=== PATIENT | female | born 2000 | race African-American/Black ===

== ENCOUNTER 2018-10-26 10:47 | Inpatient (IN) ==
[2018-10-26] MEDS ORDERED: cefTRIAXone SODIUM 2,000 MG/70 ML BAG IV STA (12:16)
[2018-10-26] MEDS ORDERED: MoRPHine SULFATE 10 MG/ML CARP/VIAL IV STA (12:16)
[2018-10-26] MEDS ORDERED: ACETAMINOPHEN 1,000 MG/100 ML VIAL IV STA (12:16)
[2018-10-26] MEDS ORDERED: SODIUM CHLORIDE 0.9% 1000ML 2,000 ML IV STA (12:22)
[2018-10-26 12:29] LABS: Basophils # (auto) 0.05 K/uL (0-0.2); Basophils % (auto) 0.9 %; Eosinophils # (auto) 0.08 K/uL (0-0.5); Eosinophils % (auto) 1.5 %; Hematocrit (blood only) 23.6 % (37-47); Hemoglobin 8.7 g/dL (12.0-16.0); Immature Granulocytes # (auto) 0.03 K/uL (0.00-0.02); Immature Granulocytes % (auto) 0.6 %; Lymphocytes % (auto) 18.8 %; Mean Corpuscular Hgb Conc 36.9 g/dL (32-36); Mean Corpuscular Volume 97.5 fL (80-100); Mean Platelet Volume 10.1 fL (7.4-10.4); Monocytes # (auto) 0.58 K/uL (0.11-0.59); Monocytes % (auto) 10.9 %; Neutrophils # (auto) 3.57 K/uL (1.4-6.5); Neutrophils % (auto) 67.3 %; Nucleated RBC % (auto) 1.9 %; Platelet Count 372 K/uL (130-400); RDW Coefficient of Variation 19.9 % (11.5-14.5); RDW Standard Deviation 69.9 fL (36.4-46.3); Red Blood Count 2.42 M/uL (4.2-5.4); Reticulocyte % 11.1 % (0.5-2.0); Reticulocytes # 0.27 10^6/uL (0.02-0.10); White Blood Count 5.31 K/uL (4.8-10.8)
[2018-10-26 12:35] LABS: Pregnancy Test, Serum Negative (Negative)
[2018-10-26 12:38] LABS: Alanine Aminotransferase 23 U/L (12-78); Albumin Level 4.1 gm/dl (3.4-5.0); Aspartate Aminotransferase 44 U/L (15-37); BUN Creatinine Ratio 4.4 (10-20); Blood Urea Nitrogen 2 mg/dl (7-18); Carbon Dioxide 24 mmol/L (21-32); Chloride 109 mmol/L (98-107); Creatinine Clr Calc Pharmacy 151.9 ml/min; Est GFR (African American) > 150.0; Est GFR (Non-African American) 133.5; Glucose 85 mg/dl (70-99); Magnesium 1.8 mg/dl (1.8-2.4); Potassium 3.7 mmol/L (3.5-5.1); Sodium 140 mmol/L (136-145)
[2018-10-26 12:40] LABS: Alkaline Phosphatase 67 U/L (45-117); Bilirubin,Total 3.5 mg/dl (0.2-1); Phosphorus 3.6 mg/dl (2.5-4.9); Total Protein 8.1 gm/dl (6.4-8.2)
[2018-10-26 12:43] LABS: INR 1.2 (0.9-1.1); Partial Thromboplastin Ratio 0.9; Partial Thromboplastin Time 23.9 Seconds (21.0-31.0); Prothrombin Time 11.7 Seconds (9.0-12.0)
--- NOTE | 2018-10-26 13:46 | XRay Report ---
XR chest 1V portable CLINICAL HISTORY: Sepsis. COMPARISON STUDY: No previous studies for comparison. FINDINGS: Lung volumes are normal. There is no pneumothorax or pleural effusion. No consolidation is noted. There is mild enlargement of the cardiac silhouette. No evidence for pulmonary edema. IMPRESSION: 1. Mild enlargement of the cardiac silhouette. 2. No consolidation. No evidence for pulmonary edema Electronically signed by: Carl Jay M.D. 10/26/2018 1:44 PM
[2018-10-26 14:23] LABS: Appearance Urine Clear (Clear); Bilirubin Urine Negative (Negative); Blood Urine Negative (Negative); Color Urine Yellow; Glucose Urine UA Negative (Negative); Ketones Urine Negative (Negative); Leukocyte Esterase Urine Negative (Negative); Nitrite Urine Negative (Negative); Protein Urine Negative (Negative); Specific Gravity Urine 1.009 (1.000-1.030); Urobilinogen Urine Negative (Negative); pH Urine 7.5 (4.5-7.5)
[2018-10-26] MEDS ORDERED: PROCHLORPERAZINE 2 ML IV ONE (14:36)
[2018-10-26] MEDS ORDERED: DiphenhydrAMINE HCL 50 MG/ML VIAL IV STA (14:58)
--- NOTE | 2018-10-26 16:09 | History & Physical Report ---
Date of Service October 26, 2018 Assessment & Plan (1) Sickle cell crisis: 18-year-old female with sickle cell anemia presenting with presumed crisis. Has history of acute chest syndrome in the past. Does not appear to have ACS at this time. -Admit to medical floor -Pain control with Dilaudid as needed -Supplemental oxygen - hydration with half-normal saline -Hematology consultation. Appreciate assistance with this case. Patient will need to establish care in the area -Close monitoring for development of acute chest syndrome -Follow cultures FENhalf-normal saline. Monitor electrolytes and replete as needed. Regular diet as tolerated ProphylaxisLovenox [place] Dispositionadmission to medical floor Present on Admission?: Yes History of Present Illness Chief Complaint: Sickle cell crisis Primary Care Provider: [facility] Patient is a 20-year-old black female with history of sickle cell anemia presenting with sickle cell crisis. Patient somnolent during exam after receiving pain medication and Benadryl for symptom management. Difficult to obtain information. She states that she was diagnosed with sickle cell anemia as a baby. She has had exacerbations in the past, acute chest syndrome last spring. She follows with hematology at [place]. She was on hydroxyurea in the past but was recently taken off. She reports being up-to-date on age-appropriate vaccinations. 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 States that she has pain in her entire body and head which has progressed over the last week. Pain is similar to her prior sickle cell crises. At present she denies chest pain or shortness of breath. She does report a subjective fever with chills yesterday. No additional complaints. ER course: Tylenol, ceftriaxone, Benadryl, morphine, Compazine, normal saline Allergies Allergy/AdvReac Type Severity Reaction Status Date / Time No Known Allergies Allergy Unverified 10/26/18 11:52 Home Medications Home Medications Medication Instructions Recorded Confirmed Type Jobelyn 1 tab PO HS 10/26/18 10/26/18 History cholecalciferol (vitamin D3) 0 unit PO HS 10/26/18 10/26/18 History [Vitamin D3] folic acid 0 mcg PO HS 10/26/18 10/26/18 History ibuprofen 200 mg PO Q6H PRN 10/26/18 10/26/18 History Past Med/Surg History Medical History Pneumonia Sickle cell anemia Family History Other Family history non-contributory Social History marital status: Single Current Living Situation: Other Current Living Situation Comment: Roommate 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 Feels Safe at Home: Yes Smoking Status: Never smoker Hx Alcohol Use: No Hx Substance Use: No Review of Systems Review of Systems: All systems reviewed & are unremarkable except as noted in HPI & below Physical Exam Physical Exam: General: patient somnolent, arousable, answers some questions then drifts back off to sleep. Protecting airway. Following some commands. Diffuse tenderness with palpation Skin: warm, dry, intact, no rashes or lesions HEENT: NC/AT, PERRL, EOMI, anicteric sclera, conjunctiva without injection, external ear normal to inspection and nontender, nares patent, moist mucus membranes, dentition intact, no oropharyngeal lesions, neck supple, trachea midline, no LAD, no thyromegaly, no JVD Heart: +S1/S2, regular, 2/6 systolic ejection murmur at left second intercostal space with radiation across precordium Lungs: equal air entry bilaterally, no rales/rhonchi/wheezes Abd: +BS, soft, NT/ND, no masses/organomegaly/ascites Ext: warm, 2+ pulses in UE/LE bilaterally, no clubbing/cyanosis or edema Neuro: nonfocal, moving all extremities on command with equal strength 5/5 Results & Data Vital Signs (Past 12 Hours) Vital Signs Temp Pulse Pulse Resp BP BP Pulse Ox 10/26/18 15:30 53 L 16 111/68 95 10/26/18 14:12 46 L 24 106/72 96 10/26/18 13:01 63 18 102/61 95 10/26/18 12:10 59 L 22 116/67 97 10/26/18 10:58 37 C 89 16 124/74 98 Laboratory Results Lab Results 10/26/18 10/26/18 10/26/18 Range/Units 11:29 11:29 11:29 WBC 5.31 (4.8-10.8) K/uL RBC 2.42 L (4.2-5.4) M/uL Hgb 8.7 L (12.0-16.0) g/dL Hct 23.6 L (37-47) % MCV 97.5 (80-100) fL MCH 36.0 H (25-34) pg MCHC 36.9 H (32-36) g/dL RDW Std Deviation 69.9 H (36.4-46.3) fL RDW Coeff of Nando 19.9 H (11.5-14.5) % Plt Count 372 (130-400) K/uL MPV 10.1 (7.4-10.4) fL Immature Gran % (Auto) 0.6 % Neut % (Auto) 67.3 % Lymph % (Auto) 18.8 % [place] % (Auto) 10.9 % Eos % (Auto) 1.5 % Baso % (Auto) 0.9 % Reticulocyte % (Auto) 11.1 H (0.5-2.0) % Immature Gran # (Auto) 0.03 H (0.00-0.02) K/uL Neut # (Auto) 3.57 (1.4-6.5) K/uL Lymph # (Auto) 1.00 L (1.2-3.4) K/uL [place] # (Auto) 0.58 (0.11-0.59) K/uL Eos # (Auto) 0.08 (0-0.5) K/uL Baso # (Auto) 0.05 (0-0.2) K/uL Reticulocyte # 0.27 H (0.02-0.10) 10^6/uL Absolute Nucleated RBC 0.10 H (0-0) K/uL Nucleated RBC % (auto) 1.9 % PT 11.7 (9.0-12.0) Seconds INR 1.2 H (0.9-1.1) APTT 23.9 (21.0-31.0) Seconds PTT Ratio 0.9 Sodium 140 (136-145) mmol/L Potassium 3.7 (3.5-5.1) mmol/L Chloride 109 H (98-107) mmol/L Carbon Dioxide 24 (21-32) mmol/L Anion Gap 7.0 (3-11) BUN 2 L (7-18) mg/dl Creatinine 0.57 L (0.6-1.2) mg/dl Est Cr Clr Drug Dosing 151.9 ml/min Est GFR ( Amer) > 150.0 Est GFR (Non-Af Amer) 133.5 BUN/Creatinine Ratio 4.4 L (10-20) Glucose 85 (70-99) mg/dl Lactate (0.4-2.0) mmol/L Calcium 9.0 (8.5-10.1) mg/dl Phosphorus 3.6 (2.5-4.9) mg/dl Magnesium 1.8 (1.8-2.4) mg/dl Total Bilirubin 3.5 H (0.2-1) mg/dl AST 44 H (15-37) U/L ALT 23 (12-78) U/L Alkaline Phosphatase 67 (45-117) U/L Total Protein 8.1 (6.4-8.2) gm/dl Albumin 4.1 (3.4-5.0) gm/dl Globulin 4.0 (2.5-4.0) gm/dl Albumin/Globulin Ratio 1.0 (0.9-2) HCG, Qual (Negative) Urine Color Urine Appearance (Clear) Urine pH (4.5-7.5) Ur Specific [place] (1.000-1.030) Urine Protein (Negative) Urine Glucose (UA) (Negative) Urine Ketones (Negative) Urine Blood (Negative) Urine Nitrite (Negative) Urine Bilirubin (Negative) Urine Urobilinogen (Negative) Ur Leukocyte Esterase (Negative) 10/26/18 10/26/18 10/26/18 Range/Units 11:29 12:47 14:10 WBC (4.8-10.8) K/uL RBC (4.2-5.4) M/uL Hgb (12.0-16.0) g/dL Hct (37-47) % MCV (80-100) fL MCH (25-34) pg MCHC (32-36) g/dL RDW Std Deviation (36.4-46.3) fL RDW Coeff of Nando (11.5-14.5) % Plt Count (130-400) K/uL MPV (7.4-10.4) fL Immature Gran % (Auto) % Neut % (Auto) % Lymph % (Auto) % [place] % (Auto) % Eos % (Auto) % Baso % (Auto) % Reticulocyte % (Auto) (0.5-2.0) % Immature Gran # (Auto) (0.00-0.02) K/uL Neut # (Auto) (1.4-6.5) K/uL Lymph # (Auto) (1.2-3.4) K/uL [place] # (Auto) (0.11-0.59) K/uL Eos # (Auto) (0-0.5) K/uL Baso # (Auto) (0-0.2) K/uL Reticulocyte # (0.02-0.10) 10^6/uL Absolute Nucleated RBC (0-0) K/uL Nucleated RBC % (auto) % PT (9.0-12.0) Seconds INR (0.9-1.1) APTT (21.0-31.0) Seconds PTT Ratio Sodium (136-145) mmol/L Potassium (3.5-5.1) mmol/L Chloride (98-107) mmol/L Carbon Dioxide (21-32) mmol/L Anion Gap (3-11) BUN (7-18) mg/dl Creatinine (0.6-1.2) mg/dl Est Cr Clr Drug Dosing ml/min Est GFR ( Amer) Est GFR (Non-Af Amer) BUN/Creatinine Ratio (10-20) Glucose (70-99) mg/dl Lactate 0.7 (0.4-2.0) mmol/L Calcium (8.5-10.1) mg/dl Phosphorus (2.5-4.9) mg/dl Magnesium (1.8-2.4) mg/dl Total Bilirubin (0.2-1) mg/dl AST (15-37) U/L ALT (12-78) U/L Alkaline Phosphatase (45-117) U/L Total Protein (6.4-8.2) gm/dl Albumin (3.4-5.0) gm/dl Globulin (2.5-4.0) gm/dl Albumin/Globulin Ratio (0.9-2) HCG, Qual Negative (Negative) Urine Color Yellow Urine Appearance Clear (Clear) Urine pH 7.5 (4.5-7.5) Ur Specific [place] 1.009 (1.000-1.030) Urine Protein Negative (Negative) Urine Glucose (UA) Negative (Negative) Urine Ketones Negative (Negative) Urine Blood Negative (Negative) Urine Nitrite Negative (Negative) Urine Bilirubin Negative (Negative) Urine Urobilinogen Negative (Negative) Ur Leukocyte Esterase Negative (Negative) Diagnostic Findings XR chest 1V portable CLINICAL HISTORY: Sepsis. COMPARISON STUDY: No previous studies for comparison. FINDINGS: Lung volumes are normal. There is no pneumothorax or pleural effusion. No consolidation is noted. There is mild enlargement of the cardiac silhouette. No evidence for pulmonary edema. IMPRESSION: 1. Mild enlargement of the cardiac silhouette. 2. No consolidation. No evidence for pulmonary edema Electronically signed by: Carl Jay M.D. 10/26/2018 1:44 PM Dictated: 10/26/18 1344 Transcribed: 10/26/18 1344 ECG Additional Comments: Study shows sinus bradycardia at 52 bpm with sinus arrhythmia, NJ = 200, QRS = 82, QTc = 425, T wave inversions present in anterior leads. No previous studies for comparison Code Status & VTE Plan Code Status Full code VTE Prophylaxis Plan VTE Prophylaxis will be ordered: Yes PG Care Time/CCT Total # of Minutes Spent Total Time Spent with Patient: Total time spent is greater than 50% in coordination of care (as documented) at patient's floor/unit and/or counseling patient:
--- NOTE | 2018-10-26 17:35 | Emergency Department Note ---
Entered by Lee Ann Mata acting as a scribe for History of Present Illness General Chief complaint: Fever Stated complaint: SICKLE CELL, FEVER Time Seen by Provider: 10/26/18 11:48 Source: patient History of Present Illness Provider complaint: Fever Onset (ago): hour(s) Location: head and back Pain Consistency: + constant Quality: + constant Associated symptoms: + chest pain (resolved ), + fever/chills, + shortness of breath (resolved ) and + other (Positive: head pain, back pain. Negative: d ysuria); no cough and no nausea/vomiting The patient is a 18 year old female with past medical history of pneumonia, sickle cell anemia, who presents to the ED with complaints of constant fever and chills that started a few hours ago. The patient reports she woke up from the chills and developed a fever. She notes she has sickle cell anemia and needs to find a doctor to follow up with since she just transferred to [place]. The patient additionally notes she has been having a moderate crisis since last week. She states her last crisis prior to this was in May. The patient reports she had chest pain and shortness of breath for a little. She notes she has head and back pain. The patient denies nausea, vomiting, dysuria, or cough. Home Medications Home Medications Medication Instructions Recorded Confirmed Type Jobelyn 1 tab PO HS 10/26/18 10/26/18 History cholecalciferol (vitamin D3) 0 unit PO HS 10/26/18 10/26/18 History [Vitamin D3] folic acid 0 mcg PO HS 10/26/18 10/26/18 History ibuprofen 200 mg PO Q6H PRN 10/26/18 10/26/18 History Allergies Allergy/AdvReac Type Severity Reaction Status Date / Time No Known Allergies Allergy Unverified 10/26/18 11:52 Past Med/Surg History Medical History Pneumonia Sickle cell anemia Family History Other Family history non-contributory Social History marital status: Single Current Living Situation: Other Current Living Situation Comment: Roommate 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 Feels Safe at Home: Yes Smoking Status: Never smoker Hx Alcohol Use: No Hx Substance Use: No Review of Systems See HPI for pertinent positives & negatives. and A total of 10 systems reviewed and were otherwise negative Physical Exam Vital Signs Vital Signs - 24 hr 10/26/18 10:58 10/26/18 12:10 10/26/18 13:01 Temperature 37 C Temperature Source Oral Sepsis Recent Fever Within 48 Hours No Sepsis New/Unexplained Change in Mental Status No Sepsis Action Taken by Nursing No Action Required Pulse Rate 89 Pulse Rate [Left Finger] 59 L 63 Pulse Rhythm [Left Finger] Respiratory Rate 16 22 18 Respiratory Effort / Characteristics Non-Labored Respiratory Depth Normal Respiratory Pattern Blood Pressure 124/74 Blood Pressure [Left Arm] 116/67 102/61 Blood Pressure Mean 90 Blood Pressure Mean [Left Arm] 83 74 Pulse Oximetry 98 97 95 Oxygen Delivery Method Room Air Room Air 10/26/18 14:12 10/26/18 15:30 10/26/18 16:00 Temperature Temperature Source Sepsis Recent Fever Within 48 Hours Sepsis New/Unexplained Change in Mental Status Sepsis Action Taken by Nursing Pulse Rate 55 L Pulse Rate [Left Finger] 46 L 53 L Pulse Rhythm [Left Finger] Regular Respiratory Rate 24 16 13 Respiratory Effort / Characteristics Non-Labored Spontaneous Respiratory Depth Normal Respiratory Pattern Regular Blood Pressure 114/72 Blood Pressure [Left Arm] 106/72 111/68 Blood Pressure Mean 86 Blood Pressure Mean [Left Arm] 83 82 Pulse Oximetry 96 95 Oxygen Delivery Method Room Air Room Air 10/26/18 16:30 10/26/18 17:00 Temperature Temperature Source Sepsis Recent Fever Within 48 Hours Sepsis New/Unexplained Change in Mental Status Sepsis Action Taken by Nursing Pulse Rate 54 L 54 L Pulse Rate [Left Finger] Pulse Rhythm [Left Finger] Respiratory Rate 14 15 Respiratory Effort / Characteristics Respiratory Depth Respiratory Pattern Blood Pressure 122/75 110/69 Blood Pressure [Left Arm] Blood Pressure Mean 90 82 Blood Pressure Mean [Left Arm] Pulse Oximetry Oxygen Delivery Method GENERAL: Awake, alert, fatigued appearing, in no distress HENT: Normocephalic, atraumatic. Oropharynx with dry mucous membranes and otherwise unremarkable. EYES: Normal conjunctiva. Sclera non-icteric. NECK: Supple. No nuchal rigidity. FROM. No JVD. RESPIRATORY: CTAP CARDIAC: Regular rate, normal rhythm. Extremities warm and well perfused. Pulses equal. ABDOMEN: Soft, non-distended. No tenderness to palpation. No rebound or guarding. No masses. RECTAL: Deferred. MUSCULOSKELETAL: Chest examination reveals no tenderness. The back is symmetrical on inspection without obvious abnormality. There is no CVA tenderness to palpation. No joint edema. LOWER EXTREMITIES: Calves are equal size bilaterally and non-tender. No edema. No discoloration. NEURO: Normal sensorium. No sensory or motor deficits noted. SKIN: No rash or jaundice noted. Course 1210: Past medical records reviewed. The patient was evaluated in room C11B. A complete history and physical exam was performed. 1449: I reevaluated the patient and she is feeling like her breathing is constricted. I discussed her test results and the treatment plan with her. She verbally agrees and understands. 1508: I discussed the patient's case with Dr. Keerthi RUIZ Hospitalist. She will evaluate the patient for further management. Consultations Consultation #1: I discussed the patient's case with Dr. Keerthi RUIZ Hospitalist. She will evaluate the patient for further management. Time: 15:08 Administered Medications Discontinued Medications Diphenhydramine HCl (Benadryl) 25 mg IV NOW STA Stop: 10/26/18 14:59 Last Admin: 10/26/18 15:08 Dose: 25 mg Documented by: [id number] Acetaminophen (Ofirmev) 1,000 mg in 100 mls @ 400 mls/hr IV NOW STA Stop: 10/26/18 12:30 Last Infusion: 10/26/18 13:00 Dose: 0 mls/hr Documented by: [id number] Admin: 10/26/18 12:34 Dose: 400 mls/hr Documented by: [id number] Ceftriaxone Sodium (Rocephin) 2,000 mg in 70 mls @ 140 mls/hr IV NOW STA Stop: 10/26/18 12:45 Last Infusion: 10/26/18 13:27 Dose: 0 mls/hr Documented by: [id number] Admin: 10/26/18 13:00 Dose: 140 mls/hr Documented by: [id number] Sodium Chloride (Nss 1000ml) 2,000 mls @ 999 mls/hr IV .Q2H1M STA Stop: 10/26/18 14:22 Last Infusion: 10/26/18 14:06 Dose: 0 mls/hr Documented by: [id number] Admin: 10/26/18 12:36 Dose: 999 mls/hr Documented by: [id number] Prochlorperazine (Compazine) 2 mls @ 1 mls/min IV ONE ONE Stop: 10/26/18 14:37 Last Admin: 10/26/18 14:44 Dose: 1 mls/min Documented by: [id number] Morphine Sulfate (Morphine Sulfate) 8 mg IV NOW STA Stop: 10/26/18 12:17 Last Admin: 10/26/18 12:34 Dose: 8 mg Documented by: [id number] Medical Decision Making Differential Diagnosis Differential diagnosis: Etiologies such as viral syndrome, otitis, pharyngitis, pneumonia, influenza, meningitis, urinary tract infection, sepsis, bacteremia, as well as others were entertained. Medical Records Attestation: I reviewed the patient's medical records. Home Medications Current Medication List: was personally reviewed by me Laboratory Data Attestation: I reviewed the patient's lab results. Result diagrams: 10/26/18 11:29 10/26/18 11:29 Lab Results 10/26/18 10/26/18 10/26/18 Range/Units 11:29 11:29 11:29 WBC 5.31 (4.8-10.8) K/uL RBC 2.42 L (4.2-5.4) M/uL Hgb 8.7 L (12.0-16.0) g/dL Hct 23.6 L (37-47) % MCV 97.5 (80-100) fL MCH 36.0 H (25-34) pg MCHC 36.9 H (32-36) g/dL RDW Std Deviation 69.9 H (36.4-46.3) fL RDW Coeff of Nando 19.9 H (11.5-14.5) % Plt Count 372 (130-400) K/uL MPV 10.1 (7.4-10.4) fL Immature Gran % (Auto) 0.6 % Neut % (Auto) 67.3 % Lymph % (Auto) 18.8 % [place] % (Auto) 10.9 % Eos % (Auto) 1.5 % Baso % (Auto) 0.9 % Reticulocyte % (Auto) 11.1 H (0.5-2.0) % Immature Gran # (Auto) 0.03 H (0.00-0.02) K/uL Neut # (Auto) 3.57 (1.4-6.5) K/uL Lymph # (Auto) 1.00 L (1.2-3.4) K/uL [place] # (Auto) 0.58 (0.11-0.59) K/uL Eos # (Auto) 0.08 (0-0.5) K/uL Baso # (Auto) 0.05 (0-0.2) K/uL Reticulocyte # 0.27 H (0.02-0.10) 10^6/uL Absolute Nucleated RBC 0.10 H (0-0) K/uL Nucleated RBC % (auto) 1.9 % PT 11.7 (9.0-12.0) Seconds INR 1.2 H (0.9-1.1) APTT 23.9 (21.0-31.0) Seconds PTT Ratio 0.9 Sodium 140 (136-145) mmol/L Potassium 3.7 (3.5-5.1) mmol/L Chloride 109 H (98-107) mmol/L Carbon Dioxide 24 (21-32) mmol/L Anion Gap 7.0 (3-11) BUN 2 L (7-18) mg/dl Creatinine 0.57 L (0.6-1.2) mg/dl Est Cr Clr Drug Dosing 151.9 ml/min Est GFR ( Amer) > 150.0 Est GFR (Non-Af Amer) 133.5 BUN/Creatinine Ratio 4.4 L (10-20) Glucose 85 (70-99) mg/dl Lactate (0.4-2.0) mmol/L Calcium 9.0 (8.5-10.1) mg/dl Phosphorus 3.6 (2.5-4.9) mg/dl Magnesium 1.8 (1.8-2.4) mg/dl Total Bilirubin 3.5 H (0.2-1) mg/dl AST 44 H (15-37) U/L ALT 23 (12-78) U/L Alkaline Phosphatase 67 (45-117) U/L Troponin I (0-0.045) ng/ml Total Protein 8.1 (6.4-8.2) gm/dl Albumin 4.1 (3.4-5.0) gm/dl Globulin 4.0 (2.5-4.0) gm/dl Albumin/Globulin Ratio 1.0 (0.9-2) HCG, Qual (Negative) Urine Color Urine Appearance (Clear) Urine pH (4.5-7.5) Ur Specific [place] (1.000-1.030) Urine Protein (Negative) Urine Glucose (UA) (Negative) Urine Ketones (Negative) Urine Blood (Negative) Urine Nitrite (Negative) Urine Bilirubin (Negative) Urine Urobilinogen (Negative) Ur Leukocyte Esterase (Negative) 10/26/18 10/26/18 10/26/18 Range/Units 11:29 11:29 12:47 WBC (4.8-10.8) K/uL RBC (4.2-5.4) M/uL Hgb (12.0-16.0) g/dL Hct (37-47) % MCV (80-100) fL MCH (25-34) pg MCHC (32-36) g/dL RDW Std Deviation (36.4-46.3) fL RDW Coeff of Nando (11.5-14.5) % Plt Count (130-400) K/uL MPV (7.4-10.4) fL Immature Gran % (Auto) % Neut % (Auto) % Lymph % (Auto) % [place] % (Auto) % Eos % (Auto) % Baso % (Auto) % Reticulocyte % (Auto) (0.5-2.0) % Immature Gran # (Auto) (0.00-0.02) K/uL Neut # (Auto) (1.4-6.5) K/uL Lymph # (Auto) (1.2-3.4) K/uL [place] # (Auto) (0.11-0.59) K/uL Eos # (Auto) (0-0.5) K/uL Baso # (Auto) (0-0.2) K/uL Reticulocyte # (0.02-0.10) 10^6/uL Absolute Nucleated RBC (0-0) K/uL Nucleated RBC % (auto) % PT (9.0-12.0) Seconds INR (0.9-1.1) APTT (21.0-31.0) Seconds PTT Ratio Sodium (136-145) mmol/L Potassium (3.5-5.1) mmol/L Chloride (98-107) mmol/L Carbon Dioxide (21-32) mmol/L Anion Gap (3-11) BUN (7-18) mg/dl Creatinine (0.6-1.2) mg/dl Est Cr Clr Drug Dosing ml/min Est GFR ( Amer) Est GFR (Non-Af Amer) BUN/Creatinine Ratio (10-20) Glucose (70-99) mg/dl Lactate 0.7 (0.4-2.0) mmol/L Calcium (8.5-10.1) mg/dl Phosphorus (2.5-4.9) mg/dl Magnesium (1.8-2.4) mg/dl Total Bilirubin (0.2-1) mg/dl AST (15-37) U/L ALT (12-78) U/L Alkaline Phosphatase (45-117) U/L Troponin I < 0.015 (0-0.045) ng/ml Total Protein (6.4-8.2) gm/dl Albumin (3.4-5.0) gm/dl Globulin (2.5-4.0) gm/dl Albumin/Globulin Ratio (0.9-2) HCG, Qual Negative (Negative) Urine Color Urine Appearance (Clear) Urine pH (4.5-7.5) Ur Specific [place] (1.000-1.030) Urine Protein (Negative) Urine Glucose (UA) (Negative) Urine Ketones (Negative) Urine Blood (Negative) Urine Nitrite (Negative) Urine Bilirubin (Negative) Urine Urobilinogen (Negative) Ur Leukocyte Esterase (Negative) 10/26/18 Range/Units 14:10 WBC (4.8-10.8) K/uL RBC (4.2-5.4) M/uL Hgb (12.0-16.0) g/dL Hct (37-47) % MCV (80-100) fL MCH (25-34) pg MCHC (32-36) g/dL RDW Std Deviation (36.4-46.3) fL RDW Coeff of Nando (11.5-14.5) % Plt Count (130-400) K/uL MPV (7.4-10.4) fL Immature Gran % (Auto) % Neut % (Auto) % Lymph % (Auto) % [place] % (Auto) % Eos % (Auto) % Baso % (Auto) % Reticulocyte % (Auto) (0.5-2.0) % Immature Gran # (Auto) (0.00-0.02) K/uL Neut # (Auto) (1.4-6.5) K/uL Lymph # (Auto) (1.2-3.4) K/uL [place] # (Auto) (0.11-0.59) K/uL Eos # (Auto) (0-0.5) K/uL Baso # (Auto) (0-0.2) K/uL Reticulocyte # (0.02-0.10) 10^6/uL Absolute Nucleated RBC (0-0) K/uL Nucleated RBC % (auto) % PT (9.0-12.0) Seconds INR (0.9-1.1) APTT (21.0-31.0) Seconds PTT Ratio Sodium (136-145) mmol/L Potassium (3.5-5.1) mmol/L Chloride (98-107) mmol/L Carbon Dioxide (21-32) mmol/L Anion Gap (3-11) BUN (7-18) mg/dl Creatinine (0.6-1.2) mg/dl Est Cr Clr Drug Dosing ml/min Est GFR ( Amer) Est GFR (Non-Af Amer) BUN/Creatinine Ratio (10-20) Glucose (70-99) mg/dl Lactate (0.4-2.0) mmol/L Calcium (8.5-10.1) mg/dl Phosphorus (2.5-4.9) mg/dl Magnesium (1.8-2.4) mg/dl Total Bilirubin (0.2-1) mg/dl AST (15-37) U/L ALT (12-78) U/L Alkaline Phosphatase (45-117) U/L Troponin I (0-0.045) ng/ml Total Protein (6.4-8.2) gm/dl Albumin (3.4-5.0) gm/dl Globulin (2.5-4.0) gm/dl Albumin/Globulin Ratio (0.9-2) HCG, Qual (Negative) Urine Color Yellow Urine Appearance Clear (Clear) Urine pH 7.5 (4.5-7.5) Ur Specific [place] 1.009 (1.000-1.030) Urine Protein Negative (Negative) Urine Glucose (UA) Negative (Negative) Urine Ketones Negative (Negative) Urine Blood Negative (Negative) Urine Nitrite Negative (Negative) Urine Bilirubin Negative (Negative) Urine Urobilinogen Negative (Negative) Ur Leukocyte Esterase Negative (Negative) Imaging Data Radiologist's Impression: Radiology results as stated below per my review and the radiologist's interpretation: XR chest 1V portable CLINICAL HISTORY: Sepsis. COMPARISON STUDY: No previous studies for comparison. FINDINGS: Lung volumes are normal. There is no pneumothorax or pleural effusion. No consolidation is noted. There is mild enlargement of the cardiac silhouette. No evidence for pulmonary edema. IMPRESSION: 1. Mild enlargement of the cardiac silhouette. 2. No consolidation. No evidence for pulmonary edema Electronically signed by: Carl Jay M.D. 10/26/2018 1:44 PM ECG Data Attestation: I personally reviewed and interpreted this ECG as follows: Indication: chest pain Rate (beats per minute): 52 Rhythm: sinus bradycardia Findings: + other (precordial T wave inversion); no ST depression, no ST elevation and no acute ischemic change Blood Pressure Blood Pressure Findings: Normal blood pressure Blood Pressure Disposition: did not require urgent referral MDM Narrative The patient is a pleasant 18-year-old woman with a past medical history of sickle cell anemia who presents emergency department with worsening body pain and feverishness that began last night per hpi. 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 On arrival the patient is fatigued appearing but no acute distress, afebrile with stable vital signs. Patient appears clinically dry. Lungs are clear. Abdomen is benign. EKG with precordial T wave inversions but otherwise no overt acute ischemia. No prior EKGs for comparison. Chest x-ray negative for acute process. There is question of cardiomegaly and limited bedside ultrasound was performed and did not demonstrate any significant pericardial effusion. WBC within normal limits. H/H 8.7/23.6 without prior lisa ues for comparison. Platelets within normal limits. Reticulocyte count is elevated 0.27 (11%) consistent with sickle cell crisis. Lactate wnl. Chemistry without acidosis. AST slightly elevated at 44, nonspecific. Otherwise, electrolytes and LFTs unremarkable. Troponin negative. UA negative for infection. Patient was feeling improved after IV fluid hydration and APAP and morphine. However given the patient's evidence of sickle cell crisis in the setting of her report of fevers reasonable to admit the patient for further hydration and monitoring. On arrival the patient did have blood cultures drawn and was treated empirically with dose of ceftriaxone. Case was discussed with Dr. Castrejon, [facility] hospitalist, who evaluate the patient for admission. Impression & Plan Sickle cell crisis, Dehydration, Feels feverish Discharge Plan Visit Data Chief Complaint: Fever Stated Complaint: SICKLE CELL, FEVER ED Provider: Robert Mobley Discharge Problem: Sickle cell crisis, Dehydration, Feels feverish Patient Disposition: Being Evaluated by Hospitalist The scribe's documentation has been prepared under my direction and personally reviewed by me in its entirety. I confirm that the note above accurately reflects all work, treatment, procedures, and medical decision making performed by me.
[2018-10-26] MEDS ORDERED: ONDANSETRON INJ 2 MG/ML 2 ML VIAL IV PRN (17:38)
[2018-10-26] MEDS ORDERED: HYDROmorphone INJ 0.5 MG/0.5 ML SYR IV PRN ×2 (17:38→19:53)
[2018-10-26] MEDS ORDERED: ENOXAPARIN INJ 40 MG/0.4 ML SYR SQ SCH (18:00)
[2018-10-26] MEDS: SODIUM CHLORIDE 0.45 % 1,000 ML IV SCH (18:13)
[2018-10-26 19:03] LABS: Anisocytosis Present; Howell-Jolly Bodies 1+; Ovalocytes 2+; Poikilocytosis Present; Polychromasia 1+; Sickle Cells 1+; Spherocytes 1+
[2018-10-26] MEDS ORDERED: SODIUM CHLORIDE 0.9% 250 ML IV PRN (20:07)
[2018-10-26] MEDS ORDERED: DiphenhydrAMINE HCL 50 MG/ML VIAL PO ONE (20:12)
[2018-10-26] MEDS ORDERED: ACETAMINOPHEN 325 MG TAB PO ONE (20:12)
[2018-10-26] MEDS ORDERED: FOLIC ACID 400 MCG TAB PO SCH (21:00)
[2018-10-27] MEDS ORDERED: Nursing to Pharmacy Communication ONE (00:32)
[2018-10-27] MEDS ORDERED: ACETAMINOPHEN 325 MG TAB PO ONE (06:00)
[2018-10-27] MEDS ORDERED: DiphenhydrAMINE HCL 50 MG/ML VIAL PO ONE (06:00)
[2018-10-27 06:09] LABS: Basophils # (auto) 0.06 K/uL (0-0.2); Basophils % (auto) 1.3 %; Eosinophils # (auto) 0.08 K/uL (0-0.5); Eosinophils % (auto) 1.7 %; Hematocrit (blood only) 21.9 % (37-47); Hemoglobin 7.9 g/dL (12.0-16.0); Immature Granulocytes # (auto) 0.02 K/uL (0.00-0.02); Immature Granulocytes % (auto) 0.4 %; Lymphocytes # (auto) 2.25 K/uL (1.2-3.4); Mean Corpuscular Hgb Conc 36.1 g/dL (32-36); Mean Corpuscular Volume 99.1 fL (80-100); Mean Platelet Volume 9.9 fL (7.4-10.4); Monocytes % (auto) 13.1 %; Neutrophils # (auto) 1.58 K/uL (1.4-6.5); Neutrophils % (auto) 34.5 %; Nucleated RBC # (auto) 0.16 K/uL (0-0); Nucleated RBC % (auto) 3.4 %; Platelet Count 306 K/uL (130-400); RDW Coefficient of Variation 19.7 % (11.5-14.5); RDW Standard Deviation 71.1 fL (36.4-46.3); Red Blood Count 2.21 M/uL (4.2-5.4); White Blood Count 4.59 K/uL (4.8-10.8)
[2018-10-27 06:46] LABS: Anisocytosis Present; Ovalocytes 1+; Polychromasia 1+; Sickle Cells 2+; Spherocytes 1+
[2018-10-27] MEDS: SODIUM CHLORIDE 0.45 % 1,000 ML IV SCH (06:47)
[2018-10-27 06:53] LABS: BUN Creatinine Ratio 5.2 (10-20); Blood Urea Nitrogen 3 mg/dl (7-18); Calcium 8.3 mg/dl (8.5-10.1); Carbon Dioxide 26 mmol/L (21-32); Chloride 109 mmol/L (98-107); Creatinine Clr Calc Pharmacy 160.3 ml/min; Est GFR (African American) > 150.0; Est GFR (Non-African American) 135.8; Glucose 103 mg/dl (70-99); Potassium 3.1 mmol/L (3.5-5.1); Sodium 141 mmol/L (136-145)
--- NOTE | 2018-10-27 08:47 | Consultation Report ---
DATE OF CONSULTATION: 10/27/2018 HEMATOLOGY CONSULTATION REASON FOR CONSULTATION: Sickle cell crisis. HISTORY OF PRESENT ILLNESS: James is a pleasant 18-year-old Iranian female who presents to [facility] with diffuse skeletal pain and profound fatigue. She actually reported chills prior to presentation as well. James was diagnosed with sickle cell anemia as a child. Her last major sickle crisis occurred in May when she was diagnosed with acute chest syndrome. She was transfused 2 units of blood at that time. Apparently, she follows with the staff latin teacher at [facility], but has not seen the continuous improvement consultant in a while. She was started on hydroxyurea and recently discontinued because of fear of infection at that time. She estimates only being off therapy for a couple of weeks. Nonetheless, she describes her pain as a dull persistent achy skeletal pain involving her complete skeleton, specifically her head. She denies shortness of breath or dyspnea. Chest x-ray was otherwise unremarkable. She is presently receiving IV fluids, oxygen and opiates. I have also recommended a type and cross and transfusion of 2 units of blood. PAST MEDICAL HISTORY: Significant for pneumonia/acute chest syndrome, sickle cell anemia. PAST SURGICAL HISTORY: Negative. MEDICATIONS: Prior to admission include 1 tablet p.o. at bedtime, cholecalciferol daily, folic acid daily, ibuprofen 200 mg p.o. q.6 hours p.r.n. ALLERGIES: No known drug allergies. FAMILY HISTORY: Negative. 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 She is single. She is a nonsmoker, nondrinker, non-illicit drug user. REVIEW OF SYSTEMS: Again, as per HPI. CONSTITUTIONAL: The patient denies any overt fever, although she did experience chill. Most prominently for diffuse skeletal pain and fatigue. She is not anorexic or losing weight. SKIN: No overt rashes or lesions. No history of dermatoses. HEENT: She denies active headache, lightheadedness or dizziness. No acute visual or hearing deficits. No sinus symptoms, sore throat or dysphagia. LYMPHATICS: No history of lymphoproliferative disease. CARDIAC: No history of coronary artery disease, no angina or palpitations. PULMONARY: Negative for COPD and she is not short of breath, dyspneic or orthopneic. No cough or hemoptysis. GASTROINTESTINAL: Negative for abdominal pain, nausea, vomiting, diarrhea or constipation, hematochezia or melena stools. GENITOURINARY: No hematuria, dysuria or urinary incontinence. PSYCHIATRIC: Negative for anxiety, depression or psychoses. ENDOCRINE: Negative for diabetes or thyroid disease. NEUROLOGIC: Negative for seizure, stroke, or migraine headache. HEMATOLOGIC: Positive for progressive anemia and reticulocytosis. PHYSICAL EXAMINATION: GENERAL: A very pleasant 18-year-old Iranian female in no acute distress. VITAL SIGNS: Temperature 36.6, pulse 50, respiratory rate 18, blood pressure 95/55. SKIN: Warm, dry, noncyanotic without petechia, rash or ecchymosis. HEENT: Head is atraumatic, normocephalic. Eyes: PERRLA, EOMI. Sclerae nonicteric. No conjunctival injection. Nares are patent without rhinorrhea or discharge. Throat is clear. Tongue is midline. Mucous membranes are moist. NECK: Supple without JVD or thyromegaly. LYMPHATICS: No cervical or supraclavicular palpable nodes. HEART: Regular rate and rhythm. No clicks, rubs, murmurs or gallops. LUNGS: Clear to auscultation bilaterally. ABDOMEN: Soft, nontender, nondistended, without palpable hepatosplenomegaly. EXTREMITIES: No calf tenderness or swelling. No clubbing, cyanosis or edema. MUSCULOSKELETAL: Strength and pulses are equal in all 4 quadrants. NEUROLOGICAL: She is awake, alert and oriented x3. Cranial nerves II-XII are grossly intact. LABORATORY DATA: WBC count 4590, hemoglobin 7.9, platelet count 306,000 with 2+ keshia, spherocytes are noted as well as ovalocytes and [place] bodies. Sodium 141, potassium 3.1, chloride 109, carbon dioxide 26, creatinine 0.54, BUN 3. RADIOGRAPHIC DATA: Chest x-ray done on admission, no active pulmonary processes. IMPRESSION: 1. Sickle crisis. 2. History of acute chest syndrome. PLAN: In summary, this very pleasant 18-year-old Iranian female presents to our Emergency Room with diffuse skeletal pain and fatigue. Clearly, her hemoglobin is decreased with robust reticulocytosis consistent with sickle crisis. Appropriately, she was started on vigorous IV hydration and should be provided supplemental oxygen in the near term. Agree with titrating opioids for pain control. Additionally, I have recommended transfusion of 2 packed units of cells. Nursing informs me she is a difficult crossmatch, which is not surprising. Long-term, they need to consider getting her back on Hydrea, but we will leave that up to her latin teacher in [place]. Agree with medical management otherwise. 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 I have nothing further to add at this point. We will continue to follow her periodically during her stay.
[2018-10-27] MEDS ORDERED: ACETAMINOPHEN 325 MG TAB PO SCH (09:15)
[2018-10-27] MEDS ORDERED: DiphenhydrAMINE HCL 50 MG/ML VIAL PO SCH (09:15)
--- NOTE | 2018-10-27 09:36 | Family Medicine Progress Note ---
Date of Service October 27, 2018 Assessment & Plan (1) Sickle cell crisis: - Pain controlled with dilaudid in ED. Pt has not asked for pain control since and has been well controlled through the morning - Fluid hydration with half normal saline as per guidelines - 40 mEq potassium given PO since K level was 3.1 this morning - Oxygenating at 96% on 2 L NC - Symptoms of crisis appear to have passed and be well controlled, patient okay for discharge. (2) Sickle cell anemia: - will send discharge summary to [facility] in [place] - Dr. Cohen will take over care of Ms. Early as PCP in resident clinic here in [place] to allow for optimal transition of care. (3) Dehydration: resolved with IVF Supervising Physician Co-Signing Physician Notes Attending attestation Pt seen and examined in concert with Dr. Cohen. In agreement with the documented findings as noted in the resident documentation with any exceptions or additions as noted here. For full attending attestation, please see documentation from day of discharge. Subjective Pt is a 18 yo F with a PMH of sickle cell disease and pneumonia admitted last night for sickle cell crises. This morning she says she still has pain but it is more diffuse and better than before. She attests to chest pain but says it is mostly near her neck, is not pressure or chest tightness. Denies SOB, pain with inspiration, headaches at this time. Says her doctor recently took her off Hydroxyurea to "check if she had an i nfection". Review of Systems Constitutional: + chills and + body aches; no fever Respiratory: no cough, no dyspnea, no dyspnea on exertion and no pain on inspiration Cardiovascular: + chest pain (pain in chest near neck, denies chest pressure) and + chest pain at rest; no dyspnea at rest Gastrointestinal: no abdominal pain, no bloating, no nausea, no vomiting, no dysphagia, no cramping and no constipation Physical Exam Constitutional: well developed, well nourished, + well hydrated and cooperative; no acute distress and no altered mental status Neck: trachea midline Respiratory: Auscultation: lungs clear to auscultation bilaterally and + diminished lung sounds (RLL); no crackles, no rales, no rhonchi, no wheezes and no pleural rub Cardiovascular: Rate/Rhythm: regular rate Heart Sounds: + murmur (3/6 holosystolic blowing murmur at the L intercostal space); no click and no gallop Gastrointestinal (Abdomen): Inspection/Auscultation: abdomen normal to inspection and normal bowel sounds; abdomen not distended, no abdominal edema and no scaphoid Percussion/Palpation: + abdomen tender (mild diffuse tenderness to palpation) and abdomen soft; no guarding and abdomen not rigid Skin: no dry skin Results & Data Vital Signs (Past 12 Hours) Vital Signs Temp Pulse Resp BP Pulse Ox 10/27/18 07:32 36.6 C 50 L 18 95/55 L 100 10/26/18 22:22 37 C 46 L 16 92/53 L 100 Laboratory Results WBC 4.59 K/uL (4.8-10.8) L 10/27/18 05:40 RBC 2.21 M/uL (4.2-5.4) L 10/27/18 05:40 Hgb 7.9 g/dL (12.0-16.0) L 10/27/18 05:40 Hct 21.9 % (37-47) L 10/27/18 05:40 MCV 99.1 fL (80-100) 10/27/18 05:40 MCH 35.7 pg (25-34) H 10/27/18 05:40 MCHC 36.1 g/dL (32-36) H 10/27/18 05:40 RDW Std Deviation 71.1 fL (36.4-46.3) H 10/27/18 05:40 RDW Coeff of N[place] 19.7 % (11.5-14.5) H 10/27/18 05:40 Plt Count 306 K/uL (130-400) 10/27/18 05:40 MPV 9.9 fL (7.4-10.4) 10/27/18 05:40 Immature Gran % (Auto) 0.4 % 10/27/18 05:40 Neut % (Auto) 34.5 % 10/27/18 05:40 Lymph % (Auto) 49.0 % 10/27/18 05:40 [place] % (Auto) 13.1 % 10/27/18 05:40 Eos % (Auto) 1.7 % 10/27/18 05:40 Baso % (Auto) 1.3 % 10/27/18 05:40 Reticulocyte % (Auto) 11.1 % (0.5-2.0) H 10/26/18 11:29 Immature Gran # (Auto) 0.02 K/uL (0.00-0.02) 10/27/18 05:40 Neut # (Auto) 1.58 K/uL (1.4-6.5) 10/27/18 05:40 Lymph # (Auto) 2.25 K/uL (1.2-3.4) 10/27/18 05:40 [place] # (Auto) 0.60 K/uL (0.11-0.59) H 10/27/18 05:40 Eos # (Auto) 0.08 K/uL (0-0.5) 10/27/18 05:40 Baso # (Auto) 0.06 K/uL (0-0.2) 10/27/18 05:40 Reticulocyte # 0.27 10^6/uL (0.02-0.10) H 10/26/18 11:29 Absolute Nucleated RBC 0.16 K/uL (0-0) H 10/27/18 05:40 Nucleated RBC % (auto) 3.4 % 10/27/18 05:40 Polychromasia 1+ 10/27/18 05:40 Poikilocytosis Present 10/26/18 11:29 Anisocytosis Present 10/27/18 05:40 Spherocytes 1+ 10/27/18 05:40 Sickle Cells 2+ 10/27/18 05:40 Ovalocytes 1+ 10/27/18 05:40 [place] Bodies 1+ 10/26/18 11:29 PT 11.7 Seconds (9.0-12.0) 10/26/18 11:29 INR 1.2 (0.9-1.1) H 10/26/18 11:29 APTT 23.9 Seconds (21.0-31.0) 10/26/18 11:29 PTT Ratio 0.9 10/26/18 11:29 Sodium 141 mmol/L (136-145) 10/27/18 05:40 Potassium 3.1 mmol/L (3.5-5.1) L D 10/27/18 05:40 Chloride 109 mmol/L (98-107) H 10/27/18 05:40 Carbon Dioxide 26 mmol/L (21-32) 10/27/18 05:40 Anion Gap 6.0 (3-11) 10/27/18 05:40 BUN 3 mg/dl (7-18) L 10/27/18 05:40 Creatinine 0.54 mg/dl (0.6-1.2) L 10/27/18 05:40 Est Cr Clr Drug Dosing 160.3 ml/min 10/27/18 05:40 Est GFR ( Amer) > 150.0 10/27/18 05:40 Est GFR (Non-Af Amer) 135.8 10/27/18 05:40 BUN/Creatinine Ratio 5.2 (10-20) L 10/27/18 05:40 Glucose 103 mg/dl (70-99) H 10/27/18 05:40 Lactate 0.7 mmol/L (0.4-2.0) 10/26/18 12:47 Calcium 8.3 mg/dl (8.5-10.1) L 10/27/18 05:40 Phosphorus 3.6 mg/dl (2.5-4.9) 10/26/18 11:29 Magnesium 1.8 mg/dl (1.8-2.4) 10/26/18 11:29 Total Bilirubin 3.5 mg/dl (0.2-1) H 10/26/18 11:29 AST 44 U/L (15-37) H 10/26/18 11:29 ALT 23 U/L (12-78) 10/26/18 11:29 Alkaline Phosphatase 67 U/L (45-117) 10/26/18 11:29 Troponin I < 0.015 ng/ml (0-0.045) 10/26/18 11:29 Total Protein 8.1 gm/dl (6.4-8.2) 10/26/18 11:29 Albumin 4.1 gm/dl (3.4-5.0) 10/26/18 11:29 Globulin 4.0 gm/dl (2.5-4.0) 10/26/18 11:29 Albumin/Globulin Ratio 1.0 (0.9-2) 10/26/18 11:29 HCG, Qual Negative (Negative) 10/26/18 11:29 Urine Color Yellow 10/26/18 14:10 Urine Appearance Clear (Clear) 10/26/18 14:10 Urine pH 7.5 (4.5-7.5) 10/26/18 14:10 Ur Specific [place] 1.009 (1.000-1.030) 10/26/18 14:10 Urine Protein Negative (Negative) 10/26/18 14:10 Urine Glucose (UA) Negative (Negative) 10/26/18 14:10 Urine Ketones Negative (Negative) 10/26/18 14:10 Urine Blood Negative (Negative) 10/26/18 14:10 Urine Nitrite Negative (Negative) 10/26/18 14:10 Urine Bilirubin Negative (Negative) 10/26/18 14:10 Urine Urobilinogen Negative (Negative) 10/26/18 14:10 Ur Leukocyte Esterase Negative (Negative) 10/26/18 14:10 Blood Type B Positive 10/26/18 20:18 Blood Type Recheck B Positive 10/26/18 20:39 Antibody Screen NEGATIVE 10/26/18 20:18 Antibody Identification Anti-M 10/26/18 20:18 Crossmatch See Detail 10/26/18 20:18 Cardiac TTE in [place] in 06/2018: 60% EF, no LVH, normal PA pressures, no stenosis or regurgitation of valves PG Care Time/CCT Total # of Minutes Spent Total Time Spent with Patient: Total time spent is greater than 50% in coordination of care (as documented) at patient's floor/unit and/or counseling patient: Resident Activity Tracking Resident Involvement: Resident Care Provided Care Provided: Adult Hospital Medicine
[2018-10-27] MEDS ORDERED: POTASSIUM CHLORIDE 20 MEQ TABCR PO STA (14:22)
[2018-10-27 14:41] LABS: Hematocrit (blood only) 26.6 % (37-47); Hemoglobin 9.7 g/dL (12.0-16.0)
--- NOTE | 2018-10-27 16:43 | Discharge Summary ---
Date of Service October 27, 2018 Admission HPI Per Admitting Provider Patient is a 20-year-old black female with history of sickle cell anemia presenting with sickle cell crisis. Patient somnolent during exam after receiving pain medication and Benadryl for symptom management. Difficult to obtain information. She states that she was diagnosed with sickle cell anemia as a baby. She has had exacerbations in the past, acute chest syndrome last spring. She follows with hematology at [facility]. She was on hydroxyurea in the past but was recently taken off. She reports being up-to-date on age-appropriate vaccinations. 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 States that she has pain in her entire body and head which has progressed over the last week. Pain is similar to her prior sickle cell crises. At present she denies chest pain or shortness of breath. She does report a subjective fever with chills yesterday. No additional complaints. ER course: Tylenol, ceftriaxone, Benadryl, morphine, Compazine, normal saline Admission Exam Per Admitting Provider General: patient somnolent, arousable, answers some questions then drifts back off to sleep. Protecting airway. Following some commands. Diffuse tenderness with palpation Skin: warm, dry, intact, no rashes or lesions HEENT: NC/AT, PERRL, EOMI, anicteric sclera, conjunctiva without injection, external ear normal to inspection and nontender, nares patent, moist mucus membranes, dentition intact, no oropharyngeal lesions, neck supple, trachea midline, no LAD, no thyromegaly, no JVD Heart: +S1/S2, regular, 2/6 systolic ejection murmur at left second intercostal space with radiation across precordium Lungs: equal air entry bilaterally, no rales/rhonchi/wheezes Abd: +BS, soft, NT/ND, no masses/organomegaly/ascites Ext: warm, 2+ pulses in UE/LE bilaterally, no clubbing/cyanosis or edema Neuro: nonfocal, moving all extremities on command with equal strength 5/5 Principal Diagnosis Sickle Cell Crisis Discharge Exam Constitutional well developed, well nourished, + well hydrated and cooperative; no acute distress and no altered mental status Neck trachea midline Respiratory Auscultation: lungs clear to auscultation bilaterally and + diminished lung sounds (RLL); no crackles, no rales, no rhonchi, no wheezes and no pleural rub Cardiovascular Rate/Rhythm: regular rate Heart Sounds: + murmur (3/6 holosystolic blowing murmur at the L intercostal space); no click and no gallop Gastrointestinal (Abdomen) Inspection/Auscultation: abdomen normal to inspection and normal bowel sounds; abdomen not distended, no abdominal edema and no scaphoid Percussion/Palpation: + abdomen tender (mild diffuse tenderness to palpation) and abdomen soft; no guarding and abdomen not rigid Skin no dry skin Discharge Data Allergies Allergy/AdvReac Type Severity Reaction Status Date / Time No Known Allergies Allergy Unverified 10/26/18 11:52 Consultations 10/26/18 15:09 ED Decision to Admit Stat 10/26/18 17:38 Consult Hematology Routine Hospital Course (1) Sickle cell crisis: - Pain controlled with dilaudid in ED. Pt has not asked for pain control since and has been well controlled through the morning - Fluid hydration with half normal saline as per guidelines - 40 mEq potassium given PO since K level was 3.1 this morning - Oxygenating at 96% on 2 L NC - Symptoms of crisis appear to have passed and be well controlled at pain scale 1/10, patient okay for discharge. (2) Sickle cell anemia: - will send discharge summary to [facility] in [place] - transfused 2u pRBCs per hematology. F/U H&H after transfusion satisfactory with Hg/Hct of 9.7/26.6. - Dr. Bailey will take over care of Ms. Early as PCP in resident clinic here in [place] to allow for optimal transition of care. (3) Dehydration: resolved with 1/2 NS IVF Total Time Total Time Spent Total Time Spent (In Minutes): 30 Discharge Plan Discharge Items Patient Disposition: Home - Self-Care Reason For Visit: SICKLE CELL CRISIS Discharge Diagnosis: Sickle cell crisis Discharge Goals: Decrease discomfort and Improve function Activity: Resume your previous activity Non-emergency contact: Primary Care Provider Call non-emergency contact if: you have any medication questions, your pain is worsening and your temperature is above 101 Follow-up/Referrals: [place] [Primary Care Provider] - Zamzam Bailey MD [Resident] - Diet: Regular Addtl Provider Instructions: Follow up with Dr. Bailey in [facility] at [address]. Continue taking ibuprofen to control pain as needed. Call Prescriptions: Continued folic acid 400 mcg Tablet PO HS RF: 0 ibuprofen 200 mg Tablet 200 mg PO Q6H PRN (Reason: Pain) RF: 0 cholecalciferol (vitamin D3) [Vitamin D3] 1,000 unit Capsule PO HS RF: 0 Discontinued Jobelyn 1 tab PO HS RF: 0 Stand-Alone Forms: [facility] Orders: Discharge Order (Routine); Ordered 10/27/18 Ordered By: Zamzam Bailey Admission Data Admit Date/Time: 10/26/18 15:26 Attending Provider: Jamie Shaw Admit Provider: Jaymie Castrejon Primary Care Provider: [facility] Other Providers: Jaymie Castrejon ; Jp Dietrich V ; Zamzam Bailey Service: Medical Other Interventions: Discharge Summary Assessment (RN) Last Done: 10/27/18 14:42 Supervising Physician Co-Signing Physician Notes Attending attestation Pt seen and examined in concert with Dr. Bailey. In agreement with the documented findings as noted in the resident documentation with any exceptions or additions as noted here. Essential resolution of presenting complaint of diffuse pain. On examination, S1/S2 nl RRR 3/6 GREYSON best heard over left 2nd IC space, chronic. CTAB. Abd NT/ND BS+ve Sickle Cell Disease with crisis - hematology consultation - resolved without further need for pain medication. Would benefit from local PCP and potentially, local (or intermediary) hematology. Contact primary refrigeration systems installer as outpatient for restart of hydroxyurea therapy. Anemia in the setting of Sickle Cell - s/p 2U PRBC with good response. Mental health concern - previously treated with risperidone per available records. To be further explored by Dr. Bailey in outpatient setting. Else see resident documentation as noted. Resident Activity Tracking Resident Involvement: Resident Care Provided Care Provided: Adult Hospital Medicine
== END 2018-10-27 16:57 | disposition home or self-care (01) | DRG 812 ==
LOC: ED 10:47 → 4W 15:26 → SUATTDRO 15:26 → 4W 17:32
DX: D57.00 Hb-SS disease with crisis, unspecified

== ENCOUNTER 2018-11-23 01:50 | Observation (INO) ==
[2018-11-23] MEDS ORDERED: SODIUM CHLORIDE 0.9% 1000ML 1,000 ML IV ONE ×3 (01:54→06:37)
[2018-11-23] MEDS ORDERED: HYDROmorphone INJ 0.5 MG/0.5 ML SYR IV PRN (01:54)
[2018-11-23] MEDS ORDERED: ONDANSETRON INJ 2 MG/ML 2 ML VIAL IV STA (01:54)
[2018-11-23 02:29] LABS: Basophils # (auto) 0.04 K/uL (0-0.2); Basophils % (auto) 0.5 %; Eosinophils % (auto) 4.7 %; Hematocrit (blood only) 24.7 % (37-47); Hemoglobin 8.7 g/dL (12.0-16.0); Immature Granulocytes # (auto) 0.04 K/uL (0.00-0.02); Immature Granulocytes % (auto) 0.5 %; Lymphocytes # (auto) 3.39 K/uL (1.2-3.4); Lymphocytes % (auto) 39.7 %; Mean Corpuscular Hemoglobin 33.3 pg (25-34); Mean Corpuscular Hgb Conc 35.2 g/dL (32-36); Mean Corpuscular Volume 94.6 fL (80-100); Mean Platelet Volume 9.3 fL (7.4-10.4); Monocytes # (auto) 0.74 K/uL (0.11-0.59); Monocytes % (auto) 8.7 %; Neutrophils # (auto) 3.93 K/uL (1.4-6.5); Neutrophils % (auto) 45.9 %; Nucleated RBC # (auto) 0.03 K/uL (0-0); Nucleated RBC % (auto) 0.4 %; Platelet Count 383 K/uL (130-400); RDW Coefficient of Variation 17.6 % (11.5-14.5); Red Blood Count 2.61 M/uL (4.2-5.4); Reticulocyte % 10.2 % (0.5-2.0); Reticulocytes # 0.27 10^6/uL (0.02-0.10); White Blood Count 8.54 K/uL (4.8-10.8)
[2018-11-23 02:51] LABS: Alanine Aminotransferase 30 U/L (12-78); Albumin Level 3.9 gm/dl (3.4-5.0); Aspartate Aminotransferase 38 U/L (15-37); Blood Urea Nitrogen 6 mg/dl (7-18); Calcium 8.7 mg/dl (8.5-10.1); Carbon Dioxide 25 mmol/L (21-32); Chloride 107 mmol/L (98-107); Creatinine Clr Calc Pharmacy 174.5 ml/min; Est GFR (African American) > 150.0; Est GFR (Non-African American) 139.3; Glucose 90 mg/dl (70-99); Lipase 222 U/L (73-393); Magnesium 1.7 mg/dl (1.8-2.4); Potassium 3.8 mmol/L (3.5-5.1); Pregnancy Test, Serum Negative (Negative); Sodium 140 mmol/L (136-145)
[2018-11-23 02:56] LABS: Alkaline Phosphatase 73 U/L (45-117); Bilirubin,Total 2.1 mg/dl (0.2-1); Total Protein 7.9 gm/dl (6.4-8.2); Troponin I 0.024 ng/ml (0-0.045)
--- NOTE | 2018-11-23 02:57 | Emergency Department Note ---
History of Present Illness General Chief complaint: Chest Pain History of Present Illness Maximum Pain Intensity: 7 This 18-year-old female with sickle cell presents to the ER complaining of sickle cell crisis Location: Generalized Quality: Painful Severity: Severe Duration: Today Timing: Today Context: Pain got much worse and patient came in Modifying factors: better with nothing; worse with activity Patient quit taking her hydroxyurea last month. She was concerned about the side effects. Patient denies fevers, productive cough, abdominal pain, vomiting, diarrhea. Patient does complain of chest pain, dyspnea, body aches and severe pain. 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 Beliefs That Will Affect Care: None marital status: Single Current Living Situation: Other Current Living Situation Comment: Apartment 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 Feels Safe at Home: Yes Smoking Status: Never smoker Hx Alcohol Use: No Hx Substance Use: No Review of Systems All systems reviewed & are unremarkable except as noted in HPI & below Physical Exam Vital Signs Vital Signs - 24 hr 11/23/18 01:53 11/23/18 01:58 11/23/18 02:00 Temperature 36.5 C Temperature Source Oral Sepsis Recent Fever Within 48 Hours No Sepsis New/Unexplained Change in Mental Status No Sepsis Action Taken by Nursing No Action Required Pulse Rate 64 68 67 Pulse Rate [Apical] Pulse Rate from SpO2 Sensor 64 66 64 Pulse Rhythm Regular Respiratory Rate 23 26 H 19 Respiratory Effort / Characteristics Non-Labored Respiratory Depth Normal Respiratory Pattern Regular Blood Pressure 128/78 128/78 Blood Pressure [Right Arm] Blood Pressure Mean 94 94 Blood Pressure Mean [Right Arm] Blood Pressure Position [Right Arm] Pulse Oximetry 99 98 98 Oxygen Delivery Method Room Air 11/23/18 02:30 11/23/18 03:00 11/23/18 03:30 Temperature Temperature Source Sepsis Recent Fever Within 48 Hours Sepsis New/Unexplained Change in Mental Status Sepsis Action Taken by Nursing Pulse Rate 67 58 L 59 L Pulse Rate [Apical] Pulse Rate from SpO2 Sensor 66 61 60 Pulse Rhythm Respiratory Rate 15 16 16 Respiratory Effort / Characteristics Respiratory Depth Respiratory Pattern Blood Pressure Blood Pressure [Right Arm] Blood Pressure Mean Blood Pressure Mean [Right Arm] Blood Pressure Position [Right Arm] Pulse Oximetry 97 94 97 Oxygen Delivery Method 11/23/18 03:43 Temperature Temperature Source Sepsis Recent Fever Within 48 Hours Sepsis New/Unexplained Change in Mental Status Sepsis Action Taken by Nursing Pulse Rate Pulse Rate [Apical] 68 Pulse Rate from SpO2 Sensor Pulse Rhythm Respiratory Rate 18 Respiratory Effort / Characteristics Non-Labored Respiratory Depth Normal Respiratory Pattern Regular Blood Pressure Blood Pressure [Right Arm] 102/33 L Blood Pressure Mean Blood Pressure Mean [Right Arm] 56 Blood Pressure Position [Right Arm] Left Lateral Pulse Oximetry 97 Oxygen Delivery Method Room Air VITALS: Vitals are noted on the nurse's note and reviewed by myself. Vital signs stable. GENERAL: -[place] female who appears in pain, in no acute distress, nondiaphoretic, well-developed well-nourished. SKIN: The skin was without rashes, erythema, edema, or bruising. There is no tenting of the skin. Capillary reflex less than 2 seconds. HEAD: Normocephalic atraumatic. EARS: External auditory canals clear, tympanic membranes pearly ulrich without erythema or effusion bilaterally. EYES: Pupils equal round and reactive to light and accommodation. Conjunctivae without injection, sclerae without icterus. Extraocular movements intact. NOSE: Patent, turbinates without inflammation or discharge. MOUTH: Mucous membranes moist. Pharynx without erythema or exudate. Uvula midline. Airway patent. Tongue does not deviate. NECK: Supple without nuchal rigidity. No lymphadenopathy. No thyromegaly. Cervical spine is nontender. No JVD. HEART: Regular rate and rhythm LUNGS: Clear to auscultation bilaterally without wheezes, rales or rhonchi. No retractions or accessory muscle use. ABDOMEN: Positive bowel sounds x 4. Normal tympanic percussion. Soft, nontender, without masses or organomegaly. Youngblood sign negative. No guarding or rebound tenderness. No CVA tenderness MUSCULOSKELETAL: No muscle atrophy, erythema, or edema noted. NEURO: Patient was alert and oriented to person place and time. Normal sensation to light and sharp touch. No focal neurological deficits. Course Administered Medications Hydromorphone HCl (Dilaudid) 0.5 mg IV Q15M PRN PRN Reason: Pain Stop: 12/07/18 01:53 Last Admin: 11/23/18 02:04 Dose: 0.5 mg Documented by: [id number] Discontinued Medications Sodium Chloride (Nss 1000ml) 1,000 mls @ 999 mls/hr IV .Q1H1M ONE Stop: 11/23/18 02:54 Last Infusion: 11/23/18 03:15 Dose: 0 mls/hr Documented by: [id number] Admin: 11/23/18 02:04 Dose: 999 mls/hr Documented by: [id number] Ondansetron HCl (Zofran) 4 mg IV NOW STA Stop: 11/23/18 01:55 Last Admin: 11/23/18 02:04 Dose: 4 mg Documented by: [id number] Medical Decision Making Medical Records Attestation: I reviewed the patient's medical records. Home Medications Current Medication List: was personally reviewed by me Laboratory Data Attestation: I reviewed the patient's lab results. Result diagrams: 11/23/18 02:19 11/23/18 02:19 Lab Results 11/23/18 11/23/18 11/23/18 Range/Units 02:19 02:19 02:19 WBC 8.54 (4.8-10.8) K/uL RBC 2.61 L (4.2-5.4) M/uL Hgb 8.7 L (12.0-16.0) g/dL Hct 24.7 L (37-47) % MCV 94.6 (80-100) fL MCH 33.3 (25-34) pg MCHC 35.2 (32-36) g/dL RDW Std Deviation 60.0 H (36.4-46.3) fL RDW Coeff of Nando 17.6 H (11.5-14.5) % Plt Count 383 (130-400) K/uL MPV 9.3 (7.4-10.4) fL Immature Gran % (Auto) 0.5 % Neut % (Auto) 45.9 % Lymph % (Auto) 39.7 % [place] % (Auto) 8.7 % Eos % (Auto) 4.7 % Baso % (Auto) 0.5 % Reticulocyte % (Auto) 10.2 H (0.5-2.0) % Immature Gran # (Auto) 0.04 H (0.00-0.02) K/uL Neut # (Auto) 3.93 (1.4-6.5) K/uL Lymph # (Auto) 3.39 (1.2-3.4) K/uL [place] # (Auto) 0.74 H (0.11-0.59) K/uL Eos # (Auto) 0.40 (0-0.5) K/uL Baso # (Auto) 0.04 (0-0.2) K/uL Reticulocyte # 0.27 H (0.02-0.10) 10^6/uL Absolute Nucleated RBC 0.03 H (0-0) K/uL Nucleated RBC % (auto) 0.4 % Sodium 140 (136-145) mmol/L Potassium 3.8 (3.5-5.1) mmol/L Chloride 107 (98-107) mmol/L Carbon Dioxide 25 (21-32) mmol/L Anion Gap 8.0 (3-11) BUN 6 L (7-18) mg/dl Creatinine 0.50 L (0.6-1.2) mg/dl Est Cr Clr Drug Dosing 174.5 ml/min Est GFR ( Amer) > 150.0 Est GFR (Non-Af Amer) 139.3 BUN/Creatinine Ratio 13.0 (10-20) Glucose 90 (70-99) mg/dl Calcium 8.7 (8.5-10.1) mg/dl Magnesium 1.7 L (1.8-2.4) mg/dl Total Bilirubin 2.1 H (0.2-1) mg/dl AST 38 H (15-37) U/L ALT 30 (12-78) U/L Alkaline Phosphatase 73 (45-117) U/L Troponin I 0.024 (0-0.045) ng/ml Total Protein 7.9 (6.4-8.2) gm/dl Albumin 3.9 (3.4-5.0) gm/dl Globulin 4.0 (2.5-4.0) gm/dl Albumin/Globulin Ratio 1.0 (0.9-2) Lipase 222 (73-393) U/L HCG, Qual Negative (Negative) Imaging Data Attestation: I personally reviewed and interpreted this imaging study as follows: MDM Narrative Prior records/ancillary studies reviewed and summarized above. Nursing notes reviewed. Additional history obtained from EMS. The patient's history was concerning for sickle cell crisis. Differential diagnosis: Etiologies such as sickle cell crisis, acute chest syndrome, PE, metabolic, infection, hypo/hyperglycemia, electrolyte abnormalities, cardiac sources, intracerebral event, toxicologic, neurologic, as well as others were entertained. Physical examination: As above. ER treatment provided: IV Lock IV fluids, Dilaudid, Zofran On reassessment the patient felt better. Diagnostics interpretation by me: ECG: Normal sinus, normal intervals, no acute ST-T wave changes. Impression normal sinus rhythm interpreted by myself Ordered for chest pain I think arrhythmia is unlikely. EKG shows normal sinus rhythm with no interval abnormalities such as QT prolongation or WPW. There are no findings to suggest Brugada syndrome. Cardiac monitoring in the emergency department reveals no tachycardic or bradycardic dysrhythmia. Hypertrophic cardiomyopathy was considered but there are no clear historical elements pointing toward this. EKG is not suggestive. The QRS voltage is not extremely large and there are no suggestive Q waves. The labs revealed stable H&H per chart review. Elevated retic count Imaging studies: Chest x-ray with no acute consolidation, pneumothorax or free air per my interpretation Consultation: A consultation was placed with the hospitalist. The case was discussed and diagnostics were reviewed. The patient was evaluated in the ER for further treatment. Exam and history seem consistent with sickle cell crisis. Patient was still moderate amount of pain. She had an elevated reticulocyte count. Medicine was consulted. Patient is agreeable to treatment plan of admission. By the evaluation outlined above emergent etiologies such as electrolyte abnormalities, cardiac sources, intracerebral event, toxologic, neurologic, abnormalities blood glucose, metabolic, as well as others were deemed relatively unlikely. The pt informed about the findings as listed above. All questions were answered and pleased with the treatment. Case reviewed with my attending The chart was completed utilizing [employer] Speech voice recognition software. Grammatical errors, random word insertions, pronoun errors, and incomplete sentences are an occassional consequence of this system due to software limitations, ambient noise, and hardware issues. Any formal questions or concerns about the content, text, or information contained within the body of this dictation should be directly addressed to the physician assistant statistician for clarification. Impression & Plan Sickle cell crisis Discharge Plan Visit Data Chief Complaint: Chest Pain ED Provider: Julissa Barton ED Midlevel Provider: Maria Dle Carmen Ford Discharge Problem: Sickle cell crisis Patient Disposition: Being Evaluated by Hospitalist Condition: Good Forms Stand Alone Forms: My [facility] [employer] Prescriptions Prescriptions: No Action ibuprofen 200 mg Tablet 200 mg PO Q6H PRN (Reason: Pain) RF: 0 cholecalciferol (vitamin D3) [Vitamin D3] 1,000 unit Capsule PO HS RF: 0 folic acid 1 mg Tablet 2 mg PO DAILY RF: 0 Referrals Referrals: PCP,NO [Primary Care Provider] -
--- NOTE | 2018-11-23 04:38 | History & Physical Report ---
Date of Service November 23, 2018 Assessment & Plan (1) Sickle cell crisis: This is a 18-year-old female with history of sickle cell anemia who presents with mid substernal chest pain x2 weeks. She states the pain is in the middle of her chest and it feels as if someone is stepping on her. She has been experiencing the pain for 2 weeks now, but it was worsening today as she was studying and so she called paramedics. She states that she was talking on the phone with the paramedics her speech was slurred and she felt her eyes rolling back into her head. She endorses a bilateral headache. She does get bilateral headaches from time to time that is associated with lightheadedness. She denies syncope or presyncope. She denies fevers or chills. She was recently admitted October 26 for similar symptoms, she was transfused 2 units of blood. She has not had any follow-up with her skewer up or PCP in the area since then due to scheduling conflicts. She has not restarted hydroxyurea. She is taking ibuprofen for her pain. Sickle cell crisis, chest pain -pt has h/o acute chest syndrome in May 2018 -- is normally followed by [place] hematology, and was previously on hydroxyurea but was stopped shortly before last hospitalization here Oct 26 due to concern for fevers/infection. Unfortunately pt has not been able to follow up with providers and remains off of hydroxyurea. Says her chest pain is "always there" since May. Also associated with intermittent bilateral headaches, lightheadedness and slurred speech. -labs and imaging reviewed -- cxr without evidence for new effusion, H&H 8.7/24.7, platelets wnl, mild reticulocytosis. Pt remains afebrile, euvolemic, normotensive, and not hypoxic. Plan: -good effect with 0.5mg iv dilaudid in ED - will continue 0.5mg q1h PRN. -IVF hydration with 1/2 NSS +20K -consented for blood products but no indication for transfusion at this time -would greatly benefit from close follow up with her skewer up to resume hydroxyurea as soon as possible to prevent further SCD associated pain syndromes Headache, slurred speech - resolved -pt c/o intermittent headaches associated with slurred speech and lightheadedness feeling, this did occur earlier today and will sometimes occur irrespective of her chest pain symptoms -pt with SCD have high risk of CVD, hence need for close f/u with hematology in [place]. -thankfully asymptomatic from a neurological standpoint at this time -- discussed possibility of migraine mccallum as possible etiology, to be further evaluated at her PCP f/u visits. -follow FEN/GI: 1/2 NSS + 20 meqK DVT ppx: lovenox 40 q24h CODE STATUS: FULL DISPO: med/surg (2) Sickle cell anemia: History of Present Illness Chief Complaint: Progressively worsening chest pain for 2 weeks, headache, episode of slurred speech Primary Care Provider: NO PCP This is a 18-year-old female with history of sickle cell anemia who presents with mid substernal chest pain x2 weeks. She states the pain is in the middle of her chest and it feels as if someone is stepping on her. She has been experiencing the pain for 2 weeks now, but it was worsening today as she was studying and so she called paramedics. She states that she was talking on the phone with the paramedics her speech was slurred and she felt her eyes rolling back into her head. She endorses a bilateral headache. She does get bilateral headaches from time to time that is associated with lightheadedness. She denies syncope or presyncope. She denies fevers or chills. She was recently admitted October 26 for similar symptoms, she was transfused 2 units of blood. She has not had any follow-up with her skewer up or PCP in the area since then due to scheduling conflicts. She has not restarted hydroxyurea. She is taking ibuprofen for her pain. ED course: Dilaudid, fluids. Chest x-ray is negative. Allergies Allergy/AdvReac Type Severity Reaction Status Date / Time No Known Allergies Allergy Verified 11/23/18 02:24 Home Medications Home Medications Medication Instructions Recorded Confirmed Type cholecalciferol (vitamin D3) 0 unit PO HS 10/26/18 11/23/18 History [Vitamin D3] ibuprofen 200 mg PO Q6H PRN 10/26/18 11/23/18 History folic acid 2 mg PO DAILY 11/23/18 11/23/18 History Past Med/Surg History Medical History Sickle cell anemia (Chronic) Pneumonia Family History Other Family history non-contributory Social History Preferred Language: French Communication Ability: Effective Gi Technician Required: No Beliefs That Will Affect Care: None marital status: Single Current Living Situation: Other Current Living Situation Comment: With roommates in an apartment 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 Other Information That Helps Us Care for You: No Feels Safe at Home: Yes Safety Concerns: Feels Safe At This Time Smoking Status: Never smoker Do You Dip or Chew Tobacco: No ; Second Hand Exposure: No ; Tobacco Cessation Education Requested by Patient: No Hx Alcohol Use: No Hx Substance Use: No Review of Systems Review of Systems: All systems reviewed & are unremarkable except as noted in HPI & below Physical Exam Physical Exam: Vitals noted and within normal limits GENERAL: Awake, alert to person, place, and time, nontoxic-appearing, in no distress. HENT: Normocephalic, atraumatic. Mucus membranes appear dry. EYES: Normal conjunctiva. Sclera non-icteric. EOMI. PERRL. NECK: Supple. Full range of motion. RESPIRATORY: Clear to auscultation. Normal work of breathing. CARDIAC: Regular rate, normal rhythm. Extremities warm and well perfused, 2+ radial pulses bilaterally; 2+ posterior tibialis pulses bilaterally. ABDOMEN: Soft, non-distended. Bowel sounds are normal. LOWER EXTREMITIES: Inspection of calves reveal equal size bilaterally. They are non-tender. No edema. No discoloration. NEURO: No gross focal motor deficits noted. Sensation in tact. CN II-XII in tact. Moves all four extremities equally. Normal cerebellar testing. SKIN: Rash not present. Significant lesions not present. PSYCH: Appropriate mood and affect. Cooperative. Exam as done by Eleonora Coleman MD, Pain[employer] Gr[employer] [place]. Results & Data Vital Signs (Past 12 Hours) Vital Signs Temp Pulse Pulse Resp BP BP Pulse Ox 11/23/18 03:43 68 18 102/33 L 97 11/23/18 03:30 59 L 16 97 11/23/18 03:00 58 L 16 94 11/23/18 02:30 67 15 97 11/23/18 02:00 67 19 98 11/23/18 01:58 36.5 C 68 26 H 128/78 98 11/23/18 01:53 64 23 128/78 99 Laboratory Results 11/23/18 11/23/18 11/23/18 Range/Units 02:19 02:19 02:19 WBC 8.54 (4.8-10.8) K/uL RBC 2.61 L (4.2-5.4) M/uL Hgb 8.7 L (12.0-16.0) g/dL Hct 24.7 L (37-47) % MCV 94.6 (80-100) fL MCH 33.3 (25-34) pg MCHC 35.2 (32-36) g/dL RDW Std Deviation 60.0 H (36.4-46.3) fL RDW Coeff of Nando 17.6 H (11.5-14.5) % Plt Count 383 (130-400) K/uL MPV 9.3 (7.4-10.4) fL Immature Gran % (Auto) 0.5 % Neut % (Auto) 45.9 % Lymph % (Auto) 39.7 % [place] % (Auto) 8.7 % Eos % (Auto) 4.7 % Baso % (Auto) 0.5 % Reticulocyte % (Auto) 10.2 H (0.5-2.0) % Immature Gran # (Auto) 0.04 H (0.00-0.02) K/uL Neut # (Auto) 3.93 (1.4-6.5) K/uL Lymph # (Auto) 3.39 (1.2-3.4) K/uL [place] # (Auto) 0.74 H (0.11-0.59) K/uL Eos # (Auto) 0.40 (0-0.5) K/uL Baso # (Auto) 0.04 (0-0.2) K/uL Reticulocyte # 0.27 H (0.02-0.10) 10^6/uL Absolute Nucleated RBC 0.03 H (0-0) K/uL Nucleated RBC % (auto) 0.4 % Sodium 140 (136-145) mmol/L Potassium 3.8 (3.5-5.1) mmol/L Chloride 107 (98-107) mmol/L Carbon Dioxide 25 (21-32) mmol/L Anion Gap 8.0 (3-11) BUN 6 L (7-18) mg/dl Creatinine 0.50 L (0.6-1.2) mg/dl Est Cr Clr Drug Dosing 174.5 ml/min Est GFR ( Amer) > 150.0 Est GFR (Non-Af Amer) 139.3 BUN/Creatinine Ratio 13.0 (10-20) Glucose 90 (70-99) mg/dl Calcium 8.7 (8.5-10.1) mg/dl Magnesium 1.7 L (1.8-2.4) mg/dl Total Bilirubin 2.1 H (0.2-1) mg/dl AST 38 H (15-37) U/L ALT 30 (12-78) U/L Alkaline Phosphatase 73 (45-117) U/L Troponin I 0.024 (0-0.045) ng/ml Total Protein 7.9 (6.4-8.2) gm/dl Albumin 3.9 (3.4-5.0) gm/dl Globulin 4.0 (2.5-4.0) gm/dl Albumin/Globulin Ratio 1.0 (0.9-2) Lipase 222 (73-393) U/L HCG, Qual Negative (Negative) Supervising Physician Co-Signing Physician Notes Attending addendum: I have physically seen this patient, have supervised the medical residents activities, and agree with the H&P unless as otherwise noted. Assessment and Plan: Sickle cell crisis/recurrent mid substernal chest pain- Most recent hospitalization from 10/26-10/27/2018. History of acute chest syndrome 05/2018. Continue IV fluid rehydration due to signs of significant dehydration. Pain control with IV Dilaudid. Resolved headache without focal deficit. Order CT of head without contrast. Discussed by hematology at last hospitalization resumption of hydroxyurea, but she has not been able to follow-up with [facility] hematology in the interim. We will consult hematology to see patient here. Continue folic acid and vitamin D. Remainder of orders and notations as noted. PG Care Time/CCT Total # of Minutes Spent Total Time Spent with Patient: Total time spent is greater than 50% in coordination of care (as documented) at patient's floor/unit and/or counseling patient: Resident Activity Tracking Resident Involvement: Resident Care Provided Care Provided: Adult Hospital Medicine
[2018-11-23] MEDS ORDERED: POLYETHYLENE (MIRALAX) 17 GM PACK PO PRN (04:55)
[2018-11-23] MEDS ORDERED: ACETAMINOPHEN 325 MG TAB PO PRN (04:55)
[2018-11-23] MEDS ORDERED: MAGNESIUM HYDROXIDE SUSP 30 ML UDC PO PRN (04:55)
[2018-11-23] MEDS ORDERED: ONDANSETRON INJ 2 MG/ML 2 ML VIAL IV PRN (04:55)
[2018-11-23] MEDS ORDERED: ALUMINUM/MAGNESIUM SUSP 30 ML UDC PO PRN (04:55)
[2018-11-23] MEDS: SODIUM CHLOR 0.45% + 20MEQ KCL 20 MEQ/1,000 ML BAG IV SCH ×2 (05:14→16:29)
--- NOTE | 2018-11-23 07:07 | XRay Report ---
XR chest 1V portable CLINICAL HISTORY: 18 years-old Female presenting with Chest Pain. TECHNIQUE: Portable upright AP view of the chest was obtained. COMPARISON: 10/26/2018. FINDINGS: Cardiopericardial silhouette remains mildly enlarged. No focal opacity. No large effusion or pneumoth orax. Osseous structures normal. Upper abdomen normal. IMPRESSION: 1. Persistent mild enlargement of the cardiopericardial silhouette. This could represent cardiomegal y or pericardial effusion. No other convincing evidence of acute cardiopulmonary disease. Electronically signed by: Juan Alberto Olmedo M.D. 11/23/2018 7:06 AM
[2018-11-23] MEDS: FOLIC ACID 1 MG TAB PO SCH (07:56)
[2018-11-23] MEDS: ENOXAPARIN INJ 40 MG/0.4 ML SYR SQ SCH (07:56)
--- NOTE | 2018-11-23 08:21 | CT Scan Report ---
CT head/brain wo con CLINICAL HISTORY: 18 years-old Female presenting with sickle cell crisis, intermittent headaches. TECHNIQUE: Multidetector CT imaging of the head was performed without the use of intravenous contrast . IV contrast: None. One or more dose lowering techniques were used consistent with the principles of ALARA (as low as reasonably achievable), including automatic exposure control, mA or kV adjustment t o individual patient size, and/or use of iterative reconstruction. COMPARISON: None. CT DOSE (mGy.cm): The estimated cumulative dose is 537.48 mGy.cm. FINDINGS: Web Design Intern topogram: Unremarkable. Ventricles and sulci normal in size. No hemorrhage. Brain parenchyma normal in appearance with preser mack ulrich-white differentiation. No acute territorial infarct. No mass effect or midline shift. No ext ra-axial fluid collection. Paranasal sinuses and mastoid air cells clear. Calvarium intact. IMPRESSION: 1. No acute intracranial abnormality. Electronically signed by: Juan Alberto Olmedo M.D. 11/23/2018 8:20 AM
[2018-11-23] MEDS ORDERED: MAGNESIUM HYDROXIDE SUSP 30 ML UDC PO ONE (10:43)
[2018-11-23] MEDS ORDERED: MAGNESIUM OXIDE 400 MG TAB PO ONE (11:32)
--- NOTE | 2018-11-23 15:08 | Family Medicine Progress Note ---
Date of Service November 23, 2018 Assessment & Plan (1) Sickle cell crisis: "James" is a 18 yo female with a PMHx of sickle cell anemia admitted for evaluation of chest pain with concern for sickle cell crisis/acute chest syndrome with associated headache and slurred speech. Sickle cell crisis, chest pain -history of Acute Chest syndrome in May 2018 -most recently hospitalized at [facility] 10/26/18-10/27/18 for similar symptoms -CXR on admission: Persistent mild enlargement of the cardiopericardial silhouette. This could represent cardiomegaly or pericardial effusion. No other convincing evidence of acute cardiopulmonary disease. -Hgb 8.7, Hct 24.7 on admission; data retrieved from [facility] EMR showed hgb of 7.6 and hct of 20.5 from 09/23/2018 -IV Dilaudid 0.5mg q1h prn for pain control; patient given 1 dose on arrival to ED; no further doses required -continue maintenance IVF (02/18 NSS +20meq K) -continue folic acid and Vit D supplements - patient follows with [facility] (Dr. Kenn Madrigal) in [place]; she had been taking hydroxyurea 500mg BID but this was held prior to her October hospitalization when she was ill with an infection. The plan was to restart the hydroxyurea and titrate to a dose of 2000mg, daily, however, James has not yet followed-up with Dr. Madrigal and thus has been totally off the hydroxyurea since early October -although patient does have follow up visit with Dr. Madrigal scheduled for 12/19 11/05, consult placed with hematology (Dr. Mccoy) as patient would benefit from restarting hydroxyurea before leaving hospital Headache, slurred speech - resolved -patient has had intermittent headaches lately and recurrent episode of slurred speech on evening of admission -non-contrast head CT scan in ED on 11/23/18 showed no acute intracranial abnormality -patient recounts one prior episode of slurred speech for which she was evaluated at [facility] ED in 04/2018. Brain MRI with and without contrast, MRA of head and MRA of neck were performed on 04/24/2018 for evaluation of acute infarct in light of increased risk of CVA in sickle cell patients. Impression of the above studies was abstracted from [facility] EMR was as follows: IMPRESSION: 1. No acute infarct. 2. No flow-limiting stenosis, dissection or aneurysm on, MR angiography head and MR angiography neck. 3. 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 No flow-limiting stenosis on adjacent petrous and cavernous ICA. 4. Expansile lesion involving left parietal bone likely additional focus of fibrous dysplasia in a background of generalized mild calvarial hypertrophy due to known sickle cell anemia. -Given normal CT scan from 11/23/18 and negative work-up at [facility] earlier this year, we will hold off on further imaging at this time. FEN/GI: / NSS + 20 meqK DVT ppx: lovenox 40 q24h CODE STATUS: FULL DISPO: med/surg floor (2) Sickle cell anemia: Supervising Physician Co-Signing Physician Notes Patient seen and examined with PGY-1 Dr. Tavarez and PGY-3 Dr. Mendenhall. Agree with history, exam findings, assessment and plan of care as outlined by Dr. Tavarez. In brief, James is a 18 year old female with hx of sickle cell disease admitted with concerns for chest pain and an episode of slurred speech. The chest pain is now improved after IVFs and 1 dose of dilaudid. She has not had another episodes of slurred speech or other new neurologic symptoms. VSS. Not requiring supplemental O2. 1. sickle cell pain. Improved. Continue IVFs. 2. slurred speech. CT head normal. Prior MRI/MRA head and neck done in April 2018 [place] relatively unremarkable. Do not feel that we need to repeat MRI/MRA with no new neurologic symptoms. 3. sickle cell. Has been off hydroxyurea. Would likely benefit from being on the medication--consult heme/onc to weigh in on how to start this back. Seems that it would be safe to restart hydroxyurea, which she is willing to take, in the hospital since she olivera not have significant myelosuppression, BYRON or signs of infection. Dispo: discharge home tomorrow if pain continues to be well controlled and no new neurologic symptoms. Subjective Patient is asleep in bed on exam but arousable. She is comfortable and denies any pain at present. She is eating and drink well. Urinating and stooling normally. She explains that she is in her first semester at [employer] (she transferred here from [employer]). She was hospitalized for her sickle cell while in [place] 5-6 times in the past 2 years. At one point, she was hospitalized at [facility]. She is a [place] - she moved to [place] when she started as a student at [employer]. While living in [place], she rarely was hospitalized for her sickle cell disease (she clarifies that this was due to limited healthcare access). Review of Systems Cardiovascular: no chest pain Physical Exam Constitutional: WD/WN, vitals as above cooperative and comfortable Eyes: + anicteric sclerae ENMT: external ear and nose normal, oropharynx normal Neck: trachea midline Respiratory: normal respiratory effort, lungs clear to auscultation Auscultation: no crackles, no rales and no wheezes Cardiovascular: RRR, no murmur, no edema Heart Sounds: normal S1 and normal S2 Chest (Breasts): Additional Comments: tenderness reported with palpation of sternum Skin: no rashes, warm and dry normal turgor Neurologic: awake Psychiatric: A+Ox3, euthymic affect Apperance: appeared stated age Speech: normal rate/rhythm/volume of speech Results & Data Vital Signs (Past 12 Hours) Vital Signs Temp Pulse Pulse Pulse Resp BP BP 11/23/18 12:16 36.5 C 62 15 117/67 11/23/18 06:35 36.5 C 54 L 18 92/52 L 11/23/18 05:27 36.5 C 56 L 18 92/56 L 11/23/18 04:30 58 L 13 89/48 L 11/23/18 04:00 61 14 95/54 L 11/23/18 03:44 64 18 102/33 L 11/23/18 03:43 68 18 102/33 L 11/23/18 03:30 59 L 16 11/23/18 03:00 58 L 16 Pulse Ox 11/23/18 12:16 97 11/23/18 06:35 96 11/23/18 05:27 96 11/23/18 04:30 100 11/23/18 04:00 97 11/23/18 03:44 98 11/23/18 03:43 97 11/23/18 03:30 97 11/23/18 03:00 94 Laboratory Results 11/23/18 11/23/18 11/23/18 Range/Units 02:19 02:19 02:19 WBC 8.54 (4.8-10.8) K/uL RBC 2.61 L (4.2-5.4) M/uL Hgb 8.7 L (12.0-16.0) g/dL Hct 24.7 L (37-47) % MCV 94.6 (80-100) fL MCH 33.3 (25-34) pg MCHC 35.2 (32-36) g/dL RDW Std Deviation 60.0 H (36.4-46.3) fL RDW Coeff of Nando 17.6 H (11.5-14.5) % Plt Count 383 (130-400) K/uL MPV 9.3 (7.4-10.4) fL Immature Gran % (Auto) 0.5 % Neut % (Auto) 45.9 % Lymph % (Auto) 39.7 % [place] % (Auto) 8.7 % Eos % (Auto) 4.7 % Baso % (Auto) 0.5 % Reticulocyte % (Auto) 10.2 H (0.5-2.0) % Immature Gran # (Auto) 0.04 H (0.00-0.02) K/uL Neut # (Auto) 3.93 (1.4-6.5) K/uL Lymph # (Auto) 3.39 (1.2-3.4) K/uL [place] # (Auto) 0.74 H (0.11-0.59) K/uL Eos # (Auto) 0.40 (0-0.5) K/uL Baso # (Auto) 0.04 (0-0.2) K/uL Reticulocyte # 0.27 H (0.02-0.10) 10^6/uL Absolute Nucleated RBC 0.03 H (0-0) K/uL Nucleated RBC % (auto) 0.4 % Sodium 140 (136-145) mmol/L Potassium 3.8 (3.5-5.1) mmol/L Chloride 107 (98-107) mmol/L Carbon Dioxide 25 (21-32) mmol/L Anion Gap 8.0 (3-11) BUN 6 L (7-18) mg/dl Creatinine 0.50 L (0.6-1.2) mg/dl Est Cr Clr Drug Dosing 174.5 ml/min Est GFR ( Amer) > 150.0 Est GFR (Non-Af Amer) 139.3 BUN/Creatinine Ratio 13.0 (10-20) Glucose 90 (70-99) mg/dl Calcium 8.7 (8.5-10.1) mg/dl Magnesium 1.7 L (1.8-2.4) mg/dl Total Bilirubin 2.1 H (0.2-1) mg/dl AST 38 H (15-37) U/L ALT 30 (12-78) U/L Alkaline Phosphatase 73 (45-117) U/L Troponin I 0.024 (0-0.045) ng/ml Total Protein 7.9 (6.4-8.2) gm/dl Albumin 3.9 (3.4-5.0) gm/dl Globulin 4.0 (2.5-4.0) gm/dl Albumin/Globulin Ratio 1.0 (0.9-2) Lipase 222 (73-393) U/L HCG, Qual Negative (Negative) Diagnostic Findings CT head/brain wo con CLINICAL HISTORY: 18 years-old Female presenting with sickle cell crisis, intermittent headaches. TECHNIQUE: Multidetector CT imaging of the head was performed without the use of intravenous contrast. IV contrast: None. One or more dose lowering techniques were used consistent with the principles of ALARA (as low as reasonably achievable), including automatic exposure control, mA or kV adjustment to indivi dual patient size, and/or use of iterative reconstruction. COMPARISON: None. CT DOSE (mGy.cm): The estimated cumulative dose is 537.48 mGy.cm. FINDINGS: Property Site Manager topogram: Unremarkable. Ventricles and sulci normal in size. No hemorrhage. Brain parenchyma normal in appearance with preserved ulrich-white differentiation. No acute territorial infarct. No mass effect or midline shift. No extra-axial fluid collection. Paranasal sinuses and mastoid air cells clear. Calvarium intact. IMPRESSION: 1. No acute intracranial abnormality. Electronically signed by: Juan Alberto Olmedo M.D. 11/23/2018 8:20 AM XR chest 1V portable CLINICAL HISTORY: 18 years-old Female presenting with Chest Pain. TECHNIQUE: Portable upright AP view of the chest was obtained. COMPARISON: 10/26/2018. FINDINGS: Cardiopericardial silhouette remains mildly enlarged. No focal opacity. No large effusion or pneumothorax. Osseous structures normal. Upper abdomen normal. IMPRESSION: 1. Persistent mild enlargement of the cardiopericardial silhouette. This could represent cardiomegaly or pericardial effusion. No other convincing evidence of acute cardiopulmonary disease. Electronically signed by: Juan Alberto Olmedo M.D. 11/23/2018 7:06 AM PG Care Time/CCT Total # of Minutes Spent Total Time Spent with Patient: Total time spent is greater than 50% in coordination of care (as documented) at patient's floor/unit and/or counseling patient: Resident Activity Tracking Resident Involvement: Resident Care Provided Care Provided: Adult Hospital Medicine
[2018-11-23] MEDS: HYDROmorphone INJ 0.5 MG/0.5 ML SYR IV PRN (23:34)
[2018-11-24] MEDS: SODIUM CHLOR 0.45% + 20MEQ KCL 20 MEQ/1,000 ML BAG IV SCH (02:08)
[2018-11-24] MEDS ORDERED: HYDROXYUREA 500 MG CAP PO SCH (09:00)
[2018-11-24] MEDS: HYDROmorphone INJ 0.5 MG/0.5 ML SYR IV PRN ×3 (09:51→16:25)
--- NOTE | 2018-11-24 10:42 | Family Medicine Progress Note ---
Date of Service November 24, 2018 Assessment & Plan (1) Sickle cell crisis: "James" is a 18 yo female with a PMHx of sickle cell anemia admitted for evaluation of chest pain with concern for sickle cell crisis/acute chest syndrome with associated headache and slurred speech. Sickle cell crisis, chest pain -history of Acute Chest syndrome in May 2018 -most recently hospitalized at [facility] 10/26/18-10/27/18 for similar symptoms -CXR on admission: Persistent mild enlargement of the cardiopericardial silhouette. This could represent cardiomegaly or pericardial effusion. No other convincing evidence of acute cardiopulmonary disease. -IV Dilaudid 0.5mg q1h prn for pain control; patient given 1 dose on arrival to ED; no further doses required -continue maintenance IVF (1/2 NSS +20meq K) -continue folic acid and Vit D supplements Headache, slurred speech - recurrent -patient experienced recurrence of neurologic sequelae witnessed by nurses and hospital care team at 10am today 11/24 -Non-contrast brain MRI ordered to assess for ischemia: Impression: 1. No acute intracranial abnormality. 2. Enlargement of the lesser wings of the sphenoid bone and thickening of the left parietal bone which likely represents skeletal manifestations of the patient's known sickle cell disease. This remains unchanged. -non-contrast head CT scan in ED on 11/23/18 showed no acute intracranial abnormality -patient recounts one prior episode of slurred speech for which she was evaluated at [facility] [place] [facility] in 04/2018. Brain MRI with and without contrast, MRA of head and MRA of neck were performed on 04/24/2018 for evaluation of acute infarct in light of increased risk of CVA in sickle cell patients. Impression of the above studies was abstracted from [facility] EMR was as follows: IMPRESSION: 1. No acute infarct. 2. No flow-limiting stenosis, dissection or aneurysm on, MR angiography head and MR angiography neck. 3. 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 No flow-limiting stenosis on adjacent petrous and cavernous ICA. 4. Expansile lesion involving left parietal bone likely additional focus of fibrous dysplasia in a background of generalized mild calvarial hypertrophy due to known sickle cell anemia. Sickle cell anemia -Hgb 8.7, Hct 24.7 on admission; data retrieved from [facility] EMR showed hgb of 7.6 and hct of 20.5 from 09/23/2018 - patient follows with [facility] (Dr. Kenn Madrigal) in [place]; she had been taking hydroxyurea 500mg BID but this was held prior to her October hospitalization when she was ill with an infection. The plan was to restart the hydroxyurea and titrate to a dose of 2000mg, daily, however, James has not yet followed-up with Dr. Madrigal and thus has been totally off the hydroxyurea since early October -patient does have follow up visit with Dr. Madrigal scheduled for 01/15/19 -consult hematology, appreciate recs -Dr. Mccoy (heme) restarted patient's hydroxyurea, 500mg, qAM today 11/24 FEN/GI: 1/ NSS + 20 meqK DVT ppx: lovenox 40 q24h CODE STATUS: FULL DISPO: med/surg floor (2) Sickle cell anemia: Subjective No acute events overnight. Hospitalist team was paged to bedside by nursing around 10:00am when patient had recurrence of neurologic symptoms (ie slurred speech, head pain). She was assessed at bedside and non-contrast MRI of brain was ordered STAT. Before being taken to MRI, patient only only able to communicate with care team by hand signals. She was given 0.5mg dilaudid before MRI - when asked if this helped her pain she made a hand signal commonly associated with the teram "somewhat." She was offered a second dose before MRI but she declined with a negative hand signal. Physical Exam Constitutional: WD/WN, vitals as above healthy appearing and comfortable Eyes: + anicteric sclerae ENMT: external ear and nose normal, oropharynx normal Neck: trachea midline Respiratory: normal respiratory effort, lungs clear to auscultation Auscultation: no crackles, no rales and no wheezes Cardiovascular: RRR, no murmur, no edema Heart Sounds: normal S1 and normal S2 Extremities: no pedal edema Chest (Breasts): Additional Comments: pain reported with palpation of sternum Gastrointestinal (Abdomen): normal bowel sounds, soft, nontender, no hepatosplenomegaly Skin: no rashes, warm and dry normal turgor Neurologic: awake Speech / Cognition: + abnormal speech Psychiatric: A+Ox3, euthymic affect Apperance: appeared stated age Results & Data Vital Signs (Past 12 Hours) Vital Signs Temp Pulse Resp BP Pulse Ox 11/24/18 07:42 36.6 C 62 18 102/62 97 11/23/18 23:37 36.7 C 61 20 105/62 97 Laboratory Results 11/24/18 Range/Units 09:45 POC Glucose 101 H (70-99) PG Care Time/CCT Total # of Minutes Spent Total Time Spent with Patient: Total time spent is greater than 50% in coordination of care (as documented) at patient's floor/unit and/or counseling patient: Resident Activity Tracking Resident Involvement: Resident Care Provided Care Provided: Adult Hospital Medicine
--- NOTE | 2018-11-24 12:24 | Consultation Report ---
DATE OF CONSULTATION: 11/24/2018 HEMATOLOGY CONSULTATION REASON FOR CONSULTATION: Sickle cell crisis. HISTORY OF PRESENT ILLNESS: James is a very pleasant 18-year-old [place] female who presents to [facility] again with symptoms consistent with sickle cell crisis. The patient was admitted to our facility a couple of weeks prior with similar symptoms. For the past 2 weeks, she describes pain in the middle of her chest. She has also had some neurologic symptomatology, specifically slurred speech and her eyes rolling back in her head. She also admits to bifrontal headaches from time to time with associated lightheadedness. She denies any syncope or presyncope. Again, she was admitted in early October with similar symptomatologies and was transfused 2 units of blood. I actually saw this young lady during that admission and assumed that she would be following up with her laser/electro optics technician at [facility]. At that time, she had not been maintained on hydroxyurea. She now informs me her appointment in [place] is scheduled for early December. Again, she denies fevers, chills or sweats. She has been treated with IV hydration and opioids since admission. Her hemoglobin is once again down in the 7 g/dL range with a profound reticulocytosis. We will proceed and initiate hydroxyurea. PAST MEDICAL HISTORY: Significant for sickle cell anemia and had prior history of pneumonia and acute chest syndrome. PAST SURGICAL HISTORY: Negative. MEDICATIONS: Prior to admission, Jobelyn 1 tablet p.o. at bedtime, cholecalciferol daily, folic acid daily, ibuprofen 200 mg p.o. q.6 hours p.r.n. ALLERGIES: No known drug allergies. FAMILY HISTORY: Positive for sickle cell anemia. 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 Single. Nonsmoker, nondrinker, non-illicit drug user. REVIEW OF SYSTEMS: CONSTITUTIONAL: Negative for fevers, chills or night sweats. Most prominent for substernal chest pain and fatigue. Negative for anorexia or losing weight. SKIN: No rashes or lesions. No history of dermatoses. HEENT: Positive for bifrontal headache. Positive for lightheadedness. No dizziness. No acute visual or hearing deficits. No sinus symptoms, sore throat or dysphagia. LYMPH NODES: No history of lymphoproliferative disease. CARDIAC: Negative for coronary artery disease, no angina or palpitations. PULMONARY: Negative for COPD. Negative for shortness of breath, dyspnea or orthopnea. No cough or hemoptysis. GASTROINTESTINAL: Negative for abdominal pain, nausea, vomiting, diarrhea or constipation, hematochezia, or melena stools. GENITOURINARY: No hematuria, dysuria, or urinary incontinence. PSYCHIATRIC: Negative for anxiety, depression or psychoses. ENDOCRINE: Negative for diabetes or thyroid disease. NEUROLOGIC: Negative for seizure, strokes, or migraine headache. HEMATOLOGIC: Positive for low hemoglobin. PHYSICAL EXAMINATION: GENERAL: A very pleasant, well-nourished and developed 18-year-old -[place] female in no acute distress. VITAL SIGNS: Temperature 36.6, pulse 62, respiratory rate 18, blood pressure 102/62. SKIN: Without rash or lesion. No petechiae or ecchymosis noted. HEENT: Atraumatic, normocephalic. Eyes: PERRLA, EOMI. Sclerae nonicteric. No conjunctival injection. Nares are patent without rhinorrhea or discharge. Throat is clear. Tongue is midline. Mucous membranes are moist. NECK: Supple without JVD or thyromegaly. LYMPH NODES: No cervical, supraclavicular, axillary or inguinal palpable nodes. HEART: Regular rate and rhythm. No clicks, rubs, murmurs or gallops. LUNGS: Clear to auscultation bilaterally. ABDOMEN: Soft, nontender, nondistended, without palpable hepatosplenomegaly. EXTREMITIES: No calf tenderness or swelling. Pulses and strength are equal in all 4 quadrants. No clubbing, cyanosis or edema otherwise. NEUROLOGICAL: She is awake, alert and oriented x3. Cranial nerves II-XII are intact. LABORATORY DATA: WBC count 8540, hemoglobin 8.7, hematocrit 24.7, platelet count 383,000. Reticulocyte percentage 10.2. Sodium 140, potassium 3.8, chloride 107, carbon dioxide 25, BUN 6, creatinine 0.5, magnesium 1.7, total bilirubin 2.1. IMPRESSION: 1. Sickle cell crisis. 2. Bifrontal headache. 3. Slurred speech. 4. Subacute-onset chest pain. PLAN: It is my pleasure to visit with James once again. Again, she was admitted to our facility about a month prior with similar symptomatology. At that time, I had suggested that she needed to be placed on hydroxyurea and assumed she was following up with her laser/electro optics technician at the [facility], which did not take place. Therefore, I will engage and start her on hydroxyurea 500 mg p.o. daily. According to James, she will follow up with hematology at [place] in early December. They can titrate her doses at that time. For now, would provide adequate IV hydration, perhaps oxygen therapy and transfusion of 2 units packed RBCs would be helpful. Perhaps even a small prescription for low-dose opioids, hydrocodone preparation versus Ultram, provide her about 2-3 weeks' supply upon discharge. I would be more than happy to continue following her while she is on the campus here at [facility]. Her main issue at present is pain control. These patients sometimes require copious amounts of opioids. Again, we will have my staff arrange for outpatient followup for James. Thank you very much for allowing me to participate in her care.
--- NOTE | 2018-11-24 12:42 | Magnetic Resonance Report ---
Brain MRI WITHOUT CONTRAST HISTORY: slurred speech, hx sickle cell TECHNIQUE: Multiplanar multisequence MRI of the brain was performed without the use of contrast. COMPARISON STUDY: Head CT 11/23/2018. FINDINGS: There are no areas of restricted diffusion to suggest acute infarction. The midline structu res are intact. The paranasal sinuses are clear. The mastoid air cells are clear. The ventricles and sulci are within normal limits for age. There is no mass, hematoma, midline shift. The major vascular flow-voids at the skull base are well maintained. Enlargement of the lesser wings of the sphenoid rell ne which appears to be secondary to expansion of the medullary cavity. There is also focal thickening of the left parietal bone with the cortex demonstrating a hair-on-end appearance on the recent CT ex amination. Therefore, these findings are likely represent skeletal manifestations of the patient's kn own sickle cell disease. IMPRESSION: 1. No acute intracranial abnormality. 2. Enlargement of the lesser wings of the sphenoid bone and thickening of the left parietal bone whic h likely represents skeletal manifestations of the patient's known sickle cell disease. This remains unchanged. Electronically signed by: Cortes Fletcher M.D. 11/24/2018 12:41 PM
[2018-11-24] MEDS: FOLIC ACID 1 MG TAB PO SCH (12:55)
[2018-11-24] MEDS: ENOXAPARIN INJ 40 MG/0.4 ML SYR SQ SCH (12:56)
--- NOTE | 2018-11-24 17:16 | Discharge Summary ---
Date of Service November 24, 2018 Admission HPI Per Admitting Provider This is a 18-year-old female with history of sickle cell anemia who presents with mid substernal chest pain x2 weeks. She states the pain is in the middle of her chest and it feels as if someone is stepping on her. She has been experiencing the pain for 2 weeks now, but it was worsening today as she was studying and so she called paramedics. She states that she was talking on the phone with the paramedics her speech was slurred and she felt her eyes rolling back into her head. She endorses a bilateral headache. She does get bilateral headaches from time to time that is associated with lightheadedness. She denies syncope or presyncope. She denies fevers or chills. She was recently admitted October 26 for similar symptoms, she was transfused 2 units of blood. She has not had any follow-up with her pulp roller or PCP in the area since then due to scheduling conflicts. She has not restarted hydroxyurea. She is taking ibuprofen for her pain. ED course: Dilaudid, fluids. Chest x-ray is negative. Admission Exam Per Admitting Provider Vitals noted and within normal limits GENERAL: Awake, alert to person, place, and time, nontoxic-appearing, in no distress. HENT: Normocephalic, atraumatic. Mucus membranes appear dry. EYES: Normal conjunctiva. Sclera non-icteric. EOMI. PERRL. NECK: Supple. Full range of motion. RESPIRATORY: Clear to auscultation. Normal work of breathing. CARDIAC: Regular rate, normal rhythm. Extremities warm and well perfused, 2+ radial pulses bilaterally; 2+ posterior tibialis pulses bilaterally. ABDOMEN: Soft, non-distended. Bowel sounds are normal. LOWER EXTREMITIES: Inspection of calves reveal equal size bilaterally. They are non-tender. No edema. No discoloration. NEURO: No gross focal motor deficits noted. Sensation in tact. CN II-XII in tact. Moves all four extremities equally. Normal cerebellar testing. SKIN: Rash not present. Significant lesions not present. PSYCH: Appropriate mood and affect. Cooperative. Principal Diagnosis Sickle Cell Crisis Discharge Exam Constitutional WD/WN, vitals as above healthy appearing and comfortable Eyes + anicteric sclerae ENMT external ear and nose normal, oropharynx normal Neck trachea midline Respiratory normal respiratory effort, lungs clear to auscultation Auscultation: no crackles, no rales and no wheezes Cardiovascular RRR, no murmur, no edema Heart Sounds: normal S1 and normal S2 Extremities: no pedal edema Gastrointestinal (Abdomen) normal bowel sounds, soft, nontender, no hepatosplenomegaly Skin no rashes, warm and dry normal turgor Neurologic awake Speech / Cognition: + abnormal speech Psychiatric A+Ox3, euthymic affect Apperance: appeared stated age Speech: normal rate/rhythm/volume of speech Discharge Data Allergies Allergy/AdvReac Type Severity Reaction Status Date / Time No Known Allergies Allergy Verified 11/23/18 02:24 Consultations 11/23/18 03:13 ED Decision to Admit Stat 11/23/18 04:55 Consult Case Management - Discharge Planning Routine 11/23/18 11:13 Consult Hematology Routine Ordered Studies 11/23/18 XR chest 1V portable CLINICAL HISTORY: 18 years-old Female presenting with Chest Pain. TECHNIQUE: Portable upright AP view of the chest was obtained. COMPARISON: 10/26/2018. FINDINGS: Cardiopericardial silhouette remains mildly enlarged. No focal opacity. No large effusion or pneumothorax. Osseous structures normal. Upper abdomen normal. IMPRESSION: 1. Persistent mild enlargement of the cardiopericardial silhouette. This could represent cardiomegaly or pericardial effusion. No other convincing evidence of acute cardiopulmonary disease. Electronically signed by: Juan Alberto Olmedo M.D. 11/23/2018 7:06 AM 11/23/18 05:56 CT head/brain wo con Routine CLINICAL HISTORY: 18 years-old Female presenting with sickle cell crisis, intermittent headaches. TECHNIQUE: Multidetector CT imaging of the head was performed without the use of intravenous contrast. IV contrast: None. One or more dose lowering techniques were used consistent with the principles of ALARA (as low as reasonably achievable), including automatic exposure control, mA or kV adjustment to individual patient size, and/or use of iterative reconstruction. COMPARISON: None. CT DOSE (mGy.cm): The estimated cumulative dose is 537.48 mGy.cm. FINDINGS: Rn Pacu topogram: Unremarkable. Ventricles and sulci normal in size. No hemorrhage. Brain parenchyma normal in appearance with preserved ulrich-white differentiation. No acute territorial infarct. No mass effect or midline shift. No extra-axial fluid collection. Paranasal sinuses and mastoid air cells clear. Calvarium intact. IMPRESSION: 1. No acute intracranial abnormality. Electronically signed by: Juan Alberto Olmedo M.D. 11/23/2018 8:20 AM Dictated: 11/23/18 0816 Transcribed: 11/23/18 0816 11/24/18 10:03 MR brain wo con Stat Brain MRI WITHOUT CONTRAST HISTORY: slurred speech, hx sickle cell TECHNIQUE: Multiplanar multisequence MRI of the brain was performed without the use of contrast. COMPARISON STUDY: Head CT 11/23/2018. FINDINGS: There are no areas of restricted diffusion to suggest acute infarction. The midline structures are intact. The paranasal sinuses are clear. The mastoid air cells are clear. The ventricles and sulci are within normal limits for age. There is no mass, hematoma, midline shift. The major vascular flow-voids at the skull base are well maintained. Enlargement of the lesser wings of the sphenoid bone which appears to be secondary to expansion of the medullary cavity. There is also focal thickening of the left parietal bone with the cortex demonstrating a hair-on-end appearance on the recent CT examination. Therefore, these findings are likely represent skeletal manifestations of the patient's known sickle cell disease. IMPRESSION: 1. No acute intracranial abnormality. 2. Enlargement of the lesser wings of the sphenoid bone and thickening of the left parietal bone which likely represents skeletal manifestations of the patient's known sickle cell disease. This remains unchanged. Electronically signed by: Cortes Fletcher M.D. 11/24/2018 12:41 PM Dictated: 11/24/18 1230 Transcribed: 11/24/18 1230 Hospital Course (1) Sickle cell crisis: "James" is a 18 yo female with a PMHx of sickle cell anemia who was admitted on 11/23/09 to 11/24/18 for evaluation of chest pain with concern for sickle cell crisis/acute chest syndrome with associated headache and slurred speech. Sickle cell crisis, chest pain Prior to this episode, James was most recently hospitalized at [facility] 10/26/18-10/27/18 for similar symptoms. She has a history of Acute Chest syndrome in May 2018. CXR on admission showed no concern for acute chest syndrome. Impression of this study was as follows: Persistent mild enlargement of the cardiopericardial silhouette. This could represent cardiomegaly or pericardial effusion. No other convincing evidence of acute cardiopulmonary disease. -IV Dilaudid 0.5mg was given for pain control. Patient required only two doses throughout stay. She was hydrated with IV fluids and her home folic acid and Vit D supplements were continued during her hospitalization. She was provided with a script for oxycodone 5mg, PO, q4h prn for pain, 12 tablets, for recurrences after discharge. Outpatient items to do: N/A Headache, slurred speech Patient experienced recurrence of neurologic sequelae witnessed by nurses and hospital care team on morning of discharge (11/24). During the episode patient was able to answer questions appropriately (at times with hand signals rather than speech), follow commands, and move her arms and legs symmetrically. Neuro exam at time of symptoms was significant only for inability to verbalize responses. There was no tonic clonic activity, no loss of bladder continence, no tongue biting, and no post-ictal state observed. Symptoms spontaneously resolved and did not recur while under our care. A non-contrast brain MRI ordered immediately to assess for ischemia: Impression: 1. No acute intracranial abnormality. 2. Enlargement of the lesser wings of the sphenoid bone and thickening of the left parietal bone which likely represents skeletal manifestations of the patient's known sickle cell disease. This remains unchanged. -James also had a non-contrast head CT scan in ED on 11/23/18 which showed no acute intracranial abnormality -Patient reported one prior episode of slurred speech for which she was [place] [facility] [place]. Brain MRI with and without contrast, MRA of head and MRA of neck were performed on 04/24/2018 for evaluation of acute infarct in light of increased risk of CVA in sickle cell patients. Impression of the above studies was abstracted from [facility] EMR was as follows: IMPRESSION: 1. No acute infarct. 2. No flow-limiting stenosis, dissection or aneurysm on, MR angiography head and MR angiography neck. 3. 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 No flow-limiting stenosis on adjacent petrous and cavernous ICA. 4. Expansile lesion involving left parietal bone likely additional focus of fibrous dysplasia in a background of generalized mild calvarial hypertrophy due to known sickle cell anemia. -Etiology of symptoms is unknown at this time Outpatient items to do: N/A Sickle cell anemia Patient follows with [facility] (Dr. Kenn Madrigal) in [place]. Her Hgb 8.7 and Hct 24.7 were on admission; data retrieved from [facility] EMR showed hgb of 7.6 and hct of 20.5 from 09/23/2018. She had been taking hydroxyurea 500mg BID, but this medication was held prior to her October hospitalization when she was ill with an infection. The plan was to restart the hydroxyurea and titrate to a dose of 2000mg, daily, however, James has not yet followed-up with Dr. Madrigal and thus has been totally off the hydroxyurea since early October. James's next follow-up visit with Dr. Madrigal scheduled for 01/15/19 in [place]. Records of this hospital stay will be forward to Dr. Madrigal's office. She reports that she does not have a car, but her sister who lives in the [place] area would possibly be able to transport her to this visit. While in the hospital, Dr. Mccoy with [facility] was consulted. He restarted James's hydroxyurea at a dose of 500mg, PO, qAM, daily. She was offered a referral for local follow up with Dr. Mccoy, which she accepted. Outpatient items to do: Titrate hydroxyurea dose. Review importance of consistent follow up care with pulp roller and PCP. (2) Sickle cell anemia: (3) Speech abnormality: Total Time Total Time Spent Total Time Spent (In Minutes): see attending attestation Discharge Plan Discharge Items Patient Disposition: Home - Self-Care Reason For Visit: SICKLE CELL CRISIS Discharge Diagnosis: Sickle cell crisis Condition on Discharge: Good Activity: Resume your previous activity Non-emergency contact: Primary Care Provider Call non-emergency contact if: your pain is not controlled Follow-up/Referrals: PCP,NO [Primary Care Provider] - Diet: Regular Addtl Attending Provider Instructions: You were hospitalized at [facility] from 11/23/18 to 11/24/18 for chest pain that was thought to be due to your sickle cell disease. You were treated with IV pain medication, which helped resolve your discomfort. A chest Xray was done and there was no concern for Acute Chest Syndrome during your hospital stay. You reported a recent history of headaches and prior episodes of slurred speech. An episode occurred on the morning of 11/24 where your speech became slurred. A brain MRI was ordered which showed no evidence of stroke, tumor, or any other abnormality. Sickle cell crisis, chest pain -You were most hospitalized at [facility] 10/26/18-10/27/18 for similar symptoms -CXR on admission showed no concern for Acute Chest Syndrome -IV Dilaudid was given for pain control -You were also given IV fluids during your hospital stay to improve your hydration status -Your folic acid and Vit D supplements were continued throughout your hospitalization -You were provided with a prescription of oxycodone (a pain killer) to take home if the pain recurs -Should you experience any intolerable pain that is not improved by taking an oxycodone tablet, please return to the emergency department. Headache, slurred speech -you experienced a episode of the above symptoms witnessed by nurses and hospital care team at 10am on 11/24 -A brain MRI was ordered immediately following this symptom recurrence which showed no evidence of an intracranial abnormality -A CT scan of your head was done in the emergency department on 11/23/18 and also showed no showed no evidence of damage -the cause of your symptoms is unknown at this time Sickle cell anemia -Your hemoglobin (oxygen carrying component of the blood) was low on admission, but improved from September 2018 - You reported being off your hydroxyurea medication for the past 6 weeks -Your hydroxyurea was restarted while in the hospital at a dose of 500mg, daily. Please continue to take this medication as directed until you follow up with Dr. Dietrich with [facility] or Dr. Madrigal with [facility], at which time your dose may be adjusted - It is essential that you follow up with a pulp roller regarding your sickle cell disease -Although you typically see Dr. Madrigal in [place], a referral was placed with Dr. Mccoy in [place] given the close proximity Pending Studies at Discharge: No Studies:: Brain MRI WITHOUT CONTRAST HISTORY: slurred speech, hx sickle cell TECHNIQUE: Multiplanar multisequence MRI of the brain was performed without the use of contrast. COMPARISON STUDY: Head CT 11/23/2018. FINDINGS: There are no areas of restricted diffusion to suggest acute infarction. The midline structures are intact. The paranasal sinuses are clear. The mastoid air cells are clear. The ventricles and sulci are within normal limits for age. There is no mass, hematoma, midline shift. The major vascular flow-voids at the skull base are well maintained. Enlargement of the lesser wings of the sphenoid bone which appears to be secondary to expansion of the medullary cavity. There is also focal thickening of the left parietal bone with the cortex demonstrating a hair-on-end appearance on the recent CT examination. Therefore, these findings are likely represent skeletal manifestations of the patient's known sickle cell disease. IMPRESSION: 1. No acute intracranial abnormality. 2. Enlargement of the lesser wings of the sphenoid bone and thickening of the left parietal bone which likely represents skeletal manifestations of the patient's known sickle cell disease. This remains unchanged. Electronically signed by: Cortes Fletcher M.D. 11/24/2018 12:41 PM Dictated: 11/24/18 1230 Transcribed: 11/24/18 1230 Stand-Alone Forms: [facility] Medications and DC Order Prescriptions: New hydroxyurea 500 mg Capsule 500 mg PO QAM 30 Days Qty: 90 RF: 0 oxycodone 5 mg tablet 5 mg PO Q6H PRN (Reason: pain) Qty: 12 RF: 0 Continued ibuprofen 200 mg Tablet 200 mg PO Q6H PRN (Reason: Pain) RF: 0 cholecalciferol (vitamin D3) [Vitamin D3] 1,000 unit Capsule PO HS RF: 0 folic acid 1 mg Tablet 2 mg PO DAILY RF: 0 Discharge Orders: Discharge Order (Routine); Ordered 11/24/18 Ordered By: Windy Tavarez Admission Data Admit Date/Time: 11/23/18 04:22 Attending Provider: Selam Kaye Admit Provider: Eleonora Coleman Primary Care Provider: PCP,NO Other Providers: Chandler Mena ; Wan Zaman Other Interventions: Discharge Summary Assessment (RN) Last Done: 11/24/18 17:34 Supervising Physician Co-Signing Physician Notes Patient seen and examined with PGY-1 Dr. Tavarez and PGY-3 Dr. Mendenhall. Agree with history, exam findings, assessment and plan of care as outlined by Dr. Tavarez. In brief, James is a 18 year old female with hx of sickle cell disease admitted with concerns for chest pain and an episode of slurred speech. The chest pain is now improved after IVFs and 1 dose of dilaudid. She has not had another episodes of slurred speech or other new neurologic symptoms. This morning, a rapid response was called when she started having some headache, difficulty speaking, and felt her eyes rolling in the back of her head. During this episode, VSS. She is able to get words out and was able to nod and shake her head to appropriately answer questions. No post-ictal type state. Received 1 dose of dilaudid. Episode self resolved. Chest pain is improved. 1. Sickle cell pain. Improved. Given Rx for a small amount of oxycodone 5mg to attempt to treat pain at home and avoid repeated hospital stays. 2. Slurred speech. CT head normal on admission. Prior MRI/MRA head and neck done in April 2018 in [place] relatively unremarkable. Repeat MRI non-contrast done today without acute findings. 3. Sickle cell. Appreciate heme/onc recommendations to restart hydroxyurea at 500mg. Dispo: Discharge home today. Will follow up with heme/onc locally. Can transition care to [place] if she wishes, although she does not have a car. Establish with PCP at [facility] with 1-2 weeks. I personally spent 35 minutes discharge planning for this patient. Resident Activity Tracking Resident Involvement: Resident Care Provided Care Provided: Adult Hospital Medicine
== END 2018-11-24 18:42 | disposition home or self-care (01) ==
LOC: 2W 01:50 → ED 01:50 → SUATTDRO 04:22 → 2W 04:47

== ENCOUNTER 2018-11-27 22:03 | Observation (INO) ==
[2018-11-27] MEDS ORDERED: SODIUM CHLORIDE 0.9% 1000ML 1,000 ML IV SCH (22:15)
[2018-11-27 23:34] LABS: Basophils # (auto) 0.07 K/uL (0-0.2); Basophils % (auto) 0.8 %; Eosinophils # (auto) 0.28 K/uL (0-0.5); Eosinophils % (auto) 3.1 %; Hematocrit (blood only) 25.4 % (37-47); Immature Granulocytes # (auto) 0.01 K/uL (0.00-0.02); Immature Granulocytes % (auto) 0.1 %; Lymphocytes # (auto) 3.18 K/uL (1.2-3.4); Lymphocytes % (auto) 35.1 %; Mean Corpuscular Hemoglobin 33.5 pg (25-34); Mean Corpuscular Hgb Conc 35.4 g/dL (32-36); Mean Corpuscular Volume 94.4 fL (80-100); Mean Platelet Volume 9.9 fL (7.4-10.4); Monocytes % (auto) 6.6 %; Neutrophils # (auto) 4.92 K/uL (1.4-6.5); Neutrophils % (auto) 54.3 %; Nucleated RBC # (auto) 0.08 K/uL (0-0); Nucleated RBC % (auto) 0.9 %; Platelet Count 365 K/uL (130-400); RDW Coefficient of Variation 17.9 % (11.5-14.5); Red Blood Count 2.69 M/uL (4.2-5.4); Reticulocyte % 9.8 % (0.5-2.0); Reticulocytes # 0.26 10^6/uL (0.02-0.10); White Blood Count 9.06 K/uL (4.8-10.8)
[2018-11-27 23:44] LABS: Alanine Aminotransferase 40 U/L (12-78); Albumin Level 4.2 gm/dl (3.4-5.0); Aspartate Aminotransferase 63 U/L (15-37); Blood Urea Nitrogen 6 mg/dl (7-18); Calcium 8.9 mg/dl (8.5-10.1); Carbon Dioxide 29 mmol/L (21-32); Chloride 102 mmol/L (98-107); Creatinine Clr Calc Pharmacy 147.9 ml/min; Est GFR (African American) > 150.0; Est GFR (Non-African American) 131.9; Glucose 99 mg/dl (70-99); Magnesium 1.9 mg/dl (1.8-2.4); Potassium 3.4 mmol/L (3.5-5.1); Sodium 136 mmol/L (136-145)
[2018-11-27 23:47] LABS: Alkaline Phosphatase 83 U/L (45-117); Bilirubin,Total 2.9 mg/dl (0.2-1); Globulin 4.1 gm/dl (2.5-4.0); Phosphorus 3.6 mg/dl (2.5-4.9); Total Protein 8.3 gm/dl (6.4-8.2)
[2018-11-27] MEDS ORDERED: ONDANSETRON INJ 2 MG/ML 2 ML VIAL IV STA (23:58)
[2018-11-27] MEDS ORDERED: MoRPHine SULFATE 10 MG/ML CARP/VIAL IV STA (23:58)
--- NOTE | 2018-11-28 00:41 | Emergency Department Note ---
Entered by Stacy Monreal acting as a scribe for Jhoan Hoffmann MD History of Present Illness General Chief complaint: Seizure Stated complaint: SEIZURE Time Seen by Provider: 11/27/18 22:07 Source: patient History of Present Illness Onset (ago): hour(s) (just prior to arrival) Location: head (general) Pain Consistency: + other (episode ) Quality: + other (shaking) Associated symptoms: + chest pain, + headaches (now resolved ) and + other (posi tive right leg stiffness; positive eyes rolling back; positive stuttering ) Treatments prior to arrival: other (oxycodone; ibuprofen) The patient is a 18 year old black female w/ PMHx of Sickle Cell who presents to the ED w/ CC of an episode of shaking beginning just prior to arrival. The patient states that her whole body began shaking uncontrollably. She reports right leg stiffness and chest pain. The patient states that recently she has had episodes of her eyes rolling back in her head and stuttering speech that have been getting worse. The patient denies any recent falls or hitting her head. The patient states that she has had a headache all week, but denies having a headache currently. She states that she has been taking Oxycodone and Ibuprofen for her pain, but states that these are not relieving her pain. The patient states that her pain currently is not similar to her previous sickle cell pain. The patient states that her last transfusion was 2-3 weeks ago. Home Medications Home Medications Medication Instructions Recorded Confirmed Type cholecalciferol (vitamin D3) 0 unit PO HS 10/26/18 11/28/18 History [Vitamin D3] hydroxyurea 500 mg PO QAM 30 Days #90 cap 11/24/18 11/28/18 Rx oxycodone 5 mg PO Q6H PRN #12 tab 11/24/18 11/28/18 Rx Allergies Allergy/AdvReac Type Severity Reaction Status Date / Time No Known Allergies Allergy Verified 11/28/18 00:40 Past Med/Surg History Medical History Sickle cell anemia (Chronic) Pneumonia Family History Other Family history non-contributory Social History (Reviewed 11/28/18 @ 03:06 by ELENITA Hale Preferred Language: Wolof Communication Ability: Effective 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 and A total of 10 systems reviewed and were otherwise negative Physical Exam Vital Signs Vital Signs - 24 hr 11/27/18 22:00 11/27/18 23:44 11/28/18 00:00 Temperature 37 C Temperature Source Oral Sepsis Recent Fever Within 48 Hours No Sepsis Action Taken by Nursing No Action Required Pulse Rate 70 58 L Pulse Rate [Left Radial] 58 L Pulse Rate from SpO2 Sensor 59 L Pulse Rhythm Regular Pulse Rhythm [Left Radial] Regular Pulse Strength Normal Pulse Strength [Left Radial] Normal Respiratory Rate 16 16 15 Respiratory Effort / Characteristics Non-Labored Non-Labored Respiratory Depth Normal Normal Respiratory Pattern Regular Regular Blood Pressure 111/62 98/60 L Blood Pressure [Right Arm] 117/44 L Blood Pressure Mean 78 72 Blood Pressure Mean [Right Arm] 68 Blood Pressure Position Lying Blood Pressure Position [Right Arm] Lying Pulse Oximetry 97 97 97 Oxygen Delivery Method Room Air Room Air 11/28/18 00:20 11/28/18 00:30 11/28/18 01:00 Temperature Temperature Source Sepsis Recent Fever Within 48 Hours Sepsis Action Taken by Nursing Pulse Rate 60 65 61 Pulse Rate [Left Radial] Pulse Rate from SpO2 Sensor 60 65 60 Pulse Rhythm Pulse Rhythm [Left Radial] Pulse Strength Pulse Strength [Left Radial] Respiratory Rate 22 14 12 Respiratory Effort / Characteristics Respiratory Depth Respiratory Pattern Blood Pressure 98/60 L 90/48 L 91/43 L Blood Pressure [Right Arm] Blood Pressure Mean 72 62 59 Blood Pressure Mean [Right Arm] Blood Pressure Position Blood Pressure Position [Right Arm] Pulse Oximetry 96 95 95 Oxygen Delivery Method GENERAL: Well appearing, well nourished, NAD, non-toxic. EYE EXAM: Normal conjunctiva. PERRL, no anisocoria and EOM's grossly intact w/o pain. OROPHARYNX: Moist mucus membranes. Grossly normal dentition. NECK: Supple, no nuchal rigidity, no adenopathy, non-tender. no signs of meningismus. LUNGS: Clear to auscultation. Normal chest wall mechanics. HEART: NSR, no MRG. ABDOMEN: Abdomen soft, non-tender, normo-active bowel sounds, no masses, no rebound or guarding. BACK: No CVA TTP. SKIN: No rashes and no bruising. UPPER EXTREMITIES: Upper extremities are grossly normal. LOWER EXTREMITIES: No pitting edema. No calf pain. NEURO EXAM: A&O x3, cranial nerves II-XII grossly intact with the exception of stuttering speech; moves all 4 extremities on command w/o issue. Course 2213: Past medical records reviewed. The patient was evaluated in room C9. A complete history and physical exam was performed. The patient was discharged on 11/24/2018. She had a negative CT of her head and MRI brain without contrast at this time. Administered Medications Enoxaparin Sodium (Lovenox) 40 mg SQ Q24H WALTER Stop: 12/28/18 07:59 Last Admin: 11/28/18 08:45 Dose: 40 mg Documented by: [id number] Famotidine (Pepcid) 20 mg PO BID WALTER Stop: 12/28/18 08:59 Last Admin: 11/28/18 08:44 Dose: 20 mg Documented by: [id number] Hydroxyurea (Hydrea) 500 mg PO QAM WALTER Stop: 12/28/18 08:59 Last Admin: 11/28/18 08:44 Dose: 500 mg Documented by: [id number] Cosigned by: [id number] Potassium Chloride/Dextrose/Sod Cl (D5w And 1/2nss + 20meq Kcl) 20 meq in 1,000 mls @ 125 mls/hr IV .Q8H WALTER Stop: 12/28/18 01:59 Last Admin: 11/28/18 17:34 Dose: 125 mls/hr Documented by: [id number] Infusion: 11/28/18 17:34 Dose: 125 mls/hr Documented by: [id number] Admin: 11/28/18 10:51 Dose: 125 mls/hr Documented by: [id number] Infusion: 11/28/18 10:24 Dose: 125 mls/hr Documented by: [id number] Admin: 11/28/18 02:24 Dose: 125 mls/hr Documented by: [id number] Discontinued Medications Sodium Chloride (Nss 1000ml) 1,000 mls @ 999 mls/hr IV .Q1H1M WALTER Stop: 11/27/18 23:15 Last Infusion: 11/28/18 00:32 Dose: 0 mls/hr Documented by: [id number] Admin: 11/27/18 23:30 Dose: 999 mls/hr Documented by: [id number] Morphine Sulfate (Morphine Sulfate) 8 mg IV NOW STA Stop: 11/27/18 23:59 Last Admin: 11/28/18 00:15 Dose: 8 mg Documented by: [id number] Ondansetron HCl (Zofran) 4 mg IV NOW STA Stop: 11/27/18 23:59 Last Admin: 11/28/18 00:16 Dose: 4 mg Documented by: [id number] Medical Decision Making Medical Records Attestation: I reviewed the patient's medical records. Home Medications Current Medication List: was personally reviewed by me Laboratory Data Attestation: I reviewed the patient's lab results. Result diagrams: 11/28/18 06:36 11/28/18 06:36 Lab Results 11/27/18 11/27/18 11/27/18 Range/Units 22:26 23:16 23:16 WBC 9.06 (4.8-10.8) K/uL RBC 2.69 L (4.2-5.4) M/uL Hgb 9.0 L (12.0-16.0) g/dL Hct 25.4 L (37-47) % MCV 94.4 (80-100) fL MCH 33.5 (25-34) pg MCHC 35.4 (32-36) g/dL RDW Std Deviation 61.0 H (36.4-46.3) fL RDW Coeff of Nando 17.9 H (11.5-14.5) % Plt Count 365 (130-400) K/uL MPV 9.9 (7.4-10.4) fL Immature Gran % (Auto) 0.1 % Neut % (Auto) 54.3 % Lymph % (Auto) 35.1 % [place] % (Auto) 6.6 % Eos % (Auto) 3.1 % Baso % (Auto) 0.8 % Reticulocyte % (Auto) 9.8 H (0.5-2.0) % Immature Gran # (Auto) 0.01 (0.00-0.02) K/uL Neut # (Auto) 4.92 (1.4-6.5) K/uL Lymph # (Auto) 3.18 (1.2-3.4) K/uL [place] # (Auto) 0.60 H (0.11-0.59) K/uL Eos # (Auto) 0.28 (0-0.5) K/uL Baso # (Auto) 0.07 (0-0.2) K/uL Reticulocyte # 0.26 H (0.02-0.10) 10^6/uL Absolute Nucleated RBC 0.08 H (0-0) K/uL Nucleated RBC % (auto) 0.9 % Sodium 136 (136-145) mmol/L Potassium 3.4 L (3.5-5.1) mmol/L Chloride 102 (98-107) mmol/L Carbon Dioxide 29 (21-32) mmol/L Anion Gap 5.0 (3-11) BUN 6 L (7-18) mg/dl Creatinine 0.59 L (0.6-1.2) mg/dl Est Cr Clr Drug Dosing 147.9 ml/min Est GFR ( Amer) > 150.0 Est GFR (Non-Af Amer) 131.9 BUN/Creatinine Ratio 10.0 (10-20) Glucose 99 (70-99) mg/dl POC Glucose 108 H (70-99) Calcium 8.9 (8.5-10.1) mg/dl Phosphorus 3.6 (2.5-4.9) mg/dl Magnesium 1.9 (1.8-2.4) mg/dl Total Bilirubin 2.9 H (0.2-1) mg/dl AST 63 H (15-37) U/L ALT 40 (12-78) U/L Alkaline Phosphatase 83 (45-117) U/L Total Protein 8.3 H (6.4-8.2) gm/dl Albumin 4.2 (3.4-5.0) gm/dl Globulin 4.1 H (2.5-4.0) gm/dl Albumin/Globulin Ratio 1.0 (0.9-2) Imaging Data Radiologist's Impression: Radiology results as stated below per my review in the radiologist's interpretation: CT head without contrast: No acute intracranial process. Cortical thickening and some striations in the left parietal skull as before. Radiologist: Alice Jessica M.D. ECG Data Attestation: I personally reviewed and interpreted this ECG as follows: Indication: chest pain Rate (beats per minute): 63 Rhythm: sinus rhythm Findings: + other (normal axis), + 1st degree AV block and + T-wave inversion (anteriorly) Comparison ECG Date: from (11/23/2018) Change: the following changes noted (1st degree AV block old; TWI in V2 is new) Blood Pressure Blood Pressure Findings: Normal blood pressure MDM Narrative The patient is a 18 year old black female w/ PMHx of Sickle Cell who presents to the ED w/ CC of an episode of shaking beginning just prior to arrival. Differential diagnoses includes but is not limited to toxic, metabolic, infectious, traumatic, cardiac, neurologic, hematologic, psychiatric and inflammatory etiologies. Patient was seen and evaluated the bedside. The patient did present with questionable seizure-like activity as well as concern for stuttering speech. The patient does have a known history of sickle cell disease. The patient states that she has complained of some mild headache. Patient is afebrile and does not appear meningitic. The patient has a nonfocal neurologic exam with the exception of some stuttering or even slurred speech. I did review the patient's last admission which did show that that the patient had a negative CT head and MRI noncontrast of the brain. Patient states that this is been persistent she is concerned. The patient has a normal baseline hemoglobin at 9. Her to count is elevated which would be consistent with the patient's sickle cell disease. No concern for aplastic crises. Patient's white count is normal chest x-ray is clear. Do not believe that this is acute chest. I did review a video of the patient's seizure-like activity. Does not appear to be is consistent with classic tonic-clonic some like seizures. This apparently has not been ruled out by the patient with an EEG in the past. The patient is otherwise well-appearing upon reassessment sleeping comfortably. Upon further reassessment after negative CAT scan patient no longer had any stuttering speech. Whether not this is psychosomatic versus dehydration versus a stuttering type of TIA secondary to sickle cell disease with the patient would benefit from inpatient treatment and a possible neurologic neurology consult. Patient has been seen by hematology in the past and was uptitrated on hydroxyurea and does have pain medication for home. I did speak the on-call hospitalist agreed to further evaluate treat the patient. Patient was admitted to the medicine service. Impression & Plan Sickle cell anemia, Dehydration, Speech abnormality Discharge Plan Visit Data *Final* Discharge Date/Time: 11/28/18 01:54 Chief Complaint: Seizure Stated Complaint: SEIZURE ED Provider: Jhoan Hoffmann Discharge Problem: Sickle cell anemia, Dehydration, Speech abnormality Patient Disposition: Admitted As Inpatient Condition: Good Discharge Instructions Interventions: ED Discharge Assessment Last Done: 11/28/18 01:54 Discharge Problem: Sickle cell anemia Qualifiers: Sickle-cell associated disorders: with unspecified crisis Qualified Code(s): D57.00 - Hb-SS disease with crisis, unspecified Speech abnormality Qualifiers: Speech disturbance type: slurred speech Qualified Code(s): R47.81 - Slurred speech The scribe's documentation has been prepared under my direction and personally reviewed by me in its entirety. I confirm that the note above accurately refle cts all work, treatment, procedures, and medical decision making performed by me.
[2018-11-28] MEDS ORDERED: MoRPHine SULFATE 4 MG/ML 1 ML CARP\\VIAL IV PRN (01:07)
[2018-11-28] MEDS ORDERED: OXYCODONE HCL IR 5 MG TAB (IMMEDIATE RELEASE) PO PRN (01:07)
[2018-11-28] MEDS ORDERED: ACETAMINOPHEN 325 MG TAB PO PRN (01:07)
[2018-11-28] MEDS ORDERED: ONDANSETRON INJ 2 MG/ML 2 ML VIAL IV PRN (01:47)
[2018-11-28] MEDS: D5W AND 1/2NSS + 20MEQ KCL 20 MEQ/1,000 ML BAG IV SCH ×3 (02:24→17:34)
[2018-11-28] MEDS ORDERED: INFLUENZA VIRUS QUAD VACCINE 0.5 ML SYR IM ONE (03:00)
[2018-11-28] MEDS ORDERED: INFLUENZA ADMINISTRATION CHARGE ONE (03:00)
--- NOTE | 2018-11-28 03:11 | History & Physical Report ---
Date of Service November 28, 2018 Assessment & Plan (1) Seizure-like activity: Obs PCU EEG in am I am told that patient recently had work up at [place] for seizure-like activity, but I can not confirm testing at this time. She recalls having MRI. (2) Speech abnormality: Transient. (3) Sickle cell anemia: Stable no crisis Continue hydroxyurea Continue pain control. History of Present Illness 18 y/o female presented to the ED after having a seizure-like episode in which she described having her entire body shaking uncontrollably without loss of consciousness. She reports that she has had episodes of her eyes rolling back in head and episodic stuttering which has been getting worse. She did not loss bowel or bladder control, no post-ictal period, no tongue biting. She has chronic chest pain which she attributes to her sickle cell diagnosis. She did report having a headache this past week, but does not have a headache at this time. She recently started taking hydroxyurea. Primary Care Provider: [facility] Allergies Allergy/AdvReac Type Severity Reaction Status Date / Time No Known Allergies Allergy Verified 11/28/18 00:40 Home Medications Home Medications Medication Instructions Recorded Confirmed Type cholecalciferol (vitamin D3) 0 unit PO HS 10/26/18 11/28/18 History [Vitamin D3] hydroxyurea 500 mg PO QAM 30 Days #90 cap 11/24/18 11/28/18 Rx hydroxyurea 500 mg PO QAM #30 cap 11/29/18 Rx lamotrigine [Lamictal] 25 mg PO BID 30 Days #140 tab 11/29/18 Rx Past Med/Surg History Medical History Sickle cell anemia (Chronic) Pneumonia Family History Mother Hypertension Father Ulcer Other Family history non-contributory Social History Preferred Language: Nepalese Communication Ability: Effective Locket Maker Required: No Beliefs That Will Affect Care: None marital status: Single Current Living Situation: Other Current Living Situation Comment: in an apartment with roommates 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 current occupation: [employer] major Feels Safe at Home: Yes Smoking Status: Never smoker Second Hand Exposure: No ; Hx Alcohol Use: No Hx Substance Use: No Review of Systems Review of Systems: All systems reviewed & are unremarkable except as noted in HPI & below Physical Exam Physical Exam: General- adult female, NAD Head- atraumatic Eyes- PERRL, EOMI, anicteric ENT- oropharynx clear Neck- supple, no JVD, no adenopathy, no thyromegaly. Lungs- clear to auscultation b/l. No R/R/W. Heart- regular rhythm; no murmur, no gallop, no rub appreciated Abdomen- normal bowel sounds, soft, nontender. Extremities- no pretibial edema, no calf tenderness; peripheral pulses intact Neuro- alert, oriented x 3; PERRL, EOMI; fiber technician II-XII grossly intact, Non-focal. No stuttering with conversation during my exam. Skin- warm & dry Results & Data Vital Signs (Past 12 Hours) Vital Signs Temp Pulse Pulse Resp BP BP Pulse Ox 11/28/18 02:10 36.5 C 56 L 17 102/53 L 97 11/28/18 01:47 57 L 11/28/18 01:30 63 15 97/55 L 98 11/28/18 01:00 61 12 91/43 L 95 11/28/18 00:30 65 14 90/48 L 95 11/28/18 00:20 60 22 98/60 L 96 11/28/18 00:00 58 L 15 98/60 L 97 11/27/18 23:44 58 L 16 117/44 L 97 11/27/18 22:00 37 C 70 16 111/62 97 Laboratory Results Laboratory Results WBC 9.06 K/uL (4.8-10.8) 11/27/18 23:16 RBC 2.69 M/uL (4.2-5.4) L 11/27/18 23:16 Hgb 9.0 g/dL (12.0-16.0) L 11/27/18 23:16 Hct 25.4 % (37-47) L 11/27/18 23:16 MCV 94.4 fL (80-100) 11/27/18 23:16 MCH 33.5 pg (25-34) 11/27/18 23:16 MCHC 35.4 g/dL (32-36) 11/27/18 23:16 RDW Std Deviation 61.0 fL (36.4-46.3) H 11/27/18 23:16 RDW Coeff of Nando 17.9 % (11.5-14.5) H 11/27/18 23:16 Plt Count 365 K/uL (130-400) 11/27/18 23:16 MPV 9.9 fL (7.4-10.4) 11/27/18 23:16 Immature Gran % (Auto) 0.1 % 11/27/18 23:16 Neut % (Auto) 54.3 % 11/27/18 23:16 Lymph % (Auto) 35.1 % 11/27/18 23:16 [place] % (Auto) 6.6 % 11/27/18 23:16 Eos % (Auto) 3.1 % 11/27/18 23:16 Baso % (Auto) 0.8 % 11/27/18 23:16 Reticulocyte % (Auto) 9.8 % (0.5-2.0) H 11/27/18 23:16 Immature Gran # (Auto) 0.01 K/uL (0.00-0.02) 11/27/18 23:16 Neut # (Auto) 4.92 K/uL (1.4-6.5) 11/27/18 23:16 Lymph # (Auto) 3.18 K/uL (1.2-3.4) 11/27/18 23:16 [place] # (Auto) 0.60 K/uL (0.11-0.59) H 11/27/18 23:16 Eos # (Auto) 0.28 K/uL (0-0.5) 11/27/18 23:16 Baso # (Auto) 0.07 K/uL (0-0.2) 11/27/18 23:16 Reticulocyte # 0.26 10^6/uL (0.02-0.10) H 11/27/18 23:16 Absolute Nucleated RBC 0.08 K/uL (0-0) H 11/27/18 23:16 Nucleated RBC % (auto) 0.9 % 11/27/18 23:16 Sodium 136 mmol/L (136-145) 11/27/18 23:16 Potassium 3.4 mmol/L (3.5-5.1) L 11/27/18 23:16 Chloride 102 mmol/L (98-107) 11/27/18 23:16 Carbon Dioxide 29 mmol/L (21-32) 11/27/18 23:16 Anion Gap 5.0 (3-11) 11/27/18 23:16 BUN 6 mg/dl (7-18) L 11/27/18 23:16 Creatinine 0.59 mg/dl (0.6-1.2) L 11/27/18 23:16 Est Cr Clr Drug Dosing 147.9 ml/min 11/27/18 23:16 Est GFR ( Amer) > 150.0 11/27/18 23:16 Est GFR (Non-Af Amer) 131.9 11/27/18 23:16 BUN/Creatinine Ratio 10.0 (10-20) 11/27/18 23:16 Glucose 99 mg/dl (70-99) 11/27/18 23:16 POC Glucose 108 (70-99) H 11/27/18 22:26 Calcium 8.9 mg/dl (8.5-10.1) 11/27/18 23:16 Phosphorus 3.6 mg/dl (2.5-4.9) 11/27/18 23:16 Magnesium 1.9 mg/dl (1.8-2.4) 11/27/18 23:16 Total Bilirubin 2.9 mg/dl (0.2-1) H 11/27/18 23:16 AST 63 U/L (15-37) H 11/27/18 23:16 ALT 40 U/L (12-78) 11/27/18 23:16 Alkaline Phosphatase 83 U/L (45-117) 11/27/18 23:16 Total Protein 8.3 gm/dl (6.4-8.2) H 11/27/18 23:16 Albumin 4.2 gm/dl (3.4-5.0) 11/27/18 23:16 Globulin 4.1 gm/dl (2.5-4.0) H 11/27/18 23:16 Albumin/Globulin Ratio 1.0 (0.9-2) 11/27/18 23:16 Code Status & VTE Plan VTE Prophylaxis Plan VTE Prophylaxis will be ordered: Yes PG Care Time/CCT Total # of Minutes Spent Total Time Spent: 55 Total Time Spent with Patient: Total time spent is greater than 50% in coordination of care (as documented) at patient's floor/unit and/or counseling patient: (1) Sickle cell anemia Sickle-cell associated disorders: with unspecified crisis Qualified Code(s): D57.00 - Hb-SS disease with crisis, unspecified; D57.0 - Hb-SS disease with crisis (2) Speech abnormality Speech disturbance type: slurred speech Qualified Code(s): R47.81 - Slurred speech
[2018-11-28 07:15] LABS: Hematocrit (blood only) 23.5 % (37-47); Hemoglobin 8.3 g/dL (12.0-16.0); Mean Corpuscular Hemoglobin 33.7 pg (25-34); Mean Corpuscular Hgb Conc 35.3 g/dL (32-36); Mean Corpuscular Volume 95.5 fL (80-100); Mean Platelet Volume 9.5 fL (7.4-10.4); Nucleated RBC # (auto) 0.05 K/uL (0-0); Nucleated RBC % (auto) 0.7 %; Platelet Count 326 K/uL (130-400); RDW Coefficient of Variation 18.1 % (11.5-14.5); RDW Standard Deviation 62.6 fL (36.4-46.3); Red Blood Count 2.46 M/uL (4.2-5.4); White Blood Count 7.15 K/uL (4.8-10.8)
--- NOTE | 2018-11-28 07:18 | CT Scan Report ---
CT head/brain wo con CLINICAL HISTORY: 18 years-old Female with ?seizure. Acute seizure like activity TECHNIQUE: Multiple axial CT images of the head were obtained without contrast. A dose lowering tech nique was utilized adhering to the principles of ALARA. CT DOSE: 614.27 mGy.cm COMPARISON: Head CT 11/23/2018, brain MRI 11/24/2018. FINDINGS: No acute intracranial hemorrhage, midline shift, intracranial mass, hydrocephalus, territorial ischem ia or abnormal extra-axial collection. The calvarium is intact. Enlargement and expansion of the lesser wings of the sphenoid redemonstrated . Thickening of the left parietal bone in the vertex also appears unchanged. Congenital incomplete rell ny fusion noted about the posterior arch of C1. The paranasal sinuses, mastoid air cells, and middle ear cavities are clear. IMPRESSION: 1. No acute intracranial abnormality. 2. 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 These findings are likely se condary to the patient's known sickle cell disease. 3. 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 The above report was generated using voice recognition software. It may contain grammatical, syntax o r spelling errors. Electronically signed by: Arturo Jennings M.D. 11/28/2018 7:17 AM
[2018-11-28 07:58] LABS: BUN Creatinine Ratio 8.4 (10-20); Blood Urea Nitrogen 4 mg/dl (7-18); Calcium 8.1 mg/dl (8.5-10.1); Carbon Dioxide 26 mmol/L (21-32); Chloride 104 mmol/L (98-107); Creatinine Clr Calc Pharmacy 164.7 ml/min; Est GFR (African American) > 150.0; Est GFR (Non-African American) 136.7; Glucose 118 mg/dl (70-99); Potassium 3.5 mmol/L (3.5-5.1); Sodium 137 mmol/L (136-145)
[2018-11-28] MEDS: HYDROXYUREA 500 MG CAP PO SCH (08:44)
[2018-11-28] MEDS: FAMOTIDINE 20 MG TAB PO SCH ×2 (08:44→21:47)
[2018-11-28] MEDS: ENOXAPARIN INJ 40 MG/0.4 ML SYR SQ SCH (08:45)
--- NOTE | 2018-11-28 10:58 | Family Medicine Progress Note ---
Date of Service November 28, 2018 Assessment & Plan (1) Seizure-like activity: - first episode of full body seizure-like activity - EEG pending - Neurology input appreciated - urine tox pending to r/o alternate source - no electrolyte derangements noted - CT head on 11/27 negative, MRI from previous admission negative (2) Sickle cell crisis: - recently restarted on hydroxyurea - follows with Heme/Onc in [place] - responding well to 125 ml D5W 1/2NS drip - morphine 4 mg IV Q4 PRN and Oxycodone 5 mg PO Q4 PRN ordered for pain management - Zofran IV for nausea (3) Sickle cell anemia: (4) Dehydration: Supervising Physician Co-Signing Physician Notes Attending attestation Pt seen and examined in concert with Dr. Bailey. In agreement with the documented findings as noted in the resident documentation with any exceptions or additions as noted here. Resting comfortably in bed without acute seizure complaint on examination. On exam, S1/S2 nl RRR no MCG. CTAB. Abd NT/ND BS+ve Atypical seizure like activity - neurology consultation appreciated - EEG pending. MRI and CT recently completed and reviewed. No significant electrolyte abnormalities appreciated. Sickle cell anemia w/ baseline hgb ~8s - continue to monitor CBC. Hemoglobin ~baseline. IV hydration as noted. Pain control as needed. Else see resident documentation as noted. Subjective 18yo F with PMH of sickle cell disease and sickle cell crisis who was admitted to the hospital after having seizure like activity during class and being brought in by EMS. This morning she describes the event has starting with her eyes rolling into the back of her head, feeling pain, right leg starting to stiffen, and then her entire body starting to shake. She states this is the first time her entire body shook, but she has had previous episodes that have been restricted to her right leg. Head CT in ED showed no acute intracranial abnormality or change. Of note, she was discharged from the hospital on 11/24 for chest pain and daily headaches. At that time she had a CT head and MRI both of which showed no acute intracranial abnormality. This morning she attests to feeling tired and having chest pain at rest. She describes the pain as being a pressure and squeezing sensation on her chest. Denies any shortness of breath or pain with taking deep breaths. Denies N/V/C/D. Denies blurry vision. Says she feels dizzy all the time, including when lying down. Dizziness does not change with position. Review of Systems Constitutional: + body aches; no fever, no chills, no sweats and no fatigue Respiratory: no cough, no hemoptysis and no wheezing Cardiovascular: + chest pain and + lightheadedness; no dyspnea at rest, no syncope and no edema Gastrointestinal: no abdominal pain, no nausea, no vomiting and no change in stools Neurologic: + seizure-like activity, + dizziness, + headache(s) and + abnormal speech Physical Exam Constitutional: + thin and cooperative Respiratory: normal respiratory effort, lungs clear to auscultation Cardiovascular: RRR, no murmur, no edema Extremities: no calf tenderness Gastrointestinal (Abdomen): Inspection/Auscultation: abdomen normal to inspection Percussion/Palpation: abdomen soft; abdomen nontender and no guarding Neurologic: PERRL, EOMI, accommodation nl, no face palsy, no dysarthria Speech / Cognition: normal speech Results & Data Vital Signs (Past 12 Hours) Vital Signs Temp Pulse Pulse Resp BP BP Pulse Ox 11/28/18 09:47 52 L 11/28/18 07:33 36.2 C L 56 L 14 102/52 L 97 11/28/18 02:10 36.5 C 56 L 17 102/53 L 97 11/28/18 01:47 57 L 11/28/18 01:30 63 15 97/55 L 98 11/28/18 01:00 61 12 91/43 L 95 11/28/18 00:30 65 14 90/48 L 95 11/28/18 00:20 60 22 98/60 L 96 11/28/18 00:00 58 L 15 98/60 L 97 11/27/18 23:44 58 L 16 117/44 L 97 Laboratory Results WBC 7.15 K/uL (4.8-10.8) 11/28/18 06:36 RBC 2.46 M/uL (4.2-5.4) L 11/28/18 06:36 Hgb 8.3 g/dL (12.0-16.0) L 11/28/18 06:36 Hct 23.5 % (37-47) L 11/28/18 06:36 MCV 95.5 fL (80-100) 11/28/18 06:36 MCH 33.7 pg (25-34) 11/28/18 06:36 MCHC 35.3 g/dL (32-36) 11/28/18 06:36 RDW Std Deviation 62.6 fL (36.4-46.3) H 11/28/18 06:36 RDW Coeff of Nando 18.1 % (11.5-14.5) H 11/28/18 06:36 Plt Count 326 K/uL (130-400) 11/28/18 06:36 MPV 9.5 fL (7.4-10.4) 11/28/18 06:36 Immature Gran % (Auto) 0.1 % 11/27/18 23:16 Neut % (Auto) 54.3 % 11/27/18 23:16 Lymph % (Auto) 35.1 % 11/27/18 23:16 Perry % (Auto) 6.6 % 11/27/18 23:16 Eos % (Auto) 3.1 % 11/27/18 23:16 Baso % (Auto) 0.8 % 11/27/18 23:16 Reticulocyte % (Auto) 9.8 % (0.5-2.0) H 11/27/18 23:16 Immature Gran # (Auto) 0.01 K/uL (0.00-0.02) 11/27/18 23:16 Neut # (Auto) 4.92 K/uL (1.4-6.5) 11/27/18 23:16 Lymph # (Auto) 3.18 K/uL (1.2-3.4) 11/27/18 23:16 Perry # (Auto) 0.60 K/uL (0.11-0.59) H 11/27/18 23:16 Eos # (Auto) 0.28 K/uL (0-0.5) 11/27/18 23:16 Baso # (Auto) 0.07 K/uL (0-0.2) 11/27/18 23:16 Reticulocyte # 0.26 10^6/uL (0.02-0.10) H 11/27/18 23:16 Absolute Nucleated RBC 0.05 K/uL (0-0) H 11/28/18 06:36 Nucleated RBC % (auto) 0.7 % 11/28/18 06:36 Sodium 137 mmol/L (136-145) 11/28/18 06:36 Potassium 3.5 mmol/L (3.5-5.1) 11/28/18 06:36 Chloride 104 mmol/L (98-107) 11/28/18 06:36 Carbon Dioxide 26 mmol/L (21-32) 11/28/18 06:36 Anion Gap 7.0 (3-11) 11/28/18 06:36 BUN 4 mg/dl (7-18) L 11/28/18 06:36 Creatinine 0.53 mg/dl (0.6-1.2) L 11/28/18 06:36 Est Cr Clr Drug Dosing 164.7 ml/min 11/28/18 06:36 Est GFR ( Amer) > 150.0 11/28/18 06:36 Est GFR (Non-Af Amer) 136.7 11/28/18 06:36 BUN/Creatinine Ratio 8.4 (10-20) L 11/28/18 06:36 Glucose 118 mg/dl (70-99) H 11/28/18 06:36 POC Glucose 108 (70-99) H 11/27/18 22:26 Calcium 8.1 mg/dl (8.5-10.1) L 11/28/18 06:36 Phosphorus 3.6 mg/dl (2.5-4.9) 11/27/18 23:16 Magnesium 1.9 mg/dl (1.8-2.4) 11/27/18 23:16 Total Bilirubin 2.9 mg/dl (0.2-1) H 11/27/18 23:16 AST 63 U/L (15-37) H 11/27/18 23:16 ALT 40 U/L (12-78) 11/27/18 23:16 Alkaline Phosphatase 83 U/L (45-117) 11/27/18 23:16 Total Protein 8.3 gm/dl (6.4-8.2) H 11/27/18 23:16 Albumin 4.2 gm/dl (3.4-5.0) 11/27/18 23:16 Globulin 4.1 gm/dl (2.5-4.0) H 11/27/18 23:16 Albumin/Globulin Ratio 1.0 (0.9-2) 11/27/18 23:16 Urine Creatinine 2 Cancelled 11/28/18 10:28 Urine Opiates Screen Cancelled 11/28/18 10:28 Ur Opiates Confirm Cancelled 11/28/18 10:28 Ur Oxycodone Screen Cancelled 11/28/18 10:28 Ur Methadone, Qual Cancelled 11/28/18 10:28 Ur Methadone Cancelled 11/28/18 10:28 Urine Barbiturates Cancelled 11/28/18 10:28 Ur Barbiturate Confirm Cancelled 11/28/18 10:28 Ur Phencyclidine Scrn Cancelled 11/28/18 10:28 Urine PCP Confirm Cancelled 11/28/18 10:28 Ur Amphetamines Screen Cancelled 11/28/18 10:28 U Amphetamines Confirm Cancelled 11/28/18 10:28 U Benzodiazepines Scrn Cancelled 11/28/18 10:28 U Benzodiazepine Confm Cancelled 11/28/18 10:28 Urine Cocaine Cancelled 11/28/18 10:28 U Cocaine Metab Confirm Cancelled 11/28/18 10:28 U Marijuana (THC) Screen Cancelled 11/28/18 10:28 U Marijuana (THC) Confirm Cancelled 11/28/18 10:28 U THC/Creatinine Ratio Cancelled 11/28/18 10:28 Ur Drug Screen Comment Cancelled 11/28/18 10:28 PG Care Time/CCT Total # of Minutes Spent Total Time Spent with Patient: Total time spent is greater than 50% in coordination of care (as documented) at patient's floor/unit and/or counseling patient: Resident Activity Tracking Resident Involvement: Resident Care Provided Care Provided: Adult Hospital Medicine (1) Sickle cell anemia Sickle-cell associated disorders: with unspecified crisis Qualified Code(s): D57.00 - Hb-SS disease with crisis, unspecified; D57.0 - Hb-SS disease with crisis
[2018-11-28 16:32] LABS: Amphetamines+Metham, Urine Neg (Neg); Barbiturates, Urine Neg (Neg); Benzodiazepine, Urine Pos (Neg); Cocaine, Urine Neg (Neg); MDMA (Ecstacy), Urine Neg (Neg); Methadone, Urine Neg (Neg); Opiate, Urine Neg (Neg); Phencyclidine, Urine Neg (Neg)
[2018-11-29] MEDS: D5W AND 1/2NSS + 20MEQ KCL 20 MEQ/1,000 ML BAG IV SCH ×2 (01:15→09:27)
[2018-11-29 06:23] LABS: Basophils # (auto) 0.04 K/uL (0-0.2); Basophils % (auto) 0.5 %; Eosinophils # (auto) 0.26 K/uL (0-0.5); Eosinophils % (auto) 3.5 %; Hematocrit (blood only) 24.1 % (37-47); Hemoglobin 8.6 g/dL (12.0-16.0); Immature Granulocytes # (auto) 0.02 K/uL (0.00-0.02); Immature Granulocytes % (auto) 0.3 %; Lymphocytes # (auto) 3.01 K/uL (1.2-3.4); Mean Corpuscular Hemoglobin 33.9 pg (25-34); Mean Corpuscular Hgb Conc 35.7 g/dL (32-36); Mean Corpuscular Volume 94.9 fL (80-100); Mean Platelet Volume 9.2 fL (7.4-10.4); Monocytes # (auto) 0.46 K/uL (0.11-0.59); Monocytes % (auto) 6.3 %; Neutrophils # (auto) 3.56 K/uL (1.4-6.5); Neutrophils % (auto) 48.4 %; Nucleated RBC # (auto) 0.05 K/uL (0-0); Nucleated RBC % (auto) 0.7 %; Platelet Count 300 K/uL (130-400); RDW Coefficient of Variation 18.1 % (11.5-14.5); RDW Standard Deviation 62.1 fL (36.4-46.3); Red Blood Count 2.54 M/uL (4.2-5.4); White Blood Count 7.35 K/uL (4.8-10.8)
[2018-11-29 06:57] LABS: Alanine Aminotransferase 37 U/L (12-78); Albumin Level 3.7 gm/dl (3.4-5.0); Aspartate Aminotransferase 54 U/L (15-37); BUN Creatinine Ratio 9.3 (10-20); Blood Urea Nitrogen 5 mg/dl (7-18); Calcium 9.1 mg/dl (8.5-10.1); Carbon Dioxide 25 mmol/L (21-32); Chloride 107 mmol/L (98-107); Creatinine Clr Calc Pharmacy 171.1 ml/min; Est GFR (African American) > 150.0; Est GFR (Non-African American) 138.4; Glucose 100 mg/dl (70-99); Potassium 3.9 mmol/L (3.5-5.1); Sodium 138 mmol/L (136-145)
[2018-11-29 06:59] LABS: Albumin Globulin Ratio 0.9 (0.9-2); Alkaline Phosphatase 73 U/L (45-117); Bilirubin,Total 2.5 mg/dl (0.2-1); Globulin 3.9 gm/dl (2.5-4.0); Total Protein 7.6 gm/dl (6.4-8.2)
[2018-11-29] MEDS: HYDROXYUREA 500 MG CAP PO SCH (07:57)
[2018-11-29] MEDS: FAMOTIDINE 20 MG TAB PO SCH (07:57)
[2018-11-29] MEDS: ENOXAPARIN INJ 40 MG/0.4 ML SYR SQ SCH (09:27)
--- NOTE | 2018-11-29 10:33 | Family Medicine Progress Note ---
Date of Service November 29, 2018 Results & Data Vital Signs (Past 12 Hours) Vital Signs Temp Pulse Resp BP Pulse Ox 11/29/18 07:56 102/65 11/29/18 07:44 36.9 C 61 14 84/48 L 97 11/29/18 04:30 37.0 C 56 L 17 107/60 98 11/28/18 23:27 36.8 C 70 16 126/75 100 PG Care Time/CCT Total # of Minutes Spent Total Time Spent with Patient: Total time spent is greater than 50% in coordination of care (as documented) at patient's floor/unit and/or counseling patient:
--- NOTE | 2018-11-29 11:18 | Neurology Consultation ---
Date of Consultation November 29, 2018 Assessment & Plan (1) Seizure-like activity: (2) Speech abnormality: (3) Sickle cell anemia: Patient has sickle cell anemia with occasional crises. She has been having increasing episodes of eyes rolling back and stuttering speech with still being aware. Seizure disorder is possible although with bilateral symptoms there should be alteration in consciousness (with seizures). Her neurologic examination is unremarkable and an MRI of the brain earlier this week was normal as well. She has no focal signs, meningeal signs, or encephalopathy. Her mood seems reasonable for cannot exclude a depression. Recommendations: 1. An EEG is reasonable but a normal EEG will not rule out seizures. 2. Consider initiating lamotrigine 25 milligrams twice a day and titrating each week (by 25 milligrams twice daily) until 100 milligrams twice daily. 3. Increase activity as able. 4. Treatment of anemia and elevated liver tests as per hospitalist. Overall, I spent a total of 60 minutes with this case including review of records, review of MRI films, direct evaluation patient at bedside, discussing the case with the patient at bedside, and Dr. Shaw, including differential diagnosis and treatment options. History of Present Illness Reason for Consultation: The patient is a 18-year-old, who I was asked to see at the request of Dr. Bailey, for neurologic consultation regarding seizures Requesting Physician: Dr. Bailey Attending Physician: Jamie Shaw MD History of Present Illness Patient has a history of sickle cell anemia with episodes triggered by cold or other temperature changes, stress, or physical exertion. She has been on hydroxyurea. In the spring she had an episode of slurred speech with right arm stiffness lasting 20 minutes. She was evaluated in [place] where she was at school at the time and apparently at [facility] she had a complete evaluation including MRI which was unremarkable. No medication was given her for this spell. Patient started getting episodes where her eyes rolled back and she would stutter. The right upper extremity was not involved with these. These episodes she could not get words out correctly but understood what people were saying to her. These would last anywhere from 5 minutes to 20 minutes. Over the last week they have been more frequent. She was in the hospital earlier this week and had 1 of these episodes. An MRI of the brain was unremarkable. Patient had an episode of whole body shaking November 27. She arrived at the emergency room at 2200 with a temperature 37.0, pulse 70, respiratory rate 16, blood pressure 111/62, and O2 saturation 97 percent. In the emergency room she was described as having stuttering speech. CBC showed anemia. Chem profile should increased bilirubin and AST. These labs have been elevated for the last month or so, staying about the same. CT scan of the head November 27 was unremarkable. She has not had any further episodes or spells since in the hospital. She has no confusion, speech problems, new weakness or numbness of the limbs, or incontinence. She did not bite her tongue. Allergies Allergy/AdvReac Type Severity Reaction Status Date / Time No Known Allergies Allergy Verified 11/28/18 00:40 Home Medications Home Medications Medication Instructions Recorded Confirmed Type cholecalciferol (vitamin D3) 0 unit PO HS 10/26/18 11/28/18 History [Vitamin D3] hydroxyurea 500 mg PO QAM 30 Days #90 cap 11/24/18 11/28/18 Rx oxycodone 5 mg PO Q6H PRN #12 tab 11/24/18 11/28/18 Rx Patient History Medical History Sickle cell anemia (Chronic) Pneumonia Family History Mother Hypertension Father Ulcer Other Family history non-contributory Social History Preferred Language: Frisian Communication Ability: Effective 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 Beliefs That Will Affect Care: None marital status: Single Current Living Situation: Other Current Living Situation Comment: in an apartment with roommates 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 current occupation: [employer] major Other Information That Helps Us Care for You: No Feels Safe at Home: Yes Smoking Status: Never smoker Second Hand Exposure: No ; Hx Alcohol Use: No Hx Substance Use: No Review of Systems Constitutional: + fatigue; no fever and no weakness Eyes: no diplopia, no eye pain and no worsening vision Ear, Nose, Mouth, Throat: no ear pain, no tinnitus, no hearing loss, no dizziness, no snoring, no hoarseness and no dysphagia Respiratory: no cough and no dyspnea Cardiovascular: no chest pain, no palpitations and no lightheadedness Gastrointestinal: no abdominal pain, no nausea and no vomiting Genitourinary: no dysuria, no urinary frequency and no urinary incontinence Musculoskeletal: no back pain, no neck pain, no radicular pain, no joint pain and no myalgia Integumentary: no rash and no lesions Neurologic: no gait abnormality, no localized weakness, no generalized weakness, no tingling, no numbness, no tremor(s), no abnormal movements, no headache(s), no abnormal speech, no confusion and no memory loss Psychiatric: no depression, no irritability, no anxiety, no difficulty concentrating, no confusion and no hallucinations Endocrine: no fatigue and no flushing Hematologic / Lymphatic: no easy bleeding and no easy bruising Allergy / Immunological: no urticaria and no problem reported Physical Exam Physical Exam: The patient is right-handed. The patient is awake, alert, and attentive. Speech is normal without any aphasia or dysarthria. She can name objects, repeat phrases, and has normal spontaneous speech. Mentation and thought processes are intact, with orientation to person, place and time, and normal fund of knowledge. Attention and concentration are normal. Mood and affect are normal and appropriate. General appearance and grooming are normal. Short and long-term memory are intact. The discs are sharp with positive venous pulsations bilaterally. There are no exudates, hemorrhages, or blood vessel changes seen. Pupils are 4 mm bilaterally and reactive to light. Extraocular eye muscles are intact without nystagmus. Visual acuity and visual sharma seem normal grossly to confrontation. There are no deficits to sensation in the face in all 3 distributions of the fifth cranial nerve bilaterally. Corneal reflexes are positive bilaterally. Fa cial strength and symmetry was normal bilaterally. Hearing seems normal to whisper and finger rub bilaterally. Palate moves well without asymmetry. There is normal sternocleidomastoid and trapezius (shoulder shrug) strength bilaterally. Tongue is midline with good strength bilaterally. Neck has a full range of motion without discomfort. There are no cervical bruits bilaterally. There are no cranial or ocular bruits. Heart is without murmur. There is a regular rhythm and rate. Cervical, thoracic, and lumbar spine are nontender to palpation. Gait is narrow based, with good arm swing, turns, and stance. Balance is normal eyes open or closed. With outstretched arms there is no drift. There are no resting, postural, or action tremors. There is no ataxia with finger to nose testing. There is good facility in the hands. No other abnormal involuntary movements are noted. Motor strength is 5/5 diffusely in the arms bilaterally including deltoids, biceps, triceps, brachioradialis, wrist flexors and extensors, residential caregiver, and intrinsic hand muscles. Motor strength is 5/5 diffusely in the legs bilaterally including hip flexors, quadriceps, hamstrings, gastrocnemius, tibialis anterior, tibialis posterior, and Peroneii muscles. Toe extensors are normal and there is good bulk in the extensor digitorum brevis muscles bilaterally. The limbs have good tone without rigidity or spasticity. There is no atrophy noted in the muscles. Muscle bulk is normal, there is no tenderness to palpation, no myotonia to percussion, and no fasciculations seen. Sensory examination is intact to touch and pin throughout all 4 limbs diffusely. Reflexes are 2/4 in the biceps, triceps, brachioradialis, quadriceps, and Achilles tendons bilaterally. There is no clonus bilaterally. Toes are downgoing with plantar stimulation bilaterally. Peripheral pulses are present and of normal quality distally in all 4 limbs. There is no peripheral edema noted in the limbs. Results & Data Vital Signs (Past 12 Hours) Vital Signs Temp Pulse Resp BP Pulse Ox 11/29/18 07:56 102/65 11/29/18 07:44 36.9 C 61 14 84/48 L 97 11/29/18 04:30 37.0 C 56 L 17 107/60 98 11/28/18 23:27 36.8 C 70 16 126/75 100 PG Care Time/CCT Total # of Minutes Spent Total Time Spent with Patient: Total time spent is greater than 50% in coordination of care (as documented) at patient's floor/unit and/or counseling patient: (1) Speech abnormality Speech disturbance type: slurred speech Qualified Code(s): R47.81 - Slurred speech (2) Sickle cell anemia Sickle-cell associated disorders: with unspecified crisis Qualified Code(s): D57.00 - Hb-SS disease with crisis, unspecified; D57.0 - Hb-SS disease with crisis
--- NOTE | 2018-11-29 12:01 | Discharge Summary ---
Date of Service November 29, 2018 Admission HPI Per Admitting Provider 18 y/o female presented to the ED after having a seizure-like episode in which she described having her entire body shaking uncontrollably without loss of consciousness. She reports that she has had episodes of her eyes rolling back in head and episodic stuttering which has been getting worse. She did not loss bowel or bladder control, no post-ictal period, no tongue biting. She has chronic chest pain which she attributes to her sickle cell diagnosis. She did report having a headache this past week, but does not have a headache at this time. She recently started taking hydroxyurea. Admission Exam Per Admitting Provider General- adult female, NAD Head- atraumatic Eyes- PERRL, EOMI, anicteric ENT- oropharynx clear Neck- supple, no JVD, no adenopathy, no thyromegaly. Lungs- clear to auscultation b/l. No R/R/W. Heart- regular rhythm; no murmur, no gallop, no rub appreciated Abdomen- normal bowel sounds, soft, nontender. Extremities- no pretibial edema, no calf tenderness; peripheral pulses intact Neuro- alert, oriented x 3; PERRL, EOMI; grooming assistant II-XII grossly intact, Non-focal. No stuttering with conversation during my exam. Skin- warm & dry Principal Diagnosis Seizure like activity Discharge Exam Constitutional + thin and cooperative Respiratory normal respiratory effort, lungs clear to auscultation Cardiovascular Rate/Rhythm: regular rate and regular rhythm Heart Sounds: + murmur (3/6 systolic murmur that has been previously documented) Extremities: no calf tenderness Gastrointestinal (Abdomen) Inspection/Auscultation: abdomen normal to inspection Percussion/Palpation: abdomen soft; abdomen nontender and no guarding Neurologic PERRL, EOMI, accommodation nl, no face palsy, no dysarthria Speech / Cognition: normal speech Discharge Data Allergies Allergy/AdvReac Type Severity Reaction Status Date / Time No Known Allergies Allergy Verified 11/28/18 00:40 Consultations 11/28/18 00:44 ED Decision to Admit Stat 11/28/18 10:26 Consult Neurology Routine Ordered Studies 11/27/18 23:16 CT head/brain wo con Urgent Hospital Course (1) Seizure-like activity: 18-year-old female with past medical history of sickle cell disease presenting to the hospital via EMS for seizure-like activity in the classroom. She describes an episode of her eyes rolling back into her head, her right leg becoming very tense, followed by spastic shaking of her entire body. She says that this went on for about 30 minutes off and on until the paramedics gave her medication. Upon presentation to the emergency department she received a noncontrast CT scan of the head which was negative for intracranial bleed or abnormalities. Previous admission earlier in the week had shown an MRI that was also unremarkable. Blood work revealed no electrolyte abnormalities or derangements nor urine toxicities that would show a source of the seizure-like activity. As such neurology was consulted for their input. Per neurology's recommendations she was started on Lamictal 25 twice daily. She will continue this for 1 week and then go up to 50 mg twice a day for a week, 75 mg twice a day for the third week, 100 mg twice a day for the fourth week. During her stay her sickle cell pain was well controlled with a single dose of 80 mg of IV morphine in the emergency department as well as 1 dose of 5 mg oxycodone p.o. She was also restarted on her hydroxyurea that she was taking as an outpatient, and was rehydrated with IV fluids. She was instructed to follow-up with Dr. Oquendo the neurologist as well as her primary care provider. (2) Sickle cell crisis: (3) Sickle cell anemia: (4) Dehydration: Total Time Total Time Spent Total Time Spent (In Minutes): See attendings attestation Discharge Plan Discharge Items Patient Disposition: Home - Self-Care Reason For Visit: SEIZURE Discharge Diagnosis: Sickle Cell disease, Seizure-like disorder Condition on Discharge: Good Activity: Resume your previous activity Non-emergency contact: Primary Care Provider Call non-emergency contact if: you have any medication questions and your symptoms worsen Follow-up/Referrals: [facility] [Primary Care Provider] - Zamzam Bailey MD [Resident] - Diet: Regular Addtl Attending Provider Instructions: You were admitted to [facility] after you were brought to the ED by EMS for seizure-like activity. In the ED, you underwent a head CT which showed no acute intracranial changes and no acute head bleed. We monitored your electrolyte levels and blood counts to ensure that there was not a chemical imbalance that was causing the seizures. You were also seen by Dr. Oquendo who was part of the neurology team, who determined that you would benefit from starting Lamictal to control the seizure-like activity and help prevent any further occurances of these symptoms. The lamictal is dosed slowly, so you will start by taking a 25 mg tab twice a day the first week (totaling 50 mg each day). The second week, you will take 2 tabs (50 mg) twice a day totaling 100 mg a day for the whole week. You will continue titrating up the third week, taking 75mg at each dose twice a day, and then finally 100 mg (4 pills) twice a day for the duration of the fourth week. You will also need to follow up with Dr. Oquendo in his office to follow your seizure symptoms and ensure that they are properly managed. You should also follow up with Dr. Bailey or another primary care provider, along with your Master Printer in [place]. Return to the hospital if you have crushing chest pain, extreme shortness of breath, prolonged seizures, or experience loss of consciousness as these may be signs of worsening condition. Pending Studies at Discharge: No Stand-Alone Forms: My [facility] Medications and DC Order Prescriptions: New hydroxyurea 500 mg Capsule 500 mg PO QAM Qty: 30 RF: 0 lamotrigine [Lamictal] 25 mg Tablet 25 mg PO BID 30 Days Qty: 140 RF: 0 Continued cholecalciferol (vitamin D3) [Vitamin D3] 1,000 unit Capsule PO HS RF: 0 hydroxyurea 500 mg Capsule 500 mg PO QAM 30 Days Qty: 90 RF: 0 Discontinued oxycodone 5 mg tablet 5 mg PO Q6H PRN (Reason: pain) Qty: 12 RF: 0 Discharge Orders: Discharge Order (Routine); Ordered 11/29/18 Ordered By: Zamzam Bailey Admission Data Admit Date/Time: 11/28/18 01:07 Attending Provider: Jamie Shaw Admit Provider: Michele Wellington Primary Care Provider: [facility] Other Providers: Michele Wellington ; Zmazam Bailey ; Radhames Oquendo III Other Interventions: Discharge Summary Assessment (RN) Last Done: 11/29/18 13:10 DC Date/Time DO NOT enter until pt leaves facility: 11/29/18 13:36 Supervising Physician Co-Signing Physician Notes Attending attestation Pt seen and examined in concert with Dr. Bailey. In agreement with the documented findings as noted in the resident documentation with any exceptions or additions as noted here. Resting in bed, complaining of mild myalgias 2/2 cold temperature which do not require PRN medication at this time. Tolerated hydration well, no lightheadedness, SOB, cough, numbness/tingling/weakness. On examination, S1/S2 nl RRR no MCG. CTAB. Abd NT/ND BS+ve, CNII-XII grossly intact, reflexes 2+ bilateral patellar. Seizure-like activity - neurology consultation - agree w/ initiation of lamictal @ 25mg BID with weekly increases of 25mg to 100mg total. EEG and follow up with neurology as outpatient. Imaging as noted. Sickle cell anemia w/ crisis - continue hydroxyurea. Has outpatient medication for pain mgmt if needed. Hgb stable Else see resident documentation as noted. Resident Activity Tracking Resident Involvement: Resident Care Provided Care Provided: Adult Hospital Medicine
[2018-11-29] MEDS ORDERED: lamoTRIgine 25 MG TAB PO SCH (12:15)
[2018-12-02 02:46] LABS: 7-Aminoclonaz, Confirm NEGATIVE NG/ML (CUTOFF=25); Hydro-Alp Ur, GC/MS NEGATIVE NG/ML (CUTOFF=25); Hydroxyethylflurazepam, Conf NEGATIVE NG/ML (CUTOFF=50); Hydroxytriazolam NEGATIVE NG/ML (CUTOFF=50); Lorazepam, Ur GC/MS NEGATIVE NG/ML (CUTOFF=50); Nordiazepam, Confirm NEGATIVE NG/ML (CUTOFF=50); Oxazepam Ur, GC/MS NEGATIVE NG/ML (CUTOFF=50); Temazepam, Confirm NEGATIVE NG/ML (CUTOFF=50)
== END 2018-11-29 13:36 | disposition home or self-care (01) ==
LOC: 2E 22:03 → ED 22:03 → SUATTDRO 11-28 01:07 → 2E 11-28 01:54
DX: R56.9 Unspecified convulsions; R47.81 Slurred speech; D57.1 Sickle-cell disease without crisis; E86.0 Dehydration

== ENCOUNTER 2019-01-21 03:18 | Inpatient (IN) ==
[2019-01-21] MEDS ORDERED: MoRPHine SULFATE 4 MG/ML 1 ML CARP\\VIAL IV STA (03:39)
[2019-01-21] MEDS ORDERED: ONDANSETRON INJ 2 MG/ML 2 ML VIAL IV STA (03:39)
[2019-01-21] MEDS ORDERED: SODIUM CHLORIDE 0.9% 1000ML 1,000 ML IV SCH (03:45)
[2019-01-21 03:50] LABS: Basophils # (auto) 0.02 K/uL (0-0.2); Basophils % (auto) 0.2 %; Eosinophils # (auto) 0.02 K/uL (0-0.5); Eosinophils % (auto) 0.2 %; Hematocrit (blood only) 23.2 % (37-47); Hemoglobin 8.5 g/dL (12.0-16.0); Immature Granulocytes # (auto) 0.18 K/uL (0.00-0.02); Immature Granulocytes % (auto) 1.4 %; Lymphocytes # (auto) 2.38 K/uL (1.2-3.4); Lymphocytes % (auto) 18.9 %; Mean Corpuscular Hemoglobin 34.4 pg (25-34); Mean Corpuscular Hgb Conc 36.6 g/dL (32-36); Mean Corpuscular Volume 93.9 fL (80-100); Mean Platelet Volume 9.4 fL (7.4-10.4); Monocytes # (auto) 1.14 K/uL (0.11-0.59); Monocytes % (auto) 9.1 %; Neutrophils # (auto) 8.82 K/uL (1.4-6.5); Neutrophils % (auto) 70.2 %; Nucleated RBC # (auto) 0.22 K/uL (0-0); Nucleated RBC % (auto) 1.8 %; Platelet Count 385 K/uL (130-400); RDW Standard Deviation 72.7 fL (36.4-46.3); Red Blood Count 2.47 M/uL (4.2-5.4); White Blood Count 12.56 K/uL (4.8-10.8)
--- NOTE | 2019-01-21 04:03 | Emergency Department Note ---
History of Present Illness General Chief complaint: Abdominal Pain Stated complaint: ABD PAIN Time Seen by Provider: 01/21/19 03:29 History of Present Illness Maximum Pain Intensity: 10 This is a 18-year-old female presenting to the emergency department complaining of full body pain. The patient was just seen at this facility a few hours ago for possible sickle cell crisis. She was given IV hydration and IV narcotics at that visit, and was comfortably sleeping just prior to being discharged home. The patient states that she went home and almost immediately her pain returned. The patient now returns for her symptoms. She does not report any fevers or chills. She complains of pain everywhere that she rates a 10/10. Home Medications Home Medications Medication Instructions Recorded Confirmed Type escitalopram oxalate 10 mg PO DAILY 01/04/19 01/21/19 History hydroxyurea 500 mg PO DAILY 01/04/19 01/21/19 History risperidone 1 mg PO DAILY 01/04/19 01/21/19 History lamotrigine 50 mg PO BID 01/20/19 01/21/19 History Allergies Allergy/AdvReac Type Severity Reaction Status Date / Time No Known Allergies Allergy Verified 01/20/19 23:19 Past Med/Surg History Medical History Pneumonia Seizure-like activity Sickle cell anemia (Chronic) Sickle cell crisis (Acute) Surgical History No pertinent past surgical history Family History Mother Hypertension Father Ulcer Other Family history non-contributory Social History Preferred Language: Syriac Communication Ability: Effective Physician Assistant Required: No Beliefs That Will Affect Care: None marital status: Single Current Living Situation: Other Current Living Situation Comment: apartment with roommates 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 current occupation: [employer] major Other Information That Helps Us Care for You: No Feels Safe at Home: Yes Smoking Status: Never smoker Second Hand Exposure: No ; Hx Alcohol Use: No Hx Substance Use: No Review of Systems A total of 10 systems reviewed and were otherwise negative Physical Exam Vital Signs Vital Signs - 24 hr 01/21/19 03:22 01/21/19 04:06 Temperature 36.7 C Temperature Source Oral Pulse Rate 95 H Respiratory Rate 26 H Respiratory Effort / Characteristics Non-Labored Spontaneous Respiratory Depth Normal Blood Pressure 138/89 Blood Pressure Mean 105 Pulse Oximetry 96 Oxygen Delivery Method Room Air Room Air Sepsis Recent Fever Within 48 Hours No Sepsis Action Taken by Nursing No Action Required VITALS: Vitals are noted on the nurse's note and reviewed by myself. Vital signs stable. GENERAL: Well-developed, well-nourished, black female who is crying on my presentation to the room. HEAD: Normocephalic atraumatic. NECK: Supple without nuchal rigidity. No lymphadenopathy. No thyromegaly. Cervical spine is nontender. HEART: Regular rate and rhythm without murmurs gallops or rubs. LUNGS: Clear to auscultation bilaterally without wheezes, rales or rhonchi. No retractions or accessory muscle use. ABDOMEN: Positive normal bowel sounds x 4. Soft, nontender, without masses or organomegaly. No guarding or rebound tenderness. MUSCULOSKELETAL: No muscle atrophy, erythema, or edema noted. Full range of motion in all extremities. NEURO: Patient was alert and oriented to person place and time. CN II through XII grossly intact. SKIN: The skin was without rashes, erythema, edema, or bruising. Capillary refill less than 2 seconds. Course Administered Medications Acetaminophen (Tylenol) 650 mg PO Q4H PRN PRN Reason: pain/fever Stop: 02/20/19 05:04 Last Admin: 01/21/19 05:50 Dose: 650 mg Documented by: [id number] Sodium Chloride (Nss 1000ml) 1,000 mls @ 200 mls/hr IV .Q5H [facility] Stop: 02/20/19 05:04 Last Admin: 01/21/19 05:17 Dose: 200 mls/hr Documented by: [id number] Discontinued Medications Hydromorphone HCl (Dilaudid) 0.5 mg IV NOW [facility] Stop: 01/21/19 04:16 Last Admin: 01/21/19 04:18 Dose: 0.5 mg Documented by: [id number] Sodium Chloride (Nss 1000ml) 1,000 mls @ 999 mls/hr IV .Q1H1M [facility] Stop: 01/21/19 04:45 Last Infusion: 01/21/19 05:09 Dose: 0 mls/hr Documented by: [id number] Admin: 01/21/19 03:48 Dose: 999 mls/hr Documented by: [id number] Morphine Sulfate (Morphine Sulfate) 4 mg IV NOW [facility] Stop: 01/21/19 03:40 Last Admin: 01/21/19 03:48 Dose: 4 mg Documented by: [id number] Ondansetron HCl (Zofran) 4 mg IV NOW STA Stop: 01/21/19 03:40 Last Admin: 01/21/19 03:48 Dose: 4 mg Documented by: [id number] Medical Decision Making Differential Diagnosis Differential diagnosis: Etiologies such as sickle cell crisis, chronic pain, malingering, biliary colic, cholecystitis, hepatitis, pancreatitis, cardiac disease, pancreatitis, ga stritis, peptic ulcer disease, appendicitis, cystitis, diverticulitis, mesenteric ischemia, inflammatory bowel disease, ileus, bowel obstruction, testicular/adnexal torsion, aortic pathology, shingles, as well as others were considered Laboratory Data Result diagrams: 01/21/19 03:38 01/21/19 03:38 Lab Results 01/21/19 01/21/19 Range/Units 03:38 03:38 WBC 12.56 H (4.8-10.8) K/uL RBC 2.47 L (4.2-5.4) M/uL Hgb 8.5 L (12.0-16.0) g/dL Hct 23.2 L (37-47) % MCV 93.9 (80-100) fL MCH 34.4 H (25-34) pg MCHC 36.6 H (32-36) g/dL RDW Std Deviation 72.7 H (36.4-46.3) fL RDW Coeff of Nando 22.0 H (11.5-14.5) % Plt Count 385 (130-400) K/uL MPV 9.4 (7.4-10.4) fL Immature Gran % (Auto) 1.4 % Neut % (Auto) 70.2 % Lymph % (Auto) 18.9 % [place] % (Auto) 9.1 % Eos % (Auto) 0.2 % Baso % (Auto) 0.2 % Reticulocyte % (Auto) 14.9 H (0.5-2.0) % Immature Gran # (Auto) 0.18 H (0.00-0.02) K/uL Neut # (Auto) 8.82 H (1.4-6.5) K/uL Lymph # (Auto) 2.38 (1.2-3.4) K/uL [place] # (Auto) 1.14 H (0.11-0.59) K/uL Eos # (Auto) 0.02 (0-0.5) K/uL Baso # (Auto) 0.02 (0-0.2) K/uL Reticulocyte # 0.35 H (0.02-0.10) 10^6/uL Absolute Nucleated RBC 0.22 H (0-0) K/uL Nucleated RBC % (auto) 1.8 % Polychromasia 1+ Anisocytosis Present Sickle Cells 1+ Target Cells 2+ Sodium 138 (136-145) mmol/L Potassium 3.3 L (3.5-5.1) mmol/L Chloride 107 (98-107) mmol/L Carbon Dioxide 25 (21-32) mmol/L Anion Gap 6.0 (3-11) BUN 4 L (7-18) mg/dl Creatinine 0.65 (0.6-1.2) mg/dl Est Cr Clr Drug Dosing 134.3 ml/min Est GFR ( Amer) 148.1 Est GFR (Non-Af Amer) 127.8 BUN/Creatinine Ratio 6.3 L (10-20) Glucose 131 H (70-99) mg/dl Calcium 8.9 (8.5-10.1) mg/dl Total Bilirubin 2.1 H (0.2-1) mg/dl AST 55 H (15-37) U/L ALT 30 (12-78) U/L Alkaline Phosphatase 80 (45-117) U/L Total Creatine Kinase 62 (26-192) U/L Troponin I 0.018 (0-0.045) ng/ml Total Protein 8.1 (6.4-8.2) gm/dl Albumin 4.0 (3.4-5.0) gm/dl Globulin 4.1 H (2.5-4.0) gm/dl Albumin/Globulin Ratio 1.0 (0.9-2) MDM Narrative Physical exam and history were performed. Nursing notes, EMR, and Medication List were personally reviewed. Patient appears to have reports of full body pain and being in sickle cell crisis. IV access was established and labs were obtained. The patient was given IV fluids, IV morphine, and IV Zofran. The patient blood work is as above and was reviewed. She does have a slightly elevated white blood cell count of 12.56. She is chronically anemic and this is essentially unchanged. Reticulocyte number is elevated at 0.35, which is slightly above her baseline. Troponin is not elevated. Overall the patient has had 2 visits in several hours to this department for her symptoms. She did feel well for discharge previously, but now would like to stay in the hospital. The case was discussed with the on-call hospitalist who agreed to evaluate the patient here in the ER. Please see their dictation for further patient course, plan, and disposition. The chart was completed utilizing [employer] Speech Voice Recognition Software. Grammatical errors, random word insertions, pronoun errors, and incomplete sentences are an occasional consequence of this system due to software limitations, ambient noise, and hardware issues. Any formal questions or concerns about the content, text, or information contained within the body of this dictation should be directly addressed to the provider for clarification. . Impression & Plan Sickle cell crisis, Generalized pain Discharge Plan Visit Data *Final* Discharge Date/Time: 01/21/19 04:48 Chief Complaint: Abdominal Pain Stated Complaint: ABD PAIN ED Provider: Julissa Barton ED Midlevel Provider: Jp Toth Discharge Problem: Sickle cell crisis, Generalized pain Patient Disposition: Admitted As Inpatient Discharge Instructions Interventions: ED Discharge Assessment Last Done: 01/21/19 04:48
[2019-01-21 04:09] LABS: BUN Creatinine Ratio 6.3 (10-20); Calcium 8.9 mg/dl (8.5-10.1); Creatinine Clr Calc Pharmacy 134.3 ml/min; Est GFR (African American) 148.1; Est GFR (Non-African American) 127.8; Potassium 3.3 mmol/L (3.5-5.1)
[2019-01-21 04:13] LABS: Bilirubin,Total 2.1 mg/dl (0.2-1); Globulin 4.1 gm/dl (2.5-4.0); Total Protein 8.1 gm/dl (6.4-8.2); Troponin I 0.018 ng/ml (0-0.045)
[2019-01-21] MEDS ORDERED: HYDROmorphone INJ 0.5 MG/0.5 ML SYR IV STA ×3 (04:15→07:53)
[2019-01-21 04:28] LABS: Reticulocyte % 14.9 % (0.5-2.0); Reticulocytes # 0.35 10^6/uL (0.02-0.10)
[2019-01-21 04:29] LABS: Anisocytosis Present; Polychromasia 1+; Sickle Cells 1+; Target Cells 2+
--- NOTE | 2019-01-21 04:30 | History & Physical Report ---
Date of Service January 21, 2019 Assessment & Plan (1) Sickle cell anemia: 18yo F H sickle cell anemia admitted for sickle cell crisis. Sickle cell crisis -Pain control with morphine prn -IVF, NSS @ 200cc/hr -Cont hydroxyurea; attempt to arrange outpatient follow up with hematology. Had previously accepted f/u with Dr. Dietrich locally. -Zofran for nausea -Holding lexapro due to zofran use DVTP: lovenox Code: full Dispo: admit to med/surg (2) Sickle cell crisis: (3) Generalized pain: History of Present Illness Chief Complaint: Generalized body pain Primary Care Provider: NO PCP Patient is a 18yo F [facility] sickle cell disease, seizure disorder, anxiety/depression who presents with concerns of sickle cell crisis/generalized severe body pains. She states she gets crises every 2 months or so. Pt last admitted to this facility 11/28-. She states she has been having increasing worsening body pain for 2 days. She presented to the ER earlier this evening, was given IVF, pain meds, and a home pain pack, not wanting to be admitted, but notes that when she went home, she could not sleep and the pain just got increasingly worse. She states she has been taking her hydroxyurea. She has not followed up with her pest control applicator recently (she had an appointment scheduled for 01/15). Allergies Allergy/AdvReac Type Severity Reaction Status Date / Time No Known Allergies Allergy Verified 01/20/19 23:19 Home Medications Home Medications Medication Instructions Recorded Confirmed Type escitalopram oxalate 10 mg PO DAILY 01/04/19 01/21/19 History hydroxyurea 500 mg PO DAILY 01/04/19 01/21/19 History risperidone 1 mg PO DAILY 01/04/19 01/21/19 History lamotrigine 50 mg PO BID 01/20/19 01/21/19 History Past Med/Surg History Medical History Pneumonia Seizure-like activity Sickle cell anemia (Chronic) Sickle cell crisis (Acute) Surgical History No pertinent past surgical history Family History Mother Hypertension Father Ulcer Other Family history non-contributory Social History Preferred Language: Portuguese Communication Ability: Effective Knit Goods Mender Required: No Beliefs That Will Affect Care: None marital status: Single Current Living Situation: Other Current Living Situation Comment: apartment with roommates 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 current occupation: [employer] major Other Information That Helps Us Care for You: No Feels Safe at Home: Yes Smoking Status: Never smoker Second Hand Exposure: No ; Hx Alcohol Use: No Hx Substance Use: No Review of Systems Review of Systems: All systems reviewed & are unremarkable except as noted in HPI & below Constitutional: + body aches Musculoskeletal: + joint pain, + stiffness, + myalgia and + body aches Physical Exam Constitutional: WD/WN, vitals as above + acute distress and + ill appearing Patient shaking and crying on assessment. Respiratory: normal respiratory effort, lungs clear to auscultation Cardiovascular: RRR, no murmur, no edema Gastrointestinal (Abdomen): normal bowel sounds, soft, nontender, no hepat osplenomegaly Skin: no rashes, warm and dry Neurologic: PERRL, EOMI, accommodation nl, no face palsy, no dysarthria Psychiatric: Orientation: alert and oriented x 3 Results & Data Vital Signs (Past 12 Hours) Vital Signs Temp Pulse Resp BP Pulse Ox 01/21/19 03:22 98.1 F 95 H 26 H 138/89 96 Laboratory Results 01/21/19 01/21/19 Range/Units 03:38 03:38 WBC 12.56 H (4.8-10.8) K/uL RBC 2.47 L (4.2-5.4) M/uL Hgb 8.5 L (12.0-16.0) g/dL Hct 23.2 L (37-47) % MCV 93.9 (80-100) fL MCH 34.4 H (25-34) pg MCHC 36.6 H (32-36) g/dL RDW Std Deviation 72.7 H (36.4-46.3) fL RDW Coeff of Nando 22.0 H (11.5-14.5) % Plt Count 385 (130-400) K/uL MPV 9.4 (7.4-10.4) fL Immature Gran % (Auto) 1.4 % Neut % (Auto) 70.2 % Lymph % (Auto) 18.9 % [place] % (Auto) 9.1 % Eos % (Auto) 0.2 % Baso % (Auto) 0.2 % Reticulocyte % (Auto) 14.9 H (0.5-2.0) % Immature Gran # (Auto) 0.18 H (0.00-0.02) K/uL Neut # (Auto) 8.82 H (1.4-6.5) K/uL Lymph # (Auto) 2.38 (1.2-3.4) K/uL [place] # (Auto) 1.14 H (0.11-0.59) K/uL Eos # (Auto) 0.02 (0-0.5) K/uL Baso # (Auto) 0.02 (0-0.2) K/uL Reticulocyte # 0.35 H (0.02-0.10) 10^6/uL Absolute Nucleated RBC 0.22 H (0-0) K/uL Nucleated RBC % (auto) 1.8 % Polychromasia 1+ Anisocytosis Present Sickle Cells 1+ Target Cells 2+ Sodium 138 (136-145) mmol/L Potassium 3.3 L (3.5-5.1) mmol/L Chloride 107 (98-107) mmol/L Carbon Dioxide 25 (21-32) mmol/L Anion Gap 6.0 (3-11) BUN 4 L (7-18) mg/dl Creatinine 0.65 (0.6-1.2) mg/dl Est Cr Clr Drug Dosing 134.3 ml/min Est GFR ( Amer) 148.1 Est GFR (Non-Af Amer) 127.8 BUN/Creatinine Ratio 6.3 L (10-20) Glucose 131 H (70-99) mg/dl Calcium 8.9 (8.5-10.1) mg/dl Total Bilirubin 2.1 H (0.2-1) mg/dl AST 55 H (15-37) U/L ALT 30 (12-78) U/L Alkaline Phosphatase 80 (45-117) U/L Total Creatine Kinase 62 (26-192) U/L Troponin I 0.018 (0-0.045) ng/ml Total Protein 8.1 (6.4-8.2) gm/dl Albumin 4.0 (3.4-5.0) gm/dl Globulin 4.1 H (2.5-4.0) gm/dl Albumin/Globulin Ratio 1.0 (0.9-2) Code Status & VTE Plan Code Status Full VTE Prophylaxis Plan VTE Prophylaxis will be ordered: Yes Supervising Physician Co-Signing Physician Notes Patient was seen and examined by me personally. I reviewed the chart, the orders and discussed the case in detail with Dr. Tiana Hernandez MD . I read this H&P and agree with its contents to entirety. Resident Activity Tracking Resident Involvement: Resident Care Provided Care Provided: Adult Hospital Medicine (1) Sickle cell anemia Sickle-cell associated disorders: with unspecified crisis Qualified Code(s): D57.00 - Hb-SS disease with crisis, unspecified
[2019-01-21] MEDS ORDERED: MAGNESIUM HYDROXIDE SUSP 30 ML UDC PO PRN (05:05)
[2019-01-21] MEDS ORDERED: ALUMINUM/MAGNESIUM SUSP 30 ML UDC PO PRN (05:05)
[2019-01-21] MEDS ORDERED: POLYETHYLENE (MIRALAX) 17 GM PACK PO PRN (05:05)
[2019-01-21] MEDS: SODIUM CHLORIDE 0.9% 1000ML 1,000 ML IV SCH ×4 (05:17→22:03)
[2019-01-21] MEDS: ACETAMINOPHEN 325 MG TAB PO PRN (05:50)
--- NOTE | 2019-01-21 07:14 | Billing Data ---
Coding Level of Care Code 65966 Initial Inpt Care Lvl 2
[2019-01-21 07:23] LABS: Appearance Urine Clear (Clear); Bacteria Urine Automated Negative (Negative); Bilirubin Urine Negative (Negative); Blood Urine 1+ (Negative); Color Urine Yellow; Glucose Urine UA Negative (Negative); Ketones Urine Negative (Negative); Leukocyte Esterase Urine Negative (Negative); Nitrite Urine Negative (Negative); Protein Urine Negative (Negative); Urobilinogen Urine Negative (Negative); pH Urine 6.5 (4.5-7.5)
[2019-01-21 08:00] LABS: Amphetamines+Metham, Urine Neg (Neg); Barbiturates, Urine Neg (Neg); Benzodiazepine, Urine Neg (Neg); Cocaine, Urine Neg (Neg); MDMA (Ecstacy), Urine Neg (Neg); Methadone, Urine Neg (Neg); Opiate, Urine Pos (Neg); Phencyclidine, Urine Neg (Neg)
[2019-01-21] MEDS: ONDANSETRON INJ 2 MG/ML 2 ML VIAL IV PRN (08:07)
[2019-01-21] MEDS: lamoTRIgine 25 MG TAB PO SCH ×2 (09:27→21:22)
[2019-01-21] MEDS: ENOXAPARIN INJ 40 MG/0.4 ML SYR SQ SCH (09:28)
[2019-01-21] MEDS: risperiDONE 1 MG TABLET PO SCH (09:28)
[2019-01-21] MEDS: HYDROXYUREA 500 MG CAP PO SCH (09:28)
--- NOTE | 2019-01-21 09:28 | Hospitalist Progress Note ---
Date of Service January 21, 2019 Assessment & Plan (1) Sickle cell anemia: 18yo F PMH sickle cell anemia, pseudo-seizures admitted for sickle cell crisis. Sickle cell crisis - Pain control with morphine prn - received 0.5 dilaudid at 4 AM in ED and 0.5 at 8 AM on floor -IVF, NSS @ 200cc/hr -Cont hydroxyurea -Zofran for nausea - workup for inciting event for crisis - UDS negative except for opiates received in ED - UA +blood, epithelial and WBC, no LE or nitrites Hx seizure like activity - continue lamotrigine 50 mg PO BID FEN/GI: full diet as tolerated DVTP: lovenox Code: full Dispo: admit to med/surg (2) Sickle cell crisis: (3) Generalized pain: Supervising Physician Co-Signing Physician Notes Attending attestation Pt seen and examined in concert with Dr. Bailey. In agreement with the documented findings as noted in the resident documentation with any exceptions or additions as noted here. On frequent re-evaluation, patient sleeping comfortably in bed hours following pain medication. On waking, delayed complaints of diffuse aching pain without tears or change in VS. Tolerating hydration well, pain medication working well when requested. On examination, S1/S2 nl RRR no MCG. CTAB. Abd NT/ND BS+ve Sickle cell disease with crisis - continue hydration and pain mgmt. Continue hydroxyurea. Potential temperature related flare v. stress from finals next week (has happened around deadlines in the past) Else see resident documentation as noted. Subjective 18 yo F with PMH of sickle cell and pseudo-seizures who presented to the ED for sickle cell crisis. She describe pain all over her body, says that she has not been hydrating well at home and has been very stressed out about finals coming up. After she asked the nursing staff for additional sedatives after receiving dilaudid twice, i was concerned for her having underlying symptoms of depression. The ensuing conversation revealed that she has thoughts about hurting herself multiple times a day and multiple days a week. She has previously attempted suicide a year ago by taking 3 tylenols. She does not have a firm plan to follow through on but thinks she would commit suicide by pills. She does follow with a local psychiatrist and recently stopped taking risperidone and started taking lexapro. She attests to having episodes where she does not feel the need to sleep and stays up till 9 am, or spends money on a multitude of small impulse purchases rather than a few large ones. She denies any family history of mental illness or mood disorder to her knowledge. Review of Systems Constitutional: + body aches Respiratory: no cough and no hemoptysis Cardiovascular: + chest pain Musculoskeletal: + joint pain, + stiffness, + myalgia and + body aches Physical Exam Constitutional: laying in bed asleep and comfortable until aroused. Doesn't open eyes for conversation. Neck: normal visual inspection Respiratory: normal respiratory effort and able to speak in complete sentences; no respiratory distress, no labored breathing, no retractions, no cough and no audible wheezes Auscultation: lungs clear to auscultation bilaterally; no crackles, no rales, no rhonchi and no wheezes Cardiovascular: Rate/Rhythm: regular rate and regular rhythm Heart Sounds: normal S1 and normal S2; no gallop, no murmur and no cardiac rub Vessels: posterior tibial pulses present Extremities: no pedal edema and no edema Results & Data Vital Signs (Past 12 Hours) Vital Signs Temp Pulse Pulse Resp BP BP Pulse Ox 01/21/19 07:00 36.9 C 76 18 118/73 94 01/21/19 05:09 36.7 C 57 L 18 112/57 L 92 01/21/19 03:22 36.7 C 95 H 26 H 138/89 96 01/21/19 01/21/19 01/21/19 Range/Units 06:52 06:52 06:52 WBC (4.8-10.8) K/uL RBC (4.2-5.4) M/uL Hgb (12.0-16.0) g/dL Hct (37-47) % MCV (80-100) fL MCH (25-34) pg MCHC (32-36) g/dL RDW Std Deviation (36.4-46.3) fL RDW Coeff of Nando (11.5-14.5) % Plt Count (130-400) K/uL MPV (7.4-10.4) fL Immature Gran % (Auto) % Neut % (Auto) % Lymph % (Auto) % [place] % (Auto) % Eos % (Auto) % Baso % (Auto) % Reticulocyte % (Auto) (0.5-2.0) % Immature Gran # (Auto) (0.00-0.02) K/uL Neut # (Auto) (1.4-6.5) K/uL Lymph # (Auto) (1.2-3.4) K/uL [place] # (Auto) (0.11-0.59) K/uL Eos # (Auto) (0-0.5) K/uL Baso # (Auto) (0-0.2) K/uL Reticulocyte # (0.02-0.10) 10^6/uL Absolute Nucleated RBC (0-0) K/uL Nucleated RBC % (auto) % Polychromasia Anisocytosis Sickle Cells Target Cells Sodium (136-145) mmol/L Potassium (3.5-5.1) mmol/L Chloride (98-107) mmol/L Carbon Dioxide (21-32) mmol/L Anion Gap (3-11) BUN (7-18) mg/dl Creatinine (0.6-1.2) mg/dl Est Cr Clr Drug Dosing ml/min Est GFR ( Amer) Est GFR (Non-Af Amer) BUN/Creatinine Ratio (10-20) Glucose (70-99) mg/dl Calcium (8.5-10.1) mg/dl Total Bilirubin (0.2-1) mg/dl AST (15-37) U/L ALT (12-78) U/L Alkaline Phosphatase (45-117) U/L Total Creatine Kinase (26-192) U/L Troponin I (0-0.045) ng/ml Total Protein (6.4-8.2) gm/dl Albumin (3.4-5.0) gm/dl Globulin (2.5-4.0) gm/dl Albumin/Globulin Ratio (0.9-2) Urine Color Yellow Urine Appearance Clear (Clear) Urine pH 6.5 (4.5-7.5) Ur Specific [place] 1.010 (1.000-1.030) Urine Protein Negative (Negative) Urine Glucose (UA) Negative (Negative) Urine Ketones Negative (Negative) Urine Blood 1+ H (Negative) Urine Nitrite Negative (Negative) Urine Bilirubin Negative (Negative) Urine Urobilinogen Negative (Negative) Ur Leukocyte Esterase Negative (Negative) Urine WBC (Auto) 1-5 (0-5) /hpf Urine RBC (Auto) 5-10 H (0-4) /hpf U Hyaline Cast (Auto) 1-5 (0-5) /lpf U Epithel Cells (Auto) 10-20 H (0-5) /lpf Urine Bacteria (Auto) Negative (Negative) Urine Opiates Screen Pos H (Neg) U Codeine Confrm GC/MS Pending Ur Morphine (GC/MS) Pending Ur Hydrocodone (GC/MS) Pending Ur Norhydrocodone Pending Ur Noroxycodone Pending Urine Oxycodone (GC/MS) Pending U Oxymorphone GC/MS Pending Ur Methadone, Qual Neg (Neg) Ur Hydromorphone (GC/MS) Pending Urine Barbiturates Neg (Neg) Ur Phencyclidine (PCP) Neg (Neg) U Amphetamin/Meth Scrn Neg (Neg) MDMA (Ecstasy) Screen Neg (Neg) U Benzodiazepines Scrn Neg (Neg) Ur Cocaine Metabolite Neg (Neg) U Marijuana (THC) Screen Neg (Neg) Drug Screen Comment Pending 01/21/19 01/21/19 Range/Units 03:38 03:38 WBC 12.56 H (4.8-10.8) K/uL RBC 2.47 L (4.2-5.4) M/uL Hgb 8.5 L (12.0-16.0) g/dL Hct 23.2 L (37-47) % MCV 93.9 (80-100) fL MCH 34.4 H (25-34) pg MCHC 36.6 H (32-36) g/dL RDW Std Deviation 72.7 H (36.4-46.3) fL RDW Coeff of Nadno 22.0 H (11.5-14.5) % Plt Count 385 (130-400) K/uL MPV 9.4 (7.4-10.4) fL Immature Gran % (Auto) 1.4 % Neut % (Auto) 70.2 % Lymph % (Auto) 18.9 % [place] % (Auto) 9.1 % Eos % (Auto) 0.2 % Baso % (Auto) 0.2 % Reticulocyte % (Auto) 14.9 H (0.5-2.0) % Immature Gran # (Auto) 0.18 H (0.00-0.02) K/uL Neut # (Auto) 8.82 H (1.4-6.5) K/uL Lymph # (Auto) 2.38 (1.2-3.4) K/uL [place] # (Auto) 1.14 H (0.11-0.59) K/uL Eos # (Auto) 0.02 (0-0.5) K/uL Baso # (Auto) 0.02 (0-0.2) K/uL Reticulocyte # 0.35 H (0.02-0.10) 10^6/uL Absolute Nucleated RBC 0.22 H (0-0) K/uL Nucleated RBC % (auto) 1.8 % Polychromasia 1+ Anisocytosis Present Sickle Cells 1+ Target Cells 2+ Sodium 138 (136-145) mmol/L Potassium 3.3 L (3.5-5.1) mmol/L Chloride 107 (98-107) mmol/L Carbon Dioxide 25 (21-32) mmol/L Anion Gap 6.0 (3-11) BUN 4 L (7-18) mg/dl Creatinine 0.65 (0.6-1.2) mg/dl Est Cr Clr Drug Dosing 134.3 ml/min Est GFR ( Amer) 148.1 Est GFR (Non-Af Amer) 127.8 BUN/Creatinine Ratio 6.3 L (10-20) Glucose 131 H (70-99) mg/dl Calcium 8.9 (8.5-10.1) mg/dl Total Bilirubin 2.1 H (0.2-1) mg/dl AST 55 H (15-37) U/L ALT 30 (12-78) U/L Alkaline Phosphatase 80 (45-117) U/L Total Creatine Kinase 62 (26-192) U/L Troponin I 0.018 (0-0.045) ng/ml Total Protein 8.1 (6.4-8.2) gm/dl Albumin 4.0 (3.4-5.0) gm/dl Globulin 4.1 H (2.5-4.0) gm/dl Albumin/Globulin Ratio 1.0 (0.9-2) Urine Color Urine Appearance (Clear) Urine pH (4.5-7.5) Ur Specific [place] (1.000-1.030) Urine Protein (Negative) Urine Glucose (UA) (Negative) Urine Ketones (Negative) Urine Blood (Negative) Urine Nitrite (Negative) Urine Bilirubin (Negative) Urine Urobilinogen (Negative) Ur Leukocyte Esterase (Negative) Urine WBC (Auto) (0-5) /hpf Urine RBC (Auto) (0-4) /hpf U Hyaline Cast (Auto) (0-5) /lpf U Epithel Cells (Auto) (0-5) /lpf Urine Bacteria (Auto) (Negative) Urine Opiates Screen (Neg) U Codeine Confrm GC/MS Ur Morphine (GC/MS) Ur Hydrocodone (GC/MS) Ur Norhydrocodone Ur Noroxycodone Urine Oxycodone (GC/MS) U Oxymorphone GC/MS Ur Methadone, Qual (Neg) Ur Hydromorphone (GC/MS) Urine Barbiturates (Neg) Ur Phencyclidine (PCP) (Neg) U Amphetamin/Meth Scrn (Neg) MDMA (Ecstasy) Screen (Neg) U Benzodiazepines Scrn (Neg) Ur Cocaine Metabolite (Neg) U Marijuana (THC) Screen (Neg) Drug Screen Comment Resident Activity Tracking Resident Involvement: Resident Care Provided Care Provided: Adult Hospital Medicine (1) Sickle cell anemia Sickle-cell associated disorders: with unspecified crisis Qualified Code(s): D57.00 - Hb-SS disease with crisis, unspecified
[2019-01-21] MEDS: HYDROmorphone INJ 0.5 MG/0.5 ML SYR IV PRN ×3 (12:34→23:11)
[2019-01-21] MEDS: MoRPHine SULFATE 4 MG/ML 1 ML CARP\\VIAL IV PRN ×2 (16:01→21:21)
[2019-01-22] MEDS: MoRPHine SULFATE 4 MG/ML 1 ML CARP\\VIAL IV PRN ×5 (00:52→23:22)
[2019-01-22] MEDS: HYDROmorphone INJ 0.5 MG/0.5 ML SYR IV PRN ×4 (03:23→20:19)
[2019-01-22] MEDS: SODIUM CHLORIDE 0.9% 1000ML 1,000 ML IV SCH ×4 (03:23→18:01)
[2019-01-22] MEDS: ESCITALOPRAM OXALATE 10 MG TAB PO SCH (07:55)
[2019-01-22] MEDS: lamoTRIgine 25 MG TAB PO SCH ×2 (07:55→20:20)
[2019-01-22] MEDS: HYDROXYUREA 500 MG CAP PO SCH (07:56)
[2019-01-22] MEDS: risperiDONE 1 MG TABLET PO SCH (08:04)
[2019-01-22] MEDS: ENOXAPARIN INJ 40 MG/0.4 ML SYR SQ SCH (08:05)
--- NOTE | 2019-01-22 08:21 | Hospitalist Progress Note ---
Date of Service January 22, 2019 Assessment & Plan (1) Sickle cell anemia: 18yo F PMH sickle cell anemia, pseudo-seizures admitted for sickle cell crisis. Sickle cell crisis - Pain control with morphine 4 mg IV Q4H, Dilaudid 0.5 mg IV Q4H PRN - has been asking for and receiving pain medication as scheduled every 4 hours -IVF 1/2 NS @ 200cc/hr per guidelines -Cont hydroxyurea -Zofran for nausea - workup for inciting event for crisis - UDS negative except for opiates received in ED - UA +blood, epithelial and WBC, no LE or nitrites Hx seizure like activity - continue lamotrigine 50 mg PO BID Depression - continue home 10mg lexapro FEN/GI: full diet as tolerated DVTP: lovenox Code: full Dispo: admit to med/surg (2) Sickle cell crisis: (3) Generalized pain: Supervising Physician Co-Signing Physician Notes Attending attestation I saw the patient with the resident physician and confirmed amaro portions of the history and physical examination. The patient is sleeping but awakens to my voice. She tells me that she feels much better today compared to yesterday. In categorizing this flare/crisis in comparison to her previous, this hospitalization is a moderate flare for her - she has had both less intense and more intense crises. Blood pressure 106/66, pulse 82. She is having on a percent on room air. She is afebrile Her abdomen is soft and nontender Hemoglobin stable at 8.5. Impression: Acute sickle cell crises, improving Plan: Continue IV fluids, hydroxyurea, and as needed medications for pain and nausea Subjective Sleeping comfortably in bed this AM when I walked in the room. Still attests to having pain all over her body, says it is getting a little bit better with treatment. Review of Systems Constitutional: no fever, no chills, no body aches and no fatigue Respiratory: no cough and no dyspnea Cardiovascular: no chest pain, no dyspnea and no edema Gastrointestinal: no abdominal pain, no nausea, no vomiting, no constipation and no diarrhea/loose stools Genitourinary: no dysuria Physical Exam Neck: normal visual inspection Respiratory: normal respiratory effort and able to speak in complete sentences; no respiratory distress, no labored breathing, no retractions, no cough and no audible wheezes Auscultation: lungs clear to auscultation bilaterally; no crackles, no rales, no rhonchi and no wheezes Cardiovascular: Rate/Rhythm: regular rate and regular rhythm Heart Sounds: normal S1 and normal S2; no gallop, no murmur and no cardiac rub Vessels: posterior tibial pulses present Extremities: no pedal edema and no edema Results & Data Vital Signs (Past 12 Hours) Vital Signs Temp Pulse Resp BP Pulse Ox 01/22/19 07:11 36.9 C 66 16 110/68 90 01/22/19 05:39 37.1 C 01/21/19 23:38 38 C H 84 16 111/72 90 Resident Activity Tracking Resident Involvement: Resident Care Provided Care Provided: Adult Hospital Medicine (1) Sickle cell anemia Sickle-cell associated disorders: with unspecified crisis Qualified Code(s): D57.00 - Hb-SS disease with crisis, unspecified
[2019-01-22] MEDS: ONDANSETRON INJ 2 MG/ML 2 ML VIAL IV PRN (11:11)
[2019-01-22] MEDS: ACETAMINOPHEN 325 MG TAB PO PRN (22:20)
[2019-01-23] MEDS: HYDROmorphone INJ 0.5 MG/0.5 ML SYR IV PRN ×5 (02:15→22:02)
[2019-01-23] MEDS: SODIUM CHLORIDE 0.9% 1000ML 1,000 ML IV SCH ×3 (05:07→10:09)
[2019-01-23] MEDS: ACETAMINOPHEN 325 MG TAB PO PRN (06:07)
[2019-01-23 07:05] LABS: Hematocrit (blood only) 19.9 % (37-47); Hemoglobin 7.1 g/dL (12.0-16.0); Mean Corpuscular Hemoglobin 34.1 pg (25-34); Mean Corpuscular Hgb Conc 35.7 g/dL (32-36); Mean Corpuscular Volume 95.7 fL (80-100); Mean Platelet Volume 9.7 fL (7.4-10.4); Nucleated RBC # (auto) 0.62 K/uL (0-0); Nucleated RBC % (auto) 6.4 %; Platelet Count 300 K/uL (130-400); RDW Coefficient of Variation 21.9 % (11.5-14.5); RDW Standard Deviation 72.1 fL (36.4-46.3); Red Blood Count 2.08 M/uL (4.2-5.4); White Blood Count 9.72 K/uL (4.8-10.8)
[2019-01-23 07:11] LABS: BUN Creatinine Ratio 6.2 (10-20); Blood Urea Nitrogen 3 mg/dl (7-18); Calcium 8.5 mg/dl (8.5-10.1); Carbon Dioxide 25 mmol/L (21-32); Chloride 108 mmol/L (98-107); Creatinine Clr Calc Pharmacy 181.8 ml/min; Est GFR (African American) > 150.0; Est GFR (Non-African American) 141.2; Glucose 109 mg/dl (70-99); Potassium 3.2 mmol/L (3.5-5.1); Sodium 138 mmol/L (136-145)
[2019-01-23] MEDS ORDERED: SODIUM CHLORIDE 0.9% 250 ML IV PRN ×3 (07:13→13:19)
[2019-01-23 07:23] LABS: Basophils # (auto) 0.04 K/uL (0-0.2); Basophils % (auto) 0.4 %; Immature Granulocytes # (auto) 0.04 K/uL (0.00-0.02); Immature Granulocytes % (auto) 0.4 %; Lymphocytes # (auto) 2.62 K/uL (1.2-3.4); Monocytes % (auto) 9.3 %; Neutrophils # (auto) 6.02 K/uL (1.4-6.5); Neutrophils % (auto) 61.9 %; Pappenheimer Bodies 1+; Sickle Cells 2+; Target Cells 1+
[2019-01-23] MEDS ORDERED: POTASSIUM CHLORIDE 20 MEQ TABCR PO STA (07:39)
--- NOTE | 2019-01-23 07:42 | Hospitalist Progress Note ---
Date of Service January 23, 2019 Assessment & Plan (1) Sickle cell anemia: 18yo F PMH sickle cell anemia, pseudo-seizures admitted for sickle cell crisis. Sickle cell crisis - Pain control with morphine 4 mg IV Q4H, Dilaudid 0.5 mg IV Q4H PRN - has been asking for and receiving pain medication as scheduled every 4 hours -IVF 1/2 NS @ 200cc/hr per guidelines -Cont hydroxyurea 500 daily -Zofran for nausea - workup for inciting event for crisis - UDS negative except for opiates received in ED - UA +blood, epithelial and WBC, no LE or nitrites - Heme/Onc consulted for recommendations re: transfusion indications Anemia 2/2 sickle cell - Hg down to 7.1 this AM - concern given anemia while on hydroxyurea in hospital. patient may not be compliant with outpatient medication; has failed to follow up with Dr. Dietrich in office - 2 uPRBC transfused after type and cross - CBC after transfusion Hypokalemia - K 3.1 this morning - repleted with 40 mg K PO - follow up BMP this evening Hx seizure like activity - continue lamotrigine 50 mg PO BID Depression - continue home 10mg lexapro - follows with a psychiatrist in [place] but can't remember their name. - sickle cell episodes appear to align with worsening depression and anxiety with school stressors FEN/GI: full diet as tolerated DVTP: lovenox Code: full Dispo: admit to med/surg (2) Sickle cell crisis: (3) Generalized pain: Supervising Physician Co-Signing Physician Notes Attending attestation I saw the patient with the resident physician and confirmed amaro portions of the history and physical examination. She states that she feels a little bit better in terms of her overall pain; she is tired; she is without abdominal discomfort. She remains afebrile and hemodynamically stable Heart regular rate and rhythm; lungs clear; mild generalized abdominal tenderness but no focal findings, no rebound or guarding. I could not elicit a Youngblood's sign. Hemoglobin 7.1, hematocrit 19.9 Impression: Acute sickle cell crises, improving in terms of symptoms; mild drop in hemoglobin/hematocrit, although this could partially be attributable to aggressive IV hydration Plan: Change IV fluids to half-normal at 105 cc/h Consult hematology Transfuse 2 units packed red blood cells Subjective Feels a little better this morning. Denies any abdominal pain. generally feels weak. Appetite mildly improved today. Review of Systems Constitutional: + weakness; no fever and no chills Respiratory: no cough, no dyspnea, no hemoptysis and no pain on inspiration Cardiovascular: no chest pain, no palpitations and no edema Gastrointestinal: no abdominal pain and no change in bowel habits Musculoskeletal: + joint pain and + body aches Physical Exam Neck: normal visual inspection Respiratory: normal respiratory effort and able to speak in complete sentences; no respiratory distress, no labored breathing, no retractions, no cough and no audible wheezes Auscultation: lungs clear to auscultation bilaterally; no crackles, no rales, no rhonchi and no wheezes Cardiovascular: Rate/Rhythm: regular rate and regular rhythm Heart Sounds: normal S1 and normal S2; no gallop, no murmur and no cardiac rub Vessels: posterior tibial pulses present Extremities: no pedal edema and no edema Gastrointestinal (Abdomen): soft, nondistended. +RUQ tenderness to palpation. +Youngblood's sign. +LUQ tenderness, worse with inspiration, no splenic enlargement palpable on exam. RUQ pain > LUQ pain. Diffusely tender to palpation in all quadrants. No rebound, no guarding. Results & Data Vital Signs (Past 12 Hours) Vital Signs Temp Pulse Resp BP Pulse Ox 01/22/19 23:23 37.5 C 79 20 122/72 93 01/23/19 01/23/19 01/23/19 Range/Units 07:29 05:50 05:50 WBC 9.72 (4.8-10.8) K/uL RBC 2.08 L (4.2-5.4) M/uL Hgb 7.1 L (12.0-16.0) g/dL Hct 19.9 L* (37-47) % MCV 95.7 (80-100) fL MCH 34.1 H (25-34) pg MCHC 35.7 (32-36) g/dL RDW Std Deviation 72.1 H (36.4-46.3) fL RDW Coeff of Nando 21.9 H (11.5-14.5) % Plt Count 300 (130-400) K/uL MPV 9.7 (7.4-10.4) fL Immature Gran % (Auto) 0.4 % Neut % (Auto) 61.9 % Lymph % (Auto) 27.0 % [place] % (Auto) 9.3 % Eos % (Auto) 1.0 % Baso % (Auto) 0.4 % Immature Gran # (Auto) 0.04 H (0.00-0.02) K/uL Neut # (Auto) 6.02 (1.4-6.5) K/uL Lymph # (Auto) 2.62 (1.2-3.4) K/uL [place] # (Auto) 0.90 H (0.11-0.59) K/uL Eos # (Auto) 0.10 (0-0.5) K/uL Baso # (Auto) 0.04 (0-0.2) K/uL Absolute Nucleated RBC 0.62 H (0-0) K/uL Nucleated RBC % (auto) 6.4 % Pappenheimer Bodies 1+ Sickle Cells 2+ Target Cells 1+ Sodium 138 (136-145) mmol/L Potassium 3.2 L (3.5-5.1) mmol/L Chloride 108 H (98-107) mmol/L Carbon Dioxide 25 (21-32) mmol/L Anion Gap 5.0 (3-11) BUN 3 L (7-18) mg/dl Creatinine 0.48 L (0.6-1.2) mg/dl Est Cr Clr Drug Dosing 181.8 ml/min Est GFR ( Amer) > 150.0 Est GFR (Non-Af Amer) 141.2 BUN/Creatinine Ratio 6.2 L (10-20) Glucose 109 H (70-99) mg/dl Calcium 8.5 (8.5-10.1) mg/dl Blood Type Pending Antibody Screen Pending Crossmatch See Detail Resident Activity Tracking Resident Involvement: Resident Care Provided Care Provided: Adult Hospital Medicine (1) Sickle cell anemia Sickle-cell associated disorders: with unspecified crisis Qualified Code(s): D57.00 - Hb-SS disease with crisis, unspecified
[2019-01-23] MEDS: HYDROXYUREA 500 MG CAP PO SCH ×2 (08:27→20:52)
[2019-01-23] MEDS: lamoTRIgine 25 MG TAB PO SCH ×2 (08:27→20:52)
[2019-01-23] MEDS: ESCITALOPRAM OXALATE 10 MG TAB PO SCH (08:27)
[2019-01-23] MEDS: ENOXAPARIN INJ 40 MG/0.4 ML SYR SQ SCH (08:28)
[2019-01-23] MEDS: risperiDONE 1 MG TABLET PO SCH (08:34)
[2019-01-23] MEDS: SODIUM CHLORIDE 0.45 % 1,000 ML IV SCH ×2 (10:06→18:14)
[2019-01-23 13:09] LABS: Codeine Urine NEGATIVE ng/mL (<50); Hydrocodone Urine NEGATIVE ng/mL (<50); Hydromor Urine 348 ng/mL (<50); Morphine Urine 2740 ng/mL (<50); Norhydrocodone Conf Ur NEGATIVE ng/mL (<50); Noroxycodone Urine 398 ng/mL (<50); Oxycodone Urine 182 ng/mL (<50); Oxymorph Urine 97 ng/mL (<50)
--- NOTE | 2019-01-23 17:55 | Consultation Report ---
DATE OF CONSULTATION: 01/23/2019 HEMATOLOGY CONSULTATION REASON FOR CONSULTATION: A 18-year-old -[place] female with sickle cell anemia, admitted for crisis. HISTORY OF PRESENT ILLNESS: James is a pleasant, somewhat uncomfortable 18-year-old -[place] female who presents to [facility] on 01/21/2019 with progressive skeletal pain, attributable to sickle cell disease. This young lady was scheduled to see me in the office back on 01/15/2019 and missed the appointment. She was admitted back in November for similar symptomatology, received opioids, IV fluids and supportive care. She was also started on hydroxyurea 500 mg p.o. every day. She states since discharge she has been compliant with her medications despite missing her followup appointment. She admits her symptoms returned last Friday and became progressively worse, necessitating admission to the Emergency Room. She denies any fevers, chills. She has not had a lack of appetite or loss of weight. Her peripheral blood counts on admission revealed a WBC count of 9260 and hemoglobin 7.8.. 1.7% nucleated RBCs with sickle cells 2+ and target cells 1+. I was contacted by the hospitalist service of the patient's admission to hospital. She is presently receiving Dilaudid 0.5 mg IV q. 4 hours as well as IV hydration. I also recommended transfusion of 2 units of packed RBCs. Blood is currently in transit. PAST MEDICAL HISTORY: Significant for sickle cell anemia with prior history of acute chest syndrome and pneumonia. PAST SURGICAL HISTORY: Negative. MEDICATIONS: Prior to admission, Jobelyn 1 tablet p.o. at bedtime, cholecalciferol daily, folic acid daily, ibuprofen 200 mg q. 6 hours p.r.n. ALLERGIES: No known drug allergies. FAMILY HISTORY: Positive for sickle cell anemia. 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 She is single. She is nonsmoker, nondrinker, non-illicit drug user. REVIEW OF SYSTEMS: Most notably for diffuse skeletal pain. She denies shortness of breath or dyspnea at present. No fevers, chills or sweats. SKIN: No rashes or lesions. No history of dermatoses. HEENT: She denies headaches, lightheadedness or dizziness. No acute visual or hearing deficits. No sinus symptoms, sore throat or dysphagia. LYMPH: No history of lymphoproliferative disease. CARDIAC: No history of coronary artery disease. No current angina or palpitations. PULMONARY: Negative for shortness of breath, dyspnea or orthopnea. No cough or hemoptysis. GASTROINTESTINAL: Negative for abdominal pain, nausea, vomiting, diarrhea or constipation, hematochezia or melena stools. GENITOURINARY: No hematuria, dysuria, urinary incontinence. PSYCHIATRIC: Negative for clinical anxiety or depression by history. ENDOCRINE: Negative for diabetes or thyroid disease. MUSCULOSKELETAL: As per HPI. NEUROLOGIC: Negative for seizure, stroke, or migraine headache. HEMATOLOGIC: Positive for normocytic normochromic anemia. PHYSICAL EXAMINATION: GENERAL: Very pleasant, somewhat uncomfortable 18-year-old -[place] female in no acute distress. VITAL SIGNS: Temperature 37.5, pulse 62, respiratory rate 18, blood pressure 112/63. SKIN: Warm, dry, noncyanotic without petechia, rash or ecchymosis. HEENT: Oral mucosa without erythema or ulceration. NECK: Supple without JVD or thyromegaly. LYMPH: No cervical, supraclavicular, axillary palpable nodes. HEART: Regular rate and rhythm. No clicks, rubs, murmurs or gallops. LUNGS: Clear to auscultation bilaterally. ABDOMEN: Soft, nontender, nondistended, without palpable hepatosplenomegaly. EXTREMITIES: No calf tenderness or swelling. No clubbing, cyanosis or edema. NEUROLOGICAL: She is awake, alert and oriented x3. Cranial nerves are grossly intact. RADIOGRAPHIC DATA: Chest x-ray done on admission, no significant changes to prior study from November. IMPRESSION: 1. Sickle cell crisis. 2. Progressive anemia attributable to #1. 3. Diffuse musculoskeletal pain. PLAN: James is a pleasant 18-year-old female patient readmitted to [facility] on 01/21/2019 with what appears to be sickle cell crisis. The patient has had multiple admissions over the past couple of months. 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 She will be going on winter break here in the next week or two and suggested that she followup expediently upon arriving home. In the meantime, I would like to increase her hydroxyurea dose to 500 mg p.o. b.i.d. I took the liberty of tightening her interval for Dilaudid to 0.5 mg IV q. 2 hours at this point. The patient was quite uncomfortable when I entered the room and was ringing for the nurse. I would aggressively IV hydrate her. Hopefully, once she receives transfusion, I think some of these symptoms should start to theresa. I stressed the importance of compliance and outpatient followup. She will need to be engaged with myself specifically being admitted to the hospital with the frequency she has cannot emphasize the importance of following up. I have nothing further to add. There does not appear to be any infectious process, but obviously with her history of acute chest syndrome, we need to be vigilant. CHULA
[2019-01-24 01:06] LABS: Hematocrit (blood only) 26.6 % (37-47); Hemoglobin 9.4 g/dL (12.0-16.0)
[2019-01-24] MEDS: HYDROmorphone INJ 0.5 MG/0.5 ML SYR IV PRN ×2 (03:02→07:40)
[2019-01-24 05:49] LABS: Basophils # (auto) 0.03 K/uL (0-0.2); Basophils % (auto) 0.4 %; Eosinophils # (auto) 0.22 K/uL (0-0.5); Eosinophils % (auto) 2.8 %; Hemoglobin 9.1 g/dL (12.0-16.0); Immature Granulocytes # (auto) 0.02 K/uL (0.00-0.02); Immature Granulocytes % (auto) 0.3 %; Lymphocytes # (auto) 2.41 K/uL (1.2-3.4); Lymphocytes % (auto) 31.1 %; Mean Corpuscular Volume 91.5 fL (80-100); Mean Platelet Volume 9.9 fL (7.4-10.4); Monocytes # (auto) 0.92 K/uL (0.11-0.59); Monocytes % (auto) 11.9 %; Neutrophils # (auto) 4.16 K/uL (1.4-6.5); Neutrophils % (auto) 53.5 %; Nucleated RBC % (auto) 5.2 %; Platelet Count 260 K/uL (130-400); RDW Coefficient of Variation 20.1 % (11.5-14.5); RDW Standard Deviation 64.3 fL (36.4-46.3); Red Blood Count 2.84 M/uL (4.2-5.4); White Blood Count 7.76 K/uL (4.8-10.8)
[2019-01-24 06:22] LABS: Anisocytosis Present; Polychromasia 1+; Sickle Cells 2+; Target Cells 1+
[2019-01-24] MEDS: SODIUM CHLORIDE 0.45 % 1,000 ML IV SCH ×2 (07:07→17:21)
[2019-01-24] MEDS: HYDROXYUREA 500 MG CAP PO SCH ×2 (07:40→20:24)
[2019-01-24] MEDS: ESCITALOPRAM OXALATE 10 MG TAB PO SCH (07:40)
[2019-01-24] MEDS: risperiDONE 1 MG TABLET PO SCH (07:40)
[2019-01-24] MEDS: lamoTRIgine 25 MG TAB PO SCH ×2 (07:40→20:24)
[2019-01-24] MEDS: ENOXAPARIN INJ 40 MG/0.4 ML SYR SQ SCH (07:45)
[2019-01-24] MEDS ORDERED: HYDROmorphone INJ 0.5 MG/0.5 ML SYR IV PRN (07:46)
--- NOTE | 2019-01-24 09:26 | Hospitalist Progress Note ---
Date of Service January 24, 2019 Assessment & Plan (1) Sickle cell anemia: 18yo F PMH sickle cell anemia, pseudo-seizures admitted for sickle cell crisis. Sickle cell crisis - Pain control with morphine 4 mg IV Q4H, Dilaudid 0.5 mg IV Q2H - has been asking for and receiving pain medication as scheduled every 4 hours -IVF 1/2 NS @ 100cc/hr -Hydroxyurea 500 BID per hematology recs -Zofran for nausea - Heme/Onc consulted for recommendations Anemia 2/2 sickle cell (resolved) - Hg responded appropriately to 2u pRBC tranfusion; Hg 9.1 today - concern given anemia while on hydroxyurea in hospital. patient may not be compliant with outpatient medication; has failed to follow up with Dr. Dietrich in office. Needs to follow up with Dr. Dietrich in [place] or return to [place] and follow up with [facility] filter tank tender there Hypokalemia - K 3.2 this morning - repleted with 40 mg K PO Hx seizure like activity - continue lamotrigine 50 mg PO BID Depression - continue home 10mg lexapro - follows with a psychiatrist in [place] but can't remember their name. - sickle cell episodes appear to align with worsening depression and anxiety with school stressors FEN/GI: full diet as tolerated DVTP: lovenox Code: full Dispo: admit to med/surg (2) Sickle cell crisis: (3) Generalized pain: Supervising Physician Co-Signing Physician Notes Attending attestation I saw the patient with the resident physician and confirmed amaro portions of the history and physical examination. Also discussed the case with the hematology otm consultant. She remains afebrile and hemodynamically stable Heart regular rate and rhythm; lungs clear; by my exam, her abdomen is soft and nontender. Hemoglobin 9.1 Impression: Acute sickle cell crises, improving in terms of symptoms; status post transfusion 2 units packed red blood cells Plan: Hopeful for discharge tomorrow Emphasized need for outpatient follow-up Subjective Feeling better today. Still having pain but not as severe as previously. Feels much better after transfusion. Review of Systems Constitutional: no fever, no chills, no body aches and no fatigue Respiratory: no cough and no dyspnea Cardiovascular: no chest pain, no dyspnea and no edema Gastrointestinal: no abdominal pain, no nausea, no vomiting, no constipation and no diarrhea/loose stools Genitourinary: no dysuria Physical Exam Constitutional: sleeping comfortably in bed Neck: normal visual inspection Respiratory: normal respiratory effort and able to speak in complete sentences; no respiratory distress, no labored breathing, no retractions, no cough and no audible wheezes Auscultation: lungs clear to auscultation bilaterally; no crackles, no rales, no rhonchi and no wheezes Cardiovascular: Rate/Rhythm: regular rate and regular rhythm Heart Sounds: normal S1 and normal S2; no gallop, no murmur and no cardiac rub Vessels: p osterior tibial pulses present Extremities: no pedal edema and no edema Results & Data Vital Signs (Past 12 Hours) Vital Signs Temp Pulse Pulse Resp BP BP Pulse Ox 01/24/19 08:06 36.8 C 53 L 16 123/73 97 01/23/19 22:55 37.1 C 60 18 106/60 93 01/23/19 22:15 37.0 C 57 L 18 123/81 01/23/19 21:45 36.9 C 55 L 18 107/65 94 01/24/19 01/24/19 01/23/19 Range/Units 05:13 00:55 07:29 WBC 7.76 (4.8-10.8) K/uL RBC 2.84 L (4.2-5.4) M/uL Hgb 9.1 L 9.4 L (12.0-16.0) g/dL Hct 26.0 L 26.6 L (37-47) % MCV 91.5 (80-100) fL MCH 32.0 (25-34) pg MCHC 35.0 (32-36) g/dL RDW Std Deviation 64.3 H (36.4-46.3) fL RDW Coeff of Nando 20.1 H (11.5-14.5) % Plt Count 260 (130-400) K/uL MPV 9.9 (7.4-10.4) fL Immature Gran % (Auto) 0.3 % Neut % (Auto) 53.5 % Lymph % (Auto) 31.1 % [place] % (Auto) 11.9 % Eos % (Auto) 2.8 % Baso % (Auto) 0.4 % Immature Gran # (Auto) 0.02 (0.00-0.02) K/uL Neut # (Auto) 4.16 (1.4-6.5) K/uL Lymph # (Auto) 2.41 (1.2-3.4) K/uL [place] # (Auto) 0.92 H (0.11-0.59) K/uL Eos # (Auto) 0.22 (0-0.5) K/uL Baso # (Auto) 0.03 (0-0.2) K/uL Absolute Nucleated RBC 0.40 H (0-0) K/uL Nucleated RBC % (auto) 5.2 % Polychromasia 1+ Anisocytosis Present Sickle Cells 2+ Target Cells 1+ Blood Type B Positive Antibody Screen NEGATIVE Crossmatch See Detail Resident Activity Tracking Resident Involvement: Resident Care Provided Care Provided: Adult Hospital Medicine (1) Sickle cell anemia Sickle-cell associated disorders: with unspecified crisis Qualified Code(s): D57.00 - Hb-SS disease with crisis, unspecified
[2019-01-24] MEDS ORDERED: POTASSIUM CHLORIDE 20 MEQ TABCR PO STA (10:11)
--- NOTE | 2019-01-24 12:42 | Progress Note ---
DATE: 01/24/2019 HEMATOLOGIC PROGRESS NOTE DIAGNOSES: 1. Sickle cell crisis. 2. Progressive anemia attributable to sickle cell crisis. 3. Diffuse musculoskeletal pain. SUBJECTIVE: James is a pleasant 18-year-old -Citizen Of [place] female who was admitted to [facility] on 01/21/2019 with progressive skeletal pain attributable to sickle crisis. She received 2 units of blood yesterday. Hemoglobin now 9.1 grams per deciliter. Also recommended increase in Hydrea dose to 500 mg p.o. b.i.d. The patient appears to be a bit more comfortable. Informally spoke to the hospitalist service and plans to keep her another 24 hours and perhaps discharge Friday morning. She continues IV hydration as recommended. Nursing reports no overnight difficulties. OBJECTIVE: GENERAL: A very pleasant 18-year-old -Citizen Of [place] female in no acute distress. She definitely appears more comfortable today. VITAL SIGNS: Temperature 36.8, pulse 53, respiratory rate 16, blood pressure 123/73. SKIN: Without rash or lesion. HEENT: Oral mucosa without erythema or ulceration. HEART: Regular rate and rhythm. LUNGS: Clear to auscultation. ABDOMEN: Soft, nontender, nondistended. EXTREMITIES: No clubbing, cyanosis or edema. NEUROLOGICAL: Grossly intact. LABORATORY DATA: WBC count 7760, hemoglobin 9.1, platelet count 260,000. IMPRESSION: 1. Diffuse musculoskeletal pain. 2. Sickle cell crisis. 3. Progressive anemia attributable to sickle cell crisis. PLAN: The patient has now received 2 units of packed RBCs. We have also increased her Hydrea dose to 500 mg p.o. b.i.d. I informally spoke to the hospitalist service and recommended a short course of low-dose opioids, perhaps tramadol 50-100 mg p.o. q.6 hours p.r.n. for the next 7 days or so. She continues to maintain her diet. She admits to moving her bowels. She has been out of bed and can ambulate ad tu. I have nothing further to add other than to stress the importance of outpatient followup. She will enter her winter break at the end of this week coming up. I have asked her to touch base with her field recruiter in [place]. I would like to see her in my office when she returns from [facility] in February. I anticipate discharge tomorrow, but will sign her case out to Dr. Zaman who will take over service in the morning.
[2019-01-24] MEDS: ACETAMINOPHEN 325 MG TAB PO PRN ×2 (16:12→20:22)
[2019-01-24] MEDS ORDERED: Nursing to Pharmacy Communication ONE (17:22)
[2019-01-25] MEDS ORDERED: Nursing to Pharmacy Communication ONE (03:51)
[2019-01-25] MEDS: SODIUM CHLORIDE 0.45 % 1,000 ML IV SCH (04:56)
--- NOTE | 2019-01-25 07:10 | Hospitalist Progress Note ---
Date of Service January 25, 2019 Assessment & Plan (1) Sickle cell anemia: 18yo F PMH sickle cell anemia, pseudo-seizures admitted for sickle cell crisis. Sickle cell crisis - Pain control with morphine 4 mg IV Q4H, Dilaudid 0.5 mg IV Q2H - has been asking for and receiving pain medication as scheduled every 4 hours -IVF 1/2 NS @ 100cc/hr -Hydroxyurea 500 BID per hematology recs -Zofran for nausea - Heme/Onc consulted for recommendations Anemia 2/2 sickle cell (resolved) - Hg responded appropriately to 2u pRBC tranfusion; Hg 9.1 today - concern given anemia while on hydroxyurea in hospital. patient may not be compliant with outpatient medication; has failed to follow up with Dr. Dietrich in office. Needs to follow up with Dr. Dietrich in [place] or return to [place] and follow up with [facility] electrician deck there Hypokalemia - K 3.2 this morning - repleted with 40 mg K PO Hx seizure like activity - continue lamotrigine 50 mg PO BID Depression - continue home 10mg lexapro - follows with a psychiatrist in [place] but can't remember their name. - sickle cell episodes appear to align with worsening depression and anxiety with school stressors FEN/GI: full diet as tolerated DVTP: lovenox Code: full Dispo: admit to med/surg (2) Sickle cell crisis: (3) Generalized pain: Results & Data Vital Signs (Past 12 Hours) Vital Signs Temp Pulse Resp BP Pulse Ox 01/25/19 00:38 67 107/67 01/24/19 23:15 36.2 C L 52 L 16 97/58 L 95 (1) Sickle cell anemia Sickle-cell associated disorders: with unspecified crisis Qualified Code(s): D57.00 - Hb-SS disease with crisis, unspecified
[2019-01-25] MEDS ORDERED: OXYCODONE HCL IR 5 MG TAB (IMMEDIATE RELEASE) PO PRN (07:13)
[2019-01-25 08:16] LABS: Hematocrit (blood only) 27.8 % (37-47); Mean Corpuscular Hemoglobin 32.4 pg (25-34); Mean Platelet Volume 10.1 fL (7.4-10.4); Nucleated RBC % (auto) 2.8 %; Platelet Count 251 K/uL (130-400); RDW Coefficient of Variation 20.7 % (11.5-14.5); RDW Standard Deviation 66.7 fL (36.4-46.3); Red Blood Count 3.09 M/uL (4.2-5.4); White Blood Count 6.94 K/uL (4.8-10.8)
[2019-01-25] MEDS: HYDROXYUREA 500 MG CAP PO SCH (08:22)
[2019-01-25] MEDS: lamoTRIgine 25 MG TAB PO SCH (08:22)
[2019-01-25] MEDS: risperiDONE 1 MG TABLET PO SCH (08:23)
[2019-01-25] MEDS: ESCITALOPRAM OXALATE 10 MG TAB PO SCH (08:23)
[2019-01-25] MEDS: ENOXAPARIN INJ 40 MG/0.4 ML SYR SQ SCH (08:24)
[2019-01-25 08:34] LABS: ALC (manual) 1.64 K/uL (1.2-3.4); ANC (manual) 5.05 K/uL (1.4-6.5); Anisocytosis Present; Basophils # (manual) 0.06 K/uL (0-0.2); Basophils % (manual) 0.9 %; Eosinophils # (manual) 0.06 K/uL (0-0.5); Eosinophils % (manual) 0.9 %; Lymphocytes # (manual) 1.64 K/uL (1.2-3.4); Lymphocytes % (manual) 23.7 %; Monocytes # (manual) 0.12 K/uL (0.11-0.59); Monocytes % (manual) 1.8 %; Neutrophils # (manual) 5.05 K/uL (1.4-6.5); Neutrophils % (manual) 72.7 %; Polychromasia 1+; Sickle Cells 1+; Target Cells 2+
[2019-01-25 08:45] LABS: BUN Creatinine Ratio 10.9 (10-20); Blood Urea Nitrogen 5 mg/dl (7-18); Calcium 9.7 mg/dl (8.5-10.1); Carbon Dioxide 22 mmol/L (21-32); Chloride 107 mmol/L (98-107); Creatinine Clr Calc Pharmacy 174.5 ml/min; Est GFR (African American) > 150.0; Est GFR (Non-African American) 139.3; Glucose 88 mg/dl (70-99); Potassium 3.7 mmol/L (3.5-5.1); Sodium 138 mmol/L (136-145)
--- NOTE | 2019-01-25 10:32 | Discharge Summary ---
Date of Service January 25, 2019 Admission HPI Per Admitting Provider Patient is a 18yo F H sickle cell disease, seizure disorder, anxiety/depression who presents with concerns of sickle cell crisis/generalized severe body pains. She states she gets crises every 2 months or so. Pt last admitted to this facility 11/28-. She states she has been having increasing worsening body pain for 2 days. She presented to the ER earlier this evening, was given IVF, pain meds, and a home pain pack, not wanting to be admitted, but notes that when she went home, she could not sleep and the pain just got increasingly worse. She states she has been taking her hydroxyurea. She has not followed up with her deck and hull assembler recently (she had an appointment scheduled for 01/15). Admission Exam Per Admitting Provider Constitutional: WD/WN, vitals as above + acute distress and + ill appearing Patient shaking and crying on assessment. Respiratory: normal respiratory effort, lungs clear to auscultation Cardiovascular: RRR, no murmur, no edema Gastrointestinal (Abdomen): normal bowel sounds, soft, nontender, no hepatosplenomegaly Skin: no rashes, warm and dry Neurologic: PERRL, EOMI, accommodation nl, no face palsy, no dysarthria Psychiatric: Orientation: alert and oriented x 3 Principal Diagnosis sickle cell crisis Discharge Exam Constitutional much improved from admission. Sitting up comfortably in bed fully dressed Neck normal visual inspection Respiratory normal respiratory effort and able to speak in complete sentences; no respiratory distress, no labored breathing, no retractions, no cough and no audible wheezes Auscultation: lungs clear to auscultation bilaterally; no crackles, no rales, no rhonchi and no wheezes Cardiovascular Rate/Rhythm: regular rate and regular rhythm Heart Sounds: normal S1 and normal S2; no gallop, no murmur and no cardiac rub Vessels: posterior tibial pulses present Extremities: no pedal edema and no edema Gastrointestinal (Abdomen) Inspection/Auscultation: abdomen normal to inspection and normal bowel sounds; abdomen not distended Percussion/Palpation: abdomen soft; abdomen nontender, no guarding and no splenomegaly Discharge Data Allergies Allergy/AdvReac Type Severity Reaction Status Date / Time No Known Allergies Allergy Verified 01/20/19 23:19 Consultations 01/21/19 03:44 ED Decision to Admit Stat 01/23/19 08:00 Consult Hematology Routine Hospital Course (1) Sickle cell anemia: 18yo F PMH sickle cell anemia, pseudo-seizures admitted for sickle cell crisis. Sickle cell crisis Patient was admitted on 01/21 for acute sickle cell crisis. She received 0.5 mg Dilaudid in the ED and continued to have 4mg morphine and 0.5 mg dilaudid available to her for pain control until 01/24 when she started requiring less medication for pain control. We also kept fluids running to rehydrate her. Hematology was consulted, and per their recommendations her 500 mg Hydroxyurea daily to 500 BID. Anemia 2/2 sickle cell (resolved) Baseline hemoglobin is ~8-9. Over the weekend dropped to 7.1, at which point we transfused 2u pRBC. She responded very well to transfusion. Hypokalemia Multiple BMPs showing hypokalemia of 3.1/3.3 which were repleted with oral potassium. Hx seizure like activity - continue lamotrigine 50 mg PO BID Depression - continue home 10mg lexapro - follows with a psychiatrist in [place] but can't remember their name. - sickle cell episodes appear to align with worsening depression and anxiety with school stressors (2) Sickle cell crisis: (3) Generalized pain: Total Time Total Time Spent Total Time Spent (In Minutes): Less than 30 Discharge Plan Discharge Items Patient Disposition: Home - Self-Care Reason For Visit: SICKLE CELL CRISIS Discharge Diagnosis: Sickle cell crisis Activity: Resume your previous activity Non-emergency contact: Primary Care Provider and Oncologist Call non-emergency contact if: you have any medication questions and your pain is unusual for you Follow-up/Referrals: Jp Dietrich DO [Physician] - 03/05/19 11:00 am (Please, follow up with Dr. Jp Dietrich (deck and hull assembler) on FridayMarch 05 at 11:00 am. *The office is located in the rear of this hospital building. Park BEHIND the hospital in [address] and enter via [facility]. If you need to change/cancel this appointment, call Dr. Dietrich's office at [phone].) Donna Houser MD [Primary Care Provider] - 01/28/19 11:00 am (Please, follow up at [facility] with Dr. Donna Houser on January 28 at 11:00 am. *If you need to change this appointment, call the office at [phone].) Diet: Regular Addtl Attending Provider Instructions: You were admitted to the hospital for a sickle cell pain crisis. During her hospital stay you received IV fluids and pain medications to help control your crisis. Periodically your electrolyte deficiencies were repleted. You were also seen by the deck and hull assembler Dr. Mccoy who recommended transfusion of 2 units of packed red blood cells. We also increased your hydroxyurea dose from 500 once a day to 500 twice a day. It is crucial that upon discharge you continue taking your medications as prescribed and stay well-hydrated in order to avoid a repeat crisis. It is also vitally important that you follow-up with either Dr. Dietrich in [place] or your deck and hull assembler in [place] in order to properly follow your sickle cell disease and try to prevent any future hospitalizations. During your stay we also discussed your depression and anxiety. I would recommend following up with your psychiatrist to discuss your medication regimen and whether or not there are other options that might help you more. Follow-up with your primary care physician in the near future. Good luck on finals and happy holidays! Pending Studies at Discharge: No Stand-Alone Forms: My [facility], Work/School Release (Inpt), Smoking Cessation Medications and DC Order Prescriptions: New tramadol 50 mg tablet 50 mg PO TID PRN (Reason: pain) Qty: 10 RF: 0 Continued risperidone 1 mg tablet 1 mg PO DAILY RF: 0 escitalopram oxalate 10 mg tablet 10 mg PO DAILY RF: 0 lamotrigine 25 mg tablet 50 mg PO BID RF: 0 Changed hydroxyurea 500 mg capsule 500 mg PO BID Qty: 0 RF: 0 Discharge Orders: Discharge Order (Routine); Ordered 01/25/19 Ordered By: Zamzam Bailey Admission Data Admit Date/Time: 01/21/19 04:25 Attending Provider: Cesar Kerr Admit Provider: Tiana Hernandez Primary Care Provider: Donna Houser Other Providers: Michele Wellington ; Jp Dietrich V ; Yeison Pond Other Interventions: Discharge Summary Assessment (RN) Last Done: 01/25/19 11:43 DC Date/Time DO NOT enter until pt leaves facility: 01/25/19 12:34 Supervising Physician Co-Signing Physician Notes I personally examined the patient and verified all amaro points of history and exam, discussed case, and agree with decision making with Dr Bailey. Patient feeling better, feeling up to getting out of the hospital. Discussed pain medications, discussed simple measures to try to minimize sickle crises such as dressing warm for walking across campus in the winter and staying well- hydrated. Also discussed the increase in the dose of hydroxyurea. Vitals noted, in general she is awake and alert pleasant no distress. HEENT normocephalic atraumatic mucous membranes moist. Breathing unlabored no accessory muscles good effort. Skin shows no rashes no pallor or icterus. Sickle cell anemia/crisisseems to be improving to where she is able to go home. Agree with hematology increasing hydroxyurea given how frequently it seems that she gets crises. Discussed simple measures that may help reduce her crises as above. Prescribed tramadol for a trial of finishing out pain controlshe noted that other pain meds have not helped much. Stable for discharge to home, otherwise as above. Resident Activity Tracking Resident Involvement: Resident Care Provided Care Provided: Adult Hospital Medicine
--- NOTE | 2019-01-25 18:01 | Billing Data ---
Coding Level of Care Code D/C Day Management <30 mins
== END 2019-01-25 12:34 | disposition home or self-care (01) | DRG 812 ==
LOC: ED 03:18 → SUATTDRO 04:25 → 4W 04:25

== ENCOUNTER 2019-02-03 15:42 | Inpatient (IN) ==
[2019-02-03 17:46] LABS: Appearance Urine Clear (Clear); Bilirubin Urine Negative (Negative); Blood Urine Negative (Negative); Color Urine Yellow; Glucose Urine UA Negative (Negative); Ketones Urine Negative (Negative); Leukocyte Esterase Urine Negative (Negative); Nitrite Urine Negative (Negative); Protein Urine Negative (Negative); Specific Gravity Urine 1.011 (1.000-1.030); Urobilinogen Urine Negative (Negative); pH Urine 6.5 (4.5-7.5)
[2019-02-03 17:59] LABS: Hematocrit (blood only) 27.6 % (37-47); Hemoglobin 9.2 g/dL (12.0-16.0); Mean Corpuscular Hemoglobin 31.1 pg (25-34); Mean Corpuscular Hgb Conc 33.3 g/dL (32-36); Mean Corpuscular Volume 93.2 fL (80-100); Mean Platelet Volume 9.8 fL (7.4-10.4); Nucleated RBC # (auto) 0.03 K/uL (0-0); Nucleated RBC % (auto) 0.6 %; Platelet Count 428 K/uL (130-400); RDW Coefficient of Variation 17.7 % (11.5-14.5); RDW Standard Deviation 60.2 fL (36.4-46.3); Red Blood Count 2.96 M/uL (4.2-5.4); White Blood Count 5.52 K/uL (4.8-10.8)
[2019-02-03 18:14] LABS: Amphetamines+Metham, Urine Neg (Neg); Barbiturates, Urine Neg (Neg); Benzodiazepine, Urine Neg (Neg); Cocaine, Urine Neg (Neg); MDMA (Ecstacy), Urine Neg (Neg); Methadone, Urine Neg (Neg); Opiate, Urine Neg (Neg); Phencyclidine, Urine Neg (Neg)
[2019-02-03 18:15] LABS: Pregnancy Test, Serum Negative (Negative)
[2019-02-03 18:22] LABS: Alanine Aminotransferase 35 U/L (12-78); Albumin Level 3.9 gm/dl (3.4-5.0); Blood Urea Nitrogen 7 mg/dl (7-18); Calcium 9.3 mg/dl (8.5-10.1); Carbon Dioxide 28 mmol/L (21-32); Chloride 108 mmol/L (98-107); Creatinine Clr Calc Pharmacy 164.7 ml/min; Est GFR (African American) > 150.0; Est GFR (Non-African American) 137.5; Glucose 88 mg/dl (70-99); Potassium 3.5 mmol/L (3.5-5.1); Sodium 138 mmol/L (136-145)
[2019-02-03 18:25] LABS: Basophils # (auto) 0.03 K/uL (0-0.2); Basophils % (auto) 0.5 %; Eosinophils # (auto) 0.15 K/uL (0-0.5); Eosinophils % (auto) 2.7 %; Immature Granulocytes # (auto) 0.01 K/uL (0.00-0.02); Immature Granulocytes % (auto) 0.2 %; Lymphocytes # (auto) 2.87 K/uL (1.2-3.4); Monocytes # (auto) 0.48 K/uL (0.11-0.59); Monocytes % (auto) 8.7 %; Neutrophils # (auto) 1.98 K/uL (1.4-6.5); Neutrophils % (auto) 35.9 %; Target Cells 1+
[2019-02-03 18:32] LABS: Albumin Globulin Ratio 0.9 (0.9-2); Alkaline Phosphatase 76 U/L (45-117); Aspartate Aminotransferase 43 U/L (15-37); Bilirubin,Total 1.8 mg/dl (0.2-1); Globulin 4.3 gm/dl (2.5-4.0); Total Protein 8.2 gm/dl (6.4-8.2)
--- NOTE | 2019-02-03 18:53 | Emergency Department Note ---
Entered by Mare Morley acting as a scribe for Robert Mobley MD History of Present Illness General Chief complaint: Mental Health Evaluation Stated complaint: 302 Time Seen by Provider: 02/03/19 15:49 Source: patient History of Present Illness Onset (ago): day(s) 5 Location: head (suicidal ideation) Severity: similar to prior episodes Pain Consistency: + other (episode) Maximum Pain Intensity: 0 Quality: + other (suicidal ideation) Exacerbated By: + other (school work) Associated symptoms: + other (Positive depression, hopelessness, tired. Negative visual hallucinations.) Treatments prior to arrival: other (CAPS appointment) The patient is a 18 year old female presenting to the Emergency Department complaining of an episode of suicidal ideation occurring 5 days ago. The patient reports that she put Oxycodone and Tylenol in her mouth with the intention of overdosing. She states that at that time she was suicidal and depressed. She explains that she has dealt with depression for many years. She notes that she isnt currently suicidal. She adds that she has experienced these symptoms before as she has tried to overdose on medications before, the last time being about a month or two ago. The patient reports that she feels lonely, helpless and tired. She states that she doesnt feel comfortable explaining why she tried to overdose 5 days ago but that it was partly related to school work. She explains that she has weekly appointments with [facility]. She notes that she met with [facility] TOY MECHANIC who sent the patient to the ED. She adds that she established a safety plan with [facility] at the beginning of the month. The patient reports that a part of this plan is calling her sister who lives outside of [place], [place] or friends at school. However, the patient states that she has no good friends locally to call for help. She explains that her parents do know about her depression but that they live in [facility]. She notes that she may hear voices in her head but that she isnt sure if these voices are her own thoughts. She adds that she sometimes sees Dr. Dietrich [facility] oncologist for her sickle cell anemia. The patient denies visual hallucinations. Home Medications Home Medications Medication Instructions Recorded Confirmed Type escitalopram oxalate 10 mg PO DAILY 01/04/19 02/03/19 History risperidone 1 mg PO DAILY 01/04/19 02/03/19 History lamotrigine 50 mg PO BID 01/20/19 02/03/19 History hydroxyurea 500 mg PO BID #0 cap 01/25/19 02/03/19 Rx tramadol 50 mg PO TID PRN #10 tab 01/25/19 02/03/19 Rx Allergies Allergy/AdvReac Type Severity Reaction Status Date / Time No Known Allergies Allergy Verified 01/20/19 23:19 Past Med/Surg History Medical History Pneumonia Seizure-like activity Sickle cell anemia (Chronic) Sickle cell crisis Surgical History No pertinent past surgical history Family History Mother Hypertension Father Ulcer Other Family history non-contributory Social History Preferred Language: Estonian Communication Ability: Effective 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 and A total of 10 systems reviewed and were otherwise negative Physical Exam Vital Signs Vital Signs - 24 hr 02/03/19 15:44 Temperature 36.8 C Temperature Source Oral Pulse Rate 61 Respiratory Rate 16 Respiratory Depth Normal Blood Pressure 114/72 Blood Pressure Mean 86 Pulse Oximetry 100 Sepsis Recent Fever Within 48 Hours No Sepsis New/Unexplained Change in Mental Status No Sepsis Action Taken by Nursing No Action Required GENERAL: Awake, alert, well-appearing, in no distress HENT: Normocephalic, atraumatic. Oropharynx unremarkable. EYES: Normal conjunctiva. Sclera non-icteric. NECK: Supple. No nuchal rigidity. FROM. No JVD. RESPIRATORY: CTAB. CARDIAC: Regular rate, normal rhythm. Extremities warm and well perfused. Pulses equal. ABDOMEN: Soft, non-distended. No tenderness to palpation. No rebound or guarding. No masses. RECTAL: Deferred. MUSCULOSKELETAL: Chest examination reveals no tenderness. The back is symmetrical on inspection without obvious abnormality. There is no CVA tenderness to palpation. No joint edema. LOWER EXTREMITIES: Calves are equal size bilaterally and non-tender. No edema. No discoloration. NEURO: Normal sensorium. No sensory or motor deficits noted. PSYCH: Waxing and waning from melancholy to colorful affect. Positive depression. Admits hopelessness with intermittent SI with recent suicidal gesture. SKIN: No rash or jaundice noted. Course Course 1555: The patient was evaluated in room A6, and a complete history and physical examination were performed. 1724: The psychiatric window caser reported that the patient is willing to stay. 1953: The patient was medically cleared at this time. A referral was made to [address] [place] [address]. 1944: The patient was accepted to [address] [place] [address]. They will evaluate the patient for further management. Administered Medications Hydroxyurea (Hydrea) 500 mg PO BID [facility] Stop: 03/05/19 20:59 Last Admin: 02/03/19 22:03 Dose: 500 mg Documented by: [id number] Cosigned by: [id number] Lamotrigine (Lamictal) 50 mg PO BID [facility] Stop: 03/05/19 20:59 Last Admin: 02/03/19 22:03 Dose: 50 mg Documented by: [id number] Medical Decision Making Differential Diagnosis Differential diagnoses considered include mood disorder, infection, hypoglycemia, electrolyte abnormalities, cardiac sources, intracerebral event, toxicologic, neurologic, as well as others. Medical Records Attestation: I reviewed the patient's medical records. Home Medications Current Medication List: was personally reviewed by me Laboratory Data Attestation: I reviewed the patient's lab results. Result diagrams: 02/03/19 17:41 02/03/19 17:41 Lab Results 02/03/19 02/03/19 02/03/19 Range/Units 17:32 17:32 17:41 WBC (4.8-10.8) K/uL RBC (4.2-5.4) M/uL Hgb (12.0-16.0) g/dL Hct (37-47) % MCV (80-100) fL MCH (25-34) pg MCHC (32-36) g/dL RDW Std Deviation (36.4-46.3) fL RDW Coeff of Nando (11.5-14.5) % Plt Count (130-400) K/uL MPV (7.4-10.4) fL Immature Gran % (Auto) % Neut % (Auto) % Lymph % (Auto) % [place] % (Auto) % Eos % (Auto) % Baso % (Auto) % Immature Gran # (Auto) (0.00-0.02) K/uL Neut # (Auto) (1.4-6.5) K/uL Lymph # (Auto) (1.2-3.4) K/uL [place] # (Auto) (0.11-0.59) K/uL Eos # (Auto) (0-0.5) K/uL Baso # (Auto) (0-0.2) K/uL Absolute Nucleated RBC (0-0) K/uL Nucleated RBC % (auto) % Target Cells Sodium (136-145) mmol/L Potassium (3.5-5.1) mmol/L Chloride (98-107) mmol/L Carbon Dioxide (21-32) mmol/L Anion Gap (3-11) BUN (7-18) mg/dl Creatinine (0.6-1.2) mg/dl Est Cr Clr Drug Dosing ml/min Est GFR ( Amer) Est GFR (Non-Af Amer) BUN/Creatinine Ratio (10-20) Glucose (70-99) mg/dl Calcium (8.5-10.1) mg/dl Total Bilirubin (0.2-1) mg/dl AST (15-37) U/L ALT (12-78) U/L Alkaline Phosphatase (45-117) U/L Total Protein (6.4-8.2) gm/dl Albumin (3.4-5.0) gm/dl Globulin (2.5-4.0) gm/dl Albumin/Globulin Ratio (0.9-2) TSH (0.300-4.500) uIu/ml HCG, Qual Negative (Negative) Urine Color Yellow Urine Appearance Clear (Clear) Urine pH 6.5 (4.5-7.5) Ur Specific [place] 1.011 (1.000-1.030) Urine Protein Negative (Negative) Urine Glucose (UA) Negative (Negative) Urine Ketones Negative (Negative) Urine Blood Negative (Negative) Urine Nitrite Negative (Negative) Urine Bilirubin Negative (Negative) Urine Urobilinogen Negative (Negative) Ur Leukocyte Esterase Negative (Negative) Salicylates (2.8-20) mg/dl Urine Opiates Screen Neg (Neg) Ur Methadone, Qual Neg (Neg) Acetaminophen (10-30) ug/ml Urine Barbiturates Neg (Neg) Ur Phencyclidine (PCP) Neg (Neg) U Amphetamin/Meth Scrn Neg (Neg) MDMA (Ecstasy) Screen Neg (Neg) U Benzodiazepines Scrn Neg (Neg) Ur Cocaine Metabolite Neg (Neg) U Marijuana (THC) Screen Neg (Neg) Ethyl Alcohol mg/dL (0-3) mg/dl 02/03/19 02/03/19 02/03/19 Range/Units 17:41 17:41 17:41 WBC 5.52 (4.8-10.8) K/uL RBC 2.96 L (4.2-5.4) M/uL Hgb 9.2 L (12.0-16.0) g/dL Hct 27.6 L (37-47) % MCV 93.2 (80-100) fL MCH 31.1 (25-34) pg MCHC 33.3 (32-36) g/dL RDW Std Deviation 60.2 H (36.4-46.3) fL RDW Coeff of [place]ando 17.7 H (11.5-14.5) % Plt Count 428 H (130-400) K/uL MPV 9.8 (7.4-10.4) fL Immature Gran % (Auto) 0.2 % Neut % (Auto) 35.9 % Lymph % (Auto) 52.0 % [place] % (Auto) 8.7 % Eos % (Auto) 2.7 % Baso % (Auto) 0.5 % Immature Gran # (Auto) 0.01 (0.00-0.02) K/uL Neut # (Auto) 1.98 (1.4-6.5) K/uL Lymph # (Auto) 2.87 (1.2-3.4) K/uL [place] # (Auto) 0.48 (0.11-0.59) K/uL Eos # (Auto) 0.15 (0-0.5) K/uL Baso # (Auto) 0.03 (0-0.2) K/uL Absolute Nucleated RBC 0.03 H (0-0) K/uL Nucleated RBC % (auto) 0.6 % Target Cells 1+ Sodium 138 (136-145) mmol/L Potassium 3.5 (3.5-5.1) mmol/L Chloride 108 H (98-107) mmol/L Carbon Dioxide 28 (21-32) mmol/L Anion Gap 2.0 L (3-11) BUN 7 (7-18) mg/dl Creatinine 0.52 L (0.6-1.2) mg/dl Est Cr Clr Drug Dosing 164.7 ml/min Est GFR ( Amer) > 150.0 Est GFR (Non-Af Amer) 137.5 BUN/Creatinine Ratio 13.0 (10-20) Glucose 88 (70-99) mg/dl Calcium 9.3 (8.5-10.1) mg/dl Total Bilirubin 1.8 H (0.2-1) mg/dl AST 43 H (15-37) U/L ALT 35 (12-78) U/L Alkaline Phosphatase 76 (45-117) U/L Total Protein 8.2 (6.4-8.2) gm/dl Albumin 3.9 (3.4-5.0) gm/dl Globulin 4.3 H (2.5-4.0) gm/dl Albumin/Globulin Ratio 0.9 (0.9-2) TSH 1.120 (0.300-4.500) uIu/ml HCG, Qual (Negative) Urine Color Urine Appearance (Clear) Urine pH (4.5-7.5) Ur Specific [place] (1.000-1.030) Urine Protein (Negative) Urine Glucose (UA) (Negative) Urine Ketones (Negative) Urine Blood (Negative) Urine Nitrite (Negative) Urine Bilirubin (Negative) Urine Urobilinogen (Negative) Ur Leukocyte Esterase (Negative) Salicylates (2.8-20) mg/dl Urine Opiates Screen (Neg) Ur Methadone, Qual (Neg) Acetaminophen (10-30) ug/ml Urine Barbiturates (Neg) Ur Phencyclidine (PCP) (Neg) U Amphetamin/Meth Scrn (Neg) MDMA (Ecstasy) Screen (Neg) U Benzodiazepines Scrn (Neg) Ur Cocaine Metabolite (Neg) U Marijuana (THC) Screen (Neg) Ethyl Alcohol mg/dL (0-3) mg/dl 12/18/19 Range/Units 17:41 WBC (4.8-10.8) K/uL RBC (4.2-5.4) M/uL Hgb (12.0-16.0) g/dL Hct (37-47) % MCV (80-100) fL MCH (25-34) pg MCHC (32-36) g/dL RDW Std Deviation (36.4-46.3) fL RDW Coeff of Nando (11.5-14.5) % Plt Count (130-400) K/uL MPV (7.4-10.4) fL Immature Gran % (Auto) % Neut % (Auto) % Lymph % (Auto) % [place] % (Auto) % Eos % (Auto) % Baso % (Auto) % Immature Gran # (Auto) (0.00-0.02) K/uL Neut # (Auto) (1.4-6.5) K/uL Lymph # (Auto) (1.2-3.4) K/uL [place] # (Auto) (0.11-0.59) K/uL Eos # (Auto) (0-0.5) K/uL Baso # (Auto) (0-0.2) K/uL Absolute Nucleated RBC (0-0) K/uL Nucleated RBC % (auto) % Target Cells Sodium (136-145) mmol/L Potassium (3.5-5.1) mmol/L Chloride (98-107) mmol/L Carbon Dioxide (21-32) mmol/L Anion Gap (3-11) BUN (7-18) mg/dl Creatinine (0.6-1.2) mg/dl Est Cr Clr Drug Dosing ml/min Est GFR ( Amer) Est GFR (Non-Af Amer) BUN/Creatinine Ratio (10-20) Glucose (70-99) mg/dl Calcium (8.5-10.1) mg/dl Total Bilirubin (0.2-1) mg/dl AST (15-37) U/L ALT (12-78) U/L Alkaline Phosphatase (45-117) U/L Total Protein (6.4-8.2) gm/dl Albumin (3.4-5.0) gm/dl Globulin (2.5-4.0) gm/dl Albumin/Globulin Ratio (0.9-2) TSH (0.300-4.500) uIu/ml HCG, Qual (Negative) Urine Color Urine Appearance (Clear) Urine pH (4.5-7.5) Ur Specific [place] (1.000-1.030) Urine Protein (Negative) Urine Glucose (UA) (Negative) Urine Ketones (Negative) Urine Blood (Negative) Urine Nitrite (Negative) Urine Bilirubin (Negative) Urine Urobilinogen (Negative) Ur Leukocyte Esterase (Negative) Salicylates (2.8-20) mg/dl Urine Opiates Screen (Neg) Ur Methadone, Qual (Neg) Acetaminophen (10-30) ug/ml Urine Barbiturates (Neg) Ur Phencyclidine (PCP) (Neg) U Amphetamin/Meth Scrn (Neg) MDMA (Ecstasy) Screen (Neg) U Benzodiazepines Scrn (Neg) Ur Cocaine Metabolite (Neg) U Marijuana (THC) Screen (Neg) Ethyl Alcohol mg/dL < 3.0 (0-3) mg/dl Blood Pressure Blood Pressure Findings: Elevated blood pressure Blood Pressure Disposition: further management by hospitalist PREMA Narrative The patient is a pleasant 18-year-old woman with a past medical history of sickle cell anemia, international student from [place] who presents emergency department with persistent depression and suicidal gesture over the weekend where she put pills in her mouth but spit them out but subsequently met with caps today informing him of this and she was then referred to the emergency d phani given her high risk for suicide per HPI. On arrival the patient is waxing and waning from melancholy to colorful affect. She does admit to feeling depressed and hopeless though she does not have active suicidal ideation at this time. After extensive discussion and importance of safety planning and her lack of an effective plan, the patient ultimately was agreeable for voluntary admiss ion. WBC within normal limits. H/H9 0.2/27.6, improved for patient. Platelets 428, nonspecific. Chemistry without acidosis. AST 43, nonspecific and similar to prior. Electrolytes and LFTs unremarkable. UA negative for infection. Drug screen unremarkable. ASA and Apap levels send out. However patient has no report, sign or sx of overdose. Patient was medically cleared. 201 signed, accepted to . Impression & Plan Depression, Suicide gesture Discharge Plan Visit Data *Final* Discharge Date/Time: 02/03/19 20:18 Chief Complaint: Mental Health Evaluation Stated Complaint: 302 ED Provider: Robert Mobley Discharge Problem: Depression, Suicide gesture Patient Disposition: Admitted As Inpatient Discharge Instructions Interventions: ED Discharge Assessment Last Done: 02/03/19 20:18 Discharge Problem: Depression Qualifiers: Depression Type: unspecified Qualified Code(s): F32.9 - Major depressive disorder, single episode, unspecified Suicide gesture Qualifiers: Encounter type: initial encounter Qualified Code(s): X83.8XXA - Intentional self-harm by other specified means, initial encounter The scribe's documentation has been prepared under my direction and personally reviewed by me in its entirety. I confirm that the note above accurately reflects all work, treatment, procedures, and medical decision making performed by me.
[2019-02-03] MEDS ORDERED: ACETAMINOPHEN 325 MG TAB PO PRN (20:59)
[2019-02-03] MEDS ORDERED: TRAMADOL HCL 50 MG TABLET PO PRN (20:59)
[2019-02-03] MEDS ORDERED: ALUMINUM/MAGNESIUM SUSP 30 ML UDC PO PRN (20:59)
[2019-02-03] MEDS ORDERED: SODIUM CHLORIDE 0.65% NA SOLN 45 ML (OCEAN) PRN (20:59)
[2019-02-03] MEDS ORDERED: MAGNESIUM HYDROXIDE SUSP 30 ML UDC PO PRN (20:59)
[2019-02-03] MEDS ORDERED: BISMUTH SUBSALICYLATE PER ML OMNICELL CHARGE PO PRN (20:59)
[2019-02-03] MEDS: HYDROXYUREA 500 MG CAP PO SCH (22:03)
[2019-02-03] MEDS: lamoTRIgine 25 MG TAB PO SCH (22:03)
--- NOTE | 2019-02-04 08:57 | History & Physical ---
Date of Service February 04, 2019 Impression / Recommendations Protective Factors Assessment Employed: No Psychiatric History Identifying Data ADÁN PEOPLES is a 18-year-old F who currently lives in [] [alone] with [], has a history of [], and was admitted on 02/03/19 20:11 on a [201 voluntary] [302 involuntary] commitment for []. Chief Complaint "[]". Past Psychiatric History Current Psychiatric Diagnosis: Depression Describe Attempts in the Past: "Always with pills" Allergies Allergy/AdvReac Type Severity Reaction Status Date / Time No Known Allergies Allergy Verified 01/20/19 23:19 Home Medications Home Medications Medication Instructions Recorded Confirmed Type escitalopram oxalate 10 mg PO DAILY 01/04/19 02/03/19 History risperidone 1 mg PO DAILY 01/04/19 02/03/19 History lamotrigine 50 mg PO BID 01/20/19 02/03/19 History hydroxyurea 500 mg PO BID #0 cap 01/25/19 02/03/19 Rx tramadol 50 mg PO TID PRN #10 tab 01/25/19 02/03/19 Rx Family History Family History of: None Alcohol History Hx of Alcohol Use Over the Past 12 Months: No AUDIT Total Score: 0 Smoking Use Smoking Status: Never smoker Substance History Hx of Prescription Med Misuse Over the Past 12 Months: No Hx of Over the Counter Med Misuse Over the Past 12 Months: No Hx of Inhalent Misuse Over the Past 12 Months: No Hx of Organic Substance Use Over the Past 12 Months: No Hx of Illegal Substances/Street Drug Use Over Past 12 Months: No Problems as a Result of Past Substance Use: None Identified Personal History Living Arrangements: Apartment Beliefs That Will Affect Care: None Patient History Medical History Pneumonia Seizure-like activity Sickle cell anemia (Chronic) Sickle cell crisis Surgical History No pertinent past surgical history Family History Mother Hypertension Father Ulcer Other Family history non-contributory Social History Preferred Language: Yoruba Communication Ability: Effective Quality Control Assistant Required: No Beliefs That Will Affect Care: None marital status: Single Current Living Situation: Other Current Living Situation Comment: apartment with roommates 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 current occupation: [employer] major Feels Safe at Home: Yes Smoking Status: Never smoker Second Hand Exposure: No ; Hx Alcohol Use: No Hx Substance Use: No Physical Exam Vital Signs (Past 24 Hours): Last Vital Signs Temp 36.7 C 02/04/19 06:00 Pulse 65 02/04/19 06:00 Resp 14 02/04/19 06:00 BP 98/62 L 02/04/19 06:00 Pulse Ox 99 02/03/19 20:18 Results & Data Laboratory Results Laboratory Results - last 24 hr 02/03/19 02/03/19 02/03/19 17:32 17:32 17:41 WBC RBC Hgb Hct MCV MCH MCHC RDW Std Deviation RDW Coeff of Nando Plt Count MPV Immature Gran % (Auto) Neut % (Auto) Lymph % (Auto) [place] % (Auto) Eos % (Auto) Baso % (Auto) Immature Gran # (Auto) Neut # (Auto) Lymph # (Auto) [place] # (Auto) Eos # (Auto) Baso # (Auto) Absolute Nucleated RBC Nucleated RBC % (auto) Target Cells Sodium Potassium Chloride Carbon Dioxide Anion Gap BUN Creatinine Est Cr Clr Drug Dosing Est GFR ( Amer) Est GFR (Non-Af Amer) BUN/Creatinine Ratio Glucose Calcium Total Bilirubin AST ALT Alkaline Phosphatase Total Protein Albumin Globulin Albumin/Globulin Ratio TSH HCG, Qual Negative Urine Color Yellow Urine Appearance Clear Urine pH 6.5 Ur Specific [place] 1.011 Urine Protein Negative Urine Glucose (UA) Negative Urine Ketones Negative Urine Blood Negative Urine Nitrite Negative Urine Bilirubin Negative Urine Urobilinogen Negative Ur Leukocyte Esterase Negative Salicylates Urine Opiates Screen Neg Ur Methadone, Qual Neg Acetaminophen Urine Barbiturates Neg Ur Phencyclidine (PCP) Neg U Amphetamin/Meth Scrn Neg MDMA (Ecstasy) Screen Neg U Benzodiazepines Scrn Neg Ur Cocaine Metabolite Neg U Marijuana (THC) Screen Neg Ethyl Alcohol mg/dL 02/03/19 02/03/19 02/03/19 17:41 17:41 17:41 WBC 5.52 RBC 2.96 L Hgb 9.2 L Hct 27.6 L MCV 93.2 MCH 31.1 MCHC 33.3 RDW Std Deviation 60.2 H RDW Coeff of Nando 17.7 H Plt Count 428 H MPV 9.8 Immature Gran % (Auto) 0.2 Neut % (Auto) 35.9 Lymph % (Auto) 52.0 [place] % (Auto) 8.7 Eos % (Auto) 2.7 Baso % (Auto) 0.5 Immature Gran # (Auto) 0.01 Neut # (Auto) 1.98 Lymph # (Auto) 2.87 [place] # (Auto) 0.48 Eos # (Auto) 0.15 Baso # (Auto) 0.03 Absolute Nucleated RBC 0.03 H Nucleated RBC % (auto) 0.6 Target Cells 1+ Sodium 138 Potassium 3.5 Chloride 108 H Carbon Dioxide 28 Anion Gap 2.0 L BUN 7 Creatinine 0.52 L Est Cr Clr Drug Dosing 164.7 Est GFR ( Amer) > 150.0 Est GFR (Non-Af Amer) 137.5 BUN/Creatinine Ratio 13.0 Glucose 88 Calcium 9.3 Total Bilirubin 1.8 H AST 43 H ALT 35 Alkaline Phosphatase 76 Total Protein 8.2 Albumin 3.9 Globulin 4.3 H Albumin/Globulin Ratio 0.9 TSH 1.120 HCG, Qual Urine Color Urine Appearance Urine pH Ur Specific [place] Urine Protein Urine Glucose (UA) Urine Ketones Urine Blood Urine Nitrite Urine Bilirubin Urine Urobilinogen Ur Leukocyte Esterase Salicylates Urine Opiates Screen Ur Methadone, Qual Acetaminophen Urine Barbiturates Ur Phencyclidine (PCP) U Amphetamin/Meth Scrn MDMA (Ecstasy) Screen U Benzodiazepines Scrn Ur Cocaine Metabolite U Marijuana (THC) Screen Ethyl Alcohol mg/dL 02/03/19 17:41 WBC RBC Hgb Hct MCV MCH MCHC RDW Std Deviation RDW Coeff of Nando Plt Count MPV Immature Gran % (Auto) Neut % (Auto) Lymph % (Auto) [place] % (Auto) Eos % (Auto) Baso % (Auto) Immature Gran # (Auto) Neut # (Auto) Lymph # (Auto) [place] # (Auto) Eos # (Auto) Baso # (Auto) Absolute Nucleated RBC Nucleated RBC % (auto) Target Cells Sodium Potassium Chloride Carbon Dioxide Anion Gap BUN Creatinine Est Cr Clr Drug Dosing Est GFR ( Amer) Est GFR (Non-Af Amer) BUN/Creatinine Ratio Glucose Calcium Total Bilirubin AST ALT Alkaline Phosphatase Total Protein Albumin Globulin Albumin/Globulin Ratio TSH HCG, Qual Urine Color Urine Appearance Urine pH Ur Specific [place] Urine Protein Urine Glucose (UA) Urine Ketones Urine Blood Urine Nitrite Urine Bilirubin Urine Urobilinogen Ur Leukocyte Esterase Salicylates Urine Opiates Screen Ur Methadone, Qual Acetaminophen Urine Barbiturates Ur Phencyclidine (PCP) U Amphetamin/Meth Scrn MDMA (Ecstasy) Screen U Benzodiazepines Scrn Ur Cocaine Metabolite U Marijuana (THC) Screen Ethyl Alcohol mg/dL < 3.0 Current Inpatient Medications Current Inpatient Medications: Current Inpatient Medications Acetaminophen (Tylenol) 650 mg PO Q4H PRN PRN Reason: Headache or Minor Fever Stop: 03/05/19 20:58 Al Hydrox/Mg Hydrox/Simethicone (Maalox) 30 ml PO Q4H PRN PRN Reason: GI Upset Stop: 03/05/19 20:58 Bismuth Subsalicylate (Kaopectate) 15 ml PO PRN PRN PRN Reason: Loose Stool Stop: 03/05/19 20:58 Escitalopram Oxalate (Lexapro Tab) 10 mg PO QAM [facility] Stop: 03/06/19 08:59 Hydroxyurea (Hydrea) 500 mg PO BID [facility] Stop: 03/05/19 20:59 Last Admin: 02/03/19 22:03 Dose: 500 mg Documented by: Hydroxyzine HCl (Vistaril) 50 mg PO HSZ PRN PRN Reason: Insomnia Stop: 03/05/19 21:14 Hydroxyzine HCl (Vistaril) 25 mg PO Q4H PRN PRN Reason: Anxiety Stop: 03/05/19 21:14 Lamotrigine (Lamictal) 50 mg PO BID [facility] Stop: 03/05/19 20:59 Last Admin: 02/03/19 22:03 Dose: 50 mg Documented by: Magnesium Hydroxide (Milk Of Magnesia) 30 ml PO DAILY PRN PRN Reason: Constipation Stop: 03/05/19 20:58 Risperidone (Risperdal) 1 mg PO DAILY [facility] Stop: 03/06/19 08:59 Sodium Chloride ([place] Nasal) 1 - 2 sprays NA PRN PRN PRN Reason: Nasal Dryness/Congestion Stop: 03/05/19 20:58 Tramadol HCl (Ultram) 50 mg PO TID PRN PRN Reason: Pain Stop: 03/05/19 20:59
[2019-02-04] MEDS: risperiDONE 1 MG TABLET PO SCH (09:35)
[2019-02-04] MEDS: HYDROXYUREA 500 MG CAP PO SCH ×2 (09:35→21:01)
[2019-02-04] MEDS: lamoTRIgine 25 MG TAB PO SCH ×2 (09:35→21:01)
[2019-02-04] MEDS: ESCITALOPRAM OXALATE 10 MG TAB PO SCH (09:35)
--- NOTE | 2019-02-04 09:39 | History & Physical ---
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 There is a lot she keeps in and is unwilling to disclose, and she has insight into the fact that she has abandonment issues which leads to difficulty trusting others/opening up. Her symptoms are exacerbated by poor medication and outpatient treatment adherence in general, only taking medications about 2 days a week, and has not followed through with previous referrals for therapy in the community. She does have good support from her sister and is doing well academically. Inpatient treatment is medically necessary due to the severity of her symptoms and risk for suicide if discharged without medicating risk factors. (1) Suicide gesture: 02/04 -continue voluntary inpatient treatment. -Encourage group and therapy attendance and participation. Work on healthy coping skills and discharge safety plan. -Coordinate with outpatient clinicians (therapist and Psychiatrist Dr. Vicente). -Recommend family meeting with parents in [facility], or sister who lives near [place]. Encounter type: initial encounter Qualified Code(s): X83.8XXA - Intentional self-harm by other specified means, initial encounter Present on Admission?: Yes (2) Depression: 02/04 -get records from Dr. Vicente to clarify previous diagnoses and treatment. Continue home medications: Escitalopram 10 mg daily and risperidone 1 mg daily. Patient has been nonadherent, taking medications only twice a week. Reviewed risks of continued nonadherence today, including worsening of symptoms. Continue with motivational interviewing and work on a plan to improve adherence and identify barriers to engaging fully in treatment. -No history of fasting lipid profile/glucose, so will order for tomorrow for monitoring on an atypical antipsychotic. Depression Type: major depressive disorder Major depression recurrence: recurrent Active/Remission status: currently active Major depression episode severity: severe Psychotic features: without psychotic features Qualified Code(s): F33.2 - Major depressive disorder, recurrent severe without psychotic features Present on Admission?: Yes (3) Borderline personality disorder: Continue to provide psychoeducation, utilize DBT techniques/consistent boundaries, and refer for a DBT informed therapist in the community. Present on Admission?: Yes (4) Sickle cell anemia: Continue home doses of hydroxyurea and tramadol. Just discharged last week after 4-day hospitalization for sickle cell crisis, which caused anemia and diffuse musculoskeletal pain. She received blood transfusion, was started on tramadol, and hydroxyurea dose was increased. She was instructed to follow-up with her manager reading in [place] over the winter break, and then Dr. Mccoy when she returns to campus in February. Sickle-cell associated disorders: with unspecified crisis Qualified Code(s): D57.00 - Hb-SS disease with crisis, unspecified Present on Admission?: Yes (5) Seizure-like activity: 02/04 -continue lamotrigine 50 mg twice daily. Patient educated regarding the risks of poor adherence with this medication, including worsening mood, increased risk of seizure, and Giordano-Logan syndrome. She saw Dr. Oquendo in 11/2018 who started this medication, but denies that she has followed up with a neurologist. We will need to clarify this and determine whom she should be seen in follow-up. I like the choice of lamotrigine as it will also help with depression and mood stability, but if she is unable to commit to taking it as pr escribed, the risks may outweigh the benefits. Present on Admission?: Yes Inventory Assets Strengths: Supportive sister, good student Needs: Medication adherence, outpatient treatment adherence Risk Factors Assessment Male: No : No Do You Have Access To A Gun?: No Health Problems: Yes Mental Health Diagnoses: Yes Substance Use Disorders: No Previous Attempt: Yes Previous Attempt; Highly Lethal: Yes Previous Attempt; Planned: Yes Previous Attempt; Didn't Tell Anyone: Yes Family History of Suicide: No Previous Psychiatric Hospitalization: Yes Hopelessness: Yes Smoker: No Protective Factors Assessment Confucianism Beliefs: Yes : No Responsible for Young Children: No Employed: No Stable Relationships: Yes Supportive Family: No (Has not told her parents about her mental health issues) Good Rapport with Provider: Yes Psychiatric History Identifying Data ADÁN PEOPLES is a 18-year-old F [employer] student from [place] who has a history of depression and personality disorder, and was admitted on 02/03/19 20:11 on a 201 voluntary commitment for depression and suicidality. Chief Complaint "Uh, haha, I had an appointment last week with the therapist, and he gave me a safety card, and I told him safety cards don't really work". History of Present Illness Patient presented to the ER yesterday, 02/03/2019, on referral from [facility] after she was seen for an urgent appointment for worsening mood, hopelessness, and suicidal thoughts. She also had an urgent session on 01/28/2019 on referral from [facility], where she was seen for follow-up after hospitalization for sickle cell crisis. She said she was "shoveled into" therapy by [facility], and although she knew therapy would be helpful for her, didn't want to engage in treatment. She reported depressed mood and difficulty following through on things, had been referred to therapy but only went to one session, and felt she'd tried everything and nothing worked for her. She admitted to poor medication adherence, stating she often forgets to take her meds. She reported a lot of stressors, but did not want to go into details, although indicated that around age 11 she started having mental health problems. At that time, she became very interested and devoted to her april, spiritual rebirth, and Hindu. She says she was "obsessed with hearing God's voice." she was able to create a safety plan, but then returned to [facility] 6 days later reporting a suicide attempt in the interim. She said that over the weekend she had been feeling distressed over failure to complete academic assignments and decided to "end it all." She started to overdose on pain medications, putting the pills in her mouth, but then spat them out. She endorsed auditory hallucinations of voices of hinduism authorities, which she related to her identity as a "born-again Yazidism." She has been experiencing them since age 11, when her mother took her to various april-based healers in [facility]. She experiences the voices as critical, and endorsed feelings of guilt that she is an evil person. She described viewing things as "black and white," and her affect was incongruent, laughing and smiling while discussing her distress, and making comments such as "I kind of almost killed myself this weekend." She reported several previous suicide attempts as detailed below. Diagnoses include personality disorder and depression. Although she told [facility] she did not feel she needed inpatient treatment, she agreed to voluntary hospitalization after discussion in the ER. While there, she endorsed feelings of loneliness, helplessness, and fatigue. She said she did not feel comfortable explaining why she tried to end her life, but that it was partly related to schoolwork. She said her sister who lives near [place] and friends are part of her safety plan, but had not utilized them and did not want to contact her parents in [place] as they do not know about her depression. On my assessment, she states she "almost committed suicide" either 01/29 or 01/30 "I can't remember," as she started to overdose on oxycodone and Tylenol, swallowed #2 Tylenol, and planned to keep taking more of each medication, had #3 oxycodone in her mouth but then "just threw them out, stopped because she thought about how her parents would feel. Says she felt suicidal because "I did something wrong, don't want to do into it." With encouragement she is able to state she did something "wrong religiously." States she "doesn't actually care about myself or think that anyone else cares about me." States she also thought about her therapist at [facility] and "thought that someone actually cared about me," and decided "maybe not today." She initially said she doesn't believe "safety cards work," as she had completed a safety plan with [facility] last week, but now thinks they work "sometimes." Reports suicidal thoughts at least once a week, for example "it would be nice if this car ran me over," or "it would be nice not to be alive." States she has access to "lots of pain pills" and often thinks about taking those. She called her sister who is supportive, told her what had happened, but didn't seek any medical treatment. Describes mood as "stressed" for the past several months, "depressed," guilty, with poor motivation, energy, and focus. Sleep is poor due to pain, can't get comfortable, "and my mind's uncomfortable." Reports anxiety with worries about school, social situations, interactions with other people. States she has "abandonment issues, think people don't like me." Also reports chronic feelings of emptiness. Started seeing Dr. Vicente last month, had been off her meds "for a while," and he restarted risperidone and escitalopram (was previously on sertraline). Lamotrigine was prescribed 11/2018 when hospitalized and saw Dr. Oquendo for seizures, but reports she is only taking her medications twice a week, "because I'm tired of taking medicines, I'm sickle cell, so I've been on medicines most of my life." States she doesn't have a neurologist or a PCP, and hasn't followed up with anyone. States older sister is primary support, has one friend who is "maybe" a support. Doesn't talk to parents about her issues. Reports "a presence, not exactly a voice" that talks to her "inside, in my psyche," that "sometimes sounds like my voice" and tells her "don't do this, don't wear that top or these shoes," or will tell her not to do things "that are bad." Is present most of the time, but often "fades to the background." Denies other forms of AVH and paranoia, grandiosity, ideas of reference. States she often thinks she is "going to go to [facility] She states she "honestly does not know" if she will by suicide, "I'd like to say low, but it's been really bad this semester." She thinks it would be helpful to "find a therapist for penitentiary, who will really care about me, be there for me." Barriers are "I'm really bad at keeping up with medical stuff, appointments, and the fear of putting stuff out there, what if it doesn't work out, it's hard to think that anyone actually cares." Denies symptoms of PTSD, HI (but reports frequent frustration with others, urges to "shake them" because she is in pain). Past Psychiatric History Previous Psych History: First started treatment in 2016 while at [facility]; saw a therapist and psychiatrist. Thinks she was diagnosed with "psychosis and major depressive." Saumya Trejo at [facility] for case management fall 2018. Poor adherence with outpatient treatment; 1 therapy appointment fall 2018 with unknown person downtown, but did not continue. Reports poor adherence to medications. Current Psychiatric Diagnosis: Depression and personality disorder Outpatient Services: Psychiatrist: Dr. Vicente since last month, previously saw psychiatrist at [facility] No therapist, but 2 recent crisis appointments at [facility]. Previous Psych Admissions: [facility] x 2 after suicide attempts as above. Do You Have Access To A Gun?: No History of Previous Suicide Attempt: Yes Describe Attempts in the Past: 3 previous attempts, and near overdose yesterday Past Medication Trials: sertraline Additional Notes: First suicide attempt at age 15 by ingesting a combination of lemonade and bleach. She sent a video of herself drinking it to a friend, who called police. 2 suicide attempts by overdosing on pain medications (ages 16 and 17). She did not tell anyone after the second suicide attempt, but contacted her croze cutter helper after the third attempt, who called police. She was hospitalized at [facility] after the first and third attempts, and stated she "hated" the experience. Cut her wrist in 2018, but stated it was too painful to actually kill herself. Past Head Trauma/Neuro History History of Concussion/Seizure: Yes (h/o unknown seizure disorder) Allergies Allergy/AdvReac Type Severity Reaction Status Date / Time No Known Allergies Allergy Verified 01/20/19 23:19 Home Medications Home Medications Medication Instructions Recorded Confirmed Type escitalopram oxalate 10 mg PO DAILY 01/04/19 02/03/19 History risperidone 1 mg PO DAILY 01/04/19 02/03/19 History lamotrigine 50 mg PO BID 01/20/19 02/03/19 History hydroxyurea 500 mg PO BID #0 cap 01/25/19 02/03/19 Rx tramadol 50 mg PO TID PRN #10 tab 01/25/19 02/03/19 Rx Family History Family History of: None Alcohol History Hx of Alcohol Use Over the Past 12 Months: No AUDIT Total Score: 0 Smoking Use Have You Smoked or Used Tobacco Products in the Last 30 Days: No Smoking Status: Never smoker Substance History Hx of Prescription Med Misuse Over the Past 12 Months: No Hx of Over the Counter Med Misuse Over the Past 12 Months: No Hx of Inhalent Misuse Over the Past 12 Months: No Hx of Organic Substance Use Over the Past 12 Months: No Hx of Illegal Substances/Street Drug Use Over Past 12 Months: No Problems as a Result of Past Substance Use: None Identified Personal History Living Arrangements: Apartment Living Arrangements Comments: 3 "random" roommates off campus Born In: [place] Childhood: Grew up in [place], raised by both parents, who still live in [place]. Has 6 siblings, but doesn't speak to any of them except one sister "because my dad doesn't know how to keep a stable relationship." States father had a previous marriage with 2 children, then her mother and had 3 child mily, then left her mother and had another family. She doesn't have contact with her father, but talks to her mother most days. 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 States she doesn't really like school, but is planning to continue as "if I don't continue school, I go back to [place]." States her quality of life would be poor in [place] if she didn't have a college degree. History of medical withdrawal in 2017, and states she cannot withdrawal again or she will be sent home to [place]. 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 Beliefs That Will Affect Care: None marital status: Single Current Living Situation: Other Current Living Situation Comment: apartment with roommates 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 Feels Safe at Home: Yes Smoking Status: Never smoker Second Hand Exposure: No ; Hx Alcohol Use: No Hx Substance Use: No Review of Systems Review of Systems: All systems reviewed & are unremarkable except as noted in HPI & below Physical Exam Psychiatric: Orientation: alert and cooperative (partially) Apperance: appropriately dressed, appropriately groomed and appeared stated age Eye Contact: + fair eye contact Motor Behavior: steady gait and station and no abnormal motor movements Speech: normal rate/rhythm/volume of speech incongruent affect - laughs and smiles while discussing depression Mood: + depressed mood Thought Process: goal directed thought process Thought Content: + hopelessness and + guilt Suicidal Thoughts: + reports suicidal thoughts Homicidal Thoughts: denies homicidal thoughts Hallucinations: + auditory hallucinations; no visual hallucinations Cognition: recent memory grossly intact, attention grossly intact and language grossly intact Insight: + poor insight Judgement: + poor judgement Vital Signs (Past 24 Hours): Last Vital Signs Temp 36.7 C 02/04/19 06:00 Pulse 65 02/04/19 06:00 Resp 14 02/04/19 06:00 BP 98/62 L 02/04/19 06:00 Pulse Ox 99 02/03/19 20:18 Exam Statement: A physical exam was performed in the ER prior to admission to the unit by Dr. Robert Mobley. I accept that physical as correct/medical clearance for the inpatient physical exam. Results & Data Laboratory Results Laboratory Results - last 24 hr 02/03/19 02/03/19 02/03/19 17:32 17:32 17:41 WBC RBC Hgb Hct MCV MCH MCHC RDW Std Deviation RDW Coeff of Nando Plt Count MPV Immature Gran % (Auto) Neut % (Auto) Lymph % (Auto) Armstrong % (Auto) Eos % (Auto) Baso % (Auto) Immature Gran # (Auto) Neut # (Auto) Lymph # (Auto) Armstrong # (Auto) Eos # (Auto) Baso # (Auto) Absolute Nucleated RBC Nucleated RBC % (auto) Target Cells Sodium Potassium Chloride Carbon Dioxide Anion Gap BUN Creatinine Est Cr Clr Drug Dosing Est GFR ( Amer) Est GFR (Non-Af Amer) BUN/Creatinine Ratio Glucose Calcium Total Bilirubin AST ALT Alkaline Phosphatase Total Protein Albumin Globulin Albumin/Globulin Ratio TSH HCG, Qual Negative Urine Color Yellow Urine Appearance Clear Urine pH 6.5 Ur Specific Mesa 1.011 Urine Protein Negative Urine Glucose (UA) Negative Urine Ketones Negative Urine Blood Negative Urine Nitrite Negative Urine Bilirubin Negative Urine Urobilinogen Negative Ur Leukocyte Esterase Negative Salicylates Urine Opiates Screen Neg Ur Methadone, Qual Neg Acetaminophen Urine Barbiturates Neg Ur Phencyclidine (PCP) Neg U Amphetamin/Meth Scrn Neg MDMA (Ecstasy) Screen Neg U Benzodiazepines Scrn Neg Ur Cocaine Metabolite Neg U Marijuana (THC) Screen Neg Ethyl Alcohol mg/dL 02/03/19 02/03/19 02/03/19 17:41 17:41 17:41 WBC 5.52 RBC 2.96 L Hgb 9.2 L Hct 27.6 L MCV 93.2 MCH 31.1 MCHC 33.3 RDW Std Deviation 60.2 H RDW Coeff of Nando 17.7 H Plt Count 428 H MPV 9.8 Immature Gran % (Auto) 0.2 Neut % (Auto) 35.9 Lymph % (Auto) 52.0 Armstrong % (Auto) 8.7 Eos % (Auto) 2.7 Baso % (Auto) 0.5 Immature Gran # (Auto) 0.01 Neut # (Auto) 1.98 Lymph # (Auto) 2.87 Armstrong # (Auto) 0.48 Eos # (Auto) 0.15 Baso # (Auto) 0.03 Absolute Nucleated RBC 0.03 H Nucleated RBC % (auto) 0.6 Target Cells 1+ Sodium 138 Potassium 3.5 Chloride 108 H Carbon Dioxide 28 Anion Gap 2.0 L BUN 7 Creatinine 0.52 L Est Cr Clr Drug Dosing 164.7 Est GFR ( Amer) > 150.0 Est GFR (Non-Af Amer) 137.5 BUN/Creatinine Ratio 13.0 Glucose 88 Calcium 9.3 Total Bilirubin 1.8 H AST 43 H ALT 35 Alkaline Phosphatase 76 Total Protein 8.2 Albumin 3.9 Globulin 4.3 H Albumin/Globulin Ratio 0.9 TSH 1.120 HCG, Qual Urine Color Urine Appearance Urine pH Ur Specific Mesa Urine Protein Urine Glucose (UA) Urine Ketones Urine Blood Urine Nitrite Urine Bilirubin Urine Urobilinogen Ur Leukocyte Esterase Salicylates Urine Opiates Screen Ur Methadone, Qual Acetaminophen Urine Barbiturates Ur Phencyclidine (PCP) U Amphetamin/Meth Scrn MDMA (Ecstasy) Screen U Benzodiazepines Scrn Ur Cocaine Metabolite U Marijuana (THC) Screen Ethyl Alcohol mg/dL 02/03/19 17:41 WBC RBC Hgb Hct MCV MCH MCHC RDW Std Deviation RDW Coeff of Nando Plt Count MPV Immature Gran % (Auto) Neut % (Auto) Lymph % (Auto) Armstrong % (Auto) Eos % (Auto) Baso % (Auto) Immature Gran # (Auto) Neut # (Auto) Lymph # (Auto) Armstrong # (Auto) Eos # (Auto) Baso # (Auto) Absolute Nucleated RBC Nucleated RBC % (auto) Target Cells Sodium Potassium Chloride Carbon Dioxide Anion Gap BUN Creatinine Est Cr Clr Drug Dosing Est GFR ( Amer) Est GFR (Non-Af Amer) BUN/Creatinine Ratio Glucose Calcium Total Bilirubin AST ALT Alkaline Phosphatase Total Protein Albumin Globulin Albumin/Globulin Ratio TSH HCG, Qual Urine Color Urine Appearance Urine pH Ur Specific Mesa Urine Protein Urine Glucose (UA) Urine Ketones Urine Blood Urine Nitrite Urine Bilirubin Urine Urobilinogen Ur Leukocyte Esterase Salicylates Urine Opiates Screen Ur Methadone, Qual Acetaminophen Urine Barbiturates Ur Phencyclidine (PCP) U Amphetamin/Meth Scrn MDMA (Ecstasy) Screen U Benzodiazepines Scrn Ur Cocaine Metabolite U Marijuana (THC) Screen Ethyl Alcohol mg/dL < 3.0 Current Inpatient Medications Current Inpatient Medications: Current Inpatient Medications Acetaminophen (Tylenol) 650 mg PO Q4H PRN PRN Reason: Headache or Minor Fever Stop: 03/05/19 20:58 Al Hydrox/Mg Hydrox/Simethicone (Maalox) 30 ml PO Q4H PRN PRN Reason: GI Upset Stop: 03/05/19 20:58 Bismuth Subsalicylate (Kaopectate) 15 ml PO PRN PRN PRN Reason: Loose Stool Stop: 03/05/19 20:58 Escitalopram Oxalate (Lexapro Tab) 10 mg PO QAM [facility] Stop: 03/06/19 08:59 Hydroxyurea (Hydrea) 500 mg PO BID [facility] Stop: 03/05/19 20:59 Last Admin: 02/03/19 22:03 Dose: 500 mg Documented by: Hydroxyzine HCl (Vistaril) 50 mg PO HSZ PRN PRN Reason: Insomnia Stop: 03/05/19 21:14 Hydroxyzine HCl (Vistaril) 25 mg PO Q4H PRN PRN Reason: Anxiety Stop: 03/05/19 21:14 Lamotrigine (Lamictal) 50 mg PO BID [facility] Stop: 03/05/19 20:59 Last Admin: 02/03/19 22:03 Dose: 50 mg Documented by: Magnesium Hydroxide (Milk Of Magnesia) 30 ml PO DAILY PRN PRN Reason: Constipation Stop: 03/05/19 20:58 Risperidone (Risperdal) 1 mg PO DAILY [facility] Stop: 03/06/19 08:59 Sodium Chloride (Storey Nasal) 1 - 2 sprays NA PRN PRN PRN Reason: Nasal Dryness/Congestion Stop: 03/05/19 20:58 Tramadol HCl (Ultram) 50 mg PO TID PRN PRN Reason: Pain Stop: 03/05/19 20:59
[2019-02-05 07:53] LABS: Glucose Fasting 94 mg/dl (70-99)
[2019-02-05 07:59] LABS: Chol HDL Ratio 3; Cholesterol 149 mg/dl (0-200); HDL Cholesterol 47 mg/dl; LDL Cholesterol Calculated 87 mg/dl; Triglycerides 77 mg/dl (0-150); VLDL Cholesterol 15 mg/dl
[2019-02-05] MEDS: lamoTRIgine 25 MG TAB PO SCH ×2 (08:57→21:18)
[2019-02-05] MEDS: ESCITALOPRAM OXALATE 10 MG TAB PO SCH (08:57)
[2019-02-05] MEDS: HYDROXYUREA 500 MG CAP PO SCH ×2 (08:57→21:18)
[2019-02-05] MEDS: risperiDONE 1 MG TABLET PO SCH (08:58)
--- NOTE | 2019-02-05 10:04 | Psychiatric Progress Note ---
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 There is a lot she keeps in and is unwilling to disclose, and she has insight into the fact that she has abandonment issues which leads to difficulty trusting others/opening up. Her symptoms are exacerbated by poor medication and outpatient treatment adherence in general, only taking medications about 2 days a week, and has not followed through with previous referrals for therapy in the community. She does have good support from her sister and is doing well academically. Inpatient treatment is medically necessary due to the severity of her symptoms and risk for suicide if discharged without medicating risk factors. (1) Suicide gesture: 02/04 -continue voluntary inpatient treatment. -Encourage group and therapy attendance and participation. Work on healthy coping skills and discharge safety plan. -Coordinate with outpatient clinicians (therapist and Psychiatrist Dr. Vicente). -Recommend family meeting with parents in [facility], or sister who lives near [place]. 02/05 - Pt denying SI, but has so far demonstrated little engagement in treatment in order to prevent impulsive actions in the future which may threaten health a nd safety - Family meeting is being recommended, but has not been scheduled (2) Depression: 02/04 -get records from Dr. Vicente to clarify previous diagnoses and treatment. Continue home medications: Escitalopram 10 mg daily and risperidone 1 mg daily. Patient has been nonadherent, taking medications only twice a week. Reviewed risks of continued nonadherence today, including worsening of symptoms. Continue with motivational interviewing and work on a plan to improve adherence and identify barriers to engaging fully in treatment. -No history of fasting lipid profile/glucose, so will order for tomorrow for monitoring on an atypical antipsychotic. 02/05 - Continue current medication regimen as above, patient able to verbalize some ideas for being more compliant with medications at home - Fasting glucose and lipid panel reviewed with patient - all values WNL - Continue to encourage engagement in group and recreational programming, as patient demonstrated very limited participation yesterday - Encourage development of healthy coping strategies and completion of a safety plan (3) Borderline personality disorder: Continue to provide psychoeducation, utilize DBT techniques/consistent boundaries, and refer for a DBT informed therapist in the community. (4) Sickle cell anemia: Continue home doses of hydroxyurea and tramadol. Just discharged last week after 4-day hospitalization for sickle cell crisis, which caused anemia and diffuse musculoskeletal pain. She received blood transfusion, was started on tramadol, and hydroxyurea dose was increased. She was instructed to follow-up with her tectonophysicist in [place] over the winter break, and then Dr. Mccoy when she returns to campus in February. (5) Seizure-like activity: 02/04 -continue lamotrigine 50 mg twice daily. Patient educated regarding the risks of poor adherence with this medication, including worsening mood, increased risk of seizure, and Giordano-Logan syndrome. She saw Dr. Oquendo in 11/2018 who started this medication, but denies that she has followed up with a neurologist. We will need to clarify this and determine whom she should be seen in follow-up. I like the choice of lamotrigine as it will also help with depression and mood stability, but if she is unable to commit to taking it as prescribed, the risks may outweigh the benefits. Inventory Assets Strengths: Supportive sister, good student Needs: Medication adherence, outpatient treatment adherence Risk Factors Assessment Male: No : No Do You Have Access To A Gun?: No Health Problems: Yes Mental Health Diagnoses: Yes Substance Use Disorders: No Previous Attempt: Yes Previous Attempt; Highly Lethal: Yes Previous Attempt; Planned: Yes Previous Attempt; Didn't Tell Anyone: Yes Family History of Suicide: No Previous Psychiatric Hospitalization: Yes Hopelessness: Yes Smoker: No Protective Factors Assessment Protestant Beliefs: Yes : No Responsible for Young Children: No Employed: No Stable Relationships: Yes Supportive Family: No (Has not told her parents about her mental health issues) Good Rapport with Provider: Yes Interval History Identifying Information ADÁN PEOPLES (TOMI) is a 18-year-old F [employer] student from [place] who has a history of depression and personality disorder, and was admitted on 02/03/19 20:11 on a 201 voluntary commitment for depression and suicidality. Chief Complaint "Well, yesterday? Most of the day I just slept." Review of Systems Notes Constitutional: reports increased fatigue Cardiovascular: denied Respiratory: denied Gastrointestinal: denied Neurological: denied Psychiatric: denies symptoms other than stated above Total of at least 10 systems reviewed, pertinent positives as above and in HPI. Sleep Information Total Hours of Sleep: 6.5 Sleep Comments: talked with peers till 2340, ate a bagged meal from the kitchen as requested then chatted with her roommate till she fell to sleep. Meal Information Percent Meal Consumed - Lunch: 75 Percent Meal Consumed - Dinner: 0 Nutrition Comment: pt ate meal prior to dinner Subjective Subjective Patient was seen & assessed and interval progress reviewed with treatment team. Staff reports the patient was poorly engaged yesterday, observed to be sleeping for most of the day. There is question of patient possibly having a phone meeting with her sister, whom she is reportedly spending winter break with. This meeting has not yet been scheduled. Patient did receive fasting labs this morning. Patient was seen today to assess progress since admission. Patient does admit that yesterday was not overly productive as "I mostly slept." Medication regimen was reviewed, along with recommendation that patient focus on routine compliance before dose adjustments are made. Patient does verbalize several ideas for improving her medication compliance, planning to utilize an application on her phone as a reminder, and hopeful to get a pill organizer which she can set up ahead of time for the week. Patient denies suicidal ideation, stating that she feels "great" today. Patient remains unable to clearly verbalize events that led to her acts of furtherance towards overdose, and was encouraged to focus on participation in group programming in order to acquire coping strategies and a safety plan that would prevent these things in the future. Patient was instructed on how a safety plan is used, and states "I know, I did one before." Patient does state that she feels as though part of her improvement is due to having conversations with her sister and mother, who she now feels are more supportive of her. Patient is willing to have a phone meeting with them; however, this meeting has not yet been scheduled. Patient is already eagerly requesting discharge; however, was encouraged to focus on active participation in group and completion of her safety plan. Patient was informed consistent demonstration of mood improvement would likely indicate true readiness for discharge. Patient denies other needs or concerns from our service at this time. Physical Exam Psychiatric Orientation: alert, oriented x 3 and cooperative (Superficially) Apperance: appropriately dressed, appropriately groomed and appeared stated age Eye Contact: good eye contact Motor Behavior: steady gait and station and no abnormal motor movements Speech: normal rate/rhythm/volume of speech Affect: euthymic affect (Rapid improvement from affect displayed yesterday) and mood congruent with affect Mood: no depressed mood ("I feel great") Thought Process: goal directed thought process, clear/coherent thought process and thought association intact Thought Content: + cognitive distortions (Likely consistent with borderline personality disorder diagnosis); no hopelessness, no worthlessness and no guilt Suicidal Thoughts: denies suicidal thoughts and denies suicidal intent Patient denies suicidal ideation; however, has yet to actively engage in completion of a safety plan Homicidal Thoughts: denies homicidal thoughts Hallucinations: no auditory hallucinations and no visual hallucinations Cognition: attention grossly intact and language grossly intact Insight: + limited insight Judgement: + fair judgement Vital Signs (Past 24 Hours) Last Vital Signs Temp 36.6 C 02/05/19 06:55 Pulse 80 02/05/19 06:56 Resp 14 02/05/19 06:55 BP 96/59 L 02/05/19 06:55 Pulse Ox 99 02/03/19 20:18 Results & Data Laboratory Results Laboratory Results - last 24 hr 02/05/19 07:15 Fasting Glucose 94 Triglycerides 77 Cholesterol 149 LDL Cholesterol, Calc 87 VLDL Cholesterol, Calc 15 HDL Cholesterol 47 Cholesterol/HDL Ratio 3 Current Inpatient Medications Current Inpatient Medications: Current Inpatient Medications Acetaminophen (Tylenol) 650 mg PO Q4H PRN PRN Reason: Headache or Minor Fever Stop: 03/05/19 20:58 Al Hydrox/Mg Hydrox/Simethicone (Maalox) 30 ml PO Q4H PRN PRN Reason: GI Upset Stop: 03/05/19 20:58 Bismuth Subsalicylate (Kaopectate) 15 ml PO PRN PRN PRN Reason: Loose Stool Stop: 03/05/19 20:58 Escitalopram Oxalate (Lexapro Tab) 10 mg PO QAM [facility] Stop: 03/06/19 08:59 Last Admin: 02/05/19 08:57 Dose: 10 mg Documented by: Hydroxyurea (Hydrea) 500 mg PO BID WALTER Stop: 03/05/19 20:59 Last Admin: 02/05/19 08:57 Dose: 500 mg Documented by: Hydroxyzine HCl (Vistaril) 50 mg PO HSZ PRN PRN Reason: Insomnia Stop: 03/05/19 21:14 Hydroxyzine HCl (Vistaril) 25 mg PO Q4H PRN PRN Reason: Anxiety Stop: 03/05/19 21:14 Lamotrigine (Lamictal) 50 mg PO BID WALTER Stop: 03/05/19 20:59 Last Admin: 02/05/19 08:57 Dose: 50 mg Documented by: Magnesium Hydroxide (Milk Of Magnesia) 30 ml PO DAILY PRN PRN Reason: Constipation Stop: 03/05/19 20:58 Risperidone (Risperdal) 1 mg PO DAILY WALTER Stop: 03/06/19 08:59 Last Admin: 02/05/19 08:58 Dose: 1 mg Documented by: Sodium Chloride ([place] Nasal) 1 - 2 sprays NA PRN PRN PRN Reason: Nasal Dryness/Congestion Stop: 03/05/19 20:58 Tramadol HCl (Ultram) 50 mg PO TID PRN PRN Reason: Pain Stop: 03/05/19 20:59 Mental Health & Subst Abuse Tx Psychiatrist Name of Psychiatrist: Dr. Bales Psychiatrist's Date of Appointment with Psychiatrist: 02/04/19 [facility]ment Comment[facility] [address] [facility] [address] [place] [address] Therapist Name of Therapist: LIVE Dopeman Name of Dopeman: Denies/None Post Discharge Appointments Primary Care Physician Name Of Family Doctor: [facility] Neurologist Name of Neurologist: Dr. Daria Hernandez Neurologist's Date of Appointment with Neurologist: 04/05/18 Time of Appointment with Neurologist: 10:00 Neurology Appointment Comment: [address], [facility] [place] [address] (1) Sickle cell anemia Sickle-cell associated disorders: with unspecified crisis Qualified Code(s): D57.00 - Hb-SS disease with crisis, unspecified (2) Suicide gesture Encounter type: initial encounter Qualified Code(s): X83.8XXA - Intentional self-harm by other specified means, initial encounter (3) Depression Active/Remission status: currently active Depression Type: major depressive disorder Major depression episode severity: severe Major depression recurrence: recurrent Psychotic features: without psychotic features Qualified Code(s): F33.2 - Major depressive disorder, recurrent severe without psychotic features
[2019-02-06] MEDS: risperiDONE 1 MG TABLET PO SCH (09:21)
[2019-02-06] MEDS: HYDROXYUREA 500 MG CAP PO SCH ×2 (09:21→20:53)
[2019-02-06] MEDS: ESCITALOPRAM OXALATE 10 MG TAB PO SCH (09:21)
[2019-02-06] MEDS: lamoTRIgine 25 MG TAB PO SCH ×2 (09:21→20:53)
--- NOTE | 2019-02-06 15:27 | Psychiatric Progress Note ---
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 There is a lot she keeps in and is unwilling to disclose, and she has insight into the fact that she has abandonment issues which leads to difficulty trusting others/opening up. Her symptoms are exacerbated by poor medication and outpatient treatment adherence in general, only taking medications about 2 days a week, and has not followed through with previous referrals for therapy in the community. She does have good support from her sister and is doing well academically. Inpatient treatment is medically necessary due to the severity of her symptoms and risk for suicide if discharged without medicating risk factors. (1) Suicide gesture: 02/04 -continue voluntary inpatient treatment. -Encourage group and therapy attendance and participation. Work on healthy coping skills and discharge safety plan. -Coordinate with outpatient clinicians (therapist and Psychiatrist Dr. Vicente). -Recommend family meeting with parents in [facility], or sister who lives near [place]. 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 Vicente to clarify previous diagnoses and treatment. Continue home medications: Escitalopram 10 mg daily and risperidone 1 mg daily. Patient has been nonadherent, taking medications only twice a week. Reviewed risks of continued nonadherence today, including worsening of symptoms. Continue with motivational interviewing and work on a plan to improve adherence and identify barriers to engaging fully in treatment. -No history of fasting lipid profile/glucose, so will order for tomorrow for monitoring on an atypical antipsychotic. 02/05 and 02/06 - Continue current medication regimen as above, patient able to verbalize some ideas for being more compliant with medications at home - Fasting glucose and lipid panel reviewed with patient - all values WNL - Continue to encourage engagement in group and recreational programming, as patient demonstrated very limited participation yesterday - Encourage development of healthy coping strategies and completion of a safety plan (3) Borderline personality disorder: Continue to provide psychoeducation, utilize DBT techniques/consistent boundaries, and refer for a DBT informed therapist in the community. (4) Sickle cell anemia: Continue home doses of hydroxyurea and tramadol. Just discharged last week after 4-day hospitalization for sickle cell crisis, which caused anemia and diffuse musculoskeletal pain. She received blood transfusion, was started on tramadol, and hydroxyurea dose was increased. She was instructed to follow-up with her die mechanic in [place] over the winter break, and then Dr. Mccoy when she returns to campus in February. (5) Seizure-like activity: 02/04 -continue lamotrigine 50 mg twice daily. Patient educated regarding the risks of poor adherence with this medication, including worsening mood, increased risk of seizure, and Giordano-Logan syndrome. She saw Dr. Oquendo in 11/2018 who started this medication, but denies that she has followed up with a neurologist. We will need to clarify this and determine whom she should be seen in follow-up. I like the choice of lamotrigine as it will also help with depression and mood stability, but if she is unable to commit to taking it as prescribed, the risks may outweigh the benefits. Inventory Assets Strengths: Supportive sister, good student Needs: Medication adherence, outpatient treatment adherence Risk Factors Assessment Male: No : No Do You Have Access To A Gun?: No Health Problems: Yes Mental Health Diagnoses: Yes Substance Use Disorders: No Previous Attempt: Yes Previous Attempt; Highly Lethal: Yes Previous Attempt; Planned: Yes Previous Attempt; Didn't Tell Anyone: Yes Family History of Suicide: No Previous Psychiatric Hospitalization: Yes Hopelessness: Yes Smoker: No Protective Factors Assessment Samaritan Beliefs: Yes : No Responsible for Young Children: No Employed: No Stable Relationships: Yes Supportive Family: No (Has not told her parents about her mental health issues) Good Rapport with Provider: Yes Interval History Identifying Information ADÁN PEOPLES (TOMI) is a 18-year-old [employer] student from [place] who has a history of depression and personality disorder, and was admitted on 02/03/19 20:11 on a 201 voluntary commitment for depression and suicidality. Chief Complaint "I'm alright". Review of Systems Sleep Information Total Hours of Sleep: 5 Sleep Comments: talked with peers till 2340, ate a bagged meal from the kitchen as requested then chatted with her roommate till she fell to sleep. Meal Information Percent Meal Consumed - Breakfast: 90 Percent Meal Consumed - Lunch: 100 Percent Meal Consumed - Dinner: 100 Nutrition Comment: pt ate meal prior to dinner Subjective Subjective Patient was seen & assessed and interval progress reviewed with treatment team. Patient was observed in community meeting and stated her mood is "Tired" and rated her mood as 8/10 (10 best, 0 most depressed), and that her treatment goal today is to find a therapist, and her daily goal is to "stay awake." Per nursing phone call with sister and patient went well, sister affirmed patient can come to stay with her, sister is not able to come until tomorrow. Patient's mother is apparently coming from [facility] to visit. Patient is disappointed that PA and this MD decided to delay discharge until she can go with family member. Patient seen with ROLA Sharma who performed the verbal interview and this provider served observer and scribe role with some limited inputs. Patient notes she is anxious being here and wishes she could go, and shares in a very circular way how the roots of her depression are not going to be worked out in a 5day stay and that is the reason she has been less engaged "because we can't fix all of that here." She was receptive to ROLA Sharma's summary that the unit serves as place of safety, and practice sharing thoughts and feelings to prepare the way to begin her outpatient therapy relationships. Patient is minimally swayed to be convinced that this is meaningful. She states she is not having SI at this time. She is motivated to leave the inpatient unit but understands the need for having others whom she can reach out to in place, e.g. sister to check on her, aftercare appt with Dr Bales now established 02/25/19 at 3:30, Kobe Kennedy for therapy 03/08/19. However appt with Student Care and Advocacy to discuss next steps regarding school this semester and next semester will have to occur after the herron reopens in February. She then shows some tearfulness and when provider asks about her tears she says she is disappointed because she went to a 1 hour therapy visit and shared how the safety plan built at the first crisis visit worked, and instead the disclosure resulted in a 5day admission and she feels stuck knowing that she would have been done with her finals on Friday and at her sister's by THr and now has work to do over the break and cannot leave until tomorrow. Provider thanked her for her candidness as this is the most transparently she has shared in the few days she has been here. Encouraged her to consider dialogue wtih her outpatient providers about how to discuss safety so she can be honest and yet not withhold out of fear. SHe nods but also notes she feels panicked now and understands plan is for discharge tomorrow. SHe denies SE to medications. Earlier in interveiw she denied other physical concerns on ROS Physical Exam Psychiatric Orientation: alert and oriented x 3 dressed in sweatshirt and hospital pants Eye Contact: good eye contact Motor Behavior: steady gait and station Speech: normal rate/rhythm/volume of speech Affect: + constricted affect tearful at end and shares more what is on her mind about the circumstances leading to this admission sad and anxious Thought Process: goal directed thought process and linear/logical thought process Thought Content: reality based without delusions Suicidal Thoughts: denies suicidal thoughts Homicidal Thoughts: denies homicidal thoughts Hallucinations: no auditory hallucinations and no visual hallucinations Cognition: recent memory grossly intact Estimated Intelligence: average estimated intelligence Insight: good insight Judgement: good judgement Vital Signs (Past 24 Hours) Last Vital Signs Temp 36.7 C 02/06/19 06:54 Pulse 85 02/06/19 06:55 Resp 18 02/06/19 06:54 BP 101/65 02/06/19 06:55 Pulse Ox 99 02/03/19 20:18 Results & Data Current Inpatient Medications Current Inpatient Medications: Current Inpatient Medications Acetaminophen (Tylenol) 650 mg PO Q4H PRN PRN Reason: Headache or Minor Fever Stop: 03/05/19 20:58 Al Hydrox/Mg Hydrox/Simethicone (Maalox) 30 ml PO Q4H PRN PRN Reason: GI Upset Stop: 03/05/19 20:58 Bismuth Subsalicylate (Kaopectate) 15 ml PO PRN PRN PRN Reason: Loose Stool Stop: 03/05/19 20:58 Escitalopram Oxalate (Lexapro Tab) 10 mg PO QAM WALTER Stop: 03/06/19 08:59 Last Admin: 02/06/19 09:21 Dose: 10 mg Documented by: Hydroxyurea (Hydrea) 500 mg PO BID WALTER Stop: 03/05/19 20:59 Last Admin: 02/06/19 09:21 Dose: 500 mg Documented by: Hydroxyzine HCl (Vistaril) 50 mg PO HSZ PRN PRN Reason: Insomnia Stop: 03/05/19 21:14 Hydroxyzine HCl (Vistaril) 25 mg PO Q4H PRN PRN Reason: Anxiety Stop: 03/05/19 21:14 Lamotrigine (Lamictal) 50 mg PO BID WALTER Stop: 03/05/19 20:59 Last Admin: 02/06/19 09:21 Dose: 50 mg Documented by: Magnesium Hydroxide (Milk Of Magnesia) 30 ml PO DAILY PRN PRN Reason: Constipation Stop: 03/05/19 20:58 Risperidone (Risperdal) 1 mg PO DAILY WALTER Stop: 03/06/19 08:59 Last Admin: 02/06/19 09:21 Dose: 1 mg Documented by: Sodium Chloride (Beaver Nasal) 1 - 2 sprays NA PRN PRN PRN Reason: Nasal Dryness/Congestion Stop: 03/05/19 20:58 Tramadol HCl (Ultram) 50 mg PO TID PRN PRN Reason: Pain Stop: 03/05/19 20:59 Mental Health & Subst Abuse Tx Psychiatrist Name of Psychiatrist: Dr. Bales Psychiatrist's Date of Appointment with Psychiatrist: 02/04/19 Psychiatric Appointment Comment: [address], [place] [address] Therapist Name of Therapist: Kobe Kennedy Therapist's Date of Therapist Appointment: 03/08/19 Time of Therapist Appointment: 11:00 a.m. Therapy Appointment Comment: [address], [place] [address] Proofsheet Corrector Name of Proofsheet Corrector: Denies/None Post Discharge Appointments Primary Care Physician Name Of Family Doctor: [facility] Primary Care Time of Appointment with PCP: Please follow up as needed Provider Appointment Comment: [facility] [place] [address] Neurologist Name of Neurologist: Dr. Daria Hernandez Neurologist's Date of Appointment with Neurologist: 04/05/18 Time of Appointment with Neurologist: 10:00 Neurology Appointment Comment: [address] [facility], [place] [address] Contact Information Discharge Discharge Address: [address], [address], [place] [address] (1) Suicide gesture Encounter type: initial encounter Qualified Code(s): X83.8XXA - Intentional self-harm by other specified means, initial encounter (2) Depression Active/Remission status: currently active Depression Type: major depressive disorder Major depression episode severity: severe Major depression recurrence: recurrent Psychotic features: without psychotic features Qualified Code(s): F33.2 - Major depressive disorder, recurrent severe without psychotic features (3) Sickle cell anemia Sickle-cell associated disorders: with unspecified crisis Qualified Code(s): D57.00 - Hb-SS disease with crisis, unspecified
[2019-02-07] MEDS: risperiDONE 1 MG TABLET PO SCH (09:08)
[2019-02-07] MEDS: HYDROXYUREA 500 MG CAP PO SCH (09:08)
[2019-02-07] MEDS: ESCITALOPRAM OXALATE 10 MG TAB PO SCH (09:08)
[2019-02-07] MEDS: lamoTRIgine 25 MG TAB PO SCH (09:08)
--- NOTE | 2019-02-07 10:00 | Discharge Summary ---
Date of Service February 07, 2019 History of Present Illness Patient presented to the ER yesterday, 02/03/2019, on referral from [facility] after she was seen for an urgent appointment for worsening mood, hopelessness, and suicidal thoughts. She also had an urgent session on 01/28/2019 on referral from [facility], where she was seen for follow-up after hospitalization for sickle cell crisis. She said she was "shoveled into" therapy by [facility], and although she knew therapy would be helpful for her, didn't want to engage in treatment. She reported depressed mood and difficulty following through on things, had been referred to therapy but only went to one session, and felt she'd tried everything and nothing worked for her. She admitted to poor medication adherence, stating she often forgets to take her meds. She reported a lot of stressors, but did not want to go into details, although indicated that around age 11 she started having mental health problems. At that time, she became very interested and devoted to her april, spiritual rebirth, and Jewish. She says she was "obsessed with hearing God's voice." she was able to create a safety plan, but then returned to [facility] 6 days later reporting a suicide attempt in the interim. She said that over the weekend she had been feeling distressed over failure to complete academic assignments and decided to "end it all." She started to overdose on pain medications, putting the pills in her mouth, but then spat them out. She endorsed auditory hallucina tions of voices of restorationist authorities, which she related to her identity as a "born-again Hindu." She has been experiencing them since age 11, when her mother took her to various april-based healers in [facility]. She experiences the voices as critical, and endorsed feelings of guilt that she is an evil person. She described viewing things as "black and white," and her affect was incongruen t, laughing and smiling while discussing her distress, and making comments such as "I kind of almost killed myself this weekend." She reported several previous suicide attempts as detailed below. Diagnoses include personality disorder and depression. Although she told [facility] she did not feel she needed inpatient treatment, she agreed to voluntary hospitalization after discussion in the ER. While there, she endorsed feelings of loneliness, helplessness, and fatigue. She said she did not feel comfortable explaining why she tried to end her life, but that it was partly related to schoolwork. She said her sister who lives near [place] and friends are part of her safety plan, but had not utilized them and did not want to contact her parents in [place] as they do not know about her depression. On my assessment, she states she "almost committed suicide" either 01/29 or 01/30 "I can't remember," as she started to overdose on oxycodone and Tylenol, swallowed #2 Tylenol, and planned to keep taking more of each medication, had #3 oxycodone in her mouth but then "just threw them out, stopped because she thought about how her parents would feel. Says she felt suicidal because "I did something wrong, don't want to do into it." With encouragement she is able to state she did something "wrong religiously." States she "doesn't actually care about myself or think that anyone else cares about me." States she also thought about her therapist at [facility] and "thought that someone actually cared about me," and decided "maybe not today." She initially said she doesn't believe "safety cards work," as she had completed a safety plan with [facility] last week, but now thinks they work "sometimes." Reports suicidal thoughts at least once a week, for example "it would be nice if this car ran me over," or "it would be nice not to be alive." States she has access to "lots of pain pills" and often thinks about taking those. She called her sister who is supportive, told her what had happened, but didn't seek any medical treatment. Describes mood as "stressed" for the past several months, "depressed," guilty, with poor motivation, energy, and focus. Sleep is poor due to pain, can't get comfortable, "and my mind's uncomfortable." Reports anxiety with worries about school, social situations, interactions with other people. States she has "abandonment issues, think people don't like me." Also reports chronic feelings of emptiness. Started seeing Dr. Vicente last month, had been off her meds "for a while," and he restarted risperidone and escitalopram (was previously on sertraline). Lamotrigine was prescribed 11/2018 [address] hospitalized and [address] Dr. Oquendo for seizures, but reports she is only taking her medications twice a week, "because I'm tired of taking medicines, I'm sickle cell, so I've been on medicines most of my life." States she doesn't have a neurologist or a PCP, and hasn't followed up with anyone. States older sister is primary support, has one friend who is "maybe" a support. Doesn't talk to parents about her issues. Reports "a presence, not exactly a voice" that talks to her "inside, in my psyche," that "sometimes sounds like my voice" and tells her "don't do this, don't wear that top or these shoes," or will tell her not to do things "that are bad." Is present most of the time, but often "fades to the background." Denies other forms of AVH and paranoia, grandiosity, ideas of reference. States she often thinks she is "going to go to [facility], [facility]." She states she "honestly does not know" if she will by suicide, "I'd like to say low, but it's been really bad this semester." She thinks it would be helpful to "find a therapist for supervisor testing, who will really care about me, be there for me." Barriers are "I'm really bad at keeping up with medical stuff, appointments, and the fear of putting stuff out there, what if it doesn't work out, it's hard to think that anyone actually cares." Denies symptoms of PTSD, HI (but reports frequent frustration with others, urges to "shake them" because she is in pain). Physical Exam Psychiatric Orientation: alert and oriented x 3 Apperance: appropriately dressed and appropriately groomed Eye Contact: + fair eye contact began avoiding direct eye contact as she verbalized frustration with discharge plans Motor Behavior: steady gait and station and no abnormal motor movements Speech: normal rate/rhythm/volume of speech Affect: + depressed affect, + tearful affect and + irritable affect Mood: + depressed mood ("being here is just making me more confused") and + irritable mood Thought Process: goal directed thought process, clear/coherent thought process, + perseveration (on feeling as though continued admission is increasing depressi on) and thought association intact Thought Content: + preoccupation (with verbalizing desire for discharge) and + cognitive distortions (consistent with borderline personality traits) Suicidal Thoughts: denies suicidal thoughts and denies suicidal intent Homicidal Thoughts: denies homicidal thoughts Hallucinations: no auditory hallucinations and no visual hallucinations Cognition: remote memory grossly intact, attention grossly intact and language grossly intact Estimated Intelligence: consistent with education level Insight: + fair insight Judgement: + fair judgement Vital Signs (Past 24 Hours) Last Vital Signs Temp 36.6 C 02/07/19 06:55 Pulse 86 02/07/19 06:56 Resp 18 02/07/19 06:55 BP 109/70 02/07/19 06:56 Pulse Ox 99 02/03/19 20:18 Principal Diagnosis - Major depressive disorder, severe, recurrent, without psychotic features - Borderline personality disorder Psychiatric Data 18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 Pt admitted to difficulty opening up with supports, often having trouble disclosing information about her emotions and negative thoughts. Patient did admit during her initial presentation to poor medication compliance, often only taking her medications 2 days a week. Due to these reports, her medication regimen was not adjusted and focus of treatment became ensuring consistency with medication dosing on an outpatient basis. Patient was able to verbalize plans to become more autonomous with this task; however, it is also reported that sister in the past had reminded her to take her medications as well. Over the course of the patient's hospitalization, she engaged in group and recreational programming. She was able to develop healthy coping strategies to target mood and anxiety symptoms. Her sister was also involved in her treatment, as patient consented to a phone meeting to review aftercare and safety planning. Discharge plan is that patient will be picked up by her sister, to spend the winter break at her sister's home. Discharge was reviewed with the sister, who denied any safety concerns and was agreeable with supporting patient in recommended treatment. An appointment was scheduled with patient's outpatient psychiatrist to allow for timely follow-up after discharge. Patient was also referred for an outpatient therapist, and appointment has been scheduled for mid February. During the patient's admission, she completed a safety plan and verbalized understanding of how to utilize it outside of the hospital setting. Patient was also referred to [facility] for any future needs related to her academics. Patient had been denying active suicidal ideation since time of admission; however, had some difficulty opening up about outpatient stressors. By the end of her hospitalization, she continued to deny suicidality and was able to share more about some of her stressors leading to this admission. Based on review of patient's case and their current presentation, risk of harm to self or others is no longer perceived to be acute. Management of symptoms on an outpatient basis seems the most appropriate and least restrictive setting. Pt seems appropriate for discharge with recommendation for consistent follow-up with outpatient psychiatric prescriber and therapist. Pt verbalized understanding of discharge plan reviewed and is agreeable with plan to be discharged to sister's home today, sister planning to provide transportation. Day of Discharge Assessment Patient's case was reviewed and discussed during morning report. Staff report the patient has been mildly more isolative, verbalizing disappointment that she has not yet been discharged. Despite this, it is reported she has continued to attend group programming. Pt was seen today to assess readiness for discharge, supervising psychiatrist Dr. Holly Webster was present for duration of encounter. Pt states that she is feeling "tired" today, verbalizing more restless sleep last evening than usual. She states that her mood is "ok" today, continuing to appropriately verbalize frustration with still being admitted and feeling as though this is "making my depression worse." Despite this, she denies recurrence of SI and continues to verbalize feeling safe to leave the hospital. Discharge medication recommendations were reviewed, as well as the discharge plan that patient's sister will be picking her up. Pt became rather tearful, and continued to appropriately express her frustration and requests to be discharged back to her apartment alone prior to her sister's anticipated arrival. Pt did express her thoughts in a meaningful way, and was reminded that we as staff hear her concerns but also need to align discharge plans with appropriate safety precautions. Pt was again informed that the discharge plan reviewed is for her to be discharged to the care of her sister this evening. Pt accepted the news despite her frustration and was able to continue appropriate conversation while the remainder of her discharge review was completed. Pt denies other needs from her treatment before she is discharged today. ROS: Constitutional: reports feeling "tired" today Cardiovascular: denied Respiratory: denied Gastrointestinal: denied Neurological: denied Psychiatric: denies symptoms other than stated above Total of at least 10 systems reviewed, pertinent positives as above and in HPI. Transition of Care Transition Of Care Record: was reviewed with the patient Advance Directives Advance Directives Information Provided: Yes Advance Directives: No Mental Health Advance Directive: No Advance Directives on File: No Living Will: No Power of Fireworks Display Specialist: No Advance Directives Reason:: Declines as Mental Health Visit. Risk Factors Assessment Presenting risk factors reviewed on discharge. Precipitating stressors mi tigated by: admission for inpatient psychiatric observation and treatment, recommendations to ensure medication compliance, attendance of therapeutic treatment groups, development of healthy and effective coping strategies, involvement of outpatient supports, completion of a safety plan, and education on diagnoses. Pt has demonstrated improvement in condition with regard to improvement in mood, resolution of suicidal ideation, and involvement of outpatient supports and discharge planning. At this time, patient is requesting discharge and is no longer considered to be at acute risk of harm to herself or others. Pt will be discharged with recommendation for ongoing outpatient psychiatric treatment. Male: No : No Do You Have Access To A Gun?: No Health Problems: Yes Mental Health Diagnoses: Yes Substance Use Disorders: No Previous Attempt: Yes Previous Attempt; Highly Lethal: Yes Previous Attempt; Planned: Yes Previous Attempt; Didn't Tell Anyone: Yes Family History of Suicide: No Previous Psychiatric Hospitalization: Yes Hopelessness: Yes Smoker: No Protective Factors Assessment Catholic Beliefs: Yes : No Responsible for Young Children: No Employed: No Stable Relationships: Yes Supportive Family: No (Has not told her parents about her mental health issues) Good Rapport with Provider: Yes Tobacco Cessation at Discharge Tobacco Cessation Medication Prescribed at Discharge: Not Applicable/Non-Smoker Total Time Total Time Spent: Greater Than 30 Minutes Total Time Includes: Examination of the patient, Discharge Planning, Medication Reconciliation and Communication with other providers Discharge Data Lab Results 02/03/19 02/03/19 02/03/19 17:32 17:32 17:41 WBC RBC Hgb Hct MCV MCH MCHC RDW Std Deviation RDW Coeff of Nando Plt Count MPV Immature Gran % (Auto) Neut % (Auto) Lymph % (Auto) [place] % (Auto) Eos % (Auto) Baso % (Auto) Immature Gran # (Auto) Neut # (Auto) Lymph # (Auto) [place] # (Auto) Eos # (Auto) Baso # (Auto) Absolute Nucleated RBC Nucleated RBC % (auto) Target Cells Sodium Potassium Chloride Carbon Dioxide Anion Gap BUN Creatinine Est Cr Clr Drug Dosing Est GFR ( Amer) Est GFR (Non-Af Amer) BUN/Creatinine Ratio Glucose Fasting Glucose Calcium Total Bilirubin AST ALT Alkaline Phosphatase Total Protein Albumin Globulin Albumin/Globulin Ratio Triglycerides Cholesterol LDL Cholesterol, Calc VLDL Cholesterol, Calc HDL Cholesterol Cholesterol/HDL Ratio TSH HCG, Qual Negative Urine Color Yellow Urine Appearance Clear Urine pH 6.5 Ur Specific Etoile 1.011 Urine Protein Negative Urine Glucose (UA) Negative Urine Ketones Negative Urine Blood Negative Urine Nitrite Negative Urine Bilirubin Negative Urine Urobilinogen Negative Ur Leukocyte Esterase Negative Salicylates Urine Opiates Screen Neg Ur Methadone, Qual Neg Acetaminophen Urine Barbiturates Neg Ur Phencyclidine (PCP) Neg U Amphetamin/Meth Scrn Neg MDMA (Ecstasy) Screen Neg U Benzodiazepines Scrn Neg Ur Cocaine Metabolite Neg U Marijuana (THC) Screen Neg Ethyl Alcohol mg/dL 02/03/19 02/03/19 02/03/19 17:41 17:41 17:41 WBC 5.52 RBC 2.96 L Hgb 9.2 L Hct 27.6 L MCV 93.2 MCH 31.1 MCHC 33.3 RDW Std Deviation 60.2 H RDW Coeff of Nando 17.7 H Plt Count 428 H MPV 9.8 Immature Gran % (Auto) 0.2 Neut % (Auto) 35.9 Lymph % (Auto) 52.0 [place] % (Auto) 8.7 Eos % (Auto) 2.7 Baso % (Auto) 0.5 Immature Gran # (Auto) 0.01 Neut # (Auto) 1.98 Lymph # (Auto) 2.87 [place] # (Auto) 0.48 Eos # (Auto) 0.15 Baso # (Auto) 0.03 Absolute Nucleated RBC 0.03 H Nucleated RBC % (auto) 0.6 Target Cells 1+ Sodium 138 Potassium 3.5 Chloride 108 H Carbon Dioxide 28 Anion Gap 2.0 L BUN 7 Creatinine 0.52 L Est Cr Clr Drug Dosing 164.7 Est GFR ( Amer) > 150.0 Est GFR (Non-Af Amer) 137.5 BUN/Creatinine Ratio 13.0 Glucose 88 Fasting Glucose Calcium 9.3 Total Bilirubin 1.8 H AST 43 H ALT 35 Alkaline Phosphatase 76 Total Protein 8.2 Albumin 3.9 Globulin 4.3 H Albumin/Globulin Ratio 0.9 Triglycerides Cholesterol LDL Cholesterol, Calc VLDL Cholesterol, Calc HDL Cholesterol Cholesterol/HDL Ratio TSH 1.120 HCG, Qual Urine Color Urine Appearance Urine pH Ur Specific Etoile Urine Protein Urine Glucose (UA) Urine Ketones Urine Blood Urine Nitrite Urine Bilirubin Urine Urobilinogen Ur Leukocyte Esterase Salicylates Urine Opiates Screen Ur Methadone, Qual Acetaminophen Urine Barbiturates Ur Phencyclidine (PCP) U Amphetamin/Meth Scrn MDMA (Ecstasy) Screen U Benzodiazepines Scrn Ur Cocaine Metabolite U Marijuana (THC) Screen Ethyl Alcohol mg/dL 02/03/19 02/05/19 17:41 07:15 WBC RBC Hgb Hct MCV MCH MCHC RDW Std Deviation RDW Coeff of Nando Plt Count MPV Immature Gran % (Auto) Neut % (Auto) Lymph % (Auto) [place] % (Auto) Eos % (Auto) Baso % (Auto) Immature Gran # (Auto) Neut # (Auto) Lymph # (Auto) [place] # (Auto) Eos # (Auto) Baso # (Auto) Absolute Nucleated RBC Nucleated RBC % (auto) Target Cells Sodium Potassium Chloride Carbon Dioxide Anion Gap BUN Creatinine Est Cr Clr Drug Dosing Est GFR ( Amer) Est GFR (Non-Af Amer) BUN/Creatinine Ratio Glucose Fasting Glucose 94 Calcium Total Bilirubin AST ALT Alkaline Phosphatase Total Protein Albumin Globulin Albumin/Globulin Ratio Triglycerides 77 Cholesterol 149 LDL Cholesterol, Calc 87 VLDL Cholesterol, Calc 15 HDL Cholesterol 47 Cholesterol/HDL Ratio 3 TSH HCG, Qual Urine Color Urine Appearance Urine pH Ur Specific Etoile Urine Protein Urine Glucose (UA) Urine Ketones Urine Blood Urine Nitrite Urine Bilirubin Urine Urobilinogen Ur Leukocyte Esterase Salicylates Urine Opiates Screen Ur Methadone, Qual Acetaminophen Urine Barbiturates Ur Phencyclidine (PCP) U Amphetamin/Meth Scrn MDMA (Ecstasy) Screen U Benzodiazepines Scrn Ur Cocaine Metabolite U Marijuana (THC) Screen Ethyl Alcohol mg/dL < 3.0 Hospital Course (1) Suicide gesture: 02/04 -continue voluntary inpatient treatment. -Encourage group and therapy attendance and participation. Work on healthy coping skills and discharge safety plan. -Coordinate with outpatient clinicians (therapist and Psychiatrist Dr. Vicente). -Recommend family meeting with parents in [place], or sister who lives near [place]. 02/05 - Pt denying SI, but has so far demonstrated little engagement in treatment in order to prevent impulsive actions in the future which may threaten health and safety - Family meeting is being recommended, but has not been scheduled 02/06 - denies SI, phone session held with sister, she can come tomorrow to picker / packer patient and so we are recommending that patient continue inaptient until she is able to be released to family member whom she sees as her main support (2) Depression: 02/04 -get records from Dr. Vicente to clarify previous diagnoses and treatment. Continue home medications: Escitalopram 10 mg daily and risperidone 1 mg daily. Patient has been nonadherent, taking medications only twice a week. Reviewed risks of continued nonadherence today, including worsening of symptoms. Continue with motivational interviewing and work on a plan to improve adherence and identify barriers to engaging fully in treatment. -No history of fasting lipid profile/glucose, so will order for tomorrow for monitoring on an atypical antipsychotic. 02/05 and 02/06 - Continue current medication regimen as above, patient able to verbalize some ideas for being more compliant with medications at home - Fasting glucose and lipid panel reviewed with patient - all values WNL - Continue to encourage engagement in group and recreational programming, as patient demonstrated very limited participation yesterday - Encourage development of healthy coping strategies and completion of a safety plan (3) Borderline personality disorder: Continue to provide psychoeducation, utilize DBT techniques/consistent boundaries, and refer for a DBT informed therapist in the community. (4) Sickle cell anemia: Continue home doses of hydroxyurea and tramadol. Just discharged last week after 4-day hospitalization for sickle cell crisis, which caused anemia and diffuse musculoskeletal pain. She received blood transfusion, was started on tramadol, and hydroxyurea dose was increased. She was instructed to follow-up with her cataloging assistant in [place] over the winter break, and then Dr. Mccoy when she returns to campus in February. (5) Seizure-like activity: 02/04 -continue lamotrigine 50 mg twice daily. Patient educated regarding the risks of poor adherence with this medication, including worsening mood, increased risk of seizure, and Giordano-Logan syndrome. She saw Dr. Oquendo in 11/2018 who started this medication, but denies that she has followed up with a neurologist. We will need to clarify this and determine whom she should be seen in follow-up. I like the choice of lamotrigine as it will also help with depression and mood stability, but if she is unable to commit to taking it as prescribed, the risks may outweigh the benefits. Mental Health & Subst Abuse Tx Psychiatrist Name of Psychiatrist: Dr. Bales Psychiatrist's Date of Appointment with Psychiatrist: 02/25/19 Time of Appointment with Psychiatrist: 14:30 Psychiatric Appointment Comment: [address], [place] [address] Therapist Name of Therapist: Kobe Kennedy Therapist's Date of Therapist Appointment: 03/08/19 Time of Therapist Appointment: 11:00 a.m. Therapy Appointment Comment: [address] , [place] [address] Gas Plant Worker Name of Gas Plant Worker: Denies/None Post Discharge Appointments Primary Care Physician Name Of Family Doctor: [facility] Primary Care Time of Appointment with PCP: Please follow up as needed Provider Appointment Comment: [facility] [place] [place] [address] Neurologist Name of Neurologist: Dr. Daria Hernandez Neurologist's Date of Appointment with Neurologist: 04/05/18 Time of Appointment with Neurologist: 10:00 Neurology Appointment Comment: [address], [facility] [address] Smoking Cessation Counseling Tobacco Cessation Medication Prescribed at Discharge: Not Applicable/Non-Smoker Contact Information Discharge Discharge [facility] [address] [place] [address] Discharge Plan Discharge Items Patient Disposition: Home - Self-Care Reason For Visit: SUICIDAL IDEATION Discharge Diagnosis: - Major depressive disorder Activity: Resume your previous activity Non-emergency contact: Primary Care Provider, Psychiatrist and Therapist Call non-emergency contact if: you have any medication questions and your symptoms worsen Follow-up/Referrals: Donna Houser MD [Primary Care Provider] - Diet: Regular Addtl Attending Provider Instructions: SPECIAL CARE INSTRUCTIONS: 1. Follow through with your scheduled aftercare appointments. If unable to keep an appointment, please call to reschedule. 2. Take your medication only as prescribed. Medication should not be changed or stopped without the approval of your doctor. In the event of worsening symptoms or concerns about side effects, contact your doctor immediately. 3. Utilize new healthy coping skills, anger management skills, and stress management skills learned during your hospitalization. Journal feelings and process them with a support person. Identify stressors or situations that may result in relapse, deterioration or inappropriate behaviors and develop a plan to deal with those issues. 4. If your coping skills are ineffective and you are in crisis, contact your outpatient providers for direction. If unable to reach your providers, please call the CAN HELP LINE AT or go to the closest Emergency Room. 5. Avoid alcohol and un-prescribed drugs. 6. You have been provided with the Mental Health Advance Directives Pamphlet for your review. AFTERCARE APPOINTMENTS: * Please call your insurance company prior to your scheduled appointment to confirm your aftercare providers are covered. Take your insurance information to your appointments. WHO TO CALL AND WHEN: Medical Emergencies: For questions or emergencies related to your hospital stay, please contact the Inpatient Behavioral Health Unit at [phone]. A inspector barrel is on-call 09/09 for the Behavioral Health Unit for emergencies At any time you feel your situation is an emergency, you may also call 911 immediately. Your Discharge Instructions noted above were prepared by provider Sada Sharma PA-C. Pending Studies at Discharge: No Stand-Alone Forms: My [facility] [employer], Smoking Cessation, Suicide Prevention Resources Medications and DC Order Prescriptions: Continued risperidone 1 mg tablet 1 mg PO DAILY RF: 0 escitalopram oxalate 10 mg tablet 10 mg PO DAILY RF: 0 hydroxyurea 500 mg capsule 500 mg PO BID Qty: 0 RF: 0 tramadol 50 mg tablet 50 mg PO TID PRN (Reason: pain) Qty: 10 RF: 0 lamotrigine 25 mg tablet 50 mg PO BID RF: 0 Discharge Orders: Discharge Order (Routine); Ordered 02/07/19 Ordered By: Sada Sharma Admission Data Admit Date/Time: 02/03/19 20:11 Attending Provider: Magda Caputo Admit Provider: Jamaal Bunn Primary Care Provider: Donna Houser Coding Level of Care Code 23389 D/C day mgmt > 30 min Diagnoses Suicide gesture X83.8XXA Encounter type: initial encounter Depression F33.2 Active/Remission status: currently active Depression Type: major depressive disorder Major depression episode severity: severe Major depression recurrence: recurrent Psychotic features: without psychotic features Borderline personality disorder F60.3 Sickle cell anemia D57.00 Sickle-cell associated disorders: with unspecified crisis Seizure-like activity R56.9
== END 2019-02-07 16:00 | disposition home or self-care (01) | DRG 885 ==
LOC: ED 15:42 → 3S 20:11

== ENCOUNTER 2019-03-27 19:40 | Inpatient (IN) ==
[2019-03-27] MEDS ORDERED: ONDANSETRON INJ 2 MG/ML 2 ML VIAL IV STA (20:06)
[2019-03-27] MEDS ORDERED: LORazepam 0.5 MG/1 ML VIAL IV STA (20:06)
[2019-03-27] MEDS ORDERED: SODIUM CHLORIDE 0.9% 1000ML 1,000 ML IV SCH (20:15)
[2019-03-27 20:27] LABS: Basophils # (auto) 0.04 K/uL (0-0.2); Basophils % (auto) 0.5 %; Eosinophils # (auto) 0.07 K/uL (0-0.5); Eosinophils % (auto) 0.9 %; Hematocrit (blood only) 24.1 % (37-47); Hemoglobin 8.6 g/dL (12.0-16.0); Immature Granulocytes # (auto) 0.03 K/uL (0.00-0.02); Immature Granulocytes % (auto) 0.4 %; Lymphocytes # (auto) 2.41 K/uL (1.2-3.4); Lymphocytes % (auto) 31.5 %; Mean Corpuscular Hgb Conc 35.7 g/dL (32-36); Mean Platelet Volume 8.7 fL (7.4-10.4); Monocytes # (auto) 0.68 K/uL (0.11-0.59); Monocytes % (auto) 8.9 %; Neutrophils # (auto) 4.42 K/uL (1.4-6.5); Neutrophils % (auto) 57.8 %; Nucleated RBC # (auto) 0.15 K/uL (0-0); Nucleated RBC % (auto) 1.9 %; Platelet Count 360 K/uL (130-400); RDW Standard Deviation 80.4 fL (36.4-46.3); Red Blood Count 2.46 M/uL (4.2-5.4); White Blood Count 7.65 K/uL (4.8-10.8)
[2019-03-27 20:44] LABS: Alanine Aminotransferase 24 U/L (12-78); Aspartate Aminotransferase 53 U/L (15-37); BUN Creatinine Ratio 11.3 (10-20); Blood Urea Nitrogen 6 mg/dl (7-18); Calcium 9.3 mg/dl (8.5-10.1); Carbon Dioxide 24 mmol/L (21-32); Chloride 107 mmol/L (98-107); Creatinine Clr Calc Pharmacy 164.7 ml/min; Est GFR (African American) > 150.0; Est GFR (Non-African American) 138.4; Glucose 80 mg/dl (70-99); Magnesium 1.8 mg/dl (1.8-2.4); Potassium 3.8 mmol/L (3.5-5.1); Sodium 139 mmol/L (136-145)
[2019-03-27 20:47] LABS: Alkaline Phosphatase 67 U/L (45-117); Bilirubin,Total 2.3 mg/dl (0.2-1); Creatine Kinase 43 U/L (26-192); Globulin 4.2 gm/dl (2.5-4.0); Total Protein 8.2 gm/dl (6.4-8.2)
[2019-03-27 20:49] LABS: Reticulocyte % 10.7 % (0.5-2.0); Reticulocytes # 0.27 10^6/uL (0.02-0.10)
--- NOTE | 2019-03-27 20:51 | CT Scan Report ---
CT head/brain wo con CLINICAL HISTORY: 18 years-old Female presenting with seizure like activity. TECHNIQUE: Multidetector CT imaging of the head was performed without the use of intravenous contrast . IV contrast: None. One or more dose lowering techniques were used consistent with the principles of ALARA (as low as reasonably achievable), including automatic exposure control, mA or kV adjustment t o individual patient size, and/or use of iterative reconstruction. COMPARISON: None. CT DOSE (mGy.cm): The estimated cumulative dose is 537.48 mGy.cm. FINDINGS: Docket Specialist topogram: Unremarkable. Ventricles and sulci normal in size. No hemorrhage. Brain parenchyma normal in appearance with preser mack ulrich-white differentiation. No acute territorial infarct. No mass effect or midline shift. No ext ra-axial fluid collection. Paranasal sinuses and mastoid air cells clear. Calvarium intact. IMPRESSION: 1. No acute intracranial abnormality. ACT 112: Negative or not required by law. Electronically signed by: Juan Alberto Olmedo M.D. 03/27/2019 8:50 PM
[2019-03-27 20:59] LABS: Polychromasia 1+; Sickle Cells 1+; Target Cells 1+
[2019-03-27] MEDS ORDERED: SODIUM CHLORIDE 0.9% 1000ML 1,000 ML IV ONE (21:31)
--- NOTE | 2019-03-27 22:57 | Emergency Department Note ---
Entered by Mary Kate Morgan acting as a scribe for Tanner Valenzuela MD ED Provider Note CHIEF COMPLAINT: illness HISTORY OF PRESENT ILLNESS: The patient is a 18 year old F who presents to the Emergency Room with complaints of a worsening illness that started a couple of days ago. The patient states that her symptoms started with coughing, a sore throat, and congestion. She notes that her symptoms then progressed to a headache, chills, body aches, abdominal pain, leg stiffness, and nausea. She adds that she went to see [facility] for her symptoms and was told that she tested negative for the flu. She states that she has been taking tramadol and OTC cold medicine for her symptoms. She notes that today she was experiencing dizziness. She adds that she was laying in bed due to her dizziness. She notes that she decided to get up because she was hungry. She states that she walked to her kitchen but adds that she fell down due to her dizziness. She denies losing consciousness. She notes that she got up and walked back to her bed to lay down. She adds that when she got to her bed, she started to seize. She states that her eyes rolled to the back of her head. She adds that she was also experiencing slurred speech, body shaking, and tachycardia. She denies that she lost consciousness. She states that she was aware that she was seizing but could not control it. She notes that she has experienced these episodes in the past. She states that she was previously prescribed Lamictal by her PCP, which she adds that she is no longer taking. She notes that she has appointment to see her neurologist on Apr 05. She states that she has a history of sickle cell anemia. She notes that her last sickle cell crisis was a couple of months ago when she was admitted. She states that she is originally from [place]. She adds that she came to [place], [place], to study at [employer]. Pt denies LOC, fevers, diaphoresis, visual changes, neck pain, chest pain, vomiting, back pain, melena, hematochezia, urinary symptoms, numbness, weakness, lymphadenopathy, rash, or other complaints. REVIEW OF SYSTEMS: See HPI for pertinent positives and negatives. A total of ten systems were reviewed and were otherwise negative. PMHx/PSHx: Pneumonia, seizure-like activity, sickle cell anemia SOCIAL HISTORY: Patient lives at home. 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 PHYSICAL EXAM: GENERAL: Awake, alert, well-appearing, in no distress HENT: Normocephalic, atraumatic. Oropharynx unremarkable. EYES: PERRL. Normal conjunctiva. Sclera non-icteric. NECK: Inspection normal. Non-tender. Supple. No nuchal rigidity. FROM. No masses. RESPIRATORY: Clear to auscultation. No wheezes. No rales. Normal respiratory effort. CARDIAC: Normal rate. Normal rhythm. No murmurs. No rubs. Extremities warm and well perfused. Pulses equal. No JVD. GI: Soft, non-distended. No tenderness to palpation. No rebound or guarding. No masses. RECTAL: Deferred. MUSCULOSKELETAL: Atraumatic. Chest examination reveals no tenderness. The back is symmetrical on inspection without obvious abnormality. There is no CVA tenderness to palpation. No joint edema. LOWER EXTREMITIES: Calves are equal size bilaterally and non-tender. No edema. No discoloration. NEURO: Normal sensorium. No sensory or motor deficits noted. SKIN: No rash or jaundice noted. EMERGENCY DEPARTMENT COURSE: 1951: The patient was evaluated in room C12B, and a complete history and physical examination were performed. 2037: The nurse informed me that the patient fell after going to the bathroom. The nurse states that the patient was found on the floor. She notes that she talked with the patient and the patient denies hitting her head. 2130: I re-checked the patient. She is resting comfortably. Her vital signs are stable. The patient states that she did not hurt herself after her legs gave out. The nurse was able to walk the patient to the bathroom. After giving the urine sample, the patient had this spell. The patient is currently being hydrated and receiving oral fluids. I will continue to watch the patient. 8: The patient's orthostatic testing was negative. 5: The patient is doing an ambulatory trial. 2229: The patient failed her ambulatory trial. 2232: I re-checked the patient and she states that she did not suffer any injury from her event. The patient will be admitted to the hospital service. 2250: I reviewed the patient's case with Dr. Chandler Mena, [facility] Hospitalist. He will evaluate the patient for further management. MEDICAL DECISION MAKING: Prior records/ancillary studies reviewed. The patient has had numerous visits for sickle cell crisis over the last several months. In November the patient was admitted for seizure-like activity that was noted to be similar to the events of tonight. There was no collapse or syncope noted at that time. She was seen by neurology and Lamictal was initiated. The patient states that she ran out of her Lamictal prescription and that her primary clinic at [facility] took her off this medication since she was still having the spells despite the medication being titrated adequately as directed by neurology in November. Nursing notes reviewed and agree them. The patient's history was concerning for weakness, seizure-like activity, fall, and history of sickle cell Differential diagnosis: Etiologies such as seizure, nonepileptic seizure, metabolic, infection, hy po/hyperglycemia, electrolyte abnormalities, cardiac sources, intracerebral event, toxicologic, neurologic, as well as others were entertained. Physical examination: As above. ER treatment provided: IV Lock IV Zofran Saline hydration x2 L Lorazepam 0.5 mg IV On reassessment the patient felt about the same Diagnostics interpretation by me: ECG: Normal without ectopy or dysrhythmia The labs revealed a mild anemia on CBC which is not significantly different than prior. No thrombocytopenia. No leukocytosis. Adequate reticulocyte count. Total CK normal. Imaging studies: CT scan of the head was performed and was negative for acute process. The patient had very brief episodes of eyes rolling back in her head and stuttering with her speech. These would last a few seconds but the patient was able to understand and follow commands during those periods. She was ambulated by nursing to the bathroom to give a urine sample and then had a another spell in the bathroom and ended up on the floor. She did not suffer any injury. She complained of no pain. I did reassess her after this as did nursing. She was placed back in her bed. She was hydrated. Orthostatic testing was negative. All of her testing results were reviewed with her. She was observed and then an ambulatory trial was performed. She was escorted for this. Shortly after initiation of this trial she fell to the floor. She was caught by the accelerator technician and did not hurt herself. Her cardiac monitoring did not reveal any significant issues pre-or post those events. At this point I cannot send her home as she has no immediate family in the area and continues to keep falling out and having these brief spells. She has not had a neurology follow-up from her last visit and has not had her EEG performed yet as recommended by neurology on the November admission. Consultation: A consultation was placed with the [facility] hospitalist. The case was discussed and diagnostics were reviewed. The patient was evaluated in the ER for further treatment. IMPRESSION: generalized weakness, anemia, myalgias, seizure-like episodes PLAN: Admitted as inpatient. The scribe's documentation has been prepared under my direction and personally reviewed by me in its entirety. I confirm that the note above accurately reflects all work, treatment, procedures, and medical decision making performed by me. Impression & Plan Generalized weakness, Seizure-like activity, Anemia, Myalgia Past Med/Surg History Social History Preferred Language: Honduran Communication Ability: Effective Delinquent Tax Collector Required: No Beliefs That Will Affect Care: None marital status: Single Current Living Situation: Other Current Living Situation Comment: apartment with roommates 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 current occupation: [employer] major Feels Safe at Home: Yes Smoking Status: Never smoker Second Hand Exposure: No ; Hx Alcohol Use: No Hx Substance Use: No Results & Data Vital Signs Vital Signs - 24 hr 03/27/19 19:43 03/27/19 19:47 03/27/19 19:53 Temperature 36.9 C 36.9 C Temperature Source Oral Oral Pulse Rate - Lying Pulse Rate - Sitting Pulse Rate - Standing Pulse Rate 84 81 Pulse Rate [Apical] 81 Pulse Rate from SpO2 Sensor 83 Pulse Rhythm Regular Pulse Rhythm [Apical] Regular Pulse Strength Normal Pulse Strength [Apical] Normal Respiratory Rate 19 13 13 Respiratory Effort / Characteristics Non-Labored Spontaneous Non-Labored Respiratory Depth Normal Normal Respiratory Pattern Regular Regular Blood Pressure - Lying Blood Pressure - Sitting Blood Pressure- Standing Blood Pressure 129/74 129/74 Blood Pressure [Left Arm] 129/74 Blood Pressure Mean 92 92 Blood Pressure Mean [Left Arm] 92 Blood Pressure Position [Left Arm] Lying Pulse Oximetry 96 97 97 Oxygen Delivery Method Room Air Room Air Sepsis Recent Fever Within 48 Hours No Sepsis New/Unexplained Change in Mental Status No Sepsis Action Taken by Nursing No Action Required 03/27/19 20:00 03/27/19 20:30 03/27/19 21:14 Temperature Temperature Source Pulse Rate - Lying Pulse Rate - Sitting Pulse Rate - Standing Pulse Rate 66 77 Pulse Rate [Apical] Pulse Rate from SpO2 Sensor 72 67 103 H Pulse Rhythm Pulse Rhythm [Apical] Pulse Strength Pulse Strength [Apical] Respiratory Rate 14 21 Respiratory Effort / Characteristics Respiratory Depth Respiratory Pattern Blood Pressure - Lying Blood Pressure - Sitting Blood Pressure- Standing Blood Pressure 110/68 97/54 L 106/72 Blood Pressure [Left Arm] Blood Pressure Mean 80 62 81 Blood Pressure Mean [Left Arm] Blood Pressure Position [Left Arm] Pulse Oximetry 96 94 97 Oxygen Delivery Method Sepsis Recent Fever Within 48 Hours Sepsis New/Unexplained Change in Mental Status Sepsis Action Taken by Nursing 03/27/19 21:30 03/27/19 21:41 03/27/19 21:42 Temperature Temperature Source Pulse Rate - Lying Pulse Rate - Sitting Pulse Rate - Standing Pulse Rate 72 85 80 Pulse Rate [Apical] Pulse Rate from SpO2 Sensor 70 81 81 Pulse Rhythm Pulse Rhythm [Apical] Pulse Strength Pulse Strength [Apical] Respiratory Rate 19 23 18 Respiratory Effort / Characteristics Respiratory Depth Respiratory Pattern Blood Pressure - Lying Blood Pressure - Sitting Blood Pressure- Standing Blood Pressure 108/61 105/63 98/68 L Blood Pressure [Left Arm] Blood Pressure Mean 70 75 75 Blood Pressure Mean [Left Arm] Blood Pressure Position [Left Arm] Pulse Oximetry 96 96 96 Oxygen Delivery Method Sepsis Recent Fever Within 48 Hours Sepsis New/Unexplained Change in Mental Status Sepsis Action Taken by Nursing 03/27/19 21:44 03/27/19 21:45 03/27/19 22:00 Temperature Temperature Source Pulse Rate - Lying 70 Pulse Rate - Sitting 84 Pulse Rate - Standing 88 Pulse Rate 88 70 Pulse Rate [Apical] Pulse Rate from SpO2 Sensor 88 70 Pulse Rhythm Pulse Rhythm [Apical] Pulse Strength Pulse Strength [Apical] Respiratory Rate 24 23 Respiratory Effort / Characteristics Respiratory Depth Respiratory Pattern Blood Pressure - Lying 105/63 Blood Pressure - Sitting 98/68 L Blood Pressure- Standing 114/70 Blood Pressure 114/70 119/65 Blood Pressure [Left Arm] Blood Pressure Mean 82 79 Blood Pressure Mean [Left Arm] Blood Pressure Position [Left Arm] Pulse Oximetry 94 94 Oxygen Delivery Method Sepsis Recent Fever Within 48 Hours Sepsis New/Unexplained Change in Mental Status Sepsis Action Taken by Skilled Nursing Medications Current Medication List: was personally reviewed by me Laboratory Data Attestation: I reviewed the patient's lab results. Result diagrams: 03/27/19 20:21 03/27/19 20:20 Lab Results 03/27/19 03/27/19 03/27/19 Range/Units 20:20 20:21 20:21 WBC 7.65 (4.8-10.8) K/uL RBC 2.46 L (4.2-5.4) M/uL Hgb 8.6 L (12.0-16.0) g/dL Hct 24.1 L (37-47) % MCV 98.0 (80-100) fL MCH 35.0 H (25-34) pg MCHC 35.7 (32-36) g/dL RDW Std Deviation 80.4 H (36.4-46.3) fL RDW Coeff of Nando 23.0 H (11.5-14.5) % Plt Count 360 (130-400) K/uL MPV 8.7 (7.4-10.4) fL Immature Gran % (Auto) 0.4 % Neut % (Auto) 57.8 % Lymph % (Auto) 31.5 % Dauphin % (Auto) 8.9 % Eos % (Auto) 0.9 % Baso % (Auto) 0.5 % Reticulocyte % (Auto) 10.7 H (0.5-2.0) % Immature Gran # (Auto) 0.03 H (0.00-0.02) K/uL Neut # (Auto) 4.42 (1.4-6.5) K/uL Lymph # (Auto) 2.41 (1.2-3.4) K/uL Da[place]hin # (Auto) 0.68 H (0.11-0.59) K/uL Eos # (Auto) 0.07 (0-0.5) K/uL Baso # (Auto) 0.04 (0-0.2) K/uL Reticulocyte # 0.27 H (0.02-0.10) 10^6/uL Absolute Nucleated RBC 0.15 H (0-0) K/uL Nucleated RBC % (auto) 1.9 % Polychromasia 1+ Sickle Cells 1+ Target Cells 1+ Sodium 139 (136-145) mmol/L Potassium 3.8 (3.5-5.1) mmol/L Chloride 107 (98-107) mmol/L Carbon Dioxide 24 (21-32) mmol/L Anion Gap 8.0 (3-11) BUN 6 L (7-18) mg/dl Creatinine 0.51 L (0.6-1.2) mg/dl Est Cr Clr Drug Dosing 164.7 ml/min Est GFR ( Amer) > 150.0 Est GFR (Non-Af Amer) 138.4 BUN/Creatinine Ratio 11.3 (10-20) Glucose 80 (70-99) mg/dl Calcium 9.3 (8.5-10.1) mg/dl Magnesium 1.8 (1.8-2.4) mg/dl Total Bilirubin 2.3 H (0.2-1) mg/dl AST 53 H (15-37) U/L ALT 24 (12-78) U/L Alkaline Phosphatase 67 (45-117) U/L Total Creatine Kinase 43 (26-192) U/L Total Protein 8.2 (6.4-8.2) gm/dl Albumin 4.0 (3.4-5.0) gm/dl Globulin 4.2 H (2.5-4.0) gm/dl Albumin/Globulin Ratio 1.0 (0.9-2) Administered Medications Discontinued Medications Sodium Chloride (Nss 1000ml) 1,000 mls @ 999 mls/hr IV .Q1H1M WALTER Stop: 03/27/19 21:15 Last Infusion: 03/27/19 21:26 Dose: 0 mls/hr Documented by: [id number] Admin: 03/27/19 20:16 Dose: 999 mls/hr Documented by: [id number] Lorazepam (Ativan) 0.5 mg in 1 mls @ 1 mls/min IV NOW STA Stop: 03/27/19 20:07 Last Admin: 03/27/19 20:15 Dose: 1 mls/min Documented by: [id number] Sodium Chloride (Nss 1000ml) 1,000 mls @ 999 mls/hr IV .Q1H1M ONE Stop: 03/27/19 22:31 Last Infusion: 03/27/19 23:05 Dose: 0 mls/hr Documented by: [id number] Admin: 03/27/19 21:51 Dose: 999 mls/hr Documented by: [id number] Ondansetron HCl (Zofran) 4 mg IV NOW STA Stop: 03/27/19 20:07 Last Admin: 03/27/19 20:15 Dose: 4 mg Documented by: [id number] Imaging Data Radiologist's Impression: Radiology results as stated below per my review and the radiologist's interpretation: CT head/brain wo con CLINICAL HISTORY: 18 years-old Female presenting with seizure like activity. TECHNIQUE: Multidetector CT imaging of the head was performed without the use of intravenous contrast. IV contrast: None. One or more dose lowering techniques were used consistent with the principles of ALARA (as low as reasonably achievable), including automatic exposure control, mA or kV adjustment to individual patient size, and/or use of iterative reconstruction. COMPARISON: None. CT DOSE (mGy.cm): The estimated cumulative dose is 537.48 mGy.cm. FINDINGS: Dry Chain Worker topogram: Unremarkable. Ventricles and sulci normal in size. No hemorrhage. Brain parenchyma normal in appearance with preserved ulrich-white differentiation. No acute territorial infarct. No mass effect or midline shift. No extra-axial fluid collection. Paranasal sinuses and mastoid air cells clear. Calvarium intact. IMPRESSION: 1. No acute intracranial abnormality. ACT 112: Negative or not required by law. Electronically signed by: Juan Alberto Olmedo M.D. 03/27/2019 8:50 PM ECG Data Attestation: I personally reviewed and interpreted this ECG as follows: Indication: + weakness Rate (beats per minute): 75 Rhythm: normal sinus ECG Intervals/blocks: + Normal QRS ECG [place]: + Normal ECG ST segments: no ST depression and no ST elevation ECG Findings: no PACs and no PVCs Blood Pressure Blood Pressure Findings: Normal blood pressure Blood Pressure Disposition: did not require urgent referral Discharge Plan Visit Data Chief Complaint: Illness Stated Complaint: ILLNESS, POSSIBLE SEIZURES ED Provider: Tanner Valenzuela Discharge Problem: Generalized weakness, Seizure-like activity, Anemia, Myalgia Patient Disposition: Admitted As Inpatient Forms Stand Alone Forms: [facility] [employer] Prescriptions Prescriptions: No Action risperidone 1 mg tablet 1 mg PO DAILY RF: 0 hydroxyurea 500 mg capsule 500 mg PO BID Qty: 0 RF: 0 tramadol 50 mg tablet 50 mg PO TID PRN (Reason: pain) Qty: 10 RF: 0 pantoprazole 40 mg tablet,delayed release (DR/EC) 40 mg PO DAILY RF: 0 escitalopram oxalate 10 mg tablet 20 mg PO QAM RF: 0 Referrals Referrals: Donna Houser MD [Primary Care Provider] - Discharge Problem: Anemia Qualifiers: Anemia type: unspecified type Qualified Code(s): D64.9 - Anemia, unspecified The scribe's documentation has been prepared under my direction and personally reviewed by me in its entirety. I confirm that the note above accurately reflects all work, treatment, procedures, and medical decision making performed by me.
[2019-03-27 23:37] LABS: Appearance Urine Clear (Clear); Bilirubin Urine Negative (Negative); Blood Urine Negative (Negative); Color Urine Yellow; Glucose Urine UA Negative (Negative); Ketones Urine Negative (Negative); Leukocyte Esterase Urine Negative (Negative); Nitrite Urine Negative (Negative); Protein Urine Negative (Negative); Specific Gravity Urine 1.008 (1.000-1.030); Urobilinogen Urine Negative (Negative); pH Urine 6.5 (4.5-7.5)
--- NOTE | 2019-03-28 00:16 | History & Physical Report ---
Date of Service March 28, 2019 Assessment & Plan (1) Generalized weakness: Donta Olivares" is a 18-year-old female with a past medical history of bipolar disorder, borderline personality, suicidal gesture, and sickle cell anemia with last hospital admission 02/04 to 02/07 for suicidal gesture who presents with 1 day of weakness while standing and falling to the floor with concern she might be having a seizure. Weakness with patient concern for seizure No loss of consciousness, incontinence, or tongue biting Patient well-oriented with 5/5 strength with encouragement on exam, but unable to bear weight with sudden drop during attempted ambulation No prior history of seizure, pt has not taken lamotrigine since prior admit CT head with no acute findings - MRI 11/2013 with no acute intracranial abnormalities, noted unchanged chronic changes of the sphenoid and left parietal bone likely due to sickle cell disease No orthostatic hypotension observed in ED, normotensive on exam Admit for observation, neuro and EEG per primary team if patient not improving Systolic murmur Known to patient, has had recent visit with cardiology who noted dizziness not characteristic of cardiac abnormality Echo 06/2018: Normal LV size and systolic function, no wall motion abnormalities , EF 60%, normal RV size and function, no valvular disease, moderate left atrial dilation She has had chest pain which varies in location in the setting of sickle cell anemia in the past No acute cardiac symptoms or pain today. No shortness of breath or diaphoresis. Follow clinically at this time Borderline personality disorder, bipolar, depression Patient reports mood is okay, no SI at time of admission Makes good eye contact and speech with normal prosody during HPI, texts and smiling intermittently throughout exam Continue risperidone 1 mg daily Continue escitalopram 20 mg p.o. every morning Lamotrigine recommended for patient's mood and risk of seizure at last admission, however she has poor adherence to this medication and was noted on this visit that risks/benefits of resuming this are dependent on her commitment to taking as prescribed. Defer at this time, further management per primary team Sickle cell anemia No signs of acute crisis Continue hydroxyurea 500 mg p.o. twice daily Pain control with tramadol p.o. 3 times daily as needed for crisis GERD Continue Protonix 40 mg p.o. daily Diet: Regular DVT prophylaxis: SCDs CODE STATUS: Full code Disposition: Ongoing. Admit to med telemetry for observation. (2) Seizure-like activity: (3) Anemia: (4) Borderline personality disorder: (5) Depression: History of Present Illness Chief Complaint: Weakness, falls Primary Care Provider: Donna Houser MD Donta Olivares" is a 18-year-old female with a past medical history of bipolar disorder, borderline personality, suicidal gesture, and sickle cell anemia with last hospital admission 02/04 to 02/07 for suicidal gesture who presents with 1 day of weakness while standing and falling to the floor with concern she might be having a seizure. Heath reports that her symptoms began this afternoon when she went to stand up and took 2 steps and fell to the floor and might have had a seizure. She reports she feels slightly dizzy when standing, and has had dizziness when standing for several months. She did not lose consciousness, have bowel or bladder incontinence, or tongue biting during this episode. She did not experience any other symptoms, and reports she has had mild sickle cell crises in the prior few weeks but has not been in pain or had a crisis today. She reports she has seen cardiology for orthostasis, and is aware she has a heart murmur which had an echo several months ago. Denies loss of consciousness, chest pain, chest pressure. She denies change in vision, focal weakness, numbness, and tingling. She attempted to ambulate several times with emergency department staff and dropped to the floor each time, and reports she was not able to sustain her body weight. She reports her mood is "fine ", but that she is hungry. Reports she lives at home with several other students have [facility] and things are okay at home. Denies current suicidal ideation. Reports that she has not taken Lamictal in several weeks, and is due to take her Risperdal today. No recent medication changes. Past medical history: Reviewed, as above Medications: Reviewed. Takes hydroxyurea, Lexapro, risperidone. Has not taken lamotrigine since her last hospital admission, strongly recommended to take this on discharge. Past surgical history: N/A. Reviewed Family history: Mother with hypertension Social history: She is a student from [place]. [facility], reports things are okay at home. Denies alcohol use. Denies tobacco use. Denies substance use. [employer] major. Allergies Allergy/AdvReac Type Severity Reaction Status Date / Time No Known Allergies Allergy Verified 03/27/19 22:51 Home Medications Home Medications Medication Instructions Recorded Confirmed Type risperidone 1 mg PO DAILY 01/04/19 03/27/19 History hydroxyurea 500 mg PO BID #0 cap 01/25/19 03/27/19 Rx tramadol 50 mg PO TID PRN #10 tab 01/25/19 03/27/19 Rx escitalopram oxalate 20 mg PO QAM 03/27/19 03/27/19 History pantoprazole 40 mg PO DAILY 03/27/19 03/27/19 History Past Med/Surg History Social History Preferred Language: Greek Communication Ability: Effective Licensed Loan Officer Assistant Required: No Beliefs That Will Affect Care: None marital status: Single Current Living Situation: Other Current Living Situation Comment: lives in apartment with roomates 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 current occupation: [employer] major Other Information That Helps Us Care for You: No Feels Safe at Home: Yes Safety Concerns: Feels Safe At This Time Smoking Status: Never smoker Do You Dip or Chew Tobacco: No ; Second Hand Exposure: No ; Hx Alcohol Use: No Hx Substance Use: No Review of Systems Review of Systems: All systems reviewed & are unremarkable except as noted in HPI & below Physical Exam Physical Exam: General: A&Ox3. NAD. Cooperative. Using cell phone during exam. Makes good eye contact and voice with normal volume and prosody when asked questions. Thought process linear. HEENT: Atraumatic, normocephalic. Pulm: CTAB A&P. -wheezes, -rales, -rhonchi. Symmetrical chest rise. No increase work of breathing. No respiratory distress. Cardiac: RRR, soft systolic murmur. Radial pulses intact and symmetrical. Abdominal: Nontender, nondistended, soft. BS present. CN II: Visual sharma are full to confrontation. Pupils are equal and react to light and accomidation. Visual acuity grossly intact. CN III, IV, : At primary gaze, there is no eye deviation. EoM intact without nystagmus. No visual field cuts. CN V: Facial sensation is intact to soft touch in all 3 divisions bilaterally. CN VII: No facial asymmetry, full strength to eyebrow raise, smile, eye close, and cheek puff. CN VII: Hearing is grossly intact. CN IX, X: Palate elevates symmetrically. Phonation is normal without dysarthria. CN XI: Head turning and shoulder shrug are intact CN XII: Tongue protrudes midline. Reflexes: Patellar, DTR 2+ Bilaterally. No ankle clonus. Sensory: Light touch, pinprick intact in upper and low extremities without deficit or asymmetry. Strength: RUE: Shoulder flexion/extension/internal rotation/external rotation, elbow flexion/extension, finger flexion/extension, dealer card room strength, interosseous initially with 5/5 with encouragement LUE: Shoulder flexion/extension/internal rotation/external rotation, elbow flexion/extension, finger flexion/extension, dealer card room strength, interosseous 5/5with encouragement RLE: Hip flexion, knee flexion/extension, ankle plantar flexion/dorsiflexion 5/5 with encouragement LLE: Hip flexion, knee flexion/extension, ankle plantar flexion/dorsiflexion 5/5 with encouragement Coordination: No dysmetria. Results & Data Vital Signs (Past 12 Hours) Vital Signs Temp Pulse Pulse Resp BP BP Pulse Ox 03/27/19 22:00 70 23 119/65 94 03/27/19 21:44 88 24 114/70 94 03/27/19 21:42 80 18 98/68 L 96 03/27/19 21:41 85 23 105/63 96 03/27/19 21:30 72 19 108/61 96 03/27/19 21:14 77 21 106/72 97 03/27/19 20:30 66 14 97/54 L 94 03/27/19 20:00 110/68 96 03/27/19 19:53 36.9 C 81 13 129/74 97 03/27/19 19:47 36.9 C 81 13 129/74 97 03/27/19 19:43 84 19 129/74 96 Supervising Physician Co-Signing Physician Notes Attending addendum: I have physically seen this patient, have supervised the medical residents activities, and agree with the H&P unless as otherwise noted. Assessment and Plan: Seizure-like activity versus pseudoseizure versus manifestation of borderline personality disorder and bipolar state- CT of head negative. MRI in 12/05 with no abnormal findings. Admit to monitored bed for observation. Order EEG for the a.m. and neuro consult. Continue Escitalopram 20 mg daily and risperidone 1 mg daily. Sickle cell disease- Continue hydroxyurea 500mg twice daily and tramadol 50 mg p.o. 3 times daily as needed Remainder orders and notations as noted. Resident Activity Tracking Resident Involvement: Resident Care Provided Care Provided: Adult Hospital Medicine (1) Anemia Anemia type: unspecified type Qualified Code(s): D64.9 - Anemia, unspecified (2) Depression Active/Remission status: currently active Depression Type: major depressive disorder Major depression episode severity: severe Major depression recurrence: recurrent Psychotic features: without psychotic features Qualified Code(s): F33.2 - Major depressive disorder, recurrent severe without psychotic features
[2019-03-28] MEDS: risperiDONE 1 MG TABLET PO SCH ×2 (02:15→21:19)
[2019-03-28] MEDS: ESCITALOPRAM OXALATE 20 MG TAB PO SCH (07:58)
[2019-03-28] MEDS: PANTOprazole 40 MG TAB PO SCH (07:58)
[2019-03-28] MEDS: HYDROXYUREA 500 MG CAP PO SCH ×2 (07:58→21:19)
--- NOTE | 2019-03-28 14:31 | History & Physical Bridge Note ---
Date of Service March 28, 2019 History & Physical Bridge Note Unclear history for me. Reports generally normal strength, but with legs just suddenly given out on her. Denies dizziness or gait imbalance. RN notes that they tried to walk the patient to the restroom and legs just suddenly gave out. Strength exam is non-focal for me with all muscle groups 4+/5 and getting better with encouragement. - Neurology consulted -> Has seen Dr. qOuendo in the past, but never followed up in the clinic.
--- NOTE | 2019-03-29 01:23 | Billing Data ---
Date of Service March 29, 2019 Coding Level of Care Code 86174 Initial Inpt Care Lvl 3
[2019-03-29 06:03] LABS: Hematocrit (blood only) 23.2 % (37-47); Hemoglobin 8.3 g/dL (12.0-16.0); Mean Corpuscular Hemoglobin 35.2 pg (25-34); Mean Corpuscular Hgb Conc 35.8 g/dL (32-36); Mean Corpuscular Volume 98.3 fL (80-100); Mean Platelet Volume 8.7 fL (7.4-10.4); Nucleated RBC % (auto) 1.7 %; Platelet Count 321 K/uL (130-400); RDW Coefficient of Variation 22.9 % (11.5-14.5); RDW Standard Deviation 81.2 fL (36.4-46.3); Red Blood Count 2.36 M/uL (4.2-5.4); White Blood Count 5.99 K/uL (4.8-10.8)
[2019-03-29 06:41] LABS: BUN Creatinine Ratio 14.2 (10-20); Blood Urea Nitrogen 8 mg/dl (7-18); Calcium 8.6 mg/dl (8.5-10.1); Carbon Dioxide 27 mmol/L (21-32); Chloride 105 mmol/L (98-107); Creatinine Clr Calc Pharmacy 145.9 ml/min; Est GFR (African American) > 150.0; Est GFR (Non-African American) 136.7; Glucose 108 mg/dl (70-99); Magnesium 1.5 mg/dl (1.8-2.4); Potassium 3.4 mmol/L (3.5-5.1); Sodium 137 mmol/L (136-145)
[2019-03-29 06:48] LABS: Ferritin 182.3 ng/ml (8-388); Iron 106 mcg/dl (35-150); Phosphorus 4.5 mg/dl (2.5-4.9); Transferrin 175 mg/dl (200-360); Transferrin Percent Saturation 43 % (15-50)
[2019-03-29] MEDS: ESCITALOPRAM OXALATE 20 MG TAB PO SCH (07:25)
[2019-03-29] MEDS: PANTOprazole 40 MG TAB PO SCH (07:25)
[2019-03-29] MEDS: HYDROXYUREA 500 MG CAP PO SCH ×2 (07:25→20:15)
[2019-03-29] MEDS ORDERED: SODIUM CHLORIDE 0.9% 1000ML 1,000 ML IV SCH (08:15)
[2019-03-29] MEDS: SODIUM CHLORIDE 0.45 % 1,000 ML IV SCH ×2 (08:37→17:57)
[2019-03-29] MEDS: MAGNESIUM SULFATE / D5W 1 GM/100 ML BAG IV SCH ×2 (08:37→09:46)
[2019-03-29] MEDS ORDERED: POTASSIUM CHLORIDE 20 MEQ TABCR PO ONE (08:45)
[2019-03-29 08:54] LABS: Albumin Level 3.5 gm/dl (3.4-5.0); Bilirubin Direct 0.3 mg/dl (0-0.2); Bilirubin,Total 1.9 mg/dl (0.2-1); Total Protein 7.6 gm/dl (6.4-8.2)
--- NOTE | 2019-03-29 10:45 | Neurology Consultation ---
Date of Consultation March 29, 2019 Assessment & Plan (1) Seizure-like activity: (2) Borderline personality disorder: (3) Depression: (4) Sickle cell anemia: Patient has interesting episodes consisting of bilateral eyes rolling back in her head, slurred or stuttering speech, and bilateral shaking movements all with total recall of the event. This would not be consistent with a seizure disorder. MRI of the brain was normal in the past and neurologic examination today is nonfocal with no meningeal signs or encephalopathy. The patient does have a history of some psychiatric issues with depression and borderline personality disorder diagnoses. She has had suicide attempts in the past. I tried to initiate lamotrigine and titrate for her spells, as well as her mood. Unfortunately she was not compliant. Sickle cell anemia with occasional crises. She is on hydroxyurea and tramadol. Recommendations: 1. Consider EEG. I am not certain in between spells that is going to show very much but it could be attempted. It would be best used in the middle of the spell. 2. There is no need for additional neurologic testing at this time. 3. I did consider lamotrigine the last visit. I believe this could be a good medicine for her considering her psych issues also. As long she tolerates it we need to initiate 25 mg twice a day and each week increase by 25 mg twice daily until we get to 100 mg b.i.d.. Alternatively, There is a long-acting form of Lamictal which is used once daily which would be better for compliance if her insurance will pay for it. I would start with 50 mg once daily of this for 2 weeks then increase to 100 mg once daily. 4. Defer to Psychiatry for additional treatment recommendations. I would follow as an outpatient if desired Overall, I spent a total of 80 minutes with this case including review of records, direct evaluation the patient at bedside, and discussing the case with the patient at bedside, RN, and Tiana Davis PA-C, including differential diagnosis and treatment options. History of Present Illness Reason for Consultation: Patient is a 18-year-old who I was asked to see at the request of Dr. Elias, for neurologic consultation regarding possible seizures. Requesting Physician: Dr. Elias Attending Physician: Sada Pandya MD History of Present Illness Patient comes from [facility], having been in the [place] since January of 2016. 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 The patient has a lifelong history of sickle cell with sickle cell crises intermittently since . Currently they occur about every couple months or so consisting of diffuse body pain. She takes tramadol hot showers and drinks extra water. This will help. Her most recent attack was about 3 days ago and was very mild, staved off by the above regimen. She has more severe episodes which require hospitalization. This happened in January. She takes hydroxyurea daily to try and prevent episodes. Over the last year and a half for so the patient has been getting unusual episodes. The episodes were very mild and infrequent at 1st and over time became more frequent and more intense. Her 1st intense episode was in the spring when she had an episode of slurred speech and right upper extremity stiffness lasting 20 minutes. She was going to school at [employer] at the time. At [facility] an MRI was unremarkable and she was given no medication. Over the course of 2018 she had episodes of her eyes rolling back followed by slurred speech or stuttering. She could understand what people were saying to her but could not get the words out. She remember the whole incident. At that time they would last anywhere from 5-20 minutes. In November of 2018 I saw this patient after 1 of these episodes. She had eyes rolling back in her head, slurred speech, and shaking all over. She was awake and alert with no confusion tongue biting, incontinence of urine, or trouble recalling the event. At the time I did not feel she was having seizure but because of her condition I elected to initiate lamotrigine 25 mg twice a day titrating up to 100 mg twice daily. After discharge the patient took the medication up to 50 mg twice daily and then stop because she felt that it did not help. She was still having spells. She stopped after a few weeks and never went to a higher dose, being off since December of 2018. Her spells average about once per week consisting of the onset of her eyes rolling back followed by slurred speech. Her right or left hand may shake a little bit. The spell lasted few minutes but she has good recall the event. She has then disoriented for couple of minutes and back to normal. Once a month or so she may get a more intense spell where her whole body shakes during these episodes lasting will couple of minutes. It may cycle on an off every 1-5 minutes for total of 10-15 minutes. Afterwards she gets back to normal just as she does with the other spells. She came to the emergency room March 27 after having an upper respiratory tract infections/viral illness for couple of days. She tested negative for flu at [facility]. She had cough, sore throat, congestion, headache, chills, aches of her body, abdominal pain, nausea, and leg stiffness. She had 1 of her spells consisting of eyes rolling back, slurred speech, and some jerking movements of the limbs. On January 24 she arrived at [facility] with a temperature of 36.9, pulse 84, respiratory rate 19, blood pressure 129/74, and O2 saturation 96%. Exam was unremarkable. She had some anemia on CBC but Chem profile was unremarkable and CT scan of the head without contrast was unremarkable. I reviewed this film. Today she is feeling somewhat better and is currently asymptomatic, though that she feels a little bit weak in general. Allergies Allergy/AdvReac Type Severity Reaction Status Date / Time No Known Allergies Allergy Verified 03/27/19 22:51 Home Medications Home Medications Medication Instructions Recorded Confirmed Type risperidone 1 mg PO DAILY 01/04/19 03/27/19 History hydroxyurea 500 mg PO BID #0 cap 01/25/19 03/27/19 Rx tramadol 50 mg PO TID PRN #10 tab 01/25/19 03/27/19 Rx escitalopram oxalate 20 mg PO QAM 03/27/19 03/27/19 History pantoprazole 40 mg PO DAILY 03/27/19 03/27/19 History Patient History Medical History Borderline personality disorder Pneumonia Seizure-like activity Sickle cell anemia (Chronic) Sickle cell crisis Surgical History No pertinent past surgical history Family History Mother Hypertension Father Ulcer Other Family history non-contributory Social History Preferred Language: Egyptian Communication Ability: Effective Regional Rehabilitation Director Required: No Beliefs That Will Affect Care: None marital status: Single Current Living Situation: Other Current Living Situation Comment: lives in apartment with roomates 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 current occupation: [employer] major Other Information That Helps Us Care for You: No Feels Safe at Home: Yes Safety Concerns: Feels Safe At This Time Smoking Status: Never smoker Do You Dip or Chew Tobacco: No ; Second Hand Exposure: No ; Hx Alcohol Use: No Hx Substance Use: No Review of Systems Constitutional: + body aches and + weakness; no fever and no fatigue Eyes: no diplopia, no eye pain and no worsening vision Ear, Nose, Mouth, Throat: no ear pain, no tinnitus, no hearing loss, no dizziness, no snoring, no hoarseness and no dysphagia Respiratory: no cough and no dyspnea Cardiovascular: no chest pain, no palpitations and no lightheadedness Gastrointestinal: no abdominal pain, no nausea and no vomiting Genitourinary: no dysuria, no urinary frequency and no urinary incontinence Musculoskeletal: + joint pain; no back pain, no neck pain, no radicular pain and no myalgia Integumentary: no rash and no lesions Neurologic: no gait abnormality, no localized weakness, no generalized weakness, no tingling, no numbness, no tremor(s), no abnormal movements, no headache(s), no abnormal speech, no confusion and no memory loss Psychiatric: no depression, no irritability, no anxiety, no difficulty concentrating, no confusion and no hallucinations Endocrine: no fatigue and no flushing Hematologic / Lymphatic: no easy bleeding and no easy bruising Allergy / Immunological: no urticaria and no problem reported Physical Exam Physical Exam: The patient is right-handed. The patient is awake, alert, and attentive. Speech is normal without any aphasia or dysarthria. She can name objects, repeat phrases, and has normal spontaneous speech. Mentation and thought processes are intact, with orientation to person, place and time, and normal fund of knowledge. Attention and concentration are normal. Mood and affect are normal and appropriate. General appearance and grooming are normal. Short and long-term memory are intact. The discs are sharp with positive venous pulsations bilaterally. There are no exudates, hemorrhages, or blood vessel changes seen. Pupils are 4 mm bilaterally and reactive to light. Extraocular eye muscles are intact without nystagmus. Visual acuity and visual sharma seem normal grossly to confrontation. There are no deficits to sensation in the face in all 3 distributions of the fifth cranial nerve bilaterally. Corneal reflexes are positive bilaterally. Facial strength and symmetry was normal bilaterally. Hearing seems normal to whisper and finger rub bilaterally. Palate moves well without asymmetry. There is normal sternocleidomastoid and trapezius (shoulder shrug) strength bilaterally. Tongue is midline with good strength bilaterally. Neck has a full range of motion without discomfort. There are no cervical bruits bilaterally. There are no cranial or ocular bruits. Heart is without murmur. There is a regular rhythm and rate. Cervical, thoracic, and lumbar spine are nontender to palpation. Gait is narrow based, with good arm swing, turns, and stance. Balance is normal eyes open or closed. With outstretched arms there is no drift. There are no resting, postural, or action tremors. There is no ataxia with finger to nose testing. There is good facility in the hands. No other abnormal involuntary movements are noted. Motor strength is 5/5 diffusely in the arms bilaterally including deltoids, biceps, triceps, brachioradialis, wrist flexors and extensors, instructional technologist, and intrinsic hand muscles. Motor strength is 5/5 diffusely in the legs bilaterally including hip flexors, quadriceps, hamstrings, gastrocnemius, tibialis anterior, tibialis posterior, and Peroneii muscles. Toe extensors are normal and there is good bulk in the extensor digitorum brevis muscles bilaterally. The limbs have good tone without rigidity or spasticity. There is no atrophy noted in the muscles. Muscle bulk is normal, there is no tenderness to palpation, no myotonia to percussion, and no fasciculations seen. Sensory examination is intact to touch and pin throughout all 4 limbs diffusely. Reflexes are 1/4 in the biceps, triceps, brachioradialis, quadriceps, and Achilles tendons bilaterally. There is no clonus bilaterally. Toes are downgoing with plantar stimulation bilaterally. Peripheral pulses are present and of normal quality distally in all 4 limbs. There is no peripheral edema noted in the limbs. Results & Data Vital Signs (Past 12 Hours) Vital Signs Temp Pulse Resp BP Pulse Ox 03/29/19 07:19 36.8 C 93 H 18 104/59 L 94 03/29/19 00:05 36.9 C 85 15 98/59 L 95 PG Care Time/CCT Total # of Minutes Spent Total Time Spent with Patient: Total time spent is greater than 50% in coordination of care (as documented) at patient's floor/unit and/or counseling patient: Coding Level of Care Code 73374 Inpt Consult Level 4 Diagnoses Seizure-like activity R56.9 Borderline personality disorder F60.3 Depression F33.2 Active/Remission status: currently active Depression Type: major depressive disorder Major depression episode severity: severe Major depression recurrence: recurrent Psychotic features: without psychotic features Sickle cell anemia D57.00 Sickle-cell associated disorders: with unspecified crisis (1) Depression Active/Remission status: currently active Depression Type: major depressive disorder Major depression episode severity: severe Major depression recurren ce: recurrent Psychotic features: without psychotic features Qualified Code(s): F33.2 - Major depressive disorder, recurrent severe without psychotic features (2) Sickle cell anemia Sickle-cell associated disorders: with unspecified crisis Qualified Code(s): D57.00 - Hb-SS disease with crisis, unspecified
--- NOTE | 2019-03-29 14:02 | Hospitalist Progress Note ---
Date of Service March 29, 2019 Assessment & Plan (1) Generalized weakness: - Unclear etiology -- has had episodes of weakness/falling with ambulation. Possibly related to pseudoseizures/psych diagnoses. - CT head negative; most recent brain MRI in November 2013 with no acute abnormalities noted. As per Neuro note, she also had a brain MRI in 2019 that was normal - Orthostatic vital signs negative. - Neuro consulted, EEG +pseudoseizures. - Has been hypotensive -- IV fluids with 0.45% NS at 125 cc/hr. (2) Pseudoseizures: - No tongue biting, loss of consciousness or bowel/bladder incontinence noted during episodes. - CT head negative. Consider brain MRI (most recent image in 2013) - EEG +evidence of pseudoseizures. - Neuro following, appreciate input. - Recommend to start Lamictal XR 50 mg daily - sent to pharmacy, will need to check cost of medication. Was not compliant with Lamictal 50 mg BID dosing at home. - Consulting psych for input; pt. has history of refusing to take psych meds. (3) Anemia: - In setting of sickle cell disease. - Has required transfusion support in the past. - Recommend to transfuse for hgb <8. (4) Borderline personality disorder: - Continue Risperdal as prescribed. - Was not compliant with home Lamictal; recommend to take Lamictal XR 50 mg daily x 3 weeks then 100 mg daily at home. (5) Depression: - Continue Lexapro as prescribed. - Admitted for suicidal ideation in Jan 2019. (6) Sickle cell anemia: - Transfuse for hgb <8. - 0.45% NS infusion at 125 cc/hr; no evidence of acute crisis. - Tramadol prn pain. (7) Elevated LFTs: - T. bili increased along with AST. - Will continue to monitor daily. - Consider RUQ imaging. (8) Electrolyte abnormality: - K level 3.4 -- ordered KCl 20 mEq PO. - Mag level 1.5 - ordered mag sulfate 2 gm IV. - Monitor levels daily. Dispo: Med/surg with tele; discharge pending PT/OT evaluation and improvement in weakness. Admission and Anticipated Discharge Date Admission Date: March 28, 2019 Anticipated date of discharge: 03/30/19 Supervising Physician Co-Signing Physician Notes PA Supervision Note: I did not personally see or examine the patient today, but I verified all amaro points of ROLA Trujillo's assessment and plan with the following exceptions/additions: Will consult Psych for pseudoseizures and ongoing treatment of her MH issues Subjective Pt. has ongoing weakness/falls with ambulating. She states this has been an issue over the last few days. Has chronic dizziness, was evaluated by cardiology -- symptoms were not likely related to cardiac source. She has episodes of "zoning out" where she develops slurred speech but she is completely aware of episode. Denies biting her tongue, urinary or bowel incontinence, seizure like movements. Pt. was not taking Lamictal at home, has been non-compliant. Sent Lamictal XR 50 mg daily to the pharmacy, will need to evaluate cost. She did have an episode during my encounter, her eyes rolled back associated with very brief moment of slurred speech. Review of Systems Review of Systems: All systems reviewed & are unremarkable except as noted in HPI & below Constitutional: + weakness; no fever, no chills, no fatigue and no anorexia Respiratory: no cough, no dyspnea and no dyspnea on exertion Cardiovascular: no chest pain, no palpitations and no edema Gastrointestinal: no abdominal pain, no nausea and no constipation Genitourinary: no difficulty urinating Musculoskeletal: no back pain and no joint pain Integumentary: no non-healing lesions Neurologic: + gait abnormality, + unsteadiness, + falls, + seizure-like activity and + abnormal speech; no dizziness and no headache(s) Physical Exam Physical Exam: General: Resting comfortably HEENT: NC/AT; PERRLA with EOMI; [place] conjunctiva, MMM. No erythema of posterior pharynx Neck: Supple and nontender Cardiac: RRR Lungs: CTA bilaterally Abdomen: Bowel normoactive X 4; Nontender to palpation Extremities: Warm. No edema present Neuro: Episode of slurred speech with abnormal eye movements noted during exam, resolved within 15 seconds; +2/5 muscle strength RLE, +3/5 in LLE. Skin: No rash Results & Data ([facility]) Vital Signs (Past 12 Hours) Vital Signs Temp Pulse Resp BP Pulse Ox 03/29/19 07:19 36.8 C 93 H 18 104/59 L 94 Laboratory Results 03/29/19 03/29/19 03/29/19 Range/Units 05:54 05:54 05:54 WBC 5.99 (4.8-10.8) K/uL RBC 2.36 L (4.2-5.4) M/uL Hgb 8.3 L (12.0-16.0) g/dL Hct 23.2 L (37-47) % MCV 98.3 (80-100) fL MCH 35.2 H (25-34) pg MCHC 35.8 (32-36) g/dL RDW Std Deviation 81.2 H (36.4-46.3) fL RDW Coeff of Nando 22.9 H (11.5-14.5) % Plt Count 321 (130-400) K/uL MPV 8.7 (7.4-10.4) fL Absolute Nucleated RBC 0.10 H (0-0) K/uL Nucleated RBC % (auto) 1.7 % Sodium 137 (136-145) mmol/L Potassium 3.4 L (3.5-5.1) mmol/L Chloride 105 (98-107) mmol/L Carbon Dioxide 27 (21-32) mmol/L Anion Gap 5.0 (3-11) BUN 8 (7-18) mg/dl Creatinine 0.53 L (0.6-1.2) mg/dl Est Cr Clr Drug Dosing 145.9 ml/min Est GFR ( Amer) > 150.0 Est GFR (Non-Af Amer) 136.7 BUN/Creatinine Ratio 14.2 (10-20) Glucose 108 H (70-99) mg/dl Calcium 8.6 (8.5-10.1) mg/dl Phosphorus 4.5 (2.5-4.9) mg/dl Magnesium 1.5 L (1.8-2.4) mg/dl Iron 106 (35-150) mcg/dl Transferrin 175 L (200-360) mg/dl Transferrin % Sat 43 (15-50) % Ferritin 182.3 (8-388) ng/ml Total Bilirubin 1.9 H (0.2-1) mg/dl Direct Bilirubin 0.3 H (0-0.2) mg/dl AST 43 H (15-37) U/L ALT 25 (12-78) U/L Alkaline Phosphatase 71 (45-117) U/L Total Creatine Kinase (26-192) U/L Total Protein 7.6 (6.4-8.2) gm/dl Albumin 3.5 (3.4-5.0) gm/dl 03/28/19 Range/Units 16:45 WBC (4.8-10.8) K/uL RBC (4.2-5.4) M/uL Hgb (12.0-16.0) g/dL Hct (37-47) % MCV (80-100) fL MCH (25-34) pg MCHC (32-36) g/dL RDW Std Deviation (36.4-46.3) fL RDW Coeff of Nando (11.5-14.5) % Plt Count (130-400) K/uL MPV (7.4-10.4) fL Absolute Nucleated RBC (0-0) K/uL Nucleated RBC % (auto) % Sodium (136-145) mmol/L Potassium (3.5-5.1) mmol/L Chloride (98-107) mmol/L Carbon Dioxide (21-32) mmol/L Anion Gap (3-11) BUN (7-18) mg/dl Creatinine (0.6-1.2) mg/dl Est Cr Clr Drug Dosing ml/min Est GFR ( Amer) Est GFR (Non-Af Amer) BUN/Creatinine Ratio (10-20) Glucose (70-99) mg/dl Calcium (8.5-10.1) mg/dl Phosphorus (2.5-4.9) mg/dl Magnesium (1.8-2.4) mg/dl Iron (35-150) mcg/dl Transferrin (200-360) mg/dl Transferrin % Sat (15-50) % Ferritin (8-388) ng/ml Total Bilirubin (0.2-1) mg/dl Direct Bilirubin (0-0.2) mg/dl AST (15-37) U/L ALT (12-78) U/L Alkaline Phosphatase (45-117) U/L Total Creatine Kinase 42 (26-192) U/L Total Protein (6.4-8.2) gm/dl Albumin (3.4-5.0) gm/dl PG Care Time/CCT Total # of Minutes Spent Total Time Spent with Patient: Total time spent is greater than 50% in coordination of care (as documented) at patient's floor/unit and/or counseling patient: Coding Level of Care Code 40902 Subseq Hosp Care Lvl 3 Diagnoses Generalized weakness R53.1 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 Anemia D64.9 Anemia type: unspecified type Borderline personality disorder F60.3 Depression F33.2 Active/Remission status: currently active Depression Type: major depressive disorder Major depression episode severity: severe Major depression recurrence: recurrent Psychotic features: without psychotic features Sickle cell anemia D57.00 Sickle-cell associated disorders: with unspecified crisis Elevated LFTs R94.5 Electrolyte abnormality E87.8 (1) Sickle cell anemia Sickle-cell associated disorders: with unspecified crisis Qualified Code(s): D57.00 - Hb-SS disease with crisis, unspecified (2) Anemia Anemia type: unspecified type Qualified Code(s): D64.9 - Anemia, unspecified (3) Depression Active/Remission status: currently active Depression Type: major depressive disorder Major depression episode severity: severe Major depression recurrence: recurrent Psychotic features: without psychotic features Qualified Code(s): F33.2 - Major depressive disorder, recurrent severe without psychotic features
--- NOTE | 2019-03-29 14:12 | Electroencephalogram ---
EEG Procedure Note Date of Service March 29, 2019 Start / End Times Start Time: 1343 End Time: 1403 Referring Physician Tiana Davis PA-C History 18-year-old with history of seizure-like activity, eyes rolling up, slurred speech, and generalized shaking with recall of the events. Home Medication List Home Medications Medication Instructions Recorded Confirmed Type risperidone 1 mg PO DAILY 01/04/19 03/27/19 History hydroxyurea 500 mg PO BID #0 cap 01/25/19 03/27/19 Rx tramadol 50 mg PO TID PRN #10 tab 01/25/19 03/27/19 Rx escitalopram oxalate 20 mg PO QAM 03/27/19 03/27/19 History pantoprazole 40 mg PO DAILY 03/27/19 03/27/19 History lamotrigine [Lamictal XR] 50 mg PO DAILY 21 Days #21 tab 03/29/19 Rx Inpatient Medication List Escitalopram Oxalate (Lexapro Tab) 20 mg PO QAM WALTER Stop: 04/27/19 08:59 Last Admin: 03/29/19 07:25 Dose: 20 mg Documented by: [id number] Admin: 03/28/19 07:58 Dose: 20 mg Documented by: [id number] Hydroxyurea (Hydrea) 500 mg PO BID WALTER Stop: 04/27/19 08:59 Last Admin: 03/29/19 07:25 Dose: 500 mg Documented by: [id number] Cosigned by: [id number] Admin: 03/28/19 21:19 Dose: 500 mg Documented by: [id number] Cosigned by: [id number] Admin: 03/28/19 07:58 Dose: 500 mg Documented by: [id number] Cosigned by: [id number] Sodium Chloride (1/2 Nss) 1,000 mls @ 125 mls/hr IV .Q8H WALTER Stop: 04/28/19 08:14 Last Infusion: 03/29/19 10:47 Dose: 125 mls/hr Documented by: [id number] Infusion: 03/29/19 08:37 Dose: 0 mls/hr Documented by: [id number] Admin: 03/29/19 08:37 Dose: 125 mls/hr Documented by: [id number] Pantoprazole Sodium (Protonix) 40 mg PO DAILY WALTER Stop: 04/27/19 08:59 Last Admin: 03/29/19 07:25 Dose: 40 mg Documented by: [id number] Admin: 03/28/19 07:58 Dose: 40 mg Documented by: [id number] Risperidone (Risperdal) 1 mg PO HS WALTER Stop: 04/27/19 01:29 Last Admin: 03/28/19 21:19 Dose: 1 mg Documented by: [id number] Admin: 03/28/19 02:15 Dose: 1 mg Documented by: [id number] Discontinued Medications Sodium Chloride (Nss 1000ml) 1,000 mls @ 999 mls/hr IV .Q1H1M WALTER Stop: 03/27/19 21:15 Last Infusion: 03/27/19 21:26 Dose: 0 mls/hr Documented by: [id number] Admin: 03/27/19 20:16 Dose: 999 mls/hr Documented by: [id number] Lorazepam (Ativan) 0.5 mg in 1 mls @ 1 mls/min IV NOW STA Stop: 03/27/19 20:07 Last Admin: 03/27/19 20:15 Dose: 1 mls/min Documented by: [id number] Sodium Chloride (Nss 1000ml) 1,000 mls @ 999 mls/hr IV .Q1H1M ONE Stop: 03/27/19 22:31 Last Infusion: 03/27/19 23:05 Dose: 0 mls/hr Documented by: [id number] Admin: 03/27/19 21:51 Dose: 999 mls/hr Documented by: [id number] Magnesium Sulfate/Dextrose (Magnesium Sulfate / D5w) 1 gm in 100 mls @ 100 mls/hr IV Q1H WALTER Stop: 03/29/19 10:44 Last Infusion: 03/29/19 10:46 Dose: 0 mls/hr Documented by: [id number] Admin: 03/29/19 09:46 Dose: 100 mls/hr Documented by: [id number] Infusion: 03/29/19 09:43 Dose: 0 mls/hr Documented by: [id number] Admin: 03/29/19 08:37 Dose: 100 mls/hr Documented by: [id number] Ondansetron HCl (Zofran) 4 mg IV NOW STA Stop: 03/27/19 20:07 Last Admin: 03/27/19 20:15 Dose: 4 mg Documented by: [id number] Potassium Chloride (Klor-Con M20) 20 meq PO 0845 ONE Stop: 03/29/19 08:46 Last Admin: 03/29/19 08:48 Dose: 20 meq Documented by: [id number] Description This is a 21 electrode EEG with a single channel dedicated to limited EKG. The electrodes were placed in accordance with the International 10-20 system. Interpretation The predominant background activity consists of a very well modulated 8.5 Hz activity, of up to 60 mV in amplitude,seen symmetrically distributed over the posterior head regions bilaterally. This activity attenuates nicely with eye- opening and other alerting procedures. Photic stimulation was performed and elicited no change in the background activity and no abnormal responses were seen. Hyperventilation was not performed. A moderate amount of muscle and movement artifact activity contaminated the recording, did not hinder interpretation to any significant degree overall. Throughout the waking portion of the recording, no focal abnormalities, abnormal slow activity, or potentially epileptogenic discharges are seen. The patient entered the drowsy state and brief periods of stage II sleep with no further activation. Some more about 2/3 into the recording, the patient had an episode of eye rolling which consisted of opening and closing her eyes rapidly without clinical accompaniment (although there was eye blink artifact) she had twitching of her neck and then spread to irregular jerking of the right greater than left shoulder with some head rocking. This lasted about 3 seconds. At no time was there any abnormal discharges or rhythms seen during these movements. After the artifact of the movement her background activity was quite normal without any focal abnormalities or slowing. In summary, this EEG was normal during wakefulness and sleep. We had recorded seizure like activity on multiple occasions with a 3 second episode of shoulder and head jerking all without any clinical accompaniment. There were no focal abnormalities, potentially epileptogenic discharges or abnormal slow activity seen Clinical Correlation The abscence of potentially epileptogenic activity or other abnormalities during clinical events bruise that there were no seizures during these movements. I strongly suspect pseudoseizures in this patient. [facility] EEG Procedure Codes Indication for Procedure (1) Seizure-like activity: Neurology Neurology: [id number] EEG include record awake & sleepy
[2019-03-29] MEDS: TRAMADOL HCL 50 MG TABLET PO PRN (16:06)
[2019-03-29] MEDS: risperiDONE 1 MG TABLET PO SCH (20:16)
[2019-03-30] MEDS: SODIUM CHLORIDE 0.45 % 1,000 ML IV SCH ×3 (00:15→16:46)
[2019-03-30 06:25] LABS: Hematocrit (blood only) 22.2 % (37-47); Hemoglobin 8.1 g/dL (12.0-16.0); Mean Corpuscular Hemoglobin 35.1 pg (25-34); Mean Corpuscular Hgb Conc 36.5 g/dL (32-36); Mean Corpuscular Volume 96.1 fL (80-100); Nucleated RBC # (auto) 0.13 K/uL (0-0); Nucleated RBC % (auto) 1.5 %; Platelet Count 329 K/uL (130-400); RDW Coefficient of Variation 22.5 % (11.5-14.5); Red Blood Count 2.31 M/uL (4.2-5.4)
[2019-03-30 07:02] LABS: Alanine Aminotransferase 20 U/L (12-78); Albumin Level 3.4 gm/dl (3.4-5.0); Aspartate Aminotransferase 41 U/L (15-37); BUN Creatinine Ratio 15.8 (10-20); Blood Urea Nitrogen 8 mg/dl (7-18); Calcium 8.8 mg/dl (8.5-10.1); Carbon Dioxide 24 mmol/L (21-32); Chloride 107 mmol/L (98-107); Creatinine Clr Calc Pharmacy 148.8 ml/min; Est GFR (African American) > 150.0; Est GFR (Non-African American) 137.5; Glucose 108 mg/dl (70-99); Magnesium 1.6 mg/dl (1.8-2.4); Potassium 3.3 mmol/L (3.5-5.1); Sodium 138 mmol/L (136-145)
[2019-03-30 07:05] LABS: Albumin Globulin Ratio 0.9 (0.9-2); Alkaline Phosphatase 70 U/L (45-117); Bilirubin,Total 1.8 mg/dl (0.2-1); Globulin 3.9 gm/dl (2.5-4.0); Total Protein 7.3 gm/dl (6.4-8.2)
[2019-03-30] MEDS ORDERED: POTASSIUM CHLORIDE 20 MEQ TABCR PO STA (08:22)
[2019-03-30] MEDS: MAGNESIUM SULFATE / D5W 1 GM/100 ML BAG IV SCH ×2 (09:00→10:22)
[2019-03-30] MEDS: PANTOprazole 40 MG TAB PO SCH (09:00)
[2019-03-30] MEDS: HYDROXYUREA 500 MG CAP PO SCH ×2 (09:00→20:16)
[2019-03-30] MEDS: ESCITALOPRAM OXALATE 20 MG TAB PO SCH (09:00)
--- NOTE | 2019-03-30 10:39 | Psychiatric Consultation ---
Date of Consultation March 30, 2019 Impression / Recommendations Impression Dr. Magda Caputo was directly involved in review and discussion of the patient's case and participated in medical decision making regarding treatment recommendations. RECOMMENDATIONS: 03/30 - Agree with neurology's recommendation to re-trial lamotrigine. 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 Of course, this is a diagnosis of exclusion that would require additional work-up to rule out true epileptic events. This explanation was provided to the patient by neurology during encounter, and neurological follow-up was recommended. From a psychiatric standpoint, most effective treatment for possible non-epileptic psychogenic seizures is consistent outpatient follow-up with a therapist and psychiatrist. Offered ongoing education and counseling on these recommendations, and patient verbalized understanding. - Continue remainder of psychiatric medication regimen: escitalopram 20mg qAM and risperidone 1mg qHS. Reviewed that long-term consideration could be to taper risperidone dosing once lamotrigine is at therapeutic dose for mood and seizures, as patient reported concern of recent weight gain. Lamotrigine could also be effective to target fluctuations in mood and is generally a weight- neutral option which may improve overall medication compliance. These adjustments can be discussed and monitored by her outpatient psychiatric prescriber. - Will request case management reschedule outpatient psychiatric appointments - patient was previously scheduled with Dr. Vicente for medication management and Kobe Kennedy for therapy. - Discussed the importance of compliance with both outpatient appointments and medication regimen. - Pt reports chronic passive SI (once every 1-2 weeks per report), which is unchanged from psychiatric history reported in 01/2019 on our unit. She has been using her safety plan, and states she calls her sister during episodes of negative thoughts. These symptoms are consistent with her BPD diagnosis. She is not interested in inpatient treatment and does not meet involuntary commitment criteria. Risk Factors Assessment Do You Have Access To A Gun?: No Psych History Identifying Data 18-year-old female admitted medically on 03/28/2019 after presenting to the ED with reports of weakness. It is reported that the patient had fallen prior to admission and questions if she may have had a seizure. Neurology consultation and EEG were completed, and there is question if the seizure-like activity in non-epileptic in nature. Psychiatric consultation was requested based on patient's past psychiatric history of question of "pseudoseizure." Chief Complaint "Um, I was having seizure activity." History of Present Illness Donta Early (Tomi) is a 18-year-old [place] female, currently a [employer] attending [employer]. Pt presented to the ED after experiencing seizure-like activity and subsequent weakness, and was admitted medically on 03/28/2019 for additional work-up. Neurology consultation initiated and EEG was recommended, which did not clearly suggest epileptogenic activity was contributing to the seizure-like behavior displayed during the testing period. It is reported that the possibility of nonepileptic psychogenic seizures had been previously discussed with the patient, and remains on the differential for these episodes. Psychiatric consultation was requested due to psychiatric history and possibility of "pseudoseizures." Case was reviewed with supervising psychiatrist during morning report. It was also review directly with our neurology service in order to coordinate recommendations. Pt was cooperative with assessment today. This provider was invited to observe follow-up session with neurology, and then psychiatric evaluation was completed and joint recommendations were reviewed again. Pt is superficially cooperative, polite during conversation but is evasive with some questions. She did verbalize that her mood has not been much better since she was discharged from our unit in 01/2019. Pt states that in the interim, she spent some time with her mother and sister in [place] and then returned back to [place] for Spring semester of her [employer] year. We reviewed conversation from psychiatric discharge that patient's family was suggesting she withdraw from school for a semester. Pt states that she was never considering this option and "I told my mom I needed to at least finish the year here." Pt denies any academic concerned, stating she is continuing to attend regular classes and has not been concerned with her grades. She states she has been managing her mood concerns, admitting "I feel almost the same as before, just bad." She does report "more up days" than previously, but states she has not noticed a significant change in her mood. Pt reports symptoms of anhedonia, stating "I can really enjoy stuff anymore, which is super frustrating." Pt states that even on "up days", she experiences a lot of negative self-talk which brings her mood down. She denies any recent symptoms consistent with emmett/hypomania. Pt also admits that she had cancelled her scheduled outpatient psychiatric appointments as they interfered with her class schedule. She has not seen an outpatient psychiatric provider since before her 01/2019 admission, and states she has been getting medications with other primary care providers. Pt was asked about the presence of suicidal thoughts, and begins smiling and laughing. She states "I plead the 5th." We discussed desire for open and honest communication to ensure safety at discharge. Pt did eventually admit to passive suicidal ideation occurring once every 1-2 weeks for several years. She denies suicide attempts or acts of furtherance since 01/2019. She states that these thoughts are generally thoughts of hopelessness and worthlessness. She is also able to state that she reaches out to her sister in these moments for support. Pt states, "most of the time she just stay on the phone with me. I think it helps." Pt denies intent to act on thoughts of life not being worth living. She has had numerous overdoses in the past and does admit to chronic thoughts to "take pain medications", but states she is able to distract herself before this becomes a serious consideration. Pt does report "self-destructive behavior", which includes binging (history of such) and purging (newer onset) and "being more lax with my pain medications." Pt states that she is not overusing or abusing her pain medications, but she has noticed a lower threshold of discomfort to utilize her as needed doses. Pt denies that these behaviors are related to a desire to harm herself or end her life. Inpatient psychiatric admission was offered to patient, who did not feel this level of treatment was necessary at this time. Pt denies SI during the time of our encounter. She also denies HI, SIB, A/V hallucinations, paranoia, emmett/hypomania, other symptoms more suggestive of a bipolar presentation, OCD, PTSD, and other specific psychiatric symptoms. Pt was cooperative while education was provided on the importance of compliance with medication and outpatient appointments. She reports willingness to follow- up for both medication management and therapy. She also agreed to re-trial of lamotrigine XR per neurology's recommendations. Pt denied other needs from our service at this time. Past Psychiatric History Previous Psych History: Pt began psychiatric treatment in 2016 while attending [employer], according to previous records. She saw Saumya Trejo at [facility] in Fall 2018 for case management. Pt has previously admitted to poor compliance with outpatient psychiatric treatment. Inpatient psychiatric treatment at [facility] in 01/2019 s/p suicidal gesture. Current Psychiatric Diagnosis: Depression, borderline personality disorder Outpatient Services: Pt was discharged from our unit in 01/2019 with scheduled appointments for: - Medication management - Dr. Vicente - Therapy - Kobe Kennedy - Neurology follow-up Admits she cancelled these follow-up appointments as they interfered with her class schedule Previous Psych Admissions: [facility] on two occasions following two prior suicide attempts (overdose on pain medications at age 16 and 17). [facility] - 01/2019 following suicidal gesture of taking pills then spitting them out Do You Have Access To A Gun?: No History of Previous Suicide Attempt: Yes (numerous - ingestion of bleach/lemonade at 15; overdoses at 16 and 17y/o) Past Medication Trials: Per previous psychiatric records: 1. Sertraline 2. Lexapro 3. Risperdal 4. Lamotrigine Allergies Allergy/AdvReac Type Severity Reaction Status Date / Time No Known Allergies Allergy Verified 03/27/19 22:51 Home Medications Home Medications Medication Instructions Recorded Confirmed Type risperidone 1 mg PO DAILY 01/04/19 03/27/19 History hydroxyurea 500 mg PO BID #0 cap 01/25/19 03/27/19 Rx tramadol 50 mg PO TID PRN #10 tab 01/25/19 03/27/19 Rx escitalopram oxalate 20 mg PO QAM 03/27/19 03/27/19 History pantoprazole 40 mg PO DAILY 03/27/19 03/27/19 History lamotrigine [Lamictal XR] 50 mg PO DAILY 21 Days #21 tab 03/29/19 Rx Family History Pt denies known history of mental health conditions Substance Abuse History Pt denies tobacco use. States she has never consumed alcohol in her life. She denies any history of experimentation or regular use of illicit substances. Personal History Living Arrangements: Apartment ([employer] - living with 3 "random" roommates off campus) Born In: [place] Childhood: Per 01/2019 H&P: "Grew up in [place], raised by both parents, who still live in [place]. Has 6 siblings, but doesn't speak to any of them except one sister "because my dad doesn't know how to keep a stable relationship." States father had a previous marriage with 2 children, then her mother and had 3 children, then left her mother and had another family. She doesn't have contact with her father, but talks to her mother most days." Highest Grade Completed: High School Graduate Employment Status: Student ([employer] at [employer]) Marital Status: Single Number Of Children: None Beliefs That Will Affect Care: None History of Legal Problems: Denied Psychological Trauma History Comment: History of "childhood trauma", has not disclosed additional information Patient History Medical History Borderline personality disorder Pneumonia Seizure-like activity Sickle cell anemia (Chronic) Sickle cell crisis Surgical History No pertinent past surgical history Family History Mother Hypertension Father Ulcer Other Family history non-contributory Social History Preferred Language: Rwandan Communication Ability: Effective Automobile Repossessor Required: No Beliefs That Will Affect Care: None marital status: Single Current Living Situation: Other Current Living Situation Comment: lives in apartment with roomates 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 current occupation: [employer] Other Information That Helps Us Care for You: No Feels Safe at Home: Yes Safety Concerns: Feels Safe At This Time Smoking Status: Never smoker Do You Dip or Chew Tobacco: No ; Second Hand Exposure: No ; Hx Alcohol Use: No Hx Substance Use: No Physical Exam Psychiatric: Orientation: alert, oriented x 3 and cooperative (superficially pleasant) Apperance: appropriately dressed, appropriately groomed and appeared stated age [place] female appearing mildly overweight, seated upright in bed in no acute distress. Pt is appropriately dressed for setting, wearing a hospital gown over sweatpants. Hair is neatly styled, and level of hygiene and grooming appear adequate. Eye Contact: good eye contact Motor Behavior: no abnormal motor movements (observed while sitting upright in bed) Speech: normal rate/rhythm/volume of speech Affect: euthymic affect (appearing bright, inappropriately so at times); + mood not congruent with affect Pt is smiling frequently, even laug therese at times. While she presents as pleasant, her affecting is inconsistent with reported mood. It appears at times that patient is smiling/laughing when she is minimizing symptoms. This is not inconsistent with previous interactions with the patient Mood: + depressed mood ("almost the same as before...just bad.") and + anxious mood Thought Process: goal directed thought process, clear/coherent thought process and thought association intact Thought Content: reality based without delusions, + hopelessness (admits to intermittent hopelessness) and + self deprecation Suicidal Thoughts: denies suicidal thoughts (denies SI presently) and denies suicidal intent; + reports suicidal plan (admits to historically plan to "take pain medication", unchanged ) Pt reports passive SI every 1-2 weeks, ranging from "why is everything so hard" to "I want to kill myself." She denies active plan or intent to end her life, but intermittently things to "take my pain medications." Pt states she has been able to dismiss these thoughts, and she reports frequently calling her sister during these times to disclose the negative thinking. Pt reports ability to contract for safety outside of the inpatient psychiatric setting. She denies SI at present. Homicidal Thoughts: denies homicidal thoughts Hallucinations: no auditory hallucinations and no visual hallucinations Cognition: attention grossly intact and language grossly intact Insight: + fair insight Judgement: + fair judgement Vital Signs (Past 24 Hours): Last Vital Signs Temp 36.7 C 03/30/19 07:24 Pulse 77 03/30/19 07:24 Resp 18 03/30/19 07:24 BP 95/57 L 03/30/19 07:24 Pulse Ox 96 03/30/19 07:24 Review of Systems Constitutional: reporting generalized weakness Cardiovascular: denied Respiratory: denied Gastrointestinal: denied Neurological: reporting dizziness, increased weakness is left leg specifically Psychiatric: denies symptoms other than stated above Total of at least 10 systems reviewed, pertinent positives as above and in HPI. Results & Data (PSY) Medications Administered Escitalopram Oxalate (Lexapro Tab) 20 mg PO QAM [facility] Stop: 04/27/19 08:59 Last Admin: 03/30/19 09:00 Dose: 20 mg Documented by: [id number] Admin: 03/29/19 07:25 Dose: 20 mg Documented by: [id number] Admin: 03/28/19 07:58 Dose: 20 mg Documented by: [id number] Hydroxyurea (Hydrea) 500 mg PO BID [facility] Stop: 04/27/19 08:59 Last Admin: 03/30/19 09:00 Dose: 500 mg Documented by: [id number] Cosigned by: [id number] Admin: 03/29/19 20:15 Dose: 500 mg Documented by: [id number] Cosigned by: [id number] Admin: 03/29/19 07:25 Dose: 500 mg Documented by: [id number] Cosigned by: [id number] Admin: 03/28/19 21:19 Dose: 500 mg Documented by: [id number] Cosigned by: [id number] Admin: 03/28/19 07:58 Dose: 500 mg Documented by: [id number] Cosigned by: [id number] Sodium Chloride (1/2 Nss) 1,000 mls @ 125 mls/hr IV .Q8H [facility] Stop: 04/28/19 08:14 Last Infusion: 03/30/19 08:59 Dose: 0 mls/hr Documented by: [id number] Admin: 03/30/19 06:31 Dose: 125 mls/hr Documented by: [id number] Infusion: 03/30/19 06:31 Dose: 125 mls/hr Documented by: [id number] Admin: 03/30/19 00:15 Dose: 125 mls/hr Documented by: [id number] Infusion: 03/30/19 00:15 Dose: 125 mls/hr Documented by: [id number] Admin: 03/29/19 17:57 Dose: 125 mls/hr Documented by: [id number] Infusion: 03/29/19 17:57 Dose: 125 mls/hr Documented by: [id number] Infusion: 03/29/19 10:47 Dose: 125 mls/hr Documented by: [id number] Infusion: 03/29/19 08:37 Dose: 0 mls/hr Documented by: [id number] Admin: 03/29/19 08:37 Dose: 125 mls/hr Documented by: [id number] Magnesium Sulfate/Dextrose (Magnesium Sulfate / D5w) 1 gm in 100 mls @ 100 mls/hr IV Q1H [facility] Stop: 03/30/19 10:29 Last Admin: 03/30/19 10:22 Dose: 100 mls/hr Documented by: [id number] Infusion: 03/30/19 10:09 Dose: 0 mls/hr Documented by: [id number] Admin: 03/30/19 09:00 Dose: 100 mls/hr Documented by: [id number] Pantoprazole Sodium (Protonix) 40 mg PO DAILY [facility] Stop: 04/27/19 08:59 Last Admin: 03/30/19 09:00 Dose: 40 mg Documented by: [id number] Admin: 03/29/19 07:25 Dose: 40 mg Documented by: [id number] Admin: 03/28/19 07:58 Dose: 40 mg Documented by: [id number] Risperidone (Risperdal) 1 mg PO HS [facility] Stop: 04/27/19 01:29 Last Admin: 03/29/19 20:16 Dose: 1 mg Documented by: [id number] Admin: 03/28/19 21:19 Dose: 1 mg Documented by: [id number] Admin: 03/28/19 02:15 Dose: 1 mg Documented by: [id number] Tramadol HCl (Ultram) 50 mg PO TID PRN PRN Reason: pain Stop: 04/27/19 01:29 Last Admin: 03/29/19 16:06 Dose: 50 mg Documented by: [id number] Coding Level of Care Code 96992 U Intl Hosp Care Lvl 3
--- NOTE | 2019-03-30 10:43 | Neurology Progress Note ---
Date of Service March 30, 2019 Assessment & Plan (1) Nonepileptic episode: (2) Seizure-like activity: (3) Borderline personality disorder: (4) Depression: (5) Sickle cell anemia: Patient has interesting episodes consisting of bilateral eyes rolling back in her head (which clinically look like her moving her eyes up or to the side as much as she can), slurred or stuttering speech, and bilateral shaking movements, all with total recall of the event. This would not be consistent with a seizure disorder. EEG yesterday captured multiple spells with eye movements, head shaking, and body jerking all without any electrocerebral complement. This EEG was consistent with non epileptogenic events or pseudoseizures". However, given all of her episodes together over time, I cannot entirely exclude that some of the might actually be epileptogenic events. MRI of the brain was normal in the past and neurologic examination yesterday today is nonfocal with no meningeal signs or encephalopathy. The patient does have a history of psychiatric issues with depression and borderline personality disorder diagnoses. She has had suicide attempts in the past. In November of 2018, I tried to initiate lamotrigine and titrate for her spells, as well as her mood. Unfortunately she was not compliant. Sickle cell anemia with occasional crises. She is on hydroxyurea and tramadol. Recommendations: 1. There is no need for additional neurologic testing at this time. 2. Initiate lamotrigine XR 50 milligrams once daily, for 3 weeks then increase to 100 milligrams XR daily 3. Defer to Psychiatry for additional treatment recommendations. I would follow as an outpatient if desired Overall, I spent a total of 35 minutes with this case including review of records, direct evaluation the patient at bedside, and discussing the case with the patient at bedside, RN, and Sada Sharma PA-C, including differential diagnosis and treatment options. Subjective There is been no further episodes since her EEG yesterday afternoon. Currently she feels well, although she still has left lower extremity heaviness. Apparently she had physical therapy needed some support with walking.. CBC shows anemia and Chem profile shows a mildly low potassium and improving total bilirubin. EEG yesterday showed several episodes of different movements including eye movements, head movements, and body shaking without electrocerebral accompa niment. Blood pressure today is 95/57. Physical Exam Physical Exam: The patient is awake and alert, with normal speech and communication. Mood seems normal and affect is appropriate. Extraocular eye muscles are intact without nystagmus. There are no abnormal involuntary movements seen. Results & Data Vital Signs (Past 12 Hours) Vital Signs Temp Pulse Resp BP Pulse Ox 03/30/19 07:24 36.7 C 77 18 95/57 L 96 03/30/19 00:00 36.7 C 65 18 99/58 L 96 PG Care Time/CCT Total # of Minutes Spent Total Time Spent with Patient: Total time spent is greater than 50% in coordination of care (as documented) at patient's floor/unit and/or counseling patient: Coding Level of Care Code 85387 Subseq Hosp Care Lvl 3 Diagnoses Nonepileptic episode R56.9 Seizure-like activity R56.9 Borderline personality disorder F60.3 Depression F33.2 Active/Remission status: currently active Depression Type: major depressive disorder Major depression episode severity: severe Major depression recurrence: recurrent Psychotic features: without psychotic features Sickle cell anemia D57.00 Sickle-cell associated disorders: with unspecified crisis (1) Depression Active/Remission status: currently active Depression Type: major depressive disorder Major depression episode severity: severe Major depression recurrence: recurrent Psychotic features: without psychotic features Qualified Code(s): F33.2 - Major depressive disorder, recurrent severe without psychotic features (2) Sickle cell anemia Sickle-cell associated disorders: with unspecified crisis Qualified Code(s): D57.00 - Hb-SS disease with crisis, unspecified
--- NOTE | 2019-03-30 16:18 | Hospitalist Progress Note ---
Date of Service March 30, 2019 Assessment & Plan (1) Generalized weakness: - Has had episodes of weakness/falling with ambulation. Possibly related to pseudoseizures/psych diagnoses vs. other etiology. - Pt. has not been able to ambulate without developing weakness/requiring 2 person assist. - CT head negative; as per Neuro note, she also had a brain MRI in 2019 that was normal. - Orthostatic vital signs negative. - Neuro consulted, EEG +pseudoseizures. - IV fluids with 0.45% NS at 80 cc/hr. - Will order MRI of lumbar spine to evaluate for acute underlying abnormality leading to weakness/falls. - PT/OT recommending acute rehab; pt. does not want to proceed with recommendations. She did request crutches. - Difficulty ambulating may be related to underlying psych issues that are currently uncontrolled -- see below. - Plan for outpatient neuro follow up and EMG. (2) Pseudoseizures: - No tongue biting, loss of consciousness or bowel/bladder incontinence noted during episodes. - CT head negative. Brain MRI at [facility] in 2019 was negative. - EEG +evidence of pseudoseizures. - Neuro following, appreciate input. - Start Lamictal XR 50 mg daily as outpatient (will not have a co-pay); will give 25 mg BID as inpatient. Also sent script for 100 mg XR to be started after 3 week course. - Consulted psych, appreciate input. Recommend to f/u with Dr. Vicente and Kobe Kennedy as outpatient. (3) Anemia: - In setting of sickle cell disease. - Has required transfusion support in the past. - Recommend to transfuse for hgb <8. (4) Borderline personality disorder: - Continue Risperdal as prescribed. - Start Lamictal XR 50 mg daily x 3 weeks then XR 100 mg daily. On 25 mg BID as inpatient. (5) Depression: - Continue Lexapro as prescribed. - Admitted for suicidal ideation in Jan 2019. (6) Sickle cell anemia: - Transfuse for hgb <8. - 0.45% NS infusion at 80 cc/hr. - Tramadol prn pain. (7) Elevated LFTs: - T. bili increased along with AST. - Has been chronically elevated. - Consider RUQ US as an outpatient. (8) Electrolyte abnormality: - K level 3.3 - ordered KCl 40 mEq PO. - Mag level low - ordered mag sulfate 2 gm IV. Dispo: Med/surg with tele; discharge pending completion of MRI of L-spine and improvement in ambulation. Admission and Anticipated Discharge Date Admission Date: March 29, 2019 Supervising Physician Co-Signing Physician Notes PA Supervision Note: I did not personally see or examine the patient today, but I verified all amaro points of ROLA Trujillo's assessment and plan with the following exceptions/additions: Can discontinue IV fluids Awaiting results of MRI of lumbar spine for persistent intermittent bilateral lower extremity weakness Subjective Pt. has ongoing weakness in bilat LE, L>R. She walked with nursing staff and PA student this afternoon, had 2-3 episodes of legs "buckling" out from underneath her. Has not had any further seizure activity. PT/OT recommended 3 hours rehab per day (acute rehab) but pt. did not want to proceed with recommendations. She did not want walker but requested crutches. C/o mild low back pain. Will order MRI of lumbar spine to evaluate for underlying abnormality. Review of Systems Review of Systems: All systems reviewed & are unremarkable except as noted in HPI & below Constitutional: + fatigue and + weakness; no fever and no chills Respiratory: no cough, no dyspnea and no dyspnea on exertion Cardiovascular: no chest pain, no palpitations and no edema Gastrointestinal: no abdominal pain, no nausea and no constipation Genitourinary: no difficulty urinating Musculoskeletal: + back pain and + muscle weakness; no radicular pain and no joint pain Integumentary: no non-healing lesions Neurologic: + unsteadiness, + falls and + localized weakness; no dizziness Physical Exam Physical Exam: General: Resting comfortably HEENT: NC/AT; PERRLA with EOMI; [place] conjunctiva, MMM. No erythema of posterior pharynx Neck: Supple and nontender Cardiac: RRR Lungs: CTA bilaterally Abdomen: Bowel normoactive X 4; Nontender to palpation Extremities: Warm. No edema present Neuro: +4/5 muscle strength in bilat LE, neuro exam WNL. Skin: No rash Results & Data ([facility]) Vital Signs (Past 12 Hours) Vital Signs Temp Pulse Resp BP Pulse Ox Pulse Ox Pulse Ox 03/30/19 15:24 36.7 C 80 18 112/71 97 03/30/19 12:33 98 03/30/19 11:58 98 97 03/30/19 07:24 36.7 C 77 18 95/57 L 96 Laboratory Results 03/30/19 03/30/19 Range/Units 06:03 06:03 WBC 8.70 (4.8-10.8) K/uL RBC 2.31 L (4.2-5.4) M/uL Hgb 8.1 L (12.0-16.0) g/dL Hct 22.2 L (37-47) % MCV 96.1 (80-100) fL MCH 35.1 H (25-34) pg MCHC 36.5 H (32-36) g/dL RDW Std Deviation 79.0 H (36.4-46.3) fL RDW Coeff of Nando 22.5 H (11.5-14.5) % Plt Count 329 (130-400) K/uL MPV 9.0 (7.4-10.4) fL Absolute Nucleated RBC 0.13 H (0-0) K/uL Nucleated RBC % (auto) 1.5 % Sodium 138 (136-145) mmol/L Potassium 3.3 L (3.5-5.1) mmol/L Chloride 107 (98-107) mmol/L Carbon Dioxide 24 (21-32) mmol/L Anion Gap 7.0 (3-11) BUN 8 (7-18) mg/dl Creatinine 0.52 L (0.6-1.2) mg/dl Est Cr Clr Drug Dosing 148.8 ml/min Est GFR ( Amer) > 150.0 Est GFR (Non-Af Amer) 137.5 BUN/Creatinine Ratio 15.8 (10-20) Glucose 108 H (70-99) mg/dl Calcium 8.8 (8.5-10.1) mg/dl Magnesium 1.6 L (1.8-2.4) mg/dl Total Bilirubin 1.8 H (0.2-1) mg/dl AST 41 H (15-37) U/L ALT 20 (12-78) U/L Alkaline Phosphatase 70 (45-117) U/L Total Protein 7.3 (6.4-8.2) gm/dl Albumin 3.4 (3.4-5.0) gm/dl Globulin 3.9 (2.5-4.0) gm/dl Albumin/Globulin Ratio 0.9 (0.9-2) PG Care Time/CCT Total # of Minutes Spent Total Time Spent with Patient: Total time spent is greater than 50% in coordination of care (as documented) at patient's floor/unit and/or counseling patient: Coding Level of Care Code 08640 Subseq Hosp Care Lvl 3 Diagnoses Generalized weakness R53.1 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 Anemia D64.9 Anemia type: unspecified type Borderline personality disorder F60.3 Depression F33.2 Active/Remission status: currently active Depression Type: major depressive disorder Major depression episode severity: severe Major depression recurrence: recurrent Psychotic features: without psychotic features Sickle cell anemia D57.00 Sickle-cell associated disorders: with unspecified crisis Elevated LFTs R94.5 Electrolyte abnormality E87.8 (1) Sickle cell anemia Sickle-cell associated disorders: with unspecified crisis Qualified Code(s): D57.00 - Hb-SS disease with crisis, unspecified (2) Anemia Anemia type: unspecified type Qualified Code(s): D64.9 - Anemia, unspecified (3) Depression Active/Remission status: currently active Depression Type: major depressive disorder Major depression episode severity: severe Major depression recurrence: recurrent Psychotic features: without psychotic features Qualified Code(s): F33.2 - Major depressive disorder, recurrent severe without psychotic features
[2019-03-30] MEDS: TRAMADOL HCL 50 MG TABLET PO PRN ×2 (16:47→21:54)
[2019-03-30] MEDS ORDERED: GADOBUTROL 65ML VIAL IV PRN (19:47)
--- NOTE | 2019-03-30 20:00 | Magnetic Resonance Report ---
MR lumbar spine wo/w con CLINICAL HISTORY: 18 years-old Female presenting with bilateral lower extremity weakness for 2 to 3 d ays, low back pain, atraumatic, seizure activity. TECHNIQUE: Multisequence, multiplanar MR imaging of the lumbar spine was performed before and after t he administration of intravenous contrast. IV contrast: 5.4 mL of Gadavist. COMPARISON: None. FINDINGS: Localizer images: Unremarkable. Straightening of normal lumbar lordosis. Vertebral bodies demonstrate exaggerated endplate concavitie s that are unusual for the patient's age and presumably pathologic. Bone marrow signal intensity and alignment preserved. Intervertebral discs demonstrate mild desiccation in the mid to lower lumbar spi ne preservation of disc height. Minimal disc bulge at L4-5 and L5-S1 without significant spinal canal narrowing. There may be minimal neural foraminal narrowing at L5-S1. No evidence of mass effect on t he exiting L5 nerve roots. Spinal cord terminates in good position at L1. Cauda equina normal morphology. No epidural collection or mass. No abnormal enhancement of the cauda equina on postcontrast imaging. No paraspinal muscle e corina. Visualized portion of the sacrum intact. Flow voids within the vasculature preserved. IMPRESSION: 1. No evidence of significant spinal canal or neural foraminal narrowing. No cauda equina impingemen t. 2. Abnormal configuration of the vertebral bodies with endplate concavities. Findings raise concern for possible underlying pathology such as sickle cell anemia or, less likely, Gaucher disease. Correl ate with the patient's history. ACT 112: Negative or not required by law. Electronically signed by: Juan Alberto Olmedo M.D. 03/30/2019 7:59 PM
[2019-03-30] MEDS: lamoTRIgine 25 MG TAB PO SCH (20:16)
[2019-03-30] MEDS: risperiDONE 1 MG TABLET PO SCH (20:17)
[2019-03-31] MEDS: TRAMADOL HCL 50 MG TABLET PO PRN (05:50)
[2019-03-31 06:33] LABS: Hematocrit (blood only) 22.4 % (37-47); Hemoglobin 8.3 g/dL (12.0-16.0); Mean Corpuscular Hemoglobin 35.8 pg (25-34); Mean Corpuscular Hgb Conc 37.1 g/dL (32-36); Mean Corpuscular Volume 96.6 fL (80-100); Nucleated RBC # (auto) 0.12 K/uL (0-0); Nucleated RBC % (auto) 1.3 %; Platelet Count 332 K/uL (130-400); RDW Coefficient of Variation 22.3 % (11.5-14.5); RDW Standard Deviation 77.5 fL (36.4-46.3); Red Blood Count 2.32 M/uL (4.2-5.4); White Blood Count 9.13 K/uL (4.8-10.8)
[2019-03-31 07:06] LABS: Alanine Aminotransferase 25 U/L (12-78); Albumin Level 3.7 gm/dl (3.4-5.0); Aspartate Aminotransferase 45 U/L (15-37); BUN Creatinine Ratio 12.1 (10-20); Blood Urea Nitrogen 7 mg/dl (7-18); Calcium 9.4 mg/dl (8.5-10.1); Carbon Dioxide 25 mmol/L (21-32); Chloride 104 mmol/L (98-107); Creatinine Clr Calc Pharmacy 143.2 ml/min; Est GFR (African American) > 150.0; Est GFR (Non-African American) 135.8; Glucose 98 mg/dl (70-99); Magnesium 1.6 mg/dl (1.8-2.4); Potassium 3.6 mmol/L (3.5-5.1); Sodium 137 mmol/L (136-145)
[2019-03-31 07:09] LABS: Albumin Globulin Ratio 0.9 (0.9-2); Alkaline Phosphatase 74 U/L (45-117); Bilirubin,Total 2.1 mg/dl (0.2-1); Globulin 4.1 gm/dl (2.5-4.0); Total Protein 7.8 gm/dl (6.4-8.2)
[2019-03-31] MEDS: lamoTRIgine 25 MG TAB PO SCH (09:42)
[2019-03-31] MEDS: HYDROXYUREA 500 MG CAP PO SCH (09:42)
[2019-03-31] MEDS: PANTOprazole 40 MG TAB PO SCH (09:42)
[2019-03-31] MEDS: ESCITALOPRAM OXALATE 20 MG TAB PO SCH (09:42)
--- NOTE | 2019-03-31 10:23 | Neurology Progress Note ---
Date of Service March 31, 2019 Assessment & Plan (1) Nonepileptic episode: (2) Seizure-like activity: (3) Borderline personality disorder: (4) Depression: (5) Sickle cell anemia: Patient has interesting episodes consisting of bilateral eyes rolling back in her head (which clinically look like her moving her eyes up or to the side as much as she can), slurred or stuttering speech, and bilateral shaking movements, all with total recall of the event. This would not be consistent with a seizure disorder. EEG yesterday captured multiple spells with eye movements, head shaking, and body jerking all without any electrocerebral complement. This EEG was consistent with non epileptogenic events or pseudoseizures". However, given all of her episodes together over time, I cannot entirely exclude that some of the might actually be epileptogenic events. MRI of the brain was normal in the past and neurologic examination yesterday today is nonfocal with no meningeal signs or encephalopathy. The patient does have a history of psychiatric issues with depression and borderline personality disorder diagnoses. She has had suicide attempts in the past. In November of 2018, I tried to initiate lamotrigine and titrate for her spells, as well as her mood. Unfortunately she was not compliant. Sickle cell anemia with occasional crises. She is on hydroxyurea and tramadol. Patient has chronic low back pain from sickle cell crises and relatively new left lower extremity weakness. I do not see any pathologic weakness on examination today. MRI of the lumbar spine showed some bony degeneration (likely from sickle cell crisis) with no spinal stenosis or disc problems. He c annot entirely exclude a radicular problem in the leg. Recommendations: 1. There is no need for additional neurologic testing at this time. I can't perform EMG and nerve conduction studies of the left leg as an outpatient 2. Continue lamotrigine XR 50 milligrams once daily, for 3 weeks then increase to 100 milligrams XR daily 3. Defer to Psychiatry for additional treatment recommendations. I would follow as an outpatient if desired Overall, I spent a total of 25 minutes with this case including review of records, direct evaluation the patient at bedside, and discussing the case with the patient at bedside, RN, and Sada Sharma PA-C, including differential diagnosis and treatment options. Subjective Her today and has not had any significant seizures over the last 24 hours. Today she still has some tightness and weakness in her left lower extremity diffusely and also has chronic low back pain. She tells me that low back pain is part of her typical sickle cell crisis symptoms. MRI of the lumbar spine was reviewed. She has no spinal stenosis or disc problems. She has bony degeneration and concave bones which are consistent with previous sickle cell crises. Physical Exam Physical Exam: She is awake and alert. Speech is without aphasia or dysarthria. Mood and affect are normal appropriate. Extraocular eye muscles are intact without nystagmus and there is no facial droop. Motor strength is initially 5/5 in all major muscle groups in the legs bilaterally and symmetrically. She does have some giveaway weakness in the left lower extremity. Gait is slow and she limps favoring the left leg. No abnormal involuntary movements were noted. Results & Data Vital Signs (Past 12 Hours) Vital Signs Temp Pulse Resp BP Pulse Ox 03/31/19 08:14 36.8 C 66 12 95/57 L 95 03/31/19 00:00 36.7 C 75 20 110/64 94 PG Care Time/CCT Total # of Minutes Spent Total Time Spent with Patient: Total time spent is greater than 50% in coordination of care (as documented) at patient's floor/unit and/or counseling patient: Coding Level of Care Code 02039 Subseq Hosp Care Lvl 2 Diagnoses Nonepileptic episode R56.9 Seizure-like activity R56.9 Borderline personality disorder F60.3 Depression F33.2 Active/Remission status: currently active Depression Type: major depressive disorder Major depression episode severity: severe Major depression recurrence: recurrent Psychotic features: without psychotic features Sickle cell anemia D57.00 Sickle-cell associated disorders: with unspecified crisis (1) Depression Active/Remission status: currently active Depression Type: major depressive disorder Major depression episode severity: severe Major depression recurrence: recurrent Psychotic features: without psychotic features Qualified Code(s): F33.2 - Major depressive disorder, recurrent severe without psychotic features (2) Sickle cell anemia Sickle-cell associated disorders: with unspecified crisis Qualified Code(s): D57.00 - Hb-SS disease with crisis, unspecified
--- NOTE | 2019-03-31 12:46 | Discharge Summary ---
Date of Service March 31, 2019 Admission HPI Per Admitting Provider Donta Olivares" is a 18-year-old female with a past medical history of bipolar disorder, borderline personality, suicidal gesture, and sickle cell anemia with last hospital admission 02/04 to 02/07 for suicidal gesture who presents with 1 day of weakness while standing and falling to the floor with concern she might be having a seizure. Heath reports that her symptoms began this afternoon when she went to stand up and took 2 steps and fell to the floor and might have had a seizure. She reports she feels slightly dizzy when standing, and has had dizziness when standing for several months. She did not lose consciousness, have bowel or bladder incontinence, or tongue biting during this episode. She did not experience any other symptoms, and reports she has had mild sickle cell crises in the prior few weeks but has not been in pain or had a crisis today. She reports she has seen cardiology for orthostasis, and is aware she has a heart murmur which had an echo several months ago. Denies loss of consciousness, chest pain, chest pressure. She denies change in vision, focal weakness, numbness, and tingling. She attempted to ambulate several times with emergency department staff and dropped to the floor each time, and reports she was not able to sustain her body weight. She reports her mood is "fine ", but that she is hungry. Reports she lives at home with several other students have [facility] and things are okay at home. Denies current suicidal ideation. Reports that she has not taken Lamictal in several weeks, and is due to take her Risperdal today. No recent medication changes. Past medical history: Reviewed, as above Medications: Reviewed. Takes hydroxyurea, Lexapro, risperidone. Has not taken lamotrigine since her last hospital admission, strongly recommended to take this on discharge. Past surgical history: N/A. Reviewed Family history: Mother with hypertension Social history: She is a student from [employer]. [facility], reports things are okay at home. Denies alcohol use. Denies tobacco use. Denies substance use. [employer] major. Discharge Exam Constitutional WD/WN, vitals as above Eyes + anicteric sclerae ENMT external ear and nose normal, oropharynx normal Neck trachea midline, no thyromegaly Respiratory normal respiratory effort, lungs clear to auscultation Cardiovascular RRR, no murmur, no edema Chest (Breasts) Chest: normal inspection of chest Gastrointestinal (Abdomen) normal bowel sounds, soft, nontender, no hepatosplenomegaly Musculoskeletal Extremities: extremities normal to inspection; no cyanosis and no clubbing Skin no rashes, warm and dry Neurologic moves all extremities and awake; + abnormal deep tendon reflexes (1+ DTRs in LEs, no ankle clonus) and no focal motor deficits (5/5 strength in LEs bilat) Motor/Sensory: no tremor Psychiatric A+Ox3, euthymic affect Lymphatic no lymphedema Discharge Data Allergies Allergy/AdvReac Type Severity Reaction Status Date / Time No Known Allergies Allergy Verified 03/27/19 22:51 Consultations 03/27/19 22:30 ED Decision to Admit Stat 03/28/19 14:28 Consult Neurology Routine 03/29/19 16:26 Consult Psychiatry Routine Ordered Studies 03/27/19 20:06 CT head/brain wo con Stat 03/30/19 16:04 MR lumbar spine wo/w con Routine Hospital Course (1) Generalized weakness: - Has had episodes of weakness/falling with ambulation. Possibly related to pseudoseizures/psych diagnoses vs. other etiology. - Pt. has not been able to ambulate without developing weakness/requiring 2 person assist. - CT head negative; as per Neuro note, she also had a brain MRI in 2019 that was normal. - Orthostatic vital signs negative. - Neuro consulted, EEG +pseudoseizures. - IV fluids with 0.45% NS at 80 cc/hr. - Will order MRI of lumbar spine to evaluate for acute underlying abnormality leading to weakness/falls. - PT/OT recommending acute rehab; pt. does not want to proceed with recommendations. She did request crutches. - Difficulty ambulating may be related to underlying psych issues that are currently uncontrolled -- see below. - Plan for outpatient neuro follow up and EMG. (2) Pseudoseizures: - No tongue biting, loss of consciousness or bowel/bladder incontinence noted during episodes. - CT head negative. Brain MRI at [facility] in 2019 was negative. - EEG +evidence of pseudoseizures. - Neuro following, appreciate input. - Start Lamictal XR 50 mg daily as outpatient (will not have a co-pay); will give 25 mg BID as inpatient. Also sent script for 100 mg XR to be started after 3 week course. - Consulted psych, appreciate input. Recommend to f/u with Dr. Vicente and Kobe Kennedy as outpatient. (3) Anemia: - In setting of sickle cell disease. - Has required transfusion support in the past. - Recommend to transfuse for hgb <8. (4) Borderline personality disorder: - Continue Risperdal as prescribed. - Start Lamictal XR 50 mg daily x 3 weeks then XR 100 mg daily. On 25 mg BID as inpatient. (5) Depression: - Continue Lexapro as prescribed. - Admitted for suicidal ideation in Jan 2019. (6) Sickle cell anemia: - Transfuse for hgb <8. - 0.45% NS infusion at 80 cc/hr. - Tramadol prn pain. (7) Elevated LFTs: - T. bili increased along with AST. - Has been chronically elevated. - Consider RUQ US as an outpatient. (8) Electrolyte abnormality: - K level 3.3 - ordered KCl 40 mEq PO. - Mag level low - ordered mag sulfate 2 gm IV. Dispo: Med/surg with tele; discharge pending completion of MRI of L-spine and improvement in ambulation. Discharge Plan Discharge Items Patient Disposition: Home - Self-Care Reason For Visit: WEAKNESS,FALL Discharge Diagnosis: Weakness and falls, Non-epileptic seizures Condition on Discharge: Fair Goals: You have been hospitalized for an acute medical problem. During your stay at [facility], we have made an effort to correct the problem that brought you to the hospital while keeping you as comfortable as possible. Medications were used to bring your condition under control and your discharge instructions will include directions for any medications you should take after leaving the hospital. Please make sure you see your Primary Care Provider as part of your follow up plan. Activity: As commented below Exercise/Sports: Gradually increase as tolerated Weightbearing: Full weightbearing Weightbearing Comment: with assistance of crutches Non-emergency contact: Primary Care Provider, Specialist, Neurologist and Psychiatrist Call non-emergency contact if: you have any medication questions, your symptoms worsen and you have a fever Follow-up/Referrals: Landry Kennedy LPC [Other] - 04/05/19 11:00 am (Please, follow up with Landry Kennedy LPC (licensed professional counselor) on FridayApril 05 at 11:00 am. *He asks that you call him so that he can email you the "new patient intake packet," prior to the appointment. His phone number is [phone]. You can either call or text him, at this number. His office is located at [address]. He said he rents a space from the [facility]. When you enter the [facility] parking lot, go to the right.) Radhames Oquendo III, MD [Physician] - 04/05/19 2:00 pm (Please follow up with neuro in 2-3 weeks. Your appointment is with janis Wolf. If you need to change this appointment, please call [phone].) Dennis Vicente M.D. [Outside Practitioners] - 04/08/19 11:00 am (Please, follow up with Dr. Dennis Vicente [facility] (Psychiatrist) on April 08 at 11:00 am. If you need to change this appointment, call the office at [phone].) Donna Houser MD [Primary Care Provider] - 04/06/19 11:00 am (PCP LOCATED IN [place]. An appointment is schedule for you at the [facility] on [address] with [address] Haider. If you need to change this appointment, please call [phone].) Diet: Regular Addtl Attending Provider Instructions: 1. Weakness and falls * Please use crutches with ambulation. * Please follow up with PCP to discuss this hospital admission. * Please follow up with neurology as scheduled to discuss obtaining EMG study. * Crutches were provided prior to discharge to aid in ambulation. 2. Seizure like [id number] seizures proven on EEG study * Please take all home medications as prescribed -- DO NOT MISS DOSES. * Please take Lamictal extended release 50 mg daily for 3 weeks then increase dose to 100 mg daily. * follow up with Neurology as scheduled 3. Bipolar disorder * Please continue all home meds as prescribed, INCLUDING the addition of Lamictal as noted above. * Please follow up with Dr. Vicente for medication management and Kobe Kennedy for therapy. * It is very important to follow compliance with outpatient medications and appointments. 4. Low magnesium levels * Take magnesium oxide 250 mg by mouth once daily-this can be obtained at the drugstore. 5. Hand eczema-start hydrocortisone cream twice daily as needed for rash on the back of hands-this can be bought at the drugstore. 6. Sickle cell disease-you should follow-up with your railroad construction director at [facility] Pending Studies at Discharge: No Stand-Alone Forms: My [facility] Medications and DC Order Prescriptions: New lamotrigine [Lamictal XR] 50 mg tablet extended release 24hr 50 mg PO DAILY 21 Days Qty: 21 RF: 0 lamotrigine [Lamictal XR] 100 mg tablet extended release 24hr 100 mg PO DAILY Qty: 30 RF: 2 escitalopram oxalate 20 mg Tablet 20 mg PO QAM Qty: 30 RF: 0 hydrocortisone 1 % cream 1 appln TOP BID PRN (Reason: rash on hands) Qty: 15 RF: 0 magnesium 250 mg tablet 250 mg PO DAILY Qty: 30 RF: 0 hydroxyurea 500 mg capsule 500 mg PO BID Qty: 60 RF: 0 pantoprazole 40 mg tablet,delayed release (DR/EC) 40 mg PO DAILY Qty: 30 RF: 0 risperidone 1 mg tablet 1 mg PO HS Qty: 30 RF: 0 Continued tramadol 50 mg tablet 50 mg PO TID PRN (Reason: pain) Qty: 10 RF: 0 Discontinued escitalopram oxalate 10 mg tablet 20 mg PO QAM RF: 0 Discharge Orders: Discharge Order (Routine); Ordered 03/31/19 Ordered By: Sada Pandya Admission Data Admit Date/Time: 03/29/19 14:16 Attending Provider: Sada Pandya Admit Provider: Juan Alberto Cunningham Primary Care Provider: Donna Houser Other Providers: Cj Elias ; Radhames Oquendo III ; Holly Webster Coding Diagnoses Generalized weakness R53.1 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 Anemia D64.9 Anemia type: unspecified type Borderline personality disorder F60.3 Depression F33.2 Active/Remission status: currently active Depression Type: major depressive disorder Major depression episode severity: severe Major depression recurrence: recurrent Psychotic features: without psychotic features Sickle cell anemia D57.00 Sickle-cell associated disorders: with unspecified crisis Elevated LFTs R94.5 Electrolyte abnormality E87.8
== END 2019-03-31 14:10 | disposition home or self-care (01) | DRG 948 ==
LOC: ED 19:40 → 2W 19:40 → SUATTDRO 03-28 00:20 → 2W 03-28 01:09

== ENCOUNTER 2019-10-24 19:32 | Inpatient (IN) ==
[2019-10-24] MEDS ORDERED: SODIUM CHLORIDE 0.9% 1000ML 1,000 ML IV ONE (20:31)
[2019-10-24] MEDS ORDERED: HYDROmorphone INJ 0.5 MG/0.5 ML SYR IV STA (20:31)
[2019-10-24] MEDS ORDERED: ONDANSETRON INJ 2 MG/ML 2 ML VIAL IV STA (20:35)
[2019-10-24 21:02] LABS: Hematocrit (blood only) 28.3 % (37-47); Mean Corpuscular Hemoglobin 36.6 pg (25-34); Mean Corpuscular Hgb Conc 35.3 g/dL (32-36); Mean Corpuscular Volume 103.7 fL (80-100); Mean Platelet Volume 9.3 fL (7.4-10.4); Nucleated RBC # (auto) 0.04 K/uL (0-0); Nucleated RBC % (auto) 0.8 %; Platelet Count 324 K/uL (130-400); RDW Coefficient of Variation 22.5 % (11.5-14.5); RDW Standard Deviation 83.6 fL (36.4-46.3); Red Blood Count 2.73 M/uL (4.2-5.4); Reticulocyte % 9.2 % (0.5-2.0); Reticulocytes # 0.25 10^6/uL (0.02-0.10); White Blood Count 4.53 K/uL (4.8-10.8)
[2019-10-24 21:16] LABS: Pregnancy Test, Serum Negative (Negative)
[2019-10-24 21:27] LABS: Alanine Aminotransferase 23 U/L (12-78); Albumin Level 3.8 gm/dl (3.4-5.0); Aspartate Aminotransferase 35 U/L (15-37); BUN Creatinine Ratio 7.4 (10-20); Blood Urea Nitrogen 5 mg/dl (7-18); Calcium 9.3 mg/dl (8.5-10.1); Carbon Dioxide 28 mmol/L (21-32); Chloride 106 mmol/L (98-107); Creatinine Clr Calc Pharmacy 131.1 ml/min; Est GFR (African American) 146.4; Est GFR (Non-African American) 126.3; Glucose 77 mg/dl (70-99); Lipase 141 U/L (73-393); Potassium 3.8 mmol/L (3.5-5.1); Sodium 140 mmol/L (136-145)
[2019-10-24 21:32] LABS: Albumin Globulin Ratio 0.9 (0.9-2); Alkaline Phosphatase 86 U/L (45-117); Globulin 4.2 gm/dl (2.5-4.0); Troponin I < 0.015 ng/ml (0-0.045)
--- NOTE | 2019-10-24 21:46 | Emergency Department Note ---
Impression & Plan Sickle cell pain crisis ED Provider Note Provider: Tremaine Hernandez MD DATE OF SERVICE: 10/24/2019 CHIEF COMPLAINT: Chest pain and body pain HISTORY OF PRESENT ILLNESS: Patient is a 19-year-old female with a history of sickle cell disease and acute chest syndrome as well as borderline personality sort of presenting here today complaining of sickle cell crisis. Patient states that this is been present for approximate the past 10 days. Was seen here several days ago treated with pain medication was able to get home. Patient states she had significant scores she had to get done and could not stay. Patient denies any fever at this time but does states she is intermittently having little bit of nausea. Had diarrhea several days ago. Complained of pain across her chest into her shoulders back and neck as well as head. This is not significantly different from her prior sickle cell crises. Denies significant shortness of breath. Denies sick contact that she is aware of. Has had some chest pain for quite some time. Tried her tramadol at home earlier without significant improvement of symptoms. REVIEW OF SYSTEMS: A total of 10 review of systems was obtained and negative except as stated above in the HPI. PAST MEDICAL HISTORY: As noted above MEDICATIONS: Reviewed home medication list SOCIAL HISTORY: [employer] student, from the [place] area, non-smoker PHYSICAL EXAM: GENERAL: alert and oriented in no acute distress on stretcher Head: normocephalic and atraumatic EYES: No injection, discharge or icterus. PERRL NECK: Trachea midline. Supple. ENT: Mucous membranes pink and moist. LUNGS: Airway patent. No retractions. Breath sounds clear with good air entry bilaterally. HEART: Regular rate and rhythm. No chest wall tenderness ABDOMEN: Soft with some very slight periumbilical tenderness. No right lower quadrant tenderness. No guarding. No rebound. Not peritoneal. SKIN: Acyanotic, warm, dry, without rashes EXTREMITIES: Without swelling, tenderness or deformity NEUROLOGICAL: No focal deficits. No aphasia. No facial droop or slurred speech. EK bpm sinus rhythm first-degree AV block. No PVC or PAC. No acute ST segment elevation is appreciable. Some V1 and V2 T wave inversions are noted. Normal QTC. CONTINUOUS CARDIAC MONITORING: was ordered and showed a heart rate of 74 bpm in normal sinus rhythm Patient's laboratory studies and imaging reviewed. Differential includes Infection, dehydration, metabolic abnormality, hypo/hyperglycemia, electrolyte disturbance, anemia, hypoxia, cardiac sources, intracerebral event, toxicologic, neurologic, as well as other pathologies. IMPRESSION/MEDICAL DECISION MAKING: Patient is complaining of sickle cell pain crisis. Likely no fever reported she is afebrile here. No significant leukocytosis although some slight leukopenia is noted compared to previous value. Her second type count is stable. Anemia is a little bit better today at 10 versus 9.52 days ago. Bilirubin slightly elevated consistent with likely some sickling as well. No sign of electrolyte abnormalities or renal dysfunction. Negative . Undetectable procalcitonin and lower suspicion for a bacterial superinfection; she is also well-appearing systemically. No detectable troponin in the EKG without signi ficant changes to gait myocarditis or acute ACS. I doubt pericarditis. Treated here with IV pain medicine of Dilaudid and Toradol. Patient states on reassessment elevated dizziness and this has helped things some. Again she not acutely tachycardic or hypoxic here. Lower suspicion given this for an acute PE. Discussed with her options were given she still with significant pain and failed her outpatient home pain medicine after discussion she wished to be evaluated for possible further care here in the hospital. Hospitalist contacted. DIAGNOSIS: Sickle cell pain crisis DISPOSITION: Hospitalist will evaluate Patient was agreeable with this plan. Past Med/Surg History Medical History (Updated 10/24/19 @ 22:12 by Tremaine Hernandez M.D.) Borderline personality disorder Pneumonia Seizure-like activity Sickle cell anemia Sickle cell crisis Surgical History No pertinent past surgical history Family History Mother Hypertension Father Ulcer Other Family history non-contributory Social History Smoking Status: Never smoker Second Hand Exposure: No; Hx Alcohol Use: No Hx Substance Use: No Preferred Language: French Communication Ability: Effective Motor Power Connector Required: No Beliefs That Will Affect Care: None marital status: Single Current Living Situation: Other Current Living Situation Comment: lives in apartment with roomates 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 current occupation: [employer] major Feels Safe at Home: Yes Allergies Allergies Allergy/AdvReac Type Severity Reaction Status Date / Time No Known Allergies Allergy Verified 10/24/19 20:51 Home Meds Home Medications Medication Instructions Recorded Confirmed clonazepam [Klonopin] 1 mg PO DAILY 10/22/19 10/24/19 escitalopram oxalate [Lexapro] 10 mg PO DAILY 10/22/19 10/24/19 hydroxyurea See Rx Instructions .ROUTE .COMPLEX 10/22/19 10/24/19 Previous Rx's Medication Instructions Recorded oxycodone 5 mg PO Q6H PRN #12 tab 10/22/19 Results & Data (ED) Vital Signs Vital Signs - 24 hr 10/24/19 19:40 10/24/19 21:33 10/24/19 21:39 Temperature 37.2 C Temperature Source Oral Pulse Rate 72 65 Pulse Rate from SpO2 Sensor 66 Pulse Rhythm Regular Respiratory Rate 18 20 Respiratory Effort / Characteristics Non-Labored Spontaneous Respiratory Depth Normal Respiratory Pattern Regular Blood Pressure 119/76 92/71 L Blood Pressure Mean 90 83 Pulse Oximetry 100 100 Oxygen Delivery Method Room Air Room Air Sepsis Recent Fever Within 48 Hours No Sepsis New/Unexplained Change in Mental Status No Sepsis Action Taken by Nursing No Action Required 10/24/19 22:00 Temperature Temperature Source Pulse Rate 61 Pulse Rate from SpO2 Sensor 61 Pulse Rhythm Respiratory Rate 16 Respiratory Effort / Characteristics Respiratory Depth Respiratory Pattern Blood Pressure 106/58 L Blood Pressure Mean 76 Pulse Oximetry 100 Oxygen Delivery Method Sepsis Recent Fever Within 48 Hours Sepsis New/Unexplained Change in Mental Status Sepsis Action Taken by Nursing Laboratory Data Result diagrams: 10/24/19 20:47 10/24/19 20:47 Lab Results 10/24/19 10/24/19 10/24/19 Range/Units 20:47 20:47 20:47 WBC 4.53 L (4.8-10.8) K/uL RBC 2.73 L (4.2-5.4) M/uL Hgb 10.0 L (12.0-16.0) g/dL Hct 28.3 L (37-47) % MCV 103.7 H (80-100) fL MCH 36.6 H (25-34) pg MCHC 35.3 (32-36) g/dL RDW Std Deviation 83.6 H (36.4-46.3) fL RDW Coeff of Nando 22.5 H (11.5-14.5) % Plt Count 324 (130-400) K/uL MPV 9.3 (7.4-10.4) fL Reticulocyte % (Auto) 9.2 H (0.5-2.0) % Reticulocyte # 0.25 H (0.02-0.10) 10^6/uL Absolute Nucleated RBC 0.04 H (0-0) K/uL Nucleated RBC % (auto) 0.8 % Neutrophils % (Manual) 24.3 % Lymphocytes % (Manual) 62.7 % Monocytes % (Manual) 10.4 % Eosinophils % (Manual) 2.6 % Neutrophils # (Manual) 1.10 L (1.4-6.5) K/uL Total Absolute Neuts 1.10 L (1.4-6.5) K/uL Lymphocytes # (Manual) 2.84 (1.2-3.4) K/uL Total Abs Lymphocytes 2.84 (1.2-3.4) K/uL Monocytes # (Manual) 0.47 (0.11-0.59) K/uL Eosinophils # (Manual) 0.12 (0-0.5) K/uL Giant Platelets 1+ Polychromasia 1+ Poikilocytosis Present Anisocytosis Present Macrocytosis Present Sickle Cells 1+ Target Cells 1+ [place] Bodies Occasional Sodium 140 (136-145) mmol/L Potassium 3.8 (3.5-5.1) mmol/L Chloride 106 (98-107) mmol/L Carbon Dioxide 28 (21-32) mmol/L Anion Gap 6.0 (3-11) BUN 5 L (7-18) mg/dl Creatinine 0.66 (0.6-1.2) mg/dl Est Cr Clr Drug Dosing 131.1 ml/min Est GFR ( Amer) 146.4 Est GFR (Non-Af Amer) 126.3 BUN/Creatinine Ratio 7.4 L (10-20) Glucose 77 (70-99) mg/dl Lactate (0.4-2.0) mmol/L Calcium 9.3 (8.5-10.1) mg/dl Total Bilirubin 2.0 H (0.2-1) mg/dl AST 35 (15-37) U/L ALT 23 (12-78) U/L Alkaline Phosphatase 86 (45-117) U/L Troponin I < 0.015 (0-0.045) ng/ml Total Protein 8.0 (6.4-8.2) gm/dl Albumin 3.8 (3.4-5.0) gm/dl Globulin 4.2 H (2.5-4.0) gm/dl Albumin/Globulin Ratio 0.9 (0.9-2) Lipase 141 (73-393) U/L Procalcitonin (0-0.5) ng/ml HCG, Qual Negative (Negative) 10/24/19 10/24/19 Range/Units 20:47 20:47 WBC (4.8-10.8) K/uL RBC (4.2-5.4) M/uL Hgb (12.0-16.0) g/dL Hct (37-47) % MCV (80-100) fL MCH (25-34) pg MCHC (32-36) g/dL RDW Std Deviation (36.4-46.3) fL RDW Coeff of Nando (11.5-14.5) % Plt Count (130-400) K/uL MPV (7.4-10.4) fL Reticulocyte % (Auto) (0.5-2.0) % Reticulocyte # (0.02-0.10) 10^6/uL Absolute Nucleated RBC (0-0) K/uL Nucleated RBC % (auto) % Neutrophils % (Manual) % Lymphocytes % (Manual) % Monocytes % (Manual) % Eosinophils % (Manual) % Neutrophils # (Manual) (1.4-6.5) K/uL Total Absolute Neuts (1.4-6.5) K/uL Lymphocytes # (Manual) (1.2-3.4) K/uL Total Abs Lymphocytes (1.2-3.4) K/uL Monocytes # (Manual) (0.11-0.59) K/uL Eosinophils # (Manual) (0-0.5) K/uL Giant Platelets Polychromasia Poikilocytosis Anisocytosis Macrocytosis Sickle Cells Target Cells [place] Bodies Sodium (136-145) mmol/L Potassium (3.5-5.1) mmol/L Chloride (98-107) mmol/L Carbon Dioxide (21-32) mmol/L Anion Gap (3-11) BUN (7-18) mg/dl Creatinine (0.6-1.2) mg/dl Est Cr Clr Drug Dosing ml/min Est GFR ( Amer) Est GFR (Non-Af Amer) BUN/Creatinine Ratio (10-20) Glucose (70-99) mg/dl Lactate 1.1 (0.4-2.0) mmol/L Calcium (8.5-10.1) mg/dl Total Bilirubin (0.2-1) mg/dl AST (15-37) U/L ALT (12-78) U/L Alkaline Phosphatase (45-117) U/L Troponin I (0-0.045) ng/ml Total Protein (6.4-8.2) gm/dl Albumin (3.4-5.0) gm/dl Globulin (2.5-4.0) gm/dl Albumin/Globulin Ratio (0.9-2) Lipase (73-393) U/L Procalcitonin < 0.05 (0-0.5) ng/ml HCG, Qual (Negative) Administered Medications Discontinued Medications Hydromorphone HCl (Hydromorphone Inj 0.5 Mg/0.5 Ml Syr) 1 mg IV NOW STA Stop: 10/24/19 20:32 Last Admin: 10/24/19 21:15 Dose: 1 mg Documented by: [id number] Sodium Chloride (Nss 1000ml) 1,000 mls @ 999 mls/hr IV .Q1H1M ONE Stop: 10/24/19 21:31 Last Admin: 10/24/19 21:15 Dose: 999 mls/hr Documented by: [id number] Ketorolac Tromethamine (Ketorolac Tromethamine 15 Mg/Ml Vial) 15 mg IV NOW STA Stop: 10/24/19 22:11 Last Admin: 10/24/19 22:26 Dose: 15 mg Documented by: [id number] Ondansetron HCl (Ondansetron Inj 2 Mg/Ml 2 Ml Vial) 4 mg IV NOW STA Stop: 10/24/19 20:36 Last Admin: 10/24/19 21:10 Dose: 4 mg Documented by: [id number] Discharge Plan Visit Data Chief Complaint: Illness Stated Complaint: NAUSEA, BODY PAIN, SICKLE CELL CRISIS ED Provider: Tremaine Hernandez Discharge Problem: Sickle cell pain crisis Forms Stand Alone Forms: My [facility] Prescriptions Prescriptions: No Action escitalopram oxalate [Lexapro] 10 mg Tablet 10 mg PO DAILY RF: 0 hydroxyurea 500 mg capsule See Rx Instructions .ROUTE .COMPLEX RF: 0 clonazepam [Klonopin] 0.5 mg tablet 1 mg PO DAILY RF: 0 oxycodone 5 mg tablet 5 mg PO Q6H PRN (Reason: pain) Qty: 12 RF: 0
[2019-10-24 22:03] LABS: ALC (manual) 2.84 K/uL (1.2-3.4); Anisocytosis Present; Eosinophils # (manual) 0.12 K/uL (0-0.5); Eosinophils % (manual) 2.6 %; Giant Platelets 1+; Howell-Jolly Bodies Occasional; Lymphocytes # (manual) 2.84 K/uL (1.2-3.4); Lymphocytes % (manual) 62.7 %; Macrocytosis Present; Monocytes # (manual) 0.47 K/uL (0.11-0.59); Monocytes % (manual) 10.4 %; Neutrophils % (manual) 24.3 %; Poikilocytosis Present; Polychromasia 1+; Sickle Cells 1+; Target Cells 1+
[2019-10-24] MEDS ORDERED: KETOROLAC TROMETHAMINE 15 MG/ML VIAL IV STA (22:10)
--- NOTE | 2019-10-24 23:06 | History & Physical Report ---
Date of Service October 24, 2019 Assessment & Plan (1) Sickle cell crisis: Admit to medical surgical floor Tylenol 650 mg p.o. every 6 hours PRN mild pain or temperature Oxycodone 5 mg p.o. every 4 hours PRN moderate pain Dilaudid 0.5 mg IV every 2 hours as needed severe pain Toradol 15 mg IV every 6 hours Zofran 4 mg IV every 6 hours PRN NSS + KCl 20 mEq at 100 mils per hour Continue hydroxyurea 1000 mg every morning and 500 mg every afternoon Present on Admission?: Yes (2) Borderline personality disorder: Borderline personality disorder/depression-continue Lexapro 10 mg p.o. daily and clonazepam 1 mg p.o. daily Present on Admission?: Yes (3) Depression: See above Present on Admission?: Yes History of Present Illness Chief Complaint: The patient had presented to the emergency department 2 days ago, with symptoms of sickle cell crisis, however, she reports that she felt she would be able go home with pain medications. However, because of worsening pain today, she presented to the ED for reassessment Primary Care Provider: [facility] The patient is a 19-year-old female with a past medical history including sickle cell crisis, acute chest syndrome, pseudoseizures, elevated LFTs, anemia, borderline personality disorder, depression, suicide gesture, dehydration and sickle cell anemia. She presents as above. She denies any recent travels or sick exposures. Her primary symptoms of pain control at this time involve across her entire anterior chest wall. Allergies Allergy/AdvReac Type Severity Reaction Status Date / Time No Known Allergies Allergy Verified 10/24/19 20:51 Home Medications Home Medications Medication Instructions Recorded Confirmed Type clonazepam [Klonopin] 1 mg PO DAILY 10/22/19 10/24/19 History escitalopram oxalate [Lexapro] 10 mg PO DAILY 10/22/19 10/24/19 History hydroxyurea See Rx Instructions .ROUTE .COMPLEX 10/22/19 10/24/19 History oxycodone 5 mg PO Q6H PRN #12 tab 10/22/19 10/24/19 Rx Past Med/Surg History Medical History (Updated 10/24/19 @ 22:12 by Tremaine Hernandez M.D.) Borderline personality disorder Pneumonia Seizure-like activity Sickle cell anemia Sickle cell crisis Surgical History No pertinent past surgical history Family History Mother Hypertension Father Ulcer Other Family history non-contributory Social History Smoking Status: Never smoker Second Hand Exposure: No; Hx Alcohol Use: Yes Alcohol type: beer, wine and hard liquor Hx Substance Use: No Preferred Language: Croatian Communication Ability: Effective Employment Instructional Associate Required: No Beliefs That Will Affect Care: None marital status: Single Current Living Situation: Other Current Living Situation Comment: Roommates 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 current occupation: [employer] Feels Safe at Home: Yes Safety Concerns: Feels Safe At This Time Review of Systems Review of Systems: The patient denies palpitations, shortness of breath, dyspnea on exertion, cough, lower extremity swelling, sore throat, fevers, chills, sweats, nausea, vomiting, diarrhea , constipation, abdominal pain, pelvic pain, blood in urine or stool, dysuria, urinary frequency or urgency, lightheadedness, dizziness, headache, memory loss, loss of consciousness, rash, abnormal bruising or bleeding, imbalance, focal weakness, numbness or tingling in arms or legs, back or neck pain, or night sweats. The review of systems is otherwise negative other than for that already noted above, and at least 10 systems have been reviewed. Physical Exam Physical Exam: The patient is awake, alert and oriented 3, well developed and well nourished, normocephalic and atraumatic, lying in bed and in no acute distress. HEENT--PERRL, EOMI, mucous membranes and oropharynx mildly dry. Neck--supple. No JVD. No bruits. Thyroid normal, trachea midline, no adenopathy. Heart--normal S1 and S2. No murmurs, rubs or gallops. Lungs--clear bilaterally, no respiratory distress, no accessory muscle use. Abdomen--normal bowel sounds and soft. Nontender. Nondistended. Extremities--no cyanosis or clubbing. No edema. Dermatologic--normal skin turgor, normal color, no abnormal lymph nodes, no rash. Neurologic--cranial nerves II through XII grossly intact. Rheumatologic--normal range of motion. Psychiatric--normal affect. Results & Data Results & Data ([facility]) Vital Signs (Past 12 Hours) Vital Signs Temp Pulse Resp BP Pulse Ox 10/24/19 22:00 61 16 106/58 L 100 10/24/19 21:39 65 20 92/71 L 100 10/24/19 19:40 99.0 F 72 18 119/76 100 Laboratory Results Laboratory Results WBC 4.53 K/uL (4.8-10.8) L 10/24/19 20:47 RBC 2.73 M/uL (4.2-5.4) L 10/24/19 20:47 Hgb 10.0 g/dL (12.0-16.0) L 10/24/19 20:47 Hct 28.3 % (37-47) L 10/24/19 20:47 MCV 103.7 fL (80-100) H 10/24/19 20:47 MCH 36.6 pg (25-34) H 10/24/19 20:47 MCHC 35.3 g/dL (32-36) 10/24/19 20:47 RDW Std Deviation 83.6 fL (36.4-46.3) H 10/24/19 20:47 RDW Coeff of Nando 22.5 % (11.5-14.5) H 10/24/19 20:47 Plt Count 324 K/uL (130-400) 10/24/19 20:47 MPV 9.3 fL (7.4-10.4) 10/24/19 20:47 Reticulocyte % (Auto) 9.2 % (0.5-2.0) H 10/24/19 20:47 Reticulocyte # 0.25 10^6/uL (0.02-0.10) H 10/24/19 20:47 Absolute Nucleated RBC 0.04 K/uL (0-0) H 10/24/19 20:47 Nucleated RBC % (auto) 0.8 % 10/24/19 20:47 Neutrophils % (Manual) 24.3 % 10/24/19 20:47 Lymphocytes % (Manual) 62.7 % 10/24/19 20:47 Monocytes % (Manual) 10.4 % 10/24/19 20:47 Eosinophils % (Manual) 2.6 % 10/24/19 20:47 Neutrophils # (Manual) 1.10 K/uL (1.4-6.5) L 10/24/19 20:47 Total Absolute Neuts 1.10 K/uL (1.4-6.5) L 10/24/19 20:47 Lymphocytes # (Manual) 2.84 K/uL (1.2-3.4) 10/24/19 20:47 Total Abs Lymphocytes 2.84 K/uL (1.2-3.4) 10/24/19 20:47 Monocytes # (Manual) 0.47 K/uL (0.11-0.59) 10/24/19 20:47 Eosinophils # (Manual) 0.12 K/uL (0-0.5) 10/24/19 20:47 Giant Platelets 1+ 10/24/19 20:47 Polychromasia 1+ 10/24/19 20:47 Poikilocytosis Present 10/24/19 20:47 Anisocytosis Present 10/24/19 20:47 Macrocytosis Present 10/24/19 20:47 Sickle Cells 1+ 10/24/19 20:47 Target Cells 1+ 10/24/19 20:47 [place] Bodies Occasional 10/24/19 20:47 Sodium 140 mmol/L (136-145) 10/24/19 20:47 Potassium 3.8 mmol/L (3.5-5.1) 10/24/19 20:47 Chloride 106 mmol/L (98-107) 10/24/19 20:47 Carbon Dioxide 28 mmol/L (21-32) 10/24/19 20:47 Anion Gap 6.0 (3-11) 10/24/19 20:47 BUN 5 mg/dl (7-18) L 10/24/19 20:47 Creatinine 0.66 mg/dl (0.6-1.2) 10/24/19 20:47 Est Cr Clr Drug Dosing 131.1 ml/min 10/24/19 20:47 Est GFR ( Amer) 146.4 10/24/19 20:47 Est GFR (Non-Af Amer) 126.3 10/24/19 20:47 BUN/Creatinine Ratio 7.4 (10-20) L 10/24/19 20:47 Glucose 77 mg/dl (70-99) 10/24/19 20:47 Lactate 1.1 mmol/L (0.4-2.0) 10/24/19 20:47 Calcium 9.3 mg/dl (8.5-10.1) 10/24/19 20:47 Total Bilirubin 2.0 mg/dl (0.2-1) H 10/24/19 20:47 AST 35 U/L (15-37) 10/24/19 20:47 ALT 23 U/L (12-78) 10/24/19 20:47 Alkaline Phosphatase 86 U/L (45-117) 10/24/19 20:47 Troponin I < 0.015 ng/ml (0-0.045) 10/24/19 20:47 Total Protein 8.0 gm/dl (6.4-8.2) 10/24/19 20:47 Albumin 3.8 gm/dl (3.4-5.0) 10/24/19 20:47 Globulin 4.2 gm/dl (2.5-4.0) H 10/24/19 20:47 Albumin/Globulin Ratio 0.9 (0.9-2) 10/24/19 20:47 Lipase 141 U/L (73-393) 10/24/19 20:47 Procalcitonin < 0.05 ng/ml (0-0.5) 10/24/19 20:47 HCG, Qual Negative (Negative) 10/24/19 20:47 Code Status & VTE Plan Code Status Full code VTE Prophylaxis Plan VTE Prophylaxis will be ordered: Yes PG Care Time/CCT Total # of Minutes Spent Total Time Spent with Patient: Total time spent is greater than 50% in coordination of care (as documented) at patient's floor/unit and/or counseling patient: Coding Level of Care Code 75921 Initial Inpt Care Lvl 3 Diagnoses Sickle cell crisis D57.00 Borderline personality disorder F60.3 Depression F33.2 Active/Remission status: currently active Depression Type: major depressive disorder Major depression episode severity: severe Major depression recurrence: recurrent Psychotic features: without psychotic features (1) Depression Active/Remission status: currently active Depression Type: major depressive disorder Major depression episode severity: severe Major depression recurrence: recurrent Psychotic features: without psychotic features Qualified Code(s): F33.2 - Major depressive disorder, recurrent severe without psychotic features
[2019-10-25] MEDS ORDERED: MAGNESIUM HYDROXIDE SUSP 30 ML UDC PO PRN (00:12)
[2019-10-25] MEDS ORDERED: ONDANSETRON INJ 2 MG/ML 2 ML VIAL IV PRN (00:12)
[2019-10-25] MEDS ORDERED: ALUMINUM/MAGNESIUM SUSP 30 ML UDC PO PRN (00:12)
[2019-10-25] MEDS ORDERED: ZOLPIDEM TARTRATE 5 MG TAB PO PRN (00:12)
[2019-10-25] MEDS ORDERED: ACETAMINOPHEN 325 MG TAB PO PRN (00:12)
[2019-10-25] MEDS: HYDROmorphone INJ 0.5 MG/0.5 ML SYR IV PRN ×6 (00:28→21:19)
[2019-10-25] MEDS: NSS + 20MEQ KCL 20 MEQ/1,000 ML BAG IV SCH ×2 (00:38→10:38)
[2019-10-25] MEDS: KETOROLAC TROMETHAMINE 15 MG/ML VIAL IV SCH ×4 (00:39→19:10)
[2019-10-25] MEDS: HYDROXYUREA 500 MG CAP PO SCH ×4 (00:39→21:14)
[2019-10-25] MEDS: OXYCODONE HCL IR 5 MG TAB (IMMEDIATE RELEASE) PO PRN ×3 (03:49→15:29)
[2019-10-25] MEDS ORDERED: clonazePAM 1 MG TAB PO ONE (07:49)
[2019-10-25] MEDS: ESCITALOPRAM OXALATE 10 MG TAB PO SCH ×2 (07:50→07:54)
[2019-10-25] MEDS: clonazePAM 1 MG TAB PO SCH (07:51)
--- NOTE | 2019-10-25 08:43 | XRay Report ---
XR chest 1V portable HISTORY: 19 years-old Female cp acute atypical chest pain COMPARISON: Chest radiograph 10/22/2019, CTA chest 04/12/2019 TECHNIQUE: Portable AP view of the chest FINDINGS: Cardiomediastinal and hilar silhouettes are unchanged and within normal limits. There is no pneumotho rax, pleural effusion, airspace consolidation or overt pulmonary edema. Bones of the chest appear nor mal. IMPRESSION: No acute process. ACT 112: Negative or not required by law. The above report was generated using voice recognition software. It may contain grammatical, syntax o r spelling errors. Electronically signed by: Arturo Jennings M.D. 10/25/2019 8:42 AM
[2019-10-25] MEDS: SODIUM CHLORIDE 0.9% 1000ML 1,000 ML IV SCH ×2 (13:10→21:18)
[2019-10-25 16:45] LABS: Appearance Urine Clear (Clear); Bilirubin Urine Negative (Negative); Blood Urine Negative (Negative); Color Urine Yellow; Glucose Urine UA Negative (Negative); Ketones Urine Negative (Negative); Leukocyte Esterase Urine Negative (Negative); Nitrite Urine Negative (Negative); Protein Urine Negative (Negative); Specific Gravity Urine 1.007 (1.000-1.030); Urobilinogen Urine Negative (Negative); pH Urine 7.5 (4.5-7.5)
--- NOTE | 2019-10-25 16:52 | Hospitalist Progress Note ---
Date of Service October 25, 2019 Assessment & Plan (1) Sickle cell crisis: A patient be hydrated, oxygen supplied. She continues complain of pain Tylenol 650 mg p.o. every 6 hours PRN mild pain or temperature Oxycodone increased from 5 to 10 mg p.o. every 4 hours PRN moderate pain Dilaudid 0.5 mg IV every 2 hours as needed severe pain Toradol 15 mg IV every 6 hours Zofran 4 mg IV every 6 hours PRN NSS@125 an hour Continue hydroxyurea 1000 mg every morning and 500 mg every afternoon Hemoglobin has remained stable (2) Borderline personality disorder: Borderline personality disorder/depression-continue Lexapro 10 mg p.o. daily and clonazepam 1 mg p.o. daily concerns of escalating opiate dosing based on her request given her psychiatric history concern for possible secondary gain Patient blood glucose intolerance and thyroid these will be rechecked in the morning with a hemoglobin A1c and a TSH with reflex T4 (3) Depression: See above Admission and Anticipated Discharge Date Admission Date: October 24, 2019 Subjective Patient states she is overall feels improved but still having some diffuse discomfort with some chest discomfort pleuritic in nature not focal and no focal joint discomfort. Multiple questions about her somatic count including previous discussions of glucose intolerance and thyroid disease. Review of Systems Review of Systems: Mild distress and fatigue, (patient claims that her discomfort is much greater than her physical signs that she is emitting to me objectively) Minor diffuse dull headache, no blurry or double vision no speech or swallowing issues Diffuse pleuritic chest pain, without pressure or palpitations Subjectively shortness of breath, speaking full sentences without pausing to breathe, no cough or wheezes no abdominal pain, nausea or vomiting, diarrhea or constipation no dysuria, hematuria or frequency no focal joint pain or swelling no back pain, CVA tenderness or radicular pain no bruising, bleeding or rashes no focal signs of weakness or numbness or altered sensation no complaints or anxiety or depression. Physical Exam Physical Exam: The patient appeared well nourished and normally developed. Vital signs as documented. Head exam is normocephalic atraumatic no scleral icterus Neck is without JVD, thyromegaly, or carotid bruits. Lungs are clear to auscultation, no focal loss of breath sounds Cardiac exam, Rhythm is regular.. No murmurs, rubs or gallops. Abdominal exam reveals normal bowel sounds, soft non tender, no masses Extremities are nonedematous and both pedal pulses are normal. Neurologic exam is alert and oriented, no focal loss of strength or sensation Skin is without bruises or rashes Psychologically is without concerns for anxiety or depression. Results & Data Results & Data ([facility]) Vital Signs (Past 12 Hours) Vital Signs Temp Pulse Resp BP Pulse Ox 10/25/19 16:13 97.7 F 78 16 114/74 100 10/25/19 07:29 97.9 F 70 15 105/63 99 PG Care Time/CCT Total # of Minutes Spent Total Time Spent with Patient: Total time spent is greater than 50% in coordination of care (as documented) at patient's floor/unit and/or counseling patient: Coding Level of Care Code 47721 Subseq Hosp Care Lvl 2 Diagnoses Sickle cell crisis D57.00 Borderline personality disorder F60.3 Depression F33.2 Active/Remission status: currently active Depression Type: major depressive disorder Major depression episode severity: severe Major depression recurrence: recurrent Psychotic features: without psychotic features (1) Depression Active/Remission status: currently active Depression Type: major depressive disorder Major depression episode severity: severe Major depression recurrence: recurrent Psychotic features: without psychotic features Qualified Code(s): F33.2 - Major depressive disorder, recurrent severe without psychotic features
[2019-10-25] MEDS ORDERED: OXYCODONE HCL IR 5 MG TAB (IMMEDIATE RELEASE) PO PRN (17:05)
[2019-10-26] MEDS: KETOROLAC TROMETHAMINE 15 MG/ML VIAL IV SCH ×2 (00:33→08:25)
[2019-10-26] MEDS: HYDROmorphone INJ 0.5 MG/0.5 ML SYR IV PRN (01:50)
[2019-10-26] MEDS: SODIUM CHLORIDE 0.9% 1000ML 1,000 ML IV SCH (05:22)
[2019-10-26] MEDS: ESCITALOPRAM OXALATE 10 MG TAB PO SCH (08:25)
[2019-10-26] MEDS: HYDROXYUREA 500 MG CAP PO SCH ×2 (08:26)
[2019-10-26] MEDS: clonazePAM 1 MG TAB PO SCH (08:26)
--- NOTE | 2019-10-26 14:43 | Discharge Summary ---
Date of Service October 26, 2019 Admission HPI Per Admitting Provider The patient is a 19-year-old female with a past medical history including sickle cell crisis, acute chest syndrome, pseudoseizures, elevated LFTs, anemia, borderline personality disorder, depression, suicide gesture, dehydration and sickle cell anemia. She presents as above. She denies any recent travels or sick exposures. Her primary symptoms of pain control at this time involve across her entire anterior chest wall. Principal Diagnosis Sickle cell crisis Discharge Exam The patient appeared well despite complaining of pain she does not appear to express objective signs of pain Vital signs as documented. Lungs are clear to auscultation and appear unlabored Cardiac exam, Rhythm is regular.. No murmurs, rubs or gallops. Abdominal exam reveals normal bowel sounds, soft non tender, no masses Extremities are nonedematous and both pedal pulses are normal. Neurologic exam is alert and oriented, no focal loss of strength or sensation Skin is without bruises or rashes Psychologically is without concerns for anxiety or depression. Discharge Data Allergies Allergy/AdvReac Type Severity Reaction Status Date / Time No Known Allergies Allergy Verified 10/24/19 20:51 Consultations 10/24/19 22:32 ED Decision to Admit Stat 10/25/19 00:12 Consult Case Management - Discharge Planning Routine Hospital Course (1) Sickle cell crisis: Her pain is tolerable and she wishes to leave Tylenol 650 mg p.o. every 6 hours PRN mild pain or temperature Oxycodone a small prescription be given for use as an outpatient she will be referred to [facility]. Given her direct asking for more oxycodone I have some concerns of the use of this medication Continue hydroxyurea 1000 mg every morning and 500 mg every afternoon Hemoglobin has remained stable Patient requested testing for her thyroid her TSH was normal and no reflex T4 was sent Patient requested testing for borderline diabetes and evaluation prompted discussion by our pathologists as follows: Evalulation of the HPLC chromatogram shows increased hemoglobin F (14.1%). Increased hemoglobin F has been shown to cause artificial lowering of A1c levels by other immunoassay methods. Due to this, the specimen was not sent to [facility] for evaluation. Due to the elevated hemoglobin F an alternative method (i.e. average blood glucose levels) is suggested to follow this patient. In adults increased levels of hemoglobin F may be seen in a variety of conditions including thalassemia's, hemoglobinopathies and hereditary persistence of hemoglobin. If clinically indicated then hemoglobin electrophoresis is recommended for further evaluation of the variant hemoglobin present. Juan Alberto Trejo M.D. (2) Borderline personality disorder: Borderline personality disorder/depression-continue Lexapro 10 mg p.o. daily and clonazepam 1 mg p.o. daily concerns of escalating opiate dosing based on her request given her psychiatric history concern for possible secondary gain (3) Depression: See above Total Time Total Time Spent Total Time Spent (In Minutes): It required greater than 30 minutes to prepare this patient for discharge. This included counseling with the patient regarding good choices regarding sleep hydration and nutrition to reduce sickle cell crisis and also discussion of her pain control which prompted her to ask for more opiates. I also do will have her follow-up with the [facility] services in short duration Discharge Plan Discharge Items Patient Disposition: Home - Self-Care Reason For Visit: SICKLE CELL CRISIS Discharge Diagnosis: sicle cell crisis Activity: Per Instructions section Activity Comment: gradually increase physical activity Non-emergency contact: Primary Care Provider Call non-emergency contact if: you have any medication questions and your symptoms worsen Follow-up/Referrals: [facility] [Primary Care Provider] - 11/01/19 9:20 am Diet: Regular Addtl Attending Provider Instructions: it is very important that you take good care of your body adequate sleep good hydration healthy foods, limiting sugary drinks and treats follow up with [facility] this week Pending Studies at Discharge: No Stand-Alone Forms: My [facility], Smoking Cessation Medications and DC Order Prescriptions: Continued escitalopram oxalate [Lexapro] 10 mg Tablet 10 mg PO DAILY RF: 0 hydroxyurea 500 mg capsule See Rx Instructions .ROUTE .COMPLEX RF: 0 clonazepam [Klonopin] 0.5 mg tablet 1 mg PO DAILY RF: 0 oxycodone 5 mg tablet 5 mg PO Q6H PRN (Reason: pain) Qty: 10 RF: 0 Discharge Orders: Discharge Order (Routine); Ordered 10/26/19 Ordered By: Harpreet Alamo Admission Data Admit Date/Time: 10/24/19 23:06 Attending Provider: Hrapreet Alamo Admit Provider: Chandler Mena Primary Care Provider: [facility] Other Providers: Chandler Mena Other Interventions: Discharge Summary Assessment (RN) Last Done: 10/26/19 10:20 Coding Level of Care Code D/C Day Management >30 mins Diagnoses Sickle cell crisis D57.00 Borderline personality disorder F60.3 Depression F33.2 Active/Remission status: currently active Depression Type: major depressive disorder Major depression episode severity: severe Major depression recurrence: recurrent Psychotic features: without psychotic features
--- NOTE | 2019-10-26 18:23 | Electrocardiogram Report ---
Test Reason : Blood Pressure : / mmHG Vent. Rate : 071 BPM Atrial Rate : 071 BPM P-R Int : 218 ms QRS Dur : 092 ms QT Int : 380 ms P-R-T Axes : 035 057 033 degrees QTc Int : 412 ms Sinus rhythm with 1st degree A-V block Otherwise normal ECG When compared with ECG of 22-OCT-2019 00:13, No significant change was found Confirmed by Slick Simmons ([id number]) on 10/26/2019 6:23:07 PM Referred By: REFERRED SELF Confirmed By:Torey Simmons
--- NOTE | 2019-10-26 18:23 | Electrocardiogram Report ---
Test Reason : Blood Pressure : / mmHG Vent. Rate : 055 BPM Atrial Rate : 055 BPM P-R Int : 236 ms QRS Dur : 092 ms QT Int : 420 ms P-R-T Axes : 048 059 034 degrees QTc Int : 401 ms Sinus bradycardia with sinus arrhythmia with 1st degree A-V block Otherwise normal ECG When compared with ECG of 24-OCT-2019 21:19, (unconfirmed) Nonspecific T wave abnormality has replaced inverted T waves in Anterior leads Confirmed by Slick Simmons ([id number]) on 10/26/2019 6:22:51 PM Referred By: REFERRED SELF Confirmed By:Torey Simmons
[2019-10-27 05:56] LABS: EAG mmol/L 3.9 (calc); HA1C 4.1 (<5.7)
== END 2019-10-26 12:58 | disposition home or self-care (01) | DRG 812 ==
LOC: ED 19:32 → SUATTDRO 23:06 → 3W 23:06 → UNDODISIN 10-26 11:32

== ENCOUNTER 2019-11-18 14:14 | Inpatient (IN) ==
[2019-11-18] MEDS ORDERED: DiphenhydrAMINE HCL 50 MG/ML VIAL IM STA (14:32)
[2019-11-18] MEDS ORDERED: LORazepam 2 MG/ML VIAL (IM USE) IM STA (14:32)
[2019-11-18] MEDS ORDERED: HALOPERIDOL LACTATE 5 MG/ML 1 ML VIAL IM STA (14:32)
[2019-11-18 15:15] LABS: Basophils # (auto) 0.02 K/uL (0-0.2); Basophils % (auto) 0.3 %; Eosinophils % (auto) 1.4 %; Hemoglobin 8.9 g/dL (12.0-16.0); Immature Granulocytes # (auto) 0.02 K/uL (0.00-0.02); Immature Granulocytes % (auto) 0.3 %; Lymphocytes # (auto) 2.63 K/uL (1.2-3.4); Lymphocytes % (auto) 35.6 %; Mean Corpuscular Hemoglobin 35.9 pg (25-34); Mean Corpuscular Hgb Conc 35.6 g/dL (32-36); Mean Corpuscular Volume 100.8 fL (80-100); Mean Platelet Volume 8.9 fL (7.4-10.4); Monocytes # (auto) 0.49 K/uL (0.11-0.59); Monocytes % (auto) 6.6 %; Neutrophils # (auto) 4.13 K/uL (1.4-6.5); Neutrophils % (auto) 55.8 %; Nucleated RBC % (auto) 1.3 %; Platelet Count 352 K/uL (130-400); RDW Coefficient of Variation 21.6 % (11.5-14.5); RDW Standard Deviation 77.7 fL (36.4-46.3); Red Blood Count 2.48 M/uL (4.2-5.4); White Blood Count 7.39 K/uL (4.8-10.8)
[2019-11-18 15:47] LABS: BUN Creatinine Ratio 3.9 (10-20); Creatinine Clr Calc Pharmacy 157.1 ml/min; Est GFR (African American) 149.4; Est GFR (Non-African American) 128.9; Potassium 3.2 mmol/L (3.5-5.1)
[2019-11-18 15:56] LABS: Anisocytosis Present; Polychromasia 1+; Target Cells 1+
[2019-11-18 16:07] LABS: Bilirubin,Total 2.6 mg/dl (0.2-1); Calcium 9.6 mg/dl (8.5-10.1); Globulin 4.2 gm/dl (2.5-4.0); Thyroid Stimulating Hormone 1.86 uIu/ml (0.300-4.500); Total Protein 8.2 gm/dl (6.4-8.2)
[2019-11-18] MEDS ORDERED: SODIUM CHLORIDE 0.9% 1000ML 1,000 ML IV ONE (16:20)
[2019-11-18] MEDS ORDERED: DEXTROSE 5% IV ONE ×2 (16:23)
[2019-11-18] MEDS ORDERED: ACETYLCYSTEINE IV ONE ×2 (16:23)
[2019-11-18 16:41] LABS: Base Excess VBG -0.2 mEq/L; Oxygen Saturation VBG 92.3 %; pH VBG 7.3 (7.36-7.41)
[2019-11-18 16:43] LABS: INR 1.2 (0.9-1.1); Partial Thromboplastin Ratio 0.9; Partial Thromboplastin Time 24.2 Seconds (21.0-31.0); Prothrombin Time 12.2 Seconds (9.0-12.0)
--- NOTE | 2019-11-18 17:10 | Emergency Department Note ---
History of Present Illness General Chief Complaint: Overdose (Intentional) Stated Complaint: drug overdose Time Seen by Provider: 11/18/19 14:24 History of Present Illness Provider Complaint: + intentional overdose Onset (ago): unknown HPI Narrative: 19-year-old female presents emergency department screaming "kill me! kill me now! I want to !". Patient will not give any other history just asking to . She is repeatedly asking for potassium to be delivered through her IV so she will quickly. EMS is with the patient and report that the patient tried to overdose today. They are unclear when she ingested her pills or how many of her pills she ingested. They brought her medications with her. Intent: suicide attempt How Overdose Was Discovered: called 911 Context: Intentional Overdose: prior psychiatric issues Treatments Prior to Arrival: none Home Medications Home Medications Medication Instructions Recorded Confirmed Type clonazepam [Klonopin] 0.5 mg PO BID 10/22/19 11/18/19 History lorazepam [Ativan] 0.5 mg PO Q6H PRN #6 tab 11/14/19 11/18/19 Rx celecoxib 100 mg PO BID 11/18/19 11/18/19 History duloxetine 20 mg PO QAM 11/18/19 11/18/19 History folic acid 2 mg PO DAILY 11/18/19 11/18/19 History oxycodone 5 mg PO Q8H PRN 11/18/19 11/18/19 History tramadol 50 mg PO Q12 PRN 11/18/19 11/18/19 History Allergies Allergy/AdvReac Type Severity Reaction Status Date / Time No Known Allergies Allergy Verified 10/24/19 20:51 Past Med/Surg History Medical History Borderline personality disorder Pneumonia Seizure-like activity Sickle cell anemia Sickle cell crisis Surgical History No pertinent past surgical history Family History Mother Hypertension Father Ulcer Other Family history non-contributory Social History Smoking Status: Unknown if ever smoked Second Hand Exposure: No; Hx Alcohol Use: Yes Alcohol type: beer, wine and hard liquor Hx Substance Use: No Preferred Language: Slovak Communication Ability: Effective Machine Packer Required: No Beliefs That Will Affect Care: None marital status: Single Current Living Situation: Other Current Living Situation Comment: Roommates 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 current occupation: [employer] major Feels Safe at Home: Declines to Answer Assistive Devices: None Review of Systems Unobtainable due to mental health condition Physical Exam Vital Signs: Vital Signs - 24 hr 11/18/19 14:45 11/18/19 14:52 11/18/19 16:00 Temperature 36.7 C Temperature Source Axillary Pulse Rate 120 H Respiratory Rate 24 Respiratory Effort / Characteristics Non-Labored Sponta neous Respiratory Depth Normal Respiratory Patter n Regular Blood Pressure 151/85 H Blood Pressure Allyson n 107 Pulse Oximetry 94 Oxygen Delivery Me thod Room Air Room Air Sepsis Recent Feve r Within 48 Hours No Sepsis New/Unexpla ined Change in Men consuelo Status N/A Sepsis Action Take n by Nursing No Action Required Physical Exam: Physical Exam GENERAL: Patient is screaming and begging for her people to kill her. EYES: Conjunctivae and EOM are normal. Pupils are equal, round, and reactive to light. Right eye exhibits no discharge. Left eye exhibits no discharge. No scleral icterus. NECK: Supple CV: Tachycardic rate, regular rhythm, normal heart sounds and intact distal pulses. There is no peripheral edema. Palpable radial pulses bue. PULM/CHEST: Rhonchi bilaterally ABD: The abdomen is soft MUSC/SKEL: Normal range of motion. There is no peripheral edema, tenderness or deformity. NEURO: She is alert motor and sensation in tact grossly. SKIN: Skin is warm and dry. She is not diaphoretic. PSYCH: Patient is crying and asking to and for people to kill her. Course Course 1424: The patient was evaluated in room B9. A complete history and physical exam was performed. After initial assessment while in the room the patient tried to take the pulse oximeter which was placed on her for initial vitals and try to strangle herself with it. This had to be wrestled away from the patient by security. Patient was restrained and then given Haldol 5 mg IM, Ativan 2 mg IM and Benadryl 50 mg IM so she would be more sedated and not try to harm herself again. She was placed on one-to-one. Cardiac monitoring: An order was placed for continuous cardiac monitoring. The monitor shows a rate of 110 with sinus tachycardia rhythm Patient medication bottles were brought with her: She has an prescription bottle of oxycodone 5 mg tablets that was filled with 42 tablets on October 20, 2019. This bottle is completely empty. She has a prescription bottle of duloxetine. This was filled on November 08, 2019. There are 24 tablets in the prescription bottle and there are 4 tablets missing from its fill date She has a prescription bottle for tramadol 50 mg. This was filled on August 06, 2019. There are 41 tablets in the bottle and there are 19 tablets missing from its fill date. She has a prescription bottle for clonazepam. This filled in November 08, 2019. The 49 tablets in the bottle and there are 7 tablets missing from its fill date. She has a prescription for folic acid. This was filled on August 13, 2019, there are 149 tablets in the bottle and 31 are missing since its fill date. 1545: Spoke with [facility]. She states the patient should be observed for 6 to 12 hours given her polysubstance overdose. Poison control states to use benzodiazepines for agitation from here on out and to avoid Haldol. 1606: Lab calls and states that the patient is too icteric and they cannot do a Tylenol or salicylate level on this patient. They did state that they could send the labs out to [facility] and we would get the results back in a few days. I did discuss with medical laboratory technicians who spoke with lab and pathology to see if we can get salicylate and tylenol back sooner. Spoke with poison control who asked for a VBG to see if the blood is acidotic from possible salicylate toxicity. It is thought a possible salicylate toxicity is very unlikely as the patient does not have any anion gap acidosis and there bicarb level is within normal limits. I did discuss with Po[facility] Control [facility] that I thought would be in the patient's best interest given her polysubstance overdose to possibly start the patient on NAC since will not get the Tylenol level back on the patient. Amy from the poison center states they will contact the wood model maker. 1613: Received a call from [facility] who states that they can send the salicylate and acetaminophen level down to [facility]. There will be a turnaround time but will be seen sooner than sending the bloodwork [facility]. I explained to Mr. Castrejon that we are discussing with Poison Control Center if the patient should be started on neck or not and will contact him back about sending the lab work down to [facility]. 1622: Spoke with [facility] who did discuss with the wood model maker credit union teller and she is stated that the wood model maker agreed that we should initiate NAC therapy. NAC protocols initiated. I did discuss with her that the lab stated that we could send the blood work down to [facility] to get a acetaminophen and salicylate level. She stated that if the tylenol level comes back negative after being run in [facility] the NAC can be stopped at any time, however if we do not receive the Tylenol level back in time to continue with the NAC protocol until it is completed. She also recommended that we get an EKG, CMP, and VBG in 4 hours. She states that the Poison Control Center will continue to follow this patient's case. She states the wood model maker stated there is no need to start sodium bicarbonate therapy for possible salicylate ingestion at this time given her negative anion gap. Patient is currently sleeping after receiving the Haldol Ativan and Benadryl. Her oxygen saturation did decrease slightly and the patient was started on 2 L nasal cannula, is thought that this was due to the medications used to sedate her. [facility] hospitalist Dr. Velez will be notified of the admission. 1752: Spoke with lab and inform them to send the salicylate and a cinnamon level to [facility] for running on their machines. hydrological technical officer states they will arrange transport of this. Administered Medications Sodium Chloride (Nss 1000ml) 1,000 mls @ 999 mls/hr IV .Q1H1M ONE Stop: 11/18/19 17:20 Last Admin: 11/18/19 16:50 Dose: 999 mls/hr Documented by: [id number] Acetylcysteine 12,140 mg/ (Dextrose) 260.7 mls @ 200 mls/hr IV ONCE ONE; Protocol Stop: 11/18/19 17:41 Last Admin: 11/18/19 16:48 Dose: 200 mls/hr Documented by: [id number] Discontinued Medications Diphenhydramine HCl (Diphenhydramine Hcl 50 Mg/Ml Vial) 50 mg IM NOW STA Stop: 11/18/19 14:33 Last Admin: 11/18/19 14:36 Dose: 50 mg Documented by: [id number] Haloperidol Lactate (Haloperidol Lactate 5 Mg/Ml 1 Ml Vial) 5 mg IM NOW STA Stop: 11/18/19 14:33 Last Admin: 11/18/19 14:36 Dose: 5 mg Documented by: [id number] Lorazepam (Lorazepam 2 Mg/Ml Vial (Im Use)) 2 mg IM NOW STA Stop: 11/18/19 14:33 Last Admin: 11/18/19 14:36 Dose: 2 mg Documented by: [id number] Medical Decision Making Laboratory Data Result diagrams: 11/18/19 15:00 11/18/19 15:00 Lab Results 11/18/19 11/18/19 11/18/19 Range/Units 15:00 15:00 15:00 WBC 7.39 (4.8-10.8) K/uL RBC 2.48 L (4.2-5.4) M/uL Hgb 8.9 L (12.0-16.0) g/dL Hct 25.0 L (37-47) % MCV 100.8 H (80-100) fL MCH 35.9 H (25-34) pg MCHC 35.6 (32-36) g/dL RDW Std Deviation 77.7 H (36.4-46.3) fL RDW Coeff of Nando 21.6 H (11.5-14.5) % Plt Count 352 (130-400) K/uL MPV 8.9 (7.4-10.4) fL Immature Gran % (Auto) 0.3 % Neut % (Auto) 55.8 % Lymph % (Auto) 35.6 % [place] % (Auto) 6.6 % Eos % (Auto) 1.4 % Baso % (Auto) 0.3 % Neut # (Auto) 4.13 (1.4-6.5) K/uL Lymph # (Auto) 2.63 (1.2-3.4) K/uL [place] # (Auto) 0.49 (0.11-0.59) K/uL Eos # (Auto) 0.10 (0-0.5) K/uL Baso # (Auto) 0.02 (0-0.2) K/uL Immature Gran # (Auto) 0.02 (0.00-0.02) K/uL Absolute Nucleated RBC 0.10 H (0-0) K/uL Nucleated RBC % (auto) 1.3 % Polychromasia 1+ Anisocytosis Present Target Cells 1+ PT (9.0-12.0) Seconds INR (0.9-1.1) APTT (21.0-31.0) Seconds PTT Ratio VBG pH (7.36-7.41) VBG pCO2 (38-50) mmHg VBG pO2 mmHg VBG HCO3 mmol/L VBG O2 Saturation % VBG Base Excess mEq/L Barometric Pressure mm/Hg Sodium 140 (136-145) mmol/L Potassium 3.2 L (3.5-5.1) mmol/L Chloride 108 H (98-107) mmol/L Carbon Dioxide 27 (21-32) mmol/L Anion Gap 5.0 (3-11) BUN 2 L (7-18) mg/dl Creatinine 0.62 (0.6-1.2) mg/dl Est Cr Clr Drug Dosing 157.1 ml/min Est GFR ( Amer) 149.4 Est GFR (Non-Af Amer) 128.9 BUN/Creatinine Ratio 3.9 L (10-20) Glucose 103 H (70-99) mg/dl Calcium 9.6 (8.5-10.1) mg/dl Total Bilirubin 2.6 H (0.2-1) mg/dl AST 31 (15-37) U/L ALT 19 (12-78) U/L Alkaline Phosphatase 87 (45-117) U/L Total Protein 8.2 (6.4-8.2) gm/dl Albumin 4.0 (3.4-5.0) gm/dl Globulin 4.2 H (2.5-4.0) gm/dl Albumin/Globulin Ratio 1.0 (0.9-2) TSH 1.860 (0.300-4.500) uIu/ml HCG, Quant mIU/ml Salicylates Cancelled Acetaminophen Cancelled Ethyl Alcohol mg/dL (0-3) mg/dl 11/18/19 11/18/19 11/18/19 Range/Units 15:00 15:02 15:02 WBC (4.8-10.8) K/uL RBC (4.2-5.4) M/uL Hgb (12.0-16.0) g/dL Hct (37-47) % MCV (80-100) fL MCH (25-34) pg MCHC (32-36) g/dL RDW Std Deviation (36.4-46.3) fL RDW Coeff of Nando (11.5-14.5) % Plt Count (130-400) K/uL MPV (7.4-10.4) fL Immature Gran % (Auto) % Neut % (Auto) % Lymph % (Auto) % [place] % (Auto) % Eos % (Auto) % Baso % (Auto) % Neut # (Auto) (1.4-6.5) K/uL Lymph # (Auto) (1.2-3.4) K/uL [place] # (Auto) (0.11-0.59) K/uL Eos # (Auto) (0-0.5) K/uL Baso # (Auto) (0-0.2) K/uL Immature Gran # (Auto) (0.00-0.02) K/uL Absolute Nucleated RBC (0-0) K/uL Nucleated RBC % (auto) % Polychromasia Anisocytosis Target Cells PT 12.2 H (9.0-12.0) Seconds INR 1.2 H (0.9-1.1) APTT 24.2 (21.0-31.0) Seconds PTT Ratio 0.9 VBG pH (7.36-7.41) VBG pCO2 (38-50) mmHg VBG pO2 mmHg VBG HCO3 mmol/L VBG O2 Saturation % VBG Base Excess mEq/L Barometric Pressure mm/Hg Sodium (136-145) mmol/L Potassium (3.5-5.1) mmol/L Chloride (98-107) mmol/L Carbon Dioxide (21-32) mmol/L Anion Gap (3-11) BUN (7-18) mg/dl Creatinine (0.6-1.2) mg/dl Est Cr Clr Drug Dosing ml/min Est GFR ( Amer) Est GFR (Non-Af Amer) BUN/Creatinine Ratio (10-20) Glucose (70-99) mg/dl Calcium (8.5-10.1) mg/dl Total Bilirubin (0.2-1) mg/dl AST (15-37) U/L ALT (12-78) U/L Alkaline Phosphatase (45-117) U/L Total Protein (6.4-8.2) gm/dl Albumin (3.4-5.0) gm/dl Globulin (2.5-4.0) gm/dl Albumin/Globulin Ratio (0.9-2) TSH (0.300-4.500) uIu/ml HCG, Quant < 1 mIU/ml Salicylates Acetaminophen Ethyl Alcohol mg/dL < 3.0 (0-3) mg/dl 11/18/19 Range/Units 16:26 WBC (4.8-10.8) K/uL RBC (4.2-5.4) M/uL Hgb (12.0-16.0) g/dL Hct (37-47) % MCV (80-100) fL MCH (25-34) pg MCHC (32-36) g/dL RDW Std Deviation (36.4-46.3) fL RDW Coeff of Nando (11.5-14.5) % Plt Count (130-400) K/uL MPV (7.4-10.4) fL Immature Gran % (Auto) % Neut % (Auto) % Lymph % (Auto) % [place] % (Auto) % Eos % (Auto) % Baso % (Auto) % Neut # (Auto) (1.4-6.5) K/uL Lymph # (Auto) (1.2-3.4) K/uL [place] # (Auto) (0.11-0.59) K/uL Eos # (Auto) (0-0.5) K/uL Baso # (Auto) (0-0.2) K/uL Immature Gran # (Auto) (0.00-0.02) K/uL Absolute Nucleated RBC (0-0) K/uL Nucleated RBC % (auto) % Polychromasia Anisocytosis Target Cells PT (9.0-12.0) Seconds INR (0.9-1.1) APTT (21.0-31.0) Seconds PTT Ratio VBG pH 7.30 L (7.36-7.41) VBG pCO2 55 H (38-50) mmHg VBG pO2 81 mmHg VBG HCO3 27 mmol/L VBG O2 Saturation 92.3 % VBG Base Excess -0.2 mEq/L Barometric Pressure 730.0 mm/Hg Sodium (136-145) mmol/L Potassium (3.5-5.1) mmol/L Chloride (98-107) mmol/L Carbon Dioxide (21-32) mmol/L Anion Gap (3-11) BUN (7-18) mg/dl Creatinine (0.6-1.2) mg/dl Est Cr Clr Drug Dosing ml/min Est GFR ( Amer) Est GFR (Non-Af Amer) BUN/Creatinine Ratio (10-20) Glucose (70-99) mg/dl Calcium (8.5-10.1) mg/dl Total Bilirubin (0.2-1) mg/dl AST (15-37) U/L ALT (12-78) U/L Alkaline Phosphatase (45-117) U/L Total Protein (6.4-8.2) gm/dl Albumin (3.4-5.0) gm/dl Globulin (2.5-4.0) gm/dl Albumin/Globulin Ratio (0.9-2) TSH (0.300-4.500) uIu/ml HCG, Quant mIU/ml Salicylates Acetaminophen Ethyl Alcohol mg/dL (0-3) mg/dl ECG Data Indication: toxicologic Rate (beats per minute): 114 Rhythm: sinus tachycardia Findings: no ST depression and no ST elevation Additional Comments: [place] 160 QRS 76 QT C438. No delta waves [facility] Narrative 1424: The patient was evaluated in room B9. A complete history and physical exam was performed. After initial assessment while in the room the patient tried to take the pulse oximeter which was placed on her for initial vitals and try to strangle herself with it. This had to be wrestled away from the patient by security. Patient was restrained and then given Haldol 5 mg IM, Ativan 2 mg IM and Benadryl 50 mg IM so she would be more sedated and not try to harm herself again. She was placed on one-to-one. Cardiac monitoring: An order was placed for continuous cardiac monitoring. The monitor shows a rate of 110 with sinus tachycardia rhythm Patient medication bottles were brought with her: She has an prescription bottle of oxycodone 5 mg tablets that was filled with 42 tablets on October 20, 2019. This bottle is completely empty. She has a prescription bottle of duloxetine. This was filled on November 08, 2019. There are 24 tablets in the prescription bottle and there are 4 tablets missing from its fill date She has a prescription bottle for tramadol 50 mg. This was filled on August 06, 2019. There are 41 tablets in the bottle and there are 19 tablets missing from its fill date. She has a prescription bottle for clonazepam. This filled in November 08, 2019. The 49 tablets in the bottle and there are 7 tablets missing from its fill date. She has a prescription for folic acid. This was filled on August 13, 2019, there are 149 tablets in the bottle and 31 are missing since its fill date. 1545: Spoke with [facility]. She states the patient should be observed for 6 to 12 hours given her polysubstance overdose. Poison control states to use benzodiazepines for agitation from here on out and to avoid Haldol. 1606: Lab calls and states that the patient is too icteric and they cannot do a Tylenol or salicylate level on this patient. They did state that they could send the labs out to [facility] and we would get the results back in a few days. I did discuss with medical laboratory technicians who spoke with lab and pathology to see if we can get salicylate and tylenol back sooner. Spoke with poison control who asked for a VBG to see if the blood is acidotic from possible salicylate toxicity. It is thought a possible salicylate toxicity is very unlikely as the patient does not have any anion gap acidosis and there bicarb level is within normal limits. I did discuss with Po[facility] Control [facility] Amy that I thought would be in the patient's best interest given her polysubstance overdose to possibly start the patient on NAC since will not get the Tylenol level back on the patient. Amy from the poison center states they will contact the wood model maker. 1613: Received a call from [facility] who states that they can send the salicylate and acetaminophen level down to [facility]. There will be a turnaround time but will be seen sooner than sending the bloodwork [facility]. I explained to Mr. Castrejon that we are discussing with Poison Control Center if the patient should be started on neck or not and will contact him back about sending the lab work down to [facility]. 1622: Spoke with [facility] [place] who did discuss with the wood model maker credit union teller and she is stated that the wood model maker agreed that we should initiate NAC therapy. NAC protocols initiated. I did discuss with her that the lab stated that we could send the blood work down to [facility] to get a a cetaminophen and salicylate level. She stated that if the tylenol level comes back negative after being run in [facility] the NAC can be stopped at any time, however if we do not receive the Tylenol level back in time to continue with the NAC protocol until it is completed. She also recommended that we get an EKG, CMP, and VBG in 4 hours. She states that the Poison Control Center will continue to follow this patient's case. She states the wood model maker stated there is no need to start sodium bicarbonate therapy for possible salicylate ingestion at this time given her negative anion gap. Patient is currently sleeping after receiving the Haldol Ativan and Benadryl. Her oxygen saturation did decrease slightly and the patient was started on 2 L nasal cannula, is thought that this was due to the medications used to sedate her. [facility] hospitalist Dr. Velez will be notified of the admission. 175: Spoke with lab and inform them to send the salicylate and a cinnamon level to [facility] for running on their machines. hydrological technical officer states they will arrange transport of this. Impression & Plan Polysubstance overdose, Suicidal ideation Critical Care Time Critical Care Time: Yes Total Critical Care Time: 116 I have personally spent greater than 116 minutes of critical care time in the direct management of this patient. This includes bedside care, interpretation of diagnostic studies, and testing, discussion with consultants, patient, and family members, and other required patient management activities. This 116 minutes is in excess of all separately billable procedures. Discharge Plan Visit Data Chief Complaint: Overdose (Intentional) Stated Complaint: drug overdose ED Provider: Ramana Almaguer Discharge Problem: Polysubstance overdose, Suicidal ideation Patient Disposition: Admitted As Inpatient Forms Stand Alone Forms: My [facility], Suicide Prevention Resources Prescriptions Prescriptions: No Action clonazepam [Klonopin] 0.5 mg tablet 0.5 mg PO BID RF: 0 lorazepam [Ativan] 1 mg tablet 0.5 mg PO Q6H PRN (Reason: anxiety) Qty: 6 RF: 0 celecoxib 100 mg capsule 100 mg PO BID RF: 0 duloxetine 20 mg capsule,delayed release(DR/EC) 20 mg PO QAM RF: 0 oxycodone 5 mg tablet 5 mg PO Q8H PRN (Reason: Pain, Severe) RF: 0 tramadol 50 mg Tablet 50 mg PO Q12 PRN (Reason: Pain) RF: 0 folic acid 1 mg Tablet 2 mg PO DAILY RF: 0 Referrals Referrals: [facility] [Primary Care Provider] -
--- NOTE | 2019-11-18 17:25 | History & Physical Report ---
Date of Service November 18, 2019 Assessment & Plan (1) Suicide gesture: Patient is a 19-year-old female with past medical history significant for sickle cell anemia, nonepileptic seizures; who presented for intentional overdose of unknown substances questionably Celebrex, tramadol, oxycodone. Intentional overdose: -Uncertain medications consumed, with patient stated medications being Celebrex, tramadol, oxycodone -Poison control contacted indicating need for continued monitoring benzodia zepines should be used for agitation, recommended VBG, EKG, CMP in 4 hours (scheduled for 1999), recommend completion of NAC -Initial Tylenol levels unable to be performed in hospital due to baseline icterus from sickle cell sent to outside facility -INR 1.2 on admission, baseline appears to be approximately 1.2 dating back to 10/26/2018 -VBG demonstrating pH 7.3, PCO2 55, HCO3 27 -Creatinine 0.62 on admission -Bilirubin 2.6 -AST 31 ALT 19 alk phos 87 -Ethyl alcohol < 3.0 -Started on N-acetylcysteine protocol -Repeat CMP, CBC, PTT/PT/INR -Consult psychiatry for evaluation following improvement Sickle cell anemia: -Hold home medications Depression: -Hold home medications -Suicide precautions (2) Nonepileptic episode: (3) Sickle cell anemia: (4) Depression: History of Present Illness Chief Complaint: Overdose Primary Care Provider: [facility] Patient is a 19-year-old female with past medical history significant for sickle cell and nonepileptic seizures; who presented for intentional overdose of unknown substances. Upon presentation to the emergency department patient was reported as screaming "kill me", at that time patient was additionally asking for potassium to be delivered through her IV in order to kill her, and during initial assessment with the nurses attempted to take the cords from around the room to strangle herself. Following this patient was given 5 mg Haldol IM, Ativan 2 mg IM, and Benadryl 50 mg IM. Of the medications that were brought with her and counted by the emergency room staff indicated that oxycodone prescribed filled October 19 were completely empty, duloxetine tablets filled November 07 was missing for tablets, tramadol 50 mg tab prescription filled August 05 was missing 19 tablets, clonazepam prescription filled November 07 was missing 7 tablets, folic acid filled August 12 missing 31 tablets. Of note Tylenol and salicylate levels were unable to be run in our facility initially as patient was deemed to be too icteric for the labs to be run in patients were sent to [facility] in [place], expected results in back in a few days. Poison control contacted indicating continue monitoring with next therapy unless acetaminophen level resulted as normal, recommended VBG, EKG, CMP. Upon questioning by this provider, patient indicated that she took Celebrex, tramadol, and oxycodone of in an uncertain amount "took whatever was left of all 3." Endorses that this was an attempt to kill herself. Allergies Allergy/AdvReac Type Severity Reaction Status Date / Time No Known Allergies Allergy Verified 10/24/19 20:51 Home Medications Home Medications Medication Instructions Recorded Confirmed Type clonazepam [Klonopin] 0.5 mg PO BID 10/22/19 11/18/19 History lorazepam [Ativan] 0.5 mg PO Q6H PRN #6 tab 11/14/19 11/18/19 Rx celecoxib 100 mg PO BID 11/18/19 11/18/19 History duloxetine 20 mg PO QAM 11/18/19 11/18/19 History folic acid 2 mg PO DAILY 11/18/19 11/18/19 History oxycodone 5 mg PO Q8H PRN 11/18/19 11/18/19 History tramadol 50 mg PO Q12 PRN 11/18/19 11/18/19 History Past Med/Surg History Medical History Borderline personality disorder Pneumonia Seizure-like activity Sickle cell anemia Sickle cell crisis Surgical History No pertinent past surgical history Family History Mother Hypertension Father Ulcer Other Family history non-contributory Social History Smoking Status: Unknown if ever smoked Second Hand Exposure: No; Hx Alcohol Use: Yes Alcohol type: beer, wine and hard liquor Hx Substance Use: No Preferred Language: Spanish Communication Ability: Effective 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 [employer] Handling Required: No Beliefs That Will Affect Care: None marital status: Single Current Living Situation: Other Current Living Situation Comment: Roommates 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 current occupation: [employer] major Feels Safe at Home: Declines to Answer Assistive Devices: None Review of Systems Review of Systems: Unobtainable due to reduced consciousness Physical Exam Constitutional: WD/WN, vitals as above Eyes: PERRL, EOM intact bilaterally and reactive pupils ENMT: external ear and nose normal, oropharynx normal Respiratory: normal respiratory effort, lungs clear to auscultation Cardiovascular: Rate/Rhythm: regular rate and regular rhythm Heart Sounds: + murmur (systolic ejection murmur over LLSB); no gallop and no cardiac rub Gastrointestinal (Abdomen): normal bowel sounds, soft, nontender, no hepatosplenomegaly Musculoskeletal: no cyanosis or clubbing, extremities motor strength 5/5 Skin: Numerous abrasions/excoriations over abdomen arms legs and neck, appearing following patient continuing to scratch at pruritus Neurologic: patellar DTR's 2+ bilat, sensation intact and PERRL, EOMI, accommodation nl, no face palsy, no dysarthria Psychiatric: Arousable, but sedate, quickly falling asleep during conversations Results & Data Results & Data ([facility]) Vital Signs (Past 12 Hours) Vital Signs Temp Pulse Resp BP Pulse Ox 11/18/19 16:00 36.7 C 11/18/19 14:45 120 H 24 151/85 H 94 Laboratory Results 11/18/19 11/18/19 11/18/19 Range/Units 16:26 15:02 15:02 WBC (4.8-10.8) K/uL RBC (4.2-5.4) M/uL Hgb (12.0-16.0) g/dL Hct (37-47) % MCV (80-100) fL MCH (25-34) pg MCHC (32-36) g/dL RDW Std Deviation (36.4-46.3) fL RDW Coeff of Nando (11.5-14.5) % Plt Count (130-400) K/uL MPV (7.4-10.4) fL Immature Gran % (Auto) % Neut % (Auto) % Lymph % (Auto) % [place] % (Auto) % Eos % (Auto) % Baso % (Auto) % Neut # (Auto) (1.4-6.5) K/uL Lymph # (Auto) (1.2-3.4) K/uL [place] # (Auto) (0.11-0.59) K/uL Eos # (Auto) (0-0.5) K/uL Baso # (Auto) (0-0.2) K/uL Immature Gran # (Auto) (0.00-0.02) K/uL Absolute Nucleated RBC (0-0) K/uL Nucleated RBC % (auto) % Polychromasia Anisocytosis Target Cells PT 12.2 H (9.0-12.0) Seconds INR 1.2 H (0.9-1.1) APTT 24.2 (21.0-31.0) Seconds PTT Ratio 0.9 VBG pH 7.30 L (7.36-7.41) VBG pCO2 55 H (38-50) mmHg VBG pO2 81 mmHg VBG HCO3 27 mmol/L VBG O2 Saturation 92.3 % VBG Base Excess -0.2 mEq/L Barometric Pressure 730.0 mm/Hg Sodium (136-145) mmol/L Potassium (3.5-5.1) mmol/L Chloride (98-107) mmol/L Carbon Dioxide (21-32) mmol/L Anion Gap (3-11) BUN (7-18) mg/dl Creatinine (0.6-1.2) mg/dl Est Cr Clr Drug Dosing ml/min Est GFR ( Amer) Est GFR (Non-Af Amer) BUN/Creatinine Ratio (10-20) Glucose (70-99) mg/dl Calcium (8.5-10.1) mg/dl Total Bilirubin (0.2-1) mg/dl AST (15-37) U/L ALT (12-78) U/L Alkaline Phosphatase (45-117) U/L Total Protein (6.4-8.2) gm/dl Albumin (3.4-5.0) gm/dl Globulin (2.5-4.0) gm/dl Albumin/Globulin Ratio (0.9-2) TSH (0.300-4.500) uIu/ml HCG, Quant < 1 mIU/ml Salicylates Acetaminophen Ethyl Alcohol mg/dL (0-3) mg/dl Miscellaneous Test 11/18/19 11/18/19 11/18/19 Range/Units 15:00 15:00 15:00 WBC (4.8-10.8) K/uL RBC (4.2-5.4) M/uL Hgb (12.0-16.0) g/dL Hct (37-47) % MCV (80-100) fL MCH (25-34) pg MCHC (32-36) g/dL RDW Std Deviation (36.4-46.3) fL RDW Coeff of Nando (11.5-14.5) % Plt Count (130-400) K/uL MPV (7.4-10.4) fL Immature Gran % (Auto) % Neut % (Auto) % Lymph % (Auto) % [place] % (Auto) % Eos % (Auto) % Baso % (Auto) % Neut # (Auto) (1.4-6.5) K/uL Lymph # (Auto) (1.2-3.4) K/uL [place] # (Auto) (0.11-0.59) K/uL Eos # (Auto) (0-0.5) K/uL Baso # (Auto) (0-0.2) K/uL Immature Gran # (Auto) (0.00-0.02) K/uL Absolute Nucleated RBC (0-0) K/uL Nucleated RBC % (auto) % Polychromasia Anisocytosis Target Cells PT (9.0-12.0) Seconds INR (0.9-1.1) APTT (21.0-31.0) Seconds PTT Ratio VBG pH (7.36-7.41) VBG pCO2 (38-50) mmHg VBG pO2 mmHg VBG HCO3 mmol/L VBG O2 Saturation % VBG Base Excess mEq/L Barometric Pressure mm/Hg Sodium (136-145) mmol/L Potassium (3.5-5.1) mmol/L Chloride (98-107) mmol/L Carbon Dioxide (21-32) mmol/L Anion Gap (3-11) BUN (7-18) mg/dl Creatinine (0.6-1.2) mg/dl Est Cr Clr Drug Dosing ml/min Est GFR ( Amer) Est GFR (Non-Af Amer) BUN/Creatinine Ratio (10-20) Glucose (70-99) mg/dl Calcium (8.5-10.1) mg/dl Total Bilirubin (0.2-1) mg/dl AST (15-37) U/L ALT (12-78) U/L Alkaline Phosphatase (45-117) U/L Total Protein (6.4-8.2) gm/dl Albumin (3.4-5.0) gm/dl Globulin (2.5-4.0) gm/dl Albumin/Globulin Ratio (0.9-2) TSH (0.300-4.500) uIu/ml HCG, Quant mIU/ml Salicylates Cancelled Acetaminophen Cancelled Ethyl Alcohol mg/dL < 3.0 (0-3) mg/dl Miscellaneous Test Cancelled 11/18/19 11/18/19 Range/Units 15:00 15:00 WBC 7.39 (4.8-10.8) K/uL RBC 2.48 L (4.2-5.4) M/uL Hgb 8.9 L (12.0-16.0) g/dL Hct 25.0 L (37-47) % MCV 100.8 H (80-100) fL MCH 35.9 H (25-34) pg MCHC 35.6 (32-36) g/dL RDW Std Deviation 77.7 H (36.4-46.3) fL RDW Coeff of Nando 21.6 H (11.5-14.5) % Plt Count 352 (130-400) K/uL MPV 8.9 (7.4-10.4) fL Immature Gran % (Auto) 0.3 % Neut % (Auto) 55.8 % Lymph % (Auto) 35.6 % [place] % (Auto) 6.6 % Eos % (Auto) 1.4 % Baso % (Auto) 0.3 % Neut # (Auto) 4.13 (1.4-6.5) K/uL Lymph # (Auto) 2.63 (1.2-3.4) K/uL [place] # (Auto) 0.49 (0.11-0.59) K/uL Eos # (Auto) 0.10 (0-0.5) K/uL Baso # (Auto) 0.02 (0-0.2) K/uL Immature Gran # (Auto) 0.02 (0.00-0.02) K/uL Absolute Nucleated RBC 0.10 H (0-0) K/uL Nucleated RBC % (auto) 1.3 % Polychromasia 1+ Anisocytosis Present Target Cells 1+ PT (9.0-12.0) Seconds INR (0.9-1.1) APTT (21.0-31.0) Seconds PTT Ratio VBG pH (7.36-7.41) VBG pCO2 (38-50) mmHg VBG pO2 mmHg VBG HCO3 mmol/L VBG O2 Saturation % VBG Base Excess mEq/L Barometric Pressure mm/Hg Sodium 140 (136-145) mmol/L Potassium 3.2 L (3.5-5.1) mmol/L Chloride 108 H (98-107) mmol/L Carbon Dioxide 27 (21-32) mmol/L Anion Gap 5.0 (3-11) BUN 2 L (7-18) mg/dl Creatinine 0.62 (0.6-1.2) mg/dl Est Cr Clr Drug Dosing 157.1 ml/min Est GFR ( Amer) 149.4 Est GFR (Non-Af Amer) 128.9 BUN/Creatinine Ratio 3.9 L (10-20) Glucose 103 H (70-99) mg/dl Calcium 9.6 (8.5-10.1) mg/dl Total Bilirubin 2.6 H (0.2-1) mg/dl AST 31 (15-37) U/L ALT 19 (12-78) U/L Alkaline Phosphatase 87 (45-117) U/L Total Protein 8.2 (6.4-8.2) gm/dl Albumin 4.0 (3.4-5.0) gm/dl Globulin 4.2 H (2.5-4.0) gm/dl Albumin/Globulin Ratio 1.0 (0.9-2) TSH 1.860 (0.300-4.500) uIu/ml HCG, Quant mIU/ml Salicylates Acetaminophen Ethyl Alcohol mg/dL (0-3) mg/dl Miscellaneous Test Medications Administered Current Inpatient Medications Acetylcysteine 12,140 mg/ (Dextrose) 260.7 mls @ 200 mls/hr IV ONCE ONE; Protocol Stop: 11/18/19 17:41 Last Admin: 11/18/19 16:48 Dose: 200 mls/hr Documented by: Acetylcysteine 4,050 mg/ (Dextrose) 520.25 mls @ 125 mls/hr IV ONCE ONE; Protocol Stop: 11/18/19 20:32 Acetylcysteine 8,090 mg/ (Dextrose) 1,040.45 mls @ 62.5 mls/hr IV ONCE ONE; Protocol Stop: 11/19/19 09:01 Supervising Physician Co-Signing Physician Notes I personally examined the patient and verified all amaro points of history and exam, discussed case, and agree with decision making with Dr Thompson. no HPI or ROS vitals noted. sedated, nad. heent nc at mmm. breathing unlabored with faint upper airway squeaking but no lung adventitious sounds. somewhat difficult exam due to positioning and effort but good air entry heard. no accessory muscles no belly breathing no pauses no tachypnea. no focal neuro deficits QT ok polysubstance OD -supportive care -ABG to ensure no hypercapnea given depth of sedation; continuous pulse ox and CO2 NC -labs as above -1:1 sitter -psych consult otherwise as above Resident Activity Tracking Resident Involvement: Resident Care Provided Care Provided: Adult Hospital Medicine (1) Sickle cell anemia Sickle-cell associated disorders: without crisis Qualified Code(s): D57.1 - Sickle-cell disease without crisis (2) Suicide gesture Encounter type: initial encounter Qualified Code(s): X83.8XXA - Intentional self-harm by other specified means, initial encounter (3) Depression Active/Remission status: currently active Depression Type: major depressive disorder Major depression episode severity: severe Major depression recurrence: recurrent Psychotic features: without psychotic features Qualified Code(s): F33.2 - Major depressive disorder, recurrent severe without psychotic features
--- NOTE | 2019-11-18 19:15 | Billing Data ---
Date of Service November 18, 2019 Coding Level of Care Code 26152 OBS Care - Level 3
[2019-11-18] MEDS ORDERED: NALOXONE HCL 0.4 MG/1 ML VIAL/CARP IV PRN (19:16)
[2019-11-18 20:12] LABS: Base Excess ABG 0.6 mEq/L (-9-1.8); HCO3 ABG 27 mmol/L (19-24); Oxygen Saturation ABG 97.9 % (90-95); PCO2 ABG 57 mmHg (35-46); PO2 ABG 128 mmHg (80-95)
[2019-11-18 20:13] LABS: Allen Test POS (Pos)
[2019-11-18 20:28] LABS: Albumin Level 3.5 gm/dl (3.4-5.0); BUN Creatinine Ratio 5.4 (10-20); Calcium 9.1 mg/dl (8.5-10.1); Creatinine Clr Calc Pharmacy 137.4 ml/min; Est GFR (African American) 148.6; Est GFR (Non-African American) 128.2
[2019-11-18 20:30] LABS: Albumin Globulin Ratio 0.8 (0.9-2); Bilirubin,Total 2.5 mg/dl (0.2-1); Globulin 4.1 gm/dl (2.5-4.0); Total Protein 7.6 gm/dl (6.4-8.2)
[2019-11-18] MEDS ORDERED: STAT IV STA (20:30)
--- NOTE | 2019-11-18 20:56 | XRay Report ---
XR chest 1V portable HISTORY: Unconscious. Overdose. COMPARISON: Chest 10/24/2019. FINDINGS: There are low lung volumes. The cardiac silhouette remains mildly enlarged. No pleural effu sions. No pneumothorax. No focal lung consolidations to suggest pneumonia. No evidence for pulmonary edema. IMPRESSION: Stable mild cardiomegaly. ACT 112: Negative or not required by law. Electronically signed by: Cortes Fletcher M.D. 11/18/2019 8:55 PM
[2019-11-18] MEDS ORDERED: SODIUM BICARBONATE 8.4% 100 MEQ in DEXTROSE 5% 1,000 ML IV SCH (21:00)
[2019-11-18 21:32] LABS: Base Excess ABG 0.4 mEq/L (-9-1.8); HCO3 ABG 27 mmol/L (19-24); Oxygen Saturation ABG 97.7 % (90-95); PCO2 ABG 55 mmHg (35-46); PO2 ABG 127 mmHg (80-95); pH ABG 7.31 (7.35-7.45)
[2019-11-18 21:35] LABS: Allen Test POS (Pos)
[2019-11-18 22:39] LABS: Base Excess ABG 1.3 mEq/L (-9-1.8); HCO3 ABG 27 mmol/L (19-24); Oxygen Saturation ABG 98.2 % (90-95); PCO2 ABG 51 mmHg (35-46); PO2 ABG 130 mmHg (80-95); pH ABG 7.34 (7.35-7.45)
[2019-11-18 22:45] LABS: Allen Test POS (Pos)
[2019-11-18 23:27] LABS: Appearance Urine Cloudy (Clear); Bacteria Urine Automated Negative (Negative); Bilirubin Urine Negative (Negative); Blood Urine Negative (Negative); Color Urine Orange; Glucose Urine UA Negative (Negative); Ketones Urine 1+ (Negative); Leukocyte Esterase Urine Negative (Negative); Nitrite Urine Negative (Negative); Protein Urine Negative (Negative); RBC Urine Automated 0-4 /hpf (0-4); Urobilinogen Urine Negative (Negative); pH Urine 5.5 (4.5-7.5)
[2019-11-18 23:45] LABS: Amphetamines+Metham, Urine Neg (Neg); Barbiturates, Urine Neg (Neg); Benzodiazepine, Urine Neg (Neg); Cocaine, Urine Neg (Neg); MDMA (Ecstacy), Urine Neg (Neg); Methadone, Urine Neg (Neg); Opiate, Urine Pos (Neg); Phencyclidine, Urine Neg (Neg)
[2019-11-19 07:13] LABS: Dohle Bodies 1+; Ovalocytes 1+
[2019-11-19 07:29] LABS: Basophils # (auto) 0.01 K/uL (0-0.2); Basophils % (auto) 0.1 %; Eosinophils # (auto) 0.05 K/uL (0-0.5); Eosinophils % (auto) 0.7 %; Hematocrit (blood only) 23.9 % (37-47); Hemoglobin 8.6 g/dL (12.0-16.0); Immature Granulocytes # (auto) 0.01 K/uL (0.00-0.02); Immature Granulocytes % (auto) 0.1 %; Lymphocytes # (auto) 1.98 K/uL (1.2-3.4); Lymphocytes % (auto) 27.3 %; Mean Corpuscular Hemoglobin 36.4 pg (25-34); Mean Corpuscular Volume 101.3 fL (80-100); Mean Platelet Volume 8.9 fL (7.4-10.4); Monocytes # (auto) 0.41 K/uL (0.11-0.59); Monocytes % (auto) 5.7 %; Neutrophils # (auto) 4.78 K/uL (1.4-6.5); Neutrophils % (auto) 66.1 %; Nucleated RBC # (auto) 0.06 K/uL (0-0); Nucleated RBC % (auto) 0.9 %; Platelet Count 363 K/uL (130-400); RDW Coefficient of Variation 20.9 % (11.5-14.5); RDW Standard Deviation 76.2 fL (36.4-46.3); Red Blood Count 2.36 M/uL (4.2-5.4); White Blood Count 7.24 K/uL (4.8-10.8)
[2019-11-19 07:41] LABS: INR 1.2 (0.9-1.1); Prothrombin Time 12.5 Seconds (9.0-12.0)
[2019-11-19 08:05] LABS: Blood Urea Nitrogen 2 mg/dl (7-18); Carbon Dioxide 27 mmol/L (21-32); Chloride 106 mmol/L (98-107); Est GFR (African American) > 150.0; Est GFR (Non-African American) 138.4; Potassium 3.2 mmol/L (3.5-5.1); Sodium 141 mmol/L (136-145)
[2019-11-19 08:06] LABS: Alanine Aminotransferase 17 U/L (12-78); Albumin Level 3.5 gm/dl (3.4-5.0); Aspartate Aminotransferase 24 U/L (15-37); BUN Creatinine Ratio 4.6 (10-20); Calcium 9.3 mg/dl (8.5-10.1); Creatinine Clr Calc Pharmacy 173.1 ml/min; Glucose 111 mg/dl (70-99)
[2019-11-19 08:08] LABS: Albumin Globulin Ratio 0.9 (0.9-2); Alkaline Phosphatase 68 U/L (45-117); Bilirubin,Total 2.4 mg/dl (0.2-1); Globulin 3.8 gm/dl (2.5-4.0); Total Protein 7.3 gm/dl (6.4-8.2)
[2019-11-19 08:25] LABS: Anisocytosis Present; Basophilic Stippling 1+; Howell-Jolly Bodies 1+; Ovalocytes 1+; Schistocytes 1+; Target Cells 1+
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
--- NOTE | 2019-11-19 15:33 | Hospitalist Progress Note ---
Date of Service November 19, 2019 Assessment & Plan (1) Suicide gesture: Patient is a 19-year-old female with past medical history significant for sickle cell anemia, nonepileptic seizures; who presented for intentional overdose of unknown substances questionably Celebrex, tramadol, oxycodone. Intentional overdose: - Uncertain medications consumed, with patient stated medications being Celebrex, tramadol, oxycodone - Poison control contacted indicating need for continued monitoring benzodiazepines should be used for agitation, recommended VBG, EKG, CMP in 4 hours (scheduled for 1999), recommend completion of NAC - Initial Tylenol levels unable to be performed in hospital due to baseline icterus from sickle cell sent to outside facility - INR 1.2 on admission, baseline appears to be approximately 1.2 dating back to 10/26/2018 - Stopped N-acetylcysteine protocol overnight based on recommendation of Poison control - Consult psychiatry: signed 302, advised patient is to go to inpatient psych after medically cleared Sickle cell anemia: -Hold home medications Depression: -Hold home medications -Suicide precautions (2) Nonepileptic episode: (3) Sickle cell anemia: (4) Depression: Admission and Anticipated Discharge Date Admission Date: November 18, 2019 Supervising Physician Co-Signing Physician Notes I personally examined the patient and verified all amaro points of history and exam, discussed case, and agree with decision making with Dr Thompson. dizzy, thinsk bipap helped vitals noted. sedated, nad. heent nc at mmm. breathing unlabored on bipap. no focal neuro deficits. conversive polysubstance OD -supportive care -improving -1:1 sitter -anticipate inpatient psych otherwise as above Subjective Overnight on the advise of poison control, NAC was stopped. Patient endorses that she continues to feel fine, without pain or nausea or vomiting. Does endorse intense need to itch throughout the day. Started on BiPAP overnight for maintenance of saturations as patient continued to have desaturations while asleep Review of Systems Review of Systems: All systems reviewed & are unremarkable except as noted in Subjective Physical Exam Constitutional: WD/WN, vitals as above Eyes: PERRL, EOM intact bilaterally and reactive pupils ENMT: external ear and nose normal, oropharynx normal Respiratory: normal respiratory effort, lungs clear to auscultation Cardiovascular: Rate/Rhythm: regular rate and regular rhythm Heart Sounds: + murmur (systolic ejection murmur over LLSB); no gallop and no cardiac rub Gastrointestinal (Abdomen): normal bowel sounds, soft, nontender, no hepatosplenomegaly Musculoskeletal: no cyanosis or clubbing, extremities motor strength 5/5 Neurologic: patellar DTR's 2+ bilat, sensation intact and PERRL, EOMI, accommodation nl, no face palsy, no dysarthria Results & Data Results & Data ([facility]) Vital Signs (Past 12 Hours) Vital Signs Temp Pulse Pulse Resp BP Pulse Ox 11/19/19 11:33 36.4 C L 69 18 102/64 99 11/19/19 07:44 36.5 C 73 20 111/69 100 11/19/19 07:14 64 19 100 11/19/19 04:04 36.2 C L 86 18 110/68 100 Laboratory Results 11/19/19 11/19/19 11/19/19 Range/Units 07:08 07:08 07:08 WBC 7.24 (4.8-10.8) K/uL RBC 2.36 L (4.2-5.4) M/uL Hgb 8.6 L (12.0-16.0) g/dL Hct 23.9 L (37-47) % MCV 101.3 H (80-100) fL MCH 36.4 H (25-34) pg MCHC 36.0 (32-36) g/dL RDW Std Deviation 76.2 H (36.4-46.3) fL RDW Coeff of Nando 20.9 H (11.5-14.5) % Plt Count 363 (130-400) K/uL MPV 8.9 (7.4-10.4) fL Immature Gran % (Auto) 0.1 % Neut % (Auto) 66.1 % Lymph % (Auto) 27.3 % [place] % (Auto) 5.7 % Eos % (Auto) 0.7 % Baso % (Auto) 0.1 % Neut # (Auto) 4.78 (1.4-6.5) K/uL Lymph # (Auto) 1.98 (1.2-3.4) K/uL [place] # (Auto) 0.41 (0.11-0.59) K/uL Eos # (Auto) 0.05 (0-0.5) K/uL Baso # (Auto) 0.01 (0-0.2) K/uL Immature Gran # (Auto) 0.01 (0.00-0.02) K/uL Absolute Nucleated RBC 0.06 H (0-0) K/uL Nucleated RBC % (auto) 0.9 % Dohle Bodies Basophilic Stippling 1+ Anisocytosis Present Target Cells 1+ Ovalocytes 1+ Booth-Cowles Bodies 1+ Schistocytes 1+ PT 12.5 H (9.0-12.0) Seconds INR 1.2 H (0.9-1.1) ABG pH (7.35-7.45) ABG pCO2 (35-46) mmHg ABG pO2 (80-95) mmHg ABG HCO3 (19-24) mmol/L ABG O2 Saturation (90-95) % ABG Base Excess (-9-1.8) mEq/L Daniel Test (Pos) Barometric Pressure mm/Hg Oxygen Given Sodium 141 (136-145) mmol/L Potassium 3.2 L D (3.5-5.1) mmol/L Chloride 106 (98-107) mmol/L Carbon Dioxide 27 (21-32) mmol/L Anion Gap 8.0 (3-11) BUN 2 L (7-18) mg/dl Creatinine 0.50 L (0.6-1.2) mg/dl Est Cr Clr Drug Dosing 173.1 ml/min Est GFR ( Amer) > 150.0 Est GFR (Non-Af Amer) 138.4 BUN/Creatinine Ratio 4.6 L (10-20) Glucose 111 H (70-99) mg/dl Calcium 9.3 (8.5-10.1) mg/dl Total Bilirubin 2.4 H (0.2-1) mg/dl AST 24 (15-37) U/L ALT 17 (12-78) U/L Alkaline Phosphatase 68 (45-117) U/L Total Protein 7.3 (6.4-8.2) gm/dl Albumin 3.5 (3.4-5.0) gm/dl Globulin 3.8 (2.5-4.0) gm/dl Albumin/Globulin Ratio 0.9 (0.9-2) Urine Color Urine Appearance (Clear) Urine pH (4.5-7.5) Ur Specific [place] (1.000-1.030) Urine Protein (Negative) Urine Glucose (UA) (Negative) Urine Ketones (Negative) Urine Blood (Negative) Urine Nitrite (Negative) Urine Bilirubin (Negative) Urine Urobilinogen (Negative) Ur Leukocyte Esterase (Negative) Urine WBC (Auto) (0-5) /hpf Urine RBC (Auto) (0-4) /hpf U Hyaline Cast (Auto) (0-5) /lpf U Epithel Cells (Auto) (0-5) /lpf Urine Bacteria (Auto) (Negative) POC Ur Test Urine Opiates Screen (Neg) U Codeine Confrm GC/MS Ur Morphine (GC/MS) Ur Hydrocodone (GC/MS) Ur Norhydrocodone Ur Noroxycodone Urine Oxycodone (GC/MS) U Oxymorphone GC/MS Ur Methadone, Qual (Neg) Ur Hydromorphone (GC/MS) Acetaminophen Urine Barbiturates (Neg) Ur Phencyclidine (PCP) (Neg) U Amphetamin/Meth Scrn (Neg) MDMA (Ecstasy) Screen (Neg) U Benzodiazepines Scrn (Neg) Ur Cocaine Metabolite (Neg) U Marijuana (THC) Screen (Neg) Drug Screen Comment Ref Lab Test Result 11/18/19 11/18/19 11/18/19 Range/Units Unknown Unknown Unknown WBC (4.8-10.8) K/uL RBC (4.2-5.4) M/uL Hgb (12.0-16.0) g/dL Hct (37-47) % MCV (80-100) fL MCH (25-34) pg MCHC (32-36) g/dL RDW Std Deviation (36.4-46.3) fL RDW Coeff of Nando (11.5-14.5) % Plt Count (130-400) K/uL MPV (7.4-10.4) fL Immature Gran % (Auto) % Neut % (Auto) % Lymph % (Auto) % [place] % (Auto) % Eos % (Auto) % Baso % (Auto) % Neut # (Auto) (1.4-6.5) K/uL Lymph # (Auto) (1.2-3.4) K/uL [place] # (Auto) (0.11-0.59) K/uL Eos # (Auto) (0-0.5) K/uL Baso # (Auto) (0-0.2) K/uL Immature Gran # (Auto) (0.00-0.02) K/uL Absolute Nucleated RBC (0-0) K/uL Nucleated RBC % (auto) % Dohle Bodies Basophilic Stippling Anisocytosis Target Cells Ovalocytes Booth-Cowles Bodies Schistocytes PT (9.0-12.0) Seconds INR (0.9-1.1) ABG pH (7.35-7.45) ABG pCO2 (35-46) mmHg ABG pO2 (80-95) mmHg ABG HCO3 (19-24) mmol/L ABG O2 Saturation (90-95) % ABG Base Excess (-9-1.8) mEq/L Daniel Test (Pos) Barometric Pressure mm/Hg Oxygen Given Sodium (136-145) mmol/L Potassium (3.5-5.1) mmol/L Chloride (98-107) mmol/L Carbon Dioxide (21-32) mmol/L Anion Gap (3-11) BUN (7-18) mg/dl Creatinine (0.6-1.2) mg/dl Est Cr Clr Drug Dosing ml/min Est GFR ( Amer) Est GFR (Non-Af Amer) BUN/Creatinine Ratio (10-20) Glucose (70-99) mg/dl Calcium (8.5-10.1) mg/dl Total Bilirubin (0.2-1) mg/dl AST (15-37) U/L ALT (12-78) U/L Alkaline Phosphatase (45-117) U/L Total Protein (6.4-8.2) gm/dl Albumin (3.4-5.0) gm/dl Globulin (2.5-4.0) gm/dl Albumin/Globulin Ratio (0.9-2) Urine Color Urine Appearance (Clear) Urine pH (4.5-7.5) Ur Specific [place] (1.000-1.030) Urine Protein (Negative) Urine Glucose (UA) (Negative) Urine Ketones (Negative) Urine Blood (Negative) Urine Nitrite (Negative) Urine Bilirubin (Negative) Urine Urobilinogen (Negative) Ur Leukocyte Esterase (Negative) Urine WBC (Auto) (0-5) /hpf Urine RBC (Auto) (0-4) /hpf U Hyaline Cast (Auto) (0-5) /lpf U Epithel Cells (Auto) (0-5) /lpf Urine Bacteria (Auto) (Negative) POC Ur Test Pending Urine Opiates Screen Pos H (Neg) U Codeine Confrm GC/MS Pending Ur Morphine (GC/MS) Pending Ur Hydrocodone (GC/MS) Pending Ur Norhydrocodone Pending Ur Noroxycodone Pending Urine Oxycodone (GC/MS) Pending U Oxymorphone GC/MS Pending Ur Methadone, Qual Neg (Neg) Ur Hydromorphone (GC/MS) Pending Acetaminophen Urine Barbiturates Neg (Neg) Ur Phencyclidine (PCP) Neg (Neg) U Amphetamin/Meth Scrn Neg (Neg) MDMA (Ecstasy) Screen Neg (Neg) U Benzodiazepines Scrn Neg (Neg) Ur Cocaine Metabolite Neg (Neg) U Marijuana (THC) Screen Neg (Neg) Drug Screen Comment Pending Ref Lab Test Result 11/18/19 11/18/19 11/18/19 Range/Units Unknown 22:25 21:19 WBC (4.8-10.8) K/uL RBC (4.2-5.4) M/uL Hgb (12.0-16.0) g/dL Hct (37-47) % MCV (80-100) fL MCH (25-34) pg MCHC (32-36) g/dL RDW Std Deviation (36.4-46.3) fL RDW Coeff of Nando (11.5-14.5) % Plt Count (130-400) K/uL MPV (7.4-10.4) fL Immature Gran % (Auto) % Neut % (Auto) % Lymph % (Auto) % [place] % (Auto) % Eos % (Auto) % Baso % (Auto) % Neut # (Auto) (1.4-6.5) K/uL Lymph # (Auto) (1.2-3.4) K/uL [place] # (Auto) (0.11-0.59) K/uL Eos # (Auto) (0-0.5) K/uL Baso # (Auto) (0-0.2) K/uL Immature Gran # (Auto) (0.00-0.02) K/uL Absolute Nucleated RBC (0-0) K/uL Nucleated RBC % (auto) % Dohle Bodies Basophilic Stippling Anisocytosis Target Cells Ovalocytes Booth-Cowles Bodies Schistocytes PT (9.0-12.0) Seconds INR (0.9-1.1) ABG pH 7.34 L 7.31 L (7.35-7.45) ABG pCO2 51 H 55 H (35-46) mmHg ABG pO2 130 H 127 H (80-95) mmHg ABG HCO3 27 H 27 H (19-24) mmol/L ABG O2 Saturation 98.2 H 97.7 H (90-95) % ABG Base Excess 1.3 0.4 (-9-1.8) mEq/L Daniel Test POS POS (Pos) Barometric Pressure 731.2 731.2 mm/Hg Oxygen Given 30% 30% Sodium (136-145) mmol/L Potassium (3.5-5.1) mmol/L Chloride (98-107) mmol/L Carbon Dioxide (21-32) mmol/L Anion Gap (3-11) BUN (7-18) mg/dl Creatinine (0.6-1.2) mg/dl Est Cr Clr Drug Dosing ml/min Est GFR ( Amer) Est GFR (Non-Af Amer) BUN/Creatinine Ratio (10-20) Glucose (70-99) mg/dl Calcium (8.5-10.1) mg/dl Total Bilirubin (0.2-1) mg/dl AST (15-37) U/L ALT (12-78) U/L Alkaline Phosphatase (45-117) U/L Total Protein (6.4-8.2) gm/dl Albumin (3.4-5.0) gm/dl Globulin (2.5-4.0) gm/dl Albumin/Globulin Ratio (0.9-2) Urine Color [place] Urine Appearance Cloudy A (Clear) Urine pH 5.5 (4.5-7.5) Ur Specific [place] 1.010 (1.000-1.030) Urine Protein Negative (Negative) Urine Glucose (UA) Negative (Negative) Urine Ketones 1+ H (Negative) Urine Blood Negative (Negative) Urine Nitrite Negative (Negative) Urine Bilirubin Negative (Negative) Urine Urobilinogen Negative (Negative) Ur Leukocyte Esterase Negative (Negative) Urine WBC (Auto) 1-5 (0-5) /hpf Urine RBC (Auto) 0-4 (0-4) /hpf U Hyaline Cast (Auto) 1-5 (0-5) /lpf U Epithel Cells (Auto) 10-20 H (0-5) /lpf Urine Bacteria (Auto) Negative (Negative) POC Ur Test Urine Opiates Screen (Neg) U Codeine Confrm GC/MS Ur Morphine (GC/MS) Ur Hydrocodone (GC/MS) Ur Norhydrocodone Ur Noroxycodone Urine Oxycodone (GC/MS) U Oxymorphone GC/MS Ur Methadone, Qual (Neg) Ur Hydromorphone (GC/MS) Acetaminophen Urine Barbiturates (Neg) Ur Phencyclidine (PCP) (Neg) U Amphetamin/Meth Scrn (Neg) MDMA (Ecstasy) Screen (Neg) U Benzodiazepines Scrn (Neg) Ur Cocaine Metabolite (Neg) U Marijuana (THC) Screen (Neg) Drug Screen Comment Ref Lab Test Result 11/18/19 11/18/19 11/18/19 Range/Units 19:57 19:57 19:57 WBC (4.8-10.8) K/uL RBC (4.2-5.4) M/uL Hgb (12.0-16.0) g/dL Hct (37-47) % MCV (80-100) fL MCH (25-34) pg MCHC (32-36) g/dL RDW Std Deviation (36.4-46.3) fL RDW Coeff of Nando (11.5-14.5) % Plt Count (130-400) K/uL MPV (7.4-10.4) fL Immature Gran % (Auto) % Neut % (Auto) % Lymph % (Auto) % [place] % (Auto) % Eos % (Auto) % Baso % (Auto) % Neut # (Auto) (1.4-6.5) K/uL Lymph # (Auto) (1.2-3.4) K/uL [place] # (Auto) (0.11-0.59) K/uL Eos # (Auto) (0-0.5) K/uL Baso # (Auto) (0-0.2) K/uL Immature Gran # (Auto) (0.00-0.02) K/uL Absolute Nucleated RBC (0-0) K/uL Nucleated RBC % (auto) % Dohle Bodies Basophilic Stippling Anisocytosis Target Cells Ovalocytes Booth-Cowles Bodies Schistocytes PT (9.0-12.0) Seconds INR (0.9-1.1) ABG pH 7.30 L (7.35-7.45) ABG pCO2 57 H (35-46) mmHg ABG pO2 128 H (80-95) mmHg ABG HCO3 27 H (19-24) mmol/L ABG O2 Saturation 97.9 H (90-95) % ABG Base Excess 0.6 (-9-1.8) mEq/L Daniel Test POS (Pos) Barometric Pressure 730.8 mm/Hg Oxygen Given Oxygen Flow Rate 2 Sodium 144 (136-145) mmol/L Potassium 4.0 D (3.5-5.1) mmol/L Chloride 108 H (98-107) mmol/L Carbon Dioxide 25 (21-32) mmol/L Anion Gap 11.0 (3-11) BUN 3 L (7-18) mg/dl Creatinine 0.63 (0.6-1.2) mg/dl Est Cr Clr Drug Dosing 137.4 ml/min Est GFR ( Amer) 148.6 Est GFR (Non-Af Amer) 128.2 BUN/Creatinine Ratio 5.4 L (10-20) Glucose 126 H (70-99) mg/dl Calcium 9.1 (8.5-10.1) mg/dl Total Bilirubin 2.5 H (0.2-1) mg/dl AST 28 (15-37) U/L ALT 16 (12-78) U/L Alkaline Phosphatase 70 (45-117) U/L Total Protein 7.6 (6.4-8.2) gm/dl Albumin 3.5 (3.4-5.0) gm/dl Globulin 4.1 H (2.5-4.0) gm/dl Albumin/Globulin Ratio 0.8 L (0.9-2) Urine Color Urine Appearance (Clear) Urine pH (4.5-7.5) Ur Specific [place] (1.000-1.030) Urine Protein (Negative) Urine Glucose (UA) (Negative) Urine Ketones (Negative) Urine Blood (Negative) Urine Nitrite (Negative) Urine Bilirubin (Negative) Urine Urobilinogen (Negative) Ur Leukocyte Esterase (Negative) Urine WBC (Auto) (0-5) /hpf Urine RBC (Auto) (0-4) /hpf U Hyaline Cast (Auto) (0-5) /lpf U Epithel Cells (Auto) (0-5) /lpf Urine Bacteria (Auto) (Negative) POC Ur Test Urine Opiates Screen (Neg) U Codeine Confrm GC/MS Ur Morphine (GC/MS) Ur Hydrocodone (GC/MS) Ur Norhydrocodone Ur Noroxycodone Urine Oxycodone (GC/MS) U Oxymorphone GC/MS Ur Methadone, Qual (Neg) Ur Hydromorphone (GC/MS) Acetaminophen Cancelled Urine Barbiturates (Neg) Ur Phencyclidine (PCP) (Neg) U Amphetamin/Meth Scrn (Neg) MDMA (Ecstasy) Screen (Neg) U Benzodiazepines Scrn (Neg) Ur Cocaine Metabolite (Neg) U Marijuana (THC) Screen (Neg) Drug Screen Comment Ref Lab Test Result 11/18/19 11/18/19 Range/Units 15:00 15:00 WBC (4.8-10.8) K/uL RBC (4.2-5.4) M/uL Hgb (12.0-16.0) g/dL Hct (37-47) % MCV (80-100) fL MCH (25-34) pg MCHC (32-36) g/dL RDW Std Deviation (36.4-46.3) fL RDW Coeff of Nando (11.5-14.5) % Plt Count (130-400) K/uL MPV (7.4-10.4) fL Immature Gran % (Auto) % Neut % (Auto) % Lymph % (Auto) % [place] % (Auto) % Eos % (Auto) % Baso % (Auto) % Neut # (Auto) (1.4-6.5) K/uL Lymph # (Auto) (1.2-3.4) K/uL [place] # (Auto) (0.11-0.59) K/uL Eos # (Auto) (0-0.5) K/uL Baso # (Auto) (0-0.2) K/uL Immature Gran # (Auto) (0.00-0.02) K/uL Absolute Nucleated RBC (0-0) K/uL Nucleated RBC % (auto) % Dohle Bodies 1+ Basophilic Stippling Anisocytosis Target Cells Ovalocytes 1+ Booth-Cowles Bodies Schistocytes PT (9.0-12.0) Seconds INR (0.9-1.1) ABG pH (7.35-7.45) ABG pCO2 (35-46) mmHg ABG pO2 (80-95) mmHg ABG HCO3 (19-24) mmol/L ABG O2 Saturation (90-95) % ABG Base Excess (-9-1.8) mEq/L Daniel Test (Pos) Barometric Pressure mm/Hg Oxygen Given Sodium (136-145) mmol/L Potassium (3.5-5.1) mmol/L Chloride (98-107) mmol/L Carbon Dioxide (21-32) mmol/L Anion Gap (3-11) BUN (7-18) mg/dl Creatinine (0.6-1.2) mg/dl Est Cr Clr Drug Dosing ml/min Est GFR ( Amer) Est GFR (Non-Af Amer) BUN/Creatinine Ratio (10-20) Glucose (70-99) mg/dl Calcium (8.5-10.1) mg/dl Total Bilirubin (0.2-1) mg/dl AST (15-37) U/L ALT (12-78) U/L Alkaline Phosphatase (45-117) U/L Total Protein (6.4-8.2) gm/dl Albumin (3.4-5.0) gm/dl Globulin (2.5-4.0) gm/dl Albumin/Globulin Ratio (0.9-2) Urine Color Urine Appearance (Clear) Urine pH (4.5-7.5) Ur Specific [place] (1.000-1.030) Urine Protein (Negative) Urine Glucose (UA) (Negative) Urine Ketones (Negative) Urine Blood (Negative) Urine Nitrite (Negative) Urine Bilirubin (Negative) Urine Urobilinogen (Negative) Ur Leukocyte Esterase (Negative) Urine WBC (Auto) (0-5) /hpf Urine RBC (Auto) (0-4) /hpf U Hyaline Cast (Auto) (0-5) /lpf U Epithel Cells (Auto) (0-5) /lpf Urine Bacteria (Auto) (Negative) POC Ur Test Urine Opiates Screen (Neg) U Codeine Confrm GC/MS Ur Morphine (GC/MS) Ur Hydrocodone (GC/MS) Ur Norhydrocodone Ur Noroxycodone Urine Oxycodone (GC/MS) U Oxymorphone GC/MS Ur Methadone, Qual (Neg) Ur Hydromorphone (GC/MS) Acetaminophen Urine Barbiturates (Neg) Ur Phencyclidine (PCP) (Neg) U Amphetamin/Meth Scrn (Neg) MDMA (Ecstasy) Screen (Neg) U Benzodiazepines Scrn (Neg) Ur Cocaine Metabolite (Neg) U Marijuana (THC) Screen (Neg) Drug Screen Comment Ref Lab Test Result Medications Administered Current Inpatient Medications Naloxone HCl (Naloxone Hcl 0.4 Mg/1 Ml Vial/Carp) 0.4 mg IV PRN PRN PRN Reason: narcotic related sedation Stop: 12/18/19 19:15 Resident Activity Tracking Resident Involvement: Resident Care Provided Care Provided: Adult Hospital Medicine (1) Sickle cell anemia Sickle-cell associated disorders: without crisis Qualified Code(s): D57.1 - Sickle-cell disease without crisis (2) Suicide gesture Encounter type: initial encounter Qualified Code(s): X83.8XXA - Intentional self-harm by other specified means, initial encounter (3) Depression Active/Remission status: currently active Depression Type: major depressive disorder Major depression episode severity: severe Major depression recurrence: recurrent Psychotic features: without psychotic features Qualified Code(s): F33.2 - Major depressive disorder, recurrent severe without psychotic features
--- NOTE | 2019-11-19 17:49 | Billing Data ---
Date of Service November 19, 2019 Coding Level of Care Code 09741 Subseq Hosp Care Lvl 3
--- NOTE | 2019-11-19 22:02 | Electrocardiogram Report ---
Test Reason : Blood Pressure : / mmHG Vent. Rate : 114 BPM Atrial Rate : 114 BPM P-R Int : 160 ms QRS Dur : 076 ms QT Int : 318 ms P-R-T Axes : 051 075 040 degrees QTc Int : 438 ms Sinus tachycardia Left atrial enlargement Nonspecific T wave abnormality Abnormal ECG When compared with ECG of 14-NOV-2019 13:03, RI interval has decreased Confirmed by Pierre Marquez ([id number]) on 11/19/2019 10:02:12 PM Referred By: REFERRED SELF Confirmed By:Pierre Marquez
[2019-11-20 07:10] LABS: Basophils # (auto) 0.02 K/uL (0-0.2); Basophils % (auto) 0.3 %; Eosinophils % (auto) 1.5 %; Hematocrit (blood only) 23.1 % (37-47); Hemoglobin 8.3 g/dL (12.0-16.0); Immature Granulocytes # (auto) 0.03 K/uL (0.00-0.02); Immature Granulocytes % (auto) 0.5 %; Lymphocytes # (auto) 3.05 K/uL (1.2-3.4); Lymphocytes % (auto) 46.4 %; Mean Corpuscular Hemoglobin 36.1 pg (25-34); Mean Corpuscular Hgb Conc 35.9 g/dL (32-36); Mean Corpuscular Volume 100.4 fL (80-100); Mean Platelet Volume 9.4 fL (7.4-10.4); Monocytes % (auto) 7.6 %; Neutrophils # (auto) 2.88 K/uL (1.4-6.5); Neutrophils % (auto) 43.7 %; Nucleated RBC % (auto) 4.5 %; Platelet Count 331 K/uL (130-400); RDW Coefficient of Variation 21.5 % (11.5-14.5); RDW Standard Deviation 76.9 fL (36.4-46.3); White Blood Count 6.58 K/uL (4.8-10.8)
[2019-11-20 07:22] LABS: INR 1.1 (0.9-1.1); Partial Thromboplastin Ratio 0.8; Partial Thromboplastin Time 22.6 Seconds (21.0-31.0)
[2019-11-20 07:39] LABS: Alanine Aminotransferase 22 U/L (12-78); Albumin Level 3.3 gm/dl (3.4-5.0); Aspartate Aminotransferase 30 U/L (15-37); BUN Creatinine Ratio 8.2 (10-20); Blood Urea Nitrogen 4 mg/dl (7-18); Calcium 9.6 mg/dl (8.5-10.1); Carbon Dioxide 28 mmol/L (21-32); Chloride 110 mmol/L (98-107); Creatinine Clr Calc Pharmacy 188.1 ml/min; Est GFR (African American) > 150.0; Est GFR (Non-African American) 142.2; Glucose 80 mg/dl (70-99); Potassium 3.1 mmol/L (3.5-5.1); Sodium 144 mmol/L (136-145)
[2019-11-20 07:40] LABS: Anisocytosis Present; Pappenheimer Bodies 1+; Polychromasia 1+; Sickle Cells 1+; Target Cells 1+
[2019-11-20 07:44] LABS: Albumin Globulin Ratio 0.9 (0.9-2); Alkaline Phosphatase 68 U/L (45-117); Bilirubin,Total 3.4 mg/dl (0.2-1); Globulin 3.7 gm/dl (2.5-4.0)
[2019-11-20] MEDS ORDERED: MoRPHine SULFATE 4 MG/ML 1 ML CARP\\VIAL IV STA (08:31)
[2019-11-20] MEDS ORDERED: MoRPHine SULFATE 4 MG/ML 1 ML CARP\\VIAL IV PRN (09:13)
[2019-11-20] MEDS ORDERED: POTASSIUM CHLORIDE 20 MEQ TABCR PO STA (09:15)
--- NOTE | 2019-11-20 09:44 | Hospitalist Progress Note ---
Date of Service November 20, 2019 Assessment & Plan (1) Suicide gesture: Patient is a 19-year-old female with past medical history significant for sickle cell disease, nonepileptic seizures, depression who presented for intentional overdose of unknown substances questionably Celebrex, tramadol, oxycodone. Now with chest pain typical of her prior vaso-occlusive episodes. Vaso-occlusive chest pain episode in patient with sickle cell disease: -Patient has a history of sickle cell disease and has been admitted several times at several hospitals for acute vaso-occlusive pain episodes. -She follows with hematology Dr. Madrigal at [facility] for her continued treatment. Last seen per [facility] EMR on September 24, 2019. -Patient's baseline hemoglobin is about 9. And last note recommended that if she continues to have symptoms to get CXR and echocardiogram. -CXR performed on admission without signs of acute chest. -Echocardiogram ordered this afternoon. -On becoming alert and oriented reports several week history of intermittent "sickle pain like" chest pain that has become constant over the last several days, despite several doses of oxycodone. -Hemoglobin this admission 8.3, will continue to monitor. -No signs on lab work suggestive of splenic sequestration. -Have started morphine 6 mg IV every 4 hours as needed for pain; will repeat CXR if worsening pain despite pain medication. -IV fluids started; D5 normal saline with 20 M EQ potassium at rate of 150 mL/hr. -Lovenox DVT prophylaxis started. -We will resume patient's hydroxyurea 500 mg 3 times daily, and encouraged her today to continue as such in the outpatient setting to reduce frequency of pain episodes. -Call placed to 's office to discuss patient's current status, suspect will reach him within the next several days. -Repeat CBC, reticulocyte count, CMP ordered for the morning. Intentional overdose: - Patient has stated that the medications that she took in excess at home were Celebrex, tramadol, oxycodone. - INR 1.2 on admission, baseline appears to be approximately 1.2 dating back to 10/26/2018. - Consult psychiatry placed on admit: 302 signed, advised patient is to go to inpatient psych after medically cleared. -Patient has significant concerns that she will be out of school for a long period of time and desires to graduate on time. -Will confer with psychiatry and CM regarding resources for medical leave from school, extensions, etc. - Medically patient is much improved with regard to her overdose status, she is alert and oriented, saturating well on room air, and reports severe constant pain as her stressor causing her suicide attempt. Depression: - Hold home medications at this time. - Continue 1:1. -While patient has a history of depression and is admitted for intentional overdose, she does have future plans (talked about her goals for job searching following graduating college). -It is possible that her history of depression is secondary to frequent acute pain crises, as patient reports today a sense of "hopelessness" over the last several days due to her pain. Code Status: FULL CODE FENGI: normal diet, D5NSS with 20meq KCl @ 150ml/hr DVT ppx: Lovenox Dispo: Telemetry for continued monitoring (2) Nonepileptic episode: (3) Sickle cell anemia: (4) Depression: (5) Vaso-occlusive sickle cell crisis: Admission and Anticipated Discharge Date Admission Date: November 18, 2019 Supervising Physician Co-Signing Physician Notes I personally examined the patient and verified all amaro points of history and exam, discussed case, and agree with decision making with Dr Sarkar. chest pain - feels like what she has with sickle cell occlusion. morphine did h elp though. no significant sob. notse that she hurts all the time with sickel cell and has had multiple episodes of acute pain crises - and while directed questioing yields this, she does endorse at least in part that sickle cell pain/etc may be part of what has led to suicidal ideation/attempt. also notes that she's not always the best at remembering her hydrea vitals noted nad heent nc at mmm breathing unlabored no accessory muscles good effort skin no rashes no pallor or icterus neuro no focal deficits sickle cell crisis - chest pain but fortunately not showing criteria for acute chest syndrome. pain control (morphine, escalate if needed) and IV fluids. follow closely. dr sarkar reached out to her regulatory affairs associate, and i encouraged her that generally when we talk w heme about patients with poorly controlled sickle cell, they generally have a number of options to improve the situation. furthermore, if we work to help find ways to remember her hydrea more often, her current treatment regimen may be more helpful than she is realizing polysubstance OD/suicidality - stable now, OD appears to have passed. breathing stable/etc. under 302. acute anemia - almost certainly related to sickle cell hemolysis lightheaded - anticipate improvement w pain control and fluids dvt proph - lovenox otherwise as above Subjective Patient overnight with some episodes of agitation over fear of missing school due to overdose episode. On talking with her this morning, she reports a sense of hopelessness over the last several days due to worsening of her chest and upper back pain similar to previous acute pain episodes in the past due to her sickle cell disease. This is despite several days of oxycodone, celecoxib, tramadol for this pain. She states that in the moment she felt so hopeless that she did not want to be alive anymore, that she "could not stand it". Today she feels much more alert and herself, but does report that she has this nagging tight chest pain in the center of her chest and also into her back. She also has hip pain but this is chronic for her. No recent fevers or chills that she can recall, no shortness of breath, no abdominal pain, nausea or vomiting. No urinary symptoms. No headaches, but does endorse dizziness today when sitting up from lying down, feels comfortable with regard to her dizziness when lying down. She states that she "does not want people to think that she is taking these medicines for no reason, she is in a lot of pain and wishes she did not have to take the medicine". 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 She admits that over the last several weeks she has not been regimented with taking her hydroxyurea. She follows with Dr. Madrigal at [facility] for hematology. She cannot recall a time when her sickle cell disease was well controlled. Review of Systems Review of Systems: All systems reviewed & are unremarkable except as noted in HPI & below Constitutional: no fever, no chills and no malaise Respiratory: no cough and no dyspnea Cardiovascular: no chest pain, no palpitations and no edema Gastrointestinal: no abdominal pain, no constipation and no diarrhea/loose stools Genitourinary: no dysuria and no hematuria Physical Exam Constitutional: WD/WN, vitals as above Eyes: PERRL, conjunctivae normal, anicteric sclerae ENMT: external ear and nose normal, oropharynx normal Neck: normal visual inspection Respiratory: normal respiratory effort, lungs clear to auscultation Cardiovascular: RRR, no murmur, no edema Gastrointestinal (Abdomen): normal bowel sounds, soft, nontender, no hepatosplenomegaly Musculoskeletal: no cyanosis or clubbing, extremities motor strength 5/5 Skin: no rashes, warm and dry Neurologic: AAOx3, normal speech. PERRLA, EOMI, no nystagmus. Normal visual acuity bilaterally. Bilateral UE, LE, and face without sensory or motor deficits. DTRs normal. II- XII intact bilaterally. No pronator drift. No tremor. No ataxia. Psychiatric: A+Ox3, euthymic affect Results & Data Results & Data ([facility]) Vital Signs (Past 12 Hours) Vital Signs Temp Pulse Resp BP BP Pulse Ox 11/20/19 07:10 36.7 C 66 16 96/61 L 95 11/20/19 03:52 36.5 C 75 16 111/70 93 11/19/19 23:00 36.8 C 91 H 18 97/59 L 96 Resident Activity Tracking Resident Involvement: Resident Care Provided Care Provided: Adult Hospital Medicine (1) Sickle cell anemia Sickle-cell associated disorders: without crisis Qualified Code(s): D57.1 - Sickle-cell disease without crisis (2) Suicide gesture Encounter type: initial encounter Qualified Code(s): X83.8XXA - Intentional self-harm by other specified means, initial encounter (3) Depression Active/Remission status: currently active Depression Type: major depressive disorder Major depression episode severity: severe Major depression recurrence: recurrent Psychotic features: without psychotic features Qualified Code(s): F33.2 - Major depressive disorder, recurrent severe without psychotic features
[2019-11-20] MEDS: D5W AND 1/2NSS + 20MEQ KCL 20 MEQ/1,000 ML BAG IV SCH ×3 (09:56→22:04)
[2019-11-20] MEDS: ENOXAPARIN INJ 40 MG/0.4 ML SYR SQ SCH (09:56)
[2019-11-20] MEDS ORDERED: MoRPHine SULFATE 10 MG/ML CARP/VIAL IV PRN (10:17)
[2019-11-20] MEDS ORDERED: MoRPHine SULFATE 2 MG/ML CARP ONE ×3 (10:32→21:58)
--- NOTE | 2019-11-20 17:23 | XCELERA ---
[id number]
[2019-11-20] MEDS ORDERED: ONDANSETRON INJ 2 MG/ML 2 ML VIAL IV PRN (18:07)
--- NOTE | 2019-11-20 18:27 | Billing Data ---
Date of Service November 20, 2019 Coding Level of Care Code 43676 Subseq Hosp Care Lvl 3
[2019-11-20] MEDS: HYDROXYUREA 500 MG CAP PO SCH (20:41)
[2019-11-20] MEDS ORDERED: MoRPHine SULFATE 4 MG/ML 1 ML CARP\\VIAL ONE (21:58)
[2019-11-20] MEDS ORDERED: LORazepam 2 MG/4 ML VIAL IV STA (23:47)
[2019-11-21] MEDS ORDERED: [UNRECOGNIZED DRUG - OTHER] IV PRN (00:04)
[2019-11-21] MEDS ORDERED: LORazepam 4 MG/8 ML VIAL IV PRN (00:12)
[2019-11-21 00:51] LABS: Codeine Urine NEGATIVE ng/mL (<50); Hydrocodone Urine NEGATIVE ng/mL (<50); Hydromor Urine NEGATIVE ng/mL (<50); Morphine Urine NEGATIVE ng/mL (<50); Norhydrocodone Conf Ur NEGATIVE ng/mL (<50); Noroxycodone Urine >10000 ng/mL (<50); Oxycodone Urine 8930 ng/mL (<50); Oxymorph Urine 2090 ng/mL (<50)
[2019-11-21] MEDS ORDERED: MoRPHine SULFATE 2 MG/ML CARP ONE ×2 (01:57→19:29)
[2019-11-21] MEDS ORDERED: MoRPHine SULFATE 4 MG/ML 1 ML CARP\\VIAL ONE ×2 (01:57→19:29)
[2019-11-21] MEDS: D5W AND 1/2NSS + 20MEQ KCL 20 MEQ/1,000 ML BAG IV SCH ×3 (04:44→17:45)
[2019-11-21 06:42] LABS: Mean Corpuscular Hgb Conc 35.6 g/dL (32-36); Platelet Count 329 K/uL (130-400); Reticulocyte % 15.7 % (0.5-2.0); Reticulocytes # 0.35 10^6/uL (0.02-0.10)
[2019-11-21 07:07] LABS: Hematocrit (blood only) 22.5 % (37-47); Mean Corpuscular Hemoglobin 35.9 pg (25-34); Mean Corpuscular Volume 100.9 fL (80-100); Nucleated RBC # (auto) 1.26 K/uL (0-0); Nucleated RBC % (auto) 18.8 %; RDW Coefficient of Variation 21.5 % (11.5-14.5); RDW Standard Deviation 77.5 fL (36.4-46.3); Red Blood Count 2.23 M/uL (4.2-5.4); White Blood Count 6.71 K/uL (4.8-10.8)
[2019-11-21 07:09] LABS: Anisocytosis Present; Basophils # (auto) 0.02 K/uL (0-0.2); Basophils % (auto) 0.3 %; Eosinophils # (auto) 0.17 K/uL (0-0.5); Eosinophils % (auto) 2.5 %; Lymphocytes # (auto) 4.19 K/uL (1.2-3.4); Lymphocytes % (auto) 62.4 %; Monocytes # (auto) 0.55 K/uL (0.11-0.59); Monocytes % (auto) 8.2 %; Neutrophils # (auto) 1.78 K/uL (1.4-6.5); Neutrophils % (auto) 26.6 %; Pappenheimer Bodies 1+; Polychromasia 1+; Target Cells 1+
[2019-11-21 07:21] LABS: Alanine Aminotransferase 19 U/L (12-78); Albumin Globulin Ratio 0.9 (0.9-2); Albumin Level 3.3 gm/dl (3.4-5.0); Alkaline Phosphatase 73 U/L (45-117); Aspartate Aminotransferase 25 U/L (15-37); BUN Creatinine Ratio 6.5 (10-20); Bilirubin,Total 2.7 mg/dl (0.2-1); Blood Urea Nitrogen 3 mg/dl (7-18); Calcium 8.9 mg/dl (8.5-10.1); Carbon Dioxide 29 mmol/L (21-32); Chloride 111 mmol/L (98-107); Creatinine Clr Calc Pharmacy 184.1 ml/min; Est GFR (African American) > 150.0; Est GFR (Non-African American) 141.2; Globulin 3.6 gm/dl (2.5-4.0); Glucose 93 mg/dl (70-99); Potassium 3.9 mmol/L (3.5-5.1); Sodium 141 mmol/L (136-145); Total Protein 6.9 gm/dl (6.4-8.2)
--- NOTE | 2019-11-21 07:56 | Hospitalist Progress Note ---
Date of Service November 21, 2019 Assessment & Plan (1) Suicide gesture: Patient is a 19-year-old female with past medical history significant for sickle cell disease, nonepileptic seizures, depression who presented for intentional overdose of unknown substances questionably Celebrex, tramadol, oxycodone. Now with chest pain typical of her prior vaso-occlusive episodes. Vaso-occlusive chest pain episode in patient with sickle cell disease: -Patient has a history of sickle cell disease and has been admitted several times at several hospitals for acute vaso-occlusive pain episodes. -She follows with hematology Dr. Madrigal at [facility] for her continued treatment. Last seen per [facility] EMR on September 24, 2019. -Patient's baseline hemoglobin is between 8-9 in [facility] records. And last note recommended that if she continues to have chest pain symptoms to get CXR and echocardiogram. -CXR performed on admission without signs of acute chest. -Echocardiogram ordered this afternoon. -Reports several week history of intermittent "sickle cell like" chest pain that has become constant over the last several days, despite several doses of oxycodone. -Hemoglobin today 8.0, slightly down from 8.3 yesterday though still within baseline, will continue to monitor. -No signs on lab work suggestive of splenic sequestration. -Reticulocyte count on lab work 0.35, reticulocyte % 15.7. This is more elevated than previous admissions. -Transition morphine to Percocet 2 tabs every 4 hours as needed for acute pain. -Continue D5 normal saline with 20 M EQ potassium at rate of 150 mL/hr. if patient does well on oxycodone medication will consider de-escalation of fluids. -Continue Lovenox DVT prophylaxis. -Continue home dose hydroxyurea 500 mg 3 times daily, and encouraged her today to continue as such in the outpatient setting to reduce frequency of pain episodes. -Call placed to Dr. Madrigal's office to discuss patient's current status, suspect will reach him within the next several days. Intentional overdose: -Patient has stated that the medications that she took in excess at home were Celebrex, tramadol, oxycodone. -INR 1.2 on admission, baseline appears to be approximately 1.2 dating back to 10/26/2018. LFTs are normal. -Consult psychiatry placed on admit: 302 signed, advised patient is to go to inpatient psych after medically cleared. -Patient has significant concerns that she will be out of school for a long period of time and desires to graduate on time. -Will confer with psychiatry and CM regarding resources for medical leave from school, extensions, etc. -Medically patient is much improved with regard to her overdose status, she is alert and oriented, saturating well on room air, and reports severe constant pain as her stressor causing her suicide attempt. Psychogenic Non-epileptic Seizures: -Patient has a history of PN ES, has undergone extensive work-up including EEG during episodes and epileptic seizures have been ruled out. -Last night with episode of seizure-like activity however not apparent epileptic in nature. -No medication changes at this time, physician to patient's bedside if experiences seizure-like activity to evaluate for etiology. -Patient will go to inpatient psych following discharge, may benefit from changes in psychiatric medications and outpatient counseling. Depression: -Resume home Cymbalta. -Continue 1:1. -While patient has a history of depression and is admitted for intentional overdose, she does have future plans (talked about her goals for job searching following graduating college). -It is possible that her history of depression is secondary to frequent acute pain crises, as patient has reported this admission a sense of "hopelessness" over the last several days due to her pain. Code Status: FULL CODE FENGI: normal diet, D5NSS with 20meq KCl @ 150ml/hr DVT ppx: Lovenox Dispo: Telemetry for continued monitoring Admission and Anticipated Discharge Date Admission Date: November 20, 2019 Supervising Physician Co-Signing Physician Notes I personally examined the patient and verified all amaro points of history and exam, discussed case, and agree with decision making with Dr Sarkar. sleeping comfortably but pain worse earlier vitals noted sleeping comfortably now and tolerable pain earlier when saw by dr sarkar (but when seen again again worse pain later) sickle cell crisis - chest pain but fortunately not showing criteria for acute chest syndrome. pain control (tried to see how she might do on PO pain control - unfortunately not well - revert to IV for now) continue fluids. try to help w retirement management/adherence/follow up/etc polysubstance OD/suicidality - stable now, OD appears to have passed. breathing stable/etc. under 302. question how much poorly controlled sickle cell and pain might drive her psychiatric issues acute anemia - almost certainly related to sickle cell hemolysis lightheaded - follow dvt proph - lovenox otherwise as above Subjective Patient overnight had one episode of seizurelike activity. Resident hospitalist front desk evaluated patient at bedside, noted to have stable vitals during the event, no incontinence or tongue biting, lasting for several minutes with immediate return to full consciousness following. Patient has a history of psychogenic nonepileptic seizures. This morning patient is tired due to the events overnight, causing her to not get as much sleep. She did not have any worsening in her chest pain or dizziness overnight, but reports "the chest pain is still there". Patient was sleeping on my arrival this morning into the room. No endorsement of fevers or chills, nausea or vomiting, shortness of breath, headache, dizziness is somewhat improved. Vitals overnight were stable and patient has been afebrile. One-to-one overnight for intentional overdose prompting admission. Review of Systems Review of Systems: All systems reviewed & are unremarkable except as noted in HPI & below Constitutional: no fever, no chills and no malaise Respiratory: no cough and no dyspnea Cardiovascular: + chest pain (Midsternal radiating to back, describes it as "like her sickle cell pain"); no palpitations and no edema Gastrointestinal: no abdominal pain, no constipation and no diarrhea/loose stools Genitourinary: no dysuria and no hematuria Musculoskeletal: + back pain (Chronic, unchanged) Physical Exam Constitutional: WD/WN, vitals as above Eyes: PERRL, conjunctivae normal, anicteric sclerae ENMT: external ear and nose normal, oropharynx normal Neck: normal visual inspection Respiratory: normal respiratory effort, lungs clear to auscultation Cardiovascular: RRR, no murmur, no edema Gastrointestinal (Abdomen): normal bowel sounds, soft, nontender, no hepatosplenomegaly Musculoskeletal: Extremities: no cyanosis and no clubbing Skin: no rashes, warm and dry Neurologic: AAOx3, normal speech. Normal visual acuity bilaterally. Bilateral UE, LE, and face without sensory or motor deficits. No tremor. Psychiatric: A+Ox3, euthymic affect Results & Data Results & Data ([facility]) Vital Signs (Past 12 Hours) Vital Signs Temp Pulse Resp BP BP Pulse Ox 11/21/19 07:00 36.9 C 66 18 108/66 93 11/21/19 03:31 36.9 C 62 16 102/58 L 94 11/20/19 23:58 36.9 C 73 14 117/74 95 Resident Activity Tracking Resident Involvement: Resident Care Provided Care Provided: Adult Hospital Medicine (1) Suicide gesture Encounter type: initial encounter Qualified Code(s): X83.8XXA - Intentional self-harm by other specified means, initial encounter
[2019-11-21] MEDS: ENOXAPARIN INJ 40 MG/0.4 ML SYR SQ SCH (08:23)
[2019-11-21] MEDS: HYDROXYUREA 500 MG CAP PO SCH ×3 (08:23→21:45)
[2019-11-21] MEDS: POLYETHYLENE (MIRALAX) 17 GM PACK PO SCH (08:26)
[2019-11-21] MEDS ORDERED: HYDROXYUREA 500 MG CAP PO SCH (09:00)
[2019-11-21] MEDS ORDERED: OXYCODONE/ACETAMINOPHEN 5mg/325mg TAB PO PRN (10:36)
[2019-11-21] MEDS: DULOXETINE HCL 20 MG CAP PO SCH (12:36)
[2019-11-21] MEDS: FOLIC ACID 1 MG TAB PO SCH (12:36)
[2019-11-21] MEDS ORDERED: MoRPHine SULFATE 10 MG/ML CARP/VIAL IV PRN (15:07)
[2019-11-21] MEDS ORDERED: MoRPHine SULFATE 2 MG/ML CARP IV STA (15:08)
--- NOTE | 2019-11-21 16:44 | Billing Data ---
Date of Service November 21, 2019 Coding Level of Care Code 02947 Subseq Hosp Care Lvl 3
[2019-11-21] MEDS: MoRPHine SULFATE 10 MG/ML CARP/VIAL IV PRN (19:34)
[2019-11-22] MEDS: D5W AND 1/2NSS + 20MEQ KCL 20 MEQ/1,000 ML BAG IV SCH ×4 (01:17→23:14)
[2019-11-22] MEDS ORDERED: MoRPHine SULFATE 2 MG/ML CARP ONE (02:22)
[2019-11-22] MEDS ORDERED: MoRPHine SULFATE 4 MG/ML 1 ML CARP\\VIAL ONE (02:23)
[2019-11-22] MEDS: MoRPHine SULFATE 10 MG/ML CARP/VIAL IV PRN (02:28)
[2019-11-22 07:35] LABS: Mean Corpuscular Hgb Conc 35.2 g/dL (32-36); Mean Platelet Volume 9.1 fL (7.4-10.4); Platelet Count 330 K/uL (130-400)
[2019-11-22 08:01] LABS: Alanine Aminotransferase 16 U/L (12-78); Albumin Level 3.3 gm/dl (3.4-5.0); Aspartate Aminotransferase 24 U/L (15-37); BUN Creatinine Ratio 5.1 (10-20); Blood Urea Nitrogen 2 mg/dl (7-18); Calcium 8.7 mg/dl (8.5-10.1); Carbon Dioxide 27 mmol/L (21-32); Chloride 107 mmol/L (98-107); Creatinine Clr Calc Pharmacy 192.3 ml/min; Est GFR (African American) > 150.0; Est GFR (Non-African American) 143.2; Glucose 92 mg/dl (70-99); Potassium 3.6 mmol/L (3.5-5.1); Sodium 138 mmol/L (136-145)
[2019-11-22 08:03] LABS: Albumin Globulin Ratio 0.9 (0.9-2); Alkaline Phosphatase 66 U/L (45-117); Bilirubin,Total 2.4 mg/dl (0.2-1); Globulin 3.7 gm/dl (2.5-4.0)
[2019-11-22 08:17] LABS: Hematocrit (blood only) 23.6 % (37-47); Hemoglobin 8.3 g/dL (12.0-16.0); Mean Corpuscular Hemoglobin 35.5 pg (25-34); Mean Corpuscular Volume 100.9 fL (80-100); Nucleated RBC # (auto) 1.64 K/uL (0-0); Nucleated RBC % (auto) 29.3 %; RDW Coefficient of Variation 21.2 % (11.5-14.5); RDW Standard Deviation 75.8 fL (36.4-46.3); Red Blood Count 2.34 M/uL (4.2-5.4); White Blood Count 5.59 K/uL (4.8-10.8)
[2019-11-22 08:18] LABS: Anisocytosis Present; Basophils # (auto) 0.02 K/uL (0-0.2); Basophils % (auto) 0.4 %; Eosinophils # (auto) 0.24 K/uL (0-0.5); Eosinophils % (auto) 4.3 %; Lymphocytes # (auto) 3.47 K/uL (1.2-3.4); Lymphocytes % (auto) 62.1 %; Monocytes # (auto) 0.42 K/uL (0.11-0.59); Monocytes % (auto) 7.5 %; Neutrophils # (auto) 1.44 K/uL (1.4-6.5); Neutrophils % (auto) 25.7 %; Pappenheimer Bodies 2+; Polychromasia 1+; Sickle Cells 1+; Target Cells 1+
[2019-11-22] MEDS: ENOXAPARIN INJ 40 MG/0.4 ML SYR SQ SCH (08:46)
[2019-11-22] MEDS: FOLIC ACID 1 MG TAB PO SCH (08:47)
[2019-11-22] MEDS: DULOXETINE HCL 20 MG CAP PO SCH (08:47)
[2019-11-22] MEDS: HYDROXYUREA 500 MG CAP PO SCH ×3 (08:47→20:18)
[2019-11-22] MEDS: POLYETHYLENE (MIRALAX) 17 GM PACK PO SCH (08:50)
[2019-11-22] MEDS: MoRPHine SULFATE 4 MG/ML 1 ML CARP\\VIAL IV PRN ×3 (10:43→20:16)
--- NOTE | 2019-11-22 11:18 | Hospitalist Progress Note ---
Date of Service November 22, 2019 Assessment & Plan (1) Suicide gesture: Patient is a 19-year-old female with past medical history significant for sickle cell disease, nonepileptic seizures, depression who presented for intentional overdose of unknown substances questionably Celebrex, tramadol, oxycodone. Now with chest pain typical of her prior vaso-occlusive episodes. Vaso-occlusive chest pain episode in patient with sickle cell disease: - Patient has a history of sickle cell disease and has been admitted several times at several hospitals for acute vaso-occlusive pain episodes. - She follows with hematology Dr. Madrigal [place] [facility] continued treatment. Perri st seen per [employer] EMR on September 24, 2019. -Patient's baseline hemoglobin is between 8-9 in [facility] records. And last note recommended that if she continues to have chest pain symptoms to get CXR and echocardiogram. -CXR performed on admission without signs of acute chest. -Echocardiogram ordered this afternoon. - Reports several week history of intermittent "sickle cell like" chest pain that has become constant over the last several days, despite several doses of oxycodone and states this was the cause of her overdose - continue to monitor -No signs on lab work suggestive of splenic sequestration. -Reticulocyte count on lab work 0.35, reticulocyte % 15.7. This is more elevated than previous admissions. - increased morphine 4mg Q4h PRN for vaso-occlusive pain - Continue hydroxyurea 500 mg 3 times daily - Discussions with Dr. Madrigal indicate this has been a long-standing difficulty with the patient and patient has had recent hospitalizations for these crisis that exceed pain regimen, with previous history of overdoses on other medications Intentional overdose: -Patient has stated that the medications that she took in excess at home were Celebrex, tramadol, oxycodone. -INR 1.2 on admission, baseline appears to be approximately 1.2 dating back to 10/26/2018. LFTs are normal. -Consult psychiatry placed on admit: 302 signed, advised patient is to go to inpatient psych after medically cleared. -Patient has significant concerns that she will be out of school for a long period of time and desires to graduate on time. -Will confer with psychiatry and CM regarding resources for medical leave from school, extensions, etc. -Medically patient is much improved with regard to her overdose status, she is alert and oriented, saturating well on room air, and reports severe constant pain as her stressor causing her suicide attempt. Psychogenic Non-epileptic Seizures: - Patient has a history of PN ES, has undergone extensive work-up including EEG during episodes and epileptic seizures have been ruled out. - Last night with episode of seizure-like activity however not apparent epileptic in nature. - No medication changes at this time, physician to patient's bedside if experiences seizure-like activity to evaluate for etiology. - Patient will go to inpatient psych following discharge, may benefit from changes in psychiatric medications and outpatient counseling. Depression: - Resume home Cymbalta. - Continue 1:1. - While patient has a history of depression and is admitted for intentional overdose, she does have future plans (talked about her goals for job searching following graduating college). - It is possible that her history of depression is secondary to frequent acute pain crises, as patient has reported this admission a sense of "hopelessness" over the last several days due to her pain. Admission and Anticipated Discharge Date Admission Date: November 20, 2019 Supervising Physician Co-Signing Physician Notes I also saw the patient concur with the resident physician and confirmed amaro portions of the history and physical examination. Upon our exam, the patient is sleeping but awakens to her voice. Blood pressure 117/73, heart rate 64, respiratory rate 16. She is afebrile, pulse oximetry 95% on room air. Sickle cell crisis Phone discussion with patient's packager hand as noted above Will decrease IV morphine dose, but make more frequently Nonepileptic seizures Monitor Suicidal ideation with attempt Psychiatric admission pending medical stability Subjective Patient continues to endorse typical pains, denies worsening shortness of breath or fatigue; does not want to answer questions on suicidal intent or thoughts of self-harm; feel frustrated by having to be in the hospital and not being able to eat her food from outside the hospital. Yesterday, had food brought in with her and afterward there was some concern that there were extra medications brought in by friends, but she states this was only the bag that she was brought to the hospital with as her "go bag" when she has to go anywhere outside of the norm. Review of Systems Review of Systems: All systems reviewed & are unremarkable except as noted in Subjective Physical Exam Constitutional: WD/WN, vitals as above Eyes: PERRL, EOM intact bilaterally and reactive pupils ENMT: external ear and nose normal, oropharynx normal Respiratory: normal respiratory effort, lungs clear to auscultation Cardiovascular: Rate/Rhythm: regular rate and regular rhythm Heart Sounds: + murmur (systolic ejection murmur over LLSB); no gallop and no cardiac rub Gastrointestinal (Abdomen): normal bowel sounds, soft, nontender, no hepatosplenomegaly Musculoskeletal: no cyanosis or clubbing, extremities motor strength 5/5 Neurologic: patellar DTR's 2+ bilat, sensation intact and PERRL, EOMI, accommodation nl, no face palsy, no dysarthria Psychiatric: denies answering questions on current suicidal intent or thoughts of self-harm Results & Data Results & Data ([facility]) Vital Signs (Past 12 Hours) Vital Signs Temp Pulse Pulse Resp BP BP Pulse Ox 11/22/19 07:36 36.5 C 60 20 106/70 96 11/22/19 03:45 37.2 C 66 18 113/70 96 11/22/19 01:29 36.7 C 60 19 108/68 96 11/22/19 00:00 64 Laboratory Results 11/22/19 11/22/19 Range/Units 06:56 06:56 WBC 5.59 (4.8-10.8) K/uL RBC 2.34 L (4.2-5.4) M/uL Hgb 8.3 L (12.0-16.0) g/dL Hct 23.6 L (37-47) % MCV 100.9 H (80-100) fL MCH 35.5 H (25-34) pg MCHC 35.2 (32-36) g/dL RDW Std Deviation 75.8 H (36.4-46.3) fL RDW Coeff of Nando 21.2 H (11.5-14.5) % Plt Count 330 (130-400) K/uL MPV 9.1 (7.4-10.4) fL Immature Gran % (Auto) 0.0 % Neut % (Auto) 25.7 % Lymph % (Auto) 62.1 % Cavalier % (Auto) 7.5 % Eos % (Auto) 4.3 % Baso % (Auto) 0.4 % Neut # (Auto) 1.44 (1.4-6.5) K/uL Lymph # (Auto) 3.47 H (1.2-3.4) K/uL Cavalier # (Auto) 0.42 (0.11-0.59) K/uL Eos # (Auto) 0.24 (0-0.5) K/uL Baso # (Auto) 0.02 (0-0.2) K/uL Immature Gran # (Auto) 0.00 (0.00-0.02) K/uL Absolute Nucleated RBC 1.64 H (0-0) K/uL Nucleated RBC % (auto) 29.3 % Polychromasia 1+ Anisocytosis Present Pappenheimer Bodies 2+ Sickle Cells 1+ Target Cells 1+ Sodium 138 (136-145) mmol/L Potassium 3.6 (3.5-5.1) mmol/L Chloride 107 (98-107) mmol/L Carbon Dioxide 27 (21-32) mmol/L Anion Gap 4.0 (3-11) BUN 2 L (7-18) mg/dl Creatinine 0.45 L (0.6-1.2) mg/dl Est Cr Clr Drug Dosing 192.3 ml/min Est GFR ( Amer) > 150.0 Est GFR (Non-Af Amer) 143.2 BUN/Creatinine Ratio 5.1 L (10-20) Glucose 92 (70-99) mg/dl Calcium 8.7 (8.5-10.1) mg/dl Total Bilirubin 2.4 H (0.2-1) mg/dl AST 24 (15-37) U/L ALT 16 (12-78) U/L Alkaline Phosphatase 66 (45-117) U/L Total Protein 7.0 (6.4-8.2) gm/dl Albumin 3.3 L (3.4-5.0) gm/dl Globulin 3.7 (2.5-4.0) gm/dl Albumin/Globulin Ratio 0.9 (0.9-2) Medications Administered Current Inpatient Medications Duloxetine HCl (Duloxetine Hcl 20 Mg Cap) 20 mg PO [facility] Stop: 12/21/19 10:59 Last Admin: 11/22/19 08:47 Dose: 20 mg Documented by: Enoxaparin Sodium (Enoxaparin Inj 40 Mg/0.4 Ml Syr) 40 mg SQ [facility] Stop: 12/20/19 09:29 Last Admin: 11/22/19 08:46 Dose: 40 mg Documented by: Folic Acid (Folic Acid 1 Mg Tab) 2 mg PO DAILY [facility] Stop: 12/21/19 10:59 Last Admin: 11/22/19 08:47 Dose: 2 mg Documented by: Hydroxyurea (Hydroxyurea 500 Mg Cap) 500 mg PO TID [facility] Stop: 12/20/19 20:59 Last Admin: 11/22/19 14:04 Dose: 500 mg Documented by: Potassium Chloride/Dextrose/Sod Cl (D5w And 1/2nss + 20meq Kcl) 20 meq in 1,000 mls @ 150 mls/hr IV .Q6H40M [facility] Stop: 12/20/19 09:14 Last Admin: 11/22/19 07:34 Dose: 150 mls/hr Documented by: Morphine Sulfate (Morphine Sulfate 4 Mg/Ml 1 Ml Carp\\Vial) 4 mg IV Q4H PRN PRN Reason: Pain Stop: 12/05/19 15:07 Last Admin: 11/22/19 14:53 Dose: 4 mg Documented by: Naloxone HCl (Naloxone Hcl 0.4 Mg/1 Ml Vial/Carp) 0.4 mg IV PRN PRN PRN Reason: narcotic related sedation Stop: 12/18/19 19:15 Ondansetron HCl (Ondansetron Inj 2 Mg/Ml 2 Ml Vial) 4 mg IV Q6H PRN PRN Reason: Nausea Stop: 12/20/19 18:06 Last Admin: 11/20/19 18:13 Dose: 4 mg Documented by: Polyethylene Glycol (Polyethylene (Miralax) 17 Gm Pack) 17 gm PO DAILY [facility] Stop: 12/21/19 08:59 Last Admin: 11/22/19 08:50 Dose: Not Given Documented by: Resident Activity Tracking Resident Involvement: Resident Care Provided Care Provided: Adult [facility] Medicine (1) Suicide gesture Encounter type: initial encounter Qualified Code(s): X83.8XXA - Intentional self-harm by other specified means, initial encounter
[2019-11-23] MEDS: MoRPHine SULFATE 4 MG/ML 1 ML CARP\\VIAL IV PRN ×5 (00:35→20:36)
[2019-11-23] MEDS: D5W AND 1/2NSS + 20MEQ KCL 20 MEQ/1,000 ML BAG IV SCH (05:52)
[2019-11-23] MEDS: ENOXAPARIN INJ 40 MG/0.4 ML SYR SQ SCH (08:48)
[2019-11-23] MEDS: HYDROXYUREA 500 MG CAP PO SCH ×3 (08:48→20:37)
[2019-11-23] MEDS: DULOXETINE HCL 20 MG CAP PO SCH (08:49)
[2019-11-23] MEDS: FOLIC ACID 1 MG TAB PO SCH (08:49)
[2019-11-23] MEDS: POLYETHYLENE (MIRALAX) 17 GM PACK PO SCH (08:49)
--- NOTE | 2019-11-23 12:32 | Hospitalist Progress Note ---
Date of Service November 23, 2019 Assessment & Plan (1) Suicide gesture: Patient is a 19-year-old female with past medical history significant for sickle cell disease, nonepileptic seizures, depression who presented for intentional overdose of unknown substances questionably Celebrex, tramadol, oxycodone. Now with chest pain typical of her prior vaso-occlusive episodes. Vaso-occlusive chest pain episode in patient with sickle cell disease: - Patient has a history of sickle cell disease and has been admitted several times at several hospitals for acute vaso-occlusive pain episodes. - She follows with hematology Dr. Madrigal at [facility] for her continued treatment. Perri john seen per [employer] EMR on September 24, 2019. -Patient's baseline hemoglobin is between 8-9 in [facility] records. And last note recommended that if she continues to have chest pain symptoms to get CXR and echocardiogram. -CXR performed on admission without signs of acute chest. -Echocardiogram ordered this afternoon. - Reports several week history of intermittent "sickle cell like" chest pain that has become constant over the last several days, despite several doses of oxycodone and states this was the cause of her overdose - continue to monitor -No signs on lab work suggestive of splenic sequestration. -Reticulocyte count on lab work 0.35, reticulocyte % 15.7. This is more elevated than previous admissions. - increased morphine 3mg Q3h PRN for vaso-occlusive pain; will attempt to transition to PO tomorrow - Continue hydroxyurea 500 mg 3 times daily - Discussions with Dr. Madrigal indicate this has been a long-standing difficulty with the patient and patient has had recent hospitalizations for these crisis that exceed pain regimen, with previous history of overdoses on other medications Intentional overdose: -Patient has stated that the medications that she took in excess at home were Celebrex, tramadol, oxycodone. -INR 1.2 on admission, baseline appears to be approximately 1.2 dating back to 10/26/2018. LFTs are normal. -Consult psychiatry placed on admit: 302 signed, advised patient is to go to inpatient psych after medically cleared. -Patient has significant concerns that she will be out of school for a long period of time and desires to graduate on time. -Will confer with psychiatry and CM regarding resources for medical leave from school, extensions, etc. -Medically patient is much improved with regard to her overdose status, she is alert and oriented, saturating well on room air, and reports severe constant pain as her stressor causing her suicide attempt. Non-epileptiform Seizures: - Patient has a history of non-epileptiform seizures, has undergone extensive work-up including EEG during episodes and epileptic seizures have been rule - No medication changes at this time, physician to patient's bedside if e xperiences seizure-like activity to evaluate for etiology. - Patient will go to inpatient psych following discharge, may benefit from changes in psychiatric medications and outpatient counseling. Depression: - Resume home Cymbalta. - Continue 1:1. - While patient has a history of depression and is admitted for intentional overdose, she does have future plans (talked about her goals for job searching following graduating college). - It is possible that her history of depression is secondary to frequent acute pain crises, as patient has reported this admission a sense of "hopelessness" over the last several days due to her pain. Admission and Anticipated Discharge Date Admission Date: November 20, 2019 Supervising Physician Co-Signing Physician Notes I also saw the patient concur with the resident physician and confirmed amaro portions of the history and physical examination. Upon our exam today, the patient is awake and seems much happier overall. She states that her pain is less today compared to yesterday. She is quite conversational. Her pain is relieved with the morphine although seems to be getting increased pain prior to her next dose. Blood pressure 122/76, heart rate 60, respiratory rate 16. She is afebrile, pulse oximetry 97% on room air. Sickle cell crisis Change morphine to 3 mg every 3 hours as needed Hopefully able to transition to oral pain medicines tomorrow Nonepileptic seizures Monitor Suicidal ideation with attempt Cymbalta restarted Psychiatric admission pending medical stability Subjective Patient much more interactive and expressive this morning; has some concerns about her continued pain towards the end of the 4 hours of her pain. Review of Systems Review of Systems: All systems reviewed & are unremarkable except as noted in Subjective Physical Exam Constitutional: WD/WN, vitals as above Eyes: PERRL, EOM intact bilaterally and reactive pupils ENMT: external ear and nose normal, oropharynx normal Respiratory: normal respiratory effort, lungs clear to auscultation Cardiovascular: Rate/Rhythm: regular rate and regular rhythm Heart Sounds: + murmur (systolic ejection murmur over LLSB); no gallop and no cardiac rub Gastrointestinal (Abdomen): normal bowel sounds, soft, nontender, no hepatosplenomegaly Musculoskeletal: no cyanosis or clubbing, extremities motor strength 5/5 Neurologic: patellar DTR's 2+ bilat, sensation intact and PERRL, EOMI, accommodation nl, no face palsy, no dysarthria Results & Data Results & Data ([facility]) Vital Signs (Past 12 Hours) Vital Signs Temp Pulse Resp BP Pulse Ox 11/23/19 11:50 37.1 C 58 L 20 96/56 L 95 11/23/19 07:20 37.1 C 58 L 20 95/54 L 97 11/23/19 03:31 36.5 C 73 18 102/56 L 97 Medications Administered Current Inpatient Medications Duloxetine HCl (Duloxetine Hcl 20 Mg Cap) 20 mg PO QAM [facility] Stop: 12/21/19 10:59 Last Admin: 11/23/19 08:49 Dose: 20 mg Documented by: Enoxaparin Sodium (Enoxaparin Inj 40 Mg/0.4 Ml Syr) 40 mg SQ [facility] Stop: 12/20/19 09:29 Last Admin: 11/23/19 08:48 Dose: 40 mg Documented by: Folic Acid (Folic Acid 1 Mg Tab) 2 mg PO DAILY [facility] Stop: 12/21/19 10:59 Last Admin: 11/23/19 08:49 Dose: 2 mg Documented by: Hydroxyurea (Hydroxyurea 500 Mg Cap) 500 mg PO TID [facility] Stop: 12/20/19 20:59 Last Admin: 11/23/19 13:04 Dose: 500 mg Documented by: Morphine Sulfate (Morphine Sulfate 4 Mg/Ml 1 Ml Carp\\Vial) 3 mg IV Q3H PRN PRN Reason: Pain Stop: 12/06/19 10:00 Last Admin: 11/23/19 13:02 Dose: 3 mg Documented by: Naloxone HCl (Naloxone Hcl 0.4 Mg/1 Ml Vial/Carp) 0.4 mg IV PRN PRN PRN Reason: narcotic related sedation Stop: 12/18/19 19:15 Ondansetron HCl (Ondansetron Inj 2 Mg/Ml 2 Ml Vial) 4 mg IV Q6H PRN PRN Reason: Nausea Stop: 12/20/19 18:06 Last Admin: 10/03/20 18:13 Dose: 4 mg Documented by: Polyethylene Glycol (Polyethylene (Miralax) 17 Gm Pack) 17 gm PO DAILY [facility] Stop: 12/21/19 08:59 Last Admin: 11/23/19 08:49 Dose: Not Given Documented by: Resident Activity Tracking Resident Involvement: Resident Care Provided Care Provided: Adult Hospital Medicine (1) Suicide gesture Encounter type: initial encounter Qualified Code(s): X83.8XXA - Intentional self-harm by other specified means, initial encounter
[2019-11-24] MEDS: MoRPHine SULFATE 4 MG/ML 1 ML CARP\\VIAL IV PRN ×5 (00:16→14:50)
[2019-11-24] MEDS: ENOXAPARIN INJ 40 MG/0.4 ML SYR SQ SCH (08:52)
[2019-11-24] MEDS: HYDROXYUREA 500 MG CAP PO SCH ×3 (08:52→21:29)
[2019-11-24] MEDS: FOLIC ACID 1 MG TAB PO SCH (08:52)
[2019-11-24] MEDS: DULOXETINE HCL 20 MG CAP PO SCH (08:52)
[2019-11-24] MEDS: POLYETHYLENE (MIRALAX) 17 GM PACK PO SCH (08:55)
--- NOTE | 2019-11-24 10:08 | Hospitalist Progress Note ---
Date of Service November 24, 2019 Assessment & Plan (1) Suicide gesture: Patient is a 19-year-old female with past medical history significant for sickle cell disease, nonepileptic seizures, depression who presented for intentional overdose of unknown substances questionably Celebrex, tramadol, oxycodone. Now with chest pain typical of her prior vaso-occlusive episodes. Vaso-occlusive chest pain episode in patient with sickle cell disease: - Patient has a history of sickle cell disease and has been admitted several times at several hospitals for acute vaso-occlusive pain episodes. - She follows with hematology Dr. Madrigal at [facility] for her continued treatment. [facility] seen per [facility] EMR on September 24, 2019. -Patient's baseline hemoglobin is between 8-9 in [facility] records. And last note recommended that if she continues to have chest pain symptoms to get CXR and echocardiogram. -CXR performed on admission without signs of acute chest. -Echocardiogram ordered this afternoon. - Reports several week history of intermittent "sickle cell like" chest pain that has become constant over the last several days, despite several doses of oxycodone and states this was the cause of her overdose - continue to monitor -No signs on lab work suggestive of splenic sequestration. -Reticulocyte count on lab work 0.35, reticulocyte % 15.7. This is more elevated than previous admissions. - continue morphine 3mg Q3h PRN for vaso-occlusive pain; will continue to attempt to transition to PO - Continue hydroxyurea 500 mg 3 times daily - Discussions with Dr. Madrigal indicate this has been a long-standing difficulty with the patient and patient has had recent hospitalizations for these crisis that exceed pain regimen, with previous history of overdoses on other medications Intentional overdose: -Patient has stated that the medications that she took in excess at home were Celebrex, tramadol, oxycodone. -INR 1.2 on admission, baseline appears to be approximately 1.2 dating back to 10/26/2018. LFTs are normal. -Consult psychiatry placed on admit: 302 signed, advised patient is to go to inpatient psych after medically cleared. -Medically patient is much improved with regard to her overdose status Non-epileptiform Seizures: - Patient has a history of non-epileptiform seizures, has undergone extensive work-up including EEG during episodes and epileptic seizures have been rule - No medication changes at this time, physician to patient's bedside if experiences seizure-like activity to evaluate for etiology. - Patient will go to inpatient psych following discharge, may benefit from changes in psychiatric medications and outpatient counseling. Depression: - continue home Cymbalta - restart Buspar 10mg BID - Continue 1:1 sitter - It is possible that her history of depression is secondary to frequent acute pain crises, as patient has reported this admission a sense of "hopelessness" over the last several days due to her pain. (2) Vaso-occlusive sickle cell crisis: (3) Depression: Admission and Anticipated Discharge Date Admission Date: November 20, 2019 Supervising Physician Co-Signing Physician Notes I also saw the patient concurrent with the resident physician and confirmed amaro portions of the history and physical examination. She does not feel quite as well she did yesterday, describing more pain and fatigue. She tells us that she had increased chest discomfort earlier today but at this moment in time it is a little bit better. It is not the patient just received IV morphine about 5 minutes prior to our exam. Blood pressure 104/67, pulse 76, respiratory rate 18. She is afebrile with a temperature of 31.1 C. 96% on room air. Heart regular rate and rhythm Lungs are clear with nonlabored respirations Sickle cell crisis Start oxycodone 5 mg p.o. every 6 hours scheduled Change morphine to 3 mg every 6 hours as needed Given her increased pain this morning, check EKG, troponin, and chest x-ray. Nonepileptic seizures Monitor Suicidal ideation with attempt Cymbalta restarted BuSpar restarted at slightly lower than home dose (10 mg p.o. twice daily) Psychiatric admission pending medical stability Subjective Patient feels like the brunt of her pain has improved mildly since yesterday, the switching of dosing has much better covered the end of the cycle pains. This morning was having more pains that were generalized to her upper body with no particular point of worst pain, consistent with her typical crisis pains, and were relieved by the IV medications. Feels frustrated by the continued cycling of her pain and feeling like she never knows when it will come or go. Review of Systems Review of Systems: All systems reviewed & are unremarkable except as noted in Subjective Physical Exam Constitutional: WD/WN, vitals as above Eyes: PERRL, EOM intact bilaterally and reactive pupils ENMT: external ear and nose normal, oropharynx normal Respiratory: normal respiratory effort, lungs clear to auscultation Cardiovascular: Rate/Rhythm: regular rate and regular rhythm Heart Sounds: + murmur (systolic ejection murmur over LLSB); no gallop and no cardiac rub Gastrointestinal (Abdomen): normal bowel sounds, soft, nontender, no hepatosplenomegaly Musculoskeletal: no cyanosis or clubbing, extremities motor strength 5/5 Neurologic: patellar DTR's 2+ bilat, sensation intact and PERRL, EOMI, accommodation nl, no face palsy, no dysarthria Results & Data Results & Data ([facility]) Vital Signs (Past 12 Hours) Vital Signs Temp Pulse Pulse Resp BP Pulse Ox 11/24/19 08:00 37.1 C 70 20 108/67 96 11/24/19 03:17 37.1 C 74 17 103/64 97 11/23/19 23:34 37.1 C 77 18 115/73 95 11/23/19 23:00 75 Laboratory Results 11/24/19 Range/Units 15:46 Troponin I < 0.015 (0-0.045) ng/ml Medications Administered Current Inpatient Medications Buspirone HCl (Buspirone 5 Mg Tab) 10 mg PO BID WALTER Stop: 12/24/19 20:59 Duloxetine HCl (Duloxetine Hcl 20 Mg Cap) 20 mg PO QAM WALTER Stop: 12/21/19 10:59 Last Admin: 11/24/19 08:52 Dose: 20 mg Documented by: Enoxaparin Sodium (Enoxaparin Inj 40 Mg/0.4 Ml Syr) 40 mg SQ QAM WALTER Stop: 12/20/19 09:29 Last Admin: 11/24/19 08:52 Dose: 40 mg Documented by: Folic Acid (Folic Acid 1 Mg Tab) 2 mg PO DAILY WALTER Stop: 12/21/19 10:59 Last Admin: 11/24/19 08:52 Dose: 2 mg Documented by: Hydroxyurea (Hydroxyurea 500 Mg Cap) 500 mg PO TID WALTER Stop: 12/20/19 20:59 Last Admin: 11/24/19 13:31 Dose: 500 mg Documented by: Morphine Sulfate (Morphine Sulfate 4 Mg/Ml 1 Ml Carp\\Vial) 3 mg IV Q6H PRN PRN Reason: Breakthrough Pain Stop: 12/08/19 20:59 Naloxone HCl (Naloxone Hcl 0.4 Mg/1 Ml Vial/Carp) 0.4 mg IV PRN PRN PRN Reason: narcotic related sedation Stop: 12/18/19 19:15 Ondansetron HCl (Ondansetron Inj 2 Mg/Ml 2 Ml Vial) 4 mg IV Q6H PRN PRN Reason: Nausea Stop: 12/20/19 18:06 Last Admin: 11/20/19 18:13 Dose: 4 mg Documented by: Oxycodone HCl (Oxycodone Hcl Soln 5 Mg/5 Ml Udc) 5 mg PO Q6H WALTER Stop: 12/08/19 17:59 Polyethylene Glycol (Polyethylene (Miralax) 17 Gm Pack) 17 gm PO DAILY WALTER Stop: 12/21/19 08:59 Last Admin: 11/24/19 08:55 Dose: 17 gm Documented by: Resident Activity Tracking Resident Involvement: Resident Care Provided Care Provided: Adult [facility] Medicine (1) Suicide gesture Encounter type: initial encounter Qualified Code(s): X83.8XXA - Intentional self-harm by other specified means, initial encounter (2) Depression Active/Remission status: currently active Depression Type: major depressive disorder Major depression episode severity: severe Major depression recurrence: recurrent Psychotic features: without psychotic features Qualified Code(s): F33.2 - Major depressive disorder, recurrent severe without psychotic features
--- NOTE | 2019-11-24 12:59 | Communication Note ---
Date of Service: November 24, 2019 Received Current Diagnoses and Medication List from Dr. Valverde - patient's outpatient psychiatrist: Diagnoses: - Major depressive disorder, recurrent, moderate - Anxiety disorder, unspecified - Insomnia, unspecified - Borderline personality disorder Current Medication List: - Klonopin 0.5mg BID - Cymbalta 20mg qAM - Buspirone 10mg TID Reviewed confirmed medication list with hospitalist. Discussed plan to resume buspirone at lower dosage (10mg BID) for the time being. Cymbalta was already initiated at the 20mg dose.
--- NOTE | 2019-11-24 16:15 | XRay Report ---
XR chest 1V portable CLINICAL HISTORY: sickle cell crisis COMPARISON STUDY: 11/18/2019 FINDINGS: The cardiac and mediastinal contours are normal. There is no evidence of focal pulmonary co nsolidation. There is no evidence of failure. No pleural effusions are visualized.[ IMPRESSION: No active disease in the chest. ACT 112: Negative or not required by law. Electronically signed by: Jacob Phillips M.D. 11/24/2019 4:14 PM
[2019-11-24] MEDS: OXYCODONE HCL SOLN 5 MG/5 ML UDC PO SCH ×2 (18:17→23:32)
[2019-11-24] MEDS ORDERED: HALOPERIDOL LACTATE 5 MG/ML 1 ML VIAL IM STA ×2 (20:42→21:07)
[2019-11-24] MEDS ORDERED: LORazepam 2 MG/ML VIAL (IM USE) IM STA ×2 (20:42→21:07)
[2019-11-24] MEDS ORDERED: HALOPERIDOL LACTATE 5 MG/ML 1 ML VIAL ONE (20:44)
[2019-11-24] MEDS ORDERED: LORazepam 2 MG/4 ML VIAL ONE ×2 (20:44→21:11)
[2019-11-24] MEDS ORDERED: MoRPHine SULFATE 4 MG/ML 1 ML CARP\\VIAL IV PRN (21:00)
[2019-11-25] MEDS: OXYCODONE HCL SOLN 5 MG/5 ML UDC PO SCH ×2 (06:54→13:22)
--- NOTE | 2019-11-25 11:00 | Hospitalist Progress Note ---
Date of Service November 25, 2019 Assessment & Plan (1) Suicide gesture: Patient is a 19-year-old female with past medical history significant for sickle cell disease, nonepileptic seizures, depression who presented for intentional overdose of unknown substances questionably Celebrex, tramadol, oxycodone. Now with chest pain typical of her prior vaso-occlusive episodes. Vaso-occlusive chest pain episode in patient with sickle cell disease: - Patient has a history of sickle cell disease and has been admitted several times at several hospitals for acute vaso-occlusive pain episodes. - She follows with hematology Dr. Madrig[place] [facility] [place] her continued treatment. La st seen per [facility] EMR on September 24, 2019. -Patient's baseline hemoglobin is between 8-9 in [facility] records. And last note recommended that if she continues to have chest pain symptoms to get CXR and echocardiogram. - Reports several week history of intermittent "sickle cell like" chest pain that has become constant over the last several days, despite several doses of oxycodone and states this was the cause of her overdose - continue oxycodone 5mg q6h scheduled - Continue hydroxyurea 500 mg 3 times daily - Discussions with Dr. Madrigal indicate this has been a long-standing difficulty with the patient and patient has had recent hospitalizations for these crisis that exceed pain regimen, with previous history of overdoses on other medications Intentional overdose: -Patient has stated that the medications that she took in excess at home were Celebrex, tramadol, oxycodone. -Consult psychiatry placed on admit: 302 signed, advised patient is to go to inpatient psych after medically cleared. Non-epileptiform Seizures: - Patient has a history of non-epileptiform seizures, has undergone extensive work-up including EEG during episodes and epileptic seizures have been rule - No medication changes at this time, physician to patient's bedside if experiences seizure-like activity to evaluate for etiology. - Patient will go to inpatient psych following discharge, may benefit from changes in psychiatric medications and outpatient counseling. Depression: - continue home Cymbalta - restart Buspar 10mg BID - Continue 1:1 sitter - It is possible that her history of depression is secondary to frequent acute pain crises, as patient has reported this admission a sense of "hopelessness" over the last several days due to her pain. (2) Vaso-occlusive sickle cell crisis: (3) Depression: Admission and Anticipated Discharge Date Admission Date: November 20, 2019 Supervising Physician Co-Signing Physician Notes I also saw the patient concurrent with the resident physician and confirmed amaro portions of the history and physical examination. Events of the overnight were reviewed. At the time of my examination, the patient was sleeping subsequent to being medicated with Haldol overnight. Blood pressure 96/62, heart rate 106, temperature 37.6 C Heart regular rate nonlabored respirations Sickle cell crisis Oxycodone 5 mg p.o. every 6 hours scheduled Discontinue morphine to 3 mg every 6 hours as needed as she has pulled out her IV access Nonepileptic seizures Monitor Suicidal ideation with attempt Cymbalta restarted BuSpar restarted at slightly lower than home dose (10 mg p.o. twice daily) Psychiatric admission pending medical stability Psychiatric liaison advised of events overnight Subjective Overnight patient required to be given two rounds of ativan and two rounds of haldol, because she was a risk of harm to herself following pulling out her IV on her own causing her to bleed onto the floor and then not allowing staff to help her stop the bleeding and sitting in her own blood. This morning she was continuing to be sedate following the administration of the medications overnight. Conversation was had with her sister discussing that over the last several days patient had expressed increasing concern with the patient telling her sister that the hospital staff were starving her. Review of Systems Review of Systems: Unobtainable due to reduced consciousness Physical Exam Constitutional: WD/WN, vitals as above Eyes: EOM intact bilaterally and reactive pupils ENMT: external ear and nose normal, oropharynx normal Respiratory: normal respiratory effort, lungs clear to auscultation Cardiovascular: Rate/Rhythm: regular rate and regular rhythm Heart Sounds: + murmur (systolic ejection murmur over LLSB); no gallop and no cardiac rub Gastrointestinal (Abdomen): normal bowel sounds, soft, nontender, no hepatosplenomegaly Musculoskeletal: no cyanosis or clubbing, extremities motor strength 5/5 Neurologic: patellar DTR's 2+ bilat, sensation intact and PERRL, EOMI, accommodation nl, no face palsy, no dysarthria Resident Activity Tracking Resident Involvement: Resident Care Provided Care Provided: Adult Hospital Medicine (1) Suicide gesture Encounter type: initial encounter Qualified Code(s): X83.8XXA - Intentional self-harm by other specified means, initial encounter (2) Depression Active/Remission status: currently active Depression Type: major depressive disorder Major depression episode severity: severe Major depression recurrence: recurrent Psychotic features: without psychotic features Qualified Code(s): F33.2 - Major depressive disorder, recurrent severe without psychotic features
[2019-11-25] MEDS: HYDROXYUREA 500 MG CAP PO SCH ×3 (12:41→21:20)
[2019-11-25] MEDS: POLYETHYLENE (MIRALAX) 17 GM PACK PO SCH (12:41)
[2019-11-25] MEDS: DULOXETINE HCL 20 MG CAP PO SCH (13:27)
[2019-11-25] MEDS: ENOXAPARIN INJ 40 MG/0.4 ML SYR SQ SCH (13:27)
[2019-11-25] MEDS: FOLIC ACID 1 MG TAB PO SCH (13:27)
[2019-11-25] MEDS: OXYCODONE HCL IR 5 MG TAB (IMMEDIATE RELEASE) PO SCH ×3 (17:59→22:08)
[2019-11-26] MEDS: OXYCODONE HCL IR 5 MG TAB (IMMEDIATE RELEASE) PO SCH ×3 (05:12→16:57)
[2019-11-26 07:01] LABS: BUN Creatinine Ratio 17.8 (10-20); Blood Urea Nitrogen 10 mg/dl (7-18); Calcium 9.5 mg/dl (8.5-10.1); Carbon Dioxide 23 mmol/L (21-32); Chloride 105 mmol/L (98-107); Creatinine Clr Calc Pharmacy 149.2 ml/min; Est GFR (African American) > 150.0; Est GFR (Non-African American) 131.8; Glucose 74 mg/dl (70-99); Potassium 3.9 mmol/L (3.5-5.1); Sodium 137 mmol/L (136-145)
[2019-11-26 07:04] LABS: Anisocytosis Present; Basophils # (auto) 0.02 K/uL (0-0.2); Basophils % (auto) 0.3 %; Eosinophils # (auto) 0.07 K/uL (0-0.5); Eosinophils % (auto) 0.9 %; Hematocrit (blood only) 25.1 % (37-47); Hemoglobin 8.9 g/dL (12.0-16.0); Immature Granulocytes # (auto) 0.05 K/uL (0.00-0.02); Immature Granulocytes % (auto) 0.7 %; Lymphocytes # (auto) 2.52 K/uL (1.2-3.4); Lymphocytes % (auto) 33.9 %; Mean Corpuscular Hemoglobin 35.3 pg (25-34); Mean Corpuscular Hgb Conc 35.5 g/dL (32-36); Mean Corpuscular Volume 99.6 fL (80-100); Mean Platelet Volume 9.8 fL (7.4-10.4); Monocytes # (auto) 0.75 K/uL (0.11-0.59); Monocytes % (auto) 10.1 %; Neutrophils # (auto) 4.02 K/uL (1.4-6.5); Neutrophils % (auto) 54.1 %; Nucleated RBC # (auto) 1.39 K/uL (0-0); Nucleated RBC % (auto) 18.7 %; Pappenheimer Bodies 1+; Platelet Count 222 K/uL (130-400); RDW Coefficient of Variation 21.5 % (11.5-14.5); RDW Standard Deviation 77.5 fL (36.4-46.3); Red Blood Count 2.52 M/uL (4.2-5.4); Sickle Cells Occasional; Target Cells 1+; White Blood Count 7.43 K/uL (4.8-10.8)
[2019-11-26] MEDS: ENOXAPARIN INJ 40 MG/0.4 ML SYR SQ SCH (09:12)
[2019-11-26] MEDS: HYDROXYUREA 500 MG CAP PO SCH ×2 (09:13→13:34)
[2019-11-26] MEDS: FOLIC ACID 1 MG TAB PO SCH (09:13)
[2019-11-26] MEDS: DULOXETINE HCL 20 MG CAP PO SCH (09:13)
[2019-11-26] MEDS ORDERED: ONDANSETRON 4 MG OD TAB PO STA (12:58)
--- NOTE | 2019-11-26 13:14 | Discharge Summary ---
Date of Service November 26, 2019 Admission HPI Per Admitting Provider Patient is a 19-year-old female with past medical history significant for sickle cell and nonepileptic seizures; who presented for intentional overdose of unknown substances. Upon presentation to the emergency department patient was reported as screaming "kill me", at that time patient was additionally asking for potassium to be delivered through her IV in order to kill her, and during initial assessment with the nurses attempted to take the cords from around the room to strangle herself. Following this patient was given 5 mg Haldol IM, Ativan 2 mg IM, and Benadryl 50 mg IM. Of the medications that were brought with her and counted by the emergency room staff indicated that oxycodone prescribed filled October 19 were completely empty, duloxetine tablets filled November 07 was missing for tablets, tramadol 50 mg tab prescription filled August 05 was missing 19 tablets, clonazepam prescription filled November 07 was missing 7 tablets, folic acid filled August 12 missing 31 tablets. Of note Tylenol and salicylate levels were unable to be run in our facility initially as patient was deemed to be too icteric for the labs to be run in patients were sent to [facility] in [place], expected results in back in a few days. Poison control contacted indicating continue monitoring with next therapy unless acetaminophen level resulted as normal, recommended VBG, EKG, CMP. Upon questioning by this provider, patient indicated that she took Celebrex, tramadol, and oxycodone of in an uncertain amount "took whatever was left of all 3." Endorses that this was an attempt to kill herself. Principal Diagnosis Intentional overdose Discharge Exam Constitutional WD/WN, vitals as above Eyes EOM intact bilaterally and reactive pupils ENMT external ear and nose normal, oropharynx normal Respiratory normal respiratory effort, lungs clear to auscultation Cardiovascular Rate/Rhythm: regular rate and regular rhythm Heart Sounds: + murmur (systolic ejection murmur over LLSB); no gallop and no cardiac rub Gastrointestinal (Abdomen) normal bowel sounds, soft, nontender, no hepatosplenomegaly Musculoskeletal no cyanosis or clubbing, extremities motor strength 5/5 Neurologic patellar DTR's 2+ bilat, sensation intact and PERRL, EOMI, accommodation nl, no face palsy, no dysarthria Discharge Data Allergies Allergy/AdvReac Type Severity Reaction Status Date / Time No Known Allergies Allergy Verified 09/06/20 20:51 Consultations 11/18/19 16:27 ED Decision to Admit Stat 11/18/19 18:51 Consult Psychiatry Routine Hospital Course (1) Suicide gesture: Patient is a 19-year-old female with past medical history significant for sickle cell disease, nonepileptic seizures, depression who presented for intentional overdose of unknown substances questionably Celebrex, tramadol, oxycodone. Vaso-occlusive chest pain episode in patient with sickle cell disease: - Patient has a history of sickle cell disease and has been admitted several times at several hospitals for acute vaso-occlusive pain episodes. - She follows with hematology Dr. Madrigal at [facility] for her continued treatment. Last seen per [facility] EMR on September 24, 2019. -Patient's baseline hemoglobin is between 8-9 in [facility] records. And last note recommended that if she continues to have chest pain symptoms to get CXR and echocardiogram. - Reports several week history of intermittent chest pain that has become constant over the last several days, despite several doses of oxycodone and states this was the cause of her overdose - continue oxycodone 5mg q8h as needed - Continue hydroxyurea 500 mg 3 times daily Intentional overdose: - Patient has stated that the medications that she took in excess at home were Celebrex, tramadol, oxycodone. - 302 signed, patient discharged to inpatient psych Non-epileptiform Seizures: - Patient has a history of non-epileptiform seizures, has undergone extensive work-up including EEG during episodes and epileptic seizures have been rule Depression: - continue home Cymbalta - continue Buspar 10mg BID - Continue 1:1 sitter (2) Vaso-occlusive sickle cell crisis: (3) Depression: Total Time Total Time Spent Total Time Spent (In Minutes): 30 Discharge Plan Discharge Items Patient Disposition: Transfer Inpatient Rehab Fac Reason For Visit: INTENTIONAL OVERDOSE Discharge Diagnosis: Intentional overdose Activity: Per Instructions section Non-emergency contact: Primary Care Provider Call non-emergency contact if: you have any medication questions Follow-up/Referrals: [place],[facility] [Primary Care Provider] - Diet: Regular Addtl Attending Provider Instructions: You were admitted for an intentional overdose. It is important that you follow- up with your therapist, and continue to work with the medical teams to help you continue to work on coping strategies in the face of your Sickle Cell. Pending Studies at Discharge: No Stand-Alone Forms: My [facility], Suicide Prevention Resources Skilled Items Patient informed of condition?: Yes DNR: No Discharge Level of Care: Other Communicable Disease: No Discharge Prognosis: Improving Lines: None Urinary Catheter: No Medications and DC Order Prescriptions: Continued clonazepam [Klonopin] 0.5 mg tablet 0.5 mg PO BID RF: 0 lorazepam [Ativan] 1 mg tablet 0.5 mg PO Q6H PRN (Reason: anxiety) Qty: 6 RF: 0 celecoxib 100 mg capsule 100 mg PO BID RF: 0 duloxetine 20 mg capsule,delayed release(DR/EC) 20 mg PO QAM RF: 0 oxycodone 5 mg tablet 5 mg PO Q8H PRN (Reason: Pain, Severe) RF: 0 tramadol 50 mg Tablet 50 mg PO Q12 PRN (Reason: Pain) RF: 0 folic acid 1 mg Tablet 2 mg PO DAILY RF: 0 buspirone 10 mg Tablet 10 mg PO TID RF: 0 Discharge Orders: Discharge Order (Routine); Ordered 11/26/19 Ordered By: Jono Thompson Admission Data Admit Date/Time: 11/20/19 18:26 Attending Provider: Selam Kaye Admit Provider: Jono Thomspon Primary Care Provider: [facility] Other Providers: Yazan Velez ; Holly Webster Other Interventions: Discharge Summary Assessment (RN) Last Done: 11/26/19 13:41 Supervising Physician Co-Signing Physician Notes Patient seen and examined with PGY-2 Dr. Thompson. Agree with history, exam findings, assessment and plan of care as outlined. In brief, James is a 19 year old female with hx significant for sickle cell anemi a, nonepileptic seizures admitted following intentional overdose. Denies worsening chest pain. She is ok with being transferred to [facility]. Nursing notes, vital signs, labs and imaging reviewed. 1. Intentional overdose. 302 signed. Medically stable to transfer to inpatient psych. 2. Sickle cell anemia with vaso-occlusive chest pain episodes. CXR on 11/23 unremarkable. Echo on 11/19 unremarkable. Followed by heme at [facility]. Baseline hgb 8-9. Continue scheduled oxy 5mg q6h and hydroxyurea 500mg TID. No IV access so unable to administer IV morphine. 3. Depression/Anxiety. Continue home Cymbalta and buspar 10mg BID. Dispo: transfer to inpatient psychiatry service today. I personally spent 25 minutes discharge planning for this patient. Resident Activity Tracking Resident Involvement: Resident Care Provided Care Provided: Adult [facility]
== END 2019-11-26 17:54 | DRG 917 ==
LOC: 2S 14:14 → ED 14:14 → 2S 18:05 → SUATTDRO 11-20 18:26 → 3E 11-25 17:32

== ENCOUNTER 2019-11-26 13:38 | Inpatient (IN) ==
[2019-11-26] MEDS ORDERED: MAGNESIUM HYDROXIDE SUSP 30 ML UDC PO PRN (15:05)
[2019-11-26] MEDS ORDERED: SODIUM CHLORIDE 0.65% NA SOLN 45 ML (OCEAN) PRN (15:05)
[2019-11-26] MEDS ORDERED: hydrOXYzine HCl 25 MG TAB PO PRN (15:05)
[2019-11-26] MEDS ORDERED: ALUMINUM/MAGNESIUM SUSP 30 ML UDC PO PRN (15:05)
[2019-11-26] MEDS ORDERED: BISMUTH SUBSALICYLATE LIQD 236 ML PO PRN (15:05)
[2019-11-26] MEDS: busPIRone 5 MG TAB PO SCH (22:25)
[2019-11-26] MEDS: CELECOXIB 100 MG CAP PO SCH (22:25)
--- NOTE | 2019-11-27 08:28 | History & Physical ---
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 She refuses to state what the triggering stressor was, but has been struggling to keep up with her schoolwork and does not performing well academically, has been having medical problems with her sickle cell anemia, and nonepileptic seizures. She has had at least 4 psychiatric hospitalizations in the past year, and both her sister and therapist expressed concerns about her immediate safety. On the medical floor she was behaviorally challenging, agitated, provocative, and uncooperative, receiving multiple IM medications, trying to leave, and repeatedly trying to get people to bring contraband items. She is putting barriers in place regarding current treatment recommendations from her outpatient therapist and our team, namely withdraw from school and attend PHP, with supervision and support with respect to medication access. Inpatient treatment is medically necessary due to the severity of symptoms and risk for suicide if discharged. She is on a 302 involuntary commitment. (1) Borderline personality disorder: 11/26 -clear and consistent boundaries. -Care has been coordinated with her outpatient therapist, Dr. Abena Bashir, and we will need to touch base with her next week as the patient is declining recommendations for higher level of outpatient care (PHP). She indicated unwillingness to resume seeing the patient until she has completed a program and is more stable. (2) Depression: 11/26 -education provided on her diagnosis and the treatment recommendations, including medications and therapy. Reviewed that medications will not work if she is only taking them 2 to 3 days a week, and that in some instances, this can worsen symptoms. Encouraged her to work on a plan to improve adherence, including a daily routine, regular sleep-wake cycle/times, and ideally identify someone to assist her in monitoring her medications. -Continue duloxetine 20 mg daily. Records reviewed from Dr. Valverde. -Family meeting with sister and mother. Mother reportedly coming from [facility], unclear when or for how long. -Encourage group attendance of participation. Work on healthy coping skills and discharge safety plan. -Continue involuntary commitment and gather information toward the need for ongoing involuntary treatment. -Treatment recommendations at this time are to withdraw from school and attend PHP or residential treatment, as her symptoms are so severe that she is not able to function, be successful in school, and is persistently suicidal. Patient is unfortunately unwilling to follow these recommendations, and we will need to have a meeting with [facility] Office of Student Care and Advocacy to determine her standing in school and how they can help support her. Active/Remission status: currently active Depression Type: major depressive disorder Major depression episode severity: severe Major depression recurrence: recurrent Psychotic features: without psychotic features Qualified Code(s): F33.2 - Major depressive disorder, recurrent severe without psychotic features (3) Sickle cell anemia: 11/26 -continue home doses of celecoxib, oxycodone and tramadol as needed. Attempt to determine what medications the patient still has left at home, and will contact Dr. Madrigal at [facility] on Friday to coordinate care and involve him in the safety plan regarding her medications. Ideally, somebody would keep all of her medications locked and dispense them to her daily, but in the absence of this level of supervision, would recommend she not have access to medications that are dangerous in overdose, and only receive 1 week of medications at a time. Sickle-cell associated disorders: without crisis Qualified Code(s): D57.1 - Sickle-cell disease without crisis (4) Pseudoseizures: 11/26 -patient reports more frequent nonepileptic seizures lately, likely triggered by her psychosocial stressors. Recommendations are for withdrawal from school and partial hospitalization and/or residential treatment, as she is not sufficiently stable to be successful, but unfortunately she is unwilling for this. Risk Factors Assessment Male: No : No Do You Have Access To A Gun?: No Health Problems: Yes Mental Health Diagnoses: Yes Substance Use Disorders: No Previous Attempt: Yes Previous Psychiatric Hospitalization: Yes Hopelessness: Yes Smoker: No Protective Factors Assessment Yazidism Beliefs: No : No Responsible for Young Children: No Employed: No Stable Relationships: No Supportive Family: Yes Psychiatric History Identifying Data ADÁN PEOPLES is a 19-year-old F who currently lives in [place] alone, has a history of depression, BDP, sickle cell anemia, and nonepileptic seizures, and was admitted on 11/26/19 18:06 on a 302 involuntary commitment for suicide attempt by overdose. Chief Complaint "Well I overdosed". History of Present Illness Patient initially presented to the ER 11/18/2019 tensional overdose on unknown substances, after her sister called 911 when the patient told her she had overdosed. In the ER she was screaming "kill me," asking for potassium to be given IV in order to kill her, and attempted to take cords in the room to strangle herself. She was given Haldol and Ativan IM, and admitted medically. The medications brought in with her were counted in the ER and included an oxycodone prescription from 10/20/2019 that was empty, duloxetine from 11/08/2019 that was missing #4 tablets, tramadol 50 mg from 08/06/2019 that was missing #19 tablets, clonazepam prescription from 11/08/2019 missing #7 tablets, folic acid from 08/13/2019 missing #31 tablets. She told the admitting hospitalist that she had taken Celebrex, tramadol, and oxycodone in unknown amounts, "what ever was left," in an attempt to kill herself. Her UDS was + opiates with > 10,000 nor oxycodone and elevated oxycodone and oxymorphone on confirmatory results. Psychiatric consultation was performed 11/19/2019, and the patient was focused on leaving the hospital, stated she just wanted to go back to outpatient treatment. She stated that school was a stressor, and expressed anger about her previous hospitalization on [address] stating she did not like "female authority figures." She said she is attempted suicide because of psychiatric hospitalizations, stating "I get so behind on school while I'm in the hospital and then I feel like there is no way I can catch up, so I become suicidal." She endorsed impulsivity, noting that she had a therapy appointment the morning of her overdose, and could not explain why she had been unable to reach out for support or utilize her safety plan. Initially all psychotropic medications were held, but later on in her stay duloxetine 20 mg and buspirone 10 mg 3 times daily were resumed. She was on the medical floor for an extended period of time she was receiving IV morphine for complaints of pain. While there, her outpatient psychiatrist was contacted and case reviewed, records obtained (see below) and her therapist was contacted, who has been seeing the patient by phone since 10/27/2019, 2-3 sessions a week. She recommended a higher level of care than what she is able to provide, and stated concerns for suicide given the patient's poor judgment, impulsivity, and unpredictability. She tends to overreact to situations and struggles to control her impulses. She recommended she not be in charge of administering her own opiates. They had discussed a plan for her to attend a partial program while living with her sister in [place], or her mother coming from [facility] to provide support. Her sister was also contacted, said she was worried about the patient, and stated that the patient sometimes forgets to take her medications, is stressed about school and not having supports. The family has been looking into obtaining a ditching machine engineer to come into the home and help her with medications, and feels she needs a higher level of care. Her sister stated that she recently moved from [place] to [place]. On 11/20/2019 she had seizure-like activity and during the response it was noted that a bag containing personal items was hidden in her bed, including opiate pain medications. She had behavioral problems, repeatedly attempting to get friends to bring in contraband items, asking to leave the hospital, demanding higher doses of IV morphine. On 11/24/2019, the patient ripped out her IV and attempted to elope from the hospital, was screaming at staff "I hate you all! You signed my warrant, now I will kill myself!" She received Haldol and Ativan IM, and was placed on a 302 warrant. 11/25/2019, she became angry when again reminded of restrictions due to suicide precautions, ripped off her heart monitor and said she was leaving the hospital, and a code mojgan was called. She again received Haldol and Ativan IM, and proceeded to lie on the floor in the hallway for close to an hour, while screaming "I hate you all, I am going to kill myself!" She had received a second injection of Haldol and Ativan. She refused p.o. medications for the rest of the day. On 11/26/2019, she was medically cleared and transferred to our unit on a 302 involuntary commitment. On my assessment today, the patient is partially cooperative with the assessment, although not necessarily forthcoming with information. She repeatedly answers questions by stating how anxious and unhappy she is to be in the hospital, instead of answering the question asked. She admits to intentionally overdosing to end her life, but when asked to describe the circumstances of the overdose, states "I don't know how to explain it." She states that for the month prior to her overdose she was "okay, [id number]," was going to therapy but was "sick a lot, seizures or sickle cell," so was missing a lot of school. She reports noncompliance with medications, stating she was only taking her pills 2 to 3 days a week, and attributes this to an erratic sleep schedule. She reports suicidal thoughts were "off and on, mostly on," but says "9 times out of 10 I would call someone and they would talk me down." On the day of presentation, she states there was a trigger that caused her to feel suicidal, but will not disclose it, stating "it seems trivial." She has a friend that she usually calls "to talk me down," but did not call her as "I just didn't want to bother her anymore." She says she contacted the [facility] suicide hotline via chat, "but they weren't helpful." She then overdosed on 3 of her pain medications, stating she thought "it would be lethal." She states she took the remainder of a bottle of oxycodone (but still had a full bottle she had not opened yet), as well as Celebrex and tramadol, and then went to lie down. She then "did what I always do, called my mother, called my sister, I just wanted to stay with them until I ." She is evasive when asked how she feels about the fact that she is still alive, pausing for a long time and then said "well, I don't like being in here, it just gives me anxiety, see I'm crying for no reason!" She did not appear to be crying, and there were no tears. She then voices many complaints about her hospitalization on the medical floor, stating they were "starving me," as the sandwiches were too small, people were rude to her, and "one time I was having a seizure and one of the nurses said maybe she took something from her bag." She states she has been diagnosed with nonepileptic seizures and they have been occurring several times a week to multiple times a day. She had been on lamotrigine from neurology when she was here last year, but she says they stopped it when they determined she did not have a seizure disorder. Her goal is to be discharged, and she states "people just think I'm unstable because I tried to kill myself, but that's not really true." She states that she was just starting to get to know her roommates, and does not want to leave school to attend [employer] as then she will miss out on that, and "my friend is doing PHP and says it's all online and not good." She says her mother is purchasing that ticket to come here from [facility], but she is not sure when she will be arriving or how long she will be staying. She is only taking 3 classes, but says she is not doing well in school as she has been missing a lot. Past Psychiatric History Previous Psych History: First started treatment in 2016 while at [facility]; saw a therapist and psychiatrist. Thinks she was diagnosed with "psychosis and major depressive." H/o poor treatment adherence. Current Diagnoses and Medication List from Dr. Valverde - patient's outpatient psychiatrist: Diagnoses: - Major depressive disorder, recurrent, moderate - Anxiety disorder, unspecified - Insomnia, unspecified - Borderline personality disorder Current Medication List: - Klonopin 0.5mg BID - Cymbalta 20mg qAM - Buspirone 10mg TID Current Psychiatric Diagnosis: Depression NOS, borderline personality disorder Outpatient Services: Psychiatrist: Dr. Valverde (previously saw Dr. Soliz, psychiatrist at [facility]) Therapist: Dr. Abena Bashir in [place], [place] (states she was referred to her from her hospitalization at [facility] in August, but therapist stated she did not start seeing her until October?) Previous Psych Admissions: 6 total hospitalizations: First 2 were at [facility], the third one here, [facility] in May or June, and [facility] again in August. [facility] 01/2019 following an intentional overdose (started to overdose, took 2- 5 pills, then stopped). Seen on the consultation service 04/08/2019 for nonepileptic seizures while admitted medically Seen in the ER 04/12/2019 after she presented for "feeling funny" after chewing a tramadol pill, which she said she did to numb emotional pain. She was discharged to outpatient follow-up. Seen in the ER 04/21/2019 due to hitting herself in the chest until she became short of breath and had chest pain, while on the phone with her sister, who called police. She was discharged to outpatient treatment. Do You Have Access To A Gun?: No History of Previous Suicide Attempt: Yes Describe Attempts in the Past: OD 01/2019, cut wrists 2018, toxic ingestion age 15, overdoses at ages 16, and 17 Past Medication Trials: Include but not limited to: 1. Zoloft 2. Lamictal - started for seizures 3. Lexapro 4. Risperdal 5. Cymbalta 6. Klonopin 7. Buspirone Additional Notes: First suicide attempt at age 15 by ingesting a combination of lemonade and bleach. She sent a video of herself drinking it to a friend, who called police. 2 suicide attempts by overdosing on pain medications (ages 16 and 17). She did not tell anyone after the second suicide attempt, but contacted her unit leader after the third attempt, who called police. She was hospitalized at [facility] after the first and third attempts, and stated she "hated" the experience. Cut her wrist in 2018, but stated it was too painful to actually kill herself. Allergies Allergy/AdvReac Type Severity Reaction Status Date / Time No Known Allergies Allergy Verified 10/24/19 20:51 Home Medications Home Medications Medication Instructions Recorded Confirmed Type clonazepam [Klonopin] 0.5 mg PO BID 10/22/19 11/23/19 History lorazepam [Ativan] 0.5 mg PO Q6H PRN #6 tab 11/14/19 11/18/19 Rx celecoxib 100 mg PO BID 11/18/19 11/18/19 History duloxetine 20 mg PO QAM 11/18/19 11/23/19 History folic acid 2 mg PO DAILY 11/18/19 11/18/19 History oxycodone 5 mg PO Q8H PRN 11/18/19 11/18/19 History tramadol 50 mg PO Q12 PRN 11/18/19 11/18/19 History buspirone 10 mg PO TID 11/23/19 11/23/19 History Family History Family History of: None Alcohol History Hx of Alcohol Use Over the Past 12 Months: Yes AUDIT Total Score: 3 Smoking Use Have You Smoked or Used Tobacco Products in the Last 30 Days: No Smoking Status: Never smoker Substance History Hx of Prescription Med Misuse Over the Past 12 Months: Yes Hx of Over the Counter Med Misuse Over the Past 12 Months: No Hx of Inhalent Misuse Over the Past 12 Months: No Hx of Organic Substance Use Over the Past 12 Months: No Hx of Illegal Substances/Street Drug Use Over Past 12 Months: No Problems as a Result of Past Substance Use: Attempted Suicide Personal History Living Arrangements: Apartment Living Arrangements Comments: In [place] roommates Born In: [facility] Childhood: Grew up in [place], raised by both parents, who still live in [place]. Has 6 siblings, but doesn't speak to any of them except one sister "because my dad doesn't know how to keep a stable relationship." States father had a previous marriage with 2 children, then her mother and had 3 children, then left her mother and had another family. She doesn't have contact with her father, but talks to her mother. Highest Grade Completed: High School Graduate Highest Grade Completed Comment: Senior at [employer], studying [employer] Marital Status: Single Number Of Children: none Beliefs That Will Affect Care: None Hx Traumatic Life Events: Yes Psychological Trauma History Comment: per records she has reported childhood trauma but did not want to disclose Patient History Medical History (Updated 11/20/19 @ 16:18 by Mohini Vance DO) Borderline personality disorder Pneumonia Seizure-like activity Sickle cell anemia Sickle cell crisis Surgical History No pertinent past surgical history Family History Mother Hypertension Father Ulcer Other Family history non-contributory Social History Smoking Status: Never smoker Second Hand Exposure: No; Hx Alcohol Use: Yes Alcohol type: beer, wine and hard liquor Hx Substance Use: Yes Last Used Substance: Just Prior to Arrival Substance Use Type Other:: Unknown; Patient sedated & unable to answer Preferred Language: Welsh Communication Ability: Effective Public Relations Account Executive Required: No Beliefs That Will Affect Care: None marital status: Single Current Living Situation: Other Current Living Situation Comment: Roommates 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 Jono Thompson. I accept that physical as correct/medical clearance for the inpatient physical exam. Results & Data ([facility]) Current Inpatient Medications Current Inpatient Medications: Current Inpatient Medications Acetaminophen (Acetaminophen 325 Mg Tab) 650 mg PO Q4H PRN PRN Reason: Headache or Minor Fever Stop: 12/26/19 15:04 Al Hydrox/Mg Hydrox/Simethicone (Aluminum/Magnesium Susp 30 Ml Udc) 30 ml PO Q4H PRN PRN Reason: GI Upset Stop: 12/26/19 15:04 Bismuth Subsalicylate (Bismuth Subsalicylate Liqd 236 Ml) 15 ml PO PRN PRN PRN Reason: Loose Stool Stop: 12/26/19 15:04 Buspirone HCl (Buspirone 5 Mg Tab) 10 mg PO TID WALTER Stop: 12/26/19 20:59 Last Admin: 11/26/19 22:25 Dose: 10 mg Documented by: Celecoxib (Celecoxib 100 Mg Cap) 100 mg PO BID WALTER Stop: 12/26/19 20:59 Last Admin: 11/26/19 22:25 Dose: 100 mg Documented by: Duloxetine HCl (Duloxetine Hcl 20 Mg Cap) 20 mg PO QAM WALTER Stop: 12/27/19 08:59 Folic Acid (Folic Acid 1 Mg Tab) 2 mg PO DAILY WALTER Stop: 12/27/19 08:59 Hydroxyzine HCl (Hydroxyzine Hcl 25 Mg Tab) 50 mg PO HSZ PRN PRN Reason: Insomnia Stop: 12/26/19 15:04 Hydroxyzine HCl (Hydroxyzine Hcl 25 Mg Tab) 25 mg PO Q4H PRN PRN Reason: Anxiety Stop: 12/26/19 15:04 Last Admin: 11/26/19 20:38 Dose: 25 mg Documented by: Magnesium Hydroxide (Magnesium Hydroxide Susp 30 Ml Udc) 30 ml PO DAILY PRN PRN Reason: Constipation Stop: 12/26/19 15:04 Oxycodone HCl (Oxycodone Hcl Ir 5 Mg Tab (Immediate Release)) 5 mg PO Q8 PRN PRN Reason: Pain Stop: 12/10/19 16:03 Sodium Chloride (Sodium Chloride 0.65% Na Soln 45 Ml ([place])) 1 - 2 sprays NA PRN PRN PRN Reason: Nasal Dryness/Congestion Stop: 12/26/19 15:04 Tramadol HCl (Tramadol Hcl 50 Mg Tablet) 50 mg PO Q12H PRN PRN Reason: Pain Stop: 12/26/19 16:01
[2019-11-27] MEDS: CELECOXIB 100 MG CAP PO SCH ×2 (10:06→21:33)
[2019-11-27] MEDS: busPIRone 5 MG TAB PO SCH ×3 (10:06→21:33)
[2019-11-27] MEDS: FOLIC ACID 1 MG TAB PO SCH (10:07)
[2019-11-27] MEDS: DULoxetine HCL 20 MG CAP PO SCH (10:07)
[2019-11-27] MEDS: oxyCODONE HCL IR 5 MG TAB (IMMEDIATE RELEASE) PO PRN ×2 (14:03→22:20)
[2019-11-27] MEDS: traMADol HCL 50 MG TABLET PO PRN (16:43)
[2019-11-27] MEDS: ACETAMINOPHEN 325 MG TAB PO PRN (20:45)
[2019-11-28] MEDS: ACETAMINOPHEN 325 MG TAB PO PRN (02:16)
[2019-11-28] MEDS: hydrOXYzine HCl 25 MG TAB PO PRN (02:17)
--- NOTE | 2019-11-28 08:57 | Psychiatric Progress Note ---
Date of Service November 28, 2019 Impression / Recommendations Impression 19-year-old [place]an female [employer] [facility] 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 She will not discuss the triggering stressor, but told the social professionals it was related to an interaction with a male friend. She has been struggling to keep up with her schoolwork due to both mental health issues and as well as having medical problems related to sickle cell anemia and nonepileptic seizures. She has had at least 4 psychiatric hospitalizations in the past year, and both her sister and therapist expressed concerns about her immediate safety. On the medical floor she was behaviorally challenging, agitated, provocative, and uncooperative, receiving multiple IM medications, trying to elope, and repeatedly trying to get people to bring contraband items. She is unwilling for a higher level of outpatient treatment (therapist has recommended IOP or PHP), but states her mother and sister will be coming to stay with her and is willing for them to assist with medication monitoring/safety. Will need to have a family meeting with them as well as coordination with the University regarding her academic issues. Inpatient treatment is medically necessary due to the severity of symptoms and risk for suicide if discharged. She is on a 302 involuntary commitment. (1) Borderline personality disorder: 11/26 -clear and consistent boundaries. -Care has been coordinated with her outpatient therapist, Dr. Abena Bashir, and we will need to touch base with her next week as the patient is declining recommendations for higher level of outpatient care (PHP). She indicated unwillingness to resume seeing the patient until she has completed a program and is more stable. 11/27 -patient reports chronic SI and would benefit from DBT. Consider referral to the [facility] [employer] [facility] psych clinic, although she will likely have to be placed on a wait list. (2) Depression: 11/26 -education provided on her diagnosis and the treatment recommendations, including medications and therapy. Reviewed that medications will not work if she is only taking them 2 to 3 days a week, and that in some instances, this can worsen symptoms. Encouraged her to work on a plan to improve adherence, including a daily routine, regular sleep-wake cycle/times, and ideally identify someone to assist her in monitoring her medications. -Continue duloxetine 20 mg daily. Records reviewed from Dr. Valverde. -Family meeting with sister and mother. Mother reportedly coming from [place], unclear when or for how long. -Encourage group attendance of participation. Work on healthy coping skills and discharge safety plan. -Continue involuntary commitment and gather information toward the need for ongoing involuntary treatment. -Treatment recommendations at this time are to withdraw from school and attend PHP or residential treatment, as her symptoms are so severe that she is not able to function, be successful in school, and is persistently suicidal. Patient is unfortunately unwilling to follow these recommendations, and we will need to have a meeting with [facility] Office of Student Care and Advocacy to determine her standing in school and how they can help support her. 11/27 -patient would like to remain in school, will need to contact the University tomorrow to clarify her academic standing and inform them of hospitalization and need to make up missed work. -Schedule family meeting with mother and sister for discharge planning. Patient is agreeing to allow them to keep all of her medications locked and secured, filling a weekly pillbox, which will both assist with improved adherence to medications and also limit her access to large amounts of pills/risk of impulsive overdose. -Reviewed strategies to improve medication adherence at home. Encourage patient to attend and participate in groups, and work on her discharge safety plan. -Continue duloxetine 20 mg daily and buspirone 10 mg 3 times daily, patient asked multiple questions about these medications; discussed mechanism of action, indications, side effects, and what to expect if they are working. Discussed importance of taking them daily for maximum benefit. 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 (3) Sickle cell anemia: 11/26 -continue home doses of celecoxib, oxycodone and tramadol as needed. Attempt to determine what medications the patient still has left at home, and will contact Dr. Madrigal at [facility] on Friday to coordinate care and involve him in the safety plan regarding her medications. Ideally, somebody would keep all of her medications locked and dispense them to her daily, but in the absence of this level of supervision, would recommend she not have access to medications that are dangerous in overdose, and only receive 1 week of medications at a time. (4) Pseudoseizures: 11/26 -patient reports more frequent nonepileptic seizures lately, likely triggered by her psychosocial stressors. Recommendations are for withdrawal from school and partial hospitalization and/or residential treatment, as she is not sufficiently stable to be successful, but unfortunately she is unwilling for this. 11/27 -no seizure-like activity here. Risk Factors Assessment Male: No : No Do You Have Access To A Gun?: No Health Problems: Yes Mental Health Diagnoses: Yes Substance Use Disorders: No Previous Attempt: Yes Previous Psychiatric Hospitalization: Yes Hopelessness: Yes Smoker: No Protective Factors Assessment Druze Beliefs: No : No Responsible for Young Children: No Employed: No Stable Relationships: No Supportive Family: Yes Interval History Identifying Information ADÁN PEOPLES is a 19-year-old F who goes by "[employer]," lives in [place] alone, has a history of depression, BDP, sickle cell anemia, and nonepileptic seizures, and was admitted on 11/26/19 18:06 on a 302 involuntary commitment for suicide attempt by overdose. Chief Complaint " Okay". Review of Systems Sleep Information Total Hours of Sleep: 5.5 Meal Information Percent Meal Consumed - Breakfast: 75 Percent Meal Consumed - Lunch: 80 Percent Meal Consumed - Dinner: 50 Nutrition Comment: pt. ate additional food after dinner Subjective Subjective Patient was seen & assessed and interval progress reviewed with nursing and social work. Staff report she attended some groups and refused others, told the social professionals that her suicide attempt was triggered by a fight with a male friend but would not discuss it further, and received multiple prns. On my assessment, she states her mood is "good, yeah," denies suicidal thoughts, and that she is feeling more hopeful about the future, thinking "there's lot of things I wanna do before I ," like have a visit from her friend who is coming from [place] next weekend, clothes she wants to wear, and her earring collection. She states she has been spending her time reading, and spoke with her sister who told her she would be coming from [place] to stay with the patient, as the patient's mother is unable to come here until December. She does not want to do a partial program, but wants to stay in school and have family stay with her, while getting outpatient treatment. She is agreeable to allowing family to manage her medications, discussed the plan to keep all pills locked and dispense them into a med minder, which would also help her with compliance. She discussed her struggles with adherence to medications, stating her erratic sleep schedule is a contributor, and she often cannot recall if she already took her medicine that day or not, so thinks a weekly pillbox would be helpful. She reports poor sleep last night, disrupted by bad dreams and pain, thinks the beds here are part of the problem. She states she has missed a lot of school, and that 1 of her professors has been supportive and even dropped work off for her when she was on the medical floor, but another professor "is giving me zeros for everything." She would like to talk to the office of student care and advocacy tomorrow. She has multiple questions about duloxetine and buspirone, which were started by her outpatient psychiatrist, including what they are for and how they work. We discussed side effects to look for, the importance of taking them daily for maximum benefit, and potential for drug drug interactions, including serotonin syndrome, as she is also on tramadol as needed. Physical Exam Psychiatric Orientation: alert and cooperative Apperance: appropriately dressed, appropriately groomed and appeared stated age Eye Contact: good eye contact Motor Behavior: no abnormal motor movements Speech: normal rate/rhythm/volume of speech Affect: euthymic affect and mood congruent with affect Mildly irritable at times, with sarcastic tone or inappropriate smiling. "Good, yeah." Thought Process: goal directed thought process Thought Content: reality based without delusions Suicidal Thoughts: denies suicidal thoughts Homicidal Thoughts: denies homicidal thoughts Hallucinations: no auditory hallucinations and no visual hallucinations Cognition: recent memory grossly intact, attention grossly intact and language grossly intact Estimated Intelligence: consistent with education level Insight: + impaired insight Judgement: + impaired judgement Vital Signs (Past 24 Hours) Last Vital Signs Temp 36.6 C 11/28/19 06:46 Pulse 88 11/28/19 06:47 Resp 16 11/28/19 06:46 BP 94/60 L 11/28/19 06:47 Pulse Ox 94 11/26/19 20:05 Results & Data ([facility]) Current Inpatient Medications Current Inpatient Medications: Current Inpatient Medications Acetaminophen (Acetaminophen 325 Mg Tab) 650 mg PO Q4H PRN PRN Reason: Headache or Minor Fever Stop: 12/26/19 15:04 Last Admin: 11/28/19 02:16 Dose: 650 mg Documented by: Al Hydrox/Mg Hydrox/Simethicone (Aluminum/Magnesium Susp 30 Ml Udc) 30 ml PO Q4H PRN PRN Reason: GI Upset Stop: 12/26/19 15:04 Bismuth Subsalicylate (Bismuth Subsalicylate Liqd 236 Ml) 15 ml PO PRN PRN PRN Reason: Loose Stool Stop: 12/26/19 15:04 Buspirone HCl (Buspirone 5 Mg Tab) 10 mg PO TID WALTER Stop: 12/26/19 20:59 Last Admin: 11/27/19 21:33 Dose: 10 mg Documented by: Celecoxib (Celecoxib 100 Mg Cap) 100 mg PO BID WALTER Stop: 12/26/19 20:59 Last Admin: 11/27/19 21:33 Dose: 100 mg Documented by: Duloxetine HCl (Duloxetine Hcl 20 Mg Cap) 20 mg PO QAM WALTER Stop: 12/27/19 08:59 Last Admin: 11/27/19 10:07 Dose: 20 mg Documented by: Folic Acid (Folic Acid 1 Mg Tab) 2 mg PO DAILY WALTER Stop: 12/27/19 08:59 Last Admin: 11/27/19 10:07 Dose: 2 mg Documented by: Hydroxyzine HCl (Hydroxyzine Hcl 25 Mg Tab) 50 mg PO HSZ PRN PRN Reason: Insomnia Stop: 12/26/19 15:04 Last Admin: 11/28/19 02:17 Dose: 50 mg Documented by: Hydroxyzine HCl (Hydroxyzine Hcl 25 Mg Tab) 25 mg PO Q4H PRN PRN Reason: Anxiety Stop: 12/26/19 15:04 Last Admin: 11/26/19 20:38 Dose: 25 mg Documented by: Magnesium Hydroxide (Magnesium Hydroxide Susp 30 Ml Udc) 30 ml PO DAILY PRN PRN Reason: Constipation Stop: 12/26/19 15:04 Oxycodone HCl (Oxycodone Hcl Ir 5 Mg Tab (Immediate Release)) 5 mg PO Q8 PRN PRN Reason: Pain Stop: 12/10/19 16:03 Last Admin: 11/27/19 22:20 Dose: 5 mg Documented by: Sodium Chloride (Sodium Chloride 0.65% Na Soln 45 Ml ([place])) 1 - 2 sprays NA PRN PRN PRN Reason: Nasal Dryness/Congestion Stop: 12/26/19 15:04 Tramadol HCl (Tramadol Hcl 50 Mg Tablet) 50 mg PO Q12H PRN PRN Reason: Pain Stop: 12/26/19 16:01 Last Admin: 11/27/19 16:43 Dose: 50 mg Documented by: Mental Health & Subst Abuse Tx Therapist Name of Therapist: Abena Whalen (1) Sickle cell anemia Sickle-cell associated disorders: without crisis Qualified Code(s): D57.1 - Sickle-cell disease without crisis (2) Depression Active/Remission status: currently active Depression Type: major depressive disorder Major depression episode severity: severe Major depression recurrence: recurrent Psychotic features: without psychotic features Qualified Code(s): F33.2 - Major depressive disorder, recurrent severe without psychotic features
[2019-11-28] MEDS: busPIRone 5 MG TAB PO SCH ×3 (09:07→21:30)
[2019-11-28] MEDS: CELECOXIB 100 MG CAP PO SCH ×2 (09:07→21:30)
[2019-11-28] MEDS: DULoxetine HCL 20 MG CAP PO SCH (09:07)
[2019-11-28] MEDS: FOLIC ACID 1 MG TAB PO SCH (09:07)
[2019-11-28] MEDS: oxyCODONE HCL IR 5 MG TAB (IMMEDIATE RELEASE) PO PRN ×2 (11:53→20:16)
[2019-11-28] MEDS: traMADol HCL 50 MG TABLET PO PRN (17:01)
[2019-11-29] MEDS: FOLIC ACID 1 MG TAB PO SCH (08:59)
[2019-11-29] MEDS: DULoxetine HCL 20 MG CAP PO SCH (08:59)
[2019-11-29] MEDS: CELECOXIB 100 MG CAP PO SCH ×2 (08:59→20:38)
[2019-11-29] MEDS: busPIRone 5 MG TAB PO SCH ×3 (08:59→20:38)
--- NOTE | 2019-11-29 11:49 | Psychiatric Progress Note ---
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 She will not discuss the triggering stressor, but told the social work manager it was related to an interaction with a male friend. She has been struggling to keep up with her schoolwork due to both mental health issues and as well as having medical problems related to sickle cell anemia and nonepileptic seizures. She has had at least 4 psychiatric hospitalizations in the past year, and both her sister and therapist expressed concerns about her immediate safety. On the medical floor she was behaviorally challenging, agitated, provocative, and uncooperative, receiving multiple IM medications, trying to elope, and repeatedly trying to get people to bring contraband items. She is unwilling for a higher level of outpatient treatment (therapist has recommended IOP or PHP), but states her mother and sister will be coming to stay with her and is willing for them to assist with medication monitoring/safety. Family meeting held via phone with mother and sister today, some progress made with discussing safety planning and higher level of outpatient support. Will need to coordinate with the [employer] regarding her academic issues. Inpatient treatment is medically necessary due to the severity of symptoms and risk for suicide if discharged. She is on a 302 involuntary commitment. (1) Borderline personality disorder: 11/26 -clear and consistent boundaries. -Care has been coordinated with her outpatient therapist, Dr. Abena Bashir, and we will need to touch base with her next week as the patient is declining recommendations for higher level of outpatient care (PHP). She indicated unwillingness to resume seeing the patient until she has completed a program and is more stable. 11/27 -patient reports chronic SI and would benefit from DBT. Consider referral to the [facility] psych clinic, although she will likely have to be placed on a wait list. 11/28 - Complete referral to the [facility] for DBT, anticipate patient will be placed on wait list - Pt agreed to IOP referral during family meeting with mother and sister (2) Depression: 11/26 -education provided on her diagnosis and the treatment recommendations, including medications and therapy. Reviewed that medications will not work if she is only taking them 2 to 3 days a week, and that in some instances, this can worsen symptoms. Encouraged her to work on a plan to improve adherence, including a daily routine, regular sleep-wake cycle/times, and ideally identify someone to assist her in monitoring her medications. -Continue duloxetine 20 mg daily. Records reviewed from Dr. Valverde. -Family meeting with sister and mother. Mother reportedly coming from [place], unclear when or for how long. -Encourage group attendance of participation. Work on healthy coping skills and discharge safety plan. -Continue involuntary commitment and gather information toward the need for ongoing involuntary treatment. -Treatment recommendations at this time are to withdraw from school and attend PHP or residential treatment, as her symptoms are so severe that she is not able to function, be successful in school, and is persistently suicidal. Patient is unfortunately unwilling to follow these recommendations, and we will need to have a meeting with [facility] Office of Student Care and Advocacy to determine her standing in school and how they can help support her. 11/27 -patient would like to remain in school, will need to contact the University tomorrow to clarify her academic standing and inform them of hospitalization and need to make up missed work. -Schedule family meeting with mother and sister for discharge planning. Patient is agreeing to allow them to keep all of her medications locked and secured, filling a weekly pillbox, which will both assist with improved adherence to medications and also limit her access to large amounts of pills/risk of impulsive overdose. -Reviewed strategies to improve medication adherence at home. Encourage patient to attend and participate in groups, and work on her discharge safety plan. -Continue duloxetine 20 mg daily and buspirone 10 mg 3 times daily, patient asked multiple questions about these medications; discussed mechanism of action, indications, side effects, and what to expect if they are working. Discussed importance of taking them daily for maximum benefit. -Clonazepam was discontinued on the medical floor, would not recommend prescribing her benzodiazepines given her frequent use of multiple opiate medications for chronic pain issues, as well as the risk of overdose, [employer] depression, and drug drug interactions. 11/28 - Continue current medication regimen, as patient denies need for adjustments at this time - focus is primarily on safety planning and encouraging patient to consider higher level of outpatient services - Pt denied SI today - Family meeting held via phone with sister and mother. Pt agreed to IOP, so will attempt to place referrals. Pt's roommate also verbalized willingness to lock up patient's medications and assist with safety planning (3) Sickle cell anemia: 11/26 -continue home doses of celecoxib, oxycodone and tramadol as needed. Attempt to determine what medications the patient still has left at home, and will contact [place] [facility] to coordinate care and involve him in the safety plan regarding her medications. Ideally, somebody would keep all of her medications locked and dispense them to her daily, but in the absence of this level of supervision, would recommend she not have access to medications that are dangerous in overdose, and only receive 1 week of medications at a time. (4) Pseudoseizures: 11/26 -patient reports more frequent nonepileptic seizures lately, likely triggered by her psychosocial stressors. Recommendations are for withdrawal from school and partial hospitalization and/or residential treatment, as she is not sufficiently stable to be successful, but unfortunately she is unwilling for this. 11/27 -no seizure-like activity here. Risk Factors Assessment Male: No : No Do You Have Access To A Gun?: No Health Problems: Yes Mental Health Diagnoses: Yes Substance Use Disorders: No Previous Attempt: Yes Previous Psychiatric Hospitalization: Yes Hopelessness: Yes Smoker: No Protective Factors Assessment Jain Beliefs: No : No Responsible for Young Children: No Employed: No Stable Relationships: No Supportive Family: Yes Interval History Identifying Information ADÁN PEOPLES is a 19-year-old F who goes by "[employer]," lives in [place] alone, has a history of depression, BDP, sickle cell anemia, and nonepileptic seizures, and was admitted on 11/26/19 18:06 on a 302 involuntary commitment for suicide attempt by overdose. Chief Complaint "I'm fine." Review of Systems Notes Constitutional: denied Cardiovascular: denied Respiratory: denied Gastrointestinal: denied Neurological: denied Psychiatric: denies symptoms other than stated above Total of at least 10 systems reviewed, pertinent positives as above and in HPI. Sleep Information Total Hours of Sleep: 7.75 Sleep Comments: pt on q-15 minute checks Meal Information Percent Meal Consumed - Breakfast: 75 Percent Meal Consumed - Lunch: 75 Percent Meal Consumed - Dinner: 100 Nutrition Comment: pt. ate additional food after dinner Subjective Subjective Patient was seen & assessed and interval progress reviewed with treatment team. Staff report the patient has been cooperative over the weekend. Pt has scheduled a meeting with her sister and mother via phone for later this morning. Pt was seen today to assess progress since admission. Pt states that she is "fine" and denies any questions or concerns. Pt is aware of the family meeting to be held later this morning. She is able to verbalize our suggestions with regard to discharge planning. Pt reports understanding of the need to develop a safety plan, coordinate with the university, and arrange aftercare appointments. Pt denied specific talking points when it comes to her meeting. Pt was reminded of staff's specific concerns with securing medication. Pt could not answer questions regarding when her sister would be able to arrive in [place]. Pt did not seem particularly motivated to continue in more than superficial conversation despite attempts by this provider. Regardless, she denies SI or other concerns today. Physical Exam Psychiatric Orientation: alert, oriented x 3 and + guarded (uncooperative, resistant to engaging in conversation with this provider ) Apperance: appropriately dressed, appropriately groomed and appeared stated age Eye Contact: + poor eye contact (seemed to be avoiding direct eye contact ) Motor Behavior: steady gait and station and no abnormal motor movements Speech: normal rate/rhythm/volume of speech (but very brief responses to questions, nonspontaneous) This is believed to be largely behavioral, as patient admitted to "clashing" with this provider in the past Affect: + depressed affect and + flat affect; + mood not congruent with affect Mood: no depressed mood ("I'm good") Thought Process: + concrete thought process (has difficulty participating in productive conversation today) Thought Content: reality based without delusions Suicidal Thoughts: denies suicidal thoughts and denies suicidal intent Homicidal Thoughts: denies homicidal thoughts Hallucinations: no auditory hallucinations and no visual hallucinations Cognition: attention grossly intact and language grossly intact Estimated Intelligence: consistent with education level Insight: + impaired insight Judgement: + impaired judgement Vital Signs (Past 24 Hours) Last Vital Signs Temp 36.6 C 11/29/19 06:56 Pulse 78 11/29/19 06:57 Resp 16 11/29/19 06:56 BP 98/63 L 11/29/19 06:57 Pulse Ox 94 11/26/19 20:05 Results & Data ([facility] [[email or web address] Current Inpatient Medications Current Inpatient Medications: Current Inpatient Medications Acetaminophen (Acetaminophen 325 Mg Tab) 650 mg PO Q4H PRN PRN Reason: Headache or Minor Fever Stop: 12/26/19 15:04 Last Admin: 11/28/19 02:16 Dose: 650 mg Documented by: Al Hydrox/Mg Hydrox/Simethicone (Aluminum/Magnesium Susp 30 Ml Udc) 30 ml PO Q4H PRN PRN Reason: GI Upset Stop: 12/26/19 15:04 Bismuth Subsalicylate (Bismuth Subsalicylate Liqd 236 Ml) 15 ml PO PRN PRN PRN Reason: Loose Stool Stop: 12/26/19 15:04 Buspirone HCl (Buspirone 5 Mg Tab) 10 mg PO TID WALTER Stop: 12/26/19 20:59 Last Admin: 11/29/19 08:59 Dose: 10 mg Documented by: Celecoxib (Celecoxib 100 Mg Cap) 100 mg PO BID WALTER Stop: 12/26/19 20:59 Last Admin: 11/29/19 08:59 Dose: 100 mg Documented by: Duloxetine HCl (Duloxetine Hcl 20 Mg Cap) 20 mg PO QAM WALTER Stop: 12/27/19 08:59 Last Admin: 11/29/19 08:59 Dose: 20 mg Documented by: Folic Acid (Folic Acid 1 Mg Tab) 2 mg PO DAILY WALTER Stop: 12/27/19 08:59 Last Admin: 11/29/19 08:59 Dose: 2 mg Documented by: Hydroxyzine HCl (Hydroxyzine Hcl 25 Mg Tab) 50 mg PO HSZ PRN PRN Reason: Insomnia Stop: 12/26/19 15:04 Last Admin: 11/28/19 02:17 Dose: 50 mg Documented by: Hydroxyzine HCl (Hydroxyzine Hcl 25 Mg Tab) 25 mg PO Q4H PRN PRN Reason: Anxiety Stop: 12/26/19 15:04 Last Admin: 11/26/19 20:38 Dose: 25 mg Documented by: Magnesium Hydroxide (Magnesium Hydroxide Susp 30 Ml Udc) 30 ml PO DAILY PRN PRN Reason: Constipation Stop: 12/26/19 15:04 Oxycodone HCl (Oxycodone Hcl Ir 5 Mg Tab (Immediate Release)) 5 mg PO Q8 PRN PRN Reason: Pain Stop: 12/10/19 16:03 Last Admin: 11/28/19 20:16 Dose: 5 mg Documented by: Sodium Chloride (Sodium Chloride 0.65% Na Soln 45 Ml ([place])) 1 - 2 sprays NA PRN PRN PRN Reason: Nasal Dryness/Congestion Stop: 12/26/19 15:04 Tramadol HCl (Tramadol Hcl 50 Mg Tablet) 50 mg PO Q12H PRN PRN Reason: Pain Stop: 12/26/19 16:01 Last Admin: 11/28/19 17:01 Dose: 50 mg Documented by: Mental Health & Subst Abuse Tx Therapist Name of Therapist: Abena Whalen (1) Sickle cell anemia Sickle-cell associated disorders: without crisis Qualified Code(s): D57.1 - Sickle-cell disease without crisis (2) Depression Active/Remission status: currently active Depression Type: major depressive disorder Major depression episode severity: severe Major depression recurrence: recurrent Psychotic features: without psychotic features Qualified Code(s): F33.2 - Major depressive disorder, recurrent severe without psychotic features
[2019-11-29] MEDS: hydrOXYzine HCl 25 MG TAB PO PRN (20:39)
[2019-11-30] MEDS: FOLIC ACID 1 MG TAB PO SCH (10:04)
[2019-11-30] MEDS: busPIRone 5 MG TAB PO SCH ×3 (10:04→21:13)
[2019-11-30] MEDS: DULoxetine HCL 20 MG CAP PO SCH (10:04)
[2019-11-30] MEDS: CELECOXIB 100 MG CAP PO SCH ×2 (10:04→21:14)
--- NOTE | 2019-11-30 13:48 | Psychiatric Progress Note ---
Date of Service November 30, 2019 Impression / Recommendations Impression 19-year-old [place] female [employer] 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 She will not discuss the triggering stressor, but told the social group worker it was related to an interaction with a male friend. She has been struggling to keep up with her schoolwork due to both mental health issues and as well as having medical problems related to sickle cell anemia and nonepileptic seizures. She has had at least 4 psychiatric hospitalizations in the past year, and both her sister and therapist expressed concerns about her immediate safety. On the medical floor she was behaviorally challenging, agitated, provocative, and uncooperative, receiving multiple IM medications, trying to elope, and repeatedly trying to get people to bring contraband items. She is unwilling for a higher level of outpatient treatment (therapist has recommended IOP or PHP), but states her mother and sister will be coming to stay with her and is willing for them to assist with medication monitoring/safety. Family meeting held via phone with mother and sister today, some progress made with discussing safety planning and higher level of outpatient support. Will need to coordinate with the [employer] regarding her academic issues. Inpatient treatment is medically necessary due to the severity of symptoms and risk for suicide if discharged. She is on a 302 involuntary commitment. (1) Borderline personality disorder: 11/26 -clear and consistent boundaries. -Care has been coordinated with her outpatient therapist, Dr. Abena Bashir, and we will need to touch base with her next week as the patient is declining recommendations for higher level of outpatient care (PHP). She indicated unwillingness to resume seeing the patient until she has completed a program and is more stable. 11/27 -patient reports chronic SI and would benefit from DBT. Consider referral to the [facility] psych clinic, although she will likely have to be placed on a wait list. 11/28 - Complete referral to the [facility] for DBT, anticipate patient will be placed on wait list - Pt agreed to IOP referral during family meeting with mother and sister (2) Depression: 11/26 -education provided on her diagnosis and the treatment recommendations, including medications and therapy. Reviewed that medications will not work if she is only taking them 2 to 3 days a week, and that in some instances, this can worsen symptoms. Encouraged her to work on a plan to improve adherence, including a daily routine, regular sleep-wake cycle/times, and ideally identify someone to assist her in monitoring her medications. -Continue duloxetine 20 mg daily. Records reviewed from Dr. Valverde. -Family meeting with sister and mother. Mother reportedly coming from [place], unclear when or for how long. -Encourage group attendance of participation. Work on healthy coping skills and discharge safety plan. -Continue involuntary commitment and gather information toward the need for ongoing involuntary treatment. -Treatment recommendations at this time are to withdraw from school and attend PHP or residential treatment, as her symptoms are so severe that she is not able to function, be successful in school, and is persistently suicidal. Patient is unfortunately unwilling to follow these recommendations, and we will need to have a meeting with [facility] Office of Student Care and Advocacy to determine her standing in school and how they can help support her. 11/27 -patient would like to remain in school, will need to contact the [employer] tomorrow to clarify her academic standing and inform them of hospitalization and need to make up missed work. -Schedule family meeting with mother and sister for discharge planning. Patient is agreeing to allow them to keep all of her medications locked and secured, filling a weekly pillbox, which will both assist with improved adherence to medications and also limit her access to large amounts of pills/risk of impulsive overdose. -Reviewed strategies to improve medication adherence at home. Encourage patient to attend and participate in groups, and work on her discharge safety plan. -Continue duloxetine 20 mg daily and buspirone 10 mg 3 times daily, patient asked multiple questions about these medications; discussed mechanism of action, indications, side effects, and what to expect if they are working. Discussed importance of taking them daily for maximum benefit. -Clonazepam was discontinued on the medical floor, would not recommend prescribing her benzodiazepines given her frequent use of multiple opiate medications for chronic pain issues, as well as the risk of overdose, DERMATOLOGY SPECIALIST depression, and drug drug interactions. 11/28 - Continue current medication regimen, as patient denies need for adjustments at this time - focus is primarily on safety planning and encouraging patient to consider higher level of outpatient services - Pt denied SI today - Family meeting held via phone with sister and mother. Pt agreed to IOP, so will attempt to place referrals. Pt's roommate also verbalized willingness to lock up patient's medications and assist with safety planning 11/29 - Continue current medication regimen, encourage participation in group programming - Pt continues to deny SI - Pt agreed to IOP referrals yesterday, will pursue available options - Attempting to coordinate with outpatient therapist, who had also suggested patient required a higher level of care for outpatient psychiatric services (3) Sickle cell anemia: 11/26 -continue home doses of celecoxib, oxycodone and tramadol as needed. Attempt to determine what medications the patient still has left at home, and will contact Dr. Madrigal at [facility] on Friday to coordinate care and involve him in the safety plan regarding her medications. Ideally, somebody would keep all of her medications locked and dispense them to her daily, but in the absence of this level of supervision, would recommend she not have access to medications that are dangerous in overdose, and only receive 1 week of medications at a time. 11/29 - Message was left with [facility] to inform Dr. Madrigal of intentional overdose and provide updates regarding patient's current safety plan. Information was left, and invitation was given to return call with any additional questions or recommendations. (4) Pseudoseizures: 11/26 -patient reports more frequent nonepileptic seizures lately, likely triggered by her psychosocial stressors. Recommendations are for withdrawal from school and partial hospitalization and/or residential treatment, as she is not sufficiently stable to be successful, but unfortunately she is unwilling for this. 11/27 -no seizure-like activity here. 11/29 - There have continued to be no reports or observations of seizure-like activity on the unit Risk Factors Assessment Male: No : No Do You Have Access To A Gun?: No Health Problems: Yes Mental Health Diagnoses: Yes Substance Use Disorders: No Previous Attempt: Yes Previous Psychiatric Hospitalization: Yes Hopelessness: Yes Smoker: No Protective Factors Assessment Uatsdin Beliefs: No : No Responsible for Young Children: No Employed: No Stable Relationships: No Supportive Family: Yes Interval History Identifying Information ADÁN PEOPLES is a 19-year-old F who goes by "[employer]," lives in [place] alone, has a history of depression, BDP, sickle cell anemia, and nonepileptic seizures, and was admitted on 11/26/19 18:06 on a 302 involuntary commitment for suicide attempt by overdose. Chief Complaint "I'm fine." Review of Systems Notes Constitutional: denied Cardiovascular: denied Respiratory: denied Gastrointestinal: denied Neurological: denied Psychiatric: denies symptoms other than stated above Total of at least 10 systems reviewed, pertinent positives as above and in HPI. Sleep Information Total Hours of Sleep: 7.25 Sleep Comments: pt on q-15 minute checks Meal Information Percent Meal Consumed - Breakfast: 0 Percent Meal Consumed - Lunch: 100 Percent Meal Consumed - Dinner: 90 Nutrition Comment: pt. declined breakfast and declined to fill out her menu Subjective Subjective Patient was seen & assessed and interval progress reviewed with nursing and social work. Staff report the patient has been participating in some groups, but also spends portions of the day asleep in her room. Pt participated in a family meeting yesterday involving sister and mother, a rather limited safety plan was developed as patient's cooperation was not ideal. She did, at least, agree to referrals to an IOP for higher level of outpatient treatment. Roommate had offered to secure medications and dispense limited supply to patient. Pt was hopeful for discharge today, but as she still requires that aftercare be solidified it was felt medically necessary to keep her to the expiration of her 302 tomorrow. Pt was seen today to assess progress since admission. Pt seemed to offer only limited engagement in conversation for the duration of the visit. She reports "I'm fine" and denied any concerns she had hoped to discuss today. Pt denies feeling medication adjustments were necessary. She provided only a vague summary of her family meeting, stating "we discussed the safety plan." Pt reports her safety plan currently only includes a roommate offering to lock up her excess medications. Pt did agree to referrals for IOP, but has not yet been accepted into a program. Pt denied SI and safety concerns today. Pt was informed of treatment team concern regarding discharge prior to coordinating appropriate aftercare arrangements. She did not offer any thoughts regarding this idea. Pt was informed of plan to continue inpatient hospitalization until the expiration of her 302, in hopes that we will be able to make appropriate arrangements and coordinate with her current therapist. Pt did not offer a response to this news. Pt denied other needs and conversation was ended. It was reported to this provider that patient refused to attend the following group and instead was crying in her room. Affect was flat and not tearful for the duration of conversation with this provider. Physical Exam Psychiatric Orientation: alert, oriented x 3 and + guarded (uncooperative, very limited en gagement in conversation) Apperance: appropriately dressed, appropriately groomed and appeared stated age Eye Contact: + poor eye contact (seemed to be avoiding direct eye contact) Motor Behavior: steady gait and station and no abnormal motor movements Speech: normal rate/rhythm/volume of speech (though limited engagement in conversation, brief responses ) Affect: + flat affect and + irritable affect Mood: no depressed mood ("I'm fine") Thought Process: clear/coherent thought process and + concrete thought process Thought Content: + cognitive distortions (consistent with borderline personality traits); no hopelessness and no worthlessness Suicidal Thoughts: denies suicidal thoughts and denies suicidal intent Homicidal Thoughts: denies homicidal thoughts Hallucinations: no auditory hallucinations and no visual hallucinations Cognition: attention grossly intact and language grossly intact Estimated Intelligence: consistent with education level Insight: + limited insight Judgement: + limited judgement Vital Signs (Past 24 Hours) Last Vital Signs Temp 36.7 C 11/30/19 06:52 Pulse 87 11/30/19 06:53 Resp 16 11/30/19 06:52 BP 107/70 11/30/19 06:53 Pulse Ox 94 11/26/19 20:05 Results & Data ([facility]) Current Inpatient Medications Current Inpatient Medications: Current Inpatient Medications Acetaminophen (Acetaminophen 325 Mg Tab) 650 mg PO Q4H PRN PRN Reason: Headache or Minor Fever Stop: 12/26/19 15:04 Last Admin: 11/28/19 02:16 Dose: 650 mg Documented by: Al Hydrox/Mg Hydrox/Simethicone (Aluminum/Magnesium Susp 30 Ml Udc) 30 ml PO Q4H PRN PRN Reason: GI Upset Stop: 12/26/19 15:04 Bismuth Subsalicylate (Bismuth Subsalicylate Liqd 236 Ml) 15 ml PO PRN PRN PRN Reason: Loose Stool Stop: 12/26/19 15:04 Buspirone HCl (Buspirone 5 Mg Tab) 10 mg PO TID WALTER Stop: 12/26/19 20:59 Last Admin: 11/30/19 10:04 Dose: 10 mg Documented by: Celecoxib (Celecoxib 100 Mg Cap) 100 mg PO BID WALTER Stop: 12/26/19 20:59 Last Admin: 11/30/19 10:04 Dose: 100 mg Documented by: Duloxetine HCl (Duloxetine Hcl 20 Mg Cap) 20 mg PO QAM WALTER Stop: 12/27/19 08:59 Last Admin: 11/30/19 10:04 Dose: 20 mg Documented by: Folic Acid (Folic Acid 1 Mg Tab) 2 mg PO DAILY WALTER Stop: 12/27/19 08:59 Last Admin: 11/30/19 10:04 Dose: 2 mg Documented by: Hydroxyzine HCl (Hydroxyzine Hcl 25 Mg Tab) 50 mg PO HSZ PRN PRN Reason: Insomnia Stop: 12/26/19 15:04 Last Admin: 11/29/19 20:39 Dose: 50 mg Documented by: Hydroxyzine HCl (Hydroxyzine Hcl 25 Mg Tab) 25 mg PO Q4H PRN PRN Reason: Anxiety Stop: 12/26/19 15:04 Last Admin: 11/26/19 20:38 Dose: 25 mg Documented by: Magnesium Hydroxide (Magnesium Hydroxide Susp 30 Ml Udc) 30 ml PO DAILY PRN PRN Reason: Constipation Stop: 12/26/19 15:04 Oxycodone HCl (Oxycodone Hcl Ir 5 Mg Tab (Immediate Release)) 5 mg PO Q8 PRN PRN Reason: Pain Stop: 12/10/19 16:03 Last Admin: 11/28/19 20:16 Dose: 5 mg Documented by: Sodium Chloride (Sodium Chloride 0.65% Na Soln 45 Ml ([place])) 1 - 2 sprays NA PRN PRN PRN Reason: Nasal Dryness/Congestion Stop: 12/26/19 15:04 Tramadol HCl (Tramadol Hcl 50 Mg Tablet) 50 mg PO Q12H PRN PRN Reason: Pain Stop: 12/26/19 16:01 Last Admin: 11/28/19 17:01 Dose: 50 mg Documented by: Mental Health & Subst Abuse Tx Therapist Name of Therapist: Abena Bashir Therapist's (1) Depression Active/Remission status: currently active Depression Type: major depressive disorder Major depression episode severity: severe Major depression recurrence: recurrent Psychotic features: without psychotic features Qualified Code(s): F33.2 - Major depressive disorder, recurrent severe without psychotic features (2) Sickle cell anemia Sickle-cell associated disorders: without crisis Qualified Code(s): D57.1 - Sickle-cell disease without crisis
[2019-11-30] MEDS: oxyCODONE HCL IR 5 MG TAB (IMMEDIATE RELEASE) PO PRN (21:14)
[2019-11-30] MEDS: hydrOXYzine HCl 25 MG TAB PO PRN (22:10)
[2019-11-30] MEDS: traMADol HCL 50 MG TABLET PO PRN (22:58)
[2019-12-01] MEDS: busPIRone 5 MG TAB PO SCH (09:58)
[2019-12-01] MEDS: FOLIC ACID 1 MG TAB PO SCH (09:59)
[2019-12-01] MEDS: CELECOXIB 100 MG CAP PO SCH (09:59)
[2019-12-01] MEDS: DULoxetine HCL 20 MG CAP PO SCH (09:59)
[2019-12-01] MEDS ORDERED: DESTROY THIS MEDICATION ONE (12:51)
--- NOTE | 2019-12-01 12:52 | Discharge Summary ---
Date of Service December 01, 2019 History of Present Illness Patient initially presented to the ER 11/18/2019 tensional overdose on unknown substances, after her sister called 911 when the patient told her she had overdosed. In the ER she was screaming "kill me," asking for potassium to be given IV in order to kill her, and attempted to take cords in the room to strangle herself. She was given Haldol and Ativan IM, and admitted medically. The medications brought in with her were counted in the ER and included an oxycodone prescription from 10/20/2019 that was empty, duloxetine from 11/08/2019 that was missing #4 tablets, tramadol 50 mg from 08/06/2019 that was missing #19 tablets, clonazepam prescription from 11/08/2019 missing #7 tablets, folic acid from 08/13/2019 missing #31 tablets. She told the admitting hospitalist that she had taken Celebrex, tramadol, and oxycodone in unknown amounts, "what ever was left," in an attempt to kill herself. Her UDS was + opiates with > 10,000 nor oxycodone and elevated oxycodone and oxymorphone on confirmatory results. Psychiatric consultation was performed 11/19/2019, and the patient was focused on leaving the hospital, stated she just wanted to go back to outpatient treatment. She stated that school was a stressor, and expressed anger about her previous h ospitalization on [address] stating she did not like "female authority figures." She said she is attempted suicide because of psychiatric hospitalizations, stating "I get so behind on school while I'm in the hospital and then I feel like there is no way I can catch up, so I become suicidal." She endorsed impulsivity, noting that she had a therapy appointment the morning of her overdose, and could not explain why she had been unable to reach out for support or utilize her safety plan. Initially all psychotropic medications were held, but later on in her stay duloxetine 20 mg and buspirone 10 mg 3 times daily were resumed. She was on the medical floor for an extended period of time she was receiving IV morphine for complaints of pain. While there, her outpatient psychiatrist was contacted and case reviewed, records obtained (see below) and her therapist was contacted, who has been seeing the patient by phone since 10/27/2019, 2-3 sessions a week. She recommended a higher level of care than what she is able to provide, and stated concerns for suicide given the patient's poor judgment, impulsivity, and unpredictability. She tends to overreact to situations and struggles to control her impulses. She recommended she not be in charge of administering her own opiates. They had discussed a plan for her to attend a partial program while living with her sister in [place], or her mot her coming from [facility] to provide support. Her sister was also contacted, said she was worried about the patient, and stated that the patient sometimes forgets to take her medications, is stressed about school and not having supports. The family has been looking into obtaining a delicatessen goods stock clerk to come into the home and help her with medications, and feels she needs a higher level of care. Her sister stated that she recently moved from [place] to [place]. On 11/20/2019 she had seizure-like activity and during the response it was noted that a bag containing personal items was hidden in her bed, including opiate pain medications. She had behavioral problems, repeatedly attempting to get friends to bring in contraband items, asking to leave the hospital, demanding higher doses of IV morphine. On 11/24/2019, the patient ripped out her IV and attempted to elope from the hospital, was screaming at staff "I hate you all! You signed my warrant, now I will kill myself!" She received Haldol and Ativan IM, and was placed on a 302 warrant. 11/25/2019, she became angry when again reminded of restrictions due to suicide precautions, ripped off her heart monitor and said she was leaving the hospital, and a code mojgan was called. She again received Haldol and Ativan IM, and proceeded to lie on the floor in the hallway for close to an hour, while screaming "I hate you all, I am going to kill myself!" She had received a second injection of Haldol and Ativan. She refused p.o. medications for the rest of the day. On 11/26/2019, she was medically cleared and transferred to our unit on a 302 involuntary commitment. On my assessment today, the patient is partially cooperative with the assessment, although not necessarily forthcoming with information. She repeatedly answers questions by stating how anxious and unhappy she is to be in the hospital, instead of answering the question asked. She admits to intentionally overdosing to end her life, but when asked to describe the circumstances of the overdose, states "I don't know how to explain it." She states that for the month prior to her overdose she was "okay, [id number]," was going to therapy but was "sick a lot, seizures or sickle cell," so was missing a lot of school. She reports noncompliance with medications, stating she was only taking her pills 2 to 3 days a week, and attributes this to an erratic sleep schedule. She reports suicidal thoughts were "off and on, mostly on," but says "9 times out of 10 I would call someone and they would talk me down." On the day of presentation, she states there was a trigger that caused her to feel suicidal, but will not disclose it, stating "it seems trivial." She has a friend that she usually calls "to talk me down," but did not call her as "I just didn't want to bother her anymore." She says she contacted the [facility] suicide hotline via chat, "but they weren't helpful." She then overdosed on 3 of her pain medications, stating she thought "it would be lethal." She states she took the remainder of a bottle of oxycodone (but still had a full bottle she had not opened yet), as well as Celebrex and tramadol, and then went to lie down. She then "did what I always do, called my mother, called my sister, I just wanted to stay with them until I ." She is evasive when asked how she feels about the fact that she is still alive, pausing for a long time and then said "well, I don't like being in here, it just gives me anxiety, see I'm crying for no reason!" She did not appear to be crying, and there were no tears. She then voices many complaints about her hospitalization on the medical floor, stating they were "starving me," as the sandwiches were too small, people were rude to her, and "one time I was having a seizure and one of the nurses said maybe she took something from her bag." She states she has been diagnosed with nonepileptic seizures and they have been occurring several times a week to multiple times a day. She had been on lamotrigine from neurology when she was here last year, but she says they stopped it when they determined she did not have a seizure disorder. Her goal is to be discharged, and she states "people just think I'm unstable because I tried to kill myself, but that's not really true." She states that she was just starting to get to know her roommates, and does not want to leave school to attend [employer] as then she will miss out on that, and "my friend is doing PHP and says it's all online and not good." She says her mother is purchasing that ticket to come here from [facility], but she is not sure when she will be arriving or how long she will be staying. She is only taking 3 classes, but says she is not doing well in school as she has been missing a lot. Physical Exam Psychiatric Orientation: alert and cooperative Apperance: appropriately dressed, appropriately groomed and appeared stated age Eye Contact: + fair eye contact Motor Behavior: steady gait and station and no abnormal motor movements Speech: normal rate/rhythm/volume of speech Affect: euthymic affect Smiles inappropriately at times, for example when discussing the seriousness of her suicide attempt. "I'm fine." Thought Process: goal directed thought process Thought Content: + cognitive distortions (States she does not want to stay in the hospital longer, because if she misses more school, she will probably get suicidal.) Suicidal Thoughts: denies suicidal thoughts Homicidal Thoughts: denies homicidal thoughts Hallucinations: no auditory hallucinations Cognition: recent memory grossly intact, attention grossly intact and language grossly intact Insight: + poor insight Judgement: + poor judgement Vital Signs (Past 24 Hours) Last Vital Signs Temp 36.5 C 12/01/19 11:34 Pulse 103 H 12/01/19 11:34 Resp 16 12/01/19 11:34 BP 106/64 12/01/19 11:34 Pulse Ox 94 12/01/19 11:34 Principal Diagnosis Borderline personality disorder Status post suicide attempt by polypharmacy overdose Major depressive disorder Psychogenic nonepileptic seizures Psychiatric Data Patient was hospitalized for 5 days. On transfer from the medical service, she was continued on her home doses of duloxetine and buspirone. She reported that she had never been compliant with these medications, and had only been taking them 2-3 days a week. Benzodiazepines were discontinued due to concurrent use of multiple opiate pain medications, risk for addiction/abuse, and her recent overdose with concern for lethality with opiate/benzodiazepine combination. She attended and participated in groups and therapy, work on healthy coping skills and her discharge safety plan. She was generally resistant to treatment recommendations, focused on rapid discharge throughout her hospitalization, minimizing her suicide attempt and was superficial in her responses when trying to process this with her. She did consistently denied suicidal thoughts in the hospital, stating that she had thought of some reasons to live, including seeing her friend who is coming to visit her from [place] the following week, clothes she wants to wear, and her earring collection. Her outpatient clinicians were contacted, including her outpatient psychiatrist and Dr. Madrigal at [facility] who prescribes her opiate pain medications, and informed of her overdose and concerns about her having access to large amounts of pills. They were informed of her suicide attempt by overdose and chronic suicidality, and our recommendations that she not have access to large amounts of medications due to the risk of impulsive overdose. She initially told us that family would be coming to stay with her at discharge, and a family meeting was held with her mother (in [facility]) and sister (in [place]) by phone on 11/28/2019. They confirmed that they were coming, but her mother would not be coming until early December, and sister was planning to come in the interim, but did not have a flight booked yet. She did allow staff to contact 1 of her roommates, Bere, who agreed to keep all the medications locked and distribute them daily in the interim. Care was coordinated with her outpatient therapist, Dr. Abena Bashir, whom the patient sees via telehealth. She indicated that she felt the patient needed a higher level of care, which the inpatient team agreed with. Our recommendation was that she withdraw from school and engage in a residential or partial program, and not resume classes until she is sufficiently stable. She refused to consider this, stating that she was going to stay in school, despite having fallen behind in her classes due to the hospitalization. This was communicated with her therapist, who agreed to continue to see the patient as long as she was also participating in an intensive outpatient treatment program. 3 different programs were considered; 1 did not accept her insurance, one had a 2-month wait list, and a referral was made to the third, but no response at the time of this dictation. Day of Discharge Assessment Staff report the patient is attending and participating in groups and therapy, eating and sleeping well, taking medications as prescribed, and completing ADLs independently. She has spent a significant amount of time this morning meeting with the long term care social worker and contacting various [facility] programs to try to find one that meets her needs. She rejected 1 program because the schedule conflicted with her class schedule. There is another referral that is outstanding, and both the long term care social worker and I encouraged the patient to sign into the treatment voluntarily to allow us to develop a better discharge plan, but she is refusing to do so. She states she will set up her own outpatient treatment, and feels she is "fine" to leave the hospital. She denies suicidal thoughts, and is able to review her discharge safety plan. She states that she would feel worse if she stayed in the hospital longer, as she would miss more school which would cause increased stress and "would make me suicidal again." Reflected that if that is all it is going to take to cause her to feel suicidal, that she is proba trang not stable enough to return to school at this time, and again reviewed recommendations to withdrawal from school and engage in more intensive treatment to allow for complete recovery and better success in her academics in the future, when she is better. She is refusing to consider this. Again discussed that she may not be able to get ongoing therapy with her current therapist, as she has clearly stated the patient requires a higher level of care, and she expressed understanding. Advised her that I do not feel this is an adequate discharge plan, and that if she insists on leaving at the end of her 302 involuntary commitment this afternoon, that it will be an AMA discharge. She expressed understanding, and stated she wanted to leave the hospital. Transition of Care Transition Of Care Record: was reviewed with the patient Advance Directives Advance Directives Information Provided: Yes Advance Directives: No Mental Health Advance Directive: No Advance Directives on File: No Living Will: No Power of Leading Firefighter: No Advance Directives Reason:: Declines as Mental Health Visit. Risk Factors Assessment Respecters were mitigated by admission to the inpatient unit on an involuntary commitment, discontinuing medications with higher risk of harm in overdose/drug drug interactions, contacting her outpatient clinicians to inform them of concerns about her having access to large amounts of pills, education about the importance of adherence to medications for maximum effect on mood and anxiety, education about her diagnoses and the treatment recommendations, coordination with her outpatient therapist and other clinicians, review of recommendations to withdraw from school and engage in partial hospitalization or a residential treatment program to allow for recovery prior to resuming her academic studies (which she declined), involvement in groups and therapy, working on healthy coping skills and discharge safety plan. Patient has consistently denied suicidal thoughts here, is reporting good mood, completing ADLs independently, eating and sleeping well, and does not demonstrate symptoms of major depressive disorder. She had a family meeting with her mother and sister, both of whom are coming to stay with her to provide additional support and supervision. She has agreed to allow her roommate to keep her medications locked and dispense them daily, and her roommate has agreed to do this. Her 302 involuntary commitment expires today, and although she was encouraged to sign involuntarily, she is refusing. She does not meet criteria for ongoing involuntary commitment. She remains at increased risk of harm to herself compared to the general population, but is not at imminent risk at this time. Male: No : No Do You Have Access To A Gun?: No Health Problems: Yes Mental Health Diagnoses: Yes Substance Use Disorders: No Previous Attempt: Yes Previous Psychiatric Hospitalization: Yes Hopelessness: Yes Smoker: No Protective Factors Assessment Quaker Beliefs: No : No Responsible for Young Children: No Employed: No Stable Relationships: No Supportive Family: Yes Tobacco Cessation at Discharge Tobacco Cessation Medication Prescribed at Discharge: Not Applicable/Non-Smoker Total Time Total Time Spent: Greater Than 30 Minutes Total Time Includes: Examination of the patient, Discharge Planning and Medication Reconciliation Hospital Course (1) Borderline personality disorder: 11/26 -clear and consistent boundaries. -Care has been coordinated with her outpatient therapist, Dr. Abena Bashir, and we will need to touch base with her next week as the patient is declining recommendations for higher level of outpatient care (PHP). She indicated unwillingness to resume seeing the patient until she has completed a program and is more stable. 11/27 -patient reports chronic SI and would benefit from DBT. Consider referral to the [facility] psych clinic, although she will likely have to be placed on a wait list. 11/28 - Complete referral to the [facility] for DBT, anticipate patient will be placed on wait list - Pt agreed to IOP referral during family meeting with mother and sister 11/30 -Multiple IOP referrals made, no acceptance at this point. Recommended patient sign involuntarily to allow the development of a better discharge plan, which she is refusing. She is being discharged AMA, as she does not have a good discharge plan. Her therapist had indicated willingness to continue seeing her provided she was in IOP, but we have not been able to arrange that. She is aware of this and of our concerns, and states she will work on arranging her own treatment. -Roommate agreed to keep her medications locked and dispense them daily. Her sister and then her mother will be coming to stay with her to provide additional support and supervision (sister within the next week, and mother at the beginning of December). Her outpatient psychiatrist and physician who prescribes pain medications were both informed of her overdose and concerns about her having access to large amounts of pills. Recommend she only be prescribed 1 week of medications at a time given the high risk of impulsive overdose. -Clonazepam was discontinued; remaining pills in the bottle she brought in with her will be disposed of in the pharmacy. -Recommend DBT, which she can access through the [facility] psychological clinic. (2) Depression: 11/26 -education provided on her diagnosis and the treatment recommendations, including medications and therapy. Reviewed that medications will not work if she is only taking them 2 to 3 days a week, and that in some instances, this can worsen symptoms. Encouraged her to work on a plan to improve adherence, including a daily routine, regular sleep-wake cycle/times, and ideally identify someone to assist her in monitoring her medications. -Continue duloxetine 20 mg daily. Records reviewed from Dr. Valverde. -Family meeting with sister and mother. Mother reportedly coming from [place], unclear when or for how long. -Encourage group attendance of participation. Work on healthy coping skills and discharge safety plan. -Continue involuntary commitment and gather information toward the need for ongoing involuntary treatment. -Treatment recommendations at this time are to withdraw from school and attend PHP or residential treatment, as her symptoms are so severe that she is not able to function, be successful in school, and is persistently suicidal. Patient is unfortunately unwilling to follow these recommendations, and we will need to have a meeting with [facility] Office of Student Care and Advocacy to determine her standing in school and how they can help support her. 11/27 -patient would like to remain in school, will need to contact the University tomorrow to clarify her academic standing and inform them of hospitalization and need to make up missed work. -Schedule family meeting with mother and sister for discharge planning. Patient is agreeing to allow them to keep all of her medications locked and secured, filling a weekly pillbox, which will both assist with improved adherence to medications and also limit her access to large amounts of pills/risk of impulsive overdose. -Reviewed strategies to improve medication adherence at home. Encourage patient to attend and participate in groups, and work on her discharge safety plan. -Continue duloxetine 20 mg daily and buspirone 10 mg 3 times daily, patient asked multiple questions about these medications; discussed mechanism of action, indications, side effects, and what to expect if they are working. Discussed importance of taking them daily for maximum benefit. -Clonazepam was discontinued on the medical floor, would not recommend prescribing her benzodiazepines given her frequent use of multiple opiate medications for chronic pain issues, as well as the risk of overdose, [employer] depression, and drug drug interactions. 11/28 - Continue current medication regimen, as patient denies need for adjustments at this time - focus is primarily on safety planning and encouraging patient to consider higher level of outpatient services - Pt denied SI today - Family meeting held via phone with sister and mother. Pt agreed to IOP, so will attempt to place referrals. Pt's roommate also verbalized willingness to lock up patient's medications and assist with safety planning 11/29 - Continue current medication regimen, encourage participation in group programming - Pt continues to deny SI - Pt agreed to IOP referrals yesterday, will pursue available options - Attempting to coordinate with outpatient therapist, who had also suggested patient required a higher level of care for outpatient psychiatric services (3) Sickle cell anemia: 11/26 -continue home doses of celecoxib, oxycodone and tramadol as needed. Attempt to determine what medications the patient still has left at home, and will contact Dr. Madrigal at [facility] on Friday to coordinate care and involve him in the safety plan regarding her medications. Ideally, somebody would keep all of her medications locked and dispense them to her daily, but in the absence of this level of supervision, would recommend she not have access to medications that are dangerous in overdose, and only receive 1 week of medications at a time. 11/29 - Message was left with [facility] to inform Dr. Madrigal of intentional overdose and provide updates regarding patient's current safety plan. Information was left, and invitation was given to return call with any additional questions or recommendations. (4) Pseudoseizures: 11/26 -patient reports more frequent nonepileptic seizures lately, likely triggered by her psychosocial stressors. Recommendations are for withdrawal from school and partial hospitalization and/or residential treatment, as she is not sufficiently stable to be successful, but unfortunately she is unwilling for this. 11/27 -no seizure-like activity here. 11/29 - There have continued to be no reports or observations of seizure-like activity on the unit Mental Health & Subst Abuse Tx Psychiatrist Name of Psychiatrist: Dr. Valverde Psychiatrist's Date of Appointment with Psychiatrist: 12/06/19 Time of Appointment with Psychiatrist: 12:30 Psychiatric Appointment Comment: telehealth, probably in person for the following appt Therapist Name of Therapist: Abena Bashir Therapist's Therapy Appointment Comment: call to schedule, message left about discharge Automobile Mechanic Radiator Name of Automobile Mechanic Radiator: [facility], Siri Jay Phone Number for Automobile Mechanic Radiator: [phone] Date of Appointment with Automobile Mechanic Radiator: 12/03/19 Time of Appointment with Automobile Mechanic Radiator: 2pm Case Management Appointment Comment: She will call you Post Discharge Appointments Primary Care Physician Name Of Family Doctor: [facility] Primary Care Provider Appointment Comment: As needed Partial or Psych Rehab Name of Partial or Psych Rehab: [facility] [phone], [facility] [phone] Time of Appointment at Partial or Psych Rehab: call to follow up regarding availability Partial or Psych Rehab Appointment Comment: Referrals [facility] -significant wait list, [facility] has records Smoking Cessation Counseling Tobacco Cessation Medication Prescribed at Discharge: Not Applicable/Non-Smoker Contact Information Discharge Discharge Address: [address] [place] [id number] Discharge Plan Discharge Items Patient Disposition: Against Medical Advice Reason For Visit: DEPRESSION Discharge Diagnosis: Borderline personality disorder Suicide attempt by overdose Activity: Per Instructions section Non-emergency contact: Primary Care Provider, Specialist, Psychiatrist and Therapist Call non-emergency contact if: you have any medication questions and your symptoms worsen Follow-up/Referrals: [place] [Primary Care Provider] - Diet: Regular Addtl Attending Provider Instructions: SPECIAL CARE INSTRUCTIONS: 1. Follow through with your scheduled aftercare appointments. If unable to keep an appointment, please call to reschedule. -We recommended withdraw from school and partial hospitalization or intensive outpatient treatment, which he declined. -Referrals were made for [facility] programs, but no acceptance at the time of discharge. We recommended you sign involuntarily to allow the development of a better discharge plan, which you declined. This is an AGAINST MEDICAL ADVICE discharge. 2. Take your medication only as prescribed. Medication should not be changed or stopped without the approval of your doctor. In the event of worsening symptoms or concerns about side effects, contact your doctor immediately. 3. Utilize new healthy coping skills, anger management skills, and stress management skills learned during your hospitalization. Journal feelings and process them with a support person. Identify stressors or situations that may result in relapse, deterioration or inappropriate behaviors and develop a plan to deal with those issues. 4. If your coping skills are ineffective and you are in crisis, contact your outpatient providers for direction. If unable to reach your providers, please call the [facility] CRISIS LINE AT , go to the [facility] walk-in center at [address], [place], or go to the closest Emergency Room. 5. Avoid alcohol and un-prescribed drugs. 6. You have been provided with the Mental Health Advance Directives Pamphlet for your review. AFTERCARE APPOINTMENTS: * Please call your insurance company prior to your scheduled appointment to confirm your aftercare providers are covered. Take your insurance information to your appointments. WHO TO CALL AND WHEN: Medical Emergencies: For questions or emergencies related to your hospital stay, please contact the Inpatient Behavioral Health Unit at [phone]. A psychiatric assistant is on-call 09/09 for the Behavioral Health Unit for e mergencies At any time you feel your situation is an emergency, you may also call 911 immediately. Pending Studies at Discharge: No Stand-Alone Forms: My [place], Smoking Cessation Medications and DC Order Prescriptions: Continued celecoxib 100 mg capsule 100 mg PO BID RF: 0 duloxetine 20 mg capsule,delayed release(DR/EC) 20 mg PO QAM RF: 0 oxycodone 5 mg tablet 5 mg PO Q8H PRN (Reason: Pain, Severe) RF: 0 tramadol 50 mg Tablet 50 mg PO Q12 PRN (Reason: Pain) RF: 0 folic acid 1 mg Tablet 2 mg PO DAILY RF: 0 buspirone 10 mg Tablet 10 mg PO TID RF: 0 Discontinued clonazepam [Klonopin] 0.5 mg tablet 0.5 mg PO BID RF: 0 lorazepam [Ativan] 1 mg tablet 0.5 mg PO Q6H PRN (Reason: anxiety) Qty: 6 RF: 0 Discharge Orders: Left Against Medical Advice (Routine); Ordered 12/01/19 Ordered By: Magda Caputo Admission Data Admit Date/Time: 11/26/19 18:06 Attending Provider: Magda Caputo Admit Provider: Kunal Roland Primary Care Provider: [facility] Other Interventions: Discharge Summary Assessment (RN) Last Done: 12/01/19 11:34 PSY Interdisciplinary Discharge Planning Last Done: 12/01/19 12:27 Coding Level of Care Code 98165 D/C day mgmt > 30 min Diagnoses Borderline personality disorder F60.3 Depression F33.2 Active/Remission status: currently active Depression Type: major depressive disorder Major depression episode severity: severe Major depression recurrence: recurrent Psychotic features: without psychotic features 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
== END 2019-12-01 12:56 | disposition left against medical advice (07) | DRG 885 ==
LOC: 3S 18:06 → SUATTDRO 18:06

== ENCOUNTER 2019-12-07 11:40 | Inpatient (IN) ==
[2019-12-07] MEDS ORDERED: SODIUM CHLORIDE 0.9% 1000ML 1,000 ML IV ONE ×2 (12:32→18:01)
[2019-12-07] MEDS ORDERED: MoRPHine SULFATE 10 MG/ML CARP/VIAL IV STA ×2 (12:32→14:26)
[2019-12-07] MEDS ORDERED: ACETAMINOPHEN 1,000 MG/100 ML VIAL IV STA ×2 (12:32→16:48)
[2019-12-07] MEDS ORDERED: ONDANSETRON INJ 2 MG/ML 2 ML VIAL IV STA ×2 (12:32→21:15)
--- NOTE | 2019-12-07 12:38 | Emergency Department Note ---
History of Present Illness General Chief complaint: Illness Stated complaint: SICKLE CELL CRISIS Time Seen by Provider: 12/07/19 12:24 Source: patient Mode of arrival: ambulatory Limitations: no limitations History of Present Illness Provider complaint: Pain from sickle cell Onset (ago): day(s) 1 Maximum Pain Intensity: 8 Current Pain Intensity: 8 Quality: + constant Relieved By: + none Exacerbated By: + movement Associated symptoms: + denies other symptoms Treatments prior to arrival: NSAID This is a 19-year-old female with a history of sickle cell who presents the emergency department complaining of increased pain consistent with her pain crises. Patient states she follows with [facility] with a foil stamp operator down there. Patient knows that her baseline hemoglobin is around 9. Patient states often dehydration, stress, and change of season can precipitate a crisis. She believes that the recent change to colder weather has potentially precipitated her crisis today. Patient states she began not feeling well last night, and today had increased pain in her arms and legs, her back, and her abdomen. Patient states this is consistent with prior episodes of pain crisis. Patient denies any alcohol use, denies chance of . Patient states she is taking her medications as prescribed. Patient denies any fevers or chills, chest pain or trouble breathing. Patient denies any leg swelling or calf t enderness. Patient denies any nausea or vomiting, change in bowel movements, or trouble urinating. Patient denies any known exposure to anyone who has been ill or anyone with known coronavirus. Patient states she took 800 mg of Advil an hour prior to arrival. On review of EMR, pt was recently admitted for intentional overdose on her narcotic pain meds as well as other meds that she had typically had as part of her regimen for treatment of sickle cell related pain. Pt seen during a time of high acuity and national emergency pandemic while wearing PPE. Home Medications Home Medications Medication Instructions Recorded Confirmed Type celecoxib 100 mg PO BID 11/18/19 12/07/19 History duloxetine 20 mg PO QAM 11/18/19 12/07/19 History folic acid 2 mg PO DAILY 11/18/19 12/07/19 History oxycodone 5 mg PO Q8H PRN 11/18/19 12/07/19 History tramadol 50 mg PO Q12 PRN 11/18/19 12/07/19 History buspirone 10 mg PO TID 11/23/19 12/07/19 History Allergies Allergy/AdvReac Type Severity Reaction Status Date / Time No Known Allergies Allergy Verified 12/07/19 13:03 Past Med/Surg History Medical History Borderline personality disorder Pneumonia Seizure-like activity Sickle cell anemia Sickle cell crisis Surgical History No pertinent past surgical history Family History Mother Hypertension Father Ulcer Other Family history non-contributory Social History Smoking Status: Never smoker Second Hand Exposure: No; Hx Alcohol Use: Yes Alcohol type: wine Hx Substance Use: No Preferred Language: Welsh Communication Ability: Effective Registration Manager Required: No Beliefs That Will Affect Care: None marital status: Single Current Living Situation: Other Current Living Situation Comment: apartment with roommates 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 current occupation: [employer] major Feels Safe at Home: Yes Assistive Devices: None Review of Systems See HPI for pertinent positives & negatives. and A total of 10 systems reviewed and were otherwise negative Physical Exam Vital Signs Vital Signs - 24 hr 12/07/19 11:54 12/07/19 13:41 12/07/19 14:41 Temperature 36.8 C Temperature Source Oral Pulse Rate 59 L Pulse Rate [Right Finger] 60 59 L Pulse Rhythm [Right Finger] Regular Pulse Strength [Right Finger] Normal Respiratory Rate 24 20 18 Respiratory Effort / Characteristics Non-Labored Non-Labored Spontaneous Non-Labored Spontaneous Respiratory Depth Normal Normal Normal Respiratory Pattern Regular Blood Pressure 136/80 Blood Pressure [Right Arm] 110/74 111/78 Blood Pressure Mean 98 Blood Pressure Mean [Right Arm] 86 89 Blood Pressure Position Sitting Pulse Oximetry 97 98 97 Oxygen Delivery Method Room Air Room Air Room Air Sepsis Recent Fever Within 48 Hours No Sepsis New/Unexplained Change in Mental Status No Sepsis Action Taken by Nursing No Action Required 12/07/19 15:35 12/07/19 16:33 12/07/19 17:49 Temperature Temperature Source Pulse Rate Pulse Rate [Right Finger] 67 74 80 Pulse Rhythm [Right Finger] Pulse Strength [Right Finger] Respiratory Rate 18 18 18 Respiratory Effort / Characteristics Non-Labored Non-Labored Respiratory Depth Normal Normal Respiratory Pattern Blood Pressure Blood Pressure [Right Arm] 118/76 124/80 111/67 Blood Pressure Mean Blood Pressure Mean [Right Arm] 90 94 81 Blood Pressure Position Pulse Oximetry 95 97 95 Oxygen Delivery Method Room Air Room Air Room Air Sepsis Recent Fever Within 48 Hours Sepsis New/Unexplained Change in Mental Status Sepsis Action Taken by Nursing 12/07/19 18:29 Temperature Temperature Source Pulse Rate Pulse Rate [Right Finger] 78 Pulse Rhythm [Right Finger] Pulse Strength [Right Finger] Respiratory Rate 18 Respiratory Effort / Characteristics Respiratory Depth Respiratory Pattern Blood Pressure Blood Pressure [Right Arm] 109/71 Blood Pressure Mean Blood Pressure Mean [Right Arm] 83 Blood Pressure Position Pulse Oximetry 98 Oxygen Delivery Method Room Air Sepsis Recent Fever Within 48 Hours Sepsis New/Unexplained Change in Mental Status Sepsis Action Taken by Nursing GENERAL: alert, uncomfortable appearing, well nourished, no distress, non-toxic EYE EXAM: normal conjunctiva, PERRL and EOM's grossly intact OROPHARYNX: no exudate, no erythema, lips, buccal mucosa, and tongue normal and mucous membranes are moist NECK: supple, no nuchal rigidity, no adenopathy, non-tender LUNGS: Clear to auscultation. Normal chest wall mechanics, no w/r/r HEART: no murmurs, S1 normal and S2 normal ABDOMEN: abdomen soft, non-tender, normo-active bowel sounds, no masses, no rebound or guarding. BACK: Back is symmetrical on inspection and there is no deformity, no midline tenderness, no CVA tenderness. SKIN: no rashes and no bruising UPPER EXTREMITIES: upper extremities are grossly normal. FROM, nml pulses b/l. No joint effusions. LOWER EXTREMITIES: No pitting edema. FROM, nml pulses b/l. No joint effusions. NEURO EXAM: Normal sensorium, cranial nerves II-XII grossly intact, normal speech, no gross weakness of arms, no gross weakness of legs. Gross sensation intact. Course Course 1500: Pt states she is still having pain. 1702: Pt states still having pain. Comfortable appearing. Pt uncomfortable going home. Multiple doses of medications in the ER today. 1950: Case discussed with Dr. Castrejon for additional inpatient management. Administered Medications Acetaminophen (Acetaminophen 325 Mg Tab) 650 mg PO Q4H PRN PRN Reason: pain/fever Stop: 01/06/20 21:54 Last Admin: 12/08/19 21:37 Dose: 650 mg Documented by: [id number] Buspirone HCl (Buspirone 5 Mg Tab) 10 mg PO TID [facility] Stop: 01/06/20 21:54 Last Admin: 12/09/19 08:08 Dose: 10 mg Documented by: [id number] Admin: 12/08/19 20:14 Dose: 10 mg Documented by: [id number] Admin: 12/08/19 13:35 Dose: 10 mg Documented by: [id number] Admin: 12/08/19 09:18 Dose: 10 mg Documented by: [id number] Admin: 12/07/19 22:47 Dose: 10 mg Documented by: [id number] Duloxetine HCl (Duloxetine Hcl 20 Mg Cap) [facility] Stop: 01/07/20 08:59 Last Admin: 12/09/19 08:07 Dose: 20 mg Documented by: [id number] Admin: 12/08/19 09:18 Dose: 20 mg Documented by: [id number] Folic Acid (Folic Acid 1 Mg Tab) 2 mg PO DAILY [facility] Stop: 01/07/20 08:59 Last Admin: 12/09/19 08:12 Dose: 2 mg Documented by: [id number] Admin: 12/08/19 09:18 Dose: 2 mg Documented by: [id number] Gabapentin (Gabapentin 100 Mg Cap) 100 mg PO TID [facility] Stop: 01/07/20 20:59 Last Admin: 12/09/19 08:07 Dose: 100 mg Documented by: [id number] Admin: 12/08/19 20:13 Dose: 100 mg Documented by: [id number] Hydroxyurea (Hydroxyurea 500 Mg Cap) 500 [facility] Stop: 01/07/20 08:59 Last Admin: 12/09/19 08:08 Dose: 500 mg Documented by: [id number] Cosigned by: [id number] Admin: 12/08/19 09:18 Dose: 500 mg Documented by: [id number] Cosigned by: [id number] Sodium Chloride (Nss 1000ml) 1,000 mls @ 15 mls/hr IV .Q24H [facility] Stop: 12/22/19 17:45 Last Admin: 12/08/19 19:29 Dose: Not Given Documented by: [id number] Sodium Chloride (Nss 1000ml) 1,000 mls @ 125 mls/hr IV .Q8H [facility] Stop: 01/07/20 18:14 Last Admin: 12/09/19 04:10 Dose: 125 mls/hr Documented by: [id number] Infusion: 12/09/19 03:29 Dose: 125 mls/hr Documented by: [id number] Admin: 12/08/19 19:29 Dose: 125 mls/hr Documented by: [id number] Morphine Sulfate (Morphine Sulfate Customer Supply Coordinator 30 Mg/30 Ml) 30 mg IV PRN PRN; Protocol PRN Reason: VEHICLE CARE SPECIALIST Pain Titration Stop: 12/22/19 17:39 Last Admin: 12/09/19 05:19 Dose: 30 mg Documented by: [id number] Cosigned by: [id number] Admin: 12/08/19 19:26 Dose: 30 mg Documented by: [id number] Cosigned by: [id number] Ondansetron HCl (Ondansetron Inj 2 Mg/Ml 2 Ml Vial) 4 mg IV Q6H PRN PRN Reason: Nausea Stop: 01/06/20 21:54 Last Admin: 12/08/19 12:14 Dose: 4 mg Documented by: [id number] Discontinued Medications Celecoxib (Celecoxib 100 Mg Cap) 100 mg PO BID [facility] Stop: 01/06/20 21:54 Last Admin: 12/08/19 09:17 Dose: 100 mg Documented by: [id number] Admin: 12/07/19 22:48 Dose: 100 mg Documented by: [id number] Sodium Chloride (Nss 1000ml) 1,000 mls @ 999 mls/hr IV .Q1H1M ONE Stop: 12/07/19 13:32 Last Infusion: 12/07/19 13:52 Dose: 0 mls/hr Documented by: [id number] Admin: 12/07/19 12:51 Dose: 999 mls/hr Documented by: [id number] Acetaminophen (Ofirmev) 1,000 mg in 100 mls @ 400 mls/hr IV NOW STA Stop: 12/07/19 12:46 Last Infusion: 12/07/19 13:51 Dose: 0 mls/hr Documented by: [id number] Admin: 12/07/19 12:51 Dose: 400 mls/hr Documented by: [id number] Acetaminophen (Ofirmev) 1,000 mg in 100 mls @ 400 mls/hr IV NOW STA Stop: 12/07/19 17:02 Last Infusion: 12/07/19 17:12 Dose: 0 mls/hr Documented by: [id number] Admin: 12/07/19 16:56 Dose: 400 mls/hr Documented by: [id number] Sodium Chloride (Nss 1000ml) 1,000 mls @ 999 mls/hr IV .Q1H1M ONE Stop: 12/07/19 19:01 Last Infusion: 12/07/19 19:48 Dose: 0 mls/hr Documented by: [id number] Admin: 12/07/19 18:25 Dose: 999 mls/hr Documented by: [id number] Sodium Chloride (1/2 Nss) 1,000 mls @ 150 mls/hr IV .Q6H40M [facility] Stop: 12/08/19 11:14 Last Infusion: 12/08/19 15:31 Dose: 0 mls/hr Documented by: [id number] Admin: 12/08/19 08:02 Dose: 100 mls/hr Documented by: [id number] Infusion: 12/08/19 08:02 Dose: 100 mls/hr Documented by: [id number] Infusion: 12/08/19 06:00 Dose: 100 mls/hr Documented by: [id number] Admin: 12/07/19 22:11 Dose: 100 mls/hr Documented by: [id number] Ibuprofen (Ibuprofen 200 Mg Tab) 400 mg PO NOW STA Stop: 12/07/19 16:49 Last Admin: 12/07/19 16:56 Dose: 400 mg Documented by: [id number] Morphine Sulfate (Morphine Sulfate 10 Mg/Ml Carp/Vial) 6 mg IV NOW STA Stop: 12/07/19 12:33 Last Admin: 12/07/19 12:52 Dose: Not Given Documented by: [id number] Morphine Sulfate (Morphine Sulfate 4 Mg/Ml 1 Ml Carp\Vial) Confirm Administered Dose 4 mg .ROUTE .STK-MED ONE Stop: 12/07/19 12:42 Last Admin: 12/07/19 12:51 Dose: 4 mg Documented by: [id number] Morphine Sulfate (Morphine Sulfate 2 Mg/Ml Carp) Confirm Administered Dose 2 mg .ROUTE .STK-MED ONE Stop: 12/07/19 12:43 Last Admin: 12/07/19 12:51 Dose: 2 mg Documented by: [id number] Morphine Sulfate (Morphine Sulfate 10 Mg/Ml Carp/Vial) 6 mg IV NOW STA Stop: 12/07/19 14:27 Last Admin: 12/07/19 14:39 Dose: Not Given Documented by: [id number] Morphine Sulfate (Morphine Sulfate 4 Mg/Ml 1 Ml Carp\Vial) Confirm Administered Dose 4 mg .ROUTE .STK-MED ONE Stop: 12/07/19 14:36 Last Admin: 12/07/19 14:39 Dose: 4 mg Documented by: [id number] Morphine Sulfate (Morphine Sulfate 2 Mg/Ml Carp) Confirm Administered Dose 2 mg .ROUTE .STK-MED ONE Stop: 12/07/19 14:36 Last Admin: 12/07/19 14:39 Dose: 2 mg Documented by: [id number] Morphine Sulfate (Morphine Sulfate 4 Mg/Ml 1 Ml Carp\Vial) 4 mg IV NOW STA Stop: 12/07/19 18:02 Last Admin: 12/07/19 18:25 Dose: 4 mg Documented by: [id number] Morphine Sulfate (Morphine Sulfate 2 Mg/Ml Carp) 2 mg IV Q2H PRN PRN Reason: Pain Stop: 12/21/19 21:54 Last Admin: 12/08/19 17:47 Dose: 2 mg Documented by: [id number] Admin: 12/08/19 15:35 Dose: 2 mg Documented by: [id number] Admin: 12/08/19 11:20 Dose: 2 mg Documented by: [id number] Admin: 12/08/19 09:15 Dose: 2 mg Documented by: [id number] Admin: 12/08/19 06:30 Dose: 2 mg Documented by: [id number] Admin: 12/08/19 03:59 Dose: 2 mg Documented by: [id number] Admin: 12/07/19 22:11 Dose: 2 mg Documented by: [id number] Ondansetron HCl (Ondansetron Inj 2 Mg/Ml 2 Ml Vial) 4 mg IV NOW STA Stop: 12/07/19 12:33 Last Admin: 12/07/19 12:51 Dose: 4 mg Documented by: [id number] Ondansetron HCl (Ondansetron Inj 2 Mg/Ml 2 Ml Vial) 4 mg IV NOW STA Stop: 12/07/19 21:16 Last Admin: 12/07/19 21:40 Dose: 4 mg Documented by: [id number] Oxycodone HCl (Oxycodone Hcl Ir 5 Mg Tab (Immediate Release)) 5 mg PO Q8H PRN PRN Reason: Pain, Severe Stop: 12/21/19 22:02 Last Admin: 12/08/19 11:19 Dose: 5 mg Documented by: [id number] Medical Decision Making Differential Diagnosis Differential diagnoses includes but is not limited to gastritis, peptic ulcer disease, GERD, gallbladder disease, pancreatitis, small bowel obstruction, acute coronary syndrome, pericarditis, ischemic bowel, irritable bowel disease, irritable bowel syndrome, appendicitis, diverticulitis, malignancy, hernia, urinary tract infection, torsion, [/ectopic (if female)], perforation, trauma, infectious, sickle cell crisis, as well as others were considered. Medical Records Attestation: I reviewed the patient's medical records. Home Medications Current Medication List: was personally reviewed by me Laboratory Data Attestation: I reviewed the patient's lab results. Result diagrams: 12/08/19 07:03 12/08/19 07:03 Lab Results 12/07/19 12/07/19 12/07/19 Range/Units 14:06 14:06 14:06 WBC 8.63 (4.8-10.8) K/uL RBC 2.40 L (4.2-5.4) M/uL Hgb 8.4 L (12.0-16.0) g/dL Hct 24.3 L (37-47) % MCV 101.3 H (80-100) fL MCH 35.0 H (25-34) pg MCHC 34.6 (32-36) g/dL RDW Std Deviation 74.4 H (36.4-46.3) fL RDW Coeff of Nando 20.5 H (11.5-14.5) % Plt Count 456 H (130-400) K/uL MPV 9.4 (7.4-10.4) fL Immature Gran % (Auto) 1.3 % Neut % (Auto) 68.1 % Lymph % (Auto) 22.0 % Giles % (Auto) 7.8 % Eos % (Auto) 0.5 % Baso % (Auto) 0.3 % Reticulocyte % (Auto) 11.2 H (0.5-2.0) % Neut # (Auto) 5.88 (1.4-6.5) K/uL Lymph # (Auto) 1.90 (1.2-3.4) K/uL Giles # (Auto) 0.67 H (0.11-0.59) K/uL Eos # (Auto) 0.04 (0-0.5) K/uL Baso # (Auto) 0.03 (0-0.2) K/uL Reticulocyte # 0.27 H (0.02-0.10) 10^6/uL Immature Gran # (Auto) 0.11 H (0.00-0.02) K/uL Absolute Nucleated RBC 0.11 H (0-0) K/uL Nucleated RBC % (auto) 1.3 % Anisocytosis Present Pappenheimer Bodies 1+ Sickle Cells 1+ Target Cells 1+ Sodium 139 (136-145) mmol/L Potassium 3.9 (3.5-5.1) mmol/L Chloride 110 H (98-107) mmol/L Carbon Dioxide 23 (21-32) mmol/L Anion Gap 6.0 (3-11) BUN 6 L (7-18) mg/dl Creatinine 0.57 L (0.6-1.2) mg/dl Est Cr Clr Drug Dosing 151.8 ml/min Est GFR ( Amer) > 150.0 Est GFR (Non-Af Amer) 132.5 BUN/Creatinine Ratio 10.1 (10-20) Glucose 90 (70-99) mg/dl Calcium 9.3 (8.5-10.1) mg/dl Magnesium 2.0 (1.8-2.4) mg/dl Total Bilirubin 1.7 H (0.2-1) mg/dl AST 32 (15-37) U/L ALT 27 (12-78) U/L Alkaline Phosphatase 81 (45-117) U/L Troponin I < 0.015 (0-0.045) ng/ml Total Protein 7.8 (6.4-8.2) gm/dl Albumin 3.6 (3.4-5.0) gm/dl Globulin 4.2 H (2.5-4.0) gm/dl Albumin/Globulin Ratio 0.9 (0.9-2) Lipase 119 (73-393) U/L TSH 2.620 (0.300-4.500) uIu/ml HCG, Qual Negative (Negative) Urine Color Urine Appearance (Clear) Urine pH (4.5-7.5) Ur Specific Stanford (1.000-1.030) Urine Protein (Negative) Urine Glucose (UA) (Negative) Urine Ketones (Negative) Urine Blood (Negative) Urine Nitrite (Negative) Urine Bilirubin (Negative) Urine Urobilinogen (Negative) Ur Leukocyte Esterase (Negative) Urine WBC (Auto) (0-5) /hpf Urine RBC (Auto) (0-4) /hpf U Hyaline Cast (Auto) (0-5) /lpf U Epithel Cells (Auto) (0-5) /lpf Urine Bacteria (Auto) (Negative) Lyme Disease IgG Ab Positive A (Negative) Lyme Disease IgM Ab Negative (Negative) 12/07/19 Range/Units 18:30 WBC (4.8-10.8) K/uL RBC (4.2-5.4) M/uL Hgb (12.0-16.0) g/dL Hct (37-47) % MCV (80-100) fL MCH (25-34) pg MCHC (32-36) g/dL RDW Std Deviation (36.4-46.3) fL RDW Coeff of Nando (11.5-14.5) % Plt Count (130-400) K/uL MPV (7.4-10.4) fL Immature Gran % (Auto) % Neut % (Auto) % Lymph % (Auto) % Giles % (Auto) % Eos % (Auto) % Baso % (Auto) % Reticulocyte % (Auto) (0.5-2.0) % Neut # (Auto) (1.4-6.5) K/uL Lymph # (Auto) (1.2-3.4) K/uL Giles # (Auto) (0.11-0.59) K/uL Eos # (Auto) (0-0.5) K/uL Baso # (Auto) (0-0.2) K/uL Reticulocyte # (0.02-0.10) 10^6/uL Immature Gran # (Auto) (0.00-0.02) K/uL Absolute Nucleated RBC (0-0) K/uL Nucleated RBC % (auto) % Anisocytosis Pappenheimer Bodies Sickle Cells Target Cells Sodium (136-145) mmol/L Potassium (3.5-5.1) mmol/L Chloride (98-107) mmol/L Carbon Dioxide (21-32) mmol/L Anion Gap (3-11) BUN (7-18) mg/dl Creatinine (0.6-1.2) mg/dl Est Cr Clr Drug Dosing ml/min Est GFR ( Amer) Est GFR (Non-Af Amer) BUN/Creatinine Ratio (10-20) Glucose (70-99) mg/dl Calcium (8.5-10.1) mg/dl Magnesium (1.8-2.4) mg/dl Total Bilirubin (0.2-1) mg/dl AST (15-37) U/L ALT (12-78) U/L Alkaline Phosphatase (45-117) U/L Troponin I (0-0.045) ng/ml Total Protein (6.4-8.2) gm/dl Albumin (3.4-5.0) gm/dl Globulin (2.5-4.0) gm/dl Albumin/Globulin Ratio (0.9-2) Lipase (73-393) U/L TSH (0.300-4.500) uIu/ml HCG, Qual (Negative) Urine Color Yellow Urine Appearance Clear (Clear) Urine pH 6.0 (4.5-7.5) Ur Specific Stanford 1.013 (1.000-1.030) Urine Protein Negative (Negative) Urine Glucose (UA) Negative (Negative) Urine Ketones Negative (Negative) Urine Blood Trace H (Negative) Urine Nitrite Negative (Negative) Urine Bilirubin Negative (Negative) Urine Urobilinogen Negative (Negative) Ur Leukocyte Esterase Negative (Negative) Urine WBC (Auto) 1-5 (0-5) /hpf Urine RBC (Auto) 5-10 H (0-4) /hpf U Hyaline Cast (Auto) 1-5 (0-5) /lpf U Epithel Cells (Auto) 10-20 H (0-5) /lpf Urine Bacteria (Auto) Negative (Negative) Lyme Disease IgG Ab (Negative) Lyme Disease IgM Ab (Negative) Imaging Data Radiologist's Impression: XR chest 1V portable HISTORY: Atypical chest pain, sickle crisis COMPARISON: None. FINDINGS: The lungs are clear. Cardiac silhouette is borderline enlarged. This remains unchanged.. No pleural effusions. No pneumothorax. IMPRESSION: No acute process. ACT 112: Negative or not required by law. Electronically signed by: Cortes Fletcher M.D. 12/07/2019 1:06 PM Blood Pressure Blood Pressure Findings: Normal blood pressure MDM Narrative Pt with sickle cell disease c/o increased pain consistent with prior episodes of pain. No fevers, no sx to suggest acute chest crisis. VS stable. Pt started on IVF and given pain meds. Difficulty infusing IVF as pt was difficult to obtain IV access on, a smaller gauge needle used and pt kept bending her arm. Pt monitored for several hours, several doses of pain meds given and pt hydrated with IVF. Labs reassuring, H/H and retic count were within range of what patient has experienced previously. I do not suspect infectious etiology. Pt feel dehydration and weather change has brought on more pain. She denies increased depression or SI at this time. Pt does admit to occasional noncompliance with her hydroxyurea. Pt sees hematology at [place]. Discussed all results with patient. She doesn't feel her pain is controlled and is uncomfortable going home. Discussed with hospitalist. An order was placed for continuous cardiac monitoring. The monitor shows a rate of _68_ with normal sinus_ rhythm. Impression & Plan Myalgia, Sickle cell anemia, Anemia Discharge Plan Visit Data Chief Complaint: Illness Stated Complaint: SICKLE CELL CRISIS ED Provider: Heidi Blake Discharge Problem: Myalgia, Sickle cell anemia, Anemia Patient Disposition: Admitted As Inpatient Discharge Instructions Interventions: ED Discharge Assessment Last Done: 12/07/19 21:45 Discharge Problem: Sickle cell anemia Qualifiers: Sickle-cell associated disorders: with unspecified crisis Qualified Code(s): D57.00 - Hb-SS disease with crisis, unspecified Anemia Qualifiers: Anemia type: unspecified type Qualified Code(s): D64.9 - Anemia, unspecified
[2019-12-07] MEDS ORDERED: MoRPHine SULFATE 4 MG/ML 1 ML CARP\\VIAL ONE ×2 (12:41→14:35)
[2019-12-07] MEDS ORDERED: MoRPHine SULFATE 2 MG/ML CARP ONE ×2 (12:42→14:35)
--- NOTE | 2019-12-07 13:07 | XRay Report ---
XR chest 1V portable HISTORY: Atypical chest pain, sickle crisis COMPARISON: None. FINDINGS: The lungs are clear. Cardiac silhouette is borderline enlarged. This remains unchanged.. No pleural effusions. No pneumothorax. IMPRESSION: No acute process. ACT 112: Negative or not required by law. Electronically signed by: Cortes Fletcher M.D. 12/07/2019 1:06 PM
[2019-12-07 14:25] LABS: Basophils # (auto) 0.03 K/uL (0-0.2); Basophils % (auto) 0.3 %; Eosinophils # (auto) 0.04 K/uL (0-0.5); Eosinophils % (auto) 0.5 %; Hematocrit (blood only) 24.3 % (37-47); Hemoglobin 8.4 g/dL (12.0-16.0); Immature Granulocytes # (auto) 0.11 K/uL (0.00-0.02); Immature Granulocytes % (auto) 1.3 %; Mean Corpuscular Hgb Conc 34.6 g/dL (32-36); Mean Corpuscular Volume 101.3 fL (80-100); Mean Platelet Volume 9.4 fL (7.4-10.4); Monocytes # (auto) 0.67 K/uL (0.11-0.59); Monocytes % (auto) 7.8 %; Neutrophils # (auto) 5.88 K/uL (1.4-6.5); Neutrophils % (auto) 68.1 %; Nucleated RBC # (auto) 0.11 K/uL (0-0); Nucleated RBC % (auto) 1.3 %; Platelet Count 456 K/uL (130-400); RDW Coefficient of Variation 20.5 % (11.5-14.5); RDW Standard Deviation 74.4 fL (36.4-46.3); Reticulocyte % 11.2 % (0.5-2.0); Reticulocytes # 0.27 10^6/uL (0.02-0.10); White Blood Count 8.63 K/uL (4.8-10.8)
[2019-12-07 14:41] LABS: Alanine Aminotransferase 27 U/L (12-78); Albumin Level 3.6 gm/dl (3.4-5.0); Aspartate Aminotransferase 32 U/L (15-37); BUN Creatinine Ratio 10.1 (10-20); Blood Urea Nitrogen 6 mg/dl (7-18); Calcium 9.3 mg/dl (8.5-10.1); Carbon Dioxide 23 mmol/L (21-32); Chloride 110 mmol/L (98-107); Creatinine Clr Calc Pharmacy 151.8 ml/min; Est GFR (African American) > 150.0; Est GFR (Non-African American) 132.5; Glucose 90 mg/dl (70-99); Lipase 119 U/L (73-393); Potassium 3.9 mmol/L (3.5-5.1); Sodium 139 mmol/L (136-145)
[2019-12-07 14:46] LABS: Anisocytosis Present; Pappenheimer Bodies 1+; Sickle Cells 1+; Target Cells 1+
[2019-12-07 14:48] LABS: Pregnancy Test, Serum Negative (Negative)
[2019-12-07 14:51] LABS: Albumin Globulin Ratio 0.9 (0.9-2); Alkaline Phosphatase 81 U/L (45-117); Bilirubin,Total 1.7 mg/dl (0.2-1); Globulin 4.2 gm/dl (2.5-4.0); Total Protein 7.8 gm/dl (6.4-8.2); Troponin I < 0.015 ng/ml (0-0.045)
[2019-12-07 15:44] LABS: Lyme Ab IgM w/WB Rflx Negative (Negative)
[2019-12-07 15:50] LABS: Lyme Ab IgG w/WB Rflx Positive (Negative)
--- NOTE | 2019-12-07 16:24 | Electrocardiogram Report ---
Test Reason : Blood Pressure : / mmHG Vent. Rate : 070 BPM Atrial Rate : 070 BPM P-R Int : 228 ms QRS Dur : 082 ms QT Int : 402 ms P-R-T Axes : 045 070 058 degrees QTc Int : 434 ms Poor data quality, interpretation may be adversely affected Sinus rhythm with 1st degree A-V block Possible Left atrial enlargement Borderline ECG When compared with ECG of 18-NOV-2019 15:34, [place] interval has increased Vent. rate has decreased BY 44 BPM Confirmed by Wade Davis ([id number]) on 12/07/2019 4:24:23 PM Referred By: Confirmed By:Wade Davis
[2019-12-07] MEDS ORDERED: IBUPROFEN 200 MG TAB PO STA (16:48)
[2019-12-07] MEDS ORDERED: MoRPHine SULFATE 4 MG/ML 1 ML CARP\\VIAL IV STA (18:01)
[2019-12-07 18:39] LABS: Appearance Urine Clear (Clear); Bacteria Urine Automated Negative (Negative); Bilirubin Urine Negative (Negative); Blood Urine Trace (Negative); Color Urine Yellow; Glucose Urine UA Negative (Negative); Ketones Urine Negative (Negative); Leukocyte Esterase Urine Negative (Negative); Nitrite Urine Negative (Negative); Protein Urine Negative (Negative); Specific Gravity Urine 1.013 (1.000-1.030); Urobilinogen Urine Negative (Negative)
--- NOTE | 2019-12-07 20:08 | History & Physical Report ---
Date of Service December 07, 2019 Assessment & Plan (1) Sickle cell crisis: 19yo female with SSA presenting with acute pain crisis. Patient afebrile, HD stable, NAD, non-toxic and comfortable in appearance. Her Hgb and reticulocyte count are similar to prior values. No clinical or radiographic evidence of acute chest at present. -Admit to medical -1/2NSS at 100mL/hr -Zofran PRN -Tylenol PRN -Morphine 2mg IV q 2 hours as needed -Continue Folic Acid, Hydrea -Continue Tramadol and Oyxodone -Continue Celebrex -Repeat CBC, Chemistry in AM Present on Admission?: Yes (2) Pseudoseizures: Stable. Noted Present on Admission?: Yes (3) Depression: Patient with history of borderline personality disorder, depression, prior SI. She was recently hospitalized for psychiatric reasons. She states she is doing fairly well from a mood standpoint. "As well as can be expected when you're in this much pain". She denies SI/HI or AH/VH. -Continue Duloxetine -Continue Buspirone F/E/N - 1/2NSS, electrolytes WNL, regular diet as tolerated Ppx - Low risk for DVT. Encourage ambulation Code - Full per discussion with patient Dispo - Admit to medical History of Present Illness Chief Complaint: body pain Primary Care Provider: [facility] Sharath is a 19yo female with history of sickle cell anemia presenting with acute pain crisis. She reports frequent pain crises associated with cold, change in weather, exercise and stress. Pain began approximately 1 week ago as mild body and joint pain. She has been taking Advil as needed. She reports being out of her oxycodone. She states that her pain became acutely worse last night - involving her legs, back and joints as well as her jaw and teeth. She has some chest discomfort as well which is typical of her SS crises as well as some mild nausea. She denies fever/chills/SOB/cough/palpitation/vomiting/diarrhea/constipation. No additional complaints at this time. No concern for Covid-19 exposure. Patient follows with Hematology at [facility]. She reports taking her Folic acid and hydroxyurea daily. ER Course: NSS x 1L, Tylenol x 1gm, Zofran x 4mg, Morphine x4mg, 2mg, 4mg, 2mg,4mg, Ibuprofen 400mg Allergies Allergy/AdvReac Type Severity Reaction Status Date / Time No Known Allergies Allergy Verified 12/07/19 13:03 Home Medications Home Medications Medication Instructions Recorded Confirmed Type celecoxib 100 mg PO BID 11/18/19 12/07/19 History duloxetine 20 mg PO QAM 11/18/19 12/07/19 History folic acid 2 mg PO DAILY 11/18/19 12/07/19 History oxycodone 5 mg PO Q8H PRN 11/18/19 12/07/19 History tramadol 50 mg PO Q12 PRN 11/18/19 12/07/19 History buspirone 10 mg PO TID 11/23/19 12/07/19 History Past Med/Surg History Medical History Borderline personality disorder Pneumonia Seizure-like activity Sickle cell anemia Sickle cell crisis Surgical History No pertinent past surgical history Family History Mother Hypertension Father Ulcer Other Family history non-contributory Social History Smoking Status: Never smoker Second Hand Exposure: No; Hx Alcohol Use: Yes Alcohol type: beer, wine and hard liquor Hx Substance Use: Yes Last Used Substance: Just Prior to Arrival Substance Use Type Other:: Unknown; Patient sedated & unable to answer Preferred Language: Panamanian Communication Ability: Effective Instrument Man Required: No Beliefs That Will Affect Care: None marital status: Single Current Living Situation: Other Current Living Situation Comment: Roommates 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 current occupation: [employer] major Feels Safe at Home: Yes Assistive Devices: Glasses Review of Systems Review of Systems: All systems reviewed & are unremarkable except as noted in HPI & below Physical Exam Physical Exam: General: patient resting comfortably, NAD, non-toxic in appearance, AA&O x 4 Skin: warm, dry, intact, no rashes or lesions HEENT: NC/AT, PERRL, EOMI, anicteric sclera, conjunctiva without injection, external ear normal to inspection and nontender, nares patent, slightly dry mucus membranes, dentition intact, no oropharyngeal lesions, neck supple, trachea midline, no LAD, no thyromegaly, no JVD Heart: +S1/S2, regular, no m/r/g Lungs: equal air entry bilaterally, no rales/rhonchi/wheezes Abd: +BS, soft, NT/ND, no masses/organomegaly/ascites Ext: warm, 2+ pulses in UE/LE bilaterally, no clubbing/cyanosis or edema Neuro: nonfocal, patient AA&O x 4, speech intact, no facial droop, moving all extremities on command with equal strength 5/5 Results & Data Results & Data ([facility]) Vital Signs (Past 12 Hours) Vital Signs Temp Pulse Pulse Resp BP BP Pulse Ox 12/07/19 18:29 78 18 109/71 98 12/07/19 17:49 80 18 111/67 95 12/07/19 16:33 74 18 124/80 97 12/07/19 15:35 67 18 118/76 95 12/07/19 14:41 59 L 18 111/78 97 12/07/19 13:41 60 20 110/74 98 12/07/19 11:54 36.8 C 59 L 24 136/80 97 Laboratory Results Lab Results 12/07/19 12/07/19 12/07/19 Range/Units 14:06 14:06 14:06 WBC 8.63 (4.8-10.8) K/uL RBC 2.40 L (4.2-5.4) M/uL Hgb 8.4 L (12.0-16.0) g/dL Hct 24.3 L (37-47) % MCV 101.3 H (80-100) fL MCH 35.0 H (25-34) pg MCHC 34.6 (32-36) g/dL RDW Std Deviation 74.4 H (36.4-46.3) fL RDW Coeff of Nando 20.5 H (11.5-14.5) % Plt Count 456 H (130-400) K/uL MPV 9.4 (7.4-10.4) fL Immature Gran % (Auto) 1.3 % Neut % (Auto) 68.1 % Lymph % (Auto) 22.0 % Harmon % (Auto) 7.8 % Eos % (Auto) 0.5 % Baso % (Auto) 0.3 % Reticulocyte % (Auto) 11.2 H (0.5-2.0) % Neut # (Auto) 5.88 (1.4-6.5) K/uL Lymph # (Auto) 1.90 (1.2-3.4) K/uL Harmon # (Auto) 0.67 H (0.11-0.59) K/uL Eos # (Auto) 0.04 (0-0.5) K/uL Baso # (Auto) 0.03 (0-0.2) K/uL Reticulocyte # 0.27 H (0.02-0.10) 10^6/uL Immature Gran # (Auto) 0.11 H (0.00-0.02) K/uL Absolute Nucleated RBC 0.11 H (0-0) K/uL Nucleated RBC % (auto) 1.3 % Anisocytosis Present Pappenheimer Bodies 1+ Sickle Cells 1+ Target Cells 1+ Sodium 139 (136-145) mmol/L Potassium 3.9 (3.5-5.1) mmol/L Chloride 110 H (98-107) mmol/L Carbon Dioxide 23 (21-32) mmol/L Anion Gap 6.0 (3-11) BUN 6 L (7-18) mg/dl Creatinine 0.57 L (0.6-1.2) mg/dl Est Cr Clr Drug Dosing 151.8 ml/min Est GFR ( Amer) > 150.0 Est GFR (Non-Af Amer) 132.5 BUN/Creatinine Ratio 10.1 (10-20) Glucose 90 (70-99) mg/dl Calcium 9.3 (8.5-10.1) mg/dl Magnesium 2.0 (1.8-2.4) mg/dl Total Bilirubin 1.7 H (0.2-1) mg/dl AST 32 (15-37) U/L ALT 27 (12-78) U/L Alkaline Phosphatase 81 (45-117) U/L Troponin I < 0.015 (0-0.045) ng/ml Total Protein 7.8 (6.4-8.2) gm/dl Albumin 3.6 (3.4-5.0) gm/dl Globulin 4.2 H (2.5-4.0) gm/dl Albumin/Globulin Ratio 0.9 (0.9-2) Lipase 119 (73-393) U/L TSH 2.620 (0.300-4.500) uIu/ml HCG, Qual Negative (Negative) Urine Color Urine Appearance (Clear) Urine pH (4.5-7.5) Ur Specific [place] (1.000-1.030) Urine Protein (Negative) Urine Glucose (UA) (Negative) Urine Ketones (Negative) Urine Blood (Negative) Urine Nitrite (Negative) Urine Bilirubin (Negative) Urine Urobilinogen (Negative) Ur Leukocyte Esterase (Negative) Urine WBC (Auto) (0-5) /hpf Urine RBC (Auto) (0-4) /hpf U Hyaline Cast (Auto) (0-5) /lpf U Epithel Cells (Auto) (0-5) /lpf Urine Bacteria (Auto) (Negative) Lyme Disease IgG Ab Positive A (Negative) Lyme Disease IgM Ab Negative (Negative) 12/07/19 Range/Units 18:30 WBC (4.8-10.8) K/uL RBC (4.2-5.4) M/uL Hgb (12.0-16.0) g/dL Hct (37-47) % MCV (80-100) fL MCH (25-34) pg MCHC (32-36) g/dL RDW Std Deviation (36.4-46.3) fL RDW Coeff of Nando (11.5-14.5) % Plt Count (130-400) K/uL MPV (7.4-10.4) fL Immature Gran % (Auto) % Neut % (Auto) % Lymph % (Auto) % Harmon % (Auto) % Eos % (Auto) % Baso % (Auto) % Reticulocyte % (Auto) (0.5-2.0) % Neut # (Auto) (1.4-6.5) K/uL Lymph # (Auto) (1.2-3.4) K/uL Harmon # (Auto) (0.11-0.59) K/uL Eos # (Auto) (0-0.5) K/uL Baso # (Auto) (0-0.2) K/uL Reticulocyte # (0.02-0.10) 10^6/uL Immature Gran # (Auto) (0.00-0.02) K/uL Absolute Nucleated RBC (0-0) K/uL Nucleated RBC % (auto) % Anisocytosis Pappenheimer Bodies Sickle Cells Target Cells Sodium (136-145) mmol/L Potassium (3.5-5.1) mmol/L Chloride (98-107) mmol/L Carbon Dioxide (21-32) mmol/L Anion Gap (3-11) BUN (7-18) mg/dl Creatinine (0.6-1.2) mg/dl Est Cr Clr Drug Dosing ml/min Est GFR ( Amer) Est GFR (Non-Af Amer) BUN/Creatinine Ratio (10-20) Glucose (70-99) mg/dl Calcium (8.5-10.1) mg/dl Magnesium (1.8-2.4) mg/dl Total Bilirubin (0.2-1) mg/dl AST (15-37) U/L ALT (12-78) U/L Alkaline Phosphatase (45-117) U/L Troponin I (0-0.045) ng/ml Total Protein (6.4-8.2) gm/dl Albumin (3.4-5.0) gm/dl Globulin (2.5-4.0) gm/dl Albumin/Globulin Ratio (0.9-2) Lipase (73-393) U/L TSH (0.300-4.500) uIu/ml HCG, Qual (Negative) Urine Color Yellow Urine Appearance Clear (Clear) Urine pH 6.0 (4.5-7.5) Ur Specific [place] 1.013 (1.000-1.030) Urine Protein Negative (Negative) Urine Glucose (UA) Negative (Negative) Urine Ketones Negative (Negative) Urine Blood Trace H (Negative) Urine Nitrite Negative (Negative) Urine Bilirubin Negative (Negative) Urine Urobilinogen Negative (Negative) Ur Leukocyte Esterase Negative (Negative) Urine WBC (Auto) 1-5 (0-5) /hpf Urine RBC (Auto) 5-10 H (0-4) /hpf U Hyaline Cast (Auto) 1-5 (0-5) /lpf U Epithel Cells (Auto) 10-20 H (0-5) /lpf Urine Bacteria (Auto) Negative (Negative) Lyme Disease IgG Ab (Negative) Lyme Disease IgM Ab (Negative) Diagnostic Findings XR chest 1V portable HISTORY: Atypical chest pain, sickle crisis COMPARISON: None. FINDINGS: The lungs are clear. Cardiac silhouette is borderline enlarged. This remains unchanged.. No pleural effusions. No pneumothorax. IMPRESSION: No acute process. ACT 112: Negative or not required by law. Electronically signed by: Cortes Fletcher M.D. 12/07/2019 1:06 PM Dictated: 12/07/19 1304 Transcribed: 12/07/19 130 ECG Additional Comments: XR chest 1V portable HISTORY: Atypical chest pain, sickle crisis COMPARISON: None. FINDINGS: The lungs are clear. Cardiac silhouette is borderline enlarged. This remains unchanged.. No pleural effusions. No pneumothorax. IMPRESSION: No acute process. ACT 112: Negative or not required by law. Electronically signed by: Cortes Fletcher M.D. 12/07/2019 1:06 PM Dictated: 12/07/19 1304 Transcribed: 12/07/19 130 Code Status & VTE Plan Code Status FULL PG Care Time/CCT Total # of Minutes Spent Total Time Spent with Patient: Total time spent is greater than 50% in coordination of care (as documented) at patient's floor/unit and/or counseling patient: Coding Level of Care Code 91346 Initial Inpt Care Lvl 2 Diagnoses Sickle cell crisis D57.00 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 Depression F33.2 Active/Remission status: currently active Depression Type: major depressive disorder Major depression episode severity: severe Major depression recurrence: recurrent Psychotic features: without psychotic features (1) Depression Active/Remission status: currently active Depression Type: major depressive disorder Major depression episode severity: severe Major depression recurrence: recurrent Psychotic features: without psychotic features Qualified Code(s): F33.2 - Major depressive disorder, recurrent severe without psychotic features
[2019-12-07] MEDS ORDERED: traMADol HCL 50 MG TABLET PO PRN (21:55)
[2019-12-07] MEDS ORDERED: DOCUSATE SODIUM 100 MG CAP PO PRN (21:55)
[2019-12-07] MEDS ORDERED: oxyCODONE HCL IR 5 MG TAB (IMMEDIATE RELEASE) PO PRN (22:03)
[2019-12-07] MEDS: MoRPHine SULFATE 2 MG/ML CARP IV PRN (22:11)
[2019-12-07] MEDS: SODIUM CHLORIDE 0.45 % 1,000 ML IV SCH (22:11)
[2019-12-07] MEDS: busPIRone 5 MG TAB PO SCH (22:47)
[2019-12-07] MEDS: CELECOXIB 100 MG CAP PO SCH (22:48)
[2019-12-08] MEDS: MoRPHine SULFATE 2 MG/ML CARP IV PRN ×6 (03:59→17:47)
[2019-12-08 07:42] LABS: Basophils # (auto) 0.02 K/uL (0-0.2); Basophils % (auto) 0.2 %; Eosinophils # (auto) 0.13 K/uL (0-0.5); Eosinophils % (auto) 1.2 %; Hematocrit (blood only) 23.5 % (37-47); Hemoglobin 8.5 g/dL (12.0-16.0); Immature Granulocytes # (auto) 0.06 K/uL (0.00-0.02); Immature Granulocytes % (auto) 0.5 %; Lymphocytes # (auto) 2.03 K/uL (1.2-3.4); Lymphocytes % (auto) 18.2 %; Mean Corpuscular Hgb Conc 36.2 g/dL (32-36); Mean Corpuscular Volume 99.6 fL (80-100); Mean Platelet Volume 9.6 fL (7.4-10.4); Monocytes # (auto) 0.77 K/uL (0.11-0.59); Monocytes % (auto) 6.9 %; Neutrophils # (auto) 8.12 K/uL (1.4-6.5); Nucleated RBC # (auto) 0.17 K/uL (0-0); Nucleated RBC % (auto) 1.5 %; Platelet Count 474 K/uL (130-400); RDW Coefficient of Variation 21.9 % (11.5-14.5); RDW Standard Deviation 77.8 fL (36.4-46.3); Red Blood Count 2.36 M/uL (4.2-5.4); White Blood Count 11.13 K/uL (4.8-10.8)
[2019-12-08] MEDS: SODIUM CHLORIDE 0.45 % 1,000 ML IV SCH (08:02)
[2019-12-08 08:09] LABS: Alanine Aminotransferase 24 U/L (12-78); Albumin Level 3.3 gm/dl (3.4-5.0); Aspartate Aminotransferase 35 U/L (15-37); BUN Creatinine Ratio 5.3 (10-20); Bilirubin Direct 0.3 mg/dl (0-0.2); Blood Urea Nitrogen 3 mg/dl (7-18); Calcium 9.3 mg/dl (8.5-10.1); Carbon Dioxide 25 mmol/L (21-32); Chloride 109 mmol/L (98-107); Creatinine Clr Calc Pharmacy 157.3 ml/min; Est GFR (African American) > 150.0; Est GFR (Non-African American) 134.1; Glucose 90 mg/dl (70-99); Potassium 3.6 mmol/L (3.5-5.1); Sodium 139 mmol/L (136-145)
[2019-12-08 08:12] LABS: Alkaline Phosphatase 67 U/L (45-117); Bilirubin,Total 1.9 mg/dl (0.2-1); Total Protein 7.1 gm/dl (6.4-8.2)
[2019-12-08 08:13] LABS: Anisocytosis Present; Polychromasia 1+; Sickle Cells 1+; Target Cells 1+
[2019-12-08] MEDS: CELECOXIB 100 MG CAP PO SCH (09:17)
[2019-12-08] MEDS: FOLIC ACID 1 MG TAB PO SCH (09:18)
[2019-12-08] MEDS: HYDROXYUREA 500 MG CAP PO SCH (09:18)
[2019-12-08] MEDS: DULoxetine HCL 20 MG CAP PO SCH (09:18)
[2019-12-08] MEDS: busPIRone 5 MG TAB PO SCH ×3 (09:18→20:14)
[2019-12-08] MEDS: ONDANSETRON INJ 2 MG/ML 2 ML VIAL IV PRN (12:14)
[2019-12-08] MEDS ORDERED: oxyCODONE HCL IR 5 MG TAB (IMMEDIATE RELEASE) PO PRN (17:17)
--- NOTE | 2019-12-08 17:32 | Hospitalist Progress Note ---
Date of Service December 08, 2019 Assessment & Plan (1) Sickle cell anemia: Currently receiving tramadol, oxycodone, celecoxib, and morphine sulfate No recent transfusions Chest x-ray is without acute process or evidence of pulmonary failure No acute renal failure Hemoglobin appears stable at 8.5 and platelets are at 474,000 Bilirubin is a 1.9 Patient has no complaint of headache or chest pain No focal pain in the left upper quadrant no evidence of cholecystitis White blood cell count was normal on presentation and is now 11,000 No complaints of gout-like pain Patient does state that the oxycodone takes the edge off for 20 minutes but is short acting Stop tramadol PDMP reviewed. Will discontinue oxycodone Discontinue celebrex Start Toradol 15mg IV q6h PRN Will start COMPETITIVE ATHLETE tonight with morphine sulfate 1mg/hr continuous and max of 4mg/hr Start gabapentin 100 mg TID for neuropathic pain from vaso-occlusive disease We will consult pain management Dr. Bullock aware Continue hydroxyurea and folic acid (2) Pseudoseizures: No evidence of seizure activity while in this hospital stay No history of epilepsy No antiepileptic medications as an outpatient (3) Borderline personality disorder: Continue duloxetine 20 mg daily and buspirone Consider increasing Cymbalta to 20mg PO qam and 10 mg PO qpm to help with pain modulation (4) DVT prophylaxis: SCDs are not tolerated due to vaso-occlusive disease from Sickle cell disease No asymmetrical edema Will start heparin 5ooo units q8h for prophylaxis Please refer to Dr. Flynn's addendum for further recommendations Admission and Anticipated Discharge Date Admission Date: December 07, 2019 Subjective Attending: Dr. Flynn This is a 19-year-old -[place] female who is a student at [employer]. She presented with severe pain from sickle cell crisis and was admitted for management. PDMP was reviewed and patient was primarily on tramadol until August when she began oxycodone 5 mg tablets. Since that time she has had oxycodone refilled September 15 October 19 and October 25. She states that she follows with a dry chain puller at [facility] in [facility] [address]. She has been doing telemedicine because of the pandemic. I stopped and saw the patient 3 times today and she was sleeping comfortably. On the fourth visit, the patient appeared to be comfortable using her cell phone in bed. Upon questioning she stated that she had 10 out of 10 pain. She could not specify any focal pain and she could not elaborate on quality of pain. Blood pressures been stable throughout the day. There is no reported tachycardia. The patient is afebrile with no hypoxia. The patient denies fever, chills, sweats, rigors. She has no nausea or vomiting. She has no diarrhea. She has no other constitutional symptoms. Review of Systems Review of Systems: All systems reviewed & are unremarkable except as noted in Subjective Physical Exam Physical Exam: GENERAL : No acute distress EYES: No icterus, gaze conjugate NOSE: No evidence of epistaxis MOUTH: No lesions or candidiasis NECK: Supple LUNGS: CTA B/L, no wheezes, rales or rhonchi HEART: Regular, rate controlled ABDOMEN: Soft, NT, ND, BS Present EXTREMITIES: No LE edema, pedal pulses intact NEURO: A&OX3 Results & Data Results & Data ([facility]) Vital Signs (Past 12 Hours) Vital Signs Temp Pulse Resp BP Pulse Ox 12/08/19 15:46 36.9 C 84 20 102/65 92 12/08/19 07:05 37.4 C 74 16 113/67 95 Laboratory Results 12/08/19 07:03 12/08/19 07:03 Diagnostic Findings XR chest 1V portable HISTORY: Atypical chest pain, sickle crisis COMPARISON: None. FINDINGS: The lungs are clear. Cardiac silhouette is borderline enlarged. This remains unchanged.. No pleural effusions. No pneumothorax. IMPRESSION: No acute process. Electronically signed by: Cortes Fletcher M.D. 12/07/2019 1:06 PM PG Care Time/CCT Total # of Minutes Spent Total Time Spent with Patient: Total time spent is greater than 50% in coordination of care (as documented) at patient's floor/unit and/or counseling patient: 40 minutes including discussion with other providers and chart review Coding Level of Care Code 91270 Subseq Hosp Care Lvl 3 Diagnoses 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 Borderline personality disorder F60.3 DVT prophylaxis Z29.9 Time Spent (min) 40 (1) Sickle cell anemia Sickle-cell associated disorders: without crisis Qualified Code(s): D57.1 - Sickle-cell disease without crisis
[2019-12-08] MEDS ORDERED: NALOXONE HCL 0.4 MG/1 ML VIAL/CARP IV PRN (17:40)
[2019-12-08] MEDS ORDERED: SODIUM CHLORIDE 0.9% 1000ML 1,000 ML IV SCH (17:45)
[2019-12-08] MEDS: MoRPHine SULFATE PCA 30 MG/30 ML IV PRN (19:26)
[2019-12-08] MEDS: SODIUM CHLORIDE 0.9% 1000ML 1,000 ML IV SCH (19:29)
[2019-12-08 19:30] LABS: Pregnancy Test, Urine Negative (Negative)
[2019-12-08] MEDS: GABAPENTIN 100 MG CAP PO SCH (20:13)
[2019-12-08] MEDS: ACETAMINOPHEN 325 MG TAB PO PRN (21:37)
[2019-12-09] MEDS: SODIUM CHLORIDE 0.9% 1000ML 1,000 ML IV SCH ×3 (04:10→21:14)
[2019-12-09] MEDS: MoRPHine SULFATE PCA 30 MG/30 ML IV PRN (05:19)
[2019-12-09] MEDS: GABAPENTIN 100 MG CAP PO SCH ×3 (08:07→21:12)
[2019-12-09] MEDS: DULoxetine HCL 20 MG CAP PO SCH (08:07)
[2019-12-09] MEDS: busPIRone 5 MG TAB PO SCH ×3 (08:08→21:12)
[2019-12-09] MEDS: HYDROXYUREA 500 MG CAP PO SCH (08:08)
[2019-12-09] MEDS: FOLIC ACID 1 MG TAB PO SCH (08:12)
[2019-12-09] MEDS ORDERED: NALOXONE HCL 0.4 MG/1 ML VIAL/CARP IV PRN (09:39)
[2019-12-09] MEDS ORDERED: HYDROmorphone PCA 30 MG/30 ML IV PRN (09:39)
[2019-12-09] MEDS ORDERED: SODIUM CHLORIDE 0.9% 1000ML 1,000 ML IV SCH (09:45)
--- NOTE | 2019-12-09 12:34 | Pain Management Consultation ---
Date of Consultation December 09, 2019 Assessment & Plan (1) Sickle cell crisis: * Will transition ORDER CLERK from morphine to hydromorphone at 0.2 mg q. 20 minutes without continuous at this time to assess benefit/need * Consider titration of gabapentin pending tolerability over the next few days * Consider increasing duloxetine to 40 mg total daily dose in an attempt to further augment pain control * Further recommendations pending response to above. Present on Admission?: Yes (2) Vaso-occlusive sickle cell crisis: Present on Admission?: Yes (3) Borderline personality disorder: Present on Admission?: Yes (4) Depression: Active/Remission status: currently active Depression Type: major depressive disorder Major depression episode severity: severe Major depression recurrence: recurrent Psychotic features: without psychotic features Qualified Code(s): F33.2 - Major depressive disorder, recurrent severe without psychotic features Present on Admission?: Yes (5) Suicide gesture: Encounter type: initial encounter Qualified Code(s): X83.8XXA - Intentional self-harm by other specified means, initial encounter Present on Admission?: No History of Present Illness Reason for Consultation: Intractable pain secondary to sickle cell crisis Requesting Physician: Richard VAZQUEZ Attending Physician: Gaston Flynn History of Present Illness Ms. Early is a 19-year-old -[place] female who was admitted due to intractable pain complaints with history of sickle cell anemia and sickle cell crisis. Patient was recently admitted to [facility] with similar complaints and was discharged on 12/01/2019. Patient's last admission was associated with suicidal intentional overdose. Patient was followed by behavioral health during this admission. She was prescribed minimal opiate therapy upon her discharge. She was followed by hematology at [facility] relating to her sickle cell disease. Patient is describing generalized pain involving joints predominantly at this time. She denies any localized pain or any radicular pattern to her pain complaints. She denies any recent change to outpatient medications. She was reporting increased situational stressors but was unwilling to elaborate are potentially contributing to increased pain. Patient is rating her pain at a 6-10/10. She is reporting minimal benefit from utilization of morphine ORDER CLERK over the past 12 hours as she has utilized approximately 24 mg during this timeframe. She does report prior utilization of hydromorphone which she feels has been previously more effective at pain control of morphine. Patient offered no further concerns or complaints during today's visit. Plan of care discussed with Dr. Bullock. Pain Assessment Pain scale - at its best (0-10): 6 Pain scale - at its worst (0-10): 10 Allergies Allergy/AdvReac Type Severity Reaction Status Date / Time No Known Allergies Allergy Verified 12/07/19 13:03 Home Medications Home Medications Medication Instructions Recorded Confirmed Type celecoxib 100 mg PO BID 11/18/19 12/07/19 History duloxetine 20 mg PO QAM 11/18/19 12/07/19 History folic acid 2 mg PO DAILY 11/18/19 12/07/19 History oxycodone 5 mg PO Q8H PRN 11/18/19 12/07/19 History tramadol 50 mg PO Q12 PRN 11/18/19 12/07/19 History buspirone 10 mg PO TID 11/23/19 12/07/19 History Pain History Pain Intensity Pain scale - at its best (0-10): 6 Pain scale - at its worst (0-10): 10 Patient History Medical History Borderline personality disorder Pneumonia Seizure-like activity Sickle cell anemia Sickle cell crisis Surgical History No pertinent past surgical history Family History Mother Hypertension Father Ulcer Other Family history non-contributory Social History Smoking Status: Never smoker Second Hand Exposure: No; Hx Alcohol Use: Yes Alcohol type: wine Hx Substance Use: No Preferred Language: Montenegrin Communication Ability: Effective Building Maintenance Mechanic Required: No Beliefs That Will Affect Care: None marital status: Single Current Living Situation: Other Current Living Situation Comment: apartment with roommates 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 current occupation: [employer] Feels Safe at Home: Yes Assistive Devices: None Physical Exam Physical Exam: General: Patient was lying quietly in exam room in no acute distress. Patient was arousable and answering directed questions. Mood and affect is flat. Cognition intact. Head: Normocephalic and atraumatic. Neck: Supple without adenopathy and full range of motion. Chest: Nontender to palpation of the costosternal junction. Abdomen: Soft and nondistended. No organomegaly. Bowel sounds active. Lower extremities: Nontender to palpation. No evidence of edema or warmth of peripheral joints. Sensation intact. Neurologic: Cranial nerves grossly intact. Ambulatory function not witnessed.
[2019-12-09] MEDS ORDERED: POLYETHYLENE (MIRALAX) 17 GM PACK PO PRN (14:36)
--- NOTE | 2019-12-09 14:37 | Hospitalist Progress Note ---
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 Continue Cymbalta Pain management consulted. I discussed plan with Dr. Bullock and Rommel Blair PA-C Patient will be transition from morphine to hydromorphone at 0.2 mg q. 20 minutes without continuous infusion at this time We will also increase duloxetine (Cymbalta) from 20 mg every morning TO 20 mg every morning and 10 mg every afternoon to further augment pain control Continue with bowel regimen * Currently receiving docusate sodium 100 mg p.o. twice daily * We will add Senokot * Will also add MiraLAX * Target 1 bowel movement per day No nausea or vomiting No prior imaging to evaluate for splenic sequestration -if pain develops in abdominal region or patient has nausea and vomiting, consider CT abdomen pelvis Continue supportive care at this time (2) Pseudoseizures: No evidence of seizure activity while in this hospital stay No history of epilepsy No antiepileptic medications as an outpatient (3) Borderline personality disorder: Continue duloxetine 20 mg daily and buspirone Change Cymbalta to 20mg PO qam and 10 mg PO qpm to help with pain modulation (4) DVT prophylaxis: SCDs are not tolerated due to vaso-occlusive disease from Sickle cell disease No asymmetrical edema Heparin 5ooo units q8h for prophylaxis Please refer to Dr. Flynn's addendum for further recommendations Admission and Anticipated Discharge Date Admission Date: December 07, 2019 Subjective Attending: Dr. Flynn Patient seen and examined at bedside. She is found resting comfortably. She awakens easily and reports that her pain is improved from yesterday but she still has pain in her lower extremities. There is no edema nor asymmetrical edema. She has no nausea or vomiting. She denies any fever. Aside from pain, she has no acute complaints Review of Systems Review of Systems: All systems reviewed & are unremarkable except as noted in Subjective Physical Exam Physical Exam: GENERAL : No acute distress EYES: No icterus, gaze conjugate NOSE: No evidence of epistaxis MOUTH: No lesions or candidiasis NECK: Supple LUNGS: CTA B/L, no wheezes, rales or rhonchi HEART: Regular, rate controlled ABDOMEN: Soft, NT, ND, BS Present EXTREMITIES: No LE edema, pedal pulses intact and equal bilaterally. There is no asymmetrical edema. There is no pain with palpation of calves or pretibial region. NEURO: A&OX3 Results & Data Results & Data ([facility]) Vital Signs (Past 12 Hours) Vital Signs Temp Pulse Pulse Resp BP Pulse Ox 12/09/19 11:00 36.7 C 76 18 115/69 98 12/09/19 07:51 37.3 C 77 18 99/60 L 96 12/09/19 03:59 92 12/09/19 03:56 37.3 C 85 16 114/65 92 Laboratory Results CBC, PRP, LFTs are pending for today Diagnostic Findings No further diagnostic testing completed PG Care Time/CCT Total # of Minutes Spent Total Time Spent with Patient: Total time spent is greater than 50% in coordination of care (as documented) at patient's floor/unit and/or counseling patient: 30 minutes including discussion with patient as well as pain management team Coding Level of Care Code 20064 Subseq Hosp Care Lvl 2 Diagnoses Sickle cell anemia D57.00 Sickle-cell associated disorders: with unspecified crisis 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 Borderline personality disorder F60.3 DVT prophylaxis Z29.9 Time Spent (min) 30 (1) Sickle cell anemia Sickle-cell associated disorders: with unspecified crisis Qualified Code(s): D57.00 - Hb-SS disease with crisis, unspecified
[2019-12-09 14:45] LABS: Basophils # (auto) 0.02 K/uL (0-0.2); Basophils % (auto) 0.2 %; Eosinophils # (auto) 0.15 K/uL (0-0.5); Eosinophils % (auto) 1.6 %; Hematocrit (blood only) 22.8 % (37-47); Hemoglobin 8.1 g/dL (12.0-16.0); Immature Granulocytes # (auto) 0.05 K/uL (0.00-0.02); Immature Granulocytes % (auto) 0.5 %; Lymphocytes # (auto) 2.02 K/uL (1.2-3.4); Lymphocytes % (auto) 22.1 %; Mean Corpuscular Hemoglobin 34.6 pg (25-34); Mean Corpuscular Hgb Conc 35.5 g/dL (32-36); Mean Corpuscular Volume 97.4 fL (80-100); Neutrophils # (auto) 5.82 K/uL (1.4-6.5); Neutrophils % (auto) 63.6 %; Nucleated RBC # (auto) 0.25 K/uL (0-0); Nucleated RBC % (auto) 2.8 %; Platelet Count 408 K/uL (130-400); RDW Coefficient of Variation 21.4 % (11.5-14.5); RDW Standard Deviation 75.3 fL (36.4-46.3); Red Blood Count 2.34 M/uL (4.2-5.4); White Blood Count 9.16 K/uL (4.8-10.8)
[2019-12-09 15:18] LABS: Alanine Aminotransferase 21 U/L (12-78); Albumin Level 3.2 gm/dl (3.4-5.0); Alkaline Phosphatase 78 U/L (45-117); Aspartate Aminotransferase 36 U/L (15-37); BUN Creatinine Ratio 9.5 (10-20); Bilirubin Direct 0.5 mg/dl (0-0.2); Bilirubin,Total 2.9 mg/dl (0.2-1); Blood Urea Nitrogen 4 mg/dl (7-18); Calcium 8.6 mg/dl (8.5-10.1); Carbon Dioxide 27 mmol/L (21-32); Chloride 103 mmol/L (98-107); Creatinine Clr Calc Pharmacy 188.1 ml/min; Est GFR (African American) > 150.0; Est GFR (Non-African American) 142.2; Glucose 87 mg/dl (70-99); Potassium 3.7 mmol/L (3.5-5.1); Sodium 137 mmol/L (136-145); Total Protein 7.2 gm/dl (6.4-8.2)
[2019-12-09 15:22] LABS: Anisocytosis Present; Polychromasia 1+; Sickle Cells 2+; Target Cells 1+
[2019-12-09] MEDS: ONDANSETRON INJ 2 MG/ML 2 ML VIAL IV PRN (15:49)
[2019-12-09] MEDS: KETOROLAC TROMETHAMINE 15 MG/ML VIAL IV PRN (15:49)
[2019-12-09] MEDS: SENNA 8.6 MG TAB PO SCH (16:03)
[2019-12-09] MEDS: HEPARIN SOD 5,000 UNIT/0.5 ML VIAL SQ SCH (20:58)
[2019-12-10] MEDS: KETOROLAC TROMETHAMINE 15 MG/ML VIAL IV PRN ×4 (04:24→22:38)
[2019-12-10] MEDS: SODIUM CHLORIDE 0.9% 1000ML 1,000 ML IV SCH ×3 (04:29→20:10)
[2019-12-10 06:32] LABS: Hematocrit (blood only) 20.4 % (37-47); Hemoglobin 7.3 g/dL (12.0-16.0); Mean Corpuscular Hemoglobin 34.9 pg (25-34); Mean Corpuscular Hgb Conc 35.8 g/dL (32-36); Mean Corpuscular Volume 97.6 fL (80-100); Mean Platelet Volume 9.1 fL (7.4-10.4); Nucleated RBC # (auto) 0.13 K/uL (0-0); Nucleated RBC % (auto) 1.6 %; Platelet Count 373 K/uL (130-400); RDW Coefficient of Variation 21.2 % (11.5-14.5); Red Blood Count 2.09 M/uL (4.2-5.4); White Blood Count 8.32 K/uL (4.8-10.8)
[2019-12-10 07:44] LABS: Anisocytosis Present; Basophils # (auto) 0.02 K/uL (0-0.2); Basophils % (auto) 0.2 %; Eosinophils # (auto) 0.28 K/uL (0-0.5); Eosinophils % (auto) 3.4 %; Immature Granulocytes # (auto) 0.03 K/uL (0.00-0.02); Immature Granulocytes % (auto) 0.4 %; Lymphocytes # (auto) 2.17 K/uL (1.2-3.4); Lymphocytes % (auto) 26.1 %; Monocytes # (auto) 0.87 K/uL (0.11-0.59); Monocytes % (auto) 10.5 %; Neutrophils # (auto) 4.95 K/uL (1.4-6.5); Neutrophils % (auto) 59.4 %; Pappenheimer Bodies 1+; Polychromasia 1+; Sickle Cells 2+; Target Cells 1+
[2019-12-10] MEDS: GABAPENTIN 100 MG CAP PO SCH ×3 (08:44→21:21)
[2019-12-10] MEDS: busPIRone 5 MG TAB PO SCH ×3 (08:44→21:21)
[2019-12-10] MEDS: FOLIC ACID 1 MG TAB PO SCH (08:45)
[2019-12-10] MEDS: HYDROXYUREA 500 MG CAP PO SCH (08:46)
[2019-12-10] MEDS: SENNA 8.6 MG TAB PO SCH (08:46)
[2019-12-10] MEDS: DULoxetine HCL 30 MG CAP PO SCH (08:46)
[2019-12-10] MEDS: HEPARIN SOD 5,000 UNIT/0.5 ML VIAL SQ SCH ×3 (08:48→21:20)
--- NOTE | 2019-12-10 09:27 | Pain Management Progress Note ---
Date of Service December 10, 2019 Assessment & Plan (1) Sickle cell crisis: * Maintain hydromorphone at 0.2 mg q. 20 minutes without continuous. There appears to be no need for continuous infusion based on usage pattern. Continue to monitor usage and adjust accordingly. Consider transition to p.o. analgesics over the next 24 hours calculated based on utilization of hydromorphone over the preceding 24-hour timeframe.. * Consider further titration of gabapentin pending tolerability over the next few days (2) Vaso-occlusive sickle cell crisis: (3) Borderline personality disorder: (4) Depression: Active/Remission status: currently active Depression Type: major depressive disorder Major depression episode severity: severe Major depression recurrence: recurrent Psychotic features: without psychotic features Qualified Code(s): F33.2 - Major depressive disorder, recurrent severe without psychotic features (5) Suicide gesture: Encounter type: initial encounter Qualified Code(s): X83.8XXA - Intentional self-harm by other specified means, initial encounter Admission and Anticipated Discharge Date Admission Date: December 07, 2019 Subjective Patient is reporting improvement in her pain control over the past 24 hours with transitioning to SERVICE WRITER ADVISOR hydromorphone. She continues to report some moderate pain in her back and lower extremities in nondermatomal patterns which she describes as aching. Patient is rating her pain at a 5-6/10. Patient is questioning why there is no continuous hydromorphone as opposed to SERVICE WRITER ADVISOR. She wishes that her pain control was further improved. She reported no side effects from hydromorphone SERVICE WRITER ADVISOR. Patient denies change in location or characteristic of her typical pain complaints. He she reported no further constitutional complaints at this time. Plan of care discussed with Dr. Monica Murguia. Pain Assessment Pain Assessment Pain scale - at its best (0-10): 5 Pain scale - at its worst (0-10): 7 Physical Exam Physical Exam: General: Patient was lying quietly upon in the room in no acute distress. Patient more interactive today compared to yesterday. Speech and thought process appropriate. Cognition intact. Lower extremities: Nontender to palpation. No evidence of edema. Sensation intact. Neurologically: Cranial nerves grossly intact. Ambulation not witnessed.
--- NOTE | 2019-12-10 17:39 | Hospitalist Progress Note ---
Date of Service December 10, 2019 Assessment & Plan (1) Sickle cell crisis: * Maintain hydromorphone at 0.2 mg q. 20 minutes without continuous. There appears to be no need for continuous infusion based on usage pattern. Continue to monitor usage and adjust accordingly. Consider transition to p.o. analgesics over the next 24 hours calculated based on utilization of hydromorphone over the preceding 24-hour timeframe.. * Consider further titration of gabapentin pending tolerability over the next few days (2) Vaso-occlusive sickle cell crisis: (3) Borderline personality disorder: Continue duloxetine 20 mg daily and buspirone Changed Cymbalta to 20mg PO qam and 10 mg PO qpm to help with pain modulation (4) Depression: Patient with history of borderline personality disorder, depression, prior SI. She was recently hospitalized for for SA--intentional overdose--with d/c on 11/30 from our psych tx unit at [facility] Ppx - Low risk for DVT. Encourage ambulation Code - Full per discussion with patient Dispo - Admit to medical (5) Suicide gesture: Admission and Anticipated Discharge Date Admission Date: December 07, 2019 Subjective Pt states she is still having pain, but better. The worst pain is in her legs, followed by her arms. Still with pain to her chest as well. No appetite. Her sister brought her take out, but she did not eat much. She states this happens with her sickle cell crisis flares. She did not have nausea today. She feels SOB at times. Pt denies fever, chest pain, abd pain, v/c/d, LE pain or swelling. Review of Systems Review of Systems: Pertinent positives and negatives reviewed in HPI--all others negative Physical Exam Constitutional: WD/WN, vitals as above (resting comfortably when I walk into room) Eyes: normal visual sharma by confrontation and + anicteric sclerae Neck: normal visual inspection and trachea midline Respiratory: normal respiratory effort, lungs clear to auscultation Cardiovascular: Rate/Rhythm: regular rate and regular rhythm Gastrointestinal (Abdomen): Inspection/Auscultation: abdomen not distended Percussion/Palpation: abdomen soft; abdomen nontender Musculoskeletal: Head/Neck/Chest: normocephalic and head atraumatic negative for edema, peripheral pulses intact Skin: no rashes, warm and dry Neurologic: awake; not confused Speech / Cognition: normal speech Psychiatric: A+Ox3, euthymic affect Results & Data Results & Data ([facility]) Vital Signs (Past 12 Hours) Vital Signs Temp Pulse Pulse Resp BP BP Pulse Ox 12/10/19 15:02 36.8 C 65 16 112/75 98 12/10/19 12:17 36.7 C 71 20 94/58 L 100 12/10/19 07:12 36.9 C 84 16 124/67 97 12/10/19 05:50 37.5 C 89 PG Care Time/CCT Total # of Minutes Spent Total Time Spent with Patient: Total time spent is greater than 50% in coordination of care (as documented) at patient's floor/unit and/or counseling patient: Coding Level of Care Code 18314 Subseq Hosp Care Lvl 3 Diagnoses Sickle cell crisis D57.00 Vaso-occlusive sickle cell crisis D57.00 Borderline personality disorder F60.3 Depression F33.2 Active/Remission status: currently active Depression Type: major depressive disorder Major depression episode severity: severe Major depression recurrence: recurrent Psychotic features: without psychotic features Suicide gesture X83.8XXA Encounter type: initial encounter (1) Depression Active/Remission status: currently active Depression Type: major depressive disorder Major depression episode severity: severe Major depression recurrence: recurrent Psychotic features: without psychotic features Qualified Code(s): F33.2 - Major depressive disorder, recurrent severe without psychotic features (2) Suicide gesture Encounter type: initial encounter Qualified Code(s): X83.8XXA - Intentional self-harm by other specified means, initial encounter
[2019-12-10] MEDS: ACETAMINOPHEN 325 MG TAB PO PRN (20:09)
[2019-12-10] MEDS: NALOXONE HCL 0.4 MG/1 ML VIAL/CARP IV PRN ×2 (20:31→20:35)
[2019-12-11] MEDS: ONDANSETRON INJ 2 MG/ML 2 ML VIAL IV PRN (02:09)
[2019-12-11] MEDS: SODIUM CHLORIDE 0.9% 1000ML 1,000 ML IV SCH ×5 (05:12→19:00)
[2019-12-11 06:11] LABS: 18KDIGG Band REACTIVE; 23KDIGG Band REACTIVE; 23KDIGM Band NON-REACTIVE; 28KDIGG Band NON-REACTIVE; 30KDIGG Band NON-REACTIVE; 39KDIGG Band REACTIVE; 39KDIGM Band NON-REACTIVE; 41KDIGG Band REACTIVE; 41KDIGM Band NON-REACTIVE; 45KDIGG Band NON-REACTIVE; 58KDIGG Band REACTIVE; 66KDIGG Band NON-REACTIVE; 93KDIGG Band REACTIVE; Lyme Antibodies, WB IgG POSITIVE (NEGATIVE); Lyme Antibodies, WB IgM NEGATIVE (NEGATIVE)
[2019-12-11 07:30] LABS: Hemoglobin 7.2 g/dL (12.0-16.0); Mean Corpuscular Volume 97.1 fL (80-100); Mean Platelet Volume 9.6 fL (7.4-10.4); Nucleated RBC # (auto) 0.06 K/uL (0-0); Nucleated RBC % (auto) 0.9 %; Platelet Count 371 K/uL (130-400); RDW Standard Deviation 73.9 fL (36.4-46.3); Red Blood Count 2.06 M/uL (4.2-5.4); White Blood Count 6.19 K/uL (4.8-10.8)
[2019-12-11 08:37] LABS: Anisocytosis Present; Basophils # (auto) 0.02 K/uL (0-0.2); Basophils % (auto) 0.3 %; Eosinophils # (auto) 0.25 K/uL (0-0.5); Immature Granulocytes # (auto) 0.02 K/uL (0.00-0.02); Immature Granulocytes % (auto) 0.3 %; Lymphocytes % (auto) 29.1 %; Monocytes # (auto) 0.52 K/uL (0.11-0.59); Monocytes % (auto) 8.4 %; Neutrophils # (auto) 3.58 K/uL (1.4-6.5); Neutrophils % (auto) 57.9 %; Pappenheimer Bodies 1+; Polychromasia 1+; Sickle Cells 1+; Target Cells 1+
[2019-12-11] MEDS: GABAPENTIN 100 MG CAP PO SCH ×3 (08:47→20:34)
[2019-12-11] MEDS: SENNA 8.6 MG TAB PO SCH (08:48)
[2019-12-11] MEDS: HYDROXYUREA 500 MG CAP PO SCH (08:48)
[2019-12-11] MEDS: DULoxetine HCL 30 MG CAP PO SCH (08:49)
[2019-12-11] MEDS: FOLIC ACID 1 MG TAB PO SCH (08:49)
[2019-12-11] MEDS: busPIRone 5 MG TAB PO SCH ×3 (08:49→20:33)
[2019-12-11] MEDS: HEPARIN SOD 5,000 UNIT/0.5 ML VIAL SQ SCH ×2 (08:50→20:33)
[2019-12-11] MEDS: KETOROLAC TROMETHAMINE 15 MG/ML VIAL IV PRN ×3 (08:52→20:34)
[2019-12-11] MEDS ORDERED: GABAPENTIN 100 MG CAP PO ONE (15:08)
[2019-12-11] MEDS ORDERED: Nursing to Pharmacy Communication SCH (15:45)
--- NOTE | 2019-12-11 19:09 | Hospitalist Progress Note ---
Date of Service December 11, 2019 Assessment & Plan (1) Sickle cell crisis: * Maintain hydromorphone at 0.2 mg q. 20 minutes without continuous. There appears to be no need for continuous infusion based on usage pattern. Continue to monitor usage and adjust accordingly. Consider transition to p.o. analgesics over the next 24 hours calculated based on utilization of hydromorphone over the preceding 24-hour timeframe.. * Consider further titration of gabapentin pending tolerability over the next few days * * Increased gabapentin to 200mg TID starting with afternoon dose on 12/10 * Discussed current hydromorphone use with pharmacy in an attempt to utilize PO, recs for dilaudid 8mg Q6h PO vs oxycodone IR 15mg Qhr * Attempting use of oxycodone. Given pt's recent SI, will not be able to send home with pain medication. Flare needs to be controlled prior to d/c (2) Vaso-occlusive sickle cell crisis: (3) Borderline personality disorder: Continue duloxetine 20 mg daily and buspirone Changed Cymbalta to 20mg PO qam and 10 mg PO qpm to help with pain modulation (4) Depression: Patient with history of borderline personality disorder, depression, prior SI. She was recently hospitalized for for SA--intentional overdose--with d/c on 11/30 from our psych tx unit at [facility] Ppx - Low risk for DVT. Encourage ambulation Code - Full per discussion with patient Dispo - Admit to medical (5) Suicide gesture: Admission and Anticipated Discharge Date Admission Date: December 07, 2019 Subjective Pt states she is still having pain, worse today. Ongoing pain is in her legs, followed by her arms. Still with pain to her chest as well. Appetite is still low, but she did eat a few more bites today. No nausea. She feels SOB at times. Pt denies fever, abd pain, v/c/d, LE swelling. Review of Systems Review of Systems: Pertinent positives and negatives reviewed in HPI--all others negative Physical Exam Constitutional: WD/WN, vitals as above (resting comfortably when I walk into room) Eyes: normal visual sharma by confrontation and + anicteric sclerae Neck: normal visual inspection and trachea midline Respiratory: normal respiratory effort, lungs clear to auscultation Cardiovascular: Rate/Rhythm: regular rate and regular rhythm Gastrointestinal (Abdomen): Inspection/Auscultation: abdomen not distended Percussion/Palpation: abdomen soft; abdomen nontender Musculoskeletal: Head/Neck/Chest: normocephalic and head atraumatic Skin: no rashes, warm and dry Neurologic: awake; not confused Speech / Cognition: normal speech Psychiatric: A+Ox3, euthymic affect Results & Data Results & Data ([facility]) Vital Signs (Past 12 Hours) Vital Signs Temp Pulse Pulse Resp BP Pulse Ox 12/11/19 12:46 37.3 C 90 18 108/64 91 12/11/19 10:59 37.1 C 76 18 117/74 92 PG Care Time/CCT Total # of Minutes Spent Total Time Spent with Patient: Total time spent is greater than 50% in coordination of care (as documented) at patient's floor/unit and/or counseling patient: Coding Level of Care Code 97796 Subseq Hosp Care Lvl 3 Diagnoses Sickle cell crisis D57.00 Vaso-occlusive sickle cell crisis D57.00 Borderline personality disorder F60.3 Depression F33.2 Active/Remission status: currently active Depression Type: major depressive disorder Major depression episode severity: severe Major depression recurrence: recurrent Psychotic features: without psychotic features Suicide gesture X83.8XXA Encounter type: initial encounter (1) Depression Active/Remission status: currently active Depression Type: major depressive disorder Major depression episode severity: severe Major depression recurrence: recurrent Psychotic features: without psychotic features Qualified Code(s): F33.2 - Major depressive disorder, recurrent severe without psychotic features (2) Suicide gesture Encounter type: initial encounter Qualified Code(s): X83.8XXA - Intentional self-harm by other specified means, initial encounter
[2019-12-12] MEDS: SODIUM CHLORIDE 0.9% 1000ML 1,000 ML IV SCH ×4 (02:54→11:25)
[2019-12-12] MEDS: KETOROLAC TROMETHAMINE 15 MG/ML VIAL IV PRN ×3 (04:23→21:43)
[2019-12-12 07:33] LABS: Hematocrit (blood only) 18.6 % (37-47); Hemoglobin 6.6 g/dL (12.0-16.0); Mean Corpuscular Hemoglobin 35.1 pg (25-34); Mean Corpuscular Hgb Conc 35.5 g/dL (32-36); Mean Corpuscular Volume 98.9 fL (80-100); Nucleated RBC # (auto) 0.12 K/uL (0-0); Nucleated RBC % (auto) 1.7 %; Platelet Count 389 K/uL (130-400); RDW Coefficient of Variation 21.1 % (11.5-14.5); RDW Standard Deviation 73.9 fL (36.4-46.3); Red Blood Count 1.88 M/uL (4.2-5.4); White Blood Count 6.76 K/uL (4.8-10.8)
[2019-12-12 08:15] LABS: Anisocytosis Present; Basophils # (auto) 0.04 K/uL (0-0.2); Basophils % (auto) 0.6 %; Eosinophils # (auto) 0.32 K/uL (0-0.5); Eosinophils % (auto) 4.7 %; Howell-Jolly Bodies 1+; Immature Granulocytes # (auto) 0.03 K/uL (0.00-0.02); Immature Granulocytes % (auto) 0.4 %; Lymphocytes # (auto) 3.73 K/uL (1.2-3.4); Lymphocytes % (auto) 55.2 %; Monocytes # (auto) 0.56 K/uL (0.11-0.59); Monocytes % (auto) 8.3 %; Neutrophils # (auto) 2.08 K/uL (1.4-6.5); Neutrophils % (auto) 30.8 %; Polychromasia 1+; Sickle Cells 2+; Target Cells 2+
[2019-12-12] MEDS: SENNA 8.6 MG TAB PO SCH (08:21)
[2019-12-12] MEDS: HYDROXYUREA 500 MG CAP PO SCH (08:21)
[2019-12-12] MEDS: busPIRone 5 MG TAB PO SCH ×3 (08:21→20:25)
[2019-12-12] MEDS: DULoxetine HCL 30 MG CAP PO SCH (08:21)
[2019-12-12] MEDS: FOLIC ACID 1 MG TAB PO SCH (08:21)
[2019-12-12] MEDS: HEPARIN SOD 5,000 UNIT/0.5 ML VIAL SQ SCH ×3 (08:22→20:35)
[2019-12-12] MEDS: GABAPENTIN 100 MG CAP PO SCH ×3 (08:22→20:27)
[2019-12-12] MEDS: oxyCODONE HCL IR 5 MG TAB (IMMEDIATE RELEASE) PO PRN ×3 (08:24→20:28)
[2019-12-12] MEDS ORDERED: SODIUM CHLORIDE 0.9% 250 ML IV PRN (08:57)
[2019-12-12 09:22] LABS: Reticulocyte % 15.8 % (0.5-2.0); Reticulocytes # 0.3 10^6/uL (0.02-0.10)
--- NOTE | 2019-12-12 15:22 | Hospitalist Progress Note ---
Date of Service December 12, 2019 Assessment & Plan (1) Sickle cell crisis: * Maintain hydromorphone at 0.2 mg q. 20 minutes without continuous. There appears to be no need for continuous infusion based on usage pattern. Continue to monitor usage and adjust accordingly. Consider transition to p.o. analgesics over the next 24 hours calculated based on utilization of hydromorphone over the preceding 24-hour timeframe.. * Consider further titration of gabapentin pending tolerability over the next few days * * Increased gabapentin to 200mg TID starting with afternoon dose on 12/10 * Discussed current hydromorphone use with pharmacy in an attempt to utilize PO, recs for dilaudid 8mg Q6h PO vs oxycodone IR 15mg Qhr * Attempting use of oxycodone starting 12/10 PM. Given pt's recent SI, will not be able to send home with pain medication. Flare needs to be controlled prior to d/c * Will defer further changes to PM when they return * * Hb dropped to 6.6 today * 2 units ordered, last transfusion was at [facility] in August * Hem/onc c/s pending (2) Vaso-occlusive sickle cell crisis: (3) Borderline personality disorder: Continue duloxetine 20 mg daily and buspirone Changed Cymbalta to 20mg PO qam and 10 mg PO qpm to help with pain modulation (4) Depression: Patient with history of borderline personality disorder, depression, prior SI. She was recently hospitalized for for SA--intentional overdose--with d/c on 11/30 from our psych tx unit at [facility] Ppx - Low risk for DVT. Encourage ambulation Code - Full per discussion with patient Dispo - Admit to medical (5) Suicide gesture: Admission and Anticipated Discharge Date Admission Date: December 07, 2019 Subjective Pt seen early this AM and states she is having pain, but it is somewhat better than prior. Still intense and the worst is her LE. No SOB. Abd pain that is c/w prior episodes. Full abd, no specific location. Did have a few bites of food. Pt denies fever, n/v/c/d, LE swelling. Pt states she has had transfusions in the past, the last being in August at [facility] when she was hospitalized there for about 3 weeks. Called in the early afternoon by nursing as pt states she would like her dilaudid pump d/c'd due to it not working. Trial of PO meds and states no change. I came back to discuss with pt and woke her from such a deep sleep that she startled when I entered the room. Pt states she felt the morphine pump was better than the dilaudid pump and would like that back. Review of Systems Review of Systems: Pertinent positives and negatives reviewed in HPI--all others negative Physical Exam Constitutional: WD/WN, vitals as above (resting comfortably when I walk into room) Eyes: normal visual sharma by confrontation and + anicteric sclerae Neck: normal visual inspection and trachea midline Respiratory: normal respiratory effort, lungs clear to auscultation Cardiovascular: Rate/Rhythm: regular rate and regular rhythm Gastrointestinal (Abdomen): Inspection/Auscultation: abdomen not distended Percussion/Palpation: abdomen soft; abdomen nontender Musculoskeletal: Head/Neck/Chest: normocephalic and head atraumatic Skin: no rashes, warm and dry Neurologic: awake; not confused Speech / Cognition: normal speech Psychiatric: A+Ox3, euthymic affect Results & Data Results & Data ([facility]) Vital Signs (Past 12 Hours) Vital Signs Temp Pulse Pulse Resp BP Pulse Ox 12/12/19 11:26 36.9 C 52 L 16 105/62 98 12/12/19 07:15 36.6 C 52 L 16 123/77 98 12/12/19 03:38 36.7 C 65 16 108/61 98 PG Care Time/CCT Total # of Minutes Spent Total Time Spent with Patient: Total time spent is greater than 50% in coordination of care (as documented) at patient's floor/unit and/or counseling patient: Coding Level of Care Code 72714 Subseq Hosp Care Lvl 3 Diagnoses Sickle cell crisis D57.00 Vaso-occlusive sickle cell crisis D57.00 Borderline personality disorder F60.3 Depression F33.2 Active/Remission status: currently active Depression Type: major depressive disorder Major depression episode severity: severe Major depression recurrence: recurrent Psychotic features: without psychotic features Suicide gesture X83.8XXA Encounter type: initial encounter (1) Depression Active/Remission status: currently active Depression Type: major depressive disorder Major depression episode severity: severe Major depression recurrence: recurrent Psychotic features: without psychotic features Qualified Code(s): F33.2 - Major depressive disorder, recurrent severe without psychotic features (2) Suicide gesture Encounter type: initial encounter Qualified Code(s): X83.8XXA - Intentional self-harm by other specified means, initial encounter
[2019-12-12] MEDS: NALOXONE HCL 0.4 MG/1 ML VIAL/CARP IV PRN (16:00)
[2019-12-12] MEDS: ONDANSETRON INJ 2 MG/ML 2 ML VIAL IV PRN (21:42)
[2019-12-13] MEDS: oxyCODONE HCL IR 5 MG TAB (IMMEDIATE RELEASE) PO PRN ×3 (01:03→18:40)
[2019-12-13] MEDS: KETOROLAC TROMETHAMINE 15 MG/ML VIAL IV PRN (06:37)
[2019-12-13] MEDS: SODIUM CHLORIDE 0.9% 1000ML 1,000 ML IV SCH ×4 (07:02→18:40)
[2019-12-13 07:21] LABS: BUN Creatinine Ratio 10.6 (10-20); Blood Urea Nitrogen 5 mg/dl (7-18); Calcium 8.7 mg/dl (8.5-10.1); Carbon Dioxide 28 mmol/L (21-32); Chloride 105 mmol/L (98-107); Creatinine Clr Calc Pharmacy 188.1 ml/min; Est GFR (African American) > 150.0; Est GFR (Non-African American) 142.2; Glucose 82 mg/dl (70-99); Potassium 3.9 mmol/L (3.5-5.1); Sodium 138 mmol/L (136-145)
[2019-12-13 07:27] LABS: Hematocrit (blood only) 22.4 % (37-47); Hemoglobin 8.2 g/dL (12.0-16.0); Mean Corpuscular Hemoglobin 33.9 pg (25-34); Mean Corpuscular Hgb Conc 36.6 g/dL (32-36); Mean Corpuscular Volume 92.6 fL (80-100); Nucleated RBC # (auto) 0.13 K/uL (0-0); Platelet Count 336 K/uL (130-400); RDW Coefficient of Variation 21.6 % (11.5-14.5); RDW Standard Deviation 70.8 fL (36.4-46.3); Red Blood Count 2.42 M/uL (4.2-5.4); White Blood Count 6.69 K/uL (4.8-10.8)
[2019-12-13 07:41] LABS: Anisocytosis Present; Basophils # (auto) 0.04 K/uL (0-0.2); Basophils % (auto) 0.6 %; Eosinophils # (auto) 0.38 K/uL (0-0.5); Eosinophils % (auto) 5.7 %; Immature Granulocytes # (auto) 0.02 K/uL (0.00-0.02); Immature Granulocytes % (auto) 0.3 %; Lymphocytes # (auto) 3.16 K/uL (1.2-3.4); Lymphocytes % (auto) 47.2 %; Monocytes # (auto) 0.52 K/uL (0.11-0.59); Monocytes % (auto) 7.8 %; Neutrophils # (auto) 2.57 K/uL (1.4-6.5); Neutrophils % (auto) 38.4 %; Pappenheimer Bodies 1+; Polychromasia 1+; Sickle Cells 2+; Target Cells 2+
[2019-12-13] MEDS: HYDROXYUREA 500 MG CAP PO SCH (08:45)
[2019-12-13] MEDS: ACETAMINOPHEN 325 MG TAB PO PRN (08:45)
[2019-12-13] MEDS: HEPARIN SOD 5,000 UNIT/0.5 ML VIAL SQ SCH ×2 (08:46→20:23)
[2019-12-13] MEDS: GABAPENTIN 100 MG CAP PO SCH ×3 (08:46→20:23)
[2019-12-13] MEDS: busPIRone 5 MG TAB PO SCH ×3 (08:46→20:23)
[2019-12-13] MEDS: SENNA 8.6 MG TAB PO SCH (08:47)
[2019-12-13] MEDS: FOLIC ACID 1 MG TAB PO SCH (08:47)
[2019-12-13] MEDS: DULoxetine HCL 30 MG CAP PO SCH (08:48)
[2019-12-13] MEDS ORDERED: NALOXONE HCL 0.4 MG/1 ML VIAL/CARP IV PRN (10:05)
[2019-12-13] MEDS ORDERED: MoRPHine SULFATE 4 MG/ML 1 ML CARP\\VIAL IV STA (10:06)
--- NOTE | 2019-12-13 10:17 | Hospitalist Progress Note ---
Date of Service December 13, 2019 Assessment & Plan (1) Sickle cell crisis: 19 yo F with hx Sickle cell disease, Borderline Personality Disorder, multiple suicide attempts admitted for acute sickle cell crisis. 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 negative for etiology of seizure-like activity - do not narcan for seizure-like activity - call/page physician national sales manager if concerned that pt is having a seizure and ensure that patient remains safe during seizure 3) Sickle Cell Anemia - Hg 8.8 s/p transfusion 2 u pRBC - Transfusion threshold Hg <7 4) Borderline PD - buspar 10 mg PO TID - duloxetine 30 mg PO AM - multiple suicide attempts including while on hospital quinones - will need d/c plan with someone else (roommate, sister) managing her pain medication DVT ppx: contraindicated in sickle cell anemia FEN/GI: regular diet, NS @ 125 ml/hr Q24H Code status: Full Code (2) Pseudoseizures: (3) Anemia: Admission and Anticipated Discharge Date Admission Date: December 07, 2019 Supervising Physician Co-Signing Physician Notes I personally examined the patient and verified all amaro points of history and exam, discussed case, and agree with decision making with Dr Bailey pain was uncontrolled this AM - morphine MOLD MECHANIC resumed. when i see her she is sleepign comfortably - easily awakens but notes that this is the first sleep she's gotten given pain was keeping her awake vitals noted nad heent nc at mmm breathing unlabored no accessory msucles good effort skin no pallor sickle cell crisis -pain control, fluids, hydroxyurea, time. -continue to follow closely -required transfusion - first in a few months, but at least second one this year Subjective Feeling like pain uncontrolled this morning. Says it was previously getting better on the dilaudid MOLD MECHANIC but after it was discontinued last night she had recurrent pain that worsened. Says it currently is at the same level as at the time of admission. states the morphine manager building usually works better for her than dilaudid. Review of Systems Constitutional: + body aches; no fever Respiratory: + pain on inspiration; no cough, no dyspnea and no wheezing Cardiovascular: + chest pain at rest (chest pressure/tightness); no palpitations and no edema Neurologic: no tingling and no numbness Physical Exam Physical Exam: Constitutional: in no apparent distress, sitting comfortably in bed. Cardiac: RRR, no gallops or rubs. Normal S1, S2 Pulm: CTA BL, no wheezes, rhonchi, crackles or rubs, moving air well throughout both lungs Abd: soft, nontender, nondistended, normal bowel sounds, no rebound or guarding Extremities: 2+ peripheral pulses, no edema Neuro: no focal deficits, moving all 4 limbs, A&Ox3 Results & Data Results & Data ([facility]) Vital Signs (Past 12 Hours) Vital Signs Temp Pulse Pulse Resp BP BP Pulse Ox 12/13/19 07:28 94 12/13/19 07:24 36.8 C 47 L 16 146/83 H 86 L 12/13/19 00:00 36.7 C 74 16 128/77 92 12/12/19 23:48 37.0 C 68 17 132/82 94 12/12/19 22:48 37.2 C 72 17 126/72 96 12/12/19 22:18 36.9 C 67 16 122/78 96 Laboratory Results WBC 6.69 K/uL (4.8-10.8) 12/13/19 07:01 RBC 2.42 M/uL (4.2-5.4) L 12/13/19 07:01 Hgb 8.2 g/dL (12.0-16.0) L 12/13/19 07:01 Hct 22.4 % (37-47) L 12/13/19 07:01 MCV 92.6 fL (80-100) D 12/13/19 07:01 MCH 33.9 pg (25-34) 12/13/19 07:01 MCHC 36.6 g/dL (32-36) H 12/13/19 07:01 RDW Std Deviation 70.8 fL (36.4-46.3) H 12/13/19 07:01 RDW Coeff of Nando 21.6 % (11.5-14.5) H 12/13/19 07:01 Plt Count 336 K/uL (130-400) 12/13/19 07:01 MPV 9.0 fL (7.4-10.4) 12/13/19 07:01 Immature Gran % (Auto) 0.3 % 12/13/19 07:01 Neut % (Auto) 38.4 % 12/13/19 07:01 Lymph % (Auto) 47.2 % 12/13/19 07:01 Brown % (Auto) 7.8 % 12/13/19 07:01 Eos % (Auto) 5.7 % 12/13/19 07:01 Baso % (Auto) 0.6 % 12/13/19 07:01 Reticulocyte % (Auto) 15.8 % (0.5-2.0) H 12/12/19 09:08 Neut # (Auto) 2.57 K/uL (1.4-6.5) 12/13/19 07:01 Lymph # (Auto) 3.16 K/uL (1.2-3.4) 12/13/19 07:01 Brown # (Auto) 0.52 K/uL (0.11-0.59) 12/13/19 07:01 Eos # (Auto) 0.38 K/uL (0-0.5) 12/13/19 07:01 Baso # (Auto) 0.04 K/uL (0-0.2) 12/13/19 07:01 Reticulocyte # 0.30 10^6/uL (0.02-0.10) H 12/12/19 09:08 Immature Gran # (Auto) 0.02 K/uL (0.00-0.02) 12/13/19 07:01 Absolute Nucleated RBC 0.13 K/uL (0-0) H 12/13/19 07:01 Nucleated RBC % (auto) 2.0 % 12/13/19 07:01 Neutrophils % (Manual) Cancelled 12/13/19 06:36 Band Neutrophils % Cancelled 12/13/19 06:36 Lymphocytes % (Manual) Cancelled 12/13/19 06:36 Prolymphocyte % Cancelled 12/13/19 06:36 Reactive Lymphs % (Man) Cancelled 12/13/19 06:36 Monocytes % (Manual) Cancelled 12/13/19 06:36 Eosinophils % (Manual) Cancelled 12/13/19 06:36 Basophils % (Manual) Cancelled 12/13/19 06:36 Metamyelocytes % (Man) Cancelled 12/13/19 06:36 Myelocytes % (Man) Cancelled 12/13/19 06:36 Promyelocytes % (Man) Cancelled 12/13/19 06:36 Blast Cells % (Manual) Cancelled 12/13/19 06:36 Plasma Cell % (Manual) Cancelled 12/13/19 06:36 Other Cells % Cancelled 12/13/19 06:36 Nucleated RBC % Cancelled 12/13/19 06:36 Neutrophils # (Manual) Cancelled 12/13/19 06:36 Band Neutrophils # Cancelled 12/13/19 06:36 Total Absolute Neuts Cancelled 12/13/19 06:36 Lymphocytes # (Manual) Cancelled 12/13/19 06:36 Prolymphocyte # Cancelled 12/13/19 06:36 Reactive Lymphs # Cancelled 12/13/19 06:36 Total Abs Lymphocytes Cancelled 12/13/19 06:36 Monocytes # (Manual) Cancelled 12/13/19 06:36 Eosinophils # (Manual) Cancelled 12/13/19 06:36 Basophils # (Manual) Cancelled 12/13/19 06:36 Metamyelocytes # (Man) Cancelled 12/13/19 06:36 Myelocytes # (Manual) Cancelled 12/13/19 06:36 Promyelocytes # (Man) Cancelled 12/13/19 06:36 Blast Cells # (Man) Cancelled 12/13/19 06:36 Plasma Cell # (Manual) Cancelled 12/13/19 06:36 Other Cells # Cancelled 12/13/19 06:36 Nucleated RBCs # (Man) Cancelled 12/13/19 06:36 Hypersegmented Neuts Cancelled 12/13/19 06:36 Hyposegmented Neuts Cancelled 12/13/19 06:36 Hypogranular Neuts Cancelled 12/13/19 06:36 Large Granular Lymphs Cancelled 12/13/19 06:36 # Lrg Granular Lymphs Cancelled 12/13/19 06:36 Hairy Cells Cancelled 12/13/19 06:36 Smudge Cells Cancelled 12/13/19 06:36 Toxic Granulation Cancelled 12/13/19 06:36 Toxic Vacuolation Cancelled 12/13/19 06:36 Dohle Bodies Cancelled 12/13/19 06:36 Coral Rods Cancelled 12/13/19 06:36 Platelet Estimate Cancelled 12/13/19 06:36 Hypogranular Platelets Cancelled 12/13/19 06:36 Clumped Platelets Cancelled 12/13/19 06:36 Giant Platelets Cancelled 12/13/19 06:36 Platelet Satelliting Cancelled 12/13/19 06:36 RBC Morphology Cancelled 12/13/19 06:36 Polychromasia 1+ 12/13/19 07:01 Hypochromasia Cancelled 12/13/19 06:36 Poikilocytosis Cancelled 12/13/19 06:36 Basophilic Stippling Cancelled 12/13/19 06:36 Anisocytosis Present 12/13/19 07:01 Microcytosis Cancelled 12/13/19 06:36 Macrocytosis Cancelled 12/13/19 06:36 Spherocytes Cancelled 12/13/19 06:36 Pappenheimer Bodies 1+ 12/13/19 07:01 Sickle Cells 2+ 12/13/19 07:01 Target Cells 2+ 12/13/19 07:01 Tear Drop Cells Cancelled 12/13/19 06:36 Ovalocytes Cancelled 12/13/19 06:36 Stomatocytes Cancelled 12/13/19 06:36 [place] Bodies Cancelled 12/13/19 06:36 Echinocytes Cancelled 12/13/19 06:36 Acanthocytes (Spur) Cancelled 12/13/19 06:36 Rouleaux Cancelled 12/13/19 06:36 RBC Agglutinates Cancelled 12/13/19 06:36 Schistocytes Cancelled 12/13/19 06:36 RBC Morph Comment Cancelled 12/13/19 06:36 Sezary Cell Cancelled 12/13/19 06:36 Sodium 138 mmol/L (136-145) 12/13/19 06:36 Potassium 3.9 mmol/L (3.5-5.1) 12/13/19 06:36 Chloride 105 mmol/L (98-107) 12/13/19 06:36 Carbon Dioxide 28 mmol/L (21-32) 12/13/19 06:36 Anion Gap 5.0 (3-11) 12/13/19 06:36 BUN 5 mg/dl (7-18) L 12/13/19 06:36 Creatinine 0.46 mg/dl (0.6-1.2) L 12/13/19 06:36 Est Cr Clr Drug Dosing 188.1 ml/min 12/13/19 06:36 Est GFR ( Amer) > 150.0 12/13/19 06:36 Est GFR (Non-Af Amer) 142.2 12/13/19 06:36 BUN/Creatinine Ratio 10.6 (-20) 12/13/19 06:36 Glucose 82 mg/dl (70-99) 12/13/19 06:36 POC Glucose 95 mg/dl (70-99) 12/12/19 15:59 Calcium 8.7 mg/dl (8.5-10.1) 12/13/19 06:36 Magnesium 2.0 mg/dl (1.8-2.4) 12/07/19 14:06 Total Bilirubin 2.9 mg/dl (0.2-1) H D 12/09/19 14:31 Direct Bilirubin 0.5 mg/dl (0-0.2) H D 12/09/19 14:31 AST 36 U/L (15-37) 12/09/19 14:31 ALT 21 U/L (12-78) 12/09/19 14:31 Alkaline Phosphatase 78 U/L (45-117) 12/09/19 14:31 Troponin I < 0.015 ng/ml (0-0.045) 12/07/19 14:06 Total Protein 7.2 gm/dl (6.4-8.2) 12/09/19 14:31 Albumin 3.2 gm/dl (3.4-5.0) L 12/09/19 14:31 Globulin 4.2 gm/dl (2.5-4.0) H 12/07/19 14:06 Albumin/Globulin Ratio 0.9 (0.9-2) 12/07/19 14:06 Lipase 119 U/L (73-393) 12/07/19 14:06 TSH 2.620 uIu/ml (0.300-4.500) 12/07/19 14:06 HCG, Qual Negative (Negative) 12/07/19 14:06 Urine Color Yellow 12/07/19 18:30 Urine Appearance Clear (Clear) 12/07/19 18:30 Urine pH 6.0 (4.5-7.5) 12/07/19 18:30 Ur Specific Wallace 1.013 (1.000-1.030) 12/07/19 18:30 Urine Protein Negative (Negative) 12/07/19 18:30 Urine Glucose (UA) Negative (Negative) 12/07/19 18:30 Urine Ketones Negative (Negative) 12/07/19 18:30 Urine Blood Trace (Negative) H 12/07/19 18:30 Urine Nitrite Negative (Negative) 12/07/19 18:30 Urine Bilirubin Negative (Negative) 12/07/19 18:30 Urine Urobilinogen Negative (Negative) 12/07/19 18:30 Ur Leukocyte Esterase Negative (Negative) 12/07/19 18:30 Urine WBC (Auto) 1-5 /hpf (0-5) 12/07/19 18:30 Urine RBC (Auto) 5-10 /hpf (0-4) H 12/07/19 18:30 U Hyaline Cast (Auto) 1-5 /lpf (0-5) 12/07/19 18:30 U Epithel Cells (Auto) 10-20 /lpf (0-5) H 12/07/19 18:30 Urine Bacteria (Auto) Negative (Negative) 12/07/19 18:30 Urine Test Negative (Negative) 12/08/19 Unknown Lyme Disease IgG Ab Positive (Negative) A 12/07/19 14:06 Lyme IgG (Western Blot) POSITIVE (NEGATIVE) A 12/07/19 14:06 Lyme IgG 18 kDa Band REACTIVE A 12/07/19 14:06 Lyme IgG 23 kDa Band REACTIVE A 12/07/19 14:06 Lyme IgG 28 kDa Band NON-REACTIVE 12/07/19 14:06 Lyme IgG 30 kDa Band NON-REACTIVE 12/07/19 14:06 Lyme IgG 39 kDa Band REACTIVE A 12/07/19 14:06 Lyme IgG 41 kDa Band REACTIVE A 12/07/19 14:06 Lyme IgG 45 kDa Band NON-REACTIVE 12/07/19 14:06 Lyme IgG 58 kDa Band REACTIVE A 12/07/19 14:06 Lyme IgG 66 kDa Band NON-REACTIVE 12/07/19 14:06 Lyme IgG 93 kDa Band REACTIVE A 12/07/19 14:06 Lyme IgM Ab (WB) NEGATIVE (NEGATIVE) 12/07/19 14:06 Lyme Disease IgM Ab Negative (Negative) 12/07/19 14:06 Lyme IgM 23 kDa Band NON-REACTIVE 12/07/19 14:06 Lyme IgM 39 kDa Band NON-REACTIVE 12/07/19 14:06 Lyme IgM 41 kDa Band NON-REACTIVE 12/07/19 14:06 Blood Type B Positive 12/12/19 09:08 Antibody Screen NEGATIVE 12/12/19 09:08 Crossmatch See Detail 12/12/19 09:08 Resident Activity Tracking Resident Involvement: Resident Care Provided Care Provided: Adult Hospital Medicine (1) Anemia Anemia type: unspecified type Qualified Code(s): D64.9 - Anemia, unspecified
[2019-12-13] MEDS: MoRPHine SULFATE PCA 30 MG/30 ML IV PRN (11:05)
[2019-12-13] MEDS: ONDANSETRON INJ 2 MG/ML 2 ML VIAL IV PRN (13:33)
[2019-12-13] MEDS ORDERED: MELATONIN 3 MG TAB PO PRN (18:36)
--- NOTE | 2019-12-13 18:57 | Billing Data ---
Date of Service December 13, 2019 Coding Level of Care Code 20658 Subseq Hosp Care Lvl 3
--- NOTE | 2019-12-13 20:34 | Consultation Report ---
DATE OF CONSULTATION: 12/13/2019 HISTORY OF PRESENT ILLNESS: The patient is a 19-year-old with sickle cell crisis. She was admitted last week. The patient was given intravenous hydration, analgesics and blood transfusions. She was also continued on the hydroxyurea she takes. No coincident infections. The patient says she gets attacks fairly frequently. They are usually sickle cell crisis. No history of aplastic with hemolytic crisis. PHYSICAL EXAMINATION: Nonacute. Hematocrit 27, hemoglobin 9. IMPRESSION AND PLAN: The patient appears to be getting better. She should be able to go home in a day or 2. Until the crisis has completely resolved, I will keep her hematocrit between 25 and 30. The patient should be sent home on folic acid 1 mg a day as well as hydroxyurea at her usual dose and schedule. The patient should be given appointment to be followed as an outpatient in the hematology clinic. If she has not yet had vaccination for encapsulated bacteria, she should either get that now or when she goes to clinic as most sickle cell patients are functionally asplenic.
[2019-12-14] MEDS: SODIUM CHLORIDE 0.9% 1000ML 1,000 ML IV SCH ×4 (02:47→18:36)
[2019-12-14] MEDS: MoRPHine SULFATE PCA 30 MG/30 ML IV PRN (07:11)
[2019-12-14] MEDS: ACETAMINOPHEN 325 MG TAB PO PRN ×2 (07:15→15:31)
[2019-12-14] MEDS: HYDROXYUREA 500 MG CAP PO SCH (08:52)
[2019-12-14] MEDS: busPIRone 5 MG TAB PO SCH ×3 (08:52→21:25)
[2019-12-14] MEDS: SENNA 8.6 MG TAB PO SCH (08:52)
[2019-12-14] MEDS: DULoxetine HCL 30 MG CAP PO SCH (08:52)
[2019-12-14] MEDS: FOLIC ACID 1 MG TAB PO SCH (08:52)
[2019-12-14] MEDS: GABAPENTIN 100 MG CAP PO SCH ×3 (08:53→21:25)
[2019-12-14] MEDS: HEPARIN SOD 5,000 UNIT/0.5 ML VIAL SQ SCH ×2 (08:53→21:26)
[2019-12-14 09:20] LABS: Hematocrit (blood only) 23.9 % (37-47); Hemoglobin 8.4 g/dL (12.0-16.0); Mean Corpuscular Hemoglobin 32.8 pg (25-34); Mean Corpuscular Hgb Conc 35.1 g/dL (32-36); Mean Corpuscular Volume 93.4 fL (80-100); Mean Platelet Volume 9.6 fL (7.4-10.4); Nucleated RBC # (auto) 0.14 K/uL (0-0); Nucleated RBC % (auto) 1.7 %; Platelet Count 355 K/uL (130-400); RDW Coefficient of Variation 21.7 % (11.5-14.5); RDW Standard Deviation 73.1 fL (36.4-46.3); Red Blood Count 2.56 M/uL (4.2-5.4); White Blood Count 8.32 K/uL (4.8-10.8)
[2019-12-14 09:31] LABS: Anisocytosis Present; Basophils # (auto) 0.03 K/uL (0-0.2); Basophils % (auto) 0.4 %; Eosinophils % (auto) 3.6 %; Immature Granulocytes # (auto) 0.02 K/uL (0.00-0.02); Immature Granulocytes % (auto) 0.2 %; Lymphocytes # (auto) 1.78 K/uL (1.2-3.4); Lymphocytes % (auto) 21.4 %; Monocytes # (auto) 0.57 K/uL (0.11-0.59); Monocytes % (auto) 6.9 %; Neutrophils # (auto) 5.62 K/uL (1.4-6.5); Neutrophils % (auto) 67.5 %; Pappenheimer Bodies 1+; Polychromasia 1+; Sickle Cells 1+; Target Cells 1+
[2019-12-14 09:35] LABS: BUN Creatinine Ratio 8.6 (10-20); Blood Urea Nitrogen 5 mg/dl (7-18); Calcium 8.9 mg/dl (8.5-10.1); Carbon Dioxide 29 mmol/L (21-32); Chloride 104 mmol/L (98-107); Creatinine Clr Calc Pharmacy 163.3 ml/min; Est GFR (African American) > 150.0; Est GFR (Non-African American) 135.7; Glucose 85 mg/dl (70-99); Potassium 3.5 mmol/L (3.5-5.1); Sodium 138 mmol/L (136-145)
[2019-12-14 09:36] LABS: C Reactive Protein 6.06 mg/dl (0-0.29)
[2019-12-14] MEDS ORDERED: oxyCODONE/ACETAMINOPHEN 10-325 TAB PO ONE (17:07)
--- NOTE | 2019-12-14 19:10 | Hospitalist Progress Note ---
Date of Service December 14, 2019 Assessment & Plan (1) Sickle cell crisis: -ongoing uncontrolled pain - increase WORLD HISTORY TEACHER to 2mg q10min prn, but also lay foundation of pain control w percocet 10/325 TID scheduled. -continue to follow closely - right now while low grade temp concerning - lab w/u and exam reassuring, and no clear s/s bacterial infections or acute chest syndrome. continue to follow closely. (believes she is UTD on vaccines) -hydroxyurea (2) Elevated temperature: CRP non-bacterial elevation, procal neg, WBC normal and exam reassuring. no focal s/s c/w infection either. continued vigilance. (3) Pseudoseizures: Stable. Noted (4) Anemia: transfused. Hgb improved. follow. Admission and Anticipated Discharge Date Admission Date: December 07, 2019 Subjective still feeling significant pain - morphine WORLD HISTORY TEACHER helps some but not enough. feels liek not really improving w pain since yesterday. pain mostly in joints and legs/arms. worried about acute chest syndrome but only notes pain in chest when moving. no resting chest pain no sob. notes that she had ACS once before but does not relate that she's feeling like that now. low grade temp earlier today - felt it. no cough no sob. no other focal s/s. Review of Systems Review of Systems: All systems reviewed & are unremarkable except as noted in HPI & below Physical Exam Physical Exam: gen aaox3 pleasant nad until trying to move in bed or sit up - then groans in pain. heent nc at mmm lungs cta b/l no rr//w good effort skin no rashes no pallor or icterus. some pain moving L arm PROM at elbow otherwise no painful palpation. abd soft nd nt Results & Data Results & Data ([facility]) Vital Signs (Past 12 Hours) Vital Signs Temp Pulse Resp BP Pulse Ox 12/14/19 07:10 100.6 F H 65 18 138/78 98 PG Care Time/CCT Total # of Minutes Spent Total Time Spent with Patient: Total time spent is greater than 50% in coordination of care (as documented) at patient's floor/unit and/or counseling patient: Coding Level of Care Code 45094 Subseq Hosp Care Lvl 3 Diagnoses Sickle cell crisis D57.00 Elevated temperature R50.9 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 Anemia D64.9 Anemia type: unspecified type (1) Anemia Anemia type: unspecified type Qualified Code(s): D64.9 - Anemia, unspecified
[2019-12-14] MEDS: diphenhydrAMINE Capsule 25 MG CAP PO PRN (21:23)
[2019-12-14] MEDS: oxyCODONE/ACETAMINOPHEN 10-325 TAB PO SCH (21:30)
[2019-12-15] MEDS: SODIUM CHLORIDE 0.9% 1000ML 1,000 ML IV SCH ×4 (04:24→21:09)
[2019-12-15] MEDS: MoRPHine SULFATE PCA 30 MG/30 ML IV PRN ×2 (04:25→22:55)
[2019-12-15 05:33] LABS: Basophils # (auto) 0.02 K/uL (0-0.2); Basophils % (auto) 0.3 %; Eosinophils # (auto) 0.27 K/uL (0-0.5); Eosinophils % (auto) 4.6 %; Hematocrit (blood only) 24.5 % (37-47); Hemoglobin 8.7 g/dL (12.0-16.0); Immature Granulocytes # (auto) 0.01 K/uL (0.00-0.02); Immature Granulocytes % (auto) 0.2 %; Lymphocytes # (auto) 2.41 K/uL (1.2-3.4); Lymphocytes % (auto) 41.1 %; Mean Corpuscular Hemoglobin 33.6 pg (25-34); Mean Corpuscular Hgb Conc 35.5 g/dL (32-36); Mean Corpuscular Volume 94.6 fL (80-100); Mean Platelet Volume 9.8 fL (7.4-10.4); Monocytes # (auto) 0.49 K/uL (0.11-0.59); Monocytes % (auto) 8.4 %; Neutrophils # (auto) 2.66 K/uL (1.4-6.5); Neutrophils % (auto) 45.4 %; Nucleated RBC % (auto) 1.7 %; Platelet Count 352 K/uL (130-400); RDW Coefficient of Variation 21.5 % (11.5-14.5); RDW Standard Deviation 72.6 fL (36.4-46.3); Red Blood Count 2.59 M/uL (4.2-5.4); White Blood Count 5.86 K/uL (4.8-10.8)
[2019-12-15 06:19] LABS: Anisocytosis Present; Polychromasia 1+; Sickle Cells 1+; Target Cells 1+
--- NOTE | 2019-12-15 08:00 | Hospitalist Progress Note ---
Date of Service December 15, 2019 Assessment & Plan (1) Sickle cell crisis: 19 yo F with hx Sickle cell disease, Borderline Personality Disorder, multiple suicide attempts admitted for acute sickle cell crisis. Sickle Cell Crisis - Morphine BARIATRIC PROGRAM COORDINATOR 1 mg Q10min PRN - Narcan for oversomnolence - Q1H vital checks - continue 15 mg Toradol IV Q6, Roxicodone 15 mg Q4, Gabapentin 200 mg TID scheduled for pain control - 500 mg Hydroxyurea daily, 2 mg folic acid daily Fever of unwknown origin - CRP 6.06 yesterday - Procal <0.05 - temp 38.1 x 1 at 7am 12/13 - continue closely monitoring; no signs of increased O2 requirement/work of breathing, no signs of skin or soft tissue infection, Pseudoseizures - previous workup negative for etiology of seizure-like activity - do not narcan for seizure-like activity - call/page physician international flight attendant if concerned that pt is having a seizure and ensure that patient remains safe during seizure Sickle Cell Anemia - Hg 8.8 s/p transfusion 2 u pRBC - Transfusion threshold Hg <7 - hemeonc consulted; recommended hct 25- 30, d/c on folic acid as well as hyd roxyurea Borderline PD - buspar 10 mg PO TID - duloxetine 30 mg PO AM - multiple suicide attempts including while on hospital quinones - will need d/c plan with someone else (roommate, sister) managing her pain medication DVT ppx: contraindicated in sickle cell anemia FEN/GI: regular diet, NS @ 125 ml/hr Q24H Code status: Full Code (2) Pseudoseizures: Stable. Noted (3) Anemia: transfused. Hgb improved. follow. (4) Elevated temperature: (5) Borderline personality disorder: Admission and Anticipated Discharge Date Admission Date: December 07, 2019 Supervising Physician Co-Signing Physician Notes I personally examined the patient and verified all amaro points of history and exam, discussed case, and agree with decision making with Dr Leo chavarria doing better today! was also up and walking a little bit. seems to be feeling better vitals noted nad heent nc at mmm breathing unlabored no accessory muscles good effort skin no pallor sickle cell crisis -pain control, fluids, hydroxyurea, time. -continue to follow closely but seems to be improving -low grade temp yesterday but temp OK since and still no s/s infection -required transfusion - first in a few months, but at least second one this year Subjective [place] feverish yesterday. Denies chills, trouble breathing, night sweats. Pain still throughout. Had trouble sleeping overnight. Review of Systems Constitutional: + fever; no chills, no body aches and no fatigue Respiratory: no cough and no dyspnea Cardiovascular: no chest pain, no dyspnea and no edema Physical Exam Physical Exam: Constitutional: in no apparent distress, sitting comfortably in bed. Cardiac: RRR, no gallops or rubs. Normal S1, S2 Pulm: CTA BL, no wheezes, rhonchi, crackles or rubs, moving air well throughout both lungs Abd: soft, tender throughout, nondistended, normal bowel sounds, no rebound or guarding Extremities: 2+ peripheral pulses, no edema Neuro: no focal deficits, moving all 4 limbs, A&Ox3 Results & Data Results & Data ([facility]) Vital Signs (Past 12 Hours) Vital Signs Temp Pulse Pulse Resp BP Pulse Ox 12/15/19 07:52 36.4 C L 60 18 132/74 95 12/15/19 03:30 36.7 C 51 L 16 134/75 98 12/14/19 23:18 36.5 C 47 L 16 148/89 H 99 Laboratory Results WBC 5.86 K/uL (4.8-10.8) 12/15/19 05:23 RBC 2.59 M/uL (4.2-5.4) L 12/15/19 05:23 Hgb 8.7 g/dL (12.0-16.0) L 12/15/19 05:23 Hct 24.5 % (37-47) L 12/15/19 05:23 MCV 94.6 fL (80-100) 12/15/19 05:23 MCH 33.6 pg (25-34) 12/15/19 05:23 MCHC 35.5 g/dL (32-36) 12/15/19 05:23 RDW Std Deviation 72.6 fL (36.4-46.3) H 12/15/19 05:23 RDW Coeff of [place] 21.5 % (11.5-14.5) H 12/15/19 05:23 Plt Count 352 K/uL (130-400) 12/15/19 05:23 MPV 9.8 fL (7.4-10.4) 12/15/19 05:23 Immature Gran % (Auto) 0.2 % 12/15/19 05:23 Neut % (Auto) 45.4 % 12/15/19 05:23 Lymph % (Auto) 41.1 % 12/15/19 05:23 [place] % (Auto) 8.4 % 12/15/19 05:23 Eos % (Auto) 4.6 % 12/15/19 05:23 Baso % (Auto) 0.3 % 12/15/19 05:23 Reticulocyte % (Auto) 15.8 % (0.5-2.0) H 12/12/19 09:08 Neut # (Auto) 2.66 K/uL (1.4-6.5) 12/15/19 05:23 Lymph # (Auto) 2.41 K/uL (1.2-3.4) 12/15/19 05:23 [place] # (Auto) 0.49 K/uL (0.11-0.59) 12/15/19 05:23 Eos # (Auto) 0.27 K/uL (0-0.5) 12/15/19 05:23 Baso # (Auto) 0.02 K/uL (0-0.2) 12/15/19 05:23 Reticulocyte # 0.30 10^6/uL (0.02-0.10) H 12/12/19 09:08 Immature Gran # (Auto) 0.01 K/uL (0.00-0.02) 12/15/19 05:23 Absolute Nucleated RBC 0.10 K/uL (0-0) H 12/15/19 05:23 Nucleated RBC % (auto) 1.7 % 12/15/19 05:23 Neutrophils % (Manual) Cancelled 12/13/19 06:36 Band Neutrophils % Cancelled 12/13/19 06:36 Lymphocytes % (Manual) Cancelled 12/13/19 06:36 Prolymphocyte % Cancelled 12/13/19 06:36 Reactive Lymphs % (Man) Cancelled 12/13/19 06:36 Monocytes % (Manual) Cancelled 12/13/19 06:36 Eosinophils % (Manual) Cancelled 12/13/19 06:36 Basophils % (Manual) Cancelled 12/13/19 06:36 Metamyelocytes % (Man) Cancelled 12/13/19 06:36 Myelocytes % (Man) Cancelled 12/13/19 06:36 Promyelocytes % (Man) Cancelled 12/13/19 06:36 Blast Cells % (Manual) Cancelled 12/13/19 06:36 Plasma Cell % (Manual) Cancelled 12/13/19 06:36 Other Cells % Cancelled 12/13/19 06:36 Nucleated RBC % Cancelled 12/13/19 06:36 Neutrophils # (Manual) Cancelled 12/13/19 06:36 Band Neutrophils # Cancelled 12/13/19 06:36 Total Absolute Neuts Cancelled 12/13/19 06:36 Lymphocytes # (Manual) Cancelled 12/13/19 06:36 Prolymphocyte # Cancelled 12/13/19 06:36 Reactive Lymphs # Cancelled 12/13/19 06:36 Total Abs Lymphocytes Cancelled 12/13/19 06:36 Monocytes # (Manual) Cancelled 12/13/19 06:36 Eosinophils # (Manual) Cancelled 12/13/19 06:36 Basophils # (Manual) Cancelled 12/13/19 06:36 Metamyelocytes # (Man) Cancelled 12/13/19 06:36 Myelocytes # (Manual) Cancelled 12/13/19 06:36 Promyelocytes # (Man) Cancelled 12/13/19 06:36 Blast Cells # (Man) Cancelled 12/13/19 06:36 Plasma Cell # (Manual) Cancelled 12/13/19 06:36 Other Cells # Cancelled 12/13/19 06:36 Nucleated RBCs # (Man) Cancelled 12/13/19 06:36 Hypersegmented Neuts Cancelled 12/13/19 06:36 Hyposegmented Neuts Cancelled 12/13/19 06:36 Hypogranular Neuts Cancelled 12/13/19 06:36 Large Granular Lymphs Cancelled 12/13/19 06:36 # Lrg Granular Lymphs Cancelled 12/13/19 06:36 Hairy Cells Cancelled 12/13/19 06:36 Smudge Cells Cancelled 12/13/19 06:36 Toxic Granulation Cancelled 12/13/19 06:36 Toxic Vacuolation Cancelled 12/13/19 06:36 Dohle Bodies Cancelled 12/13/19 06:36 Coral Rods Cancelled 12/13/19 06:36 Platelet Estimate Cancelled 12/13/19 06:36 Hypogranular Platelets Cancelled 12/13/19 06:36 Clumped Platelets Cancelled 12/13/19 06:36 Giant Platelets Cancelled 12/13/19 06:36 Platelet Satelliting Cancelled 12/13/19 06:36 RBC Morphology Cancelled 12/13/19 06:36 Polychromasia 1+ 12/15/19 05:23 Hypochromasia Cancelled 12/13/19 06:36 Poikilocytosis Cancelled 12/13/19 06:36 Basophilic Stippling Cancelled 12/13/19 06:36 Anisocytosis Present 12/15/19 05:23 Microcytosis Cancelled 12/13/19 06:36 Macrocytosis Cancelled 12/13/19 06:36 Spherocytes Cancelled 12/13/19 06:36 Pappenheimer Bodies 1+ 12/14/19 08:47 Sickle Cells 1+ 12/15/19 05:23 Target Cells 1+ 12/15/19 05:23 Tear Drop Cells Cancelled 12/13/19 06:36 Ovalocytes Cancelled 12/13/19 06:36 Stomatocytes Cancelled 12/13/19 06:36 [place] Bodies Cancelled 12/13/19 06:36 Echinocytes Cancelled 12/13/19 06:36 Acanthocytes (Spur) Cancelled 12/13/19 06:36 Rouleaux Cancelled 12/13/19 06:36 RBC Agglutinates Cancelled 12/13/19 06:36 Schistocytes Cancelled 12/13/19 06:36 RBC Morph Comment Cancelled 12/13/19 06:36 Sezary Cell Cancelled 12/13/19 06:36 Sodium 138 mmol/L (136-145) 12/14/19 08:47 Potassium 3.5 mmol/L (3.5-5.1) 12/14/19 08:47 Chloride 104 mmol/L (98-107) 12/14/19 08:47 Carbon Dioxide 29 mmol/L (21-32) 12/14/19 08:47 Anion Gap 5.0 (3-11) 12/14/19 08:47 BUN 5 mg/dl (7-18) L 12/14/19 08:47 Creatinine 0.53 mg/dl (0.6-1.2) L 12/14/19 08:47 Est Cr Clr Drug Dosing 163.3 ml/min 12/14/19 08:47 Est GFR ( Amer) > 150.0 12/14/19 08:47 Est GFR (Non-Af Amer) 135.7 12/14/19 08:47 BUN/Creatinine Ratio 8.6 (-20) L 12/14/19 08:47 Glucose 85 mg/dl (70-99) 12/14/19 08:47 POC Glucose 95 mg/dl (70-99) 12/12/19 15:59 Calcium 8.9 mg/dl (8.5-10.1) 12/14/19 08:47 Magnesium 2.0 mg/dl (1.8-2.4) 12/07/19 14:06 Total Bilirubin 2.9 mg/dl (0.2-1) H D 12/09/19 14:31 Direct Bilirubin 0.5 mg/dl (0-0.2) H D 12/09/19 14:31 AST 36 U/L (15-37) 12/09/19 14:31 ALT 21 U/L (12-78) 12/09/19 14:31 Alkaline Phosphatase 78 U/L (45-117) 12/09/19 14:31 Troponin I < 0.015 ng/ml (0-0.045) 12/07/19 14:06 C-Reactive Protein 6.06 mg/dl (0-0.29) H 12/14/19 08:47 Total Protein 7.2 gm/dl (6.4-8.2) 12/09/19 14:31 Albumin 3.2 gm/dl (3.4-5.0) L 12/09/19 14:31 Globulin 4.2 gm/dl (2.5-4.0) H 12/07/19 14:06 Albumin/Globulin Ratio 0.9 (0.9-2) 12/07/19 14:06 Lipase 119 U/L (73-393) 12/07/19 14:06 Procalcitonin < 0.05 ng/ml (0-0.5) 12/14/19 08:47 TSH 2.620 uIu/ml (0.300-4.500) 12/07/19 14:06 HCG, Qual Negative (Negative) 12/07/19 14:06 Urine Color Yellow 12/07/19 18:30 Urine Appearance Clear (Clear) 12/07/19 18:30 Urine pH 6.0 (4.5-7.5) 12/07/19 18:30 Ur Specific [place] 1.013 (1.000-1.030) 12/07/19 18:30 Urine Protein Negative (Negative) 12/07/19 18:30 Urine Glucose (UA) Negative (Negative) 12/07/19 18:30 Urine Ketones Negative (Negative) 12/07/19 18:30 Urine Blood Trace (Negative) H 12/07/19 18:30 Urine Nitrite Negative (Negative) 12/07/19 18:30 Urine Bilirubin Negative (Negative) 12/07/19 18:30 Urine Urobilinogen Negative (Negative) 12/07/19 18:30 Ur Leukocyte Esterase Negative (Negative) 12/07/19 18:30 Urine WBC (Auto) 1-5 /hpf (0-5) 12/07/19 18:30 Urine RBC (Auto) 5-10 /hpf (0-4) H 12/07/19 18:30 U Hyaline Cast (Auto) 1-5 /lpf (0-5) 12/07/19 18:30 U Epithel Cells (Auto) 10-20 /lpf (0-5) H 12/07/19 18:30 Urine Bacteria (Auto) Negative (Negative) 12/07/19 18:30 Urine Test Negative (Negative) 12/08/19 Unknown Lyme Disease IgG Ab Positive (Negative) A 12/07/19 14:06 Lyme IgG (Western Blot) POSITIVE (NEGATIVE) A 12/07/19 14:06 Lyme IgG 18 kDa Band REACTIVE A 12/07/19 14:06 Lyme IgG 23 kDa Band REACTIVE A 12/07/19 14:06 Lyme IgG 28 kDa Band NON-REACTIVE 12/07/19 14:06 Lyme IgG 30 kDa Band NON-REACTIVE 12/07/19 14:06 Lyme IgG 39 kDa Band REACTIVE A 12/07/19 14:06 Lyme IgG 41 kDa Band REACTIVE A 12/07/19 14:06 Lyme IgG 45 kDa Band NON-REACTIVE 12/07/19 14:06 Lyme IgG 58 kDa Band REACTIVE A 12/07/19 14:06 Lyme IgG 66 kDa Band NON-REACTIVE 12/07/19 14:06 Lyme IgG 93 kDa Band REACTIVE A 12/07/19 14:06 Lyme IgM Ab (WB) NEGATIVE (NEGATIVE) 12/07/19 14:06 Lyme Disease IgM Ab Negative (Negative) 12/07/19 14:06 Lyme IgM 23 kDa Band NON-REACTIVE 12/07/19 14:06 Lyme IgM 39 kDa Band NON-REACTIVE 12/07/19 14:06 Lyme IgM 41 kDa Band NON-REACTIVE 12/07/19 14:06 Blood Type B Positive 12/12/19 09:08 Antibody Screen NEGATIVE 12/12/19 09:08 Crossmatch See Detail 12/12/19 09:08 Resident Activity Tracking Resident Involvement: Resident Care Provided Care Provided: Adult Hospital Medicine (1) Anemia Anemia type: unspecified type Qualified Code(s): D64.9 - Anemia, unspecified
[2019-12-15] MEDS: HYDROXYUREA 500 MG CAP PO SCH (09:03)
[2019-12-15] MEDS: FOLIC ACID 1 MG TAB PO SCH (09:03)
[2019-12-15] MEDS: oxyCODONE/ACETAMINOPHEN 10-325 TAB PO SCH ×3 (09:03→21:09)
[2019-12-15] MEDS: busPIRone 5 MG TAB PO SCH ×3 (09:04→21:10)
[2019-12-15] MEDS: GABAPENTIN 100 MG CAP PO SCH ×3 (09:04→21:09)
[2019-12-15] MEDS: SENNA 8.6 MG TAB PO SCH (09:04)
[2019-12-15] MEDS: DULoxetine HCL 30 MG CAP PO SCH (09:04)
[2019-12-15] MEDS: HEPARIN SOD 5,000 UNIT/0.5 ML VIAL SQ SCH ×2 (09:07→21:15)
[2019-12-15 12:01] LABS: Albumin Level 3.2 gm/dl (3.4-5.0); Bilirubin Direct 0.4 mg/dl (0-0.2); Bilirubin,Total 2.2 mg/dl (0.2-1); Total Protein 7.8 gm/dl (6.4-8.2)
--- NOTE | 2019-12-15 20:14 | Billing Data ---
Date of Service December 15, 2019 Coding Level of Care Code 26166 Subseq Hosp Care Lvl 3
[2019-12-16] MEDS: SODIUM CHLORIDE 0.9% 1000ML 1,000 ML IV SCH ×4 (03:33→19:30)
[2019-12-16] MEDS: busPIRone 5 MG TAB PO SCH ×3 (09:47→21:21)
[2019-12-16] MEDS: GABAPENTIN 100 MG CAP PO SCH ×3 (09:47→21:21)
[2019-12-16] MEDS: DULoxetine HCL 30 MG CAP PO SCH (09:48)
[2019-12-16] MEDS: HEPARIN SOD 5,000 UNIT/0.5 ML VIAL SQ SCH ×2 (09:48→21:26)
[2019-12-16] MEDS: SENNA 8.6 MG TAB PO SCH (09:48)
[2019-12-16] MEDS: FOLIC ACID 1 MG TAB PO SCH (09:48)
[2019-12-16] MEDS: HYDROXYUREA 500 MG CAP PO SCH (09:48)
[2019-12-16] MEDS: oxyCODONE/ACETAMINOPHEN 10-325 TAB PO SCH ×3 (09:55→21:21)
--- NOTE | 2019-12-16 10:05 | Hospitalist Progress Note ---
Date of Service December 16, 2019 Assessment & Plan (1) Sickle cell crisis: 19 yo F with hx Sickle cell disease, Borderline Personality Disorder, multiple suicide attempts admitted for acute sickle cell crisis. Sickle Cell Crisis - Morphine ARMY HELICOPTER PILOT 1 mg Q10min PRN. Review of [employer] HELIC[employer]TER PILOT MAR shows on (night of fever) needing 24 mg of morphine for control. 13 mg overnight, continuing to use this morning. - Narcan for oversomnolence - Q1H vital checks - continue Percocet 10/325 mg TID, Gabapentin 200 mg TID scheduled for pain control - 500 mg Hydroxyurea daily, 2 mg folic acid daily Fever of unknown origin - CRP 6.06 yesterday - Procal <0.05 - temp 38.1 x 1 at 7am 12/13 - continue closely monitoring; no signs of increased O2 requirement/work of breathing, no signs of skin or soft tissue infection, Pseudoseizures - previous workup negative for etiology of seizure-like activity - do not narcan for seizure-like activity - call/page physician operations accountant if concerned that pt is having a seizure and ensure that patient remains safe during seizure Sickle Cell Anemia - Hg 8.8 s/p transfusion 2 u pRBC - Transfusion threshold Hg <7 - hemeonc consulted; recommended hct 25- 30, d/c on folic acid as well as hydroxyurea Borderline PD - buspar 10 mg PO TID - duloxetine 30 mg PO AM - multiple suicide attempts including while on hospital quinones - will need d/c plan with someone else (roommate, sister) managing her pain medication DVT ppx: contraindicated in sickle cell anemia FEN/GI: regular diet, NS @ 125 ml/hr Q24H Code status: Full Code (2) Pseudoseizures: Stable. Noted (3) Anemia: transfused. Hgb improved. follow. (4) Elevated temperature: (5) Borderline personality disorder: Admission and Anticipated Discharge Date Admission Date: December 07, 2019 Supervising Physician Co-Signing Physician Notes I personally examined the patient and verified all amaro points of history and exam, discussed case, and agree with decision making with Dr Bailey pain continues to improve. feels like she's about 65% back to normal. wants to get out by halloween to meet up wtih some friends. vitals noted nad heent nc at mmm breathing unlabored no accessory muscles good effort skin no pallor sickle cell crisis -pain control, fluids, hydroxyurea, time. -continue to follow closelybut now clearly improving -low grade temp 12/13 but temp OK since and still no s/s infection - stonrgly suspect atelectasis -required transfusion - first in a few months, but at least second one this year Subjective Feels like she's finally "on top of" her pain today. Hoping to get out of the hospital prior to the . Says her chest tightness is a little better today, generalized pressure is still there. Review of Systems Constitutional: + body aches; no fever and no chills Respiratory: no cough, no dyspnea and no pain on inspiration Cardiovascular: no chest pain Physical Exam Physical Exam: Constitutional: in no apparent distress, sitting comfortably in bed. Cardiac: RRR, no gallops or rubs. Normal S1, S2 Pulm: CTA BL, no wheezes, rhonchi, crackles or rubs, moving air well throughout both lungs Abd: soft, tender throughout, nondistended, normal bowel sounds, no rebound or guarding Extremities: 2+ peripheral pulses, no edema Neuro: no focal deficits, moving all 4 limbs, A&Ox3 Results & Data Results & Data ([facility]) Vital Signs (Past 12 Hours) Vital Signs Temp Pulse Resp BP Pulse Ox 12/16/19 07:40 37.3 C 57 L 16 157/88 H 94 12/16/19 04:00 36.8 C 63 18 135/71 94 12/15/19 23:07 37.1 C 72 20 110/63 91 Laboratory Results WBC 5.86 K/uL (4.8-10.8) 12/15/19 05:23 RBC 2.59 M/uL (4.2-5.4) L 12/15/19 05:23 Hgb 8.7 g/dL (12.0-16.0) L 12/15/19 05:23 Hct 24.5 % (37-47) L 12/15/19 05:23 MCV 94.6 fL (80-100) 12/15/19 05:23 MCH 33.6 pg (25-34) 12/15/19 05:23 MCHC 35.5 g/dL (32-36) 12/15/19 05:23 RDW Std Deviation 72.6 fL (36.4-46.3) H 12/15/19 05:23 RDW Coeff of [place] 21.5 % (11.5-14.5) H 12/15/19 05:23 Plt Count 352 K/uL (130-400) 12/15/19 05:23 MPV 9.8 fL (7.4-10.4) 12/15/19 05:23 Immature Gran % (Auto) 0.2 % 12/15/19 05:23 Neut % (Auto) 45.4 % 12/15/19 05:23 Lymph % (Auto) 41.1 % 12/15/19 05:23 [place] % (Auto) 8.4 % 12/15/19 05:23 Eos % (Auto) 4.6 % 12/15/19 05:23 Baso % (Auto) 0.3 % 12/15/19 05:23 Reticulocyte % (Auto) 15.8 % (0.5-2.0) H 12/12/19 09:08 Neut # (Auto) 2.66 K/uL (1.4-6.5) 12/15/19 05:23 Lymph # (Auto) 2.41 K/uL (1.2-3.4) 12/15/19 05:23 [place] # (Auto) 0.49 K/uL (0.11-0.59) 12/15/19 05:23 Eos # (Auto) 0.27 K/uL (0-0.5) 12/15/19 05:23 Baso # (Auto) 0.02 K/uL (0-0.2) 12/15/19 05:23 Reticulocyte # 0.30 10^6/uL (0.02-0.10) H 12/12/19 09:08 Immature Gran # (Auto) 0.01 K/uL (0.00-0.02) 12/15/19 05:23 Absolute Nucleated RBC 0.10 K/uL (0-0) H 12/15/19 05:23 Nucleated RBC % (auto) 1.7 % 12/15/19 05:23 Neutrophils % (Manual) Cancelled 12/13/19 06:36 Band Neutrophils % Cancelled 12/13/19 06:36 Lymphocytes % (Manual) Cancelled 12/13/19 06:36 Prolymphocyte % Cancelled 12/13/19 06:36 Reactive Lymphs % (Man) Cancelled 12/13/19 06:36 Monocytes % (Manual) Cancelled 12/13/19 06:36 Eosinophils % (Manual) Cancelled 12/13/19 06:36 Basophils % (Manual) Cancelled 12/13/19 06:36 Metamyelocytes % (Man) Cancelled 12/13/19 06:36 Myelocytes % (Man) Cancelled 12/13/19 06:36 Promyelocytes % (Man) Cancelled 12/13/19 06:36 Blast Cells % (Manual) Cancelled 12/13/19 06:36 Plasma Cell % (Manual) Cancelled 12/13/19 06:36 Other Cells % Cancelled 12/13/19 06:36 Nucleated RBC % Cancelled 12/13/19 06:36 Neutrophils # (Manual) Cancelled 12/13/19 06:36 Band Neutrophils # Cancelled 12/13/19 06:36 Total Absolute Neuts Cancelled 12/13/19 06:36 Lymphocytes # (Manual) Cancelled 12/13/19 06:36 Prolymphocyte # Cancelled 12/13/19 06:36 Reactive Lymphs # Cancelled 12/13/19 06:36 Total Abs Lymphocytes Cancelled 12/13/19 06:36 Monocytes # (Manual) Cancelled 12/13/19 06:36 Eosinophils # (Manual) Cancelled 12/13/19 06:36 Basophils # (Manual) Cancelled 12/13/19 06:36 Metamyelocytes # (Man) Cancelled 12/13/19 06:36 Myelocytes # (Manual) Cancelled 12/13/19 06:36 Promyelocytes # (Man) Cancelled 12/13/19 06:36 Blast Cells # (Man) Cancelled 12/13/19 06:36 Plasma Cell # (Manual) Cancelled 12/13/19 06:36 Other Cells # Cancelled 12/13/19 06:36 Nucleated RBCs # (Man) Cancelled 12/13/19 06:36 Hypersegmented Neuts Cancelled 12/13/19 06:36 Hyposegmented Neuts Cancelled 12/13/19 06:36 Hypogranular Neuts Cancelled 12/13/19 06:36 Large Granular Lymphs Cancelled 12/13/19 06:36 # Lrg Granular Lymphs Cancelled 12/13/19 06:36 Hairy Cells Cancelled 12/13/19 06:36 Smudge Cells Cancelled 12/13/19 06:36 Toxic Granulation Cancelled 12/13/19 06:36 Toxic Vacuolation Cancelled 12/13/19 06:36 Dohle Bodies Cancelled 12/13/19 06:36 Coral Rods Cancelled 12/13/19 06:36 Platelet Estimate Cancelled 12/13/19 06:36 Hypogranular Platelets Cancelled 12/13/19 06:36 Clumped Platelets Cancelled 12/13/19 06:36 Giant Platelets Cancelled 12/13/19 06:36 Platelet Satelliting Cancelled 12/13/19 06:36 RBC Morphology Cancelled 12/13/19 06:36 Polychromasia 1+ 12/15/19 05:23 Hypochromasia Cancelled 12/13/19 06:36 Poikilocytosis Cancelled 12/13/19 06:36 Basophilic Stippling Cancelled 12/13/19 06:36 Anisocytosis Present 12/15/19 05:23 Microcytosis Cancelled 12/13/19 06:36 Macrocytosis Cancelled 12/13/19 06:36 Spherocytes Cancelled 12/13/19 06:36 Pappenheimer Bodies 1+ 12/14/19 08:47 Sickle Cells 1+ 12/15/19 05:23 Target Cells 1+ 12/15/19 05:23 Tear Drop Cells Cancelled 12/13/19 06:36 Ovalocytes Cancelled 12/13/19 06:36 Stomatocytes Cancelled 12/13/19 06:36 [place] Bodies Cancelled 12/13/19 06:36 Echinocytes Cancelled 12/13/19 06:36 Acanthocytes (Spur) Cancelled 12/13/19 06:36 Rouleaux Cancelled 12/13/19 06:36 RBC Agglutinates Cancelled 12/13/19 06:36 Schistocytes Cancelled 12/13/19 06:36 RBC Morph Comment Cancelled 12/13/19 06:36 Sezary Cell Cancelled 12/13/19 06:36 Sodium 138 mmol/L (136-145) 12/14/19 08:47 Potassium 3.5 mmol/L (3.5-5.1) 12/14/19 08:47 Chloride 104 mmol/L (98-107) 12/14/19 08:47 Carbon Dioxide 29 mmol/L (21-32) 12/14/19 08:47 Anion Gap 5.0 (3-11) 12/14/19 08:47 BUN 5 mg/dl (7-18) L 12/14/19 08:47 Creatinine 0.53 mg/dl (0.6-1.2) L 12/14/19 08:47 Est Cr Clr Drug Dosing 163.3 ml/min 12/14/19 08:47 Est GFR ( Amer) > 150.0 12/14/19 08:47 Est GFR (Non-Af Amer) 135.7 12/14/19 08:47 BUN/Creatinine Ratio 8.6 (-20) L 12/14/19 08:47 Glucose 85 mg/dl (70-99) 12/14/19 08:47 POC Glucose 95 mg/dl (70-99) 12/12/19 15:59 Calcium 8.9 mg/dl (8.5-10.1) 12/14/19 08:47 Magnesium 2.0 mg/dl (1.8-2.4) 12/07/19 14:06 Total Bilirubin 2.2 mg/dl (0.2-1) H 12/15/19 11:19 Direct Bilirubin 0.4 mg/dl (0-0.2) H 12/15/19 11:19 AST 32 U/L (15-37) 12/15/19 11:19 ALT 33 U/L (12-78) 12/15/19 11:19 Alkaline Phosphatase 94 U/L (45-117) 12/15/19 11:19 Troponin I < 0.015 ng/ml (0-0.045) 12/07/19 14:06 C-Reactive Protein 6.06 mg/dl (0-0.29) H 12/14/19 08:47 Total Protein 7.8 gm/dl (6.4-8.2) 12/15/19 11:19 Albumin 3.2 gm/dl (3.4-5.0) L 12/15/19 11:19 Globulin 4.2 gm/dl (2.5-4.0) H 12/07/19 14:06 Albumin/Globulin Ratio 0.9 (0.9-2) 12/07/19 14:06 Lipase 119 U/L (73-393) 12/07/19 14:06 Procalcitonin < 0.05 ng/ml (0-0.5) 12/14/19 08:47 TSH 2.620 uIu/ml (0.300-4.500) 12/07/19 14:06 HCG, Qual Negative (Negative) 12/07/19 14:06 Urine Color Yellow 12/07/19 18:30 Urine Appearance Clear (Clear) 12/07/19 18:30 Urine pH 6.0 (4.5-7.5) 12/07/19 18:30 Ur Specific [place] 1.013 (1.000-1.030) 12/07/19 18:30 Urine Protein Negative (Negative) 12/07/19 18:30 Urine Glucose (UA) Negative (Negative) 12/07/19 18:30 Urine Ketones Negative (Negative) 12/07/19 18:30 Urine Blood Trace (Negative) H 12/07/19 18:30 Urine Nitrite Negative (Negative) 12/07/19 18:30 Urine Bilirubin Negative (Negative) 12/07/19 18:30 Urine Urobilinogen Negative (Negative) 12/07/19 18:30 Ur Leukocyte Esterase Negative (Negative) 12/07/19 18:30 Urine WBC (Auto) 1-5 /hpf (0-5) 12/07/19 18:30 Urine RBC (Auto) 5-10 /hpf (0-4) H 12/07/19 18:30 U Hyaline Cast (Auto) 1-5 /lpf (0-5) 12/07/19 18:30 U Epithel Cells (Auto) 10-20 /lpf (0-5) H 12/07/19 18:30 Urine Bacteria (Auto) Negative (Negative) 12/07/19 18:30 Urine Test Negative (Negative) 12/08/19 Unknown Lyme Disease IgG Ab Positive (Negative) A 12/07/19 14:06 Lyme IgG (Western Blot) POSITIVE (NEGATIVE) A 12/07/19 14:06 Lyme IgG 18 kDa Band REACTIVE A 12/07/19 14:06 Lyme IgG 23 kDa Band REACTIVE A 12/07/19 14:06 Lyme IgG 28 kDa Band NON-REACTIVE 12/07/19 14:06 Lyme IgG 30 kDa Band NON-REACTIVE 12/07/19 14:06 Lyme IgG 39 kDa Band REACTIVE A 12/07/19 14:06 Lyme IgG 41 kDa Band REACTIVE A 12/07/19 14:06 Lyme IgG 45 kDa Band NON-REACTIVE 12/07/19 14:06 Lyme IgG 58 kDa Band REACTIVE A 12/07/19 14:06 Lyme IgG 66 kDa Band NON-REACTIVE 12/07/19 14:06 Lyme IgG 93 kDa Band REACTIVE A 12/07/19 14:06 Lyme IgM Ab (WB) NEGATIVE (NEGATIVE) 12/07/19 14:06 Lyme Disease IgM Ab Negative (Negative) 12/07/19 14:06 Lyme IgM 23 kDa Band NON-REACTIVE 12/07/19 14:06 Lyme IgM 39 kDa Band NON-REACTIVE 12/07/19 14:06 Lyme IgM 41 kDa Band NON-REACTIVE 12/07/19 14:06 Blood Type B Positive 12/12/19 09:08 Antibody Screen NEGATIVE 12/12/19 09:08 Crossmatch See Detail 12/12/19 09:08 Resident Activity Tracking Resident Involvement: Resident Care Provided Care Provided: Adult Hospital Medicine (1) Anemia Anemia type: unspecified type Qualified Code(s): D64.9 - Anemia, unspecified
--- NOTE | 2019-12-16 19:26 | Billing Data ---
Date of Service December 16, 2019 Coding Level of Care Code 17541 Subseq Hosp Care Lvl 3
[2019-12-16] MEDS: MoRPHine SULFATE PCA 30 MG/30 ML IV PRN (19:29)
[2019-12-17] MEDS: SODIUM CHLORIDE 0.9% 1000ML 1,000 ML IV SCH ×4 (02:54→18:09)
[2019-12-17] MEDS: HEPARIN SOD 5,000 UNIT/0.5 ML VIAL SQ SCH ×2 (09:48→20:50)
[2019-12-17] MEDS: busPIRone 5 MG TAB PO SCH ×3 (09:49→20:50)
[2019-12-17] MEDS: HYDROXYUREA 500 MG CAP PO SCH (09:50)
[2019-12-17] MEDS: DULoxetine HCL 30 MG CAP PO SCH (09:50)
[2019-12-17] MEDS: FOLIC ACID 1 MG TAB PO SCH (09:50)
[2019-12-17] MEDS: SENNA 8.6 MG TAB PO SCH (09:51)
[2019-12-17] MEDS: GABAPENTIN 100 MG CAP PO SCH ×3 (09:51→20:49)
[2019-12-17] MEDS: oxyCODONE/ACETAMINOPHEN 10-325 TAB PO SCH ×3 (09:56→20:49)
[2019-12-17] MEDS: diphenhydrAMINE Capsule 25 MG CAP PO PRN (20:51)
--- NOTE | 2019-12-17 20:57 | Hospitalist Progress Note ---
Date of Service December 17, 2019 Assessment & Plan (1) Sickle cell crisis: -pain control slowly improving. empathized with pt's desire to feel like a normal college student but also discussed that she's basically been in crisis more or less for a month - given ongoing sx and readmissions - and we would not want to lose the progress she's made by stopping treatment too soon -hydroxyurea (2) Pseudoseizures: Stable. Noted (3) Anemia: transfused. Hgb improved. follow. (4) Elevated temperature: CRP non-bacterial elevation, procal neg, WBC normal and exam reassuring. no focal s/s c/w infection either. none since. 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 still expressing desire to leave tomorrow to meet up w friends for halloween. no other acute complaints for me dr monte rerounded to discuss depression/SI - has very little support system right now does not have active SI but still has risks. Review of Systems Review of Systems: All systems reviewed & are unremarkable except as noted in HPI & below Physical Exam Physical Exam: gen aaox3 pleasant nad heent nc at mmm breathing unlabored no accessory msucles good effort skin no rashes no pallor or icterus neuro no focal deficits Results & Data Results & Data ([facility]) Vital Signs (Past 12 Hours) Vital Signs Temp Pulse Resp BP Pulse Ox 12/17/19 19:55 97.9 F 67 18 128/84 98 12/17/19 15:17 98.4 F 68 18 126/73 93 12/17/19 11:00 98.1 F 82 16 115/67 94 PG Care Time/CCT Total # of Minutes Spent Total Time Spent with Patient: Total time spent is greater than 50% in coordination of care (as documented) at patient's floor/unit and/or counseling patient: Coding Level of Care Code 29887 Subseq Hosp Care Lvl 3 Diagnoses Sickle cell crisis D57.00 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 Anemia D64.9 Anemia type: unspecified type Elevated temperature R50.9 Borderline personality disorder F60.3 (1) Anemia Anemia type: unspecified type Qualified Code(s): D64.9 - Anemia, unspecified
[2019-12-17] MEDS ORDERED: LORazepam 2 MG/4 ML VIAL IV PRN (21:58)
[2019-12-17] MEDS ORDERED: LORazepam 2 MG/4 ML VIAL IV STA (22:00)
[2019-12-18] MEDS: SODIUM CHLORIDE 0.9% 1000ML 1,000 ML IV SCH ×3 (01:51→10:59)
[2019-12-18] MEDS: oxyCODONE/ACETAMINOPHEN 10-325 TAB PO SCH ×2 (09:23→14:05)
[2019-12-18] MEDS: busPIRone 5 MG TAB PO SCH ×2 (09:23→14:02)
[2019-12-18] MEDS: GABAPENTIN 100 MG CAP PO SCH ×2 (09:24→14:02)
[2019-12-18] MEDS: HYDROXYUREA 500 MG CAP PO SCH (09:24)
[2019-12-18] MEDS: SENNA 8.6 MG TAB PO SCH (09:24)
[2019-12-18] MEDS: FOLIC ACID 1 MG TAB PO SCH (09:24)
[2019-12-18] MEDS: HEPARIN SOD 5,000 UNIT/0.5 ML VIAL SQ SCH (09:25)
[2019-12-18] MEDS: DULoxetine HCL 30 MG CAP PO SCH (09:25)
--- NOTE | 2019-12-18 12:39 | Discharge Summary ---
Date of Service December 18, 2019 Admission HPI Per Admitting Provider Donta Early is a 19yo female with history of sickle cell anemia presenting with acute pain crisis. She reports frequent pain crises associated with cold, change in weather, exercise and stress. Pain began approximately 1 week ago as mild body and joint pain. She has been taking Advil as needed. She reports being out of her oxycodone. She states that her pain became acutely worse last night - involving her legs, back and joints as well as her jaw and teeth. She has some chest discomfort as well which is typical of her SS crises as well as some mild nausea. She denies fever/chills/SOB/cough/palpitation/vomiting/diarrhea/constipation. No additional complaints at this time. No concern for Covid-19 exposure. Patient follows with Hematology at [facility]. She reports taking her Folic acid and hydroxyurea daily. ER Course: NSS x 1L, Tylenol x 1gm, Zofran x 4mg, Morphine x4mg, 2mg, 4mg, 2mg,4mg, Ibuprofen 400mg Principal Diagnosis Sickle Cell Crisis Discharge Exam Constitutional WD/WN, vitals as above Eyes PERRL, conjunctivae normal, anicteric sclerae Respiratory normal respiratory effort; no respiratory distress, no labored breathing, no retractions and does not use accessory muscles Cardiovascular Rate/Rhythm: regular rate and regular rhythm Vessels: normal peripheral pulses Extremities: no pedal edema Gastrointestinal (Abdomen) normal bowel sounds, soft, nontender, no hepatosplenomegaly Psychiatric Orientation: alert, oriented x 3 and + guarded Discharge Data Allergies Allergy/AdvReac Type Severity Reaction Status Date / Time No Known Allergies Allergy Verified 12/07/19 13:03 Consultations 12/07/19 19:51 ED Decision to Admit Stat 12/08/19 17:53 Consult Pain Management Routine 12/12/19 15:23 Consult Hematology Routine Hospital Course (1) Sickle cell crisis: 19 yo F with hx Sickle cell disease, Borderline Personality Disorder, multiple suicide attempts admitted for acute sickle cell crisis. Sickle Cell Crisis - through peak of current sickle cell crisis, no longer requiring Morphine LOGGER [employer]IVING HORSES - continue 500 mg Hydroxyurea daily, 2 mg folic acid daily - continue Percocet 10/325 mg TID through Friday - follow-up appointment with Dr. Thompson of [facility] Friday 3:30pm Non-epileptiform activity: - previous workup negative for etiology of seizure-like activity - do not narcan for seizure-like activity - call/page physician grain origination specialist if concerned that pt is having a seizure and ensure that patient remains safe during seizure Sickle Cell Anemia: - Hg 8.8 s/p transfusion 2 u pRBC - Transfusion threshold Hg <7 - heme-onc consulted; recommended hct 25- 30, d/c on folic acid as well as hydroxyurea - followed by [facility] Hematology (Dr. Madrigal) Borderline PD: - buspar 10 mg PO TID - duloxetine 30 mg PO AM - multiple suicide attempts including while on hospital quinones Total Time Total Time Spent Total Time Spent (In Minutes): <30 Discharge Plan Discharge Items Patient Disposition: Home - Self-Care Reason For Visit: SICKLE CELL CRISIS Discharge Diagnosis: Sickle Cell Crisis Activity: Per Instructions section Non-emergency contact: Primary Care Provider and Specialist Call non-emergency contact if: you have any medication questions, your symptoms worsen and your pain is worsening Follow-up/Referrals: [facility] [Primary Care Provider] - Jono Thompson MD [Resident] - 12/21/19 3:30 pm Diet: Regular Addtl Attending Provider Instructions: You were seen and admitted following return of your sickle cell crisis. During this admission, you had management of your crisis pain through IV pain medication, and as your pain improved you were able to be transitioned off the IV medications. Now that you are being discharged we are providing you with a prescription of oral pain medication to help control the sickle cell pains that you have, this should be enough to get you through to your appointment on Friday with Dr. Thompson at the [facility] [address], your appointment is at 3:30pm. Pending Studies at Discharge: No Stand-Alone Forms: My [employer], Smoking Cessation Medications and DC Order Prescriptions: New hydroxyurea 500 mg Capsule 500 mg PO QAM 30 Days Qty: 30 RF: 0 oxycodone-acetaminophen [Percocet] 7.5-325 mg tablet 1 tab PO TID Qty: 10 RF: 0 Continued celecoxib 100 mg capsule 100 mg PO BID RF: 0 duloxetine 20 mg capsule,delayed release(DR/EC) 20 mg PO QAM RF: 0 tramadol 50 mg Tablet 50 mg PO Q12 PRN (Reason: Pain) RF: 0 folic acid 1 mg Tablet 2 mg PO DAILY RF: 0 buspirone 10 mg Tablet 10 mg PO TID RF: 0 Discontinued oxycodone 5 mg tablet 5 mg PO Q8H PRN (Reason: Pain, Severe) RF: 0 Discharge Orders: Discharge Order (Routine); Ordered 12/18/19 Ordered By: Jono Thompson Admission Data Admit Date/Time: 12/07/19 20:08 Attending Provider: Cesar Kerr Admit Provider: Jaymie Castrejon Primary Care Provider: [facility] Other Providers: Jaymie Castrejon ; Richard Marinelli ; Anil Bullock ; Jp Dietrich V. ; Zamzam Bailey ; Desiree Giordano Other Interventions: Discharge Summary Assessment (RN) Last Done: 12/18/19 13:47 Supervising Physician Co-Signing Physician Notes I personally examined the patient and verified all amaro points of history and exam, discussed case, and agree with decision making with Dr Thompson pain continues to improve. actually hasn't needed IV meds since last night. feels like she could do well enough to be home and really wants to go home. vitals noted nad heent nc at mmm breathing unlabored no accessory muscles good effort skin no pallor sickle cell crisis -improving nicely. wants to go home and appears stable enough to do so -outpt pain control delicate balance - for the sickle cell obviously will require pain medication - and almost certainly reasonably potent doses - but at the same time she does have borderline personality with depression and recent suicide attempt (although one does wonder if she wasn't in constant pain from the sickle cell would her depression do better; and if her depression were better would she have better adherence to her hydrea -- very difficult conundrum) -- so ideally for pain control right now she was on oxycodone 10/325 TID scheduled since the LOGGER DRIVING HORSES was stopped -- will dc w 7.5/325 anticipated TID scheduled - but to protect from potential lethal amounts should she have recurrent suicidality - will Rx 10 tabs. she is set to f/u w Dr Thompson in the afternoon of 12/20 - so those 10 tabs would basically last through the end of 12/20, allowing for scheduled pain control and one pill of leeway for getting a new Rx filled. for the short term it might be necessary to do pain control as such - with limited Rx's every 3-4 days so that we have enough pain control that she is not left without necessary medication, but in small enough amounts that should she have recurrence of suicidality we have not prescribed enough to allow for a lethal dose. again it is my hope that with time and control of the pain that her suicidality (to clarify - none active at this current time) will fade. -required transfusion - first in a few months, but at least second one this year Resident Activity Tracking Resident Involvement: Resident Care Provided Care Provided: Adult Hospital Medicine
--- NOTE | 2019-12-18 16:21 | Billing Data ---
Date of Service December 18, 2019 Coding Level of Care Code D/C Day Management <30 mins
== END 2019-12-18 14:55 | disposition home or self-care (01) | DRG 812 ==
LOC: ED 11:40 → SUATTDRO 20:08 → 3N 20:08

== ENCOUNTER 2019-12-20 23:27 | Observation (INO) ==
[2019-12-20] MEDS ORDERED: HYDROmorphone INJ 0.5 MG/0.5 ML SYR IV STA (23:36)
[2019-12-20] MEDS ORDERED: SODIUM CHLORIDE 0.9% 1000ML 1,000 ML IV ONE (23:36)
[2019-12-20] MEDS ORDERED: ONDANSETRON INJ 2 MG/ML 2 ML VIAL IV STA (23:41)
--- NOTE | 2019-12-20 23:41 | Emergency Department Note ---
History of Present Illness General Chief complaint: Chest Pain Stated complaint: GENERALIZED PAIN/CHEST PAIN Time Seen by Provider: 12/20/19 23:28 Source: patient History of Present Illness Provider complaint: Sickle cell crisis Onset (ago): week(s) Location: chest, back, upper extremity and lower extremity Pain Consistency: + constant Maximum Pain Intensity: 7 Quality: + aching (In back and extremities) and + sharp (In chest) Relieved By: + medication (Narcotics) Associated symptoms: + chest pain; no cough, no fever/chills, no nausea/vomiting and no shortness of breath This is a 19-year-old female with history of sickle cell disease presenting with sickle cell crisis. She has been having pain for the past 2 weeks. She was just discharged from the hospital 2 days ago where she was on a morphine TRENCHER DRIVER. She states that they did not want to discharge her but she wanted to go home. She is back today because she has persistent pain she cannot control with the Percocet she is taking at home. She complains of a sharp pain to her chest. She also has aching pains to her hands and legs and back. She denies any fever, cough or cold symptoms, difficulty breathing, abdominal pain, vomiting or diarrhea. Home Medications Home Medications Medication Instructions Recorded Confirmed Type celecoxib 100 mg PO BID 11/18/19 12/20/19 History duloxetine 20 mg PO QAM 11/18/19 12/20/19 History folic acid 2 mg PO DAILY 11/18/19 12/20/19 History tramadol 50 mg PO Q12 PRN 11/18/19 12/20/19 History buspirone 10 mg PO TID 11/23/19 12/20/19 History hydroxyurea 500 mg PO QAM 30 Days #30 cap 12/18/19 12/20/19 Rx oxycodone-acetaminophen [Percocet] 1 tab PO TID #10 tab 12/18/19 12/20/19 Rx clonazepam 0.5 mg PO BID 12/20/19 12/20/19 History Allergies Allergy/AdvReac Type Severity Reaction Status Date / Time No Known Allergies Allergy Verified 12/20/19 23:48 Past Med/Surg History Medical History Borderline personality disorder Pneumonia Seizure-like activity Sickle cell anemia Sickle cell crisis Surgical History No pertinent past surgical history Family History Mother Hypertension Father Ulcer Other Family history non-contributory Social History Smoking Status: Never smoker Second Hand Exposure: No; Hx Alcohol Use: Yes Alcohol type: wine Hx Substance Use: No Preferred Language: Danish Communication Ability: Effective Carton Marker Machine Required: No Beliefs That Will Affect Care: None marital status: Single Current Living Situation: Other Current Living Situation Comment: apartment with roommates 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 current occupation: [employer] major Feels Safe at Home: Yes Assistive Devices: None Review of Systems See HPI for pertinent positives & negatives. and A total of 10 systems reviewed and were otherwise negative Physical Exam Vital Signs Vital Signs - 24 hr 12/20/19 23:29 12/20/19 23:59 12/21/19 00:00 Temperature 36.4 C L Temperature Source Oral Pulse Rate 84 81 Pulse Rate from SpO2 Sensor 80 Pulse Rhythm Regular Pulse Strength Normal Respiratory Rate 18 24 Respiratory Effort / Characteristics Non-Labored Respiratory Depth Normal Blood Pressure 113/70 123/80 Blood Pressure Mean 84 96 Pulse Oximetry 97 100 Oxygen Delivery Method Room Air Room Air Sepsis Recent Fever Within 48 Hours No Sepsis New/Unexplained Change in Mental Status No Sepsis Action Taken by Nursing No Action Required Constitutional: Vital signs reviewed. Eyes: Pupils are equal round reactive to light. Conjunctiva are noninjected. ENT: Pharynx is clear without erythema or exudate. Mucous membranes are moist. Neck supple without meningeal signs. Respiratory: Clear to auscultation bilaterally. Breath sounds are equal bilaterally. Cardiovascular: Regular rate and rhythm. No rubs or gallops. GI: Soft, nondistended and nontender. Bowel sounds are present. Musculoskeletal: No peripheral edema. No lower extremity tenderness. Integumentary: No cyanosis. or jaundice. Neurological: The patient is awake and alert. No focal deficits. Psychiatric: Somewhat anxious. Course Administered Medications Discontinued Medications Hydromorphone HCl (Hydromorphone Inj 0.5 Mg/0.5 Ml Syr) 0.5 mg IV NOW STA Stop: 12/20/19 23:37 Last Admin: 12/21/19 00:38 Dose: 0.5 mg Documented by: [id number] Hydromorphone HCl (Hydromorphone Inj 0.5 Mg/0.5 Ml Syr) 0.5 mg IV NOW STA Stop: 12/21/19 01:09 Last Admin: 12/21/19 01:11 Dose: 0.5 mg Documented by: [id number] Sodium Chloride (Nss 1000ml) 1,000 mls @ 999 mls/hr IV .Q1H1M ONE Stop: 12/21/19 00:36 Last Infusion: 12/21/19 01:06 Dose: 0 mls/hr Documented by: [id number] Admin: 12/20/19 23:53 Dose: 999 mls/hr Documented by: [id number] Ondansetron HCl (Ondansetron Inj 2 Mg/Ml 2 Ml Vial) 4 mg IV NOW STA Stop: 12/20/19 23:42 Last Admin: 12/21/19 00:38 Dose: 4 mg Documented by: [id number] Medical Decision Making Differential Diagnosis Sickle cell crisis, anemia, aplastic anemia, sickle cell chest crisis, intractable pain Medical Records Attestation: I reviewed the patient's medical records. The patient was admitted to the hospital December 06 for sickle cell crisis. She was treated with a morphine TRENCHER DRIVER and discharged 2 days ago. Home Medications Current Medication List: was personally reviewed by me Laboratory Data Attestation: I reviewed the patient's lab results. Result diagrams: 12/20/19 23:38 12/20/19 23:38 Lab Results 12/20/19 12/20/19 12/20/19 Range/Units 23:38 23:38 23:38 WBC 7.51 (4.8-10.8) K/uL RBC 2.87 L (4.2-5.4) M/uL Hgb 9.7 L (12.0-16.0) g/dL Hct 27.4 L (37-47) % MCV 95.5 (80-100) fL MCH 33.8 (25-34) pg MCHC 35.4 (32-36) g/dL RDW Std Deviation 64.9 H (36.4-46.3) fL RDW Coeff of Nando 18.9 H (11.5-14.5) % Plt Count 443 H (130-400) K/uL MPV 9.7 (7.4-10.4) fL Immature Gran % (Auto) 0.3 % Neut % (Auto) 43.2 % Lymph % (Auto) 44.7 % Hendricks % (Auto) 9.1 % Eos % (Auto) 2.3 % Baso % (Auto) 0.4 % Reticulocyte % (Auto) 6.5 H (0.5-2.0) % Neut # (Auto) 3.25 (1.4-6.5) K/uL Lymph # (Auto) 3.36 (1.2-3.4) K/uL Hendricks # (Auto) 0.68 H (0.11-0.59) K/uL Eos # (Auto) 0.17 (0-0.5) K/uL Baso # (Auto) 0.03 (0-0.2) K/uL Reticulocyte # 0.19 H (0.02-0.10) 10^6/uL Immature Gran # (Auto) 0.02 (0.00-0.02) K/uL Absolute Nucleated RBC 0.04 H (0-0) K/uL Nucleated RBC % (auto) 0.5 % PT 12.3 H (9.0-12.0) Seconds INR 1.2 H (0.9-1.1) APTT 23.9 (21.0-31.0) Seconds PTT Ratio 0.9 Sodium 138 (136-145) mmol/L Potassium 3.3 L (3.5-5.1) mmol/L Chloride 106 (98-107) mmol/L Carbon Dioxide 26 (21-32) mmol/L Anion Gap 6.0 (3-11) BUN 10 (7-18) mg/dl Creatinine 0.55 L (0.6-1.2) mg/dl Est Cr Clr Drug Dosing 170.3 ml/min Est GFR ( Amer) > 150.0 Est GFR (Non-Af Amer) 134.1 BUN/Creatinine Ratio 17.4 (10-20) Glucose 102 H (70-99) mg/dl Calcium 8.8 (8.5-10.1) mg/dl Total Bilirubin 2.0 H (0.2-1) mg/dl AST 33 (15-37) U/L ALT 27 (12-78) U/L Alkaline Phosphatase 97 (45-117) U/L Troponin I < 0.015 (0-0.045) ng/ml Total Protein 9.0 H (6.4-8.2) gm/dl Albumin 3.9 (3.4-5.0) gm/dl Globulin 5.1 H (2.5-4.0) gm/dl Albumin/Globulin Ratio 0.8 L (0.9-2) Lipase 305 (73-393) U/L HCG, Qual (Negative) 12/20/19 Range/Units 23:38 WBC (4.8-10.8) K/uL RBC (4.2-5.4) M/uL Hgb (12.0-16.0) g/dL Hct (37-47) % MCV (80-100) fL MCH (25-34) pg MCHC (32-36) g/dL RDW Std Deviation (36.4-46.3) fL RDW Coeff of Nando (11.5-14.5) % Plt Count (130-400) K/uL MPV (7.4-10.4) fL Immature Gran % (Auto) % Neut % (Auto) % Lymph % (Auto) % Hendricks % (Auto) % Eos % (Auto) % Baso % (Auto) % Reticulocyte % (Auto) (0.5-2.0) % Neut # (Auto) (1.4-6.5) K/uL Lymph # (Auto) (1.2-3.4) K/uL Hendricks # (Auto) (0.11-0.59) K/uL Eos # (Auto) (0-0.5) K/uL Baso # (Auto) (0-0.2) K/uL Reticulocyte # (0.02-0.10) 10^6/uL Immature Gran # (Auto) (0.00-0.02) K/uL Absolute Nucleated RBC (0-0) K/uL Nucleated RBC % (auto) % PT (9.0-12.0) Seconds INR (0.9-1.1) APTT (21.0-31.0) Seconds PTT Ratio Sodium (136-145) mmol/L Potassium (3.5-5.1) mmol/L Chloride (98-107) mmol/L Carbon Dioxide (21-32) mmol/L Anion Gap (3-11) BUN (7-18) mg/dl Creatinine (0.6-1.2) mg/dl Est Cr Clr Drug Dosing ml/min Est GFR ( Amer) Est GFR (Non-Af Amer) BUN/Creatinine Ratio (10-20) Glucose (70-99) mg/dl Calcium (8.5-10.1) mg/dl Total Bilirubin (0.2-1) mg/dl AST (15-37) U/L ALT (12-78) U/L Alkaline Phosphatase (45-117) U/L Troponin I (0-0.045) ng/ml Total Protein (6.4-8.2) gm/dl Albumin (3.4-5.0) gm/dl Globulin (2.5-4.0) gm/dl Albumin/Globulin Ratio (0.9-2) Lipase (73-393) U/L HCG, Qual Negative (Negative) Imaging Data Attestation: I personally reviewed and interpreted this imaging study as follows: My Impression: Chest x-ray per my interpretation shows no acute cardiopulmonary process. ECG Data Attestation: I personally reviewed and interpreted this ECG as follows: Indication: + chest pain Rate (beats per minute): 80 Rhythm: + normal sinus ECG Intervals/blocks: + First degree AV block ECG ST segments: + T-wave inversions; no ST elevation ECG Findings: no PVCs Comparison ECG Date: from (December 07, 2019) Change: no significant change MDM Narrative I did evaluate the patient as noted above. IV access was established. I did treat her with IV Dilaudid and Zofran. She was also given normal saline IV. I did place an order for continuous cardiac monitoring. The monitor showed normal sinus rhythm at a rate of 84 bpm. I did order and personally review the patient's 12-lead EKG as described above. She has no acute ischemic changes. She has T wave inversions which were present on her previous EKG from November. I did order and personally reviewed the images of the patient's chest x-ray as described above. There is no evidence of infiltrates. I did order and review the patient's blood work as noted in the electronic medical record. Her hemoglobin is 9.7. Her white count is not elevated. Reticulocyte count is 0.19. She has mild hypokalemia. Troponin is negative. test is negative. I did discuss the test results with the patient. She had continued pain and was given additional Dilaudid 0.5 mg IV. I did discuss the case with the hospitalist and skilled nursing case manager. Impression & Plan Sickle cell crisis, Sickle cell anemia Discharge Plan Visit Data Chief Complaint: Chest Pain Stated Complaint: GENERALIZED PAIN/CHEST PAIN ED Provider: Harpreet Guerra Discharge Problem: Sickle cell crisis, Sickle cell anemia Patient Disposition: Being Evaluated by Hospitalist Forms Stand Alone Forms: My [facility] Prescriptions Prescriptions: No Action celecoxib 100 mg capsule 100 mg PO BID RF: 0 duloxetine 20 mg capsule,delayed release(DR/EC) 20 mg PO QAM RF: 0 tramadol 50 mg Tablet 50 mg PO Q12 PRN (Reason: Pain) RF: 0 folic acid 1 mg Tablet 2 mg PO DAILY RF: 0 buspirone 10 mg Tablet 10 mg PO TID RF: 0 hydroxyurea 500 mg Capsule 500 mg PO QAM 30 Days Qty: 30 RF: 0 oxycodone-acetaminophen [Percocet] 7.5-325 mg tablet 1 tab PO TID Qty: 10 RF: 0 clonazepam 0.5 mg tablet 0.5 mg PO BID RF: 0 Referrals Referrals: [facility] [Primary Care Provider] - Discharge Problem: Sickle cell anemia Qualifiers: Sickle-cell associated disorders: with unspecified crisis Qualified Code(s): D57.00 - Hb-SS disease with crisis, unspecified
[2019-12-21 00:06] LABS: Basophils # (auto) 0.03 K/uL (0-0.2); Basophils % (auto) 0.4 %; Eosinophils # (auto) 0.17 K/uL (0-0.5); Eosinophils % (auto) 2.3 %; Hematocrit (blood only) 27.4 % (37-47); Hemoglobin 9.7 g/dL (12.0-16.0); Immature Granulocytes # (auto) 0.02 K/uL (0.00-0.02); Immature Granulocytes % (auto) 0.3 %; Lymphocytes # (auto) 3.36 K/uL (1.2-3.4); Lymphocytes % (auto) 44.7 %; Mean Corpuscular Hemoglobin 33.8 pg (25-34); Mean Corpuscular Hgb Conc 35.4 g/dL (32-36); Mean Corpuscular Volume 95.5 fL (80-100); Mean Platelet Volume 9.7 fL (7.4-10.4); Monocytes # (auto) 0.68 K/uL (0.11-0.59); Monocytes % (auto) 9.1 %; Neutrophils # (auto) 3.25 K/uL (1.4-6.5); Neutrophils % (auto) 43.2 %; Nucleated RBC # (auto) 0.04 K/uL (0-0); Nucleated RBC % (auto) 0.5 %; Platelet Count 443 K/uL (130-400); RDW Coefficient of Variation 18.9 % (11.5-14.5); RDW Standard Deviation 64.9 fL (36.4-46.3); Red Blood Count 2.87 M/uL (4.2-5.4); Reticulocyte % 6.5 % (0.5-2.0); Reticulocytes # 0.19 10^6/uL (0.02-0.10); White Blood Count 7.51 K/uL (4.8-10.8)
[2019-12-21 00:23] LABS: INR 1.2 (0.9-1.1); Partial Thromboplastin Ratio 0.9; Partial Thromboplastin Time 23.9 Seconds (21.0-31.0); Prothrombin Time 12.3 Seconds (9.0-12.0)
[2019-12-21 00:25] LABS: Alanine Aminotransferase 27 U/L (12-78); Albumin Level 3.9 gm/dl (3.4-5.0); Aspartate Aminotransferase 33 U/L (15-37); BUN Creatinine Ratio 17.4 (10-20); Blood Urea Nitrogen 10 mg/dl (7-18); Calcium 8.8 mg/dl (8.5-10.1); Carbon Dioxide 26 mmol/L (21-32); Chloride 106 mmol/L (98-107); Creatinine Clr Calc Pharmacy 170.3 ml/min; Est GFR (African American) > 150.0; Est GFR (Non-African American) 134.1; Glucose 102 mg/dl (70-99); Lipase 305 U/L (73-393); Potassium 3.3 mmol/L (3.5-5.1); Sodium 138 mmol/L (136-145)
[2019-12-21 00:30] LABS: Albumin Globulin Ratio 0.8 (0.9-2); Alkaline Phosphatase 97 U/L (45-117); Globulin 5.1 gm/dl (2.5-4.0); Troponin I < 0.015 ng/ml (0-0.045)
[2019-12-21 00:34] LABS: Pregnancy Test, Serum Negative (Negative)
[2019-12-21] MEDS ORDERED: HYDROmorphone INJ 0.5 MG/0.5 ML SYR IV STA (01:08)
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
[2019-12-21] MEDS ORDERED: POTASSIUM CHLORIDE 20 MEQ TABCR PO STA ×2 (02:47→08:13)
[2019-12-21] MEDS ORDERED: HYDROmorphone INJ 0.5 MG/0.5 ML SYR IV PRN (02:47)
[2019-12-21] MEDS ORDERED: ACETAMINOPHEN 325 MG TAB PO PRN (02:47)
[2019-12-21] MEDS ORDERED: ONDANSETRON INJ 2 MG/ML 2 ML VIAL IV PRN (02:47)
[2019-12-21] MEDS: SODIUM CHLORIDE 0.45 % 1,000 ML IV SCH ×3 (03:22→19:30)
--- NOTE | 2019-12-21 08:03 | XRay Report ---
XR chest 1V portable HISTORY: Atypical Chest Pain COMPARISON: Chest 12/07/2019. FINDINGS: The cardiac silhouette remains mildly enlarged. The lungs are clear. No pleural effusions. No pneumothorax. IMPRESSION: Stable mild cardiomegaly. ACT 112: Negative or not required by law. Electronically signed by: Cortes Fletcher M.D. 12/21/2019 8:01 AM
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
[2019-12-21] MEDS: oxyCODONE/APAP 7.5/325MG TAB PO SCH ×3 (08:23→21:03)
[2019-12-21] MEDS: DULoxetine HCL 20 MG CAP PO SCH (08:24)
[2019-12-21] MEDS: HYDROXYUREA 500 MG CAP PO SCH (08:24)
[2019-12-21] MEDS: CELECOXIB 100 MG CAP PO SCH ×2 (08:24→21:04)
[2019-12-21] MEDS: FOLIC ACID 1 MG TAB PO SCH (08:24)
[2019-12-21] MEDS: busPIRone 5 MG TAB PO SCH ×3 (08:24→21:04)
[2019-12-21] MEDS ORDERED: clonazePAM 0.5 MG TAB PO SCH (09:00)
--- NOTE | 2019-12-21 12:48 | Electrocardiogram Report ---
Test Reason : Blood Pressure : / mmHG Vent. Rate : 080 BPM Atrial Rate : 080 BPM P-R Int : 224 ms QRS Dur : 082 ms QT Int : 394 ms P-R-T Axes : 064 069 072 degrees QTc Int : 454 ms Sinus rhythm with 1st degree A-V block Abnormal ECG When compared with ECG of 07-DEC-2019 12:51, No significant change was found Confirmed by Slick Simmons ([id number]) on 12/21/2019 12:47:43 PM Referred By: REFERRED SELF Confirmed By:Torey Simmons
[2019-12-21] MEDS: traMADol HCL 50 MG TABLET PO PRN (13:51)
[2019-12-21] MEDS: MoRPHine SULFATE 2 MG/ML CARP IV PRN ×2 (14:51→19:23)
[2019-12-21] MEDS ORDERED: MELATONIN 3 MG TAB PO SCH (21:00)
[2019-12-22] MEDS: MoRPHine SULFATE 2 MG/ML CARP IV PRN ×2 (00:22→10:47)
[2019-12-22 06:51] LABS: Hematocrit (blood only) 26.5 % (37-47); Hemoglobin 9.1 g/dL (12.0-16.0); Mean Corpuscular Hemoglobin 32.7 pg (25-34); Mean Corpuscular Hgb Conc 34.3 g/dL (32-36); Mean Corpuscular Volume 95.3 fL (80-100); Mean Platelet Volume 9.9 fL (7.4-10.4); Nucleated RBC # (auto) 0.12 K/uL (0-0); Platelet Count 452 K/uL (130-400); RDW Coefficient of Variation 18.9 % (11.5-14.5); Red Blood Count 2.78 M/uL (4.2-5.4); White Blood Count 5.72 K/uL (4.8-10.8)
[2019-12-22 07:22] LABS: BUN Creatinine Ratio 7.9 (10-20); Blood Urea Nitrogen 3 mg/dl (7-18); Calcium 8.7 mg/dl (8.5-10.1); Carbon Dioxide 26 mmol/L (21-32); Chloride 108 mmol/L (98-107); Est GFR (African American) > 150.0; Est GFR (Non-African American) 146.5; Glucose 90 mg/dl (70-99); Potassium 3.5 mmol/L (3.5-5.1); Sodium 139 mmol/L (136-145)
[2019-12-22 07:49] LABS: Basophils # (auto) 0.02 K/uL (0-0.2); Basophils % (auto) 0.3 %; Eosinophils # (auto) 0.18 K/uL (0-0.5); Eosinophils % (auto) 3.1 %; Howell-Jolly Bodies Occasional; Lymphocytes % (auto) 57.7 %; Monocytes # (auto) 0.33 K/uL (0.11-0.59); Monocytes % (auto) 5.8 %; Neutrophils # (auto) 1.89 K/uL (1.4-6.5); Neutrophils % (auto) 33.1 %; Sickle Cells 1+; Target Cells 1+
[2019-12-22] MEDS ORDERED: SODIUM CHLORIDE 0.45 % 1,000 ML IV SCH (08:00)
[2019-12-22 08:01] VITALS: TEMP 98.1
[2019-12-22] MEDS: oxyCODONE/APAP 7.5/325MG TAB PO SCH ×2 (08:01→14:04)
[2019-12-22] MEDS: busPIRone 5 MG TAB PO SCH ×2 (08:01→14:03)
[2019-12-22] MEDS: HYDROXYUREA 500 MG CAP PO SCH (08:02)
[2019-12-22] MEDS: FOLIC ACID 1 MG TAB PO SCH ×2 (08:02→08:03)
[2019-12-22] MEDS: DULoxetine HCL 20 MG CAP PO SCH (08:03)
[2019-12-22] MEDS: CELECOXIB 100 MG CAP PO SCH (08:03)
--- NOTE | 2019-12-22 09:35 | Hospitalist Progress Note ---
Date of Service December 22, 2019 Assessment & Plan (1) Sickle cell crisis: 19 yo F with hx Sickle Cell disease, pseudoseizures, depression, suicide attempts, frequent hospitalization for sickle cell crises, who re-presents to ER for sickle cell pain. 1) SIckle cell crisis - due to dehydration over the weekend/lack of eating - rehydration with IVF - Percocet 7.5/325 mg TID for pain control - PRN tramadol and 0.25 mg morphine Q4PRN for exacerbated pain 2) Sickle Cell Anemia - hydroxyurea and folic acid continued - goal hct between 25-30% per heme/onc recommendations last admission - Hg/hct 9.7/27.4 today - transfuse Hct <25, Hg <7 3) Pseudoseizures - known hx. Do not give ativan for any seizure like activity. 4) Borderline PD - buspar 10 TID - duloxetine 20 mg AM DVT ppx: low risk, ambulate during day FEN/GI: regular diet, 1/2NS @125ml/hr Code status: Full Code Dispo: med/surg (2) Pseudoseizures: (3) Borderline personality disorder: Admission and Anticipated Discharge Date Admission Date: December 21, 2019 Results & Data Results & Data ([facility]) Vital Signs (Past 12 Hours) Vital Signs Temp Pulse Resp BP Pulse Ox 12/22/19 08:00 36.7 C 66 16 125/79 95 12/22/19 00:14 36.5 C 68 16 101/72 97
[2019-12-22] MEDS: traMADol HCL 50 MG TABLET PO PRN (09:49)
[2019-12-22] MEDS ORDERED: KETOROLAC TROMETHAMINE 15 MG/ML VIAL IV PRN (10:56)
[2019-12-22] MEDS: ACETAMINOPHEN 325 MG TAB PO SCH ×2 (11:26→14:04)
--- NOTE | 2019-12-22 15:53 | Discharge Summary ---
Date of Service December 22, 2019 Admission HPI Per Admitting Provider Donta Early is a 19yo female with sickle cell anemia, recently admitted for pain crisis and DCd on 12/17 returning with ongoing pain. 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 Her pain improved prior to DC. Worsening pain since discharge. Diffuse body pain initially now in back and chest. No SOB, cough, fever. Patient was discharged with Percocet 7.5/325 TID PRN - states she has taken 4 pills since discharge. She has a followup appointment wt Dr. Thompson this afternoon at 15:30 but states that she does not feel that she can manage her pain at home. ER Course: Dilaudid 0.5mg IV x 2, Zofran 4mg, NSS x 1L Admission Exam Per Admitting Provider General: patient resting comfortably, NAD, non-toxic in appearance, AA&O x 4 Skin: warm, dry, intact, no rashes or lesions HEENT: NC/AT, PERRL, EOMI, anicteric sclera, conjunctiva without injection, external ear normal to inspection and nontender, nares patent, moist mucus membranes, dentition intact, no oropharyngeal lesions, neck supple, trachea midline, no LAD, no thyromegaly, no JVD Heart: +S1/S2 with S2 splitting, regular, no 2/6 GREYSON at LSB, no rubs/gallops Lungs: equal air entry bilaterally, no rales/rhonchi/wheezes Abd: +BS, soft, NT/ND, no masses/organomegaly/ascites Ext: warm, 2+ pulses in UE/LE bilaterally, no clubbing/cyanosis or edema Neuro: nonfocal, patient AA&O x 4, speech intact, no facial droop, moving all extremities on command with equal strength 5/5 Principal Diagnosis sickle cell crisis, borderline personality disorder Discharge Exam Constitutional WD/WN, vitals as above Eyes PERRL, conjunctivae normal, anicteric sclerae Respiratory normal respiratory effort; no respiratory distress, no labored breathing, no retractions and does not use accessory muscles Cardiovascular Rate/Rhythm: regular rate and regular rhythm Vessels: normal peripheral pulses Extremities: no pedal edema Gastrointestinal (Abdomen) normal bowel sounds, soft, nontender, no hepatosplenomegaly Psychiatric Orientation: alert, oriented x 3 and + guarded Discharge Data Allergies Allergy/AdvReac Type Severity Reaction Status Date / Time No Known Allergies Allergy Verified 12/20/19 23:48 Consultations 12/21/19 00:44 ED Decision to Admit Stat Hospital Course (1) Sickle cell crisis: 19 yo F with hx Sickle Cell disease, pseudoseizures, depression, suicide attempts, frequent hospitalization for sickle cell crises, who re-presents to ER for sickle cell pain. 1) SIckle cell crisis - due to dehydration over the weekend/lack of eating - rehydration with IVF - no pain meds sent home 2) Sickle Cell Anemia - hydroxyurea and folic acid continued - discharge hct 9.1/26.5 3) Pseudoseizures 4) Borderline PD: follows with Dr. Morgan. Case management to make appointment for close follow up. - buspar 10 TID - duloxetine 20 mg AM - multiple conversations regarding safety at home and ability to protect herself when she's having "bad" mental health days. Multiple times where she inappropriately laughed and made comments such as "i'm not going to overdose, it doesn't work" and "i don't want to be responsible" indicated lack of investment in her health status and trivial manner toward life. (2) Pseudoseizures: (3) Borderline personality disorder: Total Time Total Time Spent Total Time Spent (In Minutes): see attending attestatoin Discharge Plan Discharge Items Patient Disposition: Home - Self-Care Reason For Visit: SSA, PAIN CRISIS Discharge Diagnosis: sicklecell crisis Activity: Resume your previous activity Non-emergency contact: Primary Care Provider Call non-emergency contact if: you have any medication questions, your pain is worsening and your pain is unusual for you Follow-up/Referrals: [facility] [Primary Care Provider] - Chelsey Valverde MD [Outside Practitioners] - Zamzam Bailey MD [Resident] - Diet: Regular Fluids: 2000ml (8 cups) Addtl Attending Provider Instructions: You were admitted to the hospital for an acute worsening of your sickle cell pain that was managed with rehydration and pain management. A big part of reducing the number of sickle cell episodes you have comes from proper care of your body. This includes making sure you stay hydrated (8 12 oz bottles of water a day), remembering to eat multiple times a day, and taking your Hydroxyurea and Folic acid as recommended. You mentioned you were having trouble sleeping so we tried using a supplement called Melatonin that can be helpful with improving sleep. Take it about an hour before sleeping for maximal benefit. We talked a lot about safety at home and trying to decrease the number of bad mental health days you have. You and I will need to work together with Dr. Morgan to get a better support plan for so that having a bad day doesn't lead to harmful actions like self harm and suicide attempts. All of this starts with learning to recognize triggers and having a built in, ready to go plan for when things seem overwhelming. It's important to know the signs of worsening depression, which can include p ersistent sadness, worsening tiredness, thoughts that you'd be better off , thoughts of doing something that would be painful. Safety plan: 1. Call a friend or family member 2. Call the national suicide crisis hotline: 261.262.1579 OR 2. Text the national crisis line at 943932 to text with a crisis counselor OR 2. Call the [place] [employer] student Help line: OR 2. Call the National Suicide Prevention Lifeline 032-930-[address] Morgan's office 4. Call Dr. Bailey at [phone]. 5. If you can't get through to any of the above, or it isn't helping, call 491 to have an ambulance sent to take you to the ER. At the ER, you can let them know the thoughts you're experiencing and be voluntarily admitted to protect yourself until you get through it. You're not alone. There is always someone to talk to. Someone will call you to schedule your follow up appointment with in the near future. You have a follow up appointment with Dr. Bailey at the [facility] office ([address] [place], [place]) on December 27 at 1:50 PM. Try to be there a few minutes early to fill out paperwork and give plenty of time to get roomed. Pending Studies at Discharge: No Stand-Alone Forms: My Amazon, Smoking Cessation Medications and DC Order Prescriptions: New melatonin 3 mg Tablet 3 mg PO HS 30 Days Qty: 30 RF: 0 Continued celecoxib 100 mg capsule 100 mg PO BID RF: 0 duloxetine 20 mg capsule,delayed release(DR/EC) 20 mg PO QAM RF: 0 tramadol 50 mg Tablet 50 mg PO Q12 PRN (Reason: Pain) RF: 0 folic acid 1 mg Tablet 2 mg PO DAILY RF: 0 buspirone 10 mg Tablet 10 mg PO TID RF: 0 hydroxyurea 500 mg Capsule 500 mg PO QAM 30 Days Qty: 30 RF: 0 oxycodone-acetaminophen [Percocet] 7.5-325 mg tablet 1 tab PO TID Qty: 10 RF: 0 Discontinued clonazepam 0.5 mg tablet 0.5 mg PO BID RF: 0 Discharge Orders: Discharge Order (Routine); Ordered 12/22/19 Ordered By: Zamzam Araogn/Other Patient Handouts: Know the Symptoms of Depression, Sickle Cell Anemia Admission Data Admit Date/Time: 12/21/19 01:52 Attending Provider: Jamie Shaw Admit Provider: Jaymie Castrejon Primary Care Provider: [facility] Other Providers: Jaymie Castrejon ; Zamzam Bailey Other Interventions: Discharge Summary Assessment (RN) Last Done: 12/22/19 17:34 Supervising Physician Co-Signing Physician Notes Attending attestation Pt seen and examined in concert with Dr. Bailey. In agreement with the documented findings as noted in the resident documentation with any exceptions or additions as noted here. Significant improvement in complaints - sitting up in bed, absent of pain and reports feeling well overall. On examination, S1/S2 nl RRR no MCG. CTAB. Abd NT/ND BS+ve Diffuse pain in the setting of sickle cell disease - resolved with IV hydration and pain control with predominantly PO medications, rare use of 0.25mg IV morphine q4PRN. HCT remained within 25 - 30% goal during admission, so no transfusion required Depression/anxiety with h/o suicidality - Extensive conversation today regarding recent history. Follows with psychaitry, Dr. Morgan, for the last 1-2 months who started her on buspirone to which she has been taking 'most of the time' especially when she has been hospitalized with no subjective change in her symptoms. She reports her depression symptoms include: feeling down/sad, spontaneous crying episodes, significant anhedonia which all interfere with school work, appetite and intermittently, adherence to medication. She reports that she has a history of self-harm behaviors which she says includes hitting herself in the head and jumping down stairs ("but not enough to really hurt my self"). I asked about her supports and safety - she has 'her best friend' who she can call any time she is having a rough day or feeling like she is going to self-harm, but she states that she doesn't want to lean on her friend too often for fear of being a burden. She denies any other supports. She has no continuity medical provider, though is willing to follow up with Dr. Bailey. She is dissatisfied with previous interactions with the crisis line, but understands that they are there for emergencies and agrees to call them or 911 if needed. She asked questions of me such as "why do you think that self-harm is bad?" and inquired regarding my motivations repeatedly, which I tried to explain to the best of my ability are to help and support her. She denies any SI/HI and states that she will reach out through any and all channels if she is feeling like harming herself or others. She is agreeable to having case management connect her with her psychiatrists office for a follow up to discuss the impact of her medication. 40 minutes was spent on this discharge, including evaluation, counseling and coordination of care. Else see resident documentation as noted. Resident Activity Tracking Resident Involvement: Resident Care Provided Care Provided: Adult Hospital Medicine
[2019-12-22 16:08] VITALS: BP 118/78; PULSE 63; O2SAT 98
== END 2019-12-22 18:00 | disposition home or self-care (01) ==
LOC: ED 23:27 → 3W 23:27 → SUATTDRO 12-21 01:52 → 3W 12-21 02:31

== ENCOUNTER 2020-01-22 22:37 | Inpatient (IN) ==
[2020-01-22] MEDS ORDERED: ONDANSETRON INJ 2 MG/ML 2 ML VIAL IV STA (22:58)
[2020-01-22] MEDS ORDERED: SODIUM CHLORIDE 0.9% 1000ML 1,000 ML IV SCH (23:00)
[2020-01-22 23:51] LABS: Basophils # (auto) 0.05 K/uL (0-0.2); Basophils % (auto) 0.7 %; Eosinophils # (auto) 0.16 K/uL (0-0.5); Eosinophils % (auto) 2.3 %; Hematocrit (blood only) 27.7 % (37-47); Hemoglobin 9.8 g/dL (12.0-16.0); Immature Granulocytes # (auto) 0.02 K/uL (0.00-0.02); Immature Granulocytes % (auto) 0.3 %; Lymphocytes # (auto) 3.19 K/uL (1.2-3.4); Lymphocytes % (auto) 45.8 %; Mean Corpuscular Hgb Conc 35.4 g/dL (32-36); Mean Corpuscular Volume 101.8 fL (80-100); Monocytes # (auto) 0.47 K/uL (0.11-0.59); Monocytes % (auto) 6.8 %; Neutrophils # (auto) 3.07 K/uL (1.4-6.5); Neutrophils % (auto) 44.1 %; Nucleated RBC # (auto) 0.07 K/uL (0-0); Platelet Count 344 K/uL (130-400); RDW Coefficient of Variation 21.7 % (11.5-14.5); RDW Standard Deviation 80.1 fL (36.4-46.3); Red Blood Count 2.72 M/uL (4.2-5.4); Reticulocyte % 11.2 % (0.5-2.0); White Blood Count 6.96 K/uL (4.8-10.8)
[2020-01-22] MEDS: HYDROmorphone INJ 0.5 MG/0.5 ML SYR IV PRN (23:51)
[2020-01-23 00:01] LABS: INR 1.1 (0.9-1.1); Partial Thromboplastin Ratio 0.8; Partial Thromboplastin Time 22.8 Seconds (21.0-31.0); Prothrombin Time 11.6 Seconds (9.0-12.0)
[2020-01-23 00:10] LABS: Alanine Aminotransferase 19 U/L (12-78); Albumin Level 4.1 gm/dl (3.4-5.0); Aspartate Aminotransferase 32 U/L (15-37); Blood Urea Nitrogen 7 mg/dl (7-18); Carbon Dioxide 26 mmol/L (21-32); Chloride 105 mmol/L (98-107); Creatinine Clr Calc Pharmacy 130.2 ml/min; Est GFR (African American) 147.8; Est GFR (Non-African American) 127.6; Glucose 82 mg/dl (70-99); Lipase 204 U/L (73-393); Potassium 3.8 mmol/L (3.5-5.1); Sodium 138 mmol/L (136-145)
[2020-01-23 00:15] LABS: Albumin Globulin Ratio 0.9 (0.9-2); Alkaline Phosphatase 107 U/L (45-117); Bilirubin,Total 2.2 mg/dl (0.2-1); Globulin 4.5 gm/dl (2.5-4.0); Total Protein 8.6 gm/dl (6.4-8.2); Troponin I < 0.015 ng/ml (0-0.045)
[2020-01-23 00:17] LABS: Howell-Jolly Bodies Occasional; Pappenheimer Bodies 1+; Polychromasia 1+; Sickle Cells 1+; Target Cells 1+
[2020-01-23] MEDS: HYDROmorphone INJ 0.5 MG/0.5 ML SYR IV PRN (01:13)
[2020-01-23 01:32] LABS: Appearance Urine Clear (Clear); Bacteria Urine Automated Negative (Negative); Bilirubin Urine Negative (Negative); Blood Urine Negative (Negative); Cast Urine Automated 0 /lpf (0-5); Color Urine Yellow; Glucose Urine UA Negative (Negative); Ketones Urine Negative (Negative); Leukocyte Esterase Urine Trace (Negative); Nitrite Urine Negative (Negative); Protein Urine Negative (Negative); RBC Urine Automated 0-4 /hpf (0-4); Specific Gravity Urine 1.006 (1.000-1.030); Urobilinogen Urine Negative (Negative); pH Urine 6.5 (4.5-7.5)
[2020-01-23] MEDS ORDERED: MoRPHine SULFATE 2 MG/ML CARP IV PRN (01:37)
[2020-01-23] MEDS ORDERED: ONDANSETRON INJ 2 MG/ML 2 ML VIAL IV PRN (01:37)
[2020-01-23] MEDS ORDERED: ACETAMINOPHEN 325 MG TAB PO PRN (01:37)
--- NOTE | 2020-01-23 01:38 | History & Physical Report ---
Date of Service January 23, 2020 Assessment & Plan (1) Vaso-occlusive sickle cell crisis: Patient is a 19-year-old female with a past medical history of sickle cell anemia, pseudoseizures, BPD, who was recently admitted and discharged on 12/21 for sickle cell crisis she presents today in self-reported sickle cell crisis endorsing 10 out of 10 pain. #Generalized weakness, myalgias, chest pain secondary to vaso-occlusive sickle cell crisis in the setting of a patient with sickle cell anemia, borderline personality disorder, and pseudoseizures. Patient presenting with a bout of sickle cell crisis. She reports sickle cell crisis per started approximately 3 days ago and has been progressively worsening. This evening the pain became so significant that she felt the need to present to the emergency department. Upon admission labs were done demonstrating the patient is not an ACS, vital signs are stable, patient is endorsing significant pain. Patient reports that Dilaudid does not help her pain well, and that she prefers morphine. CBC was within normal limits, no need for transfusion at present, -Admit to medical -As needed O2 -Lactated Ringer's at 100 -Pain control with IV morphine 2 mg for pain 1 through 5, 4 mg for pain 6 through 10 -Continue tramadol 50 mg p.o. twice daily as needed -Continue hydroxyurea and folic acid -EKG with chest pain #Borderline personality disorder with nonepileptic episodes Per chart patient has a history of borderline personality disorder, has had episodes of nonepileptic seizures. Patient should not receive Ativan for the seizures. Continue home psych meds. -Continue buspirone 50 mg p.o. 3 times daily -Continue duloxetine 30 mg p.o. daily #Depression As above FENa: LR at 100 Code Status: Full DVT PPX: SCDs, low DVT risk, ambulation PT/OT: Not indicated Dispo: MedSurg then home pending clinical improvement Tom Castrejon MD PGY 2, FCM This chart was completed utilizing [employer] voice recognition software. Grammatical errors, random word insertions, pronoun errors, and in complete sentences are an occasional consequence of the system. Any questions or concerns about the content, text, or information contained within the body of this dictation should be addressed directly to the physician for clarification. (2) Pseudoseizures: (3) Generalized weakness: (4) Anemia: (5) Myalgia: (6) Chest pain: (7) Borderline personality disorder: (8) Sickle cell anemia: History of Present Illness Patient is a 19-year-old female with a past medical history of sickle cell anemia, pseudoseizures, BPD, who was recently admitted and discharged on 12/21 for sickle cell crisis she presents today in self-reported sickle cell crisis endorsing 10 out of 10 pain. Patient reports has been having a sickle cell crisis for the past few days, the pain is been slowly increasing in nature, she reports the majority of her pain is in her chest, right down the center of her chest, she also has some abdominal pain, she also is noting that her left leg is becoming increasingly weak. She states that her typical symptoms when she has these attacks. She denies any shortness of breath, difficulty breathing, significant chest pain on the left side of her chest, pain is rating down her arms, pain radiating to her back, or other concerning signs or symptoms that ACS is present, reviewed EKG which was within normal limits, she saturating trading well on room air, blood pressure is good. Patient reports has been in normal state of health, attributes current sickle cell crisis to changes in temperature, she denies any constitutional symptoms including fever, chills, nausea, vomiting, diarrhea, generalized malaise, or other concerning signs or symptoms. Patient reports tolerating her diet, voiding normally, stooling normally, and sleeping well. Patient states in the past Dilaudid does not work well for pain she prefers morphine. Primary team was called for admission. Patient will be admitted for further evaluation management. Primary Care Provider: [facility] Allergies Allergy/AdvReac Type Severity Reaction Status Date / Time No Known Allergies Allergy Verified 01/22/20 23:45 Home Medications Medication Instructions Recorded Confirmed Type folic acid 2 mg PO DAILY 11/18/19 01/22/20 History tramadol 50 mg PO Q12 PRN 11/18/19 01/22/20 History buspirone 15 mg PO TID 01/22/20 01/22/20 History duloxetine 30 mg PO DAILY 01/22/20 01/22/20 History hydroxyurea 500 mg PO TID 01/22/20 01/22/20 History oxycodone-acetaminophen 1 tab PO DAILY PRN 01/22/20 01/22/20 History pantoprazole 40 mg PO DAILY 01/22/20 01/22/20 History Past Med/Surg History Medical History Borderline personality disorder Pneumonia Seizure-like activity Sickle cell anemia Sickle cell crisis Surgical History No pertinent past surgical history Family History Mother Hypertension Father Ulcer Other Family history non-contributory Social History Smoking Status: Never smoker Second Hand Exposure: No; Hx Alcohol Use: Yes Alcohol type: wine Hx Substance Use: No Preferred Language: Cambodian Communication Ability: Effective Neurodiagnostic Technician Required: No Beliefs That Will Affect Care: None marital status: Single Current Living Situation: Other Current Living Situation Comment: apartment with room mates 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 current occupation: [employer] major Feels Safe at Home: Yes Assistive Devices: Glasses Review of Systems Review of Systems: All systems reviewed & are unremarkable except as noted in HPI & below Physical Exam Physical Exam: General: In no acute distress HEENT: Normocephalic atraumatic Neck: Normal to visual inspection, trachea midline Cardiac: Regular rate and rhythm I did not appreciate any significant murmurs rubs or gallops, normal S1, normal S2, negative calf pain, negative pedal edema Respiratory: Clear to auscultation bilaterally without significant wheezes rales or rhonchi, symmetrical chest expansion bilaterally GI: Soft, tender to palpation all 4 quadrants, normal bowel sounds MSK: Moves all extremities, some pain in left lower extremity Skin: Cool dry and intact Neuro: Alert and oriented x4 Psych: Calm and participating in the interview Results & Data Results & Data ([facility]) Vital Signs (Past 12 Hours) Vital Signs Temp Pulse Resp BP Pulse Ox 01/22/20 22:40 37.2 C 100 H 17 112/67 96 Laboratory Results 01/23/20 01/23/20 01/23/20 Range/Units 01:15 01:15 01:15 WBC (4.8-10.8) K/uL RBC (4.2-5.4) M/uL Hgb (12.0-16.0) g/dL Hct (37-47) % MCV (80-100) fL MCH (25-34) pg MCHC (32-36) g/dL RDW Std Deviation (36.4-46.3) fL RDW Coeff of Nando (11.5-14.5) % Plt Count (130-400) K/uL MPV (7.4-10.4) fL Immature Gran % (Auto) % Neut % (Auto) % Lymph % (Auto) % [place] % (Auto) % Eos % (Auto) % Baso % (Auto) % Reticulocyte % (Auto) (0.5-2.0) % Neut # (Auto) (1.4-6.5) K/uL Lymph # (Auto) (1.2-3.4) K/uL Robeson # (Auto) (0.11-0.59) K/uL Eos # (Auto) (0-0.5) K/uL Baso # (Auto) (0-0.2) K/uL Reticulocyte # (0.02-0.10) 10^6/uL Immature Gran # (Auto) (0.00-0.02) K/uL Absolute Nucleated RBC (0-0) K/uL Nucleated RBC % (auto) % Polychromasia Pappenheimer Bodies Sickle Cells Target Cells [place] Bodies PT (9.0-12.0) Seconds INR (0.9-1.1) APTT (21.0-31.0) Seconds PTT Ratio Sodium (136-145) mmol/L Potassium (3.5-5.1) mmol/L Chloride (98-107) mmol/L Carbon Dioxide (21-32) mmol/L Anion Gap (3-11) BUN (7-18) mg/dl Creatinine (0.6-1.2) mg/dl Est Cr Clr Drug Dosing ml/min Est GFR ( Amer) Est GFR (Non-Af Amer) BUN/Creatinine Ratio (10-20) Glucose (70-99) mg/dl Calcium (8.5-10.1) mg/dl Magnesium (1.8-2.4) mg/dl Total Bilirubin (0.2-1) mg/dl AST (15-37) U/L ALT (12-78) U/L Alkaline Phosphatase (45-117) U/L Troponin I (0-0.045) ng/ml Total Protein (6.4-8.2) gm/dl Albumin (3.4-5.0) gm/dl Globulin (2.5-4.0) gm/dl Albumin/Globulin Ratio (0.9-2) Lipase (73-393) U/L Urine Color Pending Urine Appearance Pending Urine pH Pending Ur Specific [place] Pending Urine Protein Pending Urine Glucose (UA) Pending Urine Ketones Pending Urine Blood Pending Urine Nitrite Pending Urine Bilirubin Pending Urine Urobilinogen Pending Ur Leukocyte Esterase Pending POC Ur Test NEG (NEG) Urine Opiates Screen Pending Ur Methadone, Qual Pending Urine Barbiturates Pending Ur Phencyclidine (PCP) Pending U Amphetamin/Meth Scrn Pending MDMA (Ecstasy) Screen Pending U Benzodiazepines Scrn Pending Ur Cocaine Metabolite Pending U Marijuana (THC) Screen Pending 01/22/20 01/22/20 01/22/20 Range/Units 23:35 23:35 23:35 WBC 6.96 (4.8-10.8) K/uL RBC 2.72 L (4.2-5.4) M/uL Hgb 9.8 L (12.0-16.0) g/dL Hct 27.7 L (37-47) % MCV 101.8 H (80-100) fL MCH 36.0 H (25-34) pg MCHC 35.4 (32-36) g/dL RDW Std Deviation 80.1 H (36.4-46.3) fL RDW Coeff of Nando 21.7 H (11.5-14.5) % Plt Count 344 (130-400) K/uL MPV 9.0 (7.4-10.4) fL Immature Gran % (Auto) 0.3 % Neut % (Auto) 44.1 % Lymph % (Auto) 45.8 % Robeson % (Auto) 6.8 % Eos % (Auto) 2.3 % Baso % (Auto) 0.7 % Reticulocyte % (Auto) 11.2 H (0.5-2.0) % Neut # (Auto) 3.07 (1.4-6.5) K/uL Lymph # (Auto) 3.19 (1.2-3.4) K/uL [place] # (Auto) 0.47 (0.11-0.59) K/uL Eos # (Auto) 0.16 (0-0.5) K/uL Baso # (Auto) 0.05 (0-0.2) K/uL Reticulocyte # 0.30 H (0.02-0.10) 10^6/uL Immature Gran # (Auto) 0.02 (0.00-0.02) K/uL Absolute Nucleated RBC 0.07 H (0-0) K/uL Nucleated RBC % (auto) 1.0 % Polychromasia 1+ Pappenheimer Bodies 1+ Sickle Cells 1+ Target Cells 1+ [place] Bodies Occasional PT 11.6 (9.0-12.0) Seconds INR 1.1 (0.9-1.1) APTT 22.8 (21.0-31.0) Seconds PTT Ratio 0.8 Sodium 138 (136-145) mmol/L Potassium 3.8 (3.5-5.1) mmol/L Chloride 105 (98-107) mmol/L Carbon Dioxide 26 (21-32) mmol/L Anion Gap 7.0 (3-11) BUN 7 (7-18) mg/dl Creatinine 0.64 (0.6-1.2) mg/dl Est Cr Clr Drug Dosing 130.2 ml/min Est GFR ( Amer) 147.8 Est GFR (Non-Af Amer) 127.6 BUN/Creatinine Ratio 11.0 (10-20) Glucose 82 (70-99) mg/dl Calcium 9.0 (8.5-10.1) mg/dl Magnesium 2.0 (1.8-2.4) mg/dl Total Bilirubin 2.2 H (0.2-1) mg/dl AST 32 (15-37) U/L ALT 19 (12-78) U/L Alkaline Phosphatase 107 (45-117) U/L Troponin I < 0.015 (0-0.045) ng/ml Total Protein 8.6 H (6.4-8.2) gm/dl Albumin 4.1 (3.4-5.0) gm/dl Globulin 4.5 H (2.5-4.0) gm/dl Albumin/Globulin Ratio 0.9 (0.9-2) Lipase 204 (73-393) U/L Urine Color Urine Appearance Urine pH Ur Specific [place] Urine Protein Urine Glucose (UA) Urine Ketones Urine Blood Urine Nitrite Urine Bilirubin Urine Urobilinogen Ur Leukocyte Esterase POC Ur Test (NEG) Urine Opiates Screen Ur Methadone, Qual Urine Barbiturates Ur Phencyclidine (PCP) U Amphetamin/Meth Scrn MDMA (Ecstasy) Screen U Benzodiazepines Scrn Ur Cocaine Metabolite U Marijuana (THC) Screen Medications Administered Current Inpatient Medications Hydromorphone HCl (Hydromorphone Inj 0.5 Mg/0.5 Ml Syr) 0.5 mg IV Q1H PRN PRN Reason: Pain Stop: 02/05/20 22:59 Last Admin: 01/23/20 01:13 Dose: 0.5 mg Documented by: Code Status & VTE Plan Code Status Full VTE Prophylaxis Plan VTE Prophylaxis will be ordered: Yes (1) Anemia Anemia type: unspecified type Qualified Code(s): D64.9 - Anemia, unspecified (2) Sickle cell anemia Sickle-cell associated disorders: with unspecified crisis Qualified Code(s): D57.00 - Hb-SS disease with crisis, unspecified
--- NOTE | 2020-01-23 01:44 | Emergency Department Note ---
History of Present Illness General Chief complaint: Nausea Stated complaint: NAUSEA - BODY PAINS Time Seen by Provider: 01/22/20 22:50 History of Present Illness Maximum Pain Intensity: 7 This is a 19-year-old female presenting to the emergency department for evaluation of full body aches and pains, primarily in her left leg over the past 2 to 3 days. The patient states her pain is diffuse and rated a 7/10. She has an established history of sickle cell disease and sickle cell crisis. The patient is functionally asplenic. She does not have any recent infectious exposures or symptoms. She does take hydroxyurea and folic acid. The patient has tramadol and Percocet at home that she has been taking the past few days without any improvement of her pain. She does feel this is similar to previous sickle cell exacerbations. Home Medications Medication Instructions Recorded Confirmed Type folic acid 2 mg PO DAILY 11/18/19 01/22/20 History tramadol 50 mg PO Q12 PRN 11/18/19 01/22/20 History buspirone 15 mg PO TID 01/22/20 01/22/20 History duloxetine 30 mg PO DAILY 01/22/20 01/22/20 History hydroxyurea 500 mg PO TID 01/22/20 01/22/20 History oxycodone-acetaminophen 1 tab PO DAILY PRN 01/22/20 01/22/20 History pantoprazole 40 mg PO DAILY 01/22/20 01/22/20 History Allergies Allergy/AdvReac Type Severity Reaction Status Date / Time No Known Allergies Allergy Verified 01/22/20 23:45 Past Med/Surg History Medical History Borderline personality disorder Pneumonia Seizure-like activity Sickle cell anemia Sickle cell crisis Surgical History No pertinent past surgical history Family History Mother Hypertension Father Ulcer Other Family history non-contributory Social History Smoking Status: Never smoker Second Hand Exposure: No; Do You Dip or Chew Tobacco: No; Hx Alcohol Use: Yes Alcohol type: wine Hx Substance Use: No Preferred Language: [place] Communication Ability: Effective Rail Setter Required: No Beliefs That Will Affect Care: None marital status: Single Current Living Situation: Other Current Living Situation Comment: Apartment with Roomates 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 current occupation: [employer] major Other Information That Helps Us Care for You: No Feels Safe at Home: Yes Safety Concerns: Feels Safe At This Time Assistive Devices: None Review of Systems A total of 10 systems reviewed and were otherwise negative Physical Exam Vital Signs Vital Signs - 24 hr 01/22/20 22:40 01/23/20 01:34 Temperature 37.2 C Temperature Source Oral Pulse Rate 100 H Pulse Rate [Right] 70 Pulse Rhythm [Right] Regular Pulse Strength [Right] Normal Respiratory Rate 17 17 Respiratory Effort / Characteristics Non-Labored Non-Labored Spontaneous Respiratory Depth Normal Normal Respiratory Pattern Regular Blood Pressure 112/67 Blood Pressure [Right Arm] 98/67 L Blood Pressure Mean 82 Blood Pressure Mean [Right Arm] 77 Blood Pressure Position [Right Arm] Lying Pulse Oximetry 96 97 Oxygen Delivery Method Room Air Room Air Sepsis Recent Fever Within 48 Hours No Sepsis New/Unexplained Change in Mental Status No Sepsis Action Taken by Nursing No Action Required VITALS: Vitals are noted on the nurse's note and reviewed by myself. Vital signs stable. GENERAL: Well-developed, well-nourished, black female, who is in no acute distress and resting comfortably. Patient is cooperative with the examination. HEAD: Normocephalic atraumatic. HEART: Regular rate and rhythm without murmurs gallops or rubs. LUNGS: Clear to auscultation bilaterally without wheezes, rales or rhonchi. No retractions or accessory muscle use. ABDOMEN: Positive normal bowel sounds x 4. Soft, nontender, without masses or organomegaly. No guarding or rebound tenderness. MUSCULOSKELETAL: No muscle atrophy, erythema, or edema noted. Full range of motion in all extremities. No tenderness to palpation. NEURO: Patient was alert and oriented to person place and time. CN II through XII grossly intact. PSYCH: Flat affect noted SKIN: The skin was without rashes, erythema, edema, or bruising. Capillary refill less than 2 seconds. Course Administered Medications Lactated Ringer's (Lr) 1,000 mls @ 100 mls/hr IV .Q10H WALTER Stop: 02/22/20 01:44 Last Admin: 01/23/20 02:58 Dose: 100 mls/hr Documented by: [id number] Morphine Sulfate (Morphine Sulfate 2 Mg/Ml Carp) 2 mg IV Q3H PRN PRN Reason: Pain (1,2,3,4,5) & Pre PT Stop: 02/06/20 01:36 Last Admin: 01/23/20 02:58 Dose: 2 mg Documented by: [id number] Discontinued Medications Hydromorphone HCl (Hydromorphone Inj 0.5 Mg/0.5 Ml Syr) 0.5 mg IV Q1H PRN PRN Reason: Pain Stop: 02/05/20 22:59 Last Admin: 01/23/20 01:13 Dose: 0.5 mg Documented by: [id number] Admin: 01/22/20 23:51 Dose: 0.5 mg Documented by: [id number] Sodium Chloride (Nss 1000ml) 1,000 mls @ 999 mls/hr IV .Q1H1M WALTER Stop: 01/23/20 00:00 Last Infusion: 01/23/20 00:55 Dose: 0 mls/hr Documented by: [id number] Admin: 01/22/20 23:52 Dose: 999 mls/hr Documented by: [id number] Ondansetron HCl (Ondansetron Inj 2 Mg/Ml 2 Ml Vial) 4 mg IV NOW STA Stop: 01/22/20 22:59 Last Admin: 01/22/20 23:51 Dose: 4 mg Documented by: [id number] Medical Decision Making Differential Diagnosis Differential diagnosis includes, but is not limited to: Sickle cell crisis, chronic pain, myocardial infarction, dysrhythmia, pericarditis, pneumothorax, aortic aneurysm/dissection, DVT/PE, anxiety, GERD, PUD, electrolyte imbalance, thyroid disorder, pneumonia, bronchitis, pancreatitis, and others Laboratory Data Result diagrams: 01/22/20 23:35 01/22/20 23:35 Lab Results 01/22/20 01/22/20 01/22/20 Range/Units 23:35 23:35 23:35 WBC 6.96 (4.8-10.8) K/uL RBC 2.72 L (4.2-5.4) M/uL Hgb 9.8 L (12.0-16.0) g/dL Hct 27.7 L (37-47) % MCV 101.8 H (80-100) fL MCH 36.0 H (25-34) pg MCHC 35.4 (32-36) g/dL RDW Std Deviation 80.1 H (36.4-46.3) fL RDW Coeff of Nando 21.7 H (11.5-14.5) % Plt Count 344 (130-400) K/uL MPV 9.0 (7.4-10.4) fL Immature Gran % (Auto) 0.3 % Neut % (Auto) 44.1 % Lymph % (Auto) 45.8 % Cassia % (Auto) 6.8 % Eos % (Auto) 2.3 % Baso % (Auto) 0.7 % Reticulocyte % (Auto) 11.2 H (0.5-2.0) % Neut # (Auto) 3.07 (1.4-6.5) K/uL Lymph # (Auto) 3.19 (1.2-3.4) K/uL Cassia # (Auto) 0.47 (0.11-0.59) K/uL Eos # (Auto) 0.16 (0-0.5) K/uL Baso # (Auto) 0.05 (0-0.2) K/uL Reticulocyte # 0.30 H (0.02-0.10) 10^6/uL Immature Gran # (Auto) 0.02 (0.00-0.02) K/uL Absolute Nucleated RBC 0.07 H (0-0) K/uL Nucleated RBC % (auto) 1.0 % Polychromasia 1+ Pappenheimer Bodies 1+ Sickle Cells 1+ Target Cells 1+ [place] Bodies Occasional PT 11.6 (9.0-12.0) Seconds INR 1.1 (0.9-1.1) APTT 22.8 (21.0-31.0) Seconds PTT Ratio 0.8 Sodium 138 (136-145) mmol/L Potassium 3.8 (3.5-5.1) mmol/L Chloride 105 (98-107) mmol/L Carbon Dioxide 26 (21-32) mmol/L Anion Gap 7.0 (3-11) BUN 7 (7-18) mg/dl Creatinine 0.64 (0.6-1.2) mg/dl Est Cr Clr Drug Dosing 130.2 ml/min Est GFR ( Amer) 147.8 Est GFR (Non-Af Amer) 127.6 BUN/Creatinine Ratio 11.0 (10-20) Glucose 82 (70-99) mg/dl Calcium 9.0 (8.5-10.1) mg/dl Magnesium 2.0 (1.8-2.4) mg/dl Total Bilirubin 2.2 H (0.2-1) mg/dl AST 32 (15-37) U/L ALT 19 (12-78) U/L Alkaline Phosphatase 107 (45-117) U/L Troponin I < 0.015 (0-0.045) ng/ml Total Protein 8.6 H (6.4-8.2) gm/dl Albumin 4.1 (3.4-5.0) gm/dl Globulin 4.5 H (2.5-4.0) gm/dl Albumin/Globulin Ratio 0.9 (0.9-2) Lipase 204 (73-393) U/L Urine Color Urine Appearance (Clear) Urine pH (4.5-7.5) Ur Specific [place] (1.000-1.030) Urine Protein (Negative) Urine Glucose (UA) (Negative) Urine Ketones (Negative) Urine Blood (Negative) Urine Nitrite (Negative) Urine Bilirubin (Negative) Urine Urobilinogen (Negative) Ur Leukocyte Esterase (Negative) Urine WBC (Auto) (0-5) /hpf Urine RBC (Auto) (0-4) /hpf U Hyaline Cast (Auto) (0-5) /lpf U Epithel Cells (Auto) (0-5) /lpf Urine Bacteria (Auto) (Negative) POC Ur Test (NEG) Urine Opiates Screen (Neg) Ur Methadone, Qual (Neg) Urine Barbiturates (Neg) Ur Phencyclidine (PCP) (Neg) U Amphetamin/Meth Scrn (Neg) MDMA (Ecstasy) Screen (Neg) U Benzodiazepines Scrn (Neg) Ur Cocaine Metabolite (Neg) U Marijuana (THC) Screen (Neg) SARS-CoV-2 Ag (Rapid) (Negative) 01/23/20 01/23/20 01/23/20 Range/Units 01:15 01:15 01:15 WBC (4.8-10.8) K/uL RBC (4.2-5.4) M/uL Hgb (12.0-16.0) g/dL Hct (37-47) % MCV (80-100) fL MCH (25-34) pg MCHC (32-36) g/dL RDW Std Deviation (36.4-46.3) fL RDW Coeff of Nando (11.5-14.5) % Plt Count (130-400) K/uL MPV (7.4-10.4) fL Immature Gran % (Auto) % Neut % (Auto) % Lymph % (Auto) % Cassia % (Auto) % Eos % (Auto) % Baso % (Auto) % Reticulocyte % (Auto) (0.5-2.0) % Neut # (Auto) (1.4-6.5) K/uL Lymph # (Auto) (1.2-3.4) K/uL Cassia # (Auto) (0.11-0.59) K/uL Eos # (Auto) (0-0.5) K/uL Baso # (Auto) (0-0.2) K/uL Reticulocyte # (0.02-0.10) 10^6/uL Immature Gran # (Auto) (0.00-0.02) K/uL Absolute Nucleated RBC (0-0) K/uL Nucleated RBC % (auto) % Polychromasia Pappenheimer Bodies Sickle Cells Target Cells [place] Bodies PT (9.0-12.0) Seconds INR (0.9-1.1) APTT (21.0-31.0) Seconds PTT Ratio Sodium (136-145) mmol/L Potassium (3.5-5.1) mmol/L Chloride (98-107) mmol/L Carbon Dioxide (21-32) mmol/L Anion Gap (3-11) BUN (7-18) mg/dl Creatinine (0.6-1.2) mg/dl Est Cr Clr Drug Dosing ml/min Est GFR ( Amer) Est GFR (Non-Af Amer) BUN/Creatinine Ratio (10-20) Glucose (70-99) mg/dl Calcium (8.5-10.1) mg/dl Magnesium (1.8-2.4) mg/dl Total Bilirubin (0.2-1) mg/dl AST (15-37) U/L ALT (12-78) U/L Alkaline Phosphatase (45-117) U/L Troponin I (0-0.045) ng/ml Total Protein (6.4-8.2) gm/dl Albumin (3.4-5.0) gm/dl Globulin (2.5-4.0) gm/dl Albumin/Globulin Ratio (0.9-2) Lipase (73-393) U/L Urine Color Yellow Urine Appearance Clear (Clear) Urine pH 6.5 (4.5-7.5) Ur Specific [place] 1.006 (1.000-1.030) Urine Protein Negative (Negative) Urine Glucose (UA) Negative (Negative) Urine Ketones Negative (Negative) Urine Blood Negative (Negative) Urine Nitrite Negative (Negative) Urine Bilirubin Negative (Negative) Urine Urobilinogen Negative (Negative) Ur Leukocyte Esterase Trace H (Negative) Urine WBC (Auto) 1-5 (0-5) /hpf Urine RBC (Auto) 0-4 (0-4) /hpf U Hyaline Cast (Auto) 0 (0-5) /lpf U Epithel Cells (Auto) 10-20 H (0-5) /lpf Urine Bacteria (Auto) Negative (Negative) POC Ur Test NEG (NEG) Urine Opiates Screen Neg (Neg) Ur Methadone, Qual Neg (Neg) Urine Barbiturates Neg (Neg) Ur Phencyclidine (PCP) Neg (Neg) U Amphetamin/Meth Scrn Neg (Neg) MDMA (Ecstasy) Screen Neg (Neg) U Benzodiazepines Scrn Neg (Neg) Ur Cocaine Metabolite Neg (Neg) U Marijuana (THC) Screen Neg (Neg) SARS-CoV-2 Ag (Rapid) (Negative) 01/23/20 Range/Units 01:34 WBC (4.8-10.8) K/uL RBC (4.2-5.4) M/uL Hgb (12.0-16.0) g/dL Hct (37-47) % MCV (80-100) fL MCH (25-34) pg MCHC (32-36) g/dL RDW Std Deviation (36.4-46.3) fL RDW Coeff of Nando (11.5-14.5) % Plt Count (130-400) K/uL MPV (7.4-10.4) fL Immature Gran % (Auto) % Neut % (Auto) % Lymph % (Auto) % Cassia % (Auto) % Eos % (Auto) % Baso % (Auto) % Reticulocyte % (Auto) (0.5-2.0) % Neut # (Auto) (1.4-6.5) K/uL Lymph # (Auto) (1.2-3.4) K/uL Cassia # (Auto) (0.11-0.59) K/uL Eos # (Auto) (0-0.5) K/uL Baso # (Auto) (0-0.2) K/uL Reticulocyte # (0.02-0.10) 10^6/uL Immature Gran # (Auto) (0.00-0.02) K/uL Absolute Nucleated RBC (0-0) K/uL Nucleated RBC % (auto) % Polychromasia Pappenheimer Bodies Sickle Cells Target Cells [place] Bodies PT (9.0-12.0) Seconds INR (0.9-1.1) APTT (21.0-31.0) Seconds PTT Ratio Sodium (136-145) mmol/L Potassium (3.5-5.1) mmol/L Chloride (98-107) mmol/L Carbon Dioxide (21-32) mmol/L Anion Gap (3-11) BUN (7-18) mg/dl Creatinine (0.6-1.2) mg/dl Est Cr Clr Drug Dosing ml/min Est GFR ( Amer) Est GFR (Non-Af Amer) BUN/Creatinine Ratio (10-20) Glucose (70-99) mg/dl Calcium (8.5-10.1) mg/dl Magnesium (1.8-2.4) mg/dl Total Bilirubin (0.2-1) mg/dl AST (15-37) U/L ALT (12-78) U/L Alkaline Phosphatase (45-117) U/L Troponin I (0-0.045) ng/ml Total Protein (6.4-8.2) gm/dl Albumin (3.4-5.0) gm/dl Globulin (2.5-4.0) gm/dl Albumin/Globulin Ratio (0.9-2) Lipase (73-393) U/L Urine Color Urine Appearance (Clear) Urine pH (4.5-7.5) Ur Specific [place] (1.000-1.030) Urine Protein (Negative) Urine Glucose (UA) (Negative) Urine Ketones (Negative) Urine Blood (Negative) Urine Nitrite (Negative) Urine Bilirubin (Negative) Urine Urobilinogen (Negative) Ur Leukocyte Esterase (Negative) Urine WBC (Auto) (0-5) /hpf Urine RBC (Auto) (0-4) /hpf U Hyaline Cast (Auto) (0-5) /lpf U Epithel Cells (Auto) (0-5) /lpf Urine Bacteria (Auto) (Negative) POC Ur Test (NEG) Urine Opiates Screen (Neg) Ur Methadone, Qual (Neg) Urine Barbiturates (Neg) Ur Phencyclidine (PCP) (Neg) U Amphetamin/Meth Scrn (Neg) MDMA (Ecstasy) Screen (Neg) U Benzodiazepines Scrn (Neg) Ur Cocaine Metabolite (Neg) U Marijuana (THC) Screen (Neg) SARS-CoV-2 Ag (Rapid) Negative (Negative) ECG Data Attestation: I personally reviewed and interpreted this ECG as follows: Indication: + other (Sickle cell disease pain) Additional Comments: Normal sinus rhythm @[address] elevation Possible Left atrial enlargement Borderline ECG When compared with ECG of 21-DEC-2019 00:04, [place] interval has decreased MDM Narrative Physical exam and history were performed. Nursing notes, EMR, and Medication List were personally reviewed. Patient appears to have reports of full body pain in the context of having history of sickle cell disease. On examination the patient does not appear toxic but is rating her pain at a very high level. IV access was established and labs were obtained. The patient was hydrated with normal saline. She was given IV fluids, IV Dilaudid, and IV Zofran. An order was placed for continuous cardiac monitoring. The monitor shows a rate of 75 with normal sinus rhythm. The patient blood work is as above and was reviewed. She does not have a significantly elevated white blood cell count. Hemoglobin is 9.8, however this is fairly common for her. Reticulocyte count is 11.2%. INR is 1.1. She does not have significant electrolyte imbalance. Transaminases are not diagnostic. Troponin x1 is negative. Urine is without gross evidence of infection. She is not . Drug abuse screen is negative. The patient was reevaluated multiple times at the course of her stay. She certainly may be in sickle cell crisis, but does not have acute coronary syndrome. I did discuss options of care with the patient, and she continues to have pain and does not feel well for discharge home. The case was discussed with the on-call hospitalist team who agreed to evaluate the patient. Please see their dictation for further patient course, plan, and disposition. The chart was completed utilizing [employer] Voice Recognition Software. Grammatical errors, random word insertions, pronoun errors, and incomplete sen tences are an occasional consequence of this system due to software limitations, ambient noise, and hardware issues. Any formal questions or concerns about the content, text, or information contained within the body of this dictation should be directly addressed to the provider for clarification. . Impression & Plan Sickle cell crisis, Sickle cell anemia, Generalized pain, Nausea Discharge Plan Visit Data Chief Complaint: Nausea Stated Complaint: NAUSEA - BODY PAINS ED Provider: Mello Hyatt ED Midlevel Provider: Jp Toth Discharge Problem: Sickle cell crisis, Sickle cell anemia, Generalized pain, Nausea Patient Disposition: Admitted As Inpatient Discharge Instructions Interventions: ED Discharge Assessment Last Done: 01/23/20 02:39
[2020-01-23 01:48] LABS: Amphetamines+Metham, Urine Neg (Neg); Barbiturates, Urine Neg (Neg); Benzodiazepine, Urine Neg (Neg); Cocaine, Urine Neg (Neg); MDMA (Ecstacy), Urine Neg (Neg); Methadone, Urine Neg (Neg); Opiate, Urine Neg (Neg); Phencyclidine, Urine Neg (Neg)
[2020-01-23] MEDS: LACTATED RINGER'S 1,000 ML IV SCH ×3 (02:58→23:11)
[2020-01-23 06:15] LABS: Basophils # (auto) 0.06 K/uL (0-0.2); Basophils % (auto) 0.7 %; Eosinophils # (auto) 0.19 K/uL (0-0.5); Eosinophils % (auto) 2.3 %; Hematocrit (blood only) 25.9 % (37-47); Hemoglobin 9.1 g/dL (12.0-16.0); Immature Granulocytes # (auto) 0.02 K/uL (0.00-0.02); Immature Granulocytes % (auto) 0.2 %; Lymphocytes # (auto) 3.61 K/uL (1.2-3.4); Lymphocytes % (auto) 44.1 %; Mean Corpuscular Hemoglobin 36.1 pg (25-34); Mean Corpuscular Hgb Conc 35.1 g/dL (32-36); Mean Corpuscular Volume 102.8 fL (80-100); Mean Platelet Volume 9.2 fL (7.4-10.4); Monocytes # (auto) 0.54 K/uL (0.11-0.59); Monocytes % (auto) 6.6 %; Neutrophils # (auto) 3.77 K/uL (1.4-6.5); Neutrophils % (auto) 46.1 %; Nucleated RBC # (auto) 0.05 K/uL (0-0); Nucleated RBC % (auto) 0.6 %; Platelet Count 358 K/uL (130-400); RDW Coefficient of Variation 20.9 % (11.5-14.5); RDW Standard Deviation 77.7 fL (36.4-46.3); Red Blood Count 2.52 M/uL (4.2-5.4); White Blood Count 8.19 K/uL (4.8-10.8)
[2020-01-23 06:44] LABS: Anisocytosis Present; Howell-Jolly Bodies Occasional; Ovalocytes 1+; Pappenheimer Bodies 1+; Polychromasia 1+
[2020-01-23 06:46] LABS: Alanine Aminotransferase 16 U/L (12-78); Albumin Level 3.8 gm/dl (3.4-5.0); Aspartate Aminotransferase 25 U/L (15-37); BUN Creatinine Ratio 12.6 (10-20); Blood Urea Nitrogen 7 mg/dl (7-18); Calcium 8.6 mg/dl (8.5-10.1); Carbon Dioxide 25 mmol/L (21-32); Chloride 106 mmol/L (98-107); Creatinine Clr Calc Pharmacy 141.2 ml/min; Est GFR (African American) > 150.0; Glucose 89 mg/dl (70-99); Potassium 3.9 mmol/L (3.5-5.1); Sodium 137 mmol/L (136-145)
[2020-01-23 06:49] LABS: Alkaline Phosphatase 95 U/L (45-117); Total Protein 7.8 gm/dl (6.4-8.2)
[2020-01-23] MEDS: MoRPHine SULFATE 4 MG/ML 1 ML CARP\\VIAL IV PRN ×5 (07:26→20:51)
[2020-01-23] MEDS: HYDROXYUREA 500 MG CAP PO SCH ×3 (08:13→20:44)
[2020-01-23] MEDS: POLYETHYLENE (MIRALAX) 17 GM PACK PO SCH ×2 (08:13→20:45)
[2020-01-23] MEDS: PANTOprazole 40 MG TAB PO SCH (08:14)
[2020-01-23] MEDS: FOLIC ACID 1 MG TAB PO SCH (08:14)
[2020-01-23] MEDS: busPIRone 15 MG TAB PO SCH ×3 (08:14→20:44)
[2020-01-23] MEDS: DULoxetine HCL 30 MG CAP PO SCH (08:14)
--- NOTE | 2020-01-23 11:41 | Electrocardiogram Report ---
Test Reason : Blood Pressure : / mmHG Vent. Rate : 091 BPM Atrial Rate : 091 BPM P-R Int : 168 ms QRS Dur : 078 ms QT Int : 356 ms P-R-T Axes : 065 070 049 degrees QTc Int : 437 ms Poor data quality, interpretation may be adversely affected Normal sinus rhythm Possible Left atrial enlargement Borderline ECG When compared with ECG of 21-DEC-2019 00:04, [place] interval has decreased Confirmed by Mello Pedersen ([id number]) on 01/23/2020 11:40:56 AM Referred By: REFERRED SELF Confirmed By:Mello Pedersen
[2020-01-23] MEDS: oxyCODONE/ACETAMINOPHEN 5mg/325mg TAB PO PRN (13:17)
--- NOTE | 2020-01-23 15:01 | Hospitalist Progress Note ---
Date of Service January 23, 2020 Assessment & Plan (1) Vaso-occlusive sickle cell crisis: James is a 19-year-old female with a past medical history of sickle cell anemia, pseudoseizures, BPD, who was recently admitted and discharged on 12/21 for sickle cell crisis, admitted on 01/23/2020 for self-reported sickle cell crisis endorsing 10 out of 10 pain. Generalized pain - suspect 2/2 to vaso-occlusive sickle cell crisis in the setting of sickle cell anemia - hemodynamically stable on room air, H/H 9.9/25.9 and stable, ACS w/u negative - patient reports that Dilaudid does not help her pain - prefers morphine - continue PRN Tramadol/Morphine for pain management - continue IVFs with LR 100cc/hr - Continue home hydroxyurea and folic acid - EKG with chest pain - trend CBC daily - per Heme/Onc recs in 11/2019: transfuse for Hct < 25% Borderline personality disorder - with h/o psychogenic non-epileptic seizures - Patient should not receive Ativan for seizures - Continue home buspirone 50 mg PO TID and Cymbalta 30 mg PO daily Depression - As above FEN/GI: regular diet, LR 100cc/hr DVT PPX: SCDs, ambulation Code Status: Full code Dispo: Med/surg (2) Pseudoseizures: (3) Generalized weakness: (4) Anemia: (5) Myalgia: (6) Chest pain: (7) Borderline personality disorder: (8) Sickle cell anemia: Admission and Anticipated Discharge Date Admission Date: January 23, 2020 Supervising Physician Co-Signing Physician Notes Attending attestation Pt seen and examined in concert with Dr. Whaley. In agreement with the documented findings as noted in the resident documentation with any exceptions or additions as noted here. 19 y/o female h/o SCD, depression w/ h/o self-harm behaviors presents with pain crisis. James is resting comfortably in bed. Complains that pain persists, diffusely, centralized in midchest which is typical for her presentation. Ameliorated by current medication regimen. On examination, S1/S2 nl RRR no MCG. CTAB. Abd NT/ND BS+ve. Trace edema of the b/l LE Pain crisis in the setting of SCD - continue IV hydration and current pain management regimen with morphine. Transfuse w/ HCT < 25 BPD w/ dperession, h/o non-epileptic psychogenic sz - no lorazepam for seizures (none as yet this admit). Continue buspirone and duloxetine. Else see resident documentation as noted. Subjective No acute events overnight after transfer to floor. Patient reports that she had several days of generalized pain as well as chest pain that worsened to 10/10 in severity on day of admission. Additionally, she reports difficulty with ambulation, which is also usually present during her sickle cell crises. Pain is currently controlled with PRN Morphine - patient reports that generalized pain and chest pain is significantly improved from yesterday. Patient tolerated breakfast well without N/V. Denies fever/chills, SOB, cough, N/V, diarrhea. Review of Systems Review of Systems: Pertinent positives and negatives mentioned in HPI Physical Exam Constitutional: WD/WN, vitals as above no acute distress appears calm/relaxed Respiratory: normal respiratory effort, lungs clear to auscultation Cardiovascular: RRR, no murmur, no edema Gastrointestinal (Abdomen): normal bowel sounds, soft, nontender, no hepatosplenomegaly Skin: no rashes, warm and dry Psychiatric: A+Ox3, euthymic affect Results & Data Results & Data ([facility]) Vital Signs (Past 12 Hours) Vital Signs Temp Pulse Resp BP Pulse Ox 01/23/20 14:29 36.4 C L 86 18 98/59 L 95 01/23/20 03:00 36.7 C 88 16 120/77 97 Resident Activity Tracking Resident Involvement: Resident Care Provided Care Provided: Adult Hospital Medicine (1) Anemia Anemia type: unspecified type Qualified Code(s): D64.9 - Anemia, unspecified
[2020-01-23] MEDS: traMADol HCL 50 MG TABLET PO PRN (16:27)
[2020-01-24] MEDS: MoRPHine SULFATE 4 MG/ML 1 ML CARP\\VIAL IV PRN ×5 (00:36→23:35)
--- NOTE | 2020-01-24 06:17 | Billing Data ---
Date of Service January 24, 2020 Coding Level of Care Code 68295 Initial Inpt Care Lvl 2
[2020-01-24 06:32] LABS: Basophils # (auto) 0.03 K/uL (0-0.2); Basophils % (auto) 0.5 %; Eosinophils # (auto) 0.16 K/uL (0-0.5); Eosinophils % (auto) 2.8 %; Hematocrit (blood only) 24.4 % (37-47); Hemoglobin 8.7 g/dL (12.0-16.0); Immature Granulocytes # (auto) 0.01 K/uL (0.00-0.02); Immature Granulocytes % (auto) 0.2 %; Lymphocytes # (auto) 2.68 K/uL (1.2-3.4); Lymphocytes % (auto) 47.3 %; Mean Corpuscular Hemoglobin 36.4 pg (25-34); Mean Corpuscular Hgb Conc 35.7 g/dL (32-36); Mean Corpuscular Volume 102.1 fL (80-100); Mean Platelet Volume 8.8 fL (7.4-10.4); Monocytes # (auto) 0.31 K/uL (0.11-0.59); Monocytes % (auto) 5.5 %; Neutrophils # (auto) 2.47 K/uL (1.4-6.5); Neutrophils % (auto) 43.7 %; Nucleated RBC # (auto) 0.06 K/uL (0-0); Platelet Count 339 K/uL (130-400); RDW Coefficient of Variation 21.1 % (11.5-14.5); RDW Standard Deviation 77.3 fL (36.4-46.3); Red Blood Count 2.39 M/uL (4.2-5.4); White Blood Count 5.66 K/uL (4.8-10.8)
[2020-01-24 07:05] LABS: Anisocytosis Present; Howell-Jolly Bodies 1+; Pappenheimer Bodies 2+; Poikilocytosis Present; Sickle Cells 1+; Target Cells 2+
[2020-01-24 07:13] LABS: Alanine Aminotransferase 16 U/L (12-78); Albumin Globulin Ratio 0.9 (0.9-2); Albumin Level 3.5 gm/dl (3.4-5.0); Alkaline Phosphatase 83 U/L (45-117); Aspartate Aminotransferase 24 U/L (15-37); BUN Creatinine Ratio 17.3 (10-20); Bilirubin,Total 2.1 mg/dl (0.2-1); Blood Urea Nitrogen 8 mg/dl (7-18); Calcium 8.5 mg/dl (8.5-10.1); Carbon Dioxide 28 mmol/L (21-32); Chloride 107 mmol/L (98-107); Creatinine Clr Calc Pharmacy 173.6 ml/min; Est GFR (African American) > 150.0; Est GFR (Non-African American) 140.2; Globulin 3.9 gm/dl (2.5-4.0); Glucose 88 mg/dl (70-99); Potassium 3.7 mmol/L (3.5-5.1); Sodium 138 mmol/L (136-145); Total Protein 7.4 gm/dl (6.4-8.2)
[2020-01-24] MEDS: LACTATED RINGER'S 1,000 ML IV SCH ×2 (08:38→18:38)
[2020-01-24] MEDS: FOLIC ACID 1 MG TAB PO SCH (08:38)
[2020-01-24] MEDS: PANTOprazole 40 MG TAB PO SCH (08:38)
[2020-01-24] MEDS: HYDROXYUREA 500 MG CAP PO SCH ×3 (08:38→20:48)
[2020-01-24] MEDS: DULoxetine HCL 30 MG CAP PO SCH (08:38)
[2020-01-24] MEDS: busPIRone 15 MG TAB PO SCH ×3 (08:39→20:49)
[2020-01-24] MEDS: POLYETHYLENE (MIRALAX) 17 GM PACK PO SCH ×2 (08:39→20:50)
[2020-01-24] MEDS: oxyCODONE/ACETAMINOPHEN 5mg/325mg TAB PO PRN (11:32)
[2020-01-24] MEDS: traMADol HCL 50 MG TABLET PO PRN (12:22)
--- NOTE | 2020-01-24 16:32 | Hospitalist Progress Note ---
Date of Service January 24, 2020 Assessment & Plan (1) Vaso-occlusive sickle cell crisis: James is a 19-year-old female with a past medical history of sickle cell anemia, pseudoseizures, BPD, who was recently admitted and discharged on 12/21 for sickle cell crisis, admitted on 01/23/2020 for self-reported sickle cell crisis endorsing 10 out of 10 pain. Generalized pain - suspect 2/2 to vaso-occlusive sickle cell crisis in the setting of sickle cell anemia - hemodynamically stable on room air, H/H 9.9/25.9 and stable, ACS w/u negative - patient reports that Dilaudid does not help her pain - prefers morphine - continue PRN Tramadol/Morphine for pain management - As of 01/23, will change pain regimen to Percocet 10mg/325mg q6h prn and morphine 4mg q3h prn - continue IVFs with LR 100cc/hr - Continue home hydroxyurea and folic acid - EKG prn for chest pain - trend CBC daily -- per Heme/Onc recs in 11/2019: transfuse for Hct < 25% Borderline personality disorder - with h/o psychogenic non-epileptic seizures - Patient should not receive Ativan for seizures - Continue home buspirone 50 mg PO TID and Cymbalta 30 mg PO daily Depression - As above FEN/GI: regular diet, LR 100cc/hr DVT PPX: SCDs, ambulation Code Status: Full code Dispo: Med/surg (2) Pseudoseizures: (3) Generalized weakness: (4) Anemia: (5) Myalgia: (6) Chest pain: (7) Borderline personality disorder: (8) Sickle cell anemia: Admission and Anticipated Discharge Date Admission Date: January 23, 2020 Supervising Physician Co-Signing Physician Notes I personally examined the patient and verified all amaro points of history and exam, discussed case, and agree with decision making with Dr De Leon. pain still fairly bad. also lightheaded. some nausea this afternoon but at least was able to eat lunch. has been taking hydrea reliably for about the last month vitals noted nad fatigued appearing heent nc at mmm breathing unlabored no accessory muscles good effort sickle cell vaso-occlusive crisis - ongoing pain control, increase fluids (discussed transfusion w Hgb and lightheaded but she would (understandably) prefer to hold off), will try to reach out to dr joe (hematology at [facility]) re ?additional steps for baseline sickle cell management add DVT proph Subjective Patient was seen and evaluated at bedside this morning. She reports no acute events overnight. Patient does complain of persistent pain, most prominently in the upper chest wall/shoulders bilaterally. She rates the pain at a 7/10. The pain improves to a 5/10 with pain medication. Patient also complains of a slight headache and nausea, both of which are waxing and waning in nature. Patient denies vomiting and states that she has been able to tolerate some PO intake but she "just isn't very hungry." Review of Systems Constitutional: + body aches; no fever and no chills Respiratory: no cough and no dyspnea Cardiovascular: no chest pain Gastrointestinal: + nausea; no abdominal pain and no vomiting Musculoskeletal: + joint pain Neurologic: + headache(s) Physical Exam Physical Exam: GENERAL: No acute distress. Well developed and well nourished. Vital signs reviewed. EYES: EOMI. Anicteric sclera. HENT: Moist mucous membranes. RESPIRATORY: Clear to auscultation bilaterally. No wheezing, rales, or rhonchi. CARDIOVASCULAR: Regular rate and rhythm. No murmurs. ABDOMEN: Soft and non-tender. Normal bowel sounds. NEURO: A/O x4. No focal deficits. PSYCHIATRIC: Cooperative. Appropriate mood and affect. Results & Data Results & Data ([facility]) Vital Signs (Past 12 Hours) Vital Signs Temp Pulse Resp BP Pulse Ox 01/24/20 07:40 37.1 C 81 18 94/55 L 95 Resident Activity Tracking Resident Involvement: Resident Care Provided Care Provided: Adult Hospital Medicine (1) Anemia Anemia type: unspecified type Qualified Code(s): D64.9 - Anemia, unspecified
--- NOTE | 2020-01-24 17:47 | Billing Data ---
Date of Service January 24, 2020 Coding Level of Care Code 28089 Subseq Hosp Care Lvl 3
[2020-01-24] MEDS: oxyCODONE/ACETAMINOPHEN 10-325 TAB PO PRN (22:15)
[2020-01-25] MEDS: LACTATED RINGER'S 1,000 ML IV SCH ×4 (03:47→15:21)
[2020-01-25] MEDS: traMADol HCL 50 MG TABLET PO PRN (03:47)
[2020-01-25 05:56] LABS: Hematocrit (blood only) 24.7 % (37-47); Hemoglobin 8.7 g/dL (12.0-16.0); Mean Corpuscular Hemoglobin 35.5 pg (25-34); Mean Corpuscular Hgb Conc 35.2 g/dL (32-36); Mean Corpuscular Volume 100.8 fL (80-100); Mean Platelet Volume 8.7 fL (7.4-10.4); Platelet Count 382 K/uL (130-400); RDW Coefficient of Variation 21.1 % (11.5-14.5); RDW Standard Deviation 76.6 fL (36.4-46.3); Red Blood Count 2.45 M/uL (4.2-5.4); White Blood Count 6.25 K/uL (4.8-10.8)
[2020-01-25 06:45] LABS: Basophils # (auto) 0.03 K/uL (0-0.2); Basophils % (auto) 0.5 %; Eosinophils # (auto) 0.15 K/uL (0-0.5); Eosinophils % (auto) 2.4 %; Immature Granulocytes # (auto) 0.01 K/uL (0.00-0.02); Immature Granulocytes % (auto) 0.2 %; Lymphocytes % (auto) 52.8 %; Monocytes % (auto) 4.8 %; Neutrophils # (auto) 2.46 K/uL (1.4-6.5); Neutrophils % (auto) 39.3 %; Polychromasia 1+; Sickle Cells 1+
[2020-01-25] MEDS: MoRPHine SULFATE 4 MG/ML 1 ML CARP\\VIAL IV PRN ×4 (07:09→19:16)
[2020-01-25] MEDS: POLYETHYLENE (MIRALAX) 17 GM PACK PO SCH ×2 (08:38→20:37)
[2020-01-25] MEDS: oxyCODONE/ACETAMINOPHEN 10-325 TAB PO PRN (08:41)
[2020-01-25] MEDS: PANTOprazole 40 MG TAB PO SCH (08:41)
[2020-01-25] MEDS: busPIRone 15 MG TAB PO SCH ×3 (08:42→20:37)
[2020-01-25] MEDS: DULoxetine HCL 30 MG CAP PO SCH (08:42)
[2020-01-25] MEDS: FOLIC ACID 1 MG TAB PO SCH (08:42)
[2020-01-25] MEDS: HYDROXYUREA 500 MG CAP PO SCH ×3 (08:42→20:38)
[2020-01-25] MEDS: ENOXAPARIN INJ 40 MG/0.4 ML SYR SQ SCH (08:55)
--- NOTE | 2020-01-25 14:09 | Hospitalist Progress Note ---
Date of Service January 25, 2020 Assessment & Plan (1) Vaso-occlusive sickle cell crisis: James is a 19-year-old female with a past medical history of sickle cell anemia, pseudoseizures, BPD, who was recently admitted and discharged on 12/21 for sickle cell crisis, admitted on 01/23/2020 for self-reported sickle cell crisis endorsing 10 out of 10 pain. Vaso-occlusive Sickle Cell Crisis w/ generalized pain - hemodynamically stable on room air, H/H 9.9/25.9 and stable, ACS w/u negative - patient reports that Dilaudid does not help her pain - prefers morphine - continue PRN Tramadol/Morphine for pain management - As of 01/23, will change pain regimen to Percocet 10mg/325mg q6h prn and morphine 4mg q3h prn - As of 01/24, will change pain regimen to Percocet 10mg/325mg q6h SCHEDULED and morphine 4mg q3h prn; offered newspaper library manager for further pain control but patient defers at this time and would like to continue with the current regimen of Percocet and morphine. - continue IVFs -- will change to 1/2 NSS 150 cc/hr from LR 150cc/hr per heme recommendations as noted below - Continue home hydroxyurea and folic acid - EKG prn for chest pain - trend CBC daily - Phone consult/case discussion with patient's plumber pipe fitting, Dr. Madrigal, at [facility]. Recommendations include continuing to tx pain aggressively (with tx goal for less than 5/10 pain) and changing IVF from LR to 1/2 NSS for hydration of RBCs. Would not recommend changing home hydroxyurea course as she is on 500mg TID and maximum tolerated dose is 25-30kg (~1650 MTD for patient). No recommendations for transfusion as long as vaso-occlusive syndrome remains uncomplicated. Appreciate his assistance. Borderline personality disorder - with h/o psychogenic non-epileptic seizures - Patient should not receive Ativan for seizures - Continue home buspirone 50 mg PO TID and Cymbalta 30 mg PO daily Depression - As above FEN/GI: regular diet, 1/2 NSS at 150 cc/hr DVT PPX: SCDs, ambulation Code Status: Full code Dispo: Med/surg (2) Pseudoseizures: (3) Generalized weakness: (4) Anemia: (5) Myalgia: (6) Chest pain: (7) Borderline personality disorder: (8) Sickle cell anemia: Admission and Anticipated Discharge Date Admission Date: January 23, 2020 Supervising Physician Co-Signing Physician Notes I personally examined the patient and verified all amaro points of history and exam, discussed case, and agree with decision making with Dr Peralta. pain worse - shoudlers, L leg. upper back. nothing really in chest other than ongoing upper chest that seems to relate to shoulders. declines FLOORING SALES MANAGER. dr peralta had extensive discussion w her primary plumber pipe fitting at [place] vitals noted nad fatigued appearing heent nc at mmm breathing unlabored no accessory muscles good effort. L knee tender but no effusion sickle cell vaso-occlusive crisis - ongoing pain control, declines FLOORING SALES MANAGER. change fluids to 1/2 NSS after discussion w her plumber pipe fitting at [place] w hopes of intracellular repletion of fluid in RBC. continue hydroxyurea. continue supportive care DVT proph w lovenox Subjective Patient was seen and evaluated at bedside this morning. She complains of worsening generalized pain and states that the overall pain is currently 8/10. Pain only slightly decreases to a 7/10 with analgesia. Patient states that the pain is mostly located in the upper chest wall, b/l shoulders, upper back, and left leg (most prominently in the left knee). She notes that she feels hungry but isn't able to eat much due to fatigue and generalized pain. Review of Systems Review of Systems: Pertinent positives and negatives mentioned in HPI Constitutional: + body aches; no fever and no chills Gastrointestinal: + nausea; no abdominal pain and no vomiting Musculoskeletal: + joint pain Neurologic: + headache(s) Physical Exam Physical Exam: GENERAL: No acute distress. Well developed and well nourished. Vital signs reviewed. EYES: EOMI. HENT: Moist mucous membranes. RESPIRATORY: Clear to auscultation bilaterally. No wheezing, rales, or rhonchi. CARDIOVASCULAR: Regular rate and rhythm. No murmurs. ABDOMEN: Soft and non-tender. Normal bowel sounds. EXTREMITIES: Moderate tenderness to palpation throughout left leg, most specifically over left knee. Patient w/ voluntary guarding of left knee. No joint effusion appreciated. NEURO: A/O x4. No focal deficits. PSYCHIATRIC: Cooperative. Appropriate mood and affect. Results & Data Results & Data ([facility]) Vital Signs (Past 12 Hours) Vital Signs Temp Pulse Resp BP Pulse Ox 01/25/20 07:46 36.8 C 83 18 107/68 96 Resident Activity Tracking Resident Involvement: Resident Care Provided Care Provided: Adult Hospital Medicine (1) Anemia Anemia type: unspecified type Qualified Code(s): D64.9 - Anemia, unspecified
[2020-01-25] MEDS: oxyCODONE/ACETAMINOPHEN 10-325 TAB PO SCH (18:00)
--- NOTE | 2020-01-25 18:25 | Billing Data ---
Date of Service January 25, 2020 Coding Level of Care Code 95370 Subseq Hosp Care Lvl 3
[2020-01-25] MEDS: SODIUM CHLORIDE 0.45 % 1,000 ML IV SCH (19:24)
[2020-01-26] MEDS: oxyCODONE/ACETAMINOPHEN 10-325 TAB PO SCH ×5 (00:23→23:51)
[2020-01-26] MEDS: SODIUM CHLORIDE 0.45 % 1,000 ML IV SCH ×4 (02:29→22:32)
[2020-01-26] MEDS: traMADol HCL 50 MG TABLET PO PRN (04:16)
[2020-01-26 05:58] LABS: Hematocrit (blood only) 23.9 % (37-47); Hemoglobin 8.4 g/dL (12.0-16.0); Mean Corpuscular Hemoglobin 35.7 pg (25-34); Mean Corpuscular Hgb Conc 35.1 g/dL (32-36); Mean Corpuscular Volume 101.7 fL (80-100); Nucleated RBC # (auto) 0.03 K/uL (0-0); Nucleated RBC % (auto) 0.5 %; Platelet Count 420 K/uL (130-400); RDW Coefficient of Variation 21.2 % (11.5-14.5); RDW Standard Deviation 77.1 fL (36.4-46.3); Red Blood Count 2.35 M/uL (4.2-5.4); White Blood Count 6.16 K/uL (4.8-10.8)
[2020-01-26 06:24] LABS: BUN Creatinine Ratio 19.8 (10-20); Blood Urea Nitrogen 10 mg/dl (7-18); Calcium 8.4 mg/dl (8.5-10.1); Carbon Dioxide 27 mmol/L (21-32); Chloride 105 mmol/L (98-107); Creatinine Clr Calc Pharmacy 157.2 ml/min; Est GFR (African American) > 150.0; Est GFR (Non-African American) 135.7; Glucose 85 mg/dl (70-99); Potassium 3.8 mmol/L (3.5-5.1); Sodium 136 mmol/L (136-145)
[2020-01-26 07:21] LABS: Anisocytosis Present; Basophils # (auto) 0.04 K/uL (0-0.2); Basophils % (auto) 0.6 %; Eosinophils # (auto) 0.11 K/uL (0-0.5); Eosinophils % (auto) 1.8 %; Howell-Jolly Bodies 1+; Immature Granulocytes # (auto) 0.01 K/uL (0.00-0.02); Immature Granulocytes % (auto) 0.2 %; Lymphocytes # (auto) 3.23 K/uL (1.2-3.4); Lymphocytes % (auto) 52.4 %; Monocytes # (auto) 0.44 K/uL (0.11-0.59); Monocytes % (auto) 7.1 %; Neutrophils # (auto) 2.33 K/uL (1.4-6.5); Neutrophils % (auto) 37.9 %; Ovalocytes 1+; Poikilocytosis Present; Sickle Cells 1+
[2020-01-26] MEDS: MoRPHine SULFATE 4 MG/ML 1 ML CARP\\VIAL IV PRN ×4 (07:49→21:55)
[2020-01-26] MEDS: POLYETHYLENE (MIRALAX) 17 GM PACK PO SCH ×2 (08:55→22:33)
[2020-01-26] MEDS: ENOXAPARIN INJ 40 MG/0.4 ML SYR SQ SCH (08:55)
[2020-01-26] MEDS: PANTOprazole 40 MG TAB PO SCH (08:56)
[2020-01-26] MEDS: busPIRone 15 MG TAB PO SCH ×3 (08:56→21:57)
[2020-01-26] MEDS: HYDROXYUREA 500 MG CAP PO SCH ×3 (08:56→21:57)
[2020-01-26] MEDS: DULoxetine HCL 30 MG CAP PO SCH (08:56)
[2020-01-26] MEDS: FOLIC ACID 1 MG TAB PO SCH (08:57)
--- NOTE | 2020-01-26 12:52 | Hospitalist Progress Note ---
Date of Service January 26, 2020 Assessment & Plan (1) Vaso-occlusive sickle cell crisis: James is a 19-year-old female with a past medical history of sickle cell anemia, pseudoseizures, BPD, who was recently admitted and discharged on 12/21 for sickle cell crisis, admitted on 01/23/2020 for self-reported sickle cell crisis endorsing 10 out of 10 pain. Vaso-occlusive Sickle Cell Crisis w/ generalized pain - hemodynamically stable on room air, H/H 9.9/25.9 and stable, ACS w/u negative - patient reports that Dilaudid does not help her pain - prefers morphine - continue PRN Tramadol/Morphine for pain management - As of 01/23, will change pain regimen to Percocet 10mg/325mg q6h prn and morphine 4mg q3h prn - As of 01/24, will change pain regimen to Percocet 10mg/325mg q6h SCHEDULED and morphine 4mg q3h prn; offered electric motor mechanic for further pain control but patient defers at this time and would like to continue with the current regimen of Percocet and morphine. - As of 01/25, pain has significantly improved to a 3/10. Will continue to mo nitor. - On re-evaluation 01/25, patient states pain has slightly worsened to a 5/10 but is still being controlled with the current analgesic regimen. - continue IVFs -- will change to 1/2 NSS 150 cc/hr from LR 150cc/hr per heme recommendations as noted below - Continue home hydroxyurea and folic acid - EKG prn for chest pain - trend CBC daily - Phone consult/case discussion with patient's crop adjuster, Dr. Madrigal, at [place]. Recommendations include continuing to tx pain aggressively (with tx goal for less than 5/10 pain) and changing IVF from LR to 1/2 NSS for hydration of RBCs. Would not recommend changing home hydroxyurea course as she is on 500mg TID and maximum tolerated dose is 25-30kg (~1650 MTD for patient). No recommendations for transfusion as long as vaso-occlusive syndrome remains uncomplicated. Appreciate his assistance. Borderline personality disorder - with h/o psychogenic non-epileptic seizures - Patient should not receive Ativan for seizures - Continue home buspirone 50 mg PO TID and Cymbalta 30 mg PO daily Depression - As above FEN/GI: regular diet, 1/2 NSS at 150 cc/hr DVT PPX: Lovenox Code Status: Full code Dispo: Med/surg (2) Pseudoseizures: (3) Generalized weakness: (4) Anemia: (5) Myalgia: (6) Chest pain: (7) Borderline personality disorder: (8) Sickle cell anemia: Admission and Anticipated Discharge Date Admission Date: January 23, 2020 Supervising Physician Co-Signing Physician Notes I personally examined the patient and verified all amaro points of history and exam, discussed case, and agree with decision making with Dr De Leon. pain doing better today - understandably worried about if the relief will last. vitals noted nad fatigued appearing heent nc at mmm breathing unlabored no accessory muscles good effort. sickle cell vaso-occlusive crisis - doing better w pain control. continue current care for now. continue hydroxyurea. continue supportive care DVT proph w lovenox Subjective Patient seen and evaluated at bedside this morning. She reports "feeling tired" but states that she is overall feeling better. Patient reports current pain at a 3/10, a significant improvement from the 7-8/10 yesterday. Patient has no other complaints or concerns at this time. Review of Systems Constitutional: + body aches; no fever and no chills Respiratory: no dyspnea Cardiovascular: no chest pain Gastrointestinal: no abdominal pain, no nausea and no vomiting Physical Exam Physical Exam: GENERAL: No acute distress. Patient sleeping on initial contact when I walked into the room today. She appears well developed and well nourished. Vital signs reviewed. EYES: EOMI. HENT: Moist mucous membranes. RESPIRATORY: No respiratory distress. No cough noted during interview/exam. NEURO: A/O x4. No focal deficits. PSYCHIATRIC: Cooperative. Appropriate mood and affect. Results & Data Results & Data ([facility]) Vital Signs (Past 12 Hours) Vital Signs Temp Pulse Resp BP Pulse Ox 01/26/20 07:53 37.0 C 85 14 105/69 96 Resident Activity Tracking Resident Involvement: Resident Care Provided Care Provided: Adult Hospital Medicine (1) Anemia Anemia type: unspecified type Qualified Code(s): D64.9 - Anemia, unspecified
--- NOTE | 2020-01-26 19:21 | Billing Data ---
Date of Service January 26, 2020 Coding Level of Care Code 61427 Subseq Hosp Care Lvl 3
[2020-01-27] MEDS: oxyCODONE/ACETAMINOPHEN 10-325 TAB PO SCH ×4 (05:45→23:52)
[2020-01-27] MEDS: SODIUM CHLORIDE 0.45 % 1,000 ML IV SCH ×4 (05:45→23:52)
[2020-01-27 06:19] LABS: Basophils # (auto) 0.02 K/uL (0-0.2); Basophils % (auto) 0.3 %; Eosinophils # (auto) 0.15 K/uL (0-0.5); Eosinophils % (auto) 2.3 %; Hemoglobin 8.5 g/dL (12.0-16.0); Immature Granulocytes # (auto) 0.01 K/uL (0.00-0.02); Immature Granulocytes % (auto) 0.2 %; Lymphocytes # (auto) 2.59 K/uL (1.2-3.4); Lymphocytes % (auto) 39.8 %; Mean Corpuscular Hemoglobin 36.3 pg (25-34); Mean Corpuscular Hgb Conc 35.4 g/dL (32-36); Mean Corpuscular Volume 102.6 fL (80-100); Mean Platelet Volume 9.3 fL (7.4-10.4); Monocytes # (auto) 0.38 K/uL (0.11-0.59); Monocytes % (auto) 5.8 %; Neutrophils # (auto) 3.36 K/uL (1.4-6.5); Neutrophils % (auto) 51.6 %; Nucleated RBC % (auto) 1.6 %; Platelet Count 440 K/uL (130-400); RDW Coefficient of Variation 21.8 % (11.5-14.5); RDW Standard Deviation 79.7 fL (36.4-46.3); Red Blood Count 2.34 M/uL (4.2-5.4); White Blood Count 6.51 K/uL (4.8-10.8)
[2020-01-27 06:49] LABS: BUN Creatinine Ratio 16.5 (10-20); Blood Urea Nitrogen 10 mg/dl (7-18); Carbon Dioxide 27 mmol/L (21-32); Chloride 103 mmol/L (98-107); Creatinine Clr Calc Pharmacy 141.2 ml/min; Est GFR (African American) > 150.0; Glucose 79 mg/dl (70-99); Potassium 3.8 mmol/L (3.5-5.1); Sodium 135 mmol/L (136-145)
[2020-01-27 06:53] LABS: Anisocytosis Present; Howell-Jolly Bodies 1+; Pappenheimer Bodies 1+; Polychromasia 1+; Schistocytes 1+; Target Cells 1+
[2020-01-27] MEDS: MoRPHine SULFATE 4 MG/ML 1 ML CARP\\VIAL IV PRN ×4 (07:36→19:46)
[2020-01-27] MEDS: POLYETHYLENE (MIRALAX) 17 GM PACK PO SCH ×2 (08:52→20:05)
[2020-01-27] MEDS: ENOXAPARIN INJ 40 MG/0.4 ML SYR SQ SCH (08:52)
[2020-01-27] MEDS: HYDROXYUREA 500 MG CAP PO SCH ×3 (08:53→21:46)
[2020-01-27] MEDS: PANTOprazole 40 MG TAB PO SCH (08:53)
[2020-01-27] MEDS: DULoxetine HCL 30 MG CAP PO SCH (08:53)
[2020-01-27] MEDS: busPIRone 15 MG TAB PO SCH ×3 (08:53→20:05)
[2020-01-27] MEDS: FOLIC ACID 1 MG TAB PO SCH (08:53)
--- NOTE | 2020-01-27 10:52 | Hospitalist Progress Note ---
Date of Service January 27, 2020 Assessment & Plan (1) Vaso-occlusive sickle cell crisis: James is a 19-year-old female with a past medical history of sickle cell anemia, pseudoseizures, BPD, who was recently admitted and discharged on 12/21 for sickle cell crisis, admitted on 01/23/2020 for self-reported sickle cell crisis endorsing 10 out of 10 pain. Vaso-occlusive Sickle Cell Crisis w/ generalized pain - hemodynamically stable on room air, H/H 9.9/25.9 and stable, ACS w/u negative - patient reports that Dilaudid does not help her pain - prefers morphine - continue PRN Tramadol/Morphine for pain management - As of 01/23, will change pain regimen to Percocet 10mg/325mg q6h prn and morphine 4mg q3h prn - As of 01/24, will change pain regimen to Percocet 10mg/325mg q6h SCHEDULED and morphine 4mg q3h prn; offered deputy editor in chief for further pain control but patient def ers at this time and would like to continue with the current regimen of Percocet and morphine. - As of 01/25, pain has significantly improved to a 3/10. Will continue to monitor. - On re-evaluation 01/25, patient states pain has slightly worsened to a 5/10 but is still being controlled with the current analgesic regimen. - On 01/26 AM, patient states that pain has worsened and is now at a 7-8/10. Discussed symptoms/concerns and then had a pseudoseizure (see below for further information). - On re-evaluation afternoon of 01/26, patient states that pain has improved slightly and despite still being in pain she is requesting d/c home - 01/26 at 4:50 pm, patient preparing for d/c home and is becoming anxious about the pain management as outpatient; patient now stating that she can't be d /c at this time due to worsening pain - IVFs for hydration -- on 01/24 fluids were changed from LR 150 cc/hr to 1/2 NSS 150 cc/hr from LR 150cc/hr per heme recommendations as noted below - Continue home hydroxyurea and folic acid - EKG prn for chest pain - trend CBC daily - Phone consult/case discussion with patient's garment tag stringer, Dr. Madrigal, at [place]. Recommendations include continuing to tx pain aggressively (with tx goal for less than 5/10 pain) and changing IVF from LR to 1/2 NSS for hydration of RBCs. Would not recommend changing home hydroxyurea course as she is on 500mg TID and maximum tolerated dose is 25-30kg (~1650 MTD for patient). No recommendations for transfusion as long as vaso-occlusive syndrome remains uncomplicated. Appreciate his assistance. - Patient to f/u with Dr. De Leon on 02/01/20 at 1:30pm and also with Dr. Bailey on 02/09/20 at 2:30pm. - Also encouraged patient to f/u with Dr. Madrigal, garment tag stringer, for tomorrow's pre-scheduled virtual appointment. Borderline personality disorder - with h/o psychogenic non-epileptic seizures - Patient should not receive Ativan for seizures - Continue home buspirone 50 mg PO TID and Cymbalta 30 mg PO daily - 01/27/20: During initial contact and discussion this morning, at 8:22AM, patient was discussing her increased stress when she started blinking repeatedly, said "hold on my head hurts" and then fell backwards onto the bed from a sitting position to supine position. Patient had intermittent jerking movements of the upper extremity and upper torso. She also intermittently opened her eyes to look at me during this episode. She was unresponsive to verbal stimuli w/ intermittent jerking of the upper extremities for approximately 1 minute. Patient then opened her eyes and said "did you see that? I think I just had a seizure." Upon waking up, patient was immediately A/Ox4. There was no post-ictal state. Patient stated that she had a headache. With further discussion, patient reports that increased stress "brings on" these episodes. She then asked me if she would be allowed to lay down with her eyes closed and in quiet for some time. She requested that I come back later for further ev aluation. Patient with no other requests and states that there is nothing I can do/get for her at this time. Will return to evaluate patient and continue to monitor. Depression - As above FEN/GI: regular diet, 1/2 NSS at 150 cc/hr DVT PPX: Lovenox Code Status: Full code Dispo: Med/surg (2) Pseudoseizures: (3) Generalized weakness: (4) Anemia: (5) Myalgia: (6) Chest pain: (7) Borderline personality disorder: (8) Sickle cell anemia: Admission and Anticipated Discharge Date Admission Date: January 23, 2020 Supervising Physician Co-Signing Physician Notes I personally examined the patient and verified all amaro points of history and exam, discussed case, and agree with decision making with Dr De Leon. initially thought about going home but then changed mind pain still too up and down vitals noted nad fatigued appearing heent nc at mmm breathing unlabored no accessory muscles good effort. sickle cell vaso-occlusive crisis - continue pain control, fluids and supportive care DVT proph w lovenox Subjective Patient seen and evaluated at bedside this morning. Patient states that she feels "much worse today." She rates the current pain at a 7-8/10; with erica lgesia, the pain is decreased to 5-6/10. Patient states that she "feels tired" and reports not sleeping well overnight. She does also endorse increased stressors but she does not want to elaborate on these stressors. Review of Systems Constitutional: + body aches Respiratory: no cough and no dyspnea Cardiovascular: no chest pain Musculoskeletal: + diffuse pain, most prominent in the upper back/shoulders Neurologic: + seizure-like activity and + headache(s) Physical Exam Physical Exam: GENERAL: No acute distress. Patient sleeping on initial contact when I walked into the room today. She appears well developed and well nourished. Vital signs reviewed. EYES: EOMI. HENT: Moist mucous membranes. RESPIRATORY: No respiratory distress. No cough noted during interview/exam. NEURO: A/O x4. No focal deficits. PSYCHIATRIC: Cooperative. Appropriate mood and affect. Results & Data Results & Data ([facility]) Vital Signs (Past 12 Hours) Vital Signs Temp Pulse Resp BP BP Pulse Ox 01/27/20 07:19 36.9 C 76 16 110/74 98 01/26/20 23:00 37.1 C 81 14 113/68 96 Resident Activity Tracking Resident Involvement: Resident Care Provided Care Provided: Adult Hospital Medicine (1) Anemia Anemia type: unspecified type Qualified Code(s): D64.9 - Anemia, unspecified
--- NOTE | 2020-01-27 16:13 | Discharge Summary ---
Date of Service January 28, 2020 Admission HPI Per Admitting Provider Patient is a 19-year-old female with a past medical history of sickle cell anemia, pseudoseizures, BPD, who was recently admitted and discharged on 12/21 for sickle cell crisis she presents today in self-reported sickle cell crisis endorsing 10 out of 10 pain. Patient reports has been having a sickle cell crisis for the past few days, the pain is been slowly increasing in nature, she reports the majority of her pain is in her chest, right down the center of her chest, she also has some abdominal pain, she also is noting that her left leg is becoming increasingly weak. She states that her typical symptoms when she has these attacks. She denies any shortness of breath, difficulty breathing, significant chest pain on the left side of her chest, pain is rating down her arms, pain radiating to her back, or other concerning signs or symptoms that ACS is present, reviewed EKG which was within normal limits, she saturating trading well on room air, blood pressure is good. Patient reports has been in normal state of health, attributes current sickle cell crisis to changes in temperature, she denies any constitutional symptoms including fever, chills, nausea, vomiting, diarrhea, generalized malaise, or other concerning signs or symptoms. Patient reports tolerating her diet, voiding normally, stooling normally, and sleeping well. Patient states in the past Dilaudid does not work well for pain she prefers morphine. Primary team was called for admission. Patient will be admitted for further evaluation management. Primary Care Provider: [facility] Admission Exam Per Admitting Provider General: In no acute distress HEENT: Normocephalic atraumatic Neck: Normal to visual inspection, trachea midline Cardiac: Regular rate and rhythm I did not appreciate any significant murmurs rubs or gallops, normal S1, normal S2, negative calf pain, negative pedal edema Respiratory: Clear to auscultation bilaterally without significant wheezes rales or rhonchi, symmetrical chest expansion bilaterally GI: Soft, tender to palpation all 4 quadrants, normal bowel sounds MSK: Moves all extremities, some pain in left lower extremity Skin: Cool dry and intact Neuro: Alert and oriented x4 Psych: Calm and participating in the interview Principal Diagnosis vaso-occlusive sickle cell crisis Discharge Exam GENERAL: No acute distress. She appears well developed and well nourished. Vital signs reviewed. EYES: EOMI. HENT: Moist mucous membranes. RESPIRATORY: No respiratory distress. No cough noted during interview/exam. NEURO: A/O x4. No focal deficits. PSYCHIATRIC: Cooperative. Appropriate mood and affect. Discharge Data Allergies Allergy/AdvReac Type Severity Reaction Status Date / Time No Known Allergies Allergy Verified 01/22/20 23:45 Consultations 01/23/20 00:48 ED Decision to Admit Stat 01/23/20 01:40 Consult Case Management - Discharge Planning Routine Hospital Course (1) Vaso-occlusive sickle cell crisis: James is a 19-year-old female with a past medical history of sickle cell a nemia, pseudoseizures, BPD, who was recently admitted and discharged on 12/21 for sickle cell crisis, admitted on 01/23/2020 for self-reported sickle cell crisis endorsing 10 out of 10 pain. Vaso-occlusive Sickle Cell Crisis w/ generalized pain - hemodynamically stable on room air, H/H 9.9/25.9 and stable, ACS w/u negative - patient reports that Dilaudid does not help her pain - prefers morphine - continue PRN Tramadol/Morphine for pain management - As of 01/23, will change pain regimen to Percocet 10mg/325mg q6h prn and morphine 4mg q3h prn - As of 01/24, will change pain regimen to Percocet 10mg/325mg q6h SCHEDULED and morphine 4mg q3h prn; offered steam table worker for further pain control but patient defers at this time and would like to continue with the current regimen of Percocet and morphine. - As of 01/25, pain has significantly improved to a 3/10. Will continue to monitor. - On re-evaluation 01/25, patient states pain has slightly worsened to a 5/10 but is still being controlled with the current analgesic regimen. - On 01/26 AM, patient states that pain has worsened and is now at a 7-8/10. Discussed symptoms/concerns and then had a pseudoseizure (see below for further information). - On re-evaluation afternoon of 01/26, patient states that pain has improved slightly and despite still being in pain she is adamantly requesting d/c home. - On plan for d/c home, patient then states that the pain has significantly worsened and she does not feel ready for d/c home. - 01/27, patient states that her pain is well controlled and is currently a 4/10. She is ready for d/c home. Encouraged f/u as noted below. - IVFs for hydration -- on 01/24 fluids were changed from LR 150 cc/hr to 1/2 NSS 150 cc/hr from LR 150cc/hr per heme recommendations as noted below - Continue home hydroxyurea and folic acid - Phone consult/case discussion with patient's mail messenger contractor, Dr. Madrigal, at [place]. Recommendations include continuing to tx pain aggressively (with tx goal for less than 5/10 pain) and changing IVF from LR to 1/2 NSS for hydration of RBCs. Would not recommend changing home hydroxyurea course as she is on 500mg TID and maximum tolerated dose is 25-30kg (~1650 MTD for patient). No recommendations for transfusion as long as vaso-occlusive syndrome remains uncomplicated. Appreciate his assistance. - Patient to f/u with Dr. De Leon on 02/01/20 at 1:30pm and Dr. Bailey on 02/09/20 at 2:30pm. - Also encouraged patient to f/u with Dr. Madrigal, mail messenger contractor, for today's pre- scheduled virtual appointment. - Will plan for outpatient pain control with Percocet 10/325mg q6h prn; due to hx of overdose, patient will only be prescribed quantity of 10 pills per rx; she will need regular outpatient follow up for pain control and prescriptions. Would encourage pill count/review with patient at each outpatient visit. Borderline personality disorder - with h/o psychogenic non-epileptic seizures - Patient should not receive Ativan for seizures - Continue home buspirone 50 mg PO TID and Cymbalta 30 mg PO daily - 01/27/20: During initial contact and discussion this morning, at 8:22AM, patient was discussing her increased stress when she started blinking repeatedly, said "hold on my head hurts" and then fell backwards onto the bed from a sitting position to supine position. Patient had intermittent non- epileptiform jerking movements of the upper extremity and upper torso. She also intermittently opened her eyes to look at me during this episode. She was unresponsive w/ intermittent jerking of the upper extremities for less than 1 minute. Patient then opened her eyes and said "did you see that? I think I just had a seizure." Upon waking up, patient was immediately A/Ox4. There was no post -ictal state. Patient stated that she had a headache. With further discussion, patient reports that increased stress "brings on" these episodes. She then asked me if she would be allowed to lay down with her eyes closed and in quiet for some time. She requested that I come back later for further evaluation. Patient with no other requests and states that there is nothing I can do/get for her at this time. Will continue to evaluate patient. Depression - As above FEN/GI: regular diet, 1/2 NSS at 150 cc/hr DVT PPX: Lovenox Code Status: Full code Dispo: Med/surg (2) Pseudoseizures: (3) Generalized weakness: (4) Anemia: (5) Myalgia: (6) Chest pain: (7) Borderline personality disorder: (8) Sickle cell anemia: Total Time Total Time Spent Total Time Spent (In Minutes): <30 Discharge Plan Discharge Items Patient Disposition: Home - Self-Care Reason For Visit: SICKLE CELL CRISIS Discharge Diagnosis: vaso-occlusive sickle cell crisis Condition on Discharge: Good Activity: Resume your previous activity Non-emergency contact: Primary Care Provider Call non-emergency contact if: you have any medication questions, your symptoms worsen, your pain is not controlled, your pain is worsening and you have a fever Follow-up/Referrals: [facility] [Primary Care Provider] - Zamzam Bailey MD [Resident] - (Follow up at your scheduled appointment on 02/09/20 at 2:30pm) Mónica De Leon DO [Resident] - (Follow up at your scheduled appointment on 02/01/20 at 1:30pm) Diet: Regular Addtl Attending Provider Instructions: James, It was our pleasure to care for you at [facility] from 01/23/20 to 01/28/20. You were admitted to the hospital for an acute worsening of your sickle cell pain. This was managed with IV fluids and pain management. It is very important that you take care of yourself. As we discussed, make sure to stay hydrated, sleep well/get plenty of rest, remember to eat multiple times a day, and stay warm. It is also VERY important that you take your Hydroxyurea as prescribed, 500mg by mouth three times a day. Continue to also take your folic acid as recommended. You were concerned about sleep habits, poor sleep, and sleeping at odd hours. We talked a lot about optimal "sleep hygiene." With regards to your sleep habits, try to work on improving your sleep hygiene. As we discussed, this would include not looking at your phone/Facebook for 1 hour prior to laying down in bed, not watching TV for 1 hour prior to bed, and spending 30 minutes to 1 hour calming down/deep breathing prior to sleep. You can also try coloring for relaxation. You can do it! Please follow up with Dr. Madrigal for your hematology follow up - this is scheduled as a virtual appointment THIS AFTERNOON! You also have a follow up appointment scheduled with Dr. De Leon on 02/01/20 at 1:30 pm - please make sure to come to this appointment. An additional follow up appointment is scheduled with Dr. Bailey on 02/09/20 at 2:30 pm - please also make sure to come to this appointment! Dr. De Leon and Dr. Bailey are located at the same [facility] - [address] in the building next to the hospital ([address] [place] [address]). If you have any questions, please give either Dr. De Leon or Dr. Bailey a call at [phone]. Pending Studies at Discharge: No Stand-Alone Forms: My [facility], Smoking Cessation Medications and DC Order Prescriptions: New oxycodone-acetaminophen [Percocet] 10-325 mg tablet 1 tab PO Q6H PRN (Reason: pain) Qty: 10 RF: 0 Continued tramadol 50 mg Tablet 50 mg PO Q12 PRN (Reason: Pain) RF: 0 folic acid 1 mg Tablet 2 mg PO DAILY RF: 0 hydroxyurea 500 mg capsule 500 mg PO TID RF: 0 pantoprazole 40 mg tablet,delayed release (DR/EC) 40 mg PO DAILY RF: 0 buspirone 15 mg tablet 15 mg PO TID RF: 0 duloxetine 30 mg capsule,delayed release(DR/EC) 30 mg PO DAILY RF: 0 Discontinued oxycodone-acetaminophen 5-325 mg tablet 1 tab PO DAILY PRN (Reason: Pain) RF: 0 Discharge Orders: Discharge Order (Routine); Ordered 01/28/20 Ordered By: Mónica Aragon/Other Patient Handouts: Sickle Cell Anemia Admission Data Admit Date/Time: 01/23/20 01:38 Attending Provider: Cesar Kerr Admit Provider: Tom Castrejon I. Primary Care Provider: [facility] Other Providers: Chandler Mena ; Jamie Shaw Other Interventions: Discharge Summary Assessment (RN) Last Done: 01/28/20 11:07 Supervising Physician Co-Signing Physician Notes I personally examined the patient and verified all amaro points of history and exam, discussed case, and agree with decision making with Dr De Leon. feeling up to going home now. vitals noted nad fatigued appearing heent nc at mmm breathing unlabored no accessory muscles good effort. sickle cell vaso-occlusive crisis - very difficult for outpt pain control given borderline and recent SI - but has friend who can distribute meds and will only give small quanitities at a time. has f/u friday. will need close and ongoing PCP and hematology f/u DVT proph w lovenox utilized during this stay otherwise as above Resident Activity Tracking Resident Involvement: Resident Care Provided Care Provided: Adult Hospital Medicine
--- NOTE | 2020-01-27 19:47 | Billing Data ---
Date of Service January 27, 2020 Coding Level of Care Code 85922 Subseq Hosp Care Lvl 3
[2020-01-28] MEDS: MoRPHine SULFATE 4 MG/ML 1 ML CARP\\VIAL IV PRN ×2 (03:26→09:30)
[2020-01-28] MEDS: SODIUM CHLORIDE 0.45 % 1,000 ML IV SCH (06:21)
[2020-01-28] MEDS: oxyCODONE/ACETAMINOPHEN 10-325 TAB PO SCH ×2 (06:22→12:46)
[2020-01-28 07:53] LABS: Basophils # (auto) 0.03 K/uL (0-0.2); Basophils % (auto) 0.6 %; Eosinophils # (auto) 0.13 K/uL (0-0.5); Eosinophils % (auto) 2.5 %; Hematocrit (blood only) 23.1 % (37-47); Hemoglobin 8.2 g/dL (12.0-16.0); Immature Granulocytes # (auto) 0.01 K/uL (0.00-0.02); Immature Granulocytes % (auto) 0.2 %; Lymphocytes # (auto) 2.49 K/uL (1.2-3.4); Lymphocytes % (auto) 48.7 %; Mean Corpuscular Hemoglobin 36.1 pg (25-34); Mean Corpuscular Hgb Conc 35.5 g/dL (32-36); Mean Corpuscular Volume 101.8 fL (80-100); Mean Platelet Volume 9.3 fL (7.4-10.4); Monocytes # (auto) 0.33 K/uL (0.11-0.59); Monocytes % (auto) 6.5 %; Neutrophils # (auto) 2.12 K/uL (1.4-6.5); Neutrophils % (auto) 41.5 %; Nucleated RBC # (auto) 0.18 K/uL (0-0); Nucleated RBC % (auto) 3.4 %; Platelet Count 426 K/uL (130-400); RDW Coefficient of Variation 22.2 % (11.5-14.5); Red Blood Count 2.27 M/uL (4.2-5.4); White Blood Count 5.11 K/uL (4.8-10.8)
[2020-01-28 08:52] LABS: Anisocytosis Present; Pappenheimer Bodies 1+; Poikilocytosis Present; Polychromasia 1+; Target Cells 1+
[2020-01-28] MEDS: PANTOprazole 40 MG TAB PO SCH (09:29)
[2020-01-28] MEDS: ENOXAPARIN INJ 40 MG/0.4 ML SYR SQ SCH (09:29)
[2020-01-28] MEDS: DULoxetine HCL 30 MG CAP PO SCH (09:29)
[2020-01-28] MEDS: POLYETHYLENE (MIRALAX) 17 GM PACK PO SCH (09:29)
[2020-01-28] MEDS: busPIRone 15 MG TAB PO SCH (09:30)
[2020-01-28] MEDS: FOLIC ACID 1 MG TAB PO SCH (09:30)
[2020-01-28] MEDS: HYDROXYUREA 500 MG CAP PO SCH (09:30)
--- NOTE | 2020-01-28 18:32 | Billing Data ---
Date of Service January 28, 2020 Coding Level of Care Code D/C Day Management <30 mins
== END 2020-01-28 13:06 | disposition home or self-care (01) | DRG 812 ==
LOC: ED 22:37 → SUATTDRO 01-23 01:38 → 3W 01-23 01:38

== ENCOUNTER 2020-01-30 21:06 | Inpatient (IN) ==
[2020-01-30] MEDS ORDERED: HYDROmorphone INJ 1 MG/ML SYRINGE IV STA (21:42)
[2020-01-30] MEDS ORDERED: ONDANSETRON INJ 2 MG/ML 2 ML VIAL IV STA (21:44)
[2020-01-30] MEDS ORDERED: ACETAMINOPHEN 1,000 MG/100 ML VIAL IV STA (21:44)
[2020-01-30] MEDS ORDERED: SODIUM CHLORIDE 0.9% 1000ML 2,000 ML IV ONE (21:44)
[2020-01-30 22:10] LABS: Basophils # (auto) 0.02 K/uL (0-0.2); Basophils % (auto) 0.3 %; Eosinophils # (auto) 0.05 K/uL (0-0.5); Eosinophils % (auto) 0.8 %; Hematocrit (blood only) 25.4 % (37-47); Hemoglobin 9.3 g/dL (12.0-16.0); Immature Granulocytes # (auto) 0.01 K/uL (0.00-0.02); Immature Granulocytes % (auto) 0.2 %; Lymphocytes % (auto) 32.1 %; Mean Corpuscular Hemoglobin 37.3 pg (25-34); Mean Corpuscular Hgb Conc 36.6 g/dL (32-36); Monocytes # (auto) 0.44 K/uL (0.11-0.59); Monocytes % (auto) 7.4 %; Neutrophils # (auto) 3.49 K/uL (1.4-6.5); Neutrophils % (auto) 59.2 %; Nucleated RBC # (auto) 0.42 K/uL (0-0); Nucleated RBC % (auto) 7.2 %; Platelet Count 405 K/uL (130-400); RDW Coefficient of Variation 23.4 % (11.5-14.5); RDW Standard Deviation 85.4 fL (36.4-46.3); Red Blood Count 2.49 M/uL (4.2-5.4); Reticulocyte % 10.2 % (0.5-2.0); Reticulocytes # 0.25 10^6/uL (0.02-0.10); White Blood Count 5.91 K/uL (4.8-10.8)
[2020-01-30 22:25] LABS: Alanine Aminotransferase 26 U/L (12-78); Albumin Level 4.3 gm/dl (3.4-5.0); Aspartate Aminotransferase 40 U/L (15-37); BUN Creatinine Ratio 10.5 (10-20); Blood Urea Nitrogen 6 mg/dl (7-18); Calcium 9.4 mg/dl (8.5-10.1); Carbon Dioxide 25 mmol/L (21-32); Chloride 107 mmol/L (98-107); Creatinine Clr Calc Pharmacy 146.7 ml/min; Est GFR (African American) > 150.0; Glucose 86 mg/dl (70-99); Lipase 194 U/L (73-393); Potassium 3.3 mmol/L (3.5-5.1); Sodium 139 mmol/L (136-145)
[2020-01-30 22:28] LABS: INR 1.1 (0.9-1.1); Partial Thromboplastin Ratio 0.8; Partial Thromboplastin Time 23.4 Seconds (21.0-31.0)
[2020-01-30 22:30] LABS: Alkaline Phosphatase 86 U/L (45-117); Bilirubin,Total 3.3 mg/dl (0.2-1); Creatine Kinase 38 U/L (26-192); Creatine Kinase MB < 1.0 ng/ml (0.5-3.6); Globulin 4.5 gm/dl (2.5-4.0); Total Protein 8.8 gm/dl (6.4-8.2); Troponin I < 0.015 ng/ml (0-0.045)
[2020-01-30 22:39] LABS: Anisocytosis Present; Howell-Jolly Bodies 1+; Polychromasia 1+; Sickle Cells 1+
[2020-01-30 23:10] LABS: Pregnancy Test, Serum Negative (Negative)
--- NOTE | 2020-01-30 23:28 | History & Physical Report ---
Date of Service January 30, 2020 Assessment & Plan (1) Sickle cell crisis: Sickle cell crisis/generalized pain- NSS + KCl 20 mEq 150 mils per hour Hydroxyurea 500 mg p.o. 3 times daily Folic acid 2 mg p.o. daily Tramadol 50 mg p.o. every 6 hours as needed mild pain Oxycodone/acetaminophen 10/325, 1 p.o. every 6 hours as needed moderate pain For severe pain: Diphenhydramine 25 mg IV every 3 hours as needed as premedication to Dilaudid 0.5 mg IV every 3 hours as needed Present on Admission?: Yes (2) Generalized pain: See above Present on Admission?: Yes (3) Pseudoseizures: Pseudoseizures/borderline personality disorder/depression- Continue buspirone 15 mg p.o. 3 times daily. Increase duloxetine from 30 to 60 mg p.o. daily Present on Admission?: Yes (4) Borderline personality disorder: See above Present on Admission?: Yes (5) Depression: See above Present on Admission?: Yes (6) GERD (gastroesophageal reflux disease): Continue pantoprazole Present on Admission?: Yes History of Present Illness Chief Complaint: The patient presents to the emergency department with the complaint of acute onset of generalized pain that she associates with sickle cell crisis Primary Care Provider: Zamzam Bailey MD The patient is a 19-year-old female with a past medical history including vaso- occlusive sickle cell crisis, pseudoseizures, elevated LFTs, sickle cell anemia, borderline personality disorder, depression, and suicide gesture. She has had multiple admissions this year for sickle cell crises. She has no particular event that she can associate with triggering this crisis. Allergies Allergy/AdvReac Type Severity Reaction Status Date / Time No Known Allergies Allergy Verified 01/30/20 22:15 Home Medications Medication Instructions Recorded Confirmed Type folic acid 2 mg PO DAILY 11/18/19 01/30/20 History tramadol 50 mg PO Q12 PRN 11/18/19 01/30/20 History buspirone 15 mg PO TID 01/22/20 01/30/20 History duloxetine 30 mg PO DAILY 01/22/20 01/30/20 History hydroxyurea 500 mg PO TID 01/22/20 01/30/20 History pantoprazole 40 mg PO DAILY 01/22/20 01/30/20 History oxycodone-acetaminophen [Percocet] 1 tab PO Q6H PRN #10 tab 01/28/20 01/30/20 Rx Past Med/Surg History Medical History Borderline personality disorder Pneumonia Seizure-like activity Sickle cell anemia Sickle cell crisis Surgical History No pertinent past surgical history Family History Mother Hypertension Father Ulcer Other Family history non-contributory Social History Smoking Status: Never smoker Second Hand Exposure: No; Hx Alcohol Use: Yes Alcohol type: wine Hx Substance Use: No Preferred Language: Turkish Communication Ability: Effective Filling Station Attendant Required: No Beliefs That Will Affect Care: None marital status: Single Current Living Situation: Other Current Living Situation Comment: Apartment with Roomates 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 current occupation: [employer] major Feels Safe at Home: Yes Safety Concerns: Feels Safe At This Time Assistive Devices: None Review of Systems Review of Systems: The patient denies chest pain, palpitations, shortness of breath, dyspnea on exertion, cough, lower extremity swelling, sore throat, fevers, chills, sweats, weight change, fatigue, nausea, vomiting, diarrhea , constipation, abdominal pain, pelvic pain, blood in urine or stool, dysuria, urinary frequency or urgency, lightheadedness, dizziness, headache, memory loss, loss of consciousness, rash, abnormal bruising or bleeding, imbalance, focal weakness, or night sweats. The review of systems is otherwise negative other than for that already noted above, and at least 10 systems have been reviewed. Physical Exam Physical Exam: The patient is awake, alert and oriented 3, well developed and well nourished, normocephalic and atraumatic, lying in bed and in no acute distress. HEENT--PERRL, EOMI, mucous membranes and oropharynx dry. Neck--supple. No JVD. No bruits. Thyroid normal, trachea midline, no adenopathy. Heart--normal S1 and S2. No murmurs, rubs or gallops. Lungs--clear bilaterally, no respiratory distress, no accessory muscle use. Abdomen--normal bowel sounds and soft. Nontender. Nondistended, no hernias or masses, no organomegaly. Extremities--no cyanosis or clubbing. No edema. There are good distal pulses b/l. Dermatologic--normal skin turgor, normal color, no abnormal lymph nodes, no rash. Neurologic--cranial nerves II through XII grossly intact. Rheumatologic--normal range of motion. Psychiatric--normal affect. Results & Data Results & Data ([facility]) Vital Signs (Past 12 Hours) Vital Signs Temp Pulse Resp BP Pulse Ox 01/30/20 22:30 76 18 107/70 100 01/30/20 22:25 95 H 18 99 01/30/20 21:07 98.4 F 95 H 18 130/84 99 Laboratory Results Laboratory Results WBC 5.91 K/uL (4.8-10.8) 01/30/20 21:57 RBC 2.49 M/uL (4.2-5.4) L 01/30/20 21:57 Hgb 9.3 g/dL (12.0-16.0) L 01/30/20 21:57 Hct 25.4 % (37-47) L 01/30/20 21:57 MCV 102.0 fL (80-100) H 01/30/20 21:57 MCH 37.3 pg (25-34) H 01/30/20 21:57 MCHC 36.6 g/dL (32-36) H 01/30/20 21:57 RDW Std Deviation 85.4 fL (36.4-46.3) H 01/30/20 21:57 RDW Coeff of Nando 23.4 % (11.5-14.5) H 01/30/20 21:57 Plt Count 405 K/uL (130-400) H 01/30/20 21:57 MPV 9.0 fL (7.4-10.4) 01/30/20 21:57 Immature Gran % (Auto) 0.2 % 01/30/20 21:57 Neut % (Auto) 59.2 % 01/30/20 21:57 Lymph % (Auto) 32.1 % 01/30/20 21:57 [place] % (Auto) 7.4 % 01/30/20 21:57 Eos % (Auto) 0.8 % 01/30/20 21:57 Baso % (Auto) 0.3 % 01/30/20 21:57 Reticulocyte % (Auto) 10.2 % (0.5-2.0) H 01/30/20 21:57 Neut # (Auto) 3.49 K/uL (1.4-6.5) 01/30/20 21:57 Lymph # (Auto) 1.90 K/uL (1.2-3.4) 01/30/20 21:57 [place] # (Auto) 0.44 K/uL (0.11-0.59) 01/30/20 21:57 Eos # (Auto) 0.05 K/uL (0-0.5) 01/30/20 21:57 Baso # (Auto) 0.02 K/uL (0-0.2) 01/30/20 21:57 Reticulocyte # 0.25 10^6/uL (0.02-0.10) H 01/30/20 21:57 Immature Gran # (Auto) 0.01 K/uL (0.00-0.02) 01/30/20 21:57 Absolute Nucleated RBC 0.42 K/uL (0-0) H 01/30/20 21:57 Nucleated RBC % (auto) 7.2 % 01/30/20 21:57 Polychromasia 1+ 01/30/20 21:57 Anisocytosis Present 01/30/20 21:57 Sickle Cells 1+ 01/30/20 21:57 [facility] Bodies 1+ 01/30/20 21:57 PT 12.0 Seconds (9.0-12.0) 01/30/20 21:57 INR 1.1 (0.9-1.1) 01/30/20 21:57 APTT 23.4 Seconds (21.0-31.0) 01/30/20 21:57 PTT Ratio 0.8 01/30/20 21:57 Sodium 139 mmol/L (136-145) 01/30/20 21:57 Potassium 3.3 mmol/L (3.5-5.1) L 01/30/20 21:57 Chloride 107 mmol/L (98-107) 01/30/20 21:57 Carbon Dioxide 25 mmol/L (21-32) 01/30/20 21:57 Anion Gap 6.0 (3-11) 01/30/20 21:57 BUN 6 mg/dl (7-18) L 01/30/20 21:57 Creatinine 0.59 mg/dl (0.6-1.2) L 01/30/20 21:57 Est Cr Clr Drug Dosing 146.7 ml/min 01/30/20 21:57 Est GFR ( Amer) > 150.0 01/30/20 21:57 Est GFR (Non-Af Amer) 131.0 01/30/20 21:57 BUN/Creatinine Ratio 10.5 (10-20) 01/30/20 21:57 Glucose 86 mg/dl (70-99) 01/30/20 21:57 Calcium 9.4 mg/dl (8.5-10.1) 01/30/20 21:57 Total Bilirubin 3.3 mg/dl (0.2-1) H 01/30/20 21:57 AST 40 U/L (15-37) H 01/30/20 21:57 ALT 26 U/L (12-78) 01/30/20 21:57 Alkaline Phosphatase 86 U/L (45-117) 01/30/20 21:57 Total Creatine Kinase 38 U/L (26-192) 01/30/20 21:57 CK-MB (CK-2) < 1.0 ng/ml (0.5-3.6) 01/30/20 21:57 CK/CKMB % Calc TNP 01/30/20 21:57 Troponin I < 0.015 ng/ml (0-0.045) 01/30/20 21:57 Total Protein 8.8 gm/dl (6.4-8.2) H 01/30/20 21:57 Albumin 4.3 gm/dl (3.4-5.0) 01/30/20 21:57 Globulin 4.5 gm/dl (2.5-4.0) H 01/30/20 21:57 Albumin/Globulin Ratio 1.0 (0.9-2) 01/30/20 21:57 Lipase 194 U/L (73-393) 01/30/20 21:57 HCG, Qual Negative (Negative) 01/30/20 21:58 SARS-CoV-2 Ag (Rapid) Negative (Negative) 01/30/20 23:17 Blood Type B Positive 01/30/20 21:57 Antibody Screen NEGATIVE 01/30/20 21:57 Code Status & VTE Plan Code Status Full code VTE Prophylaxis Plan VTE Prophylaxis will be ordered: Yes PG Care Time/CCT Total # of Minutes Spent Total Time Spent with Patient: Total time spent is greater than 50% in coordination of care (as documented) at patient's floor/unit and/or counseling patient: Coding Level of Care Code 92794 Initial Inpt Care Lvl 3 Diagnoses Sickle cell crisis D57.00 Generalized pain R52 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 Borderline personality disorder F60.3 Depression F33.2 Active/Remission status: currently active Depression Type: major depressive disorder Major depression episode severity: severe Major depression recurrence: recurrent Psychotic features: without psychotic features GERD (gastroesophageal reflux disease) K21.9 (1) Depression Active/Remission status: currently active Depression Type: major depressive disorder Major depression episode severity: severe Major depression recurrence: recurrent Psychotic features: without psychotic features Qualified Code(s): F33.2 - Major depressive disorder, recurrent severe without psychotic features
--- NOTE | 2020-01-31 00:46 | Emergency Department Note ---
History of Present Illness General Chief complaint: Illness Stated complaint: sickle cell crisis Time Seen by Provider: 01/30/20 21:33 Source: patient, RN notes reviewed and old records reviewed Mode of arrival: ambulatory Limitations: no limitations History of Present Illness Provider complaint: Sickle cell crisis Onset (ago): day(s) 1 Location: chest Radiation: back Severity: moderate Pain Consistency: + intermittent Maximum Pain Intensity: 5 Current Pain Intensity: 5 Quality: + aching Relieved By: + immobilization and + rest Exacerbated By: + movement Associated symptoms: + chest pain, + loss of appetite, + nausea/vomiting, + shortness of breath and + weakness; no fever/chills Treatments prior to arrival: none This is a 19-year-old female who presents emergency department complaining of sickle cell crisis. Patient believes she is back in a sickle cell crisis. She is complaining of chest and abdominal pain. She denies any fevers or chills or exposure to the virus. She has not taken anything for the pain. She reports movement makes the pain worse however immobilization makes the pain better- Home Medications Medication Instructions Recorded Confirmed Type folic acid 2 mg PO DAILY 11/18/19 01/30/20 History tramadol 50 mg PO Q12 PRN 11/18/19 01/30/20 History buspirone 15 mg PO TID 01/22/20 01/30/20 History duloxetine 30 mg PO DAILY 01/22/20 01/30/20 History hydroxyurea 500 mg PO TID 01/22/20 01/30/20 History pantoprazole 40 mg PO DAILY 01/22/20 01/30/20 History oxycodone-acetaminophen [Percocet] 1 tab PO Q6H PRN #10 tab 01/28/20 01/30/20 Rx Allergies Allergy/AdvReac Type Severity Reaction Status Date / Time No Known Allergies Allergy Verified 01/30/20 22:15 Past Med/Surg History Medical History Borderline personality disorder Pneumonia Seizure-like activity Sickle cell anemia Sickle cell crisis Surgical History No pertinent past surgical history Family History Mother Hypertension Father Ulcer Other Family history non-contributory Social History Smoking Status: Never smoker Second Hand Exposure: No; Hx Alcohol Use: Yes Alcohol type: wine Hx Substance Use: No Preferred Language: Uzbek Communication Ability: Effective Can Worker Required: No Beliefs That Will Affect Care: None marital status: Single Current Living Situation: Other Current Living Situation Comment: Apartment with Roomates 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 current occupation: [employer] major Feels Safe at Home: Yes Safety Concerns: Feels Safe At This Time Assistive Devices: Glasses Review of Systems A total of 10 systems reviewed and were otherwise negative Physical Exam Vital Signs Vital Signs - 24 hr 01/30/20 21:07 01/30/20 22:25 01/30/20 22:30 Temperature 36.9 C Temperature Source Oral Pulse Rate 95 H 95 H 76 Pulse Rate from SpO2 Sensor 77 Pulse Rhythm Regular Respiratory Rate 18 18 18 Respiratory Effort / Characteristics Non-Labored Respiratory Depth Normal Blood Pressure 130/84 107/70 Blood Pressure Mean 99 78 Pulse Oximetry 99 99 100 Oxygen Delivery Method Room Air Room Air Sepsis Recent Fever Within 48 Hours No Sepsis New/Unexplained Change in Mental Status No Sepsis Action Taken by Nursing No Action Required 01/30/20 23:00 Temperature Temperature Source Pulse Rate 80 Pulse Rate from SpO2 Sensor 80 Pulse Rhythm Respiratory Rate 16 Respiratory Effort / Characteristics Respiratory Depth Blood Pressure 119/78 Blood Pressure Mean 92 Pulse Oximetry 99 Oxygen Delivery Method Sepsis Recent Fever Within 48 Hours Sepsis New/Unexplained Change in Mental Status Sepsis Action Taken by Nursing VITAL SIGNS - Vital signs and nursing notes were reviewed. GENERAL - 19-year-old female appearing stated age who is in no acute distress. Communicates well with provider and answers questions appropriately. SKIN - Without rashes. HEAD - NC/AT. EYES - PERRL with EOMI bilaterally. Sclera anicteric. Palpebral conjunctiva pink and moist with no injection noted. EARS - No deformities of external structures noted on gross examination bilaterally. No pain elicited with palpation of the tragus bilaterally. External auditory canals without discharge or otorrhea. Tympanic membranes pearly ulrich without retraction or bulging. No fluid or purulent material visualized behind the TM. Handle of malleus, umbo, cone of light, pars tensa/flaccid all easily visualized. NOSE - Midline and without cyanosis. No epistaxis or purulent drainage noted. Septum midline without deviation or septal hematoma noted. MOUTH/OROPHARYNX - Without perioral cyanosis. Buccal mucosa pink and moist and without leukoplakia. Tongue midline with equal elevation of palate bilaterally. No tonsillar hypertrophy, erythema, or exudates noted. dentition noted. NECK - Neck with FROM. Supple to palpation. lymphadenopathy noted. No nuchal rigidity. LUNGS - Chest wall symmetric without accessory muscle use, intercostals retractions, or central cyanosis. Normal vesicular breath sounds CTA B/L. No wheezes, rales, or rhonchi appreciated. CARDIAC - RRR with S1/S2. No murmur, rubs, or gallops appreciated. ABDOMEN - Abdominal contour without pulsations or visible masses. BS normoactive all four quadrants. No tenderness, palpable masses, hepatosplenomegaly, or ascites noted. EXTREMITIES - No clubbing or peripheral cyanosis. No pretibial edema present. +3/5 radial, posterior tibial, and dorsalis pedis pulses palpated throughout. +5/5 strength noted in UE/LE bilaterally. NEUROLOGIC - Cranial nerves II through XII grossly intact. Sensory intact to light touch throughout. Patellar reflexes +2/4. PSYCH - A&Ox3 and cooperates fully with examiner. Pt is very pleasant and interacts well with examiner. Course Administered Medications Buspirone HCl (Buspirone 15 Mg Tab) 15 mg PO TID [facility] Stop: 03/01/20 08:59 Last Admin: 01/31/20 20:36 Dose: 15 mg Documented by: [id number] Admin: 01/31/20 13:44 Dose: 15 mg Documented by: [id number] Admin: 01/31/20 08:14 Dose: 15 mg Documented by: [id number] Duloxetine HCl (Duloxetine Hcl 60 Mg Cap) 60 mg PO DAILY [facility] Stop: 03/01/20 08:59 Last Admin: 01/31/20 08:13 Dose: 60 mg Documented by: [id number] Enoxaparin Sodium (Enoxaparin Inj 40 Mg/0.4 Ml Syr) 40 mg SQ Q24H [facility] Stop: 03/01/20 08:59 Last Admin: 01/31/20 08:12 Dose: 40 mg Documented by: [id number] Folic Acid (Folic Acid 1 Mg Tab) 2 mg PO DAILY [facility] Stop: 03/01/20 08:59 Last Admin: 01/31/20 08:13 Dose: 2 mg Documented by: [id number] Hydromorphone HCl (Hydromorphone Inj 0.5 Mg/0.5 Ml Syr) 0.5 mg IV Q3H PRN PRN Reason: Severe Pain Stop: 02/14/20 01:04 Last Admin: 01/31/20 23:36 Dose: 0.5 mg Documented by: [id number] Admin: 01/31/20 19:13 Dose: 0.5 mg Documented by: [id number] Admin: 01/31/20 13:44 Dose: 0.5 mg Documented by: [id number] Admin: 01/31/20 08:09 Dose: 0.5 mg Documented by: [id number] Admin: 01/31/20 01:58 Dose: 0.5 mg Documented by: [id number] Hydroxyurea (Hydroxyurea 500 Mg Cap) 500 mg PO TID [facility] Stop: 03/01/20 08:59 Last Admin: 01/31/20 20:36 Dose: 500 mg Documented by: [id number] Cosigned by: [id number] Admin: 01/31/20 13:44 Dose: 500 mg Documented by: [id number] Cosigned by: [id number] Admin: 01/31/20 08:14 Dose: 500 mg Documented by: [id number] Cosigned by: [id number] Potassium Chloride/Sodium Chloride (Normal Saline W/20 Meq Kcl) 20 meq in 1,000 mls @ 150 mls/hr IV .Q6H40M [facility] Stop: 03/01/20 01:04 Last Admin: 01/31/20 21:37 Dose: 150 mls/hr Documented by: [id number] Infusion: 01/31/20 21:23 Dose: 150 mls/hr Documented by: [id number] Admin: 01/31/20 14:42 Dose: 150 mls/hr Documented by: [id number] Infusion: 01/31/20 14:42 Dose: 150 mls/hr Documented by: [id number] Admin: 01/31/20 08:17 Dose: 150 mls/hr Documented by: [id number] Infusion: 01/31/20 08:17 Dose: 150 mls/hr Documented by: [id number] Admin: 01/31/20 01:58 Dose: 150 mls/hr Documented by: [id number] Oxycodone/Acetaminophen (Oxycodone/Acetaminophen 10-325 Tab) 1 tab PO Q6H PRN PRN Reason: Moderate Pain Stop: 02/14/20 01:04 Last Admin: 01/31/20 21:37 Dose: 1 tab Documented by: [id number] Admin: 01/31/20 12:34 Dose: 1 tab Documented by: [id number] Admin: 01/31/20 06:59 Dose: 1 tab Documented by: [id number] Admin: 01/31/20 01:25 Dose: 1 tab Documented by: [id number] Pantoprazole Sodium (Pantoprazole 40 Mg Tab) 40 mg PO DAILY [facility] Stop: 03/01/20 08:59 Last Admin: 01/31/20 08:13 Dose: 40 mg Documented by: [id number] Discontinued Medications Hydromorphone HCl (Hydromorphone Inj 1 Mg/Ml Syringe) 1 mg IV NOW STA Stop: 01/30/20 21:43 Last Admin: 01/30/20 22:26 Dose: 1 mg Documented by: [id number] Sodium Chloride (Nss 1000ml) 2,000 mls @ 999 mls/hr IV .Q2H1M ONE Stop: 01/30/20 23:44 Last Infusion: 01/31/20 00:13 Dose: 0 mls/hr Documented by: [id number] Admin: 01/30/20 22:26 Dose: 999 mls/hr Documented by: [id number] Acetaminophen (Ofirmev) 1,000 mg in 100 mls @ 400 mls/hr IV NOW STA Stop: 01/30/20 21:58 Last Infusion: 01/30/20 22:45 Dose: 0 mls/hr Documented by: [id number] Admin: 01/30/20 22:26 Dose: 400 mls/hr Documented by: [id number] Ondansetron HCl (Ondansetron Inj 2 Mg/Ml 2 Ml Vial) 4 mg IV NOW STA Stop: 01/30/20 21:45 Last Admin: 01/30/20 22:26 Dose: 4 mg Documented by: [id number] Medical Decision Making Differential Diagnosis Appendicitis, ovarian cyst, ovarian torsion, ectopic , TOA, PID, infections, diverticulitis, UTI, obstruction, mesenteric ischemia, aortic pathology, inflammatory bowel disease, renal colic, PUD, pancreatitis, biliary pathology, hernia, volvulus, constipation, as well as other pathologies. Medical Records Attestation: I reviewed the patient's medical records. Home Medications Current Medication List: was personally reviewed by me Laboratory Data Attestation: I reviewed the patient's lab results. Result diagrams: 01/30/20 21:57 01/30/20 21:57 Lab Results 01/30/20 01/30/20 01/30/20 Range/Units 21:57 21:57 21:57 WBC 5.91 (4.8-10.8) K/uL RBC 2.49 L (4.2-5.4) M/uL Hgb 9.3 L (12.0-16.0) g/dL Hct 25.4 L (37-47) % MCV 102.0 H (80-100) fL MCH 37.3 H (25-34) pg MCHC 36.6 H (32-36) g/dL RDW Std Deviation 85.4 H (36.4-46.3) fL RDW Coeff of Nando 23.4 H (11.5-14.5) % Plt Count 405 H (130-400) K/uL MPV 9.0 (7.4-10.4) fL Immature Gran % (Auto) 0.2 % Neut % (Auto) 59.2 % Lymph % (Auto) 32.1 % [place] % (Auto) 7.4 % Eos % (Auto) 0.8 % Baso % (Auto) 0.3 % Reticulocyte % (Auto) 10.2 H (0.5-2.0) % Neut # (Auto) 3.49 (1.4-6.5) K/uL Lymph # (Auto) 1.90 (1.2-3.4) K/uL [place] # (Auto) 0.44 (0.11-0.59) K/uL Eos # (Auto) 0.05 (0-0.5) K/uL Baso # (Auto) 0.02 (0-0.2) K/uL Reticulocyte # 0.25 H (0.02-0.10) 10^6/uL Immature Gran # (Auto) 0.01 (0.00-0.02) K/uL Absolute Nucleated RBC 0.42 H (0-0) K/uL Nucleated RBC % (auto) 7.2 % Polychromasia 1+ Anisocytosis Present Sickle Cells 1+ [place] Bodies 1+ Peripher Smr Path Cons PT 12.0 (9.0-12.0) Seconds INR 1.1 (0.9-1.1) APTT 23.4 (21.0-31.0) Seconds PTT Ratio 0.8 Sodium (136-145) mmol/L Potassium (3.5-5.1) mmol/L Chloride (98-107) mmol/L Carbon Dioxide (21-32) mmol/L Anion Gap (3-11) BUN (7-18) mg/dl Creatinine (0.6-1.2) mg/dl Est Cr Clr Drug Dosing ml/min Est GFR ( Amer) Est GFR (Non-Af Amer) BUN/Creatinine Ratio (10-20) Glucose (70-99) mg/dl Calcium (8.5-10.1) mg/dl Total Bilirubin (0.2-1) mg/dl AST (15-37) U/L ALT (12-78) U/L Alkaline Phosphatase (45-117) U/L Total Creatine Kinase (26-192) U/L CK-MB (CK-2) (0.5-3.6) ng/ml CK/CKMB % Calc Troponin I (0-0.045) ng/ml Total Protein (6.4-8.2) gm/dl Albumin (3.4-5.0) gm/dl Globulin (2.5-4.0) gm/dl Albumin/Globulin Ratio (0.9-2) Lipase (73-393) U/L HCG, Qual (Negative) SARS-CoV-2 Ag (Rapid) (Negative) Blood Type B Positive Antibody Screen NEGATIVE 01/30/20 01/30/20 01/30/20 Range/Units 21:57 21:58 23:17 WBC (4.8-10.8) K/uL RBC (4.2-5.4) M/uL Hgb (12.0-16.0) g/dL Hct (37-47) % MCV (80-100) fL MCH (25-34) pg MCHC (32-36) g/dL RDW Std Deviation (36.4-46.3) fL RDW Coeff of [place]ando (11.5-14.5) % Plt Count (130-400) K/uL MPV (7.4-10.4) fL Immature Gran % (Auto) % Neut % (Auto) % Lymph % (Auto) % [place] % (Auto) % Eos % (Auto) % Baso % (Auto) % Reticulocyte % (Auto) (0.5-2.0) % Neut # (Auto) (1.4-6.5) K/uL Lymph # (Auto) (1.2-3.4) K/uL [place] # (Auto) (0.11-0.59) K/uL Eos # (Auto) (0-0.5) K/uL Baso # (Auto) (0-0.2) K/uL Reticulocyte # (0.02-0.10) 10^6/uL Immature Gran # (Auto) (0.00-0.02) K/uL Absolute Nucleated RBC (0-0) K/uL Nucleated RBC % (auto) % Polychromasia Anisocytosis Sickle Cells [place] Bodies Peripher Smr Path Cons PT (9.0-12.0) Seconds INR (0.9-1.1) APTT (21.0-31.0) Seconds PTT Ratio Sodium 139 (136-145) mmol/L Potassium 3.3 L (3.5-5.1) mmol/L Chloride 107 (98-107) mmol/L Carbon Dioxide 25 (21-32) mmol/L Anion Gap 6.0 (3-11) BUN 6 L (7-18) mg/dl Creatinine 0.59 L (0.6-1.2) mg/dl Est Cr Clr Drug Dosing 146.7 ml/min Est GFR ( Amer) > 150.0 Est GFR (Non-Af Amer) 131.0 BUN/Creatinine Ratio 10.5 (10-20) Glucose 86 (70-99) mg/dl Calcium 9.4 (8.5-10.1) mg/dl Total Bilirubin 3.3 H (0.2-1) mg/dl AST 40 H (15-37) U/L ALT 26 (12-78) U/L Alkaline Phosphatase 86 (45-117) U/L Total Creatine Kinase 38 (26-192) U/L CK-MB (CK-2) < 1.0 (0.5-3.6) ng/ml CK/CKMB % Calc TNP Troponin I < 0.015 (0-0.045) ng/ml Total Protein 8.8 H (6.4-8.2) gm/dl Albumin 4.3 (3.4-5.0) gm/dl Globulin 4.5 H (2.5-4.0) gm/dl Albumin/Globulin Ratio 1.0 (0.9-2) Lipase 194 (73-393) U/L HCG, Qual Negative (Negative) SARS-CoV-2 Ag (Rapid) Negative (Negative) Blood Type Antibody Screen Imaging Data Radiologist's Impression: A 1 view of the chest was interpreted by me does not show any evidence of pneumonia congestion or pneumothorax. ECG Data Attestation: I personally reviewed and interpreted this ECG as follows: Indication: + chest pain Rate (beats per minute): 76 Rhythm: + normal sinus ECG Intervals/blocks: + Normal QT-c (423) ECG [place]: + Normal ECG ST segments: no ST depression and no ST elevation Comparison ECG Date: from (01/22/2020) Change: no significant change MDM Narrative Patient was seen and evaluated as above in room C7. Review was performed of nursing notes and vital signs. I did review pertinent previous visits and patient history. After obtaining a thorough history and physical examination the above work up was performed. This a 19-year-old female who is concerned she is in sickle cell crisis. I will note that the patient's hemoglobin is actually higher than it has been. She does have sickle cells on her differential. She was given a normal saline bolus x2 along with Dilaudid. The patient was placed on oxygen here in the emergency department. Repeat examination revealed improvement the patient's symptoms. The patient does not feel comfortable going home therefore I did discuss the jacky e with the hospitalist who did agree to admit the patient. While in the department, I personally reevaluated the patient several times and each time the patient was found to be resting comfortably. The patient was educated upon management, educated upon todays findings/results, educated upon importance of follow up from today's visit, educated upon symptoms in which to return, had questions answered prior to discharge, verbalized understanding, and was discharged home in good condition. An order was placed for continuous cardiac monitoring. The monitor shows a rate of 88 with Normal SInus rhythm. The patient was evaluated during a period of high volume and high acuity while the hospital was at overcapacity during the global COVID-19 pandemic, and that diagnosis was suspected/considered upon their initial presentation. Their evaluation, treatment and testing was consistent with current guidelines for patients who present with complaints or symptoms that may be related to COVID-1 9. Impression & Plan Sickle cell crisis Discharge Plan Visit Data Chief Complaint: Illness Stated Complaint: sickle cell crisis ED Provider: Daniel Bautista Discharge Problem: Sickle cell crisis Patient Disposition: Admitted As Inpatient Discharge Instructions Interventions: ED Discharge Assessment Last Done: 01/31/20 00:18
[2020-01-31] MEDS: oxyCODONE/ACETAMINOPHEN 10-325 TAB PO PRN ×4 (01:25→21:37)
[2020-01-31] MEDS: HYDROmorphone INJ 0.5 MG/0.5 ML SYR IV PRN ×5 (01:58→23:36)
[2020-01-31] MEDS: NSS + 20MEQ KCL 20 MEQ/1,000 ML BAG IV SCH ×4 (01:58→21:37)
[2020-01-31] MEDS: ENOXAPARIN INJ 40 MG/0.4 ML SYR SQ SCH (08:12)
--- NOTE | 2020-01-31 08:12 | XRay Report ---
XR chest 1V portable HISTORY: Atypical Chest Pain COMPARISON: Chest 12/20/2019. FINDINGS: No pneumothorax. No pleural effusions. The cardiac silhouette remains mildly enlarged. No f ocal lung consolidations to suggest pneumonia. No evidence for pulmonary edema. No rib fractures. IMPRESSION: Stable mild cardiomegaly. ACT 112: Negative or not required by law. Electronically signed by: Cortes Fletcher M.D. 01/31/2020 8:10 AM
[2020-01-31] MEDS: DULoxetine HCL 60 MG CAP PO SCH (08:13)
[2020-01-31] MEDS: PANTOprazole 40 MG TAB PO SCH (08:13)
[2020-01-31] MEDS: FOLIC ACID 1 MG TAB PO SCH (08:13)
[2020-01-31] MEDS: busPIRone 15 MG TAB PO SCH ×3 (08:14→20:36)
[2020-01-31] MEDS: HYDROXYUREA 500 MG CAP PO SCH ×3 (08:14→20:36)
--- NOTE | 2020-01-31 08:29 | Consultation Report ---
DATE OF CONSULTATION: 01/31/2020 REASON FOR CONSULTATION: Sickle cell crisis. HISTORY OF PRESENT ILLNESS: This very pleasant 19-year-old -[place] female who was admitted to [facility] on 01/30/2020 for sickle cell crisis. This patient ends up in our hospital at least every couple of months with sickle crisis. Unfortunately, the patient herself is not the best informant, barely speaks at bedside. The only thing I can elicit from her today was that she was having considerable pain. She is on hydroxyurea 500 mg p.o. t.i.d. She also supplements with folic acid. I have tried to get this patient in my office for outpatient followup to avoid these frequent hospitalizations, but she never shows for any of her scheduled appointments. Chest x-ray done on admission was completely negative. The patient reports no fever or chills. Hemoglobin on admission 9.3, hematocrit 25.4%. Her neutrophils and platelets are well within normal limits. The patient is being managed by the hospitalist service, currently receiving IV fluids and opioids. She is not on oxygen supplementation at present. PAST MEDICAL HISTORY: Again, significant for psychiatric issues, borderline personality disorder. Specifically, she has had a history of acute chest syndrome, pseudoseizures, sickle cell anemia. PAST SURGICAL HISTORY: Negative. MEDICATIONS: Include Hydroxyurea 500 mg p.o. t.i.d., Protonix 40 mg p.o. daily, duloxetine 30 mg p.o. daily, buspirone 15 mg p.o. t.i.d., tramadol 50 mg q. 12 hours p.r.n., folic acid 2 mg p.o. every day. FAMILY HISTORY: Significant for hypertension. 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 She is a nonsmoker. She does drink alcohol, particularly wine. REVIEW OF SYSTEMS: GENERAL: Negative for fevers, chills or sweats. She is not anorexic or losing weight. SKIN: No rashes or lesions. No history of dermatoses. HEENT: No current headache, lightheadedness or dizziness. No acute visual or hearing deficits. No sinus symptoms, sore throat or dysphagia. LYMPH: No history of lymphoproliferative disease. CARDIAC: No history of coronary artery disease. No current angina or palpitations. PULMONARY: She is not acutely short of breath, dyspneic or orthopneic. No cough or hemoptysis. GASTROINTESTINAL: Negative for abdominal pain, nausea, vomiting, diarrhea or constipation, hematochezia or melena stools. GENITOURINARY: No hematuria, dysuria, urinary incontinence. PSYCHIATRIC: By history. MUSCULOSKELETAL: Diffuse musculoskeletal pain, attributable to sickle crisis. NEUROLOGIC: Positive for pseudoseizures. HEMATOLOGIC: Positive for macrocytic anemia. PHYSICAL EXAMINATION: GENERAL: A 19-year-old -[place] female, barely conversant, in no acute distress. VITAL SIGNS: Temperature 36.9, pulse 88, respiratory rate 16, blood pressure 127/84. SKIN: Without rash or lesion. EXTREMITIES: No petechiae, ecchymosis. Turgor is good. HEENT: Head is atraumatic, normocephalic. Eyes: PERRLA, EOMI. Nares patent without rhinorrhea or discharge. Throat clear. Tongue midline. Mucous membranes are moist. NECK: Supple without JVD or thyromegaly. LYMPHATICS: No cervical or supraclavicular palpable nodes. HEART: Regular rate and rhythm. No clicks, rubs, murmurs or gallops. LUNGS: Clear to auscultation bilaterally. ABDOMEN: Soft, nontender, nondistended. EXTREMITIES: No clubbing, cyanosis or edema. NEUROLOGICALLY: She is awake, alert and oriented x3. Cranial nerves are intact. LABORATORY DATA: WBC count 5910, hemoglobin 9.3, platelet count 405,000. Reticulocyte 10%. She has got [place] bodies and sickle cells seen on smear. Sodium 139, potassium 3.3, chloride 107, carbon dioxide 25, creatinine 0.59, BUN 6. Chest x-ray negative. IMPRESSION: 1. Sickle cell anemia. 2. Sickle cell crisis. 3. Personality disorder. PLAN: This pleasant, somewhat noncompliant 19-year-old -[place] female who was once again admitted to [facility] with what appears to be a sickle crisis. The patient's main complaint is that of musculoskeletal pain. Her oxygenation was relatively good this morning and therefore does not require supplemental oxygen. Her hemoglobin presently 9.4 grams per deciliter. If she falls below 9, I would provide 1 unit of transfused blood. She is receiving copious IV fluids and opioids, which is within the standard of care. I have nothing further to add. She does not appear to be infected at this time and chest x-ray is totally clear. Thus, continue management as prescribed and discharge her when medically stable. I would be happy to see her as an outpatient, but again I think she has missed up to or 4 appointments at this point. She does have a freight claim investigator in her hometown that she generally sees on occasion after breaks who actually prescribed hydroxyurea. I have nothing further to add and will periodically visit with her during her hospital stay. I do not anticipate her remaining more than 1-2 days.
--- NOTE | 2020-01-31 13:38 | Hospitalist Progress Note ---
Date of Service January 31, 2020 Assessment & Plan (1) Sickle cell crisis: Donta Early is a 19-year-old female with a history of sickle cell disease, previous vaso-occlusive crises (last hospitalized and discharged on 01/27), borderline personality disorder, pseudoseizures, and depression who present to [facility] in an active, recurrent sickle-cell crisis. She is hemodynamically stable. Sickle Cell Disease / Vaso-occlusive Crisis - Hgb 9.3, reticulocytosis 10.2%, and the presence of 1+ sickle cells; BMP stable; hyperbilirubinemia notable at 3.3. BMP grossly WNL. - Continue pain management regimen: Percocet 10/325mg PO q6h PRN, tramadol 50mg PO q12 PRN, Dilaudid 0.5mg IV q3h; Benadryl 25mg IV q3h PRN for severe pain -- last admission, did respond to Percocet 10/325 q6h PO kaity and morphine 4mg PO q3h PRN, for reference - Continue NSS + KCl 20 mEq @ 150mL/hr - Continue hydroxyurea 500mg PO t.i.d. - Continue folic acid 2mg PO daily - Should continue to follow with hematology -- based on a review of the patient's chart, does appear to follow intermittently with Dr. Torres from [place]; given a history of recurrent hospitalizations d/t crises, should try and establish close outpatient f/u upon d/c - CBC, BMP qAM * F/u with Dr. Zamzam Bailey 02/08 @ 1430h via [facility] Pseudoseizures, Borderline Personality Disorder, Depression - Noted. - Continue buspirone 15mg PO t.i.d. - Cymbalta increased from 30 -> 60mg PO daily at admission - Confirm outpatient counselling follow up. GERD - Continue pantoprazole daily F/E/N: NSS with K @ 125cc/hr, full diet PPX: Lovenox 40mg SQ q24h Dispo: Med/surg -- will need hematology f/u's closely upon d/c Code: Full code (2) Generalized pain: (3) Pseudoseizures: (4) Borderline personality disorder: (5) Depression: (6) GERD (gastroesophageal reflux disease): Admission and Anticipated Discharge Date Admission Date: January 30, 2020 Supervising Physician Co-Signing Physician Notes Resident Physician Supervision Note: I independently interviewed and examined the patient and verified the amaro h istory and physical, reviewed labs and image studies, discussed the case with the resident Dr. Parker and agree with the findings and care plan. Subjective NAEO / since admission. Recently hospitalized for a sickle cell crisis, discharged only 3 days ago. Notes stress is a significant trigger for her, although this hasn't necessarily been worse for her than usual. Otherwise, not aware of other triggers. Notes that she continues to have diffuse pain this morning, perhaps around a 5-6/10. She has been utilizing the Percocet q6h PRN and Dilaudid 0.5mg PO q3h PRN. No chest pain or shortness of breath at present. Review of Systems Review of Systems: As per HPI Physical Exam Constitutional: Tired-appearing 19-year-old female who is lying back in her hospital bed scrolling through her phone at my arrival. She freely responds to questions without objective dyspnea; she is, however, brief in her answering to my questions. NAD. Respiratory: Good respiratory effort with symmetric expansion of the chest. CTAB w/o crackles or wheezes. Cardiovascular: Normal rate, regular rhythm. S1/S2 present w/o m/r/g. Gastrointestinal (Abdomen): NABS. There is mild tenderness to palpation diffusely across the abdomen. No guarding or rebound. Musculoskeletal: Calves were non-tender to palpation. Homen's negative bilaterally. Results & Data Results & Data ([facility]) Vital Signs (Past 12 Hours) Vital Signs Temp Pulse Resp BP Pulse Ox 01/31/20 07:36 36.8 C 73 18 118/70 95 Resident Activity Tracking Resident Involvement: Resident Care Provided Care Provided: Adult Hospital Medicine (1) Depression Active/Remission status: currently active Depression Type: major depressive disorder Major depression episode severity: severe Major depression recurrence: recurrent Psychotic features: without psychotic features Qualified Code(s): F33.2 - Major depressive disorder, recurrent severe without psychotic features
--- NOTE | 2020-01-31 19:40 | Electrocardiogram Report ---
Test Reason : Blood Pressure : / mmHG Vent. Rate : 076 BPM Atrial Rate : 076 BPM P-R Int : 190 ms QRS Dur : 078 ms QT Int : 376 ms P-R-T Axes : 055 065 041 degrees QTc Int : 423 ms Poor data quality, interpretation may be adversely affected Normal sinus rhythm Normal ECG When compared with ECG of 22-JAN-2020 23:24, No significant change was found Confirmed by Pierre Marquez ([id number]) on 01/31/2020 7:39:55 PM Referred By: REFERRED SELF Confirmed By:Pierre Marquez
[2020-02-01] MEDS: NSS + 20MEQ KCL 20 MEQ/1,000 ML BAG IV SCH ×3 (03:56→23:27)
[2020-02-01 06:29] LABS: Hematocrit (blood only) 21.2 % (37-47); Hemoglobin 7.5 g/dL (12.0-16.0); Mean Corpuscular Hemoglobin 36.6 pg (25-34); Mean Corpuscular Hgb Conc 35.4 g/dL (32-36); Mean Corpuscular Volume 103.4 fL (80-100); Nucleated RBC # (auto) 0.13 K/uL (0-0); Nucleated RBC % (auto) 2.7 %; Platelet Count 352 K/uL (130-400); RDW Coefficient of Variation 22.8 % (11.5-14.5); RDW Standard Deviation 85.7 fL (36.4-46.3); Red Blood Count 2.05 M/uL (4.2-5.4); White Blood Count 4.68 K/uL (4.8-10.8)
[2020-02-01 06:54] LABS: Alanine Aminotransferase 20 U/L (12-78); Albumin Level 3.3 gm/dl (3.4-5.0); Aspartate Aminotransferase 31 U/L (15-37); BUN Creatinine Ratio 7.1 (10-20); Blood Urea Nitrogen 3 mg/dl (7-18); Calcium 8.9 mg/dl (8.5-10.1); Carbon Dioxide 23 mmol/L (21-32); Chloride 112 mmol/L (98-107); Creatinine Clr Calc Pharmacy 184.1 ml/min; Est GFR (African American) > 150.0; Est GFR (Non-African American) 141.2; Glucose 82 mg/dl (70-99); Potassium 3.5 mmol/L (3.5-5.1); Sodium 142 mmol/L (136-145)
[2020-02-01 07:10] LABS: Alkaline Phosphatase 67 U/L (45-117); Bilirubin,Total 1.9 mg/dl (0.2-1); Globulin 3.5 gm/dl (2.5-4.0); Total Protein 6.8 gm/dl (6.4-8.2)
[2020-02-01] MEDS ORDERED: SODIUM CHLORIDE 0.9% 250 ML IV PRN ×3 (07:13→07:44)
[2020-02-01] MEDS ORDERED: diphenhydrAMINE Capsule 25 MG CAP PO ONE (07:13)
[2020-02-01 07:23] LABS: Anisocytosis Present; Basophils # (auto) 0.01 K/uL (0-0.2); Basophils % (auto) 0.2 %; Eosinophils % (auto) 2.1 %; Immature Granulocytes # (auto) 0.01 K/uL (0.00-0.02); Immature Granulocytes % (auto) 0.2 %; Lymphocytes # (auto) 2.74 K/uL (1.2-3.4); Lymphocytes % (auto) 58.5 %; Monocytes # (auto) 0.35 K/uL (0.11-0.59); Monocytes % (auto) 7.5 %; Neutrophils # (auto) 1.47 K/uL (1.4-6.5); Neutrophils % (auto) 31.5 %; Polychromasia 1+; Sickle Cells Occasional; Target Cells 1+
[2020-02-01] MEDS ORDERED: diphenhydrAMINE 50 MG/ML VIAL IV ONE (07:44)
[2020-02-01] MEDS: HYDROmorphone INJ 0.5 MG/0.5 ML SYR IV PRN ×4 (07:57→20:13)
[2020-02-01] MEDS ORDERED: diphenhydrAMINE Capsule 25 MG CAP PO SCH (08:00)
[2020-02-01] MEDS: PANTOprazole 40 MG TAB PO SCH (08:43)
[2020-02-01] MEDS: busPIRone 15 MG TAB PO SCH ×3 (08:43→21:02)
[2020-02-01] MEDS: DULoxetine HCL 60 MG CAP PO SCH (08:44)
[2020-02-01] MEDS: FOLIC ACID 1 MG TAB PO SCH (08:44)
[2020-02-01] MEDS: HYDROXYUREA 500 MG CAP PO SCH ×3 (08:44→21:02)
[2020-02-01] MEDS: ENOXAPARIN INJ 40 MG/0.4 ML SYR SQ SCH (08:44)
[2020-02-01] MEDS: oxyCODONE/ACETAMINOPHEN 10-325 TAB PO PRN ×2 (09:10→15:46)
--- NOTE | 2020-02-01 17:44 | Hospitalist Progress Note ---
Date of Service February 01, 2020 Assessment & Plan (1) Sickle cell crisis: Donta Early is a 19-year-old female with a history of sickle cell disease, previous vaso-occlusive crises (last hospitalized and discharged on 01/27), borderline personality disorder, pseudoseizures, and depression who present to [facility] in an active, recurrent sickle-cell crisis. She is hemodynamically stable. Sickle Cell Anemia / Vaso-occlusive Crisis - Hgb fell to 7.5 this AM from 9.3 yesterday ; BMP continues to be WNL. She is hemodynamically stable. - Patient denies any anemic signs or symptoms at the present - Given Hgb < 9 in patient with SCD, proceed with transfusion of 2U pRBC after cross/match complete. Blood bank contacted, aware, and following. - Continue NSS + KCl 20 mEq @ 150mL/hr - Continue hydroxyurea 500mg PO t.i.d. - Continue folic acid 2mg PO daily - Continue pain management regimen, which seems to be adequate at the current time: Percocet 10/325mg PO q6h PRN, tramadol 50mg PO q12 PRN, Dilaudid 0.5mg IV q3h; Benadryl 25mg IV q3h PRN for severe pain -- last admission, did respond to Percocet 10/325 q6h PO kaity and morphine 4mg PO q3h PRN, for reference - Should continue to follow with hematology -- based on a review of the patient's chart, does appear to follow intermittently with Dr. Torres from [place]; given a history of recurrent hospitalizations d/t crises, should try and establish close outpatient f/u upon d/c - CBC, BMP qAM - Transfuse if Hgb < 9 or if symptomatic * F/u with Dr. Zamzam Bailey 02/08 @ 1430h via [facility] Depression - Extended conversation held at bedside this afternoon discussing goals moving forward -- patient feels that her depression has worsened lately because of recurrent, recent hospitalizations and the burden of managing a complex chronic disease like SCD - Denies SI/HI at present - Continue to follow mood throughout hospital stay; will also need close outpatient follow-up. She has been working with Dr. Bailey on this - Continue buspirone 15mg PO t.i.d. - Cymbalta increased from 30 -> 60mg PO daily at admission. Continue. Pseudoseizures, Borderline Personality Disorder, - Noted, therapy as above GERD - Continue pantoprazole daily F/E/N: NSS with K @ 125cc/hr, full diet PPX: Lovenox 40mg SQ q24h Dispo: Med/surg -- wishes to establish care with hematology upon d/c Code: Full code (2) Generalized pain: (3) Pseudoseizures: (4) Borderline personality disorder: (5) Depression: (6) GERD (gastroesophageal reflux disease): Admission and Anticipated Discharge Date Admission Date: January 30, 2020 Supervising Physician Co-Signing Physician Notes Resident Physician Supervision Note: I independently interviewed and examined the patient and verified the amaro history and physical, reviewed labs and image studies, discussed the case with the resident Dr. Parker and agree with the findings and care plan. Subjective NAEO. Feels OK this morning, pain initially around a 6/10 - upon touching base with her approximately an hour later, did trend down towards 4-5 after getting her oral analgesics. She denies any lightheadedness, dizziness, shortness of breath. No chest pain or pressure. Says that her pain is worst throughout her back this AM, but is generally present everywhere. OK appetite. No other concerns. Upon revisiting her this afternoon, she did add that managing a chronic disease - especially associated with recurrent hospitalizations - has been very stressful for her. She also just learned today she did poorly in one of her classes d/t the frequent hospitalizations. She notes feeling depressed more days than not. She has been on Buspar and Cymbalta for some time, which she reports help, but certainly can't take away the difficulties presented by this illness. As a goal, she wants to get her disease under control -- pain control and less admissions. Open to seeing someone locally to help manage this. She denied SI/HI during our conversation. Review of Systems Review of Systems: as per HPI Physical Exam Constitutional: Tired-appearing 19-year-old female who was sleeping upon my arrival. She is somnolent initially throughout our conversation, but wakes up throughout and during the day. Alert and oriented fully. NAD. Respiratory: Good respiratory effort with symmetric expansion of the chest. Lungs CTAB w/o crackles or wheezes. Cardiovascular: Normal rate, regular rhythm. S1 and S2 present without m/r/g. Gastrointestinal (Abdomen): NABS. Abdomen is soft and nondistended, but mildly TTP diffusely. Youngblood's negative. Psychiatric: A+Ox3, euthymic affect Results & Data Results & Data ([facility]) Vital Signs (Past 12 Hours) Vital Signs Temp Pulse Pulse Resp BP BP Pulse Ox 02/01/20 17:11 36.7 C 67 18 115/73 98 02/01/20 07:25 36.8 C 70 109/69 97 Resident Activity Tracking Resident Involvement: Resident Care Provided Care Provided: Adult Hospital Medicine (1) Depression Active/Remission status: currently active Depression Type: major depressive disorder Major depression episode severity: severe Major depression recurrence: recurrent Psychotic features: without psychotic features Qualified Code(s): F33.2 - Major depressive disorder, recurrent severe without psychotic features
[2020-02-02] MEDS: HYDROmorphone INJ 0.5 MG/0.5 ML SYR IV PRN ×4 (00:52→14:05)
[2020-02-02] MEDS: NSS + 20MEQ KCL 20 MEQ/1,000 ML BAG IV SCH ×4 (00:57→20:08)
[2020-02-02 07:27] LABS: Hematocrit (blood only) 28.3 % (37-47); Hemoglobin 10.1 g/dL (12.0-16.0); Mean Corpuscular Hemoglobin 35.1 pg (25-34); Mean Corpuscular Hgb Conc 35.7 g/dL (32-36); Mean Corpuscular Volume 98.3 fL (80-100); Mean Platelet Volume 8.8 fL (7.4-10.4); Nucleated RBC # (auto) 0.08 K/uL (0-0); Nucleated RBC % (auto) 1.8 %; Platelet Count 315 K/uL (130-400); RDW Coefficient of Variation 22.1 % (11.5-14.5); RDW Standard Deviation 76.6 fL (36.4-46.3); Red Blood Count 2.88 M/uL (4.2-5.4); White Blood Count 4.69 K/uL (4.8-10.8)
[2020-02-02 07:55] LABS: BUN Creatinine Ratio 12.6 (10-20); Blood Urea Nitrogen 6 mg/dl (7-18); Calcium 8.6 mg/dl (8.5-10.1); Carbon Dioxide 25 mmol/L (21-32); Chloride 109 mmol/L (98-107); Creatinine Clr Calc Pharmacy 176.6 ml/min; Est GFR (African American) > 150.0; Est GFR (Non-African American) 139.3; Glucose 84 mg/dl (70-99); Potassium 3.6 mmol/L (3.5-5.1); Sodium 141 mmol/L (136-145)
[2020-02-02 07:58] LABS: Anisocytosis Present; Basophils # (auto) 0.03 K/uL (0-0.2); Basophils % (auto) 0.6 %; Eosinophils # (auto) 0.12 K/uL (0-0.5); Eosinophils % (auto) 2.6 %; Howell-Jolly Bodies 1+; Immature Granulocytes # (auto) 0.01 K/uL (0.00-0.02); Immature Granulocytes % (auto) 0.2 %; Lymphocytes # (auto) 2.59 K/uL (1.2-3.4); Lymphocytes % (auto) 55.2 %; Monocytes % (auto) 6.4 %; Neutrophils # (auto) 1.64 K/uL (1.4-6.5); Poikilocytosis Present; Polychromasia 1+; Sickle Cells 1+; Target Cells 1+
[2020-02-02] MEDS: HYDROXYUREA 500 MG CAP PO SCH ×3 (10:18→20:13)
[2020-02-02] MEDS: FOLIC ACID 1 MG TAB PO SCH (10:18)
[2020-02-02] MEDS: PANTOprazole 40 MG TAB PO SCH (10:18)
[2020-02-02] MEDS: busPIRone 15 MG TAB PO SCH ×3 (10:18→20:14)
[2020-02-02] MEDS: DULoxetine HCL 60 MG CAP PO SCH (10:18)
[2020-02-02] MEDS: ENOXAPARIN INJ 40 MG/0.4 ML SYR SQ SCH ×2 (10:18→10:36)
[2020-02-02] MEDS: oxyCODONE/ACETAMINOPHEN 10-325 TAB PO PRN (17:01)
--- NOTE | 2020-02-02 17:05 | Hospitalist Progress Note ---
Date of Service February 02, 2020 Assessment & Plan (1) Sickle cell crisis: Donta Early is a 19-year-old female with a history of sickle cell disease, previous vaso-occlusive crises (last hospitalized and discharged on 01/27), borderline personality disorder, pseudoseizures, and depression who present to [facility] in an active, recurrent sickle-cell crisis. She is hemodynamically stable. Sickle Cell Anemia / Vaso-occlusive Crisis - Continues to be hemodynamically stable throughout her stay -- temperature, BPs, HR, SpO2 WNL s/p transfusion - Hgb increased today to 10.1 from 7.5 yesterday, s/p 2U pRBCs - Patient denies any anemic signs or symptoms at the present - Continue NSS + KCl 20 mEq @ 150mL/hr - Continue hydroxyurea 500mg PO t.i.d. - Continue folic acid 2mg PO daily - Continue pain management regimen, which seems to be adequate at the current time: Percocet 10/325mg PO q6h PRN, tramadol 50mg PO q12 PRN, Dilaudid 0.5mg IV q3h; Benadryl 25mg IV q3h PRN for severe pain -- last admission, did respond to Percocet 10/325 q6h PO kaity and morphine 4mg PO q3h PRN, for reference - Should anticipate transition to PO pain management as tolerated and patient recovers from this sickle cell crisis - Should continue to follow with hematology -- based on a review of the patient's chart, does appear to follow intermittently with Dr. Torres from [place]; given a history of recurrent hospitalizations d/t crises, should try and establish close outpatient f/u upon d/c - CBC, BMP qAM - Transfuse if Hgb < 9 or if symptomatic Depression - Extended conversation held at bedside this afternoon discussing goals moving forward -- patient feels that her depression has worsened lately because of recurrent, recent hospitalizations and the burden of managing a complex chronic disease like SCD - Denies SI/HI at present - Continue to follow mood throughout hospital stay; will also need close outpatient follow-up. She has been working with Dr. Bailey on this - Continue buspirone 15mg PO t.i.d. - Cymbalta increased from 30 -> 60mg PO daily at admission. Continue. Pseudoseizures, Borderline Personality Disorder - Noted, therapy as above GERD - Continue pantoprazole daily F/E/N: NSS with K @ 125cc/hr, full diet -- can consider discontinuation if good PO intake, continued good progress PPX: Lovenox 40mg SQ q24h Dispo: Med/surg -- wishes to establish care with hematology upon d/c. Nurse navigator consulted. * F/u with Dr. Zamzam Bailey 02/08 @ 1430h via [facility] Code: Full code (2) Generalized pain: (3) Pseudoseizures: (4) Borderline personality disorder: (5) Depression: (6) GERD (gastroesophageal reflux disease): Admission and Anticipated Discharge Date Admission Date: January 30, 2020 Supervising Physician Co-Signing Physician Notes Resident Physician Supervision Note: I independently interviewed and examined the patient and verified the amaro history and physical, reviewed labs and image studies, discussed the case with the resident Dr. Parker and agree with the findings and care plan. Subjective Transfusions went well last night. No fevers, chills, shortness of breath. James reports that pain is still 6/10 without pain meds, and 5/10 with. No acute changes this morning. No chest pain. Appetite is OK. No other concerns. Review of Systems Review of Systems: as per HPI Physical Exam Constitutional: WD/WN, vitals as above Eyes: + anicteric sclerae Respiratory: normal respiratory effort, lungs clear to auscultation Cardiovascular: RRR, no murmur, no edema Gastrointestinal (Abdomen): Unchanged from yesterday. Abdomen soft and nondistended, but diffusely and mildly TTP in all quadrants. Results & Data Results & Data ([facility]) Vital Signs (Past 12 Hours) Vital Signs Temp Pulse Resp BP Pulse Ox 02/02/20 15:07 37.0 C 77 18 113/68 96 02/02/20 07:17 36.8 C 67 16 97/61 L 99 Resident Activity Tracking Resident Involvement: Resident Care Provided Care Provided: Adult Hospital Medicine (1) Depression Active/Remission status: currently active Depression Type: major depressive disorder Major depression episode severity: severe Major depression recurrence: recurrent Psychotic features: without psychotic features Qualified Code(s): F33.2 - Major depressive disorder, recurrent severe without psychotic features
[2020-02-02] MEDS: traMADol HCL 50 MG TABLET PO PRN (20:11)
[2020-02-03] MEDS: oxyCODONE/ACETAMINOPHEN 10-325 TAB PO PRN ×3 (02:10→17:06)
[2020-02-03] MEDS: NSS + 20MEQ KCL 20 MEQ/1,000 ML BAG IV SCH ×3 (02:47→16:06)
[2020-02-03 08:50] LABS: Hematocrit (blood only) 29.8 % (37-47); Hemoglobin 10.4 g/dL (12.0-16.0); Mean Corpuscular Hgb Conc 34.9 g/dL (32-36); Mean Corpuscular Volume 100.3 fL (80-100); Mean Platelet Volume 9.3 fL (7.4-10.4); Nucleated RBC # (auto) 0.07 K/uL (0-0); Nucleated RBC % (auto) 1.7 %; Platelet Count 309 K/uL (130-400); RDW Coefficient of Variation 22.3 % (11.5-14.5); RDW Standard Deviation 78.6 fL (36.4-46.3); Red Blood Count 2.97 M/uL (4.2-5.4); White Blood Count 4.44 K/uL (4.8-10.8)
[2020-02-03 09:13] LABS: Anisocytosis Present; Basophils # (auto) 0.02 K/uL (0-0.2); Basophils % (auto) 0.5 %; Eosinophils # (auto) 0.08 K/uL (0-0.5); Eosinophils % (auto) 1.8 %; Lymphocytes # (auto) 2.29 K/uL (1.2-3.4); Lymphocytes % (auto) 51.6 %; Monocytes # (auto) 0.33 K/uL (0.11-0.59); Monocytes % (auto) 7.4 %; Neutrophils # (auto) 1.72 K/uL (1.4-6.5); Neutrophils % (auto) 38.7 %; Poikilocytosis Present; Spherocytes 1+
[2020-02-03 09:24] LABS: BUN Creatinine Ratio 12.9 (10-20); Blood Urea Nitrogen 6 mg/dl (7-18); Calcium 9.1 mg/dl (8.5-10.1); Carbon Dioxide 24 mmol/L (21-32); Chloride 111 mmol/L (98-107); Creatinine Clr Calc Pharmacy 173.1 ml/min; Est GFR (African American) > 150.0; Est GFR (Non-African American) 138.4; Glucose 83 mg/dl (70-99); Potassium 3.7 mmol/L (3.5-5.1); Sodium 141 mmol/L (136-145)
[2020-02-03] MEDS: busPIRone 15 MG TAB PO SCH ×3 (09:33→20:03)
[2020-02-03] MEDS: HYDROXYUREA 500 MG CAP PO SCH ×3 (09:33→20:03)
[2020-02-03] MEDS: FOLIC ACID 1 MG TAB PO SCH (09:33)
[2020-02-03] MEDS: PANTOprazole 40 MG TAB PO SCH (09:34)
[2020-02-03] MEDS: DULoxetine HCL 60 MG CAP PO SCH (09:34)
[2020-02-03] MEDS: ENOXAPARIN INJ 40 MG/0.4 ML SYR SQ SCH (09:34)
[2020-02-03] MEDS: HYDROmorphone INJ 0.5 MG/0.5 ML SYR IV PRN ×3 (12:19→21:32)
--- NOTE | 2020-02-03 13:06 | Hospitalist Progress Note ---
Date of Service February 03, 2020 Assessment & Plan (1) Sickle cell crisis: Donta Early is a 19-year-old female with a history of sickle cell disease, previous vaso-occlusive crises (last hospitalized and discharged on 01/27), borderline personality disorder, pseudoseizures, and depression who present to [facility] in an active, recurrent sickle-cell crisis. She is hemodynamically stable and continues to improve day-by-day. Sickle Cell Anemia / Vaso-occlusive Crisis - Continues to be hemodynamically stable throughout her stay -- temperature, BPs, HR, SpO2 WNL s/p transfusion - Hgb continued to maintain above 10 s/p 2U pRBC in the evening of 01/31 - Patient denies any anemic signs or symptoms at the present - Continue NSS + KCl 20 mEq @ 150mL/hr - Continue hydroxyurea 500mg PO t.i.d. - Continue folic acid 2mg PO daily - Continue pain management regimen, which seems to be adequate at the current time: Percocet 10/325mg PO q6h PRN, tramadol 50mg PO q12 PRN, Dilaudid 0.25mg IV q3h; Benadryl 25mg IV q3h PRN for severe pain - Should anticipate transition to PO pain management as tolerated and patient recovers from this sickle cell crisis; significant time spent discussing this with patient on 02/01 - Patient amenable to attempt oral pain medications before IV in lieu of creating regimen appropriate for outpatient setting. Has responded well to Dilaudid 0.25mg IV (previously required 0.5mg t.i.d.) - Pain goal prior to d/c <5, in alliance with patient's readiness - 02/02: Successfully ambulated around floor x 2 with intermittent breaks to catch breath - Continue to follow with hematology in outpatient setting: plan to touch base with nurse navigator and patient on 02/03 to explore options - CBC, BMP qAM - Transfuse if Hgb < 9 or if symptomatic * F/u with Dr. Zamzam Bailey, PCP, 02/08 @ 1430h via [facility] Depression - Patient feels that her depression has worsened lately because of recurrent, recent hospitalizations and the burden of managing a complex chronic disease like SCD - Continue to follow mood throughout hospital stay; will also need close outpatient follow-up. She has been working with Dr. Bailey, PCP, with this. - Continue buspirone 15mg PO t.i.d. - Continue duloxetine 60mg PO once daily Pseudoseizures, Borderline Personality Disorder - Noted, therapy as above GERD - Continue pantoprazole daily F/E/N: NSS with K @ 125cc/hr, full diet PPX: Lovenox 40mg SQ q24h Dispo: Med/surg Code: Full code Admission and Anticipated Discharge Date Admission Date: January 30, 2020 Supervising Physician Co-Signing Physician Notes Resident Physician Supervision Note: I independently interviewed and examined the patient and verified the amaro history and physical, reviewed labs and image studies, discussed the case with the resident Dr. Parker and agree with the findings and care plan. Subjective NAEO. Patient did not receive any IV pain medications overnight. This AM at the bedside, reported pain was increased to 7/10; because of this, was unable to get much sleep. No shortness of breath. No chest pain or palpitations. No lightheadedness/dizziness. Visited again in the afternoon. Feels OK overall. Pain about a 6/10. She did receive some Dilaudid 0.25mg IV x 1 during the day to aid with pain, which she reports helps. Does report feeling down and wanting to go home. Eager to walk around. We did take 2 laps around the floor together as she felt she was ready. Intermittently reported shortness of breath, requiring pauses. Pain was intensified with walking, most notable in her back and left leg. No lightheadedn ess/dizzy throughout. Tired by end of walk. Review of Systems Review of Systems: as per HPI Physical Exam Constitutional: Tired-appearing 19-year-old female who is easily arousable and freely responsive to my questioning. She is engaged in our conversation. NAD. Respiratory: Good respiratory effort with symmetric expansion of chest. Lungs CTAB w/o crackles or wheezes. Cardiovascular: RRR, no murmur, no edema Gastrointestinal (Abdomen): NABS. Abdomen is soft and nondistended, but continues to be mildly and diffusely TTP. Unchanged from yesterday for me or to patient on their report. Results & Data Results & Data ([facility]) Vital Signs (Past 12 Hours) Vital Signs Temp Pulse Resp BP Pulse Ox 02/03/20 06:56 36.6 C 67 18 120/71 97 Resident Activity Tracking Resident Involvement: Resident Care Provided Care Provided: Adult Hospital Medicine
[2020-02-03] MEDS: traMADol HCL 50 MG TABLET PO PRN (16:06)
[2020-02-04] MEDS: oxyCODONE/ACETAMINOPHEN 10-325 TAB PO PRN ×3 (02:00→20:07)
[2020-02-04] MEDS: diphenhydrAMINE 50 MG/ML VIAL IV PRN ×2 (04:28→21:59)
[2020-02-04 08:11] LABS: Hematocrit (blood only) 29.5 % (37-47); Hemoglobin 10.4 g/dL (12.0-16.0); Mean Corpuscular Hemoglobin 35.1 pg (25-34); Mean Corpuscular Hgb Conc 35.3 g/dL (32-36); Mean Corpuscular Volume 99.7 fL (80-100); Mean Platelet Volume 9.8 fL (7.4-10.4); Nucleated RBC % (auto) 2.2 %; Platelet Count 314 K/uL (130-400); RDW Coefficient of Variation 21.5 % (11.5-14.5); RDW Standard Deviation 76.6 fL (36.4-46.3); Red Blood Count 2.96 M/uL (4.2-5.4); White Blood Count 4.68 K/uL (4.8-10.8)
[2020-02-04 08:35] LABS: Anisocytosis Present; Basophils # (auto) 0.01 K/uL (0-0.2); Basophils % (auto) 0.2 %; Eosinophils # (auto) 0.13 K/uL (0-0.5); Eosinophils % (auto) 2.8 %; Howell-Jolly Bodies 1+; Lymphocytes # (auto) 2.39 K/uL (1.2-3.4); Lymphocytes % (auto) 51.1 %; Monocytes # (auto) 0.31 K/uL (0.11-0.59); Monocytes % (auto) 6.6 %; Neutrophils # (auto) 1.84 K/uL (1.4-6.5); Neutrophils % (auto) 39.3 %; Pappenheimer Bodies 1+; Poikilocytosis Present; Polychromasia 1+; Target Cells 2+
[2020-02-04 08:42] LABS: BUN Creatinine Ratio 16.1 (10-20); Blood Urea Nitrogen 8 mg/dl (7-18); Calcium 9.1 mg/dl (8.5-10.1); Carbon Dioxide 25 mmol/L (21-32); Chloride 107 mmol/L (98-107); Creatinine Clr Calc Pharmacy 169.7 ml/min; Est GFR (African American) > 150.0; Est GFR (Non-African American) 137.5; Glucose 81 mg/dl (70-99); Potassium 3.6 mmol/L (3.5-5.1); Sodium 139 mmol/L (136-145)
[2020-02-04] MEDS: FOLIC ACID 1 MG TAB PO SCH (09:43)
[2020-02-04] MEDS: ENOXAPARIN INJ 40 MG/0.4 ML SYR SQ SCH (09:43)
[2020-02-04] MEDS: busPIRone 15 MG TAB PO SCH ×3 (09:44→20:08)
[2020-02-04] MEDS: DULoxetine HCL 60 MG CAP PO SCH (09:44)
[2020-02-04] MEDS: HYDROXYUREA 500 MG CAP PO SCH ×3 (09:44→20:08)
[2020-02-04] MEDS: PANTOprazole 40 MG TAB PO SCH (09:44)
--- NOTE | 2020-02-04 13:57 | Hospitalist Progress Note ---
Date of Service February 04, 2020 Assessment & Plan (1) Sickle cell crisis: Donta Early is a 19-year-old female with a history of sickle cell disease, previous vaso-occlusive crises (last hospitalized and discharged on 01/27), borderline personality disorder, pseudoseizures, and depression who present to [facility] in an active, recurrent sickle-cell crisis. She is hemodynamically stable and continues to improve day-by-day. Sickle Cell Anemia / Vaso-occlusive Crisis - Continues to be hemodynamically stable throughout her stay -- temperature, BPs, HR, SpO2 WNL s/p transfusion - Hgb continued to maintain above 10 s/p 2U pRBC in the evening of 01/31 - Continue hydroxyurea 500mg PO t.i.d. - Continue folic acid 2mg PO daily - Continue pain management regimen, which seems to be adequate at the current time: 1st line: [ Percocet 10/325mg PO q6h PRN, tramadol 50mg PO q12 PRN ] >> Breakthrough: [ Dilaudid 0.25mg IV q3h >> Benadryl 25mg IV q3h PRN ] - Great improvement with pain control from admission with only intermittent requirement of IV meds, usually at night - Pain goal prior to d/c <5, in alliance with patient's readiness -- normal home regimen appears to be Percocet + Tramadol + Ibuprofen PRN (per patient, closely works with PCP to manage these) - Continue OOB/ambulation as tolerated while here to promote recovery - Will set up local outpt hematology on discharge - CBC qAM - Transfuse if Hgb < 9 or if symptomatic * F/u with Dr. Zamzam Bailey, PCP, 02/08 @ 1430h via [facility] Depression - Patient feels that her depression has worsened lately because of recurrent, recent hospitalizations and the burden of managing a complex chronic disease like SCD - Continue to follow mood throughout hospital stay; Denies any SI - Continue buspirone 15mg PO t.i.d. - Continue duloxetine 60mg PO once daily Pseudoseizures, Borderline Personality Disorder - Noted, therapy as above GERD - Continue pantoprazole daily F/E/N: Regular diet. IVF discontinued. PPX: Lovenox 40mg SQ q24h Dispo: Med/surg -- anticipate d/c tomorrow Code: Full code Admission and Anticipated Discharge Date Admission Date: January 30, 2020 Supervising Physician Co-Signing Physician Notes Resident Physician Supervision Note: I independently interviewed and examined the patient and verified the amaro history and physical, reviewed labs and image studies, discussed the case with the resident Dr. Parker and agree with the findings and care plan. Subjective NAEO. Patient expresses she's eager to go home, but is very concerned that her pain is going to come back. On my visit this morning, she rated pain 5-6/10; did require her regular pain medications overnight, as well as Dilaudid x 1. Denies shortness of breath, chest pain, nausea, or vomiting. On repeat visit this afternoon, patient was still sleeping. Upon waking, she did report pain was 4/10; she asked if she could go home. As she sat up and woke up, did report pain spiked to 6/10 and feels like she need more time to get pain under control. Continues to deny shortness of breath / chest pain. When asked, said she would be able to ambulate around the floor today. Review of Systems Review of Systems: as per HPI Physical Exam Constitutional: Well-appearing 19 year old female who was sleeping upon my arrival at both visits. Upon waking, she is somewhat interactive and mildly engaged in our conversation, infrequently making eye contact. NAD. Respiratory: Good respiratory effort with symmetric expansion of the chest. Lungs CTAB without crackles or wheezes. Cardiovascular: NRRR. S1 and S2 present without m/r/g. Gastrointestinal (Abdomen): NABS. Abdomen continues to be soft and non- distended, with mild but diffuse TTP in all quadrants. Unchanged since yesterday's exam. Psychiatric: Orientation: alert and oriented x 3 Eye Contact: + fair eye contact Speech: normal rate/rhythm/volume of speech Affect: + flat affect Mood: + anxious mood Results & Data Results & Data ([facility]) Vital Signs (Past 12 Hours) Vital Signs Temp Pulse Resp BP Pulse Ox 02/04/20 08:45 36.5 C 56 L 16 95/54 L 98 Resident Activity Tracking Resident Involvement: Resident Care Provided Care Provided: Adult [facility]
[2020-02-04] MEDS: HYDROmorphone INJ 0.5 MG/0.5 ML SYR IV PRN ×2 (14:17→17:27)
[2020-02-04] MEDS: traMADol HCL 50 MG TABLET PO PRN (18:38)
[2020-02-05 08:55] LABS: Basophils # (auto) 0.02 K/uL (0-0.2); Basophils % (auto) 0.3 %; Eosinophils # (auto) 0.09 K/uL (0-0.5); Eosinophils % (auto) 1.4 %; Hematocrit (blood only) 32.8 % (37-47); Hemoglobin 11.2 g/dL (12.0-16.0); Immature Granulocytes # (auto) 0.01 K/uL (0.00-0.02); Immature Granulocytes % (auto) 0.2 %; Mean Corpuscular Hemoglobin 34.4 pg (25-34); Mean Corpuscular Hgb Conc 34.1 g/dL (32-36); Mean Corpuscular Volume 100.6 fL (80-100); Mean Platelet Volume 9.7 fL (7.4-10.4); Neutrophils # (auto) 4.14 K/uL (1.4-6.5); Neutrophils % (auto) 62.1 %; Nucleated RBC # (auto) 0.11 K/uL (0-0); Nucleated RBC % (auto) 1.7 %; Platelet Count 292 K/uL (130-400); RDW Coefficient of Variation 21.5 % (11.5-14.5); RDW Standard Deviation 77.2 fL (36.4-46.3); Red Blood Count 3.26 M/uL (4.2-5.4); White Blood Count 6.66 K/uL (4.8-10.8)
[2020-02-05] MEDS: busPIRone 15 MG TAB PO SCH ×3 (09:14→22:13)
[2020-02-05] MEDS: PANTOprazole 40 MG TAB PO SCH (09:14)
[2020-02-05] MEDS: DULoxetine HCL 60 MG CAP PO SCH (09:14)
[2020-02-05] MEDS: HYDROXYUREA 500 MG CAP PO SCH ×3 (09:14→22:13)
[2020-02-05] MEDS: FOLIC ACID 1 MG TAB PO SCH (09:15)
[2020-02-05] MEDS: ENOXAPARIN INJ 40 MG/0.4 ML SYR SQ SCH (09:15)
[2020-02-05] MEDS: oxyCODONE/ACETAMINOPHEN 10-325 TAB PO PRN (09:23)
[2020-02-05 09:25] LABS: Macrocytosis Present; Ovalocytes 1+; Polychromasia 1+; Target Cells 1+
[2020-02-05] MEDS: HYDROmorphone INJ 0.5 MG/0.5 ML SYR IV PRN ×3 (10:55→19:39)
[2020-02-05] MEDS: traMADol HCL 50 MG TABLET PO PRN (13:05)
--- NOTE | 2020-02-05 14:17 | Hospitalist Progress Note ---
Date of Service February 05, 2020 Assessment & Plan (1) Sickle cell crisis: Donta ("James") Sharath is a 19-year-old female with a history of sickle cell disease, previous vaso-occlusive crises (last hospitalized and discharged on 01/27), borderline personality disorder, pseudoseizures, and depression who present to [facility] in an active, recurrent sickle-cell crisis. She is hemodynamically stable and continues to improve day-by-day. Sickle Cell Anemia / Vaso-occlusive Crisis - Continues to be hemodynamically stable throughout her stay -- temperature, BPs, HR, SpO2 WNL s/p transfusion - Hgb continued to maintain above 10-11 s/p 2U pRBC in the evening of 01/31 - Patient denies any anemic signs or symptoms at the present - Continue hydroxyurea 500mg PO t.i.d. 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 Continue to promote importance of establishing care. Will see Dr. Bailey, PCP, next week in interim. - Benadryl 25mg IV PRN can be used to aid sleep at night - Consider 1/2 NSS for additional hydration / pain control as needed - CBC qAM - Transfuse if Hgb < 9 or if symptomatic * F/u with Dr. Zamzam Bailey, PCP, 02/08 @ 1430h via [facility] Depression - Patient feels that her depression has worsened lately because of recurrent, recent hospitalizations and the burden of managing a complex chronic disease like SCD - Regular follow-ups to discuss mood and support while in the hospital being done day-by-day - Continue to follow mood throughout hospital stay; will also need close outpatient follow-up. She has been working with Dr. Bailey, PCP, with this. - Continue buspirone 15mg PO t.i.d. - Continue duloxetine 60mg PO once daily Pseudoseizures, Borderline Personality Disorder - Noted, therapy as above GERD - Continue pantoprazole daily F/E/N: Regular diet PPX: Lovenox 40mg SQ q24h Dispo: Med/surg -- d/c when pain at acceptable level (goal < 5) Code: Full code Admission and Anticipated Discharge Date Admission Date: January 30, 2020 Supervising Physician Co-Signing Physician Notes Resident Physician Supervision Note: I independently interviewed and examined the patient and verified the amaro history and physical, reviewed labs and image studies, discussed the case with the resident Dr. Parker and agree with the findings and care plan. Subjective No acute events overnight. Patient reports feeling somewhat depressed this morning, rating pain at about a 6 out of 10. Upon my first visiting this morning, she did ask if I can come back later so she can get some more sleep. At that time she denied any chest pain, palpitations, shortness of breath. Endorses a good appetite, no nausea or vomiting. Upon reentering the room in the afternoon, patient did express desire to leave the hospital. She does not feel ready, but is beginning to get anxious and claustrophobic. After discussing this more, she does endorse feeling very stressed out by her illness, recurrent pain, and not being in her home environment. Ideally, she does admit that she wants to stay, but is worried about a good pain regimen. After discussing some options and preferences with her, we did decide to move forward with Percocet every 6 scheduled, as well as Dilaudid as needed, and Benadryl as needed for sleep. We also spent time discussing mood, and after thatshe was eager to share some jokes. Review of Systems Review of Systems: As per HPI Physical Exam Constitutional: Tired appearing 19-year-old female who is lying in her hospital bed, sleeping upon my arrival. Upon conversing, she is alert and oriented, but eager to return to sleep. No acute distress. Upon returning later in the afternoon, she was much more conversant, but was somewhat anxious. Respiratory: Good respiratory effort with symmetric expansion of the chest. Lungs are clear to auscultation bilaterally without any crackles or wheezes. Cardiovascular: Normal rate and regular rhythm. S1-S2 are present without murmurs rubs or gallops. Gastrointestinal (Abdomen): Normal active bowel sounds. Abdomen is soft and nondistended, and continues to be mildly tender to palpation in all quadrants. No changes from yesterday. Psychiatric: Appropriate appearance and behavior. Makes intermittent eye contact. Speech rate and content is appropriate. Mood is anxious and "depressed", affect is congruent with this. Appropriate insight into illness. Results & Data Results & Data ([facility]) Vital Signs (Past 12 Hours) Vital Signs Temp Pulse BP Pulse Ox 02/05/20 07:00 36.7 C 71 103/64 99 Resident Activity Tracking Resident Involvement: Resident Care Provided Care Provided: Adult Hospital Medicine
[2020-02-05] MEDS: oxyCODONE/ACETAMINOPHEN 10-325 TAB PO SCH ×2 (16:36→22:12)
[2020-02-05] MEDS: diphenhydrAMINE 50 MG/ML VIAL IV PRN (22:13)
[2020-02-06] MEDS ORDERED: KETOROLAC TROMETHAMINE 15 MG/ML VIAL IV ONE (00:17)
[2020-02-06] MEDS: oxyCODONE/ACETAMINOPHEN 10-325 TAB PO SCH ×4 (04:05→21:57)
[2020-02-06 06:14] LABS: Hematocrit (blood only) 31.5 % (37-47); Hemoglobin 10.9 g/dL (12.0-16.0); Mean Corpuscular Hgb Conc 34.6 g/dL (32-36); Mean Corpuscular Volume 101.3 fL (80-100); Mean Platelet Volume 9.6 fL (7.4-10.4); Nucleated RBC # (auto) 0.11 K/uL (0-0); Platelet Count 272 K/uL (130-400); RDW Coefficient of Variation 21.3 % (11.5-14.5); RDW Standard Deviation 77.3 fL (36.4-46.3); Red Blood Count 3.11 M/uL (4.2-5.4); White Blood Count 5.77 K/uL (4.8-10.8)
[2020-02-06] MEDS: FOLIC ACID 1 MG TAB PO SCH (09:47)
[2020-02-06] MEDS: busPIRone 15 MG TAB PO SCH ×3 (09:48→20:57)
[2020-02-06] MEDS: PANTOprazole 40 MG TAB PO SCH (09:48)
[2020-02-06] MEDS: DULoxetine HCL 60 MG CAP PO SCH (09:48)
[2020-02-06] MEDS: HYDROXYUREA 500 MG CAP PO SCH ×3 (09:48→20:57)
[2020-02-06] MEDS: ENOXAPARIN INJ 40 MG/0.4 ML SYR SQ SCH (09:49)
--- NOTE | 2020-02-06 11:03 | Hospitalist Progress Note ---
Date of Service February 06, 2020 Assessment & Plan (1) Sickle cell crisis: Donta ("James") Sharath is a 19-year-old female with a history of sickle cell disease, previous vaso-occlusive crises (last hospitalized and discharged on 01/27), borderline personality disorder, pseudoseizures, and depression who present to [facility] in an active, recurrent sickle-cell crisis. She is hemodynamically stable and continues to improve day-by-day. Sickle Cell Anemia / Vaso-occlusive Crisis - Continues to be hemodynamically stable throughout her stay -- temperature, BPs, HR, SpO2 WNL s/p transfusion - Hgb continued to maintain above 10-11 s/p 2U pRBC in the evening of 01/31 - Patient denies any anemic signs or symptoms at the present - Continue hydroxyurea 500mg PO t.i.d. 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 Continue to promote importance of establishing care. Will see Dr. Bailey, PCP, next week in interim. - Benadryl 25mg IV PRN can be used to aid sleep at night - Consider 1/2 NSS for additional hydration / pain control as needed - CBC qAM - Transfuse if Hgb < 9 or if symptomatic * F/u with Dr. Zamzam Bailey, PCP, 02/08 @ 1430h via [facility] Depression - Patient feels that her depression has worsened lately because of recurrent, recent hospitalizations and the burden of managing a complex chronic disease like SCD - Regular follow-ups to discuss mood and support while in the hospital being done day-by-day - Continue to follow mood throughout hospital stay; will also need close outpatient follow-up. She has been working with Dr. Bailey, PCP, with this. - Continue buspirone 15mg PO t.i.d. - Continue duloxetine 60mg PO once daily Pseudoseizures, Borderline Personality Disorder - Noted, therapy as above GERD - Continue pantoprazole daily F/E/N: Regular diet PPX: Lovenox 40mg SQ q24h Dispo: Med/surg -- d/c when pain at acceptable level (goal < 5) Code: Full code Admission and Anticipated Discharge Date Admission Date: January 30, 2020 Supervising Physician Co-Signing Physician Notes Resident Physician Supervision Note: I independently interviewed and examined the patient and verified the amaro history and physical, reviewed labs and image studies, discussed the case with the resident Dr. Whaley and agree with the findings and care plan. Subjective No acute events overnight. Patient's pain controlled with scheduled Percocet and PRN meds. Reports 6/10 pain this morning which is improved from yesterday, but the patient would like to continue with current in-patient pain regimen to get her completely through the current sickle cell crisis. Denies fever/chills, chest pain, SOB, cough, N/V. Review of Systems Review of Systems: Pertinent positives and negatives mentioned in HPI Physical Exam Constitutional: WD/WN, vitals as above Respiratory: normal respiratory effort, lungs clear to auscultation Cardiovascular: RRR, no murmur, no edema Gastrointestinal (Abdomen): normal bowel sounds, soft, nontender, no hepatosplenomegaly Musculoskeletal: tenderness to palpation of upper and lower extremities Skin: no rashes, warm and dry Psychiatric: A+Ox3, euthymic affect Results & Data Results & Data ([facility]) Vital Signs (Past 12 Hours) Vital Signs Temp Pulse Resp BP Pulse Ox 02/06/20 08:06 36.6 C 82 83/50 L 93 02/05/20 23:37 106/74 02/05/20 23:22 36.7 C 79 17 98/62 L 100 Resident Activity Tracking Resident Involvement: Resident Care Provided Care Provided: Adult Hospital Medicine
[2020-02-06] MEDS: HYDROmorphone INJ 0.5 MG/0.5 ML SYR IV PRN ×3 (12:36→23:30)
[2020-02-06] MEDS: diphenhydrAMINE 50 MG/ML VIAL IV PRN (22:59)
[2020-02-07] MEDS: oxyCODONE/ACETAMINOPHEN 10-325 TAB PO SCH ×2 (04:27→09:50)
[2020-02-07 08:07] LABS: Hematocrit (blood only) 31.8 % (37-47); Hemoglobin 10.8 g/dL (12.0-16.0); Mean Corpuscular Hemoglobin 34.4 pg (25-34); Mean Corpuscular Volume 101.3 fL (80-100); Mean Platelet Volume 9.4 fL (7.4-10.4); Nucleated RBC % (auto) 2.1 %; Platelet Count 249 K/uL (130-400); RDW Coefficient of Variation 21.5 % (11.5-14.5); RDW Standard Deviation 77.2 fL (36.4-46.3); Red Blood Count 3.14 M/uL (4.2-5.4); White Blood Count 4.59 K/uL (4.8-10.8)
[2020-02-07 08:23] LABS: Anisocytosis Present; Basophils # (auto) 0.02 K/uL (0-0.2); Basophils % (auto) 0.4 %; Eosinophils % (auto) 2.2 %; Howell-Jolly Bodies 1+; Immature Granulocytes # (auto) 0.02 K/uL (0.00-0.02); Immature Granulocytes % (auto) 0.4 %; Lymphocytes % (auto) 58.8 %; Monocytes # (auto) 0.33 K/uL (0.11-0.59); Monocytes % (auto) 7.2 %; Neutrophils # (auto) 1.42 K/uL (1.4-6.5); Poikilocytosis Present; Target Cells 2+
[2020-02-07] MEDS: FOLIC ACID 1 MG TAB PO SCH (09:51)
[2020-02-07] MEDS: busPIRone 15 MG TAB PO SCH ×2 (09:51→14:25)
[2020-02-07] MEDS: HYDROXYUREA 500 MG CAP PO SCH ×2 (09:51→14:25)
[2020-02-07] MEDS: DULoxetine HCL 60 MG CAP PO SCH (09:51)
[2020-02-07] MEDS: ENOXAPARIN INJ 40 MG/0.4 ML SYR SQ SCH (09:51)
[2020-02-07] MEDS: PANTOprazole 40 MG TAB PO SCH (09:52)
--- NOTE | 2020-02-07 10:58 | Discharge Summary ---
Date of Service February 07, 2020 Admission HPI Per Admitting Provider The patient is a 19-year-old female with a past medical history including vaso- occlusive sickle cell crisis, pseudoseizures, elevated LFTs, sickle cell anemia, borderline personality disorder, depression, and suicide gesture. She has had multiple admissions this year for sickle cell crises. She has no particular event that she can associate with triggering this crisis. Admission Exam Per Admitting Provider The patient is awake, alert and oriented 3, well developed and well nourished, normocephalic and atraumatic, lying in bed and in no acute distress. HEENT--PERRL, EOMI, mucous membranes and oropharynx dry. Neck--supple. No JVD. No bruits. Thyroid normal, trachea midline, no adenopathy. Heart--normal S1 and S2. No murmurs, rubs or gallops. Lungs--clear bilaterally, no respiratory distress, no accessory muscle use. Abdomen--normal bowel sounds and soft. Nontender. Nondistended, no hernias or masses, no organomegaly. Extremities--no cyanosis or clubbing. No edema. There are good distal pulses b/l. Dermatologic--normal skin turgor, normal color, no abnormal lymph nodes, no rash. Neurologic--cranial nerves II through XII grossly intact. Rheumatologic--normal range of motion. Psychiatric--normal affect. Principal Diagnosis sickle cell disease vaso-occlusive crisis Discharge Exam Constitutional Well-appearing 19-year-old female who is sitting up in her hospital bed, watching flex on her computer upon my arrival. She is smiling throughout her conversation. Alert and oriented, no acute distress. Eyes + anicteric sclerae Respiratory Good respiratory effort with symmetric expansion of the chest. Lungs are clear to auscultation bilaterally without crackles or wheezes. Cardiovascular Normal rate and regular rhythm. S1 and S2 present without murmurs rubs or gallops. Gastrointestinal (Abdomen) Normoactive bowel sounds. Abdomen is soft, nondistended, and continues to be very mildly tender to the touch in all quadrants. Unchanged since yesterday's exam. Psychiatric On examination this morning: Patient is appropriately dressed for the situation. Her behavior is cooperative and interactive, making good eye contact throughout. Speech content, rate, and tone is appropriate. Mood is " so-so". Affect does appear slightly more positive in the stated mood. Discharge Data Allergies Allergy/AdvReac Type Severity Reaction Status Date / Time No Known Allergies Allergy Verified 01/30/20 22:15 Consultations 01/30/20 22:58 ED Decision to Admit Stat 01/31/20 01:05 Consult Hematology Routine 02/02/20 17:18 Consult [facility] rn new grad Routine Hospital Course (1) Sickle cell crisis: Donta ("James"Desirae Early is a 19-year-old female with a history of sickle cell disease, previous vaso-occlusive crises (last hospitalized and discharged on 01/27), borderline personality disorder, pseudoseizures, and depression who present to [facility] in an active, recurrent sickle-cell crisis. She received 2U pRBC at the beginning of her admission, but did not require further transfusions throughout. Remained hemodynamically stable throughout stay. Sickle Cell Anemia / Vaso-occlusive Crisis - Clinically, presented to [facility] with significant, diffuse body pain just days after a previous hospitalization for sickle cell vaso-occlusive crisis. Major trigger for her is stress. - Hgb was initially as low as 7, but did improve significantly s/p 2U pRBC on 01/31 -- remained between 9-11 throughout remainder of admission with good hemodynamic stability - Final pain regimen in hospital: [[ Percocet PO q6h WALTER ]] + [[ Dilaudid 0.25 IV q3h PRN ]] - Pain goal prior to d/c < 5, in alliance with patient's readiness - Discharge Pain Control Regimen: Percocet 10-325mg PO q6h WALTER->PRN, tramadol 50mg PO q12h PRN, ibuprofen 600mg PO q6-8h - patient has these rx at home. - Hydroxyurea 500mg PO t.i.d. - Folic acid 2mg PO daily - Options for outpatient local change person offered during stay; patient would like to hold-back from scheduling at this time * F/u with Dr. Zamzam Bailey, PCP, 02/08 @ 1430h via [facility] Depression - Patient feels that her depression has worsened lately because of recurrent, recent hospitalizations and the burden of managing a complex chronic disease like SCD - Regular follow-ups to discuss mood and support will be required in outpatient setting to optimize (and was done here while in the hospital) - Buspirone 15mg PO t.i.d. - Duloxetine 60mg PO once daily (increased from 30mg PO once daily at admission) - Patient did express that she would be willing to see therapist in outpatient setting Pseudoseizures, Borderline Personality Disorder - Noted, therapy as above -- no exacerbations throughout stay GERD - Daily Pantoprazole ---- Outpatient Labs/Comments: - Significant time in this hospital stay was spent optimizing pain control. Upon discharge, patient was well controlled on Percocet q6h WALTER and was no longer requiring IV. Should consider transitioning from q6h WALTER --> PRN based on pain after discharge - Continue to optimize MDD management -- patient did note that she would consider working with a therapist in the outpatient setting alongside continuing her prescribed Cymbalta/Buspar - CBCs demonstrated Hgb 10+ in the days prior to d/c. Can consider CBC in 2-4 weeks to re-check Total Time Total Time Spent Total Time Spent (In Minutes): see attending attestation Total Time Includes: Examination of the Patient, Discharge Planning, Medication Reconciliation, Communication With Other Providers and Other Discharge Plan Discharge Items Patient Disposition: Home - Self-Care Reason For Visit: sickle cell crisis Discharge Diagnosis: sickle cell anemia vaso-occlusive crisis Condition on Discharge: Good Activity: As commented below Non-emergency contact: Primary Care Provider Call non-emergency contact if: you have any medication questions, your symptoms worsen, your pain is unusual for you and your temperature is above 101 Follow-up/Referrals: Zamzam Bailey MD [Primary Care Provider] - 02/09/20 2:30 pm (YOU CURRENTLY HAVE AN APPOINTMENT SCHEDULED WITH DR. BAILEY ON 02/08 @ 2:30PM.) Diet: Regular Addtl Attending Provider Instructions: You were seen at [facility] from 01/29 to 02/06 for evaluation and management of a sickle cell crisis. Throughout your stay, you underwent regular lab tests to ensure that your blood count did not fall too low. You did require a transfusion with two total bags of blood. Following these transfusions, you continued to improve day-by-day. We focused a lot on pain control and roman catholic of strength. You received your home medications, in addition to IV medications, to aid you through this exacerbation. We also spent a lot of time discussing the difficulties and hardships that your disease creates for you, and goals for moving forward -- such as better managing depression, as well as getting you established with a change person. As discussed, the [facility] does have hematologists who can help you manage your disease; while you did not want to establish at this time, please know that they are available and there to see you. In the interim, please maintain regular follow-ups with your primary care physician. You are scheduled to see Dr. Bailey next week to discuss this visit (02/08 at 2:30pm). During this visit, you should continue to discuss optimal management of chronic pain and the medications that are most appropriate to help you achieve this. You should also continue discussing lifestyle management options, and further medical management of your depression. If you experience any new fevers, chills, chest pain, shortness of breath, symptoms you know are consistent with another sickle cell exacerbation, or other worrisome symptoms, please report to the ER immediately or call 911 for immediate medical attention. MEDICATION CHANGES: - Your Cymbalta (duloxetine) was increased from 30mg daily to 60mg daily upon your admission; please continue discuss further management of this with your PCP - Otherwise, no new or changed medications; continue your hydroxyurea 500mg three times daily as prescribed, folic acid 2mg by mouth daily, and pain regimen established by you and your PCP PAIN REGIMEN: - Until your appointment with Dr. Bailey, continue taking Percocet every 6 hours for pain, as you feel needed (it was scheduled in the hospital), tramadol every 12 hours as needed for pain, and ibuprofen every 6 hours as needed for pain Pending Studies at Discharge: No Stand-Alone Forms: My [facility], Smoking Cessation Medications and DC Order Prescriptions: New duloxetine 60 mg Capsule,Delayed Release(Dr/Ec) 60 mg PO DAILY 30 Days Qty: 30 RF: 1 Continued tramadol 50 mg Tablet 50 mg PO Q12 PRN (Reason: Pain) RF: 0 folic acid 1 mg Tablet 2 mg PO DAILY RF: 0 hydroxyurea 500 mg capsule 500 mg PO TID RF: 0 pantoprazole 40 mg tablet,delayed release (DR/EC) 40 mg PO DAILY RF: 0 buspirone 15 mg tablet 15 mg PO TID RF: 0 oxycodone-acetaminophen [Percocet] 10-325 mg tablet 1 tab PO Q6H PRN (Reason: pain) Qty: 10 RF: 0 Discontinued duloxetine 30 mg capsule,delayed release(DR/EC) 30 mg PO DAILY RF: 0 Discharge Orders: Discharge Order (Routine); Ordered 02/07/20 Ordered By: Cesar Aragon/Other Patient Handouts: Sickle Cell Anemia Admission Data Admit Date/Time: 01/30/20 23:28 Attending Provider: Caty Serna Admit Provider: Chandler Mena Primary Care Provider: Zamzam Bailey Other Providers: Chandler Mena ; Jp Dietrich V. Other Interventions: Discharge Summary Assessment (RN) Last Done: 02/07/20 14:06 Supervising Physician Co-Signing Physician Notes Resident Physician Supervision Note: I independently interviewed and examined the patient and verified the amaro history and physical, reviewed labs and image studies, discussed the case with the resident Dr. Parker and agree with the findings and care plan. Resident Activity Tracking Resident Involvement: Resident Care Provided Care Provided: Adult Hospital Medicine
== END 2020-02-07 14:41 | disposition home or self-care (01) ==
LOC: ED 21:06 → SUATTDRO 23:28 → 3N 23:28

== ENCOUNTER 2020-05-15 20:39 | Inpatient (IN) ==
[2020-05-15] MEDS ORDERED: HYDROmorphone INJ 1 MG/ML SYRINGE IV STA ×3 (21:44→23:18)
[2020-05-15] MEDS ORDERED: ONDANSETRON INJ 2 MG/ML 2 ML VIAL IV STA (21:44)
[2020-05-15] MEDS ORDERED: SODIUM CHLORIDE 0.9% 1000ML 1,000 ML IV STA (21:44)
[2020-05-15 22:24] LABS: Basophils # (auto) 0.03 K/uL (0-0.2); Basophils % (auto) 0.4 %; Eosinophils # (auto) 0.15 K/uL (0-0.5); Hemoglobin 9.1 g/dL (12.0-16.0); Immature Granulocytes # (auto) 0.03 K/uL (0.00-0.02); Immature Granulocytes % (auto) 0.4 %; Lymphocytes % (auto) 45.9 %; Mean Corpuscular Hemoglobin 37.4 pg (25-34); Mean Corpuscular Hgb Conc 36.4 g/dL (32-36); Mean Corpuscular Volume 102.9 fL (80-100); Mean Platelet Volume 8.7 fL (7.4-10.4); Monocytes # (auto) 0.68 K/uL (0.11-0.59); Monocytes % (auto) 8.9 %; Neutrophils # (auto) 3.24 K/uL (1.4-6.5); Neutrophils % (auto) 42.4 %; Nucleated RBC # (auto) 0.04 K/uL (0-0); Nucleated RBC % (auto) 0.5 %; Platelet Count 351 K/uL (130-400); RDW Coefficient of Variation 19.2 % (11.5-14.5); RDW Standard Deviation 73.2 fL (36.4-46.3); Red Blood Count 2.43 M/uL (4.2-5.4); Reticulocyte % 8.8 % (0.5-2.0); Reticulocytes # 0.21 10^6/uL (0.02-0.10); White Blood Count 7.63 K/uL (4.8-10.8)
[2020-05-15] MEDS ORDERED: ACETAMINOPHEN 1,000 MG/100 ML VIAL IV STA (22:37)
[2020-05-15 22:41] LABS: Alanine Aminotransferase 29 U/L (12-78); Albumin Level 3.7 gm/dl (3.4-5.0); Aspartate Aminotransferase 22 U/L (15-37); Blood Urea Nitrogen 5 mg/dl (7-18); Calcium 9.3 mg/dl (8.5-10.1); Carbon Dioxide 26 mmol/L (21-32); Chloride 111 mmol/L (98-107); Est GFR (African American) > 150.0; Est GFR (Non-African American) 136.6; Glucose 84 mg/dl (70-99); Potassium 3.8 mmol/L (3.5-5.1); Sodium 141 mmol/L (136-145)
[2020-05-15 22:45] LABS: Albumin Globulin Ratio 0.9 (0.9-2); Alkaline Phosphatase 86 U/L (45-117); Bilirubin,Total 0.9 mg/dl (0.2-1); Total Protein 7.7 gm/dl (6.4-8.2); Troponin I < 0.015 ng/ml (0-0.045)
[2020-05-15 22:49] LABS: Pregnancy Test, Serum Negative (Negative)
[2020-05-15] MEDS ORDERED: SODIUM CHLORIDE 0.9% 1000ML 500 ML IV ONE (22:57)
--- NOTE | 2020-05-15 23:29 | Emergency Department Note ---
History of Present Illness General Chief complaint: Illness Stated complaint: SICKLE CELL CRISIS Time Seen by Provider: 05/15/20 21:28 History of Present Illness Maximum Pain Intensity: 6 This 19-year-old with sickle cell presents to the ER complaining of sickle cell crisis Location: Generalized Quality: Painful Severity: Severe Duration: Today Timing: Today Context: Patient was concerned and came in Modifying factors: better with nothing; worse with activity Patient has a history of sickle cell crisis. Symptoms are similar. Patient denies fevers, flulike illness, vomiting, diarrhea. She has been taking her hydroxyurea. Home Medications Medication Instructions Recorded Confirmed Type folic acid 2 mg PO HS 11/18/19 05/15/20 History buspirone 45 mg PO HS 01/22/20 05/15/20 History pantoprazole 40 mg PO HS 01/22/20 05/15/20 History duloxetine 60 mg PO HS 04/17/20 05/15/20 History hydroxyurea 1,000 mg PO BID 30 Days #120 cap 05/01/20 05/15/20 Rx oxycodone-acetaminophen 1 tab PO TID PRN 05/07/20 05/15/20 History Allergies Allergy/AdvReac Type Severity Reaction Status Date / Time No Known Allergies Allergy Verified 05/15/20 22:12 Past Med/Surg History Medical History Borderline personality disorder Depression Murmur, cardiac Nausea Pneumonia Pseudoseizures Seizure-like activity Sickle cell anemia Sickle cell crisis Suicide gesture Surgical History No pertinent past surgical history Family History Mother Hypertension Father Ulcer Other Family history non-contributory Social History Smoking Status: Never smoker Second Hand Exposure: No; Hx Alcohol Use: Yes Alcohol type: beer Hx Substance Use: No Preferred Language: Italian Communication Ability: Effective Brim Stitcher Required: No Beliefs That Will Affect Care: None marital status: Single Current Living Situation: Other Current Living Situation Comment: Apartment with roomates 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 current occupation: [employer] major Feels Safe at Home: Yes Assistive Devices: Glasses Review of Systems A total of 10 systems reviewed and were otherwise negative Physical Exam Vital Signs Vital Signs - 24 hr 05/15/20 20:58 05/15/20 21:40 05/15/20 21:41 Temperature 37.2 C Temperature Source Temporal Artery Scan Pulse Rate 88 84 Pulse Rate [Right Finger] Respiratory Rate 20 17 Respiratory Effort / Characteristics Respiratory Depth Shallow Respiratory Pattern Blood Pressure 120/85 113/64 Blood Pressure [Right Arm] Blood Pressure Mean 96 80 Blood Pressure Mean [Right Arm] Blood Pressure Position [Right Arm] Pulse Oximetry 98 100 100 Oxygen Delivery Method Room Air Room Air Room Air Sepsis Recent Fever Within 48 Hours No Sepsis New/Unexplained Change in Mental Status No Sepsis Action Taken by Nursing No Action Required 05/15/20 23:09 Temperature Temperature Source Pulse Rate Pulse Rate [Right Finger] 76 Respiratory Rate 16 Respiratory Effort / Characteristics Non-Labored Spontaneous Respiratory Depth Normal Respiratory Pattern Regular Blood Pressure Blood Pressure [Right Arm] 110/59 L Blood Pressure Mean Blood Pressure Mean [Right Arm] 76 Blood Pressure Position [Right Arm] Lying Pulse Oximetry 97 Oxygen Delivery Method Room Air Sepsis Recent Fever Within 48 Hours Sepsis New/Unexplained Change in Mental Status Sepsis Action Taken by Nursing VITALS: Vitals are noted on the nurse's note and reviewed by myself. Vital signs stable. GENERAL: Pleasant female who appears in pain, in no acute distress, nondiaphoretic, well-developed well-nourished. SKIN: The skin was without rashes, erythema, edema, or bruising. There is no tenting of the skin. Capillary reflex less than 2 seconds. HEAD: Normocephalic atraumatic. EARS: External auditory canals clear, tympanic membranes pearly ulrich without erythema or effusion bilaterally. EYES: Pupils equal round and reactive to light and accommodation. Conjunctivae without injection, sclerae without icterus. Extraocular movements intact. NOSE: Patent, turbinates without inflammation or discharge. No sinus tenderness. MOUTH: Mucous membranes moist. Pharynx without erythema or exudate. Uvula midline. Airway patent. Tongue does not deviate. NECK: Supple without nuchal rigidity. No lymphadenopathy. No thyromegaly. Cervical spine is nontender. No JVD. HEART: Regular rate and rhythm LUNGS: Clear to auscultation bilaterally without wheezes, rales or rhonchi. No retractions or accessory muscle use. ABDOMEN: Positive bowel sounds x 4. Normal tympanic percussion. Soft, nontender, without masses or organomegaly. Youngblood sign negative. No guarding or rebound tenderness. No CVA tenderness MUSCULOSKELETAL: No muscle atrophy, erythema, or edema noted. NEURO: Patient was alert and oriented to person place and time. Normal sens ation to light and sharp touch. No focal neurological deficits. Course Administered Medications Discontinued Medications Hydromorphone HCl (Hydromorphone Inj 1 Mg/Ml Syringe) 1 mg IV NOW STA Stop: 05/15/20 21:45 Last Admin: 05/15/20 21:50 Dose: 1 mg Documented by: [id number] Hydromorphone HCl (Hydromorphone Inj 1 Mg/Ml Syringe) 1 mg IV NOW STA Stop: 05/15/20 23:19 Last Admin: 05/15/20 23:30 Dose: 1 mg Documented by: [id number] Sodium Chloride (Nss 1000ml) 1,000 mls @ 999 mls/hr IV .Q1H1M STA Stop: 05/15/20 22:44 Last Infusion: 05/15/20 22:42 Dose: 0 mls/hr Documented by: [id number] Admin: 05/15/20 21:50 Dose: 999 mls/hr Documented by: [id number] Acetaminophen (Ofirmev) 1,000 mg in 100 mls @ 400 mls/hr IV NOW STA Stop: 05/15/20 22:51 Last Infusion: 05/15/20 23:08 Dose: 0 mls/hr Documented by: [id number] Admin: 05/15/20 22:44 Dose: 400 mls/hr Documented by: [id number] Sodium Chloride (Nss 1000ml) 500 mls @ 999 mls/hr IV .Q31M ONE Stop: 05/15/20 23:27 Last Admin: 05/15/20 23:08 Dose: 999 mls/hr Documented by: [id number] Ondansetron HCl (Ondansetron Inj 2 Mg/Ml 2 Ml Vial) 4 mg IV NOW STA Stop: 05/15/20 21:45 Last Admin: 05/15/20 21:50 Dose: 4 mg Documented by: [id number] Medical Decision Making Medical Records Attestation: I reviewed the patient's medical records. Home Medications Current Medication List: was personally reviewed by me Laboratory Data Attestation: I reviewed the patient's lab results. Result diagrams: 05/15/20 22:11 05/15/20 22:11 Lab Results 05/15/20 05/15/20 05/15/20 Range/Units 22:11 22:11 22:11 WBC 7.63 (4.8-10.8) K/uL RBC 2.43 L (4.2-5.4) M/uL Hgb 9.1 L (12.0-16.0) g/dL Hct 25.0 L (37-47) % MCV 102.9 H (80-100) fL MCH 37.4 H (25-34) pg MCHC 36.4 H (32-36) g/dL RDW Std Deviation 73.2 H (36.4-46.3) fL RDW Coeff of Nando 19.2 H (11.5-14.5) % Plt Count 351 (130-400) K/uL MPV 8.7 (7.4-10.4) fL Immature Gran % (Auto) 0.4 % Neut % (Auto) 42.4 % Lymph % (Auto) 45.9 % Sibley % (Auto) 8.9 % Eos % (Auto) 2.0 % Baso % (Auto) 0.4 % Reticulocyte % (Auto) 8.8 H (0.5-2.0) % Neut # (Auto) 3.24 (1.4-6.5) K/uL Lymph # (Auto) 3.50 H (1.2-3.4) K/uL Sibley # (Auto) 0.68 H (0.11-0.59) K/uL Eos # (Auto) 0.15 (0-0.5) K/uL Baso # (Auto) 0.03 (0-0.2) K/uL Reticulocyte # 0.21 H (0.02-0.10) 10^6/uL Immature Gran # (Auto) 0.03 H (0.00-0.02) K/uL Absolute Nucleated RBC 0.04 H (0-0) K/uL Nucleated RBC % (auto) 0.5 % Sodium 141 (136-145) mmol/L Potassium 3.8 (3.5-5.1) mmol/L Chloride 111 H (98-107) mmol/L Carbon Dioxide 26 (21-32) mmol/L Anion Gap 5.0 (3-11) BUN 5 L (7-18) mg/dl Creatinine 0.52 L (0.6-1.2) mg/dl Est Cr Clr Drug Dosing Not Reportable Est GFR ( Amer) > 150.0 Est GFR (Non-Af Amer) 136.6 BUN/Creatinine Ratio 9.0 L (10-20) Glucose 84 (70-99) mg/dl Calcium 9.3 (8.5-10.1) mg/dl Total Bilirubin 0.9 (0.2-1) mg/dl AST 22 (15-37) U/L ALT 29 (12-78) U/L Alkaline Phosphatase 86 (45-117) U/L Troponin I < 0.015 (0-0.045) ng/ml Total Protein 7.7 (6.4-8.2) gm/dl Albumin 3.7 (3.4-5.0) gm/dl Globulin 4.0 (2.5-4.0) gm/dl Albumin/Globulin Ratio 0.9 (0.9-2) HCG, Qual Negative (Negative) COVID-19 Eval Order 05/15/20 Range/Units 23:22 WBC (4.8-10.8) K/uL RBC (4.2-5.4) M/uL Hgb (12.0-16.0) g/dL Hct (37-47) % MCV (80-100) fL MCH (25-34) pg MCHC (32-36) g/dL RDW Std Deviation (36.4-46.3) fL RDW Coeff of Nando (11.5-14.5) % Plt Count (130-400) K/uL MPV (7.4-10.4) fL Immature Gran % (Auto) % Neut % (Auto) % Lymph % (Auto) % Sibley % (Auto) % Eos % (Auto) % Baso % (Auto) % Reticulocyte % (Auto) (0.5-2.0) % Neut # (Auto) (1.4-6.5) K/uL Lymph # (Auto) (1.2-3.4) K/uL Sibley # (Auto) (0.11-0.59) K/uL Eos # (Auto) (0-0.5) K/uL Baso # (Auto) (0-0.2) K/uL Reticulocyte # (0.02-0.10) 10^6/uL Immature Gran # (Auto) (0.00-0.02) K/uL Absolute Nucleated RBC (0-0) K/uL Nucleated RBC % (auto) % Sodium (136-145) mmol/L Potassium (3.5-5.1) mmol/L Chloride (98-107) mmol/L Carbon Dioxide (21-32) mmol/L Anion Gap (3-11) BUN (7-18) mg/dl Creatinine (0.6-1.2) mg/dl Est Cr Clr Drug Dosing Est GFR ( Amer) Est GFR (Non-Af Amer) BUN/Creatinine Ratio (10-20) Glucose (70-99) mg/dl Calcium (8.5-10.1) mg/dl Total Bilirubin (0.2-1) mg/dl AST (15-37) U/L ALT (12-78) U/L Alkaline Phosphatase (45-117) U/L Troponin I (0-0.045) ng/ml Total Protein (6.4-8.2) gm/dl Albumin (3.4-5.0) gm/dl Globulin (2.5-4.0) gm/dl Albumin/Globulin Ratio (0.9-2) HCG, Qual (Negative) COVID-19 Eval Order CovFluRsv at [facility] Imaging Data Attestation: I personally reviewed and interpreted this imaging study as follows: MDM Narrative Prior records/ancillary studies reviewed and summarized above. Nursing notes reviewed. The patient's history was concerning for sickle cell crisis. Differential diagnosis: Etiologies such as sickle cell crisis, metabolic, infection, hypo/hyperglycemia, electrolyte abnormalities, cardiac sources, intracerebral event, toxicologic, neurologic, as well as others were entertained. Physical examination: As above. ER treatment provided: IV Lock An order was placed for continuous cardiac monitoring. The monitor shows a rate of 60-100 with a sinus rhythm. IV fluids, Dilaudid, Tylenol On reassessment the patient felt better. Diagnostics interpretation by me: ECG: Ordered for pain EKG: Normal sinus, normal intervals, no acute ST-T wave changes. Impression normal sinus rhythm interpreted myself I think arrhythmia is unlikely. EKG shows normal sinus rhythm with no interval abnormalities such as QT prolongation or WPW. There are no findings to suggest Brugada syndrome. Cardiac monitoring in the emergency department reveals no tachycardic or bradycardic dysrhythmia. Hypertrophic cardiomyopathy was considered but there are no clear historical elements pointing toward this. EKG is not suggestive. The QRS voltage is not extremely large and there are no suggestive Q waves. The labs revealed elevated retake count, chronic anemia Imaging studies: Chest x-ray with no acute consolidation, pneumothorax or free air per my interpretation Consultation: A consultation was placed with the hospitalist, Dr. Castrejon. The case was discussed and diagnostics were reviewed. The patient was evaluated in the ER for further treatment. Exam and history seem consistent with sickle cell crisis. Patient is requiring moderate amount of pain meds. She is requesting admission. Medicine was consulted. She will be evaluated for admission. By the evaluation outlined above emergent etiologies such as infection, electrolyte abnormalities, intracerebral event, toxologic, neurologic, abnormalities blood glucose, metabolic, as well as others were deemed relatively unlikely. The pt informed about the findings as listed above. All questions were answered and pleased with the treatment. The chart was completed utilizing [employer] Speech voice recognition software. Grammatical errors, random word insertions, pronoun errors, and incomplete sentences are an occassional consequence of this system due to software limitations, ambient noise, and hardware issues. Any formal questions or concerns about the content, text, or information contained within the body of this dictation should be directly addressed to the physician assistant golf coach for clarification. Impression & Plan Sickle cell anemia, Vaso-occlusive sickle cell crisis Discharge Plan Visit Data Chief Complaint: Illness Stated Complaint: SICKLE CELL CRISIS ED Provider: Mello Hyatt ED Midlevel Provider: Maria Del Carmen Ford Discharge Problem: Sickle cell anemia, Vaso-occlusive sickle cell crisis Patient Disposition: Admitted As Inpatient Condition: Good Forms Stand Alone Forms: My [facility] Prescriptions Prescriptions: No Action folic acid 1 mg Tablet 2 mg PO HS RF: 0 pantoprazole 40 mg tablet,delayed release (DR/EC) 40 mg PO HS RF: 0 buspirone 15 mg tablet 45 mg PO HS RF: 0 duloxetine 60 mg capsule,delayed release(DR/EC) 60 mg PO HS RF: 0 hydroxyurea 500 mg Capsule 1,000 mg PO BID 30 Days Qty: 120 RF: 1 oxycodone-acetaminophen 5-325 mg tablet 1 tab PO TID PRN (Reason: Pain) RF: 0 Referrals Referrals: Zamzam Bailey MD [Primary Care Provider] - Discharge Problem: Sickle cell anemia Qualifiers: Sickle-cell associated disorders: with unspecified crisis Qualified Code(s): D57.00 - Hb-SS disease with crisis, unspecified
[2020-05-16 00:15] LABS: Influenza A virus by PCR Negative (Neg); Influenza B virus by PCR Negative (Neg); RSV by PCR Negative (Neg); SARS CoV2 RNA(COVID-19) InHosp NEGATIVE (Negative)
--- NOTE | 2020-05-16 00:31 | History & Physical Report ---
Date of Service May 16, 2020 Assessment & Plan (1) Sickle cell anemia with pain: 19yo female with SSA presenting with acute pain crisis. Pain ongoing x 1 week. Full body. She does complain of chest discomfort as well. No fever or respiratory distress, adequate oxygenation on room air. Pulmonary exam is unremarkable. CXR is without infiltrate. Coubt ACS at this time. Hgb=9.1, Hct=25 with elevated reticulocyte count consistent with sickle cell. Platelet count is normal. -Admit to medical -Supplemental O2 may assist with sickle cell crisis -Hydration with 1/2 NSS at 100mL/hr x 3 liters -Continue Hydroxyurea 1000mg po BID -Continue Folic Acid 2mg po qHS -Continue Oxycodone - will increase to 1 tab po q 4 hours as needed. -Dilaudid 0.5mg IV q 2 hours as needed -Monitor for progression of chest discomfort and possible acute chest syndrome Present on Admission?: Yes (2) Positive Lyme disease serology: Patient with positive Lyme serology noted during prior admission. She was started on Doxycycline 100mg po BID x 14 days which should have been completed yesterday. Patient states she took this medication. Present on Admission?: Yes (3) Depression: Patient with MDD. Also with borderline personality disorder. She states that her moods are stable at present. She follows with Psychiatry outpatient -Continue Duloxetine -Continue Buspirone Present on Admission?: Yes (4) GERD (gastroesophageal reflux disease): Chronic. Stable -Protonix 40mg po daily Present on Admission?: Yes History of Present Illness Chief Complaint: sickle cell crisis Primary Care Provider: Zamzam Bailey MD Ms. Early is a 19yo female with history of sickle cell anemia presenting with acute pain secondary to sickle cell crisis. Patient is well known to the Hospitalist service and has been admitted multiple times for similar symptoms. Most recently 04/18/20 - 05/01/20. Patient was treated with IV fluids and pain medication at that time. She was evaluated by Hematology. Patient felt well when she was discharged home. She reports increasing pain over the last week. Her pain is full body, mostly in her legs and chest. She has some mild shortness of breath as well. She has some mild nausea Denies fever/chills/cough. Denies abdominal pain, vomiting, diarrhea. No additional complaints Reports being compliant with her home medications Reports stress is well managed Thinks the cold weather possibly precipitated her pain crisis ER Course: Tylenol, Dilaudid, Zofran Allergies Allergy/AdvReac Type Severity Reaction Status Date / Time No Known Allergies Allergy Verified 05/15/20 22:12 Home Medications Medication Instructions Recorded Confirmed Type folic acid 2 mg PO HS 11/18/19 05/15/20 History buspirone 45 mg PO HS 01/22/20 05/15/20 History pantoprazole 40 mg PO HS 01/22/20 05/15/20 History duloxetine 60 mg PO HS 04/17/20 05/15/20 History hydroxyurea 1,000 mg PO BID 30 Days #120 cap 05/01/20 05/15/20 Rx oxycodone-acetaminophen 1 tab PO TID PRN 05/07/20 05/15/20 History Past Med/Surg History Medical History Borderline personality disorder Depression Murmur, cardiac Nausea Pneumonia Pseudoseizures Seizure-like activity Sickle cell anemia Sickle cell crisis Suicide gesture Surgical History No pertinent past surgical history Family History Mother Hypertension Father Ulcer Other Family history non-contributory Social History Smoking Status: Never smoker Second Hand Exposure: No; Hx Alcohol Use: Yes Alcohol type: beer Hx Substance Use: No Preferred Language: Tristanian Communication Ability: Effective Electrical 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: No Beliefs That Will Affect Care: None marital status: Single Current Living Situation: Other Current Living Situation Comment: Apartment with roomates 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 current occupation: [employer] major Feels Safe at Home: Yes Assistive Devices: Glasses Review of Systems Review of Systems: All systems reviewed & are unremarkable except as noted in HPI & below Physical Exam Physical Exam: General: patient resting comfortably, NAD, non-toxic in appearance, AA&O x 4 Skin: warm, dry, intact, no rashes or lesions HEENT: NC/AT, PERRL, EOMI, anicteric sclera, conjunctiva without injection, external ear normal to inspection and nontender, nares patent, moist mucus membranes, dentition intact, no oropharyngeal lesions, neck supple, trachea midline, no LAD, no thyromegaly, no JVD Heart: +S1/S2, regular, no m/r/g Lungs: equal air entry bilaterally, no rales/rhonchi/wheezes Abd: +BS, soft, NT/ND, no masses/organomegaly/ascites Ext: warm, 2+ pulses in UE/LE bilaterally, no clubbing/cyanosis or edema Neuro: nonfocal, patient AA&O x 4, speech intact, no facial droop, moving all extremities on command with equal strength 5/5 Results & Data Results & Data ([facility]) Vital Signs (Past 12 Hours) Vital Signs Temp Pulse Pulse Resp BP BP Pulse Ox 05/16/20 00:00 74 14 110/48 L 97 05/15/20 23:31 77 16 106/63 97 05/15/20 23:30 74 16 05/15/20 23:09 76 16 110/59 L 97 05/15/20 21:41 84 17 113/64 100 05/15/20 21:40 100 05/15/20 20:58 37.2 C 88 20 120/85 98 Laboratory Results Lab Results 05/15/20 05/15/20 05/15/20 Range/Units 22:11 22:11 22:11 WBC 7.63 (4.8-10.8) K/uL RBC 2.43 L (4.2-5.4) M/uL Hgb 9.1 L (12.0-16.0) g/dL Hct 25.0 L (37-47) % MCV 102.9 H (80-100) fL MCH 37.4 H (25-34) pg MCHC 36.4 H (32-36) g/dL RDW Std Deviation 73.2 H (36.4-46.3) fL RDW Coeff of Nando 19.2 H (11.5-14.5) % Plt Count 351 (130-400) K/uL MPV 8.7 (7.4-10.4) fL Immature Gran % (Auto) 0.4 % Neut % (Auto) 42.4 % Lymph % (Auto) 45.9 % Holmes % (Auto) 8.9 % Eos % (Auto) 2.0 % Baso % (Auto) 0.4 % Reticulocyte % (Auto) 8.8 H (0.5-2.0) % Neut # (Auto) 3.24 (1.4-6.5) K/uL Lymph # (Auto) 3.50 H (1.2-3.4) K/uL Holmes # (Auto) 0.68 H (0.11-0.59) K/uL Eos # (Auto) 0.15 (0-0.5) K/uL Baso # (Auto) 0.03 (0-0.2) K/uL Reticulocyte # 0.21 H (0.02-0.10) 10^6/uL Immature Gran # (Auto) 0.03 H (0.00-0.02) K/uL Absolute Nucleated RBC 0.04 H (0-0) K/uL Nucleated RBC % (auto) 0.5 % Sodium 141 (136-145) mmol/L Potassium 3.8 (3.5-5.1) mmol/L Chloride 111 H (98-107) mmol/L Carbon Dioxide 26 (21-32) mmol/L Anion Gap 5.0 (3-11) BUN 5 L (7-18) mg/dl Creatinine 0.52 L (0.6-1.2) mg/dl Est Cr Clr Drug Dosing Not Reportable Est GFR ( Amer) > 150.0 Est GFR (Non-Af Amer) 136.6 BUN/Creatinine Ratio 9.0 L (10-20) Glucose 84 (70-99) mg/dl Calcium 9.3 (8.5-10.1) mg/dl Total Bilirubin 0.9 (0.2-1) mg/dl AST 22 (15-37) U/L ALT 29 (12-78) U/L Alkaline Phosphatase 86 (45-117) U/L Troponin I < 0.015 (0-0.045) ng/ml Total Protein 7.7 (6.4-8.2) gm/dl Albumin 3.7 (3.4-5.0) gm/dl Globulin 4.0 (2.5-4.0) gm/dl Albumin/Globulin Ratio 0.9 (0.9-2) HCG, Qual Negative (Negative) COVID-19 Eval Order SARS-CoV-2 (PCR) (Negative) Influenza Type A (PCR) (Neg) Influenza Type B (PCR) (Neg) RSV (RT-PCR) (Neg) 05/15/20 05/15/20 Range/Units 23:22 23:22 WBC (4.8-10.8) K/uL RBC (4.2-5.4) M/uL Hgb (12.0-16.0) g/dL Hct (37-47) % MCV (80-100) fL MCH (25-34) pg MCHC (32-36) g/dL RDW Std Deviation (36.4-46.3) fL RDW Coeff of Nando (11.5-14.5) % Plt Count (130-400) K/uL MPV (7.4-10.4) fL Immature Gran % (Auto) % Neut % (Auto) % Lymph % (Auto) % Holmes % (Auto) % Eos % (Auto) % Baso % (Auto) % Reticulocyte % (Auto) (0.5-2.0) % Neut # (Auto) (1.4-6.5) K/uL Lymph # (Auto) (1.2-3.4) K/uL Holmes # (Auto) (0.11-0.59) K/uL Eos # (Auto) (0-0.5) K/uL Baso # (Auto) (0-0.2) K/uL Reticulocyte # (0.02-0.10) 10^6/uL Immature Gran # (Auto) (0.00-0.02) K/uL Absolute Nucleated RBC (0-0) K/uL Nucleated RBC % (auto) % Sodium (136-145) mmol/L Potassium (3.5-5.1) mmol/L Chloride (98-107) mmol/L Carbon Dioxide (21-32) mmol/L Anion Gap (3-11) BUN (7-18) mg/dl Creatinine (0.6-1.2) mg/dl Est Cr Clr Drug Dosing Est GFR ( Amer) Est GFR (Non-Af Amer) BUN/Creatinine Ratio (10-20) Glucose (70-99) mg/dl Calcium (8.5-10.1) mg/dl Total Bilirubin (0.2-1) mg/dl AST (15-37) U/L ALT (12-78) U/L Alkaline Phosphatase (45-117) U/L Troponin I (0-0.045) ng/ml Total Protein (6.4-8.2) gm/dl Albumin (3.4-5.0) gm/dl Globulin (2.5-4.0) gm/dl Albumin/Globulin Ratio (0.9-2) HCG, Qual (Negative) COVID-19 Eval Order CovFluRsv at [facility] SARS-CoV-2 (PCR) NEGATIVE (Negative) Influenza Type A (PCR) Negative (Neg) Influenza Type B (PCR) Negative (Neg) RSV (RT-PCR) Negative (Neg) Diagnostic Findings CXR - by my interpretation, no active process. No infiltrate, PTX or evidence of failure ECG Additional Comments: EKG with NSR at 85, normal axis, WP=766, QRS=72, AWz=661, early repolarization. Unchanged from prior study. PG Care Time/CCT Total # of Minutes Spent Total Time Spent with Patient: Total time spent is greater than 50% in coordination of care (as documented) at patient's floor/unit and/or counseling patient: Coding Level of Care Code 40091 Initial Inpt Care Lvl 3 Diagnoses Sickle cell anemia with pain D57.00 Positive Lyme disease serology R76.8 Depression F32.9 Depression Type: major depressive disorder Major depression recurrence: unspecified whether recurrent Active/Remission status: remission status unspecified GERD (gastroesophageal reflux disease) K21.9 Esophagitis presence: esophagitis presence not specified (1) Depression Depression Type: major depressive disorder Major depression recurrence: unspecified whether recurrent Active/Remission status: remission status unspecified Qualified Code(s): F32.9 - Major depressive disorder, single episo de, unspecified (2) GERD (gastroesophageal reflux disease) Esophagitis presence: esophagitis presence not specified Qualified Code(s): K21.9 - Gastro-esophageal reflux disease without esophagitis
[2020-05-16] MEDS: HYDROmorphone INJ 0.5 MG/0.5 ML SYR IV PRN ×3 (02:31→11:12)
[2020-05-16] MEDS: SODIUM CHLORIDE 0.45 % 1,000 ML IV SCH ×3 (02:32→23:39)
--- NOTE | 2020-05-16 07:15 | XRay Report ---
XR chest 1V portable CLINICAL HISTORY: Chest Pain COMPARISON STUDY: Chest radiograph April 25, 2020. FINDINGS: Lung volumes are normal. Lungs are clear. There is no pneumothorax or pleural effusion. Car diac size is normal. Mediastinal contours are normal. There is no evidence for pulmonary edema. IMPRESSION: No acute cardiopulmonary findings. ACT 112: Negative or not required by law. Electronically signed by: Carl Jay M.D. 05/16/2020 7:14 AM
[2020-05-16] MEDS: HYDROXYUREA 500 MG CAP PO SCH ×2 (07:56→21:46)
[2020-05-16] MEDS: ONDANSETRON INJ 2 MG/ML 2 ML VIAL IV PRN ×2 (13:23→19:36)
[2020-05-16] MEDS ORDERED: PROCHLORPERAZINE 10 MG in SYRINGE 8 ML IV PRN (13:24)
[2020-05-16] MEDS ORDERED: PROMETHAZINE HCL 6.25 MG in SODIUM CHLORIDE 0.9% 50 ML IV PRN (13:24)
[2020-05-16] MEDS: MoRPHine SULFATE 10 MG/ML CARP/VIAL IV PRN ×4 (14:18→23:40)
--- NOTE | 2020-05-16 15:03 | Electrocardiogram Report ---
Test Reason : Blood Pressure : / mmHG Vent. Rate : 085 BPM Atrial Rate : 085 BPM P-R Int : 202 ms QRS Dur : 072 ms QT Int : 370 ms P-R-T Axes : 063 066 048 degrees QTc Int : 440 ms Poor data quality, interpretation may be adversely affected Normal sinus rhythm Possible Left atrial enlargement Early repolarization Borderline ECG When compared with ECG of 07-MAY-2020 23:21, No significant change was found Confirmed by Mello Pedersen ([id number]) on 05/16/2020 3:03:08 PM Referred By: REFERRED SELF Confirmed By:Mello Pedersen
[2020-05-16] MEDS ORDERED: NALOXONE HCL 0.4 MG/1 ML VIAL/CARP IV PRN (18:38)
--- NOTE | 2020-05-16 19:06 | Communication Note ---
Date of Service: May 16, 2020 seen in f/u from early AM admit pain - notes dilauded usually makes her more nauseated. morphine a little less so - wonders about switch. still nauseated too - zofran not helping enough sickle cell vasocclusive pain episode -essentially ongoing -perri discussion w pt - feel she would benefit from heme input, personality differences preclude therapeutic relationship w CCP, [facility] contacted but they declined to see/noted they are not doing inpatient consults at this time. discussed looking wider for sickle cell physicians, although transportation will be difficult as outpt - she does not want inpatient transfer at this time. offered empathy and support, ongoing supportive care
[2020-05-16] MEDS: busPIRone 15 MG TAB PO SCH (21:46)
[2020-05-16] MEDS: FOLIC ACID 1 MG TAB PO SCH (21:46)
[2020-05-16] MEDS: DULoxetine HCL 60 MG CAP PO SCH (21:47)
[2020-05-16] MEDS: PANTOprazole 40 MG TAB PO SCH (21:47)
[2020-05-16] MEDS: oxyCODONE/ACETAMINOPHEN 5mg/325mg TAB PO PRN (21:50)
[2020-05-17] MEDS: MoRPHine SULFATE 10 MG/ML CARP/VIAL IV PRN ×4 (05:44→19:50)
[2020-05-17 06:24] LABS: Hematocrit (blood only) 24.8 % (37-47); Hemoglobin 8.7 g/dL (12.0-16.0); Mean Corpuscular Hemoglobin 36.9 pg (25-34); Mean Corpuscular Hgb Conc 35.1 g/dL (32-36); Mean Corpuscular Volume 105.1 fL (80-100); Mean Platelet Volume 9.1 fL (7.4-10.4); Platelet Count 350 K/uL (130-400); RDW Coefficient of Variation 19.1 % (11.5-14.5); RDW Standard Deviation 72.7 fL (36.4-46.3); Red Blood Count 2.36 M/uL (4.2-5.4); White Blood Count 5.93 K/uL (4.8-10.8)
[2020-05-17 06:59] LABS: BUN Creatinine Ratio 6.5 (10-20); Blood Urea Nitrogen 4 mg/dl (7-18); Calcium 9.1 mg/dl (8.5-10.1); Carbon Dioxide 26 mmol/L (21-32); Chloride 110 mmol/L (98-107); Creatinine Clr Calc Pharmacy 174.9 ml/min; Est GFR (African American) > 150.0; Est GFR (Non-African American) 134.1; Glucose 80 mg/dl (70-99); Potassium 3.9 mmol/L (3.5-5.1); Sodium 139 mmol/L (136-145)
--- NOTE | 2020-05-17 07:05 | Hospitalist Progress Note ---
Date of Service May 17, 2020 Assessment & Plan (1) Sickle cell anemia with pain: James Early is a 19yo female with history of sickle cell anemia presenting with acute pain secondary to sickle cell crisis, that has been intermittent and persistent over the last several months. Sickle Cell Anemia with pain: -continuing supportive measures at this time -increased pain regimen to Morphine 8mg Q2h, with Oxycodone 5mg Q4h -continue to monitor for ACS symptoms in the setting of sickle crisis -continue chronic treatment regimen at this time -discussed potential for referral/transition of hematologic care to [facility] or [facility] given their larger Sickle Cell clinics Positive Lyme serology: -previously noted, was to complete 14 day course of Doxycycline, but realized that had one additional day of treatment left -ordered final two doses of doxycycline for completed treatment today Diet: regular diet CODE STATUS: Full code (2) Positive Lyme disease serology: Admission and Anticipated Discharge Date Admission Date: May 16, 2020 Supervising Physician Co-Signing Physician Notes I personally examined the patient and verified all amaro points of history and exam, discussed case, and agree with decision making with Dr Thompson. Pain doing better with increasing morphine. Appreciates attempts to coordinate hematology care. Case discussed with PCP as well. Vitals noted, in general she is awake and alert pleasant no distress. Earlier whenever I saw her shortly after the escalation of morphine dosing she was sleeping. Breathing unlabored no accessory muscle use good effort. Skin shows no rashes no pallor or icterus. Neuro shows no focal deficits. Sickle cell vaso-occlusive crisis -Seems to be showing a little bit of improvement. Hemoglobin 8.7, no clear indication for transfusion at this time. Continue hydroxyurea 1000 mg twice daily. Reaching out to sickle cell clinics to try to help facilitate/coordinate outpatient hematology follow-up. Continue supportive care. Otherwise as above. Subjective James is continuing to have sickle cell pain despite the alterations to pain regimen at this time, feels like her pain is consistently sitting >6/10 despite the medications, with the most of her pain being in her upper back and upper thighs. Not having any chest pain, shortness of breath, abdominal pain, changes in vision. Review of Systems Review of Systems: All systems reviewed & are unremarkable except as noted in Subjective Physical Exam Constitutional: WD/WN, vitals as above Eyes: PERRL, conjunctivae normal, anicteric sclerae Respiratory: normal respiratory effort; no respiratory distress, no labored breathing, no cough and no audible wheezes Cardiovascular: RRR, no murmur, no edema Gastrointestinal (Abdomen): normal bowel sounds, soft, nontender, no hepatosplenomegaly Musculoskeletal: Extremities: extremities normal to inspection; no joint enlargement Skin: no rashes, warm and dry Psychiatric: Orientation: alert, oriented x 3 and cooperative Results & Data Results & Data ([facility]) Vital Signs (Past 12 Hours) Vital Signs Temp Pulse Resp BP Pulse Ox 05/16/20 22:49 36.5 C 80 16 102/64 97 Laboratory Results 05/17/20 05/17/20 Range/Units 05:25 05:25 WBC 5.93 (4.8-10.8) K/uL RBC 2.36 L (4.2-5.4) M/uL Hgb 8.7 L (12.0-16.0) g/dL Hct 24.8 L (37-47) % MCV 105.1 H (80-100) fL MCH 36.9 H (25-34) pg MCHC 35.1 (32-36) g/dL RDW Std Deviation 72.7 H (36.4-46.3) fL RDW Coeff of Nando 19.1 H (11.5-14.5) % Plt Count 350 (130-400) K/uL MPV 9.1 (7.4-10.4) fL Immature Gran % (Auto) 0.2 % Neut % (Auto) 30.2 % Lymph % (Auto) 60.7 % Lander % (Auto) 6.4 % Eos % (Auto) 2.2 % Baso % (Auto) 0.3 % Neut # (Auto) 1.79 (1.4-6.5) K/uL Lymph # (Auto) 3.60 H (1.2-3.4) K/uL Lander # (Auto) 0.38 (0.11-0.59) K/uL Eos # (Auto) 0.13 (0-0.5) K/uL Baso # (Auto) 0.02 (0-0.2) K/uL Immature Gran # (Auto) 0.01 (0.00-0.02) K/uL Polychromasia 1+ Anisocytosis Present Macrocytosis Present Sodium 139 (136-145) mmol/L Potassium 3.9 (3.5-5.1) mmol/L Chloride 110 H (98-107) mmol/L Carbon Dioxide 26 (21-32) mmol/L Anion Gap 3.0 (3-11) BUN 4 L (7-18) mg/dl Creatinine 0.55 L (0.6-1.2) mg/dl Est Cr Clr Drug Dosing 174.9 ml/min Est GFR ( Amer) > 150.0 Est GFR (Non-Af Amer) 134.1 BUN/Creatinine Ratio 6.5 L (10-20) Glucose 80 (70-99) mg/dl Calcium 9.1 (8.5-10.1) mg/dl Resident Activity Tracking Resident Involvement: Resident Care Provided Care Provided: Adult [facility]
[2020-05-17 07:52] LABS: Anisocytosis Present; Basophils # (auto) 0.02 K/uL (0-0.2); Basophils % (auto) 0.3 %; Eosinophils # (auto) 0.13 K/uL (0-0.5); Eosinophils % (auto) 2.2 %; Immature Granulocytes # (auto) 0.01 K/uL (0.00-0.02); Immature Granulocytes % (auto) 0.2 %; Lymphocytes % (auto) 60.7 %; Macrocytosis Present; Monocytes # (auto) 0.38 K/uL (0.11-0.59); Monocytes % (auto) 6.4 %; Neutrophils # (auto) 1.79 K/uL (1.4-6.5); Neutrophils % (auto) 30.2 %; Polychromasia 1+
[2020-05-17] MEDS ORDERED: MoRPHine SULFATE 2 MG/ML CARP ONE ×2 (07:58→10:28)
[2020-05-17] MEDS: HYDROXYUREA 500 MG CAP PO SCH ×2 (08:01→20:37)
[2020-05-17] MEDS: DOXYCYCLINE HYCLATE 100 MG CAP PO SCH ×2 (12:14→20:37)
--- NOTE | 2020-05-17 18:20 | Billing Data ---
Date of Service May 17, 2020 Coding Level of Care Code 35851 Subseq Hosp Care Lvl 3
--- NOTE | 2020-05-17 20:23 | XRay Report ---
XR chest 2V PA/lateral HISTORY: 19 years-old Female chest pain acute chest pain with cough and shortness of breath COMPARISON: 05/15/2020 TECHNIQUE: PA and lateral views of the chest FINDINGS: Cardiomediastinal and hilar silhouettes are within normal limits. No pneumothorax, pleural effusion, airspace consolidation or overt pulmonary edema. H shaped vertebral of the thoracic spine. IMPRESSION: 1. No acute process. 2. Skeletal findings suggestive of sickle cell disease. ACT 112: Negative or not required by law. The above report was generated using voice recognition software. It may contain grammatical, syntax o r spelling errors. Electronically signed by: Arturo Jennings M.D. 05/17/2020 8:21 PM
[2020-05-17 20:24] LABS: Hematocrit (blood only) 23.5 % (37-47); Hemoglobin 8.5 g/dL (12.0-16.0); Mean Corpuscular Hemoglobin 37.4 pg (25-34); Mean Corpuscular Volume 103.5 fL (80-100); Mean Platelet Volume 8.9 fL (7.4-10.4); Nucleated RBC # (auto) 0.03 K/uL (0-0); Nucleated RBC % (auto) 0.4 %; Platelet Count 321 K/uL (130-400); RDW Coefficient of Variation 18.9 % (11.5-14.5); RDW Standard Deviation 72.1 fL (36.4-46.3); Red Blood Count 2.27 M/uL (4.2-5.4); Reticulocyte % 8.1 % (0.5-2.0); Reticulocytes # 0.18 10^6/uL (0.02-0.10); White Blood Count 6.14 K/uL (4.8-10.8)
[2020-05-17] MEDS ORDERED: ENOXAPARIN INJ 40 MG/0.4 ML SYR SQ ONE (20:30)
[2020-05-17] MEDS: busPIRone 15 MG TAB PO SCH (20:37)
[2020-05-17] MEDS: PANTOprazole 40 MG TAB PO SCH (20:37)
[2020-05-17] MEDS: FOLIC ACID 1 MG TAB PO SCH (20:37)
[2020-05-17] MEDS: DULoxetine HCL 60 MG CAP PO SCH (20:37)
[2020-05-17] MEDS: D5W AND 1/2NSS 1,000 ML IV SCH (20:45)
[2020-05-17 20:52] LABS: Mean Corpuscular Hgb Conc 36.2 g/dL (32-36)
[2020-05-17 20:53] LABS: Anisocytosis Present; Basophils # (auto) 0.04 K/uL (0-0.2); Basophils % (auto) 0.7 %; Eosinophils # (auto) 0.21 K/uL (0-0.5); Eosinophils % (auto) 3.4 %; Lymphocytes # (auto) 3.32 K/uL (1.2-3.4); Lymphocytes % (auto) 54.1 %; Monocytes # (auto) 0.35 K/uL (0.11-0.59); Monocytes % (auto) 5.7 %; Neutrophils # (auto) 2.22 K/uL (1.4-6.5); Neutrophils % (auto) 36.1 %; Polychromasia 1+
[2020-05-17] MEDS ORDERED: MoRPHine SULFATE 4 MG/ML 1 ML CARP\\VIAL IV STA (20:55)
--- NOTE | 2020-05-17 23:48 | Communication Note ---
Date of Service: May 17, 2020 Notified by nursing at 19:30 that patient was having crushing chest pain that radiated to her shoulders bilaterally and was an 8/10 pain. Went up to evaluate the patient who was laying flat in her bed noting chest pain mid-sternum that was radiating up her neck, to her shoulders, and into her back bilateral. She was also noting feeling short of breath and was having difficulty taking full deep breaths. Patient was due for her pain medication of 8mg Morphine at this time. Exam: Gen: Anxious appearing in acute distress Heart: RRR, no murmurs Lungs: Frontal lung sounds were CTA initially (pt unable to sit up due to pain), after pain was better controlled repeat exam showed lungs which were CTA in all sharma without crackles, wheezes, or rales Plan: -Suspect due to Acute Chest Syndrome with patient's hx of Sickle Cell, though also with concerns for Acute Coronary Syndrome with her new onset crushing chest pain -Immediately ordered for stat EKG which showed no obvious signs of ST T-wave changes or other signs of current acute CT -Troponin negative -CBC with diff and Reticulocyte count relatively unchanged from morning labs -CXR without obvious acute pathology -Blood cultures and Sputum cultures drawn in setting of ACS, though suspect they will be negative. -Without obvious signs of infection, no empiric antibiotics were started -Patient remained with O2 saturations >94% on RA and did not require oxygen supplementation. -Patient was given Morphine 8mg IV which minimal improvement of pain, 1/2 hour later given another 4mg IV morphine which reduced her pain to 2/10. -Started on D5W 1/2 NSS at 100ml/hr, can reduce as patients pain improves and she increases PO intake. -Did have discussion with patient in regards to transfer to a center that would offer Erythrocytapheresis and exchange transfusions, though she declined at this time and preferred to continue treatment here. -As noted in prior documentation, patient would likely benefit from further Hematology input and care at [facility] Sickle Cell clinics Resident Activity Tracking Resident Involvement: Resident Care Provided and Investigator Narcotics Coverage Note Care Provided: Adult Hospital Medicine
[2020-05-18] MEDS: MoRPHine SULFATE 10 MG/ML CARP/VIAL IV PRN ×9 (00:22→19:49)
[2020-05-18] MEDS: oxyCODONE/ACETAMINOPHEN 5mg/325mg TAB PO PRN (01:46)
[2020-05-18] MEDS: D5W AND 1/2NSS 1,000 ML IV SCH ×2 (06:44→16:36)
[2020-05-18] MEDS: HYDROXYUREA 500 MG CAP PO SCH ×2 (09:49→19:27)
--- NOTE | 2020-05-18 10:44 | Electrocardiogram Report ---
Test Reason : Blood Pressure : / mmHG Vent. Rate : 070 BPM Atrial Rate : 070 BPM P-R Int : 222 ms QRS Dur : 092 ms QT Int : 392 ms P-R-T Axes : 051 065 040 degrees QTc Int : 423 ms Sinus rhythm with 1st degree A-V block Otherwise normal ECG When compared with ECG of 15-MAY-2020 21:18, No significant change was found Confirmed by Slick Simmons ([id number]) on 05/18/2020 10:44:09 AM Referred By: REFERRED SELF Confirmed By:Torey Simmons
[2020-05-18] MEDS: ONDANSETRON INJ 2 MG/ML 2 ML VIAL IV PRN (11:50)
--- NOTE | 2020-05-18 13:41 | Discharge Summary ---
Date of Service May 18, 2020 Admission HPI Per Admitting Provider Ms. Early is a 19yo female with history of sickle cell anemia presenting with acute pain secondary to sickle cell crisis. Patient is well known to the Hospitalist service and has been admitted multiple times for similar symptoms. Most recently 04/18/20 - 05/01/20. Patient was treated with IV fluids and pain medication at that time. She was evaluated by Hematology. Patient felt well when she was discharged home. She reports increasing pain over the last week. Her pain is full body, mostly in her legs and chest. She has some mild shortness of breath as well. She has some mild nausea Denies fever/chills/cough. Denies abdominal pain, vomiting, diarrhea. No additional complaints Reports being compliant with her home medications Reports stress is well managed Thinks the cold weather possibly precipitated her pain crisis ER Course: Tylenol, Dilaudid, Zofran Principal Diagnosis Sickle Cell Anemia with pains/crisis Discharge Exam Constitutional WD/WN, vitals as above Eyes PERRL, conjunctivae normal, anicteric sclerae Respiratory normal respiratory effort; no respiratory distress, no labored breathing, no cough and no audible wheezes Cardiovascular RRR, no murmur, no edema Gastrointestinal (Abdomen) normal bowel sounds, soft, nontender, no hepatosplenomegaly Musculoskeletal Extremities: extremities normal to inspection; no joint enlargement Skin no rashes, warm and dry Psychiatric Orientation: alert, oriented x 3 and cooperative Discharge Data Allergies Allergy/AdvReac Type Severity Reaction Status Date / Time No Known Allergies Allergy Verified 05/15/20 22:12 Consultations 05/16/20 10:12 Consult Hematology Routine Hospital Course (1) Sickle cell anemia with pain: James Early is a 19yo female with history of sickle cell anemia presenting with acute pain secondary to sickle cell crisis, that has been intermittent and persistent over the last several months. Sickle Cell Anemia with pain: -overnight had concerns for acute chest symptoms -EKG negative -troponin negative -CXR negative -CBC with noted anemia but relatively unchanged from previous -pain regimen Morphine 8mg Q2h, with Oxycodone 5mg Q4h while here in hospital -continue to monitor for ACS symptoms in the setting of sickle crisis -transferring to [facility]; Dr. Wagner is accepting attending physician Positive Lyme serology: -previously noted; completed 14 day course of Doxycycline Diet: Regular CODE STATUS: Full Code Total Time Total Time Spent Total Time Spent (In Minutes): <30 Discharge Plan Discharge Items Patient Disposition: Transfer Acute Care Hospital Reason For Visit: SICKLE CELL CRISIS Discharge Diagnosis: sickle cell crisis Condition on Discharge: Good Activity: Per Instructions section Non-emergency contact: Primary Care Provider Call non-emergency contact if: you have any medication questions, your symptoms worsen and your pain is worsening Follow-up/Referrals: Zamzam Bailey MD [Primary Care Provider] - Diet: Regular Addtl Attending Provider Instructions: James Early is a 19yo female with history of sickle cell anemia presenting with acute pain secondary to sickle cell crisis, that has been intermittent and persistent over the last several months. Being transferred to [facility] for continued management of Sickle Cell anemia with pains/crisis. Pending Studies at Discharge: No Stand-Alone Forms: My [facility] Skilled Items Patient informed of condition?: Yes DNR: No Discharge Level of Care: Other Communicable Disease: No Discharge Prognosis: Stable Lines: None Urinary Catheter: No Medications and DC Order Prescriptions: Continued folic acid 1 mg Tablet 2 mg PO HS RF: 0 pantoprazole 40 mg tablet,delayed release (DR/EC) 40 mg PO HS RF: 0 buspirone 15 mg tablet 45 mg PO HS RF: 0 duloxetine 60 mg capsule,delayed release(DR/EC) 60 mg PO HS RF: 0 hydroxyurea 500 mg Capsule 1,000 mg PO BID 30 Days Qty: 120 RF: 1 oxycodone-acetaminophen 5-325 mg tablet 1 tab PO TID PRN (Reason: Pain) RF: 0 Discharge Orders: Discharge Order (Routine); Ordered 05/18/20 Ordered By: Jono Thompson Admission Data Admit Date/Time: 05/16/20 00:31 Attending Provider: Cesar Kerr Admit Provider: Jaymie Castrejon Primary Care Provider: Zamzam Bailey Other Providers: Jaymie Castrejon ; Toni Greenwood Other Interventions: Discharge Summary Assessment (RN) Last Done: 05/18/20 19:34 Supervising Physician Co-Signing Physician Notes I personally examined the patient and verified all amaro points of history and exam, discussed case, and agree with decision making with Dr Thompson. See overnight coverage note. Had chest pain. Patient now willing for transfer for active hematology involvement. Vitals noted, in general she appears very fatigued. Breathing unlabored no accessory muscle use good effort. Skin shows no rashes no pallor or icterus. Neuro shows no focal deficits. Sickle cell vaso-occlusive crisis -Abrupt worsening with concern towards developing acute chest overnight. See previous documentation in regards to local hematology, but without being able to have a therapeutic relationship locally with hematology, and given the complexity and recurrence of her case, most appropriate to transfer for inpatient hematology management. Patient in agreement, transfer set up. Resident Activity Tracking Resident Involvement: Resident Care Provided Care Provided: Adult Hospital Medicine
--- NOTE | 2020-05-18 14:55 | Hospitalist Progress Note ---
Date of Service May 18, 2020 Assessment & Plan (1) Sickle cell anemia with pain: James Early is a 19yo female with history of sickle cell anemia presenting with acute pain secondary to sickle cell crisis, that has been intermittent and persistent over the last several months. Sickle Cell Anemia with pain: -overnight had concerns for acute chest symptoms -EKG negative -troponin negative -CXR negative -CBC with noted anemia but relatively unchanged from previous -pain regimen Morphine 8mg Q2h, with Oxycodone 5mg Q4h while here in hospital -continue to monitor for ACS symptoms in the setting of sickle crisis -transfering to [facility]; Dr. Shell accepting attending hospitalist Positive Lyme serology: -previously noted; completed 14 day course of Doxycycline Diet: Regular CODE STATUS: Full Code Admission and Anticipated Discharge Date Admission Date: May 16, 2020 Review of Systems Review of Systems: All systems reviewed & are unremarkable except as noted in Subjective Physical Exam Constitutional: WD/WN, vitals as above Eyes: PERRL, conjunctivae normal, anicteric sclerae Respiratory: normal respiratory effort; no respiratory distress, no labored breathing, no cough and no audible wheezes Cardiovascular: RRR, no murmur, no edema Gastrointestinal (Abdomen): normal bowel sounds, soft, nontender, no hepatosplenomegaly Musculoskeletal: Extremities: extremities normal to inspection; no joint enlargement Skin: no rashes, warm and dry Psychiatric: Orientation: alert, oriented x 3 and cooperative Results & Data Results & Data ([facility]) Vital Signs (Past 12 Hours) Vital Signs Temp Pulse Resp BP Pulse Ox 05/18/20 07:44 36.8 C 76 16 95/61 L 95
[2020-05-18] MEDS ORDERED: MoRPHine SULFATE CR 15 MG TABCR PO SCH ×2 (16:30→18:00)
[2020-05-18] MEDS: busPIRone 15 MG TAB PO SCH (19:27)
[2020-05-18] MEDS: FOLIC ACID 1 MG TAB PO SCH (19:27)
[2020-05-18] MEDS: PANTOprazole 40 MG TAB PO SCH (19:27)
[2020-05-18] MEDS: DULoxetine HCL 60 MG CAP PO SCH (19:27)
--- NOTE | 2020-05-18 20:18 | Billing Data ---
Date of Service May 18, 2020 Coding Level of Care Code D/C Day Management <30 mins
[2020-05-18] MEDS ORDERED: ENOXAPARIN INJ 40 MG/0.4 ML SYR SQ SCH (21:00)
== END 2020-05-18 19:55 | disposition short-term general hospital (02) | DRG 812 ==
LOC: ED 20:39 → SUATTDRO 05-16 00:31 → 3N 05-16 00:31

== ENCOUNTER 2020-06-27 14:12 | Inpatient (IN) ==
[2020-06-27] MEDS ORDERED: MoRPHine SULFATE 4 MG/ML 1 ML CARP\\VIAL IV STA ×4 (15:05→19:07)
[2020-06-27] MEDS ORDERED: ONDANSETRON INJ 2 MG/ML 2 ML VIAL IV STA ×2 (15:05→17:07)
--- NOTE | 2020-06-27 15:13 | Emergency Department Note ---
History of Present Illness General Chief complaint: Illness Stated complaint: SICKLE CELL CRISIS/BODY PAIN CHEST/BACK ARMS Time Seen by Provider: 06/27/20 14:49 History of Present Illness Maximum Pain Intensity: 7 This is a 19-year-old female that presents to the emergency department via private vehicle with complaints of "sickle cell crisis, body pain, chest, back, arms". The patient notes a history of sickle cell anemia and notes that today's presentation does feel similar to previous sickle cell crises. The patient notes that she has been experiencing current crisis for the past 2 weeks. She states that she was here in the ED recently we did have to leave to complete school finals and now returns with persistence of pain. At home she medicates with tramadol 100 mg p.o. twice daily and Percocet 3 times daily as needed. Patient notes that despite adequate regimen of these her pain is still persistent and severe. Patient denies any shortness of breath but does note elizabet e chest pain. She denies any headache. She feels nauseated. No fever. Current pain 08/26. Home Medications Medication Instructions Recorded Confirmed Type folic acid 2 mg PO HS 11/18/19 06/27/20 History buspirone 45 mg PO HS 01/22/20 06/27/20 History pantoprazole 40 mg PO HS 01/22/20 06/27/20 History duloxetine 60 mg PO HS 04/17/20 06/27/20 History hydroxyurea 1,000 mg PO BID 30 Days #120 cap 05/01/20 06/27/20 Rx oxycodone-acetaminophen 1 tab PO TID PRN 05/07/20 06/27/20 History Allergies Allergy/AdvReac Type Severity Reaction Status Date / Time No Known Allergies Allergy Verified 06/27/20 15:42 Past Med/Surg History Medical History Borderline personality disorder Depression Murmur, cardiac Nausea Pneumonia Pseudoseizures Seizure-like activity Sickle cell anemia Sickle cell crisis Suicide gesture Surgical History No pertinent past surgical history Family History Mother Hypertension Father Ulcer Other Family history non-contributory Social History Smoking Status: Never smoker Tobacco Type: E-cigarettes / Vaping Second Hand Exposure: Yes; Do You Dip or Chew Tobacco: No; Tobacco Cessation Education Requested by Patient: No Hx Alcohol Use: Yes Alcohol type: hard liquor Hx Substance Use: No Preferred Language: Bangladeshi Communication Ability: Effective Capsule Filler Required: No Beliefs That Will Affect Care: None marital status: Single Current Living Situation: Other Current Living Situation Comment: apartment with roommates 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 current occupation: [employer] Other Information That Helps Us Care for You: No Feels Safe at Home: Yes Safety Concerns: Feels Safe At This Time Assistive Devices: Glasses Review of Systems A total of 10 systems reviewed and were otherwise negative Physical Exam Vital Signs Vital Signs - 24 hr 06/27/20 14:30 06/27/20 15:05 06/27/20 15:15 Temperature 36.3 C L Temperature Source Temporal Artery Scan Pulse Rate 94 H 88 Pulse Rate [Apical] Pulse Rate from SpO2 Sensor Pulse Rhythm Regular Pulse Strength Normal Respiratory Rate 18 22 Respiratory Effort / Characteristics Non-Labored Spontaneous Respiratory Depth Normal Respiratory Pattern Regular Blood Pressure 113/81 Blood Pressure [Left Arm] Blood Pressure Mean 91 Blood Pressure Mean [Left Arm] Blood Pressure Position Sitting Pulse Oximetry 99 97 97 Oxygen Delivery Method Room Air Room Air Room Air Sepsis Recent Fever Within 48 Hours No Sepsis New/Unexplained Change in Mental Status No Sepsis Action Taken by Nursing No Action Required 06/27/20 15:20 06/27/20 15:30 06/27/20 15:40 Temperature Temperature Source Pulse Rate 88 80 86 Pulse Rate [Apical] Pulse Rate from SpO2 Sensor Pulse Rhythm Pulse Strength Respiratory Rate 23 21 17 Respiratory Effort / Characteristics Respiratory Depth Respiratory Pattern Blood Pressure Blood Pressure [Left Arm] Blood Pressure Mean Blood Pressure Mean [Left Arm] Blood Pressure Position Pulse Oximetry 97 97 97 Oxygen Delivery Method Room Air Room Air Room Air Sepsis Recent Fever Within 48 Hours Sepsis New/Unexplained Change in Mental Status Sepsis Action Taken by Nursing 06/27/20 15:50 06/27/20 16:00 06/27/20 16:12 Temperature Temperature Source Pulse Rate 79 81 89 Pulse Rate [Apical] Pulse Rate from SpO2 Sensor Pulse Rhythm Pulse Strength Respiratory Rate 18 16 13 Respiratory Effort / Characteristics Respiratory Depth Respiratory Pattern Blood Pressure Blood Pressure [Left Arm] Blood Pressure Mean Blood Pressure Mean [Left Arm] Blood Pressure Position Pulse Oximetry 97 98 Oxygen Delivery Method Room Air Room Air Sepsis Recent Fever Within 48 Hours Sepsis New/Unexplained Change in Mental Status Sepsis Action Taken by Nursing 06/27/20 16:20 06/27/20 16:21 06/27/20 16:30 Temperature Temperature Source Pulse Rate 79 82 76 Pulse Rate [Apical] Pulse Rate from SpO2 Sensor 79 81 77 Pulse Rhythm Pulse Strength Respiratory Rate 19 19 13 Respiratory Effort / Characteristics Respiratory Depth Respiratory Pattern Blood Pressure 99/61 L 99/61 L 100/65 Blood Pressure [Left Arm] Blood Pressure Mean 73 73 76 Blood Pressure Mean [Left Arm] Blood Pressure Position Pulse Oximetry 99 99 98 Oxygen Delivery Method Sepsis Recent Fever Within 48 Hours Sepsis New/Unexplained Change in Mental Status Sepsis Action Taken by Nursing 06/27/20 16:40 06/27/20 16:49 06/27/20 16:50 Temperature Temperature Source Pulse Rate 77 78 Pulse Rate [Apical] 77 Pulse Rate from SpO2 Sensor 77 78 Pulse Rhythm Pulse Strength Respiratory Rate 14 18 16 Respiratory Effort / Characteristics Respiratory Depth Respiratory Pattern Blood Pressure Blood Pressure [Left Arm] 100/65 Blood Pressure Mean Blood Pressure Mean [Left Arm] 76 Blood Pressure Position Pulse Oximetry 99 97 98 Oxygen Delivery Method Room Air Sepsis Recent Fever Within 48 Hours Sepsis New/Unexplained Change in Mental Status Sepsis Action Taken by Nursing 06/27/20 17:00 06/27/20 17:10 06/27/20 17:20 Temperature Temperature Source Pulse Rate 76 74 75 Pulse Rate [Apical] Pulse Rate from SpO2 Sensor 76 74 75 Pulse Rhythm Pulse Strength Respiratory Rate 13 13 13 Respiratory Effort / Characteristics Respiratory Depth Respiratory Pattern Blood Pressure Blood Pressure [Left Arm] Blood Pressure Mean Blood Pressure Mean [Left Arm] Blood Pressure Position Pulse Oximetry 99 99 99 Oxygen Delivery Method Sepsis Recent Fever Within 48 Hours Sepsis New/Unexplained Change in Mental Status Sepsis Action Taken by Nursing 06/27/20 17:29 06/27/20 17:30 06/27/20 17:40 Temperature Temperature Source Pulse Rate 80 77 75 Pulse Rate [Apical] Pulse Rate from SpO2 Sensor 82 76 75 Pulse Rhythm Pulse Strength Respiratory Rate 22 16 17 Respiratory Effort / Characteristics Respiratory Depth Respiratory Pattern Blood Pressure 118/81 Blood Pressure [Left Arm] Blood Pressure Mean 93 Blood Pressure Mean [Left Arm] Blood Pressure Position Pulse Oximetry 100 100 99 Oxygen Delivery Method Room Air Sepsis Recent Fever Within 48 Hours Sepsis New/Unexplained Change in Mental Status Sepsis Action Taken by Nursing 06/27/20 17:50 06/27/20 18:00 06/27/20 18:01 Temperature Temperature Source Pulse Rate 73 83 79 Pulse Rate [Apical] Pulse Rate from SpO2 Sensor 75 81 79 Pulse Rhythm Pulse Strength Respiratory Rate 15 18 13 Respiratory Effort / Characteristics Respiratory Depth Respiratory Pattern Blood Pressure 114/87 Blood Pressure [Left Arm] Blood Pressure Mean 96 Blood Pressure Mean [Left Arm] Blood Pressure Position Pulse Oximetry 100 95 100 Oxygen Delivery Method Room Air Room Air Room Air Sepsis Recent Fever Within 48 Hours Sepsis New/Unexplained Change in Mental Status Sepsis Action Taken by Nursing 06/27/20 18:10 Temperature Temperature Source Pulse Rate 77 Pulse Rate [Apical] Pulse Rate from SpO2 Sensor Pulse Rhythm Pulse Strength Respiratory Rate 16 Respiratory Effort / Characteristics Respiratory Depth Respiratory Pattern Blood Pressure Blood Pressure [Left Arm] Blood Pressure Mean Blood Pressure Mean [Left Arm] Blood Pressure Position Pulse Oximetry 99 Oxygen Delivery Method Room Air Sepsis Recent Fever Within 48 Hours Sepsis New/Unexplained Change in Mental Status Sepsis Action Taken by Nursing VITAL SIGNS - Vital signs and nursing notes were reviewed. Stable and afebrile. GENERAL -19-year-old female appearing her stated age who is in no acute distress. Communicates well with provider and answers questions appropriately. SKIN - Without rashes. HEAD - NC/AT. EYES - PERRL with EOMI bilaterally. Sclera anicteric. Palpebral conjunctiva pink and moist with no injection noted. EARS - No deformities of external structures noted on gross examination bilaterally. NECK - Neck with FROM. No nuchal rigidity. LUNGS - Chest wall symmetric without accessory muscle use, intercostals retractions, or central cyanosis. Normal vesicular breath sounds CTA B/L. No wheezes, rales, or rhonchi appreciated. CARDIAC - RRR with S1/S2. No murmur, rubs, or gallops appreciated. ABDOMEN - Abdominal contour normal without pulsations or visible masses. BS normoactive all four quadrants. No tenderness, palpable masses, hepatosplenomegaly, or ascites noted. EXTREMITIES - No clubbing or peripheral cyanosis.+5/5 strength noted in UE/LE bilaterally. NEUROLOGIC - Cranial nerves II through XII grossly intact. PSYCH - A&Ox3 and cooperates fully with examiner. Pt is very pleasant and interacts well with examiner. Course Administered Medications Buspirone HCl (Buspirone 15 Mg Tab) 45 mg PO HS [facility] Stop: 07/27/20 20:59 Last Admin: 06/27/20 21:36 Dose: 45 mg Documented by: [id number] Duloxetine HCl (Duloxetine Hcl 60 Mg Cap) 60 mg PO HS [facility] Stop: 07/27/20 20:59 Last Admin: 06/27/20 21:36 Dose: 60 mg Documented by: [id number] Folic Acid (Folic Acid 1 Mg Tab) 2 mg PO HS [facility] Stop: 07/27/20 20:59 Last Admin: 06/27/20 21:36 Dose: 2 mg Documented by: [id number] Hydromorphone HCl (Hydromorphone Inj 0.5 Mg/0.5 Ml Syr) 0.5 mg IV Q3H PRN PRN Reason: Severe Pain Stop: 07/11/20 20:24 Last Admin: 06/27/20 22:26 Dose: 0.5 mg Documented by: [id number] Hydroxyurea (Hydroxyurea 500 Mg Cap) 1,000 mg PO BID [facility] Stop: 07/27/20 20:59 Last Admin: 06/27/20 21:36 Dose: 1,000 mg Documented by: [id number] Cosigned by: [id number] Dextrose/Sodium Chloride (D5w And 1/2nss) 1,000 mls @ 100 mls/hr IV .Q10H [facility] Stop: 07/27/20 14:59 Last Admin: 06/27/20 15:40 Dose: 100 mls/hr Documented by: [id number] Ondansetron HCl (Ondansetron Inj 2 Mg/Ml 2 Ml Vial) 4 mg IV Q6H PRN PRN Reason: Nausea And Vomiting Stop: 07/27/20 20:37 Last Admin: 06/27/20 20:55 Dose: 4 mg Documented by: [id number] Oxycodone/Acetaminophen (Oxycodone/Acetaminophen 5mg/325mg Tab) 1 tab PO TID PRN PRN Reason: Pain Stop: 07/11/20 20:24 Last Admin: 06/27/20 20:55 Dose: 1 tab Documented by: [id number] Pantoprazole Sodium (Pantoprazole 40 Mg Tab) 40 mg PO [facility] Stop: 07/27/20 20:59 Last Admin: 06/27/20 21:37 Dose: 40 mg Documented by: [id number] Tramadol HCl (Tramadol Hcl 50 Mg Tablet) 100 mg PO Q12 [facility] Stop: 07/27/20 20:59 Last Admin: 06/27/20 21:40 Dose: Not Given Documented by: [id number] Discontinued Medications Morphine Sulfate (Morphine Sulfate 4 Mg/Ml 1 Ml Carp\\Vial) 4 mg IV NOW STA Stop: 06/27/20 15:06 Last Admin: 06/27/20 15:41 Dose: 4 mg Documented by: [id number] Morphine Sulfate (Morphine Sulfate 4 Mg/Ml 1 Ml Carp\\Vial) 4 mg IV NOW STA Stop: 06/27/20 16:06 Last Admin: 06/27/20 16:13 Dose: 4 mg Documented by: [id number] Morphine Sulfate (Morphine Sulfate 4 Mg/Ml 1 Ml Carp\\Vial) 4 mg IV NOW STA Stop: 06/27/20 17:08 Last Admin: 06/27/20 17:29 Dose: 4 mg Documented by: [id number] Morphine Sulfate (Morphine Sulfate 4 Mg/Ml 1 Ml Carp\\Vial) 4 mg IV NOW STA Stop: 06/27/20 19:08 Last Admin: 06/27/20 19:13 Dose: 4 mg Documented by: [id number] Ondansetron HCl (Ondansetron Inj 2 Mg/Ml 2 Ml Vial) 4 mg IV NOW STA Stop: 06/27/20 15:06 Last Admin: 06/27/20 15:41 Dose: 4 mg Documented by: [id number] Ondansetron HCl (Ondansetron Inj 2 Mg/Ml 2 Ml Vial) 4 mg IV NOW STA Stop: 06/27/20 17:08 Last Admin: 06/27/20 17:28 Dose: 4 mg Documented by: [id number] Medical Decision Making Laboratory Data Result diagrams: 06/27/20 14:57 06/27/20 15:00 Lab Results 06/27/20 06/27/20 06/27/20 Range/Units 14:57 15:00 15:25 WBC 3.71 L (4.8-10.8) K/uL RBC 2.33 L (4.2-5.4) M/uL Hgb 9.8 L (12.0-16.0) g/dL Hct 27.1 L (37-47) % MCV 116.3 H (80-100) fL MCH 42.1 H (25-34) pg MCHC 36.2 H (32-36) g/dL RDW Std Deviation 88.3 H (36.4-46.3) fL RDW Coeff of Nando 21.0 H (11.5-14.5) % Plt Count 244 (130-400) K/uL MPV 10.5 H (7.4-10.4) fL Immature Gran % (Auto) 0.3 % Neut % (Auto) 40.4 % Lymph % (Auto) 54.7 % Foard % (Auto) 2.7 % Eos % (Auto) 1.9 % Baso % (Auto) 0.0 % Reticulocyte % (Auto) 6.3 H (0.5-2.0) % Neut # (Auto) 1.50 (1.4-6.5) K/uL Lymph # (Auto) 2.03 (1.2-3.4) K/uL Foard # (Auto) 0.10 L (0.11-0.59) K/uL Eos # (Auto) 0.07 (0-0.5) K/uL Baso # (Auto) 0.00 (0-0.2) K/uL Reticulocyte # 0.15 H (0.02-0.10) 10^6/uL Immature Gran # (Auto) 0.01 (0.00-0.02) K/uL Absolute Nucleated RBC 0.17 H (0-0) K/uL Nucleated RBC % (auto) 4.7 % Polychromasia 2+ Anisocytosis Present Macrocytosis Present Pappenheimer Bodies 1+ Sickle Cells 1+ Target Cells 2+ Sodium 136 (136-145) mmol/L Potassium 4.0 (3.5-5.1) mmol/L Chloride 106 (98-107) mmol/L Carbon Dioxide 25 (21-32) mmol/L Anion Gap 5.0 (3-11) BUN 7 (7-18) mg/dl Creatinine 0.59 L (0.6-1.2) mg/dl Est Cr Clr Drug Dosing 146.7 ml/min Est GFR ( Amer) > 150.0 Est GFR (Non-Af Amer) 131.0 BUN/Creatinine Ratio 12.4 (10-20) Glucose 78 (70-99) mg/dl Calcium 9.8 (8.5-10.1) mg/dl Magnesium 2.2 (1.8-2.4) mg/dl Total Bilirubin 1.3 H (0.2-1) mg/dl AST 17 (15-37) U/L ALT 18 (12-78) U/L Alkaline Phosphatase 87 (45-117) U/L Troponin I < 0.015 (0-0.045) ng/ml Total Protein 9.0 H (6.4-8.2) gm/dl Albumin 4.2 (3.4-5.0) gm/dl Globulin 4.7 H (2.5-4.0) gm/dl Albumin/Globulin Ratio 0.9 (0.9-2) COVID-19 Eval Order CovFluRsv at [facility] SARS-CoV-2 (PCR) (Negative) Influenza Type A (PCR) (Neg) Influenza Type B (PCR) (Neg) RSV (RT-PCR) (Neg) 06/27/20 Range/Units 15:25 WBC (4.8-10.8) K/uL RBC (4.2-5.4) M/uL Hgb (12.0-16.0) g/dL Hct (37-47) % MCV (80-100) fL MCH (25-34) pg MCHC (32-36) g/dL RDW Std Deviation (36.4-46.3) fL RDW Coeff of Nando (11.5-14.5) % Plt Count (130-400) K/uL MPV (7.4-10.4) fL Immature Gran % (Auto) % Neut % (Auto) % Lymph % (Auto) % Foard % (Auto) % Eos % (Auto) % Baso % (Auto) % Reticulocyte % (Auto) (0.5-2.0) % Neut # (Auto) (1.4-6.5) K/uL Lymph # (Auto) (1.2-3.4) K/uL Foard # (Auto) (0.11-0.59) K/uL Eos # (Auto) (0-0.5) K/uL Baso # (Auto) (0-0.2) K/uL Reticulocyte # (0.02-0.10) 10^6/uL Immature Gran # (Auto) (0.00-0.02) K/uL Absolute Nucleated RBC (0-0) K/uL Nucleated RBC % (auto) % Polychromasia Anisocytosis Macrocytosis Pappenheimer Bodies Sickle Cells Target Cells Sodium (136-145) mmol/L Potassium (3.5-5.1) mmol/L Chloride (98-107) mmol/L Carbon Dioxide (21-32) mmol/L Anion Gap (3-11) BUN (7-18) mg/dl Creatinine (0.6-1.2) mg/dl Est Cr Clr Drug Dosing ml/min Est GFR ( Amer) Est GFR (Non-Af Amer) BUN/Creatinine Ratio (10-20) Glucose (70-99) mg/dl Calcium (8.5-10.1) mg/dl Magnesium (1.8-2.4) mg/dl Total Bilirubin (0.2-1) mg/dl AST (15-37) U/L ALT (12-78) U/L Alkaline Phosphatase (45-117) U/L Troponin I (0-0.045) ng/ml Total Protein (6.4-8.2) gm/dl Albumin (3.4-5.0) gm/dl Globulin (2.5-4.0) gm/dl Albumin/Globulin Ratio (0.9-2) COVID-19 Eval Order SARS-CoV-2 (PCR) NEGATIVE (Negative) Influenza Type A (PCR) Negative (Neg) Influenza Type B (PCR) Negative (Neg) RSV (RT-PCR) Negative (Neg) Imaging Data Radiologist's Impression: Chest X-Ray 06/27/20 15:00 XR chest 1V portable CLINICAL HISTORY: chest pain COMPARISON STUDY: Chest radiograph June 22, 2020. FINDINGS: Lung volumes are normal. Lungs are clear. There is no pneumothorax or pleural effusion. Cardiac size is at the upper limits of normal. Mediastinal contours are normal. There is no evidence for pulmonary edema. IMPRESSION: No acute cardiopulmonary findings. ACT 112: Negative or not required by law. Electronically signed by: Carl Jay M.D. 06/27/2020 4:04 PM [facility] Narrative Patient was seen and evaluated as above in room C 11. Review was performed of nu rsing notes and vital signs. I did review pertinent previous visits and patient history. After obtaining a thorough history and physical examination the above work up was performed. Patient presents to us today with a well-documented history of sickle cell anemia and follows closely with hematology in [facility]. On exam the patient is nontoxic. Vital signs stable. Options of care were discussed with the patient. She asked specifically for D5 half-normal saline which I did order at a regular maintenance rate. She was also ordered IV analgesics and antiemetics. Laboratory studies were also ordered in addition to a chest x-ray and EKG. there is decreased white blood cell count at 3.71 with hemoglobin at 9.8. Reticulocyte count 0.15. Metabolic panel does not reveal any emergent process. Mild T bili elevation at 1.3. Troponin negative. Covid testing negative. Patient had a negative test on 06/22/2020. Patient does not have any evidence of infection on exam. Patient does note that she has had symptoms of current crisis for about 2 weeks. Patient does note that when she feels to this level of severity generally she is admitted. I believe this would be reasonable. Patient does note chest pain, body pain in the setting of known sickle cell anemia. Case discussed with the hospitalist. Please refer to further documentation regarding her stay. While h ere in the ED I did order the patient several rounds of IV morphine and she was also given IV Zofran for nausea. Case was discussed with the attending physician. EKG was reviewed by myself and found to be Normal Sinus Rhythm at a rate of 82 bpm beats per minute and per my interpretation reveals no ST elevation. QTc 408. QRS 78. This was compared to EKG of June 22, 2020 and no significant change was found. An order was placed for continuous cardiac monitoring. The monitor shows a rate of 94 with sinus rhythm. GCS: 15 In the evaluation and treatment of this patient the following differential diagnoses were entertained: Sickle cell crisis, VA, PE, pericarditis, costochondritis, infectious etiology, lung others. Impression & Plan Sickle cell anemia with pain Discharge Plan Visit Data Chief Complaint: Illness Stated Complaint: SICKLE CELL CRISIS/BODY PAIN CHEST/BACK ARMS ED Provider: Ramana Almaguer ED Midlevel Provider: Francisco Del Cid Discharge Problem: Sickle cell anemia with pain Patient Disposition: Admitted As Inpatient Condition: Good Discharge Instructions Interventions: ED Discharge Assessment Last Done: 06/27/20 20:00
[2020-06-27] MEDS: D5W AND 1/2NSS 1,000 ML IV SCH (15:40)
[2020-06-27 15:51] LABS: Hematocrit (blood only) 27.1 % (37-47); Hemoglobin 9.8 g/dL (12.0-16.0); Mean Corpuscular Hemoglobin 42.1 pg (25-34); Mean Corpuscular Hgb Conc 36.2 g/dL (32-36); Mean Corpuscular Volume 116.3 fL (80-100); Mean Platelet Volume 10.5 fL (7.4-10.4); Nucleated RBC # (auto) 0.17 K/uL (0-0); Nucleated RBC % (auto) 4.7 %; Platelet Count 244 K/uL (130-400); RDW Standard Deviation 88.3 fL (36.4-46.3); Red Blood Count 2.33 M/uL (4.2-5.4); Reticulocyte % 6.3 % (0.5-2.0); Reticulocytes # 0.15 10^6/uL (0.02-0.10); White Blood Count 3.71 K/uL (4.8-10.8)
--- NOTE | 2020-06-27 16:06 | XRay Report ---
XR chest 1V portable CLINICAL HISTORY: chest pain COMPARISON STUDY: Chest radiograph June 22, 2020. FINDINGS: Lung volumes are normal. Lungs are clear. There is no pneumothorax or pleural effusion. Car diac size is at the upper limits of normal. Mediastinal contours are normal. There is no evidence for pulmonary edema. IMPRESSION: No acute cardiopulmonary findings. ACT 112: Negative or not required by law. Electronically signed by: Carl Jay M.D. 06/27/2020 4:04 PM
[2020-06-27 16:08] LABS: Alanine Aminotransferase 18 U/L (12-78); Albumin Level 4.2 gm/dl (3.4-5.0); Aspartate Aminotransferase 17 U/L (15-37); BUN Creatinine Ratio 12.4 (10-20); Blood Urea Nitrogen 7 mg/dl (7-18); Calcium 9.8 mg/dl (8.5-10.1); Carbon Dioxide 25 mmol/L (21-32); Chloride 106 mmol/L (98-107); Creatinine Clr Calc Pharmacy 146.7 ml/min; Est GFR (African American) > 150.0; Glucose 78 mg/dl (70-99); Magnesium 2.2 mg/dl (1.8-2.4); Sodium 136 mmol/L (136-145)
[2020-06-27 16:13] LABS: Albumin Globulin Ratio 0.9 (0.9-2); Alkaline Phosphatase 87 U/L (45-117); Bilirubin,Total 1.3 mg/dl (0.2-1); Globulin 4.7 gm/dl (2.5-4.0); Troponin I < 0.015 ng/ml (0-0.045)
[2020-06-27 16:22] LABS: Anisocytosis Present; Eosinophils # (auto) 0.07 K/uL (0-0.5); Eosinophils % (auto) 1.9 %; Immature Granulocytes # (auto) 0.01 K/uL (0.00-0.02); Immature Granulocytes % (auto) 0.3 %; Lymphocytes # (auto) 2.03 K/uL (1.2-3.4); Lymphocytes % (auto) 54.7 %; Macrocytosis Present; Monocytes % (auto) 2.7 %; Neutrophils % (auto) 40.4 %; Pappenheimer Bodies 1+; Polychromasia 2+; Sickle Cells 1+; Target Cells 2+
[2020-06-27 16:37] LABS: Influenza A virus by PCR Negative (Neg); Influenza B virus by PCR Negative (Neg); RSV by PCR Negative (Neg); SARS CoV2 RNA(COVID-19)Cepheid NEGATIVE (Negative)
--- NOTE | 2020-06-27 18:17 | History & Physical Report ---
Date of Service June 27, 2020 Assessment & Plan (1) Sickle cell anemia with pain: Will place patient in monitored observation Change morphine to Dilaudid 0.5 mg IV every 3 hours as needed, hopefully can wean down to oxycodone in the morning Continue tramadol 100 mg twice daily Slow IV hydration Continue hydroxyurea 1 g twice daily Continue other outpatient medications If hemoglobin drops, consider 1 unit packed red blood cells We will ask Dr. Mccoy to evaluate for further recommendations Case management, can possibly assist getting patient to specialized clinic on discharge History of Present Illness Primary Care Provider: Zamzam Bailey MD This is a 19-year-old female with past medical history of sickle cell disease that presents today complaining of sickle cell crisis. Patient is pleasant a good story. Patient is apparently been having issues over the past several months. She has had multiple admissions to this institution in April of this year and earlier in the year at [facility]. She was seen in the emergency room 06/22 but was discharged without admission as the patient was concerned about her studies. Patient is now finished her finals at school and feels that she is not signific ant enough pain to return to the emergency room. Patient's pain is widespread, she is most concerned about pain in the mid chest. She has received morphine sulfate 4 mg x 3 doses, felt the pain is subsided with the third dose. Typically she uses Percocet 5/325 3 times daily as needed along with tramadol 100 mg twice daily at home. Patient denies any shortness of breath and vitals have been stable including an O2 sat of 100% on room air. Patient exhibits significant distress with medical establishment as she is worried how she is being perceived considering her narcotic requirements. She has previously investigated receiving care at the sickle cell clinic at [place]. She is also seen Dr. Dietrich in the past but his prior notes suggest the patient has had some issues with compliance. Allergies Allergy/AdvReac Type Severity Reaction Status Date / Time No Known Allergies Allergy Verified 06/27/20 15:42 Home Medications Medication Instructions Recorded Confirmed Type folic acid 2 mg PO HS 11/18/19 06/27/20 History buspirone 45 mg PO HS 01/22/20 06/27/20 History pantoprazole 40 mg PO HS 01/22/20 06/27/20 History duloxetine 60 mg PO HS 04/17/20 06/27/20 History hydroxyurea 1,000 mg PO BID 30 Days #120 cap 05/01/20 06/27/20 Rx oxycodone-acetaminophen 1 tab PO TID PRN 05/07/20 06/27/20 History Past Med/Surg History Medical History Borderline personality disorder Depression Murmur, cardiac Nausea Pneumonia Pseudoseizures Seizure-like activity Sickle cell anemia Sickle cell crisis Suicide gesture Surgical History No pertinent past surgical history Family History Mother Hypertension Father Ulcer Other Family history non-contributory Social History Smoking Status: Never smoker Tobacco Type: E-cigarettes / Vaping Second Hand Exposure: No; Hx Alcohol Use: Yes Alcohol type: beer Hx Substance Use: No Preferred Language: Bulgarian Communication Ability: Effective Perfumer Required: No Beliefs That Will Affect Care: None marital status: Single Current Living Situation: Other Current Living Situation Comment: apartment with roommates 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 current occupation: [employer] major Feels Safe at Home: Yes Assistive Devices: None Review of Systems Constitutional: + body aches and + weakness; no fever, no chills, no sweats, no fatigue, no malaise and no anorexia Eyes: no blind spots, no diplopia and no discharge Respiratory: + cough, + dyspnea, + dyspnea on exertion, + pain on inspiration and + pain with cough; no chest congestion, no hemoptysis, no snoring and no wheezing Cardiovascular: + chest pain; no chest pain at rest, no radiating jaw, neck or arm pain, no dyspnea and no dyspnea on exertion Gastrointestinal: no abdominal pain, no belching, no early satiety, no heartburn, no nausea, no vomiting, no coffee ground emesis, no constipation and no diarrhea/loose stools Genitourinary: no dysuria, no difficulty urinating, no urinary frequency, no urinary hesitancy and no urinary urgency Musculoskeletal: no back pain, no neck pain, no loss of height and no joint pain Neurologic: no gait abnormality, no unsteadiness, no localized weakness and no generalized weakness Psychiatric: as per Subjective / HPI Endocrine: as per Subjective / HPI Physical Exam Constitutional: cooperative and comfortable; no acute distress Neck: trachea midline, no thyromegaly Respiratory: normal respiratory effort, lungs clear to auscultation Cardiovascular: RRR, no murmur, no edema Gastrointestinal (Abdomen): normal bowel sounds, soft, nontender, no hepatosplenomegaly Musculoskeletal: no cyanosis or clubbing, extremities motor strength 5/5 Skin: no rashes, warm and dry Neurologic: PERRL, EOMI, accommodation nl, no face palsy, no dysarthria Psychiatric: A+Ox3, euthymic affect Results & Data Results & Data ([facility]) Vital Signs (Past 12 Hours) Vital Signs Temp Pulse Pulse Resp BP BP Pulse Ox 06/27/20 17:30 77 16 100 06/27/20 17:29 80 22 118/81 100 06/27/20 17:20 75 13 99 06/27/20 17:10 74 13 99 06/27/20 17:00 76 13 99 06/27/20 16:50 78 16 98 06/27/20 16:49 77 18 100/65 97 06/27/20 16:40 77 14 99 06/27/20 16:30 76 13 100/65 98 06/27/20 16:21 82 19 99/61 L 99 06/27/20 16:20 79 19 99/61 L 99 06/27/20 16:12 89 13 06/27/20 16:00 81 16 98 06/27/20 15:50 79 18 97 06/27/20 15:40 86 17 97 06/27/20 15:30 80 21 97 06/27/20 15:20 88 23 97 06/27/20 15:15 88 22 97 06/27/20 15:05 97 06/27/20 14:30 36.3 C L 94 H 18 113/81 99 PG Care Time/CCT Total # of Minutes Spent Total Time Spent with Patient: Total time spent is greater than 50% in coordination of care (as documented) at patient's floor/unit and/or counseling patient: Coding Level of Care Code 96040 OBS Care - Level 3 Diagnoses Sickle cell anemia with pain D57.00
[2020-06-27] MEDS: ONDANSETRON INJ 2 MG/ML 2 ML VIAL IV PRN (20:55)
[2020-06-27] MEDS: oxyCODONE/ACETAMINOPHEN 5mg/325mg TAB PO PRN (20:55)
[2020-06-27] MEDS: busPIRone 15 MG TAB PO SCH (21:36)
[2020-06-27] MEDS: FOLIC ACID 1 MG TAB PO SCH (21:36)
[2020-06-27] MEDS: HYDROXYUREA 500 MG CAP PO SCH (21:36)
[2020-06-27] MEDS: DULoxetine HCL 60 MG CAP PO SCH (21:36)
[2020-06-27] MEDS: PANTOprazole 40 MG TAB PO SCH (21:37)
[2020-06-27] MEDS: traMADol HCL 50 MG TABLET PO SCH (21:40)
[2020-06-27] MEDS: HYDROmorphone INJ 0.5 MG/0.5 ML SYR IV PRN (22:26)
[2020-06-28] MEDS: D5W AND 1/2NSS 1,000 ML IV SCH ×2 (03:16→13:52)
[2020-06-28] MEDS: HYDROmorphone INJ 0.5 MG/0.5 ML SYR IV PRN ×6 (03:18→22:11)
[2020-06-28] MEDS: oxyCODONE/ACETAMINOPHEN 5mg/325mg TAB PO PRN ×2 (04:36→20:38)
[2020-06-28 04:49] LABS: Appearance Urine Clear (Clear); Bilirubin Urine Negative (Negative); Blood Urine Negative (Negative); Color Urine Yellow; Glucose Urine UA Negative (Negative); Ketones Urine Negative (Negative); Leukocyte Esterase Urine Negative (Negative); Nitrite Urine Negative (Negative); Protein Urine Negative (Negative); Urobilinogen Urine Negative (Negative); pH Urine 6.5 (4.5-7.5)
[2020-06-28 06:54] LABS: Hematocrit (blood only) 23.8 % (37-47); Hemoglobin 8.4 g/dL (12.0-16.0); Mean Corpuscular Hemoglobin 41.6 pg (25-34); Mean Corpuscular Hgb Conc 35.3 g/dL (32-36); Mean Corpuscular Volume 117.8 fL (80-100); Mean Platelet Volume 10.5 fL (7.4-10.4); Nucleated RBC # (auto) 0.13 K/uL (0-0); Nucleated RBC % (auto) 3.2 %; Platelet Count 245 K/uL (130-400); RDW Coefficient of Variation 19.9 % (11.5-14.5); RDW Standard Deviation 85.3 fL (36.4-46.3); Red Blood Count 2.02 M/uL (4.2-5.4); Reticulocyte % 6.3 % (0.5-2.0); Reticulocytes # 0.13 10^6/uL (0.02-0.10); White Blood Count 3.94 K/uL (4.8-10.8)
[2020-06-28 07:20] LABS: Anisocytosis Present; Basophils # (auto) 0.01 K/uL (0-0.2); Basophils % (auto) 0.3 %; Eosinophils # (auto) 0.11 K/uL (0-0.5); Eosinophils % (auto) 2.8 %; Lymphocytes # (auto) 2.19 K/uL (1.2-3.4); Lymphocytes % (auto) 55.6 %; Macrocytosis Present; Monocytes # (auto) 0.18 K/uL (0.11-0.59); Monocytes % (auto) 4.6 %; Neutrophils # (auto) 1.45 K/uL (1.4-6.5); Neutrophils % (auto) 36.7 %; Ovalocytes 1+; Polychromasia 1+; Target Cells 1+
[2020-06-28] MEDS: ONDANSETRON INJ 2 MG/ML 2 ML VIAL IV PRN (07:39)
[2020-06-28 07:51] LABS: BUN Creatinine Ratio 18.8 (10-20); Blood Urea Nitrogen 11 mg/dl (7-18); Calcium 9.1 mg/dl (8.5-10.1); Carbon Dioxide 23 mmol/L (21-32); Chloride 109 mmol/L (98-107); Creatinine Clr Calc Pharmacy 144.2 ml/min; Est GFR (African American) > 150.0; Est GFR (Non-African American) 130.3; Glucose 94 mg/dl (70-99); Sodium 138 mmol/L (136-145)
[2020-06-28] MEDS: HYDROXYUREA 500 MG CAP PO SCH ×2 (08:39→20:32)
[2020-06-28] MEDS: traMADol HCL 50 MG TABLET PO SCH ×2 (08:41→20:38)
[2020-06-28] MEDS ORDERED: CALCIUM CARBONATE 500 MG CHEWABLE TAB PO PRN (15:09)
[2020-06-28] MEDS: FOLIC ACID 1 MG TAB PO SCH (20:31)
[2020-06-28] MEDS: busPIRone 15 MG TAB PO SCH (20:31)
[2020-06-28] MEDS: PANTOprazole 40 MG TAB PO SCH (20:31)
[2020-06-28] MEDS: DULoxetine HCL 60 MG CAP PO SCH (20:31)
--- NOTE | 2020-06-28 22:02 | Electrocardiogram Report ---
Test Reason : Blood Pressure : / mmHG Vent. Rate : 082 BPM Atrial Rate : 082 BPM P-R Int : 184 ms QRS Dur : 078 ms QT Int : 350 ms P-R-T Axes : 040 062 031 degrees QTc Int : 408 ms Poor data quality, interpretation may be adversely affected Normal sinus rhythm Possible Left atrial enlargement Borderline ECG When compared with ECG of 22-JUN-2020 05:24, GA interval has decreased Confirmed by Pierre Marquez ([id number]) on 06/28/2020 10:01:58 PM Referred By: REFERRED SELF Confirmed By:Pierre Marquez
--- NOTE | 2020-06-28 23:08 | Hospitalist Progress Note ---
Date of Service June 28, 2020 Assessment & Plan (1) Sickle cell anemia with pain: continue Dilaudid 0.5 mg IV every 3 hours as needed Continue tramadol 100 mg twice daily continue D5w NSS at 100cc/hr, not drinking well Continue hydroxyurea 1 g twice daily, she swears she was taking it at home Hb down to 8.4, repeat tomorrow d/w Dr. Dietrich, no need for inpatient consult, she did not follow up with him for lab checks as outpatient he stressed that she needs to follow up for labs for him to properly manage her Admission and Anticipated Discharge Date Admission Date: June 27, 2020 Subjective patient says she has diffuse pain, it is reasonably controlled with pain medications she is eating okay, not great she says she has some more chest pain, sternal pain than normal, wondering what that would be? sternum is tender to palpation, she denies shortness of breath, CXR clear reviewed chart, reviewed labs, Hb down at 8.4 from 9.8, feel the 9.8 could have been concentrated on admission vitals stable, 98% on room air Review of Systems Review of Systems: All systems reviewed & are unremarkable except as noted in Subjective Physical Exam Constitutional: WD/WN, vitals as above Neck: trachea midline, no thyromegaly Respiratory: normal respiratory effort, lungs clear to auscultation Cardiovascular: RRR, no murmur, no edema Chest (Breasts): Chest: normal inspection of chest (sternum tender to palpation) Gastrointestinal (Abdomen): normal bowel sounds, soft, nontender, no hepatosplenomegaly Musculoskeletal: no cyanosis or clubbing, extremities motor strength 5/5 Skin: no rashes, warm and dry Neurologic: patellar DTR's 2+ bilat, sensation intact and PERRL, EOMI, accommodation nl, no face palsy, no dysarthria Psychiatric: A+Ox3, euthymic affect Lymphatic: no cervical or axillary lymphadenopathy Results & Data Results & Data ([facility]) Vital Signs (Past 12 Hours) Vital Signs Temp Pulse Resp BP BP Pulse Ox 06/28/20 19:46 37.0 C 80 18 98/57 L 99 06/28/20 15:20 36.9 C 71 16 104/66 98 Laboratory Results Laboratory Results - last 24 hr 06/28/20 06/28/20 06/28/20 04:35 04:43 06:08 WBC 3.94 L RBC 2.02 L Hgb 8.4 L Hct 23.8 L MCV 117.8 H MCH 41.6 H MCHC 35.3 RDW Std Deviation 85.3 H RDW Coeff of Nando 19.9 H Plt Count 245 MPV 10.5 H Immature Gran % (Auto) 0.0 Neut % (Auto) 36.7 Lymph % (Auto) 55.6 [place] % (Auto) 4.6 Eos % (Auto) 2.8 Baso % (Auto) 0.3 Reticulocyte % (Auto) 6.3 H Neut # (Auto) 1.45 Lymph # (Auto) 2.19 [place] # (Auto) 0.18 Eos # (Auto) 0.11 Baso # (Auto) 0.01 Reticulocyte # 0.13 H Immature Gran # (Auto) 0.00 Absolute Nucleated RBC 0.13 H Nucleated RBC % (auto) 3.2 Polychromasia 1+ Anisocytosis Present Macrocytosis Present Target Cells 1+ Ovalocytes 1+ Sodium Potassium Chloride Carbon Dioxide Anion Gap BUN Creatinine Est Cr Clr Drug Dosing Est GFR ( Amer) Est GFR (Non-Af Amer) BUN/Creatinine Ratio Glucose Calcium Magnesium Urine Color Yellow Urine Appearance Clear Urine pH 6.5 Ur Specific [place] 1.010 Urine Protein Negative Urine Glucose (UA) Negative Urine Ketones Negative Urine Blood Negative Urine Nitrite Negative Urine Bilirubin Negative Urine Urobilinogen Negative Ur Leukocyte Esterase Negative POC Ur Test Cancelled 06/28/20 06:08 WBC RBC Hgb Hct MCV MCH MCHC RDW Std Deviation RDW Coeff of Nando Plt Count MPV Immature Gran % (Auto) Neut % (Auto) Lymph % (Auto) [place] % (Auto) Eos % (Auto) Baso % (Auto) Reticulocyte % (Auto) Neut # (Auto) Lymph # (Auto) [place] # (Auto) Eos # (Auto) Baso # (Auto) Reticulocyte # Immature Gran # (Auto) Absolute Nucleated RBC Nucleated RBC % (auto) Polychromasia Anisocytosis Macrocytosis Target Cells Ovalocytes Sodium 138 Potassium 4.0 Chloride 109 H Carbon Dioxide 23 Anion Gap 6.0 BUN 11 D Creatinine 0.60 Est Cr Clr Drug Dosing 144.2 Est GFR ( Amer) > 150.0 Est GFR (Non-Af Amer) 130.3 BUN/Creatinine Ratio 18.8 Glucose 94 Calcium 9.1 Magnesium 2.0 Urine Color Urine Appearance Urine pH Ur Specific [place] Urine Protein Urine Glucose (UA) Urine Ketones Urine Blood Urine Nitrite Urine Bilirubin Urine Urobilinogen Ur Leukocyte Esterase POC Ur Test Medications Administered Current Inpatient Medications Buspirone HCl (Buspirone 15 Mg Tab) 45 mg PO [facility] Stop: 07/27/20 20:59 Last Admin: 06/28/20 20:31 Dose: 45 mg Documented by: Calcium Carbonate (Calcium Carbonate 500 Mg Chewable Tab) 500 mg PO Q6H PRN PRN Reason: Indigestion Stop: 07/28/20 15:08 Duloxetine HCl (Duloxetine Hcl 60 Mg Cap) 60 mg PO [facility] Stop: 07/27/20 20:59 Last Admin: 06/28/20 20:31 Dose: 60 mg Documented by: Folic Acid (Folic Acid 1 Mg Tab) 2 mg PO [facility] Stop: 07/27/20 20:59 Last Admin: 06/28/20 20:31 Dose: 2 mg Documented by: Hydromorphone HCl (Hydromorphone Inj 0.5 Mg/0.5 Ml Syr) 0.5 mg IV Q3H PRN PRN Reason: Severe Pain Stop: 07/11/20 20:24 Last Admin: 06/28/20 22:11 Dose: 0.5 mg Documented by: Hydroxyurea (Hydroxyurea 500 Mg Cap) 1,000 mg PO BID [facility] Stop: 07/27/20 20:59 Last Admin: 06/28/20 20:32 Dose: 1,000 mg Documented by: Dextrose/Sodium Chloride (D5w And 1/2nss) 1,000 mls @ 100 mls/hr IV .Q10H [facility] Stop: 07/27/20 14:59 Last Admin: 06/28/20 13:52 Dose: 100 mls/hr Documented by: Ondansetron HCl (Ondansetron Inj 2 Mg/Ml 2 Ml Vial) 4 mg IV Q6H PRN PRN Reason: Nausea And Vomiting Stop: 07/27/20 20:37 Last Admin: 06/28/20 07:39 Dose: 4 mg Documented by: Oxycodone/Acetaminophen (Oxycodone/Acetaminophen 5mg/325mg Tab) 1 tab PO TID PRN PRN Reason: Pain Stop: 07/11/20 20:24 Last Admin: 06/28/20 20:38 Dose: 1 tab Documented by: Pantoprazole Sodium (Pantoprazole 40 Mg Tab) 40 mg PO HS [facility] Stop: 07/27/20 20:59 Last Admin: 06/28/20 20:31 Dose: 40 mg Documented by: Tramadol HCl (Tramadol Hcl 50 Mg Tablet) 100 mg PO Q12 [facility] Stop: 07/27/20 20:59 Last Admin: 06/28/20 20:38 Dose: 100 mg Documented by: PG Care Time/CCT Total # of Minutes Spent Total Time Spent with Patient: Total time spent is greater than 50% in coordination of care (as documented) at patient's floor/unit and/or counseling patient: Coding Level of Care Code 03082 Subseq Obs Care Lvl 2 Diagnoses Sickle cell anemia with pain D57.00
[2020-06-29] MEDS: D5W AND 1/2NSS 1,000 ML IV SCH ×3 (00:36→21:28)
[2020-06-29] MEDS: HYDROmorphone INJ 0.5 MG/0.5 ML SYR IV PRN ×7 (02:12→22:37)
[2020-06-29] MEDS ORDERED: Nursing to Pharmacy Communication SCH (02:30)
[2020-06-29 06:07] LABS: Hematocrit (blood only) 25.2 % (37-47); Hemoglobin 8.9 g/dL (12.0-16.0); Mean Corpuscular Hemoglobin 41.8 pg (25-34); Mean Corpuscular Hgb Conc 35.3 g/dL (32-36); Mean Corpuscular Volume 118.3 fL (80-100); Mean Platelet Volume 10.3 fL (7.4-10.4); Nucleated RBC # (auto) 0.16 K/uL (0-0); Nucleated RBC % (auto) 3.3 %; Platelet Count 291 K/uL (130-400); RDW Coefficient of Variation 19.9 % (11.5-14.5); RDW Standard Deviation 85.3 fL (36.4-46.3); Red Blood Count 2.13 M/uL (4.2-5.4); White Blood Count 4.65 K/uL (4.8-10.8)
[2020-06-29 06:38] LABS: Blood Urea Nitrogen 8 mg/dl (7-18); Calcium 9.1 mg/dl (8.5-10.1); Carbon Dioxide 24 mmol/L (21-32); Chloride 108 mmol/L (98-107); Creatinine Clr Calc Pharmacy 169.7 ml/min; Est GFR (African American) > 150.0 ml/min; Est GFR (Non-African American) 137.5 ml/min; Glucose 89 mg/dl (70-99); Potassium 3.8 mmol/L (3.5-5.1); Sodium 138 mmol/L (136-145)
[2020-06-29] MEDS: oxyCODONE/ACETAMINOPHEN 5mg/325mg TAB PO PRN (07:29)
[2020-06-29] MEDS: traMADol HCL 50 MG TABLET PO SCH ×2 (08:59→21:30)
[2020-06-29] MEDS: HYDROXYUREA 500 MG CAP PO SCH ×2 (09:00→21:29)
--- NOTE | 2020-06-29 16:21 | Hospitalist Progress Note ---
Date of Service June 29, 2020 Assessment & Plan (1) Sickle cell anemia with pain: continue Dilaudid 0.5 mg IV every 3 hours as needed, try to use less tomorrow Continue tramadol 100 mg twice daily, Percocet PRN continue D5w NSS at 100cc/hr since she is not eating/drinking great, stop fluids in the AM Continue hydroxyurea 1 g twice daily Hb up to 8.9, repeat tomorrow d/w Dr. Dietrich, no need for inpatient consult, she did not follow up with him for lab checks as outpatient he stressed that she needs to follow up for labs for him to properly manage her Admission and Anticipated Discharge Date Admission Date: June 27, 2020 Subjective still with pain, maybe a little better, describes it as all over but worse in her sternum breathing okay, just cannot take a deep breath due to pain in chest no fever, no cough, no abdominal pain, no nausea or vomiting she is eating okay, had food delivered reviewed labs, Hb up to 8.9 today she had a dose of Oxycodone this morning but require Dilaudid IV twice during the day Review of Systems Review of Systems: All systems reviewed & are unremarkable except as noted in Subjective Physical Exam Constitutional: WD/WN, vitals as above Neck: trachea midline, no thyromegaly Respiratory: normal respiratory effort, lungs clear to auscultation Cardiovascular: RRR, no murmur, no edema Chest (Breasts): Chest: normal inspection of chest (sternum tender to palpation) Gastrointestinal (Abdomen): normal bowel sounds, soft, nontender, no hepatosplenomegaly Musculoskeletal: no cyanosis or clubbing, extremities motor strength 5/5 Skin: no rashes, warm and dry Neurologic: patellar DTR's 2+ bilat, sensation intact and PERRL, EOMI, accommodation nl, no face palsy, no dysarthria Psychiatric: A+Ox3, euthymic affect Lymphatic: no cervical or axillary lymphadenopathy Results & Data Results & Data ([facility]) Vital Signs (Past 12 Hours) Vital Signs Temp Pulse Pulse Pulse Resp BP Pulse Ox 06/29/20 15:49 37 C 89 20 101/59 L 99 06/29/20 15:09 83 06/29/20 12:47 91 H 107/68 100 06/29/20 12:14 37.1 C 84 20 95/61 L 97 06/29/20 07:45 72 06/29/20 07:36 36.5 C 76 18 100/62 98 Laboratory Results Laboratory Results - last 24 hr 06/29/20 06/29/20 05:43 05:43 WBC 4.65 L RBC 2.13 L Hgb 8.9 L Hct 25.2 L MCV 118.3 H MCH 41.8 H MCHC 35.3 RDW Std Deviation 85.3 H RDW Coeff of [place]ando 19.9 H Plt Count 291 MPV 10.3 Absolute Nucleated RBC 0.16 H Nucleated RBC % (auto) 3.3 Sodium 138 Potassium 3.8 Chloride 108 H Carbon Dioxide 24 Anion Gap 6.0 BUN 8 Creatinine 0.51 L Est Cr Clr Drug Dosing 169.7 Est GFR ( Amer) > 150.0 Est GFR (Non-Af Amer) 137.5 BUN/Creatinine Ratio 16.0 Glucose 89 Calcium 9.1 Medications Administered Current Inpatient Medications Buspirone HCl (Buspirone 15 Mg Tab) [address] [facility] Stop: 07/27/20 20:59 Last Admin: 06/28/20 20:31 Dose: 45 mg Documented by: Calcium Carbonate (Calcium Carbonate 500 Mg Chewable Tab) 500 mg PO Q6H PRN PRN Reason: Indigestion Stop: 07/28/20 15:08 Duloxetine HCl (Duloxetine Hcl 60 Mg Cap) [address] [facility] Stop: 07/27/20 20:59 Last Admin: 06/28/20 20:31 Dose: 60 mg Documented by: Folic Acid (Folic Acid 1 Mg Tab) [address] [facility] Stop: 07/27/20 20:59 Last Admin: 06/28/20 20:31 Dose: 2 mg Documented by: Hydromorphone HCl (Hydromorphone Inj 0.5 Mg/0.5 Ml Syr) 0.5 mg IV Q3H PRN PRN Reason: Severe Pain Stop: 07/11/20 20:24 Last Admin: 06/29/20 12:48 Dose: 0.5 mg Documented by: Hydroxyurea (Hydroxyurea 500 Mg Cap) 1,000 mg PO BID [facility] Stop: 07/27/20 20:59 Last Admin: 06/29/20 09:00 Dose: 1,000 mg Documented by: Dextrose/Sodium Chloride (D5w And 1/2nss) 1,000 mls @ 100 mls/hr IV .Q10H [facility] Stop: 07/27/20 14:59 Last Admin: 06/29/20 11:51 Dose: 100 mls/hr Documented by: Ondansetron HCl (Ondansetron Inj 2 Mg/Ml 2 Ml Vial) 4 mg IV Q6H PRN PRN Reason: Nausea And Vomiting Stop: 07/27/20 20:37 Last Admin: 06/28/20 07:39 Dose: 4 mg Documented by: Oxycodone/Acetaminophen (Oxycodone/Acetaminophen 5mg/325mg Tab) 1 tab PO TID PRN PRN Reason: Pain Stop: 07/11/20 20:24 Last Admin: 06/29/20 07:29 Dose: 1 tab Documented by: Pantoprazole Sodium (Pantoprazole 40 Mg Tab) 40 mg PO HS [facility] Stop: 07/27/20 20:59 Last Admin: 06/28/20 20:31 Dose: 40 mg Documented by: Tramadol HCl (Tramadol Hcl 50 Mg Tablet) 100 mg PO Q12 [facility] Stop: 07/27/20 20:59 Last Admin: 06/29/20 08:59 Dose: 100 mg Documented by: PG Care Time/CCT Total # of Minutes Spent Total Time Spent with Patient: Total time spent is greater than 50% in coordination of care (as documented) at patient's floor/unit and/or counseling patient: Coding Level of Care Code 44264 Subseq Hosp Care Lvl 2 Diagnoses Sickle cell anemia with pain D57.00
[2020-06-29] MEDS: DULoxetine HCL 60 MG CAP PO SCH (21:28)
[2020-06-29] MEDS: PANTOprazole 40 MG TAB PO SCH (21:28)
[2020-06-29] MEDS: busPIRone 15 MG TAB PO SCH (21:29)
[2020-06-29] MEDS: FOLIC ACID 1 MG TAB PO SCH (21:29)
[2020-06-30] MEDS: HYDROmorphone INJ 0.5 MG/0.5 ML SYR IV PRN ×5 (03:48→21:40)
[2020-06-30 06:33] LABS: Hemoglobin 8.6 g/dL (12.0-16.0); Mean Corpuscular Hemoglobin 41.7 pg (25-34); Mean Corpuscular Hgb Conc 35.8 g/dL (32-36); Mean Corpuscular Volume 116.5 fL (80-100); Mean Platelet Volume 9.8 fL (7.4-10.4); Nucleated RBC # (auto) 0.11 K/uL (0-0); Nucleated RBC % (auto) 2.8 %; Platelet Count 365 K/uL (130-400); RDW Coefficient of Variation 20.2 % (11.5-14.5); RDW Standard Deviation 86.1 fL (36.4-46.3); Red Blood Count 2.06 M/uL (4.2-5.4); White Blood Count 4.04 K/uL (4.8-10.8)
[2020-06-30] MEDS: D5W AND 1/2NSS 1,000 ML IV SCH ×3 (06:42→21:40)
[2020-06-30] MEDS: HYDROXYUREA 500 MG CAP PO SCH ×2 (09:55→21:42)
[2020-06-30] MEDS: traMADol HCL 50 MG TABLET PO SCH ×2 (09:55→21:40)
[2020-06-30] MEDS: POLYETHYLENE (MIRALAX) 17 GM PACK PO PRN (11:52)
[2020-06-30] MEDS: oxyCODONE/ACETAMINOPHEN 5mg/325mg TAB PO PRN (11:52)
[2020-06-30] MEDS: SENNA 8.6 MG TAB PO SCH (11:59)
[2020-06-30] MEDS ORDERED: HYDROmorphone INJ 1 MG/ML SYRINGE IV STA (12:14)
--- NOTE | 2020-06-30 14:15 | Hospitalist Progress Note ---
Date of Service June 30, 2020 Assessment & Plan (1) Sickle cell anemia with pain: continue Dilaudid 0.5 mg IV every 3 hours as needed, not helping as much today Continue tramadol 100 mg twice daily, Percocet PRN resume D5w NSS at 125cc/hr since she is still not eating/drinking much Continue hydroxyurea 1 g twice daily Hb stable at 8.6, no need for transfusion, repeat tomorrow d/w Dr. Dietrich, no need for inpatient consult, she did not follow up with him for lab checks as outpatient he stressed that she needs to follow up for labs for him to properly manage her (2) Depression: very flat affect, sleeps most of the day, not motivated (3) Chest pain: will check a CTA chest CXR was normal, pain is over sternum and reproducible, likely due to Sickle crisis Admission and Anticipated Discharge Date Admission Date: June 27, 2020 Subjective patient still with a lot of pain, might be a little worse than yesterday most intense pain is over the sternum, hurts to take a deep breath saturations 98-99% on room air, she requested 2L NC because it makes her feel better she cannot eat much she has not had a BM in three days, requesting Miralax and Senokot discussed getting CTA chest, she agrees will resume fluids since she is not eating/drinking enough Review of Systems Review of Systems: All systems reviewed & are unremarkable except as noted in Subjective Constitutional: + fatigue and + weakness; no fever, no chills and no sweats Respiratory: + dyspnea on exertion; no cough and no dyspnea Cardiovascular: + chest pain (sternal pain, worse with deep breath) Gastrointestinal: + constipation; no abdominal pain, no nausea, no vomiting and no diarrhea/loose stools Physical Exam Constitutional: WD/WN, vitals as above Neck: trachea midline, no thyromegaly Respiratory: normal respiratory effort, lungs clear to auscultation Cardiovascular: RRR, no murmur, no edema Chest (Breasts): Chest: normal inspection of chest (sternum tender to palpation) Gastrointestinal (Abdomen): normal bowel sounds, soft, nontender, no hepatosplenomegaly Musculoskeletal: no cyanosis or clubbing, extremities motor strength 5/5 Skin: no rashes, warm and dry Neurologic: patellar DTR's 2+ bilat, sensation intact and PERRL, EOMI, accommodation nl, no face palsy, no dysarthria Psychiatric: A+Ox3, euthymic affect Lymphatic: no cervical or axillary lymphadenopathy Results & Data Results & Data ([facility]) Vital Signs (Past 12 Hours) Vital Signs Temp Pulse Pulse Resp BP Pulse Ox 06/30/20 12:33 114/70 06/30/20 11:44 36.9 C 81 19 93/60 L 100 06/30/20 09:10 127/78 06/30/20 07:49 36.9 C 80 18 95/60 L 99 06/30/20 07:26 75 06/30/20 02:55 36.9 C 94 H 16 95/55 L 94 Laboratory Results Laboratory Results - last 24 hr 06/30/20 06:04 WBC 4.04 L RBC 2.06 L Hgb 8.6 L Hct 24.0 L MCV 116.5 H MCH 41.7 H MCHC 35.8 RDW Std Deviation 86.1 H RDW Coeff of [place]ando 20.2 H Plt Count 365 MPV 9.8 Absolute Nucleated RBC 0.11 H Nucleated RBC % (auto) 2.8 Medications Administered Current Inpatient Medications Buspirone HCl (Buspirone 15 Mg Tab) 45 mg PO HS [facility] Stop: 07/27/20 20:59 Last Admin: 06/29/20 21:29 Dose: 45 mg Documented by: Calcium Carbonate (Calcium Carbonate 500 Mg Chewable Tab) 500 mg PO Q6H PRN PRN Reason: Indigestion Stop: 07/28/20 15:08 Duloxetine HCl (Duloxetine Hcl 60 Mg Cap) 60 mg PO HS [facility] Stop: 07/27/20 20:59 Last Admin: 06/29/20 21:28 Dose: 60 mg Documented by: Folic Acid (Folic Acid 1 Mg Tab) 2 mg PO HS [facility] Stop: 07/27/20 20:59 Last Admin: 06/29/20 21:29 Dose: 2 mg Documented by: Hydromorphone HCl (Hydromorphone Inj 0.5 Mg/0.5 Ml Syr) 0.5 mg IV Q3H PRN PRN Reason: Severe Pain Stop: 07/11/20 20:24 Last Admin: 06/30/20 09:13 Dose: 0.5 mg Documented by: Hydroxyurea (Hydroxyurea 500 Mg Cap) 1,000 mg PO BID [facility] Stop: 07/27/20 20:59 Last Admin: 06/30/20 09:55 Dose: 1,000 mg Documented by: Dextrose/Sodium Chloride (D5w And 1/2nss) 1,000 mls @ 125 mls/hr IV .Q8H [facility] Stop: 07/30/20 13:29 Ondansetron HCl (Ondansetron Inj 2 Mg/Ml 2 Ml Vial) 4 mg IV Q6H PRN PRN Reason: Nausea And Vomiting Stop: 07/27/20 20:37 Last Admin: 06/28/20 07:39 Dose: 4 mg Documented by: Oxycodone/Acetaminophen (Oxycodone/Acetaminophen 5mg/325mg Tab) 1 tab PO TID PRN PRN Reason: Pain Stop: 07/11/20 20:24 Last Admin: 06/30/20 11:52 Dose: 1 tab Documented by: Pantoprazole Sodium (Pantoprazole 40 Mg Tab) 40 mg PO HS [facility] Stop: 07/27/20 20:59 Last Admin: 06/29/20 21:28 Dose: 40 mg Documented by: Polyethylene Glycol (Polyethylene (Miralax) 17 Gm Pack) 17 gm PO DAILY PRN PRN Reason: Constipation Stop: 07/30/20 10:58 Last Admin: 06/30/20 11:52 Dose: 17 gm Documented by: Sennosides (Senna 8.6 Mg Tab) 17.2 mg PO QAM [facility] Stop: 07/30/20 10:59 Last Admin: 06/30/20 11:59 Dose: 17.2 mg Documented by: Tramadol HCl (Tramadol Hcl 50 Mg Tablet) 100 mg PO Q12 [facility] Stop: 07/27/20 20:59 Last Admin: 06/30/20 09:55 Dose: 100 mg Documented by: PG Care Time/CCT Total # of Minutes Spent Total Time Spent with Patient: Total time spent is greater than 50% in coordination of care (as documented) at patient's floor/unit and/or counseling patient: Coding Level of Care Code 01040 Subseq Hosp Care Lvl 2 Diagnoses Sickle cell anemia with pain D57.00 Depression F32.9 Depression Type: major depressive disorder Major depression recurrence: unspecified whether recurrent Active/Remission status: remission status unspecified Chest pain R07.9 (1) Depression Depression Type: major depressive disorder Major depression recurrence: unspecified whether recurrent Active/Remission status: remission status unspecified Qualified Code(s): F32.9 - Major depressive disorder, single episode, unspecified
[2020-06-30] MEDS ORDERED: OPTIRAY 350 500ml IV ONE (14:29)
--- NOTE | 2020-06-30 14:41 | CT Scan Report ---
CT ANGIOGRAM OF THE CHEST CLINICAL HISTORY: Shortness of breath. Possible acute pulmonary embolism. COMPARISON STUDY: 04/12/2019 TECHNIQUE: Following the IV administration of 120 mL of Optiray, CT angiogram of the thorax was perfo rmed from the thoracic inlet to the lung bases utilizing the pulmonary embolus protocol. Images are r eviewed in the axial, sagittal, and coronal planes. IV contrast was administered without complication . MIP imaging was performed. A dose lowering technique was utilized adhering to the principles of AL KRISTOPHER. CT DOSE: 385.64 mGy.cm FINDINGS: There are mildly prominent bilateral axillary lymph nodes, similar to the prior study and likely reac tive. There is no pathologic mediastinal or hilar lymphadenopathy There was no evidence of thoracic aortic dilatation. There were no pulmonary artery filling defects to indicate acute pulmonary embolism. No pleural effusions are visualized. There are minimal left basilar atelectatic changes. There was no evidence of focal pulmonary consolidation. There are bony findings suggesting underlying sickle cell anemia IMPRESSION: 1. No evidence of acute pulmonary embolism 2. No evidence of focal pulmonary consolidation 3. Bony findings consistent with underlying sickle cell anemia ACT 112: Negative or not required by law. Electronically signed by: Jacob Phillips M.D. 06/30/2020 2:40 PM
[2020-06-30] MEDS: busPIRone 15 MG TAB PO SCH (21:42)
[2020-06-30] MEDS: FOLIC ACID 1 MG TAB PO SCH (21:43)
[2020-06-30] MEDS: DULoxetine HCL 60 MG CAP PO SCH (21:44)
[2020-06-30] MEDS: PANTOprazole 40 MG TAB PO SCH (21:44)
[2020-07-01] MEDS: HYDROmorphone INJ 0.5 MG/0.5 ML SYR IV PRN ×8 (00:37→23:48)
[2020-07-01] MEDS: D5W AND 1/2NSS 1,000 ML IV SCH ×3 (04:38→19:59)
[2020-07-01 05:40] LABS: Hematocrit (blood only) 23.8 % (37-47); Hemoglobin 8.5 g/dL (12.0-16.0); Mean Corpuscular Hemoglobin 41.7 pg (25-34); Mean Corpuscular Hgb Conc 35.7 g/dL (32-36); Mean Corpuscular Volume 116.7 fL (80-100); Mean Platelet Volume 9.7 fL (7.4-10.4); Nucleated RBC # (auto) 0.15 K/uL (0-0); Nucleated RBC % (auto) 3.6 %; Platelet Count 418 K/uL (130-400); RDW Coefficient of Variation 19.8 % (11.5-14.5); RDW Standard Deviation 82.8 fL (36.4-46.3); Red Blood Count 2.04 M/uL (4.2-5.4); White Blood Count 4.17 K/uL (4.8-10.8)
[2020-07-01 06:13] LABS: BUN Creatinine Ratio 16.1 (10-20); Blood Urea Nitrogen 7 mg/dl (7-18); Calcium 9.3 mg/dl (8.5-10.1); Carbon Dioxide 26 mmol/L (21-32); Chloride 107 mmol/L (98-107); Creatinine Clr Calc Pharmacy 196.7 ml/min; Est GFR (African American) > 150.0 ml/min; Est GFR (Non-African American) 144.3 ml/min; Glucose 113 mg/dl (70-99); Potassium 3.5 mmol/L (3.5-5.1); Sodium 138 mmol/L (136-145)
[2020-07-01] MEDS: SENNA 8.6 MG TAB PO SCH (08:46)
[2020-07-01] MEDS: traMADol HCL 50 MG TABLET PO SCH ×2 (08:46→20:02)
[2020-07-01] MEDS: HYDROXYUREA 500 MG CAP PO SCH ×2 (08:46→20:01)
[2020-07-01] MEDS: oxyCODONE/ACETAMINOPHEN 5mg/325mg TAB PO PRN (12:15)
[2020-07-01] MEDS: ONDANSETRON INJ 2 MG/ML 2 ML VIAL IV PRN (13:57)
--- NOTE | 2020-07-01 19:10 | Hospitalist Progress Note ---
Date of Service July 01, 2020 Assessment & Plan (1) Sickle cell anemia with pain: Vaso-occlusive pain crisis. Continue IVF. Continue IV/PO pain meds (Dilaudid 0.5 mg IV every 3 hours prn, scheduled tramadol 100 mg twice daily, Percocet PRN). Continue hydroxyurea 1 g twice daily. Continue folate 2mg daily. Stable H/H. Repeat cbc with retic in am. Patient was to f/u with Dr. Dietrich in [facility] as outpatient following one of her recent admissions but she did not do so. Will d/w patient what she wants to do for f/u. She needs regular hematology visits in clinic. No signs/symptoms of acute chest syndrome, etc. (2) Depression: Cont cymbalta. Cont buspar. Follows with psych as outpatient. (3) Chest pain: CTA chest negative for infiltrates. COVID negative. Pain is likely sternal pain from vaso-occlusive pain crisis. (4) DVT prophylaxis: add lovenox 40mg daily Admission and Anticipated Discharge Date Admission Date: June 27, 2020 Subjective patient sleepy during the visit states b/l leg pain is improved still w/ mild sternal pain eating ok -- there was take-out Malay food in the room had small bm 1-2 days ago no dyspnea Review of Systems Constitutional: + fatigue; no fever and no chills Cardiovascular: as per Subjective / HPI; no orthopnea and no edema Gastrointestinal: + nausea; no vomiting Physical Exam Constitutional: no acute distress and no altered mental status (sleepy ) ENMT: external ear and nose normal, oropharynx normal Mouth: no oral mucosal abnormality (no thrush ) Respiratory: normal respiratory effort, lungs clear to auscultation Auscultation: + diminished lung sounds (bases) Cardiovascular: Rate/Rhythm: regular rate and regular rhythm Heart Sounds: normal S1, normal S2 and + murmur (1-2/6 [place] LSB ) Vessels: no JVD Extremities: no edema Gastrointestinal (Abdomen): normal bowel sounds, soft, nontender, no hepatosplenomegaly Skin: + pallor Psychiatric: Orientation: alert and oriented x 3 Affect: + flat affect Results & Data Results & Data ([facility]) Vital Signs (Past 12 Hours) Vital Signs Temp Pulse Pulse Resp BP Pulse Ox 07/01/20 15:40 79 07/01/20 12:54 36.8 C 80 17 138/96 98 07/01/20 08:00 85 07/01/20 07:45 36.7 C 80 18 112/70 99 Laboratory Results Laboratory Results - last 24 hr 07/01/20 07/01/20 05:16 05:16 WBC 4.17 L RBC 2.04 L Hgb 8.5 L Hct 23.8 L MCV 116.7 H MCH 41.7 H MCHC 35.7 RDW Std Deviation 82.8 H RDW Coeff of Nando 19.8 H Plt Count 418 H MPV 9.7 Absolute Nucleated RBC 0.15 H Nucleated RBC % (auto) 3.6 Sodium 138 Potassium 3.5 Chloride 107 Carbon Dioxide 26 Anion Gap 5.0 BUN 7 Creatinine 0.44 L Est Cr Clr Drug Dosing 196.7 Est GFR ( Amer) > 150.0 Est GFR (Non-Af Amer) 144.3 BUN/Creatinine Ratio 16.1 Glucose 113 H Calcium 9.3 PG Care Time/CCT Total # of Minutes Spent Total Time Spent with Patient: Total time spent is greater than 50% in coordination of care (as documented) at patient's floor/unit and/or counseling patient: Coding Level of Care Code 04767 Subseq Hosp Care Lvl 2 Diagnoses Sickle cell anemia with pain D57.00 Depression F32.9 Active/Remission status: remission status unspecified Depression Type: major depressive disorder Major depression recurrence: unspecified whether recurrent Chest pain R07.9 DVT prophylaxis Z29.9 (1) Depression Active/Remission status: remission status unspecified Depression Type: major depressive disorder Major depression recurrence: unspecified whether recurrent Qualified Code(s): F32.9 - Major depressive disorder, single episode, unspecified
[2020-07-01] MEDS ORDERED: ENOXAPARIN INJ 40 MG/0.4 ML SYR SQ ONE (19:15)
[2020-07-01] MEDS: FOLIC ACID 1 MG TAB PO SCH (20:01)
[2020-07-01] MEDS: busPIRone 15 MG TAB PO SCH (20:01)
[2020-07-01] MEDS: PANTOprazole 40 MG TAB PO SCH (20:02)
[2020-07-01] MEDS: DULoxetine HCL 60 MG CAP PO SCH (20:02)
[2020-07-01] MEDS: POLYETHYLENE (MIRALAX) 17 GM PACK PO SCH (20:02)
[2020-07-02] MEDS: HYDROmorphone INJ 0.5 MG/0.5 ML SYR IV PRN ×7 (02:51→21:31)
[2020-07-02] MEDS: D5W AND 1/2NSS 1,000 ML IV SCH ×3 (04:10→20:05)
[2020-07-02 05:47] LABS: Hematocrit (blood only) 23.3 % (37-47); Hemoglobin 8.3 g/dL (12.0-16.0); Mean Corpuscular Hemoglobin 41.9 pg (25-34); Mean Corpuscular Hgb Conc 35.6 g/dL (32-36); Mean Corpuscular Volume 117.7 fL (80-100); Mean Platelet Volume 9.5 fL (7.4-10.4); Nucleated RBC # (auto) 0.18 K/uL (0-0); Nucleated RBC % (auto) 4.8 %; Platelet Count 461 K/uL (130-400); RDW Coefficient of Variation 19.6 % (11.5-14.5); Red Blood Count 1.98 M/uL (4.2-5.4); Reticulocyte % 4.4 % (0.5-2.0); Reticulocytes # 0.09 10^6/uL (0.02-0.10); White Blood Count 3.71 K/uL (4.8-10.8)
[2020-07-02 06:46] LABS: Basophils # (auto) 0.01 K/uL (0-0.2); Basophils % (auto) 0.3 %; Eosinophils # (auto) 0.06 K/uL (0-0.5); Eosinophils % (auto) 1.6 %; Howell-Jolly Bodies 1+; Lymphocytes # (auto) 2.69 K/uL (1.2-3.4); Lymphocytes % (auto) 72.5 %; Monocytes # (auto) 0.12 K/uL (0.11-0.59); Monocytes % (auto) 3.2 %; Neutrophils # (auto) 0.83 K/uL (1.4-6.5); Neutrophils % (auto) 22.4 %; Polychromasia 1+; Sickle Cells 1+; Stomatocytes 1+
[2020-07-02 07:13] LABS: Target Cells 1+
[2020-07-02] MEDS: POLYETHYLENE (MIRALAX) 17 GM PACK PO SCH ×2 (08:53→20:06)
[2020-07-02] MEDS: SENNA 8.6 MG TAB PO SCH (08:53)
[2020-07-02] MEDS: ENOXAPARIN INJ 40 MG/0.4 ML SYR SQ SCH (08:53)
[2020-07-02] MEDS: traMADol HCL 50 MG TABLET PO SCH ×2 (08:54→20:05)
[2020-07-02] MEDS: HYDROXYUREA 500 MG CAP PO SCH ×2 (08:54→20:07)
[2020-07-02] MEDS: oxyCODONE/ACETAMINOPHEN 5mg/325mg TAB PO PRN (14:35)
[2020-07-02] MEDS: ONDANSETRON INJ 2 MG/ML 2 ML VIAL IV PRN (14:35)
[2020-07-02] MEDS: oxyCODONE/APAP 7.5/325MG TAB PO PRN (20:05)
[2020-07-02] MEDS: DULoxetine HCL 60 MG CAP PO SCH (20:07)
[2020-07-02] MEDS: busPIRone 15 MG TAB PO SCH (20:07)
[2020-07-02] MEDS: PANTOprazole 40 MG TAB PO SCH (20:07)
[2020-07-02] MEDS: FOLIC ACID 1 MG TAB PO SCH (20:08)
[2020-07-02] MEDS: KETOROLAC 30 MG/ML VIAL IV SCH (21:30)
[2020-07-02] MEDS: DOXEPIN HCL 25 MG CAPSULE PO SCH (21:31)
--- NOTE | 2020-07-02 22:57 | Hospitalist Progress Note ---
Date of Service July 02, 2020 Assessment & Plan (1) Sickle cell anemia with pain: Vaso-occlusive pain crisis. Ongoing, but seems improved overall. Continue IVF but lower rate to 75cc/hr. Continue IV/PO pain meds (Dilaudid 0.5 mg IV every 3 hours prn, scheduled tramadol 100 mg twice daily, Percocet PRN). Continue hydroxyurea 1 g twice daily. Continue folate 2mg daily. Stable H/H and retic today. Repeat cbc with retic in am. Patient was to f/u with Dr. Dietrich in [facility] as outpatient following one of her recent admissions but she did not do so. In effort to wean her off dilaudid will adjust her percocet to 7.5mg tab q6h. Also give toradol 30mg IV x 3 doses overnight. (2) Depression: Cont cymbalta. Cont buspar. Follows with psych as outpatient. Sleep is a big issue for her - see below. (3) Chest pain: CTA chest negative for infiltrates. COVID negative. Pain is likely sternal pain from vaso-occlusive pain crisis. k-pad prn. pain meds. toradol x 3 doses. (4) Insomnia: chronic issue. no response to melatonin. did not like trazodone. in light of anxiety, pruritis from narcotics, etc - trial of doxepin 25mg HS. (5) Chronic pain syndrome: cont pain meds as noted above (6) Neutropenia: etiology? could she have CMV, parvo, EBV, other viral etiology?? will d/w Dr Dietrich. repeat CBC w/ diff AM. neutropenic precautions. (7) DVT prophylaxis: lovenox 40mg daily Admission and Anticipated Discharge Date Admission Date: June 27, 2020 Subjective James and I had lengthy discussion about her sleep. Has chronic insomnia. Generally can fall asleep but wakes up easily in middle of night then can't stay asleep. She feels tired most mornings. Only "about 1 out of 7" nights does she feel like she gets good sleep. Took trazodone in past - felt lethargic from such. Has tried melatonin - doesn't help. Can't recall other meds. Readily admits to ongoing depression. She feels guilty about some of her habits - she mentions she "loves fashion" and spends $ on clothes, then feels guilty about her purchases. When asked what brings her alec to her life she mentions the shopping, but can't pinpoint other things that make her happy. She does have a new boyfriend and she enjoys her time w/ him but unfortunately he is getting ready to move to [place]. Pain is improving. She has residual pain in back/chest. Asks for heating pad. Continues with constipation. Eating today - fair, but drinking fluids. Review of Systems Constitutional: + fatigue; no fever, no chills and no body aches Ear, Nose, Mouth, Throat: no nasal congestion and no sore throat Respiratory: no cough and no dyspnea Cardiovascular: as per Subjective / HPI; no edema Gastrointestinal: + nausea and + constipation; no abdominal pain and no vomiting Musculoskeletal: no joint pain long bone pain - legss Integumentary: + pruritus (chronic, worse at night ) Psychiatric: + depression and + abnormal sleep pattern Physical Exam Constitutional: no acute distress and no altered mental status very talkative today, even smiled once or twice ENMT: external ear and nose normal, oropharynx normal Mouth: no oral mucosal abnormality (no thrush ) Respiratory: normal respiratory effort, lungs clear to auscultation Auscultation: + diminished lung sounds (bases) Cardiovascular: Rate/Rhythm: regular rate and regular rhythm Heart Sounds: normal S1, normal S2 and + murmur (1-2/6 GREYSON LSB ) Vessels: no JVD Extremities: no edema Gastrointestinal (Abdomen): normal bowel sounds, soft, nontender, no hepatosplenomegaly Skin: + pallor Psychiatric: Orientation: alert and oriented x 3 Results & Data Results & Data ([facility]) Vital Signs (Past 12 Hours) Vital Signs Temp Pulse Pulse Resp BP BP Pulse Ox 07/02/20 22:23 36.7 C 91 H 18 96/55 L 100 07/02/20 19:04 36.8 C 82 18 95/56 L 99 07/02/20 16:00 83 07/02/20 15:51 36.6 C 94 H 19 109/72 99 Laboratory Results Laboratory Results - last 24 hr 07/02/20 05:27 WBC 3.71 L RBC 1.98 L Hgb 8.3 L Hct 23.3 L MCV 117.7 H MCH 41.9 H MCHC 35.6 RDW Std Deviation 83.0 H RDW Coeff of Nando 19.6 H Plt Count 461 H MPV 9.5 Immature Gran % (Auto) 0.0 Neut % (Auto) 22.4 Lymph % (Auto) 72.5 [place] % (Auto) 3.2 Eos % (Auto) 1.6 Baso % (Auto) 0.3 Reticulocyte % (Auto) 4.4 H Neut # (Auto) 0.83 L* Lymph # (Auto) 2.69 [place] # (Auto) 0.12 Eos # (Auto) 0.06 Baso # (Auto) 0.01 Reticulocyte # 0.09 Immature Gran # (Auto) 0.00 Absolute Nucleated RBC 0.18 H Nucleated RBC % (auto) 4.8 Polychromasia 1+ Sickle Cells 1+ Target Cells 1+ Stomatocytes 1+ [place] Bodies 1+ PG Care Time/CCT Total # of Minutes Spent Total Time Spent with Patient: Total time spent is greater than 50% in coordination of care (as documented) at patient's floor/unit and/or counseling patient: Coding Level of Care Code 64590 Subseq Hosp Care Lvl 2 Diagnoses Sickle cell anemia with pain D57.00 Depression F32.9 Active/Remission status: remission status unspecified Depression Type: major depressive disorder Major depression recurrence: unspecified whether recurrent Chest pain R07.2 Chest pain type: precordial pain Insomnia G47.00 Insomnia type: unspecified Chronic pain syndrome G89.4 Neutropenia D70.9 Neutropenia type: unspecified DVT prophylaxis Z29.9 (1) Insomnia Insomnia type: unspecified Qualified Code(s): G47.00 - Insomnia, unspecified (2) Depression Active/Remission status: remission status unspecified Depression Type: major depressive disorder Major depression recurrence: unspecified whether recurrent Qualified Code(s): F32.9 - Major depressive disorder, single episode, unspecified (3) Chest pain Chest pain type: precordial pain Qualified Code(s): R07.2 - Precordial pain (4) Neutropenia Neutropenia type: unspecified Qualified Code(s): D70.9 - Neutropenia, unspecified
[2020-07-03] MEDS: HYDROmorphone INJ 0.5 MG/0.5 ML SYR IV PRN ×7 (00:50→21:33)
[2020-07-03] MEDS: KETOROLAC 30 MG/ML VIAL IV SCH ×2 (03:02→09:03)
[2020-07-03] MEDS: oxyCODONE/APAP 7.5/325MG TAB PO PRN ×2 (03:03→13:44)
[2020-07-03 06:51] LABS: Hemoglobin 7.8 g/dL (12.0-16.0); Mean Corpuscular Hemoglobin 41.7 pg (25-34); Mean Corpuscular Hgb Conc 35.5 g/dL (32-36); Mean Corpuscular Volume 117.6 fL (80-100); Mean Platelet Volume 9.1 fL (7.4-10.4); Nucleated RBC # (auto) 0.16 K/uL (0-0); Nucleated RBC % (auto) 4.5 %; Platelet Count 504 K/uL (130-400); RDW Coefficient of Variation 19.6 % (11.5-14.5); RDW Standard Deviation 82.9 fL (36.4-46.3); Red Blood Count 1.87 M/uL (4.2-5.4); Reticulocyte % 4.6 % (0.5-2.0); Reticulocytes # 0.09 10^6/uL (0.02-0.10); White Blood Count 3.65 K/uL (4.8-10.8)
[2020-07-03 07:25] LABS: Basophils # (auto) 0.01 K/uL (0-0.2); Basophils % (auto) 0.3 %; Eosinophils # (auto) 0.05 K/uL (0-0.5); Eosinophils % (auto) 1.4 %; Howell-Jolly Bodies Occasional; Lymphocytes # (auto) 2.73 K/uL (1.2-3.4); Lymphocytes % (auto) 74.8 %; Macrocytosis Present; Monocytes % (auto) 2.7 %; Neutrophils # (auto) 0.76 K/uL (1.4-6.5); Neutrophils % (auto) 20.8 %; Polychromasia 1+
[2020-07-03 07:26] LABS: BUN Creatinine Ratio 8.8 (10-20); Blood Urea Nitrogen 4 mg/dl (7-18); Calcium 8.9 mg/dl (8.5-10.1); Carbon Dioxide 28 mmol/L (21-32); Chloride 108 mmol/L (98-107); Creatinine Clr Calc Pharmacy 180.3 ml/min; Est GFR (African American) > 150.0 ml/min; Est GFR (Non-African American) 140.2 ml/min; Glucose 102 mg/dl (70-99); Potassium 3.4 mmol/L (3.5-5.1); Sodium 141 mmol/L (136-145); Target Cells 1+
[2020-07-03] MEDS ORDERED: POTASSIUM CHLORIDE CRTAB 20 MEQ TABCR PO STA (08:17)
[2020-07-03] MEDS: POLYETHYLENE (MIRALAX) 17 GM PACK PO SCH ×2 (09:07→21:37)
[2020-07-03] MEDS: SENNA 8.6 MG TAB PO SCH (09:08)
[2020-07-03] MEDS: ENOXAPARIN INJ 40 MG/0.4 ML SYR SQ SCH (09:09)
[2020-07-03] MEDS: HYDROXYUREA 500 MG CAP PO SCH ×2 (09:13→21:35)
[2020-07-03] MEDS: traMADol HCL 50 MG TABLET PO SCH ×2 (10:11→21:41)
[2020-07-03] MEDS: D5W AND 1/2NSS 1,000 ML IV SCH (12:13)
[2020-07-03] MEDS: ONDANSETRON INJ 2 MG/ML 2 ML VIAL IV PRN (13:44)
--- NOTE | 2020-07-03 20:20 | Hospitalist Progress Note ---
Date of Service July 03, 2020 Assessment & Plan (1) Neutropenia: etiology is uncertain. the sickle cell anemia should not be causing this. she had transient neutropenia during her stay in April and was self-limiting. she is not on any obvious meds contributing to this. could she have CMV, parvo, EBV, other viral etiology?? autoimmune disease (SLE)? anaplasmosis? other? EBV titers in 04/2020 showed old infection. Check anaplasmosis smear in am. Check CMV and parvo titers. Check IRA screen. Consider [facility] consultation. repeat CBC w/ diff AM. neutropenic precautions. will d/w Dr Dietrich for any other recommendations. (2) Sickle cell anemia with pain: Vaso-occlusive pain crisis. Ongoing. Continue IVF - 75cc/hr. Continue IV/PO pain meds (change Dilaudid to 0.5 mg IV every 2 hours prn, scheduled tramadol 100 mg twice daily, Percocet PRN). Continue hydroxyurea 1 g twice daily. Continue folate 2mg daily. Hb 7.8 today - will not transfuse, repeat CBC in am. Patient was to f/u with Dr. Dietrich in [facility] as outpatient following one of her recent admissions but she did not do so. Continues with considerable joint pain, myalgias, etc. See neutropenia -- does she have another underlying infectious or autoimmune issue?? (3) Depression: Cont cymbalta. Cont buspar. Follows with psych as outpatient. Treat insomnia. (4) Chest pain: CTA chest negative for infiltrates. COVID negative. Pain is likely sternal pain from vaso-occlusive pain crisis. k-pad prn. pain meds. toradol. (5) Insomnia: nice response to 25mg of doxepin at HS - continue. (6) Chronic pain syndrome: cont pain meds as noted above pain meds are prescribed by PCP at [facility] (7) DVT prophylaxis: lovenox 40mg daily Admission and Anticipated Discharge Date Admission Date: June 27, 2020 Subjective patient states doxepin worked well last night for insomnia. slept well through the night - requests it again tonight. she continues with pain - worse today - back, chest, "my joints." she acknowledges she had been improving, but now feels worse again. asks if dilaudid dosing interval can be adjusted. we had lengthy discussion about family history and illness exposures. she has had COVID vaccine x 2. 2nd dose was in May. does not spend time outdoors, in the [place]/hikes, etc. spends most time in [facility] [employer] [facility]. no family h/o autoimmune disease - denied family members with SLE, RA, sarcoid, etc. did have mild chills yesterday and some this am. when asked if she felt better after we empirically treated her for Lyme in 04/2020 she said "a little". received 2 weeks of doxy then. Review of Systems Constitutional: + body aches, + fatigue, + weakness and + anorexia; no fever and no chills Ear, Nose, Mouth, Throat: no nasal congestion and no sore throat Respiratory: no cough and no dyspnea Cardiovascular: as per Subjective / HPI and + chest pain; no edema Gastrointestinal: + nausea; no abdominal pain, no vomiting and no diarrhea/loose stools Genitourinary: no dysuria Musculoskeletal: + joint pain and + myalgia Integumentary: no rash Neurologic: + generalized weakness Psychiatric: + depression Physical Exam Constitutional: no acute distress and no altered mental status ENMT: external ear and nose normal, oropharynx normal Mouth: no oropharynx abnormality, no oral mucosal abnormality (no thrush ) and no tongue abnormality Respiratory: normal respiratory effort, lungs clear to auscultation Auscultation: + diminished lung sounds (bases) Cardiovascular: Rate/Rhythm: regular rate and regular rhythm Heart Sounds: normal S1, normal S2 and + murmur (1-2/6 GREYSON LSB ) Vessels: no JVD Extremities: no edema Gastrointestinal (Abdomen): normal bowel sounds, soft, nontender, no hepatosplenomegaly Musculoskeletal: no synovitis of any large or small joint Skin: + pallor; no rashes Neurologic: moves all extremities; no focal motor deficits Psychiatric: Orientation: alert and oriented x 3 Affect: + flat affect Results & Data Results & Data ([facility]) Vital Signs (Past 12 Hours) Vital Signs Temp Pulse Pulse Resp BP Pulse Ox 07/03/20 19:45 37.0 C 78 20 120/77 96 07/03/20 16:19 36.7 C 73 18 110/67 98 07/03/20 15:00 86 07/03/20 12:00 36.7 C 77 18 94/54 L 98 Laboratory Results Laboratory Results - last 24 hr 07/03/20 07/03/20 06:23 06:23 WBC 3.65 L RBC 1.87 L Hgb 7.8 L Hct 22.0 L MCV 117.6 H MCH 41.7 H MCHC 35.5 RDW Std Deviation 82.9 H RDW Coeff of Nando 19.6 H Plt Count 504 H MPV 9.1 Immature Gran % (Auto) 0.0 Neut % (Auto) 20.8 Lymph % (Auto) 74.8 [place] % (Auto) 2.7 Eos % (Auto) 1.4 Baso % (Auto) 0.3 Reticulocyte % (Auto) 4.6 H Neut # (Auto) 0.76 L* Lymph # (Auto) 2.73 [place] # (Auto) 0.10 L Eos # (Auto) 0.05 Baso # (Auto) 0.01 Reticulocyte # 0.09 Immature Gran # (Auto) 0.00 Absolute Nucleated RBC 0.16 H Nucleated RBC % (auto) 4.5 Polychromasia 1+ Macrocytosis Present Target Cells 1+ [place] Bodies Occasional Sodium 141 Potassium 3.4 L Chloride 108 H Carbon Dioxide 28 Anion Gap 6.0 BUN 4 L Creatinine 0.48 L Est Cr Clr Drug Dosing 180.3 Est GFR ( Amer) > 150.0 Est GFR (Non-Af Amer) 140.2 BUN/Creatinine Ratio 8.8 L Glucose 102 H Calcium 8.9 PG Care Time/CCT Total # of Minutes Spent Total Time Spent with Patient: Total time spent is greater than 50% in coordination of care (as documented) at patient's floor/unit and/or counseling patient: Coding Level of Care Code 87639 Subseq Hosp Care Lvl 3 Diagnoses Neutropenia D70.9 Neutropenia type: unspecified Sickle cell anemia with pain D57.00 Depression F32.9 Depression Type: major depressive disorder Major depression recurrence: unspecified whether recurrent Active/Remission status: remission status unspecified Chest pain R07.2 Chest pain type: precordial pain Insomnia G47.00 Insomnia type: unspecified Chronic pain syndrome G89.4 DVT prophylaxis Z29.9 (1) Depression Depression Type: major depressive disorder Major depression recurrence: unspecified whether recurrent Active/Remission status: remission status unspecified Qualified Code(s): F32.9 - Major depressive disorder, single episode, unspecified (2) Chest pain Chest pain type: precordial pain Qualified Code(s): R07.2 - Precordial pain (3) Insomnia Insomnia type: unspecified Qualified Code(s): G47.00 - Insomnia, unspecified (4) Neutropenia Neutropenia type: unspecified Qualified Code(s): D70.9 - Neutropenia, unspecified
[2020-07-03] MEDS: busPIRone 15 MG TAB PO SCH (21:35)
[2020-07-03] MEDS: DULoxetine HCL 60 MG CAP PO SCH (21:35)
[2020-07-03] MEDS: PANTOprazole 40 MG TAB PO SCH (21:35)
[2020-07-03] MEDS: DOXEPIN HCL 25 MG CAPSULE PO SCH (21:36)
[2020-07-03] MEDS: FOLIC ACID 1 MG TAB PO SCH (21:36)
[2020-07-04] MEDS: HYDROmorphone INJ 0.5 MG/0.5 ML SYR IV PRN ×8 (00:19→19:06)
[2020-07-04] MEDS: D5W AND 1/2NSS 1,000 ML IV SCH ×2 (00:20→12:36)
[2020-07-04 06:09] LABS: Hematocrit (blood only) 22.5 % (37-47); Hemoglobin 7.8 g/dL (12.0-16.0); Mean Corpuscular Hemoglobin 41.7 pg (25-34); Mean Corpuscular Hgb Conc 34.7 g/dL (32-36); Mean Corpuscular Volume 120.3 fL (80-100); Mean Platelet Volume 8.9 fL (7.4-10.4); Nucleated RBC # (auto) 0.17 K/uL (0-0); Nucleated RBC % (auto) 4.8 %; Platelet Count 534 K/uL (130-400); RDW Coefficient of Variation 19.4 % (11.5-14.5); RDW Standard Deviation 83.1 fL (36.4-46.3); Red Blood Count 1.87 M/uL (4.2-5.4); White Blood Count 3.51 K/uL (4.8-10.8)
[2020-07-04 06:46] LABS: BUN Creatinine Ratio 11.4 (10-20); Blood Urea Nitrogen 6 mg/dl (7-18); Calcium 8.1 mg/dl (8.5-10.1); Carbon Dioxide 29 mmol/L (21-32); Chloride 110 mmol/L (98-107); Creatinine Clr Calc Pharmacy 154.5 ml/min; Est GFR (African American) > 150.0 ml/min; Est GFR (Non-African American) 133.3 ml/min; Glucose 125 mg/dl (70-99); Potassium 3.7 mmol/L (3.5-5.1); Sodium 142 mmol/L (136-145)
[2020-07-04 07:30] LABS: Anisocytosis Present; Basophilic Stippling 1+; Eosinophils # (auto) 0.04 K/uL (0-0.5); Eosinophils % (auto) 1.1 %; Lymphocytes # (auto) 2.22 K/uL (1.2-3.4); Lymphocytes % (auto) 63.2 %; Monocytes # (auto) 0.11 K/uL (0.11-0.59); Monocytes % (auto) 3.1 %; Neutrophils # (auto) 1.14 K/uL (1.4-6.5); Neutrophils % (auto) 32.6 %; Ovalocytes 1+; Polychromasia 1+; Target Cells 2+
--- NOTE | 2020-07-04 08:35 | Ultrasound Report ---
US abdomen limited CLINICAL HISTORY: sickle cell anemia; assess size of spleen COMPARISON STUDY: Chest CT 06/30/2020. FINDINGS: Real-time sonographic imaging of the left upper quadrant was performed with small business sales representative images submitted. The spleen is atrophic measuring 5.5 cm in length. Heterogeneous echotexture within the spleen without calcification. No splenic masses are perisplenic fluid collections. Normal left k idney measuring 9.7 cm. No left-sided hydronephrosis. IMPRESSION: No change in the atrophic spleen measuring 5.5 cm in length. ACT 112: Negative or not required by law. Electronically signed by: Cortes Fletcher M.D. 07/04/2020 8:34 AM
[2020-07-04] MEDS: SENNA 8.6 MG TAB PO SCH (09:17)
[2020-07-04] MEDS: traMADol HCL 50 MG TABLET PO SCH ×2 (09:17→20:53)
[2020-07-04] MEDS: POLYETHYLENE (MIRALAX) 17 GM PACK PO SCH ×2 (09:17→20:51)
[2020-07-04] MEDS: HYDROXYUREA 500 MG CAP PO SCH ×2 (09:18→20:52)
[2020-07-04] MEDS: ENOXAPARIN INJ 40 MG/0.4 ML SYR SQ SCH (09:18)
[2020-07-04] MEDS: PANTOprazole 40 MG TAB PO SCH (20:51)
[2020-07-04] MEDS: DOXEPIN HCL 25 MG CAPSULE PO SCH (20:51)
[2020-07-04] MEDS: DULoxetine HCL 60 MG CAP PO SCH (20:52)
[2020-07-04] MEDS: busPIRone 15 MG TAB PO SCH (20:52)
[2020-07-04] MEDS: FOLIC ACID 1 MG TAB PO SCH (20:52)
--- NOTE | 2020-07-04 21:25 | Hospitalist Progress Note ---
Date of Service July 04, 2020 Assessment & Plan (1) Neutropenia: etiology uncertain. the sickle cell anemia should not be causing this. she had transient neutropenia during her stay in April and was self-limiting at that time. she is not on any obvious meds contributing to this. could she have CMV, parvo, EBV, other viral etiology?? autoimmune disease (SLE)? anaplasmosis? other? EBV titers in 04/2020 showed old infection. Anaplasmosis smear negative today; consider sending DNA; but, no signs/symptoms of tick-borne infection especially acute tick illness. CMV and parvo titers along with IRA pending. [facility] consultation requested given her prior +Western blot for Lyme, neutropenia, and ? of any other underlying infectious process. repeat CBC w/ diff AM. neutropenic precautions. (2) Sickle cell anemia with pain: Vaso-occlusive pain crisis. Ongoing but she appears improved. STOP IV Fluids today. Continue IV/PO pain meds (Dilaudid 0.5 mg IV every 2 hours prn, scheduled tramadol 100 mg twice daily, Percocet PRN). Continue hydroxyurea 1 g twice daily. Continue folate 2mg daily. Hb 7.8 today - will not transfuse, repeat CBC in am. Patient was to f/u with Dr. Dietrich in [facility] as outpatient following one of her recent admissions but she did not do so. Continues with considerable joint pain, myalgias, etc. See neutropenia -- does she have another underlying infectious or autoimmune issue?? (3) Depression: Cont cymbalta. Cont buspar. Follows with psych as outpatient. Treating her insomnia. (4) Chest pain: CTA chest negative for infiltrates. COVID negative. Pain is likely sternal pain from vaso-occlusive pain crisis. o2 sats wnl. (5) Insomnia: cont 25mg of doxepin at HS consider increase to 50mg if needed (6) Chronic pain syndrome: cont pain meds as noted above pain meds are prescribed by PCP at [facility] (7) DVT prophylaxis: lovenox 40mg daily encouraged her to be more active even offered a visit to [facility] d/c telemetry - has been normal the entire stay Admission and Anticipated Discharge Date Admission Date: June 27, 2020 Subjective didn't sleep as good last night thus, she slept much of the daytime today ordered out fast food for dinner eating fine per staff no new complaints does feel like she is getting closer to wanting discharge home we had lengthy discussion about her neutropenia and possible causes Review of Systems Constitutional: + fatigue; no fever, no chills and no anorexia Ear, Nose, Mouth, Throat: no sore throat Respiratory: no cough, no dyspnea and no dyspnea on exertion Cardiovascular: as per Subjective / HPI and + chest pain (sternal pain ) Gastrointestinal: + constipation; no abdominal pain, no early satiety, no nausea and no vomiting Genitourinary: no dysuria Musculoskeletal: + joint pain Integumentary: no rash Psychiatric: + depression and + abnormal sleep pattern Physical Exam Constitutional: no acute distress and no altered mental status ENMT: external ear and nose normal, oropharynx normal Respiratory: normal respiratory effort, lungs clear to auscultation Auscultation: + diminished lung sounds (bases) Cardiovascular: Rate/Rhythm: regular rate and regular rhythm Heart Sounds: normal S1, normal S2 and + murmur (1-2/6 GREYSON LSB ) Vessels: no JVD Extremities: no edema Gastrointestinal (Abdomen): normal bowel sounds, soft, nontender, no hepatosplenomegaly Skin: + pallor; no rashes Neurologic: moves all extremities; no focal motor deficits Psychiatric: Orientation: alert and oriented x 3 Affect: + flat affect Results & Data Results & Data ([facility]) Vital Signs (Past 12 Hours) Vital Signs Temp Pulse Pulse Resp BP Pulse Ox 07/04/20 19:35 37 C 79 17 95/60 L 100 07/04/20 15:00 83 07/04/20 11:51 36.7 C 102 H 19 112/70 98 Laboratory Results Laboratory Results - last 24 hr 07/04/20 07/04/20 07/04/20 05:51 05:51 05:51 WBC 3.51 L RBC 1.87 L Hgb 7.8 L Hct 22.5 L MCV 120.3 H MCH 41.7 H MCHC 34.7 RDW Std Deviation 83.1 H RDW Coeff of Nando 19.4 H Plt Count 534 H MPV 8.9 Immature Gran % (Auto) 0.0 Neut % (Auto) 32.6 Lymph % (Auto) 63.2 [place] % (Auto) 3.1 Eos % (Auto) 1.1 Baso % (Auto) 0.0 Neut # (Auto) 1.14 L Lymph # (Auto) 2.22 [place] # (Auto) 0.11 Eos # (Auto) 0.04 Baso # (Auto) 0.00 Immature Gran # (Auto) 0.00 Absolute Nucleated RBC 0.17 H Nucleated RBC % (auto) 4.8 Polychromasia 1+ Basophilic Stippling 1+ Anisocytosis Present Target Cells 2+ Ovalocytes 1+ Sodium 142 Potassium 3.7 Chloride 110 H Carbon Dioxide 29 Anion Gap 3.0 BUN 6 L Creatinine 0.56 L Est Cr Clr Drug Dosing 154.5 Est GFR ( Amer) > 150.0 Est GFR (Non-Af Amer) 133.3 BUN/Creatinine Ratio 11.4 Glucose 125 H Calcium 8.1 L IRA Screen Pending Anaplasma Smear See Comment CMV IgM Ab Pending CMV IgG Ab/TORCH Pending Parvovirus IgG Ab Index Pending Parvovirus IgM Ab Index Pending splenic u/s - atrophic spleen noted PG Care Time/CCT Total # of Minutes Spent Total Time Spent with Patient: Total time spent is greater than 50% in coordination of care (as documented) at patient's floor/unit and/or counseling patient: Coding Level of Care Code 26548 Subseq Hosp Care Lvl 2 Diagnoses Neutropenia D70.9 Neutropenia type: unspecified Sickle cell anemia with pain D57.00 Depression F32.9 Active/Remission status: remission status unspecified Depression Type: major depressive disorder Major depression recurrence: unspecified whether recurrent Chest pain R07.2 Chest pain type: precordial pain Insomnia G47.00 Insomnia type: unspecified Chronic pain syndrome G89.4 DVT prophylaxis Z29.9 (1) Insomnia Insomnia type: unspecified Qualified Code(s): G47.00 - Insomnia, unspecified (2) Depression Active/Remission status: remission status unspecified Depression Type: major depressive disorder Major depression recurrence: unspecified whether recurrent Qualified Code(s): F32.9 - Major depressive disorder, single episode, unspecified (3) Neutropenia Neutropenia type: unspecified Qualified Code(s): D70.9 - Neutropenia, unspecified (4) Chest pain Chest pain type: precordial pain Qualified Code(s): R07.2 - Precordial pain
[2020-07-05] MEDS: HYDROmorphone INJ 0.5 MG/0.5 ML SYR IV PRN ×6 (00:38→22:55)
[2020-07-05 08:14] LABS: Hematocrit (blood only) 22.2 % (37-47); Hemoglobin 7.9 g/dL (12.0-16.0); Mean Corpuscular Hemoglobin 42.2 pg (25-34); Mean Corpuscular Hgb Conc 35.6 g/dL (32-36); Mean Corpuscular Volume 118.7 fL (80-100); Mean Platelet Volume 9.4 fL (7.4-10.4); Nucleated RBC # (auto) 0.19 K/uL (0-0); Nucleated RBC % (auto) 5.4 %; Platelet Count 611 K/uL (130-400); RDW Coefficient of Variation 19.2 % (11.5-14.5); RDW Standard Deviation 82.3 fL (36.4-46.3); Red Blood Count 1.87 M/uL (4.2-5.4); Reticulocytes # 0.07 10^6/uL (0.02-0.10); White Blood Count 3.58 K/uL (4.8-10.8)
[2020-07-05 08:44] LABS: Anisocytosis Present; Basophils # (auto) 0.01 K/uL (0-0.2); Basophils % (auto) 0.3 %; Eosinophils # (auto) 0.03 K/uL (0-0.5); Eosinophils % (auto) 0.8 %; Lymphocytes # (auto) 2.72 K/uL (1.2-3.4); Monocytes # (auto) 0.11 K/uL (0.11-0.59); Monocytes % (auto) 3.1 %; Neutrophils # (auto) 0.71 K/uL (1.4-6.5); Neutrophils % (auto) 19.8 %; Poikilocytosis Present; Polychromasia 1+; Target Cells 1+
[2020-07-05] MEDS: traMADol HCL 50 MG TABLET PO SCH ×2 (09:34→20:55)
[2020-07-05] MEDS: HYDROXYUREA 500 MG CAP PO SCH ×2 (09:35→20:58)
[2020-07-05] MEDS: SENNA 8.6 MG TAB PO SCH (09:35)
[2020-07-05] MEDS: POLYETHYLENE (MIRALAX) 17 GM PACK PO SCH ×2 (09:36→21:06)
[2020-07-05] MEDS: ENOXAPARIN INJ 40 MG/0.4 ML SYR SQ SCH (09:36)
[2020-07-05] MEDS: oxyCODONE/APAP 7.5/325MG TAB PO PRN ×2 (13:22→22:26)
[2020-07-05] MEDS: DICLOFENAC SOD 1% GEL 100 GM TUBE EXT SCH ×3 (14:41→20:56)
--- NOTE | 2020-07-05 20:31 | Hospitalist Progress Note ---
Date of Service July 05, 2020 Assessment & Plan (1) Neutropenia: etiology uncertain. low ANC continues in the absence of fever or other new infectious symptoms. the sickle cell anemia should not be causing this. she also had transient neutropenia during her stay in April and was self-limitin g at that time. she is not on any obvious meds contributing to this. could she have CMV, parvo, EBV, other viral etiology?? autoimmune disease (SLE)? anaplasmosis? other? EBV titers in 04/2020 showed old infection. Anaplasmosis smear negative; check anaplasmosis DNA but doubt she has tick-borne infection from anaplasmosis. CMV and parvo titers along with IRA pending. [facility] consultation requested given her prior +Western blot for Lyme, neutropenia, and ? of any other underlying infectious process. repeat CBC w/ diff AM. neutropenic precautions. check ESR and ast/alt in am. has received COVID vaccine x 2 in the recent past. (2) Sickle cell anemia with pain: Vaso-occlusive pain crisis. Ongoing but improved. Start weaning dilaudid OFF - change to q4h dosing interval today, then q6h prn tomorrow, then d/c. Continue chronic tramadol BID. Percocet prn. Continue hydroxyurea 1 g twice daily. Continue folate 2mg daily. Hb 7.9 today - will not transfuse, repeat CBC in am. Patient was to f/u with Dr. Dietrich in [facility] as outpatient following one of her recent admissions but she did not do so. Continues with considerable joint pain, myalgias, etc. See neutropenia -- does she have another underlying infectious or autoimmune issue?? (3) Depression: Cont cymbalta. Cont buspar. Follows with psych as outpatient. Treating her insomnia. (4) Chest pain: CTA chest negative for infiltrates. COVID negative. Pain is likely sternal pain from vaso-occlusive pain crisis. o2 sats wnl. try voltaren gel 4gm qid to sternum for pain relief. (5) Insomnia: cont 25mg of doxepin at HS consider increase to 50mg if needed (6) Chronic pain syndrome: cont pain meds as noted above pain meds are prescribed by PCP at [facility] (7) DVT prophylaxis: lovenox 40mg daily again encouraged more activity - spends most of the day laying in bed anticipate d/c home soon (tomorrow or next) Admission and Anticipated Discharge Date Admission Date: June 27, 2020 Subjective no new events no new complaints back discomfort, chest discomfort - same as yesterday continues to order out fast food and this is delivered to her room she did state "I hope I can go home soon." Review of Systems Constitutional: + fatigue; no fever, no chills, no sweats, no weakness and no anorexia Ear, Nose, Mouth, Throat: no ear pain, no nasal congestion and no sore throat Respiratory: no cough, no dyspnea and no dyspnea on exertion Cardiovascular: + chest pain (tender over sternum ); no dyspnea on exertion, no orthopnea and no edema Gastrointestinal: no abdominal pain, no nausea, no vomiting and no diarrhea/loose stools Genitourinary: no dysuria Musculoskeletal: + back pain and + joint pain Integumentary: no rash Neurologic: no paresthesia Psychiatric: + depression and + abnormal sleep pattern Physical Exam Constitutional: no acute distress and no altered mental status ENMT: external ear and nose normal, oropharynx normal Mouth: no oropharynx abnormality, no oral mucosal abnormality (no thrush ) and no tongue abnormality Respiratory: normal respiratory effort, lungs clear to auscultation Auscultation: + diminished lung sounds (bases) Cardiovascular: Rate/Rhythm: regular rate and regular rhythm Heart Sounds: normal S1, normal S2 and + murmur (1-2/6 GREYSON LSB ) Vessels: no JVD Extremities: no edema Chest (Breasts): Additional Comments: tender to palpation over sternum Gastrointestinal (Abdomen): normal bowel sounds, soft, nontender, no hepatosplenomegaly Skin: no rashes Psychiatric: Orientation: alert and oriented x 3 Affect: + flat affect Results & Data Results & Data ([facility]) Vital Signs (Past 12 Hours) Vital Signs Temp Pulse Resp BP Pulse Ox 07/05/20 14:49 37.1 C 70 16 116/72 98 Laboratory Results Laboratory Results - last 24 hr 07/05/20 07:24 WBC 3.58 L RBC 1.87 L Hgb 7.9 L Hct 22.2 L MCV 118.7 H MCH 42.2 H MCHC 35.6 RDW Std Deviation 82.3 H RDW Coeff of Nando 19.2 H Plt Count 611 H MPV 9.4 Immature Gran % (Auto) 0.0 Neut % (Auto) 19.8 Lymph % (Auto) 76.0 [place] % (Auto) 3.1 Eos % (Auto) 0.8 Baso % (Auto) 0.3 Reticulocyte % (Auto) 4.0 H Neut # (Auto) 0.71 L* Lymph # (Auto) 2.72 [place] # (Auto) 0.11 Eos # (Auto) 0.03 Baso # (Auto) 0.01 Reticulocyte # 0.07 Immature Gran # (Auto) 0.00 Absolute Nucleated RBC 0.19 H Nucleated RBC % (auto) 5.4 Polychromasia 1+ Poikilocytosis Present Anisocytosis Present Target Cells 1+ IRA, parvo, CMV pending PG Care Time/CCT Total # of Minutes Spent Total Time Spent with Patient: Total time spent is greater than 50% in coordination of care (as documented) at patient's floor/unit and/or counseling patient: Coding Level of Care Code 17700 Subseq Hosp Care Lvl 2 Diagnoses Neutropenia D70.9 Neutropenia type: unspecified Sickle cell anemia with pain D57.00 Depression F32.9 Active/Remission status: remission status unspecified Depression Type: major depressive disorder Major depression recurrence: unspecified whether recurrent Chest pain R07.2 Chest pain type: precordial pain Insomnia G47.00 Insomnia type: unspecified Chronic pain syndrome G89.4 DVT prophylaxis Z29.9 (1) Insomnia Insomnia type: unspecified Qualified Code(s): G47.00 - Insomnia, unspecified (2) Depression Active/Remission status: remission status unspecified Depression Type: major depressive disorder Major depression recurrence: unspecified whether recurrent Qualified Code(s): F32.9 - Major depressive disorder, single episode, unspecified (3) Neutropenia Neutropenia type: unspecified Qualified Code(s): D70.9 - Neutropenia, unspecified (4) Chest pain Chest pain type: precordial pain Qualified Code(s): R07.2 - Precordial pain
[2020-07-05] MEDS: busPIRone 15 MG TAB PO SCH (20:56)
[2020-07-05] MEDS: DOXEPIN HCL 25 MG CAPSULE PO SCH (20:57)
[2020-07-05] MEDS: FOLIC ACID 1 MG TAB PO SCH (20:57)
[2020-07-05] MEDS: DULoxetine HCL 60 MG CAP PO SCH (20:57)
[2020-07-05] MEDS: PANTOprazole 40 MG TAB PO SCH (20:58)
[2020-07-06] MEDS: HYDROmorphone INJ 0.5 MG/0.5 ML SYR IV PRN ×2 (04:21→08:27)
[2020-07-06] MEDS: oxyCODONE/APAP 7.5/325MG TAB PO PRN (07:23)
[2020-07-06] MEDS: HYDROXYUREA 500 MG CAP PO SCH (08:30)
[2020-07-06] MEDS: ENOXAPARIN INJ 40 MG/0.4 ML SYR SQ SCH (08:30)
[2020-07-06] MEDS: POLYETHYLENE (MIRALAX) 17 GM PACK PO PRN (08:30)
[2020-07-06] MEDS: SENNA 8.6 MG TAB PO SCH (08:30)
[2020-07-06] MEDS: DICLOFENAC SOD 1% GEL 100 GM TUBE EXT SCH ×2 (08:31→12:52)
[2020-07-06] MEDS: POLYETHYLENE (MIRALAX) 17 GM PACK PO SCH (08:36)
[2020-07-06] MEDS: traMADol HCL 50 MG TABLET PO SCH (09:56)
[2020-07-06] MEDS ORDERED: HYDROmorphone INJ 0.5 MG/0.5 ML SYR IV PRN (11:20)
[2020-07-06 11:38] LABS: Hematocrit (blood only) 23.4 % (37-47); Hemoglobin 8.4 g/dL (12.0-16.0); Mean Corpuscular Hemoglobin 42.2 pg (25-34); Mean Corpuscular Hgb Conc 35.9 g/dL (32-36); Mean Corpuscular Volume 117.6 fL (80-100); Mean Platelet Volume 8.8 fL (7.4-10.4); Nucleated RBC # (auto) 0.27 K/uL (0-0); Nucleated RBC % (auto) 5.6 %; Platelet Count 626 K/uL (130-400); RDW Coefficient of Variation 19.8 % (11.5-14.5); Red Blood Count 1.99 M/uL (4.2-5.4); White Blood Count 4.77 K/uL (4.8-10.8)
[2020-07-06 12:17] LABS: Alanine Aminotransferase 40 U/L (12-78); Aspartate Aminotransferase 40 U/L (15-37)
--- NOTE | 2020-07-06 15:51 | Discharge Summary ---
Date of Service date of admission - June 27, 2020 date of discharge - July 06, 2020 Admission HPI Per Admitting Provider This is a 19-year-old female with past medical history of sickle cell disease that presents today complaining of sickle cell crisis. Patient is apparently been having issues over the past several months. She has had multiple admissions to this institution in April of this year and earlier in the year at [facility]. She was seen in the emergency room 06/22 but was discharged without admission as the patient was concerned about her college studies. Patient is now finished her finals at school and feels that she is not significant enough pain to return to the emergency room. Patient's pain is widespread, she is most concerned about pain in the mid chest. She has received morphine sulfate 4 mg x 3 doses, felt the pain is subsided with the third dose. Typically she uses Percocet 5/325 3 times daily as needed along with tramadol 100 mg twice daily at home. Patient denies any shortness of breath and vitals have been stable including an O2 sat of 100% on room air. Patient exhibits significant distress with medical establishment as she is worried how she is being perceived considering her narcotic requirements. She has previously investigated receiving care at the sickle cell clinic at [place]. She is also seen Dr. Dietrich in the past but his prior notes suggest the patient has had some issues with compliance. Principal Diagnosis 1. sickle cell vaso-occlusive pain crisis 2. neutropenia - uncertain cause Discharge Exam Constitutional no acute distress and no altered mental status ENMT Mouth: no oropharynx abnormality, no oral mucosal abnormality (no thrush ) and no tongue abnormality Respiratory normal respiratory effort, lungs clear to auscultation Auscultation: + diminished lung sounds (bases) Cardiovascular Rate/Rhythm: regular rate and regular rhythm Heart Sounds: normal S1, normal S2 and + murmur (1-2/6 GREYSON LSB ) Vessels: no JVD Extremities: no edema Gastrointestinal (Abdomen) normal bowel sounds, soft, nontender, no hepatosplenomegaly Skin no rashes Psychiatric Orientation: alert and oriented x 3 Affect: + flat affect Discharge Data Allergies Allergy/AdvReac Type Severity Reaction Status Date / Time No Known Allergies Allergy Verified 06/27/20 15:42 Consultations [facility] Infectious Diseases Ordered Studies Chest X-Ray 06/27/20 15:00 XR chest 1V portable CLINICAL HISTORY: chest pain COMPARISON STUDY: Chest radiograph June 22, 2020. FINDINGS: Lung volumes are normal. Lungs are clear. There is no pneumothorax or pleural effusion. Cardiac size is at the upper limits of normal. Mediastinal contours are normal. There is no evidence for pulmonary edema. IMPRESSION: No acute cardiopulmonary findings. ACT 112: Negative or not required by law. Electronically signed by: Carl Jay M.D. 06/27/2020 4:04 PM Chest CTA 06/30/20 13:17 CT ANGIOGRAM OF THE CHEST CLINICAL HISTORY: Shortness of breath. Possible acute pulmonary embolism. COMPARISON STUDY: 04/12/2019 TECHNIQUE: Following the IV administration of 120 mL of Optiray, CT angiogram of the thorax was performed from the thoracic inlet to the lung bases utilizing the pulmonary embolus protocol. Images are reviewed in the axial, sagittal, and coronal planes. IV contrast was administered without complication. MIP imaging was performed. A dose lowering technique was utilized adhering to the principles of ALARA. CT DOSE: 385.64 mGy.cm FINDINGS: There are mildly prominent bilateral axillary lymph nodes, similar to the prior study and likely reactive. There is no pathologic mediastinal or hilar lymphadenopathy There was no evidence of thoracic aortic dilatation. There were no pulmonary artery filling defects to indicate acute pulmonary embolism. No pleural effusions are visualized. There are minimal left basilar atelectatic changes. There was no evidence of focal pulmonary consolidation. There are bony findings suggesting underlying sickle cell anemia IMPRESSION: 1. No evidence of acute pulmonary embolism 2. No evidence of focal pulmonary consolidation 3. Bony findings consistent with underlying sickle cell anemia ACT 112: Negative or not required by law. Electronically signed by: Jacob Phillips M.D. 06/30/2020 2:40 PM Abdomen Ultrasound 07/04/20 08:30 US abdomen limited CLINICAL HISTORY: sickle cell anemia; assess size of spleen COMPARISON STUDY: Chest CT 06/30/2020. FINDINGS: Real-time sonographic imaging of the left upper quadrant was performed with international representative images submitted. The spleen is atrophic measuring 5.5 cm in length. Heterogeneous echotexture within the spleen without calcification. No splenic masses are perisplenic fluid collections. Normal left kidney measuring 9.7 cm. No left-sided hydronephrosis. IMPRESSION: No change in the atrophic spleen measuring 5.5 cm in length. ACT 112: Negative or not required by law. Electronically signed by: Cortes Fletcher M.D. 07/04/2020 8:34 AM Hospital Course (1) Sickle cell anemia with pain: Vaso-occlusive pain crisis. Treated in customary fashion with IV fluids, IV pain meds, and supportive care. She did not require transfusional support while hospitalized. There was no evidence of acute chest syndrome or obvious infectious process while here. Hemoglobin at discharge was 8.4 (baseline 9-10). She was maintained on hydroxyurea 1 g twice daily and folate 2mg daily. Patient was to f/u with Dr. Jp Dietrich [facility] following one of her recent admissions but she did not do so. She was strongly encouraged to follow-up with him given her frequent vaso- occlusive pain episodes as well as her recurrent neutropenia. At discharge her pain was relatively controlled. She will continue her usual pain meds for chronic pain as prescribed by her PCP at [facility]. (2) Neutropenia: etiology uncertain. low ANC was present in the absence of fever or other infectious symptoms. ANC ranged 710-1500, with 710 count at time of discharge. the sickle cell anemia should not be causing this directly. she also had transient neutropenia during her stay in April 2020 and was self- limiting at that time. she is not on any obvious meds contributing to this. EBV titers in 04/2020 showed old infection. Anaplasmosis smear and anaplasmosis DNA were both negative. CMV titer was negative. Parvovirus titer was negative. IRA screen for autoimmune disease was negative. COVID testing was negative, and she had had COVID vaccination x 2 earlier this year. [facility] consultation was requested given her prior history of positive Western blot for Lyme, neutropenia, and ? of any other underlying infectious process. [facility] did not feel she had any active infectious issue contributing to the neutropenia. She will need repeat CBC and close hematological follow-up post-discharge for this. (3) Depression: Cont cymbalta. Cont buspar. Follows with psych as outpatient. (4) Chest pain: CTA chest negative for infiltrates. COVID negative. o2 sats were wnl. She had no evidence of acute chest syndrome. Pain was likely sternal pain from vaso-occlusive pain crisis or costochondritis type pain. voltaren gel 4gm qid to sternum for pain was effective. (5) Insomnia: Started on 25mg of doxepin at HS with decent improvement in sleep. Small prescription was given for such at discharge. (6) Chronic pain syndrome: cont pain meds as noted above pain meds are prescribed by PCP at [facility] of note - patient was not given narcotic prescriptions or refills at discharge Total Time Total Time Spent Total Time Spent (In Minutes): 45 Total Time Includes: Examination of the Patient, Discharge Planning, Medication Reconciliation and Communication With Other Providers Discharge Plan Discharge Items Patient Disposition: Home - Self-Care Reason For Visit: SICKLE CELL PAIN CRISIS Discharge Diagnosis: 1. sickle cell pain crisis - resolved 2. neutropenia (low neutrophils, a type of white blood cell) - exact cause uncertain - follow-up needed with Dr Dietrich 3. chronic sleep troubles/insomnia 4. sternum pain - due to #1 Condition on Discharge: Good Activity: Resume your previous activity Non-emergency contact: Primary Care Provider and Oncologist Call non-emergency contact if: you have any medication questions, your symptoms worsen, your pain is not controlled, your pain is worsening, your pain is unus ual for you, your pain is concerning for you and you have a fever Follow-up/Referrals: Jp Dietrich DO [Physician] - 07/19/20 3:10 pm (please call a few days before if cancelling appointment) Zamzam Bailey MD [Primary Care Provider] - 07/13/20 2:10 pm Diet: Regular Addtl Attending Provider Instructions: James, You were treated for a sickle cell pain crisis during your stay. This improved gradually with IV fluids, IV and oral pain medications, and time. On several days your CBC blood counts showed something called "neutropenia." This is when the neutrophils - a type of white blood cells - are low. Neutrophils fight bacterial infections. Neutrophils can go low when you have viral infections, autoimmune disease, certain types of tick-borne illnesses, and can also be suppressed by various types of medications. The exact cause of your neutropenia is uncertain. The infection doctor from [facility] does not feel that you have any active infection at this time. However, several lab tests are pending at time of discharge to rule out various conditions that could be causing this. Dr Dietrich is aware of this problem and it is very important that you follow-up with him for this, as well as your sickle cell anemia. For your sleep you may take doxepin 25mg about 30-40 minutes before bedtime. Take as needed. Please follow-up with Dr Bailey and Dr Dietrich as scheduled. Finally, for your constipation, continue to take a combination of miralax and senakot - both [id number]. Return to [facility] if - * you have fever over 100.5 degrees * you have worsening sickle pain * you have shortness of breath * you have worsening chest pains * any other concerns Stay well, and have a good summer! -Dr Henry Pending Studies at Discharge: Yes Studies:: Testing for CMV virus, parvovirus; IRA (screening test for autoimmune diseases); anaplasmosis test (a tick borne illness) Stand-Alone Forms: My [facility], Opioid Pain Management, Smoking Cessation Medications and DC Order Prescriptions: New diclofenac sodium [Voltaren] 1 % Gel 4 g EXT QID PRN (Reason: pain) Qty: 150 RF: 0 doxepin 25 mg Capsule 25 mg PO HS PRN (Reason: sleep) Qty: 10 RF: 0 polyethylene glycol 3350 [Miralax] 17 gram Powder In Packet 17 g PO BID Qty: 100 RF: 0 sennosides [Senokot] 8.6 mg Tablet 17.2 mg PO QAM Qty: 60 RF: 0 Continued folic acid 1 mg Tablet 2 mg PO HS RF: 0 pantoprazole 40 mg tablet,delayed release (DR/EC) 40 mg PO HS RF: 0 buspirone 15 mg tablet 45 mg PO HS RF: 0 duloxetine 60 mg capsule,delayed release(DR/EC) 60 mg PO HS RF: 0 hydroxyurea 500 mg Capsule 1,000 mg PO BID 30 Days Qty: 120 RF: 1 oxycodone-acetaminophen 5-325 mg tablet 1 tab PO TID PRN (Reason: Pain) RF: 0 Discharge Orders: Discharge Order (Routine); Ordered 07/06/20 Ordered By: Yazan Henry Admission Data Admit Date/Time: 06/27/20 18:20 Attending Provider: Yazan Henry Admit Provider: Lokesh Rabago Primary Care Provider: Zamzam Bailey Other Providers: Guicho Diana Other Interventions: Discharge Summary Assessment (RN) Last Done: 07/06/20 15:50 Coding Level of Care Code D/C Day Management >30 mins Diagnoses Sickle cell anemia with pain D57.00 Neutropenia D70.9 Neutropenia type: unspecified Depression F32.9 Active/Remission status: remission status unspecified Depression Type: major depressive disorder Major depression recurrence: unspecified whether recurrent Chest pain R07.2 Chest pain type: precordial pain Insomnia G47.00 Insomnia type: unspecified Chronic pain syndrome G89.4
[2020-07-07 12:09] LABS: Anti Nuclear Antibody Screen NEGATIVE (NEGATIVE); CMV IgG Antibody >10.00 U/mL; CMV IgM Antibody <30.00 AU/mL; Parvovirus IgG 0.2 (<0.9); Parvovirus IgM 0.1 (<0.9)
== END 2020-07-06 16:30 | disposition home or self-care (01) ==
LOC: ED 14:12 → 2N 18:20 → SUATTDRO 18:20 → 2N 20:00 → 3N 07-05 00:50

== ENCOUNTER 2020-07-25 23:13 | Inpatient (IN) ==
[2020-07-26] MEDS ORDERED: ACETAMINOPHEN 1,000 MG/100 ML VIAL IV STA (00:14)
[2020-07-26] MEDS ORDERED: D5W AND 1/2NSS 1,000 ML IV STA (00:14)
[2020-07-26] MEDS ORDERED: MAGNESIUM SULFATE / D5W 1 GM/100 ML BAG IV STA (00:15)
[2020-07-26] MEDS ORDERED: ONDANSETRON INJ 2 MG/ML 2 ML VIAL IV STA (00:15)
[2020-07-26] MEDS: HYDROmorphone INJ 1 MG/ML SYRINGE IV PRN ×2 (00:48→01:46)
[2020-07-26 00:53] LABS: Basophils # (auto) 0.04 K/uL (0-0.2); Basophils % (auto) 0.5 %; Eosinophils % (auto) 1.2 %; Hematocrit (blood only) 27.5 % (37-47); Hemoglobin 9.8 g/dL (12.0-16.0); Immature Granulocytes # (auto) 0.02 K/uL (0.00-0.02); Immature Granulocytes % (auto) 0.2 %; Lymphocytes # (auto) 3.45 K/uL (1.2-3.4); Lymphocytes % (auto) 41.8 %; Mean Corpuscular Hemoglobin 39.7 pg (25-34); Mean Corpuscular Hgb Conc 35.6 g/dL (32-36); Mean Corpuscular Volume 111.3 fL (80-100); Mean Platelet Volume 9.3 fL (7.4-10.4); Monocytes # (auto) 0.67 K/uL (0.11-0.59); Monocytes % (auto) 8.1 %; Neutrophils # (auto) 3.98 K/uL (1.4-6.5); Neutrophils % (auto) 48.2 %; Nucleated RBC # (auto) 0.03 K/uL (0-0); Nucleated RBC % (auto) 0.3 %; Platelet Count 256 K/uL (130-400); RDW Coefficient of Variation 18.9 % (11.5-14.5); RDW Standard Deviation 77.7 fL (36.4-46.3); Red Blood Count 2.47 M/uL (4.2-5.4); Reticulocyte % 6.7 % (0.5-2.0); Reticulocytes # 0.17 10^6/uL (0.02-0.10); White Blood Count 8.26 K/uL (4.8-10.8)
[2020-07-26 01:04] LABS: Partial Thromboplastin Ratio 0.8; Partial Thromboplastin Time 21.3 Seconds (21.0-31.0); Prothrombin Time 10.5 Seconds (9.0-12.0)
[2020-07-26 01:12] LABS: Alanine Aminotransferase 27 U/L (12-78); Albumin Level 3.9 gm/dl (3.4-5.0); Aspartate Aminotransferase 24 U/L (15-37); BUN Creatinine Ratio 23.1 (10-20); Blood Urea Nitrogen 11 mg/dl (7-18); Calcium 8.3 mg/dl (8.5-10.1); Carbon Dioxide 25 mmol/L (21-32); Chloride 112 mmol/L (98-107); Creatinine Clr Calc Pharmacy 175.8 ml/min; Est GFR (African American) > 150.0 ml/min; Est GFR (Non-African American) 140.2 ml/min; Glucose 101 mg/dl (70-99); Potassium 3.8 mmol/L (3.5-5.1); Sodium 143 mmol/L (136-145)
[2020-07-26 01:14] LABS: Albumin Globulin Ratio 0.9 (0.9-2); Alkaline Phosphatase 80 U/L (45-117); Bilirubin,Total 1.3 mg/dl (0.2-1); Globulin 4.2 gm/dl (2.5-4.0); Total Protein 8.1 gm/dl (6.4-8.2)
[2020-07-26 01:21] LABS: Howell-Jolly Bodies Occasional; Macrocytosis Present; Pappenheimer Bodies 1+; Polychromasia 1+; Sickle Cells Occasional; Target Cells 1+
[2020-07-26 02:04] LABS: Pregnancy Test, Serum Negative (Negative)
--- NOTE | 2020-07-26 03:05 | History & Physical Report ---
Date of Service July 26, 2020 Assessment & Plan (1) Sickle cell anemia: 20yo female with SSA presenting with acute pain crisis. Patient is afebrile, HD stable. Mild chest pain. Complaining of diffuse body pain. No neurological compromise. Labs reveal stable macrocytic anemia with Hgb=9.8, Hct=27.5, RRS=199. Elevated reticulocyte count at 6.7, Elevated Tbili at 1.3. No infiltrate noted on CXR. No concern for acute chest syndrome at this time. No obvious precipitating factors -Admit to medical floor -2L O2 by NC -1/2 NSS at 100 mL/hr x 2 liters -Pain control with Toradol PRN -Dilaudid 0.5mg q hourly as needed -Zofran PRN nausea -Incentive spirometry -Monitor CBC, Reticulocyte count -Continue PO Folic acid and Hydroxyurea Present on Admission?: Yes (2) GERD (gastroesophageal reflux disease): Chronic. Well controlled -Continue Protonix 40mg po qHS Present on Admission?: Yes (3) Depression: Chronic. Patient states that her moods are well controlled -Continue Buspirone 45mg po qHS -Continue Doxepin 25mg po qHS -Continue Duloxetine 60mg po qHS F/E/N - 1/2 NSS at 100mL/hr, electrolytes wnl, Regular diet as tolerated Ppx - Ambulation and IVF Code -Full Dispo - Admit to medical Present on Admission?: Yes History of Present Illness Chief Complaint: sickle cell pain crisis Primary Care Provider: Zamzam Bailey MD Donta Early is a 20yo female with history of Sickle Cell Anemia, AVN of bilateral hips, PNES, GERD and Depression presenting with complaints of body pain consistent with her sickle cell pain crises. Patient reports chronic body pain. She presents today with acute worsening of severe pain - predominantly in her abdomen, back, legs and arms. She has some mild chest pain as well. She denies fevers/chills/cough/SOB. She has had some nausea but denies vomiting/diarrhea. No additional complaints. ER Course: Zofran, magnesium, Dilaudid, Tylenol, Dextrose/NSS Allergies Allergy/AdvReac Type Severity Reaction Status Date / Time No Known Allergies Allergy Verified 07/26/20 00:08 Home Medications Medication Instructions Recorded Confirmed Type folic acid 2 mg PO HS 11/18/19 07/26/20 History buspirone 45 mg PO HS 01/22/20 07/26/20 History pantoprazole 40 mg PO HS 01/22/20 07/26/20 History duloxetine 60 mg PO HS 04/17/20 07/26/20 History hydroxyurea 1,000 mg PO BID 30 Days #120 cap 05/01/20 07/26/20 Rx oxycodone-acetaminophen 1 tab PO TID PRN 05/07/20 07/26/20 History doxepin 25 mg PO HS PRN #10 cap 07/06/20 07/26/20 Rx polyethylene glycol 3350 [Miralax] 17 g PO BID #100 ea 07/06/20 07/26/20 Rx sennosides [Senokot] 17.2 mg PO QAM #60 tab 07/06/20 07/26/20 Rx diclofenac sodium [Voltaren] 4 g TOPICAL QID 07/26/20 07/26/20 History Past Med/Surg History Medical History (Updated 07/26/20 @ 02:57 by Jaymie Castrejon DO) Borderline personality disorder Depression Murmur, cardiac Nausea Pneumonia Pseudoseizures Seizure-like activity Sickle cell anemia Sickle cell crisis Suicide gesture Surgical History No pertinent past surgical history Family History Mother Hypertension Father Ulcer Other Family history non-contributory Social History Smoking Status: Never smoker Tobacco Type: E-cigarettes / Vaping Second Hand Exposure: Yes; Hx Alcohol Use: Yes Alcohol type: hard liquor Hx Substance Use: No Preferred Language: Romanian Communication Ability: Effective Director Of Counseling Required: No Beliefs That Will Affect Care: None marital status: Single Current Living Situation: Other Current Living Situation Comment: apartment with roommates 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 current occupation: [employer] major Feels Safe at Home: Yes Assistive Devices: None Review of Systems Review of Systems: All systems reviewed & are unremarkable except as noted in HPI & below Physical Exam Physical Exam: General: NAD, appear uncomfortable but non-toxic in appearance, AA&O x 4 Skin: warm, dry, intact, no rashes or lesions HEENT: NC/AT, PERRL, EOMI, anicteric sclera, conjunctiva without injection, external ear normal to inspection and nontender, nares patent, moist mucus membranes, dentition intact, no oropharyngeal lesions, neck supple, trachea midline, no LAD, no thyromegaly, no JVD Heart: +S1/S2, regular, no m/r/g Lungs: equal air entry bilaterally, no rales/rhonchi/wheezes Abd: +BS, soft, ND, tender to palpation with no rebound/guarding/peritoneal signs, no masses/organomegaly/ascites Ext: warm, 2+ pulses in UE/LE bilaterally, no clubbing/cyanosis or edema Neuro: nonfocal, patient AA&O x 4, speech intact, no facial droop, moving all extremities on command with equal strength 5/5 Results & Data Results & Data ([facility]) Vital Signs (Past 12 Hours) Vital Signs Temp Pulse Pulse Resp BP BP Pulse Ox 07/26/20 02:02 82 14 113/81 98 07/26/20 01:32 68 14 113/64 98 07/25/20 23:19 36.7 C 92 H 18 115/69 97 Laboratory Results Laboratory Results WBC 8.26 K/uL (4.8-10.8) 07/26/20 00:43 RBC 2.47 M/uL (4.2-5.4) L 07/26/20 00:43 Hgb 9.8 g/dL (12.0-16.0) L 07/26/20 00:43 Hct 27.5 % (37-47) L 07/26/20 00:43 MCV 111.3 fL (80-100) H 07/26/20 00:43 MCH 39.7 pg (25-34) H 07/26/20 00:43 MCHC 35.6 g/dL (32-36) 07/26/20 00:43 RDW Std Deviation 77.7 fL (36.4-46.3) H 07/26/20 00:43 RDW Coeff of Nando 18.9 % (11.5-14.5) H 07/26/20 00:43 Plt Count 256 K/uL (130-400) 07/26/20 00:43 MPV 9.3 fL (7.4-10.4) 07/26/20 00:43 Immature Gran % (Auto) 0.2 % 07/26/20 00:43 Neut % (Auto) 48.2 % 07/26/20 00:43 Lymph % (Auto) 41.8 % 07/26/20 00:43 [place] % (Auto) 8.1 % 07/26/20 00:43 Eos % (Auto) 1.2 % 07/26/20 00:43 Baso % (Auto) 0.5 % 07/26/20 00:43 Reticulocyte % (Auto) 6.7 % (0.5-2.0) H 07/26/20 00:43 Neut # (Auto) 3.98 K/uL (1.4-6.5) 07/26/20 00:43 Lymph # (Auto) 3.45 K/uL (1.2-3.4) H 07/26/20 00:43 [place] # (Auto) 0.67 K/uL (0.11-0.59) H 07/26/20 00:43 Eos # (Auto) 0.10 K/uL (0-0.5) 07/26/20 00:43 Baso # (Auto) 0.04 K/uL (0-0.2) 07/26/20 00:43 Reticulocyte # 0.17 10^6/uL (0.02-0.10) H 07/26/20 00:43 Immature Gran # (Auto) 0.02 K/uL (0.00-0.02) 07/26/20 00:43 Absolute Nucleated RBC 0.03 K/uL (0-0) H 07/26/20 00:43 Nucleated RBC % (auto) 0.3 % 07/26/20 00:43 Polychromasia 1+ 07/26/20 00:43 Macrocytosis Present 07/26/20 00:43 Pappenheimer Bodies 1+ 07/26/20 00:43 Sickle Cells Occasional 07/26/20 00:43 Target Cells 1+ 07/26/20 00:43 Booth-Isabella Bodies Occasional 07/26/20 00:43 PT 10.5 Seconds (9.0-12.0) 07/26/20 00:43 INR 1.0 (0.9-1.1) 07/26/20 00:43 APTT 21.3 Seconds (21.0-31.0) 07/26/20 00:43 PTT Ratio 0.8 07/26/20 00:43 Sodium 143 mmol/L (136-145) 07/26/20 00:43 Potassium 3.8 mmol/L (3.5-5.1) 07/26/20 00:43 Chloride 112 mmol/L (98-107) H 07/26/20 00:43 Carbon Dioxide 25 mmol/L (21-32) 07/26/20 00:43 Anion Gap 6.0 (3-11) 07/26/20 00:43 BUN 11 mg/dl (7-18) 07/26/20 00:43 Creatinine 0.47 mg/dl (0.6-1.2) L 07/26/20 00:43 Est Cr Clr Drug Dosing 175.8 ml/min 07/26/20 00:43 Est GFR ( Amer) > 150.0 ml/min 07/26/20 00:43 Est GFR (Non-Af Amer) 140.2 ml/min 07/26/20 00:43 BUN/Creatinine Ratio 23.1 (10-20) H 07/26/20 00:43 Glucose 101 mg/dl (70-99) H 07/26/20 00:43 Calcium 8.3 mg/dl (8.5-10.1) L 07/26/20 00:43 Total Bilirubin 1.3 mg/dl (0.2-1) H 07/26/20 00:43 AST 24 U/L (15-37) 07/26/20 00:43 ALT 27 U/L (12-78) 07/26/20 00:43 Alkaline Phosphatase 80 U/L (45-117) 07/26/20 00:43 Total Protein 8.1 gm/dl (6.4-8.2) 07/26/20 00:43 Albumin 3.9 gm/dl (3.4-5.0) 07/26/20 00:43 Globulin 4.2 gm/dl (2.5-4.0) H 07/26/20 00:43 Albumin/Globulin Ratio 0.9 (0.9-2) 07/26/20 00:43 HCG, Qual Negative (Negative) 07/26/20 00:44 COVID-19 Eval Order Covid19 at [facility] 07/26/20 01:35 SARS-CoV-2 (PCR) NEGATIVE (Negative) 07/26/20 01:35 Blood Type B Positive 07/26/20 00:43 Antibody Screen NEGATIVE 07/26/20 00:43 PG Care Time/CCT Total # of Minutes Spent Total Time Spent with Patient: Total time spent is greater than 50% in coordination of care (as documented) at patient's floor/unit and/or counseling patient: Coding Level of Care Code 67514 Initial Inpt Care Lvl 2 Diagnoses Sickle cell anemia D57.00 Sickle-cell associated disorders: with unspecified crisis GERD (gastroesophageal reflux disease) K21.9 Esophagitis presence: esophagitis presence not specified Depression F33.2 Active/Remission status: currently active Depression Type: major depressive disorder Major depression episode severity: severe Major depression recurrence: recurrent Psychotic features: without psychotic features (1) GERD (gastroesophageal reflux disease) Esophagitis presence: esophagitis presence not specified Qualified Code(s): K21.9 - Gastro-esophageal reflux disease without esophagitis (2) Sickle cell anemia Sickle-cell associated disorders: with unspecified crisis Qualified Code(s): D57.00 - Hb-SS disease with crisis, unspecified (3) Depression Active/Remission status: currently active Depression Type: major depressive disorder Major depression episode severity: severe Major depression recurrence: recurrent Psychotic features: without psychotic features Qualified Code(s): F33.2 - Major depressive disorder, recurrent severe without psychotic features
[2020-07-26] MEDS: SODIUM CHLORIDE 0.45 % 1,000 ML IV SCH ×2 (03:30→13:53)
[2020-07-26] MEDS: HYDROmorphone INJ 0.5 MG/0.5 ML SYR IV PRN ×3 (03:55→08:50)
[2020-07-26] MEDS: ONDANSETRON INJ 2 MG/ML 2 ML VIAL IV PRN ×3 (03:55→20:54)
[2020-07-26] MEDS: KETOROLAC TROMETHAMINE 15 MG/ML VIAL IV PRN ×2 (03:55→21:00)
[2020-07-26 07:08] LABS: Reticulocyte % 6.4 % (0.5-2.0); Reticulocytes # 0.15 10^6/uL (0.02-0.10)
--- NOTE | 2020-07-26 08:09 | XRay Report ---
XR chest 1V portable CLINICAL HISTORY: Pt c/o sickle cell crisis COMPARISON STUDY: 06/27/2020 FINDINGS: The cardiac and mediastinal contours are normal. There is no evidence of focal pulmonary co nsolidation. There is no evidence of failure. No pleural effusions are visualized.[There are H shaped vertebra, finding consistent with the clinical history of sickle cell disease. IMPRESSION: No active disease in the chest. ACT 112: Negative or not required by law. Electronically signed by: Jacob Phillips M.D. 07/26/2020 8:07 AM
--- NOTE | 2020-07-26 08:26 | Hospitalist Progress Note ---
Date of Service July 26, 2020 Assessment & Plan (1) Vaso-occlusive sickle cell crisis: 20yo female with SSA presenting with acute pain crisis. Patient is afebrile, HD stable. Mild chest pain. Complaining of diffuse body pain. No neurological compromise. Labs reveal stable macrocytic anemia with Hgb=9.8, Hct=27.5, WNR=523. Elevated reticulocyte count at 6.7, Elevated Tbili at 1.3. No infiltrate noted on CXR. No concern for acute chest syndrome at this time. No obvious precipitating factors Sickle cell crisis Satting well on room air Continue folic acid, hydroxyurea PO Dilauded discontinued per patient preference Pain control with toradol, morphine Continue zofran prn for nausea Continue incentive spirometry Daily CBC, reticulocyte count GERD Chronic, well-controlled Continue protonix PO Depression Chronic, well-controlled at this time per patient Continue buspirone, doxepin, duloxetine FEN: regular diet, 1/2NSS at 100mL/hr Code status: full code DVT ppx: ambulation Isolation: none Consults: none Dispo: med/surg (2) Sickle cell anemia: (3) GERD (gastroesophageal reflux disease): (4) Depression: Admission and Anticipated Discharge Date Admission Date: July 26, 2020 Supervising Physician Co-Signing Physician Notes I personally examined the patient and verified all amaro points of history and exam, discussed case, and agree with decision making with Dr German ongoing pain vitals noted nad heent nc at mmm breathing unlabored no accessory muscles good effort skin no rashes no pallor or icterus sickle cell w vasocclusive (and probably complicated multifactorial) pain -sickle vasocclusive pain, also possibly narcotics hyperalgesia, ?other chronic pain physiology -acute management for now - morphine/fluids/time --->work towards sickle clinic as outpt, pain management eval, possibly pain psychology. she notes she tries to minimize narcotics at home but still has excess pain making this difficult/if not impossible at home otherwise as above Subjective Patient seen and evaluated at bedside this morning. Endorses leg pain and feeling "terrible" overall. Denies CP or SOB at this time. No confusion, dizziness, slurred speech, or other neurologic symptoms at this time. Patient has no new concerns at this time and is asking to be allowed to sleep. Review of Systems Review of Systems: See HPI Physical Exam Physical Exam: Constitutional: well-appearing, no acute distress CV: regular rhythm, no murmur appreciated, extremities well-perfused Resp: CTABL, no wheezes/rales/rhonchi appreciated, no increased work of breathing GI: soft, nondistended, nontender, BS normoactive MSK: no gross deformities appreciated Skin: warm, dry, no rash appreciated Neuro: AOx4, no focal neurological deficits appreciated, speech not slurred, no facial droop Psych: cooperative, pleasant, appropriate rate/volume/quantity of speech Results & Data Results & Data ([facility]) Vital Signs (Past 12 Hours) Vital Signs Temp Pulse Pulse Resp BP BP Pulse Ox 07/26/20 07:17 36.5 C 89 18 107/69 98 07/26/20 03:20 36.5 C 65 18 104/63 100 07/26/20 03:10 68 18 115/70 100 07/26/20 02:02 82 14 113/81 98 07/26/20 01:32 68 14 113/64 98 07/25/20 23:19 36.7 C 92 H 18 115/69 97 Resident Activity Tracking Resident Involvement: Resident Care Provided Care Provided: Adult Hospital Medicine (1) Sickle cell anemia Sickle-cell associated disorders: with unspecified crisis Qualified Code(s): D57.00 - Hb-SS disease with crisis, unspecified (2) Depression Active/Remission status: currently active Depression Type: major depressive disorder Major depression episode severity: severe Major depression recurrence: recurrent Psychotic features: without psychotic features Qualified Code(s): F33.2 - Major depressive disorder, recurrent severe without psychotic features (3) GERD (gastroesophageal reflux disease) Esophagitis presence: esophagitis presence not specified Qualified Code(s): K21.9 - Gastro-esophageal reflux disease without esophagitis
[2020-07-26] MEDS: DICLOFENAC SOD 1% GEL 100 GM TUBE EXT SCH ×4 (08:46→20:48)
[2020-07-26] MEDS: SENNA 8.6 MG TAB PO SCH (08:48)
[2020-07-26] MEDS: HYDROXYUREA 500 MG CAP PO SCH ×2 (08:48→20:49)
[2020-07-26] MEDS: MoRPHine SULFATE 4 MG/ML 1 ML CARP\\VIAL IV PRN ×5 (11:30→21:30)
[2020-07-26] MEDS: busPIRone 15 MG TAB PO SCH (20:48)
[2020-07-26] MEDS: DULoxetine HCL 60 MG CAP PO SCH (20:49)
[2020-07-26] MEDS: FOLIC ACID 1 MG TAB PO SCH (20:49)
[2020-07-26] MEDS: PANTOprazole 40 MG TAB PO SCH (20:50)
[2020-07-27] MEDS: MoRPHine SULFATE 4 MG/ML 1 ML CARP\\VIAL IV PRN ×9 (01:45→22:03)
[2020-07-27 06:03] LABS: Basophils # (auto) 0.02 K/uL (0-0.2); Basophils % (auto) 0.2 %; Eosinophils # (auto) 0.06 K/uL (0-0.5); Eosinophils % (auto) 0.6 %; Hematocrit (blood only) 25.9 % (37-47); Hemoglobin 9.2 g/dL (12.0-16.0); Immature Granulocytes # (auto) 0.01 K/uL (0.00-0.02); Immature Granulocytes % (auto) 0.1 %; Lymphocytes # (auto) 2.12 K/uL (1.2-3.4); Lymphocytes % (auto) 22.8 %; Mean Corpuscular Hemoglobin 39.3 pg (25-34); Mean Corpuscular Hgb Conc 35.5 g/dL (32-36); Mean Corpuscular Volume 110.7 fL (80-100); Mean Platelet Volume 9.3 fL (7.4-10.4); Monocytes # (auto) 0.74 K/uL (0.11-0.59); Neutrophils # (auto) 6.35 K/uL (1.4-6.5); Neutrophils % (auto) 68.3 %; Platelet Count 260 K/uL (130-400); RDW Coefficient of Variation 18.7 % (11.5-14.5); RDW Standard Deviation 75.3 fL (36.4-46.3); Red Blood Count 2.34 M/uL (4.2-5.4)
[2020-07-27 06:35] LABS: Macrocytosis Present; Pappenheimer Bodies 1+; Polychromasia 1+; Sickle Cells Occasional; Target Cells 1+
[2020-07-27 06:38] LABS: Alanine Aminotransferase 25 U/L (12-78); Albumin Level 3.4 gm/dl (3.4-5.0); Aspartate Aminotransferase 19 U/L (15-37); BUN Creatinine Ratio 14.3 (10-20); Bilirubin Direct 0.3 mg/dl (0-0.2); Blood Urea Nitrogen 7 mg/dl (7-18); Calcium 8.8 mg/dl (8.5-10.1); Carbon Dioxide 27 mmol/L (21-32); Chloride 112 mmol/L (98-107); Creatinine Clr Calc Pharmacy 179.3 ml/min; Est GFR (African American) > 150.0 ml/min; Est GFR (Non-African American) 137.4 ml/min; Glucose 93 mg/dl (70-99); Potassium 3.9 mmol/L (3.5-5.1); Sodium 141 mmol/L (136-145)
[2020-07-27 06:40] LABS: Alkaline Phosphatase 74 U/L (45-117); Bilirubin,Total 1.4 mg/dl (0.2-1); Total Protein 7.2 gm/dl (6.4-8.2)
[2020-07-27] MEDS: KETOROLAC TROMETHAMINE 15 MG/ML VIAL IV PRN ×2 (06:50→12:50)
[2020-07-27] MEDS: ONDANSETRON INJ 2 MG/ML 2 ML VIAL IV PRN ×2 (08:01→22:19)
[2020-07-27] MEDS: HYDROXYUREA 500 MG CAP PO SCH ×2 (08:02→22:07)
[2020-07-27] MEDS: DICLOFENAC SOD 1% GEL 100 GM TUBE EXT SCH ×4 (08:02→22:19)
[2020-07-27] MEDS: SENNA 8.6 MG TAB PO SCH (09:44)
--- NOTE | 2020-07-27 10:30 | Hospitalist Progress Note ---
Date of Service July 27, 2020 Assessment & Plan (1) Vaso-occlusive sickle cell crisis: 20yo female with SSA presenting with acute pain crisis. Patient is afebrile, HD stable. Mild chest pain. Complaining of diffuse body pain. No neurological compromise. Sickle cell crisis Satting well on room air Continue folic acid, hydroxyurea PO Dilauded discontinued per patient preference Pain control with toradol, morphine Continue zofran prn for nausea Continue incentive spirometry Daily CBC, reticulocyte count Will start lyrica per pain management recommendation; lyrica 50mg bid for now, will increase as tolerated GERD Chronic, well-controlled Continue protonix PO Depression Chronic, well-controlled at this time per patient Continue buspirone, doxepin, duloxetine FEN: regular diet, 1/2NSS at 100mL/hr Code status: full code DVT ppx: ambulation Isolation: none Consults: none Dispo: med/surg (2) Sickle cell anemia: (3) GERD (gastroesophageal reflux disease): (4) Depression: Admission and Anticipated Discharge Date Admission Date: July 26, 2020 Supervising Physician Co-Signing Physician Notes I personally examined the patient and verified all amaro points of history and exam, discussed case, and agree with decision making with Dr German ongoing pain, discussed plans vitals noted nad heent nc at mmm breathing unlabored no accessory muscles good effort skin no rashes no pallor or icterus sickle cell w vasocclusive (and probably complicated multifactorial) pain -sickle vasocclusive pain, also possibly narcotics hyperalgesia, ?other chronic pain physiology -acute management for now - morphine/fluids/time --->work towards sickle clinic as outpt, pain management eval, possibly pain psychology. trial of pregabalin. ---> stable but likely will take time to improve to being able to go home otherwise as above Subjective Patient seen and evaluated at bedside this morning. No acute events overnight. Patient feels well this morning and thinks she is improving. Endorses fatigue today. Denies CP, SOB, abdominal pain, nausea, vomiting, or other symptoms. In good spirits today. Review of Systems Review of Systems: See HPI Physical Exam Physical Exam: Constitutional: well-appearing, no acute distress CV: regular rhythm, no murmur appreciated, extremities well-perfused Resp: CTABL, no wheezes/rales/rhonchi appreciated, no increased work of breathing GI: soft, nondistended, nontender, BS normoactive MSK: no gross deformities appreciated Skin: warm, dry, no rash appreciated Neuro: AOx4, no focal neurological deficits appreciated, speech not slurred, no facial droop Psych: cooperative, pleasant, appropriate rate/volume/quantity of speech Results & Data Results & Data ([facility]) Vital Signs (Past 12 Hours) Vital Signs Temp Pulse Resp BP Pulse Ox 07/27/20 07:37 36.6 C 73 16 111/70 96 07/26/20 23:20 36.7 C 76 16 96/59 L 99 Resident Activity Tracking Resident Involvement: Resident Care Provided Care Provided: Adult Hospital Medicine (1) Sickle cell anemia Sickle-cell associated disorders: with unspecified crisis Qualified Code(s): D57.00 - Hb-SS disease with crisis, unspecified (2) Depression Active/Remission status: currently active Depression Type: major depressive disorder Major depression episode severity: severe Major depression recurrence: recurrent Psychotic features: without psychotic features Qualified Code(s): F33.2 - Major depressive disorder, recurrent severe without psychotic features (3) GERD (gastroesophageal reflux disease) Esophagitis presence: esophagitis presence not specified Qualified Code(s): K21.9 - Gastro-esophageal reflux disease without esophagitis
--- NOTE | 2020-07-27 18:09 | Billing Data ---
Date of Service July 27, 2020 Coding Level of Care Code 50056 Subseq Hosp Care Lvl 3
[2020-07-27] MEDS: busPIRone 15 MG TAB PO SCH (22:06)
[2020-07-27] MEDS: FOLIC ACID 1 MG TAB PO SCH (22:07)
[2020-07-27] MEDS: PANTOprazole 40 MG TAB PO SCH (22:07)
[2020-07-27] MEDS: DULoxetine HCL 60 MG CAP PO SCH (22:07)
[2020-07-27] MEDS: PREGABALIN 50 MG CAP PO SCH (22:18)
[2020-07-28] MEDS: MoRPHine SULFATE 4 MG/ML 1 ML CARP\\VIAL IV PRN ×10 (01:07→22:17)
--- NOTE | 2020-07-28 05:40 | Electrocardiogram Report ---
Test Reason : Blood Pressure : / mmHG Vent. Rate : 077 BPM Atrial Rate : 077 BPM P-R Int : 188 ms QRS Dur : 094 ms QT Int : 400 ms P-R-T Axes : 052 063 045 degrees QTc Int : 452 ms Poor data quality, interpretation may be adversely affected Normal sinus rhythm Nonspecific T wave abnormality When compared with ECG of 27-JUN-2020 15:10, No significant change was found Confirmed by Pierre Marquez ([id number]) on 07/28/2020 5:40:12 AM Referred By: REFERRED SELF Confirmed By:Pierre Marquez
--- NOTE | 2020-07-28 08:20 | Hospitalist Progress Note ---
Date of Service July 28, 2020 Assessment & Plan (1) Vaso-occlusive sickle cell crisis: 20yo female with SSA presenting with acute pain crisis. Patient is afebrile, HD stable. Mild chest pain. Complaining of diffuse body pain. No neurological compromise. Sickle cell crisis Satting well on room air Continue folic acid, hydroxyurea PO Dilauded discontinued per patient preference Pain control with toradol, morphine Continue zofran prn for nausea Continue incentive spirometry Daily CBC, reticulocyte count Continue lyrica - patient tolerated 50mg bid dose, will increase to 100mg bid IVF discontinued GERD Chronic, well-controlled Continue protonix PO Depression Chronic, well-controlled at this time per patient Continue buspirone, doxepin, duloxetine FEN: regular diet Code status: full code DVT ppx: ambulation Isolation: none Consults: none Dispo: med/surg (2) Sickle cell anemia: (3) GERD (gastroesophageal reflux disease): (4) Depression: Admission and Anticipated Discharge Date Admission Date: July 26, 2020 Supervising Physician Co-Signing Physician Notes I personally examined the patient and verified all amaro points of history and exam, discussed case, and agree with decision making with Dr German feeling about the same. vitals noted nad heent nc at mmm breathing unlabored no accessory muscles good effort skin no rashes no pallor or icterus sickle cell w vasocclusive (and probably complicated multifactorial) pain -sickle vasocclusive pain, also possibly narcotics hyperalgesia, ?other chronic pain physiology -acute management for now - morphine/fluids/time - stable --->work towards sickle clinic as outpt, pain management eval, possibly pain psychology. trial of pregabalin - titrate up. ---> stable but likely will take time to improve to being able to go home otherwise as above Subjective Patient seen and evaluated at bedside this morning. No acute events overnight. Patient reports her pain continues to improve. Endorses a sore throat today and requests a throat lozenge. Denies SOB, abdominal pain, nausea, vomiting, or other symptoms. Review of Systems Review of Systems: See HPI Physical Exam Physical Exam: Constitutional: well-appearing, no acute distress CV: regular rhythm, no murmur appreciated, extremities well-perfused Resp: CTABL, no wheezes/rales/rhonchi appreciated, no increased work of breathing GI: soft, nondistended, nontender, BS normoactive MSK: no gross deformities appreciated Skin: warm, dry, no rash appreciated Neuro: AOx4, no focal neurological deficits appreciated, speech not slurred, no facial droop Psych: cooperative, pleasant, appropriate rate/volume/quantity of speech Results & Data Results & Data ([facility]) Vital Signs (Past 12 Hours) Vital Signs Temp Pulse Resp BP Pulse Ox 07/28/20 07:42 37.1 C 73 20 109/71 98 07/28/20 00:08 36.7 C 71 18 97/61 L 97 Resident Activity Tracking Resident Involvement: Resident Care Provided Care Provided: Adult Hospital Medicine (1) Sickle cell anemia Sickle-cell associated disorders: with unspecified crisis Qualified Code(s): D57.00 - Hb-SS disease with crisis, unspecified (2) Depression Active/Remission status: currently active Depression Type: major depressive disorder Major depression episode severity: severe Major depression recurrence: recurrent Psychotic features: without psychotic features Qualified Code(s): F33.2 - Major depressive disorder, recurrent severe without psychotic features (3) GERD (gastroesophageal reflux disease) Esophagitis presence: esophagitis presence not specified Qualified Code(s): K21.9 - Gastro-esophageal reflux disease without esophagitis
[2020-07-28] MEDS: PREGABALIN 50 MG CAP PO SCH (08:41)
[2020-07-28] MEDS: HYDROXYUREA 500 MG CAP PO SCH ×2 (08:41→22:07)
[2020-07-28] MEDS: DICLOFENAC SOD 1% GEL 100 GM TUBE EXT SCH ×4 (08:41→22:07)
[2020-07-28] MEDS: SENNA 8.6 MG TAB PO SCH (08:41)
[2020-07-28] MEDS ORDERED: COUGH DROP (SUGAR FREE) LOZ 24 LOZ/1 BOX BUCCAL STA (08:59)
--- NOTE | 2020-07-28 19:21 | Billing Data ---
Date of Service July 28, 2020 Coding Level of Care Code 32614 Subseq Hosp Care Lvl 3
[2020-07-28] MEDS: ONDANSETRON INJ 2 MG/ML 2 ML VIAL IV PRN (19:57)
[2020-07-28] MEDS: FOLIC ACID 1 MG TAB PO SCH (22:06)
[2020-07-28] MEDS: PREGABALIN 100 MG CAP PO SCH (22:06)
[2020-07-28] MEDS: PANTOprazole 40 MG TAB PO SCH (22:06)
[2020-07-28] MEDS: busPIRone 15 MG TAB PO SCH (22:07)
[2020-07-28] MEDS: DULoxetine HCL 60 MG CAP PO SCH (22:07)
[2020-07-29] MEDS: MoRPHine SULFATE 4 MG/ML 1 ML CARP\\VIAL IV PRN ×9 (01:01→23:20)
[2020-07-29] MEDS: KETOROLAC TROMETHAMINE 15 MG/ML VIAL IV PRN ×2 (02:26→22:18)
[2020-07-29 06:30] LABS: Basophils # (auto) 0.02 K/uL (0-0.2); Basophils % (auto) 0.3 %; Eosinophils % (auto) 1.7 %; Hematocrit (blood only) 25.9 % (37-47); Hemoglobin 9.3 g/dL (12.0-16.0); Immature Granulocytes # (auto) 0.02 K/uL (0.00-0.02); Immature Granulocytes % (auto) 0.3 %; Lymphocytes # (auto) 2.29 K/uL (1.2-3.4); Mean Corpuscular Hemoglobin 39.6 pg (25-34); Mean Corpuscular Hgb Conc 35.9 g/dL (32-36); Mean Corpuscular Volume 110.2 fL (80-100); Mean Platelet Volume 9.1 fL (7.4-10.4); Monocytes # (auto) 0.45 K/uL (0.11-0.59); Monocytes % (auto) 7.5 %; Neutrophils # (auto) 3.14 K/uL (1.4-6.5); Neutrophils % (auto) 52.2 %; Nucleated RBC # (auto) 0.04 K/uL (0-0); Nucleated RBC % (auto) 0.7 %; Platelet Count 262 K/uL (130-400); RDW Standard Deviation 73.2 fL (36.4-46.3); Red Blood Count 2.35 M/uL (4.2-5.4); White Blood Count 6.02 K/uL (4.8-10.8)
[2020-07-29 06:48] LABS: Alanine Aminotransferase 23 U/L (12-78); Albumin Level 3.5 gm/dl (3.4-5.0); Aspartate Aminotransferase 23 U/L (15-37); BUN Creatinine Ratio 14.3 (10-20); Blood Urea Nitrogen 8 mg/dl (7-18); Calcium 8.7 mg/dl (8.5-10.1); Carbon Dioxide 28 mmol/L (21-32); Chloride 105 mmol/L (98-107); Est GFR (African American) > 150.0 ml/min; Est GFR (Non-African American) 133.1 ml/min; Glucose 89 mg/dl (70-99); Potassium 3.8 mmol/L (3.5-5.1); Sodium 139 mmol/L (136-145)
[2020-07-29 06:51] LABS: Albumin Globulin Ratio 0.9 (0.9-2); Alkaline Phosphatase 72 U/L (45-117); Bilirubin,Total 1.5 mg/dl (0.2-1); Globulin 4.1 gm/dl (2.5-4.0); Total Protein 7.6 gm/dl (6.4-8.2)
[2020-07-29 07:08] LABS: Macrocytosis Present; Polychromasia 1+
[2020-07-29] MEDS: ONDANSETRON INJ 2 MG/ML 2 ML VIAL IV PRN (07:59)
[2020-07-29] MEDS: SENNA 8.6 MG TAB PO SCH (08:23)
[2020-07-29] MEDS: PREGABALIN 100 MG CAP PO SCH (08:23)
[2020-07-29] MEDS: HYDROXYUREA 500 MG CAP PO SCH ×2 (08:23→22:15)
[2020-07-29] MEDS: DICLOFENAC SOD 1% GEL 100 GM TUBE EXT SCH ×4 (08:24→22:18)
--- NOTE | 2020-07-29 18:31 | Hospitalist Progress Note ---
Date of Service July 29, 2020 Assessment & Plan (1) Vaso-occlusive sickle cell crisis: Fluids, pain control, time. Seems to be slowly improving (2) Sickle cell anemia: Continue folic acid and hydroxyurea. Outpatient follow-up with hematologyit seems likely she will follow closer now. Also her PCP is trying to help arrange follow-up with a sickle cell center. (3) GERD (gastroesophageal reflux disease): Chronic. Well controlled -Continue Protonix 40mg po qHS (4) Depression: Continue duloxetine, doxepin, BuSpar. Would likely benefit from chronic pain counseling/psychology (5) Chronic pain: We have had discussions, and she is well aware that not all of her pain is likely directly related to her sickle cell vaso-occlusion at this pointwe both agree that it is likely that there is a degree of neuropathic pain just due to the acuity/chronicity of her pain, as well as possibly a degree of narcotics-induced hyperalgesia. However, this very difficult situation, given that her sickle cell also and of itself does cause rather tremendous pain. She would like to minimize narcotics on a chronic basis when she can, but has noted that of course with the severity of her pain is very difficult. We will have her follow-up with pain management as an outpatient, a multimodal approach with the sickle cell center and psychology could also be helpful, and we have been titrating Lyrica upshe notes feeling a little groggy today but would prefer to continue the up titrationwe will increase to 150 twice daily today. Could potentially raise her duloxetine to more pain modulating doses in the future as well. Admission and Anticipated Discharge Date Admission Date: July 26, 2020 Subjective Pain down to about a 6 or 7. Was able to walk to the bathroom with less pain as well. Slowly feeling better as far as pain control, notes that she does feel a little bit groggy with the Lyrica today, but not really confused just more sleepy. Review of Systems Review of Systems: All systems reviewed & are unremarkable except as noted in HPI & below Physical Exam Physical Exam: In general she is awake and alert pleasant no distress. HEENT normocephalic atraumatic mucous membranes moist. Breathing unlabored no accessory muscle use good effort. Skin shows no rashes no pallor or icterus. Neuro without focal deficits. Results & Data Results & Data ([facility]) Vital Signs (Past 12 Hours) Vital Signs Temp Pulse Resp BP Pulse Ox 07/29/20 16:00 98.2 F 82 16 118/75 95 07/29/20 07:40 98.2 F 71 16 112/75 98 PG Care Time/CCT Total # of Minutes Spent Total Time Spent with Patient: Total time spent is greater than 50% in coordination of care (as documented) at patient's floor/unit and/or counseling patient: Coding Level of Care Code 25235 Subseq Hosp Care Lvl 2 Diagnoses Vaso-occlusive sickle cell crisis D57.00 Sickle cell anemia D57.00 Sickle-cell associated disorders: with unspecified crisis GERD (gastroesophageal reflux disease) K21.9 Esophagitis presence: esophagitis presence not specified Depression F33.2 Active/Remission status: currently active Depression Type: major depressive disorder Major depression episode severity: severe Major depression recurrence: recurrent Psychotic features: without psychotic features Chronic pain G89.29 (1) Sickle cell anemia Sickle-cell associated disorders: with unspecified crisis Qualified Code(s): D57.00 - Hb-SS disease with crisis, unspecified (2) GERD (gastroesophageal reflux disease) Esophagitis presence: esophagitis presence not specified Qualified Code(s): K21.9 - Gastro-esophageal reflux disease without esophagitis (3) Depression Active/Remission status: currently active Depression Type: major depressive disorder Major depression episode severity: severe Major depression recurrence: recurrent Psychotic features: without psychotic features Qualified Code(s): F33.2 - Major depressive disorder, recurrent severe without psychotic features
[2020-07-29] MEDS: busPIRone 15 MG TAB PO SCH (22:16)
[2020-07-29] MEDS: PANTOprazole 40 MG TAB PO SCH (22:16)
[2020-07-29] MEDS: FOLIC ACID 1 MG TAB PO SCH (22:16)
[2020-07-29] MEDS: PREGABALIN 150 MG CAP PO SCH (22:17)
[2020-07-29] MEDS: DULoxetine HCL 60 MG CAP PO SCH (22:18)
[2020-07-30] MEDS: MoRPHine SULFATE 4 MG/ML 1 ML CARP\\VIAL IV PRN ×8 (02:08→23:55)
[2020-07-30] MEDS: HYDROXYUREA 500 MG CAP PO SCH ×2 (08:57→21:42)
[2020-07-30] MEDS: DICLOFENAC SOD 1% GEL 100 GM TUBE EXT SCH ×4 (08:58→21:53)
[2020-07-30] MEDS: POLYETHYLENE (MIRALAX) 17 GM PACK PO PRN (08:58)
[2020-07-30] MEDS: SENNA 8.6 MG TAB PO SCH (08:58)
[2020-07-30] MEDS: PREGABALIN 150 MG CAP PO SCH ×2 (08:58→21:45)
[2020-07-30] MEDS: KETOROLAC TROMETHAMINE 15 MG/ML VIAL IV PRN ×2 (10:15→18:27)
--- NOTE | 2020-07-30 20:33 | Hospitalist Progress Note ---
Date of Service July 30, 2020 Assessment & Plan (1) Vaso-occlusive sickle cell crisis: Fluids, pain control, time. is showing improvement - hopefully home soon. (2) Sickle cell anemia: Continue folic acid and hydroxyurea. Outpatient follow-up with hematologyit seems likely she will follow closer now. Also her PCP is trying to help arrange follow-up with a sickle cell center - have been in touch w PCP during this stay. (3) GERD (gastroesophageal reflux disease): Chronic. no complaints of this -Continue Protonix 40mg po qHS (4) Depression: Continue duloxetine, doxepin, BuSpar. Would likely benefit from outpatient chronic pain counseling/psychology (5) Chronic pain: We have had discussions, and she is well aware that not all of her pain is likely directly related to her sickle cell vaso-occlusion at this pointwe both agree that it is likely that there is a degree of neuropathic pain just due to the acuity/chronicity of her pain, as well as possibly a degree of narcotics- induced hyperalgesia. However, this very difficult situation, given that her sickle cell also and of itself does cause rather tremendous pain. She would like to minimize narcotics on a chronic basis when she can, but has noted that of course with the severity of her pain is very difficult. We will have her follow-up with pain management as an outpatient, a multimodal approach with the sickle cell center and psychology could also be helpful, and we have been titrating Lyrica upsdoug notes feeling a little groggy but would prefer to continue this working off of the assumption that her body will adapt, and the grogginess will likely lessen. We also discussed that while she does seem to have a little bit of improved pain control right now, the pain control often comes on more of a delay as her body reaches more of a steady state with medication. Could also potentially raise her duloxetine to more pain modulating doses in the future as well. Admission and Anticipated Discharge Date Admission Date: July 26, 2020 Subjective Continues to feel better. Pain overall doing better, still a good bit of pain, and pain worse with walking, but is able to get around more. Does feel a bit more groggy with the Lyrica, but is not confused just more sleepy, and would prefer to stick with this given the hope of some improvement in her chronic pain. Review of Systems Review of Systems: All systems reviewed & are unremarkable except as noted in HPI & below Physical Exam Physical Exam: General she is awake and alert pleasant no distress. HEENT normocephalic atraumatic mucous membranes moist. Breathing unlabored no accessory muscle use good effort. Skin shows no rashes no pallor or icterus. Neuro without focal deficits. Results & Data Results & Data ([facility]) Vital Signs (Past 12 Hours) Vital Signs Temp Pulse Resp BP Pulse Ox 07/30/20 16:05 97.7 F 86 16 100/61 97 PG Care Time/CCT Total # of Minutes Spent Total Time Spent with Patient: Total time spent is greater than 50% in coordination of care (as documented) at patient's floor/unit and/or counseling patient: Coding Level of Care Code 34816 Subseq Hosp Care Lvl 2 Diagnoses Vaso-occlusive sickle cell crisis D57.00 Sickle cell anemia D57.00 Sickle-cell associated disorders: with unspecified crisis GERD (gastroesophageal reflux disease) K21.9 Esophagitis presence: esophagitis presence not specified Depression F33.2 Active/Remission status: currently active Depression Type: major depressive disorder Major depression episode severity: severe Major depression recurrence: recurrent Psychotic features: without psychotic features Chronic pain G89.29 (1) Sickle cell anemia Sickle-cell associated disorders: with unspecified crisis Qualified Code(s): D57.00 - Hb-SS disease with crisis, unspecified (2) GERD (gastroesophageal reflux disease) Esophagitis presence: esophagitis presence not specified Qualified Code(s): K21.9 - Gastro-esophageal reflux disease without esophagitis (3) Depression Active/Remission status: currently active Depression Type: major depressive disorder Major depression episode severity: severe Major depression recurrence: recurrent Psychotic features: without psychotic features Qualified Code(s): F33.2 - Major depressive disorder, recurrent severe without psychotic features
[2020-07-30] MEDS: DULoxetine HCL 60 MG CAP PO SCH (21:41)
[2020-07-30] MEDS: busPIRone 15 MG TAB PO SCH (21:41)
[2020-07-30] MEDS: PANTOprazole 40 MG TAB PO SCH (21:42)
[2020-07-30] MEDS: FOLIC ACID 1 MG TAB PO SCH (21:42)
[2020-07-31] MEDS: MoRPHine SULFATE 4 MG/ML 1 ML CARP\\VIAL IV PRN ×9 (02:10→23:03)
[2020-07-31] MEDS: HYDROXYUREA 500 MG CAP PO SCH ×2 (08:07→19:44)
[2020-07-31] MEDS: SENNA 8.6 MG TAB PO SCH (08:07)
[2020-07-31] MEDS: PREGABALIN 150 MG CAP PO SCH ×2 (08:07→19:43)
[2020-07-31] MEDS: DICLOFENAC SOD 1% GEL 100 GM TUBE EXT SCH ×4 (08:10→19:45)
[2020-07-31 09:05] LABS: Hematocrit (blood only) 24.3 % (37-47); Hemoglobin 8.7 g/dL (12.0-16.0); Mean Corpuscular Hemoglobin 40.3 pg (25-34); Mean Corpuscular Hgb Conc 35.8 g/dL (32-36); Mean Corpuscular Volume 112.5 fL (80-100); Mean Platelet Volume 8.9 fL (7.4-10.4); Nucleated RBC # (auto) 0.12 K/uL (0-0); Nucleated RBC % (auto) 1.9 %; Platelet Count 286 K/uL (130-400); RDW Coefficient of Variation 17.9 % (11.5-14.5); RDW Standard Deviation 73.1 fL (36.4-46.3); Red Blood Count 2.16 M/uL (4.2-5.4); White Blood Count 6.49 K/uL (4.8-10.8)
[2020-07-31 09:21] LABS: BUN Creatinine Ratio 20.6 (10-20); Blood Urea Nitrogen 10 mg/dl (7-18); Calcium 8.8 mg/dl (8.5-10.1); Carbon Dioxide 28 mmol/L (21-32); Chloride 105 mmol/L (98-107); Creatinine Clr Calc Pharmacy 190.7 ml/min; Est GFR (African American) > 150.0 ml/min; Est GFR (Non-African American) 140.2 ml/min; Glucose 86 mg/dl (70-99); Sodium 139 mmol/L (136-145)
[2020-07-31] MEDS: ONDANSETRON INJ 2 MG/ML 2 ML VIAL IV PRN (09:23)
[2020-07-31] MEDS ORDERED: oxyCODONE/ACETAMINOPHEN 5mg/325mg TAB PO PRN (09:43)
[2020-07-31] MEDS ORDERED: bisacodyL 5 MG TABEC PO ONE (09:46)
[2020-07-31] MEDS ORDERED: bisacodyL 5 MG TABEC PO PRN (09:46)
--- NOTE | 2020-07-31 09:49 | Hospitalist Progress Note ---
Date of Service July 31, 2020 Assessment & Plan (1) Vaso-occlusive sickle cell crisis: Supportive care, IVF ordered for some dehydration/elevated Tbili -- improving on AM labs Baseline hgb 9-10 Currently 8.7 (was discharged last month at 8.4) Pain control -- had been getting only IV Morphine around the clock --Ordered Percocet, tramadol prn to hopefully wean off IV pain control Voltaren gel for chest discomfort -- controlled per patient and would continue Hopefully home in next 1-2 days (2) Sickle cell anemia: Continue folic acid and hydroxyurea. Outpatient follow-up with hematologyit seems likely she will follow closer now. Also her PCP is trying to help arrange follow-up with a sickle cell center - have been in touch w PCP during this stay. (3) GERD (gastroesophageal reflux disease): Chronic. no complaints of this -Continue Protonix 40mg po qHS (4) Depression: Continue duloxetine, doxepin, BuSpar. Would likely benefit from outpatient chronic pain counseling/psychology (5) Chronic pain: We have had discussions, and she is well aware that not all of her pain is likely directly related to her sickle cell vaso-occlusion at this pointwe both agree that it is likely that there is a degree of neuropathic pain just due to the acuity/chronicity of her pain, as well as possibly a degree of narcotics- induced hyperalgesia. However, this very difficult situation, given that her sickle cell also and of itself does cause rather tremendous pain. She would like to minimize narcotics on a chronic basis when she can, but has noted that of course with the severity of her pain is very difficult. We will have her follow-up with pain management as an outpatient, a multimodal approach with the sickle cell center and psychology could also be helpful, and we have been titrating Lyrica herman notes feeling a little groggy but would prefer to continue this working off of the assumption that her body will adapt, and the grogginess will likely lessen. We also discussed that while she does seem to have a little bit of improved pain control right now, the pain control often comes on more of a delay as her body reaches more of a steady state with medication. Could also potentially raise her duloxetine to more pain modulating doses in the future as well. (6) Elevated LFTs: ELevated Tbili in the past, likely component of dehydration. AST 45 Prior + Lyme, negative anaplasmosis, CMV indicative of prior infection. Parvovirus negative. Do not see any hx of mono/etc -- will check with patient Tbili 1.5 on 07/29, provided IVF but none ordered for yesterday into today -- see above Improving but will trend on AM labs Admission and Anticipated Discharge Date Admission Date: July 26, 2020 Supervising Physician Co-Signing Physician Notes PA Supervision Note: I did not personally see or examine the patient today, but I verified all amaro points of ROLA Alonso's assessment and plan with the following exceptions/additions: None Subjective Patient evaluated this morning Pain 8/10. Typically 5-6/10 at home but that still isn't very tolerable. Pain all over -- to chest (controlled with Voltaren), abdomen, backs of legs, all over without discrete focalization. She states tramadol with the percocet was effective last admission and we will try this to avoid further IV medications. She states she has been following with her PCP (Dr Bailey and partners) for management of her pain and just saw Dr. Dietrich last week prior to admission and had been doing well. No discussion about decreasing her hydroxyurea per ID possible recs last admission. No fever, chills, nausea/vomiting reported. Review of Systems Review of Systems: All systems reviewed & are unremarkable except as noted in HPI & below Physical Exam Physical Exam: General she is awake and alert pleasant no distress. Resting in bed on laptop Moist mm Resp: CTAB, no w/c/r Cardiac: RRR, no murmur, no edema Abd: soft, non-tender, +BS throughout Ext: warm, moist Neuro: No focal deficits Psych: AOX3 Results & Data Results & Data ([facility]) Vital Signs (Past 12 Hours) Vital Signs Temp Pulse Resp BP Pulse Ox 07/31/20 07:28 36.6 C 85 16 118/76 93 07/30/20 22:21 36.7 C 86 16 116/76 93 Laboratory Results 07/31/20 07/31/20 07/31/20 Range/Units 08:54 08:54 08:54 WBC 6.49 (4.8-10.8) K/uL RBC 2.16 L (4.2-5.4) M/uL Hgb 8.7 L (12.0-16.0) g/dL Hct 24.3 L (37-47) % MCV 112.5 H (80-100) fL MCH 40.3 H (25-34) pg MCHC 35.8 (32-36) g/dL RDW Std Deviation 73.1 H (36.4-46.3) fL RDW Coeff of Nando 17.9 H (11.5-14.5) % Plt Count 286 (130-400) K/uL MPV 8.9 (7.4-10.4) fL Absolute Nucleated RBC 0.12 H (0-0) K/uL Nucleated RBC % (auto) 1.9 % Sodium 139 (136-145) mmol/L Potassium 4.0 (3.5-5.1) mmol/L Chloride 105 (98-107) mmol/L Carbon Dioxide 28 (21-32) mmol/L Anion Gap 6.0 (3-11) BUN 10 (7-18) mg/dl Creatinine 0.47 L (0.6-1.2) mg/dl Est Cr Clr Drug Dosing 190.7 ml/min Est GFR ( Amer) > 150.0 ml/min Est GFR (Non-Af Amer) 140.2 ml/min BUN/Creatinine Ratio 20.6 H (10-20) Glucose 86 (70-99) mg/dl Calcium 8.8 (8.5-10.1) mg/dl Total Bilirubin Pending Direct Bilirubin Pending AST Pending ALT Pending Alkaline Phosphatase Pending Total Protein Pending Albumin Pending PG Care Time/CCT Total # of Minutes Spent Total Time Spent with Patient: Total time spent is greater than 50% in coordination of care (as documented) at patient's floor/unit and/or counseling patient: Coding Level of Care Code 75575 Subseq Hosp Care Lvl 2 Diagnoses Vaso-occlusive sickle cell crisis D57.00 Sickle cell anemia D57.00 Sickle-cell associated disorders: with unspecified crisis GERD (gastroesophageal reflux disease) K21.9 Esophagitis presence: esophagitis presence not specified Depression F33.2 Active/Remission status: currently active Depression Type: major depressive disorder Major depression episode severity: severe Major depression recurrence: recurrent Psychotic features: without psychotic features Chronic pain G89.29 Elevated LFTs R79.89 (1) Sickle cell anemia Sickle-cell associated disorders: with unspecified crisis Qualified Code(s): D57.00 - Hb-SS disease with crisis, unspecified (2) Depression Active/Remission status: currently active Depression Type: major depressive disorder Major depression episode severity: severe Major depression recurrence: recurrent Psychotic features: without psychotic features Qualified Code(s): F33.2 - Major depressive disorder, recurrent severe without psychotic features (3) GERD (gastroesophageal reflux disease) Esophagitis presence: esophagitis presence not specified Qualified Code(s): K21.9 - Gastro-esophageal reflux disease without esophagitis
[2020-07-31 10:05] LABS: Albumin Level 3.2 gm/dl (3.4-5.0); Bilirubin Direct 0.3 mg/dl (0-0.2); Bilirubin,Total 1.2 mg/dl (0.2-1); Total Protein 6.9 gm/dl (6.4-8.2)
--- NOTE | 2020-07-31 10:51 | Emergency Department Note ---
Impression & Plan Sickle cell anemia, Chest pain ED Provider Note NAME: ADÁN PEOPLES AGE: 20 SEX: F : 2000 ARRIVES VIA: Walk-In INFORMANT: Patient, ED PROVIDER(S): Daniel Bautista MD CHIEF COMPLAINT: Sickle cell crisis HPI: This 20-year-old female who has a history of sickle cell crisis who presents emergency department complaining of diffuse pain all over her body. Patient reports she is has pain in her chest abdomen as well as her extremities. Patient has a previous history of sickle cell crisis. Patient reports she has been taking oxycodone for the pain without relief of the pain. Patient describes the pain as an aching sensation with radiation everywhere. ROS: See above HPI for pertinent positives & negatives. A total of 10 systems reviewed and were otherwise negative. PAST MEDICAL HISTORY: See Below PAST SURGICAL HISTORY: See Below FAMILY HISTORY: See Below SOCIAL HISTORY: See Below HOME MEDICATIONS: See Below ALLERGIES: See Below VITALS: See Below PHYSICAL EXAMINATION: VITAL SIGNS - Vital signs and nursing notes were reviewed. GENERAL - 20-year-old female appearing stated age who is in no acute distress. Communicates well with provider and answers questions appropriately. SKIN - Without rashes. HEAD - NC/AT. EYES - PERRL with EOMI bilaterally. Sclera anicteric. Palpebral conjunctiva pink and moist with no injection noted. EARS - No deformities of external structures noted on gross examination bilaterally. NOSE - Midline and without cyanosis. No epistaxis or purulent drainage noted. Septum midline without deviation or septal hematoma noted. MOUTH/OROPHARYNX - Without perioral cyanosis. Buccal mucosa pink and moist and without leukoplakia. Tongue midline with equal elevation of palate bilaterally. No tonsillar hypertrophy, erythema, or exudates noted. NECK - Neck with FROM. Supple to palpation. No nuchal rigidity. LUNGS - Chest wall symmetric without accessory muscle use, intercostals retractions, or central cyanosis. Normal vesicular breath sounds CTA B/L. No wheezes, rales, or rhonchi appreciated. CARDIAC - RRR with S1/S2. No murmur, rubs, or gallops appreciated. ABDOMEN - Abdominal contour without pulsations or visible masses. BS normoactive all four quadrants. No tenderness, palpable masses, hepatosplenomegaly, or ascites noted. EXTREMITIES - No clubbing or peripheral cyanosis. No pretibial edema present. +3/5 radial, posterior tibial, and dorsalis pedis pulses palpated throughout. +5/5 strength noted in UE/LE bilaterally. NEUROLOGIC - Cranial nerves II through XII grossly intact. Sensory intact to light touch throughout. Patellar reflexes +2/4. PSYCH - A&Ox3 and cooperates fully with examiner. Pt is very pleasant and interacts well with examiner. MEDICAL DECISION MAKING: Patient was seen and evaluated as above in room A3. Review was performed of nursing notes and vital signs. I did review pertinent previous visits and patient history. After obtaining a thorough history and physical examination the above work up was performed. This a 20-year-old female who presents to the emergency department. Patient does have sickle cells in her differential although her hemoglobin level appears to be stable. She was given Dilaudid for her pain as well as a normal saline bolus. I did discuss her case with the hospitalist service who did agree to meet the patient. Patient is in agreement with treatment plan. An order was placed for continuous cardiac monitoring. The monitor shows a rate of 85 with Normal Sinus rhythm. The patient was evaluated during a period of high volume and high acuity during the global COVID-19 pandemic, and that diagnosis was suspected/considered upon their initial presentation. Their evaluation, treatment and testing was consistent with current guidelines for patients who present with complaints or symptoms that may be related to COVID-19. Patient was seen while provider was wearing PPE. Triage Nursing notes reviewed. Prior medical records reviewed Vital Signs: reviewed and remarkable for no significant abnormalities Differential diagnosis: Cardiac ischemia, aortic dissection, pulmonary embolism, pneumothorax, pneumonia, pericarditis, myocarditis, esophageal rupture, GERD, cholecystitis, pancreatitis, musculoskeletal, as well as other pathologies. ER treatment provided: See below Diagnostics interpreted by me: ECG: EKG shows a normal sinus rhythm no ST elevation or depression QTC is 452 ventricular rate of 77 EKG is compared to 06/27/2020 no significant change was found. Laboratory studies: As stated above and show below. Imaging studies: See below Consultation(s): Internal Medicine Past Med/Surg History Medical History (Updated 07/31/20 @ 10:51 by Daniel Bautista MD) Borderline personality disorder Depression Murmur, cardiac Nausea Pneumonia Pseudoseizures Seizure-like activity Sickle cell anemia Sickle cell crisis Suicide gesture Surgical History No pertinent past surgical history Family History Mother Hypertension Father Ulcer Other Family history non-contributory Social History Smoking Status: Never smoker Tobacco Type: E-cigarettes / Vaping Second Hand Exposure: Yes; Hx Alcohol Use: Yes Alcohol type: hard liquor Hx Substance Use: No Preferred Language: Faroese Communication Ability: Effective Medical Consultant Required: No Beliefs That Will Affect Care: None marital status: Single Current Living Situation: Other Current Living Situation Comment: apartment with roommates 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 current occupation: [email or web address] major Feels Safe at Home: Yes Assistive Devices: None Allergies Allergies Allergy/AdvReac Type Severity Reaction Status Date / Time No Known Allergies Allergy Verified 07/26/20 00:08 Home Meds Home Medications Medication Instructions Recorded Confirmed folic acid 2 mg PO HS 11/18/19 07/26/20 buspirone 45 mg PO HS 01/22/20 07/26/20 pantoprazole 40 mg PO HS 01/22/20 07/26/20 duloxetine 60 mg PO HS 04/17/20 07/26/20 oxycodone-acetaminophen 1 tab PO TID PRN 05/07/20 07/26/20 diclofenac sodium [Voltaren] 4 g TOPICAL QID 07/26/20 07/26/20 Previous Rx's Medication Instructions Recorded hydroxyurea 1,000 mg PO BID 30 Days #120 cap 05/01/20 doxepin 25 mg PO HS PRN #10 cap 07/06/20 polyethylene glycol 3350 [Miralax] 17 g PO BID #100 ea 07/06/20 sennosides [Senokot] 17.2 mg PO QAM #60 tab 07/06/20 Results & Data (ED) Home Medications Current Medication List: was personally reviewed by me Laboratory Data Attestation: I reviewed the patient's lab results. Result diagrams: 07/31/20 08:54 07/31/20 08:54 Lab Results 07/26/20 07/26/20 07/26/20 Range/Units 00:43 00:43 00:43 WBC 8.26 (4.8-10.8) K/uL RBC 2.47 L (4.2-5.4) M/uL Hgb 9.8 L (12.0-16.0) g/dL Hct 27.5 L (37-47) % MCV 111.3 H (80-100) fL MCH 39.7 H (25-34) pg MCHC 35.6 (32-36) g/dL RDW Std Deviation 77.7 H (36.4-46.3) fL RDW Coeff of Nando 18.9 H (11.5-14.5) % Plt Count 256 (130-400) K/uL MPV 9.3 (7.4-10.4) fL Immature Gran % (Auto) 0.2 % Neut % (Auto) 48.2 % Lymph % (Auto) 41.8 % Sevier % (Auto) 8.1 % Eos % (Auto) 1.2 % Baso % (Auto) 0.5 % Reticulocyte % (Auto) 6.7 H (0.5-2.0) % Neut # (Auto) 3.98 (1.4-6.5) K/uL Lymph # (Auto) 3.45 H (1.2-3.4) K/uL Sevier # (Auto) 0.67 H (0.11-0.59) K/uL Eos # (Auto) 0.10 (0-0.5) K/uL Baso # (Auto) 0.04 (0-0.2) K/uL Reticulocyte # 0.17 H (0.02-0.10) 10^6/uL Immature Gran # (Auto) 0.02 (0.00-0.02) K/uL Absolute Nucleated RBC 0.03 H (0-0) K/uL Nucleated RBC % (auto) 0.3 % Polychromasia 1+ Macrocytosis Present Pappenheimer Bodies 1+ Sickle Cells Occasional Target Cells 1+ [place] Bodies Occasional PT 10.5 (9.0-12.0) Seconds INR 1.0 (0.9-1.1) APTT 21.3 (21.0-31.0) Seconds PTT Ratio 0.8 Sodium (136-145) mmol/L Potassium (3.5-5.1) mmol/L Chloride (98-107) mmol/L Carbon Dioxide (21-32) mmol/L Anion Gap (3-11) BUN (7-18) mg/dl Creatinine (0.6-1.2) mg/dl Est Cr Clr Drug Dosing ml/min Est GFR ( Amer) ml/min Est GFR (Non-Af Amer) ml/min BUN/Creatinine Ratio (10-20) Glucose (70-99) mg/dl Calcium (8.5-10.1) mg/dl Total Bilirubin (0.2-1) mg/dl AST (15-37) U/L ALT (12-78) U/L Alkaline Phosphatase (45-117) U/L Total Protein (6.4-8.2) gm/dl Albumin (3.4-5.0) gm/dl Globulin (2.5-4.0) gm/dl Albumin/Globulin Ratio (0.9-2) HCG, Qual (Negative) COVID-19 Eval Order SARS-CoV-2 (PCR) (Negative) Blood Type B Positive Antibody Screen NEGATIVE 07/26/20 07/26/20 07/26/20 Range/Units 00:43 00:44 01:35 WBC (4.8-10.8) K/uL RBC (4.2-5.4) M/uL Hgb (12.0-16.0) g/dL Hct (37-47) % MCV (80-100) fL MCH (25-34) pg MCHC (32-36) g/dL RDW Std Deviation (36.4-46.3) fL RDW Coeff of Nando (11.5-14.5) % Plt Count (130-400) K/uL MPV (7.4-10.4) fL Immature Gran % (Auto) % Neut % (Auto) % Lymph % (Auto) % [place]vier % (Auto) % Eos % (Auto) % Baso % (Auto) % Reticulocyte % (Auto) (0.5-2.0) % Neut # (Auto) (1.4-6.5) K/uL Lymph # (Auto) (1.2-3.4) K/uL Sevier # (Auto) (0.11-0.59) K/uL Eos # (Auto) (0-0.5) K/uL Baso # (Auto) (0-0.2) K/uL Reticulocyte # (0.02-0.10) 10^6/uL Immature Gran # (Auto) (0.00-0.02) K/uL Absolute Nucleated RBC (0-0) K/uL Nucleated RBC % (auto) % Polychromasia Macrocytosis Pappenheimer Bodies Sickle Cells Target Cells [place] Bodies PT (9.0-12.0) Seconds INR (0.9-1.1) APTT (21.0-31.0) Seconds PTT Ratio Sodium 143 (136-145) mmol/L Potassium 3.8 (3.5-5.1) mmol/L Chloride 112 H (98-107) mmol/L Carbon Dioxide 25 (21-32) mmol/L Anion Gap 6.0 (3-11) BUN 11 (7-18) mg/dl Creatinine 0.47 L (0.6-1.2) mg/dl Est Cr Clr Drug Dosing 175.8 ml/min Est GFR ( Amer) > 150.0 ml/min Est GFR (Non-Af Amer) 140.2 ml/min BUN/Creatinine Ratio 23.1 H (10-20) Glucose 101 H (70-99) mg/dl Calcium 8.3 L (8.5-10.1) mg/dl Total Bilirubin 1.3 H (0.2-1) mg/dl AST 24 (15-37) U/L ALT 27 (12-78) U/L Alkaline Phosphatase 80 (45-117) U/L Total Protein 8.1 (6.4-8.2) gm/dl Albumin 3.9 (3.4-5.0) gm/dl Globulin 4.2 H (2.5-4.0) gm/dl Albumin/Globulin Ratio 0.9 (0.9-2) HCG, Qual Negative (Negative) COVID-19 Eval Order Covid19 at [facility] SARS-CoV-2 (PCR) (Negative) Blood Type Antibody Screen 07/26/20 Range/Units 01:35 WBC (4.8-10.8) K/uL RBC (4.2-5.4) M/uL Hgb (12.0-16.0) g/dL Hct (37-47) % MCV (80-100) fL MCH (25-34) pg MCHC (32-36) g/dL RDW Std Deviation (36.4-46.3) fL RDW Coeff of Nando (11.5-14.5) % Plt Count (130-400) K/uL MPV (7.4-10.4) fL Immature Gran % (Auto) % Neut % (Auto) % Lymph % (Auto) % [place] % (Auto) % Eos % (Auto) % Baso % (Auto) % Reticulocyte % (Auto) (0.5-2.0) % Neut # (Auto) (1.4-6.5) K/uL Lymph # (Auto) (1.2-3.4) K/uL [place]vier # (Auto) (0.11-0.59) K/uL Eos # (Auto) (0-0.5) K/uL Baso # (Auto) (0-0.2) K/uL Reticulocyte # (0.02-0.10) 10^6/uL Immature Gran # (Auto) (0.00-0.02) K/uL Absolute Nucleated RBC (0-0) K/uL Nucleated RBC % (auto) % Polychromasia Macrocytosis Pappenheimer Bodies Sickle Cells Target Cells [place] Bodies PT (9.0-12.0) Seconds INR (0.9-1.1) APTT (21.0-31.0) Seconds PTT Ratio Sodium (136-145) mmol/L Potassium (3.5-5.1) mmol/L Chloride (98-107) mmol/L Carbon Dioxide (21-32) mmol/L Anion Gap (3-11) BUN (7-18) mg/dl Creatinine (0.6-1.2) mg/dl Est Cr Clr Drug Dosing ml/min Est GFR ( Amer) ml/min Est GFR (Non-Af Amer) ml/min BUN/Creatinine Ratio (10-20) Glucose (70-99) mg/dl Calcium (8.5-10.1) mg/dl Total Bilirubin (0.2-1) mg/dl AST (15-37) U/L ALT (12-78) U/L Alkaline Phosphatase (45-117) U/L Total Protein (6.4-8.2) gm/dl Albumin (3.4-5.0) gm/dl Globulin (2.5-4.0) gm/dl Albumin/Globulin Ratio (0.9-2) HCG, Qual (Negative) COVID-19 Eval Order SARS-CoV-2 (PCR) NEGATIVE (Negative) Blood Type Antibody Screen Administered Medications Buspirone HCl (Buspirone 15 Mg Tab) 45 mg PO HS [facility] Stop: 08/25/20 20:59 Last Admin: 07/30/20 21:41 Dose: 45 mg Documented by: [id number] Admin: 07/29/20 22:16 Dose: 45 mg Documented by: [id number] Admin: 07/28/20 22:07 Dose: 45 mg Documented by: [id number] Admin: 07/27/20 22:06 Dose: 45 mg Documented by: [id number] Admin: 07/26/20 20:48 Dose: 45 mg Documented by: [id number] Diclofenac Sodium (Diclofenac Sod 1% Gel 100 Gm Tube) 4 gm EXT QID [facility] Stop: 08/25/20 08:59 Last Admin: 07/31/20 08:10 Dose: 4 gm Documented by: [id number] Admin: 07/30/20 21:53 Dose: Not Given Documented by: [id number] Admin: 07/30/20 17:47 Dose: Not Given Documented by: [id number] Admin: 07/30/20 14:13 Dose: 4 gm Documented by: [id number] Admin: 07/30/20 08:58 Dose: 4 gm Documented by: [id number] Admin: 07/29/20 22:18 Dose: Not Given Documented by: [id number] Admin: 07/29/20 18:18 Dose: Not Given Documented by: [id number] Admin: 07/29/20 16:00 Dose: 4 gm Documented by: [id number] Admin: 07/29/20 08:24 Dose: 4 gm Documented by: [id number] Admin: 07/28/20 22:07 Dose: 4 gm Documented by: [id number] Admin: 07/28/20 17:43 Dose: 4 gm Documented by: [id number] Admin: 07/28/20 13:39 Dose: 4 gm Documented by: [id number] Admin: 07/28/20 08:41 Dose: 4 gm Documented by: [id number] Admin: 07/27/20 22:19 Dose: Not Given Documented by: [id number] Admin: 07/27/20 18:00 Dose: 4 gm Documented by: [id number] Admin: 07/27/20 12:50 Dose: 4 gm Documented by: [id number] Admin: 07/27/20 08:02 Dose: 4 gm Documented by: [id number] Admin: 07/26/20 20:48 Dose: 4 gm Documented by: [id number] Admin: 07/26/20 16:14 Dose: 4 gm Documented by: [id number] Admin: 07/26/20 12:43 Dose: 4 gm Documented by: [id number] Admin: 07/26/20 08:46 Dose: 4 gm Documented by: [id number] Duloxetine HCl (Duloxetine Hcl 60 Mg Cap) 60 mg PO HS [facility] Stop: 08/25/20 20:59 Last Admin: 07/30/20 21:41 Dose: 60 mg Documented by: [id number] Admin: 07/29/20 22:18 Dose: 60 mg Documented by: [id number] Admin: 07/28/20 22:07 Dose: 60 mg Documented by: [id number] Admin: 07/27/20 22:07 Dose: 60 mg Documented by: [id number] Admin: 07/26/20 20:49 Dose: 60 mg Documented by: [id number] Folic Acid (Folic Acid 1 Mg Tab) 2 mg PO HS [facility] Stop: 08/25/20 20:59 Last Admin: 07/30/20 21:42 Dose: 2 mg Documented by: [id number] Admin: 07/29/20 22:16 Dose: 2 mg Documented by: [id number] Admin: 07/28/20 22:06 Dose: 2 mg Documented by: [id number] Admin: 07/27/20 22:07 Dose: 2 mg Documented by: [id number] Admin: 07/26/20 20:49 Dose: 2 mg Documented by: [id number] Hydroxyurea (Hydroxyurea 500 Mg Cap) 1,000 mg PO BID [facility] Stop: 08/25/20 08:59 Last Admin: 07/31/20 08:07 Dose: 1,000 mg Documented by: [id number] Cosigned by: [id number] Admin: 07/30/20 21:42 Dose: 1,000 mg Documented by: [id number] Cosigned by: [id number] Admin: 07/30/20 08:57 Dose: 1,000 mg Documented by: [id number] Cosigned by: [id number] Admin: 07/29/20 22:15 Dose: 1,000 mg Documented by: [id number] Cosigned by: [id number] Admin: 07/29/20 08:23 Dose: 1,000 mg Documented by: [id number] Cosigned by: [id number] Admin: 07/28/20 22:07 Dose: 1,000 mg Documented by: [id number] Cosigned by: [id number] Admin: 07/28/20 08:41 Dose: 1,000 mg Documented by: [id number] Cosigned by: [id number] Admin: 07/27/20 22:07 Dose: 1,000 mg Documented by: [id number] Cosigned by: [id number] Admin: 07/27/20 08:02 Dose: 1,000 mg Documented by: [id number] Cosigned by: [id number] Admin: 07/26/20 20:49 Dose: 1,000 mg Documented by: [id number] Cosigned by: [id number] Admin: 07/26/20 08:48 Dose: 1,000 mg Documented by: [id number] Cosigned by: [id number] Morphine Sulfate (Morphine Sulfate 4 Mg/Ml 1 Ml Carp\Vial) 4 mg IV Q2H PRN PRN Reason: Pain Stop: 08/09/20 09:04 Last Admin: 07/31/20 09:18 Dose: 4 mg Documented by: [id number] Admin: 07/31/20 07:12 Dose: 4 mg Documented by: [id number] Admin: 07/31/20 04:27 Dose: 4 mg Documented by: [id number] Admin: 07/31/20 02:10 Dose: 4 mg Documented by: [id number] Admin: 07/30/20 23:55 Dose: 4 mg Documented by: [id number] Admin: 07/30/20 21:51 Dose: 4 mg Documented by: [id number] Admin: 07/30/20 19:36 Dose: 4 mg Documented by: [id number] Admin: 07/30/20 16:59 Dose: 4 mg Documented by: [id number] Admin: 07/30/20 11:48 Dose: 4 mg Documented by: [id number] Admin: 07/30/20 07:55 Dose: 4 mg Documented by: [id number] Admin: 07/30/20 04:28 Dose: 4 mg Documented by: [id number] Admin: 07/30/20 02:08 Dose: 4 mg Documented by: [id number] Admin: 07/29/20 23:20 Dose: 4 mg Documented by: [id number] Admin: 07/29/20 20:46 Dose: 4 mg Documented by: [id number] Admin: 07/29/20 18:17 Dose: 4 mg Documented by: [id number] Admin: 07/29/20 16:00 Dose: 4 mg Documented by: [id number] Admin: 07/29/20 13:33 Dose: 4 mg Documented by: [id number] Admin: 07/29/20 11:22 Dose: 4 mg Documented by: [id number] Admin: 07/29/20 07:59 Dose: 4 mg Documented by: [id number] Admin: 07/29/20 03:54 Dose: 4 mg Documented by: [id number] Admin: 07/29/20 01:01 Dose: 4 mg Documented by: [id number] Admin: 07/28/20 22:17 Dose: 4 mg Documented by: [id number] Admin: 07/28/20 19:52 Dose: 4 mg Documented by: [id number] Admin: 07/28/20 17:44 Dose: 4 mg Documented by: [id number] Admin: 07/28/20 15:58 Dose: 4 mg Documented by: [id number] Admin: 07/28/20 13:39 Dose: 4 mg Documented by: [id number] Admin: 07/28/20 11:20 Dose: 4 mg Documented by: [id number] Admin: 07/28/20 08:38 Dose: 4 mg Documented by: [id number] Admin: 07/28/20 06:32 Dose: 4 mg Documented by: [id number] Admin: 07/28/20 03:11 Dose: 4 mg Documented by: [id number] Admin: 07/28/20 01:07 Dose: 4 mg Documented by: [id number] Admin: 07/27/20 22:03 Dose: 4 mg Documented by: [id number] Admin: 07/27/20 20:04 Dose: 4 mg Documented by: [id number] Admin: 07/27/20 18:00 Dose: 4 mg Documented by: [id number] Admin: 07/27/20 16:19 Dose: 4 mg Documented by: [id number] Admin: 07/27/20 14:25 Dose: 4 mg Documented by: [id number] Admin: 07/27/20 11:11 Dose: 4 mg Documented by: [id number] Admin: 07/27/20 08:00 Dose: 4 mg Documented by: [id number] Admin: 07/27/20 05:23 Dose: 4 mg Documented by: [id number] Admin: 07/27/20 01:45 Dose: 4 mg Documented by: [id number] Admin: 07/26/20 21:30 Dose: 4 mg Documented by: [id number] Admin: 07/26/20 19:14 Dose: 4 mg Documented by: [id number] Admin: 07/26/20 16:14 Dose: 4 mg Documented by: [id number] Admin: 07/26/20 13:53 Dose: 4 mg Documented by: [id number] Admin: 07/26/20 11:30 Dose: 4 mg Documented by: [id number] Ondansetron HCl (Ondansetron Inj 2 Mg/Ml 2 Ml Vial) 4 mg IV Q6H PRN PRN Reason: Nausea And Vomiting Stop: 08/25/20 03:29 Last Admin: 07/31/20 09:23 Dose: 4 mg Documented by: [id number] Admin: 07/29/20 07:59 Dose: 4 mg Documented by: [id number] Admin: 07/28/20 19:57 Dose: 4 mg Documented by: [id number] Admin: 07/27/20 22:19 Dose: 4 mg Documented by: [id number] Admin: 07/27/20 08:01 Dose: 4 mg Documented by: [id number] Admin: 07/26/20 20:54 Dose: 4 mg Documented by: [id number] Admin: 07/26/20 11:31 Dose: 4 mg Documented by: [id number] Admin: 07/26/20 03:55 Dose: 4 mg Documented by: [id number] Pantoprazole Sodium (Pantoprazole 40 Mg Tab) 40 mg PO HS [facility] Stop: 08/25/20 20:59 Last Admin: 07/30/20 21:42 Dose: 40 mg Documented by: [id number] Admin: 07/29/20 22:16 Dose: 40 mg Documented by: [id number] Admin: 07/28/20 22:06 Dose: 40 mg Documented by: [id number] Admin: 07/27/20 22:07 Dose: 40 mg Documented by: [id number] Admin: 07/26/20 20:50 Dose: 40 mg Documented by: [id number] Polyethylene Glycol (Polyethylene (Miralax) 17 Gm Pack) 17 gm PO BID PRN PRN Reason: constipation Stop: 08/25/20 03:29 Last Admin: 07/30/20 08:58 Dose: 17 gm Documented by: [id number] Pregabalin (Pregabalin 150 Mg Cap) 150 mg PO BID [facility] Stop: 08/28/20 20:59 Last Admin: 07/31/20 08:07 Dose: 150 mg Documented by: [id number] Admin: 07/30/20 21:45 Dose: 150 mg Documented by: [id number] Admin: 07/30/20 08:58 Dose: 150 mg Documented by: [id number] Admin: 07/29/20 22:17 Dose: 150 mg Documented by: [id number] Sennosides (Senna 8.6 Mg Tab) 17.2 mg PO QAM [facility] Stop: 08/25/20 08:59 Last Admin: 07/31/20 08:07 Dose: 17.2 mg Documented by: [id number] Admin: 07/30/20 08:58 Dose: 17.2 mg Documented by: [id number] Admin: 07/29/20 08:23 Dose: 17.2 mg Documented by: [id number] Admin: 07/28/20 08:41 Dose: 17.2 mg Documented by: [id number] Admin: 07/27/20 09:44 Dose: 17.2 mg Documented by: [id number] Admin: 07/26/20 08:48 Dose: 17.2 mg Documented by: [id number] Discontinued Medications Hydromorphone HCl (Hydromorphone Inj 1 Mg/Ml Syringe) 1 mg IV Q15M PRN PRN Reason: Pain Stop: 08/09/20 00:13 Last Admin: 07/26/20 01:46 Dose: 1 mg Documented by: [id number] Admin: 07/26/20 00:48 Dose: 1 mg Documented by: [id number] Hydromorphone HCl (Hydromorphone Inj 0.5 Mg/0.5 Ml Syr) 0.5 mg IV Q1HWA PRN PRN Reason: Pain Stop: 08/09/20 03:29 Last Admin: 07/26/20 08:50 Dose: 0.5 mg Documented by: [id number] Admin: 07/26/20 07:33 Dose: 0.5 mg Documented by: [id number] Admin: 07/26/20 03:55 Dose: 0.5 mg Documented by: [id number] Dextrose/Sodium Chloride (D5w And 1/2nss) 1,000 mls @ 1,000 mls/hr IV .Q1H STA Stop: 07/26/20 01:13 Last Infusion: 07/26/20 01:49 Dose: 0 mls/hr Documented by: [id number] Admin: 07/26/20 00:49 Dose: 1,000 mls/hr Documented by: [id number] Acetaminophen (Ofirmev) 1,000 mg in 100 mls @ 400 mls/hr IV NOW STA Stop: 07/26/20 00:28 Last Infusion: 07/26/20 01:00 Dose: 0 mls/hr Documented by: [id number] Admin: 07/26/20 00:49 Dose: 400 mls/hr Documented by: [id number] Magnesium Sulfate/Dextrose (Magnesium Sulfate / D5w) 1 gm in 100 mls @ 100 mls/hr IV NOW STA Stop: 07/26/20 01:14 Last Infusion: 07/26/20 02:01 Dose: 0 mls/hr Documented by: [id number] Admin: 07/26/20 00:49 Dose: 100 mls/hr Documented by: [id number] Sodium Chloride (1/2 Nss) 1,000 mls @ 100 mls/hr IV .Q10H [facility] Stop: 07/26/20 23:59 Last Infusion: 07/26/20 23:53 Dose: 0 mls/hr Documented by: [id number] Admin: 07/26/20 13:53 Dose: 100 mls/hr Documented by: [id number] Infusion: 07/26/20 13:30 Dose: 0 mls/hr Documented by: [id number] Admin: 07/26/20 03:30 Dose: 100 mls/hr Documented by: [id number] Ketorolac Tromethamine (Ketorolac Tromethamine 15 Mg/Ml Vial) 15 mg IV Q6H PRN PRN Reason: Pain Stop: 07/31/20 03:29 Last Admin: 07/30/20 18:27 Dose: 15 mg Documented by: [id number] Admin: 07/30/20 10:15 Dose: 15 mg Documented by: [id number] Admin: 07/29/20 22:18 Dose: 15 mg Documented by: [id number] Admin: 07/29/20 02:26 Dose: 15 mg Documented by: [id number] Admin: 07/27/20 12:50 Dose: 15 mg Documented by: [id number] Admin: 07/27/20 06:50 Dose: 15 mg Documented by: [id number] Admin: 07/26/20 21:00 Dose: 15 mg Documented by: [id number] Admin: 07/26/20 03:55 Dose: 15 mg Documented by: [id number] Menthol (Cough Drop (Sugar Free) Chau 24 Chau/1 Box) 1 chau BUCCAL NOW STA Stop: 07/28/20 09:00 Last Admin: 07/28/20 12:49 Dose: 1 chau Documented by: [id number] Ondansetron HCl (Ondansetron Inj 2 Mg/Ml 2 Ml Vial) 4 mg IV NOW STA Stop: 07/26/20 00:16 Last Admin: 07/26/20 00:48 Dose: 4 mg Documented by: [id number] Pregabalin (Pregabalin 50 Mg Cap) 50 mg PO BID [facility] Stop: 08/26/20 20:59 Last Admin: 07/28/20 08:41 Dose: 50 mg Documented by: [id number] Admin: 07/27/20 22:18 Dose: 50 mg Documented by: [id number] Pregabalin (Pregabalin 100 Mg Cap) 100 mg PO BID WALTER Stop: 08/27/20 20:59 Last Admin: 07/29/20 08:23 Dose: 100 mg Documented by: [id number] Admin: 07/28/20 22:06 Dose: 100 mg Documented by: [id number] Imaging Data Attestation: I personally reviewed and interpreted this imaging study as follows: Radiologist's Impression: Chest X-Ray 07/26/20 00:15 XR chest 1V portable CLINICAL HISTORY: Pt c/o sickle cell crisis COMPARISON STUDY: 06/27/2020 FINDINGS: The cardiac and mediastinal contours are normal. There is no evidence of focal pulmonary consolidation. There is no evidence of failure. No pleural effusions are visualized.[There are H shaped vertebra, finding consistent with the clinical history of sickle cell disease. IMPRESSION: No active disease in the chest. ACT 112: Negative or not required by law. Electronically signed by: Jacob Phillips M.D. 07/26/2020 8:07 AM Discharge Plan Visit Data Chief Complaint: Illness Stated Complaint: HURTS ALL OVER BODY, SICKLE CELL DISEASE ED Provider: Daniel Bautsita Discharge Problem: Sickle cell anemia, Chest pain Patient Disposition: Admitted As Inpatient Discharge Instructions Interventions: ED Discharge Assessment Last Done: 07/26/20 03:10 Discharge Problem: Sickle cell anemia Qualifiers: Sickle-cell associated disorders: with unspecified crisis Qualified Code(s): D57.00 - Hb-SS disease with crisis, unspecified Chest pain Qualifiers: Chest pain type: unspecified Qualified Code(s): R07.9 - Chest pain, unspecified
[2020-07-31] MEDS ORDERED: traMADol HCL 50 MG TABLET PO PRN (11:56)
[2020-07-31] MEDS: SODIUM CHLORIDE 0.9% 1000ML 1,000 ML IV SCH ×2 (12:09→23:02)
[2020-07-31] MEDS: POLYETHYLENE (MIRALAX) 17 GM PACK PO SCH (12:23)
[2020-07-31] MEDS: oxyCODONE/ACETAMINOPHEN 5mg/325mg TAB PO PRN (15:20)
[2020-07-31] MEDS: busPIRone 15 MG TAB PO SCH (19:44)
[2020-07-31] MEDS: PANTOprazole 40 MG TAB PO SCH (19:44)
[2020-07-31] MEDS: DULoxetine HCL 60 MG CAP PO SCH (19:44)
[2020-07-31] MEDS: FOLIC ACID 1 MG TAB PO SCH (19:44)
[2020-08-01] MEDS: oxyCODONE/ACETAMINOPHEN 5mg/325mg TAB PO PRN ×2 (01:27→09:48)
[2020-08-01] MEDS: MoRPHine SULFATE 4 MG/ML 1 ML CARP\\VIAL IV PRN ×9 (03:55→23:29)
[2020-08-01 06:46] LABS: Hematocrit (blood only) 23.9 % (37-47); Hemoglobin 8.5 g/dL (12.0-16.0); Mean Corpuscular Hemoglobin 39.7 pg (25-34); Mean Corpuscular Hgb Conc 35.6 g/dL (32-36); Mean Corpuscular Volume 111.7 fL (80-100); Mean Platelet Volume 9.2 fL (7.4-10.4); Nucleated RBC # (auto) 0.12 K/uL (0-0); Nucleated RBC % (auto) 2.1 %; Platelet Count 304 K/uL (130-400); RDW Coefficient of Variation 18.4 % (11.5-14.5); RDW Standard Deviation 74.5 fL (36.4-46.3); Red Blood Count 2.14 M/uL (4.2-5.4); White Blood Count 5.81 K/uL (4.8-10.8)
[2020-08-01 07:26] LABS: Alanine Aminotransferase 40 U/L (12-78); Albumin Level 3.2 gm/dl (3.4-5.0); Aspartate Aminotransferase 39 U/L (15-37); BUN Creatinine Ratio 23.4 (10-20); Blood Urea Nitrogen 10 mg/dl (7-18); Calcium 8.6 mg/dl (8.5-10.1); Carbon Dioxide 28 mmol/L (21-32); Chloride 107 mmol/L (98-107); Creatinine Clr Calc Pharmacy 213.4 ml/min; Est GFR (African American) > 150.0 ml/min; Est GFR (Non-African American) 145.5 ml/min; Glucose 86 mg/dl (70-99); Sodium 141 mmol/L (136-145)
[2020-08-01 07:29] LABS: Alkaline Phosphatase 78 U/L (45-117); Bilirubin Direct 0.3 mg/dl (0-0.2); Bilirubin,Total 1.3 mg/dl (0.2-1); Total Protein 6.8 gm/dl (6.4-8.2)
--- NOTE | 2020-08-01 08:55 | Hospitalist Progress Note ---
Date of Service August 01, 2020 Assessment & Plan (1) Vaso-occlusive sickle cell crisis: Supportive care, IVF ordered for some dehydration/elevated Tbili -- improving on AM labs Baseline hgb 9-10 Currently 8.5 (was discharged last month at 8.4 and on continued IVF) Pain control -- had been getting only IV Morphine around the clock --Ordered Percocet, tramadol prn to hopefully wean off IV pain control --> Morphine increased back to 4mg IV prn, added back toradol as previously reported issue but had been helpful. Holding PO percocet for now Voltaren gel for chest discomfort -- controlled per patient and would continue CXR pending for cp/sob reported but not above her baseline with previous episodes, trop added Retic count elevated 6.1% and making RBCs Hopefully home in next 1-2 days (2) Sickle cell anemia: Continue folic acid and hydroxyurea. Outpatient follow-up with hematologyit seems likely she will follow closer now. Also her PCP is trying to help arrange follow-up with a sickle cell center - have been in touch w PCP during this stay. (3) GERD (gastroesophageal reflux disease): Chronic. no complaints of this -Continue Protonix 40mg po qHS (4) Depression: Continue duloxetine, doxepin, BuSpar. Would likely benefit from outpatient chronic pain counseling/psychology (5) Chronic pain: We have had discussions, and she is well aware that not all of her pain is likely directly related to her sickle cell vaso-occlusion at this pointwe both agree that it is likely that there is a degree of neuropathic pain just due to the acuity/chronicity of her pain, as well as possibly a degree of narcotics- induced hyperalgesia. However, this very difficult situation, given that her sickle cell also and of itself does cause rather tremendous pain. She would like to minimize narcotics on a chronic basis when she can, but has noted that of course with the severity of her pain is very difficult. We will have her follow-up with pain management as an outpatient, a multimodal approach with the sickle cell center and psychology could also be helpful, and we have been titrating Lyrica herman notes feeling a little groggy but would prefer to continue this working off of the assumption that her body will adapt, and the grogginess will likely lessen. We also discussed that while she does seem to have a little bit of improved pain control right now, the pain control often comes on more of a delay as her body reaches more of a steady state with medication. Could also potentially raise her duloxetine to more pain modulating doses in the future as well. (6) Elevated LFTs: ELevated Tbili in the past, likely component of dehydration. AST 45 Prior + Lyme, negative anaplasmosis, CMV indicative of prior infection. Parvovirus negative. Do not see any hx of mono/etc -- will check with patient Tbili 1.5 on 07/29, provided IVF but none ordered for yesterday into today -- see above Improved Tbili 1.3, DB 0.3, AST 39 GB US with few stones, no thickening, no RUQ discomfort/nausea/vomiting Continue to trend DVT Proph = Lovenox SQ added for DVT prophylaxis Dispo: continued inpatient stay Admission and Anticipated Discharge Date Admission Date: July 26, 2020 Supervising Physician Co-Signing Physician Notes ROLA Supervision Note: I did not personally see or examine the patient today, but I verified all amaro points of ROLA Alonso's assessment and plan with the following exceptions/additions: advise weaning off IV morphine in the next 24 hours Subjective Patient evaluated this morning. Pain increased today. CP similar to previous episodes. Diclofenac helpful but with increased pain, all over, attention to chest, back, leg, and increased with ambulation. PO oxycodone ineffective. Morphine to be increased back to 4mg dose. Patient did not endorse inability to tolerate toradol and we will add this back on to see if added benefit/relief of pain. Patient currently eating pancakes, just got back from GB US -- few small gallstones, no GB wall thickening, CBD normal caliber. No fever, chills, nausea, vomiting, dysuria at this time. Review of Systems Review of Systems: All systems reviewed & are unremarkable except as noted in HPI & below Physical Exam Physical Exam: General she is awake and alert pleasant, stating 8/10 pain up in bed eating pancakes, talking on laptop with friend Moist mm Resp: CTAB, no w/c/r, diminished in the bases Cardiac: RRR, no murmur, no edema Abd: soft, non-tender, +BS throughout, generalized tenderness reported but without guarding or rigidity Ext: warm, moist Neuro: No focal deficits Psych: AOX3 Results & Data Results & Data ([facility]) Vital Signs (Past 12 Hours) Vital Signs Temp Pulse Resp BP Pulse Ox 07/31/20 22:55 36.9 C 77 16 109/73 97 Laboratory Results 08/01/20 08/01/20 07/31/20 Range/Units 06:04 06:04 08:54 WBC 5.81 (4.8-10.8) K/uL RBC 2.14 L (4.2-5.4) M/uL Hgb 8.5 L (12.0-16.0) g/dL Hct 23.9 L (37-47) % MCV 111.7 H (80-100) fL MCH 39.7 H (25-34) pg MCHC 35.6 (32-36) g/dL RDW Std Deviation 74.5 H (36.4-46.3) fL RDW Coeff of Nando 18.4 H (11.5-14.5) % Plt Count 304 (130-400) K/uL MPV 9.2 (7.4-10.4) fL Absolute Nucleated RBC 0.12 H (0-0) K/uL Nucleated RBC % (auto) 2.1 % Sodium 141 (136-145) mmol/L Potassium 4.0 (3.5-5.1) mmol/L Chloride 107 (98-107) mmol/L Carbon Dioxide 28 (21-32) mmol/L Anion Gap 6.0 (3-11) BUN 10 (7-18) mg/dl Creatinine 0.42 L (0.6-1.2) mg/dl Est Cr Clr Drug Dosing 213.4 ml/min Est GFR ( Amer) > 150.0 ml/min Est GFR (Non-Af Amer) 145.5 ml/min BUN/Creatinine Ratio 23.4 H (10-20) Glucose 86 (70-99) mg/dl Calcium 8.6 (8.5-10.1) mg/dl Total Bilirubin 1.3 H 1.2 H (0.2-1) mg/dl Direct Bilirubin 0.3 H 0.3 H (0-0.2) mg/dl AST 39 H 45 H (15-37) U/L ALT 40 40 (12-78) U/L Alkaline Phosphatase 78 84 (45-117) U/L Total Protein 6.8 6.9 (6.4-8.2) gm/dl Albumin 3.2 L 3.2 L (3.4-5.0) gm/dl 07/31/20 07/31/20 Range/Units 08:54 08:54 WBC 6.49 (4.8-10.8) K/uL RBC 2.16 L (4.2-5.4) M/uL Hgb 8.7 L (12.0-16.0) g/dL Hct 24.3 L (37-47) % MCV 112.5 H (80-100) fL MCH 40.3 H (25-34) pg MCHC 35.8 (32-36) g/dL RDW Std Deviation 73.1 H (36.4-46.3) fL RDW Coeff of Nando 17.9 H (11.5-14.5) % Plt Count 286 (130-400) K/uL MPV 8.9 (7.4-10.4) fL Absolute Nucleated RBC 0.12 H (0-0) K/uL Nucleated RBC % (auto) 1.9 % Sodium 139 (136-145) mmol/L Potassium 4.0 (3.5-5.1) mmol/L Chloride 105 (98-107) mmol/L Carbon Dioxide 28 (21-32) mmol/L Anion Gap 6.0 (3-11) BUN 10 (7-18) mg/dl Creatinine 0.47 L (0.6-1.2) mg/dl Est Cr Clr Drug Dosing 190.7 ml/min Est GFR ( Amer) > 150.0 ml/min Est GFR (Non-Af Amer) 140.2 ml/min BUN/Creatinine Ratio 20.6 H (10-20) Glucose 86 (70-99) mg/dl Calcium 8.8 (8.5-10.1) mg/dl Total Bilirubin (0.2-1) mg/dl Direct Bilirubin (0-0.2) mg/dl AST (15-37) U/L ALT (12-78) U/L Alkaline Phosphatase (45-117) U/L Total Protein (6.4-8.2) gm/dl Albumin (3.4-5.0) gm/dl PG Care Time/CCT Total # of Minutes Spent Total Time Spent with Patient: Total time spent is greater than 50% in coordination of care (as documented) at patient's floor/unit and/or counseling patient: Coding Level of Care Code 03803 Subseq Obs Care Lvl 3 Diagnoses Vaso-occlusive sickle cell crisis D57.00 Sickle cell anemia D57.00 Sickle-cell associated disorders: with unspecified crisis GERD (gastroesophageal reflux disease) K21.9 Esophagitis presence: esophagitis presence not specified Depression F33.2 Active/Remission status: currently active Depression Type: major depressive disorder Major depression episode severity: severe Major depression recurrence: recurrent Psychotic features: without psychotic features Chronic pain G89.29 Elevated LFTs R79.89 (1) Sickle cell anemia Sickle-cell associated disorders: with unspecified crisis Qualified Code(s): D57.00 - Hb-SS disease with crisis, unspecified (2) Depression Active/Remission status: currently active Depression Type: major depressive disorder Major depression episode severity: severe Major depression recurrence: recurrent Psychotic features: without psychotic features Qualified Code(s): F33.2 - Major depressive disorder, recurrent severe without psychotic features (3) GERD (gastroesophageal reflux disease) Esophagitis presence: esophagitis presence not specified Qualified Code(s): K21.9 - Gastro-esophageal reflux disease without esophagitis
[2020-08-01] MEDS: HYDROXYUREA 500 MG CAP PO SCH ×2 (08:58→19:31)
[2020-08-01] MEDS: PREGABALIN 150 MG CAP PO SCH ×2 (08:58→19:30)
[2020-08-01] MEDS: SENNA 8.6 MG TAB PO SCH (08:58)
[2020-08-01] MEDS: DICLOFENAC SOD 1% GEL 100 GM TUBE EXT SCH ×4 (08:59→19:30)
[2020-08-01] MEDS: POLYETHYLENE (MIRALAX) 17 GM PACK PO SCH (08:59)
[2020-08-01 09:42] LABS: Reticulocyte % 6.1 % (0.5-2.0); Reticulocytes # 0.13 10^6/uL (0.02-0.10)
[2020-08-01] MEDS: SODIUM CHLORIDE 0.9% 1000ML 1,000 ML IV SCH ×2 (09:47→21:18)
--- NOTE | 2020-08-01 10:27 | Ultrasound Report ---
ABDOMINAL ULTRASOUND, RIGHT UPPER QUADRANT HISTORY: elevated total bilirubin, right upper quadrant abdominal pain, sickle cell. COMPARISON: Abdominal ultrasound 07/04/2020. FINDINGS: Pancreas: The pancreas demonstrates a normal echotexture. Liver: Unremarkable. Gallbladder: No gallbladder wall thickening. A few small mobile echogenic foci measuring up to 4 mm. These likely represent small stones.. CBD: 4 mm. Right kidney: No hydronephrosis. IMPRESSION: 1. A few small gallstones. No gallbladder wall thickening. 2. Normal caliber common bile duct. ACT 112: Negative or not required by law. Electronically signed by: Cortes Fletcher M.D. 08/01/2020 10:26 AM
[2020-08-01 12:27] LABS: Creatine Kinase 44 U/L (26-192); Troponin I < 0.015 ng/ml (0-0.045)
[2020-08-01] MEDS: ENOXAPARIN INJ 30 MG/0.3 ML SYR SQ SCH (13:34)
--- NOTE | 2020-08-01 13:56 | XRay Report ---
SINGLE VIEW CHEST CLINICAL HISTORY: Dyspnea. Atypical chest pain. FINDINGS: An AP, portable, upright chest radiograph is compared to study dated 07/26/2020. The cardiome diastinal silhouette is top normal for projection. The lungs and pleural spaces are clear. No pneumot horax is seen. The bony thorax is grossly intact. IMPRESSION: No active disease in the chest. ACT 112: Negative or not required by law. Electronically signed by: Richard Mcmahon M.D. 08/01/2020 1:55 PM
[2020-08-01] MEDS ORDERED: bisacodyL 5 MG TABEC PO ONE (18:21)
[2020-08-01] MEDS: KETOROLAC TROMETHAMINE 15 MG/ML VIAL IV PRN (19:29)
[2020-08-01] MEDS: FOLIC ACID 1 MG TAB PO SCH (19:30)
[2020-08-01] MEDS: DULoxetine HCL 60 MG CAP PO SCH (19:30)
[2020-08-01] MEDS: busPIRone 15 MG TAB PO SCH (19:30)
[2020-08-01] MEDS: PANTOprazole 40 MG TAB PO SCH (19:31)
[2020-08-02] MEDS: MoRPHine SULFATE 4 MG/ML 1 ML CARP\\VIAL IV PRN ×4 (01:45→09:57)
[2020-08-02] MEDS: KETOROLAC TROMETHAMINE 15 MG/ML VIAL IV PRN ×2 (01:46→14:34)
[2020-08-02] MEDS ORDERED: MoRPHine SULFATE 2 MG/ML CARP ONE (07:53)
[2020-08-02 08:32] LABS: Hematocrit (blood only) 24.3 % (37-47); Hemoglobin 8.5 g/dL (12.0-16.0); Mean Corpuscular Hemoglobin 39.9 pg (25-34); Mean Corpuscular Volume 114.1 fL (80-100); Mean Platelet Volume 9.4 fL (7.4-10.4); Nucleated RBC # (auto) 0.26 K/uL (0-0); Nucleated RBC % (auto) 5.5 %; Platelet Count 342 K/uL (130-400); RDW Coefficient of Variation 18.3 % (11.5-14.5); RDW Standard Deviation 75.4 fL (36.4-46.3); Red Blood Count 2.13 M/uL (4.2-5.4); White Blood Count 4.79 K/uL (4.8-10.8)
[2020-08-02] MEDS: POLYETHYLENE (MIRALAX) 17 GM PACK PO SCH (08:59)
[2020-08-02] MEDS: PREGABALIN 150 MG CAP PO SCH ×2 (09:00→20:57)
[2020-08-02] MEDS: HYDROXYUREA 500 MG CAP PO SCH ×2 (09:00→20:58)
[2020-08-02] MEDS: ENOXAPARIN INJ 30 MG/0.3 ML SYR SQ SCH (09:00)
[2020-08-02] MEDS: SENNA 8.6 MG TAB PO SCH (09:00)
[2020-08-02] MEDS: DICLOFENAC SOD 1% GEL 100 GM TUBE EXT SCH ×4 (09:01→20:58)
[2020-08-02 09:04] LABS: Alanine Aminotransferase 39 U/L (12-78); Albumin Level 3.4 gm/dl (3.4-5.0); Aspartate Aminotransferase 35 U/L (15-37); BUN Creatinine Ratio 23.8 (10-20); Blood Urea Nitrogen 11 mg/dl (7-18); Carbon Dioxide 28 mmol/L (21-32); Chloride 107 mmol/L (98-107); Creatinine Clr Calc Pharmacy 190.7 ml/min; Est GFR (African American) > 150.0 ml/min; Est GFR (Non-African American) 140.2 ml/min; Glucose 85 mg/dl (70-99); Potassium 3.9 mmol/L (3.5-5.1); Sodium 139 mmol/L (136-145)
[2020-08-02] MEDS: SODIUM CHLORIDE 0.9% 1000ML 1,000 ML IV SCH (09:06)
[2020-08-02 09:07] LABS: Albumin Globulin Ratio 0.9 (0.9-2); Alkaline Phosphatase 87 U/L (45-117); Bilirubin,Total 1.2 mg/dl (0.2-1); Globulin 3.9 gm/dl (2.5-4.0); Total Protein 7.3 gm/dl (6.4-8.2)
[2020-08-02 09:30] LABS: Basophils # (auto) 0.02 K/uL (0-0.2); Basophils % (auto) 0.4 %; Eosinophils # (auto) 0.13 K/uL (0-0.5); Eosinophils % (auto) 2.7 %; Immature Granulocytes # (auto) 0.03 K/uL (0.00-0.02); Immature Granulocytes % (auto) 0.6 %; Lymphocytes # (auto) 2.76 K/uL (1.2-3.4); Lymphocytes % (auto) 57.6 %; Macrocytosis Present; Monocytes # (auto) 0.39 K/uL (0.11-0.59); Monocytes % (auto) 8.1 %; Neutrophils # (auto) 1.46 K/uL (1.4-6.5); Neutrophils % (auto) 30.6 %; Polychromasia 1+; Target Cells 1+
--- NOTE | 2020-08-02 10:13 | Hospitalist Progress Note ---
Date of Service August 02, 2020 Assessment & Plan (1) Vaso-occlusive sickle cell crisis: 20yo female with SSA presenting with acute pain crisis. Patient is afebrile, HD stable. Mild chest pain. Complaining of diffuse body pain. No neurological compromise. Sickle cell crisis Satting well on room air Continue folic acid, hydroxyurea PO Incentive spirometry - Pain control: - Percocet 7.5/325 2 tabs BID sched - Morphine 2mg IV Q3H PRN - Toradol 10 mg IV Q6H PRN - Bowel regimen - Scheduled miralax, senna daily - PRN miralax, docusate, Continue zofran prn for nausea Continue incentive spirometry Daily CBC, reticulocyte count - Transfusion cutoff: Hg<7, Hct <25 - will transfuse 2u pRBC today given hct of 24 Chronic Pain Continue lyrica 150mg BID Continue duloxetine GERD Chronic, well-controlled Continue protonix PO Borderline PD with Depression Chronic, well-controlled at this time per patient - following with Dr. Alberto outpatient Buspar 15 TID - plan to initiate DBT with outpatient psych services Sleep disturbance/Insomnia - chronic. No improvement with trazodone, doxepin, melatonin. FEN: regular diet Code status: full code DVT ppx: lovenox 30 sq Isolation: none Consults: none Dispo: med/surg (2) Sickle cell anemia: (3) GERD (gastroesophageal reflux disease): (4) Depression: Admission and Anticipated Discharge Date Admission Date: July 26, 2020 Supervising Physician Co-Signing Physician Notes I saw the patient concurrent resident physician and confirmed amaro portions of the history and physical examination. Agree with impression and plan as noted in the resident documentation. At the time of our exam, patient was sleepy but easily awakens to voice. I have seen her on previous admissions; she tells me today that this admission is about average in terms of pain and duration; she notes no unusual during this crises when compared to previous. Exam 119/82, 83, 18, 36.7 C, 98% on room air Alert and oriented. She appears tired Lungs clear; nonlabored respirations Heart regular Data Hemoglobin 8.5, hematocrit 24.3% Sodium 139, potassium 3.9, BUN 11, creatinine 0.47. Chest x-ray from yesterday shows no acute disease. A right upper quadrant abdominal ultrasound from yesterday shows a few small gallstones without gallbladder wall thickening or signs of acute cholecystitis. Impression and plan Vaso-occlusive sickle cell crises Sickle cell anemia Depression Chronic pain Per resident documentation. Patient is hematocrit is at level were hematology had previously suggested transfusion. This was discussed with the patient. Risk and benefits were discussed. Consent was obtained. Subjective bodywide pain this morning. states that she had bad pain last week when she came to see me in the office and by the time she was done with her appointment with Dr. Dietrich, she was in severe pain and didn't have access to the increased pain medication dosing, and had to call the EMS to bring her to the hospital to achieve pain control. Says pain this mornign was 5-6/10, functional ability would be at a 3. No CP, SOB, N/V. Review of Systems Review of Systems: All systems reviewed & are unremarkable except as noted in HPI & below Physical Exam Physical Exam: Constitutional: laying in bed under pile of blankets, shivering and cold Eyes: EOMI, pupils equal and reactive bilaterally, no scleral icterus Cardiac: RRR, Pulm: CTA BL, no wheezes, rhonchi, crackles or rubs, moving air well throughout both lungs Abd: soft, nontender, Extremities: 2+ peripheral pulses, no edema Neuro: no focal deficits, moving all 4 limbs, A&Ox3 Results & Data Results & Data ([facility]) Vital Signs (Past 12 Hours) Vital Signs Temp Pulse Resp BP Pulse Ox 08/02/20 08:56 36.9 C 83 18 119/82 98 08/01/20 22:36 36.9 C 91 H 16 112/74 97 Laboratory Results WBC 4.79 K/uL (4.8-10.8) L 08/02/20 07:50 RBC 2.13 M/uL (4.2-5.4) L 08/02/20 07:50 Hgb 8.5 g/dL (12.0-16.0) L 08/02/20 07:50 Hct 24.3 % (37-47) L 08/02/20 07:50 MCV 114.1 fL (80-100) H 08/02/20 07:50 MCH 39.9 pg (25-34) H 08/02/20 07:50 MCHC 35.0 g/dL (32-36) 08/02/20 07:50 RDW Std Deviation 75.4 fL (36.4-46.3) H 08/02/20 07:50 RDW Coeff of Nando 18.3 % (11.5-14.5) H 08/02/20 07:50 Plt Count 342 K/uL (130-400) 08/02/20 07:50 MPV 9.4 fL (7.4-10.4) 08/02/20 07:50 Immature Gran % (Auto) 0.6 % 08/02/20 07:50 Neut % (Auto) 30.6 % 08/02/20 07:50 Lymph % (Auto) 57.6 % 08/02/20 07:50 [place] % (Auto) 8.1 % 08/02/20 07:50 Eos % (Auto) 2.7 % 08/02/20 07:50 Baso % (Auto) 0.4 % 08/02/20 07:50 Reticulocyte % (Auto) 6.1 % (0.5-2.0) H 08/01/20 06:04 Neut # (Auto) 1.46 K/uL (1.4-6.5) 08/02/20 07:50 Lymph # (Auto) 2.76 K/uL (1.2-3.4) 08/02/20 07:50 [place] # (Auto) 0.39 K/uL (0.11-0.59) 08/02/20 07:50 Eos # (Auto) 0.13 K/uL (0-0.5) 08/02/20 07:50 Baso # (Auto) 0.02 K/uL (0-0.2) 08/02/20 07:50 Reticulocyte # 0.13 10^6/uL (0.02-0.10) H 08/01/20 06:04 Immature Gran # (Auto) 0.03 K/uL (0.00-0.02) H 08/02/20 07:50 Absolute Nucleated RBC 0.26 K/uL (0-0) H 08/02/20 07:50 Nucleated RBC % (auto) 5.5 % 08/02/20 07:50 Polychromasia 1+ 08/02/20 07:50 Macrocytosis Present 08/02/20 07:50 Pappenheimer Bodies 1+ 07/27/20 05:34 Sickle Cells Occasional 07/27/20 05:34 Target Cells 1+ 08/02/20 07:50 [place] Bodies Occasional 07/26/20 00:43 PT 10.5 Seconds (9.0-12.0) 07/26/20 00:43 INR 1.0 (0.9-1.1) 07/26/20 00:43 APTT 21.3 Seconds (21.0-31.0) 07/26/20 00:43 PTT Ratio 0.8 07/26/20 00:43 Sodium 139 mmol/L (136-145) 08/02/20 07:50 Potassium 3.9 mmol/L (3.5-5.1) 08/02/20 07:50 Chloride 107 mmol/L (98-107) 08/02/20 07:50 Carbon Dioxide 28 mmol/L (21-32) 08/02/20 07:50 Anion Gap 5.0 (3-11) 08/02/20 07:50 BUN 11 mg/dl (7-18) 08/02/20 07:50 Creatinine 0.47 mg/dl (0.6-1.2) L 08/02/20 07:50 Est Cr Clr Drug Dosing 190.7 ml/min 08/02/20 07:50 Est GFR ( Amer) > 150.0 ml/min 08/02/20 07:50 Est GFR (Non-Af Amer) 140.2 ml/min 08/02/20 07:50 BUN/Creatinine Ratio 23.8 (10-20) H 08/02/20 07:50 Glucose 85 mg/dl (70-99) 08/02/20 07:50 Calcium 9.0 mg/dl (8.5-10.1) 08/02/20 07:50 Total Bilirubin 1.2 mg/dl (0.2-1) H 08/02/20 07:50 Direct Bilirubin 0.3 mg/dl (0-0.2) H 08/01/20 06:04 AST 35 U/L (15-37) 08/02/20 07:50 ALT 39 U/L (12-78) 08/02/20 07:50 Alkaline Phosphatase 87 U/L (45-117) 08/02/20 07:50 Total Creatine Kinase 44 U/L (26-192) 08/01/20 06:04 Troponin I < 0.015 ng/ml (0-0.045) 08/01/20 06:04 Total Protein 7.3 gm/dl (6.4-8.2) 08/02/20 07:50 Albumin 3.4 gm/dl (3.4-5.0) 08/02/20 07:50 Globulin 3.9 gm/dl (2.5-4.0) 08/02/20 07:50 Albumin/Globulin Ratio 0.9 (0.9-2) 08/02/20 07:50 HCG, Qual Negative (Negative) 07/26/20 00:44 COVID-19 Eval Order Covid19 at [facility] 07/26/20 01:35 SARS-CoV-2 (PCR) NEGATIVE (Negative) 07/26/20 01:35 Blood Type B Positive 08/02/20 10:54 Antibody Screen NEGATIVE 08/02/20 10:54 Impressions Gallbladder Ultrasound 08/01/20 08:52 ABDOMINAL ULTRASOUND, RIGHT UPPER QUADRANT HISTORY: elevated total bilirubin, right upper quadrant abdominal pain, sickle cell. COMPARISON: Abdominal ultrasound 07/04/2020. FINDINGS: Pancreas: The pancreas demonstrates a normal echotexture. Liver: Unremarkable. Gallbladder: No gallbladder wall thickening. A few small mobile echogenic foci measuring up to 4 mm. These likely represent small stones.. CBD: 4 mm. Right kidney: No hydronephrosis. IMPRESSION: 1. A few small gallstones. No gallbladder wall thickening. 2. Normal caliber common bile duct. ACT 112: Negative or not required by law. Electronically signed by: Cortes Fletcher M.D. 08/01/2020 10:26 AM Chest X-Ray 08/01/20 11:47 SINGLE VIEW CHEST CLINICAL HISTORY: Dyspnea. Atypical chest pain. FINDINGS: An AP, portable, upright chest radiograph is compared to study dated 07/26/2020. The cardiomediastinal silhouette is top normal for projection. The lungs and pleural spaces are clear. No pneumothorax is seen. The bony thorax is grossly intact. IMPRESSION: No active disease in the chest. ACT 112: Negative or not required by law. Electronically signed by: Richard Mcmahon M.D. 08/01/2020 1:55 PM Resident Activity Tracking Resident Involvement: Resident Care Provided Care Provided: Adult [facility] Medicine (1) Sickle cell anemia Sickle-cell associated disorders: with unspecified crisis Qualified Code(s): D57.00 - Hb-SS disease with crisis, unspecified (2) Depression Active/Remission status: currently active Depression Type: major depressive disorder Major depression episode severity: severe Major depression recurrence: recurrent Psychotic features: without psychotic features Qualified Code(s): F33.2 - Major depressive disorder, recurrent severe without psychotic features (3) GERD (gastroesophageal reflux disease) Esophagitis presence: esophagitis presence not specified Qualified Code(s): K21.9 - Gastro-esophageal reflux disease without esophagitis
[2020-08-02] MEDS ORDERED: MoRPHine SULFATE 2 MG/ML CARP IV PRN (10:31)
[2020-08-02] MEDS: oxyCODONE/APAP 7.5/325MG TAB PO SCH ×2 (11:03→20:57)
[2020-08-02] MEDS: SODIUM CHLORIDE 0.45 % 1,000 ML IV SCH ×2 (11:04→19:50)
[2020-08-02] MEDS: busPIRone 15 MG TAB PO SCH ×2 (14:29→20:58)
[2020-08-02] MEDS ORDERED: SODIUM CHLORIDE 0.9% 250 ML IV PRN (14:40)
[2020-08-02] MEDS: MoRPHine SULFATE 2 MG/ML CARP IV PRN ×3 (16:05→22:21)
[2020-08-02] MEDS: PANTOprazole 40 MG TAB PO SCH (20:57)
[2020-08-02] MEDS: FOLIC ACID 1 MG TAB PO SCH (20:57)
[2020-08-02] MEDS: DULoxetine HCL 60 MG CAP PO SCH (20:58)
[2020-08-03] MEDS: MoRPHine SULFATE 2 MG/ML CARP IV PRN ×4 (01:27→14:00)
[2020-08-03] MEDS: SODIUM CHLORIDE 0.45 % 1,000 ML IV SCH ×2 (04:02→14:00)
[2020-08-03 07:51] LABS: Basophils # (auto) 0.01 K/uL (0-0.2); Basophils % (auto) 0.2 %; Eosinophils # (auto) 0.11 K/uL (0-0.5); Eosinophils % (auto) 2.4 %; Hematocrit (blood only) 31.4 % (37-47); Immature Granulocytes # (auto) 0.02 K/uL (0.00-0.02); Immature Granulocytes % (auto) 0.4 %; Lymphocytes # (auto) 2.63 K/uL (1.2-3.4); Lymphocytes % (auto) 56.8 %; Mean Corpuscular Hemoglobin 36.5 pg (25-34); Mean Corpuscular Volume 104.3 fL (80-100); Mean Platelet Volume 9.4 fL (7.4-10.4); Monocytes # (auto) 0.28 K/uL (0.11-0.59); Neutrophils # (auto) 1.58 K/uL (1.4-6.5); Neutrophils % (auto) 34.2 %; Nucleated RBC # (auto) 0.32 K/uL (0-0); Nucleated RBC % (auto) 6.8 %; Platelet Count 331 K/uL (130-400); RDW Coefficient of Variation 21.4 % (11.5-14.5); RDW Standard Deviation 80.8 fL (36.4-46.3); Red Blood Count 3.01 M/uL (4.2-5.4); White Blood Count 4.63 K/uL (4.8-10.8)
[2020-08-03 08:01] LABS: BUN Creatinine Ratio 17.5 (10-20); Blood Urea Nitrogen 9 mg/dl (7-18); Calcium 9.1 mg/dl (8.5-10.1); Carbon Dioxide 27 mmol/L (21-32); Chloride 106 mmol/L (98-107); Creatinine Clr Calc Pharmacy 182.9 ml/min; Est GFR (African American) > 150.0 ml/min; Est GFR (Non-African American) 138.3 ml/min; Glucose 86 mg/dl (70-99); Potassium 3.7 mmol/L (3.5-5.1); Sodium 139 mmol/L (136-145)
[2020-08-03 08:20] LABS: Anisocytosis Present; Howell-Jolly Bodies 1+; Ovalocytes 1+; Pappenheimer Bodies 1+; Polychromasia 1+; Sickle Cells Occasional; Target Cells 1+
[2020-08-03 08:29] LABS: Anisocytosis Present; Howell-Jolly Bodies 1+; Pappenheimer Bodies Occasional; Sickle Cells Occasional
--- NOTE | 2020-08-03 08:41 | Hospitalist Progress Note ---
Date of Service August 03, 2020 Assessment & Plan (1) Vaso-occlusive sickle cell crisis: 20yo female with SSA presenting with acute pain crisis. Patient is afebrile, HD stable. Mild chest pain. Complaining of diffuse body pain. No neurological compromise. Sickle cell crisis: resolved - s/p 2u pRBC transfusion Satting well on room air Continue folic acid, hydroxyurea PO Incentive spirometry Chronic Pain Continue lyrica 150mg BID Continue duloxetine - Pain control: - Percocet 7.5/325 2 tabs BID sched converted --> Oxycodone 10 mg TID sched - Morphine 4mg IV Q2H PRN - Toradol 10 mg IV Q6H PRN - Bowel regimen - Scheduled miralax, senna daily - PRN miralax, docusate, GERD Chronic, well-controlled Continue protonix PO Borderline PD with Depression Chronic, well-controlled at this time per patient - following with Dr. Alberto outpatient Buspar 15 TID - plan to initiate DBT with outpatient psych services Sleep disturbance/Insomnia - chronic. No improvement with trazodone, doxepin, melatonin. FEN: regular diet Code status: full code DVT ppx: lovenox 30 sq Isolation: none Consults: none Dispo: med/surg (2) Sickle cell anemia: (3) GERD (gastroesophageal reflux disease): (4) Depression: Admission and Anticipated Discharge Date Admission Date: July 26, 2020 Supervising Physician Co-Signing Physician Notes I saw the patient concurrent resident physician and confirmed amaro portions of the history and physical examination. Agree with impression and plan as noted in the resident documentation. Patient looks better today. She is seated in bed with a friend watching a movie. She is eating outside food. She is more interactive; smiles. Still having pain although less compared to yesterday. Exam 124/79, 57, 16, 36.5, 96% on room air Alert and oriented. Lungs clear; nonlabored respirations Heart regular Data Hemoglobin 11, up from 8.5. Hematocrit 31.4, up from 24.3 BUN 9, creatinine 0.49 Impression and plan Vaso-occlusive sickle cell crises Sickle cell anemia Depression Chronic pain She generally looks better today when compared to yesterday Discussed options for continued pain management. One consideration would be to take her current oxycodone dose (15 mg twice daily), and spread out to 10 mg 3 times a day. Also discussed switching from Percocet to oxycodone to lessen her acetaminophen burden over time. Subjective somewhat improved this morning. didn't notice a tangible improvement after transfusion. says chronic baseline pain hasn't improved much and morphine 4mg was making better improvements. Review of Systems Review of Systems: All systems reviewed & are unremarkable except as noted in Subjective Physical Exam Physical Exam: Constitutional: sitting up in bed considerably more comfortable appearing Eyes: EOMI, pupils equal and reactive bilaterally, no scleral icterus Cardiac: RRR, Pulm: CTA BL, no wheezes, rhonchi, crackles or rubs, moving air well throughout both lungs Abd: soft, nontender, Extremities: 2+ peripheral pulses, no edema Neuro: no focal deficits, moving all 4 limbs, A&Ox3 Results & Data Results & Data ([facility]) Vital Signs (Past 12 Hours) Vital Signs Temp Pulse Pulse Resp BP BP Pulse Ox 08/03/20 07:19 36.5 C 57 L 16 124/79 96 08/03/20 04:06 36.8 C 76 16 118/69 98 08/03/20 03:17 36.8 C 76 16 118/69 98 08/03/20 03:15 36.8 C 70 16 103/63 93 08/03/20 02:15 36.8 C 60 16 124/80 94 08/03/20 01:45 36.8 C 66 16 122/80 98 08/03/20 01:29 36.4 C L 66 20 123/83 98 08/03/20 01:16 37.1 C 68 16 120/79 97 08/03/20 00:48 36.9 C 79 16 120/80 98 08/02/20 23:48 36.9 C 79 16 122/78 99 08/02/20 22:48 36.8 C 67 16 119/77 97 08/02/20 22:18 37 C 71 16 117/71 99 08/02/20 22:03 37.1 C 71 18 112/73 99 08/02/20 21:45 36.9 C 75 18 120/80 98 Laboratory Results WBC 4.63 K/uL (4.8-10.8) L 08/03/20 07:21 RBC 3.01 M/uL (4.2-5.4) L 08/03/20 07:21 Hgb 11.0 g/dL (12.0-16.0) L 08/03/20 07:21 Hct 31.4 % (37-47) L 08/03/20 07:21 MCV 104.3 fL (80-100) H D 08/03/20 07:21 MCH 36.5 pg (25-34) H 08/03/20 07:21 MCHC 35.0 g/dL (32-36) 08/03/20 07:21 RDW Std Deviation 80.8 fL (36.4-46.3) H 08/03/20 07:21 RDW Coeff of Nando 21.4 % (11.5-14.5) H 08/03/20 07:21 Plt Count 331 K/uL (130-400) 08/03/20 07:21 MPV 9.4 fL (7.4-10.4) 08/03/20 07:21 Immature Gran % (Auto) 0.4 % 08/03/20 07:21 Neut % (Auto) 34.2 % 08/03/20 07:21 Lymph % (Auto) 56.8 % 08/03/20 07:21 Dewey % (Auto) 6.0 % 08/03/20 07:21 Eos % (Auto) 2.4 % 08/03/20 07:21 Baso % (Auto) 0.2 % 08/03/20 07:21 Reticulocyte % (Auto) 6.1 % (0.5-2.0) H 08/01/20 06:04 Neut # (Auto) 1.58 K/uL (1.4-6.5) 08/03/20 07:21 Lymph # (Auto) 2.63 K/uL (1.2-3.4) 08/03/20 07:21 Dewey # (Auto) 0.28 K/uL (0.11-0.59) 08/03/20 07:21 Eos # (Auto) 0.11 K/uL (0-0.5) 08/03/20 07:21 Baso # (Auto) 0.01 K/uL (0-0.2) 08/03/20 07:21 Reticulocyte # 0.13 10^6/uL (0.02-0.10) H 08/01/20 06:04 Immature Gran # (Auto) 0.02 K/uL (0.00-0.02) 08/03/20 07:21 Absolute Nucleated RBC 0.32 K/uL (0-0) H 08/03/20 07:21 Nucleated RBC % (auto) 6.8 % 08/03/20 07:21 Polychromasia 1+ 08/03/20 07:21 Anisocytosis Present 08/03/20 07:21 Macrocytosis Present 08/02/20 07:50 Pappenheimer Bodies 1+ 08/03/20 07:21 Sickle Cells Occasional 08/03/20 07:21 Target Cells 1+ 08/03/20 07:21 Ovalocytes 1+ 08/03/20 07:21 [place] Bodies 1+ 08/03/20 07:21 PT 10.5 Seconds (9.0-12.0) 07/26/20 00:43 INR 1.0 (0.9-1.1) 07/26/20 00:43 APTT 21.3 Seconds (21.0-31.0) 07/26/20 00:43 PTT Ratio 0.8 07/26/20 00:43 Sodium 139 mmol/L (136-145) 08/03/20 07:21 Potassium 3.7 mmol/L (3.5-5.1) 08/03/20 07:21 Chloride 106 mmol/L (98-107) 08/03/20 07:21 Carbon Dioxide 27 mmol/L (21-32) 08/03/20 07:21 Anion Gap 6.0 (3-11) 08/03/20 07:21 BUN 9 mg/dl (7-18) 08/03/20 07:21 Creatinine 0.49 mg/dl (0.6-1.2) L 08/03/20 07:21 Est Cr Clr Drug Dosing 182.9 ml/min 08/03/20 07:21 Est GFR ( Amer) > 150.0 ml/min 08/03/20 07:21 Est GFR (Non-Af Amer) 138.3 ml/min 08/03/20 07:21 BUN/Creatinine Ratio 17.5 (10-20) 08/03/20 07:21 Glucose 86 mg/dl (70-99) 08/03/20 07:21 Calcium 9.1 mg/dl (8.5-10.1) 08/03/20 07:21 Total Bilirubin 1.2 mg/dl (0.2-1) H 08/02/20 07:50 Direct Bilirubin 0.3 mg/dl (0-0.2) H 08/01/20 06:04 AST 35 U/L (15-37) 08/02/20 07:50 ALT 39 U/L (12-78) 08/02/20 07:50 Alkaline Phosphatase 87 U/L (45-117) 08/02/20 07:50 Total Creatine Kinase 44 U/L (26-192) 08/01/20 06:04 Troponin I < 0.015 ng/ml (0-0.045) 08/01/20 06:04 Total Protein 7.3 gm/dl (6.4-8.2) 08/02/20 07:50 Albumin 3.4 gm/dl (3.4-5.0) 08/02/20 07:50 Globulin 3.9 gm/dl (2.5-4.0) 08/02/20 07:50 Albumin/Globulin Ratio 0.9 (0.9-2) 08/02/20 07:50 HCG, Qual Negative (Negative) 07/26/20 00:44 COVID-19 Eval Order Covid19 at [facility] 07/26/20 01:35 SARS-CoV-2 (PCR) NEGATIVE (Negative) 07/26/20 01:35 Blood Type B Positive 08/02/20 10:54 Antibody Screen NEGATIVE 08/02/20 10:54 Crossmatch See Detail 08/02/20 10:54 Impressions Gallbladder Ultrasound 08/01/20 08:52 ABDOMINAL ULTRASOUND, RIGHT UPPER QUADRANT HISTORY: elevated total bilirubin, right upper quadrant abdominal pain, sickle cell. COMPARISON: Abdominal ultrasound 07/04/2020. FINDINGS: Pancreas: The pancreas demonstrates a normal echotexture. Liver: Unremarkable. Gallbladder: No gallbladder wall thickening. A few small mobile echogenic foci measuring up to 4 mm. These likely represent small stones.. CBD: 4 mm. Right kidney: No hydronephrosis. IMPRESSION: 1. A few small gallstones. No gallbladder wall thickening. 2. Normal caliber common bile duct. ACT 112: Negative or not required by law. Electronically signed by: Cortes Fletcher M.D. 08/01/2020 10:26 AM Chest X-Ray 08/01/20 11:47 SINGLE VIEW CHEST CLINICAL HISTORY: Dyspnea. Atypical chest pain. FINDINGS: An AP, portable, upright chest radiograph is compared to study dated 07/26/2020. The cardiomediastinal silhouette is top normal for projection. The lungs and pleural spaces are clear. No pneumothorax is seen. The bony thorax is grossly intact. IMPRESSION: No active disease in the chest. ACT 112: Negative or not required by law. Electronically signed by: Richard Mcmahon M.D. 08/01/2020 1:55 PM Resident Activity Tracking Resident Involvement: Resident Care Provided Care Provided: Adult Hospital Medicine (1) Sickle cell anemia Sickle-cell associated disorders: with unspecified crisis Qualified Code(s): D57.00 - Hb-SS disease with crisis, unspecified (2) Depression Active/Remission status: currently active Depression Type: major depressive disorder Major depression episode severity: severe Major depression recurrence: recurrent Psychotic features: without psychotic features Qualified Code(s): F33.2 - Major depressive disorder, recurrent severe without psychotic features (3) GERD (gastroesophageal reflux disease) Esophagitis presence: esophagitis presence not specified Qualified Code(s): K21.9 - Gastro-esophageal reflux disease without esophagitis
[2020-08-03] MEDS: ENOXAPARIN INJ 30 MG/0.3 ML SYR SQ SCH ×2 (09:39→09:55)
[2020-08-03] MEDS: DICLOFENAC SOD 1% GEL 100 GM TUBE EXT SCH ×6 (09:40→21:44)
[2020-08-03] MEDS: POLYETHYLENE (MIRALAX) 17 GM PACK PO SCH (09:40)
[2020-08-03] MEDS: SENNA 8.6 MG TAB PO SCH (09:40)
[2020-08-03] MEDS: busPIRone 15 MG TAB PO SCH ×3 (09:41→21:38)
[2020-08-03] MEDS: HYDROXYUREA 500 MG CAP PO SCH ×2 (09:41→21:40)
[2020-08-03] MEDS: oxyCODONE/APAP 7.5/325MG TAB PO SCH (09:53)
[2020-08-03] MEDS: PREGABALIN 150 MG CAP PO SCH ×2 (09:53→21:41)
[2020-08-03] MEDS: MoRPHine SULFATE 4 MG/ML 1 ML CARP\\VIAL IV PRN ×4 (16:02→22:18)
[2020-08-03] MEDS: FOLIC ACID 1 MG TAB PO SCH (21:39)
[2020-08-03] MEDS: DULoxetine HCL 60 MG CAP PO SCH (21:39)
[2020-08-03] MEDS: PANTOprazole 40 MG TAB PO SCH (21:40)
[2020-08-03] MEDS: oxyCODONE HCL IR 5 MG TAB (IMMEDIATE RELEASE) PO SCH (21:40)
[2020-08-04] MEDS: SODIUM CHLORIDE 0.45 % 1,000 ML IV SCH ×2 (00:26→13:13)
[2020-08-04] MEDS: MoRPHine SULFATE 4 MG/ML 1 ML CARP\\VIAL IV PRN ×8 (00:26→23:24)
[2020-08-04 06:28] LABS: Basophils # (auto) 0.01 K/uL (0-0.2); Basophils % (auto) 0.2 %; Eosinophils # (auto) 0.13 K/uL (0-0.5); Eosinophils % (auto) 2.7 %; Hematocrit (blood only) 32.1 % (37-47); Hemoglobin 11.3 g/dL (12.0-16.0); Immature Granulocytes # (auto) 0.03 K/uL (0.00-0.02); Immature Granulocytes % (auto) 0.6 %; Lymphocytes # (auto) 2.29 K/uL (1.2-3.4); Lymphocytes % (auto) 47.8 %; Mean Corpuscular Hgb Conc 35.2 g/dL (32-36); Mean Corpuscular Volume 105.2 fL (80-100); Mean Platelet Volume 9.5 fL (7.4-10.4); Monocytes # (auto) 0.25 K/uL (0.11-0.59); Monocytes % (auto) 5.2 %; Neutrophils # (auto) 2.08 K/uL (1.4-6.5); Neutrophils % (auto) 43.5 %; Nucleated RBC # (auto) 0.29 K/uL (0-0); Nucleated RBC % (auto) 6.1 %; Platelet Count 324 K/uL (130-400); RDW Coefficient of Variation 21.3 % (11.5-14.5); RDW Standard Deviation 81.1 fL (36.4-46.3); Red Blood Count 3.05 M/uL (4.2-5.4); White Blood Count 4.79 K/uL (4.8-10.8)
[2020-08-04 06:58] LABS: Anisocytosis Present; Target Cells 1+
[2020-08-04 07:02] LABS: BUN Creatinine Ratio 20.8 (10-20); Blood Urea Nitrogen 9 mg/dl (7-18); Calcium 8.9 mg/dl (8.5-10.1); Carbon Dioxide 29 mmol/L (21-32); Chloride 102 mmol/L (98-107); Creatinine Clr Calc Pharmacy 199.2 ml/min; Est GFR (African American) > 150.0 ml/min; Est GFR (Non-African American) 142.2 ml/min; Glucose 114 mg/dl (70-99); Potassium 3.6 mmol/L (3.5-5.1); Sodium 139 mmol/L (136-145)
[2020-08-04] MEDS: busPIRone 15 MG TAB PO SCH ×3 (09:38→22:16)
[2020-08-04] MEDS: DICLOFENAC SOD 1% GEL 100 GM TUBE EXT SCH ×4 (09:38→23:26)
[2020-08-04] MEDS: ENOXAPARIN INJ 30 MG/0.3 ML SYR SQ SCH (09:38)
[2020-08-04] MEDS: HYDROXYUREA 500 MG CAP PO SCH ×2 (09:39→22:18)
[2020-08-04] MEDS: SENNA 8.6 MG TAB PO SCH (09:39)
[2020-08-04] MEDS: POLYETHYLENE (MIRALAX) 17 GM PACK PO SCH (09:39)
[2020-08-04] MEDS: PREGABALIN 150 MG CAP PO SCH ×2 (09:42→22:11)
[2020-08-04] MEDS: oxyCODONE HCL IR 5 MG TAB (IMMEDIATE RELEASE) PO SCH ×3 (09:42→22:10)
--- NOTE | 2020-08-04 11:15 | Hospitalist Progress Note ---
Date of Service August 04, 2020 Assessment & Plan (1) Vaso-occlusive sickle cell crisis: 20yo female with SSA presenting with acute pain crisis. Patient is afebrile, HD stable. Mild chest pain. Complaining of diffuse body pain. No neurological compromise. Sickle cell crisis: resolved - s/p 2u pRBC transfusion SpO2 > 90% on room air Continue folic acid, hydroxyurea PO Incentive spirometry Chronic Pain, ongoing Continue lyrica 150mg BID Continue duloxetine - Pain control: - Oxycodone 10 mg TID sched - Morphine 4mg IV Q2H PRN - Toradol 10 mg IV Q6H PRN - Bowel regimen - Scheduled miralax, senna daily - PRN miralax, docusate GERD Chronic, well-controlled Continue protonix PO Borderline PD with Depression Chronic, well-controlled at this time per patient - following with Dr. Alberto outpatient Buspar 15 TID - plan to initiate DBT with outpatient psych services Sleep disturbance/Insomnia - chronic. No improvement with trazodone, doxepin, melatonin. - June trial benadryl 12.5mg PO qHS PRN FEN: regular diet Code status: full code DVT ppx: lovenox 30 sq Isolation: none Consults: none Dispo: med/surg (2) Sickle cell anemia: (3) GERD (gastroesophageal reflux disease): (4) Depression: Admission and Anticipated Discharge Date Admission Date: July 26, 2020 Supervising Physician Co-Signing Physician Notes Patient seen and examined with PGY-3, Dr. Cunningham. Agree with history, exam findings, assessment and plan of care as outlined. In brief, James is a 20 year old female, know to our service, admitted with sickle cell vaso-occlusive crisis. She continues to have pain. She is using oxycodone 10mg TID and morphine 4mg q2h. Morphine does help with pain in the chest, back, legs/hips. Hemoglobin has been stable. She does have prn oxycodone as well, but has not been receiving this. Overall, slowly improving from a pain control stand point. Dispo: pending clinical improvement. Subjective Seen at bedside this morning. Pt appears somewhat uncomfortable and tired, but in no acute distress. Pt reports her pain was is normally a 5/10 on a normal good home day, currently 7-8/10 and 'not doing well.' Today. Diffuse pain, some in abdomen and R upper leg but mostly all over. No shortness of breath, difficulty breathing, palpitations, syncope, presyncope. Endorses fatigue and poor sleep, denies sedation/sleepiness from medications. Review of Systems Review of Systems: All systems reviewed & are unremarkable except as noted in HPI & below Physical Exam Physical Exam: General: A&Ox3. NAD. Cooperative. HEENT: Atraumatic, normocephalic. Pulm: CTAB A&P. -wheezes, -rales, -rhonchi. Symmetrical chest rise. No increase work of breathing. No respiratory distress. Cardiac: RRR, -mrg. Radial pulses intact and symmetrical. Abdominal: Mild diffuse tenderness, no rebound, nonrigid, no guarding . BS present. Results & Data Results & Data ([facility]) Vital Signs (Past 12 Hours) Vital Signs Temp Pulse Resp BP Pulse Ox 08/04/20 08:03 36.9 C 67 16 125/82 98 Resident Activity Tracking Resident Involvement: Resident Care Provided Care Provided: Adult [facility] Medicine (1) Sickle cell anemia Sickle-cell associated disorders: with unspecified crisis Qualified Code(s): D57.00 - Hb-SS disease with crisis, unspecified (2) Depression Active/Remission status: currently active Depression Type: major depressive disorder Major depression episode severity: severe Major depression recurrence: recurrent Psychotic features: without psychotic features Qualified Code(s): F33.2 - Major depressive disorder, recurrent severe without psychotic features (3) GERD (gastroesophageal reflux disease) Esophagitis presence: esophagitis presence not specified Qualified Code(s): K21.9 - Gastro-esophageal reflux disease without esophagitis
[2020-08-04] MEDS: DULoxetine HCL 60 MG CAP PO SCH (22:17)
[2020-08-04] MEDS: FOLIC ACID 1 MG TAB PO SCH (22:18)
[2020-08-04] MEDS: PANTOprazole 40 MG TAB PO SCH (22:19)
[2020-08-05] MEDS: SODIUM CHLORIDE 0.45 % 1,000 ML IV SCH ×3 (00:36→19:05)
[2020-08-05] MEDS: MoRPHine SULFATE 4 MG/ML 1 ML CARP\\VIAL IV PRN ×7 (01:36→23:09)
[2020-08-05] MEDS: DOXEPIN HCL 25 MG CAPSULE PO PRN (03:51)
[2020-08-05 09:06] LABS: Basophils # (auto) 0.04 K/uL (0-0.2); Basophils % (auto) 0.8 %; Eosinophils # (auto) 0.12 K/uL (0-0.5); Eosinophils % (auto) 2.3 %; Hematocrit (blood only) 33.3 % (37-47); Hemoglobin 11.8 g/dL (12.0-16.0); Immature Granulocytes # (auto) 0.01 K/uL (0.00-0.02); Immature Granulocytes % (auto) 0.2 %; Lymphocytes # (auto) 2.29 K/uL (1.2-3.4); Mean Corpuscular Hemoglobin 37.7 pg (25-34); Mean Corpuscular Hgb Conc 35.4 g/dL (32-36); Mean Corpuscular Volume 106.4 fL (80-100); Mean Platelet Volume 9.3 fL (7.4-10.4); Monocytes % (auto) 5.6 %; Neutrophils # (auto) 2.56 K/uL (1.4-6.5); Neutrophils % (auto) 48.1 %; Nucleated RBC % (auto) 5.6 %; Platelet Count 334 K/uL (130-400); Red Blood Count 3.13 M/uL (4.2-5.4); White Blood Count 5.32 K/uL (4.8-10.8)
[2020-08-05] MEDS: POLYETHYLENE (MIRALAX) 17 GM PACK PO SCH (09:12)
[2020-08-05] MEDS: SENNA 8.6 MG TAB PO SCH (09:13)
[2020-08-05] MEDS: DICLOFENAC SOD 1% GEL 100 GM TUBE EXT SCH ×4 (09:13→21:59)
[2020-08-05] MEDS: busPIRone 15 MG TAB PO SCH ×3 (09:13→21:58)
[2020-08-05] MEDS: HYDROXYUREA 500 MG CAP PO SCH ×2 (09:13→21:59)
[2020-08-05] MEDS: oxyCODONE HCL IR 5 MG TAB (IMMEDIATE RELEASE) PO SCH ×3 (09:13→22:03)
[2020-08-05] MEDS: ENOXAPARIN INJ 30 MG/0.3 ML SYR SQ SCH (09:14)
[2020-08-05] MEDS: PREGABALIN 150 MG CAP PO SCH ×2 (09:16→22:03)
[2020-08-05 09:23] LABS: Anisocytosis Present; Ovalocytes 1+; Target Cells 2+
[2020-08-05 09:38] LABS: BUN Creatinine Ratio 15.8 (10-20); Blood Urea Nitrogen 8 mg/dl (7-18); Calcium 9.1 mg/dl (8.5-10.1); Carbon Dioxide 29 mmol/L (21-32); Chloride 103 mmol/L (98-107); Creatinine Clr Calc Pharmacy 182.9 ml/min; Est GFR (African American) > 150.0 ml/min; Est GFR (Non-African American) 138.3 ml/min; Glucose 81 mg/dl (70-99); Potassium 3.6 mmol/L (3.5-5.1); Sodium 137 mmol/L (136-145)
--- NOTE | 2020-08-05 16:32 | Hospitalist Progress Note ---
Date of Service August 05, 2020 Assessment & Plan (1) Vaso-occlusive sickle cell crisis: 20yo female with SSA presenting with acute pain crisis. Patient is afebrile, HD stable. Mild chest pain. Complaining of diffuse body pain. No neurological compromise. Sickle cell crisis: resolved - s/p 2u pRBC transfusion SpO2 > 90% on room air Continue folic acid, hydroxyurea PO Incentive spirometry Chronic Pain, ongoing Continue lyrica 150mg BID Continue duloxetine - Pain control: - Oxycodone 10 mg TID sched - Morphine 4mg IV Q2H PRN - Toradol 10 mg IV Q6H PRN - Bowel regimen - Scheduled miralax, senna daily - PRN miralax, docusate GERD Chronic, well-controlled Continue protonix PO Borderline PD with Depression Chronic, well-controlled at this time per patient - following with Dr. Alberto outpatient Buspar 15 TID - plan to initiate DBT with outpatient psych services Sleep disturbance/Insomnia - chronic. No improvement with trazodone, doxepin, melatonin. - June trial benadryl 12.5mg PO qHS PRN Dispo: Keep admitted for pain control, will try to space out IV pain medication and eventually move over to oral regimen. FEN: regular diet DVT ppx: lovenox 30 sq (2) Sickle cell anemia: (3) GERD (gastroesophageal reflux disease): (4) Depression: Admission and Anticipated Discharge Date Admission Date: July 26, 2020 Supervising Physician Co-Signing Physician Notes Patient seen and examined independently of PGY-3, Dr. Apodaca. Agree with history, exam findings, assessment and plan of care as outlined. In brief, James is a 20 year old female, know to our service, admitted with sickle cell vaso-occlusive crisis. She continues to have pain, but feels that she is doing a little better compared to yesterday. She is using oxycodone 10mg TID and morphine 4mg q2h. Morphine does help with pain in the chest, back, legs/hips. Hemoglobin has been stable. She does have prn oxycodone as well, but has not been receiving this. Overall, slowly improving from a pain control stand point. Dispo: pending clinical improvement. Subjective James is pretty tired today. She does endorse feeling somewhat better than yesterday. Pain primarily located in her spine and pelvis. Deep breathing exacerbates her spine pain. Review of Systems Review of Systems: All systems reviewed & are unremarkable except as noted in HPI & below Physical Exam 2 Physical Exam: General: A&Ox3. NAD. Cooperative. HEENT: Atraumatic, normocephalic. Pulm: CTAB A&P. -wheezes, -rales, -rhonchi. Symmetrical chest rise. No increase work of breathing. No respiratory distress. Cardiac: RRR, -mrg. Radial pulses intact and symmetrical. Abdominal: Mild diffuse tenderness, no rebound, nonrigid, no guarding . BS present. Results & Data Results & Data ([facility]) Vital Signs (Past 12 Hours) Vital Signs Temp Pulse Resp BP Pulse Ox 08/05/20 07:33 37.0 C 70 18 113/75 98 08/04/20 22:52 36.4 C L 70 16 121/72 96 Resident Activity Tracking Resident Involvement: Resident Care Provided Care Provided: Adult Hospital Medicine (1) Sickle cell anemia Sickle-cell associated disorders: with unspecified crisis Qualified Code(s): D57.00 - Hb-SS disease with crisis, unspecified (2) Depression Active/Remission status: currently active Depression Type: major depressive disorder Major depression episode severity: severe Major depression recurrence: recurrent Psychotic features: without psychotic features Qualified Code(s): F33.2 - Major depressive disorder, recurrent severe without psychotic features (3) GERD (gastroesophageal reflux disease) Esophagitis presence: esophagitis presence not specified Qualified Code(s): K21.9 - Gastro-esophageal reflux disease without esophagitis
[2020-08-05] MEDS: FOLIC ACID 1 MG TAB PO SCH (21:59)
[2020-08-05] MEDS: DULoxetine HCL 60 MG CAP PO SCH (21:59)
[2020-08-05] MEDS: PANTOprazole 40 MG TAB PO SCH (22:03)
[2020-08-06] MEDS: MoRPHine SULFATE 4 MG/ML 1 ML CARP\\VIAL IV PRN ×6 (01:47→22:34)
[2020-08-06] MEDS: DOXEPIN HCL 25 MG CAPSULE PO PRN (02:18)
[2020-08-06] MEDS: SODIUM CHLORIDE 0.45 % 1,000 ML IV SCH ×2 (04:49→16:03)
[2020-08-06] MEDS: ENOXAPARIN INJ 30 MG/0.3 ML SYR SQ SCH (10:31)
[2020-08-06] MEDS: HYDROXYUREA 500 MG CAP PO SCH ×2 (10:33→21:12)
[2020-08-06] MEDS: SENNA 8.6 MG TAB PO SCH (10:33)
[2020-08-06] MEDS: DICLOFENAC SOD 1% GEL 100 GM TUBE EXT SCH ×4 (10:33→21:13)
[2020-08-06] MEDS: POLYETHYLENE (MIRALAX) 17 GM PACK PO SCH (10:33)
[2020-08-06] MEDS: PREGABALIN 150 MG CAP PO SCH ×2 (10:33→21:11)
[2020-08-06] MEDS: busPIRone 15 MG TAB PO SCH ×3 (10:33→21:12)
[2020-08-06] MEDS: oxyCODONE HCL IR 5 MG TAB (IMMEDIATE RELEASE) PO SCH ×3 (10:33→21:11)
--- NOTE | 2020-08-06 12:35 | Hospitalist Progress Note ---
Date of Service August 06, 2020 Assessment & Plan (1) Vaso-occlusive sickle cell crisis: 20yo female with SSA presenting with acute pain crisis. Patient is afebrile, HD stable. Mild chest pain. Complaining of diffuse body pain. No neurological compromise. Sickle cell crisis: resolved - s/p 2u pRBC transfusion - Hgb>11 SpO2 > 90% on room air Continue folic acid, hydroxyurea PO Incentive spirometry Chronic Pain, ongoing Continue lyrica 150mg BID Continue duloxetine - Pain control: - Oxycodone 10 mg TID sched - Morphine 4mg IV Q2H PRN - Toradol 10 mg IV Q6H PRN - Bowel regimen - Scheduled miralax, senna daily - PRN miralax, docusate GERD Chronic, well-controlled Continue protonix PO Borderline PD with Depression Chronic, well-controlled at this time per patient - following with Dr. Alberto outpatient Buspar 15 TID - plan to initiate DBT with outpatient psych services Sleep disturbance/Insomnia - chronic. No improvement with trazodone, doxepin, melatonin. - June trial benadryl 12.5mg PO qHS PRN Dispo: Keep admitted for pain control, will try to space out IV pain medication and eventually move over to oral regimen. FEN: regular diet DVT ppx: lovenox 30 sq (2) Sickle cell anemia: (3) GERD (gastroesophageal reflux disease): (4) Depression: Admission and Anticipated Discharge Date Admission Date: July 26, 2020 Supervising Physician Co-Signing Physician Notes Patient seen and examined independently of PGY-3, Dr. Apodaca. Agree with history, exam findings, assessment and plan of care as outlined. In brief, James is a 20 year old female, know to our service, admitted with sickle cell vaso-occlusive crisis. She continues to have pain, but feels that she is doing a little better compared to yesterday. She is using oxycodone 10mg TID and morphine 4mg q2h. Morphine does help with pain in the chest, back, legs/hips. Hemoglobin has been stable. She is starting to space out the IV morphine to every 2 1/2 to 3 hours. She prefers to be able to space out the medication as she sees fit rather than us changing the orders too quickly. She had a bowel movement but does report some mild straining and pain. She uses colace and miralax. At home, she will use mag citrate if she starts to feel a bit more constipated. Overall, slowly improving from a pain control stand point. Add mag citrate x1 dose that she is able to ask for if she would like to use it. Dispo: pending clinical improvement. Subjective James is resting comfortably today, tells me she is in pain but that it is definitely better than she was yesterday pain in all areas still but just reduced. No other concerns at present but says she will let me know. Review of Systems Review of Systems: All systems reviewed & are unremarkable except as noted in HPI & below Physical Exam Physical Exam: General: A&Ox3. NAD. Cooperative. HEENT: Atraumatic, normocephalic. Pulm: CTAB A&P. -wheezes, -rales, -rhonchi. Symmetrical chest rise. No increase work of breathing. No respiratory distress. Cardiac: RRR, -mrg. Radial pulses intact and symmetrical. Abdominal: Mild diffuse tenderness, no rebound, nonrigid, no guarding . BS present. Results & Data Results & Data ([facility]) Vital Signs (Past 12 Hours) Vital Signs Temp Pulse Resp BP Pulse Ox 08/06/20 06:58 36.8 C 70 18 112/72 97 Resident Activity Tracking Resident Involvement: Resident Care Provided Care Provided: Adult Hospital Medicine (1) Sickle cell anemia Sickle-cell associated disorders: with unspecified crisis Qualified Code(s): D57.00 - Hb-SS disease with crisis, unspecified (2) Depression Active/Remission status: currently active Depression Type: major depressive disorder Major depression episode severity: severe Major depression recurrence: recurrent Psychotic features: without psychotic features Qualified Code(s): F33.2 - Major depressive disorder, recurrent severe without psychotic features (3) GERD (gastroesophageal reflux disease) Esophagitis presence: esophagitis presence not specified Qualified Code(s): K21.9 - Gastro-esophageal reflux disease without esophagitis
[2020-08-06] MEDS ORDERED: MAGNESIUM CITRATE 296 ML/BTL PO ONE (14:38)
[2020-08-06] MEDS: PANTOprazole 40 MG TAB PO SCH (21:11)
[2020-08-06] MEDS: FOLIC ACID 1 MG TAB PO SCH (21:11)
[2020-08-06] MEDS: DULoxetine HCL 60 MG CAP PO SCH (21:11)
[2020-08-07] MEDS: DOXEPIN HCL 25 MG CAPSULE PO PRN (00:25)
[2020-08-07] MEDS: MoRPHine SULFATE 4 MG/ML 1 ML CARP\\VIAL IV PRN ×6 (00:27→22:53)
[2020-08-07] MEDS: SODIUM CHLORIDE 0.45 % 1,000 ML IV SCH ×3 (02:26→19:20)
[2020-08-07 07:50] LABS: Hematocrit (blood only) 31.2 % (37-47); Mean Corpuscular Hemoglobin 37.7 pg (25-34); Mean Corpuscular Hgb Conc 35.3 g/dL (32-36); Mean Corpuscular Volume 106.8 fL (80-100); Mean Platelet Volume 9.4 fL (7.4-10.4); Nucleated RBC # (auto) 0.15 K/uL (0-0); Nucleated RBC % (auto) 2.8 %; Platelet Count 319 K/uL (130-400); RDW Coefficient of Variation 20.2 % (11.5-14.5); RDW Standard Deviation 78.4 fL (36.4-46.3); Red Blood Count 2.92 M/uL (4.2-5.4)
[2020-08-07 08:09] LABS: Anisocytosis Present; Basophils # (auto) 0.02 K/uL (0-0.2); Basophils % (auto) 0.4 %; Eosinophils # (auto) 0.14 K/uL (0-0.5); Eosinophils % (auto) 2.6 %; Howell-Jolly Bodies 1+; Immature Granulocytes # (auto) 0.02 K/uL (0.00-0.02); Immature Granulocytes % (auto) 0.4 %; Lymphocytes # (auto) 2.71 K/uL (1.2-3.4); Lymphocytes % (auto) 50.2 %; Monocytes # (auto) 0.31 K/uL (0.11-0.59); Monocytes % (auto) 5.7 %; Neutrophils % (auto) 40.7 %; Target Cells 1+
[2020-08-07] MEDS: ENOXAPARIN INJ 30 MG/0.3 ML SYR SQ SCH ×2 (09:30→09:44)
[2020-08-07] MEDS: HYDROXYUREA 500 MG CAP PO SCH ×2 (09:30→21:06)
[2020-08-07] MEDS: SENNA 8.6 MG TAB PO SCH (09:30)
[2020-08-07] MEDS: busPIRone 15 MG TAB PO SCH ×3 (09:30→21:04)
[2020-08-07] MEDS: POLYETHYLENE (MIRALAX) 17 GM PACK PO SCH (09:31)
[2020-08-07] MEDS: DICLOFENAC SOD 1% GEL 100 GM TUBE EXT SCH ×4 (09:31→21:16)
[2020-08-07] MEDS: oxyCODONE HCL IR 5 MG TAB (IMMEDIATE RELEASE) PO SCH ×3 (09:38→21:03)
[2020-08-07] MEDS: PREGABALIN 150 MG CAP PO SCH ×2 (09:38→21:03)
--- NOTE | 2020-08-07 17:09 | Medical Student Progress Note ---
Date of Service August 07, 2020 Assessment & Plan (1) Vaso-occlusive sickle cell crisis: Patient received 2units pRBC transfusion. Hgb today 11 SpO2 97% on room air Continue folic acid, hydroxyurea PO Incentive spirometry (2) Chronic pain: Continue lyrica 150mg BID Continue duloxetine - Pain control: - Oxycodone 10 mg TID sched - Morphine 4mg IV Q2H PRN - Toradol 10 mg IV Q6H PRN - Bowel regimen - Scheduled miralax, senna daily - PRN miralax, docusate -Sleep disturbance/Insomnia Chronic, likely exacerbated by pain level. No improvement with trazodone, doxepin, melatonin. May trial benadryl 12.5mg PO qHS PRN (3) Borderline personality disorder: Chronic, patient considers to be well-controlled at this time. Following with Dr. Remy holley. Patient has good relationship and plans to initiate DBT with outpatient psych services. Buspar 15 TID (4) GERD (gastroesophageal reflux disease): Chronic, well-controlled Continue protonix PO Esophagitis presence: esophagitis presence not specified Qualified Code(s): K21.9 - Gastro-esophageal reflux disease without esophagitis Admission and Anticipated Discharge Date Admission Date: July 26, 2020 Supervising Attestation I personally examined the patient and verified all amaro points of history and exam, discussed case, and agree with decision making with Lyssa Coats MS2 Pain slowly improvingestrellae does feel like she is making progress, just quite slowly. No new complaints otherwiseshe did have a little bit of calf tenderness to student exam earlier, but she notes she has not really had any notable calf tenderness with walkingway more in her knees and hips. vitals noted nad heent nc at mmm breathing unlabored no accessory muscles good effort skin no rashes no pallor or icterus. She has very mild right calf tenderness compared to the left certainly not exquisite or very tender at all, and there is no edema or asymmetric findings whatsoever. sickle cell w vasocclusive (and probably complicated multifactorial) pain -sickle vasocclusive pain, also possibly narcotics hyperalgesia, ?other chronic pain physiology -acute management for now - morphine/fluids/time -showing slow improvement --->work towards sickle clinic as outpt, pain management eval, possibly pain psychology. trial of pregabalin underway ---> Hopefully home soon otherwise as above Subjective 20 y/o woman with a history of sickle cell and borderline personality disorder admitted 12 days ago in acute pain crisis. Patient is afebrile, hemodynamically stable, no neurologic compromise. This morning the patient continues to be in severe pain, but she says that it is improved slightly from yesterday. She believes that her pain has slowly improved over the course of her hospital stay, and wants to continue with the current course. Pain is concentrated in her hips and chest. Review of Systems Review of Systems: All systems reviewed & are unremarkable except as noted in HPI & below Physical Exam Physical Exam: Patient was asleep, but was easily roused. She had not yet had breakfast. She appears to be in severe pain, holds herself very still, and frequently closes her eyes during our conversation. She is cooperative. Later this afternoon her pain level was under better control, and she was able to sit up and converse. Constitutional: Well developed and well nourished; in pain ENMT: External ear and nose normal, oropharynx normal Respiratory: Normal respiratory effort; no respiratory distress and no labored breathing Auscultation limited to the front and sides due to patient position. Normal breath sounds. Cardiovascular: Rate/Rhythm: regular rate and regular rhythm Heart Sounds: no click, no gallop, no murmur and no cardiac rub Gastrointestinal (Abdomen): Inspection/Auscultation: abdomen not distended Percussion/Palpation: abdomen soft; abdomen nontender, no guarding and no hepatosplenomegaly. Musculoskeletal: Calf tenderness appreciated on the left side. No swelling, no temperature change. Results & Data ([facility]) Vital Signs (Past 12 Hours) Vital Signs Temp Pulse Resp BP Pulse Ox 08/07/20 14:59 36.3 C L 90 16 93/55 L 96 08/07/20 07:51 36.8 C 71 18 100/62 97
--- NOTE | 2020-08-07 18:53 | Billing Data ---
Date of Service August 07, 2020 Coding Level of Care Code 48199 Subseq Hosp Care Lvl 3
[2020-08-07] MEDS: DULoxetine HCL 60 MG CAP PO SCH (21:04)
[2020-08-07] MEDS: FOLIC ACID 1 MG TAB PO SCH (21:05)
[2020-08-07] MEDS: PANTOprazole 40 MG TAB PO SCH (21:06)
[2020-08-08] MEDS: MoRPHine SULFATE 4 MG/ML 1 ML CARP\\VIAL IV PRN ×8 (02:20→22:17)
[2020-08-08] MEDS: DOXEPIN HCL 25 MG CAPSULE PO PRN (03:56)
[2020-08-08 07:03] LABS: Basophils # (auto) 0.02 K/uL (0-0.2); Basophils % (auto) 0.4 %; Eosinophils # (auto) 0.14 K/uL (0-0.5); Eosinophils % (auto) 2.7 %; Hematocrit (blood only) 32.1 % (37-47); Hemoglobin 11.3 g/dL (12.0-16.0); Immature Granulocytes # (auto) 0.01 K/uL (0.00-0.02); Immature Granulocytes % (auto) 0.2 %; Lymphocytes # (auto) 2.44 K/uL (1.2-3.4); Lymphocytes % (auto) 46.5 %; Mean Corpuscular Hemoglobin 37.5 pg (25-34); Mean Corpuscular Hgb Conc 35.2 g/dL (32-36); Mean Corpuscular Volume 106.6 fL (80-100); Mean Platelet Volume 9.6 fL (7.4-10.4); Monocytes # (auto) 0.23 K/uL (0.11-0.59); Monocytes % (auto) 4.4 %; Neutrophils # (auto) 2.41 K/uL (1.4-6.5); Neutrophils % (auto) 45.8 %; Nucleated RBC % (auto) 1.8 %; Platelet Count 313 K/uL (130-400); RDW Standard Deviation 78.1 fL (36.4-46.3); Red Blood Count 3.01 M/uL (4.2-5.4); White Blood Count 5.25 K/uL (4.8-10.8)
[2020-08-08 07:23] LABS: Anisocytosis Present; Target Cells 1+
[2020-08-08] MEDS: SODIUM CHLORIDE 0.45 % 1,000 ML IV SCH ×2 (07:45→17:54)
[2020-08-08] MEDS: busPIRone 15 MG TAB PO SCH ×3 (09:03→20:06)
[2020-08-08] MEDS: HYDROXYUREA 500 MG CAP PO SCH ×2 (09:03→20:07)
[2020-08-08] MEDS: oxyCODONE HCL IR 5 MG TAB (IMMEDIATE RELEASE) PO SCH ×3 (09:03→20:13)
[2020-08-08] MEDS: PREGABALIN 150 MG CAP PO SCH ×2 (09:03→20:14)
[2020-08-08] MEDS: POLYETHYLENE (MIRALAX) 17 GM PACK PO SCH (09:04)
[2020-08-08] MEDS: SENNA 8.6 MG TAB PO SCH (09:04)
[2020-08-08] MEDS: DICLOFENAC SOD 1% GEL 100 GM TUBE EXT SCH ×4 (09:04→20:07)
[2020-08-08] MEDS: ENOXAPARIN INJ 30 MG/0.3 ML SYR SQ SCH (09:04)
--- NOTE | 2020-08-08 17:40 | Medical Student Progress Note ---
Date of Service August 08, 2020 Assessment & Plan (1) Vaso-occlusive sickle cell crisis: Patient received 2units pRBC transfusion. Hgb today 11 SpO2 97% on room air Continue folic acid, hydroxyurea PO Incentive spirometry (2) Chronic pain: Continue lyrica 150mg BID Continue duloxetine - Pain control: - Oxycodone 10 mg TID sched - Morphine 4mg IV Q2H PRN - Toradol 10 mg IV Q6H PRN -Patient encouraged to walk around the halls and in the healing garden. - Bowel regimen - Scheduled miralax, senna daily - PRN miralax, docusate -Sleep disturbance/Insomnia Chronic, likely exacerbated by pain level. No improvement with trazodone, dox epin, melatonin. June trial benadryl 12.5mg PO qHS PRN (3) Borderline personality disorder: Chronic, patient considers to be well-controlled at this time. Following with Dr. Remy holley. Patient has good relationship and plans to initiate DBT with outpatient psych services. Buspar 15 TID (4) GERD (gastroesophageal reflux disease): Chronic, well-controlled Continue protonix PO Esophagitis presence: esophagitis presence not specified Qualified Code(s): K21.9 - Gastro-esophageal reflux disease without esophagitis Admission and Anticipated Discharge Date Admission Date: July 26, 2020 Supervising Attestation I personally examined the patient and verified all amaro points of history and exam, discussed case, and agree with decision making with Lyssa BurrisCoats MS2 Was able to space her morphine down a little bit morealthough she also notes that was because the doxepin really made her groggy. At the same time, she does feel that she is continuing to make progress, she feels she will hopefully build to start to walk the halls more soon. vitals noted nad heent nc at mmm breathing unlabored no accessory muscles good effort skin no rashes no pallor or icterus. No focal neuro deficits sickle cell w vasocclusive (and probably complicated multifactorial) pain -sickle vasocclusive pain, also possibly narcotics hyperalgesia, ?other chronic pain physiology -acute management for now - morphine/fluids/timestable to showing slow improvement --->work towards sickle clinic as outpt, pain management eval, possibly pain psychology. trial of pregabalin underway ---> Hopefully home soon (when she feels she could tolerate pain with p.o. pain control only) otherwise as above Subjective Patient was awake and, sitting up in bed. This morning she was able to space her morphine to once every 4 or 5 hours, although she is back to once every two hours this afternoon. She says this is her best day yet. She feels that the duloxetine has been sedating, but this does not bother her. She plans to get up and walk some this evening. Review of Systems Review of Systems: All systems reviewed & are unremarkable except as noted in HPI & below Physical Exam Physical Exam: Patient is alert and cooperative, and appears to be in less pain than when she was seen yesterday. Constitutional: Well developed and well nourished; in pain. ENMT: External ear and nose normal, oropharynx normal. Respiratory: Normal respiratory effort; no respiratory distress and no labored breathing. Cardiovascular: Rate/Rhythm: regular rate and regular rhythm Heart Sounds: no click, no gallop, no murmur and no cardiac rub Musculoskeletal: Calfs are less tender than yesterday, with pain concentrated in knees and hips. Left side is more painful than right. Results & Data ([facility]) Vital Signs (Past 12 Hours) Vital Signs Temp Pulse Resp BP BP Pulse Ox 08/08/20 15:28 37.0 C 109 H 18 113/70 98 08/08/20 06:33 36.8 C 68 15 95/56 L 95
--- NOTE | 2020-08-08 19:02 | Billing Data ---
Date of Service August 08, 2020 Coding Level of Care Code 14400 Subseq Hosp Care Lvl 3
[2020-08-08] MEDS: DULoxetine HCL 60 MG CAP PO SCH (20:06)
[2020-08-08] MEDS: FOLIC ACID 1 MG TAB PO SCH (20:07)
[2020-08-08] MEDS: PANTOprazole 40 MG TAB PO SCH (20:08)
[2020-08-09] MEDS: MoRPHine SULFATE 4 MG/ML 1 ML CARP\\VIAL IV PRN ×4 (00:19→10:40)
[2020-08-09] MEDS: DOXEPIN HCL 25 MG CAPSULE PO PRN (02:17)
[2020-08-09] MEDS: SODIUM CHLORIDE 0.45 % 1,000 ML IV SCH ×2 (04:17→14:55)
[2020-08-09] MEDS: busPIRone 15 MG TAB PO SCH ×3 (09:28→21:36)
[2020-08-09] MEDS: SENNA 8.6 MG TAB PO SCH (09:29)
[2020-08-09] MEDS: POLYETHYLENE (MIRALAX) 17 GM PACK PO SCH (09:29)
[2020-08-09] MEDS: DICLOFENAC SOD 1% GEL 100 GM TUBE EXT SCH ×4 (09:29→21:37)
[2020-08-09] MEDS: HYDROXYUREA 500 MG CAP PO SCH ×2 (09:30→21:36)
[2020-08-09] MEDS: ENOXAPARIN INJ 30 MG/0.3 ML SYR SQ SCH (09:30)
[2020-08-09] MEDS: oxyCODONE HCL IR 5 MG TAB (IMMEDIATE RELEASE) PO SCH ×3 (09:34→21:39)
[2020-08-09] MEDS: PREGABALIN 150 MG CAP PO SCH ×2 (09:34→21:39)
[2020-08-09] MEDS: MoRPHine SULFATE 10 MG/ML CARP/VIAL IV PRN ×5 (13:07→22:10)
--- NOTE | 2020-08-09 17:45 | Hospitalist Progress Note ---
Date of Service August 09, 2020 Assessment & Plan (1) Chronic pain: Patient is a 20 year old female well known to our service with PMHx Sickle Cell and Chronic pain, admitted for acute vaso-occlusive sickle cell crisis now resolved. Chronic Pain -Continue Lyrica 150mg BID -Continue Cymbalta -Pain control -Oxycodone 10mg TID PO scheduled -Increase Morphine 6mg Q2H IV PRN -Encouraged to continue movement -Voltaren PRN -Bowel Regiment with Sched miralax, senna daily in addition to PRN miralax, docusate Sleep Disturbance/Insomnia -Continue Trazodone, Doxepin, Melatonin BPD -Continue Buspar 15mg TID GERD -Continue Protonix Vaso-occlusive sickle cell crisis -S/P 2 units PRBC transfusion -Continue folic acid -Continue hydroxyurea -Continue incentive spirometry Dispo: M/S for pain control requiring IV morphine FEN: Reg diet, 1/2 NSS 100ml/hr DVT: Lovenox Code: Full (2) Sickle cell anemia: Admission and Anticipated Discharge Date Admission Date: July 26, 2020 Supervising Physician Co-Signing Physician Notes I personally examined the patient and verified all amaro points of history and exam, discussed case, and agree with decision making with Dr Mojica. Feeling worsepain worse. Pain worse with movement. Pain mostly in her back and hips and knees. On directed questioning, wonders if we could increase dose of pain medicines. Vitals noted, in general she is awake but appears in moderate degree of distress that is worse with movement. HEENT normocephalic atraumatic mucous membranes are moist. Breathing unlabored no accessory muscle use good effort. Skin shows no rashes no pallor or icterus. She appears visibly uncomfortable whenever she tries to move. sickle cell w vasocclusive (and probably complicated multifactorial) pain -sickle vasocclusive pain, also possibly narcotics hyperalgesia, ?other chronic pain physiology -acute management for now - morphine (pain worsening increase for now)/fluids/timestable to showing slow improvement --->work towards sickle clinic as outpt, pain management eval, possibly pain psychology. trial of pregabalin underway ---> Hopefully home soon (when she feels she could tolerate pain with p.o. pain control only) (with today being worse, I offered again to try to work for transfer to a sickle cell center if she would so desire.) otherwise as above Subjective Patient evaluated at the bedside. Overnight symptoms seemed to have worsened with over all pain. Patient was hoping to be able to wean off of IV morphine faster, but having difficulty. Denies any crushing chest pain, SOB, abdominal pain, NVD, fever, chills. Review of Systems Review of Systems: All systems reviewed & are unremarkable except as noted in Subjective Physical Exam Constitutional: WD/WN, vitals as above Neck: trachea midline, no thyromegaly Respiratory: normal respiratory effort, lungs clear to auscultation Cardiovascular: RRR, no murmur, no edema Extremities: no calf tenderness Gastrointestinal (Abdomen): normal bowel sounds, soft, nontender, no hepatosplenomegaly Musculoskeletal: no cyanosis or clubbing, extremities motor strength 5/5 Psychiatric: A+Ox3, euthymic affect Results & Data Results & Data ([facility]) Vital Signs (Past 12 Hours) Vital Signs Temp Pulse Resp BP BP Pulse Ox 08/09/20 16:23 36.7 C 103 H 18 112/71 98 08/09/20 07:23 36.6 C 76 16 106/69 96 Resident Activity Tracking Resident Involvement: Resident Care Provided Care Provided: Adult Hospital Medicine (1) Sickle cell anemia Sickle-cell associated disorders: with unspecified crisis Qualified Code(s): D57.00 - Hb-SS disease with crisis, unspecified
--- NOTE | 2020-08-09 19:45 | Billing Data ---
Date of Service August 09, 2020 Coding Level of Care Code 15504 Subseq Hosp Care Lvl 3
[2020-08-09] MEDS: DULoxetine HCL 60 MG CAP PO SCH (21:36)
[2020-08-09] MEDS: PANTOprazole 40 MG TAB PO SCH (21:36)
[2020-08-09] MEDS: FOLIC ACID 1 MG TAB PO SCH (21:36)
[2020-08-10] MEDS: MoRPHine SULFATE 10 MG/ML CARP/VIAL IV PRN ×3 (00:10→07:51)
[2020-08-10] MEDS: SODIUM CHLORIDE 0.45 % 1,000 ML IV SCH ×3 (00:12→19:54)
--- NOTE | 2020-08-10 02:43 | Communication Note ---
Date of Service: August 10, 2020 At 1:48 PM night team was contacted by nurse stating patient called him to bedside - her eyelids were twitching and her R arm was thrashing. Patient was on the phone with her sister at the time (phone was lying on the bed and mode was set to speaker). Nurse checked vitals and reported a HR of 70, BP of 105/70, O2 at 100% on RA. Nurse held the R arm above her head (to assess whether she had control over it) and he reported she did have complete control over the extremity (ie she never let the R arm fall onto her head). Sister then called nurse's station expressing concern that "something was not right," with James and requested staff go check on her. Patient then became upset with nurse - she overheard him telling other staff members that she was not demonstrating any signs of seizure -like activity during this event. Patient became upset, demanded to speak with charge nurse, to whom she requested to see a patient advocate and the on-call doctor. Nursing also denied any demonstration of post-ictal activity. 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 During these episodes she says she can hear and understand everything being said to her, but she cannot respond, as she goes "unconscious." She said she has felt consistently disrespected by nursing staff during this hospital stay. She feels as though staff does not believe she is in pain and is skeptical to administer her opioid pain medication. I asked her what typically helps her when she has one of these episodes - and she states "nothing, they just have to pass on their own." I asked if I could do anything else to help her at this point and she requested to speak to a patient advocate (which I said would be arranged for the morning) and a change of nurses (which I also requested). She also considered leaving the hospital AMA - I did express concern that if she were to leave, we would no longer be able to treat her pain effectively with IV morphine.
[2020-08-10] MEDS ORDERED: MoRPHine SULFATE 2 MG/ML CARP ONE ×2 (03:17→07:49)
[2020-08-10] MEDS ORDERED: MoRPHine SULFATE 4 MG/ML 1 ML CARP\\VIAL ONE ×2 (03:17→07:50)
--- NOTE | 2020-08-10 07:08 | Hospitalist Progress Note ---
Date of Service August 10, 2020 Assessment & Plan (1) Chronic pain: Patient is a 20 year old female well known to our service with PMHx Sickle Cell and Chronic pain, admitted for acute vaso-occlusive sickle cell crisis now resolved. Chronic Pain -Continue Lyrica 150mg BID -Continue Cymbalta -Pain control -Oxycodone 10mg TID PO scheduled -Morphine 46mg Q2H IV PRN -Add Nucynta 50mg TID to determine if it will improve pain control -Voltaren PRN -Bowel Regiment with Sched miralax, senna daily in addition to PRN miralax, docusate Sleep Disturbance/Insomnia -Continue Trazodone, Doxepin, Melatonin BPD -Continue Buspar 15mg TID GERD -Continue Protonix Vaso-occlusive sickle cell crisis -S/P 2 units PRBC transfusion -Continue folic acid -Continue hydroxyurea -Continue incentive spirometry Dispo: M/S for pain control requiring IV morphine FEN: Reg diet, 1/2 NSS 100ml/hr DVT: Lovenox Code: Full (2) Sickle cell anemia: Admission and Anticipated Discharge Date Admission Date: July 26, 2020 Supervising Physician Co-Signing Physician Notes I personally examined the patient and verified all amaro points of history and exam, discussed case, and agree with decision making with Dr Mojica. Very upset about last night events. Feels that she is not being believed by some of staff, and that some staff judges her believing that she does not have real pain, and that staff were judging/not understanding what a pseudoseizure was. Offered empathy and support. Case discussed with current nursing who has a very keen understanding of what is going on, and offered several good suggestions to try to continue to further patient's pain control. Discussed case with staff at group rounds to ensure everyone is on the same page. Case also discussed with founder chairman and chief creative officer. Vitals noted, in general she is awake appearing both uncomfortable from pain and in a lot of emotional distress, crying significantly.. HEENT normocephalic atraumatic mucous membranes are moist. Breathing unlabored no accessory muscle use good effort. Skin shows no rashes no pallor or icterus. sickle cell w vasocclusive (and probably complicated multifactorial) pain -sickle vasocclusive pain, also possibly narcotics hyperalgesia, ?other chronic pain physiology -acute management for now - morphine (pain worsening increase for now)/fluids/timeand will give trial of Nucynta. Nursing suggested trial of Vistaril to potentially potentiate pain relieving effectsdiscussed with patient, main risk would be sedation, we agreed to give it a try. --->work towards sickle clinic as outpt, pain management eval, would benefit from pain psychology. trial of pregabalin underway, Nucynta as above. ---> Discussed optionsgiven patient's emotional duress, we discussed that since she is not showing hemolysis or acute chest syndrome, home is an optionbut that I would have grave concerns about how much she would suffer from uncontrolled pain, even if she is not in immediate danger. We discussed transfer to a tertiary hospital within a sickle cell center (patient harbors understandable concerns about being alone in his city with no contacts, and no way home afterwards), and we discussed how to make ongoing care here more tailored to her needs. On revisit, she decided to stay here. otherwise as above Initial time in 9:15 AM, time out 945, revisited later for another few minutes, greater than 30 minutes [id number]. Subjective With over all pain this AM in addition to rough night. 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 Feels that 6mg IV morphine does make her more tired, interested in option between 4-6mg IV PRN pain levels. No fever, chills, SOB, chest pain, ab pain. Review of Systems Review of Systems: All systems reviewed & are unremarkable except as noted in Subjective Physical Exam Constitutional: WD/WN, vitals as above Neck: trachea midline, no thyromegaly Respiratory: normal respiratory effort, lungs clear to auscultation Cardiovascular: RRR, no murmur, no edema Extremities: no calf tenderness Gastrointestinal (Abdomen): normal bowel sounds, soft, nontender, no hepatosplenomegaly Musculoskeletal: no cyanosis or clubbing, extremities motor strength 5/5 Psychiatric: A+Ox3, euthymic affect Results & Data Results & Data ([facility]) Vital Signs (Past 12 Hours) Vital Signs Temp Pulse Resp BP Pulse Ox 08/09/20 23:47 37 C 83 16 105/65 97 Resident Activity Tracking Resident Involvement: Resident Care Provided Care Provided: Adult Hospital Medicine (1) Sickle cell anemia Sickle-cell associated disorders: with unspecified crisis Qualified Code(s): D57.00 - Hb-SS disease with crisis, unspecified
[2020-08-10 09:23] LABS: Basophils # (auto) 0.02 K/uL (0-0.2); Basophils % (auto) 0.3 %; Eosinophils # (auto) 0.14 K/uL (0-0.5); Eosinophils % (auto) 2.2 %; Hematocrit (blood only) 32.9 % (37-47); Hemoglobin 11.4 g/dL (12.0-16.0); Immature Granulocytes # (auto) 0.01 K/uL (0.00-0.02); Immature Granulocytes % (auto) 0.2 %; Lymphocytes # (auto) 2.88 K/uL (1.2-3.4); Lymphocytes % (auto) 44.6 %; Mean Corpuscular Hemoglobin 36.7 pg (25-34); Mean Corpuscular Hgb Conc 34.7 g/dL (32-36); Mean Corpuscular Volume 105.8 fL (80-100); Mean Platelet Volume 9.6 fL (7.4-10.4); Monocytes # (auto) 0.27 K/uL (0.11-0.59); Monocytes % (auto) 4.2 %; Neutrophils # (auto) 3.14 K/uL (1.4-6.5); Neutrophils % (auto) 48.5 %; Platelet Count 315 K/uL (130-400); RDW Coefficient of Variation 20.2 % (11.5-14.5); RDW Standard Deviation 78.6 fL (36.4-46.3); Red Blood Count 3.11 M/uL (4.2-5.4); White Blood Count 6.46 K/uL (4.8-10.8)
[2020-08-10 09:57] LABS: Anisocytosis Present; Target Cells 1+
[2020-08-10 09:59] LABS: BUN Creatinine Ratio 23.8 (10-20); Blood Urea Nitrogen 9 mg/dl (7-18); Calcium 9.4 mg/dl (8.5-10.1); Carbon Dioxide 30 mmol/L (21-32); Chloride 104 mmol/L (98-107); Creatinine Clr Calc Pharmacy 235.9 ml/min; Est GFR (African American) > 150.0 ml/min; Est GFR (Non-African American) > 150.0 ml/min; Glucose 86 mg/dl (70-99); Sodium 137 mmol/L (136-145)
[2020-08-10] MEDS: POLYETHYLENE (MIRALAX) 17 GM PACK PO SCH (10:00)
[2020-08-10] MEDS: SENNA 8.6 MG TAB PO SCH (10:00)
[2020-08-10] MEDS ORDERED: MoRPHine SULFATE 4 MG/ML 1 ML CARP\\VIAL IV STA (10:17)
[2020-08-10] MEDS: DULoxetine HCL 60 MG CAP PO SCH (10:27)
[2020-08-10] MEDS: PREGABALIN 150 MG CAP PO SCH ×2 (10:27→21:01)
[2020-08-10] MEDS: HYDROXYUREA 500 MG CAP PO SCH ×2 (10:27→21:18)
[2020-08-10] MEDS: oxyCODONE HCL IR 5 MG TAB (IMMEDIATE RELEASE) PO SCH ×3 (10:27→21:01)
[2020-08-10] MEDS: busPIRone 15 MG TAB PO SCH ×3 (10:28→21:18)
[2020-08-10] MEDS: POLYETHYLENE (MIRALAX) 17 GM PACK PO PRN (10:28)
[2020-08-10] MEDS: ENOXAPARIN INJ 30 MG/0.3 ML SYR SQ SCH (10:29)
[2020-08-10] MEDS: DICLOFENAC SOD 1% GEL 100 GM TUBE EXT SCH ×4 (10:29→21:20)
[2020-08-10] MEDS: TAPENTADOL HCL 50 MG TAB PO SCH ×3 (11:34→22:46)
[2020-08-10] MEDS: hydrOXYzine HCl 25 MG TAB PO PRN (11:34)
[2020-08-10] MEDS: MoRPHine SULFATE 4 MG/ML 1 ML CARP\\VIAL IV PRN ×6 (12:27→23:08)
--- NOTE | 2020-08-10 20:26 | Billing Data ---
Date of Service August 10, 2020 Coding Level of Care Code 85046 Subseq Hosp Care Lvl 3
--- NOTE | 2020-08-10 20:26 | Billing Data ---
Date of Service August 10, 2020 Coding Level of Care Code 70980 Prolonged Care (int'l)
[2020-08-10] MEDS: ONDANSETRON INJ 2 MG/ML 2 ML VIAL IV PRN (21:01)
[2020-08-10] MEDS: PANTOprazole 40 MG TAB PO SCH (21:17)
[2020-08-10] MEDS: FOLIC ACID 1 MG TAB PO SCH (21:18)
[2020-08-10] MEDS: DOXEPIN HCL 25 MG CAPSULE PO PRN (21:19)
[2020-08-11] MEDS: MoRPHine SULFATE 4 MG/ML 1 ML CARP\\VIAL IV PRN ×2 (04:30→08:17)
[2020-08-11] MEDS: SODIUM CHLORIDE 0.45 % 1,000 ML IV SCH ×2 (05:59→15:38)
[2020-08-11] MEDS: oxyCODONE HCL IR 5 MG TAB (IMMEDIATE RELEASE) PO SCH (08:16)
[2020-08-11] MEDS: ONDANSETRON INJ 2 MG/ML 2 ML VIAL IV PRN (08:18)
[2020-08-11] MEDS: SENNA 8.6 MG TAB PO SCH (08:18)
[2020-08-11] MEDS: busPIRone 15 MG TAB PO SCH ×3 (08:19→21:55)
[2020-08-11] MEDS: HYDROXYUREA 500 MG CAP PO SCH ×2 (08:19→21:56)
[2020-08-11] MEDS: POLYETHYLENE (MIRALAX) 17 GM PACK PO SCH (08:20)
[2020-08-11] MEDS: DICLOFENAC SOD 1% GEL 100 GM TUBE EXT SCH ×4 (08:20→21:55)
[2020-08-11] MEDS: ENOXAPARIN INJ 30 MG/0.3 ML SYR SQ SCH (08:21)
--- NOTE | 2020-08-11 09:53 | Hospitalist Progress Note ---
Date of Service August 11, 2020 Assessment & Plan (1) Chronic pain: Patient is a 20 year old female well known to our service with PMHx Sickle Cell and Chronic pain, admitted for acute vaso-occlusive sickle cell crisis now resolved. Chronic Pain: -Continue Lyrica 150mg BID -Continue Cymbalta -Pain control -Oxycodone 10mg TID PO scheduled -Morphine 46mg Q2H IV PRN -continue Nucynta 50mg TID at this time, will increase by 50mg BID if continuing to tolerate every three days -Voltaren PRN -Bowel Regiment with Sched miralax, senna daily in addition to PRN miralax, docusate Sleep Disturbance/Insomnia: -Continue Trazodone, Doxepin, Melatonin BPD: -Continue Buspar 15mg TID GERD: -Continue Protonix Vaso-occlusive sickle cell crisis: -S/P 2 units PRBC transfusion -Continue folic acid -Continue hydroxyurea -Continue incentive spirometry (2) Sickle cell anemia: Admission and Anticipated Discharge Date Admission Date: July 26, 2020 Supervising Physician Co-Signing Physician Notes I personally examined the patient and verified all amaro points of history and exam, discussed case, and agree with decision making with Dr Thompson. Feels a bit better with pain than before. Is a little bit worriednotes that she is easily forgetful, and sometimes has difficulty focusing her eyes. At other times her eyelids start to droop and she is not really able to control it. She does note that sometimes that happens before she has a nonepileptic seizure. Vitals noted, awake and alert pleasant appears fatigued but no distress today. HEENT normocephalic atraumatic mucous membranes moist. Breathing unlabored no accessory muscle use good effort. Neuro shows cranial nerves II through XII to be grossly intact gross motor and sensory are intact without any focal motor or sensory deficits, she does occasionally during conversation have a little bit of an involuntary lid lag equal bilaterally and her eyes seem to lose focus. However as above noted, pupils are equal and EOMI. sickle cell w vasocclusive (and probably complicated multifactorial) pain -sickle vasocclusive pain, also possibly narcotics hyperalgesia, ?other chronic pain physiology -acute management for now -seems that maybe her pain is starting to theresa a little. Continue current care for now --->work towards [facility] clinic as outpt, pain management eval, would benefit from pain psychology. trial of pregabalin underway, Manjula fortunately appears to be coveredright now she is on 50 mg 3 times daily of short acting, tomorrow as long as she is continuing to tolerate well we will add the ER 50 mg twice daily and to continue to titrate (likely both inpatient and after discharge). Confusion, visual blurring, lid lagdiscussed with patient the high likelihood that this is really nonspecific symptoms that are combination of med side effects from sedating meds, as well as the natural anxiety and distraction that comes from having a chronic disease and chronic pain. She harbor significant concern about any type of organic brain disease related to her sickle cellI discussed with her without focal neuro deficits this would be highly unlikely, but given that cycle can cause microvascular vaso-occlusion, to rule out any sort of neurologic [employer] process, as well as for her peace of mind, MRI brain ordered. otherwise as above Subjective Extensive discussions this morning regarding patient's mood, and mood lability. Feels stuck because she is continuing to have this cyclical and frequent sickle crisis episodes. Feels like her pain is doing well right now but recognizes that this fluctuates frequently. Review of Systems Review of Systems: All systems reviewed & are unremarkable except as noted in Subjective Physical Exam Constitutional: WD/WN, vitals as above Eyes: PERRL, conjunctivae normal, anicteric sclerae Respiratory: normal respiratory effort, lungs clear to auscultation Auscultation: no crackles, no rales, no rhonchi and no wheezes Cardiovascular: Rate/Rhythm: regular rate and regular rhythm Heart Sounds: no gallop, no murmur and no cardiac rub Vessels: normal peripheral pulses; no JVD Extremities: no edema Musculoskeletal: no cyanosis or clubbing, extremities motor strength 5/5 Skin: no rashes, warm and dry Neurologic: PERRL, EOMI, accommodation nl, no face palsy, no dysarthria CN's II-XI intact bilaterally and moves all extremities Psychiatric: Orientation: alert and oriented x 3 Results & Data Results & Data ([facility]) Vital Signs (Past 12 Hours) Vital Signs Temp Pulse Resp BP Pulse Ox 08/11/20 07:44 36.8 C 87 18 97/64 L 97 08/10/20 23:30 36.5 C 79 17 95/60 L 98 Medications Administered Current Inpatient Medications Bisacodyl (Bisacodyl 5 Mg Tabec) 5 mg PO BID PRN PRN Reason: Constipation Stop: 08/30/20 09:45 Buspirone HCl (Buspirone 15 Mg Tab) 15 mg PO TID [facility] Stop: 09/01/20 13:59 Last Admin: 08/11/20 08:19 Dose: 15 mg Documented by: Diclofenac Sodium (Diclofenac Sod 1% Gel 100 Gm Tube) 4 gm EXT QID WALTER Stop: 08/25/20 08:59 Last Admin: 08/11/20 08:20 Dose: 4 gm Documented by: Doxepin HCl (Doxepin Hcl 25 Mg Capsule) 25 mg PO HS PRN PRN Reason: sleep Stop: 08/25/20 03:29 Last Admin: 08/10/20 21:19 Dose: 25 mg Documented by: Duloxetine HCl (Duloxetine Hcl 60 Mg Cap) 60 mg PO HS [facility] Stop: 08/25/20 20:59 Last Admin: 08/10/20 10:27 Dose: 60 mg Documented by: Enoxaparin Sodium (Enoxaparin Inj 30 Mg/0.3 Ml Syr) 30 mg SQ QAM [facility] Stop: 08/31/20 11:59 Last Admin: 08/11/20 08:21 Dose: Not Given Documented by: Folic Acid (Folic Acid 1 Mg Tab) 2 mg PO HS [facility] Stop: 08/25/20 20:59 Last Admin: 08/10/20 21:18 Dose: 2 mg Documented by: Hydroxyurea (Hydroxyurea 500 Mg Cap) 1,000 mg PO BID [facility] Stop: 08/25/20 08:59 Last Admin: 08/11/20 08:19 Dose: 1,000 mg Documented by: Hydroxyzine HCl (Hydroxyzine Hcl 25 Mg Tab) 25 mg PO Q4H PRN PRN Reason: Pain Stop: 09/09/20 10:16 Last Admin: 08/10/20 11:34 Dose: 25 mg Documented by: Sodium Chloride (1/2 Nss) 1,000 mls @ 100 mls/hr IV .Q10H [facility] Stop: 09/01/20 10:29 Last Admin: 08/11/20 05:59 Dose: 100 mls/hr Documented by: Morphine Sulfate (Morphine Sulfate 10 Mg/Ml Carp/Vial) 6 mg IV Q2H PRN PRN Reason: SEVERE Pain Stop: 08/16/20 12:27 Last Admin: 08/11/20 13:12 Dose: 6 mg Documented by: Morphine Sulfate (Morphine Sulfate 4 Mg/Ml 1 Ml Carp\Vial) 4 mg IV Q2H PRN PRN Reason: MODERATE Pain Stop: 08/24/20 08:44 Last Admin: 08/11/20 08:17 Dose: 4 mg Documented by: Ondansetron HCl (Ondansetron Inj 2 Mg/Ml 2 Ml Vial) 4 mg IV Q6H PRN PRN Reason: Nausea And Vomiting Stop: 08/25/20 03:29 Last Admin: 08/11/20 08:18 Dose: 4 mg Documented by: Pantoprazole Sodium (Pantoprazole 40 Mg Tab) 40 mg PO HS [facility] Stop: 08/25/20 20:59 Last Admin: 08/10/20 21:17 Dose: 40 mg Documented by: Polyethylene Glycol (Polyethylene (Miralax) 17 Gm Pack) 17 gm PO BID PRN PRN Reason: constipation Stop: 08/25/20 03:29 Last Admin: 07/30/20 08:58 Dose: 17 gm Documented by: Polyethylene Glycol (Polyethylene (Miralax) 17 Gm Pack) 17 gm PO DAILY [facility] Stop: 08/30/20 09:59 Last Admin: 08/11/20 08:20 Dose: 17 gm Documented by: Pregabalin (Pregabalin 150 Mg Cap) 150 mg PO BID [facility] Stop: 08/28/20 20:59 Last Admin: 08/11/20 09:56 Dose: 150 mg Documented by: Sennosides (Senna 8.6 Mg Tab) 17.2 mg PO QAM [facility] Stop: 08/25/20 08:59 Last Admin: 08/11/20 08:18 Dose: 17.2 mg Documented by: Tapentadol (Tapentadol Hcl 50 Mg Tab) 50 mg PO TID [facility] Stop: 08/24/20 10:29 Last Admin: 08/11/20 10:11 Dose: 50 mg Documented by: Resident Activity Tracking Resident Involvement: Resident Care Provided Care Provided: Adult Hospital Medicine (1) Sickle cell anemia Sickle-cell associated disorders: with unspecified crisis Qualified Code(s): D57.00 - Hb-SS disease with crisis, unspecified
[2020-08-11] MEDS: PREGABALIN 150 MG CAP PO SCH ×2 (09:56→22:04)
[2020-08-11] MEDS: TAPENTADOL HCL 50 MG TAB PO SCH ×3 (10:11→22:04)
[2020-08-11] MEDS: MoRPHine SULFATE 10 MG/ML CARP/VIAL IV PRN ×7 (10:29→23:48)
--- NOTE | 2020-08-11 17:29 | Magnetic Resonance Report ---
MRI OF THE BRAIN WITHOUT IV CONTRAST CLINICAL HISTORY: Change in mental status. Blurry vision. COMPARISON STUDY: CT of the brain dated 11/10/2019. MRI of the brain dated 11/24/2018. TECHNIQUE: MRI of the brain was performed utilizing various T1 and T2-weighted sequences in the axial , sagittal, and coronal planes. IV contrast was not administered for this examination. The examinatio n is performed using the seizure protocol. FINDINGS: Brain parenchyma: The brain parenchyma is normal in appearance. There is no hemorrhage or mass effect . There is no restricted diffusion to suggest acute ischemia. Bashir-white matter differentiation is pr eserved. No extra-axial fluid collection is seen. The cerebellar tonsils are normal in configuration. The hippocampi are normal and symmetric. Ventricles, sulci, and cisterns: Normal in configuration. Pituitary and sella: Unremarkable. Intracranial vasculature: Normal flow voids are maintained at the skull base. Orbits: The bony orbits are grossly intact. Orbital contents are normal in appearance. Sinuses and mastoids: Clear. Calvarium: Thickening of the sphenoid bone in the left parietal bone is unchanged from previous. No d estructive calvarial lesion is identified. Cervical cord: Partially visualized cervical spinal cord is normal in morphology and signal intensity . IMPRESSION: No intracranial abnormality is identified. ACT 112: Negative or not required by law. Electronically signed by: Richard Mcmahon M.D. 08/11/2020 5:28 PM
--- NOTE | 2020-08-11 19:22 | Billing Data ---
Date of Service August 11, 2020 Coding Level of Care Code 53367 Subseq Hosp Care Lvl 3
[2020-08-11] MEDS: DULoxetine HCL 60 MG CAP PO SCH (21:55)
[2020-08-11] MEDS: FOLIC ACID 1 MG TAB PO SCH (21:55)
[2020-08-11] MEDS: PANTOprazole 40 MG TAB PO SCH (21:57)
[2020-08-12] MEDS: SODIUM CHLORIDE 0.45 % 1,000 ML IV SCH ×3 (02:02→19:23)
[2020-08-12] MEDS: MoRPHine SULFATE 10 MG/ML CARP/VIAL IV PRN ×12 (02:02→23:48)
[2020-08-12] MEDS: DOXEPIN HCL 25 MG CAPSULE PO PRN (04:16)
[2020-08-12] MEDS: PREGABALIN 150 MG CAP PO SCH ×2 (08:34→20:42)
[2020-08-12] MEDS: busPIRone 15 MG TAB PO SCH ×3 (08:34→20:42)
[2020-08-12] MEDS: SENNA 8.6 MG TAB PO SCH (08:35)
[2020-08-12] MEDS: HYDROXYUREA 500 MG CAP PO SCH ×2 (08:36→20:42)
[2020-08-12] MEDS: TAPENTADOL HCL 50 MG TAB PO SCH ×3 (08:43→20:42)
[2020-08-12] MEDS: ENOXAPARIN INJ 30 MG/0.3 ML SYR SQ SCH (08:44)
[2020-08-12] MEDS: POLYETHYLENE (MIRALAX) 17 GM PACK PO SCH (08:44)
[2020-08-12] MEDS: DICLOFENAC SOD 1% GEL 100 GM TUBE EXT SCH ×4 (08:45→20:44)
--- NOTE | 2020-08-12 10:37 | Hospitalist Progress Note ---
Date of Service August 12, 2020 Assessment & Plan (1) Chronic pain: Patient is a 20-year-old female well known to our service with PMHx. sickle cell and chronic pain, admitted for acute vaso-occlusive sickle cell crisis now resolved. Chronic Pain: -Continue Lyrica 150mg BID -Continue Cymbalta -Pain control -Oxycodone 10mg TID PO scheduled -Morphine 46mg Q2H IV PRN -continue Nucynta 50mg TID at this time, added 50mg ER BID; increased again in 3 days -Voltaren PRN -Bowel Regimen with kaity Miralax, senna daily in addition to PRN Miralax, Docusate Sleep Disturbance/Insomnia: -Continue Trazodone, Doxepin, & Melatonin BPD: -Continue Buspar. 15mg TID GERD: -Continue Protonix Vaso-occlusive sickle cell crisis: -S/P 2 units PRBC transfusion -Continue folic acid -Continue hydroxyurea -Continue incentive spirometry DVT: Lovenox Code: full Admission and Anticipated Discharge Date Admission Date: July 26, 2020 Supervising Physician Co-Signing Physician Notes I personally examined the patient and verified all amaro points of history and exam, discussed case, and agree with decision making with Dr Tan. Pain a bit worse again, in her chestbut she thinks it is probably all sternal pain not chest syndrome. She also has some back pain. Is needed as needed morphine more. Vitals noted, awake and alert pleasant appears fatigued but no distress today. HEENT normocephalic atraumatic mucous membranes moist. Lungs overall clearinitially she had faint rhonchi base right but this clears with repeated deep breath, otherwise no rales rhonchi or wheezes good effort no accessory muscle use. No focal neuro deficits. sickle cell w vasocclusive (and probably complicated multifactorial) pain -sickle vasocclusive pain, also possibly narcotics hyperalgesia, ?other chronic pain physiology -Continue IV fluids and IV pain meds --->work towards sickle clinic as outpt, pain management eval, would benefit from pain psychology. trial of pregabalin underway, Nucynta fortunately appears to be coveredright now she is on 50 mg 3 times daily of short acting, add Nucynta ER 50 mg twice daily and to continue to titrate (likely both inpatient and after discharge). ---> Vigilance given that she is complaining of some chest pain, but right now on clinical assessment with her lungs being clear and her pulse ox being good, I tend to agree with her assessment that this is likely sternal pain not acute chest syndrome Confusion, visual blurring, lid lagdiscussed with patient the high likelihood that this is really nonspecific symptoms that are combination of med side effects from sedating meds, as well as the natural anxiety and distraction that comes from having a chronic disease and chronic pain. MRI brain normal, corrob orating this. otherwise as above Subjective She was sleepy when I saw her this morning, coming in later in the day she was complaining of some pain that she relates to her sternum and back. She didn't have any questions and understood and agreed with the plan going forward. Review of Systems Review of Systems: unable to obtain as the patient was sleeping Physical Exam Constitutional: - lying in bed eyes closed Eyes: PERRL, conjunctivae normal, anicteric sclerae Neck: normal visual inspection Respiratory: normal respiratory effort, lungs clear to auscultation Cardiovascular: RRR, no murmur, no edema Gastrointestinal (Abdomen): normal bowel sounds, soft, nontender, no hepatosplenomegaly Skin: no rashes, warm and dry Neurologic: no focal motor deficits Psychiatric: Orientation: alert Eye Contact: good eye contact Speech: no pressured speech Affect: + depressed affect Results & Data Results & Data ([facility]) Vital Signs (Past 12 Hours) Vital Signs Temp Pulse Resp BP Pulse Ox 08/12/20 07:39 36.6 C 86 16 87/56 L 95 08/12/20 01:10 36.7 C 91 H 18 106/63 95 CBC Results Results Complete Blood Count Results: RBC 3.11 M/uL (4.2-5.4) L 08/10/20 WBC 6.46 K/uL (4.8-10.8) 08/10/20 Hgb 11.4 g/dL (12.0-16.0) L 08/10/20 Hct 32.9 % (37-47) L 08/10/20 Plt Count 315 K/uL (130-400) 08/10/20 Chemistry (BMP) Results BMP Results: Sodium 137 mmol/L (136-145) 08/10/20 Potassium 4.0 mmol/L (3.5-5.1) 08/10/20 Chloride 104 mmol/L (98-107) 08/10/20 BUN 9 mg/dl (7-18) 08/10/20 Creatinine 0.38 mg/dl (0.6-1.2) L 08/10/20 Glucose 86 mg/dl (70-99) 08/10/20 Resident Activity Tracking Resident Involvement: Resident Care Provided Care Provided: [facility]
[2020-08-12] MEDS: hydrOXYzine HCl 25 MG TAB PO PRN (14:13)
--- NOTE | 2020-08-12 16:20 | Billing Data ---
Date of Service August 12, 2020 Coding Level of Care Code 16474 Subseq Hosp Care Lvl 3
[2020-08-12] MEDS: TAPENTADOL HCL ER 50 MG TABCR PO SCH (20:41)
[2020-08-12] MEDS: PANTOprazole 40 MG TAB PO SCH (20:42)
[2020-08-12] MEDS: DULoxetine HCL 60 MG CAP PO SCH (20:42)
[2020-08-12] MEDS: FOLIC ACID 1 MG TAB PO SCH (20:42)
[2020-08-13] MEDS: MoRPHine SULFATE 10 MG/ML CARP/VIAL IV PRN ×3 (02:09→22:42)
[2020-08-13] MEDS: SODIUM CHLORIDE 0.45 % 1,000 ML IV SCH ×3 (05:05→22:45)
[2020-08-13 06:12] LABS: Basophils # (auto) 0.02 K/uL (0-0.2); Basophils % (auto) 0.4 %; Eosinophils % (auto) 1.9 %; Hematocrit (blood only) 27.7 % (37-47); Hemoglobin 9.7 g/dL (12.0-16.0); Immature Granulocytes # (auto) 0.01 K/uL (0.00-0.02); Immature Granulocytes % (auto) 0.2 %; Lymphocytes # (auto) 2.39 K/uL (1.2-3.4); Lymphocytes % (auto) 45.2 %; Mean Corpuscular Hemoglobin 36.7 pg (25-34); Mean Corpuscular Volume 104.9 fL (80-100); Mean Platelet Volume 9.9 fL (7.4-10.4); Monocytes # (auto) 0.35 K/uL (0.11-0.59); Monocytes % (auto) 6.6 %; Neutrophils # (auto) 2.42 K/uL (1.4-6.5); Neutrophils % (auto) 45.7 %; Nucleated RBC # (auto) 0.03 K/uL (0-0); Nucleated RBC % (auto) 0.6 %; Platelet Count 326 K/uL (130-400); RDW Coefficient of Variation 19.8 % (11.5-14.5); RDW Standard Deviation 75.8 fL (36.4-46.3); Red Blood Count 2.64 M/uL (4.2-5.4); White Blood Count 5.29 K/uL (4.8-10.8)
[2020-08-13 06:54] LABS: BUN Creatinine Ratio 31.7 (10-20); Blood Urea Nitrogen 10 mg/dl (7-18); Calcium 8.9 mg/dl (8.5-10.1); Carbon Dioxide 31 mmol/L (21-32); Chloride 102 mmol/L (98-107); Creatinine Clr Calc Pharmacy 289.1 ml/min; Est GFR (African American) > 150.0 ml/min; Est GFR (Non-African American) > 150.0 ml/min; Glucose 87 mg/dl (70-99); Potassium 3.9 mmol/L (3.5-5.1); Sodium 137 mmol/L (136-145)
[2020-08-13] MEDS: MoRPHine SULFATE 4 MG/ML 1 ML CARP\\VIAL IV PRN ×7 (08:38→20:40)
[2020-08-13] MEDS: HYDROXYUREA 500 MG CAP PO SCH ×2 (08:39→20:41)
[2020-08-13] MEDS: SENNA 8.6 MG TAB PO SCH (08:39)
[2020-08-13] MEDS: busPIRone 15 MG TAB PO SCH ×3 (08:39→20:41)
[2020-08-13] MEDS: TAPENTADOL HCL 50 MG TAB PO SCH ×3 (08:53→20:40)
[2020-08-13] MEDS: DICLOFENAC SOD 1% GEL 100 GM TUBE EXT SCH ×4 (08:53→20:46)
[2020-08-13] MEDS: TAPENTADOL HCL ER 50 MG TABCR PO SCH ×2 (08:53→20:40)
[2020-08-13] MEDS: ENOXAPARIN INJ 30 MG/0.3 ML SYR SQ SCH (08:53)
[2020-08-13] MEDS: PREGABALIN 150 MG CAP PO SCH ×2 (08:53→20:40)
[2020-08-13] MEDS: POLYETHYLENE (MIRALAX) 17 GM PACK PO SCH (08:54)
[2020-08-13] MEDS: ONDANSETRON INJ 2 MG/ML 2 ML VIAL IV PRN (08:54)
--- NOTE | 2020-08-13 11:30 | XRay Report ---
TWO VIEW CHEST CLINICAL HISTORY: Atypical chest pain. FINDINGS: PA and lateral chest radiographs are compared to study dated 08/01/2020. The cardiomediastin al silhouette is unremarkable. The lungs and pleural spaces are clear. There is no pneumothorax. The bony thorax appears intact. IMPRESSION: No active disease in the chest. ACT 112: Negative or not required by law. Electronically signed by: Richard Mcmahon M.D. 08/13/2020 11:29 AM
--- NOTE | 2020-08-13 18:25 | Hospitalist Progress Note ---
Date of Service August 13, 2020 Assessment & Plan Admission and Anticipated Discharge Date Admission Date: July 26, 2020 Supervising Physician Co-Signing Physician Notes sickle cell w vasocclusive (and probably complicated multifactorial) pain -sickle vasocclusive pain, also possibly narcotics hyperalgesia, ?other chronic pain physiology -Continue IV fluids and IV pain meds -doubt acute chest but check CXR. (late addendum looks clear) - continue to follow CBC. continue to offer transfer to [facility] [place] but understandably she doesn't want to do this given transportation/social support issues. --->work towards sickle clinic as outpt, pain management eval, would benefit from pain psychology. trial of pregabalin underway, Nucynta fortunately appears to be coveredright now she is on 50 mg 3 times daily of short acting, added Nucynta ER 50 mg twice daily and to continue to titrate (likely both inpatient and after discharge). ---> if evidence of acute chest evolves, or if worse hemolysis -- would need to transfer, otherwise will defer to pt's choice Confusion, visual blurring, lid lagdiscussed with patient the high likelihood that this is really nonspecific symptoms that are combination of med side effects from sedating meds, as well as the natural anxiety and distraction that comes from having a chronic disease and chronic pain. MRI brain normal, corroborating this. Subjective feeling about the same, still fairly bad chest pain. no sob. Review of Systems Review of Systems: All systems reviewed & are unremarkable except as noted in HPI & below Physical Exam Physical Exam: fatigued. heent nc at mmm. lungs cta b/l no rr//w sternum tender Results & Data Results & Data ([facility]) Vital Signs (Past 12 Hours) Vital Signs Temp Pulse Resp BP BP Pulse Ox 08/13/20 14:47 98.1 F 85 18 110/68 98 08/13/20 07:33 97.7 F 78 19 109/66 97 PG Care Time/CCT Total # of Minutes Spent Total Time Spent with Patient: Total time spent is greater than 50% in coordination of care (as documented) at patient's floor/unit and/or counseling patient: Coding Level of Care Code 20737 Subseq Hosp Care Lvl 3
[2020-08-13] MEDS: PANTOprazole 40 MG TAB PO SCH (20:41)
[2020-08-13] MEDS: DULoxetine HCL 60 MG CAP PO SCH (20:41)
[2020-08-13] MEDS: FOLIC ACID 1 MG TAB PO SCH (20:41)
[2020-08-13] MEDS: hydrOXYzine HCl 25 MG TAB PO PRN (21:18)
[2020-08-13] MEDS ORDERED: ACETAMINOPHEN 1,000 MG/100 ML VIAL IV STA (22:34)
[2020-08-13] MEDS ORDERED: ACETAMINOPHEN 1000 MG/100 ML IV IV ONE (22:40)
[2020-08-14] MEDS: MoRPHine SULFATE 10 MG/ML CARP/VIAL IV PRN ×6 (00:42→23:53)
--- NOTE | 2020-08-14 07:03 | Hospitalist Progress Note ---
Date of Service August 14, 2020 Assessment & Plan (1) Chronic pain: Patient is a 20-year-old female well known to our service with PMHx. sickle cell and chronic pain, admitted on 07/26/2020 for acute vaso-occlusive sickle cell crisis which seems to be resolving at this point, although now has persistent pain that is not controlled with IV pain medications. Acute on Chronic Pain Possible sickle cell vaso-occlusive pain vs narcotic hyperalgesia vs other chronic pain physiology. Not adequately controlled with current pain regimen. - Continue Pregabalin 150mg BID and Cymbalta 60mg PO QHS - Continue Tapentadol 50mg PO TID and ER 50mg PO Q12H - consider further up-t itration at later time - PRN regimen: - Morphine 4mg IV Q2H (moderate pain), 6mg IV Q2H (severe pain) - Voltaren gel PRN - can add Tylenol 1000mg IV PRN (contact provider for order) - Bowel Regimen with scheduled Miralax/Senna in addition to PRN Miralax/Docusate - will attempt to contact [facility] [place] for further recommendations Vaso-occlusive sickle cell crisis, resolving S/P 2 units PRBC transfusion, Hgb 9.6 today. CXR without evidence of ACS. - Continue folic acid 2mg PO QHS, hydroxyurea 1000mg PO BID - Continue incentive spirometry - Pain control as above Sleep Disturbance/Insomnia - Continue Doxepin 25mg PO QHS Anxiety/BPD - Continue Buspirone 15mg TID GERD - Continue Protonix 40mg PO QHS FEN/GI: regular, 1/2NS @100cc/hr DVT ppx: Lovenox 30mg SQ QAM Code: full code Dispo: med/surg, patient is considering transfer to sickle cell center but dispo plan uncertain at this time Admission and Anticipated Discharge Date Admission Date: July 26, 2020 Supervising Physician Co-Signing Physician Notes Resident Physician Supervision Note: I independently interviewed and examined the patient and verified the amaro history and physical, reviewed labs and image studies and agree with resident Dr. Whaley findings and care plan. Subjective Getting Morphine 6mg IV ~Q2H in addition to Morphine 4mg IV x2 overnight. Also got Tylenol 1g IV x1 for breakthrough pain. Reports that pain is not controlled and is still having severe pain in chest, abdomen, upper and lower extremities. She is able to eat/drink. Had a BM yesterday and is urinating normally. We spoke extensively about the patient's options at this point - she is considering transfer to sickle cell center but still has not made a decision about this yet. Review of Systems Review of Systems: Denies fever/chills, palpitations, cough, SOB, N/V, rash. Physical Exam Physical Exam: General: A&Ox3. Curled in a ball and lying on her side in the bed, appears to be in moderate discomfort HEENT: Atraumatic, normocephalic. Pulm: CTAB A&P. -wheezes, -rales, -rhonchi. Symmetrical chest rise. No increase work of breathing. No respiratory distress. Cardiac: RRR, -mrg. Radial pulses intact and symmetrical. Chest: moderate tenderness to palpation of sternum Abdominal: soft, moderately tender throughout but patient reports this has been present for several weeks, non-distended, BS x 4 Extremities: moderate point tenderness to palpation throughout upper and lower extremities Results & Data Results & Data ([facility]) Vital Signs (Past 12 Hours) Vital Signs Temp Pulse Resp BP BP Pulse Ox 08/14/20 07:00 37.0 C 83 16 105/68 97 08/13/20 22:37 37 C 89 16 104/69 99 Resident Activity Tracking Resident Involvement: Resident Care Provided Care Provided: Adult Hospital Medicine
[2020-08-14 09:13] LABS: Basophils # (auto) 0.02 K/uL (0-0.2); Basophils % (auto) 0.3 %; Eosinophils # (auto) 0.12 K/uL (0-0.5); Eosinophils % (auto) 1.9 %; Hematocrit (blood only) 27.5 % (37-47); Hemoglobin 9.6 g/dL (12.0-16.0); Immature Granulocytes # (auto) 0.01 K/uL (0.00-0.02); Immature Granulocytes % (auto) 0.2 %; Lymphocytes % (auto) 29.4 %; Mean Corpuscular Hemoglobin 36.8 pg (25-34); Mean Corpuscular Hgb Conc 34.9 g/dL (32-36); Mean Corpuscular Volume 105.4 fL (80-100); Mean Platelet Volume 9.9 fL (7.4-10.4); Monocytes # (auto) 0.17 K/uL (0.11-0.59); Monocytes % (auto) 2.6 %; Neutrophils # (auto) 4.24 K/uL (1.4-6.5); Neutrophils % (auto) 65.6 %; Platelet Count 341 K/uL (130-400); RDW Coefficient of Variation 19.9 % (11.5-14.5); RDW Standard Deviation 75.6 fL (36.4-46.3); Red Blood Count 2.61 M/uL (4.2-5.4); White Blood Count 6.46 K/uL (4.8-10.8)
[2020-08-14] MEDS: busPIRone 15 MG TAB PO SCH ×3 (09:18→21:27)
[2020-08-14] MEDS: HYDROXYUREA 500 MG CAP PO SCH ×2 (09:18→21:27)
[2020-08-14] MEDS: SENNA 8.6 MG TAB PO SCH (09:18)
[2020-08-14] MEDS: MoRPHine SULFATE 4 MG/ML 1 ML CARP\\VIAL IV PRN ×3 (09:19→17:11)
[2020-08-14] MEDS: POLYETHYLENE (MIRALAX) 17 GM PACK PO SCH (09:19)
[2020-08-14] MEDS: PREGABALIN 150 MG CAP PO SCH ×2 (09:19→21:27)
[2020-08-14] MEDS: ENOXAPARIN INJ 30 MG/0.3 ML SYR SQ SCH (09:20)
[2020-08-14] MEDS: DICLOFENAC SOD 1% GEL 100 GM TUBE EXT SCH ×4 (09:20→21:23)
[2020-08-14] MEDS: TAPENTADOL HCL 50 MG TAB PO SCH ×3 (09:25→21:51)
[2020-08-14] MEDS: TAPENTADOL HCL ER 50 MG TABCR PO SCH ×2 (09:27→21:51)
[2020-08-14 09:35] LABS: Alanine Aminotransferase 87 U/L (12-78); Albumin Level 3.2 gm/dl (3.4-5.0); Aspartate Aminotransferase 61 U/L (15-37); BUN Creatinine Ratio 27.7 (10-20); Blood Urea Nitrogen 10 mg/dl (7-18); Calcium 8.7 mg/dl (8.5-10.1); Carbon Dioxide 30 mmol/L (21-32); Chloride 103 mmol/L (98-107); Est GFR (African American) > 150.0 ml/min; Est GFR (Non-African American) > 150.0 ml/min; Glucose 90 mg/dl (70-99); Potassium 3.4 mmol/L (3.5-5.1); Sodium 137 mmol/L (136-145)
[2020-08-14 09:38] LABS: Albumin Globulin Ratio 0.8 (0.9-2); Alkaline Phosphatase 93 U/L (45-117); Bilirubin,Total 1.2 mg/dl (0.2-1); Globulin 3.9 gm/dl (2.5-4.0); Total Protein 7.1 gm/dl (6.4-8.2)
[2020-08-14] MEDS ORDERED: POTASSIUM CHLORIDE CRTAB 20 MEQ TABCR PO SCH (10:00)
[2020-08-14] MEDS: SODIUM CHLORIDE 0.45 % 1,000 ML IV SCH ×2 (11:18→21:51)
[2020-08-14] MEDS: DOXEPIN HCL 25 MG CAPSULE PO PRN (21:23)
[2020-08-14] MEDS: DULoxetine HCL 60 MG CAP PO SCH (21:28)
[2020-08-14] MEDS: PANTOprazole 40 MG TAB PO SCH (21:28)
[2020-08-14] MEDS: FOLIC ACID 1 MG TAB PO SCH (21:29)
[2020-08-15] MEDS: hydrOXYzine HCl 25 MG TAB PO PRN (01:34)
[2020-08-15] MEDS: MoRPHine SULFATE 10 MG/ML CARP/VIAL IV PRN ×7 (03:33→23:37)
[2020-08-15 07:51] LABS: Basophils # (auto) 0.02 K/uL (0-0.2); Basophils % (auto) 0.4 %; Eosinophils # (auto) 0.11 K/uL (0-0.5); Eosinophils % (auto) 2.3 %; Hematocrit (blood only) 27.7 % (37-47); Hemoglobin 9.7 g/dL (12.0-16.0); Immature Granulocytes # (auto) 0.01 K/uL (0.00-0.02); Immature Granulocytes % (auto) 0.2 %; Lymphocytes # (auto) 2.18 K/uL (1.2-3.4); Lymphocytes % (auto) 45.6 %; Mean Corpuscular Hemoglobin 37.2 pg (25-34); Mean Corpuscular Volume 106.1 fL (80-100); Mean Platelet Volume 9.6 fL (7.4-10.4); Monocytes # (auto) 0.25 K/uL (0.11-0.59); Monocytes % (auto) 5.2 %; Neutrophils # (auto) 2.21 K/uL (1.4-6.5); Neutrophils % (auto) 46.3 %; Platelet Count 340 K/uL (130-400); RDW Coefficient of Variation 19.5 % (11.5-14.5); RDW Standard Deviation 75.5 fL (36.4-46.3); Red Blood Count 2.61 M/uL (4.2-5.4); White Blood Count 4.78 K/uL (4.8-10.8)
[2020-08-15 08:27] LABS: Alanine Aminotransferase 79 U/L (12-78); Albumin Level 3.3 gm/dl (3.4-5.0); Aspartate Aminotransferase 48 U/L (15-37); BUN Creatinine Ratio 23.2 (10-20); Blood Urea Nitrogen 9 mg/dl (7-18); Calcium 8.9 mg/dl (8.5-10.1); Carbon Dioxide 30 mmol/L (21-32); Chloride 103 mmol/L (98-107); Creatinine Clr Calc Pharmacy 235.9 ml/min; Est GFR (African American) > 150.0 ml/min; Est GFR (Non-African American) > 150.0 ml/min; Glucose 88 mg/dl (70-99); Potassium 3.7 mmol/L (3.5-5.1); Sodium 137 mmol/L (136-145)
[2020-08-15 08:30] LABS: Albumin Globulin Ratio 0.8 (0.9-2); Alkaline Phosphatase 90 U/L (45-117); Bilirubin,Total 1.2 mg/dl (0.2-1); Globulin 4.2 gm/dl (2.5-4.0); Total Protein 7.5 gm/dl (6.4-8.2)
[2020-08-15] MEDS: DICLOFENAC SOD 1% GEL 100 GM TUBE EXT SCH ×4 (10:43→21:25)
[2020-08-15] MEDS: TAPENTADOL HCL 50 MG TAB PO SCH ×3 (10:43→21:26)
[2020-08-15] MEDS: SODIUM CHLORIDE 0.45 % 1,000 ML IV SCH ×2 (10:43→19:14)
[2020-08-15] MEDS: SENNA 8.6 MG TAB PO SCH (10:43)
[2020-08-15] MEDS: busPIRone 15 MG TAB PO SCH ×3 (10:43→21:24)
[2020-08-15] MEDS: PREGABALIN 150 MG CAP PO SCH ×2 (10:43→21:26)
[2020-08-15] MEDS: HYDROXYUREA 500 MG CAP PO SCH ×2 (10:43→21:20)
[2020-08-15] MEDS: TAPENTADOL HCL ER 50 MG TABCR PO SCH ×2 (10:43→21:31)
[2020-08-15] MEDS: ENOXAPARIN INJ 30 MG/0.3 ML SYR SQ SCH (11:39)
[2020-08-15] MEDS: POLYETHYLENE (MIRALAX) 17 GM PACK PO SCH (11:39)
--- NOTE | 2020-08-15 12:42 | Hospitalist Progress Note ---
Date of Service August 15, 2020 Assessment & Plan (1) Chronic pain: Patient is a 20-year-old female well known to our service with PMHx. sickle cell and chronic pain, admitted on 07/26/2020 for acute vaso-occlusive sickle cell crisis which seems to be resolving at this point, although now has persistent pain that is not controlled with IV pain medications. Acute on Chronic Pain Possible sickle cell vaso-occlusive pain vs narcotic hyperalgesia vs other chronic pain physiology. Not adequately controlled with current pain regimen. - Continue Pregabalin 150mg BID and Cymbalta 60mg PO QHS - Continue Tapentadol 50mg PO TID and ER 50mg PO Q12H - consider further up-t itration at later time - PRN regimen: - Morphine 4mg IV Q2H (moderate pain), 6mg IV Q2H (severe pain) - Voltaren gel PRN - can add Tylenol 1000mg IV PRN (contact provider for order) - Bowel Regimen with scheduled Miralax/Senna in addition to PRN Miralax/Docusate - will attempt to contact [facility] [place] for further recommendations Vaso-occlusive sickle cell crisis, resolving S/P 2 units pRBC transfusion, Hgb 9.7 today. CXR without evidence of ACS. - Continue folic acid 2mg PO QHS, hydroxyurea 1000mg PO BID - Continue incentive spirometry - Pain control as above Sleep Disturbance/Insomnia - Continue Doxepin 25mg PO QHS Anxiety/BPD - Continue Buspirone 15mg TID GERD - Continue Protonix 40mg PO QHS FEN/GI: regular, 1/2NS @100cc/hr DVT ppx: Lovenox 30mg SQ QAM Code: full code Dispo: med/surg, patient is considering transfer to sick[facility] cell center but dispo plan uncertain at this time Admission and Anticipated Discharge Date Admission Date: July 26, 2020 Supervising Physician Co-Signing Physician Notes Resident Physician Supervision Note: I independently interviewed and examined the patient and verified the amaro history and physical, reviewed labs and image studies and agree with resident Dr. Whaley findings and care plan. Subjective Getting Morphine 6mg IV ~Q2H overnight. Reports that pain is not adequately controlled and is still having severe pain in chest, abdomen, upper and lower extremities. She is able to eat/drink. Had a BM yesterday and is urinating normally. Review of Systems Review of Systems: Denies fever/chills, palpitations, cough, SOB, N/V, rash. Physical Exam Physical Exam: General: A&Ox3. NAD. HEENT: Atraumatic, normocephalic. Pulm: CTAB A&P. -wheezes, -rales, -rhonchi. Symmetrical chest rise. No increase work of breathing. No respiratory distress. Cardiac: RRR, -mrg. Radial pulses intact and symmetrical. Chest: moderate tenderness to palpation of sternum Abdominal: soft, moderately tender throughout but patient reports this has been present for several weeks, non-distended, BS x 4 Extremities: moderate point tenderness to palpation throughout upper and lower extremities Results & Data Results & Data ([facility]) Vital Signs (Past 12 Hours) Vital Signs Temp Pulse Resp BP Pulse Ox 08/15/20 07:30 36.7 C 89 16 109/70 95 Resident Activity Tracking Resident Involvement: Resident Care Provided Care Provided: Adult Hospital Medicine
[2020-08-15] MEDS: DULoxetine HCL 60 MG CAP PO SCH (21:24)
[2020-08-15] MEDS: PANTOprazole 40 MG TAB PO SCH (21:25)
[2020-08-15] MEDS: FOLIC ACID 1 MG TAB PO SCH (21:26)
[2020-08-16] MEDS ORDERED: MoRPHine SULFATE 2 MG/ML CARP ONE (01:34)
[2020-08-16] MEDS ORDERED: MoRPHine SULFATE 4 MG/ML 1 ML CARP\\VIAL ONE (01:34)
[2020-08-16] MEDS: MoRPHine SULFATE 10 MG/ML CARP/VIAL IV PRN ×2 (03:53→08:36)
[2020-08-16] MEDS: DOXEPIN HCL 25 MG CAPSULE PO PRN (03:55)
[2020-08-16] MEDS: SODIUM CHLORIDE 0.45 % 1,000 ML IV SCH ×2 (03:58→14:02)
[2020-08-16 06:59] LABS: Hematocrit (blood only) 27.4 % (37-47); Hemoglobin 9.6 g/dL (12.0-16.0); Mean Corpuscular Hemoglobin 37.5 pg (25-34); Mean Platelet Volume 10.1 fL (7.4-10.4); Nucleated RBC # (auto) 0.05 K/uL (0-0); Platelet Count 380 K/uL (130-400); RDW Coefficient of Variation 19.6 % (11.5-14.5); RDW Standard Deviation 75.9 fL (36.4-46.3); Red Blood Count 2.56 M/uL (4.2-5.4); White Blood Count 4.77 K/uL (4.8-10.8)
[2020-08-16 07:26] LABS: Alanine Aminotransferase 76 U/L (12-78); Albumin Level 3.4 gm/dl (3.4-5.0); Aspartate Aminotransferase 49 U/L (15-37); Blood Urea Nitrogen 11 mg/dl (7-18); Calcium 9.2 mg/dl (8.5-10.1); Carbon Dioxide 31 mmol/L (21-32); Chloride 103 mmol/L (98-107); Creatinine Clr Calc Pharmacy 218.6 ml/min; Est GFR (African American) > 150.0 ml/min; Est GFR (Non-African American) 146.7 ml/min; Glucose 86 mg/dl (70-99); Potassium 3.8 mmol/L (3.5-5.1); Sodium 136 mmol/L (136-145)
[2020-08-16 07:29] LABS: Albumin Globulin Ratio 0.8 (0.9-2); Alkaline Phosphatase 96 U/L (45-117); Bilirubin,Total 1.2 mg/dl (0.2-1); Globulin 4.2 gm/dl (2.5-4.0); Total Protein 7.6 gm/dl (6.4-8.2)
[2020-08-16 07:31] LABS: Basophils # (auto) 0.04 K/uL (0-0.2); Basophils % (auto) 0.8 %; Eosinophils # (auto) 0.15 K/uL (0-0.5); Eosinophils % (auto) 3.1 %; Lymphocytes # (auto) 2.76 K/uL (1.2-3.4); Lymphocytes % (auto) 57.9 %; Macrocytosis Present; Monocytes # (auto) 0.29 K/uL (0.11-0.59); Monocytes % (auto) 6.1 %; Neutrophils # (auto) 1.53 K/uL (1.4-6.5); Neutrophils % (auto) 32.1 %; Target Cells 1+; Toxic Granulation 1+
[2020-08-16] MEDS: busPIRone 15 MG TAB PO SCH ×3 (08:25→20:21)
[2020-08-16] MEDS: SENNA 8.6 MG TAB PO SCH (08:25)
[2020-08-16] MEDS: DICLOFENAC SOD 1% GEL 100 GM TUBE EXT SCH ×4 (08:26→20:22)
[2020-08-16] MEDS: POLYETHYLENE (MIRALAX) 17 GM PACK PO SCH (08:27)
[2020-08-16] MEDS: TAPENTADOL HCL 50 MG TAB PO SCH ×3 (08:33→20:21)
[2020-08-16] MEDS: TAPENTADOL HCL ER 50 MG TABCR PO SCH ×2 (08:33→20:21)
[2020-08-16] MEDS: PREGABALIN 150 MG CAP PO SCH ×2 (08:33→20:21)
[2020-08-16] MEDS: HYDROXYUREA 500 MG CAP PO SCH ×2 (08:37→20:23)
[2020-08-16] MEDS: ENOXAPARIN INJ 30 MG/0.3 ML SYR SQ SCH (08:42)
--- NOTE | 2020-08-16 09:29 | Pain Management Consultation ---
Date of Consultation August 16, 2020 Assessment & Plan (1) Myalgia: (2) Sickle cell anemia: Sickle-cell associated disorders: with unspecified crisis Qualified Code(s): D57.00 - Hb-SS disease with crisis, unspecified (3) Borderline personality disorder: (4) Depression: * Patient with fairly diffuse arthralgia/myalgia complaints with apparent hyperalgesia. We discussed her hyperalgesic response which may partially be opioid driven. We discussed concerns over her amount of IV morphine utilization over the past 24 hours. Will plan to titrate Nucynta ER to 100 mg every 12 hours. * Maintain Nucynta IR 50 mg 3 times daily * Encourage diminished utilization of IV morphine--consider transition to IV hy dromorphone 2 mg every 3-4 hours for short duration for as needed breakthrough pain * Consider involvement with behavioral health * Thank you for allowing us to participate in the care of this patient Active/Remission status: currently active Depression Type: major depressive disorder Major depression episode severity: severe Major depression recurrence: recurrent Psychotic features: without psychotic features Qualified Code(s): F33.2 - Major depressive disorder, recurrent severe without psychotic features History of Present Illness Reason for Consultation: Acute on chronic pain Requesting Physician: Alberto Whaley MD Attending Physician: Caty Serna MD History of Present Illness Ms. Early is a 20-year-old female with history of sickle cell anemia who was admitted on 07/25/2020 with acute pain crises. Patient has continued to complain of significant pain which is fairly diffuse in distribution described as aching and occasionally sharp. She reports pain affects the bilateral upper extremities near the wrists and elbows, anterior chest wall, middle mid and low back, bilateral lower extremities predominantly involving the knees and ankle regions. She denies any radicular pattern to her pain complaints. Her pain is fairly constant minimally improved with her current medication regimen of Nucynta ER 50 mg every 12 hours, Nucynta IR 50 mg 3 times daily and as needed use of IV morphine. Patient has utilized 42 mg of IV morphine in the past 24 hours. The patient was unable to reliably report additive benefit to IV hydromorphone versus IV morphine earlier upon this admission. Patient indicates that her pain is not improving in frequency or severity during this admission. Patient indicates that her pain is typical in location and characteristic as it has been chronically associated with her sickle cell disease. She denies any notable side effects to her current medication regimen except for some mild daytime sedation. Patient denies weaknesses in the upper extremities, footdrop or episodes of falling. She denies any bowel or bladder incontinence. Patient has no further constitutional complaints. Plan of care discussed with Dr. Monica Murguia. Pain Assessment Full Body Front + Back: 1. Left elbow 2. Right elbow 3. Left wrist 4. Right wrist 5. Left hip 6. Right hip 7. Right knee 8. Left knee 9. Anterior chest wall 10. Lumbar region Pain scale - at its best (0-10): 6 Pain scale - at its worst (0-10): 8 Allergies Allergy/AdvReac Type Severity Reaction Status Date / Time No Known Allergies Allergy Verified 07/26/20 00:08 Home Medications Medication Instructions Recorded Confirmed Type folic acid 2 mg PO HS 11/18/19 07/26/20 History buspirone 45 mg PO HS 01/22/20 07/26/20 History pantoprazole 40 mg PO HS 01/22/20 07/26/20 History duloxetine 60 mg PO HS 04/17/20 07/26/20 History hydroxyurea 1,000 mg PO BID 30 Days #120 cap 05/01/20 07/26/20 Rx oxycodone-acetaminophen 1 tab PO TID PRN 05/07/20 07/26/20 History doxepin 25 mg PO HS PRN #10 cap 07/06/20 07/26/20 Rx polyethylene glycol 3350 [Miralax] 17 g PO BID #100 ea 07/06/20 07/26/20 Rx sennosides [Senokot] 17.2 mg PO QAM #60 tab 07/06/20 07/26/20 Rx diclofenac sodium [Voltaren] 4 g TOPICAL QID 07/26/20 07/26/20 History tapentadol [Nucynta] 50 mg PO TID #90 tab 08/10/20 Rx tapentadol [Nucynta] 50 mg PO TID 30 Days #90 tab 08/10/20 Rx Pain History Pain Intensity Pain scale - at its best (0-10): 6 Pain scale - at its worst (0-10): 8 Patient History Medical History (Updated 08/07/20 @ 17:06 by Mayi Coats) Borderline personality disorder Depression Murmur, cardiac Nausea Pneumonia Pseudoseizures Seizure-like activity Sickle cell anemia Sickle cell crisis Suicide gesture Surgical History No pertinent past surgical history Family History Mother Hypertension Father Ulcer Other Family history non-contributory Social History Smoking Status: Never smoker Tobacco Type: E-cigarettes / Vaping Second Hand Exposure: Yes; Hx Alcohol Use: Yes Alcohol type: hard liquor Hx Substance Use: No Preferred Language: Micronesian Communication Ability: Effective Inspector Precision Assembly Required: No Beliefs That Will Affect Care: None marital status: Single Current Living Situation: Other Current Living Situation Comment: apartment with roommates 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 current occupation: [employer] major Feels Safe at Home: Yes Assistive Devices: None Physical Exam Physical Exam: General: Patient sitting quietly in exam room in no acute distress. Speech and thought process appropriate. Mood and affect flat and slightly withdrawn. Very soft-spoken.. Cognition intact. Head: Normocephalic and atraumatic. ENT: No evidence of nasal or oral mucosal lesions. Mucous membranes are moist. Eyes: Pupils equal round reactive to light. Neck: Supple without adenopathy and full range of motion. Generalized tenderness in the paravertebral and trapezius musculature. Spurling's maneuver negative. Chest: Patient is tender to palpation of the costosternal junction. Abdomen: Soft and nondistended. No organomegaly. Bowel sounds active. Some generalized tenderness to palpation which is nonfocal. Upper extremities: Fairly diffuse myofascial pain. Patient is tender over the lateral epicondyle bilaterally. There is no appreciable edema or warmth of the peripheral joints. Strength testing 5/5 and equal. Slight hyperalgesic response. Back/spine: Generalized tenderness over the lumbosacral region which is nonspecific to the midline, facet joint or SI joint region. Fairly diffuse paravertebral tenderness in the thoracolumbar junction extending into the quadratus lumborum. Slight hyperalgesia response throughout the thoracolumbar region. Limited range of motion all planes. Lower extremities: Diffuse generalized myofascial tenderness. Nontender with range of motion of the knee or hip. Straight leg raising was negative. Plantar and dorsi flexion 5/5 and equal bilaterally. Slight hyperalgesic response. Neurologic: Cranial nerves grossly intact. Ambulatory function not witnessed.
--- NOTE | 2020-08-16 10:30 | Hospitalist Progress Note ---
Date of Service August 16, 2020 Assessment & Plan (1) Chronic pain: Patient is a 20-year-old female well known to our service with PMHx. sickle cell and chronic pain, admitted on 07/26/2020 for acute vaso-occlusive sickle cell crisis which seems to be resolving at this point, although now has persistent pain that is not controlled with IV pain medications. Pain management consulted on 08/16 for further recs. Acute on Chronic Pain Possible sickle cell vaso-occlusive pain vs narcotic hyperalgesia vs other chronic pain physiology. Not adequately controlled with current pain regimen. - Pain management consulted - appreciate recs - Continue Pregabalin 150mg BID and Cymbalta 60mg PO QHS - Continue Tapentadol 50mg PO TID and increased ER to 100mg PO Q12H - will continue to up-titrate per pain recs - consult behavioral health - PRN regimen: - Morphine 4mg IV Q2H (moderate pain), Dilaudid 2mg IV Q4H (severe pain); encouraged wean - Voltaren gel PRN - can add Tylenol 1000mg IV PRN (contact provider for order) - Bowel Regimen with scheduled Miralax/Senna in addition to PRN Miralax/Docusate - Per [facility] recs, consider referral to [facility] [place] for chronic exchange transfusions on outpatient basis to help with pain Vaso-occlusive sickle cell crisis, resolving S/P 2 units pRBC transfusion, Hgb 9.6 today. CXR without evidence of ACS. - Continue folic acid 2mg PO QHS, hydroxyurea 1000mg PO BID - Continue incentive spirometry - Pain control as above Sleep Disturbance/Insomnia - Continue Doxepin 25mg PO QHS Anxiety/BPD - Continue Buspirone 15mg TID GERD - Continue Protonix 40mg PO QHS FEN/GI: regular, 1/2NS @100cc/hr DVT ppx: Lovenox 30mg SQ QAM Code: full code Dispo: med/surg Admission and Anticipated Discharge Date Admission Date: July 26, 2020 Supervising Physician Co-Signing Physician Notes Resident Physician Supervision Note: I independently interviewed and examined the patient and verified the amaro history and physical, reviewed labs and image studies and agree with resident Dr. Whaley findings and care plan. Subjective Continues to get Morphine 6mg IV ~Q2H overnight. Reports that pain is not adequately controlled and is still having severe pain in chest, abdomen, upper and lower extremities. She is able to eat/drink. Had another BM yesterday and is urinating normally. Review of Systems Review of Systems: Denies fever/chills, palpitations, cough, SOB, N/V, rash. Physical Exam Physical Exam: General: A&Ox3. NAD. HEENT: Atraumatic, normocephalic. Pulm: CTAB A&P. -wheezes, -rales, -rhonchi. Symmetrical chest rise. No increase work of breathing. No respiratory distress. Cardiac: RRR, -mrg. Radial pulses intact and symmetrical. Abdominal: soft, moderately tender throughout but patient reports this has been present for several weeks, non-distended, BS x 4 Extremities: moderate point tenderness to palpation throughout upper and lower extremities Results & Data Results & [facility] ([facility]) Vital Signs (Past 12 Hours) Vital Signs Temp Pulse Resp BP BP Pulse Ox 08/16/20 07:10 36.7 C 92 H 18 94/57 L 98 08/15/20 23:35 37.1 C 91 H 16 115/81 98 Resident Activity Tracking Resident Involvement: Resident Care Provided Care Provided: Adult Hospital Medicine
[2020-08-16] MEDS: CEROVITE ADV FORMULA TAB PO SCH (10:59)
[2020-08-16] MEDS: HYDROmorphone INJ 2 MG/ML SYR/VIAL IV PRN ×3 (10:59→20:18)
[2020-08-16] MEDS: MoRPHine SULFATE 4 MG/ML 1 ML CARP\\VIAL IV PRN ×2 (14:11→22:30)
[2020-08-16] MEDS: DULoxetine HCL 60 MG CAP PO SCH (20:21)
[2020-08-16] MEDS: FOLIC ACID 1 MG TAB PO SCH (20:22)
[2020-08-16] MEDS: PANTOprazole 40 MG TAB PO SCH (20:22)
[2020-08-17] MEDS: SODIUM CHLORIDE 0.45 % 1,000 ML IV SCH ×3 (00:13→19:30)
[2020-08-17] MEDS: HYDROmorphone INJ 2 MG/ML SYR/VIAL IV PRN ×6 (00:16→23:08)
[2020-08-17] MEDS: DOXEPIN HCL 25 MG CAPSULE PO PRN (00:19)
[2020-08-17] MEDS: MoRPHine SULFATE 4 MG/ML 1 ML CARP\\VIAL IV PRN (02:37)
[2020-08-17 07:05] LABS: Hematocrit (blood only) 27.8 % (37-47); Hemoglobin 9.6 g/dL (12.0-16.0); Mean Corpuscular Hemoglobin 36.4 pg (25-34); Mean Corpuscular Hgb Conc 34.5 g/dL (32-36); Mean Corpuscular Volume 105.3 fL (80-100); Mean Platelet Volume 9.6 fL (7.4-10.4); Nucleated RBC # (auto) 0.09 K/uL (0-0); Nucleated RBC % (auto) 1.6 %; Platelet Count 377 K/uL (130-400); RDW Coefficient of Variation 19.8 % (11.5-14.5); RDW Standard Deviation 74.4 fL (36.4-46.3); Red Blood Count 2.64 M/uL (4.2-5.4); White Blood Count 5.28 K/uL (4.8-10.8)
[2020-08-17 07:38] LABS: Alanine Aminotransferase 63 U/L (12-78); Albumin Level 3.4 gm/dl (3.4-5.0); Aspartate Aminotransferase 38 U/L (15-37); Blood Urea Nitrogen 10 mg/dl (7-18); Calcium 9.2 mg/dl (8.5-10.1); Carbon Dioxide 28 mmol/L (21-32); Chloride 104 mmol/L (98-107); Creatinine Clr Calc Pharmacy 203.7 ml/min; Est GFR (African American) > 150.0 ml/min; Est GFR (Non-African American) 143.3 ml/min; Glucose 91 mg/dl (70-99); Potassium 3.9 mmol/L (3.5-5.1); Sodium 136 mmol/L (136-145)
[2020-08-17 07:41] LABS: Albumin Globulin Ratio 0.8 (0.9-2); Alkaline Phosphatase 93 U/L (45-117); Bilirubin,Total 0.7 mg/dl (0.2-1); Total Protein 7.4 gm/dl (6.4-8.2)
[2020-08-17] MEDS: ENOXAPARIN INJ 30 MG/0.3 ML SYR SQ SCH (08:02)
[2020-08-17] MEDS: SENNA 8.6 MG TAB PO SCH (08:03)
[2020-08-17] MEDS: CEROVITE ADV FORMULA TAB PO SCH (08:03)
[2020-08-17] MEDS: TAPENTADOL HCL 50 MG TAB PO SCH ×3 (08:03→20:51)
[2020-08-17] MEDS: POLYETHYLENE (MIRALAX) 17 GM PACK PO SCH (08:03)
[2020-08-17] MEDS: TAPENTADOL HCL ER 50 MG TABCR PO SCH ×2 (08:04→20:51)
[2020-08-17] MEDS: DICLOFENAC SOD 1% GEL 100 GM TUBE EXT SCH ×4 (08:04→20:30)
[2020-08-17] MEDS: busPIRone 15 MG TAB PO SCH ×3 (08:04→20:30)
[2020-08-17] MEDS: PREGABALIN 150 MG CAP PO SCH ×2 (08:04→20:33)
[2020-08-17] MEDS: HYDROXYUREA 500 MG CAP PO SCH ×2 (08:04→20:31)
[2020-08-17 08:58] LABS: Basophils # (auto) 0.03 K/uL (0-0.2); Basophils % (auto) 0.6 %; Eosinophils # (auto) 0.17 K/uL (0-0.5); Eosinophils % (auto) 3.2 %; Lymphocytes % (auto) 58.7 %; Monocytes # (auto) 0.25 K/uL (0.11-0.59); Monocytes % (auto) 4.7 %; Neutrophils # (auto) 1.73 K/uL (1.4-6.5); Neutrophils % (auto) 32.8 %; Target Cells 1+
--- NOTE | 2020-08-17 10:02 | Hospitalist Progress Note ---
Date of Service August 17, 2020 Assessment & Plan (1) Chronic pain: Patient is a 20-year-old female well known to our service with PMHx. sickle cell and chronic pain, admitted on 07/26/2020 for acute vaso-occlusive sickle cell crisis which seems to be resolving at this point, although now has persistent pain that is not controlled with IV pain medications. Pain management consulted on 08/16 for further recs. Acute on Chronic Pain Possible sickle cell vaso-occlusive pain vs narcotic hyperalgesia vs other chronic pain physiology. Not adequately controlled with current pain regimen. - At baseline on Duloxetine, percocet, nucynta 50mgs tid. - Pain management consulted - appreciate recs - Continue Pregabalin 150mg BID and Cymbalta 60mg PO QHS - Continue Tapentadol 50mg PO TID and ER 100mg PO Q12H - will continue to up- titrate per pain recs - PRN regimen: - Dilaudid 2mg IV Q4H (severe pain); encouraged wean - d/c morphine - Voltaren gel PRN - can add Tylenol 1000mg IV PRN (contact provider for order) - Bowel Regimen with scheduled Miralax/Senna in addition to PRN Miralax/Docusate - Per [facility] recs, consider referral to [facility] [place] vs [place] for chronic exchange transfusions on outpatient basis to help with pain Vaso-occlusive sickle cell crisis, resolving S/P 2 units pRBC transfusion, Hgb 9.6 today. CXR without evidence of ACS. - Continue folic acid 2mg PO QHS, hydroxyurea 1000mg PO BID - Continue incentive spirometry - Pain control as above Sleep Disturbance/Insomnia - Continue Doxepin 25mg PO QHS Anxiety/BPD - Continue Duloxetine and Buspirone 15mg TID GERD - Continue Protonix 40mg PO QHS FEN/GI: regular, 1/2NS @100cc/hr DVT ppx: Lovenox 30mg SQ QAM Code: full code Dispo: med/surg Admission and Anticipated Discharge Date Admission Date: July 26, 2020 Supervising Physician Co-Signing Physician Notes Resident Physician Supervision Note: I independently interviewed and examined the patient and verified the amaro history and physical, reviewed labs and image studies and agree with resident Dr. Whaley findings and care plan. Subjective Received Dilaudid 2mg IV Q4H overnight but decreased Morphine use to 4mg ~Q4-6H. Reports that pain is decreased with Dilaudid but still has moderate pain in chest, back, abdomen, upper and lower extremities. She is able to eat/drink. Review of Systems Review of Systems: Denies fever/chills, palpitations, cough, SOB, N/V, rash. Physical Exam Physical Exam: General: A&Ox3. NAD. HEENT: Atraumatic, normocephalic. Pulm: CTAB A&P. -wheezes, -rales, -rhonchi. Symmetrical chest rise. No increase work of breathing. No respiratory distress. Cardiac: RRR, -mrg. Radial pulses intact and symmetrical. Abdominal: soft, moderately tender throughout but is chronic, non-distended, BS x 4 Extremities: moderate point tenderness to palpation throughout upper and lower extremities Results & Data Results [facility] ([facility]) Vital Signs (Past 12 Hours) Vital Signs Temp Pulse Resp BP Pulse Ox 08/17/20 07:23 36.8 C 98 H 16 99/62 L 96 08/16/20 22:20 36.9 C 98 H 16 107/72 98 Resident Activity Tracking Resident Involvement: Resident Care Provided Care Provided: Adult Hospital Medicine
[2020-08-17] MEDS ORDERED: HYDROmorphone INJ 2 MG/ML SYR/VIAL IV PRN (14:12)
[2020-08-17] MEDS: FOLIC ACID 1 MG TAB PO SCH (20:30)
[2020-08-17] MEDS: DULoxetine HCL 60 MG CAP PO SCH (20:30)
[2020-08-17] MEDS: PANTOprazole 40 MG TAB PO SCH (20:30)
[2020-08-18] MEDS: hydrOXYzine HCl 25 MG TAB PO PRN (02:08)
[2020-08-18] MEDS: HYDROmorphone INJ 2 MG/ML SYR/VIAL IV PRN ×5 (02:32→20:18)
[2020-08-18] MEDS: diphenhydrAMINE Capsule 25 MG CAP PO PRN (04:24)
[2020-08-18] MEDS: SODIUM CHLORIDE 0.45 % 1,000 ML IV SCH ×2 (04:24→15:01)
[2020-08-18] MEDS: PREGABALIN 150 MG CAP PO SCH ×2 (08:24→22:10)
[2020-08-18] MEDS: busPIRone 15 MG TAB PO SCH ×3 (08:25→22:09)
[2020-08-18] MEDS: SENNA 8.6 MG TAB PO SCH (08:25)
[2020-08-18] MEDS: HYDROXYUREA 500 MG CAP PO SCH ×2 (08:25→22:10)
[2020-08-18] MEDS: CEROVITE ADV FORMULA TAB PO SCH (08:25)
[2020-08-18] MEDS: DICLOFENAC SOD 1% GEL 100 GM TUBE EXT SCH ×4 (08:26→22:09)
[2020-08-18] MEDS: POLYETHYLENE (MIRALAX) 17 GM PACK PO SCH (08:26)
[2020-08-18] MEDS: ENOXAPARIN INJ 30 MG/0.3 ML SYR SQ SCH (08:26)
[2020-08-18] MEDS: TAPENTADOL HCL 50 MG TAB PO SCH ×3 (08:36→22:10)
[2020-08-18] MEDS: TAPENTADOL HCL ER 50 MG TABCR PO SCH ×2 (08:37→22:10)
[2020-08-18 08:41] LABS: Hematocrit (blood only) 26.3 % (37-47); Hemoglobin 9.2 g/dL (12.0-16.0); Mean Corpuscular Hemoglobin 37.1 pg (25-34); Mean Platelet Volume 9.5 fL (7.4-10.4); Nucleated RBC # (auto) 0.18 K/uL (0-0); Nucleated RBC % (auto) 3.2 %; Platelet Count 396 K/uL (130-400); RDW Coefficient of Variation 19.8 % (11.5-14.5); RDW Standard Deviation 76.1 fL (36.4-46.3); Red Blood Count 2.48 M/uL (4.2-5.4); White Blood Count 5.65 K/uL (4.8-10.8)
[2020-08-18 09:05] LABS: BUN Creatinine Ratio 15.7 (10-20); Blood Urea Nitrogen 6 mg/dl (7-18); Calcium 8.9 mg/dl (8.5-10.1); Carbon Dioxide 28 mmol/L (21-32); Chloride 104 mmol/L (98-107); Creatinine Clr Calc Pharmacy 224.1 ml/min; Est GFR (African American) > 150.0 ml/min; Est GFR (Non-African American) 147.8 ml/min; Glucose 94 mg/dl (70-99); Potassium 3.7 mmol/L (3.5-5.1); Sodium 137 mmol/L (136-145)
[2020-08-18 09:13] LABS: Anisocytosis Present; Basophils # (auto) 0.01 K/uL (0-0.2); Basophils % (auto) 0.2 %; Eosinophils # (auto) 0.13 K/uL (0-0.5); Eosinophils % (auto) 2.3 %; Lymphocytes # (auto) 3.26 K/uL (1.2-3.4); Lymphocytes % (auto) 57.7 %; Monocytes # (auto) 0.29 K/uL (0.11-0.59); Monocytes % (auto) 5.1 %; Neutrophils # (auto) 1.96 K/uL (1.4-6.5); Neutrophils % (auto) 34.7 %; Poikilocytosis Present; Target Cells 2+
--- NOTE | 2020-08-18 13:09 | Hospitalist Progress Note ---
Date of Service August 18, 2020 Assessment & Plan (1) Chronic pain: Patient is a 20-year-old female well known to our service with PMHx. sickle cell and chronic pain, admitted on 07/26/2020 for acute vaso-occlusive sickle cell crisis which seems to be resolving at this point, although now has persistent pain that is not controlled with IV pain medications. Pain management consulted on 08/16 for further recs. Acute on Chronic Pain Possible sickle cell vaso-occlusive pain vs narcotic hyperalgesia vs other chronic pain physiology. Not adequately controlled with current pain regimen. - Pain management consulted - appreciate recs - Continue Pregabalin 150mg BID and Cymbalta 60mg PO QHS - Continue Tapentadol 50mg PO TID and ER 100mg PO Q12H - will continue to up- titrate per pain recs (likely tomorrow) - PRN regimen: - Dilaudid 2mg IV Q4H (severe pain); encouraged wean - Voltaren gel PRN - can add Tylenol 1000mg IV PRN (contact provider for order) - Bowel Regimen with scheduled Miralax/Senna in addition to PRN Miralax/Docusate - Per [facility] recs, [place] [facility] [place] chronic exchange transfusions on outpatient basis to help with pain Vaso-occlusive sickle cell crisis, resolving S/P 2 units pRBC transfusion, Hgb 9.6 today. CXR without evidence of ACS. - Continue folic acid 2mg PO QHS, hydroxyurea 1000mg PO BID - Continue incentive spirometry - Pain control as above Sleep Disturbance/Insomnia - Continue Doxepin 25mg PO QHS Anxiety/BPD - Continue Duloxetine and Buspirone 15mg TID GERD - Continue Protonix 40mg PO QHS FEN/GI: regular, 1/2NS @100cc/hr DVT ppx: Lovenox 30mg SQ QAM Code: full code Dispo: med/surg Admission and Anticipated Discharge Date Admission Date: July 26, 2020 Supervising Physician Co-Signing Physician Notes Resident Physician Supervision Note: I independently interviewed and examined the patient and verified the amaro history and physical, reviewed labs and image studies and agree with resident Dr. Whaley findings and care plan. Subjective Continuing to receive Dilaudid 2mg IV Q4H. Also received Benadryl x1 and Hydroxyzine x1 overnight. Patient reports that pain is decently controlled with current regimen. No other complaints today. Review of Systems Review of Systems: Denies fever/chills, palpitations, cough, SOB, N/V, rash. Physical Exam Physical Exam: General: A&Ox3. NAD. HEENT: Atraumatic, normocephalic. Pulm: CTAB A&P. -wheezes, -rales, -rhonchi. Symmetrical chest rise. No increase work of breathing. No respiratory distress. Cardiac: RRR, -mrg. Radial pulses intact and symmetrical. Abdominal: soft, moderately tender throughout but is chronic, non-distended, BS x 4 Extremities: moderate point tenderness to palpation throughout upper and lower extremities Results & Data Results & Data ([facility]) Vital Signs (Past 12 Hours) Vital Signs Temp Pulse Resp BP Pulse Ox 08/18/20 07:29 36.9 C 85 16 98/59 L 96 Resident Activity Tracking Resident Involvement: Resident Care Provided Care Provided: Adult Hospital Medicine
[2020-08-18] MEDS: FOLIC ACID 1 MG TAB PO SCH (22:09)
[2020-08-18] MEDS: DULoxetine HCL 60 MG CAP PO SCH (22:09)
[2020-08-18] MEDS: PANTOprazole 40 MG TAB PO SCH (22:10)
[2020-08-19] MEDS: SODIUM CHLORIDE 0.45 % 1,000 ML IV SCH ×3 (00:21→21:18)
[2020-08-19] MEDS: HYDROmorphone INJ 2 MG/ML SYR/VIAL IV PRN ×6 (00:21→22:16)
[2020-08-19] MEDS: DOXEPIN HCL 25 MG CAPSULE PO PRN (06:15)
[2020-08-19 07:46] LABS: Hemoglobin 9.4 g/dL (12.0-16.0); Mean Corpuscular Hemoglobin 36.2 pg (25-34); Mean Corpuscular Hgb Conc 34.8 g/dL (32-36); Mean Corpuscular Volume 103.8 fL (80-100); Mean Platelet Volume 9.5 fL (7.4-10.4); Nucleated RBC # (auto) 0.27 K/uL (0-0); Nucleated RBC % (auto) 4.6 %; Platelet Count 397 K/uL (130-400); RDW Coefficient of Variation 20.6 % (11.5-14.5); RDW Standard Deviation 76.8 fL (36.4-46.3); White Blood Count 5.91 K/uL (4.8-10.8)
[2020-08-19 08:02] LABS: Anisocytosis Present; Basophils # (auto) 0.02 K/uL (0-0.2); Basophils % (auto) 0.3 %; Eosinophils # (auto) 0.13 K/uL (0-0.5); Eosinophils % (auto) 2.2 %; Howell-Jolly Bodies 1+; Immature Granulocytes # (auto) 0.01 K/uL (0.00-0.02); Immature Granulocytes % (auto) 0.2 %; Lymphocytes # (auto) 2.96 K/uL (1.2-3.4); Lymphocytes % (auto) 50.1 %; Monocytes # (auto) 0.48 K/uL (0.11-0.59); Monocytes % (auto) 8.1 %; Neutrophils # (auto) 2.31 K/uL (1.4-6.5); Neutrophils % (auto) 39.1 %; Polychromasia 1+; Target Cells 1+
[2020-08-19 08:04] LABS: BUN Creatinine Ratio 21.2 (10-20); Blood Urea Nitrogen 8 mg/dl (7-18); Calcium 9.2 mg/dl (8.5-10.1); Carbon Dioxide 25 mmol/L (21-32); Chloride 104 mmol/L (98-107); Creatinine Clr Calc Pharmacy 229.8 ml/min; Est GFR (African American) > 150.0 ml/min; Est GFR (Non-African American) 149.1 ml/min; Glucose 89 mg/dl (70-99); Potassium 3.7 mmol/L (3.5-5.1); Sodium 136 mmol/L (136-145)
[2020-08-19] MEDS: TAPENTADOL HCL ER 50 MG TABCR PO SCH ×2 (08:40→21:17)
[2020-08-19] MEDS: PREGABALIN 150 MG CAP PO SCH ×2 (08:40→21:17)
[2020-08-19] MEDS: TAPENTADOL HCL 50 MG TAB PO SCH ×3 (08:40→21:17)
[2020-08-19] MEDS: POLYETHYLENE (MIRALAX) 17 GM PACK PO SCH (08:41)
[2020-08-19] MEDS: ENOXAPARIN INJ 30 MG/0.3 ML SYR SQ SCH (08:41)
[2020-08-19] MEDS: SENNA 8.6 MG TAB PO SCH (08:42)
[2020-08-19] MEDS: CEROVITE ADV FORMULA TAB PO SCH (08:42)
[2020-08-19] MEDS: HYDROXYUREA 500 MG CAP PO SCH ×2 (08:42→21:16)
[2020-08-19] MEDS: busPIRone 15 MG TAB PO SCH ×3 (08:42→21:16)
[2020-08-19] MEDS: DICLOFENAC SOD 1% GEL 100 GM TUBE EXT SCH ×4 (08:43→21:17)
--- NOTE | 2020-08-19 19:19 | Hospitalist Progress Note ---
Date of Service August 19, 2020 Assessment & Plan Admission and Anticipated Discharge Date Admission Date: July 26, 2020 Patient is a 20-year-old female well known to our service with PMHx. sickle cell and chronic pain, admitted on 07/26/2020 for acute vaso-occlusive sickle cell crisis which seems to be resolving at this point, although now has persistent pain that is not controlled with IV pain medications. Pain management consulted on 08/16 for further recs. Acute on Chronic Pain Possible sickle cell vaso-occlusive pain vs narcotic hyperalgesia vs other chronic pain physiology. Not adequately controlled with current pain regimen. - Pain management consulted - appreciate recs - Continue Pregabalin 150mg BID and Cymbalta 60mg PO QHS - Continue Tapentadol 50mg PO TID and ER 150mg PO Q12H - will continue to up- titrate per pain recs - PRN regimen: - Dilaudid decreased to 1.5 mg IV Q4H (severe pain); encouraged wean - Voltaren gel PRN - can add Tylenol 1000mg IV PRN (contact provider for order) - Bowel Regimen with scheduled Miralax/Senna in addition to PRN Miralax/Docusate - Per [facility] recs, consider referral [place] [facility] [place] for chronic exchange transfusions on outpatient basis to help with pain Vaso-occlusive sickle cell crisis, resolving S/P 2 units pRBC transfusion, Hgb 9.4 today. CXR without evidence of ACS. - Continue folic acid 2mg PO QHS, hydroxyurea 1000mg PO BID - Continue incentive spirometry - Pain control as above Sleep Disturbance/Insomnia - Continue Doxepin 25mg PO QHS Anxiety/BPD - Continue Duloxetine and Buspirone 15mg TID GERD - Continue Protonix 40mg PO QHS FEN/GI: regular, 1/2NS @100cc/hr DVT ppx: Lovenox 30mg SQ QAM Code: full code Dispo: med/surg Supervising Physician Co-Signing Physician Notes Resident Physician Supervision Note: I independently interviewed and examined the patient and verified the amaro history and physical, reviewed labs and image studies and agree with resident Dr. Tan findings and care plan. Subjective Donta Early was doing okay this morning, she said that she was still having pain but it was a little improved over her admission. Nursing notified me that she did not take her medication the night prior. Review of Systems Review of Systems: Unobtainable due to reduced consciousness (limited as she fell asleep during my ROS) - denies shortness of breath - admits continued sternal pain similar to prior Physical Exam Constitutional: well developed and well nourished; no acute distress and not ill appearing Eyes: PERRL, conjunctivae normal, anicteric sclerae ENMT: external ear and nose normal, oropharynx normal Neck: normal visual inspection Respiratory: normal respiratory effort, lungs clear to auscultation Cardiovascular: RRR, no murmur, no edema Gastrointestinal (Abdomen): normal bowel sounds, soft, nontender, no hepatosplenomegaly Skin: no rashes, warm and dry Neurologic: no focal motor deficits Psychiatric: Orientation: alert Eye Contact: + poor eye contact Affect: + flat affect Results & Data Results & Data ([place]) Vital Signs (Past 12 Hours) Vital Signs Temp Pulse Resp BP Pulse Ox 08/19/20 16:39 37 C 82 16 99/61 L 97 08/19/20 07:44 37.1 C 78 16 113/80 91 CBC Results Results Complete Blood Count Results: RBC 2.62 M/uL (4.2-5.4) L 08/20/20 WBC 4.93 K/uL (4.8-10.8) 08/20/20 Hgb 9.7 g/dL (12.0-16.0) L 08/20/20 Hct 27.7 % (37-47) L 08/20/20 Plt Count 388 K/uL (130-400) 08/20/20 Chemistry (BMP) Results BMP Results: Sodium 136 mmol/L (136-145) 08/19/20 Potassium 3.7 mmol/L (3.5-5.1) 08/19/20 Chloride 104 mmol/L (98-107) 08/19/20 BUN 8 mg/dl (7-18) 08/19/20 Creatinine 0.39 mg/dl (0.6-1.2) L 08/19/20 Glucose 89 mg/dl (70-99) 08/19/20 Resident Activity Tracking Resident Involvement: Resident Care Provided Care Provided: [facility]
[2020-08-19] MEDS: PANTOprazole 40 MG TAB PO SCH (21:16)
[2020-08-19] MEDS: FOLIC ACID 1 MG TAB PO SCH (21:16)
[2020-08-19] MEDS: DULoxetine HCL 60 MG CAP PO SCH (21:17)
[2020-08-20] MEDS: HYDROmorphone INJ 2 MG/ML SYR/VIAL IV PRN ×3 (02:16→10:39)
[2020-08-20 06:27] LABS: Hematocrit (blood only) 27.7 % (37-47); Hemoglobin 9.7 g/dL (12.0-16.0); Mean Corpuscular Volume 105.7 fL (80-100); Mean Platelet Volume 9.5 fL (7.4-10.4); Nucleated RBC # (auto) 0.25 K/uL (0-0); Nucleated RBC % (auto) 5.1 %; Platelet Count 388 K/uL (130-400); RDW Coefficient of Variation 20.6 % (11.5-14.5); RDW Standard Deviation 78.4 fL (36.4-46.3); Red Blood Count 2.62 M/uL (4.2-5.4); White Blood Count 4.93 K/uL (4.8-10.8)
[2020-08-20 07:29] LABS: Anisocytosis Present; Basophils # (auto) 0.01 K/uL (0-0.2); Basophils % (auto) 0.2 %; Eosinophils # (auto) 0.15 K/uL (0-0.5); Immature Granulocytes # (auto) 0.01 K/uL (0.00-0.02); Immature Granulocytes % (auto) 0.2 %; Lymphocytes # (auto) 2.85 K/uL (1.2-3.4); Lymphocytes % (auto) 57.8 %; Monocytes # (auto) 0.41 K/uL (0.11-0.59); Monocytes % (auto) 8.3 %; Neutrophils % (auto) 30.5 %; Polychromasia 1+; Target Cells 1+; Tear Drop Cells 1+
[2020-08-20] MEDS: busPIRone 15 MG TAB PO SCH ×3 (08:27→22:11)
[2020-08-20] MEDS: SODIUM CHLORIDE 0.45 % 1,000 ML IV SCH ×2 (08:27→18:12)
[2020-08-20] MEDS: DICLOFENAC SOD 1% GEL 100 GM TUBE EXT SCH ×4 (08:28→22:12)
[2020-08-20] MEDS: ENOXAPARIN INJ 30 MG/0.3 ML SYR SQ SCH (08:28)
[2020-08-20] MEDS: TAPENTADOL HCL ER 50 MG TABCR PO SCH ×2 (08:29→22:11)
[2020-08-20] MEDS: TAPENTADOL HCL 50 MG TAB PO SCH ×3 (08:29→22:11)
[2020-08-20] MEDS: PREGABALIN 150 MG CAP PO SCH ×2 (08:29→22:11)
[2020-08-20] MEDS: POLYETHYLENE (MIRALAX) 17 GM PACK PO SCH (08:30)
[2020-08-20] MEDS: HYDROXYUREA 500 MG CAP PO SCH ×2 (08:31→22:13)
[2020-08-20] MEDS: SENNA 8.6 MG TAB PO SCH (08:32)
[2020-08-20] MEDS: CEROVITE ADV FORMULA TAB PO SCH (08:32)
--- NOTE | 2020-08-20 10:48 | Hospitalist Progress Note ---
Date of Service August 20, 2020 Assessment & Plan (1) Chronic pain: Patient is a 20-year-old female well known to our service with PMHx. sickle cell and chronic pain, admitted on 07/26/2020 for acute vaso-occlusive sickle cell crisis which seems to be resolving at this point, although now has persistent pain that is not controlled with IV pain medications. Pain management consulted on 08/16 for further recs. Acute on Chronic Pain Possible sickle cell vaso-occlusive pain vs narcotic hyperalgesia vs other chronic pain physiology. Not adequately controlled with current pain regimen. Hoping to wean IV narcotic pain meds while optimizing Tapentadol dosing. - Pain management consulted - appreciate recs - Continue Pregabalin 150mg BID and Cymbalta 60mg PO QHS - Continue Tapentadol 50mg PO TID and ER 150mg PO Q12H - will continue to up- titrate per pain recs (titrate Q3days - next on 08/22) - PRN regimen: - changed Dilaudid to 1mg IV Q3H (~10% decrease) - Voltaren gel PRN - can add Tylenol 1000mg IV PRN (contact provider for order) - Bowel Regimen with scheduled Miralax/Senna in addition to PRN Miralax/Docusate - Per [facility] recs, [place] [facility] [place] chronic exchange transfusions on outpatient basis to help with pain Vaso-occlusive sickle cell crisis, resolving S/P 2 units pRBC transfusion, Hgb 9.6 today. CXR without evidence of ACS. - Continue folic acid 2mg PO QHS, hydroxyurea 1000mg PO BID - Continue incentive spirometry - Pain control as above Sleep Disturbance/Insomnia - Continue Doxepin 25mg PO QHS - PRN Benadryl Anxiety/BPD - Continue Duloxetine and Buspirone 15mg TID GERD - Continue Protonix 40mg PO QHS FEN/GI: regular, 1/2NS @100cc/hr DVT ppx: Lovenox 30mg SQ QAM Code: full code Dispo: med/surg Admission and Anticipated Discharge Date Admission Date: July 26, 2020 Supervising Physician Co-Signing Physician Notes Resident Physician Supervision Note: I independently interviewed and examined the patient and verified the amaro history and physical, reviewed labs and image studies and agree with resident Dr. Whaley findings and care plan. Subjective Getting Dilaudid 2mg IV Q4H. Patient wants more frequent dosing of Dilaudid - we discussed options at length this morning. Patient reports persistent generalized pain. Eating/drinking well. Review of Systems Review of Systems: Denies fever/chills, palpitations, SOB, N/V, abdominal pain, rash. Physical Exam Physical Exam: General: A&Ox3. NAD. HEENT: Atraumatic, normocephalic. Pulm: CTAB A&P. -wheezes, -rales, -rhonchi. Symmetrical chest rise. No increase work of breathing. No respiratory distress. Cardiac: RRR, -mrg. Radial pulses intact and symmetrical. Abdominal: soft, moderately tender throughout but is chronic, non-distended, BS x 4 Extremities: moderate point tenderness to palpation throughout upper and lower extremities Results & Data Results & Data ([facility]) Vital Signs (Past 12 Hours) Vital Signs Temp Pulse Resp BP Pulse Ox 08/20/20 08:10 36.8 C 79 16 96/56 L 98 08/19/20 23:10 36.6 C 82 16 113/73 97 Resident Activity Tracking Resident Involvement: Resident Care Provided Care Provided: Adult Hospital Medicine
[2020-08-20] MEDS: HYDROmorphone INJ 1 MG/ML SYRINGE IV PRN ×3 (14:41→22:13)
[2020-08-20] MEDS: FOLIC ACID 1 MG TAB PO SCH (22:11)
[2020-08-20] MEDS: DULoxetine HCL 60 MG CAP PO SCH (22:11)
[2020-08-20] MEDS: PANTOprazole 40 MG TAB PO SCH (22:11)
[2020-08-21] MEDS: HYDROmorphone INJ 1 MG/ML SYRINGE IV PRN ×6 (01:23→22:37)
[2020-08-21] MEDS: SODIUM CHLORIDE 0.45 % 1,000 ML IV SCH ×2 (04:07→15:50)
[2020-08-21 07:48] LABS: Basophils # (auto) 0.01 K/uL (0-0.2); Basophils % (auto) 0.2 %; Eosinophils % (auto) 1.8 %; Hemoglobin 9.9 g/dL (12.0-16.0); Immature Granulocytes # (auto) 0.01 K/uL (0.00-0.02); Immature Granulocytes % (auto) 0.2 %; Lymphocytes # (auto) 2.77 K/uL (1.2-3.4); Lymphocytes % (auto) 48.6 %; Mean Corpuscular Hemoglobin 37.1 pg (25-34); Mean Corpuscular Hgb Conc 35.4 g/dL (32-36); Mean Corpuscular Volume 104.9 fL (80-100); Mean Platelet Volume 9.2 fL (7.4-10.4); Monocytes # (auto) 0.33 K/uL (0.11-0.59); Monocytes % (auto) 5.8 %; Neutrophils # (auto) 2.48 K/uL (1.4-6.5); Neutrophils % (auto) 43.4 %; Nucleated RBC # (auto) 0.13 K/uL (0-0); Nucleated RBC % (auto) 2.3 %; Platelet Count 351 K/uL (130-400); RDW Coefficient of Variation 20.8 % (11.5-14.5); Red Blood Count 2.67 M/uL (4.2-5.4)
[2020-08-21 08:05] LABS: Anisocytosis Present; Polychromasia 1+; Target Cells 2+
[2020-08-21] MEDS: PANTOprazole 40 MG TAB PO SCH (09:25)
[2020-08-21] MEDS: ENOXAPARIN INJ 30 MG/0.3 ML SYR SQ SCH (09:25)
[2020-08-21] MEDS: CEROVITE ADV FORMULA TAB PO SCH (09:25)
[2020-08-21] MEDS: busPIRone 15 MG TAB PO SCH ×3 (09:26→22:07)
[2020-08-21] MEDS: SENNA 8.6 MG TAB PO SCH (09:26)
[2020-08-21] MEDS: HYDROXYUREA 500 MG CAP PO SCH ×2 (09:26→22:10)
[2020-08-21] MEDS: PREGABALIN 150 MG CAP PO SCH ×2 (09:26→22:09)
[2020-08-21] MEDS: DICLOFENAC SOD 1% GEL 100 GM TUBE EXT SCH ×4 (09:27→22:10)
[2020-08-21] MEDS: POLYETHYLENE (MIRALAX) 17 GM PACK PO SCH (09:29)
[2020-08-21] MEDS: TAPENTADOL HCL 50 MG TAB PO SCH ×4 (09:32→22:08)
[2020-08-21] MEDS: TAPENTADOL HCL ER 50 MG TABCR PO SCH ×2 (09:48→22:09)
--- NOTE | 2020-08-21 10:00 | Hospitalist Progress Note ---
Date of Service August 21, 2020 Assessment & Plan (1) Chronic pain: Patient is a 20-year-old female well known to our service with PMHx. sickle cell disease and chronic pain, admitted on 07/26/2020 for acute vaso- occlusive sickle cell crisis, now resolved. Now has persistent pain that is not controlled with IV pain medications. Pain management consulted on 08/16 for further recs. Acute on Chronic Pain - Narcotic hyperanalgesia/chronic pain syndrome - scheduled pregabalin 150 mg BID, duloxetine 60 mg PO HS - scheduled tapentadol 150 mg ER BID, now up to 75 mg SR TID. - breakthrough pain options: Dilaudid 1 mg IV Q3H - Bowel Regimen with scheduled Miralax/Senna in addition to PRN Miralax/Docusate - Per [facility] recs, consider referral to [facility] for chronic exchange transfusions on outpatient basis to help with pain Acute Vaso-occlusive sickle cell crisis, resolved - S/P 2 units pRBC transfusion, Hgb 9.6 today. CXR without evidence of ACS. 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 Discussed requirements of pre-treatment with chemotherapy, potential for infertility & need for egg banking/donation. Sleep Disturbance/Insomnia - Doxepin 25mg PO QHS - PRN Benadryl Anxiety/BPD - Continue Duloxetine and Buspirone 15mg TID GERD - Continue Protonix 40mg PO QHS FEN/GI: regular, 1/2NS @100cc/hr DVT ppx: Lovenox 30mg SQ QAM Code: full code Dispo: med/surg Admission and Anticipated Discharge Date Admission Date: July 26, 2020 Supervising Physician Co-Signing Physician Notes I personally examined the patient and verified all amaro points of history and exam, discussed case, and agree with decision making with Dr Bailey seen in conjunction w Dr Bailey. pt smiling, appearing more interactive. discussed higher levels of management for sickle cell as outpt. pt asked good questions vitals noted nad heent nc at mmm breathing unlabored no accessory muscles good effort skin no rashes no pallor or icterus neuro no focal deficits sickle cell w ongoing vasocclusive pain, likely also chronic pain physiology contributing -continue lyrica -uptitrate nucynta -hopefully home soon -outpt tertiary sickle cell clinic eval otherwise as above Subjective Reports improving pain management today. Says she's starting to feel more like herself. Review of Systems Respiratory: no cough Cardiovascular: no chest pain and no dyspnea Gastrointestinal: no abdominal pain and no nausea Musculoskeletal: + back pain and + body aches Physical Exam Physical Exam: Constitutional: sitting up in bed appearing comfortable. Eyes: EOMI, pupils equal and reactive bilaterally, no scleral icterus Cardiac: RRR, no murmurs, gallops or rubs. Normal S1, S2 Pulm: CTA BL, breathing easily on room air Abd: soft, nontender, nondistended, Results & Data Results & Data ([facility]) Vital Signs (Past 12 Hours) Vital Signs Temp Pulse Pulse Resp BP BP Pulse Ox 08/21/20 07:30 37.3 C 86 20 95/60 L 98 08/20/20 23:20 36.8 C 89 18 95/57 L 98 Laboratory Results WBC 5.70 K/uL (4.8-10.8) 08/21/20 07:35 RBC 2.67 M/uL (4.2-5.4) L 08/21/20 07:35 Hgb 9.9 g/dL (12.0-16.0) L 08/21/20 07:35 Hct 28.0 % (37-47) L 08/21/20 07:35 MCV 104.9 fL (80-100) H 08/21/20 07:35 MCH 37.1 pg (25-34) H 08/21/20 07:35 MCHC 35.4 g/dL (32-36) 08/21/20 07:35 RDW Std Deviation 79.0 fL (36.4-46.3) H 08/21/20 07:35 RDW Coeff of Nando 20.8 % (11.5-14.5) H 08/21/20 07:35 Plt Count 351 K/uL (130-400) 08/21/20 07:35 MPV 9.2 fL (7.4-10.4) 08/21/20 07:35 Immature Gran % (Auto) 0.2 % 08/21/20 07:35 Neut % (Auto) 43.4 % 08/21/20 07:35 Lymph % (Auto) 48.6 % 08/21/20 07:35 [place] % (Auto) 5.8 % 08/21/20 07:35 Eos % (Auto) 1.8 % 08/21/20 07:35 Baso % (Auto) 0.2 % 08/21/20 07:35 Reticulocyte % (Auto) 6.1 % (0.5-2.0) H 08/01/20 06:04 Neut # (Auto) 2.48 K/uL (1.4-6.5) 08/21/20 07:35 Lymph # (Auto) 2.77 K/uL (1.2-3.4) 08/21/20 07:35 [place] # (Auto) 0.33 K/uL (0.11-0.59) 08/21/20 07:35 Eos # (Auto) 0.10 K/uL (0-0.5) 08/21/20 07:35 Baso # (Auto) 0.01 K/uL (0-0.2) 08/21/20 07:35 Reticulocyte # 0.13 10^6/uL (0.02-0.10) H 08/01/20 06:04 Immature Gran # (Auto) 0.01 K/uL (0.00-0.02) 08/21/20 07:35 Absolute Nucleated RBC 0.13 K/uL (0-0) H 08/21/20 07:35 Nucleated RBC % (auto) 2.3 % 08/21/20 07:35 Hypersegmented Neuts 1+ 08/17/20 06:29 Hyposegmented Neuts 1+ 08/10/20 08:58 Toxic Granulation 1+ 08/16/20 06:19 Polychromasia 1+ 08/21/20 07:35 Poikilocytosis Present 08/18/20 08:25 Anisocytosis Present 08/21/20 07:35 Macrocytosis Present 08/16/20 06:19 Pappenheimer Bodies 1+ 08/03/20 07:21 Sickle Cells Occasional 08/03/20 07:21 Target Cells 2+ 08/21/20 07:35 Tear Drop Cells 1+ 08/20/20 06:00 Ovalocytes 1+ 08/05/20 08:53 [place] Bodies 1+ 08/19/20 07:18 PT 10.5 Seconds (9.0-12.0) 07/26/20 00:43 INR 1.0 (0.9-1.1) 07/26/20 00:43 APTT 21.3 Seconds (21.0-31.0) 07/26/20 00:43 PTT Ratio 0.8 07/26/20 00:43 Sodium 136 mmol/L (136-145) 08/19/20 07:18 Potassium 3.7 mmol/L (3.5-5.1) 08/19/20 07:18 Chloride 104 mmol/L (98-107) 08/19/20 07:18 Carbon Dioxide 25 mmol/L (21-32) 08/19/20 07:18 Anion Gap 7.0 (3-11) 08/19/20 07:18 BUN 8 mg/dl (7-18) 08/19/20 07:18 Creatinine 0.39 mg/dl (0.6-1.2) L 08/19/20 07:18 Est Cr Clr Drug Dosing 229.8 ml/min 08/19/20 07:18 Est GFR ( Amer) > 150.0 ml/min 08/19/20 07:18 Est GFR (Non-Af Amer) 149.1 ml/min 08/19/20 07:18 BUN/Creatinine Ratio 21.2 (10-20) H 08/19/20 07:18 Glucose 89 mg/dl (70-99) 08/19/20 07:18 Calcium 9.2 mg/dl (8.5-10.1) 08/19/20 07:18 Total Bilirubin 0.7 mg/dl (0.2-1) D 08/17/20 06:29 Direct Bilirubin 0.3 mg/dl (0-0.2) H 08/01/20 06:04 AST 38 U/L (15-37) H 08/17/20 06:29 ALT 63 U/L (12-78) 08/17/20 06:29 Alkaline Phosphatase 93 U/L (45-117) 08/17/20 06:29 Total Creatine Kinase 44 U/L (26-192) 08/01/20 06:04 Troponin I < 0.015 ng/ml (0-0.045) 08/01/20 06:04 Total Protein 7.4 gm/dl (6.4-8.2) 08/17/20 06:29 Albumin 3.4 gm/dl (3.4-5.0) 08/17/20 06:29 Globulin 4.0 gm/dl (2.5-4.0) 08/17/20 06:29 Albumin/Globulin Ratio 0.8 (0.9-2) L 08/17/20 06:29 25-OH Vitamin D Total 20.7 ng/ml (30-100) L 08/16/20 10:18 HCG, Qual Negative (Negative) 07/26/20 00:44 Specimen Hemolysis 08/10/20 08:58 COVID-19 Eval Order Covid19 at [facility] 07/26/20 01:35 SARS-CoV-2 (PCR) NEGATIVE (Negative) 07/26/20 01:35 Blood Type B Positive 08/02/20 10:54 Antibody Screen NEGATIVE 08/02/20 10:54 Crossmatch See Detail 08/02/20 10:54 Impressions Gallbladder Ultrasound 08/01/20 08:52 ABDOMINAL ULTRASOUND, RIGHT UPPER QUADRANT HISTORY: elevated total bilirubin, right upper quadrant abdominal pain, sickle cell. COMPARISON: Abdominal ultrasound 07/04/2020. FINDINGS: Pancreas: The pancreas demonstrates a normal echotexture. Liver: Unremarkable. Gallbladder: No gallbladder wall thickening. A few small mobile echogenic foci measuring up to 4 mm. These likely represent small stones.. CBD: 4 mm. Right kidney: No hydronephrosis. IMPRESSION: 1. A few small gallstones. No gallbladder wall thickening. 2. Normal caliber common bile duct. ACT 112: Negative or not required by law. Electronically signed by: Cortes Fletcher M.D. 08/01/2020 10:26 AM Brain MRI 08/11/20 16:03 MRI OF THE BRAIN WITHOUT IV CONTRAST CLINICAL HISTORY: Change in mental status. Blurry vision. COMPARISON STUDY: CT of the brain dated 11/10/2019. MRI of the brain dated 11/24/2018. TECHNIQUE: MRI of the brain was performed utilizing various T1 and T2-weighted sequences in the axial, sagittal, and coronal planes. IV contrast was not administered for this examination. The examination is performed using the seizure protocol. FINDINGS: Brain parenchyma: The brain parenchyma is normal in appearance. There is no hemorrhage or mass effect. There is no restricted diffusion to suggest acute ischemia. Bashir-white matter differentiation is preserved. No extra-axial fluid collection is seen. The cerebellar tonsils are normal in configuration. The hippocampi are normal and symmetric. Ventricles, sulci, and cisterns: Normal in configuration. Pituitary and sella: Unremarkable. Intracranial vasculature: Normal flow voids are maintained at the skull base. Orbits: The bony orbits are grossly intact. Orbital contents are normal in appearance. Sinuses and mastoids: Clear. Calvarium: Thickening of the sphenoid bone in the left parietal bone is unchanged from previous. No destructive calvarial lesion is identified. Cervical cord: Partially visualized cervical spinal cord is normal in morphology and signal intensity. IMPRESSION: No intracranial abnormality is identified. ACT 112: Negative or not required by law. Electronically signed by: Richard Mcmahon M.D. 08/11/2020 5:28 PM Chest X-Ray 08/13/20 10:19 TWO VIEW CHEST CLINICAL HISTORY: Atypical chest pain. FINDINGS: PA and lateral chest radiographs are compared to study dated 08/01/2020. The cardiomediastinal silhouette is unremarkable. The lungs and pleural spaces are clear. There is no pneumothorax. The bony thorax appears intact. IMPRESSION: No active disease in the chest. ACT 112: Negative or not required by law. Electronically signed by: Richard Mcmahon M.D. 08/13/2020 11:29 AM Resident Activity Tracking Resident Involvement: Resident Care Provided Care Provided: [facility]
--- NOTE | 2020-08-21 13:08 | Billing Data ---
Date of Service August 21, 2020 Coding Level of Care Code 90635 Subseq Hosp Care Lvl 3
[2020-08-21] MEDS ORDERED: TAPENTADOL HCL 50 MG TAB PO ONE (14:30)
[2020-08-21] MEDS ORDERED: TAPENTADOL HCL ER 50 MG TABCR PO SCH (21:00)
[2020-08-21] MEDS: DULoxetine HCL 60 MG CAP PO SCH (22:07)
[2020-08-21] MEDS: DOXEPIN HCL 25 MG CAPSULE PO PRN (22:07)
[2020-08-21] MEDS: FOLIC ACID 1 MG TAB PO SCH (22:07)
[2020-08-22] MEDS: HYDROmorphone INJ 1 MG/ML SYRINGE IV PRN ×5 (02:24→16:59)
[2020-08-22] MEDS: SODIUM CHLORIDE 0.45 % 1,000 ML IV SCH ×3 (02:26→22:46)
[2020-08-22] MEDS: PREGABALIN 150 MG CAP PO SCH ×2 (09:41→21:56)
[2020-08-22] MEDS: TAPENTADOL HCL ER 50 MG TABCR PO SCH ×2 (09:41→21:56)
[2020-08-22] MEDS: HYDROXYUREA 500 MG CAP PO SCH ×2 (09:42→22:00)
[2020-08-22] MEDS: TAPENTADOL HCL 50 MG TAB PO SCH ×3 (09:42→21:56)
[2020-08-22] MEDS: CEROVITE ADV FORMULA TAB PO SCH (09:42)
[2020-08-22] MEDS: SENNA 8.6 MG TAB PO SCH (09:43)
[2020-08-22] MEDS: POLYETHYLENE (MIRALAX) 17 GM PACK PO SCH (09:43)
[2020-08-22] MEDS: busPIRone 15 MG TAB PO SCH ×3 (09:43→21:57)
[2020-08-22] MEDS: ENOXAPARIN INJ 30 MG/0.3 ML SYR SQ SCH (09:43)
[2020-08-22] MEDS: DICLOFENAC SOD 1% GEL 100 GM TUBE EXT SCH ×4 (09:44→22:00)
--- NOTE | 2020-08-22 10:55 | Hospitalist Progress Note ---
Date of Service August 22, 2020 Assessment & Plan (1) Chronic pain: Patient is a 20-year-old female well known to our service with PMHx. sickle cell disease and chronic pain, admitted on 07/26/2020 for acute vaso- occlusive sickle cell crisis, now resolved. Now has persistent pain that is not controlled with IV pain medications. Pain management consulted on 08/16 for further recs. Acute on Chronic Pain - Narcotic hyperanalgesia/chronic pain syndrome - scheduled pregabalin 150 mg BID, duloxetine 60 mg PO HS - scheduled tapentadol 150 mg ER BID, now up to 75 mg SR TID. - breakthrough pain options: Dilaudid 1 mg IV spaced to Q6H - Bowel Regimen with scheduled Miralax/Senna in addition to PRN Miralax/Docusate Acute Vaso-occlusive sickle cell crisis, resolved - S/P 2 units pRBC transfusion, Hgb 9.6 today. CXR without evidence of ACS. 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 Discussed requirements of pre-treatment with chemotherapy, potential for infertility & need for egg banking/donation. - will proceed forward with recommendation to [facility] exchange transfusions for near future Sleep Disturbance/Insomnia - Doxepin 25mg PO QHS - PRN Benadryl Anxiety/BPD - Continue Duloxetine and Buspirone 15mg TID GERD - Continue Protonix 40mg PO QHS FEN/GI: regular, 1/2NS @100cc/hr DVT ppx: Lovenox 30mg SQ QAM Code: full code Dispo: med/surg Admission and Anticipated Discharge Date Admission Date: July 26, 2020 Supervising Physician Co-Signing Physician Notes I personally examined the patient and verified all amaro points of history and exam, discussed case, and agree with decision making with Dr Bailey Still overall feeling worse than yesterday, but does seem to be better than this morning. Pain mostly is in her legs. Notes it was exacerbated by walking. vitals noted nad heent nc at mmm breathing unlabored no accessory muscles good effort skin no rashes no pallor or icterus neuro no focal deficits sickle cell w ongoing vasocclusive pain, likely also chronic pain physiology contributing -continue lyrica -Continue nucynta -hopefully home soon, for now still needing as needed narcoticstrying to space them out more -outpt tertiary sickle cell clinic eval otherwise as above Subjective not feeling as well this mornign. says she got up and went for a walk outside yesterday but had worsening pain after doing so. pain is mostly in legs this morning. Review of Systems Review of Systems: All systems reviewed & are unremarkable except as noted in Subjective Physical Exam Physical Exam: Constitutional: appearing pained, laying in bed, shaking legs Eyes: EOMI, pupils equal and reactive bilaterally, no scleral icterus Cardiac: RRR, no murmurs, gallops or rubs. Normal S1, S2 Pulm: CTA BL, breathing easily on room air Abd: soft, nontender, nondistended, Results & Data Results & Data ([facility]) Vital Signs (Past 12 Hours) Vital Signs Temp Pulse Pulse Resp BP BP Pulse Ox 08/22/20 07:30 37 C 91 H 20 108/69 90 08/22/20 00:20 36.7 C 103 H 16 109/66 99 Resident Activity Tracking Resident Involvement: Resident Care Provided Care Provided: Adult Hospital Medicine
[2020-08-22] MEDS ORDERED: HYDROmorphone INJ 1 MG/ML SYRINGE IV PRN (17:38)
[2020-08-22] MEDS ORDERED: HYDROmorphone INJ 2 MG/ML SYR/VIAL IV PRN ×2 (19:13→22:28)
--- NOTE | 2020-08-22 19:15 | Billing Data ---
Date of Service August 22, 2020 Coding Level of Care Code 39139 Subseq Hosp Care Lvl 2
[2020-08-22] MEDS: PANTOprazole 40 MG TAB PO SCH (21:56)
[2020-08-22] MEDS: FOLIC ACID 1 MG TAB PO SCH (21:57)
[2020-08-22] MEDS: DULoxetine HCL 60 MG CAP PO SCH (21:58)
[2020-08-22] MEDS: DOXEPIN HCL 25 MG CAPSULE PO PRN (21:59)
[2020-08-22] MEDS ORDERED: HYDROmorphone INJ 1 MG/ML SYRINGE ONE (22:40)
[2020-08-23] MEDS: HYDROmorphone INJ 1 MG/ML SYRINGE IV PRN ×4 (05:34→20:44)
--- NOTE | 2020-08-23 08:01 | Hospitalist Progress Note ---
Date of Service August 23, 2020 Assessment & Plan (1) Chronic pain: Patient is a 20-year-old female well known to our service with PMHx. sickle cell disease and chronic pain, admitted on 07/26/2020 for acute vaso- occlusive sickle cell crisis, now resolved. Now has persistent pain that is not controlled with IV pain medications. Pain management consulted on 08/16 for further recs. Acute on Chronic Pain - Narcotic hyperanalgesia/chronic pain syndrome - scheduled pregabalin 150 mg BID, duloxetine 60 mg PO HS - scheduled tapentadol 150 mg ER BID, now up to 75 mg SR TID. - breakthrough pain options: Dilaudid 1 mg IV Q5h - Bowel Regimen with scheduled Miralax/Senna in addition to PRN Miralax/Docusate - attempting to wean off narcotics with difficulty Acute Vaso-occlusive sickle cell crisis, resolved - S/P 2 units pRBC transfusion, Hgb 9.6 today. CXR without evidence of ACS. Chronic Sickle Cell Disease - Continue folic acid 2mg PO QHS, hydroxyurea 1000mg PO BID - Continue incentive spirometry - discussed options for hematopoietic stem cell transplant as option for retirement SCD control/improvement. Discussed requirements of pre-treatment with chemotherapy, potential for infertility & need for egg banking/donation. - will proceed forward with recommendation to [facility] for outpatient exchange transfusions for near future Sleep Disturbance/Insomnia - Doxepin 25mg PO QHS - PRN Benadryl Anxiety/BPD - Continue Duloxetine and Buspirone 15mg TID GERD - Continue Protonix 40mg PO QHS FEN/GI: regular, 1/2NS @100cc/hr DVT ppx: Lovenox 30mg SQ QAM Code: full code Dispo: med/surg Admission and Anticipated Discharge Date Admission Date: July 26, 2020 Supervising Physician Co-Signing Physician Notes I personally examined the patient and verified all amaro points of history and exam, discussed case, and agree with decision making with Dr Bailey sleeping comfortably when i see her. in d/w [employer] - she did take a walk earlier when boyfriend arrived and seemed to do OK wtih this. vitals noted breathing unlabored no apparent distress sickle cell w ongoing vasocclusive pain, likely also chronic pain physiology contributing -continue lyrica -Continue nucynta -hopefully home soon, for now still needing as needed narcoticstrying to space them out more with limited success -outpt tertiary sickle cell clinic eval otherwise as above Subjective not feeling as well overnight. required uptitration of dilaudid to 1.25 mg Q6h, which was switched to 1 mg Q5h. Physical Exam Physical Exam: Constitutional: appearing pained, laying in bed, fatigued appearing Eyes: EOMI, pupils equal and reactive bilaterally, no scleral icterus Cardiac: RRR, no murmurs, gallops or rubs. Normal S1, S2 Pulm: CTA BL, breathing easily on room air Abd: soft, nontender, nondistended, Results & Data Results & Data ([facility]) Vital Signs (Past 12 Hours) Vital Signs Temp Pulse Resp BP Pulse Ox 08/22/20 23:31 37 C 91 H 16 109/76 99 Laboratory Results WBC 5.70 K/uL (4.8-10.8) 08/21/20 07:35 RBC 2.67 M/uL (4.2-5.4) L 08/21/20 07:35 Hgb 9.9 g/dL (12.0-16.0) L 08/21/20 07:35 Hct 28.0 % (37-47) L 08/21/20 07:35 MCV 104.9 fL (80-100) H 08/21/20 07:35 MCH 37.1 pg (25-34) H 08/21/20 07:35 MCHC 35.4 g/dL (32-36) 08/21/20 07:35 RDW Std Deviation 79.0 fL (36.4-46.3) H 08/21/20 07:35 RDW Coeff of [place]ando 20.8 % (11.5-14.5) H 08/21/20 07:35 Plt Count 351 K/uL (130-400) 08/21/20 07:35 MPV 9.2 fL (7.4-10.4) 08/21/20 07:35 Immature Gran % (Auto) 0.2 % 08/21/20 07:35 Neut % (Auto) 43.4 % 08/21/20 07:35 Lymph % (Auto) 48.6 % 08/21/20 07:35 [place] % (Auto) 5.8 % 08/21/20 07:35 Eos % (Auto) 1.8 % 08/21/20 07:35 Baso % (Auto) 0.2 % 08/21/20 07:35 Reticulocyte % (Auto) 6.1 % (0.5-2.0) H 08/01/20 06:04 Neut # (Auto) 2.48 K/uL (1.4-6.5) 08/21/20 07:35 Lymph # (Auto) 2.77 K/uL (1.2-3.4) 08/21/20 07:35 [place] # (Auto) 0.33 K/uL (0.11-0.59) 08/21/20 07:35 Eos # (Auto) 0.10 K/uL (0-0.5) 08/21/20 07:35 Baso # (Auto) 0.01 K/uL (0-0.2) 08/21/20 07:35 Reticulocyte # 0.13 10^6/uL (0.02-0.10) H 08/01/20 06:04 Immature Gran # (Auto) 0.01 K/uL (0.00-0.02) 08/21/20 07:35 Absolute Nucleated RBC 0.13 K/uL (0-0) H 08/21/20 07:35 Nucleated RBC % (auto) 2.3 % 08/21/20 07:35 Hypersegmented Neuts 1+ 08/17/20 06:29 Hyposegmented Neuts 1+ 08/10/20 08:58 Toxic Granulation 1+ 08/16/20 06:19 Polychromasia 1+ 08/21/20 07:35 Poikilocytosis Present 08/18/20 08:25 Anisocytosis Present 08/21/20 07:35 Macrocytosis Present 08/16/20 06:19 Pappenheimer Bodies 1+ 08/03/20 07:21 Sickle Cells Occasional 08/03/20 07:21 Target Cells 2+ 08/21/20 07:35 Tear Drop Cells 1+ 08/20/20 06:00 Ovalocytes 1+ 08/05/20 08:53 [place] Bodies 1+ 08/19/20 07:18 PT 10.5 Seconds (9.0-12.0) 07/26/20 00:43 INR 1.0 (0.9-1.1) 07/26/20 00:43 APTT 21.3 Seconds (21.0-31.0) 07/26/20 00:43 PTT Ratio 0.8 07/26/20 00:43 Sodium 136 mmol/L (136-145) 08/19/20 07:18 Potassium 3.7 mmol/L (3.5-5.1) 08/19/20 07:18 Chloride 104 mmol/L (98-107) 08/19/20 07:18 Carbon Dioxide 25 mmol/L (21-32) 08/19/20 07:18 Anion Gap 7.0 (3-11) 08/19/20 07:18 BUN 8 mg/dl (7-18) 08/19/20 07:18 Creatinine 0.39 mg/dl (0.6-1.2) L 08/19/20 07:18 Est Cr Clr Drug Dosing 229.8 ml/min 08/19/20 07:18 Est GFR ( Amer) > 150.0 ml/min 08/19/20 07:18 Est GFR (Non-Af Amer) 149.1 ml/min 08/19/20 07:18 BUN/Creatinine Ratio 21.2 (10-20) H 08/19/20 07:18 Glucose 89 mg/dl (70-99) 08/19/20 07:18 Calcium 9.2 mg/dl (8.5-10.1) 08/19/20 07:18 Total Bilirubin 0.7 mg/dl (0.2-1) D 08/17/20 06:29 Direct Bilirubin 0.3 mg/dl (0-0.2) H 08/01/20 06:04 AST 38 U/L (15-37) H 08/17/20 06:29 ALT 63 U/L (12-78) 08/17/20 06:29 Alkaline Phosphatase 93 U/L (45-117) 08/17/20 06:29 Total Creatine Kinase 44 U/L (26-192) 08/01/20 06:04 Troponin I < 0.015 ng/ml (0-0.045) 08/01/20 06:04 Total Protein 7.4 gm/dl (6.4-8.2) 08/17/20 06:29 Albumin 3.4 gm/dl (3.4-5.0) 08/17/20 06:29 Globulin 4.0 gm/dl (2.5-4.0) 08/17/20 06:29 Albumin/Globulin Ratio 0.8 (0.9-2) L 08/17/20 06:29 25-OH Vitamin D Total 20.7 ng/ml (30-100) L 08/16/20 10:18 HCG, Qual Negative (Negative) 07/26/20 00:44 Specimen Hemolysis 08/10/20 08:58 COVID-19 Eval Order Covid19 at [facility] 07/26/20 01:35 SARS-CoV-2 (PCR) NEGATIVE (Negative) 07/26/20 01:35 Blood Type B Positive 08/02/20 10:54 Antibody Screen NEGATIVE 08/02/20 10:54 Crossmatch See Detail 08/02/20 10:54 Impressions Gallbladder Ultrasound 08/01/20 08:52 ABDOMINAL ULTRASOUND, RIGHT UPPER QUADRANT HISTORY: elevated total bilirubin, right upper quadrant abdominal pain, sickle cell. COMPARISON: Abdominal ultrasound 07/04/2020. FINDINGS: Pancreas: The pancreas demonstrates a normal echotexture. Liver: Unremarkable. Gallbladder: No gallbladder wall thickening. A few small mobile echogenic foci measuring up to 4 mm. These likely represent small stones.. CBD: 4 mm. Right kidney: No hydronephrosis. IMPRESSION: 1. A few small gallstones. No gallbladder wall thickening. 2. Normal caliber common bile duct. ACT 112: Negative or not required by law. Electronically signed by: Cortes Fletcher M.D. 08/01/2020 10:26 AM Brain MRI 08/11/20 16:03 MRI OF THE BRAIN WITHOUT IV CONTRAST CLINICAL HISTORY: Change in mental status. Blurry vision. COMPARISON STUDY: CT of the brain dated 11/10/2019. MRI of the brain dated 11/24/2018. TECHNIQUE: MRI of the brain was performed utilizing various T1 and T2-weighted sequences in the axial, sagittal, and coronal planes. IV contrast was not administered for this examination. The examination is performed using the seizure protocol. FINDINGS: Brain parenchyma: The brain parenchyma is normal in appearance. There is no hemorrhage or mass effect. There is no restricted diffusion to suggest acute ischemia. Bashir-white matter differentiation is preserved. No extra-axial fluid collection is seen. The cerebellar tonsils are normal in configuration. The h ippocampi are normal and symmetric. Ventricles, sulci, and cisterns: Normal in configuration. Pituitary and sella: Unremarkable. Intracranial vasculature: Normal flow voids are maintained at the skull base. Orbits: The bony orbits are grossly intact. Orbital contents are normal in appearance. Sinuses and mastoids: Clear. Calvarium: Thickening of the sphenoid bone in the left parietal bone is unchanged from previous. No destructive calvarial lesion is identified. Cervical cord: Partially visualized cervical spinal cord is normal in morphology and signal intensity. IMPRESSION: No intracranial abnormality is identified. ACT 112: Negative or not required by law. Electronically signed by: Richard Mcmahon M.D. 08/11/2020 5:28 PM Chest X-Ray 08/13/20 10:19 TWO VIEW CHEST CLINICAL HISTORY: Atypical chest pain. FINDINGS: PA and lateral chest radiographs are compared to study dated 08/01/2020. The cardiomediastinal silhouette is unremarkable. The lungs and pleural spaces are clear. There is no pneumothorax. The bony thorax appears intact. IMPRESSION: No active disease in the chest. ACT 112: Negative or not required by law. Electronically signed by: Richard Mcmahon M.D. 08/13/2020 11:29 AM Resident Activity Tracking Resident Involvement: Resident Care Provided Care Provided: Adult Hospital Medicine
[2020-08-23] MEDS: SENNA 8.6 MG TAB PO SCH (08:47)
[2020-08-23] MEDS: ENOXAPARIN INJ 30 MG/0.3 ML SYR SQ SCH ×2 (08:48→09:08)
[2020-08-23] MEDS: busPIRone 15 MG TAB PO SCH ×3 (08:48→21:05)
[2020-08-23] MEDS: CEROVITE ADV FORMULA TAB PO SCH (08:48)
[2020-08-23] MEDS: HYDROXYUREA 500 MG CAP PO SCH ×2 (08:48→21:06)
[2020-08-23] MEDS: POLYETHYLENE (MIRALAX) 17 GM PACK PO SCH (08:49)
[2020-08-23] MEDS: DICLOFENAC SOD 1% GEL 100 GM TUBE EXT SCH ×4 (08:49→21:06)
[2020-08-23] MEDS: SODIUM CHLORIDE 0.45 % 1,000 ML IV SCH ×2 (08:50→21:06)
[2020-08-23] MEDS: PREGABALIN 150 MG CAP PO SCH ×2 (08:59→21:03)
[2020-08-23] MEDS: TAPENTADOL HCL ER 50 MG TABCR PO SCH ×2 (08:59→21:04)
[2020-08-23] MEDS: TAPENTADOL HCL 50 MG TAB PO SCH ×3 (08:59→21:04)
--- NOTE | 2020-08-23 17:19 | Billing Data ---
Date of Service August 23, 2020 Coding Level of Care Code 64175 Subseq Hosp Care Lvl 1
[2020-08-23] MEDS: DULoxetine HCL 60 MG CAP PO SCH (21:05)
[2020-08-23] MEDS: FOLIC ACID 1 MG TAB PO SCH (21:05)
[2020-08-23] MEDS: PANTOprazole 40 MG TAB PO SCH (21:05)
[2020-08-24] MEDS: DOXEPIN HCL 25 MG CAPSULE PO PRN (01:30)
[2020-08-24] MEDS: HYDROmorphone INJ 1 MG/ML SYRINGE IV PRN ×6 (01:30→21:42)
[2020-08-24] MEDS: SODIUM CHLORIDE 0.45 % 1,000 ML IV SCH (06:39)
[2020-08-24] MEDS: SENNA 8.6 MG TAB PO SCH (08:02)
[2020-08-24] MEDS: POLYETHYLENE (MIRALAX) 17 GM PACK PO SCH (08:03)
[2020-08-24] MEDS: ENOXAPARIN INJ 30 MG/0.3 ML SYR SQ SCH (08:03)
[2020-08-24] MEDS: busPIRone 15 MG TAB PO SCH ×3 (08:09→21:34)
[2020-08-24] MEDS: CEROVITE ADV FORMULA TAB PO SCH (08:10)
[2020-08-24] MEDS: HYDROXYUREA 500 MG CAP PO SCH ×2 (08:10→21:35)
[2020-08-24] MEDS: TAPENTADOL HCL ER 50 MG TABCR PO SCH ×2 (08:11→21:34)
[2020-08-24] MEDS: PREGABALIN 150 MG CAP PO SCH ×2 (08:11→21:34)
[2020-08-24] MEDS: TAPENTADOL HCL 50 MG TAB PO SCH ×3 (08:11→21:35)
[2020-08-24] MEDS: DICLOFENAC SOD 1% GEL 100 GM TUBE EXT SCH ×4 (08:12→21:36)
[2020-08-24] MEDS ORDERED: TAPENTADOL HCL 50 MG TAB PO ONE (09:15)
--- NOTE | 2020-08-24 09:27 | Hospitalist Progress Note ---
Date of Service August 24, 2020 Assessment & Plan (1) Chronic pain: Patient is a 20-year-old female well known to our service with PMHx. sickle cell disease and chronic pain, admitted on 07/26/2020 for acute vaso- occlusive sickle cell crisis, now resolved. Now has persistent pain that is not controlled with IV pain medications. Pain management consulted on 08/16 for further recs. Acute on Chronic Pain - Narcotic hyperanalgesia/chronic pain syndrome - scheduled pregabalin 150 mg BID, duloxetine 60 mg PO HS - scheduled tapentadol 150 mg ER BID, now up to 100 mg SR TID. - breakthrough pain options: Dilaudid 1 mg IV Q5h - Bowel Regimen with scheduled Miralax/Senna in addition to PRN Miralax/Docusate - Discussing possibility of "placebo" effect from dilaudid as angonist + agonist/antagonist mix likely is inhibiting full dilaudid effect. - may? benefit from smaller but frequent dosing of tapentadol? would achieve placebo of frequent dosing while avoiding higher dosing that would compromise respiratory function. - can attempt switching dilaudid to PO for more outpatient-friendly regimen Acute Vaso-occlusive sickle cell crisis, resolved - S/P 2 units pRBC transfusion, Hgb 9.6 today. CXR without evidence of ACS. Chronic Sickle Cell Disease - Continue folic acid 2mg PO QHS, hydroxyurea 1000mg PO BID - Continue incentive spirometry - discussed options for hematopoietic stem cell transplant as option for rn long term care SCD control/improvement. Discussed requirements of pre-treatment with chemotherapy, potential for infertility & need for egg banking/donation. - will proceed forward with recommendation to [facility] for outpatient exchange transfusions for near future Sleep Disturbance/Insomnia - Doxepin 25mg PO QHS - PRN Benadryl Anxiety/BPD - Continue Duloxetine and Buspirone 15mg TID GERD - Continue Protonix 40mg PO QHS FEN/GI: regular, d/c fluids, encourage PO DVT ppx: Lovenox 30mg SQ QAM Code: full code Dispo: med/surg Admission and Anticipated Discharge Date Admission Date: July 26, 2020 Supervising Physician Co-Signing Physician Notes I personally examined the patient and verified all amaro points of history and exam, discussed case, and agree with decision making with Dr Bailey very worried about her chcf picture - notes that walking around she does poorly, understands that she's multifactorial with what causes pain. wonders about trying to just suppress the pain right up to discharge rather than slowly weaning. really wants to do pain psychology or any psychology, biofeedback discussed and sounds very appealing to her as well. vitals noted breathing unlabored mild distress and emotionally somewhat upset. no focal neuro deficits. sickle cell w ongoing vasocclusive pain, likely also chronic pain physiology contributing -continue lyrica -Continue nucynta -give trial of re-escalation of hydromorphone for ~24hrs to try to blunt pain cycle some given lack of many other viable options -discussed desensitization, psychology, biofeedback, etc -outpt tertiary sickle cell clinic eval otherwise as above Subjective somewhat improved this morning. bothered by IV line and has been taking PO fluids well. Discussed goals of pain control at discharge. at this time, says rosie brings her from a 7 down to 4 or 5. feels like she's slowly getting better, but not quite ready yet. Review of Systems Review of Systems: All systems reviewed & are unremarkable except as noted in Subjective Physical Exam 2 Physical Exam: Constitutional: laying in bed, fatigued appearing Eyes: EOMI, pupils equal and reactive bilaterally, no scleral icterus Cardiac: RRR, no murmurs, gallops or rubs. Normal S1, S2 Pulm: CTA BL, no wheezes, moving air well throughout both lungs Results & Data Results & Data ([facility]) Vital Signs (Past 12 Hours) Vital Signs Temp Pulse Resp BP Pulse Ox 08/24/20 08:08 36.7 C 78 16 106/63 98 08/23/20 22:15 36.7 C 98 H 16 105/72 97 Resident Activity Tracking Resident Involvement: Resident Care Provided Care Provided: Adult Hospital Medicine
--- NOTE | 2020-08-24 18:07 | Billing Data ---
Date of Service August 24, 2020 Coding Level of Care Code 22276 Subseq Hosp Care Lvl 3
[2020-08-24] MEDS: DULoxetine HCL 60 MG CAP PO SCH (21:34)
[2020-08-24] MEDS: FOLIC ACID 1 MG TAB PO SCH (21:35)
[2020-08-24] MEDS: PANTOprazole 40 MG TAB PO SCH (21:36)
[2020-08-25] MEDS: HYDROmorphone INJ 1 MG/ML SYRINGE IV PRN ×9 (00:23→23:33)
[2020-08-25] MEDS: diphenhydrAMINE Capsule 25 MG CAP PO PRN (03:50)
[2020-08-25] MEDS: ENOXAPARIN INJ 30 MG/0.3 ML SYR SQ SCH (09:12)
[2020-08-25] MEDS: POLYETHYLENE (MIRALAX) 17 GM PACK PO SCH (09:13)
[2020-08-25] MEDS: CEROVITE ADV FORMULA TAB PO SCH (09:13)
[2020-08-25] MEDS: busPIRone 15 MG TAB PO SCH ×3 (09:14→20:22)
[2020-08-25] MEDS: PREGABALIN 150 MG CAP PO SCH ×2 (09:14→20:23)
[2020-08-25] MEDS: TAPENTADOL HCL ER 50 MG TABCR PO SCH ×2 (09:14→20:22)
[2020-08-25] MEDS: TAPENTADOL HCL 50 MG TAB PO SCH ×3 (09:15→20:23)
[2020-08-25] MEDS: HYDROXYUREA 500 MG CAP PO SCH ×2 (12:06→20:22)
--- NOTE | 2020-08-25 16:25 | Hospitalist Progress Note ---
Date of Service August 25, 2020 Assessment & Plan (1) Chronic pain: Patient is a 20-year-old female well known to our service with PMHx. sickle cell disease and chronic pain, admitted on 07/26/2020 for acute vaso- occlusive sickle cell crisis, now resolved. Now has persistent pain that is not controlled with IV pain medications. Pain management consulted on 08/16 for further recs. Acute on Chronic Pain - Narcotic hyperanalgesia/chronic pain syndrome - scheduled pregabalin 150 mg BID, duloxetine 60 mg PO HS - scheduled tapentadol 150 mg ER BID, now up to 100 mg SR TID. - Increased breakthrough pain regimen to "shut it off" and will immediately stop prior to discharge rather than tapering. - Bowel Regimen with scheduled Miralax/Senna in addition to PRN Miralax/Docusate Acute Vaso-occlusive sickle cell crisis, resolved - S/P 2 units pRBC transfusion, Hgb 9.6 today. CXR without evidence of ACS. Chronic Sickle Cell Disease - Continue folic acid 2mg PO QHS, hydroxyurea 1000mg PO BID - Continue incentive spirometry - discussed options for hematopoietic stem cell transplant as option for [facility] [employer] SCD control/improvement. Discussed requirements of pre-treatment with chemotherapy, potential for infertility & need for egg banking/donation. - will proceed forward with recommendation to [facility] for outpatient exchange transfusions for near future Sleep Disturbance/Insomnia - Doxepin 25mg PO QHS - PRN Benadryl Anxiety/BPD - Continue Duloxetine and Buspirone 15mg TID GERD - Continue Protonix 40mg PO QHS FEN/GI: regular, DVT ppx: Lovenox 30mg SQ QAM Code: full code Dispo: med/surg Admission and Anticipated Discharge Date Admission Date: July 26, 2020 Supervising Physician Co-Signing Physician Notes I personally examined the patient and verified all amaro points of history and exam, discussed case, and agree with decision making with Dr Bailey Pain is better controlledplanning on taking a walk whenever her boyfriend comesnoting that she is planning on having her boyfriend help her get around more than she normally does. Also today she notes concerns again on being forgetful and having a hard time focusing her eyes. vitals noted in general she is awake and alert pleasant no distress. HEENT normocephalic atraumatic mucous membranes are moist. Breathing unlabored no accessory muscle use. Neuro with no focal neuro deficits. At times during our conversation her eyelids do lag a little bit and she does appear unfocused. sickle cell w ongoing vasocclusive pain, likely also chronic pain physiology contributing -continue lyrica -Continue nucynta -Continue trial of re-escalation of hydromorphone for ~24hrs to maybe 48 hours to try to blunt pain cycle some given lack of many other viable options -discussed desensitization, psychology, biofeedback, etcshe expresses strong desire to do this -outpt tertiary sickle cell clinic eval Forgetfulness/difficulty focusing/etc.please see my a note from about 2 weeks ago (day of MRI)had a reiteration of this discussion with the patientgiven that she shows no focal neuro deficits, and the MRI of her brain is clearit is extremely likely that her forgetfulness is 1 part pain medication, and 1 part the anxiety/stress of everything she is going through creating a little bit of difficulty cognitively focusing, and discussed that her difficulty focusing her eyes/lid drooping is likely a combination of pain med side effect, and possibly a bit of a neurologic symptom can to her nonepileptic seizuresagain likely relating back to the anxiety/stress of everything she is going through. Did offer neurology/ophthalmology evaluations for second opinions on thiscurrently she declined and expressed good understanding. otherwise as above Subjective doing okay this morning. long discussion regarding management of chronic pain outside of hospital and how to get to that point. continues to deny chest pain, trouble breathing. Review of Systems Review of Systems: All systems reviewed & are unremarkable except as noted in Subjective Physical Exam Physical Exam: Constitutional: laying in bed, fatigued appearing Eyes: EOMI, pupils equal and reactive bilaterally, no scleral icterus Cardiac: RRR, no murmurs, gallops or rubs. Normal S1, S2 Pulm: CTA BL, no wheezes, moving air well throughout both lungs Results & Data Results & Data ([facility]) Vital Signs (Past 12 Hours) Vital Signs Temp Pulse Resp BP Pulse Ox 08/25/20 16:04 36.4 C L 96 H 18 101/67 98 08/25/20 07:45 36.4 C L 90 20 100/60 97 Resident Activity Tracking Resident Involvement: Resident Care Provided Care Provided: [facility]
--- NOTE | 2020-08-25 16:37 | Billing Data ---
Date of Service August 25, 2020 Coding Level of Care Code 53820 Subseq Hosp Care Lvl 3
[2020-08-26] MEDS: HYDROmorphone INJ 1 MG/ML SYRINGE IV PRN ×10 (02:11→23:51)
[2020-08-26] MEDS: diphenhydrAMINE Capsule 25 MG CAP PO PRN (02:11)
[2020-08-26] MEDS: POLYETHYLENE (MIRALAX) 17 GM PACK PO SCH (09:08)
[2020-08-26] MEDS: busPIRone 15 MG TAB PO SCH ×3 (09:08→20:41)
[2020-08-26] MEDS: ENOXAPARIN INJ 30 MG/0.3 ML SYR SQ SCH (09:08)
[2020-08-26] MEDS: HYDROXYUREA 500 MG CAP PO SCH ×2 (09:09→20:40)
[2020-08-26] MEDS: TAPENTADOL HCL ER 50 MG TABCR PO SCH ×2 (09:09→20:41)
[2020-08-26] MEDS: PREGABALIN 150 MG CAP PO SCH ×2 (09:09→20:41)
[2020-08-26] MEDS: TAPENTADOL HCL 50 MG TAB PO SCH ×3 (09:09→20:41)
[2020-08-26] MEDS: CEROVITE ADV FORMULA TAB PO SCH (09:09)
--- NOTE | 2020-08-26 12:14 | Hospitalist Progress Note ---
Date of Service August 26, 2020 Assessment & Plan (1) Chronic pain: Patient is a 20-year-old female well known to our service with PMHx. sickle cell disease and chronic pain, admitted on 07/26/2020 for acute vaso- occlusive sickle cell crisis, now resolved. Now has persistent pain that is not controlled with IV pain medications. Pain management consulted on 08/16 for further recs. Acute on Chronic Pain - Narcotic hyperanalgesia/chronic pain syndrome - scheduled pregabalin 150 mg BID, duloxetine 60 mg PO HS - scheduled tapentadol 150 mg ER BID, now up to 100 mg SR TID. - Increased breakthrough pain regimen to "shut it off" and will immediately stop prior to discharge rather than tapering. - Bowel Regimen with scheduled Miralax/Senna in addition to PRN Miralax/Docusate - plan to discontinue dilaudid on 08/27 and see how pain and function is tolerated for the next day or so Acute Vaso-occlusive sickle cell crisis, resolved - S/P 2 units pRBC transfusion. CXR without evidence of ACS. Chronic Sickle Cell Disease - Continue folic acid 2mg PO QHS, hydroxyurea 1000mg PO BID - Continue incentive spirometry - discussed options for hematopoietic stem cell transplant as option for group home SCD control/improvement. Discussed requirements of pre-treatment with chemotherapy, potential for infertility & need for egg banking/donation. - will proceed forward with recommendation [place] [facility] [place] t ransfusions for near future Sleep Disturbance/Insomnia - Doxepin 25mg PO QHS - PRN Benadryl Anxiety/BPD - Continue Duloxetine and Buspirone 15mg TID GERD - Continue Protonix 40mg PO QHS FEN/GI: regular, DVT ppx: Lovenox 30mg SQ QAM Code: full code Dispo: med/surg Admission and Anticipated Discharge Date Admission Date: July 26, 2020 Supervising Physician Co-Signing Physician Notes I personally saw and examined the patient. I verified all amaro points and agree with Dr Bailey, resident physician with the following exceptions and/or additions: Longstanding hospital. Patient asleep when seen and did not wake up. O/E resting comfortably in bed. No respiratory distress. A/P Acute on chronic pain -continue with previous providers plan with stopping Dilaudid tomorrow. Subjective had some more issues with pain overnight. concerned because she feels like she can't breathe after having seizure episodes. pain mostly in left leg today. Review of Systems Review of Systems: All systems reviewed & are unremarkable except as noted in Subjective Physical Exam Physical Exam: Constitutional: laying in bed, fatigued appearing Eyes: EOMI, pupils equal and reactive bilaterally, no scleral icterus Cardiac: RRR, no murmurs, gallops or rubs. Normal S1, S2 Pulm: CTA BL, no wheezes, moving air well throughout both lungs Results & Data Results & [facility] ([facility]) Vital Signs (Past 12 Hours) Vital Signs Temp Pulse Resp BP Pulse Ox 08/26/20 08:00 37 C 90 20 93/56 L 99 Laboratory Results WBC 5.70 K/uL (4.8-10.8) 08/21/20 07:35 RBC 2.67 M/uL (4.2-5.4) L 08/21/20 07:35 Hgb 9.9 g/dL (12.0-16.0) L 08/21/20 07:35 Hct 28.0 % (37-47) L 08/21/20 07:35 MCV 104.9 fL (80-100) H 08/21/20 07:35 MCH 37.1 pg (25-34) H 08/21/20 07:35 MCHC 35.4 g/dL (32-36) 08/21/20 07:35 RDW Std Deviation 79.0 fL (36.4-46.3) H 08/21/20 07:35 RDW Coeff of Nando 20.8 % (11.5-14.5) H 08/21/20 07:35 Plt Count 351 K/uL (130-400) 08/21/20 07:35 MPV 9.2 fL (7.4-10.4) 08/21/20 07:35 Immature Gran % (Auto) 0.2 % 08/21/20 07:35 Neut % (Auto) 43.4 % 08/21/20 07:35 Lymph % (Auto) 48.6 % 08/21/20 07:35 Griggs % (Auto) 5.8 % 08/21/20 07:35 Eos % (Auto) 1.8 % 08/21/20 07:35 Baso % (Auto) 0.2 % 08/21/20 07:35 Reticulocyte % (Auto) 6.1 % (0.5-2.0) H 08/01/20 06:04 Neut # (Auto) 2.48 K/uL (1.4-6.5) 08/21/20 07:35 Lymph # (Auto) 2.77 K/uL (1.2-3.4) 08/21/20 07:35 Griggs # (Auto) 0.33 K/uL (0.11-0.59) 08/21/20 07:35 Eos # (Auto) 0.10 K/uL (0-0.5) 08/21/20 07:35 Baso # (Auto) 0.01 K/uL (0-0.2) 08/21/20 07:35 Reticulocyte # 0.13 10^6/uL (0.02-0.10) H 08/01/20 06:04 Immature Gran # (Auto) 0.01 K/uL (0.00-0.02) 08/21/20 07:35 Absolute Nucleated RBC 0.13 K/uL (0-0) H 08/21/20 07:35 Nucleated RBC % (auto) 2.3 % 08/21/20 07:35 Hypersegmented Neuts 1+ 08/17/20 06:29 Hyposegmented Neuts 1+ 08/10/20 08:58 Toxic Granulation 1+ 08/16/20 06:19 Polychromasia 1+ 08/21/20 07:35 Poikilocytosis Present 08/18/20 08:25 Anisocytosis Present 08/21/20 07:35 Macrocytosis Present 08/16/20 06:19 Pappenheimer Bodies 1+ 08/03/20 07:21 Sickle Cells Occasional 08/03/20 07:21 Target Cells 2+ 08/21/20 07:35 Tear Drop Cells 1+ 08/20/20 06:00 Ovalocytes 1+ 08/05/20 08:53 [place] Bodies 1+ 08/19/20 07:18 PT 10.5 Seconds (9.0-12.0) 07/26/20 00:43 INR 1.0 (0.9-1.1) 07/26/20 00:43 APTT 21.3 Seconds (21.0-31.0) 07/26/20 00:43 PTT Ratio 0.8 07/26/20 00:43 Sodium 136 mmol/L (136-145) 08/19/20 07:18 Potassium 3.7 mmol/L (3.5-5.1) 08/19/20 07:18 Chloride 104 mmol/L (98-107) 08/19/20 07:18 Carbon Dioxide 25 mmol/L (21-32) 08/19/20 07:18 Anion Gap 7.0 (3-11) 08/19/20 07:18 BUN 8 mg/dl (7-18) 08/19/20 07:18 Creatinine 0.39 mg/dl (0.6-1.2) L 08/19/20 07:18 Est Cr Clr Drug Dosing 229.8 ml/min 08/19/20 07:18 Est GFR ( Amer) > 150.0 ml/min 08/19/20 07:18 Est GFR (Non-Af Amer) 149.1 ml/min 08/19/20 07:18 BUN/Creatinine Ratio 21.2 (10-20) H 08/19/20 07:18 Glucose 89 mg/dl (70-99) 08/19/20 07:18 Calcium 9.2 mg/dl (8.5-10.1) 08/19/20 07:18 Total Bilirubin 0.7 mg/dl (0.2-1) D 08/17/20 06:29 Direct Bilirubin 0.3 mg/dl (0-0.2) H 08/01/20 06:04 AST 38 U/L (15-37) H 08/17/20 06:29 ALT 63 U/L (12-78) 08/17/20 06:29 Alkaline Phosphatase 93 U/L (45-117) 08/17/20 06:29 Total Creatine Kinase 44 U/L (26-192) 08/01/20 06:04 Troponin I < 0.015 ng/ml (0-0.045) 08/01/20 06:04 Total Protein 7.4 gm/dl (6.4-8.2) 08/17/20 06:29 Albumin 3.4 gm/dl (3.4-5.0) 08/17/20 06:29 Globulin 4.0 gm/dl (2.5-4.0) 08/17/20 06:29 Albumin/Globulin Ratio 0.8 (0.9-2) L 08/17/20 06:29 25-OH Vitamin D Total 20.7 ng/ml (30-100) L 08/16/20 10:18 HCG, Qual Negative (Negative) 07/26/20 00:44 Specimen Hemolysis 08/10/20 08:58 COVID-19 Eval Order Covid19 at [facility] 07/26/20 01:35 SARS-CoV-2 (PCR) NEGATIVE (Negative) 07/26/20 01:35 Blood Type B Positive 08/02/20 10:54 Antibody Screen NEGATIVE 08/02/20 10:54 Crossmatch See Detail 08/02/20 10:54 Impressions Gallbladder Ultrasound 08/01/20 08:52 ABDOMINAL ULTRASOUND, RIGHT UPPER QUADRANT HISTORY: elevated total bilirubin, right upper quadrant abdominal pain, sickle cell. COMPARISON: Abdominal ultrasound 07/04/2020. FINDINGS: Pancreas: The pancreas demonstrates a normal echotexture. Liver: Unremarkable. Gallbladder: No gallbladder wall thickening. A few small mobile echogenic foci measuring up to 4 mm. These likely represent small stones.. CBD: 4 mm. Right kidney: No hydronephrosis. IMPRESSION: 1. A few small gallstones. No gallbladder wall thickening. 2. Normal caliber common bile duct. ACT 112: Negative or not required by law. Electronically signed by: Cortes Fletcher M.D. 08/01/2020 10:26 AM Brain MRI 08/11/20 16:03 MRI OF THE BRAIN WITHOUT IV CONTRAST CLINICAL HISTORY: Change in mental status. Blurry vision. COMPARISON STUDY: CT of the brain dated 11/10/2019. MRI of the brain dated 11/24/2018. TECHNIQUE: MRI of the brain was performed utilizing various T1 and T2-weighted sequences in the axial, sagittal, and coronal planes. IV contrast was not administered for this examination. The examination is performed using the seizure protocol. FINDINGS: Brain parenchyma: The brain parenchyma is normal in appearance. There is no hemorrhage or mass effect. There is no restricted diffusion to suggest acute ischemia. Bashir-white matter differentiation is preserved. No extra-axial fluid collection is seen. The cerebellar tonsils are normal in configuration. The hippocampi are normal and symmetric. Ventricles, sulci, and cisterns: Normal in configuration. Pituitary and sella: Unremarkable. Intracranial vasculature: Normal flow voids are maintained at the skull base. Orbits: The bony orbits are grossly intact. Orbital contents are normal in appearance. Sinuses and mastoids: Clear. Calvarium: Thickening of the sphenoid bone in the left parietal bone is unchanged from previous. No destructive calvarial lesion is identified. Cervical cord: Partially visualized cervical spinal cord is normal in morphology and signal intensity. IMPRESSION: No intracranial abnormality is identified. ACT 112: Negative or not required by law. Electronically signed by: Richard Mcmahon M.D. 08/11/2020 5:28 PM Chest X-Ray 08/13/20 10:19 TWO VIEW CHEST CLINICAL HISTORY: Atypical chest pain. FINDINGS: PA and lateral chest radiographs are compared to study dated 08/01/2020. The cardiomediastinal silhouette is unremarkable. The lungs and pleural spaces are clear. There is no pneumothorax. The bony thorax appears intact. IMPRESSION: No active disease in the chest. ACT 112: Negative or not required by law. Electronically signed by: Richard Mcmahon M.D. 08/13/2020 11:29 AM Resident Activity Tracking Resident Involvement: Resident Care Provided Care Provided: Adult [facility]
[2020-08-26] MEDS: ONDANSETRON 8MG OD TAB PO PRN (14:48)
[2020-08-27] MEDS: HYDROmorphone INJ 1 MG/ML SYRINGE IV PRN ×3 (01:50→23:38)
[2020-08-27] MEDS: ONDANSETRON 8MG OD TAB PO PRN ×2 (01:52→15:29)
[2020-08-27] MEDS: diphenhydrAMINE Capsule 25 MG CAP PO PRN (01:52)
[2020-08-27] MEDS ORDERED: PROMETHAZINE HCL 25 MG/20 ML UDP PO PRN (02:55)
[2020-08-27] MEDS ORDERED: PROMETHAZINE HCL 12.5 MG in SODIUM CHLORIDE 0.9% 50 ML IV PRN (02:57)
[2020-08-27] MEDS: hydrOXYzine HCl 25 MG TAB PO PRN (07:39)
--- NOTE | 2020-08-27 08:46 | Hospitalist Progress Note ---
Date of Service August 27, 2020 Assessment & Plan (1) Chronic pain: Patient is a 20-year-old female well known to our service with PMHx. sickle cell disease and chronic pain, admitted on 07/26/2020 for acute vaso- occlusive sickle cell crisis, now resolved. Now has persistent pain that is not controlled with IV pain medications. Pain management consulted on 08/16 for further recs. Chronic Pain - Narcotic hyperanalgesia/chronic pain syndrome - scheduled pregabalin 150 mg BID, duloxetine 60 mg PO HS - scheduled tapentadol 150 mg ER BID, 50 mg Q4HWA SR. - In addition to Sickle cell pain and acquired chronic pain syndrome, she has a component of narcotic hyperalgesia that causes her to get more painful when narcotics are removed. She also experience a placebo effect of feeling improved pain control when receiving something that is not her narcotics. - Attempted increased dosing on 08/26 prior to abrupt cessation on AM of 08/27 to allow suppression of pain fibers and help her adjust to a chronic pain lifestyle. - will require large amounts of CBT/DBT? going forward psycho-somatic connection development against disease - Bowel Regimen with scheduled Miralax/Senna in addition to PRN Miralax/Docusate Acute Vaso-occlusive sickle cell crisis, resolved - S/P 2 units pRBC transfusion. CXR without evidence of ACS. 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 Discussed requirements of pre-treatment with chemotherapy, potential for infertility & need for egg banking/donation. - will proceed forward with [place] [facility] [place] for near future Sleep Disturbance/Insomnia - Doxepin 25mg PO QHS - PRN Benadryl Anxiety/BPD - Continue Duloxetine and Buspirone 15mg TID GERD - Continue Protonix 40mg PO QHS FEN/GI: regular, DVT ppx: Lovenox 30mg SQ QAM Code: full code Dispo: med/surg Admission and Anticipated Discharge Date Admission Date: July 26, 2020 Supervising Physician Co-Signing Physician Notes I personally saw and examined the patient. I verified all amaro points and agree with resident physician Dr Zamzam Bailey with the following exceptions and/or additions: Difficult to control chronic pain. Stopping Dilaudid today with view of getting home per prior providers notes. Appears calm, resting in bed at this time but usually has pain when she is more mobile. Planning on discharging the the next 1-2 days is stable off Dilaudid. Subjective Ovn events: nauseous, vomiting. This AM says pain is much worse than before. Had lots of pain in her back with just sitting up in bed. Ovn events: nauseous, vomiting. This AM says pain is much worse than before. Had lots of pain in her back with just sitting up in bed. Review of Systems Constitutional: + body aches Gastrointestinal: + nausea and + vomiting Musculoskeletal: + back pain, + joint pain, + stiffness, + limited range of motion and + body aches Physical Exam Physical Exam: Constitutional: laying in bed with eyes mostly closed, pained expression on face, teary Eyes: EOMI, pupils equal and reactive bilaterally, no scleral icterus Cardiac: RRR, no murmurs, gallops or rubs. Normal S1, S2 Pulm: CTA BL, no wheezes, rhonchi, crackles or rubs, moving air well throughout both lungs Abd: soft, nontender, nondistended, normal bowel sounds, Extremities: 2+ peripheral pulses, no edema Neuro: no focal deficits, moving all 4 limbs, A&Ox3, periodic pseudoseizures Results & Data Results & Data ([facility]) Vital Signs (Past 12 Hours) Vital Signs Temp Pulse Resp BP Pulse Ox 08/27/20 07:12 36.7 C 91 H 18 95/63 L 96 08/26/20 22:22 36.7 C 97 H 16 105/70 97 Laboratory Results WBC 5.70 K/uL (4.8-10.8) 08/21/20 07:35 RBC 2.67 M/uL (4.2-5.4) L 08/21/20 07:35 Hgb 9.9 g/dL (12.0-16.0) L 08/21/20 07:35 Hct 28.0 % (37-47) L 08/21/20 07:35 MCV 104.9 fL (80-100) H 08/21/20 07:35 MCH 37.1 pg (25-34) H 08/21/20 07:35 MCHC 35.4 g/dL (32-36) 08/21/20 07:35 RDW Std Deviation 79.0 fL (36.4-46.3) H 08/21/20 07:35 RDW Coeff of Nando 20.8 % (11.5-14.5) H 08/21/20 07:35 Plt Count 351 K/uL (130-400) 08/21/20 07:35 MPV 9.2 fL (7.4-10.4) 08/21/20 07:35 Immature Gran % (Auto) 0.2 % 08/21/20 07:35 Neut % (Auto) 43.4 % 08/21/20 07:35 Lymph % (Auto) 48.6 % 08/21/20 07:35 Banks % (Auto) 5.8 % 08/21/20 07:35 Eos % (Auto) 1.8 % 08/21/20 07:35 Baso % (Auto) 0.2 % 08/21/20 07:35 Reticulocyte % (Auto) 6.1 % (0.5-2.0) H 08/01/20 06:04 Neut # (Auto) 2.48 K/uL (1.4-6.5) 08/21/20 07:35 Lymph # (Auto) 2.77 K/uL (1.2-3.4) 08/21/20 07:35 Banks # (Auto) 0.33 K/uL (0.11-0.59) 08/21/20 07:35 Eos # (Auto) 0.10 K/uL (0-0.5) 08/21/20 07:35 Baso # (Auto) 0.01 K/uL (0-0.2) 08/21/20 07:35 Reticulocyte # 0.13 10^6/uL (0.02-0.10) H 08/01/20 06:04 Immature Gran # (Auto) 0.01 K/uL (0.00-0.02) 08/21/20 07:35 Absolute Nucleated RBC 0.13 K/uL (0-0) H 08/21/20 07:35 Nucleated RBC % (auto) 2.3 % 08/21/20 07:35 Hypersegmented Neuts 1+ 08/17/20 06:29 Hyposegmented Neuts 1+ 08/10/20 08:58 Toxic Granulation 1+ 08/16/20 06:19 Polychromasia 1+ 08/21/20 07:35 Poikilocytosis Present 08/18/20 08:25 Anisocytosis Present 08/21/20 07:35 Macrocytosis Present 08/16/20 06:19 Pappenheimer Bodies 1+ 08/03/20 07:21 Sickle Cells Occasional 08/03/20 07:21 Target Cells 2+ 08/21/20 07:35 Tear Drop Cells 1+ 08/20/20 06:00 Ovalocytes 1+ 08/05/20 08:53 Booth-Athalia Bodies 1+ 08/19/20 07:18 PT 10.5 Seconds (9.0-12.0) 07/26/20 00:43 INR 1.0 (0.9-1.1) 07/26/20 00:43 APTT 21.3 Seconds (21.0-31.0) 07/26/20 00:43 PTT Ratio 0.8 07/26/20 00:43 Sodium 136 mmol/L (136-145) 08/19/20 07:18 Potassium 3.7 mmol/L (3.5-5.1) 08/19/20 07:18 Chloride 104 mmol/L (98-107) 08/19/20 07:18 Carbon Dioxide 25 mmol/L (21-32) 08/19/20 07:18 Anion Gap 7.0 (3-11) 08/19/20 07:18 BUN 8 mg/dl (7-18) 08/19/20 07:18 Creatinine 0.39 mg/dl (0.6-1.2) L 08/19/20 07:18 Est Cr Clr Drug Dosing 229.8 ml/min 08/19/20 07:18 Est GFR ( Amer) > 150.0 ml/min 08/19/20 07:18 Est GFR (Non-Af Amer) 149.1 ml/min 08/19/20 07:18 BUN/Creatinine Ratio 21.2 (10-20) H 08/19/20 07:18 Glucose 89 mg/dl (70-99) 08/19/20 07:18 Calcium 9.2 mg/dl (8.5-10.1) 08/19/20 07:18 Total Bilirubin 0.7 mg/dl (0.2-1) D 08/17/20 06:29 Direct Bilirubin 0.3 mg/dl (0-0.2) H 08/01/20 06:04 AST 38 U/L (15-37) H 08/17/20 06:29 ALT 63 U/L (12-78) 08/17/20 06:29 Alkaline Phosphatase 93 U/L (45-117) 08/17/20 06:29 Total Creatine Kinase 44 U/L (26-192) 08/01/20 06:04 Troponin I < 0.015 ng/ml (0-0.045) 08/01/20 06:04 Total Protein 7.4 gm/dl (6.4-8.2) 08/17/20 06:29 Albumin 3.4 gm/dl (3.4-5.0) 08/17/20 06:29 Globulin 4.0 gm/dl (2.5-4.0) 08/17/20 06:29 Albumin/Globulin Ratio 0.8 (0.9-2) L 08/17/20 06:29 25-OH Vitamin D Total 20.7 ng/ml (30-100) L 08/16/20 10:18 HCG, Qual Negative (Negative) 07/26/20 00:44 Specimen Hemolysis 08/10/20 08:58 COVID-19 Eval Order Covid19 at [facility] 07/26/20 01:35 SARS-CoV-2 (PCR) NEGATIVE (Negative) 07/26/20 01:35 Blood Type B Positive 08/02/20 10:54 Antibody Screen NEGATIVE 08/02/20 10:54 Crossmatch See Detail 08/02/20 10:54 Resident Activity Tracking Resident Involvement: Resident Care Provided Care Provided: Adult Hospital Medicine
[2020-08-27] MEDS: POLYETHYLENE (MIRALAX) 17 GM PACK PO SCH (09:27)
[2020-08-27] MEDS: ENOXAPARIN INJ 30 MG/0.3 ML SYR SQ SCH (09:27)
[2020-08-27] MEDS: PREGABALIN 150 MG CAP PO SCH ×2 (09:31→20:26)
[2020-08-27] MEDS: busPIRone 15 MG TAB PO SCH ×3 (09:31→20:31)
[2020-08-27] MEDS: TAPENTADOL HCL 50 MG TAB PO SCH ×4 (09:31→20:26)
[2020-08-27] MEDS: TAPENTADOL HCL ER 50 MG TABCR PO SCH ×2 (09:31→20:26)
[2020-08-27] MEDS: CEROVITE ADV FORMULA TAB PO SCH (09:31)
[2020-08-27] MEDS: HYDROXYUREA 500 MG CAP PO SCH ×2 (09:31→20:31)
[2020-08-27] MEDS ORDERED: CYCLOBENZAPRINE HCL 5 MG TAB PO STA (09:38)
[2020-08-27] MEDS ORDERED: TAPENTADOL HCL 50 MG TAB PO SCH (12:00)
--- NOTE | 2020-08-27 13:50 | Billing Data ---
Date of Service August 26, 2020 Coding Level of Care Code 39536 Subseq Hosp Care Lvl 2
[2020-08-28] MEDS: HYDROmorphone INJ 1 MG/ML SYRINGE IV PRN ×7 (02:42→21:37)
[2020-08-28] MEDS: diphenhydrAMINE Capsule 25 MG CAP PO PRN (02:46)
[2020-08-28 08:39] LABS: Hematocrit (blood only) 27.4 % (37-47); Hemoglobin 9.6 g/dL (12.0-16.0); Mean Corpuscular Hemoglobin 37.2 pg (25-34); Mean Corpuscular Volume 106.2 fL (80-100); Mean Platelet Volume 9.4 fL (7.4-10.4); Nucleated RBC # (auto) 0.18 K/uL (0-0); Nucleated RBC % (auto) 3.2 %; Platelet Count 256 K/uL (130-400); RDW Coefficient of Variation 21.2 % (11.5-14.5); RDW Standard Deviation 80.7 fL (36.4-46.3); Red Blood Count 2.58 M/uL (4.2-5.4); White Blood Count 5.47 K/uL (4.8-10.8)
[2020-08-28 09:02] LABS: Anisocytosis Present; Basophils # (auto) 0.01 K/uL (0-0.2); Basophils % (auto) 0.2 %; Eosinophils # (auto) 0.11 K/uL (0-0.5); Immature Granulocytes # (auto) 0.01 K/uL (0.00-0.02); Immature Granulocytes % (auto) 0.2 %; Lymphocytes # (auto) 2.81 K/uL (1.2-3.4); Lymphocytes % (auto) 51.4 %; Monocytes # (auto) 0.36 K/uL (0.11-0.59); Monocytes % (auto) 6.6 %; Neutrophils # (auto) 2.17 K/uL (1.4-6.5); Neutrophils % (auto) 39.6 %; Poikilocytosis Present; Polychromasia 1+; Target Cells 1+
[2020-08-28 09:10] LABS: BUN Creatinine Ratio 22.3 (10-20); Blood Urea Nitrogen 12 mg/dl (7-18); Calcium 8.8 mg/dl (8.5-10.1); Carbon Dioxide 29 mmol/L (21-32); Chloride 104 mmol/L (98-107); Est GFR (African American) > 150.0 ml/min; Est GFR (Non-African American) 133.9 ml/min; Glucose 81 mg/dl (70-99); Potassium 3.7 mmol/L (3.5-5.1); Sodium 137 mmol/L (136-145)
[2020-08-28] MEDS: PREGABALIN 150 MG CAP PO SCH (09:21)
[2020-08-28] MEDS: TAPENTADOL HCL 50 MG TAB PO SCH ×4 (09:21→20:07)
[2020-08-28] MEDS: POLYETHYLENE (MIRALAX) 17 GM PACK PO SCH (09:23)
--- NOTE | 2020-08-28 09:27 | Hospitalist Progress Note ---
Date of Service August 28, 2020 Assessment & Plan (1) Chronic pain: Patient is a 20-year-old female well known to our service with PMHx. sickle cell disease and chronic pain, admitted on 07/26/2020 for acute vaso- occlusive sickle cell crisis, now resolved. Now has persistent pain that is not controlled with IV pain medications. Pain management consulted on 08/16 for further recs. Chronic Pain - Narcotic hyperanalgesia/chronic pain syndrome - scheduled pregabalin 150 mg BID, duloxetine 60 mg PO HS - scheduled tapentadol 150 mg ER BID, 50 mg Q4HWA SR. - In addition to Sickle cell pain and acquired chronic pain syndrome, she has a component of narcotic hyperalgesia that causes her to get more painful when narcotics are removed. She also experience a placebo effect of feeling improved pain control when receiving something that is not her narcotics. - Attempted increased dosing on 08/26 prior to abrupt cessation on AM of 08/27 to allow suppression of pain fibers and help her adjust to a chronic pain lifestyle. - After discussion with patient, delaying cessation to AM of 08/28 - will require large amounts of CBT/DBT? going forward psycho-somatic connection development against disease - Bowel Regimen with scheduled Miralax/Senna in addition to PRN Miralax/Docusate - Continue PT/OT Acute Vaso-occlusive sickle cell crisis, resolved - S/P 2 units pRBC transfusion. CXR without evidence of ACS. 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 Discussed requirements of pre-treatment with chemotherapy, potential for infertility & need for egg banking/donation. - will proceed forward with [place] [facility] [place] for near future Sleep Disturbance/Insomnia - Doxepin 25mg PO QHS - PRN Benadryl Anxiety/BPD - Continue Duloxetine and Buspirone 15mg TID GERD - Continue Protonix 40mg PO QHS FEN/GI: regular, DVT ppx: Lovenox 30mg SQ QAM Code: full code Dispo: med/surg Admission and Anticipated Discharge Date Admission Date: July 26, 2020 Supervising Physician Co-Signing Physician Notes Attending attestation Pt seen and examined in concert with Dr. Szuminski. In agreement with the documented findings as noted in the resident documentation with any exceptions or additions as noted here. Resting comfortably in bed, no complaint at time of examination. Concerned re: worsening pain with continued narcotic wean but willing to continue same after risk v. benefit. On examination, S1/S2 nl RRR no MCG. CTAB. Abd NT/ND BS+ve Chronic pain syndrome w/ narcotic hyperanagesia - pain mgmt consult - continue pregabalin, duloxetine, tapentadol. Wean Dilaudid. Constipation - continue bowel regimen Acute vaso-occlusive crisis - resolved Else see resident documentation as noted. Subjective Patient seen and evaluated at bedside this morning. No acute events overnight. Patient reports continued pain, unchanged from yesterday. Discussed at length the need to exert herself physically due to the risk of current pain being partially caused and exacerbated by being sedentary in the hospital for so long, while noting the reality of sickle crisis pain. Patient was agreeable with plan to engage in PT today, though she requested one additional day of dilauded IV to help her cope with the transition. No new symptoms. Patient denies SOB, nausea, vomiting, lightheadedness, dizziness, weakness, confusion, or other symptoms. Review of Systems Review of Systems: See HPI Physical Exam Physical Exam: Constitutional: tired-appearing, laying in bed, no acute distress CV: regular rhythm, no murmur appreciated, extremities well-perfused Resp: CTABL, no wheezes/rales/rhonchi appreciated, no increased work of breathing Skin: warm, dry, no rash appreciated Neuro: AOx4, no focal neurological deficits appreciated Psych: cooperative, pleasant, appropriate rate/volume/quantity of speech Results & Data Results & Data ([facility]) Vital Signs (Past 12 Hours) Vital Signs Temp Pulse Resp BP Pulse Ox 08/28/20 08:14 36.7 C 90 16 104/63 96 08/27/20 22:37 36.6 C 89 16 93/61 L 97 Resident Activity Tracking Resident Involvement: Resident Care Provided Care Provided: Adult Hospital Medicine
[2020-08-28] MEDS: ENOXAPARIN INJ 30 MG/0.3 ML SYR SQ SCH (09:35)
[2020-08-28] MEDS: busPIRone 15 MG TAB PO SCH ×3 (09:35→21:40)
[2020-08-28] MEDS: CEROVITE ADV FORMULA TAB PO SCH (09:36)
[2020-08-28] MEDS: HYDROXYUREA 500 MG CAP PO SCH ×2 (09:36→21:42)
[2020-08-28] MEDS: TAPENTADOL HCL ER 50 MG TABCR PO SCH ×2 (09:36→21:42)
[2020-08-28] MEDS: ONDANSETRON 8MG OD TAB PO PRN (18:38)
[2020-08-29] MEDS: HYDROmorphone INJ 1 MG/ML SYRINGE IV PRN ×2 (00:41→04:03)
[2020-08-29] MEDS: diphenhydrAMINE Capsule 25 MG CAP PO PRN (04:07)
[2020-08-29] MEDS: ONDANSETRON 8MG OD TAB PO PRN ×2 (04:08→09:03)
--- NOTE | 2020-08-29 07:55 | Hospitalist Progress Note ---
Date of Service August 29, 2020 Assessment & Plan (1) Chronic pain: Patient is a 20-year-old female well known to our service with PMHx. sickle cell disease and chronic pain, admitted on 07/26/2020 for acute vaso- occlusive sickle cell crisis, now resolved. Now has persistent pain that is not controlled with IV pain medications. Pain management consulted on 08/16 for further recs. Chronic Pain - Narcotic hyperanalgesia/chronic pain syndrome - scheduled pregabalin 150 mg BID, duloxetine 60 mg PO HS - scheduled tapentadol 150 mg ER BID, 50 mg Q4HWA SR. - In addition to Sickle cell pain and acquired chronic pain syndrome, she has a component of narcotic hyperalgesia that causes her to get more painful when narcotics are removed. She also experience a placebo effect of feeling improved pain control when receiving something that is not her narcotics. - Attempted increased dosing on 08/26 prior to abrupt cessation on AM of 08/27 to allow suppression of pain fibers and help her adjust to a chronic pain lifestyle. - After discussion with patient, delaying cessation to AM of 08/28 - will require large amounts of CBT/DBT? going forward psycho-somatic connection development against disease - Bowel Regimen with scheduled Miralax/Senna in addition to PRN Miralax/Docusate - Continue PT/OT Acute Vaso-occlusive sickle cell crisis, resolved - S/P 2 units pRBC transfusion. CXR without evidence of ACS. 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 Discussed requirements of pre-treatment with chemotherapy, potential for infertility & need for egg banking/donation. - will proceed forward with recommendation [place] [facility] [place] transfusions for near future Sleep Disturbance/Insomnia - Doxepin 25mg PO QHS - PRN Benadryl Anxiety/BPD - Continue Duloxetine and Buspirone 15mg TID GERD - Continue Protonix 40mg PO QHS FEN/GI: regular, DVT ppx: Lovenox 30mg SQ QAM Code: full code Dispo: med/surg Admission and Anticipated Discharge Date Admission Date: July 26, 2020 Results & Data Results & Data ([facility]) Vital Signs (Past 12 Hours) Vital Signs Temp Pulse Resp BP Pulse Ox 08/28/20 22:38 36.8 C 80 15 109/70 98
[2020-08-29] MEDS: TAPENTADOL HCL 50 MG TAB PO SCH ×3 (09:02→16:30)
[2020-08-29] MEDS: TAPENTADOL HCL ER 50 MG TABCR PO SCH (09:02)
[2020-08-29] MEDS: POLYETHYLENE (MIRALAX) 17 GM PACK PO SCH (09:02)
[2020-08-29] MEDS: HYDROXYUREA 500 MG CAP PO SCH (09:04)
[2020-08-29] MEDS: CEROVITE ADV FORMULA TAB PO SCH (09:04)
[2020-08-29] MEDS: busPIRone 15 MG TAB PO SCH ×2 (09:04→13:28)
[2020-08-29] MEDS: ENOXAPARIN INJ 30 MG/0.3 ML SYR SQ SCH (09:05)
[2020-08-29] MEDS ORDERED: PREGABALIN 150 MG CAP PO SCH (09:15)
--- NOTE | 2020-08-29 18:48 | Discharge Summary ---
Date of Service August 29, 2020 Admission HPI Per Admitting Provider Donta Sharath is a 20yo female with history of Sickle Cell Anemia, AVN of bilateral hips, PNES, GERD and Depression presenting with complaints of body pain consistent with her sickle cell pain crises. Patient reports chronic body pain. She presents today with acute worsening of severe pain - predominantly in her abdomen, back, legs and arms. She has some mild chest pain as well. She denies fevers/chills/cough/SOB. She has had some nausea but denies vomiting/diarrhea. No additional complaints. ER Course: Zofran, magnesium, Dilaudid, Tylenol, Dextrose/NSS Admission Exam Per Admitting Provider General: NAD, appear uncomfortable but non-toxic in appearance, AA&O x 4 Skin: warm, dry, intact, no rashes or lesions HEENT: NC/AT, PERRL, EOMI, anicteric sclera, conjunctiva without injection, external ear normal to inspection and nontender, nares patent, moist mucus membranes, dentition intact, no oropharyngeal lesions, neck supple, trachea midline, no LAD, no thyromegaly, no JVD Heart: +S1/S2, regular, no m/r/g Lungs: equal air entry bilaterally, no rales/rhonchi/wheezes Abd: +BS, soft, ND, tender to palpation with no rebound/guarding/peritoneal signs, no masses/organomegaly/ascites Ext: warm, 2+ pulses in UE/LE bilaterally, no clubbing/cyanosis or edema Neuro: nonfocal, patient AA&O x 4, speech intact, no facial droop, moving all extremities on command with equal strength 5/5 Principal Diagnosis Sickle crisis Discharge Data Allergies Allergy/AdvReac Type Severity Reaction Status Date / Time No Known Allergies Allergy Verified 07/26/20 00:08 Consultations 07/26/20 02:02 ED Decision to Admit Stat 08/10/20 02:09 Consult Patient Rep / Service Excellence [Consult Patient Services] Routine 08/15/20 16:00 Consult Pain Management Routine Ordered Studies 08/01/20 08:52 US gallbladder Routine 08/11/20 16:03 MR brain wo con Routine Hospital Course (1) Chronic pain: Sickle cell disease, chronic pain Patient was continued on folic acid and hydroxyurea during her stay. Patient's pain was managed with a combination of oral and IV opiates, with frequent adjustments made based on level of pain control. Patient's pain worsened, and patient's Hgb/Hct were closely monitored for signs of acute sickle crisis. On hospital day six, patient's hematocrit fell below 25, and patient was transfused with 2u pRBC. CXR was without evidence of ACS. Patient did not show symptomatic improvement, but Hgb/Hct improved and remained stable. Options for hematopoietic stem cell transplant were discussed as an option for longterm SCD control/improvement. Details of required pre-treatment with chemotherapy and potential for infertility, and need for egg banking/donation were discussed with patient. Treatment team recommended referral [facility] for outpatient exchange transfusions in the near future. PCP follow-up was recommended. Chronic pain Patient's pain improved a bit over time, but achieving adequate pain control was an ongoing struggle. Concern grew that patient's pain was exacerbated by laying sedentary during an extended hospital stay. Patient was encouraged to ambulate daily, but this was challenging as engagement was limited by pain. Pain management was consulted and recommended nycunta ER 100mg twice daily and nucynta SR 50mg three times daily, while tapering patient's IV dilauded down to 1.25mg IV [id number]. Pain management recommended temporary increase of IV dilauded on hospital day 32 (August 27) with abrupt cessation planned for day 33 (August 28). Abrupt cessation was delayed until August 29 after discussion with patient. Patient fully engaged with physical therapy that day, and the next day, IV dilauded was abruptly discontinued. Prior to abrupt discontinuation, patient had been receiving dilauded 1.25mg IV about every 5 hours, in addition to nucynta ER 100mg twice daily and nucynta SR 50mg three times daily. After discontinuation of dilauded, patient reported adequate pain control throughout the day, and in the afternoon felt ready for discharge. Pain management felt discharge was appropriate. Patient was discharged with one week of nucynta ER 100mg twice daily, and one week of nucynta SR 50mg three times daily, with close PCP follow-up necessary to plan a pain management taper. Insomnia Patient's insomnia in the hospital was treated with doxepin and as-needed jaelyn dryl. Anxiety/BPD Patient's home duloxetine and buspirone were continued during her hospitalization. GERD Patient's home protonix was continued during her hospitalization. Total Time Total Time Spent Total Time Spent (In Minutes): see attending documentation Discharge Plan Discharge Items Patient Disposition: Home - Self-Care Reason For Visit: SICKLE CELL CRISIS Discharge Diagnosis: Sickle cell crisis Activity: Resume your previous activity Non-emergency contact: Primary Care Provider Call non-emergency contact if: you have any medication questions and your symptoms worsen Follow-up/Referrals: Zamzam Bailey MD [Primary Care Provider] - 09/01/20 9:10 am (APPOINTMENT WITH DR PINTO) Diet: Regular Addtl Attending Provider Instructions: You were admitted to the hospital for sickle cell pain crisis. You were treated with IV and oral pain medications. Your pain has stabilized on oral medication, and we feel it is safe for you to return home. A discharge summary will be sent to your primary care physician to ensure continuity of care. Please bring this discharge summary with you to your next office appointment so that your provider can review it at that time. Follow-up appointments: Make a follow-up appointment with your PCP within the next week. It is very important that you follow up with them shortly after discharge from the hospital. Keep all your follow-up appointments as already scheduled. If you cannot make an appointment, notify your provider. Medications: Your medication list has been reviewed and reconciled upon discharge to ensure accuracy and continuity of care. An updated list of all your medications is included with your hospital discharge paperwork. Please review this list closely, and make note of any changes. * We sent a new medication called Nucynta ER to your pharmacy. Take Nucynta ER (100mg) one tablet twice daily. * We sent a new medication called Nucynta SR to your pharmacy. Take Nucynta SR (50mg) one tablet three times daily. * We sent a new medication called Lyrica to your pharmacy. Take Lyrica (150mg) one tablet daily. Take your medications as instructed; do not skip a dose of your medicines. Make sure all of your doctors know every medicine you are taking (including afrf-mhm-akrwmws medicines, vitamins, and supplements). Call your primary care provider before taking any new medicines (including kwmt-zvd-qfqnhyj medicines, vitamins, and supplements), because some of these may interact with your current medications, or may make your symptoms worse. Tell your primary care provider if you cannot afford your medications. CONTACT YOUR PRIMARY CARE PROVIDER if you experience any of the following: Uncontrollable pain Fever, chest pain, or shortness of breath Difficulty following your treatment plan, or difficulty taking medications CALL 911 OR GO TO THE EMERGENCY DEPARTMENT if you experience any of the following: Sudden, severe abdominal pain or nausea/vomiting Severe chest pain, or chest pain that radiates (moves) to your jaw or arm Sudden, severe shortness of breath or difficulty breathing Thank you for allowing us to participate in your care. Pending Studies at Discharge: No Stand-Alone Forms: [facility] Medications and DC Order Prescriptions: New Nucynta ER 150 mg tablet extended release 12 hr 150 mg PO BID Qty: 14 RF: 0 Nucynta 50 mg tablet 50 mg PO Q8H MDD 3 tabs (150mg) PRN (Reason: pain) Qty: 20 RF: 0 Narcan 4 mg/actuation spray,non-aerosol 1 spray intranasal Q3M Qty: 2 RF: 0 Continued folic acid 1 mg Tablet 2 mg PO HS RF: 0 pantoprazole 40 mg tablet,delayed release (DR/EC) 40 mg PO HS RF: 0 buspirone 15 mg tablet 45 mg PO HS RF: 0 duloxetine 60 mg capsule,delayed release(DR/EC) 60 mg PO HS RF: 0 hydroxyurea 500 mg Capsule 1,000 mg PO BID 30 Days Qty: 120 RF: 1 doxepin 25 mg Capsule 25 mg PO HS PRN (Reason: sleep) Qty: 10 RF: 0 polyethylene glycol 3350 [Miralax] 17 gram Powder In Packet 17 g PO BID Qty: 100 RF: 0 sennosides [Senokot] 8.6 mg Tablet 17.2 mg PO QAM Qty: 60 RF: 0 diclofenac sodium 1 % Gel 4 g TOPICAL QID RF: 0 Discontinued oxycodone-acetaminophen 5-325 mg tablet 1 tab PO TID PRN (Reason: Pain) RF: 0 Discharge Orders: Discharge Order (Routine); Ordered 08/29/20 Ordered By: Tom Castrejon Admission Data Admit Date/Time: 07/26/20 02:50 Attending Provider: Jamie Shaw Admit Provider: Jaymie Castrejon Primary Care Provider: Zamzam Bailey Other Providers: Jaymie Castrejon ; Selam Kaye ; Cesar Kerr ; Monica Murguia ; Caty Serna Other Interventions: Discharge Summary Assessment (RN) Last Done: 08/29/20 16:34 Supervising Physician Co-Signing Physician Notes Attending attestation Pt seen and examined in concert with Dr. German. In agreement with the documented findings as noted in the resident documentation with any exceptions or additions as noted here. Pain has been stable at chronic, tolerable baseline controlled on present medication regimen per patient today. Would prefer discharge to continue taper off pain medications in outpatient with PCP rather than here now that the IV d ilaudid was discontinued this AM at 0500. On examination, AAOx3, NAD. CNII-XII grossly intact. Mood affect congruence without pressured speech. Chronic pain w/ opiate hyperanagesia - after discussion of pros and cons, will continue present regimen as outpatient. On discussion with pain mgmt, current PO regimen is appropriate for rapid outpatient taper considering risk of complications in the setting of personality disorder. Discussion with PCP (Dr. Bailey) re: rapid follow up appointment and continued taper with short follow ups (1 wk) with concomittant supply especially with history of nonadherence with patient appointments in the outpatient setting. Else see resident documentation as noted. Total attending time spent on this case on the day of discharge: 50 minutes.
--- NOTE | 2020-09-12 13:35 | Billing Data ---
Date of Service August 27, 2020 Coding Level of Care Code 80483 Subseq Hosp Care Lvl 1
== END 2020-08-29 16:52 | disposition home or self-care (01) | DRG 812 ==
LOC: ED 23:13 → 3W 07-26 02:50 → SUATTDRO 07-26 02:50 → 3W 07-26 03:10
DX: R45.86 Emotional lability; G89.4 Chronic pain syndrome; K21.9 Gastro-esophageal reflux disease without esophagitis; F60.3 Borderline personality disorder; F17.290 Nicotine dependence, other tobacco product, uncomplicated; R07.89 Other chest pain; J02.9 Acute pharyngitis, unspecified; E86.0 Dehydration; Z20.822 Contact with and (suspected) exposure to COVID-19; M79.2 Neuralgia and neuritis, unspecified; F41.9 Anxiety disorder, unspecified; R11.0 Nausea; T40.2X5A Adverse effect of other opioids, initial encounter; R40.0 Somnolence; G47.00 Insomnia, unspecified; G89.29 Other chronic pain; R56.9 Unspecified convulsions; D57.00 Hb-SS disease with crisis, unspecified; R94.5 Abnormal results of liver function studies; F33.2 Major depressive disorder, recurrent severe without psychotic features; K59.00 Constipation, unspecified; R20.3 Hyperesthesia; Z79.899 Other long term (current) drug therapy

== ENCOUNTER 2020-09-04 17:06 | Inpatient (IN) ==
[2020-09-04] MEDS ORDERED: KETOROLAC 30 MG/ML VIAL IV ONE (20:55)
[2020-09-04] MEDS ORDERED: TAPENTADOL HCL 50 MG TAB PO ONE (20:57)
[2020-09-04 21:13] LABS: Alanine Aminotransferase 26 U/L (12-78); Albumin Level 4.5 gm/dl (3.4-5.0); Aspartate Aminotransferase 21 U/L (15-37); BUN Creatinine Ratio 13.5 (10-20); Blood Urea Nitrogen 7 mg/dl (7-18); Calcium 9.1 mg/dl (8.5-10.1); Carbon Dioxide 25 mmol/L (21-32); Chloride 110 mmol/L (98-107); Est GFR (African American) > 150.0 ml/min; Est GFR (Non-African American) 135.6 ml/min; Glucose 75 mg/dl (70-99); Potassium 4.1 mmol/L (3.5-5.1); Sodium 141 mmol/L (136-145)
[2020-09-04 21:15] LABS: Alkaline Phosphatase 86 U/L (45-117); Bilirubin,Total 1.3 mg/dl (0.2-1); Globulin 4.6 gm/dl (2.5-4.0); Total Protein 9.1 gm/dl (6.4-8.2)
[2020-09-04 21:40] LABS: Basophils # (auto) 0.01 K/uL (0-0.2); Basophils % (auto) 0.1 %; Eosinophils # (auto) 0.09 K/uL (0-0.5); Eosinophils % (auto) 1.3 %; Hematocrit (blood only) 29.7 % (37-47); Hemoglobin 10.5 g/dL (12.0-16.0); Immature Granulocytes # (auto) 0.01 K/uL (0.00-0.02); Immature Granulocytes % (auto) 0.1 %; Lymphocytes # (auto) 3.14 K/uL (1.2-3.4); Lymphocytes % (auto) 44.7 %; Mean Corpuscular Hemoglobin 38.2 pg (25-34); Mean Corpuscular Hgb Conc 35.4 g/dL (32-36); Mean Platelet Volume 9.8 fL (7.4-10.4); Monocytes # (auto) 0.62 K/uL (0.11-0.59); Monocytes % (auto) 8.8 %; Neutrophils # (auto) 3.16 K/uL (1.4-6.5); Nucleated RBC # (auto) 0.05 K/uL (0-0); Nucleated RBC % (auto) 0.8 %; Platelet Count 274 K/uL (130-400); RDW Coefficient of Variation 22.1 % (11.5-14.5); RDW Standard Deviation 86.5 fL (36.4-46.3); Red Blood Count 2.75 M/uL (4.2-5.4); Reticulocytes # 0.25 10^6/uL (0.02-0.10); White Blood Count 7.03 K/uL (4.8-10.8)
--- NOTE | 2020-09-04 21:49 | Emergency Department Note ---
Impression & Plan Acute leg pain, Sickle cell anemia ED Provider Note INFORMANT: Patient ED PROVIDER(S): Tanner Valenzuela MD CHIEF COMPLAINT: Leg pain PLAN: Disposition: Admitted Condition: Good Outpatient prescription management: none Referral: None MEDICAL DECISION MAKING: Patient presented with complaints of leg pain and was directed here for admission secondary to her sickle cell anemia. Blood work was obtained. The patient was hydrated. She was given Toradol and her home Nucynta. The patient was seen and examined with Dr. Bailey, resident physician, who is also her primary physician. We discussed the case and treatments ordered, reviewed the results, and determine the disposition. I have been directly involved with the management and disposition as well as independently evaluated the patient as documented in this note. The patient does have a mild anemia on CBC. No leukocytosis. Consultation was made with Dr. Chandler Mena of the [facility] service. Patient was evaluated in the ER for further management. Triage Nursing notes reviewed and agree them. Vital Signs: reviewed and remarkable for no significant abnormalities Differential diagnosis: Infection, dehydration, metabolic abnormality, hypo/hyperglycemia, electrolyte disturbance, anemia, hypoxia, cardiac sources, intracerebral event, toxicologic, neurologic, as well as other pathologies. Diagnostics interpreted by me: ECG: none Cardiac Monitoring: none Imaging studies: Deferred HPI: The patient is a 20 year old female who presents to the Emergency Room with complaints of bilateral leg pain. This started 5 days ago and is similar to prior issues with her sickle cell anemia. The patient also notes the following associated symptoms, mild nausea. The patient has has been using her prescribed medications for relieving factors. Current pain is rated as 7/10. Patient was seen by the physician group earlier today and referred to the ER for admission. pt denies LOC, headache, fevers, chills, diaphoresis, visual changes, neck pain, chest pain, breathing difficulties, vomiting, abdominal pain, back pain, melena, hematochezia, urinary symptoms, numbness, weakness, lymphadenopathy, rash, or other complaints. ROS: See above HPI for pertinent positives & negatives. A total of 10 systems reviewed and were otherwise negative. PAST MEDICAL HISTORY:See Below , sickle cell anemia PAST SURGICAL HISTORY:See Below, FAMILY HISTORY:See Below SOCIAL HISTORY:See Below, non-smoker HOME MEDICATIONS:See Below ALLERGIES:See Below VITALS:See Below PHYSICAL EXAMINATION: GENERAL: Awake, alert, w uncomfortable ell-appearing, in no distress HENT: Normocephalic, atraumatic. Oropharynx unremarkable. EYES: Normal conjunctiva. Sclera non-icteric. NECK: Inspection normal. Non-tender. Supple. No nuchal rigidity. FROM. No masses. RESPIRATORY: Clear to auscultation. No wheezes. No rales. Normal respiratory effort. CARDIAC: Normal rate. Normal rhythm. No murmurs. No rubs. Extremities warm and well perfused. Pulses equal. No JVD. GI: Soft, non-distended. No tenderness to palpation. No rebound or guarding. No masses. RECTAL: Deferred. MUSCULOSKELETAL: Atraumatic. Chest examination reveals no tenderness. The back is symmetrical on inspection without obvious abnormality. There is no CVA tenderness to palpation. No joint edema. LOWER EXTREMITIES: Calves are equal size bilaterally and non-tender. No edema. No discoloration. NEURO: Normal sensorium. No sensory or motor deficits noted. SKIN: No rash or jaundice noted. Tanner Valenzuela MD Past Med/Surg History Medical History (Updated 09/04/20 @ 21:49 by Tanner Valenzuela MD) Borderline personality disorder Chronic pain Depression Murmur, cardiac Nausea Pneumonia Pseudoseizures Seizure-like activity Sickle cell anemia Sickle cell crisis Suicide gesture Surgical History No pertinent past surgical history Family History Mother Hypertension Father Ulcer Other Family history non-contributory Social History Smoking Status: Never smoker Tobacco Type: E-cigarettes / Vaping Second Hand Exposure: Yes; Hx Alcohol Use: Yes Alcohol type: hard liquor Hx Substance Use: No Preferred Language: Monegasque Communication Ability: Effective Traffic Clerk Required: No Beliefs That Will Affect Care: None marital status: Single Current Living Situation: Other Current Living Situation Comment: apartment with roommates 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 current occupation: [employer] major Feels Safe at Home: Yes Assistive Devices: None Allergies Allergies Allergy/AdvReac Type Severity Reaction Status Date / Time No Known Allergies Allergy Verified 09/04/20 21:15 Home Meds Home Medications Medication Instructions Recorded Confirmed folic acid 1 mg tablet 2 mg PO HS 11/18/19 09/04/20 buspirone 15 mg tablet 45 mg PO HS 01/22/20 09/04/20 pantoprazole 40 mg tablet,delayed 40 mg PO HS 01/22/20 09/04/20 release duloxetine 60 mg capsule,delayed 60 mg PO HS 04/17/20 09/04/20 release diclofenac sodium 1 % topical gel 4 g TOPICAL QID 07/26/20 09/04/20 naloxone 4 mg/actuation nasal 1 spray INTRANASAL .Q3 MINUTES PRN 09/04/20 09/04/20 spray (Narcan) Previous Rx's Medication Instructions Recorded hydroxyurea 500 mg capsule 1,000 mg PO BID 30 Days #120 cap 05/01/20 doxepin 25 mg capsule 25 mg PO HS PRN #10 cap 07/06/20 polyethylene glycol 3350 17 gram 17 g PO BID #100 ea 07/06/20 oral powder packet (Miralax) sennosides 8.6 mg tablet (Senokot) 17.2 mg PO QAM #60 tab 07/06/20 tapentadol 150 mg tablet,extended 150 mg PO BID #14 tab 08/29/20 release,12 hr (Nucynta ER) tapentadol 50 mg tablet (Nucynta) 50 mg PO Q8H PRN #20 tab MDD 3 08/29/20 tabs (150mg) Results & Data (ED) Vital Signs Vital Signs - 24 hr 09/04/20 17:46 Temperature 36.6 C Temperature Source Temporal Artery Scan Pulse Rate 79 Pulse Rhythm Regular Pulse Strength Normal Respiratory Rate 18 Respiratory Effort / Characteristics Non-Labored Spontaneous Respiratory Depth Normal Respiratory Pattern Regular Blood Pressure 102/73 Blood Pressure Mean 82 Pulse Oximetry 99 Oxygen Delivery Method Room Air Sepsis Recent Fever Within 48 Hours No Sepsis New/Unexplained Change in Mental Status No Sepsis Action Taken by Nursing No Action Required Laboratory Data Result diagrams: 09/04/20 21:33 09/04/20 19:32 Lab Results 09/04/20 09/04/20 09/04/20 Range/Units 19:32 19:32 21:33 WBC Cancelled 7.03 RBC Cancelled 2.75 L Hgb Cancelled 10.5 L Hct Cancelled 29.7 L MCV Cancelled 108.0 H MCH Cancelled 38.2 H MCHC Cancelled 35.4 RDW Std Deviation Cancelled 86.5 H RDW Coeff of Nando Cancelled 22.1 H Plt Count Cancelled 274 MPV Cancelled 9.8 Immature Gran % (Auto) Cancelled 0.1 Neut % (Auto) Cancelled 45.0 Lymph % (Auto) Cancelled 44.7 [place] % (Auto) Cancelled 8.8 Eos % (Auto) Cancelled 1.3 Baso % (Auto) Cancelled 0.1 Reticulocyte % (Auto) Cancelled 9.0 H Neut # (Auto) Cancelled 3.16 Lymph # (Auto) Cancelled 3.14 [place] # (Auto) Cancelled 0.62 H Eos # (Auto) Cancelled 0.09 Baso # (Auto) Cancelled 0.01 Reticulocyte # Cancelled 0.25 H Immature Gran # (Auto) Cancelled 0.01 Absolute Nucleated RBC Cancelled 0.05 H Nucleated RBC % (auto) Cancelled 0.8 Neutrophils % (Manual) Cancelled Band Neutrophils % Cancelled Lymphocytes % (Manual) Cancelled Prolymphocyte % Cancelled Reactive Lymphs % (Man) Cancelled Monocytes % (Manual) Cancelled Eosinophils % (Manual) Cancelled Basophils % (Manual) Cancelled Metamyelocytes % (Man) Cancelled Myelocytes % (Man) Cancelled Promyelocytes % (Man) Cancelled Blast Cells % (Manual) Cancelled Plasma Cell % (Manual) Cancelled Other Cells % Cancelled Nucleated RBC % Cancelled Neutrophils # (Manual) Cancelled Band Neutrophils # Cancelled Total Absolute Neuts Cancelled Lymphocytes # (Manual) Cancelled Prolymphocyte # Cancelled Reactive Lymphs # Cancelled Total Abs Lymphocytes Cancelled Monocytes # (Manual) Cancelled Eosinophils # (Manual) Cancelled Basophils # (Manual) Cancelled Metamyelocytes # (Man) Cancelled Myelocytes # (Manual) Cancelled Promyelocytes # (Man) Cancelled Blast Cells # (Man) Cancelled Plasma Cell # (Manual) Cancelled Other Cells # Cancelled Nucleated RBCs # (Man) Cancelled Hypersegmented Neuts Cancelled Hyposegmented Neuts Cancelled Hypogranular Neuts Cancelled Large Granular Lymphs Cancelled # Lrg Granular Lymphs Cancelled Hairy Cells Cancelled Smudge Cells Cancelled Toxic Granulation Cancelled Toxic Vacuolation Cancelled Dohle Bodies Cancelled Coral Rods Cancelled Platelet Estimate Cancelled Hypogranular Platelets Cancelled Clumped Platelets Cancelled Giant Platelets Cancelled Platelet Satelliting Cancelled RBC Morphology Cancelled Polychromasia Cancelled Hypochromasia Cancelled Poikilocytosis Cancelled Basophilic Stippling Cancelled Anisocytosis Cancelled Microcytosis Cancelled Macrocytosis Cancelled Spherocytes Cancelled Pappenheimer Bodies Cancelled Sickle Cells Cancelled Target Cells Cancelled Tear Drop Cells Cancelled Ovalocytes Cancelled Stomatocytes Cancelled [place] Bodies Cancelled Echinocytes Cancelled Acanthocytes (Spur) Cancelled Rouleaux Cancelled RBC Agglutinates Cancelled Schistocytes Cancelled RBC Morph Comment Cancelled Sezary Cell Cancelled Sodium 141 (136-145) mmol/L Potassium 4.1 (3.5-5.1) mmol/L Chloride 110 H (98-107) mmol/L Carbon Dioxide 25 (21-32) mmol/L Anion Gap 6.0 (3-11) BUN 7 (7-18) mg/dl Creatinine 0.52 L (0.6-1.2) mg/dl Est Cr Clr Drug Dosing Not Reportable Est GFR ( Amer) > 150.0 ml/min Est GFR (Non-Af Amer) 135.6 ml/min BUN/Creatinine Ratio 13.5 (10-20) Glucose 75 (70-99) mg/dl Calcium 9.1 (8.5-10.1) mg/dl Total Bilirubin 1.3 H (0.2-1) mg/dl AST 21 (15-37) U/L ALT 26 (12-78) U/L Alkaline Phosphatase 86 (45-117) U/L Total Protein 9.1 H (6.4-8.2) gm/dl Albumin 4.5 (3.4-5.0) gm/dl Globulin 4.6 H (2.5-4.0) gm/dl Albumin/Globulin Ratio 1.0 (0.9-2) Discharge Plan Visit Data Chief Complaint: Pain (Generalized) Stated Complaint: SICKEL CELL PAIN ED Provider: Tanner Valenzuela ED Midlevel Provider: Zamzam Bailey Discharge Problem: Acute leg pain, Sickle cell anemia Forms Stand Alone Forms: [facility] Prescriptions Prescriptions: No Action folic acid 1 mg Tablet 2 mg PO HS RF: 0 pantoprazole 40 mg tablet,delayed release (DR/EC) 40 mg PO HS RF: 0 buspirone 15 mg tablet 45 mg PO HS RF: 0 duloxetine 60 mg capsule,delayed release(DR/EC) 60 mg PO HS RF: 0 hydroxyurea 500 mg Capsule 1,000 mg PO BID 30 Days Qty: 120 RF: 1 doxepin 25 mg Capsule 25 mg PO HS PRN (Reason: sleep) Qty: 10 RF: 0 polyethylene glycol 3350 [Miralax] 17 gram Powder In Packet 17 g PO BID Qty: 100 RF: 0 sennosides [Senokot] 8.6 mg Tablet 17.2 mg PO QAM Qty: 60 RF: 0 diclofenac sodium 1 % Gel 4 g TOPICAL QID RF: 0 Nucynta ER 150 mg tablet extended release 12 hr 150 mg PO BID Qty: 14 RF: 0 Nucynta 50 mg tablet 50 mg PO Q8H MDD 3 tabs (150mg) PRN (Reason: pain) Qty: 20 RF: 0 Narcan 4 mg/actuation spray,non-aerosol 1 spray intranasal .Q3 MINUTES PRN (Reason: OVERSEDATION) RF: 0 Referrals Referrals: Zamzam Bailey MD [Primary Care Provider] -
--- NOTE | 2020-09-04 22:21 | History & Physical Report ---
Date of Service September 04, 2020 Assessment & Plan (1) Chronic pain: Plan: James Early 20-year-old female well known to [facility] service with past medical history significant for sickle cell disease and chronic pain; who presented to the ER following running out of home medications, and discussions with PCP regarding leg pain. Ambulatory dysfunction likely secondary to acute on Chronic Pain - Narcotic hyperanalgesia/chronic pain syndrome - scheduled Nucynta 150 mg ER BID, duloxetine 60 mg PO HS - Nucynta IR 50 mg q8h PRN for acute pain and prior to PT - Will attempt to avoid additional IV narcotics Chronic Sickle Cell Disease - Continue folic acid 2mg PO QHS, hydroxyurea 1000mg PO BID -No signs of acute vaso-occlusive crisis at this time Sleep Disturbance/Insomnia - Doxepin 25mg PO QHS - PRN Benadryl Anxiety/BPD - Continue Duloxetine and Buspirone 15mg TID GERD - Continue Protonix 40mg PO QHS Diet: Regular DVT ppx: Lovenox SQ (2) Sickle cell anemia: (3) Borderline personality disorder: History of Present Illness Chief Complaint: Leg pain/ambulatory dysfunction Primary Care Provider: Zamzam Bailey MD James Early 20-year-old female well known to [facility] service with past medical history significant for sickle cell disease and chronic pain; who presented to the ER following running out of home medications, and discussions with PCP regarding leg pain. Was seen earlier today in [facility] clinic for continued evaluation of this pain. Of note was recently discharged from hospital following extended stay for sickle cell crisis and chronic uncontrolled pain. Was transitioned to Nucynta ER 150 mg twice a day and Nucynta IR 50 mg 3 times a day. Endorses that over the last week since her discharge has been utilizing the IR formulation of Nucynta more frequently as result is out of this immediate release relief of her pain. Continues to endorse increased pain all over with feeling of severe weakness as a result of the pain. Allergies Allergy/AdvReac Type Severity Reaction Status Date / Time No Known Allergies Allergy Verified 09/04/20 21:15 Home Medications Medication Instructions Recorded Confirmed Type folic acid 1 mg tablet 2 mg PO HS 11/18/19 09/04/20 History buspirone 15 mg tablet 45 mg PO HS 01/22/20 09/04/20 History pantoprazole 40 mg tablet,delayed 40 mg PO HS 01/22/20 09/04/20 History release duloxetine 60 mg capsule,delayed 60 mg PO HS 04/17/20 09/04/20 History release hydroxyurea 500 mg capsule 1,000 mg PO BID 30 Days #120 cap 05/01/20 09/04/20 Rx doxepin 25 mg capsule 25 mg PO HS PRN #10 cap 07/06/20 09/04/20 Rx polyethylene glycol 3350 17 gram 17 g PO BID #100 ea 07/06/20 09/04/20 Rx oral powder packet (Miralax) sennosides 8.6 mg tablet (Senokot) 17.2 mg PO QAM #60 tab 07/06/20 09/04/20 Rx diclofenac sodium 1 % topical gel 4 g TOPICAL QID 07/26/20 09/04/20 History tapentadol 150 mg tablet,extended 150 mg PO BID #14 tab 08/29/20 09/04/20 Rx release,12 hr (Nucynta ER) tapentadol 50 mg tablet (Nucynta) 50 mg PO Q8H PRN #20 tab MDD 3 08/29/20 09/04/20 Rx tabs (150mg) naloxone 4 mg/actuation nasal 1 spray INTRANASAL .Q3 MINUTES PRN 09/04/2008/17 History spray (Narcan) Past Med/Surg History Medical History (Updated 09/04/20 @ 21:49 by Tanner Valenzuela MD) Borderline personality disorder Chronic pain Depression Murmur, cardiac Nausea Pneumonia Pseudoseizures Seizure-like activity Sickle cell anemia Sickle cell crisis Suicide gesture Surgical History No pertinent past surgical history Family History Mother Hypertension Father Ulcer Other Family history non-contributory Social History Smoking Status: Never smoker Tobacco Type: E-cigarettes / Vaping Second Hand Exposure: Yes; Do You Dip or Chew Tobacco: No; Tobacco Cessation Education Requested by Patient: No Hx Alcohol Use: Yes Alcohol type: hard liquor Hx Substance Use: No Preferred Language: Mohawk Communication Ability: Effective Illusionist Required: No Beliefs That Will Affect Care: None marital status: Single Current Living Situation: Other Current Living Situation Comment: apartment with roommates 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 current occupation: [employer] major Other Information That Helps Us Care for You: No Feels Safe at Home: Yes Safety Concerns: Feels Safe At This Time Assistive Devices: None Review of Systems Review of Systems: All systems reviewed & are unremarkable except as noted in HPI & below Physical Exam Constitutional: WD/WN, vitals as above Eyes: PERRL, conjunctivae normal, anicteric sclerae Respiratory: normal respiratory effort, lungs clear to auscultation Auscultation: no crackles, no rales, no rhonchi and no wheezes Cardiovascular: Rate/Rhythm: regular rate and regular rhythm Heart Sounds: no gallop, no murmur and no cardiac rub Vessels: normal peripheral pulses; no JVD Extremities: no edema Gastrointestinal (Abdomen): Inspection/Auscultation: normal bowel sounds; abdomen not distended Percussion/Palpation: abdomen soft; abdomen nontender and no guarding Musculoskeletal: no cyanosis or clubbing, extremities motor strength 5/5 Skin: no rashes, warm and dry Neurologic: PERRL, EOMI, accommodation nl, no face palsy, no dysarthria CN's II-XI intact bilaterally and moves all extremities Psychiatric: Orientation: alert and oriented x 3 Results & Data Results & Data ([facility]) Vital Signs (Past 12 Hours) Vital Signs Temp Pulse Resp BP Pulse Ox 09/04/20 17:46 36.6 C 79 18 102/73 99 Code Status & VTE Plan VTE Prophylaxis Plan VTE Prophylaxis will be ordered: Yes Supervising Physician Co-Signing Physician Notes Attending addendum: I have physically seen this patient, have supervised the medical residents activities, and agree with the H&P unless as otherwise noted. Assessment and Plan: Acute on chronic pain/chronic sickle cell disease- Continue outpatient regimen of Nucynta ER 150 mg p.o. twice daily and duloxetine 60 mg p.o. at bedtime. Continue outpatient Nucynta IR 50 mg p.o. every 8 hours as needed for breakthrough pain Chronic sickle cell disease- Continue folic acid 2 mg at bedtime and hydroxyurea 1000 mg p.o. twice daily GERD- Continue pantoprazole 40 mg at bedtime Anxiety/bipolar disorder- Continue duloxetine and buspirone Remaining orders and notations as noted Resident Activity Tracking Resident Involvement: Resident Care Provided Care Provided: Adult Hospital Medicine
[2020-09-04 23:05] LABS: Anisocytosis Present; Polychromasia 1+; Sickle Cells Occasional; Target Cells 1+
[2020-09-05] MEDS ORDERED: DOXEPIN HCL 25 MG CAPSULE PO PRN (01:19)
[2020-09-05] MEDS ORDERED: SODIUM CHLOR 0.45% + 20MEQ KCL 20 MEQ/1,000 ML BAG IV ONE (01:30)
[2020-09-05] MEDS: TAPENTADOL HCL 50 MG TAB PO PRN ×3 (01:50→22:44)
[2020-09-05] MEDS: ENOXAPARIN INJ 30 MG/0.3 ML SYR SQ SCH (05:34)
[2020-09-05] MEDS: HYDROXYUREA 500 MG CAP PO SCH ×2 (08:27→20:52)
[2020-09-05] MEDS: SENNA 8.6 MG TAB PO SCH (08:28)
[2020-09-05] MEDS: DICLOFENAC SOD 1% GEL 100 GM TUBE EXT SCH ×4 (08:28→20:51)
[2020-09-05] MEDS: POLYETHYLENE (MIRALAX) 17 GM PACK PO SCH ×2 (08:34→20:51)
[2020-09-05] MEDS: TAPENTADOL HCL ER 50 MG TABCR PO SCH ×2 (08:34→20:52)
[2020-09-05] MEDS ORDERED: ONDANSETRON 4 MG OD TAB PO PRN (09:15)
--- NOTE | 2020-09-05 09:24 | Hospitalist Progress Note ---
Date of Service September 05, 2020 Assessment & Plan (1) Chronic pain: Plan: Donta Early (Tomi) is a 20yo female well known to this resident hospitalist service, with PMH significant for sickle cell disease and chronic pain, who presented to the ER with worsening pain and ambulatory dysfunction after running out of home medications. Ambulatory dysfunction likely secondary to [id number] pain Patient well-known to this service with a long history of narcotic hyperanalgesia/chronic pain syndrome Continue duloxetine 60 mg PO HS Continue scheduled nucynta ER 150mg bid Continue nucynta IR 50mg q8h prn for acute pain Continue nycynta IR 50mg as needed for pain 30 minutes prior to PT (maximum one 50mg IR dose daily in addition to the three q8h IR doses above) Toradol 30mg given 09/05, will evaluate response No intravenous narcotics Nausea Possibly secondary to pain, anxiety, GERD Zofran 4-8mg q4h prn Sickle cell anemia Continue folic acid 2mg PO qhs Continue hydroxyurea 1000mg PO bid No signs of acute vaso-occlusive crisis at this time Insomnia Continue doxepin 25mg PO qhs Continue diphenhydraine 25mg PO qhs as needed Anxiety/BPD Continue duloxetine as above Continue buspirone 15mg tid GERD Continue protonix 40mg PO qhs FEN: regular diet Code status: full code DVT ppx: not indicated, patient ambulatory, short stay anticipated Consults: none Dispo: med/surg Admission and Anticipated Discharge Date Admission Date: September 04, 2020 Supervising Physician Co-Signing Physician Notes I personally examined the patient and verified all amaro points of history and exam, discussed case, and agree with decision making with Dr German Having a good bit of hip and lateral buttock pain, as well as knee pain. Worked with therapyfelt dizzy afterwards, noted that she only really worked with him for about 5 minutes. When asking if she would take a walk with she agrees. Vitals noted, in general she is awake and alert fatigued but pleasant. HEENT normocephalic atraumatic mucous membranes are moist. Breathing unlabored no accessory muscle use good effort. Gait is slow but steady with a walker, she does lean forward and walks more deliberately than of course 1 would expect from a 20-year-old, but she does appear overall steady. Acute on chronic pain/ambulatory dysfunctioncontinue home meds for pain control, continue PT, ambulated with patient ourselves as well. Offered empathy and support. Otherwise as above Subjective Patient seen and evaluated at bedside this afternoon. Reports pain hasn't improved nor worsened compared to yesterday. Pain is primarily in her back and outer left hip. Also endorses hunger but difficulty eating due to nausea, hasn't eaten much in about five days. Endorses stress and feelings of hopelessness at her overall clinical course. Was engaged with PT today but reports they left after about five minutes. While patient and I were talking today, we took a lap around the unit, which was slow with an antalgic gait, but patient did tolerate the walk well. Endorses mild dizziness. Denies CP, SOB, vomiting, change in vision, or other new symptoms. Review of Systems Review of Systems: See HPI Physical Exam Physical Exam: Constitutional: tired-appearing, tearful, no acute distress CV: regular rhythm, no murmur appreciated, extremities well-perfused Resp: CTABL, no wheezes/rales/rhonchi appreciated, no increased work of breathing MSK: no gross deformities appreciated Skin: warm, dry, no rash appreciated Neuro: AOx4, no focal neurological deficits appreciated, antalgic gait Appearance: well-groomed, wearing hospital gown Behavior: calm, cooperative, eye contact fair Mood: "okay" Affect: pleasant, slightly withdrawn, affect congruent with mood Speech: appropriate rate/quantity/volume Thought process: linear, coherent Thought content: appropriate to topic of discussion Cognition: alert, focused, short- and long-term memory grossly intact, abstraction intact Results & Data Results & Data ([facility]) Vital Signs (Past 12 Hours) Vital Signs Temp Pulse Pulse Pulse Resp BP BP 09/05/20 07:37 36.6 C 79 18 93/60 L 09/05/20 01:10 36.7 C 67 20 123/82 09/05/20 00:48 70 16 109/72 09/04/20 22:56 75 15 114/81 Pulse Ox 09/05/20 07:37 99 09/05/20 01:10 100 09/05/20 00:48 100 09/04/20 22:56 100
[2020-09-05] MEDS ORDERED: TAPENTADOL HCL 50 MG TAB PO PRN (10:10)
[2020-09-05] MEDS: LACTATED RINGER'S 1,000 ML IV SCH ×2 (10:17→16:42)
[2020-09-05] MEDS ORDERED: ONDANSETRON 8MG OD TAB PO STA (18:11)
[2020-09-05] MEDS ORDERED: KETOROLAC TROMETHAMINE 15 MG/ML VIAL IM STA (18:22)
[2020-09-05 19:00] LABS: Appearance Urine Clear (Clear); Bilirubin Urine Negative (Negative); Blood Urine Negative (Negative); Color Urine Dark Yellow; Glucose Urine UA Negative (Negative); Ketones Urine Negative (Negative); Leukocyte Esterase Urine Negative (Negative); Nitrite Urine Negative (Negative); Protein Urine Negative (Negative); Specific Gravity Urine 1.017 (1.000-1.030); Urobilinogen Urine Negative (Negative)
--- NOTE | 2020-09-05 19:44 | Billing Data ---
Date of Service September 05, 2020 Coding Level of Care Code 12750 Subseq Hosp Care Lvl 2
[2020-09-05] MEDS: FOLIC ACID 1 MG TAB PO SCH (20:51)
[2020-09-05] MEDS: PANTOprazole 40 MG TAB PO SCH (20:51)
[2020-09-05] MEDS: DULoxetine HCL 60 MG CAP PO SCH (20:51)
[2020-09-05] MEDS: busPIRone 15 MG TAB PO SCH (20:51)
--- NOTE | 2020-09-06 02:03 | Billing Data ---
Date of Service September 06, 2020 Coding Level of Care Code 74991 Initial Inpt Care Lvl 2
[2020-09-06] MEDS: LACTATED RINGER'S 1,000 ML IV SCH ×4 (02:51→23:02)
[2020-09-06] MEDS: ENOXAPARIN INJ 30 MG/0.3 ML SYR SQ SCH (06:46)
--- NOTE | 2020-09-06 07:59 | Hospitalist Progress Note ---
Date of Service September 06, 2020 Assessment & Plan (1) Chronic pain: Plan: Donta Early (Tomi) is a 20yo female well known to this resident hospitalist service, with PMH significant for sickle cell disease and chronic pain, who presented to the ER with worsening pain and ambulatory dysfunction after running out of home medications. Ambulatory dysfunction likely secondary to zyubo-wg-[id number] pain Patient well-known to this service with a long history of narcotic hyperanalgesia/chronic pain syndrome Continue duloxetine 60 mg PO HS Continue scheduled nucynta ER 150mg bid Continue nucynta IR 50mg q8h prn for acute pain Continue nycynta IR 50mg as needed for pain 30 minutes prior to PT (maximum one 50mg IR dose daily in addition to the three q8h IR doses above) Toradol 30mg IV q6h No intravenous narcotics Nausea Possibly secondary to pain, anxiety, GERD, opioid side effect given relatively new nucynta (started 2-3 weeks ago) Zofran 4-8mg q4h prn, will consider adding other antiemetics Sickle cell anemia Continue folic acid 2mg PO qhs Continue hydroxyurea 1000mg PO bid No signs of acute vaso-occlusive crisis at this time Insomnia Continue doxepin 25mg PO qhs Continue diphenhydraine 25mg PO qhs as needed Anxiety/BPD Continue duloxetine as above Continue buspirone 15mg tid GERD Continue protonix 40mg PO qhs FEN: regular diet Code status: full code DVT ppx: not indicated, patient ambulatory, short stay anticipated Consults: none Dispo: med/surg Admission and Anticipated Discharge Date Admission Date: September 04, 2020 Subjective Patient seen and evaluated at bedside this morning. No acute events overnight. Patient feels okay today - pain is no better or worse than yesterday, but does report toradol seemed to help yesterday. Still experiencing nausea, dizziness on standing, and weakness. Not feeling very optimistic today in regards to her overall course. No new symptoms today including SOB, vomiting, confusion, dysuria, diarrhea, or other symptoms. Review of Systems Review of Systems: See HPI Physical Exam Physical Exam: Constitutional: well-appearing, no acute distress, laying in bed CV: regular rhythm, no murmur appreciated, extremities well-perfused Resp: CTABL, no wheezes/rales/rhonchi appreciated, no increased work of breathing Neuro: AOx4, no focal neurological deficits appreciated Appearance: well-groomed, wearing hospital gown Behavior: calm, cooperative, eye contact good Mood: "not bad" Affect: pleasant, affect congruent with mood Speech: appropriate rate/quantity/volume Thought process: linear, coherent Thought content: appropriate to topic of discussion Cognition: alert, focused, short- and long-term memory grossly intact, abstraction intact Results & Data Results & Data ([facility]) Vital Signs (Past 12 Hours) Vital Signs Temp Pulse Resp BP Pulse Ox 09/05/20 22:46 36.7 C 80 18 97/52 L 98
[2020-09-06] MEDS: HYDROXYUREA 500 MG CAP PO SCH ×2 (08:36→20:29)
[2020-09-06] MEDS: TAPENTADOL HCL ER 50 MG TABCR PO SCH ×2 (08:36→20:27)
[2020-09-06] MEDS: SENNA 8.6 MG TAB PO SCH (08:36)
[2020-09-06] MEDS: POLYETHYLENE (MIRALAX) 17 GM PACK PO SCH ×2 (08:36→20:23)
[2020-09-06] MEDS: DICLOFENAC SOD 1% GEL 100 GM TUBE EXT SCH ×4 (08:37→20:26)
[2020-09-06] MEDS ORDERED: KETOROLAC 30 MG/ML VIAL IV PRN (11:04)
[2020-09-06] MEDS ORDERED: LACTATED RINGER'S 1,000 ML IV SCH (11:15)
[2020-09-06] MEDS: KETOROLAC 30 MG/ML VIAL IV SCH ×3 (12:03→23:00)
[2020-09-06] MEDS: ONDANSETRON 4 MG OD TAB PO SCH ×3 (14:34→23:00)
[2020-09-06] MEDS: TAPENTADOL HCL 50 MG TAB PO PRN (14:36)
--- NOTE | 2020-09-06 19:22 | Billing Data ---
Date of Service September 06, 2020 Coding Level of Care Code 52269 Subseq Hosp Care Lvl 3
[2020-09-06] MEDS ORDERED: FAMOTIDINE 20 MG in SYRINGE 3 ML IV ONE (19:45)
[2020-09-06] MEDS: busPIRone 15 MG TAB PO SCH (20:26)
[2020-09-06] MEDS: FOLIC ACID 1 MG TAB PO SCH (20:28)
[2020-09-06] MEDS: SUCRALFATE 1 GM/10 ML UDC PO SCH (20:28)
[2020-09-06] MEDS: DULoxetine HCL 60 MG CAP PO SCH (20:28)
[2020-09-06] MEDS: PANTOprazole 40 MG TAB PO SCH ×2 (20:28→23:05)
[2020-09-06] MEDS ORDERED: FAMOTIDINE 20 MG in SYRINGE 3 ML IV SCH (21:00)
[2020-09-06] MEDS ORDERED: FAMOTIDINE 20 MG TAB PO SCH (21:00)
[2020-09-07] MEDS: ONDANSETRON 4 MG OD TAB PO SCH ×6 (03:09→22:02)
[2020-09-07] MEDS: KETOROLAC 30 MG/ML VIAL IV SCH ×4 (06:28→23:02)
[2020-09-07] MEDS: ENOXAPARIN INJ 30 MG/0.3 ML SYR SQ SCH (06:29)
[2020-09-07 06:38] LABS: Hematocrit (blood only) 27.7 % (37-47); Hemoglobin 9.7 g/dL (12.0-16.0); Mean Corpuscular Hemoglobin 37.7 pg (25-34); Mean Corpuscular Volume 107.8 fL (80-100); Mean Platelet Volume 9.6 fL (7.4-10.4); Platelet Count 353 K/uL (130-400); RDW Coefficient of Variation 20.4 % (11.5-14.5); RDW Standard Deviation 79.5 fL (36.4-46.3); Red Blood Count 2.57 M/uL (4.2-5.4); White Blood Count 4.61 K/uL (4.8-10.8)
[2020-09-07 07:06] LABS: Blood Urea Nitrogen 6 mg/dl (7-18); Carbon Dioxide 27 mmol/L (21-32); Chloride 108 mmol/L (98-107); Glucose 87 mg/dl (70-99); Potassium 3.7 mmol/L (3.5-5.1); Sodium 139 mmol/L (136-145)
[2020-09-07 07:17] LABS: Calcium 9.2 mg/dl (8.5-10.1); Creatinine Clr Calc Pharmacy 197.4 ml/min; Est GFR (African American) > 150.0 ml/min
[2020-09-07 07:20] LABS: Anisocytosis Present; Basophils # (auto) 0.01 K/uL (0-0.2); Basophils % (auto) 0.2 %; Eosinophils # (auto) 0.08 K/uL (0-0.5); Eosinophils % (auto) 1.7 %; Lymphocytes # (auto) 2.47 K/uL (1.2-3.4); Lymphocytes % (auto) 53.6 %; Monocytes # (auto) 0.26 K/uL (0.11-0.59); Monocytes % (auto) 5.6 %; Neutrophils # (auto) 1.79 K/uL (1.4-6.5); Neutrophils % (auto) 38.9 %; Poikilocytosis Present; Target Cells 1+
[2020-09-07 07:23] LABS: BUN Creatinine Ratio 13.1 (10-20); Est GFR (Non-African American) 138.3 ml/min
[2020-09-07] MEDS: POLYETHYLENE (MIRALAX) 17 GM PACK PO SCH ×2 (09:00→20:52)
[2020-09-07] MEDS: FAMOTIDINE 20 MG TAB PO SCH ×2 (09:02→20:50)
[2020-09-07] MEDS: TAPENTADOL HCL ER 50 MG TABCR PO SCH ×2 (09:02→20:52)
[2020-09-07] MEDS: DICLOFENAC SOD 1% GEL 100 GM TUBE EXT SCH ×4 (09:03→20:51)
[2020-09-07] MEDS: SENNA 8.6 MG TAB PO SCH (09:03)
[2020-09-07] MEDS: PANTOprazole 40 MG TAB PO SCH ×2 (09:03→20:51)
[2020-09-07] MEDS: HYDROXYUREA 500 MG CAP PO SCH ×2 (09:04→20:51)
[2020-09-07] MEDS: SUCRALFATE 1 GM/10 ML UDC PO SCH ×4 (09:04→20:52)
[2020-09-07] MEDS: LACTATED RINGER'S 1,000 ML IV SCH ×2 (11:01→23:02)
--- NOTE | 2020-09-07 11:11 | Hospitalist Progress Note ---
Date of Service September 07, 2020 Assessment & Plan (1) Chronic pain: Plan: Donta Early (Tomi) is a 20yo female well known to this resident hospitalist service, with PMH significant for sickle cell disease and chronic pain, who presented to the ER with worsening pain and ambulatory dysfunction after running out of home medications. Ambulatory dysfunction likely secondary to sakgb-ox-bivectk pain Patient well-known to this service with a long history of narcotic hyperanalgesia/chronic pain syndrome Continue duloxetine 60 mg PO HS Continue scheduled nucynta ER 150mg bid Continue nucynta IR 50mg q8h prn for acute pain Continue nycynta IR 50mg as needed for pain 30 minutes prior to PT (maximum one 50mg IR dose daily in addition to the three q8h IR doses above) Toradol 30mg IV q6h No intravenous narcotics Nausea Likely secondary to gastritis given dramatic improvement with PPI, H2 chata, sucralfate Continue the above Will continue PPI and H2 chata for 1 week before dropping H2 chata Changing zofran back to prn Sickle cell anemia Continue folic acid 2mg PO qhs Continue hydroxyurea 1000mg PO bid No signs of acute vaso-occlusive crisis at this time Insomnia Continue doxepin 25mg PO qhs Continue diphenhydraine 25mg PO qhs as needed Anxiety/BPD Continue duloxetine as above Continue buspirone 15mg tid GERD Continue protonix 40mg PO qhs FEN: regular diet Code status: full code DVT ppx: not indicated, patient ambulatory, short stay anticipated Consults: none Dispo: med/surg Admission and Anticipated Discharge Date Admission Date: September 04, 2020 Supervising Physician Co-Signing Physician Notes I personally examined the patient and verified all amaro points of history and exam, discussed case, and agree with decision making with Dr German Nausea doing better. Lightheaded better too. Walked 5 laps in the wright nonstop, tolerated reasonably well. Has not really eaten yet today. Vitals noted, in general she is awake and alert pleasant no distress. HEENT normocephalic atraumatic mucous membranes moist. Breathing unlabored no accessory muscle use good effort. Skin shows no rashes no pallor or icterus. Gait less slow more steady and less antalgic than prior. Nauseawhile the differential is quite broad (see yesterday's attending addendum)fortunately her response to treatment suggests a fairly strong component of gastritis/indigestion. Continue aggressive management for now, slowly wean back medications over the ensuing weeks. Sling she is able to eat reasonably well, then can hopefully consider home tomorrow. Consider outpatient OMT for potential biomechanical part of back pain as well. Otherwise as above. Subjective Patient seen and evaluated at bedside this afternoon. No acute events overnight. Patient feels well today, reports her pain has not changed much from yesterday but reports her nausea has dramatically improved. Walked around the unit with patient this afternoon - patient was able to do five laps easily, compared to one labored lap yesterday. Dizziness and weakness have resolved.Patient is in much better spirits today. Denies CP, SOB, vomiting, or other new symptoms. Review of Systems Review of Systems: See HPI Physical Exam Physical Exam: Constitutional: well-appearing, no acute distress, sitting up in bed, smiling CV: regular rhythm, no murmur appreciated, extremities well-perfused Resp: CTABL, no wheezes/rales/rhonchi appreciated, no increased work of breathing Neuro: AOx4, no focal neurological deficits appreciated Appearance: well-groomed, wearing hospital gown Behavior: calm, cooperative, eye contact good Mood: "good" Affect: pleasant, affect congruent with mood Speech: appropriate rate/quantity/volume Thought process: linear, coherent Thought content: appropriate to topic of discussion Cognition: alert, focused, short- and long-term memory grossly intact, abstraction intact Results & Data Results & Data ([facility]) Vital Signs (Past 12 Hours) Vital Signs Temp Pulse Resp BP Pulse Ox 09/07/20 08:59 36.7 C 70 18 119/76 99 Resident Activity Tracking Resident Involvement: Resident Care Provided Care Provided: Adult Hospital Medicine
[2020-09-07] MEDS: TAPENTADOL HCL 50 MG TAB PO PRN ×2 (13:06→22:02)
--- NOTE | 2020-09-07 18:56 | Billing Data ---
Date of Service September 07, 2020 Coding Level of Care Code 33934 Subseq Hosp Care Lvl 2
[2020-09-07] MEDS: busPIRone 15 MG TAB PO SCH (20:50)
[2020-09-07] MEDS: FOLIC ACID 1 MG TAB PO SCH (20:50)
[2020-09-07] MEDS: DULoxetine HCL 60 MG CAP PO SCH (20:50)
[2020-09-08] MEDS: ONDANSETRON 4 MG OD TAB PO SCH ×5 (01:55→16:51)
[2020-09-08] MEDS: ENOXAPARIN INJ 30 MG/0.3 ML SYR SQ SCH (05:54)
[2020-09-08] MEDS: KETOROLAC 30 MG/ML VIAL IV SCH ×3 (05:55→16:51)
[2020-09-08] MEDS: TAPENTADOL HCL 50 MG TAB PO PRN ×2 (05:55→19:45)
[2020-09-08 07:08] LABS: BUN Creatinine Ratio 17.1 (10-20); Blood Urea Nitrogen 9 mg/dl (7-18); Calcium 8.6 mg/dl (8.5-10.1); Carbon Dioxide 30 mmol/L (21-32); Chloride 105 mmol/L (98-107); Creatinine Clr Calc Pharmacy 165.1 ml/min; Est GFR (African American) > 150.0 ml/min; Est GFR (Non-African American) 133.1 ml/min; Glucose 80 mg/dl (70-99); Potassium 3.5 mmol/L (3.5-5.1); Sodium 138 mmol/L (136-145)
[2020-09-08] MEDS: DICLOFENAC SOD 1% GEL 100 GM TUBE EXT SCH ×3 (08:30→16:20)
[2020-09-08] MEDS: TAPENTADOL HCL ER 50 MG TABCR PO SCH (08:30)
[2020-09-08] MEDS: SENNA 8.6 MG TAB PO SCH (08:31)
[2020-09-08] MEDS: FAMOTIDINE 20 MG TAB PO SCH (08:31)
[2020-09-08] MEDS: SUCRALFATE 1 GM/10 ML UDC PO SCH ×3 (08:31→16:51)
[2020-09-08] MEDS: POLYETHYLENE (MIRALAX) 17 GM PACK PO SCH (08:31)
[2020-09-08] MEDS: PANTOprazole 40 MG TAB PO SCH (08:32)
[2020-09-08] MEDS: HYDROXYUREA 500 MG CAP PO SCH (08:32)
--- NOTE | 2020-09-08 09:19 | Discharge Summary ---
Date of Service September 08, 2020 Admission HPI Per Admitting Provider James Sharath 20-year-old female well known to [facility] service with past medical history significant for sickle cell disease and chronic pain; who presented to the ER following running out of home medications, and discussions with PCP regarding leg pain. Was seen earlier today in [facility] for continued evaluation of this pain. Of note was recently discharged from hospital following extended stay for sickle cell crisis and chronic uncontrolled pain. Was transitioned to Nucynta ER 150 mg twice a day and Nucynta IR 50 mg 3 times a day. Endorses that over the last week since her discharge has been utilizing the IR formulation of Nucynta more frequently as result is out of this immediate release relief of her pain. Continues to endorse increased pain all over with feeling of severe weakness as a result of the pain. Admission Exam Per Admitting Provider Constitutional: WD/WN, vitals as above Eyes: PERRL, conjunctivae normal, anicteric sclerae Respiratory: normal respiratory effort, lungs clear to auscultation, no crackles, no rales, no rhonchi and no wheezes Cardiovascular: regular rate and regular rhythm Heart Sounds: no gallop, no murmur and no cardiac rub Vessels: normal peripheral pulses; no JVD Extremities: no edema Gastrointestinal: normal bowel sounds; abdomen not distended, abdomen soft; abdomen nontender and no guarding Musculoskeletal: no cyanosis or clubbing, extremities motor strength 5/5 Skin: no rashes, warm and dry Neurologic: PERRL, EOMI, accommodation nl, no face palsy, no dysarthria CN's II-XI intact bilaterally and moves all extremities Psychiatric: alert and oriented x 3 Principal Diagnosis Gastritis, ambulatory dysfunction secondary to lightheadedness, weakness, chronic pain Discharge Exam Constitutional: well-appearing, no acute distress CV: regular rhythm, no murmur appreciated, extremities well-perfused Resp: CTABL, no wheezes/rales/rhonchi appreciated, no increased work of breathing Skin: warm, dry, no rash appreciated Neuro: AOx4, no focal neurological deficits appreciated Psych: cooperative, pleasant, appropriate rate/volume/quantity of speech Appearance: well-groomed, appropriately dressed Behavior: calm, cooperative, eye contact fair Mood: "not bad" Affect: pleasant, affect congruent with mood Speech: appropriate rate/quantity/volume Thought process: linear, coherent Thought content: appropriate to topic of discussion, denies SI/HI Cognition: alert, focused, short- and long-term memory grossly intact, abstraction intact Discharge Data Allergies Allergy/AdvReac Type Severity Reaction Status Date / Time No Known Allergies Allergy Verified 09/04/20 21:15 Consultations 09/04/20 20:57 ED Decision to Admit Stat Hospital Course (1) Chronic pain: Ambulatory dysfunction, chronic pain Patient's ambulatory dysfunction was suspected to be primarily due to underlying chronic pain from sickle cell anemia as well as opioid hyperalgesia, and exacerbated by lightheadedness, dizziness, weakness, and nausea (below). Patient engaged with physical therapy each day, though to a limited degree on hospital days two and three secondary to these symptoms. On hospital day four, upon resolution of patient's lightheadedness, dizziness, weakness, and nausea (see below), patient demonstrated a dramatic improvement in ambulatory function and exercise capacity, ambulating around the unit many times. Patient reported her chronic pain had not improved much compared to prior hospital days, though this was tolerable and did not greatly interfere with her ability to ambulate. Patient was discharged on hospital day five in stable condition. From admission to discharge, no changes were made to patient's chronic pain regimen, which was Nucynta ER 150mg twice daily and Nucynta IR 50mg three times daily. Intravenous opiates were not necessary nor used during this hospitalization. Upon discharge, patient was provided with a one-week supply of Nucynta IR (patient did not require a refill of her Nucynta ER). Prior to patient discharge on 09/08, PCP follow-up appointment was scheduled for 09/12. Gastritis Patient's lightheadedness, dizziness, and weakness were suspected to be secondary to patient's reported minimal PO intake over the 5-7 days prior to admission, which was secondary to nausea. Patient's nausea was initially managed with zofran IV without improvement. On hospital day three, due to concern for gastritis, patient was treated with pantoprazole, famotidine, and sucralfate; by hospital day four, patient reported complete resolution of nausea and was able to tolerate PO intake. Upon discharge, patient was prescribed pantoprazole 40mg twice daily, famotidine 20mg twice daily, and sucralfate 1g four times daily, with plan for this gastritis regimen to be de-escalated by PCP. Anxiety, insomnia Patient's home regimen was continued during this hospitalization. Total Time Total Time Spent Total Time Spent (In Minutes): <30 Discharge Plan Discharge Items Patient Disposition: Home - Self-Care Reason For Visit: SICKLE CELL Discharge Diagnosis: Ambulatory dysfunction secondary to chronic pain, nausea due to gastritis Activity: Resume your previous activity Non-emergency contact: Primary Care Provider Call non-emergency contact if: you have any medication questions, your symptoms worsen and your pain is not controlled Follow-up/Referrals: Zamzam Bailey MD [Primary Care Provider] - Diet: Regular Addtl Attending Provider Instructions: You were admitted to the hospital for difficulty walking in the setting of dizziness, weakness, nausea, and chronic pain. You were treated with anti-nausea medicine, IV fluids, and physical therapy. We feel it is safe for you to leave the hospital and to continue improving your strength from home. A discharge summary will be sent to your primary care physician to ensure continuity of care. Please bring this discharge summary with you to your next office appointment so that your provider can review it at that time. Follow-up appointments: You have an appointment with Dr. German on September 12 at 9:50am. This appointment is at the [facility] at [address] [place] [address] in [place] (the same location you see Dr. Bailey). If you are unable to make this appointment, or have any other questions, their office can be reached at . You also have a follow-up appointment with Dr. Bailey on September 29 at 9:50am. This appointment can be pushed back if needed; you can discuss this at your appointment with Dr. German on 09/12. Keep all your follow-up appointments as already scheduled. If you cannot make an appointment, notify your provider. Medications: Your medication list has been reviewed and reconciled upon discharge to ensure accuracy and continuity of care. An updated list of all your medications is included with your hospital discharge paperwork. Please review this list closely, and make note of any changes. * We sent a new medication called famotidine to your pharmacy. Take famotidine (20mg) one tablet twice daily for seven more days (09/08-10/16). * We sent a new medication called pantoprazole to your pharmacy. Take pantoprazole (40mg) one tablet twice daily for two weeks (09/08-09/22). Starting 09/23, take pantoprazole (40mg) one tablet once daily. * We sent a new medication called sucralfate to your pharmacy. Take sucralfate (1g) one tablet four times daily. At your follow-up appointment on 09/12, Dr. German will help you decide how long to continue this medicine. If insurance does not cover this, you can use a [employer] coupon - a one-month suppl y would cost about $20. * We sent a refill for Nucynta IR to your pharmacy. Continue to take Nucynta IR 50mg three times daily, as well as Nucynta ER 150mg twice daily. Take your medications as instructed; do not skip a dose of your medicines. Make sure all of your doctors know every medicine you are taking (including kaea-bmf-yekwumi medicines, vitamins, and supplements). Call your primary care provider before taking any new medicines (including vmed-yet-kkpztwa medicines, vitamins, and supplements), because some of these may interact with your current medications, or may make your symptoms worse. Tell your primary care provider if you cannot afford your medications. CONTACT YOUR PRIMARY CARE PROVIDER if you experience any of the following: Worsening lightheadedness, dizziness, weakness Nausea, vomiting Difficulty following your treatment plan, or difficulty taking medications CALL 911 OR GO TO THE EMERGENCY DEPARTMENT if you experience any of the following: Sudden, severe abdominal pain or nausea/vomiting Severe chest pain, or chest pain that radiates (moves) to your jaw or arm Sudden, severe shortness of breath or difficulty breathing Thank you for allowing us to participate in your care. Pending Studies at Discharge: No Stand-Alone Forms: [facility] Medications and DC Order Prescriptions: New famotidine 20 mg Tablet 20 mg PO BID Qty: 60 RF: 0 ondansetron 4 mg Tablet,Disintegrating 4 mg PO Q4H Qty: 60 RF: 0 pantoprazole 40 mg Tablet,Delayed Release (Dr/Ec) 40 mg PO BID Qty: 60 RF: 0 sucralfate 1 gram tablet 1 g PO QID 30 Days Qty: 120 RF: 1 Continued folic acid 1 mg Tablet 2 mg PO HS RF: 0 pantoprazole 40 mg tablet,delayed release (DR/EC) 40 mg PO HS RF: 0 buspirone 15 mg tablet 45 mg PO HS RF: 0 duloxetine 60 mg capsule,delayed release(DR/EC) 60 mg PO HS RF: 0 hydroxyurea 500 mg Capsule 1,000 mg PO BID 30 Days Qty: 120 RF: 1 doxepin 25 mg Capsule 25 mg PO HS PRN (Reason: sleep) Qty: 10 RF: 0 polyethylene glycol 3350 [Miralax] 17 gram Powder In Packet 17 g PO BID Qty: 100 RF: 0 sennosides [Senokot] 8.6 mg Tablet 17.2 mg PO QAM Qty: 60 RF: 0 diclofenac sodium 1 % Gel 4 g TOPICAL QID RF: 0 Nucynta ER 150 mg tablet extended release 12 hr 150 mg PO BID Qty: 14 RF: 0 Narcan 4 mg/actuation spray,non-aerosol 1 spray intranasal .Q3 MINUTES PRN (Reason: OVERSEDATION) RF: 0 Nucynta 50 mg tablet 50 mg PO Q8H MDD 3 tabs (150mg) PRN (Reason: pain) Qty: 21 RF: 0 Discharge Orders: Discharge Order (Routine); Ordered 09/08/20 Ordered By: Jhoan Aragon/Other Patient Handouts: 5 Steps for Eating Healthier Admission Data Admit Date/Time: 09/04/20 22:12 Attending Provider: Cesar Kerr Admit Provider: Jono Thompson Primary Care Provider: Zamzam Bailey Other Providers: Chandler Mena Other Interventions: Discharge Summary Assessment (RN) Last Done: 09/08/20 18:32 Supervising Physician Co-Signing Physician Notes I personally examined the patient and verified all amaro points of history and exam, discussed case, and agree with decision making with Dr German feels up to going home Vitals noted, in general no distress. HEENT normocephalic atraumatic mucous membranes moist. Breathing unlabored no accessory muscle use good effort. Skin shows no rashes no pallor or icterus. Nauseawhile the differential is quite broad (see 09/06 attending addendum)fortunately her response to treatment suggests a fairly strong compo nent of gastritis/indigestion. Continue aggressive management for now, slowly wean back medications over the ensuing weeks. stable for home Consider outpatient OMT for potential biomechanical part of back pain as well. Otherwise as above. Resident Activity Tracking Resident Involvement: Resident Care Provided Care Provided: Adult Hospital Medicine
[2020-09-08] MEDS: LACTATED RINGER'S 1,000 ML IV SCH (10:20)
--- NOTE | 2020-09-08 18:16 | Billing Data ---
Date of Service September 08, 2020 Coding Level of Care Code D/C DAY MANAGEMENT <30 MINS
== END 2020-09-08 21:28 | disposition home or self-care (01) | DRG 93 ==
LOC: ED 17:06 → 3E 22:12 → SUATTDRO 22:12 → 3E 09-05 00:48

== ENCOUNTER 2020-09-15 23:27 | Inpatient (IN) ==
[2020-09-15] MEDS ORDERED: SODIUM CHLORIDE 0.9% 500 ML IV SCH (23:45)
[2020-09-16 00:15] LABS: Hematocrit (blood only) 29.8 % (37-47); Hemoglobin 10.4 g/dL (12.0-16.0); Mean Corpuscular Hemoglobin 37.3 pg (25-34); Mean Corpuscular Hgb Conc 34.9 g/dL (32-36); Mean Corpuscular Volume 106.8 fL (80-100); Nucleated RBC # (auto) 0.08 K/uL (0-0); Nucleated RBC % (auto) 1.3 %; Platelet Count 319 K/uL (130-400); RDW Coefficient of Variation 20.7 % (11.5-14.5); Red Blood Count 2.79 M/uL (4.2-5.4); White Blood Count 6.31 K/uL (4.8-10.8)
[2020-09-16 00:25] LABS: Prothrombin Time 10.5 Seconds (9.0-12.0)
[2020-09-16 00:34] LABS: Alanine Aminotransferase 25 U/L (12-78); Albumin Level 4.1 gm/dl (3.4-5.0); Aspartate Aminotransferase 20 U/L (15-37); BUN Creatinine Ratio 9.5 (10-20); Blood Urea Nitrogen 5 mg/dl (7-18); Calcium 9.2 mg/dl (8.5-10.1); Carbon Dioxide 25 mmol/L (21-32); Chloride 111 mmol/L (98-107); Creatinine Clr Calc Pharmacy 164.2 ml/min; Est GFR (African American) > 150.0 ml/min; Est GFR (Non-African American) 132.4 ml/min; Glucose 96 mg/dl (70-99); Lipase 187 U/L (73-393); Magnesium 2.1 mg/dl (1.8-2.4); Potassium 3.5 mmol/L (3.5-5.1); Sodium 139 mmol/L (136-145)
[2020-09-16 00:39] LABS: Base Excess ABG -1.5 mEq/L (-9-1.8); HCO3 ABG 23 mmol/L (19-24); Oxygen Saturation ABG 95.3 % (90-95); PCO2 ABG 40 mmHg (35-46); PO2 ABG 78 mmHg (80-95); pH ABG 7.39 (7.35-7.45)
[2020-09-16 00:39] LABS: Alkaline Phosphatase 74 U/L (45-117); Bilirubin,Total 1.2 mg/dl (0.2-1); Globulin 4.3 gm/dl (2.5-4.0); Total Protein 8.4 gm/dl (6.4-8.2); Troponin I < 0.015 ng/ml (0-0.045)
[2020-09-16 00:40] LABS: Allen Test Pos (Pos)
[2020-09-16 00:45] LABS: Anisocytosis Present; Basophils # (auto) 0.01 K/uL (0-0.2); Basophils % (auto) 0.2 %; Eosinophils # (auto) 0.08 K/uL (0-0.5); Eosinophils % (auto) 1.3 %; Immature Granulocytes # (auto) 0.01 K/uL (0.00-0.02); Immature Granulocytes % (auto) 0.2 %; Lymphocytes % (auto) 55.5 %; Monocytes # (auto) 0.39 K/uL (0.11-0.59); Monocytes % (auto) 6.2 %; Neutrophils # (auto) 2.32 K/uL (1.4-6.5); Neutrophils % (auto) 36.6 %; Polychromasia 1+; Pregnancy Test, Serum Negative (Negative); Sickle Cells Occasional; Target Cells 1+
[2020-09-16 00:47] LABS: Acetaminophen < 2 ug/ml (10-30); Salicylate < 1.7 mg/dl (2.8-20)
--- NOTE | 2020-09-16 02:00 | Emergency Department Note ---
History of Present Illness General Chief complaint: Overdose (Intentional) Stated complaint: INTENTIONAL OVERDOSE Time Seen by Provider: 09/15/20 23:44 Source: patient and EMS Mode of arrival: EMS Limitations: patient cooperation History of Present Illness Provider complaint: Intentional overdose Maximum Pain Intensity: 7 This is a 20-year-old female presents emergency department via EMS after an intentional overdose. Per EMS patient texted a family member who called and spoke with their mom and then called 911 when patient disclosed that she had intentionally taken extra of her routine medications. On EMS arrival they did note seizure-like activity and patient was given Ativan prehospital. On arrival here patient crying, agitated, and not completely cooperative in answering ques tions. Patient admits to depression, anxiety, suicidal ideation, and that she intentionally overdosed on her pills with the intent of killing herself. She states "do not help me, just let me ". Patient states she is nauseated, and does have pain although patient states she deals with chronic pain related to her sickle cell disease. When asked what medication she took on multiple occasions she stated she took extra hydroxyurea. She states she took a few extra of multiple other medications but would not tell me which ones or how many. Patient states she took medications several hours prior and estimates it was shortly after dinnertime or perhaps closer to 7 PM. Patient states she has previously tried to hurt herself. Patient denies any recent change in her medications. Patient states she did feel herself having seizures and states she has seizures secondary to stress/PTSD. She states she used to take seizure medication but does not any longer as she was told it does not from epilepsy. Patient denies any recent illness or fevers. She denies any drug or alcohol use tonight. Patient denies any chance of . Pt seen during a time of high acuity and national emergency pandemic while wearing PPE. Home Medications Medication Instructions Recorded Confirmed Type folic acid 1 mg tablet 2 mg PO HS 11/18/19 09/16/20 History pantoprazole 40 mg tablet,delayed 40 mg PO HS 01/22/20 09/16/20 History release duloxetine 60 mg capsule,delayed 20 mg PO HS 04/17/20 09/17/20 History release hydroxyurea 500 mg capsule 1,000 mg PO BID 30 Days #120 cap 05/01/20 09/16/20 Rx polyethylene glycol 3350 17 gram 17 g PO BID #100 ea 07/06/20 09/16/20 Rx oral powder packet (Miralax) sennosides 8.6 mg tablet (Senokot) 17.2 mg PO QAM #60 tab 07/06/20 09/16/20 Rx diclofenac sodium 1 % topical gel 4 g TOPICAL QID 07/26/20 09/16/20 History tapentadol 150 mg tablet,extended 150 mg PO BID #14 tab 08/29/20 09/16/20 Rx release,12 hr (Nucynta ER) naloxone 4 mg/actuation nasal 1 spray INTRANASAL .Q3 MINUTES PRN 09/04/20 09/16/20 History spray (Narcan) famotidine 20 mg tablet 20 mg PO BID #60 tab 09/08/20 09/16/20 Rx ondansetron 4 mg disintegrating 4 mg PO Q4H #60 tab 09/08/20 09/16/20 Rx tablet pantoprazole 40 mg tablet,delayed 40 mg PO BID #60 tab 09/08/20 09/16/20 Rx release sucralfate 1 gram tablet 1 g PO QID 30 Days #120 tab 09/08/20 09/16/20 Rx bupropion HCl 100 mg tablet,12 hr 100 mg PO DAILY 09/17/20 09/17/20 History sustained-release olanzapine 5 mg tablet 5 mg PO DAILY 09/17/20 09/17/20 History tapentadol 50 mg tablet (Nucynta) 50 mg PO TID 09/17/20 09/17/20 History Allergies Allergy/AdvReac Type Severity Reaction Status Date / Time No Known Allergies Allergy Verified 09/04/20 21:15 Past Med/Surg History Medical History Borderline personality disorder Chronic pain Depression Murmur, cardiac Nausea Pneumonia Pseudoseizures Seizure-like activity Sickle cell anemia Sickle cell crisis Suicide gesture Surgical History No pertinent past surgical history Family History Mother Hypertension Father Ulcer Other Family history non-contributory Social History Smoking Status: Never smoker Tobacco Type: E-cigarettes / Vaping Second Hand Exposure: Yes; Hx Alcohol Use: Yes Alcohol type: hard liquor Hx Substance Use: No Preferred Language: Wolof Communication Ability: Effective Delivery Director Required: No Beliefs That Will Affect Care: None marital status: Single Current Living Situation: Other Current Living Situation Comment: apartment with roommates 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 current occupation: [employer] major Feels Safe at Home: Yes Assistive Devices: None Review of Systems A total of 10 systems reviewed and were otherwise negative All systems reviewed & are unremarkable except as noted in HPI & below Physical Exam Vital Signs Vital Signs - 24 hr 09/16/20 09:30 Pulse Rate [Left Finger] 99 H Pulse Rhythm [Left Finger] Regular Pulse Strength [Left Finger] Normal Respiratory Rate 20 Respiratory Effort / Characteristics Non-Labored Spontaneous Respiratory Depth Normal Respiratory Pattern Regular Blood Pressure [Left Arm] 100/72 Blood Pressure Mean [Left Arm] 81 Blood Pressure Position [Left Arm] Lying Pulse Oximetry 98 Oxygen Delivery Method Room Air GENERAL: alert, anxious and agitated appearing, well nourished, moderate distress, non-toxic, crying EYE EXAM: normal conjunctiva, PERRL and EOM's grossly intact OROPHARYNX: no exudate, no erythema, lips, buccal mucosa, and tongue normal and mucous membranes are moist NECK: supple, no nuchal rigidity, no adenopathy, non-tender LUNGS: Clear to auscultation. Normal chest wall mechanics, no w/r/r HEART: no murmurs, S1 normal and S2 normal, sinus tachycardia on telemetry in the 140s ABDOMEN: abdomen soft, non-tender, normo-active bowel sounds, no masses, no rebound or guarding. BACK: Back is symmetrical on inspection and there is no deformity, no midline tenderness, no CVA tenderness. SKIN: no rashes and no bruising UPPER EXTREMITIES: upper extremities are grossly normal. FROM, nml pulses b/l. LOWER EXTREMITIES: No pitting edema. FROM, nml pulses b/l. NEURO EXAM: Normal sensorium, cranial nerves II-XII grossly intact, normal speech, no gross weakness of arms, no gross weakness of legs. Gross sensation intact. Course Course 0151: Extensive conversation with mom at bedside. 0250: Discussed with poison control. 0435: Patient evaluated by mattress spring encaser. He is also spoken with mom. We will discussed disposition with the 2 of them. Administered Medications Diclofenac Sodium (Diclofenac Sod 1% Gel 100 Gm Tube) 4 gm EXT QID WALTER Stop: 10/16/20 12:59 Last Admin: 09/16/20 21:21 Dose: 4 gm Documented by: [id number] Admin: 09/16/20 17:10 Dose: Not Given Documented by: [id number] Admin: 09/16/20 13:33 Dose: Not Given Documented by: [id number] Duloxetine HCl (Duloxetine Hcl 60 Mg Cap) 60 mg PO HS WALTER Stop: 10/16/20 20:59 Last Admin: 09/16/20 21:20 Dose: 60 mg Documented by: [id number] Famotidine (Famotidine 20 Mg Tab) 20 mg PO BID WALTER Stop: 10/16/20 20:59 Last Admin: 09/16/20 21:20 Dose: 20 mg Documented by: [id number] Folic Acid (Folic Acid 1 Mg Tab) 2 mg PO HS WALTER Stop: 10/16/20 20:59 Last Admin: 09/16/20 21:19 Dose: 2 mg Documented by: [id number] Hydroxyurea (Hydroxyurea 500 Mg Cap) 1,000 mg PO BID WALTER Stop: 10/16/20 20:59 Last Admin: 09/16/20 21:16 Dose: 1,000 mg Documented by: [id number] Cosigned by: [id number] Pantoprazole Sodium (Pantoprazole 40 Mg Tab) 40 mg PO BID WALTER Stop: 10/16/20 20:59 Last Admin: 09/16/20 21:20 Dose: 40 mg Documented by: [id number] Polyethylene Glycol (Polyethylene (Miralax) 17 Gm Pack) 17 gm PO BIDM WALTER Stop: 10/16/20 16:59 Last Admin: 09/16/20 16:55 Dose: 17 gm Documented by: [id number] Sucralfate (Sucralfate 1 Gm Tab) 1 gm PO QID WALTER Stop: 10/16/20 12:59 Last Admin: 09/16/20 21:17 Dose: 1 gm Documented by: [id number] Admin: 09/16/20 16:56 Dose: 1 gm Documented by: [id number] Admin: 09/16/20 13:33 Dose: Not Given Documented by: [id number] Tapentadol (Tapentadol Hcl Er 50 Mg Tabcr) 150 mg PO BID WALTER Stop: 09/30/20 20:59 Last Admin: 09/16/20 21:15 Dose: 150 mg Documented by: [id number] Discontinued Medications Sodium Chloride (Nss) 500 mls @ 999 mls/hr IV .Q31M WALTER Stop: 09/16/20 00:15 Last Infusion: 09/16/20 01:39 Dose: 0 mls/hr Documented by: [id number] Admin: 09/16/20 00:20 Dose: 999 mls/hr Documented by: [id number] Critical Care Time Critical Care Time: Yes Total Critical Care Time: 43 Critical care of 43 min performed to assess and manage high likelihood of life- threatening overdose, involving labs and imaging performed with assessment to evaluate overdose diagnosis with frequent reassessment. This time includes bedside time, treatment discussions with patient/family/consultants, documentation time and excludes procedure time. Medical Decision Making Differential Diagnosis Overdose, toxicologic, infection, hypoglycemia, electrolyte abnormalities, cardiac sources, intracerebral event, neurologic, trauma, as well as other pathologies. Medical Records Attestation: I reviewed the patient's medical records. Home Medications Current Medication List: was personally reviewed by me Laboratory Data Attestation: I reviewed the patient's lab results. Result diagrams: 09/16/20 00:07 09/16/20 00:07 Lab Results 09/16/20 09/16/20 09/16/20 Range/Units 00:07 00:07 00:07 WBC 6.31 (4.8-10.8) K/uL RBC 2.79 L (4.2-5.4) M/uL Hgb 10.4 L (12.0-16.0) g/dL Hct 29.8 L (37-47) % MCV 106.8 H (80-100) fL MCH 37.3 H (25-34) pg MCHC 34.9 (32-36) g/dL RDW Std Deviation 80.0 H (36.4-46.3) fL RDW Coeff of Nando 20.7 H (11.5-14.5) % Plt Count 319 (130-400) K/uL MPV 9.0 (7.4-10.4) fL Immature Gran % (Auto) 0.2 % Neut % (Auto) 36.6 % Lymph % (Auto) 55.5 % [place] % (Auto) 6.2 % Eos % (Auto) 1.3 % Baso % (Auto) 0.2 % Neut # (Auto) 2.32 (1.4-6.5) K/uL Lymph # (Auto) 3.50 H (1.2-3.4) K/uL [place] # (Auto) 0.39 (0.11-0.59) K/uL Eos # (Auto) 0.08 (0-0.5) K/uL Baso # (Auto) 0.01 (0-0.2) K/uL Immature Gran # (Auto) 0.01 (0.00-0.02) K/uL Absolute Nucleated RBC 0.08 H (0-0) K/uL Nucleated RBC % (auto) 1.3 % Polychromasia 1+ Anisocytosis Present Sickle Cells Occasional Target Cells 1+ PT 10.5 (9.0-12.0) Seconds INR 1.0 (0.9-1.1) ABG pH (7.35-7.45) ABG pCO2 (35-46) mmHg ABG pO2 (80-95) mmHg ABG HCO3 (19-24) mmol/L ABG O2 Saturation (90-95) % ABG Base Excess (-9-1.8) mEq/L Daniel Test (Pos) Oxygen Given Sodium 139 (136-145) mmol/L Potassium 3.5 (3.5-5.1) mmol/L Chloride 111 H (98-107) mmol/L Carbon Dioxide 25 (21-32) mmol/L Anion Gap 3.0 (3-11) BUN 5 L (7-18) mg/dl Creatinine 0.56 L (0.6-1.2) mg/dl Est Cr Clr Drug Dosing 164.2 ml/min Est GFR ( Amer) > 150.0 ml/min Est GFR (Non-Af Amer) 132.4 ml/min BUN/Creatinine Ratio 9.5 L (10-20) Glucose 96 (70-99) mg/dl Calcium 9.2 (8.5-10.1) mg/dl Magnesium 2.1 (1.8-2.4) mg/dl Total Bilirubin 1.2 H (0.2-1) mg/dl AST 20 (15-37) U/L ALT 25 (12-78) U/L Alkaline Phosphatase 74 (45-117) U/L Troponin I < 0.015 (0-0.045) ng/ml Total Protein 8.4 H (6.4-8.2) gm/dl Albumin 4.1 (3.4-5.0) gm/dl Globulin 4.3 H (2.5-4.0) gm/dl Albumin/Globulin Ratio 1.0 (0.9-2) Lipase 187 (73-393) U/L HCG, Qual (Negative) Urine Color Urine Appearance (Clear) Urine pH (4.5-7.5) Ur Specific [place] (1.000-1.030) Urine Protein (Negative) Urine Glucose (UA) (Negative) Urine Ketones (Negative) Urine Blood (Negative) Urine Nitrite (Negative) Urine Bilirubin (Negative) Urine Urobilinogen (Negative) Ur Leukocyte Esterase (Negative) Urine WBC (Auto) (0-5) /hpf Urine RBC (Auto) (0-4) /hpf U Hyaline Cast (Auto) (0-5) /lpf U Epithel Cells (Auto) (0-5) /lpf Urine Bacteria (Auto) (Negative) Salicylates (2.8-20) mg/dl Urine Opiates Screen (Neg) Ur Methadone, Qual (Neg) Acetaminophen (10-30) ug/ml Urine Barbiturates (Neg) Ur Phencyclidine (PCP) (Neg) U Amphetamin/Meth Scrn (Neg) MDMA (Ecstasy) Screen (Neg) U Benzodiazepines Scrn (Neg) Ur Cocaine Metabolite (Neg) U Marijuana (THC) Screen (Neg) Ethyl Alcohol mg/dL (0-3) mg/dl COVID-19 Eval Order SARS-CoV-2, RNA, NAAT (NEGATIVE) 09/16/20 09/16/20 09/16/20 Range/Units 00:07 00:07 00:20 WBC (4.8-10.8) K/uL RBC (4.2-5.4) M/uL Hgb (12.0-16.0) g/dL Hct (37-47) % MCV (80-100) fL MCH (25-34) pg MCHC (32-36) g/dL RDW Std Deviation (36.4-46.3) fL RDW Coeff of Nando (11.5-14.5) % Plt Count (130-400) K/uL MPV (7.4-10.4) fL Immature Gran % (Auto) % Neut % (Auto) % Lymph % (Auto) % [place] % (Auto) % Eos % (Auto) % Baso % (Auto) % Neut # (Auto) (1.4-6.5) K/uL Lymph # (Auto) (1.2-3.4) K/uL [place] # (Auto) (0.11-0.59) K/uL Eos # (Auto) (0-0.5) K/uL Baso # (Auto) (0-0.2) K/uL Immature Gran # (Auto) (0.00-0.02) K/uL Absolute Nucleated RBC (0-0) K/uL Nucleated RBC % (auto) % Polychromasia Anisocytosis Sickle Cells Target Cells PT (9.0-12.0) Seconds INR (0.9-1.1) ABG pH (7.35-7.45) ABG pCO2 (35-46) mmHg ABG pO2 (80-95) mmHg ABG HCO3 (19-24) mmol/L ABG O2 Saturation (90-95) % ABG Base Excess (-9-1.8) mEq/L Daniel Test (Pos) Oxygen Given Sodium (136-145) mmol/L Potassium (3.5-5.1) mmol/L Chloride (98-107) mmol/L Carbon Dioxide (21-32) mmol/L Anion Gap (3-11) BUN (7-18) mg/dl Creatinine (0.6-1.2) mg/dl Est Cr Clr Drug Dosing ml/min Est GFR ( Amer) ml/min Est GFR (Non-Af Amer) ml/min BUN/Creatinine Ratio (10-20) Glucose (70-99) mg/dl Calcium (8.5-10.1) mg/dl Magnesium (1.8-2.4) mg/dl Total Bilirubin (0.2-1) mg/dl AST (15-37) U/L ALT (12-78) U/L Alkaline Phosphatase (45-117) U/L Troponin I (0-0.045) ng/ml Total Protein (6.4-8.2) gm/dl Albumin (3.4-5.0) gm/dl Globulin (2.5-4.0) gm/dl Albumin/Globulin Ratio (0.9-2) Lipase (73-393) U/L HCG, Qual Negative (Negative) Urine Color Urine Appearance (Clear) Urine pH (4.5-7.5) Ur Specific [place] (1.000-1.030) Urine Protein (Negative) Urine Glucose (UA) (Negative) Urine Ketones (Negative) Urine Blood (Negative) Urine Nitrite (Negative) Urine Bilirubin (Negative) Urine Urobilinogen (Negative) Ur Leukocyte Esterase (Negative) Urine WBC (Auto) (0-5) /hpf Urine RBC (Auto) (0-4) /hpf U Hyaline Cast (Auto) (0-5) /lpf U Epithel Cells (Auto) (0-5) /lpf Urine Bacteria (Auto) (Negative) Salicylates < 1.7 L (2.8-20) mg/dl Urine Opiates Screen (Neg) Ur Methadone, Qual (Neg) Acetaminophen < 2 L (10-30) ug/ml Urine Barbiturates (Neg) Ur Phencyclidine (PCP) (Neg) U Amphetamin/Meth Scrn (Neg) MDMA (Ecstasy) Screen (Neg) U Benzodiazepines Scrn (Neg) Ur Cocaine Metabolite (Neg) U Marijuana (THC) Screen (Neg) Ethyl Alcohol mg/dL < 3.0 (0-3) mg/dl COVID-19 Eval Order SARS-CoV-2, RNA, NAAT (NEGATIVE) 09/16/20 09/16/20 09/16/20 Range/Units 00:20 05:35 05:35 WBC (4.8-10.8) K/uL RBC (4.2-5.4) M/uL Hgb (12.0-16.0) g/dL Hct (37-47) % MCV (80-100) fL MCH (25-34) pg MCHC (32-36) g/dL RDW Std Deviation (36.4-46.3) fL RDW Coeff of Nando (11.5-14.5) % Plt Count (130-400) K/uL MPV (7.4-10.4) fL Immature Gran % (Auto) % Neut % (Auto) % Lymph % (Auto) % [place] % (Auto) % Eos % (Auto) % Baso % (Auto) % Neut # (Auto) (1.4-6.5) K/uL Lymph # (Auto) (1.2-3.4) K/uL [place] # (Auto) (0.11-0.59) K/uL Eos # (Auto) (0-0.5) K/uL Baso # (Auto) (0-0.2) K/uL Immature Gran # (Auto) (0.00-0.02) K/uL Absolute Nucleated RBC (0-0) K/uL Nucleated RBC % (auto) % Polychromasia Anisocytosis Sickle Cells Target Cells PT (9.0-12.0) Seconds INR (0.9-1.1) ABG pH 7.39 (7.35-7.45) ABG pCO2 40 (35-46) mmHg ABG pO2 78 L (80-95) mmHg ABG HCO3 23 (19-24) mmol/L ABG O2 Saturation 95.3 H (90-95) % ABG Base Excess -1.5 (-9-1.8) mEq/L Daniel Test Pos (Pos) Oxygen Given RA Sodium (136-145) mmol/L Potassium (3.5-5.1) mmol/L Chloride (98-107) mmol/L Carbon Dioxide (21-32) mmol/L Anion Gap (3-11) BUN (7-18) mg/dl Creatinine (0.6-1.2) mg/dl Est Cr Clr Drug Dosing ml/min Est GFR ( Amer) ml/min Est GFR (Non-Af Amer) ml/min BUN/Creatinine Ratio (10-20) Glucose (70-99) mg/dl Calcium (8.5-10.1) mg/dl Magnesium (1.8-2.4) mg/dl Total Bilirubin (0.2-1) mg/dl AST (15-37) U/L ALT (12-78) U/L Alkaline Phosphatase (45-117) U/L Troponin I (0-0.045) ng/ml Total Protein (6.4-8.2) gm/dl Albumin (3.4-5.0) gm/dl Globulin (2.5-4.0) gm/dl Albumin/Globulin Ratio (0.9-2) Lipase (73-393) U/L HCG, Qual (Negative) Urine Color Urine Appearance (Clear) Urine pH (4.5-7.5) Ur Specific [place] (1.000-1.030) Urine Protein (Negative) Urine Glucose (UA) (Negative) Urine Ketones (Negative) Urine Blood (Negative) Urine Nitrite (Negative) Urine Bilirubin (Negative) Urine Urobilinogen (Negative) Ur Leukocyte Esterase (Negative) Urine WBC (Auto) (0-5) /hpf Urine RBC (Auto) (0-4) /hpf U Hyaline Cast (Auto) (0-5) /lpf U Epithel Cells (Auto) (0-5) /lpf Urine Bacteria (Auto) (Negative) Salicylates (2.8-20) mg/dl Urine Opiates Screen (Neg) Ur Methadone, Qual (Neg) Acetaminophen (10-30) ug/ml Urine Barbiturates (Neg) Ur Phencyclidine (PCP) (Neg) U Amphetamin/Meth Scrn (Neg) MDMA (Ecstasy) Screen (Neg) U Benzodiazepines Scrn (Neg) Ur Cocaine Metabolite (Neg) U Marijuana (THC) Screen (Neg) Ethyl Alcohol mg/dL (0-3) mg/dl COVID-19 Eval [facility] SARS-[facility]-2, RNA, NAAT NEGATIVE (NEGATIVE) 09/16/20 09/16/20 Range/Units 05:48 05:48 WBC (4.8-10.8) K/uL RBC (4.2-5.4) M/uL Hgb (12.0-16.0) g/dL Hct (37-47) % MCV (80-100) fL MCH (25-34) pg MCHC (32-36) g/dL RDW Std Deviation (36.4-46.3) fL RDW Coeff of Nando (11.5-14.5) % Plt Count (130-400) K/uL MPV (7.4-10.4) fL Immature Gran % (Auto) % Neut % (Auto) % Lymph % (Auto) % [place] % (Auto) % Eos % (Auto) % Baso % (Auto) % Neut # (Auto) (1.4-6.5) K/uL Lymph # (Auto) (1.2-3.4) K/uL [place] # (Auto) (0.11-0.59) K/uL Eos # (Auto) (0-0.5) K/uL Baso # (Auto) (0-0.2) K/uL Immature Gran # (Auto) (0.00-0.02) K/uL Absolute Nucleated RBC (0-0) K/uL Nucleated RBC % (auto) % Polychromasia Anisocytosis Sickle Cells Target Cells PT (9.0-12.0) Seconds INR (0.9-1.1) ABG pH (7.35-7.45) ABG pCO2 (35-46) mmHg ABG pO2 (80-95) mmHg ABG HCO3 (19-24) mmol/L ABG O2 Saturation (90-95) % ABG Base Excess (-9-1.8) mEq/L Daniel Test (Pos) Oxygen Given Sodium (136-145) mmol/L Potassium (3.5-5.1) mmol/L Chloride (98-107) mmol/L Carbon Dioxide (21-32) mmol/L Anion Gap (3-11) BUN (7-18) mg/dl Creatinine (0.6-1.2) mg/dl Est Cr Clr Drug Dosing ml/min Est GFR ( Amer) ml/min Est GFR (Non-Af Amer) ml/min BUN/Creatinine Ratio (10-20) Glucose (70-99) mg/dl Calcium (8.5-10.1) mg/dl Magnesium (1.8-2.4) mg/dl Total Bilirubin (0.2-1) mg/dl AST (15-37) U/L ALT (12-78) U/L Alkaline Phosphatase (45-117) U/L Troponin I (0-0.045) ng/ml Total Protein (6.4-8.2) gm/dl Albumin (3.4-5.0) gm/dl Globulin (2.5-4.0) gm/dl Albumin/Globulin Ratio (0.9-2) Lipase (73-393) U/L HCG, Qual (Negative) Urine Color Yellow Urine Appearance Clear (Clear) Urine pH 6.5 (4.5-7.5) Ur Specific [place] 1.013 (1.000-1.030) Urine Protein Negative (Negative) Urine Glucose (UA) Negative (Negative) Urine Ketones 1+ H (Negative) Urine Blood Negative (Negative) Urine Nitrite Negative (Negative) Urine Bilirubin Negative (Negative) Urine Urobilinogen Negative (Negative) Ur Leukocyte Esterase Trace H (Negative) Urine WBC (Auto) 1-5 (0-5) /hpf Urine RBC (Auto) 0-4 (0-4) /hpf U Hyaline Cast (Auto) 1-5 (0-5) /lpf U Epithel Cells (Auto) 10-20 H (0-5) /lpf Urine Bacteria (Auto) Negative (Negative) Salicylates (2.8-20) mg/dl Urine Opiates Screen Neg (Neg) Ur Methadone, Qual Neg (Neg) Acetaminophen (10-30) ug/ml Urine Barbiturates Neg (Neg) Ur Phencyclidine (PCP) Neg (Neg) U Amphetamin/Meth Scrn Neg (Neg) MDMA (Ecstasy) Screen Neg (Neg) U Benzodiazepines Scrn Neg (Neg) Ur Cocaine Metabolite Neg (Neg) U Marijuana (THC) Screen Neg (Neg) Ethyl Alcohol mg/dL (0-3) mg/dl COVID-19 Eval Order SARS-CoV-2, RNA, NAAT (NEGATIVE) Imaging Data Radiologist's Impression: Head CT 09/15/20 23:45 CT SCAN OF THE BRAIN WITHOUT IV CONTRAST CLINICAL HISTORY: Overdose. Seizure. COMPARISON STUDY: CT of the brain dated 11/10/2019. TECHNIQUE: Unenhanced axial CT scan of the brain is performed from the vertex to the skull base. A dose lowering technique was utilized adhering to the principles of ALARA. CT DOSE: 537.48 mGy.cm FINDINGS: Brain parenchyma: The brain parenchyma is normal in appearance. There is no hemorrhage, mass effect, or evidence of acute territorial ischemia by CT criteria. Bashir-white matter differentiation is preserved. No extra-axial fluid collection is seen. Ventricles, sulci, cisterns: Normal in configuration. Intracranial vasculature: The visualized intracranial vasculature at the skull base is normal in appearance. Calvarium: Thickening of the sphenoid bone and the left parietal bone is unchanged from previous.. Sinuses and mastoids: The visualized paranasal sinuses are clear. The mastoid air cells are well pneumatized. Orbits: The bony orbits are grossly intact. IMPRESSION: No acute intracranial abnormality. ACT 112: Negative or not required by law. Electronically signed by: Richard Mcmahon M.D. 09/16/2020 7:[address] head: No acute or focal intracranial normalities. Radiologist: Wil Olson MD ECG Data Attestation: I personally reviewed and interpreted this ECG as follows: Indication: + toxicologic Rate (beats per minute): 117 Rhythm: + sinus tachycardia ECG Intervals/blocks: + Normal QRS and + Normal QT ECG [place]: + Normal ECG ST segments: + Normal ST segments MDM Narrative This is a 20-year-old female who presents following an intentional overdose. Patient missed to taking extra of her hydroxyurea however would not disclose if or how much she took of her other routine prescribed medications. 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 I do not suspect occult epilepsy or new onset seizure disorder. No evidence of trauma, ICH or SAH. Patient had no recurrent episodes here. Patient initially tachycardic likely from anxiety and stress over situation. I do not suspect this is secondary to pain crisis or toxidrome. Patient started on IV fluids as a precaution when labs were sent. Patient's labs reassuring. Given patient's reported approximate time of ingestion around 7 PM, patient was already several hours into the ingestion by arrival. Patient had no EKG changes concerning for anticholinergic toxicity. I do not suspect we would see any acute manifestations of hydroxyurea overdose. Patient medically cleared at 3 AM however given it was the middle night and she was still somnolent given the hour, she was seen and evaluated by case management until little while later when she was more awake. Patient continue be monitored and in the morning following their evaluation. I did discuss with the patient and the mother her history and concern for the current situation. 302 petition filled out by case management and signed by myself. An order was placed for continuous cardiac monitoring. The monitor shows a rate of _92__ with _normal sinus_ rhythm. Impression & Plan Overdose, Sickle cell anemia, Depression, Anxiety, Suicidal ideation Discharge Plan Visit Data Chief Complaint: Overdose (Intentional) Stated Complaint: INTENTIONAL OVERDOSE ED Provider: Ramana Almaguer Discharge Problem: Overdose, Sickle cell anemia, Depression, Anxiety, Suicidal ideation Patient Disposition: Home - Self-Care Condition: Good Discharge Instructions Interventions: ED Discharge Assessment Last Done: 07/31/21 10:24 Discharge Problem: Overdose Qualifiers: Encounter type: initial encounter Injury intent: intentional self-harm Qualified Code(s): T50.902A - Poisoning by unspecified drugs, medicaments and biological substances, intentional self-harm, initial encounter Sickle cell anemia Qualifiers: Sickle-cell associated disorders: without crisis Qualified Code(s): D57.1 - Sickle-cell disease without crisis Depression Qualifiers: Depression Type: unspecified Qualified Code(s): F32.9 - Major depressive disorder, single episode, unspecified
[2020-09-16 06:23] LABS: Amphetamines+Metham, Urine Neg (Neg); Barbiturates, Urine Neg (Neg); Benzodiazepine, Urine Neg (Neg); Cocaine, Urine Neg (Neg); MDMA (Ecstacy), Urine Neg (Neg); Methadone, Urine Neg (Neg); Opiate, Urine Neg (Neg); Phencyclidine, Urine Neg (Neg)
[2020-09-16 07:00] LABS: Appearance Urine Clear (Clear); Bacteria Urine Automated Negative (Negative); Bilirubin Urine Negative (Negative); Blood Urine Negative (Negative); Color Urine Yellow; Glucose Urine UA Negative (Negative); Ketones Urine 1+ (Negative); Leukocyte Esterase Urine Trace (Negative); Nitrite Urine Negative (Negative); Protein Urine Negative (Negative); RBC Urine Automated 0-4 /hpf (0-4); Specific Gravity Urine 1.013 (1.000-1.030); Urobilinogen Urine Negative (Negative); pH Urine 6.5 (4.5-7.5)
--- NOTE | 2020-09-16 07:47 | Electrocardiogram Report ---
Test Reason : Blood Pressure : / mmHG Vent. Rate : 117 BPM Atrial Rate : 117 BPM P-R Int : 168 ms QRS Dur : 078 ms QT Int : 310 ms P-R-T Axes : 046 060 040 degrees QTc Int : 432 ms Sinus tachycardia Biatrial enlargement Abnormal ECG When compared with ECG of 30-AUG-2020 12:27, No significant change was found Confirmed by David Garcia ([id number]) on 09/16/2020 7:47:14 AM Referred By: REFERRED SELF Confirmed By:David Garcia
--- NOTE | 2020-09-16 07:58 | CT Scan Report ---
CT SCAN OF THE BRAIN WITHOUT IV CONTRAST CLINICAL HISTORY: Overdose. Seizure. COMPARISON STUDY: CT of the brain dated 11/10/2019. TECHNIQUE: Unenhanced axial CT scan of the brain is performed from the vertex to the skull base. A d ose lowering technique was utilized adhering to the principles of ALARA. CT DOSE: 537.48 mGy.cm FINDINGS: Brain parenchyma: The brain parenchyma is normal in appearance. There is no hemorrhage, mass effect, or evidence of acute territorial ischemia by CT criteria. Bashir-white matter differentiation is preser mack. No extra-axial fluid collection is seen. Ventricles, sulci, cisterns: Normal in configuration. Intracranial vasculature: The visualized intracranial vasculature at the skull base is normal in appe arance. Calvarium: Thickening of the sphenoid bone and the left parietal bone is unchanged from previous.. Sinuses and mastoids: The visualized paranasal sinuses are clear. The mastoid air cells are well pneu matized. Orbits: The bony orbits are grossly intact. IMPRESSION: No acute intracranial abnormality. ACT 112: Negative or not required by law. Electronically signed by: Richard Mcmahon M.D. 09/16/2020 7:57 AM
--- NOTE | 2020-09-16 07:58 | Emergency Department Note ---
ED Visit Note [id number]: Signout from Dr. Blake. 20-year-old female with history of sickle cell crisis, borderline personality disorder, anxiety, depression who presented for overdose on hydroxyurea. Patient medically cleared. 302 signed. Awaiting psychiatric placement. 1024: Patient accepted to 3 S. . : Overdose Qualifiers: Encounter type: initial encounter Injury intent: intentional self-harm Qualified Code(s): T50.902A - Poisoning by unspecified drugs, medicaments and biological substances, intentional self-harm, initial encounter Sickle cell anemia Qualifiers: Sickle-cell associated disorders: without crisis Qualified Code(s): D57.1 - Sickle-cell disease without crisis Depression Qualifiers: Depression Type: unspecified Qualified Code(s): F32.9 - Major depressive disorder, single episode, unspecified
--- NOTE | 2020-09-16 08:04 | XRay Report ---
SINGLE VIEW CHEST CLINICAL HISTORY: Overdose. FINDINGS: An AP, portable, supine chest radiograph is compared to study dated 08/30/2020. Correlation is made with chest CT dated 06/30/2020. The examination is degraded by portable technique and patient rotation. The heart is enlarged. The pulmonary vasculature is noncongested. There is mild bibasilar a telectasis. The lungs and pleural spaces are otherwise clear. No pneumothorax is seen. The bony thora x is grossly intact. IMPRESSION: Cardiomegaly with no acute cardiopulmonary abnormality. ACT 112: Negative or not required by law. Electronically signed by: Richard Mcmahon M.D. 09/16/2020 8:03 AM
[2020-09-16] MEDS ORDERED: BISMUTH SUBSALICYLATE LIQD 236 ML PO PRN (09:33)
[2020-09-16] MEDS ORDERED: SODIUM CHLORIDE 0.65% NA SOLN 45 ML (OCEAN) PRN (09:33)
[2020-09-16] MEDS ORDERED: hydrOXYzine HCl 25 MG TAB PO PRN ×2 (09:33)
[2020-09-16] MEDS ORDERED: ACETAMINOPHEN 325 MG TAB PO PRN (09:33)
[2020-09-16] MEDS ORDERED: ALUMINUM/MAGNESIUM SUSP 30 ML UDC PO PRN (09:33)
[2020-09-16] MEDS ORDERED: MAGNESIUM HYDROXIDE SUSP 30 ML UDC PO PRN (09:33)
[2020-09-16] MEDS ORDERED: TAPENTADOL HCL 50 MG TAB PO PRN (09:35)
[2020-09-16] MEDS ORDERED: ONDANSETRON HOME PACK 4MG OD TAB PO SCH (09:45)
--- NOTE | 2020-09-16 11:05 | History & Physical ---
Date of Service September 16, 2020 Impression / Recommendations Impression 20 yo female with chronic pain, sickle cell, misuse of prescription medications, PNES, multiple prior suicide attempts presents within 1-2 weeks of extended inpatient medical hospitalizations expressing SI s/p OD attempt, unclear if true intent to or attention seeking, potentially dangerous nonetheless. She is unable to maintain safety outside of the hospital. (1) Depression: 09/16/20 The patient was admitted to the [facility] ([facility] mental health unit) on q15 min checks (behavioral with suicide precautions) for safety. The patient will participate in group, recreational, and milieu therapies and will be offered additional individual and family sessions as clinically appropriate. Continue Cymbalta as likely some help with myalgias, hold Buspar as unclear if took extra and ineffective by report. d/c Doxepin given risk of TCAs in OD. Consider mood stabilizing agent. Active/Remission status: currently active Depression Type: major depressive disorder Major depression episode severity: severe Major depression recurrence: recurrent Psychotic features: without psychotic features Qualified Code(s): F33.2 - Major depressive disorder, recurrent severe without psychotic features (2) Borderline personality disorder: 09/16/20--consistency of treatment team to limit splitting, monitor SIB, consider residential DBT program. (3) Sickle cell anemia: 09/16/20--resume outpatient regimen, consult [facility] hospitalists as needed, f/u with Drs. German and Leo as outpatient Sickle-cell associated disorders: with unspecified crisis Qualified Code(s): D57.00 - Hb-SS disease with crisis, unspecified (4) Chronic pain: 09/16/20--Nucynta both standing and prn, consult [facility] hospitalists as needed (5) Psychogenic nonepileptic seizure: 09/16/20--seizure precautions as safety measure to limit unintentional injury Inventory Assets Strengths: intelligent, mother local now Needs: DBT, ongoing pain management Risk Factors Assessment Male: No : No Do You Have Access To A Gun?: No Health Problems: Yes Mental Health Diagnoses: Yes Previous Attempt: Yes Family History of Suicide: No Previous Psychiatric Hospitalization: Yes Protective Factors Assessment : No Responsible for Young Children: No Employed: No Psychiatric History Identifying Data ADÁN PEOPLES is a 20-year-old Japanese F who currently lives in [place], has a history of prolonged hospitalizations for sickle cell/pain control and prior suicide attempts, and was admitted on 09/16/20 09:33 on a 302 involuntary commitment for intentional overdose of medications. Chief Complaint currently uncooperative with questions, 1 word answers or shrugs and historically history is not reliable History of Present Illness Patient was hospitalized on the medical floor for pain complaints from 06/27- 07/06, again 07/26-08/29, seen in ED 08/30 then readmit 09/04-09/08/20. Records reviewed from last stay and was maintained on PO pain medication Nucynta. Has escalated in use of regular release and unclear in past if missing pills were truly OD on misuse. She was not very forthcoming in the ED about exactly what she took, pills plus extra hydroxyurea as a suicidal gesture, mainly as frustrated over chronic pain. She proceeded to have a seizure like event, received prn Ativan in the field; head CT was unremarkable and she has a previous history of PNES (non-epileptic seizures). She related to water resource manager that she became irritated with mother while packing up her apartment. Mother didn't "seem to care" about her reported ingestion so she called a friend who activated EMS. She has been struggling to maintain her course work at [employer]. Patient was talking on phone and eating breakfast but became avoidant when liaison nurse transferred to unit. She is currently tearful, lying in bed with face partially covered refusing to make eye contact or answer questions rather than shoulder shrug. She did related that Buspar is not helpful and it doesn't seem she is taking medications consistently. Past Psychiatric History Previous Psych History: last consultation with out service/contact 12/06, at that time was to be on waitlist for [employer] [facility] DBT program. established dx of MDD recurrent and borderline personality disorder Outpatient Services: prescriptions per Dr. Valverde, dosing of Cymbalta varies per chart/surescript. Previous Psych Admissions: 6--majority in 2020 (3 [facility], 2 [facility], [place], another [facility]. Do You Have Access To A Gun?: No Describe Attempts in the Past: 2019--OD (oxy, tramadol, clonazepam), 2019 OD, 2018 cut wrist Past Medication Trials: duolextine, buspar, Klonopin (has misused in combo with opiates), Lamcital (seizure trial), Zoloft, Lexapro, Risperdal. Additional Notes: additional gestures ages [age] include 2 pain med OD and a toxic ingestion of drinking lemonade mixed with bleach, recorded self doing it and sent to friend Allergies Allergy/AdvReac Type Severity Reaction Status Date / Time No Known Allergies Allergy Verified 09/04/20 21:15 Home Medications Medication Instructions Recorded Confirmed Type folic acid 1 mg tablet 2 mg PO HS 11/18/19 09/16/20 History buspirone 15 mg tablet 45 mg PO HS 01/22/20 09/16/20 History pantoprazole 40 mg tablet,delayed 40 mg PO HS 01/22/20 09/16/20 History release duloxetine 60 mg capsule,delayed 60 mg PO HS 04/17/20 09/16/20 History release hydroxyurea 500 mg capsule 1,000 mg PO BID 30 Days #120 cap 05/01/20 09/16/20 Rx doxepin 25 mg capsule 25 mg PO HS PRN #10 cap 07/06/20 09/16/20 Rx polyethylene glycol 3350 17 gram 17 g PO BID #100 ea 07/06/20 09/16/20 Rx oral powder packet (Miralax) sennosides 8.6 mg tablet (Senokot) 17.2 mg PO QAM #60 tab 07/06/20 09/16/20 Rx diclofenac sodium 1 % topical gel 4 g TOPICAL QID 07/26/20 09/16/20 History tapentadol 150 mg tablet,extended 150 mg PO BID #14 tab 08/29/20 09/16/20 Rx release,12 hr (Nucynta ER) naloxone 4 mg/actuation nasal 1 spray INTRANASAL .Q3 MINUTES PRN 09/04/20 09/16/20 History spray (Narcan) famotidine 20 mg tablet 20 mg PO BID #60 tab 09/08/20 09/16/20 Rx ondansetron 4 mg disintegrating 4 mg PO Q4H #60 tab 09/08/20 09/16/20 Rx tablet pantoprazole 40 mg tablet,delayed 40 mg PO BID #60 tab 09/08/20 09/16/20 Rx release sucralfate 1 gram tablet 1 g PO QID 30 Days #120 tab 09/08/20 09/16/20 Rx tapentadol 50 mg tablet (Nucynta) 50 mg PO Q8H PRN #21 tab 09/08/20 09/16/20 Rx Family History Family History of: Depression Alcohol History Hx of Alcohol Use Over the Past 12 Months: No Smoking Use Smoking Status: Never smoker Substance History Hx of Prescription Med Misuse Over the Past 12 Months: Yes Hx of Over the Counter Med Misuse Over the Past 12 Months: No Hx of Inhalent Misuse Over the Past 12 Months: No Hx of Organic Substance Use Over the Past 12 Months: No Hx of Illegal Substances/Street Drug Use Over Past 12 Months: No Personal History Living Arrangements: Apartment Born In: [facility] Highest Grade Completed: Some College (senior in [employer]) Employment Status: Student Marital Status: Single Number Of Children: none Beliefs That Will Affect Care: None Current Legal Problems: No Hx Traumatic Life Events: Yes Psychological Trauma History Comment: childhood trauma that won't elaborate on Patient History Medical History Borderline personality disorder Chronic pain Depression Murmur, cardiac Nausea Pneumonia Pseudoseizures Seizure-like activity Sickle cell anemia Sickle cell crisis Suicide gesture Surgical History No pertinent past surgical history Family History Mother Hypertension Father Ulcer Other Family history non-contributory Social History Smoking Status: Never smoker Tobacco Type: E-cigarettes / Vaping Second Hand Exposure: Yes; Hx Alcohol Use: Yes Alcohol type: hard liquor Hx Substance Use: No Preferred Language: Albanian Communication Ability: Effective Supervisor Cell Room Required: No Beliefs That Will Affect Care: None marital status: Single Current Living Situation: Other Current Living Situation Comment: apartment with roommates 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 current occupation: [employer] - [employer] major Feels Safe at Home: Yes Assistive Devices: None Review of Systems Review of Systems: patient uncooperative, endorses diffuse pain but appears in NAD. Physical Exam Psychiatric: Orientation: alert and + guarded; + uncooperative Apperance: + disheveled Eye Contact: + poor eye contact Motor Behavior: no abnormal motor movements Speech: + mute (selective) Affect: + depressed affect and + tearful affect Mood: + depressed mood Thought Process: + concrete thought process Thought Content: no delusions patient refuses to answer questions re: thoughts to harm self or others does not appear to be responding to internal stimuli Cognition: + attention not intact Insight: + impaired insight Judgement: + impaired judgement Vital Signs (Past 24 Hours): Last Vital Signs Temp 36.8 C 09/15/20 23:42 Pulse 99 H 09/16/20 09:30 Resp 20 09/16/20 09:30 BP 100/72 09/16/20 09:30 Pulse Ox 98 09/16/20 09:30 Exam Statement: A physical exam was performed in the ED by Dr. Blake for the purposes of medical clearance. I accept that physical as correct and adequa te for the purposes of the inpatient physical exam. Results & Data ([facility]) Laboratory Results Laboratory Results - last 24 hr 09/16/20 09/16/20 09/16/20 00:07 00:07 00:07 WBC 6.31 RBC 2.79 L Hgb 10.4 L Hct 29.8 L MCV 106.8 H MCH 37.3 H MCHC 34.9 RDW Std Deviation 80.0 H RDW Coeff of Nando 20.7 H Plt Count 319 MPV 9.0 Immature Gran % (Auto) 0.2 Neut % (Auto) 36.6 Lymph % (Auto) 55.5 Eagle % (Auto) 6.2 Eos % (Auto) 1.3 Baso % (Auto) 0.2 Neut # (Auto) 2.32 Lymph # (Auto) 3.50 H Eagle # (Auto) 0.39 Eos # (Auto) 0.08 Baso # (Auto) 0.01 Immature Gran # (Auto) 0.01 Absolute Nucleated RBC 0.08 H Nucleated RBC % (auto) 1.3 Polychromasia 1+ Anisocytosis Present Sickle Cells Occasional Target Cells 1+ PT 10.5 INR 1.0 ABG pH ABG pCO2 ABG pO2 ABG HCO3 ABG O2 Saturation ABG Base Excess Daniel Test Oxygen Given Sodium 139 Potassium 3.5 Chloride 111 H Carbon Dioxide 25 Anion Gap 3.0 BUN 5 L Creatinine 0.56 L Est Cr Clr Drug Dosing 164.2 Est GFR ( Amer) > 150.0 Est GFR (Non-Af Amer) 132.4 BUN/Creatinine Ratio 9.5 L Glucose 96 Calcium 9.2 Magnesium 2.1 Total Bilirubin 1.2 H AST 20 ALT 25 Alkaline Phosphatase 74 Troponin I < 0.015 Total Protein 8.4 H Albumin 4.1 Globulin 4.3 H Albumin/Globulin Ratio 1.0 Lipase 187 HCG, Qual Urine Color Urine Appearance Urine pH Ur Specific [place] Urine Protein Urine Glucose (UA) Urine Ketones Urine Blood Urine Nitrite Urine Bilirubin Urine Urobilinogen Ur Leukocyte Esterase Urine WBC (Auto) Urine RBC (Auto) U Hyaline Cast (Auto) U Epithel Cells (Auto) Urine Bacteria (Auto) Salicylates Urine Opiates Screen Ur Methadone, Qual Acetaminophen Urine Barbiturates Ur Phencyclidine (PCP) U Amphetamin/Meth Scrn MDMA (Ecstasy) Screen U Benzodiazepines Scrn Ur Cocaine Metabolite U Marijuana (THC) Screen Ethyl Alcohol mg/dL COVID-19 Eval Order SARS-CoV-2, RNA, NAAT 09/16/20 09/16/20 09/16/20 00:07 00:07 00:20 WBC RBC Hgb Hct MCV MCH MCHC RDW Std Deviation RDW Coeff of Nando Plt Count MPV Immature Gran % (Auto) Neut % (Auto) Lymph % (Auto) Eagle % (Auto) Eos % (Auto) Baso % (Auto) Neut # (Auto) Lymph # (Auto) Eagle # (Auto) Eos # (Auto) Baso # (Auto) Immature Gran # (Auto) Absolute Nucleated RBC Nucleated RBC % (auto) Polychromasia Anisocytosis Sickle Cells Target Cells PT INR ABG pH ABG pCO2 ABG pO2 ABG HCO3 ABG O2 Saturation ABG Base Excess Daniel Test Oxygen Given Sodium Potassium Chloride Carbon Dioxide Anion Gap BUN Creatinine Est Cr Clr Drug Dosing Est GFR ( Amer) Est GFR (Non-Af Amer) BUN/Creatinine Ratio Glucose Calcium Magnesium Total Bilirubin AST ALT Alkaline Phosphatase Troponin I Total Protein Albumin Globulin Albumin/Globulin Ratio Lipase HCG, Qual Negative Urine Color Urine Appearance Urine pH Ur Specific [place] Urine Protein Urine Glucose (UA) Urine Ketones Urine Blood Urine Nitrite Urine Bilirubin Urine Urobilinogen Ur Leukocyte Esterase Urine WBC (Auto) Urine RBC (Auto) U Hyaline Cast (Auto) U Epithel Cells (Auto) Urine Bacteria (Auto) Salicylates < 1.7 L Urine Opiates Screen Ur Methadone, Qual Acetaminophen < 2 L Urine Barbiturates Ur Phencyclidine (PCP) U Amphetamin/Meth Scrn MDMA (Ecstasy) Screen U Benzodiazepines Scrn Ur Cocaine Metabolite U Marijuana (THC) Screen Ethyl Alcohol mg/dL < 3.0 COVID-19 Eval Order SARS-CoV-2, RNA, NAAT 09/16/20 09/16/20 09/16/20 00:20 05:35 05:35 WBC RBC Hgb Hct MCV MCH MCHC RDW Std Deviation RDW Coeff of Nando Plt Count MPV Immature Gran % (Auto) Neut % (Auto) Lymph % (Auto) Eagle % (Auto) Eos % (Auto) Baso % (Auto) Neut # (Auto) Lymph # (Auto) Eagle # (Auto) Eos # (Auto) Baso # (Auto) Immature Gran # (Auto) Absolute Nucleated RBC Nucleated RBC % (auto) Polychromasia Anisocytosis Sickle Cells Target Cells PT INR ABG pH 7.39 ABG pCO2 40 ABG pO2 78 L ABG HCO3 23 ABG O2 Saturation 95.3 H ABG Base Excess -1.5 Daniel Test Pos Oxygen Given RA Sodium Potassium Chloride Carbon Dioxide Anion Gap BUN Creatinine Est Cr Clr Drug Dosing Est GFR ( Amer) Est GFR (Non-Af Amer) BUN/Creatinine Ratio Glucose Calcium Magnesium Total Bilirubin AST ALT Alkaline Phosphatase Troponin I Total Protein Albumin Globulin Albumin/Globulin Ratio Lipase HCG, Qual Urine Color Urine Appearance Urine pH Ur Specific [place] Urine Protein Urine Glucose (UA) Urine Ketones Urine Blood Urine Nitrite Urine Bilirubin Urine Urobilinogen Ur Leukocyte Esterase Urine WBC (Auto) Urine RBC (Auto) U Hyaline Cast (Auto) U Epithel Cells (Auto) Urine Bacteria (Auto) Salicylates Urine Opiates Screen Ur Methadone, Qual Acetaminophen Urine Barbiturates Ur Phencyclidine (PCP) U Amphetamin/Meth Scrn MDMA (Ecstasy) Screen U Benzodiazepines Scrn Ur Cocaine Metabolite U Marijuana (THC) Screen Ethyl Alcohol mg/dL COVID-19 Eval [facility] SARS-CoV-2, RNA, NAAT NEGATIVE 09/16/20 09/16/20 05:48 05:48 WBC RBC Hgb Hct MCV MCH MCHC RDW Std Deviation RDW Coeff of Nando Plt Count MPV Immature Gran % (Auto) Neut % (Auto) Lymph % (Auto) Eagle % (Auto) Eos % (Auto) Baso % (Auto) Neut # (Auto) Lymph # (Auto) Eagle # (Auto) Eos # (Auto) Baso # (Auto) Immature Gran # (Auto) Absolute Nucleated RBC Nucleated RBC % (auto) Polychromasia Anisocytosis Sickle Cells Target Cells PT INR ABG pH ABG pCO2 ABG pO2 ABG HCO3 ABG O2 Saturation ABG Base Excess Daniel Test Oxygen Given Sodium Potassium Chloride Carbon Dioxide Anion Gap BUN Creatinine Est Cr Clr Drug Dosing Est GFR ( Amer) Est GFR (Non-Af Amer) BUN/Creatinine Ratio Glucose Calcium Magnesium Total Bilirubin AST ALT Alkaline Phosphatase Troponin I Total Protein Albumin Globulin Albumin/Globulin Ratio Lipase HCG, Qual Urine Color Yellow Urine Appearance Clear Urine pH 6.5 Ur Specific [place] 1.013 Urine Protein Negative Urine Glucose (UA) Negative Urine Ketones 1+ H Urine Blood Negative Urine Nitrite Negative Urine Bilirubin Negative Urine Urobilinogen Negative Ur Leukocyte Esterase Trace H Urine WBC (Auto) 1-5 Urine RBC (Auto) 0-4 U Hyaline Cast (Auto) 1-5 U Epithel Cells (Auto) 10-20 H Urine Bacteria (Auto) Negative Salicylates Urine Opiates Screen Neg Ur Methadone, Qual Neg Acetaminophen Urine Barbiturates Neg Ur Phencyclidine (PCP) Neg U Amphetamin/Meth Scrn Neg MDMA (Ecstasy) Screen Neg U Benzodiazepines Scrn Neg Ur Cocaine Metabolite Neg U Marijuana (THC) Screen Neg Ethyl Alcohol mg/dL COVID-19 Eval Order SARS-CoV-2, RNA, NAAT Current Inpatient Medications Current Inpatient Medications: Current Inpatient Medications Acetaminophen (Acetaminophen 325 Mg Tab) 650 mg PO Q4H PRN PRN Reason: Headache or Minor Fever Stop: 10/16/20 09:32 Al Hydrox/Mg Hydrox/Simethicone (Aluminum/Magnesium Susp 30 Ml Udc) 30 ml PO Q4H PRN PRN Reason: GI Upset Stop: 10/16/20 09:32 Bismuth Subsalicylate (Bismuth Subsalicylate Liqd 236 Ml) 15 ml PO PRN PRN PRN Reason: Loose Stool Stop: 10/16/20 09:32 Diclofenac Sodium (Diclofenac Sod 1% Gel 100 Gm Tube) 4 gm EXT QID WALTER Stop: 10/16/20 12:59 Duloxetine HCl (Duloxetine Hcl 60 Mg Cap) 60 mg PO HS WALTER Stop: 10/16/20 20:59 Famotidine (Famotidine 20 Mg Tab) 20 mg PO BID [facility] Stop: 10/16/20 20:59 Folic Acid (Folic Acid 1 Mg Tab) 2 mg PO HS WALTER Stop: 10/16/20 20:59 Hydroxyurea (Hydroxyurea 500 Mg Cap) 1,000 mg PO BID WALTER Stop: 10/16/20 20:59 Hydroxyzine HCl (Hydroxyzine Hcl 25 Mg Tab) 50 mg PO HSZ PRN PRN Reason: Insomnia Stop: 10/16/20 09:32 Hydroxyzine HCl (Hydroxyzine Hcl 25 Mg Tab) 25 mg PO Q4H PRN PRN Reason: Anxiety Stop: 10/16/20 09:32 Magnesium Hydroxide (Magnesium Hydroxide Susp 30 Ml Udc) 30 ml PO DAILY PRN PRN Reason: Constipation Stop: 10/16/20 09:32 Non-Formulary Medication (Naloxone [Narcan]) 1 sprays INTNAS .Q3 MINUTES PRN PRN Reason: OVERSEDATION Non-Formulary Medication (Tapentadol Hcl Er) 150 mg PO BID [facility] Stop: 10/16/20 20:59 Ondansetron HCl (Ondansetron Home Pack 4mg Od Tab) homepack PO Q4H [facility] Stop: 10/16/20 09:44 Pantoprazole Sodium (Pantoprazole 40 Mg Tab) 40 mg PO BID [facility] Stop: 10/16/20 20:59 Polyethylene Glycol (Polyethylene (Miralax) 17 Gm Pack) 17 gm PO BIDM [facility] Stop: 10/16/20 16:59 Sennosides (Senna 8.6 Mg Tab) 17.2 mg PO QAM [facility] Stop: 10/17/20 08:59 Sodium Chloride (Sodium Chloride 0.65% Na Soln 45 Ml ([place])) 1 - 2 sprays NA PRN PRN PRN Reason: Nasal Dryness/Congestion Stop: 10/16/20 09:32 Sucralfate (Sucralfate 1 Gm Tab) 1 gm PO QID WALTER Stop: 10/16/20 12:59 Tapentadol (Tapentadol Hcl 50 Mg Tab) 50 mg PO Q8H PRN PRN Reason: pain Stop: 09/30/20 09:34
[2020-09-16] MEDS ORDERED: ONDANSETRON HOME PACK 4MG OD TAB PO PRN (11:47)
[2020-09-16] MEDS ORDERED: ONDANSETRON 4 MG OD TAB PO PRN (12:03)
[2020-09-16] MEDS: SUCRALFATE 1 GM TAB PO SCH ×3 (13:33→21:17)
[2020-09-16] MEDS: DICLOFENAC SOD 1% GEL 100 GM TUBE EXT SCH ×3 (13:33→21:21)
[2020-09-16] MEDS: POLYETHYLENE (MIRALAX) 17 GM PACK PO SCH (16:55)
[2020-09-16] MEDS: TAPENTADOL HCL ER 50 MG TABCR PO SCH (21:15)
[2020-09-16] MEDS: HYDROXYUREA 500 MG CAP PO SCH (21:16)
[2020-09-16] MEDS: FOLIC ACID 1 MG TAB PO SCH (21:19)
[2020-09-16] MEDS: FAMOTIDINE 20 MG TAB PO SCH (21:20)
[2020-09-16] MEDS: DULoxetine HCL 60 MG CAP PO SCH (21:20)
[2020-09-16] MEDS: PANTOprazole 40 MG TAB PO SCH (21:20)
[2020-09-17] MEDS: POLYETHYLENE (MIRALAX) 17 GM PACK PO SCH ×2 (09:15→16:54)
[2020-09-17] MEDS: HYDROXYUREA 500 MG CAP PO SCH ×2 (09:16→21:04)
[2020-09-17] MEDS: FAMOTIDINE 20 MG TAB PO SCH ×2 (09:16→21:10)
[2020-09-17] MEDS: PANTOprazole 40 MG TAB PO SCH ×2 (09:17→21:09)
[2020-09-17] MEDS: SUCRALFATE 1 GM TAB PO SCH ×4 (09:17→21:06)
[2020-09-17] MEDS: TAPENTADOL HCL ER 50 MG TABCR PO SCH ×2 (09:17→21:13)
[2020-09-17] MEDS: SENNA 8.6 MG TAB PO SCH (09:17)
[2020-09-17] MEDS: DICLOFENAC SOD 1% GEL 100 GM TUBE EXT SCH ×4 (09:34→21:48)
[2020-09-17] MEDS: TAPENTADOL HCL 50 MG TAB PO PRN (13:11)
--- NOTE | 2020-09-17 14:02 | Psychiatric Progress Note ---
Date of Service September 17, 2020 Impression / Recommendations Impression 20 yo female with chronic pain, sickle cell, misuse of prescription medications, PNES, multiple prior suicide attempts presents within 1-2 weeks of extended inpatient medical hospitalizations expressing SI s/p OD attempt, unclear if true intent to or attention seeking, potentially dangerous nonetheless. She is unable to maintain safety outside of the hospital. Impression: more cooperative today, ongoing SI. (1) Depression: 09/17/20--patient states never started Wellbutrin as prescribed by Dr. Valverde and prefers to continue her hospital dose of Cymbalta. Reviewed indication for atypical as a mood stabilizer in BPD and to target impulsivity given active depression and she is agreeable to begin Zyprexa 5 mg hs trial here as prescribed by Dr. Valverde. Risks/benefits/alternatives were reviewed re: antipsychotics for mood and/or psychosis. Discussion included but was not limited to metabolic side effects, risks of TD and suicidal thoughts. There were no abnormal motor movements at baseline. Fasting glucose and lipid panel ordered for baseline monitoring. 09/16/20 The patient was admitted to the [facility] ([facility] mental health unit) on q15 min checks (behavioral with suicide precautions) for safety. The patient will participate in group, recreational, and milieu therapies and will be offered additional individual and family sessions as clinically appropriate. Continue Cymbalta as likely some help with myalgias, hold Buspar as unclear if took extra and ineffective by report. d/c Doxepin given risk of TCAs in OD. Consider mood stabilizing agent. (2) Borderline personality disorder: 09/16/20--consistency of treatment team to limit splitting, monitor SIB, consider residential DBT program. (3) Sickle cell anemia: 09/16/20--resume outpatient regimen, consult [facility] hospitalists as needed, f/u with Drs. German and Leo as outpatient (4) Chronic pain: 09/17/20--declining inpatient residential program (like [facility] pain management program) 09/16/20--Nucynta both standing and prn, consult [facility] hospitalists as needed (5) Psychogenic nonepileptic seizure: 09/16/20--seizure precautions as safety measure to limit unintentional injury Inventory Assets Strengths: intelligent, mother local now Needs: DBT, ongoing pain management Risk Factors Assessment Male: No : No Do You Have Access To A Gun?: No Health Problems: Yes Mental Health Diagnoses: Yes Previous Attempt: Yes Family History of Suicide: No Previous Psychiatric Hospitalization: Yes Protective Factors Assessment : No Responsible for Young Children: No Employed: No Interval History Identifying Information 20 yo female with chronic pain/occlusive sickle cell disease, PNES, and hx of recurrent self-harm due to borderline personality disorder admit on 302 commitment s/p reported OD. Chief Complaint "my family is not supportive". Review of Systems Sleep Information Total Hours of Sleep: 12.5 Meal Information Percent Meal Consumed - Breakfast: 25 Percent Meal Consumed - Lunch: 40 Percent Meal Consumed - Dinner: 100 Subjective Subjective Patient was seen & assessed and interval progress reviewed with nursing. Wanted reassurance that she is not a bad or selfish person for attempting to harm herself. Doesn't feel she can be staff staying with her mother in [place] through September until mother returns to [facility]. She doesn't feel family support her withdrawing from school but stressed about not finishing summer classes. More cooperative today. Extensive review of medication list given recurrent hospitalizations/multiple providers and patient compliance history. Physical Exam Psychiatric Orientation: alert and oriented x 3 Apperance: appropriately dressed and appropriately groomed Eye Contact: good eye contact Motor Behavior: no abnormal motor movements Speech: normal rate/rhythm/volume of speech Affect: + depressed affect Mood: + depressed mood Thought Process: goal directed thought process Thought Content: reality based without delusions reports ongoing suicidal thoughts without intent or plan on unit, "I just can't keep living like this, I wanted to and only told my boyfriend I took pills because I made a promise". Homicidal Thoughts: denies homicidal thoughts Hallucinations: no auditory hallucinations and no visual hallucinations Cognition: attention grossly intact and language grossly intact Estimated Intelligence: consistent with education level Insight: + limited insight Judgement: + limited judgement Vital Signs (Past 24 Hours) Last Vital Signs Temp 37.1 C 09/17/20 06:54 Pulse 106 H 09/17/20 06:54 Resp 16 09/17/20 06:54 BP 107/68 09/17/20 06:54 Pulse Ox 98 09/16/20 09:30 Results & Data ([facility]) Current Inpatient Medications Current Inpatient Medications: Current Inpatient Medications Acetaminophen (Acetaminophen 325 Mg Tab) 650 mg PO Q4H PRN PRN Reason: Headache or Minor Fever Stop: 10/16/20 09:32 Al Hydrox/Mg Hydrox/Simethicone (Aluminum/Magnesium Susp 30 Ml Udc) 30 ml PO Q4H PRN PRN Reason: GI Upset Stop: 10/16/20 09:32 Bismuth Subsalicylate (Bismuth Subsalicylate Liqd 236 Ml) 15 ml PO PRN PRN PRN Reason: Loose Stool Stop: 10/16/20 09:32 Diclofenac Sodium (Diclofenac Sod 1% Gel 100 Gm Tube) 4 gm EXT QID [facility] Stop: 10/16/20 12:59 Last Admin: 09/17/20 13:08 Dose: Not Given Documented by: Duloxetine HCl (Duloxetine Hcl 60 Mg Cap) 60 mg PO HS [facility] Stop: 10/16/20 20:59 Last Admin: 09/16/20 21:20 Dose: 60 mg Documented by: Famotidine (Famotidine 20 Mg Tab) 20 mg PO BID [facility] Stop: 10/16/20 20:59 Last Admin: 09/17/20 09:16 Dose: 20 mg Documented by: Folic Acid (Folic Acid 1 Mg Tab) 2 mg PO HS [facility] Stop: 10/16/20 20:59 Last Admin: 09/16/20 21:19 Dose: 2 mg Documented by: Hydroxyurea (Hydroxyurea 500 Mg Cap) 1,000 mg PO BID [facility] Stop: 10/16/20 20:59 Last Admin: 09/17/20 09:16 Dose: 1,000 mg Documented by: Hydroxyzine HCl (Hydroxyzine Hcl 25 Mg Tab) 50 mg PO HSZ PRN PRN Reason: Insomnia Stop: 10/16/20 09:32 Hydroxyzine HCl (Hydroxyzine Hcl 25 Mg Tab) 25 mg PO Q4H PRN PRN Reason: Anxiety Stop: 10/16/20 09:32 Magnesium Hydroxide (Magnesium Hydroxide Susp 30 Ml Udc) 30 ml PO DAILY PRN PRN Reason: Constipation Stop: 10/16/20 09:32 Olanzapine (Olanzapine 5 Mg Tablet) 5 mg PO HS [facility] Stop: 10/17/20 21:59 Ondansetron HCl (Ondansetron 4 Mg Od Tab) 4 mg PO Q6 PRN PRN Reason: Nausea Stop: 10/16/20 12:02 Pantoprazole Sodium (Pantoprazole 40 Mg Tab) 40 mg PO BID [facility] Stop: 10/16/20 20:59 Last Admin: 09/17/20 09:17 Dose: 40 mg Documented by: Polyethylene Glycol (Polyethylene (Miralax) 17 Gm Pack) 17 gm PO BIDM [facility] Stop: 10/16/20 16:59 Last Admin: 09/17/20 09:15 Dose: Not Given Documented by: Sennosides (Senna 8.6 Mg Tab) 17.2 mg PO QAM [facility] Stop: 10/17/20 08:59 Last Admin: 09/17/20 09:17 Dose: 17.2 mg Documented by: Sodium Chloride (Sodium Chloride 0.65% Na Soln 45 Ml ([place])) 1 - 2 sprays NA PRN PRN PRN Reason: Nasal Dryness/Congestion Stop: 10/16/20 09:32 Sucralfate (Sucralfate 1 Gm Tab) 1 gm PO QID [facility] Stop: 10/16/20 12:59 Last Admin: 09/17/20 13:12 Dose: 1 gm Documented by: Tapentadol (Tapentadol Hcl Er 50 Mg Tabcr) 150 mg PO BID [facility] Stop: 09/30/20 20:59 Last Admin: 09/17/20 09:17 Dose: 150 mg Documented by: Tapentadol (Tapentadol Hcl 50 Mg Tab) 50 mg PO Q4H PRN PRN Reason: Pain Stop: 10/01/20 11:14 Last Admin: 09/17/20 13:11 Dose: 50 mg Documented by: Mental Health & Subst Abuse Tx Therapist Name of Therapist: N/A County Surveyor Name of County Surveyor: N/A Post Discharge Appointments Primary Care Physician Name Of Family Doctor: Health services (1) Depression Active/Remission status: currently active Depression Type: major depressive disorder Major depression episode severity: severe Major depression recurrence: recurrent Psychotic features: without psychotic features Qualified Code(s): F33.2 - Major depressive disorder, recurrent severe without psychotic features (2) Sickle cell anemia Sickle-cell associated disorders: with unspecified crisis Qualified Code(s): D57.00 - Hb-SS disease with crisis, unspecified
[2020-09-17] MEDS: OLANZapine 5 MG TABLET PO SCH (21:07)
[2020-09-17] MEDS: DULoxetine HCL 60 MG CAP PO SCH (21:07)
[2020-09-17] MEDS: FOLIC ACID 1 MG TAB PO SCH (21:08)
--- NOTE | 2020-09-18 07:58 | Psychiatric Progress Note ---
Date of Service September 18, 2020 Impression / Recommendations Impression 20 yo female with chronic pain, sickle cell, misuse of prescription medications, PNES, multiple prior suicide attempts presents within 1-2 weeks of extended inpatient medical hospitalizations expressing SI s/p OD attempt, unclear if true intent to or attention seeking, potentially dangerous nonetheless. She is unable to maintain safety outside of the hospital. Impression: more cooperative today, no direct SI reported but no remorse for behavior prior to admission. (1) Depression: 09/18/20--reviewed metabolic labs, continue Zyprexa trial. 09/17/20--patient states never started Wellbutrin as prescribed by Dr. Valverde and prefers to continue her hospital dose of Cymbalta. Reviewed indication for atypical as a mood stabilizer in BPD and to target impulsivity given active depression and she is agreeable to begin Zyprexa 5 mg hs trial here as prescribed by Dr. Valverde. Risks/benefits/alternatives were reviewed re: antipsychotics for mood and/or psychosis. Discussion included but was not limited to metabolic side effects, risks of TD and suicidal thoughts. There were no abnormal motor movements at baseline. Fasting glucose and lipid panel ordered for baseline monitoring. 09/16/20 The patient was admitted to the [facility] ([facility] inpatient mental health unit) on q15 min checks (behavioral with suicide precautions) for safety. The patient will participate in group, recreational, and milieu therapies and will be offered additional individual and family sessions as clinically appropriate. Continue Cymbalta as likely some help with myalgias, hold Buspar as unclear if took extra and ineffective by report. d/c Doxepin given risk of TCAs in OD. Consider mood stabilizing agent. (2) Borderline personality disorder: 09/16/20--consistency of treatment team to limit splitting, monitor SIB, consider residential DBT program. (3) Sickle cell anemia: 09/16/20--resume outpatient regimen, consult [facility] hospitalists as needed, f/u with Drs. German and Leo as outpatient (4) Chronic pain: 09/17/20--declining inpatient residential program (like [facility] pain management program) 09/16/20--Nucynta both standing and prn, consult [facility] hospitalists as needed (5) Psychogenic nonepileptic seizure: 09/16/20--seizure precautions as safety measure to limit unintentional injury Inventory Assets Strengths: intelligent, mother local now Needs: DBT, ongoing pain management Risk Factors Assessment Male: No : No Do You Have Access To A Gun?: No Health Problems: Yes Mental Health Diagnoses: Yes Previous Attempt: Yes Family History of Suicide: No Previous Psychiatric Hospitalization: Yes Protective Factors Assessment : No Responsible for Young Children: No Employed: No Interval History Identifying Information 20 yo female with chronic pain/occlusive sickle cell disease, PNES, and hx of recurrent self-harm due to borderline personality disorder admit on 302 commitment s/p reported OD. Chief Complaint "i want to be in [place], I will talk to my sister but otherwise I'm ready to see friends". Review of Systems Sleep Information Total Hours of Sleep: 7 Meal Information Percent Meal Consumed - Breakfast: 25 Percent Meal Consumed - Lunch: 40 Percent Meal Consumed - Dinner: 100 Subjective Subjective Patient was seen & assessed and interval progress reviewed with treatment team. Patient has attempted to bend rules like wanting to order extra food or eat in the activity room rather than in lounge with peers. Accepting of Zyprexa trial last night. No side effects reported. She seems calmer today, even joking a bit as discussed living with a [place] friend in a new apartment 10/07. Doesn't really have great explaination for behavior that led to admission other than wants family to understand her pain. She did speak with her father but remains resistant to speaking with mother. Physical Exam Psychiatric Orientation: alert and oriented x 3 Apperance: appropriately dressed and appropriately groomed Eye Contact: good eye contact Motor Behavior: no abnormal motor movements Speech: normal rate/rhythm/volume of speech Affect: + depressed affect Mood: + depressed mood Thought Process: goal directed thought process Thought Content: reality based without delusions; no delusions Suicidal Thoughts: denies suicidal thoughts (in hospital but continues to report the hopelessness of life) Homicidal Thoughts: denies homicidal thoughts Hallucinations: no auditory hallucinations and no visual hallucinations Cognition: attention grossly intact and language grossly intact Estimated Intelligence: consistent with education level Insight: + limited insight Judgement: + limited judgement Vital Signs (Past 24 Hours) Last Vital Signs Temp 36.9 C 09/18/20 06:44 Pulse 103 H 09/18/20 06:45 Resp 18 09/18/20 06:44 BP 93/60 L 09/18/20 06:45 Pulse Ox 98 09/16/20 09:30 Results & Data ([facility]) Laboratory Results 09/18/20 Range/Units 08:01 Fasting Glucose 99 (70-99) mg/dl Triglycerides 47 (0-150) mg/dl Cholesterol 137 (0-200) mg/dl LDL Cholesterol, Calc 82 mg/dl VLDL Cholesterol, Calc 9 mg/dl HDL Cholesterol 46 mg/dl Cholesterol/HDL Ratio 3 Current Inpatient Medications Current Inpatient Medications: Current Inpatient Medications Acetaminophen (Acetaminophen 325 Mg Tab) 650 mg PO Q4H PRN PRN Reason: Headache or Minor Fever Stop: 10/16/20 09:32 Al Hydrox/Mg Hydrox/Simethicone (Aluminum/Magnesium Susp 30 Ml Udc) 30 ml PO Q4H PRN PRN Reason: GI Upset Stop: 10/16/20 09:32 Bismuth Subsalicylate (Bismuth Subsalicylate Liqd 236 Ml) 15 ml PO PRN PRN PRN Reason: Loose Stool Stop: 10/16/20 09:32 Diclofenac Sodium (Diclofenac Sod 1% Gel 100 Gm Tube) 4 gm EXT QID [facility] Stop: 10/16/20 12:59 Last Admin: 09/17/20 21:48 Dose: Not Given Documented by: Duloxetine HCl (Duloxetine Hcl 60 Mg Cap) 60 mg PO HS [facility] Stop: 10/16/20 20:59 Last Admin: 09/17/20 21:07 Dose: 60 mg Documented by: Famotidine (Famotidine 20 Mg Tab) 20 mg PO BID [facility] Stop: 10/16/20 20:59 Last Admin: 09/17/20 21:10 Dose: 20 mg Documented by: Folic Acid (Folic Acid 1 Mg Tab) 2 mg PO HS [facility] Stop: 10/16/20 20:59 Last Admin: 09/17/20 21:08 Dose: 2 mg Documented by: Hydroxyurea (Hydroxyurea 500 Mg Cap) 1,000 mg PO BID [facility] Stop: 10/16/20 20:59 Last Admin: 09/17/20 21:04 Dose: 1,000 mg Documented by: Hydroxyzine HCl (Hydroxyzine Hcl 25 Mg Tab) 50 mg PO HSZ PRN PRN Reason: Insomnia Stop: 10/16/20 09:32 Hydroxyzine HCl (Hydroxyzine Hcl 25 Mg Tab) 25 mg PO Q4H PRN PRN Reason: Anxiety Stop: 10/16/20 09:32 Magnesium Hydroxide (Magnesium Hydroxide Susp 30 Ml Udc) 30 ml PO DAILY PRN PRN Reason: Constipation Stop: 10/16/20 09:32 Olanzapine (Olanzapine 5 Mg Tablet) 5 mg PO HS [facility] Stop: 10/17/20 21:59 Last Admin: 09/17/20 21:07 Dose: 5 mg Documented by: Ondansetron HCl (Ondansetron 4 Mg Od Tab) 4 mg PO Q6 PRN PRN Reason: Nausea Stop: 10/16/20 12:02 Pantoprazole Sodium (Pantoprazole 40 Mg Tab) 40 mg PO BID [facility] Stop: 10/16/20 20:59 Last Admin: 09/17/20 21:09 Dose: 40 mg Documented by: Polyethylene Glycol (Polyethylene (Miralax) 17 Gm Pack) 17 gm PO BIDM [facility] Stop: 10/16/20 16:59 Last Admin: 09/17/20 16:54 Dose: 17 gm Documented by: Sennosides (Senna 8.6 Mg Tab) 17.2 mg PO QAM [facility] Stop: 10/17/20 08:59 Last Admin: 09/17/20 09:17 Dose: 17.2 mg Documented by: Sodium Chloride (Sodium Chloride 0.65% Na Soln 45 Ml ([place])) 1 - 2 sprays NA PRN PRN PRN Reason: Nasal Dryness/Congestion Stop: 10/16/20 09:32 Sucralfate (Sucralfate 1 Gm Tab) 1 gm PO QID [facility] Stop: 10/16/20 12:59 Last Admin: 09/17/20 21:06 Dose: 1 gm Documented by: Tapentadol (Tapentadol Hcl Er 50 Mg Tabcr) 150 mg PO BID [facility] Stop: 09/30/20 20:59 Last Admin: 09/17/20 21:13 Dose: 150 mg Documented by: Tapentadol (Tapentadol Hcl 50 Mg Tab) 50 mg PO Q4H PRN PRN Reason: Pain Stop: 10/01/20 11:14 Last Admin: 09/17/20 13:11 Dose: 50 mg Documented by: Mental Health & Subst Abuse Tx Therapist Name of Therapist: N/A Membership Counselor Name of Membership Counselor: N/A Post Discharge Appointments Primary Care Physician Name Of Family Doctor: Health services (1) Sickle cell anemia Sickle-cell associated disorders: with unspecified crisis Qualified Code(s): D57.00 - Hb-SS disease with crisis, unspecified (2) Depression Active/Remission status: currently active Depression Type: major depressive disorder Major depression episode severity: severe Major depression r ecurrence: recurrent Psychotic features: without psychotic features Qualified Code(s): F33.2 - Major depressive disorder, recurrent severe without psychotic features
[2020-09-18 08:45] LABS: Glucose Fasting 99 mg/dl (70-99)
[2020-09-18 08:51] LABS: Chol HDL Ratio 3; Cholesterol 137 mg/dl (0-200); HDL Cholesterol 46 mg/dl; LDL Cholesterol Calculated 82 mg/dl; Triglycerides 47 mg/dl (0-150); VLDL Cholesterol 9 mg/dl
[2020-09-18] MEDS: FAMOTIDINE 20 MG TAB PO SCH ×2 (09:42→21:36)
[2020-09-18] MEDS: HYDROXYUREA 500 MG CAP PO SCH ×2 (09:42→21:33)
[2020-09-18] MEDS: PANTOprazole 40 MG TAB PO SCH ×2 (09:42→21:35)
[2020-09-18] MEDS: SENNA 8.6 MG TAB PO SCH (09:43)
[2020-09-18] MEDS: TAPENTADOL HCL ER 50 MG TABCR PO SCH ×2 (09:43→21:41)
[2020-09-18] MEDS: SUCRALFATE 1 GM TAB PO SCH ×4 (09:43→21:35)
[2020-09-18] MEDS: POLYETHYLENE (MIRALAX) 17 GM PACK PO SCH ×2 (09:47→17:27)
[2020-09-18] MEDS: DICLOFENAC SOD 1% GEL 100 GM TUBE EXT SCH ×4 (09:47→21:46)
[2020-09-18] MEDS: DULoxetine HCL 60 MG CAP PO SCH (21:35)
[2020-09-18] MEDS: FOLIC ACID 1 MG TAB PO SCH (21:37)
[2020-09-18] MEDS: OLANZapine 5 MG TABLET PO SCH (21:38)
--- NOTE | 2020-09-19 07:57 | Psychiatric Progress Note ---
Date of Service September 19, 2020 Impression / Recommendations Impression 20 yo female with chronic pain, sickle cell, misuse of prescription medications, PNES, multiple prior suicide attempts presents within 1-2 weeks of extended inpatient medical hospitalizations expressing SI s/p OD attempt, unclear if true intent to or attention seeking, potentially dangerous nonetheless. She is unable to maintain safety outside of the hospital. Impression: improving (1) Depression: 09/18/20--continue current meds and safety planning, complex family situation and logistics of getting to her and personal items to [place] for 3 weeks. 09/17/20--patient states never started Wellbutrin as prescribed by Dr. Valverde and prefers to continue her hospital dose of Cymbalta. Reviewed indication for atypical as a mood stabilizer in BPD and to target impulsivity given active depression and she is agreeable to begin Zyprexa 5 mg hs trial here as prescribed by Dr. Valverde. Risks/benefits/alternatives were reviewed re: antipsychotics for mood and/or psychosis. Discussion included but was not limited to metabolic side effects, risks of TD and suicidal thoughts. There were no abnormal motor movements at baseline. Fasting glucose and lipid panel ordered for baseline monitoring. 09/16/20 The patient was admitted to the [facility] ([facility]) on q15 min checks (behavioral with suicide precautions) for safety. The patient will participate in group, recreational, and milieu therapies and will be offered additional individual and family sessions as clinically appropriate. Continue Cymbalta as likely some help with myalgias, hold Buspar as unclear if took extra and ineffective by report. d/c Doxepin given risk of TCAs in OD. Consider mood stabilizing agent. (2) Borderline personality disorder: 09/19/20--minimal splitting but ongoing family conflict, therapist through [facility] is already initiating referrals to more DBT specific therapy. 09/16/20--consistency of treatment team to limit splitting, monitor SIB, consider residential DBT program. (3) Sickle cell anemia: 09/16/20--resume outpatient regimen, consult [facility] hospitalists as needed, f/u with Drs. German and Leo as outpatient (4) Chronic pain: 09/17/20--declining inpatient residential program (like [facility] pain me nagement program) 09/16/20--Nucynta both standing and prn, consult [facility] hospitalists as needed (5) Psychogenic nonepileptic seizure: (5) Psychogenic nonepileptic seizure: 09/16/20--seizure precautions as safety measure to limit unintentional injury Inventory Assets Strengths: intelligent, mother local now Needs: DBT, ongoing pain management Risk Factors Assessment Male: No : No Do You Have Access To A Gun?: No Health Problems: Yes Mental Health Diagnoses: Yes Previous Attempt: Yes Family History of Suicide: No Previous Psychiatric Hospitalization: Yes Protective Factors Assessment : No Responsible for Young Children: No Employed: No Interval History Identifying Information 20 yo female with chronic pain/occlusive sickle cell disease, PNES, and hx of recurrent self-harm due to borderline personality disorder admit on 302 commitment s/p reported OD. Chief Complaint "I feel like Nelson thomson lied to me", joking about how [place] was when she got to [facility] Review of Systems Sleep Information Total Hours of Sleep: 5.5 Meal Information Percent Meal Consumed - Breakfast: 0 Percent Meal Consumed - Lunch: 0 Percent Meal Consumed - Dinner: 50 Nutrition Comment: pt. plans to reheat take-out food this afternoon Subjective Subjective Patient was seen & assessed and interval progress reviewed with nursing and social work. Patient reported mother hung up on her when tried to contact her about a family meeting. Patient has changed her main contact center associate/logistics of getting to [place] several times. She is tolerating Zyprexa with improved sleep and can test unit rules but has been generally pleasant with staff. She talked about how isolating it was to live in [place] as a [employer] student as no reliable transportation and that international students are misled. When it was clear a family session would be required if planning to go to [place] to retrieve personal items from mom she opted to involve a cousin (sister still in [place]) in stay/safety planning. Physical Exam Psychiatric Orientation: alert and oriented x 3 Apperance: appropriately dressed and appropriately groomed Eye Contact: good eye contact Motor Behavior: no abnormal motor movements Speech: normal rate/rhythm/volume of speech Affect: + depressed affect Mood: + depressed mood Thought Process: goal directed thought process Thought Content: reality based without delusions; no delusions Suicidal Thoughts: denies suicidal thoughts (in hospital but continues to report the hopelessness of life) Homicidal Thoughts: denies homicidal thoughts Hallucinations: no auditory hallucinations and no visual hallucinations Cognition: attention grossly intact and language grossly intact Estimated Intelligence: consistent with education level Insight: + limited insight Judgement: + limited judgement Vital Signs (Past 24 Hours) Last Vital Signs Temp 36.6 C 09/19/20 06:50 Pulse 86 09/19/20 06:50 Resp 16 09/19/20 06:50 BP 100/59 L 09/19/20 06:50 Pulse Ox 98 09/16/20 09:30 Results & Data ([facility]) Laboratory Results Laboratory Results - last 24 hr 09/18/20 08:01 Fasting Glucose 99 Triglycerides 47 Cholesterol 137 LDL Cholesterol, Calc 82 VLDL Cholesterol, Calc 9 HDL Cholesterol 46 Cholesterol/HDL Ratio 3 Current Inpatient Medications Current Inpatient Medications: Current Inpatient Medications Acetaminophen (Acetaminophen 325 Mg Tab) 650 mg PO Q4H PRN PRN Reason: Headache or Minor Fever Stop: 10/16/20 09:32 Al Hydrox/Mg Hydrox/Simethicone (Aluminum/Magnesium Susp 30 Ml Udc) 30 ml PO Q4H PRN PRN Reason: GI Upset Stop: 10/16/20 09:32 Bismuth Subsalicylate (Bismuth Subsalicylate Liqd 236 Ml) 15 ml PO PRN PRN PRN Reason: Loose Stool Stop: 10/16/20 09:32 Diclofenac Sodium (Diclofenac Sod 1% Gel 100 Gm Tube) 4 gm EXT QID WALTER Stop: 10/16/20 12:59 Last Admin: 09/18/20 21:46 Dose: Not Given Documented by: Duloxetine HCl (Duloxetine Hcl 60 Mg Cap) 60 mg PO WALTER Stop: 10/16/20 20:59 Last Admin: 09/18/20 21:35 Dose: 60 mg Documented by: Famotidine (Famotidine 20 Mg Tab) 20 mg PO BID WALTER Stop: 10/16/20 20:59 Last Admin: 09/18/20 21:36 Dose: 20 mg Documented by: Folic Acid (Folic Acid 1 Mg Tab) 2 mg PO HS WALTER Stop: 10/16/20 20:59 Last Admin: 09/18/20 21:37 Dose: 2 mg Documented by: Hydroxyurea (Hydroxyurea 500 Mg Cap) 1,000 mg PO BID WALTER Stop: 10/16/20 20:59 Last Admin: 09/18/20 21:33 Dose: 1,000 mg Documented by: Hydroxyzine HCl (Hydroxyzine Hcl 25 Mg Tab) 50 mg PO HSZ PRN PRN Reason: Insomnia Stop: 10/16/20 09:32 Hydroxyzine HCl (Hydroxyzine Hcl 25 Mg Tab) 25 mg PO Q4H PRN PRN Reason: Anxiety Stop: 10/16/20 09:32 Magnesium Hydroxide (Magnesium Hydroxide Susp 30 Ml Udc) 30 ml PO DAILY PRN PRN Reason: Constipation Stop: 10/16/20 09:32 Olanzapine (Olanzapine 5 Mg Tablet) 5 mg PO HS [facility] Stop: 10/17/20 21:59 Last Admin: 09/18/20 21:38 Dose: 5 mg Documented by: Ondansetron HCl (Ondansetron 4 Mg Od Tab) 4 mg PO Q6 PRN PRN Reason: Nausea Stop: 10/16/20 12:02 Pantoprazole Sodium (Pantoprazole 40 Mg Tab) 40 mg PO BID [facility] Stop: 10/16/20 20:59 Last Admin: 09/18/20 21:35 Dose: 40 mg Documented by: Polyethylene Glycol (Polyethylene (Miralax) 17 Gm Pack) 17 gm PO BIDM [facility] Stop: 10/16/20 16:59 Last Admin: 09/18/20 17:27 Dose: Not Given Documented by: Sennosides (Senna 8.6 Mg Tab) 17.2 mg PO QAM [facility] Stop: 10/17/20 08:59 Last Admin: 09/18/20 09:43 Dose: 17.2 mg Documented by: Sodium Chloride (Sodium Chloride 0.65% Na Soln 45 Ml (Stanley)) 1 - 2 sprays NA PRN PRN PRN Reason: Nasal Dryness/Congestion Stop: 10/16/20 09:32 Sucralfate (Sucralfate 1 Gm Tab) 1 gm PO QID [facility] Stop: 10/16/20 12:59 Last Admin: 09/18/20 21:35 Dose: 1 gm Documented by: Tapentadol (Tapentadol Hcl Er 50 Mg Tabcr) 150 mg PO BID [facility] Stop: 09/30/20 20:59 Last Admin: 09/18/20 21:41 Dose: 150 mg Documented by: Tapentadol (Tapentadol Hcl 50 Mg Tab) 50 mg PO Q4H PRN PRN Reason: Pain Stop: 10/01/20 11:14 Last Admin: 09/17/20 13:11 Dose: 50 mg Documented by: Mental Health & Subst Abuse Tx Psychiatrist Name of Psychiatrist: Dr. Valverde Psychiatrist's Date of Appointment with Psychiatrist: 09/27/20 Time of Appointment with Psychiatrist: 12pm Psychiatric Appointment Comment: telehealth Therapist Name of Therapist: Dr. Goyal- [facility] Therapist's Date of Therapist Appointment: 10/09/20 Time of Therapist Appointment: 10am Therapy Appointment Comment: [address], [place], [place] Head Waiter Name of Head Waiter: N/A Post Discharge Appointments Primary Care Physician Name Of Family Doctor: [facility]- Dr. German Primary [facility] Date of Appointment with PCP: 10/10/20 Time of Appointment with PCP: 12:50pm Provider Appointment Comment: [address], [place], [place] (1) Sickle cell anemia Sickle-cell associated disorders: with unspecified crisis Qualified Code(s): D57.00 - Hb-SS disease with crisis, unspecified (2) Depression Active/Remission status: currently active Depression Type: major depressive disorder Major depression episode severity: severe Major depression recurrence: recurrent Psychotic features: without psychotic features Qualified Code(s): F33.2 - Major depressive disorder, recurrent severe without psychotic features
[2020-09-19] MEDS: FAMOTIDINE 20 MG TAB PO SCH ×2 (09:44→21:36)
[2020-09-19] MEDS: PANTOprazole 40 MG TAB PO SCH ×2 (09:44→21:37)
[2020-09-19] MEDS: HYDROXYUREA 500 MG CAP PO SCH ×2 (09:44→21:36)
[2020-09-19] MEDS: SUCRALFATE 1 GM TAB PO SCH ×4 (09:45→21:37)
[2020-09-19] MEDS: TAPENTADOL HCL ER 50 MG TABCR PO SCH ×2 (09:45→21:37)
[2020-09-19] MEDS: SENNA 8.6 MG TAB PO SCH (09:45)
[2020-09-19] MEDS: DICLOFENAC SOD 1% GEL 100 GM TUBE EXT SCH ×4 (09:51→22:25)
[2020-09-19] MEDS: POLYETHYLENE (MIRALAX) 17 GM PACK PO SCH ×2 (09:51→17:54)
[2020-09-19] MEDS: TAPENTADOL HCL 50 MG TAB PO PRN (18:03)
[2020-09-19] MEDS: DULoxetine HCL 60 MG CAP PO SCH (21:38)
[2020-09-19] MEDS: FOLIC ACID 1 MG TAB PO SCH (21:38)
[2020-09-19] MEDS: OLANZapine 5 MG TABLET PO SCH (21:38)
[2020-09-20] MEDS: HYDROXYUREA 500 MG CAP PO SCH (09:07)
[2020-09-20] MEDS: DICLOFENAC SOD 1% GEL 100 GM TUBE EXT SCH ×2 (09:07→13:03)
[2020-09-20] MEDS: FAMOTIDINE 20 MG TAB PO SCH (09:07)
[2020-09-20] MEDS: SUCRALFATE 1 GM TAB PO SCH ×2 (09:08→13:02)
[2020-09-20] MEDS: PANTOprazole 40 MG TAB PO SCH (09:08)
[2020-09-20] MEDS: SENNA 8.6 MG TAB PO SCH (09:08)
[2020-09-20] MEDS: POLYETHYLENE (MIRALAX) 17 GM PACK PO SCH (09:08)
[2020-09-20] MEDS: TAPENTADOL HCL ER 50 MG TABCR PO SCH (09:10)
[2020-09-20] MEDS ORDERED: DESTROY THIS MEDICATION ONE ×2 (09:38→11:45)
--- NOTE | 2020-09-20 09:43 | Discharge Summary ---
Date of Service September 20, 2020 History of Present Illness As per admission H&P: Patient was hospitalized on the medical floor for pain complaints from 06/27- 07/06, again 07/26-08/29, seen in ED 08/30 then readmit 09/04-09/08/20. Records reviewed from last stay and was maintained on PO pain medication Nucynta. Has escalated in use of regular release and unclear in past if missing pills were truly OD on misuse. She was not very forthcoming in the ED about exactly what she took, pills plus extra hydroxyurea as a suicidal gesture, mainly as frustrated over chronic pain. She proceeded to have a seizure like event, received prn Ativan in the field; head CT was unremarkable and she has a previous history of PNES (non-epileptic seizures). She related to environmental conflict manager that she became irritated with mother while packing up her apartment. Mother didn't "seem to care" about her reported ingestion so she called a friend who activated EMS. She has been struggling to maintain her course work at [employer]. Patient was talking on phone and eating breakfast but became avoidant when liaison nurse transferred to unit. She is currently tearful, lying in bed with face partially covered refusing to make eye contact or answer questions rather than shoulder shrug. She did related that Buspar is not helpful and it doesn't seem she is taking medications consistently. Physical Exam Vital Signs (Past 24 Hours) Last Vital Signs Temp 36.7 C 09/20/20 06:30 Pulse 88 09/20/20 06:31 Resp 16 09/20/20 06:30 BP 107/75 09/20/20 06:31 Pulse Ox 98 09/16/20 09:30 See admission H&P and DOD summary. Principal Diagnosis major depressive disorder, recurrent, moderate Psychiatric Data See daily stay summary. In short, safety was maintained and the patient was cooperative with care. Medication changes included initiating trial of Zyprexa as prescribed outpatient and they tolerated this well. A family session was held with cousin who would be transporting her to [place] to meet up with mother and gather things prior to bus to [place] to stay with her boyfriend until she can move into her apartment on 10/07/20. Safety plan was completed prior to discharge but most important step was sorting through 30+ prescription bottles that accompanied patient to the hospital given her risk of OD. It is recommended that she not be on automatic refills with the pharmacy in future as she had several months supply of psych meds. Even for meds that were currently prescribed, example Zyprexa 5 mg, we only returned 30 day supply (example had 3 other almost full month supplies). Confirmed that patient's Nucynta prescriptions were available at [facility] pharmacy as had not yet picked up (this was the only medication not secured at pharmacy on admission). She exhibited no evidence of side effects of substance ingestion on unit. She admitted that she did not want to go to [place] with her mother and this was likely trigger for OD as otherwise she was future focussed re: visiting boyfriend in [place], moving in with a Croatian roommate later this month, etc. She remains at risk for SIB and suicidal gesture given hx and co-morbid borderline personality disorder but counter therapeutic to remain on inpatient unit for additional treatment and risks that can be mitigated were addressed. The evidence based treatment for borderline personality disorder is ongoing DBT. She declined referrals to other more specialized inpatient programs. Day of Discharge Assessment Today the patient voices readiness for discharge. They note improvement in mood and deny thoughts to harm self or others. Thoughts remain organized and they are improved from admission. There is no evidence of psychosis. They agree to take mediations as prescribed and keep follow-up appointments. They are stable for discharge to outpatient level of care. Transition of Care Transition Of Care Record: was reviewed with the patient Advance Directives Advance Directives Information Provided: Yes Advance Directives: No Mental Health Advance Directive: No Advance Directives on File: No Living Will: No Power of Beef Cattle Specialist: No Advance Directives Reason:: Declines as Mental Health Visit. Risk Factors Assessment Male: No : No Do You Have Access To A Gun?: No Health Problems: Yes Mental Health Diagnoses: Yes Previous Attempt: Yes Family History of Suicide: No Previous Psychiatric Hospitalization: Yes Protective Factors Assessment : No Responsible for Young Children: No Employed: No Total Time Total Time Spent: Greater Than 30 Minutes Total Time Includes: Examination of the patient, Discharge Planning and Medication Reconciliation Discharge Data Lab Results 09/16/20 09/16/20 09/16/20 00:07 00:07 00:07 WBC 6.31 RBC 2.79 L Hgb 10.4 L Hct 29.8 L MCV 106.8 H MCH 37.3 H MCHC 34.9 RDW Std Deviation 80.0 H RDW Coeff of Nando 20.7 H Plt Count 319 MPV 9.0 Immature Gran % (Auto) 0.2 Neut % (Auto) 36.6 Lymph % (Auto) 55.5 Wolfe % (Auto) 6.2 Eos % (Auto) 1.3 Baso % (Auto) 0.2 Neut # (Auto) 2.32 Lymph # (Auto) 3.50 H Wolfe # (Auto) 0.39 Eos # (Auto) 0.08 Baso # (Auto) 0.01 Immature Gran # (Auto) 0.01 Absolute Nucleated RBC 0.08 H Nucleated RBC % (auto) 1.3 Polychromasia 1+ Anisocytosis Present Sickle Cells Occasional Target Cells 1+ PT 10.5 INR 1.0 ABG pH ABG pCO2 ABG pO2 ABG HCO3 ABG O2 Saturation ABG Base Excess Daniel Test Oxygen Given Sodium 139 Potassium 3.5 Chloride 111 H Carbon Dioxide 25 Anion Gap 3.0 BUN 5 L Creatinine 0.56 L Est Cr Clr Drug Dosing 164.2 Est GFR ( Amer) > 150.0 Est GFR (Non-Af Amer) 132.4 BUN/Creatinine Ratio 9.5 L Glucose 96 Fasting Glucose Calcium 9.2 Magnesium 2.1 Total Bilirubin 1.2 H AST 20 ALT 25 Alkaline Phosphatase 74 Troponin I < 0.015 Total Protein 8.4 H Albumin 4.1 Globulin 4.3 H Albumin/Globulin Ratio 1.0 Triglycerides Cholesterol LDL Cholesterol, Calc VLDL Cholesterol, Calc HDL Cholesterol Cholesterol/HDL Ratio Lipase 187 HCG, Qual Urine Color Urine Appearance Urine pH Ur Specific [place] Urine Protein Urine Glucose (UA) Urine Ketones Urine Blood Urine Nitrite Urine Bilirubin Urine Urobilinogen Ur Leukocyte Esterase Urine WBC (Auto) Urine RBC (Auto) U Hyaline Cast (Auto) U Epithel Cells (Auto) Urine Bacteria (Auto) Salicylates Urine Opiates Screen Ur Methadone, Qual Acetaminophen Urine Barbiturates Ur Phencyclidine (PCP) U Amphetamin/Meth Scrn MDMA (Ecstasy) Screen U Benzodiazepines Scrn Ur Cocaine Metabolite U Marijuana (THC) Screen Ethyl Alcohol mg/dL COVID-19 Eval Order SARS-CoV-2, RNA, NAAT 09/16/20 09/16/20 09/16/20 00:07 00:07 00:20 WBC RBC Hgb Hct MCV MCH MCHC RDW Std Deviation RDW Coeff of Nando Plt Count MPV Immature Gran % (Auto) Neut % (Auto) Lymph % (Auto) Wolfe % (Auto) Eos % (Auto) Baso % (Auto) Neut # (Auto) Lymph # (Auto) Wolfe # (Auto) Eos # (Auto) Baso # (Auto) Immature Gran # (Auto) Absolute Nucleated RBC Nucleated RBC % (auto) Polychromasia Anisocytosis Sickle Cells Target Cells PT INR ABG pH ABG pCO2 ABG pO2 ABG HCO3 ABG O2 Saturation ABG Base Excess Daniel Test Oxygen Given Sodium Potassium Chloride Carbon Dioxide Anion Gap BUN Creatinine Est Cr Clr Drug Dosing Est GFR ( Amer) Est GFR (Non-Af Amer) BUN/Creatinine Ratio Glucose Fasting Glucose Calcium Magnesium Total Bilirubin AST ALT Alkaline Phosphatase Troponin I Total Protein Albumin Globulin Albumin/Globulin Ratio Triglycerides Cholesterol LDL Cholesterol, Calc VLDL Cholesterol, Calc HDL Cholesterol Cholesterol/HDL Ratio Lipase HCG, Qual Negative Urine Color Urine Appearance Urine pH Ur Specific [place] Urine Protein Urine Glucose (UA) Urine Ketones Urine Blood Urine Nitrite Urine Bilirubin Urine Urobilinogen Ur Leukocyte Esterase Urine WBC (Auto) Urine RBC (Auto) U Hyaline Cast (Auto) U Epithel Cells (Auto) Urine Bacteria (Auto) Salicylates < 1.7 L Urine Opiates Screen Ur Methadone, Qual Acetaminophen < 2 L Urine Barbiturates Ur Phencyclidine (PCP) U Amphetamin/Meth Scrn MDMA (Ecstasy) Screen U Benzodiazepines Scrn Ur Cocaine Metabolite U Marijuana (THC) Screen Ethyl Alcohol mg/dL < 3.0 COVID-19 Eval Order SARS-CoV-2, RNA, NAAT 09/16/20 09/16/20 09/16/20 00:20 05:35 05:35 WBC RBC Hgb Hct MCV MCH MCHC RDW Std Deviation RDW Coeff of Nando Plt Count MPV Immature Gran % (Auto) Neut % (Auto) Lymph % (Auto) Wolfe % (Auto) Eos % (Auto) Baso % (Auto) Neut # (Auto) Lymph # (Auto) Wolfe # (Auto) Eos # (Auto) Baso # (Auto) Immature Gran # (Auto) Absolute Nucleated RBC Nucleated RBC % (auto) Polychromasia Anisocytosis Sickle Cells Target Cells PT INR ABG pH 7.39 ABG pCO2 40 ABG pO2 78 L ABG HCO3 23 ABG O2 Saturation 95.3 H ABG Base Excess -1.5 Daniel Test Pos Oxygen Given RA Sodium Potassium Chloride Carbon Dioxide Anion Gap BUN Creatinine Est Cr Clr Drug Dosing Est GFR ( Amer) Est GFR (Non-Af Amer) BUN/Creatinine Ratio Glucose Fasting Glucose Calcium Magnesium Total Bilirubin AST ALT Alkaline Phosphatase Troponin I Total Protein Albumin Globulin Albumin/Globulin Ratio Triglycerides Cholesterol LDL Cholesterol, Calc VLDL Cholesterol, Calc HDL Cholesterol Cholesterol/HDL Ratio Lipase HCG, Qual Urine Color Urine Appearance Urine pH Ur Specific [place] Urine Protein Urine Glucose (UA) Urine Ketones Urine Blood Urine Nitrite Urine Bilirubin Urine Urobilinogen Ur Leukocyte Esterase Urine WBC (Auto) Urine RBC (Auto) U Hyaline Cast (Auto) U Epithel Cells (Auto) Urine Bacteria (Auto) Salicylates Urine Opiates Screen Ur Methadone, Qual Acetaminophen Urine Barbiturates Ur Phencyclidine (PCP) U Amphetamin/Meth Scrn MDMA (Ecstasy) Screen U Benzodiazepines Scrn Ur Cocaine Metabolite U Marijuana (THC) Screen Ethyl Alcohol mg/dL COVID-19 Eval Order Covid19 IDNow atMKSC SARS-CoV-2, RNA, NAAT NEGATIVE 09/16/20 09/16/20 09/18/20 05:48 05:48 08:01 WBC RBC Hgb Hct MCV MCH MCHC RDW Std Deviation RDW Coeff of Nando Plt Count MPV Immature Gran % (Auto) Neut % (Auto) Lymph % (Auto) Wolfe % (Auto) Eos % (Auto) Baso % (Auto) Neut # (Auto) Lymph # (Auto) Wolfe # (Auto) Eos # (Auto) Baso # (Auto) Immature Gran # (Auto) Absolute Nucleated RBC Nucleated RBC % (auto) Polychromasia Anisocytosis Sickle Cells Target Cells PT INR ABG pH ABG pCO2 ABG pO2 ABG HCO3 ABG O2 Saturation ABG Base Excess Daniel Test Oxygen Given Sodium Potassium Chloride Carbon Dioxide Anion Gap BUN Creatinine Est Cr Clr Drug Dosing Est GFR ( Amer) Est GFR (Non-Af Amer) BUN/Creatinine Ratio Glucose Fasting Glucose 99 Calcium Magnesium Total Bilirubin AST ALT Alkaline Phosphatase Troponin I Total Protein Albumin Globulin Albumin/Globulin Ratio Triglycerides 47 Cholesterol 137 LDL Cholesterol, Calc 82 VLDL Cholesterol, Calc 9 HDL Cholesterol 46 Cholesterol/HDL Ratio 3 Lipase HCG, Qual Urine Color Yellow Urine Appearance Clear Urine pH 6.5 Ur Specific [place] 1.013 Urine Protein Negative Urine Glucose (UA) Negative Urine Ketones 1+ H Urine Blood Negative Urine Nitrite Negative Urine Bilirubin Negative Urine Urobilinogen Negative Ur Leukocyte Esterase Trace H Urine WBC (Auto) 1-5 Urine RBC (Auto) 0-4 U Hyaline Cast (Auto) 1-5 U Epithel Cells (Auto) 10-20 H Urine Bacteria (Auto) Negative Salicylates Urine Opiates Screen Neg Ur Methadone, Qual Neg Acetaminophen Urine Barbiturates Neg Ur Phencyclidine (PCP) Neg U Amphetamin/Meth Scrn Neg MDMA (Ecstasy) Screen Neg U Benzodiazepines Scrn Neg Ur Cocaine Metabolite Neg U Marijuana (THC) Screen Neg Ethyl Alcohol mg/dL COVID-19 Eval Order SARS-CoV-2, RNA, NAAT Hospital Course (1) Depression: 09/18/20--continue current meds and safety planning, complex family situation and logistics of getting to her and personal items to [place] for 3 weeks. 09/17/20--patient states never started Wellbutrin as prescribed by Dr. Valverde and prefers to continue her hospital dose of Cymbalta. Reviewed indication for atypical as a mood stabilizer in BPD and to target impulsivity given active depression and she is agreeable to begin Zyprexa 5 mg hs trial here as prescribed by Dr. Valverde. Risks/benefits/alternatives were reviewed re: antipsychotics for mood and/or psychosis. Discussion included but was not limited to metabolic side effects, risks of TD and suicidal thoughts. There were no abnormal motor movements at baseline. Fasting glucose and lipid panel ordered for baseline monitoring. 09/16/20 The patient was admitted to the [facility] ([facility] mental health unit) on q15 min checks (behavioral with suicide precautions) for safety. The patient will participate in group, recreational, and milieu therapies and will be offered additional individual and family sessions as clinically appropriate. Continue Cymbalta as likely some help with myalgias, hold Buspar as unclear if took extra and ineffective by report. d/c Doxepin given risk of TCAs in OD. Consider mood stabilizing agent. (2) Borderline personality disorder: 09/19/20--minimal splitting but ongoing family conflict, therapist through [facility] is already initiating referrals to more DBT specific therapy. 09/16/20--consistency of treatment team to limit splitting, monitor SIB, consider residential DBT program. (3) Sickle cell anemia: 09/16/20--resume outpatient regimen, consult [facility] hospitalists as needed, f/u with Drs. German and Leo as outpatient (4) Chronic pain: 09/17/20--declining inpatient residential program (like [facility] pain management program) 09/16/20--Nucynta both standing and prn, consult [facility] hospitalists as needed (5) Psychogenic nonepileptic seizure: (5) Psychogenic nonepileptic seizure: 09/16/20--seizure precautions as safety measure to limit unintentional injury Mental Health & Subst Abuse Tx Psychiatrist Name of Psychiatrist: Dr. Valverde Psychiatrist's Date of Appointment with Psychiatrist: 09/27/20 Time of Appointment with Psychiatrist: 12pm Psychiatric Appointment Comment: telehealth Therapist Name of Therapist: [facility] Therapist's Date of Therapist Appointment: 10/09/20 Time of Therapist Appointment: 10am Therapy Appointment Comment: [address], [place], [place] Conflicts Analyst Name of Conflicts Analyst: N/A Post Discharge Appointments Primary Care Physician Name Of Family Doctor: [facility] German Primary Care Date of Appointment with PCP: 10/10/20 Time of Appointment with PCP: 12:50pm Provider Appointment Comment: [address], [place], [place] Discharge Plan Discharge Items Patient Disposition: Home - Self-Care Reason For Visit: DEPRESSION W/SUICIDAL IDEATION Discharge Diagnosis: major depressive disorder Condition on Discharge: Good Activity: Resume your previous activity Non-emergency contact: Primary Care Provider, Psychiatrist and Therapist Call non-emergency contact if: you have any medication questions and your symptoms worsen Follow-up/Referrals: Zamzam Bailey MD [Primary Care Provider] - Diet: Regular Addtl Attending Provider Instructions: SPECIAL CARE INSTRUCTIONS: 1. Follow through with your scheduled aftercare appointments. If unable to keep an appointment, please call to reschedule. 2. Take your medication only as prescribed. Medication should not be changed or stopped without the approval of your doctor. In the event of worsening symptoms or concerns about side effects, contact your doctor immediately. 3. Utilize new healthy coping skills, anger management skills, and stress management skills learned during your hospitalization. Journal feelings and process them with a support person. Identify stressors or situations that may result in relapse, deterioration or inappropriate behaviors and develop a plan to deal with those issues. 4. If your coping skills are ineffective and you are in crisis, contact your outpatient providers for direction. If unable to reach your providers, please call the [facility] CRISIS LINE AT , go to the [facility] walk-in center at [address], [place], or go to the closest Emergency Room. 5. Avoid alcohol and un-prescribed drugs. 6. You have been provided with the Mental Health Advance Directives Pamphlet for your review. AFTERCARE APPOINTMENTS: * Please call your insurance company prior to your scheduled appointment to confirm your aftercare providers are covered. Take your insurance information to your appointments. WHO TO CALL AND WHEN: Medical Emergencies: For questions or emergencies related to your hospital stay, please contact the Inpatient Behavioral Health Unit at [phone]. A access clinician is on-call 09/09 for the Behavioral Health Unit for emergencies At any time you feel your situation is an emergency, you may also call 911 immediately. Pending Studies at Discharge: No Stand-Alone Forms: [facility], Smoking Cessation Medications and DC Order Prescriptions: New duloxetine 60 mg Capsule,Delayed Release(Dr/Ec) 60 mg PO HS Qty: 1 RF: 0 famotidine 20 mg Tablet 20 mg PO BID PRN (Reason: Acid Reflux) Qty: 1 RF: 0 Continued folic acid 1 mg Tablet 2 mg PO HS RF: 0 hydroxyurea 500 mg Capsule 1,000 mg PO BID 30 Days Qty: 120 RF: 1 polyethylene glycol 3350 [Miralax] 17 gram Powder In Packet 17 g PO BID Qty: 100 RF: 0 sennosides [Senokot] 8.6 mg Tablet 17.2 mg PO QAM Qty: 60 RF: 0 diclofenac sodium 1 % Gel 4 g TOPICAL QID RF: 0 Nucynta ER 150 mg tablet extended release 12 hr 150 mg PO BID Qty: 14 RF: 0 Narcan 4 mg/actuation spray,non-aerosol 1 spray intranasal .Q3 MINUTES PRN (Reason: OVERSEDATION) RF: 0 ondansetron 4 mg Tablet,Disintegrating 4 mg PO Q4H Qty: 60 RF: 0 pantoprazole 40 mg Tablet,Delayed Release (Dr/Ec) 40 mg PO BID Qty: 60 RF: 0 sucralfate 1 gram tablet 1 g PO QID 30 Days Qty: 120 RF: 1 Nucynta 50 mg Tablet 50 mg PO BID RF: 0 olanzapine 5 mg Tablet 5 mg PO DAILY RF: 0 Discontinued bupropion HCl 100 mg Tablet Sustained-Release 12 Hr 100 mg PO DAILY RF: 0 duloxetine 20 mg Capsule,Delayed Release(Dr/Ec) 20 mg PO DAILY RF: 0 Discharge Orders: Discharge Order (Routine); Ordered 09/20/20 Ordered By: Ailyn Mcgill Admission Data Admit Date/Time: 09/16/20 09:33 Attending Provider: Ailyn Mcgill Admit Provider: Ailyn Mcgill Primary Care Provider: Zamzam Bailey Other Interventions: Discharge Summary Assessment (RN) Last Done: 09/20/20 11:16 PSY Interdisciplinary Discharge Planning Last Done: 09/20/20 11:14 Coding Level of Care Code 30307 D/C day mgmt > 30 min Diagnoses Depression F33.2 Active/Remission status: currently active Depression Type: major depressive disorder Major depression episode severity: severe Major depression recurrence: recurrent Psychotic features: without psychotic features Borderline personality disorder F60.3 Sickle cell anemia D57.00 Sickle-cell associated disorders: with unspecified crisis Chronic pain G89.29 Psychogenic nonepileptic seizure F44.5
== END 2020-09-20 13:20 | disposition home or self-care (01) | DRG 885 ==
LOC: ED 23:27 → 3S 09-16 09:33

== ENCOUNTER 2020-11-26 10:58 | Inpatient (IN) ==
[2020-11-26] MEDS ORDERED: ONDANSETRON INJ 2 MG/ML 2 ML VIAL IV STA (11:54)
[2020-11-26] MEDS ORDERED: SODIUM CHLORIDE 0.9% 1000ML 2,000 ML IV ONE (11:54)
[2020-11-26] MEDS ORDERED: KETOROLAC TROMETHAMINE 15 MG/ML VIAL IV STA (11:54)
[2020-11-26] MEDS ORDERED: MoRPHine SULFATE 10 MG/ML CARP/VIAL IV STA ×2 (11:54→14:25)
[2020-11-26] MEDS ORDERED: ACETAMINOPHEN 1,000 MG/100 ML VIAL IV STA (11:54)
[2020-11-26 12:16] LABS: Basophils # (auto) 0.02 K/uL (0-0.2); Basophils % (auto) 0.2 %; Eosinophils # (auto) 0.09 K/uL (0-0.5); Eosinophils % (auto) 0.9 %; Hematocrit (blood only) 29.2 % (37-47); Hemoglobin 10.4 g/dL (12.0-16.0); Immature Granulocytes # (auto) 0.04 K/uL (0.00-0.02); Immature Granulocytes % (auto) 0.4 %; Immature Retic Fraction 40.6 % (3.0-15.9); Lymphocytes # (auto) 1.93 K/uL (1.2-3.4); Lymphocytes % (auto) 20.1 %; Mean Corpuscular Hemoglobin 36.2 pg (25-34); Mean Corpuscular Hgb Conc 35.6 g/dL (32-36); Mean Corpuscular Volume 101.7 fL (80-100); Mean Platelet Volume 9.7 fL (7.4-10.4); Monocytes # (auto) 0.86 K/uL (0.11-0.59); Monocytes % (auto) 8.9 %; Neutrophils # (auto) 6.67 K/uL (1.4-6.5); Neutrophils % (auto) 69.5 %; Nucleated RBC # (auto) 0.07 K/uL (0-0); Nucleated RBC % (auto) 0.8 %; Platelet Count 358 K/uL (130-400); RDW Coefficient of Variation 18.3 % (11.5-14.5); RDW Standard Deviation 67.4 fL (36.4-46.3); Red Blood Count 2.87 M/uL (4.2-5.4); Reticulated Hemoglobin 39.2 pg (28.2-36.6); Reticulocyte % 13.6 % (0.5-2.0); Reticulocytes # 0.39 10^6/uL (0.02-0.10); White Blood Count 9.61 K/uL (4.8-10.8)
--- NOTE | 2020-11-26 12:28 | XRay Report ---
SINGLE VIEW CHEST CLINICAL HISTORY: Atypical chest pain. FINDINGS: An AP, portable, upright chest radiograph is compared to study dated 10/30/2020 and correlat ed with chest CT dated 06/30/2020. The cardiac silhouette appears enlarged. The lungs and pleural spac es are clear. No pneumothorax is seen. The bony thorax is grossly intact. IMPRESSION: Cardiac enlargement with no acute cardiopulmonary abnormality identified. ACT 112: Negative or not required by law. Electronically signed by: Richard Mcmahon M.D. 11/26/2020 12:26 PM
[2020-11-26 12:29] LABS: Alanine Aminotransferase 17 U/L (12-78); Albumin Level 4.1 gm/dl (3.4-5.0); Aspartate Aminotransferase 27 U/L (15-37); BUN Creatinine Ratio 5.9 (10-20); Bilirubin Direct 0.5 mg/dl (0-0.2); Blood Urea Nitrogen 3 mg/dl (7-18); Calcium 9.4 mg/dl (8.5-10.1); Carbon Dioxide 28 mmol/L (21-32); Chloride 106 mmol/L (98-107); Creatinine Clr Calc Pharmacy 185.9 ml/min; Est GFR (African American) > 150.0 ml/min; Est GFR (Non-African American) 138.3 ml/min; Glucose 83 mg/dl (70-99); Lipase 138 U/L (73-393); Magnesium 1.8 mg/dl (1.8-2.4); Potassium 3.5 mmol/L (3.5-5.1); Sodium 138 mmol/L (136-145)
[2020-11-26 12:36] LABS: Alkaline Phosphatase 73 U/L (45-117); Bilirubin,Total 3.3 mg/dl (0.2-1); Phosphorus 3.5 mg/dl (2.5-4.9); Thyroid Stimulating Hormone 0.876 uIu/ml (0.300-4.500); Total Protein 8.1 gm/dl (6.4-8.2); Troponin I < 0.015 ng/ml (0-0.045)
--- NOTE | 2020-11-26 14:33 | Emergency Department Note ---
Impression & Plan Sickle cell anemia, Intractable pain, Nausea ED Provider Note NAME: ADÁN PEOPLES AGE: 20 SEX: F ARRIVES VIA: Walk-In INFORMANT: Patient, ED PROVIDER(S): Robert Mobley MD CHIEF COMPLAINT: Sickle cell crisis. PLAN: Disposition: Admit MEDICAL DECISION MAKING: The patient is a pleasant 20-year-old woman with a past medical history of sickle cell anemia, borderline personality disorder, history of psychogenic seizures who presents to the emergency department for evaluation of generalized body aches and pain that she reports is consistent with her sickle cell crisis. She was last in the emergency department in mid October for a crisis but she reports that this is much worse and feels she likely needs admitted for this episode. She denies any fevers. She reports some nausea but denies vomiting, diarrhea or urinary symptoms. She is vaccinated for COVID-19 numerous months ago. She denies any known COVID-19 exposures. On arrival patient is uncomfortable but no acute distress, afebrile with stable vital signs. She appears clinically dry. She reports pain with palpation of her extremities chest and abdomen. No joint edema. EKG without overt acute ischemia. Chest x-ray negative for acute cardiopulmonary process. WBC and platelets within normal limits. H/H 10.4/29.2 similar to prior range of values. Reticulocyte percent is elevated at 13.6% with count of 0.39 which is high for the patient compared to prior. Chemistry without metabolic acidosis. Electrolytes and LFTs unremarkable. Total bilirubin 3.3 and direct direct bilirubin 0.5 approximate to prior range of values. LFTs otherwise unremar kable. Troponin negative/undetectable. Lipase is not elevated. TSH within normal limits. Procalcitonin is not significantly elevated at 0.12. COVID-19 PCR was negative. Upon re-evaluation the patient did feel some improvement following IVF hydration, Zofran, apap, toradol, and morphine. However still with crisis pain requirement repeat morphine. She agrees with plan for admission for further m anagement. Case was discussed with JOSEPH Metcalf with Dr. Pandya, JOSEPH hospitalist, who will evaluate the patient for admission. Triage Nursing notes reviewed and agree them. Prior medical records reviewed Vital Signs: reviewed and remarkable for no significant abnormalities Differential diagnosis: Cardiac ischemia, aortic dissection, pulmonary embolism, pneumothorax, pneumonia, pericarditis, myocarditis, esophageal rupture, GERD, cholecystitis, pancreatitis, musculoskeletal, as well as other pathologies. ER treatment provided: See below. Diagnostics interpreted by me: ECG: Normal sinus rhythm, 75 bpm, no ectopy, T wave abnormality, no overt ST elevation or depression, QTC 433, QRS 78. Cardiac Monitoring: An order for continuous cardiac monitoring was placed and demonstrated Normal sinus rhythm, 75 bpm, no ectopy. Laboratory studies: See below Imaging studies: See below Consultation(s): [facility]ll[facility] MEHTA with Dr. Pandya, [facility] hospitalist, who will evaluate the patient for admission. HPI: The patient is a pleasant 20-year-old woman with a past medical history of sickle cell anemia, borderline personality disorder, history of psychogenic seizures who presents to the emergency department for evaluation of generalized body aches and pain that she reports is consistent with her sickle cell crisis. She was last in the emergency department in mid October for a crisis but she reports that this is much worse and feels she likely needs admitted for this episode. She denies any fevers. She reports some nausea but denies vomiting, diarrhea or urinary symptoms. She is vaccinated for COVID-19 numerous months ago. She denies any known COVID-19 exposures. ROS: See above HPI for pertinent positives & negatives. A total of 10 systems reviewed and were otherwise negative. PAST MEDICAL HISTORY:See Below PAST SURGICAL HISTORY:See Below FAMILY HISTORY:See Below SOCIAL HISTORY:See Below HOME MEDICATIONS:See Below ALLERGIES:See Below VITALS:See Below PHYSICAL EXAMINATION: GENERAL: Awake, alert, uncomfortable-appearing, in no distress HENT: Normocephalic, atraumatic. Oropharynx with dry mucous membranes and otherwise unremarkable. EYES: Normal conjunctiva. Sclera non-icteric. NECK: Supple. No nuchal rigidity. FROM. No JVD. RESPIRATORY: Clear to auscultation. CARDIAC: Regular rate, normal rhythm. Extremities warm and well perfused. Pulses equal. ABDOMEN: Soft, non-distended. No tenderness to palpation. No rebound or guarding. No masses. RECTAL: Deferred. MUSCULOSKELETAL: Chest examination reveals no tenderness. The back is s ymmetrical on inspection without obvious abnormality. There is no CVA tenderness to palpation. Reports pain with palpation of her extremities chest and abdomen. No joint edema. LOWER EXTREMITIES: Calves are equal size bilaterally and non-tender. No edema. No discoloration. NEURO: Normal sensorium. No sensory or motor deficits noted. SKIN: No rash or jaundice noted. Robert Mobley MD Past Med/Surg History Medical History Borderline personality disorder Chronic pain Depression Murmur, cardiac Nausea Overdose Pneumonia Pseudoseizures Seizure-like activity Sickle cell anemia Sickle cell crisis Suicidal ideation Suicide gesture Surgical History No pertinent past surgical history Family History Mother Hypertension Father Ulcer Other Family history non-contributory Social History Smoking Status: Never smoker Tobacco Type: E-cigarettes / Vaping Second Hand Exposure: Yes; Hx Alcohol Use: Yes Alcohol type: other Hx Substance Use: No Preferred Language: Luxembourgish Communication Ability: Effective 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: No Beliefs That Will Affect Care: None marital status: Single Current Living Situation: Other Current Living Situation Comment: Pt states she lives with roommates 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 current occupation: [employer] major Other Information That Helps Us Care for You: No Feels Safe at Home: Yes Safety Concerns: Feels Safe At This Time Assistive Devices: Glasses Allergies Allergies Allergy/AdvReac Type Severity Reaction Status Date / Time No Known Allergies Allergy Verified 11/26/20 12:27 Home Meds Home Medications Medication Instructions Recorded Confirmed folic acid 1 mg tablet 2 mg PO HS 11/18/19 11/26/20 diclofenac sodium 1 % topical gel 4 g TOPICAL QID 07/26/20 11/26/20 naloxone 4 mg/actuation nasal 1 spray INTRANASAL .Q3 MINUTES PRN 09/04/20 11/26/20 spray (Narcan) olanzapine 5 mg tablet 5 mg PO HS 09/17/20 11/26/20 tapentadol 50 mg tablet (Nucynta) 50 mg PO BID 09/17/20 11/26/20 ondansetron 4 mg disintegrating 4 mg PO Q4H PRN 11/26/20 11/26/20 tablet polyethylene glycol 3350 17 gram 17 g PO BID PRN 11/26/20 11/26/20 oral powder packet (Miralax) Previous Rx's Medication Instructions Recorded hydroxyurea 500 mg capsule 1,000 mg PO BID 30 Days #120 cap 05/01/20 sennosides 8.6 mg tablet (Senokot) 17.2 mg PO QAM #60 tab 07/06/20 tapentadol 150 mg tablet,extended 150 mg PO BID #14 tab 08/29/20 release,12 hr (Nucynta ER) pantoprazole 40 mg tablet,delayed 40 mg PO BID #60 tab 09/08/20 release sucralfate 1 gram tablet 1 g PO QID 30 Days #120 tab 09/08/20 duloxetine 60 mg capsule,delayed 60 mg PO HS #1 cap 09/20/20 release famotidine 20 mg tablet 20 mg PO BID PRN #1 tab 09/20/20 Results & Data (ED) Vital Signs Vital Signs - 24 hr 11/26/20 11:15 11/26/20 11:52 11/26/20 12:19 Temperature 36.4 C L Temperature Source Oral Pulse Rate 68 Pulse Rate [Finger] 94 H Pulse Rhythm Regular Pulse Strength Normal Respiratory Rate 13 16 Respiratory Effort / Characteristics Non-Labored Spontaneous Non-Labored Respiratory Depth Normal Normal Respiratory Pattern Regular Blood Pressure 117/63 Blood Pressure [Right Arm] 116/62 Blood Pressure Mean 81 Blood Pressure Mean [Right Arm] 80 Blood Pressure Position Lying Pulse Oximetry 96 96 97 Oxygen Delivery Method Room Air Room Air Room Air Oxygen Flow Rate 0 Sepsis Recent Fever Within 48 Hours No Sepsis New/Unexplained Change in Mental Status N/A Sepsis Action Taken by Nursing No Action Required 11/26/20 15:04 Temperature Temperature Source Pulse Rate Pulse Rate [Finger] 68 Pulse Rhythm Pulse Strength Respiratory Rate 16 Respiratory Effort / Characteristics Respiratory Depth Respiratory Pattern Blood Pressure Blood Pressure [Right Arm] 115/66 Blood Pressure Mean Blood Pressure Mean [Right Arm] 82 Blood Pressure Position Pulse Oximetry 97 Oxygen Delivery Method Oxygen Flow Rate Sepsis Recent Fever Within 48 Hours Sepsis New/Unexplained Change in Mental Status Sepsis Action Taken by Nursing Laboratory Data Attestation: I reviewed the patient's lab results. Result diagrams: 11/26/20 11:51 11/26/20 11:51 Lab Results 11/26/20 11/26/20 11/26/20 Range/Units 11:51 11:51 11:51 WBC 9.61 (4.8-10.8) K/uL RBC 2.87 L (4.2-5.4) M/uL Hgb 10.4 L (12.0-16.0) g/dL Hct 29.2 L (37-47) % MCV 101.7 H (80-100) fL MCH 36.2 H (25-34) pg MCHC 35.6 (32-36) g/dL RDW Std Deviation 67.4 H (36.4-46.3) fL RDW Coeff of Nando 18.3 H (11.5-14.5) % Plt Count 358 (130-400) K/uL MPV 9.7 (7.4-10.4) fL Immature Gran % (Auto) 0.4 % Neut % (Auto) 69.5 % Lymph % (Auto) 20.1 % Davie % (Auto) 8.9 % Eos % (Auto) 0.9 % Baso % (Auto) 0.2 % Reticulocyte % (Auto) 13.6 H (0.5-2.0) % Neut # (Auto) 6.67 H (1.4-6.5) K/uL Lymph # (Auto) 1.93 (1.2-3.4) K/uL Davie # (Auto) 0.86 H (0.11-0.59) K/uL Eos # (Auto) 0.09 (0-0.5) K/uL Baso # (Auto) 0.02 (0-0.2) K/uL Reticulocyte # 0.39 H (0.02-0.10) 10^6/uL Immature Gran # (Auto) 0.04 H (0.00-0.02) K/uL Absolute Nucleated RBC 0.07 H (0-0) K/uL Nucleated RBC % (auto) 0.8 % Immature Retic Fraction 40.6 H (3.0-15.9) % Retic Hgb Content 39.2 H (28.2-36.6) pg Sodium 138 (136-145) mmol/L Potassium 3.5 (3.5-5.1) mmol/L Chloride 106 (98-107) mmol/L Carbon Dioxide 28 (21-32) mmol/L Anion Gap 4.0 (3-11) BUN 3 L (7-18) mg/dl Creatinine 0.49 L (0.6-1.2) mg/dl Est Cr Clr Drug Dosing 185.9 ml/min Est GFR ( Amer) > 150.0 ml/min Est GFR (Non-Af Amer) 138.3 ml/min BUN/Creatinine Ratio 5.9 L (10-20) Glucose 83 (70-99) mg/dl Lactate (0.4-2.0) mmol/L Calcium 9.4 (8.5-10.1) mg/dl Phosphorus 3.5 (2.5-4.9) mg/dl Magnesium 1.8 (1.8-2.4) mg/dl Total Bilirubin 3.3 H (0.2-1) mg/dl Direct Bilirubin 0.5 H (0-0.2) mg/dl AST 27 (15-37) U/L ALT 17 (12-78) U/L Alkaline Phosphatase 73 (45-117) U/L Troponin I < 0.015 (0-0.045) ng/ml Total Protein 8.1 (6.4-8.2) gm/dl Albumin 4.1 (3.4-5.0) gm/dl Globulin 4.0 (2.5-4.0) gm/dl Albumin/Globulin Ratio 1.0 (0.9-2) Lipase 138 (73-393) U/L Procalcitonin 0.12 (0-0.5) ng/ml TSH 0.876 (0.300-4.500) uIu/ml COVID-19 Eval Order SARS-CoV-2 (PCR) (Negative) 11/26/20 11/26/20 11/26/20 Range/Units 12:25 12:25 14:09 WBC (4.8-10.8) K/uL RBC (4.2-5.4) M/uL Hgb (12.0-16.0) g/dL Hct (37-47) % MCV (80-100) fL MCH (25-34) pg MCHC (32-36) g/dL RDW Std Deviation (36.4-46.3) fL RDW Coeff of Nando (11.5-14.5) % Plt Count (130-400) K/uL MPV (7.4-10.4) fL Immature Gran % (Auto) % Neut % (Auto) % Lymph % (Auto) % Davie % (Auto) % Eos % (Auto) % Baso % (Auto) % Reticulocyte % (Auto) (0.5-2.0) % Neut # (Auto) (1.4-6.5) K/uL Lymph # (Auto) (1.2-3.4) K/uL Davie # (Auto) (0.11-0.59) K/uL Eos # (Auto) (0-0.5) K/uL Baso # (Auto) (0-0.2) K/uL Reticulocyte # (0.02-0.10) 10^6/uL Immature Gran # (Auto) (0.00-0.02) K/uL Absolute Nucleated RBC (0-0) K/uL Nucleated RBC % (auto) % Immature Retic Fraction (3.0-15.9) % Retic Hgb Content (28.2-36.6) pg Sodium (136-145) mmol/L Potassium (3.5-5.1) mmol/L Chloride (98-107) mmol/L Carbon Dioxide (21-32) mmol/L Anion Gap (3-11) BUN (7-18) mg/dl Creatinine (0.6-1.2) mg/dl Est Cr Clr Drug Dosing ml/min Est GFR ( Amer) ml/min Est GFR (Non-Af Amer) ml/min BUN/Creatinine Ratio (10-20) Glucose (70-99) mg/dl Lactate 0.4 (0.4-2.0) mmol/L Calcium (8.5-10.1) mg/dl Phosphorus (2.5-4.9) mg/dl Magnesium (1.8-2.4) mg/dl Total Bilirubin (0.2-1) mg/dl Direct Bilirubin (0-0.2) mg/dl AST (15-37) U/L ALT (12-78) U/L Alkaline Phosphatase (45-117) U/L Troponin I (0-0.045) ng/ml Total Protein (6.4-8.2) gm/dl Albumin (3.4-5.0) gm/dl Globulin (2.5-4.0) gm/dl Albumin/Globulin Ratio (0.9-2) Lipase (73-393) U/L Procalcitonin (0-0.5) ng/ml TSH (0.300-4.500) uIu/ml COVID-19 Eval Order Covid19 at [facility] SARS-CoV-2 (PCR) NEGATIVE (Negative) Administered Medications Diclofenac Sodium (Diclofenac Sod 1% Gel 100 Gm Tube) 4 gm EXT QID WALTER Stop: 12/26/20 17:51 Last Admin: 11/26/20 20:35 Dose: 4 gm Documented by: [id number] Duloxetine HCl (Duloxetine Hcl 60 Mg Cap) 60 mg PO HS WALTER Stop: 12/26/20 20:59 Last Admin: 11/26/20 20:31 Dose: 60 mg Documented by: [id number] Enoxaparin Sodium (Enoxaparin Inj 40 Mg/0.4 Ml Syr) 40 mg SQ Q24H WALTER Stop: 12/26/20 20:59 Last Admin: 11/26/20 20:30 Dose: Not Given Documented by: [id number] Famotidine (Famotidine 20 Mg Tab) 20 mg PO BID PRN PRN Reason: Acid Reflux Stop: 12/26/20 17:51 Last Admin: 11/26/20 20:32 Dose: 20 mg Documented by: [id number] Folic Acid (Folic Acid 1 Mg Tab) 2 mg PO HS WALTER Stop: 12/26/20 20:59 Last Admin: 11/26/20 20:33 Dose: 2 mg Documented by: [id number] Hydroxyurea (Hydroxyurea 500 Mg Cap) 1,000 mg PO BID WALTER Stop: 12/26/20 20:59 Last Admin: 11/26/20 20:35 Dose: 1,000 mg Documented by: [id number] Cosigned by: [id number] Lactated Ringer's (Lr) 1,000 mls @ 125 mls/hr IV .Q8H WALTER Stop: 12/26/20 14:44 Last Admin: 11/26/20 18:47 Dose: 125 mls/hr Documented by: [id number] Morphine Sulfate (Morphine Sulfate 4 Mg/Ml 1 Ml Carp\Vial) 4 mg IV Q4 PRN PRN Reason: severe breakthrough pain Last Admin: 11/26/20 20:27 Dose: 4 mg Documented by: [id number] Olanzapine (Olanzapine 5 Mg Tablet) 5 mg PO HS WALTER Stop: 12/26/20 20:59 Last Admin: 11/26/20 20:33 Dose: 5 mg Documented by: [id number] Pantoprazole Sodium (Pantoprazole 40 Mg Tab) 40 mg PO BID WALTER Stop: 12/26/20 20:59 Last Admin: 11/26/20 20:34 Dose: 40 mg Documented by: [id number] Sucralfate (Sucralfate 1 Gm Tab) 1 gm PO QID WALTER Stop: 12/26/20 17:51 Last Admin: 11/26/20 20:35 Dose: 1 gm Documented by: [id number] Tapentadol (Tapentadol Hcl Er 50 Mg Tabcr) 100 mg PO BID WALTER Stop: 12/10/20 20:59 Last Admin: 11/26/20 20:43 Dose: 100 mg Documented by: [id number] Discontinued Medications Sodium Chloride (Nss 1000ml) 2,000 mls @ 999 mls/hr IV .Q2H1M ONE Stop: 11/26/20 13:54 Last Infusion: 11/26/20 14:44 Dose: 0 mls/hr Documented by: [id number] Admin: 11/26/20 12:44 Dose: 999 mls/hr Documented by: [id number] Acetaminophen (Ofirmev) 1,000 mg in 100 mls @ 400 mls/hr IV NOW STA Stop: 11/26/20 12:08 Last Infusion: 11/26/20 13:00 Dose: 0 mls/hr Documented by: [id number] Admin: 11/26/20 12:44 Dose: 400 mls/hr Documented by: [id number] Parenteral Electrolytes (Normosol-R) 1,000 mls @ 125 mls/hr IV .Q8H WALTER Stop: 12/26/20 15:14 Last Admin: 11/26/20 20:18 Dose: Not Given Documented by: [id number] Ketorolac Tromethamine (Ketorolac Tromethamine 15 Mg/Ml Vial) 15 mg IV NOW STA Stop: 11/26/20 11:55 Last Admin: 11/26/20 12:44 Dose: 15 mg Documented by: [id number] Morphine Sulfate (Morphine Sulfate 10 Mg/Ml Carp/Vial) 8 mg IV NOW STA Stop: 11/26/20 11:55 Last Admin: 11/26/20 12:44 Dose: 8 mg Documented by: [id number] Morphine Sulfate (Morphine Sulfate 10 Mg/Ml Carp/Vial) 6 mg IV NOW STA Stop: 11/26/20 14:26 Last Admin: 11/26/20 15:05 Dose: 6 mg Documented by: [id number] Ondansetron HCl (Ondansetron Inj 2 Mg/Ml 2 Ml Vial) 4 mg IV NOW STA Stop: 11/26/20 11:55 Last Admin: 11/26/20 12:44 Dose: 4 mg Documented by: [id number] Imaging Data Radiologist's Impression: Chest X-Ray 11/26/20 11:56 SINGLE VIEW CHEST CLINICAL HISTORY: Atypical chest pain. FINDINGS: An AP, portable, upright chest radiograph is compared to study dated 10/30/2020 and correlated with chest CT dated 06/30/2020. The cardiac silhouette appears enlarged. The lungs and pleural spaces are clear. No pneumothorax is seen. The bony thorax is grossly intact. IMPRESSION: Cardiac enlargement with no acute cardiopulmonary abnormality identified. ACT 112: Negative or not required by law. Electronically signed by: Richard Mcmahon M.D. 11/26/2020 12:26 PM Discharge Plan Visit Data Chief Complaint: Chest Pain Stated Complaint: BODY PAIN CHEST PAIN ED Provider: Robert Mobley Discharge Problem: Sickle cell anemia, Intractable pain, Nausea Patient Disposition: Admitted As Inpatient Discharge Instructions Interventions: ED Discharge Assessment Last Done: 11/26/20 17:38 Discharge Problem: Sickle cell anemia Qualifiers: Sickle-cell associated disorders: with unspecified crisis Qualified Code(s): D57.00 - Hb-SS disease with crisis, unspecified
[2020-11-26] MEDS ORDERED: NORMOSOL-R 1,000 ML IV SCH (15:15)
--- NOTE | 2020-11-26 15:26 | History & Physical Report ---
Date of Service November 26, 2020 Assessment & Plan (1) Sickle cell crisis: Plan: Elevated reticulocyte count, pain lower back -hgb stable to improved at 10.4 - CXR clear not on oxygen therapy - Continue with IVF-LR 125ml/hour - continue pain control with- diclofenac gel Nucynta IR/Nucynta ER/Tylenol- consider NSAID and Opiods (hydromorphone 1-2mg) if needed - Follow HGB/HCT/Retic panel - Continue Hydroxyurea 1000mg PO BID- can increase if needed -afebrile, follow BCxs (2) Depression: Plan: Continue duloxetine and olanzipine (3) Borderline personality disorder: Plan: As above (4) GERD (gastroesophageal reflux disease): Plan: continue Protonix 40mg PO daily (5) Psychogenic nonepileptic seizure: Plan: Usually occurs with stressful events - maintain safety limits (6) Opioid-induced hyperalgesia: Plan: As above- was seen by pain services in July (7) Hyperbilirubinemia: Plan: Elevated TBili at 3.3, mostly all indirect other LFTs normal, plts normal Afebrile CT abd/pel 3 weeks ago normal and RUQ US in 07/2020 with a few small gallstones seen has chronic elevation of TBili but not as high as this-perhaps some component of Gilbert's? Does not seem concerning for hepatic sequestration at this time as hgb stable -hydrate overnight follow LFTs in the AM History of Present Illness Primary Care Provider: Zamzam Bailey MD 20 YOF with past medical history of: Sickle cell, chronic pain, Sleep disturbance, GERD, Anxiety, pseudoseizures, Depression, Borderline personality disorder(10/07). Patient comes to the hospital today for complaints of increa sing pain associated with her sickle cell disease. The patient endorses that her pain has gotten worse over the past 3-5 days and she had tried to "increase her pain medication at home to not have to come in." She does not endorse any fevers, chills, or feeling ill recently. She does endorse decrease PO fluid and food intake over the past 2 days secondary to pain and her school schedule. In the EMD the patient had routine labs performed to include retic panel and routine CXR. She was given IV morphine 14mg total for her pain and 1L crystalloid therapy as well as dose of Toradol in the EMD. Her labs revealed HGB level of 10.4 MCV 101.7 RDW 67.4 and retic of 0.39 with a retic hgb content of 39.2. Due to her pain and increase in her reticulocyte count the hospitalist service was consulted for admission. Patient will be admitted for sickle crisis, will continue IVF resuscitation and continue her pain regimen with opioids if needed. Patient has been followed with Heme/onc for her sickle cell and her last transfusion was in August. She is also awaiting her appointment with sickle cell center ([place]) around December 12. ASW SPECIALIST reviewed 30 day supply for her Nucynta was October 20 for 30 day supply of both the ER 150mg tabs bid and the 50mg IR tabs bid. There is a UA pending for collection on admission. Patient has received her COVID vaccine and her COVID test on admission is: NEGATIVE Allergies Allergy/AdvReac Type Severity Reaction Status Date / Time No Known Allergies Allergy Verified 11/26/20 12:27 Home Medications Medication Instructions Recorded Confirmed Type folic acid 1 mg tablet 2 mg PO HS 11/18/19 11/26/20 History hydroxyurea 500 mg capsule 1,000 mg PO BID 30 Days #120 cap 05/01/20 11/26/20 Rx sennosides 8.6 mg tablet (Senokot) 17.2 mg PO QAM #60 tab 07/06/20 11/26/20 Rx diclofenac sodium 1 % topical gel 4 g TOPICAL QID 07/26/20 11/26/20 History tapentadol 150 mg tablet,extended 150 mg PO BID #14 tab 08/29/20 11/26/20 Rx release,12 hr (Nucynta ER) naloxone 4 mg/actuation nasal 1 spray INTRANASAL .Q3 MINUTES PRN 09/04/20 11/26/20 History spray (Narcan) pantoprazole 40 mg tablet,delayed 40 mg PO BID #60 tab 09/08/20 11/26/20 Rx release sucralfate 1 gram tablet 1 g PO QID 30 Days #120 tab 09/08/20 11/26/20 Rx olanzapine 5 mg tablet 5 mg PO HS 09/17/20 11/26/20 History tapentadol 50 mg tablet (Nucynta) 50 mg PO BID 09/17/20 11/26/20 History duloxetine 60 mg capsule,delayed 60 mg PO HS #1 cap 09/20/20 11/26/20 Rx release famotidine 20 mg tablet 20 mg PO BID PRN #1 tab 09/20/20 11/26/20 Rx ondansetron 4 mg disintegrating 4 mg PO Q4H PRN 11/26/20 11/26/20 History tablet polyethylene glycol 3350 17 gram 17 g PO BID PRN 11/26/20 11/26/20 History oral powder packet (Miralax) Past Med/Surg History Medical History Borderline personality disorder Chronic pain Depression Murmur, cardiac Nausea Overdose Pneumonia Pseudoseizures Seizure-like activity Sickle cell anemia Sickle cell crisis Suicidal ideation Suicide gesture Surgical History No pertinent past surgical history Family History Mother Hypertension Father Ulcer Other Family history non-contributory Social History Smoking Status: Never smoker Tobacco Type: E-cigarettes / Vaping Second Hand Exposure: Yes; Hx Alcohol Use: Yes Alcohol type: other Hx Substance Use: No Preferred Language: Emirati Communication Ability: Effective Geophysical Operator Required: No Beliefs That Will Affect Care: None marital status: Single Current Living Situation: Other Current Living Situation Comment: Pt states she lives with roommates 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 current occupation: [email or web address] major Other Information That Helps Us Care for You: No Feels Safe at Home: Yes Safety Concerns: Feels Safe At This Time Assistive Devices: Glasses Review of Systems Review of Systems: REVIEW OF SYSTEMS: Constitutional: No fever, sweats or chills Eyes: No diplopia, no worsening or blurred vision ENT: normal hearing, no trouble swallowing Respiratory: No cough, sputum, dyspnea at rest or on exertion Cardiovascular: No chest pain, tightness or palpitations Abdomen: No pain, nausea, vomiting, diarrhea or constipation Musculoskeletal: (+) pain, lower back Neurologic: No weakness, numbness/tingling, or balance problems Psychiatric: No anxiety or depression Skin: No rash or itch Physical Exam Physical Exam: PHYSICAL EXAM: General: awake, alert, no apparent distress Head: Normocephalic, atraumatic ENT: PERRL, EOMI, no pharyngeal exudate, mucous membranes moist, conjunctivae pink Neuro: AAO x 3, speech clear and appropriate, strength intact bilaterally 5/5, sensation intact and equal all extremities and dermatomes, no pronator drift Chest: equal rise and fall of the chest, no accessory muscle use, no heaves or thrills, Clear to auscultation, on room air, Cardiac: Regular rate and rhythm, telemetry reviewed- NSR , skin warm dry, cap refill <3 seconds, peripheral pulses +2 no JVD, no murmur, no edema GI: NABS x 4 quadrants, soft, nontender to palpation, no rebound, guarding or tenderness : Spontaneously voiding, no pain, no CVA tenderness, Extremities: Normal inspection, no peripheral edema or erythema, calfs nontender to palpation Psych: flat affect, but may be due to her dose of morphine Skin: no rash or erythema Results & Data Results & Data ([facility] [place]) Vital Signs (Past 12 Hours) Vital Signs Temp Pulse Pulse Resp BP BP Pulse Ox 11/26/20 15:04 68 16 115/66 97 11/26/20 12:19 94 H 16 116/62 97 11/26/20 11:52 96 11/26/20 11:15 36.4 C L 68 13 117/63 96 Laboratory Results Abnormal lab results 11/26/20 11/26/20 Range/Units 11:51 11:51 RBC 2.87 L (4.2-5.4) M/uL Hgb 10.4 L (12.0-16.0) g/dL Hct 29.2 L (37-47) % MCV 101.7 H (80-100) fL MCH 36.2 H (25-34) pg RDW Std Deviation 67.4 H (36.4-46.3) fL RDW Coeff of Nando 18.3 H (11.5-14.5) % Reticulocyte % (Auto) 13.6 H (0.5-2.0) % Neut # (Auto) 6.67 H (1.4-6.5) K/uL [place] # (Auto) 0.86 H (0.11-0.59) K/uL Reticulocyte # 0.39 H (0.02-0.10) 10^6/uL Immature Gran # (Auto) 0.04 H (0.00-0.02) K/uL Absolute Nucleated RBC 0.07 H (0-0) K/uL Immature Retic Fraction 40.6 H (3.0-15.9) % Retic Hgb Content 39.2 H (28.2-36.6) pg BUN 3 L (7-18) mg/dl Creatinine 0.49 L (0.6-1.2) mg/dl BUN/Creatinine Ratio 5.9 L (10-20) Total Bilirubin 3.3 H (0.2-1) mg/dl Direct Bilirubin 0.5 H (0-0.2) mg/dl Diagnostic Findings Chest X-Ray 11/26/20 11:56 SINGLE VIEW CHEST CLINICAL HISTORY: Atypical chest pain. FINDINGS: An AP, portable, upright chest radiograph is compared to study dated 10/30/2020 and correlated with chest CT dated 06/30/2020. The cardiac silhouette appears enlarged. The lungs and pleural spaces are clear. No pneumothorax is seen. The bony thorax is grossly intact. IMPRESSION: Cardiac enlargement with no acute cardiopulmonary abnormality identified. ACT 112: Negative or not required by law. Electronically signed by: Richard Mcmahon M.D. 11/26/2020 12:26 PM Medications Administered Home Medications folic acid 1 mg tablet 2 mg PO HS 11/18/19 [History Confirmed 11/26/20] hydroxyurea 500 mg capsule 1,000 mg PO BID 30 Days #120 cap 05/01/20 [Rx Confirmed 11/26/20] sennosides 8.6 mg tablet (Senokot) 17.2 mg PO QAM #60 tab 07/06/20 [Rx Confirmed 11/26/20] diclofenac sodium 1 % topical gel 4 g TOPICAL QID 07/26/20 [History Confirmed 11/26/20] tapentadol 150 mg tablet,extended release,12 hr (Nucynta ER) 150 mg PO BID #14 tab 08/29/20 [Rx Confirmed 11/26/20] naloxone 4 mg/actuation nasal spray (Narcan) 1 spray INTRANASAL .Q3 MINUTES PRN 09/04/20 [History Confirmed 11/26/20] pantoprazole 40 mg tablet,delayed release 40 mg PO BID #60 tab 09/08/20 [Rx Confirmed 11/26/20] sucralfate 1 gram tablet 1 g PO QID 30 Days #120 tab 09/08/20 [Rx Confirmed 11/26/20] olanzapine 5 mg tablet 5 mg PO HS 09/17/20 [History Confirmed 11/26/20] tapentadol 50 mg tablet (Nucynta) 50 mg PO BID 09/17/20 [History Confirmed 11/26/20] duloxetine 60 mg capsule,delayed release 60 mg PO HS #1 cap 09/20/20 [Rx Confirmed 11/26/20] famotidine 20 mg tablet 20 mg PO BID PRN #1 tab 09/20/20 [Rx Confirmed 11/26/20] ondansetron 4 mg disintegrating tablet 4 mg PO Q4H PRN 11/26/20 [History Confirmed 11/26/20] polyethylene glycol 3350 17 gram oral powder packet (Miralax) 17 g PO BID PRN 11/26/20 [History Confirmed 11/26/20] Active Medications Lactated Ringer's (Lr) 1,000 mls @ 125 mls/hr IV .Q8H WALTER Stop: 12/26/20 14:44 Parenteral Electrolytes (Normosol-R) 1,000 mls @ 125 mls/hr IV .Q8H WALTER Stop: 12/26/20 15:14 Discontinued Medications Sodium Chloride (Nss 1000ml) 2,000 mls @ 999 mls/hr IV .Q2H1M ONE Stop: 11/26/20 13:54 Last Admin: 11/26/20 12:44 Dose: 999 mls/hr Documented by: [id number] [facility]amin[facility] 1,000 mg in 100 mls @ 400 mls/hr IV NOW STA Stop: 11/26/20 12:08 Last Infusion: 11/26/20 13:00 Dose: 0 mls/hr Documented by: [id number] Admin: 11/26/20 12:44 Dose: 400 mls/hr Documented by: [id number] Ketorolac Tromethamine (Ketorolac Tromethamine 15 Mg/Ml Vial) 15 mg IV NOW STA Stop: 11/26/20 11:55 Last Admin: 11/26/20 12:44 Dose: 15 mg Documented by: [id number] Morphine Sulfate (Morphine Sulfate 10 Mg/Ml Carp/Vial) 8 mg IV NOW STA Stop: 11/26/20 11:55 Last Admin: 11/26/20 12:44 Dose: 8 mg Documented by: [id number] Morphine Sulfate (Morphine Sulfate 10 Mg/Ml Carp/Vial) 6 mg IV NOW STA Stop: 11/26/20 14:26 Last Admin: 11/26/20 15:05 Dose: 6 mg Documented by: [id number] Ondansetron HCl (Ondansetron Inj 2 Mg/Ml 2 Ml Vial) 4 mg IV NOW STA Stop: 11/26/20 11:55 Last Admin: 11/26/20 12:44 Dose: 4 mg Documented by: [id number] ECG Additional Comments: Normal sinus rhythm T wave abnormality, consider anterior ischemia Abnormal ECG When compared with ECG of 13-NOV-2020 14:23, No significant change was found Code Status & VTE Plan Code Status CODE: FULL VTE: SCDs, Lovenox 40 subq daily VTE Prophylaxis Plan VTE Prophylaxis will be ordered: Yes Supervising Physician Co-Signing Physician Notes NURSE SUBSTANCE ABUSE Supervision note: I have personally seen and examined the patient and discussed and verified the amaro points of the history and physical along with the plan with JANINE Ulloa with the following exceptions and/or additions: Pt presents with worsening back pain not responding to taking "3 in a row of my Nucynta" at home. She has not had any fevers. She reports that she has not been taking the Nucynta ER 150mg po bid despite it being prescribed and filled at [facility] pharmacy in 08/2020, 09/2020, and 10/2020. She states she never picked up the medication and can't remember the last time she took it. She does not think restarting her Nucynta ER will be enough to control her pain and warns that if she is not given IV pain medicine, that she will end up having a longer hospital stay if pain is not controlled "up front." Her vitals are stable, not hypoxic, not SOB, no CP, and hgb increased from previous at 10.4. Her retic count is high at 13 and her TBili is higher than previous at 3.3. History and ROS reviewed as above VSS NAD, AAOx3, very calm and pleasant, texting on cell phone during my physical examination at one point RRR no mgr CTAB no wcr Abd +BS soft +TTP with facial grimace with palpation but not when stethoscope pushed into abdomen, no guarding or rebound Ext no edema, 2+ DP pulses Skin no rashes Labs and Rads, ECG all reviewed 20 yo female here with sickle cell crisis, increased back pain. Fortunately, hgb stable although retic count up, no need for transfusion of PRBCs at this point, no evidence of chest crisis or hepatic sequestration -continue IVFs with LR-avoid NS and can switch to hypotonic fluid to avoid hypernatremia which can worsen sickle crisis -follow CBC, retic count, and CMP in AM -consider Heme consult -As for pain control, she has a very complex history of opioid use and question able misuse-she states she is not taking Nucynta ER and can't remember when she last took it, yet she continues to fill it at the pharmacy as recently as 5 weeks ago for a 30 day supply. Difficult to say if this is accurate.--> Discussed with her about restarting Nucynta ER 100mg po bid (home dose was 150mg bid) and continuing with home Nucynta IR 50mg po bid prn, and will add on IV morphine 4mg IV [id number] to a max of 3 doses through tonight. The [employer] [facility] Team will take over her care in the morning and they are quite familiar with her care. Recommend keeping her scheduled f/u appt with the Sickle Cell team at [place] for later this month. PG Care Time/CCT Total # of Minutes Spent Total Time Spent with Patient: Total time spent is greater than 50% in coordination of care (as documented) at patient's floor/unit and/or counseling patient: Coding Level of Care Code 69244 Initial Inpt Care Lvl 2 Diagnoses Sickle cell crisis D57.00 Psychogenic nonepileptic seizure F44.5 Depression F33.2 Active/Remission status: currently active Depression Type: major depressive disorder Major depression episode severity: severe Major depression recurrence: recurrent Psychotic features: without psychotic features Borderline personality disorder F60.3 GERD (gastroesophageal reflux disease) K21.9 Esophagitis presence: esophagitis presence not specified Opioid-induced hyperalgesia R20.8; T40.2X5A Hyperbilirubinemia E80.6 (1) Depression Active/Remission status: currently active Depression Type: major depressive disorder Major depression episode severity: severe Major depression recurrence: recurrent Psychotic features: without psychotic features Qualified Code(s): F33.2 - Major depressive disorder, recurrent severe without psychotic features (2) GERD (gastroesophageal reflux disease) Esophagitis presence: esophagitis presence not specified Qualified Code(s): K21.9 - Gastro-esophageal reflux disease without esophagitis
[2020-11-26] MEDS ORDERED: ACETAMINOPHEN 325 MG TAB PO PRN (15:46)
[2020-11-26] MEDS ORDERED: POLYETHYLENE (MIRALAX) 17 GM PACK PO PRN ×2 (17:52)
[2020-11-26] MEDS ORDERED: FAMOTIDINE 20 MG TAB PO PRN (17:52)
[2020-11-26] MEDS ORDERED: NALOXONE NASAL SPRAY 4 MG ER HOMEPACK PRN (17:52)
[2020-11-26] MEDS: LACTATED RINGER'S 1,000 ML IV SCH (18:47)
[2020-11-26] MEDS: MoRPHine SULFATE 4 MG/ML 1 ML CARP\\VIAL IV PRN (20:27)
[2020-11-26] MEDS: ENOXAPARIN INJ 40 MG/0.4 ML SYR SQ SCH (20:30)
[2020-11-26] MEDS: DULoxetine HCL 60 MG CAP PO SCH (20:31)
[2020-11-26] MEDS: OLANZapine 5 MG TABLET PO SCH (20:33)
[2020-11-26] MEDS: FOLIC ACID 1 MG TAB PO SCH (20:33)
[2020-11-26] MEDS: PANTOprazole 40 MG TAB PO SCH (20:34)
[2020-11-26] MEDS: SUCRALFATE 1 GM TAB PO SCH ×2 (20:35→23:14)
[2020-11-26] MEDS: HYDROXYUREA 500 MG CAP PO SCH (20:35)
[2020-11-26] MEDS: DICLOFENAC SOD 1% GEL 100 GM TUBE EXT SCH ×2 (20:35→22:11)
[2020-11-26] MEDS: TAPENTADOL HCL 50 MG TAB PO SCH (20:35)
[2020-11-26] MEDS: TAPENTADOL HCL ER 50 MG TABCR PO SCH (20:43)
[2020-11-26] MEDS ORDERED: TAPENTADOL HCL ER 50 MG TABCR PO SCH (21:00)
[2020-11-26 23:26] LABS: Appearance Urine Clear (Clear); Bacteria Urine Automated Negative (Negative); Bilirubin Urine Negative (Negative); Blood Urine Negative (Negative); Cast Urine Automated 0 /lpf (0-5); Color Urine Yellow; Epithelial Cell Urine Auto >30 /lpf (0-5); Glucose Urine UA Negative (Negative); Ketones Urine Trace (Negative); Leukocyte Esterase Urine 1+ (Negative); Nitrite Urine Negative (Negative); Protein Urine Negative (Negative); RBC Urine Automated 0-4 /hpf (0-4); Specific Gravity Urine 1.012 (1.000-1.030); Urobilinogen Urine Negative (Negative); pH Urine 6.5 (4.5-7.5)
[2020-11-27] MEDS: LACTATED RINGER'S 1,000 ML IV SCH ×3 (04:13→20:56)
[2020-11-27] MEDS: MoRPHine SULFATE 4 MG/ML 1 ML CARP\\VIAL IV PRN ×4 (06:38→23:31)
[2020-11-27] MEDS ORDERED: FLUARIX QUADRIVALENT 0.5 ML SYR IM ONE (08:00)
[2020-11-27 08:50] LABS: Basophils # (auto) 0.02 K/uL (0-0.2); Basophils % (auto) 0.3 %; Eosinophils # (auto) 0.15 K/uL (0-0.5); Eosinophils % (auto) 2.4 %; Hematocrit (blood only) 24.2 % (37-47); Hemoglobin 8.8 g/dL (12.0-16.0); Immature Granulocytes # (auto) 0.02 K/uL (0.00-0.02); Immature Granulocytes % (auto) 0.3 %; Immature Retic Fraction 40.7 % (3.0-15.9); Lymphocytes # (auto) 2.59 K/uL (1.2-3.4); Lymphocytes % (auto) 41.8 %; Mean Corpuscular Hemoglobin 37.1 pg (25-34); Mean Corpuscular Hgb Conc 36.4 g/dL (32-36); Mean Corpuscular Volume 102.1 fL (80-100); Mean Platelet Volume 9.2 fL (7.4-10.4); Monocytes # (auto) 0.66 K/uL (0.11-0.59); Monocytes % (auto) 10.6 %; Neutrophils # (auto) 2.76 K/uL (1.4-6.5); Neutrophils % (auto) 44.6 %; Nucleated RBC # (auto) 0.05 K/uL (0-0); Nucleated RBC % (auto) 0.7 %; Platelet Count 317 K/uL (130-400); RDW Coefficient of Variation 18.6 % (11.5-14.5); RDW Standard Deviation 68.2 fL (36.4-46.3); Red Blood Count 2.37 M/uL (4.2-5.4); Reticulated Hemoglobin 38.2 pg (28.2-36.6); Reticulocyte % 14.8 % (0.5-2.0); Reticulocytes # 0.35 10^6/uL (0.02-0.10)
--- NOTE | 2020-11-27 08:53 | Hospitalist Progress Note ---
Date of Service November 27, 2020 Assessment & Plan (1) Sickle cell anemia: Plan: Sickle cell crisis: Plan: Elevated reticulocyte count, pain lower back -hgb 10.4 -> 8.8 - CXR clear not on oxygen therapy - Continue with IVF-LR 125ml/hour - continue pain control with- diclofenac gel Nucynta IR/Nucynta ER/Tylenol- consider NSAID and Opiods (hydromorphone 1-2mg) if needed - Follow HGB/HCT/Retic panel - Continue Hydroxyurea 1000mg PO BID- can increase if needed - afebrile, follow BCxs Depression: - continue duloxetine and olanzipine Borderline personality disorder: - As above GERD (gastroesophageal reflux disease): - continue Protonix 40mg PO daily Psychogenic nonepileptic seizure: Usually occurs with stressful events - maintain safety limits Opioid-induced hyperalgesia: - as above- was seen by pain services in July Hyperbilirubinemia: Chronically elevated although not typically this high, perhaps chronic rbc hemolysis initial T bili 3.3 predominantly indirect -> other LFTs normal, plts normal, afebrile CT abd/pel 3 weeks ago normal and RUQ US in 07/2020 with a few small gallstones seen has chronic elevation of TBili but not as high as this-perhaps some component of Gilbert's? Does not seem concerning for hepatic sequestration at this time as hgb stable -hydrate overnight follow LFTs in the AM DVT: Lovenox Code: Full Diet: Regular Admission and Anticipated Discharge Date Admission Date: November 26, 2020 Subjective Donta Early was sleeping comfortably this morning when I saw her. Results & Data Results & Data ([facility]) Vital Signs (Past 12 Hours) Vital Signs Temp Pulse Resp BP Pulse Ox 11/27/20 07:47 36.7 C 75 16 102/60 93 11/26/20 22:35 36.6 C 90 16 121/74 94 (1) Sickle cell anemia Sickle-cell associated disorders: with unspecified crisis Qualified Code(s): D57.00 - Hb-SS disease with crisis, unspecified
[2020-11-27 09:07] LABS: Albumin Level 3.1 gm/dl (3.4-5.0); BUN Creatinine Ratio 13.2 (10-20); Bilirubin Direct 0.3 mg/dl (0-0.2); Blood Urea Nitrogen 6 mg/dl (7-18); Calcium 8.4 mg/dl (8.5-10.1); Carbon Dioxide 27 mmol/L (21-32); Chloride 109 mmol/L (98-107); Creatinine Clr Calc Pharmacy 201.5 ml/min; Est GFR (African American) > 150.0 ml/min; Est GFR (Non-African American) 142.2 ml/min; Glucose 86 mg/dl (70-99); Magnesium 1.8 mg/dl (1.8-2.4); Potassium 3.7 mmol/L (3.5-5.1); Sodium 141 mmol/L (136-145)
[2020-11-27 09:10] LABS: Alanine Aminotransferase 18 U/L (12-78); Alkaline Phosphatase 64 U/L (45-117); Aspartate Aminotransferase 27 U/L (15-37); Total Protein 6.8 gm/dl (6.4-8.2)
[2020-11-27] MEDS: HYDROXYUREA 500 MG CAP PO SCH ×2 (09:46→21:23)
[2020-11-27] MEDS: PANTOprazole 40 MG TAB PO SCH ×2 (09:47→21:22)
[2020-11-27] MEDS: SENNA 8.6 MG TAB PO SCH (09:47)
[2020-11-27] MEDS: SUCRALFATE 1 GM TAB PO SCH ×4 (09:47→21:24)
[2020-11-27] MEDS: TAPENTADOL HCL 50 MG TAB PO SCH (09:51)
[2020-11-27] MEDS: TAPENTADOL HCL ER 50 MG TABCR PO SCH ×2 (09:51→21:22)
[2020-11-27] MEDS: DICLOFENAC SOD 1% GEL 100 GM TUBE EXT SCH ×4 (09:52→21:30)
--- NOTE | 2020-11-27 14:04 | Electrocardiogram Report ---
Test Reason : Blood Pressure : / mmHG Vent. Rate : 075 BPM Atrial Rate : 075 BPM P-R Int : 200 ms QRS Dur : 078 ms QT Int : 388 ms P-R-T Axes : 050 063 042 degrees QTc Int : 433 ms Poor data quality, interpretation may be adversely affected Normal sinus rhythm Persistent Juvenile T wave abnormality Abnormal ECG When compared with ECG of 13-NOV-2020 14:23, No significant change was found Confirmed by Mello Pedersen ([id number]) on 11/27/2020 2:04:21 PM Referred By: REFERRED SELF Confirmed By:Mello Pedersen
[2020-11-27] MEDS: TAPENTADOL HCL 50 MG TAB PO PRN ×2 (17:29→22:11)
--- NOTE | 2020-11-27 19:35 | Hospitalist Progress Note ---
Date of Service November 27, 2020 Assessment & Plan (1) Sickle cell crisis: Plan: Chronic/complicated situation where she has very real sickle cell crisis pain, but also a degree of chronic pain neurophysiology given how frequently/how often she was in crisis for quite a while. Further, while it is probably significantly less on the Nucynta, there was also likely component of narcotics-induced hyperalgesia complicating the pain situation further. -Her bilirubin being higher than baseline would suggest a good bit of this being acute crisis, her peripheral smear looks reasonably reassuring suggesting it may be a bit of a mixture of her complicated picture -Suspect the worsening of the sickle cell probably did come with the change in the weather, it is unfortunate that her roommate insists on keeping the apartment cold whenever it can actually lead to real, and significant fallout for the patient -IV fluids, pain control. We will change the Nucynta short acting to every 4 hours as neededand discussed with patient/nursing to try this prior to the IV morphine to see how much it may help -We will discuss further with patient in regards to the long and short acting medicinesit is possible that she thought they were different doses of short acting, rather than different formulations for duration of action. In that respect, clarifying her chronic pain regimen may also help. -Despite her current hospitalization, it is reassuring that she has actually b een out of the hospital as it relates to her sickle cell and pain for almost 3 months -While I strongly suspect it is just progression of her avascular necrosis, will get routine hip x-rays to evaluate further (2) Depression: Plan: Continue duloxetine and olanzipine, currently seems to be reasonably stable (3) Borderline personality disorder: Plan: Has not really been an active issue in her medical care in quite some time. While I would defer to psychiatric expertise in truly making the diagnosis, I question of some of her borderline features are and even just frustration with her chronic pain situation, as well as some family turmoil that causes anxiety and distress (4) GERD (gastroesophageal reflux disease): Plan: continue Protonix 40mg PO daily (5) Psychogenic nonepileptic seizure: Plan: Continue reassurance, anxiety management, pain controlif an episode were to occur, generally she is safe during them, would just observe to ensure that she does not end up in any potentially harmful situation (6) Opioid-induced hyperalgesia: Plan: Now more mitigated after transition to Nucynta (7) Hyperbilirubinemia: Plan: Probably a marker of a degree of sickle cell crisis Admission and Anticipated Discharge Date Admission Date: November 26, 2020 Subjective Pain doing reasonably with current regimennotes that she would be willing to try p.o. Nucynta prior to IV morphine, with the hopes that maybe it would get her out of the hospital sooner. Thinks that the change in the weather was likely what led to her worsening pain, notes that despite her pleas to keep the apartment reasonably warm, her roommate tends to keep the temperature in the mid 60s. Notes that she was doing fairly welland has not been in the hospital anywhere since her discharge over the summer, was doing well getting to classes, able to walk across campusnotes that her left hip is hurting worse and she wonders if she has had some progression of her avascular necrosis, but outside of that was really pleased with how she was doingto that end she was actually trying to space out her pain medicine some, possibly a little too much. Clarifyingshe is really not aware that she has long and short acting Nucynta, thinking that she only has the short acting. PDMP reviewedit appears that both prescriptions were filled. Review of Systems Review of Systems: All systems reviewed & are unremarkable except as noted in HPI & below Physical Exam Physical Exam: In general she is awake and alert pleasant no distress. HEENT normocephalic atraumatic mucous membranes moist. Breathing unlabored no accessory muscle use good effort. Skin shows no rashes no pallor or icterus. Neuro without focal deficits. Results & Data Results & Data ([facility]) Vital Signs (Past 12 Hours) Vital Signs Temp Pulse Resp BP Pulse Ox 11/27/20 15:35 97.9 F 63 16 106/68 92 11/27/20 07:47 98.1 F 75 16 102/60 93 PG Care Time/CCT Total # of Minutes Spent Total Time Spent with Patient: Total time spent is greater than 50% in coordination of care (as documented) at patient's floor/unit and/or counseling patient: Coding Level of Care Code 86052 Subseq Hosp Care Lvl 3 Diagnoses Sickle cell crisis D57.00 Depression F33.2 Active/Remission status: currently active Depression Type: major depressive disorder Major depression episode severity: severe Major depression recurrence: recurrent Psychotic features: without psychotic features Borderline personality disorder F60.3 GERD (gastroesophageal reflux disease) K21.9 Esophagitis presence: esophagitis presence not specified Psychogenic nonepileptic seizure F44.5 Opioid-induced hyperalgesia R20.8; T40.2X5A Hyperbilirubinemia E80.6 (1) Depression Active/Remission status: currently active Depression Type: major depressive disorder Major depression episode severity: severe Major depression recurrence: recurrent Psychotic features: without psychotic features Qualified Code(s): F33.2 - Major depressive disorder, recurrent severe without psychotic features (2) GERD (gastroesophageal reflux disease) Esophagitis presence: esophagitis presence not specified Qualified Code(s): K21.9 - Gastro-esophageal reflux disease without esophagitis
[2020-11-27] MEDS: FOLIC ACID 1 MG TAB PO SCH (21:22)
[2020-11-27] MEDS: OLANZapine 5 MG TABLET PO SCH (21:23)
[2020-11-27] MEDS: DULoxetine HCL 60 MG CAP PO SCH (21:23)
[2020-11-27] MEDS: ENOXAPARIN INJ 40 MG/0.4 ML SYR SQ SCH (21:23)
[2020-11-28] MEDS: TAPENTADOL HCL 50 MG TAB PO PRN ×3 (02:55→16:34)
[2020-11-28] MEDS: MoRPHine SULFATE 4 MG/ML 1 ML CARP\\VIAL IV PRN ×4 (04:22→21:57)
[2020-11-28] MEDS: LACTATED RINGER'S 1,000 ML IV SCH ×4 (04:31→20:53)
[2020-11-28 06:43] LABS: Basophils # (auto) 0.02 K/uL (0-0.2); Basophils % (auto) 0.3 %; Eosinophils # (auto) 0.16 K/uL (0-0.5); Eosinophils % (auto) 2.3 %; Hematocrit (blood only) 24.9 % (37-47); Hemoglobin 8.8 g/dL (12.0-16.0); Immature Granulocytes # (auto) 0.02 K/uL (0.00-0.02); Immature Granulocytes % (auto) 0.3 %; Lymphocytes # (auto) 2.72 K/uL (1.2-3.4); Lymphocytes % (auto) 39.4 %; Mean Corpuscular Hemoglobin 35.9 pg (25-34); Mean Corpuscular Hgb Conc 35.3 g/dL (32-36); Mean Corpuscular Volume 101.6 fL (80-100); Mean Platelet Volume 9.4 fL (7.4-10.4); Monocytes # (auto) 0.56 K/uL (0.11-0.59); Monocytes % (auto) 8.1 %; Neutrophils # (auto) 3.42 K/uL (1.4-6.5); Neutrophils % (auto) 49.6 %; Nucleated RBC # (auto) 0.04 K/uL (0-0); Nucleated RBC % (auto) 0.6 %; Platelet Count 326 K/uL (130-400); RDW Coefficient of Variation 18.8 % (11.5-14.5); RDW Standard Deviation 70.1 fL (36.4-46.3); Red Blood Count 2.45 M/uL (4.2-5.4)
[2020-11-28 07:02] LABS: BUN Creatinine Ratio 10.6 (10-20); Blood Urea Nitrogen 5 mg/dl (7-18); Calcium 9.1 mg/dl (8.5-10.1); Carbon Dioxide 30 mmol/L (21-32); Chloride 107 mmol/L (98-107); Creatinine Clr Calc Pharmacy 181.4 ml/min; Est GFR (African American) > 150.0 ml/min; Est GFR (Non-African American) 137.4 ml/min; Glucose 87 mg/dl (70-99); Magnesium 1.6 mg/dl (1.8-2.4); Potassium 3.6 mmol/L (3.5-5.1); Sodium 141 mmol/L (136-145)
[2020-11-28] MEDS: DICLOFENAC SOD 1% GEL 100 GM TUBE EXT SCH ×4 (08:44→20:57)
[2020-11-28] MEDS: HYDROXYUREA 500 MG CAP PO SCH ×2 (08:45→20:52)
[2020-11-28] MEDS: SUCRALFATE 1 GM TAB PO SCH ×4 (08:45→20:53)
[2020-11-28] MEDS: PANTOprazole 40 MG TAB PO SCH ×2 (08:45→20:53)
[2020-11-28] MEDS: SENNA 8.6 MG TAB PO SCH (08:49)
[2020-11-28] MEDS: TAPENTADOL HCL ER 50 MG TABCR PO SCH ×2 (08:49→20:50)
--- NOTE | 2020-11-28 08:52 | XRay Report ---
XR hip LT 2V w pelvis CLINICAL HISTORY: worsening pain, known DJD, ?fx/erosion COMPARISON STUDY: Pelvis radiograph 08/30/2020. Abdomen and pelvis CT 10/31/2020. FINDINGS: Redemonstration of the bilateral femoral head avascular necrosis, left greater than right. There is a subacute subchondral fracture of the left femoral head with mild impaction. This is simila r to the prior studies. No acute fracture or dislocation within the pelvis or hips. Bone infarct with in the proximal right femur remains unchanged. Mild thickening within the right inferior pubic ramus is also unchanged and is likely chronic. IMPRESSION: 1. There is a subacute subchondral fracture of the left femoral head with mild impaction. This is sim ilar to the prior studies. No acute fracture or dislocation within the pelvis or hips. 2. Additional chronic manifestations of sickle cell disease are again noted. ACT 112: Negative or not required by law. Electronically signed by: Cortes Fletcher M.D. 11/28/2020 8:51 AM
--- NOTE | 2020-11-28 17:38 | Consultation Report ---
DATE OF SERVICE: 11/28/2020 The patient is an unfortunate 20-year-old female from [place], who has sickle cell disease. She has had several months of 6/10 hip pain, which is currently now 7/10. This is her left hip. She has had no injury. She is admitted with sickle cell crisis and Dr. Kerr asked us to see her about her l eft hip because of x-ray findings and increased pain. Her health history is noted. Outpatient medications are noted and reviewed. She has no allergies. White count is 7, hemoglobin 9, hematocrit 25, platelets 326. X-rays are reviewed and demonstrate av ascular necrosis in bilateral hips. Bone infarction is noted in the metaphysis of the right hip. Th ere is no arthritis, but she does have subchondral collapse anterosuperior on the left hip. No fract ure. Report noted. On exam, she can actively and passively flex her hip to about 90. Internal rotation 10 degrees. Exte rnal about 20. Movements are painful and cause discomfort in the hip going down towards the knee. S he has full painless movement of the right hip. Her strength distally is normal, 5/5 ankle and toe p lantar flexion, dorsiflexion, inversion, and eversion. Her pulses are 1+ and her sensation is normal . There is no bruising or swelling evident. 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 PLAN: Findings are discussed. I do not think there is a role for a cortisone injection here at [facility]. I would recommend that she follow up with a hip specialist at [place] or at another [facility] to consider any hip preservation or replacement procedures that might be of benefi t for her. In the meantime, controlling her pain from her sickle cell crisis. Also, I would recomme nd weightbearing as tolerated to control pain with crutches on her left leg. We will be happy to see her as an outpatient and help coordinate her care with the specialist if felt necessary. Job ID: [id number]
--- NOTE | 2020-11-28 19:26 | Hospitalist Progress Note ---
Date of Service November 28, 2020 Assessment & Plan (1) Sickle cell crisis: Plan: Chronic/complicated situation where she has very real sickle cell crisis pain, but also a degree of chronic pain neurophysiology given how frequently/how often she was in crisis for quite a while. Further, while it is probably significantly less on the Nucynta, there was also likely component of narcotics-induced hyperalgesia complicating the pain situation further. -Her bilirubin being higher than baseline would suggest a good bit of this being acute crisis, her peripheral smear looks reasonably reassuring suggesting it may be a bit of a mixture of her complicated picture -Suspect the worsening of the sickle cell probably did come with the change in the weather, it is unfortunate that her roommate insists on keeping the apartment cold whenever it can actually lead to real, and significant fallout for the patient -IV fluids, pain control. Right now requiring IV morphine for pain control. Continue -We will discuss further with patient in regards to the long and short acting medicinesit is possible that she thought they were different doses of short acting, rather than different formulations for duration of action. In that respect, clarifying her chronic pain regimen may also help. -Despite her current hospitalization, it is reassuring that she has actually been out of the hospital as it relates to her sickle cell and pain for almost 3 months Hip painworsening avascular necrosis. Orthopedic surgery input greatly appreciated. For now pain control, then tertiary Ortho eval later. (2) Depression: Plan: Continue duloxetine and olanzipine, currently seems to be reasonably stable (3) Borderline personality disorder: Plan: Has not really been an active issue in her medical care in quite some time. While I would defer to psychiatric expertise in truly making the diagnosis, I question of some of her borderline features are and even just frustration with her chronic pain situation, as well as some family turmoil that causes anxiety and distress (4) GERD (gastroesophageal reflux disease): Plan: continue Protonix 40mg PO daily (5) Psychogenic nonepileptic seizure: Plan: Continue reassurance, anxiety management, pain controlif an episode were to occur, generally she is safe during them, would just observe to ensure that she does not end up in any potentially harmful situation (6) Opioid-induced hyperalgesia: Plan: Now more mitigated after transition to Nucynta, continue to follow (7) Hyperbilirubinemia: Plan: Probably a marker of a degree of sickle cell crisis Admission and Anticipated Discharge Date Admission Date: November 26, 2020 Subjective Feeling worseleft hip pain worse. Pain overall fairly bad chest, back, all over. Nucynta not helping enoughmorphine helping reasonably. Later discussed with orthopedicsinput greatly appreciated. Review of Systems Review of Systems: All systems reviewed & are unremarkable except as noted in HPI & below Physical Exam Physical Exam: General she is awake and alert appears more fatigued. No overt distress but definitely not as bright as yesterday. HEENT normocephalic atraumatic mucous membranes are moist. Breathing unlabored no accessory muscle use good effort. Skin shows no rashes, no pallor, no icterus Results & Data Results & Data ([facility]) Vital Signs (Past 12 Hours) Vital Signs Temp Pulse Resp BP Pulse Ox 11/28/20 14:52 98.4 F 75 16 119/77 95 11/28/20 07:32 98.1 F 77 16 113/77 95 PG Care Time/CCT Total # of Minutes Spent Total Time Spent with Patient: Total time spent is greater than 50% in coordination of care (as documented) at patient's floor/unit and/or counseling patient: Coding Level of Care Code 29332 Subseq Hosp Care Lvl 3 Diagnoses Sickle cell crisis D57.00 Depression F33.2 Active/Remission status: currently active Depression Type: major depressive disorder Major depression episode severity: severe Major depression recurrence: recurrent Psychotic features: without psychotic features Borderline personality disorder F60.3 GERD (gastroesophageal reflux disease) K21.9 Esophagitis presence: esophagitis presence not specified Psychogenic nonepileptic seizure F44.5 Opioid-induced hyperalgesia R20.8; T40.2X5A Hyperbilirubinemia E80.6 (1) Depression Active/Remission status: currently active Depression Type: major depressive disorder Major depression episode severity: severe Major depression recurrence: recurrent Psychotic features: without psychotic features Qualified Code(s): F33.2 - Major depressive disorder, recurrent severe without psychotic features (2) GERD (gastroesophageal reflux disease) Esophagitis presence: esophagitis presence not specified Qualified Code(s): K21.9 - Gastro-esophageal reflux disease without esophagitis
[2020-11-28] MEDS: DULoxetine HCL 60 MG CAP PO SCH (20:50)
[2020-11-28] MEDS: ENOXAPARIN INJ 40 MG/0.4 ML SYR SQ SCH ×2 (20:51→20:58)
[2020-11-28] MEDS: FOLIC ACID 1 MG TAB PO SCH (20:52)
[2020-11-28] MEDS: OLANZapine 5 MG TABLET PO SCH (20:53)
[2020-11-29] MEDS: TAPENTADOL HCL 50 MG TAB PO PRN ×4 (00:28→16:07)
[2020-11-29] MEDS: MoRPHine SULFATE 4 MG/ML 1 ML CARP\\VIAL IV PRN ×6 (03:42→22:52)
[2020-11-29] MEDS: LACTATED RINGER'S 1,000 ML IV SCH ×3 (04:53→21:00)
[2020-11-29 07:06] LABS: Basophils # (auto) 0.03 K/uL (0-0.2); Basophils % (auto) 0.5 %; Eosinophils # (auto) 0.13 K/uL (0-0.5); Eosinophils % (auto) 2.2 %; Hematocrit (blood only) 24.3 % (37-47); Hemoglobin 8.7 g/dL (12.0-16.0); Immature Granulocytes # (auto) 0.02 K/uL (0.00-0.02); Immature Granulocytes % (auto) 0.3 %; Lymphocytes # (auto) 2.83 K/uL (1.2-3.4); Lymphocytes % (auto) 48.9 %; Mean Corpuscular Hemoglobin 36.4 pg (25-34); Mean Corpuscular Hgb Conc 35.8 g/dL (32-36); Mean Corpuscular Volume 101.7 fL (80-100); Mean Platelet Volume 9.4 fL (7.4-10.4); Monocytes # (auto) 0.35 K/uL (0.11-0.59); Neutrophils # (auto) 2.43 K/uL (1.4-6.5); Neutrophils % (auto) 42.1 %; Nucleated RBC # (auto) 0.14 K/uL (0-0); Nucleated RBC % (auto) 2.4 %; Platelet Count 318 K/uL (130-400); RDW Coefficient of Variation 18.4 % (11.5-14.5); RDW Standard Deviation 68.5 fL (36.4-46.3); Red Blood Count 2.39 M/uL (4.2-5.4); White Blood Count 5.79 K/uL (4.8-10.8)
[2020-11-29 07:11] LABS: BUN Creatinine Ratio 13.7 (10-20); Blood Urea Nitrogen 7 mg/dl (7-18); Calcium 8.6 mg/dl (8.5-10.1); Carbon Dioxide 25 mmol/L (21-32); Chloride 107 mmol/L (98-107); Creatinine Clr Calc Pharmacy 171.1 ml/min; Est GFR (African American) > 150.0 ml/min; Est GFR (Non-African American) 134.8 ml/min; Glucose 82 mg/dl (70-99); Magnesium 1.6 mg/dl (1.8-2.4); Potassium 3.7 mmol/L (3.5-5.1); Sodium 140 mmol/L (136-145)
[2020-11-29 07:48] LABS: Poikilocytosis Present; Polychromasia 1+; Sickle Cells Occasional; Target Cells 1+
[2020-11-29] MEDS: TAPENTADOL HCL ER 50 MG TABCR PO SCH ×2 (08:44→20:56)
[2020-11-29] MEDS: PANTOprazole 40 MG TAB PO SCH ×2 (08:45→20:54)
[2020-11-29] MEDS: HYDROXYUREA 500 MG CAP PO SCH ×2 (08:45→20:55)
[2020-11-29] MEDS: DICLOFENAC SOD 1% GEL 100 GM TUBE EXT SCH ×4 (08:45→20:55)
[2020-11-29] MEDS: SUCRALFATE 1 GM TAB PO SCH ×4 (08:45→20:54)
[2020-11-29] MEDS: SENNA 8.6 MG TAB PO SCH (08:45)
--- NOTE | 2020-11-29 17:38 | Hospitalist Progress Note ---
Date of Service November 29, 2020 Assessment & Plan (1) Sickle cell crisis: Plan: Chronic/complicated situation where she has very real sickle cell crisis pain, but also a degree of chronic pain neurophysiology given how frequently/how often she was in crisis for quite a while. Further, while it is probably significantly less on the Nucynta, there was also likely component of narcotics-induced hyperalgesia complicating the pain situation further. -Her bilirubin being higher than baseline would suggest a good bit of this being acute crisis, her peripheral smear looks reasonably reassuring suggesting it may be a bit of a mixture of her complicated picture -Suspect the worsening of the sickle cell probably did come with the change in the weather, it is unfortunate that her roommate insists on keeping the apartment cold whenever it can actually lead to real, and significant fallout for the patient -IV fluids, pain control. Right now requiring IV morphine for pain control. Continue until pain starts to show improvement -We will discuss further with patient in regards to the long and short acting medicinesit is possible that she thought they were different doses of short acting, rather than different formulations for duration of action. In that respect, clarifying her chronic pain regimen may also help. -Despite her current hospitalization, it is reassuring that she has actually been out of the hospital as it relates to her sickle cell and pain for almost 3 months (2) Avascular necrosis of bone of hip: Plan: While she is having diffuse whole body pain, consistent with her sickle cell crises, she also has much more focused pain in the left hip, as well as the low back. Unfortunately on x-ray it appears that her avascular necrosis has progressedto the point that orthopedics feels a tertiary orthopedics eval would be quite reasonable, and she may need arthroplasty in the near future. Further, as biomechanical fallout from the worsening hip arthritisand undoubtedly a change in her gait mechanicsshe examines consistent with pelvic somatic dysfunctionparticularly in the region of the piriformiswhich is likely the cause of her low back pain. Continue to manage the hip pain with pain medicines as possible, plan on outpatient tertiary orthopedics evaluation, and treat biomechanical problems as possible. (3) Somatic dysfunction of pelvis region: Plan: OMT done as above, stretches taught to patient (4) Depression: Plan: Continue duloxetine and olanzipine, currently seems to be reasonably stable (5) Borderline personality disorder: Plan: Has not really been an active issue in her medical care in quite some time. While I would defer to psychiatric expertise in truly making the diagnosis, I question of some of her borderline features are and even just frustration with her chronic pain situation, as well as some family turmoil that causes anxiety and distress (6) GERD (gastroesophageal reflux disease): Plan: continue Protonix 40mg PO daily (7) Psychogenic nonepileptic seizure: Plan: Continue reassurance, anxiety management, pain controlif an episode were to occur, generally she is safe during them, would just observe to ensure that she does not end up in any potentially harmful situation (8) Opioid-induced hyperalgesia: Plan: Now more mitigated after transition to Nucynta, continue to follow (9) Hyperbilirubinemia: Plan: Probably a marker of a degree of sickle cell crisiswe will repeat bilirubin tomorrow (10) DVT prophylaxis: Plan: Lovenox Admission and Anticipated Discharge Date Admission Date: November 26, 2020 Subjective Still having a good bit of diffuse pain. All over, chest, back. However, a lot of the pain is focused in her low back, left hip, and a little bit right hip. In clarifying the location of the hip pain it is more lateral and posterior, although there is a groin component to it. She seems frustrated by her current worsening, but not discouragednoting that she is really trying to revamp her approach to her chronic illness and a much more mind-body way. Review of Systems Review of Systems: All systems reviewed & are unremarkable except as noted in HPI & below Physical Exam Physical Exam: In general she is awake and alert, fatigued but no distress. HEENT normocephalic atraumatic mucous membranes are moist. Breathing unlabored no accessory muscle use good effort. Skin shows no rashes no pallor or icterus. Musculoskeletal/osteopathic shows her to be left greater than right pelvic musculature in the region of piriformis to be high in tone, tender/painful range of motion, decreased range of motion. Left more than right tight, but post isometric relaxation muscle energy done bilaterally with mild improvement in range of motion. Later taught patient stretches. No focal neuro deficits. Results & Data Results & Data ([facility]) Vital Signs (Past 12 Hours) Vital Signs Temp Pulse Resp BP Pulse Ox 11/29/20 15:24 97.5 F L 76 16 106/67 95 10/13/21 07:28 98.4 F 61 16 106/66 98 PG Care Time/CCT Total # of Minutes Spent Total Time Spent with Patient: Total time spent is greater than 50% in coordination of care (as documented) at patient's floor/unit and/or counseling patient: Coding Level of Care Code 09453 Subseq Hosp Care Lvl 3 Diagnoses Sickle cell crisis D57.00 Depression F33.2 Active/Remission status: currently active Depression Type: major depressive disorder Major depression episode severity: severe Major depression recurrence: recurrent Psychotic features: without psychotic features Borderline personality disorder F60.3 GERD (gastroesophageal reflux disease) K21.9 Esophagitis presence: esophagitis presence not specified Psychogenic nonepileptic seizure F44.5 Opioid-induced hyperalgesia R20.8; T40.2X5A Hyperbilirubinemia E80.6 Avascular necrosis of bone of hip M87.059 Somatic dysfunction of pelvis region M99.05 DVT prophylaxis Z29.9 CPT Codes Musculoskeletal - Musculoskeletal: [address] 1-2 Body regions ([id number]) (1) Depression Active/Remission status: currently active Depression Type: major depressive disorder Major depression episode severity: severe Major depression recur rence: recurrent Psychotic features: without psychotic features Qualified Code(s): F33.2 - Major depressive disorder, recurrent severe without psychotic features (2) GERD (gastroesophageal reflux disease) Esophagitis presence: esophagitis presence not specified Qualified Code(s): K21.9 - Gastro-esophageal reflux disease without esophagitis
[2020-11-29] MEDS: ENOXAPARIN INJ 40 MG/0.4 ML SYR SQ SCH (20:20)
[2020-11-29] MEDS: DULoxetine HCL 60 MG CAP PO SCH (20:54)
[2020-11-29] MEDS: OLANZapine 5 MG TABLET PO SCH (20:54)
[2020-11-29] MEDS: FOLIC ACID 1 MG TAB PO SCH (20:54)
[2020-11-30] MEDS: MoRPHine SULFATE 4 MG/ML 1 ML CARP\\VIAL IV PRN ×6 (04:35→23:49)
[2020-11-30] MEDS: LACTATED RINGER'S 1,000 ML IV SCH ×3 (05:15→22:05)
[2020-11-30] MEDS: DICLOFENAC SOD 1% GEL 100 GM TUBE EXT SCH ×4 (08:03→21:28)
[2020-11-30] MEDS: HYDROXYUREA 500 MG CAP PO SCH ×2 (08:04→21:29)
[2020-11-30] MEDS: SENNA 8.6 MG TAB PO SCH (08:04)
[2020-11-30] MEDS: PANTOprazole 40 MG TAB PO SCH ×2 (08:04→21:29)
[2020-11-30] MEDS: SUCRALFATE 1 GM TAB PO SCH ×4 (08:04→21:28)
[2020-11-30] MEDS: TAPENTADOL HCL ER 50 MG TABCR PO SCH ×2 (08:06→21:28)
[2020-11-30 09:13] LABS: Basophils # (auto) 0.03 K/uL (0-0.2); Basophils % (auto) 0.4 %; Eosinophils # (auto) 0.21 K/uL (0-0.5); Eosinophils % (auto) 3.1 %; Hemoglobin 8.7 g/dL (12.0-16.0); Immature Granulocytes # (auto) 0.03 K/uL (0.00-0.02); Immature Granulocytes % (auto) 0.4 %; Lymphocytes % (auto) 36.9 %; Mean Corpuscular Hemoglobin 36.3 pg (25-34); Mean Corpuscular Hgb Conc 36.3 g/dL (32-36); Mean Platelet Volume 9.2 fL (7.4-10.4); Monocytes # (auto) 0.42 K/uL (0.11-0.59); Monocytes % (auto) 6.2 %; Neutrophils # (auto) 3.59 K/uL (1.4-6.5); Nucleated RBC # (auto) 0.21 K/uL (0-0); Nucleated RBC % (auto) 3.2 %; Platelet Count 290 K/uL (130-400); RDW Coefficient of Variation 18.7 % (11.5-14.5); RDW Standard Deviation 68.5 fL (36.4-46.3); White Blood Count 6.78 K/uL (4.8-10.8)
[2020-11-30 09:34] LABS: Anisocytosis Present; Poikilocytosis Present; Polychromasia 1+; Sickle Cells Occasional; Target Cells 1+
[2020-11-30 09:43] LABS: Alanine Aminotransferase 20 U/L (12-78); Albumin Level 3.3 gm/dl (3.4-5.0); Aspartate Aminotransferase 28 U/L (15-37); BUN Creatinine Ratio 11.4 (10-20); Blood Urea Nitrogen 6 mg/dl (7-18); Calcium 9.1 mg/dl (8.5-10.1); Carbon Dioxide 29 mmol/L (21-32); Chloride 105 mmol/L (98-107); Creatinine Clr Calc Pharmacy 177.8 ml/min; Est GFR (African American) > 150.0 ml/min; Est GFR (Non-African American) 136.5 ml/min; Glucose 91 mg/dl (70-99); Potassium 3.6 mmol/L (3.5-5.1); Sodium 140 mmol/L (136-145)
[2020-11-30 09:46] LABS: Albumin Globulin Ratio 0.9 (0.9-2); Alkaline Phosphatase 68 U/L (45-117); Globulin 3.8 gm/dl (2.5-4.0); Total Protein 7.1 gm/dl (6.4-8.2)
[2020-11-30] MEDS ORDERED: MoRPHine SULFATE 4 MG/ML 1 ML CARP\\VIAL IV STA (15:44)
--- NOTE | 2020-11-30 19:36 | Hospitalist Progress Note ---
Date of Service November 30, 2020 Assessment & Plan (1) Sickle cell crisis: Plan: Chronic/complicated situation where she has very real sickle cell crisis pain, but also a degree of chronic pain neurophysiology given how frequently/how often she was in crisis for quite a while. Further, while it is probably significantly less on the Nucynta, there was also likely component of narcotics-induced hyperalgesia complicating the pain situation further. -Symptoms are improving, bili trended back downI suspect she is improving -Suspect the worsening of the sickle cell probably did come with the change in the weather, it is unfortunate that her roommate insists on keeping the apartment cold whenever it can actually lead to real, and significant fallout for the patient -IV fluids, pain control. Right now requiring IV morphine for pain control. Continue for now, hopefully home in the next few days -We will discuss further with patient in regards to the long and short acting medicinesit is possible that she thought they were different doses of short acting, rather than different formulations for duration of action. In that respect, clarifying her chronic pain regimen may also help. -Despite her current hospitalization, it is reassuring that she has actually been out of the hospital as it relates to her sickle cell and pain for almost 3 months (2) Avascular necrosis of bone of hip: Plan: While she is having diffuse whole body pain, consistent with her sickle cell crises, she also has much more focused pain in the left hip, as well as the low back. Unfortunately on x-ray it appears that her avascular necrosis has progressedto the point that orthopedics feels a tertiary orthopedics eval would be quite reasonable, and she may need arthroplasty in the near future. Further, as biomechanical fallout from the worsening hip arthritisand undoubtedly a change in her gait mechanicsshe examines consistent with pelvic somatic dysfunctionparticularly in the region of the piriformiswhich is likely the cause of her low back pain. Continue to manage the hip pain with pain medicines as possible, PT eval and treat and crutch training, plan on outpatient tertiary orthopedics evaluation, and treat biomechanical problems as possible. (3) Somatic dysfunction of pelvis region: Plan: OMT done as above again today, stretches reiterated to patient (4) Depression: Plan: Continue duloxetine and olanzipine, currently seems to be reasonably stable de spite her flareup of pain (5) Borderline personality disorder: Plan: Has not really been an active issue in her medical care in quite some time. While I would defer to psychiatric expertise in truly making the diagnosis, I question of some of her borderline features are and even just frustration with her chronic pain situation, as well as some family turmoil that causes anxiety and distress (6) GERD (gastroesophageal reflux disease): Plan: continue Protonix 40mg PO daily (7) Psychogenic nonepileptic seizure: Plan: Continue reassurance, anxiety management, pain controlif an episode were to occur, generally she is safe during them, would just observe to ensure that she does not end up in any potentially harmful situation (8) Opioid-induced hyperalgesia: Plan: Now more mitigated after transition to Nucynta, continue to follow (9) Hyperbilirubinemia: Plan: Dropped back down to 2 (10) DVT prophylaxis: Plan: Lovenox Admission and Anticipated Discharge Date Admission Date: November 26, 2020 Subjective Still having a good bit of diffuse pain. Pain meds are helping some though and she feels like maybe she is starting to improve a little bit. Hip pain probably a little bit better, although she definitely noted that doing stretching maneuvers was uncomfortable when being done. Worked with therapy. Feels like she is getting better but not quite to the point of being able to think about life outside the hospital yet. Review of Systems Review of Systems: All systems reviewed & are unremarkable except as noted in HPI & below Physical Exam Physical Exam: In general she is awake and alert pleasant somewhat fatigued. No distress. HEENT normocephalic atraumatic mucous membranes moist. Breathing unlabored no accessory muscle use good effort. Skin shows no rashes no pallor or icterus. Neuro without focal deficits. Musculoskeletal/osteopathic shows left greater than right but bilateral hip external rotators high in tone, tender, decreased range of motionpost isometric relaxation done x3 repetitions eachbetter range of motion, patient tolerated well. Of note, subjectively her right hip seems to move about 50% further/easier than yesterday, left hip about 10% better/further. Patient tolerated well Results & Data Results & Data ([facility]) Vital Signs (Past 12 Hours) Vital Signs Temp Pulse Resp BP Pulse Ox 11/30/20 15:45 98.2 F 83 16 115/73 96 PG Care Time/CCT Total # of Minutes Spent Total Time Spent with Patient: Total time spent is greater than 50% in coordination of care (as documented) at patient's floor/unit and/or counseling patient: Coding Level of Care Code 65364 Subseq Hosp Care Lvl 3 Diagnoses Sickle cell crisis D57.00 Avascular necrosis of bone of hip M87.059 Somatic dysfunction of pelvis region M99.05 Depression F33.2 Active/Remission status: currently active Depression Type: major depressive disorder Major depression episode severity: severe Major depression recurrence: recurrent Psychotic features: without psychotic features Borderline personality disorder F60.3 GERD (gastroesophageal reflux disease) K21.9 Esophagitis presence: esophagitis presence not specified Psychogenic nonepileptic seizure F44.5 Opioid-induced hyperalgesia R20.8; T40.2X5A Hyperbilirubinemia E80.6 DVT prophylaxis Z29.9 CPT Codes Musculoskeletal - Musculoskeletal: [id number] 1-2 Body regions ([id number]) (1) Depression Active/Remission status: currently active Depression Type: major depressive disorder Major depression episode severity: severe Major depression recurrence: recurrent Psychotic features: without psychotic features Qualified Code(s): F33.2 - Major depressive disorder, recurrent severe without psychotic features (2) GERD (gastroesophageal reflux disease) Esophagitis presence: esophagitis presence not specified Qualified Code(s): K21.9 - Gastro-esophageal reflux disease without esophagitis
[2020-11-30] MEDS: OLANZapine 5 MG TABLET PO SCH (21:29)
[2020-11-30] MEDS: FOLIC ACID 1 MG TAB PO SCH (21:29)
[2020-11-30] MEDS: DULoxetine HCL 60 MG CAP PO SCH (21:29)
[2020-11-30] MEDS: ENOXAPARIN INJ 40 MG/0.4 ML SYR SQ SCH (21:30)
[2020-12-01] MEDS: MoRPHine SULFATE 4 MG/ML 1 ML CARP\\VIAL IV PRN ×10 (01:45→22:25)
[2020-12-01] MEDS: LACTATED RINGER'S 1,000 ML IV SCH ×3 (06:07→22:25)
[2020-12-01] MEDS: PANTOprazole 40 MG TAB PO SCH ×2 (09:35→20:09)
[2020-12-01] MEDS: SENNA 8.6 MG TAB PO SCH (09:35)
[2020-12-01] MEDS: SUCRALFATE 1 GM TAB PO SCH ×4 (09:35→20:09)
[2020-12-01] MEDS: DICLOFENAC SOD 1% GEL 100 GM TUBE EXT SCH ×4 (09:35→20:09)
[2020-12-01] MEDS: HYDROXYUREA 500 MG CAP PO SCH ×2 (09:35→20:09)
[2020-12-01] MEDS: TAPENTADOL HCL ER 50 MG TABCR PO SCH ×2 (09:40→20:08)
--- NOTE | 2020-12-01 18:56 | Hospitalist Progress Note ---
Date of Service December 01, 2020 Assessment & Plan (1) Sickle cell crisis: Plan: Chronic/complicated situation where she has very real sickle cell crisis pain, but also a degree of chronic pain neurophysiology given how frequently/how often she was in crisis for quite a while. Further, while it is probably significantly less on the Nucynta, there was also likely component of narcotics-induced hyperalgesia complicating the pain situation further. -Symptoms are improving, bili trended back downslowly improving -Suspect the worsening of the sickle cell probably did come with the change in the weather, it is unfortunate that her roommate insists on keeping the a partment cold whenever it can actually lead to real, and significant fallout for the patient -IV fluids, pain control. Right now requiring IV morphine for pain control. Continue for now, hopefully home in the next few days -We will discuss further with patient in regards to the long and short acting medicinesit is possible that she thought they were different doses of short acting, rather than different formulations for duration of action. In that respect, clarifying her chronic pain regimen may also help. -Despite her current hospitalization, it is reassuring that she has actually been out of the hospital as it relates to her sickle cell and pain for almost 3 months -slowly improving (2) Avascular necrosis of bone of hip: Plan: While she is having diffuse whole body pain, consistent with her sickle cell crises, she also has much more focused pain in the left hip, as well as the low back. Unfortunately on x-ray it appears that her avascular necrosis has progressedto the point that orthopedics feels a tertiary orthopedics eval would be quite reasonable, and she may need arthroplasty in the near future. Further, as biomechanical fallout from the worsening hip arthritisand undoubtedly a change in her gait mechanicsshe examines consistent with pelvic somatic dysfunctionparticularly in the region of the piriformiswhich is likely the cause of her low back pain. Continue to manage the hip pain with pain medicines as possible, PT eval and treat and crutch training, plan on outpatient tertiary orthopedics evaluation, and treat biomechanical problems as possible. (3) Somatic dysfunction of pelvis region: Plan: OMT done several times thus far with iprovement. held off today. (4) Depression: Plan: Continue duloxetine and olanzipine, currently seems to be reasonably stable despite her flareup of pain (5) Borderline personality disorder: Plan: Has not really been an active issue in her medical care in quite some time. While I would defer to psychiatric expertise in truly making the diagnosis, I question of some of her borderline features are and even just frustration with her chronic pain situation, as well as some family turmoil that causes anxiety and distress (6) GERD (gastroesophageal reflux disease): Plan: continue Protonix 40mg PO daily (7) Psychogenic nonepileptic seizure: Plan: Continue reassurance, anxiety management, pain controlif an episode were to occur, generally she is safe during them, would just observe to ensure that she does not end up in any potentially harmful situation (8) Opioid-induced hyperalgesia: Plan: Now more mitigated after transition to Nucynta, continue to follow (9) Hyperbilirubinemia: Plan: Dropped back down to 2 (10) DVT prophylaxis: Plan: Lovenox Admission and Anticipated Discharge Date Admission Date: November 26, 2020 Subjective continues to feel a little better each day. hip pain ongoing. takes a walk - able to make a loop around the halls, but ~2/3 through she starts to limp more. wonders about something to help sleep. she usually sleeps OK at home but not well here. doens't remember why but remembers something bad w trazodone Review of Systems Review of Systems: All systems reviewed & are unremarkable except as noted in HPI & below Physical Exam Physical Exam: gen aaox3 pleasant nad heent nc at mmm breathing unlabored no accessory muscles good effort skin no rashes no pallor or icterus. gait slow w limp, makes it 2/3 fairly steady then quickly slows with more apparent pain over last 1/3 Results & Data Results & Data ([facility]) Vital Signs (Past 12 Hours) Vital Signs Temp Pulse Resp BP Pulse Ox 12/01/20 15:19 98.6 F 91 H 16 125/82 95 PG Care Time/CCT Total # of Minutes Spent Total Time Spent with Patient: Total time spent is greater than 50% in coordination of care (as documented) at patient's floor/unit and/or counseling patient: Coding Level of Care Code 60112 Subseq Hosp Care Lvl 3 Diagnoses Sickle cell crisis D57.00 Avascular necrosis of bone of hip M87.059 Somatic dysfunction of pelvis region M99.05 Depression F33.2 Active/Remission status: currently active Depression Type: major depressive disorder Major depression episode severity: severe Major depression recurrence: recurrent Psychotic features: without psychotic features Borderline personality disorder F60.3 GERD (gastroesophageal reflux disease) K21.9 Esophagitis presence: esophagitis presence not specified Psychogenic nonepileptic seizure F44.5 Opioid-induced hyperalgesia R20.8; T40.2X5A Hyperbilirubinemia E80.6 DVT prophylaxis Z29.9 (1) Depression Active/Remission status: currently active Depression Type: major depressive disorder Major depression episode severity: severe Major depression recurrence: recurrent Psychotic features: without psychotic features Qualified Code(s): F33.2 - Major depressive disorder, recurrent severe without psychotic features (2) GERD (gastroesophageal reflux disease) Esophagitis presence: esophagitis presence not specified Qualified Code(s): K21.9 - Gastro-esophageal reflux disease without esophagitis
[2020-12-01] MEDS ORDERED: MELATONIN 3 MG TAB PO PRN (19:14)
[2020-12-01] MEDS: diphenhydrAMINE Capsule 25 MG CAP PO SCH (20:07)
[2020-12-01] MEDS: DULoxetine HCL 60 MG CAP PO SCH (20:09)
[2020-12-01] MEDS: FOLIC ACID 1 MG TAB PO SCH (20:09)
[2020-12-01] MEDS: ENOXAPARIN INJ 40 MG/0.4 ML SYR SQ SCH (20:10)
[2020-12-01] MEDS: OLANZapine 5 MG TABLET PO SCH (21:17)
[2020-12-02] MEDS: MoRPHine SULFATE 4 MG/ML 1 ML CARP\\VIAL IV PRN ×9 (00:24→23:42)
[2020-12-02] MEDS: LACTATED RINGER'S 1,000 ML IV SCH ×3 (05:36→21:00)
[2020-12-02] MEDS: DICLOFENAC SOD 1% GEL 100 GM TUBE EXT SCH ×4 (09:08→20:59)
[2020-12-02] MEDS: SUCRALFATE 1 GM TAB PO SCH ×4 (09:09→21:01)
[2020-12-02] MEDS: HYDROXYUREA 500 MG CAP PO SCH ×2 (09:09→21:02)
[2020-12-02] MEDS: SENNA 8.6 MG TAB PO SCH (09:09)
[2020-12-02] MEDS: PANTOprazole 40 MG TAB PO SCH ×2 (09:09→21:00)
[2020-12-02] MEDS: TAPENTADOL HCL ER 50 MG TABCR PO SCH ×2 (09:15→21:10)
--- NOTE | 2020-12-02 17:01 | Hospitalist Progress Note ---
Date of Service December 02, 2020 Assessment & Plan (1) Sickle cell crisis: Plan: Chronic/complicated situation where she has very real sickle cell crisis pain, but also a degree of chronic pain neurophysiology given how frequently/how often she was in crisis for quite a while. Further, while it is probably significantly less on the Nucynta, there was also likely component of narcotics-induced hyperalgesia complicating the pain situation further. -Symptoms are improving, bili trended back downslowly improving -Suspect the worsening of the sickle cell probably did come with the change in the weather, it is unfortunate that her roommate insists on keeping the a partment cold whenever it can actually lead to real, and significant fallout for the patient -IV fluids, pain control. Right now requiring IV morphine for pain control. Continue for now, hopefully home in the next few daysbut today does not appear that her symptoms are well enough controlled to transition to p.o./work towards home -We will discuss further with patient in regards to the long and short acting medicinesit is possible that she thought they were different doses of short acting, rather than different formulations for duration of action. In that respect, clarifying her chronic pain regimen may also help. -Despite her current hospitalization, it is reassuring that she has actually been out of the hospital as it relates to her sickle cell and pain for almost 3 months -Appears to still be slowly improving (2) Avascular necrosis of bone of hip: Plan: While she is having diffuse whole body pain, consistent with her sickle cell crises, she also has much more focused pain in the left hip, as well as the low back. Unfortunately on x-ray it appears that her avascular necrosis has progressedto the point that orthopedics feels a tertiary orthopedics eval would be quite reasonable, and she may need arthroplasty in the near future. Further, as biomechanical fallout from the worsening hip arthritisand undoubtedly a change in her gait mechanicsshe examines consistent with pelvic somatic dysfunctionparticularly in the region of the piriformiswhich is likely the cause of her low back pain. Continue to manage the hip pain with pain medicines as possible, PT eval and treat and crutch training, plan on outpatient tertiary orthopedics evaluation, and treat biomechanical problems as possible. Continue ongoing managementwould likely benefit from OMT as an outpatient (3) Somatic dysfunction of pelvis region: Plan: OMT done several times thus far with improvement. Would likely benefit from ongoing OMT as an outpatient (4) Depression: Plan: Continue duloxetine and olanzipine, currently seems to be reasonably stable despite her flareup of pain (5) Borderline personality disorder: Plan: Has not really been an active issue in her medical care in quite some time. While I would defer to psychiatric expertise in truly making the diagnosis, I question of some of her borderline features are and even just frustration with her chronic pain situation, as well as some family turmoil that causes anxiety and distress (6) GERD (gastroesophageal reflux disease): Plan: continue Protonix 40mg PO daily (7) Psychogenic nonepileptic seizure: Plan: Continue reassurance, anxiety management, pain controlif an episode were to occur, generally she is safe during them, would just observe to ensure that she does not end up in any potentially harmful situation (8) Opioid-induced hyperalgesia: Plan: Now more mitigated after transition to Nucynta, continue to follow (9) Hyperbilirubinemia: Plan: Dropped back down to 2 (10) DVT prophylaxis: Plan: Lovenox Admission and Anticipated Discharge Date Admission Date: November 26, 2020 Subjective Tired, but notes that the Benadryl did help her sleep. Pain probably about the same. No other new complaints Review of Systems Review of Systems: All systems reviewed & are unremarkable except as noted in HPI & below Physical Exam Physical Exam: Fatigued, but awake and alert pleasant. HEENT normocephalic atraumatic mucous membranes moist. Breathing unlabored no accessory muscle use good effort. Skin shows no rashes no pallor or icterus. Neuro without focal deficits. Mental status intact. Results & Data Results & Data ([facility]) Vital Signs (Past 12 Hours) Vital Signs Temp Pulse Resp BP Pulse Ox 12/02/20 15:26 98.2 F 77 16 108/69 96 12/02/20 07:38 98.2 F 76 16 105/58 L 94 PG Care Time/CCT Total # of Minutes Spent Total Time Spent with Patient: Total time spent is greater than 50% in c oordination of care (as documented) at patient's floor/unit and/or counseling patient: Coding Level of Care Code 61511 Subseq Hosp Care Lvl 3 Diagnoses Sickle cell crisis D57.00 Avascular necrosis of bone of hip M87.059 Somatic dysfunction of pelvis region M99.05 Depression F33.2 Active/Remission status: currently active Depression Type: major depressive disorder Major depression episode severity: severe Major depression recurrence: recurrent Psychotic features: without psychotic features Borderline personality disorder F60.3 GERD (gastroesophageal reflux disease) K21.9 Esophagitis presence: esophagitis presence not specified Psychogenic nonepileptic seizure F44.5 Opioid-induced hyperalgesia R20.8; T40.2X5A Hyperbilirubinemia E80.6 DVT prophylaxis Z29.9 (1) Depression Active/Remission status: currently active Depression Type: major depressive disorder Major depression episode severity: severe Major depression recurrence: recurrent Psychotic features: without psychotic features Qualified Code(s): F33.2 - Major depressive disorder, recurrent severe without psychotic features (2) GERD (gastroesophageal reflux disease) Esophagitis presence: esophagitis presence not specified Qualified Code(s): K21.9 - Gastro-esophageal reflux disease without esophagitis
[2020-12-02] MEDS: ENOXAPARIN INJ 40 MG/0.4 ML SYR SQ SCH (20:59)
[2020-12-02] MEDS: FOLIC ACID 1 MG TAB PO SCH (21:00)
[2020-12-02] MEDS: diphenhydrAMINE Capsule 25 MG CAP PO SCH (21:01)
[2020-12-02] MEDS: DULoxetine HCL 60 MG CAP PO SCH (21:01)
[2020-12-02] MEDS: OLANZapine 5 MG TABLET PO SCH (21:02)
[2020-12-03] MEDS: MoRPHine SULFATE 4 MG/ML 1 ML CARP\\VIAL IV PRN ×7 (03:43→21:59)
[2020-12-03] MEDS: TAPENTADOL HCL 50 MG TAB PO PRN ×2 (04:48→09:46)
[2020-12-03] MEDS: LACTATED RINGER'S 1,000 ML IV SCH ×3 (04:49→21:00)
[2020-12-03 06:59] LABS: Basophils # (auto) 0.04 K/uL (0-0.2); Basophils % (auto) 0.7 %; Eosinophils # (auto) 0.12 K/uL (0-0.5); Eosinophils % (auto) 2.1 %; Hematocrit (blood only) 23.7 % (37-47); Hemoglobin 8.6 g/dL (12.0-16.0); Immature Granulocytes # (auto) 0.03 K/uL (0.00-0.02); Immature Granulocytes % (auto) 0.5 %; Lymphocytes # (auto) 2.62 K/uL (1.2-3.4); Lymphocytes % (auto) 46.3 %; Mean Corpuscular Hemoglobin 37.1 pg (25-34); Mean Corpuscular Hgb Conc 36.3 g/dL (32-36); Mean Corpuscular Volume 102.2 fL (80-100); Mean Platelet Volume 9.2 fL (7.4-10.4); Monocytes # (auto) 0.26 K/uL (0.11-0.59); Monocytes % (auto) 4.6 %; Neutrophils # (auto) 2.59 K/uL (1.4-6.5); Neutrophils % (auto) 45.8 %; Nucleated RBC # (auto) 0.21 K/uL (0-0); Nucleated RBC % (auto) 3.7 %; Platelet Count 281 K/uL (130-400); RDW Coefficient of Variation 19.4 % (11.5-14.5); RDW Standard Deviation 71.9 fL (36.4-46.3); Red Blood Count 2.32 M/uL (4.2-5.4); White Blood Count 5.66 K/uL (4.8-10.8)
[2020-12-03 07:18] LABS: Alanine Aminotransferase 34 U/L (12-78); Albumin Level 3.4 gm/dl (3.4-5.0); Aspartate Aminotransferase 50 U/L (15-37); BUN Creatinine Ratio 11.7 (10-20); Blood Urea Nitrogen 7 mg/dl (7-18); Calcium 9.1 mg/dl (8.5-10.1); Carbon Dioxide 27 mmol/L (21-32); Chloride 106 mmol/L (98-107); Creatinine Clr Calc Pharmacy 161.9 ml/min; Est GFR (African American) > 150.0 ml/min; Est GFR (Non-African American) 132.4 ml/min; Glucose 90 mg/dl (70-99); Potassium 3.7 mmol/L (3.5-5.1); Sodium 137 mmol/L (136-145)
[2020-12-03 07:21] LABS: Albumin Globulin Ratio 0.8 (0.9-2); Alkaline Phosphatase 74 U/L (45-117); Bilirubin,Total 2.1 mg/dl (0.2-1); Globulin 4.1 gm/dl (2.5-4.0); Total Protein 7.5 gm/dl (6.4-8.2)
[2020-12-03 07:27] LABS: Anisocytosis Present; Polychromasia 1+; Sickle Cells 2+; Target Cells 2+
[2020-12-03] MEDS: HYDROXYUREA 500 MG CAP PO SCH ×2 (09:45→21:58)
[2020-12-03] MEDS: SENNA 8.6 MG TAB PO SCH (09:46)
[2020-12-03] MEDS: TAPENTADOL HCL ER 50 MG TABCR PO SCH ×2 (09:46→21:58)
[2020-12-03] MEDS: SUCRALFATE 1 GM TAB PO SCH ×4 (09:47→23:04)
[2020-12-03] MEDS: PANTOprazole 40 MG TAB PO SCH ×2 (09:47→21:58)
[2020-12-03] MEDS: DICLOFENAC SOD 1% GEL 100 GM TUBE EXT SCH ×3 (09:48→17:14)
--- NOTE | 2020-12-03 20:14 | Hospitalist Progress Note ---
Date of Service December 03, 2020 Assessment & Plan (1) Sickle cell crisis: Plan: Chronic/complicated situation where she has very real sickle cell crisis pain, but also a degree of chronic pain neurophysiology given how frequently/how often she was in crisis for quite a while. Further, while it is probably significantly less on the Nucynta, there was also likely component of narcotics-induced hyperalgesia complicating the pain situation further. -Symptoms are improving, bili trended back downslowly improving -Suspect the worsening of the sickle cell probably did come with the change in the weather, it is unfortunate that her roommate insists on keeping the a partment cold whenever it can actually lead to real, and significant fallout for the patient -IV fluids, pain control. Right now still requiring IV morphine for pain control. Continue for now, hopefully home in the next few daysbut today does not appear that her symptoms are well enough controlled to transition to p.o./work towards home -We will discuss further with patient in regards to the long and short acting medicinesit is possible that she thought they were different doses of short acting, rather than different formulations for duration of action. In that respect, clarifying her chronic pain regimen may also help. -Despite her current hospitalization, it is reassuring that she has actually been out of the hospital as it relates to her sickle cell and pain for almost 3 months -Appears to still be slowly improvinghopefully home soon (2) Avascular necrosis of bone of hip: Plan: While she is having diffuse whole body pain, consistent with her sickle cell crises, she also has much more focused pain in the left hip, as well as the low back. Unfortunately on x-ray it appears that her avascular necrosis has p rogressedto the point that orthopedics feels a tertiary orthopedics eval would be quite reasonable, and she may need arthroplasty in the near future. Further, as biomechanical fallout from the worsening hip arthritisand undoubtedly a change in her gait mechanicsshe examines consistent with pelvic somatic dysfunctionparticularly in the region of the piriformiswhich is likely the cause of her low back pain. Continue to manage the hip pain with pain medicines as possible, PT eval and treat and crutch training, plan on outpatient tertiary orthopedics evaluation, and treat biomechanical problems as possible. Continue ongoing managementwould likely benefit from OMT as an outpatient. Is encouraging that she is walking better with less pain (3) Somatic dysfunction of pelvis region: Plan: OMT done several times thus far with improvement. Would likely benefit from ongoing OMT as an outpatient (4) Depression: Plan: Continue duloxetine and olanzipine, currently seems to be reasonably stable despite her flareup of pain (5) Borderline personality disorder: Plan: Has not really been an active issue in her medical care in quite some time. While I would defer to psychiatric expertise in truly making the diagnosis, I question of some of her borderline features are and even just frustration with her chronic pain situation, as well as some family turmoil that causes anxiety and distress (6) GERD (gastroesophageal reflux disease): Plan: continue Protonix 40mg PO daily (7) Psychogenic nonepileptic seizure: Plan: Continue reassurance, anxiety management, pain controlif an episode were to occur, generally she is safe during them, would just observe to ensure that she does not end up in any potentially harmful situation (8) Opioid-induced hyperalgesia: Plan: Now more mitigated after transition to Nucynta, continue to follow (9) Hyperbilirubinemia: Plan: Dropped back down to 2 (10) DVT prophylaxis: Plan: Lovenox Plan: Mild eustachian tube dysfunctiontaught self OMT, encouraged gum chewing Admission and Anticipated Discharge Date Admission Date: November 26, 2020 Subjective Generally feeling more malaise than pain. Some hip pain, but walked the halls and did a little bit better than before. Chest pain seems to be responding nicely to Voltaren gel. Biggest complaint is the malaise and some depression. She is not quite sure if she feels up to going home yet, but feels like she is getting there. Also feels like something is in her right ear Review of Systems Review of Systems: All systems reviewed & are unremarkable except as noted in HPI & below Physical Exam Physical Exam: In general she is awake and alert pleasant no distress. HEENT normocephalic atraumatic mucous membranes moist. Breathing unlabored no accessory muscle use good effort. Skin shows no rashes no pallor or icterus. Neuro without focal deficits. Right ear with a little bit of a clear effusion with a few bubbles behind the tympanic membrane, left may be with a milder effusion no bubbles, no erythema, no foreign bodies, not even really any wax in the canal. Results & Data Results & Data ([facility]) Vital Signs (Past 12 Hours) Vital Signs Temp Pulse Resp BP Pulse Ox 12/03/20 15:32 98.4 F 83 16 94/61 L 96 PG Care Time/CCT Total # of Minutes Spent Total Time Spent with Patient: Total time spent is greater than 50% in coordination of care (as documented) at patient's floor/unit and/or counseling patient: Coding Level of Care Code 47425 Subseq Hosp Care Lvl 3 Diagnoses Sickle cell crisis D57.00 Avascular necrosis of bone of hip M87.059 Somatic dysfunction of pelvis region M99.05 Depression F33.2 Active/Remission status: currently active Depression Type: major depressive disorder Major depression episode severity: severe Major depression recurrence: recurrent Psychotic features: without psychotic features Borderline personality disorder F60.3 GERD (gastroesophageal reflux disease) K21.9 Esophagitis presence: esophagitis presence not specified Psychogenic nonepileptic seizure F44.5 Opioid-induced hyperalgesia R20.8; T40.2X5A Hyperbilirubinemia E80.6 DVT prophylaxis Z29.9 (1) Depression Active/Remission status: currently active Depression Type: major depressive disorder Major depression episode severity: severe Major depression recurrence: recurrent Psychotic features: without psychotic features Qualified Code(s): F33.2 - Major depressive disorder, recurrent severe without psychotic features (2) GERD (gastroesophageal reflux disease) Esophagitis presence: esophagitis presence not specified Qualified Code(s): K21.9 - Gastro-esophageal reflux disease without esophagitis
[2020-12-03] MEDS: OLANZapine 5 MG TABLET PO SCH (21:58)
[2020-12-03] MEDS: FOLIC ACID 1 MG TAB PO SCH (21:58)
[2020-12-03] MEDS: diphenhydrAMINE Capsule 25 MG CAP PO SCH (21:58)
[2020-12-03] MEDS: DULoxetine HCL 60 MG CAP PO SCH (21:58)
[2020-12-03] MEDS: ENOXAPARIN INJ 40 MG/0.4 ML SYR SQ SCH (22:01)
[2020-12-04] MEDS: MoRPHine SULFATE 4 MG/ML 1 ML CARP\\VIAL IV PRN ×10 (00:08→23:41)
[2020-12-04] MEDS: DICLOFENAC SOD 1% GEL 100 GM TUBE EXT SCH ×5 (00:09→20:38)
[2020-12-04] MEDS: LACTATED RINGER'S 1,000 ML IV SCH ×3 (04:50→20:50)
--- NOTE | 2020-12-04 08:17 | Hospitalist Progress Note ---
Date of Service December 04, 2020 Assessment & Plan (1) Sickle cell anemia: Plan: James Early is a 20-year-old female with PMH of sickle cell disease, chronic pain, borderline personality, anxiety, depression, nonepileptic pseudoseizures, GERD, sleep disturbances who is admitted to [facility] due to sickle cell pain crisis. Sickle cell crisis: -hgb stable in high 8s since 11/28 - Continue with LR @ 125ml/hour - Continue IV morphine prn for pain control -- encouraged to use IV only if needed as she will ultimately use PO if not admitted - Continue Nucynta ER 100mg BID scheduled - Also has Nucynta IR 50mg PO q4h PRN -- using IV morphine more often at this point - Continue Hydroxyurea 1000mg PO BID Avascular necrosis of bone of hip: - Has focused pain in the left hip, as well as the low back. - Hip XR: Redemonstration of the bilateral femoral head avascular necrosis, left greater than right. Subacute subchondral fracture of the left femoral head with mild impaction. - Ortho recs for eval at a tertiary center, may need arthroplasty in the near future. - Pain management as above - PT eval and treat and crutch training - Plan for outpatient ortho f/u Opioid-induced hyperalgesia: - as above - seen by pain management in 08/07 Depression/Borderline Personality Disorder - continue duloxetine and olanzipine GERD (gastroesophageal reflux disease): - continue Protonix 40mg PO daily Psychogenic nonepileptic seizure: - Usually occurs with stressful events - Continue reassurance, anxiety management, pain control Hyperbilirubinemia: - Stable on most recent checks - Has chronically elevated bilirubin - No RUQ symptoms - Continue to monitor DVT: Lovenox Code: Full Diet: Regular Dispo: MedSurg Admission and Anticipated Discharge Date Admission Date: November 26, 2020 Supervising Physician Co-Signing Physician Notes Resident Physician Supervision Note: I independently interviewed and examined the patient and verified the amaro history and physical, reviewed labs and image studies and agree with resident Dr. Myles findings and care plan. Subjective No acute events overnight. Reports continued pain, requiring regular use of IV morphine. Otherwise denies nausea, vomiting, shortness of breath, fever, chills. Review of Systems Review of Systems: per HPI Physical Exam Physical Exam: GENERAL: A&Ox3. NAD. CHEST/LUNGS: CTAB A/P. No crackles, wheezes, rales, rhonchi. HEART: RRR. No m/g/r. No carotid bruits. ABDOMEN: NT/ND, soft. BS+ x4 EXTREMITIES: No cyanosis, no clubbing, no edema SKIN: Warm and dry. No rashes or lesions. PSYCHIATRIC: Euthymic affect, no SI, no pressured speech, no hallucinations Results & Data Results & Data ([facility]) Vital Signs (Past 12 Hours) Vital Signs Temp Pulse Resp BP Pulse Ox 12/04/20 06:30 37 C 89 16 104/70 98 12/03/20 23:45 36.8 C 91 H 16 113/72 96 Resident Activity Tracking Resident Involvement: Resident Care Provided Care Provided: Adult Hospital Medicine (1) Sickle cell anemia Sickle-cell associated disorders: with unspecified crisis Qualified Code(s): D57.00 - Hb-SS disease with crisis, unspecified
[2020-12-04] MEDS: SUCRALFATE 1 GM TAB PO SCH ×4 (09:12→20:39)
[2020-12-04] MEDS: HYDROXYUREA 500 MG CAP PO SCH ×2 (09:13→20:39)
[2020-12-04] MEDS: PANTOprazole 40 MG TAB PO SCH ×2 (09:13→20:40)
[2020-12-04] MEDS: SENNA 8.6 MG TAB PO SCH (09:13)
[2020-12-04] MEDS: TAPENTADOL HCL ER 50 MG TABCR PO SCH ×2 (09:16→20:44)
[2020-12-04] MEDS: DULoxetine HCL 60 MG CAP PO SCH (20:39)
[2020-12-04] MEDS: diphenhydrAMINE Capsule 25 MG CAP PO SCH (20:39)
[2020-12-04] MEDS: OLANZapine 5 MG TABLET PO SCH (20:40)
[2020-12-04] MEDS: FOLIC ACID 1 MG TAB PO SCH (20:40)
[2020-12-04] MEDS: ENOXAPARIN INJ 40 MG/0.4 ML SYR SQ SCH (20:41)
[2020-12-05] MEDS: MoRPHine SULFATE 4 MG/ML 1 ML CARP\\VIAL IV PRN ×9 (02:19→22:50)
[2020-12-05] MEDS: LACTATED RINGER'S 1,000 ML IV SCH ×3 (04:52→20:39)
--- NOTE | 2020-12-05 07:41 | Hospitalist Progress Note ---
Date of Service December 05, 2020 Assessment & Plan (1) Sickle cell anemia: Plan: James Early is a 20-year-old female with PMH of sickle cell disease, chronic pain, borderline personality, anxiety, depression, nonepileptic pseudoseizures, GERD, sleep disturbances who is admitted to [facility] due to sickle cell pain crisis. Sickle cell crisis: -hgb stable in high 8s since 11/28 - Continue with LR @ 125ml/hour - Continue IV morphine prn for pain control -- encouraged to use IV only if needed as she will ultimately use PO if not in hospital - Continue Nucynta ER 100mg BID scheduled - Also has Nucynta IR 50mg PO q4h PRN -- continues to use IV morphine more often, pain reportedly 7/10 - Continue Hydroxyurea 1000mg PO BID Avascular necrosis of bone of hip: - Has focused pain in the left hip, as well as the low back. - Hip XR: Redemonstration of the bilateral femoral head avascular necrosis, left greater than right. Subacute subchondral fracture of the left femoral head with mild impaction. - Ortho recs for eval at a tertiary center, may need arthroplasty in the near future. - Pain management as above - PT eval and treat and crutch training - Plan for outpatient ortho f/u Opioid-induced hyperalgesia: - as above - seen by pain management in 08/07 Depression/Borderline Personality Disorder - continue duloxetine and olanzipine GERD (gastroesophageal reflux disease): - continue Protonix 40mg PO daily Psychogenic nonepileptic seizure: - Usually occurs with stressful events - Continue reassurance, anxiety management, pain control Hyperbilirubinemia: - Stable on most recent checks - Has chronically elevated bilirubin - No RUQ symptoms - Continue to monitor DVT: Lovenox Code: Full Diet: Regular Dispo: MedSurg Admission and Anticipated Discharge Date Admission Date: November 26, 2020 Supervising Physician Co-Signing Physician Notes Resident Physician Supervision Note: I independently interviewed and examined the patient and verified the amaro history and physical, reviewed labs and image studies and agree with resident Dr. Myles findings and care plan. Subjective No acute events overnight. She is much more alert, awake, and talkative today but continues to report 7/10 pain. Continuing to require IV morphine, has not used the PRN IR Nucynta since 1017 AM. Denies n/v, fever, chills, SOB. Review of Systems Review of Systems: per HPI Physical Exam Physical Exam: GENERAL: A&Ox3. NAD. CHEST/LUNGS: CTAB A/P. No crackles, wheezes, rales, rhonchi. HEART: RRR. No m/g/r. No carotid bruits. ABDOMEN: NT/ND, soft. BS+ x4 EXTREMITIES: No cyanosis, no clubbing, no edema SKIN: Warm and dry. No rashes or lesions. PSYCHIATRIC: Euthymic affect, no SI, no pressured speech, no hallucinations Results & Data Results & Data ([facility]) Vital Signs (Past 12 Hours) Vital Signs Temp Pulse Resp BP Pulse Ox 12/05/20 07:32 36.6 C 77 16 111/75 99 12/04/20 22:22 36.7 C 85 16 121/78 96 Resident Activity Tracking Resident Involvement: Resident Care Provided Care Provided: Adult Hospital Medicine (1) Sickle cell anemia Sickle-cell associated disorders: with unspecified crisis Qualified Code(s): D57.00 - Hb-SS disease with crisis, unspecified
[2020-12-05 07:58] LABS: Basophils # (auto) 0.04 K/uL (0-0.2); Basophils % (auto) 0.8 %; Eosinophils # (auto) 0.16 K/uL (0-0.5); Eosinophils % (auto) 3.1 %; Hemoglobin 8.4 g/dL (12.0-16.0); Immature Granulocytes # (auto) 0.04 K/uL (0.00-0.02); Immature Granulocytes % (auto) 0.8 %; Lymphocytes # (auto) 2.55 K/uL (1.2-3.4); Lymphocytes % (auto) 49.6 %; Mean Corpuscular Hemoglobin 37.7 pg (25-34); Mean Corpuscular Hgb Conc 36.5 g/dL (32-36); Mean Corpuscular Volume 103.1 fL (80-100); Mean Platelet Volume 9.5 fL (7.4-10.4); Monocytes # (auto) 0.37 K/uL (0.11-0.59); Monocytes % (auto) 7.2 %; Neutrophils # (auto) 1.98 K/uL (1.4-6.5); Neutrophils % (auto) 38.5 %; Nucleated RBC # (auto) 0.31 K/uL (0-0); Platelet Count 278 K/uL (130-400); RDW Standard Deviation 74.9 fL (36.4-46.3); Red Blood Count 2.23 M/uL (4.2-5.4); White Blood Count 5.14 K/uL (4.8-10.8)
[2020-12-05 08:27] LABS: Anisocytosis Present; Poikilocytosis Present; Polychromasia 1+; Sickle Cells 1+; Target Cells 1+
[2020-12-05 08:33] LABS: BUN Creatinine Ratio 13.1 (10-20); Blood Urea Nitrogen 7 mg/dl (7-18); Calcium 8.7 mg/dl (8.5-10.1); Carbon Dioxide 26 mmol/L (21-32); Chloride 106 mmol/L (98-107); Creatinine Clr Calc Pharmacy 174.4 ml/min; Est GFR (African American) > 150.0 ml/min; Est GFR (Non-African American) 135.6 ml/min; Glucose 97 mg/dl (70-99); Magnesium 1.7 mg/dl (1.8-2.4); Phosphorus 4.4 mg/dl (2.5-4.9); Potassium 3.7 mmol/L (3.5-5.1); Sodium 137 mmol/L (136-145)
[2020-12-05] MEDS: SUCRALFATE 1 GM TAB PO SCH ×4 (09:24→22:52)
[2020-12-05] MEDS: HYDROXYUREA 500 MG CAP PO SCH ×2 (09:24→22:52)
[2020-12-05] MEDS: SENNA 8.6 MG TAB PO SCH (09:24)
[2020-12-05] MEDS: TAPENTADOL HCL ER 50 MG TABCR PO SCH ×2 (09:25→22:51)
[2020-12-05] MEDS: PANTOprazole 40 MG TAB PO SCH ×2 (09:25→22:52)
[2020-12-05] MEDS: DICLOFENAC SOD 1% GEL 100 GM TUBE EXT SCH ×4 (10:37→22:52)
[2020-12-05] MEDS: diphenhydrAMINE Capsule 25 MG CAP PO SCH (22:51)
[2020-12-05] MEDS: FOLIC ACID 1 MG TAB PO SCH (22:51)
[2020-12-05] MEDS: DULoxetine HCL 60 MG CAP PO SCH (22:52)
[2020-12-05] MEDS: ENOXAPARIN INJ 40 MG/0.4 ML SYR SQ SCH (22:52)
[2020-12-05] MEDS: OLANZapine 5 MG TABLET PO SCH (22:52)
[2020-12-06] MEDS: MoRPHine SULFATE 4 MG/ML 1 ML CARP\\VIAL IV PRN ×10 (00:41→23:49)
[2020-12-06] MEDS: LACTATED RINGER'S 1,000 ML IV SCH ×3 (04:52→21:50)
--- NOTE | 2020-12-06 07:52 | Hospitalist Progress Note ---
Date of Service December 06, 2020 Assessment & Plan (1) Sickle cell anemia: Plan: James Early is a 20-year-old female with PMH of sickle cell disease, chronic pain, borderline personality, anxiety, depression, nonepileptic pseudoseizures, GERD, sleep disturbances who is admitted to [facility] due to sickle cell pain crisis. Sickle cell crisis: - Hgb stable in high 8s since 11/28 - Continues to have pain - Continue with LR @ 125ml/hour - Continue IV morphine prn for pain control -- encouraged to use IV only if needed as she will ultimately use PO if not in hospital - Continue Nucynta ER 100mg BID scheduled - Also has Nucynta IR 50mg PO q4h PRN -- patient agrees to try oral prn meds today in anticipation of going home - Continue Hydroxyurea 1000mg PO BID Nasal congestion: - Start Flonase and nasal saline spray - Continue to monitor Avascular necrosis of bone of hip: - Has focused pain in the left hip, as well as the low back. - Hip XR: Redemonstration of the bilateral femoral head avascular necrosis, left greater than right. Subacute subchondral fracture of the left femoral head with mild impaction. - Ortho recs for eval at a tertiary center, may need arthroplasty in the near future. - Pain management as above - PT eval and treat and crutch training - Plan for outpatient ortho f/u Opioid-induced hyperalgesia: - as above - seen by pain management in 08/07 Depression/Borderline Personality Disorder - continue duloxetine and olanzipine GERD (gastroesophageal reflux disease): - continue Protonix 40mg PO daily Psychogenic nonepileptic seizure: - Usually occurs with stressful events - Continue reassurance, anxiety management, pain control Hyperbilirubinemia: - Stable on most recent checks - Has chronically elevated bilirubin - No RUQ symptoms - Continue to monitor DVT: Lovenox Code: Full Diet: Regular Dispo: MedSurg Admission and Anticipated Discharge Date Admission Date: November 26, 2020 Supervising Physician Co-Signing Physician Notes Resident Physician Supervision Note: I independently interviewed and examined the patient and verified the amaro history and physical, reviewed labs and image studies and agree with resident Dr. Myles findings and care plan. Subjective No acute events overnight. Patient seen at bedside this morning. Reports feeling somewhat better, rating her pain as a 6 out of 10 today. She reports that she thinks she might be ready to attempt transitioning to oral as needed pain medications later this evening or tomorrow morning. Complains of mild nasal congestion and throat feeling dry. Otherwise denies fever, chills, nausea, vomiting, constipation, palpitations, shortness of breath. Review of Systems Review of Systems: Per subjective Physical Exam Physical Exam: GENERAL: A&Ox3. NAD. CHEST/LUNGS: CTAB A/P. No crackles, wheezes, rales, rhonchi. HEART: RRR. No m/g/r. No carotid bruits. ABDOMEN: NT/ND, soft. BS+ x4 EXTREMITIES: No cyanosis, no clubbing, no edema SKIN: Warm and dry. No rashes or lesions. PSYCHIATRIC: Euthymic affect, no SI, no pressured speech, no hallucinations Results & Data Results & [facility] ([facility]) Vital Signs (Past 12 Hours) Vital Signs Temp Pulse Resp BP Pulse Ox 12/05/20 22:40 36.6 C 82 16 126/76 97 Resident Activity Tracking Resident Involvement: Resident Care Provided Care Provided: Adult Hospital Medicine (1) Sickle cell anemia Sickle-cell associated disorders: with unspecified crisis Qualified Code(s): D57.00 - Hb-SS disease with crisis, unspecified
[2020-12-06] MEDS: HYDROXYUREA 500 MG CAP PO SCH ×2 (09:10→21:37)
[2020-12-06] MEDS: DICLOFENAC SOD 1% GEL 100 GM TUBE EXT SCH ×4 (09:10→21:18)
[2020-12-06] MEDS: SENNA 8.6 MG TAB PO SCH (09:11)
[2020-12-06] MEDS: PANTOprazole 40 MG TAB PO SCH ×2 (09:11→21:37)
[2020-12-06] MEDS: TAPENTADOL HCL ER 50 MG TABCR PO SCH ×2 (09:11→21:36)
[2020-12-06] MEDS: SUCRALFATE 1 GM TAB PO SCH ×4 (09:11→21:36)
[2020-12-06] MEDS: FLUTICASONE PROPIONATE NA SPR 16 GM BTL SCH (11:02)
[2020-12-06] MEDS: MAGNESIUM SULFATE / D5W 1 GM/100 ML BAG IV SCH ×2 (17:36→19:31)
[2020-12-06] MEDS: MULTIVITAMIN TAB PO SCH (17:36)
[2020-12-06] MEDS: TAPENTADOL HCL 50 MG TAB PO PRN (21:05)
[2020-12-06] MEDS: ENOXAPARIN INJ 40 MG/0.4 ML SYR SQ SCH (21:18)
[2020-12-06] MEDS: OLANZapine 5 MG TABLET PO SCH (21:36)
[2020-12-06] MEDS: diphenhydrAMINE Capsule 25 MG CAP PO SCH (21:36)
[2020-12-06] MEDS: DULoxetine HCL 60 MG CAP PO SCH (21:37)
[2020-12-06] MEDS: FOLIC ACID 1 MG TAB PO SCH (21:37)
[2020-12-06] MEDS: SODIUM CHLORIDE 0.65% NA SOLN 45 ML (OCEAN) PRN (22:53)
[2020-12-07] MEDS: LACTATED RINGER'S 1,000 ML IV SCH ×5 (01:35→21:10)
[2020-12-07] MEDS: MoRPHine SULFATE 4 MG/ML 1 ML CARP\\VIAL IV PRN ×8 (06:59→22:48)
[2020-12-07] MEDS: FLUTICASONE PROPIONATE NA SPR 16 GM BTL SCH (09:30)
[2020-12-07] MEDS: SENNA 8.6 MG TAB PO SCH (09:30)
[2020-12-07] MEDS: TAPENTADOL HCL ER 50 MG TABCR PO SCH ×2 (09:30→20:47)
[2020-12-07] MEDS: SUCRALFATE 1 GM TAB PO SCH ×4 (09:30→20:49)
[2020-12-07] MEDS: PANTOprazole 40 MG TAB PO SCH ×2 (09:30→20:50)
[2020-12-07] MEDS: MULTIVITAMIN TAB PO SCH (09:30)
[2020-12-07] MEDS: DICLOFENAC SOD 1% GEL 100 GM TUBE EXT SCH ×4 (09:31→20:50)
[2020-12-07] MEDS: HYDROXYUREA 500 MG CAP PO SCH ×2 (09:31→20:48)
[2020-12-07 09:32] LABS: Basophils # (auto) 0.02 K/uL (0-0.2); Basophils % (auto) 0.4 %; Eosinophils # (auto) 0.17 K/uL (0-0.5); Eosinophils % (auto) 3.2 %; Hematocrit (blood only) 23.1 % (37-47); Hemoglobin 8.4 g/dL (12.0-16.0); Immature Granulocytes # (auto) 0.03 K/uL (0.00-0.02); Immature Granulocytes % (auto) 0.6 %; Lymphocytes # (auto) 2.48 K/uL (1.2-3.4); Lymphocytes % (auto) 46.1 %; Mean Corpuscular Hgb Conc 36.4 g/dL (32-36); Mean Corpuscular Volume 104.5 fL (80-100); Mean Platelet Volume 9.4 fL (7.4-10.4); Monocytes # (auto) 0.26 K/uL (0.11-0.59); Monocytes % (auto) 4.8 %; Neutrophils # (auto) 2.42 K/uL (1.4-6.5); Neutrophils % (auto) 44.9 %; Nucleated RBC # (auto) 0.24 K/uL (0-0); Nucleated RBC % (auto) 4.5 %; Platelet Count 291 K/uL (130-400); RDW Coefficient of Variation 20.3 % (11.5-14.5); RDW Standard Deviation 77.1 fL (36.4-46.3); Red Blood Count 2.21 M/uL (4.2-5.4); White Blood Count 5.38 K/uL (4.8-10.8)
[2020-12-07 09:58] LABS: Blood Urea Nitrogen 7 mg/dl (7-18); Calcium 8.6 mg/dl (8.5-10.1); Carbon Dioxide 26 mmol/L (21-32); Chloride 107 mmol/L (98-107); Creatinine Clr Calc Pharmacy 167.9 ml/min; Est GFR (African American) > 150.0 ml/min; Est GFR (Non-African American) 133.9 ml/min; Glucose 92 mg/dl (70-99); Magnesium 1.9 mg/dl (1.8-2.4); Potassium 3.7 mmol/L (3.5-5.1); Sodium 138 mmol/L (136-145)
[2020-12-07 09:59] LABS: Phosphorus 4.1 mg/dl (2.5-4.9)
--- NOTE | 2020-12-07 10:07 | Hospitalist Progress Note ---
Date of Service December 07, 2020 Assessment & Plan (1) Sickle cell anemia: Plan: James Early is a 20-year-old female with PMH of sickle cell disease, chronic pain, borderline personality, anxiety, depression, nonepileptic pseudoseizures, GERD, sleep disturbances who is admitted to [facility] due to sickle cell pain crisis. Sickle cell crisis: - Hgb stable in high 8s since 11/28 - Continues to have pain -- today feels it's worse than yesterday - Continue with LR @ 125ml/hour - Continue IV morphine prn for pain control -- encouraged to use IV only if needed as she will ultimately use PO if not in hospital - Continue Nucynta ER 100mg BID scheduled - Also has Nucynta IR 50mg PO q4h PRN - Continue Hydroxyurea 1000mg PO BID Nasal congestion: - Improved today - Continue Flonase and nasal saline spray prn - Continue to monitor Avascular necrosis of bone of hip: - Has focused pain in the left hip, as well as the low back. - Hip XR: Redemonstration of the bilateral femoral head avascular necrosis, left greater than right. Subacute subchondral fracture of the left femoral head with mild impaction. - Ortho recs for eval at a tertiary center, may need arthroplasty in the near future. - Pain management as above - PT eval and treat and crutch training - Plan for outpatient ortho f/u Opioid-induced hyperalgesia: - as above - seen by pain management in 08/07 Depression/borderline personality disorder - continue duloxetine and olanzipine GERD (gastroesophageal reflux disease): - continue Protonix 40mg PO daily Psychogenic nonepileptic seizure: - Usually occurs with stressful events - Continue reassurance, anxiety management, pain control Hyperbilirubinemia: - Stable on most recent checks - Has chronically elevated bilirubin - No RUQ symptoms - Continue to monitor DVT: Lovenox Code: Full Diet: Regular Dispo: MedSurg Admission and Anticipated Discharge Date Admission Date: November 26, 2020 Supervising Physician Co-Signing Physician Notes Resident Physician Supervision Note: I independently interviewed and examined the patient and verified the amaro history and physical, reviewed labs and image studies and agree with resident Dr. Myles findings and care plan. When seen in the afternoon - though pain is still the same but overall feeling better. Subjective No acute events overnight. Patient attempted to use oral consent as needed overnight. She felt at that point that she still required the IV morphine to better control her pain. This morning reports pain that is 8 out of 10. Specifically asks about whether there is anything else that can be done regarding her hips while she is admitted. Informed her that at this point is mainly a pain management issue, since orthopedics recommended evaluation by a tertiary center for her necrosis. Review of Systems Review of Systems: Per subjective Physical Exam Physical Exam: GENERAL: A&Ox3. NAD. CHEST/LUNGS: CTAB A/P. No crackles, wheezes, rales, rhonchi. HEART: RRR. No m/g/r. No carotid bruits. EXTREMITIES: No cyanosis, no clubbing, no edema PSYCHIATRIC: Euthymic affect, no SI, no pressured speech, no hallucinations Results & Data Results & Data ([facility]) Vital Signs (Past 12 Hours) Vital Signs Temp Pulse Resp BP BP Pulse Ox 12/07/20 07:31 36.9 C 88 14 107/70 92 12/06/20 22:39 37.0 C 80 15 106/61 97 Resident Activity Tracking Resident Involvement: Resident Care Provided Care Provided: Adult Hospital Medicine (1) Sickle cell anemia Sickle-cell associated disorders: with unspecified crisis Qualified Code(s): D57.00 - Hb-SS disease with crisis, unspecified
[2020-12-07 10:20] LABS: Anisocytosis Present; Poikilocytosis Present; Target Cells 1+
[2020-12-07] MEDS: SODIUM CHLORIDE 0.65% NA SOLN 45 ML (OCEAN) PRN (11:53)
[2020-12-07] MEDS: FOLIC ACID 1 MG TAB PO SCH (20:48)
[2020-12-07] MEDS: ENOXAPARIN INJ 40 MG/0.4 ML SYR SQ SCH (20:49)
[2020-12-07] MEDS: OLANZapine 5 MG TABLET PO SCH (20:49)
[2020-12-07] MEDS: DULoxetine HCL 60 MG CAP PO SCH (20:49)
[2020-12-07] MEDS: diphenhydrAMINE Capsule 25 MG CAP PO SCH (20:49)
[2020-12-08] MEDS: LACTATED RINGER'S 1,000 ML IV SCH ×3 (02:28→11:25)
[2020-12-08] MEDS: MoRPHine SULFATE 4 MG/ML 1 ML CARP\\VIAL IV PRN ×8 (02:28→22:40)
--- NOTE | 2020-12-08 08:08 | Hospitalist Progress Note ---
Date of Service December 08, 2020 Assessment & Plan (1) Sickle cell anemia: Plan: James Early is a 20-year-old female with PMH of sickle cell disease, chronic pain, borderline personality, anxiety, depression, nonepileptic pseudoseizures, GERD, sleep disturbances who is admitted to [facility] due to sickle cell pain crisis. Sickle cell crisis: - Hgb stable in high 8s since 11/28 - Continues to have pain - Continue with LR @ 125ml/hour - Continue IV morphine prn for pain control -- encouraged to use IV only if needed as she will ultimately use PO if not in hospital - Continue Nucynta ER 100mg BID scheduled - Also has Nucynta IR 50mg PO q4h PRN - Continue Hydroxyurea 1000mg PO BID Hypomagnesemia - Mag of 1.7 this AM - Replete Nasal congestion: - Improved - Continue Flonase and nasal saline spray prn - Continue to monitor Avascular necrosis of bone of hip: - Has focused pain in the left hip, as well as the low back. - Hip XR: Redemonstration of the bilateral femoral head avascular necrosis, left greater than right. Subacute subchondral fracture of the left femoral head with mild impaction. - Ortho recs for eval at a tertiary center, may need arthroplasty in the near future. - Pain management as above - PT eval and treat and crutch training - Plan for outpatient ortho f/u Opioid-induced hyperalgesia: - as above - seen by pain management in 08/07 Depression/borderline personality disorder - continue duloxetine and olanzipine GERD (gastroesophageal reflux disease): - continue Protonix 40mg PO daily Psychogenic nonepileptic seizure: - Usually occurs with stressful events - Continue reassurance, anxiety management, pain control Hyperbilirubinemia: - Stable on most recent checks - Has chronically elevated bilirubin - No RUQ symptoms - Continue to monitor DVT: Lovenox Code: Full Diet: Regular Dispo: MedSurg Admission and Anticipated Discharge Date Admission Date: November 26, 2020 Supervising Physician Co-Signing Physician Notes Resident Physician Supervision Note: I independently interviewed and examined the patient and verified the amaro history and physical, reviewed labs and image studies and agree with resident Dr. Myles findings and care plan. Subjective No acute events overnight. Patient reports that her pain is still an 8 out of 10 today. States she is anxious to be discharged but does not feel ready to transition to oral medications at this time. Denies headache, dizziness, nausea, vomiting, palpitations, shortness of breath. Review of Systems Review of Systems: Per subjective Physical Exam Physical Exam: GENERAL: A&Ox3. NAD. CHEST/LUNGS: CTAB A/P. No crackles, wheezes, rales, rhonchi. HEART: RRR. No m/g/r. No carotid bruits. EXTREMITIES: No cyanosis, no clubbing, no edema PSYCHIATRIC: Euthymic affect, no SI, no pressured speech, no hallucinations Results & Data Results & Data ([facility]) Vital Signs (Past 12 Hours) Vital Signs Temp Pulse Resp BP Pulse Ox 12/08/20 07:15 36.3 C L 79 18 111/68 97 Resident Activity Tracking Resident Involvement: Resident Care Provided Care Provided: Adult Hospital Medicine (1) Sickle cell anemia Sickle-cell associated disorders: with unspecified crisis Qualified Code(s): D57.00 - Hb-SS disease with crisis, unspecified
[2020-12-08] MEDS: TAPENTADOL HCL ER 50 MG TABCR PO SCH ×2 (08:36→22:37)
[2020-12-08] MEDS: MULTIVITAMIN TAB PO SCH (08:38)
[2020-12-08] MEDS: HYDROXYUREA 500 MG CAP PO SCH ×2 (08:38→20:40)
[2020-12-08] MEDS: SENNA 8.6 MG TAB PO SCH (08:39)
[2020-12-08] MEDS: SUCRALFATE 1 GM TAB PO SCH ×4 (08:39→20:38)
[2020-12-08] MEDS: PANTOprazole 40 MG TAB PO SCH ×2 (08:40→20:39)
[2020-12-08] MEDS: DICLOFENAC SOD 1% GEL 100 GM TUBE EXT SCH ×4 (08:41→20:31)
[2020-12-08] MEDS: FLUTICASONE PROPIONATE NA SPR 16 GM BTL SCH (08:41)
[2020-12-08 08:43] LABS: BUN Creatinine Ratio 12.9 (10-20); Blood Urea Nitrogen 6 mg/dl (7-18); Calcium 8.7 mg/dl (8.5-10.1); Carbon Dioxide 25 mmol/L (21-32); Chloride 106 mmol/L (98-107); Creatinine Clr Calc Pharmacy 201.5 ml/min; Est GFR (African American) > 150.0 ml/min; Est GFR (Non-African American) 142.2 ml/min; Glucose 90 mg/dl (70-99); Magnesium 1.7 mg/dl (1.8-2.4); Potassium 3.5 mmol/L (3.5-5.1); Sodium 139 mmol/L (136-145)
[2020-12-08] MEDS: MAGNESIUM SULFATE / D5W 1 GM/100 ML BAG IV SCH ×2 (16:52→18:25)
[2020-12-08] MEDS: ENOXAPARIN INJ 40 MG/0.4 ML SYR SQ SCH (20:31)
[2020-12-08] MEDS: FOLIC ACID 1 MG TAB PO SCH (20:39)
[2020-12-08] MEDS: DULoxetine HCL 60 MG CAP PO SCH (20:40)
[2020-12-08] MEDS: diphenhydrAMINE Capsule 25 MG CAP PO SCH (22:37)
[2020-12-08] MEDS: OLANZapine 5 MG TABLET PO SCH (22:37)
[2020-12-09] MEDS: TAPENTADOL HCL 50 MG TAB PO PRN ×2 (00:31→06:05)
[2020-12-09] MEDS: MoRPHine SULFATE 4 MG/ML 1 ML CARP\\VIAL IV PRN ×5 (01:05→12:53)
[2020-12-09] MEDS: LACTATED RINGER'S 1,000 ML IV SCH ×3 (01:09→10:55)
--- NOTE | 2020-12-09 07:40 | Hospitalist Progress Note ---
Date of Service December 09, 2020 Assessment & Plan (1) Sickle cell anemia: Plan: James Early is a 20-year-old female with PMH of sickle cell disease, chronic pain, borderline personality, anxiety, depression, nonepileptic pseudoseizures, GERD, sleep disturbances who is admitted to [facility] due to sickle cell pain crisis. Sickle cell crisis: - Hgb stable in high 8s since 11/28 - Continues to have pain - Continue with LR @ 125ml/hour - Continue IV morphine prn for pain control -- encouraged to use IV only if needed as she will ultimately use PO if not in hospital - Continue Nucynta ER 100mg BID scheduled - Also has Nucynta IR 50mg PO q4h PRN - Continue Hydroxyurea 1000mg PO BID Hypomagnesemia - Mag of 1.7 this AM - Replete Nasal congestion: - Improved - Continue Flonase and nasal saline spray prn - Continue to monitor Avascular necrosis of bone of hip: - Has focused pain in the left hip, as well as the low back. - Hip XR: Redemonstration of the bilateral femoral head avascular necrosis, left greater than right. Subacute subchondral fracture of the left femoral head with mild impaction. - Ortho recs for eval at a tertiary center, may need arthroplasty in the near future. - Pain management as above - PT eval and treat and crutch training - Plan for outpatient ortho f/u Opioid-induced hyperalgesia: - as above - seen by pain management in 08/07 Depression/borderline personality disorder - continue duloxetine and olanzapine GERD (gastroesophageal reflux disease): - continue Protonix 40mg PO daily Psychogenic nonepileptic seizure: - Usually occurs with stressful events - Continue reassurance, anxiety management, pain control Hyperbilirubinemia: - Stable on most recent checks - Has chronically elevated bilirubin - No RUQ symptoms - Continue to monitor DVT: Lovenox Code: Full Diet: Regular Dispo: MedSurg Admission and Anticipated Discharge Date Admission Date: November 26, 2020 Subjective Current pain is 6/10, better than yesterday. No other complaints. Inquiring about going home since she doesn't want to miss too much of school. Ate some breakfast. Review of Systems Review of Systems: All systems reviewed & are unremarkable except as noted in HPI & below Constitutional: Denies fever, chills, weight change Eyes: Denies blurry vision, vision changes ENT: Denies sore throat, sinus pain Cardiovascular: Denies chest pain, palpitations Respiratory: Denies shortness of breath Gastrointestinal: Denies abdominal pain, nausea, vomiting, constipation, diarrhea Genitourinary: Denies urinary symptoms including dysuria Musculoskeletal: See HPI Neurological: Denies headache, numbness, tingling, focal weakness Physical Exam Physical Exam: General: Grossly A&O. NAD. Cooperative. HEENT: Atraumatic, normocephalic. EOMI Pulm: CTAB. -wheezes, -rales, -rhonchi. No respiratory distress. Cardiac: RRR, -mrg. No LE edema. Abdominal: Nontender, nondistended, soft. Psych: appropriate affect. Results & Data Results & Data ([facility]) Vital Signs (Past 12 Hours) Vital Signs vitals wnl. HR 93 x1. Temp Pulse Resp BP Pulse Ox 12/09/20 07:10 37.0 C 82 18 109/71 96 12/08/20 22:44 36.4 C L 93 H 14 123/80 93 Laboratory Results bmp pending. no cbc. prev cbc chronically anemic macrocytic 8.4, 104.5 11/26/20 BC NG final 12/07/20 09:10 12/08/20 07:29 Diagnostic Findings 11/28/20 hip/pelv xr IMPRESSION: 1. There is a subacute subchondral fracture of the left femoral head with mild impaction. This is similar to the prior studies. No acute fracture or dislocation within the pelvis or hips. 2. Additional chronic manifestations of sickle cell disease are again noted. Resident Activity Tracking Resident Involvement: Resident Care Provided Care Provided: Adult Hospital Medicine (1) Sickle cell anemia Sickle-cell associated disorders: with unspecified crisis Qualified Code(s): D57.00 - Hb-SS disease with crisis, unspecified
[2020-12-09] MEDS: SUCRALFATE 1 GM TAB PO SCH ×2 (08:24→12:54)
[2020-12-09] MEDS: TAPENTADOL HCL ER 50 MG TABCR PO SCH (08:24)
[2020-12-09] MEDS: HYDROXYUREA 500 MG CAP PO SCH (08:25)
[2020-12-09] MEDS: DICLOFENAC SOD 1% GEL 100 GM TUBE EXT SCH ×2 (08:25→12:54)
[2020-12-09] MEDS: PANTOprazole 40 MG TAB PO SCH (08:25)
[2020-12-09] MEDS: SENNA 8.6 MG TAB PO SCH (08:25)
[2020-12-09] MEDS: MULTIVITAMIN TAB PO SCH (08:25)
[2020-12-09] MEDS: FLUTICASONE PROPIONATE NA SPR 16 GM BTL SCH (08:26)
[2020-12-09 10:54] LABS: BUN Creatinine Ratio 8.8 (10-20); Blood Urea Nitrogen 5 mg/dl (7-18); Calcium 8.8 mg/dl (8.5-10.1); Carbon Dioxide 24 mmol/L (21-32); Chloride 105 mmol/L (98-107); Creatinine Clr Calc Pharmacy 159.1 ml/min; Est GFR (African American) > 150.0 ml/min; Est GFR (Non-African American) 131.6 ml/min; Glucose 130 mg/dl (70-99); Magnesium 1.7 mg/dl (1.8-2.4); Potassium 3.3 mmol/L (3.5-5.1); Sodium 138 mmol/L (136-145)
[2020-12-09] MEDS ORDERED: POTASSIUM CHLORIDE PWD 20 MEQ PACK PO STA (11:56)
--- NOTE | 2020-12-09 17:49 | Discharge Summary ---
Date of Service December 09, 2020 Admission HPI Per Admitting Provider 20 YOF with past medical history of: Sickle cell, chronic pain, Sleep disturbance, GERD, Anxiety, pseudoseizures, Depression, Borderline personality disorder(10/07). Patient comes to the hospital today for complaints of increasing pain associated with her sickle cell disease. The patient endorses that her pain has gotten worse over the past 3-5 days and she had tried to "increase her pain medication at home to not have to come in." She does not endorse any fevers, chills, or feeling ill recently. She does endorse decrease PO fluid and food intake over the past 2 days secondary to pain and her school schedule. In the EMD the patient had routine labs performed to include retic panel and routine CXR. She was given IV morphine 14mg total for her pain and 1L crystalloid therapy as well as dose of Toradol in the EMD. Her labs revealed HGB level of 10.4 MCV 101.7 RDW 67.4 and retic of 0.39 with a retic hgb content of 39.2. Due to her pain and increase in her reticulocyte count the hospitalist service was consulted for admission. Patient will be admitted for sickle crisis, will continue IVF resuscitation and continue her pain regimen with opioids if needed. Patient has been followed with Heme/onc for her sickle cell and her last transfusion was in August. She is also awaiting her appointment with sickle cell center ([facility]) around December 12. NON DESTRUCTIVE TESTING SPECIALIST reviewed 30 day supply for her Nucynta was October 20 for 30 day supply of both the ER 150mg tabs bid and the 50mg IR tabs bid. There is a UA pending for collection on admission. Patient has received her COVID vaccine and her COVID test on admission is: NEGATIVE Admission Exam Per Admitting Provider General: awake, alert, no apparent distress Head: Normocephalic, atraumatic ENT: PERRL, EOMI, no pharyngeal exudate, mucous membranes moist, conjunctivae pink Neuro: AAO x 3, speech clear and appropriate, strength intact bilaterally 5/5, sensation intact and equal all extremities and dermatomes, no pronator drift Chest: equal rise and fall of the chest, no accessory muscle use, no heaves or thrills, Clear to auscultation, on room air, Cardiac: Regular rate and rhythm, telemetry reviewed- NSR , skin warm dry, cap refill <3 seconds, peripheral pulses +2 no JVD, no murmur, no edema GI: NABS x 4 quadrants, soft, nontender to palpation, no rebound, guarding or tenderness : Spontaneously voiding, no pain, no CVA tenderness, Extremities: Normal inspection, no peripheral edema or erythema, calfs nontender to palpation Psych: flat affect, but may be due to her dose of morphine Skin: no rash or erythema Principal Diagnosis sickle cell crisis Discharge Exam General: Grossly A&O. NAD. Cooperative. HEENT: Atraumatic, normocephalic. EOMI Pulm: CTAB. -wheezes, -rales, -rhonchi. No respiratory distress. Cardiac: RRR, -mrg. No LE edema. Abdominal: Nontender, nondistended, soft. Psych: appropriate affect. Discharge Data Allergies Allergy/AdvReac Type Severity Reaction Status Date / Time No Known Allergies Allergy Verified 11/26/20 12:27 Consultations 11/26/20 14:33 ED Decision to Admit Stat 11/28/20 13:17 Consult Orthopedic Surgery Routine Ordered Studies Comprehensive Metabolic Panel 12/09/20 Range/Units 10:03 Sodium 138 (136-145) mmol/L Potassium 3.3 L (3.5-5.1) mmol/L Chloride 105 (98-107) mmol/L Carbon Dioxide 24 (21-32) mmol/L BUN 5 L (7-18) mg/dl Creatinine 0.57 L (0.6-1.2) mg/dl Glucose 130 H (70-99) mg/dl Calcium 8.8 (8.5-10.1) mg/dl Intake and Output 12/09/20 12/09/20 12/09/20 06:59 14:59 22:59 Intake Total 1240 / 1240 Balance 1240 / 1240 Intake: IV 1000 / 1000 Lactated Ringer's 1,000 ml @ 1000 / 1000 125 mls/hr IV .Q8H [facility] Rx#: [id number] Oral 240 / 240 Other: Weight 73.8 kg Patient Weight 12/10/20 06:59 Weight 73.8 kg Chest X-Ray 11/26/20 11:56 SINGLE VIEW CHEST CLINICAL HISTORY: Atypical chest pain. FINDINGS: An AP, portable, upright chest radiograph is compared to study dated 10/30/2020 and correlated with chest CT dated 06/30/2020. The cardiac silhouette appears enlarged. The lungs and pleural spaces are clear. No pneumothorax is seen. The bony thorax is grossly intact. IMPRESSION: Cardiac enlargement with no acute cardiopulmonary abnormality identified. ACT 112: Negative or not required by law. Electronically signed by: Richard Mcmahon M.D. 11/26/2020 12:26 PM Hip/Pelvis X-Ray 11/28/20 08:00 XR hip LT 2V w pelvis CLINICAL HISTORY: worsening pain, known DJD, ?fx/erosion COMPARISON STUDY: Pelvis radiograph 08/30/2020. Abdomen and pelvis CT 10/31/2020. FINDINGS: Redemonstration of the bilateral femoral head avascular necrosis, left greater than right. There is a subacute subchondral fracture of the left femoral head with mild impaction. This is similar to the prior studies. No acute fracture or dislocation within the pelvis or hips. Bone infarct within the proximal right femur remains unchanged. Mild thickening within the right inferior pubic ramus is also unchanged and is likely chronic. IMPRESSION: 1. There is a subacute subchondral fracture of the left femoral head with mild impaction. This is similar to the prior studies. No acute fracture or dislocation within the pelvis or hips. 2. Additional chronic manifestations of sickle cell disease are again noted. ACT 112: Negative or not required by law. Electronically signed by: Cortes Fletcher M.D. 11/28/2020 8:51 AM Hospital Course (1) Sickle cell anemia: (2) Chronic pain: (3) Vaso-occlusive sickle cell crisis: (4) Myalgia: (5) Borderline personality disorder: (6) Depression: (7) Nausea: (8) Avascular necrosis of bone of hip: (9) Somatic dysfunction of pelvis region: James Early is a 20-year-old female with PMH of sickle cell disease, chronic pain, borderline personality, anxiety, depression, nonepileptic pseudoseizures, GERD, sleep disturbances who was admitted to [facility] from 11/26/20 to 12/09/20 for sickle cell crisis pain. Sickle cell crisis: - Hgb stable in high 8s since 11/28/20 - macrocytic. folate wnl 04/2020. no B12 in records. consider checking with next lab draw - Provided IV fluids during the admission - Continued Hydroxyurea 1000mg PO BID - Provided prn IV morphine PRN for pain control in the inpatient setting in addition to home med - Regimen upon leaving hospital will be Nucynta ER 100mg BID + PRN Nucynta IR 50mg up to q6h (was q4h prn in hospital) - f/u w/ outpatient heme/onc routinely Avascular necrosis of bone of hip: - Has focused pain in the left hip, as well as the low back. - Hip XR: Redemonstration of the bilateral femoral head avascular necrosis, left greater than right. Subacute subchondral fracture of the left femoral head with mild impaction. - Ortho recs for eval at a tertiary center, may need arthroplasty in the near future. Patient will f/u w/ [facility] ortho. - vitamin D low at 19 on 12/07/20. consider supplementation - Pain management as above - PT eval and treat and crutch training Nasal congestion: - Improved - Continue Flonase and nasal saline spray prn Opioid-induced hyperalgesia: - as above - seen by pain management in 08/07 Depression/borderline personality disorder - continue duloxetine and olanzapine GERD (gastroesophageal reflux disease): - continue Protonix 40mg PO daily Psychogenic nonepileptic seizure: - Usually occurs with stressful events - Continue reassurance, anxiety management, pain control Hyperbilirubinemia: - Stable on most recent checks - Has chronically elevated bilirubin - No RUQ symptoms - CMP in 1 month as above Total Time Total Time Spent Total Time Spent (In Minutes): <30 Discharge Plan Discharge Items Patient Disposition: Home - Self-Care Reason For Visit: PAIN Discharge Diagnosis: sickle cell crisis Activity: Per Instructions section Non-emergency contact: Primary Care Provider Call non-emergency contact if: you have any medication questions, your symptoms worsen and you have a fever Follow-up/Referrals: Juan Alberto Amaro MD [Surgeon] - (outpatient ortho f/u in 1-3 wks) Zamzam Bailey MD [Primary Care Provider] - (hosp f/u within 1 wk (preferably sooner such as in 3-5 days. Please call [facility] clinic for transitional care management (call office within 2 days of discharge).) Diet: Regular Addtl Attending Provider Instructions: Damian Ramirez, You were admitted to [facility] for severe pains. You were treated at the hospital with fluids, sickle cell medications, and pain medications until your symptoms improved enough for you to go home. Please follow up with Dr. Zamzam Bailey your PCP within 1 week from hospital discharge. She will recheck your BMP (including potassium) in 1 month. F/u with Dr. Amaro (orthopedics) has been requested for your hip; he will likely refer you to a specialty center such as [facility]. His office will call you to schedule an appointment. You may wear crutches on the left leg and weight bear as tolerated. I did not formally change your home Nucynta (pain medicine) prescriptions since you already have supply at home. The dose we used in the hospital was Nucynta extended release 100mg twice a day with as needed immediate release Nucynta 50mg (I recommend no more than every 6 hours. You can use your existing previous prescription (take 2/3 of the 150 mg extended release tab) to follow the new dosing. Dr. Bailey will adjust your pain medications as needed. standard return precautions: If you develop any new or worsening symptoms including fever, chills, sweats, chest pain, chest pressure, difficulty breathing, uncontrolled nausea/vomiting, rash, wheezing, passing out or nearly passing out, bleeding, black/bloody bowel movements, or other new or concerning symptoms please call your primary care physician, or call 911 for re-evaluation in the emergency department if you are very concerned. Pending Studies at Discharge: No Stand-Alone Forms: My [facility] [employer], Smoking Cessation Medications and DC Order Prescriptions: Continued folic acid 1 mg Tablet 2 mg PO HS RF: 0 hydroxyurea 500 mg Capsule 1,000 mg PO BID 30 Days Qty: 120 RF: 1 sennosides [Senokot] 8.6 mg Tablet 17.2 mg PO QAM Qty: 60 RF: 0 diclofenac sodium 1 % Gel 4 g TOPICAL QID RF: 0 Nucynta ER 150 mg tablet extended release 12 hr 150 mg PO BID Qty: 14 RF: 0 Narcan 4 mg/actuation spray,non-aerosol 1 spray intranasal .Q3 MINUTES PRN (Reason: OVERSEDATION) RF: 0 pantoprazole 40 mg Tablet,Delayed Release (Dr/Ec) 40 mg PO BID Qty: 60 RF: 0 sucralfate 1 gram tablet 1 g PO QID 30 Days Qty: 120 RF: 1 Nucynta 50 mg Tablet 50 mg PO BID RF: 0 olanzapine 5 mg Tablet 5 mg PO HS RF: 0 duloxetine 60 mg Capsule,Delayed Release(Dr/Ec) 60 mg PO HS Qty: 1 RF: 0 famotidine 20 mg Tablet 20 mg PO BID PRN (Reason: Acid Reflux) Qty: 1 RF: 0 polyethylene glycol 3350 [Miralax] 17 gram powder in packet 17 g PO BID PRN (Reason: Constipation) RF: 0 ondansetron 4 mg tablet,disintegrating 4 mg PO Q4H PRN (Reason: Nausea) RF: 0 Discharge Orders: Discharge Order (Routine); Ordered 12/09/20 Ordered By: Jakob Bolton Admission Data Admit Date/Time: 11/26/20 15:18 Attending Provider: Caty Serna Admit Provider: Sada Pandya Primary Care Provider: Zamzam Bailey Other Providers: Sada Pandya ; Juan Alberto Amaro Other Interventions: Discharge Summary Assessment (RN) Last Done: 12/09/20 13:12 Supervising Physician Co-Signing Physician Notes Resident Physician Supervision Note: I independently interviewed and examined the patient and verified the amaro history and physical, reviewed labs and image studies and agree with resident Dr. Bolton findings and care plan. Resident Activity Tracking Resident Involvement: Resident Care Provided Care Provided: Adult Hospital Medicine
== END 2020-12-09 15:11 | disposition home or self-care (01) | DRG 811 ==
LOC: ED 10:58 → 3N 15:18 → SUATTDRO 15:18 → 3N 17:38

== ENCOUNTER 2021-01-16 10:07 | Inpatient (IN) ==
[2021-01-16] MEDS ORDERED: ACTIVATED CHARCOAL/SORBITOL 25 GM/120 ML TUBE PO STA (10:41)
[2021-01-16 11:25] LABS: Basophils # (auto) 0.02 K/uL (0-0.2); Basophils % (auto) 0.2 %; Eosinophils # (auto) 0.11 K/uL (0-0.5); Eosinophils % (auto) 1.1 %; Hematocrit (blood only) 25.4 % (37-47); Hemoglobin 9.1 g/dL (12.0-16.0); Immature Granulocytes # (auto) 0.04 K/uL (0.00-0.02); Immature Granulocytes % (auto) 0.4 %; Lymphocytes # (auto) 3.89 K/uL (1.2-3.4); Lymphocytes % (auto) 39.5 %; Mean Corpuscular Hemoglobin 35.7 pg (25-34); Mean Corpuscular Hgb Conc 35.8 g/dL (32-36); Mean Corpuscular Volume 99.6 fL (80-100); Monocytes % (auto) 7.1 %; Neutrophils # (auto) 5.08 K/uL (1.4-6.5); Neutrophils % (auto) 51.7 %; Nucleated RBC # (auto) 0.02 K/uL (0-0); Nucleated RBC % (auto) 0.2 %; Platelet Count 463 K/uL (130-400); RDW Coefficient of Variation 18.8 % (11.5-14.5); RDW Standard Deviation 68.6 fL (36.4-46.3); Red Blood Count 2.55 M/uL (4.2-5.4); White Blood Count 9.84 K/uL (4.8-10.8)
[2021-01-16 11:45] LABS: Alanine Aminotransferase 22 U/L (12-78); Albumin Level 3.9 gm/dl (3.4-5.0); Aspartate Aminotransferase 27 U/L (15-37); BUN Creatinine Ratio 4.7 (10-20); Blood Urea Nitrogen 3 mg/dl (7-18); Calcium 9.4 mg/dl (8.5-10.1); Carbon Dioxide 29 mmol/L (21-32); Chloride 105 mmol/L (98-107); Est GFR (Non-African American) 129.4 ml/min; Glucose 112 mg/dl (70-99); Potassium 3.2 mmol/L (3.5-5.1); Sodium 136 mmol/L (136-145)
--- NOTE | 2021-01-16 11:53 | Emergency Department Note ---
History of Present Illness General Chief complaint: Overdose (Intentional) Time Seen by Provider: 01/16/21 10:29 History of Present Illness This is a 20-year-old female presents to the ED with a chief complaint of a overdose on Nucynta. The patient states that she took 12 tablets this morning. She states that she took 2 and then an hour later took about 10. This was about 45 minutes to an hour prior to arrival. The patient states that she has chronic pain everywhere, every day related to her sickle cell disease. She reported to EMS that she wanted to end her life, however to me she stated that she just wanted her pain to go away. She denied being suicidal when I evaluated her in the emergency department. The patient was here recently for psychiatric evaluation. No additional complaints. Denies additional ingestions. Home Medications Medication Instructions Recorded Confirmed Type naloxone 4 mg/actuation nasal 1 spray INTRANASAL .Q3 MINUTES PRN 09/04/20 01/16/21 History spray (Narcan) tapentadol 50 mg tablet (Nucynta) 50 mg PO .TAPER DOSE 01/16/21 01/16/21 History Allergies Allergy/AdvReac Type Severity Reaction Status Date / Time No Known Allergies Allergy Verified 01/16/21 13:55 Past Med/Surg History Medical History Acute leg pain Borderline personality disorder Chest pain Chronic pain Depression Murmur, cardiac Nausea Overdose Person under investigation for COVID-19 Pneumonia Pseudoseizures Seizure-like activity Sickle cell anemia Sickle cell crisis Suicidal ideation Suicide gesture Surgical History No pertinent past surgical history Family History Mother Hypertension Father Ulcer Other Family history non-contributory Social History Smoking Status: Never smoker Tobacco Type: E-cigarettes / Vaping Second Hand Exposure: Yes; Hx Alcohol Use: Yes Alcohol type: other Hx Substance Use: No Preferred Language: Qatari Communication Ability: Effective Artifacts Conservator Required: No Beliefs That Will Affect Care: None marital status: Single Current Living Situation: Other Current Living Situation Comment: Pt states she lives with roommates 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 current occupation: [employer] major Feels Safe at Home: Yes Assistive Devices: None Review of Systems A total of 10 systems reviewed and were otherwise negative Physical Exam Vital Signs Vital Signs - 24 hr 01/16/21 10:24 01/16/21 12:00 01/16/21 14:00 Temperature 36.8 C Temperature Source Oral Pulse Rate 117 H Pulse Rate [Apical] 85 78 Pulse Rhythm [Apical] Regular Regular Pulse Strength [Apical] Normal Respiratory Rate 22 16 14 Respiratory Effort / Characteristics Non-Labored Spontaneous Non-Labored Spontaneous Non-Labored Spontaneous Respiratory Depth Normal Normal Normal Respiratory Pattern Regular Regular Regular Blood Pressure 137/97 Blood Pressure [Right Arm] 106/62 118/74 Blood Pressure Mean 110 Blood Pressure Mean [Right Arm] 76 88 Blood Pressure Position Lying Blood Pressure Position [Right Arm] Lying Lying Pulse Oximetry 96 95 99 Oxygen Delivery Method Room Air Room Air Room Air Sepsis Recent Fever Within 48 Hours No Sepsis New/Unexplained Change in Mental Status No Sepsis Action Taken by Nursing No Action Required CONSTITUTIONAL/VITAL SIGNS: Reviewed / noted above. GENERAL: Non-toxic in appearance. INTEGUMENTARY: Warm, dry, and [place]. HEAD: Normocephalic. EYES: without scleral icterus or trauma. ENT/OROPHARYNX: clear and moist. LYMPHADENOPATHY/NECK: Is supple without lymphadenopathy or meningismus. RESPIRATORY: Clear to auscultation bilaterally. No increased work of breathing. CARDIOVASCULAR: Regular rate and rhythm. GI/ABDOMEN: Soft and nontender. No organomegaly or pulsatile mass. EXTREMITIES: Warm and well perfused. BACK: No CVA tenderness. NEUROLOGICAL: Intact without focal deficits. PSYCHIATRIC: normal affect. MUSCULOSKELETAL: Normally developed with good muscle tone. TRIAGE NURSING DOCUMENTATION REVIEWED. Course Administered Medications Discontinued Medications Charcoal/Sorbitol (Activated Charcoal/Sorbitol 25 Gm/120 Ml Tube) 50 gm PO NOW STA Stop: 01/16/21 10:42 Last Admin: 01/16/21 11:13 Dose: 50 gm Documented by: [id number] Medical Decision Making Differential Diagnosis Differential includes toxic ingestions, self-mutilation, suicidal ideation, suicide attempt, depression. Medical Records Attestation: I reviewed the patient's medical records. Home Medications Current Medication List: was personally reviewed by me Laboratory Data Attestation: I reviewed the patient's lab results. Result diagrams: 01/16/21 11:10 01/16/21 11:10 Lab Results 01/16/21 01/16/21 01/16/21 Range/Units 11:10 11:10 11:10 WBC 9.84 (4.8-10.8) K/uL RBC 2.55 L (4.2-5.4) M/uL Hgb 9.1 L (12.0-16.0) g/dL Hct 25.4 L (37-47) % MCV 99.6 (80-100) fL MCH 35.7 H (25-34) pg MCHC 35.8 (32-36) g/dL RDW Std Deviation 68.6 H (36.4-46.3) fL RDW Coeff of Nando 18.8 H (11.5-14.5) % Plt Count 463 H (130-400) K/uL MPV 9.0 (7.4-10.4) fL Immature Gran % (Auto) 0.4 % Neut % (Auto) 51.7 % Lymph % (Auto) 39.5 % Cache % (Auto) 7.1 % Eos % (Auto) 1.1 % Baso % (Auto) 0.2 % Neut # (Auto) 5.08 (1.4-6.5) K/uL Lymph # (Auto) 3.89 H (1.2-3.4) K/uL [place] # (Auto) 0.70 H (0.11-0.59) K/uL Eos # (Auto) 0.11 (0-0.5) K/uL Baso # (Auto) 0.02 (0-0.2) K/uL Immature Gran # (Auto) 0.04 H (0.00-0.02) K/uL Absolute Nucleated RBC 0.02 H (0-0) K/uL Nucleated RBC % (auto) 0.2 % Sodium 136 (136-145) mmol/L Potassium 3.2 L (3.5-5.1) mmol/L Chloride 105 (98-107) mmol/L Carbon Dioxide 29 (21-32) mmol/L Anion Gap 2.0 L (3-11) BUN 3 L (7-18) mg/dl Creatinine 0.60 (0.6-1.2) mg/dl Est Cr Clr Drug Dosing Not Reportable Est GFR ( Amer) 150.0 ml/min Est GFR (Non-Af Amer) 129.4 ml/min BUN/Creatinine Ratio 4.7 L (10-20) Glucose 112 H (70-99) mg/dl Calcium 9.4 (8.5-10.1) mg/dl Total Bilirubin 2.7 H (0.2-1) mg/dl AST 27 (15-37) U/L ALT 22 (12-78) U/L Alkaline Phosphatase 73 (45-117) U/L Total Protein 8.4 H (6.4-8.2) gm/dl Albumin 3.9 (3.4-5.0) gm/dl Globulin 4.5 H (2.5-4.0) gm/dl Albumin/Globulin Ratio 0.9 (0.9-2) TSH 5.620 H (0.300-4.500) uIu/ml Free T4 1.59 (0.8-1.6) ng/dl Urine Color Urine Appearance (Clear) Urine pH (4.5-7.5) Ur Specific [place] (1.000-1.030) Urine Protein (Negative) Urine Glucose (UA) (Negative) Urine Ketones (Negative) Urine Blood (Negative) Urine Nitrite (Negative) Urine Bilirubin (Negative) Urine Urobilinogen (Negative) Ur Leukocyte Esterase (Negative) Urine WBC (Auto) (0-5) /hpf Urine RBC (Auto) (0-4) /hpf U Hyaline Cast (Auto) (0-5) /lpf U Epithel Cells (Auto) (0-5) /lpf Urine Bacteria (Auto) (Negative) POC Ur Test (NEG) Salicylates Cancelled Urine Opiates Screen (Neg) Ur Methadone, Qual (Neg) Acetaminophen Cancelled Urine Barbiturates (Neg) Ur Phencyclidine (PCP) (Neg) U Amphetamin/Meth Scrn (Neg) MDMA (Ecstasy) Screen (Neg) U Benzodiazepines Scrn (Neg) Ur Cocaine Metabolite (Neg) U Marijuana (THC) Screen (Neg) Ethyl Alcohol mg/dL (0-3) mg/dl SARS-CoV-2, RNA, NAAT (NEGATIVE) 01/16/21 01/16/21 01/16/21 Range/Units 11:10 12:47 12:47 WBC (4.8-10.8) K/uL RBC (4.2-5.4) M/uL Hgb (12.0-16.0) g/dL Hct (37-47) % MCV (80-100) fL MCH (25-34) pg MCHC (32-36) g/dL RDW Std Deviation (36.4-46.3) fL RDW Coeff of Nando (11.5-14.5) % Plt Count (130-400) K/uL MPV (7.4-10.4) fL Immature Gran % (Auto) % Neut % (Auto) % Lymph % (Auto) % Cache % (Auto) % Eos % (Auto) % Baso % (Auto) % Neut # (Auto) (1.4-6.5) K/uL Lymph # (Auto) (1.2-3.4) K/uL [place] # (Auto) (0.11-0.59) K/uL Eos # (Auto) (0-0.5) K/uL Baso # (Auto) (0-0.2) K/uL Immature Gran # (Auto) (0.00-0.02) K/uL Absolute Nucleated RBC (0-0) K/uL Nucleated RBC % (auto) % Sodium (136-145) mmol/L Potassium (3.5-5.1) mmol/L Chloride (98-107) mmol/L Carbon Dioxide (21-32) mmol/L Anion Gap (3-11) BUN (7-18) mg/dl Creatinine (0.6-1.2) mg/dl Est Cr Clr Drug Dosing Est GFR ( Amer) ml/min Est GFR (Non-Af Amer) ml/min BUN/Creatinine Ratio (10-20) Glucose (70-99) mg/dl Calcium (8.5-10.1) mg/dl Total Bilirubin (0.2-1) mg/dl AST (15-37) U/L ALT (12-78) U/L Alkaline Phosphatase (45-117) U/L Total Protein (6.4-8.2) gm/dl Albumin (3.4-5.0) gm/dl Globulin (2.5-4.0) gm/dl Albumin/Globulin Ratio (0.9-2) TSH (0.300-4.500) uIu/ml Free T4 (0.8-1.6) ng/dl Urine Color [place] Urine Appearance Cloudy A (Clear) Urine pH 6.0 (4.5-7.5) Ur Specific [place] 1.011 (1.000-1.030) Urine Protein Negative (Negative) Urine Glucose (UA) Negative (Negative) Urine Ketones Negative (Negative) Urine Blood Negative (Negative) Urine Nitrite Negative (Negative) Urine Bilirubin Negative (Negative) Urine Urobilinogen Negative (Negative) Ur Leukocyte Esterase Trace H (Negative) Urine WBC (Auto) 5-10 H (0-5) /hpf Urine RBC (Auto) 0-4 (0-4) /hpf U Hyaline Cast (Auto) 1-5 (0-5) /lpf U Epithel Cells (Auto) >30 H (0-5) /lpf Urine Bacteria (Auto) 1+ H (Negative) POC Ur Test NEG (NEG) Salicylates Urine Opiates Screen (Neg) Ur Methadone, Qual (Neg) Acetaminophen Urine Barbiturates (Neg) Ur Phencyclidine (PCP) (Neg) U Amphetamin/Meth Scrn (Neg) MDMA (Ecstasy) Screen (Neg) U Benzodiazepines Scrn (Neg) Ur Cocaine Metabolite (Neg) U Marijuana (THC) Screen (Neg) Ethyl Alcohol mg/dL < 3.0 (0-3) mg/dl SARS-CoV-2, RNA, NAAT (NEGATIVE) 01/16/21 01/16/21 Range/Units 12:47 12:47 WBC (4.8-10.8) K/uL RBC (4.2-5.4) M/uL Hgb (12.0-16.0) g/dL Hct (37-47) % MCV (80-100) fL MCH (25-34) pg MCHC (32-36) g/dL RDW Std Deviation (36.4-46.3) fL RDW Coeff of Nando (11.5-14.5) % Plt Count (130-400) K/uL MPV (7.4-10.4) fL Immature Gran % (Auto) % Neut % (Auto) % Lymph % (Auto) % Cache % (Auto) % Eos % (Auto) % Baso % (Auto) % Neut # (Auto) (1.4-6.5) K/uL Lymph # (Auto) (1.2-3.4) K/uL [place] # (Auto) (0.11-0.59) K/uL Eos # (Auto) (0-0.5) K/uL Baso # (Auto) (0-0.2) K/uL Immature Gran # (Auto) (0.00-0.02) K/uL Absolute Nucleated RBC (0-0) K/uL Nucleated RBC % (auto) % Sodium (136-145) mmol/L Potassium (3.5-5.1) mmol/L Chloride (98-107) mmol/L Carbon Dioxide (21-32) mmol/L Anion Gap (3-11) BUN (7-18) mg/dl Creatinine (0.6-1.2) mg/dl Est Cr Clr Drug Dosing Est GFR ( Amer) ml/min Est GFR (Non-Af Amer) ml/min BUN/Creatinine Ratio (10-20) Glucose (70-99) mg/dl Calcium (8.5-10.1) mg/dl Total Bilirubin (0.2-1) mg/dl AST (15-37) U/L ALT (12-78) U/L Alkaline Phosphatase (45-117) U/L Total Protein (6.4-8.2) gm/dl Albumin (3.4-5.0) gm/dl Globulin (2.5-4.0) gm/dl Albumin/Globulin Ratio (0.9-2) TSH (0.300-4.500) uIu/ml Free T4 (0.8-1.6) ng/dl Urine Color Urine Appearance (Clear) Urine pH (4.5-7.5) Ur Specific [place] (1.000-1.030) Urine Protein (Negative) Urine Glucose (UA) (Negative) Urine Ketones (Negative) Urine Blood (Negative) Urine Nitrite (Negative) Urine Bilirubin (Negative) Urine Urobilinogen (Negative) Ur Leukocyte Esterase (Negative) Urine WBC (Auto) (0-5) /hpf Urine RBC (Auto) (0-4) /hpf U Hyaline Cast (Auto) (0-5) /lpf U Epithel Cells (Auto) (0-5) /lpf Urine Bacteria (Auto) (Negative) POC Ur Test (NEG) Salicylates Urine Opiates Screen Neg (Neg) Ur Methadone, Qual Neg (Neg) Acetaminophen Urine Barbiturates Neg (Neg) Ur Phencyclidine (PCP) Neg (Neg) U Amphetamin/Meth Scrn Neg (Neg) MDMA (Ecstasy) Screen Neg (Neg) U Benzodiazepines Scrn Neg (Neg) Ur Cocaine Metabolite Neg (Neg) U Marijuana (THC) Screen Neg (Neg) Ethyl Alcohol mg/dL (0-3) mg/dl SARS-CoV-2, RNA, NAAT NEGATIVE (NEGATIVE) MDM Narrative Patient presents with taking excessive amount of her Nucynta because of chronic pain that she has every day. EMS did a 302 petition based on her stating that she wanted to end her life. She did not report that she took the medication to end her life but wanted to improve her chronic pain. Details listed above. Her vital signs reveal tachycardia. She is in no distress other than some itching on exam. The patient was medically cleared. She was given activated charcoal orally for her ingestion. She had no concerning symptoms during her observation here in the ED. She was accepted at [facility] for [facility] health evaluation. Impression & Plan Overdose, Depression, Depression with suicidal ideation Discharge Plan Visit Data Chief Complaint: Overdose (Intentional) ED Provider: Daniel Gongora Discharge Problem: Overdose, Depression, Depression with suicidal ideation Patient Disposition: Transfer Behavioral Health Fac Forms Stand Alone Forms: [facility], Suicide Prevention Resources Prescriptions Prescriptions: No Action Narcan 4 mg/actuation spray,non-aerosol 1 spray intranasal .Q3 MINUTES PRN (Reason: OVERSEDATION) RF: 0 Nucynta 50 mg tablet 50 mg PO .TAPER DOSE RF: 0 Referrals Referrals: Zamzam Bailey MD [Primary Care Provider] -
[2021-01-16 11:56] LABS: Albumin Globulin Ratio 0.9 (0.9-2); Alkaline Phosphatase 73 U/L (45-117); Bilirubin,Total 2.7 mg/dl (0.2-1); Globulin 4.5 gm/dl (2.5-4.0); Total Protein 8.4 gm/dl (6.4-8.2)
[2021-01-16 12:08] LABS: T4 Free Thyroxine 1.59 ng/dl (0.8-1.6)
[2021-01-16 13:05] LABS: Appearance Urine Cloudy (Clear); Bacteria Urine Automated 1+ (Negative); Bilirubin Urine Negative (Negative); Blood Urine Negative (Negative); Color Urine Orange; Epithelial Cell Urine Auto >30 /lpf (0-5); Glucose Urine UA Negative (Negative); Ketones Urine Negative (Negative); Leukocyte Esterase Urine Trace (Negative); Nitrite Urine Negative (Negative); Protein Urine Negative (Negative); RBC Urine Automated 0-4 /hpf (0-4); Specific Gravity Urine 1.011 (1.000-1.030); Urobilinogen Urine Negative (Negative)
[2021-01-16 13:24] LABS: Amphetamines+Metham, Urine Neg (Neg); Barbiturates, Urine Neg (Neg); Benzodiazepine, Urine Neg (Neg); Cocaine, Urine Neg (Neg); MDMA (Ecstacy), Urine Neg (Neg); Methadone, Urine Neg (Neg); Opiate, Urine Neg (Neg); Phencyclidine, Urine Neg (Neg)
[2021-01-16] MEDS ORDERED: SODIUM CHLORIDE 0.65% NA SOLN 45 ML (OCEAN) PRN (15:04)
[2021-01-16] MEDS ORDERED: MAGNESIUM HYDROXIDE SUSP 30 ML UDC PO PRN (15:04)
[2021-01-16] MEDS ORDERED: BISMUTH SUBSALICYLATE LIQD 236 ML PO PRN (15:04)
[2021-01-16] MEDS ORDERED: ALUMINUM/MAGNESIUM SUSP 30 ML UDC PO PRN (15:04)
[2021-01-16] MEDS ORDERED: hydrOXYzine HCl 25 MG TAB PO PRN ×2 (15:04)
--- NOTE | 2021-01-16 17:34 | Electrocardiogram Report ---
Test Reason : Blood Pressure : / mmHG Vent. Rate : 113 BPM Atrial Rate : 113 BPM P-R Int : 160 ms QRS Dur : 078 ms QT Int : 344 ms P-R-T Axes : 048 065 037 degrees QTc Int : 471 ms Sinus tachycardia Biatrial enlargement Abnormal ECG When compared with ECG of 26-NOV-2020 11:25, Vent. rate has increased BY 38 BPM Confirmed by Slick Simmons ([id number]) on 01/16/2021 5:34:10 PM Referred By: REFERRED SELF Confirmed By:Torey Simmons
[2021-01-16] MEDS ORDERED: OLANZapine 10 MG/2.1 ML SDV IM STA (22:56)
[2021-01-16] MEDS ORDERED: LORazepam 1 MG TAB PO PRN (22:57)
[2021-01-16] MEDS ORDERED: OLANZapine 10 MG/2.1 ML SDV IM ONE (23:00)
[2021-01-17] MEDS: TAPENTADOL HCL 50 MG TAB PO SCH ×2 (10:26→20:29)
[2021-01-17] MEDS: DULoxetine HCL 20 MG CAP PO SCH (10:47)
--- NOTE | 2021-01-17 10:54 | History & Physical ---
Date of Service January 17, 2021 Impression / Recommendations Impression The patient is a 20 year old woman with a history of sickle cell anemia, chronic pain, BPD, depression, anxiety, trauma and functional neurological disorder who was admitted for intentional versus suicide attempt via ingestion of pain medication. Diagnostically consistent with BPD with periods of mood lability, chronic SI and self-harm complicated by her chronic pain from sickle cell anemia with hyperalgesia to opioids leading to concerns of misuse/overuse of pain medication and challenge of finding treatment options that can effectively and safely manage her pain. Given her self-harming episodes last night, suicidal gesture and brief nonepileptic seizure-like event which presents in the context of emotional stress inpatient treatment in needed at this time and she is on a 302. The patient is deemed unstable and requires psychiatric hospitalization for diagnostic clarification, safety and stabilization, medication management and development of further coping skills. Ideally treatment would focus on addressing her chronic pain and having her engage with an intensive outpatient DBT program as these are the most likely to reduce both her physical and psychic distress as well as to reduce both her acute and chronic risk of unintentional and intentional harm to self. Unfortunately she has not been agreeable to these types of treatments in the past but hopefully she may consider them again during this admission. Will focus on motivational interviewing around her goals and willingness to consider DBT or additional pain management resources such as pain center referral vs specialized program vs mindfulness based stress reduction course for pain management vs additional sickle cell anemia support groups or programs. She is willing to restart duloxetine for pain and help with depression and anxiety. DBT remains the best treatment for her BPD and will focus on therapeutic interventions based on DBT strategies while she is here. Additionally will order olanzapine prn as she has found this helpful in the past and in case of increased agitation or anxiety with self-harm. Since she is able to safety contract and denying SI today and no urges for self-harm, and history of reconstituting quickly, I will discontinue 1:1. MNPR-due to acuity of pain symptoms and periods of mood lability with self-harm which can be triggering to others and require low stimulation environment (1) Depression: Active/Remission status: currently active Depression Type: major depressive disorder Major depression episode severity: severe Major depression recurrence: recurrent Psychotic features: without psychotic features Qualified Code(s): F33.2 - Major depressive disorder, recurrent severe without psychotic features (2) Sickle cell anemia: Sickle-cell associated disorders: with unspecified crisis Qualified Code(s): D57.00 - Hb-SS disease with crisis, unspecified (3) Borderline personality disorder: (4) Chronic pain: (5) Opioid-induced hyperalgesia: (6) Psychogenic nonepileptic seizure: (7) Overdose: 01/17/21: The patient was admitted to the [facility] on q15 min checks (behavioral with suicide precautions) for safety. The patient will participate in group, recreational, and milieu therapies and will be offered additional individual and family sessions as clinically appropriate. -Start duloxetine 20mg qAM -Restart prior to admission Nucynta 50 mg BID (per CLERK MANAGER appears her prescriber has been tapering this). Will attempt to get records or speak with their office to confirm goals around pain medication use given history of misuse and opioid- induced hyperalgesia -Olanzapine 5 mg daily prn po or olanzapine 10mg IM for acute agitation Inventory Assets Strengths: student at [employer], has outpatient providers Needs: DBT, additional support for chronic pain Risk Factors Assessment acute and chronic risk are high given BPD and chronic pain, will encourage DBT and more comprehensive pain management resources as these will most significantly reduce both acute and long-term risks Male: No : No Do You Have Access To A Gun?: No Health Problems: Yes Mental Health Diagnoses: Yes Substance Use Disorders: No Previous Attempt: Yes Family History of Suicide: No Previous Psychiatric Hospitalization: Yes Hopelessness: No Protective Factors Assessment Employed: Yes Stable Relationships: Yes Supportive Family: Yes Good Rapport with Provider: Yes Psychiatric History Identifying Data ADÁN PEOPLES is a 20-year-old woman and [employer] student who currently lives with roommates, has a history of sickle cell anemia, chronic pain, opioid- induced hyperalgesia, psychogenic nonepileptic seizures/functional neurological disorder, borderline personality disorder, depression and anxiety with history of multiple prior suicide attempts by overdose, self-harming behaviors and multiple prior psychiatric hospitalizations (last 09/2020) and was admitted on 01/16/21 15:04 on a 302 involuntary commitment for suicide attempt via overdose of prescribed pain medication Nucynta. Chief Complaint "I just wanted to reduce the pain, I didn't want to ". History of Present Illness James is a 20 yo woman and [employer] senior with a history of sickle cell anemia, chronic pain, opioid-induced hyperalgesia, psychogenic nonepileptic seizures/functional neurological disorder, borderline personality disorder, depression and anxiety with history of multiple prior suicide attempts by overdose, self-harming behaviors and multiple prior psychiatric hospitalizations (last 09/2020) and was admitted on 01/16/21 15:04 on a 302 involuntary commitment for suicide attempt via overdose of prescribed pain medication Nucynta. James was experiencing significant pain this morning, rated as 7 out of 10 and described as "everywhere" which limited her ability to participate in a thorough intake assessment but she was able to answer some questions and the remaining information is gathered from chart review. James has a history of taking additional doses of pain medication sometimes in the context of trying to manage her acute pain crises and sometimes due to suicide attempts, most often due to feeling overwhelmed from pain. She was last admitted medically November 26- for management of her pain due to a sickle cell pain crisis. She was last admitted to inpatient psychiatry in September 2020 for possible suicide attempt of ingestion of additional pain medications (unclear at that time it was misuse or intentional overdose). At that time the recommendation was that she continue to see her psychiatrist and therapist and engage with a DBT program. At that time she declined offers for referrals to specialized pain management programs and declined referrals for DBT to treat her BPD. During that hospitalization she was started on Cymbalta and Zyprexa and pain medications were continued. Over the last few days James has been experiencing worsening pain and mood lability. She presented to the ED two days prior to admission for passive SI but she was able to safety plan and declined inpatient psychiatric treatment. She represented yesterday to the ED via EMS after she reported to them that she took 12 tablets of Nucynta 50mg as a suicide attempt due to the stressors of chronic pain. On arrival in the ED she denied that the overdose was a suicide attempt and a 302 warrant was completed. She received activated charcoal and had no respiratory depression and was medically stable with ED provider noting that it would be safe for her to restart Nucynta on 01/17/2021. After admission to the unit last night she was unwilling to participate in intake assessments and began to take actions to hang herself using a blanket and a door but staff intervened before she was able to carry this out. She was placed on 1:1 as she was unable to safety contract and appeared distressed. She then had an episode of muscle movements with full awareness and no vital sign changes consistent with her history of psychogenic seizures. She then engaged in some self-harming behaviors by pulling her hair and attempting to bang her head but then accepted olanzapine 10mg IM and was able to sleep through most of the night. This morning she reports ongoing pain throughout her body which she attributes to her sickle cell disease. She endorses mood lability with periods of depression and stressors of "everything". She confirms that she has been prescribed Wellbutrin, Cymbalta, Buspar and Olanzapine but has only been picking up and taking her prescribed Nucynta. She is agreeable to restarting Cymbalta to help with pain and periods of depression. She also finds olanzapine helpful and experienced no side effects other than sleeping well after IM dose last night. She denies that the Nucynta ingestion was a suicide attempt stating that she did not intent to but was in a lot of pain and decided to take more pills to better manage the pain. She denies current SI and reports she feels safe and can go to staff if she begins to feel unsafe again. States her goals are to get restarted on psychiatric medication and develop more coping skills to manage her pain. Discussed goal of having her talk with staff if she has thoughts of self- harm so that we can help support her in finding alternative coping strategies to use which she is agreeable to trying. Psychiatric ROS notable for hx trauma, hx self-harm, no hx substance use, no hx emmett, no hx psychosis. Past Psychiatric History Previous Psych History: see HPI Current Psychiatric Diagnosis: BPD Outpatient Services: Has outpatient therapist and outpatient psychiatrist though states she has not seen her psychiatrist "in awhile" Previous Psych Admissions: multiple ~7, last at [facility] in September 2020. previously 3 at [facility], 3 [facility], [facility] near [facility] Do You Have Access To A Gun?: No History of Previous Suicide Attempt: Yes Describe Attempts in the Past: multiple via ingestion of pain medication and in 2018 via cutting Past Medication Trials: Cymbalta, buspar, Klonopin, lamictal, zoloft, lexapro, risperidone, olanzapine, Wellbutrin Additional Notes: Per last H&P on 09/16/[address] Mcgill: "additional gestures ages [age] include 2 pain med OD and a toxic ingestion of drinking lemonade mixed with bleach, recorded self doing it and sent to friend" Past Head Trauma/Neuro History History of Concussion/Seizure: No (hx psychogenic seziures) Allergies Allergy/AdvReac Type Severity Reaction Status Date / Time No Known Allergies Allergy Verified 01/16/21 13:55 Home Medications Medication Instructions Recorded Confirmed Type naloxone 4 mg/actuation nasal 1 spray INTRANASAL .Q3 MINUTES PRN 09/04/20 01/16/21 History spray (Narcan) tapentadol 50 mg tablet (Nucynta) 50 mg PO .TAPER DOSE 01/16/21 01/16/21 History Family History Family History of: Depression (per chart review) and Refuses To Discuss Alcohol History Hx of Alcohol Use Over the Past 12 Months: No AUDIT Total Score: 0 Smoking Use Have You Smoked or Used Tobacco Products in the Last 30 Days: No Smoking Status: Never smoker Substance History Hx of Prescription Med Misuse Over the Past 12 Months: Yes (overdose on medications) Hx of Over the Counter Med Misuse Over the Past 12 Months: No Hx of Inhalent Misuse Over the Past 12 Months: No Hx of Organic Substance Use Over the Past 12 Months: No Hx of Illegal Substances/Street Drug Use Over Past 12 Months: No Problems as a Result of Past Substance Use: None Identified Personal History Living Arrangements: Apartment (4 roommates) Born In: [facility] Employment Status: Student ([employer] senior studying [employer]) Beliefs That Will Affect Care: None Hx Traumatic Life Events: Yes Patient History Medical History Acute leg pain Borderline personality disorder Chest pain Chronic pain Depression Murmur, cardiac Nausea Overdose Person under investigation for COVID-19 Pneumonia Pseudoseizures Seizure-like activity Sickle cell anemia Sickle cell crisis Suicidal ideation Suicide gesture Surgical History No pertinent past surgical history Family History Mother Hypertension Father Ulcer Other Family history non-contributory Social History Smoking Status: Never smoker Tobacco Type: E-cigarettes / Vaping Second Hand Exposure: Yes; Hx Alcohol Use: Yes Alcohol type: other Hx Substance Use: No Preferred Language: [place] Islander Communication Ability: Effective Treating Engineer Required: No Beliefs That Will Affect Care: None marital status: Single Current Living Situation: Other Current Living Situation Comment: Pt states she lives with roommates 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 current occupation: [employer] major Feels Safe at Home: Yes Assistive Devices: None Review of Systems Review of Systems: All systems reviewed & are unremarkable except as noted in HPI & below (reports all over pain as 7/10 intensity ) Physical Exam Psychiatric: Orientation: alert and oriented x 3 Apperance: appropriately dressed and appropriately groomed Eye Contact: + fair eye contact Motor Behavior: + psychomotor agitation (rocking a bit and rubbing feet together due to pain ) Speech: normal rate/rhythm/volume of speech (brief, mostly responses to directed questions at times more expansive) Affect: + depressed affect Mood: + depressed mood (reports pain) Thought Process: goal directed thought process Thought Content: reality based without delusions Suicidal Thoughts: denies suicidal thoughts Homicidal Thoughts: denies homicidal thoughts Hallucinations: no auditory hallucinations and no visual hallucinations Cognition: recent memory grossly intact, remote memory grossly intact and language grossly intact; + attention not intact (distracted due to pain) Estimated Intelligence: consistent with education level Insight: + impaired insight Judgement: + impaired judgement Vital Signs (Past 24 Hours): Last Vital Signs Temp 37.5 C 01/17/21 06:00 Pulse 103 H 01/17/21 06:00 Resp 16 01/17/21 06:00 BP 87/52 L 01/17/21 06:00 Pulse Ox 99 01/16/21 14:00 Exam Statement: A physical exam was performed in the ED by Dr. Gongora for the purposes of medical clearance. I accept that physical as correct and adequate for the purposes of the inpatient physical exam. Results & Data ([facility]) Laboratory Results Laboratory Results - last 24 hr 01/16/21 01/16/21 01/16/21 11:10 11:10 11:10 WBC 9.84 RBC 2.55 L Hgb 9.1 L Hct 25.4 L MCV 99.6 MCH 35.7 H MCHC 35.8 RDW Std Deviation 68.6 H RDW Coeff of Nando 18.8 H Plt Count 463 H MPV 9.0 Immature Gran % (Auto) 0.4 Neut % (Auto) 51.7 Lymph % (Auto) 39.5 [place] % (Auto) 7.1 Eos % (Auto) 1.1 Baso % (Auto) 0.2 Neut # (Auto) 5.08 Lymph # (Auto) 3.89 H [place] # (Auto) 0.70 H Eos # (Auto) 0.11 Baso # (Auto) 0.02 Immature Gran # (Auto) 0.04 H Absolute Nucleated RBC 0.02 H Nucleated RBC % (auto) 0.2 Sodium 136 Potassium 3.2 L Chloride 105 Carbon Dioxide 29 Anion Gap 2.0 L BUN 3 L Creatinine 0.60 Est Cr Clr Drug Dosing Not Reportable Est GFR ( Amer) 150.0 Est GFR (Non-Af Amer) 129.4 BUN/Creatinine Ratio 4.7 L Glucose 112 H Calcium 9.4 Total Bilirubin 2.7 H AST 27 ALT 22 Alkaline Phosphatase 73 Total Protein 8.4 H Albumin 3.9 Globulin 4.5 H Albumin/Globulin Ratio 0.9 TSH 5.620 H Free T4 1.59 Urine Color Urine Appearance Urine pH Ur Specific [place] Urine Protein Urine Glucose (UA) Urine Ketones Urine Blood Urine Nitrite Urine Bilirubin Urine Urobilinogen Ur Leukocyte Esterase Urine WBC (Auto) Urine RBC (Auto) U Hyaline Cast (Auto) U Epithel Cells (Auto) Urine Bacteria (Auto) POC Ur Test Salicylates Cancelled Urine Opiates Screen Ur Methadone, Qual Acetaminophen Cancelled Urine Barbiturates Ur Phencyclidine (PCP) U Amphetamin/Meth Scrn MDMA (Ecstasy) Screen U Benzodiazepines Scrn Ur Cocaine Metabolite U Marijuana (THC) Screen Ethyl Alcohol mg/dL SARS-CoV-2, RNA, NAAT Miscellaneous Test Miscellaneous Test 2 01/16/21 01/16/21 01/16/21 11:10 11:10 12:47 WBC RBC Hgb Hct MCV MCH MCHC RDW Std Deviation RDW Coeff of Nando Plt Count MPV Immature Gran % (Auto) Neut % (Auto) Lymph % (Auto) [place] % (Auto) Eos % (Auto) Baso % (Auto) Neut # (Auto) Lymph # (Auto) [place] # (Auto) Eos # (Auto) Baso # (Auto) Immature Gran # (Auto) Absolute Nucleated RBC Nucleated RBC % (auto) Sodium Potassium Chloride Carbon Dioxide Anion Gap BUN Creatinine Est Cr Clr Drug Dosing Est GFR ( Amer) Est GFR (Non-Af Amer) BUN/Creatinine Ratio Glucose Calcium Total Bilirubin AST ALT Alkaline Phosphatase Total Protein Albumin Globulin Albumin/Globulin Ratio TSH Free T4 Urine Color [place] Urine Appearance Cloudy A Urine pH 6.0 Ur Specific [place] 1.011 Urine Protein Negative Urine Glucose (UA) Negative Urine Ketones Negative Urine Blood Negative Urine Nitrite Negative Urine Bilirubin Negative Urine Urobilinogen Negative Ur Leukocyte Esterase Trace H Urine WBC (Auto) 5-10 H Urine RBC (Auto) 0-4 U Hyaline Cast (Auto) 1-5 U Epithel Cells (Auto) >30 H Urine Bacteria (Auto) 1+ H POC Ur Test Salicylates Urine Opiates Screen Ur Methadone, Qual Acetaminophen Urine Barbiturates Ur Phencyclidine (PCP) U Amphetamin/Meth Scrn MDMA (Ecstasy) Screen U Benzodiazepines Scrn Ur Cocaine Metabolite U Marijuana (THC) Screen Ethyl Alcohol mg/dL < 3.0 SARS-CoV-2, RNA, NAAT Miscellaneous Test Pending Miscellaneous Test 2 Pending 01/16/21 01/16/21 01/16/21 12:47 12:47 12:47 WBC RBC Hgb Hct MCV MCH MCHC RDW Std Deviation RDW Coeff of [place] Plt Count MPV Immature Gran % (Auto) Neut % (Auto) Lymph % (Auto) [place] % (Auto) Eos % (Auto) Baso % (Auto) Neut # (Auto) Lymph # (Auto) [place] # (Auto) Eos # (Auto) Baso # (Auto) Immature Gran # (Auto) Absolute Nucleated RBC Nucleated RBC % (auto) Sodium Potassium Chloride Carbon Dioxide Anion Gap BUN Creatinine Est Cr Clr Drug Dosing Est GFR ( Amer) Est GFR (Non-Af Amer) BUN/Creatinine Ratio Glucose Calcium Total Bilirubin AST ALT Alkaline Phosphatase Total Protein Albumin Globulin Albumin/Globulin Ratio TSH Free T4 Urine Color Urine Appearance Urine pH Ur Specific [place] Urine Protein Urine Glucose (UA) Urine Ketones Urine Blood Urine Nitrite Urine Bilirubin Urine Urobilinogen Ur Leukocyte Esterase Urine WBC (Auto) Urine RBC (Auto) U Hyaline Cast (Auto) U Epithel Cells (Auto) Urine Bacteria (Auto) POC Ur Test NEG Salicylates Urine Opiates Screen Neg Ur Methadone, Qual Neg Acetaminophen Urine Barbiturates Neg Ur Phencyclidine (PCP) Neg U Amphetamin/Meth Scrn Neg MDMA (Ecstasy) Screen Neg U Benzodiazepines Scrn Neg Ur Cocaine Metabolite Neg U Marijuana (THC) Screen Neg Ethyl Alcohol mg/dL SARS-CoV-2, RNA, NAAT NEGATIVE Miscellaneous Test Miscellaneous Test 2 Current Inpatient Medications Current Inpatient Medications: Current Inpatient Medications Acetaminophen (Acetaminophen 325 Mg Tab) 650 mg PO Q4H PRN PRN Reason: Headache or Minor Fever Stop: 02/15/21 15:03 Al Hydrox/Mg Hydrox/Simethicone (Aluminum/Magnesium Susp 30 Ml Udc) 30 ml PO Q4H PRN PRN Reason: GI Upset Stop: 02/15/21 15:03 Bismuth Subsalicylate (Bismuth Subsalicylate Liqd 236 Ml) 15 ml PO PRN PRN PRN Reason: Loose Stool Stop: 02/15/21 15:03 Duloxetine HCl (Duloxetine Hcl 20 Mg Cap) 20 mg PO QAM WALTER Stop: 02/16/21 09:59 Hydroxyzine HCl (Hydroxyzine Hcl 25 Mg Tab) 50 mg PO HSZ PRN PRN Reason: Insomnia Stop: 02/15/21 15:03 Hydroxyzine HCl (Hydroxyzine Hcl 25 Mg Tab) 25 mg PO Q4H PRN PRN Reason: Anxiety Stop: 02/15/21 15:03 Lorazepam (Lorazepam 1 Mg Tab) 1 mg PO NOW PRN PRN Reason: Agitation Stop: 02/15/21 22:56 Magnesium Hydroxide (Magnesium Hydroxide Susp 30 Ml Udc) 30 ml PO DAILY PRN PRN Reason: Constipation Stop: 02/15/21 15:03 Olanzapine (Olanzapine 5 Mg Tablet) 5 mg PO DAILY PRN PRN Reason: Anxiety/Agitation Stop: 02/16/21 09:59 Sodium Chloride (Sodium Chloride 0.65% Na Soln 45 Ml ([place])) 1 - 2 sprays NA PRN PRN PRN Reason: Nasal Dryness/Congestion Stop: 02/15/21 15:03 Tapentadol (Tapentadol Hcl 50 Mg Tab) 50 mg PO BID WALTER Stop: 01/31/21 09:59
[2021-01-17] MEDS ORDERED: OLANZapine 10 MG/2.1 ML SDV IM PRN (11:01)
[2021-01-17] MEDS: ACETAMINOPHEN 325 MG TAB PO PRN (14:35)
[2021-01-17] MEDS: OLANZapine 5 MG TABLET PO PRN (20:30)
[2021-01-18] MEDS: ACETAMINOPHEN 325 MG TAB PO PRN ×2 (05:14→16:16)
[2021-01-18] MEDS: DULoxetine HCL 20 MG CAP PO SCH (09:31)
[2021-01-18] MEDS: TAPENTADOL HCL 50 MG TAB PO SCH ×2 (09:34→20:48)
--- NOTE | 2021-01-18 15:42 | Psychiatric Progress Note ---
Date of Service January 18, 2021 Impression / Recommendations Impression The patient is a 20 year old woman with a history of sickle cell anemia, chronic pain, BPD, depression, anxiety, trauma and functional neurological disorder who was admitted for intentional versus suicide attempt via ingestion of pain medication. Diagnostically consistent with BPD with periods of mood lability, chronic SI and self-harm complicated by her chronic pain from sickle cell anemia with hyperalgesia to opioids leading to concerns of misuse/overuse of pain medication and challenge of finding treatment options that can effectively and safely manage her pain. Given her self-harming episodes last night, suicidal gesture and brief nonepileptic seizure-like event which presents in the context of emotional stress inpatient treatment in needed at this time and she is on a 302. The patient is deemed unstable and requires psychiatric hospitalization for diagnostic clarification, safety and stabilization, medication management and development of further coping skills. Given that she was slightly more communicative today we reviewed the risks, benefits and alternatives to the medications as she consented to restarting yesterday. Review included but was not limited to black box warning for incre ased SI with Cymbalta. Also reviewed metabolic, EPS, acute dystonia, QTc risks with olanzapine should she continue to use this as a prn. If she uses it consistently will get lipid panel and glucose. Unable to complete AIMS due to her lack of cooperation but no evidence for involuntary movements or TD. MNPR-due to acuity of pain symptoms and periods of mood lability with self-harm which can be triggering to others and require low stimulation environment 01/18/21: remains difficult to engage in conversation as she prefers to by lying down with her eyes closed, demonstrating neurovegetative depressive symptoms vs regression. Plan: continue to attempt to engage in behavioral activation, continue medications which she is consenting to, goal of developing more coping skills-she identifies physical activity of walking as helpful, she is refusing to sign ROIs at this point. (1) Depression: (2) Sickle cell anemia: (3) Borderline personality disorder: (4) Chronic pain: (5) Opioid-induced hyperalgesia: (6) Psychogenic nonepileptic seizure: (7) Overdose: 01/18/21: continue with duloxetine and Nucynta. She is refusing to sign ROIs currently. Behaviorally appropriate. Safety linens only in her room. 01/17/21: The patient was admitted to the [facility] (locked inpatient mental health unit) on q15 min checks (behavioral with suicide precautions) for safety. The patient will participate in group, recreational, and milieu therapies and will be offered additional individual and family sessions as clinically appropriate. -Start duloxetine 20mg qAM -Restart prior to admission Nucynta 50 mg BID (per JEWEL INSERTER appears her prescriber has been tapering this). Will attempt to get records or speak with their office to confirm goals around pain medication use given history of misuse and opioid- induced hyperalgesia -Olanzapine 5 mg daily prn po or olanzapine 10mg IM for acute agitation Inventory Assets Strengths: student at [employer], has outpatient providers Needs: DBT, additional support for chronic pain Risk Factors Assessment Male: No : No Do You Have Access To A Gun?: No Health Problems: Yes Mental Health Diagnoses: Yes Substance Use Disorders: No Previous Attempt: Yes Family History of Suicide: No Previous Psychiatric Hospitalization: Yes Hopelessness: No Protective Factors Assessment Employed: Yes Stable Relationships: Yes Supportive Family: Yes Good Rapport with Provider: Yes Interval History Identifying Information SALLY PEOPLES is a 20-year-old woman and [employer] student who currently lives with roommates, has a history of sickle cell anemia, chronic pain, opioid- induced hyperalgesia, psychogenic nonepileptic seizures/functional neurological disorder, borderline personality disorder, depression and anxiety with history of multiple prior suicide attempts by overdose, self-harming behaviors and multiple prior psychiatric hospitalizations (last 09/2020) and was admitted on 01/16/21 15:04 on a 302 involuntary commitment for suicide attempt via overdose of prescribed pain medication Nucynta. Her 302 will on 01/21/21. Chief Complaint "I'm tired". Review of Systems Sleep Information Total Hours of Sleep: 6.25 Meal Information Percent Meal Consumed - Breakfast: 0 Percent Meal Consumed - Lunch: 0 Percent Meal Consumed - Dinner: 0 Nutrition Comment: pt. declined food but is drinking fluids Subjective Subjective Patient was seen & assessed and interval progress reviewed with treatment team nursing and social work. No further behavioral events of self-harm nor nonepileptic seizure-like events. Laid in the quiet room throughout yesterday and through all of today though did drink fluids and engage with staff briefly. This morning she endorses "tired" mood but denies SI and denies any thoughts of self-harm. Discussed if she would feel safe going back into her room instead of being in the quiet room and she reports she may like to do that at some point after she finishes napping. She states if thoughts of self-harm or SI reoccurs she will "go for a walk" or talk with staff. Discussed that we will continue with safety linens for now given events on Friday evening which she understands and agrees to. Further conversation is limited by her willingness to engage as she prefers to go back to sleep and closes her eyes. Remains isolative throughout the day. Physical Exam Psychiatric Orientation: alert and oriented x 3 Apperance: appropriately dressed and appropriately groomed Eye Contact: + fair eye contact Motor Behavior: + psychomotor retardation (napping most of the day) Speech: normal rate/rhythm/volume of speech (brief, mostly responses to directed questions at times more expansive) Affect: + constricted affect Mood: + depressed mood (reports fatigue) Thought Process: goal directed thought process Thought Content: reality based without delusions Suicidal Thoughts: denies suicidal thoughts Homicidal Thoughts: denies homicidal thoughts Hallucinations: no auditory hallucinations and no visual hallucinations Cognition: recent memory grossly intact, remote memory grossly intact and language grossly intact; + attention not intact Estimated Intelligence: consistent with education level Insight: + impaired insight Judgement: + impaired judgement Vital Signs (Past 24 Hours) Last Vital Signs Temp 36.4 C 01/17/21 20:21 Pulse 100 H 01/18/21 06:00 Resp 14 01/18/21 06:00 BP 107/70 01/18/21 06:00 Pulse Ox 99 01/16/21 14:00 Results & Data ([facility]) Current Inpatient Medications Current Inpatient Medications: Current Inpatient Medications Acetaminophen (Acetaminophen 325 Mg Tab) 650 mg PO Q4H PRN PRN Reason: Headache or Minor Fever Stop: 02/15/21 15:03 Last Admin: 01/18/21 05:14 Dose: 650 mg Documented by: Al Hydrox/Mg Hydrox/Simethicone (Aluminum/Magnesium Susp 30 Ml Udc) 30 ml PO Q4H PRN PRN Reason: GI Upset Stop: 02/15/21 15:03 Bismuth Subsalicylate (Bismuth Subsalicylate Liqd 236 Ml) 15 ml PO PRN PRN PRN Reason: Loose Stool Stop: 02/15/21 15:03 Duloxetine HCl (Duloxetine Hcl 20 Mg Cap) 20 mg PO QAM WALTER Stop: 02/16/21 09:59 Last Admin: 01/18/21 09:31 Dose: 20 mg Documented by: Hydroxyzine HCl (Hydroxyzine Hcl 25 Mg Tab) 50 mg PO HSZ PRN PRN Reason: Insomnia Stop: 02/15/21 15:03 Hydroxyzine HCl (Hydroxyzine Hcl 25 Mg Tab) 25 mg PO Q4H PRN PRN Reason: Anxiety Stop: 02/15/21 15:03 Magnesium Hydroxide (Magnesium Hydroxide Susp 30 Ml Udc) 30 ml PO DAILY PRN PRN Reason: Constipation Stop: 02/15/21 15:03 Olanzapine (Olanzapine 5 Mg Tablet) 5 mg PO DAILY PRN PRN Reason: Anxiety/Agitation Stop: 02/16/21 09:59 Last Admin: 01/17/21 20:30 Dose: 5 mg Documented by: Olanzapine (Olanzapine 10 Mg/2.1 Ml Sdv) 10 mg IM DAILY PRN PRN Reason: Anxiety/Agitation Stop: 02/16/21 11:14 Sodium Chloride (Sodium Chloride 0.65% Na Soln 45 Ml ([place])) 1 - 2 sprays NA PRN PRN PRN Reason: Nasal Dryness/Congestion Stop: 02/15/21 15:03 Tapentadol (Tapentadol Hcl 50 Mg Tab) 50 mg PO BID WALTER Stop: 01/31/21 09:59 Last Admin: 01/18/21 09:34 Dose: 50 mg Documented by: Mental Health & Subst Abuse Tx Psychiatrist Name of Psychiatrist: Dr. Valverde Psychiatrist's Psychiatric Appointment Comment: [address], [address], [place] Therapist Name of Therapist: Dr. Goyal- [facility] Therapist's Therapy Appointment Comment: [address] [place], [place] Post Discharge Appointments Primary Care Physician Name Of Family Doctor: [facility]- Dr. German Primary Care Provider Appointment Comment: [address] [place], [place] Contact Information Discharge Discharge Address: [address] [place] [address]. [address] [place], [place] (1) Depression Active/Remission status: currently active Depression Type: major depressive disorder Major depression episode severity: severe Major depression recur rence: recurrent Psychotic features: without psychotic features Qualified Code(s): F33.2 - Major depressive disorder, recurrent severe without psychotic features (2) Sickle cell anemia Sickle-cell associated disorders: with unspecified crisis Qualified Code(s): D57.00 - Hb-SS disease with crisis, unspecified
[2021-01-18] MEDS: OLANZapine 5 MG TABLET PO PRN (16:21)
[2021-01-19] MEDS: ACETAMINOPHEN 325 MG TAB PO PRN ×2 (07:01→16:44)
[2021-01-19] MEDS: DULoxetine HCL 20 MG CAP PO SCH (08:52)
[2021-01-19] MEDS: TAPENTADOL HCL 50 MG TAB PO SCH ×2 (08:52→21:12)
--- NOTE | 2021-01-19 16:17 | Psychiatric Progress Note ---
Date of Service January 19, 2021 Impression / Recommendations Impression The patient is a 20 year old woman with a history of sickle cell anemia, chronic pain, BPD, depression, anxiety, trauma and functional neurological disorder who was admitted for intentional versus suicide attempt via ingestion of pain medication. Diagnostically consistent with BPD with periods of mood lability, chronic SI and self-harm complicated by her chronic pain from sickle cell anemia with hyperalgesia to opioids leading to concerns of misuse/overuse of pain medication and challenge of finding treatment options that can effectively and safely manage her pain. Given her self-harming episodes last night, suicidal gesture and brief nonepileptic seizure-like event which presents in the context of emotional stress inpatient treatment in needed at this time and she is on a 302. The patient is deemed unstable and requires psychiatric hospitalization for diagnostic clarification, safety and stabilization, medication management and development of further coping skills. MNPR-due to acuity of pain symptoms and periods of mood lability with self-harm which can be triggering to others and require low stimulation environment 01/19/21: Improved energy level and mood which she attributes to restarting Cymbalta which she is tolerating well. She's future-oriented today without any SI and no self-harm urges and she's willing to work on a safety plan. Plan: need to ensure she has outpatient appointments, continue with medications, recommended she talk with her primary care provider about other pain management options such as pain clinic referral so that she can consider additional coping skills for pain such as yoga, mindfulness, etc to help reduce acute and long- term risk of mood symptoms and self-harm. (1) Depression: (2) Sickle cell anemia: (3) Borderline personality disorder: (4) Chronic pain: (5) Opioid-induced hyperalgesia: (6) Psychogenic nonepileptic seizure: (7) Overdose: 01/19/21: continue current medications which she is tolerating well and finding helpful. Can have normal linens. She signed ROIs and social work is confirming her outpatient therapy intake and will attempt to set up follow-up with her psychiatrist. She is willing to talk with her PCP about pain clinic referral versus additional non-pharmacologic options for coping with pain such as yoga or mindfulness as well as exercise which she finds helpful. 01/18/21: continue with duloxetine and Nucynta. She is refusing to sign ROIs currently. Behaviorally appropriate. Safety linens only in her room. 01/17/21: The patient was admitted to the [facility] ([facility] inpatient mental health unit) on q15 min checks (behavioral with suicide precautions) for safety. The patient will participate in group, recreational, and milieu therapies and will be offered additional individual and family sessions as clinically appropriate. -Start duloxetine 20mg qAM -Restart prior to admission Nucynta 50 mg BID -Olanzapine 5 mg daily prn po or olanzapine 10mg IM for acute agitation Inventory Assets Strengths: student at [employer], has outpatient providers Needs: DBT, additional support for chronic pain Risk Factors Assessment Male: No : No Do You Have Access To A Gun?: No Health Problems: Yes Mental Health Diagnoses: Yes Substance Use Disorders: No Previous Attempt: Yes Family History of Suicide: No Previous Psychiatric Hospitalization: Yes Hopelessness: No Protective Factors Assessment Employed: Yes Stable Relationships: Yes Supportive Family: Yes Good Rapport with Provider: Yes Interval History Identifying Information SALLY PEOPLES is a 20-year-old woman and [employer] student who currently lives with roommates, has a history of sickle cell anemia, chronic pain, opioid- induced hyperalgesia, psychogenic nonepileptic seizures/functional neurological disorder, borderline personality disorder, depression and anxiety with history of multiple prior suicide attempts by overdose, self-harming behaviors and multiple prior psychiatric hospitalizations (last 09/2020) and was admitted on 01/16/21 15:04 on a 302 involuntary commitment for suicide attempt via overdose of prescribed pain medication Nucynta. Her 302 will on 01/21/21. Chief Complaint "I feel calmer and less high strung". Review of Systems Sleep Information Total Hours of Sleep: 9.5 Sleep Comments: pt appeared to sleep in the quiet room for 2 hrs during evening shifts. pt on q-15 minute checks Meal Information Percent Meal Consumed - Breakfast: 50 Percent Meal Consumed - Lunch: 0 Percent Meal Consumed - Dinner: 0 Nutrition Comment: Patient in room resting. Subjective Subjective Patient was seen & assessed and interval progress reviewed with treatment team nursing and social work. last night she attended a group and was more engaged with staff and walked in the halls. Today she attended some of the groups, ate meals and has been more engaged. She signed ROIs for social work. On my assessment she is awake and relaxing in the quiet room. She states her preference for spending time in the quiet room since it's quieter and calm then her room on the unit. She is reading a book series and enjoying this. She reports her mood is improving "ok" and that she feels calmer and "less high strung". She reports improvement in her pain as well and appears comfortable. She vocalizes her desire to discharge soon as she is focused on her final exams next week and "wants time to work on my school work" acknowledging that "the longer I'm here the more school work will pile up and it will cause more anxiety". She continues to deny SI and denies any urges for self-harm. She is thinking about spending winter break with her sister in [place] as she isn't sure she's be able to get back into the [place] if she returned home to see her mother in [place]. Discussed that she has a planned appointment for therapy on Jan 23 next week and is looking forward to this. Stated she was willing to discuss option of pain management clinic with her PCP to see if this could be appropriate. Physical Exam Psychiatric Orientation: alert and oriented x 3 Apperance: appropriately dressed and appropriately groomed Eye Contact: good eye contact Motor Behavior: no abnormal motor movements Speech: normal rate/rhythm/volume of speech Affect: + constricted affect Mood: + anxious mood; no depressed mood Thought Process: goal directed thought process Thought Content: reality based without delusions Suicidal Thoughts: denies suicidal thoughts Homicidal Thoughts: denies homicidal thoughts Hallucinations: no auditory hallucinations and no visual hallucinations Cognition: attention grossly intact and language grossly intact Estimated Intelligence: consistent with education level Insight: + fair insight Judgement: + fair judgement Vital Signs (Past 24 Hours) Last Vital Signs Temp 36.6 C 01/19/21 10:54 Pulse 74 01/19/21 10:54 Resp 16 01/19/21 10:54 BP 107/75 01/19/21 10:54 Pulse Ox 99 01/16/21 14:00 Results & Data ([facility]) Current Inpatient Medications Current Inpatient Medications: Current Inpatient Medications Acetaminophen (Acetaminophen 325 Mg Tab) 650 mg PO Q4H PRN PRN Reason: Headache or Minor Fever Stop: 02/15/21 15:03 Last Admin: 01/19/21 07:01 Dose: 650 mg Documented by: Al Hydrox/Mg Hydrox/Simethicone (Aluminum/Magnesium Susp 30 Ml Udc) 30 ml PO Q4H PRN PRN Reason: GI Upset Stop: 02/15/21 15:03 Bismuth Subsalicylate (Bismuth Subsalicylate Liqd 236 Ml) 15 ml PO PRN PRN PRN Reason: Loose Stool Stop: 02/15/21 15:03 Duloxetine HCl (Duloxetine Hcl 20 Mg Cap) 20 mg PO QAM WALTER Stop: 02/16/21 09:59 Last Admin: 01/19/21 08:52 Dose: 20 mg Documented by: Hydroxyzine HCl (Hydroxyzine Hcl 25 Mg Tab) 50 mg PO HSZ PRN PRN Reason: Insomnia Stop: 02/15/21 15:03 Hydroxyzine HCl (Hydroxyzine Hcl 25 Mg Tab) 25 mg PO Q4H PRN PRN Reason: Anxiety Stop: 02/15/21 15:03 Magnesium Hydroxide (Magnesium Hydroxide Susp 30 Ml Udc) 30 ml PO DAILY PRN PRN Reason: Constipation Stop: 02/15/21 15:03 Olanzapine (Olanzapine 5 Mg Tablet) 5 mg PO DAILY PRN PRN Reason: Anxiety/Agitation Stop: 02/16/21 09:59 Last Admin: 01/18/21 16:21 Dose: 5 mg Documented by: Olanzapine (Olanzapine 10 Mg/2.1 Ml Sdv) 10 mg IM DAILY PRN PRN Reason: Anxiety/Agitation Stop: 02/16/21 11:14 Sodium Chloride (Sodium Chloride 0.65% Na Soln 45 Ml ([place])) 1 - 2 sprays NA PRN PRN PRN Reason: Nasal Dryness/Congestion Stop: 02/15/21 15:03 Tapentadol (Tapentadol Hcl 50 Mg Tab) 50 mg PO BID WALTER Stop: 01/31/21 09:59 Last Admin: 01/19/21 08:52 Dose: 50 mg Documented by: Mental Health & Subst Abuse Tx Psychiatrist Name of Psychiatrist: Dr. Valverde Psychiatrist's Psychiatric Appointment Comment: [address], [address], [place] Therapist Name of Therapist: Dr. Mir [facility] Therapist's Therapy Appointment Comment: [address] [place], [place] Post Discharge Appointments Primary Care Physician Name Of Family Doctor: [facility]- Dr. German Primary Care Date of Appointment with PCP: 02/07/21 Time of Appointment with PCP: 11:20am Provider Appointment Comment: [address] [place], [place] Other #1: Name of Aftercare Appointment: [facility] Phone Number of Aftercare Appointment: [phone] Date of Aftercare Appointment: 01/23/21 Time of Aftercare Appointment: 2pm Aftercare Appointment Comment: [email or web address]: Name of Aftercare Appointment: [facility] Phone Number of Aftercare Appointment: [phone] Date of Aftercare Appointment: 01/25/21 Time of Aftercare Appointment: 11:30am Aftercare Appointment Comment: [address], [address], [place], [place] Contact Information Discharge Discharge Address: [address] [place] [address] [address] [place], [place] (1) Depression Active/Remission status: currently active Depression Type: major depressive disorder Major depression episode severity: severe Major depression recurrence: recurrent Psychotic features: without psychotic features Qualified Code(s): F33.2 - Major depressive disorder, recurrent severe without psychotic features (2) Sickle cell anemia Sickle-cell associated disorders: with unspecified crisis Qualified Code(s): D57.00 - Hb-SS disease with crisis, unspecified
[2021-01-19] MEDS ORDERED: IBUPROFEN 600 MG TAB PO PRN (17:11)
[2021-01-20] MEDS: TAPENTADOL HCL 50 MG TAB PO SCH (09:04)
[2021-01-20] MEDS: DULoxetine HCL 20 MG CAP PO SCH (09:05)
--- NOTE | 2021-01-20 11:07 | Discharge Summary ---
Date of Service January 20, 2021 History of Present Illness James is a 20 yo woman and [employer] senior with a history of sickle cell anemia, chronic pain, opioid-induced hyperalgesia, psychogenic nonepileptic seizures/functional neurological disorder, borderline personality disorder, depression and anxiety with history of multiple prior suicide attempts by overdose, self-harming behaviors and multiple prior psychiatric hospitalizations (last 09/2020) and was admitted on 01/16/21 15:04 on a 302 involuntary commitment for suicide attempt via overdose of prescribed pain medication Nucynta. James was experiencing significant pain this morning, rated as 7 out of 10 and described as "everywhere" which limited her ability to participate in a thorough intake assessment but she was able to answer some questions and the remaining information is gathered from chart review. James has a history of taking additional doses of pain medication sometimes in the context of trying to manage her acute pain crises and sometimes due to suicide attempts, most often due to feeling overwhelmed from pain. She was last admitted medically November 26- for management of her pain due to a sickle cell pain crisis. She was last admitted to inpatient psychiatry in September 2020 for possible suicide attempt of ingestion of additional pain medications (unclear at that time it was misuse or intentional overdose). At that time the recommendation was that she continue to see her psychiatrist and therapist and engage with a DBT program. At that time she declined offers for referrals to specialized pain management programs and declined referrals for DBT to treat her BPD. During that hospitalization she was started on Cymbalta and Zyprexa and pain medications were continued. Over the last few days James has been experiencing worsening pain and mood lability. She presented to the ED two days prior to admission for passive SI but she was able to safety plan and declined inpatient psychiatric treatment. She represented yesterday to the ED via EMS after she reported to them that she took 12 tablets of Nucynta 50mg as a suicide attempt due to the stressors of chronic pain. On arrival in the ED she denied that the overdose was a suicide attempt and a 302 warrant was completed. She received activated charcoal and had no resp iratory depression and was medically stable with ED provider noting that it would be safe for her to restart Nucynta on 01/17/2021. After admission to the unit last night she was unwilling to participate in intake assessments and began to take actions to hang herself using a blanket and a door but staff intervened before she was able to carry this out. She was placed on 1:1 as she was unable to safety contract and appeared distressed. She then had an episode of muscle movements with full awareness and no vital sign changes consistent with her history of psychogenic seizures. She then engaged in some self-harming behaviors by pulling her hair and attempting to bang her head but then accepted olanzapine 10mg IM and was able to sleep through most of the night. This morning she reports ongoing pain throughout her body which she attributes to her sickle cell disease. She endorses mood lability with periods of depression and stressors of "everything". She confirms that she has been prescr ibed Wellbutrin, Cymbalta, Buspar and Olanzapine but has only been picking up and taking her prescribed Nucynta. She is agreeable to restarting Cymbalta to help with pain and periods of depression. She also finds olanzapine helpful and experienced no side effects other than sleeping well after IM dose last night. She denies that the Nucynta ingestion was a suicide attempt stating that she did not intent to but was in a lot of pain and decided to take more pills to better manage the pain. She denies current SI and reports she feels safe and can go to staff if she begins to feel unsafe again. States her goals are to get restarted on psychiatric medication and develop more coping skills to manage her pain. Discussed goal of having her talk with staff if she has thoughts of self- harm so that we can help support her in finding alternative coping strategies to use which she is agreeable to trying. Psychiatric ROS notable for hx trauma, hx self-harm, no hx substance use, no hx emmett, no hx psychosis. Physical Exam Psychiatric See admission H&P and DOD summary. Vital Signs (Past 24 Hours) Last Vital Signs Temp 36.9 C 01/20/21 06:40 Pulse 86 01/20/21 06:41 Resp 16 01/20/21 06:40 BP 86/52 L 01/20/21 06:41 Pulse Ox 99 01/16/21 14:00 Principal Diagnosis major depressive disorder, recurrent Psychiatric Data See daily stay summary. In short, safety was maintained and the patient was cooperative with care. Medication changes included restart of Cymbalta and they tolerated this well. A safety plan was completed prior to discharge. Day of Discharge Assessment Today the patient voices readiness for discharge, mainly as feels need to prepare for finals and believes that failing would worsen her mental health. They note improvement in mood in that they consistently deny thoughts to harm self or others. Thoughts remain organized and they are improved from admission. There is no evidence of psychosis. They agree to take mediations as prescribed and keep follow-up appointments, unfortunately the patient has a history of noncompliance with Cymbalta and pharmacy confirms she has multiple months of scripts on file as only picks up Nucynta. Given she is high risk of suicidal gesture, sent 1 week supply to be dispensed until she can confirm an appointment with her outpatient psychiatrist. They are stable for discharge to outpatient level of care as risk factors that can be mitigated have been addressed. Ongoing outpatient therapy with a dialectical component is the core treatment for self- harm related to borderline personality disorder and ongoing inpatient hospitalization would be counter-therapeutic given her desire to finish classes. She has recurrent hospitalizations related to her sickle cell and somatic complaints and requires the prescription medication Nucynta. It is being tapered but remains medically necessary for her to have access to this medication. 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 Risk Factors Assessment Male: No : No Do You Have Access To A Gun?: No Health Problems: Yes Mental Health Diagnoses: Yes Substance Use Disorders: No Previous Attempt: Yes Family History of Suicide: No Previous Psychiatric Hospitalization: Yes Hopelessness: No Protective Factors Assessment Employed: Yes Stable Relationships: Yes Supportive Family: Yes Good Rapport with Provider: Yes Tobacco Cessation at Discharge Tobacco Cessation Medication Prescribed at Discharge: Not Applicable/Non-Smoker Total Time Total Time Includes: Examination of the patient, Discharge Planning and Medication Reconciliation Discharge Data Lab Results 01/16/21 01/16/21 01/16/21 11:10 11:10 11:10 WBC 9.84 RBC 2.55 L Hgb 9.1 L Hct 25.4 L MCV 99.6 MCH 35.7 H MCHC 35.8 RDW Std Deviation 68.6 H RDW Coeff of Nando 18.8 H Plt Count 463 H MPV 9.0 Immature Gran % (Auto) 0.4 Neut % (Auto) 51.7 Lymph % (Auto) 39.5 [place] % (Auto) 7.1 Eos % (Auto) 1.1 Baso % (Auto) 0.2 Neut # (Auto) 5.08 Lymph # (Auto) 3.89 H [place] # (Auto) 0.70 H Eos # (Auto) 0.11 Baso # (Auto) 0.02 Immature Gran # (Auto) 0.04 H Absolute Nucleated RBC 0.02 H Nucleated RBC % (auto) 0.2 Sodium 136 Potassium 3.2 L Chloride 105 Carbon Dioxide 29 Anion Gap 2.0 L BUN 3 L Creatinine 0.60 Est Cr Clr Drug Dosing Not Reportable Est GFR ( Amer) 150.0 Est GFR (Non-Af Amer) 129.4 BUN/Creatinine Ratio 4.7 L Glucose 112 H Calcium 9.4 Total Bilirubin 2.7 H AST 27 ALT 22 Alkaline Phosphatase 73 Total Protein 8.4 H Albumin 3.9 Globulin 4.5 H Albumin/Globulin Ratio 0.9 TSH 5.620 H Free T4 1.59 Urine Color Urine Appearance Urine pH Ur Specific [place] Urine Protein Urine Glucose (UA) Urine Ketones Urine Blood Urine Nitrite Urine Bilirubin Urine Urobilinogen Ur Leukocyte Esterase Urine WBC (Auto) Urine RBC (Auto) U Hyaline Cast (Auto) U Epithel Cells (Auto) Urine Bacteria (Auto) POC Ur Test Salicylates Cancelled Urine Opiates Screen Ur Methadone, Qual Acetaminophen Cancelled Urine Barbiturates Ur Phencyclidine (PCP) U Amphetamin/Meth Scrn MDMA (Ecstasy) Screen U Benzodiazepines Scrn Ur Cocaine Metabolite U Marijuana (THC) Screen Ethyl Alcohol mg/dL SARS-CoV-2, RNA, NAAT Miscellaneous Test Miscellaneous Test 2 01/16/21 01/16/21 01/16/21 11:10 11:10 12:47 WBC RBC Hgb Hct MCV MCH MCHC RDW Std Deviation RDW Coeff of Nando Plt Count MPV Immature Gran % (Auto) Neut % (Auto) Lymph % (Auto) [place] % (Auto) Eos % (Auto) Baso % (Auto) Neut # (Auto) Lymph # (Auto) [place] # (Auto) Eos # (Auto) Baso # (Auto) Immature Gran # (Auto) Absolute Nucleated RBC Nucleated RBC % (auto) Sodium Potassium Chloride Carbon Dioxide Anion Gap BUN Creatinine Est Cr Clr Drug Dosing Est GFR ( Amer) Est GFR (Non-Af Amer) BUN/Creatinine Ratio Glucose Calcium Total Bilirubin AST ALT Alkaline Phosphatase Total Protein Albumin Globulin Albumin/Globulin Ratio TSH Free T4 Urine Color [place] Urine Appearance Cloudy A Urine pH 6.0 Ur Specific [place] 1.011 Urine Protein Negative Urine Glucose (UA) Negative Urine Ketones Negative Urine Blood Negative Urine Nitrite Negative Urine Bilirubin Negative Urine Urobilinogen Negative Ur Leukocyte Esterase Trace H Urine WBC (Auto) 5-10 H Urine RBC (Auto) 0-4 U Hyaline Cast (Auto) 1-5 U Epithel Cells (Auto) >30 H Urine Bacteria (Auto) 1+ H POC Ur Test Salicylates Urine Opiates Screen Ur Methadone, Qual Acetaminophen Urine Barbiturates Ur Phencyclidine (PCP) U Amphetamin/Meth Scrn MDMA (Ecstasy) Screen U Benzodiazepines Scrn Ur Cocaine Metabolite U Marijuana (THC) Screen Ethyl Alcohol mg/dL < 3.0 SARS-CoV-2, RNA, NAAT Miscellaneous Test REPORT Miscellaneous Test 2 REPORT 01/16/21 01/16/21 01/16/21 12:47 12:47 12:47 WBC RBC Hgb Hct MCV MCH MCHC RDW Std Deviation RDW Coeff of [place] Plt Count MPV Immature Gran % (Auto) Neut % (Auto) Lymph % (Auto) [place] % (Auto) Eos % (Auto) Baso % (Auto) Neut # (Auto) Lymph # (Auto) [place] # (Auto) Eos # (Auto) Baso # (Auto) Immature Gran # (Auto) Absolute Nucleated RBC Nucleated RBC % (auto) Sodium Potassium Chloride Carbon Dioxide Anion Gap BUN Creatinine Est Cr Clr Drug Dosing Est GFR ( Amer) Est GFR (Non-Af Amer) BUN/Creatinine Ratio Glucose Calcium Total Bilirubin AST ALT Alkaline Phosphatase Total Protein Albumin Globulin Albumin/Globulin Ratio TSH Free T4 Urine Color Urine Appearance Urine pH Ur Specific [place] Urine Protein Urine Glucose (UA) Urine Ketones Urine Blood Urine Nitrite Urine Bilirubin Urine Urobilinogen Ur Leukocyte Esterase Urine WBC (Auto) Urine RBC (Auto) U Hyaline Cast (Auto) U Epithel Cells (Auto) Urine Bacteria (Auto) POC Ur Test NEG Salicylates Urine Opiates Screen Neg Ur Methadone, Qual Neg Acetaminophen Urine Barbiturates Neg Ur Phencyclidine (PCP) Neg U Amphetamin/Meth Scrn Neg MDMA (Ecstasy) Screen Neg U Benzodiazepines Scrn Neg Ur Cocaine Metabolite Neg U Marijuana (THC) Screen Neg Ethyl Alcohol mg/dL SARS-CoV-2, RNA, NAAT NEGATIVE Miscellaneous Test Miscellaneous Test 2 Hospital Course (1) Depression: (2) Sickle cell anemia: (3) Borderline personality disorder: (4) Chronic pain: (5) Opioid-induced hyperalgesia: (6) Psychogenic nonepileptic seizure: (7) Overdose: 01/19/21: continue current medications which she is tolerating well and finding helpful. Can have normal linens. She signed ROIs and social work is confirming her outpatient therapy intake and will attempt to set up follow-up with her psychiatrist. She is willing to talk with her PCP about pain clinic referral versus additional non-pharmacologic options for coping with pain such as yoga or mindfulness as well as exercise which she finds helpful. 01/18/21: continue with duloxetine and Nucynta. She is refusing to sign ROIs currently. Behaviorally appropriate. Safety linens only in her room. 01/17/21: The patient was admitted to the [facility] ([facility] inpatient mental health unit) on q15 min checks (behavioral with suicide precautions) for safety. The patient will participate in group, recreational, and milieu therapies and will be offered additional individual and family sessions as clinically appropriate. -Start duloxetine 20mg qAM -Restart prior to admission Nucynta 50 mg BID -Olanzapine 5 mg daily prn po or olanzapine 10mg IM for acute agitation Mental Health & Subst Abuse Tx Psychiatrist Name of Psychiatrist: Dr. Valverde Psychiatrist's Psychiatric Appointment Comment: [address], [address], [address], [facility] [place] can Psychiatrist Release of Information: Obtained, Reviewed and Signed Therapist Name of Therapist: Jo Ann Therapist's Date of Therapist Appointment: 01/25/21 Time of Therapist Appointment: 11:30AM Therapy Appointment Comment: [address], [address], [place] Therapist Release of Information: Obtained, Reviewed and Signed Post Discharge Appointments Primary Care Physician Name Of Family Doctor: Connor Cervantes- Dr. German Primary Care Date of Appointment with PCP: 02/07/21 Time of Appointment with PCP: 11:20am Provider Appointment Comment: [address] [facility]. [place], [place] Primary Care Release of Information: Obtained, Reviewed and Signed Smoking Cessation Counseling Tobacco Cessation Medication Prescribed at Discharge: Not Applicable/Non-Smoker Other #1: Name of Aftercare Appointment: [facility] Phone Number of Aftercare Appointment: [phone] Date of Aftercare Appointment: 01/23/21 Time of Aftercare Appointment: 2pm Aftercare Appointment Comment: [email or web address] Name of Aftercare Appointment: [facility] Phone Number of Aftercare Appointment: [phone] Date of Aftercare Appointment: 01/25/21 Time of Aftercare Appointment: 11:30am Aftercare Appointment Comment: [address], [address], [place], [place] Contact Information Discharge Discharge [address]: [address] [place] [address]. [address] [place], [place] Discharge Plan Discharge Items Patient Disposition: Home - Self-Care Reason For Visit: BPD Discharge Diagnosis: major depressive disorder, recurrent Activity: Resume your previous activity Non-emergency contact: Primary Care Provider, Psychiatrist and Therapist Call non-emergency contact if: you have any medication questions and your symptoms worsen Follow-up/Referrals: Zamzam Bailey MD [Primary Care Provider] - Diet: Regular Addtl Attending Provider Instructions: SPECIAL CARE INSTRUCTIONS: 1. Follow through with your scheduled aftercare appointments. If unable to keep an appointment, please call to reschedule. 2. Take your medication only as prescribed. Medication should not be changed or stopped without the approval of your doctor. In the event of worsening symptoms or concerns about side effects, contact your doctor immediately. 3. Utilize new healthy coping skills, anger management skills, and stress management skills learned during your hospitalization. Journal feelings and process them with a support person. Identify stressors or situations that may result in relapse, deterioration or inappropriate behaviors and develop a plan to deal with those issues. 4. If your coping skills are ineffective and you are in crisis, contact your outpatient providers for direction. If unable to reach your providers, please call the [facility] CRISIS LINE AT , go to the [facility] walk-in center at [address], [address], [place], or go to the closest Emergency Room. 5. Avoid alcohol and un-prescribed drugs. 6. You have been provided with the Mental Health Advance Directives Pamphlet for your review. 7. Your condition is stable for discharge to outpatient level of care, but recovery is an ongoing process. Ifthoughts to harm yourself or others return, follow the safety plan developed during your stay. Planning for a safe return home includes securing weapons. Our treatment team recommends weaponsbe removed from the home until your outpatient provider reassesses your progress. In rare cases where the items themselvescannot be removed, guns and ammunitionshould be secured separatelyand keys stored by a reliable personoutside of the home. If you were admitted on an involuntary commitment, the police or other legal authorities may be involved in this process. AFTERCARE APPOINTMENTS: * Please call your insurance company prior to your scheduled appointment to confirm your aftercare providers are covered. Take your insurance information to your appointments. WHO TO CALL AND WHEN: Medical Emergencies: For questions or emergencies related to your hospital stay, please contact the Inpatient Behavioral Health Unit at [phone]. A supervisor pit and auxiliaries is on-call 09/09 for the Behavioral Health Unit for emergencies At any time you feel your situation is an emergency, you may also call 911 immediately. Pending Studies at Discharge: No Stand-Alone Forms: My [facility], Smoking Cessation Medications and DC Order Prescriptions: New duloxetine 20 mg Capsule,Delayed Release(Dr/Ec) 20 mg PO QAM 7 Days Qty: 7 RF: 0 Continued Narcan 4 mg/actuation spray,non-aerosol 1 spray intranasal .Q3 MINUTES PRN (Reason: OVERSEDATION) RF: 0 Nucynta 50 mg tablet 50 mg PO .TAPER DOSE RF: 0 Discharge Orders: Discharge Order (Routine); Ordered 01/20/21 Ordered By: Ailyn Mcgill Admission Data Admit Date/Time: 01/16/21 15:04 Attending Provider: Ailyn Mcgill Admit Provider: Norma Squires Primary Care Provider: Zamzam Bailey Other Interventions: PSY Interdisciplinary Discharge Planning Last Done: 01/20/21 11:12 Coding Level of Care Code 83619 D/C day mgmt > 30 min Diagnoses Depression F33.2 Active/Remission status: currently active Depression Type: major depressive disorder Major depression episode severity: severe Major depression recurrence: recurrent Psychotic features: without psychotic features Sickle cell anemia D57.00 Sickle-cell associated disorders: with unspecified crisis Borderline personality disorder F60.3 Chronic pain G89.29 Opioid-induced hyperalgesia R20.8; T40.2X5A Psychogenic nonepileptic seizure F44.5 Overdose T50.901A
== END 2021-01-20 12:05 | disposition home or self-care (01) | DRG 885 ==
LOC: ED 10:07 → 3S 15:04 → SUATTDRO 15:04 → 3S 15:29

== ENCOUNTER 2021-01-31 12:57 | Inpatient (IN) ==
[2021-01-31] MEDS ORDERED: ONDANSETRON INJ 2 MG/ML 2 ML VIAL IV STA (13:22)
[2021-01-31] MEDS ORDERED: SODIUM CHLORIDE 0.9% 1000ML 1,000 ML IV STA (13:22)
--- NOTE | 2021-01-31 13:30 | Emergency Department Note ---
Impression & Plan Sickle cell anemia, COVID-19 ED Provider Note NAME: ADÁN PEOPLES AGE: 20 SEX: F : 2000 ARRIVES VIA: Walk-In INFORMANT: Patient, ED PROVIDER(S): Mello Hyatt DO CHIEF COMPLAINT: Pain HPI: The patient is a 20-year-old female who presented to emergency department for an evaluation of difficulty with pain. The patient has a history of sickle cell disease. The patient states that she has had ongoing pain including chest pain and body aches over the last 3 days. She did notice a fever but she took no medication for fever today. She called her primary care physician and was advised to go to the emergency department. The patient is taken her usual outpatient medication without relief of her symptoms. She denies having any hemoptysis. She denies having any significant abdominal pain. She does compl ain of extremity pain as well. She states her pain is moderate to severe and worsens with any ambulation or movement. ROS: See above HPI for pertinent positives & negatives. A total of 10 systems reviewed and were otherwise negative. PAST MEDICAL HISTORY: See Below PAST SURGICAL HISTORY: See Below FAMILY HISTORY: See Below SOCIAL HISTORY: See Below HOME MEDICATIONS: See Below ALLERGIES: See Below VITALS: See Below PHYSICAL EXAMINATION: GENERAL: Patient is awake alert in no acute distress patient is resting comfortably and showing no signs of anxiety EYES: The conjunctivae are clear. The pupils are round and reactive. EARS, NOSE, MOUTH AND THROAT: The nose is without any evidence of any deformity. NECK: The neck is nontender and supple. RESPIRATORY: Normal respiratory effort is noted there is no evidence of wheezing rhonchi or rales CARDIOVASCULAR: Regular rate and rhythm noted there no murmurs rubs or gallops normal S1 normal S2. GASTROINTESTINAL: The abdomen is soft and nondistended. There is no specific guarding or rigidity. MUSCULOSKELETAL/EXTREMITIES: There is no evidence of gross deformity full range of motion is noted in the hips and shoulders. SKIN: There is no obvious evidence of any rash. There are no petechiae, pallor or cyanosis noted. NEUROLOGIC: Patient is awake alert and oriented x3 strength is symmetric patellar reflexes are 2+ bilaterally MEDICAL DECISION MAKING: The patient is a 20-year-old female who presented to the emergency department for an evaluation of sickle cell pain. The patient has a longstanding history of sickle cell disease. She had fever as well as body aches. I discussed patient's laboratory and radiographic studies with her. Her hemoglobin does compare favorably with previous but her reticulocyte count percentage was up and her Covid swab was positive. For this reason I discussed her case with the on- call [facility] hospitalist. They have agreed to evaluate the patient in the emergency department for further management and disposition. The patient was treated with IV fluids and IV pain medication. She was reevaluated and was feeling only minimally improved. Triage Nursing notes reviewed. Prior medical records reviewed Vital Signs: reviewed and remarkable for no significant abnormalities Differential diagnosis: Viral syndrome, otitis, pharyngitis, pneumonia, influenza, meningitis, urinary tract infection, sepsis, bacteremia, acute chest syndrome, sickle cell crisis spleen issues as well as other pathologies. ER treatment provided: See below Diagnostics interpreted by me: ECG: none Cardiac Monitoring: An order was placed for continuous cardiac monitoring. The monitor shows a rate of 80 bpm with sinus rhythm. Laboratory studies: As stated above and show below. Imaging studies: See below Consultation(s): I discussed this case with Dr. Bailey who is covering for the [facility] group. They will evaluate the patient in the emergency department. Past Med/Surg History Medical History Acute leg pain Borderline personality disorder Chest pain Chronic pain Depression Murmur, cardiac Nausea Overdose Person under investigation for COVID-19 Pneumonia Pseudoseizures Seizure-like activity Sickle cell anemia Sickle cell crisis Suicidal ideation Suicide gesture Surgical History No pertinent past surgical history Family History Mother Hypertension Father Ulcer Other Family history non-contributory Social History Smoking Status: Never smoker Tobacco Type: E-cigarettes / Vaping Second Hand Exposure: Yes; Hx Alcohol Use: Yes Alcohol type: other Hx Substance Use: No Preferred Language: Thai Communication Ability: Effective Director Public Required: No Beliefs That Will Affect Care: None marital status: Single Current Living Situation: Other Current Living Situation Comment: Pt states she lives with roommates 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 current occupation: [employer] major Feels Safe at Home: Yes Assistive Devices: None Allergies Allergies Allergy/AdvReac Type Severity Reaction Status Date / Time No Known Allergies Allergy Verified 01/16/21 13:55 Home Meds Home Medications Medication Instructions Recorded Confirmed naloxone 4 mg/actuation nasal 1 spray INTRANASAL .Q3 MINUTES PRN 09/04/20 01/16/21 spray (Narcan) tapentadol 50 mg tablet (Nucynta) 50 mg PO .TAPER DOSE 01/16/21 01/16/21 Results & Data (ED) Vital Signs Vital Signs - 24 hr 01/31/21 13:03 01/31/21 13:15 01/31/21 15:00 Temperature 36.9 C Temperature Source Temporal Artery Scan Pulse Rate 96 H Pulse Rate [Apical] 84 80 Pulse Rhythm Regular Pulse Strength Normal Respiratory Rate 18 18 13 Respiratory Effort / Characteristics Non-Labored Spontaneous Respiratory Depth Normal Normal Respiratory Pattern Regular Blood Pressure 110/81 Blood Pressure [Left Arm] 100/63 100/60 Blood Pressure Mean 90 Blood Pressure Mean [Left Arm] 75 73 Blood Pressure Position Sitting Pulse Oximetry 95 95 93 Oxygen Delivery Method Room Air Room Air Room Air Sepsis Recent Fever Within 48 Hours No Sepsis New/Unexplained Change in Mental Status N/A Sepsis Action Taken by Nursing No Action Required Home Medications Current Medication List: was personally reviewed by me Laboratory Data Attestation: I reviewed the patient's lab results. Result diagrams: 01/31/21 13:40 01/31/21 13:40 Lab Results 01/31/21 01/31/21 01/31/21 Range/Units 13:40 13:40 13:49 WBC 6.60 (4.8-10.8) K/uL RBC 2.56 L (4.2-5.4) M/uL Hgb 8.7 L (12.0-16.0) g/dL Hct 24.8 L (37-47) % MCV 96.9 (80-100) fL MCH 34.0 (25-34) pg MCHC 35.1 (32-36) g/dL RDW Std Deviation 71.3 H (36.4-46.3) fL RDW Coeff of Nando 20.6 H (11.5-14.5) % Plt Count 436 H (130-400) K/uL MPV 9.4 (7.4-10.4) fL Immature Gran % (Auto) 0.5 % Neut % (Auto) 66.4 % Lymph % (Auto) 21.4 % [place] % (Auto) 10.6 % Eos % (Auto) 0.5 % Baso % (Auto) 0.6 % Reticulocyte % (Auto) 16.1 H (0.5-2.0) % Neut # (Auto) 4.39 (1.4-6.5) K/uL Lymph # (Auto) 1.41 (1.2-3.4) K/uL [place] # (Auto) 0.70 H (0.11-0.59) K/uL Eos # (Auto) 0.03 (0-0.5) K/uL Baso # (Auto) 0.04 (0-0.2) K/uL Reticulocyte # 0.41 H (0.02-0.10) 10^6/uL Immature Gran # (Auto) 0.03 H (0.00-0.02) K/uL Absolute Nucleated RBC 0.12 H (0-0) K/uL Nucleated RBC % (auto) 1.9 % Platelet Estimate Normal (Normal) Polychromasia 1+ Basophilic Stippling 1+ Anisocytosis Present Sickle Cells 2+ Schistocytes 1+ ESR 11 (0-20) mm/hr PT (9.0-12.0) Seconds INR (0.9-1.1) APTT (21.0-31.0) Seconds PTT Ratio Sodium 138 (136-145) mmol/L Potassium 3.9 (3.5-5.1) mmol/L Chloride 107 (98-107) mmol/L Carbon Dioxide 25 (21-32) mmol/L Anion Gap 6.0 (3-11) BUN 4 L (7-18) mg/dl Creatinine 0.60 (0.6-1.2) mg/dl Est Cr Clr Drug Dosing 149.3 ml/min Est GFR ( Amer) 150.0 ml/min Est GFR (Non-Af Amer) 129.4 ml/min BUN/Creatinine Ratio 6.8 L (10-20) Glucose 88 (70-99) mg/dl Calcium 9.2 (8.5-10.1) mg/dl Total Bilirubin 2.7 H (0.2-1) mg/dl AST 26 (15-37) U/L ALT 22 (12-78) Alkaline Phosphatase 68 (45-117) U/L C-Reactive Protein 1.40 H (0-0.29) mg/dl Total Protein 8.3 H (6.4-8.2) gm/dl Albumin 3.9 (3.4-5.0) gm/dl Globulin 4.4 H (2.5-4.0) gm/dl Albumin/Globulin Ratio 0.9 (0.9-2) Procalcitonin (0-0.5) ng/ml HCG, Qual (Negative) SARS-CoV-2 (PCR) (Negative) Influenza Type A (PCR) (Neg) Influenza Type B (PCR) (Neg) RSV (RT-PCR) (Neg) 01/31/21 01/31/21 01/31/21 Range/Units 13:49 13:49 13:56 WBC (4.8-10.8) K/uL RBC (4.2-5.4) M/uL Hgb (12.0-16.0) g/dL Hct (37-47) % MCV (80-100) fL MCH (25-34) pg MCHC (32-36) g/dL RDW Std Deviation (36.4-46.3) fL RDW Coeff of Nando (11.5-14.5) % Plt Count (130-400) K/uL MPV (7.4-10.4) fL Immature Gran % (Auto) % Neut % (Auto) % Lymph % (Auto) % [place] % (Auto) % Eos % (Auto) % Baso % (Auto) % Reticulocyte % (Auto) (0.5-2.0) % Neut # (Auto) (1.4-6.5) K/uL Lymph # (Auto) (1.2-3.4) K/uL [place] # (Auto) (0.11-0.59) K/uL Eos # (Auto) (0-0.5) K/uL Baso # (Auto) (0-0.2) K/uL Reticulocyte # (0.02-0.10) 10^6/uL Immature Gran # (Auto) (0.00-0.02) K/uL Absolute Nucleated RBC (0-0) K/uL Nucleated RBC % (auto) % Platelet Estimate (Normal) Polychromasia Basophilic Stippling Anisocytosis Sickle Cells Schistocytes ESR (0-20) mm/hr PT 10.9 (9.0-12.0) Seconds INR 1.1 (0.9-1.1) APTT 24.6 (21.0-31.0) Seconds PTT Ratio 0.9 Sodium (136-145) mmol/L Potassium (3.5-5.1) mmol/L Chloride (98-107) mmol/L Carbon Dioxide (21-32) mmol/L Anion Gap (3-11) BUN (7-18) mg/dl Creatinine (0.6-1.2) mg/dl Est Cr Clr Drug Dosing ml/min Est GFR ( Amer) ml/min Est GFR (Non-Af Amer) ml/min BUN/Creatinine Ratio (10-20) Glucose (70-99) mg/dl Calcium (8.5-10.1) mg/dl Total Bilirubin (0.2-1) mg/dl AST (15-37) U/L ALT (12-78) Alkaline Phosphatase (45-117) U/L C-Reactive Protein (0-0.29) mg/dl Total Protein (6.4-8.2) gm/dl Albumin (3.4-5.0) gm/dl Globulin (2.5-4.0) gm/dl Albumin/Globulin Ratio (0.9-2) Procalcitonin 0.16 (0-0.5) ng/ml HCG, Qual Negative (Negative) SARS-CoV-2 (PCR) POSITIVE A* (Negative) Influenza Type A (PCR) Negative (Neg) Influenza Type B (PCR) Negative (Neg) RSV (RT-PCR) Negative (Neg) Administered Medications Hydromorphone HCl (Hydromorphone Inj 0.5 Mg/0.5 Ml Syr) 0.5 mg IV Q15M PRN PRN Reason: Pain Stop: 02/14/21 13:21 Last Admin: 01/31/21 14:56 Dose: 0.5 mg Documented by: [id number] Admin: 01/31/21 13:55 Dose: 0.5 mg Documented by: [id number] Discontinued Medications Sodium Chloride (Nss 1000ml) 1,000 mls @ 999 mls/hr IV .Q1H1M STA Stop: 01/31/21 14:22 Last Admin: 01/31/21 13:55 Dose: 999 mls/hr Documented by: [id number] Ondansetron HCl (Ondansetron Inj 2 Mg/Ml 2 Ml Vial) 4 mg IV NOW STA Stop: 01/31/21 13:23 Last Admin: 01/31/21 13:55 Dose: 4 mg Documented by: [id number] Imaging Data Radiologist's Impression: Chest X-Ray 01/31/21 13:22 XR chest 1V portable CLINICAL HISTORY: Fever TECHNIQUE: Single frontal radiograph of the chest was obtained. Comparison: Comparison is made to chest one view 01/03/2021 FINDINGS: No lines and tubes are seen. Cardiomegaly is noted. The lungs are clear. No evidence of pleural effusion or pneumothorax. IMPRESSION: No acute chest disease. ACT 112: Negative or not required by law. Electronically signed by: Kenn Jeffrey M.D. 01/31/2021 1:31 PM Discharge Plan Visit Data Chief Complaint: Illness Stated Complaint: ANEMIA ED Provider: Mello Hyatt Discharge Problem: Sickle cell anemia, COVID-19 Patient Disposition: Being Evaluated by Hospitalist Forms Stand Alone Forms: My [facility] Prescriptions Prescriptions: No Action Narcan 4 mg/actuation spray,non-aerosol 1 spray intranasal .Q3 MINUTES PRN (Reason: OVERSEDATION) RF: 0 Nucynta 50 mg tablet 50 mg PO .TAPER DOSE RF: 0 Referrals Referrals: Zamzam Bailey MD [Primary Care Provider] -
--- NOTE | 2021-01-31 13:33 | XRay Report ---
XR chest 1V portable CLINICAL HISTORY: Fever TECHNIQUE: Single frontal radiograph of the chest was obtained. Comparison: Comparison is made to chest one view 01/03/2021 FINDINGS: No lines and tubes are seen. Cardiomegaly is noted. The lungs are clear. No evidence of pleural effus ion or pneumothorax. IMPRESSION: No acute chest disease. ACT 112: Negative or not required by law. Electronically signed by: Kenn Jeffrey M.D. 01/31/2021 1:31 PM
[2021-01-31] MEDS: HYDROmorphone INJ 0.5 MG/0.5 ML SYR IV PRN ×3 (13:55→17:14)
[2021-01-31 14:06] LABS: Reticulocyte % 16.1 % (0.5-2.0); Reticulocytes # 0.41 10^6/uL (0.02-0.10)
[2021-01-31 14:25] LABS: Albumin Level 3.9 gm/dl (3.4-5.0); BUN Creatinine Ratio 6.8 (10-20); C Reactive Protein 1.4 mg/dl (0-0.29); Calcium 9.2 mg/dl (8.5-10.1); Creatinine Clr Calc Pharmacy 149.3 ml/min; Est GFR (Non-African American) 129.4 ml/min; Potassium 3.9 mmol/L (3.5-5.1)
[2021-01-31 14:27] LABS: Albumin Globulin Ratio 0.9 (0.9-2); Bilirubin,Total 2.7 mg/dl (0.2-1); Globulin 4.4 gm/dl (2.5-4.0); Total Protein 8.3 gm/dl (6.4-8.2)
[2021-01-31 14:29] LABS: INR 1.1 (0.9-1.1); Partial Thromboplastin Ratio 0.9; Partial Thromboplastin Time 24.6 Seconds (21.0-31.0); Prothrombin Time 10.9 Seconds (9.0-12.0)
[2021-01-31 14:30] LABS: Pregnancy Test, Serum Negative (Negative)
[2021-01-31 14:47] LABS: Procalcitonin 0.16 ng/ml (0-0.5)
[2021-01-31 14:50] LABS: Hematocrit (blood only) 24.8 % (37-47); Hemoglobin 8.7 g/dL (12.0-16.0); Mean Corpuscular Hgb Conc 35.1 g/dL (32-36); Mean Corpuscular Volume 96.9 fL (80-100); Mean Platelet Volume 9.4 fL (7.4-10.4); Nucleated RBC # (auto) 0.12 K/uL (0-0); Nucleated RBC % (auto) 1.9 %; Platelet Count 436 K/uL (130-400); RDW Coefficient of Variation 20.6 % (11.5-14.5); RDW Standard Deviation 71.3 fL (36.4-46.3); Red Blood Count 2.56 M/uL (4.2-5.4)
[2021-01-31 14:52] LABS: Anisocytosis Present; Basophilic Stippling 1+; Basophils # (auto) 0.04 K/uL (0-0.2); Basophils % (auto) 0.6 %; Eosinophils # (auto) 0.03 K/uL (0-0.5); Eosinophils % (auto) 0.5 %; Immature Granulocytes # (auto) 0.03 K/uL (0.00-0.02); Immature Granulocytes % (auto) 0.5 %; Lymphocytes # (auto) 1.41 K/uL (1.2-3.4); Lymphocytes % (auto) 21.4 %; Monocytes % (auto) 10.6 %; Neutrophils # (auto) 4.39 K/uL (1.4-6.5); Neutrophils % (auto) 66.4 %; Platelet Estimate Normal (Normal); Polychromasia 1+; Schistocytes 1+; Sickle Cells 2+
[2021-01-31 15:01] LABS: Influenza A virus by PCR Negative (Neg); Influenza B virus by PCR Negative (Neg); RSV by PCR Negative (Neg)
[2021-01-31 15:04] LABS: SARS CoV2 RNA(COVID-19) InHosp POSITIVE (Negative)
[2021-01-31] MEDS ORDERED: SODIUM CHLORIDE 0.9% 250 ML IV PRN (17:41)
--- NOTE | 2021-01-31 17:41 | History & Physical Report ---
Date of Service January 31, 2021 Assessment & Plan (1) COVID-19: Plan: 20-year-old female with past medical history of borderline personality disorder, suicidal ideation, opioid-induced hyperalgesia, sickle cell disease, osteonecrosis of the hip admitted to the hospital for acute sickle cell crisis and COVID-19 infection. COVID-19 - Not hypoxic Will monitor for hypoxia Vaccinated, hopefully will be less severe disease due to vaccination DVT prophylaxis with 40 mg of Lovenox daily given higher risk of clotting with both Covid and sickle cell disease Does not currently meet any indications for remdesivir, dexamethasone CRP elevated to 1.4, pro-Brian 0.16 Sickle cell crisis complicated by opioid-induced hyperalgesia Continuing Nucynta 50 mg p.o. twice daily per home taper 1 mg IV Dilaudid every 3 hours as needed for severe pain control. Can step back and space out dosing as pain improves. Hold for sedation Narcan if needed Toradol 15 mg every 6 IV for moderate pain Chest x-ray negative for acute chest or severe Covid pneumonia Abdominal pain Continue daily pantoprazole p.o. Right upper quadrant ultrasound ordered Total bilirubin 2.7 Zofran as needed IV Sickle cell disease Continue hydroxyurea 1 g p.o. twice daily Continue 1 g folate daily Half-normal saline at 125 mL an hour for maintenance fluid oxygenation to help decrease vasoconstriction even if not hypoxic her O2 sat Goal hematocrit greater than 25. Will transfuse 1 unit packed red blood cells at this time Reticulocyte count increased to 16, higher than usual DVT ppx: lovenox 40 sq FEN/GI: regular diet, 1/2 NS @ 125cc/hr Bowel regimen: daily miralax Code Status: Full Code Dispo: Med/Tele, isolation room (2) Avascular necrosis of bone of hip: (3) Nausea: (4) Hyperbilirubinemia: (5) Psychogenic nonepileptic seizure: (6) Borderline personality disorder: (7) Vaso-occlusive sickle cell crisis: (8) Opioid-induced hyperalgesia: History of Present Illness Chief Complaint: sickle cell pain Primary Care Provider: Zamzam Bailey MD 20-year-old female with a past medical history of suicidal ideation, severe sickle cell disease, depression, psychogenic nonepileptic seizures who presents to the emergency department for multiple days of shortness of breath and fever. She called her PCPs office earlier today describing her symptoms and was advised to go to the emergency department. She states that she has had a mild cough, fevers, chills since Sunday 01/28. She denies any production with the cough. She did not take anything to treat the fever. She states her highest fever was 38.5 Celsius. She does have some pain with coughing and taking a deep breath. She says that this feels sharper than her normal sickle cell associated chest pain. She attest to having worsening generalized body pain that often happens with her sickle cell crises. She has gotten both of her Covid vaccination in May 2020. Allergies Allergy/AdvReac Type Severity Reaction Status Date / Time No Known Allergies Allergy Verified 01/31/21 17:33 Home Medications Medication Instructions Recorded Confirmed Type naloxone 4 mg/actuation nasal 1 spray INTRANASAL .Q3 MINUTES PRN 09/04/20 01/31/21 History spray (Narcan) tapentadol 50 mg tablet (Nucynta) 50 mg PO BID 01/16/21 01/31/21 History duloxetine 20 mg capsule,delayed 20 mg PO DAILY 01/31/21 01/31/21 History release folic acid 1 mg tablet 2 mg PO DAILY 01/31/21 01/31/21 History hydroxyurea 500 mg capsule 1,000 mg PO BID 01/31/21 01/31/21 History pantoprazole 40 mg tablet,delayed 40 mg PO DAILY 01/31/21 01/31/21 History release Past Med/Surg History Medical History Acute leg pain Borderline personality disorder Chest pain Chronic pain Depression Murmur, cardiac Nausea Overdose Person under investigation for COVID-19 Pneumonia Pseudoseizures Seizure-like activity Sickle cell anemia Sickle cell crisis Suicidal ideation Suicide gesture Surgical History No pertinent past surgical history Family History Mother Hypertension Father Ulcer Other Family history non-contributory Social History Smoking Status: Never smoker Tobacco Type: E-cigarettes / Vaping Second Hand Exposure: Yes; Hx Alcohol Use: Yes Alcohol type: other Hx Substance Use: No Preferred Language: Kyrgyz Communication Ability: Effective Bull Fiddle Player Required: No Beliefs That Will Affect Care: None marital status: Single Current Living Situation: Alone Current Living Situation Comment: Pt states she lives with roommates 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 current occupation: [employer] major Other Information That Helps Us Care for You: No Feels Safe at Home: Yes Safety Concerns: Feels Safe At This Time Assistive Devices: None Review of Systems Review of Systems: All systems reviewed & are unremarkable except as noted in Subjective Physical Exam Physical Exam: Constitutional: ill, uncomfortable appearing Eyes: EOMI, pupils equal and reactive bilaterally, no scleral icterus Cardiac: RRR, no murmurs, gallops or rubs. Normal S1, S2 Pulm: CTA BL, no wheezes, rhonchi, crackles or rubs, moving air well throughout both lungs, Abd: soft, tender to palpation throughout abdomen but focused in RUQ and epigastric Extremities: 2+ peripheral pulses, no edema Neuro: no focal deficits, moving all 4 limbs, A&Ox3 Results & Data Results & Data ([facility]) Vital Signs (Past 12 Hours) Vital Signs Temp Pulse Pulse Resp BP BP Pulse Ox 01/31/21 15:00 80 13 100/60 93 01/31/21 13:15 84 18 100/63 95 01/31/21 13:03 36.9 C 96 H 18 110/81 95 Laboratory Results Laboratory Results WBC 6.60 K/uL (4.8-10.8) 01/31/21 13:40 RBC 2.56 M/uL (4.2-5.4) L 01/31/21 13:40 Hgb 8.7 g/dL (12.0-16.0) L 01/31/21 13:40 Hct 24.8 % (37-47) L 01/31/21 13:40 MCV 96.9 fL (80-100) 01/31/21 13:40 MCH 34.0 pg (25-34) 01/31/21 13:40 MCHC 35.1 g/dL (32-36) 01/31/21 13:40 RDW Std Deviation 71.3 fL (36.4-46.3) H 01/31/21 13:40 RDW Coeff of Nando 20.6 % (11.5-14.5) H 01/31/21 13:40 Plt Count 436 K/uL (130-400) H 01/31/21 13:40 MPV 9.4 fL (7.4-10.4) 01/31/21 13:40 Immature Gran % (Auto) 0.5 % 01/31/21 13:40 Neut % (Auto) 66.4 % 01/31/21 13:40 Lymph % (Auto) 21.4 % 01/31/21 13:40 [place] % (Auto) 10.6 % 01/31/21 13:40 Eos % (Auto) 0.5 % 01/31/21 13:40 Baso % (Auto) 0.6 % 01/31/21 13:40 Reticulocyte % (Auto) 16.1 % (0.5-2.0) H 01/31/21 13:40 Neut # (Auto) 4.39 K/uL (1.4-6.5) 01/31/21 13:40 Lymph # (Auto) 1.41 K/uL (1.2-3.4) 01/31/21 13:40 [place] # (Auto) 0.70 K/uL (0.11-0.59) H 01/31/21 13:40 Eos # (Auto) 0.03 K/uL (0-0.5) 01/31/21 13:40 Baso # (Auto) 0.04 K/uL (0-0.2) 01/31/21 13:40 Reticulocyte # 0.41 10^6/uL (0.02-0.10) H 01/31/21 13:40 Immature Gran # (Auto) 0.03 K/uL (0.00-0.02) H 01/31/21 13:40 Absolute Nucleated RBC 0.12 K/uL (0-0) H 01/31/21 13:40 Nucleated RBC % (auto) 1.9 % 01/31/21 13:40 Platelet Estimate Normal (Normal) 01/31/21 13:40 Polychromasia 1+ 01/31/21 13:40 Basophilic Stippling 1+ 01/31/21 13:40 Anisocytosis Present 01/31/21 13:40 Sickle Cells 2+ 01/31/21 13:40 Schistocytes 1+ 01/31/21 13:40 ESR 11 mm/hr (0-20) 01/31/21 13:49 PT 10.9 Seconds (9.0-12.0) 01/31/21 13:49 INR 1.1 (0.9-1.1) 01/31/21 13:49 APTT 24.6 Seconds (21.0-31.0) 01/31/21 13:49 PTT Ratio 0.9 01/31/21 13:49 Sodium 138 mmol/L (136-145) 01/31/21 13:40 Potassium 3.9 mmol/L (3.5-5.1) 01/31/21 13:40 Chloride 107 mmol/L (98-107) 01/31/21 13:40 Carbon Dioxide 25 mmol/L (21-32) 01/31/21 13:40 Anion Gap 6.0 (3-11) 01/31/21 13:40 BUN 4 mg/dl (7-18) L 01/31/21 13:40 Creatinine 0.60 mg/dl (0.6-1.2) 01/31/21 13:40 Est Cr Clr Drug Dosing 149.3 ml/min 01/31/21 13:40 Est GFR ( Amer) 150.0 ml/min 01/31/21 13:40 Est GFR (Non-Af Amer) 129.4 ml/min 01/31/21 13:40 BUN/Creatinine Ratio 6.8 (10-20) L 01/31/21 13:40 Glucose 88 mg/dl (70-99) 01/31/21 13:40 Calcium 9.2 mg/dl (8.5-10.1) 01/31/21 13:40 Total Bilirubin 2.7 mg/dl (0.2-1) H 01/31/21 13:40 AST 26 U/L (15-37) 01/31/21 13:40 ALT 22 (12-78) 01/31/21 13:40 Alkaline Phosphatase 68 U/L (45-117) 01/31/21 13:40 C-Reactive Protein 1.40 mg/dl (0-0.29) H 01/31/21 13:40 Total Protein 8.3 gm/dl (6.4-8.2) H 01/31/21 13:40 Albumin 3.9 gm/dl (3.4-5.0) 01/31/21 13:40 Globulin 4.4 gm/dl (2.5-4.0) H 01/31/21 13:40 Albumin/Globulin Ratio 0.9 (0.9-2) 01/31/21 13:40 Procalcitonin 0.16 ng/ml (0-0.5) 01/31/21 13:49 HCG, Qual Negative (Negative) 01/31/21 13:49 SARS-CoV-2 (PCR) POSITIVE (Negative) A* 01/31/21 13:56 Influenza Type A (PCR) Negative (Neg) 01/31/21 13:56 Influenza Type B (PCR) Negative (Neg) 01/31/21 13:56 RSV (RT-PCR) Negative (Neg) 01/31/21 13:56 Crossmatch See Detail 01/31/21 18:01 Impressions Chest X-Ray 01/31/21 13:22 XR chest 1V portable CLINICAL HISTORY: Fever TECHNIQUE: Single frontal radiograph of the chest was obtained. Comparison: Comparison is made to chest one view 01/03/2021 FINDINGS: No lines and tubes are seen. Cardiomegaly is noted. The lungs are clear. No evidence of pleural effusion or pneumothorax. IMPRESSION: No acute chest disease. ACT 112: Negative or not required by law. Electronically signed by: Kenn Jeffrey M.D. 01/31/2021 1:31 PM Supervising Physician Co-Signing Physician Notes Patient seen and examined at bedside. Obtained a history and a physical exam during face to face encounter. Discussed plan of care with patient and Dr. Christine Bailey. Answered all of patient's questions. Reviewed above note and agree with it. Patient will be admitted with covid and sickle cell crisis Will be on pain management as stated above. Resident Activity Tracking Resident Involvement: Resident Care Provided Care Provided: Adult Hospital Medicine
--- NOTE | 2021-01-31 20:14 | Ultrasound Report ---
US liver CLINICAL HISTORY: RUQ pain TECHNIQUE: Multiple real-time sonographic images of the right upper quadrant were obtained. Comparison: None available at the time of this dictation. FINDINGS: The liver is diffusely homogenous with normal contour and echogenicity. No focal mass lesions are se en. No intrahepatic ductal dilatation is seen. No gallstones or sludge are identified within the gallbladder. The gallbladder wall is not thickened. There is no pericholecystic fluid present. There is a probable polyp measuring 0.3 cm. The common duct measures 0.4 cm in diameter at the level of th e hepatic artery. The visualized portions of the pancreas appear normal. The right kidney shows normal echogenicity, cortical thickness and renal contour. The right kidney sh ows no evidence of hydronephrosis or mass. No ascites or free fluid is seen in Cueto's pouch. IMPRESSION: No acute abnormality and in particular no evidence of acute cholecystitis. Gallbladder polyps are see n. By ACR criteria, no further evaluation or follow-up is necessary. ACT 112: Negative or not required by law. Electronically signed by: Kenn Jeffrey M.D. 01/31/2021 8:13 PM
[2021-01-31] MEDS ORDERED: POLYETHYLENE (MIRALAX) 17 GM PACK PO PRN (20:30)
[2021-01-31] MEDS ORDERED: NALOXONE HCL 0.4 MG/1 ML VIAL/CARP IV PRN (20:30)
[2021-01-31] MEDS ORDERED: HYDROmorphone INJ 1 MG/ML SYRINGE IV PRN (20:37)
[2021-01-31] MEDS: MoRPHine SULFATE 2 MG/ML CARP IV PRN (21:16)
[2021-01-31] MEDS: KETOROLAC TROMETHAMINE 15 MG/ML VIAL IV PRN (21:16)
[2021-01-31] MEDS: SODIUM CHLORIDE 0.45 % 1,000 ML IV SCH (21:17)
[2021-01-31] MEDS: ONDANSETRON INJ 2 MG/ML 2 ML VIAL IV PRN (21:17)
[2021-01-31] MEDS: ACETAMINOPHEN 325 MG TAB PO SCH (21:17)
[2021-01-31] MEDS: TAPENTADOL HCL 50 MG TAB PO SCH (22:08)
[2021-01-31] MEDS: HYDROXYUREA 500 MG CAP PO SCH (22:08)
[2021-01-31] MEDS: ENOXAPARIN INJ 40 MG/0.4 ML SYR SQ SCH (22:09)
[2021-02-01] MEDS: ACETAMINOPHEN 325 MG TAB PO SCH ×7 (00:21→23:47)
[2021-02-01] MEDS: MoRPHine SULFATE 2 MG/ML CARP IV PRN ×4 (02:18→19:21)
[2021-02-01 05:00] LABS: Alanine Aminotransferase 20 (12-78); Albumin Level 3.3 gm/dl (3.4-5.0); Aspartate Aminotransferase 29 U/L (15-37); BUN Creatinine Ratio 10.9 (10-20); Blood Urea Nitrogen 6 mg/dl (7-18); Calcium 8.7 mg/dl (8.5-10.1); Carbon Dioxide 27 mmol/L (21-32); Chloride 108 mmol/L (98-107); Creatinine Clr Calc Pharmacy 162.9 ml/min; Est GFR (African American) > 150.0 ml/min; Est GFR (Non-African American) 133.1 ml/min; Glucose 87 mg/dl (70-99); Potassium 3.6 mmol/L (3.5-5.1); Sodium 138 mmol/L (136-145)
[2021-02-01 05:05] LABS: Albumin Globulin Ratio 0.9 (0.9-2); Alkaline Phosphatase 57 U/L (45-117); Bilirubin,Total 2.1 mg/dl (0.2-1); Globulin 3.7 gm/dl (2.5-4.0)
[2021-02-01 06:28] LABS: Hematocrit (blood only) 20.6 % (37-47); Hemoglobin 7.1 g/dL (12.0-16.0); Mean Corpuscular Hemoglobin 33.6 pg (25-34); Mean Corpuscular Hgb Conc 34.5 g/dL (32-36); Mean Corpuscular Volume 97.6 fL (80-100); Nucleated RBC # (auto) 0.11 K/uL (0-0); Nucleated RBC % (auto) 1.4 %; Platelet Count 336 K/uL (130-400); RDW Coefficient of Variation 20.3 % (11.5-14.5); RDW Standard Deviation 71.8 fL (36.4-46.3); Red Blood Count 2.11 M/uL (4.2-5.4); White Blood Count 7.61 K/uL (4.8-10.8)
[2021-02-01 07:15] LABS: Anisocytosis Present; Basophils # (auto) 0.04 K/uL (0-0.2); Basophils % (auto) 0.5 %; Eosinophils # (auto) 0.07 K/uL (0-0.5); Eosinophils % (auto) 0.9 %; Immature Granulocytes # (auto) 0.03 K/uL (0.00-0.02); Immature Granulocytes % (auto) 0.4 %; Lymphocytes # (auto) 3.04 K/uL (1.2-3.4); Lymphocytes % (auto) 39.9 %; Monocytes # (auto) 0.58 K/uL (0.11-0.59); Monocytes % (auto) 7.6 %; Neutrophils # (auto) 3.85 K/uL (1.4-6.5); Neutrophils % (auto) 50.7 %; Poikilocytosis Present; Polychromasia 1+; Sickle Cells 2+; Target Cells 1+
[2021-02-01] MEDS ORDERED: SODIUM CHLORIDE 0.9% 250 ML IV PRN (07:31)
[2021-02-01] MEDS: SODIUM CHLORIDE 0.45 % 1,000 ML IV SCH ×3 (10:09→20:27)
[2021-02-01] MEDS: ENOXAPARIN INJ 40 MG/0.4 ML SYR SQ SCH ×2 (10:47→20:25)
[2021-02-01] MEDS: HYDROXYUREA 500 MG CAP PO SCH ×2 (10:48→20:26)
[2021-02-01] MEDS: TAPENTADOL HCL 50 MG TAB PO SCH ×2 (10:48→20:25)
[2021-02-01] MEDS: FOLIC ACID 1 MG TAB PO SCH (10:48)
[2021-02-01] MEDS: PANTOprazole 40 MG TAB PO SCH (10:48)
[2021-02-01] MEDS: DULoxetine HCL 20 MG CAP PO SCH (11:30)
[2021-02-01] MEDS: HYDROmorphone INJ 1 MG/ML SYRINGE IV PRN ×2 (17:38→23:43)
--- NOTE | 2021-02-01 17:42 | Hospitalist Progress Note ---
Date of Service February 01, 2021 Assessment & Plan (1) COVID-19: Plan: 20-year-old female with past medical history of borderline personality disorder, suicidal ideation, opioid-induced hyperalgesia, sickle cell disease, osteonecrosis of the hip admitted to the hospital for acute sickle cell crisis and COVID-19 infection. COVID-19 - Not hypoxic Will monitor for hypoxia Vaccinated, hopefully will be less severe disease due to vaccination DVT prophylaxis with 40 mg of Lovenox daily given higher risk of clotting with both Covid and sickle cell disease Does not currently meet any indications for remdesivir, dexamethasone CRP elevated to 1.4, pro-Brian 0.16 on admission. Chest x-ray negative for acute chest or severe Covid pneumonia -Continuing to oxygenate well on RA -decongestant for sinus headache. Sickle cell crisis complicated by opioid-induced hyperalgesia -Sec to acute illness- COVID infection. Continuing Nucynta 50 mg p.o. twice daily per home taper 1 mg IV Dilaudid every 3 hours as needed for severe pain control. Can step back and space out dosing as pain improves. Hold for sedation Narcan if needed Toradol 15 mg every 6 IV for moderate pain -Transfuse 2 units RBC since hb 7.1 Abdominal pain Continue daily pantoprazole p.o. RUQ US normal Total bilirubin 2.7 Zofran as needed IV Sickle cell disease Continue hydroxyurea 1 g p.o. twice daily Continue 1 g folate daily Half-normal saline at 125 mL an hour for maintenance fluid oxygenation to help decrease vasoconstriction even if not hypoxic her O2 sat Goal hematocrit greater than 25. Transfuse as above. Reticulocyte count increased to 16, higher than usual DVT ppx: lovenox 40 sq FEN/GI: regular diet, 1/2 NS @ 125cc/hr Bowel regimen: daily miralax Code Status: Full Code Dispo: Med/Tele, isolation room (2) Avascular necrosis of bone of hip: (3) Nausea: (4) Hyperbilirubinemia: (5) Psychogenic nonepileptic seizure: (6) Borderline personality disorder: (7) Vaso-occlusive sickle cell crisis: (8) Opioid-induced hyperalgesia: Admission and Anticipated Discharge Date Admission Date: January 31, 2021 Subjective Still in lot of pain in her back. also having headache and dizziness from sinus congestion no fever appetite ok Physical Exam Constitutional: In some distress from pain Respiratory: normal respiratory effort, lungs clear to auscultation Cardiovascular: RRR, no murmur, no edema Gastrointestinal (Abdomen): normal bowel sounds, soft, nontender, no hepatosplenomegaly Psychiatric: no perri spinous tenderness Results & Data Results & Data ([facility]) Vital Signs (Past 12 Hours) Vital Signs Temp Pulse Pulse Pulse Resp BP BP 02/01/21 14:35 36.7 C 78 18 02/01/21 12:35 36.9 C 73 18 107/55 L 02/01/21 11:20 77 02/01/21 11:03 36.9 C 67 18 114/79 02/01/21 10:53 36.9 C 67 20 100/64 02/01/21 10:33 36.8 C 69 20 108/73 02/01/21 10:20 36.8 C 69 20 108/73 02/01/21 10:01 37 C 72 20 112/74 02/01/21 09:31 36.9 C 73 16 131/79 02/01/21 08:21 88 20 116/67 02/01/21 06:00 70 18 98/62 L BP Pulse Ox 02/01/21 14:35 126/79 93 02/01/21 12:35 97 02/01/21 11:20 02/01/21 11:03 94 02/01/21 10:53 94 02/01/21 10:33 94 02/01/21 10:20 94 02/01/21 10:01 98 02/01/21 09:31 92 02/01/21 08:21 92 02/01/21 06:00 98
[2021-02-01] MEDS: FLUTICASONE PROPIONATE NA SPR 16 GM BTL SCH (20:29)
[2021-02-01] MEDS: KETOROLAC TROMETHAMINE 15 MG/ML VIAL IV PRN (22:06)
[2021-02-02] MEDS: ONDANSETRON INJ 2 MG/ML 2 ML VIAL IV PRN ×2 (03:54→22:28)
[2021-02-02] MEDS: ACETAMINOPHEN 325 MG TAB PO SCH ×5 (03:54→20:38)
[2021-02-02] MEDS: MoRPHine SULFATE 2 MG/ML CARP IV PRN (03:55)
--- NOTE | 2021-02-02 06:55 | Hospitalist Progress Note ---
Date of Service February 02, 2021 Assessment & Plan (1) COVID-19: Plan: 20-year-old female with past medical history of borderline personality disorder, suicidal ideation, opioid-induced hyperalgesia, sickle cell disease, osteonecrosis of the hip admitted to the hospital for acute sickle cell crisis and COVID-19 infection. COVID-19 - Not hypoxic Will monitor for hypoxia Vaccinated, hopefully will be less severe disease due to vaccination DVT prophylaxis with 40 mg of Lovenox daily given higher risk of clotting with both Covid and sickle cell disease Does not currently meet any indications for remdesivir, dexamethasone CRP elevated to 1.4, pro-Brian 0.16 Sickle cell crisis complicated by opioid-induced hyperalgesia Continuing Nucynta 50 mg p.o. twice daily per home taper 1 mg IV Dilaudid every 3 hours as needed for severe pain control. Can step back and space out dosing as pain improves. Hold for sedation Narcan if needed Toradol 15 mg every 6 IV for moderate pain Chest x-ray negative for acute chest or severe Covid pneumonia Abdominal pain Continue daily pantoprazole p.o. Right upper quadrant ultrasound ordered Total bilirubin 2.7 Zofran as needed IV Sickle cell disease Continue hydroxyurea 1 g p.o. twice daily Continue 1 g folate daily Half-normal saline at 125 mL an hour for maintenance fluid oxygenation to help decrease vasoconstriction even if not hypoxic her O2 sat Goal hematocrit greater than 25. Will transfuse 1 unit packed red blood cells at this time Reticulocyte count increased to 16, higher than usual DVT ppx: lovenox 40 sq FEN/GI: regular diet, 1/2 NS @ 125cc/hr Bowel regimen: daily miralax Code Status: Full Code Dispo: Med/Tele, isolation room (2) Avascular necrosis of bone of hip: (3) Nausea: (4) Hyperbilirubinemia: (5) Psychogenic nonepileptic seizure: (6) Borderline personality disorder: (7) Vaso-occlusive sickle cell crisis: (8) Opioid-induced hyperalgesia: Admission and Anticipated Discharge Date Admission Date: January 31, 2021 Results & Data Results & Data ([facility]) Vital Signs (Past 12 Hours) Vital Signs Temp Pulse Pulse Resp BP BP Pulse Ox 02/02/21 04:12 36.7 C 72 18 128/88 95 02/02/21 00:20 36.6 C 61 20 102/65 92 02/01/21 23:16 36.6 C 57 L 18 106/70 93 02/01/21 22:39 36.6 C 64 18 108/69 92 02/01/21 22:19 59 L 02/01/21 22:09 36.5 C 68 18 103/64 92 02/01/21 21:54 36.6 C 66 18 106/63 92 02/01/21 21:35 36.6 C 61 16 104/65 94 02/01/21 20:30 02/01/21 19:58 36.7 C 60 20 113/75 94 Pulse Ox 02/02/21 04:12 02/02/21 00:20 02/01/21 23:16 02/01/21 22:39 02/01/21 22:19 02/01/21 22:09 02/01/21 21:54 02/01/21 21:35 02/01/21 20:30 93 02/01/21 19:58
[2021-02-02 07:43] LABS: Alanine Aminotransferase 31 (12-78); Albumin Level 3.5 gm/dl (3.4-5.0); Aspartate Aminotransferase 43 U/L (15-37); BUN Creatinine Ratio 9.1 (10-20); Blood Urea Nitrogen 5 mg/dl (7-18); Calcium 8.5 mg/dl (8.5-10.1); Carbon Dioxide 27 mmol/L (21-32); Chloride 107 mmol/L (98-107); Creatinine Clr Calc Pharmacy 175.7 ml/min; Est GFR (African American) > 150.0 ml/min; Est GFR (Non-African American) 135.6 ml/min; Glucose 85 mg/dl (70-99); Potassium 3.5 mmol/L (3.5-5.1); Sodium 139 mmol/L (136-145)
[2021-02-02 07:46] LABS: Albumin Globulin Ratio 0.9 (0.9-2); Alkaline Phosphatase 56 U/L (45-117); Globulin 3.9 gm/dl (2.5-4.0); Total Protein 7.4 gm/dl (6.4-8.2)
[2021-02-02 08:12] LABS: ALC (manual) 2.12 K/uL (1.2-3.4); ANC (manual) 1.38 K/uL (1.4-6.5); Anisocytosis Present; Basophils # (manual) 0.15 K/uL (0-0.2); Basophils % (manual) 3.7 %; Eosinophils # (manual) 0.04 K/uL (0-0.5); Eosinophils % (manual) 0.9 %; Hematocrit (blood only) 27.3 % (37-47); Hemoglobin 9.7 g/dL (12.0-16.0); Lymphocytes # (manual) 2.12 K/uL (1.2-3.4); Lymphocytes % (manual) 52.8 %; Mean Corpuscular Hemoglobin 33.2 pg (25-34); Mean Corpuscular Hgb Conc 35.5 g/dL (32-36); Mean Corpuscular Volume 93.5 fL (80-100); Mean Platelet Volume 9.8 fL (7.4-10.4); Monocytes # (manual) 0.33 K/uL (0.11-0.59); Monocytes % (manual) 8.3 %; Neutrophils # (manual) 1.38 K/uL (1.4-6.5); Neutrophils % (manual) 34.3 %; Nucleated RBC # (auto) 0.08 K/uL (0-0); Nucleated RBC % (auto) 2.1 %; Platelet Count 369 K/uL (130-400); Polychromasia 1+; RDW Coefficient of Variation 19.3 % (11.5-14.5); RDW Standard Deviation 65.9 fL (36.4-46.3); Red Blood Count 2.92 M/uL (4.2-5.4); Sickle Cells 1+; Target Cells 1+; White Blood Count 4.01 K/uL (4.8-10.8)
[2021-02-02] MEDS: HYDROmorphone INJ 1 MG/ML SYRINGE IV PRN ×5 (08:32→22:28)
[2021-02-02] MEDS: SODIUM CHLORIDE 0.45 % 1,000 ML IV SCH ×2 (08:32→17:34)
[2021-02-02] MEDS: FOLIC ACID 1 MG TAB PO SCH (08:35)
[2021-02-02] MEDS: DULoxetine HCL 20 MG CAP PO SCH (08:35)
[2021-02-02] MEDS: FLUTICASONE PROPIONATE NA SPR 16 GM BTL SCH ×2 (08:35→20:39)
[2021-02-02] MEDS: HYDROXYUREA 500 MG CAP PO SCH ×2 (08:36→20:40)
[2021-02-02] MEDS: PANTOprazole 40 MG TAB PO SCH (08:36)
[2021-02-02] MEDS: ENOXAPARIN INJ 40 MG/0.4 ML SYR SQ SCH ×2 (08:36→20:38)
[2021-02-02] MEDS: TAPENTADOL HCL 50 MG TAB PO SCH ×2 (08:41→20:43)
[2021-02-02] MEDS: KETOROLAC TROMETHAMINE 15 MG/ML VIAL IV PRN (11:12)
--- NOTE | 2021-02-02 11:59 | Hospitalist Progress Note ---
Date of Service February 02, 2021 Assessment & Plan (1) COVID-19: Plan: 20-year-old female with past medical history of borderline personality disorder, suicidal ideation, opioid-induced hyperalgesia, sickle cell disease, osteonecrosis of the hip admitted to the hospital for acute sickle cell crisis and COVID-19 infection. COVID-19 - Not hypoxic. 95% on RA Vaccinated, hopefully will be less severe disease due to vaccination DVT prophylaxis with 40 mg of Lovenox daily given higher risk of clotting with both Covid and sickle cell disease Does not currently meet any indications for remdesivir, dexamethasone CRP elevated to 1.4, pro-Brian 0.16 on admission. Chest x-ray negative for acute chest or severe Covid pneumonia -decongestant for sinus headache. Sickle cell crisis complicated by opioid-induced hyperalgesia -Sec to acute illness- COVID infection. Continuing Nucynta 50 mg p.o. twice daily per home taper 1 mg IV Dilaudid every 3 hours as needed for severe pain control. Can step back and space out dosing as pain improves. Hold for sedation Narcan if needed Toradol 15 mg every 6 IV for moderate pain -s/p 2 units PRBC on 02/01 with appropriate rise in hb. follow h/h Half-normal saline at 125 mL an hour for maintenance fluid oxygenation to help decrease vasoconstriction even if not hypoxic her O2 sat Abdominal pain -resolved Continue daily pantoprazole p.o. RUQ US normal Total bilirubin 2.7 Sickle cell disease Continue hydroxyurea 1 g p.o. twice daily Continue 1 g folate daily Goal hematocrit greater than 25. Transfuse as above. Reticulocyte count increased to 16, higher than usual DVT ppx: lovenox 40 sq FEN/GI: regular diet, 1/2 NS @ 125cc/hr Bowel regimen: daily miralax Code Status: Full Code Dispo: Med/Tele, isolation room (2) Avascular necrosis of bone of hip: (3) Nausea: (4) Hyperbilirubinemia: (5) Psychogenic nonepileptic seizure: (6) Borderline personality disorder: (7) Vaso-occlusive sickle cell crisis: (8) Opioid-induced hyperalgesia: Admission and Anticipated Discharge Date Admission Date: January 31, 2021 Subjective Feeling better compared to yesterday. pain persists - dilaudid q6hrs is not holding the pain. no fever no shortness of breath sinus congestion better Physical Exam Constitutional: WD/WN, vitals as above Mild/moderate distress from pain Neck: trachea midline, no thyromegaly Respiratory: normal respiratory effort, lungs clear to auscultation Cardiovascular: RRR, no murmur, no edema Skin: no rashes, warm and dry Psychiatric: A+Ox3, euthymic affect Results & Data Results & Data ([facility]) Vital Signs (Past 12 Hours) Vital Signs Temp Pulse Pulse Resp BP BP BP 02/02/21 09:52 36.9 C 02/02/21 08:00 36.8 C 64 18 117/73 02/02/21 04:12 36.7 C 72 18 128/88 02/02/21 00:20 36.6 C 61 20 102/65 Pulse Ox 02/02/21 09:52 02/02/21 08:00 95 02/02/21 04:12 95 02/02/21 00:20 92
[2021-02-03] MEDS: ACETAMINOPHEN 325 MG TAB PO SCH ×6 (00:59→20:16)
[2021-02-03] MEDS: SODIUM CHLORIDE 0.45 % 1,000 ML IV SCH ×4 (02:00→17:57)
[2021-02-03] MEDS: HYDROmorphone INJ 1 MG/ML SYRINGE IV PRN ×5 (03:39→22:23)
[2021-02-03 07:00] LABS: Hematocrit (blood only) 26.1 % (37-47); Hemoglobin 9.3 g/dL (12.0-16.0); Mean Corpuscular Hemoglobin 33.2 pg (25-34); Mean Corpuscular Hgb Conc 35.6 g/dL (32-36); Mean Corpuscular Volume 93.2 fL (80-100); Mean Platelet Volume 10.2 fL (7.4-10.4); Nucleated RBC # (auto) 0.14 K/uL (0-0); Nucleated RBC % (auto) 3.5 %; Platelet Count 394 K/uL (130-400); RDW Coefficient of Variation 19.2 % (11.5-14.5); RDW Standard Deviation 64.8 fL (36.4-46.3); White Blood Count 3.93 K/uL (4.8-10.8)
[2021-02-03 07:23] LABS: Alanine Aminotransferase 28 (12-78); Albumin Level 3.5 gm/dl (3.4-5.0); Aspartate Aminotransferase 35 U/L (15-37); BUN Creatinine Ratio 8.8 (10-20); Blood Urea Nitrogen 4 mg/dl (7-18); Calcium 9.1 mg/dl (8.5-10.1); Carbon Dioxide 26 mmol/L (21-32); Chloride 104 mmol/L (98-107); Creatinine Clr Calc Pharmacy 183.2 ml/min; Est GFR (African American) > 150.0 ml/min; Est GFR (Non-African American) 137.4 ml/min; Glucose 76 mg/dl (70-99); Potassium 3.7 mmol/L (3.5-5.1); Sodium 137 mmol/L (136-145)
[2021-02-03 07:26] LABS: Albumin Globulin Ratio 0.9 (0.9-2); Alkaline Phosphatase 59 U/L (45-117); Bilirubin,Total 2.1 mg/dl (0.2-1); Globulin 3.9 gm/dl (2.5-4.0); Total Protein 7.4 gm/dl (6.4-8.2)
[2021-02-03 07:36] LABS: Anisocytosis Present; Basophils # (auto) 0.02 K/uL (0-0.2); Basophils % (auto) 0.5 %; Eosinophils # (auto) 0.12 K/uL (0-0.5); Eosinophils % (auto) 3.1 %; Immature Granulocytes # (auto) 0.01 K/uL (0.00-0.02); Immature Granulocytes % (auto) 0.3 %; Lymphocytes # (auto) 2.26 K/uL (1.2-3.4); Lymphocytes % (auto) 57.5 %; Monocytes # (auto) 0.24 K/uL (0.11-0.59); Monocytes % (auto) 6.1 %; Neutrophils # (auto) 1.28 K/uL (1.4-6.5); Neutrophils % (auto) 32.5 %; Polychromasia 1+; Sickle Cells 1+; Target Cells 1+
[2021-02-03] MEDS: TAPENTADOL HCL 50 MG TAB PO SCH ×2 (09:05→20:17)
[2021-02-03] MEDS: HYDROXYUREA 500 MG CAP PO SCH ×2 (09:05→20:18)
[2021-02-03] MEDS: PANTOprazole 40 MG TAB PO SCH (09:06)
[2021-02-03] MEDS: FLUTICASONE PROPIONATE NA SPR 16 GM BTL SCH ×2 (09:06→20:17)
[2021-02-03] MEDS: FOLIC ACID 1 MG TAB PO SCH (09:06)
[2021-02-03] MEDS: DULoxetine HCL 20 MG CAP PO SCH (09:06)
[2021-02-03] MEDS: ENOXAPARIN INJ 40 MG/0.4 ML SYR SQ SCH ×2 (09:06→20:17)
[2021-02-03] MEDS: MoRPHine SULFATE 2 MG/ML CARP IV PRN ×2 (10:35→16:17)
--- NOTE | 2021-02-03 13:05 | Hospitalist Progress Note ---
Date of Service February 03, 2021 Assessment & Plan (1) COVID-19: Plan: 20-year-old female with past medical history of borderline personality disorder, suicidal ideation, opioid-induced hyperalgesia, sickle cell disease, osteonecrosis of the hip admitted to the hospital for acute sickle cell crisis and COVID-19 infection. COVID-19 - Not hypoxic. 98% on RA Vaccinated, DVT prophylaxis with 40 mg of Lovenox daily given higher risk of clotting with both Covid and sickle cell disease Does not currently meet any indications for remdesivir, dexamethasone CRP elevated to 1.4, pro-Brian 0.16 on admission. Chest x-ray on admission negative for acute chest or severe Covid pneumonia -decongestant for sinus headache. Sickle cell crisis complicated by opioid-induced hyperalgesia -Sec to acute illness- COVID infection. Continuing Nucynta 50 mg p.o. twice daily per home taper shorten dilaudid frequency to 1 mg IV Dilaudid q2hrs prn severe pain control. Can step back and space out dosing as pain improves. Hold for sedation Narcan if needed Toradol 15 mg every 6 IV for moderate pain -s/p 2 units PRBC on 02/01 with appropriate rise in hb. h/h stable. Half-normal saline at 125 mL an hour for maintenance fluid oxygenation to help decrease vasoconstriction even if not hypoxic Abdominal pain -resolved Continue daily pantoprazole p.o. RUQ US normal Total bilirubin 2.7 Sickle cell disease Continue hydroxyurea 1 g p.o. twice daily Continue 1 g folate daily Goal hematocrit greater than 25. Transfuse as above. Reticulocyte count increased to 16 on admission, higher than usual DVT ppx: lovenox 40 sq FEN/GI: regular diet, 1/2 NS @ 125cc/hr Bowel regimen: daily miralax Code Status: Full Code Dispo: Med/Tele, isolation room (2) Avascular necrosis of bone of hip: (3) Nausea: (4) Hyperbilirubinemia: (5) Psychogenic nonepileptic seizure: (6) Borderline personality disorder: (7) Vaso-occlusive sickle cell crisis: (8) Opioid-induced hyperalgesia: Admission and Anticipated Discharge Date Admission Date: January 31, 2021 Subjective Not having a good day today. feeling dizzi. + nasal congestion pain persists no fever no shortness of breath Physical Exam Constitutional: WD/WN, vitals as above Neck: trachea midline, no thyromegaly Respiratory: normal respiratory effort, lungs clear to auscultation Cardiovascular: RRR, no murmur, no edema Skin: no rashes, warm and dry Psychiatric: A+Ox3, euthymic affect Results & Data Results & Data ([facility]) Vital Signs (Past 12 Hours) Vital Signs Temp Pulse Pulse Resp BP BP Pulse Ox 02/03/21 11:51 36.8 C 59 L 20 143/83 H 98 02/03/21 10:06 45 L 02/03/21 07:47 36.7 C 50 L 18 131/75 92 02/03/21 03:40 36.7 C 50 L 16 122/77 92
[2021-02-03] MEDS: ONDANSETRON INJ 2 MG/ML 2 ML VIAL IV PRN (13:25)
[2021-02-03] MEDS: PSEUDOEPHEDRINE HCL 30 MG TAB PO PRN (15:35)
[2021-02-03] MEDS: KETOROLAC TROMETHAMINE 15 MG/ML VIAL IV PRN ×2 (15:51→22:23)
[2021-02-04] MEDS: ACETAMINOPHEN 325 MG TAB PO SCH ×6 (00:27→21:09)
[2021-02-04] MEDS: ONDANSETRON INJ 2 MG/ML 2 ML VIAL IV PRN ×2 (01:31→09:09)
[2021-02-04] MEDS: HYDROmorphone INJ 1 MG/ML SYRINGE IV PRN ×6 (01:31→21:09)
[2021-02-04] MEDS: SODIUM CHLORIDE 0.45 % 1,000 ML IV SCH ×2 (05:01→13:04)
[2021-02-04] MEDS: KETOROLAC TROMETHAMINE 15 MG/ML VIAL IV PRN ×2 (08:49→16:48)
[2021-02-04] MEDS: FLUTICASONE PROPIONATE NA SPR 16 GM BTL SCH ×2 (08:49→21:25)
[2021-02-04] MEDS: TAPENTADOL HCL 50 MG TAB PO SCH ×2 (08:49→21:25)
[2021-02-04] MEDS: HYDROXYUREA 500 MG CAP PO SCH ×2 (08:50→21:26)
[2021-02-04] MEDS: DULoxetine HCL 20 MG CAP PO SCH (08:50)
[2021-02-04] MEDS: ENOXAPARIN INJ 40 MG/0.4 ML SYR SQ SCH ×2 (08:50→21:25)
[2021-02-04] MEDS: PANTOprazole 40 MG TAB PO SCH (08:50)
[2021-02-04] MEDS: FOLIC ACID 1 MG TAB PO SCH (08:50)
[2021-02-04] MEDS: PSEUDOEPHEDRINE HCL 30 MG TAB PO PRN (10:04)
--- NOTE | 2021-02-04 14:28 | Hospitalist Progress Note ---
Date of Service February 04, 2021 Assessment & Plan (1) COVID-19: Plan: 20-year-old female with past medical history of borderline personality disorder, suicidal ideation, opioid-induced hyperalgesia, sickle cell disease, osteonecrosis of the hip admitted to the hospital for acute sickle cell crisis and COVID-19 infection. COVID-19 Vaccinated, CRP elevated to 1.4, pro-Brian 0.16 on admission. Chest x-ray on admission negative for acute chest or severe Covid pneumonia -Pulse ox hovering around 90-94% in last 24hrs. No dyspnea. RR normal. -CRP and D-dimer pending -Though not dyspneic and RR normal, considering high risk for worsening due to h/o sickle cell ds and hypoxia - will start Remdesivir DVT prophylaxis with 40 mg of Lovenox daily given higher risk of clotting with both Covid and sickle cell disease -Will need dexamethasone if hypoxia/respiratory status worsens. -stop IVF to keep on dry side for COVID -decongestant for sinus headache. -morning labs ordered - cbc, cmp, cpk. Sickle cell crisis complicated by opioid-induced hyperalgesia -Sec to acute illness- COVID infection. Continuing Nucynta 50 mg p.o. twice daily per home taper shorten dilaudid frequency to 1 mg IV Dilaudid q2hrs prn severe pain control. Can step back and space out dosing as pain improves. Hold for sedation Narcan if needed Toradol 15 mg every 6 IV for moderate pain -s/p 2 units PRBC on 02/01 with appropriate rise in hb. h/h stable. oxygenation to help decrease vasoconstriction even if not hypoxic Abdominal pain -resolved Continue daily pantoprazole p.o. RUQ US normal Total bilirubin 2.7 Sickle cell disease Continue hydroxyurea 1 g p.o. twice daily Continue 1 g folate daily Goal hematocrit greater than 25. Transfuse as above. Reticulocyte count increased to 16 on admission, higher than usual DVT ppx: lovenox 40 sq FEN/GI: regular diet, Bowel regimen: daily miralax Code Status: Full Code Dispo: Med/Tele, isolation room (2) Avascular necrosis of bone of hip: (3) Nausea: (4) Hyperbilirubinemia: (5) Psychogenic nonepileptic seizure: (6) Borderline personality disorder: (7) Vaso-occlusive sickle cell crisis: (8) Opioid-induced hyperalgesia: Admission and Anticipated Discharge Date Admission Date: January 31, 2021 Subjective continuing to have severe pain. no dyspnea no fever Physical Exam Constitutional: WD/WN, vitals as above Neck: trachea midline, no thyromegaly Respiratory: normal respiratory effort, lungs clear to auscultation Cardiovascular: RRR, no murmur, no edema Skin: no rashes, warm and dry Psychiatric: A+Ox3, euthymic affect Results & Data Results & Data ([facility]) Vital Signs (Past 12 Hours) Vital Signs Temp Pulse Pulse Resp BP Pulse Ox 02/04/21 11:49 36.7 C 63 16 107/70 93 02/04/21 10:49 60 02/04/21 07:43 36.8 C 61 18 116/71 93 02/04/21 03:21 37 C 57 L 16 94/56 L 90
[2021-02-04 14:57] LABS: Hematocrit (blood only) 25.5 % (37-47); Hemoglobin 9.3 g/dL (12.0-16.0)
[2021-02-04 15:35] LABS: D Dimer 1830 ug/L FEU (0-500)
[2021-02-04] MEDS ORDERED: REMDESIVIR 200 MG in SODIUM CHLORIDE 0.9% 210 ML IV ONE (16:00)
[2021-02-04] MEDS ORDERED: SODIUM CHLORIDE 0.9% 10ML FLUSH IV SCH (18:00)
[2021-02-05] MEDS: HYDROmorphone INJ 1 MG/ML SYRINGE IV PRN ×6 (00:23→20:02)
[2021-02-05] MEDS: ACETAMINOPHEN 325 MG TAB PO SCH ×6 (00:23→21:11)
[2021-02-05 06:50] LABS: Hematocrit (blood only) 25.5 % (37-47); Hemoglobin 9.1 g/dL (12.0-16.0); Mean Corpuscular Hemoglobin 33.2 pg (25-34); Mean Corpuscular Hgb Conc 35.7 g/dL (32-36); Mean Corpuscular Volume 93.1 fL (80-100); Mean Platelet Volume 9.6 fL (7.4-10.4); Nucleated RBC # (auto) 0.33 K/uL (0-0); Nucleated RBC % (auto) 7.2 %; Platelet Count 378 K/uL (130-400); RDW Coefficient of Variation 20.8 % (11.5-14.5); RDW Standard Deviation 69.9 fL (36.4-46.3); Red Blood Count 2.74 M/uL (4.2-5.4)
[2021-02-05 07:16] LABS: Anisocytosis Present; Basophils # (auto) 0.03 K/uL (0-0.2); Basophils % (auto) 0.7 %; Eosinophils # (auto) 0.13 K/uL (0-0.5); Eosinophils % (auto) 2.9 %; Immature Granulocytes # (auto) 0.01 K/uL (0.00-0.02); Immature Granulocytes % (auto) 0.2 %; Lymphocytes # (auto) 2.44 K/uL (1.2-3.4); Lymphocytes % (auto) 54.2 %; Monocytes # (auto) 0.27 K/uL (0.11-0.59); Neutrophils # (auto) 1.62 K/uL (1.4-6.5); Polychromasia 1+; Sickle Cells 2+; Target Cells 1+
[2021-02-05 07:20] LABS: Alanine Aminotransferase 30 (12-78); Albumin Level 3.4 gm/dl (3.4-5.0); Aspartate Aminotransferase 43 U/L (15-37); BUN Creatinine Ratio 8.4 (10-20); Blood Urea Nitrogen 4 mg/dl (7-18); Calcium 9.1 mg/dl (8.5-10.1); Carbon Dioxide 27 mmol/L (21-32); Chloride 106 mmol/L (98-107); Creatinine Clr Calc Pharmacy 179.3 ml/min; Est GFR (African American) > 150.0 ml/min; Est GFR (Non-African American) 136.5 ml/min; Glucose 90 mg/dl (70-99); Potassium 3.6 mmol/L (3.5-5.1); Sodium 139 mmol/L (136-145)
[2021-02-05 07:23] LABS: Albumin Globulin Ratio 0.9 (0.9-2); Alkaline Phosphatase 62 U/L (45-117); Bilirubin,Total 1.8 mg/dl (0.2-1); Creatine Kinase 28 U/L (26-192); Globulin 3.9 gm/dl (2.5-4.0); Total Protein 7.3 gm/dl (6.4-8.2)
[2021-02-05] MEDS: HYDROXYUREA 500 MG CAP PO SCH ×2 (08:19→21:12)
[2021-02-05] MEDS: PSEUDOEPHEDRINE HCL 30 MG TAB PO PRN (08:19)
[2021-02-05] MEDS: DULoxetine HCL 20 MG CAP PO SCH (08:19)
[2021-02-05] MEDS: FOLIC ACID 1 MG TAB PO SCH (08:19)
[2021-02-05] MEDS: PANTOprazole 40 MG TAB PO SCH ×2 (08:19→21:13)
[2021-02-05] MEDS: ENOXAPARIN INJ 40 MG/0.4 ML SYR SQ SCH ×2 (08:20→21:12)
[2021-02-05] MEDS: FLUTICASONE PROPIONATE NA SPR 16 GM BTL SCH ×2 (08:20→21:11)
[2021-02-05] MEDS: TAPENTADOL HCL 50 MG TAB PO SCH ×2 (09:35→21:13)
[2021-02-05] MEDS ORDERED: PROCHLORPERAZINE 5 MG in SYRINGE 4 ML IV PRN (10:48)
[2021-02-05] MEDS ORDERED: TAPENTADOL HCL ER 50 MG TABCR PO SCH (11:00)
[2021-02-05] MEDS: D5W AND 1/2NSS 1,000 ML IV SCH ×2 (11:10→23:31)
[2021-02-05] MEDS: REMDESIVIR 100 MG in SODIUM CHLORIDE 0.9% 230 ML IV SCH (11:11)
[2021-02-05] MEDS: POLYETHYLENE (MIRALAX) 17 GM PACK PO SCH ×2 (11:24→21:13)
[2021-02-05] MEDS: ONDANSETRON INJ 2 MG/ML 2 ML VIAL IV SCH ×3 (11:24→23:31)
[2021-02-05] MEDS: FAMOTIDINE 20 MG TAB PO SCH ×2 (12:29→21:13)
[2021-02-05] MEDS: SODIUM CHLORIDE 0.9% 10ML FLUSH IV SCH (12:46)
[2021-02-05] MEDS ORDERED: TAPENTADOL HCL ER 50 MG TABCR PO PRN (15:00)
--- NOTE | 2021-02-05 19:25 | Hospitalist Progress Note ---
Date of Service February 05, 2021 Assessment & Plan (1) COVID-19: Plan: 20-year-old female with past medical history of borderline personality disorder, suicidal ideation, opioid-induced hyperalgesia, sickle cell disease, osteonecrosis of the hip admitted to the hospital for acute sickle cell crisis and COVID-19 infection. COVID-19 Vaccinated, day 8 of illness w minimal pneumonia / respiratory sx - doubt she will worsen CRP elevated to 1.4, pro-Brian 0.16 on admission. Chest x-ray on admission negative for acute chest or severe Covid pneumonia -Pulse ox hovering around 90-94% in last 24hrs. No dyspnea. RR normal. DVT prophylaxis with 40 mg of Lovenox daily given higher risk of clotting with both Covid and sickle cell disease -Will need dexamethasone if hypoxia/respiratory status worsens. Sickle cell crisis complicated by opioid-induced hyperalgesia -Sec to acute illness- COVID infection. After discussion with patientdoes not sound like she is ever really been on long-acting NucyntaI suspect given her chronic pain that a "basal bolus" pain regimen would likely be more beneficial to herstart Nucynta ER 50 mg twice daily, continue with the short acting 4 times daily as needed; for now while she is still acute crisis/acute pain syndrome precipitated by CovidDilaudid 1 mg every 2 hours as needed. -Given that she is having no respiratory symptomsresume IV fluids to help with the sickle cell pain as well Abdominal pain/nausea/lightheadedness -Suspect combination of pain causing nausea and lightheadedness, nausea causing of a bit of a vasovagal response, and the whole situation precipitating worsening indigestion/GERDscheduled Zofran, twice daily Protonix, twice daily Pepcid, as needed Compazine, fluids Sickle cell disease Continue hydroxyurea 1 g p.o. twice daily Continue 1 g folate daily Goal hematocrit greater than 25. Transfuse as above. Reticulocyte count increased to 16 on admission, higher than usual DVT ppx: lovenox 40 sq FEN/GI: regular diet, Bowel regimen: daily miralax Code Status: Full Code Dispo: Stable for MedSur, anticipate home after discharge (2) Avascular necrosis of bone of hip: (3) Nausea: (4) Hyperbilirubinemia: (5) Psychogenic nonepileptic seizure: (6) Borderline personality disorder: (7) Vaso-occlusive sickle cell crisis: (8) Opioid-induced hyperalgesia: Admission and Anticipated Discharge Date Admission Date: January 31, 2021 Subjective worreid about getting sicker w covid, although about day 8 of illness. pain all over c/w her sickle cell crises. also nauseated and lightheaded. Review of Systems Review of Systems: All systems reviewed & are unremarkable except as noted in HPI & below Physical Exam Physical Exam: gen aaox3 pleasant but fatigued nad heent nc at mmm breathing unlabored no accessory muscles good effort skin no rashes no pallor or icterus neuro no focal deficits Results & Data Results & Data ([facility]) Vital Signs (Past 12 Hours) Vital Signs Temp Pulse Pulse Resp BP Pulse Ox 02/05/21 16:00 98.1 F 58 L 18 106/61 93 02/05/21 14:17 50 L 02/05/21 11:39 98.1 F 50 L 18 127/77 98 02/05/21 08:00 98.1 F 51 L 18 119/71 95 PG Care Time/CCT Total # of Minutes Spent Total Time Spent with Patient: Total time spent is greater than 50% in coordination of care (as documented) at patient's floor/unit and/or counseling patient: Coding Level of Care Code 91092 Subseq Hosp Care Lvl 3 Diagnoses COVID-19 U07.1 Avascular necrosis of bone of hip M87.059 Nausea R11.0 Hyperbilirubinemia E80.6 Psychogenic nonepileptic seizure F44.5 Borderline personality disorder F60.3 Vaso-occlusive sickle cell crisis D57.00 Opioid-induced hyperalgesia R20.8; T40.2X5A
[2021-02-06] MEDS: ACETAMINOPHEN 325 MG TAB PO SCH ×6 (00:25→23:40)
[2021-02-06] MEDS: HYDROmorphone INJ 1 MG/ML SYRINGE IV PRN ×6 (00:28→23:53)
[2021-02-06] MEDS: ONDANSETRON INJ 2 MG/ML 2 ML VIAL IV SCH ×4 (05:18→23:40)
[2021-02-06 07:47] LABS: Alanine Aminotransferase 41 (12-78); Albumin Level 3.5 gm/dl (3.4-5.0); Aspartate Aminotransferase 61 U/L (15-37); BUN Creatinine Ratio 8.1 (10-20); Blood Urea Nitrogen 4 mg/dl (7-18); Calcium 9.2 mg/dl (8.5-10.1); Carbon Dioxide 26 mmol/L (21-32); Chloride 105 mmol/L (98-107); Creatinine Clr Calc Pharmacy 175.7 ml/min; Est GFR (African American) > 150.0 ml/min; Est GFR (Non-African American) 135.6 ml/min; Glucose 88 mg/dl (70-99); Potassium 3.5 mmol/L (3.5-5.1); Sodium 138 mmol/L (136-145)
[2021-02-06 07:50] LABS: Albumin Globulin Ratio 0.9 (0.9-2); Alkaline Phosphatase 57 U/L (45-117); Bilirubin,Total 2.1 mg/dl (0.2-1); Globulin 3.8 gm/dl (2.5-4.0); Total Protein 7.3 gm/dl (6.4-8.2)
[2021-02-06] MEDS: ENOXAPARIN INJ 40 MG/0.4 ML SYR SQ SCH ×2 (09:16→20:18)
[2021-02-06] MEDS: FLUTICASONE PROPIONATE NA SPR 16 GM BTL SCH ×2 (09:16→20:17)
[2021-02-06] MEDS: POLYETHYLENE (MIRALAX) 17 GM PACK PO SCH ×2 (09:16→20:18)
[2021-02-06] MEDS: PANTOprazole 40 MG TAB PO SCH ×2 (09:17→20:22)
[2021-02-06] MEDS: FAMOTIDINE 20 MG TAB PO SCH ×2 (09:17→20:20)
[2021-02-06] MEDS: FOLIC ACID 1 MG TAB PO SCH (09:17)
[2021-02-06] MEDS: HYDROXYUREA 500 MG CAP PO SCH ×2 (09:18→20:21)
[2021-02-06] MEDS: DULoxetine HCL 20 MG CAP PO SCH (09:18)
[2021-02-06] MEDS: TAPENTADOL HCL 50 MG TAB PO SCH ×2 (09:26→20:25)
[2021-02-06] MEDS: REMDESIVIR 100 MG in SODIUM CHLORIDE 0.9% 230 ML IV SCH (11:51)
[2021-02-06] MEDS: SODIUM CHLORIDE 0.9% 10ML FLUSH IV SCH (12:58)
[2021-02-06] MEDS: D5W AND 1/2NSS 1,000 ML IV SCH ×2 (12:58→23:40)
--- NOTE | 2021-02-06 15:33 | XRay Report ---
XR chest 2V PA/lateral HISTORY: 20 years-old Female chest pain, sickle cell acute chest pain with history of sickle cell di sease COMPARISON: Chest radiograph 01/31/2021 TECHNIQUE: PA and lateral views of the chest FINDINGS: The cardiac mediastinal and hilar silhouettes are unchanged. No pneumothorax, pleural effusion, airsp evans consolidation or overt pulmonary edema. H-shaped vertebral bodies redemonstrated compatible with the patient's clinical history of sickle cell disease. IMPRESSION: No acute process. ACT 112: Negative or not required by law. The above report was generated using voice recognition software. It may contain grammatical, syntax o r spelling errors. Electronically signed by: Tre Jennings M.D. 02/06/2021 3:32 PM
--- NOTE | 2021-02-06 16:21 | Hospitalist Progress Note ---
Date of Service February 06, 2021 Assessment & Plan (1) COVID-19: Plan: 20-year-old female with past medical history of borderline personality disorder, suicidal ideation, opioid-induced hyperalgesia, sickle cell disease, osteonecrosis of the hip admitted to the hospital for acute sickle cell crisis and COVID-19 infection. COVID-19 Vaccinated, day ~9 of illness w minimal pneumonia / respiratory sx - doubt she will worsen - suspect current chest pain is related to her sickle cell (she frequnetly has sternal pain without acute chest) CRP elevated to 1.4, pro-Brian 0.16 on admission. Chest x-ray on admission negative for acute chest or severe Covid pneumonia - repeating today to eval chest pain -Pulse ox hovering around 90-94% in last 24hrs. No dyspnea. RR normal. DVT prophylaxis with 40 mg of Lovenox daily given higher risk of clotting with both Covid and sickle cell disease -Will need dexamethasone if hypoxia/respiratory status worsens. unlikely to happen at this point, however. Sickle cell crisis complicated by opioid-induced hyperalgesia -Sec to acute illness- COVID infection. continue pain meds, escalate dilauded to 1.5mg -cxr given sternal pain - but strongly suspect this is her sternal pain that she commonly has given no hypoxia, no lung findings on exam Abdominal pain/nausea/lightheadedness -Suspect combination of pain causing nausea and lightheadedness, nausea causing of a bit of a vasovagal response, and the whole situation precipitating worsening indigestion/GERDcotninue scheduled Zofran, twice daily Protonix, twice daily Pepcid, as needed Compazine, fluids. add carafate Sickle cell disease Continue hydroxyurea 1 g p.o. twice daily Continue 1 g folate daily Goal hematocrit greater than 25. Transfuse as above. Reticulocyte count increased to 16 on admission, higher than usual -continue pain control DVT ppx: lovenox 40 sq FEN/GI: regular diet, Bowel regimen: tid miralax since no BM and this likely contributes to constipation as well Code Status: Full Code Dispo: Stable for MedSurg, anticipate home after discharge (2) Avascular necrosis of bone of hip: (3) Nausea: (4) Hyperbilirubinemia: (5) Psychogenic nonepileptic seizure: (6) Borderline personality disorder: (7) Vaso-occlusive sickle cell crisis: (8) Opioid-induced hyperalgesia: Admission and Anticipated Discharge Date Admission Date: January 31, 2021 Subjective ongoing chest pain although no sob ongoing nausea - worse after eating and hurts upper abdomen some aftr eating ongoing lightheadedness essnetially no better than yesterday no BM Review of Systems Review of Systems: All systems reviewed & are unremarkable except as noted in HPI & below Physical Exam Physical Exam: gen aao pleasant but fatigued appearing. heent nc at mmm lungs cta b/l no r/r/w good effort no accessory muscles good effort msk chest tender to palp sternally abd soft but (+) epigastric tenderness without guarding/rebound Results & Data Results & Data ([facility]) Vital Signs (Past 12 Hours) Vital Signs Temp Pulse Resp BP Pulse Ox 02/06/21 15:52 98.1 F 57 L 18 120/75 95 02/06/21 08:00 98.1 F 55 L 18 107/66 92 PG Care Time/CCT Total # of Minutes Spent Total Time Spent with Patient: Total time spent is greater than 50% in coordination of care (as documented) at patient's floor/unit and/or counseling patient: Coding Level of Care Code 03265 Subseq Hosp Care Lvl 3 Diagnoses COVID-19 U07.1 Avascular necrosis of bone of hip M87.059 Nausea R11.0 Hyperbilirubinemia E80.6 Psychogenic nonepileptic seizure F44.5 Borderline personality disorder F60.3 Vaso-occlusive sickle cell crisis D57.00 Opioid-induced hyperalgesia R20.8; T40.2X5A
--- NOTE | 2021-02-06 16:32 | Billing Data ---
Date of Service January 31, 2021 Coding Level of Care Code 84578 Initial Inpt Care Lvl 3
[2021-02-06] MEDS: SUCRALFATE 1 GM/10 ML UDC PO SCH ×2 (17:24→20:22)
[2021-02-07] MEDS: ACETAMINOPHEN 325 MG TAB PO SCH ×4 (05:07→23:04)
[2021-02-07] MEDS: ONDANSETRON INJ 2 MG/ML 2 ML VIAL IV SCH ×4 (05:07→23:04)
[2021-02-07] MEDS: HYDROmorphone INJ 1 MG/ML SYRINGE IV PRN ×4 (05:16→23:59)
[2021-02-07] MEDS: POLYETHYLENE (MIRALAX) 17 GM PACK PO SCH ×3 (09:50→20:26)
[2021-02-07] MEDS: ENOXAPARIN INJ 40 MG/0.4 ML SYR SQ SCH ×2 (09:50→20:17)
[2021-02-07] MEDS: HYDROXYUREA 500 MG CAP PO SCH ×2 (09:51→20:26)
[2021-02-07] MEDS: PANTOprazole 40 MG TAB PO SCH ×2 (09:51→20:26)
[2021-02-07] MEDS: FAMOTIDINE 20 MG TAB PO SCH ×2 (09:51→20:25)
[2021-02-07] MEDS: FLUTICASONE PROPIONATE NA SPR 16 GM BTL SCH ×2 (09:51→20:25)
[2021-02-07] MEDS: FOLIC ACID 1 MG TAB PO SCH (09:52)
[2021-02-07] MEDS: DULoxetine HCL 20 MG CAP PO SCH (09:52)
[2021-02-07] MEDS: SUCRALFATE 1 GM/10 ML UDC PO SCH ×4 (09:54→20:27)
[2021-02-07] MEDS: TAPENTADOL HCL 50 MG TAB PO SCH (10:01)
[2021-02-07] MEDS: REMDESIVIR 100 MG in SODIUM CHLORIDE 0.9% 230 ML IV SCH (11:49)
[2021-02-07] MEDS: SODIUM CHLORIDE 0.9% 10ML FLUSH IV SCH (13:00)
[2021-02-07] MEDS: D5W AND 1/2NSS 1,000 ML IV SCH (13:39)
--- NOTE | 2021-02-07 17:35 | Hospitalist Progress Note ---
Date of Service February 07, 2021 Assessment & Plan (1) COVID-19: Plan: 20-year-old female with past medical history of borderline personality disorder, suicidal ideation, opioid-induced hyperalgesia, sickle cell disease, osteonecrosis of the hip admitted to the hospital for acute sickle cell crisis and COVID-19 infection. COVID-19 Vaccinated, day ~9 of illness w minimal pneumonia / respiratory sx - doubt she will worsen - suspect current chest pain is related to her sickle cell (she frequently has sternal pain without acute chest syndrome CRP elevated to 1.4, pro-Brian 0.16 on admission. Chest x-ray on admission negative for acute chest or severe Covid pneumonia - repeating today to eval chest pain -Pulse ox hovering around 90-94% in last 24hrs. No dyspnea. RR normal. DVT prophylaxis with 40 mg of Lovenox daily given higher risk of clotting with both Covid and sickle cell disease -Will need dexamethasone if hypoxia/respiratory status worsens. unlikely to happen at this point, however. Sickle cell crisis complicated by opioid-induced hyperalgesia -Sec to acute illness- COVID infection. continue pain meds, escalated dilauded to 1.5mg, continue. -cxr was reassuring, vitals remained stable. Abdominal pain/nausea/lightheadedness -Suspect combination of pain causing nausea and lightheadedness, nausea causing of a bit of a vasovagal response, and the whole situation precipitating worsening indigestion/GERDcontinue scheduled Zofran, twice daily Protonix, twice daily Pepcid, as needed Compazine, fluids, and carafate. Follow with your today. If symptoms do not improve, or worsen, then would need to consider GI eval. Sickle cell disease Continue hydroxyurea 1 g p.o. twice daily Continue 1 g folate daily Goal hematocrit greater than 25. Transfuse as above. -continue pain control DVT ppx: lovenox 40 sq FEN/GI: regular diet, Bowel regimen: tid miralax since no BM and this likely contributes to abdominal pain as well Code Status: Full Code Dispo: Stable for MedSurg, anticipate home after discharge Admission and Anticipated Discharge Date Admission Date: January 31, 2021 Subjective Feeling probably about the same, but notes that she just woke up so she is really not quite sure how she is feeling it today. Notes that she was still having pain, still requiring IV medicines. Hard to tell how her stomach is feelingwe discussed that if it was not feeling better, I may need to enlist help from gastroenterology, and after we discussed what neck steps would be, she noted that she is really not quite sure how she is feeling and seem to want to give it through today to figure out if she is eating and drinking better. No respiratory complaints. Review of Systems Review of Systems: All systems reviewed & are unremarkable except as noted in HPI & below Physical Exam Physical Exam: In general she is awake and alert pleasant no distress. HEENT normocephalic atraumatic mucous membranes moist. Breathing unlabored no accessory muscle use good effort. Abdomen is soft nondistended nontender no masses organomegaly. Extremities show no cyanosis or clubbing. Neuro without focal deficits. Results & Data Results & Data ([facility]) Vital Signs (Past 12 Hours) Vital Signs Temp Pulse Resp BP Pulse Ox 02/07/21 15:31 98.2 F 76 18 114/71 95 02/07/21 08:05 97.9 F 57 L 18 114/70 94 PG Care Time/CCT Total # of Minutes Spent Total Time Spent with Patient: Total time spent is greater than 50% in coordination of care (as documented) at patient's floor/unit and/or counseling patient: Coding Level of Care Code 11121 Subseq Hosp Care Lvl 3 Diagnoses COVID-19 U07.1
[2021-02-07] MEDS ORDERED: TAPENTADOL HCL ER 50 MG TABCR PO PRN (18:08)
[2021-02-07] MEDS ORDERED: TAPENTADOL HCL 50 MG TAB PO PRN (18:08)
[2021-02-07] MEDS: PSEUDOEPHEDRINE HCL 30 MG TAB PO PRN (21:15)
[2021-02-07] MEDS: TAPENTADOL HCL ER 50 MG TABCR PO SCH (21:15)
[2021-02-08] MEDS: D5W AND 1/2NSS 1,000 ML IV SCH ×2 (02:13→14:45)
[2021-02-08] MEDS: HYDROmorphone INJ 1 MG/ML SYRINGE IV PRN ×7 (04:42→23:06)
[2021-02-08] MEDS: ACETAMINOPHEN 325 MG TAB PO SCH ×4 (05:03→23:14)
[2021-02-08] MEDS: ONDANSETRON INJ 2 MG/ML 2 ML VIAL IV SCH ×4 (05:03→23:06)
--- NOTE | 2021-02-08 05:59 | Electrocardiogram Report ---
Test Reason : Blood Pressure : / mmHG Vent. Rate : 056 BPM Atrial Rate : 056 BPM P-R Int : 210 ms QRS Dur : 092 ms QT Int : 430 ms P-R-T Axes : 041 066 057 degrees QTc Int : 414 ms Sinus bradycardia with 1st degree A-V block Possible Left atrial enlargement Borderline ECG When compared with ECG of 16-JAN-2021 10:16, ID interval has increased Vent. rate has decreased BY 57 BPM Confirmed by Pierre Marquez ([id number]) on 02/08/2021 5:59:18 AM Referred By: REFERRED SELF Confirmed By:Pierre Marquez
[2021-02-08 07:10] LABS: Mean Corpuscular Hgb Conc 34.7 g/dL (32-36); Mean Platelet Volume 10.5 fL (7.4-10.4); Platelet Count 324 K/uL (130-400)
[2021-02-08 07:42] LABS: Hematocrit (blood only) 26.5 % (37-47); Hemoglobin 9.2 g/dL (12.0-16.0); Mean Corpuscular Hemoglobin 33.2 pg (25-34); Mean Corpuscular Volume 95.7 fL (80-100); RDW Coefficient of Variation 21.3 % (11.5-14.5); RDW Standard Deviation 72.1 fL (36.4-46.3); Red Blood Count 2.77 M/uL (4.2-5.4); White Blood Count 3.87 K/uL (4.8-10.8)
[2021-02-08 07:45] LABS: Basophils # (auto) 0.07 K/uL (0-0.2); Basophils % (auto) 1.8 %; Eosinophils # (auto) 0.09 K/uL (0-0.5); Eosinophils % (auto) 2.3 %; Immature Granulocytes # (auto) 0.01 K/uL (0.00-0.02); Immature Granulocytes % (auto) 0.3 %; Lymphocytes # (auto) 2.73 K/uL (1.2-3.4); Lymphocytes % (auto) 70.5 %; Monocytes # (auto) 0.23 K/uL (0.11-0.59); Monocytes % (auto) 5.9 %; Neutrophils # (auto) 0.74 K/uL (1.4-6.5); Neutrophils % (auto) 19.2 %; Nucleated RBC # (auto) 0.71 K/uL (0-0); Nucleated RBC % (auto) 18.3 %
[2021-02-08 07:46] LABS: Anisocytosis Present; Polychromasia 1+; Sickle Cells 1+; Target Cells 1+
[2021-02-08 07:52] LABS: Alanine Aminotransferase 99 (12-78); Albumin Level 3.6 gm/dl (3.4-5.0); Aspartate Aminotransferase 123 U/L (15-37); BUN Creatinine Ratio 6.5 (10-20); Blood Urea Nitrogen 3 mg/dl (7-18); Calcium 9.1 mg/dl (8.5-10.1); Carbon Dioxide 26 mmol/L (21-32); Chloride 106 mmol/L (98-107); Est GFR (African American) > 150.0 ml/min; Est GFR (Non-African American) 138.3 ml/min; Glucose 91 mg/dl (70-99); Potassium 3.2 mmol/L (3.5-5.1); Sodium 137 mmol/L (136-145)
[2021-02-08 07:59] LABS: Albumin Globulin Ratio 0.9 (0.9-2); Alkaline Phosphatase 58 U/L (45-117); Globulin 3.9 gm/dl (2.5-4.0); Total Protein 7.5 gm/dl (6.4-8.2)
[2021-02-08] MEDS: HYDROXYUREA 500 MG CAP PO SCH ×2 (08:17→20:20)
[2021-02-08] MEDS: TAPENTADOL HCL ER 50 MG TABCR PO SCH ×2 (08:17→20:45)
[2021-02-08] MEDS: FOLIC ACID 1 MG TAB PO SCH (08:19)
[2021-02-08] MEDS: FAMOTIDINE 20 MG TAB PO SCH ×2 (08:19→20:19)
[2021-02-08] MEDS: PANTOprazole 40 MG TAB PO SCH ×2 (08:19→20:20)
[2021-02-08] MEDS: DULoxetine HCL 20 MG CAP PO SCH (08:19)
[2021-02-08] MEDS: FLUTICASONE PROPIONATE NA SPR 16 GM BTL SCH ×2 (08:20→20:19)
[2021-02-08] MEDS: SUCRALFATE 1 GM/10 ML UDC PO SCH ×4 (08:20→20:20)
[2021-02-08] MEDS: POLYETHYLENE (MIRALAX) 17 GM PACK PO SCH ×3 (08:20→20:20)
[2021-02-08] MEDS: ENOXAPARIN INJ 40 MG/0.4 ML SYR SQ SCH ×2 (08:20→20:18)
[2021-02-08] MEDS ORDERED: POTASSIUM CHLORIDE CRTAB 20 MEQ TABCR PO STA (09:12)
[2021-02-08] MEDS: SODIUM CHLORIDE 0.9% 10ML FLUSH IV SCH (11:40)
--- NOTE | 2021-02-08 19:37 | Hospitalist Progress Note ---
Date of Service February 08, 2021 Assessment & Plan (1) COVID-19: Plan: 20-year-old female with past medical history of borderline personality disorder, suicidal ideation, opioid-induced hyperalgesia, sickle cell disease, osteonecrosis of the hip admitted to the hospital for acute sickle cell crisis and COVID-19 infection. COVID-19 Vaccinated, day 10 or more of illness w minimal pneumonia / respiratory sx - doubt she will worsen clinically as it relates to the Covid infection at this point time CRP elevated to 1.4, pro-Brian 0.16 on admission. Chest x-ray on admission negative for acute chest or severe Covid pneumonia follow-up chest x-ray when she had worsening chest pain did not show any worsening Covid related findings or findings consistent with acute chest syndrome -Pulse ox hovering around 90-94% in last 24hrs. No dyspnea. RR normal. DVT prophylaxis with 40 mg of Lovenox daily given higher risk of clotting with both Covid and sickle cell disease -Will need dexamethasone if hypoxia/respiratory status worsens. unlikely to happen at this point, however. Sickle cell crisis complicated by opioid-induced hyperalgesia -Sec to acute illness- COVID infection. continue pain meds, escalated dilauded to 1.5mg, continue. For now we will hold short acting p.o. Nucynta as she currently notes that p.o. is not really helping, as she gets closer to discharge, can reinstitute p.o. as the primary with IV as a backup, but does not appear to be to her benefit at this time. (continue long-acting twice daily, and to consider titrating up) -cxr was reassuring, vitals remained stable. Abdominal pain/nausea/lightheadedness -Suspect combination of pain causing nausea and lightheadedness, nausea causing of a bit of a vasovagal response, and the whole situation precipitating worsening indigestion/GERDcontinue scheduled Zofran, twice daily Protonix, twice daily Pepcid, as needed Compazine, fluids, and carafate. Fortunately starting to improve, given that she has frequent bouts of this, consistent with gastritis, and this time is worse than others, it would be fairly reasonable to have her see GI as an outpatient in the reasonably near future to consider EGD Sickle cell disease Continue hydroxyurea 1 g p.o. twice daily Continue 1 g folate daily Goal hematocrit greater than 25. Transfuse as above. -continue pain control DVT ppx: lovenox 40 sq FEN/GI: regular diet, Bowel regimen: tid miralax since no BM and this likely contributes to abdominal pain as well Code Status: Full Code Dispo: Stable on MedSurg, anticipate home after discharge Admission and Anticipated Discharge Date Admission Date: January 31, 2021 Subjective No new complaintsongoing pain rather significantlyright now p.o. pain meds not really helping much at all, IV helps a good bit. Notes that while her stomach does not feel great, she no longer has constant nausea postprandial nausea or painshe is able to eat better. Worried about neutropenia, but has no fevers, no new respiratory symptoms, no new infectious symptoms at all. Review of Systems Review of Systems: All systems reviewed & are unremarkable except as noted in HPI & below Physical Exam Physical Exam: In general she is awake and alert pleasant no distress. HEENT normocephalic atraumatic mucous membranes moist. Breathing unlabored no accessory muscle use good effort. Skin shows no rashes no pallor or icterus. Neuro without focal deficits. Results & Data Results & Data ([facility]) Vital Signs (Past 12 Hours) Vital Signs Temp Pulse Pulse Resp BP Pulse Ox 02/08/21 15:37 98.6 F 56 L 12 125/80 95 02/08/21 12:50 98.6 F 56 L 17 149/89 H 95 02/08/21 07:46 98.2 F 55 L 18 114/68 95 PG Care Time/CCT Total # of Minutes Spent Total Time Spent with Patient: Total time spent is greater than 50% in coordination of care (as documented) at patient's floor/unit and/or counseling patient: Coding Level of Care Code 60980 Subseq Hosp Care Lvl 3 Diagnoses COVID-19 U07.1
[2021-02-09] MEDS: D5W AND 1/2NSS 1,000 ML IV SCH ×2 (01:34→13:40)
[2021-02-09] MEDS: HYDROmorphone INJ 1 MG/ML SYRINGE IV PRN ×8 (01:34→23:38)
[2021-02-09] MEDS: ONDANSETRON INJ 2 MG/ML 2 ML VIAL IV SCH ×4 (05:50→23:29)
[2021-02-09] MEDS: ACETAMINOPHEN 325 MG TAB PO SCH ×4 (06:13→23:29)
[2021-02-09 07:00] LABS: Mean Corpuscular Hgb Conc 35.5 g/dL (32-36); Mean Platelet Volume 9.9 fL (7.4-10.4); Platelet Count 412 K/uL (130-400)
[2021-02-09 07:31] LABS: Hematocrit (blood only) 25.9 % (37-47); Hemoglobin 9.2 g/dL (12.0-16.0); Mean Corpuscular Hemoglobin 34.3 pg (25-34); Mean Corpuscular Volume 96.6 fL (80-100); Nucleated RBC # (auto) 0.54 K/uL (0-0); Nucleated RBC % (auto) 12.7 %; RDW Coefficient of Variation 21.8 % (11.5-14.5); RDW Standard Deviation 77.4 fL (36.4-46.3); Red Blood Count 2.68 M/uL (4.2-5.4); White Blood Count 4.25 K/uL (4.8-10.8)
[2021-02-09 07:34] LABS: ALC (manual) 3.06 K/uL (1.2-3.4); ANC (manual) 0.93 K/uL (1.4-6.5); Alanine Aminotransferase 122 (12-78); Albumin Level 3.6 gm/dl (3.4-5.0); Anisocytosis Present; Aspartate Aminotransferase 156 U/L (15-37); BUN Creatinine Ratio 4.6 (10-20); Blood Urea Nitrogen 2 mg/dl (7-18); Calcium 9.2 mg/dl (8.5-10.1); Carbon Dioxide 29 mmol/L (21-32); Chloride 105 mmol/L (98-107); Creatinine Clr Calc Pharmacy 175.7 ml/min; Eosinophils # (manual) 0.04 K/uL (0-0.5); Eosinophils % (manual) 0.9 %; Est GFR (African American) > 150.0 ml/min; Est GFR (Non-African American) 135.6 ml/min; Glucose 87 mg/dl (70-99); Lymphocytes # (manual) 2.57 K/uL (1.2-3.4); Lymphocytes % (manual) 60.5 %; Monocytes # (manual) 0.23 K/uL (0.11-0.59); Monocytes % (manual) 5.3 %; Neutrophils # (manual) 0.93 K/uL (1.4-6.5); Neutrophils % (manual) 21.9 %; Polychromasia 1+; Potassium 3.4 mmol/L (3.5-5.1); Reactive Lymphocytes # (manual) 0.48 K/uL; Reactive Lymphocytes % (manual) 11.4 %; Sickle Cells 1+; Sodium 138 mmol/L (136-145); Target Cells 1+
[2021-02-09 07:37] LABS: Albumin Globulin Ratio 0.9 (0.9-2); Alkaline Phosphatase 59 U/L (45-117); Bilirubin,Total 2.3 mg/dl (0.2-1); Globulin 3.8 gm/dl (2.5-4.0); Total Protein 7.4 gm/dl (6.4-8.2)
[2021-02-09] MEDS: FLUTICASONE PROPIONATE NA SPR 16 GM BTL SCH ×2 (09:22→21:26)
[2021-02-09] MEDS: POTASSIUM CHLORIDE CRTAB 20 MEQ TABCR PO SCH ×3 (09:23→21:27)
[2021-02-09] MEDS: DULoxetine HCL 20 MG CAP PO SCH (09:23)
[2021-02-09] MEDS: SUCRALFATE 1 GM/10 ML UDC PO SCH ×4 (09:23→21:27)
[2021-02-09] MEDS: PANTOprazole 40 MG TAB PO SCH ×2 (09:23→21:27)
[2021-02-09] MEDS: FOLIC ACID 1 MG TAB PO SCH (09:23)
[2021-02-09] MEDS: FAMOTIDINE 20 MG TAB PO SCH ×2 (09:23→21:40)
[2021-02-09] MEDS: ENOXAPARIN INJ 40 MG/0.4 ML SYR SQ SCH ×2 (09:26→21:22)
[2021-02-09] MEDS: POLYETHYLENE (MIRALAX) 17 GM PACK PO SCH ×3 (09:31→21:37)
[2021-02-09] MEDS: HYDROXYUREA 500 MG CAP PO SCH ×2 (09:32→21:55)
[2021-02-09] MEDS: TAPENTADOL HCL ER 50 MG TABCR PO SCH ×2 (09:48→21:40)
[2021-02-09] MEDS ORDERED: MAGNESIUM CITRATE 296 ML/BTL PO PRN (19:00)
--- NOTE | 2021-02-09 19:08 | Hospitalist Progress Note ---
Date of Service February 09, 2021 Assessment & Plan (1) COVID-19: Plan: 20-year-old female with past medical history of borderline personality disorder, suicidal ideation, opioid-induced hyperalgesia, sickle cell disease, osteonecrosis of the hip admitted to the hospital for acute sickle cell crisis and COVID-19 infection. COVID-19 Vaccinated, >day 10 of illness w minimal pneumonia / respiratory sx, likely convalescent from Covid phase and management of pain/sickle cell as below CRP elevated to 1.4, pro-Brian 0.16 on admission. Chest x-ray on admission negative for acute chest or severe Covid pneumonia follow-up chest x-ray when she had worsening chest pain did not show any worsening Covid related findings or findings consistent with acute chest syndrome No dyspnea, tachypnea today. Pulse ox greater than 90% on room air DVT prophylaxis with 40 mg of Lovenox daily given higher risk of clotting with both Covid and sickle cell disease May add dexamethasone if develops hypoxia, low suspicion this will be required Sickle cell crisis complicated by opioid-induced hyperalgesia -Acute crisis precipitated by Covid pneumonia Currently requiring IV analgesia, currently requiring IV pain meds and adjustm ents for adequate analgesia of sickle crisis Nucynta held, can consider readding near discharge once pain control adequate. Has had minimal benefit to patient the past Continue hydromorphone Hemodynamically stable today Abdominal pain/nausea/lightheadedness Patient with abdominal pain and some nausea intermittently, improved at time of bedside assessment today Continue Zofran Continue Protonix twice daily, Pepcid twice daily Compazine as needed breakthrough, fluids as needed Somewhat improved today, if worsening and giving complicated history and symptoms have been worse than normal can consider outpatient GI follow-up and potential EGD for suspected gastritis follow-up Sickle cell disease Continue hydroxyurea 1 g p.o. twice daily Continue 1 g folate daily Goal hematocrit greater than 25. 25.9 today -continue pain control DVT ppx: lovenox 40 sq FEN/GI: regular diet, Bowel regimen: tid miralax since no BM and this likely contributes to abdominal pain as well. 1 dose max it per patient request, reports this is worked well for her in the past Code Status: Full Code Dispo: Stable on MedSurg, anticipate home after discharge Admission and Anticipated Discharge Date Admission Date: January 31, 2021 Subjective Heath is seen at the bedside. She reports she feels mostly the same as yesterday. Continues to have intermittent up to 8/10 pain in her arms, legs, and occasionally in the abdomen. She reports her pain is around a 6/10, but she is due for her pain medication soon today. Reports she has had some slight constipation and difficulty moving her bowels, reports this has resolved with her before with magnesium citrate. Does not feel short of breath, and has no cough and denies fever/chills/sweats at time of assessment. Is not having difficulty breathing. Review of Systems Review of Systems: All systems reviewed & are unremarkable except as noted in Subjective Physical Exam Physical Exam: General: A&Ox3. NAD. Cooperative. HEENT: Atraumatic, normocephalic. Visual acuity and hearing grossly intact. Pulm: CTAB A&P. -wheezes, -rales, -rhonchi. Symmetrical chest rise. No increase work of breathing. No respiratory distress. Cardiac: RRR, -mrg. Radial pulses intact and symmetrical. Abdominal: At time of exam abdomen is nontender to palpation, soft. Extremities: Moves all extremities equally, endorses some achy pain in right arm which improves with analgesia. Results & Data Results & Data ([facility]) Vital Signs (Past 12 Hours) Vital Signs Temp Pulse Resp BP Pulse Ox 02/09/21 14:55 36.7 C 58 L 18 118/79 94 02/09/21 07:33 36.7 C 62 18 110/71 94 PG Care Time/CCT Total # of Minutes Spent Total Time Spent with Patient: Total time spent is greater than 50% in coordination of care (as documented) at patient's floor/unit and/or counseling patient: Coding Level of Care Code 68849 Subseq Hosp Care Lvl 2 Diagnoses COVID-19 U07.1
[2021-02-10] MEDS: D5W AND 1/2NSS 1,000 ML IV SCH ×2 (02:32→15:25)
[2021-02-10] MEDS: HYDROmorphone INJ 1 MG/ML SYRINGE IV PRN ×8 (02:36→23:39)
[2021-02-10] MEDS: ACETAMINOPHEN 325 MG TAB PO SCH ×4 (05:47→23:32)
[2021-02-10] MEDS: ONDANSETRON INJ 2 MG/ML 2 ML VIAL IV SCH ×4 (05:47→23:32)
[2021-02-10] MEDS: FAMOTIDINE 20 MG TAB PO SCH ×2 (09:55→20:17)
[2021-02-10] MEDS: SUCRALFATE 1 GM/10 ML UDC PO SCH ×4 (09:55→20:18)
[2021-02-10] MEDS: TAPENTADOL HCL ER 50 MG TABCR PO SCH ×2 (09:55→20:18)
[2021-02-10] MEDS: DULoxetine HCL 20 MG CAP PO SCH (09:55)
[2021-02-10] MEDS: POLYETHYLENE (MIRALAX) 17 GM PACK PO SCH ×3 (09:55→20:18)
[2021-02-10] MEDS: PANTOprazole 40 MG TAB PO SCH ×2 (09:56→20:18)
[2021-02-10] MEDS: FOLIC ACID 1 MG TAB PO SCH (09:56)
[2021-02-10] MEDS: FLUTICASONE PROPIONATE NA SPR 16 GM BTL SCH ×2 (09:56→20:17)
[2021-02-10] MEDS: ENOXAPARIN INJ 40 MG/0.4 ML SYR SQ SCH ×2 (09:57→20:16)
[2021-02-10] MEDS: HYDROXYUREA 500 MG CAP PO SCH ×2 (10:21→20:12)
--- NOTE | 2021-02-10 21:14 | Hospitalist Progress Note ---
Date of Service February 10, 2021 Assessment & Plan (1) COVID-19: Plan: 20-year-old female with past medical history of borderline personality disorder, suicidal ideation, opioid-induced hyperalgesia, sickle cell disease, osteonecrosis of the hip admitted to the hospital for acute sickle cell crisis and COVID-19 infection. COVID-19 Vaccinated, >day 10 of illness w minimal pneumonia / respiratory sx, likely convalescent from Covid phase and management of pain/sickle cell as below CRP elevated to 1.4, pro-Brian 0.16 on admission. Chest x-ray on admission negative for acute chest or severe Covid pneumonia follow-up chest x-ray when she had worsening chest pain did not show any worsening Covid related findings or findings consistent with acute chest syndrome No dyspnea, tachypnea today. Pulse ox greater than 90% on room air DVT prophylaxis with 40 mg of Lovenox daily given higher risk of clotting with both Covid and sickle cell disease May add dexamethasone if develops hypoxia, low suspicion this will be required -On 02/10, discussed with Infection control. ok to transfer out of the COVID unit. Sickle cell crisis complicated by opioid-induced hyperalgesia -Acute crisis precipitated by Covid pneumonia Currently requiring IV analgesia, currently requiring IV pain meds and adjustments for adequate analgesia of sickle crisis Nucynta held, can consider readding near discharge once pain control adequate. Has had minimal benefit to patient the past Continue hydromorphone Hemodynamically stable today -will continue on above pain medicine. will try to taper tomorrow. Abdominal pain/nausea/lightheadedness Patient with abdominal pain and some nausea intermittently, improved at time of bedside assessment today Continue Zofran Continue Protonix twice daily, Pepcid twice daily Compazine as needed breakthrough, fluids as needed Somewhat improved today, if worsening and giving complicated history and symptoms have been worse than normal can consider outpatient GI follow-up and potential EGD for suspected gastritis follow-up Sickle cell disease Continue hydroxyurea 1 g p.o. twice daily Continue 1 g folate daily Goal hematocrit greater than 25. 25.9 today -continue pain control DVT ppx: lovenox 40 sq FEN/GI: regular diet, Bowel regimen: tid miralax since no BM and this likely contributes to abdominal pain as well. 1 dose max it per patient request, reports this is worked well for her in the past Code Status: Full Code Dispo: Stable on MedSurg, anticipate home after discharge Admission and Anticipated Discharge Date Admission Date: January 31, 2021 Subjective Patient reports no new symptoms. Pain appears to be improved. Review of Systems Review of Systems: All systems reviewed & are unremarkable except as noted in HPI & below Physical Exam Physical Exam: General: A&Ox3. NAD. Cooperative. HEENT: Atraumatic, normocephalic. Visual acuity and hearing grossly intact. Pulm: CTAB A&P. -wheezes, -rales, -rhonchi. Symmetrical chest rise. No increase work of breathing. No respiratory distress. Cardiac: RRR, -mrg. Radial pulses intact and symmetrical. Abdominal: At time of exam abdomen is nontender to palpation, soft. Extremities: Moves all extremities equally, endorses some achy pain in right arm which improves with analgesia. Results & Data Results & Data ([facility]) Vital Signs (Past 12 Hours) Vital Signs Temp Pulse Resp BP Pulse Ox Pulse Ox 02/10/21 20:05 95 02/10/21 15:29 37.1 C 78 18 116/77 95 PG Care Time/CCT Total # of Minutes Spent Total Time Spent with Patient: Total time spent is greater than 50% in coordination of care (as documented) at patient's floor/unit and/or counseling patient: Coding Level of Care Code 77182 Subseq Hosp Care Lvl 2 Diagnoses COVID-19 U07.1 Time Spent (min) 25
[2021-02-11] MEDS: HYDROmorphone INJ 1 MG/ML SYRINGE IV PRN ×9 (01:43→23:57)
[2021-02-11] MEDS: D5W AND 1/2NSS 1,000 ML IV SCH ×2 (04:04→16:37)
[2021-02-11] MEDS: ONDANSETRON INJ 2 MG/ML 2 ML VIAL IV SCH ×4 (05:30→23:04)
[2021-02-11] MEDS: ACETAMINOPHEN 325 MG TAB PO SCH ×4 (05:30→23:04)
[2021-02-11 06:12] LABS: Hematocrit (blood only) 27.4 % (37-47); Hemoglobin 9.5 g/dL (12.0-16.0); Mean Corpuscular Hemoglobin 34.5 pg (25-34); Mean Corpuscular Hgb Conc 34.7 g/dL (32-36); Mean Corpuscular Volume 99.6 fL (80-100); Nucleated RBC # (auto) 0.38 K/uL (0-0); Nucleated RBC % (auto) 8.8 %; Platelet Count 381 K/uL (130-400); RDW Standard Deviation 75.4 fL (36.4-46.3); Red Blood Count 2.75 M/uL (4.2-5.4); White Blood Count 4.29 K/uL (4.8-10.8)
[2021-02-11 06:35] LABS: BUN Creatinine Ratio 6.1 (10-20); Blood Urea Nitrogen 3 mg/dl (7-18); Calcium 8.6 mg/dl (8.5-10.1); Carbon Dioxide 30 mmol/L (21-32); Chloride 106 mmol/L (98-107); Creatinine Clr Calc Pharmacy 172.4 ml/min; Est GFR (African American) > 150.0 ml/min; Est GFR (Non-African American) 134.8 ml/min; Glucose 96 mg/dl (70-99); Potassium 3.6 mmol/L (3.5-5.1); Sodium 140 mmol/L (136-145)
[2021-02-11] MEDS: POLYETHYLENE (MIRALAX) 17 GM PACK PO SCH ×3 (08:54→21:11)
[2021-02-11] MEDS: FLUTICASONE PROPIONATE NA SPR 16 GM BTL SCH ×2 (08:59→21:14)
[2021-02-11] MEDS: SUCRALFATE 1 GM/10 ML UDC PO SCH ×4 (09:00→21:15)
[2021-02-11] MEDS: TAPENTADOL HCL ER 50 MG TABCR PO SCH ×2 (09:01→21:15)
[2021-02-11] MEDS: PANTOprazole 40 MG TAB PO SCH ×2 (09:01→21:15)
[2021-02-11] MEDS: DULoxetine HCL 20 MG CAP PO SCH (09:01)
[2021-02-11] MEDS: FOLIC ACID 1 MG TAB PO SCH (09:01)
[2021-02-11] MEDS: FAMOTIDINE 20 MG TAB PO SCH ×2 (09:01→21:14)
[2021-02-11] MEDS: ENOXAPARIN INJ 40 MG/0.4 ML SYR SQ SCH ×2 (09:01→21:14)
[2021-02-11] MEDS: HYDROXYUREA 500 MG CAP PO SCH ×2 (09:03→21:15)
--- NOTE | 2021-02-11 10:31 | Hospitalist Progress Note ---
Date of Service February 11, 2021 Assessment & Plan (1) COVID-19: Plan: 20-year-old female with past medical history of borderline personality disorder, suicidal ideation, opioid-induced hyperalgesia, sickle cell disease, osteonecrosis of the hip admitted to the hospital for acute sickle cell crisis and COVID-19 infection. COVID-19 Vaccinated, >day 10 of illness w minimal pneumonia / respiratory sx, likely convalescent from Covid phase and management of pain/sickle cell as below CRP elevated to 1.4, pro-Brian 0.16 on admission. Chest x-ray on admission negative for acute chest or severe Covid pneumonia follow-up chest x-ray when she had worsening chest pain did not show any worsening Covid related findings or findings consistent with acute chest syndrome No dyspnea, tachypnea today. Pulse ox greater than 90% on room air DVT prophylaxis with 40 mg of Lovenox daily given higher risk of clotting with both Covid and sickle cell disease May add dexamethasone if develops hypoxia, low suspicion this will be required -On 02/10, discussed with Infection control. ok to transfer out of the COVID unit. Sickle cell crisis complicated by opioid-induced hyperalgesia -Acute crisis precipitated by Covid pneumonia Currently requiring IV analgesia, currently requiring IV pain meds and adjustments for adequate analgesia of sickle crisis Nucynta held, can consider readding near discharge once pain control adequate. Has had minimal benefit to patient the past Continue hydromorphone Hemodynamically stable today -will continue on above pain medicine. Patient attemped to taper, failed, will try again tomorrow Abdominal pain/nausea/lightheadedness Patient with abdominal pain and some nausea intermittently Continue Zofran Continue Protonix twice daily, Pepcid twice daily Compazine as needed breakthrough, fluids as needed Somewhat improved today, if worsening and giving complicated history and symptoms have been worse than normal can consider outpatient GI follow-up and potential EGD for suspected gastritis follow-up Sickle cell disease Continue hydroxyurea 1 g p.o. twice daily Continue 1 g folate daily Goal hematocrit greater than 25. 25.9 today -continue pain control DVT ppx: lovenox 40 sq FEN/GI: regular diet, Bowel regimen: tid miralax since no BM and this likely contributes to abdominal pain as well. 1 dose max it per patient request, reports this is worked well for her in the past Code Status: Full Code Dispo: Stable on MedSurg, anticipate home after discharge (2) Avascular necrosis of bone of hip: (3) Nausea: (4) Hyperbilirubinemia: (5) Psychogenic nonepileptic seizure: (6) Borderline personality disorder: (7) Vaso-occlusive sickle cell crisis: (8) Opioid-induced hyperalgesia: Admission and Anticipated Discharge Date Admission Date: January 31, 2021 Supervising Physician Co-Signing Physician Notes Vaccinated, >day 10 of illness w minimal pneumonia / respiratory sx, likely convalescent from Covid phase and management of pain/sickle cell as below CRP elevated to 1.4, pro-Brian 0.16 on admission. Chest x-ray on admission negative for acute chest or severe Covid pneumonia follow-up chest x-ray when she had worsening chest pain did not show any worsening Covid related findings or findings consistent with acute chest syndrome No dyspnea, tachypnea today. Pulse ox greater than 90% on room air DVT prophylaxis with 40 mg of Lovenox daily given higher risk of clotting with both Covid and sickle cell disease May add dexamethasone if develops hypoxia, low suspicion this will be required -On 02/10, discussed with Infection control. ok to transfer out of the COVID unit. Patient feels like her pain is worse today. will try to transition to oral on a "good" day. Patient states she does not want to be here for new Year's and anticipates a discharge within next few days. Subjective 20yo Female seen at bedside, calm cooperative comfortable. She states good appetite, good bowel movementments, some nausea, rates her current pain as 6-7, or 7-8. States she tried to wean off pain medication but that did not work. She asks if she will be moved from the COVID quinones and if she still needs neutropenic precautions. Review of Systems Review of Systems: positive nausea, abd pain Negative fever chills Negative headache dizziness Negative chest pain palpitations SOB Negative vomitting diarrhea constipation Negative numbness tingling rash swelling Physical Exam Physical Exam: General: A&Ox3. NAD. Cooperative. HEENT: Atraumatic, normocephalic. Visual acuity and hearing grossly intact. Pulm: CTAB A&P. -wheezes, -rales, -rhonchi. Symmetrical chest rise. No increase work of breathing. No respiratory distress. Cardiac: RRR, -mrg. Radial pulses intact and symmetrical. Abdominal: abd tender to palpation in all quadrants, worse in RUQ Results & Data Results & Data ([facility]) Vital Signs (Past 12 Hours) Vital Signs Temp Pulse Resp BP Pulse Ox 02/11/21 07:34 36.9 C 89 16 118/73 97 Laboratory Results 02/11/21 02/11/21 Range/Units 05:38 05:38 WBC 4.29 L (4.8-10.8) K/uL RBC 2.75 L (4.2-5.4) M/uL Hgb 9.5 L (12.0-16.0) g/dL Hct 27.4 L (37-47) % MCV 99.6 (80-100) fL MCH 34.5 H (25-34) pg MCHC 34.7 (32-36) g/dL RDW Std Deviation 75.4 H (36.4-46.3) fL RDW Coeff of Nando 21.0 H (11.5-14.5) % Plt Count 381 (130-400) K/uL MPV 10.0 (7.4-10.4) fL Absolute Nucleated RBC 0.38 H (0-0) K/uL Nucleated RBC % (auto) 8.8 % Sodium 140 (136-145) mmol/L Potassium 3.6 (3.5-5.1) mmol/L Chloride 106 (98-107) mmol/L Carbon Dioxide 30 (21-32) mmol/L Anion Gap 4.0 (3-11) BUN 3 L (7-18) mg/dl Creatinine 0.53 L (0.6-1.2) mg/dl Est Cr Clr Drug Dosing 172.4 ml/min Est GFR ( Amer) > 150.0 ml/min Est GFR (Non-Af Amer) 134.8 ml/min BUN/Creatinine Ratio 6.1 L (10-20) Glucose 96 (70-99) mg/dl Calcium 8.6 (8.5-10.1) mg/dl Medications Administered Current Inpatient Medications Acetaminophen (Acetaminophen 325 Mg Tab) 650 mg PO Q6H [facility] Stop: 03/08/21 11:59 Last Admin: 02/11/21 17:20 Dose: 650 mg Documented by: Duloxetine HCl (Duloxetine Hcl 20 Mg Cap) 20 mg PO DAILY [facility] Stop: 03/03/21 08:59 Last Admin: 02/11/21 09:01 Dose: 20 mg Documented by: Enoxaparin Sodium (Enoxaparin Inj 40 Mg/0.4 Ml Syr) 40 mg SQ Q12H [facility] Stop: 03/02/21 20:59 Last Admin: 02/11/21 09:01 Dose: 40 mg Documented by: Famotidine (Famotidine 20 Mg Tab) 20 mg PO BID [facility] Stop: 03/07/21 10:59 Last Admin: 02/11/21 09:01 Dose: 20 mg Documented by: Fluticasone Propionate (Fluticasone Propionate Na Spr 16 Gm Btl) 2 sprays NA BID [facility] Stop: 03/03/21 20:59 Last Admin: 02/11/21 08:59 Dose: 2 sprays Documented by: Folic Acid (Folic Acid 1 Mg Tab) 2 mg PO DAILY [facility] Stop: 03/03/21 08:59 Last Admin: 02/11/21 09:01 Dose: 2 mg Documented by: Hydromorphone HCl (Hydromorphone Inj 1 Mg/Ml Syringe) 1.5 mg IV Q2HWA PRN PRN Reason: Pain (6,7,8,9,10) Stop: 02/16/21 11:59 Last Admin: 02/11/21 16:40 Dose: 1.5 mg Documented by: Hydroxyurea (Hydroxyurea 500 Mg Cap) 1,000 mg PO BID [facility] Stop: 03/02/21 20:59 Last Admin: 02/11/21 09:03 Dose: 1,000 mg Documented by: Dextrose/Sodium Chloride (D5w And 1/2nss) 1,000 mls @ 80 mls/hr IV .[id number] [facility] Stop: 03/07/21 10:59 Last Admin: 02/11/21 16:37 Dose: 80 mls/hr Documented by: Prochlorperazine 5 mg/ Syringe 5 mls @ 5 mls/min IV Q6H PRN PRN Reason: Nausea And Vomiting Stop: 03/07/21 10:47 Last Admin: 02/06/21 21:05 Dose: 5 mls/min Documented by: Magnesium Citrate (Magnesium Citrate 296 Ml/Btl) 148 ml PO TODAY@ PRN PRN Reason: constipation Stop: 03/11/21 18:59 Last Admin: 02/09/21 21:20 Dose: 148 ml Documented by: Naloxone HCl (Naloxone Hcl 0.4 Mg/1 Ml Vial/Carp) 0.4 mg IV Q1H PRN PRN Reason: Sedation Stop: 03/02/21 20:29 Ondansetron HCl (Ondansetron Inj 2 Mg/Ml 2 Ml Vial) 4 mg IV Q6H [facility] Stop: 03/07/21 10:59 Last Admin: 02/11/21 17:20 Dose: 4 mg Documented by: Pantoprazole Sodium (Pantoprazole 40 Mg Tab) 40 mg PO BID [facility] Stop: 03/07/21 20:59 Last Admin: 02/11/21 09:01 Dose: 40 mg Documented by: Polyethylene Glycol (Polyethylene (Miralax) 17 Gm Pack) 17 gm PO TID [facility] Stop: 03/08/21 20:59 Last Admin: 02/11/21 13:55 Dose: 17 gm Documented by: Pseudoephedrine HCl (Pseudoephedrine Hcl 30 Mg Tab) 30 mg PO Q6H PRN PRN Reason: head pressure Stop: 03/03/21 17:17 Last Admin: 02/07/21 21:15 Dose: 30 mg Documented by: Sucralfate (Sucralfate 1 Gm/10 Ml Udc) 1 gm PO QID [facility] Stop: 03/08/21 16:59 Last Admin: 02/11/21 17:20 Dose: 1 gm Documented by: Tapentadol (Tapentadol Hcl 50 Mg Tab) 50 mg PO QID PRN PRN Reason: pain Stop: 02/21/21 20:59 Last Admin: 02/08/21 03:47 Dose: 50 mg Documented by: Tapentadol (Tapentadol Hcl Er 50 Mg Tabcr) 50 mg PO BID [facility] Stop: 02/21/21 20:59 Last Admin: 02/11/21 09:01 Dose: 50 mg Documented by: Resident Activity Tracking Resident Involvement: Resident Care Provided Care Provided: Adult Hospital Medicine
--- NOTE | 2021-02-11 22:45 | Billing Data ---
Date of Service February 11, 2021 Coding Level of Care Code 27139 Subseq Hosp Care Lvl 2
[2021-02-12] MEDS: HYDROmorphone INJ 2 MG/ML SYR/VIAL IV PRN ×9 (02:01→23:44)
[2021-02-12] MEDS: D5W AND 1/2NSS 1,000 ML IV SCH ×2 (05:18→17:49)
[2021-02-12] MEDS: ONDANSETRON INJ 2 MG/ML 2 ML VIAL IV SCH ×4 (05:19→23:43)
[2021-02-12] MEDS: ACETAMINOPHEN 325 MG TAB PO SCH ×4 (05:19→23:43)
[2021-02-12] MEDS: PANTOprazole 40 MG TAB PO SCH ×2 (08:18→23:43)
[2021-02-12] MEDS: HYDROXYUREA 500 MG CAP PO SCH ×2 (08:18→23:41)
--- NOTE | 2021-02-12 08:18 | Hospitalist Progress Note ---
Date of Service February 12, 2021 Assessment & Plan (1) COVID-19: Plan: 20-year-old female with past medical history of borderline personality disorder, suicidal ideation, opioid-induced hyperalgesia, sickle cell disease, osteonecrosis of the hip admitted to the hospital for acute sickle cell crisis and COVID-19 infection. COVID-19 Vaccinated, >day 10 of illness w minimal pneumonia / respiratory sx, likely convalescent from Covid phase and management of pain/sickle cell as below CRP elevated to 1.4, pro-Brian 0.16 on admission. Chest x-ray on admission negative for acute chest or severe Covid pneumonia follow-up chest x-ray when she had worsening chest pain did not show any worsening Covid related findings or findings consistent with acute chest syndrome No dyspnea, tachypnea today. Pulse ox greater than 90% on room air DVT prophylaxis with 40 mg of Lovenox daily given higher risk of clotting with both Covid and sickle cell disease May add dexamethasone if develops hypoxia, low suspicion this will be required -On 02/10, discussed with Infection control. -patient ok to transfer out of COVID unit, will need separate room for neutropenic precautions, currently looking for beds Sickle cell crisis complicated by opioid-induced hyperalgesia -Acute crisis precipitated by Covid pneumonia Currently requiring IV analgesia, currently requiring IV pain meds and adjustments for adequate analgesia of sickle crisis Nucynta held, can consider readding near discharge once pain control adequate. Has had minimal benefit to patient the past Continue hydromorphone Hemodynamically stable today -will continue on above pain medicine. Patient attempting to taper -patient states she might feel ok to go home tomorrow Abdominal pain/nausea/lightheadedness Patient with abdominal pain and some nausea intermittently Continue Zofran Continue Protonix twice daily, Pepcid twice daily Compazine as needed breakthrough, fluids as needed Somewhat improved today, if worsening and giving complicated history and symptoms have been worse than normal can consider outpatient GI follow-up and potential EGD for suspected gastritis follow-up Sickle cell disease Continue hydroxyurea 1 g p.o. twice daily Continue 1 g folate daily Goal hematocrit greater than 25. 25.9 today -continue pain control DVT ppx: lovenox 40 sq FEN/GI: regular diet, Bowel regimen: tid miralax since no BM and this likely contributes to abdominal pain as well. 1 dose max it per patient request, reports this is worked well for her in the past Code Status: Full Code Dispo: Stable on MedSurg, anticipate home after discharge (2) Avascular necrosis of bone of hip: (3) Nausea: (4) Hyperbilirubinemia: (5) Psychogenic nonepileptic seizure: (6) Borderline personality disorder: (7) Vaso-occlusive sickle cell crisis: (8) Opioid-induced hyperalgesia: Admission and Anticipated Discharge Date Admission Date: January 31, 2021 Supervising Physician Co-Signing Physician Notes I also saw the patient with the resident physician and confirmed amaro portions of the history and physical examination. Agree with impression and plan as noted in the resident documentation. This afternoon, she was resting in bed; awakens to voice. She is pleasant. Pain seems generally well controlled at present and she notes improved pain control today as compared to yesterday. 112/73, 82, 24, 36.9 C, 100% on room air DATA Hemoglobin 8.9, WBC 4.9, total absolute neutrophils 2.4 Sodium 140, potassium 3.7, BUN 6, creatinine 0.53 A/P COVID-19 She was vaccinated and now greater than 10 days since symptom onset Suspect she would not be admitted based on her diagnosis; initially was more for the pain crisis associated with sickle cell. Will discuss with ID, but suspect can be transferred out of the Covid unit Sickle cell crisis Generally improving Resume home pain medications with as needed pain medications Additional per resident documentation Subjective 20yo Female seen at bedside, cooperative, in a depressed mood. Patient states pain improved from yesterday, less abd pain some chest pain, however does not feel like talking much at this time. Later in day, patient states she feels possibly ready to go home tomorrow, would like to be home for the rest of the holidays. Review of Systems Review of Systems: positive chest pain, abd pain Negative fever chills Negative headache dizziness Negative chest pain palpitations SOB Negative vomitting diarrhea constipation Negative numbness tingling rash swelling Physical Exam Physical Exam: General: A&Ox3. NAD. Cooperative. HEENT: Atraumatic, normocephalic. Visual acuity and hearing grossly intact. Pulm: CTAB A&P. -wheezes, -rales, -rhonchi. Symmetrical chest rise. No increase work of breathing. No respiratory distress. Cardiac: RRR, -mrg. Radial pulses intact and symmetrical. Abdominal: abd tender to palpation in all quadrants, worse in RUQ Results & Data Results & Data ([facility]) Vital Signs (Past 12 Hours) Vital Signs Temp Pulse Resp BP Pulse Ox 02/12/21 07:26 36.8 C 61 18 104/66 97 02/12/21 02:01 36.8 C 66 16 108/70 97 Laboratory Results 02/12/21 02/12/21 Range/Units 08:27 08:27 WBC 4.89 (4.8-10.8) K/uL RBC 2.58 L (4.2-5.4) M/uL Hgb 8.9 L (12.0-16.0) g/dL Hct 26.0 L (37-47) % MCV 100.8 H (80-100) fL MCH 34.5 H (25-34) pg MCHC 34.2 (32-36) g/dL RDW Std Deviation 75.5 H (36.4-46.3) fL RDW Coeff of Nando 20.6 H (11.5-14.5) % Plt Count 359 (130-400) K/uL MPV 9.7 (7.4-10.4) fL Absolute Nucleated RBC 0.24 H (0-0) K/uL Nucleated RBC % (auto) 5.0 % Neutrophils % (Manual) 49.1 % Lymphocytes % (Manual) 49.1 % Eosinophils % (Manual) 1.8 % Neutrophils # (Manual) 2.40 (1.4-6.5) K/uL Total Absolute Neuts 2.40 (1.4-6.5) K/uL Lymphocytes # (Manual) 2.40 (1.2-3.4) K/uL Total Abs Lymphocytes 2.40 (1.2-3.4) K/uL Eosinophils # (Manual) 0.09 (0-0.5) K/uL Hypersegmented Neuts 1+ Anisocytosis Present Pappenheimer Bodies 1+ Sickle Cells 1+ Target Cells 1+ Sodium 140 (136-145) mmol/L Potassium 3.7 (3.5-5.1) mmol/L Chloride 104 (98-107) mmol/L Carbon Dioxide 30 (21-32) mmol/L Anion Gap 6.0 (3-11) BUN 6 L (7-18) mg/dl Creatinine 0.53 L (0.6-1.2) mg/dl Est Cr Clr Drug Dosing 172.4 ml/min Est GFR ( Amer) > 150.0 ml/min Est GFR (Non-Af Amer) 134.8 ml/min BUN/Creatinine Ratio 11.9 (10-20) Glucose 87 (70-99) mg/dl Calcium 8.8 (8.5-10.1) mg/dl Resident Activity Tracking Resident Involvement: Resident Care Provided Care Provided: Adult [facility]
[2021-02-12] MEDS: FLUTICASONE PROPIONATE NA SPR 16 GM BTL SCH ×2 (08:19→23:42)
[2021-02-12] MEDS: FOLIC ACID 1 MG TAB PO SCH (08:20)
[2021-02-12] MEDS: ENOXAPARIN INJ 40 MG/0.4 ML SYR SQ SCH ×2 (08:20→23:42)
[2021-02-12] MEDS: SUCRALFATE 1 GM/10 ML UDC PO SCH ×4 (08:20→23:43)
[2021-02-12] MEDS: DULoxetine HCL 20 MG CAP PO SCH (08:21)
[2021-02-12] MEDS: FAMOTIDINE 20 MG TAB PO SCH ×2 (08:28→23:42)
[2021-02-12] MEDS: TAPENTADOL HCL ER 50 MG TABCR PO SCH ×2 (08:28→20:58)
[2021-02-12] MEDS: POLYETHYLENE (MIRALAX) 17 GM PACK PO SCH ×4 (08:28→23:43)
[2021-02-12 08:53] LABS: Hemoglobin 8.9 g/dL (12.0-16.0); Mean Corpuscular Hemoglobin 34.5 pg (25-34); Mean Corpuscular Hgb Conc 34.2 g/dL (32-36); Mean Corpuscular Volume 100.8 fL (80-100); Mean Platelet Volume 9.7 fL (7.4-10.4); Nucleated RBC # (auto) 0.24 K/uL (0-0); Platelet Count 359 K/uL (130-400); RDW Coefficient of Variation 20.6 % (11.5-14.5); RDW Standard Deviation 75.5 fL (36.4-46.3); Red Blood Count 2.58 M/uL (4.2-5.4); White Blood Count 4.89 K/uL (4.8-10.8)
[2021-02-12 09:15] LABS: Anisocytosis Present; Eosinophils # (manual) 0.09 K/uL (0-0.5); Eosinophils % (manual) 1.8 %; Lymphocytes % (manual) 49.1 %; Neutrophils % (manual) 49.1 %; Pappenheimer Bodies 1+; Sickle Cells 1+; Target Cells 1+
[2021-02-12 09:29] LABS: BUN Creatinine Ratio 11.9 (10-20); Blood Urea Nitrogen 6 mg/dl (7-18); Calcium 8.8 mg/dl (8.5-10.1); Carbon Dioxide 30 mmol/L (21-32); Chloride 104 mmol/L (98-107); Creatinine Clr Calc Pharmacy 172.4 ml/min; Est GFR (African American) > 150.0 ml/min; Est GFR (Non-African American) 134.8 ml/min; Glucose 87 mg/dl (70-99); Potassium 3.7 mmol/L (3.5-5.1); Sodium 140 mmol/L (136-145)
[2021-02-13] MEDS: HYDROmorphone INJ 2 MG/ML SYR/VIAL IV PRN ×8 (01:49→22:07)
[2021-02-13] MEDS: ACETAMINOPHEN 325 MG TAB PO SCH ×3 (05:57→17:57)
[2021-02-13] MEDS: ONDANSETRON INJ 2 MG/ML 2 ML VIAL IV SCH ×3 (05:57→17:00)
[2021-02-13] MEDS: D5W AND 1/2NSS 1,000 ML IV SCH ×2 (05:57→18:00)
[2021-02-13 06:05] LABS: Hematocrit (blood only) 24.5 % (37-47); Hemoglobin 8.6 g/dL (12.0-16.0); Mean Corpuscular Hemoglobin 35.1 pg (25-34); Mean Corpuscular Hgb Conc 35.1 g/dL (32-36); Mean Platelet Volume 9.6 fL (7.4-10.4); Nucleated RBC # (auto) 0.23 K/uL (0-0); Nucleated RBC % (auto) 4.5 %; Platelet Count 331 K/uL (130-400); RDW Coefficient of Variation 20.6 % (11.5-14.5); RDW Standard Deviation 74.3 fL (36.4-46.3); Red Blood Count 2.45 M/uL (4.2-5.4); White Blood Count 5.19 K/uL (4.8-10.8)
[2021-02-13 06:34] LABS: Anisocytosis Present; Basophils # (auto) 0.02 K/uL (0-0.2); Basophils % (auto) 0.4 %; Eosinophils # (auto) 0.17 K/uL (0-0.5); Eosinophils % (auto) 3.3 %; Howell-Jolly Bodies 1+; Immature Granulocytes # (auto) 0.01 K/uL (0.00-0.02); Immature Granulocytes % (auto) 0.2 %; Lymphocytes # (auto) 2.87 K/uL (1.2-3.4); Lymphocytes % (auto) 55.3 %; Monocytes % (auto) 3.9 %; Neutrophils # (auto) 1.92 K/uL (1.4-6.5); Neutrophils % (auto) 36.9 %; Pappenheimer Bodies 1+; Sickle Cells Occasional; Target Cells 1+
[2021-02-13 06:47] LABS: BUN Creatinine Ratio 12.4 (10-20); Blood Urea Nitrogen 7 mg/dl (7-18); Calcium 9.1 mg/dl (8.5-10.1); Carbon Dioxide 31 mmol/L (21-32); Chloride 103 mmol/L (98-107); Creatinine Clr Calc Pharmacy 172.4 ml/min; Est GFR (African American) > 150.0 ml/min; Est GFR (Non-African American) 134.8 ml/min; Glucose 90 mg/dl (70-99); Potassium 3.5 mmol/L (3.5-5.1); Sodium 137 mmol/L (136-145)
[2021-02-13] MEDS: PANTOprazole 40 MG TAB PO SCH ×2 (08:14→22:07)
[2021-02-13] MEDS: HYDROXYUREA 500 MG CAP PO SCH ×2 (08:14→22:05)
[2021-02-13] MEDS: FLUTICASONE PROPIONATE NA SPR 16 GM BTL SCH ×2 (08:14→22:07)
[2021-02-13] MEDS: FAMOTIDINE 20 MG TAB PO SCH ×2 (08:14→22:06)
[2021-02-13] MEDS: TAPENTADOL HCL ER 50 MG TABCR PO SCH ×2 (08:14→22:06)
[2021-02-13] MEDS: ENOXAPARIN INJ 40 MG/0.4 ML SYR SQ SCH ×2 (08:15→22:06)
[2021-02-13] MEDS: POLYETHYLENE (MIRALAX) 17 GM PACK PO SCH ×3 (08:16→22:07)
[2021-02-13] MEDS: FOLIC ACID 1 MG TAB PO SCH (08:16)
[2021-02-13] MEDS: SUCRALFATE 1 GM/10 ML UDC PO SCH ×4 (08:16→22:07)
[2021-02-13] MEDS: DULoxetine HCL 20 MG CAP PO SCH (08:17)
--- NOTE | 2021-02-13 13:55 | Hospitalist Progress Note ---
Date of Service February 13, 2021 Assessment & Plan (1) COVID-19: Plan: 20-year-old female with past medical history of borderline personality disorder, suicidal ideation, opioid-induced hyperalgesia, sickle cell disease, osteonecrosis of the hip admitted to the hospital for acute sickle cell crisis and COVID-19 infection. Sickle cell crisis complicated by opioid-induced hyperalgesia -Acute crisis precipitated by Covid pneumonia Currently requiring IV analgesia, currently requiring IV pain meds and adjustments for adequate analgesia of sickle crisis Nucynta held, can consider readding near discharge once pain control adequate. Has had minimal benefit to patient the past Continue hydromorphone Hemodynamically stable today -will continue on above pain medicine. Patient attempting to taper -02/13 patient states she wants to go home however currently in too much pain to tolerate at home, will see how she does tomorrow. Hbg 8.6, consider blood transfusion if pain continues. Based on exam her condition is still primarily due to her sickle cell, unlikely to be pulmonary or cardiac COVID-19 Vaccinated, >day 10 of illness w minimal pneumonia / respiratory sx, likely convalescent from Covid phase and management of pain/sickle cell as below CRP elevated to 1.4, pro-Brian 0.16 on admission. Chest x-ray on admission negative for acute chest or severe Covid pneumonia follow-up chest x-ray when she had worsening chest pain did not show any worsening Covid related findings or findings consistent with acute chest syndrome No dyspnea, tachypnea today. Pulse ox greater than 90% on room air DVT prophylaxis with 40 mg of Lovenox daily given higher risk of clotting with both Covid and sickle cell disease May add dexamethasone if develops hypoxia, low suspicion this will be required -On 02/10, discussed with Infection control. -patient ok to transfer out of COVID unit, will need separate room for neutropenic precautions, currently looking for beds Abdominal pain/nausea/lightheadedness Patient with abdominal pain and some nausea intermittently Continue Zofran Continue Protonix twice daily, Pepcid twice daily Compazine as needed breakthrough, fluids as needed if worsening and giving complicated history and symptoms have been worse than normal can consider outpatient GI follow-up and potential EGD for suspected gastritis follow-up Sickle cell disease Continue hydroxyurea 1 g p.o. twice daily Continue 1 g folate daily Goal hematocrit greater than 25. 25.9 today -continue pain control DVT ppx: lovenox 40 sq FEN/GI: regular diet, Bowel regimen: tid miralax since no BM and this likely contributes to abdominal pain as well. 1 dose max it per patient request, reports this is worked well for her in the past Code Status: Full Code Dispo: Stable on MedSurg, anticipate home after discharge (2) Avascular necrosis of bone of hip: (3) Nausea: (4) Hyperbilirubinemia: (5) Psychogenic nonepileptic seizure: (6) Borderline personality disorder: (7) Vaso-occlusive sickle cell crisis: (8) Opioid-induced hyperalgesia: Admission and Anticipated Discharge Date Admission Date: January 31, 2021 Supervising Physician Co-Signing Physician Notes I also saw the patient with the resident physician and confirmed amaro portions of the history and physical examination. Agree with impression and plan as noted in the resident documentation. Unfortunately today, her pain is little worse. She complains of pain in the abdominal area predominantly, and into the epigastric area. 110/70, 60, 18, 36.4, 97% on room air Alert and oriented. No acute distress appreciated. Slightly tearful. Reactive and appropriate affect Heart regular rate and rhythm. Lungs are clear with nonlabored respirations Abdomen is soft; she describes pain, but no tenderness upon exam DATA Hemoglobin 8.6, down slightly from 8.9 yesterday. BUN 7, creatinine 0.53 A/P COVID-19 She was vaccinated and now greater than 10 days since symptom onset Essentially asymptomatic Sickle cell crisis Generally improving up until overnight/this a.m., with increased pain Hemodynamically stable, no respiratory difficulty Continue current pain medications Heating pad to abdominal area, as this sometimes works for her at home Repeat hemoglobin in a.m.; consider transfusion Additional per resident documentation Subjective 20yo Female seen at bedside, cooperative, in a depressed mood. Patient states she was looking forward to going home today, however overnight her pain incr eased to 9/10 across her chest, abd, back, and left leg, she has had similar pains before but not this bad, is worried something else may also be going on. She has used pain medication every 2 hours to manage the pain, is unsure if she can mangement this level at home at this time. Patient is tearful, states she wanted to be home for the holidays. Review of Systems Review of Systems: positive chest pain, abd pain, left leg pain, back pain Negative fever chills Negative headache dizziness Negative palpitations SOB Negative nausea vomitting diarrhea constipation Negative numbness tingling rash swelling Physical Exam Constitutional: average body habitus, cooperative and + in distress; + uncomfortable Eyes: PERRL, conjunctivae normal, anicteric sclerae Respiratory: normal respiratory effort, lungs clear to auscultation Cardiovascular: RRR, no murmur, no edema Heart Sounds: normal S1 and normal S2 Gastrointestinal (Abdomen): Inspection/Auscultation: abdomen normal to inspection; abdomen not distended Percussion/Palpation: + abdomen tender (diffusely) Skin: no rashes, warm and dry Psychiatric: Orientation: alert and oriented x 3 Affect: + depressed affect Results & Data Results & Data ([facility]) Vital Signs (Past 12 Hours) Vital Signs Temp Pulse Resp BP Pulse Ox 02/13/21 07:38 36.8 C 66 16 95/59 L 96 Laboratory Results 02/13/21 02/13/21 Range/Units 05:47 05:47 WBC 5.19 (4.8-10.8) K/uL RBC 2.45 L (4.2-5.4) M/uL Hgb 8.6 L (12.0-16.0) g/dL Hct 24.5 L (37-47) % MCV 100.0 (80-100) fL MCH 35.1 H (25-34) pg MCHC 35.1 (32-36) g/dL RDW Std Deviation 74.3 H (36.4-46.3) fL RDW Coeff of Nando 20.6 H (11.5-14.5) % Plt Count 331 (130-400) K/uL MPV 9.6 (7.4-10.4) fL Immature Gran % (Auto) 0.2 % Neut % (Auto) 36.9 % Lymph % (Auto) 55.3 % Stark % (Auto) 3.9 % Eos % (Auto) 3.3 % Baso % (Auto) 0.4 % Neut # (Auto) 1.92 (1.4-6.5) K/uL Lymph # (Auto) 2.87 (1.2-3.4) K/uL Stark # (Auto) 0.20 (0.11-0.59) K/uL Eos # (Auto) 0.17 (0-0.5) K/uL Baso # (Auto) 0.02 (0-0.2) K/uL Immature Gran # (Auto) 0.01 (0.00-0.02) K/uL Absolute Nucleated RBC 0.23 H (0-0) K/uL Nucleated RBC % (auto) 4.5 % Hypersegmented Neuts 1+ Anisocytosis Present Pappenheimer Bodies 1+ Sickle Cells Occasional Target Cells 1+ Booth-Escalon Bodies 1+ Sodium 137 (136-145) mmol/L Potassium 3.5 (3.5-5.1) mmol/L Chloride 103 (98-107) mmol/L Carbon Dioxide 31 (21-32) mmol/L Anion Gap 3.0 (3-11) BUN 7 (7-18) mg/dl Creatinine 0.53 L (0.6-1.2) mg/dl Est Cr Clr Drug Dosing 172.4 ml/min Est GFR ( Amer) > 150.0 ml/min Est GFR (Non-Af Amer) 134.8 ml/min BUN/Creatinine Ratio 12.4 (10-20) Glucose 90 (70-99) mg/dl Calcium 9.1 (8.5-10.1) mg/dl Medications Administered Current Inpatient Medications Acetaminophen (Acetaminophen 325 Mg Tab) 650 mg PO Q6H [facility] Stop: 03/08/21 11:59 Last Admin: 02/13/21 12:03 Dose: 650 mg Documented by: Duloxetine HCl (Duloxetine Hcl 20 Mg Cap) 20 mg PO DAILY [facility] Stop: 03/03/21 08:59 Last Admin: 02/13/21 08:17 Dose: 20 mg Documented by: Enoxaparin Sodium (Enoxaparin Inj 40 Mg/0.4 Ml Syr) 40 mg SQ Q12H [facility] Stop: 03/02/21 20:59 Last Admin: 02/13/21 08:15 Dose: 40 mg Documented by: Famotidine (Famotidine 20 Mg Tab) 20 mg PO BID [facility] Stop: 03/07/21 10:59 Last Admin: 02/13/21 08:14 Dose: 20 mg Documented by: Fluticasone Propionate (Fluticasone Propionate Na Spr 16 Gm Btl) 2 sprays NA BID [facility] Stop: 03/03/21 20:59 Last Admin: 02/13/21 08:14 Dose: 2 sprays Documented by: Folic Acid (Folic Acid 1 Mg Tab) 2 mg PO DAILY [facility] Stop: 03/03/21 08:59 Last Admin: 02/13/21 08:16 Dose: 2 mg Documented by: Hydromorphone HCl (Hydromorphone Inj 2 Mg/Ml Syr/Vial) 1.5 mg IV Q2HWA PRN PRN Reason: Pain (6,7,8,9,10) Stop: 02/26/21 00:03 Last Admin: 02/13/21 14:02 Dose: 1.5 mg Documented by: Hydroxyurea (Hydroxyurea 500 Mg Cap) 1,000 mg PO BID [facility] Stop: 03/02/21 20:59 Last Admin: 02/13/21 08:14 Dose: 1,000 mg Documented by: Dextrose/Sodium Chloride (D5w And 1/2nss) 1,000 mls @ 80 mls/hr IV .[id number] [facility] Stop: 03/07/21 10:59 Last Admin: 02/13/21 05:57 Dose: 80 mls/hr Documented by: Prochlorperazine 5 mg/ Syringe 5 mls @ 5 mls/min IV Q6H PRN PRN Reason: Nausea And Vomiting Stop: 03/07/21 10:47 Last Admin: 02/06/21 21:05 Dose: 5 mls/min Documented by: Magnesium Citrate (Magnesium Citrate 296 Ml/Btl) 148 ml PO TODAY@ PRN PRN Reason: constipation Stop: 03/11/21 18:59 Last Admin: 02/09/21 21:20 Dose: 148 ml Documented by: Naloxone HCl (Naloxone Hcl 0.4 Mg/1 Ml Vial/Carp) 0.4 mg IV Q1H PRN PRN Reason: Sedation Stop: 03/02/21 20:29 Ondansetron HCl (Ondansetron Inj 2 Mg/Ml 2 Ml Vial) 4 mg IV Q6H [facility] Stop: 03/07/21 10:59 Last Admin: 02/13/21 10:52 Dose: 4 mg Documented by: Pantoprazole Sodium (Pantoprazole 40 Mg Tab) 40 mg PO BID [facility] Stop: 03/07/21 20:59 Last Admin: 02/13/21 08:14 Dose: 40 mg Documented by: Polyethylene Glycol (Polyethylene (Miralax) 17 Gm Pack) 17 gm PO TID [facility] Stop: 03/08/21 20:59 Last Admin: 02/13/21 14:02 Dose: 17 gm Documented by: Pseudoephedrine HCl (Pseudoephedrine Hcl 30 Mg Tab) 30 mg PO Q6H PRN PRN Reason: head pressure Stop: 03/03/21 17:17 Last Admin: 02/07/21 21:15 Dose: 30 mg Documented by: Sucralfate (Sucralfate 1 Gm/10 Ml Udc) 1 gm PO QID [facility] Stop: 03/08/21 16:59 Last Admin: 02/13/21 12:03 Dose: 1 gm Documented by: Tapentadol (Tapentadol Hcl 50 Mg Tab) 50 mg PO QID PRN PRN Reason: pain Stop: 02/21/21 20:59 Last Admin: 02/08/21 03:47 Dose: 50 mg Documented by: Tapentadol (Tapentadol Hcl Er 50 Mg Tabcr) 50 mg PO BID [facility] Stop: 02/21/21 20:59 Last Admin: 02/13/21 08:14 Dose: 50 mg Documented by: Resident Activity Tracking Resident Involvement: Resident Care Provided Care Provided: Adult Hospital Medicine
[2021-02-14] MEDS: HYDROmorphone INJ 2 MG/ML SYR/VIAL IV PRN ×8 (00:07→17:05)
[2021-02-14] MEDS: ACETAMINOPHEN 325 MG TAB PO SCH ×4 (00:07→17:56)
[2021-02-14] MEDS: ONDANSETRON INJ 2 MG/ML 2 ML VIAL IV SCH ×4 (00:07→17:24)
[2021-02-14] MEDS: D5W AND 1/2NSS 1,000 ML IV SCH (05:27)
[2021-02-14 05:39] LABS: Hematocrit (blood only) 24.7 % (37-47); Hemoglobin 8.5 g/dL (12.0-16.0); Mean Corpuscular Hemoglobin 35.1 pg (25-34); Mean Corpuscular Hgb Conc 34.4 g/dL (32-36); Mean Corpuscular Volume 102.1 fL (80-100); Mean Platelet Volume 9.7 fL (7.4-10.4); Nucleated RBC # (auto) 0.19 K/uL (0-0); Nucleated RBC % (auto) 4.6 %; Platelet Count 310 K/uL (130-400); RDW Coefficient of Variation 20.3 % (11.5-14.5); RDW Standard Deviation 75.6 fL (36.4-46.3); Red Blood Count 2.42 M/uL (4.2-5.4); White Blood Count 4.19 K/uL (4.8-10.8)
[2021-02-14 06:16] LABS: BUN Creatinine Ratio 10.5 (10-20); Blood Urea Nitrogen 5 mg/dl (7-18); Calcium 9.3 mg/dl (8.5-10.1); Carbon Dioxide 31 mmol/L (21-32); Chloride 104 mmol/L (98-107); Creatinine Clr Calc Pharmacy 175.7 ml/min; Est GFR (African American) > 150.0 ml/min; Est GFR (Non-African American) 135.6 ml/min; Glucose 95 mg/dl (70-99); Potassium 3.7 mmol/L (3.5-5.1); Sodium 137 mmol/L (136-145)
[2021-02-14 06:46] LABS: Anisocytosis Present; Basophils # (auto) 0.01 K/uL (0-0.2); Basophils % (auto) 0.2 %; Eosinophils # (auto) 0.09 K/uL (0-0.5); Eosinophils % (auto) 2.1 %; Immature Granulocytes # (auto) 0.01 K/uL (0.00-0.02); Immature Granulocytes % (auto) 0.2 %; Lymphocytes # (auto) 2.69 K/uL (1.2-3.4); Lymphocytes % (auto) 64.2 %; Monocytes # (auto) 0.14 K/uL (0.11-0.59); Monocytes % (auto) 3.3 %; Neutrophils # (auto) 1.25 K/uL (1.4-6.5); Polychromasia 1+; Sickle Cells 1+; Target Cells 1+
[2021-02-14] MEDS: ENOXAPARIN INJ 40 MG/0.4 ML SYR SQ SCH ×2 (08:08→08:18)
[2021-02-14] MEDS: DULoxetine HCL 20 MG CAP PO SCH (08:08)
[2021-02-14] MEDS: POLYETHYLENE (MIRALAX) 17 GM PACK PO SCH ×2 (08:08→14:36)
[2021-02-14] MEDS: FAMOTIDINE 20 MG TAB PO SCH (08:09)
[2021-02-14] MEDS: FLUTICASONE PROPIONATE NA SPR 16 GM BTL SCH (08:09)
[2021-02-14] MEDS: HYDROXYUREA 500 MG CAP PO SCH (08:10)
[2021-02-14] MEDS: FOLIC ACID 1 MG TAB PO SCH (08:10)
[2021-02-14] MEDS: SUCRALFATE 1 GM/10 ML UDC PO SCH ×3 (08:11→17:26)
[2021-02-14] MEDS: PANTOprazole 40 MG TAB PO SCH (08:11)
[2021-02-14] MEDS: TAPENTADOL HCL ER 50 MG TABCR PO SCH (08:12)
[2021-02-14] MEDS ORDERED: SODIUM CHLORIDE 0.9% 250 ML IV PRN (10:42)
--- NOTE | 2021-02-14 17:46 | Discharge Summary ---
Date of Service February 14, 2021 Admission HPI Per Admitting Provider 20-year-old female with a past medical history of suicidal ideation, severe sickle cell disease, depression, psychogenic nonepileptic seizures who presents to the emergency department for multiple days of shortness of breath and fever. She called her PCPs office earlier today describing her symptoms and was advised to go to the emergency department. She states that she has had a mild cough, fevers, chills since Sunday 01/28. She denies any production with the cough. She did not take anything to treat the fever. She states her highest fever was 38.5 Celsius. She does have some pain with coughing and taking a deep breath. She says that this feels sharper than her normal sickle cell associated chest pain. She attest to having worsening generalized body pain that often happens with her sickle cell crises. She has gotten both of her Covid vaccination in May 2020. Admission Exam Per Admitting Provider Physical Exam: Constitutional: ill, uncomfortable appearing Eyes: EOMI, pupils equal and reactive bilaterally, no scleral icterus Cardiac: RRR, no murmurs, gallops or rubs. Normal S1, S2 Pulm: CTA BL, no wheezes, rhonchi, crackles or rubs, moving air well throughout both lungs, Abd: soft, tender to palpation throughout abdomen but focused in RUQ and epigastric Extremities: 2+ peripheral pulses, no edema Neuro: no focal deficits, moving all 4 limbs, A&Ox3 Principal Diagnosis Sickle Cell Crisis, COVID Pneumonia Discharge Exam Constitutional average body habitus and cooperative Eyes PERRL, conjunctivae normal, anicteric sclerae Respiratory normal respiratory effort, lungs clear to auscultation Cardiovascular RRR, no murmur, no edema Heart Sounds: normal S1 and normal S2 Gastrointestinal (Abdomen) Inspection/Auscultation: abdomen normal to inspection; abdomen not distended Percussion/Palpation: + abdomen tender (diffusely) Skin no rashes, warm and dry Psychiatric Orientation: alert and oriented x 3 Discharge Data Allergies Allergy/AdvReac Type Severity Reaction Status Date / Time No Known Allergies Allergy Verified 01/31/21 17:33 Consultations 01/31/21 16:33 ED Decision to Admit Stat Ordered Studies 01/31/21 19:15 US liver Stat Hospital Course (1) COVID-19: 20-year-old female with past medical history of borderline personality di sorder, suicidal ideation, opioid-induced hyperalgesia, sickle cell disease, osteonecrosis of the hip admitted to the hospital for acute sickle cell crisis and COVID-19 infection. Sickle cell crisis complicated by opioid-induced hyperalgesia Acute crisis precipitated by Covid pneumonia. Started on IV pain medication Hydromorphone. Nucynta held, patient recieved 3U blood total. Feeling better upon discharge, patient eager to go home. Patient to follow with PCP in outpatient and repeat CBC. COVID-19 Vaccinated, >day 10 of illness w minimal pneumonia / respiratory sx, likely convalescent from Covid phase and management of pain/sickle cell as below. CRP elevated to 1.4, pro-Brian 0.16 on admission.. Chest x-ray on admission negative for acute chest or severe Covid pneumonia follow-up chest x-ray when she had worsening chest pain did not show any worsening Covid related findings or findings consistent with acute chest syndrome. No dyspnea, tachypnea today. Pulse ox greater than 90% on room air. DVT prophylaxis with 40 mg of Lovenox daily given higher risk of clotting with both Covid and sickle cell disease. Patient >10 days post onset symptoms, does not require further quarantine upon discharge. Abdominal pain/nausea/lightheadedness Patient with abdominal pain and some nausea intermittently. Given zofran, pe pcid, protonix. Compazine as needed breakthrough, fluids as needed Sickle cell disease Continue hydroxyurea 1 g p.o. twice daily. Continue 1 g folate daily (2) Avascular necrosis of bone of hip: (3) Nausea: (4) Hyperbilirubinemia: (5) Psychogenic nonepileptic seizure: (6) Borderline personality disorder: (7) Vaso-occlusive sickle cell crisis: (8) Opioid-induced hyperalgesia: Total Time Total Time Spent Total Time Spent (In Minutes): see attending attestation Discharge Plan Discharge Items Patient Disposition: Home - Self-Care Reason For Visit: FEVER,SICKLE CELL PAIN Discharge Diagnosis: Sickle Cell Crisis and COVID Activity: Resume your previous activity Non-emergency contact: Primary Care Provider Call non-emergency contact if: you have any medication questions, your symptoms worsen and you have a fever Follow-up/Referrals: Zamzam Bailey MD [Primary Care Provider] - Diet: Regular Addtl Attending Provider Instructions: You were admitted to the hospital for Sickle Cell Crisis and COVID. You were treated with pain control and blood transfusions. Please have your blood count checked with your PCP. A discharge summary will be sent to your primary care physician to ensure continuity of care. Please bring this discharge summary with you to your next office appointment so that your provider can review it at that time. Follow-up appointments: We have requested a follow-up appointment with your primary care physician within one week of discharge. Please call their office if you do not hear from them. Keep all your follow-up appointments as already scheduled. If you cannot make an appointment, notify your provider. Medications: Your medication list has been reviewed and reconciled upon discharge to ensure accuracy and continuity of care. An updated list of all your medications is included with your hospital discharge paperwork. Please review this list closely, and make note of any changes. Take your medications as instructed; do not skip a dose of your medicines. Make sure all of your doctors know every medicine you are taking (including [id number]-youlcrf medicines, vitamins, and supplements). Call your primary care provider before taking any new medicines (including [id number] medicines, vitamins, and supplements), because some of these may interact with your current medications, or may make your symptoms worse. Tell your primary care provider if you cannot afford your medications. CONTACT YOUR PRIMARY CARE PROVIDER if you experience any of the following: Fever, difficulty breathing Difficulty following your treatment plan, or difficulty taking medications CALL 911 OR GO TO THE EMERGENCY DEPARTMENT if you experience any of the following: Sudden, severe abdominal pain or nausea/vomiting Severe chest pain, or chest pain that radiates (moves) to your jaw or arm Sudden, severe shortness of breath or difficulty breathing Thank you for allowing us to participate in your care. Pending Studies at Discharge: No Stand-Alone Forms: My [employer], Smoking Cessation Medications and DC Order Prescriptions: Continued Narcan 4 mg/actuation spray,non-aerosol 1 spray intranasal .Q3 MINUTES PRN (Reason: OVERSEDATION) RF: 0 Nucynta 50 mg tablet 50 mg PO BID RF: 0 duloxetine 20 mg capsule,delayed release(DR/EC) 20 mg PO DAILY RF: 0 hydroxyurea 500 mg capsule 1,000 mg PO BID RF: 0 pantoprazole 40 mg tablet,delayed release (DR/EC) 40 mg PO DAILY RF: 0 folic acid 1 mg Tablet 2 mg PO DAILY RF: 0 Discharge Orders: Discharge Order (Routine); Ordered 02/14/21 Ordered By: Jessica Aragon/Other Patient Handouts: ED Sickle Cell Pain Crisis Admission Data Admit Date/Time: 01/31/21 17:31 Attending Provider: Yeison Pond Admit Provider: Zamzam Bailey Primary Care Provider: Zamzam Bailey Other Providers: Gaston Flynn Other Interventions: Discharge Summary Assessment (RN) Last Done: 02/14/21 18:30 Supervising Physician Co-Signing Physician Notes I also saw the patient with the resident physician and confirmed amaro portions of the history and physical examination. Agree with impression and plan as noted in the resident documentation. On the day of discharge, she was feeling better in terms of the abdominal and chest wall pain, but still fatigued. She denies any shortness of breath. She remains with excellent oxygen saturations on room air. We discussed the options of discharge versus a transfusion of red blood cells prior to discharge. She is about 2 below her baseline hemoglobin and she is symptomatic with fatigue. Her hemoglobin has been downtrending, very slight drop, essentially stable compared to yesterday, but still below her baseline. 109/70, 76, 17, 36.9, 90% on room air Alert and oriented. No acute distress appreciated. Appropriate affect Heart regular rate and rhythm. Lungs are clear with nonlabored respirations Abdomen is soft; she describes pain, but no tenderness upon exam DATA Hemoglobin 8.4, down slightly from 8.6 yesterday. Posttransfusion hemoglobin is 9.7 just prior to discharge A/P In summary, pleasant 20-year-old female with known history of sickle cell presented with COVID-19 and sickle cell crisis. Fortunately, she was vaccinated and her COVID-19 symptoms are mild. Her hospitalization was more for the sickle cell crisis than COVID-19. Her crisis has resolved, but she remains significantly fatigued secondary, in part, to her anemia. I suspect also con tributing to her fatigue is the prolonged hospitalization and some lingering effects of COVID-19. Agree with transfusion of 1 unit packed red blood cells today; she felt better post transfusion and desired discharge. This is very reasonable. Discussed signs and symptoms for which to reach out to her out patient physician and/or return to the emergency department. Additional per resident documentation Resident Activity Tracking Resident Involvement: Resident Care Provided Care Provided: Adult [facility] Medicine
[2021-02-14 19:07] LABS: Hematocrit (blood only) 28.1 % (37-47); Hemoglobin 9.7 g/dL (12.0-16.0); Mean Corpuscular Hemoglobin 33.4 pg (25-34); Mean Corpuscular Hgb Conc 34.5 g/dL (32-36); Mean Corpuscular Volume 96.9 fL (80-100); Mean Platelet Volume 9.5 fL (7.4-10.4); Nucleated RBC # (auto) 0.13 K/uL (0-0); Nucleated RBC % (auto) 2.5 %; Platelet Count 297 K/uL (130-400); RDW Coefficient of Variation 20.7 % (11.5-14.5); RDW Standard Deviation 71.5 fL (36.4-46.3); White Blood Count 5.24 K/uL (4.8-10.8)
[2021-02-14 19:09] LABS: Basophils # (auto) 0.01 K/uL (0-0.2); Basophils % (auto) 0.2 %; Eosinophils # (auto) 0.08 K/uL (0-0.5); Eosinophils % (auto) 1.5 %; Immature Granulocytes # (auto) 0.01 K/uL (0.00-0.02); Immature Granulocytes % (auto) 0.2 %; Lymphocytes % (auto) 40.1 %; Monocytes # (auto) 0.26 K/uL (0.11-0.59); Neutrophils # (auto) 2.78 K/uL (1.4-6.5); Polychromasia 1+; Sickle Cells 1+; Stomatocytes 1+; Target Cells 1+
== END 2021-02-14 19:10 | disposition home or self-care (01) | DRG 177 ==
LOC: ED 12:57 → SUATTDRO 17:31 → EDINP 17:31 → 2W 20:28 → 3W 02-08 12:58

== ENCOUNTER 2021-05-08 12:10 | Inpatient (IN) ==
[2021-05-08] MEDS ORDERED: HYDROmorphone INJ 1 MG/ML SYRINGE IV STA ×2 (12:58→15:24)
[2021-05-08] MEDS ORDERED: SODIUM CHLORIDE 0.9% 1000ML 1,000 ML IV ONE (12:58)
[2021-05-08] MEDS ORDERED: MoRPHine SULFATE 10 MG/ML CARP/VIAL IV STA (12:58)
[2021-05-08] MEDS ORDERED: ACETAMINOPHEN 1000 MG/100 ML IV IV STA (12:58)
--- NOTE | 2021-05-08 13:10 | Emergency Department Note ---
Impression & Plan Generalized pain, Sickle cell crisis, Elevated bilirubin, Anemia ED Provider Note NAME: ADÁN PEOPLES AGE: 20 SEX: F : 2000 ARRIVES VIA: Walk-In INFORMANT: [Patient] ED PROVIDER(S): [Richard Joiner MD] CHIEF COMPLAINT: Pain HISTORY OF PRESENT ILLNESS: The patient is a 20-year-old female who presents to the ER with what she thinks is a sickle cell crisis. The patient had some mild discomfort throughout her body for the last couple days but then this morning, several hours ago, woke up in severe pain everywhere. She thinks it is from the change in the weather. There has been no chest pain or shortness of breath. No fever or chills. No cough or cold or congestion. Typically, the patient receives IV narcotics for her painful crises. She tried some Nucynta before arrival without relief. The pain is a 10/10. The patient was hospitalized several months ago for a painful crisis at our facility. REVIEW OF SYSTEMS: See HPI for pertinent positives and negatives. A total of ten systems were reviewed and were otherwise negative. PMHx/PSHx: See Below SOCIAL HISTORY: See Below. PHYSICAL EXAM: GENERAL: Patient is in mild distress from pain. HEENT: No acute trauma, normocephalic atraumatic, mucous membranes moist, no nasal congestion, no scleral icterus. NECK: No stridor, no adenopathy, no meningismus, trachea is midline. LUNGS: Clear to auscultation bilaterally, no wheeze, no rhonchi, breath sounds equal. HEART: Without murmurs gallops or rubs, regular rate and rhythm. ABDOMEN: Soft, nontender, bowel sounds positive, no hernias, no peritonitis. EXTREMITIES: No cyanosis or edema, full range of motion of all the joints without pain or difficulty, no signs for acute trauma. NEUROLOGIC: Oriented x 3, no acute motor or sensory deficits, no focal weakness. SKIN: No rash, no jaundice, no diaphoresis. DIFFERENTIAL DIAGNOSIS: Sickle cell crisis, dehydration, pneumonia, UTI, , electrolyte imbalance, anemia, among others. EMERGENCY DEPARTMENT COURSE/PROCEDURES: MEDICAL DECISION MAKING: There is no leukocytosis. The patient is anemic but this appears about baseline when looking back at previous testing. There was a normal platelet count. Reticulocyte count was elevated and around her baseline value. No renal failure or significant electrolyte abnormality. Bilirubin was high at 4, this is higher than she has been running. The remaining liver enzymes were unremarkable. testing was negative. Urinalysis did not show infection. Covid testing was negative. Chest x-ray did not show CHF or pneumonia. The patient presents with what she describes as a sickle cell crisis. She received IV saline, 1 L. She was given IV morphine, IV Dilaudid. A second dose of IV Dilaudid was given. She received IV Tylenol, IV Toradol. The patient is still having pain. She has been here for several hours, she is not all that improved, she has required hospitalization in the past for her sickle cell crises. I did speak with the patient at length, I talked to case resolution specialist. The on-call hospitalist was consulted. In short, her history and her work-up are consistent with a sickle cell crisis as the cause for her complaints. Past Med/Surg History Medical History Acute leg pain Borderline personality disorder Chest pain Chronic pain Depression with suicidal ideation Murmur, cardiac Nausea Overdose Overdose Person under investigation for COVID-19 Pneumonia Pseudoseizures Seizure-like activity Sickle cell anemia Sickle cell crisis Suicidal ideation Suicide gesture Surgical History No pertinent past surgical history Family History Mother Hypertension Father Ulcer Other Family history non-contributory Social History Smoking Status: Never smoker Tobacco Type: Cigarettes Second Hand Exposure: Yes; Hx Alcohol Use: Yes Alcohol type: other Hx Substance Use: No Preferred Language: Cambodian Communication Ability: Effective Mill Washer Required: No Beliefs That Will Affect Care: None marital status: Single Current Living Situation: Alone Current Living Situation Comment: Pt states she lives with roommates 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 current occupation: [employer] major Feels Safe at Home: Yes Assistive Devices: None Allergies Allergies Allergy/AdvReac Type Severity Reaction Status Date / Time No Known Allergies Allergy Verified 05/08/21 15:02 Home Meds Home Medications Medication Instructions Recorded Confirmed naloxone 4 mg/actuation nasal 1 spray INTRANASAL .Q3 MINUTES PRN 09/04/20 05/08/21 spray (Narcan) tapentadol 50 mg tablet (Nucynta) 50 mg PO BID 01/16/21 05/08/21 duloxetine 20 mg capsule,delayed 20 mg PO DAILY 01/31/21 05/08/21 release folic acid 1 mg tablet 2 mg PO DAILY 01/31/21 05/08/21 hydroxyurea 500 mg capsule 1,000 mg PO BID 01/31/21 05/08/21 pantoprazole 40 mg tablet,delayed 40 mg PO DAILY 01/31/21 05/08/21 release Results & Data (ED) Vital Signs Vital Signs - 24 hr 05/08/21 12:12 05/08/21 14:11 05/08/21 18:00 Temperature 36.4 C L 36.9 C Temperature Source Temporal Artery Scan Oral Pulse Rate 96 H Pulse Rate [Apical] 76 67 Pulse Rhythm Regular Pulse Rhythm [Apical] Regular Respiratory Rate 22 17 16 Respiratory Effort / Characteristics Non-Labored Spontaneous Non-Labored Respiratory Depth Normal Normal Respiratory Pattern Regular Blood Pressure 126/92 Blood Pressure [Left Arm] 105/71 100/62 Blood Pressure Mean 103 Blood Pressure Mean [Left Arm] 82 74 Pulse Oximetry 94 97 97 Oxygen Delivery Method Room Air Room Air Nasal Cannula Oxygen Flow Rate 2 Sepsis Recent Fever Within 48 Hours No Sepsis New/Unexplained Change in Mental Status No Sepsis Action Taken by Nursing No Action Required Home Medications Current Medication List: was personally reviewed by me Laboratory Data Attestation: I reviewed the patient's lab results. Result diagrams: 05/08/21 13:39 05/08/21 14:56 Lab Results 05/08/21 05/08/21 05/08/21 Range/Units 13:39 13:39 13:39 WBC 8.90 (4.8-10.8) K/uL RBC 2.56 L (4.2-5.4) M/uL Hgb 8.7 L (12.0-16.0) g/dL Hct 23.7 L (37-47) % MCV 92.6 (80-100) fL MCH 34.0 (25-34) pg MCHC 36.7 H (32-36) g/dL RDW Std Deviation 74.2 H (36.4-46.3) fL RDW Coeff of Nando 22.5 H (11.5-14.5) % Plt Count 370 (130-400) K/uL MPV 9.4 (7.4-10.4) fL Immature Gran % (Auto) 1.7 % Neut % (Auto) 62.1 % Lymph % (Auto) 27.1 % [place] % (Auto) 7.2 % Eos % (Auto) 1.5 % Baso % (Auto) 0.4 % Reticulocyte % (Auto) 17.6 H (0.5-2.0) % Neut # (Auto) 5.53 (1.4-6.5) K/uL Lymph # (Auto) 2.41 (1.2-3.4) K/uL [place] # (Auto) 0.64 H (0.11-0.59) K/uL Eos # (Auto) 0.13 (0-0.5) K/uL Baso # (Auto) 0.04 (0-0.2) K/uL Reticulocyte # 0.45 H (0.02-0.10) 10^6/uL Immature Gran # (Auto) 0.15 H (0.00-0.02) K/uL Absolute Nucleated RBC 0.13 H (0-0) K/uL Nucleated RBC % (auto) 1.4 % Polychromasia 1+ Poikilocytosis Present Anisocytosis Present Sickle Cells 1+ Target Cells 1+ Sodium 140 (136-145) mmol/L Potassium TNP Chloride 106 (98-107) mmol/L Carbon Dioxide 26 (21-32) mmol/L Anion Gap 8 (3-11) BUN 4 L (6-23) mg/dl Creatinine 0.46 L (0.6-1.2) mg/dl Est Cr Clr Drug Dosing Not Reportable Est GFR ( Amer) > 150.0 ml/min Est GFR (Non-Af Amer) 141.2 ml/min BUN/Creatinine Ratio 8.7 L (10-20) Glucose 86 (70-99(Fasting)) mg/dl Calcium 9.8 (8.5-10.1) mg/dl Total Bilirubin 4.0 H (0.2-1.0) mg/dl AST TNP ALT 13 (7-52) U/L Alkaline Phosphatase 53 (34-104) U/L Total Protein 7.9 (6.0-8.3) gm/dl Albumin 4.6 (3.4-5.0) gm/dl Globulin 3.3 (2.5-4.0) gm/dl Albumin/Globulin Ratio 1.4 (0.9-2) HCG, Qual Cancelled Urine Color Urine Appearance (Clear) Urine pH (4.5-7.5) Ur Specific [place] (1.000-1.030) Urine Protein (Negative) Urine Glucose (UA) (Negative) Urine Ketones (Negative) Urine Blood (Negative) Urine Nitrite (Negative) Urine Bilirubin (Negative) Urine Urobilinogen (Negative) Ur Leukocyte Esterase (Negative) SARS-CoV-2, RNA, NAAT (NEGATIVE) 05/08/21 05/08/21 05/08/21 Range/Units 14:56 14:56 16:24 WBC (4.8-10.8) K/uL RBC (4.2-5.4) M/uL Hgb (12.0-16.0) g/dL Hct (37-47) % MCV (80-100) fL MCH (25-34) pg MCHC (32-36) g/dL RDW Std Deviation (36.4-46.3) fL RDW Coeff of Nando (11.5-14.5) % Plt Count (130-400) K/uL MPV (7.4-10.4) fL Immature Gran % (Auto) % Neut % (Auto) % Lymph % (Auto) % [place] % (Auto) % Eos % (Auto) % Baso % (Auto) % Reticulocyte % (Auto) (0.5-2.0) % Neut # (Auto) (1.4-6.5) K/uL Lymph # (Auto) (1.2-3.4) K/uL [place] # (Auto) (0.11-0.59) K/uL Eos # (Auto) (0-0.5) K/uL Baso # (Auto) (0-0.2) K/uL Reticulocyte # (0.02-0.10) 10^6/uL Immature Gran # (Auto) (0.00-0.02) K/uL Absolute Nucleated RBC (0-0) K/uL Nucleated RBC % (auto) % Polychromasia Poikilocytosis Anisocytosis Sickle Cells Target Cells Sodium (136-145) mmol/L Potassium 3.5 Chloride (98-107) mmol/L Carbon Dioxide (21-32) mmol/L Anion Gap (3-11) BUN (6-23) mg/dl Creatinine (0.6-1.2) mg/dl Est Cr Clr Drug Dosing Est GFR ( Amer) ml/min Est GFR (Non-Af Amer) ml/min BUN/Creatinine Ratio (10-20) Glucose (70-99(Fasting)) mg/dl Calcium (8.5-10.1) mg/dl Total Bilirubin (0.2-1.0) mg/dl AST 25 ALT (7-52) U/L Alkaline Phosphatase (34-104) U/L Total Protein (6.0-8.3) gm/dl Albumin (3.4-5.0) gm/dl Globulin (2.5-4.0) gm/dl Albumin/Globulin Ratio (0.9-2) HCG, Qual Negative Urine Color [place] Urine Appearance Clear (Clear) Urine pH 7.0 (4.5-7.5) Ur Specific [place] 1.015 (1.000-1.030) Urine Protein Negative (Negative) Urine Glucose (UA) Negative (Negative) Urine Ketones Negative (Negative) Urine Blood Negative (Negative) Urine Nitrite Negative (Negative) Urine Bilirubin Negative (Negative) Urine Urobilinogen Negative (Negative) Ur Leukocyte Esterase Negative (Negative) SARS-CoV-2, RNA, NAAT (NEGATIVE) 05/08/21 Range/Units 17:05 WBC (4.8-10.8) K/uL RBC (4.2-5.4) M/uL Hgb (12.0-16.0) g/dL Hct (37-47) % MCV (80-100) fL MCH (25-34) pg MCHC (32-36) g/dL RDW Std Deviation (36.4-46.3) fL RDW Coeff of Nando (11.5-14.5) % Plt Count (130-400) K/uL MPV (7.4-10.4) fL Immature Gran % (Auto) % Neut % (Auto) % Lymph % (Auto) % [place] % (Auto) % Eos % (Auto) % Baso % (Auto) % Reticulocyte % (Auto) (0.5-2.0) % Neut # (Auto) (1.4-6.5) K/uL Lymph # (Auto) (1.2-3.4) K/uL [place] # (Auto) (0.11-0.59) K/uL Eos # (Auto) (0-0.5) K/uL Baso # (Auto) (0-0.2) K/uL Reticulocyte # (0.02-0.10) 10^6/uL Immature Gran # (Auto) (0.00-0.02) K/uL Absolute Nucleated RBC (0-0) K/uL Nucleated RBC % (auto) % Polychromasia Poikilocytosis Anisocytosis Sickle Cells Target Cells Sodium (136-145) mmol/L Potassium Chloride (98-107) mmol/L Carbon Dioxide (21-32) mmol/L Anion Gap (3-11) BUN (6-23) mg/dl Creatinine (0.6-1.2) mg/dl Est Cr Clr Drug Dosing Est GFR ( Amer) ml/min Est GFR (Non-Af Amer) ml/min BUN/Creatinine Ratio (10-20) Glucose (70-99(Fasting)) mg/dl Calcium (8.5-10.1) mg/dl Total Bilirubin (0.2-1.0) mg/dl AST ALT (7-52) U/L Alkaline Phosphatase (34-104) U/L Total Protein (6.0-8.3) gm/dl Albumin (3.4-5.0) gm/dl Globulin (2.5-4.0) gm/dl Albumin/Globulin Ratio (0.9-2) HCG, Qual Urine Color Urine Appearance (Clear) Urine pH (4.5-7.5) Ur Specific [place] (1.000-1.030) Urine Protein (Negative) Urine Glucose (UA) (Negative) Urine Ketones (Negative) Urine Blood (Negative) Urine Nitrite (Negative) Urine Bilirubin (Negative) Urine Urobilinogen (Negative) Ur Leukocyte Esterase (Negative) SARS-CoV-2, RNA, NAAT NEGATIVE (NEGATIVE) Administered Medications Discontinued Medications Acetaminophen (Acetaminophen 1000 Mg/100 Ml Iv) 1,000 mg IV NOW STA Stop: 05/08/21 12:59 Last Admin: 05/08/21 13:34 Dose: 1,000 mg Documented by: [id number] Hydromorphone HCl (Hydromorphone Inj 1 Mg/Ml Syringe) 1 mg IV NOW STA Stop: 05/08/21 12:59 Last Admin: 05/08/21 13:34 Dose: 1 mg Documented by: [id number] Hydromorphone HCl (Hydromorphone Inj 1 Mg/Ml Syringe) 1 mg IV NOW STA Stop: 05/08/21 15:25 Last Admin: 05/08/21 15:36 Dose: 1 mg Documented by: [id number] Hydromorphone HCl (Hydromorphone Inj 0.5 Mg/0.5 Ml Syr) Confirm Administered Dose 0.5 mg .ROUTE .STK-MED ONE Stop: 05/08/21 15:32 Last Admin: 05/08/21 15:36 Dose: Not Given Documented by: [id number] Sodium Chloride (Nss 1000ml) 1,000 mls @ 999 mls/hr IV .Q1H1M ONE Stop: 05/08/21 13:58 Last Infusion: 05/08/21 14:53 Dose: 0 mls/hr Documented by: [id number] Admin: 05/08/21 13:34 Dose: 999 mls/hr Documented by: [id number] Ketorolac Tromethamine (Ketorolac Tromethamine 15 Mg/Ml Vial) 10 mg IV NOW ONE Stop: 05/08/21 14:38 Last Admin: 05/08/21 14:49 Dose: 10 mg Documented by: [id number] Morphine Sulfate (Morphine Sulfate 10 Mg/Ml Carp/Vial) 6 mg IV NOW STA Stop: 05/08/21 12:59 Last Admin: 05/08/21 13:34 Dose: 6 mg Documented by: [id number] Ondansetron HCl (Ondansetron Inj 2 Mg/Ml 2 Ml Vial) 4 mg IV NOW STA Stop: 05/08/21 14:28 Last Admin: 05/08/21 14:49 Dose: 4 mg Documented by: [id number] Imaging Data Radiologist's Impression: Chest X-Ray 05/08/21 12:58 XR chest 1V portable HISTORY: Atypical chest pain COMPARISON: None. FINDINGS: The lungs are clear. Cardiac silhouette is normal in size. No pleural effusions. No pneumothorax. IMPRESSION: No acute process. ACT 112: Negative or not required by law. Electronically signed by: Cortes Fletcher M.D. 05/08/2021 2:16 PM Discharge Plan Visit Data Chief Complaint: Pain (Generalized) Stated Complaint: SICKLE CELL CRISIS, PAIN ED Provider: Richard Joiner Discharge Problem: Generalized pain, Sickle cell crisis, Elevated bilirubin, Anemia Patient Disposition: Admitted As Inpatient Condition: Fair Forms Stand Alone Forms: [facility] Prescriptions Prescriptions: No Action naloxone [Narcan] 4 mg/actuation spray,non-aerosol 1 spray intranasal .Q3 MINUTES PRN (Reason: OVERSEDATION) RF: 0 Nucynta 50 mg tablet 50 mg PO BID RF: 0 duloxetine 20 mg capsule,delayed release(DR/EC) 20 mg PO DAILY RF: 0 hydroxyurea 500 mg capsule 1,000 mg PO BID RF: 0 pantoprazole 40 mg tablet,delayed release (DR/EC) 40 mg PO DAILY RF: 0 folic acid 1 mg Tablet 2 mg PO DAILY RF: 0 Referrals [facility]errals: [facility] [Primary Care Provider] -
[2021-05-08 13:51] LABS: Basophils # (auto) 0.04 K/uL (0-0.2); Basophils % (auto) 0.4 %; Eosinophils # (auto) 0.13 K/uL (0-0.5); Eosinophils % (auto) 1.5 %; Hematocrit (blood only) 23.7 % (37-47); Hemoglobin 8.7 g/dL (12.0-16.0); Immature Granulocytes # (auto) 0.15 K/uL (0.00-0.02); Immature Granulocytes % (auto) 1.7 %; Lymphocytes # (auto) 2.41 K/uL (1.2-3.4); Lymphocytes % (auto) 27.1 %; Mean Corpuscular Hgb Conc 36.7 g/dL (32-36); Mean Corpuscular Volume 92.6 fL (80-100); Mean Platelet Volume 9.4 fL (7.4-10.4); Monocytes # (auto) 0.64 K/uL (0.11-0.59); Monocytes % (auto) 7.2 %; Neutrophils # (auto) 5.53 K/uL (1.4-6.5); Neutrophils % (auto) 62.1 %; Nucleated RBC # (auto) 0.13 K/uL (0-0); Nucleated RBC % (auto) 1.4 %; Platelet Count 370 K/uL (130-400); RDW Coefficient of Variation 22.5 % (11.5-14.5); RDW Standard Deviation 74.2 fL (36.4-46.3); Red Blood Count 2.56 M/uL (4.2-5.4)
[2021-05-08 14:03] LABS: Reticulocyte % 17.6 % (0.5-2.0); Reticulocytes # 0.45 10^6/uL (0.02-0.10)
[2021-05-08 14:09] LABS: Anisocytosis Present; Poikilocytosis Present; Polychromasia 1+; Sickle Cells 1+; Target Cells 1+
--- NOTE | 2021-05-08 14:18 | XRay Report ---
XR chest 1V portable HISTORY: Atypical chest pain COMPARISON: None. FINDINGS: The lungs are clear. Cardiac silhouette is normal in size. No pleural effusions. No pneumot horax. IMPRESSION: No acute process. ACT 112: Negative or not required by law. Electronically signed by: Cortes Fletcher M.D. 05/08/2021 2:16 PM
[2021-05-08] MEDS ORDERED: ONDANSETRON INJ 2 MG/ML 2 ML VIAL IV STA (14:27)
[2021-05-08 14:33] LABS: Alanine Aminotransferase 13 U/L (7-52); Albumin Globulin Ratio 1.4 (0.9-2); Albumin Level 4.6 gm/dl (3.4-5.0); Alkaline Phosphatase 53 U/L (34-104); Anion Gap 8 (3-11); BUN Creatinine Ratio 8.7 (10-20); Blood Urea Nitrogen 4 mg/dl (6-23); Calcium 9.8 mg/dl (8.5-10.1); Carbon Dioxide 26 mmol/L (21-32); Chloride 106 mmol/L (98-107); Est GFR (African American) > 150.0 ml/min; Est GFR (Non-African American) 141.2 ml/min; Globulin 3.3 gm/dl (2.5-4.0); Glucose 86 mg/dl (70-99(Fasting)); Sodium 140 mmol/L (136-145); Total Protein 7.9 gm/dl (6.0-8.3)
[2021-05-08] MEDS ORDERED: KETOROLAC TROMETHAMINE 15 MG/ML VIAL IV ONE (14:37)
[2021-05-08] MEDS ORDERED: HYDROmorphone INJ 0.5 MG/0.5 ML SYR ONE (15:31)
[2021-05-08 15:32] LABS: Potassium 3.5 mmol/L (3.5-5.1)
[2021-05-08 16:25] LABS: Pregnancy Test, Serum Negative (Negative)
[2021-05-08 17:13] LABS: Appearance Urine Clear (Clear); Bilirubin Urine Negative (Negative); Blood Urine Negative (Negative); Color Urine Orange; Glucose Urine UA Negative (Negative); Ketones Urine Negative (Negative); Leukocyte Esterase Urine Negative (Negative); Nitrite Urine Negative (Negative); Protein Urine Negative (Negative); Specific Gravity Urine 1.015 (1.000-1.030); Urobilinogen Urine Negative (Negative)
--- NOTE | 2021-05-08 18:31 | History & Physical Report ---
Date of Service May 08, 2021 Assessment & Plan (1) Sickle cell crisis: Plan: Sickle cell crisis: - Hgb stable in high 8s since 11/28, currently at 8.7. - Type and cross and hold 1 unit of packed red blood cells - We will discuss with hematology tomorrow - half-normal saline with D5 at 125 cc/h - Graduated pain scale as follows: Toradol every 6 hour for mild pain, Dilaudid 0.25 mg for moderate pain, Dilaudid 0.5 mg for severe pain. Naloxone available. - Hold Nucynta - Continue Hydroxyurea 1000mg PO BID Nasal congestion: - Viral versus allergic etiology - Start Flonase daily - Patient is covid vaccinated - Continue to monitor Depression/borderline personality disorder - continue duloxetine GERD (gastroesophageal reflux disease): - continue Protonix 40mg PO daily Psychogenic nonepileptic seizure: - Usually occurs with stressful events - Continue reassurance, anxiety management, pain control Hyperbilirubinemia: - Total hemoglobin of 4.0 on admission likely due to current sickle cell crisis with red blood cell lysis - Has chronically elevated bilirubin - No RUQ symptoms - Continue to monitor Diet: Regular DVT prophylaxis: Lovenox Disposition: Admit to [facility] CODE STATUS: Full code (2) Hyperbilirubinemia: (3) GERD (gastroesophageal reflux disease): (4) Depression: History of Present Illness Chief Complaint: Pain crisis Primary Care Provider: [facility] 20-year-old female with past medical history of sickle cell disease, chronic pain, Sleep disturbance, GERD, Anxiety, pseudoseizures, Depression, and Borderline personality disorder. Patient comes to the hospital today for complaints of increasing pain associated with her sickle cell disease since this morning The patient endorses that her pain has gotten worse over the past 12 hours. She feels her pain is diffuse in nature and is nonfocal. Patient reports that prior to coming to the ED this morning she attempted taking 2 of her Nucynta to improve her pain but only had a 10% improvement. Patient reports she had for the ED after and having minimal response. Additionally patient reports that over the past 2 weeks she has been having congestion, runny nose, and sinus pressure. Patient feels that her current sickle cell crisis is due to the weather changing. Denies any increase in marijuana use or any alcohol use. In the ED the patient had routine labs performed to include retic panel and routine CXR. She was given IV morphine 14mg total for her pain and 1L crystalloid therapy as well as dose of Toradol in the ED. Her labs revealed HGB level of 8.7 RDW 74.2 and retic of 0.45. Due to her pain and increase in her reticulocyte count the hospitalist service was consulted for admission. Patient will be admitted for sickle crisis, will continue IVF resuscitation and continue her pain regimen with opioids as needed. Patient currently denies any shortness of breath but does report some chest discomfort. Otherwise her last menstrual cycle was 2 weeks ago. Patient is not having any UTI symptoms including pain with urination, increased frequency, or flank pain. Patient has no other complaints at this time. Patient has received her COVID vaccine and her COVID test on admission is: NEGATIVE Allergies Allergy/AdvReac Type Severity Reaction Status Date / Time No Known Allergies Allergy Verified 05/08/21 15:02 Home Medications Medication Instructions Recorded Confirmed Type naloxone 4 mg/actuation nasal 1 spray INTRANASAL .Q3 MINUTES PRN 09/04/20 05/08/21 History spray (Narcan) tapentadol 50 mg tablet (Nucynta) 50 mg PO BID 01/16/21 05/08/21 History duloxetine 20 mg capsule,delayed 20 mg PO DAILY 01/31/21 05/08/21 History release folic acid 1 mg tablet 2 mg PO DAILY 01/31/21 05/08/21 History hydroxyurea 500 mg capsule 1,000 mg PO BID 01/31/21 05/08/21 History pantoprazole 40 mg tablet,delayed 40 mg PO DAILY 01/31/21 05/08/21 History release Past Med/Surg History Medical History Acute leg pain Borderline personality disorder Chest pain Chronic pain Depression with suicidal ideation Murmur, cardiac Nausea Overdose Overdose Person under investigation for COVID-19 Pneumonia Pseudoseizures Seizure-like activity Sickle cell anemia Sickle cell crisis Suicidal ideation Suicide gesture Surgical History No pertinent past surgical history Family History Mother Hypertension Father Ulcer Other Family history non-contributory Social History Smoking Status: Never smoker Tobacco Type: Cigarettes Second Hand Exposure: Yes; Hx Alcohol Use: Yes Alcohol type: other Hx Substance Use: No Preferred Language: Guyanese Communication Ability: Effective Scada Operator Required: No Beliefs That Will Affect Care: None marital status: Single Current Living Situation: Alone Current Living Situation Comment: Pt states she lives with roommates 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 current occupation: [employer] major Other Information That Helps Us Care for You: No Feels Safe at Home: Yes Safety Concerns: Feels Safe At This Time Assistive Devices: None Review of Systems Review of Systems: All systems reviewed & are unremarkable except as noted in HPI & below Physical Exam Constitutional: WD/WN, vitals as above Eyes: PERRL, conjunctivae normal, anicteric sclerae Neck: trachea midline, no thyromegaly Respiratory: normal respiratory effort, lungs clear to auscultation Cardiovascular: RRR, no murmur, no edema Gastrointestinal (Abdomen): Inspection/Auscultation: abdomen normal to inspection and normal bowel sounds Percussion/Palpation: + abdomen tender and abdomen soft Musculoskeletal: Head/Neck/Chest: normocephalic and head atraumatic Skin: no rashes, warm and dry Neurologic: moves all extremities Psychiatric: A+Ox3, euthymic affect Lymphatic: no cervical lymphadenopathy Results & Data Results & Data ([facility]) Vital Signs (Past 12 Hours) Vital Signs Temp Pulse Pulse Resp BP BP Pulse Ox 05/08/21 14:11 76 17 105/71 97 05/08/21 12:12 36.4 C L 96 H 22 126/92 94 Supervising Physician Co-Signing Physician Notes Attending attestation Pt seen and examined in concert with Dr. Alas. In agreement with the documented findings as noted in the resident documentation with any exceptions or additions as noted here. Acute diffuse pain similar to previous SCD flares requiring admission without significant concern for ACS. Likely incited by increased stress, seasonal change, decreased sleep On examination, S1/S2 nl RRR no MCG. CTAB. Abd NT/ND BS+ve SCD w/o ACS - transfuse at 09/10 - nearly there by HCT, will repeat CBC in AM and consider transfusion if indicated. Pain control as noted. Continue hydroxyurea. IVF Else see resident documentation as noted. (1) GERD (gastroesophageal reflux disease) Esophagitis presence: esophagitis presence not specified Qualified Code(s): K21.9 - Gastro-esophageal reflux disease without esophagitis
[2021-05-08] MEDS ORDERED: NALOXONE NASAL SPRAY 4 MG ER HOMEPACK PRN (21:06)
[2021-05-08] MEDS ORDERED: SODIUM CHLORIDE 0.9% 250 ML IV PRN (21:06)
[2021-05-08] MEDS ORDERED: NALOXONE HCL 0.4 MG/1 ML VIAL/CARP IV PRN (21:21)
[2021-05-08] MEDS: HYDROmorphone INJ 0.5 MG/0.5 ML SYR IV PRN (21:23)
[2021-05-08] MEDS: HYDROXYUREA 500 MG CAP PO SCH (22:37)
[2021-05-08] MEDS: ACETAMINOPHEN 500 MG TAB PO SCH (22:37)
[2021-05-08] MEDS: D5W AND 1/2NSS 1,000 ML IV SCH (22:37)
[2021-05-08] MEDS: ENOXAPARIN INJ 40 MG/0.4 ML SYR SQ SCH (22:38)
[2021-05-09] MEDS: HYDROmorphone INJ 0.5 MG/0.5 ML SYR IV PRN ×7 (00:45→21:05)
[2021-05-09] MEDS: ACETAMINOPHEN 500 MG TAB PO SCH ×6 (02:48→21:59)
[2021-05-09] MEDS: D5W AND 1/2NSS 1,000 ML IV SCH ×2 (05:30→12:37)
[2021-05-09 06:41] LABS: Hematocrit (blood only) 20.6 % (37-47); Hemoglobin 7.3 g/dL (12.0-16.0); Mean Corpuscular Hemoglobin 32.7 pg (25-34); Mean Corpuscular Hgb Conc 35.4 g/dL (32-36); Mean Corpuscular Volume 92.4 fL (80-100); Mean Platelet Volume 9.2 fL (7.4-10.4); Nucleated RBC # (auto) 0.11 K/uL (0-0); Nucleated RBC % (auto) 1.2 %; Platelet Count 320 K/uL (130-400); RDW Standard Deviation 72.4 fL (36.4-46.3); Red Blood Count 2.23 M/uL (4.2-5.4); White Blood Count 9.36 K/uL (4.8-10.8)
[2021-05-09 06:49] LABS: Alanine Aminotransferase 10 U/L (7-52); Albumin Globulin Ratio 1.4 (0.9-2); Albumin Level 3.8 gm/dl (3.4-5.0); Alkaline Phosphatase 42 U/L (34-104); Anion Gap 5 (3-11); Aspartate Aminotransferase 21 U/L (13-39); BUN Creatinine Ratio 7.7 (10-20); Bilirubin,Total 2.5 mg/dl (0.2-1.0); Blood Urea Nitrogen 3 mg/dl (6-23); Calcium 8.7 mg/dl (8.5-10.1); Carbon Dioxide 27 mmol/L (21-32); Chloride 104 mmol/L (98-107); Creatinine Clr Calc Pharmacy 211.8 ml/min; Est GFR (African American) > 150.0 ml/min; Est GFR (Non-African American) 149.1 ml/min; Globulin 2.7 gm/dl (2.5-4.0); Glucose 104 mg/dl (70-99(Fasting)); Potassium 3.1 mmol/L (3.5-5.1); Sodium 136 mmol/L (136-145); Total Protein 6.5 gm/dl (6.0-8.3)
[2021-05-09 06:52] LABS: Anisocytosis Present; Basophils # (auto) 0.04 K/uL (0-0.2); Basophils % (auto) 0.4 %; Eosinophils # (auto) 0.21 K/uL (0-0.5); Eosinophils % (auto) 2.2 %; Immature Granulocytes # (auto) 0.04 K/uL (0.00-0.02); Immature Granulocytes % (auto) 0.4 %; Lymphocytes # (auto) 3.16 K/uL (1.2-3.4); Lymphocytes % (auto) 33.8 %; Monocytes # (auto) 0.79 K/uL (0.11-0.59); Monocytes % (auto) 8.4 %; Neutrophils # (auto) 5.12 K/uL (1.4-6.5); Neutrophils % (auto) 54.8 %; Polychromasia 1+; Sickle Cells 1+; Target Cells 1+
[2021-05-09] MEDS ORDERED: SODIUM CHLORIDE 0.9% 250 ML IV PRN ×2 (07:02→08:38)
--- NOTE | 2021-05-09 07:22 | Hospitalist Progress Note ---
Date of Service May 09, 2021 Assessment & Plan (1) Sickle cell crisis: Plan: Sickle cell crisis: - Hgb stable in high 8s since 11/28, currently at 7.3. - Transfuse 2 units of blood today. - Continue half-normal saline with D5 at 125 cc/h - Graduated pain scale as follows: Toradol every 6 hour for mild pain, Dilaudid 0.25 mg for moderate pain, Dilaudid 0.5 mg for severe pain. Naloxone available. - Hold Nucynta, will attempt to restart Nucynta tomorrow and space out as needed meds and attempt to transition her back to her outpatient pain regimen. - Continue Hydroxyurea 1000mg PO BID Nasal congestion: - Viral versus allergic etiology - Continue Flonase daily - Patient is covid vaccinated - Continue to monitor Depression/borderline personality disorder - continue duloxetine GERD (gastroesophageal reflux disease): - continue Protonix 40mg PO daily Psychogenic nonepileptic seizure: - Usually occurs with stressful events - Continue reassurance, anxiety management, pain control Hyperbilirubinemia, improving - Total hemoglobin of 4.0 on admission likely due to current sickle cell crisis with red blood cell lysis, downtrending - Has chronically elevated bilirubin - No RUQ symptoms - Continue to monitor Diet: Regular DVT prophylaxis: Lovenox Disposition: Admit to [facility] CODE STATUS: Full code (2) Hyperbilirubinemia: (3) GERD (gastroesophageal reflux disease): (4) Depression: Admission and Anticipated Discharge Date Admission Date: May 08, 2021 Supervising Physician Co-Signing Physician Notes Attending attestation Pt seen and examined in concert with Dr. Alas. In agreement with the documented findings as noted in the resident documentation with any exceptions or additions as noted here. Diffuse pain somewhat improved per patient, currently 5/10, with some deficit in the hour prior to next due for IV medication. On examination, S1/S2 nl RRR no MCG. CTAB. Abd NT/ND BS+ve SCD w/o ACS with worsening anemia - transfuse 2U PRBC (transfuse at 09/10) - Pain control as noted with likely resumption of PO (with possible IV breakthrough) in AM. Continue hydroxyurea. IVF Else see resident documentation as noted. Subjective Patient seen at bedside this morning. Patient reports that her pain control is actually pretty good with her pain scale being a 5 out of 10 this morning. Patient states that her pain control is good for the first 2 hours after receiving Dilaudid, however, she reports that the last hour her pain progressively increases and can get upwards to a 10 out of 10. Discussed having patient establish with Dr. Cueto to have a provider in the area that can help manage her sickle cell disease. Patient seem to be agreeable with seeing her in the outpatient setting. Otherwise patient is not having any shortness of breath, nausea, vomiting, or fevers. No other complaints at this time. Review of Systems Review of Systems: All systems reviewed & are unremarkable except as noted in HPI & below Physical Exam Constitutional: WD/WN, vitals as above Eyes: PERRL, conjunctivae normal, anicteric sclerae Neck: trachea midline, no thyromegaly Respiratory: normal respiratory effort, lungs clear to auscultation Cardiovascular: RRR, no murmur, no edema Gastrointestinal (Abdomen): Inspection/Auscultation: abdomen normal to inspection and normal bowel sounds Percussion/Palpation: + abdomen tender and abdomen soft Musculoskeletal: Head/Neck/Chest: normocephalic and head atraumatic Skin: no rashes, warm and dry Neurologic: moves all extremities Psychiatric: A+Ox3, euthymic affect Results & Data Results & Data ([facility]) Vital Signs (Past 12 Hours) Vital Signs Temp Pulse Pulse Resp BP BP Pulse Ox 05/08/21 20:50 36.4 C L 51 L 16 120/79 100 05/08/21 20:34 37 C 64 16 108/70 98 (1) GERD (gastroesophageal reflux disease) Esophagitis presence: esophagitis presence not specified Qualified Code(s): K21.9 - Gastro-esophageal reflux disease without esophagitis
[2021-05-09] MEDS: FLUTICASONE PROPIONATE NA SPR 16 GM BTL SCH (07:34)
[2021-05-09] MEDS: FOLIC ACID 1 MG TAB PO SCH (07:36)
[2021-05-09] MEDS: PANTOprazole 40 MG TAB PO SCH (07:36)
[2021-05-09] MEDS: DULoxetine HCL 20 MG CAP PO SCH (07:36)
[2021-05-09] MEDS: HYDROXYUREA 500 MG CAP PO SCH ×2 (07:39→20:18)
[2021-05-09] MEDS ORDERED: diphenhydrAMINE Capsule 25 MG CAP PO ONE (08:13)
[2021-05-09] MEDS: POTASSIUM CHLORIDE CRTAB 20 MEQ TABCR PO SCH (08:43)
[2021-05-09] MEDS: KETOROLAC TROMETHAMINE 15 MG/ML VIAL IV PRN ×2 (09:55→16:51)
[2021-05-09] MEDS: TAPENTADOL HCL ER 50 MG TABCR PO SCH (20:18)
[2021-05-09] MEDS: ENOXAPARIN INJ 40 MG/0.4 ML SYR SQ SCH (21:59)
[2021-05-10] MEDS: HYDROmorphone INJ 0.5 MG/0.5 ML SYR IV PRN ×7 (00:11→22:11)
[2021-05-10] MEDS: D5W AND 1/2NSS 1,000 ML IV SCH ×4 (00:13→20:48)
[2021-05-10] MEDS: ACETAMINOPHEN 500 MG TAB PO SCH ×6 (02:34→21:48)
[2021-05-10] MEDS: PANTOprazole 40 MG TAB PO SCH (08:39)
[2021-05-10] MEDS: DULoxetine HCL 20 MG CAP PO SCH (08:39)
[2021-05-10] MEDS: FLUTICASONE PROPIONATE NA SPR 16 GM BTL SCH (08:39)
[2021-05-10] MEDS: TAPENTADOL HCL ER 50 MG TABCR PO SCH ×2 (08:39→20:52)
[2021-05-10] MEDS: CEROVITE ADV FORMULA TAB PO SCH (08:39)
[2021-05-10] MEDS: POTASSIUM CHLORIDE CRTAB 20 MEQ TABCR PO SCH (08:39)
[2021-05-10] MEDS: FOLIC ACID 1 MG TAB PO SCH (08:39)
[2021-05-10] MEDS: HYDROXYUREA 500 MG CAP PO SCH ×2 (08:43→20:50)
[2021-05-10 08:55] LABS: Alanine Aminotransferase 12 U/L (7-52); Albumin Globulin Ratio 1.4 (0.9-2); Albumin Level 3.9 gm/dl (3.4-5.0); Alkaline Phosphatase 45 U/L (34-104); Anion Gap 4 (3-11); Aspartate Aminotransferase 28 U/L (13-39); Bilirubin,Total 2.9 mg/dl (0.2-1.0); Blood Urea Nitrogen 4 mg/dl (6-23); Calcium 8.8 mg/dl (8.5-10.1); Carbon Dioxide 27 mmol/L (21-32); Chloride 105 mmol/L (98-107); Creatinine Clr Calc Pharmacy 206.5 ml/min; Est GFR (African American) > 150.0 ml/min; Est GFR (Non-African American) 147.8 ml/min; Globulin 2.7 gm/dl (2.5-4.0); Glucose 85 mg/dl (70-99(Fasting)); Potassium 3.7 mmol/L (3.5-5.1); Sodium 136 mmol/L (136-145); Total Protein 6.6 gm/dl (6.0-8.3)
[2021-05-10 09:06] LABS: ALC (manual) 2.96 K/uL (1.2-3.4); ANC (manual) 5.66 K/uL (1.4-6.5); Anisocytosis Present; Hematocrit (blood only) 26.9 % (37-47); Hemoglobin 9.9 g/dL (12.0-16.0); Lymphocytes # (manual) 2.96 K/uL (1.2-3.4); Lymphocytes % (manual) 32.5 %; Mean Corpuscular Hemoglobin 32.9 pg (25-34); Mean Corpuscular Hgb Conc 36.8 g/dL (32-36); Mean Corpuscular Volume 89.4 fL (80-100); Mean Platelet Volume 9.3 fL (7.4-10.4); Monocytes # (manual) 0.48 K/uL (0.11-0.59); Monocytes % (manual) 5.3 %; Neutrophils # (manual) 5.66 K/uL (1.4-6.5); Neutrophils % (manual) 62.2 %; Nucleated RBC # (auto) 0.31 K/uL (0-0); Nucleated RBC % (auto) 3.4 %; Platelet Count 312 K/uL (130-400); Platelet Estimate Normal (Normal); Polychromasia 1+; RDW Standard Deviation 63.9 fL (36.4-46.3); Red Blood Count 3.01 M/uL (4.2-5.4); Sickle Cells 3+; Spherocytes 1+
[2021-05-10] MEDS: ONDANSETRON INJ 2 MG/ML 2 ML VIAL IV PRN ×2 (11:55→19:09)
--- NOTE | 2021-05-10 15:15 | Hospitalist Progress Note ---
Date of Service May 10, 2021 Assessment & Plan (1) Sickle cell crisis: Plan: Sickle cell crisis: - Hgb stable in high 8s since 11/28.. - Hemoglobin at 9.5 today after 2 units of blood yesterday. No need to transfuse at this time. - Continue half-normal saline with D5 at 125 cc/h - Graduated pain scale as follows: Toradol every 6 hour for mild pain, Dilaudid 0.25 mg for moderate pain, Dilaudid 0.5 mg for severe pain. Naloxone available. -Keep Nucynta on board twice daily with the goal of spacing out pain regimen to every 6 hour as patient is able to tolerate. - Continue Hydroxyurea 1000mg PO BID Nasal congestion, improved - Viral versus allergic etiology - Continue Flonase daily - Patient is covid vaccinated - Continue to monitor Depression/borderline personality disorder - continue duloxetine GERD (gastroesophageal reflux disease): - continue Protonix 40mg PO daily Psychogenic nonepileptic seizure: - Usually occurs with stressful events - Continue reassurance, anxiety management, pain control Hyperbilirubinemia - Total hemoglobin of 4.0 on admission likely due to current sickle cell crisis with red blood cell lysis, now at 2.9 - Has chronically elevated bilirubin - No RUQ symptoms - Continue to monitor Diet: Regular DVT prophylaxis: Lovenox Disposition: [facility] CODE STATUS: Full code (2) Hyperbilirubinemia: (3) GERD (gastroesophageal reflux disease): (4) Depression: Admission and Anticipated Discharge Date Admission Date: May 08, 2021 Supervising Physician Co-Signing Physician Notes Attending attestation Pt seen and examined in concert with Dr. Alas. In agreement with the documented findings as noted in the resident documentation with any exceptions or additions as noted here. Ongoing diffuse pain with minimal subjective change, currently ~5/10 without change with addition of PO medication at this time. Still complains of intermittent itching relieved by PO benadryl On examination, S1/S2 nl RRR no MCG. CTAB. Abd NT/ND BS+ve. Resting more comfortably than previous, more interactive. SCD w/o ACS with worsening anemia - s/p 2U PRBC (transfuse at 09/10) - continue pain control regimen with return to PO Nucynta as tolerated.Continue hydroxyurea. IVF. Else see resident documentation as noted. Subjective Patient seen at bedside this morning. No acute overnight events reported. Patient states that her pain is currently at a 7.5/10. Yesterday there was an attempt to put her on her oral pain regiment from home in addition to her current graduated as needed pain regimen here. Patient reports that the Nucynta does not really do much for her pain it just makes her nauseous. Otherwise patient has the complaint of continued itchiness. A one-time dose of Benadryl was given to her yesterday which did provide her with some relief. Otherwise patient has no other complaints at this time just would like to remain on her pain regiment and not have it spaced out further. Review of Systems Review of Systems: All systems reviewed & are unremarkable except as noted in HPI & below Physical Exam Constitutional: WD/WN, vitals as above Eyes: PERRL, conjunctivae normal, anicteric sclerae Neck: normal visual inspection Respiratory: normal respiratory effort, lungs clear to auscultation Cardiovascular: RRR, no murmur, no edema Gastrointestinal (Abdomen): Inspection/Auscultation: abdomen normal to inspection and normal bowel sounds Percussion/Palpation: + abdomen tender and abdomen soft Musculoskeletal: Head/Neck/Chest: normocephalic and head atraumatic Skin: no rashes, warm and dry Neurologic: moves all extremities Psychiatric: A+Ox3, euthymic affect Results & Data Results & Data ([facility]) Vital Signs (Past 12 Hours) Vital Signs Temp Pulse Pulse Resp BP BP Pulse Ox 05/10/21 07:50 36.7 C 66 18 112/74 94 05/10/21 05:35 37.0 C 63 18 104/64 93 05/10/21 04:30 36.8 C 66 16 106/67 93 05/10/21 03:30 36.9 C 66 16 127/82 93 (1) GERD (gastroesophageal reflux disease) Esophagitis presence: esophagitis presence not specified Qualified Code(s): K21.9 - Gastro-esophageal reflux disease without esophagitis
[2021-05-10] MEDS: ENOXAPARIN INJ 40 MG/0.4 ML SYR SQ SCH (21:48)
[2021-05-11] MEDS: ACETAMINOPHEN 500 MG TAB PO SCH ×6 (01:12→23:01)
[2021-05-11] MEDS: HYDROmorphone INJ 0.5 MG/0.5 ML SYR IV PRN ×8 (01:12→23:01)
[2021-05-11] MEDS: diphenhydrAMINE Capsule 25 MG CAP PO PRN (01:18)
[2021-05-11] MEDS: D5W AND 1/2NSS 1,000 ML IV SCH ×3 (04:56→20:12)
[2021-05-11 06:15] LABS: Mean Corpuscular Hgb Conc 36.9 g/dL (32-36); Mean Platelet Volume 9.9 fL (7.4-10.4); Nucleated RBC # (auto) 0.34 K/uL (0-0); Nucleated RBC % (auto) 3.8 %; Platelet Count 319 K/uL (130-400)
[2021-05-11 06:28] LABS: Alanine Aminotransferase 16 U/L (7-52); Albumin Globulin Ratio 1.4 (0.9-2); Albumin Level 3.9 gm/dl (3.4-5.0); Alkaline Phosphatase 52 U/L (34-104); Anion Gap 6 (3-11); Aspartate Aminotransferase 31 U/L (13-39); BUN Creatinine Ratio 11.1 (10-20); Bilirubin,Total 3.1 mg/dl (0.2-1.0); Blood Urea Nitrogen 6 mg/dl (6-23); Calcium 8.6 mg/dl (8.5-10.1); Carbon Dioxide 27 mmol/L (21-32); Chloride 104 mmol/L (98-107); Est GFR (African American) > 150.0 ml/min; Est GFR (Non-African American) 133.9 ml/min; Globulin 2.8 gm/dl (2.5-4.0); Glucose 89 mg/dl (70-99(Fasting)); Potassium 3.5 mmol/L (3.5-5.1); Sodium 137 mmol/L (136-145); Total Protein 6.7 gm/dl (6.0-8.3)
[2021-05-11 07:10] LABS: ALC (manual) 2.78 K/uL (1.2-3.4); ANC (manual) 5.26 K/uL (1.4-6.5); Anisocytosis Present; Basophils # (manual) 0.15 K/uL (0-0.2); Basophils % (manual) 1.7 %; Eosinophils # (manual) 0.23 K/uL (0-0.5); Eosinophils % (manual) 2.6 %; Hematocrit (blood only) 27.1 % (37-47); Howell-Jolly Bodies 1+; Lymphocytes # (manual) 2.78 K/uL (1.2-3.4); Lymphocytes % (manual) 31.3 %; Mean Corpuscular Hemoglobin 33.6 pg (25-34); Mean Corpuscular Volume 90.9 fL (80-100); Monocytes # (manual) 0.46 K/uL (0.11-0.59); Monocytes % (manual) 5.2 %; Neutrophils # (manual) 5.26 K/uL (1.4-6.5); Neutrophils % (manual) 59.2 %; Pappenheimer Bodies 1+; Polychromasia 2+; RDW Coefficient of Variation 20.4 % (11.5-14.5); RDW Standard Deviation 66.9 fL (36.4-46.3); Red Blood Count 2.98 M/uL (4.2-5.4); Sickle Cells 2+; Target Cells 1+; White Blood Count 8.89 K/uL (4.8-10.8)
[2021-05-11] MEDS: PANTOprazole 40 MG TAB PO SCH (08:41)
[2021-05-11] MEDS: CEROVITE ADV FORMULA TAB PO SCH (08:41)
[2021-05-11] MEDS: FLUTICASONE PROPIONATE NA SPR 16 GM BTL SCH (08:41)
[2021-05-11] MEDS: POTASSIUM CHLORIDE CRTAB 20 MEQ TABCR PO SCH (08:41)
[2021-05-11] MEDS: FOLIC ACID 1 MG TAB PO SCH (08:41)
[2021-05-11] MEDS: DULoxetine HCL 20 MG CAP PO SCH (08:41)
[2021-05-11] MEDS: TAPENTADOL HCL ER 50 MG TABCR PO SCH ×2 (08:42→20:13)
[2021-05-11] MEDS: HYDROXYUREA 500 MG CAP PO SCH ×2 (08:43→20:13)
--- NOTE | 2021-05-11 11:41 | Hospitalist Progress Note ---
Date of Service May 11, 2021 Assessment & Plan (1) Sickle cell crisis: Plan: Sickle cell crisis: - Hgb stable in high 8s since 11/28.. - Hemoglobin at 9.5 today after 2 units of blood yesterday. No need to transfuse at this time. - Continue half-normal saline with D5 at 125 cc/h - Graduated pain scale as follows: Toradol every 6 hour for mild pain, Dilaudid 0.25 mg for moderate pain, Dilaudid 0.5 mg for severe pain. Naloxone available. -Keep Nucynta on board twice daily with the goal of spacing out pain regimen to every 6 hour as patient is able to tolerate, for now continue every 3 hour pain control. -If chest pain continues, consider getting a chest x-ray. Not likely to be acute chest syndrome at this time. - Continue Hydroxyurea 1000mg PO BID Nasal congestion, improved - Viral versus allergic etiology - Continue Flonase daily - Patient is covid vaccinated - Continue to monitor Depression/borderline personality disorder - continue duloxetine GERD (gastroesophageal reflux disease): - continue Protonix 40mg PO daily Psychogenic nonepileptic seizure: - Usually occurs with stressful events - Continue reassurance, anxiety management, pain control Hyperbilirubinemia - Total hemoglobin of 4.0 on admission likely due to current sickle cell crisis with red blood cell lysis, now at 2.9 - Has chronically elevated bilirubin - No RUQ symptoms - Continue to monitor Diet: Regular DVT prophylaxis: Lovenox Disposition: [facility] CODE STATUS: Full code (2) Hyperbilirubinemia: (3) GERD (gastroesophageal reflux disease): (4) Depression: Admission and Anticipated Discharge Date Admission Date: May 08, 2021 Supervising Physician Co-Signing Physician Notes I also saw the patient ith the resident physician and confirmed amaro portions of the history and physical examination. Upon exam, the patient is lying left lateral recumbent position, working on an iPad. No acute distress appreciated. She does note chest pain/pressure, consistent with her previous exacerbations, perhaps a little bit worse at present. She denies any shortness of breath at this time. She is able to converse in full and complete sentences without pause. Exam 106/67, 67, 18, 37, 93% on room air Heart regular rate and rhythm. No murmurs rubs or gallops are appreciated. Respirations are nonlabored. Lungs are clear throughout. Data Hemoglobin 10, WBC 8.89. Assessment and Plan Sickle cell crises Status post transfusion 2 units packed red blood cells 05/09/2021 Hemoglobin improved and stable Continue pain management CBC in AM Additional per resident note Subjective Patient seen at bedside this morning. No overnight events reported. Patient states that she is still having about the same amount of pain. In addition she is also having some chest discomfort without any shortness of breath. States that the pain is midline. Otherwise everything seems to be about the same. Voices no other new complaints at this time. Review of Systems Review of Systems: All systems reviewed & are unremarkable except as noted in HPI & below Physical Exam Constitutional: WD/WN, vitals as above Eyes: PERRL, conjunctivae normal, anicteric sclerae Neck: normal visual inspection Respiratory: normal respiratory effort, lungs clear to auscultation Cardiovascular: RRR, no murmur, no edema Gastrointestinal (Abdomen): Inspection/Auscultation: abdomen normal to inspection and normal bowel sounds Musculoskeletal: Head/Neck/Chest: normocephalic and head atraumatic Skin: no rashes, warm and dry Neurologic: moves all extremities Psychiatric: A+Ox3, euthymic affect Results & Data Results & Data ([facility]) Vital Signs (Past 12 Hours) Vital Signs Temp Pulse Resp BP Pulse Ox 05/11/21 07:30 37 C 67 18 106/67 93 (1) GERD (gastroesophageal reflux disease) Esophagitis presence: esophagitis presence not specified Qualified Code(s): K21.9 - Gastro-esophageal reflux disease without esophagitis
[2021-05-11] MEDS: ENOXAPARIN INJ 40 MG/0.4 ML SYR SQ SCH (20:17)
[2021-05-12] MEDS: HYDROmorphone INJ 0.5 MG/0.5 ML SYR IV PRN ×8 (02:03→23:12)
[2021-05-12] MEDS: ACETAMINOPHEN 500 MG TAB PO SCH ×4 (02:03→21:25)
[2021-05-12] MEDS: D5W AND 1/2NSS 1,000 ML IV SCH ×3 (04:53→23:12)
[2021-05-12 07:21] LABS: Basophils # (auto) 0.03 K/uL (0-0.2); Basophils % (auto) 0.4 %; Eosinophils # (auto) 0.21 K/uL (0-0.5); Eosinophils % (auto) 2.7 %; Hematocrit (blood only) 28.3 % (37-47); Immature Granulocytes # (auto) 0.01 K/uL (0.00-0.02); Immature Granulocytes % (auto) 0.1 %; Lymphocytes # (auto) 1.76 K/uL (1.2-3.4); Mean Corpuscular Hemoglobin 32.5 pg (25-34); Mean Corpuscular Hgb Conc 35.3 g/dL (32-36); Mean Corpuscular Volume 91.9 fL (80-100); Mean Platelet Volume 9.7 fL (7.4-10.4); Monocytes # (auto) 0.47 K/uL (0.11-0.59); Monocytes % (auto) 6.1 %; Neutrophils # (auto) 5.17 K/uL (1.4-6.5); Neutrophils % (auto) 67.7 %; Nucleated RBC % (auto) 2.7 %; Platelet Count 346 K/uL (130-400); RDW Coefficient of Variation 20.1 % (11.5-14.5); RDW Standard Deviation 66.6 fL (36.4-46.3); Red Blood Count 3.08 M/uL (4.2-5.4); White Blood Count 7.65 K/uL (4.8-10.8)
[2021-05-12 07:46] LABS: Anisocytosis Present; Howell-Jolly Bodies 1+; Polychromasia 1+; Sickle Cells 2+; Target Cells 1+
[2021-05-12 07:48] LABS: Alanine Aminotransferase 16 U/L (7-52); Albumin Globulin Ratio 1.4 (0.9-2); Albumin Level 4.1 gm/dl (3.4-5.0); Alkaline Phosphatase 52 U/L (34-104); Anion Gap 6 (3-11); Aspartate Aminotransferase 26 U/L (13-39); BUN Creatinine Ratio 21.4 (10-20); Bilirubin,Total 3.3 mg/dl (0.2-1.0); Blood Urea Nitrogen 9 mg/dl (6-23); Carbon Dioxide 27 mmol/L (21-32); Chloride 102 mmol/L (98-107); Creatinine Clr Calc Pharmacy 196.7 ml/min; Est GFR (African American) > 150.0 ml/min; Est GFR (Non-African American) 145.5 ml/min; Globulin 2.9 gm/dl (2.5-4.0); Glucose 83 mg/dl (70-99(Fasting)); Potassium 3.7 mmol/L (3.5-5.1); Sodium 135 mmol/L (136-145)
[2021-05-12] MEDS: FOLIC ACID 1 MG TAB PO SCH (08:31)
[2021-05-12] MEDS: TAPENTADOL HCL ER 50 MG TABCR PO SCH ×2 (08:31→19:59)
[2021-05-12] MEDS: CEROVITE ADV FORMULA TAB PO SCH (08:33)
[2021-05-12] MEDS: HYDROXYUREA 500 MG CAP PO SCH ×2 (08:33→19:59)
[2021-05-12] MEDS: FLUTICASONE PROPIONATE NA SPR 16 GM BTL SCH (08:34)
[2021-05-12] MEDS: PANTOprazole 40 MG TAB PO SCH (08:34)
[2021-05-12] MEDS: POTASSIUM CHLORIDE CRTAB 20 MEQ TABCR PO SCH (08:34)
[2021-05-12] MEDS: DULoxetine HCL 20 MG CAP PO SCH (08:34)
[2021-05-12] MEDS: KETOROLAC TROMETHAMINE 15 MG/ML VIAL IV PRN (10:25)
--- NOTE | 2021-05-12 11:30 | Hospitalist Progress Note ---
Date of Service May 12, 2021 Assessment & Plan (1) Sickle cell crisis: Plan: 20 yo F with PMH sickle cell anemia presenting with acute pain. Sickle cell crisis: -Hgb 8.7 on admission, drop to 7.3 next day requiring 2 units pRBCs. Currently 10.0, stable from day prior -Continue IVF, but reduce rate 125 to 80 cc/hr -Pain regimen- Toradol q6h PRN, Dilaudid q3h PRN, naloxone PRN -Nucynta 50 mg BID increased to 100 mg BID. Will space other PRN pain medication pending pt's response to this dose increase -Continue hydroxyurea 1000mg PO BID -No concern for acute chest at this time but will pursue CXR if symptoms worsen/evolve -Aim for d/c tomorrow pending pain control and medical stability Nasal congestion - Viral versus allergic etiology, likely allergic given good response to Flonase - Continue Flonase daily Depression/borderline personality disorder - continue duloxetine GERD (gastroesophageal reflux disease): - continue Protonix 40mg PO daily Psychogenic nonepileptic seizure: - Usually occurs with stressful events, no recent seizure - Continue reassurance, anxiety management, pain control Hyperbilirubinemia - Total bilirubin of 4.0 on admission likely due to current sickle cell crisis with red blood cell lysis, now 3.3 - Has chronically elevated bilirubin - No RUQ symptoms - Continue to monitor Diet: Regular DVT prophylaxis: Lovenox Disposition: Med/Surg CODE STATUS: Full code (2) Hyperbilirubinemia: (3) GERD (gastroesophageal reflux disease): (4) Depression: Admission and Anticipated Discharge Date Admission Date: May 08, 2021 Supervising Physician Co-Signing Physician Notes I also saw the patient ith the resident physician and confirmed amaro portions of the history and physical examination. I agree with impression plan as noted in the resident documentation. Exam 101/67, 61, 18, 36.6, 95% on room air Heart regular rate and rhythm. No murmurs rubs or gallops are appreciated. Respirations are nonlabored. Lungs are clear throughout. Data Hemoglobin 10, WBC 7.65. Sodium 135, potassium 3.7, BUN 9, creatinine 0.42 Serum vitamin D 12.4 Total bilirubin 3.3 Assessment and Plan Sickle cell crises Status post transfusion 2 units packed red blood cells 05/09/2021 Hemoglobin remained stable Continue pain management CBC in AM Vitamin D deficiency Recommend ergocalciferol 50,000 IUs weekly x8 Additional per resident note Subjective No acute events overnight, pt doing well. Was sleeping when arriving to room for evaluation but subsequently arose when prompted. Reports unchanged pain from day prior, about 7/10 severity, aching- chest, legs, back. Denies dyspnea, fevers, no evolving symptoms. Does not feel pain is well-controlled enough to go home at this time. Review of Systems Review of Systems: Per Subjective Physical Exam Constitutional: WD/WN, vitals as above Eyes: PERRL, conjunctivae normal, anicteric sclerae Neck: trachea midline, no thyromegaly normal visual inspection Respiratory: normal respiratory effort, lungs clear to auscultation Cardiovascular: RRR, no murmur, no edema Gastrointestinal (Abdomen): Inspection/Auscultation: abdomen normal to inspection Percussion/Palpation: + abdomen tender and abdomen soft Musculoskeletal: Head/Neck/Chest: normocephalic and head atraumatic Skin: no rashes, warm and dry Neurologic: moves all extremities Psychiatric: A+Ox3, euthymic affect Lymphatic: no cervical lymphadenopathy Results & Data Results & Data ([facility]) Vital Signs (Past 12 Hours) Vital Signs Temp Pulse Resp BP Pulse Ox 05/12/21 07:35 36.6 C 61 18 101/67 95 05/12/21 00:02 37.2 C 66 14 110/60 94 Resident Activity Tracking Resident Involvement: Resident Care Provided Care Provided: Adult Hospital Medicine (1) GERD (gastroesophageal reflux disease) Esophagitis presence: esophagitis presence not specified Qualified Code(s): K21.9 - Gastro-esophageal reflux disease without esophagitis
[2021-05-12] MEDS ORDERED: ERGOCALCIFEROL 50,000 UNITS 1250 MCG CAP PO ONE (13:55)
[2021-05-12] MEDS: ENOXAPARIN INJ 40 MG/0.4 ML SYR SQ SCH (21:25)
[2021-05-13] MEDS: HYDROmorphone INJ 0.5 MG/0.5 ML SYR IV PRN ×8 (02:19→23:30)
[2021-05-13] MEDS: ACETAMINOPHEN 500 MG TAB PO SCH ×3 (05:27→20:31)
[2021-05-13 07:27] LABS: Hematocrit (blood only) 28.5 % (37-47); Mean Corpuscular Hemoglobin 32.5 pg (25-34); Mean Corpuscular Hgb Conc 35.1 g/dL (32-36); Mean Corpuscular Volume 92.5 fL (80-100); Mean Platelet Volume 9.6 fL (7.4-10.4); Nucleated RBC # (auto) 0.15 K/uL (0-0); Nucleated RBC % (auto) 2.3 %; Platelet Count 345 K/uL (130-400); RDW Coefficient of Variation 19.8 % (11.5-14.5); RDW Standard Deviation 65.8 fL (36.4-46.3); Red Blood Count 3.08 M/uL (4.2-5.4); White Blood Count 6.53 K/uL (4.8-10.8)
[2021-05-13 07:49] LABS: Alanine Aminotransferase 15 U/L (7-52); Albumin Globulin Ratio 1.4 (0.9-2); Albumin Level 4.1 gm/dl (3.4-5.0); Alkaline Phosphatase 49 U/L (34-104); Anion Gap 6 (3-11); Aspartate Aminotransferase 27 U/L (13-39); BUN Creatinine Ratio 18.6 (10-20); Blood Urea Nitrogen 8 mg/dl (6-23); Calcium 9.1 mg/dl (8.5-10.1); Carbon Dioxide 26 mmol/L (21-32); Chloride 103 mmol/L (98-107); Creatinine Clr Calc Pharmacy 192.1 ml/min; Est GFR (African American) > 150.0 ml/min; Est GFR (Non-African American) 144.4 ml/min; Glucose 87 mg/dl (70-99(Fasting)); Potassium 3.5 mmol/L (3.5-5.1); Sodium 135 mmol/L (136-145); Total Protein 7.1 gm/dl (6.0-8.3)
[2021-05-13] MEDS: TAPENTADOL HCL ER 50 MG TABCR PO SCH ×2 (08:26→20:29)
[2021-05-13] MEDS: DULoxetine HCL 20 MG CAP PO SCH (08:27)
[2021-05-13] MEDS: CEROVITE ADV FORMULA TAB PO SCH (08:27)
[2021-05-13] MEDS: HYDROXYUREA 500 MG CAP PO SCH ×2 (08:27→20:29)
[2021-05-13] MEDS: FOLIC ACID 1 MG TAB PO SCH (08:27)
[2021-05-13] MEDS: POTASSIUM CHLORIDE CRTAB 20 MEQ TABCR PO SCH (08:28)
[2021-05-13] MEDS: PANTOprazole 40 MG TAB PO SCH (08:28)
[2021-05-13] MEDS: FLUTICASONE PROPIONATE NA SPR 16 GM BTL SCH (08:32)
--- NOTE | 2021-05-13 11:00 | Hospitalist Progress Note ---
Date of Service May 13, 2021 Assessment & Plan (1) Sickle cell crisis: Plan: 20 yo F with PMH sickle cell anemia presenting with acute pain. Sickle cell crisis: -Hgb 8.7 on admission, drop to 7.3 next day requiring 2 units pRBCs. Currently 10.0, stable from day prior -Discontinued IVF today -Pain regimen- Toradol q6h PRN, Dilaudid q3h PRN, naloxone PRN -Continue Nucynta ER 100 mg BID. Will space other PRN pain medication pending pt's response to this dose increase. -Continue hydroxyurea 1000mg PO BID -No concern for acute chest at this time but will pursue CXR if symptoms worsen/evolve -Aim for d/c tomorrow pending pain control Vitamin D deficiency -Vitamin D level of 12.4 -Initiated ergocalciferol 50k units on 05/13, continue weekly for 8 weeks Nasal congestion - Viral versus allergic etiology, likely allergic given good response to Flonase - Continue Flonase daily Depression/borderline personality disorder - continue duloxetine GERD (gastroesophageal reflux disease): - continue Protonix 40mg PO daily Psychogenic nonepileptic seizure: - Usually occurs with stressful events, no recent seizure - Continue reassurance, anxiety management, pain control Hyperbilirubinemia - Total bilirubin of 4.0 on admission likely due to current sickle cell crisis with red blood cell lysis, downtrending, currently 3 - Has chronically elevated bilirubin - No RUQ symptoms - Continue to monitor Diet: Regular DVT prophylaxis: Lovenox Disposition: Med/Surg CODE STATUS: Full code (2) Hyperbilirubinemia: (3) GERD (gastroesophageal reflux disease): (4) Depression: Admission and Anticipated Discharge Date Admission Date: May 08, 2021 Supervising Physician Co-Signing Physician Notes I also saw the patient ith the resident physician and confirmed amaro portions of the history and physical examination. . I agree with impression plan as noted in the resident documentation. Upon additional summation, the patient is sleeping but awakens to voice Still with chest pain consistent with her previous sickle cell crises, although perhaps a bit better than yesterday. Exam Wilate over 69, 50, 16, 37.3, 97% room air Heart regular rate and rhythm. No murmurs rubs or gallops are appreciated. Respirations are nonlabored. Lungs are clear throughout. Data Hemoglobin 10 Sodium 135, potassium 3.5, BUN 8, creatinine 0.43 Assessment and Plan Sickle cell crises Status post transfusion 2 units packed red blood cells 05/09/2021 Hemoglobin remained stable last 3 days at 10 Continue pain management CBC in AM Vitamin D deficiency Recommend ergocalciferol 50,000 IUs weekly x8 Additional per resident note Subjective No acute events overnight, pt doing well. Was sleeping when arriving to room for evaluation but subsequently arose when prompted. Reports minimal improvement in pain from day prior, about 7/10 severity but only in chest now. Denies dyspnea, fevers, no evolving symptoms. Does not feel pain is well-controlled enough to go home at this time. Said she'll try to go longer without Dilaudid PRN usage. Review of Systems Review of Systems: Per Subjective Physical Exam Constitutional: WD/WN, vitals as above Eyes: PERRL, conjunctivae normal, anicteric sclerae Neck: trachea midline, no thyromegaly normal visual inspection Respiratory: normal respiratory effort, lungs clear to auscultation Cardiovascular: RRR, no murmur, no edema Gastrointestinal (Abdomen): Inspection/Auscultation: abdomen normal to inspection Percussion/Palpation: + abdomen tender and abdomen soft Musculoskeletal: Head/Neck/Chest: normocephalic and head atraumatic Skin: no rashes, warm and dry Neurologic: moves all extremities Psychiatric: A+Ox3, euthymic affect Lymphatic: no cervical lymphadenopathy Results & Data Results & Data ([facility]) Vital Signs (Past 12 Hours) Vital Signs Temp Pulse Resp BP Pulse Ox 05/13/21 08:05 37.3 C 50 L 16 108/69 97 Resident Activity Tracking Resident Involvement: Resident Care Provided Care Provided: Adult Hospital Medicine (1) GERD (gastroesophageal reflux disease) Esophagitis presence: esophagitis presence not specified Qualified Code(s): K21.9 - Gastro-esophageal reflux disease without esophagitis
[2021-05-13] MEDS: D5W AND 1/2NSS 1,000 ML IV SCH (11:32)
[2021-05-13] MEDS: POLYETHYLENE (MIRALAX) 17 GM PACK PO PRN (17:43)
[2021-05-13] MEDS: ENOXAPARIN INJ 40 MG/0.4 ML SYR SQ SCH (20:30)
[2021-05-14] MEDS: diphenhydrAMINE Capsule 25 MG CAP PO PRN (02:31)
[2021-05-14] MEDS: HYDROmorphone INJ 0.5 MG/0.5 ML SYR IV PRN ×7 (02:31→21:44)
[2021-05-14] MEDS: ACETAMINOPHEN 500 MG TAB PO SCH ×3 (05:28→21:38)
[2021-05-14 06:17] LABS: Hematocrit (blood only) 27.3 % (37-47); Hemoglobin 9.7 g/dL (12.0-16.0); Mean Corpuscular Hemoglobin 33.1 pg (25-34); Mean Corpuscular Hgb Conc 35.5 g/dL (32-36); Mean Corpuscular Volume 93.2 fL (80-100); Mean Platelet Volume 9.4 fL (7.4-10.4); Nucleated RBC # (auto) 0.17 K/uL (0-0); Nucleated RBC % (auto) 2.6 %; Platelet Count 312 K/uL (130-400); RDW Coefficient of Variation 19.4 % (11.5-14.5); RDW Standard Deviation 65.8 fL (36.4-46.3); Red Blood Count 2.93 M/uL (4.2-5.4); White Blood Count 6.46 K/uL (4.8-10.8)
--- NOTE | 2021-05-14 06:55 | Hospitalist Progress Note ---
Date of Service May 14, 2021 Assessment & Plan (1) Sickle cell crisis: Plan: 20 yo F with PMH sickle cell anemia presenting with acute pain. Sickle cell crisis: -Hgb 8.7 on admission, drop to 7.3 next day requiring 2 units pRBCs. Currently 9.7, stable from day prior -Discontinued IVF today -Pain regimen- Toradol q6h PRN, Dilaudid q3h PRN, naloxone PRN -Continue Nucynta ER 100 mg BID. Added Nucynta 50mg HS, will check pain level tomorrow morning. -Continue hydroxyurea 1000mg PO BID -No concern for acute chest at this time but will pursue CXR if symptoms worsen/evolve -d/c home pending pain control Vitamin D deficiency -Vitamin D level of 12.4 -Initiated ergocalciferol 50k units on 05/13, continue weekly for 8 weeks Nasal congestion - Viral versus allergic etiology, likely allergic given good response to Flonase - Continue Flonase daily Depression/borderline personality disorder - continue duloxetine GERD (gastroesophageal reflux disease): - continue Protonix 40mg PO daily Psychogenic nonepileptic seizure: - Usually occurs with stressful events, no recent seizure - Continue reassurance, anxiety management, pain control Hyperbilirubinemia - Total bilirubin of 4.0 on admission likely due to current sickle cell crisis with red blood cell lysis, downtrending, currently 3 - Has chronically elevated bilirubin - No RUQ symptoms - Continue to monitor Diet: Regular DVT prophylaxis: Lovenox Disposition: Med/Surg CODE STATUS: Full code (2) Hyperbilirubinemia: (3) GERD (gastroesophageal reflux disease): (4) Depression: Admission and Anticipated Discharge Date Admission Date: May 08, 2021 Supervising Physician Co-Signing Physician Notes I personally examined the patient and verified all amaro points of history and exam, discussed case, and agree with decision making with Dr Carballo Feeling better than when she came in. Acutely, notes that pain is still fairly bad at night making it hard to sleep. Notes that she has a significant amount of left hip pain that inhibits her daily activity, but also that this has been going on for months. Also notes a chest heaviness as well as pain, that seems different than her previous sternal pain purely related to sickle cell. Vitals noted, in general she is awake and alert pleasant no distress. HEENT normocephalic atraumatic mucous membranes moist. Breathing unlabored no accessory muscle use good effort. Skin shows no rashes no pallor or icterus. Neuro without focal deficits. Left hip tender in the groin area, not tender at the trochanter or posterior musculature. Sternum a little bit tender, but parasternal musculature in the region of intercostals high tone, tender, decreased range of motionbalanced ligamentous tensionimproved. Patient tolerated well. Sickle cell crises Status post transfusion 2 units packed red blood cells 05/09/2021 Hemoglobin remained stable last 3 days at 10 Continue pain managementseems to be improving overall, add short acting Nucynta at bedtime to complement her long-acting. Overall would anticipate that she would probably do well with a scheduled long-acting Nucynta, as well as a 3 carmen es daily to 4 times daily as needed, but she definitely tries to be on as little medications as possible, and this regimen is never really translated to the outpatient settingso for now, we will simply augment her at bedtime pain control with short acting Nucynta on top of the long-acting. Hip pain Unfortunately appears to be predominantly joint relatedno significant bi omechanical component noted at this time. Discussed how to approach considering risk/benefit of total hip arthroplasty, despite her young age. Discussed that the "shelf life" of a hip replacement is definitely something to consider given how young she has, but also would want her to consider how much the hip is limiting her mobility, and what other "spinoff" comorbidities that could create Chest pain/rib somatic dysfunction Some of her sternal pain does appear to be sickle cell related, but she also does have some chest wall and intercostal muscle dysfunctionOMT as above. Anticipate that she would do well with fairly routine OMT in the office Vitamin D deficiency Replace vitamin D, repeat levels in 2 to 3 months otherwise as above Subjective No overnight events. Patient feels better than yesterday but still feels like there is pain present. Pain is mostly at the abdomen and chest. Still has some congestion. Denies nausea or vomiting, fevers or chills. Physical Exam Constitutional: WD/WN, vitals as above Eyes: PERRL, conjunctivae normal, anicteric sclerae Respiratory: normal respiratory effort, lungs clear to auscultation Cardiovascular: RRR, no murmur, no edema Gastrointestinal (Abdomen): BS+, non-distended, soft, tender to palpation in all quadrants without rebound or guarding. Results & Data Results & Data ([facility]) Vital Signs (Past 12 Hours) Vital Signs Temp Pulse Resp BP Pulse Ox 05/13/21 23:27 37.4 C 68 18 103/68 96 Resident Activity Tracking Resident Involvement: Resident Care Provided Care Provided: Adult Hospital Medicine (1) GERD (gastroesophageal reflux disease) Esophagitis presence: esophagitis presence not specified Qualified Code(s): K21.9 - Gastro-esophageal reflux disease without esophagitis
[2021-05-14] MEDS: TAPENTADOL HCL ER 50 MG TABCR PO SCH ×2 (09:00→20:03)
[2021-05-14] MEDS: FLUTICASONE PROPIONATE NA SPR 16 GM BTL SCH (09:00)
[2021-05-14] MEDS: DULoxetine HCL 20 MG CAP PO SCH (09:01)
[2021-05-14] MEDS: HYDROXYUREA 500 MG CAP PO SCH ×2 (09:01→21:38)
[2021-05-14] MEDS: FOLIC ACID 1 MG TAB PO SCH (09:02)
[2021-05-14] MEDS: POTASSIUM CHLORIDE CRTAB 20 MEQ TABCR PO SCH (09:02)
[2021-05-14] MEDS: CEROVITE ADV FORMULA TAB PO SCH (09:02)
[2021-05-14] MEDS: PANTOprazole 40 MG TAB PO SCH (09:03)
[2021-05-14] MEDS ORDERED: hydrOXYzine HCl 25 MG TAB PO STA (16:35)
--- NOTE | 2021-05-14 17:30 | Billing Data ---
Date of Service May 14, 2021 Coding Level of Care Code 95207 Subseq Hosp Care Lvl 3
--- NOTE | 2021-05-14 17:31 | Hospitalist Progress Note ---
Date of Service May 14, 2021 Assessment & Plan Admission and Anticipated Discharge Date Admission Date: May 08, 2021 Results & Data Results & Data ([facility]) Vital Signs (Past 12 Hours) Vital Signs Temp Pulse Resp BP Pulse Ox 05/14/21 15:03 98.2 F 74 16 105/62 96 05/14/21 07:56 97.9 F 58 L 16 95/58 L 96 PG Care Time/CCT Total # of Minutes Spent Total Time Spent with Patient: Total time spent is greater than 50% in coordination of care (as documented) at patient's floor/unit and/or counseling patient: Coding Level of Care Code None CPT Codes Musculoskeletal - Musculoskeletal: [address] 1-2 Body regions ([id number])
[2021-05-14] MEDS ORDERED: TAPENTADOL HCL 50 MG TAB PO SCH (21:00)
[2021-05-14] MEDS: ENOXAPARIN INJ 40 MG/0.4 ML SYR SQ SCH (21:38)
[2021-05-15] MEDS: HYDROmorphone INJ 0.5 MG/0.5 ML SYR IV PRN ×7 (00:48→21:03)
[2021-05-15] MEDS: diphenhydrAMINE Capsule 25 MG CAP PO PRN (01:21)
[2021-05-15] MEDS: ACETAMINOPHEN 500 MG TAB PO SCH ×3 (06:08→21:04)
--- NOTE | 2021-05-15 07:18 | Hospitalist Progress Note ---
Date of Service May 15, 2021 Assessment & Plan (1) Sickle cell crisis: Plan: 20 yo F with PMH sickle cell anemia presenting with acute pain. Sickle cell crisis: -Hgb 8.7 on admission, drop to 7.3 next day requiring 2 units pRBCs. Currently 9.7, stable from day prior -Discontinued IVF today -Pain regimen- Toradol q6h PRN, Dilaudid q3h PRN, naloxone PRN -Continue Nucynta ER 100 mg BID. -Given patient's past dizziness with Nucynta will try to add on Tramadol, last tried tramadol 2 years ago. -Ordered 100mg Tramadol to be given and 50mg PRN q4h for pain. -Continue hydroxyurea 1000mg PO BID -No concern for acute chest at this time but will pursue CXR if symptoms worsen/evolve -d/c home pending pain control Vitamin D deficiency -Vitamin D level of 12.4 -Initiated ergocalciferol 50k units on 05/13, continue weekly for 8 weeks Nasal congestion - Viral versus allergic etiology, likely allergic given good response to Flonase - Continue Flonase daily Depression/borderline personality disorder - continue duloxetine GERD (gastroesophageal reflux disease): - continue Protonix 40mg PO daily Psychogenic nonepileptic seizure: - Usually occurs with stressful events, no recent seizure - Continue reassurance, anxiety management, pain control Hyperbilirubinemia - Total bilirubin of 4.0 on admission likely due to current sickle cell crisis with red blood cell lysis, downtrending, currently 3 - Has chronically elevated bilirubin - No RUQ symptoms - Continue to monitor Diet: Regular DVT prophylaxis: Lovenox Disposition: Med/Surg CODE STATUS: Full code (2) Hyperbilirubinemia: (3) GERD (gastroesophageal reflux disease): (4) Depression: Admission and Anticipated Discharge Date Admission Date: May 08, 2021 Supervising Physician Co-Signing Physician Notes I personally examined the patient and verified all amaro points of history and exam, discussed case, and agree with decision making with Dr Carballo Pain control still inadequate without IV pain medicines. In discussion of escalation of p.o. pain meds, she notes that she believes that the Nucynta was causing dizzinessshe thought at home it was actually the long-acting that was causing dizziness, although it is not entirely clear from previous interviews what she did in fact get filled at home, as it seems that there may have been some degree of misunderstanding of her regimenshe is also been on long-acting Nucynta here for the last week, and has not had dizziness, so I wonder if it was not that short acting. She is willing to give trial to p.o. pain meds preferential to IV Vitals noted, in general she is awake and alert pleasant no distress. HEENT normocephalic atraumatic mucous membranes moist. Breathing unlabored no accessory muscle use good effort. Skin shows no rashes no pallor or icterus. Neuro without focal deficits. Sickle cell crises Status post transfusion 2 units packed red blood cells 05/09/2021 Hemoglobin remained stable last 3 days at 10 Continue pain managementprobably has severe enough chronic pain that a "basal bolus" pain regimen makes sense for hershe is currently on long-acting Nucynta twice dailywe will continue this for now. Given that she related dizziness with Nucynta as the reason that she was not taking at home, will give trial to tramadol insteaddiscussed with her that I worry a little about the potency may be not being strong enough to treat her pain given the chronicity/severity, and it, too, may cause dizzinesswhich may need us to revisit pain regimens altogetherbut the potential for it to be helpful is real, and it would probably be less problematic than a "traditional" narcotic if it helps. If she is doing better with this, we also will need to call her pharmacy to see what was actually filled, as far as the potential culprit for Nucynta with dizziness Hip pain Unfortunately appears to be predominantly joint relatedno significant biomechanical component noted at this time. Discussed how to approach considering risk/benefit of total hip arthroplasty, despite her young age. Discussed that the "shelf life" of a hip replacement is definitely something to consider given how young she has, but also would want her to consider how much the hip is limiting her mobility, and what other "spinoff" comorbidities that could create Chest pain/rib somatic dysfunction Some of her sternal pain does appear to be sickle cell related, but she also does have some chest wall and intercostal muscle dysfunctionOMT done 05/14. Anticipate that she would do well with fairly routine OMT in the office Vitamin D deficiency Replace vitamin D, repeat levels in 2 to 3 months otherwise as above Subjective No overnight events. Patient said she did not sleep very well last night, had trouble staying asleep due to pain. Still having same pain at sternum and abdomen. Patient stated she has had dizziness in the past most likely related to the Nucynta extended release. Physical Exam Constitutional: WD/WN, vitals as above Eyes: PERRL, conjunctivae normal, anicteric sclerae Respiratory: normal respiratory effort, lungs clear to auscultation Cardiovascular: RRR, no murmur, no edema Gastrointestinal (Abdomen): BS+, non-distended, soft, tender to palpation throughout without rebound or guarding. Results & Data Results & Data ([facility]) Vital Signs (Past 12 Hours) Vital Signs Temp Pulse Resp BP Pulse Ox 05/14/21 22:25 37 C 68 16 103/65 96 Resident Activity Tracking Resident Involvement: Resident Care Provided Care Provided: Adult Hospital Medicine (1) GERD (gastroesophageal reflux disease) Esophagitis presence: esophagitis presence not specified Qualified Code(s): K21.9 - Gastro-esophageal reflux disease without esophagitis
[2021-05-15] MEDS: POTASSIUM CHLORIDE CRTAB 20 MEQ TABCR PO SCH (08:42)
[2021-05-15] MEDS: CEROVITE ADV FORMULA TAB PO SCH (08:43)
[2021-05-15] MEDS: HYDROXYUREA 500 MG CAP PO SCH ×2 (08:43→21:04)
[2021-05-15] MEDS: FOLIC ACID 1 MG TAB PO SCH (08:43)
[2021-05-15] MEDS: PANTOprazole 40 MG TAB PO SCH (08:43)
[2021-05-15] MEDS: FLUTICASONE PROPIONATE NA SPR 16 GM BTL SCH (08:44)
[2021-05-15] MEDS: CHOLECALCIFEROL 5,000 UNITS 125 MCG TAB PO SCH (08:44)
[2021-05-15] MEDS: DULoxetine HCL 20 MG CAP PO SCH (08:44)
[2021-05-15] MEDS: TAPENTADOL HCL ER 50 MG TABCR PO SCH ×2 (08:45→19:39)
[2021-05-15] MEDS ORDERED: TAPENTADOL HCL 50 MG TAB PO PRN (14:47)
[2021-05-15] MEDS ORDERED: traMADol HCL 50 MG TABLET PO PRN (16:15)
[2021-05-15] MEDS ORDERED: traMADol HCL 50 MG TABLET PO STA (16:15)
--- NOTE | 2021-05-15 16:53 | Billing Data ---
Date of Service May 15, 2021 Coding Level of Care Code 84129 Subseq Hosp Care Lvl 3
[2021-05-15] MEDS: ENOXAPARIN INJ 40 MG/0.4 ML SYR SQ SCH (21:04)
[2021-05-16] MEDS: HYDROmorphone INJ 0.5 MG/0.5 ML SYR IV PRN ×7 (00:03→21:40)
[2021-05-16] MEDS: diphenhydrAMINE Capsule 25 MG CAP PO PRN (00:03)
[2021-05-16] MEDS: ACETAMINOPHEN 500 MG TAB PO SCH ×3 (05:53→21:40)
--- NOTE | 2021-05-16 06:46 | Hospitalist Progress Note ---
Date of Service May 16, 2021 Assessment & Plan (1) Sickle cell crisis: Plan: 20 yo F with PMH sickle cell anemia presenting with acute pain. Sickle cell crisis: -Hgb 8.7 on admission, drop to 7.3 next day requiring 2 units pRBCs. Currently 9.7, stable from day prior -Discontinued IVF today -Pain regimen- Toradol q6h PRN, Dilaudid q3h PRN, naloxone PRN -Continue Nucynta ER 100 mg BID. -Given patient's past dizziness with Nucynta will try to add on Tramadol, last tried tramadol 2 years ago. -Given Tramadol 100mg starting dose 05/15, will try scheduled Tramadol 50mg q6h. -Continue hydroxyurea 1000mg PO BID -No concern for acute chest at this time but will pursue CXR if symptoms worsen/evolve -d/c home pending pain control Vitamin D deficiency -Vitamin D level of 12.4 -Initiated ergocalciferol 50k units on 05/13, continue weekly for 8 weeks Nasal congestion - Viral versus allergic etiology, likely allergic given good response to Flonase - Continue Flonase daily Depression/borderline personality disorder - continue duloxetine GERD (gastroesophageal reflux disease): - continue Protonix 40mg PO daily Psychogenic nonepileptic seizure: - Usually occurs with stressful events, no recent seizure - Continue reassurance, anxiety management, pain control Hyperbilirubinemia - Total bilirubin of 4.0 on admission likely due to current sickle cell crisis with red blood cell lysis, downtrending, currently 3 - Has chronically elevated bilirubin - No RUQ symptoms - Continue to monitor Diet: Regular DVT prophylaxis: Lovenox Disposition: Med/Surg CODE STATUS: Full code (2) Hyperbilirubinemia: (3) GERD (gastroesophageal reflux disease): (4) Depression: Admission and Anticipated Discharge Date Admission Date: May 08, 2021 Supervising Physician Co-Signing Physician Notes I personally examined the patient and verified all amaro points of history and exam, discussed case, and agree with decision making with Dr Carballo feels more or less the same. does note poor appetite, but also no BM. not really a lot of dizziness - notes that when she sits up qiucly and really focuses, maybe she has a little - but nothing intolerable. notes mouth ulcers from time to time and painful crack at corner of mouth. Vitals noted, in general she is awake and alert pleasant no distress. HEENT normocephalic atraumatic mucous membranes moist. Breathing unlabored no accessory muscle use good effort. Skin shows no rashes no pallor or icterus. Neuro without focal deficits. Sickle cell crises Status post transfusion 2 units packed red blood cells 05/09/2021 Hemoglobin remained stable last 3 days at 10 Continue pain managementprobably has severe enough chronic pain that a "basal bolus" pain regimen makes sense for hershe is currently on long-acting Nucynta twice dailywe will continue this for now. Given that she related dizziness with Nucynta as the reason that she was not taking at home, giving trial to tramadol insteadif helping then will probably need to change nucynta ER to a different long acting pain med to reduce termite helper risk for serotonin syndrome. If she is doing better with this, we also will need to call her pharmacy to see what was actually filled, as far as the potential culprit for Nucynta with dizziness Hip pain Unfortunately appears to be predominantly joint relatedno significant biomechanical component noted at this time. Discussed how to approach considering risk/benefit of total hip arthroplasty, despite her young age. Discussed that the "shelf life" of a hip replacement is definitely something to consider given how young she has, but also would want her to consider how much the hip is limiting her mobility, and what other "spinoff" comorbidities that could create Chest pain/rib somatic dysfunction Some of her sternal pain does appear to be sickle cell related, but she also does have some chest wall and intercostal muscle dysfunctionOMT done 05/14. Anticipate that she would do well with fairly routine OMT in the office Vitamin D deficiency Replace vitamin D, repeat levels in 2 to 3 months mouth ulcers, angular chelitis - nonspecific, but it has been a year since last B12 level, which was 542. given acute/chronic illness/etc - reasonable to recheck. otherwise as above Subjective No overnight events. Patient still feeling pain at this time in the usual areas of chest, arms, legs. Had difficulty sleeping again last night due to the pain. Physical Exam Constitutional: WD/WN, vitals as above Eyes: PERRL, conjunctivae normal, anicteric sclerae Respiratory: normal respiratory effort, lungs clear to auscultation Cardiovascular: RRR, no murmur, no edema Gastrointestinal (Abdomen): Bs+, non-distended, soft, mild tenderness to palpation diffusely through abdomen. Results & Data Results & Data ([facility]) Vital Signs (Past 12 Hours) Vital Signs Temp Pulse Resp BP Pulse Ox 05/15/21 22:57 37.0 C 87 14 98/63 L 96 (1) GERD (gastroesophageal reflux disease) Esophagitis presence: esophagitis presence not specified Qualified Code(s): K21.9 - Gastro-esophageal reflux disease without esophagitis
[2021-05-16] MEDS: TAPENTADOL HCL ER 50 MG TABCR PO SCH ×2 (09:03→20:24)
[2021-05-16] MEDS: DULoxetine HCL 20 MG CAP PO SCH (09:04)
[2021-05-16] MEDS: CHOLECALCIFEROL 5,000 UNITS 125 MCG TAB PO SCH (09:04)
[2021-05-16] MEDS: FLUTICASONE PROPIONATE NA SPR 16 GM BTL SCH (09:05)
[2021-05-16] MEDS: FOLIC ACID 1 MG TAB PO SCH (09:05)
[2021-05-16] MEDS: HYDROXYUREA 500 MG CAP PO SCH ×2 (09:05→21:41)
[2021-05-16] MEDS: PANTOprazole 40 MG TAB PO SCH (09:05)
[2021-05-16] MEDS: CEROVITE ADV FORMULA TAB PO SCH (09:05)
[2021-05-16] MEDS: POTASSIUM CHLORIDE CRTAB 20 MEQ TABCR PO SCH (09:06)
[2021-05-16] MEDS ORDERED: traMADol HCL 50 MG TABLET PO SCH (10:00)
[2021-05-16] MEDS: POLYETHYLENE (MIRALAX) 17 GM PACK PO PRN (10:33)
[2021-05-16] MEDS ORDERED: POLYETHYLENE (MIRALAX) 17 GM PACK PO PRN (12:23)
[2021-05-16] MEDS ORDERED: hydrOXYzine HCl 25 MG TAB PO PRN (12:23)
[2021-05-16] MEDS: EUCERIN CR 120 GM JAR EXT SCH ×3 (14:01→21:23)
--- NOTE | 2021-05-16 15:29 | Billing Data ---
Date of Service May 16, 2021 Coding Level of Care Code 59358 Subseq Hosp Care Lvl 3
[2021-05-16] MEDS: traMADol HCL 50 MG TABLET PO SCH ×2 (17:15→23:46)
[2021-05-16] MEDS: ENOXAPARIN INJ 40 MG/0.4 ML SYR SQ SCH (21:41)
[2021-05-17] MEDS: HYDROmorphone INJ 0.5 MG/0.5 ML SYR IV PRN ×7 (01:12→21:48)
[2021-05-17] MEDS: diphenhydrAMINE Capsule 25 MG CAP PO PRN (01:39)
[2021-05-17] MEDS: ACETAMINOPHEN 500 MG TAB PO SCH ×3 (05:19→21:49)
[2021-05-17] MEDS: traMADol HCL 50 MG TABLET PO SCH ×2 (05:19→13:15)
[2021-05-17 06:46] LABS: Alanine Aminotransferase 25 U/L (7-52); Albumin Globulin Ratio 1.3 (0.9-2); Albumin Level 4.3 gm/dl (3.4-5.0); Alkaline Phosphatase 56 U/L (34-104); Anion Gap 5 (3-11); Aspartate Aminotransferase 57 U/L (13-39); BUN Creatinine Ratio 30.4 (10-20); Bilirubin,Total 2.2 mg/dl (0.2-1.0); Blood Urea Nitrogen 14 mg/dl (6-23); Calcium 9.3 mg/dl (8.5-10.1); Carbon Dioxide 26 mmol/L (21-32); Chloride 100 mmol/L (98-107); Creatinine Clr Calc Pharmacy 179.6 ml/min; Est GFR (African American) > 150.0 ml/min; Est GFR (Non-African American) 141.2 ml/min; Globulin 3.4 gm/dl (2.5-4.0); Glucose 82 mg/dl (70-99(Fasting)); Potassium 4.3 mmol/L (3.5-5.1); Sodium 131 mmol/L (136-145); Total Protein 7.7 gm/dl (6.0-8.3)
--- NOTE | 2021-05-17 07:42 | Hospitalist Progress Note ---
Date of Service May 17, 2021 Assessment & Plan (1) Sickle cell crisis: Plan: 20 yo F with PMH sickle cell anemia presenting with acute pain. Sickle cell crisis: -Hgb 8.7 on admission, drop to 7.3 next day requiring 2 units pRBCs. Currently 9.7, stable from day prior -Discontinued IVF today -Pain regimen- Toradol q6h PRN, Dilaudid q3h PRN, naloxone PRN -With worsening dizziness on tramadol and patient complaining of dizziness with Nucynta ER will try Fentanyl low dose patch 12mcg as well as Nucynta short acting 100mg Q6H. -Goal will be to find a pain regimen that works, patient is on the same page and would like to figure that out now as opposed to extended visits in clinic. -Continue hydroxyurea 1000mg PO BID -No concern for acute chest at this time but will pursue CXR if symptoms worsen/evolve -d/c home pending pain control Vitamin D deficiency -Vitamin D level of 12.4 -Initiated ergocalciferol 50k units on 05/13, continue weekly for 8 weeks Vitamin B12 deficiency -Patient with B12 level of 434, has few mouth ulcers and some chaffing at sides of lips. -Will give 1,000mcg Cyanocobalamin qAM. Nasal congestion - Viral versus allergic etiology, likely allergic given good response to Flonase - Continue Flonase daily Depression/borderline personality disorder - continue duloxetine GERD (gastroesophageal reflux disease): - continue Protonix 40mg PO daily Psychogenic nonepileptic seizure: - Usually occurs with stressful events, no recent seizure - Continue reassurance, anxiety management, pain control Hyperbilirubinemia - Total bilirubin of 4.0 on admission likely due to current sickle cell crisis with red blood cell lysis, downtrending, currently 3 - Has chronically elevated bilirubin - No RUQ symptoms - Continue to monitor Diet: Regular DVT prophylaxis: Lovenox Disposition: Med/Surg CODE STATUS: Full code (2) Hyperbilirubinemia: (3) GERD (gastroesophageal reflux disease): (4) Depression: Admission and Anticipated Discharge Date Admission Date: May 08, 2021 Supervising Physician Co-Signing Physician Notes I personally examined the patient and verified all amaro points of history and exam, discussed case, and agree with decision making with Dr Carballo 100 mg tramadol helps with pain, but she notes it does cause dizziness. After careful discussion and review of prescribing records, it was now more clear that the long-acting Nucynta was, in fact what was making her dizzy. Vitals noted, in general she is awake and alert pleasant no distress. HEENT normocephalic atraumatic mucous membranes moist. Breathing unlabored no accessory muscle use good effort. Skin shows no rashes no pallor or icterus. Neuro without focal deficits. Sickle cell crises Status post transfusion 2 units packed red blood cells 05/09/2021 Hemoglobin overall stable Continue pain managementprobably has severe enough chronic pain that a "basal bolus" pain regimen makes sense for herthe problem is running into a combination of problems with things not being effective enough to improve her pain, or helping with pain some, but causing intolerable dizziness. Given that the short acting Nucynta did not cause dizziness, but she relates at home the long-acting did, will revert to short acting Nucynta for as needed, but will give trial to a fentanyl patch for basal. Angular cheilitis and aphthous ulcers -B12 technically at the lower end of normal at 434, but low enough given symptoms that could fit with low B12, and given that her B12 dropped about 100 points over the last yeargive trial for p.o. replacement Hip pain Unfortunately appears to be predominantly joint relatedno significant biomechanical component noted at this time. Discussed how to approach considering risk/benefit of total hip arthroplasty, despite her young age. Discussed that the "shelf life" of a hip replacement is definitely something to consider given how young she has, but also would want her to consider how much the hip is limiting her mobility, and what other "spinoff" comorbidities that could create Chest pain/rib somatic dysfunction Some of her sternal pain does appear to be sickle cell related, but she also does have some chest wall and intercostal muscle dysfunctionOMT done 05/14. Anticipate that she would do well with fairly routine OMT in the office Vitamin D deficiency Replace vitamin D, repeat levels in 2 to 3 months otherwise as above Subjective No overnight events. Patient says she feels dizzy with the tramadol added on and still thinks that the extended release Nucynta is adding to the dizziness. Physical Exam Constitutional: WD/WN, vitals as above Eyes: PERRL, conjunctivae normal, anicteric sclerae Respiratory: normal respiratory effort, lungs clear to auscultation Cardiovascular: RRR, no murmur, no edema Results & Data Results & Data ([facility]) Vital Signs (Past 12 Hours) Vital Signs Temp Pulse Resp BP Pulse Ox 05/16/21 22:26 37.3 C 88 16 107/69 96 Resident Activity Tracking Resident Involvement: Resident Care Provided Care Provided: Adult Hospital Medicine (1) GERD (gastroesophageal reflux disease) Esophagitis presence: esophagitis presence not specified Qualified Code(s): K21.9 - Gastro-esophageal reflux disease without esophagitis
[2021-05-17] MEDS: POTASSIUM CHLORIDE CRTAB 20 MEQ TABCR PO SCH (09:26)
[2021-05-17] MEDS: DULoxetine HCL 20 MG CAP PO SCH (09:26)
[2021-05-17] MEDS: TAPENTADOL HCL ER 50 MG TABCR PO SCH (09:26)
[2021-05-17] MEDS: HYDROXYUREA 500 MG CAP PO SCH ×2 (09:27→20:48)
[2021-05-17] MEDS: CEROVITE ADV FORMULA TAB PO SCH (09:27)
[2021-05-17] MEDS: PANTOprazole 40 MG TAB PO SCH (09:27)
[2021-05-17] MEDS: FLUTICASONE PROPIONATE NA SPR 16 GM BTL SCH (09:27)
[2021-05-17] MEDS: CHOLECALCIFEROL 5,000 UNITS 125 MCG TAB PO SCH (09:27)
[2021-05-17] MEDS: FOLIC ACID 1 MG TAB PO SCH (09:28)
[2021-05-17] MEDS: EUCERIN CR 120 GM JAR EXT SCH ×4 (09:28→20:48)
[2021-05-17] MEDS ORDERED: TAPENTADOL HCL 50 MG TAB PO PRN (17:50)
[2021-05-17] MEDS ORDERED: fentaNYL 12 MCG/HR TDSY TD SCH (18:00)
--- NOTE | 2021-05-17 19:36 | Billing Data ---
Date of Service May 17, 2021 Coding Level of Care Code 27797 Initial Inpt Care Lvl 3
[2021-05-17] MEDS: TAPENTADOL HCL 50 MG TAB PO SCH (20:49)
[2021-05-17] MEDS: POLYETHYLENE (MIRALAX) 17 GM PACK PO PRN (20:58)
[2021-05-17] MEDS: ENOXAPARIN INJ 40 MG/0.4 ML SYR SQ SCH (21:49)
[2021-05-18] MEDS: CHECK fentaNYL PATCH PLACEMENT SCH ×4 (00:29→23:48)
[2021-05-18] MEDS: diphenhydrAMINE Capsule 25 MG CAP PO PRN (00:54)
[2021-05-18] MEDS: HYDROmorphone INJ 0.5 MG/0.5 ML SYR IV PRN ×7 (00:54→21:20)
[2021-05-18] MEDS: ACETAMINOPHEN 500 MG TAB PO SCH ×3 (06:14→21:58)
--- NOTE | 2021-05-18 08:09 | Hospitalist Progress Note ---
Date of Service May 18, 2021 Assessment & Plan (1) Sickle cell crisis: Plan: 20 yo F with PMH sickle cell anemia presenting with acute pain. Sickle cell crisis: -Hgb 8.7 on admission, drop to 7.3 next day requiring 2 units pRBCs. Currently 9.7, stable from day prior -Discontinued IVF today -Pain regimen- Toradol q6h PRN, Dilaudid q3h PRN, naloxone PRN -Fentanyl low dose patch 12mcg as well as Nucynta short acting 100mg Q6H for pain. -Will try to increase bowel regimen for possible affects of the opioid medications causing constipation -Started Mylanta ac scheduled, lactulose 30g 18:00, 19:00 scheduled followed by q1 PRN. -Goal will be to find a pain regimen that works, patient is on the same page and would like to figure that out now as opposed to extended visits in clinic. -Continue hydroxyurea 1000mg PO BID -No concern for acute chest at this time but will pursue CXR if symptoms worsen/evolve -d/c home pending pain control Vitamin D deficiency -Vitamin D level of 12.4 -Initiated ergocalciferol 50k units on 05/13, continue weekly for 8 weeks Vitamin B12 deficiency -Patient with B12 level of 434, has few mouth ulcers and some chaffing at sides of lips. -Will give 1,000mcg Cyanocobalamin qAM. Nasal congestion - Viral versus allergic etiology, likely allergic given good response to Flonase - Continue Flonase daily Depression/borderline personality disorder - continue duloxetine GERD (gastroesophageal reflux disease): - continue Protonix 40mg PO daily Psychogenic nonepileptic seizure: - Usually occurs with stressful events, no recent seizure - Continue reassurance, anxiety management, pain control Hyperbilirubinemia - Total bilirubin of 4.0 on admission likely due to current sickle cell crisis with red blood cell lysis, downtrending, currently 3 - Has chronically elevated bilirubin - No RUQ symptoms - Continue to monitor Diet: Regular DVT prophylaxis: Lovenox Disposition: Med/Surg CODE STATUS: Full code (2) Hyperbilirubinemia: (3) GERD (gastroesophageal reflux disease): (4) Depression: Admission and Anticipated Discharge Date Admission Date: May 08, 2021 Supervising Physician Co-Signing Physician Notes I personally examined the patient and verified all amaro points of history and exam, discussed case, and agree with decision making with Dr Carballo Dizzy and some abdominal pain. Has not really had a significant bowel movement. Vitals noted, in general she is awake and alert pleasant no distress. HEENT normocephalic atraumatic mucous membranes moist. Breathing unlabored no accessory muscle use good effort. Abdomen is soft but she does have epigastric and right-sided abdominal tenderness consistent with constipation, no guarding rebound or rigidity. Sickle cell/chronic paincontinue trial of titrating pain meds Dizziness/nauseafor now we will treat as abdominal and sourcewith gastritis and constipation both as probable causes. Bowel regimen, aggressive gastritis treatment. If dizziness persist, then consider if it is pain medicine related. Otherwise as above Subjective No overnight events. Patient saying that she is feeling less dizzy today but still having some nausea and abdominal pain. She said she pooped earlier today but it wasn't a whole lot or very good consistency. Physical Exam Constitutional: WD/WN, vitals as above Eyes: PERRL, conjunctivae normal, anicteric sclerae Respiratory: normal respiratory effort, lungs clear to auscultation Cardiovascular: RRR, no murmur, no edema Gastrointestinal (Abdomen): BS+, soft, non-distended, tender to palpation in RUQ/RLQ no rebound or guarding. Results & Data Results & Data ([facility]) Vital Signs (Past 12 Hours) Vital Signs Temp Pulse Pulse Resp BP Pulse Ox 05/18/21 07:19 36.9 C 88 16 95/56 L 91 05/17/21 22:52 36.7 C 94 H 14 112/72 95 Resident Activity Tracking Resident Involvement: Resident Care Provided Care Provided: Adult Hospital Medicine (1) GERD (gastroesophageal reflux disease) Esophagitis presence: esophagitis presence not specified Qualified Code(s): K21.9 - Gastro-esophageal reflux disease without esophagitis
[2021-05-18] MEDS: CHOLECALCIFEROL 5,000 UNITS 125 MCG TAB PO SCH (09:19)
[2021-05-18] MEDS: EUCERIN CR 120 GM JAR EXT SCH ×4 (09:19→21:57)
[2021-05-18] MEDS: DULoxetine HCL 20 MG CAP PO SCH (09:19)
[2021-05-18] MEDS: FLUTICASONE PROPIONATE NA SPR 16 GM BTL SCH (09:19)
[2021-05-18] MEDS: CYANOCOBALAMIN (B-12) 500 MCG TABLET PO SCH (09:19)
[2021-05-18] MEDS: FOLIC ACID 1 MG TAB PO SCH (09:19)
[2021-05-18] MEDS: HYDROXYUREA 500 MG CAP PO SCH ×2 (09:20→21:57)
[2021-05-18] MEDS: CEROVITE ADV FORMULA TAB PO SCH (09:20)
[2021-05-18] MEDS: POTASSIUM CHLORIDE CRTAB 20 MEQ TABCR PO SCH (09:20)
[2021-05-18] MEDS: PANTOprazole 40 MG TAB PO SCH ×2 (09:20→21:57)
[2021-05-18] MEDS: TAPENTADOL HCL 50 MG TAB PO SCH ×4 (09:20→21:56)
[2021-05-18] MEDS: ONDANSETRON INJ 2 MG/ML 2 ML VIAL IV PRN (15:17)
[2021-05-18] MEDS ORDERED: ALUMINUM/MAGNESIUM/SIMETH (MAALOX MAX) 30 ML UDC PO PRN (16:52)
[2021-05-18] MEDS ORDERED: LACTULOSE SYRUP 30 GM/45 ML UDP PO STA (17:24)
[2021-05-18] MEDS ORDERED: LACTULOSE SYRUP 30 GM/45 ML UDP PO PRN (17:24)
--- NOTE | 2021-05-18 17:33 | Hospitalist Progress Note ---
Date of Service May 18, 2021 Assessment & Plan (1) Sickle cell crisis: Plan: 20 yo F with PMH sickle cell anemia presenting with acute pain. Sickle cell crisis: -Hgb 8.7 on admission, drop to 7.3 next day requiring 2 units pRBCs. Currently 9.7, stable from day prior -Discontinued IVF today -Pain regimen- Toradol q6h PRN, Dilaudid q3h PRN, naloxone PRN -With worsening dizziness on tramadol and patient complaining of dizziness with Nucynta ER will try Fentanyl low dose patch 12mcg as well as Nucynta short acting 100mg Q6H. -Goal will be to find a pain regimen that works, patient is on the same page and would like to figure that out now as opposed to extended visits in clinic. -Continue hydroxyurea 1000mg PO BID -No concern for acute chest at this time but will pursue CXR if symptoms worsen/evolve -d/c home pending pain control Vitamin D deficiency -Vitamin D level of 12.4 -Initiated ergocalciferol 50k units on 05/13, continue weekly for 8 weeks Vitamin B12 deficiency -Patient with B12 level of 434, has few mouth ulcers and some chaffing at sides of lips. -Will give 1,000mcg Cyanocobalamin qAM. Nasal congestion - Viral versus allergic etiology, likely allergic given good response to Flonase - Continue Flonase daily Depression/borderline personality disorder - continue duloxetine GERD (gastroesophageal reflux disease): - continue Protonix 40mg PO daily Psychogenic nonepileptic seizure: - Usually occurs with stressful events, no recent seizure - Continue reassurance, anxiety management, pain control Hyperbilirubinemia - Total bilirubin of 4.0 on admission likely due to current sickle cell crisis with red blood cell lysis, downtrending, currently 3 - Has chronically elevated bilirubin - No RUQ symptoms - Continue to monitor Diet: Regular DVT prophylaxis: Lovenox Disposition: Med/Surg CODE STATUS: Full code Admission and Anticipated Discharge Date Admission Date: May 08, 2021 Supervising Physician Co-Signing Physician Notes I personally examined the patient and verified all amaro points of history and exam, discussed case, and agree with decision making with Dr Carballo Pain control overall reasonablestill not great, but much more tolerable. Whenever we discussed that, while we both agree for now to keep the regimen the same, we both wondered out loud if she might benefit a touch more from a slightly higher dose of fentanyl patch. She does not relate the same dizziness she has been feeling the last few daysbut does note that she has nausea accompanied with a lightheaded dizziness, as well as some stomach pain. She notes that she almost feels like she is hungry but then almost immediately feels full. When asked when her last bowel movement was, she replies that she has been drinking MiraLAX. Asking further, she notes that she really has not had much of an adequate bowel movementdid have some earlier, but very hard to push out and probably not nearly as much as she would expect to be adequate Vitals noted, in general she is awake and alert pleasant no distress. HEENT normocephalic atraumatic mucous membranes moist. Breathing unlabored no accessory muscle use good effort. Skin shows no rashes no pallor or icterus. Neuro without focal deficits. Abdomen is soft may be mildly distended epigastric tenderness as well as right mid and lower abdominal tenderness and fullness. No guarding rebound or rigidity Sickle cell crises Status post transfusion 2 units packed red blood cells 05/09/2021 Hemoglobin overall stable Continue pain managementprobably has severe enough chronic pain that a "basal bolus" pain regimen makes sense for herthe problem is running into a combination of problems with things not being effective enough to improve her pain, or helping with pain some, but causing intolerable dizziness. Seems like fentanyl is a long-acting, and Nucynta for breakthrough may be a regimen that serves her well. For now keep the samelow threshold to increase the fentanyl up to 25 mcg. See below as it relates to her dizziness, but I am suspecting its not really pain medicine related more GI. Nausea/abdominal pain/dizziness -Recurrent dizziness, well hard to describe, feels a bit different than her dizziness that she was noticing after short acting pain medicines before, this s eems to be much more when she sits up, seems to really lead with nausea, and then have the lightheaded dizziness. Her history and exam are consistent with findings both supporting gastritis and constipationI suspect constipation is a much bigger player, but it is really plausible that both are at play. For the gastritis will utilize Pepcid twice daily Protonix twice daily and Mylanta ACthis seems to have helped before; for the constipation, we discussed utilizing larger dosing of MiraLAXbut she wondered if she could really drink the fluid volume it would be dissolved into that end we will utilize lactulose 30 g every hour x3, and then every hour as needed if she still has refractory constipation Angular cheilitis and aphthous ulcers -B12 technically at the lower end of normal at 434, but low enough given symptoms that could fit with low B12, and given that her B12 dropped about 100 points over the last yeargiving trial for p.o. replacement Hip pain Unfortunately appears to be predominantly joint relatedno significant biomechanical component noted at this time. Discussed how to approach considering risk/benefit of total hip arthroplasty, despite her young age. Discussed that the "shelf life" of a hip replacement is definitely something to consider given how young she has, but also would want her to consider how much t he hip is limiting her mobility, and what other "spinoff" comorbidities that could create Chest pain/rib somatic dysfunction Some of her sternal pain does appear to be sickle cell related, but she also does have some chest wall and intercostal muscle dysfunctionOMT done 05/14. Anticipate that she would do well with fairly routine OMT in the office Vitamin D deficiency Replace vitamin D, repeat levels in 2 to 3 months otherwise as above Results & Data Results & Data ([facility]) Vital Signs (Past 12 Hours) Vital Signs Temp Pulse Resp BP Pulse Ox 05/18/21 15:28 98.4 F 96 H 16 131/82 95 05/18/21 07:19 98.4 F 88 16 95/56 L 91 PG Care Time/CCT Total # of Minutes Spent Total Time Spent with Patient: Total time spent is greater than 50% in coordination of care (as documented) at patient's floor/unit and/or counseling patient: Coding Level of Care Code 53158 Subseq Hosp Care Lvl 3 Diagnoses Sickle cell crisis D57.00
[2021-05-18] MEDS ORDERED: LACTULOSE SYRUP 30 GM/45 ML UDP PO ONE ×2 (18:30→19:30)
[2021-05-18] MEDS ORDERED: ALUMINUM/MAGNESIUM/SIMETH (MAALOX MAX) 30 ML UDC PO SCH (21:00)
[2021-05-18] MEDS: FAMOTIDINE 20 MG TAB PO SCH (21:57)
[2021-05-18] MEDS: ENOXAPARIN INJ 40 MG/0.4 ML SYR SQ SCH (21:58)
[2021-05-19] MEDS: HYDROmorphone INJ 0.5 MG/0.5 ML SYR IV PRN ×7 (00:28→21:44)
[2021-05-19] MEDS: ACETAMINOPHEN 500 MG TAB PO SCH ×3 (06:26→21:44)
--- NOTE | 2021-05-19 08:06 | Hospitalist Progress Note ---
Date of Service May 19, 2021 Assessment & Plan (1) Sickle cell crisis: Plan: 20 yo F with PMH sickle cell anemia presenting with acute pain. Sickle cell crisis: -Hgb 8.7 on admission, drop to 7.3 next day requiring 2 units pRBCs. Currently 9.7, stable from day prior -Discontinued IVF today -Pain regimen- Toradol q6h PRN, Dilaudid q3h PRN, naloxone PRN -Fentanyl low dose patch 12mcg as well as Nucynta short acting 100mg Q6H for pain. -Will try to increase bowel regimen for possible affects of the opioid medications causing constipation -Mylanta scheduled, lactulose 30g 18:00, 19:00 scheduled followed by q1 PRN. -Goal will be to find a pain regimen that works, patient is on the same page and would like to figure that out now as opposed to extended visits in clinic. -Continue hydroxyurea 1000mg PO BID -No concern for acute chest at this time but will pursue CXR if symptoms worsen/evolve -d/c home pending pain control Vitamin D deficiency -Vitamin D level of 12.4 -Initiated ergocalciferol 50k units on 05/13, continue weekly for 8 weeks Vitamin B12 deficiency -Patient with B12 level of 434, has few mouth ulcers and some chaffing at sides of lips. -Will give 1,000mcg Cyanocobalamin qAM. Nasal congestion - Viral versus allergic etiology, likely allergic given good response to Flonase - Continue Flonase daily Depression/borderline personality disorder - continue duloxetine GERD (gastroesophageal reflux disease): - continue Protonix 40mg PO daily Psychogenic nonepileptic seizure: - Usually occurs with stressful events, no recent seizure - Continue reassurance, anxiety management, pain control Hyperbilirubinemia - Total bilirubin of 4.0 on admission likely due to current sickle cell crisis with red blood cell lysis, downtrending, currently 3 - Has chronically elevated bilirubin - No RUQ symptoms - Continue to monitor Diet: Regular DVT prophylaxis: Lovenox Disposition: Med/Surg CODE STATUS: Full code (2) Hyperbilirubinemia: (3) GERD (gastroesophageal reflux disease): (4) Depression: Admission and Anticipated Discharge Date Admission Date: May 08, 2021 Supervising Physician Co-Signing Physician Notes I personally examined the patient and verified all amaro points of history and exam, discussed case, and agree with decision making with Dr Carballo seen 3 times today - first two times she is very tearful and asks if i would return later - on questioning she denies that it is something i can help with. on 3rd visit she is laying in bed quietly but no longer tearful - again notes that the situation is not a medical situation - rather something that she just needs to process. notes that despite BMs she is still dizzy - really feels that it's the nucynta. Vitals noted, in general she is awake and alertno physical distress. HEENT normocephalic atraumatic mucous membranes moist. Breathing unlabored no accessory muscle use good effort. Skin shows no rashes no pallor or icterus. Neuro without focal deficits. Sickle cell crises Status post transfusion 2 units packed red blood cells 05/09/2021 Hemoglobin overall stable Continue pain managementdizziness after careful trial and error probably does trace back to nucynta. "basal bolus" regimen with fentanyl (increase to 25) and oxycodone (stop nucynta, start oxycodone 10 qid scheduled) Nausea/abdominal pain/dizziness -having BMs -dizziness persists - probably does relate to nucynta - see above Angular cheilitis and aphthous ulcers -B12 technically at the lower end of normal at 434, but low enough given symptoms that could fit with low B12, and given that her B12 dropped about 100 points over the last yearcontinue p.o. replacement Hip pain Unfortunately appears to be predominantly joint relatedno significant biomechanical component noted at this time. Discussed how to approach considering risk/benefit of total hip arthroplasty, despite her young age. Discussed that the "shelf life" of a hip replacement is definitely something to consider given how young she has, but also would want her to consider how much the hip is limiting her mobility, and what other "spinoff" comorbidities that could create Chest pain/rib somatic dysfunction Some of her sternal pain does appear to be sickle cell related, but she also does have some chest wall and intercostal muscle dysfunctionOMT done 05/14. Anticipate that she would do well with fairly routine OMT in the office Vitamin D deficiency Replace vitamin D, repeat levels in 2 to 3 months otherwise as above Subjective No overnight events. Patient stated it's hard to tell if her nausea had went down when I talked to her since she had just woken up. Still having some abdominal pain at the right quadrants. Physical Exam Constitutional: WD/WN, vitals as above Eyes: PERRL, conjunctivae normal, anicteric sclerae Respiratory: normal respiratory effort, lungs clear to auscultation Cardiovascular: RRR, no murmur, no edema Gastrointestinal (Abdomen): BS+, non-distended, soft, tender to palpation in RUQ RLQ, umbilicus. Results & Data Results & Data ([facility]) Vital Signs (Past 12 Hours) Vital Signs Temp Pulse Resp BP BP Pulse Ox 05/19/21 07:33 37.1 C 82 16 96/57 L 93 05/18/21 23:12 36.9 C 96 H 14 114/76 95 Resident Activity Tracking Resident Involvement: Resident Care Provided Care Provided: Adult Hospital Medicine (1) GERD (gastroesophageal reflux disease) Esophagitis presence: esophagitis presence not specified Qualified Code(s): K21.9 - Gastro-esophageal reflux disease without esophagitis
[2021-05-19] MEDS: ALUMINUM/MAGNESIUM/SIMETH (MAALOX MAX) 30 ML UDC PO SCH ×3 (08:45→17:17)
[2021-05-19] MEDS: CHECK fentaNYL PATCH PLACEMENT SCH ×2 (08:49→15:50)
[2021-05-19] MEDS: CHOLECALCIFEROL 5,000 UNITS 125 MCG TAB PO SCH (08:50)
[2021-05-19] MEDS: HYDROXYUREA 500 MG CAP PO SCH ×2 (08:50→20:25)
[2021-05-19] MEDS: PANTOprazole 40 MG TAB PO SCH ×2 (08:50→20:27)
[2021-05-19] MEDS: FOLIC ACID 1 MG TAB PO SCH (08:50)
[2021-05-19] MEDS: DULoxetine HCL 20 MG CAP PO SCH (08:51)
[2021-05-19] MEDS: FAMOTIDINE 20 MG TAB PO SCH ×2 (08:51→20:25)
[2021-05-19] MEDS: CEROVITE ADV FORMULA TAB PO SCH (08:51)
[2021-05-19] MEDS: FLUTICASONE PROPIONATE NA SPR 16 GM BTL SCH (08:52)
[2021-05-19] MEDS: CYANOCOBALAMIN (B-12) 500 MCG TABLET PO SCH (08:52)
[2021-05-19] MEDS: EUCERIN CR 120 GM JAR EXT SCH ×4 (08:52→20:28)
[2021-05-19] MEDS: POTASSIUM CHLORIDE CRTAB 20 MEQ TABCR PO SCH (08:53)
[2021-05-19] MEDS: TAPENTADOL HCL 50 MG TAB PO SCH ×2 (08:55→12:59)
[2021-05-19] MEDS: ONDANSETRON INJ 2 MG/ML 2 ML VIAL IV PRN (14:00)
[2021-05-19] MEDS ORDERED: diphenhydrAMINE Capsule 25 MG CAP PO ONE (15:27)
--- NOTE | 2021-05-19 16:10 | Billing Data ---
Date of Service May 19, 2021 Coding Level of Care Code 78657 Subseq Hosp Care Lvl 3
--- NOTE | 2021-05-19 16:10 | Billing Data ---
Date of Service May 18, 2021 Coding Level of Care Code 37032 Subseq Hosp Care Lvl 3
[2021-05-19] MEDS: fentaNYL 25 MCG/HR TDSY TD SCH (16:36)
[2021-05-19] MEDS: oxyCODONE HCL IR 5 MG TAB (IMMEDIATE RELEASE) PO SCH ×2 (17:16→20:27)
[2021-05-19] MEDS: ENOXAPARIN INJ 40 MG/0.4 ML SYR SQ SCH (21:54)
[2021-05-20] MEDS: CHECK fentaNYL PATCH PLACEMENT SCH ×4 (00:01→23:04)
[2021-05-20] MEDS: HYDROmorphone INJ 0.5 MG/0.5 ML SYR IV PRN ×6 (01:04→21:42)
[2021-05-20] MEDS: ACETAMINOPHEN 500 MG TAB PO SCH ×3 (05:45→21:04)
--- NOTE | 2021-05-20 07:04 | Hospitalist Progress Note ---
Date of Service May 20, 2021 Assessment & Plan (1) Sickle cell crisis: Plan: 20 yo F with H sickle cell anemia presenting with acute pain. Sickle cell crisis: -Hgb 8.7 on admission, drop to 7.3 next day requiring 2 units pRBCs. 9.7 stable at this time. -Pain regimen- Toradol q6h PRN, Dilaudid q3h PRN, naloxone PRN -Fentanyl low dose patch 12mcg for extended release pain relief. -Changed Nucynta to oxycodone 10mg QID for short acting pain. -Will try to increase bowel regimen for possible affects of the opioid medications causing constipation -Goal will be to find a pain regimen that works, patient is on the same page and would like to figure that out now as opposed to extended visits in clinic. -Continue hydroxyurea 1000mg PO BID -No concern for acute chest at this time but will pursue CXR if symptoms worsen/evolve -d/c home pending pain control Constipation: -Most likely due to opioid pain regimen. -May be causing nausea/dizziness given persistence even with changing from Nucynta to fentanyl/oxycodone. -Mylanta scheduled, lactulose 30g 18:00, 19:00 scheduled followed by q1 PRN. Vitamin D deficiency -Vitamin D level of 12.4 -Initiated ergocalciferol 50k units on 05/13, continue weekly for 8 weeks Vitamin B12 deficiency -Patient with B12 level of 434, has few mouth ulcers and some chaffing at sides of lips. -Will give 1,000mcg Cyanocobalamin qAM. Nasal congestion - Viral versus allergic etiology, likely allergic given good response to Flonase - Continue Flonase daily Depression/borderline personality disorder - continue duloxetine GERD (gastroesophageal reflux disease): - continue Protonix 40mg PO daily Psychogenic nonepileptic seizure: - Usually occurs with stressful events, no recent seizure - Continue reassurance, anxiety management, pain control Hyperbilirubinemia - Total bilirubin of 4.0 on admission likely due to current sickle cell crisis with red blood cell lysis, downtrending, currently 3 - Has chronically elevated bilirubin - No RUQ symptoms - Continue to monitor Diet: Regular DVT prophylaxis: Lovenox Disposition: Med/Surg CODE STATUS: Full code (2) Hyperbilirubinemia: (3) GERD (gastroesophageal reflux disease): (4) Depression: Admission and Anticipated Discharge Date Admission Date: May 08, 2021 Supervising Physician Co-Signing Physician Notes I personally examined the patient and verified all amaro points of history and exam, discussed case, and agree with decision making with Dr Carballo Nausea but not as much dizziness. Definitely feels different than yesterday. Vitals noted, in general she is awake and alert pleasant no distress. HEENT normocephalic atraumatic mucous membranes moist. Breathing unlabored no accessory muscle use good effort. Abdomen soft mild epigastric and right-sided greater than left-sided tenderness no guarding rebound rigidity firmness fullness masses organomegaly. Sickle cell/chronic paincontinue trial of titrating pain medspain does seem to be doing better on 25 mcg fentanyl patch and 4 times daily oxycodone. The main thing the monitor for at this point is how much side effect it is causing. Continue bowel regimen. Dizziness/nauseafor now we will treat as abdominal and sourcewith gastritis and constipation both as probable causes. Bowel regimen (given lactulose 05/18 w results - conitnue daily miralax) aggressive gastritis treatment. Otherwise as above - hopefully home soon - once nausae better, and as long as current pain regimen helping Subjective No overnight events. Patient feeling nauseated when seen by primary team. Still having abdominal pain, nausea, and dizziness despite change up of medications. Denies fevers, chills, vomiting. Review of Systems Review of Systems: as per subjective. Physical Exam Constitutional: WD/WN, vitals as above Eyes: PERRL, conjunctivae normal, anicteric sclerae Respiratory: normal respiratory effort, lungs clear to auscultation Cardiovascular: RRR, no murmur, no edema Gastrointestinal (Abdomen): Soft, non-distended, tender to palpation throughout without rebound or guarding. Results & Data Results & Data ([facility]) Vital Signs (Past 12 Hours) Vital Signs Temp Pulse Resp BP Pulse Ox 05/19/21 22:56 36.8 C 91 H 16 98/60 L 96 Resident Activity Tracking Resident Involvement: Resident Care Provided Care Provided: Adult [facility] Medicine (1) GERD (gastroesophageal reflux disease) Esophagitis presence: esophagitis presence not specified Qualified Code(s): K21.9 - Gastro-esophageal reflux disease without esophagitis
[2021-05-20] MEDS: ALUMINUM/MAGNESIUM/SIMETH (MAALOX MAX) 30 ML UDC PO SCH ×3 (08:51→17:31)
[2021-05-20] MEDS: CYANOCOBALAMIN (B-12) 500 MCG TABLET PO SCH (08:52)
[2021-05-20] MEDS: DULoxetine HCL 20 MG CAP PO SCH (08:52)
[2021-05-20] MEDS: EUCERIN CR 120 GM JAR EXT SCH ×4 (08:52→21:05)
[2021-05-20] MEDS: CHOLECALCIFEROL 5,000 UNITS 125 MCG TAB PO SCH (08:52)
[2021-05-20] MEDS: FLUTICASONE PROPIONATE NA SPR 16 GM BTL SCH (08:53)
[2021-05-20] MEDS: FOLIC ACID 1 MG TAB PO SCH (08:53)
[2021-05-20] MEDS: FAMOTIDINE 20 MG TAB PO SCH ×2 (08:53→21:03)
[2021-05-20] MEDS: CEROVITE ADV FORMULA TAB PO SCH (08:53)
[2021-05-20] MEDS: HYDROXYUREA 500 MG CAP PO SCH ×2 (08:54→21:05)
[2021-05-20] MEDS: oxyCODONE HCL IR 5 MG TAB (IMMEDIATE RELEASE) PO SCH ×4 (08:54→21:07)
[2021-05-20] MEDS: PANTOprazole 40 MG TAB PO SCH ×2 (08:54→21:04)
[2021-05-20] MEDS: POTASSIUM CHLORIDE CRTAB 20 MEQ TABCR PO SCH (10:24)
[2021-05-20] MEDS: ONDANSETRON INJ 2 MG/ML 2 ML VIAL IV PRN ×2 (11:24→21:12)
--- NOTE | 2021-05-20 13:40 | Billing Data ---
Date of Service May 20, 2021 Coding Level of Care Code 77686 Subseq Hosp Care Lvl 3
[2021-05-20] MEDS: ENOXAPARIN INJ 40 MG/0.4 ML SYR SQ SCH (21:05)
[2021-05-21] MEDS: HYDROmorphone INJ 0.5 MG/0.5 ML SYR IV PRN ×6 (00:46→23:39)
[2021-05-21] MEDS: ACETAMINOPHEN 500 MG TAB PO SCH ×3 (06:35→22:09)
--- NOTE | 2021-05-21 08:00 | Hospitalist Progress Note ---
Date of Service May 21, 2021 Assessment & Plan (1) Sickle cell crisis: Plan: 20 yo F with H sickle cell anemia presenting with acute pain. Sickle cell crisis: -Hgb 8.7 on admission, drop to 7.3 next day requiring 2 units pRBCs. 8.1 this morning. -Pain regimen- Toradol q6h PRN, Dilaudid q3h PRN, naloxone PRN -Fentanyl low dose patch 12mcg for extended release pain relief. -Oxycodone 10mg QID for short acting pain. -Goal will be to find a pain regimen that works. -Continue hydroxyurea 1000mg PO BID -No concern for acute chest at this time but will pursue CXR if symptoms worsen/evolve -d/c home pending pain control Constipation: -due to opioid pain regimen. -May be causing nausea/dizziness given persistence even with changing from Nucynta to fentanyl/oxycodone. -On bowel regimen of Mylanta 30ml ac and lactulose 30mg q1hr PRN. Vitamin D deficiency -Vitamin D level of 12.4 -Initiated ergocalciferol 50k units on 05/13, continue weekly for 8 weeks Vitamin B12 deficiency/Mouth sores -Patient with B12 level of 434, has few mouth ulcers and some chaffing at sides of lips. -Will give 1,000mcg Cyanocobalamin qAM. -Ordered one dose of triamcinolone topical for mouth sores, magic swizzle PRN for sore in mouth. Nasal congestion - Viral versus allergic etiology, likely allergic given good response to Flonase - Continue Flonase daily Depression/borderline personality disorder/anxiety -feeling worse anxiety today leading being more depressed. -Hesitant to ask for hydroxyzine for concern of being labeled as drug seeking by nurse -reassured and adivsed to ask for meds when needed. -Switched Hydroxyzine 25mg BID to QID prn anxiety. -continue duloxetine GERD (gastroesophageal reflux disease): - continue Protonix 40mg PO daily Psychogenic nonepileptic seizure: - Usually occurs with stressful events, no recent seizure - Continue reassurance, anxiety management, pain control Hyperbilirubinemia - Total bilirubin of 4.0 on admission likely due to current sickle cell crisis with red blood cell lysis, downtrending, currently 3 - Has chronically elevated bilirubin - No RUQ symptoms - Continue to monitor Diet: Regular DVT prophylaxis: Lovenox Disposition: Med/Surg CODE STATUS: Full code (2) Hyperbilirubinemia: (3) GERD (gastroesophageal reflux disease): (4) Depression: Admission and Anticipated Discharge Date Admission Date: May 08, 2021 Supervising Physician Co-Signing Physician Notes Resident Physician Supervision Note: I independently interviewed and examined the patient and verified the amaro history and physical, reviewed labs and image studies and agree with resident Dr. Carballo findings and care plan. Subjective No overnight events. Endorsed she was able to sleep through the night last night which is an improvement over the last few days. She did not have too much nausea or dizziness but she had not been up too long when seen. Denies fevers, chills, vomiting. Received a call from Alena from [employer] saying she is a therapist that James sees. She stated she got a call from James earlier in the day that was a little concerning to her but could not elaborate due to confidentiality. Upon interviewing James she endorsed feeling some anxiety. Denied suicidal ideation. Review of Systems Review of Systems: As per subjective. Physical Exam Constitutional: WD/WN, vitals as above Eyes: PERRL, conjunctivae normal, anicteric sclerae Respiratory: normal respiratory effort, lungs clear to auscultation Cardiovascular: RRR, no murmur, no edema Results & Data Results & Data ([facility]) Vital Signs (Past 12 Hours) Vital Signs Temp Pulse Pulse Resp BP Pulse Ox 05/21/21 07:12 36.7 C 85 16 91/55 L 93 05/20/21 22:29 37.3 C 95 H 18 130/50 L 95 Resident Activity Tracking Resident Involvement: Resident Care Provided Care Provided: Adult Hospital Medicine (1) GERD (gastroesophageal reflux disease) Esophagitis presence: esophagitis presence not specified Qualified Code(s): K21.9 - Gastro-esophageal reflux disease without esophagitis
[2021-05-21 08:44] LABS: Basophils # (auto) 0.03 K/uL (0-0.2); Basophils % (auto) 0.4 %; Eosinophils # (auto) 0.14 K/uL (0-0.5); Hematocrit (blood only) 23.5 % (37-47); Hemoglobin 8.1 g/dL (12.0-16.0); Immature Granulocytes # (auto) 0.03 K/uL (0.00-0.02); Immature Granulocytes % (auto) 0.4 %; Lymphocytes # (auto) 2.28 K/uL (1.2-3.4); Lymphocytes % (auto) 32.6 %; Mean Corpuscular Hemoglobin 32.5 pg (25-34); Mean Corpuscular Hgb Conc 34.5 g/dL (32-36); Mean Corpuscular Volume 94.4 fL (80-100); Mean Platelet Volume 9.8 fL (7.4-10.4); Monocytes # (auto) 0.45 K/uL (0.11-0.59); Monocytes % (auto) 6.4 %; Neutrophils # (auto) 4.06 K/uL (1.4-6.5); Neutrophils % (auto) 58.2 %; Nucleated RBC # (auto) 0.06 K/uL (0-0); Nucleated RBC % (auto) 0.9 %; Platelet Count 384 K/uL (130-400); RDW Coefficient of Variation 17.8 % (11.5-14.5); RDW Standard Deviation 60.4 fL (36.4-46.3); Red Blood Count 2.49 M/uL (4.2-5.4); White Blood Count 6.99 K/uL (4.8-10.8)
[2021-05-21 09:05] LABS: Anion Gap 6 (3-11); BUN Creatinine Ratio 19.6 (10-20); Blood Urea Nitrogen 10 mg/dl (6-23); Calcium 9.4 mg/dl (8.5-10.1); Carbon Dioxide 29 mmol/L (21-32); Chloride 100 mmol/L (98-107); Est GFR (African American) > 150.0 ml/min; Est GFR (Non-African American) 136.5 ml/min; Glucose 89 mg/dl (70-99(Fasting)); Sodium 135 mmol/L (136-145)
[2021-05-21] MEDS ORDERED: FIRST - Mouthwash BLM 119 ML PO PRN (09:09)
[2021-05-21] MEDS ORDERED: TRIAMCINOLONE ACET 0.1% CR 80 GM TUBE EXT ONE (09:10)
[2021-05-21] MEDS: oxyCODONE HCL IR 5 MG TAB (IMMEDIATE RELEASE) PO SCH ×4 (09:12→22:07)
[2021-05-21] MEDS: CHECK fentaNYL PATCH PLACEMENT SCH ×2 (09:17→16:11)
[2021-05-21] MEDS: ALUMINUM/MAGNESIUM/SIMETH (MAALOX MAX) 30 ML UDC PO SCH ×4 (09:17→16:10)
[2021-05-21] MEDS: HYDROXYUREA 500 MG CAP PO SCH ×2 (09:20→22:07)
[2021-05-21] MEDS: DULoxetine HCL 20 MG CAP PO SCH (09:21)
[2021-05-21] MEDS: PANTOprazole 40 MG TAB PO SCH ×2 (09:21→22:08)
[2021-05-21] MEDS: CHOLECALCIFEROL 5,000 UNITS 125 MCG TAB PO SCH (09:21)
[2021-05-21] MEDS: CEROVITE ADV FORMULA TAB PO SCH (09:21)
[2021-05-21] MEDS: FOLIC ACID 1 MG TAB PO SCH (09:21)
[2021-05-21] MEDS: FLUTICASONE PROPIONATE NA SPR 16 GM BTL SCH (09:21)
[2021-05-21] MEDS: FAMOTIDINE 20 MG TAB PO SCH ×2 (09:21→22:08)
[2021-05-21] MEDS: CYANOCOBALAMIN (B-12) 500 MCG TABLET PO SCH (09:21)
[2021-05-21] MEDS: EUCERIN CR 120 GM JAR EXT SCH ×4 (09:27→22:10)
[2021-05-21] MEDS: ONDANSETRON INJ 2 MG/ML 2 ML VIAL IV PRN (10:40)
[2021-05-21] MEDS: hydrOXYzine HCl 25 MG TAB PO SCH ×2 (17:53→22:07)
[2021-05-21] MEDS: ENOXAPARIN INJ 40 MG/0.4 ML SYR SQ SCH (22:09)
[2021-05-22] MEDS: CHECK fentaNYL PATCH PLACEMENT SCH ×4 (00:15→22:53)
[2021-05-22] MEDS: ACETAMINOPHEN 500 MG TAB PO SCH ×3 (06:04→22:08)
--- NOTE | 2021-05-22 07:13 | Hospitalist Progress Note ---
Date of Service May 22, 2021 Assessment & Plan (1) Sickle cell crisis: Plan: 20 yo F with H sickle cell anemia presenting with acute pain. Sickle cell crisis: -Hgb 8.7 on admission, drop to 7.3 next day requiring 2 units pRBCs. -Pain regimen- Toradol q6h PRN, Dilaudid q3h PRN, naloxone PRN -Fentanyl low dose patch 12mcg for extended release pain relief. -Oxycodone 10mg QID for short acting pain.. -Continue hydroxyurea 1000mg PO BID -No concern for acute chest at this time but will pursue CXR if symptoms worsen/evolve -d/c home pending pain control Constipation: -due to opioid pain regimen. -May be causing nausea/dizziness given persistence even with changing from Nucynta to fentanyl/oxycodone. -On bowel regimen of Mylanta 30ml ac and lactulose 30mg q1hr PRN. Vitamin D deficiency -Vitamin D level of 12.4 -Initiated ergocalciferol 50k units on 05/13, continue weekly for 8 weeks Vitamin B12 deficiency/Mouth sores -Patient with B12 level of 434, has few mouth ulcers and some chaffing at sides of lips. -Will give 1,000mcg Cyanocobalamin qAM. -Ordered one dose of triamcinolone topical for mouth sores, magic swizzle PRN for sore in mouth. Nasal congestion - Viral versus allergic etiology, likely allergic given good response to Flonase - Continue Flonase daily Depression/borderline personality disorder/anxiety -feeling worse anxiety today leading being more depressed. -Hesitant to ask for hydroxyzine for concern of being labeled as drug seeking by nurse -reassured and advised to ask for meds when needed. -Switched Hydroxyzine 25mg BID to QID prn anxiety. -continue duloxetine GERD (gastroesophageal reflux disease): - continue Protonix 40mg PO daily Psychogenic nonepileptic seizure: - Usually occurs with stressful events, no recent seizure - Continue reassurance, anxiety management, pain control Hyperbilirubinemia - Total bilirubin of 4.0 on admission likely due to current sickle cell crisis with red blood cell lysis, downtrending, currently 3 - Has chronically elevated bilirubin - No RUQ symptoms - Continue to monitor Diet: Regular DVT prophylaxis: Lovenox Disposition: Med/Surg CODE STATUS: Full code (2) Hyperbilirubinemia: (3) GERD (gastroesophageal reflux disease): (4) Depression: Admission and Anticipated Discharge Date Admission Date: May 08, 2021 Supervising Physician Co-Signing Physician Notes Resident Physician Supervision Note: I independently interviewed and examined the patient and verified the amaro history and physical, reviewed labs and image studies and agree with resident Dr. Carballo findings and care plan. Subjective No overnight events. James says she feels better today than she generally has been. She endorses feeling like the current pain regimen is working for her. She would like to see how she does with walking around since she has been mostly in her bed. Nausea and dizziness are still present but better. Denies any shortness of breath, fevers, chills. Review of Systems Review of Systems: as per subjective Physical Exam Constitutional: WD/WN, vitals as above Eyes: PERRL, conjunctivae normal, anicteric sclerae ENMT: mucous membranes moist Respiratory: normal respiratory effort, lungs clear to auscultation Cardiovascular: RRR, no murmur, no edema Results & Data Results & Data ([facility]) Vital Signs (Past 12 Hours) Vital Signs Temp Pulse Resp BP Pulse Ox 05/21/21 23:26 36.7 C 79 17 96/60 L 96 Resident Activity Tracking Resident Involvement: Resident Care Provided Care Provided: Adult Hospital Medicine (1) GERD (gastroesophageal reflux disease) Esophagitis presence: esophagitis presence not specified Qualified Code(s): K21.9 - Gastro-esophageal reflux disease without esophagitis
[2021-05-22 07:32] LABS: Mean Corpuscular Hgb Conc 33.2 g/dL (32-36); Mean Platelet Volume 9.9 fL (7.4-10.4); Nucleated RBC # (auto) 0.13 K/uL (0-0); Nucleated RBC % (auto) 1.6 %; Platelet Count 389 K/uL (130-400)
[2021-05-22 08:13] LABS: Basophils # (auto) 0.04 K/uL (0-0.2); Basophils % (auto) 0.5 %; Eosinophils # (auto) 0.13 K/uL (0-0.5); Eosinophils % (auto) 1.6 %; Hematocrit (blood only) 23.8 % (37-47); Hemoglobin 7.9 g/dL (12.0-16.0); Immature Granulocytes # (auto) 0.02 K/uL (0.00-0.02); Immature Granulocytes % (auto) 0.3 %; Lymphocytes % (auto) 41.5 %; Mean Corpuscular Hemoglobin 32.4 pg (25-34); Mean Corpuscular Volume 97.5 fL (80-100); Monocytes % (auto) 6.3 %; Neutrophils # (auto) 3.97 K/uL (1.4-6.5); Neutrophils % (auto) 49.8 %; Polychromasia 1+; RDW Coefficient of Variation 17.6 % (11.5-14.5); Red Blood Count 2.44 M/uL (4.2-5.4); Sickle Cells 1+; Target Cells 1+; White Blood Count 7.96 K/uL (4.8-10.8)
[2021-05-22] MEDS: HYDROmorphone INJ 0.5 MG/0.5 ML SYR IV PRN ×4 (08:23→19:27)
[2021-05-22] MEDS: ALUMINUM/MAGNESIUM/SIMETH (MAALOX MAX) 30 ML UDC PO SCH ×3 (08:23→16:04)
[2021-05-22] MEDS: HYDROXYUREA 500 MG CAP PO SCH ×2 (08:23→22:08)
[2021-05-22] MEDS: PANTOprazole 40 MG TAB PO SCH ×2 (08:24→22:07)
[2021-05-22] MEDS: hydrOXYzine HCl 25 MG TAB PO SCH ×4 (08:24→22:07)
[2021-05-22] MEDS: FOLIC ACID 1 MG TAB PO SCH (08:24)
[2021-05-22] MEDS: FAMOTIDINE 20 MG TAB PO SCH ×2 (08:25→22:07)
[2021-05-22] MEDS: CHOLECALCIFEROL 5,000 UNITS 125 MCG TAB PO SCH (08:25)
[2021-05-22] MEDS: DULoxetine HCL 20 MG CAP PO SCH (08:25)
[2021-05-22] MEDS: CYANOCOBALAMIN (B-12) 500 MCG TABLET PO SCH (08:25)
[2021-05-22] MEDS: CEROVITE ADV FORMULA TAB PO SCH (08:26)
[2021-05-22] MEDS: EUCERIN CR 120 GM JAR EXT SCH ×4 (08:26→22:09)
[2021-05-22] MEDS: FLUTICASONE PROPIONATE NA SPR 16 GM BTL SCH (08:26)
[2021-05-22] MEDS: oxyCODONE HCL IR 5 MG TAB (IMMEDIATE RELEASE) PO SCH ×4 (08:32→22:07)
[2021-05-22] MEDS ORDERED: TRIAMCINOLONE ACET 0.1% CR 80 GM TUBE EXT ONE (10:00)
[2021-05-22] MEDS: fentaNYL 25 MCG/HR TDSY TD SCH (16:08)
[2021-05-22] MEDS: ENOXAPARIN INJ 40 MG/0.4 ML SYR SQ SCH (22:12)
[2021-05-23] MEDS ORDERED: HYDROmorphone INJ 0.5 MG/0.5 ML SYR IV STA (00:04)
[2021-05-23] MEDS: diphenhydrAMINE Capsule 25 MG CAP PO PRN ×2 (00:22→23:08)
[2021-05-23] MEDS: ACETAMINOPHEN 500 MG TAB PO SCH ×3 (06:17→20:46)
[2021-05-23 06:44] LABS: Basophils # (auto) 0.03 K/uL (0-0.2); Basophils % (auto) 0.4 %; Eosinophils # (auto) 0.15 K/uL (0-0.5); Eosinophils % (auto) 2.2 %; Hematocrit (blood only) 22.3 % (37-47); Hemoglobin 7.6 g/dL (12.0-16.0); Immature Granulocytes # (auto) 0.01 K/uL (0.00-0.02); Immature Granulocytes % (auto) 0.1 %; Lymphocytes # (auto) 3.02 K/uL (1.2-3.4); Lymphocytes % (auto) 43.7 %; Mean Corpuscular Hgb Conc 34.1 g/dL (32-36); Mean Platelet Volume 9.8 fL (7.4-10.4); Monocytes # (auto) 0.51 K/uL (0.11-0.59); Monocytes % (auto) 7.4 %; Neutrophils # (auto) 3.19 K/uL (1.4-6.5); Neutrophils % (auto) 46.2 %; Nucleated RBC # (auto) 0.17 K/uL (0-0); Nucleated RBC % (auto) 2.4 %; Platelet Count 469 K/uL (130-400); RDW Coefficient of Variation 17.3 % (11.5-14.5); RDW Standard Deviation 59.9 fL (36.4-46.3); White Blood Count 6.91 K/uL (4.8-10.8)
[2021-05-23 07:20] LABS: Pappenheimer Bodies 1+; Polychromasia 1+; Target Cells 1+
[2021-05-23] MEDS ORDERED: HYDROmorphone INJ 0.5 MG/0.5 ML SYR IV PRN (08:17)
--- NOTE | 2021-05-23 08:26 | Hospitalist Progress Note ---
Date of Service May 23, 2021 Assessment & Plan (1) Sickle cell crisis: Plan: 20 yo F with [facility] sickle cell anemia presenting with acute pain. Sickle cell crisis: -Hgb 8.7 on admission, drop to 7.3 - s/p 2 units pRBCs. -Pain regimen- Toradol q6h PRN, Dilaudid q3h PRN, naloxone PRN -Fentanyl low dose patch 12mcg for extended release pain relief. -Oxycodone 10mg QID for short acting pain. -Continue hydroxyurea 1000mg PO BID -No concern for acute chest at this time but will pursue CXR if symptoms worsen/evolve -d/c home pending pain control Constipation: -due to opioid pain regimen. -May be causing nausea/dizziness given persistence even with changing from Nucynta to fentanyl/oxycodone. -On bowel regimen of Mylanta 30ml ac and lactulose 30mg q1hr PRN. Vitamin D deficiency -Vitamin D level of 12.4 -Initiated ergocalciferol 50k units on 05/13, continue weekly for 8 weeks Vitamin B12 deficiency/Angular cheilitis -Patient with B12 level of 434, has few mouth ulcers and some chaffing at sides of lips. -Will give 1,000mcg Cyanocobalamin qAM. -Given triamcinolone w/ little improvement, can consider antifungal. Nasal congestion - Viral versus allergic etiology, likely allergic given good response to Flonase - Continue Flonase daily Depression/borderline personality disorder/anxiety -feeling worse anxiety today leading being more depressed. -Hesitant to ask for hydroxyzine for concern of being labeled as drug seeking by nurse -reassured and advised to ask for meds when needed. -Switched Hydroxyzine 25mg BID to QID prn anxiety. -continue duloxetine Endorsing suicidial thoughts to her therapist -has been denying SI to medicine team -Get [facility] liason to evaluate GERD (gastroesophageal reflux disease): - continue Protonix 40mg PO daily Psychogenic nonepileptic seizure: - Usually occurs with stressful events, no recent seizure - Continue reassurance, anxiety management, pain control Hyperbilirubinemia - Total bilirubin of 4.0 on admission likely due to current sickle cell crisis with red blood cell lysis, downtrending, currently 3 - Has chronically elevated bilirubin - No RUQ symptoms - Continue to monitor Diet: Regular DVT prophylaxis: Lovenox Disposition: Med/Surg CODE STATUS: Full code (2) Hyperbilirubinemia: (3) GERD (gastroesophageal reflux disease): (4) Depression: Admission and Anticipated Discharge Date Admission Date: May 08, 2021 Supervising Physician Co-Signing Physician Notes Resident Physician Supervision Note: I independently interviewed and examined the patient and verified the amaro history and physical, reviewed labs and image studies and agree with resident Dr. Carballo findings and care plan. Subjective No overnight events. Feels her nausea and dizziness are better today. Didn't get the chance to walk around yesterday but would like to see how she does walking around today. She is still experiencing discomfort at sores at the corners of her mouth. The two doses of triamcinolone did not help decrease the size of the sores. She does endorse the magic swizzle helped with the sore on her tongue. Denies fevers, chills, shortness of breath. Review of Systems Review of Systems: as per subjective Physical Exam Constitutional: WD/WN, vitals as above Eyes: PERRL, conjunctivae normal, anicteric sclerae Respiratory: normal respiratory effort, lungs clear to auscultation Cardiovascular: RRR, no murmur, no edema Results & Data Results & Data ([facility]) Vital Signs (Past 12 Hours) Vital Signs Temp Pulse Pulse Resp BP Pulse Ox 05/23/21 07:21 36.3 C L 71 16 102/67 97 05/22/21 22:20 36.5 C 79 15 99/61 L 97 Resident Activity Tracking Resident Involvement: Resident Care Provided Care Provided: Adult Hospital Medicine (1) GERD (gastroesophageal reflux disease) Esophagitis presence: esophagitis presence not specified Qualified Code(s): K21.9 - Gastro-esophageal reflux disease without esophagitis
[2021-05-23] MEDS: HYDROmorphone INJ 0.5 MG/0.5 ML SYR IV PRN ×5 (10:34→23:03)
[2021-05-23] MEDS: ALUMINUM/MAGNESIUM/SIMETH (MAALOX MAX) 30 ML UDC PO SCH ×3 (10:40→16:47)
[2021-05-23] MEDS: CHECK fentaNYL PATCH PLACEMENT SCH ×3 (10:41→23:09)
[2021-05-23] MEDS: CHOLECALCIFEROL 5,000 UNITS 125 MCG TAB PO SCH (10:42)
[2021-05-23] MEDS: CYANOCOBALAMIN (B-12) 500 MCG TABLET PO SCH (10:42)
[2021-05-23] MEDS: DULoxetine HCL 20 MG CAP PO SCH (10:43)
[2021-05-23] MEDS: FLUTICASONE PROPIONATE NA SPR 16 GM BTL SCH (10:44)
[2021-05-23] MEDS: FAMOTIDINE 20 MG TAB PO SCH ×2 (10:44→20:48)
[2021-05-23] MEDS: FOLIC ACID 1 MG TAB PO SCH (10:45)
[2021-05-23] MEDS: HYDROXYUREA 500 MG CAP PO SCH ×2 (10:45→20:48)
[2021-05-23] MEDS: hydrOXYzine HCl 25 MG TAB PO SCH ×4 (10:46→20:48)
[2021-05-23] MEDS: CEROVITE ADV FORMULA TAB PO SCH (10:47)
[2021-05-23] MEDS: PANTOprazole 40 MG TAB PO SCH ×2 (10:47→20:48)
[2021-05-23] MEDS: EUCERIN CR 120 GM JAR EXT SCH ×4 (10:52→20:47)
[2021-05-23] MEDS: oxyCODONE HCL IR 5 MG TAB (IMMEDIATE RELEASE) PO SCH ×4 (11:05→20:47)
[2021-05-23] MEDS: HYDROCORTISONE 1% CRM 30 GM TUBE EXT SCH (20:47)
[2021-05-23] MEDS: ENOXAPARIN INJ 40 MG/0.4 ML SYR SQ SCH (20:47)
[2021-05-24] MEDS: HYDROmorphone INJ 0.5 MG/0.5 ML SYR IV PRN ×6 (02:22→23:15)
[2021-05-24] MEDS: ACETAMINOPHEN 500 MG TAB PO SCH ×3 (06:17→21:51)
--- NOTE | 2021-05-24 07:27 | Hospitalist Progress Note ---
Date of Service May 24, 2021 Assessment & Plan (1) Sickle cell crisis: Plan: 20 yo F with H sickle cell anemia presenting with acute pain. Sickle cell crisis: -Hgb 8.7 on admission, drop to 7.3 - s/p 2 units pRBCs. -Pain regimen- Toradol q6h PRN, Dilaudid q3h PRN, naloxone PRN -Fentanyl low dose patch 12mcg for extended release pain relief. -Oxycodone 10mg QID for short acting pain. -Continue hydroxyurea 1000mg PO BID -No concern for acute chest at this time but will pursue CXR if symptoms worsen/evolve -d/c home pending pain control Constipation: -due to opioid pain regimen. -May be causing nausea/dizziness given persistence even with changing from Nucynta to fentanyl/oxycodone. -On bowel regimen of Mylanta 30ml ac and lactulose 30mg q1hr PRN. Vitamin D deficiency -Vitamin D level of 12.4 -Initiated ergocalciferol 50k units on 05/13, continue weekly for 8 weeks Vitamin B12 deficiency/Angular cheilitis -Patient with B12 level of 434, has few mouth ulcers and some chaffing at sides of lips. -Will give 1,000mcg Cyanocobalamin qAM. -Given triamcinolone w/ little improvement, can consider antifungal. Nasal congestion - Continue Flonase daily Depression/borderline personality disorder/anxiety -feeling worse anxiety today leading being more depressed. -Hesitant to ask for hydroxyzine for concern of being labeled as drug seeking by nurse -reassured and advised to ask for meds when needed. -Switched Hydroxyzine 25mg BID to QID prn anxiety. -continue duloxetine Endorsing suicidial thoughts to her therapist -has been denying SI to medicine team -Get [facility] liason consulted: -somewhat depressed, fleeting thoughts of w/o suicidal ideation or intent. -looking forward to graduation, friends support her. -Telehealth appointment w/ [facility] tomorrow. GERD (gastroesophageal reflux disease): - continue Protonix 40mg PO daily Psychogenic nonepileptic seizure: - Usually occurs with stressful events, no recent seizure - Continue reassurance, anxiety management, pain control Hyperbilirubinemia - Total bilirubin of 4.0 on admission likely due to current sickle cell crisis with red blood cell lysis, downtrending, currently 3 - Has chronically elevated bilirubin - No RUQ symptoms - Continue to monitor Diet: Regular DVT prophylaxis: Lovenox Disposition: Med/Surg CODE STATUS: Full code (2) Hyperbilirubinemia: (3) GERD (gastroesophageal reflux disease): (4) Depression: Admission and Anticipated Discharge Date Admission Date: May 08, 2021 Supervising Physician Co-Signing Physician Notes Resident Physician Supervision Note: I independently interviewed and examined the patient and verified the amaro history and physical, reviewed labs and image studies and agree with resident Dr. Carballo findings and care plan. Subjective No overnight events. Went to patient in AM, sleeping w/o issue. Went to patient in afternoon, although not a good time to talk. Physical Exam Constitutional: WD/WN, vitals as above Eyes: PERRL, conjunctivae normal, anicteric sclerae Neck: trachea midline, no thyromegaly Respiratory: normal respiratory effort Results & Data Results & Data ([facility]) Vital Signs (Past 12 Hours) Vital Signs Temp Pulse Resp BP Pulse Ox 05/23/21 22:54 36.9 C 63 14 100/64 96 Resident Activity Tracking Resident Involvement: Resident Care Provided Care Provided: Adult Hospital Medicine (1) GERD (gastroesophageal reflux disease) Esophagitis presence: esophagitis presence not specified Qualified Code(s): K21.9 - Gastro-esophageal reflux disease without esophagitis
[2021-05-24] MEDS: ALUMINUM/MAGNESIUM/SIMETH (MAALOX MAX) 30 ML UDC PO SCH ×3 (10:54→17:17)
[2021-05-24] MEDS: CHECK fentaNYL PATCH PLACEMENT SCH ×3 (10:54→23:12)
[2021-05-24] MEDS: CHOLECALCIFEROL 5,000 UNITS 125 MCG TAB PO SCH (12:20)
[2021-05-24] MEDS: DULoxetine HCL 20 MG CAP PO SCH (12:21)
[2021-05-24] MEDS: CYANOCOBALAMIN (B-12) 500 MCG TABLET PO SCH (12:21)
[2021-05-24] MEDS: FOLIC ACID 1 MG TAB PO SCH (12:22)
[2021-05-24] MEDS: FAMOTIDINE 20 MG TAB PO SCH ×2 (12:22→21:52)
[2021-05-24] MEDS: FLUTICASONE PROPIONATE NA SPR 16 GM BTL SCH (12:22)
[2021-05-24] MEDS: HYDROCORTISONE 1% CRM 30 GM TUBE EXT SCH ×2 (12:23→21:51)
[2021-05-24] MEDS: HYDROXYUREA 500 MG CAP PO SCH ×2 (12:23→21:53)
[2021-05-24] MEDS: CEROVITE ADV FORMULA TAB PO SCH (12:25)
[2021-05-24] MEDS: PANTOprazole 40 MG TAB PO SCH ×2 (12:25→21:54)
[2021-05-24] MEDS: hydrOXYzine HCl 25 MG TAB PO SCH ×4 (12:32→21:54)
[2021-05-24] MEDS: EUCERIN CR 120 GM JAR EXT SCH ×4 (12:32→21:52)
[2021-05-24] MEDS: oxyCODONE HCL IR 5 MG TAB (IMMEDIATE RELEASE) PO SCH ×4 (12:34→21:51)
[2021-05-24] MEDS ORDERED: CETIRIZINE HCL 10 MG TABLET PO ONE (14:10)
[2021-05-24] MEDS: ENOXAPARIN INJ 40 MG/0.4 ML SYR SQ SCH (21:51)
[2021-05-25] MEDS: HYDROmorphone INJ 0.5 MG/0.5 ML SYR IV PRN ×6 (02:11→21:29)
[2021-05-25] MEDS: ACETAMINOPHEN 500 MG TAB PO SCH ×3 (06:03→21:26)
--- NOTE | 2021-05-25 08:05 | Hospitalist Progress Note ---
Date of Service May 25, 2021 Assessment & Plan (1) Sickle cell crisis: Plan: 20 yo F with [facility] sickle cell anemia presenting with acute pain. Sickle cell crisis: -Hgb 8.7 on admission, drop to 7.3 - s/p 2 units pRBCs. -Pain regimen- Toradol q6h PRN, Dilaudid q3h PRN, naloxone PRN -Fentanyl low dose patch 12mcg for extended release pain relief. -Oxycodone 10mg QID for short acting pain. -Pain management consulted - fentanyl + oxy fine for now but most likely not ferry terminal agent solution. -Continue hydroxyurea 1000mg PO BID -No concern for acute chest at this time but will pursue CXR if symptoms worsen/evolve -d/c home pending pain control Constipation: -due to opioid pain regimen. -May be causing nausea/dizziness given persistence even with changing from Nucynta to fentanyl/oxycodone. -On bowel regimen of Mylanta 30ml ac and lactulose 30mg q1hr PRN. Vitamin D deficiency -Vitamin D level of 12.4 -Initiated ergocalciferol 50k units on 05/13, continue weekly for 8 weeks Vitamin B12 deficiency/Angular cheilitis -Patient with B12 level of 434, has few mouth ulcers and some chaffing at sides of lips. -Will give 1,000mcg Cyanocobalamin qAM. -Given triamcinolone w/ little improvement, can consider antifungal. Nasal congestion - Continue Flonase daily Depression/borderline personality disorder/anxiety -feeling worse anxiety today leading being more depressed. -Hesitant to ask for hydroxyzine for concern of being labeled as drug seeking by nurse -reassured and advised to ask for meds when needed. -Switched Hydroxyzine 25mg BID to QID prn anxiety. -continue duloxetine Endorsing suicidial thoughts to her therapist -has been denying SI to medicine team -Get [facility] liason consulted: -somewhat depressed, fleeting thoughts of w/o suicidal ideation or intent. -looking forward to graduation, friends support her. -Telehealth appointment w/ [facility] today. -[facility] note 05/25 reviewed GERD (gastroesophageal reflux disease): - continue Protonix 40mg PO daily Psychogenic nonepileptic seizure: - Usually occurs with stressful events, no recent seizure - Continue reassurance, anxiety management, pain control Hyperbilirubinemia - Total bilirubin of 4.0 on admission likely due to current sickle cell crisis with red blood cell lysis, downtrending, currently 3 - Has chronically elevated bilirubin - No RUQ symptoms - Continue to monitor Diet: Regular DVT prophylaxis: Lovenox Disposition: Med/Surg CODE STATUS: Full code (2) Hyperbilirubinemia: (3) GERD (gastroesophageal reflux disease): (4) Depression: Admission and Anticipated Discharge Date Admission Date: May 08, 2021 Supervising Physician Co-Signing Physician Notes Resident Physician Supervision Note: I independently interviewed and examined the patient and verified the amaro history and physical, reviewed labs and image studies and agree with resident Dr. Carballo findings and care plan. Subjective No overnight events. Patient was up and walking today with me through the halls. Patient having pain at the upper mid legs, lower back with walking. She was able to walk the length of the unit with a few breaks. Denies shortness of breath, fevers, chills. Review of Systems Review of Systems: as per subjective Physical Exam Constitutional: WD/WN, vitals as above Eyes: PERRL, conjunctivae normal, anicteric sclerae Neck: trachea midline, no thyromegaly Respiratory: normal respiratory effort Results & Data Results & Data ([facility]) Vital Signs (Past 12 Hours) Vital Signs Temp Pulse Pulse Resp BP BP Pulse Ox 05/25/21 07:25 36.6 C 81 16 96/59 L 98 05/24/21 21:26 36.7 C 90 15 100/64 97 Resident Activity Tracking Resident Involvement: Resident Care Provided Care Provided: Adult Hospital Medicine (1) GERD (gastroesophageal reflux disease) Esophagitis presence: esophagitis presence not specified Qualified Code(s): K21.9 - Gastro-esophageal reflux disease without esophagitis
[2021-05-25] MEDS: hydrOXYzine HCl 25 MG TAB PO SCH ×4 (09:15→21:27)
[2021-05-25] MEDS: CHECK fentaNYL PATCH PLACEMENT SCH ×2 (10:35→16:00)
[2021-05-25] MEDS: ALUMINUM/MAGNESIUM/SIMETH (MAALOX MAX) 30 ML UDC PO SCH ×3 (10:35→17:32)
[2021-05-25] MEDS: CHOLECALCIFEROL 5,000 UNITS 125 MCG TAB PO SCH (10:36)
[2021-05-25] MEDS: CYANOCOBALAMIN (B-12) 500 MCG TABLET PO SCH (10:36)
[2021-05-25] MEDS: DULoxetine HCL 20 MG CAP PO SCH (10:37)
[2021-05-25] MEDS: FAMOTIDINE 20 MG TAB PO SCH ×2 (10:37→21:26)
[2021-05-25] MEDS: EUCERIN CR 120 GM JAR EXT SCH ×4 (10:37→21:25)
[2021-05-25] MEDS: FOLIC ACID 1 MG TAB PO SCH (10:38)
[2021-05-25] MEDS: FLUTICASONE PROPIONATE NA SPR 16 GM BTL SCH (10:38)
[2021-05-25] MEDS: HYDROCORTISONE 1% CRM 30 GM TUBE EXT SCH ×2 (10:39→21:27)
[2021-05-25] MEDS: HYDROXYUREA 500 MG CAP PO SCH ×2 (10:39→21:26)
[2021-05-25] MEDS: CEROVITE ADV FORMULA TAB PO SCH (10:39)
[2021-05-25] MEDS: PANTOprazole 40 MG TAB PO SCH ×2 (10:40→21:26)
[2021-05-25] MEDS: oxyCODONE HCL IR 5 MG TAB (IMMEDIATE RELEASE) PO SCH ×4 (10:45→22:30)
[2021-05-25] MEDS: ONDANSETRON INJ 2 MG/ML 2 ML VIAL IV PRN (12:26)
--- NOTE | 2021-05-25 14:08 | Pain Management Consultation ---
Date of Consultation May 25, 2021 Assessment & Plan (1) Generalized pain: (2) Sickle cell crisis: We did have a discussion regarding her pain regimen. She is currently on Fentanyl Patch 12 mcg/hr and Oxycodone 10mg QID. There is IV Dilaudid PRN breakthrough pain and has used 3mg IV over the past 24 hours. Patient states that the current regimen of Fentanyl patch and oral Oxycodone is helping her chronic pain. The IV Dilaudid is providing relief of the severe "flare up" pain. She is satisfied with the current regimen. I would recommend discharge on the current Fentanyl and Oxycodone for only a short period of time. There is concern for opioid tolerance and addiction with these frequent long hospital stays. Thank you for the consultation. History of Present Illness Attending Physician: Caty Serna MD History of Present Illness Ms. Early is a 20-year-old female with history of sickle cell anemia who was admitted once again on 05/08/21 with acute pain crises. Pain is described as a significant deep aching pain in her knees, low back, and arms. She denies any radicular pattern to her pain complaints. Currently she is utilizing Fentanyl 25mcg/hr, Oxycodone 10mg QID, and IV Dilaudid 0.5mg/3 hours PRN. Patient indicates that her pain is typical in location and characteristic as it has been chronically associated with her sickle cell disease.There is some constipation with current medication regimen and order Miralax and Lactulose for bowel regimen which is beneficial. Overall the patient states that she does not wish to increase the current medications as she does find the medication regimen slightly effective. Plan of care discussed with Dr. Monica Murguia. Pain Assessment Full Body Front + Back: 1. 2. 3. 4. 5. Allergies Allergy/AdvReac Type Severity Reaction Status Date / Time No Known Allergies Allergy Verified 05/08/21 15:02 Home Medications Medication Instructions Recorded Confirmed Type naloxone 4 mg/actuation nasal 1 spray INTRANASAL .Q3 MINUTES PRN 09/04/20 05/08/21 History spray (Narcan) tapentadol 50 mg tablet (Nucynta) 50 mg PO BID 01/16/21 05/08/21 History duloxetine 20 mg capsule,delayed 20 mg PO DAILY 01/31/21 05/08/21 History release folic acid 1 mg tablet 2 mg PO DAILY 01/31/21 05/08/21 History hydroxyurea 500 mg capsule 1,000 mg PO BID 01/31/21 05/08/21 History pantoprazole 40 mg tablet,delayed 40 mg PO DAILY 01/31/21 05/08/21 History release Patient History Medical History Acute leg pain Borderline personality disorder Chest pain Chronic pain Depression with suicidal ideation Murmur, cardiac Nausea Overdose Overdose Person under investigation for COVID-19 Pneumonia Pseudoseizures Seizure-like activity Sickle cell anemia Sickle cell crisis Suicidal ideation Suicide gesture Surgical History No pertinent past surgical history Family History Mother Hypertension Father Ulcer Other Family history non-contributory Social History Smoking Status: Never smoker Tobacco Type: Cigarettes Second Hand Exposure: Yes; Hx Alcohol Use: Yes Alcohol type: other Hx Substance Use: No Preferred Language: Polish Communication Ability: Effective Kindergarten Tutor Required: No Beliefs That Will Affect Care: None marital status: Single Current Living Situation: Alone Current Living Situation Comment: Pt states she lives with roommates 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 current occupation: [employer] major Other Information That Helps Us Care for You: No Feels Safe at Home: Yes Safety Concerns: Feels Safe At This Time Assistive Devices: None Physical Exam Physical Exam: GENERAL: This is a 20 year old female that does not appear in any acute distress with positional changes in the hospital bed. HEAD/FACE: Normocephalic and atraumatic. EYES: No drainage or conjunctival injection. ENT: Nose without bleeding or discharge. Oral mucosa moist. NECK: Full ROM without apparent pain. No swelling or masses noted. RESPIRATORY: Patient with unlabored breathing. No signs of respiratory distress. CHEST/AXILLA: Chest movement symmetrical. No deformities noted. ABDOMEN/GI: No distension BACK: Moves without difficulty SKIN: [place], warm and dry. No rash noted. MS/EXTREMITY: No swelling, no deformities. Moving extremities appropriately. NEURO: Alert and appears oriented. Speech is fluent. Cranial Nerves are grossly intact. PSYCH: Alert, pleasant, affect is calm
[2021-05-25] MEDS: fentaNYL 25 MCG/HR TDSY TD SCH (17:29)
[2021-05-25] MEDS: ENOXAPARIN INJ 40 MG/0.4 ML SYR SQ SCH (22:31)
[2021-05-26] MEDS: HYDROmorphone INJ 0.5 MG/0.5 ML SYR IV PRN ×7 (00:59→23:00)
[2021-05-26] MEDS: CHECK fentaNYL PATCH PLACEMENT SCH ×4 (00:59→23:28)
[2021-05-26] MEDS: ACETAMINOPHEN 500 MG TAB PO SCH ×3 (06:35→21:12)
[2021-05-26] MEDS: ALUMINUM/MAGNESIUM/SIMETH (MAALOX MAX) 30 ML UDC PO SCH ×3 (08:47→16:33)
[2021-05-26] MEDS: CEROVITE ADV FORMULA TAB PO SCH (08:47)
[2021-05-26] MEDS: PANTOprazole 40 MG TAB PO SCH ×2 (08:47→21:12)
[2021-05-26] MEDS: CYANOCOBALAMIN (B-12) 500 MCG TABLET PO SCH (08:48)
[2021-05-26] MEDS: DULoxetine HCL 20 MG CAP PO SCH (08:48)
[2021-05-26] MEDS: FOLIC ACID 1 MG TAB PO SCH (08:48)
[2021-05-26] MEDS: HYDROXYUREA 500 MG CAP PO SCH ×2 (08:48→21:13)
[2021-05-26] MEDS: CHOLECALCIFEROL 5,000 UNITS 125 MCG TAB PO SCH (08:48)
[2021-05-26] MEDS: FAMOTIDINE 20 MG TAB PO SCH ×2 (08:48→21:12)
[2021-05-26] MEDS: hydrOXYzine HCl 25 MG TAB PO SCH ×4 (08:48→21:13)
[2021-05-26] MEDS: HYDROCORTISONE 1% CRM 30 GM TUBE EXT SCH ×2 (08:49→21:13)
[2021-05-26] MEDS: EUCERIN CR 120 GM JAR EXT SCH ×4 (08:50→21:13)
[2021-05-26] MEDS: FLUTICASONE PROPIONATE NA SPR 16 GM BTL SCH (08:50)
[2021-05-26] MEDS: oxyCODONE HCL IR 5 MG TAB (IMMEDIATE RELEASE) PO SCH ×4 (09:52→21:12)
--- NOTE | 2021-05-26 11:04 | Hospitalist Progress Note ---
Date of Service May 26, 2021 Assessment & Plan (1) Sickle cell crisis: Plan: 20 yo F with H sickle cell anemia presenting with acute pain. Sickle cell crisis: -Hgb 8.7 on admission, drop to 7.3 - s/p 2 units pRBCs. Hgb 7.6 on on 05/23 -Pain regimen -Toradol q6h PRN, Dilaudid q3h PRN, naloxone PRN -Nucynta discontinued -Currently fentanyl patch 25mcg for extended release pain relief -Oxycodone 10mg QID for short acting pain. 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 -Continue hydroxyurea 1000mg PO BID -No concern for acute chest at this time but will pursue CXR if symptoms worsen/evolve -D/c home once pain controlled on adequate regimen Constipation: -Likely secondary to opioid adverse effect -Expected to improve with switch from Nucynta to fentanyl/oxycodone. -Continue bowel regimen of Mylanta 30ml ac and lactulose 30mg q1hr PRN. Vitamin D deficiency -Vitamin D level of 12.4 -Ergocalciferol 50k units initiated on 05/13, continue weekly for 8 weeks Vitamin B12 deficiency/Angular cheilitis -Patient with B12 level of 434, has few mouth ulcers and some chaffing at sides of lips. -Continue 1,000mcg cyanocobalamin qAM. -Given triamcinolone w/ little improvement, can consider antifungal if persistent Nasal congestion -Continue Flonase daily -Persistent nasal congestion has increased pt anxiety- reassurance provided, also ordered RVP and urine GC per patient request and for her own stated peace of mind Depression/borderline personality disorder/anxiety -Anxiety slightly decreased from day prior, also less depressive symptoms -Hesitant to ask for hydroxyzine for concern of being labeled as drug seeking by nurse -reassured and advised to ask for meds when needed. -Continue hydroxyzine 25mg QID prn anxiety. -Continue duloxetine Endorsing suicidial thoughts to her therapist -has been denying SI to medicine team -[facility] liaison consulted: -somewhat depressed, fleeting thoughts of w/o suicidal ideation or intent. -looking forward to graduation, friends support her. -Telehealth appointment w/ [facility] on 05/25 -U note 05/25 reviewed -More upbeat and looking forward towards her goal for discharge home GERD (gastroesophageal reflux disease): - Continue Protonix 40mg PO daily Psychogenic nonepileptic seizure: - Usually occurs with stressful events, no recent seizure - Continue reassurance, anxiety management, pain control Hyperbilirubinemia - Total bilirubin of 4.0 on admission likely due to current sickle cell crisis with red blood cell lysis, downtrending - Has chronically elevated bilirubin - No RUQ symptoms - Continue to monitor Diet: Regular DVT prophylaxis: Lovenox Disposition: Med/Surg CODE STATUS: Full code (2) Hyperbilirubinemia: (3) GERD (gastroesophageal reflux disease): (4) Depression: Admission and Anticipated Discharge Date Admission Date: May 08, 2021 Supervising Physician Co-Signing Physician Notes Resident Physician Supervision Note: I independently interviewed and examined the patient and verified the amaro history and physical, reviewed labs and image studies and agree with resident Dr. Hernandez findings and care plan. Subjective No acute events overnight. Pt continues to report generalized pain, still some dull chest pain and in her shoulders and L leg. However, the pain responds to medication and current regimen has kept her overall pain tolerable at 5/10 severity. No dyspnea or fevers. She reports some increased anxiety about her persistent nasal congestion and is requesting an expanded workup, specifically asking for gonorrhea testing. She does state it is for her own peace of mind. Review of Systems Review of Systems: as per subjective Physical Exam Constitutional: WD/WN, vitals as above Eyes: PERRL, conjunctivae normal, anicteric sclerae Neck: trachea midline, no thyromegaly normal visual inspection Respiratory: normal respiratory effort, lungs clear to auscultation normal respiratory effort Cardiovascular: RRR, no murmur, no edema Gastrointestinal (Abdomen): Inspection/Auscultation: abdomen normal to inspection Percussion/Palpation: abdomen soft Skin: no rashes, warm and dry Neurologic: moves all extremities Lymphatic: no cervical lymphadenopathy Results & Data Results & Data ([facility]) Vital Signs (Past 12 Hours) Vital Signs Temp Pulse Pulse Resp BP Pulse Ox 05/26/21 07:33 37 C 70 12 90/52 L 92 05/25/21 23:14 36.8 C 81 18 99/56 L 98 Resident Activity Tracking Resident Involvement: Resident Care Provided Care Provided: Adult Hospital Medicine (1) GERD (gastroesophageal reflux disease) Esophagitis presence: esophagitis presence not specified Qualified Code(s): K21.9 - Gastro-esophageal reflux disease without esophagitis
[2021-05-26] MEDS: ONDANSETRON INJ 2 MG/ML 2 ML VIAL IV PRN ×2 (13:11→23:00)
[2021-05-26 15:46] LABS: Influenza A virus by PCR Negative (Neg); Influenza B virus by PCR Negative (Neg); RSV by PCR Negative (Neg); SARS CoV2 RNA(COVID-19) InHosp NEGATIVE (Negative)
[2021-05-26] MEDS: ENOXAPARIN INJ 40 MG/0.4 ML SYR SQ SCH (21:13)
[2021-05-27] MEDS: HYDROmorphone INJ 0.5 MG/0.5 ML SYR IV PRN ×7 (01:23→23:30)
[2021-05-27] MEDS: diphenhydrAMINE Capsule 25 MG CAP PO PRN (01:23)
[2021-05-27] MEDS: ACETAMINOPHEN 500 MG TAB PO SCH ×3 (04:49→21:46)
[2021-05-27 08:27] LABS: Mean Corpuscular Hgb Conc 34.7 g/dL (32-36); Mean Platelet Volume 9.1 fL (7.4-10.4); Platelet Count 551 K/uL (130-400)
[2021-05-27] MEDS: hydrOXYzine HCl 25 MG TAB PO SCH ×4 (08:35→20:34)
[2021-05-27] MEDS: DULoxetine HCL 20 MG CAP PO SCH (08:35)
[2021-05-27] MEDS: FOLIC ACID 1 MG TAB PO SCH (08:35)
[2021-05-27] MEDS: HYDROXYUREA 500 MG CAP PO SCH ×2 (08:36→20:33)
[2021-05-27] MEDS: PANTOprazole 40 MG TAB PO SCH ×2 (08:36→20:34)
[2021-05-27] MEDS: CEROVITE ADV FORMULA TAB PO SCH (08:36)
[2021-05-27] MEDS: CYANOCOBALAMIN (B-12) 500 MCG TABLET PO SCH (08:36)
[2021-05-27] MEDS: CHOLECALCIFEROL 5,000 UNITS 125 MCG TAB PO SCH (08:36)
[2021-05-27] MEDS: FAMOTIDINE 20 MG TAB PO SCH ×2 (08:36→20:34)
[2021-05-27] MEDS: CHECK fentaNYL PATCH PLACEMENT SCH ×3 (08:37→23:33)
[2021-05-27] MEDS: ALUMINUM/MAGNESIUM/SIMETH (MAALOX MAX) 30 ML UDC PO SCH ×3 (08:37→16:05)
[2021-05-27] MEDS: FLUTICASONE PROPIONATE NA SPR 16 GM BTL SCH (08:38)
[2021-05-27] MEDS: EUCERIN CR 120 GM JAR EXT SCH ×4 (08:38→20:35)
[2021-05-27] MEDS: HYDROCORTISONE 1% CRM 30 GM TUBE EXT SCH ×2 (08:39→20:33)
[2021-05-27 08:54] LABS: Anion Gap 4 (3-11); Blood Urea Nitrogen 7 mg/dl (6-23); Calcium 9.1 mg/dl (8.5-10.1); Carbon Dioxide 31 mmol/L (21-32); Chloride 101 mmol/L (98-107); Est GFR (African American) > 150.0 ml/min; Est GFR (Non-African American) 133.9 ml/min; Glucose 82 mg/dl (70-99(Fasting)); Potassium 3.9 mmol/L (3.5-5.1); Sodium 136 mmol/L (136-145)
[2021-05-27 08:56] LABS: Hematocrit (blood only) 21.9 % (37-47); Hemoglobin 7.6 g/dL (12.0-16.0); Mean Corpuscular Volume 100.9 fL (80-100); Nucleated RBC # (auto) 0.95 K/uL (0-0); RDW Coefficient of Variation 20.4 % (11.5-14.5); RDW Standard Deviation 62.1 fL (36.4-46.3); Red Blood Count 2.17 M/uL (4.2-5.4); White Blood Count 6.76 K/uL (4.8-10.8)
--- NOTE | 2021-05-27 09:56 | Hospitalist Progress Note ---
Date of Service May 27, 2021 Assessment & Plan (1) Sickle cell crisis: Plan: 20 yo F with H sickle cell anemia presenting with acute pain. Sickle cell crisis: -Hgb 8.7 on admission, drop to 7.3 - s/p 2 units pRBCs. Hgb 7.6 on 05/27. -Pain regimen -Toradol q6h PRN, Dilaudid q3h PRN, naloxone PRN -Nucynta discontinued -Currently fentanyl patch 25mcg for extended release pain relief -Oxycodone 10mg QID for short acting pain -Pain management consulted - fentanyl + oxycodone fine for now but most likely not alf solution. -Continue hydroxyurea 1000mg PO BID -No concern for acute chest at this time but will pursue CXR if symptoms worsen/evolve -D/c home once pain controlled on adequate regimen Constipation: -secondary to opioid adverse effect -Continue bowel regimen of Mylanta 30ml ac and lactulose 30mg q1hr PRN. Vitamin D deficiency -Vitamin D level of 12.4 -Ergocalciferol 50k units initiated on 05/13, continue weekly for 8 weeks Vitamin B12 deficiency/Angular cheilitis -Patient with B12 level of 434, has few mouth ulcers and some chaffing at sides of lips. -Continue 1,000mcg cyanocobalamin qAM. -Given triamcinolone w/ little improvement, can consider antifungal if persistent Nasal congestion -Continue Flonase daily -Persistent nasal congestion has increased pt anxiety -Reassurance provided -Urine GC RNA pending -COVID/flu/RSV negative Depression/borderline personality disorder/anxiety -Anxiety further decreased from day prior, also less depressive symptoms -Hesitant to ask for hydroxyzine for concern of being labeled as drug seeking by nurse -reassured and advised to ask for meds when needed. -Continue hydroxyzine 25mg QID prn anxiety. -Continue duloxetine Endorsing suicidial thoughts to her therapist -has been denying SI to medicine team -[facility] liaison consulted: -somewhat depressed, fleeting thoughts of w/o suicidal ideation or intent. -looking forward to graduation, friends support her. -Telehealth appointment w/ [facility] on 05/25 -[facility] liason following. will ask them to follow again on 05/28 GERD (gastroesophageal reflux disease): - Continue Protonix 40mg PO daily Psychogenic nonepileptic seizure: - Usually occurs with stressful events, no recent seizure - Continue reassurance, anxiety management, pain control Hyperbilirubinemia - Total bilirubin of 4.0 on admission likely due to current sickle cell crisis with red blood cell lysis, downtrending - Has chronically elevated bilirubin - No RUQ symptoms - Continue to monitor Diet: Regular DVT prophylaxis: Lovenox Disposition: Med/Surg CODE STATUS: Full code (2) Hyperbilirubinemia: (3) GERD (gastroesophageal reflux disease): (4) Depression: Admission and Anticipated Discharge Date Admission Date: May 08, 2021 Supervising Physician Co-Signing Physician Notes Resident Physician Supervision Note: I independently interviewed and examined the patient and verified the amaro history and physical, reviewed labs and image studies and agree with resident Dr. Hernandez findings and care plan. Subjective No acute events overnight. Still receiving Dilaudid PRN every 3 hours. Reports generalized pain is slightly decreased to 7/10 today compared to 8/10 on day prior. No other acute complaints at present. Review of Systems Review of Systems: Per Subjective Physical Exam Constitutional: WD/WN, vitals as above Eyes: PERRL, conjunctivae normal, anicteric sclerae Neck: trachea midline, no thyromegaly normal visual inspection Respiratory: normal respiratory effort, lungs clear to auscultation normal respiratory effort Cardiovascular: RRR, no murmur, no edema Gastrointestinal (Abdomen): Inspection/Auscultation: abdomen normal to inspection Percussion/Palpation: abdomen soft Skin: no rashes, warm and dry Neurologic: moves all extremities Lymphatic: no cervical lymphadenopathy Results & Data Results & Data ([facility]) Vital Signs (Past 12 Hours) Vital Signs Temp Pulse Pulse Resp BP Pulse Ox 05/27/21 07:27 37.2 C 87 18 99/61 L 99 05/26/21 23:15 36.6 C 84 17 100/64 96 Resident Activity Tracking Resident Involvement: Resident Care Provided Care Provided: Adult Hospital Medicine (1) GERD (gastroesophageal reflux disease) Esophagitis presence: esophagitis presence not specified Qualified Code(s): K21.9 - Gastro-esophageal reflux disease without esophagitis
[2021-05-27] MEDS: oxyCODONE HCL IR 5 MG TAB (IMMEDIATE RELEASE) PO SCH ×4 (10:15→21:46)
[2021-05-27] MEDS: ENOXAPARIN INJ 40 MG/0.4 ML SYR SQ SCH (21:46)
[2021-05-28] MEDS: HYDROmorphone INJ 0.5 MG/0.5 ML SYR IV PRN ×7 (02:39→23:57)
[2021-05-28] MEDS: ACETAMINOPHEN 500 MG TAB PO SCH ×3 (06:05→20:51)
[2021-05-28] MEDS: ALUMINUM/MAGNESIUM/SIMETH (MAALOX MAX) 30 ML UDC PO SCH ×3 (08:51→16:23)
[2021-05-28] MEDS: CHOLECALCIFEROL 5,000 UNITS 125 MCG TAB PO SCH (08:52)
[2021-05-28] MEDS: CHECK fentaNYL PATCH PLACEMENT SCH ×3 (08:52→23:14)
[2021-05-28] MEDS: DULoxetine HCL 20 MG CAP PO SCH (08:53)
[2021-05-28] MEDS: CYANOCOBALAMIN (B-12) 500 MCG TABLET PO SCH (08:53)
[2021-05-28] MEDS: EUCERIN CR 120 GM JAR EXT SCH ×4 (08:54→20:51)
[2021-05-28] MEDS: FAMOTIDINE 20 MG TAB PO SCH ×2 (08:54→20:51)
[2021-05-28] MEDS: FLUTICASONE PROPIONATE NA SPR 16 GM BTL SCH (08:54)
[2021-05-28] MEDS: FOLIC ACID 1 MG TAB PO SCH (08:55)
[2021-05-28] MEDS: HYDROCORTISONE 1% CRM 30 GM TUBE EXT SCH (08:55)
[2021-05-28] MEDS: HYDROXYUREA 500 MG CAP PO SCH ×2 (08:55→20:51)
[2021-05-28] MEDS: CEROVITE ADV FORMULA TAB PO SCH (08:56)
[2021-05-28] MEDS: PANTOprazole 40 MG TAB PO SCH ×2 (08:56→20:51)
[2021-05-28] MEDS: hydrOXYzine HCl 25 MG TAB PO SCH ×4 (08:56→20:51)
[2021-05-28] MEDS: oxyCODONE HCL IR 5 MG TAB (IMMEDIATE RELEASE) PO SCH ×4 (09:00→22:32)
--- NOTE | 2021-05-28 12:01 | Hospitalist Progress Note ---
Date of Service May 28, 2021 Assessment & Plan (1) Sickle cell crisis: Plan: 20 yo F with H sickle cell anemia presenting with acute pain. Sickle cell crisis: -Hgb 8.7 on admission, drop to 7.3 - s/p 2 units pRBCs. 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 -Continue hydroxyurea 1000mg PO BID -No concern for acute chest at this time but will pursue CXR if symptoms worsen/evolve -D/c home once pain controlled on adequate regimen Constipation: -Secondary to opioid adverse effect -Continue bowel regimen of Mylanta 30ml ac and lactulose 30mg q1hr PRN. Vitamin D deficiency -Vitamin D level of 12.4 -Ergocalciferol 50k units initiated on 05/13, continue weekly for 8 weeks Vitamin B12 deficiency/Angular cheilitis -Patient with B12 level of 434, has few mouth ulcers and some chaffing at sides of lips. -Continue 1,000mcg cyanocobalamin qAM. -Given triamcinolone w/ little improvement, can consider antifungal if persistent Nasal congestion -Continue Flonase daily -Persistent nasal congestion has increased pt anxiety -Reassurance provided -Urine GC RNA pending -COVID/flu/RSV negative Depression/borderline personality disorder/anxiety -Anxiety further decreased from day prior, also less depressive symptoms -Hesitant to ask for hydroxyzine for concern of being labeled as drug seeking by nurse -reassured and advised to ask for meds when needed. -Continue hydroxyzine 25mg QID prn anxiety. -Continue duloxetine Endorsing suicidial thoughts to her therapist -has been denying SI to medicine team -[facility] liaison consulted: -somewhat depressed, fleeting thoughts of w/o suicidal ideation or intent. -looking forward to graduation, friends support her. -Telehealth appointment w/ [facility] on 05/25 -[facility] liaison following. will ask them to follow again on 05/28 GERD (gastroesophageal reflux disease): - Continue Protonix 40mg PO daily Psychogenic nonepileptic seizure: - Usually occurs with stressful events, no recent seizure - Continue reassurance, anxiety management, pain control Hyperbilirubinemia - Total bilirubin of 4.0 on admission likely due to current sickle cell crisis with red blood cell lysis, downtrending - Has chronically elevated bilirubin - No RUQ symptoms - Continue to monitor Diet: Regular DVT prophylaxis: Lovenox Disposition: Med/Surg CODE STATUS: Full code (2) Hyperbilirubinemia: (3) GERD (gastroesophageal reflux disease): (4) Depression: Admission and Anticipated Discharge Date Admission Date: May 08, 2021 Supervising Physician Co-Signing Physician Notes I personally examined the patient and verified all amaro points of history and exam, discussed case, and agree with decision making with Dr Mary chavarria about the same. back, chest vitals noted nad heent nc at mmm breathing unlabored no accessory muscles good effort skin no rashes no pallor or icterus acute on chronic pain / underlying sickle cell disease - pain multifactorial. working on multimodal approach. increase activity. keep meds same. trial of restart IVF. ?pain psychology as outpt otherwise as above Subjective No acute events overnight, receiving Dilaudid PRN q3h. Sleeping on evaluation this morning, appeared comfortable. Review of Systems Review of Systems: Per Subjective Physical Exam Constitutional: WD/WN, vitals as above Sleeping comfortably ENMT: Multiple aphthous ulcers of mouth Neck: normal visual inspection Respiratory: normal respiratory effort, lungs clear to auscultation normal respiratory effort Cardiovascular: RRR, no murmur, no edema Skin: no rashes, warm and dry Results & Data Results & Data ([facility]) Vital Signs (Past 12 Hours) Vital Signs Temp Pulse Pulse Resp BP Pulse Ox 05/28/21 07:13 36.7 C 75 18 95/59 L 97 05/27/21 23:46 36.7 C 89 18 99/62 L 96 Resident Activity Tracking Resident Involvement: Resident Care Provided Care Provided: Adult Hospital Medicine (1) GERD (gastroesophageal reflux disease) Esophagitis presence: esophagitis presence not specified Qualified Code(s): K21.9 - Gastro-esophageal reflux disease without esophagitis
[2021-05-28] MEDS: fentaNYL 25 MCG/HR TDSY TD SCH (16:33)
--- NOTE | 2021-05-28 17:33 | Billing Data ---
Date of Service May 28, 2021 Coding Level of Care Code 13088 Subseq Hosp Care Lvl 3
[2021-05-28] MEDS: ENOXAPARIN INJ 40 MG/0.4 ML SYR SQ SCH (20:52)
[2021-05-28] MEDS: SODIUM CHLORIDE 0.9% 1000ML 1,000 ML IV SCH (20:52)
[2021-05-29] MEDS: diphenhydrAMINE Capsule 25 MG CAP PO PRN (01:13)
[2021-05-29] MEDS: HYDROmorphone INJ 0.5 MG/0.5 ML SYR IV PRN ×6 (03:06→20:57)
[2021-05-29] MEDS: ACETAMINOPHEN 500 MG TAB PO SCH ×3 (05:09→20:24)
[2021-05-29 06:57] LABS: Hematocrit (blood only) 22.4 % (37-47); Hemoglobin 7.8 g/dL (12.0-16.0)
[2021-05-29] MEDS: ALUMINUM/MAGNESIUM/SIMETH (MAALOX MAX) 30 ML UDC PO SCH ×3 (07:17→16:49)
[2021-05-29] MEDS: CHECK fentaNYL PATCH PLACEMENT SCH ×3 (07:18→23:39)
[2021-05-29] MEDS: CHOLECALCIFEROL 5,000 UNITS 125 MCG TAB PO SCH (08:46)
[2021-05-29] MEDS: DULoxetine HCL 20 MG CAP PO SCH (08:46)
[2021-05-29] MEDS: CYANOCOBALAMIN (B-12) 500 MCG TABLET PO SCH (08:46)
[2021-05-29] MEDS: oxyCODONE HCL IR 5 MG TAB (IMMEDIATE RELEASE) PO SCH ×4 (08:46→20:25)
[2021-05-29] MEDS: FLUTICASONE PROPIONATE NA SPR 16 GM BTL SCH (08:47)
[2021-05-29] MEDS: FAMOTIDINE 20 MG TAB PO SCH ×2 (08:47→20:25)
[2021-05-29] MEDS: EUCERIN CR 120 GM JAR EXT SCH ×4 (08:47→20:25)
[2021-05-29] MEDS: FOLIC ACID 1 MG TAB PO SCH (08:47)
[2021-05-29] MEDS: PANTOprazole 40 MG TAB PO SCH ×2 (08:48→20:24)
[2021-05-29] MEDS: hydrOXYzine HCl 25 MG TAB PO SCH ×4 (08:48→20:24)
[2021-05-29] MEDS: HYDROXYUREA 500 MG CAP PO SCH ×2 (08:48→20:25)
[2021-05-29] MEDS: CEROVITE ADV FORMULA TAB PO SCH (08:48)
[2021-05-29] MEDS: POLYETHYLENE (MIRALAX) 17 GM PACK PO SCH (08:55)
[2021-05-29 11:06] LABS: Chlamydia Trach RNA NOT DETECTED (NOT DETECTED); GC (Neis gonorrhoeae) RNA NOT DETECTED (NOT DETECTED)
[2021-05-29] MEDS: SODIUM CHLORIDE 0.9% 1000ML 1,000 ML IV SCH ×2 (11:20→23:39)
--- NOTE | 2021-05-29 16:00 | Hospitalist Progress Note ---
Date of Service May 29, 2021 Assessment & Plan (1) Sickle cell crisis: Plan: 20 yo F with H sickle cell anemia presenting with acute pain. Sickle cell crisis: -Hgb 8.7 on admission, drop to 7.3 - s/p 2 units pRBCs. 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 -Continue hydroxyurea 1000mg PO BID -Continue mIVF to expand intravascular volume as addition to pain relief -No concern for acute chest at this time but will pursue CXR if symptoms worsen/evolve -D/c home once pain controlled on adequate regimen Weakness -Secondary to deconditioning and limited mobility during prolonged hospital stay in background of chronic pain -Continue PT with focus on L proximal hip flexors Constipation, subsequent diarrhea -Secondary to opioid adverse effect -Continue bowel regimen of Mylanta 30ml ac and lactulose 30mg q1hr PRN. -Suspect diarrhea is due to bypassing of obstruction 2/2 stool burden, low susp icion for clostridial/other infectious process -KUB ordered -May supplement bowel regimen with magnesium citrate if significant stool burden noted on XR -Continue mIVF Vitamin D deficiency -Vitamin D level of 12.4 -Ergocalciferol 50k units initiated on 05/13, continue weekly for 8 weeks Vitamin B12 deficiency/Angular cheilitis -Patient with B12 level of 434, has few mouth ulcers and some chaffing at sides of lips. -Continue 1,000mcg cyanocobalamin qAM. -Given triamcinolone w/ little improvement, can consider antifungal if persistent Nasal congestion -Continue Flonase daily -Persistent nasal congestion has increased pt anxiety -Reassurance provided -Urine GC RNA pending -COVID/flu/RSV negative Depression/borderline personality disorder/anxiety -Anxiety further decreased from day prior, also less depressive symptoms -Hesitant to ask for hydroxyzine for concern of being labeled as drug seeking by nurse -reassured and advised to ask for meds when needed. -Continue hydroxyzine 25mg QID prn anxiety. -Continue duloxetine Endorsing suicidial thoughts to her therapist -has been denying SI to medicine team -[facility] liaison consulted: -somewhat depressed, fleeting thoughts of w/o suicidal ideation or intent. -looking forward to graduation, friends support her. -Telehealth appointment w/ [facility] on 05/25 -[facility] liaison following. will ask them to follow again on 05/28 GERD (gastroesophageal reflux disease): - Continue Protonix 40mg PO daily Psychogenic nonepileptic seizure: - Usually occurs with stressful events, no recent seizure - Continue reassurance, anxiety management, pain control Hyperbilirubinemia - Total bilirubin of 4.0 on admission likely due to current sickle cell crisis with red blood cell lysis, downtrending - Has chronically elevated bilirubin - No RUQ symptoms - Continue to monitor Diet: Regular DVT prophylaxis: Lovenox Disposition: Med/Surg CODE STATUS: Full code (2) Hyperbilirubinemia: (3) GERD (gastroesophageal reflux disease): (4) Depression: Admission and Anticipated Discharge Date Admission Date: May 08, 2021 Supervising Physician Co-Signing Physician Notes I personally examined the patient and verified all amaro points of history and exam, discussed case, and agree with decision making with Dr Hernandez pain up and down - best today was about a 5, but that was also after PO and IV pain meds. walked ~200ft with pt - L hip pain biggest problem - lateral/anterior far more than deep groin. also some mid back pain. diarrhea ~2x today burning at rectum when occurs. watery. bloated poor appetite otherwise vitals noted nad heent nc at mmm breathing unlabored no accessory muscles good effort skin no rashes no pallor or icterus. gait slow and steady slight limp L hip anterior pain just distal to ASIS tender (region of proximal hip flexors) acute on chronic pain / underlying sickle cell disease - pain multifactorial. working on multimodal approach. continue working to increase activity. keep meds same. continue fluids for now diarrhea - most suspicious for overflow from chronic constipation. KUB. if (+) for stool then mag citrate. if not, follow status otherwise as above Subjective No acute events overnight, receiving Dilaudid PRN q3h. Sleeping on evaluation this morning, appeared comfortable. Later seen and evaluated during afternoon rounds. States she's had watery diarrhea for past 2 days, 2x episodes today, associated with some bloating, no associated fever, chills, nausea, vomiting. Had been constipated prior to that. Pain is currently at 5/10, still receiving PRN Dilaudid q3h. Walked around unit, noted sharp L lateral hip pain. Review of Systems Review of Systems: Per Subjective Physical Exam Constitutional: WD/WN, vitals as above Eyes: PERRL, conjunctivae normal, anicteric sclerae Neck: trachea midline, no thyromegaly normal visual inspection Respiratory: normal respiratory effort, lungs clear to auscultation normal respiratory effort Cardiovascular: RRR, no murmur, no edema Gastrointestinal (Abdomen): Inspection/Auscultation: abdomen normal to inspection Percussion/Palpation: + abdomen tender and abdomen soft Musculoskeletal: Head/Neck/Chest: normocephalic and head atraumatic TTP to lateral L hip along proximal hip flexor distribution, minor antalgic gait Skin: no rashes, warm and dry Neurologic: moves all extremities Results & Data Results & Data ([facility]) Vital Signs (Past 12 Hours) Vital Signs Temp Pulse Resp BP Pulse Ox 05/29/21 07:51 36.8 C 75 16 89/46 L 96 (1) GERD (gastroesophageal reflux disease) Esophagitis presence: esophagitis presence not specified Qualified Code(s): K21.9 - Gastro-esophageal reflux disease without esophagitis
--- NOTE | 2021-05-29 16:26 | XRay Report ---
XR KUB/Abdomen 1 view CLINICAL HISTORY: Bloating, diarrhea TECHNIQUE: 1 view of the abdomen was obtained. Comparison: Comparison is made to abdominal radiograph 04/25/2020 FINDINGS: Lung bases are unremarkable. The osseous structures are grossly unremarkable. The bowel gas pattern i s nonobstructive. A moderate amount of stool is noted within the large bowel. IMPRESSION: Nonobstructive bowel gas pattern. ACT 112: Negative or not required by law. Electronically signed by: Kenn Jeffrey M.D. 05/29/2021 4:24 PM
--- NOTE | 2021-05-29 18:09 | Billing Data ---
Date of Service May 29, 2021 Coding Level of Care Code 26934 Subseq Hosp Care Lvl 3
[2021-05-29] MEDS: MAGNESIUM CITRATE 296 ML/BTL PO SCH (18:12)
[2021-05-29] MEDS: ENOXAPARIN INJ 40 MG/0.4 ML SYR SQ SCH (20:25)
[2021-05-30] MEDS: HYDROmorphone INJ 0.5 MG/0.5 ML SYR IV PRN ×8 (00:04→22:17)
[2021-05-30] MEDS: ACETAMINOPHEN 500 MG TAB PO SCH ×3 (06:05→19:45)
[2021-05-30] MEDS: ALUMINUM/MAGNESIUM/SIMETH (MAALOX MAX) 30 ML UDC PO SCH ×3 (08:18→16:24)
[2021-05-30] MEDS: CHECK fentaNYL PATCH PLACEMENT SCH ×2 (08:19→16:25)
[2021-05-30] MEDS: FLUTICASONE PROPIONATE NA SPR 16 GM BTL SCH (09:49)
[2021-05-30] MEDS: DULoxetine HCL 20 MG CAP PO SCH (09:50)
[2021-05-30] MEDS: CYANOCOBALAMIN (B-12) 500 MCG TABLET PO SCH (09:51)
[2021-05-30] MEDS: CEROVITE ADV FORMULA TAB PO SCH (09:51)
[2021-05-30] MEDS: CHOLECALCIFEROL 5,000 UNITS 125 MCG TAB PO SCH (09:51)
[2021-05-30] MEDS: FOLIC ACID 1 MG TAB PO SCH (09:52)
[2021-05-30] MEDS: PANTOprazole 40 MG TAB PO SCH ×2 (09:52→19:44)
[2021-05-30] MEDS: POLYETHYLENE (MIRALAX) 17 GM PACK PO SCH (09:53)
[2021-05-30] MEDS: hydrOXYzine HCl 25 MG TAB PO SCH ×4 (09:53→19:44)
[2021-05-30] MEDS: HYDROXYUREA 500 MG CAP PO SCH ×2 (09:53→19:46)
[2021-05-30] MEDS: FAMOTIDINE 20 MG TAB PO SCH ×2 (09:54→19:45)
[2021-05-30] MEDS: MAGNESIUM CITRATE 296 ML/BTL PO SCH (09:58)
[2021-05-30] MEDS: EUCERIN CR 120 GM JAR EXT SCH ×4 (10:03→19:47)
[2021-05-30] MEDS: oxyCODONE HCL IR 5 MG TAB (IMMEDIATE RELEASE) PO SCH ×4 (10:05→22:19)
[2021-05-30] MEDS ORDERED: bisacodyL 10 MG SUPP PR STA (11:16)
--- NOTE | 2021-05-30 12:07 | Hospitalist Progress Note ---
Date of Service May 30, 2021 Assessment & Plan (1) Sickle cell crisis: Plan: 20 yo F with H sickle cell anemia presenting with acute pain. Sickle cell crisis: -Hgb 8.7 on admission, drop to 7.3 - s/p 2 units pRBCs. Hgb 7.8 on 05/28 -Pain regimen. Pain control improving over past few days -Toradol q6h PRN, Dilaudid q3h PRN, naloxone PRN -Nucynta discontinued -Currently fentanyl patch 25mcg for extended release pain relief -Oxycodone 10mg QID for short acting pain -Pain management consulted - fentanyl + oxycodone fine for now but most likely not detention solution. 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 -Continue PT with focus on L and R proximal hip flexors Constipation, subsequent diarrhea -Secondary to opioid adverse effect and now overflow past obstruction, consistent with KUB 05/29 -Continue bowel regimen of Mylanta 30ml ac and lactulose 30mg q1hr PRN, magnesium citrate -Added suppository to further reduce stool burden today Vitamin D deficiency -Vitamin D level of 12.4 -Ergocalciferol 50k units initiated on 05/13, continue weekly for 8 weeks -Continue vitamin D3 5000u daily Vitamin B12 deficiency/Angular cheilitis -Patient with B12 level of 434, has few mouth ulcers and some chaffing at sides of lips. -Continue 1,000mcg cyanocobalamin qAM. -Given triamcinolone w/ little improvement, can consider antifungal if persistent Nasal congestion -Continue Flonase daily -Persistent nasal congestion has increased pt anxiety -Reassurance provided -Urine GC RNA negative -COVID/flu/RSV negative Depression/borderline personality disorder/anxiety -Anxiety further decreased from day prior, also less depressive symptoms -Hesitant to ask for hydroxyzine for concern of being labeled as drug seeking by nurse -reassured and advised to ask for meds when needed. -Continue hydroxyzine 25mg QID prn anxiety. -Continue duloxetine Endorsing suicidial thoughts to her therapist -has been denying SI to medicine team -[facility] [[email or web address]] liaison consulted: -somewhat depressed, fleeting thoughts of w/o suicidal ideation or intent. -looking forward to graduation, friends support her. -Telehealth appointment w/ [facility] on 05/25 GERD (gastroesophageal reflux disease): - Continue Protonix 40mg PO daily Psychogenic nonepileptic seizure: - Usually occurs with stressful events, no recent seizure - Continue reassurance, anxiety management, pain control Hyperbilirubinemia - Total bilirubin of 4.0 on admission likely due to current sickle cell crisis with red blood cell lysis, downtrending - Has chronically elevated bilirubin - No RUQ symptoms - Continue to monitor Diet: Regular DVT prophylaxis: Lovenox Disposition: Med/Surg CODE STATUS: Full code (2) Hyperbilirubinemia: (3) GERD (gastroesophageal reflux disease): (4) Depression: Admission and Anticipated Discharge Date Admission Date: May 08, 2021 Supervising Physician Co-Signing Physician Notes I personally examined the patient and verified all amaro points of history and exam, discussed case, and agree with decision making with Dr Hernandez Still with watery stoolsnothing has really changed with qualityjust an uptick in the quantity. Pain is doing better. vitals noted nad heent nc at mmm breathing unlabored no accessory muscles good effort skin no rashes no pallor or icterus. Abdomen soft mildly distended mild diffuse tendernesssimilar to before acute on chronic pain / underlying sickle cell disease - pain multifactorial. working on multimodal approach. continue working to increase activity. keep meds same. Trying to facilitate at least virtual with [facility] cell center diarrhea -overflow from chronic constipation. KUB confirms with solid stool on imaging in spite of patient having watery diarrhea by history. Continue bowel regimen. otherwise as above Subjective No acute events overnight, receiving Dilaudid PRN q3h. States pain today was 4- 5/10 severity. Continued to have some loose watery bowel movements. No new acute complaints. Says she would like to go home by 06/01. Review of Systems Review of Systems: Per Subjective Physical Exam Constitutional: WD/WN, vitals as above Eyes: PERRL, conjunctivae normal, anicteric sclerae Neck: trachea midline, no thyromegaly normal visual inspection Respiratory: normal respiratory effort, lungs clear to auscultation normal respiratory effort Cardiovascular: RRR, no murmur, no edema Gastrointestinal (Abdomen): Inspection/Auscultation: abdomen normal to inspection Percussion/Palpation: + abdomen tender (less tender than day prior) and abdomen soft Musculoskeletal: Head/Neck/Chest: normocephalic and head atraumatic Skin: no rashes, warm and dry Neurologic: moves all extremities Psychiatric: A+Ox3, euthymic affect Lymphatic: no cervical lymphadenopathy Results & Data Results & Data ([facility]) Vital Signs (Past 12 Hours) Vital Signs Temp Pulse Resp BP Pulse Ox 05/30/21 11:08 37 C 80 16 109/73 100 05/30/21 08:05 36.5 C 82 12 105/68 98 (1) GERD (gastroesophageal reflux disease) Esophagitis presence: esophagitis presence not specified Qualified Code(s): K21.9 - Gastro-esophageal reflux disease without esophagitis
[2021-05-30] MEDS: ONDANSETRON INJ 2 MG/ML 2 ML VIAL IV PRN (13:02)
[2021-05-30] MEDS ORDERED: LACTULOSE SYRUP 30 GM/45 ML UDP PO STA (18:57)
--- NOTE | 2021-05-30 19:01 | Billing Data ---
Date of Service May 30, 2021 Coding Level of Care Code 33096 Subseq Hosp Care Lvl 3
[2021-05-30] MEDS: ENOXAPARIN INJ 40 MG/0.4 ML SYR SQ SCH (19:48)
[2021-05-31] MEDS: CHECK fentaNYL PATCH PLACEMENT SCH ×4 (01:33→23:01)
[2021-05-31] MEDS: HYDROmorphone INJ 0.5 MG/0.5 ML SYR IV PRN ×7 (01:33→22:58)
[2021-05-31] MEDS: ACETAMINOPHEN 500 MG TAB PO SCH ×3 (05:31→22:33)
[2021-05-31] MEDS: hydrOXYzine HCl 25 MG TAB PO SCH ×4 (09:41→22:34)
[2021-05-31] MEDS: FAMOTIDINE 20 MG TAB PO SCH ×2 (09:41→22:33)
[2021-05-31] MEDS: PANTOprazole 40 MG TAB PO SCH ×2 (09:41→22:35)
[2021-05-31] MEDS: DULoxetine HCL 20 MG CAP PO SCH (09:41)
[2021-05-31] MEDS: CHOLECALCIFEROL 5,000 UNITS 125 MCG TAB PO SCH (09:41)
[2021-05-31] MEDS: HYDROXYUREA 500 MG CAP PO SCH ×2 (09:41→22:34)
[2021-05-31] MEDS: FOLIC ACID 1 MG TAB PO SCH (09:41)
[2021-05-31] MEDS: ALUMINUM/MAGNESIUM/SIMETH (MAALOX MAX) 30 ML UDC PO SCH ×3 (09:41→18:06)
[2021-05-31] MEDS: CEROVITE ADV FORMULA TAB PO SCH (09:42)
[2021-05-31] MEDS: MAGNESIUM CITRATE 296 ML/BTL PO SCH (09:42)
[2021-05-31] MEDS: FLUTICASONE PROPIONATE NA SPR 16 GM BTL SCH (09:43)
[2021-05-31] MEDS: CYANOCOBALAMIN (B-12) 500 MCG TABLET PO SCH (09:43)
[2021-05-31] MEDS: EUCERIN CR 120 GM JAR EXT SCH ×4 (09:43→22:36)
[2021-05-31] MEDS: POLYETHYLENE (MIRALAX) 17 GM PACK PO SCH (09:44)
[2021-05-31] MEDS: oxyCODONE HCL IR 5 MG TAB (IMMEDIATE RELEASE) PO SCH ×4 (09:52→22:32)
--- NOTE | 2021-05-31 09:52 | Hospitalist Progress Note ---
Date of Service May 31, 2021 Assessment & Plan (1) Sickle cell crisis: Plan: 20 yo F with H sickle cell anemia presenting with acute pain. Sickle cell crisis: -Hgb 8.7 on admission, drop to 7.3 - s/p 2 units pRBCs. Hgb 7.8 on 05/29 -Pain regimen. Pain control improving over past few days -Toradol q6h PRN, Dilaudid q3h PRN, naloxone PRN -Nucynta discontinued -Currently fentanyl patch 25mcg for extended release pain relief -Oxycodone 10mg QID for short acting pain -Pain management consulted - fentanyl + oxycodone fine for now but most likely not mcfp solution. -Continue hydroxyurea 1000mg PO BID -No concern for acute chest at this time but will pursue CXR if symptoms worsen/evolve -D/c home once pain controlled on adequate regimen. Anticipate discharge pain regimen to be fentanyl patch 25mcg + oxycodone 10mg QID PRN for breakthrough pain. 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 -Continue PT with focus on L and R proximal hip flexors -Sternal and arm pain may be due to downward pressure from chest- breast reduction may help address this Constipation, subsequent diarrhea -Secondary to opioid adverse effect and now overflow past obstruction, consistent with KUB 05/29 -Continue bowel regimen of Mylanta 30ml ac and lactulose 30mg q1hr PRN, magne sium citrate -Due to chronic opioid use, pt will need adequate bowel regimen as outpatient- consider daily Miralax with 1-2x per week magnesium citrate Vitamin D deficiency -Vitamin D level of 12.4 -Ergocalciferol 50k units initiated on 05/13, continue weekly for 8 weeks -Continue vitamin D3 5000u daily Vitamin B12 deficiency/Angular cheilitis -Patient with B12 level of 434, has few mouth ulcers and some chaffing at sides of lips. Now improving -Continue 1,000mcg cyanocobalamin qAM. -Given triamcinolone w/ little improvement, can consider antifungal if persistent Nasal congestion -Continue Flonase daily -Persistent nasal congestion has increased pt anxiety -Reassurance provided -Urine GC RNA negative -COVID/flu/RSV negative Depression/borderline personality disorder/anxiety -Anxiety further decreased from day prior, also less depressive symptoms -Hesitant to ask for hydroxyzine for concern of being labeled as drug seeking by nurse -reassured and advised to ask for meds when needed. -Continue hydroxyzine 25mg QID prn anxiety. -Continue duloxetine Endorsing suicidial thoughts to her therapist -has been denying SI to medicine team -[facility] liaison consulted: -somewhat depressed, fleeting thoughts of w/o suicidal ideation or intent. -looking forward to graduation, friends support her. -Telehealth appointment w/ [facility] on 05/25 GERD (gastroesophageal reflux disease): - Continue Protonix 40mg PO daily Psychogenic nonepileptic seizure: - Usually occurs with stressful events, no recent seizure - Continue reassurance, anxiety management, pain control Hyperbilirubinemia - Total bilirubin of 4.0 on admission likely due to current sickle cell crisis with red blood cell lysis, downtrending - Has chronically elevated bilirubin - No RUQ symptoms - Continue to monitor Diet: Regular DVT prophylaxis: Lovenox Disposition: Med/Surg CODE STATUS: Full code (2) Hyperbilirubinemia: (3) GERD (gastroesophageal reflux disease): (4) Depression: Admission and Anticipated Discharge Date Admission Date: May 08, 2021 Supervising Physician Co-Signing Physician Notes I personally examined the patient and verified all amaro points of history and exam, discussed case, and agree with decision making with Dr Hernandez continues to slowly feel better. would like to see plastics re breast reduction surgery for chest and back pain vitals noted nad heent nc at mmm breathing unlabored no accessory muscles good effort skin no rashes no pallor or icterus. acute on chronic pain / underlying sickle cell disease - pain multifactorial. working on multimodal approach. continue working to increase activity. keep meds same. [facility] patel facilitating w sickle cell center - does need an in person visit at first though - d/w pt. diarrhea -overflow from chronic constipation. KUB confirms with solid stool on imaging in spite of patient having watery diarrhea by history. Continue bowel regimen. seems to be improving chest and back pain - quite plausible that it is from breast mass / biomechanics - for plastics eval as outpt otherwise as above, hopefully home soon Subjective No acute events overnight, receiving Dilaudid PRN q3h. States pain today was 3- 4/10 severity. Continues to have some loose bowel movements but less frequent than day prior. No new acute complaints. Says she would like to go home tomorrow. Review of Systems Review of Systems: Per Subjective Physical Exam Constitutional: WD/WN, vitals as above Eyes: PERRL, conjunctivae normal, anicteric sclerae Neck: trachea midline, no thyromegaly normal visual inspection Respiratory: normal respiratory effort, lungs clear to auscultation normal respiratory effort Cardiovascular: RRR, no murmur, no edema Gastrointestinal (Abdomen): Inspection/Auscultation: abdomen normal to inspection Percussion/Palpation: abdomen soft; abdomen nontender Musculoskeletal: Head/Neck/Chest: normocephalic and head atraumatic Skin: no rashes, warm and dry Neurologic: moves all extremities Psychiatric: A+Ox3, euthymic affect Lymphatic: no cervical lymphadenopathy Results & Data Results & [facility] ([facility]) Vital Signs (Past 12 Hours) Vital Signs Temp Pulse Pulse Resp BP BP Pulse Ox 05/31/21 07:39 36.8 C 81 16 101/65 94 05/30/21 22:15 36.8 C 73 16 102/67 98 Resident Activity Tracking Resident Involvement: Resident Care Provided Care Provided: Adult Hospital Medicine (1) GERD (gastroesophageal reflux disease) Esophagitis presence: esophagitis presence not specified Qualified Code(s): K21.9 - Gastro-esophageal reflux disease without esophagitis
[2021-05-31] MEDS: fentaNYL 25 MCG/HR TDSY TD SCH (17:55)
--- NOTE | 2021-05-31 18:31 | Billing Data ---
Date of Service May 31, 2021 Coding Level of Care Code 25834 Subseq Hosp Care Lvl 3
[2021-05-31] MEDS: ONDANSETRON INJ 2 MG/ML 2 ML VIAL IV PRN (19:57)
[2021-05-31] MEDS: ENOXAPARIN INJ 40 MG/0.4 ML SYR SQ SCH (22:36)
[2021-06-01] MEDS: HYDROmorphone INJ 0.5 MG/0.5 ML SYR IV PRN ×4 (02:51→15:57)
[2021-06-01] MEDS: ACETAMINOPHEN 500 MG TAB PO SCH ×2 (06:35→13:36)
[2021-06-01] MEDS: oxyCODONE HCL IR 5 MG TAB (IMMEDIATE RELEASE) PO SCH ×2 (08:52→13:36)
[2021-06-01] MEDS: ALUMINUM/MAGNESIUM/SIMETH (MAALOX MAX) 30 ML UDC PO SCH ×2 (08:53→12:05)
[2021-06-01] MEDS: CHECK fentaNYL PATCH PLACEMENT SCH ×2 (08:53→15:56)
[2021-06-01] MEDS: EUCERIN CR 120 GM JAR EXT SCH ×2 (08:53→12:32)
[2021-06-01] MEDS: CHOLECALCIFEROL 5,000 UNITS 125 MCG TAB PO SCH (09:38)
[2021-06-01] MEDS: PANTOprazole 40 MG TAB PO SCH (09:38)
[2021-06-01] MEDS: CEROVITE ADV FORMULA TAB PO SCH (09:38)
[2021-06-01] MEDS: CYANOCOBALAMIN (B-12) 500 MCG TABLET PO SCH (09:38)
[2021-06-01] MEDS: HYDROXYUREA 500 MG CAP PO SCH (09:38)
[2021-06-01] MEDS: DULoxetine HCL 20 MG CAP PO SCH (09:38)
[2021-06-01] MEDS: hydrOXYzine HCl 25 MG TAB PO SCH ×2 (09:39→13:36)
[2021-06-01] MEDS: FOLIC ACID 1 MG TAB PO SCH (09:39)
[2021-06-01] MEDS: FLUTICASONE PROPIONATE NA SPR 16 GM BTL SCH (09:39)
[2021-06-01] MEDS: FAMOTIDINE 20 MG TAB PO SCH (09:39)
[2021-06-01] MEDS: POLYETHYLENE (MIRALAX) 17 GM PACK PO SCH (09:40)
[2021-06-01] MEDS: MAGNESIUM CITRATE 296 ML/BTL PO SCH (09:46)
--- NOTE | 2021-06-01 14:54 | Discharge Summary ---
Date of Service June 01, 2021 Admission HPI Per Admitting Provider 20-year-old female with past medical history of sickle cell disease, chronic pain, Sleep disturbance, GERD, Anxiety, pseudoseizures, Depression, and Borderline personality disorder. Patient comes to the hospital today for complaints of increasing pain associated with her sickle cell disease since this morning The patient endorses that her pain has gotten worse over the past 12 hours. She feels her pain is diffuse in nature and is nonfocal. Patient reports that prior to coming to the ED this morning she attempted taking 2 of her Nucynta to improve her pain but only had a 10% improvement. Patient reports she had for the ED after and having minimal response. Additionally patient reports that over the past 2 weeks she has been having congestion, runny nose, and sinus pressure. Patient feels that her current sickle cell crisis is due to the weather changing. Denies any increase in marijuana use or any alcohol use. In the ED the patient had routine labs performed to include retic panel and routine CXR. She was given IV morphine 14mg total for her pain and 1L crystalloid therapy as well as dose of Toradol in the ED. Her labs revealed HGB level of 8.7 RDW 74.2 and retic of 0.45. Due to her pain and increase in her reticulocyte count the hospitalist service was consulted for admission. Patient will be admitted for sickle crisis, will continue IVF resuscitation and continue her pain regimen with opioids as needed. Patient currently denies any shortness of breath but does report some chest discomfort. Otherwise her last menstrual cycle was 2 weeks ago. Patient is not having any UTI symptoms including pain with urination, increased frequency, or flank pain. Patient has no other complaints at this time. Patient has received her COVID vaccine and her COVID test on admission is: NEGATIVE Admission Exam Per Admitting Provider Constitutional: WD/WN, vitals as above Eyes: PERRL, conjunctivae normal, anicteric sclerae Neck: trachea midline, no thyromegaly Respiratory: normal respiratory effort, lungs clear to auscultation Cardiovascular: RRR, no murmur, no edema Gastrointestinal (Abdomen): Inspection/Auscultation: abdomen normal to inspection and normal bowel sounds Percussion/Palpation: + abdomen tender and abdomen soft Musculoskeletal: Head/Neck/Chest: normocephalic and head atraumatic Skin: no rashes, warm and dry Neurologic: moves all extremities Psychiatric: A+Ox3, euthymic affect Lymphatic: no cervical lymphadenopathy Principal Diagnosis Sickle cell pain crisis Discharge Exam Constitutional WD/WN, vitals as above Eyes PERRL, conjunctivae normal, anicteric sclerae Neck trachea midline, no thyromegaly normal visual inspection Respiratory normal respiratory effort, lungs clear to auscultation normal respiratory effort Cardiovascular RRR, no murmur, no edema Gastrointestinal (Abdomen) Inspection/Auscultation: abdomen normal to inspection Percussion/Palpation: abdomen soft; abdomen nontender Musculoskeletal Head/Neck/Chest: normocephalic and head atraumatic Skin no rashes, warm and dry Neurologic moves all extremities Psychiatric A+Ox3, euthymic affect Lymphatic no cervical lymphadenopathy Discharge Data Allergies Allergy/AdvReac Type Severity Reaction Status Date / Time No Known Allergies Allergy Verified 05/08/21 15:02 Consultations 05/08/21 17:04 ED Decision to Admit Stat 05/08/21 17:17 ED Decision to Admit Stat 05/23/21 16:03 Consult Behavioral Health Liaison Routine 05/25/21 08:22 Consult Pain Management Routine 05/31/21 18:26 Consult [employer] fiber optics engineer Routine Hospital Course (1) Sickle cell crisis: 20 yo F with PMH sickle cell anemia presenting with acute pain. Sickle cell crisis: -Hgb 8.7 on admission, drop to 7.3 - s/p 2 units pRBCs. Hgb 7.8 on 05/29 -Pain regimen. Pain control improved over past 3 days leading up to discharge -Toradol q6h PRN, Dilaudid q3h PRN, naloxone PRN. Regularly received Dilaudid q3h. -Home Nucynta discontinued -Currently on fentanyl patch 25mcg for extended release pain relief and oxycodone 10mg QID for short acting pain -Pain management consulted during stay - fentanyl + oxycodone fine for now but most likely not [facility] solution. -No concern for acute chest during admission, CXR clear -Discharged home on fentanyl patch 25mcg + oxycodone 10mg QID PRN for breakthrough pain. Also scheduled appointment with sickle cell center in [place] with Dr. 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 likely contributory -Received PT with focus on L and R proximal hip flexors -Sternal and arm pain may be due to downward pressure from chest- breast reduction may help address this -Pt considering breast reduction for this reason, consider referral to plastic surgery Constipation, subsequent diarrhea -Secondary to opioid adverse effect and later overflow past obstruction, consistent with KUB 05/29 -Bowel regimen of Mylanta 30ml ac and lactulose 30mg q1hr PRN, magnesium citrate during stay -Due to chronic opioid use, pt will need adequate bowel regimen as outpatient- discharged with instruction to use daily Miralax with 1-2x per week magnesium citrate -Consider repeat KUB if constipation worsens Vitamin D deficiency -Vitamin D level of 12.4 -Ergocalciferol 50k units initiated on 05/13, daily D3 5000 units during stay -Discharged with script for ergocalciferol 50k units weekly x8 weeks, instruction to take D3 2000 units daily -PCP to recheck vitamin D level Vitamin B12 deficiency/Angular cheilitis -B12 level of 434 and associated aphthous ulcers and chaffed lips -Continued 1,000mcg cyanocobalamin daily during stay and aphthous ulcers improved -Discharged with instruction to continue vitamin B12/cyanocobalamin daily 1000mcg -PCP to recheck B12 level Nasal congestion -Continued Flonase daily -Persistent nasal congestion increased pt anxiety and she requested multiple tests for her own peace of mind -Reassurance provided -Urine GC RNA negative -COVID/flu/RSV negative Depression/borderline personality disorder/anxiety -Stable mood and no anxiety attacks during stay -Minimal PRN hydroxyzine use History of suicidality -has been denying SI to medicine team -[facility] liaison consulted during stay: -somewhat depressed, fleeting thoughts of w/o suicidal ideation or intent. -looking forward to graduation, friends support her. -Telehealth appointment w/ [facility] on 05/25 Psychogenic nonepileptic seizure: - Usually occurs with stressful events, no seizures occurred during stay Chronic hyperbilirubinemia - Total bilirubin of 4.0 on admission likely due to current sickle cell crisis with red blood cell lysis, downtrended during stay - No RUQ symptoms (2) Hyperbilirubinemia: (3) GERD (gastroesophageal reflux disease): (4) Depression: Total Time Total Time Spent Total Time Spent (In Minutes): <30 Discharge Plan Discharge Items Patient Disposition: Home - Self-Care Reason For Visit: SICKLE CELL CRISIS, PAIN Discharge Diagnosis: Sickle cell pain crisis Condition on Discharge: Fair Activity: Resume your previous activity Non-emergency contact: Primary Care Provider Call non-emergency contact if: you have any medication questions, your symptoms worsen, your pain is worsening and you have a fever Follow-up/Referrals: [facility] [Primary Care Provider] - Zamzam Bailey MD [Resident] - 06/07/21 12:50 pm Diet: Regular Addtl Attending Provider Instructions: You were admitted to the hospital for sickle cell pain crisis. Your pain was likely multifactorial, its components including the sickle cell anemia itself as well as biomechanical causes and opioid-related pain such as narcotic hyperalgesia and tolerance. In addition there is also a chronic pain element from your body being used to the feeling of pain, which is a psychosomatic contribution to the pain. You were treated with several modes of pain relief including opioid pain control, IV fluids and physical therapy. You also had constipation, which was likely due to opioid side effect. To ensure adequate treatment while you receive opioid pain relief, you should take Miralax daily and magnesium citrate twice a week. You were also diagnosed with low vitamin B12 and vitamin D, which we began supplementing in the hospital and you should continue after discharge. Adequate B12 and vitamin D levels will also likely assist in generalized pain/discomfort relief. A discharge summary will be sent to your primary care physician to ensure continuity of care. Please bring this discharge summary with you to your next office appointment so that your provider can review it at that time. Follow-up appointments: Make a follow-up appointment with your PCP within the next week. It is very important that you follow up with them shortly after discharge from the hospital. We will request a follow up appointment with Dr. Bailey. Tentatively, it is scheduled for 06/07 at 12:50 PM. You can reschedule this if the time and date is inconvenient. Please call [phone] to reschedule. The sickle cell pain center appointment information is written below. Medications: Your medication list has been reviewed and reconciled upon discharge to ensure accuracy and continuity of care. An updated list of all your medications is included with your hospital discharge paperwork. Please review this list closely, and make note of any changes. For pain control, you will be discharged on the fentanyl patch and oxycodone as needed. The fentanyl patches are generally switched every 3 days and oxycodone is intended for acute pain relief as needed. We began supplementation with vitamin D and B12 while you're in the hospital. Continue ergocalciferol (vitamin D2 50,000 units, this was sent to [facility] in [facility] on [address]) once weekly for 8 weeks. Your next dose is on 06/02. Take cholecalciferol (vitamin D3 2000 units daily, this is over the counter). Take cyanocobalamin (vitamin B12 1000 mcg daily, this is also over the counter). Miralax daily, magnesium citrate twice a week (about 3 days apart). Take your medications as instructed; do not skip a dose of your medicines. Make sure all of your doctors know every medicine you are taking (including yxiu-bas-cuxvrsd medicines, vitamins, and supplements). Call your primary care provider before taking any new medicines (including crxr-itm-zufoyjr medicines, vitamins, and supplements), because some of these may interact with your current medications, or may make your symptoms worse. Tell your primary care provider if you cannot afford your medications. CONTACT YOUR PRIMARY CARE PROVIDER if you experience any of the following: Abdominal pain Constipation Vomiting Uncontrolled pain Excessive sleepiness Flu-like symptoms Fever, chills Difficulty following your treatment plan, or difficulty taking medications CALL 911 OR GO TO THE EMERGENCY DEPARTMENT if you experience any of the following: Sudden, severe abdominal pain or nausea/vomiting Severe chest pain, or chest pain that radiates (moves) to your jaw or arm Sudden, severe shortness of breath or difficulty breathing Thank you for allowing us to participate in your care. Addtl Interchange Agent Provider Instructions: An appointment has been scheduled for you to see Dr. Vee Estrada of [facility]. Your appointment is on 08/03/21 at 1:30pm at address [facility] [place], [address] [place] [address], [place] [address]. The [employer] bus does offer transportation from [place] to [place] on 08/03/21, and should cost around $70 round trip. To schedule your bus ride please go to [email or web address], and electronically purchase your ticket. You will need a photo ID to board the bus. If you are unable to make this appointment, please call Dr. Estrada's office at [phone] to reschedule. Pending Studies at Discharge: No Stand-Alone Forms: My [facility], Opioid Pain Management Medications and DC Order Prescriptions: New ergocalciferol (vitamin D2) 1,250 mcg (50,000 unit) capsule 50,000 unit PO .weekly 56 Days Qty: 8 RF: 0 fentanyl 25 mcg/hr patch 72 hour 1 patch transdermal Q72H Qty: 5 RF: 0 oxycodone 10 mg tablet 10 mg PO Q6H PRN (Reason: pain) Qty: 45 RF: 0 Continued naloxone [Narcan] 4 mg/actuation spray,non-aerosol 1 spray intranasal .Q3 MINUTES PRN (Reason: OVERSEDATION) RF: 0 duloxetine 20 mg capsule,delayed release(DR/EC) 20 mg PO DAILY RF: 0 hydroxyurea 500 mg capsule 1,000 mg PO BID RF: 0 pantoprazole 40 mg tablet,delayed release (DR/EC) 40 mg PO DAILY RF: 0 folic acid 1 mg Tablet 2 mg PO DAILY RF: 0 Discontinued Nucynta 50 mg tablet 50 mg PO BID RF: 0 Discharge Orders: Discharge Order (Routine); Ordered 06/01/21 Ordered By: Quintin Hernandez Admission Data Admit Date/Time: 05/08/21 18:26 Attending Provider: Cesar Kerr Admit Provider: David Alas Primary Care Provider: [facility] Other Providers: Sada Pandya ; Jamie Shaw ; Cesar Kerr ; Anil Bullock ; Caty Serna Other Interventions: Discharge Summary Assessment (RN) Last Done: 06/01/21 16:03 Supervising Physician Co-Signing Physician Notes I personally examined the patient and verified all amaro points of history and exam, discussed case, and agree with decision making with Dr Hernandez Feels up to going home. After discharge orders have been entered, but prior to patient leaving the building, her pharmacist called to confirm change in medicationsI greatly appreciated the call, clarified diagnosis we were treating, clarified the switch away from the Nucynta and the patient's side effects with that, and reassured pharmacy that she had basically been on this regimen for greater than a week in the hospital prior to discharge. Had discussed pain regimens with the patient yesterday, discussing the risks/side effects/limitations of the current regimenand the fact that probably it needs to be viewed through a temporary lens, but given that she was having intolerable side effects with the Nucynta, we agreed that for now this made the most sense, and continue to titrate pain regimen as an outpatient (specifically discussed that as the multimodal approach takes effect, ideally meds could be weanedbut if meds are not able to be weaned then narcotics cycling could be utilized to try to at least minimize tolerance/escalation) vitals noted nad heent nc at mmm breathing unlabored no accessory muscles good effort skin no rashes no pallor or icterus. acute on chronic pain / underlying sickle cell disease - pain multifactorial. working on multimodal approach. airfreight loading supervisor facilitated with sickle cell centerthe patient does need an in person visit the first time, discussed with her, case management [place] get [place] ride herself. diarrhea -overflow from chronic constipation. KUB confirms with solid stool on imaging in spite of patient having watery diarrhea by history. Continue bowel regimen as an outpatient seems to be improving chest and back pain - quite plausible that it is from breast mass / biomechanics - for plastics eval as outptasked navigator to facilitate otherwise as above, cautiously stable for home today Resident Activity Tracking Resident Involvement: Resident Care Provided Care Provided: Adult Hospital Medicine
--- NOTE | 2021-06-01 17:03 | Billing Data ---
Date of Service June 01, 2021 Coding Level of Care Code D/C DAY MANAGEMENT <30 MINS
--- NOTE | 2021-06-01 17:04 | Billing Data ---
Date of Service June 01, 2021 Coding Level of Care Code D/C DAY MANAGEMENT <30 MINS
== END 2021-06-01 17:34 | disposition home or self-care (01) | DRG 812 ==
LOC: ED 12:10 → 3N 18:26 → SUATTDRO 18:26 → 3N 20:34

== ENCOUNTER 2021-06-15 02:50 | Inpatient (IN) ==
[2021-06-15 04:20] LABS: Reticulocytes # 0.17 10^6/uL (0.02-0.10)
[2021-06-15 04:27] LABS: Base Excess VBG 1.9 mEq/L; INR 1.1 (0.9-1.1); Oxygen Saturation VBG 78.5 %; Partial Thromboplastin Ratio 0.8; Partial Thromboplastin Time 22.2 Seconds (21.0-31.0); Prothrombin Time 11.5 Seconds (9.0-12.0); pH VBG 7.4 (7.36-7.41)
[2021-06-15 04:34] LABS: Pregnancy Test, Serum Negative (Negative)
[2021-06-15 04:44] LABS: Basophils # (auto) 0.03 K/uL (0-0.2); Basophils % (auto) 0.5 %; Eosinophils # (auto) 0.08 K/uL (0-0.5); Eosinophils % (auto) 1.4 %; Hematocrit (blood only) 26.2 % (37-47); Hemoglobin 9.1 g/dL (12.0-16.0); Immature Granulocytes # (auto) 0.01 K/uL (0.00-0.02); Immature Granulocytes % (auto) 0.2 %; Lymphocytes # (auto) 2.38 K/uL (1.2-3.4); Lymphocytes % (auto) 40.3 %; Mean Corpuscular Hemoglobin 36.7 pg (25-34); Mean Corpuscular Hgb Conc 34.7 g/dL (32-36); Mean Corpuscular Volume 105.6 fL (80-100); Mean Platelet Volume 9.6 fL (7.4-10.4); Monocytes # (auto) 0.41 K/uL (0.11-0.59); Monocytes % (auto) 6.9 %; Neutrophils % (auto) 50.7 %; Nucleated RBC # (auto) 0.05 K/uL (0-0); Nucleated RBC % (auto) 0.8 %; Pappenheimer Bodies 1+; Platelet Count 273 K/uL (130-400); Polychromasia 1+; RDW Coefficient of Variation 20.6 % (11.5-14.5); RDW Standard Deviation 78.4 fL (36.4-46.3); Red Blood Count 2.48 M/uL (4.2-5.4); Sickle Cells 1+; Target Cells 1+; White Blood Count 5.91 K/uL (4.8-10.8)
[2021-06-15 04:50] LABS: Appearance Urine Clear (Clear); Bilirubin Urine Negative (Negative); Blood Urine Negative (Negative); Color Urine Orange; Glucose Urine UA Negative (Negative); Ketones Urine Negative (Negative); Leukocyte Esterase Urine Negative (Negative); Nitrite Urine Negative (Negative); Protein Urine Negative (Negative); Urobilinogen Urine Negative (Negative)
[2021-06-15 04:51] LABS: Alanine Aminotransferase 11 U/L (7-52); Albumin Globulin Ratio 1.3 (0.9-2); Albumin Level 4.4 gm/dl (3.4-5.0); Alkaline Phosphatase 59 U/L (34-104); Anion Gap 7 (3-11); BUN Creatinine Ratio 20.7 (10-20); Bilirubin,Total 1.8 mg/dl (0.2-1.0); Blood Urea Nitrogen 6 mg/dl (6-23); Calcium 9.5 mg/dl (8.5-10.1); Carbon Dioxide 26 mmol/L (21-32); Chloride 106 mmol/L (98-107); Creatine Kinase 58 U/L (26-192); Est GFR (African American) > 150.0 ml/min; Est GFR (Non-African American) > 150.0 ml/min; Globulin 3.3 gm/dl (2.5-4.0); Glucose 106 mg/dl (70-99(Fasting)); Lipase 32 U/L (11-82); Magnesium 1.9 mg/dl (1.7-2.4); Sodium 139 mmol/L (136-145); Total Protein 7.7 gm/dl (6.0-8.3); Troponin I High Sensitivity 5.8 pg/ml (0-14)
[2021-06-15 05:01] LABS: Acetaminophen < 3 ug/ml (10-30); Salicylate < 3.0 mg/dl (3.0-30)
[2021-06-15 05:11] LABS: Amphetamines+Metham, Urine Neg (Neg); Barbiturates, Urine Neg (Neg); Benzodiazepine, Urine Pos (Neg); Cocaine, Urine Neg (Neg); MDMA (Ecstacy), Urine Neg (Neg); Methadone, Urine Neg (Neg); Opiate, Urine Neg (Neg); Phencyclidine, Urine Neg (Neg)
--- NOTE | 2021-06-15 05:36 | History & Physical Report ---
Date of Service June 15, 2021 Assessment & Plan (1) Unresponsive state: Plan: Unresponsive state/seizure-like activity/history of psychogenic nonepileptic seizure- Admit to monitored bed Seizure precautions When becomes more alert will be assessed by psychiatry Patient had been placed on fentanyl patch and has been on oxycodone as needed breakthrough pain, which will be withheld as per all the medications Urine drug screen is pending (2) Seizure-like activity: Plan: See above (3) Psychogenic nonepileptic seizure: Plan: See above Psychogenic nonepileptic seizure history/depression/borderline personality disorder- Will consult psychiatry (4) Depression: Plan: See above (5) Borderline personality disorder: Plan: See above (6) Chronic pain: Plan: Holding all medications while NPO (7) Opioid-induced hyperalgesia: Plan: Holding opioids (8) Sickle cell anemia: Plan: No evidence of sickle cell crisis pulse ox is 100% on room air, hemoglobin is 9.1 (9) Hyperbilirubinemia: Plan: 1.8 on admission labs with usual range 2.0-4.0 (10) GERD (gastroesophageal reflux disease): Plan: holding pantoprazole while n.p.o. History of Present Illness Chief Complaint: The patient is brought to the emergency room via EMS due to possible seizure- like activity Primary Care Provider: [facility] Patient is a 20-year-old female with a past medical history including sickle cell disease, sickle cell crisis, anemia, COVID-19 infection 01/31/2021, avascular necrosis of hip, hyperbilirubinemia, psychogenic nonepileptic seizure, borderline personality disorder, GERD, vitamin D deficiency, opioid-induced hyperalgesia. Patient was recently admitted to [facility] from 05/08- 06/01/2021. In emergency department, patient is sedated for my examination, and cannot contribute to HPI or review of systems. Information is gleaned from emergency department reports and previous records. The patient was reportedly seen in the outpatient setting, and had a 302 performed a few days ago, however, the patient reportedly was unable to be found, and it was not exercise at that time. The 302 paperwork will be placed on the chart Allergies Allergy/AdvReac Type Severity Reaction Status Date / Time No Known Allergies Allergy Verified 05/08/21 15:02 Home Medications Medication Instructions Recorded Confirmed Type naloxone 4 mg/actuation nasal 1 spray INTRANASAL .Q3 MINUTES PRN 09/04/20 05/08/21 History spray (Narcan) duloxetine 20 mg capsule,delayed 20 mg PO DAILY 01/31/21 05/08/21 History release folic acid 1 mg tablet 2 mg PO DAILY 01/31/21 05/08/21 History hydroxyurea 500 mg capsule 1,000 mg PO BID 01/31/21 05/08/21 History pantoprazole 40 mg tablet,delayed 40 mg PO DAILY 01/31/21 05/08/21 History release fentanyl 25 mcg/hr transdermal 1 patch TRANSDERMAL Q72H #5 ea 06/01/21 Rx patch oxycodone 10 mg tablet 10 mg PO Q6H PRN #45 tab 06/01/21 Rx ergocalciferol (vitamin D2) 1,250 50,000 unit PO WK 06/15/21 History mcg (50,000 unit) capsule Past Med/Surg History Medical History Acute leg pain Borderline personality disorder Chest pain Chronic pain Depression with suicidal ideation Murmur, cardiac Nausea Overdose Overdose Person under investigation for COVID-19 Pneumonia Pseudoseizures Seizure-like activity Sickle cell anemia Sickle cell crisis Suicidal ideation Suicide gesture Surgical History No pertinent past surgical history Family History Mother Hypertension Father Ulcer Other Family history non-contributory Social History Smoking Status: Unknown if ever smoked Tobacco Type: Cigarettes Second Hand Exposure: Yes; Hx Alcohol Use: Yes Alcohol type: other Hx Substance Use: No Preferred Language: Ivorian Communication Ability: Effective Order Picker Required: No Beliefs That Will Affect Care: None marital status: Single Current Living Situation: Alone Current Living Situation Comment: Pt states she lives with roommates 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 current occupation: [employer] major Feels Safe at Home: Declines to Answer Assistive Devices: None Review of Systems Review of Systems: Unobtainable due to reduced consciousness Physical Exam Physical Exam: The patient is sedated an unresponsive, developed and well nourished, normocephalic and atraumatic, lying in bed and in no acute distress. HEENT--PERRL, EOMI, mucous membranes and oropharynx dry. Neck--supple. No JVD. No bruits. Thyroid normal, trachea midline, no adenopathy. Heart--normal S1 and S2. No murmurs, rubs or gallops. Lungs--clear bilaterally, no respiratory distress, no accessory muscle use. Abdomen--normal bowel sounds and soft. Nontender. Nondistended. Extremities--no cyanosis or clubbing. No edema. Dermatologic--normal skin turgor, normal color, no abnormal lymph nodes, no rash. Neurologic--cranial nerves II through XII grossly intact. Rheumatologic--limited exam Psychiatric--unresponsive. Results & Data Results & Data ([facility]) Vital Signs (Past 12 Hours) Vital Signs Temp Pulse Pulse Resp BP BP Pulse Ox 06/15/21 05:00 70 18 94/55 L 100 06/15/21 04:43 18 111/66 100 06/15/21 03:39 73 18 06/15/21 02:56 36.1 C L 87 20 96/62 L 97 Laboratory Results Laboratory Results WBC 5.91 K/uL (4.8-10.8) 06/15/21 04:07 RBC 2.48 M/uL (4.2-5.4) L 06/15/21 04:07 Hgb 9.1 g/dL (12.0-16.0) L 06/15/21 04:07 Hct 26.2 % (37-47) L 06/15/21 04:07 MCV 105.6 fL (80-100) H 06/15/21 04:07 MCH 36.7 pg (25-34) H 06/15/21 04:07 MCHC 34.7 g/dL (32-36) 06/15/21 04:07 RDW Std Deviation 78.4 fL (36.4-46.3) H 06/15/21 04:07 RDW Coeff of Nando 20.6 % (11.5-14.5) H 06/15/21 04:07 Plt Count 273 K/uL (130-400) 06/15/21 04:07 MPV 9.6 fL (7.4-10.4) 06/15/21 04:07 Immature Gran % (Auto) 0.2 % 06/15/21 04:07 Neut % (Auto) 50.7 % 06/15/21 04:07 Lymph % (Auto) 40.3 % 06/15/21 04:07 [place] % (Auto) 6.9 % 06/15/21 04:07 Eos % (Auto) 1.4 % 06/15/21 04:07 Baso % (Auto) 0.5 % 06/15/21 04:07 Reticulocyte % (Auto) 7.0 % (0.5-2.0) H 06/15/21 04:07 Neut # (Auto) 3.00 K/uL (1.4-6.5) 06/15/21 04:07 Lymph # (Auto) 2.38 K/uL (1.2-3.4) 06/15/21 04:07 [place] # (Auto) 0.41 K/uL (0.11-0.59) 06/15/21 04:07 Eos # (Auto) 0.08 K/uL (0-0.5) 06/15/21 04:07 Baso # (Auto) 0.03 K/uL (0-0.2) 06/15/21 04:07 Reticulocyte # 0.17 10^6/uL (0.02-0.10) H 06/15/21 04:07 Immature Gran # (Auto) 0.01 K/uL (0.00-0.02) 06/15/21 04:07 Absolute Nucleated RBC 0.05 K/uL (0-0) H 06/15/21 04:07 Nucleated RBC % (auto) 0.8 % 06/15/21 04:07 Polychromasia 1+ 06/15/21 04:07 Pappenheimer Bodies 1+ 06/15/21 04:07 Sickle Cells 1+ 06/15/21 04:07 Target Cells 1+ 06/15/21 04:07 PT 11.5 Seconds (9.0-12.0) 06/15/21 04:07 INR 1.1 (0.9-1.1) 06/15/21 04:07 APTT 22.2 Seconds (21.0-31.0) 06/15/21 04:07 PTT Ratio 0.8 06/15/21 04:07 VBG pH 7.40 (7.36-7.41) 06/15/21 04:07 VBG pCO2 45 mmHg (38-50) 06/15/21 04:07 VBG pO2 46 mmHg 06/15/21 04:07 VBG HCO3 27 mmol/L 06/15/21 04:07 VBG O2 Saturation 78.5 % 06/15/21 04:07 VBG Base Excess 1.9 mEq/L 06/15/21 04:07 Carboxyhemoglobin 0.8 % THgb 06/15/21 04:07 Barometric Pressure 736.5 mm/Hg 06/15/21 04:07 Sodium 139 mmol/L (136-145) 06/15/21 04:07 Potassium mmol/L (3.5-5.1) 06/15/21 04:07 Chloride 106 mmol/L (98-107) 06/15/21 04:07 Carbon Dioxide 26 mmol/L (21-32) 06/15/21 04:07 Anion Gap 7 (3-11) 06/15/21 04:07 BUN 6 mg/dl (6-23) 06/15/21 04:07 Creatinine 0.29 mg/dl (0.6-1.2) L 06/15/21 04:07 Est Cr Clr Drug Dosing Not Reportable 06/15/21 04:07 Est GFR ( Amer) > 150.0 ml/min 06/15/21 04:07 Est GFR (Non-Af Amer) > 150.0 ml/min 06/15/21 04:07 BUN/Creatinine Ratio 20.7 (10-20) H 06/15/21 04:07 Glucose 106 mg/dl (70-99(Fasting)) H 06/15/21 04:07 Osmolality 291 mOsm/kg (280-300) 06/15/21 04:07 Calcium 9.5 mg/dl (8.5-10.1) 06/15/21 04:07 Magnesium 1.9 mg/dl (1.7-2.4) 06/15/21 04:07 Total Bilirubin 1.8 mg/dl (0.2-1.0) H 06/15/21 04:07 AST U/L (13-39) 06/15/21 04:07 ALT 11 U/L (7-52) 06/15/21 04:07 Alkaline Phosphatase 59 U/L (34-104) 06/15/21 04:07 Ammonia Cancelled 06/15/21 04:07 Total Creatine Kinase 58 U/L (26-192) 06/15/21 04:07 Troponin I High Sens 5.8 pg/ml (0-14) 06/15/21 04:07 Total Protein 7.7 gm/dl (6.0-8.3) 06/15/21 04:07 Albumin 4.4 gm/dl (3.4-5.0) 06/15/21 04:07 Globulin 3.3 gm/dl (2.5-4.0) 06/15/21 04:07 Albumin/Globulin Ratio 1.3 (0.9-2) 06/15/21 04:07 Lipase 32 U/L (11-82) 06/15/21 04:07 TSH 0.438 uIu/ml (0.300-4.500) 06/15/21 04:07 HCG, Qual Negative (Negative) 06/15/21 04:07 Urine Color [place]y 06/15/21 04:41 Urine Appearance Clear (Clear) 06/15/21 04:41 Urine pH 7.0 (4.5-7.5) 06/15/21 04:41 Ur Specific [place] 1.010 (1.000-1.030) 06/15/21 04:41 Urine Protein Negative (Negative) 06/15/21 04:41 Urine Glucose (UA) Negative (Negative) 06/15/21 04:41 Urine Ketones Negative (Negative) 06/15/21 04:41 Urine Blood Negative (Negative) 06/15/21 04:41 Urine Nitrite Negative (Negative) 06/15/21 04:41 Urine Bilirubin Negative (Negative) 06/15/21 04:41 Urine Urobilinogen Negative (Negative) 06/15/21 04:41 Ur Leukocyte Esterase Negative (Negative) 06/15/21 04:41 Salicylates < 3.0 mg/dl (3.0-30) L 06/15/21 04:07 Urine Opiates Screen Neg (Neg) 06/15/21 04:41 Ur Methadone, Qual Neg (Neg) 06/15/21 04:41 Acetaminophen < 3 ug/ml (10-30) L 06/15/21 04:07 Urine Barbiturates Neg (Neg) 06/15/21 04:41 Ur Phencyclidine (PCP) Neg (Neg) 06/15/21 04:41 U Amphetamin/Meth Scrn Neg (Neg) 06/15/21 04:41 MDMA (Ecstasy) Screen Neg (Neg) 06/15/21 04:41 U Benzodiazepines Scrn Pos (Neg) H 06/15/21 04:41 Ur Cocaine Metabolite Neg (Neg) 06/15/21 04:41 U Marijuana (THC) Screen Pos (Neg) H 06/15/21 04:41 Ethyl Alcohol mg/dL < 10.0 mg/dl (<10.0) 06/15/21 04:[address] 06/15/21 03:08 CT OF THE HEAD WITHOUT CONTRAST CLINICAL HISTORY: AMS, probable overdose vs seizure COMPARISON STUDY: Head CT November 13, 2020. CT DOSE: 614.27 mGy.cm TECHNIQUE: Helical axial images of the head were obtained without IV contrast. Automated exposure control was utilized for the study. A dose lowering technique was utilized adhering to the principles of ALARA. FINDINGS: No acute intracranial hemorrhage, midline shift or mass effect is present. The ventricular system is unremarkable. The basal cisterns are patent. No extra-axial collections are present. There are no findings to suggest acute dural sinus thrombosis or acute territorial infarct. No significant calvarial abnormalities are present. Note is made of ethmoid and bilateral maxillary sinus mucosal thickening. IMPRESSION: No acute intracranial findings. ACT 112: Negative or not required by law. Electronically signed by: Carl Jay M.D. 06/15/2021 6:29 AM Code Status & VTE Plan Code Status Full code VTE Prophylaxis Plan VTE Prophylaxis will be ordered: Yes PG Care Time/CCT Total # of Minutes Spent Total Time Spent with Patient: Total time spent is greater than 50% in coordination of care (as documented) at patient's floor/unit and/or counseling patient: Coding Level of Care Code 73487 Initial Inpt Care Lvl 3 Diagnoses Depression F32.A Psychogenic nonepileptic seizure F44.5 Hyperbilirubinemia E80.6 Borderline personality disorder F60.3 GERD (gastroesophageal reflux disease) K21.9 Esophagitis presence: esophagitis presence not specified Chronic pain G89.29 Opioid-induced hyperalgesia R20.8; T40.2X5A Sickle cell anemia D57.00 Sickle-cell associated disorders: with unspecified crisis Unresponsive state R41.89 Seizure-like activity R56.9 (1) GERD (gastroesophageal reflux disease) Esophagitis presence: esophagitis presence not specified Qualified Code(s): K21.9 - Gastro-esophageal reflux disease without esophagitis (2) Sickle cell anemia Sickle-cell associated disorders: with unspecified crisis Qualified Code(s): D57.00 - Hb-SS disease with crisis, unspecified
--- NOTE | 2021-06-15 06:31 | CT Scan Report ---
CT OF THE HEAD WITHOUT CONTRAST CLINICAL HISTORY: AMS, probable overdose vs seizure COMPARISON STUDY: Head CT November 13, 2020. CT DOSE: 614.27 mGy.cm TECHNIQUE: Helical axial images of the head were obtained without IV contrast. Automated exposure con trol was utilized for the study. A dose lowering technique was utilized adhering to the principles o f ALARA. FINDINGS: No acute intracranial hemorrhage, midline shift or mass effect is present. The ventricular system is unremarkable. The basal cisterns are patent. No extra-axial collections are present. There are no findings to suggest acute dural sinus thrombosis or acute territorial infarct. No significant calvarial abnormalities are present. Note is made of ethmoid and bilateral maxillary sinus mucosal th ickening. IMPRESSION: No acute intracranial findings. ACT 112: Negative or not required by law. Electronically signed by: Carl Jay M.D. 06/15/2021 6:29 AM
[2021-06-15 07:14] LABS: Potassium 3.7 mmol/L (3.5-5.1)
--- NOTE | 2021-06-15 07:22 | Emergency Department Note ---
History of Present Illness General Chief complaint: Seizure Time Seen by Provider: 06/15/21 02:56 History of Present Illness This is a 20-year-old female presenting to the emergency department via EMS for evaluation of seizure versus unresponsive episode. The patient is well-known to this facility due to history of sickle cell disease, chronic pain, PNES/pseudoseizures, and opioid dependence. The patient was recently admitted to this facility and discharged with a few fentanyl patches. The patient was at home this evening and felt unwell when she asked one of her roommates to get Narcan for her. The patient has Narcan available because of her chronic opioid use. Narcan was not administered and according to roommate the patient had seizure-like activity. This did continue for EMS when they did arrive on scene. The patient was given IM Versed which did seem to improve the patient's symptoms. On arrival to the ER the patient is not able to answer questions or provide any history. Additionally there is a 302 statement from about 1 week ago that is on the chart. Evidently the patient was not able to be found by police to serve the 302. Home Medications Medication Instructions Recorded Confirmed Type naloxone 4 mg/actuation nasal 1 spray INTRANASAL .Q3 MINUTES PRN 09/04/20 05/08/21 History spray (Narcan) duloxetine 20 mg capsule,delayed 20 mg PO DAILY 01/31/21 05/08/21 History release folic acid 1 mg tablet 2 mg PO DAILY 01/31/21 05/08/21 History hydroxyurea 500 mg capsule 1,000 mg PO BID 01/31/21 05/08/21 History pantoprazole 40 mg tablet,delayed 40 mg PO DAILY 01/31/21 05/08/21 History release fentanyl 25 mcg/hr transdermal 1 patch TRANSDERMAL Q72H #5 ea 06/01/21 Rx patch oxycodone 10 mg tablet 10 mg PO Q6H PRN #45 tab 06/01/21 Rx ergocalciferol (vitamin D2) 1,250 50,000 unit PO WK 06/15/21 History mcg (50,000 unit) capsule Allergies Allergy/AdvReac Type Severity Reaction Status Date / Time No Known Allergies Allergy Verified 05/08/21 15:02 Past Med/Surg History Medical History Acute leg pain Borderline personality disorder Chest pain Chronic pain Depression with suicidal ideation Murmur, cardiac Nausea Overdose Overdose Person under investigation for COVID-19 Pneumonia Pseudoseizures Seizure-like activity Sickle cell anemia Sickle cell crisis Suicidal ideation Suicide gesture Surgical History No pertinent past surgical history Family History Mother Hypertension Father Ulcer Other Family history non-contributory Social History Smoking Status: Unknown if ever smoked Tobacco Type: Cigarettes Second Hand Exposure: Yes; Hx Alcohol Use: Yes Alcohol type: other Hx Substance Use: No Preferred Language: Chinese Communication Ability: Effective Nitroglycerin Neutralizer Required: No Beliefs That Will Affect Care: None marital status: Single Current Living Situation: Alone Current Living Situation Comment: Pt states she lives with roommates 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 current occupation: [employer] major Feels Safe at Home: Declines to Answer Assistive Devices: None Review of Systems Unobtainable due to cognitive status Physical Exam Vital Signs Vital Signs - 24 hr 06/15/21 02:56 06/15/21 03:39 06/15/21 04:43 Temperature 36.1 C L Temperature Source Axillary Pulse Rate 87 73 Pulse Rate [Finger] Pulse Rhythm Regular Pulse Rhythm [Finger] Pulse Strength Normal Pulse Strength [Finger] Respiratory Rate 20 18 18 Respiratory Effort / Characteristics Non-Labored Non-Labored Respiratory Depth Normal Normal Respiratory Pattern Regular Regular Blood Pressure 96/62 L Blood Pressure [Right Arm] 111/66 Blood Pressure Mean 73 Blood Pressure Mean [Right Arm] 81 Blood Pressure Position Lying Blood Pressure Position [Right Arm] Sitting Pulse Oximetry 97 100 Oxygen Delivery Method Room Air Room Air Room Air Sepsis New/Unexplained Change in Mental Status N/A Sepsis Action Taken by Nursing No Action Required 06/15/21 05:00 Temperature Temperature Source Pulse Rate Pulse Rate [Finger] 70 Pulse Rhythm Pulse Rhythm [Finger] Regular Pulse Strength Pulse Strength [Finger] Normal Respiratory Rate 18 Respiratory Effort / Characteristics Non-Labored Respiratory Depth Normal Respiratory Pattern Regular Blood Pressure Blood Pressure [Right Arm] 94/55 L Blood Pressure Mean Blood Pressure Mean [Right Arm] 68 Blood Pressure Position Blood Pressure Position [Right Arm] Pulse Oximetry 100 Oxygen Delivery Method Sepsis New/Unexplained Change in Mental Status Sepsis Action Taken by Nursing VITALS: Vitals are noted on the nurse's note and reviewed by myself. Vital signs stable. GENERAL: Black female who is quite obtunded. She will not answer questions and is unable to follow most commands. GCS 10 ([id number]) HEAD: Normocephalic atraumatic. EARS: External ear normal. External auditory canals clear, tympanic membranes pearly ulrich without erythema or effusion bilaterally. EYES: Pupils equal round and reactive to light and accommodation. Conjunctivae without injection, sclerae without icterus. Extraocular movements intact. NOSE: Patent, turbinates without inflammation or discharge. MOUTH: Mucous membranes moist. No injury to the tongue. HEART: Regular rate and rhythm without murmurs gallops or rubs. LUNGS: Clear to auscultation bilaterally without wheezes, rales or rhonchi. No retractions or accessory muscle use. ABDOMEN: Positive normal bowel sounds x 4. Soft without appreciable tenderness. MUSCULOSKELETAL: No muscle atrophy, erythema, or edema noted. Full range of motion in all extremities. NEURO: Patient was not alert or oriented. She is unable to answer questions. She appears quite obtunded. SKIN: The skin was with no evidence of fentanyl patch in place. Critical Care Time I have personally spent greater than 30 minutes of critical care time in the direct management of this patient. This includes bedside care, interpretation of diagnostic studies, and testing, discussion with consultants, patient, and family members, and other required patient management activities. This 30 minutes is in excess of all separately billable procedures. Medical Decision Making Differential Diagnosis The patient's history was concerning for altered mental status and probable overdose. Differential diagnosis: Etiologies such as seizure, toxicological process, infection, hypoglycemia, electrolyte abnormalities, cardiac sources, intracerebral event, neurologic process, as well as others were entertained. Laboratory Data Result diagrams: 06/15/21 04:07 06/15/21 04:07 Lab Results 06/15/21 06/15/21 06/15/21 Range/Units 04:07 04:07 04:07 WBC 5.91 (4.8-10.8) K/uL RBC 2.48 L (4.2-5.4) M/uL Hgb 9.1 L (12.0-16.0) g/dL Hct 26.2 L (37-47) % MCV 105.6 H (80-100) fL MCH 36.7 H (25-34) pg MCHC 34.7 (32-36) g/dL RDW Std Deviation 78.4 H (36.4-46.3) fL RDW Coeff of Nando 20.6 H (11.5-14.5) % Plt Count 273 (130-400) K/uL MPV 9.6 (7.4-10.4) fL Immature Gran % (Auto) 0.2 % Neut % (Auto) 50.7 % Lymph % (Auto) 40.3 % [place] % (Auto) 6.9 % Eos % (Auto) 1.4 % Baso % (Auto) 0.5 % Reticulocyte % (Auto) 7.0 H (0.5-2.0) % Neut # (Auto) 3.00 (1.4-6.5) K/uL Lymph # (Auto) 2.38 (1.2-3.4) K/uL [place] # (Auto) 0.41 (0.11-0.59) K/uL Eos # (Auto) 0.08 (0-0.5) K/uL Baso # (Auto) 0.03 (0-0.2) K/uL Reticulocyte # 0.17 H (0.02-0.10) 10^6/uL Immature Gran # (Auto) 0.01 (0.00-0.02) K/uL Absolute Nucleated RBC 0.05 H (0-0) K/uL Nucleated RBC % (auto) 0.8 % Polychromasia 1+ Pappenheimer Bodies 1+ Sickle Cells 1+ Target Cells 1+ PT 11.5 (9.0-12.0) Seconds INR 1.1 (0.9-1.1) APTT 22.2 (21.0-31.0) Seconds PTT Ratio 0.8 VBG pH (7.36-7.41) VBG pCO2 (38-50) mmHg VBG pO2 mmHg VBG HCO3 mmol/L VBG O2 Saturation % VBG Base Excess mEq/L Carboxyhemoglobin % THgb Barometric Pressure mm/Hg Sodium 139 (136-145) mmol/L Potassium (3.5-5.1) mmol/L Chloride 106 (98-107) mmol/L Carbon Dioxide 26 (21-32) mmol/L Anion Gap 7 (3-11) BUN 6 (6-23) mg/dl Creatinine 0.29 L (0.6-1.2) mg/dl Est Cr Clr Drug Dosing Not Reportable Est GFR ( Amer) > 150.0 ml/min Est GFR (Non-Af Amer) > 150.0 ml/min BUN/Creatinine Ratio 20.7 H (10-20) Glucose 106 H (70-99(Fasting)) mg/dl Osmolality (280-300) mOsm/kg Calcium 9.5 (8.5-10.1) mg/dl Magnesium 1.9 (1.7-2.4) mg/dl Total Bilirubin 1.8 H (0.2-1.0) mg/dl AST (13-39) U/L ALT 11 (7-52) U/L Alkaline Phosphatase 59 (34-104) U/L Ammonia Total Creatine Kinase 58 (26-192) U/L Troponin I High Sens 5.8 (0-14) pg/ml Total Protein 7.7 (6.0-8.3) gm/dl Albumin 4.4 (3.4-5.0) gm/dl Globulin 3.3 (2.5-4.0) gm/dl Albumin/Globulin Ratio 1.3 (0.9-2) Lipase 32 (11-82) U/L TSH (0.300-4.500) uIu/ml HCG, Qual (Negative) Urine Color Urine Appearance (Clear) Urine pH (4.5-7.5) Ur Specific [place] (1.000-1.030) Urine Protein (Negative) Urine Glucose (UA) (Negative) Urine Ketones (Negative) Urine Blood (Negative) Urine Nitrite (Negative) Urine Bilirubin (Negative) Urine Urobilinogen (Negative) Ur Leukocyte Esterase (Negative) Salicylates (3.0-30) mg/dl Urine Opiates Screen (Neg) Ur Methadone, Qual (Neg) Acetaminophen (10-30) ug/ml Urine Barbiturates (Neg) Ur Phencyclidine (PCP) (Neg) U Amphetamin/Meth Scrn (Neg) MDMA (Ecstasy) Screen (Neg) U Benzodiazepines Scrn (Neg) Ur Cocaine Metabolite (Neg) U Marijuana (THC) Screen (Neg) Ethyl Alcohol mg/dL (<10.0) mg/dl 06/15/21 06/15/21 06/15/21 Range/Units 04:07 04:07 04:07 WBC (4.8-10.8) K/uL RBC (4.2-5.4) M/uL Hgb (12.0-16.0) g/dL Hct (37-47) % MCV (80-100) fL MCH (25-34) pg MCHC (32-36) g/dL RDW Std Deviation (36.4-46.3) fL RDW Coeff of Nando (11.5-14.5) % Plt Count (130-400) K/uL MPV (7.4-10.4) fL Immature Gran % (Auto) % Neut % (Auto) % Lymph % (Auto) % [place] % (Auto) % Eos % (Auto) % Baso % (Auto) % Reticulocyte % (Auto) (0.5-2.0) % Neut # (Auto) (1.4-6.5) K/uL Lymph # (Auto) (1.2-3.4) K/uL [place] # (Auto) (0.11-0.59) K/uL Eos # (Auto) (0-0.5) K/uL Baso # (Auto) (0-0.2) K/uL Reticulocyte # (0.02-0.10) 10^6/uL Immature Gran # (Auto) (0.00-0.02) K/uL Absolute Nucleated RBC (0-0) K/uL Nucleated RBC % (auto) % Polychromasia Pappenheimer Bodies Sickle Cells Target Cells PT (9.0-12.0) Seconds INR (0.9-1.1) APTT (21.0-31.0) Seconds PTT Ratio VBG pH (7.36-7.41) VBG pCO2 (38-50) mmHg VBG pO2 mmHg VBG HCO3 mmol/L VBG O2 Saturation % VBG Base Excess mEq/L Carboxyhemoglobin % THgb Barometric Pressure mm/Hg Sodium (136-145) mmol/L Potassium (3.5-5.1) mmol/L Chloride (98-107) mmol/L Carbon Dioxide (21-32) mmol/L Anion Gap (3-11) BUN (6-23) mg/dl Creatinine (0.6-1.2) mg/dl Est Cr Clr Drug Dosing Est GFR ( Amer) ml/min Est GFR (Non-Af Amer) ml/min BUN/Creatinine Ratio (10-20) Glucose (70-99(Fasting)) mg/dl Osmolality (280-300) mOsm/kg Calcium (8.5-10.1) mg/dl Magnesium (1.7-2.4) mg/dl Total Bilirubin (0.2-1.0) mg/dl AST (13-39) U/L ALT (7-52) U/L Alkaline Phosphatase (34-104) U/L Ammonia Total Creatine Kinase (26-192) U/L Troponin I High Sens (0-14) pg/ml Total Protein (6.0-8.3) gm/dl Albumin (3.4-5.0) gm/dl Globulin (2.5-4.0) gm/dl Albumin/Globulin Ratio (0.9-2) Lipase (11-82) U/L TSH 0.438 (0.300-4.500) uIu/ml HCG, Qual (Negative) Urine Color Urine Appearance (Clear) Urine pH (4.5-7.5) Ur Specific [place] (1.000-1.030) Urine Protein (Negative) Urine Glucose (UA) (Negative) Urine Ketones (Negative) Urine Blood (Negative) Urine Nitrite (Negative) Urine Bilirubin (Negative) Urine Urobilinogen (Negative) Ur Leukocyte Esterase (Negative) Salicylates < 3.0 L (3.0-30) mg/dl Urine Opiates Screen (Neg) Ur Methadone, Qual (Neg) Acetaminophen < 3 L (10-30) ug/ml Urine Barbiturates (Neg) Ur Phencyclidine (PCP) (Neg) U Amphetamin/Meth Scrn (Neg) MDMA (Ecstasy) Screen (Neg) U Benzodiazepines Scrn (Neg) Ur Cocaine Metabolite (Neg) U Marijuana (THC) Screen (Neg) Ethyl Alcohol mg/dL < 10.0 (<10.0) mg/dl 06/15/21 06/15/21 06/15/21 Range/Units 04:07 04:07 04:07 WBC (4.8-10.8) K/uL RBC (4.2-5.4) M/uL Hgb (12.0-16.0) g/dL Hct (37-47) % MCV (80-100) fL MCH (25-34) pg MCHC (32-36) g/dL RDW Std Deviation (36.4-46.3) fL RDW Coeff of Nando (11.5-14.5) % Plt Count (130-400) K/uL MPV (7.4-10.4) fL Immature Gran % (Auto) % Neut % (Auto) % Lymph % (Auto) % [place] % (Auto) % Eos % (Auto) % Baso % (Auto) % Reticulocyte % (Auto) (0.5-2.0) % Neut # (Auto) (1.4-6.5) K/uL Lymph # (Auto) (1.2-3.4) K/uL [place] # (Auto) (0.11-0.59) K/uL Eos # (Auto) (0-0.5) K/uL Baso # (Auto) (0-0.2) K/uL Reticulocyte # (0.02-0.10) 10^6/uL Immature Gran # (Auto) (0.00-0.02) K/uL Absolute Nucleated RBC (0-0) K/uL Nucleated RBC % (auto) % Polychromasia Pappenheimer Bodies Sickle Cells Target Cells PT (9.0-12.0) Seconds INR (0.9-1.1) APTT (21.0-31.0) Seconds PTT Ratio VBG pH (7.36-7.41) VBG pCO2 (38-50) mmHg VBG pO2 mmHg VBG HCO3 mmol/L VBG O2 Saturation % VBG Base Excess mEq/L Carboxyhemoglobin 0.8 % THgb Barometric Pressure mm/Hg Sodium (136-145) mmol/L Potassium (3.5-5.1) mmol/L Chloride (98-107) mmol/L Carbon Dioxide (21-32) mmol/L Anion Gap (3-11) BUN (6-23) mg/dl Creatinine (0.6-1.2) mg/dl Est Cr Clr Drug Dosing Est GFR ( Amer) ml/min Est GFR (Non-Af Amer) ml/min BUN/Creatinine Ratio (10-20) Glucose (70-99(Fasting)) mg/dl Osmolality 291 (280-300) mOsm/kg Calcium (8.5-10.1) mg/dl Magnesium (1.7-2.4) mg/dl Total Bilirubin (0.2-1.0) mg/dl AST (13-39) U/L ALT (7-52) U/L Alkaline Phosphatase (34-104) U/L Ammonia Total Creatine Kinase (26-192) U/L Troponin I High Sens (0-14) pg/ml Total Protein (6.0-8.3) gm/dl Albumin (3.4-5.0) gm/dl Globulin (2.5-4.0) gm/dl Albumin/Globulin Ratio (0.9-2) Lipase (11-82) U/L TSH (0.300-4.500) uIu/ml HCG, Qual Negative (Negative) Urine Color Urine Appearance (Clear) Urine pH (4.5-7.5) Ur Specific [place] (1.000-1.030) Urine Protein (Negative) Urine Glucose (UA) (Negative) Urine Ketones (Negative) Urine Blood (Negative) Urine Nitrite (Negative) Urine Bilirubin (Negative) Urine Urobilinogen (Negative) Ur Leukocyte Esterase (Negative) Salicylates (3.0-30) mg/dl Urine Opiates Screen (Neg) Ur Methadone, Qual (Neg) Acetaminophen (10-30) ug/ml Urine Barbiturates (Neg) Ur Phencyclidine (PCP) (Neg) U Amphetamin/Meth Scrn (Neg) MDMA (Ecstasy) Screen (Neg) U Benzodiazepines Scrn (Neg) Ur Cocaine Metabolite (Neg) U Marijuana (THC) Screen (Neg) Ethyl Alcohol mg/dL (<10.0) mg/dl 06/15/21 06/15/21 06/15/21 Range/Units 04:07 04:07 04:41 WBC (4.8-10.8) K/uL RBC (4.2-5.4) M/uL Hgb (12.0-16.0) g/dL Hct (37-47) % MCV (80-100) fL MCH (25-34) pg MCHC (32-36) g/dL RDW Std Deviation (36.4-46.3) fL RDW Coeff of Nando (11.5-14.5) % Plt Count (130-400) K/uL MPV (7.4-10.4) fL Immature Gran % (Auto) % Neut % (Auto) % Lymph % (Auto) % [place] % (Auto) % Eos % (Auto) % Baso % (Auto) % Reticulocyte % (Auto) (0.5-2.0) % Neut # (Auto) (1.4-6.5) K/uL Lymph # (Auto) (1.2-3.4) K/uL [place] # (Auto) (0.11-0.59) K/uL Eos # (Auto) (0-0.5) K/uL Baso # (Auto) (0-0.2) K/uL Reticulocyte # (0.02-0.10) 10^6/uL Immature Gran # (Auto) (0.00-0.02) K/uL Absolute Nucleated RBC (0-0) K/uL Nucleated RBC % (auto) % Polychromasia Pappenheimer Bodies Sickle Cells Target Cells PT (9.0-12.0) Seconds INR (0.9-1.1) APTT (21.0-31.0) Seconds PTT Ratio VBG pH 7.40 (7.36-7.41) VBG pCO2 45 (38-50) mmHg VBG pO2 46 mmHg VBG HCO3 27 mmol/L VBG O2 Saturation 78.5 % VBG Base Excess 1.9 mEq/L Carboxyhemoglobin % THgb Barometric Pressure 736.5 mm/Hg Sodium (136-145) mmol/L Potassium (3.5-5.1) mmol/L Chloride (98-107) mmol/L Carbon Dioxide (21-32) mmol/L Anion Gap (3-11) BUN (6-23) mg/dl Creatinine (0.6-1.2) mg/dl Est Cr Clr Drug Dosing Est GFR ( Amer) ml/min Est GFR (Non-Af Amer) ml/min BUN/Creatinine Ratio (10-20) Glucose (70-99(Fasting)) mg/dl Osmolality (280-300) mOsm/kg Calcium (8.5-10.1) mg/dl Magnesium (1.7-2.4) mg/dl Total Bilirubin (0.2-1.0) mg/dl AST (13-39) U/L ALT (7-52) U/L Alkaline Phosphatase (34-104) U/L Ammonia Cancelled Total Creatine Kinase (26-192) U/L Troponin I High Sens (0-14) pg/ml Total Protein (6.0-8.3) gm/dl Albumin (3.4-5.0) gm/dl Globulin (2.5-4.0) gm/dl Albumin/Globulin Ratio (0.9-2) Lipase (11-82) U/L TSH (0.300-4.500) uIu/ml HCG, Qual (Negative) Urine Color [place] Urine Appearance Clear (Clear) Urine pH 7.0 (4.5-7.5) Ur Specific [place] 1.010 (1.000-1.030) Urine Protein Negative (Negative) Urine Glucose (UA) Negative (Negative) Urine Ketones Negative (Negative) Urine Blood Negative (Negative) Urine Nitrite Negative (Negative) Urine Bilirubin Negative (Negative) Urine Urobilinogen Negative (Negative) Ur Leukocyte Esterase Negative (Negative) Salicylates (3.0-30) mg/dl Urine Opiates Screen (Neg) Ur Methadone, Qual (Neg) Acetaminophen (10-30) ug/ml Urine Barbiturates (Neg) Ur Phencyclidine (PCP) (Neg) U Amphetamin/Meth Scrn (Neg) MDMA (Ecstasy) Screen (Neg) U Benzodiazepines Scrn (Neg) Ur Cocaine Metabolite (Neg) U Marijuana (THC) Screen (Neg) Ethyl Alcohol mg/dL (<10.0) mg/dl 06/15/21 Range/Units 04:41 WBC (4.8-10.8) K/uL RBC (4.2-5.4) M/uL Hgb (12.0-16.0) g/dL Hct (37-47) % MCV (80-100) fL MCH (25-34) pg MCHC (32-36) g/dL RDW Std Deviation (36.4-46.3) fL RDW Coeff of Nando (11.5-14.5) % Plt Count (130-400) K/uL MPV (7.4-10.4) fL Immature Gran % (Auto) % Neut % (Auto) % Lymph % (Auto) % [place] % (Auto) % Eos % (Auto) % Baso % (Auto) % Reticulocyte % (Auto) (0.5-2.0) % Neut # (Auto) (1.4-6.5) K/uL Lymph # (Auto) (1.2-3.4) K/uL [place] # (Auto) (0.11-0.59) K/uL Eos # (Auto) (0-0.5) K/uL Baso # (Auto) (0-0.2) K/uL Reticulocyte # (0.02-0.10) 10^6/uL Immature Gran # (Auto) (0.00-0.02) K/uL Absolute Nucleated RBC (0-0) K/uL Nucleated RBC % (auto) % Polychromasia Pappenheimer Bodies Sickle Cells Target Cells PT (9.0-12.0) Seconds INR (0.9-1.1) APTT (21.0-31.0) Seconds PTT Ratio VBG pH (7.36-7.41) VBG pCO2 (38-50) mmHg VBG pO2 mmHg VBG HCO3 mmol/L VBG O2 Saturation % VBG Base Excess mEq/L Carboxyhemoglobin % THgb Barometric Pressure mm/Hg Sodium (136-145) mmol/L Potassium (3.5-5.1) mmol/L Chloride (98-107) mmol/L Carbon Dioxide (21-32) mmol/L Anion Gap (3-11) BUN (6-23) mg/dl Creatinine (0.6-1.2) mg/dl Est Cr Clr Drug Dosing Est GFR ( Amer) ml/min Est GFR (Non-Af Amer) ml/min BUN/Creatinine Ratio (10-20) Glucose (70-99(Fasting)) mg/dl Osmolality (280-300) mOsm/kg Calcium (8.5-10.1) mg/dl Magnesium (1.7-2.4) mg/dl Total Bilirubin (0.2-1.0) mg/dl AST (13-39) U/L ALT (7-52) U/L Alkaline Phosphatase (34-104) U/L Ammonia Total Creatine Kinase (26-192) U/L Troponin I High Sens (0-14) pg/ml Total Protein (6.0-8.3) gm/dl Albumin (3.4-5.0) gm/dl Globulin (2.5-4.0) gm/dl Albumin/Globulin Ratio (0.9-2) Lipase (11-82) U/L TSH (0.300-4.500) uIu/ml HCG, Qual (Negative) Urine Color Urine Appearance (Clear) Urine pH (4.5-7.5) Ur Specific [place] (1.000-1.030) Urine Protein (Negative) Urine Glucose (UA) (Negative) Urine Ketones (Negative) Urine Blood (Negative) Urine Nitrite (Negative) Urine Bilirubin (Negative) Urine Urobilinogen (Negative) Ur Leukocyte Esterase (Negative) Salicylates (3.0-30) mg/dl Urine Opiates Screen Neg (Neg) Ur Methadone, Qual Neg (Neg) Acetaminophen (10-30) ug/ml Urine Barbiturates Neg (Neg) Ur Phencyclidine (PCP) Neg (Neg) U Amphetamin/Meth Scrn Neg (Neg) MDMA (Ecstasy) Screen Neg (Neg) U Benzodiazepines Scrn Pos H (Neg) Ur Cocaine Metabolite Neg (Neg) U Marijuana (THC) Screen Pos H (Neg) Ethyl Alcohol mg/dL (<10.0) mg/dl Imaging Data Radiologist's Impression: Head CT 06/15/21 03:08 CT OF THE HEAD WITHOUT CONTRAST CLINICAL HISTORY: AMS, probable overdose vs seizure COMPARISON STUDY: Head CT November 13, 2020. CT DOSE: 614.27 mGy.cm TECHNIQUE: Helical axial images of the head were obtained without IV contrast. Automated exposure control was utilized for the study. A dose lowering technique was utilized adhering to the principles of ALARA. FINDINGS: No acute intracranial hemorrhage, midline shift or mass effect is present. The ventricular system is unremarkable. The basal cisterns are patent. No extra-axial collections are present. There are no findings to suggest acute dural sinus thrombosis or acute territorial infarct. No significant calvarial abnormalities are present. Note is made of ethmoid and bilateral maxillary sinus mucosal thickening. IMPRESSION: No acute intracranial findings. ACT 112: Negative or not required by law. Electronically signed by: Carl Jay M.D. 06/15/2021 6:29 AM ECG Data Attestation: I personally reviewed and interpreted this ECG as follows: Indication: + toxicologic Additional Comments: Sinus rhythm with 1st degree A-V block @[address] elevation Possible Left atrial enlargement When compared with ECG of 05-FEB-2021 20:16, No significant change was found MDM Narrative Physical exam and history were performed. Nursing notes, EMR, and Medication List were personally reviewed. Patient appears to be unresponsive on arrival. The patient has multiple medical conditions as well as significant mental health disease. The patient is noncontributory to her situation. She is well-known to me due to frequency of visits and she appears quite obtunded. Access was established and labs were obtained. She was cared for under seizure precautions. CT scan of the head was performed. We did inspect the patient's body with assistance of female nursing staff and were not able to identify any intact fentanyl patches on the patient, which is high on the differential for cause of patient's symptoms. An order was placed for continuous cardiac monitoring. The monitor shows a rate of 88 with normal sinus rhythm. The patient's blood work is as above and was reviewed. She does not have a significantly elevated white blood cell count. Hemoglobin is 9.1 which is roughly her baseline. She is at 7% reticulocyte count, which is also as expected. INR is 1.1. VBG was performed and normal. Carboxyhemoglobin is normal. BUN is 6 and creatinine is 0.29. She does not have significant e lectrolyte imbalance. Glucose is 106. CK and troponin are normal. Urine was collected by cath sample without acute evidence of infection. Drug abuse screen is positive for marijuana and benzodiazepines. She is not . Tylenol and salicylates are nondetected. CT scan of the head was reviewed by myself and radiology showing no acute process. Chest x-ray was also without obvious acute process. The patient remained quite obtunded and unresponsive. She is maintaining her blood pressure at roughly 94/55 and is 100% on room air. The case was discussed with the on-call hospitalist who agreed to evaluate the patient here in the ER. I have considerable concern that the patient is abusing her at home opioids. Overall she does not seem well for discharge. Please see the hospitalist dictation for further patient course, plan, disposition. The chart was completed utilizing [employer] Voice Recognition Software. Grammatical errors, random word insertions, pronoun errors, and incomplete sentences are an occasional consequence of this system due to software limitations, ambient noise, and hardware issues. Any formal questions or concerns about the content, text, or information contained within the body of this dictation should be directly addressed to the provider for clarification. . Impression & Plan Unresponsive state, Seizure-like activity, Psychogenic nonepileptic seizure Discharge Plan Visit Data Chief Complaint: Seizure ED Provider: Julissa Barton ED Midlevel Provider: Jp Toth Discharge Problem: Unresponsive state, Seizure-like activity, Psychogenic nonepileptic seizure Forms Stand Alone Forms: [facility] [place] [employer] Prescriptions Prescriptions: No Action naloxone [Narcan] 4 mg/actuation spray,non-aerosol 1 spray intranasal .Q3 MINUTES PRN (Reason: OVERSEDATION) RF: 0 fentanyl 25 mcg/hr patch 72 hour 1 patch transdermal Q72H Qty: 5 RF: 0 oxycodone 10 mg tablet 10 mg PO Q6H PRN (Reason: pain) Qty: 45 RF: 0 duloxetine 20 mg capsule,delayed release(DR/EC) 20 mg PO DAILY RF: 0 hydroxyurea 500 mg capsule 1,000 mg PO BID RF: 0 pantoprazole 40 mg tablet,delayed release (DR/EC) 40 mg PO DAILY RF: 0 folic acid 1 mg Tablet 2 mg PO DAILY RF: 0 ergocalciferol (vitamin D2) 1,250 mcg (50,000 unit) capsule 50,000 unit PO WK RF: 0 Referrals Referrals: [facility] [Primary Care Provider] -
--- NOTE | 2021-06-15 08:03 | XRay Report ---
XR chest 1V portable HISTORY: Altered mental status, seizure/overdose COMPARISON: Chest 05/08/2021. FINDINGS: The lungs are clear. Cardiac silhouette is borderline enlarged. No pleural effusions. No pn eumothorax. There are low lung volumes. IMPRESSION: Borderline cardiomegaly. This may be due to the low lung volumes. ACT 112: Negative or not required by law. Electronically signed by: Cortes Fletcher M.D. 06/15/2021 8:02 AM
[2021-06-15] MEDS ORDERED: LACTATED RINGER'S 1,000 ML IV SCH (10:08)
[2021-06-15] MEDS ORDERED: ONDANSETRON INJ 2 MG/ML 2 ML VIAL IV PRN (10:08)
[2021-06-15] MEDS ORDERED: LACTATED RINGER'S 1,000 ML IV ONE (13:06)
[2021-06-15] MEDS: LACTATED RINGER'S 1,000 ML IV SCH ×2 (13:26→21:17)
--- NOTE | 2021-06-15 13:34 | Electrocardiogram Report ---
Test Reason : Blood Pressure : / mmHG Vent. Rate : 075 BPM Atrial Rate : 075 BPM P-R Int : 234 ms QRS Dur : 090 ms QT Int : 358 ms P-R-T Axes : 054 073 062 degrees QTc Int : 399 ms Poor data quality, interpretation may be adversely affected Sinus rhythm with 1st degree A-V block Possible Left atrial enlargement Borderline ECG When compared with ECG of 05-FEB-2021 20:16, No significant change was found Confirmed by Mello Pedersen ([id number]) on 06/15/2021 1:33:33 PM Referred By: REFERRED SELF Confirmed By:Mello Pedersen
--- NOTE | 2021-06-15 15:02 | Communication Note ---
Date of Service: June 15, [address] patient discussed briefly [address] Dr[address] Kerr as she is more alert but still in process of transitioning up to the medical floor. Reviewed that she tested po sitive for benzodiazepines (which would be problematic in combination with fentanyl). Liaison to meet with patient this pm and Dr. Kerr confirmed will be hospitalized overnight on the [address] Squires will assume clinical responsibility for consult service at 1700 hrs and has met patient previously on inpatient mental health unit.
--- NOTE | 2021-06-15 17:09 | Hospitalist Progress Note ---
Date of Service June 15, 2021 Assessment & Plan (1) Sedated: Plan: 20 yo female with a pmhx including sickle cell disease, sickle cell crisis, anemia, COVID-19 infection 01/31/2021, avascular necrosis of hip, hyperbilirubinemia, psychogenic nonepileptic seizure, borderline personality disorder, GERD, vitamin D deficiency, opioid-induced hyperalgesia for seizure like activity. #Sedated, improving #seizure like activity #Psychogenic nonepileptic seizure -presented in an unresponsive state 2/2 benzo administration via EMS suspected seizure; however, patient has chronic history of psychogenic nonepileptic seizure -Patient had been placed on fentanyl patch and has been on oxycodone as needed breakthrough pain, which will be withheld for now; not currently in pain -Urine drug screen is pending, thus far positive for benzos and marijuana -psych following, previous [address] earlier this week for apparent suicidal ideation, patient was unaware -plan to stay overnight and reevaluate tomorrow #Sickle cell anemia -No evidence of sickle cell crisis pulse ox is 99 on room air, hemoglobin is 9.1 -cont. folic acid, hydroxyurea -cbc am #Hyperbilirubinemia -1.8 on admission labs with usual range 2.0-4.0 -cmp am #GERD -cont. pantoprazole Chronic conditions: depression- cont. duloxetine borderline personality disorder chronic pain Opioid-induced hyperalgesia DVT ppx: SCDs FEN/GI: LRs Code Status: full Dispo: med/surg Admission and Anticipated Discharge Date Admission Date: June 15, 2021 Supervising Physician Co-Signing Physician Notes I personally examined the patient and verified all amaro points of history and exam, discussed case, and agree with decision making with Dr Bailey seen in f/u from early AM admit. groggy but starting to wake up more. She/roommate provide recap of HPIshe notes that she was starting to feel dizzyPCP reduced some of her pain meds further, with still feeling dizzy and last night just feeling vaguely off. She took off her fentanyl patch, tried to take a shower to see if that helps still continue to feel off, asked her roommate to administer Narcan. She had seizure-like activitystrongly suspicious to be nonepileptic brought to hospital by EMSI believe given benzodiazepines in route due to the appearance of seizure-like activity. Still feels vaguely off and dizzy. Does not exactly know why she has a 302 warrant, wonders if her psychologist was worried about something. She notes that she has suicidal ideation to me, but no plan or attempt. Notes that she has not been trying to hurt her self or kill her self recently. Vitals noted, in general she is awake and alert pleasant no distress. HEENT normocephalic atraumatic mucous membranes moist. Breathing unlabored no accessory muscle use good effort. Skin shows no rashes no pallor or icterus. Neuro without focal deficits. Dizzinessdifficult situationshe generally requires pretty significant doses of narcotic pain medicine to keep her sickle cell related pain under control, but as an unfortunate side effect she seems to feel intolerable dizziness to pretty much everything. For now we will try to mitigate symptoms with IV fluids, and see how she does on reduced dosing. Nonepileptic seizurefollow. I suspect her mental, emotional, and physical stress, as well as possibly some effects from the Narcan precipitated last night's event 302 warrantnotes suicidal ideation generally, but no plan or attempts to me. Appreciate psychiatry input as well. Subjective Seen at bedside this afternoon. Sleepy but doing well. Not in pain. Review of Systems Review of Systems: All systems reviewed & are unremarkable except as noted in Subjective Physical Exam Physical Exam: Constitutional: lying in bed, in no acute distress. HEENT: PERRL, EOMI, mucous membranes and oropharynx dry. Neck: supple. No JVD. Heart: normal S1 and S2. No murmurs, rubs or gallops. Lungs: CTA, no respiratory distress, no accessory muscle use. Abdomen: normal bowel sounds and soft. Nontender. Nondistended. Extremities: no cyanosis or clubbing. No edema. moves extremities. Neurologic: cranial nerves II through XII grossly intact. Psychiatric: mood appropriate, mildly sedated Results & Data Results & Data ([facility]) Vital Signs (Past 12 Hours) Vital Signs Temp Pulse Pulse Resp BP Pulse Ox Pulse Ox 06/15/21 15:47 86 06/15/21 14:49 36.8 C 79 16 119/78 99 06/15/21 11:05 73 14 93/50 L 100 06/15/21 10:31 100 06/15/21 10:00 78 14 101/57 L 100 06/15/21 09:09 63 97/54 L 100 06/15/21 09:00 60 14 100 06/15/21 08:00 61 13 101/59 L 98 06/15/21 06:45 64 14 114/76 100 06/15/21 05:00 70 18 94/55 L 100 Laboratory Results 06/15/21 06/15/21 06/15/21 Range/Units 06:31 06:31 04:41 WBC (4.8-10.8) K/uL RBC (4.2-5.4) M/uL Hgb (12.0-16.0) g/dL Hct (37-47) % MCV (80-100) fL MCH (25-34) pg MCHC (32-36) g/dL RDW Std Deviation (36.4-46.3) fL RDW Coeff of Nando (11.5-14.5) % Plt Count (130-400) K/uL MPV (7.4-10.4) fL Immature Gran % (Auto) % Neut % (Auto) % Lymph % (Auto) % Fisher % (Auto) % Eos % (Auto) % Baso % (Auto) % Reticulocyte % (Auto) (0.5-2.0) % Neut # (Auto) (1.4-6.5) K/uL Lymph # (Auto) (1.2-3.4) K/uL Fisher # (Auto) (0.11-0.59) K/uL Eos # (Auto) (0-0.5) K/uL Baso # (Auto) (0-0.2) K/uL Reticulocyte # (0.02-0.10) 10^6/uL Immature Gran # (Auto) (0.00-0.02) K/uL Absolute Nucleated RBC (0-0) K/uL Nucleated RBC % (auto) % Polychromasia Pappenheimer Bodies Sickle Cells Target Cells PT (9.0-12.0) Seconds INR (0.9-1.1) APTT (21.0-31.0) Seconds PTT Ratio VBG pH (7.36-7.41) VBG pCO2 (38-50) mmHg VBG pO2 mmHg VBG HCO3 mmol/L VBG O2 Saturation % VBG Base Excess mEq/L Carboxyhemoglobin % THgb Barometric Pressure mm/Hg Sodium (136-145) mmol/L Potassium 3.7 (3.5-5.1) mmol/L Chloride (98-107) mmol/L Carbon Dioxide (21-32) mmol/L Anion Gap (3-11) BUN (6-23) mg/dl Creatinine (0.6-1.2) mg/dl Est Cr Clr Drug Dosing Est GFR ( Amer) ml/min Est GFR (Non-Af Amer) ml/min BUN/Creatinine Ratio (10-20) Glucose (70-99(Fasting)) mg/dl Osmolality (280-300) mOsm/kg Calcium (8.5-10.1) mg/dl Magnesium (1.7-2.4) mg/dl Total Bilirubin (0.2-1.0) mg/dl AST 19 (13-39) U/L ALT (7-52) U/L Alkaline Phosphatase (34-104) U/L Ammonia 38.0 Total Creatine Kinase (26-192) U/L Troponin I High Sens (0-14) pg/ml Total Protein (6.0-8.3) gm/dl Albumin (3.4-5.0) gm/dl Globulin (2.5-4.0) gm/dl Albumin/Globulin Ratio (0.9-2) Lipase (11-82) U/L TSH (0.300-4.500) uIu/ml HCG, Qual (Negative) Urine Color Urine Appearance (Clear) Urine pH (4.5-7.5) Ur Specific Paragon (1.000-1.030) Urine Protein (Negative) Urine Glucose (UA) (Negative) Urine Ketones (Negative) Urine Blood (Negative) Urine Nitrite (Negative) Urine Bilirubin (Negative) Urine Urobilinogen (Negative) Ur Leukocyte Esterase (Negative) Salicylates (3.0-30) mg/dl Urine Opiates Screen (Neg) Ur Methadone, Qual (Neg) Acetaminophen (10-30) ug/ml Urine Barbiturates (Neg) Ur Phencyclidine (PCP) (Neg) U Amphetamin/Meth Scrn (Neg) MDMA (Ecstasy) Screen (Neg) U OH-Alprazolam Confrm Pending U Benzodiazepines Scrn (Neg) 7-Amino Clonazepam Pending Ur Nordiazepam Confirm Pending U OH-ethylflurazepam Pending U Lorazepam Cnf GC/MS Pending U Oxazepam Confm GC/MS Pending Ur Temazepam Confirm Pending U OH-Triazolam Confirm Pending U OH-Midazolam Confirm Pending Ur Cocaine Metabolite (Neg) U Marijuana (THC) Screen (Neg) U Marijuana THC Carboxy Pending Drug Screen Comment Pending Ethyl Alcohol mg/dL (<10.0) mg/dl 06/15/21 06/15/21 06/15/21 Range/Units 04:41 04:41 04:07 WBC (4.8-10.8) K/uL RBC (4.2-5.4) M/uL Hgb (12.0-16.0) g/dL Hct (37-47) % MCV (80-100) fL MCH (25-34) pg MCHC (32-36) g/dL RDW Std Deviation (36.4-46.3) fL RDW Coeff of Nando (11.5-14.5) % Plt Count (130-400) K/uL MPV (7.4-10.4) fL Immature Gran % (Auto) % Neut % (Auto) % Lymph % (Auto) % Fisher % (Auto) % Eos % (Auto) % Baso % (Auto) % Reticulocyte % (Auto) (0.5-2.0) % Neut # (Auto) (1.4-6.5) K/uL Lymph # (Auto) (1.2-3.4) K/uL Fisher # (Auto) (0.11-0.59) K/uL Eos # (Auto) (0-0.5) K/uL Baso # (Auto) (0-0.2) K/uL Reticulocyte # (0.02-0.10) 10^6/uL Immature Gran # (Auto) (0.00-0.02) K/uL Absolute Nucleated RBC (0-0) K/uL Nucleated RBC % (auto) % Polychromasia Pappenheimer Bodies Sickle Cells Target Cells PT (9.0-12.0) Seconds INR (0.9-1.1) APTT (21.0-31.0) Seconds PTT Ratio VBG pH 7.40 (7.36-7.41) VBG pCO2 45 (38-50) mmHg VBG pO2 46 mmHg VBG HCO3 27 mmol/L VBG O2 Saturation 78.5 % VBG Base Excess 1.9 mEq/L Carboxyhemoglobin % THgb Barometric Pressure 736.5 mm/Hg Sodium (136-145) mmol/L Potassium (3.5-5.1) mmol/L Chloride (98-107) mmol/L Carbon Dioxide (21-32) mmol/L Anion Gap (3-11) BUN (6-23) mg/dl Creatinine (0.6-1.2) mg/dl Est Cr Clr Drug Dosing Est GFR ( Amer) ml/min Est GFR (Non-Af Amer) ml/min BUN/Creatinine Ratio (10-20) Glucose (70-99(Fasting)) mg/dl Osmolality (280-300) mOsm/kg Calcium (8.5-10.1) mg/dl Magnesium (1.7-2.4) mg/dl Total Bilirubin (0.2-1.0) mg/dl AST (13-39) U/L ALT (7-52) U/L Alkaline Phosphatase (34-104) U/L Ammonia Total Creatine Kinase (26-192) U/L Troponin I High Sens (0-14) pg/ml Total Protein (6.0-8.3) gm/dl Albumin (3.4-5.0) gm/dl Globulin (2.5-4.0) gm/dl Albumin/Globulin Ratio (0.9-2) Lipase (11-82) U/L TSH (0.300-4.500) uIu/ml HCG, Qual (Negative) Urine Color [place] Urine Appearance Clear (Clear) Urine pH 7.0 (4.5-7.5) Ur Specific Paragon 1.010 (1.000-1.030) Urine Protein Negative (Negative) Urine Glucose (UA) Negative (Negative) Urine Ketones Negative (Negative) Urine Blood Negative (Negative) Urine Nitrite Negative (Negative) Urine Bilirubin Negative (Negative) Urine Urobilinogen Negative (Negative) Ur Leukocyte Esterase Negative (Negative) Salicylates (3.0-30) mg/dl Urine Opiates Screen Neg (Neg) Ur Methadone, Qual Neg (Neg) Acetaminophen (10-30) ug/ml Urine Barbiturates Neg (Neg) Ur Phencyclidine (PCP) Neg (Neg) U Amphetamin/Meth Scrn Neg (Neg) MDMA (Ecstasy) Screen Neg (Neg) U OH-Alprazolam Confrm U Benzodiazepines Scrn Pos H (Neg) 7-Amino Clonazepam Ur Nordiazepam Confirm U OH-ethylflurazepam U Lorazepam Cnf GC/MS U Oxazepam Confm GC/MS Ur Temazepam Confirm U OH-Triazolam Confirm U OH-Midazolam Confirm Ur Cocaine Metabolite Neg (Neg) U Marijuana (THC) Screen Pos H (Neg) U Marijuana THC Carboxy Drug Screen Comment Ethyl Alcohol mg/dL (<10.0) mg/dl 06/15/21 06/15/21 06/15/21 Range/Units 04:07 04:07 04:07 WBC (4.8-10.8) K/uL RBC (4.2-5.4) M/uL Hgb (12.0-16.0) g/dL Hct (37-47) % MCV (80-100) fL MCH (25-34) pg MCHC (32-36) g/dL RDW Std Deviation (36.4-46.3) fL RDW Coeff of Nando (11.5-14.5) % Plt Count (130-400) K/uL MPV (7.4-10.4) fL Immature Gran % (Auto) % Neut % (Auto) % Lymph % (Auto) % Fisher % (Auto) % Eos % (Auto) % Baso % (Auto) % Reticulocyte % (Auto) (0.5-2.0) % Neut # (Auto) (1.4-6.5) K/uL Lymph # (Auto) (1.2-3.4) K/uL Fisher # (Auto) (0.11-0.59) K/uL Eos # (Auto) (0-0.5) K/uL Baso # (Auto) (0-0.2) K/uL Reticulocyte # (0.02-0.10) 10^6/uL Immature Gran # (Auto) (0.00-0.02) K/uL Absolute Nucleated RBC (0-0) K/uL Nucleated RBC % (auto) % Polychromasia Pappenheimer Bodies Sickle Cells Target Cells PT (9.0-12.0) Seconds INR (0.9-1.1) APTT (21.0-31.0) Seconds PTT Ratio VBG pH (7.36-7.41) VBG pCO2 (38-50) mmHg VBG pO2 mmHg VBG HCO3 mmol/L VBG O2 Saturation % VBG Base Excess mEq/L Carboxyhemoglobin 0.8 % THgb Barometric Pressure mm/Hg Sodium (136-145) mmol/L Potassium (3.5-5.1) mmol/L Chloride (98-107) mmol/L Carbon Dioxide (21-32) mmol/L Anion Gap (3-11) BUN (6-23) mg/dl Creatinine (0.6-1.2) mg/dl Est Cr Clr Drug Dosing Est GFR ( Amer) ml/min Est GFR (Non-Af Amer) ml/min BUN/Creatinine Ratio (10-20) Glucose (70-99(Fasting)) mg/dl Osmolality 291 (280-300) mOsm/kg Calcium (8.5-10.1) mg/dl Magnesium (1.7-2.4) mg/dl Total Bilirubin (0.2-1.0) mg/dl AST (13-39) U/L ALT (7-52) U/L Alkaline Phosphatase (34-104) U/L Ammonia Cancelled Total Creatine Kinase (26-192) U/L Troponin I High Sens (0-14) pg/ml Total Protein (6.0-8.3) gm/dl Albumin (3.4-5.0) gm/dl Globulin (2.5-4.0) gm/dl Albumin/Globulin Ratio (0.9-2) Lipase (11-82) U/L TSH (0.300-4.500) uIu/ml HCG, Qual (Negative) Urine Color Urine Appearance (Clear) Urine pH (4.5-7.5) Ur Specific Paragon (1.000-1.030) Urine Protein (Negative) Urine Glucose (UA) (Negative) Urine Ketones (Negative) Urine Blood (Negative) Urine Nitrite (Negative) Urine Bilirubin (Negative) Urine Urobilinogen (Negative) Ur Leukocyte Esterase (Negative) Salicylates (3.0-30) mg/dl Urine Opiates Screen (Neg) Ur Methadone, Qual (Neg) Acetaminophen (10-30) ug/ml Urine Barbiturates (Neg) Ur Phencyclidine (PCP) (Neg) U Amphetamin/Meth Scrn (Neg) MDMA (Ecstasy) Screen (Neg) U OH-Alprazolam Confrm U Benzodiazepines Scrn (Neg) 7-Amino Clonazepam Ur Nordiazepam Confirm U OH-ethylflurazepam U Lorazepam Cnf GC/MS U Oxazepam Confm GC/MS Ur Temazepam Confirm U OH-Triazolam Confirm U OH-Midazolam Confirm Ur Cocaine Metabolite (Neg) U Marijuana (THC) Screen (Neg) U Marijuana THC Carboxy Drug Screen Comment Ethyl Alcohol mg/dL (<10.0) mg/dl 06/15/21 06/15/21 06/15/21 Range/Units 04:07 04:07 04:07 WBC (4.8-10.8) K/uL RBC (4.2-5.4) M/uL Hgb (12.0-16.0) g/dL Hct (37-47) % MCV (80-100) fL MCH (25-34) pg MCHC (32-36) g/dL RDW Std Deviation (36.4-46.3) fL RDW Coeff of Nando (11.5-14.5) % Plt Count (130-400) K/uL MPV (7.4-10.4) fL Immature Gran % (Auto) % Neut % (Auto) % Lymph % (Auto) % Fisher % (Auto) % Eos % (Auto) % Baso % (Auto) % Reticulocyte % (Auto) (0.5-2.0) % Neut # (Auto) (1.4-6.5) K/uL Lymph # (Auto) (1.2-3.4) K/uL Fisher # (Auto) (0.11-0.59) K/uL Eos # (Auto) (0-0.5) K/uL Baso # (Auto) (0-0.2) K/uL Reticulocyte # (0.02-0.10) 10^6/uL Immature Gran # (Auto) (0.00-0.02) K/uL Absolute Nucleated RBC (0-0) K/uL Nucleated RBC % (auto) % Polychromasia Pappenheimer Bodies Sickle Cells Target Cells PT (9.0-12.0) Seconds INR (0.9-1.1) APTT (21.0-31.0) Seconds PTT Ratio VBG pH (7.36-7.41) VBG pCO2 (38-50) mmHg VBG pO2 mmHg VBG HCO3 mmol/L VBG O2 Saturation % VBG Base Excess mEq/L Carboxyhemoglobin % THgb Barometric Pressure mm/Hg Sodium (136-145) mmol/L Potassium (3.5-5.1) mmol/L Chloride (98-107) mmol/L Carbon Dioxide (21-32) mmol/L Anion Gap (3-11) BUN (6-23) mg/dl Creatinine (0.6-1.2) mg/dl Est Cr Clr Drug Dosing Est GFR ( Amer) ml/min Est GFR (Non-Af Amer) ml/min BUN/Creatinine Ratio (10-20) Glucose (70-99(Fasting)) mg/dl Osmolality (280-300) mOsm/kg Calcium (8.5-10.1) mg/dl Magnesium (1.7-2.4) mg/dl Total Bilirubin (0.2-1.0) mg/dl AST (13-39) U/L ALT (7-52) U/L Alkaline Phosphatase (34-104) U/L Ammonia Total Creatine Kinase (26-192) U/L Troponin I High Sens (0-14) pg/ml Total Protein (6.0-8.3) gm/dl Albumin (3.4-5.0) gm/dl Globulin (2.5-4.0) gm/dl Albumin/Globulin Ratio (0.9-2) Lipase (11-82) U/L TSH (0.300-4.500) uIu/ml HCG, Qual Negative (Negative) Urine Color Urine Appearance (Clear) Urine pH (4.5-7.5) Ur Specific Paragon (1.000-1.030) Urine Protein (Negative) Urine Glucose (UA) (Negative) Urine Ketones (Negative) Urine Blood (Negative) Urine Nitrite (Negative) Urine Bilirubin (Negative) Urine Urobilinogen (Negative) Ur Leukocyte Esterase (Negative) Salicylates < 3.0 L (3.0-30) mg/dl Urine Opiates Screen (Neg) Ur Methadone, Qual (Neg) Acetaminophen < 3 L (10-30) ug/ml Urine Barbiturates (Neg) Ur Phencyclidine (PCP) (Neg) U Amphetamin/Meth Scrn (Neg) MDMA (Ecstasy) Screen (Neg) U OH-Alprazolam Confrm U Benzodiazepines Scrn (Neg) 7-Amino Clonazepam Ur Nordiazepam Confirm U OH-ethylflurazepam U Lorazepam Cnf GC/MS U Oxazepam Confm GC/MS Ur Temazepam Confirm U OH-Triazolam Confirm U OH-Midazolam Confirm Ur Cocaine Metabolite (Neg) U Marijuana (THC) Screen (Neg) U Marijuana THC Carboxy Drug Screen Comment Ethyl Alcohol mg/dL < 10.0 (<10.0) mg/dl 06/15/21 06/15/21 06/15/21 Range/Units 04:07 04:07 04:07 WBC (4.8-10.8) K/uL RBC (4.2-5.4) M/uL Hgb (12.0-16.0) g/dL Hct (37-47) % MCV (80-100) fL MCH (25-34) pg MCHC (32-36) g/dL RDW Std Deviation (36.4-46.3) fL RDW Coeff of Nando (11.5-14.5) % Plt Count (130-400) K/uL MPV (7.4-10.4) fL Immature Gran % (Auto) % Neut % (Auto) % Lymph % (Auto) % Fisher % (Auto) % Eos % (Auto) % Baso % (Auto) % Reticulocyte % (Auto) (0.5-2.0) % Neut # (Auto) (1.4-6.5) K/uL Lymph # (Auto) (1.2-3.4) K/uL Fisher # (Auto) (0.11-0.59) K/uL Eos # (Auto) (0-0.5) K/uL Baso # (Auto) (0-0.2) K/uL Reticulocyte # (0.02-0.10) 10^6/uL Immature Gran # (Auto) (0.00-0.02) K/uL Absolute Nucleated RBC (0-0) K/uL Nucleated RBC % (auto) % Polychromasia Pappenheimer Bodies Sickle Cells Target Cells PT 11.5 (9.0-12.0) Seconds INR 1.1 (0.9-1.1) APTT 22.2 (21.0-31.0) Seconds PTT Ratio 0.8 VBG pH (7.36-7.41) VBG pCO2 (38-50) mmHg VBG pO2 mmHg VBG HCO3 mmol/L VBG O2 Saturation % VBG Base Excess mEq/L Carboxyhemoglobin % THgb Barometric Pressure mm/Hg Sodium 139 (136-145) mmol/L Potassium (3.5-5.1) mmol/L Chloride 106 (98-107) mmol/L Carbon Dioxide 26 (21-32) mmol/L Anion Gap 7 (3-11) BUN 6 (6-23) mg/dl Creatinine 0.29 L (0.6-1.2) mg/dl Est Cr Clr Drug Dosing Not Reportable Est GFR ( Amer) > 150.0 ml/min Est GFR (Non-Af Amer) > 150.0 ml/min BUN/Creatinine Ratio 20.7 H (10-20) Glucose 106 H (70-99(Fasting)) mg/dl Osmolality (280-300) mOsm/kg Calcium 9.5 (8.5-10.1) mg/dl Magnesium 1.9 (1.7-2.4) mg/dl Total Bilirubin 1.8 H (0.2-1.0) mg/dl AST (13-39) U/L ALT 11 (7-52) U/L Alkaline Phosphatase 59 (34-104) U/L Ammonia Total Creatine Kinase 58 (26-192) U/L Troponin I High Sens 5.8 (0-14) pg/ml Total Protein 7.7 (6.0-8.3) gm/dl Albumin 4.4 (3.4-5.0) gm/dl Globulin 3.3 (2.5-4.0) gm/dl Albumin/Globulin Ratio 1.3 (0.9-2) Lipase 32 (11-82) U/L TSH 0.438 (0.300-4.500) uIu/ml HCG, Qual (Negative) Urine Color Urine Appearance (Clear) Urine pH (4.5-7.5) Ur Specific [place]agon (1.000-1.030) Urine Protein (Negative) Urine Glucose (UA) (Negative) Urine Ketones (Negative) Urine Blood (Negative) Urine Nitrite (Negative) Urine Bilirubin (Negative) Urine Urobilinogen (Negative) Ur Leukocyte Esterase (Negative) Salicylates (3.0-30) mg/dl Urine Opiates Screen (Neg) Ur Methadone, Qual (Neg) Acetaminophen (10-30) ug/ml Urine Barbiturates (Neg) Ur Phencyclidine (PCP) (Neg) U Amphetamin/Meth Scrn (Neg) MDMA (Ecstasy) Screen (Neg) U OH-Alprazolam Confrm U Benzodiazepines Scrn (Neg) 7-Amino Clonazepam Ur Nordiazepam Confirm U OH-ethylflurazepam U Lorazepam Cnf GC/MS U Oxazepam Confm GC/MS Ur Temazepam Confirm U OH-Triazolam Confirm U OH-Midazolam Confirm Ur Cocaine Metabolite (Neg) U Marijuana (THC) Screen (Neg) U Marijuana THC Carboxy Drug Screen Comment Ethyl Alcohol mg/dL (<10.0) mg/dl 06/15/21 Range/Units 04:07 WBC 5.91 (4.8-10.8) K/uL RBC 2.48 L (4.2-5.4) M/uL Hgb 9.1 L (12.0-16.0) g/dL Hct 26.2 L (37-47) % MCV 105.6 H (80-100) fL MCH 36.7 H (25-34) pg MCHC 34.7 (32-36) g/dL RDW Std Deviation 78.4 H (36.4-46.3) fL RDW Coeff of Nando 20.6 H (11.5-14.5) % Plt Count 273 (130-400) K/uL MPV 9.6 (7.4-10.4) fL Immature Gran % (Auto) 0.2 % Neut % (Auto) 50.7 % Lymph % (Auto) 40.3 % Fisher % (Auto) 6.9 % Eos % (Auto) 1.4 % Baso % (Auto) 0.5 % Reticulocyte % (Auto) 7.0 H (0.5-2.0) % Neut # (Auto) 3.00 (1.4-6.5) K/uL Lymph # (Auto) 2.38 (1.2-3.4) K/uL Fisher # (Auto) 0.41 (0.11-0.59) K/uL Eos # (Auto) 0.08 (0-0.5) K/uL Baso # (Auto) 0.03 (0-0.2) K/uL Reticulocyte # 0.17 H (0.02-0.10) 10^6/uL Immature Gran # (Auto) 0.01 (0.00-0.02) K/uL Absolute Nucleated RBC 0.05 H (0-0) K/uL Nucleated RBC % (auto) 0.8 % Polychromasia 1+ Pappenheimer Bodies 1+ Sickle Cells 1+ Target Cells 1+ PT (9.0-12.0) Seconds INR (0.9-1.1) APTT (21.0-31.0) Seconds PTT Ratio VBG pH (7.36-7.41) VBG pCO2 (38-50) mmHg VBG pO2 mmHg VBG HCO3 mmol/L VBG O2 Saturation % VBG Base Excess mEq/L Carboxyhemoglobin % THgb Barometric Pressure mm/Hg Sodium (136-145) mmol/L Potassium (3.5-5.1) mmol/L Chloride (98-107) mmol/L Carbon Dioxide (21-32) mmol/L Anion Gap (3-11) BUN (6-23) mg/dl Creatinine (0.6-1.2) mg/dl Est Cr Clr Drug Dosing Est GFR ( Amer) ml/min Est GFR (Non-Af Amer) ml/min BUN/Creatinine Ratio (10-20) Glucose (70-99(Fasting)) mg/dl Osmolality (280-300) mOsm/kg Calcium (8.5-10.1) mg/dl Magnesium (1.7-2.4) mg/dl Total Bilirubin (0.2-1.0) mg/dl AST (13-39) U/L ALT (7-52) U/L Alkaline Phosphatase (34-104) U/L Ammonia Total Creatine Kinase (26-192) U/L Troponin I High Sens (0-14) pg/ml Total Protein (6.0-8.3) gm/dl Albumin (3.4-5.0) gm/dl Globulin (2.5-4.0) gm/dl Albumin/Globulin Ratio (0.9-2) Lipase (11-82) U/L TSH (0.300-4.500) uIu/ml HCG, Qual (Negative) Urine Color Urine Appearance (Clear) Urine pH (4.5-7.5) Ur Specific Paragon (1.000-1.030) Urine Protein (Negative) Urine Glucose (UA) (Negative) Urine Ketones (Negative) Urine Blood (Negative) Urine Nitrite (Negative) Urine Bilirubin (Negative) Urine Urobilinogen (Negative) Ur Leukocyte Esterase (Negative) Salicylates (3.0-30) mg/dl Urine Opiates Screen (Neg) Ur Methadone, Qual (Neg) Acetaminophen (10-30) ug/ml Urine Barbiturates (Neg) Ur Phencyclidine (PCP) (Neg) U Amphetamin/Meth Scrn (Neg) MDMA (Ecstasy) Screen (Neg) U OH-Alprazolam Confrm U Benzodiazepines Scrn (Neg) 7-Amino Clonazepam Ur Nordiazepam Confirm U OH-ethylflurazepam U Lorazepam Cnf GC/MS U Oxazepam Confm GC/MS Ur Temazepam Confirm U OH-Triazolam Confirm U OH-Midazolam Confirm Ur Cocaine Metabolite (Neg) U Marijuana (THC) Screen (Neg) U Marijuana THC Carboxy Drug Screen Comment Ethyl Alcohol mg/dL (<10.0) mg/dl Resident Activity Tracking Resident Involvement: Resident Care Provided Care Provided: Adult Hospital Medicine
[2021-06-15] MEDS: HYDROXYUREA 500 MG CAP PO SCH (21:13)
[2021-06-15] MEDS ORDERED: SALINE NASAL 225 SPRAYS, GENTAMICIN SULFATE 60 MG, BARCODE IDENTIFIER 1 EA PRN ×2 (21:24→23:35)
[2021-06-15] MEDS: oxyCODONE HCL IR 5 MG TAB (IMMEDIATE RELEASE) PO PRN (21:53)
[2021-06-15] MEDS ORDERED: SODIUM CHLORIDE 0.65% NA SOLN 45 ML (OCEAN) ONE (22:49)
[2021-06-16] MEDS ORDERED: oxyCODONE HCL IR 5 MG TAB (IMMEDIATE RELEASE) PO STA (02:22)
[2021-06-16] MEDS ORDERED: PSEUDOEPHEDRINE HCL 30 MG TAB PO STA (02:22)
[2021-06-16] MEDS ORDERED: fentaNYL 25 MCG/HR TDSY TD SCH (03:00)
[2021-06-16] MEDS: LACTATED RINGER'S 1,000 ML IV SCH (05:17)
--- NOTE | 2021-06-16 06:55 | Hospitalist Progress Note ---
Date of Service June 16, 2021 Assessment & Plan (1) Sedated: Plan: 20 yo female with a pmhx including sickle cell disease, sickle cell crisis, anemia, COVID-19 infection 01/31/2021, avascular necrosis of hip, hyperbilirubinemia, psychogenic nonepileptic seizure, borderline personality disorder, GERD, vitamin D deficiency, opioid-induced hyperalgesia for seizure like activity. #Sedated, improving #seizure like activity #Psychogenic nonepileptic seizure -presented in an unresponsive state 2/2 benzo administration via EMS suspected seizure; however, patient has chronic history of psychogenic nonepileptic seizure -Patient had been placed on fentanyl patch and has been on oxycodone as needed breakthrough pain, which will be withheld for now; not currently in pain -Urine drug screen is pending, thus far positive for benzos and marijuana -psych following, previous [address] earlier this week for apparent suicidal ideation, patient was unaware -plan to stay overnight and reevaluate tomorrow #Sickle cell anemia -No evidence of sickle cell crisis pulse ox is 99 on room air, hemoglobin is 9.1 -cont. folic acid, hydroxyurea -cbc am #Hyperbilirubinemia -1.8 on admission labs with usual range 2.0-4.0 -cmp am #GERD -cont. pantoprazole Chronic conditions: depression- cont. duloxetine borderline personality disorder chronic pain Opioid-induced hyperalgesia DVT ppx: SCDs FEN/GI: LRs Code Status: full Dispo: med/surg Admission and Anticipated Discharge Date Admission Date: June 15, 2021 Subjective Seen at bedside this afternoon. Sleepy but doing well. Not in pain. Review of Systems Review of Systems: All systems reviewed & are unremarkable except as noted in Subjective Physical Exam Physical Exam: Constitutional: lying in bed, in no acute distress. HEENT: PERRL, EOMI, mucous membranes and oropharynx dry. Neck: supple. No JVD. Heart: normal S1 and S2. No murmurs, rubs or gallops. Lungs: CTA, no respiratory distress, no accessory muscle use. Abdomen: normal bowel sounds and soft. Nontender. Nondistended. Extremities: no cyanosis or clubbing. No edema. moves extremities. Neurologic: cranial nerves II through XII grossly intact. Psychiatric: mood appropriate, mildly sedated Results & Data Results & Data ([facility]) Vital Signs (Past 12 Hours) Vital Signs Temp Pulse Pulse Resp BP Pulse Ox 06/15/21 22:57 36.9 C 67 20 126/81 99 06/15/21 22:19 50 L
[2021-06-16] MEDS: HYDROXYUREA 500 MG CAP PO SCH (07:25)
[2021-06-16] MEDS ORDERED: CHECK fentaNYL PATCH PLACEMENT SCH ×2 (08:00→16:00)
[2021-06-16] MEDS ORDERED: PANTOprazole 40 MG TAB PO SCH (09:00)
[2021-06-16] MEDS ORDERED: FOLIC ACID 1 MG TAB PO SCH (09:00)
[2021-06-16] MEDS ORDERED: DULoxetine HCL 20 MG CAP PO SCH (09:00)
[2021-06-16 10:12] LABS: Hematocrit (blood only) 24.8 % (37-47); Hemoglobin 8.6 g/dL (12.0-16.0); Mean Corpuscular Hemoglobin 36.4 pg (25-34); Mean Corpuscular Hgb Conc 34.7 g/dL (32-36); Mean Corpuscular Volume 105.1 fL (80-100); Mean Platelet Volume 9.4 fL (7.4-10.4); Platelet Count 295 K/uL (130-400); RDW Coefficient of Variation 20.4 % (11.5-14.5); RDW Standard Deviation 77.8 fL (36.4-46.3); Red Blood Count 2.36 M/uL (4.2-5.4)
[2021-06-16 10:31] LABS: Anisocytosis Present; Basophils # (auto) 0.03 K/uL (0-0.2); Basophils % (auto) 0.6 %; Eosinophils # (auto) 0.19 K/uL (0-0.5); Eosinophils % (auto) 3.6 %; Lymphocytes # (auto) 3.14 K/uL (1.2-3.4); Lymphocytes % (auto) 59.2 %; Monocytes # (auto) 0.26 K/uL (0.11-0.59); Monocytes % (auto) 4.9 %; Neutrophils # (auto) 1.68 K/uL (1.4-6.5); Neutrophils % (auto) 31.7 %; Pappenheimer Bodies 1+; Sickle Cells 1+; Target Cells 1+
[2021-06-16 10:44] LABS: Alanine Aminotransferase 10 U/L (7-52); Albumin Globulin Ratio 1.3 (0.9-2); Albumin Level 3.7 gm/dl (3.4-5.0); Alkaline Phosphatase 50 U/L (34-104); Anion Gap 5 (3-11); Aspartate Aminotransferase 20 U/L (13-39); Bilirubin,Total 1.4 mg/dl (0.2-1.0); Blood Urea Nitrogen 3 mg/dl (6-23); Carbon Dioxide 26 mmol/L (21-32); Chloride 108 mmol/L (98-107); Creatinine Clr Calc Pharmacy 165.2 ml/min; Est GFR (African American) > 150.0 ml/min; Est GFR (Non-African American) 137.4 ml/min; Globulin 2.8 gm/dl (2.5-4.0); Glucose 86 mg/dl (70-99(Fasting)); Magnesium 1.4 mg/dl (1.7-2.4); Potassium 3.5 mmol/L (3.5-5.1); Sodium 139 mmol/L (136-145); Total Protein 6.5 gm/dl (6.0-8.3)
[2021-06-16] MEDS: oxyCODONE HCL IR 5 MG TAB (IMMEDIATE RELEASE) PO PRN (11:03)
--- NOTE | 2021-06-16 12:11 | Psychiatric Consultation ---
Date of Consultation June 16, 2021 Impression / Recommendations Impression 20 yo woman with history of sickle cell anemia, BPD, chronic pain, MDD, anxiety, trauma and functional neurological disorderadmitted medically after concern for seizure and then found on arrival to have 302 warrant issued the prior week. Diagnostically consistent with likely symptom presentation of functional neurological disorder. Acute risk of harm to self is low given denial of active SI, no recent changes in chronic SI, able to discuss her supports and safety plan, engaging in outpatient therapy, future-oriented and can speak to various reasons for living. Chronic risk is high given chronic intermittent SI, BPD, chronic pain, chronic medical condition, trauma, hx prior psych hospitalization and hx prior suicide attempts. At this time her acute risk is not elevated above her chronically elevated baseline and she presents as psychiatrically stable. She does not desire inpatient psychiatric treatment nor is it felt this necessary at this time nor does she meet 302 criteria. I have dispositioned her 302 warrant as she no longer presents with symptoms outlined in the warrant and reports improvement in mood with no current active SI. (1) Seizure-like activity: (2) Borderline personality disorder: (3) Opioid-induced hyperalgesia: (4) Sickle cell anemia: Sickle-cell associated disorders: with unspecified crisis Qualified Code(s): D57.00 - Hb-SS disease with crisis, unspecified -Safe for discharge from psychiatric standpoint -Does not require 1:1 as no longer on 302 warrant -My note will be sent to her outpatient psychiatric/therapy providers on discharge as she signed ROIs Risk Factors Assessment Do You Have Access To A Gun?: No Health Problems: Yes Mental Health Diagnoses: Yes Substance Use Disorders: No Previous Attempt: Yes Previous Psychiatric Hospitalization: Yes Hopelessness: No Protective Factors Assessment Employed: Yes Stable Relationships: Yes Supportive Family: Yes Psych History Identifying Data 20 yo woman with history of sickle cell anemia, BPD, chronic pain, MDD, anxiety, trauma and functional neurological disorderadmitted medically after concern for seizure. Psychiatry was consulted as patient was found to have active 302 warrant from earlier in the week on presentation to the ED. Chief Complaint "I'm fine, I wish I could leave". History of Present Illness James presented to the ED after her roommate witnessed an episode concerning for possible seizure and apparently may have a subsequent seizure-like episode on route with EMS requiring benzo administration. On arrival it was determined that her outpatient therapist, Alena, had completed a 302 warrant on 06/07/21 due to concern for James's worsening mood and stating during a therapy session that day that she had no reasons to live. Today she presents with euthymic mood and affect though is disappointed to have missed a concert on campus last night. She acknowledges her chronic SI but denies any change in frequency or intensity recently, denies current SI and denies any current nor recent intent nor plan nor rehearsal behaviors. She speaks to reasons for living including her interest in clothes and fashion and likes positing pictures on social media. She also notes that a reason for living is that she is almost close to graduating and just needs to complete one more summer class. She notes that if SI worsens she utilizes her safety plan and reaches out to her sister or her therapist. She was unaware of the 302 warrant until she presented to the ED and notes she spoke with her therapist as recently as Friday on 06/11/21 after the warrant was granted. She agrees to sign releases for her therapist and for new psychiatrist she has intake scheduled with at [facility]. She discusses things she has been enjoying including books and smiles and laughs as discussing this and engages with me about recent series she read and gives book recommendations of recent books she finished and enjoyed. Continues to enjoy spending time with friends. Feels her pain is fairly well controlled though she has been having some medication side effects. She denies any benzo use. Past Psychiatric History Do You Have Access To A Gun?: No Allergies Allergy/AdvReac Type Severity Reaction Status Date / Time No Known Allergies Allergy Verified 05/08/21 15:02 Home Medications Medication Instructions Recorded Confirmed Type naloxone 4 mg/actuation nasal 1 spray INTRANASAL .Q3 MINUTES PRN 09/04/20 05/08/21 History spray (Narcan) duloxetine 20 mg capsule,delayed 20 mg PO DAILY 01/31/21 05/08/21 History release folic acid 1 mg tablet 2 mg PO DAILY 01/31/21 05/08/21 History hydroxyurea 500 mg capsule 1,000 mg PO BID 01/31/21 05/08/21 History pantoprazole 40 mg tablet,delayed 40 mg PO DAILY 01/31/21 05/08/21 History release oxycodone 10 mg tablet 10 mg PO Q6H PRN #45 tab 06/01/21 Rx ergocalciferol (vitamin D2) 1,250 50,000 unit PO WK 06/15/21 History mcg (50,000 unit) capsule fentanyl 12 mcg/hr transdermal 12 mcg TRANSDERMAL Q3D #0 ea 06/16/21 Rx patch Personal History Living Arrangements: Apartment Born In: [place] Employment Status: Student Beliefs That Will Affect Care: None Patient History Medical History Acute leg pain Borderline personality disorder Chest pain Chronic pain Depression with suicidal ideation Murmur, cardiac Nausea Overdose Overdose Person under investigation for COVID-19 Pneumonia Pseudoseizures Seizure-like activity Sickle cell anemia Sickle cell crisis Suicidal ideation Suicide gesture Surgical History No pertinent past surgical history Family History Mother Hypertension Father Ulcer Other Family history non-contributory Social History Smoking Status: Never smoker Tobacco Type: Cigarettes Second Hand Exposure: Yes; Hx Alcohol Use: Yes Alcohol type: other Hx Substance Use: No Preferred Language: Turkmen Communication Ability: Effective Portfolio Assistant Required: No Beliefs That Will Affect Care: None marital status: Single Current Living Situation: Alone Current Living Situation Comment: Pt states she lives with roommates 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 current occupation: [employer] major Feels Safe at Home: Yes Assistive Devices: None Physical Exam Psychiatric: Orientation: alert and oriented x 3 Apperance: appropriately dressed and appropriately groomed Eye Contact: good eye contact Motor Behavior: steady gait and station and no abnormal motor movements Speech: normal rate/rhythm/volume of speech Affect: euthymic affect Mood: no depressed mood and no anxious mood Thought Process: goal directed thought process Thought Content: reality based without delusions Suicidal Thoughts: denies suicidal thoughts Homicidal Thoughts: denies homicidal thoughts Hallucinations: no auditory hallucinations and no visual hallucinations Cognition: recent memory grossly intact, remote memory grossly intact, attention grossly intact and language grossly intact Estimated Intelligence: consistent with education level Insight: + fair insight Judgement: + fair judgement Vital Signs (Past 24 Hours): Last Vital Signs Temp 36.9 C 06/16/21 11:57 Pulse 72 06/16/21 11:57 Resp 18 06/16/21 11:57 BP 113/71 06/16/21 11:57 Pulse Ox 99 06/16/21 11:57 Review of Systems All systems reviewed & are unremarkable except as noted in HPI & below Results & Data ([facility]) Medications Administered Duloxetine HCl (Duloxetine Hcl 20 Mg Cap) 20 mg PO QAM [facility] Stop: 07/16/21 08:59 Last Admin: 06/16/21 07:26 Dose: 20 mg Documented by: [id number] Fentanyl (Fentanyl 25 Mcg/Hr Tdsy) 25 mcg TD Q3D@0300 [facility] Stop: 06/30/21 02:59 Last Admin: 06/16/21 02:46 Dose: 25 mcg Documented by: [id number] Folic Acid (Folic Acid 1 Mg Tab) 2 mg PO QAM [facility] Stop: 07/16/21 08:59 Last Admin: 06/16/21 07:26 Dose: 2 mg Documented by: [id number] Hydroxyurea (Hydroxyurea 500 Mg Cap) 1,000 mg PO BID [facility] Stop: 07/15/21 20:59 Last Admin: 06/16/21 07:25 Dose: 1,000 mg Documented by: [id number] Cosigned by: [id number] Admin: 06/15/21 21:13 Dose: 1,000 mg Documented by: [id number] Cosigned by: [id number] Lactated Ringer's (Lr) 1,000 mls @ 125 mls/hr IV .Q8H [facility] Stop: 07/15/21 13:59 Last Admin: 06/16/21 05:17 Dose: 125 mls/hr Documented by: [id number] Infusion: 06/16/21 05:17 Dose: 0 mls/hr Documented by: [id number] Admin: 06/15/21 21:17 Dose: 125 mls/hr Documented by: [id number] Infusion: 06/15/21 20:42 Dose: 0 mls/hr Documented by: [id number] Admin: 06/15/21 13:26 Dose: 125 mls/hr Documented by: [id number] Miscellaneous (Fentanyl Patch Remove & Waste) 1 ea N/A Q3D@0259 [facility] Stop: 07/16/21 02:58 Last Admin: 06/16/21 02:48 Dose: 1 ea Documented by: [id number] Cosigned by: [id number] Miscellaneous (Check Fentanyl Patch Placement) 1 ea N/A QS [facility] Stop: 07/16/21 07:59 Last Admin: 06/16/21 07:25 Dose: 1 ea Documented by: [id number] Oxycodone HCl (Oxycodone Hcl Ir 5 Mg Tab (Immediate Release)) 10 mg PO Q6H PRN PRN Reason: Pain Stop: 06/29/21 21:39 Last Admin: 06/16/21 11:03 Dose: 10 mg Documented by: [id number] Admin: 06/15/21 21:53 Dose: 10 mg Documented by: [id number] Pantoprazole Sodium (Pantoprazole 40 Mg Tab) 40 mg PO QAM [facility] Stop: 07/16/21 08:59 Last Admin: 06/16/21 07:25 Dose: 40 mg Documented by: [id number] Coding Level of Care Code 84560 Inpt Consult Level 3 Diagnoses Seizure-like activity R56.9 Borderline personality disorder F60.3 Opioid-induced hyperalgesia R20.8; T40.2X5A Sickle cell anemia D57.00 Sickle-cell associated disorders: with unspecified crisis
[2021-06-16] MEDS: MAGNESIUM SULFATE / D5W 1 GM/100 ML BAG IV SCH ×2 (13:45→15:23)
[2021-06-16] MEDS ORDERED: fentaNYL 12 MCG/HR TDSY TD SCH (14:30)
--- NOTE | 2021-06-16 14:46 | Discharge Summary ---
Date of Service June 16, 2021 Admission HPI Per Admitting Provider Patient is a 20-year-old female with a past medical history including sickle cell disease, sickle cell crisis, anemia, COVID-19 infection 01/31/2021, avascular necrosis of hip, hyperbilirubinemia, psychogenic nonepileptic seizure, borderline personality disorder, GERD, vitamin D deficiency, opioid-induced hyperalgesia. Patient was recently admitted to [facility] from 05/08- 06/01/2021. In emergency department, patient is sedated for my examination, and cannot contribute to HPI or review of systems. Information is gleaned from emergency department reports and previous records. The patient was reportedly seen in the outpatient setting, and had a 302 performed a few days ago, however, the patient reportedly was unable to be found, and it was not exercise at that time. The 302 paperwork will be placed on the chart Principal Diagnosis Psychogenic nonepileptic seizure Discharge Exam Constitutional: lying in bed, in no acute distress. HEENT: PERRL, EOMI, moist mucous membranes Neck: supple. No JVD. Heart: normal S1 and S2. No murmurs, rubs or gallops. Lungs: CTA, no respiratory distress, no accessory muscle use. Abdomen: normal bowel sounds and soft. Nontender. Nondistended. Extremities: no cyanosis or clubbing. No edema. moves extremities. Neurologic: cranial nerves II through XII grossly intact. Psychiatric: mood appropriate Discharge Data Allergies Allergy/AdvReac Type Severity Reaction Status Date / Time No Known Allergies Allergy Verified 05/08/21 15:02 Consultations 06/15/21 05:28 ED Decision to Admit Stat 06/15/21 06:41 Consult Psychiatry Routine Ordered Studies Laboratory Results WBC 5.30 K/uL (4.8-10.8) 06/16/21 09:57 RBC 2.36 M/uL (4.2-5.4) L 06/16/21 09:57 Hgb 8.6 g/dL (12.0-16.0) L 06/16/21 09:57 Hct 24.8 % (37-47) L 06/16/21 09:57 MCV 105.1 fL (80-100) H 06/16/21 09:57 MCH 36.4 pg (25-34) H 06/16/21 09:57 MCHC 34.7 g/dL (32-36) 06/16/21 09:57 RDW Std Deviation 77.8 fL (36.4-46.3) H 06/16/21 09:57 RDW Coeff of Nando 20.4 % (11.5-14.5) H 06/16/21 09:57 Plt Count 295 K/uL (130-400) 06/16/21 09:57 MPV 9.4 fL (7.4-10.4) 06/16/21 09:57 Immature Gran % (Auto) 0.0 % 06/16/21 09:57 Neut % (Auto) 31.7 % 06/16/21 09:57 Lymph % (Auto) 59.2 % 06/16/21 09:57 Bollinger % (Auto) 4.9 % 06/16/21 09:57 Eos % (Auto) 3.6 % 06/16/21 09:57 Baso % (Auto) 0.6 % 06/16/21 09:57 Reticulocyte % (Auto) 7.0 % (0.5-2.0) H 06/15/21 04:07 Neut # (Auto) 1.68 K/uL (1.4-6.5) 06/16/21 09:57 Lymph # (Auto) 3.14 K/uL (1.2-3.4) 06/16/21 09:57 Bollinger # (Auto) 0.26 K/uL (0.11-0.59) 06/16/21 09:57 Eos # (Auto) 0.19 K/uL (0-0.5) 06/16/21 09:57 Baso # (Auto) 0.03 K/uL (0-0.2) 06/16/21 09:57 Reticulocyte # 0.17 10^6/uL (0.02-0.10) H 06/15/21 04:07 Immature Gran # (Auto) 0.00 K/uL (0.00-0.02) 06/16/21 09:57 Absolute Nucleated RBC 0.05 K/uL (0-0) H 06/15/21 04:07 Nucleated RBC % (auto) 0.8 % 06/15/21 04:07 Polychromasia 1+ 06/15/21 04:07 Anisocytosis Present 06/16/21 09:57 Pappenheimer Bodies 1+ 06/16/21 09:57 Sickle Cells 1+ 06/16/21 09:57 Target Cells 1+ 06/16/21 09:57 PT 11.5 Seconds (9.0-12.0) 06/15/21 04:07 INR 1.1 (0.9-1.1) 06/15/21 04:07 APTT 22.2 Seconds (21.0-31.0) 06/15/21 04:07 PTT Ratio 0.8 06/15/21 04:07 VBG pH 7.40 (7.36-7.41) 06/15/21 04:07 VBG pCO2 45 mmHg (38-50) 06/15/21 04:07 VBG pO2 46 mmHg 06/15/21 04:07 VBG HCO3 27 mmol/L 06/15/21 04:07 VBG O2 Saturation 78.5 % 06/15/21 04:07 VBG Base Excess 1.9 mEq/L 06/15/21 04:07 Carboxyhemoglobin 0.8 % THgb 06/15/21 04:07 Barometric Pressure 736.5 mm/Hg 06/15/21 04:07 Sodium 139 mmol/L (136-145) 06/16/21 09:57 Potassium 3.5 mmol/L (3.5-5.1) 06/16/21 09:57 Chloride 108 mmol/L (98-107) H 06/16/21 09:57 Carbon Dioxide 26 mmol/L (21-32) 06/16/21 09:57 Anion Gap 5 (3-11) 06/16/21 09:57 BUN 3 mg/dl (6-23) L 06/16/21 09:57 Creatinine 0.50 mg/dl (0.6-1.2) L 06/16/21 09:57 Est Cr Clr Drug Dosing 165.2 ml/min 06/16/21 09:57 Est GFR ( Amer) > 150.0 ml/min 06/16/21 09:57 Est GFR (Non-Af Amer) 137.4 ml/min 06/16/21 09:57 BUN/Creatinine Ratio 6.0 (10-20) L 06/16/21 09:57 Glucose 86 mg/dl (70-99(Fasting)) 06/16/21 09:57 Osmolality 291 mOsm/kg (280-300) 06/15/21 04:07 Calcium 9.0 mg/dl (8.5-10.1) 06/16/21 09:57 Magnesium 1.4 mg/dl (1.7-2.4) L 06/16/21 09:57 Total Bilirubin 1.4 mg/dl (0.2-1.0) H 06/16/21 09:57 AST 20 U/L (13-39) 06/16/21 09:57 ALT 10 U/L (7-52) 06/16/21 09:57 Alkaline Phosphatase 50 U/L (34-104) 06/16/21 09:57 Ammonia 38.0 umol/L (18-72) 06/15/21 06:31 Total Creatine Kinase 58 U/L (26-192) 06/15/21 04:07 Troponin I High Sens 5.8 pg/ml (0-14) 06/15/21 04:07 Total Protein 6.5 gm/dl (6.0-8.3) 06/16/21 09:57 Albumin 3.7 gm/dl (3.4-5.0) 06/16/21 09:57 Globulin 2.8 gm/dl (2.5-4.0) 06/16/21 09:57 Albumin/Globulin Ratio 1.3 (0.9-2) 06/16/21 09:57 Lipase 32 U/L (11-82) 06/15/21 04:07 TSH 0.438 uIu/ml (0.300-4.500) 06/15/21 04:07 HCG, Qual Negative (Negative) 06/15/21 04:07 Urine Color [place] 06/15/21 04:41 Urine Appearance Clear (Clear) 06/15/21 04:41 Urine pH 7.0 (4.5-7.5) 06/15/21 04:41 Ur Specific [place] 1.010 (1.000-1.030) 06/15/21 04:41 Urine Protein Negative (Negative) 06/15/21 04:41 Urine Glucose (UA) Negative (Negative) 06/15/21 04:41 Urine Ketones Negative (Negative) 06/15/21 04:41 Urine Blood Negative (Negative) 06/15/21 04:41 Urine Nitrite Negative (Negative) 06/15/21 04:41 Urine Bilirubin Negative (Negative) 06/15/21 04:41 Urine Urobilinogen Negative (Negative) 06/15/21 04:41 Ur Leukocyte Esterase Negative (Negative) 06/15/21 04:41 Salicylates < 3.0 mg/dl (3.0-30) L 06/15/21 04:07 Urine Opiates Screen Neg (Neg) 06/15/21 04:41 Ur Methadone, Qual Neg (Neg) 06/15/21 04:41 Acetaminophen < 3 ug/ml (10-30) L 06/15/21 04:07 Urine Barbiturates Neg (Neg) 06/15/21 04:41 Ur Phencyclidine (PCP) Neg (Neg) 06/15/21 04:41 U Amphetamin/Meth Scrn Neg (Neg) 06/15/21 04:41 MDMA (Ecstasy) Screen Neg (Neg) 06/15/21 04:41 U Benzodiazepines Scrn Pos (Neg) H 06/15/21 04:41 Ur Cocaine Metabolite Neg (Neg) 06/15/21 04:41 U Marijuana (THC) Screen Pos (Neg) H 06/15/21 04:41 Ethyl Alcohol mg/dL < 10.0 mg/dl (<10.0) 06/15/21 04:07 Impressions Chest X-Ray 06/15/21 03:08 XR chest 1V portable HISTORY: Altered mental status, seizure/overdose COMPARISON: Chest 05/08/2021. FINDINGS: The lungs are clear. Cardiac silhouette is borderline enlarged. No pleural effusions. No pneumothorax. There are low lung volumes. IMPRESSION: Borderline cardiomegaly. This may be due to the low lung volumes. ACT 112: Negative or not required by law. Electronically signed by: Cortes Fletcher M.D. 06/15/2021 8:[address] 06/15/21 03:08 CT OF THE HEAD WITHOUT CONTRAST CLINICAL HISTORY: AMS, probable overdose vs seizure COMPARISON STUDY: Head CT November 13, 2020. CT DOSE: 614.27 mGy.cm TECHNIQUE: Helical axial images of the head were obtained without IV contrast. Automated exposure control was utilized for the study. A dose lowering technique was utilized adhering to the principles of ALARA. FINDINGS: No acute intracranial hemorrhage, midline shift or mass effect is present. The ventricular system is unremarkable. The basal cisterns are patent. No extra-axial collections are present. There are no findings to suggest acute dural sinus thrombosis or acute territorial infarct. No significant calvarial abnormalities are present. Note is made of ethmoid and bilateral maxillary sinus mucosal thickening. IMPRESSION: No acute intracranial findings. ACT 112: Negative or not required by law. Electronically signed by: Carl Jay M.D. 06/15/2021 6:29 AM Hospital Course (1) Sedated: 20 yo female with a pmhx including sickle cell disease, sickle cell crisis, anemia, COVID-19 infection 01/31/2021, avascular necrosis of hip, hyperbilirubinemia, psychogenic nonepileptic seizure, borderline personality disorder, GERD, vitamin D deficiency, opioid-induced hyperalgesia for seizure like activity. #Sedated, improving #seizure like activity #Psychogenic nonepileptic seizure -presented in an unresponsive state 2/2 benzo administration via EMS suspected seizure; however, patient has chronic history of psychogenic nonepileptic seizure -Patient had been placed on fentanyl patch and has been on oxycodone as needed breakthrough pain -Urine drug screen thus far positive for benzos and marijuana -CT head negative -psych following, previous [address] earlier this week for apparent suicidal ideation; 302 revoked as low concern of self harm -Will discharge patient on a 12mcg fentanyl patch as well as her home dose oxycodone for break through pain. She has already been prescribed this dose fentanyl patch from her PCP but has not been able to get it yet due to availability. 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 #Sickle cell anemia -No evidence of sickle cell crisis on admission; pulse ox is 99 on room air, hgb 9.1 -cont. folic acid, hydroxyurea #Hyperbilirubinemia -1.8 on admission labs with usual range 2.0-4.0 -improved to 1.4 on discharge #GERD -cont. pantoprazole Chronic conditions: depression- cont. duloxetine borderline personality disorder chronic pain Opioid-induced hyperalgesia Total Time Total Time Spent Total Time Spent (In Minutes): <30 Discharge Plan Discharge Items Patient Disposition: Home - Self-Care Reason For Visit: SEIZURE LIKE ACTIVITY Discharge Diagnosis: Psychogenic nonepileptic seizure Activity: Resume your previous activity Non-emergency contact: Primary Care Provider Call non-emergency contact if: you have any medication questions, your symptoms worsen and your pain is not controlled Follow-up/Referrals: [facility] [Primary Care Provider] - Zamzam Bailey MD [Resident] - Diet: Regular Addtl Attending Provider Instructions: You were admitted to the hospital for seizure-like activity. Upon transport to the hospital you were given multiple doses of benzodiazepines which is why you were extra sleepy most of yesterday. There was also a [address] from earlier this week after your visit with your psychologist. With further evaluation here from our psychiatrist, to [address]. It also seems that you are struggling to find a balance between pain control and dizziness due to your current pain regimen. To manage this we will decrease her fentanyl patch to 12mcg. 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 Continue your home dose oxycodone for breakthrough pain as needed. Pending Studies at Discharge: No Stand-Alone Forms: My [facility] Watch-Sites, Smoking Cessation Medications and DC Order Prescriptions: New fentanyl 12 mcg/hr Patch 72 Hour 12 mcg transdermal Q3D Qty: 0 RF: 0 Continued naloxone [Narcan] 4 mg/actuation spray,non-aerosol 1 spray intranasal .Q3 MINUTES PRN (Reason: OVERSEDATION) RF: 0 oxycodone 10 mg tablet 10 mg PO Q6H PRN (Reason: pain) Qty: 45 RF: 0 duloxetine 20 mg capsule,delayed release(DR/EC) 20 mg PO DAILY RF: 0 hydroxyurea 500 mg capsule 1,000 mg PO BID RF: 0 pantoprazole 40 mg tablet,delayed release (DR/EC) 40 mg PO DAILY RF: 0 folic acid 1 mg Tablet 2 mg PO DAILY RF: 0 ergocalciferol (vitamin D2) 1,250 mcg (50,000 unit) capsule 50,000 unit PO WK RF: 0 Discontinued fentanyl 25 mcg/hr patch 72 hour 1 patch transdermal Q72H Qty: 5 RF: 0 Discharge Orders: Discharge Order (Routine); Ordered 06/16/21 Ordered By: Neymar Bailey Admission Data Admit Date/Time: 06/15/21 05:36 Attending Provider: Cesar Kerr Admit Provider: Chandler Mena Primary Care Provider: [facility] Other Providers: Chandler Mena ; Norma Squires ; Ailyn Mcgill ; Isabelle Gomez Other Interventions: Discharge Summary Assessment (RN) Last Done: 06/16/21 15:41 Supervising Physician Co-Signing Physician Notes I personally examined the patient and verified all amaro points of history and exam, discussed case, and agree with decision making with Dr Bailey Feeling okay. Would very much like to leave the hospital. Discussed with psychiatryinput greatly appreciated. Vitals noted, in general she is awake and alert pleasant no distress. HEENT normocephalic atraumatic mucous membranes moist. Breathing unlabored no accessory muscle use good effort. Skin shows no rashes no pallor or icterus. Neuro without focal deficits. Dizzinessseems to largely be narcotic mediated side effect. Last hospitalization she had been stable with minimal dizziness on the dosing of medicines that she went home on, but I think unfortunately once she had to participate in real-life activities, the heavier exertion, and the more time upright, etc. likely lead to unmasking dizziness as a side effect which has been intolerable. I suspect feeling unpleasant from the dizziness, as well as probably a little bit of abrupt withdrawal from the Narcan were what precipitated her psychogenic nonepileptic seizure that led to the admission. Discussing with the patient, both the dizziness and the pain are very unpleasant, but she definitely seems to have less tolerance for the dizziness, and her PCPs plan to see how she does on a slightly reduced dose of the same overall med regimen seems extremely reasonable. Prescription had already been sent for the lower dose fentanyl patches, it was just that her pharmacy did not have the main yetwe switched her to a 12 mcg patch prior to discharge, which gives about 3 days for her pharmacy to get it in, which is highly likely. 302 warrantpatient has only expressed chronic suicidal ideation to me, no active plan no attempts, and really seems to be at a fairly good state for the ups and downs that she faces with her chronic illness. In my assessment I did not believe involuntary commitment to be warranted. Psychiatry has seen her and agreesinput greatly appreciated. Stable for home Resident Activity Tracking Resident Involvement: Resident Care Provided Care Provided: Adult Hospital Medicine
--- NOTE | 2021-06-16 18:44 | Billing Data ---
Date of Service June 16, 2021 Coding Level of Care Code D/C DAY MANAGEMENT <30 MINS
[2021-06-17 14:16] LABS: 7-Aminoclonaz, Confirm NEGATIVE ng/mL (<25); Hydro-Alp Ur, GC/MS NEGATIVE ng/mL (<25); Hydroxyethylflurazepam, Conf NEGATIVE ng/mL (<50); Hydroxymidazolam Ur, GC/MS >2000 ng/mL (<50); Hydroxytriazolam NEGATIVE ng/mL (<50); Lorazepam, Ur GC/MS NEGATIVE ng/mL (<50); Marijuana Quant, GCMS Urine 1409 ng/mL (<5); Nordiazepam, Confirm NEGATIVE ng/mL (<50); Oxazepam Ur, GC/MS NEGATIVE ng/mL (<50); Temazepam, Confirm NEGATIVE ng/mL (<50)
[2021-06-19] MEDS ORDERED: fentaNYL 12 MCG/HR TDSY TD SCH (15:00)
== END 2021-06-16 16:37 | disposition home or self-care (01) | DRG 880 ==
LOC: ED 02:50 → SUATTDRO 05:36 → EDINP 05:36 → 2W 10:07

== ENCOUNTER 2021-08-13 16:16 | Inpatient (IN) ==
[2021-08-13] MEDS ORDERED: SODIUM CHLORIDE 0.9% 1000ML 1,000 ML IV ONE (19:09)
[2021-08-13] MEDS ORDERED: ONDANSETRON INJ 2 MG/ML 2 ML VIAL IV STA (19:15)
[2021-08-13] MEDS ORDERED: MoRPHine SULFATE 10 MG/ML CARP/VIAL IV STA (19:15)
--- NOTE | 2021-08-13 19:19 | Emergency Department Note ---
Impression & Plan Sickle cell crisis, Anemia, Acute dehydration ED Provider Note NAME: ADÁN PEOPLES AGE: 21 SEX: F : 2000 ARRIVES VIA: Walk-In INFORMANT: [Patient] ED PROVIDER(S): [Richard Joiner MD] CHIEF COMPLAINT: Dizziness, pain HISTORY OF PRESENT ILLNESS: The patient is a 21-year-old female with sickle cell disease. She does occasionally require hospitalization and blood transfusion. She states that for the last 2, maybe 3 days, she has had all over body pain that is severe. The pain feels like her typical painful crisis. She has been dizzy and nauseated. No fever, she has been mildly short of breath but there has been no cough. No urinary complaints, no diarrhea. The patient spoke with her doctors office, she was referred here for evaluation. REVIEW OF SYSTEMS: See HPI for pertinent positives and negatives. A total of ten systems were reviewed and were otherwise negative. PMHx/PSHx: See Below SOCIAL HISTORY: See Below. PHYSICAL EXAM: GENERAL: Patient is in no acute distress. HEENT: No acute trauma, normocephalic atraumatic, mucous membranes moist, no nasal congestion, no scleral icterus. NECK: No stridor, no adenopathy, no meningismus, trachea is midline. LUNGS: Clear to auscultation bilaterally, no wheeze, no rhonchi, breath sounds equal. HEART: 3/6 systolic murmur, mildly tachycardic, regular rhythm. ABDOMEN: Soft, nontender, bowel sounds positive, no peritonitis. EXTREMITIES: No cyanosis or edema, full range of motion of all the joints without pain or difficulty, no signs for acute trauma. NEUROLOGIC: Oriented x 3, no acute motor or sensory deficits, no focal weakness. SKIN: No rash, no jaundice, no diaphoresis. DIFFERENTIAL DIAGNOSIS: Sickle cell crisis, dehydration, electrolyte imbalance, pneumonia, UTI, anemia, renal or liver failure, among others. EMERGENCY DEPARTMENT COURSE/PROCEDURES: ECG: Indication was chest pain and dizziness. The ECG shows a normal sinus rhythm with a rate of 79. There are inverted T waves in the anterior leads. There is no ST elevation. There are no PVCs. QTC is 438. Compared to an ECG from 07 June 2021, there is now a T wave inversion in lead III which was not present before. Continuous Cardiac Monitoring: An order was placed for continuous cardiac monitoring. The monitor shows a rate of 95 with normal sinus rhythm. MEDICAL DECISION MAKING: There is no leukocytosis. The patient is anemic but, her numbers today are typical of her recent testing. Platelet count was slightly elevated. Reticulocyte count was adequate. No renal failure or significant electrolyte abnormality. Bilirubin was elevated at 4, this is higher than her typical v alues. No other liver enzyme elevation noted. Patient appeared to be in a euthyroid state. COVID test returned negative. ECG shows a normal sinus rhythm, no ST elevation. Cardiac enzyme testing x1 is not consistent with acute cardiac injury. Chest x-ray does not show pneumonia or CHF. On exam, patient was not febrile or toxic. She appeared in pain. The patient was given IV saline, 1.5 L. She received IV Zofran, IV morphine and was written for IV Dilaudid for additional pain control. Patient does feel better but not at baseline. Typically, she requires a 24-hour hospital stay to clear her sickle cell crisis. I spoke with the patient and case management, the on-call hospitalist was consulted. Past Med/Surg History Medical History Acute leg pain Borderline personality disorder Chest pain Chronic pain Depression with suicidal ideation Murmur, cardiac Nausea Overdose Overdose Person under investigation for COVID-19 Pneumonia Pseudoseizures Seizure-like activity Sickle cell anemia Sickle cell crisis Suicidal ideation Suicide gesture Surgical History No pertinent past surgical history Family History Mother Hypertension Father Ulcer Other Family history non-contributory Social History Smoking Status: Never smoker Tobacco Type: Cigarettes Second Hand Exposure: Yes; Hx Alcohol Use: Yes Alcohol type: other Hx Substance Use: No Preferred Language: Lao Communication Ability: Effective Deep Sea Diver Required: No Beliefs That Will Affect Care: None marital status: Single Current Living Situation: Alone Current Living Situation Comment: Pt states she lives with roommates 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 current occupation: [employer] major Feels Safe at Home: Yes Assistive Devices: None Allergies Allergies Allergy/AdvReac Type Severity Reaction Status Date / Time ekg electrodes Allergy Intermediate Blister Uncoded 08/13/21 22:04 Home Meds Home Medications Medication Instructions Recorded Confirmed folic acid 1 mg tablet 2 mg PO DAILY 01/31/21 08/13/21 hydroxyurea 500 mg capsule 1,000 mg PO BID 01/31/21 08/13/21 cholecalciferol (vitamin D3) 25 25 mcg PO DAILY 08/13/21 08/13/21 mcg (1,000 unit) tablet (Vitamin D3) polyethylene glycol 3350 17 17 g PO DAILY PRN 08/13/21 08/13/21 gram/dose oral powder Previous Rx's Medication Instructions Recorded fentanyl 12 mcg/hr transdermal 12 mcg TRANSDERMAL Q3D #0 ea 06/16/21 patch Results & Data (ED) Vital Signs Vital Signs - 24 hr 08/13/21 16:41 08/13/21 19:17 08/13/21 20:17 Temperature 36.5 C Temperature Source Temporal Artery Scan Pulse Rate 95 H Pulse Rate [Apical] 68 Pulse Rhythm [Apical] Regular Pulse Strength [Apical] Normal Respiratory Rate 20 17 Respiratory Effort / Characteristics Non-Labored Non-Labored Spontaneous Respiratory Depth Normal Normal Blood Pressure 127/75 Blood Pressure [Left Arm] 95/51 L Blood Pressure Mean 92 Blood Pressure Mean [Left Arm] 65 Pulse Oximetry 95 95 95 Oxygen Delivery Method Room Air Room Air Room Air Sepsis Recent Fever Within 48 Hours No Sepsis New/Unexplained Change in Mental Status N/A Sepsis Action Taken by Nursing No Action Required Home Medications Current Medication List: was personally reviewed by me Laboratory Data Attestation: I reviewed the patient's lab results. Result diagrams: 08/13/21 19:20 08/13/21 19:20 Lab Results 08/13/21 08/13/21 08/13/21 Range/Units 19:20 19:20 19:20 WBC 9.69 (4.8-10.8) K/uL RBC 2.58 L (4.2-5.4) M/uL Hgb 9.1 L (12.0-16.0) g/dL Hct 24.6 L (37-47) % MCV 95.3 (80-100) fL MCH 35.3 H (25-34) pg MCHC 37.0 H (32-36) g/dL RDW Std Deviation 69.8 H (36.4-46.3) fL RDW Coeff of Nando 20.2 H (11.5-14.5) % Plt Count 501 H (130-400) K/uL MPV 9.2 (7.4-10.4) fL Immature Gran % (Auto) 0.6 % Neut % (Auto) 67.8 % Lymph % (Auto) 22.5 % [place] % (Auto) 7.6 % Eos % (Auto) 1.2 % Baso % (Auto) 0.3 % Reticulocyte % (Auto) 13.1 H (0.5-2.0) % Neut # (Auto) 6.56 H (1.4-6.5) K/uL Lymph # (Auto) 2.18 (1.2-3.4) K/uL [place] # (Auto) 0.74 H (0.11-0.59) K/uL Eos # (Auto) 0.12 (0-0.5) K/uL Baso # (Auto) 0.03 (0-0.2) K/uL Reticulocyte # 0.34 H (0.02-0.10) 10^6/uL Immature Gran # (Auto) 0.06 H (0.00-0.02) K/uL Absolute Nucleated RBC 0.05 H (0-0) K/uL Nucleated RBC % (auto) 0.5 % Polychromasia 1+ Anisocytosis Present Sickle Cells 1+ Target Cells 1+ Ovalocytes 1+ Sodium 136 (136-145) mmol/L Potassium 4.0 (3.5-5.1) mmol/L Chloride 105 (98-107) mmol/L Carbon Dioxide 22 (21-32) mmol/L Anion Gap 9 (3-11) BUN 6 (6-23) mg/dl Creatinine 0.56 L (0.6-1.2) mg/dl Est Cr Clr Drug Dosing 146.0 ml/min Est GFR ( Amer) > 150.0 ml/min Est GFR (Non-Af Amer) 131.4 ml/min BUN/Creatinine Ratio 10.7 (10-20) Glucose 85 (70-99(Fasting)) mg/dl Calcium 9.8 (8.5-10.1) mg/dl Magnesium (1.7-2.4) mg/dl Total Bilirubin 4.1 H (0.2-1.0) mg/dl AST 27 (13-39) U/L ALT 14 (7-52) U/L Alkaline Phosphatase 55 (34-104) U/L Troponin I High Sens 6.6 (0-14) pg/ml Total Protein 8.3 (6.0-8.3) gm/dl Albumin 4.8 (3.4-5.0) gm/dl Globulin 3.5 (2.5-4.0) gm/dl Albumin/Globulin Ratio 1.4 (0.9-2) TSH (0.300-4.500) uIu/ml SARS-CoV-2, RNA, NAAT (NEGATIVE) 08/13/21 08/13/21 08/13/21 Range/Units 19:20 19:20 21:02 WBC (4.8-10.8) K/uL RBC (4.2-5.4) M/uL Hgb (12.0-16.0) g/dL Hct (37-47) % MCV (80-100) fL MCH (25-34) pg MCHC (32-36) g/dL RDW Std Deviation (36.4-46.3) fL RDW Coeff of Nando (11.5-14.5) % Plt Count (130-400) K/uL MPV (7.4-10.4) fL Immature Gran % (Auto) % Neut % (Auto) % Lymph % (Auto) % [place] % (Auto) % Eos % (Auto) % Baso % (Auto) % Reticulocyte % (Auto) (0.5-2.0) % Neut # (Auto) (1.4-6.5) K/uL Lymph # (Auto) (1.2-3.4) K/uL [place] # (Auto) (0.11-0.59) K/uL Eos # (Auto) (0-0.5) K/uL Baso # (Auto) (0-0.2) K/uL Reticulocyte # (0.02-0.10) 10^6/uL Immature Gran # (Auto) (0.00-0.02) K/uL Absolute Nucleated RBC (0-0) K/uL Nucleated RBC % (auto) % Polychromasia Anisocytosis Sickle Cells Target Cells Ovalocytes Sodium (136-145) mmol/L Potassium (3.5-5.1) mmol/L Chloride (98-107) mmol/L Carbon Dioxide (21-32) mmol/L Anion Gap (3-11) BUN (6-23) mg/dl Creatinine (0.6-1.2) mg/dl Est Cr Clr Drug Dosing ml/min Est GFR ( Amer) ml/min Est GFR (Non-Af Amer) ml/min BUN/Creatinine Ratio (10-20) Glucose (70-99(Fasting)) mg/dl Calcium (8.5-10.1) mg/dl Magnesium 1.8 (1.7-2.4) mg/dl Total Bilirubin (0.2-1.0) mg/dl AST (13-39) U/L ALT (7-52) U/L Alkaline Phosphatase (34-104) U/L Troponin I High Sens (0-14) pg/ml Total Protein (6.0-8.3) gm/dl Albumin (3.4-5.0) gm/dl Globulin (2.5-4.0) gm/dl Albumin/Globulin Ratio (0.9-2) TSH 1.577 (0.300-4.500) uIu/ml SARS-CoV-2, RNA, NAAT NEGATIVE (NEGATIVE) Administered Medications Hydromorphone HCl (Hydromorphone Inj 0.5 Mg/0.5 Ml Syr) 0.5 mg IV Q15M PRN PRN Reason: Pain Stop: 08/27/21 19:14 Last Admin: 08/13/21 21:17 Dose: 0.5 mg Documented by: [id number] Admin: 08/13/21 20:54 Dose: 0.5 mg Documented by: [id number] Discontinued Medications Sodium Chloride (Nss 1000ml) 1,000 mls @ 999 mls/hr IV .Q1H1M ONE Stop: 08/13/21 20:09 Last Admin: 08/13/21 19:32 Dose: 999 mls/hr Documented by: [id number] Morphine Sulfate (Morphine Sulfate 10 Mg/Ml Carp/Vial) 6 mg IV NOW STA Stop: 08/13/21 19:16 Last Admin: 08/13/21 19:32 Dose: 6 mg Documented by: [id number] Ondansetron HCl (Ondansetron Inj 2 Mg/Ml 2 Ml Vial) 4 mg IV NOW STA Stop: 08/13/21 19:16 Last Admin: 08/13/21 19:32 Dose: 4 mg Documented by: [id number] Imaging Data Radiologist's Impression: Chest X-Ray 08/13/21 19:15 SINGLE VIEW CHEST CLINICAL HISTORY: Atypical chest pain FINDINGS: An AP, portable, upright chest radiograph is compared to study dated 06/15/2021. The cardiomediastinal silhouette is unremarkable. The lungs and p leural spaces are clear. No pneumothorax is seen. The bony thorax is grossly intact. IMPRESSION: No active disease in the chest. ACT 112: Negative or not required by law. Electronically signed by: Richard Mcmahon M.D. 08/13/2021 7:27 PM Discharge Plan Visit Data Chief Complaint: Dizziness Stated Complaint: DIZZINESS ED Provider: Richard Joiner Discharge Problem: Sickle cell crisis, Anemia, Acute dehydration Patient Disposition: Admitted As Inpatient Condition: Fair Forms Stand Alone Forms: [facility] [employer] Prescriptions Prescriptions: No Action polyethylene glycol 3350 17 gram/dose powder 17 g PO DAILY PRN (Reason: Constipation) RF: 0 cholecalciferol (vitamin D3) [Vitamin D3] 25 mcg (1,000 unit) Tablet 25 mcg PO DAILY RF: 0 hydroxyurea 500 mg capsule 1,000 mg PO BID RF: 0 folic acid 1 mg Tablet 2 mg PO DAILY RF: 0 fentanyl 12 mcg/hr Patch 72 Hour 12 mcg transdermal Q3D Qty: 0 RF: 0 Referrals Referrals: PCP,NO [Primary Care Provider] -
--- NOTE | 2021-08-13 19:29 | XRay Report ---
SINGLE VIEW CHEST CLINICAL HISTORY: Atypical chest pain FINDINGS: An AP, portable, upright chest radiograph is compared to study dated 06/15/2021. The cardiom ediastinal silhouette is unremarkable. The lungs and pleural spaces are clear. No pneumothorax is see n. The bony thorax is grossly intact. IMPRESSION: No active disease in the chest. ACT 112: Negative or not required by law. Electronically signed by: Richard Mcmahon M.D. 08/13/2021 7:27 PM
[2021-08-13 19:41] LABS: Reticulocyte % 13.1 % (0.5-2.0); Reticulocytes # 0.34 10^6/uL (0.02-0.10)
[2021-08-13 20:09] LABS: Hematocrit (blood only) 24.6 % (37-47); Hemoglobin 9.1 g/dL (12.0-16.0); Mean Corpuscular Hemoglobin 35.3 pg (25-34); Mean Corpuscular Volume 95.3 fL (80-100); Mean Platelet Volume 9.2 fL (7.4-10.4); Nucleated RBC # (auto) 0.05 K/uL (0-0); Nucleated RBC % (auto) 0.5 %; Platelet Count 501 K/uL (130-400); RDW Coefficient of Variation 20.2 % (11.5-14.5); RDW Standard Deviation 69.8 fL (36.4-46.3); Red Blood Count 2.58 M/uL (4.2-5.4); White Blood Count 9.69 K/uL (4.8-10.8)
[2021-08-13 20:10] LABS: Anisocytosis Present; Basophils # (auto) 0.03 K/uL (0-0.2); Basophils % (auto) 0.3 %; Eosinophils # (auto) 0.12 K/uL (0-0.5); Eosinophils % (auto) 1.2 %; Immature Granulocytes # (auto) 0.06 K/uL (0.00-0.02); Immature Granulocytes % (auto) 0.6 %; Lymphocytes # (auto) 2.18 K/uL (1.2-3.4); Lymphocytes % (auto) 22.5 %; Monocytes # (auto) 0.74 K/uL (0.11-0.59); Monocytes % (auto) 7.6 %; Neutrophils # (auto) 6.56 K/uL (1.4-6.5); Neutrophils % (auto) 67.8 %; Ovalocytes 1+; Polychromasia 1+; Sickle Cells 1+; Target Cells 1+
[2021-08-13 20:17] LABS: Alanine Aminotransferase 14 U/L (7-52); Albumin Globulin Ratio 1.4 (0.9-2); Albumin Level 4.8 gm/dl (3.4-5.0); Alkaline Phosphatase 55 U/L (34-104); Anion Gap 9 (3-11); Aspartate Aminotransferase 27 U/L (13-39); BUN Creatinine Ratio 10.7 (10-20); Bilirubin,Total 4.1 mg/dl (0.2-1.0); Blood Urea Nitrogen 6 mg/dl (6-23); Calcium 9.8 mg/dl (8.5-10.1); Carbon Dioxide 22 mmol/L (21-32); Chloride 105 mmol/L (98-107); Est GFR (African American) > 150.0 ml/min; Est GFR (Non-African American) 131.4 ml/min; Globulin 3.5 gm/dl (2.5-4.0); Glucose 85 mg/dl (70-99(Fasting)); Sodium 136 mmol/L (136-145); Total Protein 8.3 gm/dl (6.0-8.3)
[2021-08-13 20:18] LABS: Troponin I High Sensitivity 6.6 pg/ml (0-14)
[2021-08-13] MEDS ORDERED: SODIUM CHLORIDE 0.9% 1000ML 500 ML IV ONE (20:44)
[2021-08-13] MEDS: HYDROmorphone INJ 0.5 MG/0.5 ML SYR IV PRN ×3 (20:54→23:16)
--- NOTE | 2021-08-13 22:33 | History & Physical Report ---
Date of Service August 13, 2021 Assessment & Plan (1) Sickle cell crisis: Plan: Donta Early (Tomi) is a 20yo female well known to this resident hospitalist service, with PMH significant for sickle cell disease and chronic pain, who presented to the ER with a three-day history of severe generalized pain, nausea, and dizziness. Severe generalized pain, nausea, dizziness Patient with sickle cell disease presenting with severe pain, nausea, and dizziness in the setting of running out of her home fentanyl patches On admission, BP slightly soft, vitals otherwise stable CXR without acute abnormality, oxygen saturation adequate - no evidence of acute chest syndrome Admission labs notable for anemia to 9.1 (baseline 8-10), thrombocytosis (501), hyperbilirubinemia (4.1); hsTroponin not elevated In the ED, received NSS 1.5L, zofran, morphine, and dilauded Etiology likely multifactorial: sickle cell disease acute pain crisis +/- opioid hyperalgesia Hyperbilirubinemia supports the diagnosis of SCD acute pain crisis; pt's symptoms are unlikely to be solely due to opioid hyperalgesia, nor drug seeking Initial pain control plan: Dilauded 0.5mg IV q30min prn overnight to get acute pain episode under control Once adequate pain control is achieved, transition back to home fentanyl patch Historically, patient has the most success with discharge (i.e. avoiding readmission) if she is stable off IV opioids for 24hr prior to DC Will hold off on NSAIDs given risk of ATN with dehydration in the setting of SCD acute pain crisis Can use warming packs for pain as needed; ice packs must be avoided Continue 1/2 NSS @ 80mL/hr overnight (one bag ordered) Continue home hydroxyurea Zofran prn nausea VTE prophylaxis with SCDs, encourage ambulation Incentive spirometry q1hWA PT/OT ordered Trend daily CBC Hypotension Patient with intermittent hypotension which is not uncommon for her during sickle cell acute pain episodes, in part d/t poor PO intake NSS 1.5L given in ED; BP later fell to 78/53 (asymptomatic); additional NSS 1L bolus ordered Continue 1/2 NSS @ 80mL/hr (one bag ordered) Encourage PO intake, continue to monitor, additional IVF boluses as needed Anemia Patient chronically anemic likely secondary to sickle cell disease; typically runs between 8.0-10.0 Hgb on admission 9.1, no signs of active bleeding Patient occasionally requires transfusions during acute pain episodes (last transfusion 04/2021); type/screen ordered Trend daily CBC Hyperbilirubinemia Tbili on admission 4.1, LFTs otherwise wnl; patient has a long history of hyperbilirubinemia during acute pain episodes Abdomen nontender on exam Suspect elevated bilirubin is secondary to increased RBC turnover rather than other etiologies Trend daily CMP; PT/INR ordered GERD: could be contributing to patient's nausea; added pantoprazole 40mg PO bid; continue zofran as above Constipation: continue home miralax FEN: regular diet, 1/ NSS @ 80mL/hr (one bag ordered) Code status: full code VTE ppx: SCDs Held home meds: fentanyl patch PT/OT: ordered Dispo: med/surg (2) Opioid-induced hyperalgesia: (3) Nausea: (4) Intractable pain: (5) Hyperbilirubinemia: (6) GERD (gastroesophageal reflux disease): (7) Depression: (8) Anemia: History of Present Illness Primary Care Provider: NO PCP Donta Early (Tomi) is a 20yo female well known to this resident hospitalist service, with PMH significant for sickle cell disease and chronic pain, who presented to the ER with a three-day history of severe generalized pain, nausea, and dizziness. Patient notes her symptoms feel similar to previous sickle cell acute pain episodes. Patient's sickle cell pain has been well- controlled over the past few months with fentanyl patches. Patient removed her last patch on 08/10 (three days ago) and unfortunately was having difficulty contacting her PCP for a renewed prescription, and thus was without pain control. This coincided with the onset of her presenting symptoms. Patient denies fever, chills, palpitations, SOB, vomiting, diarrhea, dysuria, numbness, tingling, weakness, or other symptoms. No recent travel or sick contacts. Allergies Allergy/AdvReac Type Severity Reaction Status Date / Time ekg electrodes Allergy Intermediate Blister Uncoded 08/13/21 22:04 Home Medications Medication Instructions Recorded Confirmed Type folic acid 1 mg tablet 2 mg PO DAILY 01/31/21 08/13/21 History hydroxyurea 500 mg capsule 1,000 mg PO BID 01/31/21 08/13/21 History fentanyl 12 mcg/hr transdermal 12 mcg TRANSDERMAL Q3D #0 ea 06/16/21 08/13/21 Rx patch cholecalciferol (vitamin D3) 25 25 mcg PO DAILY 08/13/21 08/13/21 History mcg (1,000 unit) tablet (Vitamin D3) polyethylene glycol 3350 17 17 g PO DAILY PRN 08/13/21 08/13/21 History gram/dose oral powder Past Med/Surg History Medical History Acute leg pain Borderline personality disorder Chest pain Chronic pain Depression with suicidal ideation Murmur, cardiac Nausea Overdose Overdose Person under investigation for COVID-19 Pneumonia Pseudoseizures Seizure-like activity Sickle cell anemia Sickle cell crisis Suicidal ideation Suicide gesture Surgical History No pertinent past surgical history Family History Mother Hypertension Father Ulcer Other Family history non-contributory Social History Smoking Status: Never smoker Tobacco Type: Cigarettes Second Hand Exposure: Yes; Do You Dip or Chew Tobacco: No; Hx Alcohol Use: Yes Alcohol type: other Hx Substance Use: No Preferred Language: Scottish Communication Ability: Effective Creative Services Specialist Required: No Beliefs That Will Affect Care: None marital status: Single Current Living Situation: Other Current Living Situation Comment: lives with roommates 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 current occupation: [employer] major Other Information That Helps Us Care for You: No Feels Safe at Home: Yes Safety Concerns: Feels Safe At This Time Assistive Devices: None Physical Exam Physical Exam: Constitutional: uncomfortable-appearing but no acute distress, laying in hospital bed HEENT: NCAT, very mild scleral icterus appreciated CV: regular rhythm, no murmur appreciated, extremities well-perfused, no LE ed arpit Resp: CTABL, no wheezes/rales/rhonchi appreciated, no increased work of breathing GI: soft, nondistended, nontender, BS normoactive MSK: ROM and strength intact, no flank tenderness Skin: warm, dry, no rash appreciated Neuro: alert, oriented, no focal neurologic deficit appreciated Results & Data Results & Data ([facility]) Vital Signs (Past 12 Hours) Vital Signs Temp Pulse Pulse Resp BP BP Pulse Ox 08/13/21 20:17 68 17 95/51 L 95 08/13/21 19:17 95 08/13/21 16:41 36.5 C 95 H 20 127/75 95 Supervising Physician Co-Signing Physician Notes Attending addendum: I have physically seen this patient, have supervised the medical residents activities, and agree with the H&P unless as otherwise noted. Assessment and Plan: Sickle cell crisis/severe generalized pain/nausea/dizziness- Status post 1.5 L normal saline in the ED Continue Zofran, morphine and Dilaudid as noted PT/OT as ordered Follow serial CBC with differential, chemistry profile magnesium levels Continue folic acid, hydroxyurea and vitamin D3 as noted Remaining orders and notations as noted Resident Activity Tracking Resident Involvement: Resident Care Provided and Microfabrication Engineer Manager Coverage Note Care Provided: Adult Hospital Medicine (1) Anemia Anemia type: unspecified type Qualified Code(s): D64.9 - Anemia, unspecified (2) GERD (gastroesophageal reflux disease) Esophagitis presence: esophagitis presence not specified Qualified Code(s): K21.9 - Gastro-esophageal reflux disease without esophagitis
[2021-08-13] MEDS ORDERED: ONDANSETRON INJ 2 MG/ML 2 ML VIAL ONE (22:35)
[2021-08-13] MEDS ORDERED: HYDROXYUREA 500 MG CAP PO STA (23:12)
[2021-08-13] MEDS ORDERED: SODIUM CHLORIDE 0.45 % 1,000 ML IV SCH (23:15)
[2021-08-14] MEDS ORDERED: SODIUM CHLORIDE 0.9% 1000ML 1,000 ML IV STA (00:09)
[2021-08-14 00:21] LABS: INR 1.1 (0.9-1.1); Prothrombin Time 11.9 Seconds (9.0-12.0)
[2021-08-14] MEDS ORDERED: POLYETHYLENE (MIRALAX) 17 GM PACK PO PRN (00:49)
[2021-08-14] MEDS ORDERED: MELATONIN 3 MG TAB PO PRN (00:49)
[2021-08-14] MEDS: PANTOprazole 40 MG TAB PO SCH ×3 (01:33→21:30)
[2021-08-14] MEDS: HYDROmorphone INJ 1 MG/ML SYRINGE IV PRN ×7 (01:49→21:31)
[2021-08-14 05:41] LABS: Basophils # (auto) 0.05 K/uL (0-0.2); Basophils % (auto) 0.5 %; Eosinophils # (auto) 0.14 K/uL (0-0.5); Eosinophils % (auto) 1.5 %; Hematocrit (blood only) 21.9 % (37-47); Hemoglobin 7.9 g/dL (12.0-16.0); Immature Granulocytes # (auto) 0.07 K/uL (0.00-0.02); Immature Granulocytes % (auto) 0.7 %; Lymphocytes # (auto) 2.26 K/uL (1.2-3.4); Lymphocytes % (auto) 24.1 %; Mean Corpuscular Hemoglobin 34.2 pg (25-34); Mean Corpuscular Hgb Conc 36.1 g/dL (32-36); Mean Corpuscular Volume 94.8 fL (80-100); Monocytes # (auto) 0.78 K/uL (0.11-0.59); Monocytes % (auto) 8.3 %; Neutrophils # (auto) 6.07 K/uL (1.4-6.5); Neutrophils % (auto) 64.9 %; Nucleated RBC # (auto) 0.07 K/uL (0-0); Nucleated RBC % (auto) 0.7 %; Platelet Count 460 K/uL (130-400); RDW Coefficient of Variation 20.7 % (11.5-14.5); RDW Standard Deviation 70.6 fL (36.4-46.3); Red Blood Count 2.31 M/uL (4.2-5.4); White Blood Count 9.37 K/uL (4.8-10.8)
[2021-08-14 06:03] LABS: Alanine Aminotransferase 12 U/L (7-52); Albumin Globulin Ratio 1.4 (0.9-2); Albumin Level 3.9 gm/dl (3.4-5.0); Alkaline Phosphatase 46 U/L (34-104); Anion Gap 5 (3-11); Aspartate Aminotransferase 23 U/L (13-39); BUN Creatinine Ratio 12.8 (10-20); Bilirubin,Total 3.2 mg/dl (0.2-1.0); Blood Urea Nitrogen 6 mg/dl (6-23); Calcium 8.4 mg/dl (8.5-10.1); Carbon Dioxide 24 mmol/L (21-32); Chloride 106 mmol/L (98-107); Creatinine Clr Calc Pharmacy 160.8 ml/min; Est GFR (African American) > 150.0 ml/min; Est GFR (Non-African American) 139.2 ml/min; Globulin 2.8 gm/dl (2.5-4.0); Glucose 99 mg/dl (70-99(Fasting)); Potassium 3.6 mmol/L (3.5-5.1); Sodium 135 mmol/L (136-145); Total Protein 6.7 gm/dl (6.0-8.3)
[2021-08-14 06:30] LABS: Anisocytosis Present; Ovalocytes 1+; Polychromasia 1+; Sickle Cells 1+; Target Cells 1+
[2021-08-14] MEDS: fentaNYL 12 MCG/HR TDSY TD SCH (08:21)
[2021-08-14] MEDS: FOLIC ACID 1 MG TAB PO SCH (08:22)
[2021-08-14] MEDS: HYDROXYUREA 500 MG CAP PO SCH ×2 (08:22→21:29)
--- NOTE | 2021-08-14 08:43 | Electrocardiogram Report ---
Test Reason : Blood Pressure : / mmHG Vent. Rate : 079 BPM Atrial Rate : 079 BPM P-R Int : 186 ms QRS Dur : 072 ms QT Int : 382 ms P-R-T Axes : 048 052 031 degrees QTc Int : 438 ms Poor data quality, interpretation may be adversely affected Normal sinus rhythm Right atrial enlargement Chronic T-wave inversion in Anteroseptal leads Abnormal ECG When compared with ECG of 15-JUN-2021 03:26, OK interval has decreased Confirmed by David Garcia ([id number]) on 08/14/2021 8:42:38 AM Referred By: REFERRED SELF Confirmed By:David Garcia
--- NOTE | 2021-08-14 08:58 | Hospitalist Progress Note ---
Date of Service August 14, 2021 Assessment & Plan (1) Sickle cell crisis: Plan: Donta Early (Tomi) is a 20yo female well known to this resident hospitalist service, with PMH significant for sickle cell disease and chronic pain, who presented to the ER with a three-day history of severe generalized pain, nausea, and dizziness. Severe generalized pain, nausea, dizziness -Patient with sickle cell disease presenting with severe pain, nausea, and dizziness in the setting of running out of her home fentanyl patches -On admission, BP slightly soft, vitals otherwise stable -CXR without acute abnormality, oxygen saturation adequate - no evidence of acute chest syndrome -Admission labs notable for anemia to 9.1 (baseline 8-10), thrombocytosis (501), hyperbilirubinemia (4.1); hsTroponin not elevated -In the ED: Received NSS 1.5L, Zofran, morphine, and Dilaudid -Etiology likely multifactorial: sickle cell disease acute pain crisis +/- opioid hyperalgesia -Hyperbilirubinemia supports the diagnosis of SCD acute pain crisis; pt's sy mptoms are unlikely to be solely due to opioid hyperalgesia, nor drug seeking -Initial pain control plan: Dilaudid 0.5mg IV q30min as needed overnight to get acute pain episode under control Once adequate pain control is achieved, transition back to home fentanyl patch Historically, patient has the most success with discharge (i.e. avoiding readmission) if she is stable off IV opioids for 24hr prior to DC * Will hold off on NSAIDs given risk of ATN with dehydration in the setting of SCD acute pain crisis * Can use warming packs for pain as needed; ice packs must be avoided * Continue 1/2 NSS @ 80mL/hr overnight (one bag ordered) * Continue home hydroxyurea * Zofran prn nausea * VTE prophylaxis with SCDs, encourage ambulation * Incentive spirometry q1hWA * PT/OT ordered * Trend daily CBC Hypotension -Patient with intermittent hypotension which is not uncommon for her during sickle cell acute pain episodes, in part d/t poor PO intake -NSS 1.5L given in ED; BP later fell to 78/53 (asymptomatic); additional NSS 1L bolus ordered * Continue 1/2 NSS @ 80mL/hr (one bag ordered) * Encourage PO intake, continue to monitor, additional IVF boluses as needed Anemia -Patient chronically anemic likely secondary to sickle cell disease; typically runs between 8.0-10.0 -Hgb on admission 9.1, no signs of active bleeding -Patient occasionally requires transfusions during acute pain episodes (last transfusion 04/2021); type/screen ordered * Trend daily CBC. Plan to transfuse at Hgb<7 Hyperbilirubinemia -Total bilirubin on admission 4.1, LFTs otherwise wnl; patient has a long history of hyperbilirubinemia during acute pain episodes -Abdomen nontender on exam -Suspect elevated bilirubin is secondary to increased RBC turnover rather than other etiologies * Trend daily CMP; PT/INR ordered GERD: could be contributing to patient's nausea; added pantoprazole 40mg PO bid; continue Zofran as above Constipation: continue home MiraLAX FEN: regular diet, 1/ NSS @ 80mL/hr Code status: full code VTE ppx: SCDs PT/OT: ordered Dispo: med/surg (2) Opioid-induced hyperalgesia: (3) Nausea: (4) Intractable pain: (5) Hyperbilirubinemia: (6) GERD (gastroesophageal reflux disease): (7) Depression: (8) Anemia: Admission and Anticipated Discharge Date Admission Date: August 13, 2021 Supervising Physician Co-Signing Physician Notes Resident Physician Supervision Note: I independently interviewed and examined the patient and verified the amaro history and physical, reviewed labs and image studies and agree with resident Dr. Shoemaker findings and care plan. Subjective Corroborated admission HPI with patient in the room this morning: Patient ran out of fentanyl patches, which occurs occasionally. However, she reports gre ater abdominal pain or nausea than usual on this occasion, which is why she presented to the emergency room. This morning, patient is asleep in bed upon entry into the room. She is aroused by voice. She reports fatigue, diffuse abdominal pain, residual nausea, and bilateral lower extremity pain, which she reports she has at baseline. She denies headache, chest pain, shortness of breath, or dizziness. Review of Systems Review of Systems: All systems reviewed & are unremarkable except as noted in HPI & below Physical Exam Physical Exam: General: Well-appearing, alert, interactive, and in no acute distress. HEENT: Normocephalic, atraumatic. EOM intact. Good conjugate gaze. Nares patent. Moist mucosal membranes. Tympanic membrane without bulging/fluid. Neck: Supple. No lymphadenopathy. Normal ROM. CV: Regular rate and rhythm. Normal S1 and S2. No murmurs gallops or rubs. No pedal edema. Respiratory: Normal respiratory effort. Lungs clear to auscultation bilaterally. No crackles, rhonchi, or wheezes. Abdomen: Soft, nondistended abdomen. No bruits heard on auscultation. Tenderness reported to mild, moderate palpation. No guarding or rebound. Extremities: Normal tone and ROM. Strength and sensation intact. Capillary refill <2 sec. 2+ dp equal bilaterally. Skin: Intact, without rashes, lesions, or erythema. Results & Data Results & Data ([facility]) Vital Signs (Past 12 Hours) Vital Signs Temp Pulse Pulse Pulse Resp BP BP 08/14/21 07:25 36.6 C 66 17 89/44 L 08/14/21 00:30 36.7 C 80 16 115/75 08/13/21 23:55 72 14 78/53 L 08/13/21 23:17 65 19 92/60 L 08/13/21 20:17 68 17 95/51 L Pulse Ox 08/14/21 07:25 93 08/14/21 00:30 95 08/13/21 23:55 92 08/13/21 23:17 93 08/13/21 20:17 95 Resident Activity Tracking Resident Involvement: Resident Care Provided Care Provided: Adult Hospital Medicine (1) Anemia Anemia type: unspecified type Qualified Code(s): D64.9 - Anemia, unspecified (2) GERD (gastroesophageal reflux disease) Esophagitis presence: esophagitis presence not specified Qualified Code(s): K21.9 - Gastro-esophageal reflux disease without esophagitis
[2021-08-14] MEDS: CHECK fentaNYL PATCH PLACEMENT SCH (15:24)
--- NOTE | 2021-08-14 22:43 | Billing Data ---
Date of Service August 14, 2021 Coding Level of Care Code INT OBSERVATION CARE 70M LVL 3
[2021-08-15] MEDS: HYDROmorphone INJ 1 MG/ML SYRINGE IV PRN ×10 (00:39→22:30)
[2021-08-15] MEDS: CHECK fentaNYL PATCH PLACEMENT SCH ×4 (00:39→23:32)
[2021-08-15] MEDS: ONDANSETRON INJ 2 MG/ML 2 ML VIAL IV PRN ×3 (00:39→16:02)
[2021-08-15] MEDS ORDERED: diphenhydrAMINE Capsule 25 MG CAP PO ONE (01:08)
--- NOTE | 2021-08-15 08:15 | Hospitalist Progress Note ---
Date of Service August 15, 2021 Assessment & Plan (1) Sickle cell crisis: Plan: Donta Early (Tomi) is a 20yo female well known to this resident hospitalist service, with PMH significant for sickle cell disease and chronic pain, who presented to the ER with a three-day history of severe generalized pain, nausea, and dizziness. Severe generalized pain, nausea, dizziness -Patient with sickle cell disease presenting with severe pain, nausea, and dizziness in the setting of running out of her home fentanyl patches -CXR without acute abnormality, oxygen saturation adequate - no evidence of acute chest syndrome -Admission labs notable for anemia to 9.1 (baseline 8-10), thrombocytosis (501), hyperbilirubinemia (4.1); hsTroponin not elevated -In the ED: Received NSS 1.5L, Zofran, morphine, and Dilaudid -Etiology likely multifactorial: sickle cell disease acute pain crisis +/- opioid hyperalgesia -Hyperbilirubinemia supports the diagnosis of SCD acute pain crisis; pt's symptoms are unlikely to be solely due to opioid hyperalgesia, nor drug seeking -Initial pain control plan: -Dilaudid 1mg IV q1h as needed overnight to get acute pain episode under control -Once adequate pain control is achieved, transition back to home fentanyl patch -Historically, patient has the most success with discharge if she is stable off IV opioids for 24hr prior to DC -given patient potential desire to transition off of narcotics would consider consulting Pain management on potential next step options -no current coverage for pain management in hospital at this time, will consult if service is available once pain has stabilized -Will hold off on NSAIDs given risk of ATN with dehydration in the setting of SCD acute pain crisis -Can use warming packs for pain as needed;ice packs should be avoided -Continue home hydroxyurea -Zofran prn nausea Anemia: -Patient chronically anemic likely secondary to sickle cell disease; typically runs between 8.0-10.0 -Hgb on admission 9.1, no signs of active bleeding -Patient occasionally requires transfusions during acute pain episodes (last transfusion 04/2021) -Hgb 7.8 on recheck on (08/15) -transfuse 1unit PRBCs -recheck in AM Avascular Necrosis: -XR hip/pelvis from 11/2020 demonstrating subacute subchondral fracture of the left femoral head with mild impaction -repeat XR hip/pelvis demonstrating avascular necrosis of the left femoral head with cortical collapse -orthopaedic surgery consulted for evaluation of potential options for treatment Hypotension: -Patient with intermittent hypotension which is not uncommon for her during sickle cell acute pain episodes, in part d/t poor PO intake -NSS 1.5L given in ED; BP later fell to 78/53 (asymptomatic) -improved after IV boluses -continue to monitor Hyperbilirubinemia: -Total bilirubin on admission 4.1, LFTs otherwise wnl; patient has a long history of hyperbilirubinemia during acute pain episodes -Suspect elevated bilirubin is secondary to increased RBC turnover rather than other etiologies GERD: could be contributing to patient's nausea; added pantoprazole 40mg PO bid; continue Zofran as above Constipation: continue home MiraLAX FEN: regular diet, 1/2 NSS @ 80mL/hr Code status: full code VTE ppx: SCDs (2) Opioid-induced hyperalgesia: (3) Nausea: (4) Intractable pain: (5) Hyperbilirubinemia: (6) GERD (gastroesophageal reflux disease): (7) Depression: (8) Anemia: Admission and Anticipated Discharge Date Admission Date: August 13, 2021 Supervising Physician Co-Signing Physician Notes Resident Physician Supervision Note: I independently interviewed and examined the patient and verified the amaro history and physical, reviewed labs and image studies and agree with resident Dr. Thompson findings and care plan. Subjective Patient reports that she has had some pain that has not been controlled by the dilaudid. Is concerned about the frequency that she has had pain medications, and the fact that she has been having consistent dizziness when she takes any pain medication. Is open to the idea of transitioning off of pain medications at some point but is not certain what that would look like. Additionally notes that over the last several months she has had worsening pains in her hips and more discomfort with walking and is wanting to know what further options she has going forward to address this continued pain. Review of Systems Review of Systems: All systems reviewed & are unremarkable except as noted in Subjective Physical Exam Constitutional: WD/WN, vitals as above Eyes: PERRL, conjunctivae normal, anicteric sclerae Respiratory: normal respiratory effort, lungs clear to auscultation Auscultation: no crackles, no rales, no rhonchi and no wheezes Cardiovascular: Rate/Rhythm: regular rate and regular rhythm Heart Sounds: no gallop, no murmur and no cardiac rub Vessels: no JVD Musculoskeletal: no cyanosis or clubbing, extremities motor strength 5/5 Skin: no rashes, warm and dry Neurologic: PERRL, EOMI, accommodation nl, no face palsy, no dysarthria CN's II-XI intact bilaterally Psychiatric: Orientation: alert and oriented x 3 Results & Data Results & Data ([facility]) Vital Signs (Past 12 Hours) Vital Signs Temp Pulse Resp BP BP Pulse Ox 08/15/21 07:12 36.5 C 68 16 95/58 L 93 08/14/21 21:28 36.9 C 69 16 91/51 L 90 Laboratory Results 08/15/21 Range/Units 09:03 WBC 6.82 (4.8-10.8) K/uL RBC 2.28 L (4.2-5.4) M/uL Hgb 7.8 L (12.0-16.0) g/dL Hct 21.6 L (37-47) % MCV 94.7 (80-100) fL MCH 34.2 H (25-34) pg MCHC 36.1 H (32-36) g/dL RDW Std Deviation 72.1 H (36.4-46.3) fL RDW Coeff of Nando 21.2 H (11.5-14.5) % Plt Count 508 H (130-400) K/uL MPV 8.9 (7.4-10.4) fL Immature Gran % (Auto) 0.3 % Neut % (Auto) 49.8 % Lymph % (Auto) 37.0 % Gordon % (Auto) 10.6 % Eos % (Auto) 1.9 % Baso % (Auto) 0.4 % Neut # (Auto) 3.40 (1.4-6.5) K/uL Lymph # (Auto) 2.52 (1.2-3.4) K/uL Gordon # (Auto) 0.72 H (0.11-0.59) K/uL Eos # (Auto) 0.13 (0-0.5) K/uL Baso # (Auto) 0.03 (0-0.2) K/uL Immature Gran # (Auto) 0.02 (0.00-0.02) K/uL Absolute Nucleated RBC 0.10 H (0-0) K/uL Nucleated RBC % (auto) 1.4 % Polychromasia 1+ Anisocytosis Present Sickle Cells 1+ Target Cells 1+ Ovalocytes 1+ Medications Administered Current Inpatient Medications Diphenhydramine HCl (Diphenhydramine Capsule 25 Mg Cap) 25 mg PO TID PRN PRN Reason: Itching Stop: 09/14/21 09:46 Fentanyl (Fentanyl 12 Mcg/Hr Tdsy) 12 mcg TD Q3D@0800 [facility] Stop: 08/28/21 06:59 Last Admin: 08/14/21 08:21 Dose: 12 mcg Documented by: Folic Acid (Folic Acid 1 Mg Tab) 2 mg PO DAILY [facility] Stop: 09/13/21 08:59 Last Admin: 08/15/21 08:32 Dose: 2 mg Documented by: Hydromorphone HCl (Hydromorphone Inj 1 Mg/Ml Syringe) 1 mg IV Q1H PRN PRN Reason: Pain Stop: 08/27/21 19:14 Last Admin: 08/15/21 08:24 Dose: 1 mg Documented by: Hydroxyurea (Hydroxyurea 500 Mg Cap) 1,000 mg PO BID [facility] Stop: 09/13/21 08:59 Last Admin: 08/15/21 08:32 Dose: 1,000 mg Documented by: Melatonin (Melatonin 3 Mg Tab) 3 mg PO HS PRN PRN Reason: Sleep Stop: 09/13/21 00:48 Miscellaneous (Fentanyl Patch Remove & Waste) 1 ea N/A Q3D@0759 [facility] Stop: 09/16/21 07:58 Miscellaneous (Check Fentanyl Patch Placement) 1 ea N/A QS [facility] Stop: 09/13/21 15:59 Last Admin: 08/15/21 08:21 Dose: 1 ea Documented by: Ondansetron HCl (Ondansetron Inj 2 Mg/Ml 2 Ml Vial) 4 mg IV Q4H PRN PRN Reason: nausea Stop: 09/12/21 23:11 Last Admin: 08/15/21 00:39 Dose: 4 mg Documented by: Pantoprazole Sodium (Pantoprazole 40 Mg Tab) 40 mg PO BID [facility] Stop: 09/12/21 23:14 Last Admin: 08/15/21 08:32 Dose: 40 mg Documented by: Polyethylene Glycol (Polyethylene (Miralax) 17 Gm Pack) 17 gm PO DAILY PRN PRN Reason: Constipation Stop: 09/13/21 00:48 Resident Activity Tracking Resident Involvement: Resident Care Provided Care Provided: Adult Hospital Medicine (1) Anemia Anemia type: unspecified type Qualified Code(s): D64.9 - Anemia, unspecified (2) GERD (gastroesophageal reflux disease) Esophagitis presence: esophagitis presence not specified Qualified Code(s): K21.9 - Gastro-esophageal reflux disease without esophagitis
[2021-08-15] MEDS: PANTOprazole 40 MG TAB PO SCH ×2 (08:32→20:17)
[2021-08-15] MEDS: FOLIC ACID 1 MG TAB PO SCH (08:32)
[2021-08-15] MEDS: HYDROXYUREA 500 MG CAP PO SCH ×2 (08:32→20:17)
[2021-08-15 09:55] LABS: Anisocytosis Present; Basophils # (auto) 0.03 K/uL (0-0.2); Basophils % (auto) 0.4 %; Eosinophils # (auto) 0.13 K/uL (0-0.5); Eosinophils % (auto) 1.9 %; Hematocrit (blood only) 21.6 % (37-47); Hemoglobin 7.8 g/dL (12.0-16.0); Immature Granulocytes # (auto) 0.02 K/uL (0.00-0.02); Immature Granulocytes % (auto) 0.3 %; Lymphocytes # (auto) 2.52 K/uL (1.2-3.4); Mean Corpuscular Hemoglobin 34.2 pg (25-34); Mean Corpuscular Hgb Conc 36.1 g/dL (32-36); Mean Corpuscular Volume 94.7 fL (80-100); Mean Platelet Volume 8.9 fL (7.4-10.4); Monocytes # (auto) 0.72 K/uL (0.11-0.59); Monocytes % (auto) 10.6 %; Neutrophils % (auto) 49.8 %; Nucleated RBC % (auto) 1.4 %; Ovalocytes 1+; Platelet Count 508 K/uL (130-400); Polychromasia 1+; RDW Coefficient of Variation 21.2 % (11.5-14.5); RDW Standard Deviation 72.1 fL (36.4-46.3); Red Blood Count 2.28 M/uL (4.2-5.4); Sickle Cells 1+; Target Cells 1+; White Blood Count 6.82 K/uL (4.8-10.8)
[2021-08-15] MEDS ORDERED: SODIUM CHLORIDE 0.9% 250 ML IV PRN (12:07)
--- NOTE | 2021-08-15 13:22 | XRay Report ---
SINGLE VIEW PELVIS; 2 VIEWS RIGHT HIP; 2 VIEWS LEFT HIP CLINICAL HISTORY: Avascular necrosis. Sickle cell disease. FINDINGS: An AP view of the pelvis with AP and frog-leg views of the right and left hip is correlated with KUB dated 05/29/2021. Correlation is made with pelvic CT dated 10/31/2020. The skeletal structure s are well mineralized. No acute fracture is seen. There is evidence of avascular necrosis of the lef t femoral head with diffuse sclerotic change, subchondral cyst formation, and cortical collapse. Ther e is spurring along the femoral head. The left acetabulum is normal. There is mild sclerosis of the r ight femoral head and the intertrochanteric right femur which may also represent changes of avascular necrosis/bone infarct. Sclerotic change is seen in the right sacrum. The sacroiliac joints are maint ained. There is minimal degenerative sclerosis of the pubic symphysis. The overlying soft tissues are within normal limits. Phleboliths are seen in the pelvis. IMPRESSION: 1. Findings of avascular necrosis involving the left femoral head as above with cortical collapse as above. 2. 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 This is better assessed on the 10/31/[address] 3. Sclerotic change is noted in the right sacrum. Electronically signed by: Richard Mcmahon M.D. 08/15/2021 1:21 PM
[2021-08-16] MEDS: HYDROmorphone INJ 1 MG/ML SYRINGE IV PRN ×10 (00:40→23:25)
[2021-08-16] MEDS: ONDANSETRON INJ 2 MG/ML 2 ML VIAL IV PRN ×3 (03:17→20:08)
[2021-08-16 07:05] LABS: Albumin Globulin Ratio 1.4 (0.9-2); Albumin Level 4.2 gm/dl (3.4-5.0); BUN Creatinine Ratio 11.3 (10-20); Calcium 9.2 mg/dl (8.5-10.1); Creatinine Clr Calc Pharmacy 131.9 ml/min; Est GFR (African American) 147.3 ml/min; Est GFR (Non-African American) 127.1 ml/min; Globulin 3.1 gm/dl (2.5-4.0); Potassium 3.6 mmol/L (3.5-5.1); Total Protein 7.3 gm/dl (6.0-8.3)
--- NOTE | 2021-08-16 07:20 | Orthopedic Consultation ---
Date of Service August 16, 2021 Assessment & Plan (1) Avascular necrosis of bone of hip: Patient is got bilateral hip avascular necrosis due to her underlying sickle cell disease. There is no signs of infection. Treatment is symptomatic with Tylenol and anti-inflammatories. Using a cane or walker would be appropriate during severe episodes of discomfort. Definitive treatment is total hip replacement when she decides she wants to have this done. She obviously just need to be in good medical situation beforehand. When to proceed along this course is really up to her. Certainly she needs to get through the sickle cell crisis now. In the meantime she can weight-bear as tolerated. May benefit for her to have a cane or a walker. Once again recommend Tylenol anti- inflammatories. This is not something we typically use narcotic pain medicines for. Any orthopedic questions can be directly [phone]. Were happy to see her on follow-up when she is discharged from the hospital and discuss this further. (2) Sickle cell anemia: (3) Opioid-induced hyperalgesia: (4) Sickle cell crisis: History of Present Illness Reason for Consultation: . Bilateral hip pain left side greater than the right Requesting Physician: . Attending Physician: Caty Serna MD . 21-year-old female with a known history of sickle cell anemia and recurrent sickle cell crisis center and on chronic pain medicine admitted with sickle cell crisis. We have been asked to see her for hip pain. Patient describes about a 1 year history of bilateral hip pain discomfort left side greater than the right. No particular injury. She is pretty tired this morning and history is little bit difficult and vague to obtain. She says has been bothered for a year. Is increased with weightbearing. The left side is worse than the right. She describes mostly groin pain. It is difficult for me to tell whether she has had previous orthopedic evaluation. She does seem now that she is got avascular necrosis of her hips. Apparently someone to talk to her about steroid injections. Allergies Allergy/AdvReac Type Severity Reaction Status Date / Time ekg electrodes Allergy Intermediate Blister Uncoded 08/13/21 22:04 Home Medications Medication Instructions Recorded Confirmed Type folic acid 1 mg tablet 2 mg PO DAILY 01/31/21 08/13/21 History hydroxyurea 500 mg capsule 1,000 mg PO BID 01/31/21 08/13/21 History fentanyl 12 mcg/hr transdermal 12 mcg TRANSDERMAL Q3D #0 ea 06/16/21 08/13/21 Rx patch cholecalciferol (vitamin D3) 25 25 mcg PO DAILY 08/13/21 08/13/21 History mcg (1,000 unit) tablet (Vitamin D3) polyethylene glycol 3350 17 17 g PO DAILY PRN 08/13/21 08/13/21 History gram/dose oral powder Past Med/Surg History Medical History Acute leg pain Borderline personality disorder Chest pain Chronic pain Depression with suicidal ideation Murmur, cardiac Nausea Overdose Overdose Person under investigation for COVID-19 Pneumonia Pseudoseizures Seizure-like activity Sickle cell anemia Sickle cell crisis Suicidal ideation Suicide gesture Surgical History No pertinent past surgical history Family History Mother Hypertension Father Ulcer Other Family history non-contributory Social History Smoking Status: Never smoker Tobacco Type: Cigarettes Second Hand Exposure: Yes; Do You Dip or Chew Tobacco: No; Hx Alcohol Use: Yes Alcohol type: other Hx Substance Use: No Preferred Language: Setswana Communication Ability: Effective Health Safety Coordinator Required: No Beliefs That Will Affect Care: None marital status: Single Current Living Situation: Other Current Living Situation Comment: lives with roommates 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 current occupation: [employer] major Other Information That Helps Us Care for You: No Feels Safe at Home: Yes Safety Concerns: Feels Safe At This Time Assistive Devices: None Review of Systems All systems reviewed & are unremarkable except as noted in HPI & below. Physical Exam . Physical examination reveals a healthy pleasant black female. She is lying in bed. Looks pretty comfortable this morning patient awake alert and oriented. She does just seem tired. Examination both hips reveal leg lengths to be equal. She is got fairly good hip motion but clearly has some pain with hip motion particular on the left side. She can do a straight leg raise on both sides. No knee effusions. She is neurologically intact. Results & Data Results & Data Laboratory Results . Diagnostic Findings . X-rays of the pelvis and both hips are available a vast necrosis with subchondral collapse and fracture on the left side. She got collapse with a typical subchondral fracture with increased bone density on x-ray. PG Care Time/CCT Total # of Minutes Spent Total Time Spent with Patient: Total time spent is greater than 50% in coordination of care (as documented) at patient's floor/unit and/or counseling patient: Coding Level of Care Code 63191 Inpt Consult Level 4 Diagnoses Avascular necrosis of bone of hip M87.059 Sickle cell anemia D57.00 Sickle-cell associated disorders: with unspecified crisis Opioid-induced hyperalgesia R20.8; T40.2X5A Sickle cell crisis D57.00 (1) Sickle cell anemia Sickle-cell associated disorders: with unspecified crisis Qualified Code(s): D57.00 - Hb-SS disease with crisis, unspecified
[2021-08-16 07:34] LABS: Hematocrit (blood only) 26.3 % (37-47); Hemoglobin 9.5 g/dL (12.0-16.0); Mean Corpuscular Hemoglobin 33.7 pg (25-34); Mean Corpuscular Hgb Conc 36.1 g/dL (32-36); Mean Corpuscular Volume 93.3 fL (80-100); Mean Platelet Volume 9.2 fL (7.4-10.4); Nucleated RBC # (auto) 0.34 K/uL (0-0); Nucleated RBC % (auto) 4.5 %; Platelet Count 493 K/uL (130-400); RDW Coefficient of Variation 19.5 % (11.5-14.5); RDW Standard Deviation 66.5 fL (36.4-46.3); Red Blood Count 2.82 M/uL (4.2-5.4); White Blood Count 7.57 K/uL (4.8-10.8)
[2021-08-16 07:35] LABS: Anisocytosis Present; Basophils # (auto) 0.04 K/uL (0-0.2); Basophils % (auto) 0.5 %; Eosinophils # (auto) 0.19 K/uL (0-0.5); Eosinophils % (auto) 2.5 %; Immature Granulocytes # (auto) 0.03 K/uL (0.00-0.02); Immature Granulocytes % (auto) 0.4 %; Lymphocytes # (auto) 3.23 K/uL (1.2-3.4); Lymphocytes % (auto) 42.7 %; Monocytes # (auto) 0.43 K/uL (0.11-0.59); Monocytes % (auto) 5.7 %; Neutrophils # (auto) 3.65 K/uL (1.4-6.5); Neutrophils % (auto) 48.2 %; Ovalocytes 1+; Platelet Estimate Increased (Normal); Polychromasia 1+; Sickle Cells 1+; Target Cells 1+
[2021-08-16 07:37] LABS: INR 1.1 (0.9-1.1); Prothrombin Time 11.4 Seconds (9.0-12.0)
[2021-08-16] MEDS: CHECK fentaNYL PATCH PLACEMENT SCH ×3 (08:25→23:21)
[2021-08-16] MEDS: HYDROXYUREA 500 MG CAP PO SCH ×2 (08:25→20:04)
[2021-08-16] MEDS: FOLIC ACID 1 MG TAB PO SCH (08:25)
[2021-08-16] MEDS: PANTOprazole 40 MG TAB PO SCH ×2 (08:25→20:04)
[2021-08-16] MEDS: diphenhydrAMINE Capsule 25 MG CAP PO PRN ×2 (11:07→23:25)
--- NOTE | 2021-08-16 17:15 | Hospitalist Progress Note ---
Date of Service August 16, 2021 Assessment & Plan (1) Sickle cell crisis: Plan: Donta Early (Tomi) is a 20yo female well known to this resident hospitalist service, with PMH significant for sickle cell disease and chronic pain, who presented to the ER with a three-day history of severe generalized pain, nausea, and dizziness. Severe generalized pain, nausea, dizziness -Patient with sickle cell disease presenting with severe pain, nausea, and dizziness in the setting of running out of her home fentanyl patches -On admission, BP slightly soft, vitals otherwise stable -CXR without acute abnormality, oxygen saturation adequate - no evidence of acute chest syndrome -Admission labs notable for anemia to 9.1 (baseline 8-10), thrombocytosis (501), hyperbilirubinemia (4.1); hsTroponin not elevated -In the ED: Received NSS 1.5L, Zofran, morphine, and Dilaudid -Etiology likely multifactorial: sickle cell disease acute pain crisis +/- opioid hyperalgesia -Hyperbilirubinemia supports the diagnosis of SCD acute pain crisis; pt's sy mptoms are unlikely to be solely due to opioid hyperalgesia, nor drug seeking -Historically, patient has the most success with discharge (i.e. avoiding readmission) if she is stable off IV opioids for 24hr prior to DC -Initial pain control plan: * Dilaudid 0.5mg IV q1h as needed overnight to get acute pain episode under control * continue fentanyl patch. * Will hold off on NSAIDs given risk of ATN with dehydration in the setting of SCD acute pain crisis * Can use warming packs for pain as needed;ice packs must be avoided * Continue home hydroxyurea * Zofran prn nausea * Incentive spirometry q1hWA * Trend daily CBC Hypotension -resolved with IV hydration * Encourage PO intake, continue to monitor, additional IVF boluses as needed Anemia -Patient chronically anemic likely secondary to sickle cell disease; typically runs between 8.0-10.0 -Hgb on admission 9.1, no signs of active bleeding -Patient occasionally requires transfusions during acute pain episodes (last transfusion 04/2021). * Patient transfused 2 units packed RBCs yesterday. AM hemoglobin 9.5, up from 7.8. * Trend daily CBC. Hyperbilirubinemia -Total bilirubin on admission 4.1, LFTs otherwise wnl; patient has a long history of hyperbilirubinemia during acute pain episodes -Abdomen nontender on exam -Suspect elevated bilirubin is secondary to increased RBC turnover rather than other etiologies * Trend daily CMP; PT/INR ordered GERD: could be contributing to patient's nausea; added pantoprazole 40mg PO bid; continue Zofran as above Constipation: continue home MiraLAX FEN: regular diet Code status: full code VTE ppx: SCDs PT/OT: ordered Dispo: med/surg (2) Opioid-induced hyperalgesia: (3) Nausea: (4) Intractable pain: (5) Hyperbilirubinemia: (6) GERD (gastroesophageal reflux disease): (7) Depression: (8) Anemia: Admission and Anticipated Discharge Date Admission Date: August 15, 2021 Supervising Physician Co-Signing Physician Notes Resident Physician Supervision Note: I independently interviewed and examined the patient and verified the amaro history and physical, reviewed labs and image studies and agree with resident Dr. Shoemaker findings and care plan. Subjective Patient reports increased dizziness at rest, which she attributes to combined fentanyl patch, Dilaudid use. She is worried that this is a repeat of before, where fentanyl patch was reduced from 25 mg to 12.5 (current dose). She is worried that she will have to be switched on to a different analgesic regimen if pain returns with reduced fentanyl patch dose. Otherwise, she has no acute subjective complaints this morning. Review of Systems Review of Systems: All systems reviewed & are unremarkable except as noted in HPI & below Physical Exam Physical Exam: General: Well-appearing, alert, interactive, and in no acute distress. HEENT: Normocephalic, atraumatic. EOM intact. Good conjugate gaze. Nares patent. Moist mucosal membranes. Neck: Supple. No lymphadenopathy. Normal ROM. CV: Regular rate and rhythm. Normal S1 and S2. No murmurs gallops or rubs. No pedal edema. Respiratory: Normal respiratory effort. Lungs clear to auscultation bilaterally. No crackles, rhonchi, or wheezes. Abdomen: Soft, nondistended abdomen. No bruits heard on auscultation. No te nderness to palpation. Extremities: Normal tone and ROM. Strength and sensation intact. Capillary refill <2 sec. 2+ dp equal bilaterally. Skin: Intact, without rashes, lesions, or erythema. Results & Data Results & Data ([facility]) Vital Signs (Past 12 Hours) Vital Signs Temp Pulse Resp BP Pulse Ox 08/16/21 14:29 36.8 C 69 17 100/62 93 08/16/21 07:02 36.7 C 65 16 95/54 L 91 Resident Activity Tracking Resident Involvement: Resident Care Provided Care Provided: Adult Hospital Medicine (1) Anemia Anemia type: unspecified type Qualified Code(s): D64.9 - Anemia, unspecified (2) GERD (gastroesophageal reflux disease) Esophagitis presence: esophagitis presence not specified Qualified Code(s): K21.9 - Gastro-esophageal reflux disease without esophagitis
[2021-08-17] MEDS: HYDROmorphone INJ 1 MG/ML SYRINGE IV PRN ×9 (02:52→21:32)
[2021-08-17] MEDS: HYDROXYUREA 500 MG CAP PO SCH ×2 (08:14→19:35)
[2021-08-17] MEDS: PANTOprazole 40 MG TAB PO SCH ×2 (08:14→19:35)
[2021-08-17] MEDS: FOLIC ACID 1 MG TAB PO SCH (08:14)
[2021-08-17] MEDS: fentaNYL 12 MCG/HR TDSY TD SCH (08:17)
[2021-08-17] MEDS: CHECK fentaNYL PATCH PLACEMENT SCH ×3 (08:18→20:47)
--- NOTE | 2021-08-17 08:30 | Hospitalist Progress Note ---
Date of Service August 17, 2021 Assessment & Plan (1) Sickle cell crisis: Plan: 20yo female well known to this resident hospitalist service, with PMH significant for sickle cell disease and chronic pain, who presented to the ER with a three-day history of severe generalized pain, nausea, and dizziness. Severe generalized pain, nausea, dizziness -Patient with sickle cell disease presenting with severe pain, nausea, and dizziness in the setting of running out of her home fentanyl patches -On admission, BP slightly soft, vitals otherwise stable -CXR without acute abnormality, oxygen saturation adequate - no evidence of acute chest syndrome -Admission labs notable for anemia to 9.1 (baseline 8-10), thrombocytosis (501), hyperbilirubinemia (4.1); hsTroponin not elevated -In the ED: Received NSS 1.5L, Zofran, morphine, and Dilaudid -Etiology likely multifactorial: sickle cell disease acute pain crisis +/- opioid hyperalgesia -Hyperbilirubinemia supports the diagnosis of SCD acute pain crisis; pt's symptoms are unlikely to be solely due to opioid hyperalgesia, nor drug seeking -Historically, patient has the most success with discharge (i.e. avoiding readmission) if she is stable off IV opioids for 24hr prior to DC -Initial pain control plan: * Dilaudid 0.5mg IV q1h as needed overnight to get acute pain episode under control * continue fentanyl patch * Will hold off on NSAIDs given risk of ATN with dehydration in the setting of SCD acute pain crisis * Can use warming packs for pain as needed;ice packs must be avoided * Continue home hydroxyurea * Incentive spirometry q1hWA * Trend daily CBC * Called pain management office. No response. Will place consult. Hypotension -Patient with intermittent hypotension which is not uncommon for her during sickle cell acute pain episodes, in part d/t poor PO intake -NSS 1.5L given in ED; BP later fell to 78/53 (asymptomatic); additional NSS 1L bolus ordered * Encourage PO intake, continue to monitor, additional IVF boluses as needed Anemia -Patient chronically anemic likely secondary to sickle cell disease; typically runs between 8.0-10.0 -Hgb on admission 9.1, no signs of active bleeding -Patient occasionally requires transfusions during acute pain episodes (last transfusion 04/2021). Patient transfused 2 units packed RBCs yesterday. AM hemoglobin 8.8 this morning, down from 9.5 * Trend daily CBC. Hyperbilirubinemia -Total bilirubin on admission 4.1, LFTs otherwise wnl; patient has a long history of hyperbilirubinemia during acute pain episodes -Abdomen nontender on exam -Suspect elevated bilirubin is secondary to increased RBC turnover rather than other etiologies * Trend daily CMP GERD: could be contributing to patient's nausea; added pantoprazole 40mg PO bid; continue Zofran as above Constipation: continue home MiraLAX, added senna FEN: regular diet Code status: full code VTE ppx: SCDs PT/OT: ordered Dispo: med/surg (2) Opioid-induced hyperalgesia: (3) Nausea: (4) Intractable pain: (5) Hyperbilirubinemia: (6) GERD (gastroesophageal reflux disease): (7) Depression: (8) Anemia: Admission and Anticipated Discharge Date Admission Date: August 15, 2021 Supervising Physician Co-Signing Physician Notes Resident Physician Supervision Note: I independently interviewed and examined the patient and verified the amaro history and physical, reviewed labs and image studies and agree with resident Dr. Shoemaker findings and care plan. Subjective Pt asleep in bed this morning. Awakes to voice. No acute events overnight. Patient unsure if dizziness is changed over the last 24 hours. Will reassess later. Review of Systems Review of Systems: All systems reviewed & are unremarkable except as noted in HPI & below Physical Exam Physical Exam: General: Well-appearing, alert, interactive, and in no acute distress. HEENT: Normocephalic, atraumatic. EOM intact. Good conjugate gaze. Nares patent. Moist mucosal membranes. Neck: Supple. No lymphadenopathy. Normal ROM. CV: Regular rate and rhythm. Normal S1 and S2. No murmurs gallops or rubs. No pedal edema. Respiratory: Normal respiratory effort. Lungs clear to auscultation bilaterally. No crackles, rhonchi, or wheezes. Abdomen: Soft, nondistended abdomen. No bruits heard on auscultation. No tenderness to palpation. Extremities: Normal tone and ROM. Strength and sensation intact. Capillary refill <2 sec. 2+ dp equal bilaterally. Skin: Intact, without rashes, lesions, or erythema. Results & Data Results & Data ([facility]) Vital Signs (Past 12 Hours) Vital Signs Temp Pulse Resp BP Pulse Ox 08/16/21 23:19 36.8 C 72 16 91/53 L 92 Resident Activity Tracking Resident Involvement: Resident Care Provided Care Provided: Adult Hospital Medicine (1) Anemia Anemia type: unspecified type Qualified Code(s): D64.9 - Anemia, unspecified (2) GERD (gastroesophageal reflux disease) Esophagitis presence: esophagitis presence not specified Qualified Code(s): K21.9 - Gastro-esophageal reflux disease without esophagitis
[2021-08-17 08:49] LABS: Basophils # (auto) 0.02 K/uL (0-0.2); Basophils % (auto) 0.3 %; Eosinophils # (auto) 0.14 K/uL (0-0.5); Eosinophils % (auto) 2.3 %; Hematocrit (blood only) 23.9 % (37-47); Hemoglobin 8.8 g/dL (12.0-16.0); Immature Granulocytes # (auto) 0.02 K/uL (0.00-0.02); Immature Granulocytes % (auto) 0.3 %; Lymphocytes % (auto) 44.3 %; Mean Corpuscular Hemoglobin 34.5 pg (25-34); Mean Corpuscular Hgb Conc 36.8 g/dL (32-36); Mean Corpuscular Volume 93.7 fL (80-100); Mean Platelet Volume 9.2 fL (7.4-10.4); Monocytes # (auto) 0.46 K/uL (0.11-0.59); Monocytes % (auto) 7.5 %; Neutrophils # (auto) 2.76 K/uL (1.4-6.5); Neutrophils % (auto) 45.3 %; Nucleated RBC # (auto) 0.27 K/uL (0-0); Nucleated RBC % (auto) 4.4 %; Platelet Count 464 K/uL (130-400); RDW Coefficient of Variation 19.9 % (11.5-14.5); RDW Standard Deviation 67.1 fL (36.4-46.3); Red Blood Count 2.55 M/uL (4.2-5.4)
[2021-08-17 08:59] LABS: Alanine Aminotransferase 12 U/L (7-52); Albumin Globulin Ratio 1.2 (0.9-2); Albumin Level 3.9 gm/dl (3.4-5.0); Alkaline Phosphatase 45 U/L (34-104); Anion Gap 5 (3-11); BUN Creatinine Ratio 13.5 (10-20); Bilirubin,Total 2.9 mg/dl (0.2-1.0); Blood Urea Nitrogen 7 mg/dl (6-23); Calcium 8.9 mg/dl (8.5-10.1); Carbon Dioxide 30 mmol/L (21-32); Chloride 102 mmol/L (98-107); Creatinine Clr Calc Pharmacy 157.3 ml/min; Est GFR (African American) > 150.0 ml/min; Est GFR (Non-African American) 134.7 ml/min; Globulin 3.2 gm/dl (2.5-4.0); Glucose 89 mg/dl (70-99(Fasting)); Sodium 137 mmol/L (136-145); Total Protein 7.1 gm/dl (6.0-8.3)
[2021-08-17 09:41] LABS: Howell-Jolly Bodies 1+; Ovalocytes 2+; Polychromasia 1+; Sickle Cells Occasional; Spherocytes 1+; Target Cells 2+
[2021-08-17 10:18] LABS: Potassium 3.8 mmol/L (3.5-5.1)
[2021-08-17] MEDS: ONDANSETRON INJ 2 MG/ML 2 ML VIAL IV PRN (11:06)
[2021-08-17] MEDS: SENNA 8.6 MG TAB PO SCH (12:55)
[2021-08-17] MEDS: diphenhydrAMINE Capsule 25 MG CAP PO PRN (14:38)
[2021-08-17] MEDS: POLYETHYLENE (MIRALAX) 17 GM PACK PO SCH (19:38)
[2021-08-18] MEDS: HYDROmorphone INJ 1 MG/ML SYRINGE IV PRN ×7 (00:09→22:24)
[2021-08-18] MEDS: ONDANSETRON INJ 2 MG/ML 2 ML VIAL IV PRN ×3 (02:52→22:24)
[2021-08-18 06:36] LABS: Basophils # (auto) 0.02 K/uL (0-0.2); Basophils % (auto) 0.3 %; Eosinophils # (auto) 0.13 K/uL (0-0.5); Eosinophils % (auto) 1.8 %; Hematocrit (blood only) 24.1 % (37-47); Hemoglobin 8.5 g/dL (12.0-16.0); Immature Granulocytes # (auto) 0.02 K/uL (0.00-0.02); Immature Granulocytes % (auto) 0.3 %; Lymphocytes # (auto) 2.41 K/uL (1.2-3.4); Lymphocytes % (auto) 33.1 %; Mean Corpuscular Hemoglobin 32.9 pg (25-34); Mean Corpuscular Hgb Conc 35.3 g/dL (32-36); Mean Corpuscular Volume 93.4 fL (80-100); Mean Platelet Volume 9.7 fL (7.4-10.4); Monocytes # (auto) 0.49 K/uL (0.11-0.59); Monocytes % (auto) 6.7 %; Neutrophils % (auto) 57.8 %; Nucleated RBC # (auto) 0.23 K/uL (0-0); Nucleated RBC % (auto) 3.2 %; Platelet Count 421 K/uL (130-400); RDW Coefficient of Variation 20.8 % (11.5-14.5); RDW Standard Deviation 68.5 fL (36.4-46.3); Red Blood Count 2.58 M/uL (4.2-5.4); White Blood Count 7.27 K/uL (4.8-10.8)
[2021-08-18 07:10] LABS: Alanine Aminotransferase 13 U/L (7-52); Albumin Globulin Ratio 1.2 (0.9-2); Albumin Level 4.1 gm/dl (3.4-5.0); Alkaline Phosphatase 38 U/L (34-104); Bilirubin,Total 3.1 mg/dl (0.2-1.0); Blood Urea Nitrogen 10 mg/dl (6-23); Calcium 9.1 mg/dl (8.5-10.1); Carbon Dioxide 31 mmol/L (21-32); Chloride 99 mmol/L (98-107); Creatinine Clr Calc Pharmacy 163.6 ml/min; Est GFR (African American) > 150.0 ml/min; Est GFR (Non-African American) 136.4 ml/min; Globulin 3.3 gm/dl (2.5-4.0); Glucose 87 mg/dl (70-99(Fasting)); Total Protein 7.4 gm/dl (6.0-8.3)
[2021-08-18 08:45] LABS: Anisocytosis Present; Ovalocytes 1+; Polychromasia 1+; Sickle Cells 1+; Target Cells 1+
[2021-08-18] MEDS: SENNA 8.6 MG TAB PO SCH (08:57)
[2021-08-18] MEDS: CHECK fentaNYL PATCH PLACEMENT SCH ×2 (08:57→16:39)
[2021-08-18] MEDS: FOLIC ACID 1 MG TAB PO SCH (08:57)
[2021-08-18] MEDS: POLYETHYLENE (MIRALAX) 17 GM PACK PO SCH ×2 (08:58→21:29)
[2021-08-18] MEDS: PANTOprazole 40 MG TAB PO SCH ×2 (08:58→21:29)
[2021-08-18] MEDS: HYDROXYUREA 500 MG CAP PO SCH ×2 (08:58→21:30)
[2021-08-18 10:33] LABS: Potassium 3.8 mmol/L (3.5-5.1)
[2021-08-18] MEDS: diphenhydrAMINE Capsule 25 MG CAP PO PRN (16:39)
--- NOTE | 2021-08-18 18:11 | Hospitalist Progress Note ---
Date of Service August 18, 2021 Assessment & Plan (1) Sickle cell crisis: Plan: 20yo female well known to this resident hospitalist service, with PMH significant for sickle cell disease and chronic pain, who presented to the ER with a three-day history of severe generalized pain, nausea, and dizziness. Severe generalized pain, nausea, dizziness -Patient with sickle cell disease presenting with severe pain, nausea, and dizziness in the setting of running out of her home fentanyl patches -On admission, BP slightly soft, vitals otherwise stable -CXR without acute abnormality, oxygen saturation adequate - no evidence of acute chest syndrome -Admission labs notable for anemia to 9.1 (baseline 8-10), thrombocytosis (501), hyperbilirubinemia (4.1); hsTroponin not elevated -In the ED: Received NSS 1.5L, Zofran, morphine, and Dilaudid -Etiology likely multifactorial: sickle cell disease acute pain crisis +/- opioid hyperalgesia -Hyperbilirubinemia supports the diagnosis of SCD acute pain crisis; pt's symptoms are unlikely to be solely due to opioid hyperalgesia, nor drug seeking -Historically, patient has the most success with discharge (i.e. avoiding readmission) if she is stable off IV opioids for 24hr prior to DC * Dilaudid 0.5mg IV spaced to every 3 hours following review of previous 24 hours. * Fentanyl patch Q3D * Zofran 4 mg IV every 4 as needed * Can use warming packs for pain as needed;ice packs must be avoided * Continue home hydroxyurea * Incentive spirometry q1hWA * Trend daily CBC Hypotension -Patient with intermittent hypotension which is not uncommon for her during s ickle cell acute pain episodes, in part d/t poor PO intake -NSS 1.5L given in ED; BP later fell to 78/53 (asymptomatic); additional NSS 1L bolus ordered * Encourage PO intake, continue to monitor, additional IVF boluses as needed Anemia -Patient chronically anemic likely secondary to sickle cell disease; typically runs between 8.0-10.0 -Hgb on admission 9.1, no signs of active bleeding -Patient occasionally requires transfusions during acute pain episodes (last transfusion 04/2021). Patient transfused 2 units packed RBCs yesterday. AM hemoglobin 8.5 today, slightly down from 8.8 yesterday. * Trend daily CBC. Hyperbilirubinemia -Total bilirubin on admission 4.1, LFTs otherwise wnl; patient has a long history of hyperbilirubinemia during acute pain episodes -Abdomen nontender on exam -Suspect elevated bilirubin is secondary to increased RBC turnover rather than other etiologies * Trend daily CMP GERD: could be contributing to patient's nausea; added pantoprazole 40mg PO bid; continue Zofran as above Constipation: scheduled MiraLAX twice daily, senna every morning. Plan to escalate if no bowel movement on assessment in the morning. FEN: regular diet Code status: full code VTE ppx: SCDs PT/OT: ordered Dispo: med/surg Admission and Anticipated Discharge Date Admission Date: August 15, 2021 Supervising Physician Co-Signing Physician Notes Resident Physician Supervision Note: I independently interviewed and examined the patient and verified the amaro history and physical, reviewed labs and image studies and agree with resident Dr. Shoemaker findings and care plan. Subjective Patient asleep. Denies having bowel movement today, according to nursing. Patient is aware that Dilaudid has been spaced to every 3 hours. Review of Systems Review of Systems: All systems reviewed & are unremarkable except as noted in HPI & below Physical Exam Physical Exam: General: Sleeping comfortably, in no acute distress. HEENT: Normocephalic, atraumatic. Nares patent. Moist mucosal membranes. Neck: Supple. No lymphadenopathy. Normal ROM. CV: Patient appears well perfused, without pedal edema. Respiratory: Normal respiratory effort. Abdomen: Soft, nondistended abdomen. Skin: Intact, without rashes, lesions, or erythema. Results & Data Results & Data ([facility]) Vital Signs (Past 12 Hours) Vital Signs Temp Pulse Resp BP Pulse Ox 08/18/21 15:17 36.9 C 76 14 98/60 L 94 08/18/21 08:41 73 112/74 98 08/18/21 08:00 37.4 C 65 18 101/69 94 Resident Activity Tracking Resident Involvement: Resident Care Provided Care Provided: Adult Hospital Medicine
[2021-08-19] MEDS: CHECK fentaNYL PATCH PLACEMENT SCH ×3 (00:46→15:12)
[2021-08-19] MEDS: HYDROmorphone INJ 1 MG/ML SYRINGE IV PRN ×9 (01:27→23:10)
[2021-08-19] MEDS: diphenhydrAMINE Capsule 25 MG CAP PO PRN ×2 (04:32→23:10)
[2021-08-19] MEDS: PANTOprazole 40 MG TAB PO SCH ×2 (08:33→20:26)
[2021-08-19] MEDS: SENNA 8.6 MG TAB PO SCH ×2 (08:33→20:26)
[2021-08-19] MEDS: POLYETHYLENE (MIRALAX) 17 GM PACK PO SCH ×3 (08:33→20:09)
[2021-08-19] MEDS: FOLIC ACID 1 MG TAB PO SCH (08:33)
[2021-08-19] MEDS: HYDROXYUREA 500 MG CAP PO SCH ×2 (08:33→20:26)
[2021-08-19 10:38] LABS: Basophils # (auto) 0.04 K/uL (0-0.2); Basophils % (auto) 0.6 %; Eosinophils # (auto) 0.13 K/uL (0-0.5); Eosinophils % (auto) 1.9 %; Hematocrit (blood only) 25.1 % (37-47); Immature Granulocytes # (auto) 0.02 K/uL (0.00-0.02); Immature Granulocytes % (auto) 0.3 %; Lymphocytes # (auto) 2.22 K/uL (1.2-3.4); Lymphocytes % (auto) 32.4 %; Mean Corpuscular Hemoglobin 33.8 pg (25-34); Mean Corpuscular Hgb Conc 35.9 g/dL (32-36); Mean Corpuscular Volume 94.4 fL (80-100); Mean Platelet Volume 9.9 fL (7.4-10.4); Monocytes # (auto) 0.47 K/uL (0.11-0.59); Monocytes % (auto) 6.9 %; Neutrophils # (auto) 3.98 K/uL (1.4-6.5); Neutrophils % (auto) 57.9 %; Nucleated RBC # (auto) 0.28 K/uL (0-0); Nucleated RBC % (auto) 4.1 %; Platelet Count 463 K/uL (130-400); RDW Coefficient of Variation 20.6 % (11.5-14.5); RDW Standard Deviation 69.5 fL (36.4-46.3); Red Blood Count 2.66 M/uL (4.2-5.4); White Blood Count 6.86 K/uL (4.8-10.8)
[2021-08-19 10:39] LABS: Alanine Aminotransferase 14 U/L (7-52); Albumin Globulin Ratio 1.3 (0.9-2); Alkaline Phosphatase 58 U/L (34-104); Anion Gap 7 (3-11); Aspartate Aminotransferase 34 U/L (13-39); BUN Creatinine Ratio 15.7 (10-20); Bilirubin,Total 2.8 mg/dl (0.2-1.0); Blood Urea Nitrogen 8 mg/dl (6-23); Calcium 9.3 mg/dl (8.5-10.1); Carbon Dioxide 29 mmol/L (21-32); Chloride 100 mmol/L (98-107); Creatinine Clr Calc Pharmacy 160.4 ml/min; Est GFR (African American) > 150.0 ml/min; Est GFR (Non-African American) 135.5 ml/min; Globulin 3.2 gm/dl (2.5-4.0); Glucose 105 mg/dl (70-99(Fasting)); Potassium 3.5 mmol/L (3.5-5.1); Sodium 136 mmol/L (136-145); Total Protein 7.2 gm/dl (6.0-8.3)
[2021-08-19 11:10] LABS: Anisocytosis Present; Howell-Jolly Bodies 1+; Polychromasia 1+; Sickle Cells 1+; Target Cells 1+
--- NOTE | 2021-08-19 15:32 | Hospitalist Progress Note ---
Date of Service August 19, 2021 Assessment & Plan (1) Sickle cell crisis: Plan: 20yo female well known to this resident hospitalist service, with PMH significant for sickle cell disease and chronic pain, who presented to the ER with a three-day history of severe generalized pain, nausea, and dizziness. Severe generalized pain, nausea, dizziness -Patient with sickle cell disease presenting with severe pain, nausea, and dizziness in the setting of running out of her home fentanyl patches -On admission, BP slightly soft, vitals otherwise stable -CXR without acute abnormality, oxygen saturation adequate - no evidence of acute chest syndrome -Admission labs notable for anemia to 9.1 (baseline 8-10), thrombocytosis (501), hyperbilirubinemia (4.1); hsTroponin not elevated -In the ED: Received NSS 1.5L, Zofran, morphine, and Dilaudid -Etiology likely multifactorial: sickle cell disease acute pain crisis +/- opioid hyperalgesia -Hyperbilirubinemia supports the diagnosis of SCD acute pain crisis; pt's symptoms are unlikely to be solely due to opioid hyperalgesia, nor drug seeking -Historically, patient has the most success with discharge (i.e. avoiding readmission) if she is stable off IV opioids for 24hr prior to DC * Dilaudid 0.5mg IV spaced to every 2 hours * Fentanyl patch Q3D * Zofran 4 mg IV every 4 hours as needed * Can use warming packs for pain as needed;ice packs must be avoided * Continue home hydroxyurea * Incentive spirometry q1hWA * Trend CBC Hypotension -Patient with intermittent hypotension which is not uncommon for her during sickle cell acute pain episodes, in part d/t poor PO intake -NSS 1.5L given in ED; BP later fell to 78/53 (asymptomatic); additional NSS 1L bolus ordered * Encourage PO intake, continue to monitor, additional IVF boluses as needed Anemia -Patient chronically anemic likely secondary to sickle cell disease; typically runs between 8.0-10.0 -No signs of active bleeding -Patient occasionally requires transfusions during acute pain episodes (last transfusion 04/2021). Patient transfused 2 units packed RBCs yesterday. AM hemoglobin 9.0 today, up from 8.5 yesterday. * Trend CBC Hyperbilirubinemia -Total bilirubin on admission 4.1, LFTs otherwise wnl; patient has a long history of hyperbilirubinemia during acute pain episodes -Suspect elevated bilirubin is secondary to increased RBC turnover rather than other etiologies * Trend daily CMP GERD: Pantoprazole 40 mg p.o. twice daily; continue Zofran as above Constipation: MiraLAX 51 g twice daily, Senokot 8.6 mg p.o. twice daily. FEN: regular diet Code status: full code VTE ppx: SCDs PT/OT: ordered Dispo: med/surg Admission and Anticipated Discharge Date Admission Date: August 15, 2021 Supervising Physician Co-Signing Physician Notes Resident Physician Supervision Note: I independently interviewed and examined the patient and verified the amaro history and physical, reviewed labs and image studies and agree with resident Dr. Shoemaker findings and care plan. Subjective Patient complains of generalized pain with insomnia. She is aware Dilaudid was spaced to every 3 hours. She has yet to have a bowel movement. Review of Systems Review of Systems: All systems reviewed & are unremarkable except as noted in HPI & below Physical Exam Physical Exam: General: Well-appearing, alert, interactive, and in no acute distress. HEENT: Normocephalic, atraumatic. EOM intact. Good conjugate gaze. Nares patent. Moist mucosal membranes. Neck: Supple. No lymphadenopathy. Normal ROM. CV: Regular rate and rhythm. Systolic murmur loudest at left upper sternal border. No gallops or rubs. No pedal edema. Respiratory: Normal respiratory effort. Lungs clear to auscultation bilaterally. No crackles, rhonchi, or wheezes. Abdomen: Soft, nondistended abdomen. No bruits heard on auscultation. No tenderness to deep palpation. No guarding or rebound. Extremities: Normal tone and ROM. Strength and sensation intact. Capillary refill <2 sec. 2+ dp equal bilaterally. Skin: Intact, without rashes, lesions, or erythema. Results & Data Results & Data ([facility]) Vital Signs (Past 12 Hours) Vital Signs Temp Pulse Resp BP Pulse Ox 08/19/21 07:52 36.9 C 69 16 96/60 L 95 Resident Activity Tracking Resident Involvement: Resident Care Provided Care Provided: Adult [facility] Medicine
[2021-08-19] MEDS: ONDANSETRON INJ 2 MG/ML 2 ML VIAL IV PRN (23:10)
[2021-08-20] MEDS: CHECK fentaNYL PATCH PLACEMENT SCH ×4 (00:11→22:00)
[2021-08-20] MEDS: POLYETHYLENE (MIRALAX) 17 GM PACK PO SCH (08:25)
[2021-08-20] MEDS: fentaNYL 12 MCG/HR TDSY TD SCH (08:28)
[2021-08-20] MEDS: HYDROXYUREA 500 MG CAP PO SCH ×2 (08:28→20:00)
[2021-08-20] MEDS: PANTOprazole 40 MG TAB PO SCH ×2 (08:28→19:59)
[2021-08-20] MEDS: FOLIC ACID 1 MG TAB PO SCH (08:28)
[2021-08-20] MEDS: SENNA 8.6 MG TAB PO SCH ×2 (08:28→19:59)
[2021-08-20] MEDS: HYDROmorphone INJ 1 MG/ML SYRINGE IV PRN ×5 (08:40→21:57)
[2021-08-20 09:24] LABS: Basophils # (auto) 0.03 K/uL (0-0.2); Basophils % (auto) 0.5 %; Eosinophils # (auto) 0.11 K/uL (0-0.5); Eosinophils % (auto) 1.8 %; Hematocrit (blood only) 25.2 % (37-47); Immature Granulocytes # (auto) 0.02 K/uL (0.00-0.02); Immature Granulocytes % (auto) 0.3 %; Lymphocytes # (auto) 2.08 K/uL (1.2-3.4); Lymphocytes % (auto) 33.5 %; Mean Corpuscular Hemoglobin 34.2 pg (25-34); Mean Corpuscular Hgb Conc 35.7 g/dL (32-36); Mean Corpuscular Volume 95.8 fL (80-100); Mean Platelet Volume 9.2 fL (7.4-10.4); Monocytes # (auto) 0.35 K/uL (0.11-0.59); Monocytes % (auto) 5.6 %; Neutrophils # (auto) 3.61 K/uL (1.4-6.5); Neutrophils % (auto) 58.3 %; Nucleated RBC % (auto) 4.8 %; Platelet Count 443 K/uL (130-400); RDW Coefficient of Variation 20.4 % (11.5-14.5); RDW Standard Deviation 70.8 fL (36.4-46.3); Red Blood Count 2.63 M/uL (4.2-5.4)
[2021-08-20 09:35] LABS: Anion Gap 7 (3-11); BUN Creatinine Ratio 12.2 (10-20); Blood Urea Nitrogen 6 mg/dl (6-23); Calcium 9.5 mg/dl (8.5-10.1); Carbon Dioxide 29 mmol/L (21-32); Chloride 100 mmol/L (98-107); Creatinine Clr Calc Pharmacy 166.9 ml/min; Est GFR (African American) > 150.0 ml/min; Est GFR (Non-African American) 137.3 ml/min; Glucose 101 mg/dl (70-99(Fasting)); Potassium 3.8 mmol/L (3.5-5.1); Sodium 136 mmol/L (136-145)
[2021-08-20 10:45] LABS: Anisocytosis Present; Ovalocytes 1+; Polychromasia 1+; Sickle Cells 1+; Target Cells 1+
[2021-08-20] MEDS: oxyCODONE HCL IR 5 MG TAB (IMMEDIATE RELEASE) PO PRN ×3 (11:01→23:58)
[2021-08-20] MEDS ORDERED: KETOROLAC TROMETHAMINE 15 MG/ML VIAL IV ONE (13:00)
[2021-08-20] MEDS: SODIUM CHLOR 0.45% + 20MEQ KCL 20 MEQ/1,000 ML BAG IV SCH ×2 (13:12→22:00)
[2021-08-20] MEDS ORDERED: LAVAGE SOLUTION 4000ML PO ONE (13:30)
--- NOTE | 2021-08-20 15:26 | Hospitalist Progress Note ---
Date of Service August 20, 2021 Assessment & Plan (1) Sickle cell crisis: Plan: 20yo female well known to this resident hospitalist service, with PMH significant for sickle cell disease and chronic pain, who presented to the ER with a three-day history of severe generalized pain, nausea, and dizziness. Severe generalized pain, nausea, dizziness -Patient with sickle cell disease presenting with severe pain, nausea, and dizziness in the setting of running out of her home fentanyl patches -On admission, BP slightly soft, vitals otherwise stable -CXR without acute abnormality, oxygen saturation adequate - no evidence of acute chest syndrome -Admission labs notable for anemia to 9.1 (baseline 8-10), thrombocytosis (501), hyperbilirubinemia (4.1); hsTroponin not elevated -ED: Received NSS 1.5L, Zofran, morphine, and Dilaudid -Etiology likely multifactorial: sickle cell disease acute pain crisis +/- opioid hyperalgesia -Hyperbili supports the diagnosis of SCD acute pain crisis; pt's symptoms are unlikely to be solely due to opioid hyperalgesia, nor drug seeking -Historically, patient has the most success with discharge (i.e. avoiding readmission) if she is stable off IV opioids for 24hr prior to DC * Dilaudid 1mg IV q2h * Fentanyl patch Q3D * Zofran 4 mg IV q4h prn * oxycodone 10mg po q4h prn * Can use warming packs for pain as needed;ice packs must be avoided * Continue home hydroxyurea, folic acid * Incentive spirometry q1hWA * Trend CBC Constipation -no BM since admission, likely multifactorial from opiods and pain -cont. senakote -start 1gm golytely for bowel prep dose + 1/2NSS IVF Hypotension, improving -Patient with intermittent hypotension which is not uncommon for her during sickle cell acute pain episodes, in part d/t poor PO intake -Encourage PO intake, additional IVF boluses as needed Anemia, stable -Patient chronically anemic likely 2/2 sickle cell disease; typically runs between 8.0-10.0 -No signs of active bleeding -Patient occasionally requires transfusions during acute pain episodes (last transfusion 04/2021). Patient transfused 2 units packed RBCs during stay. Hgb 9. -Trend CBC Hyperbilirubinemia -Total bilirubin on admission 4.1, LFTs otherwise wnl; patient has a long history of hyperbilirubinemia during acute pain episodes -Suspect elevated bilirubin is secondary to increased RBC turnover rather than other etiologies -Trend daily CMP GERD -Pantoprazole 40 mg po bid -continue Zofran as above FEN: regular Code status: full VTE ppx: SCDs Dispo: med/surg Admission and Anticipated Discharge Date Admission Date: August 15, 2021 Supervising Physician Co-Signing Physician Notes I personally examined the patient and verified all amaro points of history and exam, discussed case, and agree with decision making with Dr Bailey general malaise, achiness. still constipated vitals noted nad heent nc at mmm breathing unlabored no accessory muscles good effort skin no rashes no pallor or icterus neuro no focal deficits sickle cell w acute pain crisis -Resume IV fluids, add home dose of oxycodone prior to Dilaudid to try to transition to what she would be taking at home. Continue current meds/supportive care otherwise. Constipationalready failing significant doses of MiraLAXdiscussed optio nsGoLytely prep. Otherwise as above Subjective Seen at bedside this morning. Able to sleep better overnight. Did have a dilaudid dose this morning. Still no BM. Review of Systems Review of Systems: All systems reviewed & are unremarkable except as noted in HPI & below Physical Exam Physical Exam: General: Well-appearing, alert, and in no acute distress. HEENT: NC/AT. Moist mucosal membranes. Neck: Supple. No lymphadenopathy. CV: RRR. Systolic murmur loudest at left upper sternal border. No gallops or rubs. No pedal edema. Respiratory: Normal respiratory effort. CTA bilaterally. No crackles, rhonchi, or wheezes. Abdomen: Soft, nontender, nondistended abdomen. No guarding or rebound. Extremities: Strength and sensation intact Skin: Intact, without rashes, lesions, or erythema. Results & Data Results & Data ([facility]) Vital Signs (Past 12 Hours) Vital Signs Temp Pulse Resp BP Pulse Ox 08/20/21 07:41 36.9 C 77 16 84/42 L 94 Laboratory Results 08/20/21 08/20/21 Range/Units 09:00 09:00 WBC 6.20 (4.8-10.8) K/uL RBC 2.63 L (4.2-5.4) M/uL Hgb 9.0 L (12.0-16.0) g/dL Hct 25.2 L (37-47) % MCV 95.8 (80-100) fL MCH 34.2 H (25-34) pg MCHC 35.7 (32-36) g/dL RDW Std Deviation 70.8 H (36.4-46.3) fL RDW Coeff of Nando 20.4 H (11.5-14.5) % Plt Count 443 H (130-400) K/uL MPV 9.2 (7.4-10.4) fL Immature Gran % (Auto) 0.3 % Neut % (Auto) 58.3 % Lymph % (Auto) 33.5 % [place] % (Auto) 5.6 % Eos % (Auto) 1.8 % Baso % (Auto) 0.5 % Neut # (Auto) 3.61 (1.4-6.5) K/uL Lymph # (Auto) 2.08 (1.2-3.4) K/uL [place] # (Auto) 0.35 (0.11-0.59) K/uL Eos # (Auto) 0.11 (0-0.5) K/uL Baso # (Auto) 0.03 (0-0.2) K/uL Immature Gran # (Auto) 0.02 (0.00-0.02) K/uL Absolute Nucleated RBC 0.30 H (0-0) K/uL Nucleated RBC % (auto) 4.8 % Polychromasia 1+ Anisocytosis Present Sickle Cells 1+ Target Cells 1+ Ovalocytes 1+ Sodium 136 (136-145) mmol/L Potassium 3.8 (3.5-5.1) mmol/L Chloride 100 (98-107) mmol/L Carbon Dioxide 29 (21-32) mmol/L Anion Gap 7 (3-11) BUN 6 (6-23) mg/dl Creatinine 0.49 L (0.6-1.2) mg/dl Est Cr Clr Drug Dosing 166.9 ml/min Est GFR ( Amer) > 150.0 ml/min Est GFR (Non-Af Amer) 137.3 ml/min BUN/Creatinine Ratio 12.2 (10-20) Glucose 101 H (70-99(Fasting)) mg/dl Calcium 9.5 (8.5-10.1) mg/dl Resident Activity Tracking Resident Involvement: Resident Care Provided Care Provided: [facility] Medicine
[2021-08-20] MEDS: ONDANSETRON INJ 2 MG/ML 2 ML VIAL IV PRN (17:15)
--- NOTE | 2021-08-20 17:47 | Billing Data ---
Date of Service August 20, 2021 Coding Level of Care Code 70227 Subseq Hosp Care Lvl 3
[2021-08-21] MEDS: diphenhydrAMINE Capsule 25 MG CAP PO PRN (01:26)
[2021-08-21] MEDS: HYDROmorphone INJ 1 MG/ML SYRINGE IV PRN ×7 (01:26→18:35)
[2021-08-21 06:18] LABS: Basophils # (auto) 0.04 K/uL (0-0.2); Basophils % (auto) 0.9 %; Eosinophils # (auto) 0.08 K/uL (0-0.5); Eosinophils % (auto) 1.8 %; Hemoglobin 7.8 g/dL (12.0-16.0); Immature Granulocytes # (auto) 0.02 K/uL (0.00-0.02); Immature Granulocytes % (auto) 0.4 %; Lymphocytes # (auto) 2.05 K/uL (1.2-3.4); Lymphocytes % (auto) 45.4 %; Mean Corpuscular Hemoglobin 33.5 pg (25-34); Mean Corpuscular Hgb Conc 35.5 g/dL (32-36); Mean Corpuscular Volume 94.4 fL (80-100); Mean Platelet Volume 9.5 fL (7.4-10.4); Monocytes # (auto) 0.33 K/uL (0.11-0.59); Monocytes % (auto) 7.3 %; Neutrophils % (auto) 44.2 %; Nucleated RBC # (auto) 0.25 K/uL (0-0); Nucleated RBC % (auto) 5.6 %; Platelet Count 246 K/uL (130-400); RDW Coefficient of Variation 20.3 % (11.5-14.5); Red Blood Count 2.33 M/uL (4.2-5.4); White Blood Count 4.52 K/uL (4.8-10.8)
[2021-08-21 06:39] LABS: Anisocytosis Present; Sickle Cells 1+; Target Cells 1+
[2021-08-21 06:50] LABS: Alanine Aminotransferase 22 U/L (7-52); Albumin Globulin Ratio 1.3 (0.9-2); Albumin Level 3.8 gm/dl (3.4-5.0); Alkaline Phosphatase 52 U/L (34-104); Anion Gap 6 (3-11); Aspartate Aminotransferase 52 U/L (13-39); BUN Creatinine Ratio 14.6 (10-20); Bilirubin,Total 2.7 mg/dl (0.2-1.0); Blood Urea Nitrogen 6 mg/dl (6-23); Calcium 8.8 mg/dl (8.5-10.1); Carbon Dioxide 28 mmol/L (21-32); Chloride 102 mmol/L (98-107); Creatinine Clr Calc Pharmacy 199.5 ml/min; Est GFR (African American) > 150.0 ml/min; Est GFR (Non-African American) 145.6 ml/min; Glucose 97 mg/dl (70-99(Fasting)); Potassium 4.1 mmol/L (3.5-5.1); Sodium 136 mmol/L (136-145); Total Protein 6.8 gm/dl (6.0-8.3)
[2021-08-21] MEDS: SODIUM CHLOR 0.45% + 20MEQ KCL 20 MEQ/1,000 ML BAG IV SCH ×2 (08:09→18:32)
[2021-08-21] MEDS: CHECK fentaNYL PATCH PLACEMENT SCH ×2 (08:58→15:29)
[2021-08-21] MEDS: HYDROXYUREA 500 MG CAP PO SCH ×2 (08:58→20:15)
[2021-08-21] MEDS: PANTOprazole 40 MG TAB PO SCH ×2 (08:58→20:17)
[2021-08-21] MEDS: SENNA 8.6 MG TAB PO SCH ×2 (08:59→20:17)
[2021-08-21] MEDS: FOLIC ACID 1 MG TAB PO SCH (08:59)
[2021-08-21] MEDS: oxyCODONE HCL IR 5 MG TAB (IMMEDIATE RELEASE) PO PRN ×3 (09:26→20:18)
--- NOTE | 2021-08-21 11:05 | Hospitalist Progress Note ---
Date of Service August 21, 2021 Assessment & Plan (1) Sickle cell crisis: Plan: 21yo female well known to this resident hospitalist service, with PMH significant for sickle cell disease and chronic pain, who presented to the ER with a three-day history of severe generalized pain, nausea, and dizziness. Severe generalized pain, nausea, dizziness -Patient with sickle cell disease presenting with severe pain, nausea, and dizziness in the setting of running out of her home fentanyl patches -On admission, BP slightly soft, vitals otherwise stable -CXR without acute abnormality, oxygen saturation adequate - no evidence of acute chest syndrome -Admission labs notable for anemia to 9.1 (baseline 8-10), thrombocytosis (501), hyperbilirubinemia (4.1); hsTroponin not elevated -ED: Received NSS 1.5L, Zofran, morphine, and Dilaudid -Etiology likely multifactorial: sickle cell disease acute pain crisis +/- opioid hyperalgesia -Hyperbili supports the diagnosis of SCD acute pain crisis; pt's symptoms are unlikely to be solely due to opioid hyperalgesia, nor drug seeking -Historically, patient has the most success with discharge (i.e. avoiding readmission) if she is stable off IV opioids for 24hr prior to DC * Dilaudid 1mg IV q2h * Fentanyl patch Q3D * Zofran 4 mg IV q4h prn, Fenergen x1 dose for nausea * oxycodone 10mg po q4h prn * Can use warming packs for pain as needed;ice packs must be avoided * Continue home hydroxyurea, folic acid * Incentive spirometry q1hWA * Trend CBC Constipation -likely multifactorial from opiods and pain -did have one loose BM last night, will continue bowel regimen -cont. senakote -restart miralax 51gm bid, cont. 1/2NSS IVF Hypotension, stable -Patient with intermittent hypotension which is not uncommon for her during sickle cell acute pain episodes, in part d/t poor PO intake -Encourage PO intake, additional IVF boluses as needed Anemia, stable -Patient chronically anemic likely 2/2 sickle cell disease; typically runs between 8.0-10.0 -No signs of active bleeding -Patient occasionally requires transfusions during acute pain episodes (last transfusion 04/2021). Patient transfused 2 units packed RBCs during stay. -Hgb 7.8, cont. to monitor, trend CBC. Hyperbilirubinemia -Total bilirubin on admission 4.1, LFTs otherwise wnl; patient has a long history of hyperbilirubinemia during acute pain episodes -Suspect elevated bilirubin is secondary to increased RBC turnover rather than other etiologies -Trend daily CMP GERD -Pantoprazole 40 mg po bid -continue Zofran as above FEN: regular Code status: full VTE ppx: SCDs Dispo: med surg Admission and Anticipated Discharge Date Admission Date: August 15, 2021 Supervising Physician Co-Signing Physician Notes I personally examined the patient and verified all amaro points of history and exam, discussed case, and agree with decision making with Dr Bailey pt sleeping comfortably when i enter the room. given that she was feeling worse earlier - allowed her to sleep. vitals noted nad sleeping comfortably breathing unlabored at rest. sickle cell w acute pain crisis -I do suspect with her hemoglobin a bit lower her bilirubin a bit higher than it had been for a while, mild transaminitisshe probably does have a bit of hemolysis which probably explains some of her malaise symptoms. Continue IV fluids and pain control, add [id number] Tylenol to try to help with some of her constitutional malaise/"feeling like I should be spiking a fever" symptoms. Continue supportive care otherwise. Constipationcontinue bowel regimen Subjective Seen at bedside this morning. Had decent sleep overnight but in more pain this morning than yesterday. Did have a dilaudid and oxy dose this morning. Had a semi loose BM last night, says it relieved some of her abdominal discomfort. Review of Systems Review of Systems: All systems reviewed & are unremarkable except as noted in HPI & below Physical Exam Physical Exam: General: alert, in no acute distress. HEENT: NC/AT. Moist mucosal membranes. Neck: Supple. No lymphadenopathy. CV: RRR. Systolic murmur loudest at left upper sternal border. No gallops or rubs. No pedal edema. Respiratory: Normal respiratory effort. CTA bilaterally. No crackles, rhonchi, or wheezes. Abdomen: Soft, mild diffuse tenderness, nondistended abdomen. No guarding or rebound. Extremities: Strength and sensation intact Skin: Intact, without rashes, lesions, or erythema. Results & Data Results & Data ([facility]) Vital Signs (Past 12 Hours) Vital Signs Temp Pulse Resp BP Pulse Ox 08/21/21 07:49 36.5 C 75 16 94/53 L 96 Laboratory Results 08/21/21 08/21/21 Range/Units 06:03 06:03 WBC 4.52 L (4.8-10.8) K/uL RBC 2.33 L (4.2-5.4) M/uL Hgb 7.8 L (12.0-16.0) g/dL Hct 22.0 L (37-47) % MCV 94.4 (80-100) fL MCH 33.5 (25-34) pg MCHC 35.5 (32-36) g/dL RDW Std Deviation 69.0 H (36.4-46.3) fL RDW Coeff of [place]ando 20.3 H (11.5-14.5) % Plt Count 246 (130-400) K/uL MPV 9.5 (7.4-10.4) fL Immature Gran % (Auto) 0.4 % Neut % (Auto) 44.2 % Lymph % (Auto) 45.4 % [place] % (Auto) 7.3 % Eos % (Auto) 1.8 % Baso % (Auto) 0.9 % Neut # (Auto) 2.00 (1.4-6.5) K/uL Lymph # (Auto) 2.05 (1.2-3.4) K/uL [place] # (Auto) 0.33 (0.11-0.59) K/uL Eos # (Auto) 0.08 (0-0.5) K/uL Baso # (Auto) 0.04 (0-0.2) K/uL Immature Gran # (Auto) 0.02 (0.00-0.02) K/uL Absolute Nucleated RBC 0.25 H (0-0) K/uL Nucleated RBC % (auto) 5.6 % Anisocytosis Present Sickle Cells 1+ Target Cells 1+ Sodium 136 (136-145) mmol/L Potassium 4.1 (3.5-5.1) mmol/L Chloride 102 (98-107) mmol/L Carbon Dioxide 28 (21-32) mmol/L Anion Gap 6 (3-11) BUN 6 (6-23) mg/dl Creatinine 0.41 L (0.6-1.2) mg/dl Est Cr Clr Drug Dosing 199.5 ml/min Est GFR ( Amer) > 150.0 ml/min Est GFR (Non-Af Amer) 145.6 ml/min BUN/Creatinine Ratio 14.6 (10-20) Glucose 97 (70-99(Fasting)) mg/dl Calcium 8.8 (8.5-10.1) mg/dl Total Bilirubin 2.7 H (0.2-1.0) mg/dl AST 52 H (13-39) U/L ALT 22 (7-52) U/L Alkaline Phosphatase 52 (34-104) U/L Total Protein 6.8 (6.0-8.3) gm/dl Albumin 3.8 (3.4-5.0) gm/dl Globulin 3.0 (2.5-4.0) gm/dl Albumin/Globulin Ratio 1.3 (0.9-2) Resident Activity Tracking Resident Involvement: Resident Care Provided Care Provided: Adult [facility] Medicine
[2021-08-21] MEDS: ONDANSETRON INJ 2 MG/ML 2 ML VIAL IV PRN (14:02)
[2021-08-21] MEDS ORDERED: PROMETHAZINE HCL 12.5 MG in SODIUM CHLORIDE 0.9% 50 ML IV ONE (15:44)
--- NOTE | 2021-08-21 18:53 | Billing Data ---
Date of Service August 21, 2021 Coding Level of Care Code 70391 Subseq Hosp Care Lvl 2
[2021-08-21] MEDS: ACETAMINOPHEN 325 MG TAB PO SCH (20:17)
[2021-08-21] MEDS: POLYETHYLENE (MIRALAX) 17 GM PACK PO SCH (20:17)
[2021-08-22] MEDS: HYDROmorphone INJ 1 MG/ML SYRINGE IV PRN ×8 (02:06→22:29)
[2021-08-22] MEDS: CHECK fentaNYL PATCH PLACEMENT SCH ×3 (02:07→16:17)
[2021-08-22] MEDS: oxyCODONE HCL IR 5 MG TAB (IMMEDIATE RELEASE) PO PRN ×2 (04:48→18:25)
[2021-08-22] MEDS: SODIUM CHLOR 0.45% + 20MEQ KCL 20 MEQ/1,000 ML BAG IV SCH ×2 (04:49→14:52)
[2021-08-22 08:13] LABS: Nucleated RBC # (auto) 0.21 K/uL (0-0); Nucleated RBC % (auto) 4.4 %
[2021-08-22 08:26] LABS: Alanine Aminotransferase 21 U/L (7-52); Albumin Globulin Ratio 1.3 (0.9-2); Albumin Level 3.9 gm/dl (3.4-5.0); Alkaline Phosphatase 54 U/L (34-104); Anion Gap 4 (3-11); Aspartate Aminotransferase 51 U/L (13-39); BUN Creatinine Ratio 21.4 (10-20); Bilirubin,Total 2.8 mg/dl (0.2-1.0); Blood Urea Nitrogen 9 mg/dl (6-23); Carbon Dioxide 29 mmol/L (21-32); Chloride 102 mmol/L (98-107); Creatinine Clr Calc Pharmacy 194.8 ml/min; Est GFR (African American) > 150.0 ml/min; Est GFR (Non-African American) 144.5 ml/min; Globulin 3.1 gm/dl (2.5-4.0); Glucose 87 mg/dl (70-99(Fasting)); Sodium 135 mmol/L (136-145)
[2021-08-22 08:43] LABS: Hematocrit (blood only) 23.4 % (37-47); Hemoglobin 8.4 g/dL (12.0-16.0); Mean Corpuscular Hemoglobin 34.1 pg (25-34); Mean Corpuscular Hgb Conc 35.9 g/dL (32-36); Mean Corpuscular Volume 95.1 fL (80-100); Mean Platelet Volume 9.4 fL (7.4-10.4); Platelet Count 425 K/uL (130-400); RDW Coefficient of Variation 20.3 % (11.5-14.5); RDW Standard Deviation 69.6 fL (36.4-46.3); Red Blood Count 2.46 M/uL (4.2-5.4); White Blood Count 4.84 K/uL (4.8-10.8)
[2021-08-22] MEDS: ONDANSETRON INJ 2 MG/ML 2 ML VIAL IV PRN ×2 (08:44→22:35)
[2021-08-22] MEDS: HYDROXYUREA 500 MG CAP PO SCH ×2 (08:45→21:08)
[2021-08-22] MEDS: SENNA 8.6 MG TAB PO SCH ×2 (08:45→21:08)
[2021-08-22] MEDS: FOLIC ACID 1 MG TAB PO SCH (08:46)
[2021-08-22] MEDS: PANTOprazole 40 MG TAB PO SCH ×2 (08:46→21:08)
[2021-08-22] MEDS: ACETAMINOPHEN 325 MG TAB PO SCH ×3 (08:46→21:07)
[2021-08-22] MEDS: POLYETHYLENE (MIRALAX) 17 GM PACK PO SCH ×2 (08:47→21:09)
--- NOTE | 2021-08-22 09:19 | Hospitalist Progress Note ---
Date of Service August 22, 2021 Assessment & Plan (1) Sickle cell crisis: Plan: 21yo female well known to this resident hospitalist service, with PMH significant for sickle cell disease and chronic pain, who presented to the ER with a three-day history of severe generalized pain, nausea, and dizziness. Severe generalized pain, nausea, dizziness -Patient with sickle cell disease presenting with severe pain, nausea, and dizziness in the setting of running out of her home fentanyl patches -On admission, BP slightly soft, vitals otherwise stable -CXR without acute abnormality, oxygen saturation adequate - no evidence of acute chest syndrome -Admission labs notable for anemia to 9.1 (baseline 8-10), thrombocytosis (501), hyperbilirubinemia (4.1); hsTroponin not elevated -ED: Received NSS 1.5L, Zofran, morphine, and Dilaudid -Etiology likely multifactorial: sickle cell disease acute pain crisis +/- opioid hyperalgesia -Hyperbili supports the diagnosis of SCD acute pain crisis; pt's symptoms are unlikely to be solely due to opioid hyperalgesia, nor drug seeking -Historically, patient has the most success with discharge (i.e. avoiding readmission) if she is stable off IV opioids for 24hr prior to DC * Dilaudid 1mg IV q2h * Fentanyl patch Q3D * Zofran 4 mg IV q4h prn * Fenergen x1 dose for nausea (08/22) * Oxycodone 10mg po q4h prn * Started midorine 10mg tid as trial to aid with dizziness * Can use warming packs for pain as needed;ice packs must be avoided * Continue home hydroxyurea, folic acid * Incentive spirometry q1hWA * Trend CBC Constipation -likely multifactorial from opiods and pain -did have one loose BM last night, will continue bowel regimen -cont. senakote -cont miralax 51gm bid, cont. 1/2NSS IVF Hypotension, stable -Patient with intermittent hypotension which is not uncommon for her during sickle cell acute pain episodes, in part d/t poor PO intake -Encourage PO intake, additional IVF boluses as needed Anemia, stable -Patient chronically anemic likely 2/2 sickle cell disease; typically runs between 8.0-10.0 -No signs of active bleeding -Patient occasionally requires transfusions during acute pain episodes (last transfusion 04/2021). Patient transfused 2 units packed RBCs during stay. -Hgb 8.4, cont. to monitor, trend CBC. Hyperbilirubinemia -Total bilirubin on admission 4.1, LFTs otherwise wnl; patient has a long history of hyperbilirubinemia during acute pain episodes -Suspect elevated bilirubin is secondary to increased RBC turnover rather than other etiologies -Trend daily CMP GERD -Pantoprazole 40 mg po bid -continue Zofran as above -consider adding pepcid FEN: regular Code status: full VTE ppx: SCDs Dispo: med surg Admission and Anticipated Discharge Date Admission Date: August 15, 2021 Supervising Physician Co-Signing Physician Notes I personally examined the patient and verified all amaro points of history and exam, discussed case, and agree with decision making with Dr Bailey Lightheaded and nausea. Notes its very similar to what she was having before. Relating to short acting narcotic. Does also have some stomach pain vitals noted laying fairly flat in bed. No distress. HEENT normocephalic atraumatic mucous membranes moist. Breathing unlabored no accessory muscle use good effort. Skin shows no rashes no pallor or icterus. Neuro without focal deficits. Abdomen with some epigastric pain to palpation. sickle cell w acute pain crisis -Continue supportive care and pain control. Her new dizzy and lightheadedness to narcotics presents a difficult conundrum. Off of especially short acting narcotics she does not really seem to experience the dizzy and lightheadedness, but off of them of course her pain is worse. It seems like this is happening on a few months delay after starting medicationsnorma was tolerating Nucynta reasonably well for a few months before starting to note this symptom. In May whenever she was here we meticulously worked through multiple pain regimens until 4 days she tolerated fentanyl and oxycodone with no such symptomsbut now she is starting to have them. Given that is a lightheadedness, and given the narcotics can affect systemic vascular resistancewe discussed about a trial of vasoconstriction versus withdrawing the short acting narcotic. We decided under controlled conditions it would at least be reasonable to give trial to something like midodrine to see if it alleviates the symptomseven if neither of us feel great with this being a long-term plan as much is short-term symptom medication. Given that the alternative would be to stop the short acting narcotics altogether with an increase in pain, we decided to proceed with a trial of midodrine. We also discussed that it is possible that she has a degree of delayed onset side effect, and that cycling short acting narcotics may be of value. Constipationcontinue bowel regimen Otherwise as above Subjective Seen at bedside this morning. Had decent sleep overnight with benedryl. Pain a little better this morning but still feeling mildly nauseas with abd discomfort and dizzy especially when sitting up. Has eaten some breakfast and continued to have BM yesterday. Review of Systems Review of Systems: All systems reviewed & are unremarkable except as noted in HPI & below Physical Exam Physical Exam: General: alert, in no acute distress. HEENT: NC/AT. Moist mucosal membranes. Neck: Supple. No lymphadenopathy. CV: RRR. Systolic murmur loudest at left upper sternal border. No gallops or rubs. No pedal edema. Respiratory: Normal respiratory effort. CTA bilaterally. No crackles, rhonchi, or wheezes. Abdomen: Soft, mild diffuse tenderness, nondistended abdomen. No guarding or rebound. Extremities: Strength and sensation intact Skin: Intact, without rashes, lesions, or erythema. Results & Data Results & Data ([facility]) Vital Signs (Past 12 Hours) Vital Signs Temp Pulse Pulse Resp BP Pulse Ox 08/22/21 08:08 36.8 C 66 16 100/56 L 96 08/21/21 21:24 36.3 C L 61 18 95/61 L 97 Laboratory Results 08/22/21 08/22/21 Range/Units 07:23 07:23 WBC 4.84 (4.8-10.8) K/uL RBC 2.46 L (4.2-5.4) M/uL Hgb 8.4 L (12.0-16.0) g/dL Hct 23.4 L (37-47) % MCV 95.1 (80-100) fL MCH 34.1 H (25-34) pg MCHC 35.9 (32-36) g/dL RDW Std Deviation 69.6 H (36.4-46.3) fL RDW Coeff of Nando 20.3 H (11.5-14.5) % Plt Count 425 H D (130-400) K/uL MPV 9.4 (7.4-10.4) fL Immature Gran % (Auto) 0.4 % Neut % (Auto) 41.0 % Lymph % (Auto) 48.1 % [place] % (Auto) 7.6 % Eos % (Auto) 2.3 % Baso % (Auto) 0.6 % Neut # (Auto) 1.98 (1.4-6.5) K/uL Lymph # (Auto) 2.33 (1.2-3.4) K/uL [place] # (Auto) 0.37 (0.11-0.59) K/uL Eos # (Auto) 0.11 (0-0.5) K/uL Baso # (Auto) 0.03 (0-0.2) K/uL Immature Gran # (Auto) 0.02 (0.00-0.02) K/uL Absolute Nucleated RBC 0.21 H (0-0) K/uL Nucleated RBC % (auto) 4.4 % Anisocytosis Present Sickle Cells 1+ Target Cells 1+ Sodium 135 L (136-145) mmol/L Potassium 4.0 (3.5-5.1) mmol/L Chloride 102 (98-107) mmol/L Carbon Dioxide 29 (21-32) mmol/L Anion Gap 4 (3-11) BUN 9 (6-23) mg/dl Creatinine 0.42 L (0.6-1.2) mg/dl Est Cr Clr Drug Dosing 194.8 ml/min Est GFR ( Amer) > 150.0 ml/min Est GFR (Non-Af Amer) 144.5 ml/min BUN/Creatinine Ratio 21.4 H (10-20) Glucose 87 (70-99(Fasting)) mg/dl Calcium 9.0 (8.5-10.1) mg/dl Total Bilirubin 2.8 H (0.2-1.0) mg/dl AST 51 H (13-39) U/L ALT 21 (7-52) U/L Alkaline Phosphatase 54 (34-104) U/L Total Protein 7.0 (6.0-8.3) gm/dl Albumin 3.9 (3.4-5.0) gm/dl Globulin 3.1 (2.5-4.0) gm/dl Albumin/Globulin Ratio 1.3 (0.9-2) Resident Activity Tracking Resident Involvement: Resident Care Provided Care Provided: [facility] Medicine
[2021-08-22 09:21] LABS: Anisocytosis Present; Basophils # (auto) 0.03 K/uL (0-0.2); Basophils % (auto) 0.6 %; Eosinophils # (auto) 0.11 K/uL (0-0.5); Eosinophils % (auto) 2.3 %; Immature Granulocytes # (auto) 0.02 K/uL (0.00-0.02); Immature Granulocytes % (auto) 0.4 %; Lymphocytes # (auto) 2.33 K/uL (1.2-3.4); Lymphocytes % (auto) 48.1 %; Monocytes # (auto) 0.37 K/uL (0.11-0.59); Monocytes % (auto) 7.6 %; Neutrophils # (auto) 1.98 K/uL (1.4-6.5); Sickle Cells 1+; Target Cells 1+
[2021-08-22] MEDS: MIDODRINE HCL 10 MG TAB PO SCH ×2 (14:07→21:08)
[2021-08-22] MEDS: diphenhydrAMINE Capsule 25 MG CAP PO PRN (16:14)
--- NOTE | 2021-08-22 18:59 | Billing Data ---
Date of Service August 22, 2021 Coding Level of Care Code 79055 Subseq Hosp Care Lvl 3
[2021-08-23] MEDS: HYDROmorphone INJ 1 MG/ML SYRINGE IV PRN ×7 (00:50→15:35)
[2021-08-23] MEDS: CHECK fentaNYL PATCH PLACEMENT SCH ×4 (00:50→23:07)
[2021-08-23] MEDS: SODIUM CHLOR 0.45% + 20MEQ KCL 20 MEQ/1,000 ML BAG IV SCH ×3 (00:51→20:09)
[2021-08-23] MEDS: ACETAMINOPHEN 325 MG TAB PO SCH ×3 (08:37→20:07)
[2021-08-23] MEDS: FOLIC ACID 1 MG TAB PO SCH (08:37)
[2021-08-23] MEDS: HYDROXYUREA 500 MG CAP PO SCH ×2 (08:38→20:09)
[2021-08-23] MEDS: SENNA 8.6 MG TAB PO SCH ×2 (08:39→20:08)
[2021-08-23] MEDS: PANTOprazole 40 MG TAB PO SCH ×2 (08:39→20:08)
[2021-08-23] MEDS: MIDODRINE HCL 10 MG TAB PO SCH ×2 (08:39→15:34)
[2021-08-23] MEDS: POLYETHYLENE (MIRALAX) 17 GM PACK PO SCH ×2 (08:40→20:05)
[2021-08-23] MEDS: fentaNYL 12 MCG/HR TDSY TD SCH (08:53)
[2021-08-23 09:12] LABS: Hematocrit (blood only) 22.2 % (34.1-44.9); Hemoglobin 7.9 g/dl (12.0-16.0); Mean Corpuscular Hemoglobin 33.3 pg (25.0-34.0); Mean Corpuscular Hgb Conc 35.6 g/dL (32.0-36.0); Mean Corpuscular Volume 93.7 fL (80.0-100.0); Mean Platelet Volume 9.8 fL (9.4-12.3); Nucleated RBC % (auto) 3.2 %; Platelet Count 387 K/uL (130-400); RDW Coefficient of Variation 18.9 % (11.5-14.5); RDW Standard Deviation 64.8 fL (36.4-46.3); Red Blood Count 2.37 M/uL (3.93-5.22); White Blood Count 6.29 K/ul (4.8-10.8)
[2021-08-23 09:38] LABS: Alanine Aminotransferase 23 U/L (7-52); Albumin Globulin Ratio 1.2 (0.9-2); Albumin Level 3.9 gm/dl (3.4-5.0); Alkaline Phosphatase 47 U/L (34-104); Anion Gap 7 (3-11); Aspartate Aminotransferase 52 U/L (13-39); BUN Creatinine Ratio 19.6 (10-20); Bilirubin,Total 2.6 mg/dl (0.2-1.0); Blood Urea Nitrogen 9 mg/dl (6-23); Calcium 9.2 mg/dl (8.5-10.1); Carbon Dioxide 28 mmol/L (21-32); Chloride 101 mmol/L (98-107); Creatinine Clr Calc Pharmacy 177.8 ml/min; Est GFR (African American) > 150.0 ml/min; Est GFR (Non-African American) 140.2 ml/min; Globulin 3.3 gm/dl (2.5-4.0); Glucose 95 mg/dl (70-99(Fasting)); Sodium 136 mmol/L (136-145); Total Protein 7.2 gm/dl (6.0-8.3)
[2021-08-23 09:52] LABS: Basophils # (auto) 0.03 K/uL (0-0.2); Basophils % (auto) 0.5 %; Eosinophils # (auto) 0.15 K/uL (0-0.50); Eosinophils % (auto) 2.4 %; Immature Granulocytes # (auto) 0.02 K/uL (0.00-0.02); Immature Granulocytes % (auto) 0.3 %; Lymphocytes # (auto) 2.34 K/uL (1.2-3.4); Lymphocytes % (auto) 37.2 %; Monocytes # (auto) 0.24 K/uL (0.24-0.82); Monocytes % (auto) 3.8 %; Neutrophils # (auto) 3.51 K/uL (1.4-6.5); Neutrophils % (auto) 55.8 %
[2021-08-23 09:53] LABS: Polychromasia 1+; Sickle Cells 2+; Target Cells 1+
--- NOTE | 2021-08-23 11:56 | Hospitalist Progress Note ---
Date of Service August 23, 2021 Assessment & Plan (1) Sickle cell crisis: Plan: 21yo female well known to this resident hospitalist service, with PMH significant for sickle cell disease and chronic pain, who presented to the ER with a three-day history of severe generalized pain, nausea, and dizziness. Severe generalized pain, nausea, dizziness -Patient with sickle cell disease presenting with severe pain, nausea, and dizziness in the setting of running out of her home fentanyl patches -On admission, BP slightly soft, vitals otherwise stable -CXR without acute abnormality, oxygen saturation adequate - no evidence of acute chest syndrome -Admission labs notable for anemia to 9.1 (baseline 8-10), thrombocytosis (501), hyperbilirubinemia (4.1); hsTroponin not elevated -ED: Received NSS 1.5L, Zofran, morphine, and Dilaudid -Etiology likely multifactorial: sickle cell disease acute pain crisis +/- opioid hyperalgesia -Hyperbili supports the diagnosis of SCD acute pain crisis; pt's symptoms are unlikely to be solely due to opioid hyperalgesia, nor drug seeking -Historically, patient has the most success with discharge (i.e. avoiding readmission) if she is stable off IV opioids for 24hr prior to DC * cont. Fentanyl patch 12.5mg Q3D * (08/23) d/c'd dilaudid 1mg IV q2h and oxycodone 10mg po q4h prn due to ongoing nausea/dizziness * will attempt pain/symptom control with addition of morphine --> 15mg po morphine IR q4h prn, 6mg IV morphine q4h prn * cont. Zofran 4 mg IV q4h prn * (08/23) d/c'd midorine 10mg tid, did not help with dizziness * Can use warming packs for pain as needed;ice packs must be avoided * Cont. home hydroxyurea, folic acid * Incentive spirometry q1hWA * Trend CBC Constipation -likely multifactorial from opiods and pain -did have recent loose BM, will continue bowel regimen -cont. senakote, miralax 51gm bid -cont. 1/2NSS IVF Hypotension, stable -Patient with intermittent hypotension which is not uncommon for her during sickle cell acute pain episodes, in part d/t poor PO intake -Encourage PO intake, additional IVF boluses as needed Anemia, stable -Patient chronically anemic likely 2/2 sickle cell disease; typically runs between 8.0-10.0 -No signs of active bleeding -Patient occasionally requires transfusions during acute pain episodes (last transfusion 04/2021). Patient transfused 2 units packed RBCs during stay. -Hgb 7.9, cont. to monitor, trend CBC. Hyperbilirubinemia -Total bilirubin on admission 4.1, LFTs otherwise wnl; patient has a long history of hyperbilirubinemia during acute pain episodes -Suspect elevated bilirubin is secondary to increased RBC turnover rather than other etiologies -Trend daily CMP GERD -cont. pantoprazole 40 mg po bid -cont. Zofran as above -as adjunct started famotidine 20mg po qam FEN: regular Code status: full VTE ppx: SCDs Dispo: med surg Admission and Anticipated Discharge Date Admission Date: August 15, 2021 Supervising Physician Co-Signing Physician Notes I personally examined the patient and verified all amaro points of history and exam, discussed case, and agree with decision making with Dr Bailey Lightheaded and nausea persist. Absolutely no change with midodrine. Pain doing reasonably. In extensive discussions about possible [id number], she really relates it to the short acting narcoticsoxycodone at home, probably Dilaudid here. She wonders what we can do next. We discussed about the possibility this could relate to any short acting narcotics versus after she been on something for a while that she developed some type of toxic metabolites/etc. We will try to doing further into the topic academically, in the meantime will change out from Dilaudid and oxycodone to purely morphine based productsdiscussed moving to [place] as being even further away chemically from what she is on right now, but given that she had dizziness with the [place] only a few months ago she is understandably reticent to try that again yet, even though intellectually she understands the idea that cycling might be of benefit. vitals noted laying fairly flat in bed. No distress. HEENT normocephalic atraumatic mucous membranes moist. Breathing unlabored no accessory muscle use good effort. Skin shows no rashes no pallor or icterus. Neuro without focal deficits. Abdomen with some epigastric pain to palpation. sickle cell w acute pain crisis -Continue supportive care and pain control. Her new dizzy and lightheadedness to narcotics presents a difficult conundrum. See above. We will switch to MS IR p.o. first-line for breakthrough pain, morphine 6 mg IV as needed severe/breakthrough/pain refractory to the p.o. medication. We will continue to research and consider other options. Constipationcontinue bowel regimen Otherwise as above Subjective Seen at bedside this morning. Dizziness and nausea persisted yesterday into this morning despite use of midodrine. She stopped taking her oral oxycodone late last night. Pain seems mildly improved compared to yesterday. Still having vague mild abdominal pain but no worse than previous. Review of Systems Review of Systems: All systems reviewed & are unremarkable except as noted in HPI & below Physical Exam Physical Exam: General: alert, in no acute distress. HEENT: NC/AT. Moist mucosal membranes. Neck: Supple. No lymphadenopathy. CV: RRR. Systolic murmur loudest at left upper sternal border. No gallops or rubs. No pedal edema. Respiratory: Normal respiratory effort. CTA bilaterally. No crackles, rhonchi, or wheezes. Abdomen: Soft, mild diffuse tenderness, nondistended abdomen. No guarding or rebound. Extremities: Strength and sensation intact Skin: Intact, without rashes, lesions, or erythema. Results & Data Results & Data ([facility]) Vital Signs (Past 12 Hours) Vital Signs Temp Pulse Resp BP Pulse Ox 08/23/21 06:51 104/66 08/23/21 05:46 36.8 C 65 15 89/54 L 94 Laboratory Results 08/23/21 08/23/21 Range/Units 08:52 08:52 WBC 6.29 (4.8-10.8) K/ul RBC 2.37 L (3.93-5.22) M/uL Hgb 7.9 L (12.0-16.0) g/dl Hct 22.2 L (34.1-44.9) % MCV 93.7 (80.0-100.0) fL MCH 33.3 (25.0-34.0) pg MCHC 35.6 (32.0-36.0) g/dL RDW Std Deviation 64.8 H (36.4-46.3) fL RDW Coeff of Nando 18.9 H (11.5-14.5) % Plt Count 387 (130-400) K/uL MPV 9.8 (9.4-12.3) fL Immature Gran % (Auto) 0.3 % Neut % (Auto) 55.8 % Lymph % (Auto) 37.2 % [place] % (Auto) 3.8 % Eos % (Auto) 2.4 % Baso % (Auto) 0.5 % Neut # (Auto) 3.51 (1.4-6.5) K/uL Lymph # (Auto) 2.34 (1.2-3.4) K/uL [place] # (Auto) 0.24 (0.24-0.82) K/uL Eos # (Auto) 0.15 (0-0.50) K/uL Baso # (Auto) 0.03 (0-0.2) K/uL Immature Gran # (Auto) 0.02 (0.00-0.02) K/uL Absolute Nucleated RBC 0.20 H (0-0) K/uL Nucleated RBC % (auto) 3.2 % Polychromasia 1+ Sickle Cells 2+ Target Cells 1+ Sodium 136 (136-145) mmol/L Potassium 4.0 (3.5-5.1) mmol/L Chloride 101 (98-107) mmol/L Carbon Dioxide 28 (21-32) mmol/L Anion Gap 7 (3-11) BUN 9 (6-23) mg/dl Creatinine 0.46 L (0.6-1.2) mg/dl Est Cr Clr Drug Dosing 177.8 ml/min Est GFR ( Amer) > 150.0 ml/min Est GFR (Non-Af Amer) 140.2 ml/min BUN/Creatinine Ratio 19.6 (10-20) Glucose 95 (70-99(Fasting)) mg/dl Calcium 9.2 (8.5-10.1) mg/dl Total Bilirubin 2.6 H (0.2-1.0) mg/dl AST 52 H (13-39) U/L ALT 23 (7-52) U/L Alkaline Phosphatase 47 (34-104) U/L Total Protein 7.2 (6.0-8.3) gm/dl Albumin 3.9 (3.4-5.0) gm/dl Globulin 3.3 (2.5-4.0) gm/dl Albumin/Globulin Ratio 1.2 (0.9-2) Resident Activity Tracking Resident Involvement: Resident Care Provided Care Provided: Adult [facility] Medicine
[2021-08-23] MEDS: ONDANSETRON INJ 2 MG/ML 2 ML VIAL IV PRN ×2 (13:27→23:06)
[2021-08-23] MEDS: FAMOTIDINE 20 MG TAB PO SCH (17:57)
[2021-08-23] MEDS: MoRPHine SULFATE 10 MG/ML CARP/VIAL IV PRN (17:57)
--- NOTE | 2021-08-23 18:18 | Billing Data ---
Date of Service August 23, 2021 Coding Level of Care Code 35358 Subseq Hosp Care Lvl 3
[2021-08-23] MEDS: MoRPHine SULFATE IR 15 MG TAB (IMMEDIATE RELEASE) PO PRN (21:56)
[2021-08-23] MEDS: diphenhydrAMINE Capsule 25 MG CAP PO PRN (23:06)
[2021-08-24] MEDS: MoRPHine SULFATE IR 15 MG TAB (IMMEDIATE RELEASE) PO PRN ×3 (05:42→16:39)
--- NOTE | 2021-08-24 08:26 | Hospitalist Progress Note ---
Date of Service August 24, 2021 Assessment & Plan (1) Sickle cell crisis: Plan: 21yo female well known to this resident hospitalist service, with PMH significant for sickle cell disease and chronic pain, who presented to the ER with a three-day history of severe generalized pain, nausea, and dizziness. Severe generalized pain, nausea, dizziness -Patient with sickle cell disease presenting with severe pain, nausea, and dizziness in the setting of running out of her home fentanyl patches -On admission, BP slightly soft, vitals otherwise stable -CXR without acute abnormality, oxygen saturation adequate - no evidence of acute chest syndrome -Admission labs notable for anemia to 9.1 (baseline 8-10), thrombocytosis (501), hyperbilirubinemia (4.1); hsTroponin not elevated -ED: Received NSS 1.5L, Zofran, morphine, and Dilaudid -Etiology likely multifactorial: sickle cell disease acute pain crisis +/- opioid hyperalgesia -Hyperbili supports the diagnosis of SCD acute pain crisis; pt's symptoms are unlikely to be solely due to opioid hyperalgesia, nor drug seeking -Historically, patient has the most success with discharge (i.e. avoiding readmission) if she is stable off IV opioids for 24hr prior to DC * cont. Fentanyl patch 12.5mg Q3D * cont. pain/symptom control with addition of morphine --> 15mg po morphine IR q4h prn, 6mg IV morphine q4h prn * cont. Zofran 4 mg IV q4h prn * (08/23) d/c'd dilaudid 1mg IV q2h and oxycodone 10mg po q4h prn due to ongoing nausea/dizziness * (08/23) d/c'd midorine 10mg tid, did not help with dizziness * Can use warming packs for pain as needed;ice packs must be avoided * Cont. home hydroxyurea, folic acid * Incentive spirometry q1hWA * Trend CBC Constipation -likely multifactorial from opiods and pain -did have recent loose BM, will continue bowel regimen -cont. senakote, miralax 51gm bid -cont. 1/2NSS IVF Hypotension, stable -Patient with intermittent hypotension which is not uncommon for her during sickle cell acute pain episodes, in part d/t poor PO intake -Encourage PO intake, additional IVF boluses as needed Anemia, stable -Patient chronically anemic likely 2/2 sickle cell disease; typically runs between 8.0-10.0 -No signs of active bleeding -Patient occasionally requires transfusions during acute pain episodes (last transfusion 04/2021). Patient transfused 2 units packed RBCs during stay. -Hgb 7.9, cont. to monitor, trend CBC. Hyperbilirubinemia -Total bilirubin on admission 4.1, LFTs otherwise wnl; patient has a long history of hyperbilirubinemia during acute pain episodes; tbili 2.6 (08/24) -Suspect elevated bilirubin is secondary to increased RBC turnover rather than other etiologies -Trend daily CMP GERD -cont. pantoprazole 40 mg po bid -cont. Zofran as above -cont. famotidine 20mg po qam which has helped with nausea/abd discomfort FEN: regular Code status: full VTE ppx: SCDs Dispo: med surg Admission and Anticipated Discharge Date Admission Date: August 15, 2021 Subjective Seen at bedside this morning. Dizziness present but much improved since yesterday. Nausea improved as well. Her pain persists but says was not given IV morphine for breakthrough yesterday. States that if her dizziness maintains at this level, she may consider discharge soon. Review of Systems Review of Systems: All systems reviewed & are unremarkable except as noted in HPI & below Physical Exam Physical Exam: General: alert, in no acute distress. HEENT: NCAT. Moist mucosal membranes. Neck: Supple. No lymphadenopathy. CV: RRR. Systolic murmur loudest at left upper sternal border. No gallops or rubs. No pedal edema. Respiratory: Normal respiratory effort. CTA bilaterally. No crackles, rhonchi, or wheezes. Abdomen: Soft, mild diffuse tenderness, nondistended abdomen. No guarding. Extremities: Strength and sensation intact Skin: Intact, without rashes, lesions, or erythema. Results & Data Results & Data ([facility]) Vital Signs (Past 12 Hours) Vital Signs Temp Pulse Resp BP BP Pulse Ox 08/24/21 07:31 36.6 C 66 16 87/51 L 95 08/23/21 21:47 36.9 C 64 16 104/65 97
[2021-08-24] MEDS: SODIUM CHLOR 0.45% + 20MEQ KCL 20 MEQ/1,000 ML BAG IV SCH ×2 (09:11→18:46)
[2021-08-24] MEDS: CHECK fentaNYL PATCH PLACEMENT SCH ×2 (09:11→15:22)
[2021-08-24] MEDS: ACETAMINOPHEN 325 MG TAB PO SCH ×2 (09:12→13:47)
[2021-08-24] MEDS: HYDROXYUREA 500 MG CAP PO SCH (09:12)
[2021-08-24] MEDS: FAMOTIDINE 20 MG TAB PO SCH (09:12)
[2021-08-24] MEDS: FOLIC ACID 1 MG TAB PO SCH (09:12)
[2021-08-24] MEDS: SENNA 8.6 MG TAB PO SCH (09:13)
[2021-08-24] MEDS: PANTOprazole 40 MG TAB PO SCH (09:13)
[2021-08-24] MEDS: POLYETHYLENE (MIRALAX) 17 GM PACK PO SCH (09:14)
[2021-08-24] MEDS: ONDANSETRON INJ 2 MG/ML 2 ML VIAL IV PRN (10:26)
[2021-08-24] MEDS: MoRPHine SULFATE 10 MG/ML CARP/VIAL IV PRN ×2 (11:47→17:41)
[2021-08-24 14:38] LABS: Alanine Aminotransferase 23 U/L (7-52); Albumin Globulin Ratio 1.3 (0.9-2); Albumin Level 4.1 gm/dl (3.4-5.0); Alkaline Phosphatase 52 U/L (34-104); Anion Gap 7 (3-11); Aspartate Aminotransferase 49 U/L (13-39); Blood Urea Nitrogen 6 mg/dl (6-23); Calcium 9.2 mg/dl (8.5-10.1); Carbon Dioxide 26 mmol/L (21-32); Chloride 102 mmol/L (98-107); Creatinine Clr Calc Pharmacy 163.6 ml/min; Est GFR (African American) > 150.0 ml/min; Est GFR (Non-African American) 136.4 ml/min; Globulin 3.2 gm/dl (2.5-4.0); Glucose 141 mg/dl (70-99(Fasting)); Potassium 3.7 mmol/L (3.5-5.1); Sodium 135 mmol/L (136-145); Total Protein 7.3 gm/dl (6.0-8.3)
[2021-08-24 14:49] VITALS: BP 104/66; PULSE 80; TEMP 98.1; O2SAT 93
[2021-08-24 15:37] LABS: Hemoglobin 8.1 g/dl (12.0-16.0); Mean Corpuscular Hemoglobin 34.2 pg (25.0-34.0); Mean Corpuscular Hgb Conc 36.8 g/dL (32.0-36.0); Mean Corpuscular Volume 92.8 fL (80.0-100.0); Mean Platelet Volume 11.2 fL (9.4-12.3); Nucleated RBC # (auto) 0.15 K/uL (0-0); Nucleated RBC % (auto) 2.3 %; Platelet Count 326 K/uL (130-400); RDW Coefficient of Variation 18.8 % (11.5-14.5); RDW Standard Deviation 61.4 fL (36.4-46.3); Red Blood Count 2.37 M/uL (3.93-5.22); White Blood Count 6.65 K/ul (4.8-10.8)
[2021-08-24 16:05] LABS: Anisocytosis Present; Macrocytosis Present; Polychromasia 1+; Sickle Cells 1+; Target Cells 1+; Tear Drop Cells 1+
[2021-08-24 16:16] LABS: Basophils # (auto) 0.05 K/uL (0-0.2); Basophils % (auto) 0.8 %; Eosinophils # (auto) 0.12 K/uL (0-0.50); Eosinophils % (auto) 1.8 %; Immature Granulocytes # (auto) 0.04 K/uL (0.00-0.02); Immature Granulocytes % (auto) 0.6 %; Lymphocytes # (auto) 1.99 K/uL (1.2-3.4); Lymphocytes % (auto) 29.9 %; Monocytes # (auto) 0.19 K/uL (0.24-0.82); Monocytes % (auto) 2.9 %; Neutrophils # (auto) 4.26 K/uL (1.4-6.5)
--- NOTE | 2021-08-24 17:37 | Discharge Summary ---
Date of Service August 24, 2021 Admission HPI Per Admitting Provider Donta Early (Tomi) is a 20yo female well known to this resident hospitalist service, with PMH significant for sickle cell disease and chronic pain, who presented to the ER with a three-day history of severe generalized pain, nausea, and dizziness. Patient notes her symptoms feel similar to previous sickle cell acute pain episodes. Patient's sickle cell pain has been well- controlled over the past few months with fentanyl patches. Patient removed her last patch on 08/10 (three days ago) and unfortunately was having difficulty contacting her PCP for a renewed prescription, and thus was without pain control. This coincided with the onset of her presenting symptoms. Patient denies fever, chills, palpitations, SOB, vomiting, diarrhea, dysuria, numbness, tingling, weakness, or other symptoms. No recent travel or sick contacts. Principal Diagnosis acute pain crisis 2/ sickle cell disease Discharge Exam General: alert, in no acute distress. HEENT: NC/AT. Moist mucosal membranes. Neck: Supple. No lymphadenopathy. CV: RRR. Systolic murmur loudest at left upper sternal border. No gallops or rubs. No pedal edema. Respiratory: Normal respiratory effort. CTA bilaterally. No crackles, rhonchi, or wheezes. Abdomen: Soft, mild diffuse tenderness, nondistended abdomen. No guarding or rebound. Extremities: Strength and sensation intact Skin: Intact, without rashes, lesions, or erythema. Discharge Data Allergies Allergy/AdvReac Type Severity Reaction Status Date / Time ekg electrodes Allergy Intermediate Blister Uncoded 08/13/21 22:04 Consultations 08/13/21 21:47 ED Decision to Admit Stat 08/15/21 12:46 Consult Orthopedic Surgery Routine Ordered Studies Laboratory Results WBC 6.65 K/ul (4.8-10.8) 08/24/21 13:59 RBC 2.37 M/uL (3.93-5.22) L 08/24/21 13:59 Hgb 8.1 g/dl (12.0-16.0) L 08/24/21 13:59 Hct 22.0 % (34.1-44.9) L 08/24/21 13:59 MCV 92.8 fL (80.0-100.0) 08/24/21 13:59 MCH 34.2 pg (25.0-34.0) H 08/24/21 13:59 MCHC 36.8 g/dL (32.0-36.0) H 08/24/21 13:59 RDW Std Deviation 61.4 fL (36.4-46.3) H 08/24/21 13:59 RDW Coeff of Nando 18.8 % (11.5-14.5) H 08/24/21 13:59 Plt Count 326 K/uL (130-400) 08/24/21 13:59 MPV 11.2 fL (9.4-12.3) 08/24/21 13:59 Immature Gran % (Auto) 0.6 % 08/24/21 13:59 Neut % (Auto) 64.0 % 08/24/21 13:59 Lymph % (Auto) 29.9 % 08/24/21 13:59 Gonzales % (Auto) 2.9 % 08/24/21 13:59 Eos % (Auto) 1.8 % 08/24/21 13:59 Baso % (Auto) 0.8 % 08/24/21 13:59 Reticulocyte % (Auto) 13.1 % (0.5-2.0) H 08/13/21 19:20 Neut # (Auto) 4.26 K/uL (1.4-6.5) 08/24/21 13:59 Lymph # (Auto) 1.99 K/uL (1.2-3.4) 08/24/21 13:59 Gonzales # (Auto) 0.19 K/uL (0.24-0.82) L 08/24/21 13:59 Eos # (Auto) 0.12 K/uL (0-0.50) 08/24/21 13:59 Baso # (Auto) 0.05 K/uL (0-0.2) 08/24/21 13:59 Reticulocyte # 0.34 10^6/uL (0.02-0.10) H 08/13/21 19:20 Immature Gran # (Auto) 0.04 K/uL (0.00-0.02) H 08/24/21 13:59 Absolute Nucleated RBC 0.15 K/uL (0-0) H 08/24/21 13:59 Nucleated RBC % (auto) 2.3 % 08/24/21 13:59 Hypersegmented Neuts 1+ 08/24/21 13:59 Platelet Estimate Increased (Normal) H 08/16/21 06:24 Polychromasia 1+ 08/24/21 13:59 Anisocytosis Present 08/24/21 13:59 Macrocytosis Present 08/24/21 13:59 Spherocytes 1+ 08/17/21 08:09 Sickle Cells 1+ 08/24/21 13:59 Target Cells 1+ 08/24/21 13:59 Ovalocytes 1+ 08/20/21 09:00 Tear Drop Cells 1+ 08/24/21 13:59 [place] Bodies 1+ 08/19/21 09:28 PT 11.4 Seconds (9.0-12.0) 08/16/21 06:24 INR 1.1 (0.9-1.1) 08/16/21 06:24 Sodium 135 mmol/L (136-145) L 08/24/21 13:59 Potassium 3.7 mmol/L (3.5-5.1) 08/24/21 13:59 Chloride 102 mmol/L (98-107) 08/24/21 13:59 Carbon Dioxide 26 mmol/L (21-32) 08/24/21 13:59 Anion Gap 7 (3-11) 08/24/21 13:59 BUN 6 mg/dl (6-23) 08/24/21 13:59 Creatinine 0.50 mg/dl (0.6-1.2) L 08/24/21 13:59 Est Cr Clr Drug Dosing 163.6 ml/min 08/24/21 13:59 Est GFR ( Amer) > 150.0 ml/min 08/24/21 13:59 Est GFR (Non-Af Amer) 136.4 ml/min 08/24/21 13:59 BUN/Creatinine Ratio 12.0 (10-20) 08/24/21 13:59 Glucose 141 mg/dl (70-99(Fasting)) H 08/24/21 13:59 Calcium 9.2 mg/dl (8.5-10.1) 08/24/21 13:59 Magnesium 1.8 mg/dl (1.7-2.4) 08/13/21 19:20 Total Bilirubin 3.0 mg/dl (0.2-1.0) H 08/24/21 13:59 AST 49 U/L (13-39) H 08/24/21 13:59 ALT 23 U/L (7-52) 08/24/21 13:59 Alkaline Phosphatase 52 U/L (34-104) 08/24/21 13:59 Troponin I High Sens 6.6 pg/ml (0-14) 08/13/21 19:20 Total Protein 7.3 gm/dl (6.0-8.3) 08/24/21 13:59 Albumin 4.1 gm/dl (3.4-5.0) 08/24/21 13:59 Globulin 3.2 gm/dl (2.5-4.0) 08/24/21 13:59 Albumin/Globulin Ratio 1.3 (0.9-2) 08/24/21 13:59 TSH 1.577 uIu/ml (0.300-4.500) 08/13/21 19:20 SARS-CoV-2, RNA, NAAT NEGATIVE (NEGATIVE) 08/13/21 21:02 Blood Type B Positive 08/13/21 23:54 Antibody Screen NEGATIVE 08/13/21 23:54 Crossmatch See Detail 08/13/21 23:54 Impressions Chest X-Ray 08/13/21 19:15 SINGLE VIEW CHEST CLINICAL HISTORY: Atypical chest pain FINDINGS: An AP, portable, upright chest radiograph is compared to study dated 06/15/2021. The cardiomediastinal silhouette is unremarkable. The lungs and pleural spaces are clear. No pneumothorax is seen. The bony thorax is grossly intact. IMPRESSION: No active disease in the chest. ACT 112: Negative or not required by law. Electronically signed by: Richard Mcmahon M.D. 08/13/2021 7:27 PM Hip/Pelvis X-Ray 08/15/21 10:15 SINGLE VIEW PELVIS; 2 VIEWS RIGHT HIP; 2 VIEWS LEFT HIP CLINICAL HISTORY: Avascular necrosis. Sickle cell disease. FINDINGS: An AP view of the pelvis with AP and frog-leg views of the right and left hip is correlated with KUB dated 05/29/2021. Correlation is made with pelvic CT dated 10/31/2020. The skeletal structures are well mineralized. No acute fracture is seen. There is evidence of avascular necrosis of the left femoral head with diffuse sclerotic change, subchondral cyst formation, and cortical collapse. There is spurring along the femoral head. The left acetabulum is normal. There is mild sclerosis of the right femoral head and the intertrochanteric right femur which may also represent changes of avascular necrosis/bone infarct. Sclerotic change is seen in the right sacrum. The sac roiliac joints are maintained. There is minimal degenerative sclerosis of the pubic symphysis. The overlying soft tissues are within normal limits. Phleboliths are seen in the pelvis. IMPRESSION: 1. Findings of avascular necrosis involving the left femoral head as above with cortical collapse as above. 2. 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 This is better assessed on the 10/31/[address] 3. Sclerotic change is noted in the right sacrum. Electronically signed by: Richard Mcmahon M.D. 08/15/2021 1:21 PM Hospital Course (1) Sickle cell crisis: 21yo female well known to this resident hospitalist service, with PMH significant for sickle cell disease and chronic pain, who presented to the ER with a three-day history of severe generalized pain, nausea, and dizziness. Severe generalized pain, nausea, dizziness -Patient with sickle cell disease presenting with severe pain, nausea, and dizziness in the setting of running out of her home fentanyl patches -On admission, BP slightly soft, vitals otherwise stable -CXR without acute abnormality, oxygen saturation adequate - no evidence of acute chest syndrome -Admission labs notable for anemia to 9.1 (baseline 8-10), thrombocytosis (501), hyperbilirubinemia (4.1); hsTroponin not elevated -ED: Received NSS 1.5L, Zofran, morphine, and Dilaudid -Etiology likely multifactorial: sickle cell disease acute pain crisis +/- opi oid hyperalgesia -Hyperbili supports the diagnosis of SCD acute pain crisis; pt's symptoms are unlikely to be solely due to opioid hyperalgesia, nor drug seeking -Historically, patient has the most success with discharge (i.e. avoiding readmission) if she is stable off IV opioids for 24hr prior to DC * Fentanyl patch 12.5mg Q3D * pain/symptom control with addition of morphine --> 15mg po morphine IR q4h prn, 6mg IV morphine q4h prn * Zofran 4 mg IV q4h prn * (08/23) d/c'd dilaudid 1mg IV q2h and oxycodone 10mg po q4h prn due to ongoing nausea/dizziness * (08/23) d/c'd midorine 10mg tid, did not help with dizziness * Can use warming packs for pain as needed;ice packs must be avoided * Cont. home hydroxyurea, folic acid * Incentive spirometry q1hWA -Discharge outpatient regimen: -Fentanyl patch 12.5mg q3days -Morphine IR 15mg po qid prn for breakthrough Constipation -likely multifactorial from opiods and pain -did have recent loose BM, will continue bowel regimen -cont. home miralax Hypotension, stable -Patient with intermittent hypotension which is not uncommon for her during sickle cell acute pain episodes, in part d/t poor PO intake -Encourage PO intake Anemia, stable -Patient chronically anemic likely 2/2 sickle cell disease; typically runs between 8.0-10.0 -No signs of active bleeding -Patient occasionally requires transfusions during acute pain episodes (last transfusion 04/2021). Patient transfused 2 units packed RBCs early during stay. -Hgb 8.1 on discharge Hyperbilirubinemia -Total bilirubin on admission 4.1, LFTs otherwise wnl; patient has a long history of hyperbilirubinemia during acute pain episodes; tbili 2.6 (08/24) -Suspect elevated bilirubin is secondary to increased RBC turnover rather than other etiologies GERD -cont. Zofran as above -consider PPI and/or pepcid in outpatient setting for stomach upset Total Time Total Time Spent Total Time Spent (In Minutes): 30 Discharge Plan Discharge Items Patient Disposition: Home - Self-Care Reason For Visit: ACUTE PAIN EPISODE DUE TO SICKLE CELL DISEASE Discharge Diagnosis: acute pain due to sickle cell disease Condition on Discharge: Fair Activity: Resume your previous activity Non-emergency contact: Primary Care Provider Call non-emergency contact if: you have any medication questions Follow-up/Referrals: Jhoan German MD [Resident] - PCP,NO [Primary Care Provider] - Diet: Regular Addtl Attending Provider Instructions: You were admitted to the hospital acute pain episode secondary to your underlying sickle cell disease. Initially at home you have been on a 12.5 mg fentanyl patch with oxycodone as breakthrough pain. Here in the hospital we attempted a similar regimen as well has trialed other medications including midodrine which did not seem to help much with your dizziness. Ports last couple of days and her hospital stay we decided to discontinue the oxycodone and replace it with 15 mg morphine oral which did seem to help with your dizziness and nausea and somewhat control your pain. As you know this will be an ongoing process, you should plan to schedule a follow-up appointment with Dr. German in the next week to make sure your pain is in check. Going forward we will either try to stick with this current regimen or consider cycling different short acting opioids every couple of jordyn hs to avoid opioid hyperalgesia and dizziness. New Medications: -15mg Morphine IR po qid as needed --> this med will be used for breakthrough pain in adjunct with your fentanyl patch -4mg Ondansetron (zofran) q8h as needed --> can be used acutely for nausea Pending Studies at Discharge: No Stand-Alone Forms: My [facility] [employer], Smoking Cessation Medications and DC Order Prescriptions: New morphine 15 mg tablet 15 mg PO Q8H PRN (Reason: pain) Qty: 90 RF: 0 ondansetron HCl 4 mg tablet 4 mg PO Q8 PRN (Reason: nausea and vomiting) Qty: 15 RF: 0 Continued polyethylene glycol 3350 17 gram/dose powder 17 g PO DAILY PRN (Reason: Constipation) RF: 0 cholecalciferol (vitamin D3) [Vitamin D3] 25 mcg (1,000 unit) Tablet 25 mcg PO DAILY RF: 0 hydroxyurea 500 mg capsule 1,000 mg PO BID RF: 0 folic acid 1 mg Tablet 2 mg PO DAILY RF: 0 fentanyl 12 mcg/hr Patch 72 Hour 12 mcg transdermal Q3D Qty: 0 RF: 0 Discharge Orders: Discharge Order (Routine); Ordered 08/24/21 Ordered By: Neymar Bailey Admission Data Admit Date/Time: 08/15/21 09:50 Attending Provider: Cesar Kerr Admit Provider: Jhoan German Primary Care Provider: PCP,NO Other Providers: Chandler Mena ; Jp Castrejon ; Caty Serna Supervising Physician Co-Signing Physician Notes I personally examined the patient and verified all amaro points of history and exam, discussed case, and agree with decision making with Dr bailey she is feeojng better. dizzy/nausea better. thunks morphine helping enough and not causing much for adr. wants to go home. discussed outpt follow up ajd plan for narcotics cycling will dw pcp. personally called pharmcy and dw pharmacist vitals noted nad heent nc at mmm. breathing unlabored no accessory muscles. no focal neurological deficits r sickle cell, pain, complicated by narcotic's adrs - likely will do better with - cycling will dw pcp. safe for home Resident Activity Tracking Resident Involvement: Resident Care Provided Care Provided: Adult Hospital Medicine
--- NOTE | 2021-08-24 18:08 | Billing Data ---
Date of Service August 24, 2021 Coding Level of Care Code D/C DAY MANAGEMENT <30 MINS
== END 2021-08-24 19:39 | disposition home or self-care (01) | DRG 812 ==
LOC: ED 16:16 → 3N 16:16 → SUATTDRO 23:09 → 3N 08-14 00:20 → SUATTDRO 08-15 09:50
DX: Z79.891 Long term (current) use of opiate analgesic; I95.89 Other hypotension; M87.852 Other osteonecrosis, left femur; D57.00 Hb-SS disease with crisis, unspecified; M87.851 Other osteonecrosis, right femur; E80.6 Other disorders of bilirubin metabolism; G89.29 Other chronic pain; T40.2X5A Adverse effect of other opioids, initial encounter; K59.03 Drug induced constipation; K21.9 Gastro-esophageal reflux disease without esophagitis

== ENCOUNTER 2021-10-13 11:31 | Inpatient (IN) ==
[2021-10-13] MEDS ORDERED: SODIUM CHLORIDE 0.9% 500 ML IV STA (11:49)
[2021-10-13] MEDS ORDERED: MoRPHine SULFATE 4 MG/ML 1 ML CARP\\VIAL IV STA ×3 (11:49→16:21)
--- NOTE | 2021-10-13 11:52 | Emergency Department Note ---
Impression & Plan Sickle cell anemia ED Provider Note HPI: The patient is a 21-year-old female with history of sickle cell anemia, borderline personality disorder, nonepileptic seizure disorder, presents the [facility] department today with a chief complaint of lower extremity pain generalized sickle cell pain that has been worsening throughout the last 2 days. Patient states that her lower extremity pain does seem worse than she has had in the past with her exacerbations of sickle cell pain. Patient denies any recent fever, denies any cough, on arrival she is hemodynamically stable, she is not in any apparent distress on my initial evaluation and she is saturating well on room air. 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 Hemoglobin is 9.0 which is stable and within range of her previous levels, reticulocyte count is within range for previous levels as well. Chest x-ray does not show any evidence of infiltrate or acute chest. On my reassessment following multiple rounds of morphine IV, patient states she still is having too much pain to go home. Discussed with the hospitalist service as the patient has required frequent admissions in the past for sickle cell pain crisis, following my discussion with Dr. Elias patient was admitted to the hospitalist service for further management. Diagnosis: 1. Sickle cell pain crisis, acute, intractable 2. Chronic anemia Disposition: Admission Guicho Whitten DO Emergency Medicine Past Med/Surg History Medical History Acute leg pain Borderline personality disorder Chest pain Chronic pain Depression with suicidal ideation Murmur, cardiac Nausea Overdose Overdose Person under investigation for COVID-19 Pneumonia Pseudoseizures Seizure-like activity Sickle cell anemia Sickle cell crisis Suicidal ideation Suicide gesture Surgical History No pertinent past surgical history Family History Mother Hypertension Father Ulcer Other Family history non-contributory Social History Smoking Status: Never smoker Tobacco Type: Cigarettes Second Hand Exposure: Yes; Hx Alcohol Use: Yes Alcohol type: other Hx Substance Use: No Preferred Language: [place] Communication Ability: Effective Hyperbaric Technologist Required: No Beliefs That Will Affect Care: None marital status: Single Current Living Situation: Other Current Living Situation Comment: lives with roommates 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 current occupation: [employer] major Feels Safe at Home: Yes Assistive Devices: None Allergies Allergies Allergy/AdvReac Type Severity Reaction Status Date / Time ekg electrodes Allergy Intermediate Blister Uncoded 08/13/21 22:04 Home Meds Home Medications Medication Instructions Recorded Confirmed folic acid 1 mg tablet 2 mg PO DAILY 01/31/21 08/13/21 hydroxyurea 500 mg capsule 1,000 mg PO BID 01/31/21 08/13/21 cholecalciferol (vitamin D3) 25 25 mcg PO DAILY 08/13/21 08/13/21 mcg (1,000 unit) tablet (Vitamin D3) polyethylene glycol 3350 17 17 g PO DAILY PRN Constipation 08/13/21 08/13/21 gram/dose oral powder Previous Rx's Medication Instructions Recorded fentanyl 12 mcg/hr transdermal 12 mcg transdermal Q3D #0 ea 06/16/21 patch morphine 15 mg immediate release 15 mg PO Q8H PRN pain #90 tabs 08/24/21 tablet ondansetron HCl 4 mg tablet 4 mg PO Q8 PRN nausea and vomiting 08/24/21 #15 tabs Results & Data (ED) Vital Signs Vital Signs - 24 hr 10/13/21 11:40 10/13/21 13:26 Temperature 37.2 C Temperature Source Oral Pulse Rate 74 Pulse Rate [Finger] 75 Respiratory Rate 16 14 Respiratory Effort / Characteristics Non-Labored Non-Labored Respiratory Depth Normal Normal Respiratory Pattern Regular Regular Blood Pressure 112/75 Blood Pressure [Right Arm] 104/61 Blood Pressure Mean 87 Blood Pressure Mean [Right Arm] 75 Blood Pressure Position Semi-fowlers Blood Pressure Position [Right Arm] Semi-fowlers Pulse Oximetry 97 96 Oxygen Delivery Method Room Air Room Air Sepsis Recent Fever Within 48 Hours No Sepsis New/Unexplained Change in Mental Status N/A Sepsis Action Taken by Nursing No Action Required Laboratory Data Result diagrams: 10/13/21 12:10/13/21 12: Lab Results 10/13/21 10/13/21 10/13/21 Range/Units 12: 12: 12: WBC 8.20 (4.8-10.8) K/ul RBC 2.45 L (3.93-5.22) M/uL Hgb 9.0 L (12.0-16.0) g/dl Hct 24.6 L (34.1-44.9) % MCV 100.4 H (80.0-100.0) fL MCH 36.7 H (25.0-34.0) pg MCHC 36.6 H (32.0-36.0) g/dL RDW Std Deviation 76.4 H (36.4-46.3) fL RDW Coeff of Nando 21.1 H (11.5-14.5) % Plt Count 406 H (130-400) K/uL MPV 9.6 (9.4-12.3) fL Immature Gran % (Auto) 0.2 % Neut % (Auto) 71.7 % Lymph % (Auto) 22.9 % Sully % (Auto) 4.0 % Eos % (Auto) 1.0 % Baso % (Auto) 0.2 % Reticulocyte % (Auto) (0.5-2.0) % Neut # (Auto) 5.87 (1.4-6.5) K/uL Lymph # (Auto) 1.88 (1.2-3.4) K/uL Sully # (Auto) 0.33 (0.24-0.82) K/uL Eos # (Auto) 0.08 (0-0.50) K/uL Baso # (Auto) 0.02 (0-0.2) K/uL Reticulocyte # (0.02-0.10) 10^6/uL Immature Gran # (Auto) 0.02 (0.00-0.02) K/uL Absolute Nucleated RBC 0.21 H (0-0) K/uL Nucleated RBC % (auto) 2.6 % Polychromasia 2+ Sickle Cells 1+ Target Cells 2+ Sodium 139 (136-145) mmol/L Potassium 4.2 (3.5-5.1) mmol/L Chloride 104 (98-107) mmol/L Carbon Dioxide 27 (21-32) mmol/L Anion Gap 8 (3-11) BUN 4 L (6-23) mg/dl Creatinine 0.46 L (0.6-1.2) mg/dl Est Cr Clr Drug Dosing 178.1 ml/min Est GFR ( Amer) > 150.0 ml/min Est GFR (Non-Af Amer) 140.2 ml/min BUN/Creatinine Ratio 8.7 L (10-20) Glucose 83 (70-99(Fasting)) mg/dl Calcium 9.6 (8.5-10.1) mg/dl Total Bilirubin 3.0 H (0.2-1.0) mg/dl AST 38 (13-39) U/L ALT 13 (7-52) U/L Alkaline Phosphatase 43 (34-104) U/L Total Protein 7.8 (6.0-8.3) gm/dl Albumin 4.6 (3.4-5.0) gm/dl Globulin 3.2 (2.5-4.0) gm/dl Albumin/Globulin Ratio 1.4 (0.9-2) HCG, Qual Cancelled 10/13/21 Range/Units 12:27 WBC (4.8-10.8) K/ul RBC (3.93-5.22) M/uL Hgb (12.0-16.0) g/dl Hct (34.1-44.9) % MCV (80.0-100.0) fL MCH (25.0-34.0) pg MCHC (32.0-36.0) g/dL RDW Std Deviation (36.4-46.3) fL RDW Coeff of Nando (11.5-14.5) % Plt Count (130-400) K/uL MPV (9.4-12.3) fL Immature Gran % (Auto) % Neut % (Auto) % Lymph % (Auto) % Sully % (Auto) % Eos % (Auto) % Baso % (Auto) % Reticulocyte % (Auto) 9.0 H (0.5-2.0) % Neut # (Auto) (1.4-6.5) K/uL Lymph # (Auto) (1.2-3.4) K/uL Sully # (Auto) (0.24-0.82) K/uL Eos # (Auto) (0-0.50) K/uL Baso # (Auto) (0-0.2) K/uL Reticulocyte # 0.22 H (0.02-0.10) 10^6/uL Immature Gran # (Auto) (0.00-0.02) K/uL Absolute Nucleated RBC (0-0) K/uL Nucleated RBC % (auto) % Polychromasia Sickle Cells Target Cells Sodium (136-145) mmol/L Potassium (3.5-5.1) mmol/L Chloride (98-107) mmol/L Carbon Dioxide (21-32) mmol/L Anion Gap (3-11) BUN (6-23) mg/dl Creatinine (0.6-1.2) mg/dl Est Cr Clr Drug Dosing ml/min Est GFR ( Amer) ml/min Est GFR (Non-Af Amer) ml/min BUN/Creatinine Ratio (10-20) Glucose (70-99(Fasting)) mg/dl Calcium (8.5-10.1) mg/dl Total Bilirubin (0.2-1.0) mg/dl AST (13-39) U/L ALT (7-52) U/L Alkaline Phosphatase (34-104) U/L Total Protein (6.0-8.3) gm/dl Albumin (3.4-5.0) gm/dl Globulin (2.5-4.0) gm/dl Albumin/Globulin Ratio (0.9-2) HCG, Qual Administered Medications Discontinued Medications Sodium Chloride (Nss) 500 mls @ 999 mls/hr IV .Q31M STA Stop: 10/13/21 12:19 Last Infusion: 10/13/21 13:34 Dose: 0 mls/hr Documented By: Admin: 10/13/21 12:35 Dose: 999 mls/hr Documented By: HANDY Morphine Sulfate (Morphine Sulfate 4 Mg/Ml 1 Ml Carp\Vial) 6 mg IV NOW STA Stop: 10/13/21 11:50 Last Admin: 10/13/21 12:35 Dose: 6 mg Documented By: HANDY Morphine Sulfate (Morphine Sulfate 2 Mg/Ml Carp) Confirm Administered Dose 2 mg .ROUTE .STK-MED ONE Stop: 10/13/21 12:31 Last Admin: 10/13/21 12:36 Dose: Not Given Documented By: HANDY Morphine Sulfate (Morphine Sulfate 4 Mg/Ml 1 Ml Carp\Vial) 4 mg IV NOW STA Stop: 10/13/21 13:42 Last Admin: 10/13/21 13:52 Dose: 4 mg Documented By: HANDY Imaging Data Radiologist's Impression: Chest X-Ray 10/13/21 11:50 SINGLE VIEW CHEST CLINICAL HISTORY: Sickle cell disease. Atypical chest pain. FINDINGS: An AP, portable, upright chest radiograph is compared to study dated 08/13/2021. The cardiomediastinal silhouette is top normal for projection. The lungs and pleural spaces are clear. No pneumothorax is seen. The bony thorax is grossly intact. Suspect avascular necrosis of the right humeral head. IMPRESSION: No active disease in the chest. ACT 112: Negative or not required by law. Electronically signed by: Richard Mcmahon M.D. 10/13/2021 12:49 PM Discharge Plan Visit Data Chief Complaint: Pain (Generalized) Stated Complaint: Generalized Pain ED Provider: Guicho Whitten Discharge Problem: Sickle cell anemia Patient Disposition: Home - Self-Care Condition: Good Discharge Instructions Margo/Other Patient Handouts: ED Sickle Cell Pain Crisis Activity Restrictions/Additional Instructions: Please follow-up with your primary care doctor in 2 to 3 days for reassessment. Please return to the emergency department with any new or worsening symptoms. Forms Stand Alone Forms: My [facility], Virtual Emergency Department, Important Visit Information Prescriptions Prescriptions: No Action polyethylene glycol 3350 17 gram/dose powder 17 g PO DAILY PRN (Reason: Constipation) cholecalciferol (vitamin D3) [Vitamin D3] 25 mcg (1,000 unit) Tablet 25 mcg PO DAILY morphine 15 mg tablet 15 mg PO Q8H PRN (Reason: pain) Qty: 90 0RF ondansetron HCl 4 mg tablet 4 mg PO Q8 PRN (Reason: nausea and vomiting) Qty: 15 0RF hydroxyurea 500 mg capsule 1,000 mg PO BID folic acid 1 mg Tablet 2 mg PO DAILY fentanyl 12 mcg/hr Patch 72 Hour 12 mcg transdermal Q3D Qty: 0 0RF Referrals Referrals: PCP,NO [Physician] - : Sickle cell anemia Qualifiers: Sickle-cell associated disorders: with unspecified crisis Qualified Code(s): D57.00 - Hb-SS disease with crisis, unspecified
[2021-10-13] MEDS ORDERED: MoRPHine SULFATE 2 MG/ML CARP ONE (12:30)
[2021-10-13 12:41] LABS: Basophils # (auto) 0.02 K/uL (0-0.2); Basophils % (auto) 0.2 %; Eosinophils # (auto) 0.08 K/uL (0-0.50); Hematocrit (blood only) 24.6 % (34.1-44.9); Immature Granulocytes # (auto) 0.02 K/uL (0.00-0.02); Immature Granulocytes % (auto) 0.2 %; Lymphocytes # (auto) 1.88 K/uL (1.2-3.4); Lymphocytes % (auto) 22.9 %; Mean Corpuscular Hemoglobin 36.7 pg (25.0-34.0); Mean Corpuscular Hgb Conc 36.6 g/dL (32.0-36.0); Mean Corpuscular Volume 100.4 fL (80.0-100.0); Mean Platelet Volume 9.6 fL (9.4-12.3); Monocytes # (auto) 0.33 K/uL (0.24-0.82); Neutrophils # (auto) 5.87 K/uL (1.4-6.5); Neutrophils % (auto) 71.7 %; Nucleated RBC # (auto) 0.21 K/uL (0-0); Nucleated RBC % (auto) 2.6 %; Platelet Count 406 K/uL (130-400); RDW Coefficient of Variation 21.1 % (11.5-14.5); RDW Standard Deviation 76.4 fL (36.4-46.3); Red Blood Count 2.45 M/uL (3.93-5.22)
--- NOTE | 2021-10-13 12:50 | XRay Report ---
SINGLE VIEW CHEST CLINICAL HISTORY: Sickle cell disease. Atypical chest pain. FINDINGS: An AP, portable, upright chest radiograph is compared to study dated 08/13/2021. The cardiom ediastinal silhouette is top normal for projection. The lungs and pleural spaces are clear. No pneumo thorax is seen. The bony thorax is grossly intact. Suspect avascular necrosis of the right humeral he ad. IMPRESSION: No active disease in the chest. ACT 112: Negative or not required by law. Electronically signed by: Richard Mcmahon M.D. 10/13/2021 12:49 PM
[2021-10-13 12:51] LABS: Reticulocytes # 0.22 10^6/uL (0.02-0.10)
[2021-10-13 13:01] LABS: Polychromasia 2+; Sickle Cells 1+; Target Cells 2+
[2021-10-13 13:12] LABS: Alanine Aminotransferase 13 U/L (7-52); Albumin Globulin Ratio 1.4 (0.9-2); Albumin Level 4.6 gm/dl (3.4-5.0); Alkaline Phosphatase 43 U/L (34-104); Anion Gap 8 (3-11); Aspartate Aminotransferase 38 U/L (13-39); BUN Creatinine Ratio 8.7 (10-20); Blood Urea Nitrogen 4 mg/dl (6-23); Calcium 9.6 mg/dl (8.5-10.1); Carbon Dioxide 27 mmol/L (21-32); Chloride 104 mmol/L (98-107); Creatinine Clr Calc Pharmacy 178.1 ml/min; Est GFR (African American) > 150.0 ml/min; Est GFR (Non-African American) 140.2 ml/min; Globulin 3.2 gm/dl (2.5-4.0); Glucose 83 mg/dl (70-99(Fasting)); Potassium 4.2 mmol/L (3.5-5.1); Sodium 139 mmol/L (136-145); Total Protein 7.8 gm/dl (6.0-8.3)
[2021-10-13 14:49] LABS: Pregnancy Test, Serum Negative (Negative)
--- NOTE | 2021-10-13 15:28 | History & Physical Report ---
Date of Service October 13, 2021 Assessment & Plan (1) Sickle cell anemia: Plan: Follows with [employer], though I don't believe she's seen a attending anesthesiologist in quite some time. - Continue home hydroxyurea - Continue home fentanyl patch - IV fluids - Start tiered pain medication based on prior admission: * Acetaminophen for mild pain * Morphine 4 mg IV for moderate pain * Morphine 6 mg IV for severe pain - Zofran PRN - Consider reaching out to hematology. She did not get along with prior CCP provider, but may be amenable to meeting with new attending anesthesiologist. (2) Intractable pain: Plan: - As above (3) Depression: Plan: Due to diagnosis and life circumstances. Fairly stable affect on admission. - Could consider behavioral health consult if this becomes overt (4) Seizure-like activity: Plan: Prior hx of non-epileptic seizures. - Monitor (5) DVT prophylaxis: Plan: High VTE risk given her sickle cell. - Lovenox 40 mg SQ daily History of Present Illness Primary Care Provider: [facility] 21yo F w/ hx of sickle cell who presents with pain crisis. Has unfortunately not been able to follow up with PCP in last few months as she reports her usual PCP has been on other rotations and been unavailable. Patient reports that her pain started to escalate 2-3 days ago. She reports she uses her fentanyl patch and essentially takes her breakthrough morphine as standing, and therefore has nothing else to treat her pain with. The pain this time around is in the lower back and right knee. Denies shortness of breath, chest pain, fevers/chills, other symptoms. Allergies Allergy/AdvReac Type Severity Reaction Status Date / Time ekg electrodes Allergy Intermediate Blister Uncoded 10/13/21 14:57 Home Medications Medication Instructions Recorded Confirmed Type folic acid 1 mg tablet 2 mg PO DAILY 01/31/21 10/13/21 History hydroxyurea 500 mg capsule 1,000 mg PO BID 01/31/21 10/13/21 History fentanyl 12 mcg/hr transdermal 12 mcg transdermal Q3D #0 ea 06/16/21 10/13/21 Rx patch cholecalciferol (vitamin D3) 25 25 mcg PO DAILY 08/13/21 10/13/21 History mcg (1,000 unit) tablet (Vitamin D3) polyethylene glycol 3350 17 17 g PO DAILY PRN Constipation 08/13/21 10/13/21 History gram/dose oral powder morphine 15 mg immediate release 15 mg PO Q8H PRN pain #90 tabs 08/24/21 10/13/21 Rx tablet ondansetron HCl 4 mg tablet 4 mg PO Q8 PRN nausea and vomiting 08/24/21 10/13/21 Rx #15 tabs naloxone 4 mg/actuation nasal 4 mg intranasal UD PRN opiod 10/13/21 10/13/21 History spray (Narcan) overdose Past Med/Surg History Medical History Acute dehydration Acute leg pain Borderline personality disorder Chest pain Chronic pain Depression with suicidal ideation Murmur, cardiac Nausea Overdose Overdose Person under investigation for COVID-19 Pneumonia Pseudoseizures Seizure-like activity Sickle cell anemia Sickle cell crisis Suicidal ideation Suicide gesture Surgical History No pertinent past surgical history Family History Mother Hypertension Father Ulcer Other Family history non-contributory Social History Smoking Status: Never smoker Tobacco Type: Cigarettes Second Hand Exposure: Yes; Hx Alcohol Use: Yes Alcohol type: other Hx Substance Use: No Preferred Language: Irish Communication Ability: Effective Wire Spring Relay Adjuster Required: No Beliefs That Will Affect Care: None marital status: Single Current Living Situation: Other Current Living Situation Comment: lives with roommates 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 current occupation: [employer] major Feels Safe at Home: Yes Assistive Devices: None Review of Systems Review of Systems: All systems reviewed & are unremarkable except as noted in HPI & below Physical Exam Constitutional: WD/WN, vitals as above Eyes: EOM intact bilaterally; no conjunctival abnormality ENMT: external ear and nose normal, oropharynx normal Neck: trachea midline, no thyromegaly normal visual inspection Respiratory: normal respiratory effort, lungs clear to auscultation no respiratory distress Cardiovascular: RRR, no murmur, no edema Gastrointestinal (Abdomen): Inspection/Auscultation: abdomen normal to inspection; abdomen not distended Musculoskeletal: no cyanosis or clubbing, extremities motor strength 5/5 Lower back tenderness and right knee tenderness. No effusion on right knee, no warmth. Skin: no rashes, warm and dry Neurologic: moves all extremities and awake Psychiatric: Orientation: alert, oriented to person and cooperative Results & Data Results & Data ([facility]) Vital Signs (Past 12 Hours) Vital Signs Temp Pulse Pulse Resp BP BP Pulse Ox 10/13/21 13:26 75 14 104/61 96 10/13/21 11:40 37.2 C 74 16 112/75 97 O2 Del Method 10/13/21 13:26 Room Air 10/13/21 11:40 Room Air Code Status & VTE Plan VTE Prophylaxis Plan VTE Prophylaxis will be ordered: Yes PG Care Time/CCT Total # of Minutes Spent Total Time Spent with Patient: Total time spent is greater than 50% in coordination of care (as documented) at patient's floor/unit and/or counseling patient: Coding Level of Care Code 56337 Initial Inpt Care Lvl 3 Diagnoses Sickle cell anemia D57.00 Sickle-cell associated disorders: with unspecified crisis Intractable pain R52 Depression F32.A Seizure-like activity R56.9 DVT prophylaxis Z29.9 (1) Sickle cell anemia Sickle-cell associated disorders: with unspecified crisis Qualified Code(s): D57.00 - Hb-SS disease with crisis, unspecified
[2021-10-13] MEDS ORDERED: ACETAMINOPHEN 325 MG TAB PO PRN (18:08)
[2021-10-13] MEDS ORDERED: MoRPHine SULFATE 2 MG/ML CARP IV PRN (18:08)
[2021-10-13] MEDS ORDERED: POLYETHYLENE (MIRALAX) 17 GM PACK PO PRN (18:08)
[2021-10-13] MEDS ORDERED: ONDANSETRON INJ 2 MG/ML 2 ML VIAL IV PRN (18:08)
[2021-10-13] MEDS: MoRPHine SULFATE 4 MG/ML 1 ML CARP\\VIAL IV PRN ×2 (18:41→21:44)
[2021-10-13] MEDS: SODIUM CHLORIDE 0.9% 1000ML 1,000 ML IV SCH (18:42)
[2021-10-13] MEDS: CHECK fentaNYL PATCH PLACEMENT SCH (19:38)
[2021-10-13] MEDS: fentaNYL 12 MCG/HR TDSY TD SCH (19:38)
--- NOTE | 2021-10-13 19:40 | XRay Report ---
RIGHT KNEE 2 VIEWS CLINICAL HISTORY: Right knee pain. FINDINGS: AP and crosstable lateral views of the right knee are obtained. No prior studies are availa ble for comparison at the time of dictation. The skeletal structures are well mineralized. No fractur e is seen. The joint spaces of the knee are maintained. There is no joint effusion. The overlying sof t tissues are within normal limits. IMPRESSION: No acute bony abnormality is identified. Electronically signed by: Richard Mcmahon M.D. 10/13/2021 7:38 PM
--- NOTE | 2021-10-13 19:42 | XRay Report ---
LUMBAR SPINE 3 VIEWS CLINICAL HISTORY: Low back pain. FINDINGS: 3 views of the lumbar spine are correlated with MRI of lumbar spine dated 03/30/2019. The s keletal structures are well mineralized. There is no radiographic evidence of fracture or malalignmen t. Mild loss of height of L5 is unchanged. Vertebral body height is otherwise maintained. Alignment i s preserved. There is straightening of the lumbar lordosis. The transverse and spinous processes are intact. Tiny anterior and lateral marginal osteophytes are seen throughout. The intervertebral disc s paces are well-maintained. The visualized bony pelvis appears intact. There is avascular necrosis wit h cortical collapse of the right femoral head. There is a nonobstructed abdominal bowel gas pattern. IMPRESSION: 1. No acute bony abnormality is seen involving the lumbar spine. 2. Avascular necrosis of the right femoral head. ACT 112: Negative or not required by law. Electronically signed by: Richard Mcmahon M.D. 10/13/2021 7:41 PM
[2021-10-13] MEDS: ENOXAPARIN INJ 40 MG/0.4 ML SYR SQ SCH (20:04)
[2021-10-13] MEDS: HYDROXYUREA 500 MG CAP PO SCH (21:10)
[2021-10-14] MEDS: CHECK fentaNYL PATCH PLACEMENT SCH ×4 (00:46→23:18)
[2021-10-14] MEDS: MoRPHine SULFATE 4 MG/ML 1 ML CARP\\VIAL IV PRN ×6 (02:51→22:03)
[2021-10-14] MEDS: SODIUM CHLORIDE 0.9% 1000ML 1,000 ML IV SCH ×2 (05:15→15:37)
--- NOTE | 2021-10-14 06:43 | Hospitalist Progress Note ---
Date of Service October 14, 2021 Assessment & Plan (1) Sickle cell anemia: Plan: Follows with [employer], though I don't believe she's seen a theatre manager in quite some time. - Continue home hydroxyurea - Continue home fentanyl patch - IV fluids - Start tiered pain medication based on prior admission: * Acetaminophen for mild pain * Morphine 2 mg IV for moderate pain * Morphine 4 mg IV for severe pain - Zofran PRN - Consider reaching out to hematology. She did not get along with prior CCP provider, but may be amenable to meeting with new theatre manager. -Hbg today 7.5 (from 9), will transfuse 1U blood (2) Intractable pain: Plan: - As above (3) Depression: Plan: Due to diagnosis and life circumstances. Fairly stable affect on admission. - Could consider behavioral health consult if this becomes overt (4) Seizure-like activity: Plan: Prior hx of non-epileptic seizures. - Monitor (5) DVT prophylaxis: Plan: High VTE risk given her sickle cell. - Lovenox 40 mg SQ daily Admission and Anticipated Discharge Date Admission Date: October 13, 2021 Supervising Physician Co-Signing Physician Notes Heath is seen this morning. She is sleeping but easily awakens. She complains of generalized pain, similar to previous admissions, but perhaps more pain in the legs (joints) than previous admissions. At present, denies any chest pain or shortness of breath. She notes that the rain and temperature changes will sometimes lead to a crisis; she is also nearing her menstrual cycle, and this has led to symptom exacerbation in the past. Exam 90/56, 61, 16, 36.8, 95% on room air She is pleasant. Smiles. No acute distress appreciated. Appropriate and reactive affect Heart is regular rate and rhythm Lungs are clear throughout with nonlabored respirations Data WBC 5.89, hemoglobin 7.5, platelet count 339 Sodium 139, potassium 3.6, BUN 6, creatinine 0.43 A lumbar spine x-ray dated 10/13/2021 shows no acute bony abnormality involving the lumbar spine. Avascular necrosis of the right femoral head is appreciated. X-ray of the right knee shows no acute bony abnormality. Impression and plan Sickle cell anemia, crisis Pain control Hydration Will transfuse 1 unit packed red blood cells today Monitor hemoglobin Depression This actually seems improved since the last time I saw her Continue home medications Subjective Patient seen resting in bed, calm cooperative. She states she still has pain ongoing in her abd, legs, denies difficulty breathing. States she follows with Dr. German as PCP but has not gotten to see him recently. Patient requests something more for her pain, feels it is not quite controlled at this time. She understands her hemglobin level is low and consents to blood transfusion. Patient states she still has 1 semester of college left to go. Review of Systems Review of Systems: Negative fever chills Negative chest pain palpitations SOB Negative nausea vomitting diarrhea constipation Physical Exam Constitutional: WD/WN, vitals as above Eyes: PERRL, conjunctivae normal, anicteric sclerae ENMT: external ear and nose normal, oropharynx normal Neck: trachea midline, no thyromegaly Respiratory: normal respiratory effort, lungs clear to auscultation Cardiovascular: RRR, no murmur, no edema Chest (Breasts): normal inspection/palpation of breasts Gastrointestinal (Abdomen): Inspection/Auscultation: abdomen normal to inspection Percussion/Palpation: + abdomen tender (RUQ and LUQ) and abdomen soft Skin: no rashes, warm and dry Results & Data Results & Data ([facility]) Vital Signs (Past 12 Hours) Vital Signs Temp Pulse Resp BP Pulse Ox O2 Del Method 10/14/21 00:55 71 16 94/54 L 98 Room Air 10/13/21 22:09 37.1 C 69 16 99/60 L 94 Laboratory Results 10/14/21 10/14/21 10/14/21 Range/Units 12:27 07:59 07:59 WBC 5.89 (4.8-10.8) K/ul RBC 2.07 L (3.93-5.22) M/uL Hgb 7.5 L (12.0-16.0) g/dl Hct 21.0 L (34.1-44.9) % MCV 101.4 H (80.0-100.0) fL MCH 36.2 H (25.0-34.0) pg MCHC 35.7 (32.0-36.0) g/dL RDW Std Deviation 71.8 H (36.4-46.3) fL RDW Coeff of Nando 19.4 H (11.5-14.5) % Plt Count 339 (130-400) K/uL MPV 10.2 (9.4-12.3) fL Immature Gran % (Auto) 0.3 % Neut % (Auto) 48.5 % Lymph % (Auto) 42.4 % [place] % (Auto) 5.8 % Eos % (Auto) 2.5 % Baso % (Auto) 0.5 % Neut # (Auto) 2.85 (1.4-6.5) K/uL Lymph # (Auto) 2.50 (1.2-3.4) K/uL [place] # (Auto) 0.34 (0.24-0.82) K/uL Eos # (Auto) 0.15 (0-0.50) K/uL Baso # (Auto) 0.03 (0-0.2) K/uL Immature Gran # (Auto) 0.02 (0.00-0.02) K/uL Absolute Nucleated RBC 0.13 H (0-0) K/uL Nucleated RBC % (auto) 2.2 % Polychromasia 1+ Poikilocytosis Present Anisocytosis Present Sickle Cells 1+ Target Cells 2+ Tear Drop Cells 1+ Sodium 139 (136-145) mmol/L Potassium 3.6 (3.5-5.1) mmol/L Chloride 106 (98-107) mmol/L Carbon Dioxide 27 (21-32) mmol/L Anion Gap 6 (3-11) BUN 6 (6-23) mg/dl Creatinine 0.43 L (0.6-1.2) mg/dl Est Cr Clr Drug Dosing 190.5 ml/min Est GFR ( Amer) > 150.0 ml/min Est GFR (Non-Af Amer) 143.4 ml/min BUN/Creatinine Ratio 14.0 (10-20) Glucose 79 (70-99(Fasting)) mg/dl Calcium 8.8 (8.5-10.1) mg/dl Magnesium 1.8 (1.7-2.4) mg/dl Blood Type B Positive Antibody Screen NEGATIVE Crossmatch See Detail Medications Administered Current Inpatient Medications Acetaminophen (Acetaminophen 325 Mg Tab) 650 mg PO Q4H PRN PRN Reason: Mild Pain Stop: 11/12/21 18:07 Enoxaparin Sodium (Enoxaparin Inj 40 Mg/0.4 Ml Syr) 40 mg SQ Q24H [facility] Stop: 11/12/21 19:18 Last Admin: 10/13/21 20:04 Dose: Not Given Fentanyl (Fentanyl 12 Mcg/Hr Tdsy) 12 mcg TD Q3D WALTER Stop: 10/27/21 18:07 Last Admin: 10/13/21 19:38 Dose: 12 mcg Folic Acid (Folic Acid 1 Mg Tab) 2 mg PO DAILY [facility] Stop: 11/13/21 08:59 Last Admin: 10/14/21 08:08 Dose: 2 mg Hydroxyurea (Hydroxyurea 500 Mg Cap) 1,000 mg PO BID [facility] Stop: 11/12/21 20:59 Last Admin: 10/14/21 08:08 Dose: 1,000 mg Sodium Chloride (Nss 1000ml) 1,000 mls @ 100 mls/hr IV .Q10H [facility] Stop: 11/12/21 18:07 Last Admin: 10/14/21 15:37 Dose: 100 mls/hr Sodium Chloride (Nss) 250 mls @ 15 mls/hr IV .[id number] PRN PRN Reason: For Transfusion Stop: 10/14/21 22:18 Miscellaneous (Fentanyl Patch Remove & Waste) 1 each N/A Q3D [facility] Stop: 11/12/21 18:07 Last Admin: 10/13/21 19:38 Dose: 1 each Miscellaneous (Check Fentanyl Patch Placement) 1 each N/A QS [facility] Stop: 11/12/21 18:07 Last Admin: 10/14/21 15:37 Dose: 1 each Morphine Sulfate (Morphine Sulfate 2 Mg/Ml Carp) 2 mg IV Q3H PRN PRN Reason: Moderate Pain Stop: 10/27/21 18:07 Morphine Sulfate (Morphine Sulfate 4 Mg/Ml 1 Ml Carp\Vial) 4 mg IV Q3H PRN PRN Reason: Severe Pain Stop: 10/27/21 18:07 Last Admin: 10/14/21 15:38 Dose: 4 mg Ondansetron HCl (Ondansetron Inj 2 Mg/Ml 2 Ml Vial) 4 mg IV Q4H PRN PRN Reason: Nausea Stop: 11/12/21 18:07 Polyethylene Glycol (Polyethylene (Miralax) 17 Gm Pack) 17 gm PO DAILY PRN PRN Reason: Constipation Stop: 11/12/21 18:07 Resident Activity Tracking Resident Involvement: Resident Care Provided Care Provided: [facility] (1) Sickle cell anemia Sickle-cell associated disorders: with unspecified crisis Qualified Code(s): D57.00 - Hb-SS disease with crisis, unspecified
[2021-10-14] MEDS: HYDROXYUREA 500 MG CAP PO SCH ×2 (08:08→20:40)
[2021-10-14] MEDS: FOLIC ACID 1 MG TAB PO SCH (08:08)
[2021-10-14 08:46] LABS: Basophils # (auto) 0.03 K/uL (0-0.2); Basophils % (auto) 0.5 %; Eosinophils # (auto) 0.15 K/uL (0-0.50); Eosinophils % (auto) 2.5 %; Hemoglobin 7.5 g/dl (12.0-16.0); Immature Granulocytes # (auto) 0.02 K/uL (0.00-0.02); Immature Granulocytes % (auto) 0.3 %; Lymphocytes % (auto) 42.4 %; Mean Corpuscular Hemoglobin 36.2 pg (25.0-34.0); Mean Corpuscular Hgb Conc 35.7 g/dL (32.0-36.0); Mean Corpuscular Volume 101.4 fL (80.0-100.0); Mean Platelet Volume 10.2 fL (9.4-12.3); Monocytes # (auto) 0.34 K/uL (0.24-0.82); Monocytes % (auto) 5.8 %; Neutrophils # (auto) 2.85 K/uL (1.4-6.5); Neutrophils % (auto) 48.5 %; Nucleated RBC # (auto) 0.13 K/uL (0-0); Nucleated RBC % (auto) 2.2 %; Platelet Count 339 K/uL (130-400); RDW Coefficient of Variation 19.4 % (11.5-14.5); RDW Standard Deviation 71.8 fL (36.4-46.3); Red Blood Count 2.07 M/uL (3.93-5.22); White Blood Count 5.89 K/ul (4.8-10.8)
[2021-10-14 09:04] LABS: Anisocytosis Present; Poikilocytosis Present; Polychromasia 1+; Sickle Cells 1+; Target Cells 2+; Tear Drop Cells 1+
[2021-10-14 09:10] LABS: Anion Gap 6 (3-11); Blood Urea Nitrogen 6 mg/dl (6-23); Calcium 8.8 mg/dl (8.5-10.1); Carbon Dioxide 27 mmol/L (21-32); Chloride 106 mmol/L (98-107); Creatinine Clr Calc Pharmacy 190.5 ml/min; Est GFR (African American) > 150.0 ml/min; Est GFR (Non-African American) 143.4 ml/min; Glucose 79 mg/dl (70-99(Fasting)); Magnesium 1.8 mg/dl (1.7-2.4); Potassium 3.6 mmol/L (3.5-5.1); Sodium 139 mmol/L (136-145)
[2021-10-14] MEDS ORDERED: SODIUM CHLORIDE 0.9% 250 ML IV PRN (12:17)
[2021-10-14] MEDS: ENOXAPARIN INJ 40 MG/0.4 ML SYR SQ SCH (20:03)
[2021-10-15] MEDS: SODIUM CHLORIDE 0.9% 1000ML 1,000 ML IV SCH (00:21)
[2021-10-15] MEDS: MoRPHine SULFATE 4 MG/ML 1 ML CARP\\VIAL IV PRN ×5 (01:38→16:09)
[2021-10-15 07:33] LABS: Hematocrit (blood only) 23.4 % (34.1-44.9); Hemoglobin 8.6 g/dl (12.0-16.0); Mean Corpuscular Hgb Conc 36.8 g/dL (32.0-36.0); Mean Corpuscular Volume 95.1 fL (80.0-100.0); Mean Platelet Volume 10.2 fL (9.4-12.3); Nucleated RBC # (auto) 0.08 K/uL (0-0); Nucleated RBC % (auto) 1.7 %; Platelet Count 279 K/uL (130-400); RDW Coefficient of Variation 19.7 % (11.5-14.5); RDW Standard Deviation 67.2 fL (36.4-46.3); Red Blood Count 2.46 M/uL (3.93-5.22); White Blood Count 4.63 K/ul (4.8-10.8)
[2021-10-15 07:49] LABS: Anion Gap 5 (3-11); BUN Creatinine Ratio 18.4 (10-20); Blood Urea Nitrogen 7 mg/dl (6-23); Calcium 8.8 mg/dl (8.5-10.1); Carbon Dioxide 26 mmol/L (21-32); Chloride 107 mmol/L (98-107); Creatinine Clr Calc Pharmacy 215.5 ml/min; Est GFR (African American) > 150.0 ml/min; Est GFR (Non-African American) 149.3 ml/min; Glucose 85 mg/dl (70-99(Fasting)); Magnesium 1.6 mg/dl (1.7-2.4); Potassium 3.7 mmol/L (3.5-5.1); Sodium 138 mmol/L (136-145)
[2021-10-15] MEDS: FOLIC ACID 1 MG TAB PO SCH (08:29)
[2021-10-15] MEDS: CHECK fentaNYL PATCH PLACEMENT SCH ×3 (08:29→23:19)
[2021-10-15] MEDS: HYDROXYUREA 500 MG CAP PO SCH ×2 (08:29→19:57)
[2021-10-15] MEDS ORDERED: LACTATED RINGER'S 1,000 ML IV SCH (09:15)
[2021-10-15] MEDS ORDERED: NORMOSOL-R 1,000 ML IV SCH (09:15)
[2021-10-15] MEDS: MAGNESIUM SULFATE / D5W 1 GM/100 ML BAG IV SCH ×2 (10:05→12:17)
[2021-10-15] MEDS: SODIUM CHLORIDE 0.45 % 1,000 ML IV SCH (16:22)
--- NOTE | 2021-10-15 18:54 | Hospitalist Progress Note ---
Date of Service October 15, 2021 Assessment & Plan (1) Sickle cell anemia: Plan: Follows with [employer], though I don't believe she's seen a facilities maintenance technician in quite some time. - Continue home hydroxyurea - Continue home fentanyl patch - cont. IV fluids - Advanced pain regimen to IV morphine 6mg q3h prn - Zofran PRN - Consider reaching out to hematology. She did not get along with prior CCP provider, but may be amenable to meeting with new facilities maintenance technician. - Hgb 8.6 s/p 1 unit blood, repeat am (2) Intractable pain: Plan: - As above (3) Depression: Plan: Due to diagnosis and life circumstances. Fairly stable affect on admission. - Could consider behavioral health consult if this becomes overt (4) Seizure-like activity: Plan: Prior hx of non-epileptic seizures. - Monitor (5) DVT prophylaxis: Plan: High VTE risk given her sickle cell. - Lovenox 40 mg SQ daily Admission and Anticipated Discharge Date Admission Date: October 13, 2021 Supervising Physician Co-Signing Physician Notes I personally examined the patient and verified all amaro points of history and exam, discussed case, and agree with decision making with Dr Bailey pain control still subpar - notes morphine not helping enough Impression and plan Sickle cell anemia, crisis Pain control - increase morphine Hydration was transfused 1 unit Depression supportive care Continue home medications Subjective Patient seen at bedside this morning. Doing well but pain not controlled. Regularly taking IV morphine. No BM yet. Denies chest pain, SOB, N/V, headache. Review of Systems Review of Systems: All systems reviewed & are unremarkable except as noted in HPI & below Physical Exam Physical Exam: Constitutional: in no acute distress, pleasant HEENT: No scleral injection or discharge. Moist mucous membranes. Neck: Supple without lymphadenopathy or thyromegaly. Trachea midline. Lungs: Clear to auscultation bilaterally with good effort. Cardiac: RRR. No murmurs. Abdomen: +BS. Soft, nondistended.Mild diffuse tenderness. No guarding. No hepatosplenomegaly. Results & Data Results & Data ([facility]) Vital Signs (Past 12 Hours) Vital Signs Temp Pulse Resp BP BP Pulse Ox O2 Del Method 10/15/21 15:47 37.0 C 65 16 101/63 95 Room Air 10/15/21 09:13 37.1 C 66 16 117/76 98 Room Air Laboratory Results 10/15/21 10/15/21 10/14/21 Range/Units 06:56 06:56 12:27 WBC 4.63 L (4.8-10.8) K/ul RBC 2.46 L (3.93-5.22) M/uL Hgb 8.6 L (12.0-16.0) g/dl Hct 23.4 L (34.1-44.9) % MCV 95.1 D (80.0-100.0) fL MCH 35.0 H (25.0-34.0) pg MCHC 36.8 H (32.0-36.0) g/dL RDW Std Deviation 67.2 H (36.4-46.3) fL RDW Coeff of Nando 19.7 H (11.5-14.5) % Plt Count 279 (130-400) K/uL MPV 10.2 (9.4-12.3) fL Absolute Nucleated RBC 0.08 H (0-0) K/uL Nucleated RBC % (auto) 1.7 % Sodium 138 (136-145) mmol/L Potassium 3.7 (3.5-5.1) mmol/L Chloride 107 (98-107) mmol/L Carbon Dioxide 26 (21-32) mmol/L Anion Gap 5 (3-11) BUN 7 (6-23) mg/dl Creatinine 0.38 L (0.6-1.2) mg/dl Est Cr Clr Drug Dosing 215.5 ml/min Est GFR ( Amer) > 150.0 ml/min Est GFR (Non-Af Amer) 149.3 ml/min BUN/Creatinine Ratio 18.4 (10-20) Glucose 85 (70-99(Fasting)) mg/dl Calcium 8.8 (8.5-10.1) mg/dl Magnesium 1.6 L (1.7-2.4) mg/dl Blood Type B Positive Antibody Screen NEGATIVE Crossmatch See Detail Resident Activity Tracking Resident Involvement: Resident Care Provided Care Provided: Adult Hospital Medicine (1) Sickle cell anemia Sickle-cell associated disorders: with unspecified crisis Qualified Code(s): D57.00 - Hb-SS disease with crisis, unspecified
--- NOTE | 2021-10-15 19:08 | Billing Data ---
Date of Service October 15, 2021 Coding Level of Care Code 50139 Subseq Hosp Care Lvl 3
[2021-10-15] MEDS: MoRPHine SULFATE 10 MG/ML CARP/VIAL IV PRN ×2 (19:52→23:55)
[2021-10-15] MEDS: ENOXAPARIN INJ 40 MG/0.4 ML SYR SQ SCH (19:52)
[2021-10-16] MEDS: SODIUM CHLORIDE 0.45 % 1,000 ML IV SCH ×2 (02:33→12:45)
[2021-10-16] MEDS: MoRPHine SULFATE 10 MG/ML CARP/VIAL IV PRN ×5 (05:48→20:19)
--- NOTE | 2021-10-16 07:10 | Hospitalist Progress Note ---
Date of Service October 16, 2021 Assessment & Plan (1) Sickle cell anemia: Plan: Follows with [employer]. Has not seen a chief diversity officer in quite some time. - Continue home hydroxyurea - Continue home fentanyl patch - cont. hypotonic IV fluids - Cont. pain regimen to include IV morphine 6mg q3h prn - Zofran PRN - Consider reaching out to hematology. She did not get along with prior CCP provider, but may be amenable to meeting with new chief diversity officer. - Incentive spirometer prn to avoid acute chest syndrome - Hgb 8.6 s/p 1 unit blood, stable, repeat am - PT/OT (2) Intractable pain: Plan: - As above (3) Depression: Plan: Due to diagnosis and life circumstances. Fairly stable affect on admission. - Could consider behavioral health consult if this becomes overt (4) Seizure-like activity: Plan: Prior hx of non-epileptic seizures. - Monitor (5) DVT prophylaxis: Plan: High VTE risk given her sickle cell. - Lovenox 40 mg SQ daily DVT ppx: lovenox FEN/GI: regular Code Status: full Dispo: med surg Admission and Anticipated Discharge Date Admission Date: October 13, 2021 Supervising Physician Co-Signing Physician Notes I personally examined the patient and verified all amaro points of history and exam, discussed case, and agree with decision making with Dr Bailey Pain control more or less the same. Discussed raising fentanyl patchbut she expresses concern about whether or not that may hasten an onset of dizziness, given that she has been mostly doing well with her pain regimen at home. Discussed PCAshe declined. Impression and plan Sickle cell anemia, crisis Pain control -continue current care Continue hydration was transfused 1 unit during this hospital stay Depression supportive care Continue home medications Subjective Patient seen at bedside this morning. Doing well. Sleeping alot. Increase morphine dose helping but not lasting more than a couple of hours. Wants to continue course. No BM yet. Denies chest pain, SOB, N/V, headache. Review of Systems Review of Systems: All systems reviewed & are unremarkable except as noted in HPI & below Physical Exam Physical Exam: Constitutional: in no acute distress, pleasant HEENT: No scleral injection or discharge. Moist mucous membranes. Neck: Supple without lymphadenopathy or thyromegaly. Trachea midline. Lungs: Clear to auscultation bilaterally with good effort. Cardiac: RRR. No murmurs. Abdomen: +BS. Soft, nondistended.Mild diffuse tenderness. No guarding. No hepatosplenomegaly. Results & Data Results & Data ([facility]) Vital Signs (Past 12 Hours) Vital Signs Temp Pulse Resp BP Pulse Ox 10/15/21 23:57 110/69 10/15/21 23:02 36.9 C 64 20 90/55 L 99 Laboratory Results 10/16/21 10/16/21 10/14/21 Range/Units 07:28 07:28 12:27 Hgb 8.9 L (12.0-16.0) g/dl Hct 24.5 L (34.1-44.9) % Sodium 137 (136-145) mmol/L Potassium 3.7 (3.5-5.1) mmol/L Chloride 105 (98-107) mmol/L Carbon Dioxide 26 (21-32) mmol/L Anion Gap 6 (3-11) BUN 7 (6-23) mg/dl Creatinine 0.36 L (0.6-1.2) mg/dl Est Cr Clr Drug Dosing 227.5 ml/min Est GFR ( Amer) > 150.0 ml/min Est GFR (Non-Af Amer) > 150.0 ml/min BUN/Creatinine Ratio 19.4 (10-20) Glucose 87 (70-99(Fasting)) mg/dl Calcium 9.1 (8.5-10.1) mg/dl Magnesium 1.6 L (1.7-2.4) mg/dl Crossmatch See Detail Resident Activity Tracking Resident Involvement: Resident Care Provided Care Provided: Adult Hospital Medicine (1) Sickle cell anemia Sickle-cell associated disorders: with unspecified crisis Qualified Code(s): D57.00 - Hb-SS disease with crisis, unspecified
[2021-10-16 07:57] LABS: Hematocrit (blood only) 24.5 % (34.1-44.9); Hemoglobin 8.9 g/dl (12.0-16.0)
[2021-10-16 08:21] LABS: Anion Gap 6 (3-11); BUN Creatinine Ratio 19.4 (10-20); Blood Urea Nitrogen 7 mg/dl (6-23); Calcium 9.1 mg/dl (8.5-10.1); Carbon Dioxide 26 mmol/L (21-32); Chloride 105 mmol/L (98-107); Creatinine Clr Calc Pharmacy 227.5 ml/min; Est GFR (African American) > 150.0 ml/min; Est GFR (Non-African American) > 150.0 ml/min; Glucose 87 mg/dl (70-99(Fasting)); Magnesium 1.6 mg/dl (1.7-2.4); Potassium 3.7 mmol/L (3.5-5.1); Sodium 137 mmol/L (136-145)
[2021-10-16] MEDS: MAGNESIUM SULFATE / D5W 1 GM/100 ML BAG IV SCH ×2 (09:14→10:23)
[2021-10-16] MEDS: CHECK fentaNYL PATCH PLACEMENT SCH ×2 (09:14→17:09)
[2021-10-16] MEDS: FOLIC ACID 1 MG TAB PO SCH (09:14)
[2021-10-16] MEDS: HYDROXYUREA 500 MG CAP PO SCH ×2 (10:23→20:13)
[2021-10-16] MEDS: fentaNYL 12 MCG/HR TDSY TD SCH (17:47)
--- NOTE | 2021-10-16 20:06 | Billing Data ---
Date of Service October 16, 2021 Coding Level of Care Code 60542 Subseq Hosp Care Lvl 2
--- NOTE | 2021-10-16 20:06 | Billing Data ---
Date of Service October 16, 2021 Coding Level of Care Code 27929 Subseq Hosp Care Lvl 2
[2021-10-16] MEDS: ENOXAPARIN INJ 40 MG/0.4 ML SYR SQ SCH (20:13)
[2021-10-17] MEDS: CHECK fentaNYL PATCH PLACEMENT SCH ×4 (00:04→22:40)
[2021-10-17] MEDS: MoRPHine SULFATE 10 MG/ML CARP/VIAL IV PRN ×4 (00:05→18:12)
[2021-10-17] MEDS: SODIUM CHLORIDE 0.45 % 1,000 ML IV SCH ×4 (00:05→22:40)
--- NOTE | 2021-10-17 07:13 | Hospitalist Progress Note ---
Date of Service October 17, 2021 Assessment & Plan (1) Sickle cell anemia: Plan: Follows with [facility]. Has not seen a negative assembler in quite some time. - Cont. home hydroxyurea, fentanyl patch - cont. hypotonic IV fluids - Cont. IV morphine 6mg q3h prn - cont. Zofran PRN - Consider reaching out to hematology. She did not get along with prior CCP provider, but may be amenable to meeting with new negative assembler. - Incentive spirometer prn to prevent acute chest syndrome - Hgb 8.6 s/p 1 unit blood (10/15), stable, monitor - PT/OT (2) Intractable pain: Plan: - As above (3) Depression: Plan: Due to diagnosis and life circumstances. Stable affect on admission. - Could consider behavioral health consult if this becomes overt (4) Seizure-like activity: Plan: Prior hx of non-epileptic seizures. - Monitor (5) DVT prophylaxis: Plan: High VTE risk given her sickle cell. -cont. Lovenox 40 mg SQ daily DVT ppx: lovenox FEN/GI: regular Code Status: full Dispo: med surg Admission and Anticipated Discharge Date Admission Date: October 13, 2021 Supervising Physician Co-Signing Physician Notes I personally examined the patient and verified all amaro points of history and exam, discussed case, and agree with decision making with Dr Bailey some dizziness Impression and plan Sickle cell anemia, crisis Pain control -continue current care overall - will give a 1x dose of demerol at equivalent dose to look for ?any more/less dizziness after this than morphine - if better then change, if not stay the same Continue hydration was transfused 1 unit during this hospital stay Depression supportive care Continue home medications Subjective Patient seen at bedside this morning. Very tired. Did not sleep well last night due to pain. Wants to continue current course. No BM yet. Denies chest pain, SOB, N/V, headache. Review of Systems Review of Systems: All systems reviewed & are unremarkable except as noted in HPI & below Physical Exam Physical Exam: Constitutional: in no acute distress, pleasant HEENT: No scleral injection or discharge. Moist mucous membranes. Neck: Supple without lymphadenopathy or thyromegaly. Trachea midline. Lungs: CTAB with good effort. Cardiac: RRR. No murmurs. Abdomen: +BS. Soft, nondistended.Mild diffuse tenderness. No guarding. No hepatosplenomegaly. Results & Data Results & Data ([facility]) Vital Signs (Past 12 Hours) Vital Signs Temp Pulse Resp BP Pulse Ox O2 Del Method 10/16/21 22:29 37.1 C 70 14 102/62 98 Room Air Laboratory Results 10/17/21 10/17/21 Range/Units 07:55 07:55 Hgb 9.0 L (12.0-16.0) g/dl Hct 24.8 L (34.1-44.9) % Magnesium 1.6 L (1.7-2.4) mg/dl Resident Activity Tracking Resident Involvement: Resident Care Provided Care Provided: Adult Hospital Medicine (1) Sickle cell anemia Sickle-cell associated disorders: with unspecified crisis Qualified Code(s): D57.00 - Hb-SS disease with crisis, unspecified
[2021-10-17] MEDS ORDERED: MoRPHine SULFATE 2 MG/ML CARP ONE (08:20)
[2021-10-17] MEDS ORDERED: MoRPHine SULFATE 4 MG/ML 1 ML CARP\\VIAL ONE (08:20)
[2021-10-17] MEDS: HYDROXYUREA 500 MG CAP PO SCH ×2 (08:29→21:30)
[2021-10-17 08:30] LABS: Hematocrit (blood only) 24.8 % (34.1-44.9)
[2021-10-17] MEDS: FOLIC ACID 1 MG TAB PO SCH (08:30)
[2021-10-17] MEDS: POLYETHYLENE (MIRALAX) 17 GM PACK PO SCH (08:34)
[2021-10-17] MEDS: MAGNESIUM SULFATE / D5W 1 GM/100 ML BAG IV SCH ×2 (09:27→11:38)
--- NOTE | 2021-10-17 18:28 | Billing Data ---
Date of Service October 17, 2021 Coding Level of Care Code 68782 Subseq Hosp Care Lvl 3
[2021-10-17] MEDS ORDERED: MEPERIDINE HCL 25 MG/ML CARP/VIAL IV ONE (18:30)
[2021-10-17] MEDS: DOCUSATE SODIUM 100 MG CAP PO SCH (21:29)
[2021-10-17] MEDS: ENOXAPARIN INJ 40 MG/0.4 ML SYR SQ SCH (21:30)
[2021-10-17] MEDS ORDERED: MEPERIDINE HCL 50 MG/ML CARP IV ONE (21:41)
[2021-10-18] MEDS: MoRPHine SULFATE 10 MG/ML CARP/VIAL IV PRN ×4 (02:11→23:09)
[2021-10-18 08:22] LABS: Hemoglobin 8.9 g/dl (12.0-16.0)
[2021-10-18] MEDS: SODIUM CHLORIDE 0.45 % 1,000 ML IV SCH ×2 (08:26→18:29)
[2021-10-18 08:48] LABS: Anion Gap 5 (3-11); BUN Creatinine Ratio 17.9 (10-20); Blood Urea Nitrogen 7 mg/dl (6-23); Calcium 9.2 mg/dl (8.5-10.1); Carbon Dioxide 27 mmol/L (21-32); Chloride 105 mmol/L (98-107); Est GFR (African American) > 150.0 ml/min; Glucose 86 mg/dl (70-99(Fasting)); Magnesium 1.5 mg/dl (1.7-2.4); Potassium 3.8 mmol/L (3.5-5.1); Sodium 137 mmol/L (136-145)
[2021-10-18] MEDS: CHECK fentaNYL PATCH PLACEMENT SCH ×3 (08:51→23:11)
[2021-10-18] MEDS: HYDROXYUREA 500 MG CAP PO SCH ×2 (08:51→21:17)
[2021-10-18] MEDS: DOCUSATE SODIUM 100 MG CAP PO SCH ×2 (08:51→21:17)
[2021-10-18] MEDS: POLYETHYLENE (MIRALAX) 17 GM PACK PO SCH (08:51)
[2021-10-18] MEDS: FOLIC ACID 1 MG TAB PO SCH (08:51)
[2021-10-18] MEDS: MAGNESIUM SULFATE / D5W 1 GM/100 ML BAG IV SCH ×3 (09:55→13:52)
[2021-10-18] MEDS ORDERED: MAGNESIUM HYDROXIDE SUSP 30 ML UDC PO ONE (10:36)
--- NOTE | 2021-10-18 11:17 | Hospitalist Progress Note ---
Date of Service October 18, 2021 Assessment & Plan (1) Sickle cell anemia: Plan: Follows with [facility]. Has not seen a reception clerk in quite some time. - Cont. home hydroxyurea, fentanyl patch - cont. hypotonic IV fluids, zofran prn - Cont. IV morphine 6mg q3h prn, Demerol 50mg x1 given last night helped. Given another 25mg IV Demerol this afternoon, cont. to monitor pain and dizziness. - Spoke with hematology (Dr. Cueto) who would be willing to see pt as an outpati ent. Pt agrees with plan. - Incentive spirometer prn to prevent acute chest syndrome - Hgb 8.6 s/p 1 unit blood (10/15), stable, monitor - PT/OT (2) Intractable pain: Plan: - As above (3) Depression: Plan: Due to diagnosis and life circumstances. Stable affect on admission. - Could consider behavioral health consult if this becomes overt (4) Seizure-like activity: Plan: Prior hx of non-epileptic seizures. - Monitor (5) DVT prophylaxis: Plan: High VTE risk given her sickle cell. - cont. Lovenox 40 mg SQ daily (6) Constipation: Plan: -likely secondary to pain and opioid use -miralax daily, milk of mag prn DVT ppx: lovenox FEN/GI: regular Code Status: full Dispo: med surg Plan Patient seen and examined, chart reviewed, case discussed with Neymar Bailey and I agree with the assessment and plan as above except as otherwise noted Labs and images reviewed Seen at the bedside today. She reports her pain is still a 7/10, sometimes an 8. Tolerable to her would be less than 5. She is not sure if the Demerol made her dizzy or not last night, continues to feel generally dizzy with morphine. Reports she would like to get out of the hospital as soon as possible, and is frustrating that her pain is still preventing this. On exam lungs are clear without evidence of pulmonary edema. Heart rate is regular. No scleral icterus. Vision and hearing grossly intact Sickle cell anemia Continues to have inadequately controlled pain. Analgesics have been limited by dizziness. Improved but not resolved with morphine. Fluids continued, no sign of fluid overload on exam today Hemoglobin remained stable Will have outpatient follow-up with hematology Due to difficulty with dizziness We will trial an additional dose of Demerol to see if this produces equal analgesic effect without dizziness.This must be monitored extremely carefully, and has an increased risk of neurotoxicity and respiratory suppression which patient is aware. Also note that due to prolonged use in the setting of sickle crisis well maturity and has a short half-life, drug metabolites have half-life is up to 30 hours and are impaired if renal function should drop increasing risk of delayed buildup. Goal for discharge is to obtain adequate control of pain to a scale of 5 or less for patient with conversion to reasonable home pain, currently last NEON TUBE PUMPER regimen Fentanyl 12 mcg patch with morphine 15 mg p.o. every 8 hours for breakthrough Hypomagnesemiarepleted IV, repeat in morning and continue p.o. repletion if low Constipation: Continue bowel regimen Admission and Anticipated Discharge Date Admission Date: October 13, 2021 Subjective Patient seen at bedside this morning. Given dose of demerol last night which helped with dizziness and some of the pain. Slept well. No BM yet. Denies chest pain, SOB, N/V, headache. Review of Systems Review of Systems: All systems reviewed & are unremarkable except as noted in HPI & below Physical Exam Physical Exam: Constitutional: in no acute distress, pleasant HEENT: No scleral injection or discharge.Moist mucous membranes. Neck: Supple without lymphadenopathy or thyromegaly. Trachea midline. Lungs: CTAB with good effort. Cardiac: RRR. No murmurs. Abdomen: +BS. Soft, nondistended.Mild diffuse tenderness. No guarding. No hepatosplenomegaly. Results & Data Results & Data ([facility]) Vital Signs (Past 12 Hours) Vital Signs Temp Pulse Resp BP Pulse Ox O2 Del Method 10/18/21 07:40 37 C 67 18 98/63 L 98 Room Air Laboratory Results 10/18/21 10/18/21 Range/Units 07:56 07:56 Hgb 8.9 L (12.0-16.0) g/dl Hct 25.0 L (34.1-44.9) % Sodium 137 (136-145) mmol/L Potassium 3.8 (3.5-5.1) mmol/L Chloride 105 (98-107) mmol/L Carbon Dioxide 27 (21-32) mmol/L Anion Gap 5 (3-11) BUN 7 (6-23) mg/dl Creatinine 0.39 L (0.6-1.2) mg/dl Est Cr Clr Drug Dosing 210.0 ml/min Est GFR ( Amer) > 150.0 ml/min Est GFR (Non-Af Amer) 148.0 ml/min BUN/Creatinine Ratio 17.9 (10-20) Glucose 86 (70-99(Fasting)) mg/dl Calcium 9.2 (8.5-10.1) mg/dl Magnesium 1.5 L (1.7-2.4) mg/dl Resident Activity Tracking Resident Involvement: Resident Care Provided Care Provided: Adult [facility] Medicine (1) Sickle cell anemia Sickle-cell associated disorders: with unspecified crisis Qualified Code(s): D57.00 - Hb-SS disease with crisis, unspecified
[2021-10-18] MEDS ORDERED: MEPERIDINE HCL 25 MG/ML CARP/VIAL IV ONE (14:27)
--- NOTE | 2021-10-18 18:20 | Billing Data ---
Date of Service October 18, 2021 Coding Level of Care Code 13300 Subseq Hosp Care Lvl 2
[2021-10-18] MEDS ORDERED: MoRPHine SULFATE 2 MG/ML CARP ONE (19:46)
[2021-10-18] MEDS ORDERED: MoRPHine SULFATE 4 MG/ML 1 ML CARP\\VIAL ONE (19:47)
[2021-10-18] MEDS: ENOXAPARIN INJ 40 MG/0.4 ML SYR SQ SCH ×2 (21:18→21:20)
[2021-10-19] MEDS: SODIUM CHLORIDE 0.45 % 1,000 ML IV SCH ×3 (00:05→21:53)
[2021-10-19] MEDS: MoRPHine SULFATE 10 MG/ML CARP/VIAL IV PRN ×6 (02:08→22:37)
[2021-10-19 07:17] LABS: Hematocrit (blood only) 24.4 % (34.1-44.9); Hemoglobin 8.8 g/dl (12.0-16.0)
[2021-10-19] MEDS: CHECK fentaNYL PATCH PLACEMENT SCH ×3 (08:41→23:24)
[2021-10-19] MEDS: HYDROXYUREA 500 MG CAP PO SCH ×2 (08:46→21:47)
[2021-10-19] MEDS: FOLIC ACID 1 MG TAB PO SCH (08:47)
[2021-10-19] MEDS: POLYETHYLENE (MIRALAX) 17 GM PACK PO SCH (08:48)
[2021-10-19] MEDS: DOCUSATE SODIUM 100 MG CAP PO SCH ×2 (08:48→21:47)
--- NOTE | 2021-10-19 17:10 | Hospitalist Progress Note ---
Date of Service October 19, 2021 Assessment & Plan (1) Sickle cell anemia: Plan: Follows with [facility]. Has not seen a branch operations coordinator in quite some time. - Cont. home hydroxyurea, fentanyl patch - cont. hypotonic IV fluids, zofran prn - Cont. IV morphine 6mg q3h prn for now. - Demerol 50mg x1 (10/17). Given another 25mg IV x1 (10/18). Half dose of Demerol did not control pain but did improve dizziness, however, risks of neurotoxicity outweigh benefits so will avoid termite treater helper use. - Spoke with hematology (Dr. Cueto) who would be willing to see pt as an outpatient. Pt agrees with plan. - Incentive spirometer prn to prevent acute chest syndrome - Hgb 8.6 s/p 1 unit blood (10/15), stable, monitor - PT/OT (2) Intractable pain: Plan: - As above (3) Depression: Plan: Due to diagnosis and life circumstances. Stable affect on admission. - Could consider behavioral health consult if this becomes overt (4) Seizure-like activity: Plan: Prior hx of non-epileptic seizures. - Monitor (5) DVT prophylaxis: Plan: High VTE risk given her sickle cell. - cont. Lovenox 40 mg SQ daily (6) Constipation: Plan: -likely secondary to pain and opioid use -miralax daily, milk of mag prn DVT ppx: lovenox FEN/GI: regular Code Status: full Dispo: med surg Admission and Anticipated Discharge Date Admission Date: October 13, 2021 Supervising Physician Co-Signing Physician Notes Patient seen and examined, chart reviewed, case discussed with Neymar Bailey and I agree with the assessment and plan as above except as otherwise noted Labs and images reviewed James is seen at the bedside. She reports she continues to still have acute pain above her normal tolerable level at least 6-7. Discussed various treatment options at the bedside. Given her need for prolonged courses of narcotics and the high risk of neurotoxicity for Demerol discussed that while this may not have made her dizzy would not recommend using this at this time. She is agreeable to this. She feels that she would like to be a little bit more aggressive to help get through her pain races faster, but is also hesitant to go up and is not sure if she needs it. Discussed various options including moving to a as needed regimen, switching to a SEED DISTRICT SALES MANAGER, or slightly increasing her morphine dose. She feels that she does not need this yet but will think about it, and would prefer to stay with the current management for now. At bedside lungs are clear, heart rate is regular, skin is warm and dry. She is having no chest pain, chest pressure or shortness of breath. Pain is mostly in her shoulder. Globin is stable. Subjective Patient seen at bedside this morning. Pain still not controlled. Continues to have some dizziness with IV morphine. Did have BM last night. Denies chest pain, SOB, N/V, headache. Review of Systems Review of Systems: All systems reviewed & are unremarkable except as noted in HPI & below Physical Exam Physical Exam: Constitutional: in no acute distress, pleasant HEENT: No scleral injection or discharge.Moist mucous membranes. Neck: Supple without lymphadenopathy or thyromegaly. Trachea midline. Lungs: CTAB with good effort. Cardiac: RRR. No murmurs. Abdomen: +BS. Soft, nondistended.Mild diffuse tenderness. No guarding. No hepatosplenomegaly. Results & Data Results & Data ([facility]) Vital Signs (Past 12 Hours) Vital Signs Temp Pulse Resp BP Pulse Ox O2 Del Method 10/19/21 16:00 36.9 C 59 L 18 92/53 L 98 Room Air 10/19/21 07:40 36.6 C 60 18 99/56 L 99 Room Air Laboratory Results 10/19/21 10/19/21 Range/Units 06:51 06:51 Hgb 8.8 L (12.0-16.0) g/dl Hct 24.4 L (34.1-44.9) % Magnesium 1.7 (1.7-2.4) mg/dl Resident Activity Tracking Resident Involvement: Resident Care Provided Care Provided: Adult Hospital Medicine (1) Sickle cell anemia Sickle-cell associated disorders: with unspecified crisis Qualified Code(s): D57.00 - Hb-SS disease with crisis, unspecified
--- NOTE | 2021-10-19 17:16 | Billing Data ---
Date of Service October 19, 2021 Coding Level of Care Code 00011 Subseq Hosp Care Lvl 2
[2021-10-19] MEDS: fentaNYL 12 MCG/HR TDSY TD SCH (18:04)
[2021-10-19] MEDS: ENOXAPARIN INJ 40 MG/0.4 ML SYR SQ SCH (21:46)
[2021-10-19] MEDS: MAGNESIUM HYDROXIDE SUSP 30 ML UDC PO PRN (21:51)
[2021-10-20] MEDS: MoRPHine SULFATE 10 MG/ML CARP/VIAL IV PRN ×3 (02:00→09:30)
[2021-10-20] MEDS: SODIUM CHLORIDE 0.45 % 1,000 ML IV SCH ×2 (05:42→15:28)
[2021-10-20] MEDS: POLYETHYLENE (MIRALAX) 17 GM PACK PO SCH (09:23)
[2021-10-20] MEDS: HYDROXYUREA 500 MG CAP PO SCH ×2 (09:28→21:13)
[2021-10-20] MEDS: MAGNESIUM HYDROXIDE SUSP 30 ML UDC PO PRN ×2 (09:28→21:12)
[2021-10-20] MEDS: FOLIC ACID 1 MG TAB PO SCH (09:28)
[2021-10-20] MEDS: CHECK fentaNYL PATCH PLACEMENT SCH ×2 (09:29→15:28)
[2021-10-20] MEDS: DOCUSATE SODIUM 100 MG CAP PO SCH ×2 (09:29→21:12)
[2021-10-20 10:53] LABS: Hematocrit (blood only) 25.4 % (34.1-44.9)
[2021-10-20 11:19] LABS: Anion Gap 7 (3-11); BUN Creatinine Ratio 17.9 (10-20); Blood Urea Nitrogen 7 mg/dl (6-23); Calcium 9.6 mg/dl (8.5-10.1); Carbon Dioxide 28 mmol/L (21-32); Chloride 103 mmol/L (98-107); Est GFR (African American) > 150.0 ml/min; Glucose 85 mg/dl (70-99(Fasting)); Magnesium 1.9 mg/dl (1.7-2.4); Potassium 3.7 mmol/L (3.5-5.1); Sodium 138 mmol/L (136-145)
[2021-10-20] MEDS: HYDROmorphone INJ 1 MG/ML SYRINGE IV PRN ×3 (13:27→21:13)
--- NOTE | 2021-10-20 13:42 | Discharge Summary ---
Date of Service October 20, 2021 Admission HPI Per Admitting Provider 21yo F w/ hx of sickle cell who presents with pain crisis. Has unfortunately not been able to follow up with PCP in last few months as she reports her usual PCP has been on other rotations and been unavailable. Patient reports that her pain started to escalate 2-3 days ago. She reports she uses her fentanyl patch and essentially takes her breakthrough morphine as standing, and therefore has nothing else to treat her pain with. The pain this time around is in the lower back and right knee. Denies shortness of breath, chest pain, fevers/chills, other symptoms. Discharge Exam Constitutional: in no acute distress, pleasant HEENT: No scleral injection or discharge.Moist mucous membranes. Neck: Supple without lymphadenopathy or thyromegaly. Trachea midline. Lungs: CTAB with good effort. Cardiac: RRR. No murmurs. Abdomen: +BS. Soft, nondistended.Mild diffuse tenderness. No guarding. No hepatosplenomegaly. Discharge Data Allergies Allergy/AdvReac Type Severity Reaction Status Date / Time ekg electrodes Allergy Intermediate Blister Uncoded 10/13/21 14:57 Consultations 10/13/21 14:24 ED Decision to Admit Stat Hospital Course (1) Sickle cell anemia: Follows with [facility]. Has not seen a bingo usher in quite some time. - Cont. home hydroxyurea, fentanyl patch - cont. hypotonic IV fluids, zofran prn - Cont. IV morphine 6mg q3h prn for now. - Demerol 50mg x1 (10/17). Given another 25mg IV x1 (10/18). Half dose of Demerol did not control pain but did improve dizziness, however, risks of neurotoxicity outweigh benefits so will avoid group home use. - Spoke with hematology (Dr. Cueto) who would be willing to see pt as an outpatient. Pt agrees with plan. - Incentive spirometer prn to prevent acute chest syndrome - Hgb 8.6 s/p 1 unit blood (10/15), stable, monitor - PT/OT (2) Intractable pain: - As above (3) Depression: Due to diagnosis and life circumstances. Stable affect on admission. - Could consider behavioral health consult if this becomes overt (4) Seizure-like activity: Prior hx of non-epileptic seizures. - Monitor (5) DVT prophylaxis: High VTE risk given her sickle cell. - cont. Lovenox 40 mg SQ daily (6) Constipation: -likely secondary to pain and opioid use -miralax daily, milk of mag prn DVT ppx: lovenox FEN/GI: regular Code Status: full Dispo: med surg Discharge Plan Discharge Items Reason For Visit: Generalized Pain Condition on Discharge: Good Follow-up/Referrals: [facility] [Primary Care Provider] - Medications and DC Order Prescriptions: No Action polyethylene glycol 3350 17 gram/dose powder 17 g PO DAILY PRN (Reason: Constipation) cholecalciferol (vitamin D3) [Vitamin D3] 25 mcg (1,000 unit) Tablet 25 mcg PO DAILY morphine 15 mg tablet 15 mg PO Q8H PRN (Reason: pain) Qty: 90 0RF ondansetron HCl 4 mg tablet 4 mg PO Q8 PRN (Reason: nausea and vomiting) Qty: 15 0RF hydroxyurea 500 mg capsule 1,000 mg PO BID folic acid 1 mg Tablet 2 mg PO DAILY fentanyl 12 mcg/hr Patch 72 Hour 12 mcg transdermal Q3D Qty: 0 0RF naloxone [Narcan] 4 mg/actuation spray,non-aerosol 4 mg INTRANASAL UD PRN (Reason: opiod overdose) Admission Data Admit Date/Time: 10/13/21 15:21 Attending Provider: Juan Alberto Cunningham Admit Provider: Cj Elias Primary Care Provider: [facility] Other Providers: Cj Elias
--- NOTE | 2021-10-20 14:37 | Hospitalist Progress Note ---
Date of Service October 20, 2021 Assessment & Plan (1) Sickle cell anemia: Plan: 21yo F w/ hx of sickle cell who presents with pain crisis. Has unfortunately not been able to follow up with PCP in last few months as she reports her usual PCP has been on other rotations and been unavailable. Sickle Cell Crisis Follows with [facility]. Has not seen a manufacturers agent in quite some time. - Cont. home hydroxyurea, fentanyl patch - cont. hypotonic IV fluids, zofran prn - Pain regimen: - home regimen: fentanyl patch q3d and po morphine 15mg for breakthrough - Demerol 50mg x1 (10/17). Given another 25mg IV x1 (10/18). Half dose of Demerol did not control pain but did improve dizziness, however, risks of neurotoxicity outweigh benefits so will avoid ferry terminal agent use. - (10/20)D/c'd IV morphine 6mg q3h prn, was not controlling pain and causing dizziness - Gave several options for pain control including MANAGER AUDIO, increasing IV morphine, and switching to Dilaudid. Although I believe she would greatly benefit from a MANAGER AUDIO, this was declined for now. Opted to switch to Dilaudid instead. Will begin Dilaudid 1mg q3h. - Spoke with hematology (Dr. Cueto) who would be willing to see pt as an outpatient. Pt agrees with plan. - Incentive spirometer prn to prevent acute chest syndrome - Hgb 8.6 s/p 1 unit blood (10/15), stable, monitor - PT/OT Intractable pain - As above Depression Due to diagnosis and life circumstances. Stable affect on admission. - Could consider behavioral health consult if this becomes overt Seizure-like activity Prior hx of non-epileptic seizures. - Monitor DVT prophylaxis High VTE risk given her sickle cell. - cont. Lovenox 40 mg SQ daily Constipation -likely secondary to pain and opioid use -miralax daily, milk of mag prn DVT ppx: lovenox FEN/GI: regular Code Status: full Dispo: med surg (2) Intractable pain: (3) Depression: (4) Seizure-like activity: (5) DVT prophylaxis: (6) Constipation: Admission and Anticipated Discharge Date Admission Date: October 13, 2021 Subjective Patient seen at bedside this morning. Pain still not controlled. Continues to have some dizziness with IV morphine. Did have BM yesterday. Denies chest pain, SOB, N/V, headache. Review of Systems Review of Systems: All systems reviewed & are unremarkable except as noted in HPI & below Physical Exam Physical Exam: Constitutional: in no acute distress, pleasant HEENT: No scleral injection or discharge.Moist mucous membranes. Neck: Supple without lymphadenopathy or thyromegaly. Trachea midline. Lungs: CTAB with good effort. Cardiac: RRR. No murmurs. Abdomen: +BS. Soft, nondistended.Mild diffuse tenderness. No guarding. No hepatosplenomegaly. Results & Data Results & Data ([facility]) Vital Signs (Past 12 Hours) Vital Signs Temp Pulse Resp BP Pulse Ox O2 Del Method 10/20/21 08:00 36.8 C 88 18 109/64 97 Room Air Laboratory Results 10/20/21 10/20/21 Range/Units 10:33 10:33 Hgb 9.0 L (12.0-16.0) g/dl Hct 25.4 L (34.1-44.9) % Sodium 138 (136-145) mmol/L Potassium 3.7 (3.5-5.1) mmol/L Chloride 103 (98-107) mmol/L Carbon Dioxide 28 (21-32) mmol/L Anion Gap 7 (3-11) BUN 7 (6-23) mg/dl Creatinine 0.39 L (0.6-1.2) mg/dl Est Cr Clr Drug Dosing 210.0 ml/min Est GFR ( Amer) > 150.0 ml/min Est GFR (Non-Af Amer) 148.0 ml/min BUN/Creatinine Ratio 17.9 (10-20) Glucose 85 (70-99(Fasting)) mg/dl Calcium 9.6 (8.5-10.1) mg/dl Magnesium 1.9 (1.7-2.4) mg/dl Resident Activity Tracking Resident Involvement: Resident Care Provided Care Provided: Adult Hospital Medicine (1) Sickle cell anemia Sickle-cell associated disorders: with unspecified crisis Qualified Code(s): D57.00 - Hb-SS disease with crisis, unspecified
[2021-10-20] MEDS: ENOXAPARIN INJ 40 MG/0.4 ML SYR SQ SCH (21:11)
[2021-10-21] MEDS: HYDROmorphone INJ 1 MG/ML SYRINGE IV PRN ×7 (00:25→22:26)
[2021-10-21] MEDS: SODIUM CHLORIDE 0.45 % 1,000 ML IV SCH ×3 (00:31→21:00)
[2021-10-21] MEDS: CHECK fentaNYL PATCH PLACEMENT SCH ×4 (02:39→23:09)
[2021-10-21] MEDS: DOCUSATE SODIUM 100 MG CAP PO SCH ×2 (09:44→20:55)
[2021-10-21] MEDS: HYDROXYUREA 500 MG CAP PO SCH ×2 (09:44→20:56)
[2021-10-21] MEDS: POLYETHYLENE (MIRALAX) 17 GM PACK PO SCH (09:44)
[2021-10-21] MEDS: FOLIC ACID 1 MG TAB PO SCH (09:44)
--- NOTE | 2021-10-21 13:08 | Hospitalist Progress Note ---
Date of Service October 21, 2021 Assessment & Plan (1) Sickle cell anemia: Plan: 21 yo F with PMHx of sickle cell who presents with pain crisis. Sickle Cell Crisis Follows with [facility]. Has not seen a machine learning intern in quite some time. - Cont. home hydroxyurea, fentanyl patch - cont. hypotonic IV fluids, zofran prn - Pain regimen: - home regimen: fentanyl patch q3d and po morphine 15mg for breakthrough - Demerol 50mg x1 (10/17). Given another 25mg IV x1 (10/18). Half dose of Demerol did not control pain but did improve dizziness, however, risks of neurotoxicity outweigh benefits so will avoid long-term use. - (10/20)D/c'd IV morphine 6mg q3h prn, was not controlling pain and causing dizziness - Gave several options for pain control including DRAFTSPERSON, increasing IV morphine, and switching to Dilaudid. Although I believe she would greatly b enefit from a DRAFTSPERSON, this was declined for now. Opted to switch to Dilaudid instead. Continue Dilaudid 1mg q3h. Pain moderately controlled. For continued dizziness, will try scheduled meclizine and zofran. - Spoke with hematology (Dr. Cueto) who would be willing to see pt as an outpatient. Pt agrees with plan. - Incentive spirometer prn to prevent acute chest syndrome - Hgb 8.6 s/p 1 unit blood (10/15), stable, monitor - PT/OT Intractable pain - As above Depression Due to diagnosis and life circumstances. Stable affect on admission. - Could consider behavioral health consult if this becomes overt Seizure-like activity Prior hx of non-epileptic seizures. - Monitor DVT prophylaxis High VTE risk given her sickle cell. - cont. Lovenox 40 mg SQ daily Constipation -likely secondary to pain and opioid use -miralax daily, milk of mag prn DVT ppx: lovenox FEN/GI: regular Code Status: full Dispo: med surg (2) Intractable pain: (3) Depression: (4) Seizure-like activity: (5) DVT prophylaxis: (6) Constipation: Admission and Anticipated Discharge Date Admission Date: October 13, 2021 Supervising Physician Co-Signing Physician Notes Patient seen and examined, chart reviewed, case discussed with Neymar Bailey and I agree with the assessment and plan as above except as otherwise noted Labs and images reviewed Lightheadedness and dizziness improved with meclizine, continued BID. Improved pain today for the first time, she feels she is dropping now down to a 4/5. No chest pain, chest pressure, shortness of breath. Does continue with some lightheadedness and dizziness but this is improved as noted. On exam lungs are clear, heart rate is regular, skin is warm and dry. Continued on fluids, meclizine, and hydromorphone converted at near equal analgesic dosing from morphine previously. Ideally we will down titrate as crisis passes and discharge on DATASTAGE CONSULTANT fentanyl patch and no more than 5 days of breakthrough narcotic Subjective Patient seen at bedside this morning. Started on IV Dilaudid 1mg q3h yesterday. Moderate pain control lasting about 3.5 hours. Dizziness still present and more prominent with some nausea. Denies chest pain, SOB, vomiting, headache. Review of Systems Review of Systems: All systems reviewed & are unremarkable except as noted in HPI & below Physical Exam Physical Exam: Constitutional: in no acute distress, pleasant HEENT: No scleral injection or discharge.Moist mucous membranes. Neck: Supple without lymphadenopathy or thyromegaly. Trachea midline. Lungs: CTAB with good effort. Cardiac: RRR. No murmurs. Abdomen: +BS. Soft, nondistended.Mild diffuse tenderness. No guarding. No hepatosplenomegaly. Results & Data Results & Data ([facility]) Vital Signs (Past 12 Hours) Vital Signs Temp Pulse Resp BP Pulse Ox O2 Del Method 10/21/21 07:41 36.5 C 56 L 16 93/55 L 98 Room Air Resident Activity Tracking Resident Involvement: Resident Care Provided Care Provided: Adult Hospital Medicine (1) Sickle cell anemia Sickle-cell associated disorders: with unspecified crisis Qualified Code(s): D57.00 - Hb-SS disease with crisis, unspecified
[2021-10-21] MEDS: MECLIZINE HCL 25 MG TAB PO SCH ×2 (13:20→20:54)
[2021-10-21] MEDS: ONDANSETRON INJ 2 MG/ML 2 ML VIAL IV SCH ×2 (13:20→18:21)
--- NOTE | 2021-10-21 15:20 | Billing Data ---
Date of Service October 21, 2021 Coding Level of Care Code 24456 Subseq Hosp Care Lvl 2
[2021-10-21] MEDS: ENOXAPARIN INJ 40 MG/0.4 ML SYR SQ SCH (18:21)
[2021-10-22] MEDS: ONDANSETRON INJ 2 MG/ML 2 ML VIAL IV SCH ×4 (01:44→18:03)
[2021-10-22] MEDS: HYDROmorphone INJ 1 MG/ML SYRINGE IV PRN ×6 (01:44→21:13)
[2021-10-22] MEDS: SODIUM CHLORIDE 0.45 % 1,000 ML IV SCH ×2 (06:06→16:26)
[2021-10-22 07:30] LABS: Hemoglobin 8.4 g/dl (12.0-16.0)
[2021-10-22 07:51] LABS: Anion Gap 4 (3-11); BUN Creatinine Ratio 20.9 (10-20); Blood Urea Nitrogen 9 mg/dl (6-23); Calcium 9.3 mg/dl (8.5-10.1); Carbon Dioxide 29 mmol/L (21-32); Chloride 104 mmol/L (98-107); Creatinine Clr Calc Pharmacy 190.5 ml/min; Est GFR (African American) > 150.0 ml/min; Est GFR (Non-African American) 143.4 ml/min; Glucose 90 mg/dl (70-99(Fasting)); Potassium 3.9 mmol/L (3.5-5.1); Sodium 137 mmol/L (136-145)
[2021-10-22] MEDS: MECLIZINE HCL 25 MG TAB PO SCH ×3 (08:24→22:03)
[2021-10-22] MEDS: DOCUSATE SODIUM 100 MG CAP PO SCH ×2 (08:24→22:03)
[2021-10-22] MEDS: FOLIC ACID 1 MG TAB PO SCH (08:24)
[2021-10-22] MEDS: CHECK fentaNYL PATCH PLACEMENT SCH ×2 (08:25→16:26)
[2021-10-22] MEDS: POLYETHYLENE (MIRALAX) 17 GM PACK PO SCH (08:25)
[2021-10-22] MEDS: HYDROXYUREA 500 MG CAP PO SCH ×2 (08:25→22:03)
--- NOTE | 2021-10-22 14:47 | Hospitalist Progress Note ---
Date of Service October 22, 2021 Assessment & Plan (1) Sickle cell anemia: Plan: 21 yo F with PMHx of sickle cell who presents with pain crisis. Sickle Cell Crisis Follows with [facility]. Has not seen a ibm websphere portal developer in quite some time. - Cont. home hydroxyurea, fentanyl patch - cont. hypotonic IV fluids, zofran prn - Pain regimen: - home regimen: fentanyl patch q3d and po morphine 15mg for breakthrough - Demerol 50mg x1 (10/17). Given another 25mg IV x1 (10/18). Half dose of Demerol did not control pain but did improve dizziness, however, risks of neurotoxicity outweigh benefits so will avoid correction use. - (10/20)D/c'd IV morphine 6mg q3h prn, was not controlling pain and causing dizziness - Gave several options for pain control including HYDRAULIC PILE HAMMER OPERATOR, increasing IV morphine, and switching to Dilaudid. Although I believe she would greatly b enefit from a HYDRAULIC PILE HAMMER OPERATOR, this was declined for now. Opted to switch to Dilaudid instead. Continue Dilaudid 1mg q3h. Pain moderately controlled. Cont. meclizine (increased BID to TID) and zofran scheduled for dizziness. - Spoke with hematology (Dr. Cueto) who would be willing to see pt as an outpatient. Pt agrees with plan. - Incentive spirometer prn to prevent acute chest syndrome - Hgb 8.6 s/p 1 unit blood (10/15), stable, monitor - PT/OT Intractable pain - As above Depression Due to diagnosis and life circumstances. Stable affect on admission. - Could consider behavioral health consult if this becomes overt Seizure-like activity Prior hx of non-epileptic seizures. - Monitor DVT prophylaxis High VTE risk given her sickle cell. - cont. Lovenox 40 mg SQ daily Constipation -likely secondary to pain and opioid use -miralax daily, milk of mag prn DVT ppx: lovenox FEN/GI: regular Code Status: full Dispo: med surg (2) Intractable pain: (3) Depression: (4) Seizure-like activity: (5) DVT prophylaxis: (6) Constipation: Admission and Anticipated Discharge Date Admission Date: October 13, 2021 Supervising Physician Co-Signing Physician Notes Attending attestation Pt seen and examined in concert with Dr. Bailey. In agreement with the documented findings as noted in the resident documentation with any exceptions or additions as noted here. Stability to mild improvement in pain on current pain medication regimen with patient declining escalation for improved control at this time. Lightheadedness somewhat improved w/ meclizine. On examination, S1/S2 nl RRR no MCG. CTAB. Abd NT/ND BS+ve. Nursing notes, VS reviewed. Sickle cell disease with pain crisis w/ dizziness - continue meclizine, increase to TID and monitor response. Pain control as noted with taper when tolerated. Continue IVF and encourage PO intake. Else see resident documentation as noted. Subjective Patient seen at bedside this morning. Pain moderately controlled. Still some mild dizziness but meclizine and zofran helping. Denies chest pain, SOB, vomiting, headache. Review of Systems Review of Systems: All systems reviewed & are unremarkable except as noted in HPI & below Physical Exam Physical Exam: Constitutional: in no acute distress, pleasant HEENT: No scleral injection or discharge.Moist mucous membranes. Neck: Supple without lymphadenopathy or thyromegaly. Trachea midline. Lungs: CTAB with good effort. Cardiac: RRR. No murmurs. Abdomen: +BS. Soft, nondistended.Mild diffuse tenderness. No guarding. No hepatosplenomegaly. Results & Data Results & Data ([facility]) Vital Signs (Past 12 Hours) Vital Signs Temp Pulse Resp BP Pulse Ox O2 Del Method 10/22/21 07:48 36.6 C 65 16 95/62 L 99 Room Air Laboratory Results 10/22/21 10/22/21 Range/Units 07:01 07:01 Hgb 8.4 L (12.0-16.0) g/dl Hct 24.0 L (34.1-44.9) % Sodium 137 (136-145) mmol/L Potassium 3.9 (3.5-5.1) mmol/L Chloride 104 (98-107) mmol/L Carbon Dioxide 29 (21-32) mmol/L Anion Gap 4 (3-11) BUN 9 (6-23) mg/dl Creatinine 0.43 L (0.6-1.2) mg/dl Est Cr Clr Drug Dosing 190.5 ml/min Est GFR ( Amer) > 150.0 ml/min Est GFR (Non-Af Amer) 143.4 ml/min BUN/Creatinine Ratio 20.9 H (10-20) Glucose 90 (70-99(Fasting)) mg/dl Calcium 9.3 (8.5-10.1) mg/dl Resident Activity Tracking Resident Involvement: Resident Care Provided Care Provided: Adult Hospital Medicine (1) Sickle cell anemia Sickle-cell associated disorders: with unspecified crisis Qualified Code(s): D57.00 - Hb-SS disease with crisis, unspecified
[2021-10-22] MEDS: fentaNYL 12 MCG/HR TDSY TD SCH (17:57)
[2021-10-22] MEDS: ENOXAPARIN INJ 40 MG/0.4 ML SYR SQ SCH (18:03)
[2021-10-22] MEDS: MAGNESIUM HYDROXIDE SUSP 30 ML UDC PO PRN (22:06)
[2021-10-23] MEDS: ONDANSETRON INJ 2 MG/ML 2 ML VIAL IV SCH ×5 (01:54→18:09)
[2021-10-23] MEDS: HYDROmorphone INJ 1 MG/ML SYRINGE IV PRN ×7 (02:07→23:22)
[2021-10-23] MEDS: SODIUM CHLORIDE 0.45 % 1,000 ML IV SCH ×3 (02:08→21:18)
[2021-10-23] MEDS: CHECK fentaNYL PATCH PLACEMENT SCH ×4 (02:12→23:25)
--- NOTE | 2021-10-23 06:52 | Hospitalist Progress Note ---
Date of Service October 23, 2021 Assessment & Plan (1) Sickle cell anemia: Plan: 21 yo F with PMHx of sickle cell who presents with pain crisis. Sickle Cell Crisis Follows with [facility]. Has not seen a fish warden in quite some time. - Cont. home hydroxyurea, fentanyl patch - cont. hypotonic IV fluids, zofran prn - Pain regimen: - home regimen: fentanyl patch q3d and po morphine 15mg for breakthrough - Demerol 50mg x1 (10/17). Given another 25mg IV x1 (10/18). Half dose of Demerol did not control pain but did improve dizziness, however, risks of neurotoxicity outweigh benefits so will avoid longterm use. - (10/20)D/c'd IV morphine 6mg q3h prn, was not controlling pain and causing dizziness - Gave several options for pain control including MECHANICAL ESTIMATOR, increasing IV morphine, and switching to Dilaudid. Although I believe she would greatly b enefit from a MECHANICAL ESTIMATOR, this was declined for now. Opted to switch to Dilaudid instead. Continue Dilaudid 1mg q3h. Pain moderately controlled. Cont. meclizine (increased BID to TID) and zofran scheduled for dizziness which is helping. - Spoke with hematology (Dr. Cueto) who would be willing to see pt as an outpatient. Pt agrees with plan. - Incentive spirometer prn to prevent acute chest syndrome - Hgb 8.6 s/p 1 unit blood (10/15), stable, monitor - PT/OT Intractable pain - As above Depression Due to diagnosis and life circumstances. Stable affect on admission. - Could consider behavioral health consult if this becomes overt Seizure-like activity Prior hx of non-epileptic seizures. - Monitor DVT prophylaxis High VTE risk given her sickle cell. - cont. Lovenox 40 mg SQ daily Constipation -likely secondary to pain and opioid use -miralax daily, milk of mag prn Itchiness -Benadryl prn DVT ppx: lovenox FEN/GI: regular Code Status: full Dispo: med surg (2) Intractable pain: (3) Depression: (4) Seizure-like activity: (5) DVT prophylaxis: (6) Constipation: Admission and Anticipated Discharge Date Admission Date: October 13, 2021 Supervising Physician Co-Signing Physician Notes Attending attestation Pt seen and examined in concert with Dr. Bailey. In agreement with the documented findings as noted in the resident documentation with any exceptions or additions as noted here. Control of dizziness w/ TID meclizine. Ongoing gradual improvement in pain on current pain medication regimen with patient interested in tapering when able. On examination, S1/S2 nl RRR no MCG. CTAB. Abd NT/ND BS+ve. Nursing notes, VS reviewed. Sickle cell disease with pain crisis w/ dizziness - continue meclizine TID. Pain control as noted with taper when tolerated. Continue IVF and encourage PO intake. Else see resident documentation as noted. Subjective Patient seen at bedside this morning. Pain moderately controlled, fentanyl patch replaced yesterday. Making progress. Increased meclizine frequency which helped with dizziness. Zofran helping. Denies chest pain, SOB, vomiting, headache. Review of Systems Review of Systems: All systems reviewed & are unremarkable except as noted in HPI & below Physical Exam Physical Exam: Constitutional: in no acute distress, pleasant HEENT: No scleral injection or discharge.Moist mucous membranes. Neck: Supple without lymphadenopathy or thyromegaly. Trachea midline. Lungs: CTAB with good effort. Cardiac: RRR. No murmurs. Abdomen: +BS. Soft, nondistended.Mild diffuse tenderness. No guarding. No hepatosplenomegaly. Results & Data Results & Data ([facility]) Vital Signs (Past 12 Hours) Vital Signs Temp Pulse Resp BP Pulse Ox O2 Del Method 10/22/21 22:52 36.9 C 72 16 97/60 L 100 Room Air Resident Activity Tracking Resident Involvement: Resident Care Provided Care Provided: Adult Hospital Medicine (1) Sickle cell anemia Sickle-cell associated disorders: with unspecified crisis Qualified Code(s): D57.00 - Hb-SS disease with crisis, unspecified
[2021-10-23] MEDS: MECLIZINE HCL 25 MG TAB PO SCH ×3 (07:50→21:11)
[2021-10-23] MEDS: HYDROXYUREA 500 MG CAP PO SCH ×2 (07:50→21:13)
[2021-10-23] MEDS: DOCUSATE SODIUM 100 MG CAP PO SCH ×2 (07:50→21:12)
[2021-10-23] MEDS: FOLIC ACID 1 MG TAB PO SCH (07:51)
[2021-10-23] MEDS: POLYETHYLENE (MIRALAX) 17 GM PACK PO SCH (07:51)
[2021-10-23] MEDS ORDERED: diphenhydrAMINE Capsule 25 MG CAP PO ONE (17:25)
[2021-10-23] MEDS: ENOXAPARIN INJ 40 MG/0.4 ML SYR SQ SCH (18:09)
[2021-10-23] MEDS: MAGNESIUM HYDROXIDE SUSP 30 ML UDC PO PRN (21:12)
[2021-10-24] MEDS: HYDROmorphone INJ 1 MG/ML SYRINGE IV PRN ×7 (02:23→21:53)
[2021-10-24] MEDS: ONDANSETRON INJ 2 MG/ML 2 ML VIAL IV SCH ×4 (02:23→18:38)
[2021-10-24] MEDS: SODIUM CHLORIDE 0.45 % 1,000 ML IV SCH ×3 (05:33→21:52)
--- NOTE | 2021-10-24 07:07 | Hospitalist Progress Note ---
Date of Service October 24, 2021 Assessment & Plan (1) Sickle cell anemia: Plan: 21 yo F with PMHx of sickle cell who presents with pain crisis. Sickle Cell Crisis Follows with [facility]. Has not seen a box toe maker in quite some time. - Cont. home hydroxyurea, fentanyl patch, zofran prn - Hypotonic IV fluids inc. to 150mls/hr to help with pain. - Pain regimen: - home regimen: fentanyl patch q3d and po morphine 15mg for breakthrough - Demerol 50mg x1 (10/17). Given another 25mg IV x1 (10/18). Half dose of Demerol did not control pain but did improve dizziness, however, risks of neurotoxicity outweigh benefits so will avoid long chain quiller tender use. - (10/20)D/c'd IV morphine 6mg q3h prn, was not controlling pain and causing dizziness - Gave several options for pain control including PERSONAL CONSULTANT, increasing IV morphine, and switching to Dilaudid. Although I believe she would greatly benefit from a PERSONAL CONSULTANT, this was declined for now. Opted to switch to Dilaudid instead. Continue Dilaudid 1mg q3h. Pain moderately controlled. Cont. meclizine (increased BID to TID) and zofran scheduled for dizziness which is helping. - Spoke with hematology (Dr. Cueto) who would be willing to see pt as an outpatient. Pt agrees with plan. - Incentive spirometer prn to prevent acute chest syndrome - Hgb 8.6 s/p 1 unit blood (10/15), stable, monitor - PT/OT Intractable pain - As above Depression Due to diagnosis and life circumstances. Stable affect on admission. - Could consider behavioral health consult if this becomes overt Seizure-like activity Prior hx of non-epileptic seizures. - Monitor DVT prophylaxis High VTE risk given her sickle cell. - cont. Lovenox 40 mg SQ daily Constipation -likely secondary to pain and opioid use -miralax daily, milk of mag prn Itchiness -Benadryl prn DVT ppx: lovenox FEN/GI: regular Code Status: full Dispo: med surg (2) Intractable pain: (3) Depression: (4) Seizure-like activity: (5) DVT prophylaxis: (6) Constipation: Admission and Anticipated Discharge Date Admission Date: October 13, 2021 Supervising Physician Co-Signing Physician Notes Attending attestation Pt seen and examined in concert with Dr. Bailey. In agreement with the documented findings as noted in the resident documentation with any exceptions or additions as noted here. Reporting dizziness well controlled at this time on meclizine. Reports increase diffuse pain associated with SCC, though noted as such while sleeping soundly to the point of difficulty waking. On examination, S1/S2 nl RRR no MCG. CTAB. Abd NT/ND BS+ve. Nursing notes, VS reviewed. Sickle cell disease with pain crisis w/ dizziness - continue meclizine TID. Pain control as noted with taper when tolerated. Restarted IVF as decreased hydration may be associated with worsened SCC and monitor. Encourage PO intake Else see resident documentation as noted. Subjective Patient seen at bedside this morning. Sleeping comfortably but when woken up pain not controlled. Denies chest pain, SOB, vomiting, headache. Review of Systems Review of Systems: All systems reviewed & are unremarkable except as noted in HPI & below Physical Exam Physical Exam: Constitutional: in no acute distress, pleasant HEENT: No scleral injection or discharge.Moist mucous membranes. Neck: Supple without lymphadenopathy or thyromegaly. Trachea midline. Lungs: CTAB with good effort. Cardiac: RRR. No murmurs. Abdomen: +BS. Soft, nondistended.Mild diffuse tenderness. No guarding. No hepatosplenomegaly. Results & Data Results & Data ([facility]) Vital Signs (Past 12 Hours) Vital Signs Temp Pulse BP Pulse Ox O2 Del Method 10/23/21 23:01 36.6 C 68 106/64 100 Room Air Resident Activity Tracking Resident Involvement: Resident Care Provided Care Provided: Adult Hospital Medicine (1) Sickle cell anemia Sickle-cell associated disorders: with unspecified crisis Qualified Code(s): D57.00 - Hb-SS disease with crisis, unspecified
[2021-10-24] MEDS: POLYETHYLENE (MIRALAX) 17 GM PACK PO SCH (07:56)
[2021-10-24] MEDS: CHECK fentaNYL PATCH PLACEMENT SCH ×2 (07:58→15:04)
[2021-10-24] MEDS: MECLIZINE HCL 25 MG TAB PO SCH ×3 (07:59→21:53)
[2021-10-24] MEDS: DOCUSATE SODIUM 100 MG CAP PO SCH ×2 (07:59→21:51)
[2021-10-24] MEDS: FOLIC ACID 1 MG TAB PO SCH (07:59)
[2021-10-24] MEDS: HYDROXYUREA 500 MG CAP PO SCH ×2 (08:00→21:52)
[2021-10-24] MEDS: ENOXAPARIN INJ 40 MG/0.4 ML SYR SQ SCH (18:37)
[2021-10-25] MEDS: ONDANSETRON INJ 2 MG/ML 2 ML VIAL IV SCH ×4 (00:57→18:34)
[2021-10-25] MEDS: HYDROmorphone INJ 1 MG/ML SYRINGE IV PRN ×8 (00:57→23:28)
[2021-10-25] MEDS: CHECK fentaNYL PATCH PLACEMENT SCH ×4 (01:01→23:28)
[2021-10-25] MEDS: SODIUM CHLORIDE 0.45 % 1,000 ML IV SCH ×3 (04:45→20:09)
--- NOTE | 2021-10-25 06:55 | Hospitalist Progress Note ---
Date of Service October 25, 2021 Assessment & Plan (1) Sickle cell anemia: Plan: 21 yo F with PMHx of sickle cell who presents with pain crisis. Sickle Cell Crisis Follows with [facility]. Has not seen a linux systems administrator in quite some time. - Cont. home hydroxyurea, fentanyl patch, zofran prn - Hypotonic IV fluids inc. to 150mls/hr to help with pain. - Pain regimen: - home regimen: fentanyl patch q3d and po morphine 15mg for breakthrough - Demerol 50mg x1 (10/17). Given another 25mg IV x1 (10/18). Half dose of Demerol did not control pain but did improve dizziness, however, risks of neurotoxicity outweigh benefits so will avoid terminal computer operator use. - (10/20)D/c'd IV morphine 6mg q3h prn, was not controlling pain and causing dizziness - Gave several options for pain control including ADMINISTRATIVE PROJECT COORDINATOR, increasing IV morphine, and switching to Dilaudid. Although I believe she would greatly benefit from a ADMINISTRATIVE PROJECT COORDINATOR, this was declined for now. Opted to switch to Dilaudid instead. Continue Dilaudid 1mg q3h. Pain moderately controlled. Cont. meclizine (increased BID to TID) and zofran scheduled for dizziness which is helping. - Spoke with hematology (Dr. Cueto) who would be willing to see pt as an outpatient. Pt agrees with plan. - Incentive spirometer prn to prevent acute chest syndrome - Hgb 8.6 s/p 1 unit blood (10/15), stable, monitor - PT/OT Intractable pain - As above Depression Due to diagnosis and life circumstances. Stable affect on admission. - Could consider behavioral health consult if this becomes overt Seizure-like activity Prior hx of non-epileptic seizures. - Monitor DVT prophylaxis High VTE risk given her sickle cell. - cont. Lovenox 40 mg SQ daily Constipation -likely secondary to pain and opioid use -miralax daily, milk of mag prn Itchiness -Benadryl prn DVT ppx: lovenox FEN/GI: regular Code Status: full Dispo: med surg (2) Intractable pain: (3) Depression: (4) Seizure-like activity: (5) DVT prophylaxis: (6) Constipation: Admission and Anticipated Discharge Date Admission Date: October 13, 2021 Supervising Physician Co-Signing Physician Notes Attending attestation Pt seen and examined in concert with Dr. Bailey. In agreement with the documented findings as noted in the resident documentation with any exceptions or additions as noted here. Dizziness well controlled at this time on meclizine. Reports improving diffuse pain associated with SCC on IVF. On examination, S1/S2 nl RRR no MCG. CTAB. Abd NT/ND BS+ve. Nursing notes, VS reviewed. Sickle cell disease with pain crisis w/ dizziness - continue meclizine TID. Pain control as noted with taper when tolerated. Restarted IVF as decreased hydration may be associated with worsened SCC and monitor. Encourage PO intake Else see resident documentation as noted. Subjective Patient seen at bedside this morning. Pain doing well. Not much dizziness. Thinks she is turning a corner. Denies chest pain, SOB, vomiting, headache. Review of Systems Review of Systems: All systems reviewed & are unremarkable except as noted in HPI & below Physical Exam Physical Exam: Constitutional: in no acute distress, pleasant HEENT: No scleral injection or discharge.Moist mucous membranes. Neck: Supple without lymphadenopathy or thyromegaly. Trachea midline. Lungs: CTAB with good effort. Cardiac: RRR. No murmurs. Abdomen: +BS. Soft, nondistended.Mild diffuse tenderness. No guarding. No hepatosplenomegaly. Results & Data Results & Data ([facility]) Vital Signs (Past 12 Hours) Vital Signs Temp Pulse Resp BP Pulse Ox O2 Del Method 10/24/21 21:50 Room Air 10/24/21 23:59 36.8 C 72 16 105/69 99 Room Air Laboratory Results 10/25/21 10/25/21 Range/Units 07:32 07:32 Hgb 8.0 L (12.0-16.0) g/dl Hct 22.8 L (34.1-44.9) % Sodium 137 (136-145) mmol/L Potassium 3.7 (3.5-5.1) mmol/L Chloride 104 (98-107) mmol/L Carbon Dioxide 29 (21-32) mmol/L Anion Gap 4 (3-11) BUN 5 L (6-23) mg/dl Creatinine 0.41 L (0.6-1.2) mg/dl Est Cr Clr Drug Dosing 199.8 ml/min Est GFR ( Amer) > 150.0 ml/min Est GFR (Non-Af Amer) 145.6 ml/min BUN/Creatinine Ratio 12.2 (10-20) Glucose 85 (70-99(Fasting)) mg/dl Calcium 9.3 (8.5-10.1) mg/dl Magnesium 1.4 L (1.7-2.4) mg/dl Resident Activity Tracking Resident Involvement: Resident Care Provided Care Provided: Adult [facility] Medicine (1) Sickle cell anemia Sickle-cell associated disorders: with unspecified crisis Qualified Code(s): D57.00 - Hb-SS disease with crisis, unspecified
[2021-10-25 07:51] LABS: Hematocrit (blood only) 22.8 % (34.1-44.9)
[2021-10-25] MEDS: POLYETHYLENE (MIRALAX) 17 GM PACK PO SCH (07:56)
[2021-10-25] MEDS: MECLIZINE HCL 25 MG TAB PO SCH ×3 (08:00→21:13)
[2021-10-25] MEDS: FOLIC ACID 1 MG TAB PO SCH (08:00)
[2021-10-25] MEDS: DOCUSATE SODIUM 100 MG CAP PO SCH ×2 (08:00→21:13)
[2021-10-25 08:27] LABS: Anion Gap 4 (3-11); BUN Creatinine Ratio 12.2 (10-20); Blood Urea Nitrogen 5 mg/dl (6-23); Calcium 9.3 mg/dl (8.5-10.1); Carbon Dioxide 29 mmol/L (21-32); Chloride 104 mmol/L (98-107); Creatinine Clr Calc Pharmacy 199.8 ml/min; Est GFR (African American) > 150.0 ml/min; Est GFR (Non-African American) 145.6 ml/min; Glucose 85 mg/dl (70-99(Fasting)); Magnesium 1.4 mg/dl (1.7-2.4); Potassium 3.7 mmol/L (3.5-5.1); Sodium 137 mmol/L (136-145)
[2021-10-25] MEDS: HYDROXYUREA 500 MG CAP PO SCH ×2 (09:01→21:13)
[2021-10-25] MEDS: MAGNESIUM SULFATE / D5W 1 GM/100 ML BAG IV SCH ×5 (09:23→17:06)
[2021-10-25] MEDS: diphenhydrAMINE Capsule 25 MG CAP PO PRN (10:05)
[2021-10-25] MEDS: fentaNYL 12 MCG/HR TDSY TD SCH (18:29)
[2021-10-25] MEDS: ENOXAPARIN INJ 40 MG/0.4 ML SYR SQ SCH (18:33)
[2021-10-25] MEDS: MAGNESIUM HYDROXIDE SUSP 30 ML UDC PO PRN (21:13)
[2021-10-26] MEDS: ONDANSETRON INJ 2 MG/ML 2 ML VIAL IV SCH ×4 (01:03→18:40)
[2021-10-26] MEDS: SODIUM CHLORIDE 0.45 % 1,000 ML IV SCH ×4 (02:44→23:18)
[2021-10-26] MEDS: HYDROmorphone INJ 1 MG/ML SYRINGE IV PRN ×7 (02:44→23:40)
--- NOTE | 2021-10-26 06:56 | Hospitalist Progress Note ---
Date of Service October 26, 2021 Assessment & Plan (1) Sickle cell anemia: Plan: 21 yo F with PMHx of sickle cell who presents with pain crisis. Sickle Cell Crisis Follows with [facility]. Has not seen a film processing supervisor in quite some time. - Cont. home hydroxyurea, fentanyl patch, zofran prn - Hypotonic IV fluids inc. to 150mls/hr to help with pain, cont. - Pain regimen: - home regimen: fentanyl patch q3d and po morphine 15mg for breakthrough - Demerol 50mg x1 (10/17). Given another 25mg IV x1 (10/18). Half dose of Demerol did not control pain but did improve dizziness, however, risks of neurotoxicity outweigh benefits so will avoid marine oil terminal superintendent use. - (10/20)D/c'd IV morphine 6mg q3h prn, was not controlling pain and causing dizziness - Gave several options for pain control including SCARFER, increasing IV morphine, and switching to Dilaudid. Although I believe she would greatly benefit from a SCARFER, this was declined earlier. Opted to switch to Dilaudid instead. Continue Dilaudid 1mg q3h. Pain well controlled. Cont. meclizine and zofran scheduled for dizziness which is helping. Will prescribe zofran/meclizine prn on discharge to help with her symptoms going forward. - Spoke with hematology (Dr. Cueto) who would be willing to see pt as an outpatient. Pt agrees with plan. - Incentive spirometer prn to prevent acute chest syndrome - Hgb 8.6 s/p 1 unit blood (10/15), stable, monitor - PT/OT Intractable pain - As above Depression Due to diagnosis and life circumstances. Stable affect on admission. - Could consider behavioral health consult if this becomes overt Seizure-like activity Prior hx of non-epileptic seizures. - Monitor DVT prophylaxis High VTE risk given her sickle cell. - cont. Lovenox 40 mg SQ daily Constipation -likely secondary to pain and opioid use -miralax daily, milk of mag prn Itchiness -Benadryl prn DVT ppx: lovenox FEN/GI: regular Code Status: full Dispo: med surg (2) Intractable pain: (3) Depression: (4) Seizure-like activity: (5) DVT prophylaxis: (6) Constipation: Admission and Anticipated Discharge Date Admission Date: October 13, 2021 Supervising Physician Co-Signing Physician Notes I independently saw the patient and confirmed amaro portions of the history and physical examination. I reviewed the case with the resident physician. Agree with impression plan as noted in the resident documentation. I saw the patient late morning. She was supine in bed working on her iPad. She states that the pain is slowly improving. She denies any chest pain, dyspnea, dizziness, or palpitations. Exam 92/51, 82, 12, 36.9, 96% on room air She is pleasant today. Smiles. No acute distress appreciated. Affect is appropriate; reactive. Heart regular Respirations nonlabored Data Hemoglobin 8.4, Hematocrit 23.8 Impression and plan Sickle cell disease with pain crisis Slowly improving Tolerating p.o. Hemoglobin stable Additional per resident documentation as noted. Subjective Patient seen at bedside this morning. Pain doing well. Not much dizziness. May be ready to go in the next couple of days. Denies chest pain, SOB, vomiting, headache. Review of Systems 2 Review of Systems: All systems reviewed & are unremarkable except as noted in HPI & below Physical Exam Physical Exam: Constitutional: in no acute distress, pleasant HEENT: No scleral injection or discharge.Moist mucous membranes. Neck: Supple without lymphadenopathy or thyromegaly. Trachea midline. Lungs: CTAB with good effort. Cardiac:RRR. No murmurs. Abdomen: +BS. Soft, nondistended.Mild diffuse tenderness. No guarding. No hepatosplenomegaly. Results & Data Results & Data ([facility]) Vital Signs (Past 12 Hours) Vital Signs Temp Pulse Resp BP Pulse Ox O2 Del Method 10/26/21 00:05 36.6 C 80 16 93/52 L 98 Room Air Laboratory Results 10/26/21 10/26/21 Range/Units 08:59 08:59 Hgb 8.4 L (12.0-16.0) g/dl Hct 23.8 L (34.1-44.9) % Sodium 135 L (136-145) mmol/L Potassium 3.8 (3.5-5.1) mmol/L Chloride 102 (98-107) mmol/L Carbon Dioxide 29 (21-32) mmol/L Anion Gap 4 (3-11) BUN 6 (6-23) mg/dl Creatinine 0.41 L (0.6-1.2) mg/dl Est Cr Clr Drug Dosing 199.8 ml/min Est GFR ( Amer) > 150.0 ml/min Est GFR (Non-Af Amer) 145.6 ml/min BUN/Creatinine Ratio 14.6 (10-20) Glucose 78 (70-99(Fasting)) mg/dl Calcium 9.4 (8.5-10.1) mg/dl Magnesium 1.6 L (1.7-2.4) mg/dl Resident Activity Tracking Resident Involvement: Resident Care Provided Care Provided: Adult [facility] Medicine (1) Sickle cell anemia Sickle-cell associated disorders: with unspecified crisis Qualified Code(s): D57.00 - Hb-SS disease with crisis, unspecified
[2021-10-26] MEDS: FOLIC ACID 1 MG TAB PO SCH (08:21)
[2021-10-26] MEDS: MECLIZINE HCL 25 MG TAB PO SCH ×3 (08:22→21:36)
[2021-10-26] MEDS: POLYETHYLENE (MIRALAX) 17 GM PACK PO SCH (08:22)
[2021-10-26] MEDS: DOCUSATE SODIUM 100 MG CAP PO SCH ×2 (08:22→21:35)
[2021-10-26] MEDS: HYDROXYUREA 500 MG CAP PO SCH ×2 (08:22→21:35)
[2021-10-26] MEDS: CHECK fentaNYL PATCH PLACEMENT SCH ×3 (08:23→23:40)
[2021-10-26 09:14] LABS: Hematocrit (blood only) 23.8 % (34.1-44.9); Hemoglobin 8.4 g/dl (12.0-16.0)
[2021-10-26 09:37] LABS: Anion Gap 4 (3-11); BUN Creatinine Ratio 14.6 (10-20); Blood Urea Nitrogen 6 mg/dl (6-23); Calcium 9.4 mg/dl (8.5-10.1); Carbon Dioxide 29 mmol/L (21-32); Chloride 102 mmol/L (98-107); Creatinine Clr Calc Pharmacy 199.8 ml/min; Est GFR (African American) > 150.0 ml/min; Est GFR (Non-African American) 145.6 ml/min; Glucose 78 mg/dl (70-99(Fasting)); Magnesium 1.6 mg/dl (1.7-2.4); Potassium 3.8 mmol/L (3.5-5.1); Sodium 135 mmol/L (136-145)
[2021-10-26] MEDS ORDERED: MAGNESIUM SULFATE / D5W 1 GM/100 ML BAG IV SCH (10:45)
[2021-10-26] MEDS: MAGNESIUM SULFATE / D5W 1 GM/100 ML BAG IV SCH ×2 (10:52→13:18)
[2021-10-26] MEDS: ENOXAPARIN INJ 40 MG/0.4 ML SYR SQ SCH (20:41)
[2021-10-26] MEDS: MAGNESIUM HYDROXIDE SUSP 30 ML UDC PO PRN (21:36)
[2021-10-27] MEDS: ONDANSETRON INJ 2 MG/ML 2 ML VIAL IV SCH ×4 (00:56→18:34)
[2021-10-27] MEDS: HYDROmorphone INJ 1 MG/ML SYRINGE IV PRN ×7 (02:54→21:48)
[2021-10-27] MEDS: SODIUM CHLORIDE 0.45 % 1,000 ML IV SCH ×3 (06:05→19:34)
[2021-10-27 08:42] LABS: Hematocrit (blood only) 21.7 % (34.1-44.9); Hemoglobin 7.7 g/dl (12.0-16.0)
[2021-10-27] MEDS: FOLIC ACID 1 MG TAB PO SCH (09:06)
[2021-10-27] MEDS: CHECK fentaNYL PATCH PLACEMENT SCH ×2 (09:06→15:15)
[2021-10-27] MEDS: MECLIZINE HCL 25 MG TAB PO SCH ×3 (09:06→19:34)
[2021-10-27] MEDS: DOCUSATE SODIUM 100 MG CAP PO SCH ×2 (09:06→19:35)
[2021-10-27] MEDS: HYDROXYUREA 500 MG CAP PO SCH ×2 (09:06→19:35)
[2021-10-27] MEDS: POLYETHYLENE (MIRALAX) 17 GM PACK PO SCH (09:07)
--- NOTE | 2021-10-27 11:56 | Hospitalist Progress Note ---
Date of Service October 27, 2021 Assessment & Plan (1) Sickle cell anemia: Plan: 21 yo F with PMHx of sickle cell who presents with pain crisis. Sickle Cell Crisis Follows with [facility]. Has not seen a tube bender in quite some time. - Cont. home hydroxyurea, fentanyl patch, zofran prn - Hypotonic IV fluids inc. to 150mls/hr to help with pain, cont. - Pain regimen: - home regimen: fentanyl patch q3d and po morphine 15mg for breakthrough - (10/20)D/c'd IV morphine 6mg q3h prn, was not controlling pain and causing dizziness - Pain regimen is currently 1 mg of Dilaudid every 3 hour as needed which seems to be having good pain control - Spoke with hematology (Dr. Cueto) who would be willing to see pt as an outpatient. Pt agrees with plan. - Incentive spirometer prn to prevent acute chest syndrome - Hemoglobin dropped from 8.4 to 7.7 overnight, continue to monitor - PT/OT Intractable pain - As above Depression Due to diagnosis and life circumstances. Stable affect on admission. - Could consider behavioral health consult if this becomes overt Seizure-like activity Prior hx of non-epileptic seizures. - Monitor DVT prophylaxis High VTE risk given her sickle cell. - cont. Lovenox 40 mg SQ daily Constipation -likely secondary to pain and opioid use -miralax daily, milk of mag prn Itchiness -Benadryl prn DVT ppx: lovenox FEN/GI: regular Code Status: full Dispo: med surg (2) Intractable pain: (3) Depression: (4) Seizure-like activity: (5) DVT prophylaxis: (6) Constipation: Admission and Anticipated Discharge Date Admission Date: October 13, 2021 Supervising Physician Co-Signing Physician Notes Resident Physician Supervision Note: I independently interviewed and examined the patient and verified the amaro history and physical, reviewed labs and image studies and agree with resident findings and care plan. Subjective Patient seen at bedside this morning. No events reported overnight. Patient reports that her pain is well under control right now she is just gotten a dose of Dilaudid prior to my arrival. Dizziness seems to be improved. Reports that she feels like she will be able to go home in a couple of days. Patient otherwise reports no other complaints at this time. Review of Systems Review of Systems: All systems reviewed & are unremarkable except as noted in HPI & below Physical Exam Constitutional: WD/WN, vitals as above Eyes: + anicteric sclerae Neck: normal visual inspection Respiratory: normal respiratory effort, lungs clear to auscultation Cardiovascular: RRR, no murmur, no edema Gastrointestinal (Abdomen): normal bowel sounds, soft, nontender, no hepatosplenomegaly Musculoskeletal: Head/Neck/Chest: normocephalic and head atraumatic Skin: no rashes, warm and dry Neurologic: moves all extremities Psychiatric: A+Ox3, euthymic affect Results & Data Results & Data ([facility]) Vital Signs (Past 12 Hours) Vital Signs Temp Pulse Resp BP Pulse Ox O2 Del Method 10/27/21 07:20 36.8 C 69 12 92/55 L 97 Room Air (1) Sickle cell anemia Sickle-cell associated disorders: with unspecified crisis Qualified Code(s): D57.00 - Hb-SS disease with crisis, unspecified
[2021-10-27] MEDS: ENOXAPARIN INJ 40 MG/0.4 ML SYR SQ SCH (19:34)
[2021-10-27] MEDS: fentaNYL 12 MCG/HR TDSY TD SCH (20:50)
[2021-10-28] MEDS: HYDROmorphone INJ 1 MG/ML SYRINGE IV PRN ×7 (00:49→22:01)
[2021-10-28] MEDS: ONDANSETRON INJ 2 MG/ML 2 ML VIAL IV SCH ×4 (00:50→18:37)
[2021-10-28] MEDS: CHECK fentaNYL PATCH PLACEMENT SCH ×4 (00:53→23:28)
[2021-10-28] MEDS: SODIUM CHLORIDE 0.45 % 1,000 ML IV SCH ×4 (02:14→22:02)
[2021-10-28 06:47] LABS: Hematocrit (blood only) 21.2 % (34.1-44.9); Hemoglobin 7.6 g/dl (12.0-16.0)
[2021-10-28] MEDS: HYDROXYUREA 500 MG CAP PO SCH ×2 (08:27→20:41)
[2021-10-28] MEDS: MECLIZINE HCL 25 MG TAB PO SCH ×3 (08:27→20:41)
[2021-10-28] MEDS: FOLIC ACID 1 MG TAB PO SCH (08:27)
[2021-10-28] MEDS: DOCUSATE SODIUM 100 MG CAP PO SCH ×2 (08:27→20:40)
[2021-10-28] MEDS: POLYETHYLENE (MIRALAX) 17 GM PACK PO SCH (08:28)
--- NOTE | 2021-10-28 14:04 | Hospitalist Progress Note ---
Date of Service October 28, 2021 Assessment & Plan (1) Sickle cell anemia: Plan: 21 yo F with PMHx of sickle cell who presents with pain crisis. Sickle Cell Crisis Follows with [facility]. Has not seen a lard bleacher in quite some time. - Cont. home hydroxyurea, fentanyl patch, zofran prn - Hypotonic IV fluids inc. to 150mls/hr to help with pain, cont. - Pain regimen: - home regimen: fentanyl patch q3d and po morphine 15mg for breakthrough - (10/20)D/c'd IV morphine 6mg q3h prn, was not controlling pain and causing dizziness - Pain regimen is currently 1 mg of Dilaudid every 3 hour as needed which seems to be having good pain control - Spoke with hematology (Dr. Cueto) who would be willing to see pt as an outpatient. Pt agrees with plan. - Incentive spirometer prn to prevent acute chest syndrome - Hemoglobin dropped from 8.4 to 7.7 on 10/27, now 7.6 today, continue to monitor - If pain worsens as hgb decreases consider an additional unit to transfuse - PT/OT Intractable pain - As above Depression Due to diagnosis and life circumstances. Stable affect on admission. - Could consider behavioral health consult if this becomes overt Seizure-like activity Prior hx of non-epileptic seizures. - Monitor DVT prophylaxis High VTE risk given her sickle cell. - cont. Lovenox 40 mg SQ daily Constipation -likely secondary to pain and opioid use -miralax daily, milk of mag prn Itchiness -Benadryl prn DVT ppx: lovenox FEN/GI: regular Code Status: full Dispo: med surg (2) Intractable pain: (3) Depression: (4) Seizure-like activity: (5) DVT prophylaxis: (6) Constipation: Admission and Anticipated Discharge Date Admission Date: October 13, 2021 Supervising Physician Co-Signing Physician Notes Resident Physician Supervision Note: I independently interviewed and examined the patient and verified the amaro history and physical, reviewed labs and image studies and agree with resident findings and care plan. Subjective Patient seen at bedside this morning. No acute events reported overnight. Patient does report me that her pain is slightly worse than yesterday. She reports me that she was contemplating being ready to go home yesterday but then her pain flared up and prevented her from wanting to go home. Otherwise has no other complaints this morning. Review of Systems Review of Systems: All systems reviewed & are unremarkable except as noted in HPI & below Physical Exam Constitutional: WD/WN, vitals as above Eyes: + anicteric sclerae Neck: normal visual inspection Respiratory: normal respiratory effort, lungs clear to auscultation Cardiovascular: RRR, no murmur, no edema Gastrointestinal (Abdomen): normal bowel sounds, soft, nontender, no hepatosplenomegaly Musculoskeletal: Head/Neck/Chest: normocephalic and head atraumatic Skin: no rashes, warm and dry Neurologic: moves all extremities Psychiatric: A+Ox3, euthymic affect Results & Data Results & Data ([facility]) Vital Signs (Past 12 Hours) Vital Signs Temp Pulse Resp BP Pulse Ox O2 Del Method 10/28/21 07:20 36.6 C 61 12 91/56 L 97 Room Air (1) Sickle cell anemia Sickle-cell associated disorders: with unspecified crisis Qualified Code(s): D57.00 - Hb-SS disease with crisis, unspecified
[2021-10-28] MEDS: ENOXAPARIN INJ 40 MG/0.4 ML SYR SQ SCH (18:37)
[2021-10-29] MEDS: ONDANSETRON INJ 2 MG/ML 2 ML VIAL IV SCH ×4 (00:01→18:48)
[2021-10-29] MEDS: HYDROmorphone INJ 1 MG/ML SYRINGE IV PRN ×7 (01:07→22:58)
[2021-10-29] MEDS: SODIUM CHLORIDE 0.45 % 1,000 ML IV SCH ×3 (04:20→18:48)
[2021-10-29] MEDS: CHECK fentaNYL PATCH PLACEMENT SCH ×3 (07:23→23:35)
--- NOTE | 2021-10-29 07:33 | Hospitalist Progress Note ---
Date of Service October 29, 2021 Assessment & Plan (1) Sickle cell anemia: Plan: 21 yo F with PMHx of sickle cell who presents with pain crisis. Sickle Cell Crisis Follows with [facility]. Has not seen a custodian athletic equipment in quite some time. - Cont. home hydroxyurea, fentanyl patch, zofran prn - Hypotonic IV fluids inc. to 150mls/hr to help with pain, cont. - Pain regimen: - home regimen: fentanyl patch q3d and po morphine 15mg for breakthrough - (10/20)D/c'd IV morphine 6mg q3h prn, was not controlling pain and causing dizziness - Pain regimen is currently 1 mg of Dilaudid every 3 hour as needed which seems to be having good pain control - Spoke with hematology (Dr. Cueto) who would be willing to see pt as an outpatient. Pt agrees with plan. - Incentive spirometer prn to prevent acute chest syndrome - Hemoglobin dropped from 8.4 to 7.7 on 10/27, now 7.8 today, continue to monitor - If pain worsens as hgb decreases consider an additional unit to transfuse - PT/OT Intractable pain - As above - Ordered XR L knee for left knee pain given hx of avascular necrosis of left femoral head. - Ordered voltaren gel topical TID for bilateral knees, left hip. - Most likely patellar tendonitis; will reach out to PT for knee brace and potential hip brace given most likely compensation from hip pain/past hx avascular necrosis of left femoral head. Depression Due to diagnosis and life circumstances. Stable affect on admission. - Could consider behavioral health consult if this becomes overt Seizure-like activity Prior hx of non-epileptic seizures. - Monitor DVT prophylaxis High VTE risk given her sickle cell. - cont. Lovenox 40 mg SQ daily Constipation -likely secondary to pain and opioid use -miralax daily, milk of mag prn Itchiness -Benadryl prn DVT ppx: lovenox FEN/GI: regular Code Status: full Dispo: med surg (2) Intractable pain: (3) Depression: (4) Seizure-like activity: (5) DVT prophylaxis: (6) Constipation: Admission and Anticipated Discharge Date Admission Date: October 13, 2021 Supervising Physician Co-Signing Physician Notes I personally examined the patient and verified all amaro points of history and exam, discussed case, and agree with decision making with Dr Carballo. Main concern now is left knee and hip painshe does still have pain all over, but this seems different. His anterior knee, worse with movement, seems to go up the whole front of her leg to her hip, also she has some pain behind the knee at the back of the legcompressing from behind seems to help some. Vitals noted, in general she is awake and alert pleasant no distress. HEENT normocephalic atraumatic mucous membranes moist. Breathing unlabored no accessory muscle use good effort. Skin shows no rashes no pallor or icterus. Neuro without focal deficits. Musculoskeletal shows her left knee to have anterior tenderness to patellar compression and lateral patellar tracking as well as some tenderness in her distal quad without crepitus. She has no joint line tenderness or effusion, no ligamentous laxity. 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 Will give trial to patellar tendon strap, Voltaren gel to the knee, as well as SI joint belt to try to stabilize her hips. Would likely benefit from outpatient PT geared towards strengthening her hip internal and external rotators Otherwise as above Subjective Patient seen at the bedside today saying she has most pain at the left knee radiating to the left hip. The pain is most prominent at the patellar tendon and hamstring tendons by the knee. She states that the pain at these sites are not as well controlled as the pain throughout the rest of her body with the pain medications. The pain is most prominent with walking. Review of Systems Constitutional: as per Subjective / HPI Physical Exam Constitutional: WD/WN, vitals as above Eyes: PERRL, conjunctivae normal, anicteric sclerae Respiratory: normal respiratory effort Musculoskeletal: ROM in tact bilaterally a the knees. Normal straight leg raise, tenderness to palpation at the suprapatellar tendon and at the posterior hamstring tendons by the knee. In tact ACL, PCL, MCL, LCL. Skin: no swelling or bruising at the L knee. Psychiatric: A+Ox3, euthymic affect Results & Data Results & Data ([facility]) Vital Signs (Past 12 Hours) Vital Signs Temp Pulse Resp BP Pulse Ox O2 Del Method 10/28/21 21:58 36.7 C 79 18 114/76 97 Room Air Resident Activity Tracking Resident Involvement: Resident Care Provided Care Provided: Adult Hospital Medicine (1) Sickle cell anemia Sickle-cell associated disorders: with unspecified crisis Qualified Code(s): D57.00 - Hb-SS disease with crisis, unspecified
[2021-10-29 08:29] LABS: Hematocrit (blood only) 21.7 % (34.1-44.9); Hemoglobin 7.8 g/dl (12.0-16.0)
[2021-10-29] MEDS: FOLIC ACID 1 MG TAB PO SCH (10:15)
[2021-10-29] MEDS: POLYETHYLENE (MIRALAX) 17 GM PACK PO SCH (10:15)
[2021-10-29] MEDS: MECLIZINE HCL 25 MG TAB PO SCH ×3 (10:15→21:55)
[2021-10-29] MEDS: DOCUSATE SODIUM 100 MG CAP PO SCH ×2 (10:15→21:54)
[2021-10-29] MEDS: HYDROXYUREA 500 MG CAP PO SCH ×2 (10:16→21:54)
[2021-10-29] MEDS: diphenhydrAMINE Capsule 25 MG CAP PO PRN (11:14)
[2021-10-29] MEDS: ENOXAPARIN INJ 40 MG/0.4 ML SYR SQ SCH (18:47)
--- NOTE | 2021-10-29 19:52 | Billing Data ---
Date of Service October 29, 2021 Coding Level of Care Code 49297 Subseq Hosp Care Lvl 3
--- NOTE | 2021-10-29 21:38 | XRay Report ---
XR knee LT 3V CLINICAL HISTORY: L knee pain, hx sickle cell, avasc nec L fem head TECHNIQUE: 3 views of the left knee were obtained. Comparison: None available at the time of this dictation. FINDINGS: There is no evidence of an acute fracture. Joint spaces are well-preserved. No joint effusion is seen . No soft tissue abnormality is seen. Mottled appearance of the marrow of the femur and tibia may be secondary to history of sickle cell. IMPRESSION: No evidence of acute osseous injury. ACT 112: Negative or not required by law. Electronically signed by: Kenn Jeffrey M.D. 10/29/2021 9:37 PM
[2021-10-29] MEDS: MAGNESIUM HYDROXIDE SUSP 30 ML UDC PO PRN (21:53)
[2021-10-29] MEDS: DICLOFENAC SOD 1% GEL 100 GM TUBE EXT SCH (21:55)
[2021-10-30] MEDS: SODIUM CHLORIDE 0.45 % 1,000 ML IV SCH ×4 (01:10→22:40)
[2021-10-30] MEDS: ONDANSETRON INJ 2 MG/ML 2 ML VIAL IV SCH ×4 (01:11→18:35)
[2021-10-30] MEDS: HYDROmorphone INJ 1 MG/ML SYRINGE IV PRN ×6 (03:04→20:40)
--- NOTE | 2021-10-30 06:50 | Hospitalist Progress Note ---
Date of Service October 30, 2021 Assessment & Plan (1) Sickle cell anemia: Plan: 21 yo F with PMHx of sickle cell who presents with pain crisis. Sickle Cell Crisis Follows with [facility]. Has not seen a triage licensed practical nurse in quite some time. - Cont. home hydroxyurea, fentanyl patch, zofran prn - Hypotonic IV fluids inc. to 150mls/hr to help with pain, cont. - Pain regimen: - home regimen: fentanyl patch q3d and po morphine 15mg for breakthrough - (10/20)D/c'd IV morphine 6mg q3h prn, was not controlling pain and causing dizziness - Pain regimen is currently 1 mg of Dilaudid every 3 hour as needed which seems to be having good pain control - Spoke with hematology (Dr. Cueto) who would be willing to see pt as an outpatient. Pt agrees with plan. - Incentive spirometer prn to prevent acute chest syndrome - Hemoglobin dropped from 8.4 to 7.7 on 10/27, now 7.8 today, continue to monitor - If pain worsens as hgb decreases consider an additional unit to transfuse Intractable pain - As above - Ordered XR L knee for left knee pain given hx of avascular necrosis of left femoral head. - Ordered voltaren gel topical TID for bilateral knees, left hip. - Most likely patellar tendonitis; unable to get knee brace and SI Joint brace from PT as these are not in house. Wrote prescription for outside pharmacy. Depression Due to diagnosis and life circumstances. Stable affect on admission. - Could consider behavioral health consult if this becomes overt Seizure-like activity Prior hx of non-epileptic seizures. - Monitor DVT prophylaxis High VTE risk given her sickle cell. - cont. Lovenox 40 mg SQ daily Constipation -likely secondary to pain and opioid use -miralax daily, milk of mag prn Itchiness -Benadryl prn DVT ppx: lovenox FEN/GI: regular Code Status: full Dispo: med surg (2) Intractable pain: (3) Depression: (4) Seizure-like activity: (5) DVT prophylaxis: (6) Constipation: Admission and Anticipated Discharge Date Admission Date: October 13, 2021 Supervising Physician Co-Signing Physician Notes I personally examined the patient and verified all amaro points of history and exam, discussed case, and agree with decision making with Dr Carballo. Feels frustrated. Dinner was just a very large tray of rice, feels to a degree that her needs are not being met, talks about going home. Discussed safe for home plan, and started talking about what medications she would need as well as getting her set up for the splints and straps that were discussed yesterday, that are unfortunately not available in-house from our therapy department, but after discussing discharge planning more concretely, she notes that she probably does not feel up to getting home just yet and will continue to take things day today. Vitals noted, in general she is awake and alert pleasant no distress. HEENT normocephalic atraumatic mucous membranes moist. Breathing unlabored no accessory muscle use good effort. Skin shows no rashes no pallor or icterus. Neuro without focal deficits. 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 Unable to get patellar tendinitis strap or SI joint belt herewrote prescriptions for patient'sshe has a friend coming in, who possibly can get them filled at an outpatient pharmacy for patient to try here. Continue Voltaren gel. Otherwise as above Subjective Patient seen at the bedside however asleep without any acute distress. No overnight events. Review of Systems Constitutional: as per Subjective / HPI Physical Exam Constitutional: WD/WN, vitals as above Eyes: PERRL, conjunctivae normal, anicteric sclerae Respiratory: normal respiratory effort Psychiatric: A+Ox3, euthymic affect Results & Data Results & Data ([facility]) Vital Signs (Past 12 Hours) Vital Signs Temp Pulse Resp BP Pulse Ox O2 Del Method 10/29/21 21:59 36.8 C 88 14 107/69 100 Room Air Resident Activity Tracking Resident Involvement: Resident Care Provided Care Provided: Adult Hospital Medicine (1) Sickle cell anemia Sickle-cell associated disorders: with unspecified crisis Qualified Code(s): D57.00 - Hb-SS disease with crisis, unspecified
[2021-10-30] MEDS: DICLOFENAC SOD 1% GEL 100 GM TUBE EXT SCH ×3 (09:11→20:34)
[2021-10-30] MEDS: CHECK fentaNYL PATCH PLACEMENT SCH ×2 (09:11→15:54)
[2021-10-30] MEDS: FOLIC ACID 1 MG TAB PO SCH (09:12)
[2021-10-30] MEDS: POLYETHYLENE (MIRALAX) 17 GM PACK PO SCH (09:12)
[2021-10-30] MEDS: MECLIZINE HCL 25 MG TAB PO SCH ×3 (09:12→20:37)
[2021-10-30] MEDS: DOCUSATE SODIUM 100 MG CAP PO SCH ×2 (09:12→20:35)
[2021-10-30] MEDS: HYDROXYUREA 500 MG CAP PO SCH ×2 (09:13→20:34)
[2021-10-30 11:21] LABS: Hematocrit (blood only) 22.3 % (34.1-44.9)
--- NOTE | 2021-10-30 17:06 | Billing Data ---
Date of Service October 30, 2021 Coding Level of Care Code 65441 Subseq Hosp Care Lvl 3
[2021-10-30] MEDS: ENOXAPARIN INJ 40 MG/0.4 ML SYR SQ SCH (18:35)
[2021-10-30] MEDS: fentaNYL 12 MCG/HR TDSY TD SCH (20:36)
[2021-10-31] MEDS: CHECK fentaNYL PATCH PLACEMENT SCH ×3 (00:09→16:17)
[2021-10-31] MEDS: ONDANSETRON INJ 2 MG/ML 2 ML VIAL IV SCH ×4 (00:09→18:54)
[2021-10-31] MEDS: HYDROmorphone INJ 1 MG/ML SYRINGE IV PRN ×6 (00:09→22:37)
[2021-10-31] MEDS: SODIUM CHLORIDE 0.45 % 1,000 ML IV SCH ×3 (05:33→18:59)
--- NOTE | 2021-10-31 06:39 | Hospitalist Progress Note ---
Date of Service October 31, 2021 Assessment & Plan (1) Sickle cell anemia: Plan: 21 yo F with PMHx of sickle cell who presents with pain crisis. Sickle Cell Crisis Follows with [facility]. Has not seen a gambling counsellor in quite some time. - Cont. home hydroxyurea, fentanyl patch, zofran prn - Hypotonic IV fluids inc. to 150mls/hr to help with pain, cont. - Pain regimen: - home regimen: fentanyl patch q3d and po morphine 15mg for breakthrough - (10/20)D/c'd IV morphine 6mg q3h prn, was not controlling pain and causing dizziness - Dilaudid increased from 1mg to 1.5mg PRN q3hrs. - Pain regimen is currently 1.5 mg of Dilaudid every 3 hour as needed which seems to be having good pain control - Spoke with hematology (Dr. Cueto) who would be willing to see pt as an outpatient. Pt agrees with plan. - Incentive spirometer prn to prevent acute chest syndrome - Hemoglobin dropped from 8.4 to 7.7 on 10/27, now 8.2 today, continue to monitor - If pain worsens as hgb decreases consider an additional unit to transfuse Intractable pain - As above - XR L knee w/o bony abnormality. - Ordered voltaren gel topical TID for bilateral knees, left hip. - Most likely patellar tendonitis; unable to get knee brace and SI Joint brace from PT as these are not in house. Wrote prescription for outside pharmacy. Depression Due to diagnosis and life circumstances. Stable affect on admission. - Could consider behavioral health consult if this becomes overt Seizure-like activity Prior hx of non-epileptic seizures. - Monitor DVT prophylaxis High VTE risk given her sickle cell. - cont. Lovenox 40 mg SQ daily Constipation -likely secondary to pain and opioid use -miralax daily, milk of mag prn Itchiness -Benadryl prn DVT ppx: lovenox FEN/GI: regular Code Status: full Dispo: med surg (2) Intractable pain: (3) Depression: (4) Seizure-like activity: (5) DVT prophylaxis: (6) Constipation: Admission and Anticipated Discharge Date Admission Date: October 13, 2021 Supervising Physician Co-Signing Physician Notes I personally examined the patient and verified all amaro points of history and exam, discussed case, and agree with decision making with Dr Carballo. pain worse. frustrated. Extensive discussions on pain control, and frustrations. Pain is all over. Vitals noted, in general she is awake and alert pleasant no distress. HEENT normocephalic atraumatic mucous membranes moist. Breathing unlabored no accessory muscle use good effort. Skin shows no rashes no pallor or icterus. Neuro without focal deficits. 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 Unable to get patellar tendinitis strap or SI joint belt herewrote prescriptions for patient'sshe has a friend coming in, who possibly can get them filled at an outpatient pharmacy for patient to try here. Continue Voltaren gel. Otherwise as above Time in approximately 5 PM, time out approximately 545, greater than 30 minutes [id number] Subjective Patient seen at the bedside this morning saying she feels so-so. She states she can tell when the fentanyl patch is getting on the lower side for absorption as it approaches time to change. Still having pain at the same level at the left leg/knee not relieved very much with the pain regimen. Review of Systems Constitutional: as per Subjective / HPI Physical Exam Constitutional: WD/WN, vitals as above Eyes: PERRL, conjunctivae normal, anicteric sclerae Respiratory: normal respiratory effort Skin: no rashes, warm and dry Psychiatric: A+Ox3, euthymic affect Results & Data Results & Data ([facility]) Vital Signs (Past 12 Hours) Vital Signs Temp Pulse Resp BP Pulse Ox O2 Del Method 10/30/21 22:14 36.9 C 87 14 106/72 98 Room Air Resident Activity Tracking Resident Involvement: Resident Care Provided Care Provided: Adult Hospital Medicine (1) Sickle cell anemia Sickle-cell associated disorders: with unspecified crisis Qualified Code(s): D57.00 - Hb-SS disease with crisis, unspecified
[2021-10-31 08:16] LABS: Hematocrit (blood only) 22.6 % (34.1-44.9); Hemoglobin 8.2 g/dl (12.0-16.0)
[2021-10-31] MEDS: DICLOFENAC SOD 1% GEL 100 GM TUBE EXT SCH ×3 (10:10→21:59)
[2021-10-31] MEDS: HYDROXYUREA 500 MG CAP PO SCH ×2 (10:11→22:01)
[2021-10-31] MEDS: DOCUSATE SODIUM 100 MG CAP PO SCH ×2 (10:11→22:00)
[2021-10-31] MEDS: MECLIZINE HCL 25 MG TAB PO SCH ×3 (10:11→22:00)
[2021-10-31] MEDS: FOLIC ACID 1 MG TAB PO SCH (10:12)
[2021-10-31] MEDS: POLYETHYLENE (MIRALAX) 17 GM PACK PO SCH (10:12)
[2021-10-31] MEDS ORDERED: HYDROmorphone INJ 1 MG/ML SYRINGE IV STA (17:56)
--- NOTE | 2021-10-31 20:16 | Billing Data ---
Date of Service October 31, 2021 Coding Level of Care Code 16473 Subseq Hosp Care Lvl 3
--- NOTE | 2021-10-31 20:16 | Billing Data ---
Date of Service October 31, 2021 Coding Level of Care Code 82500 Prolonged Care (int'l)
[2021-10-31] MEDS: ENOXAPARIN INJ 40 MG/0.4 ML SYR SQ SCH (21:59)
[2021-11-01] MEDS: SODIUM CHLORIDE 0.45 % 1,000 ML IV SCH ×4 (01:01→21:15)
[2021-11-01] MEDS: ONDANSETRON INJ 2 MG/ML 2 ML VIAL IV SCH ×4 (01:02→18:37)
[2021-11-01] MEDS: CHECK fentaNYL PATCH PLACEMENT SCH ×4 (01:03→21:15)
[2021-11-01] MEDS: HYDROmorphone INJ 1 MG/ML SYRINGE IV PRN ×7 (02:06→23:48)
--- NOTE | 2021-11-01 06:47 | Hospitalist Progress Note ---
Date of Service November 01, 2021 Assessment & Plan (1) Sickle cell anemia: Plan: 21 yo F with PMHx of sickle cell who presents with pain crisis. Sickle Cell Crisis Follows with [facility]. Has not seen a smoke chaser in quite some time. - Cont. home hydroxyurea, fentanyl patch, zofran prn - Hypotonic IV fluids inc. to 150mls/hr to help with pain, cont. - Pain regimen: - home regimen: fentanyl patch q3d and po morphine 15mg for breakthrough - (10/20)D/c'd IV morphine 6mg q3h prn, was not controlling pain and causing dizziness - Dilaudid increased from 1mg to 1.5mg PRN q3hrs. - Pain regimen is currently 1.5 mg of Dilaudid every 3 hour as needed which seems to be having good pain control - Spoke with hematology (Dr. Cueto) who would be willing to see pt as an outpatient. Pt agrees with plan. - Incentive spirometer prn to prevent acute chest syndrome - Hemoglobin dropped from 8.4 to 7.7 on 10/27, now 8.2 yesterday, continue to monitor - If pain worsens as hgb decreases consider an additional unit to transfuse Intractable pain - As above - XR L knee w/o bony abnormality. - Ordered voltaren gel topical TID for bilateral knees, left hip. - Most likely patellar tendonitis; unable to get knee brace and SI Joint brace from PT as these are not in house. Wrote prescription for outside pharmacy. Depression Due to diagnosis and life circumstances. Stable affect on admission. - Could consider behavioral health consult if this becomes overt Seizure-like activity Prior hx of non-epileptic seizures. - Monitor DVT prophylaxis High VTE risk given her sickle cell. - cont. Lovenox 40 mg SQ daily Constipation -likely secondary to pain and opioid use -miralax daily, milk of mag prn Itchiness -Benadryl prn DVT ppx: lovenox FEN/GI: regular Code Status: full Dispo: med surg (2) Intractable pain: (3) Depression: (4) Seizure-like activity: (5) DVT prophylaxis: (6) Constipation: Admission and Anticipated Discharge Date Admission Date: October 13, 2021 Supervising Physician Co-Signing Physician Notes I personally examined the patient and verified all amaro points of history and exam, discussed case, and agree with decision making with Dr aCrballo. Pain doing better overall. Still fairly significant but increase in Dilaudid and increase in taking it has helped. She notes a little bit more dizziness, wonders if meclizine could be increased. Also requests a very disease detailed specific letter to help with potential accommodations for school. Vitals noted, in general she is awake and alert pleasant no distress. HEENT normocephalic atraumatic mucous membranes moist. Breathing unlabored no accessory muscle use good effort. Skin shows no rashes no pallor or icterus. Neuro without focal deficits. Sickle cell pain crisiscontinue fluids, pain meds (a doing better on Dilaudid now that it has been increased to 1.5 mg), supportive care. Increased meclizine to 4 times daily, EKG in a.m. given scheduled Zofran. Left knee painbilateral, but left worse than right, suspect it is patellar tendinitis, but likely also brought on by the mechanics of her arthritic hip from avascular necrosis. Unable to get patellar tendinitis strap or SI joint belt herewrote prescriptions for patient'sshe has a friend coming in, who possibly can get them filled at an outpatient pharmacy for patient to try here. Continue Voltaren gel. Otherwise as above Subjective Patient seen at the bedside today saying she does not feel well today still having pain but the pain is more controlled for a longer period of time with the 1.5mg dilaudid; also getting a little relief with the Voltaren gel. Denies shortness of breath, fevers ,chills. Review of Systems Constitutional: as per Subjective / HPI Physical Exam Constitutional: WD/WN, vitals as above Eyes: PERRL, conjunctivae normal, anicteric sclerae Respiratory: normal respiratory effort Skin: no rashes, warm and dry Psychiatric: A+Ox3, euthymic affect Results & Data Results & [facility] ([facility]) Vital Signs (Past 12 Hours) Vital Signs Temp Pulse Resp BP Pulse Ox O2 Del Method 11/01/21 06:17 37.1 C 61 14 97/60 L 99 Room Air 10/31/21 21:48 37.1 C 73 14 102/69 98 Room Air Resident Activity Tracking Resident Involvement: Resident Care Provided Care Provided: Adult Hospital Medicine (1) Sickle cell anemia Sickle-cell associated disorders: with unspecified crisis Qualified Code(s): D57.00 - Hb-SS disease with crisis, unspecified
[2021-11-01] MEDS: DOCUSATE SODIUM 100 MG CAP PO SCH ×2 (08:52→20:28)
[2021-11-01] MEDS: FOLIC ACID 1 MG TAB PO SCH (08:52)
[2021-11-01] MEDS: MECLIZINE HCL 25 MG TAB PO SCH ×3 (08:52→20:28)
[2021-11-01] MEDS: HYDROXYUREA 500 MG CAP PO SCH ×2 (08:52→20:28)
[2021-11-01] MEDS: DICLOFENAC SOD 1% GEL 100 GM TUBE EXT SCH ×3 (08:53→20:27)
[2021-11-01] MEDS: POLYETHYLENE (MIRALAX) 17 GM PACK PO SCH (08:53)
[2021-11-01] MEDS: ENOXAPARIN INJ 40 MG/0.4 ML SYR SQ SCH (18:37)
--- NOTE | 2021-11-01 19:10 | Billing Data ---
Date of Service November 01, 2021 Coding Level of Care Code 12588 Subseq Hosp Care Lvl 3
[2021-11-01] MEDS: MAGNESIUM HYDROXIDE SUSP 30 ML UDC PO PRN (20:27)
[2021-11-01] MEDS ORDERED: ONDANSETRON 4 MG OD TAB PO SCH (21:00)
[2021-11-02] MEDS: ONDANSETRON INJ 2 MG/ML 2 ML VIAL IV SCH ×4 (00:50→18:18)
[2021-11-02] MEDS: diphenhydrAMINE Capsule 25 MG CAP PO PRN ×2 (02:45→23:20)
[2021-11-02] MEDS: HYDROmorphone INJ 1 MG/ML SYRINGE IV PRN ×7 (03:25→23:20)
[2021-11-02] MEDS: SODIUM CHLORIDE 0.45 % 1,000 ML IV SCH ×4 (03:54→23:11)
--- NOTE | 2021-11-02 06:36 | Hospitalist Progress Note ---
Date of Service November 02, 2021 Assessment & Plan (1) Sickle cell anemia: Plan: 21 yo F with PMHx of sickle cell who presents with pain crisis. Sickle Cell Crisis Follows with [facility]. Has not seen a simulation specialist in quite some time. - Cont. home hydroxyurea, fentanyl patch, zofran prn - Hypotonic IV fluids inc. to 150mls/hr to help with pain, cont. - Pain regimen: - home regimen: fentanyl patch q3d and po morphine 15mg for breakthrough - (10/20)D/c'd IV morphine 6mg q3h prn, was not controlling pain and causing dizziness - Dilaudid increased from 1mg to 1.5mg PRN q3hrs. - Pain regimen is currently 1.5 mg of Dilaudid every 3 hour as needed which seems to be having good pain control - Spoke with hematology (Dr. Cueto) who would be willing to see pt as an outpatient. Pt agrees with plan. - Incentive spirometer prn to prevent acute chest syndrome - Hemoglobin dropped from 8.4 to 7.7 on 10/27, now 8.2 on latest reading, continue to monitor - If pain worsens as hgb decreases consider an additional unit to transfuse Intractable pain - As above - XR L knee w/o bony abnormality. - Ordered voltaren gel topical TID for bilateral knees, left hip. - Most likely patellar tendonitis; unable to get knee brace and SI Joint brace from PT as these are not in house. Wrote prescription for outside pharmacy. Depression Due to diagnosis and life circumstances. Stable affect on admission. - Could consider behavioral health consult if this becomes overt Seizure-like activity Prior hx of non-epileptic seizures. - Monitor DVT prophylaxis High VTE risk given her sickle cell. - cont. Lovenox 40 mg SQ daily Constipation -likely secondary to pain and opioid use -miralax daily, milk of mag prn Itchiness -Benadryl prn DVT ppx: lovenox FEN/GI: regular Code Status: full Dispo: med surg (2) Intractable pain: (3) Depression: (4) Seizure-like activity: (5) DVT prophylaxis: (6) Constipation: Admission and Anticipated Discharge Date Admission Date: October 13, 2021 Supervising Physician Co-Signing Physician Notes I personally examined the patient and verified all amaro points of history and exam, discussed case, and agree with decision making with Dr Carballo. tired. pain reasonable - notes that 1.5mg lasting 3hrs and she's trying to space it longer from time to time. gave her letter for review for school - she notes that it appears that it will serve her purposes Vitals noted, in general she is awake and alert pleasant no distress. HEENT normocephalic atraumatic mucous membranes moist. Breathing unlabored no accessory muscle use good effort. Skin shows no rashes no pallor or icterus. Neuro without focal deficits. Sickle cell pain crisiscontinue fluids, pain meds (is doing better on Dilaudid now that it has been increased to 1.5 mg), supportive care. Left knee painbilateral, but left worse than right, suspect it is patellar tendinitis, but likely also brought on by the mechanics of her arthritic hip from avascular necrosis. Unable to get patellar tendinitis strap or SI joint belt herewrote prescriptions for patient'sbut has unfortunately not been able to get from retail pharmacy via a friend yet. Continue Voltaren gel. Otherwise as above Subjective Attempted to see patient at the bedside however patient asleep, not in any acute distress. No overnight events. Review of Systems Constitutional: as per Subjective / HPI Physical Exam Constitutional: WD/WN, vitals as above Eyes: PERRL, conjunctivae normal, anicteric sclerae Respiratory: normal respiratory effort Skin: no rashes, warm and dry Psychiatric: A+Ox3, euthymic affect Results & Data Results & Data ([facility]) Vital Signs (Past 12 Hours) Vital Signs Temp Pulse Resp BP Pulse Ox O2 Del Method 11/01/21 22:21 36.8 C 70 16 105/64 98 Room Air Resident Activity Tracking Resident Involvement: Resident Care Provided Care Provided: Adult Hospital Medicine (1) Sickle cell anemia Sickle-cell associated disorders: with unspecified crisis Qualified Code(s): D57.00 - Hb-SS disease with crisis, unspecified
[2021-11-02] MEDS: POLYETHYLENE (MIRALAX) 17 GM PACK PO SCH (08:13)
[2021-11-02] MEDS: HYDROXYUREA 500 MG CAP PO SCH ×2 (08:36→20:58)
[2021-11-02] MEDS: DICLOFENAC SOD 1% GEL 100 GM TUBE EXT SCH ×3 (08:37→20:58)
[2021-11-02] MEDS: FOLIC ACID 1 MG TAB PO SCH (08:37)
[2021-11-02] MEDS: DOCUSATE SODIUM 100 MG CAP PO SCH ×2 (08:37→20:58)
[2021-11-02] MEDS: MECLIZINE HCL 25 MG TAB PO SCH ×4 (08:37→20:58)
[2021-11-02] MEDS: CHECK fentaNYL PATCH PLACEMENT SCH ×3 (08:38→20:59)
--- NOTE | 2021-11-02 18:06 | Billing Data ---
Date of Service November 02, 2021 Coding Level of Care Code 72941 Subseq Hosp Care Lvl 3
[2021-11-02] MEDS: ENOXAPARIN INJ 40 MG/0.4 ML SYR SQ SCH (18:18)
[2021-11-02] MEDS: fentaNYL 12 MCG/HR TDSY TD SCH (19:58)
[2021-11-03] MEDS: ONDANSETRON INJ 2 MG/ML 2 ML VIAL IV SCH ×4 (01:51→19:44)
[2021-11-03] MEDS: HYDROmorphone INJ 1 MG/ML SYRINGE IV PRN ×7 (01:56→23:34)
[2021-11-03] MEDS: SODIUM CHLORIDE 0.45 % 1,000 ML IV SCH ×3 (06:03→19:44)
--- NOTE | 2021-11-03 06:43 | Hospitalist Progress Note ---
Date of Service November 03, 2021 Assessment & Plan (1) Sickle cell anemia: Plan: 21 yo F with PMHx of sickle cell who presents with pain crisis. Sickle Cell Crisis Follows with [facility]. 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 - Cont. home hydroxyurea, fentanyl patch, zofran prn - Hypotonic IV fluids inc. to 150mls/hr to help with pain, cont. - Pain regimen: - home regimen: fentanyl patch q3d and po morphine 15mg for breakthrough - (10/20)D/c'd IV morphine 6mg q3h prn, was not controlling pain and causing dizziness - Dilaudid increased from 1mg to 1.5mg PRN q3hrs. - Pain regimen is currently 1.5 mg of Dilaudid every 3 hour as needed which seems to be having good pain control - Spoke with hematology (Dr. Cueto) who would be willing to see pt as an outpatient. Pt agrees with plan. - Incentive spirometer prn to prevent acute chest syndrome - Hemoglobin dropped from 8.4 to 7.7 on 10/27, now 8.2 on latest reading, continue to monitor - If pain worsens as hgb decreases consider an additional unit to transfuse Intractable pain - As above - XR L knee w/o bony abnormality. - Ordered voltaren gel topical TID for bilateral knees, left hip. - Most likely patellar tendonitis; unable to get knee brace and SI Joint brace from PT as these are not in house. Wrote prescription for outside pharmacy. Depression Due to diagnosis and life circumstances. Stable affect on admission. - Could consider behavioral health consult if this becomes overt Seizure-like activity Prior hx of non-epileptic seizures. - Monitor DVT prophylaxis High VTE risk given her sickle cell. - cont. Lovenox 40 mg SQ daily Constipation -likely secondary to pain and opioid use -miralax daily, milk of mag prn Itchiness -Benadryl prn DVT ppx: lovenox FEN/GI: regular Code Status: full Dispo: med surg (2) Intractable pain: (3) Depression: (4) Seizure-like activity: (5) DVT prophylaxis: (6) Constipation: Admission and Anticipated Discharge Date Admission Date: October 13, 2021 Supervising Physician Co-Signing Physician Notes I personally examined the patient and verified all amaro points of history and exam, discussed case, and agree with decision making with Dr Carballo. Knee pain persists. Otherwise about the same to maybe slightly better. Thinking towards may be going home tomorrow. Knee without effusions or joint line tenderness no ligamentous laxity, no patellar Vitals noted, in general she is awake and alert pleasant no distress. HEENT normocephalic atraumatic mucous membranes moist. Breathing unlabored no accessory muscle use good effort. Skin shows no rashes no pallor or icterus. Neuro without focal deficits. Compression pain, distal quad somewhat tenderLAS done, patient tolerated well. No evidence of hyperalgesia on exam Sickle cell pain crisiscontinue fluids, pain meds (is doing better on Dilaudid now that it has been increased to 1.5 mg), supportive care. Hopefully home soon Left knee painbilateral, but left worse than right, suspect it is patellar tendinitis, but likely also brought on by the mechanics of her arthritic hip from avascular necrosis. Unable to get patellar tendinitis strap or SI joint belt herewrote prescriptions for patient'sbut has unfortunately not been able to get from retail pharmacy via a friend yet. Continue Voltaren gel. Gentle OMT done to distal quad. Otherwise as above Subjective Saw patient at the bedside today saying she felt so-so still at the current time. Still having the leg pain and saying that the voltaren gel helps temporarily but fades. The dilaudid at 1.5mg has helped her to take in less pain medications. Review of Systems Constitutional: as per Subjective / HPI Physical Exam Constitutional: WD/WN, vitals as above Eyes: PERRL, conjunctivae normal, anicteric sclerae Respiratory: normal respiratory effort, lungs clear to auscultation Cardiovascular: RRR, no murmur, no edema Skin: no rashes, warm and dry Psychiatric: A+Ox3, euthymic affect Results & Data Results & Data ([place]) Vital Signs (Past 12 Hours) Vital Signs Temp Pulse Resp BP Pulse Ox O2 Del Method 11/03/21 00:36 36.7 C 94 H 18 106/72 98 Room Air Resident Activity Tracking Resident Involvement: Resident Care Provided Care Provided: Adult Hospital Medicine (1) Sickle cell anemia Sickle-cell associated disorders: with unspecified crisis Qualified Code(s): D57.00 - Hb-SS disease with crisis, unspecified
[2021-11-03 08:47] LABS: Basophils # (auto) 0.04 K/uL (0-0.2); Basophils % (auto) 0.8 %; Eosinophils # (auto) 0.21 K/uL (0-0.50); Eosinophils % (auto) 4.4 %; Hematocrit (blood only) 23.1 % (34.1-44.9); Hemoglobin 8.3 g/dl (12.0-16.0); Immature Granulocytes # (auto) 0.02 K/uL (0.00-0.02); Immature Granulocytes % (auto) 0.4 %; Lymphocytes # (auto) 2.16 K/uL (1.2-3.4); Lymphocytes % (auto) 44.8 %; Mean Corpuscular Hemoglobin 36.7 pg (25.0-34.0); Mean Corpuscular Hgb Conc 35.9 g/dL (32.0-36.0); Mean Corpuscular Volume 102.2 fL (80.0-100.0); Mean Platelet Volume 9.8 fL (9.4-12.3); Monocytes # (auto) 0.24 K/uL (0.24-0.82); Neutrophils # (auto) 2.15 K/uL (1.4-6.5); Neutrophils % (auto) 44.6 %; Nucleated RBC # (auto) 0.14 K/uL (0-0); Nucleated RBC % (auto) 2.9 %; Platelet Count 353 K/uL (130-400); RDW Coefficient of Variation 21.4 % (11.5-14.5); RDW Standard Deviation 78.9 fL (36.4-46.3); Red Blood Count 2.26 M/uL (3.93-5.22); White Blood Count 4.82 K/ul (4.8-10.8)
[2021-11-03] MEDS: HYDROXYUREA 500 MG CAP PO SCH ×2 (09:12→21:00)
[2021-11-03] MEDS: DOCUSATE SODIUM 100 MG CAP PO SCH ×2 (09:17→21:00)
[2021-11-03] MEDS: FOLIC ACID 1 MG TAB PO SCH (09:18)
[2021-11-03] MEDS: MECLIZINE HCL 25 MG TAB PO SCH ×4 (09:18→21:00)
[2021-11-03] MEDS: POLYETHYLENE (MIRALAX) 17 GM PACK PO SCH (09:19)
[2021-11-03] MEDS: DICLOFENAC SOD 1% GEL 100 GM TUBE EXT SCH ×3 (09:20→21:01)
[2021-11-03 09:23] LABS: Polychromasia 1+; Sickle Cells 1+; Target Cells 2+
[2021-11-03] MEDS: CHECK fentaNYL PATCH PLACEMENT SCH ×3 (09:26→23:35)
[2021-11-03 09:28] LABS: Anion Gap 5 (3-11); BUN Creatinine Ratio 16.3 (10-20); Blood Urea Nitrogen 7 mg/dl (6-23); Calcium 9.1 mg/dl (8.5-10.1); Carbon Dioxide 28 mmol/L (21-32); Chloride 103 mmol/L (98-107); Creatinine Clr Calc Pharmacy 190.5 ml/min; Est GFR (African American) > 150.0 ml/min; Est GFR (Non-African American) 143.4 ml/min; Glucose 76 mg/dl (70-99(Fasting)); Potassium 3.8 mmol/L (3.5-5.1); Sodium 136 mmol/L (136-145)
--- NOTE | 2021-11-03 16:59 | Billing Data ---
Date of Service November 03, 2021 Coding Level of Care Code 05703 Subseq Hosp Care Lvl 3
[2021-11-03] MEDS: ENOXAPARIN INJ 40 MG/0.4 ML SYR SQ SCH (19:44)
[2021-11-03] MEDS: MAGNESIUM HYDROXIDE SUSP 30 ML UDC PO PRN (21:00)
[2021-11-03] MEDS: ALUMINUM/MAGNESIUM/SIMETH (MAALOX MAX) 30 ML UDC PO SCH (21:00)
[2021-11-04] MEDS: SODIUM CHLORIDE 0.45 % 1,000 ML IV SCH ×4 (00:43→20:39)
[2021-11-04] MEDS: ONDANSETRON INJ 2 MG/ML 2 ML VIAL IV SCH ×4 (00:43→18:36)
[2021-11-04] MEDS: HYDROmorphone INJ 1 MG/ML SYRINGE IV PRN ×7 (03:24→23:39)
--- NOTE | 2021-11-04 06:38 | Hospitalist Progress Note ---
Date of Service November 04, 2021 Assessment & Plan (1) Sickle cell anemia: Plan: 21 yo F with PMHx of sickle cell who presents with pain crisis. Sickle Cell Crisis Follows with [facility]. 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 - Cont. home hydroxyurea, fentanyl patch, zofran prn - Hypotonic IV fluids inc. to 150mls/hr to help with pain, cont. - Pain regimen: - home regimen: fentanyl patch q3d and po morphine 15mg for breakthrough - (10/20)D/c'd IV morphine 6mg q3h prn, was not controlling pain and causing dizziness - Dilaudid increased from 1mg to 1.5mg PRN q3hrs. - Currently has 1.5 mg of Dilaudid every 3 hour as needed which seems to be having good pain control - Spoke with hematology (Dr. Cueto) who would be willing to see pt as an outpatient. Pt agrees with plan. - Incentive spirometer prn to prevent acute chest syndrome - Hemoglobin dropped from 8.4 to 7.7 on 10/27, now 8.3 on latest reading, continue to monitor - If pain worsens as hgb decreases consider an additional unit to transfuse Intractable pain - As above - Patient w/ pain worst at left knee/leg along quadriceps to the knee. - XR L knee w/o bony abnormality. - Most likely patellar tendonitis; unable to get knee brace and SI Joint brace from PT as these are not in house. Wrote prescription for outside pharmacy. - Ordered voltaren gel topical TID for bilateral knees, left hip. Depression Due to diagnosis and life circumstances. Stable affect on admission. - Could consider behavioral health consult if this becomes overt Seizure-like activity Prior hx of non-epileptic seizures. - Monitor DVT prophylaxis High VTE risk given her sickle cell. - cont. Lovenox 40 mg SQ daily Constipation -likely secondary to pain and opioid use -miralax daily, milk of mag prn Itchiness -Benadryl prn DVT ppx: lovenox FEN/GI: regular Code Status: full Dispo: med surg (2) Intractable pain: (3) Depression: (4) Seizure-like activity: (5) DVT prophylaxis: (6) Constipation: Admission and Anticipated Discharge Date Admission Date: October 13, 2021 Supervising Physician Co-Signing Physician Notes I personally examined the patient and verified all amaro points of history and exam, discussed case, and agree with decision making with Dr Carballo. Knee and hip pain still bothering her. Pain overall improved. Worried about go ing home, but is able to space things a little bit longer. Also worried about missing class. Asking I send refills and in anticipation of hopefully going home tomorrow. Vitals noted, in general she is awake and alert pleasant no distress. HEENT normocephalic atraumatic mucous membranes moist. Breathing unlabored no accessory muscle use good effort. Skin shows no rashes no pallor or icterus. Neuro without focal deficits. Compression pain, distal quad somewhat tenderLAS done, patient tolerated well. No evidence of hyperalgesia on exam Sickle cell pain crisiscontinue fluids, pain meds (continues to be better on Dilaudid now that it has been increased to 1.5 mg), supportive care. Hopefully home soonshe noted hopefully tomorrowprescriptions sent for fentanyl patch and morphine for breakthrough in anticipation of hopefully tomorrow discharge. Left knee painbilateral, but left worse than right, suspect it is patellar tendinitis, but likely also brought on by the mechanics of her arthritic hip from avascular necrosis. Unable to get patellar tendinitis strap or SI joint belt herewrote prescriptions for patient'sbut has unfortunately not been able to get from retail pharmacy via a friend yet. Continue Voltaren gel. Otherwise as above, gave letters explaining condition for patient to give to school for hopefully more accommodationsshe reviewed and approved of content. Subjective Patient seen at the bedside this morning saying she feels so-so still. Not much change from yesterday, denies any new areas of acute change to discomfort. Review of Systems Constitutional: as per Subjective / HPI Physical Exam Constitutional: WD/WN, vitals as above Eyes: PERRL, conjunctivae normal, anicteric sclerae Respiratory: normal respiratory effort Skin: no rashes, warm and dry Psychiatric: A+Ox3, euthymic affect Results & Data Results & Data ([facility]) Vital Signs (Past 12 Hours) Vital Signs Temp Pulse Resp BP Pulse Ox O2 Del Method 11/03/21 22:48 36.8 C 80 14 112/69 98 Room Air Resident Activity Tracking Resident Involvement: Resident Care Provided Care Provided: Adult Hospital Medicine (1) Sickle cell anemia Sickle-cell associated disorders: with unspecified crisis Qualified Code(s): D57.00 - Hb-SS disease with crisis, unspecified
[2021-11-04] MEDS: DOCUSATE SODIUM 100 MG CAP PO SCH ×2 (10:03→22:23)
[2021-11-04] MEDS: FOLIC ACID 1 MG TAB PO SCH (10:03)
[2021-11-04] MEDS: MECLIZINE HCL 25 MG TAB PO SCH ×4 (10:04→22:23)
[2021-11-04] MEDS: ALUMINUM/MAGNESIUM/SIMETH (MAALOX MAX) 30 ML UDC PO SCH ×4 (10:05→22:23)
[2021-11-04] MEDS: DICLOFENAC SOD 1% GEL 100 GM TUBE EXT SCH ×3 (10:05→22:22)
[2021-11-04] MEDS: CHECK fentaNYL PATCH PLACEMENT SCH ×3 (10:05→23:40)
[2021-11-04] MEDS: POLYETHYLENE (MIRALAX) 17 GM PACK PO SCH (10:05)
[2021-11-04] MEDS: HYDROXYUREA 500 MG CAP PO SCH ×2 (10:06→22:23)
[2021-11-04] MEDS: ENOXAPARIN INJ 40 MG/0.4 ML SYR SQ SCH (18:37)
--- NOTE | 2021-11-04 19:05 | Billing Data ---
Date of Service November 04, 2021 Coding Level of Care Code 34222 Subseq Hosp Care Lvl 3
[2021-11-04] MEDS: MAGNESIUM HYDROXIDE SUSP 30 ML UDC PO PRN (22:26)
[2021-11-05] MEDS: ONDANSETRON INJ 2 MG/ML 2 ML VIAL IV SCH ×4 (02:04→18:35)
[2021-11-05] MEDS: HYDROmorphone INJ 1 MG/ML SYRINGE IV PRN ×7 (03:46→21:43)
[2021-11-05] MEDS: SODIUM CHLORIDE 0.45 % 1,000 ML IV SCH ×3 (03:46→18:31)
[2021-11-05] MEDS: ALUMINUM/MAGNESIUM/SIMETH (MAALOX MAX) 30 ML UDC PO SCH ×4 (08:56→21:42)
[2021-11-05] MEDS: CHECK fentaNYL PATCH PLACEMENT SCH ×2 (08:56→15:32)
[2021-11-05] MEDS: DICLOFENAC SOD 1% GEL 100 GM TUBE EXT SCH ×3 (08:56→21:41)
[2021-11-05] MEDS: DOCUSATE SODIUM 100 MG CAP PO SCH ×2 (08:57→21:43)
[2021-11-05] MEDS: FOLIC ACID 1 MG TAB PO SCH (08:57)
[2021-11-05] MEDS: MECLIZINE HCL 25 MG TAB PO SCH ×4 (08:57→21:42)
[2021-11-05] MEDS: POLYETHYLENE (MIRALAX) 17 GM PACK PO SCH (08:58)
[2021-11-05] MEDS: HYDROXYUREA 500 MG CAP PO SCH ×2 (08:58→21:42)
--- NOTE | 2021-11-05 19:24 | Hospitalist Progress Note ---
Date of Service November 05, 2021 Assessment & Plan (1) Sickle cell anemia: Plan: 21 yo F with PMHx of sickle cell who presents with pain crisis. Sickle Cell Crisis Follows with [facility]. 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 - Cont. home hydroxyurea, fentanyl patch, zofran prn - Hypotonic IV fluids inc. to 150mls/hr to help with pain, cont. - Pain regimen: - home regimen: fentanyl patch q3d and po morphine 15mg for breakthrough - (10/20)D/c'd IV morphine 6mg q3h prn, was not controlling pain and causing dizziness - Dilaudid increased from 1mg to 1.5mg PRN q3hrs. - Currently has 1.5 mg of Dilaudid every 3 hour as needed which seems to be having good pain control - Spoke with hematology (Dr. Cueto) who would be willing to see pt as an outpatient. Pt agrees with plan. - Incentive spirometer prn to prevent acute chest syndrome - Hemoglobin dropped from 8.4 to 7.7 on 10/27, now 8.3 on latest reading, continue to monitor - If pain worsens as hgb decreases consider an additional unit to transfuse Intractable pain - As above - Patient w/ pain worst at left knee/leg along quadriceps to the knee. - XR L knee w/o bony abnormality. - Most likely patellar tendonitis; unable to get knee brace and SI Joint brace from PT as these are not in house. Wrote prescription for outside pharmacy. - Ordered voltaren gel topical TID for bilateral knees, left hip. Depression Due to diagnosis and life circumstances. Stable affect on admission. - Could consider behavioral health consult if this becomes overt Seizure-like activity Prior hx of non-epileptic seizures. - Monitor DVT prophylaxis High VTE risk given her sickle cell. - cont. Lovenox 40 mg SQ daily Constipation -likely secondary to pain and opioid use -miralax daily, milk of mag prn Itchiness -Benadryl prn DVT ppx: lovenox FEN/GI: regular Code Status: full Dispo: med surg, patient may be ready to go tonight or tomorrow. If ready to go tonight discharge is prepped. (2) Intractable pain: (3) Depression: (4) Seizure-like activity: (5) DVT prophylaxis: (6) Constipation: Admission and Anticipated Discharge Date Admission Date: October 13, 2021 Supervising Physician Co-Signing Physician Notes Resident Physician Supervision Note: I independently interviewed and examined the patient and verified the amaro history and physical, reviewed labs and image studies and agree with resident findings and care plan. Subjective Patient seen at the bedside in the afternoon saying her pain felt more controlled. 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 Review of Systems Constitutional: as per Subjective / HPI Physical Exam Constitutional: WD/WN, vitals as above Eyes: PERRL, conjunctivae normal, anicteric sclerae Respiratory: normal respiratory effort, lungs clear to auscultation Cardiovascular: RRR, no murmur, no edema Skin: no rashes, warm and dry Psychiatric: A+Ox3, euthymic affect Results & Data Results & Data ([facility]) Vital Signs (Past 12 Hours) Vital Signs Temp Pulse Resp BP Pulse Ox O2 Del Method 11/05/21 16:01 36.9 C 78 18 100/67 95 Room Air 11/05/21 08:55 Room Air 11/05/21 08:27 36.9 C 68 18 105/65 100 Room Air Resident Activity Tracking Resident Involvement: Resident Care Provided Care Provided: Adult Hospital Medicine (1) Sickle cell anemia Sickle-cell associated disorders: with unspecified crisis Qualified Code(s): D57.00 - Hb-SS disease with crisis, unspecified
[2021-11-05] MEDS: ENOXAPARIN INJ 40 MG/0.4 ML SYR SQ SCH (21:41)
[2021-11-05] MEDS: fentaNYL 12 MCG/HR TDSY TD SCH (21:49)
[2021-11-06] MEDS: HYDROmorphone INJ 1 MG/ML SYRINGE IV PRN ×6 (00:36→22:38)
[2021-11-06] MEDS: CHECK fentaNYL PATCH PLACEMENT SCH ×4 (00:37→23:22)
[2021-11-06] MEDS: SODIUM CHLORIDE 0.45 % 1,000 ML IV SCH ×4 (00:41→22:41)
[2021-11-06] MEDS: ONDANSETRON INJ 2 MG/ML 2 ML VIAL IV SCH ×4 (00:42→18:51)
[2021-11-06] MEDS: ALUMINUM/MAGNESIUM/SIMETH (MAALOX MAX) 30 ML UDC PO SCH ×4 (07:29→20:14)
[2021-11-06] MEDS: MECLIZINE HCL 25 MG TAB PO SCH ×4 (09:05→20:15)
[2021-11-06] MEDS: POLYETHYLENE (MIRALAX) 17 GM PACK PO SCH (09:05)
[2021-11-06] MEDS: DOCUSATE SODIUM 100 MG CAP PO SCH ×2 (09:05→20:15)
[2021-11-06] MEDS: FOLIC ACID 1 MG TAB PO SCH (09:06)
[2021-11-06] MEDS: DICLOFENAC SOD 1% GEL 100 GM TUBE EXT SCH ×3 (09:06→20:15)
[2021-11-06] MEDS: HYDROXYUREA 500 MG CAP PO SCH ×2 (09:07→20:15)
--- NOTE | 2021-11-06 18:32 | Hospitalist Progress Note ---
Date of Service November 06, 2021 Assessment & Plan (1) Sickle cell anemia: Plan: 21 yo F with PMHx of sickle cell who presents with pain crisis. Sickle Cell Crisis Follows with [facility]. Has not seen a manager radiation in quite some time. - Cont. home hydroxyurea, fentanyl patch, zofran prn - Hypotonic IV fluids inc. to 150mls/hr to help with pain, cont. - Pain regimen: - home regimen: fentanyl patch q3d and po morphine 15mg for breakthrough - (10/20)D/c'd IV morphine 6mg q3h prn, was not controlling pain and causing dizziness - Dilaudid increased from 1mg to 1.5mg PRN q3hrs. -Currently has 1.5 mg of Dilaudid every 3 hour as needed which seems to be having good pain control - Spoke with hematology (Dr. Cueto) who would be willing to see pt as an outpatient. Pt agrees with plan. - Incentive spirometer prn to prevent acute chest syndrome - Hemoglobin dropped from 8.4 to 7.7 on 10/27, now 8.3 on latest reading, continue to monitor - If pain worsens as hgb decreases consider an additional unit to transfuse Intractable pain - As above - Patient w/ pain worst at left knee/leg along quadriceps to the knee. - XR L knee w/o bony abnormality. - Most likely patellar tendonitis; unable to get knee brace and SI Joint brace from PT as these are not in house. Wrote prescription for outside pharmacy. - Ordered voltaren gel topical TID for bilateral knees, left hip. Depression Due to diagnosis and life circumstances. Stable affect on admission. - Could consider behavioral health consult if this becomes overt Seizure-like activity Prior hx of non-epileptic seizures. - Monitor DVT prophylaxis High VTE risk given her sickle cell. - cont. Lovenox 40 mg SQ daily Constipation -likely secondary to pain and opioid use -miralax daily, milk of mag prn Itchiness -Benadryl prn DVT ppx: lovenox FEN/GI: regular Code Status: full Dispo: med surg, patient may be ready to go tonight or tomorrow. If ready to go tonight discharge is prepped. (2) Intractable pain: (3) Depression: (4) Seizure-like activity: (5) DVT prophylaxis: (6) Constipation: Admission and Anticipated Discharge Date Admission Date: October 13, 2021 Supervising Physician Co-Signing Physician Notes Resident Physician Supervision Note: I independently interviewed and examined the patient and verified the amaro history and physical, reviewed labs and image studies and agree with resident findings and care plan. Subjective Patient seen at the bedside this morning saying she feels her pain is better controlled and she may be at a place where she can leave soon. Not much change otherwise. Review of Systems Constitutional: as per Subjective / HPI Physical Exam Constitutional: WD/WN, vitals as above Eyes: PERRL, conjunctivae normal, anicteric sclerae Respiratory: normal respiratory effort Skin: no rashes, warm and dry Psychiatric: A+Ox3, euthymic affect Results & Data Results & Data ([facility]) Vital Signs (Past 12 Hours) Vital Signs Temp Pulse Resp BP BP Pulse Ox O2 Del Method 11/06/21 14:37 106/67 11/06/21 14:31 36.9 C 75 16 87/45 L 97 Room Air 11/06/21 07:26 37.0 C 94 H 16 99/60 L 100 Room Air Resident Activity Tracking Resident Involvement: Resident Care Provided Care Provided: Adult Hospital Medicine (1) Sickle cell anemia Sickle-cell associated disorders: with unspecified crisis Qualified Code(s): D57.00 - Hb-SS disease with crisis, unspecified
[2021-11-06] MEDS: ENOXAPARIN INJ 40 MG/0.4 ML SYR SQ SCH (18:51)
[2021-11-07] MEDS: ONDANSETRON INJ 2 MG/ML 2 ML VIAL IV SCH ×3 (01:43→13:22)
[2021-11-07] MEDS: HYDROmorphone INJ 1 MG/ML SYRINGE IV PRN ×6 (01:48→17:38)
[2021-11-07] MEDS: SODIUM CHLORIDE 0.45 % 1,000 ML IV SCH ×2 (05:23→13:22)
[2021-11-07] MEDS: ALUMINUM/MAGNESIUM/SIMETH (MAALOX MAX) 30 ML UDC PO SCH ×3 (08:37→17:29)
[2021-11-07] MEDS: DICLOFENAC SOD 1% GEL 100 GM TUBE EXT SCH ×2 (08:38→13:23)
[2021-11-07] MEDS: CHECK fentaNYL PATCH PLACEMENT SCH ×2 (08:38→17:30)
[2021-11-07] MEDS: MECLIZINE HCL 25 MG TAB PO SCH ×3 (08:39→17:30)
[2021-11-07] MEDS: DOCUSATE SODIUM 100 MG CAP PO SCH (08:39)
[2021-11-07] MEDS: FOLIC ACID 1 MG TAB PO SCH (08:39)
[2021-11-07] MEDS: HYDROXYUREA 500 MG CAP PO SCH (08:40)
[2021-11-07] MEDS: POLYETHYLENE (MIRALAX) 17 GM PACK PO SCH (08:40)
--- NOTE | 2021-11-07 18:37 | Discharge Summary ---
Date of Service November 07, 2021 Admission HPI Per Admitting Provider 21yo F w/ hx of sickle cell who presents with pain crisis. Has unfortunately not been able to follow up with PCP in last few months as she reports her usual PCP has been on other rotations and been unavailable. Patient reports that her pain started to escalate 2-3 days ago. She reports she uses her fentanyl patch and essentially takes her breakthrough morphine as standing, and therefore has nothing else to treat her pain with. The pain this time around is in the lower back and right knee. Denies shortness of breath, chest pain, fevers/chills, other symptoms. Admission Exam Per Admitting Provider Constitutional: WD/WN, vitals as above Eyes: EOM intact bilaterally; no conjunctival abnormality ENMT: external ear and nose normal, oropharynx normal Neck: trachea midline, no thyromegaly normal visual inspection Respiratory: normal respiratory effort, lungs clear to auscultation no respiratory distress Cardiovascular: RRR, no murmur, no edema Gastrointestinal (Abdomen): Inspection/Auscultation: abdomen normal to inspection; abdomen not distended Musculoskeletal: no cyanosis or clubbing, extremities motor strength 5/5 Lower back tenderness and right knee tenderness. No effusion on right knee, no warmth. Skin: no rashes, warm and dry Neurologic: moves all extremities and awake Psychiatric: Orientation: alert, oriented to person and cooperative Principal Diagnosis Sickle Cell Crisis Discharge Exam Constitutional WD/WN, vitals as above Eyes PERRL, conjunctivae normal, anicteric sclerae Respiratory normal respiratory effort Skin no rashes, warm and dry Psychiatric A+Ox3, euthymic affect Discharge Data Allergies Allergy/AdvReac Type Severity Reaction Status Date / Time ekg electrodes Allergy Intermediate Blister Uncoded 10/13/21 14:57 Consultations 10/13/21 14:24 ED Decision to Admit Stat Hospital Course (1) Sickle cell anemia: 21 yo F with PMHx of sickle cell and multiple hospitalization with extended hospital stays here with pain crisis. Sickle Cell Crisis Follows with [facility]. Has not seen a varnish dipper in quite some time. - Patient on home hydroxyurea, fentanyl patch, zofran prn - Pain regimen in hospital: - home regimen: fentanyl patch q3d and po morphine 15mg for breakthrough - Extended hospital stay this admission too. -Had 1.5 mg of Dilaudid every 3 hour as needed which seemed to have good pain control - discharged on home regimen. - Spoke with hematology (Dr. Cueto) who would be willing to see pt as an outpatient. Pt agrees with plan. - Hemoglobin dropped from 8.4 to 7.7 on 10/27, now 8.3 on latest reading, stable Intractable pain - As above - Patient w/ pain worst at left knee/leg along quadriceps to the knee. - XR L knee w/o bony abnormality. - Most likely patellar tendonitis; unable to get knee brace and SI Joint brace from PT as these are not in house. Wrote prescription for outside pharmacy. - Patient can continue voltaren gel outpatient for immediate relief. (2) Intractable pain: (3) Depression: (4) Seizure-like activity: (5) DVT prophylaxis: (6) Constipation: Total Time Total Time Spent Total Time Spent (In Minutes): Please see attending attestation. Discharge Plan Discharge Items Patient Disposition: Home - Self-Care Reason For Visit: Generalized Pain Discharge Diagnosis: Sickle Cell Crisis Condition on Discharge: Good Activity: Per Instructions section Non-emergency contact: Primary Care Provider Call non-emergency contact if: your symptoms worsen, your pain is worsening and your temperature is above 101 Follow-up/Referrals: [facility] [Primary Care Provider] - (you will need to call and make your appt with [facility] as they are closed for me to make an appt at this time 5 pm) Kimberley Cueto MD [Physician] - (sickle cell) Diet: Regular Addtl Attending Provider Instructions: A discharge summary will be sent to your primary care physician to ensure continuity of care. You came to the hospital due to a sickle cell crisis. You were found to be anemic and given a few units of blood during your time here. 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 This compensation can cause pain throughout your calf/leg and knee and can even translate to the other leg as well. In order to help remedy this a script for a knee brace and sacroiliac joint brace for your hip was sent to your pharmacy. Please wear this brace when possible at home or when taking walks to help straighten out your knee and hip and help with the compensation . A script for your fentanyl patch and the short acting oral morphine medications was sent to your pharmacy to [facility]. Please follow up with your PCP to help ensure continuity of prescriptions for these medications. You were also given a prescription for meclizine and zofran. If you need more refills on the zofran or meclizine and are unable to get a follow up appointment with your PCP in the [facility] clinic before the meds run out then call the [facility] clinic at [facility] and ask for refills on meclizine and Zofran from Dr. Carballo. Follow-up: * You should be seen by your primary physician within the next few weeks if possible. * You should follow up with Dr. Cueto in hematology outpatient, if you do not get a call from their office for scheduling within the next week, please give them a call. If they do not have the referral please call the [facility] office saying Dr. Carballo needs to send in your referral for Dr. Cueto in hematology. Pending Studies at Discharge: No Stand-Alone Forms: [facility] Sm[facility] Cess[facility] Medications and DC Order Prescriptions: New meclizine 25 mg tablet 25 mg PO TID PRN (Reason: dizziness) 20 Days Qty: 60 0RF ondansetron 4 mg tablet,disintegrating 4 mg PO TID Qty: 30 0RF Continued polyethylene glycol 3350 17 gram/dose powder 17 g PO DAILY PRN (Reason: Constipation) cholecalciferol (vitamin D3) [Vitamin D3] 25 mcg (1,000 unit) Tablet 25 mcg PO DAILY ondansetron HCl 4 mg tablet 4 mg PO Q8 PRN (Reason: nausea and vomiting) Qty: 15 0RF hydroxyurea 500 mg capsule 1,000 mg PO BID folic acid 1 mg Tablet 2 mg PO DAILY naloxone [Narcan] 4 mg/actuation spray,non-aerosol 4 mg INTRANASAL UD PRN (Reason: opiod overdose) morphine 15 mg tablet 15 mg PO Q8H PRN (Reason: pain) Qty: 90 0RF fentanyl 12 mcg/hr Patch 72 Hour 12 mcg transdermal Q3D Qty: 10 0RF Discharge Orders: Discharge Order (Routine); Ordered 11/07/21 Ordered By: César Aragon/Other Patient Handouts: ED Sickle Cell Pain Crisis Admission Data Admit Date/Time: 10/13/21 15:21 Attending Provider: Caty Serna Admit Provider: Cj Elias Primary Care Provider: [facility] Other Providers: Cj Elias ; Yeison Pond ; Cesar Kerr Other Interventions: Discharge Summary Assessment (RN) Last Done: 11/07/21 18:05 Supervising Physician Co-Signing Physician Notes Resident Physician Supervision Note: I independently interviewed and examined the patient and verified the amaro history and physical, reviewed labs and image studies and agree with resident findings and care plan. Resident Activity Tracking Resident Involvement: Resident Care Provided Care Provided: Adult Hospital Medicine
== END 2021-11-07 18:39 | disposition home or self-care (01) | DRG 812 ==
LOC: ED 11:31 → 3E 15:21 → SUATTDRO 15:21 → 3E 18:11
DX: G40.89 Other seizures; L29.9 Pruritus, unspecified; T40.2X5A Adverse effect of other opioids, initial encounter; F32.A Depression, unspecified; F60.3 Borderline personality disorder; K59.03 Drug induced constipation; D57.00 Hb-SS disease with crisis, unspecified; Y92.009 Unspecified place in unspecified non-institutional (private) residence as the place of occurrence of the external cause; M76.52 Patellar tendinitis, left knee

== ENCOUNTER 2021-12-20 19:46 | Inpatient (IN) ==
[2021-12-20 20:44] LABS: Alanine Aminotransferase 7 U/L (7-52); Albumin Globulin Ratio 1.4 (0.9-2); Albumin Level 4.2 gm/dl (3.4-5.0); Alkaline Phosphatase 49 U/L (34-104); Anion Gap 6 (3-11); Aspartate Aminotransferase 22 U/L (13-39); BUN Creatinine Ratio 10.6 (10-20); Blood Urea Nitrogen 5 mg/dl (6-23); Calcium 8.9 mg/dl (8.5-10.1); Carbon Dioxide 26 mmol/L (21-32); Chloride 106 mmol/L (98-107); Creatinine Clr Calc Pharmacy 174.3 ml/min; Est GFR (African American) > 150.0 ml/min; Est GFR (Non-African American) 139.2 ml/min; Glucose 97 mg/dl (70-99(Fasting)); Potassium 3.8 mmol/L (3.5-5.1); Sodium 138 mmol/L (136-145); Total Protein 7.2 gm/dl (6.0-8.3)
[2021-12-20 21:19] LABS: Basophils # (auto) 0.03 K/uL (0-0.2); Basophils % (auto) 0.4 %; Eosinophils # (auto) 0.13 K/uL (0-0.50); Eosinophils % (auto) 1.7 %; Hematocrit (blood only) 23.2 % (34.1-44.9); Hemoglobin 8.6 g/dl (12.0-16.0); Immature Granulocytes # (auto) 0.02 K/uL (0.00-0.02); Immature Granulocytes % (auto) 0.3 %; Lymphocytes # (auto) 2.25 K/uL (1.2-3.4); Lymphocytes % (auto) 30.2 %; Mean Corpuscular Hemoglobin 40.2 pg (25.0-34.0); Mean Corpuscular Hgb Conc 37.1 g/dL (32.0-36.0); Mean Corpuscular Volume 108.4 fL (80.0-100.0); Mean Platelet Volume 9.5 fL (9.4-12.3); Monocytes % (auto) 6.7 %; Neutrophils # (auto) 4.52 K/uL (1.4-6.5); Neutrophils % (auto) 60.7 %; Nucleated RBC # (auto) 0.04 K/uL (0-0); Nucleated RBC % (auto) 0.5 %; Platelet Count 221 K/uL (130-400); RDW Coefficient of Variation 17.5 % (11.5-14.5); RDW Standard Deviation 69.6 fL (36.4-46.3); Red Blood Count 2.14 M/uL (3.93-5.22); White Blood Count 7.45 K/ul (4.8-10.8)
[2021-12-20] MEDS ORDERED: METOCLOPRAMIDE HCL INJ 5 MG/ML 2 ML VIAL IV STA (21:45)
[2021-12-20] MEDS ORDERED: HYDROmorphone INJ 0.5 MG/0.5 ML SYR IV PRN (21:45)
[2021-12-20] MEDS ORDERED: diphenhydrAMINE 50 MG/ML VIAL IV STA (21:45)
[2021-12-20] MEDS ORDERED: SODIUM CHLORIDE 0.9% 1000ML 1,000 ML IV ONE ×2 (21:45→23:27)
[2021-12-20 22:23] LABS: Appearance Urine Clear (Clear); Bilirubin Urine Negative (Negative); Blood Urine Negative (Negative); Color Urine Orange; Glucose Urine UA Negative (Negative); Ketones Urine Negative (Negative); Leukocyte Esterase Urine Negative (Negative); Nitrite Urine Negative (Negative); Protein Urine Negative (Negative); Specific Gravity Urine 1.005 (1.000-1.030); Urobilinogen Urine Negative (Negative)
[2021-12-20 22:24] LABS: Reticulocyte % 6.2 % (0.5-2.0); Reticulocytes # 0.13 10^6/uL (0.02-0.10)
[2021-12-20] MEDS ORDERED: OPTIRAY 320 500ml IV ONE (22:30)
[2021-12-20 22:37] LABS: Magnesium 1.8 mg/dl (1.7-2.4)
--- NOTE | 2021-12-20 22:42 | Emergency Department Note ---
History of Present Illness General Chief complaint: Dizziness Stated complaint: PAIN ALL OVER, DIZZINESS, Time Seen by Provider: 12/20/21 21:45 History of Present Illness Maximum Pain Intensity: 7 This 21-year-old with sickle cell disease presents to the ER complaining of sickle cell crisis with headache dizziness and severe abdominal pain Location: Generalized Quality: Weak and dizzy Severity: Severe Duration: Past day Timing: Started yesterday Context: Pain got worse and patient returned Modifying factors: better with rest; worse with activities Patient denies chest pain, fevers, flulike illness. She states her belly pain is worse than normal. She tried her fentanyl and morphine with no relief of symptoms. Home Medications Medication Instructions Recorded Confirmed Type folic acid 1 mg tablet 2 mg PO HS 01/31/21 12/20/21 History hydroxyurea 500 mg capsule 1,000 mg PO BID 01/31/21 12/20/21 History cholecalciferol (vitamin D3) 25 25 mcg PO HS 08/13/21 12/20/21 History mcg (1,000 unit) tablet (Vitamin D3) polyethylene glycol 3350 17 17 g PO DAILY PRN Constipation 08/13/21 12/20/21 History gram/dose oral powder naloxone 4 mg/actuation nasal 4 mg intranasal UD PRN opiod 10/13/21 12/20/21 History spray (Narcan) overdose fentanyl 12 mcg/hr transdermal 12 mcg transdermal Q3D #10 ea 11/04/21 12/20/21 Rx patch morphine 15 mg immediate release 15 mg PO Q8H PRN pain #90 tabs 11/04/21 12/20/21 Rx tablet ondansetron 4 mg disintegrating 4 mg PO TID #30 tabs 11/07/21 12/20/21 Rx tablet meclizine 25 mg tablet 25 mg PO TID PRN Dizziness 12/20/21 12/20/21 History Allergies Allergy/AdvReac Type Severity Reaction Status Date / Time adhesive Allergy Intermediate Blister Verified 12/21/21 00:44 Past Med/Surg History Medical History Acute dehydration Acute leg pain Borderline personality disorder Chest pain Chronic pain Constipation Depression with suicidal ideation Intractable pain Murmur, cardiac Nausea Overdose Overdose Person under investigation for COVID-19 Pneumonia Pseudoseizures Seizure-like activity Seizure-like activity Sickle cell anemia Sickle cell crisis Suicidal ideation Suicide gesture Surgical History No pertinent past surgical history Family History Mother Hypertension Father Ulcer Other Family history non-contributory Social History Smoking Status: Never smoker Tobacco Type: Cigarettes Second Hand Exposure: Yes; Hx Alcohol Use: Yes Alcohol type: wine Hx Substance Use: No Preferred Language: Croatian Communication Ability: Effective Lead Recoverer Required: No Beliefs That Will Affect Care: None marital status: Single Current Living Situation: Other Current Living Situation Comment: roommate 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 current occupation: [employer] major Feels Safe at Home: Yes Assistive Devices: Walker Review of Systems A total of 10 systems reviewed and were otherwise negative Physical Exam Vital Signs Vital Signs - 24 hr 12/20/21 19:52 12/20/21 23:02 Temperature 36.4 C L Temperature Source Temporal Artery Scan Pulse Rate 77 Pulse Rate [Finger] 55 L Respiratory Rate 20 18 Respiratory Effort / Characteristics Non-Labored Spontaneous Non-Labored Spontaneous Respiratory Depth Normal Normal Respiratory Pattern Regular Blood Pressure 104/59 L Blood Pressure [Right Arm] 90/51 L Blood Pressure Mean 74 Blood Pressure Mean [Right Arm] 64 Blood Pressure Position [Right Arm] Lying Pulse Oximetry 100 97 Oxygen Delivery Method Room Air Room Air Sepsis New/Unexplained Change in Mental Status N/A Sepsis Action Taken by Nursing No Action Required VITALS: Vitals are noted on the nurse's note and reviewed by myself. Vital signs stable. GENERAL: Pleasant female who appears in pain, in no acute distress, nondiaphoretic, well-developed well-nourished. SKIN: The skin was without rashes, erythema, edema, or bruising. There is no tenting of the skin. Capillary reflex less than 2 seconds. HEAD: Normocephalic atraumatic. EARS: External auditory canals clear, tympanic membranes pearly ulrich without erythema or effusion bilaterally. EYES: Pupils equal round and reactive to light and accommodation. Conjunctivae without injection, sclerae without icterus. Extraocular movements intact. NOSE: Patent, turbinates without inflammation or discharge. No sinus tenderness. MOUTH: Mucous membranes moist. Pharynx without erythema or exudate. Uvula midline. Airway patent. Tongue does not deviate. NECK: Supple without nuchal rigidity. No lymphadenopathy. No thyromegaly. Cer vical spine is nontender. No JVD. HEART: Regular rate and rhythm LUNGS: Clear to auscultation bilaterally without wheezes, rales or rhonchi. No retractions or accessory muscle use. ABDOMEN: Positive bowel sounds x 4. Normal tympanic percussion. Soft, diffusely tender to palpation, without masses or organomegaly. Youngblood sign negative. No guarding or rebound tenderness. No CVA tenderness MUSCULOSKELETAL: No muscle atrophy, erythema, or edema noted. NEURO: Patient was alert and oriented to person place and time. Normal sensation to light and sharp touch. No focal neurological deficits. Course Administered Medications Discontinued Medications Diphenhydramine HCl (Diphenhydramine 50 Mg/Ml Vial) 25 mg IV NOW STA Stop: 12/20/21 21:46 Last Admin: 12/20/21 21:56 Dose: 25 mg Documented By: PRETTY Hydromorphone HCl (Hydromorphone Inj 0.5 Mg/0.5 Ml Syr) 0.5 mg IV Q15M PRN PRN Reason: Pain Stop: 01/03/22 21:44 Last Admin: 12/20/21 21:55 Dose: 0.5 mg Documented By: PRETTY Hydromorphone HCl (Hydromorphone Inj 1 Mg/Ml Syringe) Confirm Administered Dose 1 mg .ROUTE .STK-MED ONE Stop: 12/21/21 00:24 Last Admin: 12/21/21 00:25 Dose: 1 mg Documented By: Sodium Chloride (Nss 1000ml) 1,000 mls @ 999 mls/hr IV .Q1H1M ONE Stop: 12/20/21 22:45 Last Infusion: 12/21/21 00:05 Dose: 0 mls/hr Documented By: Admin: 12/20/21 21:55 Dose: 999 mls/hr Documented By: PRETTY Sodium Chloride (Nss 1000ml) 1,000 mls @ 999 mls/hr IV .Q1H1M ONE Stop: 12/21/21 00:27 Last Admin: 12/21/21 00:24 Dose: 999 mls/hr Documented By: Ioversol (Optiray 320 500ml) 111 ml IV ONCE ONE Stop: 12/20/21 22:31 Last Admin: 12/20/21 22:31 Dose: 111 ml Documented By: KENA Metoclopramide HCl (Metoclopramide Hcl Inj 5 Mg/Ml 2 Ml Vial) 10 mg IV NOW STA Stop: 12/20/21 21:46 Last Admin: 12/20/21 21:55 Dose: 10 mg Documented By: PRETTY Medical Decision Making Medical Records Attestation: I reviewed the patient's medical records. Home Medications Current Medication List: was personally reviewed by me Laboratory Data Attestation: I reviewed the patient's lab results. Result diagrams: 12/20/21 21:08 12/20/21 20:15 Lab Results 12/20/21 12/20/21 12/20/21 Range/Units 20:15 20:15 20:15 WBC Cancelled RBC Cancelled Hgb Cancelled Hct Cancelled MCV Cancelled MCH Cancelled MCHC Cancelled RDW Std Deviation Cancelled RDW Coeff of Nando Cancelled Plt Count Cancelled MPV Cancelled Immature Gran % (Auto) Cancelled Neut % (Auto) Cancelled Lymph % (Auto) Cancelled [place] % (Auto) Cancelled Eos % (Auto) Cancelled Baso % (Auto) Cancelled Reticulocyte % (Auto) (0.5-2.0) % Neut # (Auto) Cancelled Lymph # (Auto) Cancelled [place] # (Auto) Cancelled Eos # (Auto) Cancelled Baso # (Auto) Cancelled Reticulocyte # (0.02-0.10) 10^6/uL Immature Gran # (Auto) Cancelled Absolute Nucleated RBC Cancelled Nucleated RBC % (auto) Cancelled Neutrophils % (Manual) Cancelled Band Neutrophils % Cancelled Lymphocytes % (Manual) Cancelled Prolymphocyte % Cancelled Reactive Lymphs % (Man) Cancelled Monocytes % (Manual) Cancelled Eosinophils % (Manual) Cancelled Basophils % (Manual) Cancelled Metamyelocytes % (Man) Cancelled Myelocytes % (Man) Cancelled Promyelocytes % (Man) Cancelled Blast Cells % (Manual) Cancelled Plasma Cell % (Manual) Cancelled Other Cells % Cancelled Nucleated RBC % Cancelled Neutrophils # (Manual) Cancelled Band Neutrophils # Cancelled Total Absolute Neuts Cancelled Lymphocytes # (Manual) Cancelled Prolymphocyte # Cancelled Reactive Lymphs # Cancelled Total Abs Lymphocytes Cancelled Monocytes # (Manual) Cancelled Eosinophils # (Manual) Cancelled Basophils # (Manual) Cancelled Metamyelocytes # (Man) Cancelled Myelocytes # (Manual) Cancelled Promyelocytes # (Man) Cancelled Blast Cells # (Man) Cancelled Plasma Cell # (Manual) Cancelled Other Cells # Cancelled Nucleated RBCs # (Man) Cancelled Hypersegmented Neuts Cancelled Hyposegmented Neuts Cancelled Hypogranular Neuts Cancelled Large Granular Lymphs Cancelled # Lrg Granular Lymphs Cancelled Hairy Cells Cancelled Smudge Cells Cancelled Toxic Granulation Cancelled Toxic Vacuolation Cancelled Dohle Bodies Cancelled Coral Rods Cancelled Platelet Estimate Cancelled Hypogranular Platelets Cancelled Clumped Platelets Cancelled Giant Platelets Cancelled Platelet Satelliting Cancelled RBC Morphology Cancelled Polychromasia Cancelled Hypochromasia Cancelled Poikilocytosis Cancelled Basophilic Stippling Cancelled Anisocytosis Cancelled Microcytosis Cancelled Macrocytosis Cancelled Spherocytes Cancelled Pappenheimer Bodies Cancelled Sickle Cells Cancelled Target Cells Cancelled Tear Drop Cells Cancelled Ovalocytes Cancelled Stomatocytes Cancelled [place] Bodies Cancelled Echinocytes Cancelled Acanthocytes (Spur) Cancelled Rouleaux Cancelled RBC Agglutinates Cancelled Schistocytes Cancelled Sezary Cell Cancelled Sodium 138 (136-145) mmol/L Potassium 3.8 (3.5-5.1) mmol/L Chloride 106 (98-107) mmol/L Carbon Dioxide 26 (21-32) mmol/L Anion Gap 6 (3-11) BUN 5 L (6-23) mg/dl Creatinine 0.47 L (0.6-1.2) mg/dl Est Cr Clr Drug Dosing 174.3 ml/min Est GFR ( Amer) > 150.0 ml/min Est GFR (Non-Af Amer) 139.2 ml/min BUN/Creatinine Ratio 10.6 (10-20) Glucose 97 (70-99(Fasting)) mg/dl Calcium 8.9 (8.5-10.1) mg/dl Magnesium 1.8 (1.7-2.4) mg/dl Total Bilirubin 2.0 H (0.2-1.0) mg/dl AST 22 (13-39) U/L ALT 7 (7-52) U/L Alkaline Phosphatase 49 (34-104) U/L Lactate Dehydrogenase Troponin I High Sens 219.9 H* D (0-14) pg/ml Total Protein 7.2 (6.0-8.3) gm/dl Albumin 4.2 (3.4-5.0) gm/dl Globulin 3.0 (2.5-4.0) gm/dl Albumin/Globulin Ratio 1.4 (0.9-2) TSH (0.300-4.500) uIu/ml HCG, Qual (Negative) Urine Color Urine Appearance (Clear) Urine pH (4.5-7.5) Ur Specific [place] (1.000-1.030) Urine Protein (Negative) Urine Glucose (UA) (Negative) Urine Ketones (Negative) Urine Blood (Negative) Urine Nitrite (Negative) Urine Bilirubin (Negative) Urine Urobilinogen (Negative) Ur Leukocyte Esterase (Negative) POC Ur Test (NEG) SARS-CoV-2 (PCR) (Negative) Influenza Type A (PCR) (Neg) Influenza Type B (PCR) (Neg) RSV (RT-PCR) (Neg) Blood Parasites ID Cancelled 12/20/21 12/20/21 12/20/21 Range/Units 20:15 20:15 20:20 WBC RBC Hgb Hct MCV MCH MCHC RDW Std Deviation RDW Coeff of Nando Plt Count MPV Immature Gran % (Auto) Neut % (Auto) Lymph % (Auto) [place] % (Auto) Eos % (Auto) Baso % (Auto) Reticulocyte % (Auto) (0.5-2.0) % Neut # (Auto) Lymph # (Auto) [place] # (Auto) Eos # (Auto) Baso # (Auto) Reticulocyte # (0.02-0.10) 10^6/uL Immature Gran # (Auto) Absolute Nucleated RBC Nucleated RBC % (auto) Neutrophils % (Manual) Band Neutrophils % Lymphocytes % (Manual) Prolymphocyte % Reactive Lymphs % (Man) Monocytes % (Manual) Eosinophils % (Manual) Basophils % (Manual) Metamyelocytes % (Man) Myelocytes % (Man) Promyelocytes % (Man) Blast Cells % (Manual) Plasma Cell % (Manual) Other Cells % Nucleated RBC % Neutrophils # (Manual) Band Neutrophils # Total Absolute Neuts Lymphocytes # (Manual) Prolymphocyte # Reactive Lymphs # Total Abs Lymphocytes Monocytes # (Manual) Eosinophils # (Manual) Basophils # (Manual) Metamyelocytes # (Man) Myelocytes # (Manual) Promyelocytes # (Man) Blast Cells # (Man) Plasma Cell # (Manual) Other Cells # Nucleated RBCs # (Man) Hypersegmented Neuts Hyposegmented Neuts Hypogranular Neuts Large Granular Lymphs # Lrg Granular Lymphs Hairy Cells Smudge Cells Toxic Granulation Toxic Vacuolation Dohle Bodies Coral Rods Platelet Estimate Hypogranular Platelets Clumped Platelets Giant Platelets Platelet Satelliting RBC Morphology Polychromasia Hypochromasia Poikilocytosis Basophilic Stippling Anisocytosis Microcytosis Macrocytosis Spherocytes Pappenheimer Bodies Sickle Cells Target Cells Tear Drop Cells Ovalocytes Stomatocytes [place] Bodies Echinocytes Acanthocytes (Spur) Rouleaux RBC Agglutinates Schistocytes Sezary Cell Sodium (136-145) mmol/L Potassium (3.5-5.1) mmol/L Chloride (98-107) mmol/L Carbon Dioxide (21-32) mmol/L Anion Gap (3-11) BUN (6-23) mg/dl Creatinine (0.6-1.2) mg/dl Est Cr Clr Drug Dosing ml/min Est GFR ( Amer) ml/min Est GFR (Non-Af Amer) ml/min BUN/Creatinine Ratio (10-20) Glucose (70-99(Fasting)) mg/dl Calcium (8.5-10.1) mg/dl Magnesium (1.7-2.4) mg/dl Total Bilirubin (0.2-1.0) mg/dl AST (13-39) U/L ALT (7-52) U/L Alkaline Phosphatase (34-104) U/L Lactate Dehydrogenase TNP Troponin I High Sens (0-14) pg/ml Total Protein (6.0-8.3) gm/dl Albumin (3.4-5.0) gm/dl Globulin (2.5-4.0) gm/dl Albumin/Globulin Ratio (0.9-2) TSH 2.076 (0.300-4.500) uIu/ml HCG, Qual (Negative) Urine Color Acra Urine Appearance Clear (Clear) Urine pH 7.0 (4.5-7.5) Ur Specific [place] 1.005 (1.000-1.030) Urine Protein Negative (Negative) Urine Glucose (UA) Negative (Negative) Urine Ketones Negative (Negative) Urine Blood Negative (Negative) Urine Nitrite Negative (Negative) Urine Bilirubin Negative (Negative) Urine Urobilinogen Negative (Negative) Ur Leukocyte Esterase Negative (Negative) POC Ur Test (NEG) SARS-CoV-2 (PCR) (Negative) Influenza Type A (PCR) (Neg) Influenza Type B (PCR) (Neg) RSV (RT-PCR) (Neg) Blood Parasites ID 12/20/21 12/20/21 12/20/21 Range/Units 21:08 21:08 21:09 WBC 7.45 RBC 2.14 L Hgb 8.6 L Hct 23.2 L MCV 108.4 H MCH 40.2 H MCHC 37.1 H RDW Std Deviation 69.6 H RDW Coeff of Nando 17.5 H Plt Count 221 MPV 9.5 Immature Gran % (Auto) 0.3 Neut % (Auto) 60.7 Lymph % (Auto) 30.2 [place] % (Auto) 6.7 Eos % (Auto) 1.7 Baso % (Auto) 0.4 Reticulocyte % (Auto) 6.2 H (0.5-2.0) % Neut # (Auto) 4.52 Lymph # (Auto) 2.25 [place] # (Auto) 0.50 Eos # (Auto) 0.13 Baso # (Auto) 0.03 Reticulocyte # 0.13 H (0.02-0.10) 10^6/uL Immature Gran # (Auto) 0.02 Absolute Nucleated RBC 0.04 H Nucleated RBC % (auto) 0.5 Neutrophils % (Manual) Band Neutrophils % Lymphocytes % (Manual) Prolymphocyte % Reactive Lymphs % (Man) Monocytes % (Manual) Eosinophils % (Manual) Basophils % (Manual) Metamyelocytes % (Man) Myelocytes % (Man) Promyelocytes % (Man) Blast Cells % (Manual) Plasma Cell % (Manual) Other Cells % Nucleated RBC % Neutrophils # (Manual) Band Neutrophils # Total Absolute Neuts Lymphocytes # (Manual) Prolymphocyte # Reactive Lymphs # Total Abs Lymphocytes Monocytes # (Manual) Eosinophils # (Manual) Basophils # (Manual) Metamyelocytes # (Man) Myelocytes # (Manual) Promyelocytes # (Man) Blast Cells # (Man) Plasma Cell # (Manual) Other Cells # Nucleated RBCs # (Man) Hypersegmented Neuts Hyposegmented Neuts Hypogranular Neuts Large Granular Lymphs # Lrg Granular Lymphs Hairy Cells Smudge Cells Toxic Granulation Toxic Vacuolation Dohle Bodies Coral Rods Platelet Estimate Hypogranular Platelets Clumped Platelets Giant Platelets Platelet Satelliting RBC Morphology Polychromasia Hypochromasia Poikilocytosis Basophilic Stippling Anisocytosis Microcytosis Macrocytosis Spherocytes Pappenheimer Bodies Sickle Cells Target Cells Tear Drop Cells Ovalocytes Stomatocytes [place] Bodies Echinocytes Acanthocytes (Spur) Rouleaux RBC Agglutinates Schistocytes Sezary Cell Sodium (136-145) mmol/L Potassium (3.5-5.1) mmol/L Chloride (98-107) mmol/L Carbon Dioxide (21-32) mmol/L Anion Gap (3-11) BUN (6-23) mg/dl Creatinine (0.6-1.2) mg/dl Est Cr Clr Drug Dosing ml/min Est GFR ( Amer) ml/min Est GFR (Non-Af Amer) ml/min BUN/Creatinine Ratio (10-20) Glucose (70-99(Fasting)) mg/dl Calcium (8.5-10.1) mg/dl Magnesium (1.7-2.4) mg/dl Total Bilirubin (0.2-1.0) mg/dl AST (13-39) U/L ALT (7-52) U/L Alkaline Phosphatase (34-104) U/L Lactate Dehydrogenase Troponin I High Sens (0-14) pg/ml Total Protein (6.0-8.3) gm/dl Albumin (3.4-5.0) gm/dl Globulin (2.5-4.0) gm/dl Albumin/Globulin Ratio (0.9-2) TSH (0.300-4.500) uIu/ml HCG, Qual Negative (Negative) Urine Color Urine Appearance (Clear) Urine pH (4.5-7.5) Ur Specific [place] (1.000-1.030) Urine Protein (Negative) Urine Glucose (UA) (Negative) Urine Ketones (Negative) Urine Blood (Negative) Urine Nitrite (Negative) Urine Bilirubin (Negative) Urine Urobilinogen (Negative) Ur Leukocyte Esterase (Negative) POC Ur Test (NEG) SARS-CoV-2 (PCR) (Negative) Influenza Type A (PCR) (Neg) Influenza Type B (PCR) (Neg) RSV (RT-PCR) (Neg) Blood Parasites ID 12/20/21 12/20/21 12/20/21 Range/Units 22:05 22:11 23:27 WBC RBC Hgb Hct MCV MCH MCHC RDW Std Deviation RDW Coeff of Nando Plt Count MPV Immature Gran % (Auto) Neut % (Auto) Lymph % (Auto) [place] % (Auto) Eos % (Auto) Baso % (Auto) Reticulocyte % (Auto) (0.5-2.0) % Neut # (Auto) Lymph # (Auto) [place] # (Auto) Eos # (Auto) Baso # (Auto) Reticulocyte # (0.02-0.10) 10^6/uL Immature Gran # (Auto) Absolute Nucleated RBC Nucleated RBC % (auto) Neutrophils % (Manual) Band Neutrophils % Lymphocytes % (Manual) Prolymphocyte % Reactive Lymphs % (Man) Monocytes % (Manual) Eosinophils % (Manual) Basophils % (Manual) Metamyelocytes % (Man) Myelocytes % (Man) Promyelocytes % (Man) Blast Cells % (Manual) Plasma Cell % (Manual) Other Cells % Nucleated RBC % Neutrophils # (Manual) Band Neutrophils # Total Absolute Neuts Lymphocytes # (Manual) Prolymphocyte # Reactive Lymphs # Total Abs Lymphocytes Monocytes # (Manual) Eosinophils # (Manual) Basophils # (Manual) Metamyelocytes # (Man) Myelocytes # (Manual) Promyelocytes # (Man) Blast Cells # (Man) Plasma Cell # (Manual) Other Cells # Nucleated RBCs # (Man) Hypersegmented Neuts Hyposegmented Neuts Hypogranular Neuts Large Granular Lymphs # Lrg Granular Lymphs Hairy Cells Smudge Cells Toxic Granulation Toxic Vacuolation Dohle Bodies Coral Rods Platelet Estimate Hypogranular Platelets Clumped Platelets Giant Platelets Platelet Satelliting RBC Morphology Polychromasia Hypochromasia Poikilocytosis Basophilic Stippling Anisocytosis Microcytosis Macrocytosis Spherocytes Pappenheimer Bodies Sickle Cells Target Cells Tear Drop Cells Ovalocytes Stomatocytes [place] Bodies Echinocytes Acanthocytes (Spur) Rouleaux RBC Agglutinates Schistocytes Sezary Cell Sodium (136-145) mmol/L Potassium (3.5-5.1) mmol/L Chloride (98-107) mmol/L Carbon Dioxide (21-32) mmol/L Anion Gap (3-11) BUN (6-23) mg/dl Creatinine (0.6-1.2) mg/dl Est Cr Clr Drug Dosing ml/min Est GFR ( Amer) ml/min Est GFR (Non-Af Amer) ml/min BUN/Creatinine Ratio (10-20) Glucose (70-99(Fasting)) mg/dl Calcium (8.5-10.1) mg/dl Magnesium (1.7-2.4) mg/dl Total Bilirubin (0.2-1.0) mg/dl AST (13-39) U/L ALT (7-52) U/L Alkaline Phosphatase (34-104) U/L Lactate Dehydrogenase Troponin I High Sens 4.1 D (0-14) pg/ml Total Protein (6.0-8.3) gm/dl Albumin (3.4-5.0) gm/dl Globulin (2.5-4.0) gm/dl Albumin/Globulin Ratio (0.9-2) TSH (0.300-4.500) uIu/ml HCG, Qual (Negative) Urine Color Urine Appearance (Clear) Urine pH (4.5-7.5) Ur Specific [place] (1.000-1.030) Urine Protein (Negative) Urine Glucose (UA) (Negative) Urine Ketones (Negative) Urine Blood (Negative) Urine Nitrite (Negative) Urine Bilirubin (Negative) Urine Urobilinogen (Negative) Ur Leukocyte Esterase (Negative) POC Ur Test NEG (NEG) SARS-CoV-2 (PCR) NEGATIVE (Negative) Influenza Type A (PCR) Negative (Neg) Influenza Type B (PCR) Negative (Neg) RSV (RT-PCR) Negative (Neg) Blood Parasites ID 12/20/21 Range/Units 23:27 WBC RBC Hgb Hct MCV MCH MCHC RDW Std Deviation RDW Coeff of Nando Plt Count MPV Immature Gran % (Auto) Neut % (Auto) Lymph % (Auto) [place] % (Auto) Eos % (Auto) Baso % (Auto) Reticulocyte % (Auto) (0.5-2.0) % Neut # (Auto) Lymph # (Auto) [place] # (Auto) Eos # (Auto) Baso # (Auto) Reticulocyte # (0.02-0.10) 10^6/uL Immature Gran # (Auto) Absolute Nucleated RBC Nucleated RBC % (auto) Neutrophils % (Manual) Band Neutrophils % Lymphocytes % (Manual) Prolymphocyte % Reactive Lymphs % (Man) Monocytes % (Manual) Eosinophils % (Manual) Basophils % (Manual) Metamyelocytes % (Man) Myelocytes % (Man) Promyelocytes % (Man) Blast Cells % (Manual) Plasma Cell % (Manual) Other Cells % Nucleated RBC % Neutrophils # (Manual) Band Neutrophils # Total Absolute Neuts Lymphocytes # (Manual) Prolymphocyte # Reactive Lymphs # Total Abs Lymphocytes Monocytes # (Manual) Eosinophils # (Manual) Basophils # (Manual) Metamyelocytes # (Man) Myelocytes # (Manual) Promyelocytes # (Man) Blast Cells # (Man) Plasma Cell # (Manual) Other Cells # Nucleated RBCs # (Man) Hypersegmented Neuts Hyposegmented Neuts Hypogranular Neuts Large Granular Lymphs # Lrg Granular Lymphs Hairy Cells Smudge Cells Toxic Granulation Toxic Vacuolation Dohle Bodies Coral Rods Platelet Estimate Hypogranular Platelets Clumped Platelets Giant Platelets Platelet Satelliting RBC Morphology Polychromasia Hypochromasia Poikilocytosis Basophilic Stippling Anisocytosis Microcytosis Macrocytosis Spherocytes Pappenheimer Bodies Sickle Cells Target Cells Tear Drop Cells Ovalocytes Stomatocytes [place] Bodies Echinocytes Acanthocytes (Spur) Rouleaux RBC Agglutinates Schistocytes Sezary Cell Sodium (136-145) mmol/L Potassium (3.5-5.1) mmol/L Chloride (98-107) mmol/L Carbon Dioxide (21-32) mmol/L Anion Gap (3-11) BUN (6-23) mg/dl Creatinine (0.6-1.2) mg/dl Est Cr Clr Drug Dosing ml/min Est GFR ( Amer) ml/min Est GFR (Non-Af Amer) ml/min BUN/Creatinine Ratio (10-20) Glucose (70-99(Fasting)) mg/dl Calcium (8.5-10.1) mg/dl Magnesium (1.7-2.4) mg/dl Total Bilirubin (0.2-1.0) mg/dl AST (13-39) U/L ALT (7-52) U/L Alkaline Phosphatase (34-104) U/L Lactate Dehydrogenase 214 Troponin I High Sens (0-14) pg/ml Total Protein (6.0-8.3) gm/dl Albumin (3.4-5.0) gm/dl Globulin (2.5-4.0) gm/dl Albumin/Globulin Ratio (0.9-2) TSH (0.300-4.500) uIu/ml HCG, Qual (Negative) Urine Color Urine Appearance (Clear) Urine pH (4.5-7.5) Ur Specific [place] (1.000-1.030) Urine Protein (Negative) Urine Glucose (UA) (Negative) Urine Ketones (Negative) Urine Blood (Negative) Urine Nitrite (Negative) Urine Bilirubin (Negative) Urine Urobilinogen (Negative) Ur Leukocyte Esterase (Negative) POC Ur Test (NEG) SARS-CoV-2 (PCR) (Negative) Influenza Type A (PCR) (Neg) Influenza Type B (PCR) (Neg) RSV (RT-PCR) (Neg) Blood Parasites ID Imaging Data Attestation: I personally reviewed and interpreted this imaging study as follows: MDM Narrative Prior records/ancillary studies reviewed and summarized above. Nursing notes reviewed. Additional history obtained from nursing. The patient's history was concerning for sickle cell crisis. Differential diagnosis: Etiologies such as sickle cell crisis, metabolic, infection, hypo/hyperglycemia, electrolyte abnormalities, cardiac sources, intracerebral event, toxicologic, neurologic, as well as others were entertained. Physical examination: As above. ER treatment provided: IV Lock An order was placed for continuous cardiac monitoring. The monitor shows a rate of 60-100 with a sinus rhythm. IV fluids, Dilaudid, Reglan, Benadryl On reassessment the patient felt better. Diagnostics interpretation by me: ECG: Ordered for dizziness Patient refused EKG initially but finally became agreeable when trop was + EKG: Normal sinus, normal intervals, T wave inversion V2. Impression normal sin us rhythm interpreted by myself I think arrhythmia is unlikely. EKG shows normal sinus rhythm with no interval abnormalities such as QT prolongation or WPW. There are no findings to suggest Brugada syndrome. Cardiac monitoring in the emergency department reveals no tachycardic or bradycardic dysrhythmia. Hypertrophic cardiomyopathy was considered but there are no clear historical elements pointing toward this. EKG is not suggestive. The QRS voltage is not extremely large and there are no suggestive Q waves. The labs revealed anemia, minimally elevated retic count Elevated troponin repeat was ordered Imaging studies: CT HEAD: No ICH, mass effect or edema. No evidence of acute cortical stroke. Visualized sinuses and mastoid air cells are clear. Radiologist:Celeste Serna MD CT ABDOMEN & PELVIS With Contrast: Impression: There is mild diffuse urinary bladder wall thickening Trace pelvic free fluid. No hydronephrosis. 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 Increased density in the axial skeleton consistent with history of sickle cell disease. Radiologist: Peter Serna MD CTA HEAD: Impression: No acute intracranial arterial occlusion. Anterior, middle and posterior cerebral artery show normal contrast enhancement. Radiologist: Peter Serna MD CTA NECK: Impression: No evidence of hemodynamically significant carotid stenosis. Patent vertebral arteries. H-shaped T3 and T4 vertebral bodies are consistent with history of sickle cell disease. Radiologist: Peter Serna MD chest x-ray with no acute consolidation, pneumothorax or free air per my interpretation Consultation: A consultation was placed with the hospitalist. The case was discussed and diagnostics were reviewed. The patient was evaluated in the ER for further treatment. Exam and history seem consistent with sickle cell crisis, dizziness, GARCIA, abd pain, + trop. Imaging was reviewed. Labs were reviewed. Patient required multiple rounds of pain meds. Medicine was consulted. She will be evaluated for possible admission. Patient denies any chest pain or shortness of breath to me. She was satting well on room air. By the evaluation outlined above emergent etiologies such as infection, electrolyte abnormalities, intracerebral event, toxologic, neurologic, abnormalities blood glucose, metabolic, as well as others were deemed relatively unlikely. The pt informed about the findings as listed above. All questions were answered and pleased with the treatment. The chart was completed utilizing [employer] voice recognition software. Grammatical errors, random word insertions, pronoun errors, and incomplete sentences are an occassional consequence of this system due to software limitations, ambient noise, and hardware issues. Any formal questions or concerns about the content, text, or information contained within the body of this dictation should be directly addressed to the physician surgical assistant certified for clarification. Impression & Plan Sickle cell crisis, Sickle cell anemia, Abdominal pain, acute, Dizziness, Headache, Elevated troponin Discharge Plan Visit Data Chief Complaint: Dizziness Stated Complaint: PAIN ALL OVER, DIZZINESS, ED Provider: Robert Mobley ED Midlevel Provider: Maria Del Carmen Ford Discharge Problem: Sickle cell crisis, Sickle cell anemia, Abdominal pain, acute, Dizziness, Headache, Elevated troponin Patient Disposition: Admitted As Inpatient Condition: Good Forms Stand Alone Forms: OpenROV Prescriptions Prescriptions: No Action polyethylene glycol 3350 17 gram/dose powder 17 g PO DAILY PRN (Reason: Constipation) cholecalciferol (vitamin D3) [Vitamin D3] 25 mcg (1,000 unit) Tablet 25 mcg PO HS meclizine 25 mg tablet 25 mg PO TID PRN (Reason: Dizziness) hydroxyurea 500 mg capsule 1,000 mg PO BID folic acid 1 mg Tablet 2 mg PO HS naloxone [Narcan] 4 mg/actuation spray,non-aerosol 4 mg INTRANASAL UD PRN (Reason: opiod overdose) morphine 15 mg tablet 15 mg PO Q8H PRN (Reason: pain) Qty: 90 0RF fentanyl 12 mcg/hr Patch 72 Hour 12 mcg transdermal Q3D Qty: 10 0RF Rx Instructions: CHANGED 12/19/21 ondansetron 4 mg tablet,disintegrating 4 mg PO TID Qty: 30 0RF Referrals Referrals: [facility] [Primary Care Provider] -
[2021-12-20 22:50] LABS: Troponin I High Sensitivity 219.9 pg/ml (0-14)
[2021-12-20 23:21] LABS: Pregnancy Test, Serum Negative (Negative)
[2021-12-20 23:24] LABS: Influenza A virus by PCR Negative (Neg); Influenza B virus by PCR Negative (Neg); RSV by PCR Negative (Neg); SARS CoV2 RNA(COVID-19)Cepheid NEGATIVE (Negative)
--- NOTE | 2021-12-20 23:42 | History & Physical Report ---
Date of Service December 20, 2021 Assessment & Plan (1) Generalized pain: Plan: Donta Trevizo) is a 20yo female with sickle cell disease and chronic pain who presented to the ER with a three-day history of worsening generalized pain, nausea, and intermittent dizziness, which she describes as similar to prior acute sickle episodes. Severe generalized pain, nausea, dizziness, sickle cell anemia Patient with sickle cell disease presenting with severe pain, nausea, and dizziness On admission, BP slightly soft, vitals otherwise stable CXR without acute abnormality, oxygen saturation adequate - no evidence of acute chest syndrome In the ED, received NSS 2L, dilaudid, and metoclopramide Admission labs notable for anemia (8.6), hyperbilirubinemia (2.0); hsTroponin not elevated Patient occasionally requires transfusions during acute pain episodes; type/screen ordered Etiology likely multifactorial: sickle cell disease acute pain crisis +/- opioid hyperalgesia Initial pain control plan: APAP 1000mg PO q8h scheduled Dilauded 1mg IV q1h prn overnight to get acute pain episode under control Continue home fentanyl patch (last applied 12/19) Once adequate pain control is achieved, transition back to home fentanyl patch Will hold off on NSAIDs given risk of ATN with dehydration in the setting of SCD acute pain crisis Can use warming packs for pain as needed;avoid ice packs Continue 1/2 NSS @ 80mL/hr overnight (one bag ordered) Continue home hydroxyurea, folate Zofran prn nausea VTE prophylaxis with SCDs, encourage ambulation Incentive spirometry q1hWA PT/OT ordered Trend daily CBC Hypotension Patient with intermittent hypotension which is not uncommon for her during sic kle cell acute pain episodes, in part d/t poor PO intake NSS 2L given in ED Continue 1/2 NSS @ 80mL/hr (one bag ordered) Encourage PO intake, continue to monitor, additional IVF boluses as needed Hyperbilirubinemia Tbili on admission 2.0, LFTs otherwise wnl; patient has a long history of hyperbilirubinemia during acute pain episodes Abdomen nontender on exam Suspect elevated bilirubin is secondary to increased RBC turnover d/t sickle crisis Trend daily CMP GERD: added pantoprazole 40mg IV bid; continue zofran as above Constipation: continue home miralax FEN: regular diet, 1/2 NSS @ 80mL/hr (one bag ordered) Code status: full code VTE ppx: SCDs PT/OT: ordered Dispo: med/surg (2) Elevated bilirubin: (3) Elevated troponin: (4) Nausea: (5) Sickle cell crisis: History of Present Illness Primary Care Provider: [facility] Donta Trevizo) is a 20yo female with sickle cell disease and chronic pain who presented to the ER with a three-day history of worsening generalized pain, nausea, and intermittent dizziness, which she describes as similar to prior acute sickle episodes. Patient's sickle cell pain has been well-controlled over the past 1-2 months with fentanyl patches and oral morphine; however, her pain has been worsening for the past few days despite adherence to her pain regimen. Patient denies recent pain med overuse. Patient denies fever, chills, palpitations, SOB, vomiting, diarrhea, dysuria, numbness, tingling, weakness, or other symptoms. No recent travel or sick contacts. Upon arrival, vitals were notable for soft BP (90-100s/50s); no tachycardia, no tachypnea, patient afebrile, spO2 adequate on room air. Initial labs were notable for mild anemia (8.6) and elevated total bilirubin (2.0); platelets wnl, no electrolyte abnormalities, creatinine not elevated, LFTs wnl, covid PCR negative. Of note, initial hsTroponin was elevated to the 200s, but a two-hour repeat was wnl (4.1). In the ED, patient received dilaudid IV 0.5mg (x1), NSS 1L bolus (x2), and metoclopramide IV 10mg (x1). EKG: NSR, no overt ischemic change Imaging: CXR: no acute findings upon my read (official over-read pending) CT head: no ICH, mass effect, edema, or evidence of acute stroke CTA head/neck: no acute intracranial arterial occlusion CT abdomen/pelvis: mild diffuse bladder wall thickening, trace free fluid, no hydronephrosis, left femoral head with evidence of avascular necrosis Allergies Allergy/AdvReac Type Severity Reaction Status Date / Time adhesive Allergy Intermediate Blister Verified 12/21/21 00:44 Home Medications Medication Instructions Recorded Confirmed Type folic acid 1 mg tablet 2 mg PO HS 01/31/21 12/20/21 History hydroxyurea 500 mg capsule 1,000 mg PO BID 01/31/21 12/20/21 History cholecalciferol (vitamin D3) 25 25 mcg PO HS 08/13/21 12/20/21 History mcg (1,000 unit) tablet (Vitamin D3) polyethylene glycol 3350 17 17 g PO DAILY PRN Constipation 08/13/21 12/20/21 History gram/dose oral powder naloxone 4 mg/actuation nasal 4 mg intranasal UD PRN opiod 10/13/21 12/20/21 History spray (Narcan) overdose fentanyl 12 mcg/hr transdermal 12 mcg transdermal Q3D #10 ea 11/04/21 12/20/21 Rx patch morphine 15 mg immediate release 15 mg PO Q8H PRN pain #90 tabs 11/04/21 12/20/21 Rx tablet ondansetron 4 mg disintegrating 4 mg PO TID #30 tabs 11/07/21 12/20/21 Rx tablet meclizine 25 mg tablet 25 mg PO TID PRN Dizziness 12/20/21 12/20/21 History Past Med/Surg History Medical History Acute dehydration Acute leg pain Borderline personality disorder Chest pain Chronic pain Constipation Depression with suicidal ideation Intractable pain Murmur, cardiac Nausea Overdose Overdose Person under investigation for COVID-19 Pneumonia Pseudoseizures Seizure-like activity Seizure-like activity Sickle cell anemia Sickle cell crisis Suicidal ideation Suicide gesture Surgical History No pertinent past surgical history Family History Mother Hypertension Father Ulcer Other Family history non-contributory Social History Smoking Status: Never smoker Tobacco Type: Cigarettes Second Hand Exposure: Yes; Hx Alcohol Use: Yes Alcohol type: wine Hx Substance Use: No Preferred Language: Mohawk Communication Ability: Effective Junior Paralegal Required: No Beliefs That Will Affect Care: None marital status: Single Current Living Situation: Other Current Living Situation Comment: roommate 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 current occupation: [employer] major Feels Safe at Home: Yes Assistive Devices: Walker Physical Exam Physical Exam: Constitutional: tired-appearing, laying asleep in hospital bed, arousable, no acute distress HEENT: NCAT, no conjunctival injection, no scleral icterus CV: regular rhythm, no murmur appreciated, extremities well-perfused, no LE edema Resp: CTABL, no wheezes/rales/rhonchi appreciated, no increased work of breathing GI: soft, nondistended, nontender, BS normoactive Neuro: alert, oriented, no focal neurologic deficit appreciated Results & Data Results & Data ([facility]) Vital Signs (Past 12 Hours) Vital Signs Temp Pulse Pulse Resp BP BP Pulse Ox 12/20/21 23:02 55 L 18 90/51 L 97 12/20/21 19:52 36.4 C L 77 20 104/59 L 100 O2 Del Method 12/20/21 23:02 Room Air 12/20/21 19:52 Room Air Laboratory Results Laboratory Results WBC 7.45 K/ul (4.8-10.8) 12/20/21 21:08 RBC 2.14 M/uL (3.93-5.22) L 12/20/21 21:08 Hgb 8.6 g/dl (12.0-16.0) L 12/20/21 21:08 Hct 23.2 % (34.1-44.9) L 12/20/21 21:08 MCV 108.4 fL (80.0-100.0) H 12/20/21 21:08 MCH 40.2 pg (25.0-34.0) H 12/20/21 21:08 MCHC 37.1 g/dL (32.0-36.0) H 12/20/21 21:08 RDW Std Deviation 69.6 fL (36.4-46.3) H 12/20/21 21:08 RDW Coeff of Nando 17.5 % (11.5-14.5) H 12/20/21 21:08 Plt Count 221 K/uL (130-400) 12/20/21 21:08 MPV 9.5 fL (9.4-12.3) 12/20/21 21:08 Immature Gran % (Auto) 0.3 % 12/20/21 21:08 Neut % (Auto) 60.7 % 12/20/21 21:08 Lymph % (Auto) 30.2 % 12/20/21 21:08 Dare % (Auto) 6.7 % 12/20/21 21:08 Eos % (Auto) 1.7 % 12/20/21 21:08 Baso % (Auto) 0.4 % 12/20/21 21:08 Reticulocyte % (Auto) 6.2 % (0.5-2.0) H 12/20/21 21:08 Neut # (Auto) 4.52 K/uL (1.4-6.5) 12/20/21 21:08 Lymph # (Auto) 2.25 K/uL (1.2-3.4) 12/20/21 21:08 Dare # (Auto) 0.50 K/uL (0.24-0.82) 12/20/21 21:08 Eos # (Auto) 0.13 K/uL (0-0.50) 12/20/21 21:08 Baso # (Auto) 0.03 K/uL (0-0.2) 12/20/21 21:08 Reticulocyte # 0.13 10^6/uL (0.02-0.10) H 12/20/21 21:08 Immature Gran # (Auto) 0.02 K/uL (0.00-0.02) 12/20/21 21:08 Absolute Nucleated RBC 0.04 K/uL (0-0) H 12/20/21 21:08 Nucleated RBC % (auto) 0.5 % 12/20/21 21:08 Neutrophils % (Manual) Cancelled 12/20/21 20:15 Band Neutrophils % Cancelled 12/20/21 20:15 Lymphocytes % (Manual) Cancelled 12/20/21 20:15 Prolymphocyte % Cancelled 12/20/21 20:15 Reactive Lymphs % (Man) Cancelled 12/20/21 20:15 Monocytes % (Manual) Cancelled 12/20/21 20:15 Eosinophils % (Manual) Cancelled 12/20/21 20:15 Basophils % (Manual) Cancelled 12/20/21 20:15 Metamyelocytes % (Man) Cancelled 12/20/21 20:15 Myelocytes % (Man) Cancelled 12/20/21 20:15 Promyelocytes % (Man) Cancelled 12/20/21 20:15 Blast Cells % (Manual) Cancelled 12/20/21 20:15 Plasma Cell % (Manual) Cancelled 12/20/21 20:15 Other Cells % Cancelled 12/20/21 20:15 Nucleated RBC % Cancelled 12/20/21 20:15 Neutrophils # (Manual) Cancelled 12/20/21 20:15 Band Neutrophils # Cancelled 12/20/21 20:15 Total Absolute Neuts Cancelled 12/20/21 20:15 Lymphocytes # (Manual) Cancelled 12/20/21 20:15 Prolymphocyte # Cancelled 12/20/21 20:15 Reactive Lymphs # Cancelled 12/20/21 20:15 Total Abs Lymphocytes Cancelled 12/20/21 20:15 Monocytes # (Manual) Cancelled 12/20/21 20:15 Eosinophils # (Manual) Cancelled 12/20/21 20:15 Basophils # (Manual) Cancelled 12/20/21 20:15 Metamyelocytes # (Man) Cancelled 12/20/21 20:15 Myelocytes # (Manual) Cancelled 12/20/21 20:15 Promyelocytes # (Man) Cancelled 12/20/21 20:15 Blast Cells # (Man) Cancelled 12/20/21 20:15 Plasma Cell # (Manual) Cancelled 12/20/21 20:15 Other Cells # Cancelled 12/20/21 20:15 Nucleated RBCs # (Man) Cancelled 12/20/21 20:15 Hypersegmented Neuts Cancelled 12/20/21 20:15 Hyposegmented Neuts Cancelled 12/20/21 20:15 Hypogranular Neuts Cancelled 12/20/21 20:15 Large Granular Lymphs Cancelled 12/20/21 20:15 # Lrg Granular Lymphs Cancelled 12/20/21 20:15 Hairy Cells Cancelled 12/20/21 20:15 Smudge Cells Cancelled 12/20/21 20:15 Toxic Granulation Cancelled 12/20/21 20:15 Toxic Vacuolation Cancelled 12/20/21 20:15 Dohle Bodies Cancelled 12/20/21 20:15 Coral Rods Cancelled 12/20/21 20:15 Platelet Estimate Cancelled 12/20/21 20:15 Hypogranular Platelets Cancelled 12/20/21 20:15 Clumped Platelets Cancelled 12/20/21 20:15 Giant Platelets Cancelled 12/20/21 20:15 Platelet Satelliting Cancelled 12/20/21 20:15 RBC Morphology Cancelled 12/20/21 20:15 Polychromasia Cancelled 12/20/21 20:15 Hypochromasia Cancelled 12/20/21 20:15 Poikilocytosis Cancelled 12/20/21 20:15 Basophilic Stippling Cancelled 12/20/21 20:15 Anisocytosis Cancelled 12/20/21 20:15 Microcytosis Cancelled 12/20/21 20:15 Macrocytosis Cancelled 12/20/21 20:15 Spherocytes Cancelled 12/20/21 20:15 Pappenheimer Bodies Cancelled 12/20/21 20:15 Sickle Cells Cancelled 12/20/21 20:15 Target Cells Cancelled 12/20/21 20:15 Tear Drop Cells Cancelled 12/20/21 20:15 Ovalocytes Cancelled 12/20/21 20:15 Stomatocytes Cancelled 12/20/21 20:15 [place] Bodies Cancelled 12/20/21 20:15 Echinocytes Cancelled 12/20/21 20:15 Acanthocytes (Spur) Cancelled 12/20/21 20:15 Rouleaux Cancelled 12/20/21 20:15 RBC Agglutinates Cancelled 12/20/21 20:15 Schistocytes Cancelled 12/20/21 20:15 Sezary Cell Cancelled 12/20/21 20:15 Sodium 138 mmol/L (136-145) 12/20/21 20:15 Potassium 3.8 mmol/L (3.5-5.1) 12/20/21 20:15 Chloride 106 mmol/L (98-107) 12/20/21 20:15 Carbon Dioxide 26 mmol/L (21-32) 12/20/21 20:15 Anion Gap 6 (3-11) 12/20/21 20:15 BUN 5 mg/dl (6-23) L 12/20/21 20:15 Creatinine 0.47 mg/dl (0.6-1.2) L 12/20/21 20:15 Est Cr Clr Drug Dosing 174.3 ml/min 12/20/21 20:15 Est GFR ( Amer) > 150.0 ml/min 12/20/21 20:15 Est GFR (Non-Af Amer) 139.2 ml/min 12/20/21 20:15 BUN/Creatinine Ratio 10.6 (10-20) 12/20/21 20:15 Glucose 97 mg/dl (70-99(Fasting)) 12/20/21 20:15 Calcium 8.9 mg/dl (8.5-10.1) 12/20/21 20:15 Magnesium 1.8 mg/dl (1.7-2.4) 12/20/21 20:15 Total Bilirubin 2.0 mg/dl (0.2-1.0) H 12/20/21 20:15 AST 22 U/L (13-39) 12/20/21 20:15 ALT 7 U/L (7-52) 12/20/21 20:15 Alkaline Phosphatase 49 U/L (34-104) 12/20/21 20:15 Lactate Dehydrogenase 214 U/L (86-244) 12/20/21 23:27 Troponin I High Sens 4.1 pg/ml (0-14) D 12/20/21 23:27 Total Protein 7.2 gm/dl (6.0-8.3) 12/20/21 20:15 Albumin 4.2 gm/dl (3.4-5.0) 12/20/21 20:15 Globulin 3.0 gm/dl (2.5-4.0) 12/20/21 20:15 Albumin/Globulin Ratio 1.4 (0.9-2) 12/20/21 20:15 TSH 2.076 uIu/ml (0.300-4.500) 12/20/21 20:15 HCG, Qual Negative (Negative) 12/20/21 21:09 Urine Color [place] 12/20/21 20:20 Urine Appearance Clear (Clear) 12/20/21 20:20 Urine pH 7.0 (4.5-7.5) 12/20/21 20:20 Ur Specific [place] 1.005 (1.000-1.030) 12/20/21 20:20 Urine Protein Negative (Negative) 12/20/21 20:20 Urine Glucose (UA) Negative (Negative) 12/20/21 20:20 Urine Ketones Negative (Negative) 12/20/21 20:20 Urine Blood Negative (Negative) 12/20/21 20:20 Urine Nitrite Negative (Negative) 12/20/21 20:20 Urine Bilirubin Negative (Negative) 12/20/21 20:20 Urine Urobilinogen Negative (Negative) 12/20/21 20:20 Ur Leukocyte Esterase Negative (Negative) 12/20/21 20:20 POC Ur Test NEG (NEG) 12/20/21 22:11 SARS-CoV-2 (PCR) NEGATIVE (Negative) 12/20/21 22:05 Influenza Type A (PCR) Negative (Neg) 12/20/21 22:05 Influenza Type B (PCR) Negative (Neg) 12/20/21 22:05 RSV (RT-PCR) Negative (Neg) 12/20/21 22:05 Blood Parasites ID Cancelled 12/20/21 20:15 Supervising Physician Co-Signing Physician Notes Patient seen and examined, chart reviewed, case discussed with DR. German and I agree with the assessment and plan as documented above. In brief, patient is a 21yo female with history of SSA presenting with acute pain crisis. Hgb=8.6, Hct=23.2 which is near baseline Reticulocyte=6.2%, LDH is normal at 214, elevated Tbili consistent with VOC On exam she is resting comfortably, NAD Skin warm, dry, intact, no rashes/lesions HEENT -NC/AT, PERRL Heart - +S1/S2, regular Lungs - CTA, no rales/rhonchi/wheezes Abd - tenderness with no rebound/guarding Ext - warm, well perfused Labs and images reviewed Assessment/plan Suspect acute sickle cell pain crisis IV Dilaudid as above Fentanyl patches Hydration, O2 as needed Continue Hydroxyurea and Folic acid Remainder as above Resident Activity Tracking Resident Involvement: Resident Care Provided and Independent Living Specialist Coverage Note Care Provided: Adult [facility] Medicine
[2021-12-21] MEDS ORDERED: HYDROmorphone INJ 1 MG/ML SYRINGE ONE (00:23)
[2021-12-21] MEDS: ACETAMINOPHEN 500 MG TAB PO SCH ×3 (02:11→16:57)
--- NOTE | 2021-12-21 02:24 | Billing Data ---
Date of Service December 21, 2021 Coding Level of Care Code 77427 Initial Inpt Care Lvl 2
[2021-12-21] MEDS ORDERED: MELATONIN 3 MG TAB PO PRN (03:29)
[2021-12-21] MEDS ORDERED: SODIUM CHLORIDE 0.45 % 1,000 ML IV SCH (03:29)
[2021-12-21] MEDS ORDERED: NALOXONE NASAL SPRAY 4 MG ER HOMEPACK PRN (03:29)
[2021-12-21] MEDS ORDERED: NALOXONE HCL 0.4 MG/1 ML VIAL/CARP IV PRN (03:58)
[2021-12-21 04:18] LABS: Alanine Aminotransferase 6 U/L (7-52); Albumin Globulin Ratio 1.3 (0.9-2); Albumin Level 3.7 gm/dl (3.4-5.0); Alkaline Phosphatase 42 U/L (34-104); Anion Gap 4 (3-11); Aspartate Aminotransferase 13 U/L (13-39); BUN Creatinine Ratio 9.1 (10-20); Bilirubin,Total 1.7 mg/dl (0.2-1.0); Blood Urea Nitrogen 4 mg/dl (6-23); Calcium 8.7 mg/dl (8.5-10.1); Carbon Dioxide 25 mmol/L (21-32); Chloride 109 mmol/L (98-107); Creatinine Clr Calc Pharmacy 186.2 ml/min; Est GFR (African American) > 150.0 ml/min; Est GFR (Non-African American) 142.3 ml/min; Globulin 2.8 gm/dl (2.5-4.0); Glucose 91 mg/dl (70-99(Fasting)); Potassium 3.8 mmol/L (3.5-5.1); Sodium 138 mmol/L (136-145); Total Protein 6.5 gm/dl (6.0-8.3)
[2021-12-21] MEDS: HYDROXYUREA 500 MG CAP PO SCH ×3 (04:40→20:31)
[2021-12-21] MEDS: HYDROmorphone INJ 1 MG/ML SYRINGE IV PRN ×7 (04:41→20:30)
--- NOTE | 2021-12-21 06:50 | CT Scan Report ---
CT angio head w con CLINICAL HISTORY: 21 years-old Female with dizzy, pain, sickle cell crisis. Acute dizziness with h eadache COMPARISON STUDY: Head CT of same day TECHNIQUE: Following the IV administration of 111 cc of Optiray, CT angiogram of the brain was perfor med from the skull base to the vertex. Images are reviewed in the axial, sagittal, and coronal planes . 3-D MIPS images are created and assessed. IV contrast was administered without complication. All me asurements were obtained according to NASCET criteria. A dose lowering technique was utilized adherin g to the principles of ALARA. FINDINGS: CT ANGIOGRAM OF THE BRAIN: The imaged bilateral internal carotid arteries are patent. The bilateral anterior and middle cerebral arteries are also patent. The vertebrobasilar system and posterior cerebral arteries are widely perea nt. There is no aneurysm, high-grade stenosis, or proximal branch occlusion identified. Dural sinuses appear patent. IMPRESSION: Unremarkable CTA of the head. ACT 112: Negative or not required by law. The above report was generated using voice recognition software. It may contain grammatical, syntax o r spelling errors. Electronically signed by: Tre Jennings M.D. 12/21/2021 6:47 AM
--- NOTE | 2021-12-21 07:06 | CT Scan Report ---
HEAD CT NONCONTRAST CT DOSE: HISTORY: dizzy, sickle cell TECHNIQUE: Multiaxial CT images of the head were performed without the use of intravenous contrast. A utomated exposure control was utilized for this study. A dose lowering technique was utilized adheri ng to the principles of ALARA. Comparison: Head CT 06/15/2021. Findings: The paranasal sinuses and mastoid air cells are clear. The calvarium and skull base are int act. The ventricles and sulci are within normal limits. There is no mass, hematoma, midline shift, or acute infarct. Impression: No acute intracranial abnormality. ACT 112: Negative or not required by law. Electronically signed by: Cortes Fletcher M.D. 12/21/2021 7:05 AM
--- NOTE | 2021-12-21 07:07 | Hospitalist Progress Note ---
Date of Service December 21, 2021 Assessment & Plan (1) Generalized pain: Plan: Donta Trevizo) is a 20yo female with sickle cell disease and chronic pain who presented to the ER with a three-day history of worsening generalized pain, nausea, and intermittent dizziness, which she describes as similar to prior acute sickle episodes. Severe generalized pain, nausea, dizziness, sickle cell anemia Patient with sickle cell disease presenting with severe pain, nausea, and dizziness On admission, BP slightly soft, vitals otherwise stable CXR without acute abnormality, oxygen saturation adequate - no evidence of acute chest syndrome In the ED, received NSS 2L, dilaudid, and metoclopramide Admission labs notable for anemia (8.6), hyperbilirubinemia (2.0); hsTroponin not elevated Patient occasionally requires transfusions during acute pain episodes; type/screen ordered Etiology likely multifactorial: sickle cell disease acute pain crisis +/- opioid hyperalgesia Initial pain control plan: APAP 1000mg PO q8h scheduled Dilauded 1mg IV q1h prn overnight to get acute pain episode under control Consider weaning down to PO percocet as patient tolerates Continue home fentanyl patch (last applied 12/19) Once adequate pain control is achieved, transition back to home fentanyl patch Will hold off on NSAIDs given risk of ATN with dehydration in the setting of SCD acute pain crisis Can use warming packs for pain as needed;avoid ice packs Continue home hydroxyurea, folate Zofran prn nausea VTE prophylaxis with SCDs, encourage ambulation Incentive spirometry q1hWA PT/OT ordered Trend daily CBC Hypotension Patient with intermittent hypotension which is not uncommon for her during sickle cell acute pain episodes, in part d/t poor PO intake NSS 2L given in ED Continue 02/18 NSS @ 80mL/hr (one bag ordered) Encourage PO intake, continue to monitor, additional IVF boluses as needed Hyperbilirubinemia Tbili on admission 2.0, LFTs otherwise wnl; patient has a long history of hyperbilirubinemia during acute pain episodes Abdomen nontender on exam Suspect elevated bilirubin is secondary to increased RBC turnover d/t sickle crisis Trend daily CMP GERD: added pantoprazole 40mg IV bid; continue zofran as above Constipation: continue home miralax FEN: regular diet Code status: full code VTE ppx: SCDs PT/OT: ordered Dispo: med/surg (2) Elevated bilirubin: (3) Elevated troponin: (4) Nausea: (5) Sickle cell crisis: Admission and Anticipated Discharge Date Admission Date: December 21, 2021 Supervising Physician Co-Signing Physician Notes Patient seen and examined independently of PGY-2 Dr. Medley. Agree with history, exam findings, assessment and plan as outlined. In brief, James is a 20 year old female with sickle cell disease and associated chronic pain admitted with 3 days of worsening generalized pain, nausea and dizziness. She is sleeping comfortably this afternoon. VS and nursing notes reviewed Heart with regular rate and rhythm. Lungs are clear to auscultation throughout. Lab and imaging reviewed. 1. Sickle cell crisis pain. IVFs, APAP 1000mg q8h, dilaudid 1mg q1h PRN pain, home fentanyl patch, Zofran. Incentive spirometry. Continue home hydroxyurea and folate. 2. Hypotension. IVFs NSS @80/hr. Dispo: pending clinical improvement. Subjective Patient seen at bedside sleeping. easily arousable, states she has diffuse pain everywhere, the dilaudid is somewhat helping but she has been trying to ignore the pain by sleeping. Denies any SOB fever headache at this time. Review of Systems Review of Systems: see hpi Physical Exam Constitutional: WD/WN, vitals as above Eyes: PERRL, conjunctivae normal, anicteric sclerae ENMT: external ear and nose normal, oropharynx normal Neck: trachea midline, no thyromegaly Respiratory: normal respiratory effort, lungs clear to auscultation Cardiovascular: RRR, no murmur, no edema Gastrointestinal (Abdomen): Inspection/Auscultation: abdomen normal to inspection Percussion/Palpation: + abdomen tender (diffuse) and abdomen soft Skin: no rashes, warm and dry Results & Data Results & Data ([facility]) Vital Signs (Past 12 Hours) Vital Signs Temp Pulse Pulse Resp BP BP Pulse Ox 12/21/21 04:24 12/21/21 03:15 36.8 C 65 14 103/69 99 12/21/21 02:07 59 L 18 95/54 L 100 12/20/21 23:02 55 L 18 90/51 L 97 12/20/21 19:52 36.4 C L 77 20 104/59 L 100 O2 Del Method 12/21/21 04:24 Room Air 12/21/21 03:15 Room Air 12/21/21 02:07 Room Air 12/20/21 23:02 Room Air 12/20/21 19:52 Room Air Diagnostic Findings Laboratory Results WBC 7.45 K/ul (4.8-10.8) 12/20/21 21:08 RBC 2.14 M/uL (3.93-5.22) L 12/20/21 21:08 Hgb 8.6 g/dl (12.0-16.0) L 12/20/21 21:08 Hct 23.2 % (34.1-44.9) L 12/20/21 21:08 MCV 108.4 fL (80.0-100.0) H 12/20/21 21:08 MCH 40.2 pg (25.0-34.0) H 12/20/21 21:08 MCHC 37.1 g/dL (32.0-36.0) H 12/20/21 21:08 RDW Std Deviation 69.6 fL (36.4-46.3) H 12/20/21 21:08 RDW Coeff of Nando 17.5 % (11.5-14.5) H 12/20/21 21:08 Plt Count 221 K/uL (130-400) 12/20/21 21:08 MPV 9.5 fL (9.4-12.3) 12/20/21 21:08 Immature Gran % (Auto) 0.3 % 12/20/21 21:08 Neut % (Auto) 60.7 % 12/20/21 21:08 Lymph % (Auto) 30.2 % 12/20/21 21:08 [place] % (Auto) 6.7 % 12/20/21 21:08 Eos % (Auto) 1.7 % 12/20/21 21:08 Baso % (Auto) 0.4 % 12/20/21 21:08 Reticulocyte % (Auto) 6.2 % (0.5-2.0) H 12/20/21 21:08 Neut # (Auto) 4.52 K/uL (1.4-6.5) 12/20/21 21:08 Lymph # (Auto) 2.25 K/uL (1.2-3.4) 12/20/21 21:08 [place] # (Auto) 0.50 K/uL (0.24-0.82) 12/20/21 21:08 Eos # (Auto) 0.13 K/uL (0-0.50) 12/20/21 21:08 Baso # (Auto) 0.03 K/uL (0-0.2) 12/20/21 21:08 Reticulocyte # 0.13 10^6/uL (0.02-0.10) H 12/20/21 21:08 Immature Gran # (Auto) 0.02 K/uL (0.00-0.02) 12/20/21 21:08 Absolute Nucleated RBC 0.04 K/uL (0-0) H 12/20/21 21:08 Nucleated RBC % (auto) 0.5 % 12/20/21 21:08 Neutrophils % (Manual) Cancelled 12/20/21 20:15 Band Neutrophils % Cancelled 12/20/21 20:15 Lymphocytes % (Manual) Cancelled 12/20/21 20:15 Prolymphocyte % Cancelled 12/20/21 20:15 Reactive Lymphs % (Man) Cancelled 12/20/21 20:15 Monocytes % (Manual) Cancelled 12/20/21 20:15 Eosinophils % (Manual) Cancelled 12/20/21 20:15 Basophils % (Manual) Cancelled 12/20/21 20:15 Metamyelocytes % (Man) Cancelled 12/20/21 20:15 Myelocytes % (Man) Cancelled 12/20/21 20:15 Promyelocytes % (Man) Cancelled 12/20/21 20:15 Blast Cells % (Manual) Cancelled 12/20/21 20:15 Plasma Cell % (Manual) Cancelled 12/20/21 20:15 Other Cells % Cancelled 12/20/21 20:15 Nucleated RBC % Cancelled 12/20/21 20:15 Neutrophils # (Manual) Cancelled 12/20/21 20:15 Band Neutrophils # Cancelled 12/20/21 20:15 Total Absolute Neuts Cancelled 12/20/21 20:15 Lymphocytes # (Manual) Cancelled 12/20/21 20:15 Prolymphocyte # Cancelled 12/20/21 20:15 Reactive Lymphs # Cancelled 12/20/21 20:15 Total Abs Lymphocytes Cancelled 12/20/21 20:15 Monocytes # (Manual) Cancelled 12/20/21 20:15 Eosinophils # (Manual) Cancelled 12/20/21 20:15 Basophils # (Manual) Cancelled 12/20/21 20:15 Metamyelocytes # (Man) Cancelled 12/20/21 20:15 Myelocytes # (Manual) Cancelled 12/20/21 20:15 Promyelocytes # (Man) Cancelled 12/20/21 20:15 Blast Cells # (Man) Cancelled 12/20/21 20:15 Plasma Cell # (Manual) Cancelled 12/20/21 20:15 Other Cells # Cancelled 12/20/21 20:15 Nucleated RBCs # (Man) Cancelled 12/20/21 20:15 Hypersegmented Neuts Cancelled 12/20/21 20:15 Hyposegmented Neuts Cancelled 12/20/21 20:15 Hypogranular Neuts Cancelled 12/20/21 20:15 Large Granular Lymphs Cancelled 12/20/21 20:15 # Lrg Granular Lymphs Cancelled 12/20/21 20:15 Hairy Cells Cancelled 12/20/21 20:15 Smudge Cells Cancelled 12/20/21 20:15 Toxic Granulation Cancelled 12/20/21 20:15 Toxic Vacuolation Cancelled 12/20/21 20:15 Dohle Bodies Cancelled 12/20/21 20:15 Coral Rods Cancelled 12/20/21 20:15 Platelet Estimate Cancelled 12/20/21 20:15 Hypogranular Platelets Cancelled 12/20/21 20:15 Clumped Platelets Cancelled 12/20/21 20:15 Giant Platelets Cancelled 12/20/21 20:15 Platelet Satelliting Cancelled 12/20/21 20:15 RBC Morphology Cancelled 12/20/21 20:15 Polychromasia Cancelled 12/20/21 20:15 Hypochromasia Cancelled 12/20/21 20:15 Poikilocytosis Cancelled 12/20/21 20:15 Basophilic Stippling Cancelled 12/20/21 20:15 Anisocytosis Cancelled 12/20/21 20:15 Microcytosis Cancelled 12/20/21 20:15 Macrocytosis Cancelled 12/20/21 20:15 Spherocytes Cancelled 12/20/21 20:15 Pappenheimer Bodies Cancelled 12/20/21 20:15 Sickle Cells Cancelled 12/20/21 20:15 Target Cells Cancelled 12/20/21 20:15 Tear Drop Cells Cancelled 12/20/21 20:15 Ovalocytes Cancelled 12/20/21 20:15 Stomatocytes Cancelled 12/20/21 20:15 Booth-Auberry Bodies Cancelled 12/20/21 20:15 Echinocytes Cancelled 12/20/21 20:15 Acanthocytes (Spur) Cancelled 12/20/21 20:15 Rouleaux Cancelled 12/20/21 20:15 RBC Agglutinates Cancelled 12/20/21 20:15 Schistocytes Cancelled 12/20/21 20:15 Sezary Cell Cancelled 12/20/21 20:15 Sodium 138 mmol/L (136-145) 12/21/21 03:40 Potassium 3.8 mmol/L (3.5-5.1) 12/21/21 03:40 Chloride 109 mmol/L (98-107) H 12/21/21 03:40 Carbon Dioxide 25 mmol/L (21-32) 12/21/21 03:40 Anion Gap 4 (3-11) 12/21/21 03:40 BUN 4 mg/dl (6-23) L 12/21/21 03:40 Creatinine 0.44 mg/dl (0.6-1.2) L 12/21/21 03:40 Est Cr Clr Drug Dosing 186.2 ml/min 12/21/21 03:40 Est GFR ( Amer) > 150.0 ml/min 12/21/21 03:40 Est GFR (Non-Af Amer) 142.3 ml/min 12/21/21 03:40 BUN/Creatinine Ratio 9.1 (10-20) L 12/21/21 03:40 Glucose 91 mg/dl (70-99(Fasting)) 12/21/21 03:40 Calcium 8.7 mg/dl (8.5-10.1) 12/21/21 03:40 Magnesium 1.8 mg/dl (1.7-2.4) 12/20/21 20:15 Total Bilirubin 1.7 mg/dl (0.2-1.0) H 12/21/21 03:40 AST 13 U/L (13-39) 12/21/21 03:40 ALT 6 U/L (7-52) L 12/21/21 03:40 Alkaline Phosphatase 42 U/L (34-104) 12/21/21 03:40 Lactate Dehydrogenase 214 U/L (86-244) 12/20/21 23:27 Troponin I High Sens 4.1 pg/ml (0-14) D 12/20/21 23:27 Total Protein 6.5 gm/dl (6.0-8.3) 12/21/21 03:40 Albumin 3.7 gm/dl (3.4-5.0) 12/21/21 03:40 Globulin 2.8 gm/dl (2.5-4.0) 12/21/21 03:40 Albumin/Globulin Ratio 1.3 (0.9-2) 12/21/21 03:40 TSH 2.076 uIu/ml (0.300-4.500) 12/20/21 20:15 HCG, Qual Negative (Negative) 12/20/21 21:09 Urine Color [place] 12/20/21 20:20 Urine Appearance Clear (Clear) 12/20/21 20:20 Urine pH 7.0 (4.5-7.5) 12/20/21 20:20 Ur Specific [place] 1.005 (1.000-1.030) 12/20/21 20:20 Urine Protein Negative (Negative) 12/20/21 20:20 Urine Glucose (UA) Negative (Negative) 12/20/21 20:20 Urine Ketones Negative (Negative) 12/20/21 20:20 Urine Blood Negative (Negative) 12/20/21 20:20 Urine Nitrite Negative (Negative) 12/20/21 20:20 Urine Bilirubin Negative (Negative) 12/20/21 20:20 Urine Urobilinogen Negative (Negative) 12/20/21 20:20 Ur Leukocyte Esterase Negative (Negative) 12/20/21 20:20 POC Ur Test NEG (NEG) 12/20/21 22:11 SARS-CoV-2 (PCR) NEGATIVE (Negative) 12/20/21 22:05 Influenza Type A (PCR) Negative (Neg) 12/20/21 22:05 Influenza Type B (PCR) Negative (Neg) 12/20/21 22:05 RSV (RT-PCR) Negative (Neg) 12/20/21 22:05 Blood Parasites ID Cancelled 12/20/21 20:15 Blood Type B Positive 12/21/21 03:40 Antibody Screen NEGATIVE 12/21/21 03:[address] 12/20/21 21:[address] DOSE: HISTORY: dizzy, sickle cell TECHNIQUE: Multiaxial CT images of the head were performed without the use of in travenous contrast. Automated exposure control was utilized for this study. A dose lowering technique was utilized adhering to the principles of ALARA. Comparison: Head CT 06/15/2021. Findings: The paranasal sinuses and mastoid air cells are clear. The calvarium and skull base are intact. The ventricles and sulci are within normal limits. There is no mass, hematoma, midline shift, or acute infarct. Impression: No acute intracranial abnormality. ACT 112: Negative or not required by law. Electronically signed by: Cortes Fletcher M.D. 12/21/2021 7:05 AM Abdomen/Pelvis CT 12/20/21 22:[address] WITH IV CONTRAST CT DOSE: 1558.36 mGy.cm HISTORY: Generalized abdominal pain. severe abd pain, sickle cell crisis TECHNIQUE: Multiaxial CT images of the abdomen and pelvis were performed following the use of intravenous contrast. A dose lowering technique was utilized adhering to the principles of ALARA. COMPARISON STUDY: Abdomen and pelvis CT 10/31/2020. FINDINGS: Endplate deformities seen throughout the spine consistent the patient's history of sickle cell disease. 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 This is likely chronic. Additional patchy areas of sclerosis within the pelvis and sacrum consistent with areas of avascular necrosis. This remains unchanged. Mild dependent changes seen within the left lung base. The heart is mildly enlarged. The liver, gallbladder, pancreas, adrenal glands, and kidneys are unremarkable. Normal caliber abdominal aorta. No retroperitoneal lymphadenopathy. Mild bladder wall thickening. The uterus and ovaries are unremarkable. Endometrium measures 1.3 cm in thickness. This is considered top normal for age. Trace pelvic free fluid. Moderate well-formed stool seen throughout the colon. No bowel wall thickening or obstruction. Normal appendix. The major mesenteric vessels appear patent. IMPRESSION: 1. Bladder wall thickening. This may represent a cystitis. Recommend correlation with urinalysis. 2. Avascular necrosis of the bilateral femoral heads with a progressive subchondral fracture left femoral head. This is likely chronic. 3. Trace pelvic free fluid. This is likely physiologic. 4. No bowel wall thickening or obstruction. 5. Normal appendix. 6. Additional findings as described above. ACT 112: Negative or not required by law. Electronically signed by: Cortes Fletcher M.D. 12/21/2021 7:31 AM Head CTA 12/20/21 22:03 CT angio head w con CLINICAL HISTORY: 21 years-old Female with dizzy, pain, sickle cell crisis. Acute dizziness with headache COMPARISON STUDY: Head CT of same day TECHNIQUE: Following the IV administration of 111 cc of Optiray, CT angiogram of the brain was performed from the skull base to the vertex. Images are reviewed in the axial, sagittal, and coronal planes. 3-D MIPS images are created and assessed. IV contrast was administered without complication. All measurements were obtained according to NASCET criteria. A dose lowering technique was utilized adhering to the principles of ALARA. FINDINGS: CT ANGIOGRAM OF THE BRAIN: The imaged bilateral internal carotid arteries are patent. The bilateral anterior and middle cerebral arteries are also patent. The vertebrobasilar system and posterior cerebral arteries are widely patent. There is no aneurysm, high-grade stenosis, or proximal branch occlusion identified. Dural sinuses appear patent. IMPRESSION: Unremarkable CTA of the head. ACT 112: Negative or not required by law. The above report was generated using voice recognition software. It may contain grammatical, syntax or spelling errors. Electronically signed by: Tre Jennings M.D. 12/21/2021 6:47 AM Neck CTA 12/20/21 22:03 NECK CTA HISTORY: dizzy, pain, sickle cell crisis TECHNIQUE: Multiaxial CT images of the neck were performed following the intravenous administration of contrast to evaluate the major cervical vessels. Maximum intensity projection images were also obtained. All measurements were calculated based on NASCET criteria. A dose lowering technique was utilized adhering to the principles of ALARA. COMPARISON STUDY: None. FINDINGS: The aortic arch and proximal great vessels are widely patent. There is no significant stenosis, occlusion, or dissection identified within the bilateral common carotid, internal carotid, or vertebral arteries. H shaped T3 and T4 vertebral bodies consistent with the patient's history of sickle cell disease. IMPRESSION: No significant stenosis, occlusion, or dissection identified within the carotid or vertebral arteries. ACT 112: Negative or not required by law. Electronically signed by: Cortes Fletcher M.D. 12/21/2021 7:10 AM Chest X-Ray 12/20/21 23:27 XR chest 1V portable HISTORY: 21 years-old Female weak acute weakness COMPARISON: Chest radiograph 10/13/2021 TECHNIQUE: AP view of the chest FINDINGS: Cardiomediastinal and hilar silhouettes are within normal limits. No pneumothorax, pleural effusion, airspace consolidation or overt pulmonary edema. H-shaped vertebral bodies compatible with the patient's clinical diagnosis of sickle cell disease. IMPRESSION: No acute process. ACT 112: Negative or not required by law. The above report was generated using voice recognition software. It may contain grammatical, syntax or spelling errors. Electronically signed by: Tre Jennings M.D. 12/21/2021 8:18 AM Medications Administered Current Inpatient Medications Acetaminophen (Acetaminophen 500 Mg Tab) 1,000 mg PO Q8H WALTER Stop: 01/20/22 00:44 Last Admin: 12/21/21 09:18 Dose: 1,000 mg Fentanyl (Fentanyl 12 Mcg/Hr Tdsy) 12 mcg TD Q72H WALTER Stop: 01/05/22 06:59 Folic Acid (Folic Acid 1 Mg Tab) 2 mg PO HS WALTER Stop: 01/20/22 20:59 Hydromorphone HCl (Hydromorphone Inj 1 Mg/Ml Syringe) 1 mg IV Q1H PRN PRN Reason: Pain Stop: 01/03/22 21:44 Last Admin: 12/21/21 12:09 Dose: 1 mg Hydroxyurea (Hydroxyurea 500 Mg Cap) 1,000 mg PO BID WALTER Stop: 01/20/22 03:28 Last Admin: 12/21/21 09:18 Dose: 1,000 mg Sodium Chloride (1/2 Nss) 1,000 mls @ 80 mls/hr IV .[id number] WALTER Stop: 12/21/21 15:58 Last Admin: 12/21/21 03:52 Dose: 80 mls/hr Pantoprazole Sodium 40 mg/ (Syringe) 10 mls @ 5 mls/min IV BID WALTER Stop: 01/20/22 08:59 Last Admin: 12/21/21 09:18 Dose: 5 mls/min Meclizine HCl (Meclizine Hcl 25 Mg Tab) 25 mg PO TID PRN PRN Reason: Dizziness Stop: 01/20/22 03:28 Last Admin: 12/21/21 09:18 Dose: 25 mg Melatonin (Melatonin 3 Mg Tab) 3 mg PO HS PRN PRN Reason: Sleep Stop: 01/20/22 03:28 Miscellaneous (Fentanyl Patch Remove & Waste) 1 each N/A Q72H WALTER Stop: 01/21/22 06:58 Miscellaneous (Check Fentanyl Patch Placement) 1 each N/A QS WALTER Stop: 01/20/22 07:59 Last Admin: 12/21/21 09:16 Dose: 1 each Naloxone HCl (Naloxone Hcl 0.4 Mg/1 Ml Vial/Carp) 0.1 mg IV Q5M PRN; Protocol PRN Reason: Oversedation/Resp Depression Stop: 01/04/22 03:57 Ondansetron HCl (Ondansetron 4 Mg Od Tab) 4 mg PO TID WALTER Stop: 01/20/22 08:59 Last Admin: 12/21/21 09:18 Dose: 4 mg Polyethylene Glycol (Polyethylene (Miralax) 17 Gm Pack) 17 gm PO DAILY WALTER Stop: 01/20/22 08:59 Last Admin: 12/21/21 09:19 Dose: 17 gm Resident Activity Tracking Resident Involvement: Resident Care Provided Care Provided: Adult Hospital Medicine
--- NOTE | 2021-12-21 07:11 | CT Scan Report ---
NECK CTA HISTORY: dizzy, pain, sickle cell crisis TECHNIQUE: Multiaxial CT images of the neck were performed following the intravenous administration o f contrast to evaluate the major cervical vessels. Maximum intensity projection images were also obta ined. All measurements were calculated based on NASCET criteria. A dose lowering technique was utili zed adhering to the principles of ALARA. COMPARISON STUDY: None. FINDINGS: The aortic arch and proximal great vessels are widely patent. There is no significant sten osis, occlusion, or dissection identified within the bilateral common carotid, internal carotid, or v ertebral arteries. H shaped T3 and T4 vertebral bodies consistent with the patient's history of sickl e cell disease. IMPRESSION: No significant stenosis, occlusion, or dissection identified within the carotid or vertebral arteries . ACT 112: Negative or not required by law. Electronically signed by: Cortes Fletcher M.D. 12/21/2021 7:10 AM
--- NOTE | 2021-12-21 07:32 | CT Scan Report ---
ABDOMEN AND PELVIS CT WITH IV CONTRAST CT DOSE: 1558.36 mGy.cm HISTORY: Generalized abdominal pain. severe abd pain, sickle cell crisis TECHNIQUE: Multiaxial CT images of the abdomen and pelvis were performed following the use of intrave nous contrast. A dose lowering technique was utilized adhering to the principles of ALARA. COMPARISON STUDY: Abdomen and pelvis CT 10/31/2020. FINDINGS: Endplate deformities seen throughout the spine consistent the patient's history of sickle c ell disease. 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 Avascular necrosis of bi lateral femoral heads with a persistent subchondral fracture of the left femoral head demonstrating p rogressive subchondral lucency. This is likely chronic. Additional patchy areas of sclerosis within t he pelvis and sacrum consistent with areas of avascular necrosis. This remains unchanged. Mild depend ent changes seen within the left lung base. The heart is mildly enlarged. The liver, gallbladder, [place], adrenal glands, and kidneys are unremarkable. Normal caliber abdominal aorta. No retroperitone al lymphadenopathy. Mild bladder wall thickening. The uterus and ovaries are unremarkable. Endometriu m measures 1.3 cm in thickness. This is considered top normal for age. Trace pelvic free fluid. Moder ate well-formed stool seen throughout the colon. No bowel wall thickening or obstruction. Normal appe ndix. The major mesenteric vessels appear patent. IMPRESSION: 1. Bladder wall thickening. This may represent a cystitis. Recommend correlation with urinalysis. 2. Avascular necrosis of the bilateral femoral heads with a progressive subchondral fracture left fem oral head. This is likely chronic. 3. Trace pelvic free fluid. This is likely physiologic. 4. No bowel wall thickening or obstruction. 5. Normal appendix. 6. Additional findings as described above. ACT 112: Negative or not required by law. Electronically signed by: Cortes Fletcher M.D. 12/21/2021 7:31 AM
--- NOTE | 2021-12-21 08:19 | XRay Report ---
XR chest 1V portable HISTORY: 21 years-old Female weak acute weakness COMPARISON: Chest radiograph 10/13/2021 TECHNIQUE: AP view of the chest FINDINGS: Cardiomediastinal and hilar silhouettes are within normal limits. No pneumothorax, pleural effusion, airspace consolidation or overt pulmonary edema. H-shaped vertebral bodies compatible with the patien t's clinical diagnosis of sickle cell disease. IMPRESSION: No acute process. ACT 112: Negative or not required by law. The above report was generated using voice recognition software. It may contain grammatical, syntax o r spelling errors. Electronically signed by: Tre Jennings M.D. 12/21/2021 8:18 AM
[2021-12-21] MEDS: CHECK fentaNYL PATCH PLACEMENT SCH ×3 (09:16→23:51)
[2021-12-21] MEDS: PANTOprazole 40 MG in SYRINGE 0 ML IV SCH ×2 (09:18→20:32)
[2021-12-21] MEDS: ONDANSETRON 4 MG OD TAB PO SCH ×3 (09:18→20:32)
[2021-12-21] MEDS: MECLIZINE HCL 25 MG TAB PO PRN ×2 (09:18→16:57)
[2021-12-21] MEDS: POLYETHYLENE (MIRALAX) 17 GM PACK PO SCH (09:19)
--- NOTE | 2021-12-21 10:46 | Electrocardiogram Report ---
Test Reason : Blood Pressure : / mmHG Vent. Rate : 069 BPM Atrial Rate : 069 BPM P-R Int : 206 ms QRS Dur : 074 ms QT Int : 394 ms P-R-T Axes : 051 072 046 degrees QTc Int : 422 ms Normal sinus rhythm Normal ECG When compared with ECG of 13-AUG-2021 18:26, No significant change was found Confirmed by Slick Simmons ([id number]) on 12/21/2021 10:45:32 AM Referred By: REFERRED SELF Confirmed By:Torey Simmons
[2021-12-21] MEDS: oxyCODONE HCL IR 5 MG TAB (IMMEDIATE RELEASE) PO PRN ×2 (14:30→23:37)
[2021-12-21] MEDS: FOLIC ACID 1 MG TAB PO SCH (20:32)
[2021-12-21] MEDS: SODIUM CHLORIDE 0.45 % 500 ML IV SCH (21:43)
[2021-12-22] MEDS: ACETAMINOPHEN 500 MG TAB PO SCH ×3 (01:02→15:52)
[2021-12-22] MEDS: HYDROmorphone INJ 1 MG/ML SYRINGE IV PRN ×7 (01:03→23:04)
[2021-12-22] MEDS: SODIUM CHLORIDE 0.45 % 500 ML IV SCH (03:46)
[2021-12-22] MEDS: oxyCODONE HCL IR 5 MG TAB (IMMEDIATE RELEASE) PO PRN ×4 (03:47→18:05)
[2021-12-22] MEDS: fentaNYL 12 MCG/HR TDSY TD SCH (06:30)
[2021-12-22 07:35] LABS: Hematocrit (blood only) 22.4 % (34.1-44.9); Hemoglobin 8.4 g/dl (12.0-16.0); Mean Corpuscular Hemoglobin 39.4 pg (25.0-34.0); Mean Corpuscular Hgb Conc 37.5 g/dL (32.0-36.0); Mean Corpuscular Volume 105.2 fL (80.0-100.0); Mean Platelet Volume 10.1 fL (9.4-12.3); Nucleated RBC # (auto) 0.02 K/uL (0-0); Nucleated RBC % (auto) 0.4 %; Platelet Count 206 K/uL (130-400); RDW Coefficient of Variation 17.3 % (11.5-14.5); RDW Standard Deviation 66.3 fL (36.4-46.3); Red Blood Count 2.13 M/uL (3.93-5.22); White Blood Count 5.24 K/ul (4.8-10.8)
[2021-12-22] MEDS: CHECK fentaNYL PATCH PLACEMENT SCH ×2 (07:48→15:49)
[2021-12-22 08:29] LABS: Alanine Aminotransferase 7 U/L (7-52); Albumin Globulin Ratio 1.3 (0.9-2); Albumin Level 3.8 gm/dl (3.4-5.0); Alkaline Phosphatase 43 U/L (34-104); Anion Gap 4 (3-11); Aspartate Aminotransferase 15 U/L (13-39); Bilirubin,Total 1.5 mg/dl (0.2-1.0); Blood Urea Nitrogen 8 mg/dl (6-23); Calcium 8.9 mg/dl (8.5-10.1); Carbon Dioxide 27 mmol/L (21-32); Chloride 105 mmol/L (98-107); Creatinine Clr Calc Pharmacy 143.7 ml/min; Est GFR (African American) > 150.0 ml/min; Est GFR (Non-African American) 130.7 ml/min; Globulin 2.9 gm/dl (2.5-4.0); Glucose 85 mg/dl (70-99(Fasting)); Potassium 3.7 mmol/L (3.5-5.1); Sodium 136 mmol/L (136-145); Total Protein 6.7 gm/dl (6.0-8.3)
[2021-12-22] MEDS: ONDANSETRON 4 MG OD TAB PO SCH (08:41)
[2021-12-22] MEDS: PANTOprazole 40 MG in SYRINGE 0 ML IV SCH ×2 (08:41→21:29)
[2021-12-22] MEDS: HYDROXYUREA 500 MG CAP PO SCH ×2 (08:41→21:29)
[2021-12-22] MEDS: POLYETHYLENE (MIRALAX) 17 GM PACK PO SCH (08:45)
[2021-12-22] MEDS ORDERED: MECLIZINE HCL 25 MG TAB PO PRN (09:23)
--- NOTE | 2021-12-22 09:33 | Hospitalist Progress Note ---
Date of Service December 22, 2021 Assessment & Plan (1) Generalized pain: Plan: Donta Trevizo) is a 20yo female with sickle cell disease and chronic pain who presented to the ER with a three-day history of worsening generalized pain, nausea, and intermittent dizziness, which she describes as similar to prior acute sickle episodes. Sickle cell acute pain crisis CXR without acute abnormality, oxygen saturation adequate - no evidence of acute chest syndrome Admission labs notable for anemia (8.6), hyperbilirubinemia (2.0); hsTroponin not elevated Patient occasionally requires transfusions during acute pain episodes; type/screen ordered Etiology likely multifactorial: sickle cell disease acute pain crisis +/- opioid hyperalgesia Initial pain control plan: APAP 1000mg PO q8h scheduled Oxycodone 5 mg q4h PRN, Dilaudid 1mg IV q1h PRN breakthrough pain Continue home fentanyl patch (last applied 12/22) -Will attempt to space pain PRNs pending improvement over next day Holding off on NSAIDs given risk of renal injury in setting of hypotension and sickle cell crisis Continue IVF for intravascular volume expansion Continue home hydroxyurea, folate - Hgb stable 8.6 to 8.4 today Zofran PRN Incentive spirometry Trend daily CBC Hypotension Patient with intermittent hypotension which is not uncommon for her during sickle cell acute pain episodes, in part due to poor PO intake Continue 1/2 NSS @ 80mL/hr Encourage PO intake, continue to monitor, additional IVF boluses as needed - Meclizine 50 mg PRN TID for dizziness Hyperbilirubinemia Total bilirubin on admission 2.0, LFTs otherwise wnl; patient has a long history of hyperbilirubinemia during acute pain episodes Abdomen nontender on exam Suspect elevated bilirubin is secondary to increased RBC turnover d/t sickle crisis Trend daily CMP GERD: continue pantoprazole 40mg IV bid Constipation: continue home miralax FEN: regular diet, 1/2 NSS at 80 cc/hr Code status: full code VTE ppx: SCDs PT/OT: ordered Dispo: medical/surgical (2) Elevated bilirubin: (3) Elevated troponin: (4) Nausea: (5) Sickle cell crisis: Admission and Anticipated Discharge Date Admission Date: December 21, 2021 Supervising Physician Co-Signing Physician Notes Patient seen and examined independently of PGY-2 Dr. Medley. Agree with history, exam findings, assessment and plan as outlined. In brief, James is a 20 year old female with sickle cell disease and associated chronic pain admitted with 3 days of worsening generalized pain, nausea and dizziness. She still has pain--pain in her bones and chest. No dypsnea. Does also feel a bit nauseated today as well. Did eat breakfast. No vomiting. VS and nursing notes reviewed Heart with regular rate and rhythm. Lungs are clear to auscultation throughout. Lab and imaging reviewed. 1. Sickle cell crisis pain. IVFs, APAP 1000mg q8h, dilaudid 1mg q1h PRN pain, home fentanyl patch, Zofran. Incentive spirometry. Continue home hydroxyurea and folate. 2. Hypotension. IVFs NSS @80/hr. Dispo: pending clinical improvement. Subjective No acute events overnight. Pt received oxycodone 5 mg at approximately 11:30 PM, 4 AM and 10 AM. Received Dilaudid 1 mg at approximately 8:30 PM, 1 AM, 5:30 AM. On evaluation, pt was eating breakfast but reported low appetite. States her pain is 6/10, shortly after receiving medication. Continues to feel dizzy though reports relief from meclizine. She denies any other complaints. Review of Systems Review of Systems: Per subjective Physical Exam Constitutional: WD/WN, vitals as above ENMT: external ear and nose normal, oropharynx normal Neck: trachea midline, no thyromegaly Respiratory: normal respiratory effort, lungs clear to auscultation Cardiovascular: RRR, no murmur, no edema Gastrointestinal (Abdomen): Inspection/Auscultation: abdomen normal to inspection Percussion/Palpation: abdomen soft; abdomen nontender Skin: no rashes, warm and dry Results & Data Results & Data ([facility]) Vital Signs (Past 12 Hours) Vital Signs Pulse Resp BP Pulse Ox O2 Del Method 12/22/21 07:11 60 18 95/60 L 100 Room Air 12/21/21 23:33 68 14 97/63 L 100 Room Air Resident Activity Tracking Resident Involvement: Resident Care Provided Care Provided: Adult Hospital Medicine
[2021-12-22] MEDS: SODIUM CHLORIDE 0.45 % 1,000 ML IV SCH ×2 (10:11→18:01)
[2021-12-22] MEDS: ONDANSETRON 4 MG OD TAB PO PRN (14:18)
[2021-12-22] MEDS: FOLIC ACID 1 MG TAB PO SCH (21:29)
[2021-12-23] MEDS: CHECK fentaNYL PATCH PLACEMENT SCH ×4 (01:04→23:58)
[2021-12-23] MEDS: ACETAMINOPHEN 500 MG TAB PO SCH ×3 (01:52→16:15)
[2021-12-23] MEDS: HYDROmorphone INJ 1 MG/ML SYRINGE IV PRN ×6 (03:57→20:10)
[2021-12-23] MEDS: SODIUM CHLORIDE 0.45 % 1,000 ML IV SCH ×2 (04:53→16:57)
[2021-12-23 06:52] LABS: Hematocrit (blood only) 22.9 % (34.1-44.9); Hemoglobin 8.6 g/dl (12.0-16.0); Mean Corpuscular Hemoglobin 39.4 pg (25.0-34.0); Mean Corpuscular Hgb Conc 37.6 g/dL (32.0-36.0); Mean Platelet Volume 9.9 fL (9.4-12.3); Nucleated RBC # (auto) 0.03 K/uL (0-0); Nucleated RBC % (auto) 0.5 %; Platelet Count 225 K/uL (130-400); RDW Coefficient of Variation 16.9 % (11.5-14.5); RDW Standard Deviation 65.1 fL (36.4-46.3); Red Blood Count 2.18 M/uL (3.93-5.22); White Blood Count 5.95 K/ul (4.8-10.8)
[2021-12-23 07:43] LABS: Alanine Aminotransferase 9 U/L (7-52); Albumin Globulin Ratio 1.3 (0.9-2); Alkaline Phosphatase 44 U/L (34-104); Anion Gap 4 (3-11); Aspartate Aminotransferase 18 U/L (13-39); Bilirubin,Total 1.7 mg/dl (0.2-1.0); Blood Urea Nitrogen 8 mg/dl (6-23); Calcium 9.2 mg/dl (8.5-10.1); Carbon Dioxide 29 mmol/L (21-32); Chloride 103 mmol/L (98-107); Creatinine Clr Calc Pharmacy 174.3 ml/min; Est GFR (African American) > 150.0 ml/min; Est GFR (Non-African American) 139.2 ml/min; Globulin 3.1 gm/dl (2.5-4.0); Glucose 81 mg/dl (70-99(Fasting)); Potassium 3.8 mmol/L (3.5-5.1); Sodium 136 mmol/L (136-145); Total Protein 7.1 gm/dl (6.0-8.3)
[2021-12-23] MEDS: HYDROXYUREA 500 MG CAP PO SCH ×2 (09:11→20:10)
[2021-12-23] MEDS: PANTOprazole 40 MG in SYRINGE 0 ML IV SCH ×2 (09:11→20:10)
[2021-12-23] MEDS: POLYETHYLENE (MIRALAX) 17 GM PACK PO SCH (09:12)
--- NOTE | 2021-12-23 09:13 | Hospitalist Progress Note ---
Date of Service December 23, 2021 Assessment & Plan (1) Generalized pain: Plan: Donta Trevizo) is a 20yo female with sickle cell disease and chronic pain who presented to the ER with a three-day history of worsening generalized pain, nausea, and intermittent dizziness, which she describes as similar to prior acute sickle episodes. Sickle cell acute pain crisis CXR without acute abnormality, oxygen saturation adequate - no evidence of acute chest syndrome Admission labs notable for anemia (8.6), hyperbilirubinemia (2.0); hsTroponin not elevated Patient occasionally requires transfusions during acute pain episodes; type/screen ordered Etiology likely multifactorial: sickle cell disease acute pain crisis +/- opioid hyperalgesia Pain control regimen: APAP 1000mg PO q8h scheduled Oxycodone 5 mg q4h PRN, Dilaudid 1mg IV q1h PRN breakthrough pain Continue home fentanyl patch (last applied 12/22) -Does appear to be gradually improving Holding off on NSAIDs given risk of renal injury in setting of hypotension and sickle cell crisis Continue IVF for intravascular volume expansion- LR 80 ccs/hr Continue home hydroxyurea, folate - Hgb stable 8.4 to 8.6 today Zofran PRN Incentive spirometry Trend daily CBC Hypotension Patient with intermittent hypotension which is not uncommon for her during sickle cell acute pain episodes, in part due to poor PO intake Continue 1/2 NSS @ 80mL/hr Encourage PO intake, continue to monitor, additional IVF boluses as needed - Meclizine 50 mg PRN TID for dizziness - BP stable in 90s-100s/50s-60s Hyperbilirubinemia Total bilirubin on admission 2.0, LFTs otherwise wnl; patient has a long history of hyperbilirubinemia during acute pain episodes - Total bilirubin improving to 1.7 today Abdominal exam benign Suspect elevated bilirubin is secondary to increased RBC turnover d/t sickle crisis Trend daily CMP GERD: continue pantoprazole 40mg IV bid Constipation: continue home miralax FEN: regular diet, 1/2 NSS at 80 cc/hr Code status: full code VTE ppx: SCDs PT/OT: ordered Dispo: medical/surgical (2) Elevated bilirubin: (3) Elevated troponin: (4) Nausea: (5) Sickle cell crisis: Admission and Anticipated Discharge Date Admission Date: December 21, 2021 Supervising Physician Co-Signing Physician Notes Patient seen and examined independently of PGY-2 Dr. Hernandez. Agree with history, exam findings, assessment and plan as outlined. In brief, James is a 20 year old female with sickle cell disease and associated chronic pain admitted with 3 days of worsening generalized pain, nausea and dizziness. She still has pain--pain in her leg (left > right) and chest. No dypsnea. Does also feel a bit nauseated today as well. Did eat breakfast. No vomiting. Not ready for oral pain medications just yet. Has noticed that she gets itchy with the dilaudid. Has not been offered benadryl for this yet. VS and nursing notes reviewed Heart with regular rate and rhythm. Lungs are clear to auscultation throughout. Lab and imaging reviewed. 1. Sickle cell crisis pain. IVFs, APAP 1000mg q8h, dilaudid 1mg q1h PRN pain, home fentanyl patch, Zofran. Incentive spirometry. Continue home hydroxyurea and folate. Ok fof IV benadryl if she gets itchy from the IV dilaudid. She does have oral oxycodone ordered if she would like that. 2. Hypotension. IVFs NSS @80/hr. Dispo: pending clinical improvement. Subjective No acute events overnight. Pt received Dilaudid 1 mg approximately every 3 hours overnight. Did not receive any oxycodone after about 6 PM on 12/22. On evaluation, pt was eating breakfast, states her appetite and nausea have improved. Dizziness has improved as well. Pain is about 6/10 today, states it is generalized, not as limiting today. Denies focal chest pain, dyspnea, fever. She feels she is early in her typical hospital course and would like to focus on pain control today. Review of Systems Review of Systems: Per subjective Physical Exam Constitutional: WD/WN, vitals as above ENMT: external ear and nose normal, oropharynx normal Neck: trachea midline, no thyromegaly Respiratory: normal respiratory effort, lungs clear to auscultation Cardiovascular: RRR, no murmur, no edema Gastrointestinal (Abdomen): Inspection/Auscultation: abdomen normal to inspection Percussion/Palpation: abdomen soft; abdomen nontender Skin: no rashes, warm and dry Results & Data Results & Data ([facility]) Vital Signs (Past 12 Hours) Vital Signs Temp Pulse Resp BP Pulse Ox O2 Del Method 12/23/21 07:17 36.9 C 56 L 16 94/58 L 99 Room Air Resident Activity Tracking Resident Involvement: Resident Care Provided Care Provided: Adult Hospital Medicine
[2021-12-23] MEDS: diphenhydrAMINE 50 MG/ML VIAL IV PRN (10:40)
[2021-12-23] MEDS: oxyCODONE HCL IR 5 MG TAB (IMMEDIATE RELEASE) PO PRN ×3 (11:38→22:45)
[2021-12-23] MEDS: ONDANSETRON 4 MG OD TAB PO PRN (18:38)
[2021-12-23] MEDS: FOLIC ACID 1 MG TAB PO SCH (20:10)
[2021-12-24] MEDS: HYDROmorphone INJ 1 MG/ML SYRINGE IV PRN ×9 (00:10→22:24)
[2021-12-24] MEDS: ACETAMINOPHEN 500 MG TAB PO SCH ×3 (00:46→17:59)
[2021-12-24] MEDS: diphenhydrAMINE 50 MG/ML VIAL IV PRN ×3 (00:48→23:00)
[2021-12-24] MEDS: SODIUM CHLORIDE 0.45 % 1,000 ML IV SCH ×2 (05:58→18:43)
[2021-12-24] MEDS: CHECK fentaNYL PATCH PLACEMENT SCH ×3 (07:49→23:01)
[2021-12-24 08:45] LABS: Alanine Aminotransferase 10 U/L (7-52); Albumin Globulin Ratio 1.3 (0.9-2); Albumin Level 3.9 gm/dl (3.4-5.0); Alkaline Phosphatase 44 U/L (34-104); Anion Gap 6 (3-11); Aspartate Aminotransferase 23 U/L (13-39); BUN Creatinine Ratio 14.3 (10-20); Bilirubin,Total 1.6 mg/dl (0.2-1.0); Blood Urea Nitrogen 7 mg/dl (6-23); Calcium 8.9 mg/dl (8.5-10.1); Carbon Dioxide 26 mmol/L (21-32); Chloride 104 mmol/L (98-107); Creatinine Clr Calc Pharmacy 167.2 ml/min; Est GFR (African American) > 150.0 ml/min; Est GFR (Non-African American) 137.3 ml/min; Globulin 3.1 gm/dl (2.5-4.0); Glucose 85 mg/dl (70-99(Fasting)); Potassium 3.9 mmol/L (3.5-5.1); Sodium 136 mmol/L (136-145)
[2021-12-24 08:49] LABS: Hematocrit (blood only) 23.7 % (34.1-44.9); Mean Corpuscular Hemoglobin 39.1 pg (25.0-34.0); Mean Platelet Volume 10.8 fL (9.4-12.3); Nucleated RBC # (auto) 0.05 K/uL (0-0); Nucleated RBC % (auto) 0.7 %; Platelet Count 220 K/uL (130-400); RDW Coefficient of Variation 17.3 % (11.5-14.5); RDW Standard Deviation 65.6 fL (36.4-46.3); White Blood Count 6.74 K/ul (4.8-10.8)
[2021-12-24] MEDS: PANTOprazole 40 MG in SYRINGE 0 ML IV SCH ×2 (10:14→20:26)
[2021-12-24] MEDS: POLYETHYLENE (MIRALAX) 17 GM PACK PO SCH (10:15)
[2021-12-24] MEDS: HYDROXYUREA 500 MG CAP PO SCH ×2 (10:15→20:24)
--- NOTE | 2021-12-24 16:40 | Hospitalist Progress Note ---
Date of Service December 24, 2021 Assessment & Plan (1) Generalized pain: Plan: Donta Trevizo) is a 20yo female with sickle cell disease and chronic pain who presented to the ER with a three-day history of worsening generalized pain, nausea, and intermittent dizziness, which she describes as similar to prior acute sickle episodes. Sickle cell acute pain crisis CXR without acute abnormality, oxygen saturation adequate - no evidence of acute chest syndrome Admission labs notable for anemia (8.6), hyperbilirubinemia (2.0); hsTroponin not elevated Patient occasionally requires transfusions during acute pain episodes; type/screen ordered Etiology likely multifactorial: sickle cell disease acute pain crisis +/- opioid hyperalgesia Pain control regimen: APAP 1000mg PO q8h scheduled Oxycodone 5 mg changed to 3 times daily scheduled, continue Dilaudid 1 mg IV every 2 hours as needed Continue home fentanyl patch (last applied 12/22) -Does appear to be gradually improving Holding off on NSAIDs given risk of renal injury in setting of hypotension and sickle cell crisis Continue IVF for intravascular volume expansion- Half-normal saline at 80 mL/h Continue home hydroxyurea, folate - Hgb stable 9.0 today Zofran PRN Incentive spirometry Trend daily CBC Hypotension Patient with intermittent hypotension which is not uncommon for her during sickle cell acute pain episodes, in part due to poor PO intake Continue 1/2 NSS @ 80mL/hr Encourage PO intake, continue to monitor, additional IVF boluses as needed - Meclizine 50 mg PRN TID for dizziness - BP stable in 90s-100s/50s-60s Hyperbilirubinemia Total bilirubin on admission 2.0, LFTs otherwise wnl; patient has a long history of hyperbilirubinemia during acute pain episodes - Total bilirubin improving to 1.6 today Abdominal exam benign Suspect elevated bilirubin is secondary to increased RBC turnover d/t sickle crisis Trend daily CMP GERD: continue pantoprazole 40mg IV bid Constipation: continue home miralax, added dulcolax daily. Mag citrate out of stock FEN: regular diet, 1/2 NSS at 80 cc/hr Code status: full code VTE ppx: SCDs PT/OT: ordered Dispo: medical/surgical (2) Elevated bilirubin: (3) Elevated troponin: (4) Nausea: (5) Sickle cell crisis: Admission and Anticipated Discharge Date Admission Date: December 21, 2021 Supervising Physician Co-Signing Physician Notes I personally examined the patient and verified all amaro points of history and exam, discussed case, and agree with decision making with Dr Alas pain still poorly controlled. hesitant to go up on pain meds much vitals noted nad heent nc at mmm breathing unlabored no accessory muscles good effort skin no rashes no pallor or icterus 1. Sickle cell crisis pain. IVFs, APAP 1000mg q8h, dilaudid 1mg q1h PRN pain, home fentanyl patch, scheduled oxycodone. Zofran. Incentive spirometry. Continue home hydroxyurea and folate. Ok fof IV benadryl if she gets itchy from the IV dilaudid. 2. Hypotension. IVFs NSS @80/hr. improved Dispo: pending clinical improvement. anticipate home on dc Subjective Patient seen at bedside this morning. No acute events reported overnight. Pain is still about the same and is having to use Dilaudid about every 1-1/2 to 2 hours. Concerned about getting constipated given all of the opioids that she is on. Otherwise no changes. No other complaints at this time. Review of Systems Review of Systems: All systems reviewed & are unremarkable except as noted in HPI & below Physical Exam Constitutional: WD/WN, vitals as above Eyes: PERRL, conjunctivae normal, anicteric sclerae ENMT: external ear and nose normal, oropharynx normal Neck: trachea midline, no thyromegaly Respiratory: normal respiratory effort, lungs clear to auscultation Cardiovascular: RRR, no murmur, no edema Gastrointestinal (Abdomen): Inspection/Auscultation: abdomen normal to inspection Percussion/Palpation: abdomen soft; abdomen nontender Skin: no rashes, warm and dry Results & Data Results & Data ([facility]) Vital Signs (Past 12 Hours) Vital Signs Temp Pulse Resp BP Pulse Ox O2 Del Method 12/24/21 15:29 36.7 C 78 16 99/64 L 98 Room Air 12/24/21 07:28 37.1 C 66 16 95/56 L 98 Room Air
--- NOTE | 2021-12-24 19:21 | Billing Data ---
Date of Service December 24, 2021 Coding Level of Care Code 55797 Subseq Hosp Care Lvl 3
[2021-12-24] MEDS: oxyCODONE HCL IR 5 MG TAB (IMMEDIATE RELEASE) PO SCH (20:23)
[2021-12-24] MEDS: FOLIC ACID 1 MG TAB PO SCH (20:26)
[2021-12-25] MEDS: ACETAMINOPHEN 500 MG TAB PO SCH ×3 (01:11→17:44)
[2021-12-25] MEDS: HYDROmorphone INJ 1 MG/ML SYRINGE IV PRN ×6 (01:12→14:34)
[2021-12-25] MEDS: fentaNYL 12 MCG/HR TDSY TD SCH (06:27)
[2021-12-25] MEDS: SODIUM CHLORIDE 0.45 % 1,000 ML IV SCH ×2 (06:29→18:40)
--- NOTE | 2021-12-25 07:03 | Hospitalist Progress Note ---
Date of Service December 25, 2021 Assessment & Plan (1) Generalized pain: Plan: Donta Trevizo) is a 20yo female with sickle cell disease and chronic pain who presented to the ER with a three-day history of worsening generalized pain, nausea, and intermittent dizziness, which she describes as similar to prior acute sickle episodes. Sickle cell acute pain crisis CXR without acute abnormality, oxygen saturation adequate - no evidence of acute chest syndrome Admission labs notable for anemia (8.6), hyperbilirubinemia (2.0); hsTroponin not elevated Patient occasionally requires transfusions during acute pain episodes; type/screen ordered Etiology likely multifactorial: sickle cell disease acute pain crisis +/- opioid hyperalgesia Pain control regimen: APAP 1000mg PO q8h scheduled Oxycodone 5 mg changed to 3 times daily scheduled, continue Dilaudid 1 mg IV every 2 hours as needed Continue home fentanyl patch (last applied 12/22) -Does appear to be gradually improving Holding off on NSAIDs given risk of renal injury in setting of hypotension and sickle cell crisis Continue IVF for intravascular volume expansion- Half-normal saline at 80 mL/h Continue home hydroxyurea, folate - Hgb stable 9.0 today Zofran PRN Incentive spirometry Trend daily CBC Hypotension Patient with intermittent hypotension which is not uncommon for her during sickle cell acute pain episodes, in part due to poor PO intake Continue 1/2 NSS @ 80mL/hr Encourage PO intake, continue to monitor, additional IVF boluses as needed - Meclizine 50 mg PRN TID for dizziness - BP stable in 90s-100s/50s-60s Hyperbilirubinemia Total bilirubin on admission 2.0, LFTs otherwise wnl; patient has a long history of hyperbilirubinemia during acute pain episodes - Total bilirubin improving to 1.6 today Abdominal exam benign Suspect elevated bilirubin is secondary to increased RBC turnover d/t sickle crisis Trend daily CMP GERD: continue pantoprazole 40mg IV bid Constipation: continue home miralax, added dulcolax daily. Mag citrate out of stock FEN: regular diet, 1/2 NSS at 80 cc/hr Code status: full code VTE ppx: SCDs PT/OT: ordered Dispo: medical/surgical (2) Elevated bilirubin: (3) Elevated troponin: (4) Nausea: (5) Sickle cell crisis: Admission and Anticipated Discharge Date Admission Date: December 21, 2021 Review of Systems Review of Systems: All systems reviewed & are unremarkable except as noted in HPI & below Physical Exam Constitutional: WD/WN, vitals as above Eyes: PERRL, conjunctivae normal, anicteric sclerae ENMT: external ear and nose normal, oropharynx normal Neck: trachea midline, no thyromegaly Respiratory: normal respiratory effort, lungs clear to auscultation Cardiovascular: RRR, no murmur, no edema Gastrointestinal (Abdomen): Inspection/Auscultation: abdomen normal to inspection Percussion/Palpation: abdomen soft; abdomen nontender Skin: no rashes, warm and dry Results & Data Results & Data ([facility]) Vital Signs (Past 12 Hours) Vital Signs Temp Pulse Resp BP Pulse Ox O2 Del Method 12/24/21 22:10 36.9 C 80 12 97/59 L 97 Room Air
[2021-12-25 08:05] LABS: Hematocrit (blood only) 23.3 % (34.1-44.9); Hemoglobin 8.8 g/dl (12.0-16.0); Mean Corpuscular Hemoglobin 39.6 pg (25.0-34.0); Mean Corpuscular Hgb Conc 37.8 g/dL (32.0-36.0); Mean Platelet Volume 9.9 fL (9.4-12.3); Nucleated RBC # (auto) 0.15 K/uL (0-0); Nucleated RBC % (auto) 3.1 %; Platelet Count 254 K/uL (130-400); RDW Coefficient of Variation 17.7 % (11.5-14.5); RDW Standard Deviation 68.5 fL (36.4-46.3); Red Blood Count 2.22 M/uL (3.93-5.22); White Blood Count 4.88 K/ul (4.8-10.8)
[2021-12-25 08:31] LABS: Alanine Aminotransferase 13 U/L (7-52); Albumin Globulin Ratio 1.3 (0.9-2); Albumin Level 3.9 gm/dl (3.4-5.0); Alkaline Phosphatase 47 U/L (34-104); Anion Gap 5 (3-11); Aspartate Aminotransferase 24 U/L (13-39); BUN Creatinine Ratio 17.4 (10-20); Bilirubin,Total 1.4 mg/dl (0.2-1.0); Blood Urea Nitrogen 8 mg/dl (6-23); Calcium 8.9 mg/dl (8.5-10.1); Carbon Dioxide 26 mmol/L (21-32); Chloride 103 mmol/L (98-107); Creatinine Clr Calc Pharmacy 178.1 ml/min; Est GFR (African American) > 150.0 ml/min; Est GFR (Non-African American) 140.2 ml/min; Globulin 3.1 gm/dl (2.5-4.0); Glucose 126 mg/dl (70-99(Fasting)); Potassium 3.7 mmol/L (3.5-5.1); Sodium 134 mmol/L (136-145)
[2021-12-25] MEDS: CHECK fentaNYL PATCH PLACEMENT SCH ×2 (08:48→16:13)
[2021-12-25] MEDS: oxyCODONE HCL IR 5 MG TAB (IMMEDIATE RELEASE) PO SCH ×3 (08:52→22:08)
[2021-12-25] MEDS: HYDROXYUREA 500 MG CAP PO SCH ×2 (08:53→22:02)
[2021-12-25] MEDS: POLYETHYLENE (MIRALAX) 17 GM PACK PO SCH ×2 (08:55→22:04)
[2021-12-25] MEDS ORDERED: bisacodyL 5 MG TABEC PO SCH (09:00)
[2021-12-25] MEDS: PANTOprazole 40 MG in SYRINGE 0 ML IV SCH ×2 (12:10→22:03)
[2021-12-25] MEDS: diphenhydrAMINE 50 MG/ML VIAL IV PRN ×2 (13:16→19:28)
[2021-12-25] MEDS ORDERED: MECLIZINE HCL 25 MG TAB PO STA (16:28)
[2021-12-25] MEDS ORDERED: NALOXONE HCL 0.4 MG/1 ML VIAL/CARP IV PRN (16:28)
[2021-12-25] MEDS: HYDROmorphone PCA 30 MG/30 ML IV PRN (17:37)
[2021-12-25] MEDS: SODIUM CHLORIDE 0.9% 1000ML 1,000 ML IV SCH (18:43)
--- NOTE | 2021-12-25 19:14 | Billing Data ---
Date of Service December 25, 2021 Coding Level of Care Code 66112 Subseq Hosp Care Lvl 3
--- NOTE | 2021-12-25 19:14 | Billing Data ---
Date of Service December 25, 2021 Coding Level of Care Code 14432 Subseq Hosp Care Lvl 3
[2021-12-25] MEDS: FOLIC ACID 1 MG TAB PO SCH (22:01)
[2021-12-25] MEDS: bisacodyL 5 MG TABEC PO SCH (22:02)
[2021-12-25] MEDS: MECLIZINE HCL 25 MG TAB PO SCH (22:03)
[2021-12-26] MEDS: diphenhydrAMINE 50 MG/ML VIAL IV PRN ×3 (01:25→13:14)
[2021-12-26] MEDS: ACETAMINOPHEN 500 MG TAB PO SCH ×3 (01:26→18:26)
[2021-12-26] MEDS: CHECK fentaNYL PATCH PLACEMENT SCH ×3 (01:30→16:49)
[2021-12-26] MEDS: SODIUM CHLORIDE 0.45 % 1,000 ML IV SCH ×2 (07:38→23:10)
[2021-12-26] MEDS: POLYETHYLENE (MIRALAX) 17 GM PACK PO SCH (09:35)
[2021-12-26] MEDS: MECLIZINE HCL 25 MG TAB PO SCH ×2 (09:37→13:15)
[2021-12-26] MEDS: PANTOprazole 40 MG in SYRINGE 0 ML IV SCH ×2 (09:37→23:08)
[2021-12-26] MEDS: HYDROXYUREA 500 MG CAP PO SCH ×2 (09:38→23:09)
[2021-12-26] MEDS: FAMOTIDINE 20 MG TAB PO SCH ×2 (09:39→23:09)
[2021-12-26] MEDS: bisacodyL 5 MG TABEC PO SCH ×2 (09:40→23:08)
[2021-12-26 10:23] LABS: Influenza A virus by PCR Negative (Negative); Influenza B virus by PCR Negative (Negative)
[2021-12-26 10:56] LABS: Alanine Aminotransferase 15 U/L (7-52); Albumin Globulin Ratio 1.3 (0.9-2); Albumin Level 4.1 gm/dl (3.4-5.0); Alkaline Phosphatase 43 U/L (34-104); Anion Gap 7 (3-11); Aspartate Aminotransferase 27 U/L (13-39); BUN Creatinine Ratio 15.2 (10-20); Bilirubin,Total 1.6 mg/dl (0.2-1.0); Blood Urea Nitrogen 7 mg/dl (6-23); Calcium 9.3 mg/dl (8.5-10.1); Carbon Dioxide 25 mmol/L (21-32); Chloride 103 mmol/L (98-107); Creatinine Clr Calc Pharmacy 178.1 ml/min; Est GFR (African American) > 150.0 ml/min; Est GFR (Non-African American) 140.2 ml/min; Globulin 3.1 gm/dl (2.5-4.0); Glucose 96 mg/dl (70-99(Fasting)); Potassium 3.6 mmol/L (3.5-5.1); Sodium 135 mmol/L (136-145); Total Protein 7.2 gm/dl (6.0-8.3)
[2021-12-26 11:32] LABS: Hematocrit (blood only) 23.1 % (34.1-44.9); Hemoglobin 8.8 g/dl (12.0-16.0); Mean Corpuscular Hemoglobin 39.6 pg (25.0-34.0); Mean Corpuscular Hgb Conc 38.1 g/dL (32.0-36.0); Mean Corpuscular Volume 104.1 fL (80.0-100.0); Mean Platelet Volume 10.4 fL (9.4-12.3); Nucleated RBC # (auto) 0.19 K/uL (0-0); Nucleated RBC % (auto) 3.5 %; Platelet Count 283 K/uL (130-400); RDW Standard Deviation 68.1 fL (36.4-46.3); Red Blood Count 2.22 M/uL (3.93-5.22); White Blood Count 5.36 K/ul (4.8-10.8)
[2021-12-26] MEDS: oxyCODONE HCL IR 5 MG TAB (IMMEDIATE RELEASE) PO SCH ×3 (12:13→23:06)
[2021-12-26] MEDS: SODIUM CHLORIDE 0.9% 1000ML 1,000 ML IV SCH (16:50)
--- NOTE | 2021-12-26 17:39 | Hospitalist Progress Note ---
Date of Service December 25, 2021 Assessment & Plan (1) Generalized pain: Plan: Donta Trevizo) is a 20yo female with sickle cell disease and chronic pain who presented to the ER with a three-day history of worsening generalized pain, nausea, and intermittent dizziness, which she describes as similar to prior acute sickle episodes. Sickle cell acute pain crisis CXR without acute abnormality, oxygen saturation adequate - no evidence of acute chest syndrome Admission labs notable for anemia (8.6), hyperbilirubinemia (2.0); hsTroponin not elevated Patient occasionally requires transfusions during acute pain episodes; type/screen ordered Etiology likely multifactorial: sickle cell disease acute pain crisis +/- opioid hyperalgesia Pain control regimen: APAP 1000mg PO q8h scheduled Oxycodone 5 mg changed to 3 times daily scheduled, continue Dilaudid Switched to [employer] 12/26 Continue home fentanyl patch (last applied 12/22) Holding off on NSAIDs given risk of renal injury in setting of hypotension and sickle cell crisis Continue IVF for intravascular volume expansion- Half-normal saline at 80 mL/h Continue home hydroxyurea, folate - Hgb stable Zofran PRN Incentive spirometry Trend daily CBC Cold-like symptoms POC flu test ordered, COVID test negative on admission Incentive spirometry Mucinex and Flonase ordered Hypotension Patient with intermittent hypotension which is not uncommon for her during sickle cell acute pain episodes, in part due to poor PO intake Continue 1/2 NSS @ 80mL/hr Encourage PO intake, continue to monitor, additional IVF boluses as needed - Meclizine Discontinued to increase Benadryl usage - BP stable in 90s-100s/50s-60s Hyperbilirubinemia Total bilirubin on admission 2.0, LFTs otherwise wnl; patient has a long history of hyperbilirubinemia during acute pain episodes Hemoglobin at 4.2 today Abdominal exam benign Suspect elevated bilirubin is secondary to increased RBC turnover d/t sickle crisis Trend daily CMP Patient also complaining of itching which could be secondary to hyperbilirubinemia, ordered Benadryl 100 mg 4 times daily as needed GERD: continue pantoprazole 40mg IV bid Constipation: continue home miralax, added dulcolax daily. Mag citrate out of stock FEN: regular diet, 1/2 NSS at 80 cc/hr Code status: full code VTE ppx: SCDs PT/OT: ordered Dispo: medical/surgical (2) Elevated bilirubin: (3) Elevated troponin: (4) Nausea: (5) Sickle cell crisis: Admission and Anticipated Discharge Date Admission Date: December 21, 2021 Supervising Physician Co-Signing Physician Notes I personally examined the patient and verified all amaro points of history and exam, discussed case, and agree with decision making with Dr Alas Main complaints today are being itchy, eyes itchy. May be a little bit congested. vitals noted nad heent nc at mmm breathing unlabored no accessory muscles good effort skin very dry but no rashes no pallor or icterus 1. Sickle cell crisis pain. IVFs, APAP 1000mg q8h, d Dilaudid [employer], Benadryl as needed. Suspect a lot of her general worsening as she is probably coming down with a viral URI 2. Hypotension. IVFs NSS @80/hr. improved Dispo: pending clinical improvement. anticipate home on dc Subjective Patient seen at bedside this morning. No acute events reported overnight. Patient is reporting more itchiness in the past 24 hours as well as some cold- like symptoms including congestion, runny nose and itchy throat. Denies any shortness of breath or chest pain. Pain overall seems to be about the same as compared to yesterday. No other complaints at this time. Review of Systems Review of Systems: All systems reviewed & are unremarkable except as noted in HPI & below Physical Exam Constitutional: WD/WN, vitals as above Eyes: PERRL, conjunctivae normal, anicteric sclerae ENMT: external ear and nose normal, oropharynx normal Neck: trachea midline, no thyromegaly Respiratory: normal respiratory effort, lungs clear to auscultation Cardiovascular: RRR, no murmur, no edema Gastrointestinal (Abdomen): Inspection/Auscultation: abdomen normal to inspection Percussion/Palpation: abdomen soft; abdomen nontender Skin: no rashes, warm and dry Results & Data Results & Data ([facility]) Vital Signs (Past 12 Hours) Vital Signs Temp Pulse Resp BP Pulse Ox O2 Del Method 12/25/21 17:41 37 C 80 18 91/58 L 98 Room Air 12/25/21 15:24 37.0 C 71 16 92/57 L 98 Room Air 12/25/21 08:59 106/70 12/25/21 08:07 36.4 C L 63 16 86/45 L 97 Room Air
--- NOTE | 2021-12-26 18:13 | Billing Data ---
Date of Service December 26, 2021 Coding Level of Care Code 33456 Subseq Hosp Care Lvl 3
[2021-12-26] MEDS: diphenhydrAMINE Capsule 25 MG CAP PO PRN (19:49)
[2021-12-26] MEDS: EUCERIN CR 120 GM JAR EXT SCH (23:07)
[2021-12-26] MEDS: ARTIFICIAL TEARS OP OINT 3.5 GM TUBE OP SCH (23:07)
[2021-12-26] MEDS: FOLIC ACID 1 MG TAB PO SCH (23:09)
[2021-12-27] MEDS: POLYETHYLENE (MIRALAX) 17 GM PACK PO SCH ×3 (00:20→20:33)
[2021-12-27] MEDS: CHECK fentaNYL PATCH PLACEMENT SCH ×3 (00:21→15:51)
[2021-12-27] MEDS: diphenhydrAMINE Capsule 25 MG CAP PO PRN ×3 (01:52→14:34)
[2021-12-27] MEDS: ACETAMINOPHEN 500 MG TAB PO SCH ×3 (01:54→16:04)
[2021-12-27] MEDS: HYDROmorphone PCA 30 MG/30 ML IV PRN ×3 (07:18→19:11)
[2021-12-27] MEDS: SODIUM CHLORIDE 0.45 % 1,000 ML IV SCH ×2 (09:09→20:36)
[2021-12-27] MEDS: oxyCODONE HCL IR 5 MG TAB (IMMEDIATE RELEASE) PO SCH ×3 (09:50→22:06)
[2021-12-27] MEDS: HYDROXYUREA 500 MG CAP PO SCH ×2 (09:50→20:33)
[2021-12-27] MEDS: FAMOTIDINE 20 MG TAB PO SCH ×2 (09:50→20:32)
[2021-12-27] MEDS: PANTOprazole 40 MG in SYRINGE 0 ML IV SCH ×2 (09:51→20:33)
[2021-12-27] MEDS: ARTIFICIAL TEARS OP OINT 3.5 GM TUBE OP SCH ×4 (09:51→20:32)
[2021-12-27] MEDS: bisacodyL 5 MG TABEC PO SCH ×2 (09:51→20:32)
[2021-12-27] MEDS: EUCERIN CR 120 GM JAR EXT SCH ×4 (09:52→20:33)
[2021-12-27 10:38] LABS: Hematocrit (blood only) 23.9 % (34.1-44.9); Hemoglobin 8.9 g/dl (12.0-16.0); Mean Corpuscular Hemoglobin 39.9 pg (25.0-34.0); Mean Corpuscular Hgb Conc 37.2 g/dL (32.0-36.0); Mean Corpuscular Volume 107.2 fL (80.0-100.0); Mean Platelet Volume 9.7 fL (9.4-12.3); Nucleated RBC # (auto) 0.23 K/uL (0-0); Nucleated RBC % (auto) 5.1 %; Platelet Count 308 K/uL (130-400); RDW Coefficient of Variation 18.1 % (11.5-14.5); RDW Standard Deviation 70.5 fL (36.4-46.3); Red Blood Count 2.23 M/uL (3.93-5.22); White Blood Count 4.49 K/ul (4.8-10.8)
[2021-12-27 11:18] LABS: Alanine Aminotransferase 17 U/L (7-52); Albumin Globulin Ratio 1.3 (0.9-2); Albumin Level 4.5 gm/dl (3.4-5.0); Alkaline Phosphatase 47 U/L (34-104); Anion Gap 4 (3-11); Aspartate Aminotransferase 31 U/L (13-39); BUN Creatinine Ratio 14.3 (10-20); Bilirubin,Total 1.6 mg/dl (0.2-1.0); Blood Urea Nitrogen 8 mg/dl (6-23); Calcium 9.6 mg/dl (8.5-10.1); Carbon Dioxide 29 mmol/L (21-32); Chloride 102 mmol/L (98-107); Creatinine Clr Calc Pharmacy 146.3 ml/min; Est GFR (African American) > 150.0 ml/min; Est GFR (Non-African American) 131.4 ml/min; Globulin 3.5 gm/dl (2.5-4.0); Glucose 70 mg/dl (70-99(Fasting)); Potassium 3.4 mmol/L (3.5-5.1); Sodium 135 mmol/L (136-145)
[2021-12-27] MEDS ORDERED: POTASSIUM CHLORIDE CRTAB 20 MEQ TABCR PO ONE (15:01)
[2021-12-27] MEDS: SODIUM CHLORIDE 0.9% 1000ML 1,000 ML IV SCH (15:51)
--- NOTE | 2021-12-27 16:56 | Hospitalist Progress Note ---
Date of Service December 27, 2021 Assessment & Plan (1) Generalized pain: Plan: Donta Trevizo) is a 20yo female with sickle cell disease and chronic pain who presented to the ER with a three-day history of worsening generalized pain, nausea, and intermittent dizziness, which she describes as similar to prior acute sickle episodes. Sickle cell acute pain crisis CXR without acute abnormality, oxygen saturation adequate - no evidence of acute chest syndrome Admission labs notable for anemia (8.6), hyperbilirubinemia (2.0); hsTroponin not elevated Patient occasionally requires transfusions during acute pain episodes; type/screen ordered Etiology likely multifactorial: sickle cell disease acute pain crisis +/- opioid hyperalgesia Pain control regimen: APAP 1000mg PO q8h scheduled Oxycodone 5 mg changed to 3 times daily scheduled, continue Dilaudid Switched to SHUTTLE HAND 12/26 Continue home fentanyl patch (last applied 12/22) Holding off on NSAIDs given risk of renal injury in setting of hypotension and sickle cell crisis Continue IVF for intravascular volume expansion- Half-normal saline at 80 mL/h Continue home hydroxyurea, folate - Hgb stable Zofran PRN Incentive spirometry Trend daily CBC Hypokalemia -Potassium today at 3.4, repleted with 40 of potassium chloride p.o. -Recheck with CMP tomorrow Cold-like symptoms POC flu test ordered, COVID test negative on admission Incentive spirometry Mucinex and Flonase ordered Hypotension Patient with intermittent hypotension which is not uncommon for her during sickle cell acute pain episodes, in part due to poor PO intake Continue 1/2 NSS @ 80mL/hr Encourage PO intake, continue to monitor, additional IVF boluses as needed - Meclizine Discontinued to increase Benadryl usage - BP stable in 90s-100s/50s-60s Hyperbilirubinemia Total bilirubin on admission 2.0, LFTs otherwise wnl; patient has a long his tory of hyperbilirubinemia during acute pain episodes Bilirubin downtrending, currently at 1.6 Abdominal exam benign Suspect elevated bilirubin is secondary to increased RBC turnover d/t sickle crisis Trend daily CMP Patient also complaining of itching which could be secondary to hyperbilirubinemia, ordered Benadryl 100 mg 4 times daily as needed GERD: continue pantoprazole 40mg IV bid Constipation: continue home miralax, added dulcolax daily. Mag citrate out of stock FEN: regular diet, 1/2 NSS at 80 cc/hr Code status: full code VTE ppx: SCDs PT/OT: ordered Dispo: medical/surgical (2) Elevated bilirubin: (3) Elevated troponin: (4) Nausea: (5) Sickle cell crisis: Admission and Anticipated Discharge Date Admission Date: December 21, 2021 Supervising Physician Co-Signing Physician Notes I personally examined the patient and verified all amaro points of history and exam, discussed case, and agree with decision making with Dr Alas Eyes more itchy, itchy eyes move around, more congested, sore throat. vitals noted nad heent nc at mmm eyes mildly swollen and injected, mild to moderate pharyngeal erythema symmetric with no exudate. Anterior cervical adenopathy, sinus tenderness to palpation left greater than right, lungs clear no rales rhonchi or wheezes breathing unlabored no accessory muscles good effort skin very dry but no rashes no pallor or icterus. As we were discussing things she had a PNES episode similarly characteristic of previous once I have witnessed, she was safe Thal time, and coherent immediately afterwards 1. Sickle cell crisis pain. IVFs, APAP 1000mg q8h, Dilaudid SHUTTLE HAND, Benadryl as needed. 2. Viral infectionaggressive supportive care as best as possible. Discussed in depth, offered reassurance to the best my ability. Dispo: pending clinical improvement. anticipate home on dc Subjective Patient seen at bedside this morning. Patient was asleep upon my arrival, so no new or meaningful HPI gathered this morning. No complaints from nursing provided throughout the day. Review of Systems Review of Systems: As per HPI Physical Exam Constitutional: WD/WN, vitals as above Neck: trachea midline, no thyromegaly Respiratory: normal respiratory effort, lungs clear to auscultation Cardiovascular: RRR, no murmur, no edema Gastrointestinal (Abdomen): Inspection/Auscultation: abdomen normal to inspection Percussion/Palpation: abdomen soft; abdomen nontender Skin: no rashes, warm and dry Results & Data Results & Data ([facility]) Vital Signs (Past 12 Hours) Vital Signs Temp Pulse Resp BP Pulse Ox O2 Del Method 12/27/21 15:56 36.8 C 79 16 91/47 L 98 Room Air 12/27/21 07:43 36.9 C 75 16 96/54 L 98 Room Air
--- NOTE | 2021-12-27 18:17 | Billing Data ---
Date of Service December 27, 2021 Coding Level of Care Code 41728 Subseq Hosp Care Lvl 3
[2021-12-27] MEDS ORDERED: ERGOCALCIFEROL 50,000 UNITS 1250 MCG CAP PO ONE (18:30)
[2021-12-27] MEDS: diphenhydrAMINE 50 MG/ML VIAL IV PRN (20:31)
[2021-12-27] MEDS: FOLIC ACID 1 MG TAB PO SCH (20:32)
[2021-12-27] MEDS: guaiFENesin 600 MG TABCR PO SCH (20:37)
[2021-12-28] MEDS: CHECK fentaNYL PATCH PLACEMENT SCH ×3 (00:14→15:37)
[2021-12-28] MEDS: POLYETHYLENE (MIRALAX) 17 GM PACK PO SCH ×3 (00:32→20:46)
[2021-12-28] MEDS: ACETAMINOPHEN 500 MG TAB PO SCH ×3 (00:47→16:37)
[2021-12-28] MEDS: diphenhydrAMINE 50 MG/ML VIAL IV PRN ×4 (03:09→23:54)
[2021-12-28] MEDS: fentaNYL 12 MCG/HR TDSY TD SCH (06:04)
[2021-12-28] MEDS: HYDROmorphone PCA 30 MG/30 ML IV PRN ×2 (06:59→19:00)
[2021-12-28 07:19] LABS: Hematocrit (blood only) 20.5 % (34.1-44.9); Hemoglobin 7.8 g/dl (12.0-16.0); Mean Corpuscular Hemoglobin 39.8 pg (25.0-34.0); Mean Corpuscular Volume 104.6 fL (80.0-100.0); Mean Platelet Volume 9.8 fL (9.4-12.3); Nucleated RBC # (auto) 0.21 K/uL (0-0); Nucleated RBC % (auto) 5.4 %; Platelet Count 302 K/uL (130-400); RDW Coefficient of Variation 18.1 % (11.5-14.5); RDW Standard Deviation 68.9 fL (36.4-46.3); Red Blood Count 1.96 M/uL (3.93-5.22); White Blood Count 3.91 K/ul (4.8-10.8)
[2021-12-28 07:38] LABS: Alanine Aminotransferase 16 U/L (7-52); Albumin Globulin Ratio 1.2 (0.9-2); Albumin Level 3.9 gm/dl (3.4-5.0); Alkaline Phosphatase 43 U/L (34-104); Anion Gap 6 (3-11); Aspartate Aminotransferase 29 U/L (13-39); BUN Creatinine Ratio 12.7 (10-20); Bilirubin,Total 1.4 mg/dl (0.2-1.0); Blood Urea Nitrogen 7 mg/dl (6-23); C Reactive Protein 1.09 mg/dl (0-0.5); Carbon Dioxide 26 mmol/L (21-32); Chloride 105 mmol/L (98-107); Creatinine Clr Calc Pharmacy 148.9 ml/min; Est GFR (African American) > 150.0 ml/min; Est GFR (Non-African American) 132.2 ml/min; Globulin 3.2 gm/dl (2.5-4.0); Glucose 88 mg/dl (70-99(Fasting)); Potassium 3.8 mmol/L (3.5-5.1); Sodium 137 mmol/L (136-145); Total Protein 7.1 gm/dl (6.0-8.3)
[2021-12-28] MEDS: SODIUM CHLORIDE 0.45 % 1,000 ML IV SCH ×2 (08:43→20:44)
[2021-12-28] MEDS: EUCERIN CR 120 GM JAR EXT SCH ×4 (09:06→21:09)
[2021-12-28] MEDS: ARTIFICIAL TEARS OP OINT 3.5 GM TUBE OP SCH ×4 (09:06→21:09)
[2021-12-28] MEDS: oxyCODONE HCL IR 5 MG TAB (IMMEDIATE RELEASE) PO SCH ×3 (11:06→22:17)
[2021-12-28] MEDS: FLUTICASONE PROPIONATE NA SPR 16 GM BTL SCH (11:06)
[2021-12-28] MEDS: PANTOprazole 40 MG in SYRINGE 0 ML IV SCH ×2 (11:06→20:45)
[2021-12-28] MEDS: HYDROXYUREA 500 MG CAP PO SCH ×2 (11:07→20:46)
[2021-12-28] MEDS: guaiFENesin 600 MG TABCR PO SCH ×2 (11:07→20:46)
[2021-12-28] MEDS: FAMOTIDINE 20 MG TAB PO SCH ×2 (11:08→20:46)
[2021-12-28] MEDS: bisacodyL 5 MG TABEC PO SCH ×2 (11:08→20:46)
--- NOTE | 2021-12-28 14:57 | Hospitalist Progress Note ---
Date of Service December 28, 2021 Assessment & Plan (1) Generalized pain: Plan: Donta Trevizo) is a 20yo female with sickle cell disease and chronic pain who presented to the ER with a three-day history of worsening generalized pain, nausea, and intermittent dizziness, which she describes as similar to prior acute sickle episodes. Sickle cell acute pain crisis CXR without acute abnormality, oxygen saturation adequate - no evidence of acute chest syndrome Admission labs notable for anemia (8.6), hyperbilirubinemia (2.0); hsTroponin not elevated Patient occasionally requires transfusions during acute pain episodes; type/screen ordered Etiology likely multifactorial: sickle cell disease acute pain crisis +/- opioid hyperalgesia Pain control regimen: APAP 1000mg PO q8h scheduled Oxycodone 5 mg changed to 3 times daily scheduled, continue Dilaudid Switched to AIR BRAKE ADJUSTER 12/26 Continue home fentanyl patch (last applied 12/22) Holding off on NSAIDs given risk of renal injury in setting of hypotension and sickle cell crisis Continue IVF for intravascular volume expansion- Half-normal saline at 80 mL/h Continue home hydroxyurea, folate - Hgb drop to 7.8, continue to monitor for now. No increase in total bilirubin. Zofran PRN Incentive spirometry Trend daily CBC Hypokalemia -Potassium today at 3.8, no repletion today -Recheck with CMP tomorrow Cold-like symptoms POC flu test ordered, COVID test negative on admission, this is likely representing an acute viral upper respiratory illness. Incentive spirometry Mucinex and Flonase ordered Hypotension Patient with intermittent hypotension which is not uncommon for her during sickle cell acute pain episodes, in part due to poor PO intake Continue 1/2 NSS @ 80mL/hr Encourage PO intake, continue to monitor, additional IVF boluses as needed - Meclizine Discontinued to increase Benadryl usage - BP stable in 90s-100s/50s-60s Hyperbilirubinemia Total bilirubin on admission 2.0, LFTs otherwise wnl; patient has a long history of hyperbilirubinemia during acute pain episodes Bilirubin downtrending, currently at 1.6 Abdominal exam benign Suspect elevated bilirubin is secondary to increased RBC turnover d/t sickle crisis Trend daily CMP Patient also complaining of itching which could be secondary to hyperbilirubinemia, ordered Benadryl 100 mg 4 times daily as needed GERD: continue pantoprazole 40mg IV bid Constipation: continue home miralax, added dulcolax daily. Mag citrate out of stock FEN: regular diet, 1/2 NSS at 80 cc/hr Code status: full code VTE ppx: SCDs PT/OT: ordered Dispo: medical/surgical (2) Elevated bilirubin: (3) Elevated troponin: (4) Nausea: (5) Sickle cell crisis: Admission and Anticipated Discharge Date Admission Date: December 21, 2021 Supervising Physician Co-Signing Physician Notes I personally examined the patient and verified all amaro points of history and exam, discussed case, and agree with decision making with Dr Alas Itchy eyes and itchy skin less of a problem, still dizzy. Does hurt all overworried that it may be hyperalgesia. vitals noted nad heent nc at mmm breathing unlabored no accessory muscle use good effort. Skin shows no rashes no pallor or icterus. Visibly appears a bit less dry than yesterday. 1. Sickle cell crisis pain. IVFs, APAP 1000mg q8h, continue Dilaudid AIR BRAKE ADJUSTER, Benadryl as needed. 2. Viral infectionaggressive supportive care as best as possible. Suspect what she is feeling as "hyperalgesia" is probably more than myalgias and aches that come with a viral processoffered reassurance to that regard. Dispo: pending clinical improvement. anticipate home on dc Subjective Patient seen at bedside this afternoon. No acute events reported overnight. Patient reports improvement in cold-like symptoms after adding Flonase and Mucinex yesterday as well as NSAID eyedrops. Otherwise continues to have about the same amount of pain. Denies any nausea or vomiting. Reports good p.o. intake. Otherwise no other complaints today. Review of Systems Review of Systems: All systems reviewed & are unremarkable except as noted in HPI & below Physical Exam Constitutional: WD/WN, vitals as above Eyes: PERRL, conjunctivae normal, anicteric sclerae ENMT: external ear and nose normal, oropharynx normal Neck: trachea midline, no thyromegaly Respiratory: normal respiratory effort, lungs clear to auscultation Cardiovascular: RRR, no murmur, no edema Gastrointestinal (Abdomen): Inspection/Auscultation: abdomen normal to inspection Percussion/Palpation: abdomen soft; abdomen nontender Skin: no rashes, warm and dry Psychiatric: A+Ox3, euthymic affect Results & Data Results & Data ([facility]) Vital Signs (Past 12 Hours) Vital Signs Temp Pulse Pulse Resp BP Pulse Ox O2 Del Method 12/28/21 11:42 36.7 C 72 14 96/68 L 98 Room Air 12/28/21 07:26 37.2 C 75 14 92/50 L 97 Room Air
[2021-12-28] MEDS: SODIUM CHLORIDE 0.9% 1000ML 1,000 ML IV SCH (15:37)
--- NOTE | 2021-12-28 18:26 | Billing Data ---
Date of Service December 28, 2021 Coding Level of Care Code 03107 Subseq Hosp Care Lvl 3
[2021-12-28] MEDS: FOLIC ACID 1 MG TAB PO SCH (20:46)
[2021-12-28] MEDS: DICLOFENAC SOD 0.1% OPH SOLN 2.5 ML BTL OP PRN (22:20)
[2021-12-29] MEDS: CHECK fentaNYL PATCH PLACEMENT SCH ×3 (00:02→15:17)
[2021-12-29] MEDS: ACETAMINOPHEN 500 MG TAB PO SCH ×3 (00:03→15:47)
[2021-12-29] MEDS: SODIUM CHLORIDE 0.45 % 1,000 ML IV SCH ×2 (05:55→17:48)
[2021-12-29] MEDS: HYDROmorphone PCA 30 MG/30 ML IV PRN ×3 (05:56→18:56)
[2021-12-29] MEDS: diphenhydrAMINE 50 MG/ML VIAL IV PRN ×3 (06:06→18:20)
[2021-12-29] MEDS: ARTIFICIAL TEARS OP OINT 3.5 GM TUBE OP SCH ×4 (08:54→21:08)
[2021-12-29] MEDS: FLUTICASONE PROPIONATE NA SPR 16 GM BTL SCH (08:55)
[2021-12-29] MEDS: oxyCODONE HCL IR 5 MG TAB (IMMEDIATE RELEASE) PO SCH ×3 (08:55→22:07)
[2021-12-29] MEDS: FAMOTIDINE 20 MG TAB PO SCH ×2 (08:56→21:06)
[2021-12-29] MEDS: guaiFENesin 600 MG TABCR PO SCH ×2 (08:56→21:05)
[2021-12-29] MEDS: HYDROXYUREA 500 MG CAP PO SCH ×2 (08:56→21:06)
[2021-12-29] MEDS: bisacodyL 5 MG TABEC PO SCH ×2 (08:56→21:05)
[2021-12-29] MEDS: EUCERIN CR 120 GM JAR EXT SCH ×4 (08:57→21:29)
[2021-12-29] MEDS: PANTOprazole 40 MG in SYRINGE 0 ML IV SCH ×2 (08:57→21:06)
[2021-12-29] MEDS: POLYETHYLENE (MIRALAX) 17 GM PACK PO SCH ×2 (08:58→21:05)
[2021-12-29 13:25] LABS: Alanine Aminotransferase 16 U/L (7-52); Albumin Globulin Ratio 1.3 (0.9-2); Alkaline Phosphatase 49 U/L (34-104); Anion Gap 5 (3-11); Aspartate Aminotransferase 26 U/L (13-39); BUN Creatinine Ratio 15.2 (10-20); Bilirubin,Total 1.3 mg/dl (0.2-1.0); Blood Urea Nitrogen 7 mg/dl (6-23); Calcium 8.9 mg/dl (8.5-10.1); Carbon Dioxide 27 mmol/L (21-32); Chloride 104 mmol/L (98-107); Creatinine Clr Calc Pharmacy 178.1 ml/min; Est GFR (African American) > 150.0 ml/min; Est GFR (Non-African American) 140.2 ml/min; Globulin 3.1 gm/dl (2.5-4.0); Glucose 86 mg/dl (70-99(Fasting)); Potassium 3.5 mmol/L (3.5-5.1); Sodium 136 mmol/L (136-145); Total Protein 7.1 gm/dl (6.0-8.3)
[2021-12-29 13:36] LABS: Hematocrit (blood only) 21.4 % (34.1-44.9); Mean Corpuscular Hemoglobin 39.8 pg (25.0-34.0); Mean Corpuscular Hgb Conc 37.4 g/dL (32.0-36.0); Mean Corpuscular Volume 106.5 fL (80.0-100.0); Mean Platelet Volume 9.8 fL (9.4-12.3); Nucleated RBC # (auto) 0.31 K/uL (0-0); Nucleated RBC % (auto) 6.4 %; Platelet Count 337 K/uL (130-400); RDW Coefficient of Variation 18.3 % (11.5-14.5); RDW Standard Deviation 71.5 fL (36.4-46.3); Red Blood Count 2.01 M/uL (3.93-5.22); White Blood Count 4.85 K/ul (4.8-10.8)
[2021-12-29] MEDS ORDERED: ALUMINUM/MAGNESIUM/SIMETH (MAALOX MAX) 30 ML UDC PO STA (15:33)
[2021-12-29] MEDS: SODIUM CHLORIDE 0.9% 1000ML 1,000 ML IV SCH (15:41)
--- NOTE | 2021-12-29 17:41 | Hospitalist Progress Note ---
Date of Service December 29, 2021 Assessment & Plan (1) Generalized pain: Plan: Donta Trevizo) is a 20yo female with sickle cell disease and chronic pain who presented to the ER with a three-day history of worsening generalized pain, nausea, and intermittent dizziness, which she describes as similar to prior acute sickle episodes. Sickle cell acute pain crisis CXR without acute abnormality, oxygen saturation adequate - no evidence of acute chest syndrome Admission labs notable for anemia (8.6), hyperbilirubinemia (2.0); hsTroponin not elevated Patient occasionally requires transfusions during acute pain episodes; type/screen ordered Etiology likely multifactorial: sickle cell disease acute pain crisis +/- opioid hyperalgesia Pain control regimen: APAP 1000mg PO q8h scheduled Oxycodone 5 mg changed to 3 times daily scheduled, continue Dilaudid Switched to MARKETING COPYWRITER 12/26 Continue home fentanyl patch (last applied 12/22) Holding off on NSAIDs given risk of renal injury in setting of hypotension and sickle cell crisis Continue IVF for intravascular volume expansion- Half-normal saline at 80 mL/h Continue home hydroxyurea, folate - Hgb 8.0, bili reassuring Zofran PRN Incentive spirometry Trend daily CBC Hypokalemia -Potassium today at 3.5, no repletion today -Recheck with CMP tomorrow Cold-like symptoms POC flu test ordered, COVID test negative on admission, this is likely representing an acute viral upper respiratory illness. Incentive spirometry Mucinex and Flonase ordered Hypotension Patient with intermittent hypotension which is not uncommon for her during sickle cell acute pain episodes, in part due to poor PO intake Continue 1/2 NSS @ 80mL/hr Encourage PO intake, continue to monitor, additional IVF boluses as needed - Meclizine Discontinued to increase Benadryl usage - BP stable in 90s-100s/50s-60s Hyperbilirubinemia Total bilirubin on admission 2.0, LFTs otherwise wnl; patient has a long history of hyperbilirubinemia during acute pain episodes Bilirubin downtrending, currently at 1.3 Abdominal exam benign Suspect elevated bilirubin is secondary to increased RBC turnover d/t sickle crisis Trend daily CMP Patient also complaining of itching which could be secondary to hyperbilirubinemia, ordered Benadryl 100 mg 4 times daily as needed GERD: continue pantoprazole 40mg IV bid Constipation: continue home miralax, added dulcolax daily. [place] qid scheduled FEN: regular diet, 1/2 NSS at 80 cc/hr Code status: full code VTE ppx: SCDs PT/OT: ordered Dispo: medical/surgical (2) Elevated bilirubin: (3) Elevated troponin: (4) Nausea: (5) Sickle cell crisis: Admission and Anticipated Discharge Date Admission Date: December 21, 2021 Subjective Still with sore throat, a little bit puffy eyes but a lot less itchy. Skin less itchy. Still hurts all over herbut thinks that sickle cell pain may be improving. Still somewhat dizzy. Still constipated. Review of Systems Review of Systems: All systems reviewed & are unremarkable except as noted in HPI & below Physical Exam Physical Exam: In general she is awake and alert pleasant still fatigued no acute distress. HEENT normocephalic atraumatic mucous membranes are moist still has ongoing air oropharyngeal erythema but no exudate patent airway. Breathing unlabored no accessory muscle use good effort. Skin shows no rashes no pallor or icterus. Neuro without focal deficits. Results & Data Results & Data ([facility]) Vital Signs (Past 12 Hours) Vital Signs Temp Pulse Resp BP Pulse Ox O2 Del Method 12/29/21 15:08 98.6 F 86 16 100/63 100 Room Air 12/29/21 11:02 97.9 F 81 16 102/63 99 Room Air 12/29/21 07:23 98.4 F 74 16 96/58 L 98 Room Air PG Care Time/CCT Total # of Minutes Spent Total Time Spent with Patient: Total time spent is greater than 50% in coordination of care (as documented) at patient's floor/unit and/or counseling patient: Coding Level of Care Code 24752 Subseq Hosp Care Lvl 3 Diagnoses Generalized pain R52 Elevated bilirubin R17 Elevated troponin R77.8 Nausea R11.0 Sickle cell crisis D57.00
[2021-12-29] MEDS: ALUMINUM/MAGNESIUM/SIMETH (MAALOX MAX) 30 ML UDC PO SCH (21:07)
[2021-12-29] MEDS: FOLIC ACID 1 MG TAB PO SCH (21:07)
[2021-12-29] MEDS: DICLOFENAC SOD 0.1% OPH SOLN 2.5 ML BTL OP PRN (21:09)
[2021-12-30] MEDS: diphenhydrAMINE 50 MG/ML VIAL IV PRN ×4 (00:28→18:19)
[2021-12-30] MEDS: CHECK fentaNYL PATCH PLACEMENT SCH ×3 (00:29→15:47)
[2021-12-30] MEDS: ACETAMINOPHEN 500 MG TAB PO SCH ×3 (00:29→15:47)
[2021-12-30] MEDS: SODIUM CHLORIDE 0.45 % 1,000 ML IV SCH ×2 (06:20→18:21)
[2021-12-30] MEDS: HYDROmorphone PCA 30 MG/30 ML IV PRN ×3 (06:56→21:35)
[2021-12-30] MEDS: oxyCODONE HCL IR 5 MG TAB (IMMEDIATE RELEASE) PO SCH ×3 (08:39→22:26)
[2021-12-30] MEDS: PANTOprazole 40 MG in SYRINGE 0 ML IV SCH ×2 (08:40→20:55)
[2021-12-30] MEDS: FAMOTIDINE 20 MG TAB PO SCH ×2 (08:40→20:54)
[2021-12-30] MEDS: HYDROXYUREA 500 MG CAP PO SCH ×2 (08:40→20:57)
[2021-12-30] MEDS: guaiFENesin 600 MG TABCR PO SCH ×2 (08:40→20:54)
[2021-12-30] MEDS: EUCERIN CR 120 GM JAR EXT SCH ×4 (08:41→21:00)
[2021-12-30] MEDS: ALUMINUM/MAGNESIUM/SIMETH (MAALOX MAX) 30 ML UDC PO SCH ×4 (08:41→20:55)
[2021-12-30] MEDS: FLUTICASONE PROPIONATE NA SPR 16 GM BTL SCH (08:41)
[2021-12-30] MEDS: ARTIFICIAL TEARS OP OINT 3.5 GM TUBE OP SCH ×4 (08:41→20:56)
[2021-12-30] MEDS: bisacodyL 5 MG TABEC PO SCH ×2 (08:41→20:54)
[2021-12-30] MEDS: POLYETHYLENE (MIRALAX) 17 GM PACK PO SCH ×2 (08:45→20:55)
[2021-12-30 09:18] LABS: Hematocrit (blood only) 22.1 % (34.1-44.9); Hemoglobin 8.3 g/dl (12.0-16.0); Mean Corpuscular Hemoglobin 40.5 pg (25.0-34.0); Mean Corpuscular Hgb Conc 37.6 g/dL (32.0-36.0); Mean Corpuscular Volume 107.8 fL (80.0-100.0); Mean Platelet Volume 9.4 fL (9.4-12.3); Nucleated RBC # (auto) 0.25 K/uL (0-0); Nucleated RBC % (auto) 6.1 %; Platelet Count 353 K/uL (130-400); RDW Coefficient of Variation 18.5 % (11.5-14.5); RDW Standard Deviation 74.2 fL (36.4-46.3); Red Blood Count 2.05 M/uL (3.93-5.22); White Blood Count 4.07 K/ul (4.8-10.8)
[2021-12-30 09:37] LABS: Alanine Aminotransferase 18 U/L (7-52); Albumin Globulin Ratio 1.2 (0.9-2); Alkaline Phosphatase 58 U/L (34-104); Anion Gap 6 (3-11); Aspartate Aminotransferase 29 U/L (13-39); Bilirubin,Total 1.3 mg/dl (0.2-1.0); Blood Urea Nitrogen 6 mg/dl (6-23); Carbon Dioxide 27 mmol/L (21-32); Chloride 103 mmol/L (98-107); Creatinine Clr Calc Pharmacy 178.1 ml/min; Est GFR (African American) > 150.0 ml/min; Est GFR (Non-African American) 140.2 ml/min; Globulin 3.3 gm/dl (2.5-4.0); Glucose 107 mg/dl (70-99(Fasting)); Potassium 3.8 mmol/L (3.5-5.1); Sodium 136 mmol/L (136-145); Total Protein 7.3 gm/dl (6.0-8.3)
--- NOTE | 2021-12-30 15:07 | Hospitalist Progress Note ---
Date of Service December 30, 2021 Assessment & Plan (1) Generalized pain: Plan: Donta Trevizo) is a 20yo female with sickle cell disease and chronic pain who presented to the ER with a three-day history of worsening generalized pain, nausea, and intermittent dizziness, which she describes as similar to prior acute sickle episodes. Sickle cell acute pain crisis CXR without acute abnormality, oxygen saturation adequate - no evidence of acute chest syndrome Admission labs notable for anemia (8.6), hyperbilirubinemia (2.0); hsTroponin not elevated Patient occasionally requires transfusions during acute pain episodes; type/screen ordered Etiology likely multifactorial: sickle cell disease acute pain crisis +/- opioid hyperalgesia Pain control regimen: APAP 1000mg PO q8h scheduled Oxycodone 5 mg changed to 3 times daily scheduled, continue Dilaudid Switched to HOT METAL MIXER OPERATOR 12/26 Continue home fentanyl patch (last applied 12/22) Holding off on NSAIDs given risk of renal injury in setting of hypotension and sickle cell crisis Continue IVF for intravascular volume expansion- Half-normal saline at 80 mL/h Continue home hydroxyurea, folate - Hgb drop to stable at 8.3. Zofran PRN Incentive spirometry Trend daily CBC Hypokalemia -Potassium today at 3.8, no repletion today -Recheck with CMP tomorrow Cold-like symptoms POC flu test ordered, COVID test negative on admission, this is likely representing an acute viral upper respiratory illness. Incentive spirometry Mucinex and Flonase ordered Hypotension Patient with intermittent hypotension which is not uncommon for her during sickle cell acute pain episodes, in part due to poor PO intake Continue 1/2 NSS @ 80mL/hr Encourage PO intake, continue to monitor, additional IVF boluses as needed - Meclizine Discontinued to increase Benadryl usage - BP stable in 90s-100s/50s-60s Hyperbilirubinemia Total bilirubin on admission 2.0, LFTs otherwise wnl; patient has a long history of hyperbilirubinemia during acute pain episodes Bilirubin downtrending, currently at 1.6 Abdominal exam benign Suspect elevated bilirubin is secondary to increased RBC turnover d/t sickle crisis Trend daily CMP Patient also complaining of itching which could be secondary to hyperbilirubinemia, ordered Benadryl 100 mg 4 times daily as needed GERD: continue pantoprazole 40mg IV bid Constipation: continue home miralax, added dulcolax daily. Mag citrate out of stock FEN: regular diet, 1/2 NSS at 80 cc/hr Code status: full code VTE ppx: SCDs PT/OT: ordered Dispo: medical/surgical (2) Elevated bilirubin: (3) Elevated troponin: (4) Nausea: (5) Sickle cell crisis: Admission and Anticipated Discharge Date Admission Date: December 21, 2021 Supervising Physician Co-Signing Physician Notes I personally examined the patient and verified all amaro points of history and exam, discussed case, and agree with decision making with Dr Alas HPI still a bit of botherbut now more puffy than itchy. Overall feeling a bit better. Sore throat about the same. Pain about the same, but notes that between the balance of pain control and dizziness she would not like to increase Dilaudid dosing at this point in time vitals noted nad heent nc at mmm breathing unlabored no accessory muscle use good effort. Skin shows no rashes no pallor or icterus. Eyelids somewhat puffy, no conjunctival injection at this point 1. Sickle cell crisis pain. IVFs, APAP 1000mg q8h, continue Dilaudid HOT METAL MIXER OPERATOR, Benadryl as needed. Seems to have been improving, then had a viral illness create a bit of a setback, seems to be improving again. 2. Viral infectionaggressive supportive care as best as possible. Suspect what she is feeling as "hyperalgesia" is probably more than myalgias and aches that come with a viral processoffered reassurance to that regard. Showing slow improvementdiscussed that I suspect her conjunctival symptoms will start to improve over the next few days, and should it persist beyond that I would start to worry about the diclofenac drops themselves causing an irritantbut I suspect things will improve and will be able to stop the drops before then Dispo: pending clinical improvement. anticipate home on dc Subjective Patient seen at bedside in the afternoon. No acute events reported overnight. Seems to be somewhat better overall with a mild decrease in her viral symptoms. Eyes continue to be itchy and somewhat swollen. Appetite is still good. Pain is about the same. Otherwise no other complaints at this time. Review of Systems Review of Systems: All systems reviewed & are unremarkable except as noted in HPI & below Physical Exam Constitutional: WD/WN, vitals as above Neck: trachea midline, no thyromegaly Respiratory: normal respiratory effort, lungs clear to auscultation Cardiovascular: RRR, no murmur, no edema Gastrointestinal (Abdomen): Inspection/Auscultation: abdomen normal to inspection Skin: no rashes, warm and dry Psychiatric: A+Ox3, euthymic affect Results & Data Results & Data ([facility]) Vital Signs (Past 12 Hours) Vital Signs Temp Pulse Pulse Resp BP Pulse Ox O2 Del Method 12/30/21 10:58 36.8 C 78 14 94/57 L 98 Room Air 12/30/21 08:11 36.9 C 93 H 16 97/58 L 96 Room Air 12/30/21 03:19 36.6 C 85 16 98/62 L 98 Room Air
--- NOTE | 2021-12-30 15:35 | Billing Data ---
Date of Service December 30, 2021 Coding Level of Care Code 92915 Subseq Hosp Care Lvl 3
[2021-12-30] MEDS: SODIUM CHLORIDE 0.9% 1000ML 1,000 ML IV SCH (15:47)
[2021-12-30] MEDS: FOLIC ACID 1 MG TAB PO SCH (20:53)
[2021-12-30] MEDS: DICLOFENAC SOD 0.1% OPH SOLN 2.5 ML BTL OP PRN (20:56)
[2021-12-31] MEDS: ACETAMINOPHEN 500 MG TAB PO SCH ×3 (00:27→16:28)
[2021-12-31] MEDS: diphenhydrAMINE 50 MG/ML VIAL IV PRN ×3 (00:27→12:11)
[2021-12-31] MEDS: CHECK fentaNYL PATCH PLACEMENT SCH ×3 (01:18→16:28)
[2021-12-31] MEDS: SODIUM CHLORIDE 0.45 % 1,000 ML IV SCH ×2 (06:12→18:32)
[2021-12-31] MEDS: fentaNYL 12 MCG/HR TDSY TD SCH (06:12)
[2021-12-31 08:55] LABS: Hematocrit (blood only) 21.5 % (34.1-44.9); Hemoglobin 8.1 g/dl (12.0-16.0); Mean Corpuscular Hemoglobin 40.9 pg (25.0-34.0); Mean Corpuscular Hgb Conc 37.7 g/dL (32.0-36.0); Mean Corpuscular Volume 108.6 fL (80.0-100.0); Mean Platelet Volume 9.7 fL (9.4-12.3); Nucleated RBC # (auto) 0.25 K/uL (0-0); Platelet Count 412 K/uL (130-400); RDW Coefficient of Variation 18.6 % (11.5-14.5); RDW Standard Deviation 73.3 fL (36.4-46.3); Red Blood Count 1.98 M/uL (3.93-5.22); White Blood Count 4.14 K/ul (4.8-10.8)
[2021-12-31 09:21] LABS: Alanine Aminotransferase 19 U/L (7-52); Albumin Globulin Ratio 1.1 (0.9-2); Albumin Level 3.9 gm/dl (3.4-5.0); Alkaline Phosphatase 54 U/L (34-104); Anion Gap 3 (3-11); Aspartate Aminotransferase 28 U/L (13-39); BUN Creatinine Ratio 12.8 (10-20); Bilirubin,Total 1.2 mg/dl (0.2-1.0); Blood Urea Nitrogen 6 mg/dl (6-23); Calcium 9.2 mg/dl (8.5-10.1); Carbon Dioxide 29 mmol/L (21-32); Chloride 103 mmol/L (98-107); Creatinine Clr Calc Pharmacy 174.3 ml/min; Est GFR (African American) > 150.0 ml/min; Est GFR (Non-African American) 139.2 ml/min; Globulin 3.4 gm/dl (2.5-4.0); Glucose 83 mg/dl (70-99(Fasting)); Sodium 135 mmol/L (136-145); Total Protein 7.3 gm/dl (6.0-8.3)
[2021-12-31] MEDS: FLUTICASONE PROPIONATE NA SPR 16 GM BTL SCH (09:37)
[2021-12-31] MEDS: ALUMINUM/MAGNESIUM/SIMETH (MAALOX MAX) 30 ML UDC PO SCH ×4 (09:37→20:31)
[2021-12-31] MEDS: bisacodyL 5 MG TABEC PO SCH ×2 (09:38→20:29)
[2021-12-31] MEDS: HYDROXYUREA 500 MG CAP PO SCH ×2 (09:38→20:30)
[2021-12-31] MEDS: guaiFENesin 600 MG TABCR PO SCH ×2 (09:38→20:30)
[2021-12-31] MEDS: FAMOTIDINE 20 MG TAB PO SCH ×2 (09:38→20:31)
[2021-12-31] MEDS: oxyCODONE HCL IR 5 MG TAB (IMMEDIATE RELEASE) PO SCH ×3 (09:40→20:29)
[2021-12-31] MEDS: POLYETHYLENE (MIRALAX) 17 GM PACK PO SCH ×2 (09:41→20:32)
[2021-12-31 09:42] LABS: Vitamin B12 472 pg/ml (180-914)
[2021-12-31] MEDS: ARTIFICIAL TEARS OP OINT 3.5 GM TUBE OP SCH ×4 (09:42→20:31)
[2021-12-31] MEDS: EUCERIN CR 120 GM JAR EXT SCH ×4 (09:42→20:31)
[2021-12-31] MEDS: PANTOprazole 40 MG in SYRINGE 0 ML IV SCH ×2 (12:54→20:31)
--- NOTE | 2021-12-31 15:52 | Hospitalist Progress Note ---
Date of Service December 31, 2021 Assessment & Plan (1) Generalized pain: Plan: Donta Trevizo) is a 20yo female with sickle cell disease and chronic pain who presented to the ER with a three-day history of worsening generalized pain, nausea, and intermittent dizziness, which she describes as similar to prior acute sickle episodes. Sickle cell acute pain crisis CXR without acute abnormality, oxygen saturation adequate - no evidence of acute chest syndrome Admission labs notable for anemia (8.6), hyperbilirubinemia (2.0); hsTroponin not elevated Patient occasionally requires transfusions during acute pain episodes; type/screen ordered Etiology likely multifactorial: sickle cell disease acute pain crisis +/- opioid hyperalgesia with viral URI Pain control regimen: APAP 1000mg PO q8h scheduled Oxycodone 5 mg changed to 3 times daily scheduled, continue Dilaudid - Switched to PERSONNEL RESEARCH PSYCHOLOGIST 12/26 Continue home fentanyl patch Holding off on NSAIDs given risk of renal injury in setting of hypotension and sickle cell crisis Continue IVF for intravascular volume expansion- Half-normal saline at 80 mL/h Continue home hydroxyurea, folate - Hgb stable at 8.1 Zofran PRN Incentive spirometry Trend daily CBC Cold-like symptoms POC flu test ordered and was negative, COVID test negative on admission, this is likely representing an acute viral upper respiratory illness. Incentive spirometry Mucinex and Flonase ordered Hypotension Patient with intermittent hypotension which is not uncommon for her during sickle cell acute pain episodes, in part due to poor PO intake Continue 1/2 NSS @ 80mL/hr Encourage PO intake, continue to monitor, additional IVF boluses as needed - Meclizine Discontinued to increase Benadryl usage - BP stable in 90s-100s/50s-60s Hyperbilirubinemia Total bilirubin on admission 2.0, LFTs otherwise wnl; patient has a long history of hyperbilirubinemia during acute pain episodes Bilirubin downtrending, currently at 1.2 Abdominal exam benign Suspect elevated bilirubin is secondary to increased RBC turnover d/t sickle crisis Trend daily CMP + itching - could be secondary to hyperbilirubinemia - Benadryl 50 mg iv 4 times daily as needed GERD: continue pantoprazole 40mg IV bid Constipation: continue home miralax, added dulcolax daily. Mag citrate out of stock FEN: regular diet, 1/2 NSS at 80 cc/hr Code status: full code VTE ppx: SCDs PT/OT: ordered Dispo: medical/surgical (2) Elevated bilirubin: (3) Elevated troponin: (4) Nausea: (5) Sickle cell crisis: Admission and Anticipated Discharge Date Admission Date: December 21, 2021 Supervising Physician Co-Signing Physician Notes Resident Physician Supervision Note: I independently interviewed and examined the patient and verified the amaro history and physical, reviewed labs and image studies and agree with resident findings and care plan. Subjective Patient seen at bedside this morning. No acute vents reported overnight. Overall does not seem to be doing too well she seems like she is in little bit more pain than she was yesterday, however, some of her cold-like symptoms have improved such as her itchiness in her eyes, however, they are still swollen. Patient not ready to be discharged home at this time. No other complaints today. Review of Systems Review of Systems: All systems reviewed & are unremarkable except as noted in HPI & below Physical Exam Constitutional: WD/WN, vitals as above Eyes: PERRL, conjunctivae normal, anicteric sclerae ENMT: external ear and nose normal, oropharynx normal Neck: trachea midline, no thyromegaly Respiratory: normal respiratory effort, lungs clear to auscultation Cardiovascular: RRR, no murmur, no edema Gastrointestinal (Abdomen): Inspection/Auscultation: abdomen normal to inspection Percussion/Palpation: abdomen soft; abdomen nontender Skin: no rashes, warm and dry Psychiatric: A+Ox3, euthymic affect Results & Data Results & Data ([facility]) Vital Signs (Past 12 Hours) Vital Signs Temp Pulse Resp BP Pulse Ox O2 Del Method 12/31/21 11:53 36.7 C 76 18 109/74 99 Room Air 12/31/21 08:30 37.1 C 98 H 18 96/59 L 98 Room Air
[2021-12-31] MEDS: SODIUM CHLORIDE 0.9% 1000ML 1,000 ML IV SCH (16:28)
[2021-12-31] MEDS: FOLIC ACID 1 MG TAB PO SCH (20:30)
[2022-01-01] MEDS: CHECK fentaNYL PATCH PLACEMENT SCH ×3 (00:11→15:15)
[2022-01-01] MEDS: ACETAMINOPHEN 500 MG TAB PO SCH ×3 (00:11→17:42)
[2022-01-01] MEDS: diphenhydrAMINE 50 MG/ML VIAL IV PRN ×4 (00:58→19:53)
[2022-01-01 06:04] LABS: Hematocrit (blood only) 21.5 % (34.1-44.9); Hemoglobin 8.1 g/dl (12.0-16.0); Mean Corpuscular Hemoglobin 40.3 pg (25.0-34.0); Mean Corpuscular Hgb Conc 37.7 g/dL (32.0-36.0); Mean Platelet Volume 9.7 fL (9.4-12.3); Nucleated RBC # (auto) 0.21 K/uL (0-0); Nucleated RBC % (auto) 4.4 %; Platelet Count 414 K/uL (130-400); RDW Standard Deviation 71.8 fL (36.4-46.3); Red Blood Count 2.01 M/uL (3.93-5.22); White Blood Count 4.75 K/ul (4.8-10.8)
[2022-01-01] MEDS: SODIUM CHLORIDE 0.45 % 1,000 ML IV SCH ×2 (06:06→19:14)
[2022-01-01 06:36] LABS: Alanine Aminotransferase 18 U/L (7-52); Albumin Globulin Ratio 1.3 (0.9-2); Alkaline Phosphatase 54 U/L (34-104); Anion Gap 4 (3-11); Aspartate Aminotransferase 29 U/L (13-39); BUN Creatinine Ratio 10.6 (10-20); Bilirubin,Total 1.1 mg/dl (0.2-1.0); Blood Urea Nitrogen 5 mg/dl (6-23); Carbon Dioxide 27 mmol/L (21-32); Chloride 104 mmol/L (98-107); Creatinine Clr Calc Pharmacy 174.3 ml/min; Est GFR (African American) > 150.0 ml/min; Est GFR (Non-African American) 139.2 ml/min; Globulin 3.2 gm/dl (2.5-4.0); Glucose 71 mg/dl (70-99(Fasting)); Potassium 3.6 mmol/L (3.5-5.1); Sodium 135 mmol/L (136-145); Total Protein 7.2 gm/dl (6.0-8.3)
[2022-01-01] MEDS: FAMOTIDINE 20 MG TAB PO SCH ×2 (09:03→21:33)
[2022-01-01] MEDS: PANTOprazole 40 MG in SYRINGE 0 ML IV SCH ×2 (09:03→21:28)
[2022-01-01] MEDS: guaiFENesin 600 MG TABCR PO SCH ×2 (09:03→21:29)
[2022-01-01] MEDS: POLYETHYLENE (MIRALAX) 17 GM PACK PO SCH ×2 (09:03→21:30)
[2022-01-01] MEDS: oxyCODONE HCL IR 5 MG TAB (IMMEDIATE RELEASE) PO SCH ×3 (09:03→21:30)
[2022-01-01] MEDS: ALUMINUM/MAGNESIUM/SIMETH (MAALOX MAX) 30 ML UDC PO SCH ×4 (09:04→21:28)
[2022-01-01] MEDS: FLUTICASONE PROPIONATE NA SPR 16 GM BTL SCH (09:04)
[2022-01-01] MEDS: bisacodyL 5 MG TABEC PO SCH ×2 (09:04→21:28)
[2022-01-01] MEDS: HYDROXYUREA 500 MG CAP PO SCH ×2 (09:04→21:29)
[2022-01-01] MEDS: ARTIFICIAL TEARS OP OINT 3.5 GM TUBE OP SCH ×4 (09:05→21:28)
[2022-01-01] MEDS: EUCERIN CR 120 GM JAR EXT SCH ×4 (09:06→21:28)
--- NOTE | 2022-01-01 09:41 | Hospitalist Progress Note ---
Date of Service January 01, 2022 Assessment & Plan (1) Generalized pain: Plan: Donta Trevizo) is a 20yo female with sickle cell disease and chronic pain who presented to the ER with a three-day history of worsening generalized pain, nausea, and intermittent dizziness, which she describes as similar to prior acute sickle episodes. Sickle cell acute pain crisis CXR without acute abnormality, oxygen saturation adequate - no evidence of acute chest syndrome Admission labs notable for anemia (8.6), hyperbilirubinemia (2.0); hsTroponin not elevated Patient occasionally requires transfusions during acute pain episodes; type/screen ordered Etiology likely multifactorial: sickle cell disease acute pain crisis +/- opioid hyperalgesia with viral URI Pain control regimen: APAP 1000mg PO q8h scheduled Oxycodone 5 mg changed to 3 times daily scheduled, continue Dilaudid - Switched to FLORIST HELPER 12/26 Continue home fentanyl patch Holding off on NSAIDs given risk of renal injury in setting of hypotension and sickle cell crisis Continue IVF for intravascular volume expansion- Half-normal saline at 80 mL/h Continue home hydroxyurea, folate - Hgb stable at 8.1 Zofran PRN Incentive spirometry Trend daily CBC Cold-like symptoms POC flu test ordered and was negative, COVID test negative on admission, this is likely representing an acute viral upper respiratory illness. Incentive spirometry Mucinex and Flonase ordered Hypotension Patient with intermittent hypotension which is not uncommon for her during sickle cell acute pain episodes, in part due to poor PO intake Continue 1/2 NSS @ 80mL/hr Encourage PO intake, continue to monitor, additional IVF boluses as needed - Meclizine Discontinued to increase Benadryl usage - BP stable in 90s-100s/50s-60s Hyperbilirubinemia Total bilirubin on admission 2.0, LFTs otherwise wnl; patient has a long history of hyperbilirubinemia during acute pain episodes Bilirubin downtrending, currently at 1.1 Abdominal exam benign Suspect elevated bilirubin is secondary to increased RBC turnover d/t sickle crisis Trend daily CMP + itching, Benadryl 50 mg iv 4 times daily as needed GERD: continue pantoprazole 40mg IV bid Constipation: continue home miralax, added dulcolax daily. Mag citrate out of stock FEN: regular diet, 1/2 NSS at 80 cc/hr Code status: full code VTE ppx: SCDs PT/OT: ordered Dispo: medical/surgical (2) Elevated bilirubin: (3) Elevated troponin: (4) Nausea: (5) Sickle cell crisis: Admission and Anticipated Discharge Date Admission Date: December 21, 2021 Subjective Patient seen at bedside this morning. No acute events reported overnight. Patient continues to utilize FLORIST HELPER Dilaudid with fentanyl patch changed yesterday. Pain is overall about the same. Cold symptoms might be slightly better but overall still not feeling well. No other complaints at this time. Review of Systems Review of Systems: All systems reviewed & are unremarkable except as noted in HPI & below Physical Exam Constitutional: WD/WN, vitals as above Eyes: PERRL, conjunctivae normal, anicteric sclerae ENMT: external ear and nose normal, oropharynx normal Neck: trachea midline, no thyromegaly Respiratory: normal respiratory effort, lungs clear to auscultation Cardiovascular: RRR, no murmur, no edema Gastrointestinal (Abdomen): Inspection/Auscultation: abdomen normal to inspection Percussion/Palpation: abdomen soft; abdomen nontender Skin: no rashes, warm and dry Psychiatric: A+Ox3, euthymic affect Results & Data Results & Data ([facility]) Vital Signs (Past 12 Hours) Vital Signs Temp Pulse Pulse Resp BP Pulse Ox O2 Del Method 01/01/22 07:25 36.4 C L 61 18 93/59 L 99 Room Air 01/01/22 03:31 36.6 C 91 H 16 97/63 L 95 Room Air 12/31/21 21:51 36.7 C 70 16 88/48 L 98 Room Air
[2022-01-01] MEDS: AZELASTINE HCL 0.1% NASAL 200 SPRAYS/27,400 MCG BTL SCH ×2 (13:43→21:28)
[2022-01-01] MEDS: HYDROmorphone PCA 30 MG/30 ML IV PRN (15:12)
[2022-01-01] MEDS: SODIUM CHLORIDE 0.9% 1000ML 1,000 ML IV SCH (17:43)
[2022-01-01] MEDS: FOLIC ACID 1 MG TAB PO SCH (21:29)
[2022-01-02] MEDS: CHECK fentaNYL PATCH PLACEMENT SCH ×3 (00:22→17:02)
[2022-01-02] MEDS: ACETAMINOPHEN 500 MG TAB PO SCH ×3 (00:48→17:17)
[2022-01-02] MEDS: diphenhydrAMINE 50 MG/ML VIAL IV PRN ×4 (01:42→21:07)
[2022-01-02 06:31] LABS: Hematocrit (blood only) 21.8 % (34.1-44.9); Hemoglobin 8.2 g/dl (12.0-16.0); Mean Corpuscular Hemoglobin 40.2 pg (25.0-34.0); Mean Corpuscular Hgb Conc 37.6 g/dL (32.0-36.0); Mean Corpuscular Volume 106.9 fL (80.0-100.0); Mean Platelet Volume 9.7 fL (9.4-12.3); Nucleated RBC % (auto) 3.9 %; Platelet Count 460 K/uL (130-400); RDW Coefficient of Variation 18.1 % (11.5-14.5); RDW Standard Deviation 71.1 fL (36.4-46.3); Red Blood Count 2.04 M/uL (3.93-5.22); White Blood Count 5.19 K/ul (4.8-10.8)
[2022-01-02 06:56] LABS: Alanine Aminotransferase 21 U/L (7-52); Albumin Globulin Ratio 1.2 (0.9-2); Alkaline Phosphatase 56 U/L (34-104); Anion Gap 5 (3-11); Aspartate Aminotransferase 30 U/L (13-39); BUN Creatinine Ratio 11.8 (10-20); Bilirubin,Total 1.1 mg/dl (0.2-1.0); Blood Urea Nitrogen 6 mg/dl (6-23); Calcium 9.2 mg/dl (8.5-10.1); Carbon Dioxide 29 mmol/L (21-32); Chloride 103 mmol/L (98-107); Creatinine Clr Calc Pharmacy 160.6 ml/min; Est GFR (African American) > 150.0 ml/min; Est GFR (Non-African American) 135.5 ml/min; Globulin 3.4 gm/dl (2.5-4.0); Glucose 88 mg/dl (70-99(Fasting)); Potassium 3.8 mmol/L (3.5-5.1); Sodium 137 mmol/L (136-145); Total Protein 7.4 gm/dl (6.0-8.3)
[2022-01-02] MEDS: SODIUM CHLORIDE 0.45 % 1,000 ML IV SCH ×2 (08:01→20:39)
[2022-01-02] MEDS: guaiFENesin 600 MG TABCR PO SCH ×2 (08:02→21:06)
[2022-01-02] MEDS: HYDROXYUREA 500 MG CAP PO SCH ×2 (08:02→21:05)
[2022-01-02] MEDS: PANTOprazole 40 MG in SYRINGE 0 ML IV SCH ×2 (08:02→21:05)
[2022-01-02] MEDS: AZELASTINE HCL 0.1% NASAL 200 SPRAYS/27,400 MCG BTL SCH ×2 (08:03→21:06)
[2022-01-02] MEDS: oxyCODONE HCL IR 5 MG TAB (IMMEDIATE RELEASE) PO SCH ×3 (08:03→21:06)
[2022-01-02] MEDS: POLYETHYLENE (MIRALAX) 17 GM PACK PO SCH ×2 (08:03→21:12)
[2022-01-02] MEDS: EUCERIN CR 120 GM JAR EXT SCH ×4 (08:05→21:10)
[2022-01-02] MEDS: ARTIFICIAL TEARS OP OINT 3.5 GM TUBE OP SCH ×4 (08:05→21:10)
[2022-01-02] MEDS: FLUTICASONE PROPIONATE NA SPR 16 GM BTL SCH (08:05)
[2022-01-02] MEDS: bisacodyL 5 MG TABEC PO SCH ×2 (08:09→21:10)
[2022-01-02] MEDS: ALUMINUM/MAGNESIUM/SIMETH (MAALOX MAX) 30 ML UDC PO SCH ×4 (08:09→21:10)
[2022-01-02] MEDS: FAMOTIDINE 20 MG TAB PO SCH ×2 (08:52→21:14)
--- NOTE | 2022-01-02 15:26 | Hospitalist Progress Note ---
Date of Service January 02, 2022 Assessment & Plan (1) Generalized pain: Plan: Donta Trevizo) is a 20yo female with sickle cell disease and chronic pain who presented to the ER with a three-day history of worsening generalized pain, nausea, and intermittent dizziness, which she describes as similar to prior acute sickle episodes. Sickle cell acute pain crisis CXR without acute abnormality, oxygen saturation adequate - no evidence of acute chest syndrome Admission labs notable for anemia (8.6), hyperbilirubinemia (2.0); hsTroponin not elevated Patient occasionally requires transfusions during acute pain episodes; type/screen ordered Etiology likely multifactorial: sickle cell disease acute pain crisis +/- opioid hyperalgesia with viral URI Pain control regimen: APAP 1000mg PO q8h scheduled Oxycodone 5 mg changed to 3 times daily scheduled, continue Dilaudid - Switched to CHUCKING MACHINE SET UP OPERATOR TOOL 12/26 Continue home fentanyl patch Holding off on NSAIDs given risk of renal injury in setting of hypotension and sickle cell crisis Continue IVF for intravascular volume expansion- Half-normal saline at 80 mL/h Continue home hydroxyurea, folate - Hgb stable at 8.2 Zofran PRN Incentive spirometry Trend daily CBC Cold-like symptoms POC flu test ordered and was negative, COVID test negative on admission, this is likely representing an acute viral upper respiratory illness. No indication for antibiotics at this time. Incentive spirometry Mucinex and Flonase ordered Considered utilization of systemic steroid, however, in theory this can induce acute chest syndrome, will defer for now Hypotension Patient with intermittent hypotension which is not uncommon for her during sickle cell acute pain episodes, in part due to poor PO intake Continue 1/2 NSS @ 80mL/hr Encourage PO intake, continue to monitor, additional IVF boluses as needed - BP stable in 90s-100s/50s-60s Hyperbilirubinemia Total bilirubin on admission 2.0, LFTs otherwise wnl; patient has a long history of hyperbilirubinemia during acute pain episodes Bilirubin downtrending, currently at 1.1 Abdominal exam benign Suspect elevated bilirubin is secondary to increased RBC turnover d/t sickle crisis Trend daily CMP + itching, Benadryl 50 mg iv 4 times daily as needed GERD: continue pantoprazole 40mg IV bid Constipation: continue home miralax, added dulcolax daily. Mag citrate out of stock FEN: regular diet, 1/2 NSS at 80 cc/hr Code status: full code VTE ppx: SCDs PT/OT: ordered Dispo: medical/surgical (2) Elevated bilirubin: (3) Elevated troponin: (4) Nausea: (5) Sickle cell crisis: Admission and Anticipated Discharge Date Admission Date: December 21, 2021 Supervising Physician Co-Signing Physician Notes Resident Physician Supervision Note: I independently interviewed and examined the patient and verified the amaro history and physical, reviewed labs and image studies and agree with resident findings and care plan. Subjective Patient seen at bedside this morning. No acute events reported overnight. Reports that the majority of her symptoms are about the same. The patient is laughing and pleasant today which is an improvement from previous days. Continues to use the CHUCKING MACHINE SET UP OPERATOR TOOL pump almost every hour. Complaining of a hoarse voice at this time but without cough or congestion. No other complaints at this time Review of Systems Review of Systems: All systems reviewed & are unremarkable except as noted in HPI & below Physical Exam Constitutional: WD/WN, vitals as above Eyes: + anicteric sclerae ENMT: Throat: + postnasal drainage Neck: normal visual inspection Respiratory: normal respiratory effort; no respiratory distress Cardiovascular: RRR, no murmur, no edema Gastrointestinal (Abdomen): Inspection/Auscultation: abdomen normal to inspection Percussion/Palpation: abdomen soft; abdomen nontender Musculoskeletal: Head/Neck/Chest: normocephalic and head atraumatic Skin: no rashes, warm and dry Neurologic: moves all extremities Psychiatric: A+Ox3, euthymic affect Results & Data Results & Data ([facility]) Vital Signs (Past 12 Hours) Vital Signs Temp Pulse Pulse Resp BP Pulse Ox O2 Del Method 01/02/22 15:00 36.4 C L 72 18 98/60 L 96 Room Air 01/02/22 15:13 36.7 C 83 16 99/60 L 97 Room Air 01/02/22 08:00 Room Air 01/02/22 07:36 37.1 C 65 16 99/64 L 95 Room Air
[2022-01-02] MEDS: SODIUM CHLORIDE 0.9% 1000ML 1,000 ML IV SCH (17:03)
--- NOTE | 2022-01-02 17:17 | Communication Note ---
Date of Service: January 02, 2022 Received a [place]bin text from nursing stating that patient had swallowed a fishbone. When evaluated the patient at bedside. Patient is experiencing some discomfort and feels that it is stuck. She is not having any chest pain, shortness of breath, or drooling. At this time recommended conservative management and will have her attempt to flush it utilizing oral hydration. No limitation on her oral medications or p.o. intake at this time. If her symptoms do not improve or if she has sudden onset of shortness of breath or chest pain, will likely need to evaluate further but statistically speaking the majority of fishbones pass through the GI tract without any intervention.
[2022-01-02] MEDS: FOLIC ACID 1 MG TAB PO SCH (21:11)
[2022-01-02] MEDS: HYDROmorphone PCA 30 MG/30 ML IV PRN (22:43)
[2022-01-03] MEDS: ACETAMINOPHEN 500 MG TAB PO SCH ×3 (00:32→17:15)
[2022-01-03] MEDS: CHECK fentaNYL PATCH PLACEMENT SCH ×3 (00:33→17:10)
[2022-01-03] MEDS: diphenhydrAMINE 50 MG/ML VIAL IV PRN ×4 (03:28→22:58)
[2022-01-03] MEDS: fentaNYL 12 MCG/HR TDSY TD SCH (06:05)
[2022-01-03 08:22] LABS: Alanine Aminotransferase 22 U/L (7-52); Albumin Globulin Ratio 1.2 (0.9-2); Albumin Level 3.9 gm/dl (3.4-5.0); Alkaline Phosphatase 61 U/L (34-104); Anion Gap 4 (3-11); Aspartate Aminotransferase 31 U/L (13-39); BUN Creatinine Ratio 15.2 (10-20); Bilirubin,Total 0.9 mg/dl (0.2-1.0); Blood Urea Nitrogen 7 mg/dl (6-23); Carbon Dioxide 28 mmol/L (21-32); Chloride 105 mmol/L (98-107); Creatinine Clr Calc Pharmacy 178.1 ml/min; Est GFR (African American) > 150.0 ml/min; Est GFR (Non-African American) 140.2 ml/min; Globulin 3.3 gm/dl (2.5-4.0); Glucose 83 mg/dl (70-99(Fasting)); Sodium 137 mmol/L (136-145); Total Protein 7.2 gm/dl (6.0-8.3)
[2022-01-03 08:33] LABS: Basophils # (auto) 0.01 K/uL (0-0.2); Basophils % (auto) 0.2 %; Eosinophils # (auto) 0.11 K/uL (0-0.50); Eosinophils % (auto) 2.1 %; Immature Granulocytes # (auto) 0.02 K/uL (0.00-0.02); Immature Granulocytes % (auto) 0.4 %; Lymphocytes # (auto) 1.93 K/uL (1.2-3.4); Lymphocytes % (auto) 37.2 %; Monocytes # (auto) 0.27 K/uL (0.24-0.82); Monocytes % (auto) 5.2 %; Neutrophils # (auto) 2.85 K/uL (1.4-6.5); Neutrophils % (auto) 54.9 %
[2022-01-03 08:34] LABS: Hemoglobin 8.1 g/dl (12.0-16.0); Mean Corpuscular Hemoglobin 41.1 pg (25.0-34.0); Mean Corpuscular Hgb Conc 38.6 g/dL (32.0-36.0); Mean Corpuscular Volume 106.6 fL (80.0-100.0); Mean Platelet Volume 9.3 fL (9.4-12.3); Nucleated RBC # (auto) 0.17 K/uL (0-0); Nucleated RBC % (auto) 3.2 %; Platelet Count 490 K/uL (130-400); RDW Coefficient of Variation 18.1 % (11.5-14.5); RDW Standard Deviation 70.9 fL (36.4-46.3); Red Blood Count 1.97 M/uL (3.93-5.22); White Blood Count 5.26 K/ul (4.8-10.8)
[2022-01-03] MEDS: SODIUM CHLORIDE 0.45 % 1,000 ML IV SCH ×2 (09:36→22:58)
[2022-01-03] MEDS: AZELASTINE HCL 0.1% NASAL 200 SPRAYS/27,400 MCG BTL SCH ×2 (09:41→21:06)
[2022-01-03] MEDS: ARTIFICIAL TEARS OP OINT 3.5 GM TUBE OP SCH ×4 (09:43→21:06)
[2022-01-03] MEDS: guaiFENesin 600 MG TABCR PO SCH ×2 (09:44→21:06)
[2022-01-03] MEDS: FLUTICASONE PROPIONATE NA SPR 16 GM BTL SCH (09:44)
[2022-01-03] MEDS: HYDROXYUREA 500 MG CAP PO SCH ×2 (09:45→21:06)
[2022-01-03] MEDS: oxyCODONE HCL IR 5 MG TAB (IMMEDIATE RELEASE) PO SCH ×3 (09:45→21:06)
[2022-01-03] MEDS: PANTOprazole 40 MG in SYRINGE 0 ML IV SCH (09:46)
[2022-01-03] MEDS: POLYETHYLENE (MIRALAX) 17 GM PACK PO SCH ×2 (09:46→21:07)
[2022-01-03] MEDS: ALUMINUM/MAGNESIUM/SIMETH (MAALOX MAX) 30 ML UDC PO SCH ×4 (09:50→21:13)
[2022-01-03] MEDS: EUCERIN CR 120 GM JAR EXT SCH ×4 (09:50→21:07)
[2022-01-03] MEDS: bisacodyL 5 MG TABEC PO SCH ×2 (09:51→21:06)
--- NOTE | 2022-01-03 10:45 | Hospitalist Progress Note ---
Date of Service January 03, 2022 Assessment & Plan (1) Generalized pain: Plan: Donta Trevizo) is a 20yo female with sickle cell disease and chronic pain who presented to the ER with a three-day history of worsening generalized pain, nausea, and intermittent dizziness, which she describes as similar to prior acute sickle episodes. Sickle cell acute pain crisis CXR without acute abnormality, oxygen saturation adequate - no evidence of acute chest syndrome Admission labs notable for anemia (8.6), hyperbilirubinemia (2.0); hsTroponin not elevated Patient occasionally requires transfusions during acute pain episodes; type/screen ordered Etiology likely multifactorial: sickle cell disease acute pain crisis +/- opioid hyperalgesia with viral URI Pain control regimen: APAP 1000mg PO q8h scheduled Oxycodone 5 mg changed to 3 times daily scheduled, continue Dilaudid - Switched to COUNTY MANAGER 12/26 Continue home fentanyl patch Holding off on NSAIDs given risk of renal injury in setting of hypotension and sickle cell crisis Continue IVF for intravascular volume expansion- Half-normal saline at 80 mL/h Continue home hydroxyurea, folate - Hgb stable at 8.1 Zofran PRN Incentive spirometry Trend daily CBC -Overall seems to be clinically improving, hopefully this is a turn for her sickle cell crisis Foreign body ingestion -Ingestion of salmon fishbone on 01/02 -No clinical symptoms of perforation at this time: No chest pain, shortness of breath, drooling -Continue clinical observation for now, if patient were to worsen, consider CT for evaluation with sequential endoscopy if needed Cold-like symptoms POC flu test ordered and was negative, COVID test negative on admission, this is likely representing an acute viral upper respiratory illness. No indication for antibiotics at this time. Incentive spirometry Mucinex and Flonase ordered Considered utilization of systemic steroid, however, in theory this can induce acute chest syndrome, will defer for now Hypotension Patient with intermittent hypotension which is not uncommon for her during sickle cell acute pain episodes, in part due to poor PO intake Continue 1/2 NSS @ 80mL/hr Encourage PO intake, continue to monitor, additional IVF boluses as needed - Meclizine Discontinued to increase Benadryl usage - BP stable in 90s-100s/50s-60s Hyperbilirubinemia Total bilirubin on admission 2.0, LFTs otherwise wnl; patient has a long history of hyperbilirubinemia during acute pain episodes Bilirubin downtrending, currently at 0.9 Abdominal exam benign Suspect elevated bilirubin is secondary to increased RBC turnover d/t sickle crisis Trend daily CMP + itching, Benadryl 50 mg iv 4 times daily as needed GERD: continue pantoprazole 40mg IV bid Constipation: continue home miralax, added dulcolax daily. Mag citrate out of stock FEN: regular diet, 1/2 NSS at 80 cc/hr Code status: full code VTE ppx: SCDs PT/OT: ordered Dispo: medical/surgical (2) Elevated bilirubin: (3) Elevated troponin: (4) Nausea: (5) Sickle cell crisis: (6) Observation following foreign body ingestion: Admission and Anticipated Discharge Date Admission Date: December 21, 2021 Supervising Physician Co-Signing Physician Notes Resident Physician Supervision Note: I independently interviewed and examined the patient and verified the amaro history and physical, reviewed labs and image studies and agree with resident findings and care plan. Subjective Patient seen at bedside this morning. No acute events reported overnight. As mentioned previously, patient did swallow a fishbone last night. She reports no chest pain or shortness of breath. Does have some throat discomfort that is still agitated but has been able to eat and drink without difficulty. Otherwise pain overall seems to be improved today compared to yesterday and patient is in very good mood about it. She is going to attempt to move her COUNTY MANAGER from every hour to every hour and a half to see if there is good pain control. Otherwise overall doing well and has no other complaints at this time. Review of Systems Review of Systems: All systems reviewed & are unremarkable except as noted in HPI & below Physical Exam Constitutional: WD/WN, vitals as above Eyes: + anicteric sclerae ENMT: Throat: + postnasal drainage Neck: normal visual inspection Respiratory: normal respiratory effort, lungs clear to auscultation Cardiovascular: RRR, no murmur, no edema Gastrointestinal (Abdomen): Inspection/Auscultation: abdomen normal to inspection Musculoskeletal: Head/Neck/Chest: normocephalic and head atraumatic Skin: no rashes, warm and dry Neurologic: moves all extremities Psychiatric: A+Ox3, euthymic affect Results & Data Results & Data ([facility]) Vital Signs (Past 12 Hours) Vital Signs Temp Pulse Resp BP BP Pulse Ox O2 Del Method 01/03/22 07:26 36.7 C 67 16 96/61 L 98 Room Air 01/03/22 03:17 36.4 C L 81 16 102/53 L 98 Room Air
[2022-01-03] MEDS: FAMOTIDINE 20 MG TAB PO SCH ×2 (11:35→21:13)
[2022-01-03 13:14] LABS: Blast # (manual) 0.05 K/uL (0-0); Blast Cells % (manual) 1 %; Eosinophils # (manual) 0.11 K/uL (0-0.50); Eosinophils % (manual) 2 %; Lymphocytes # (manual) 2.21 K/uL (1.2-3.4); Lymphocytes % (manual) 42 %; Monocytes # (manual) 0.11 K/uL (0.24-0.82); Monocytes % (manual) 2 %; Neutrophils # (manual) 2.84 K/uL (1.4-6.5); Neutrophils % (manual) 54 %; Polychromasia 1+; Sickle Cells 1+; Target Cells 2+
[2022-01-03] MEDS: SODIUM CHLORIDE 0.9% 1000ML 1,000 ML IV SCH (17:15)
[2022-01-03] MEDS: FOLIC ACID 1 MG TAB PO SCH (21:06)
[2022-01-04] MEDS: ZOLPIDEM TARTRATE 5 MG TAB PO PRN (00:12)
[2022-01-04] MEDS: CHECK fentaNYL PATCH PLACEMENT SCH ×3 (00:13→16:14)
[2022-01-04] MEDS: ACETAMINOPHEN 500 MG TAB PO SCH ×3 (00:13→19:09)
[2022-01-04] MEDS: diphenhydrAMINE 50 MG/ML VIAL IV PRN ×3 (06:43→19:28)
[2022-01-04 07:40] LABS: Hematocrit (blood only) 22.9 % (34.1-44.9); Hemoglobin 8.8 g/dl (12.0-16.0); Mean Corpuscular Hemoglobin 41.7 pg (25.0-34.0); Mean Corpuscular Hgb Conc 38.4 g/dL (32.0-36.0); Mean Corpuscular Volume 108.5 fL (80.0-100.0); Mean Platelet Volume 9.9 fL (9.4-12.3); Nucleated RBC # (auto) 0.15 K/uL (0-0); Nucleated RBC % (auto) 2.4 %; Platelet Count 522 K/uL (130-400); RDW Coefficient of Variation 17.9 % (11.5-14.5); RDW Standard Deviation 71.4 fL (36.4-46.3); Red Blood Count 2.11 M/uL (3.93-5.22); White Blood Count 6.15 K/ul (4.8-10.8)
[2022-01-04 07:46] LABS: Alanine Aminotransferase 23 U/L (7-52); Albumin Globulin Ratio 1.2 (0.9-2); Albumin Level 4.2 gm/dl (3.4-5.0); Alkaline Phosphatase 60 U/L (34-104); Anion Gap 4 (3-11); Aspartate Aminotransferase 32 U/L (13-39); BUN Creatinine Ratio 12.2 (10-20); Bilirubin,Total 1.1 mg/dl (0.2-1.0); Blood Urea Nitrogen 6 mg/dl (6-23); Calcium 9.2 mg/dl (8.5-10.1); Carbon Dioxide 29 mmol/L (21-32); Chloride 103 mmol/L (98-107); Creatinine Clr Calc Pharmacy 167.2 ml/min; Est GFR (African American) > 150.0 ml/min; Est GFR (Non-African American) 137.3 ml/min; Globulin 3.4 gm/dl (2.5-4.0); Glucose 88 mg/dl (70-99(Fasting)); Potassium 3.7 mmol/L (3.5-5.1); Sodium 136 mmol/L (136-145); Total Protein 7.6 gm/dl (6.0-8.3)
[2022-01-04] MEDS: ARTIFICIAL TEARS OP OINT 3.5 GM TUBE OP SCH ×4 (09:44→21:35)
[2022-01-04] MEDS: EUCERIN CR 120 GM JAR EXT SCH ×4 (09:45→21:35)
[2022-01-04] MEDS: AZELASTINE HCL 0.1% NASAL 200 SPRAYS/27,400 MCG BTL SCH ×2 (09:45→21:35)
[2022-01-04] MEDS: HYDROXYUREA 500 MG CAP PO SCH ×2 (09:46→21:36)
[2022-01-04] MEDS: FLUTICASONE PROPIONATE NA SPR 16 GM BTL SCH (09:46)
[2022-01-04] MEDS: guaiFENesin 600 MG TABCR PO SCH ×2 (09:46→21:36)
[2022-01-04] MEDS: POLYETHYLENE (MIRALAX) 17 GM PACK PO SCH ×2 (09:47→21:36)
[2022-01-04] MEDS: bisacodyL 5 MG TABEC PO SCH ×2 (09:50→21:34)
[2022-01-04] MEDS: oxyCODONE HCL IR 5 MG TAB (IMMEDIATE RELEASE) PO SCH ×3 (09:50→21:34)
[2022-01-04] MEDS: ALUMINUM/MAGNESIUM/SIMETH (MAALOX MAX) 30 ML UDC PO SCH ×4 (09:56→21:34)
[2022-01-04] MEDS: SODIUM CHLORIDE 0.45 % 1,000 ML IV SCH (12:05)
[2022-01-04] MEDS: FAMOTIDINE 20 MG TAB PO SCH ×2 (14:32→21:35)
--- NOTE | 2022-01-04 15:18 | Hospitalist Progress Note ---
Date of Service January 04, 2022 Assessment & Plan (1) Generalized pain: Plan: Donta Trevizo) is a 20yo female with sickle cell disease and chronic pain who presented to the ER with a three-day history of worsening generalized pain, nausea, and intermittent dizziness, which she describes as similar to prior acute sickle episodes. Sickle cell acute pain crisis CXR without acute abnormality, oxygen saturation adequate - no evidence of acute chest syndrome Admission labs notable for anemia (8.6), hyperbilirubinemia (2.0); hsTroponin not elevated Patient occasionally requires transfusions during acute pain episodes; type/screen ordered Etiology likely multifactorial: sickle cell disease acute pain crisis +/- opioid hyperalgesia with viral URI Pain control regimen: APAP 1000mg PO q8h scheduled Oxycodone 5 mg changed to 3 times daily scheduled, continue Dilaudid - Switched to CHILD NURSE 12/26 Continue home fentanyl patch Holding off on NSAIDs given risk of renal injury in setting of hypotension and sickle cell crisis Continue IVF for intravascular volume expansion- Half-normal saline at 80 mL/h Continue home hydroxyurea, folate - Hgb improved to 8.8 Incentive spirometry Trend daily CBC Foreign body ingestion -Ingestion of salmon fishbone on 01/02 -No clinical symptoms of perforation at this time: No chest pain, shortness of breath, drooling -Continue clinical observation for now, if patient were to worsen, consider CT for evaluation with sequential endoscopy if needed Cold-like symptoms POC flu test ordered and was negative, COVID test negative on admission, this is likely representing an acute viral upper respiratory illness. No indication for antibiotics at this time. Mucinex and Flonase ordered Astelin added due to persistent pressure Dizziness Patient with intermittent hypotension which is not uncommon for her during sickle cell acute pain episodes, in part due to poor PO intake Continue 1/2 NSS @ 80mL/hr ? sec to narcotics; sinus pressure. follow. Hyperbilirubinemia sec to sickle cell crisis. resolved. Sleep difficulties -Continue zolpidem GERD: continue pantoprazole 40mg IV bid Constipation: continue home miralax, added dulcolax daily. Mag citrate out of stock FEN: regular diet, 1/2 NSS at 80 cc/hr Code status: full code VTE ppx: SCDs PT/OT: ordered Dispo: medical/surgical (2) Elevated bilirubin: (3) Elevated troponin: (4) Nausea: (5) Sickle cell crisis: (6) Observation following foreign body ingestion: Admission and Anticipated Discharge Date Admission Date: December 21, 2021 Supervising Physician Co-Signing Physician Notes Resident Physician Supervision Note: I independently interviewed and examined the patient and verified the amaro history and physical, reviewed labs and image studies and agree with resident findings and care plan. Subjective Patient seen at bedside this morning. No acute events reported overnight. Seems to have a step back from yesterday and has an increase in her depression and pain. She did her best dose to try and go back on the CHILD NURSE pump, however, did not seem to be successful and required being back on it every hour. Seems to have some improved sleep with zolpidem. Otherwise no other complaints at this time. Review of Systems Review of Systems: All systems reviewed & are unremarkable except as noted in HPI & below Physical Exam Constitutional: WD/WN, vitals as above Eyes: PERRL, conjunctivae normal, anicteric sclerae + anicteric sclerae Neck: trachea midline, no thyromegaly normal visual inspection Respiratory: normal respiratory effort; no respiratory distress Cardiovascular: RRR, no murmur, no edema Gastrointestinal (Abdomen): Percussion/Palpation: abdomen soft; abdomen nontender Musculoskeletal: Head/Neck/Chest: normocephalic and head atraumatic Skin: no rashes, warm and dry Neurologic: moves all extremities Results & Data Results & Data ([place]) Vital Signs (Past 12 Hours) Vital Signs Temp Pulse Resp BP Pulse Ox O2 Del Method 01/04/22 11:09 36.9 C 79 12 97/60 L 98 Room Air 01/04/22 07:47 37.0 C 75 12 93/54 L 96 Room Air
[2022-01-04] MEDS: SODIUM CHLORIDE 0.9% 1000ML 1,000 ML IV SCH (18:18)
[2022-01-04] MEDS: HYDROmorphone PCA 30 MG/30 ML IV PRN (19:36)
[2022-01-04] MEDS: FOLIC ACID 1 MG TAB PO SCH (21:35)
[2022-01-05] MEDS: ACETAMINOPHEN 500 MG TAB PO SCH ×3 (00:33→17:04)
[2022-01-05] MEDS: CHECK fentaNYL PATCH PLACEMENT SCH ×3 (00:33→16:50)
[2022-01-05] MEDS: ZOLPIDEM TARTRATE 5 MG TAB PO PRN (00:33)
[2022-01-05] MEDS: SODIUM CHLORIDE 0.45 % 1,000 ML IV SCH ×2 (00:33→15:28)
[2022-01-05] MEDS: diphenhydrAMINE 50 MG/ML VIAL IV PRN ×4 (01:55→21:17)
--- NOTE | 2022-01-05 08:37 | Hospitalist Progress Note ---
Date of Service January 05, 2022 Assessment & Plan (1) Generalized pain: Plan: Donta Trevizo) is a 20yo female with sickle cell disease and chronic pain who presented to the ER with a three-day history of worsening generalized pain, nausea, and intermittent dizziness, which she describes as similar to prior acute sickle episodes. Now stable and in the process of optimizing pain control. Sickle cell acute pain crisis CXR without acute abnormality, oxygen saturation adequate - no evidence of acute chest syndrome Admission labs notable for anemia (8.6), hyperbilirubinemia (2.0); hsTroponin not elevated Patient occasionally requires transfusions during acute pain episodes; type/screen ordered Etiology likely multifactorial: sickle cell disease acute pain crisis +/- opioid hyperalgesia with viral URI Pain control regimen: APAP 1000mg PO q8h scheduled Oxycodone 5 mg changed to 3 times daily scheduled, continue Dilaudid - Switched to BALING MACHINE OPERATOR 12/26 Continue home fentanyl patch Holding off on NSAIDs given risk of renal injury in setting of hypotension and sickle cell crisis Continue IVF for intravascular volume expansion- Half-normal saline at 80 mL/h Continue home hydroxyurea, folate - Hgb improved to 8.8 Zofran PRN Incentive spirometry Trend daily CBC Sleep difficulties -Continue zolpidem Foreign body ingestion -Ingestion of salmon fishbone on 01/02 -No clinical symptoms of perforation at this time: No chest pain, shortness of breath, drooling -Continue clinical observation for now, if patient were to worsen, consider CT for evaluation with sequential endoscopy if needed Cold-like symptoms POC flu test ordered and was negative, COVID test negative on admission, this is likely representing an acute viral upper respiratory illness. No indication for antibiotics at this time. Incentive spirometry Mucinex and Flonase ordered. Astelin added as well. - symptoms improved Hypotension Patient with intermittent hypotension which is not uncommon for her during sickle cell acute pain episodes, in part due to poor PO intake Continue 1/2 NSS @ 80mL/hr Encourage PO intake, continue to monitor, additional IVF boluses as needed Hyperbilirubinemia Total bilirubin on admission 2.0, LFTs otherwise wnl; likely from hemolysis during acute pain episodes Normalized GERD: continue pantoprazole 40mg IV bid Constipation: continue home miralax, added dulcolax daily. Mag citrate out of stock FEN: regular diet, 1/2 NSS at 80 cc/hr Code status: full code VTE ppx: SCDs PT/OT: ordered Dispo: medical/surgical (2) Elevated bilirubin: (3) Elevated troponin: (4) Nausea: (5) Sickle cell crisis: (6) Observation following foreign body ingestion: Admission and Anticipated Discharge Date Admission Date: December 21, 2021 Supervising Physician Co-Signing Physician Notes Resident Physician Supervision Note: I independently interviewed and examined the patient and verified the amaro history and physical, reviewed labs and image studies and agree with resident findings and care plan. Subjective No acute events overnight. Patient asleep upon arrival. Upon awakening, she reports lapse in pain control, due to lost IV access. Also reports generalized pain, greatest in her hips and legs bilaterally. Otherwise, over the last 12 to 24 hours, she has been requiring BALING MACHINE OPERATOR every 1 to 2.5 hours. She denies headache, shortness of breath, nausea, constipation. Review of Systems Review of Systems: All systems reviewed & are unremarkable except as noted in HPI & below Physical Exam Physical Exam: General: Well-appearing, alert, interactive, and in no acute distress. HEENT: Normocephalic, atraumatic. EOM intact. Good conjugate gaze. Nares patent. Moist mucosal membranes. Neck: Supple. No lymphadenopathy. Normal ROM. CV: Regular rate and rhythm. 3/6 systolic murmur. No gallops or rubs. Respiratory: Normal respiratory effort. Lungs clear to auscultation bilaterally. No crackles, rhonchi, or wheezes. Abdomen: Soft, nondistended abdomen. No bruits heard on auscultation. No tenderness to deep palpation. Extremities: Capillary refill <2 sec. 2+ dp equal bilaterally. No pedal edema. Neuro: Alert and oriented x3. Skin: Clean, dry, and intact. No rashes, bruises, or erythema. Results & Data Results & Data ([facility]) Vital Signs (Past 12 Hours) Vital Signs Temp Pulse Pulse Resp BP BP Pulse Ox 01/05/22 08:00 36.7 C 80 16 100/62 99 01/05/22 02:11 36.8 C 85 18 99/59 L 99 01/04/22 22:27 36.9 C 77 18 101/64 100 O2 Del Method O2 Flow Rate 01/05/22 08:00 Room Air 01/05/22 02:11 Nasal Cannula 2 01/04/22 22:27 Nasal Cannula 2 Resident Activity Tracking Resident Involvement: Resident Care Provided Care Provided: Adult Hospital Medicine
[2022-01-05 08:58] LABS: Basophils # (auto) 0.01 K/uL (0-0.2); Basophils % (auto) 0.2 %; Eosinophils # (auto) 0.12 K/uL (0-0.50); Hematocrit (blood only) 22.6 % (34.1-44.9); Hemoglobin 8.5 g/dl (12.0-16.0); Immature Granulocytes # (auto) 0.01 K/uL (0.00-0.02); Immature Granulocytes % (auto) 0.2 %; Lymphocytes # (auto) 1.77 K/uL (1.2-3.4); Lymphocytes % (auto) 44.1 %; Mean Corpuscular Hemoglobin 40.9 pg (25.0-34.0); Mean Corpuscular Hgb Conc 37.6 g/dL (32.0-36.0); Mean Corpuscular Volume 108.7 fL (80.0-100.0); Mean Platelet Volume 9.4 fL (9.4-12.3); Monocytes % (auto) 7.5 %; Nucleated RBC # (auto) 0.14 K/uL (0-0); Nucleated RBC % (auto) 3.5 %; Platelet Count 563 K/uL (130-400); RDW Coefficient of Variation 17.7 % (11.5-14.5); Red Blood Count 2.08 M/uL (3.93-5.22); White Blood Count 4.01 K/ul (4.8-10.8)
[2022-01-05 09:25] LABS: Alanine Aminotransferase 22 U/L (7-52); Albumin Globulin Ratio 1.1 (0.9-2); Albumin Level 3.9 gm/dl (3.4-5.0); Alkaline Phosphatase 56 U/L (34-104); Anion Gap 4 (3-11); Aspartate Aminotransferase 29 U/L (13-39); Blood Urea Nitrogen 7 mg/dl (6-23); Calcium 8.9 mg/dl (8.5-10.1); Carbon Dioxide 29 mmol/L (21-32); Chloride 103 mmol/L (98-107); Est GFR (African American) > 150.0 ml/min; Est GFR (Non-African American) 141.2 ml/min; Globulin 3.4 gm/dl (2.5-4.0); Glucose Fasting 81 mg/dl (70-99); Potassium 3.6 mmol/L (3.5-5.1); Sodium 136 mmol/L (136-145); Total Protein 7.3 gm/dl (6.0-8.3)
[2022-01-05 09:28] LABS: Macrocytosis Present; Polychromasia 2+; Sickle Cells 1+; Target Cells 2+; Tear Drop Cells 1+
[2022-01-05] MEDS: bisacodyL 5 MG TABEC PO SCH ×2 (10:29→21:14)
[2022-01-05] MEDS: oxyCODONE HCL IR 5 MG TAB (IMMEDIATE RELEASE) PO SCH ×3 (10:29→21:16)
[2022-01-05] MEDS: HYDROXYUREA 500 MG CAP PO SCH ×2 (10:30→21:15)
[2022-01-05] MEDS: guaiFENesin 600 MG TABCR PO SCH ×2 (10:30→21:15)
[2022-01-05] MEDS: POLYETHYLENE (MIRALAX) 17 GM PACK PO SCH ×2 (10:30→21:16)
[2022-01-05] MEDS: EUCERIN CR 120 GM JAR EXT SCH ×4 (10:31→21:14)
[2022-01-05] MEDS: FLUTICASONE PROPIONATE NA SPR 16 GM BTL SCH (10:31)
[2022-01-05] MEDS: ARTIFICIAL TEARS OP OINT 3.5 GM TUBE OP SCH ×4 (10:32→21:14)
[2022-01-05] MEDS: AZELASTINE HCL 0.1% NASAL 200 SPRAYS/27,400 MCG BTL SCH ×2 (10:33→21:14)
[2022-01-05] MEDS: FAMOTIDINE 20 MG TAB PO SCH ×2 (11:14→21:15)
[2022-01-05] MEDS: ALUMINUM/MAGNESIUM/SIMETH (MAALOX MAX) 30 ML UDC PO SCH ×4 (11:14→21:14)
[2022-01-05] MEDS: HYDROmorphone PCA 30 MG/30 ML IV PRN (11:35)
[2022-01-05] MEDS: SODIUM CHLORIDE 0.9% 1000ML 1,000 ML IV SCH (16:51)
[2022-01-05] MEDS ORDERED: Nursing to Pharmacy Communication SCH (19:00)
[2022-01-05] MEDS: FOLIC ACID 1 MG TAB PO SCH (21:15)
[2022-01-06] MEDS: SODIUM CHLORIDE 0.45 % 1,000 ML IV SCH ×2 (03:31→16:56)
[2022-01-06] MEDS: diphenhydrAMINE 50 MG/ML VIAL IV PRN ×3 (03:40→18:48)
[2022-01-06] MEDS: ACETAMINOPHEN 500 MG TAB PO SCH ×3 (03:40→17:38)
[2022-01-06] MEDS: HYDROmorphone PCA 30 MG/30 ML IV PRN (07:27)
--- NOTE | 2022-01-06 08:15 | Hospitalist Progress Note ---
Date of Service January 06, 2022 Assessment & Plan (1) Generalized pain: Plan: Donta Trevizo) is a 20yo female with sickle cell disease and chronic pain who presented to the ER with a three-day history of worsening generalized pain, nausea, and intermittent dizziness, which she describes as similar to prior acute sickle episodes. Now stable and in the process of optimizing pain control. Sickle cell acute pain crisis CXR without acute abnormality, oxygen saturation adequate - no evidence of acute chest syndrome Admission labs notable for anemia (8.6), hyperbilirubinemia (2.0); hsTroponin not elevated Patient occasionally requires transfusions during acute pain episodes; type/screen ordered Etiology likely multifactorial: sickle cell disease acute pain crisis +/- opioid hyperalgesia with viral URI Pain control regimen: APAP 1000mg PO q8h scheduled Oxycodone 5 mg changed to 3 times daily scheduled, continue Dilaudid - Switched to MATTRESS MAKER 12/26 Continue home fentanyl patch Holding off on NSAIDs given risk of renal injury in setting of hypotension and sickle cell crisis Continue IVF for intravascular volume expansion- Half-normal saline at 80 mL/h Continue home hydroxyurea, folate - Hgb improved to 8.8 Zofran PRN for insomnia Incentive spirometry Trend daily CBC Sleep difficulties -Continue zolpidem Foreign body ingestion -Ingestion of salmon fishbone on 01/02 -No clinical symptoms of perforation at this time: No chest pain, shortness of breath, drooling -Continue clinical observation for now, if patient were to worsen, consider CT for evaluation with sequential endoscopy if needed Cold-like symptoms POC flu test ordered and was negative, COVID test negative on admission, this is likely representing an acute viral upper respiratory illness. No indication for antibiotics at this time. Incentive spirometry Mucinex and Flonase ordered. Astelin added as well. - symptoms improved Hypotension Patient with intermittent hypotension which is not uncommon for her during sickle cell acute pain episodes, in part due to poor PO intake Continue 1/2 NSS @ 80mL/hr Encourage PO intake, continue to monitor, additional IVF boluses as needed Hyperbilirubinemia Total bilirubin on admission 2.0, LFTs otherwise wnl; likely from hemolysis during acute pain episodes Resolved GERD: Held pantoprazole 40mg IV bid Constipation: continue home miralax, added dulcolax daily. Mag citrate out of stock FEN: regular diet, 1/2 NSS at 80 cc/hr Code status: full code VTE ppx: SCDs PT/OT: ordered Dispo: medical/surgical (2) Elevated bilirubin: (3) Elevated troponin: (4) Nausea: (5) Sickle cell crisis: (6) Observation following foreign body ingestion: Admission and Anticipated Discharge Date Admission Date: December 21, 2021 Supervising Physician Co-Signing Physician Notes Resident Physician Supervision Note: I independently interviewed and examined the patient and verified the amaro history and physical, reviewed labs and image studies and agree with resident findings and care plan. Subjective No acute events overnight. This morning, she reports fatigue, dizziness, worsening pain in her hips and legs. Review of Systems Review of Systems: All systems reviewed & are unremarkable except as noted in HPI & below Physical Exam Physical Exam: General: Well-appearing, alert, interactive, and in no acute distress. HEENT: Normocephalic, atraumatic. EOM intact. Good conjugate gaze. Nares patent. Moist mucosal membranes. Neck: Supple. No lymphadenopathy. Normal ROM. CV: Regular rate and rhythm. 3/6 systolic murmur. No gallops or rubs. Respiratory: Normal respiratory effort. Lungs clear to auscultation bilaterally. No crackles, rhonchi, or wheezes. Abdomen: Soft, nondistended abdomen. No bruits heard on auscultation. No tenderness to deep palpation. Extremities: Capillary refill <2 sec. 2+ dp equal bilaterally. No pedal edema. Neuro: Alert and oriented x3. Skin: Clean, dry, and intact. No rashes, bruises, or erythema. Results & Data Results & Data ([facility]) Vital Signs (Past 12 Hours) Vital Signs Temp Pulse Resp BP Pulse Ox O2 Del Method O2 Flow Rate 01/06/22 03:29 36.8 C 77 10 L 93/60 L 99 Room Air 01/05/22 22:51 36.7 C 79 18 100/65 97 Room Air 01/05/22 20:15 Nasal Cannula 2 Resident Activity Tracking Resident Involvement: Resident Care Provided Care Provided: Adult Hospital Medicine
[2022-01-06] MEDS: oxyCODONE HCL IR 5 MG TAB (IMMEDIATE RELEASE) PO SCH ×3 (09:50→22:21)
[2022-01-06] MEDS: bisacodyL 5 MG TABEC PO SCH ×2 (09:50→21:12)
[2022-01-06] MEDS: FAMOTIDINE 20 MG TAB PO SCH ×2 (09:51→21:08)
[2022-01-06] MEDS: HYDROXYUREA 500 MG CAP PO SCH ×2 (09:51→21:10)
[2022-01-06] MEDS: ARTIFICIAL TEARS OP OINT 3.5 GM TUBE OP SCH ×4 (09:51→21:13)
[2022-01-06] MEDS: guaiFENesin 600 MG TABCR PO SCH (09:51)
[2022-01-06] MEDS: ALUMINUM/MAGNESIUM/SIMETH (MAALOX MAX) 30 ML UDC PO SCH ×4 (09:51→21:11)
[2022-01-06] MEDS: AZELASTINE HCL 0.1% NASAL 200 SPRAYS/27,400 MCG BTL SCH ×2 (09:52→21:13)
[2022-01-06] MEDS: EUCERIN CR 120 GM JAR EXT SCH ×4 (09:53→21:14)
[2022-01-06] MEDS: FLUTICASONE PROPIONATE NA SPR 16 GM BTL SCH (09:53)
[2022-01-06] MEDS: POLYETHYLENE (MIRALAX) 17 GM PACK PO SCH ×2 (09:54→21:12)
[2022-01-06] MEDS: SODIUM CHLORIDE 0.9% 1000ML 1,000 ML IV SCH (16:14)
[2022-01-06] MEDS: FOLIC ACID 1 MG TAB PO SCH (21:10)
[2022-01-07] MEDS: ACETAMINOPHEN 500 MG TAB PO SCH ×3 (00:52→16:12)
[2022-01-07] MEDS: diphenhydrAMINE 50 MG/ML VIAL IV PRN ×2 (00:52→08:25)
[2022-01-07] MEDS: SODIUM CHLORIDE 0.45 % 1,000 ML IV SCH ×2 (05:27→21:15)
[2022-01-07] MEDS: oxyCODONE HCL IR 5 MG TAB (IMMEDIATE RELEASE) PO SCH (08:23)
[2022-01-07] MEDS: FAMOTIDINE 20 MG TAB PO SCH ×2 (08:26→21:34)
[2022-01-07] MEDS: HYDROXYUREA 500 MG CAP PO SCH ×2 (08:26→21:35)
[2022-01-07] MEDS: AZELASTINE HCL 0.1% NASAL 200 SPRAYS/27,400 MCG BTL SCH ×2 (08:29→21:35)
[2022-01-07] MEDS: ALUMINUM/MAGNESIUM/SIMETH (MAALOX MAX) 30 ML UDC PO SCH ×4 (08:30→21:43)
[2022-01-07] MEDS: FLUTICASONE PROPIONATE NA SPR 16 GM BTL SCH (08:30)
[2022-01-07] MEDS: ARTIFICIAL TEARS OP OINT 3.5 GM TUBE OP SCH ×4 (08:31→21:35)
[2022-01-07] MEDS: bisacodyL 5 MG TABEC PO SCH ×2 (08:32→21:39)
[2022-01-07] MEDS: POLYETHYLENE (MIRALAX) 17 GM PACK PO SCH ×2 (08:33→21:36)
[2022-01-07] MEDS: EUCERIN CR 120 GM JAR EXT SCH ×4 (08:33→21:35)
[2022-01-07 08:57] LABS: Hematocrit (blood only) 22.7 % (34.1-44.9); Hemoglobin 8.5 g/dl (12.0-16.0)
[2022-01-07 09:24] LABS: Anion Gap 4 (3-11); BUN Creatinine Ratio 8.2 (10-20); Blood Urea Nitrogen 4 mg/dl (6-23); Calcium 9.1 mg/dl (8.5-10.1); Carbon Dioxide 29 mmol/L (21-32); Chloride 105 mmol/L (98-107); Creatinine Clr Calc Pharmacy 167.2 ml/min; Est GFR (African American) > 150.0 ml/min; Est GFR (Non-African American) 137.3 ml/min; Glucose 81 mg/dl (70-99(Fasting)); Sodium 138 mmol/L (136-145)
[2022-01-07] MEDS ORDERED: MECLIZINE HCL 25 MG TAB PO PRN (10:05)
[2022-01-07] MEDS ORDERED: oxyCODONE HCL IR 5 MG TAB (IMMEDIATE RELEASE) PO PRN (10:07)
--- NOTE | 2022-01-07 12:58 | Hospitalist Progress Note ---
Date of Service January 07, 2022 Assessment & Plan (1) Generalized pain: Plan: Donta Trevizo) is a 20yo female with sickle cell disease and chronic pain who presented to the ER with a three-day history of worsening generalized pain, nausea, and intermittent dizziness, which she describes as similar to prior acute sickle episodes. Now stable and in the process of optimizing pain control. Sickle cell acute pain crisis CXR without acute abnormality, oxygen saturation adequate - no evidence of acute chest syndrome Admission labs notable for anemia (8.6), hyperbilirubinemia (2.0), hsTroponin not elevated; hgb remains stable Etiology likely multifactorial: sickle cell disease acute pain crisis +/- opioid hyperalgesia with viral URI Pain control regimen: APAP 1000mg PO q8h scheduled Trialed Oxycodone 5 mg transitioned to prn q6h and d/c dilaudid TEST RIDER --> pain not controlled, TEST RIDER resumed Continue home fentanyl patch Holding off on NSAIDs given risk of renal injury in setting of hypotension and sickle cell crisis Continue IVF for intravascular volume expansion- Half-normal saline at 80 mL/h. Continue home hydroxyurea, folate, zofran Meclizine for dizziness, Incentive spirometry Trend H&H qod Sleep difficulties -Continue zolpidem qhs prn Cold-like symptoms, resolved POC flu test ordered and was negative, COVID test negative on admission, this is likely representing an acute viral upper respiratory illness. No indication for antibiotics at this time. Incentive spirometry Mucinex, Flonase, Astelin Hypotension, resolved Patient with intermittent hypotension which is not uncommon for her during sickle cell acute pain episodes, in part due to poor PO intake Continue 1/2 NSS @ 80mL/hr Encourage PO intake, continue to monitor, additional IVF boluses as needed Hyperbilirubinemia, resolved Total bilirubin on admission 2.0, LFTs otherwise wnl; likely from hemolysis during acute pain episodes GERD: Held pantoprazole 40mg IV bid. Cont. famotidine. Constipation: continue home miralax, added Dulcolax daily. Mag citrate out of stock FEN: regular diet, 1/2 NSS at 80 cc/hr Code status: full code VTE ppx: SCDs Dispo: med surg (2) Elevated bilirubin: (3) Elevated troponin: (4) Nausea: (5) Sickle cell crisis: (6) Observation following foreign body ingestion: Admission and Anticipated Discharge Date Admission Date: December 21, 2021 Supervising Physician Co-Signing Physician Notes I personally examined the patient and verified all amaro points of history and exam, discussed case, and agree with decision making with Dr Bailey. After being seen by Dr. Bailey earlier today, pain medicine was transitioned to what she could go home with/p.o.an attempt to see if she would be able to get h ome today. Unfortunately whenever we see her this afternoon she is in a good deal of pain. Vitals noted, whenever I see her she appears to be uncomfortable and in moderate pain distress. Breathing unlabored no accessory muscle use good effort. Skin shows no rashes no pallor or icterus. Neuro without focal deficits. Sickle cell acute pain crisisbecause she had been doing well enough, attempt to transition to home meds earlier todayunfortunately she is not quite ready yetresume TEST RIDER. Continue to follow. otherwise as above Subjective Seen at bedside this morning. No acute events overnight. Still having pain despite pain regimen but better than previous. She states she would like to go home. Does have some dizziness. Denies chest pain, sob, N/V, abd pain. Review of Systems Review of Systems: All systems reviewed & are unremarkable except as noted in HPI & below Physical Exam Physical Exam: General: Well-appearing, alert, interactive, and in no acute distress. HEENT: Normocephalic, atraumatic. EOMI. Moist mucosal membranes. Neck: Supple. No lymphadenopathy. CV: RRR. 3/6 systolic murmur. No gallops or rubs. Respiratory: Normal respiratory effort. CTAB. No crackles, rhonchi, or wheezes. Abdomen: Soft, nontender, nondistended abdomen. Extremities: 2+ dp equal bilaterally. No pedal edema. Neuro: Alert and oriented x3. Skin: No rashes, bruises, or erythema. Results & Data Results & Data ([facility]) Vital Signs (Past 12 Hours) Vital Signs Temp Pulse Pulse Resp BP BP Pulse Ox 01/07/22 08:40 36.5 C 96 H 16 114/76 100 01/07/22 07:43 36.9 C 75 14 100/65 99 01/07/22 04:15 36.8 C 80 16 101/63 99 O2 Del Method 01/07/22 08:40 Room Air 11/21/22 07:43 Room Air 01/07/22 04:15 Room Air Laboratory Results 01/07/22 01/07/22 Range/Units 08:37 08:37 Hgb 8.5 L (12.0-16.0) g/dl Hct 22.7 L (34.1-44.9) % Sodium 138 (136-145) mmol/L Potassium 4.0 (3.5-5.1) mmol/L Chloride 105 (98-107) mmol/L Carbon Dioxide 29 (21-32) mmol/L Anion Gap 4 (3-11) BUN 4 L (6-23) mg/dl Creatinine 0.49 L (0.6-1.2) mg/dl Est Cr Clr Drug Dosing 167.2 ml/min Est GFR ( Amer) > 150.0 ml/min Est GFR (Non-Af Amer) 137.3 ml/min BUN/Creatinine Ratio 8.2 L (10-20) Glucose 81 (70-99(Fasting)) mg/dl Calcium 9.1 (8.5-10.1) mg/dl Resident Activity Tracking Resident Involvement: Resident Care Provided Care Provided: Adult Hospital Medicine
[2022-01-07] MEDS: SODIUM CHLORIDE 0.9% 1000ML 1,000 ML IV SCH (16:48)
[2022-01-07] MEDS ORDERED: Nursing to Pharmacy Communication SCH (17:00)
[2022-01-07] MEDS ORDERED: HYDROmorphone INJ 1 MG/ML SYRINGE IV STA (17:31)
--- NOTE | 2022-01-07 19:38 | Billing Data ---
Date of Service January 07, 2022 Coding Level of Care Code 38668 Subseq Hosp Care Lvl 3
[2022-01-07] MEDS: oxyCODONE HCL IR 5 MG TAB (IMMEDIATE RELEASE) PO PRN (21:33)
[2022-01-07] MEDS: FOLIC ACID 1 MG TAB PO SCH (21:34)
[2022-01-07] MEDS: ZOLPIDEM TARTRATE 5 MG TAB PO PRN (21:40)
[2022-01-08] MEDS: ACETAMINOPHEN 500 MG TAB PO SCH ×3 (02:13→16:39)
[2022-01-08] MEDS: oxyCODONE HCL IR 5 MG TAB (IMMEDIATE RELEASE) PO PRN ×2 (03:26→11:10)
[2022-01-08] MEDS ORDERED: HYDROmorphone INJ 0.5 MG/0.5 ML SYR IV STA (04:45)
--- NOTE | 2022-01-08 07:08 | Hospitalist Progress Note ---
Date of Service January 08, 2022 Assessment & Plan (1) Generalized pain: Plan: Donta Trevizo) is a 20yo female with sickle cell disease and chronic pain who presented to the ER with a three-day history of worsening generalized pain, nausea, and intermittent dizziness, which she describes as similar to prior acute sickle episodes. Now stable and in the process of optimizing pain control. Sickle cell acute pain crisis CXR without acute abnormality, oxygen saturation adequate - no evidence of acute chest syndrome Admission labs notable for anemia (8.6), hyperbilirubinemia (2.0), hsTroponin not elevated; hgb remains stable Etiology likely multifactorial: sickle cell disease acute pain crisis +/- opioid hyperalgesia with viral URI Pain control regimen: APAP 1000mg PO q8h scheduled Trialed Oxycodone 5 mg transitioned to prn q6h and d/c dilaudid EVAPORATOR REPAIRER --> pain not controlled, EVAPORATOR REPAIRER resumed + oxy 5mg q4h prn Continue home fentanyl patch Holding off on NSAIDs given risk of renal injury in setting of hypotension and sickle cell crisis Continue IVF for intravascular volume expansion- Half-normal saline at 80 mL/h. Continue home hydroxyurea, folate, zofran Meclizine for dizziness, Incentive spirometry Trend H&H, bmp, mag qod Sleep difficulties -Continue zolpidem qhs prn Cold-like symptoms, resolved POC flu test ordered and was negative, COVID test negative on admission, this is likely representing an acute viral upper respiratory illness. No indication for antibiotics at this time. Incentive spirometry Mucinex, Flonase, Astelin Hypotension, resolved Patient with intermittent hypotension which is not uncommon for her during sic kle cell acute pain episodes, in part due to poor PO intake Continue 1/2 NSS @ 80mL/hr Encourage PO intake, continue to monitor, additional IVF boluses as needed Hyperbilirubinemia, resolved Total bilirubin on admission 2.0, LFTs otherwise wnl; likely from hemolysis during acute pain episodes GERD: Held pantoprazole 40mg IV bid. Cont. famotidine. Constipation: continue home miralax, Dulcolax daily. Mag citrate out of stock FEN: regular diet, 1/2 NSS at 80 cc/hr Code status: full code VTE ppx: SCDs Dispo: med surg (2) Elevated bilirubin: (3) Elevated troponin: (4) Nausea: (5) Sickle cell crisis: (6) Observation following foreign body ingestion: Admission and Anticipated Discharge Date Admission Date: December 21, 2021 Supervising Physician Co-Signing Physician Notes I personally examined the patient and verified all amaro points of history and exam, discussed case, and agree with decision making with Dr Bailey. pain was worse earlier - when i see her she is asleep and appears comfortable. allowed to sleep. Vitals noted, sleeping and appears comfortable, nad. Breathing unlabored no accessory muscle use good effort. Skin shows no rashes no pallor or icterus. Neuro without focal deficits. Sickle cell acute pain crisis- back on EVAPORATOR REPAIRER, resting. continue current care otherwise as above Subjective Seen at bedside this morning. EVAPORATOR REPAIRER was stopped overnight and she was in a lot of pain. Had one dose of 0.5mg IV Dilaudid along with her current pain regimen. Meclizine helping with dizziness. Minimal itchiness with Benadryl discontinued. Denies chest pain, sob, N/V, abd pain. Review of Systems Review of Systems: All systems reviewed & are unremarkable except as noted in HPI & below Physical Exam Physical Exam: General: Well-appearing, alert, interactive, and in no acute distress. HEENT: Normocephalic, atraumatic. EOMI. Moist mucosal membranes. Neck: Supple. No lymphadenopathy. CV: RRR. 3/6 systolic murmur. No gallops or rubs. Respiratory: Normal respiratory effort. CTAB. No crackles, rhonchi, or wheezes. Abdomen: Soft, nontender, nondistended abdomen. Extremities: 2+ dp equal bilaterally. No pedal edema. Neuro: Alert and oriented x3. Skin: No rashes, bruises, or erythema. Results & Data Results & Data ([facility]) Vital Signs (Past 12 Hours) Vital Signs Temp Pulse Resp BP Pulse Ox O2 Del Method 01/07/22 21:00 Room Air 01/07/22 21:16 36.9 C 89 16 101/65 100 Room Air Resident Activity Tracking Resident Involvement: Resident Care Provided Care Provided: Adult Hospital Medicine
[2022-01-08] MEDS ORDERED: HYDROmorphone INJ 1 MG/ML SYRINGE IV STA (08:42)
[2022-01-08] MEDS: FAMOTIDINE 20 MG TAB PO SCH ×2 (09:09→20:27)
[2022-01-08] MEDS: HYDROXYUREA 500 MG CAP PO SCH ×2 (09:09→20:28)
[2022-01-08] MEDS: bisacodyL 5 MG TABEC PO SCH ×2 (09:13→20:26)
[2022-01-08] MEDS: AZELASTINE HCL 0.1% NASAL 200 SPRAYS/27,400 MCG BTL SCH ×2 (09:20→20:28)
[2022-01-08] MEDS: EUCERIN CR 120 GM JAR EXT SCH ×4 (09:20→20:26)
[2022-01-08] MEDS: ARTIFICIAL TEARS OP OINT 3.5 GM TUBE OP SCH ×4 (09:20→20:22)
[2022-01-08] MEDS: ALUMINUM/MAGNESIUM/SIMETH (MAALOX MAX) 30 ML UDC PO SCH ×4 (09:20→20:26)
[2022-01-08] MEDS: SODIUM CHLORIDE 0.45 % 1,000 ML IV SCH ×2 (09:20→21:42)
[2022-01-08] MEDS: FLUTICASONE PROPIONATE NA SPR 16 GM BTL SCH (09:20)
[2022-01-08] MEDS: POLYETHYLENE (MIRALAX) 17 GM PACK PO SCH ×2 (09:21→20:22)
[2022-01-08] MEDS ORDERED: NALOXONE HCL 0.4 MG/1 ML VIAL/CARP IV PRN (11:23)
[2022-01-08] MEDS: HYDROmorphone PCA 30 MG/30 ML IV PRN (11:56)
[2022-01-08] MEDS: SODIUM CHLORIDE 0.9% 1000ML 1,000 ML IV SCH (12:08)
--- NOTE | 2022-01-08 18:51 | Billing Data ---
Date of Service January 08, 2022 Coding Level of Care Code 78681 Subseq Hosp Care Lvl 1
[2022-01-08] MEDS: FOLIC ACID 1 MG TAB PO SCH (20:27)
[2022-01-09] MEDS: ACETAMINOPHEN 500 MG TAB PO SCH ×3 (00:02→16:19)
--- NOTE | 2022-01-09 07:11 | Hospitalist Progress Note ---
Date of Service January 09, 2022 Assessment & Plan (1) Generalized pain: Plan: Donta Trevizo) is a 20yo female with sickle cell disease and chronic pain who presented to the ER with a three-day history of worsening generalized pain, nausea, and intermittent dizziness, which she describes as similar to prior acute sickle episodes. Now stable and in the process of optimizing pain control. Sickle cell acute pain crisis CXR without acute abnormality, oxygen saturation adequate - no evidence of acute chest syndrome Admission labs notable for anemia (8.6), hyperbilirubinemia (2.0), hsTroponin not elevated; hgb remains stable Etiology likely multifactorial: sickle cell disease acute pain crisis +/- opioid hyperalgesia with viral URI Pain control regimen: APAP 1000mg PO q8h scheduled SENSITIZED PAPER TESTER dilaudid 1mg q1h + oxy 5mg q6h prn Continue home fentanyl patch Holding off on NSAIDs given risk of renal injury in setting of hypotension and sickle cell crisis Continue IVF for intravascular volume expansion- Half-normal saline at 80 mL/h. Continue home hydroxyurea, folate, zofran Meclizine for dizziness, Incentive spirometry Trend H&H, bmp, mag qod Sleep difficulties -Continue zolpidem qhs prn Cold-like symptoms, resolved POC flu test ordered and was negative, COVID test negative on admission, this is likely representing an acute viral upper respiratory illness. No indication for antibiotics at this time. Incentive spirometry Mucinex, Flonase, Astelin Hypotension, resolved Patient with intermittent hypotension which is not uncommon for her during sickle cell acute pain episodes, in part due to poor PO intake Continue 1/2 NSS @ 80mL/hr Encourage PO intake, continue to monitor, additional IVF boluses as needed Hyperbilirubinemia, resolved Total bilirubin on admission 2.0, LFTs otherwise wnl; likely from hemolysis during acute pain episodes GERD: Held pantoprazole 40mg IV bid. Cont. famotidine. Constipation: continue home miralax, Dulcolax, maalox daily. Mag citrate out of s.tock FEN: regular diet, 1/2 NSS 80 ml/hr Code status: full code VTE ppx: SCDs Dispo: med surg (2) Elevated bilirubin: (3) Elevated troponin: (4) Nausea: (5) Sickle cell crisis: (6) Observation following foreign body ingestion: Admission and Anticipated Discharge Date Admission Date: December 21, 2021 Supervising Physician Co-Signing Physician Notes I personally examined the patient and verified all amaro points of history and exam, discussed case, and agree with decision making with Dr Bailey. Pain under better control back on SENSITIZED PAPER TESTER. Notes concerned about her overall worsening trajectoryI offered empathy and support as best I could. Vitals noted, pleasant, nad. Breathing unlabored no accessory muscle use good effort. Skin shows no rashes no pallor or icterus. Neuro without focal deficits. Sickle cell acute pain crisis- back on SENSITIZED PAPER TESTER, pain under better control. Offered empathy and support. Continue current care for now. otherwise as above Subjective Seen at bedside this morning. Pain better back on SENSITIZED PAPER TESTER pump. Trying to minimize use of oxy. Thinking about weening off SENSITIZED PAPER TESTER. Meclizine helping with dizziness. BM yesterday. Denies chest pain, sob, N/V, abd pain. Review of Systems Review of Systems: All systems reviewed & are unremarkable except as noted in HPI & below Physical Exam Physical Exam: General: Well-appearing, alert, interactive, and in no acute distress. HEENT: Normocephalic, atraumatic. EOMI. Moist mucosal membranes. Neck: Supple. No lymphadenopathy. CV: RRR. 3/6 systolic murmur. No gallops or rubs. Respiratory: Normal respiratory effort. CTAB. No crackles, rhonchi, or wheezes. Abdomen: Soft, nontender, nondistended abdomen. Extremities: 2+ dp equal bilaterally. No pedal edema. Neuro: Alert and oriented x3. Skin: No rashes, bruises, or erythema. Results & Data Results & Data ([facility]) Vital Signs (Past 12 Hours) Vital Signs Temp Pulse Resp BP Pulse Ox O2 Del Method 01/08/22 20:01 36.8 C 79 16 107/70 99 Room Air Laboratory Results 01/09/22 01/09/22 Range/Units 08:08 08:08 Hgb 8.8 L (12.0-16.0) g/dl Hct 23.2 L (34.1-44.9) % Sodium 139 (136-145) mmol/L Potassium 3.6 (3.5-5.1) mmol/L Chloride 107 (98-107) mmol/L Carbon Dioxide 26 (21-32) mmol/L Anion Gap 6 (3-11) BUN 4 L (6-23) mg/dl Creatinine 0.37 L (0.6-1.2) mg/dl Est Cr Clr Drug Dosing 221.4 ml/min Est GFR ( Amer) > 150.0 ml/min Est GFR (Non-Af Amer) > 150.0 ml/min BUN/Creatinine Ratio 10.8 (10-20) Glucose 84 (70-99(Fasting)) mg/dl Calcium 9.2 (8.5-10.1) mg/dl Magnesium 1.6 L (1.7-2.4) mg/dl Resident Activity Tracking Resident Involvement: Resident Care Provided Care Provided: Adult Hospital Medicine
[2022-01-09 08:43] LABS: Hematocrit (blood only) 23.2 % (34.1-44.9); Hemoglobin 8.8 g/dl (12.0-16.0)
[2022-01-09] MEDS: FLUTICASONE PROPIONATE NA SPR 16 GM BTL SCH (08:57)
[2022-01-09] MEDS: HYDROXYUREA 500 MG CAP PO SCH ×2 (08:58→21:14)
[2022-01-09] MEDS: FAMOTIDINE 20 MG TAB PO SCH ×2 (08:58→21:13)
[2022-01-09] MEDS: ALUMINUM/MAGNESIUM/SIMETH (MAALOX MAX) 30 ML UDC PO SCH ×4 (08:59→21:12)
[2022-01-09] MEDS: AZELASTINE HCL 0.1% NASAL 200 SPRAYS/27,400 MCG BTL SCH ×2 (08:59→21:12)
[2022-01-09] MEDS: ARTIFICIAL TEARS OP OINT 3.5 GM TUBE OP SCH ×4 (08:59→21:08)
[2022-01-09] MEDS: EUCERIN CR 120 GM JAR EXT SCH ×4 (08:59→21:09)
[2022-01-09] MEDS: POLYETHYLENE (MIRALAX) 17 GM PACK PO SCH ×2 (09:00→21:09)
[2022-01-09] MEDS: bisacodyL 5 MG TABEC PO SCH ×2 (09:00→21:12)
[2022-01-09] MEDS: MECLIZINE HCL 25 MG TAB PO SCH ×3 (09:05→17:08)
[2022-01-09 09:17] LABS: Anion Gap 6 (3-11); BUN Creatinine Ratio 10.8 (10-20); Blood Urea Nitrogen 4 mg/dl (6-23); Calcium 9.2 mg/dl (8.5-10.1); Carbon Dioxide 26 mmol/L (21-32); Chloride 107 mmol/L (98-107); Creatinine Clr Calc Pharmacy 221.4 ml/min; Est GFR (African American) > 150.0 ml/min; Est GFR (Non-African American) > 150.0 ml/min; Glucose 84 mg/dl (70-99(Fasting)); Magnesium 1.6 mg/dl (1.7-2.4); Potassium 3.6 mmol/L (3.5-5.1); Sodium 139 mmol/L (136-145)
[2022-01-09] MEDS ORDERED: MAGNESIUM SULFATE / D5W 1 GM/100 ML BAG IV ONE (09:31)
[2022-01-09] MEDS: SODIUM CHLORIDE 0.45 % 1,000 ML IV SCH (10:22)
[2022-01-09] MEDS: SODIUM CHLORIDE 0.9% 1000ML 1,000 ML IV SCH (10:38)
--- NOTE | 2022-01-09 19:03 | Billing Data ---
Date of Service January 09, 2022 Coding Level of Care Code 63834 Subseq Hosp Care Lvl 3
--- NOTE | 2022-01-09 19:19 | Communication Note ---
Date of Service: January 09, 2022 Patient has requested that her code status be changed to DNR/DNI.
[2022-01-09] MEDS: ZOLPIDEM TARTRATE 5 MG TAB PO PRN (21:12)
[2022-01-09] MEDS: FOLIC ACID 1 MG TAB PO SCH (21:13)
[2022-01-10] MEDS: MECLIZINE HCL 25 MG TAB PO SCH ×4 (00:06→18:01)
[2022-01-10] MEDS: ACETAMINOPHEN 500 MG TAB PO SCH ×3 (00:06→18:01)
[2022-01-10] MEDS: SODIUM CHLORIDE 0.45 % 1,000 ML IV SCH ×2 (00:07→13:41)
[2022-01-10] MEDS: HYDROmorphone PCA 30 MG/30 ML IV PRN ×2 (05:33→10:56)
--- NOTE | 2022-01-10 06:59 | Hospitalist Progress Note ---
Date of Service January 10, 2022 Assessment & Plan (1) Generalized pain: Plan: Donta Trevizo) is a 20yo female with sickle cell disease and chronic pain who presented to the ER with a three-day history of worsening generalized pain, nausea, and intermittent dizziness, which she describes as similar to prior acute sickle episodes. Now stable and in the process of optimizing pain control. Sickle cell acute pain crisis CXR without acute abnormality, oxygen saturation adequate - no evidence of acute chest syndrome Admission labs notable for anemia (8.6), hyperbilirubinemia (2.0), hsTroponin not elevated; hgb remains stable Etiology likely multifactorial: sickle cell disease acute pain crisis +/- opioid hyperalgesia with viral URI Pain control regimen: APAP 1000mg PO q8h scheduled STRIPING MACHINE OPERATOR dilaudid 1mg q1h + oxy 5mg q6h prn --> STRIPING MACHINE OPERATOR ween down to 1mg q1.5h Continue home fentanyl patch Holding off on NSAIDs given risk of renal injury in setting of hypotension and sickle cell crisis Continue IVF for intravascular volume expansion- 1/2NSS at 80 mL/h. Continue home hydroxyurea, folate, zofran Meclizine for dizziness, Incentive spirometry Trend H&H, bmp, mag qod Sleep difficulties -Continue zolpidem qhs prn Cold-like symptoms, resolved POC flu test ordered and was negative, COVID test negative on admission, this is likely representing an acute viral upper respiratory illness. No indication for antibiotics at this time. Incentive spirometry Mucinex, Flonase, Astelin Hypotension, resolved Patient with intermittent hypotension which is not uncommon for her during sickle cell acute pain episodes, in part due to poor PO intake Continue 1/2 NSS @ 80mL/hr Encourage PO intake, continue to monitor, additional IVF boluses as needed Hyperbilirubinemia, resolved Total bilirubin on admission 2.0, LFTs otherwise wnl; likely from hemolysis during acute pain episodes GERD: Held pantoprazole 40mg IV bid. Cont. famotidine. Constipation: continue home miralax, Dulcolax, maalox daily. Mag citrate out of s.tock FEN: regular diet, 1/2 NSS 80 ml/hr Code status: DNI/DNR, had lengthy discussion with patient regarding code status decision VTE ppx: SCDs Dispo: med surg (2) Elevated bilirubin: (3) Elevated troponin: (4) Nausea: (5) Sickle cell crisis: (6) Observation following foreign body ingestion: Admission and Anticipated Discharge Date Admission Date: December 21, 2021 Supervising Physician Co-Signing Physician Notes I personally examined the patient and verified all amaro points of history and exam, discussed case, and agree with decision making with Dr. Bailey with the following additions/exceptions: S-Pt reports pain is better controlled. Has pain mostly from hips down legs LLE>RLE. Moving bowels, eating and drinking. O- Vitals reviewed Gen: [AAOx3, NAD, flat affect] HEENT: [anicteric sclerae, EOMI] CV: [RRR no mgr nl S1S2] Pulm: [CTAB no wcr] Abd: [+BS soft NT ND no masses or hernias] Ext: [no edema] Skin: [no rashes, warm/dry] Neuro: [full strength throughout] A/P-21 yo female here with acute on chronic pain 2/2 sickle cell crisis. Weaning down Dilaudid STRIPING MACHINE OPERATOR pump. 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 Last night requested to be DNI/DNR. Pain better on STRIPING MACHINE OPERATOR pump. Trying to minimize use of oxy. Would like to ween down STRIPING MACHINE OPERATOR. Meclizine helping with dizziness. BM yesterday. Denies chest pain, sob, N/V, abd pain. Review of Systems Review of Systems: All systems reviewed & are unremarkable except as noted in HPI & below Physical Exam Physical Exam: General: Well-appearing, alert, interactive, and in no acute distress. HEENT: Normocephalic, atraumatic. EOMI. Moist mucosal membranes. Neck: Supple. No lymphadenopathy. CV: RRR. 3/6 systolic murmur. No gallops or rubs. Respiratory: Normal respiratory effort. CTAB. No crackles, rhonchi, or wheezes. Abdomen: Soft, nontender, nondistended abdomen. Extremities: 2+ dp equal bilaterally. No pedal edema. Neuro: Alert and oriented x3. Skin: No rashes, bruises, or erythema. Results & Data Results & Data ([facility]) Vital Signs (Past 12 Hours) Vital Signs Temp Pulse Resp BP Pulse Ox O2 Del Method 01/09/22 22:47 77 16 98/60 L 96 Room Air 01/09/22 20:00 36.8 C 80 16 113/72 98 Room Air Resident Activity Tracking Resident Involvement: Resident Care Provided Care Provided: Adult Hospital Medicine
[2022-01-10] MEDS: ARTIFICIAL TEARS OP OINT 3.5 GM TUBE OP SCH ×4 (08:51→22:34)
[2022-01-10] MEDS: HYDROXYUREA 500 MG CAP PO SCH (08:52)
[2022-01-10] MEDS: FLUTICASONE PROPIONATE NA SPR 16 GM BTL SCH (08:52)
[2022-01-10] MEDS: EUCERIN CR 120 GM JAR EXT SCH ×4 (08:52→22:34)
[2022-01-10] MEDS: FAMOTIDINE 20 MG TAB PO SCH (08:52)
[2022-01-10] MEDS: AZELASTINE HCL 0.1% NASAL 200 SPRAYS/27,400 MCG BTL SCH (08:53)
[2022-01-10] MEDS: POLYETHYLENE (MIRALAX) 17 GM PACK PO SCH ×2 (08:53→22:35)
[2022-01-10] MEDS: ALUMINUM/MAGNESIUM/SIMETH (MAALOX MAX) 30 ML UDC PO SCH ×4 (08:56→17:17)
[2022-01-10] MEDS: bisacodyL 5 MG TABEC PO SCH (08:56)
[2022-01-10] MEDS: SODIUM CHLORIDE 0.9% 1000ML 1,000 ML IV SCH (10:55)
[2022-01-11] MEDS: HYDROXYUREA 500 MG CAP PO SCH ×3 (00:07→22:00)
[2022-01-11] MEDS: FAMOTIDINE 20 MG TAB PO SCH ×3 (00:07→22:00)
[2022-01-11] MEDS: FOLIC ACID 1 MG TAB PO SCH ×2 (00:07→22:00)
[2022-01-11] MEDS: MECLIZINE HCL 25 MG TAB PO SCH ×5 (00:07→23:33)
[2022-01-11] MEDS: AZELASTINE HCL 0.1% NASAL 200 SPRAYS/27,400 MCG BTL SCH ×3 (00:08→22:01)
[2022-01-11] MEDS: ALUMINUM/MAGNESIUM/SIMETH (MAALOX MAX) 30 ML UDC PO SCH ×4 (00:08→16:36)
[2022-01-11] MEDS: bisacodyL 5 MG TABEC PO SCH ×3 (00:12→22:01)
[2022-01-11] MEDS: ACETAMINOPHEN 500 MG TAB PO SCH ×3 (00:16→16:39)
--- NOTE | 2022-01-11 00:17 | Billing Data ---
Date of Service January 10, 2022 Coding Level of Care Code 33733 Subseq Hosp Care Lvl 2
[2022-01-11] MEDS: SODIUM CHLORIDE 0.45 % 1,000 ML IV SCH ×3 (01:08→23:36)
[2022-01-11] MEDS: ZOLPIDEM TARTRATE 5 MG TAB PO PRN (01:08)
[2022-01-11] MEDS: EUCERIN CR 120 GM JAR EXT SCH ×3 (10:50→16:34)
[2022-01-11] MEDS: FLUTICASONE PROPIONATE NA SPR 16 GM BTL SCH (10:50)
[2022-01-11] MEDS: ARTIFICIAL TEARS OP OINT 3.5 GM TUBE OP SCH ×3 (10:50→16:34)
[2022-01-11] MEDS: POLYETHYLENE (MIRALAX) 17 GM PACK PO SCH (10:51)
[2022-01-11 11:14] LABS: Hemoglobin 9.1 g/dl (12.0-16.0)
[2022-01-11 11:35] LABS: Anion Gap 4 (3-11); BUN Creatinine Ratio 6.8 (10-20); Blood Urea Nitrogen 3 mg/dl (6-23); Calcium 9.4 mg/dl (8.5-10.1); Carbon Dioxide 29 mmol/L (21-32); Chloride 106 mmol/L (98-107); Creatinine Clr Calc Pharmacy 186.2 ml/min; Est GFR (African American) > 150.0 ml/min; Est GFR (Non-African American) 142.3 ml/min; Glucose 86 mg/dl (70-99(Fasting)); Magnesium 1.5 mg/dl (1.7-2.4); Potassium 4.2 mmol/L (3.5-5.1); Sodium 139 mmol/L (136-145)
[2022-01-11] MEDS: MAGNESIUM SULFATE / D5W 1 GM/100 ML BAG IV SCH ×2 (12:20→15:14)
[2022-01-11] MEDS: fentaNYL 12 MCG/HR TDSY TD SCH (16:33)
[2022-01-11] MEDS: CHECK fentaNYL PATCH PLACEMENT SCH ×2 (16:34→23:33)
--- NOTE | 2022-01-11 16:41 | Hospitalist Progress Note ---
Date of Service January 11, 2022 Assessment & Plan (1) Generalized pain: Plan: Donta Trevizo) is a 20yo female with sickle cell disease and chronic pain who presented to the ER with a three-day history of worsening generalized pain, nausea, and intermittent dizziness, which she describes as similar to prior acute sickle episodes. Now stable and in the process of optimizing pain control. Sickle cell acute pain crisis CXR without acute abnormality, oxygen saturation adequate - no evidence of acute chest syndrome Admission labs notable for anemia (8.6), hyperbilirubinemia (2.0), hsTroponin not elevated; hgb remains stable Etiology likely multifactorial: sickle cell disease acute pain crisis +/- opioid hyperalgesia with viral URI Pain control regimen: APAP 1000mg PO q8h scheduled LITHOGRAPH OPERATOR dilaudid 1mg q1.5h + oxy 5mg q6h prn --> LITHOGRAPH OPERATOR ween down to .075mg q1.5h Continue home fentanyl patch Holding off on NSAIDs given risk of renal injury in setting of hypotension and sickle cell crisis Continue IVF for intravascular volume expansion- 1/2NSS at 80 mL/h. 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 No indication for antibiotics at this time. Incentive spirometry Mucinex, Flonase, Astelin Hypotension, resolved Patient with intermittent hypotension which is not uncommon for her during sickle cell acute pain episodes, in part due to poor PO intake Continue 1/2 NSS @ 80mL/hr Encourage PO intake, continue to monitor, additional IVF boluses as needed Hyperbilirubinemia, resolved Total bilirubin on admission 2.0, LFTs otherwise wnl; likely from hemolysis during acute pain episodes GERD: Hold pantoprazole 40mg IV bid. Cont. famotidine. Constipation: continue home miralax, Dulcolax, maalox daily. Mag citrate out of stock FEN: regular diet, 1/2 NSS 80 ml/hr Code status: DNI/DNR, had lengthy discussion with patient regarding code status decision VTE ppx: SCDs Dispo: med surg (2) Elevated bilirubin: (3) Elevated troponin: (4) Nausea: (5) Sickle cell crisis: (6) Observation following foreign body ingestion: Admission and Anticipated Discharge Date Admission Date: December 21, 2021 Supervising Physician Co-Signing Physician Notes I personally examined the patient and verified all amaro points of history and exam, discussed case, and agree with decision making with Dr. Bailey with the following additions/exceptions: S-Pt reports continues to have pain especially with walking, left hip greater than right and radiating down both legs. We discussed her AVN and subchondral fracture with collapse on the left hip. She is interested in being seen by orthopedic surgery to discuss possible surgical options for her AVN. O- Vitals reviewed Gen: AAOx3 only after loud verbal stimulus and gentle tactile stimulus that she wake up, NAD, flat affect HEENT: Anicteric sclerae, EOMI CV: RRR no mgr nl S1S2 Pulm: CTAB no wcr Abd: +BS soft NT ND no masses or hernias Ext: No edema Skin: No rashes, warm/dry Neuro: Full strength throughout A/P-21 yo female here with acute on chronic pain 2/2 sickle cell crisis. Improving Weaning down Dilaudid LITHOGRAPH OPERATOR pump. Add home fentanyl patch back on Will place Ortho consultation on Friday with Dr. Castrejon who saw her before for AVN hips L>R with fracture left hip Subjective Seen at bedside this morning. Pain stable. Trying to minimize use of oxy. Would like to ween down LITHOGRAPH OPERATOR. Meclizine helping with dizziness. Realized today that fentanyl patch hasn't been changed in ~1 week. BM yesterday. Denies chest pain, sob, N/V, abd pain. Review of Systems Review of Systems: All systems reviewed & are unremarkable except as noted in HPI & below Physical Exam Physical Exam: General: Well-appearing, alert, interactive, and in no acute distress. HEENT: Normocephalic, atraumatic. EOMI. Moist mucosal membranes. Neck: Supple. No lymphadenopathy. CV: RRR. 3/6 systolic murmur. No gallops or rubs. Respiratory: Normal respiratory effort. CTAB. No crackles, rhonchi, or wheezes. Abdomen: Soft, nontender, nondistended abdomen. Extremities: 2+ dp equal bilaterally. No pedal edema. Neuro: Alert and oriented x3. Skin: No rashes, bruises, or erythema. Results & Data Results & Data ([facility]) Vital Signs (Past 12 Hours) Vital Signs Temp Pulse Resp BP BP Pulse Ox O2 Del Method 01/11/22 15:24 37 C 78 18 94/55 L 99 Room Air 01/11/22 12:13 36.6 C 86 18 125/84 100 Room Air 01/11/22 07:54 36.8 C 88 18 106/63 98 Room Air Laboratory Results 01/11/22 01/11/22 Range/Units 10:54 10:54 Hgb 9.1 L (12.0-16.0) g/dl Hct 24.0 L (34.1-44.9) % Sodium 139 (136-145) mmol/L Potassium 4.2 (3.5-5.1) mmol/L Chloride 106 (98-107) mmol/L Carbon Dioxide 29 (21-32) mmol/L Anion Gap 4 (3-11) BUN 3 L (6-23) mg/dl Creatinine 0.44 L (0.6-1.2) mg/dl Est Cr Clr Drug Dosing 186.2 ml/min Est GFR ( Amer) > 150.0 ml/min Est GFR (Non-Af Amer) 142.3 ml/min BUN/Creatinine Ratio 6.8 L (10-20) Glucose 86 (70-99(Fasting)) mg/dl Calcium 9.4 (8.5-10.1) mg/dl Magnesium 1.5 L (1.7-2.4) mg/dl Resident Activity Tracking Resident Involvement: Resident Care Provided Care Provided: Adult Hospital Medicine
[2022-01-11] MEDS: HYDROmorphone PCA 30 MG/30 ML IV PRN (16:55)
[2022-01-11] MEDS ORDERED: ALUMINUM/MAGNESIUM/SIMETH (MAALOX MAX) 30 ML UDC PO PRN (17:30)
[2022-01-11] MEDS ORDERED: EUCERIN CR 120 GM JAR EXT PRN (17:31)
[2022-01-11] MEDS ORDERED: POLYETHYLENE (MIRALAX) 17 GM PACK PO PRN (17:32)
--- NOTE | 2022-01-11 23:45 | Billing Data ---
Date of Service January 11, 2022 Coding Level of Care Code 27588 Subseq Hosp Care Lvl 2
[2022-01-12] MEDS: ACETAMINOPHEN 500 MG TAB PO SCH ×3 (00:47→16:29)
[2022-01-12] MEDS: MECLIZINE HCL 25 MG TAB PO SCH ×4 (05:58→23:05)
--- NOTE | 2022-01-12 07:03 | Hospitalist Progress Note ---
Date of Service January 12, 2022 Assessment & Plan (1) Generalized pain: Plan: Donta Trevizo) is a 20yo female with sickle cell disease and chronic pain who presented to the ER with a three-day history of worsening generalized pain, nausea, and intermittent dizziness, which she describes as similar to prior acute sickle episodes. Now stable and in the process of optimizing pain control. Sickle cell acute pain crisis CXR without acute abnormality, oxygen saturation adequate - no evidence of acute chest syndrome Admission labs notable for anemia (8.6), hyperbilirubinemia (2.0), hsTroponin not elevated; hgb remains stable Etiology likely multifactorial: sickle cell disease acute pain crisis +/- opioid hyperalgesia with viral URI Pain control regimen: APAP 1000mg PO q8h scheduled BUNDLE SORTER dilaudid 0.75mg q1.5h + oxy 5mg q6h prn --> cont. to ween as able Continue home fentanyl patch, replaced yesterday Holding off on NSAIDs given risk of renal injury in setting of hypotension and sickle cell crisis Continue IVF for intravascular volume expansion- 1/2NSS at 80 mL/h. 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 No indication for antibiotics at this time. Incentive spirometry Mucinex, Flonase, Astelin Hypotension, resolved Patient with intermittent hypotension which is not uncommon for her during sickle cell acute pain episodes, in part due to poor PO intake Continue 1/2 NSS @ 80mL/hr Encourage PO intake, continue to monitor, additional IVF boluses as needed Hyperbilirubinemia, resolved Total bilirubin on admission 2.0, LFTs otherwise wnl; likely from hemolysis during acute pain episodes GERD: Hold pantoprazole 40mg IV bid. Cont. famotidine. Constipation: continue home miralax, Dulcolax, maalox daily. Mag citrate out of stock. FEN: regular diet, 1/2 NSS 80 ml/hr Code status: DNI/DNR, had lengthy discussion with patient regarding code status decision VTE ppx: SCDs Dispo: med surg (2) Elevated bilirubin: (3) Elevated troponin: (4) Nausea: (5) Sickle cell crisis: (6) Observation following foreign body ingestion: Admission and Anticipated Discharge Date Admission Date: December 21, 2021 Supervising Physician Co-Signing Physician Notes I personally examined the patient and verified all amaro points of history and exam, discussed case, and agree with decision making with Dr Bailey. Pain reasonable for hernotes right notes ranging between about a 4 and a 7. She does note that the itchiness is still fairly badnotes that there is risk of meclizine and Benadryl together, but after discussion of risk/benefit, she would prefer that we give trial to a low-dose of Benadryl to help with the itching, given that it helps with the itching far more than the meclizine, but the meclizine helps with the dizziness far more than the Benadryl.. Vitals noted, pleasant, nad. Breathing unlabored no accessory muscle use good effort. Skin shows no rashes no pallor or icterus. Neuro without focal defi cits. Sickle cell acute pain crisis-slowly weaning BUNDLE SORTER, after discussion of risk/benefit will initiate Benadryl 25 mg twice daily to help with the itching, she is to alert us with any signs or symptoms of anticholinergic toxicityunlikely at this dosing, but she is aware of the risk/benefit. otherwise as above Subjective Seen at bedside this morning. Pain stable. Minimal use of oxy. Weening down BUNDLE SORTER. Meclizine helping with dizziness. Fentanyl replaced yesterday. BM yesterday. Denies chest pain, sob, N/V, abd pain. Review of Systems Review of Systems: All systems reviewed & are unremarkable except as noted in HPI & below Physical Exam Physical Exam: General: Well-appearing, alert, interactive, and in no acute distress. HEENT: NCAT. EOMI. Moist mucosal membranes. Neck: Supple. No lymphadenopathy. CV: RRR. 3/6 systolic murmur. No gallops or rubs. Respiratory: Normal respiratory effort. CTAB. No crackles, rhonchi, or wheezes. Abdomen: Soft, nontender, nondistended abdomen. Extremities: 2+ dp equal bilaterally. No pedal edema. Neuro: Alert and oriented x3. Skin: No rashes, bruises, or erythema. Results & Data Results & Data ([facility]) Vital Signs (Past 12 Hours) Vital Signs Temp Pulse Resp BP BP Pulse Ox O2 Del Method 01/12/22 04:06 36.6 C 68 14 95/56 L 97 Room Air 01/11/22 23:32 36.5 C 72 14 97/58 L 97 Room Air 01/11/22 19:34 36.7 C 72 14 92/55 L 98 Room Air Laboratory Results 01/11/22 01/11/22 Range/Units 10:54 10:54 Hgb 9.1 L (12.0-16.0) g/dl Hct 24.0 L (34.1-44.9) % Sodium 139 (136-145) mmol/L Potassium 4.2 (3.5-5.1) mmol/L Chloride 106 (98-107) mmol/L Carbon Dioxide 29 (21-32) mmol/L Anion Gap 4 (3-11) BUN 3 L (6-23) mg/dl Creatinine 0.44 L (0.6-1.2) mg/dl Est Cr Clr Drug Dosing 186.2 ml/min Est GFR ( Amer) > 150.0 ml/min Est GFR (Non-Af Amer) 142.3 ml/min BUN/Creatinine Ratio 6.8 L (10-20) Glucose 86 (70-99(Fasting)) mg/dl Calcium 9.4 (8.5-10.1) mg/dl Magnesium 1.5 L (1.7-2.4) mg/dl Resident Activity Tracking Resident Involvement: Resident Care Provided Care Provided: Adult Hospital Medicine
[2022-01-12] MEDS: CHECK fentaNYL PATCH PLACEMENT SCH ×3 (09:28→23:05)
[2022-01-12] MEDS: AZELASTINE HCL 0.1% NASAL 200 SPRAYS/27,400 MCG BTL SCH ×2 (09:29→21:46)
[2022-01-12] MEDS: HYDROXYUREA 500 MG CAP PO SCH ×2 (09:29→21:46)
[2022-01-12] MEDS: FAMOTIDINE 20 MG TAB PO SCH ×2 (09:29→21:47)
[2022-01-12] MEDS: FLUTICASONE PROPIONATE NA SPR 16 GM BTL SCH (09:33)
[2022-01-12] MEDS: bisacodyL 5 MG TABEC PO SCH ×2 (09:33→21:52)
[2022-01-12] MEDS: oxyCODONE HCL IR 5 MG TAB (IMMEDIATE RELEASE) PO PRN (09:45)
[2022-01-12] MEDS: SODIUM CHLORIDE 0.45 % 1,000 ML IV SCH ×2 (11:40→23:05)
[2022-01-12] MEDS: HYDROmorphone PCA 30 MG/30 ML IV PRN (16:50)
--- NOTE | 2022-01-12 18:20 | Billing Data ---
Date of Service January 12, 2022 Coding Level of Care Code 49255 Subseq Hosp Care Lvl 3
[2022-01-12] MEDS: diphenhydrAMINE Capsule 25 MG CAP PO PRN (19:29)
[2022-01-12] MEDS: FOLIC ACID 1 MG TAB PO SCH (21:47)
[2022-01-13] MEDS: ACETAMINOPHEN 500 MG TAB PO SCH ×4 (01:10→23:54)
[2022-01-13] MEDS: MECLIZINE HCL 25 MG TAB PO SCH ×4 (05:24→23:10)
--- NOTE | 2022-01-13 08:14 | Hospitalist Progress Note ---
Date of Service January 13, 2022 Assessment & Plan (1) Generalized pain: Plan: Donta Trevizo) is a 20yo female with sickle cell disease and chronic pain who presented to the ER with a three-day history of worsening generalized pain, nausea, and intermittent dizziness, which she describes as similar to prior acute sickle episodes. Now stable and in the process of optimizing pain control. Sickle cell acute pain crisis CXR without acute abnormality, oxygen saturation adequate - no evidence of acute chest syndrome Admission labs notable for anemia (8.6), hyperbilirubinemia (2.0), hsTroponin not elevated; hgb remains stable Etiology likely multifactorial: sickle cell disease acute pain crisis +/- opioid hyperalgesia with viral URI Pain control regimen: APAP 1000mg PO q8h scheduled D/c'd SAMPLER OVENS. Transitioned to IV 0.75mg q2h prn + oxy 5mg q6h prn Continue home fentanyl patch Holding off on NSAIDs given risk of renal injury in setting of hypotension and sickle cell crisis Continue IVF for intravascular volume expansion- 1/2NSS at 80 mL/h. Continue home hydroxyurea, folate, zofran Meclizine for dizziness, Benadryl for itchiness. Incentive spirometry. 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 No indication for antibiotics at this time. Incentive spirometry Mucinex, Flonase, Astelin Hypotension, resolved Patient with intermittent hypotension which is not uncommon for her during sickle cell acute pain episodes, in part due to poor PO intake Continue 1/2 NSS @ 80mL/hr Encourage PO intake, continue to monitor, additional IVF boluses as needed Hyperbilirubinemia, resolved Total bilirubin on admission 2.0, LFTs otherwise wnl; likely from hemolysis during acute pain episodes GERD: Hold pantoprazole 40mg IV bid. Cont. famotidine. Constipation: continue home miralax, Dulcolax, maalox daily. Mag citrate out of stock. FEN: regular diet, 1/2 NSS 80 ml/hr Code status: DNI/DNR, had lengthy discussion with patient regarding code status decision VTE ppx: SCDs Dispo: med surg (2) Elevated bilirubin: (3) Elevated troponin: (4) Nausea: (5) Sickle cell crisis: (6) Observation following foreign body ingestion: Admission and Anticipated Discharge Date Admission Date: December 21, 2021 Supervising Physician Co-Signing Physician Notes I personally examined the patient and verified all amaro points of history and exam, discussed case, and agree with decision making with Dr Bailey. Trying to wean pain meds. Feels like it is going reasonably well. Notes she really just wants to be on to get out of the hospital and get home. Further discussion about her hipsI reviewed films with her in the room, explained that she definitely appears like a candidate for hip replacement, but there is probably not an urgencylikely would be better whenever she has more time to recover from surgery. No difficulty urinating, no restlessness, feels okay. Vitals noted, pleasant, nad. Breathing unlabored no accessory muscle use good effort. Skin shows no rashes no pallor or icterus. Neuro without focal deficits. Sickle cell acute pain crisis-slowly weaning pain medicines. Continue Benadryl for itching, meclizine for vertigowe have discussed risks/benefits, and thus far showing no side effects, wishes to continue. Hopefully home soon. As far as avascular necrosis of hipsfor total hip replacement, probably in the near future, but likely not when she is in the midst of an acute episode or nearing graduationpossibly as soon as shortly after graduation, however. otherwise as above Subjective Seen at bedside this morning. Pain stable, rates it a 5-10. Minimal use of oxy. Weening down SAMPLER OVENS. Meclizine helping with dizziness. Benadryl helping with itchiness. BM yesterday. Denies chest pain, sob, N/V, abd pain. Review of Systems Review of Systems: All systems reviewed & are unremarkable except as noted in HPI & below Physical Exam Physical Exam: General: Well-appearing, alert, interactive, and in no acute distress. HEENT: NCAT. EOMI. Moist mucosal membranes. Neck: Supple. No lymphadenopathy. CV: RRR. 3/6 systolic murmur. No gallops or rubs. Respiratory: Normal respiratory effort. CTAB. No crackles, rhonchi, or wheezes. Abdomen: Soft, nontender, nondistended abdomen. Extremities: 2+ dp equal bilaterally. No pedal edema. Neuro: AOx3. Skin: No rashes, bruises, or erythema. Results & Data Results & Data ([facility]) Vital Signs (Past 12 Hours) Vital Signs Temp Pulse Resp BP BP Pulse Ox O2 Del Method 01/13/22 07:50 36.8 C 70 16 98/63 L 100 Room Air 01/13/22 02:58 69 14 93/55 L 98 Room Air 01/12/22 21:54 36.4 C L 78 16 94/59 L 96 Room Air Laboratory Results 01/13/22 01/13/22 Range/Units 09:40 09:40 Hgb 9.9 L (12.0-16.0) g/dl Hct 26.3 L (34.1-44.9) % Sodium 139 (136-145) mmol/L Potassium 3.5 (3.5-5.1) mmol/L Chloride 104 (98-107) mmol/L Carbon Dioxide 29 (21-32) mmol/L Anion Gap 6 (3-11) BUN 4 L (6-23) mg/dl Creatinine 0.43 L (0.6-1.2) mg/dl Est Cr Clr Drug Dosing 190.5 ml/min Est GFR ( Amer) > 150.0 ml/min Est GFR (Non-Af Amer) 143.4 ml/min BUN/Creatinine Ratio 9.3 L (10-20) Glucose 84 (70-99(Fasting)) mg/dl Calcium 9.5 (8.5-10.1) mg/dl Magnesium 1.5 L (1.7-2.4) mg/dl Resident Activity Tracking Resident Involvement: Resident Care Provided Care Provided: Adult Hospital Medicine
[2022-01-13] MEDS: AZELASTINE HCL 0.1% NASAL 200 SPRAYS/27,400 MCG BTL SCH ×2 (09:26→21:11)
[2022-01-13] MEDS: CHECK fentaNYL PATCH PLACEMENT SCH ×2 (09:26→15:11)
[2022-01-13] MEDS: HYDROXYUREA 500 MG CAP PO SCH ×2 (09:27→21:11)
[2022-01-13] MEDS: FLUTICASONE PROPIONATE NA SPR 16 GM BTL SCH (09:27)
[2022-01-13] MEDS: FAMOTIDINE 20 MG TAB PO SCH ×2 (09:27→21:12)
[2022-01-13] MEDS: bisacodyL 5 MG TABEC PO SCH ×2 (09:30→21:14)
[2022-01-13 10:14] LABS: Hematocrit (blood only) 26.3 % (34.1-44.9); Hemoglobin 9.9 g/dl (12.0-16.0)
[2022-01-13 10:38] LABS: Anion Gap 6 (3-11); BUN Creatinine Ratio 9.3 (10-20); Blood Urea Nitrogen 4 mg/dl (6-23); Calcium 9.5 mg/dl (8.5-10.1); Carbon Dioxide 29 mmol/L (21-32); Chloride 104 mmol/L (98-107); Creatinine Clr Calc Pharmacy 190.5 ml/min; Est GFR (African American) > 150.0 ml/min; Est GFR (Non-African American) 143.4 ml/min; Glucose 84 mg/dl (70-99(Fasting)); Magnesium 1.5 mg/dl (1.7-2.4); Potassium 3.5 mmol/L (3.5-5.1); Sodium 139 mmol/L (136-145)
[2022-01-13] MEDS: SODIUM CHLORIDE 0.45 % 1,000 ML IV SCH ×2 (11:21→21:15)
[2022-01-13] MEDS: oxyCODONE HCL IR 5 MG TAB (IMMEDIATE RELEASE) PO PRN (11:49)
[2022-01-13] MEDS: MAGNESIUM SULFATE / D5W 1 GM/100 ML BAG IV SCH ×2 (11:50→13:54)
[2022-01-13] MEDS: HYDROmorphone INJ 0.5 MG/0.5 ML SYR IV PRN ×5 (13:01→21:47)
[2022-01-13] MEDS: diphenhydrAMINE Capsule 25 MG CAP PO PRN (16:01)
--- NOTE | 2022-01-13 19:10 | Billing Data ---
Date of Service January 13, 2022 Coding Level of Care Code 25952 Subseq Hosp Care Lvl 3
[2022-01-13] MEDS: FOLIC ACID 1 MG TAB PO SCH (21:11)
[2022-01-14] MEDS: HYDROmorphone INJ 0.5 MG/0.5 ML SYR IV PRN ×10 (00:01→21:33)
[2022-01-14] MEDS: CHECK fentaNYL PATCH PLACEMENT SCH ×3 (00:01→16:30)
[2022-01-14] MEDS: diphenhydrAMINE 50 MG/ML VIAL IV PRN ×2 (04:21→16:36)
[2022-01-14] MEDS: MECLIZINE HCL 25 MG TAB PO SCH ×3 (06:21→18:42)
--- NOTE | 2022-01-14 07:06 | Hospitalist Progress Note ---
Date of Service January 14, 2022 Assessment & Plan (1) Generalized pain: Plan: Donta Trevizo) is a 20yo female with sickle cell disease and chronic pain who presented to the ER with a three-day history of worsening generalized pain, nausea, and intermittent dizziness, which she describes as similar to prior acute sickle episodes. Now stable and in the process of optimizing pain control. Sickle cell acute pain crisis CXR without acute abnormality, oxygen saturation adequate - no evidence of acute chest syndrome Admission labs notable for anemia (8.6), hyperbilirubinemia (2.0), hsTroponin not elevated; hgb remains stable Etiology likely multifactorial: sickle cell disease acute pain crisis +/- opioid hyperalgesia with viral URI Pain control regimen: APAP 1000mg PO q8h scheduled D/c'd SPINNING FRAME TENDER. Transitioned to IV 0.5mg q2h prn + home dose morphine 15mg po tid scheduled Continue home fentanyl patch Holding off on NSAIDs given risk of renal injury in setting of hypotension and sickle cell crisis Continue IVF for intravascular volume expansion- 1/2NSS at 80 mL/h. Continue home hydroxyurea, folate, zofran Meclizine for dizziness, Benadryl for itchiness. Incentive spirometry. 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 No indication for antibiotics at this time. Incentive spirometry Mucinex, Flonase, Astelin Hypotension, resolved Patient with intermittent hypotension which is not uncommon for her during sickle cell acute pain episodes, in part due to poor PO intake Continue 1/2 NSS @ 80mL/hr Encourage PO intake, continue to monitor, additional IVF boluses as needed Hyperbilirubinemia, resolved Total bilirubin on admission 2.0, LFTs otherwise wnl; likely from hemolysis during acute pain episodes GERD: Hold pantoprazole 40mg IV bid. Cont. famotidine. Constipation: continue home miralax, Dulcolax, maalox daily. Mag citrate out of stock. FEN: regular, 1/2 NSS 80 ml/hr Code status: DNI/DNR, had lengthy discussion with patient regarding code status decision VTE ppx: SCDs Dispo: med surg (2) Elevated bilirubin: (3) Elevated troponin: (4) Nausea: (5) Sickle cell crisis: (6) Observation following foreign body ingestion: Admission and Anticipated Discharge Date Admission Date: December 21, 2021 Supervising Physician Co-Signing Physician Notes Attending attestation Pt seen and examined in concert with Dr. Bailey. In agreement with the documented findings as noted in the resident documentation with any exceptions or additions as noted here. Pain is tolerable on present medication regimen, patient requests ongoing taper in order to facilitate discharge, despite ongoing pain. VS, nursing notes, imaging and lab studies reviewed. On examination, S1/S2 nl RRR no MCG. CTAB. Abd NT/ND BS+ve Sickle cell disease w/ acute pain crisis in the setting of chronic pain - continue downtitration of dilaudid to 0.5mg q2H PRN, add home morphine 15mg TID PO. Continue APAP and fentanyl patch. Else see resident documentation as noted. Subjective Seen at bedside this morning. Pain stable, rates it a 5-10. Minimal use of oxy. Off SPINNING FRAME TENDER. Meclizine helping with dizziness. Benadryl helping with itchiness. BM yesterday. Denies chest pain, sob, N/V, abd pain. Review of Systems Review of Systems: All systems reviewed & are unremarkable except as noted in HPI & below Physical Exam Physical Exam: General: Well-appearing, alert, interactive, and in no acute distress. HEENT: NCAT. EOMI. Moist mucosal membranes. Neck: Supple. No lymphadenopathy. CV: RRR. 3/6 systolic murmur. No gallops or rubs. Respiratory: Normal respiratory effort. CTAB. No crackles, rhonchi, or wheezes. Abdomen: Soft, nontender, nondistended abdomen. Extremities: 2+ dp equal bilaterally. No pedal edema. Neuro: AOx3. Skin: No rashes, bruises, or erythema. Results & Data Results & Data ([facility]) Vital Signs (Past 12 Hours) Vital Signs Temp Pulse Resp BP Pulse Ox O2 Del Method 01/13/22 21:09 36.8 C 73 16 102/67 99 Room Air Resident Activity Tracking Resident Involvement: Resident Care Provided Care Provided: Adult [facility]
[2022-01-14] MEDS: FLUTICASONE PROPIONATE NA SPR 16 GM BTL SCH (09:01)
[2022-01-14] MEDS: FAMOTIDINE 20 MG TAB PO SCH ×2 (09:01→21:32)
[2022-01-14] MEDS: AZELASTINE HCL 0.1% NASAL 200 SPRAYS/27,400 MCG BTL SCH ×2 (09:01→21:31)
[2022-01-14] MEDS: ACETAMINOPHEN 500 MG TAB PO SCH ×2 (09:04→17:31)
[2022-01-14] MEDS: bisacodyL 5 MG TABEC PO SCH ×2 (10:56→21:36)
[2022-01-14] MEDS: SODIUM CHLORIDE 0.45 % 1,000 ML IV SCH (12:57)
[2022-01-14] MEDS: HYDROXYUREA 500 MG CAP PO SCH ×2 (16:34→18:31)
[2022-01-14] MEDS: fentaNYL 12 MCG/HR TDSY TD SCH (16:40)
[2022-01-14] MEDS: MoRPHine SULFATE IR 15 MG TAB (IMMEDIATE RELEASE) PO SCH (21:32)
[2022-01-14] MEDS: FOLIC ACID 1 MG TAB PO SCH (21:32)
[2022-01-15] MEDS: SODIUM CHLORIDE 0.45 % 1,000 ML IV SCH ×3 (00:03→23:35)
[2022-01-15] MEDS: CHECK fentaNYL PATCH PLACEMENT SCH ×4 (00:03→23:50)
[2022-01-15] MEDS: MECLIZINE HCL 25 MG TAB PO SCH ×5 (00:04→23:31)
[2022-01-15] MEDS: ACETAMINOPHEN 500 MG TAB PO SCH ×4 (00:05→23:31)
[2022-01-15] MEDS: HYDROmorphone INJ 0.5 MG/0.5 ML SYR IV PRN ×9 (01:23→23:31)
[2022-01-15] MEDS: diphenhydrAMINE 50 MG/ML VIAL IV PRN ×2 (04:48→17:02)
--- NOTE | 2022-01-15 07:00 | Hospitalist Progress Note ---
Date of Service January 15, 2022 Assessment & Plan (1) Generalized pain: Plan: Donta Trevizo) is a 20yo female with sickle cell disease and chronic pain who presented to the ER with a three-day history of worsening generalized pain, nausea, and intermittent dizziness, which she describes as similar to prior acute sickle episodes. Now stable and in the process of optimizing pain control. Sickle cell acute pain crisis CXR without acute abnormality, oxygen saturation adequate - no evidence of acute chest syndrome Admission labs notable for anemia (8.6), hyperbilirubinemia (2.0), hsTroponin not elevated; hgb remains stable Etiology likely multifactorial: sickle cell disease acute pain crisis +/- opioid hyperalgesia with viral URI Pain control regimen: APAP 1000mg PO q8h scheduled D/c'd CORN GROWER. Cont. IV 0.5mg q2h prn + home dose morphine 15mg po tid scheduled Continue home fentanyl patch Holding off on NSAIDs given risk of renal injury in setting of hypotension and sickle cell crisis Continue IVF for intravascular volume expansion- 1/2NSS at 80 mL/h. Continue home hydroxyurea, folate, zofran Meclizine for dizziness, Benadryl for itchiness. Incentive spirometry. 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 No indication for antibiotics at this time. Incentive spirometry Mucinex, Flonase, Astelin Hypotension, resolved Patient with intermittent hypotension which is not uncommon for her during sickle cell acute pain episodes, in part due to poor PO intake Continue 1/2 NSS @ 80mL/hr Encourage PO intake, continue to monitor, additional IVF boluses as needed Hyperbilirubinemia, resolved Total bilirubin on admission 2.0, LFTs otherwise wnl; likely from hemolysis during acute pain episodes GERD: Hold pantoprazole 40mg IV bid. Cont. famotidine. Constipation: continue home miralax, Dulcolax, maalox daily. Mag citrate out of stock. FEN: regular, 1/2 NSS 80 ml/hr Code status: DNI/DNR, had lengthy discussion with patient regarding code status decision VTE ppx: SCDs Dispo: med surg (2) Elevated bilirubin: (3) Elevated troponin: (4) Nausea: (5) Sickle cell crisis: (6) Observation following foreign body ingestion: Admission and Anticipated Discharge Date Admission Date: December 21, 2021 Supervising Physician Co-Signing Physician Notes Attending attestation Pt seen and examined in concert with Dr. Bailey. In agreement with the documented findings as noted in the resident documentation with any exceptions or additions as noted here. Patient appears much more well rested and interactive today. Reports improved pain control on PO morphine regimen atop fentanyl patch. VS, nursing notes, imaging and lab studies reviewed. On examination, S1/S2 nl RRR no MCG. CTAB. Abd NT/ND BS+ve Sickle cell disease w/ acute pain crisis in the setting of chronic pain - downtitrate dilaudid to 0.25mg q2H PRN, continue morphine 15mg TID PO. Continue APAP and fentanyl patch. Likely dispo in AM Else see resident documentation as noted. Subjective Seen at bedside this morning. Pain stable, rates it a 5/10. Minimal use of oxy. Off CORN GROWER. Meclizine helping with dizziness. Benadryl helping with itchiness. BM yesterday. Denies chest pain, sob, N/V, abd pain. Review of Systems Review of Systems: All systems reviewed & are unremarkable except as noted in HPI & below Physical Exam Physical Exam: General: Well-appearing, alert, interactive, and in no acute distress. HEENT: NCAT. EOMI. Moist mucosal membranes. Neck: Supple. No lymphadenopathy. CV: RRR. 3/6 systolic murmur. No gallops or rubs. Respiratory: Normal respiratory effort. CTAB. No crackles, rhonchi, or wheezes. Abdomen: Soft, nontender, nondistended abdomen. Extremities: 2+ dp equal bilaterally. No pedal edema. Neuro: AOx3. Skin: No rashes, bruises, or erythema. Results & Data Results & Data ([facility]) Vital Signs (Past 12 Hours) Vital Signs Temp Pulse Resp BP Pulse Ox O2 Del Method 01/14/22 21:30 Room Air 01/15/22 00:25 36.8 C 75 16 92/56 L 98 Room Air Laboratory Results 01/15/22 01/15/22 Range/Units 09:47 09:47 Hgb 10.0 L (12.0-16.0) g/dl Hct 26.2 L (34.1-44.9) % Sodium 137 (136-145) mmol/L Potassium 3.9 (3.5-5.1) mmol/L Chloride 103 (98-107) mmol/L Carbon Dioxide 28 (21-32) mmol/L Anion Gap 6 (3-11) BUN 6 (6-23) mg/dl Creatinine 0.47 L (0.6-1.2) mg/dl Est Cr Clr Drug Dosing 174.3 ml/min Est GFR ( Amer) > 150.0 ml/min Est GFR (Non-Af Amer) 139.2 ml/min BUN/Creatinine Ratio 12.8 (10-20) Glucose 114 H (70-99(Fasting)) mg/dl Calcium 9.5 (8.5-10.1) mg/dl Magnesium 1.4 L (1.7-2.4) mg/dl Resident Activity Tracking Resident Involvement: Resident Care Provided Care Provided: Adult [facility]
[2022-01-15] MEDS: FAMOTIDINE 20 MG TAB PO SCH ×2 (08:08→20:48)
[2022-01-15] MEDS: AZELASTINE HCL 0.1% NASAL 200 SPRAYS/27,400 MCG BTL SCH ×2 (08:09→20:47)
[2022-01-15] MEDS: bisacodyL 5 MG TABEC PO SCH ×2 (08:09→20:47)
[2022-01-15] MEDS: HYDROXYUREA 500 MG CAP PO SCH ×2 (08:09→20:47)
[2022-01-15] MEDS: FLUTICASONE PROPIONATE NA SPR 16 GM BTL SCH (08:10)
[2022-01-15] MEDS: MoRPHine SULFATE IR 15 MG TAB (IMMEDIATE RELEASE) PO SCH ×3 (08:12→20:47)
[2022-01-15 10:38] LABS: Anion Gap 6 (3-11); BUN Creatinine Ratio 12.8 (10-20); Blood Urea Nitrogen 6 mg/dl (6-23); Calcium 9.5 mg/dl (8.5-10.1); Carbon Dioxide 28 mmol/L (21-32); Chloride 103 mmol/L (98-107); Creatinine Clr Calc Pharmacy 174.3 ml/min; Est GFR (African American) > 150.0 ml/min; Est GFR (Non-African American) 139.2 ml/min; Glucose 114 mg/dl (70-99(Fasting)); Magnesium 1.4 mg/dl (1.7-2.4); Potassium 3.9 mmol/L (3.5-5.1); Sodium 137 mmol/L (136-145)
[2022-01-15 10:48] LABS: Hematocrit (blood only) 26.2 % (34.1-44.9)
[2022-01-15] MEDS: MAGNESIUM SULFATE / D5W 1 GM/100 ML BAG IV SCH ×2 (11:30→13:15)
[2022-01-15] MEDS: FOLIC ACID 1 MG TAB PO SCH (20:47)
[2022-01-16] MEDS: HYDROmorphone INJ 0.5 MG/0.5 ML SYR IV PRN ×5 (03:43→17:31)
[2022-01-16] MEDS: diphenhydrAMINE 50 MG/ML VIAL IV PRN ×2 (04:58→17:39)
[2022-01-16] MEDS: MECLIZINE HCL 25 MG TAB PO SCH ×3 (05:00→17:33)
--- NOTE | 2022-01-16 07:51 | Hospitalist Progress Note ---
Date of Service January 16, 2022 Assessment & Plan (1) Generalized pain: Plan: Donta Trevizo) is a 20yo female with sickle cell disease and chronic pain who presented to the ER with a three-day history of worsening generalized pain, nausea, and intermittent dizziness, which she describes as similar to prior acute sickle episodes. Now stable and in the process of optimizing pain control. Sickle cell acute pain crisis CXR without acute abnormality, oxygen saturation adequate - no evidence of acute chest syndrome Admission labs notable for anemia (8.6), hyperbilirubinemia (2.0), hsTroponin not elevated; hgb remains stable Etiology likely multifactorial: sickle cell disease acute pain crisis +/- opioid hyperalgesia with viral URI Pain control regimen: APAP 1000mg PO q8h scheduled D/c'd [employer]. Cont. IV 0.5mg q2h prn + home dose morphine 15mg po tid scheduled Continue home fentanyl patch Holding off on NSAIDs given risk of renal injury in setting of hypotension and sickle cell crisis Continue IVF for intravascular volume expansion- 1/2NSS at 80 mL/h. Continue home hydroxyurea, folate, zofran Meclizine for dizziness, Benadryl for itchiness. Incentive spirometry. 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 No indication for antibiotics at this time. Incentive spirometry Mucinex, Flonase, Astelin Hypotension, resolved Patient with intermittent hypotension which is not uncommon for her during sickle cell acute pain episodes, in part due to poor PO intake Continue 1/2 NSS @ 80mL/hr Encourage PO intake, continue to monitor, additional IVF boluses as needed Hyperbilirubinemia, resolved Total bilirubin on admission 2.0, LFTs otherwise wnl; likely from hemolysis during acute pain episodes GERD: Hold pantoprazole 40mg IV bid. Cont. famotidine. Constipation: continue home miralax, Dulcolax, maalox daily. Mag citrate out of stock. FEN: regular, 1/2 NSS 80 ml/hr Code status: DNI/DNR, had lengthy discussion with patient regarding code status decision VTE ppx: SCDs Dispo: med surg (2) Elevated bilirubin: (3) Elevated troponin: (4) Nausea: (5) Sickle cell crisis: (6) Observation following foreign body ingestion: Admission and Anticipated Discharge Date Admission Date: December 21, 2021 Subjective Seen at bedside this morning. Pain stable, rates it a 5/10. Minimal use of oxy. Off [employer] SCRE[employer]. Meclizine helping with dizziness. Benadryl helping with itchiness. BM yesterday. Denies chest pain, sob, N/V, abd pain. Physical Exam Physical Exam: General: Well-appearing, alert, interactive, and in no acute distress. HEENT: NCAT. EOMI. Moist mucosal membranes. Neck: Supple. No lymphadenopathy. CV: RRR. 3/6 systolic murmur. No gallops or rubs. Respiratory: Normal respiratory effort. CTAB. No crackles, rhonchi, or wheezes. Abdomen: Soft, nontender, nondistended abdomen. Extremities: 2+ dp equal bilaterally. No pedal edema. Neuro: AOx3. Skin: No rashes, bruises, or erythema. Results & Data Results & Data ([facility]) Vital Signs (Past 12 Hours) Vital Signs Temp Pulse Resp BP Pulse Ox O2 Del Method 01/15/22 20:50 36.8 C 87 16 98/66 L 98 Room Air
[2022-01-16] MEDS: CHECK fentaNYL PATCH PLACEMENT SCH ×2 (07:57→17:32)
[2022-01-16] MEDS: MoRPHine SULFATE IR 15 MG TAB (IMMEDIATE RELEASE) PO SCH ×2 (07:57→13:43)
[2022-01-16] MEDS: HYDROXYUREA 500 MG CAP PO SCH (07:58)
[2022-01-16] MEDS: FAMOTIDINE 20 MG TAB PO SCH (07:58)
[2022-01-16] MEDS: FLUTICASONE PROPIONATE NA SPR 16 GM BTL SCH (07:59)
[2022-01-16] MEDS: AZELASTINE HCL 0.1% NASAL 200 SPRAYS/27,400 MCG BTL SCH (08:00)
[2022-01-16] MEDS: bisacodyL 5 MG TABEC PO SCH (08:05)
[2022-01-16] MEDS: ACETAMINOPHEN 500 MG TAB PO SCH ×2 (08:05→17:38)
[2022-01-16] MEDS: SODIUM CHLORIDE 0.45 % 1,000 ML IV SCH ×2 (12:05→17:33)
--- NOTE | 2022-01-16 15:12 | Discharge Summary ---
Date of Service January 16, 2022 Admission HPI Per Admitting Provider Donta Trevizo) is a 20yo female with sickle cell disease and chronic pain who presented to the ER with a three-day history of worsening generalized pain, nausea, and intermittent dizziness, which she describes as similar to prior acute sickle episodes. Patient's sickle cell pain has been well-controlled over the past 1-2 months with fentanyl patches and oral morphine; however, her pain has been worsening for the past few days despite adherence to her pain regimen. Patient denies recent pain med overuse. Patient denies fever, chills, palpitations, SOB, vomiting, diarrhea, dysuria, numbness, tingling, weakness, or other symptoms. No recent travel or sick contacts. Upon arrival, vitals were notable for soft BP (90-100s/50s); no tachycardia, no tachypnea, patient afebrile, spO2 adequate on room air. Initial labs were notable for mild anemia (8.6) and elevated total bilirubin (2.0); platelets wnl, no electrolyte abnormalities, creatinine not elevated, LFTs wnl, covid PCR negative. Of note, initial hsTroponin was elevated to the 200s, but a two-hour repeat was wnl (4.1). In the ED, patient received dilaudid IV 0.5mg (x1), NSS 1L bolus (x2), and metoclopramide IV 10mg (x1). EKG: NSR, no overt ischemic change Imaging: CXR: no acute findings upon my read (official over-read pending) CT head: no ICH, mass effect, edema, or evidence of acute stroke CTA head/neck: no acute intracranial arterial occlusion CT abdomen/pelvis: mild diffuse bladder wall thickening, trace free fluid, no hydronephrosis, left femoral head with evidence of avascular necrosis Principal Diagnosis sickle cell crisis Discharge Exam General: Well-appearing, alert, interactive, and in no acute distress. HEENT: NCAT. EOMI. Moist mucosal membranes. Neck: Supple. No lymphadenopathy. CV: RRR. 3/6 systolic murmur. No gallops or rubs. Respiratory: Normal respiratory effort. CTAB. No crackles, rhonchi, or wheezes. Abdomen: Soft, nontender, nondistended abdomen. Extremities: 2+ dp equal bilaterally. No pedal edema. Neuro: AOx3. Skin: No rashes, bruises, or erythema. Discharge Data Allergies Allergy/AdvReac Type Severity Reaction Status Date / Time adhesive Allergy Intermediate Blister Verified 12/21/21 00:44 Consultations 12/20/21 23:27 ED Decision to Admit Stat Ordered Studies Laboratory Results WBC 4.01 K/ul (4.8-10.8) L 01/05/22 08:47 RBC 2.08 M/uL (3.93-5.22) L 01/05/22 08:47 Hgb 10.0 g/dl (12.0-16.0) L 01/15/22 09:47 Hct 26.2 % (34.1-44.9) L 01/15/22 09:47 MCV 108.7 fL (80.0-100.0) H 01/05/22 08:47 MCH 40.9 pg (25.0-34.0) H 01/05/22 08:47 MCHC 37.6 g/dL (32.0-36.0) H 01/05/22 08:47 RDW Std Deviation 73.0 fL (36.4-46.3) H 01/05/22 08:47 RDW Coeff of Nando 17.7 % (11.5-14.5) H 01/05/22 08:47 Plt Count 563 K/uL (130-400) H 01/05/22 08:47 MPV 9.4 fL (9.4-12.3) 01/05/22 08:47 Immature Gran % (Auto) 0.2 % 01/05/22 08:47 Neut % (Auto) 45.0 % 01/05/22 08:47 Lymph % (Auto) 44.1 % 01/05/22 08:47 [place] % (Auto) 7.5 % 01/05/22 08:47 Eos % (Auto) 3.0 % 01/05/22 08:47 Baso % (Auto) 0.2 % 01/05/22 08:47 Reticulocyte % (Auto) 6.2 % (0.5-2.0) H 12/20/21 21:08 Neut # (Auto) 1.80 K/uL (1.4-6.5) 01/05/22 08:47 Lymph # (Auto) 1.77 K/uL (1.2-3.4) 01/05/22 08:47 [place] # (Auto) 0.30 K/uL (0.24-0.82) 01/05/22 08:47 Eos # (Auto) 0.12 K/uL (0-0.50) 01/05/22 08:47 Baso # (Auto) 0.01 K/uL (0-0.2) 01/05/22 08:47 Reticulocyte # 0.13 10^6/uL (0.02-0.10) H 12/20/21 21:08 Immature Gran # (Auto) 0.01 K/uL (0.00-0.02) 01/05/22 08:47 Absolute Nucleated RBC 0.14 K/uL (0-0) H 01/05/22 08:47 Nucleated RBC % (auto) 3.5 % 01/05/22 08:47 Neutrophils % (Manual) 54 % 01/03/22 07:32 Band Neutrophils % Cancelled 12/20/21 20:15 Lymphocytes % (Manual) 42 % 01/03/22 07:32 Prolymphocyte % Cancelled 12/20/21 20:15 Reactive Lymphs % (Man) Cancelled 12/20/21 20:15 Monocytes % (Manual) 2 % 01/03/22 07:32 Eosinophils % (Manual) 2 % 01/03/22 07:32 Basophils % (Manual) Cancelled 12/20/21 20:15 Metamyelocytes % (Man) Cancelled 12/20/21 20:15 Myelocytes % (Man) Cancelled 12/20/21 20:15 Promyelocytes % (Man) Cancelled 12/20/21 20:15 Blast Cells % (Manual) 1 % 01/03/22 07:32 Plasma Cell % (Manual) Cancelled 12/20/21 20:15 Other Cells % Cancelled 12/20/21 20:15 Nucleated RBC % Cancelled 12/20/21 20:15 Neutrophils # (Manual) 2.84 K/uL (1.4-6.5) 01/03/22 07:32 Band Neutrophils # Cancelled 12/20/21 20:15 Total Absolute Neuts Cancelled 12/20/21 20:15 Lymphocytes # (Manual) 2.21 K/uL (1.2-3.4) 01/03/22 07:32 Prolymphocyte # Cancelled 12/20/21 20:15 Reactive Lymphs # Cancelled 12/20/21 20:15 Total Abs Lymphocytes Cancelled 12/20/21 20:15 Monocytes # (Manual) 0.11 K/uL (0.24-0.82) L 01/03/22 07:32 Eosinophils # (Manual) 0.11 K/uL (0-0.50) 01/03/22 07:32 Basophils # (Manual) Cancelled 12/20/21 20:15 Metamyelocytes # (Man) Cancelled 12/20/21 20:15 Myelocytes # (Manual) Cancelled 12/20/21 20:15 Promyelocytes # (Man) Cancelled 12/20/21 20:15 Blast Cells # (Man) 0.05 K/uL (0-0) H 01/03/22 07:32 Plasma Cell # (Manual) Cancelled 12/20/21 20:15 Other Cells # Cancelled 12/20/21 20:15 Nucleated RBCs # (Man) Cancelled 12/20/21 20:15 Hypersegmented Neuts Cancelled 12/20/21 20:15 Hyposegmented Neuts Cancelled 12/20/21 20:15 Hypogranular Neuts Cancelled 12/20/21 20:15 Large Granular Lymphs Cancelled 12/20/21 20:15 # Lrg Granular Lymphs Cancelled 12/20/21 20:15 Hairy Cells Cancelled 12/20/21 20:15 Smudge Cells Cancelled 12/20/21 20:15 Blood Smear Review 01/03/22 07:32 Toxic Granulation Cancelled 12/20/21 20:15 Toxic Vacuolation Cancelled 12/20/21 20:15 Dohle Bodies Cancelled 12/20/21 20:15 Coral Rods Cancelled 12/20/21 20:15 Platelet Estimate Cancelled 12/20/21 20:15 Hypogranular Platelets Cancelled 12/20/21 20:15 Clumped Platelets Cancelled 12/20/21 20:15 Giant Platelets Cancelled 12/20/21 20:15 Platelet Satelliting Cancelled 12/20/21 20:15 RBC Morphology Cancelled 12/20/21 20:15 Hypochromasia Cancelled 12/20/21 20:15 Polychromasia 2+ 01/05/22 08:47 Poikilocytosis Cancelled 12/20/21 20:15 Basophilic Stippling Cancelled 12/20/21 20:15 Anisocytosis Cancelled 12/20/21 20:15 Microcytosis Cancelled 12/20/21 20:15 Macrocytosis Present 01/05/22 08:47 Spherocytes Cancelled 12/20/21 20:15 Pappenheimer Bodies Cancelled 12/20/21 20:15 Ovalocytes Cancelled 12/20/21 20:15 Sickle Cells 1+ 01/05/22 08:47 Target Cells 2+ 01/05/22 08:47 Stomatocytes Cancelled 12/20/21 20:15 Tear Drop Cells 1+ 01/05/22 08:47 Booth-Lumpkin Bodies Cancelled 12/20/21 20:15 Echinocytes Cancelled 12/20/21 20:15 Acanthocytes (Spur) Cancelled 12/20/21 20:15 Rouleaux Cancelled 12/20/21 20:15 RBC Agglutinates Cancelled 12/20/21 20:15 Schistocytes Cancelled 12/20/21 20:15 Sezary Cell Cancelled 12/20/21 20:15 Sodium 137 mmol/L (136-145) 01/15/22 09:47 Potassium 3.9 mmol/L (3.5-5.1) 01/15/22 09:47 Chloride 103 mmol/L (98-107) 01/15/22 09:47 Carbon Dioxide 28 mmol/L (21-32) 01/15/22 09:47 Anion Gap 6 (3-11) 01/15/22 09:47 BUN 6 mg/dl (6-23) 01/15/22 09:47 Creatinine 0.47 mg/dl (0.6-1.2) L 01/15/22 09:47 Est Cr Clr Drug Dosing 174.3 ml/min 01/15/22 09:47 Est GFR ( Amer) > 150.0 ml/min 01/15/22 09:47 Est GFR (Non-Af Amer) 139.2 ml/min 01/15/22 09:47 BUN/Creatinine Ratio 12.8 (10-20) 01/15/22 09:47 Glucose 114 mg/dl (70-99(Fasting)) H 11/29/22 09:47 Fasting Glucose 81 mg/dl (70-99) 01/05/22 08:47 Calcium 9.5 mg/dl (8.5-10.1) 01/15/22 09:47 Magnesium 1.4 mg/dl (1.7-2.4) L 01/15/22 09:47 Total Bilirubin 1.0 mg/dl (0.2-1.0) 01/05/22 08:47 AST 29 U/L (13-39) 01/05/22 08:47 ALT 22 U/L (7-52) 01/05/22 08:47 Alkaline Phosphatase 56 U/L (34-104) 01/05/22 08:47 Lactate Dehydrogenase 214 U/L (86-244) 12/20/21 23:27 Troponin I High Sens 4.1 pg/ml (0-14) D 12/20/21 23:27 C-Reactive Protein 1.09 mg/dl (0-0.5) H 12/28/21 06:30 Total Protein 7.3 gm/dl (6.0-8.3) 01/05/22 08:47 Albumin 3.9 gm/dl (3.4-5.0) 01/05/22 08:47 Globulin 3.4 gm/dl (2.5-4.0) 01/05/22 08:47 Albumin/Globulin Ratio 1.1 (0.9-2) 01/05/22 08:47 Vitamin B12 472 pg/ml (180-914) 12/31/21 08:27 Folate > 22.30 ng/ml (>5.38) 12/31/21 08:27 TSH 2.076 uIu/ml (0.300-4.500) 12/20/21 20:15 HCG, Qual Negative (Negative) 12/20/21 21:09 Urine Color Elaine 12/20/21 20:20 Urine Appearance Clear (Clear) 12/20/21 20:20 Urine pH 7.0 (4.5-7.5) 12/20/21 20:20 Ur Specific [place] 1.005 (1.000-1.030) 12/20/21 20:20 Urine Protein Negative (Negative) 12/20/21 20:20 Urine Glucose (UA) Negative (Negative) 12/20/21 20:20 Urine Ketones Negative (Negative) 12/20/21 20:20 Urine Blood Negative (Negative) 12/20/21 20:20 Urine Nitrite Negative (Negative) 12/20/21 20:20 Urine Bilirubin Negative (Negative) 12/20/21 20:20 Urine Urobilinogen Negative (Negative) 12/20/21 20:20 Ur Leukocyte Esterase Negative (Negative) 12/20/21 20:20 POC Ur Test NEG (NEG) 12/20/21 22:11 SARS-CoV-2 (PCR) NEGATIVE (Negative) 12/20/21 22:05 Influenza Type A (PCR) Negative (Neg) 12/20/21 22:05 Influ A Molecular Assay Negative (Negative) 12/26/21 09:30 Influenza Type B (PCR) Negative (Neg) 12/20/21 22:05 Influ B Molecular Assay Negative (Negative) 12/26/21 09:30 RSV (RT-PCR) Negative (Neg) 12/20/21 22:05 Blood Parasites ID Cancelled 12/20/21 20:15 Blood Type B Positive 12/21/21 03:40 Antibody Screen NEGATIVE 12/21/21 03:[address] 12/20/21 21:[address] DOSE: HISTORY: dizzy, sickle cell TECHNIQUE: Multiaxial CT images of the head were performed without the use of intravenous contrast. Automated exposure control was utilized for this study. A dose lowering technique was utilized adhering to the principles of ALARA. Comparison: Head CT 06/15/2021. Findings: The paranasal sinuses and mastoid air cells are clear. The calvarium and skull base are intact. The ventricles and sulci are within normal limits. There is no mass, hematoma, midline shift, or acute infarct. Impression: No acute intracranial abnormality. ACT 112: Negative or not required by law. Electronically signed by: Cortes Fletcher M.D. 12/21/2021 7:05 AM Abdomen/Pelvis CT 12/20/21 22:[address] WITH IV CONTRAST CT DOSE: 1558.36 mGy.cm HISTORY: Generalized abdominal pain. severe abd pain, sickle cell crisis TECHNIQUE: Multiaxial CT images of the abdomen and pelvis were performed following the use of intravenous contrast. A dose lowering technique was utilized adhering to the principles of ALARA. COMPARISON STUDY: Abdomen and pelvis CT 10/31/2020. FINDINGS: Endplate deformities seen throughout the spine consistent the patient's history of sickle cell disease. 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 This is likely chronic. Additional patchy areas of sclerosis within the pelvis and sacrum consistent with areas of avascular necrosis. This remains unchanged. Mild dependent changes seen within the left lung base. The heart is mildly enlarged. The liver, gallbladder, pancreas, adren al glands, and kidneys are unremarkable. Normal caliber abdominal aorta. No retroperitoneal lymphadenopathy. Mild bladder wall thickening. The uterus and ovaries are unremarkable. Endometrium measures 1.3 cm in thickness. This is considered top normal for age. Trace pelvic free fluid. Moderate well-formed stool seen throughout the colon. No bowel wall thickening or obstruction. Normal appendix. The major mesenteric vessels appear patent. IMPRESSION: 1. Bladder wall thickening. This may represent a cystitis. Recommend correlation with urinalysis. 2. Avascular necrosis of the bilateral femoral heads with a progressive subchondral fracture left femoral head. This is likely chronic. 3. Trace pelvic free fluid. This is likely physiologic. 4. No bowel wall thickening or obstruction. 5. Normal appendix. 6. Additional findings as described above. ACT 112: Negative or not required by law. Electronically signed by: Cortes Fletcher M.D. 12/21/2021 7:31 AM Head CTA 12/20/21 22:03 CT angio head w con CLINICAL HISTORY: 21 years-old Female with dizzy, pain, sickle cell crisis. Acute dizziness with headache COMPARISON STUDY: Head CT of same day TECHNIQUE: Following the IV administration of 111 cc of Optiray, CT angiogram of the brain was performed from the skull base to the vertex. Images are reviewed in the axial, sagittal, and coronal planes. 3-D MIPS images are created and assessed. IV contrast was administered without complication. All measurements were obtained according to NASCET criteria. A dose lowering technique was utilized adhering to the principles of ALARA. FINDINGS: CT ANGIOGRAM OF THE BRAIN: The imaged bilateral internal carotid arteries are patent. The bilateral anterior and middle cerebral arteries are also patent. The vertebrobasilar system and posterior cerebral arteries are widely patent. There is no aneurysm, high-grade stenosis, or proximal branch occlusion identified. Dural sinuses appear patent. IMPRESSION: Unremarkable CTA of the head. ACT 112: Negative or not required by law. The above report was generated using voice recognition software. It may contain grammatical, syntax or spelling errors. Electronically signed by: Tre Jennings M.D. 12/21/2021 6:47 AM Neck CTA 12/20/21 22:03 NECK CTA HISTORY: dizzy, pain, sickle cell crisis TECHNIQUE: Multiaxial CT images of the neck were performed following the intravenous administration of contrast to evaluate the major cervical vessels. Maximum intensity projection images were also obtained. All measurements were calculated based on NASCET criteria. A dose lowering technique was utilized adhering to the principles of ALARA. COMPARISON STUDY: None. FINDINGS: The aortic arch and proximal great vessels are widely patent. There is no significant stenosis, occlusion, or dissection identified within the bilateral common carotid, internal carotid, or vertebral arteries. H shaped T3 and T4 vertebral bodies consistent with the patient's history of sickle cell disease. IMPRESSION: No significant stenosis, occlusion, or dissection identified within the carotid or vertebral arteries. ACT 112: Negative or not required by law. Electronically signed by: Cortes Fletcher M.D. 12/21/2021 7:10 AM Chest X-Ray 12/20/21 23:27 XR chest 1V portable HISTORY: 21 years-old Female weak acute weakness COMPARISON: Chest radiograph 10/13/2021 TECHNIQUE: AP view of the chest FINDINGS: Cardiomediastinal and hilar silhouettes are within normal limits. No pneumothorax, pleural effusion, airspace consolidation or overt pulmonary edema. H-shaped vertebral bodies compatible with the patient's clinical diagnosis of sickle cell disease. IMPRESSION: No acute process. ACT 112: Negative or not required by law. The above report was generated using voice recognition software. It may contain grammatical, syntax or spelling errors. Electronically signed by: Tre Jennings M.D. 12/21/2021 8:18 AM Hospital Course (1) Generalized pain: Donta Trevizo) is a 20yo female with sickle cell disease and chronic pain who presented to the ER with a three-day history of worsening generalized pain, nausea, and intermittent dizziness, which she describes as similar to prior acute sickle episodes. Now stable and in the process of optimizing pain control. Sickle cell acute pain crisis CXR without acute abnormality, oxygen saturation adequate - no evidence of acute chest syndrome Admission labs notable for anemia (8.6), hyperbilirubinemia (2.0), hsTroponin not elevated; hgb remains stable Etiology likely multifactorial: sickle cell disease acute pain crisis +/- opioid hyperalgesia with viral URI Pain control regimen: APAP 1000mg PO q8h scheduled D/c'd [employer], D/c'd IV 0.5mg q2h prn. home fentanyl patch Held off on NSAIDs given risk of renal injury in setting of hypotension and sickle cell crisis IVF for intravascular volume expansion- 1/2NSS at 80 mL/h. Continue home hydroxyurea, folate, zofran Continue home pain regimen with fentanyl patch, tylenol, oral morphine for breakthrough. May use meclizine and judicious use of Benadryl for dizziness/itching. Avascular necrosis of bone of hip -bilateral hip avascular necrosis due to her underlying sickle cell disease - definitive treatment is total hip replacement per previous ortho consultation - f/u outpatient following discharge Sleep difficulties -d/c zolpidem -pain control as above Cold-like symptoms, resolved POC flu test ordered and was negative, COVID test negative on admission, this is likely representing an acute viral upper respiratory illness. No indication for antibiotics at this time. Incentive spirometry Mucinex, Flonase, Astelin Hypotension,resolved Patient with intermittent hypotension which is not uncommon for her during sickle cell acute pain episodes, in part due to poor PO intake s/p 1/2 NSS @ 80mL/hr Encourage PO intake Hyperbilirubinemia, resolved Total bilirubin on admission 2.0, LFTs otherwise wnl; likely from hemolysis during acute pain episodes GERD: d/c famotidine. Constipation: continue home miralax. (2) Elevated bilirubin: (3) Elevated troponin: (4) Nausea: (5) Sickle cell crisis: (6) Observation following foreign body ingestion: Total Time Total Time Spent Total Time Spent (In Minutes): 30 Discharge Plan Discharge Items Patient Disposition: Home - Self-Care Reason For Visit: PAIN, SICKLE CELL CRISIS Discharge Diagnosis: Sickle cell crisis Condition on Discharge: Good Activity: Resume your previous activity Non-emergency contact: Primary Care Provider Call non-emergency contact if: you have any medication questions and your symptoms worsen Follow-up/Referrals: Jp Castrejon MD [Physician] - (hip replacement discussion) [facility] [Primary Care Provider] - Diet: Regular Addtl Attending Provider Instructions: You were admitted to the hospital for sickle cell crisis and pain control. You were in the hospital for an extended period of time however upon discharge we believe we have controlled your pain nearly back to your baseline. You should continue with your home regimen which includes your fentanyl patch, Tylenol, and oral morphine 15 mg 3 times a day as needed. As for your dizziness you can continue to take meclizine as well as judicial use of Benadryl to mitigate the symptoms. It seems that Benadryl also helps with your overall itchiness. I have also referred you to the orthopedic surgeon who had seen you this past summer while in the hospital and recommended a hip replacement secondary to avascular necrosis. To mitigate your pain going forward I think it would be appropriate to follow-up with them and have further discussion about going forward with this hip replacement which should benefit you in the long-term. Referral has been made so please expect a call to schedule an appointment. Pending Studies at Discharge: No Stand-Alone Forms: [facility] Medications and DC Order Prescriptions: Continued polyethylene glycol 3350 17 gram/dose powder 17 g PO DAILY PRN (Reason: Constipation) cholecalciferol (vitamin D3) [Vitamin D3] 25 mcg (1,000 unit) Tablet 25 mcg PO HS meclizine 25 mg tablet 25 mg PO TID PRN (Reason: Dizziness) hydroxyurea 500 mg capsule 1,000 mg PO BID folic acid 1 mg Tablet 2 mg PO HS naloxone [Narcan] 4 mg/actuation spray,non-aerosol 4 mg INTRANASAL UD PRN (Reason: opiod overdose) morphine 15 mg tablet 15 mg PO Q8H PRN (Reason: pain) Qty: 90 0RF fentanyl 12 mcg/hr Patch 72 Hour 12 mcg transdermal Q3D Qty: 10 0RF Rx Instructions: CHANGED 12/19/21 ondansetron 4 mg tablet,disintegrating 4 mg PO TID Qty: 30 0RF Discharge Orders: Discharge Order (Routine); Ordered 01/16/22 Ordered By: Neymar Bailey Admission Data Admit Date/Time: 12/21/21 00:32 Attending Provider: Jamie Shaw Admit Provider: Jhoan German Primary Care Provider: [facility] Other Providers: Jaymie Castrejon ; Cesar Kerr Supervising Physician Co-Signing Physician Notes Attending attestation Pt seen and examined in concert with Dr. Bailey. In agreement with the documented findings as noted in the resident documentation with any exceptions or additions as noted here. Patient resting well at time of evaluation, pain controlled adequately on present PO medication. VS, nursing notes, imaging and lab studies reviewed. On examination, S1/S2 nl RRR no MCG. CTAB. Abd NT/ND BS+ve Sickle cell disease w/ acute pain crisis in the setting of chronic pain - continue morphine 15mg TID PO, APAP, fentanyl patch. Counseling regarding further episodes, management and supportive care including good sleep, hydration. Else see resident documentation as noted. Total attending physician time spent with this patient's care on the day of discharge: 35 minutes Resident Activity Tracking Resident Involvement: Resident Care Provided Care Provided: Adult Hospital Medicine
== END 2022-01-16 18:42 | disposition home or self-care (01) | DRG 812 ==
LOC: ED 19:46 → SUATTDRO 12-21 00:32 → 3N 12-21 00:32

== ENCOUNTER 2022-02-01 11:52 | Inpatient (IN) ==
[2022-02-01 12:47] LABS: Basophils # (auto) 0.03 K/uL (0-0.2); Basophils % (auto) 0.2 %; Eosinophils # (auto) 0.01 K/uL (0-0.50); Eosinophils % (auto) 0.1 %; Hematocrit (blood only) 23.9 % (34.1-44.9); Immature Granulocytes # (auto) 0.07 K/uL (0.00-0.02); Immature Granulocytes % (auto) 0.5 %; Lymphocytes # (auto) 1.61 K/uL (1.2-3.4); Lymphocytes % (auto) 11.9 %; Mean Corpuscular Hemoglobin 42.5 pg (25.0-34.0); Mean Corpuscular Hgb Conc 37.7 g/dL (32.0-36.0); Mean Corpuscular Volume 112.7 fL (80.0-100.0); Mean Platelet Volume 10.4 fL (9.4-12.3); Monocytes # (auto) 0.45 K/uL (0.24-0.82); Monocytes % (auto) 3.3 %; Neutrophils # (auto) 11.33 K/uL (1.4-6.5); Nucleated RBC # (auto) 0.03 K/uL (0-0); Nucleated RBC % (auto) 0.2 %; Platelet Count 229 K/uL (130-400); RDW Coefficient of Variation 14.7 % (11.5-14.5); RDW Standard Deviation 60.3 fL (36.4-46.3); Red Blood Count 2.12 M/uL (3.93-5.22)
[2022-02-01] MEDS ORDERED: diphenhydrAMINE 50 MG/ML VIAL IV STA (12:55)
[2022-02-01] MEDS ORDERED: ONDANSETRON INJ 2 MG/ML 2 ML VIAL IV STA (12:55)
[2022-02-01] MEDS ORDERED: SODIUM CHLORIDE 0.9% 1000ML 1,000 ML IV ONE (12:55)
[2022-02-01] MEDS ORDERED: HYDROmorphone INJ 1 MG/ML SYRINGE IV STA (12:55)
--- NOTE | 2022-02-01 13:00 | Emergency Department Note ---
Impression & Plan Generalized pain, Sickle cell crisis, Leukocytosis, Anemia ED Provider Note NAME: ADÁN PEOPLES AGE: 21 SEX: F : 2000 ARRIVES VIA: Walk-In INFORMANT: [Patient][Sister] ED PROVIDER(S): [Richard Joiner MD] CHIEF COMPLAINT: Generalized pain HISTORY OF PRESENT ILLNESS: The patient is a 21-year-old female presents to the ER with 2, maybe 3 days of increasing allover body, back pain and joint pain. She has sickle cell disease and she believes she is having a sickle cell painful crisis. She does have a fentanyl patch and uses morphine IR but, these meds are not helping her discomfort. All her pain is severe. There has been no fever, no cough or congestion or respiratory complaints. No urinary complaints. The patient admits to some nausea, no vomiting. REVIEW OF SYSTEMS: See HPI for pertinent positives and negatives. A total of ten systems were reviewed and were otherwise negative. PMHx/PSHx: See Below SOCIAL HISTORY: See Below. PHYSICAL EXAM: GENERAL: Patient is in mild distress from pain HEENT: No acute trauma, normocephalic atraumatic, mucous membranes moist, no nasal congestion, no scleral icterus. NECK: No stridor, no adenopathy, no meningismus, trachea is midline. LUNGS: Clear to auscultation bilaterally, no wheeze, no rhonchi, breath sounds equal. HEART: 2/6 systolic murmur, mildly tachycardic, regular rhythm. ABDOMEN: Soft, nontender, bowel sounds positive, no peritonitis. EXTREMITIES: No cyanosis or edema, full range of motion of all the joints without pain or difficulty, no signs for acute trauma. NEUROLOGIC: Oriented x 3, no acute motor or sensory deficits, no focal weakness. SKIN: No rash, no jaundice, no diaphoresis. DIFFERENTIAL DIAGNOSIS: Sickle cell painful crisis, infection, viral illness, bacteremia, UTI, dehydration, anemia, electrolyte imbalance, among others. EMERGENCY DEPARTMENT COURSE/PROCEDURES: MEDICAL DECISION MAKING: There is a mild leukocytosis, this could be consistent with infection or just her pain. There is an anemia present but this is baseline looking back at previous testing. There is a normal platelet count. No renal failure. Bilirubin is elevated, this has been documented before. The remaining liver enzymes are unremarkable. Respiratory bio fire was completely negative. Reti culocyte count was elevated at 4.5%, consistent with her sickle cell disease. On exam, the patient appeared in pain, she was not febrile. Patient was given IV saline, 1 L. She received IV Dilaudid for pain control. She was given IV Benadryl to help with itching. She received IV Zofran. Patient has received a few doses of IV Dilaudid. She is not stable for discharge home. Further hydration, further pain management will be necessary. I did speak with the patient and case management, the on-call hospitalist was consulted. The patient does appear to be suffering from a sickle cell painful crisis. Past Med/Surg History Medical History Acute dehydration Acute leg pain Borderline personality disorder Chest pain Chronic pain Constipation Depression with suicidal ideation Intractable pain Murmur, cardiac Nausea Overdose Overdose Person under investigation for COVID-19 Pneumonia Pseudoseizures Seizure-like activity Seizure-like activity Sickle cell anemia Sickle cell crisis Suicidal ideation Suicide gesture Surgical History No pertinent past surgical history Family History Mother Hypertension Father Ulcer Other Family history non-contributory Social History Smoking Status: Never smoker Tobacco Type: Cigarettes Second Hand Exposure: No; Hx Alcohol Use: Yes Alcohol type: wine and hard liquor Hx Substance Use: No Preferred Language: Yoruba Communication Ability: Effective Line Person Required: No Beliefs That Will Affect Care: None marital status: Single Current Living Situation: Other Current Living Situation Comment: Town House with roomates 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 current occupation: [employer] major Feels Safe at Home: Yes Assistive Devices: None Allergies Allergies Allergy/AdvReac Type Severity Reaction Status Date / Time adhesive Allergy Intermediate Blister Verified 12/21/21 00:44 Home Meds Home Medications Medication Instructions Recorded Confirmed folic acid 1 mg tablet 2 mg PO HS 01/31/21 12/20/21 hydroxyurea 500 mg capsule 1,000 mg PO BID 01/31/21 12/20/21 cholecalciferol (vitamin D3) 25 25 mcg PO HS 08/13/21 12/20/21 mcg (1,000 unit) tablet (Vitamin D3) polyethylene glycol 3350 17 17 g PO DAILY PRN Constipation 08/13/21 12/20/21 gram/dose oral powder naloxone 4 mg/actuation nasal 4 mg intranasal UD PRN opiod 10/13/21 12/20/21 spray (Narcan) overdose meclizine 25 mg tablet 25 mg PO TID PRN Dizziness 12/20/21 12/20/21 Previous Rx's Medication Instructions Recorded fentanyl 12 mcg/hr transdermal 12 mcg transdermal Q3D #10 ea 11/04/21 patch morphine 15 mg immediate release 15 mg PO Q8H PRN pain #90 tabs 11/04/21 tablet ondansetron 4 mg disintegrating 4 mg PO TID #30 tabs 11/07/21 tablet Results & Data (ED) Vital Signs Vital Signs - 24 hr 02/01/22 11:55 02/01/22 13:13 02/01/22 13:53 Temperature 36.6 C Temperature Source Temporal Artery Scan Pulse Rate 119 H Pulse Rate [Finger] 97 H Respiratory Rate 16 18 18 Respiratory Effort / Characteristics Non-Labored Respiratory Depth Normal Blood Pressure 100/69 Blood Pressure [Right Arm] 99/50 L 110/65 Blood Pressure Mean 79 Blood Pressure Mean [Right Arm] 66 80 Pulse Oximetry 100 99 100 Oxygen Delivery Method Room Air Room Air Room Air Sepsis Recent Fever Within 48 Hours No Sepsis New/Unexplained Change in Mental Status No Sepsis Action Taken by Nursing No Action Required Home Medications Current Medication List: was personally reviewed by me Laboratory Data Attestation: I reviewed the patient's lab results. Result diagrams: 02/01/22 12:11 02/01/22 12:11 Lab Results 02/01/22 02/01/22 02/01/22 Range/Units 12:11 12:11 12:11 WBC 13.50 H (4.8-10.8) K/ul RBC 2.12 L (3.93-5.22) M/uL Hgb 9.0 L (12.0-16.0) g/dl Hct 23.9 L (34.1-44.9) % MCV 112.7 H (80.0-100.0) fL MCH 42.5 H (25.0-34.0) pg MCHC 37.7 H (32.0-36.0) g/dL RDW Std Deviation 60.3 H (36.4-46.3) fL RDW Coeff of Nando 14.7 H (11.5-14.5) % Plt Count 229 (130-400) K/uL MPV 10.4 (9.4-12.3) fL Immature Gran % (Auto) 0.5 % Neut % (Auto) 84.0 % Lymph % (Auto) 11.9 % [place] % (Auto) 3.3 % Eos % (Auto) 0.1 % Baso % (Auto) 0.2 % Reticulocyte % (Auto) 4.5 H (0.5-2.0) % Neut # (Auto) 11.33 H (1.4-6.5) K/uL Lymph # (Auto) 1.61 (1.2-3.4) K/uL [place] # (Auto) 0.45 (0.24-0.82) K/uL Eos # (Auto) 0.01 (0-0.50) K/uL Baso # (Auto) 0.03 (0-0.2) K/uL Reticulocyte # 0.09 (0.02-0.10) 10^6/uL Immature Gran # (Auto) 0.07 H (0.00-0.02) K/uL Absolute Nucleated RBC 0.03 H (0-0) K/uL Nucleated RBC % (auto) 0.2 % Polychromasia 1+ Macrocytosis Present Target Cells 1+ Sodium 134 L (136-145) mmol/L Potassium 3.4 L (3.5-5.1) mmol/L Chloride 100 (98-107) mmol/L Carbon Dioxide 24 (21-32) mmol/L Anion Gap 10 (3-11) BUN 8 (6-23) mg/dl Creatinine 0.55 L (0.6-1.2) mg/dl Est Cr Clr Drug Dosing Not Reportable Est GFR ( Amer) > 150.0 ml/min Est GFR (Non-Af Amer) 132.2 ml/min BUN/Creatinine Ratio 14.5 (10-20) Glucose 103 H (70-99(Fasting)) mg/dl Calcium 9.5 (8.5-10.1) mg/dl Total Bilirubin 2.7 H (0.2-1.0) mg/dl AST 24 (13-39) U/L ALT 15 (7-52) U/L Alkaline Phosphatase 49 (34-104) U/L Total Protein 8.7 H (6.0-8.3) gm/dl Albumin 4.4 (3.4-5.0) gm/dl Globulin 4.3 H (2.5-4.0) gm/dl Albumin/Globulin Ratio 1.0 (0.9-2) Adenovirus (PCR) (NotDetected) B. pertussis DNA (PCR) (NotDetected) B.parapertussis DNA PCR (NotDetected) C. pneumoniae DNA (PCR) (NotDetected) Coronavirus OC43 (PCR) (NotDetected) Coronavirus HKU1 (PCR) (NotDetected) Coronavirus 229E (PCR) (NotDetected) SARS-CoV-2 (PCR) (NotDetected) Coronavirus NL63 (PCR) (NotDetected) Human Metapneumovir PCR (NotDetected) Influenza Type A (PCR) (NotDetected) Influenza Type B (PCR) (NotDetected) M. pneumoniae (PCR) (NotDetected) Parainfluenza 1 (PCR) (NotDetected) Parainfluenza 2 (PCR) (NotDetected) Parainfluenza 3 (PCR) (NotDetected) Parainfluenza 4 (PCR) (NotDetected) RSV (PCR) (NotDetected) Entero/Rhino (PCR) (NotDetected) 02/01/22 Range/Units 13:10 WBC (4.8-10.8) K/ul RBC (3.93-5.22) M/uL Hgb (12.0-16.0) g/dl Hct (34.1-44.9) % MCV (80.0-100.0) fL MCH (25.0-34.0) pg MCHC (32.0-36.0) g/dL RDW Std Deviation (36.4-46.3) fL RDW Coeff of Nando (11.5-14.5) % Plt Count (130-400) K/uL MPV (9.4-12.3) fL Immature Gran % (Auto) % Neut % (Auto) % Lymph % (Auto) % [place] % (Auto) % Eos % (Auto) % Baso % (Auto) % Reticulocyte % (Auto) (0.5-2.0) % Neut # (Auto) (1.4-6.5) K/uL Lymph # (Auto) (1.2-3.4) K/uL [place] # (Auto) (0.24-0.82) K/uL Eos # (Auto) (0-0.50) K/uL Baso # (Auto) (0-0.2) K/uL Reticulocyte # (0.02-0.10) 10^6/uL Immature Gran # (Auto) (0.00-0.02) K/uL Absolute Nucleated RBC (0-0) K/uL Nucleated RBC % (auto) % Polychromasia Macrocytosis Target Cells Sodium (136-145) mmol/L Potassium (3.5-5.1) mmol/L Chloride (98-107) mmol/L Carbon Dioxide (21-32) mmol/L Anion Gap (3-11) BUN (6-23) mg/dl Creatinine (0.6-1.2) mg/dl Est Cr Clr Drug Dosing Est GFR ( Amer) ml/min Est GFR (Non-Af Amer) ml/min BUN/Creatinine Ratio (10-20) Glucose (70-99(Fasting)) mg/dl Calcium (8.5-10.1) mg/dl Total Bilirubin (0.2-1.0) mg/dl AST (13-39) U/L ALT (7-52) U/L Alkaline Phosphatase (34-104) U/L Total Protein (6.0-8.3) gm/dl Albumin (3.4-5.0) gm/dl Globulin (2.5-4.0) gm/dl Albumin/Globulin Ratio (0.9-2) Adenovirus (PCR) Not Detected (NotDetected) B. pertussis DNA (PCR) Not Detected (NotDetected) B.parapertussis DNA PCR Not Detected (NotDetected) C. pneumoniae DNA (PCR) Not Detected (NotDetected) Coronavirus OC43 (PCR) Not Detected (NotDetected) Coronavirus HKU1 (PCR) Not Detected (NotDetected) Coronavirus 229E (PCR) Not Detected (NotDetected) SARS-CoV-2 (PCR) Not Detected (NotDetected) Coronavirus NL63 (PCR) Not Detected (NotDetected) Human Metapneumovir PCR Not Detected (NotDetected) Influenza Type A (PCR) Not Detected (NotDetected) Influenza Type B (PCR) Not Detected (NotDetected) M. pneumoniae (PCR) Not Detected (NotDetected) Parainfluenza 1 (PCR) Not Detected (NotDetected) Parainfluenza 2 (PCR) Not Detected (NotDetected) Parainfluenza 3 (PCR) Not Detected (NotDetected) Parainfluenza 4 (PCR) Not Detected (NotDetected) RSV (PCR) Not Detected (NotDetected) Entero/Rhino (PCR) Not Detected (NotDetected) Administered Medications Discontinued Medications Diphenhydramine HCl (Diphenhydramine 50 Mg/Ml Vial) 25 mg IV NOW STA Stop: 02/01/22 12:56 Last Admin: 02/01/22 13:08 Dose: 25 mg Documented By: MERARI Hydromorphone HCl (Hydromorphone Inj 1 Mg/Ml Syringe) 1 mg IV NOW STA Stop: 02/01/22 12:56 Last Admin: 02/01/22 13:02 Dose: 1 mg Documented By: MERARI Hydromorphone HCl (Hydromorphone Inj 0.5 Mg/0.5 Ml Syr) 0.5 mg IV NOW STA Stop: 02/01/22 13:49 Last Admin: 02/01/22 13:52 Dose: 0.5 mg Documented By: MERARI Sodium Chloride (Nss 1000ml) 1,000 mls @ 999 mls/hr IV .Q1H1M ONE Stop: 02/01/22 13:55 Last Infusion: 02/01/22 13:55 Dose: 0 mls/hr Documented By: Admin: 02/01/22 13:02 Dose: 999 mls/hr Documented By: MERARI Ondansetron HCl (Ondansetron Inj 2 Mg/Ml 2 Ml Vial) 4 mg IV NOW STA Stop: 02/01/22 12:56 Last Admin: 02/01/22 13:02 Dose: 4 mg Documented By: KT Discharge Plan Visit Data Chief Complaint: Pain (Generalized) Stated Complaint: PAIN, NAUSEOUS, SICKLE CELL ANEMIA ED Provider: Richard Joiner Discharge Problem: Generalized pain, Sickle cell crisis, Leukocytosis, Anemia Patient Disposition: Admitted As Inpatient Condition: Fair Forms Stand Alone Forms: [facility] Prescriptions Prescriptions: No Action polyethylene glycol 3350 17 gram/dose powder 17 g PO DAILY PRN (Reason: Constipation) cholecalciferol (vitamin D3) [Vitamin D3] 25 mcg (1,000 unit) Tablet 25 mcg PO HS meclizine 25 mg tablet 25 mg PO TID PRN (Reason: Dizziness) hydroxyurea 500 mg capsule 1,000 mg PO BID folic acid 1 mg Tablet 2 mg PO HS naloxone [Narcan] 4 mg/actuation spray,non-aerosol 4 mg INTRANASAL UD PRN (Reason: opiod overdose) morphine 15 mg tablet 15 mg PO Q8H PRN (Reason: pain) Qty: 90 0RF fentanyl 12 mcg/hr Patch 72 Hour 12 mcg transdermal Q3D Qty: 10 0RF Rx Instructions: CHANGED 12/19/21 ondansetron 4 mg tablet,disintegrating 4 mg PO TID Qty: 30 0RF Referrals Referrals: [facility] [Primary Care Provider] -
[2022-02-01 13:08] LABS: Alanine Aminotransferase 15 U/L (7-52); Albumin Level 4.4 gm/dl (3.4-5.0); Alkaline Phosphatase 49 U/L (34-104); Anion Gap 10 (3-11); Aspartate Aminotransferase 24 U/L (13-39); BUN Creatinine Ratio 14.5 (10-20); Bilirubin,Total 2.7 mg/dl (0.2-1.0); Blood Urea Nitrogen 8 mg/dl (6-23); Calcium 9.5 mg/dl (8.5-10.1); Carbon Dioxide 24 mmol/L (21-32); Chloride 100 mmol/L (98-107); Est GFR (African American) > 150.0 ml/min; Est GFR (Non-African American) 132.2 ml/min; Globulin 4.3 gm/dl (2.5-4.0); Glucose 103 mg/dl (70-99(Fasting)); Potassium 3.4 mmol/L (3.5-5.1); Sodium 134 mmol/L (136-145); Total Protein 8.7 gm/dl (6.0-8.3)
[2022-02-01 13:18] LABS: Macrocytosis Present; Polychromasia 1+; Target Cells 1+
[2022-02-01] MEDS ORDERED: HYDROmorphone INJ 0.5 MG/0.5 ML SYR IV STA ×2 (13:48→23:20)
[2022-02-01 14:00] LABS: Reticulocyte % 4.5 % (0.5-2.0); Reticulocytes # 0.09 10^6/uL (0.02-0.10)
[2022-02-01 14:21] LABS: Adenovirus PCR Not Detected (NotDetected); Bordetella parapertussis PCR Not Detected (NotDetected); Bordetella pertussis PCR Not Detected (NotDetected); Chlamydia pneumoniae PCR Not Detected (NotDetected); Coronavirus 229E PCR Not Detected (NotDetected); Coronavirus CoV-2 (COVID19)PCR Not Detected (NotDetected); Coronavirus HKU1 PCR Not Detected (NotDetected); Coronavirus NL63 PCR Not Detected (NotDetected); Coronavirus OC43PCR Not Detected (NotDetected); Human Metapneumovirus PCR Not Detected (NotDetected); Influenza A PCR Not Detected (NotDetected); Influenza B PCR Not Detected (NotDetected); Mycoplasma pneumoniae PCR Not Detected (NotDetected); Parainfluenza Virus 1 PCR Not Detected (NotDetected); Parainfluenza Virus 2 PCR Not Detected (NotDetected); Parainfluenza Virus 3 PCR Not Detected (NotDetected); Parainfluenza Virus 4 PCR Not Detected (NotDetected); Respiratory Syncytial VirusPCR Not Detected (NotDetected); Rhinovirus/Enterovirus PCR Not Detected (NotDetected)
--- NOTE | 2022-02-01 14:28 | History & Physical Report ---
Date of Service February 01, 2022 Assessment & Plan (1) Sickle cell crisis: Plan: Patient presents with pain reminiscent of her previous sickle cell crises. Typically at home she is on fentanyl patch at 12 MS, 10 breakthrough to 45 mg per dose and hydroxyurea Patient with oxygen and aggressive hydration with normal saline she appears slightly hypovolemic and not been eating or drinking. If she reaches euvolemic state consideration to change her fluids to half-normal saline per up-to-date guidelines Using IV hydromorphone phone will not have LICENSED EMBALMER at this time we will continue her fentanyl patch but hold her breakthrough MS Contin at this point in time providi ng naloxone for oversedation Continuing her hydroxyurea during her hospital stay Follow hemoglobin for sudden drop reticulocyte count is elevated does raise concern for splenic sequestration Patient is a pending urine culture to determine if a urinary tract infection could be in setting and then for this patient. She is also having her period and she feels a rapid change in weather can also precipitate her symptoms (2) Fever: Plan: Patient developed fever all in the emergency department. She does have a cloudy urine. Urine culture is sent. The patient was given 2000 mg of ceftriaxone with it ordered daily for an uncomplicated UTI pending the results of the urine culture. Of course the fever could be from her sickle crisis otherwise (3) Borderline personality disorder: Plan: Patient's had previous psychiatric consultations for suicidal ideation and counseling for borderline personality disorder. The patient currently is not on any home medications. Patient denies current suicidal ideation at this point in time. (4) GERD (gastroesophageal reflux disease): Plan: Once admitted the patient typically is on a PPI or H2 chata which we will start with Pepcid. (5) Avascular necrosis of bone of hip: Plan: Although having significant avascular necrosis patient denies any focal hip bone pain. The patient will be provided general pain medication Plan Lovenox for DVT prevention for mildly low potassium, will have potassium added to ivf, recheck in am History of Present Illness Primary Care Provider: [facility] [place] 21-year-old female with history of sickle cell disease who presents with diffuse body pain and back pain reminiscent of previous sickle cell crisis. Patient also is been having cloudy urine patient is due to graduate on February 02 1 day after admission. Patient was recently discharged from our facility January 16 after a 27-day stay surrounding pain from her sickle cell. Patient does have a history of previous suicidal ideation borderline personality and opiate hyperalgesia syndrome. Patient denies any other inciting events in her life any changes in her sleep stress or diet with the exception over the last day due to the pain she is not eating as much she is trying to keep up with hydration. She was tachycardic on presentation. She is a mild leukocytosis of 13 her hemoglobin is stable to improved at 9 g she is a reticulocyte count of 4.5 corrected that will be probably near 6 or 7, her bilirubin is 2.7, bio fire is negative Allergies Allergy/AdvReac Type Severity Reaction Status Date / Time adhesive Allergy Intermediate Blister Verified 12/21/21 00:44 Home Medications Medication Instructions Recorded Confirmed Type folic acid 1 mg tablet 2 mg PO HS 01/31/21 02/01/22 History hydroxyurea 500 mg capsule 1,000 mg PO BID 01/31/21 02/01/22 History cholecalciferol (vitamin D3) 25 25 mcg PO HS 08/13/21 02/01/22 History mcg (1,000 unit) tablet (Vitamin D3) polyethylene glycol 3350 17 17 g PO DAILY PRN Constipation 08/13/21 02/01/22 History gram/dose oral powder naloxone 4 mg/actuation nasal 4 mg intranasal UD PRN opiod 10/13/21 02/01/22 History spray (Narcan) overdose fentanyl 12 mcg/hr transdermal 12 mcg transdermal Q3D #10 ea 11/04/21 02/01/22 Rx patch morphine 15 mg immediate release 15 mg PO Q8H PRN pain #90 tabs 11/04/21 02/01/22 Rx tablet ondansetron 4 mg disintegrating 4 mg PO TID #30 tabs 11/07/21 02/01/22 Rx tablet meclizine 25 mg tablet 25 mg PO TID PRN Dizziness 12/20/21 02/01/22 History Past Med/Surg History Medical History Acute dehydration Acute leg pain Borderline personality disorder Chest pain Chronic pain Constipation Depression with suicidal ideation Intractable pain Murmur, cardiac Nausea Overdose Overdose Person under investigation for COVID-19 Pneumonia Pseudoseizures Seizure-like activity Seizure-like activity Sickle cell anemia Sickle cell crisis Suicidal ideation Suicide gesture Surgical History No pertinent past surgical history Family History Mother Hypertension Father Ulcer Other Family history non-contributory Social History Smoking Status: Never smoker Tobacco Type: Cigarettes Second Hand Exposure: No; Hx Alcohol Use: Yes Alcohol type: wine and hard liquor Hx Substance Use: No Preferred Language: Kenyan Communication Ability: Effective Refresh Technician Required: No Beliefs That Will Affect Care: None marital status: Single Current Living Situation: Other Current Living Situation Comment: Town House with roomates 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 current occupation: [employer] major Feels Safe at Home: Yes Assistive Devices: None Review of Systems Review of Systems: Moderate distress and fatigue no headache, no visual changes no speech or swallowing issues no chest pain, pressure or palpitations no shortness of breath, cough or wheezes no abdominal pain, patient is in nausea without vomiting no dysuria, patient complains of cloudy urine Patient has typical hip pain but now complaining of nonradicular back pain no CVA tenderness or radicular pain no bruising, bleeding or rashes no focal signs of weakness or numbness or altered sensation no complaints of anxiety or depression.. Physical Exam Physical Exam: The patient appeared well nourished and normally developed. Vital signs as documented. Head exam is normocephalic atraumatic Neck is without JVD, thyromegaly, or carotid bruits. No lymphadenopathy Lungs are clear to auscultation, no focal loss of breath sounds Cardiac exam, Rhythm is regular.. No murmurs, rubs or gallops. Abdominal exam reveals normal bowel sounds, soft non tender, no splenomegaly was able to be palpated Extremities are nonedematous and both pedal pulses are present there is no focal large bone pain or joint pain Neurologic exam is alert and oriented, no focal loss of strength or sensation Skin is without bruises or rashes Psychologically is with for depression. Patient avoided eye contact talked in a low tone. Results & Data Results & Data ([facility]) Vital Signs (Past 12 Hours) Vital Signs Temp Pulse Pulse Resp BP BP Pulse Ox 02/01/22 13:53 97 H 18 110/65 100 02/01/22 13:13 18 99/50 L 99 02/01/22 11:55 97.9 F 119 H 16 100/69 100 O2 Del Method 02/01/22 13:53 Room Air 02/01/22 13:13 Room Air 02/01/22 11:55 Room Air Code Status & VTE Plan VTE Prophylaxis Plan VTE Prophylaxis will be ordered: Yes PG Care Time/CCT Total # of Minutes Spent Total Time Spent with Patient: Total time spent is greater than 50% in coordination of care (as documented) at patient's floor/unit and/or counseling patient: Coding Level of Care Code 95246 Initial Inpt Care Lvl 3 Diagnoses Sickle cell crisis D57.00 Fever R50.9 Borderline personality disorder F60.3 GERD (gastroesophageal reflux disease) K21.9 Esophagitis presence: esophagitis presence not specified Avascular necrosis of bone of hip M87.059 (1) GERD (gastroesophageal reflux disease) Esophagitis presence: esophagitis presence not specified Qualified Code(s): K21.9 - Gastro-esophageal reflux disease without esophagitis
[2022-02-01] MEDS: HYDROmorphone INJ 0.5 MG/0.5 ML SYR IV PRN ×3 (15:04→18:58)
[2022-02-01] MEDS ORDERED: ACETAMINOPHEN 500 MG TAB ONE (15:45)
[2022-02-01] MEDS ORDERED: KETOROLAC TROMETHAMINE 15 MG/ML VIAL IV ONE (17:45)
[2022-02-01] MEDS ORDERED: POLYETHYLENE (MIRALAX) 17 GM PACK PO PRN (18:28)
[2022-02-01] MEDS ORDERED: HYDROmorphone INJ 0.5 MG/0.5 ML SYR IV PRN (18:28)
[2022-02-01] MEDS ORDERED: PROMETHAZINE HCL 12.5 MG in SODIUM CHLORIDE 0.9% 50 ML IV PRN (18:28)
[2022-02-01] MEDS ORDERED: POTASSIUM CHLORIDE 20 MEQ in SODIUM CHLORIDE 0.9% 1000ML 1,000 ML IV SCH (18:28)
[2022-02-01] MEDS ORDERED: NALOXONE HCL 0.4 MG/1 ML VIAL/CARP IV PRN (18:28)
[2022-02-01] MEDS ORDERED: ALUMINUM/MAGNESIUM SUSP 30 ML UDC PO PRN (18:28)
[2022-02-01] MEDS ORDERED: ENOXAPARIN INJ 40 MG/0.4 ML SYR SQ ONE (18:28)
[2022-02-01] MEDS ORDERED: cefTRIAXone SODIUM 2,000 MG in DEXTROSE 5% AD-VAN 50 ML IV STA (18:37)
--- NOTE | 2022-02-01 19:35 | XRay Report ---
TWO VIEW CHEST CLINICAL HISTORY: Sickle cell crisis. FINDINGS: PA and lateral chest radiographs are compared to study dated 12/20/2021. The cardiomediastin al silhouette is top normal for projection. The lungs and pleural spaces are clear noting mild bibas ilar atelectasis. There is no pneumothorax. The bony thorax appears intact. IMPRESSION: No active disease in the chest. ACT 112: Negative or not required by law. Electronically signed by: Richard Mcmahon M.D. 02/01/2022 7:33 PM
[2022-02-01] MEDS: CHECK fentaNYL PATCH PLACEMENT SCH (21:24)
[2022-02-01 21:28] LABS: Appearance Urine Turbid (Clear); Bacteria Urine Automated 4+ (Negative); Bilirubin Urine Negative (Negative); Blood Urine 2+ (Negative); Color Urine Yellow; Epithelial Cell Urine Auto >30 /lpf (0-5); Glucose Urine UA Negative (Negative); Ketones Urine Negative (Negative); Leukocyte Esterase Urine 3+ (Negative); Nitrite Urine Negative (Negative); Protein Urine 1+ (Negative); Specific Gravity Urine 1.009 (1.000-1.030); Urobilinogen Urine Negative (Negative); WBC Urine Automated >30 /hpf (0-5)
[2022-02-01] MEDS ORDERED: diphenhydrAMINE 50 MG/ML VIAL IV ONE (21:45)
[2022-02-01] MEDS: fentaNYL 12 MCG/HR TDSY TD SCH (21:46)
[2022-02-01] MEDS: HYDROXYUREA 500 MG CAP PO SCH (21:47)
[2022-02-01] MEDS: FOLIC ACID 1 MG TAB PO SCH (21:47)
[2022-02-01] MEDS: ONDANSETRON 4 MG OD TAB PO SCH (21:48)
[2022-02-01] MEDS: HYDROmorphone INJ 1 MG/ML SYRINGE IV PRN (21:48)
[2022-02-01] MEDS: ACETAMINOPHEN 500 MG TAB PO SCH (21:48)
[2022-02-01] MEDS: CHOLECALCIFEROL 1,000 UNITS 25 MCG TAB PO SCH (21:48)
[2022-02-02] MEDS: CHECK fentaNYL PATCH PLACEMENT SCH ×4 (00:02→23:14)
[2022-02-02] MEDS: HYDROmorphone INJ 1 MG/ML SYRINGE IV PRN ×8 (03:07→22:34)
[2022-02-02] MEDS: ONDANSETRON INJ 2 MG/ML 2 ML VIAL IV PRN (04:35)
[2022-02-02] MEDS: ACETAMINOPHEN 500 MG TAB PO SCH ×4 (04:56→22:45)
[2022-02-02] MEDS ORDERED: NSS + 20MEQ KCL 20 MEQ/1,000 ML BAG IV SCH (05:30)
[2022-02-02] MEDS ORDERED: diphenhydrAMINE 50 MG/ML VIAL IV STA (06:40)
[2022-02-02] MEDS ORDERED: HYDROmorphone INJ 0.5 MG/0.5 ML SYR IV PRN (08:34)
[2022-02-02] MEDS: HYDROXYUREA 500 MG CAP PO SCH ×2 (09:00→22:35)
[2022-02-02] MEDS: ONDANSETRON 4 MG OD TAB PO SCH ×3 (09:00→22:45)
[2022-02-02] MEDS ORDERED: diphenhydrAMINE Capsule 25 MG CAP PO PRN (09:39)
--- NOTE | 2022-02-02 10:05 | Hospitalist Progress Note ---
Date of Service February 02, 2022 Assessment & Plan (1) Sickle cell crisis: Plan: Patient presents with pain reminiscent of her previous sickle cell crises. Typically at home she is on fentanyl patch at 12 MS, 10 breakthrough to 45 mg per dose and hydroxyurea. Patient is currently admitted with to 2-hour Dilaudid as needed for pain and is hemodynamically stable. -Pain regimen as follows: Scheduled Tylenol, 0.5 Dilaudid IV every 2 hour as needed for pain 4 through 6, 1.0 Dilaudid IV every 2 hours as needed for pain 7 through 10, and daily fentanyl patch. Naloxone available for patient as needed. -Benadryl 50 mg every 6 hours as needed for itching -Switch IV fluids from normal saline to half-normal saline to prevent sickling -zofran as needed for nausea -Meclizine for dizziness -Hgb at 7.5 from 9.0 yesterday, hold off on transfusion at this time as she is not having symptomatic anemia, consider transfusion with a hemoglobin of less than 7 -Typed and crossed with 2 units held -LUQ US ordered to evaluate for splenic sequestration in the setting of LUQ pain -Daily CBC, CMP (2) Fever: Plan: - Likely secondary to urinary tract infection based on suprapubic tenderness and UA with leukocyte esterase, bacteria, and nitrites -Continue Rocephin every 24 hours for uncomplicated UTI, await sensitivities -Recheck fever tomorrow, due to history of sickle cell anemia, other causes of fever should be considered including splenic sequestration -LUQ US ordered to evaluate for splenomegaly in setting of LUQ pain -Currently appears well and is hemodynamically stable (3) Borderline personality disorder: Plan: -Patient's had previous psychiatric consultations for suicidal ideation and counseling for borderline personality disorder. The patient currently is not on any home medications. Patient denies current suicidal ideation at this point in time. (4) GERD (gastroesophageal reflux disease): Plan: -Started famotidine for H2 for GERD and itching, continue (5) Avascular necrosis of bone of hip: Plan: -Stable, not having any hip pain at this time. Plan DVT prophylaxis: Lovenox Diet: Regular, half-normal saline at 80 cc/h Disposition: [facility] Admission and Anticipated Discharge Date Admission Date: February 01, 2022 Supervising Physician Co-Signing Physician Notes Resident Physician Supervision Note: I independently interviewed and examined the patient and verified the amaro hi story and physical, reviewed labs and image studies and agree with resident findings and care plan. Subjective Patient seen at bedside this morning. No acute events reported overnight. Patient reports that current pain management with Dilaudid being permissive every 4 hours does not sufficient to keep her pain under control. Would not like [employer] at this time. Continues to have gross body aches with abdominal pain specifically in the suprapubic area. Denies dysuria. Of note patient is currently menstruating. Pleasant this morning without any suicidal thoughts or ideation. No other complaints at this time. Review of Systems Review of Systems: All systems reviewed & are unremarkable except as noted in HPI & below Physical Exam Constitutional: WD/WN, vitals as above Eyes: + anicteric sclerae Neck: trachea midline, no thyromegaly Respiratory: normal respiratory effort, lungs clear to auscultation Cardiovascular: RRR, no murmur, no edema Extremities: no edema Gastrointestinal (Abdomen): Inspection/Auscultation: normal bowel sounds Percussion/Palpation: + abdomen tender (suprapubic) and abdomen soft; no splenomegaly Musculoskeletal: Head/Neck/Chest: normocephalic and head atraumatic Skin: no rashes, warm and dry Neurologic: moves all extremities Psychiatric: A+Ox3, euthymic affect Results & Data Results & Data ([facility]) Vital Signs (Past 12 Hours) Vital Signs Temp Pulse Resp BP Pulse Ox O2 Del Method 02/02/22 09:53 36.9 C 02/02/22 09:02 98/55 L 02/02/22 08:18 39.5 C H 96 H 16 90/48 L 100 Room Air 02/02/22 06:26 39.4 C H 02/02/22 04:41 39.5 C H 02/02/22 03:27 36.5 C (1) GERD (gastroesophageal reflux disease) Esophagitis presence: esophagitis presence not specified Qualified Code(s): K21.9 - Gastro-esophageal reflux disease without esophagitis
[2022-02-02 10:31] LABS: Albumin Level 3.6 gm/dl (3.4-5.0); BUN Creatinine Ratio 12.7 (10-20); Bilirubin Direct 0.5 mg/dl (0-0.2); Bilirubin,Total 1.3 mg/dl (0.2-1.0); Calcium 8.4 mg/dl (8.5-10.1); Est GFR (African American) 146.5 ml/min; Est GFR (Non-African American) 126.4 ml/min; Potassium 3.8 mmol/L (3.5-5.1); Total Protein 7.2 gm/dl (6.0-8.3)
[2022-02-02 10:32] LABS: Hematocrit (blood only) 20.1 % (34.1-44.9); Hemoglobin 7.5 g/dl (12.0-16.0); Mean Corpuscular Hemoglobin 41.9 pg (25.0-34.0); Mean Corpuscular Hgb Conc 37.3 g/dL (32.0-36.0); Mean Corpuscular Volume 112.3 fL (80.0-100.0); Mean Platelet Volume 10.3 fL (9.4-12.3); Nucleated RBC # (auto) 0.02 K/uL (0-0); Nucleated RBC % (auto) 0.3 %; Platelet Count 206 K/uL (130-400); RDW Standard Deviation 61.1 fL (36.4-46.3); Red Blood Count 1.79 M/uL (3.93-5.22); White Blood Count 6.83 K/ul (4.8-10.8)
[2022-02-02] MEDS: SODIUM CHLORIDE 0.45 % 1,000 ML IV SCH ×2 (10:57→22:45)
--- NOTE | 2022-02-02 17:47 | Ultrasound Report ---
ULTRASOUND LEFT UPPER QUADRANT ABDOMEN CLINICAL HISTORY: Left upper quadrant abdominal pain. COMPARISON STUDY: Abdominal CT dated 12/20/2021. TECHNIQUE: Real-time ulrich scale and color flow sonography of the left upper quadrant is performed. Im ages are reviewed in the transverse and longitudinal planes. FINDINGS: Spleen: The spleen is mildly atrophic, measuring 5.3 cm in length. Echotexture is normal. No splenic lesion is seen. There is no perisplenic fluid. The splenic vessels appear patent at the hilum. Left kidney: The left kidney is normal in size and echotexture, measuring 10.7 cm in length. There is no hydronephrosis. No shadowing calculi are seen. IMPRESSION: Unremarkable sonographic examination of the left upper quadrant. Electronically signed by: Richard Mcmahon M.D. 02/02/2022 5:45 PM
[2022-02-02] MEDS: ENOXAPARIN INJ 40 MG/0.4 ML SYR SQ SCH (18:06)
[2022-02-02] MEDS: cefTRIAXone SODIUM 2,000 MG in DEXTROSE 5% 50 ML IV SCH (18:15)
[2022-02-02] MEDS: diphenhydrAMINE 50 MG/ML VIAL IV PRN (19:30)
[2022-02-02] MEDS: FOLIC ACID 1 MG TAB PO SCH (22:35)
[2022-02-02] MEDS: CHOLECALCIFEROL 1,000 UNITS 25 MCG TAB PO SCH (22:36)
[2022-02-02] MEDS: FAMOTIDINE 20 MG TAB PO SCH (22:45)
[2022-02-03] MEDS: HYDROmorphone INJ 1 MG/ML SYRINGE IV PRN ×10 (00:29→23:31)
[2022-02-03] MEDS: diphenhydrAMINE 50 MG/ML VIAL IV PRN ×4 (01:36→21:58)
[2022-02-03 06:52] LABS: Hematocrit (blood only) 19.2 % (34.1-44.9); Hemoglobin 7.2 g/dl (12.0-16.0); Mean Corpuscular Hemoglobin 42.1 pg (25.0-34.0); Mean Corpuscular Hgb Conc 37.5 g/dL (32.0-36.0); Mean Corpuscular Volume 112.3 fL (80.0-100.0); Mean Platelet Volume 10.5 fL (9.4-12.3); Platelet Count 234 K/uL (130-400); RDW Coefficient of Variation 15.4 % (11.5-14.5); RDW Standard Deviation 62.7 fL (36.4-46.3); Red Blood Count 1.71 M/uL (3.93-5.22); White Blood Count 4.14 K/ul (4.8-10.8)
[2022-02-03 07:14] LABS: Basophils # (auto) 0.03 K/uL (0-0.2); Basophils % (auto) 0.7 %; Eosinophils # (auto) 0.11 K/uL (0-0.50); Eosinophils % (auto) 2.7 %; Immature Granulocytes # (auto) 0.01 K/uL (0.00-0.02); Immature Granulocytes % (auto) 0.2 %; Lymphocytes # (auto) 1.61 K/uL (1.2-3.4); Lymphocytes % (auto) 38.9 %; Monocytes # (auto) 0.15 K/uL (0.24-0.82); Monocytes % (auto) 3.6 %; Neutrophils # (auto) 2.23 K/uL (1.4-6.5); Neutrophils % (auto) 53.9 %; Polychromasia 1+; Target Cells 2+
[2022-02-03 07:26] LABS: Alanine Aminotransferase 98 U/L (7-52); Albumin Level 3.5 gm/dl (3.4-5.0); Alkaline Phosphatase 63 U/L (34-104); Anion Gap 4 (3-11); Aspartate Aminotransferase 120 U/L (13-39); BUN Creatinine Ratio 9.8 (10-20); Bilirubin,Total 0.7 mg/dl (0.2-1.0); Blood Urea Nitrogen 4 mg/dl (6-23); Calcium 8.1 mg/dl (8.5-10.1); Carbon Dioxide 25 mmol/L (21-32); Chloride 108 mmol/L (98-107); Creatinine Clr Calc Pharmacy 199.8 ml/min; Est GFR (African American) > 150.0 ml/min; Est GFR (Non-African American) 145.6 ml/min; Globulin 3.4 gm/dl (2.5-4.0); Glucose 98 mg/dl (70-99(Fasting)); Potassium 3.4 mmol/L (3.5-5.1); Sodium 137 mmol/L (136-145); Total Protein 6.9 gm/dl (6.0-8.3)
[2022-02-03] MEDS: HYDROXYUREA 500 MG CAP PO SCH ×2 (07:35→21:22)
[2022-02-03] MEDS: FAMOTIDINE 20 MG TAB PO SCH ×2 (07:35→21:21)
[2022-02-03] MEDS: ONDANSETRON 4 MG OD TAB PO SCH ×3 (07:44→21:29)
[2022-02-03] MEDS: ACETAMINOPHEN 500 MG TAB PO SCH ×3 (07:44→21:21)
[2022-02-03] MEDS: CHECK fentaNYL PATCH PLACEMENT SCH ×3 (07:47→23:46)
--- NOTE | 2022-02-03 07:57 | Hospitalist Progress Note ---
Date of Service February 03, 2022 Assessment & Plan (1) Sickle cell crisis: Plan: Patient presents with pain reminiscent of her previous sickle cell crises. Typically at home she is on fentanyl patch at 12 MS, 10 breakthrough to 45 mg per dose and hydroxyurea. Patient is currently admitted with to 2-hour Dilaudid as needed for pain and is hemodynamically stable. -Pain regimen as follows: Scheduled Tylenol, 0.5 Dilaudid IV every 2 hour as needed for pain 4 through 6, 1.0 Dilaudid IV every 2 hours as needed for pain 7 through 10, and daily fentanyl patch. Naloxone available for patient as needed. -Switch IV fluids from normal saline to half-normal saline to prevent sickling -zofran as needed for nausea -Benadryl 50 mg every 6 hours as needed for itching -Hgb at 7.2 from 7.5 yesterday, hold off on transfusion at this time as she is not having symptomatic anemia, consider transfusion with a hemoglobin of less than 7 -Typed and crossed with 2 units held -LUQ US ordered to evaluate for splenic sequestration in the setting of LUQ pain -Daily CBC, CMP (2) Fever: Plan: - d/t UTI - E coli - pansensitive -Continue Rocephin every 24 hours - will switch rocephin to cefdinir for 5 days total of treatment -Currently appears well and is hemodynamically stable (3) Elevated liver enzymes: Plan: -CMP today showed mildly elevated levels of AST and ALT at 120 and 98 respectively. -Could be due to sickling causing acute vaso-occlusion in liver which would be transient -Due to frequent hospitalization and exposure to blood products, ordered hepatitis panel for tomorrow AM (4) Borderline personality disorder: Plan: -Patient's had previous psychiatric consultations for suicidal ideation and counseling for borderline personality disorder. The patient currently is not on any home medications. Patient denies current suicidal ideation at this point in time. (5) GERD (gastroesophageal reflux disease): Plan: -Continue famotidine for H2 for GERD and itching (6) Avascular necrosis of bone of hip: Plan: -Stable, not having any hip pain at this time. (7) Dizziness: Plan: -Meclizine for dizziness Plan DVT prophylaxis: Lovenox Diet: Regular, half-normal saline at 80 cc/h [facility] Code Status: Full Code Admission and Anticipated Discharge Date Admission Date: February 01, 2022 Supervising Physician Co-Signing Physician Notes Resident Physician Supervision Note: I independently interviewed and examined the patient and verified the amaro h istory and physical, reviewed labs and image studies and agree with resident findings and care plan. Subjective Patient seen at bedside this morning. No acute events reported overnight. Overall pain seems to be about the same and continuing to use the 1 mg of Dilaudid as frequently as she is allowed to. Itching somewhat improved after changing p.o. Benadryl to IV and adding Pepcid. Eating and drinking without difficulty. No other complaints at this time. Review of Systems Review of Systems: All systems reviewed & are unremarkable except as noted in HPI & below Physical Exam Constitutional: WD/WN, vitals as above Eyes: + anicteric sclerae Neck: trachea midline, no thyromegaly Respiratory: normal respiratory effort, lungs clear to auscultation Cardiovascular: RRR, no murmur, no edema Extremities: no edema Gastrointestinal (Abdomen): Inspection/Auscultation: normal bowel sounds Percussion/Palpation: + abdomen tender (suprapubic) and abdomen soft; no sple nomegaly Musculoskeletal: Head/Neck/Chest: normocephalic and head atraumatic Skin: no rashes, warm and dry Neurologic: moves all extremities Psychiatric: A+Ox3, euthymic affect Results & Data Results & Data ([facility]) Vital Signs (Past 12 Hours) Vital Signs Temp Pulse Resp BP Pulse Ox O2 Del Method 02/02/22 22:48 36.8 C 69 18 93/55 L 100 Room Air (1) GERD (gastroesophageal reflux disease) Esophagitis presence: esophagitis presence not specified Qualified Code(s): K21.9 - Gastro-esophageal reflux disease without esophagitis
[2022-02-03] MEDS: SODIUM CHLORIDE 0.45 % 1,000 ML IV SCH ×2 (11:28→23:30)
[2022-02-03] MEDS: cefTRIAXone SODIUM 2,000 MG in DEXTROSE 5% 50 ML IV SCH (19:24)
[2022-02-03] MEDS: ENOXAPARIN INJ 40 MG/0.4 ML SYR SQ SCH ×2 (19:25→20:53)
[2022-02-03] MEDS: FOLIC ACID 1 MG TAB PO SCH (21:21)
[2022-02-03] MEDS: CHOLECALCIFEROL 1,000 UNITS 25 MCG TAB PO SCH (21:21)
[2022-02-04] MEDS: HYDROmorphone INJ 1 MG/ML SYRINGE IV PRN ×9 (01:52→22:40)
[2022-02-04] MEDS: diphenhydrAMINE 50 MG/ML VIAL IV PRN ×3 (06:17→18:46)
--- NOTE | 2022-02-04 07:33 | Hospitalist Progress Note ---
Date of Service February 04, 2022 Assessment & Plan (1) Sickle cell crisis: Plan: Patient presents with pain reminiscent of her previous sickle cell crises, as well as an acute uncomplicated UTI. Typically at home she is on fentanyl patch at 12mcg q3d, morphine 15mg PO q8h prn, and hydroxyurea. Sickle cell disorder acute pain episode Pain regimen as follows: Scheduled APAP Scheduled fentanyl patch Dilaudid 0.5mg IV q2h moderate (4-6/10) pain Dilaudid 1mg IV q2h prn severe (7-10/10) pain Naloxone available for patient as needed LUQ US (02/02) performed to evaluate for splenic sequestration in the setting of LUQ pain; results unremarkable 02/04: Hgb steadily trending downward over past few days though equivocal from yesterday; will transfuse 2u pRBC and recheck Hgb in afternoon Benadryl 50mg q6h prn itching Switch IVF from normal saline to half-normal saline to prevent sickling Zofran prn nausea Meclizine prn dizziness PT/OT ordered to prevent deconditioning Daily CBC, CMP Fever, UTI Suspect fever is secondary to urinary tract infection based on suprapubic tenderness and UA with leukocyte esterase, bacteria, and nitrites Urine culture: pansensitive E. coli Continue ceftriaxone q24h for uncomplicated UTI, sensitivities are pansensitive, consider transition from rocephin to cefdinir for 5 days total of treatment LUQ US showed mild atrophic spleen without any splenic lesions noted Currently appears well and is hemodynamically stable Transaminitis CMP today showed mildly elevated levels of AST and ALT at 120 and 98 respectively (02/04: AST improved to 69, ALT improved to 85) Could be due to sickling causing acute vaso-occlusion in liver which would be transient Due to frequent hospitalization and exposure to blood products, hepatitis panel ordered and pending Borderline personality disorder Patient's had previous psychiatric consultations for suicidal ideation and counseling for borderline personality disorder No home psych regimen Patient denies current suicidal ideation at this point in time GERD: continue famotidine Megaloblastic anemia: continue folate, B12 supplementation FEN: regular diet, 02/18 NSS @ 80mL/hr Code status: full code DVT ppx: glory PT/OT: ordered Dispo: med/surg (2) Fever: (3) Elevated liver enzymes: (4) Borderline personality disorder: (5) GERD (gastroesophageal reflux disease): (6) Avascular necrosis of bone of hip: Plan: -Stable, not having any hip pain at this time. Admission and Anticipated Discharge Date Admission Date: February 01, 2022 Supervising Physician Co-Signing Physician Notes I personally examined the patient and verified all amaro points of history and exam, discussed case, and agree with decision making with Dr German Feeling a little bit better since transfusion, but pain still fairly uncontrolled. Vitals noted, in general she is awake and alert pleasant appears fatigued and mildly uncomfortable. HEENT normocephalic atraumatic mucous membranes moist. Breathing unlabored no accessory muscle use good effort. Skin shows no rashes no pallor or icterus. Neuro without focal deficits. Sickle cell with acute pain crisisimproved some with transfusion, escalate hydromorphone to try to get ahead of the pain more. Continue supportive care. Otherwise as above. Subjective Patient seen and evaluated at bedside this morning. This morning, patient complains of fatigue and generalized pain which is worst in her lower back and legs bilaterally. Nausea is well-controlled; denies vomiting. Patient denies SOB, diarrhea, or other symptoms. Review of Systems Review of Systems: See HPI Physical Exam Physical Exam: Constitutional: tired-appearing, no acute distress CV: regular rhythm, no murmur appreciated, extremities well-perfused, no LE edema Resp: CTABL, no wheezes/rales/rhonchi appreciated, no increased work of breathing GI: soft, nondistended, mild generalized tenderness slightly worse in the LUQ, BS normoactive Neuro: alert, oriented, no focal neurologic deficit appreciated Results & Data Results & Data ([facility]) Vital Signs (Past 12 Hours) Vital Signs Temp Pulse Resp BP Pulse Ox O2 Del Method 02/03/22 21:15 CPAP 02/03/22 20:59 36.7 C 62 18 93/60 L 96 Room Air (1) GERD (gastroesophageal reflux disease) Esophagitis presence: esophagitis presence not specified Qualified Code(s): K21.9 - Gastro-esophageal reflux disease without esophagitis
[2022-02-04] MEDS ORDERED: SODIUM CHLORIDE 0.9% 250 ML IV PRN (08:02)
[2022-02-04] MEDS: HYDROXYUREA 500 MG CAP PO SCH ×2 (08:09→20:35)
[2022-02-04] MEDS: FAMOTIDINE 20 MG TAB PO SCH ×2 (08:09→20:37)
[2022-02-04] MEDS: ACETAMINOPHEN 500 MG TAB PO SCH ×3 (08:12→20:39)
[2022-02-04] MEDS: ONDANSETRON 4 MG OD TAB PO SCH ×3 (08:12→20:48)
[2022-02-04] MEDS: CHECK fentaNYL PATCH PLACEMENT SCH ×2 (08:14→15:08)
[2022-02-04 09:07] LABS: Hemoglobin 7.2 g/dl (12.0-16.0); Mean Corpuscular Hemoglobin 40.9 pg (25.0-34.0); Mean Corpuscular Hgb Conc 37.9 g/dL (32.0-36.0); Mean Platelet Volume 10.2 fL (9.4-12.3); Platelet Count 282 K/uL (130-400); RDW Coefficient of Variation 15.9 % (11.5-14.5); RDW Standard Deviation 62.6 fL (36.4-46.3); Red Blood Count 1.76 M/uL (3.93-5.22); White Blood Count 3.95 K/ul (4.8-10.8)
[2022-02-04 09:22] LABS: Basophils # (auto) 0.02 K/uL (0-0.2); Basophils % (auto) 0.5 %; Eosinophils # (auto) 0.11 K/uL (0-0.50); Eosinophils % (auto) 2.8 %; Immature Granulocytes # (auto) 0.01 K/uL (0.00-0.02); Immature Granulocytes % (auto) 0.3 %; Lymphocytes # (auto) 1.39 K/uL (1.2-3.4); Lymphocytes % (auto) 35.2 %; Monocytes # (auto) 0.17 K/uL (0.24-0.82); Monocytes % (auto) 4.3 %; Neutrophils # (auto) 2.25 K/uL (1.4-6.5); Neutrophils % (auto) 56.9 %; Polychromasia 1+; Sickle Cells 1+; Target Cells 2+
[2022-02-04 09:23] LABS: Alanine Aminotransferase 85 U/L (7-52); Albumin Level 3.5 gm/dl (3.4-5.0); Alkaline Phosphatase 62 U/L (34-104); Anion Gap 5 (3-11); Aspartate Aminotransferase 69 U/L (13-39); BUN Creatinine Ratio 4.5 (10-20); Bilirubin,Total 0.7 mg/dl (0.2-1.0); Blood Urea Nitrogen 2 mg/dl (6-23); Calcium 8.4 mg/dl (8.5-10.1); Carbon Dioxide 25 mmol/L (21-32); Chloride 107 mmol/L (98-107); Creatinine Clr Calc Pharmacy 186.2 ml/min; Est GFR (African American) > 150.0 ml/min; Est GFR (Non-African American) 142.3 ml/min; Globulin 3.4 gm/dl (2.5-4.0); Glucose 94 mg/dl (70-99(Fasting)); Potassium 3.6 mmol/L (3.5-5.1); Sodium 137 mmol/L (136-145); Total Protein 6.9 gm/dl (6.0-8.3)
[2022-02-04] MEDS: CYANOCOBALAMIN (B-12) 100 MCG TABLET PO SCH (10:48)
[2022-02-04] MEDS: SODIUM CHLORIDE 0.45 % 1,000 ML IV SCH (12:55)
[2022-02-04 18:59] LABS: Hematocrit (blood only) 25.4 % (34.1-44.9); Hemoglobin 9.3 g/dl (12.0-16.0)
--- NOTE | 2022-02-04 19:36 | Billing Data ---
Date of Service February 04, 2022 Coding Level of Care Code 10204 Subseq Hosp Care Lvl 3
[2022-02-04] MEDS: cefTRIAXone SODIUM 2,000 MG in DEXTROSE 5% 50 ML IV SCH (19:40)
[2022-02-04] MEDS: fentaNYL 12 MCG/HR TDSY TD SCH (20:34)
[2022-02-04] MEDS: CEFDINIR 300 MG CAP PO SCH (20:36)
[2022-02-04] MEDS: FOLIC ACID 1 MG TAB PO SCH (20:37)
[2022-02-04] MEDS: CHOLECALCIFEROL 1,000 UNITS 25 MCG TAB PO SCH (20:37)
[2022-02-04] MEDS: ENOXAPARIN INJ 40 MG/0.4 ML SYR SQ SCH (20:40)
[2022-02-05] MEDS: CHECK fentaNYL PATCH PLACEMENT SCH ×3 (00:47→14:46)
[2022-02-05] MEDS: HYDROmorphone INJ 1 MG/ML SYRINGE IV PRN ×9 (03:43→22:30)
[2022-02-05] MEDS: SODIUM CHLORIDE 0.45 % 1,000 ML IV SCH ×3 (03:48→14:46)
[2022-02-05] MEDS: diphenhydrAMINE 50 MG/ML VIAL IV PRN ×4 (04:25→22:54)
--- NOTE | 2022-02-05 08:15 | Hospitalist Progress Note ---
Date of Service February 05, 2022 Assessment & Plan (1) Sickle cell crisis: Plan: Patient presents with pain reminiscent of her previous sickle cell crises, as well as an acute uncomplicated UTI. Typically at home she is on fentanyl patch at 12mcg q3d, morphine 15mg PO q8h prn, and hydroxyurea. Sickle cell disorder acute pain episode, megaloblastic anemia Pain regimen as follows: Scheduled APAP Scheduled fentanyl patch Dilaudid 0.5mg IV q2h moderate (4-6/10) pain Dilaudid 1mg IV q2h prn severe (7-10/10) pain Naloxone available for patient as needed LUQ US (02/02) performed to evaluate for splenic sequestration in the setting of LUQ pain; results unremarkable Benadryl 50mg q6h prn itching Switch IVF from normal saline to half-normal saline to prevent sickling Zofran prn nausea Meclizine prn dizziness Continue folate, B12 supplementation PT/OT ordered to prevent deconditioning Daily CBC, CMP 02/04: Hgb steadily trending downward over past few days though equivocal from yesterday; will transfuse 2u pRBC 02/05: repeat Hgb 9.3 Fever, UTI Suspect fever is secondary to urinary tract infection based on suprapubic tenderness and UA with leukocyte esterase, bacteria, and nitrites Urine culture: pansensitive E. coli Continue ceftriaxone q24h for uncomplicated UTI, sensitivities are pansensitive, consider transition from rocephin to cefdinir for 5 days total of treatment LUQ US showed mild atrophic spleen without any splenic lesions noted Currently appears well and is hemodynamically stable Transaminitis CMP today showed mildly elevated levels of AST and ALT at 120 and 98 respectively (02/04: AST improved to 69, ALT improved to 85) Could be due to sickling causing acute vaso-occlusion in liver which would be transient Due to frequent hospitalization and exposure to blood products, hepatitis panel ordered and pending Borderline personality disorder Patient's had previous psychiatric consultations for suicidal ideation and counseling for borderline personality disorder No home psych regimen Patient denies current suicidal ideation at this point in time GERD: continue famotidine FEN: regular diet, 02/18 NSS @ 80mL/hr Code status: full code DVT ppx: glory PT/OT: ordered Dispo: med/surg (2) Fever: (3) Elevated liver enzymes: (4) Borderline personality disorder: (5) GERD (gastroesophageal reflux disease): (6) Avascular necrosis of bone of hip: Plan: -Stable, not having any hip pain at this time. Admission and Anticipated Discharge Date Admission Date: February 01, 2022 Supervising Physician Co-Signing Physician Notes I personally examined the patient and verified all amaro points of history and exam, discussed case, and agree with decision making with Dr German Pain probably about the same, but also notes that the change in dosing helps more, and she does not really feel the need for any further changes in her pain regimen at this time. Is fairly constipated. Is very interested in proceeding with total hip, and would like to discuss further with orthopedics. Vitals noted, in general she is awake and alert pleasant appears fatigued and mildly uncomfortable. HEENT normocephalic atraumatic mucous membranes moist. Breathing unlabored no accessory muscle use good effort. Skin shows no rashes no pallor or icterus. Neuro without focal deficits. Sickle cell with acute pain crisisimproved some with transfusion, higher dose of Dilaudid helping. Still on mag citrate along national recall, Mylanta 30 mL p.o. 4 times daily as well as senna in the a.m. Will discuss with orthopedics about inpatient versus expedited outpatient evaluation. Subjective Patient seen and evaluated at bedside this morning. Today, patient feels about the same as yesterday, complaining of moderate generalized pain worse in her back and legs. Denies nausea - tolerating PO well. Eager to work with PT today. No additional concerns or complaints. Patient denies SOB, lightheadedness, dizziness, and diarrhea. Review of Systems Review of Systems: See HPI Physical Exam Physical Exam: Constitutional: well-appearing, no acute distress, sitting up in bed CV: regular rhythm, no murmur appreciated, extremities well-perfused, no LE edema Resp: CTABL, no wheezes/rales/rhonchi appreciated, no increased work of breathing GI: soft, nondistended, mild generalized tenderness slightly worse in the LUQ Neuro: alert, oriented, no focal neurologic deficit appreciated Results & Data Results & Data ([facility]) Vital Signs (Past 12 Hours) Vital Signs Temp Pulse Resp BP Pulse Ox O2 Del Method 02/05/22 07:42 36.7 C 60 14 109/70 99 Room Air 02/04/22 20:43 36.3 C L 54 L 16 105/69 100 Room Air Resident Activity Tracking Resident Involvement: Resident Care Provided Care Provided: Adult Hospital Medicine (1) GERD (gastroesophageal reflux disease) Esophagitis presence: esophagitis presence not specified Qualified Code(s): K21.9 - Gastro-esophageal reflux disease without esophagitis
[2022-02-05] MEDS: HYDROXYUREA 500 MG CAP PO SCH ×2 (08:38→19:51)
[2022-02-05] MEDS: CEFDINIR 300 MG CAP PO SCH ×2 (08:40→19:55)
[2022-02-05] MEDS: CYANOCOBALAMIN (B-12) 100 MCG TABLET PO SCH (08:40)
[2022-02-05] MEDS: FAMOTIDINE 20 MG TAB PO SCH ×2 (08:40→19:56)
[2022-02-05] MEDS: ACETAMINOPHEN 500 MG TAB PO SCH ×3 (08:47→19:55)
[2022-02-05] MEDS: ONDANSETRON 4 MG OD TAB PO SCH ×3 (08:47→19:56)
[2022-02-05] MEDS: POLYETHYLENE (MIRALAX) 17 GM PACK PO SCH (10:04)
[2022-02-05] MEDS ORDERED: HYDROmorphone INJ 0.5 MG/0.5 ML SYR IV STA (13:22)
[2022-02-05] MEDS ORDERED: LACTATED RINGER'S 500 ML IV ONE (15:40)
[2022-02-05 16:02] LABS: HBSAG NON-REACTIVE (NON-REACTIVE); Hepatitis A Antibody IgM NON-REACTIVE (NON-REACTIVE); Hepatitis B Core Antibody IgM NON-REACTIVE (NON-REACTIVE)
[2022-02-05] MEDS: ENOXAPARIN INJ 40 MG/0.4 ML SYR SQ SCH (18:26)
--- NOTE | 2022-02-05 19:23 | Billing Data ---
Date of Service February 05, 2022 Coding Level of Care Code 66133 Subseq Hosp Care Lvl 3
[2022-02-05] MEDS: FOLIC ACID 1 MG TAB PO SCH (19:54)
[2022-02-05] MEDS: CHOLECALCIFEROL 1,000 UNITS 25 MCG TAB PO SCH (19:55)
[2022-02-05] MEDS: ALUMINUM/MAGNESIUM/SIMETH (MAALOX MAX) 30 ML UDC PO SCH (19:58)
[2022-02-06] MEDS: HYDROmorphone INJ 1 MG/ML SYRINGE IV PRN ×7 (00:29→20:30)
[2022-02-06] MEDS: CHECK fentaNYL PATCH PLACEMENT SCH ×4 (00:30→23:08)
[2022-02-06] MEDS: ALUMINUM/MAGNESIUM/SIMETH (MAALOX MAX) 30 ML UDC PO SCH ×4 (01:29→20:26)
--- NOTE | 2022-02-06 06:57 | Hospitalist Progress Note ---
Date of Service February 06, 2022 Assessment & Plan (1) Sickle cell crisis: Plan: Patient presents with pain reminiscent of her previous sickle cell crises, as well as an acute uncomplicated UTI. Typically at home she is on fentanyl patch at 12mcg q3d, morphine 15mg PO q8h prn, and hydroxyurea. Sickle cell disorder acute pain episode, megaloblastic anemia Pain regimen as follows: APAP scheduled Fentanyl patch scheduled Oxycodone 5mg qhs scheduled to prevent needing to play catch-up in the AM Dilaudid 1.5mg IV q2h moderate/severe (4+/10) pain Naloxone available for patient as needed LUQ US (02/02) performed to evaluate for splenic sequestration in the setting of LUQ pain; results unremarkable Benadryl 50mg q6h prn itching Switch IVF from normal saline to half-normal saline to prevent sickling Zofran prn nausea Meclizine prn dizziness Continue folate, B12 supplementation PT/OT ordered to prevent deconditioning 02/04: Hgb steadily trending downward; transfused 2u pRBC; Hgb appropriately ann to the mid-'s Trend daily CBC, CMP Fever, UTI, probable sepsis on admission now resolved Suspect fever is secondary to urinary tract infection based on suprapubic tenderness and UA with leukocyte esterase, bacteria, and nitrites Urine culture: pansensitive E. coli Continue ceftriaxone q24h for uncomplicated UTI, sensitivities are pansensitive, consider transition from rocephin to cefdinir for 5 days total of treatment LUQ US showed mild atrophic spleen without any splenic lesions noted Currently appears well and is hemodynamically stable Transaminitis CMP today showed mildly elevated levels of AST and ALT at 120 and 98 respectively (02/04: AST improved to 69, ALT improved to 85) Could be due to sickling causing acute vaso-occlusion in liver which would be transient Due to frequent hospitalization and exposure to blood products, hepatitis panel ordered and pending Borderline personality disorder Patient's had previous psychiatric consultations for suicidal ideation and counseling for borderline personality disorder No home psych regimen Patient denies current suicidal ideation at this point in time GERD: continue famotidine FEN: regular diet, 1/ NSS @ 80mL/hr Code status: full code DVT ppx: glory PT/OT: ordered Dispo: med/surg (2) Fever: (3) Elevated liver enzymes: (4) Borderline personality disorder: (5) GERD (gastroesophageal reflux disease): (6) Avascular necrosis of bone of hip: Plan: -Stable, not having any hip pain at this time. Admission and Anticipated Discharge Date Admission Date: February 01, 2022 Supervising Physician Co-Signing Physician Notes I personally examined the patient and verified all amaro points of history and exam, discussed case, and agree with decision making with Dr German Notes that pain is actually starting to do better. Feels like with the higher dose of Dilaudid she is starting to get ahead of things. Discussed orthopedic follow-up for evaluation for hip replacementsDrLetha Castrejon noted it would actually be much better to be on to see her in the office in order to do the appropriate preop testing most efficiently, and also that while he could see her in the hospital, he is away for the rest of the week. He noted he would have his nurse call the patient to expedite outpatient follow-up. Vitals noted, in general she is awake and alert pleasant appears fatigued and mildly uncomfortable. HEENT normocephalic atraumatic mucous membranes moist. Breathing unlabored no accessory muscle use good effort. Skin shows no rashes no pallor or icterus. Neuro without focal deficits. Sickle cell with acute pain crisisimproved some with transfusion, higher dose of Dilaudid helping. improving overall. close outpt ortho f/u for avascular necrosis. likely precipitated by UTI w sepsis present on admission - now treated and improving. hopefully home soon. Subjective Patient seen and evaluated at bedside this morning. Patient feels her pain is a bit better than yesterday, and her nausea has resolved. Tolerating PO well - during the interview patient was up in bed eating lunch. Patient is eager to work with PT/OT today and is hoping to feel well enough to be discharged soon. Patient says her current pain regimen is adequate and that she doesn't need any escalation, but she also does not feel ready enough yet to deescalate the current regimen/transition to an outpatient regimen. Patient denies SOB, nausea, vomiting, lightheadedness, dizziness, and diarrhea. Physical Exam Physical Exam: Constitutional: well-appearing, no acute distress, sitting up in bed eating lunch CV: regular rhythm, no murmur appreciated, extremities well-perfused, no LE edema Resp: CTABL, no wheezes/rales/rhonchi appreciated, no increased work of breathi ng GI: soft, nondistended, slight LUQ tenderness Neuro: alert, oriented, no focal neurologic deficit appreciated Results & Data Results & Data ([facility]) Vital Signs (Past 12 Hours) Vital Signs Pulse BP 02/05/22 19:43 61 114/74 Resident Activity Tracking Resident Involvement: Resident Care Provided Care Provided: Adult Hospital Medicine (1) GERD (gastroesophageal reflux disease) Esophagitis presence: esophagitis presence not specified Qualified Code(s): K21.9 - Gastro-esophageal reflux disease without esophagitis
[2022-02-06] MEDS: CEFDINIR 300 MG CAP PO SCH ×2 (08:29→20:27)
[2022-02-06] MEDS: FAMOTIDINE 20 MG TAB PO SCH ×2 (08:30→20:27)
[2022-02-06] MEDS: ACETAMINOPHEN 500 MG TAB PO SCH ×3 (08:30→20:28)
[2022-02-06] MEDS: HYDROXYUREA 500 MG CAP PO SCH ×2 (08:30→20:27)
[2022-02-06] MEDS: CYANOCOBALAMIN (B-12) 100 MCG TABLET PO SCH (08:30)
[2022-02-06] MEDS: POLYETHYLENE (MIRALAX) 17 GM PACK PO SCH (08:31)
[2022-02-06] MEDS: SENNA 8.6 MG TAB PO SCH (08:31)
[2022-02-06 08:33] LABS: Hematocrit (blood only) 25.7 % (34.1-44.9); Hemoglobin 9.6 g/dl (12.0-16.0); Mean Corpuscular Hemoglobin 38.7 pg (25.0-34.0); Mean Corpuscular Hgb Conc 37.4 g/dL (32.0-36.0); Mean Corpuscular Volume 103.6 fL (80.0-100.0); Mean Platelet Volume 10.5 fL (9.4-12.3); Nucleated RBC # (auto) 0.09 K/uL (0-0); Platelet Count 338 K/uL (130-400); RDW Coefficient of Variation 19.9 % (11.5-14.5); RDW Standard Deviation 74.4 fL (36.4-46.3); Red Blood Count 2.48 M/uL (3.93-5.22); White Blood Count 4.57 K/ul (4.8-10.8)
[2022-02-06] MEDS: ONDANSETRON 4 MG OD TAB PO SCH ×3 (08:40→20:34)
[2022-02-06 09:03] LABS: Anion Gap 3 (3-11); Blood Urea Nitrogen 6 mg/dl (6-23); Calcium 8.5 mg/dl (8.5-10.1); Carbon Dioxide 31 mmol/L (21-32); Chloride 105 mmol/L (98-107); Creatinine Clr Calc Pharmacy 178.1 ml/min; Est GFR (African American) > 150.0 ml/min; Est GFR (Non-African American) 140.2 ml/min; Glucose 92 mg/dl (70-99(Fasting)); Sodium 139 mmol/L (136-145)
[2022-02-06] MEDS: diphenhydrAMINE 50 MG/ML VIAL IV PRN ×3 (09:54→22:45)
[2022-02-06] MEDS: ENOXAPARIN INJ 40 MG/0.4 ML SYR SQ SCH (18:24)
--- NOTE | 2022-02-06 18:58 | Billing Data ---
Date of Service February 06, 2022 Coding Level of Care Code 91443 Subseq Hosp Care Lvl 3
[2022-02-06] MEDS: SODIUM CHLORIDE 0.45 % 1,000 ML IV SCH (19:19)
[2022-02-06] MEDS: CHOLECALCIFEROL 1,000 UNITS 25 MCG TAB PO SCH (20:27)
[2022-02-06] MEDS: FOLIC ACID 1 MG TAB PO SCH (20:27)
[2022-02-06] MEDS: oxyCODONE HCL IR 5 MG TAB (IMMEDIATE RELEASE) PO SCH (21:33)
[2022-02-07] MEDS: SODIUM CHLORIDE 0.45 % 1,000 ML IV SCH ×2 (00:40→14:32)
[2022-02-07] MEDS: ALUMINUM/MAGNESIUM/SIMETH (MAALOX MAX) 30 ML UDC PO SCH ×4 (01:01→19:40)
[2022-02-07] MEDS: HYDROmorphone INJ 1 MG/ML SYRINGE IV PRN ×3 (01:05→06:15)
[2022-02-07] MEDS: diphenhydrAMINE 50 MG/ML VIAL IV PRN ×4 (04:40→22:40)
--- NOTE | 2022-02-07 06:56 | Hospitalist Progress Note ---
Date of Service February 07, 2022 Assessment & Plan (1) Sickle cell crisis: Plan: Patient presents with pain reminiscent of her previous sickle cell crises, as well as an acute uncomplicated UTI. Typically at home she is on fentanyl patch at 12mcg q3d, morphine 15mg PO q8h prn, and hydroxyurea. Sickle cell disorder acute pain episode, megaloblastic anemia -Pain regimen as follows: - APAP scheduled - Fentanyl patch scheduled - Oxycodone 5mg qhs scheduled to prevent needing to play catch-up in the AM - Dilaudid 1.5mg IV q2h moderate/severe (4+/10) pain - Naloxone available for patient as needed - LUQ US (02/02) performed to evaluate for splenic sequestration in the setting of LUQ pain; results unremarkable - Benadryl 50mg q6h prn itching - Switch IVF from normal saline to half-normal saline to prevent sickling - Zofran prn nausea - Meclizine prn dizziness - Continue folate, B12 supplementation - PT/OT ordered to prevent deconditioning - 02/04: Hgb steadily trending downward; transfused 2u pRBC; Hgb appropriately ann to the mid-9's - Trend daily CBC, CMP Fever, UTI - Suspect fever is secondary to urinary tract infection based on suprapubic tenderness and UA with leukocyte esterase, bacteria, and nitrites - Urine culture: pansensitive E. coli - Continue ceftriaxone q24h for uncomplicated UTI, sensitivities are pansensitive, consider transition from rocephin to cefdinir for 5 days total of treatment - LUQ US showed mild atrophic spleen without any splenic lesions noted - Currently appears well and is hemodynamically stable Transaminitis - CMP today showed mildly elevated levels of AST and ALT at 120 and 98 respectively (02/04: AST improved to 69, ALT improved to 85) - Could be due to sickling causing acute vaso-occlusion in liver which would be transient - Due to frequent hospitalization and exposure to blood products, hepatitis panel ordered and pending Borderline personality disorder - Patient's had previous psychiatric consultations for suicidal ideation and counseling for borderline personality disorder - No home psych regimen - Patient denies current suicidal ideation at this point in time GERD: continue famotidine FEN: regular diet, 1/2 NSS @ 80mL/hr Code status: full code DVT ppx: lovenox Dispo: med/surg (2) Fever: (3) Elevated liver enzymes: (4) Borderline personality disorder: (5) GERD (gastroesophageal reflux disease): (6) Avascular necrosis of bone of hip: Plan: -Stable, not having any hip pain at this time. Admission and Anticipated Discharge Date Admission Date: February 01, 2022 Supervising Physician Co-Signing Physician Notes Patient seen and examined at bedside. Had extensive discussion during rounds with Dr. Carballo. Miss Early presents with sickle cell crisis. Patient has required multiple hospitalizations for this, and her pain has been difficult to control. Patient continues to require dilaudid IV. Currently asking for meclizine. I reviwed above note and agree with it. Subjective Patient seen at the bedside this morning saying her pain is better however she feels very tired as she was unable to sleep last night due to IV machine beeping all night. Denies chest pain, shortness of breath, fever, chills. Review of Systems Review of Systems: See HPI Physical Exam Constitutional: WD/WN, vitals as above Eyes: PERRL, conjunctivae normal, anicteric sclerae Respiratory: normal respiratory effort, lungs clear to auscultation Cardiovascular: RRR, no murmur, no edema Psychiatric: A+Ox3, euthymic affect Results & Data Results & Data ([facility]) Vital Signs (Past 12 Hours) Vital Signs Temp Pulse Resp BP Pulse Ox O2 Del Method 02/06/22 22:39 36.7 C 72 18 110/70 99 Room Air Resident Activity Tracking Resident Involvement: Resident Care Provided Care Provided: Adult Hospital Medicine (1) GERD (gastroesophageal reflux disease) Esophagitis presence: esophagitis presence not specified Qualified Code(s): K21.9 - Gastro-esophageal reflux disease without esophagitis
[2022-02-07] MEDS ORDERED: Nursing to Pharmacy Communication SCH (08:45)
[2022-02-07] MEDS: HYDROmorphone INJ 0.5 MG/0.5 ML SYR IV PRN ×6 (08:51→22:51)
[2022-02-07] MEDS: HYDROXYUREA 500 MG CAP PO SCH ×2 (09:09→20:37)
[2022-02-07] MEDS: SENNA 8.6 MG TAB PO SCH (09:14)
[2022-02-07] MEDS: FAMOTIDINE 20 MG TAB PO SCH ×2 (09:15→20:37)
[2022-02-07] MEDS: ACETAMINOPHEN 500 MG TAB PO SCH ×3 (09:15→20:59)
[2022-02-07] MEDS: CEFDINIR 300 MG CAP PO SCH ×2 (09:15→20:35)
[2022-02-07] MEDS: CYANOCOBALAMIN (B-12) 100 MCG TABLET PO SCH (09:15)
[2022-02-07 09:16] LABS: Hematocrit (blood only) 25.6 % (34.1-44.9); Hemoglobin 9.4 g/dl (12.0-16.0)
[2022-02-07] MEDS: CHECK fentaNYL PATCH PLACEMENT SCH ×2 (09:17→15:40)
[2022-02-07] MEDS: POLYETHYLENE (MIRALAX) 17 GM PACK PO SCH (09:17)
[2022-02-07 09:41] LABS: Alanine Aminotransferase 42 U/L (7-52); Albumin Level 3.5 gm/dl (3.4-5.0); Alkaline Phosphatase 60 U/L (34-104); Anion Gap 4 (3-11); Aspartate Aminotransferase 25 U/L (13-39); BUN Creatinine Ratio 11.9 (10-20); Bilirubin,Total 0.7 mg/dl (0.2-1.0); Blood Urea Nitrogen 5 mg/dl (6-23); Calcium 8.7 mg/dl (8.5-10.1); Carbon Dioxide 29 mmol/L (21-32); Chloride 105 mmol/L (98-107); Est GFR (African American) > 150.0 ml/min; Est GFR (Non-African American) 144.5 ml/min; Globulin 3.5 gm/dl (2.5-4.0); Glucose 102 mg/dl (70-99(Fasting)); Potassium 3.5 mmol/L (3.5-5.1); Sodium 138 mmol/L (136-145)
[2022-02-07] MEDS: ONDANSETRON 4 MG OD TAB PO SCH ×3 (10:42→20:57)
[2022-02-07] MEDS: fentaNYL 12 MCG/HR TDSY TD SCH (18:31)
[2022-02-07] MEDS: ENOXAPARIN INJ 40 MG/0.4 ML SYR SQ SCH (18:32)
[2022-02-07] MEDS: CHOLECALCIFEROL 1,000 UNITS 25 MCG TAB PO SCH (20:36)
[2022-02-07] MEDS: FOLIC ACID 1 MG TAB PO SCH (20:38)
[2022-02-07] MEDS: oxyCODONE HCL IR 5 MG TAB (IMMEDIATE RELEASE) PO SCH (20:57)
[2022-02-08] MEDS: CHECK fentaNYL PATCH PLACEMENT SCH ×3 (00:38→16:34)
[2022-02-08] MEDS: ALUMINUM/MAGNESIUM/SIMETH (MAALOX MAX) 30 ML UDC PO SCH ×4 (03:26→20:57)
[2022-02-08] MEDS: HYDROmorphone INJ 0.5 MG/0.5 ML SYR IV PRN ×7 (04:34→21:10)
[2022-02-08] MEDS: SODIUM CHLORIDE 0.45 % 1,000 ML IV SCH ×2 (05:42→17:55)
--- NOTE | 2022-02-08 07:02 | Hospitalist Progress Note ---
Date of Service February 08, 2022 Assessment & Plan (1) Sickle cell crisis: Plan: Patient presents with pain reminiscent of her previous sickle cell crises, as well as an acute uncomplicated UTI. Typically at home she is on fentanyl patch at 12mcg q3d, morphine 15mg PO q8h prn, and hydroxyurea. Sickle cell disorder acute pain episode, megaloblastic anemia -Pain regimen as follows: - APAP scheduled - Fentanyl patch scheduled - Oxycodone 5mg qhs scheduled to prevent needing to play catch-up in the AM - Dilaudid 2mg IV q2h moderate/severe (4+/10) pain - Naloxone available for patient as needed - LUQ US (02/02) performed to evaluate for splenic sequestration in the setting of LUQ pain; results unremarkable - Benadryl 50mg q6h prn itching - Switch IVF from normal saline to half-normal saline to prevent sickling - Zofran prn nausea - Meclizine prn dizziness - Continue folate, B12 supplementation - PT/OT ordered to prevent deconditioning - 02/04: Hgb steadily trending downward; transfused 2u pRBC; Hgb appropriately ann to the mid-9's - Trend daily CBC, CMP Fever, UTI - Suspect fever is secondary to urinary tract infection based on suprapubic tenderness and UA with leukocyte esterase, bacteria, and nitrites - Urine culture: pansensitive E. coli - Continue ceftriaxone q24h for uncomplicated UTI, sensitivities are pansensitive, consider transition from rocephin to cefdinir for 5 days total of treatment - LUQ US showed mild atrophic spleen without any splenic lesions noted - Currently appears well and is hemodynamically stable Transaminitis - CMP today showed mildly elevated levels of AST and ALT at 120 and 98 respectively (02/04: AST improved to 69, ALT improved to 85) - Could be due to sickling causing acute vaso-occlusion in liver which would be transient - Due to frequent hospitalization and exposure to blood products, hepatitis panel ordered and pending Borderline personality disorder - Patient's had previous psychiatric consultations for suicidal ideation and counseling for borderline personality disorder - No home psych regimen - Patient denies current suicidal ideation at this point in time GERD: continue famotidine FEN: regular diet, 1/2 NSS @ 80mL/hr Code status: full code DVT ppx: lovenox Dispo: med/surg (2) Fever: (3) Elevated liver enzymes: (4) Borderline personality disorder: (5) GERD (gastroesophageal reflux disease): (6) Avascular necrosis of bone of hip: Plan: -Stable, not having any hip pain at this time. Admission and Anticipated Discharge Date Admission Date: February 01, 2022 Supervising Physician Co-Signing Physician Notes Patient seen and examined at bedside. Had extensive discussion during rounds with Dr. Carballo. Miss Early presents with sickle cell crisis. Patient has required multiple hospitalizations for this, and her pain has been difficult to control. Patient continues to require dilaudid IV. Patient appears comfortable, but not ready for discharge. I reviewed above note and agree with it. Subjective Patient seen at the bedside this morning saying her pain is worse today at the lower back and upper legs. She was able to sleep better last night due to being disconnected from the IV machine. Denies fevers, chills. Review of Systems Review of Systems: See HPI Physical Exam Constitutional: WD/WN, vitals as above Eyes: PERRL, conjunctivae normal, anicteric sclerae Respiratory: normal respiratory effort, lungs clear to auscultation Cardiovascular: RRR, no murmur, no edema Psychiatric: A+Ox3, euthymic affect Results & Data Results & Data ([facility]) Vital Signs (Past 12 Hours) Vital Signs Temp Pulse Resp BP Pulse Ox O2 Del Method 02/07/22 21:44 36.8 C 74 16 87/52 L 100 Room Air Resident Activity Tracking Resident Involvement: Resident Care Provided Care Provided: Adult Hospital Medicine (1) GERD (gastroesophageal reflux disease) Esophagitis presence: esophagitis presence not specified Qualified Code(s): K21.9 - Gastro-esophageal reflux disease without esophagitis
[2022-02-08] MEDS: FAMOTIDINE 20 MG TAB PO SCH ×2 (09:00→21:00)
[2022-02-08] MEDS: CEFDINIR 300 MG CAP PO SCH ×2 (09:00→20:58)
[2022-02-08] MEDS: HYDROXYUREA 500 MG CAP PO SCH ×2 (09:01→21:02)
[2022-02-08] MEDS: SENNA 8.6 MG TAB PO SCH (09:01)
[2022-02-08] MEDS: CYANOCOBALAMIN (B-12) 100 MCG TABLET PO SCH (09:02)
[2022-02-08] MEDS: POLYETHYLENE (MIRALAX) 17 GM PACK PO SCH (09:04)
[2022-02-08] MEDS: ACETAMINOPHEN 500 MG TAB PO SCH ×3 (09:10→21:03)
[2022-02-08] MEDS: ONDANSETRON 4 MG OD TAB PO SCH ×3 (09:10→21:09)
[2022-02-08] MEDS: diphenhydrAMINE 50 MG/ML VIAL IV PRN ×2 (10:24→21:47)
[2022-02-08] MEDS: MECLIZINE HCL 25 MG TAB PO PRN ×2 (14:59→21:47)
[2022-02-08] MEDS: CHOLECALCIFEROL 1,000 UNITS 25 MCG TAB PO SCH (20:59)
[2022-02-08] MEDS: FOLIC ACID 1 MG TAB PO SCH (21:01)
[2022-02-08] MEDS: ENOXAPARIN INJ 40 MG/0.4 ML SYR SQ SCH (21:03)
[2022-02-08] MEDS: oxyCODONE HCL IR 5 MG TAB (IMMEDIATE RELEASE) PO SCH (21:09)
[2022-02-09] MEDS: HYDROmorphone INJ 0.5 MG/0.5 ML SYR IV PRN ×7 (00:06→22:04)
[2022-02-09] MEDS: CHECK fentaNYL PATCH PLACEMENT SCH ×3 (00:18→17:48)
[2022-02-09] MEDS: ALUMINUM/MAGNESIUM/SIMETH (MAALOX MAX) 30 ML UDC PO SCH ×4 (01:35→21:54)
[2022-02-09] MEDS: SODIUM CHLORIDE 0.45 % 1,000 ML IV SCH ×2 (05:57→17:48)
[2022-02-09] MEDS: diphenhydrAMINE 50 MG/ML VIAL IV PRN ×3 (07:18→20:53)
--- NOTE | 2022-02-09 07:50 | Hospitalist Progress Note ---
Date of Service February 09, 2022 Assessment & Plan (1) Sickle cell crisis: Plan: Patient presents with pain reminiscent of her previous sickle cell crises, as well as an acute uncomplicated UTI. Typically at home she is on fentanyl patch at 12mcg q3d, morphine 15mg PO q8h prn, and hydroxyurea. Sickle cell disorder acute pain episode, megaloblastic anemia -Pain regimen as follows: - APAP scheduled - Fentanyl patch scheduled - Oxycodone 5mg qhs scheduled to prevent needing to play catch-up in the AM - Dilaudid 2mg IV q2h moderate/severe (4+/10) pain - Naloxone available for patient as needed - LUQ US (02/02) performed to evaluate for splenic sequestration in the setting of LUQ pain; results unremarkable - Benadryl 50mg q6h prn itching - Switch IVF from normal saline to half-normal saline to prevent sickling - Zofran prn nausea - Meclizine prn dizziness - Continue folate, B12 supplementation - PT/OT ordered to prevent deconditioning - 02/04: Hgb steadily trending downward; transfused 2u pRBC; Hgb appropriately ann to the mid-9's - Trend daily CBC, CMP Fever, UTI - Suspect fever is secondary to urinary tract infection based on suprapubic tenderness and UA with leukocyte esterase, bacteria, and nitrites - Urine culture: pansensitive E. coli - Continue ceftriaxone q24h for uncomplicated UTI, sensitivities are pansensitive, consider transition from rocephin to cefdinir for 5 days total of treatment - LUQ US showed mild atrophic spleen without any splenic lesions noted - Currently appears well and is hemodynamically stable Transaminitis - CMP today showed mildly elevated levels of AST and ALT at 120 and 98 respectively (02/04: AST improved to 69, ALT improved to 85) - Could be due to sickling causing acute vaso-occlusion in liver which would be transient - Due to frequent hospitalization and exposure to blood products, hepatitis panel ordered and pending Borderline personality disorder - Patient's had previous psychiatric consultations for suicidal ideation and counseling for borderline personality disorder - No home psych regimen - Patient denies current suicidal ideation at this point in time GERD: continue famotidine FEN: regular diet, 1/2 NSS @ 80mL/hr Code status: full code DVT ppx: lovenox Dispo: med/surg (2) Fever: (3) Elevated liver enzymes: (4) Borderline personality disorder: (5) GERD (gastroesophageal reflux disease): (6) Avascular necrosis of bone of hip: Plan: -Stable, not having any hip pain at this time. Admission and Anticipated Discharge Date Admission Date: February 01, 2022 Supervising Physician Co-Signing Physician Notes Patient seen and examined at bedside. Had extensive discussion during rounds with Dr. Carballo. Miss Early presents with sickle cell crisis. Patient has required multiple hospitalizations for this, and her pain has been difficult to control. Patient continues to require dilaudid IV 2mg IV q2h. She has received about 12mg of IV dilaudid as well as 5 mg of oxycodone in past 24 hours. Patient appears comfortable, but states her pain is not controlled enough for discharge. Hemoglobin has been stable. I reviewed above note and agree with it. Subjective Patient seen at the bedside today saying she does not feel much better today on the 2mg of dilaudid for pain management as opposed to yesterday. She said she will wait it out another day to see if pain gets better. She says she has used the meclizine and had some improvement in dizziness with it. Review of Systems Review of Systems: See HPI Physical Exam Constitutional: WD/WN, vitals as above Eyes: PERRL, conjunctivae normal, anicteric sclerae Respiratory: normal respiratory effort, lungs clear to auscultation Cardiovascular: RRR, no murmur, no edema Psychiatric: A+Ox3, euthymic affect Results & Data Results & Data ([facility]) Vital Signs (Past 12 Hours) Vital Signs Temp Pulse Resp BP Pulse Ox O2 Del Method 02/09/22 07:33 36.9 C 68 16 125/74 94 Room Air 02/08/22 22:38 36.6 C 84 16 131/84 97 Room Air Resident Activity Tracking Resident Involvement: Resident Care Provided Care Provided: Adult Hospital Medicine (1) GERD (gastroesophageal reflux disease) Esophagitis presence: esophagitis presence not specified Qualified Code(s): K21.9 - Gastro-esophageal reflux disease without esophagitis
[2022-02-09] MEDS: HYDROXYUREA 500 MG CAP PO SCH ×2 (09:25→21:58)
[2022-02-09] MEDS: CYANOCOBALAMIN (B-12) 100 MCG TABLET PO SCH (09:25)
[2022-02-09] MEDS: CEFDINIR 300 MG CAP PO SCH ×2 (09:26→21:55)
[2022-02-09] MEDS: SENNA 8.6 MG TAB PO SCH (09:26)
[2022-02-09] MEDS: FAMOTIDINE 20 MG TAB PO SCH ×2 (09:26→21:57)
[2022-02-09] MEDS: POLYETHYLENE (MIRALAX) 17 GM PACK PO SCH (09:28)
[2022-02-09] MEDS: ACETAMINOPHEN 500 MG TAB PO SCH ×3 (09:29→22:00)
[2022-02-09] MEDS: ONDANSETRON 4 MG OD TAB PO SCH ×3 (09:30→21:57)
[2022-02-09] MEDS: ENOXAPARIN INJ 40 MG/0.4 ML SYR SQ SCH (20:56)
[2022-02-09] MEDS: MECLIZINE HCL 25 MG TAB PO PRN (21:54)
[2022-02-09] MEDS: FOLIC ACID 1 MG TAB PO SCH (21:56)
[2022-02-09] MEDS: CHOLECALCIFEROL 1,000 UNITS 25 MCG TAB PO SCH (21:57)
[2022-02-09] MEDS: oxyCODONE HCL IR 5 MG TAB (IMMEDIATE RELEASE) PO SCH (21:59)
[2022-02-10] MEDS: HYDROmorphone INJ 0.5 MG/0.5 ML SYR IV PRN ×2 (00:24→04:01)
[2022-02-10] MEDS: CHECK fentaNYL PATCH PLACEMENT SCH ×4 (00:32→22:58)
[2022-02-10] MEDS: ALUMINUM/MAGNESIUM/SIMETH (MAALOX MAX) 30 ML UDC PO SCH ×4 (03:27→21:09)
[2022-02-10] MEDS: diphenhydrAMINE 50 MG/ML VIAL IV PRN ×3 (03:27→19:19)
[2022-02-10] MEDS: SODIUM CHLORIDE 0.45 % 1,000 ML IV SCH ×2 (06:20→17:34)
--- NOTE | 2022-02-10 08:06 | Hospitalist Progress Note ---
Date of Service February 10, 2022 Assessment & Plan (1) Sickle cell crisis: Plan: Patient presents with pain reminiscent of her previous sickle cell crises, as well as an acute uncomplicated UTI. Typically at home she is on fentanyl patch at 12mcg q3d, morphine 15mg PO q8h prn, and hydroxyurea. Sickle cell disorder acute pain episode, megaloblastic anemia -Pain regimen as follows: - APAP scheduled - Fentanyl patch scheduled - Oxycodone 5mg qhs scheduled to prevent needing to play catch-up in the AM - Dilaudid 2mg IV q2h moderate/severe (4+/10) pain - Naloxone available for patient as needed - LUQ US (02/02) performed to evaluate for splenic sequestration in the setting of LUQ pain; results unremarkable - Benadryl 50mg q6h prn itching - Switch IVF from normal saline to half-normal saline to prevent sickling - Zofran prn nausea - Meclizine prn dizziness - Continue folate, B12 supplementation - PT/OT ordered to prevent deconditioning - 02/04: Hgb steadily trending downward; transfused 2u pRBC; Hgb appropriately ann to the mid-9's - Trend daily CBC, CMP Fever, UTI - Suspect fever is secondary to urinary tract infection based on suprapubic tenderness and UA with leukocyte esterase, bacteria, and nitrites - Urine culture: pansensitive E. coli - Continue ceftriaxone q24h for uncomplicated UTI, sensitivities are pansensitive, consider transition from rocephin to cefdinir for 5 days total of treatment - LUQ US showed mild atrophic spleen without any splenic lesions noted - Currently appears well and is hemodynamically stable Transaminitis - CMP today showed mildly elevated levels of AST and ALT at 120 and 98 respectively (02/04: AST improved to 69, ALT improved to 85) - Could be due to sickling causing acute vaso-occlusion in liver which would be transient - Due to frequent hospitalization and exposure to blood products, hepatitis panel ordered and pending Borderline personality disorder - Patient's had previous psychiatric consultations for suicidal ideation and counseling for borderline personality disorder - No home psych regimen - Patient denies current suicidal ideation at this point in time GERD: continue famotidine FEN: regular diet, 1/2 NSS @ 80mL/hr Code status: full code DVT ppx: lovenox Dispo: med/surg (2) Fever: (3) Elevated liver enzymes: (4) Borderline personality disorder: (5) GERD (gastroesophageal reflux disease): (6) Avascular necrosis of bone of hip: Plan: -Stable, not having any hip pain at this time. Admission and Anticipated Discharge Date Admission Date: February 01, 2022 Review of Systems Review of Systems: See HPI Physical Exam Constitutional: WD/WN, vitals as above Eyes: PERRL, conjunctivae normal, anicteric sclerae Respiratory: normal respiratory effort, lungs clear to auscultation Cardiovascular: RRR, no murmur, no edema Psychiatric: A+Ox3, euthymic affect Results & Data Results & Data ([facility]) Vital Signs (Past 12 Hours) Vital Signs Temp Pulse Resp BP Pulse Ox O2 Del Method 02/09/22 22:46 36.5 C 67 16 91/49 L 95 Room Air (1) GERD (gastroesophageal reflux disease) Esophagitis presence: esophagitis presence not specified Qualified Code(s): K21.9 - Gastro-esophageal reflux disease without esophagitis
[2022-02-10 08:15] LABS: Hematocrit (blood only) 26.9 % (34.1-44.9); Hemoglobin 9.8 g/dl (12.0-16.0)
[2022-02-10 08:37] LABS: Anion Gap 4 (3-11); BUN Creatinine Ratio 10.4 (10-20); Blood Urea Nitrogen 5 mg/dl (6-23); Calcium 9.1 mg/dl (8.5-10.1); Carbon Dioxide 31 mmol/L (21-32); Chloride 103 mmol/L (98-107); Creatinine Clr Calc Pharmacy 170.6 ml/min; Est GFR (African American) > 150.0 ml/min; Est GFR (Non-African American) 138.3 ml/min; Glucose 87 mg/dl (70-99(Fasting)); Potassium 4.1 mmol/L (3.5-5.1); Sodium 138 mmol/L (136-145)
[2022-02-10] MEDS: HYDROmorphone INJ 2 MG/ML SYR/VIAL IV PRN ×6 (10:16→22:02)
[2022-02-10] MEDS: FAMOTIDINE 20 MG TAB PO SCH ×2 (10:20→21:10)
[2022-02-10] MEDS: HYDROXYUREA 500 MG CAP PO SCH ×2 (10:20→21:12)
[2022-02-10] MEDS: SENNA 8.6 MG TAB PO SCH (10:21)
[2022-02-10] MEDS: CYANOCOBALAMIN (B-12) 100 MCG TABLET PO SCH (10:21)
[2022-02-10] MEDS: CEFDINIR 300 MG CAP PO SCH ×2 (10:21→21:10)
[2022-02-10] MEDS: POLYETHYLENE (MIRALAX) 17 GM PACK PO SCH (10:22)
--- NOTE | 2022-02-10 10:56 | Billing Data ---
Date of Service February 07, 2022 Coding Level of Care Code 78999 Subseq Hosp Care Lvl 3
--- NOTE | 2022-02-10 10:59 | Billing Data ---
Date of Service February 08, 2022 Coding Level of Care Code 45476 Initial Inpt Care Lvl 2
--- NOTE | 2022-02-10 11:06 | Billing Data ---
Date of Service February 09, 2022 Coding Level of Care Code 17009 Subseq Hosp Care Lvl 2
[2022-02-10] MEDS: ONDANSETRON 4 MG OD TAB PO SCH ×4 (11:51→21:12)
[2022-02-10] MEDS: ACETAMINOPHEN 500 MG TAB PO SCH ×4 (11:51→21:08)
[2022-02-10] MEDS: MECLIZINE HCL 25 MG TAB PO PRN (12:26)
--- NOTE | 2022-02-10 17:15 | Hospitalist Progress Note ---
Date of Service February 10, 2022 Assessment & Plan (1) Sickle cell crisis: Plan: Patient presents with pain reminiscent of her previous sickle cell crises, as well as an acute uncomplicated UTI. Typically at home she is on fentanyl patch at 12mcg q3d, morphine 15mg PO q8h prn, and hydroxyurea. Sickle cell disorder acute pain episode, megaloblastic anemia -Pain regimen as follows: - APAP scheduled - Fentanyl patch scheduled - Oxycodone 5mg qhs scheduled to prevent needing to play catch-up in the AM - Dilaudid 2mg IV q2h moderate/severe (4+/10) pain - Naloxone available for patient as needed - LUQ US (02/02) performed to evaluate for splenic sequestration in the setting of LUQ pain; results unremarkable - Benadryl 50mg q6h prn itching -Allowed patient to rest today, given that she was comfortable while sleeping - Zofran prn nausea - Meclizine prn dizziness - Continue folate, B12 supplementation - PT/OT ordered to prevent deconditioning Fever, UTI with sepsis present on admission -Treated Transaminitis -Has improved Borderline personality disorder - Patient's had previous psychiatric consultations for suicidal ideation and counseling for borderline personality disorder - No home psych regimen -For me, for the last several years, has been appropriate/in a relatively stable state of depression. GERD: continue famotidine FEN: regular diet, 1/ NSS @ 80mL/hr Code status: full code DVT ppx: lovenox Dispo: med/surg, anticipate home on discharge once pain under better control/situation more manageable. Admission and Anticipated Discharge Date Admission Date: February 01, 2022 Subjective Tried to see patient 3 separate times todaymidmorning, early afternoon, early evening. Patient asleep all 3. Nursing notes show a pattern of being asleep, waking up and expressing pain. Because of this, and patient appearing comfortable, allowed patient to sleep. Physical Exam Physical Exam: In general she is asleep every time I see her, resting, appearing fortunately comfortable and in no distress. HEENT normocephalic atraumatic. Breathing unlabored at rest. Skin without rashes, pallor, icterus. Results & Data Results & Data ([facility]) Vital Signs (Past 12 Hours) Vital Signs Temp Pulse Resp BP BP Pulse Ox O2 Del Method 02/10/22 15:23 98.4 F 71 16 103/65 100 Room Air 02/10/22 08:07 98.2 F 73 16 109/68 93 Room Air PG Care Time/CCT Total # of Minutes Spent Total Time Spent with Patient: Total time spent is greater than 50% in coordination of care (as documented) at patient's floor/unit and/or counseling patient: Coding Level of Care Code 35699 Subseq Hosp Care Lvl 2 Diagnoses Sickle cell crisis D57.00
[2022-02-10] MEDS: ENOXAPARIN INJ 40 MG/0.4 ML SYR SQ SCH (19:58)
[2022-02-10] MEDS: fentaNYL 12 MCG/HR TDSY TD SCH (21:07)
[2022-02-10] MEDS: CHOLECALCIFEROL 1,000 UNITS 25 MCG TAB PO SCH (21:11)
[2022-02-10] MEDS: FOLIC ACID 1 MG TAB PO SCH (21:11)
[2022-02-10] MEDS: oxyCODONE HCL IR 5 MG TAB (IMMEDIATE RELEASE) PO SCH (21:12)
[2022-02-11] MEDS: HYDROmorphone INJ 2 MG/ML SYR/VIAL IV PRN ×9 (00:03→23:52)
[2022-02-11] MEDS: diphenhydrAMINE 50 MG/ML VIAL IV PRN ×4 (01:17→23:06)
[2022-02-11] MEDS: ALUMINUM/MAGNESIUM/SIMETH (MAALOX MAX) 30 ML UDC PO SCH ×4 (01:18→21:01)
[2022-02-11] MEDS: SODIUM CHLORIDE 0.45 % 1,000 ML IV SCH ×2 (05:25→17:19)
--- NOTE | 2022-02-11 07:06 | Hospitalist Progress Note ---
Date of Service February 11, 2022 Assessment & Plan (1) Sickle cell crisis: Plan: Patient presents with pain reminiscent of her previous sickle cell crises, as well as an acute uncomplicated UTI. Typically at home she is on fentanyl patch at 12mcg q3d, morphine 15mg PO q8h prn, and hydroxyurea. Sickle cell disorder acute pain episode, megaloblastic anemia -Pain regimen as follows: - APAP scheduled - Fentanyl patch scheduled - Oxycodone 5mg qhs scheduled to prevent needing to play catch-up in the AM - Dilaudid 1.5mg IV q2h moderate/severe (4+/10) pain - Naloxone available for patient as needed - LUQ US (02/02) performed to evaluate for splenic sequestration in the setting of LUQ pain; results unremarkable - Benadryl 50mg q6h prn itching - Zofran prn nausea - Meclizine prn dizziness - Continue folate, B12 supplementation - PT/OT ordered to prevent deconditioning Fever, UTIwith sepsis present on admission -Treated Transaminitis -Has improved Borderline personality disorder - Patient's had previous psychiatric consultations for suicidal ideation and counseling for borderline personality disorder - No home psych regimen -For me, for the last several years, has been appropriate/in a relatively stable state of depression. GERD: continue famotidine FEN: regular diet, 1/2 NSS @ 80mL/hr Code status: full code DVT ppx: lovenox Dispo: med/surg, anticipate home on discharge once pain under better control/situation more manageable. (2) Fever: (3) Elevated liver enzymes: (4) Borderline personality disorder: (5) GERD (gastroesophageal reflux disease): (6) Avascular necrosis of bone of hip: Admission and Anticipated Discharge Date Admission Date: February 01, 2022 Supervising Physician Co-Signing Physician Notes Patient seen and examined with PGY-2 Dr. Carballo. Agree with history, exam findings, assessment and plan of care as outlined. In brief, Emerson is a 21 year old female with history of sickle cell disease and recurrent sickle cell pain crisis admitted with pain similar to prior sickle cell episodes. She is feeling ok. Still having some pain but is thinking she would be ok to decrease the dose of the dilaudid back down to 1.5mg q2h. Continue current pain regimen but decreased dilaudid down to 1.5mg q2h. If her pain increases, we can always increase back to 2mg and also consider additional imaging of the low back and hips. Dispo: pending clinical improvement. Subjective Patient seen at the bedside this morning, she says she still feels pain at her lower back and legs. Discussed with patient what she would feel comfortable with. She stated she would want to wean off the dilaudid and try to get home, and would prefer to go from 2mg to 1.5mg. Review of Systems Review of Systems: As per HPI. Physical Exam Constitutional: WD/WN, vitals as above Eyes: PERRL, conjunctivae normal, anicteric sclerae Respiratory: normal respiratory effort, lungs clear to auscultation Cardiovascular: RRR, no murmur, no edema Psychiatric: A+Ox3, euthymic affect Results & Data Results & Data ([facility]) Vital Signs (Past 12 Hours) Vital Signs Temp Pulse Resp BP Pulse Ox O2 Del Method 02/10/22 20:22 36.9 C 62 16 97/57 L 99 Room Air Resident Activity Tracking Resident Involvement: Resident Care Provided Care Provided: Adult Hospital Medicine (1) GERD (gastroesophageal reflux disease) Esophagitis presence: esophagitis presence not specified Qualified Code(s): K21.9 - Gastro-esophageal reflux disease without esophagitis
[2022-02-11] MEDS: HYDROXYUREA 500 MG CAP PO SCH ×2 (08:38→21:01)
[2022-02-11] MEDS: ONDANSETRON 4 MG OD TAB PO SCH ×3 (08:39→21:00)
[2022-02-11] MEDS: CYANOCOBALAMIN (B-12) 100 MCG TABLET PO SCH (08:40)
[2022-02-11] MEDS: FAMOTIDINE 20 MG TAB PO SCH ×2 (08:40→21:02)
[2022-02-11] MEDS: CEFDINIR 300 MG CAP PO SCH ×2 (08:40→21:01)
[2022-02-11] MEDS: SENNA 8.6 MG TAB PO SCH (08:41)
[2022-02-11] MEDS: POLYETHYLENE (MIRALAX) 17 GM PACK PO SCH (08:48)
[2022-02-11] MEDS: ACETAMINOPHEN 500 MG TAB PO SCH ×3 (08:48→20:58)
[2022-02-11] MEDS: CHECK fentaNYL PATCH PLACEMENT SCH ×3 (08:48→23:52)
[2022-02-11] MEDS: ENOXAPARIN INJ 40 MG/0.4 ML SYR SQ SCH (20:50)
[2022-02-11] MEDS: oxyCODONE HCL IR 5 MG TAB (IMMEDIATE RELEASE) PO SCH (21:00)
[2022-02-11] MEDS: CHOLECALCIFEROL 1,000 UNITS 25 MCG TAB PO SCH (21:01)
[2022-02-11] MEDS: FOLIC ACID 1 MG TAB PO SCH (21:01)
[2022-02-12] MEDS: ALUMINUM/MAGNESIUM/SIMETH (MAALOX MAX) 30 ML UDC PO SCH ×4 (01:27→20:43)
[2022-02-12] MEDS: HYDROmorphone INJ 2 MG/ML SYR/VIAL IV PRN ×9 (01:46→21:37)
[2022-02-12] MEDS: diphenhydrAMINE 50 MG/ML VIAL IV PRN ×3 (06:18→20:45)
[2022-02-12] MEDS: SODIUM CHLORIDE 0.45 % 1,000 ML IV SCH ×2 (06:20→20:53)
--- NOTE | 2022-02-12 07:06 | Hospitalist Progress Note ---
Date of Service February 12, 2022 Assessment & Plan (1) Sickle cell crisis: Plan: Patient presents with pain reminiscent of her previous sickle cell crises, as well as an acute uncomplicated UTI. Typically at home she is on fentanyl patch at 12mcg q3d, morphine 15mg PO q8h prn, and hydroxyurea. Sickle cell disorder acute pain episode, megaloblastic anemia -Pain regimen as follows: - APAP scheduled - Fentanyl patch scheduled - Oxycodone 5mg qhs scheduled to prevent needing to play catch-up in the AM - Dilaudid 1.5mg IV q2h moderate/severe (4+/10) pain - Naloxone available for patient as needed - LUQ US (02/02) performed to evaluate for splenic sequestration in the setting of LUQ pain; results unremarkable - Benadryl 50mg q6h prn itching - Zofran prn nausea - Meclizine prn dizziness - Continue folate, B12 supplementation - PT/OT ordered to prevent deconditioning Fever, UTIwith sepsis present on admission -Treated Transaminitis -Has improved Borderline personality disorder - Patient's had previous psychiatric consultations for suicidal ideation and counseling for borderline personality disorder - No home psych regimen -For me, for the last several years, has been appropriate/in a relatively stable state of depression. GERD: continue famotidine FEN: regular diet, 1/2 NSS @ 80mL/hr Code status: full code DVT ppx: lovenox Dispo: med/surg, anticipate home on discharge once pain under better control/situation more manageable. (2) Fever: (3) Elevated liver enzymes: (4) Borderline personality disorder: (5) GERD (gastroesophageal reflux disease): (6) Avascular necrosis of bone of hip: Admission and Anticipated Discharge Date Admission Date: February 01, 2022 Supervising Physician Co-Signing Physician Notes Patient seen and examined with PGY-2 Dr. Carballo. Agree with history, exam findings, assessment and plan of care as outlined. In brief, Emerson is a 21 year old female with history of sickle cell disease and recurrent sickle cell pain crisis admitted with pain similar to prior sickle cell episodes. Unable to see patient this afternoon as she was sleeping when I attempted to see her. She appeared comfortable, sleep in bed. Continue current pain regimen but decreased dilaudid down to 1.5mg q2h. If her pain increases, we can always increase back to 2mg and also consider additional imaging of the low back and hips. Dispo: pending clinical improvement. Subjective Patient seen at the bedside this morning however asleep when attempting to see her. Review of Systems Review of Systems: As per HPI. Physical Exam Constitutional: WD/WN, vitals as above Eyes: PERRL, conjunctivae normal, anicteric sclerae Respiratory: normal respiratory effort Results & Data Results & Data ([facility]) Vital Signs (Past 12 Hours) Vital Signs Temp Pulse Resp BP Pulse Ox O2 Del Method 02/11/22 20:47 36.6 C 57 L 16 106/55 L 100 Room Air (1) GERD (gastroesophageal reflux disease) Esophagitis presence: esophagitis presence not specified Qualified Code(s): K21.9 - Gastro-esophageal reflux disease without esophagitis
[2022-02-12] MEDS: CHECK fentaNYL PATCH PLACEMENT SCH ×2 (09:03→16:37)
[2022-02-12] MEDS: ONDANSETRON 4 MG OD TAB PO SCH ×3 (09:04→20:45)
[2022-02-12] MEDS: CEFDINIR 300 MG CAP PO SCH ×2 (09:04→20:46)
[2022-02-12] MEDS: SENNA 8.6 MG TAB PO SCH (09:04)
[2022-02-12] MEDS: CYANOCOBALAMIN (B-12) 100 MCG TABLET PO SCH (09:04)
[2022-02-12] MEDS: ACETAMINOPHEN 500 MG TAB PO SCH ×3 (09:04→20:46)
[2022-02-12] MEDS: HYDROXYUREA 500 MG CAP PO SCH ×2 (09:04→20:47)
[2022-02-12] MEDS: POLYETHYLENE (MIRALAX) 17 GM PACK PO SCH (09:04)
[2022-02-12] MEDS: FAMOTIDINE 20 MG TAB PO SCH ×2 (09:04→20:46)
[2022-02-12] MEDS: ENOXAPARIN INJ 40 MG/0.4 ML SYR SQ SCH (20:38)
[2022-02-12] MEDS: CHOLECALCIFEROL 1,000 UNITS 25 MCG TAB PO SCH (20:46)
[2022-02-12] MEDS: FOLIC ACID 1 MG TAB PO SCH (20:47)
[2022-02-12] MEDS: oxyCODONE HCL IR 5 MG TAB (IMMEDIATE RELEASE) PO SCH (20:47)
[2022-02-13] MEDS: CHECK fentaNYL PATCH PLACEMENT SCH ×3 (00:41→15:18)
[2022-02-13] MEDS: HYDROmorphone INJ 2 MG/ML SYR/VIAL IV PRN ×11 (00:41→22:37)
[2022-02-13] MEDS: diphenhydrAMINE 50 MG/ML VIAL IV PRN ×4 (02:51→21:58)
[2022-02-13] MEDS: ALUMINUM/MAGNESIUM/SIMETH (MAALOX MAX) 30 ML UDC PO SCH ×4 (04:01→20:34)
--- NOTE | 2022-02-13 07:09 | Hospitalist Progress Note ---
Date of Service February 13, 2022 Assessment & Plan (1) Sickle cell crisis: Plan: Patient presents with pain reminiscent of her previous sickle cell crises, as well as an acute uncomplicated UTI. Typically at home she is on fentanyl patch at 12mcg q3d, morphine 15mg PO q8h prn, and hydroxyurea. Sickle cell disorder acute pain episode, megaloblastic anemia -Pain regimen as follows: - APAP scheduled - Fentanyl patch scheduled - Oxycodone 5mg qhs scheduled to prevent needing to play catch-up in the AM - Dilaudid 1.5mg IV q2h moderate/severe (4+/10) pain - Naloxone available for patient as needed - LUQ US (02/02) performed to evaluate for splenic sequestration in the setting of LUQ pain; results unremarkable - Benadryl 50mg q6h prn itching - Zofran prn nausea - Meclizine prn dizziness - Continue folate, B12 supplementation - PT/OT ordered to prevent deconditioning - XR Pelvis and L knee ordered. Insomnia: -Will trial Ambien 5mg tonight since patient has had some success with this in the past. Fever, UTIwith sepsis present on admission -Treated Transaminitis -Has improved Borderline personality disorder - Patient's had previous psychiatric consultations for suicidal ideation and counseling for borderline personality disorder - No home psych regimen -For me, for the last several years, has been appropriate/in a relatively stable state of depression. GERD: continue famotidine FEN: regular diet, 1/2 NSS @ 80mL/hr Code status: full code DVT ppx: lovenox Dispo: med/surg, anticipate home on discharge once pain under better control/situation more manageable. (2) Fever: (3) Elevated liver enzymes: (4) Borderline personality disorder: (5) GERD (gastroesophageal reflux disease): (6) Avascular necrosis of bone of hip: Admission and Anticipated Discharge Date Admission Date: February 01, 2022 Supervising Physician Co-Signing Physician Notes Patient seen and examined independently of PGY-2 Dr. Carballo. Agree with history, exam findings, assessment and plan of care as outlined. In brief, James is a 21 year old female with history of sickle cell disease and recurrent sickle cell pain crisis admitted with pain similar to prior sickle cell episodes. Reports that she has not been sleeping well. Increased pain today in the lower back, hips and left knee. Has used trazodone in the past but this gave her nightmares. She thinks she has used Ambien in the past. VS and nursing notes reviewed. Tender over the right SI area. Labs and imaging reviewed. Continue current pain regimen but decreased dilaudid down to 1.5mg q2h. Check radiographs of pelvis and left knee given increase in pain. Trial of ambien tonight for sleep. Dispo: pending clinical improvement. Subjective Patient seen at the bedside today saying her pain is a bit worse than yesterday and still mostly at the lower back and bilateral hips but more so on the left. She states that she usually gets pain more on the left when she has pain attacks. She also did not get much sleep the previous few nights. Review of Systems Review of Systems: As per HPI. Physical Exam Constitutional: WD/WN, vitals as above Eyes: PERRL, conjunctivae normal, anicteric sclerae Respiratory: normal respiratory effort, lungs clear to auscultation Cardiovascular: RRR, no murmur, no edema Psychiatric: A+Ox3, euthymic affect Results & Data Results & Data ([facility]) Vital Signs (Past 12 Hours) Vital Signs Temp Pulse Resp BP Pulse Ox O2 Del Method 02/12/22 20:54 36.9 C 79 16 110/72 97 Room Air Resident Activity Tracking Resident Involvement: Resident Care Provided Care Provided: Adult Hospital Medicine (1) GERD (gastroesophageal reflux disease) Esophagitis presence: esophagitis presence not specified Qualified Code(s): K21.9 - Gastro-esophageal reflux disease without esophagitis
[2022-02-13] MEDS: SODIUM CHLORIDE 0.45 % 1,000 ML IV SCH ×2 (07:44→20:44)
[2022-02-13] MEDS: FAMOTIDINE 20 MG TAB PO SCH ×2 (09:39→20:36)
[2022-02-13] MEDS: CEFDINIR 300 MG CAP PO SCH ×2 (09:39→20:35)
[2022-02-13] MEDS: HYDROXYUREA 500 MG CAP PO SCH ×2 (09:39→20:35)
[2022-02-13] MEDS: CYANOCOBALAMIN (B-12) 100 MCG TABLET PO SCH (09:40)
[2022-02-13] MEDS: SENNA 8.6 MG TAB PO SCH (09:40)
[2022-02-13] MEDS: POLYETHYLENE (MIRALAX) 17 GM PACK PO SCH (09:40)
[2022-02-13] MEDS: ONDANSETRON 4 MG OD TAB PO SCH ×3 (09:42→20:37)
[2022-02-13] MEDS: ACETAMINOPHEN 500 MG TAB PO SCH ×3 (09:42→20:36)
[2022-02-13] MEDS ORDERED: ZOLPIDEM TARTRATE 5 MG TAB PO PRN (14:12)
--- NOTE | 2022-02-13 15:18 | XRay Report ---
LEFT KNEE 2 VIEWS CLINICAL HISTORY: Left knee pain. FINDINGS: AP and crosstable lateral views of the left knee are compared to study dated 10/29/2021. The skeletal structures are well mineralized. No fracture is seen. The joint spaces are maintained. Ther e is no joint effusion. Mild prepatellar soft tissue swelling is observed. IMPRESSION: No acute bony abnormality is identified. Electronically signed by: Richard Mcmahon M.D. 02/13/2022 3:16 PM
[2022-02-13] MEDS: ENOXAPARIN INJ 40 MG/0.4 ML SYR SQ SCH (15:19)
--- NOTE | 2022-02-13 15:26 | XRay Report ---
XR pelvis 1-2V routine HISTORY: 21 years-old Female hip pain, hx of AVN chronic left hip pain COMPARISON: CT abdomen and pelvis 12/20/2021 TECHNIQUE: AP view of the pelvis FINDINGS: H shaped lumbar vertebral bodies. Right proximal femoral bone infarcts/avascular necrosis. Left coxa magna with severe avascular necrosis and partial articular collapse/subchondral fracturing of the fem oral head. Mild to moderate joint space narrowing of the left femoral acetabular joint. No acute frac ture or dislocation identified. IMPRESSION: 1. No acute fracture or dislocation. 2. Avascular necrosis of the left greater than right femoral heads with right proximal femoral bone i nfarct. 3. Partial articular collapse/subchondral fracturinga of the left femoral head redemonstrated. 4. These findings in conjunction with the H shaped lumbar vertebral bodies are compatible with sickle cell disease. ACT 112: Negative or not required by law. The above report was generated using voice recognition software. It may contain grammatical, syntax o r spelling errors. Electronically signed by: Tre Jennings M.D. 02/13/2022 3:24 PM
[2022-02-13] MEDS: fentaNYL 12 MCG/HR TDSY TD SCH (18:13)
[2022-02-13] MEDS: CHOLECALCIFEROL 1,000 UNITS 25 MCG TAB PO SCH (20:35)
[2022-02-13] MEDS: FOLIC ACID 1 MG TAB PO SCH (20:36)
[2022-02-13] MEDS: oxyCODONE HCL IR 5 MG TAB (IMMEDIATE RELEASE) PO SCH (20:37)
[2022-02-14] MEDS: CHECK fentaNYL PATCH PLACEMENT SCH ×3 (00:36→15:45)
[2022-02-14] MEDS: HYDROmorphone INJ 2 MG/ML SYR/VIAL IV PRN ×8 (00:36→20:40)
[2022-02-14] MEDS: ALUMINUM/MAGNESIUM/SIMETH (MAALOX MAX) 30 ML UDC PO SCH ×4 (02:00→20:44)
[2022-02-14] MEDS: diphenhydrAMINE 50 MG/ML VIAL IV PRN ×3 (05:09→17:11)
[2022-02-14] MEDS: SODIUM CHLORIDE 0.45 % 1,000 ML IV SCH ×2 (09:31→18:39)
[2022-02-14] MEDS: CYANOCOBALAMIN (B-12) 100 MCG TABLET PO SCH (09:34)
[2022-02-14] MEDS: CEFDINIR 300 MG CAP PO SCH (09:34)
[2022-02-14] MEDS: FAMOTIDINE 20 MG TAB PO SCH ×2 (09:34→20:40)
[2022-02-14] MEDS: POLYETHYLENE (MIRALAX) 17 GM PACK PO SCH (09:34)
[2022-02-14] MEDS: HYDROXYUREA 500 MG CAP PO SCH ×2 (09:34→20:39)
[2022-02-14] MEDS: SENNA 8.6 MG TAB PO SCH (09:34)
[2022-02-14] MEDS: ONDANSETRON 4 MG OD TAB PO SCH ×3 (09:37→20:45)
[2022-02-14] MEDS: ACETAMINOPHEN 500 MG TAB PO SCH ×3 (09:37→20:45)
[2022-02-14] MEDS: MECLIZINE HCL 25 MG TAB PO PRN (11:39)
--- NOTE | 2022-02-14 15:29 | Hospitalist Progress Note ---
Date of Service February 14, 2022 Assessment & Plan (1) Sickle cell crisis: Plan: Patient presents with pain reminiscent of her previous sickle cell crises, as well as an acute uncomplicated UTI. Typically at home she is on fentanyl patch at 12mcg q3d, morphine 15mg PO q8h prn, and hydroxyurea. Sickle cell disorder acute pain episode, megaloblastic anemia -Pain regimen as follows: - APAP scheduled - Fentanyl patch scheduled - Oxycodone 5mg qhs scheduled to prevent needing to play catch-up in the AM - Dilaudid 1.5mg IV q2h moderate/severe (4+/10) pain - Naloxone available for patient as needed - LUQ US (02/02) performed to evaluate for splenic sequestration in the setting of LUQ pain; results unremarkable - Benadryl 50mg q6h prn itching - Zofran prn nausea - Meclizine prn dizziness - Continue folate, B12 supplementation - PT/OT ordered to prevent deconditioning - XR Pelvis and L knee without changes from previous XR. No acute abnormalities with bones identified. Insomnia: -Will trial Ambien 5mg tonight since patient has had some success with this in the past. Fever, UTIwith sepsis present on admission -Treated Transaminitis -Has improved Borderline personality disorder - Patient's had previous psychiatric consultations for suicidal ideation and counseling for borderline personality disorder - No home psych regimen -For me, for the last several years, has been appropriate/in a relatively stable state of depression. GERD: continue famotidine FEN: regular diet, 1/2 NSS @ 80mL/hr Code status: full code DVT ppx: lovenox Dispo: med/surg, anticipate home on discharge once pain under better control/situation more manageable. (2) Fever: (3) Elevated liver enzymes: (4) Borderline personality disorder: (5) GERD (gastroesophageal reflux disease): (6) Avascular necrosis of bone of hip: Admission and Anticipated Discharge Date Admission Date: February 01, 2022 Supervising Physician Co-Signing Physician Notes Attempted to see patient a few times today, but she was sleeping. In brief, James is a 21 year old female with history of sickle cell disease and recurrent sickle cell pain crisis admitted with pain similar to prior sickle cell episodes. VS and nursing notes reviewed. Sleeping comfortably in bed. Labs and imaging reviewed. Continue current pain regimen and wean down as able. Radiographs of pelvis and left knee are relatively unchanged form previous. Known AVN of the bilateral femoral heads. Ok to continue ambien at night for sleep. Dispo: pending clinical improvement. Subjective Patient seen at the bedside today, slept well last night with the help of Ambien. Her pain however is the same and mostly located at the lower back, upper legs, and left knee. Dizziness is under control with meclizine PRN. Patient unsure if she will go up on the dilaudid from 1.5mg to 2.0mg. Told patient will get back to her later in the afternoon to check for decision however patient sleeping when went up to check again. Review of Systems Review of Systems: As per HPI. Physical Exam Constitutional: WD/WN, vitals as above Eyes: PERRL, conjunctivae normal, anicteric sclerae Respiratory: normal respiratory effort, lungs clear to auscultation Cardiovascular: RRR, no murmur, no edema Psychiatric: A+Ox3, euthymic affect Results & Data Results & Data ([facility]) Vital Signs (Past 12 Hours) Vital Signs Temp Pulse Resp BP Pulse Ox O2 Del Method 02/14/22 07:41 37 C 66 16 127/77 100 Room Air Resident Activity Tracking Resident Involvement: Resident Care Provided Care Provided: Adult Hospital Medicine (1) GERD (gastroesophageal reflux disease) Esophagitis presence: esophagitis presence not specified Qualified Code(s): K21.9 - Gastro-esophageal reflux disease without esophagitis
[2022-02-14] MEDS: ENOXAPARIN INJ 40 MG/0.4 ML SYR SQ SCH (15:45)
[2022-02-14] MEDS: FOLIC ACID 1 MG TAB PO SCH (20:39)
[2022-02-14] MEDS: CHOLECALCIFEROL 1,000 UNITS 25 MCG TAB PO SCH (20:39)
[2022-02-14] MEDS: ZOLPIDEM TARTRATE 5 MG TAB PO PRN (20:41)
[2022-02-14] MEDS: oxyCODONE HCL IR 5 MG TAB (IMMEDIATE RELEASE) PO SCH (20:45)
[2022-02-15] MEDS: diphenhydrAMINE 50 MG/ML VIAL IV PRN ×3 (00:08→18:34)
[2022-02-15] MEDS: HYDROmorphone INJ 2 MG/ML SYR/VIAL IV PRN ×7 (00:40→21:46)
[2022-02-15] MEDS: CHECK fentaNYL PATCH PLACEMENT SCH ×3 (00:41→16:34)
[2022-02-15] MEDS: ALUMINUM/MAGNESIUM/SIMETH (MAALOX MAX) 30 ML UDC PO SCH ×4 (02:03→20:47)
[2022-02-15] MEDS: SODIUM CHLORIDE 0.45 % 1,000 ML IV SCH ×2 (06:14→18:34)
--- NOTE | 2022-02-15 06:47 | Hospitalist Progress Note ---
Date of Service February 15, 2022 Assessment & Plan (1) Sickle cell crisis: Plan: Patient presents with pain reminiscent of her previous sickle cell crises, as well as an acute uncomplicated UTI. Typically at home she is on fentanyl patch at 12mcg q3d, morphine 15mg PO q8h prn, and hydroxyurea. Sickle cell disorder acute pain episode, megaloblastic anemia -Pain regimen as follows: - APAP scheduled - Fentanyl patch scheduled - Oxycodone 5mg qhs scheduled to prevent needing to play catch-up in the AM - Dilaudid 1.5mg IV q2h moderate/severe (4+/10) pain - Naloxone available for patient as needed - LUQ US (02/02) performed to evaluate for splenic sequestration in the setting of LUQ pain; results unremarkable - Benadryl 50mg q6h prn itching - Zofran prn nausea - Meclizine scheduled for dizziness - Continue folate, B12 supplementation - PT/OT ordered to prevent deconditioning - XR Pelvis and L knee without changes from previous XR. No acute abnormalities with bones identified. Insomnia: -Will trial Ambien 5mg tonight since patient has had some success with this in the past. Fever, UTIwith sepsis present on admission -Treated Transaminitis -Has improved Borderline personality disorder - Patient's had previous psychiatric consultations for suicidal ideation and counseling for borderline personality disorder - No home psych regimen -For me, for the last several years, has been appropriate/in a relatively stable state of depression. GERD: continue famotidine FEN: regular diet, 1/2 NSS @ 80mL/hr Code status: full code DVT ppx: lovenox Dispo: med/surg, anticipate home on discharge once pain under better control/situation more manageable. Patient will need rescheduling of appointment for breast (2) Fever: (3) Elevated liver enzymes: (4) Borderline personality disorder: (5) GERD (gastroesophageal reflux disease): (6) Avascular necrosis of bone of hip: Admission and Anticipated Discharge Date Admission Date: February 01, 2022 Supervising Physician Co-Signing Physician Notes Attending attestation Pt seen and examined in concert with Dr. Carballo. In agreement with the documented findings as noted in the resident documentation with any exceptions or additions as noted here. Reports pain controlled on present regimen w/ [employer], advocating that she will try to 'stretch out' her uses today. VS, nursing notes reviewed. on Exmaination, S1/S2 nl RRR no MCG. CTAB. Abd NT/ND BS+ve Labs and imaging reviewed. Sickle cell with pain crisis, recurrent, severe - wean down dilaudid regimen, monitor closely. Can continue ambien qHS PRN AVN of the femoral head, bilateral - controlled pain. Else see resident documentation as noted. Subjective Patient seen at the bedside this morning saying her pain is still about the same however she was able to get sleep last night. She feels she does not want to go up on the dilaudid dose and would like to see how she feels with her pain now that she has better sleep. She also requests that her PRN meclizine be made scheduled. Review of Systems Review of Systems: As per HPI. Physical Exam Constitutional: WD/WN, vitals as above Eyes: PERRL, conjunctivae normal, anicteric sclerae Respiratory: normal respiratory effort, lungs clear to auscultation normal respiratory effort Cardiovascular: RRR, no murmur, no edema Psychiatric: A+Ox3, euthymic affect Results & Data Results & Data ([facility]) Vital Signs (Past 12 Hours) Vital Signs Temp Pulse Resp BP Pulse Ox O2 Del Method 02/14/22 20:35 36.6 C 76 16 92/52 L 100 Room Air Resident Activity Tracking Resident Involvement: Resident Care Provided Care Provided: Adult Hospital Medicine (1) GERD (gastroesophageal reflux disease) Esophagitis presence: esophagitis presence not specified Qualified Code(s): K21.9 - Gastro-esophageal reflux disease without esophagitis
[2022-02-15] MEDS: HYDROXYUREA 500 MG CAP PO SCH ×2 (11:40→21:30)
[2022-02-15] MEDS: ONDANSETRON 4 MG OD TAB PO SCH ×3 (11:44→21:30)
[2022-02-15] MEDS: CYANOCOBALAMIN (B-12) 100 MCG TABLET PO SCH (11:44)
[2022-02-15] MEDS: ACETAMINOPHEN 500 MG TAB PO SCH ×3 (11:44→21:30)
[2022-02-15] MEDS: SENNA 8.6 MG TAB PO SCH (11:45)
[2022-02-15] MEDS: FAMOTIDINE 20 MG TAB PO SCH ×2 (11:46→21:30)
[2022-02-15] MEDS: POLYETHYLENE (MIRALAX) 17 GM PACK PO SCH (11:47)
[2022-02-15] MEDS: MECLIZINE HCL 25 MG TAB PO SCH ×2 (14:52→21:30)
[2022-02-15] MEDS: ENOXAPARIN INJ 40 MG/0.4 ML SYR SQ SCH (18:34)
[2022-02-15] MEDS: FOLIC ACID 1 MG TAB PO SCH (21:30)
[2022-02-15] MEDS: oxyCODONE HCL IR 5 MG TAB (IMMEDIATE RELEASE) PO SCH (21:30)
[2022-02-15] MEDS: CHOLECALCIFEROL 1,000 UNITS 25 MCG TAB PO SCH (21:30)
[2022-02-16] MEDS: CHECK fentaNYL PATCH PLACEMENT SCH ×4 (00:03→23:08)
[2022-02-16] MEDS: HYDROmorphone INJ 2 MG/ML SYR/VIAL IV PRN ×8 (02:40→22:58)
[2022-02-16] MEDS: ALUMINUM/MAGNESIUM/SIMETH (MAALOX MAX) 30 ML UDC PO SCH ×4 (02:41→20:53)
[2022-02-16] MEDS: diphenhydrAMINE 50 MG/ML VIAL IV PRN ×3 (04:33→18:44)
[2022-02-16] MEDS: SODIUM CHLORIDE 0.45 % 1,000 ML IV SCH ×2 (06:45→19:15)
[2022-02-16] MEDS: ACETAMINOPHEN 500 MG TAB PO SCH ×3 (09:24→20:54)
[2022-02-16] MEDS: ONDANSETRON 4 MG OD TAB PO SCH ×3 (09:25→21:03)
[2022-02-16] MEDS: MECLIZINE HCL 25 MG TAB PO SCH ×3 (09:25→20:52)
[2022-02-16] MEDS: SENNA 8.6 MG TAB PO SCH (09:26)
[2022-02-16] MEDS: CYANOCOBALAMIN (B-12) 100 MCG TABLET PO SCH (09:26)
[2022-02-16] MEDS: FAMOTIDINE 20 MG TAB PO SCH ×2 (09:27→20:52)
[2022-02-16] MEDS: HYDROXYUREA 500 MG CAP PO SCH ×2 (09:27→20:49)
[2022-02-16] MEDS: POLYETHYLENE (MIRALAX) 17 GM PACK PO SCH (09:49)
[2022-02-16] MEDS ORDERED: oxyCODONE/ACETAMINOPHEN 10-325 TAB PO PRN (12:24)
[2022-02-16] MEDS: CeleBREX 200 MG CAP PO SCH (14:43)
--- NOTE | 2022-02-16 17:27 | Hospitalist Progress Note ---
Date of Service February 16, 2022 Assessment & Plan (1) Sickle cell crisis: Plan: Patient presents with pain reminiscent of her previous sickle cell crises, as well as an acute uncomplicated UTI. Typically at home she is on fentanyl patch at 12mcg q3d, morphine 15mg PO q8h prn, and hydroxyurea. Sickle cell disorder acute pain episode, megaloblastic anemia -Pain regimen as follows: - APAP scheduled - Fentanyl patch scheduled - Change oxycodone to 10 mg every 4 hour prn in an attempt to transition her to outpatient regimen (pain 4-7 out of 10) - Dilaudid 1.5mg IV q2h moderate/severe (8-9/10) pain - Naloxone available for patient as needed -Added Celebrex the pain regimen today - LUQ US (02/02) performed to evaluate for splenic sequestration in the setting of LUQ pain; results unremarkable - Benadryl 50mg q6h prn itching - Zofran prn nausea - Meclizine scheduled for dizziness - Continue folate, B12 supplementation - PT/OT ordered to prevent deconditioning - XR Pelvis and L knee without changes from previous XR. No acute abnormalities with bones identified. Insomnia: -Will trial Ambien 5mg tonight since patient has had some success with this in the past. Fever, UTIwith sepsis present on admission -Treated Transaminitis -Has improved Borderline personality disorder - Patient's had previous psychiatric consultations for suicidal ideation and counseling for borderline personality disorder - No home psych regimen -For me has been appropriate/in a relatively stable state of depression. GERD: continue famotidine FEN: regular diet, 1/2 NSS @ 80mL/hr Code status: full code DVT ppx: lovenox Dispo: med/surg, anticipate home on discharge once pain under better control/situation more manageable. Patient will need rescheduling of appointment for breast (2) Fever: (3) Elevated liver enzymes: (4) Borderline personality disorder: (5) GERD (gastroesophageal reflux disease): (6) Avascular necrosis of bone of hip: Admission and Anticipated Discharge Date Admission Date: February 01, 2022 Supervising Physician Co-Signing Physician Notes Attending attestation Pt seen and examined in concert with Dr. Alas. In agreement with the documented findings as noted in the resident documentation with any exceptions or additions as noted here. Pain is moderately controlled and near her baseline 5/10 when she is using the PRN at a ~5 hour interval. Interested in going home, expresses tearfully. VS, nursing notes reviewed. on Exmaination, S1/S2 nl RRR no MCG. CTAB. Abd NT/ND BS+ve Sickle cell with pain crisis, recurrent, severe - would trial addition of NSAID, PO opioid regimen and 12.5mcg fentanyl patch - consider discharge if tolerating at this dose. AVN of the femoral head, bilateral - controlled pain. Else see resident documentation as noted. Subjective Patient seen at bedside this morning. No acute events reported overnight. In the earlier parts of the day, patient was wanting to get out of the hospital even with her pain overall uncontrolled, however, after changing some medications around in an attempt to make them feasible in the outpatient setting, patient had a panic attack later in the afternoon and was having worsening pain and ultimately decided that she needed to stay in the hospital overnight. Otherwise no other new symptoms at this time. Review of Systems Review of Systems: All systems reviewed & are unremarkable except as noted in HPI & below Physical Exam Constitutional: WD/WN, vitals as above Eyes: + anicteric sclerae Neck: trachea midline, no thyromegaly Respiratory: normal respiratory effort, lungs clear to auscultation Cardiovascular: RRR, no murmur, no edema Extremities: no edema Gastrointestinal (Abdomen): Inspection/Auscultation: normal bowel sounds Percussion/Palpation: + abdomen tender (suprapubic) and abdomen soft; no splenomegaly Musculoskeletal: Head/Neck/Chest: normocephalic and head atraumatic Skin: no rashes, warm and dry Neurologic: moves all extremities Psychiatric: Orientation: alert and oriented x 3 Results & Data Results & Data ([place]) Vital Signs (Past 12 Hours) Vital Signs Temp Pulse Resp BP Pulse Ox O2 Del Method 02/15/22 19:51 36.6 C 82 16 108/70 100 Room Air (1) GERD (gastroesophageal reflux disease) Esophagitis presence: esophagitis presence not specified Qualified Code(s): K21.9 - Gastro-esophageal reflux disease without esophagitis
[2022-02-16] MEDS: ENOXAPARIN INJ 40 MG/0.4 ML SYR SQ SCH (18:29)
[2022-02-16] MEDS: FOLIC ACID 1 MG TAB PO SCH (20:52)
[2022-02-16] MEDS: CHOLECALCIFEROL 1,000 UNITS 25 MCG TAB PO SCH (20:52)
[2022-02-16] MEDS: fentaNYL 12 MCG/HR TDSY TD SCH (22:58)
[2022-02-17] MEDS: diphenhydrAMINE 50 MG/ML VIAL IV PRN ×3 (00:46→21:28)
[2022-02-17] MEDS: ALUMINUM/MAGNESIUM/SIMETH (MAALOX MAX) 30 ML UDC PO SCH ×4 (02:29→21:30)
[2022-02-17] MEDS: HYDROmorphone INJ 2 MG/ML SYR/VIAL IV PRN ×7 (05:49→20:04)
[2022-02-17] MEDS: SODIUM CHLORIDE 0.45 % 1,000 ML IV SCH ×3 (06:28→20:04)
[2022-02-17] MEDS: CHECK fentaNYL PATCH PLACEMENT SCH ×3 (08:12→23:26)
[2022-02-17] MEDS: POLYETHYLENE (MIRALAX) 17 GM PACK PO SCH (09:31)
[2022-02-17] MEDS: CeleBREX 200 MG CAP PO SCH (09:32)
[2022-02-17] MEDS: SENNA 8.6 MG TAB PO SCH (09:32)
[2022-02-17] MEDS: FAMOTIDINE 20 MG TAB PO SCH ×2 (09:32→21:28)
[2022-02-17] MEDS: HYDROXYUREA 500 MG CAP PO SCH ×2 (09:32→21:29)
[2022-02-17] MEDS: CYANOCOBALAMIN (B-12) 100 MCG TABLET PO SCH (09:33)
[2022-02-17] MEDS: MECLIZINE HCL 25 MG TAB PO SCH ×3 (09:33→21:29)
[2022-02-17] MEDS: ACETAMINOPHEN 500 MG TAB PO SCH ×3 (09:38→21:28)
[2022-02-17] MEDS: ONDANSETRON 4 MG OD TAB PO SCH ×3 (09:44→21:28)
[2022-02-17 14:48] LABS: Appearance Urine Clear (Clear); Bacteria Urine Automated 4+ (Negative); Bilirubin Urine Negative (Negative); Blood Urine Negative (Negative); Color Urine Yellow; Glucose Urine UA Negative (Negative); Ketones Urine Negative (Negative); Leukocyte Esterase Urine 2+ (Negative); Nitrite Urine Positive (Negative); Protein Urine Negative (Negative); RBC Urine Automated 0-4 /hpf (0-4); Specific Gravity Urine 1.007 (1.000-1.030); Urobilinogen Urine Negative (Negative)
--- NOTE | 2022-02-17 17:09 | Hospitalist Progress Note ---
Date of Service February 17, 2022 Assessment & Plan (1) Sickle cell crisis: Plan: Patient presents with pain reminiscent of her previous sickle cell crises, as well as an acute uncomplicated UTI. Typically at home she is on fentanyl patch at 12mcg q3d, morphine 15mg PO q8h prn, and hydroxyurea. Sickle cell disorder acute pain episode, megaloblastic anemia -Pain regimen as follows: - APAP scheduled - Fentanyl patch scheduled - Change oxycodone to 10 mg every 4 hour prn in an attempt to transition her to outpatient regimen (pain 4-7 out of 10) - Dilaudid 1.5mg IV q2h moderate/severe (8-9/10) pain - Naloxone available for patient as needed -Added Celebrex the pain regimen on 02/15, attempting to transition to home modality - LUQ US (02/02) performed to evaluate for splenic sequestration in the setting of LUQ pain; results unremarkable - Benadryl 50mg q6h prn itching - Zofran prn nausea - Meclizine scheduled for dizziness - Continue folate, B12 supplementation - PT/OT ordered to prevent deconditioning - XR Pelvis and L knee without changes from previous XR. No acute abnormalities with bones identified. Insomnia: -Continue ambien UTI, recurrent -Patient unfortunately had abdominal tenderness, cloudy and smelly urine. -UA returned positive with pyuria and bacteria with 2+ leukocyte esterase -Started patient on Macrobid for 5 days -Culture pending -Afebrile at this time. Transaminitis -Has improved Borderline personality disorder - Patient's had previous psychiatric consultations for suicidal ideation and counseling for borderline personality disorder - No home psych regimen -For me has been appropriate/in a relatively stable state of depression. -Pt would like help with her anxiety, but would not like to talk to therapist or being on any of the medications she was on for depression which includes multiple SSRIs. GERD: continue famotidine FEN: regular diet, 1/2 NSS @ 80mL/hr Code status: full code DVT ppx: lovenox Dispo: med/surg, anticipate home on discharge once pain under better control/situation more manageable. Patient will need rescheduling of appointment for breast (2) Fever: (3) Elevated liver enzymes: (4) Borderline personality disorder: (5) GERD (gastroesophageal reflux disease): (6) Avascular necrosis of bone of hip: Admission and Anticipated Discharge Date Admission Date: February 01, 2022 Supervising Physician Co-Signing Physician Notes Attending attestation Pt seen and examined in concert with Dr. Alas. In agreement with the documented findings as noted in the resident documentation with any exceptions or additions as noted here. Pain is moderately controlled with improvement on the celecoxib. Interested in going home, having some passive suicidal ideation as noted above which is her baseline, low risk and declines further intervention at this time. VS, nursing notes reviewed. on Exmaination, S1/S2 nl RRR no MCG. CTAB. Abd NT/ND BS+ve Sickle cell with pain crisis, recurrent, severe - continue celecoxib, PO opioid regimen and 12.5mcg fentanyl patch Suicidal ideation - low risk on CSRSS - monitor, consider intervention if patient wiling and concerns continue AVN of the femoral head, bilateral - controlled pain. Else see resident documentation as noted. Subjective Patient seen presents morning. No acute vents reported overnight. Unfortunately, nursing had found a note on her desk consistent with suicidal thoughts. When this was brought up with the patient, she does confirm suicidal thoughts, however, she utilizes writing things down to help cope with these thoughts. No active plan. No thoughts of self-harm currently or thoughts of harming others. [place] risk score putting her at low risk. Otherwise would like to discuss anxiety and modalities of treatment. No other complaints this time. Review of Systems 2 Review of Systems: All systems reviewed & are unremarkable except as noted in HPI & below Physical Exam Constitutional: WD/WN, vitals as above Eyes: + anicteric sclerae Neck: trachea midline, no thyromegaly Respiratory: normal respiratory effort, lungs clear to auscultation Cardiovascular: RRR, no murmur, no edema Extremities: no edema Gastrointestinal (Abdomen): Inspection/Auscultation: normal bowel sounds Percussion/Palpation: + abdomen tender (suprapubic) and abdomen soft; no splenomegaly Musculoskeletal: Head/Neck/Chest: normocephalic and head atraumatic Skin: no rashes, warm and dry Neurologic: moves all extremities Psychiatric: Orientation: alert and oriented x 3 Results & Data Results & Data ([facility]) Vital Signs (Past 12 Hours) Vital Signs Temp Pulse Resp BP Pulse Ox O2 Del Method 02/17/22 15:01 36.6 C 84 18 105/71 97 Room Air 02/17/22 07:23 36.6 C 79 16 92/54 L 100 Room Air (1) GERD (gastroesophageal reflux disease) Esophagitis presence: esophagitis presence not specified Qualified Code(s): K21.9 - Gastro-esophageal reflux disease without esophagitis
[2022-02-17] MEDS: FOLIC ACID 1 MG TAB PO SCH (21:28)
[2022-02-17] MEDS: ENOXAPARIN INJ 40 MG/0.4 ML SYR SQ SCH ×2 (21:28→21:35)
[2022-02-17] MEDS: CHOLECALCIFEROL 1,000 UNITS 25 MCG TAB PO SCH (21:29)
[2022-02-18] MEDS: HYDROmorphone INJ 2 MG/ML SYR/VIAL IV PRN ×7 (00:29→22:01)
[2022-02-18] MEDS: ALUMINUM/MAGNESIUM/SIMETH (MAALOX MAX) 30 ML UDC PO SCH ×4 (01:57→22:01)
[2022-02-18] MEDS: SODIUM CHLORIDE 0.45 % 1,000 ML IV SCH ×2 (07:34→20:21)
--- NOTE | 2022-02-18 07:47 | Hospitalist Progress Note ---
Date of Service February 18, 2022 Assessment & Plan (1) Sickle cell crisis: Plan: Patient presents with pain reminiscent of her previous sickle cell crises, as well as an acute uncomplicated UTI. Typically at home she is on fentanyl patch at 12mcg q3d, morphine 15mg PO q8h prn, and hydroxyurea. Sickle cell disorder acute pain episode, megaloblastic anemia -Pain regimen as follows: - APAP scheduled - Fentanyl patch scheduled - Change oxycodone to morphine 15mg PO q4h PRN - Dilaudid 1.5mg IV q2h moderate/severe (8-9/10) pain - Naloxone available for patient as needed -Added Celebrex the pain regimen on 02/15, attempting to transition to home modality - LUQ US (02/02) performed to evaluate for splenic sequestration in the setting of LUQ pain; results unremarkable - Benadryl 50mg q6h prn itching - Zofran prn nausea - Meclizine scheduled for dizziness - Continue folate, B12 supplementation - PT/OT ordered to prevent deconditioning - XR Pelvis and L knee without changes from previous XR. No acute abnormalities with bones identified. Insomnia: -Continue ambien -plan to d/c once pain under control UTI, recurrent -Patient unfortunately had abdominal tenderness, cloudy and smelly urine. -UA returned positive with pyuria and bacteria with 2+ leukocyte esterase -Started 02/18 patient on Macrobid for 5 days -Culture gram negative bacilli -Afebrile at this time. Transaminitis -Has improved Borderline personality disorder - Patient's had previous psychiatric consultations for suicidal ideation and counseling for borderline personality disorder - No home psych regimen -For me has been appropriate/in a relatively stable state of depression. -Pt would like help with her anxiety, but would not like to talk to therapist or being on any of the medications she was on for depression which includes multiple SSRIs. GERD: continue famotidine FEN: regular diet, 1/ NSS @ 80mL/hr Code status: full code DVT ppx: lovenox Dispo: med/surg, anticipate home on discharge once pain under better control/situation more manageable. Patient will need rescheduling of appointment for breast (2) Fever: (3) Elevated liver enzymes: (4) Borderline personality disorder: (5) GERD (gastroesophageal reflux disease): (6) Avascular necrosis of bone of hip: Admission and Anticipated Discharge Date Admission Date: February 01, 2022 Supervising Physician Co-Signing Physician Notes Attending attestation Dysuria about the same. Pain has been worse since her current UTI. Prior to this admission she has not had recurrent UTIs. Vitals noted, in general she is awake and alert pleasant fatigued no distress. HEENT normocephalic atraumatic mucous membranes moist. Breathing unlabored no accessory muscle use good effort. Skin shows no rashes no pallor or icterus. Neuro without focal deficits Sickle cell with pain crisis, recurrent, severe -UTI/inflammation probably has kicked up pain worsecontinue aggressive pain management. Recurrent urinary tract infectionno clear risks or anatomic appearing reasons for recurrence at this point in timeretreat, if refractory/recurrent yet again, then would consult urology Suicidal ideation - low risk on CSRSS - monitor, consider intervention if patient wiling and concerns continue AVN of the femoral head, bilateral -we will work on getting her scheduled with orthopedics Else see resident documentation as noted. Subjective Patient seen at bedside, calm comfortable cooperative. States pain has flared up compared to 2 days ago, believed to be related to the reoccurrence of increased cloudy urine and increased urine odor of UTI. Patient states morphine has worked better for her compared to oxycodone. Denies any SOB at this time. Patient looks forward to leaving the hospital once pain under control. Feels her insomnia is partially due to pain, does not feel she will need ambien once pain is managed. Review of Systems Review of Systems: All systems reviewed & are unremarkable except as noted in HPI & below Physical Exam Constitutional: WD/WN, vitals as above cooperative and comfortable Eyes: PERRL, conjunctivae normal, anicteric sclerae ENMT: external ear and nose normal, oropharynx normal Neck: trachea midline, no thyromegaly Respiratory: normal respiratory effort, lungs clear to auscultation Cardiovascular: Rate/Rhythm: regular rate and regular rhythm Chest (Breasts): Chest: normal inspection of chest Gastrointestinal (Abdomen): Inspection/Auscultation: abdomen normal to inspection; abdomen not distended Percussion/Palpation: + abdomen tender and abdomen soft Skin: no rashes, warm and dry Results & Data Results & Data ([facility]) Vital Signs (Past 12 Hours) Vital Signs Temp Pulse Resp BP Pulse Ox O2 Del Method 02/17/22 21:44 36.6 C 84 16 110/66 100 Room Air Resident Activity Tracking Resident Involvement: Resident Care Provided Care Provided: Adult Hospital Medicine (1) GERD (gastroesophageal reflux disease) Esophagitis presence: esophagitis presence not specified Qualified Code(s): K21.9 - Gastro-esophageal reflux disease without esophagitis
[2022-02-18] MEDS ORDERED: oxyCODONE HCL IR 5 MG TAB (IMMEDIATE RELEASE) PO PRN (07:54)
[2022-02-18] MEDS: CHECK fentaNYL PATCH PLACEMENT SCH ×3 (08:10→23:54)
[2022-02-18 08:46] LABS: Hematocrit (blood only) 25.4 % (34.1-44.9); Hemoglobin 9.5 g/dl (12.0-16.0); Mean Corpuscular Hemoglobin 39.1 pg (25.0-34.0); Mean Corpuscular Hgb Conc 37.4 g/dL (32.0-36.0); Mean Corpuscular Volume 104.5 fL (80.0-100.0); Mean Platelet Volume 9.5 fL (9.4-12.3); Nucleated RBC # (auto) 0.05 K/uL (0-0); Nucleated RBC % (auto) 1.2 %; Platelet Count 471 K/uL (130-400); RDW Coefficient of Variation 18.9 % (11.5-14.5); RDW Standard Deviation 71.8 fL (36.4-46.3); Red Blood Count 2.43 M/uL (3.93-5.22); White Blood Count 4.08 K/ul (4.8-10.8)
[2022-02-18] MEDS: FAMOTIDINE 20 MG TAB PO SCH ×2 (08:59→22:01)
[2022-02-18] MEDS: HYDROXYUREA 500 MG CAP PO SCH ×2 (08:59→22:03)
[2022-02-18] MEDS: CYANOCOBALAMIN (B-12) 100 MCG TABLET PO SCH (08:59)
[2022-02-18] MEDS: CeleBREX 200 MG CAP PO SCH (08:59)
[2022-02-18] MEDS: POLYETHYLENE (MIRALAX) 17 GM PACK PO SCH ×2 (09:00→09:12)
[2022-02-18] MEDS: MECLIZINE HCL 25 MG TAB PO SCH ×3 (09:00→22:02)
[2022-02-18] MEDS: SENNA 8.6 MG TAB PO SCH (09:01)
[2022-02-18 09:08] LABS: Alanine Aminotransferase 36 U/L (7-52); Albumin Globulin Ratio 1.1 (0.9-2); Albumin Level 3.9 gm/dl (3.4-5.0); Alkaline Phosphatase 60 U/L (34-104); Anion Gap 4 (3-11); Aspartate Aminotransferase 36 U/L (13-39); BUN Creatinine Ratio 11.6 (10-20); Bilirubin,Total 0.9 mg/dl (0.2-1.0); Blood Urea Nitrogen 5 mg/dl (6-23); Calcium 8.9 mg/dl (8.5-10.1); Carbon Dioxide 30 mmol/L (21-32); Chloride 104 mmol/L (98-107); Creatinine Clr Calc Pharmacy 190.5 ml/min; Est GFR (African American) > 150.0 ml/min; Est GFR (Non-African American) 143.4 ml/min; Globulin 3.5 gm/dl (2.5-4.0); Glucose 91 mg/dl (70-99(Fasting)); Potassium 3.6 mmol/L (3.5-5.1); Sodium 138 mmol/L (136-145); Total Protein 7.4 gm/dl (6.0-8.3)
[2022-02-18 09:09] LABS: Basophils # (auto) 0.02 K/uL (0-0.2); Basophils % (auto) 0.5 %; Eosinophils # (auto) 0.04 K/uL (0-0.50); Immature Granulocytes # (auto) 0.01 K/uL (0.00-0.02); Immature Granulocytes % (auto) 0.2 %; Lymphocytes # (auto) 2.56 K/uL (1.2-3.4); Lymphocytes % (auto) 62.7 %; Monocytes # (auto) 0.23 K/uL (0.24-0.82); Monocytes % (auto) 5.6 %; Neutrophils # (auto) 1.22 K/uL (1.4-6.5); Sickle Cells Occasional
[2022-02-18] MEDS: NITROFURANTOIN MONOHYDRATE 100 MG CAP PO SCH ×2 (09:11→22:05)
[2022-02-18] MEDS: ACETAMINOPHEN 500 MG TAB PO SCH ×3 (09:11→22:07)
[2022-02-18] MEDS: ONDANSETRON 4 MG OD TAB PO SCH ×3 (09:11→22:01)
[2022-02-18] MEDS: diphenhydrAMINE 50 MG/ML VIAL IV PRN ×3 (11:25→23:54)
[2022-02-18] MEDS: ONDANSETRON INJ 2 MG/ML 2 ML VIAL IV PRN (13:13)
[2022-02-18] MEDS ORDERED: MoRPHine SULFATE CR 15 MG TABCR PO PRN (15:49)
[2022-02-18] MEDS: ENOXAPARIN INJ 40 MG/0.4 ML SYR SQ SCH (18:49)
--- NOTE | 2022-02-18 18:55 | Billing Data ---
Date of Service February 18, 2022 Coding Level of Care Code 86753 Subseq Hosp Care Lvl 3
--- NOTE | 2022-02-18 18:56 | Billing Data ---
Date of Service February 18, 2022 Coding Level of Care Code 27787 Subseq Hosp Care Lvl 3
[2022-02-18] MEDS: FOLIC ACID 1 MG TAB PO SCH (22:02)
[2022-02-18] MEDS: CHOLECALCIFEROL 1,000 UNITS 25 MCG TAB PO SCH (22:04)
[2022-02-19] MEDS: ZOLPIDEM TARTRATE 5 MG TAB PO PRN ×2 (00:45→21:21)
[2022-02-19] MEDS: HYDROmorphone INJ 2 MG/ML SYR/VIAL IV PRN ×9 (00:45→23:48)
[2022-02-19] MEDS: ALUMINUM/MAGNESIUM/SIMETH (MAALOX MAX) 30 ML UDC PO SCH ×5 (01:13→23:48)
[2022-02-19] MEDS: ONDANSETRON INJ 2 MG/ML 2 ML VIAL IV PRN (03:45)
--- NOTE | 2022-02-19 06:55 | Hospitalist Progress Note ---
Date of Service February 19, 2022 Assessment & Plan (1) Sickle cell crisis: Plan: Patient presents with pain reminiscent of her previous sickle cell crises, as well as an acute uncomplicated UTI. Typically at home she is on fentanyl patch at 12mcg q3d, morphine 15mg PO q8h prn, and hydroxyurea. Sickle cell disorder acute pain episode, megaloblastic anemia -Pain regimen as follows: - APAP scheduled - Fentanyl patch scheduled - morphine 15mg PO q4h PRN - Dilaudid 1.5mg IV q2h moderate/severe (8-9/10) pain - Naloxone available for patient as needed -Added Celebrex the pain regimen on 02/15, attempting to transition to home modality - LUQ US (02/02) performed to evaluate for splenic sequestration in the setting of LUQ pain; results unremarkable - Benadryl 50mg q6h prn itching - Zofran prn nausea - Meclizine scheduled for dizziness - Continue folate, B12 supplementation - PT/OT ordered to prevent deconditioning - XR Pelvis and L knee without changes from previous XR. No acute abnormalities with bones identified. Insomnia: -Continue ambien -plan to d/c once pain under control UTI, recurrent -Patient unfortunately had abdominal tenderness, cloudy and smelly urine. -UA returned positive with pyuria and bacteria with 2+ leukocyte esterase -Started 02/18 patient on Macrobid for 5 days -Culture ecoli -Afebrile at this time. Transaminitis -Has improved Borderline personality disorder - Patient's had previous psychiatric consultations for suicidal ideation and counseling for borderline personality disorder - No home psych regimen -For me has been appropriate/in a relatively stable state of depression. -Pt would like help with her anxiety, but would not like to talk to therapist or being on any of the medications she was on for depression which includes multiple SSRIs. GERD: continue famotidine FEN: regular diet, / NSS @ 80mL/hr Code status: full code DVT ppx: lovenox Dispo: med/surg, anticipate home on discharge once pain under better control/situation more manageable. Patient will need rescheduling of appointment for breast (2) Fever: (3) Elevated liver enzymes: (4) Borderline personality disorder: (5) GERD (gastroesophageal reflux disease): (6) Avascular necrosis of bone of hip: Admission and Anticipated Discharge Date Admission Date: February 01, 2022 Supervising Physician Co-Signing Physician Notes Attending attestation I personally examined the patient and verified all amaro points of history and exam, discussed case, and agree with decision making with Dr Medley Visited 2 separate times today. Sleeping comfortably both times. HPI as above. Vitals noted, no distress, breathing unlabored, no focal/asymmetry at rest Sickle cell with pain crisis, recurrent, severe -UTI with sepsis present on admission that was treated and resolved as initial insult, recurrent UTI probably has kicked up pain worsecontinue aggressive pain management. Recurrent urinary tract infectionno clear risks or anatomic appearing reasons for recurrence at this point in timeretreat, if refractory/recurrent yet again, then would consult urology, once again pansensitive E. coli. Suicidal ideation - low risk on CSRSS - monitor, consider intervention if patient wiling and concerns continue AVN of the femoral head, bilateral -we will work on getting her scheduled with orthopedics Else see resident documentation as noted. Subjective Patient seen at bedside, states not feeling better compared to yesterday chest hurts belly hurts, unsure if UTI improving urine maybe less cloudy. Denies SOB. Review of Systems Review of Systems: All systems reviewed & are unremarkable except as noted in HPI & below Physical Exam Constitutional: WD/WN, vitals as above cooperative and comfortable Eyes: PERRL, conjunctivae normal, anicteric sclerae ENMT: external ear and nose normal, oropharynx normal Neck: trachea midline, no thyromegaly Respiratory: normal respiratory effort, lungs clear to auscultation Cardiovascular: Rate/Rhythm: regular rate and regular rhythm Chest (Breasts): Chest: normal inspection of chest Gastrointestinal (Abdomen): Inspection/Auscultation: abdomen normal to inspection; abdomen not distended Percussion/Palpation: + abdomen tender and abdomen soft Skin: no rashes, warm and dry Results & Data Results & Data ([facility]) Vital Signs (Past 12 Hours) Vital Signs Temp Pulse Resp BP Pulse Ox O2 Del Method 02/18/22 21:50 36.7 C 76 16 111/78 100 Room Air Resident Activity Tracking Resident Involvement: Resident Care Provided Care Provided: Adult [place] [facility] (1) GERD (gastroesophageal reflux disease) Esophagitis presence: esophagitis presence not specified Qualified Code(s): K21.9 - Gastro-esophageal reflux disease without esophagitis
[2022-02-19] MEDS: CHECK fentaNYL PATCH PLACEMENT SCH ×3 (08:08→23:48)
[2022-02-19] MEDS: SODIUM CHLORIDE 0.45 % 1,000 ML IV SCH ×2 (09:01→21:20)
[2022-02-19] MEDS: NITROFURANTOIN MONOHYDRATE 100 MG CAP PO SCH ×2 (09:02→20:08)
[2022-02-19] MEDS: MECLIZINE HCL 25 MG TAB PO SCH ×3 (09:03→20:09)
[2022-02-19] MEDS: CeleBREX 200 MG CAP PO SCH (09:03)
[2022-02-19] MEDS: SENNA 8.6 MG TAB PO SCH (09:03)
[2022-02-19] MEDS: FAMOTIDINE 20 MG TAB PO SCH ×2 (09:03→20:09)
[2022-02-19] MEDS: HYDROXYUREA 500 MG CAP PO SCH ×2 (09:03→20:07)
[2022-02-19] MEDS: CYANOCOBALAMIN (B-12) 100 MCG TABLET PO SCH (09:03)
[2022-02-19] MEDS: POLYETHYLENE (MIRALAX) 17 GM PACK PO SCH (09:04)
[2022-02-19] MEDS: ONDANSETRON 4 MG OD TAB PO SCH ×3 (09:05→20:06)
[2022-02-19 09:16] LABS: Hematocrit (blood only) 24.8 % (34.1-44.9); Hemoglobin 9.2 g/dl (12.0-16.0); Mean Corpuscular Hgb Conc 37.1 g/dL (32.0-36.0); Mean Corpuscular Volume 105.1 fL (80.0-100.0); Mean Platelet Volume 9.6 fL (9.4-12.3); Nucleated RBC # (auto) 0.06 K/uL (0-0); Nucleated RBC % (auto) 1.5 %; Platelet Count 452 K/uL (130-400); Red Blood Count 2.36 M/uL (3.93-5.22); White Blood Count 4.13 K/ul (4.8-10.8)
[2022-02-19 09:28] LABS: Anion Gap 5 (3-11); BUN Creatinine Ratio 14.6 (10-20); Blood Urea Nitrogen 6 mg/dl (6-23); Carbon Dioxide 29 mmol/L (21-32); Chloride 102 mmol/L (98-107); Creatinine Clr Calc Pharmacy 199.8 ml/min; Est GFR (African American) > 150.0 ml/min; Est GFR (Non-African American) 145.6 ml/min; Glucose 90 mg/dl (70-99(Fasting)); Potassium 3.8 mmol/L (3.5-5.1); Sodium 136 mmol/L (136-145)
[2022-02-19] MEDS: ACETAMINOPHEN 500 MG TAB PO SCH ×3 (09:31→20:06)
[2022-02-19] MEDS: diphenhydrAMINE 50 MG/ML VIAL IV PRN ×2 (13:04→21:53)
[2022-02-19] MEDS: ENOXAPARIN INJ 40 MG/0.4 ML SYR SQ SCH (18:00)
--- NOTE | 2022-02-19 19:50 | Billing Data ---
Date of Service February 19, 2022 Coding Level of Care Code 61047 SUB INP/OBS CARE
[2022-02-19] MEDS: MoRPHine SULFATE IR 15 MG TAB (IMMEDIATE RELEASE) PO PRN (20:07)
[2022-02-19] MEDS: CHOLECALCIFEROL 1,000 UNITS 25 MCG TAB PO SCH (20:08)
[2022-02-19] MEDS: FOLIC ACID 1 MG TAB PO SCH (20:09)
[2022-02-19] MEDS: fentaNYL 12 MCG/HR TDSY TD SCH (23:36)
[2022-02-20] MEDS: HYDROmorphone INJ 2 MG/ML SYR/VIAL IV PRN ×5 (06:36→16:34)
--- NOTE | 2022-02-20 07:45 | Hospitalist Progress Note ---
Date of Service February 20, 2022 Assessment & Plan (1) Sickle cell crisis: Plan: Patient presents with pain reminiscent of her previous sickle cell crises, as well as an acute uncomplicated UTI. Typically at home she is on fentanyl patch at 12mcg q3d, morphine 15mg PO q8h prn, and hydroxyurea. Sickle cell disorder acute pain episode, megaloblastic anemia -Pain regimen as follows: - APAP scheduled - Fentanyl patch scheduled - morphine 15mg PO q4h PRN, she has used 1 dose at this time - Dilaudid 1.5mg IV q2h moderate/severe (8-9/10) pain - Naloxone available for patient as needed -Added Celebrex the pain regimen on 02/15, attempting to transition to home modality - LUQ US (02/02) performed to evaluate for splenic sequestration in the setting of LUQ pain; results unremarkable - Benadryl 50mg q6h prn itching - Zofran prn nausea - Meclizine scheduled for dizziness - Continue folate, B12 supplementation - PT/OT ordered to prevent deconditioning - XR Pelvis and L knee without changes from previous XR. No acute abnormalities with bones identified. Insomnia: -Continue ambien -plan to d/c once pain under control UTI, recurrent -Patient unfortunately had abdominal tenderness, cloudy and smelly urine. -UA returned positive with pyuria and bacteria with 2+ leukocyte esterase -Started 02/18 patient on Macrobid for 5 days -Culture ecoli -Afebrile at this time. Transaminitis -Has improved Borderline personality disorder - Patient's had previous psychiatric consultations for suicidal ideation and counseling for borderline personality disorder - No home psych regimen -has been appropriate/in a relatively stable state of depression. -Pt would like help with her anxiety, but would not like to talk to therapist or being on any of the medications she was on for depression which includes multiple SSRIs. GERD: continue famotidine FEN: regular diet, 1/2 NSS @ 80mL/hr Code status: full code DVT ppx: lovenox Dispo: med/surg, anticipate home on discharge once pain under better control/situation more manageable. Patient will need rescheduling of appointment for breast (2) Fever: (3) Elevated liver enzymes: (4) Borderline personality disorder: (5) GERD (gastroesophageal reflux disease): (6) Avascular necrosis of bone of hip: Admission and Anticipated Discharge Date Admission Date: February 01, 2022 Supervising Physician Co-Signing Physician Notes Attending attestation I personally examined the patient and verified all amaro points of history and exam, discussed case, and agree with decision making with Dr Medley Still hurting but feeling kind of restless about still being in the hospital. Would definitely like hip surgery evaluation as soon as feasible to be set up. Notes that she is starting to feel little bit dizzy after Dilaudid, and wonders if a class switch to morphine might be of benefit Sickle cell with pain crisis, recurrent, severe -UTI with sepsis present on admission that was treated and resolved as initial insult, recurrent UTI probably has kicked up pain worsecontinue aggressive pain management. Given that she does seem to develop an odd phenotype of dizziness by an almost tachyphylaxis type of a paceswitch Dilaudid over to morphine. Work on p.o. pain control, hopefully home soon Recurrent urinary tract infectionno clear risks or anatomic appearing reasons for recurrence at this point in timeretreat, if refractory/recurrent yet again, then would consult urology, once again pansensitive E. coli. Improving Suicidal ideation - low risk on CSRSS - monitor, consider intervention if patient wiling and concerns continue AVN of the femoral head, bilateral -continuing to work on getting her scheduled with orthopedics Otherwise as above Subjective Patient seen at bedside, calm comfortable cooperative. Eating breakfast, tolerating well, states today feels better than yesterday. Review of Systems Review of Systems: All systems reviewed & are unremarkable except as noted in HPI & below Physical Exam Constitutional: WD/WN, vitals as above cooperative and comfortable Eyes: PERRL, conjunctivae normal, anicteric sclerae ENMT: external ear and nose normal, oropharynx normal Neck: trachea midline, no thyromegaly Respiratory: normal respiratory effort, lungs clear to auscultation Cardiovascular: Rate/Rhythm: regular rate and regular rhythm Chest (Breasts): Chest: normal inspection of chest Gastrointestinal (Abdomen): Inspection/Auscultation: abdomen normal to inspection; abdomen not distended Percussion/Palpation: + abdomen tender and abdomen soft Skin: no rashes, warm and dry Results & Data Results & Data ([facility]) Vital Signs (Past 12 Hours) Vital Signs Temp Pulse Resp BP Pulse Ox O2 Del Method 02/19/22 19:57 37.0 C 86 16 118/79 100 Room Air Resident Activity Tracking Resident Involvement: Resident Care Provided Care Provided: Adult Hospital Medicine (1) GERD (gastroesophageal reflux disease) Esophagitis presence: esophagitis presence not specified Qualified Code(s): K21.9 - Gastro-esophageal reflux disease without esophagitis
[2022-02-20 09:29] LABS: Hematocrit (blood only) 24.9 % (34.1-44.9); Hemoglobin 9.2 g/dl (12.0-16.0); Mean Corpuscular Hemoglobin 38.3 pg (25.0-34.0); Mean Corpuscular Hgb Conc 36.9 g/dL (32.0-36.0); Mean Corpuscular Volume 103.8 fL (80.0-100.0); Mean Platelet Volume 9.1 fL (9.4-12.3); Nucleated RBC # (auto) 0.04 K/uL (0-0); Nucleated RBC % (auto) 1.1 %; Platelet Count 443 K/uL (130-400); RDW Coefficient of Variation 18.6 % (11.5-14.5); RDW Standard Deviation 69.7 fL (36.4-46.3); White Blood Count 3.78 K/ul (4.8-10.8)
[2022-02-20] MEDS: CHECK fentaNYL PATCH PLACEMENT SCH ×2 (09:42→17:17)
[2022-02-20] MEDS: ALUMINUM/MAGNESIUM/SIMETH (MAALOX MAX) 30 ML UDC PO SCH ×3 (09:42→22:10)
[2022-02-20] MEDS: POLYETHYLENE (MIRALAX) 17 GM PACK PO SCH (09:45)
[2022-02-20] MEDS: FAMOTIDINE 20 MG TAB PO SCH ×2 (09:47→20:33)
[2022-02-20] MEDS: MECLIZINE HCL 25 MG TAB PO SCH ×3 (09:47→20:35)
[2022-02-20] MEDS: CYANOCOBALAMIN (B-12) 100 MCG TABLET PO SCH (09:47)
[2022-02-20] MEDS: CeleBREX 200 MG CAP PO SCH (09:47)
[2022-02-20] MEDS: SENNA 8.6 MG TAB PO SCH (09:47)
[2022-02-20] MEDS: ONDANSETRON 4 MG OD TAB PO SCH ×3 (09:47→20:31)
[2022-02-20] MEDS: ACETAMINOPHEN 500 MG TAB PO SCH ×3 (09:47→20:31)
[2022-02-20] MEDS: NITROFURANTOIN MONOHYDRATE 100 MG CAP PO SCH ×2 (09:47→20:34)
[2022-02-20] MEDS: HYDROXYUREA 500 MG CAP PO SCH ×2 (09:47→20:34)
[2022-02-20 09:52] LABS: Anion Gap 5 (3-11); BUN Creatinine Ratio 9.1 (10-20); Blood Urea Nitrogen 4 mg/dl (6-23); Calcium 9.6 mg/dl (8.5-10.1); Carbon Dioxide 29 mmol/L (21-32); Chloride 103 mmol/L (98-107); Creatinine Clr Calc Pharmacy 186.2 ml/min; Est GFR (African American) > 150.0 ml/min; Est GFR (Non-African American) 142.3 ml/min; Glucose 87 mg/dl (70-99(Fasting)); Potassium 3.8 mmol/L (3.5-5.1); Sodium 137 mmol/L (136-145)
[2022-02-20] MEDS: diphenhydrAMINE 50 MG/ML VIAL IV PRN ×2 (11:14→20:35)
[2022-02-20] MEDS: SODIUM CHLORIDE 0.45 % 1,000 ML IV SCH (11:16)
[2022-02-20] MEDS: ONDANSETRON INJ 2 MG/ML 2 ML VIAL IV PRN (14:40)
[2022-02-20] MEDS: MoRPHine SULFATE 10 MG/ML CARP/VIAL IV PRN ×2 (18:35→20:37)
[2022-02-20] MEDS: ENOXAPARIN INJ 40 MG/0.4 ML SYR SQ SCH (20:30)
[2022-02-20] MEDS: CHOLECALCIFEROL 1,000 UNITS 25 MCG TAB PO SCH (20:33)
[2022-02-20] MEDS: FOLIC ACID 1 MG TAB PO SCH (20:33)
--- NOTE | 2022-02-20 21:09 | Billing Data ---
Date of Service February 20, 2022 Coding Level of Care Code 91076 SUB INP/OBS CARE
[2022-02-21] MEDS: SODIUM CHLORIDE 0.45 % 1,000 ML IV SCH ×2 (00:01→12:11)
[2022-02-21] MEDS: CHECK fentaNYL PATCH PLACEMENT SCH ×3 (00:01→15:38)
[2022-02-21] MEDS: ALUMINUM/MAGNESIUM/SIMETH (MAALOX MAX) 30 ML UDC PO SCH ×4 (01:40→19:49)
[2022-02-21] MEDS: MoRPHine SULFATE 10 MG/ML CARP/VIAL IV PRN ×9 (02:40→21:28)
[2022-02-21] MEDS: diphenhydrAMINE 50 MG/ML VIAL IV PRN ×3 (02:40→16:14)
--- NOTE | 2022-02-21 07:33 | Hospitalist Progress Note ---
Date of Service February 21, 2022 Assessment & Plan (1) Sickle cell crisis: Plan: Patient presents with pain reminiscent of her previous sickle cell crises, as well as an acute uncomplicated UTI. Typically at home she is on fentanyl patch at 12mcg q3d, morphine 15mg PO q8h prn, and hydroxyurea. Sickle cell disorder acute pain episode, megaloblastic anemia -Pain regimen as follows: - APAP scheduled - Fentanyl patch scheduled - morphine 15mg PO q4h PRN, she has used 1 dose at this time - Morphine 6mg IV q2h moderate/severe (8-9/10) pain - Naloxone available for patient as needed -Added Celebrex the pain regimen on 02/15, attempting to transition to home modality - LUQ US (02/02) performed to evaluate for splenic sequestration in the setting of LUQ pain; results unremarkable - Benadryl 50mg q6h prn itching - Zofran prn nausea - Meclizine scheduled for dizziness - Continue folate, B12 supplementation - PT/OT ordered to prevent deconditioning - XR Pelvis and L knee without changes from previous XR. No acute abnormalities with bones identified. Insomnia: -Continue ambien -plan to d/c once pain under control UTI, recurrent -Patient unfortunately had abdominal tenderness, cloudy and smelly urine. -UA returned positive with pyuria and bacteria with 2+ leukocyte esterase -Started 02/18 patient on Macrobid for 5 days -Culture ecoli -Afebrile at this time. Transaminitis -Has improved Borderline personality disorder - Patient's had previous psychiatric consultations for suicidal ideation and counseling for borderline personality disorder - No home psych regimen -has been appropriate/in a relatively stable state of depression. -Pt would like help with her anxiety, but would not like to talk to therapist or being on any of the medications she was on for depression which includes multiple SSRIs. GERD: continue famotidine FEN: regular diet, 1/ NSS @ 80mL/hr Code status: full code DVT ppx: lovenox Dispo: med/surg, anticipate home on discharge once pain under better control/situation more manageable. Patient will need rescheduling of appointment for breast (2) Fever: (3) Elevated liver enzymes: (4) Borderline personality disorder: (5) GERD (gastroesophageal reflux disease): (6) Avascular necrosis of bone of hip: Admission and Anticipated Discharge Date Admission Date: February 01, 2022 Supervising Physician Co-Signing Physician Notes Attending attestation I personally examined the patient and verified all amaro points of history and exam, discussed case, and agree with decision making with Dr Medley Changed to morphine helping pain. Less dizziness. Hoping she can get home in the next day or 2. Sickle cell with pain crisis, recurrent, severe -UTI with sepsis present on admission that was treated and resolved as initial insult, recurrent UTI probably has kicked up pain worsecontinue aggressive pain management. Doing better on switch to morphine. Hopefully home soon. Recurrent urinary tract infectionno clear risks or anatomic appearing reasons for recurrence at this point in timeretreat, if refractory/recurrent yet again, then would consult urology, once again pansensitive E. coli. Improving, finish course of Macrobid Suicidal ideation - low risk on CSRSS - monitor, consider intervention if patient wiling and concerns continue AVN of the femoral head, bilateral -continuing to work on getting her scheduled with orthopedics (navigator called, orthopedics office noted they would call her.) Otherwise as above Subjective Patient seen at bedside sleeping comfortably. Per nursing no acute events overnight. Patient now using IV morphine instead of IV dilaudid, tolerating well. Review of Systems Review of Systems: All systems reviewed & are unremarkable except as noted in HPI & below Physical Exam Constitutional: WD/WN, vitals as above cooperative and comfortable Eyes: PERRL, conjunctivae normal, anicteric sclerae ENMT: external ear and nose normal, oropharynx normal Neck: trachea midline, no thyromegaly Respiratory: normal respiratory effort, lungs clear to auscultation Cardiovascular: Rate/Rhythm: regular rate and regular rhythm Chest (Breasts): Chest: normal inspection of chest Gastrointestinal (Abdomen): Inspection/Auscultation: abdomen normal to inspe ction; abdomen not distended Percussion/Palpation: + abdomen tender and abdomen soft Skin: no rashes, warm and dry Results & Data Results & Data ([facility]) Vital Signs (Past 12 Hours) Vital Signs Temp Pulse Resp BP Pulse Ox O2 Del Method 02/20/22 21:12 36.5 C 79 16 106/67 98 Room Air Resident Activity Tracking Resident Involvement: Resident Care Provided Care Provided: Adult Hospital Medicine (1) GERD (gastroesophageal reflux disease) Esophagitis presence: esophagitis presence not specified Qualified Code(s): K21.9 - Gastro-esophageal reflux disease without esophagitis
[2022-02-21] MEDS: ONDANSETRON 4 MG OD TAB PO SCH ×3 (09:20→21:28)
[2022-02-21] MEDS: FAMOTIDINE 20 MG TAB PO SCH ×2 (09:20→21:11)
[2022-02-21] MEDS: CYANOCOBALAMIN (B-12) 100 MCG TABLET PO SCH (09:21)
[2022-02-21] MEDS: CeleBREX 200 MG CAP PO SCH (09:21)
[2022-02-21] MEDS: ACETAMINOPHEN 500 MG TAB PO SCH ×3 (09:21→21:10)
[2022-02-21] MEDS: MECLIZINE HCL 25 MG TAB PO SCH ×3 (09:21→21:11)
[2022-02-21] MEDS: HYDROXYUREA 500 MG CAP PO SCH ×2 (09:27→21:11)
[2022-02-21] MEDS: POLYETHYLENE (MIRALAX) 17 GM PACK PO SCH (09:28)
[2022-02-21] MEDS: SENNA 8.6 MG TAB PO SCH (09:28)
[2022-02-21] MEDS: NITROFURANTOIN MONOHYDRATE 100 MG CAP PO SCH ×2 (09:28→21:12)
[2022-02-21 09:38] LABS: Hematocrit (blood only) 24.7 % (34.1-44.9); Hemoglobin 9.1 g/dl (12.0-16.0); Mean Corpuscular Hemoglobin 39.2 pg (25.0-34.0); Mean Corpuscular Hgb Conc 36.8 g/dL (32.0-36.0); Mean Corpuscular Volume 106.5 fL (80.0-100.0); Mean Platelet Volume 9.6 fL (9.4-12.3); Nucleated RBC # (auto) 0.04 K/uL (0-0); Nucleated RBC % (auto) 1.2 %; Platelet Count 434 K/uL (130-400); RDW Coefficient of Variation 18.7 % (11.5-14.5); RDW Standard Deviation 72.9 fL (36.4-46.3); Red Blood Count 2.32 M/uL (3.93-5.22); White Blood Count 3.29 K/ul (4.8-10.8)
[2022-02-21 09:58] LABS: Anion Gap 5 (3-11); BUN Creatinine Ratio 13.3 (10-20); Blood Urea Nitrogen 6 mg/dl (6-23); Calcium 9.2 mg/dl (8.5-10.1); Carbon Dioxide 28 mmol/L (21-32); Chloride 105 mmol/L (98-107); Est GFR (African American) > 150.0 ml/min; Est GFR (Non-African American) 141.2 ml/min; Glucose 88 mg/dl (70-99(Fasting)); Potassium 3.9 mmol/L (3.5-5.1); Sodium 138 mmol/L (136-145)
[2022-02-21] MEDS: ENOXAPARIN INJ 40 MG/0.4 ML SYR SQ SCH (15:38)
--- NOTE | 2022-02-21 19:56 | Billing Data ---
Date of Service February 21, 2022 Coding Level of Care Code 04843 SUB INP/OBS CARE MIN
[2022-02-21] MEDS: FOLIC ACID 1 MG TAB PO SCH (21:11)
[2022-02-21] MEDS: CHOLECALCIFEROL 1,000 UNITS 25 MCG TAB PO SCH (21:11)
[2022-02-22] MEDS: SODIUM CHLORIDE 0.45 % 1,000 ML IV SCH ×2 (00:38→11:33)
[2022-02-22] MEDS: MoRPHine SULFATE 10 MG/ML CARP/VIAL IV PRN ×7 (00:45→20:43)
[2022-02-22] MEDS: diphenhydrAMINE 50 MG/ML VIAL IV PRN ×3 (00:45→15:10)
[2022-02-22] MEDS: CHECK fentaNYL PATCH PLACEMENT SCH ×3 (00:46→16:46)
[2022-02-22] MEDS: ALUMINUM/MAGNESIUM/SIMETH (MAALOX MAX) 30 ML UDC PO SCH ×4 (02:45→20:39)
--- NOTE | 2022-02-22 07:13 | Hospitalist Progress Note ---
Date of Service February 22, 2022 Assessment & Plan (1) Sickle cell crisis: Plan: Patient presents with pain reminiscent of her previous sickle cell crises, as well as an acute uncomplicated UTI. Typically at home she is on fentanyl patch at 12mcg q3d, morphine 15mg PO q8h prn, and hydroxyurea. Sickle cell disorder acute pain episode, megaloblastic anemia -Pain regimen as follows: - APAP scheduled - Fentanyl patch scheduled - morphine 15mg PO q4h PRN - Morphine 6mg IV q2h moderate/severe (8-9/10) pain - Naloxone available for patient as needed -Added Celebrex the pain regimen on 02/15, attempting to transition to home modality - LUQ US (02/02) performed to evaluate for splenic sequestration in the setting of LUQ pain; results unremarkable - Benadryl 50mg q6h prn itching - Zofran prn nausea - Meclizine scheduled for dizziness - Continue folate, B12 supplementation - PT/OT ordered to prevent deconditioning - XR Pelvis and L knee without changes from previous XR. No acute abnormalities with bones identified. -pain currently well controlled, patient optimistic switching to oral regime Insomnia: -Continue ambien -plan to d/c once pain under control UTI, recurrent -Patient unfortunately had abdominal tenderness, cloudy and smelly urine. -UA returned positive with pyuria and bacteria with 2+ leukocyte esterase -Started 02/18 patient on Macrobid for 5 days -Culture ecoli -Afebrile at this time. Transaminitis -Has improved Borderline personality disorder - Patient's had previous psychiatric consultations for suicidal ideation and counseling for borderline personality disorder - No home psych regimen -has been appropriate/in a relatively stable state of depression. -Pt would like help with her anxiety, but would not like to talk to therapist or being on any of the medications she was on for depression which includes multiple SSRIs. GERD: continue famotidine FEN: regular diet, 1/2 NSS @ 80mL/hr Code status: full code DVT ppx: lovenox Dispo: med/surg, anticipate home on discharge once pain under better control/situation more manageable. Patient will need rescheduling of appointment for breast (2) Fever: (3) Elevated liver enzymes: (4) Borderline personality disorder: (5) GERD (gastroesophageal reflux disease): (6) Avascular necrosis of bone of hip: Admission and Anticipated Discharge Date Admission Date: February 01, 2022 Supervising Physician Co-Signing Physician Notes Attending attestation I personally examined the patient and verified all amaro points of history and exam, discussed case, and agree with decision making with Dr Galindo arriola that the cahnge to morphine really helped. hoping home tomorrow Sickle cell with pain crisis, recurrent, severe -UTI with sepsis present on admission that was treated and resolved as initial insult, recurrent UTI probably has kicked up pain worsecontinue aggressive pain management. Doing better on switch to morphine. Hopefully home tomorrow Recurrent urinary tract infectionno clear risks or anatomic appearing reasons for recurrence at this point in timeretreat, if refractory/recurrent yet again, then would consult urology, once again pansensitive E. coli. Improving, finish course of Macrobid Suicidal ideation - low risk on CSRSS - monitor, consider intervention if patient wiling and concerns continue AVN of the femoral head, bilateral -continuing to work on getting her scheduled with orthopedics (navigator called, orthopedics office noted they would call her.) Otherwise as above Subjective Patient seen at bedside, calm comfortable cooperative. States she feels better today, open to the idea of switching over to more oral morphine usage, possibly might be well enough for home tomorrow. Denies SOB, states chest pain abd pain improved Review of Systems Review of Systems: All systems reviewed & are unremarkable except as noted in HPI & below Physical Exam Constitutional: WD/WN, vitals as above cooperative and comfortable Eyes: PERRL, conjunctivae normal, anicteric sclerae ENMT: external ear and nose normal, oropharynx normal Neck: trachea midline, no thyromegaly Respiratory: normal respiratory effort, lungs clear to auscultation Cardiovascular: Rate/Rhythm: regular rate and regular rhythm Chest (Breasts): Chest: normal inspection of chest Gastrointestinal (Abdomen): Inspection/Auscultation: abdomen normal to inspection; abdomen not distended Percussion/Palpation: + abdomen tender and abdomen soft Skin: no rashes, warm and dry Results & Data Results & Data ([facility]) Vital Signs (Past 12 Hours) Vital Signs Temp Pulse Resp BP Pulse Ox O2 Del Method 02/21/22 22:26 36.6 C 66 16 93/60 L 100 Room Air Resident Activity Tracking Resident Involvement: Resident Care Provided Care Provided: Adult Hospital Medicine (1) GERD (gastroesophageal reflux disease) Esophagitis presence: esophagitis presence not specified Qualified Code(s): K21.9 - Gastro-esophageal reflux disease without esophagitis
[2022-02-22 08:53] LABS: Hemoglobin 9.1 g/dl (12.0-16.0); Mean Corpuscular Hemoglobin 39.2 pg (25.0-34.0); Mean Corpuscular Hgb Conc 36.4 g/dL (32.0-36.0); Mean Corpuscular Volume 107.8 fL (80.0-100.0); Mean Platelet Volume 9.2 fL (9.4-12.3); Nucleated RBC # (auto) 0.04 K/uL (0-0); Nucleated RBC % (auto) 1.2 %; Platelet Count 415 K/uL (130-400); RDW Coefficient of Variation 18.9 % (11.5-14.5); RDW Standard Deviation 74.6 fL (36.4-46.3); Red Blood Count 2.32 M/uL (3.93-5.22); White Blood Count 3.45 K/ul (4.8-10.8)
[2022-02-22] MEDS: FAMOTIDINE 20 MG TAB PO SCH ×2 (08:53→20:41)
[2022-02-22] MEDS: MECLIZINE HCL 25 MG TAB PO SCH ×3 (08:53→20:40)
[2022-02-22] MEDS: ACETAMINOPHEN 500 MG TAB PO SCH ×3 (08:53→20:41)
[2022-02-22] MEDS: CeleBREX 200 MG CAP PO SCH (08:53)
[2022-02-22] MEDS: HYDROXYUREA 500 MG CAP PO SCH ×2 (08:53→20:40)
[2022-02-22] MEDS: ONDANSETRON 4 MG OD TAB PO SCH ×3 (08:53→20:39)
[2022-02-22] MEDS: NITROFURANTOIN MONOHYDRATE 100 MG CAP PO SCH ×2 (08:53→20:40)
[2022-02-22] MEDS: CYANOCOBALAMIN (B-12) 100 MCG TABLET PO SCH (08:54)
[2022-02-22] MEDS: SENNA 8.6 MG TAB PO SCH (08:54)
[2022-02-22] MEDS: POLYETHYLENE (MIRALAX) 17 GM PACK PO SCH (08:54)
[2022-02-22] MEDS ORDERED: MAGNESIUM HYDROXIDE SUSP 30 ML UDC PO ONE ×2 (09:02→13:00)
[2022-02-22 09:17] LABS: Anion Gap 3 (3-11); BUN Creatinine Ratio 11.6 (10-20); Blood Urea Nitrogen 5 mg/dl (6-23); Calcium 9.1 mg/dl (8.5-10.1); Carbon Dioxide 30 mmol/L (21-32); Chloride 105 mmol/L (98-107); Creatinine Clr Calc Pharmacy 190.5 ml/min; Est GFR (African American) > 150.0 ml/min; Est GFR (Non-African American) 143.4 ml/min; Glucose 69 mg/dl (70-99(Fasting)); Potassium 3.5 mmol/L (3.5-5.1); Sodium 138 mmol/L (136-145)
--- NOTE | 2022-02-22 19:21 | Billing Data ---
Date of Service February 22, 2022 Coding Level of Care Code [id number] SUB INP/OBS CARE MIN
[2022-02-22] MEDS: ENOXAPARIN INJ 40 MG/0.4 ML SYR SQ SCH (20:39)
[2022-02-22] MEDS: FOLIC ACID 1 MG TAB PO SCH (20:39)
[2022-02-22] MEDS: CHOLECALCIFEROL 1,000 UNITS 25 MCG TAB PO SCH (20:42)
[2022-02-22] MEDS: fentaNYL 12 MCG/HR TDSY TD SCH (21:56)
[2022-02-23] MEDS: MoRPHine SULFATE 10 MG/ML CARP/VIAL IV PRN ×5 (00:03→14:05)
[2022-02-23] MEDS: SODIUM CHLORIDE 0.45 % 1,000 ML IV SCH ×2 (00:04→12:05)
[2022-02-23] MEDS: diphenhydrAMINE 50 MG/ML VIAL IV PRN ×2 (01:04→12:06)
[2022-02-23] MEDS: CHECK fentaNYL PATCH PLACEMENT SCH ×3 (01:08→15:13)
[2022-02-23] MEDS: ALUMINUM/MAGNESIUM/SIMETH (MAALOX MAX) 30 ML UDC PO SCH ×3 (01:26→14:36)
[2022-02-23] MEDS ORDERED: MELATONIN 3 MG TAB PO PRN (02:34)
--- NOTE | 2022-02-23 08:21 | Hospitalist Progress Note ---
Date of Service February 23, 2022 Assessment & Plan (1) Sickle cell crisis: Plan: Patient presents with pain reminiscent of her previous sickle cell crises, as well as an acute uncomplicated UTI. Typically at home she is on fentanyl patch at 12mcg q3d, morphine 15mg PO q8h prn, and hydroxyurea. Sickle cell disorder acute pain episode, megaloblastic anemia -Pain regimen as follows: - APAP scheduled - Fentanyl patch scheduled - morphine 15mg PO q4h PRN - Morphine 6mg IV q2h moderate/severe (8-9/10) pain - Naloxone available for patient as needed -Added Celebrex the pain regimen on 02/15, attempting to transition to home modality - LUQ US (02/02) performed to evaluate for splenic sequestration in the setting of LUQ pain; results unremarkable - Benadryl 50mg q6h prn itching - Zofran prn nausea - Meclizine scheduled for dizziness - Continue folate, B12 supplementation - PT/OT ordered to prevent deconditioning - XR Pelvis and L knee without changes from previous XR. No acute abnormalities with bones identified. -pain currently well controlled, patient optimistic switching to oral regime Insomnia: -Continue ambien -plan to d/c once pain under control UTI, recurrent -Patient unfortunately had abdominal tenderness, cloudy and smelly urine. -UA returned positive with pyuria and bacteria with 2+ leukocyte esterase -Started 02/18 patient on Macrobid for 5 days -Culture ecoli -Afebrile at this time. Transaminitis -Has improved Borderline personality disorder - Patient's had previous psychiatric consultations for suicidal ideation and counseling for borderline personality disorder - No home psych regimen -has been appropriate/in a relatively stable state of depression. -Pt would like help with her anxiety, but would not like to talk to therapist or being on any of the medications she was on for depression which includes multiple SSRIs. GERD: continue famotidine FEN: regular diet, 1/2 NSS @ 80mL/hr Code status: full code DVT ppx: lovenox Dispo: med/surg, anticipate home on discharge once pain under better control/situation more manageable. Patient will need rescheduling of appointment for breast (2) Fever: (3) Elevated liver enzymes: (4) Borderline personality disorder: (5) GERD (gastroesophageal reflux disease): (6) Avascular necrosis of bone of hip: Admission and Anticipated Discharge Date Admission Date: February 01, 2022 Results & Data Results & Data ([facility]) Vital Signs (Past 12 Hours) Vital Signs Temp Pulse Resp BP BP Pulse Ox O2 Del Method 02/23/22 07:33 36.8 C 87 16 94/55 L 98 Room Air 02/22/22 21:47 36.7 C 67 14 99/55 L 100 Room Air (1) GERD (gastroesophageal reflux disease) Esophagitis presence: esophagitis presence not specified Qualified Code(s): K21.9 - Gastro-esophageal reflux disease without esophagitis
[2022-02-23] MEDS: MoRPHine SULFATE IR 15 MG TAB (IMMEDIATE RELEASE) PO PRN ×2 (08:52→16:25)
[2022-02-23] MEDS: HYDROXYUREA 500 MG CAP PO SCH (08:54)
[2022-02-23] MEDS: FAMOTIDINE 20 MG TAB PO SCH (08:54)
[2022-02-23] MEDS: SENNA 8.6 MG TAB PO SCH (08:54)
[2022-02-23] MEDS: CeleBREX 200 MG CAP PO SCH (08:54)
[2022-02-23] MEDS: MECLIZINE HCL 25 MG TAB PO SCH ×2 (08:54→14:36)
[2022-02-23] MEDS: CYANOCOBALAMIN (B-12) 100 MCG TABLET PO SCH (08:54)
[2022-02-23] MEDS: POLYETHYLENE (MIRALAX) 17 GM PACK PO SCH (08:55)
[2022-02-23 08:57] LABS: Hematocrit (blood only) 23.9 % (34.1-44.9); Hemoglobin 8.8 g/dl (12.0-16.0); Mean Corpuscular Hemoglobin 39.5 pg (25.0-34.0); Mean Corpuscular Hgb Conc 36.8 g/dL (32.0-36.0); Mean Corpuscular Volume 107.2 fL (80.0-100.0); Mean Platelet Volume 9.3 fL (9.4-12.3); Nucleated RBC # (auto) 0.05 K/uL (0-0); Nucleated RBC % (auto) 1.4 %; Platelet Count 370 K/uL (130-400); RDW Coefficient of Variation 18.9 % (11.5-14.5); RDW Standard Deviation 75.5 fL (36.4-46.3); Red Blood Count 2.23 M/uL (3.93-5.22); White Blood Count 3.69 K/ul (4.8-10.8)
[2022-02-23] MEDS: ONDANSETRON 4 MG OD TAB PO SCH ×2 (08:59→14:36)
[2022-02-23] MEDS: ACETAMINOPHEN 500 MG TAB PO SCH ×2 (08:59→14:36)
[2022-02-23 09:17] LABS: Anion Gap 5 (3-11); BUN Creatinine Ratio 12.2 (10-20); Blood Urea Nitrogen 5 mg/dl (6-23); Calcium 8.8 mg/dl (8.5-10.1); Carbon Dioxide 29 mmol/L (21-32); Chloride 103 mmol/L (98-107); Creatinine Clr Calc Pharmacy 199.8 ml/min; Est GFR (African American) > 150.0 ml/min; Est GFR (Non-African American) 145.6 ml/min; Glucose 87 mg/dl (70-99(Fasting)); Magnesium 1.5 mg/dl (1.7-2.4); Potassium 3.9 mmol/L (3.5-5.1); Sodium 137 mmol/L (136-145)
[2022-02-23] MEDS ORDERED: MAGNESIUM HYDROXIDE SUSP 30 ML UDC PO SCH (09:30)
--- NOTE | 2022-02-23 13:24 | Discharge Summary ---
Date of Service February 23, 2022 Admission HPI Per Admitting Provider 21-year-old female with history of sickle cell disease who presents with diffuse body pain and back pain reminiscent of previous sickle cell crisis. Patient also is been having cloudy urine patient is due to graduate on February 02 1 day after admission. Patient was recently discharged from our facility January 16 after a 27-day stay surrounding pain from her sickle cell. Patient does have a history of previous suicidal ideation borderline personality and opiate hyperalgesia syndrome. Patient denies any other inciting events in her life any changes in her sleep stress or diet with the exception over the last day due to the pain she is not eating as much she is trying to keep up with hydration. She was tachycardic on presentation. She is a mild leukocytosis of 13 her hemoglobin is stable to improved at 9 g she is a reticulocyte count of 4.5 corrected that will be probably near 6 or 7, her bilirubin is 2.7, bio fire is negative Admission Exam Per Admitting Provider The patient appeared well nourished and normally developed. Vital signs as documented. Head exam is normocephalic atraumatic Neck is without JVD, thyromegaly, or carotid bruits. No lymphadenopathy Lungs are clear to auscultation, no focal loss of breath sounds Cardiac exam, Rhythm is regular.. No murmurs, rubs or gallops. Abdominal exam reveals normal bowel sounds, soft non tender, no splenomegaly was able to be palpated Extremities are nonedematous and both pedal pulses are present there is no focal large bone pain or joint pain Neurologic exam is alert and oriented, no focal loss of strength or sensation Skin is without bruises or rashes Psychologically is with for depression. Patient avoided eye contact talked in a low tone. Principal Diagnosis Sickle Cell Crisis Discharge Exam Constitutional well developed, well nourished, cooperative and comfortable Eyes PERRL, conjunctivae normal, anicteric sclerae ENMT external ear and nose normal, oropharynx normal Neck trachea midline, no thyromegaly Respiratory normal respiratory effort, lungs clear to auscultation Cardiovascular Rate/Rhythm: regular rate and regular rhythm Gastrointestinal (Abdomen) Inspection/Auscultation: abdomen normal to inspection; abdomen not distended Percussion/Palpation: + abdomen tender (mild) and abdomen soft Skin no rashes, warm and dry Discharge Data Allergies Allergy/AdvReac Type Severity Reaction Status Date / Time adhesive Allergy Intermediate Blister Verified 12/21/21 00:44 Consultations 02/01/22 13:59 ED Decision to Admit Stat Ordered Studies 02/02/22 11:09 US abdomen limited Urgent Hospital Course (1) Sickle cell crisis: Patient presents with pain reminiscent of her previous sickle cell crises, as well as an acute uncomplicated UTI. Typically at home she is on fentanyl patch at 12mcg q3d, morphine 15mg PO q8h prn, and hydroxyurea. Home Pain Regime: -Fentanyl 12mcg every 3 days -Morphine IR 15mg QID PRN -Celebrex 200mg daily -scheduled tylenol Sickle cell disorder acute pain episode, megaloblastic anemia -Pain regimen in hospital as follows: - APAP scheduled - Fentanyl patch scheduled - morphine 15mg PO q4h PRN - Morphine 6mg IV q2h moderate/severe (8-9/10) pain - Naloxone available for patient as needed -Added Celebrex the pain regimen on 02/15, attempting to transition to home modality - LUQ US (02/02) performed to evaluate for splenic sequestration in the setting of LUQ pain; results unremarkable - Benadryl 50mg q6h prn itching - Zofran prn nausea - Meclizine scheduled for dizziness - Continue folate, B12 supplementation - PT/OT ordered to prevent deconditioning - XR Pelvis and L knee without changes from previous XR. No acute abnormalities with bones identified. -pain currently well controlled, patient switching to oral regime Insomnia: -Continue ambien -plan to d/c once pain under control UTI, recurrent -Patient unfortunately had abdominal tenderness, cloudy and smelly urine. -UA returned positive with pyuria and bacteria with 2+ leukocyte esterase -Started 1/2 patient on Macrobid for 5 days -Culture ecoli -Afebrile at this time. Transaminitis -Has improved Borderline personality disorder - Patient's had previous psychiatric consultations for suicidal ideation and counseling for borderline personality disorder - No home psych regimen -has been appropriate/in a relatively stable state of depression. -Pt would like help with her anxiety, but would not like to talk to therapist or being on any of the medications she was on for depression which includes multiple SSRIs. GERD: continue famotidine (2) Fever: (3) Elevated liver enzymes: (4) Borderline personality disorder: (5) GERD (gastroesophageal reflux disease): (6) Avascular necrosis of bone of hip: Total Time Total Time Spent Total Time Spent (In Minutes): <30 Discharge Plan Discharge Items Patient Disposition: Home - Self-Care Reason For Visit: SICKLE CELL CRISIS, ABN UA Discharge Diagnosis: Sickle Cell Crisis Condition on Discharge: Fair Activity: Resume your previous activity Non-emergency contact: Primary Care Provider Call non-emergency contact if: you have any medication questions, your symptoms worsen and your pain is concerning for you Follow-up/Referrals: Jaret Garland MD [Primary Care Provider] - Diet: Regular Addtl Attending Provider Instructions: You were admitted to the hospital for sickle cell crisis. You were treated with pain medication, and your symptoms improved. A discharge summary will be sent to your primary care physician to ensure continuity of care. Please bring this discharge summary with you to your next office appointment so that your provider can review it at that time. Follow-up appointments: Make a follow-up appointment with your PCP within the next week. It is very important that you follow up with them shortly after discharge from the hospital. Keep all your follow-up appointments as already scheduled. If you cannot make an appointment, notify your provider. Medications: Your medication list has been reviewed and reconciled upon discharge to ensure accuracy and continuity of care. An updated list of all your medications is included with your hospital discharge paperwork. Please review this list closely, and make note of any changes. * We sent a new medication called Morphine IR to your pharmacy. Take Morphine IR 15mg up to four times a day for pain. * We sent a new medication called Fentanyl patch to your pharmacy. Use Fentanyl 12mcg patch once every three days. Remember to remove the previous patch before applying a new one. * We will have you give a trial to remeron (mirtazapine) 15mg at bedtime - it usually helps with sleep, and over time can act as an antidepressant (and maybe plausibally impact pain) Take your medications as instructed; do not skip a dose of your medicines. Make sure all of your doctors know every medicine you are taking (including srdq-[id number] medicines, vitamins, and supplements). Call your primary care provider before taking any new medicines (including kkxp-cit-aslhtkq medicines, vitamins, and supplements), because some of these may interact with your current medications, or may make your symptoms worse. Tell your primary care provider if you cannot afford your medications. CONTACT YOUR PRIMARY CARE PROVIDER if you experience any of the following: Increased difficulty breathing, fever Increased sedation or confusion Difficulty following your treatment plan, or difficulty taking medications CALL 911 OR GO TO THE EMERGENCY DEPARTMENT if you experience any of the following: Sudden, severe abdominal pain or nausea/vomiting Severe chest pain, or chest pain that radiates (moves) to your jaw or arm Sudden, severe shortness of breath or difficulty breathing Thank you for allowing us to participate in your care. Pending Studies at Discharge: No Stand-Alone Forms: My [facility], Smoking Cessation Medications and DC Order Prescriptions: New mirtazapine [Remeron] 15 mg tablet 15 mg PO HS Qty: 30 0RF celecoxib [Celebrex] 200 mg capsule 200 mg PO DAILY PRN (Reason: pain) Qty: 30 0RF Continued polyethylene glycol 3350 17 gram/dose powder 17 g PO DAILY PRN (Reason: Constipation) cholecalciferol (vitamin D3) [Vitamin D3] 25 mcg (1,000 unit) Tablet 25 mcg PO HS meclizine 25 mg tablet 25 mg PO TID PRN (Reason: Dizziness) morphine 15 mg tablet 15 mg PO Q8H PRN (Reason: pain) Qty: 90 0RF fentanyl 12 mcg/hr Patch 72 Hour 12 mcg transdermal Q3D Qty: 10 0RF naloxone [Narcan] 4 mg/actuation spray,non-aerosol 4 mg INTRANASAL UD PRN (Reason: opiod overdose) Qty: 2 0RF hydroxyurea 500 mg capsule 1,000 mg PO BID folic acid 1 mg Tablet 2 mg PO HS ondansetron 4 mg tablet,disintegrating 4 mg PO TID Qty: 30 0RF Discharge Orders: Discharge Order (Routine); Ordered 02/23/22 Ordered By: Cesar Kerr Admission Data Admit Date/Time: 02/01/22 14:20 Attending Provider: Cesar Kerr Admit Provider: Harpreet Alamo Primary Care Provider: Jaret Garland Other Providers: Harpreet Alamo ; Caty Serna ; Gaston Flynn ; [facility] ; Jamie Shaw Other Interventions: Discharge Summary Assessment (RN) Last Done: 02/23/22 17:18 Supervising Physician Co-Signing Physician Notes I personally examined the patient and verified all amaro points of history and exam, discussed case, and agree with decision making with Dr Medley feels up to going home today Sickle cell with pain crisis, recurrent, severe -UTI with sepsis present on admission that was treated and resolved as initial insult, recurrent UTI probably has kicked up pain worsenow doing better safe/stable for home Recurrent urinary tract infectionno clear risks or anatomic appearing reasons for recurrence at this point in timeretreat, if refractory/recurrent yet again, then would consult urology, once again pansensitive E. coli. Improving, finish course of Macrobid Suicidal ideation - low risk on CSRSS - monitor, consider intervention if patient wiling and concerns continue AVN of the femoral head, bilateral -continuing to work on getting her scheduled with orthopedics (navigator called, orthopedics office noted they would call her.) Otherwise as above Resident Activity Tracking Resident Involvement: Resident Care Provided Care Provided: Adult Hospital Medicine
--- NOTE | 2022-02-23 19:43 | Billing Data ---
Date of Service February 23, 2022 Coding Level of Care Code HOSP INP/OBS DISCH 30 MIN/LESS
== END 2022-02-23 18:03 | disposition home or self-care (01) | DRG 871 ==
LOC: ED 11:52 → SUPCPDRO 14:20 → EDINP 14:20 → SUATTDRO 14:20 → 3W 21:13

== ENCOUNTER 2022-03-27 06:02 | Inpatient (IN) ==
--- NOTE | 2022-03-08 10:45 | PAT Medication Instructions ---
Medication Instructions Date of Service March 08, 2022 Home Medications Medication Instructions Recorded ondansetron 4 mg disintegrating 4 mg PO TID #30 tabs 11/07/21 tablet celecoxib 200 mg capsule (Celebrex) 200 mg PO DAILY PRN pain #30 caps 02/23/22 fentanyl 12 mcg/hr transdermal 12 mcg transdermal Q3D #10 ea 02/23/22 patch mirtazapine 15 mg tablet (Remeron) 15 mg PO HS #30 tabs 02/23/22 morphine 15 mg immediate release 15 mg PO Q8H PRN pain #90 tabs 02/23/22 tablet naloxone 4 mg/actuation nasal 4 mg intranasal UD PRN opiod 02/23/22 spray (Narcan) overdose #2 ea Wheeled Walker #1 ea 03/04/22 folic acid 1 mg tablet 2 mg PO HS hydroxyurea 500 mg capsule 1,000 mg PO BID polyethylene glycol 3350 17 gram/dose oral powder 17 g PO DAILY PRN ondansetron 4 mg disintegrating tablet 4 mg PO TID meclizine 25 mg tablet 25 mg PO TID PRN celecoxib 200 mg capsule (Celebrex) 200 mg PO DAILY PRN fentanyl 12 mcg/hr transdermal patch 12 mcg transdermal Q3D mirtazapine 15 mg tablet (Remeron) 15 mg PO HS morphine 15 mg immediate release tablet 15 mg PO Q8H PRN naloxone 4 mg/actuation nasal spray (Narcan) 4 mg intranasal UD PRN Wheeled Walker Continue as directed naloxone 4 mg/actuation nasal spray (Narcan) 4 mg intranasal UD PRN(if needed) ASK your surgeon for instructions celecoxib 200 mg capsule (Celebrex) 200 mg PO DAILY PRN ASK your prescriber and surgeon hydroxyurea 500 mg capsule 1,000 mg PO BID fentanyl 12 mcg/hr transdermal patch 12 mcg transdermal Q3D (do not apply on or near surgical site) DO NOT take the morning of surgery polyethylene glycol 3350 17 gram/dose oral powder 17 g PO DAILY PRN meclizine 25 mg tablet 25 mg PO TID PRN Take morning of surgery With a small sip of water, OTHERWISE NOTHING TO EAT OR DRINK AFTER MIDNIGHT: ondansetron 4 mg disintegrating tablet 4 mg PO TID morphine 15 mg immediate release tablet 15 mg PO Q8H PRN(if needed) Take evening before surgery folic acid 1 mg tablet 2 mg PO HS ondansetron 4 mg disintegrating tablet 4 mg PO TID meclizine 25 mg tablet 25 mg PO TID PRN(if needed) mirtazapine 15 mg tablet (Remeron) 15 mg PO HS morphine 15 mg immediate release tablet 15 mg PO Q8H PRN(if needed) Other Notes If you have any questions please call us at [phone] or [phone] or [phone] or [phone]
--- NOTE | 2022-03-12 12:02 | Anesthesiology Consultation ---
Date of Service March 12, 2022 Assessment & Plan (1) Encounter for pre-operative examination: - check urine test STAT Am DOS. - 2/6 systolic murmur, possible PFO vs pulmonary AVM on 2020 echo and case overall discussed with Dr. York who advised pt is acceptable to proceed without further evaluation or testing from his standpoint. - difficult IV stick, IV team needed. Marked on OR notification sheet. - type and screen: Per Jeremiah with blood bank, pathologist is advising cancelling type and screen today as will need repeated within 72 hours of surgery anyway. She advised pt can just present 1 hour earlier DOS for blood bank work-up. Amalia with OR made aware. - discharge summary 02/23/22 [facility]: "...Sickle cell crisis...presents with pain reminiscent of her previous sickle cell crises, as well as an acute uncomplicated UTI. Typically at home she is on fentanyl patch at 12mcg q3d, morphine 15mg PO q8h prn, and hydroxyurea...Sickle cell disorder acute pain episode, megaloblastic anemia...pain currently well controlled, patient swit wade to oral regime UTI, recurrent-Patient unfortunately had abdominal tenderness, cloudy and smelly urine-UA returned positive with pyuria and bacteria with 2+ leukocyte esterase-Started 1/2 patient on Macrobid for 5 days- Culture ecoli...Transaminitis-Has improved..." - Outpatient joint assessment: Patient is currently scheduled for inpatient pathway. If re-evaluated pending system levels during current pandemic/surgeon requests outpatient pathway, patient is not acceptable candidate for outpatient joint program from anesthesia standpoint. Chart Review Chart Review: Acceptable Risk for Surgery and Patient seen in Pre Admission Testing Teaching & Discussion Pre-Anesthesia Teaching/Discussion Notes: Instructed NPO after midnight before surgery, except medications with 15 cc of water. Medication instructions provided according to the PAT guidelines. History Surgery Operation Date: 03/27/22 07:00 Proposed Procedures p Left Total Hip Arthroplasty - Jp Castrejon MD Height/Weight Height: 5 ft 7 in Weight: 67.9 kg Allergies Allergy/AdvReac Type Severity Reaction Status Date / Time adhesive Allergy Intermediate Blister Verified 03/07/22 09:04 Medications Home Medications Medication Instructions Recorded Confirmed Last Taken folic acid 1 mg tablet 2 mg PO HS 01/31/21 03/07/2222 hydroxyurea 500 mg capsule 1,000 mg PO BID 01/31/21 03/07/22 12/20/21 08:00 polyethylene glycol 3350 17 17 g PO DAILY PRN Constipation 08/13/21 03/07/22 Unknown gram/dose oral powder ondansetron 4 mg disintegrating 4 mg PO TID #30 tabs 11/07/21 03/07/22 12/20/21 14:00 tablet meclizine 25 mg tablet 25 mg PO TID PRN Dizziness 12/20/21 03/07/22 Unknown celecoxib 200 mg capsule (Celebrex) 200 mg PO DAILY PRN pain #30 caps 02/23/22 03/07/22 Unknown fentanyl 12 mcg/hr transdermal 12 mcg transdermal Q3D #10 ea 02/23/22 03/07/22 Unknown patch mirtazapine 15 mg tablet (Remeron) 15 mg PO HS #30 tabs 02/23/22 03/07/22 Unknown morphine 15 mg immediate release 15 mg PO Q8H PRN pain #90 tabs 02/23/22 03/07/22 Unknown tablet naloxone 4 mg/actuation nasal 4 mg intranasal UD PRN opiod 02/23/22 03/07/22 Unknown spray (Narcan) overdose #2 ea Wheeled Walker #1 ea 03/04/22 03/04/22 Unknown Lactobacillus cap PO QAM 03/12/22 Unknown acidophilus-Bifidobac.animalis 2.5 billion cell capsule (Daily Probiotic) magnesium tab PO QAM 03/12/22 Unknown potassium QAM 03/12/22 Unknown Additional Notes: Pt reported also taking probiotic, magnesium and potassium supplements. These were written on provided medication instructions and she was advised do NOT take these day of surgery. She verbalized full understanding and agreement, denied questions, concerns or additional supplements/medications. Past Medical History Medical History (Updated 03/12/22 @ 12:11 by Nicki Ahumada PA-C) Anxiety Avascular necrosis of bone of left hip Borderline personality disorder Cardiac murmur no time recorder. echo 2020 (scanned in system) Chronic pain Depression GERD (gastroesophageal reflux disease) variable breakthrough symptoms per pt History of blood transfusion with most recent hospitalization per pt History of sickle cell crisis History of suicidal ideation denies any current SI Seizures last seizure 1 mo ago per pt. no longer follows with neurology. reports last neuro appt > 1 year ago. Sickle cell anemia Sickle cell disease Patient denies h/o stroke, heart attack, heart failure, DM, HTN, blood clots or blood transfusions. Exercise / Class Metabolic Activity II 4-5 Yardwork/Stairs/Walk up hill (occasional chest discomfort ongoing x yrs; denies change or worsening; associated with occasional shortness of breath) Past Family History Family History Mother Hypertension Father Ulcer Other Family history non-contributory No family history of adverse response to anesthesia Past Surgical History Surgical History No history of previous surgery Past Anesthesia History No Family Hx of Anesthesia Complications History of PONV No Hx of Motion Sickness Social History Smoking Status: Never smoker Do You Dip or Chew Tobacco: No Hx Alcohol Use: Yes Alcohol type: wine and hard liquor alcohol intake frequency: a few times a month Hx Substance Use: No substance use type: does not use Substance Use Type Other:: Pt states she uses CBD for pain-advised Last Used Substance: Just Prior to Arrival Review of Systems Patient denies chest pain, shortness of breath, dyspnea on exertion, snoring, witnessed apneas, fever, chills, cough, wheezing, or palpitations. Physical Exam Vital Signs Vitals BP 104/69 P 83 TEMP 98.3 SP02 100% on RA RESP 17 Physical Full cervical extension range of motion without pain TMD 3.5 finger breadths Mallampati Score 2 Dentition: pt states potentially has a chipped tooth; denies loose teeth, caps/crowns, implants or bridges Lungs: normal respiratory effort. Clear throughout to auscultation, no adventitious breath sounds Cardiac: regular rate and rhythm, 2/6 systolic murmur Carotid arteries: negative bruit bilat Lab Results Anesthesia Preop Results Results Anesthesia Widget: WBC 4.64 K/ul (4.8-10.8) L 03/12/22 Hgb 8.9 g/dl (12.0-16.0) L 03/12/22 Hct 23.9 % (34.1-44.9) L 03/12/22 Plt 190 K/uL (130-400) 03/12/22 Na 137 mmol/L (136-145) 03/12/22 K 4.0 mmol/L (3.5-5.1) 03/12/22 Cl 104 mmol/L (98-107) 03/12/22 CO2 26 mmol/L (21-32) 03/12/22 BUN 9 mg/dl (6-23) 03/12/22 Creat 0.56 mg/dl (0.6-1.2) L 03/12/22 Glucose Level 75 mg/dl (70-99(Fasting)) 03/12/22 PT 10.9 Seconds (9.0-12.0) 03/12/22 PTT 23.1 Seconds (21.0-31.0) 03/12/22 INR 1.0 (0.9-1.1) 03/12/22 Urine Color Yellow 02/17/22 Urine Appearance Clear (Clear) 02/17/22 Urine pH 7.0 (4.5-7.5) 02/17/22 Urine Specific [place] 1.007 (1.000-1.030) 02/17/22 Urine Protein Negative (Negative) 02/17/22 Urine Glucose (UA) Negative (Negative) 02/17/22 Urine Ketones Negative (Negative) 02/17/22 Urine Blood Negative (Negative) 02/17/22 Urine Nitrite Positive (Negative) A 02/17/22 Urine Bilirubin Negative (Negative) 02/17/22 Urine Urobilinogen Negative (Negative) 02/17/22 Urine Leukocyte Esterase 2+ (Negative) H 02/17/22 Urine WBC (Auto) 10-30 /hpf (0-5) H 02/17/22 Urine RBC (Auto) 0-4 /hpf (0-4) 02/17/22 Urine Hyaline Casts (Auto) 1-5 /lpf (0-5) 02/17/22 Urine Epithelial Cells (Auto) 10-20 /lpf (0-5) H 02/17/22 Urine Bacteria (Auto) 4+ (Negative) H 02/17/22 Coronavirus OC43 (PCR) Not Detected (NotDetected) 02/01/22 Coronavirus HKU1 (PCR) Not Detected (NotDetected) 02/01/22 Coronavirus 229E (PCR) Not Detected (NotDetected) 02/01/22 COVID-19 PCR Not Detected (NotDetected) 02/01/22 Coronavirus NL63 (PCR) Not Detected (NotDetected) 02/01/22 Blood Type B Positive 02/02/22 Antibody Screen NEGATIVE 02/02/22 Testing Electrocardiogram Date: 12/20/21 NSR, rate 69 bpm Echocardiogram Date: 04/28/20 Normal LV systolic function No pericardial effusion Possible PFO vs pulmonary AVM Normal LV wall motion No significant valvular pathology Other Testing Neck CTA 12/20/21 No significant stenosis, occlusion, or dissection identified within the carotid or vertebral arteries. Head CTA 12/20/21 Unremarkable CTA of the head. Abdomen pelvis CT 12/20/21 Endplate deformities seen throughout the spine consistent the patient's history of sickle cell disease. 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 This is likely chronic. Additional patchy areas of sclerosis within the pelvis and sacrum consistent with areas of avascular necrosis. This remains unchanged. Mild dependent changes seen within the left lung base. The heart is mildly enlarged. The liver, gallbladder, pancreas, adrenal glands, and kidneys are unremarkable. Normal caliber abdominal aorta. No retroperitoneal lymphadenopathy. Mild bladder wall thickening. The uterus and ovaries are unremarkable. Endometrium measures 1.3 cm in thickness. This is considered top normal for age. Trace pelvic free fluid. Moderate well-formed stool seen throughout the colon. No bowel wall thickening or obstruction. Normal appendix. The major mesenteric vessels appear patent. IMPRESSION: 1. Bladder wall thickening. This may represent a cystitis. Recommend correlation with urinalysis. 2. Avascular necrosis of the bilateral femoral heads with a progressive subchondral fracture left femoral head. This is likely chronic. 3. Trace pelvic free fluid. This is likely physiologic. 4. No bowel wall thickening or obstruction. 5. Normal appendix. 6. Additional findings as described above. COVID-19 Risk Screen Screening Information COVID-19 Screen Date: 03/12/22 Exposure 21 Days Family/Household +COVID Last 21 Days: No Exposure 10 Days Any COVID Exposure Last 10 Days: No Symptoms Last 10 Days Experienced COVID Sx Last 10 Days: No + COVID 0-90 Days COVID + in Last 0-90 Days: No
[~2022-03-27 06:02] MED LIST: ACETAMINOPHEN 500 MG TAB PO SCH; CeleBREX 200 MG CAP PO SCH; FAMOTIDINE 20 MG TAB PO SCH; GENTAMICIN CONSULT ACTIVE PRN; GENTAMICIN SULFATE 320 MG in DEXTROSE 5% 100 ML IV SCH; LR 15ML/HR IV SCH; LR 60ML/HR IV SCH; METOCLOPRAMIDE HCL 10 MG TABLET PO SCH; TRANEXAMIC ACID 1,000 MG **IV Pre-op IV SCH; ceFAZolin 2000MG 2,000 MG/15 ML SYR IV SCH
[2022-03-27] MEDS ORDERED: BUPIVACAINE 0.5 % 5 MG/1 ML PF 10ML VIAL ONE (06:21)
--- NOTE | 2022-03-27 06:58 | History & Physical Bridge Note ---
Date of Service March 27, 2022 History & Physical Bridge Note I have examined the patient, reviewed the History & Physical and in the interval since the performance of the History & Physical I have noted the following changes of clinical significance: no changes noted
[2022-03-27] MEDS ORDERED: MIDAZOLAM HCL 1 MG/ML 2ML VIAL ONE (07:44)
[2022-03-27] MEDS ORDERED: fentaNYL citrate 100 MCG/2 ML VIAL ONE (07:44)
[2022-03-27] MEDS ORDERED: MoRPHine SULFATE PF 1 MG/ML 10 ML AMP/VIAL ONE (07:47)
[2022-03-27] MEDS ORDERED: BUPIVACAINE/EPINEPHRINE 0.5% MPF 1:200,000 30 ML VIAL ONE (08:58)
[2022-03-27] MEDS ORDERED: HYDROmorphone INJ 0.5 MG/0.5 ML SYR IV PRN (09:12)
[2022-03-27] MEDS ORDERED: ePHEDrine sulfate 50 MG/ML AMP IV PRN (09:12)
[2022-03-27] MEDS ORDERED: LACTATED RINGER'S 500 ML IV PRN (09:12)
[2022-03-27] MEDS ORDERED: NALOXONE HCL 1 MG in SODIUM CHLORIDE 0.9% 1000ML 1,000 ML IV PRN (09:12)
[2022-03-27] MEDS ORDERED: ONDANSETRON INJ 2 MG/ML 2 ML VIAL IV PRN (09:12)
[2022-03-27] MEDS ORDERED: NALBUPHINE HCL INJ 10 MG/ML AMP IV PRN (09:12)
[2022-03-27] MEDS ORDERED: MoRPHine SULFATE PF 1 MG/ML 10 ML AMP/VIAL INT SPINAL ONE (09:12)
[2022-03-27] MEDS ORDERED: MoRPHine SULFATE 2 MG/ML CARP IV PRN (09:12)
[2022-03-27] MEDS ORDERED: NALOXONE HCL 0.4 MG/1 ML VIAL/CARP IV PRN (09:12)
[2022-03-27] MEDS ORDERED: diphenhydrAMINE 50 MG/ML VIAL IV PRN (09:12)
[2022-03-27] MEDS ORDERED: NALOXONE HCL 0.08 MG in SYRINGE 1.8 ML IV PRN (09:12)
[2022-03-27] MEDS ORDERED: SODIUM CHLORIDE 0.9% 1000ML 1,000 ML IV SCH (09:15)
[2022-03-27] MEDS ORDERED: DC INTRASPINAL MORPHINE SCH (09:15)
[2022-03-27] MEDS ORDERED: NO NARCOTICS OR SEDATIVES SCH (09:15)
[2022-03-27] MEDS ORDERED: KETAMINE 50 MG/5 ML SYRINGE ONE (09:28)
[2022-03-27] MEDS ORDERED: PHENYLEPHRINE HCL 10 MG/ML VIAL ONE (09:34)
[2022-03-27] MEDS ORDERED: LIDOCAINE 2% MPF LOCAL 5 ML VIAL INFIL ONE (09:34)
[2022-03-27] MEDS ORDERED: ONDANSETRON INJ 2 MG/ML 2 ML VIAL ONE (09:34)
[2022-03-27] MEDS ORDERED: PROPOFOL IV EMULSION 10 MG/ML 20 ML VIAL IV ONE (09:34)
--- NOTE | 2022-03-27 10:51 | Operative Report ---
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 Fluids 1000 cc Specimens Left femoral head sent for pathology Drains None Anesthesia Type Spinal MAC Complications none Disposition Accompanied Patient To Recovery: No Indications Patient is a 21-year-old black female who said a long history of intermittent sickle cell disease and sickle cell crises. Over the years she developed increased pain discomfort particular in the left hip with obvious AVN and collapse of the femoral head. She failed all conservative measures. She elected proceed with total hip arthroplasty. Description of Procedure Operative implants consist of: 1 Biomet G7 size 50 mm acetabular shell. 2. 6.5 cancellous acetabular screws 135 mm length 120 mm length. 3. Garland: Millimeter. 4. Highly cross-linked polyethylene liner with a 50 mm outer diameter and 32 mm inner diameter 5. DePuy Corail size 1035 degree short neck low offset femoral stem. 6. +5/32 mm ceramic articular ball. The patient was taken the operating, identified, placed on the operating table supine position with all contractors were appropriately padded. IV antibiotics were by anesthesia team. A spinal anesthetic and to implement holding area. Oneill catheter was placed in sterile fashion. The patient then placed in the right lateral decubitus position. An axillary roll was placed. A Stulberg hip positioner was used for positioning. Left hip and leg were then prepped and draped in usual sterile fashion. A posterolateral approach to the left hip was then performed to a curvilinear incision centered over the greater trochanter. Sharp dissection Through subcutaneous tissue down over the IT band and gluteal fascia. The IT band gluteal fascia were incised longitudinally in line with skin incision. Of note, her gluteus angelita muscle really extended distally into the IT band area. The piriformis and external rotators and posterior hip joint capsule was then released from the posterior aspect of the hip joint as a single layer taking great care to protect the sciatic nerve at all times. The hip was internally rotated and dislocated. A femoral neck osteotomy cut was made with a Final Cut about 7 mm above the lesser trochanter. Femoral head was removed and sent for pathology. The femur was retracted anteriorly. Attention drawn to the acetabulum. The acetabular labrum was excised and the pulmonary fat was excised. Sequential reaming the acetabulum was then performed beginning with a size 43 and progressing up to 49. I reamed a little bit with a 50 reamer and then placed a 50 mm cup in about 40 degrees lateral opening and 20 degrees of anteversion. It was fixed with two 6.5 cancellous acetabular screws. A trial liner was placed. Some small anterior osteophytes were removed. Attention drawn to the femur. The proximal femur was entered with cookie-cutter followed by canal finder. Then broached beginning with size 8 and progressed up to 10. We will get excellent fit with a 10. I then trialed the hip and the +5 articular ball provided full stability in full extension and external rotation and flexion to 90 degrees internal Tatian over 50 degrees. Soft tissue tension seemed appropriate leg lengths seem equal. We elect to place these implants. All trial implants were removed. An apex hole luminary was placed. Highly cross-linked polyethylene liner was placed. A size 10 femoral stem was impacted in position. This was a short neck/low offset stem. +5/32 mm ceramic articular ball was placed. Hip was located and once again found to be stable. Attention drawn to closing. The wound was irrigated aide out some pulsatile lavage solution. I did inject locally with 60 cc of half percent Marcaine with epinephrine. The posterior capsule and external rotators were then repaired through drill holes in the posterior trochanter as a single layer with #1 Tycron suture. The IT band gluteal fascia were then closed in 1 PDS suture running fashion for the subcutaneous tissues then closed in 2 layers the deep layer #1 Vicryl suture subcutaneous tissues with 2-0 Dexon suture in a buried interrupted fashion the skin was closed skin deny. Leg was then cleaned and dried and sterile dressing with Xeroform, 4 fourths, ABD pad, foam tape was applied. Patient then transferred to the recovery room in stable condition. Patient tolerated procedure well and there were no complications. Mohsen Onofre, my physician physician's assistant, was present for the entire procedure. His assistance was essential and required for appropriate patient positioning, prepping and draping, surgical exposure, performing the technical details of the operation, placement the implants, closure of the wound, and placement of the sterile bandage. I attest to the content of the Intraoperative Record and any orders documented therein. Any exceptions are noted below.
--- NOTE | 2022-03-27 12:13 | Anesthesiology Progress Note ---
Date of Service March 27, 2022 Anesthesia Post Procedure Vital Signs Vital Signs: Temp Pulse Pulse Resp BP Pulse Ox O2 Del Method 03/27/22 11:55 71 11 L 99/57 L 100 Room Air 03/27/22 11:45 72 11 L 100/60 100 Room Air 03/27/22 11:35 37.6 C H 78 12 100/58 L 100 Room Air 03/27/22 11:15 79 13 109/65 100 Oxymask 03/27/22 11:05 93 H 18 100/79 100 Oxymask 03/27/22 11:25 37.6 C H 74 13 106/62 100 Room Air 03/27/22 10:55 36.6 C 87 17 110/64 100 Oxymask 03/27/22 10:48 36.6 C 103 H 16 106/57 L 100 Oxymask 03/27/22 06:42 37.0 C 85 18 112/66 99 Room Air 03/27/22 06:42 Room Air O2 Flow Rate 03/27/22 11:55 03/27/22 11:45 03/27/22 11:35 0 03/27/22 11:15 2 03/27/22 11:05 3 03/27/22 11:25 0 03/27/22 10:55 4 03/27/22 10:48 5 03/27/22 06:42 03/27/22 06:42 Pain Intensity Left Hip: Pain Intensity: 0 Generalized: Pain Intensity: 5 Transfer of Care Handoff Completed per policy Notes Mental Status: alert / awake / arousable and participated in evaluation Patient Amnestic to Procedure: Yes Nausea / Vomiting: adequately controlled Pain: adequately controlled Airway Patency, RR, SpO2: stable & adequate BP & HR: stable & adequate Hydration State: stable & adequate Neuraxial Anesthesia: was administered and sensory block is resolving Anesthetic Complications: no major complications apparent and Pt Satisfied with anesthetic care
--- NOTE | 2022-03-27 12:29 | XRay Report ---
AP PELVIS, CROSSTABLE LATERAL LEFT HIP History: Left total hip arthroplasty. Degenerative arthritis. Postop. FINDINGS: The patient is status post a left total hip arthroplasty. The hardware is intact. No fractu re or dislocation. Skin deny are in place. IMPRESSION: Left total hip arthroplasty. No evidence for hardware complication. ACT 112: Negative or not required by law. Electronically signed by: Cortes Fletcher M.D. 03/27/2022 12:28 PM
[2022-03-27] MEDS ORDERED: bisacodyL 10 MG SUPP PR PRN (13:33)
[2022-03-27] MEDS ORDERED: NALOXONE NASAL SPRAY 4 MG ER HOMEPACK PRN (13:33)
[2022-03-27] MEDS ORDERED: MECLIZINE HCL 25 MG TAB PO PRN (13:33)
[2022-03-27] MEDS ORDERED: ALUMINUM/MAGNESIUM SUSP 30 ML UDC PO PRN (13:33)
[2022-03-27] MEDS ORDERED: MAGNESIUM HYDROXIDE SUSP 30 ML UDC PO PRN (13:33)
[2022-03-27] MEDS ORDERED: POLYETHYLENE (MIRALAX) 17 GM PACK PO PRN (13:33)
--- NOTE | 2022-03-27 14:10 | Hospitalist Consultation ---
Date of Consultation March 27, 2022 Assessment & Plan (1) Avascular necrosis of bone of hip: (2) Depression: (3) Generalized pain: (4) Borderline personality disorder: (5) GERD (gastroesophageal reflux disease): (6) Vitamin D deficiency: History of Present Illness Reason for Consultation: medical management Requesting Physician: Dr Castrejon Attending Physician: Jp Castrejon MD History of Present Illness 21yo female with PMHx significant for sickle cell disease, GERD, depression, avascular necrosis of the hip, chronic pain presented for elective LEFT total hip arthroplasty with Dr Castrejon this morning. Allergies Allergy/AdvReac Type Severity Reaction Status Date / Time adhesive Allergy Intermediate Blister Verified 03/27/22 06:30 Home Medications Medication Instructions Recorded Confirmed Type folic acid 1 mg tablet 2 mg PO HS 01/31/21 03/27/22 History hydroxyurea 500 mg capsule (Hydrea) 1,000 mg PO BID 01/31/21 03/27/22 History polyethylene glycol 3350 17 17 g PO DAILY PRN Constipation 08/13/21 03/27/22 History gram/dose oral powder meclizine 25 mg tablet 25 mg PO TID PRN Dizziness 12/20/21 03/27/22 History celecoxib 200 mg capsule (Celebrex) 200 mg PO DAILY PRN pain #30 caps 02/23/22 03/27/22 Rx fentanyl 12 mcg/hr transdermal 12 mcg transdermal Q3D #10 ea 02/23/22 03/27/22 Rx patch mirtazapine 15 mg tablet (Remeron) 15 mg PO HS #30 tabs 02/23/22 03/27/22 Rx morphine 15 mg immediate release 15 mg PO Q8H PRN pain #90 tabs 02/23/22 03/27/22 Rx tablet naloxone 4 mg/actuation nasal 4 mg intranasal UD PRN opiod 02/23/22 03/27/22 Rx spray (Narcan) overdose #2 ea Wheeled Walker #1 ea 03/04/22 03/04/22 Rx Lactobacillus 2 cap PO QAM 03/12/22 03/27/22 History acidophilus-Bifidobac.animalis 2.5 billion cell capsule (Daily Probiotic) acetaminophen 500 mg capsule 1,000 mg PO TID Pain 30 days #180 03/25/22 03/27/22 Rx caps aspirin 81 mg tablet,delayed 81 mg PO BID 45 days #90 tabs 03/25/22 03/27/22 Rx release (Shannon Low Dose Aspirin) cefadroxil 500 mg capsule 500 mg PO BID 7 days #14 caps 03/25/22 03/27/22 Rx ketorolac 10 mg tablet 10 mg PO Q6 Pain 5 days #20 tabs 03/25/22 03/27/22 Rx ondansetron HCl 4 mg tablet 4 mg PO Q6 PRN nausea #20 tabs 03/25/22 03/27/22 Rx hydromorphone 2 mg tablet 2 - 4 mg PO Q6 PRN pain 03/27/22 03/27/22 History (Dilaudid) magnesium 1 tab PO DAILY 03/27/22 03/27/22 History magnesium glycinate 100 mg tablet 800 mg PO BID 03/27/22 03/27/22 History norgestimate 0.25 mg-ethinyl 1 tab PO DAILY 03/27/22 03/27/22 History estradiol 35 mcg tablet (Sprintec (28)) ondansetron 4 mg disintegrating 4 mg PO TID PRN Nausea 03/27/22 03/07/22 History tablet Patient History Medical History Anxiety Avascular necrosis of bone of left hip Borderline personality disorder 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 no longer follows with neurology. reports last neuro appt > 1 year ago. Sickle cell anemia Sickle cell disease Surgical History No history of previous surgery Family History Mother Hypertension Father Ulcer Other Family history non-contributory No family history of adverse response to anesthesia Social History Smoking Status: Never smoker Tobacco Type: Cigarettes Second Hand Exposure: No; Do You Dip or Chew Tobacco: No; Hx Alcohol Use: Yes Alcohol type: wine and hard liquor Hx Substance Use: No Preferred Language: Mohawk Communication Ability: Effective Council On Aging Director Required: No Beliefs That Will Affect Care: None marital status: Single Current Living Situation: Other Current Living Situation Comment: [place] 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 current occupation: [employer] major Feels Safe at Home: Yes Safety Concerns: Feels Safe At This Time Assistive Devices: None Results & Data Results & Data ([facility]) Vital Signs (Past 12 Hours) Vital Signs Temp Pulse Pulse Resp BP Pulse Ox O2 Del Method 03/27/22 13:45 16 98 03/27/22 13:45 36.5 C 91 H 16 96/55 L 98 Room Air 03/27/22 13:10 14 99 03/27/22 13:10 36.6 C 84 14 95/58 L 99 Room Air 03/27/22 13:00 36.7 C 72 12 103/51 L 99 Room Air 03/27/22 12:45 75 12 93/48 L 99 Room Air 03/27/22 12:30 72 12 96/56 L 100 Room Air 03/27/22 11:55 71 11 L 99/57 L 100 Room Air 03/27/22 11:45 72 11 L 100/60 100 Room Air 03/27/22 11:35 37.6 C H 78 12 100/58 L 100 Room Air 03/27/22 11:15 79 13 109/65 100 Oxymask 03/27/22 11:05 93 H 18 100/79 100 Oxymask 03/27/22 11:25 37.6 C H 74 13 106/62 100 Room Air 03/27/22 10:55 36.6 C 87 17 110/64 100 Oxymask 03/27/22 10:48 36.6 C 103 H 16 106/57 L 100 Oxymask 03/27/22 06:42 37.0 C 85 18 112/66 99 Room Air 03/27/22 06:42 Room Air O2 Flow Rate 03/27/22 13:45 03/27/22 13:45 03/27/22 13:10 03/27/22 13:10 03/27/22 13:00 03/27/22 12:45 03/27/22 12:30 03/27/22 11:55 03/27/22 11:45 03/27/22 11:35 0 03/27/22 11:15 2 03/27/22 11:05 3 03/27/22 11:25 0 03/27/22 10:55 4 03/27/22 10:48 5 03/27/22 06:42 03/27/22 06:42 Laboratory Results 03/27/22 03/27/22 03/27/22 Range/Units Unknown 07:15 06:29 POC Ur Test NEG (NEG) SARS-CoV-2, RNA, NAAT NEGATIVE (NEGATIVE) Blood Type B Positive Antibody Screen NEGATIVE Crossmatch See Detail Diagnostic Findings Hip/Pelvis X-Ray 03/27/22 10:50 AP PELVIS, CROSSTABLE LATERAL LEFT HIP History: Left total hip arthroplasty. Degenerative arthritis. Postop. FINDINGS: The patient is status post a left total hip arthroplasty. The hardware is intact. No fracture or dislocation. Skin deny are in place. IMPRESSION: Left total hip arthroplasty. No evidence for hardware complication. ACT 112: Negative or not required by law. Electronically signed by: Cortes Fletcher M.D. 03/27/2022 12:28 PM PG Care Time/CCT Total # of Minutes Spent Total Time Spent with Patient: Total time spent is greater than 50% in coordination of care (as documented) at patient's floor/unit and/or counseling patient: Coding Diagnoses Avascular necrosis of bone of hip M87.059 Depression F32.A Generalized pain R52 Borderline personality disorder F60.3 GERD (gastroesophageal reflux disease) K21.9 Esophagitis presence: esophagitis presence not specified Vitamin D deficiency E55.9 (1) GERD (gastroesophageal reflux disease) Esophagitis presence: esophagitis presence not specified Qualified Code(s): K21.9 - Gastro-esophageal reflux disease without esophagitis
[2022-03-27] MEDS: KETOROLAC 30 MG/ML VIAL IV SCH ×2 (14:20→20:16)
[2022-03-27] MEDS: ACETAMINOPHEN 500 MG TAB PO SCH ×2 (14:20→21:39)
[2022-03-27] MEDS: SODIUM CHLORIDE 0.9% 1000ML 1,000 ML IV SCH (14:21)
--- NOTE | 2022-03-27 14:42 | Hospitalist Consultation ---
Date of Consultation March 27, 2022 Assessment & Plan (1) Avascular necrosis of bone of left hip: (2) Sickle cell anemia: (3) Chronic pain: (4) Borderline personality disorder: Plan 21 y/o F with h/o sickle cell ds and extensive h/o hospitalization for sickle cell crisis, h/o AVN of left hip now s/p left hip replacement s/p Left hip replacement for AVN - post op per surgery. aggressive pain control. Sickle cell ds - continue with aggressive pain control to prevent sickle cell crisis. Pain control till tomorrow am should be via duramorph followed by pain regimen listed below. Fentanyl patch 12mcg, hydromorphone IV 0.25mg IV q4 prn, Hydromorphone 2-4mgs Po q6 prn, IV morphine q2 prn NSS 100ml/hr Aggressive bowel regimen with pain control On hydroxyurea at home. Sleep disturbance BPD Mirtazapine Chronic pain and opiate dependence Control acute pain and resume home regimen once able to DONG Full code Med/surg History of Present Illness Reason for Consultation: Medical Mx Requesting Physician: Dr. Jp Castrejon Attending Physician: Jp Castrejon MD History of Present Illness 21 y/o F with extensive h/o sickle cell crisis underwent left hip replacement for AVN left hip. 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 Over the years her pain continued to get worse especially in the left hip with obvious AVN and collapse of the femoral head. She failed all conservative measures. Post op she is doing well. Hip pain controlled with duramorph. No chest pain, shortness of breath. Allergies Allergy/AdvReac Type Severity Reaction Status Date / Time adhesive Allergy Intermediate Blister Verified 03/27/22 06:30 Home Medications Medication Instructions Recorded Confirmed Type folic acid 1 mg tablet 2 mg PO HS 01/31/21 03/27/22 History hydroxyurea 500 mg capsule (Hydrea) 1,000 mg PO BID 01/31/21 03/27/22 History polyethylene glycol 3350 17 17 g PO DAILY PRN Constipation 08/13/21 03/27/22 History gram/dose oral powder meclizine 25 mg tablet 25 mg PO TID PRN Dizziness 12/20/21 03/27/22 History celecoxib 200 mg capsule (Celebrex) 200 mg PO DAILY PRN pain #30 caps 02/23/22 03/27/22 Rx fentanyl 12 mcg/hr transdermal 12 mcg transdermal Q3D #10 ea 02/23/22 03/27/22 Rx patch mirtazapine 15 mg tablet (Remeron) 15 mg PO HS #30 tabs 02/23/22 03/27/22 Rx morphine 15 mg immediate release 15 mg PO Q8H PRN pain #90 tabs 02/23/22 03/27/22 Rx tablet naloxone 4 mg/actuation nasal 4 mg intranasal UD PRN opiod 02/23/22 03/27/22 Rx spray (Narcan) overdose #2 ea Wheeled Walker #1 ea 03/04/22 03/04/22 Rx Lactobacillus 2 cap PO QAM 03/12/22 03/27/22 History acidophilus-Bifidobac.animalis 2.5 billion cell capsule (Daily Probiotic) acetaminophen 500 mg capsule 1,000 mg PO TID Pain 30 days #180 03/25/22 03/27/22 Rx caps aspirin 81 mg tablet,delayed 81 mg PO BID 45 days #90 tabs 03/25/22 03/27/22 Rx release (Shannon Low Dose Aspirin) cefadroxil 500 mg capsule 500 mg PO BID 7 days #14 caps 03/25/22 03/27/22 Rx ketorolac 10 mg tablet 10 mg PO Q6 Pain 5 days #20 tabs 03/25/22 03/27/22 Rx ondansetron HCl 4 mg tablet 4 mg PO Q6 PRN nausea #20 tabs 03/25/22 03/27/22 Rx hydromorphone 2 mg tablet 2 - 4 mg PO Q6 PRN pain 03/27/22 03/27/22 History (Dilaudid) magnesium 1 tab PO DAILY 03/27/22 03/27/22 History magnesium glycinate 100 mg tablet 800 mg PO BID 03/27/22 03/27/22 History norgestimate 0.25 mg-ethinyl 1 tab PO DAILY 03/27/22 03/27/22 History estradiol 35 mcg tablet (Sprintec (28)) ondansetron 4 mg disintegrating 4 mg PO TID PRN Nausea 03/27/22 03/07/22 History tablet Patient History Medical History Anxiety Avascular necrosis of bone of left hip Borderline personality disorder 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 no longer follows with neurology. reports last neuro appt > 1 year ago. Sickle cell anemia Sickle cell disease Surgical History No history of previous surgery Family History Mother Hypertension Father Ulcer Other Family history non-contributory No family history of adverse response to anesthesia Social History Smoking Status: Never smoker Tobacco Type: Cigarettes Second Hand Exposure: No; Do You Dip or Chew Tobacco: No; Hx Alcohol Use: Yes Alcohol type: wine and hard liquor Hx Substance Use: No Preferred Language: Sami Communication Ability: Effective Drag Out Worker Required: No Beliefs That Will Affect Care: None marital status: Single Current Living Situation: Other Current Living Situation Comment: [place] 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 current occupation: [employer] major Feels Safe at Home: Yes Safety Concerns: Feels Safe At This Time Assistive Devices: None Review of Systems Review of Systems: Neg for 10 systems except what listed in HPI Physical Exam Constitutional: WD/WN, vitals as above Respiratory: normal respiratory effort, lungs clear to auscultation Cardiovascular: RRR, no murmur, no edema Gastrointestinal (Abdomen): normal bowel sounds, soft, nontender, no hepatosplenomegaly Musculoskeletal: Left hip dressing present. cap refill < 2 sec Skin: no rashes, warm and dry Psychiatric: A+Ox3, euthymic affect Results & Data Results & Data ([facility]) Vital Signs (Past 12 Hours) Vital Signs Temp Pulse Pulse Resp BP Pulse Ox O2 Del Method 03/27/22 14:17 14 100 03/27/22 14:17 85 14 93/54 L 100 Room Air 03/27/22 13:45 16 98 03/27/22 13:45 36.5 C 91 H 16 96/55 L 98 Room Air 03/27/22 13:10 14 99 03/27/22 13:10 36.6 C 84 14 95/58 L 99 Room Air 03/27/22 13:00 36.7 C 72 12 103/51 L 99 Room Air 03/27/22 12:45 75 12 93/48 L 99 Room Air 03/27/22 12:30 72 12 96/56 L 100 Room Air 03/27/22 11:55 71 11 L 99/57 L 100 Room Air 03/27/22 11:45 72 11 L 100/60 100 Room Air 03/27/22 11:35 37.6 C H 78 12 100/58 L 100 Room Air 03/27/22 11:15 79 13 109/65 100 Oxymask 03/27/22 11:05 93 H 18 100/79 100 Oxymask 03/27/22 11:25 37.6 C H 74 13 106/62 100 Room Air 03/27/22 10:55 36.6 C 87 17 110/64 100 Oxymask 03/27/22 10:48 36.6 C 103 H 16 106/57 L 100 Oxymask 03/27/22 06:42 37.0 C 85 18 112/66 99 Room Air 03/27/22 06:42 Room Air O2 Flow Rate 03/27/22 14:17 03/27/22 14:17 03/27/22 13:45 03/27/22 13:45 03/27/22 13:10 03/27/22 13:10 03/27/22 13:00 03/27/22 12:45 03/27/22 12:30 03/27/22 11:55 03/27/22 11:45 03/27/22 11:35 0 03/27/22 11:15 2 03/27/22 11:05 3 03/27/22 11:25 0 03/27/22 10:55 4 03/27/22 10:48 5 03/27/22 06:42 03/27/22 06:42 (1) Sickle cell anemia Sickle-cell associated disorders: with unspecified crisis Qualified Code(s): D57.00 - Hb-SS disease with crisis, unspecified
[2022-03-27] MEDS ORDERED: TRANEXAMIC ACID / 0.7% NACL 1,000 MG/100 ML BAG IV SCH (16:45)
[2022-03-27] MEDS ORDERED: GENTAMICIN CONSULT ACTIVE PRN (16:57)
[2022-03-27] MEDS: ASCORBIC ACID 500 MG TAB PO SCH (17:01)
[2022-03-27] MEDS: ceFAZolin 1000MG 1,000 MG/7.5 ML SYR IV SCH (17:02)
--- NOTE | 2022-03-27 17:18 | Progress Notes ---
DATE OF SERVICE: 03/27/2022 SUBJECTIVE: This is a 21-year-old black female with sickle cell disease, now postop from a left hip replacement done for AVN. She is doing pretty well. A little bit of soreness and discomfort, but no t bad. No other complaints. No chest pain or shortness of breath. Just feels tired. OBJECTIVE: VITAL SIGNS: Temperature is 36.6. Vital signs are stable. PHYSICAL EXAMINATION: GENERAL: Shows a pleasant 21-year-old black female. She is lying in bed, looks quite comfortable. She is talking to her mother. LUNGS: Clear to auscultation. HEART: Regular rate and rhythm. ABDOMEN: Soft, nontender, nondistended. EXTREMITIES: Grossly neurovascularly intact except as follows: Examination of the left leg reveals the leg to be well aligned. Leg lengths were equal. Dressing is clean, dry and intact. Thigh is so ft and supple. She is neurologically intact. X-RAYS: X-rays of the left hip from recovery room are reviewed. It shows left uncemented hip replac ement. Components looked to be in good position. No signs of problems. ASSESSMENT: A 21-year-old female with a pretty extensive sickle cell disease with secondary avascula r necrosis, postoperative from a left hip replacement done for avascular necrosis with collapse. Ort hopedically, she is doing well. Pain seems to be pretty well controlled. She has been on chronic pa in medications, which would mimic postoperative pain control difficult. PLAN: 1. DVT prophylaxis includes thigh-high TEDs, SCDs, and aspirin twice a day. 2. PT/OT. She can weight bear as tolerated in the left hip. She does need to obey hip precautions. 3. Pain control, doing okay with current pain regimen. Currently, the plan will be to leave her on the fentanyl patch and then use supplemental Dilaudid as needed. The pain service has been consulted to help and assist in this manner. 4. Medical management as per the medicine service. 5. Antibiotics. We have placed her on 24 hours of postoperative antibiotics. We will cover gram po sitive as well as gram negative due to her sickle cell disease. 6. Disposition: Plan to discharge to home likely with home health once adequately recovered and sta ble. Job ID: [id number]
[2022-03-27] MEDS: SENNA 8.6 MG TAB PO SCH (20:15)
[2022-03-27] MEDS: MAGNESIUM OXIDE 400 MG TAB PO SCH (20:16)
[2022-03-27] MEDS: DOCUSATE SODIUM 100 MG CAP PO SCH (20:17)
[2022-03-27] MEDS: ASPIRIN 81 MG ECTAB PO SCH (20:17)
[2022-03-27] MEDS: HYDROXYUREA 500 MG CAP PO SCH (20:17)
[2022-03-27] MEDS: FOLIC ACID 1 MG TAB PO SCH (20:18)
[2022-03-28] MEDS: ceFAZolin 1000MG 1,000 MG/7.5 ML SYR IV SCH (00:31)
[2022-03-28] MEDS: SODIUM CHLORIDE 0.9% 1000ML 1,000 ML IV SCH (00:31)
[2022-03-28] MEDS: KETOROLAC 30 MG/ML VIAL IV SCH ×2 (02:00→07:48)
[2022-03-28] MEDS: ACETAMINOPHEN 500 MG TAB PO SCH ×3 (05:47→23:09)
--- NOTE | 2022-03-28 07:54 | Progress Notes ---
DATE OF SERVICE: 03/28/2022. SUBJECTIVE: A 21-year-old female with underlying sickle cell disease, now postoperative day 1 from a left total hip replacement. She is pretty miserable this morning. She did have a Duramorph spinal, which limits her narcotics. She is complaining of a lot of back pain and some hip pain. No chest p ain or shortness of breath. OBJECTIVE: VITAL SIGNS: Temperature 36.3. Vital signs are stable. She is not hypertensive, and not tachycardi c. GENERAL: Shows a young black female who is lying in bed. She is kind of teary eyed. EXTREMITIES: Examination of the left hip reveals the dressing to be clean, dry and intact. Leg roberto ths were equal. She can dorsiflex and plantarflex her foot appropriately. She is neurologically int act. LABORATORY DATA: Labs are pending. ASSESSMENT: A 21-year-old female with underlying sickle cell disease postop day 1 from a left hip re placement, doing okay, but having quite a bit of pain. She had this Duramorph spinal and limits her narcotics, which is a bit of a problem now as she has been on chronic narcotics. PLAN: 1. DVT prophylaxis includes thigh-high TEDs, SCDs, and aspirin twice a day. 2. PT/OT. She can fully weightbear as tolerated in the left hip. Does need to obey hip precautions . 3. Pain control, as she comes off these morphine restrictions, we will get her back on her fentanyl patch. She will use p.o. Dilaudid supplement and hopefully this will help. The pain services have ani skinner consulted and the hospitalist are following her as well. 4. Sickle cell disease. Hospitalist is following. We need to keep her well hydrated, well oxygenat ed and try and manage her pain. 5. Disposition: She is planning to be discharged to home with some home health once stable. We will have to see how things go today. We need to get her pain under better control. Job ID: [id number]
[2022-03-28] MEDS ORDERED: GENTAMICIN SULFATE IV ONE (08:00)
[2022-03-28] MEDS ORDERED: GENTAMICIN SULFATE IV SCH (08:00)
[2022-03-28] MEDS ORDERED: DEXTROSE 5% IV SCH (08:00)
[2022-03-28] MEDS ORDERED: dexAMETHasone 10 MG in SYRINGE 0 ML IV SCH (08:00)
[2022-03-28] MEDS ORDERED: DEXTROSE 5% IV ONE (08:00)
[2022-03-28] MEDS: fentaNYL 12 MCG/HR TDSY TD SCH (08:28)
[2022-03-28] MEDS ORDERED: NON-FORMULARY MEDICATION (Magnesium Tablet) PO SCH (09:00)
[2022-03-28] MEDS ORDERED: METOCLOPRAMIDE HCL INJ 5 MG/ML 2 ML VIAL IV PRN (09:15)
[2022-03-28] MEDS ORDERED: ONDANSETRON INJ 2 MG/ML 2 ML VIAL IV PRN (09:15)
[2022-03-28] MEDS ORDERED: NALOXONE HCL 0.4 MG/1 ML VIAL/CARP IV PRN (09:15)
[2022-03-28] MEDS ORDERED: ONDANSETRON 4 MG OD TAB PO PRN (09:15)
--- NOTE | 2022-03-28 09:16 | Pain Management Consultation ---
Date of Consultation March 28, 2022 Assessment & Plan (1) Avascular necrosis of bone of left hip: (2) History of total left hip arthroplasty: Plan 1. Continue Fentanyl patch at 12 mcg/hr 2. Continue Toradol 30mg IV x 6 hours 3. I did let the patient know that she does have oral Hydromorphone ordered 2-4 mg x 6 hours ordered. She must ask for the medication. She understands. 4. I have emphasized the importance for the patient to get out of bed and start ambulating. She is understanding. 5. If oral Hydromorphone is not effective, consider switching to MS IR 15mg x 6 hours as she has previously tolerated and found effective. Thank you for the consultation. Please contact with any questions or concerns. History of Present Illness Reason for Consultation: Left hip pain Attending Physician: Jp Castrejon MD History of Present Illness This is a 21-year-old female with a significant history of sickle cell disease that had a left hip replacement by Dr. Castrejon yesterday due to avascular necrosis. Patient is reporting 10 out of 10 pain and has not yet gotten out of bed to walk around. She describes a deep aching in the left hip that is sharp with any movement. She is currently on fentanyl patch 12 mcg/hour and Toradol 30 mg every 6 hours. She does have hydromorphone 2 to 4 mg p.o. every 6 hours ordered which she has not yet taken. No drowsiness, confusion, or constipation. Case discussed with Dr. Monica Murguia Allergies Allergy/AdvReac Type Severity Reaction Status Date / Time adhesive Allergy Intermediate Blister Verified 03/27/22 06:30 Home Medications Medication Instructions Recorded Confirmed Type folic acid 1 mg tablet 2 mg PO HS 01/31/21 03/27/22 History hydroxyurea 500 mg capsule (Hydrea) 1,000 mg PO BID 01/31/21 03/27/22 History polyethylene glycol 3350 17 17 g PO DAILY PRN Constipation 08/13/21 03/27/22 History gram/dose oral powder meclizine 25 mg tablet 25 mg PO TID PRN Dizziness 12/20/21 03/27/22 History celecoxib 200 mg capsule (Celebrex) 200 mg PO DAILY PRN pain #30 caps 02/23/22 03/27/22 Rx fentanyl 12 mcg/hr transdermal 12 mcg transdermal Q3D #10 ea 02/23/22 03/27/22 Rx patch mirtazapine 15 mg tablet (Remeron) 15 mg PO HS #30 tabs 02/23/22 03/27/22 Rx morphine 15 mg immediate release 15 mg PO Q8H PRN pain #90 tabs 02/23/22 03/27/22 Rx tablet naloxone 4 mg/actuation nasal 4 mg intranasal UD PRN opiod 02/23/22 03/27/22 Rx spray (Narcan) overdose #2 ea Wheeled Walker #1 ea 03/04/22 03/04/22 Rx Lactobacillus 2 cap PO QAM 03/12/22 03/27/22 History acidophilus-Bifidobac.animalis 2.5 billion cell capsule (Daily Probiotic) acetaminophen 500 mg capsule 1,000 mg PO TID Pain 30 days #180 03/25/22 03/27/22 Rx caps aspirin 81 mg tablet,delayed 81 mg PO BID 45 days #90 tabs 03/25/22 03/27/22 Rx release (Shannon Low Dose Aspirin) cefadroxil 500 mg capsule 500 mg PO BID 7 days #14 caps 03/25/22 03/27/22 Rx ketorolac 10 mg tablet 10 mg PO Q6 Pain 5 days #20 tabs 03/25/22 03/27/22 Rx ondansetron HCl 4 mg tablet 4 mg PO Q6 PRN nausea #20 tabs 03/25/22 03/27/22 Rx hydromorphone 2 mg tablet 2 - 4 mg PO Q6 PRN pain 03/27/22 03/27/22 History (Dilaudid) magnesium 1 tab PO DAILY 03/27/22 03/27/22 History magnesium glycinate 100 mg tablet 800 mg PO BID 03/27/22 03/27/22 History norgestimate 0.25 mg-ethinyl 1 tab PO DAILY 03/27/22 03/27/22 History estradiol 35 mcg tablet (Sprintec (28)) ondansetron 4 mg disintegrating 4 mg PO TID PRN Nausea 03/27/22 03/07/22 History tablet Patient History Medical History Anxiety Avascular necrosis of bone of left hip Borderline personality disorder Cardiac murmur no residential support worker. echo 2021 (scanned in system) Chronic pain Depression GERD (gastroesophageal reflux disease) variable breakthrough symptoms per pt History of blood transfusion with most recent hospitalization per pt History of sickle cell crisis History of suicidal ideation denies any current SI Seizures last seizure 1 mo ago per pt. no longer follows with neurology. reports last neuro appt > 1 year ago. Sickle cell anemia Sickle cell disease Surgical History (Updated 03/28/22 @ 09:13 by Kathleen Sierra PA-C) History of total left hip arthroplasty Family History Mother Hypertension Father Ulcer Other Family history non-contributory No family history of adverse response to anesthesia Social History Smoking Status: Never smoker Tobacco Type: Cigarettes Second Hand Exposure: No; Do You Dip or Chew Tobacco: No; Hx Alcohol Use: Yes Alcohol type: wine and hard liquor Hx Substance Use: No Preferred Language: Macedonian Communication Ability: Effective Director Cloud Transformation Required: No Beliefs That Will Affect Care: None marital status: Single Current Living Situation: Other Current Living Situation Comment: [place] 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 current occupation: [employer] major Feels Safe at Home: Yes Safety Concerns: Feels Safe At This Time Assistive Devices: None Physical Exam Physical Exam: GENERAL: This is a 21 year old female that is laying supine and tearful. HEAD/FACE: Normocephalic and atraumatic. EYES: No drainage or conjunctival injection. ENT: Nose without bleeding or discharge. Oral mucosa moist. NECK: Full ROM without apparent pain. No swelling or masses noted. RESPIRATORY: Patient with unlabored breathing. No signs of respiratory distress. CHEST/AXILLA: Chest movement symmetrical. No deformities noted. SKIN: [place], warm and dry. No rash noted. MS/EXTREMITY: No swelling, no deformities. Left hip not inspected. NEURO: Alert and appears oriented. Speech is fluent. Cranial Nerves are grossly intact. PSYCH: Alert, pleasant, tearful.
[2022-03-28] MEDS: HYDROmorphone HCL 2 MG TAB PO PRN ×3 (09:23→20:56)
[2022-03-28] MEDS: ADVANCED PROBIOTIC 1250 MG CAPSULE PO SCH (09:24)
[2022-03-28] MEDS: NORGESTIMATE/ETHINYL ESTRAD 0.25/0.035MG DSPK PO SCH (09:24)
[2022-03-28] MEDS: MAGNESIUM OXIDE 400 MG TAB PO SCH ×2 (09:25→20:50)
[2022-03-28] MEDS: DOCUSATE SODIUM 100 MG CAP PO SCH ×2 (09:25→20:48)
[2022-03-28] MEDS: ASCORBIC ACID 500 MG TAB PO SCH ×2 (09:25→15:52)
[2022-03-28] MEDS: MULTIVITAMIN TAB PO SCH (09:25)
[2022-03-28] MEDS: ASPIRIN 81 MG ECTAB PO SCH ×2 (09:25→20:47)
[2022-03-28] MEDS: HYDROXYUREA 500 MG CAP PO SCH ×2 (09:25→20:49)
[2022-03-28] MEDS ORDERED: KETOROLAC TROMETHAMINE 15 MG/ML VIAL IV SCH (10:00)
[2022-03-28 12:17] LABS: Anion Gap 5 (3-11); Calcium 8.9 mg/dl (8.5-10.1); Carbon Dioxide 21 mmol/L (21-32); Chloride 109 mmol/L (98-107); Potassium 4.1 mmol/L (3.5-5.1); Sodium 135 mmol/L (136-145)
[2022-03-28 12:18] LABS: Hematocrit (blood only) 22.1 % (37.0-47.0); Hemoglobin 8.3 g/dl (12.0-16.0); Mean Corpuscular Hemoglobin 41.5 pg (25.0-34.0); Mean Corpuscular Hgb Conc 37.6 g/dL (32.0-36.0); Mean Corpuscular Volume 110.5 fL (80.0-100.0); Nucleated RBC # (auto) 0.08 K/uL (0-0.12); Nucleated RBC % (auto) 1.4 %; Platelet Count 256 K/uL (130-400); RDW Coefficient of Variation 18.5 % (11.5-14.5); RDW Standard Deviation 73.8 fL (36.4-46.3); White Blood Count 5.62 K/ul (4.8-10.8)
[2022-03-28 12:23] LABS: BUN Creatinine Ratio 12.2 (10-20); Blood Urea Nitrogen 6 mg/dl (6-23); Creatinine Clr Calc Pharmacy 173.6 ml/min; Est GFR (African American) > 150.0 ml/min; Est GFR (Non-African American) 137.3 ml/min; Glucose 137 mg/dl (70-99(Fasting))
[2022-03-28] MEDS: diphenhydrAMINE Capsule 25 MG CAP PO PRN ×2 (12:40→22:15)
[2022-03-28 12:48] LABS: Immature Granulocytes # (auto) 0.01 K/uL (0.01-0.20); Immature Granulocytes % (auto) 0.2 %; Lymphocytes # (auto) 0.33 K/uL (1.2-3.4); Lymphocytes % (auto) 5.9 %; Monocytes # (auto) 0.06 K/uL (0.11-0.59); Monocytes % (auto) 1.1 %; Neutrophils # (auto) 5.22 K/uL (1.40-6.50); Neutrophils % (auto) 92.8 %; Target Cells 1+
[2022-03-28] MEDS: LIDOCAINE 5% 1 PATCH TD SCH (13:12)
--- NOTE | 2022-03-28 13:36 | XRay Report ---
XR chest 1V portable HISTORY: 21 years-old Female chest pain/ sickle cell acute chest pain COMPARISON: 02/01/2022 TECHNIQUE: AP view of the chest FINDINGS: Cardiac mediastinal and hilar silhouettes are within normal limits. No pneumothorax, pleural effusion , airspace consolidation or pulmonary edema. The bones appear grossly intact. H shaped vertebral bodi es redemonstrated. IMPRESSION: 1. No acute process of the chest. 2. Abnormal morphology of the thoracic vertebral segments compatible with the patient's clinical diag nosis of sickle cell disease. ACT 112: Negative or not required by law. The above report was generated using voice recognition software. It may contain grammatical, syntax o r spelling errors. Electronically signed by: Tre Jennings M.D. 03/28/2022 1:35 PM
[2022-03-28] MEDS ORDERED: HYDROmorphone INJ 2 MG/ML SYR/VIAL IV ONE (13:45)
[2022-03-28] MEDS: KETOROLAC TROMETHAMINE 15 MG/ML VIAL IV SCH ×2 (13:52→20:58)
[2022-03-28] MEDS: CHECK fentaNYL PATCH PLACEMENT SCH (15:38)
[2022-03-28] MEDS ORDERED: ALUMINUM/MAGNESIUM/SIMETH (MAALOX MAX) 30 ML UDC PO PRN (16:41)
--- NOTE | 2022-03-28 17:43 | Hospitalist Progress Note ---
Date of Service March 28, 2022 Assessment & Plan (1) History of total left hip arthroplasty: Plan: 21 y/o F with h/o sickle cell ds and extensive h/o hospitalization for sickle cell crisis, h/o AVN of left hip now s/p left hip replacement. s/p Left hip replacement for AVN - -post op per ortho surgery. -aggressive pain control -PT/OT in -Ambulation as tolerated Sickle Cell Anemia -continue with aggressive pain control to prevent sickle cell crisis. -Duramorph completed, pain regimen as below: -Fentanyl patch 12mcg q24h, hydromorphone IV 0.25mg IV q4 prn, Hydromorphone 2-4mgs Po q6 prn, IV morphine q2h prn -NSS 100ml/hr to help prevent sickling -Aggressive bowel regimen with pain control -Continue home hydroxyurea Sleep disturbance BPD -Mirtazapine qhs Chronic pain and opiate dependence -Control acute pain and resume home regimen once able to -Narcan for bradypnea/respiratory depression Hospital medicine will continue to follow. Thank you for allowing us to participate in this consultation. DVT prophylaxis: SCDs, other Recs per Ortho CODE STATUS: Full code Disposition: Med/surg (2) Avascular necrosis of bone of hip: (3) Chronic pain: (4) Borderline personality disorder: (5) Avascular necrosis of bone of left hip: Admission and Anticipated Discharge Date Admission Date: March 27, 2022 Supervising Physician Co-Signing Physician Notes Resident Physician Supervision Note: I independently interviewed and examined the patient and verified the amaro history and physical, reviewed labs and image studies and agree with resident findings and care plan. Subjective Patient seen at bedside this morning. No acute events reported overnight. Patient reports generalized pain especially in her hip and lower back. At the time of my interview, she was not able to have any other opioids given that she had the epidural yesterday. Was given Toradol which showed mild improvement in pain. Otherwise eating and drinking without difficulty. No other complaints at this time. Review of Systems Review of Systems: All systems reviewed & are unremarkable except as noted in HPI & below Physical Exam Constitutional: WD/WN, vitals as above cooperative Eyes: + anicteric sclerae Neck: normal visual inspection Respiratory: normal respiratory effort, lungs clear to auscultation Cardiovascular: RRR, no murmur, no edema Gastrointestinal (Abdomen): Percussion/Palpation: abdomen soft; abdomen nontender Musculoskeletal: Head/Neck/Chest: normocephalic and head atraumatic Extremities: + limited ROM of extremities Skin: no rashes, warm and dry Neurologic: moves all extremities Psychiatric: Orientation: alert and oriented x 3 Affect: + flat affect Results & Data Results & Data ([facility]) Vital Signs (Past 12 Hours) Vital Signs Temp Pulse Pulse Resp BP Pulse Ox O2 Del Method 03/28/22 15:23 36.6 C 99 H 18 107/66 96 Room Air 03/28/22 11:06 36.6 C 87 18 112/70 99 Room Air 03/28/22 07:21 37.4 C 78 20 103/69 100 Room Air
[2022-03-28] MEDS: FAMOTIDINE 20 MG TAB PO SCH (20:48)
[2022-03-28] MEDS: FOLIC ACID 1 MG TAB PO SCH (20:49)
[2022-03-28] MEDS: MIRTAZAPINE TAB 15 MG TAB PO SCH (20:51)
[2022-03-28] MEDS: SENNA 8.6 MG TAB PO SCH (20:51)
[2022-03-28] MEDS ORDERED: HYDROmorphone INJ 1 MG/ML SYRINGE ONE (21:15)
[2022-03-28] MEDS ORDERED: SODIUM CHLORIDE 0.45 % 1,000 ML IV SCH (21:30)
[2022-03-28 22:09] LABS: Basophils # (auto) 0.01 K/uL (0-0.2); Basophils % (auto) 0.1 %; Hemoglobin 8.3 g/dl (12.0-16.0); Immature Granulocytes # (auto) 0.02 K/uL (0.01-0.20); Immature Granulocytes % (auto) 0.3 %; Lymphocytes % (auto) 18.3 %; Mean Corpuscular Hemoglobin 41.9 pg (25.0-34.0); Mean Corpuscular Hgb Conc 37.7 g/dL (32.0-36.0); Mean Corpuscular Volume 111.1 fL (80.0-100.0); Mean Platelet Volume 9.8 fL (9.4-12.4); Monocytes # (auto) 0.24 K/uL (0.11-0.59); Monocytes % (auto) 3.4 %; Neutrophils # (auto) 5.52 K/uL (1.40-6.50); Neutrophils % (auto) 77.9 %; Nucleated RBC # (auto) 0.08 K/uL (0-0.12); Nucleated RBC % (auto) 1.1 %; Platelet Count 257 K/uL (130-400); RDW Coefficient of Variation 18.6 % (11.5-14.5); RDW Standard Deviation 75.2 fL (36.4-46.3); Red Blood Count 1.98 M/uL (4.20-5.40); White Blood Count 7.09 K/ul (4.8-10.8)
[2022-03-28 22:22] LABS: Alanine Aminotransferase 29 U/L (7-52); Albumin Level 3.9 gm/dl (3.4-5.0); Alkaline Phosphatase 49 U/L (34-104); Anion Gap 8 (3-11); Aspartate Aminotransferase 46 U/L (13-39); BUN Creatinine Ratio 12.2 (10-20); Bilirubin,Total 1.1 mg/dl (0.2-1.0); Blood Urea Nitrogen 6 mg/dl (6-23); Calcium 9.3 mg/dl (8.5-10.1); Carbon Dioxide 21 mmol/L (21-32); Chloride 106 mmol/L (98-107); Creatinine Clr Calc Pharmacy 173.6 ml/min; Est GFR (African American) > 150.0 ml/min; Est GFR (Non-African American) 137.3 ml/min; Glucose 149 mg/dl (70-99(Fasting)); Lipase 25 U/L (11-82); Potassium 3.5 mmol/L (3.5-5.1); Sodium 135 mmol/L (136-145); Total Protein 7.9 gm/dl (6.0-8.3)
[2022-03-28 22:39] LABS: INR 1.1 (0.9-1.1); Macrocytosis Present; Pappenheimer Bodies 1+; Polychromasia 1+; Prothrombin Time 11.4 Seconds (9.0-12.0); Target Cells 1+
[2022-03-28 22:51] LABS: Reticulocyte % 6.4 % (0.5-2.0); Reticulocytes # 0.13 10^6/uL (0.02-0.10)
[2022-03-28] MEDS ORDERED: HYDROmorphone HCL 2 MG TAB PO STA (23:14)
[2022-03-28] MEDS: HYDROmorphone INJ 0.5 MG/0.5 ML SYR IV PRN (23:22)
[2022-03-29] MEDS: CHECK fentaNYL PATCH PLACEMENT SCH ×4 (00:30→23:40)
[2022-03-29] MEDS: KETOROLAC TROMETHAMINE 15 MG/ML VIAL IV SCH ×2 (01:50→08:38)
[2022-03-29] MEDS: HYDROmorphone INJ 0.5 MG/0.5 ML SYR IV PRN ×9 (01:51→23:52)
[2022-03-29] MEDS ORDERED: NALOXONE HCL 0.4 MG/1 ML VIAL/CARP IV STA (02:18)
[2022-03-29] MEDS: HYDROmorphone HCL 2 MG TAB PO PRN ×3 (05:03→22:57)
[2022-03-29] MEDS: ACETAMINOPHEN 500 MG TAB PO SCH ×3 (05:05→21:18)
--- NOTE | 2022-03-29 08:04 | XRay Report ---
SINGLE VIEW CHEST CLINICAL HISTORY: Atypical chest pain FINDINGS: An AP, portable, upright chest radiograph is compared to study performed earlier the same d ay 03/28/2022. The cardiomediastinal silhouette is unremarkable. The lungs and pleural spaces are clear . No pneumothorax is seen. The bony thorax is grossly intact. Sclerotic change in the right humeral h ead suggests avascular necrosis. IMPRESSION: No acute cardiopulmonary abnormality. No change from today's earlier examination. ACT 112: Negative or not required by law. Electronically signed by: Richard Mcmahon M.D. 03/29/2022 8:02 AM
--- NOTE | 2022-03-29 08:31 | Progress Notes ---
SUBJECTIVE: A 21-year-old female, postoperative day 2 from a left uncemented total hip replacement. She looks a lot better this morning. Looks like more comfortable. I actually had to wake her when I went in her room this morning. OBJECTIVE: VITAL SIGNS: Temperature is 37.0. Vital signs are stable. GENERAL: Shows a pleasant 21-year-old female. I had to wake her this morning. EXTREMITIES: Examination of the left hip reveals the leg lengths to be equal. Dressing is clean, dr y and intact. Thigh is soft and supple. She is neurologically intact. LABORATORY DATA: Hemoglobin from yesterday was 8.3. Hematocrit 22.0. Electrolytes are stable. ASSESSMENT: A 21-year-old female with sickle cell disease, postop day 2 from a left total hip replac ement done for AVN with collapse. She is doing much better this morning. Pain seems to be under bet ter control. Hip is located. She is neurologically intact. PLAN: 1. DVT prophylaxis includes thigh-high TEDs, SCDs, and aspirin twice a day. 2. PT/OT. She can weight bear as tolerated in the left lower extremity. 3. Pain control, seems to be doing much better on current pain regimen. We will stick with the fent anyl patch and the p.o. Dilaudid. 4. Disposition: She is orthopedically okay for discharge if medically stable. We will see how ther chiquisy and her pain is today. Job ID: [id number]
[2022-03-29] MEDS: ASCORBIC ACID 500 MG TAB PO SCH ×2 (08:38→17:46)
[2022-03-29] MEDS: FAMOTIDINE 20 MG TAB PO SCH ×2 (08:41→21:17)
[2022-03-29] MEDS: NORGESTIMATE/ETHINYL ESTRAD 0.25/0.035MG DSPK PO SCH (08:41)
[2022-03-29] MEDS: DOCUSATE SODIUM 100 MG CAP PO SCH ×2 (08:41→21:16)
[2022-03-29] MEDS: ASPIRIN 81 MG ECTAB PO SCH ×2 (08:41→21:15)
[2022-03-29] MEDS: HYDROXYUREA 500 MG CAP PO SCH ×2 (08:42→21:16)
[2022-03-29] MEDS: MAGNESIUM OXIDE 400 MG TAB PO SCH ×2 (08:43→21:16)
[2022-03-29] MEDS: LIDOCAINE 5% 1 PATCH TD SCH (08:43)
[2022-03-29] MEDS: ADVANCED PROBIOTIC 1250 MG CAPSULE PO SCH (08:43)
[2022-03-29] MEDS: MULTIVITAMIN TAB PO SCH (10:14)
[2022-03-29 10:28] LABS: Alanine Aminotransferase 20 U/L (7-52); Albumin Level 3.3 gm/dl (3.4-5.0); Alkaline Phosphatase 41 U/L (34-104); Anion Gap 4 (3-11); Aspartate Aminotransferase 32 U/L (13-39); Bilirubin,Total 0.6 mg/dl (0.2-1.0); Blood Urea Nitrogen 6 mg/dl (6-23); Calcium 8.4 mg/dl (8.5-10.1); Carbon Dioxide 24 mmol/L (21-32); Chloride 108 mmol/L (98-107); Creatinine Clr Calc Pharmacy 197.9 ml/min; Est GFR (African American) > 150.0 ml/min; Est GFR (Non-African American) 143.4 ml/min; Globulin 3.3 gm/dl (2.5-4.0); Glucose 129 mg/dl (70-99(Fasting)); Potassium 3.6 mmol/L (3.5-5.1); Sodium 136 mmol/L (136-145); Total Protein 6.6 gm/dl (6.0-8.3)
[2022-03-29 10:36] LABS: Hematocrit (blood only) 18.6 % (37.0-47.0); Mean Corpuscular Hemoglobin 41.2 pg (25.0-34.0); Mean Corpuscular Hgb Conc 37.6 g/dL (32.0-36.0); Mean Corpuscular Volume 109.4 fL (80.0-100.0); Mean Platelet Volume 9.9 fL (9.4-12.4); Nucleated RBC # (auto) 0.07 K/uL (0-0.12); Platelet Count 233 K/uL (130-400); RDW Coefficient of Variation 17.7 % (11.5-14.5); RDW Standard Deviation 71.7 fL (36.4-46.3); White Blood Count 6.94 K/ul (4.8-10.8)
[2022-03-29] MEDS ORDERED: SODIUM CHLORIDE 0.9% 250 ML IV PRN (10:45)
[2022-03-29] MEDS: SODIUM CHLORIDE 0.45 % 1,000 ML IV SCH ×2 (11:49→23:39)
--- NOTE | 2022-03-29 13:53 | Hospitalist Progress Note ---
Date of Service March 29, 2022 Assessment & Plan (1) History of total left hip arthroplasty: Plan: 21 y/o F with h/o sickle cell disease and extensive h/o hospitalization for sickle cell crisis, as well as h/o AVN of left hip now s/p left hip replacement. POD2. Unfortunately with what appears to be developing sickle cell pain crisis today. Sickle Cell Pain Crisis Developing pain crisis with generalized pain today, suspect due to recent hip replacement. Patient is utilizing 2L/min via nasal cannula for subjective shortness of breath but does not become hypoxic with wean to room air. She is afebrile. Does have chest pain (along with generalized pain) but without consolidation/infiltrate on several CXRs in last 24 hours - no acute chest syndrome. - continue full maintenance IVFs with 1/2NSS @100cc/hr - aggressive pain regimen: Fentanyl patch 12mcg q24h, hydromorphone IV 0.5mg IV q2 prn, Hydromorphone 2-4mgs Po q6 prn - continue bowel regimen with senna/colace and PRN milk of mag/Miralax - continue daily Hydroxyurea and folate - check retic count and follow up in AM - check CMP in AM Acute on Chronic Anemia Baseline Hgb 8-9. Hgb 7 this morning and Hct 18.6 - suspect acute exacerbation due to pain crisis as well as recent hip replacement. - ordered 2 units pRBCs and placed 2 more on hold - check H/H Q6H through tomorrow morning - aim to maintain Hgb >9.0 in context of pain crisis Left LE Pain Suspect in context of pain crisis as well as left hip replacement, but will order venous duplex to rule out DVT. - continue Aspirin 81mg PO BID as ordered by Ortho for DVT ppx. s/p Left hip replacement for AVN POD2, with developing pain crisis as stated above - aggressive pain control as stated above - PT/OT consulted - ambulate as tolerated Sleep disturbance; BPD - Mirtazapine QHS Chronic pain and opiate dependence - Control acute pain and resume home regimen once able to - Narcan PRN for bradypnea/respiratory depression FEN/GI: 1/2NSS @100cc/hr, regular diet DVT prophylaxis: SCDs, Aspirin 81mg PO BID CODE STATUS: Full code Disposition: Med/surg (2) Avascular necrosis of bone of hip: (3) Chronic pain: (4) Borderline personality disorder: (5) Avascular necrosis of bone of left hip: Admission and Anticipated Discharge Date Admission Date: March 27, 2022 Supervising Physician Co-Signing Physician Notes Resident Physician Supervision Note: I independently interviewed and examined the patient and verified the amaro history and physical, reviewed labs and image studies and agree with resident findings and care plan. Subjective Patient had uncontrolled pain at the beginning of night yesterday and did not get PRN Dilaudid for some time, then had period of decreased responsiveness concerning for pseudoseizure (has chronic pseudoseizures). Was given Narcan x1 and immediately woke up with significant pain. Then was given Dilaudid 1mg IV x1 and slept most of the night. Patient also remains on 2L/min nasal cannula - this was started last night. On weaning trial this morning patient felt short of breath, without hypoxia, so it was replaced at 2L. This morning patient reports generalized pain throughout arms, legs, back and chest. Pain has been controlled with Fentanyl patch as well as PRNs. No other concerns today. No bleeding/leaking from left hip surgical dressing. Review of Systems Review of Systems: All systems reviewed & are unremarkable except as noted in HPI & below Physical Exam Physical Exam: General: A&Ox3. NAD. Cooperative. HEENT: Atraumatic, normocephalic. Pulm: CTAB A&P. -wheezes, -rales, -rhonchi. Symmetrical chest rise. No increase work of breathing. No respiratory distress. Cardiac: RRR, -mrg. Radial pulses intact and symmetrical. Chest/Back: generalized pain that is worsened by palpation throughout chest and back Abdominal: soft, non-tender, non-distended, BS x 4 Extremities: generalized pain that is worsened by palpation through upper and lower extremities Results & Data Results & Data ([facility]) Vital Signs (Past 12 Hours) Vital Signs Temp Pulse Pulse Pulse Resp BP BP 03/29/22 12:57 36.7 C 70 20 96/55 L 03/29/22 12:42 36.9 C 69 22 97/52 L 03/29/22 12:37 36.8 C 74 18 93/53 L 03/29/22 12:21 36.8 C 69 18 94/56 L 03/29/22 11:27 78 87/42 L 03/29/22 07:28 37 C 70 14 92/49 L 03/29/22 03:00 36.8 C 72 14 91/55 L Pulse Ox O2 Del Method O2 Flow Rate 03/29/22 12:57 100 2 03/29/22 12:42 100 2 03/29/22 12:37 99 03/29/22 12:21 100 03/29/22 11:27 100 Nasal Cannula 2 03/29/22 07:28 100 Nasal Cannula 2 03/29/22 03:00 100 Room Air Resident Activity Tracking Resident Involvement: Resident Care Provided Care Provided: Adult Hospital Medicine
[2022-03-29 14:09] LABS: Reticulocyte % 7.3 % (0.5-2.0); Reticulocytes # 0.12 10^6/uL (0.02-0.10)
[2022-03-29 19:49] LABS: Hematocrit (blood only) 24.7 % (37.0-47.0); Hemoglobin 9.2 g/dl (12.0-16.0)
--- NOTE | 2022-03-29 20:32 | Ultrasound Report ---
LEFT LOWER EXTREMITY VENOUS DOPPLER CLINICAL HISTORY: Left lower extremity pain, sickle cell pain crisis COMPARISON STUDY: No previous studies for comparison. TECHNIQUE: Sonography of the deep venous system of the left lower extremity was performed. Compressi on and augmentation were evaluated. FINDINGS: The left common femoral, superficial femoral and popliteal veins were compressible. Augmen tation was normal. Flow was shown within the deep calf vessels. IMPRESSION: No evidence of deep venous thrombus within the left lower extremity. ACT 112: Negative or not required by law. Electronically signed by: Carl Jay M.D. 03/29/2022 8:31 PM
[2022-03-29] MEDS: MIRTAZAPINE TAB 15 MG TAB PO SCH (21:17)
[2022-03-29] MEDS: FOLIC ACID 1 MG TAB PO SCH (21:17)
[2022-03-29] MEDS: SENNA 8.6 MG TAB PO SCH (21:17)
[2022-03-29 23:58] LABS: Hematocrit (blood only) 25.4 % (37.0-47.0); Hemoglobin 9.4 g/dl (12.0-16.0)
[2022-03-30] MEDS: HYDROmorphone INJ 0.5 MG/0.5 ML SYR IV PRN ×5 (02:55→17:01)
[2022-03-30] MEDS: HYDROmorphone HCL 2 MG TAB PO PRN ×2 (05:06→21:14)
[2022-03-30] MEDS: ACETAMINOPHEN 500 MG TAB PO SCH ×3 (05:06→21:15)
--- NOTE | 2022-03-30 07:15 | Hospitalist Progress Note ---
Date of Service March 30, 2022 Assessment & Plan (1) History of total left hip arthroplasty: Plan: 21 y/o F with h/o sickle cell disease and extensive h/o hospitalization for sickle cell crisis, as well as h/o AVN of hips now s/p left hip replacement, POD3. Hospitalist is now primary service for management of sickle cell pain crisis. Sickle Cell Pain Crisis Developing pain crisis with generalized pain suspect due to recent hip replace ment. She is afebrile. Does have chest pain (along with generalized pain) but without consolidation/infiltrate on several CXRs in last 24 hours - lower suspicion for acute chest syndrome - continue 1/2NSS @100cc/hr - aggressive pain regimen: Fentanyl patch 12mcg q24h, hydromorphone IV 0.5mg IV q2 prn, Hydromorphone 2-3mg (decreasing from 2-4mg) Po q6 prn. - continue daily hydroxyurea and folate - reticulocyte count elevated at 5.4, stable Left lumbar radiculopathy, new on 03/30 - occurred in setting of standing up during PT session. pos straight leg raise - prior LLE pain; venous duplex was neg for DVT. - repeated L hip/pelvis XR; hardware is intact - messaged ortho; can consider IV steroids if severe; deferring in context of sickle cell crisis. - monitor clinically. consider advanced imaging if symptoms persist. - will need PT/OT evals after symptoms improve. dispo TBD; 03/28 eval recommended inpatient rehab; patient and mother undecided s/p Left hip replacement for AVN - see above. follow hip precautions. Acute on Chronic Anemia - Hb 7.0 AM of 03/29. Stable at low 9s after 2u prbc. Soft BP (87/42) improved (93/58). - aim to maintain Hgb >9.0 in context of pain crisis Sleep disturbance; BPD - Mirtazapine QHS Chronic pain and opiate use - Control acute pain and resume home regimen once able to - Narcan PRN for bradypnea/respiratory depression FEN/GI: 1/2NSS @100cc/hr, regular diet DVT prophylaxis: SCDs, Aspirin 81mg PO BID CODE STATUS: Full Disposition: Med surg. (2) Avascular necrosis of bone of hip: (3) Chronic pain: (4) Borderline personality disorder: (5) Avascular necrosis of bone of left hip: Admission and Anticipated Discharge Date Admission Date: March 29, 2022 Supervising Physician Co-Signing Physician Notes Resident Physician Supervision Note: I independently interviewed and examined the patient and verified the amaro history and physical, reviewed labs and image studies and agree with resident findings and care plan. Subjective Patient was sleeping prior to assessment this morning. She rates pain 4-5/10, tolerable. Mother is at bedside. ros: some chest pain, ongoing, not new. ~1230PM: Patient was working with physical therapy when she developed severe left lower extremity shooting pain that starts at the hip. This started upon standing up and prior to ambulation. She continues to have this pain while laying in bed. It is exacerbated with straight leg raise. Review of Systems Review of Systems: All systems reviewed & are unremarkable except as noted in HPI & below Physical Exam Physical Exam: General: Grossly A&O. NAD. Cooperative. HEENT: Atraumatic, normocephalic. Pulm: CTAB. -wheezes, -rales, -rhonchi. No respiratory distress. Cardiac: RRR, -mrg. No LE edema. Abdominal: Mild diffuse abd ttp. nondistended, soft. Neuro: Moving L ankle/toes. afternoon exam: positive straight leg raise on left with minimal elevation (5-10 degrees) Results & Data Results & Data ([facility]) Vital Signs (Past 12 Hours) Vital Signs Pulse BP 03/29/22 21:10 73 104/64 Resident Activity Tracking Resident Involvement: Resident Care Provided Care Provided: Adult [facility] Medicine
[2022-03-30] MEDS: FAMOTIDINE 20 MG TAB PO SCH ×2 (08:18→21:16)
[2022-03-30] MEDS: ASPIRIN 81 MG ECTAB PO SCH ×2 (08:19→21:16)
[2022-03-30] MEDS: MAGNESIUM OXIDE 400 MG TAB PO SCH ×2 (08:19→21:15)
[2022-03-30] MEDS: HYDROXYUREA 500 MG CAP PO SCH ×2 (08:19→21:14)
[2022-03-30] MEDS: MULTIVITAMIN TAB PO SCH (08:19)
[2022-03-30] MEDS: ASCORBIC ACID 500 MG TAB PO SCH ×2 (08:19→17:02)
[2022-03-30] MEDS: ADVANCED PROBIOTIC 1250 MG CAPSULE PO SCH (08:19)
[2022-03-30] MEDS: CHECK fentaNYL PATCH PLACEMENT SCH ×3 (08:20→23:11)
[2022-03-30] MEDS: LIDOCAINE 5% 1 PATCH TD SCH (08:25)
[2022-03-30] MEDS: DOCUSATE SODIUM 100 MG CAP PO SCH ×2 (08:25→21:17)
[2022-03-30] MEDS: NORGESTIMATE/ETHINYL ESTRAD 0.25/0.035MG DSPK PO SCH (08:26)
--- NOTE | 2022-03-30 08:45 | Progress Notes ---
SUBJECTIVE: A 21-year-old female now postop day 3 from a left uncemented total hip replacement done for avascular necrosis. Hip is doing okay. She did have a period yesterday where she was pretty festus nful, but seems to be better this morning. She describes just diffuse aches in her whole leg. Back pain seems to be improved. No chest pain or shortness of breath this morning. OBJECTIVE: VITAL SIGNS: Temperature 36.9. Vital signs are stable. GENERAL: Shows a pleasant 21-year-old female. She is lying in bed, looks pretty comfortable this mo rning. EXTREMITIES: Examination of the left hip reveals the dressing in place. Leg lengths are equal. Her toes were pointing straight up. She can dorsiflex and plantarflex her foot appropriately. She is n eurologically intact. LABORATORY DATA: Hemoglobin 9.4. Hematocrit 25.4. ASSESSMENT: This is a 21-year-old female with sickle cell disease, postop day 3 from a left total hi p replacement done for avascular necrosis and collapse. Orthopedically, she seems to be fine. Her h ip is located. She is neurologically intact. PLAN: 1. DVT prophylaxis includes thigh-high TEDs, SCDs, and aspirin twice a day for 6 weeks. 2. PT, OT. She can fully weightbear as tolerated on this left leg. She does need to obey hip preca utions. 3. Pain control, seems to be doing okay currently with current pain regimen. We will let medicine m anage this primarily due to her sickle cell crisis issues. 4. Disposition: She is orthopedically okay for discharge any time medically stable and pain control led. I believe she is thinking about a rehab stay. I am okay with either discharge to home or rehab whatever is decided. I need to see her back two to three weeks out from surgery date. Any orthoped ic questions can be directed to me at [phone]. Job ID: [id number]
[2022-03-30 09:34] LABS: Hemoglobin 9.3 g/dl (12.0-16.0); Mean Corpuscular Hemoglobin 37.7 pg (25.0-34.0); Mean Corpuscular Hgb Conc 35.8 g/dL (32.0-36.0); Mean Corpuscular Volume 105.3 fL (80.0-100.0); Mean Platelet Volume 9.4 fL (9.4-12.4); Nucleated RBC # (auto) 0.06 K/uL (0-0.12); Nucleated RBC % (auto) 1.1 %; Platelet Count 199 K/uL (130-400); RDW Coefficient of Variation 20.9 % (11.5-14.5); RDW Standard Deviation 79.6 fL (36.4-46.3); Red Blood Count 2.47 M/uL (4.20-5.40); Reticulocyte % 5.4 % (0.5-2.0); Reticulocytes # 0.13 10^6/uL (0.02-0.10); White Blood Count 5.23 K/ul (4.8-10.8)
[2022-03-30 09:44] LABS: Alanine Aminotransferase 22 U/L (7-52); Albumin Level 3.1 gm/dl (3.4-5.0); Alkaline Phosphatase 40 U/L (34-104); Anion Gap 3 (3-11); Aspartate Aminotransferase 30 U/L (13-39); BUN Creatinine Ratio 11.4 (10-20); Bilirubin,Total 0.8 mg/dl (0.2-1.0); Blood Urea Nitrogen 5 mg/dl (6-23); Calcium 8.5 mg/dl (8.5-10.1); Carbon Dioxide 26 mmol/L (21-32); Chloride 109 mmol/L (98-107); Creatinine Clr Calc Pharmacy 193.4 ml/min; Est GFR (African American) > 150.0 ml/min; Est GFR (Non-African American) 142.3 ml/min; Globulin 3.2 gm/dl (2.5-4.0); Glucose 93 mg/dl (70-99(Fasting)); Potassium 3.8 mmol/L (3.5-5.1); Sodium 138 mmol/L (136-145); Total Protein 6.3 gm/dl (6.0-8.3)
[2022-03-30 10:08] LABS: Anisocytosis Present; Basophils # (auto) 0.02 K/uL (0-0.2); Basophils % (auto) 0.4 %; Eosinophils # (auto) 0.03 K/uL (0-0.50); Eosinophils % (auto) 0.6 %; Immature Granulocytes # (auto) 0.01 K/uL (0.01-0.20); Immature Granulocytes % (auto) 0.2 %; Lymphocytes # (auto) 2.81 K/uL (1.2-3.4); Lymphocytes % (auto) 53.7 %; Monocytes # (auto) 0.17 K/uL (0.11-0.59); Monocytes % (auto) 3.3 %; Neutrophils # (auto) 2.19 K/uL (1.40-6.50); Neutrophils % (auto) 41.8 %; Polychromasia 1+; Target Cells 2+
[2022-03-30] MEDS: SODIUM CHLORIDE 0.45 % 1,000 ML IV SCH ×2 (10:33→21:13)
--- NOTE | 2022-03-30 14:52 | XRay Report ---
AP PELVIS, CROSSTABLE LATERAL LEFT HIP History: Left total hip arthroplasty. Degenerative arthritis. Postop. FINDINGS: The patient is status post a left total hip arthroplasty. The hardware is intact. No fractu re or dislocation. Skin deny are in place. Avascular necrosis of right femoral head and a right pr oximal femoral bone infarct remain unchanged. IMPRESSION: Left total hip arthroplasty. No evidence for hardware complication. ACT 112: Negative or not required by law. Electronically signed by: Cortes Fletcher M.D. 03/30/2022 2:50 PM
--- NOTE | 2022-03-30 18:02 | XRay Report ---
XR lumbar spine 2-3V CLINICAL HISTORY: point tenderness L3-L4 area. new L radicular pain COMPARISON STUDY: Lumbar spine MRI March 30, 2019. Lumbar spine radiographs October 13, 2021. FINDINGS: Left hip arthroplasty is incidentally noted. No acute lumbar spine fracture is noted. H-sha ped appearance of the lumbar vertebra remains unchanged from prior imaging studies. Disc spaces are p reserved. Facet joints are intact. There are no suspicious osseous lesions. IMPRESSION: 1. No acute lumbar spine fracture or subluxation. 2. No change in H-shaped appearance of the lower thoracic and lumbar vertebra. This can be seen in se tting of sickle cell anemia. ACT 112: Negative or not required by law. Electronically signed by: Carl Jay M.D. 03/30/2022 6:00 PM
[2022-03-30] MEDS: MIRTAZAPINE TAB 15 MG TAB PO SCH (21:14)
[2022-03-30] MEDS: FOLIC ACID 1 MG TAB PO SCH (21:16)
[2022-03-30] MEDS: SENNA 8.6 MG TAB PO SCH (21:17)
[2022-03-31] MEDS: HYDROmorphone HCL 2 MG TAB PO PRN (04:55)
--- NOTE | 2022-03-31 07:10 | Hospitalist Progress Note ---
Date of Service March 31, 2022 Assessment & Plan (1) History of total left hip arthroplasty: Plan: 21 y/o F with h/o sickle cell disease and extensive h/o hospitalization for sickle cell crisis, as well as h/o AVN of hips now s/p left hip replacement, POD3. Hospitalist is now primary service for management of sickle cell pain crisis. Sickle Cell Pain Crisis Developing pain crisis with generalized pain suspect due to recent hip replace ment. She is afebrile. Does have chest pain (along with generalized pain) but without consolidation/infiltrate on several CXRs - lower suspicion for acute chest syndrome. Remains in uncontrolled pain this morning - continue 1/2NSS @100cc/hr - start Dilaudid COAL MINER: 0.25mg doses with 30 minute intervals - maintain Fentanyl patch 12mcg q24H - continue daily hydroxyurea and folate - trend CMP and retic count in AM Left lumbar radiculopathy, new on 03/30 - occurred in setting of standing up during PT session. pos straight leg raise - prior LLE pain; venous duplex was neg for DVT. - repeated L hip/pelvis XR; hardware is intact - messaged ortho; can consider IV steroids if severe; deferring in context of sickle cell crisis. - monitor clinically. consider advanced imaging if symptoms persist. - will need PT/OT evals after symptoms improve. dispo TBD; 03/28 eval recommended inpatient rehab; patient and mother undecided s/p Left hip replacement for AVN - see above. follow hip precautions. Right hip with AVN - Noted on hip xray done 03/30/2022. - continue pain control Acute on Chronic Anemia - Hb 7.0 AM of 03/29. Stable at low 9s after 2u pRBCs - Aim to maintain Hgb >9.0 in context of pain crisis Sleep disturbance; BPD - Mirtazapine QHS Chronic pain and opiate use - Control acute pain and resume home regimen once able to - Narcan PRN for bradypnea/respiratory depression FEN/GI: 1/2NSS @100cc/hr, regular diet DVT prophylaxis: SCDs, Aspirin 81mg PO BID CODE STATUS: Full Disposition: Med surg (2) Avascular necrosis of bone of hip: (3) Chronic pain: (4) Borderline personality disorder: (5) Avascular necrosis of bone of left hip: Admission and Anticipated Discharge Date Admission Date: March 29, 2022 Supervising Physician Co-Signing Physician Notes Resident Physician Supervision Note: I independently interviewed and examined the patient and verified the amaro history and physical, reviewed labs and image studies and agree with resident findings and care plan. Subjective Patient reportedly had significant pain throughout the night. Of note patient's mother had approached night nursing as well as me this morning with concern about patient's use of narcotic pain medications, although it seems that patient is in [id number] generalized pain this morning, despite PO Dilaudid. Review of Systems Review of Systems: All systems reviewed & are unremarkable except as noted in HPI & below Physical Exam Physical Exam: General: A&Ox3. NAD. Cooperative. HEENT: Atraumatic, normocephalic. Pulm: CTAB A&P. -wheezes, -rales, -rhonchi. Symmetrical chest rise. No increase work of breathing. No respiratory distress. Cardiac: RRR, -mrg. Radial pulses intact and symmetrical. Chest/Back: generalized pain that is worsened by palpation throughout chest and back Abdominal: soft, non-tender, non-distended, BS x 4 Extremities: generalized pain that is worsened by palpation through upper and lower extremities Results & Data Results & Data ([facility]) Vital Signs (Past 12 Hours) Vital Signs Temp Pulse Resp BP Pulse Ox O2 Del Method 03/30/22 23:07 37 C 82 16 113/72 100 Room Air Resident Activity Tracking Resident Involvement: Resident Care Provided Care Provided: Adult Hospital Medicine
[2022-03-31] MEDS: LIDOCAINE 5% 1 PATCH TD SCH (08:08)
[2022-03-31] MEDS: SODIUM CHLORIDE 0.45 % 1,000 ML IV SCH ×2 (08:08→16:17)
[2022-03-31] MEDS: ADVANCED PROBIOTIC 1250 MG CAPSULE PO SCH (08:09)
[2022-03-31] MEDS: ASCORBIC ACID 500 MG TAB PO SCH ×2 (08:09→16:14)
[2022-03-31] MEDS: FAMOTIDINE 20 MG TAB PO SCH ×2 (08:09→21:57)
[2022-03-31] MEDS: MULTIVITAMIN TAB PO SCH (08:09)
[2022-03-31] MEDS: HYDROXYUREA 500 MG CAP PO SCH ×2 (08:09→21:57)
[2022-03-31] MEDS: ASPIRIN 81 MG ECTAB PO SCH ×2 (08:09→21:59)
[2022-03-31] MEDS: MAGNESIUM OXIDE 400 MG TAB PO SCH ×2 (08:10→21:59)
[2022-03-31] MEDS: CHECK fentaNYL PATCH PLACEMENT SCH ×2 (08:10→16:14)
[2022-03-31] MEDS: ACETAMINOPHEN 500 MG TAB PO SCH ×3 (08:10→21:58)
[2022-03-31] MEDS: DOCUSATE SODIUM 100 MG CAP PO SCH ×2 (08:13→21:59)
[2022-03-31] MEDS: fentaNYL 12 MCG/HR TDSY TD SCH (08:13)
--- NOTE | 2022-03-31 09:06 | Progress Notes ---
DATE OF SERVICE: 03/31/2022 SUBJECTIVE: A 21-year-old female, postoperative day #4 from a left uncemented total hip replacement. She is making some gradual gains. She has got a lot of aches and pains, which she feels is related to her sickle cell disease. Seems to be getting a little bit better, a little bit less hip pain tod ay. PHYSICAL EXAMINATION: VITAL SIGNS: Temperature 37.2. Vital signs are stable. GENERAL: Shows a pleasant, young female. She is lying on her right side and sleeping. I had to wak e her this morning. EXTREMITIES: Examination of the left hip reveals dressing to be clean, dry, and intact. Leg lengths are equal. She can dorsiflex and plantarflex her foot appropriately. She is neurologically intact. LABORATORY DATA: Hemoglobin yesterday was 9.3. Hematocrit 26.0. ASSESSMENT: A 21-year-old female with underlying sickle cell disease postoperative day #4 from the l eft hip replacement. Orthopedically, she seems to be doing fine with all other medical issues and pa in issues that she is dealing with. PLAN: 1. DVT prophylaxis includes thigh-high TEDs, SCDs, and aspirin twice a day. 2. PT/OT. She can fully weightbear as tolerated in the left lower extremity. Does need to obey hip precautions. 3. Pain control, seems to be doing okay with current pain regimen. We will leave that up to the [facility] Service as her pain issues are going to be chronic and pretty much unrelated to her hip replace ment. More likely related to her sickle cell disease. 4. Disposition: She is orthopedically okay for discharge any time medically stable. I need to see her back in 2-3 weeks out from surgery date. Any orthopedic questions can be directed to me at . Job ID: [id number]
[2022-03-31 10:05] LABS: Anion Gap 7 (3-11); Basophils # (auto) 0.02 K/uL (0-0.2); Basophils % (auto) 0.5 %; Blood Urea Nitrogen 4 mg/dl (6-23); Calcium 9.1 mg/dl (8.5-10.1); Carbon Dioxide 25 mmol/L (21-32); Chloride 107 mmol/L (98-107); Creatinine Clr Calc Pharmacy 212.7 ml/min; Eosinophils # (auto) 0.04 K/uL (0-0.50); Eosinophils % (auto) 1.1 %; Est GFR (African American) > 150.0 ml/min; Est GFR (Non-African American) 146.8 ml/min; Glucose 90 mg/dl (70-99(Fasting)); Hematocrit (blood only) 27.1 % (37.0-47.0); Hemoglobin 9.8 g/dl (12.0-16.0); Immature Granulocytes # (auto) 0.01 K/uL (0.01-0.20); Immature Granulocytes % (auto) 0.3 %; Lymphocytes # (auto) 1.71 K/uL (1.2-3.4); Mean Corpuscular Hemoglobin 37.7 pg (25.0-34.0); Mean Corpuscular Hgb Conc 36.2 g/dL (32.0-36.0); Mean Corpuscular Volume 104.2 fL (80.0-100.0); Mean Platelet Volume 9.5 fL (9.4-12.4); Monocytes # (auto) 0.17 K/uL (0.11-0.59); Monocytes % (auto) 4.7 %; Neutrophils # (auto) 1.69 K/uL (1.40-6.50); Neutrophils % (auto) 46.4 %; Nucleated RBC # (auto) 0.07 K/uL (0-0.12); Nucleated RBC % (auto) 1.9 %; Platelet Count 208 K/uL (130-400); Potassium 3.6 mmol/L (3.5-5.1); RDW Coefficient of Variation 20.5 % (11.5-14.5); RDW Standard Deviation 77.5 fL (36.4-46.3); Sodium 139 mmol/L (136-145); White Blood Count 3.64 K/ul (4.8-10.8)
[2022-03-31] MEDS ORDERED: NALOXONE HCL 0.4 MG/1 ML VIAL/CARP IV PRN (10:33)
[2022-03-31 10:57] LABS: Anisocytosis Present; Polychromasia 1+; Target Cells 2+
[2022-03-31 11:12] LABS: Alanine Aminotransferase 33 U/L (7-52); Albumin Level 3.4 gm/dl (3.4-5.0); Alkaline Phosphatase 53 U/L (34-104); Aspartate Aminotransferase 40 U/L (13-39); Bilirubin,Total 0.9 mg/dl (0.2-1.0); Total Protein 7.1 gm/dl (6.0-8.3)
[2022-03-31 12:30] LABS: Bilirubin Direct 0.2 mg/dl (0-0.2)
[2022-03-31] MEDS: NORGESTIMATE/ETHINYL ESTRAD 0.25/0.035MG DSPK PO SCH (16:12)
[2022-03-31] MEDS: HYDROmorphone PCA 30 MG/30 ML IV PRN ×2 (16:12→19:15)
[2022-03-31] MEDS: SODIUM CHLORIDE 0.9% 1000ML 1,000 ML IV SCH (16:13)
[2022-03-31] MEDS: SENNA 8.6 MG TAB PO SCH (21:57)
[2022-03-31] MEDS: MIRTAZAPINE TAB 15 MG TAB PO SCH (21:58)
[2022-03-31] MEDS: FOLIC ACID 1 MG TAB PO SCH (21:59)
[2022-04-01] MEDS: CHECK fentaNYL PATCH PLACEMENT SCH ×4 (01:02→23:59)
[2022-04-01] MEDS: SODIUM CHLORIDE 0.45 % 1,000 ML IV SCH ×3 (03:53→23:42)
[2022-04-01] MEDS: ACETAMINOPHEN 500 MG TAB PO SCH ×3 (06:11→21:32)
--- NOTE | 2022-04-01 07:44 | Progress Notes ---
DATE OF SERVICE: 04/01/2022. SUBJECTIVE: A 21-year-old female now postop day #5 from a left total hip replacement. She is strugg ling with her sickle cell disease. It does seem to be getting better. Pain seems a little bit deb r this morning. No other complaints. OBJECTIVE: VITAL SIGNS: Temperature is 36.9. Vital signs are stable. GENERAL: Shows a pleasant, young female. She is a little difficult to arouse this morning. Just ki nd of groggy and sleepy. She is lying on her right side. EXTREMITIES: Examination of the left hip reveals the dressing to be clean, dry and intact. Leg roberto ths were equal. Hip is located. She is neurologically intact. LABORATORY DATA: No new labs. ASSESSMENT: A 21-year-old female with underlying sickle cell disease. Postoperative day #5 from a l eft total hip replacement. Orthopedically, she seems to be doing fine. A lot of other aches and festus ns, some related to sickle cell, but likely and others may be not. PLAN: 1. DVT prophylaxis includes thigh-high TEDs, SCDs, and aspirin twice a day. 2. PT/OT. She can fully weightbear as tolerated. Does need to obey hip precautions. 3. Pain control. We will leave that up to the medicine service. She is on a fentanyl patch and I w leo recommend just p.o. Dilaudid. 4. Disposition: She is orthopedically okay for discharge any time. I need to see her back two to t hree weeks out from surgery date. Any orthopedic questions can be directed to me at [phone]. Job ID: [id number]
[2022-04-01] MEDS: ASCORBIC ACID 500 MG TAB PO SCH ×2 (08:17→17:56)
[2022-04-01] MEDS: DOCUSATE SODIUM 100 MG CAP PO SCH ×2 (08:18→21:29)
[2022-04-01] MEDS: ASPIRIN 81 MG ECTAB PO SCH ×2 (08:18→21:32)
[2022-04-01] MEDS: MULTIVITAMIN TAB PO SCH (08:19)
[2022-04-01] MEDS: ADVANCED PROBIOTIC 1250 MG CAPSULE PO SCH (08:19)
[2022-04-01] MEDS: FAMOTIDINE 20 MG TAB PO SCH ×2 (08:20→21:30)
[2022-04-01] MEDS: HYDROXYUREA 500 MG CAP PO SCH ×2 (08:20→21:28)
[2022-04-01] MEDS: MAGNESIUM OXIDE 400 MG TAB PO SCH ×2 (08:21→21:27)
[2022-04-01] MEDS: NORGESTIMATE/ETHINYL ESTRAD 0.25/0.035MG DSPK PO SCH (08:21)
[2022-04-01] MEDS: LIDOCAINE 5% 1 PATCH TD SCH (08:24)
[2022-04-01 08:36] LABS: Basophils # (auto) 0.01 K/uL (0-0.2); Basophils % (auto) 0.3 %; Eosinophils # (auto) 0.04 K/uL (0-0.50); Eosinophils % (auto) 1.1 %; Hemoglobin 9.3 g/dl (12.0-16.0); Immature Granulocytes # (auto) 0.01 K/uL (0.01-0.20); Immature Granulocytes % (auto) 0.3 %; Lymphocytes % (auto) 48.4 %; Mean Corpuscular Hemoglobin 38.3 pg (25.0-34.0); Mean Corpuscular Hgb Conc 37.2 g/dL (32.0-36.0); Mean Corpuscular Volume 102.9 fL (80.0-100.0); Mean Platelet Volume 9.4 fL (9.4-12.4); Monocytes # (auto) 0.15 K/uL (0.11-0.59); Monocytes % (auto) 4.3 %; Neutrophils % (auto) 45.6 %; Nucleated RBC # (auto) 0.07 K/uL (0-0.12); Platelet Count 187 K/uL (130-400); RDW Coefficient of Variation 19.4 % (11.5-14.5); RDW Standard Deviation 73.7 fL (36.4-46.3); Red Blood Count 2.43 M/uL (4.20-5.40); Reticulocyte % 3.9 % (0.5-2.0); Reticulocytes # 0.09 10^6/uL (0.02-0.10); White Blood Count 3.51 K/ul (4.8-10.8)
[2022-04-01 08:45] LABS: Alanine Aminotransferase 35 U/L (7-52); Albumin Level 3.5 gm/dl (3.4-5.0); Alkaline Phosphatase 62 U/L (34-104); Anion Gap 6 (3-11); Aspartate Aminotransferase 40 U/L (13-39); Bilirubin,Total 0.7 mg/dl (0.2-1.0); Blood Urea Nitrogen 6 mg/dl (6-23); Calcium 8.8 mg/dl (8.5-10.1); Carbon Dioxide 24 mmol/L (21-32); Chloride 107 mmol/L (98-107); Creatinine Clr Calc Pharmacy 212.7 ml/min; Est GFR (African American) > 150.0 ml/min; Est GFR (Non-African American) 146.8 ml/min; Globulin 3.4 gm/dl (2.5-4.0); Glucose 101 mg/dl (70-99(Fasting)); Magnesium 1.8 mg/dl (1.7-2.4); Potassium 4.1 mmol/L (3.5-5.1); Sodium 137 mmol/L (136-145); Total Protein 6.9 gm/dl (6.0-8.3)
--- NOTE | 2022-04-01 10:15 | Hospitalist Progress Note ---
Date of Service April 01, 2022 Assessment & Plan (1) History of total left hip arthroplasty: Plan: 21 y/o F with h/o sickle cell disease and extensive h/o hospitalization for sickle cell crisis, as well as h/o AVN of hips now s/p left hip replacement, POD5. Hospitalist service is now primary service for management. Sickle Cell Pain Crisis Developing pain crisis with generalized pain suspect due to recent hip replacement. Afebrile. Does have chest pain (along with generalized pain) but without consolidation/infiltrate on several CXRs - lower suspicion for acute chest syndrome. Pain better controlled on CHILD CARE CENTRE DIRECTOR pump. - continue 1/2NSS @100cc/hr - switched CHILD CARE CENTRE DIRECTOR pump from dilaudid to morphine (in attempts to mitigate dizziness/nausea): 2mg every 30 minutes - maintain Fentanyl patch 12mcg q3days - continue daily hydroxyurea and folate - trend CBC Left lumbar radiculopathy, new on 03/30 - occurred in setting of standing up during PT session. pos straight leg raise - prior LLE pain; venous duplex was neg for DVT. - repeated L hip/pelvis XR; hardware is intact - consulted ortho: can consider IV steroids if severe; deferring in context of sickle cell crisis. - monitor clinically. consider advanced imaging if symptoms persist. - will need PT/OT evals after symptoms improve. dispo TBD; 03/28 eval recommended inpatient rehab; patient and mother undecided at this time s/p Left hip replacement for AVN - see above. follow hip precautions. - ortho following -f/u outpatient in 2-3 weeks Acute on Chronic Anemia, improved - Hgb 7 on 03/29. Stable in low 9s s/p 2u pRBCs. - Aim to maintain Hgb >9.0 in context of pain crisis Sleep disturbance Bipolar disorder - Mirtazapine QHS GERD -cont. Pepcid 20mg bid Constipation -secondary to chronic opioid use -cont. mag ox, colace, senokot scheduled -prn miralax, milk of mag, maalox FEN/GI: 1/2NSS @100cc/hr, regular diet DVT prophylaxis: SCDs, Aspirin 81mg PO BID Code Status: Full Dispo: med surg (2) Avascular necrosis of bone of hip: (3) Chronic pain: (4) Borderline personality disorder: (5) Avascular necrosis of bone of left hip: Admission and Anticipated Discharge Date Admission Date: March 29, 2022 Supervising Physician Co-Signing Physician Notes I personally examined the patient and verified all amaro points of history and exam, discussed case, and agree with decision making with Dr Bailey Pain control reasonablebut notes that she is feeling very dizzy and wonders if a switch to morphine away from Dilaudid might be helpful. Vitals noted, in general she is awake and alert pleasant no distress. HEENT normocephalic atraumatic mucous membranes moist. Breathing unlabored no accessory muscle use good effort. Skin shows no rashes no pallor or icterus. Neuro without focal deficits. Sickle cell acute pain crisisnot surprising given her fairly brittle nature with sickle cell, having just had total hip replacement. Continue pain control and fluidschanged from Dilaudid to morphine CHILD CARE CENTRE DIRECTOR given that she has developed a degree of tachyphylaxis to Dilaudid recentlyand that has phenotypically resulted in loss of efficacy as well as side effect of dizziness. During last admission she actually had better pain control with less side effect on a comparably lower dose of morphine. Hip AVNstatus post ASIF Subjective Patient seen at bedside this morning. Having mild dizziness/nausea and generalized pain but doing well on CHILD CARE CENTRE DIRECTOR pump. Fentanyl patch was removed yesterday and not replaced as of yet. In good spirits following left hip replacement. Denies headache, chest pain, sob, abd pain. Review of Systems Review of Systems: All systems reviewed & are unremarkable except as noted in HPI & below Physical Exam Physical Exam: General: A&Ox3. NAD. Cooperative. HEENT: Atraumatic, normocephalic. Pulm: CTAB A&P. -wheezes, -rales, -rhonchi. Symmetrical chest rise. No increase work of breathing. No respiratory distress. Cardiac: RRR, -mrg. Radial pulses intact and symmetrical. Chest/Back: generalized pain that is worsened by palpation Abdominal: soft, non-tender, non-distended, BS x 4 Extremities: generalized pain that is worsened by palpation Results & Data Results & Data ([facility]) Vital Signs (Past 12 Hours) Vital Signs Temp Pulse Resp BP Pulse Ox O2 Del Method O2 Flow Rate 04/01/22 07:38 36.7 C 81 16 97/62 L 98 Room Air 04/01/22 03:19 36.9 C 80 16 96/57 L 98 Nasal Cannula 1 03/31/22 23:00 36.9 C 76 16 111/69 98 Room Air Laboratory Results 04/01/22 04/01/22 03/31/22 Range/Units 08:10 08:10 09:13 WBC 3.51 L (4.8-10.8) K/ul RBC 2.43 L (4.20-5.40) M/uL Hgb 9.3 L (12.0-16.0) g/dl Hct 25.0 L (37.0-47.0) % MCV 102.9 H (80.0-100.0) fL MCH 38.3 H (25.0-34.0) pg MCHC 37.2 H (32.0-36.0) g/dL RDW Std Deviation 73.7 H (36.4-46.3) fL RDW Coeff of Nando 19.4 H (11.5-14.5) % Plt Count 187 (130-400) K/uL MPV 9.4 (9.4-12.4) fL Immature Gran % (Auto) 0.3 % Neut % (Auto) 45.6 % Lymph % (Auto) 48.4 % [place] % (Auto) 4.3 % Eos % (Auto) 1.1 % Baso % (Auto) 0.3 % Reticulocyte % (Auto) 3.9 H (0.5-2.0) % Neut # (Auto) 1.60 (1.40-6.50) K/uL Lymph # (Auto) 1.70 (1.2-3.4) K/uL [place] # (Auto) 0.15 (0.11-0.59) K/uL Eos # (Auto) 0.04 (0-0.50) K/uL Baso # (Auto) 0.01 (0-0.2) K/uL Reticulocyte # 0.09 (0.02-0.10) 10^6/uL Immature Gran # (Auto) 0.01 (0.01-0.20) K/uL Absolute Nucleated RBC 0.07 (0-0.12) K/uL Nucleated RBC % (auto) 2.0 % Polychromasia Anisocytosis Target Cells Sodium 137 (136-145) mmol/L Potassium 4.1 (3.5-5.1) mmol/L Chloride 107 (98-107) mmol/L Carbon Dioxide 24 (21-32) mmol/L Anion Gap 6 (3-11) BUN 6 (6-23) mg/dl Creatinine 0.40 L (0.6-1.2) mg/dl Est Cr Clr Drug Dosing 212.7 ml/min Est GFR ( Amer) > 150.0 ml/min Est GFR (Non-Af Amer) 146.8 ml/min BUN/Creatinine Ratio 15.0 (10-20) Glucose 101 H (70-99(Fasting)) mg/dl Calcium 8.8 (8.5-10.1) mg/dl Magnesium 1.8 (1.7-2.4) mg/dl Total Bilirubin 0.7 0.9 (0.2-1.0) mg/dl Direct Bilirubin 0.2 (0-0.2) mg/dl AST 40 H 40 H (13-39) U/L ALT 35 33 (7-52) U/L Alkaline Phosphatase 62 53 (34-104) U/L Total Protein 6.9 7.1 (6.0-8.3) gm/dl Albumin 3.5 3.4 (3.4-5.0) gm/dl Globulin 3.4 (2.5-4.0) gm/dl Albumin/Globulin Ratio 1.0 (0.9-2) 03/31/22 Range/Units 09:13 WBC (4.8-10.8) K/ul RBC (4.20-5.40) M/uL Hgb (12.0-16.0) g/dl Hct (37.0-47.0) % MCV (80.0-100.0) fL MCH (25.0-34.0) pg MCHC (32.0-36.0) g/dL RDW Std Deviation (36.4-46.3) fL RDW Coeff of Nando (11.5-14.5) % Plt Count (130-400) K/uL MPV (9.4-12.4) fL Immature Gran % (Auto) % Neut % (Auto) % Lymph % (Auto) % [place] % (Auto) % Eos % (Auto) % Baso % (Auto) % Reticulocyte % (Auto) (0.5-2.0) % Neut # (Auto) (1.40-6.50) K/uL Lymph # (Auto) (1.2-3.4) K/uL [place] # (Auto) (0.11-0.59) K/uL Eos # (Auto) (0-0.50) K/uL Baso # (Auto) (0-0.2) K/uL Reticulocyte # (0.02-0.10) 10^6/uL Immature Gran # (Auto) (0.01-0.20) K/uL Absolute Nucleated RBC (0-0.12) K/uL Nucleated RBC % (auto) % Polychromasia 1+ Anisocytosis Present Target Cells 2+ Sodium (136-145) mmol/L Potassium (3.5-5.1) mmol/L Chloride (98-107) mmol/L Carbon Dioxide (21-32) mmol/L Anion Gap (3-11) BUN (6-23) mg/dl Creatinine (0.6-1.2) mg/dl Est Cr Clr Drug Dosing ml/min Est GFR ( Amer) ml/min Est GFR (Non-Af Amer) ml/min BUN/Creatinine Ratio (10-20) Glucose (70-99(Fasting)) mg/dl Calcium (8.5-10.1) mg/dl Magnesium (1.7-2.4) mg/dl Total Bilirubin (0.2-1.0) mg/dl Direct Bilirubin (0-0.2) mg/dl AST (13-39) U/L ALT (7-52) U/L Alkaline Phosphatase (34-104) U/L Total Protein (6.0-8.3) gm/dl Albumin (3.4-5.0) gm/dl Globulin (2.5-4.0) gm/dl Albumin/Globulin Ratio (0.9-2) Resident Activity Tracking Resident Involvement: Resident Care Provided Care Provided: Adult Hospital Medicine
[2022-04-01] MEDS: SODIUM CHLORIDE 0.9% 1000ML 1,000 ML IV SCH ×2 (10:41→13:49)
[2022-04-01] MEDS: fentaNYL 12 MCG/HR TDSY TD SCH (10:59)
[2022-04-01] MEDS ORDERED: NALOXONE HCL 0.4 MG/1 ML VIAL/CARP IV PRN (12:29)
[2022-04-01] MEDS: MoRPHine SULFATE PCA 30 MG/30 ML IV PRN ×2 (13:06→21:43)
[2022-04-01] MEDS ORDERED: MECLIZINE 12.5 MG TAB PO SCH (14:00)
[2022-04-01] MEDS: MECLIZINE HCL 25 MG TAB PO SCH ×2 (14:15→21:27)
--- NOTE | 2022-04-01 18:45 | Billing Data ---
Date of Service April 01, 2022 Coding Level of Care Code 53829 SUB INP/OBS CARE 3MIN
[2022-04-01] MEDS: SENNA 8.6 MG TAB PO SCH (21:29)
[2022-04-01] MEDS: FOLIC ACID 1 MG TAB PO SCH (21:30)
[2022-04-01] MEDS: MIRTAZAPINE TAB 15 MG TAB PO SCH (21:31)
--- NOTE | 2022-04-02 06:58 | Hospitalist Progress Note ---
Date of Service April 02, 2022 Assessment & Plan (1) History of total left hip arthroplasty: Plan: 21 y/o F with h/o sickle cell disease and extensive h/o hospitalization for sickle cell crisis, as well as h/o AVN of hips now s/p left hip replacement, POD5. Hospitalist service is now primary service for management. Sickle Cell Pain Crisis Developing pain crisis with generalized pain suspect due to recent hip replacement. Afebrile. Does have chest pain (along with generalized pain) but without consolidation/infiltrate on several CXRs - lower suspicion for acute chest syndrome. Pain better controlled on QUALITY ASSURANCE SPECIALIST pump. - continue 1/2NSS @100cc/hr - switched QUALITY ASSURANCE SPECIALIST pump from dilaudid to morphine (in attempts to mitigate dizziness/nausea): 2mg every 30 minutes - maintain Fentanyl patch 12mcg q3days - continue daily hydroxyurea and folate - trend CBC Left lumbar radiculopathy, new on 03/30 - occurred in setting of standing up during PT session. pos straight leg raise - prior LLE pain; venous duplex was neg for DVT. - repeated L hip/pelvis XR; hardware is intact - consulted ortho: can consider IV steroids if severe; deferring in context of sickle cell crisis. - monitor clinically. consider advanced imaging if symptoms persist. - will need PT/OT evals after symptoms improve. dispo TBD; 03/28 eval recommended inpatient rehab; patient and mother undecided at this time s/p Left hip replacement for AVN - see above. follow hip precautions. - ortho following -f/u outpatient in 2-3 weeks Acute on Chronic Anemia, improved - Hgb 7 on 03/29. Stable in low 9s s/p 2u pRBCs. - Aim to maintain Hgb >9.0 in context of pain crisis Sleep disturbance Bipolar disorder - Mirtazapine QHS GERD -cont. Pepcid 20mg bid Constipation -secondary to chronic opioid use -cont. mag ox, colace, senokot scheduled -prn miralax, milk of mag, maalox FEN/GI: 1/2NSS @100cc/hr, regular diet DVT prophylaxis: SCDs, Aspirin 81mg PO BID Code Status: Full Dispo: med surg (2) Avascular necrosis of bone of hip: (3) Chronic pain: (4) Borderline personality disorder: (5) Avascular necrosis of bone of left hip: Admission and Anticipated Discharge Date Admission Date: March 29, 2022 Subjective Patient seen at bedside this morning. Having mild dizziness/nausea and generalized pain. Struggled a bit with pain on QUALITY ASSURANCE SPECIALIST pump overnight. In good spirits following left hip replacement. Denies headache, chest pain, sob, abd pain. Review of Systems Review of Systems: All systems reviewed & are unremarkable except as noted in HPI & below Physical Exam Physical Exam: General: A&Ox3. NAD. Cooperative. HEENT: Atraumatic, normocephalic. Pulm: CTAB A&P. -wheezes, -rales, -rhonchi. Symmetrical chest rise. No increase work of breathing. No respiratory distress. Cardiac: RRR, -mrg. Radial pulses intact and symmetrical. Chest/Back: generalized pain that is worsened by palpation Abdominal: soft, non-tender, non-distended, BS x 4 Extremities: generalized pain that is worsened by palpation Results & Data Results & Data ([facility]) Vital Signs (Past 12 Hours) Vital Signs Temp Pulse Resp BP Pulse Ox O2 Del Method 04/02/22 03:00 36.4 C L 74 16 92/56 L 96 Room Air 04/01/22 22:52 36.7 C 78 16 101/64 97 Nasal Cannula 04/01/22 19:09 36.8 C 82 16 109/72 99 Nasal Cannula Laboratory Results 04/02/22 04/02/22 Range/Units 08:51 08:51 WBC 2.97 L (4.8-10.8) K/ul RBC 2.42 L (4.20-5.40) M/uL Hgb 9.1 L (12.0-16.0) g/dl Hct 25.7 L (37.0-47.0) % MCV 106.2 H (80.0-100.0) fL MCH 37.6 H (25.0-34.0) pg MCHC 35.4 (32.0-36.0) g/dL RDW Std Deviation 75.9 H (36.4-46.3) fL RDW Coeff of Nando 19.5 H (11.5-14.5) % Plt Count 175 (130-400) K/uL MPV 9.5 (9.4-12.4) fL Immature Gran % (Auto) 0.3 % Neut % (Auto) 26.0 % Lymph % (Auto) 66.7 % [place] % (Auto) 5.7 % Eos % (Auto) 1.0 % Baso % (Auto) 0.3 % Neut # (Auto) 0.77 L* (1.40-6.50) K/uL Lymph # (Auto) 1.98 (1.2-3.4) K/uL [place] # (Auto) 0.17 (0.11-0.59) K/uL Eos # (Auto) 0.03 (0-0.50) K/uL Baso # (Auto) 0.01 (0-0.2) K/uL Immature Gran # (Auto) 0.01 (0.01-0.20) K/uL Absolute Nucleated RBC 0.02 (0-0.12) K/uL Nucleated RBC % (auto) 0.7 % Sodium 136 (136-145) mmol/L Potassium 3.9 (3.5-5.1) mmol/L Chloride 106 (98-107) mmol/L Carbon Dioxide 26 (21-32) mmol/L Anion Gap 4 (3-11) BUN 5 L (6-23) mg/dl Creatinine 0.39 L (0.6-1.2) mg/dl Est Cr Clr Drug Dosing 218.2 ml/min Est GFR ( Amer) > 150.0 ml/min Est GFR (Non-Af Amer) 148.0 ml/min BUN/Creatinine Ratio 12.8 (10-20) Glucose 113 H (70-99(Fasting)) mg/dl Calcium 8.9 (8.5-10.1) mg/dl Magnesium 1.7 (1.7-2.4) mg/dl Resident Activity Tracking Resident Involvement: Resident Care Provided Care Provided: Adult Hospital Medicine
[2022-04-02] MEDS: ACETAMINOPHEN 500 MG TAB PO SCH ×3 (07:06→22:01)
[2022-04-02] MEDS: CHECK fentaNYL PATCH PLACEMENT SCH ×3 (08:00→23:19)
[2022-04-02 09:07] LABS: Hematocrit (blood only) 25.7 % (37.0-47.0); Hemoglobin 9.1 g/dl (12.0-16.0); Mean Corpuscular Hemoglobin 37.6 pg (25.0-34.0); Mean Corpuscular Hgb Conc 35.4 g/dL (32.0-36.0); Mean Corpuscular Volume 106.2 fL (80.0-100.0); Mean Platelet Volume 9.5 fL (9.4-12.4); Nucleated RBC # (auto) 0.02 K/uL (0-0.12); Nucleated RBC % (auto) 0.7 %; Platelet Count 175 K/uL (130-400); RDW Coefficient of Variation 19.5 % (11.5-14.5); RDW Standard Deviation 75.9 fL (36.4-46.3); Red Blood Count 2.42 M/uL (4.20-5.40); White Blood Count 2.97 K/ul (4.8-10.8)
[2022-04-02 09:22] LABS: Anion Gap 4 (3-11); BUN Creatinine Ratio 12.8 (10-20); Blood Urea Nitrogen 5 mg/dl (6-23); Calcium 8.9 mg/dl (8.5-10.1); Carbon Dioxide 26 mmol/L (21-32); Chloride 106 mmol/L (98-107); Creatinine Clr Calc Pharmacy 218.2 ml/min; Est GFR (African American) > 150.0 ml/min; Glucose 113 mg/dl (70-99(Fasting)); Magnesium 1.7 mg/dl (1.7-2.4); Potassium 3.9 mmol/L (3.5-5.1); Sodium 136 mmol/L (136-145)
[2022-04-02 09:32] LABS: Basophils # (auto) 0.01 K/uL (0-0.2); Basophils % (auto) 0.3 %; Eosinophils # (auto) 0.03 K/uL (0-0.50); Immature Granulocytes # (auto) 0.01 K/uL (0.01-0.20); Immature Granulocytes % (auto) 0.3 %; Lymphocytes # (auto) 1.98 K/uL (1.2-3.4); Lymphocytes % (auto) 66.7 %; Monocytes # (auto) 0.17 K/uL (0.11-0.59); Monocytes % (auto) 5.7 %; Neutrophils # (auto) 0.77 K/uL (1.40-6.50)
[2022-04-02] MEDS: SODIUM CHLORIDE 0.45 % 1,000 ML IV SCH ×3 (10:17→21:55)
[2022-04-02] MEDS: NORGESTIMATE/ETHINYL ESTRAD 0.25/0.035MG DSPK PO SCH (10:18)
[2022-04-02] MEDS: ASPIRIN 81 MG ECTAB PO SCH ×2 (10:18→21:59)
[2022-04-02] MEDS: DOCUSATE SODIUM 100 MG CAP PO SCH ×2 (10:19→21:58)
[2022-04-02] MEDS: FAMOTIDINE 20 MG TAB PO SCH ×2 (10:20→22:00)
[2022-04-02] MEDS: HYDROXYUREA 500 MG CAP PO SCH ×2 (10:20→22:00)
[2022-04-02] MEDS: MAGNESIUM OXIDE 400 MG TAB PO SCH ×2 (10:20→21:58)
[2022-04-02] MEDS: MULTIVITAMIN TAB PO SCH (10:21)
[2022-04-02] MEDS: ADVANCED PROBIOTIC 1250 MG CAPSULE PO SCH (10:21)
[2022-04-02] MEDS: ASCORBIC ACID 500 MG TAB PO SCH ×2 (10:21→18:13)
[2022-04-02] MEDS: MECLIZINE HCL 25 MG TAB PO SCH ×3 (10:22→21:59)
[2022-04-02] MEDS: LIDOCAINE 5% 1 PATCH TD SCH (10:31)
[2022-04-02] MEDS: MoRPHine SULFATE PCA 30 MG/30 ML IV PRN ×2 (13:19→23:44)
[2022-04-02] MEDS: SODIUM CHLORIDE 0.9% 1000ML 1,000 ML IV SCH (13:45)
[2022-04-02] MEDS: diphenhydrAMINE Capsule 25 MG CAP PO PRN (18:17)
--- NOTE | 2022-04-02 19:57 | Billing Data ---
Date of Service April 02, 2022 Coding Level of Care Code 91913 SUB INP/OBS CARE 3MIN
--- NOTE | 2022-04-02 19:58 | Billing Data ---
Date of Service April 02, 2022 Coding Level of Care Code 30040 SUB INP/OBS CARE 3MIN
[2022-04-02] MEDS: diphenhydrAMINE 50 MG/ML VIAL IV PRN (20:11)
--- NOTE | 2022-04-02 20:45 | Progress Notes ---
DATE OF SERVICE: 04/02/2022. SUBJECTIVE: A 21-year-old black female, now 6 days out from a left uncemented total hip replacement. She seems to be doing quite a bit better this afternoon than previously. She is lying in bed and l ooks comfortable. Pain seems to be improving. No new complaints. OBJECTIVE: VITAL SIGNS: Temperature 37.0. Vital signs are stable. GENERAL: A pleasant 21-year-old female. She is lying in bed and was reading. She looks pretty comf ortable. EXTREMITIES: Examination of the left hip reveals the dressing to be clean, dry and intact. Leg roberto ths were equal. She is neurologically intact. LABORATORY DATA: Hemoglobin 9.1. Hematocrit 25.7. Electrolytes are stable. ASSESSMENT: A 21-year-old female with underlying sickle cell disease postop day #6 from a left total hip replacement, orthopedically doing okay. She looks a lot more comfortable. Pain seems to be con trolled. Hip is located. She is neurologically intact. She had some concerns about the leg, ankle and leg. Her leg lengths seemed pretty equal to me. PLAN: 1. DVT prophylaxis includes thigh-high TEDs, SCDs, and aspirin twice a day. 2. PT, OT, weightbear as tolerated. Left total hip protocol. 3. Pain control, doing okay currently with current pain regimen. 4. Medical management as per the medicine service. 5. Disposition, orthopedically she is okay for discharge any time medically stable. I will see her back in 2-3 weeks out from surgery date. Any orthopedic questions can be directed me at [phone] . Job ID: [id number]
[2022-04-02] MEDS: MIRTAZAPINE TAB 15 MG TAB PO SCH (21:58)
[2022-04-02] MEDS: FOLIC ACID 1 MG TAB PO SCH (21:59)
[2022-04-02] MEDS: SENNA 8.6 MG TAB PO SCH (21:59)
[2022-04-02] MEDS: MAGNESIUM HYDROXIDE SUSP 30 ML UDC PO SCH (22:04)
[2022-04-03] MEDS: LIDOCAINE 5% 1 PATCH TD SCH ×3 (04:45→09:49)
[2022-04-03] MEDS: diphenhydrAMINE 50 MG/ML VIAL IV PRN ×3 (04:45→20:56)
[2022-04-03] MEDS: ACETAMINOPHEN 500 MG TAB PO SCH ×3 (06:18→21:01)
--- NOTE | 2022-04-03 06:44 | Hospitalist Progress Note ---
Date of Service April 03, 2022 Assessment & Plan (1) History of total left hip arthroplasty: Plan: 21 y/o F with h/o sickle cell disease and extensive h/o hospitalization for sickle cell crisis, as well as h/o AVN of hips now s/p left hip replacement, POD5. Hospitalist service is now primary service for management. Sickle Cell Pain Crisis Developing pain crisis with generalized pain suspect due to recent hip replacement. Afebrile. Does have chest pain (along with generalized pain) but without consolidation/infiltrate on several CXRs - lower suspicion for acute chest syndrome. Pain better controlled on PIE FILLING MIXER pump. - continue 1/2NSS @100cc/hr - switched PIE FILLING MIXER pump from dilaudid to morphine (in attempts to mitigate dizziness/nausea): 2mg every 30 minutes - maintain Fentanyl patch 12mcg q3days - continue daily hydroxyurea and folate - trend CBC Left lumbar radiculopathy, new on 03/30 - occurred in setting of standing up during PT session. pos straight leg raise - prior LLE pain; venous duplex was neg for DVT. - repeated L hip/pelvis XR; hardware is intact - consulted ortho: can consider IV steroids if severe; deferring in context of sickle cell crisis. - monitor clinically. consider advanced imaging if symptoms persist. - will need PT/OT evals after symptoms improve. dispo TBD; 03/28 eval recommended inpatient rehab; patient and mother undecided at this time s/p Left hip replacement for AVN - see above. follow hip precautions. - ortho following -f/u outpatient in 2-3 weeks Acute on Chronic Anemia, improved - Hgb 7 on 03/29. Stable in low 9s s/p 2u pRBCs. - Aim to maintain Hgb >9.0 in context of pain crisis Sleep disturbance Bipolar disorder - Mirtazapine QHS GERD -cont. Pepcid 20mg bid Constipation -secondary to chronic opioid use -cont. mag ox, colace, senokot scheduled -prn miralax, milk of mag, maalox FEN/GI: 1/2NSS @100cc/hr, regular diet DVT prophylaxis: SCDs, Aspirin 81mg PO BID Code Status: Full Dispo: med surg (2) Avascular necrosis of bone of hip: (3) Chronic pain: (4) Borderline personality disorder: (5) Avascular necrosis of bone of left hip: Admission and Anticipated Discharge Date Admission Date: March 29, 2022 Supervising Physician Co-Signing Physician Notes I personally examined the patient and verified all amaro points of history and exam, discussed case, and agree with decision making with Dr Bailey Overall pain control is reasonable. Has a lot of left lateral thigh pain. Worries about a leg length discrepancybut also notes that she does not really seem to be having new pain from this, but more just that she is worried that her left leg is now longer than her right. Vitals noted, in general she is awake and alert pleasant no distress. HEENT normocephalic atraumatic mucous membranes moist. Breathing unlabored no accessory muscle use good effort. Skin shows no rashes no pallor or icterus. Neuro without focal deficits. Left IT band very tender, decreased range of motiongentle inhibitory pressure/LAS done with some improvement in tissue texture and tenderness. Left leg may be a millimeter longer than right but certainly difficult exam conditions for accuracy. Gait also shows her to be favoring the left leg. Sickle cell acute pain crisisnot surprising given her fairly brittle nature with sickle cell, having just had total hip replacement. Pain overall controlled on morphine PCAcontinue in hospital due to high risk management with IV narcotics. Left thigh pain appears to be largely IT band, not surprising given hip replacement/etc. Voltaren gel 4 times daily to this area. Leg length discrepancy seems to be mild if at all present, discussed at length, may not actually cause her any problems, certainly can easily do a small heel lift in her right if it does become a problem. Continue to follow. Hip AVNstatus post ASIF Subjective Patient seen at bedside this morning. Having mild dizziness/nausea and generalized pain. Doing well on PIE FILLING MIXER pump. In good spirits following left hip replacement. Denies headache, chest pain, sob, abd pain. Review of Systems Review of Systems: All systems reviewed & are unremarkable except as noted in HPI & below Physical Exam 2 Physical Exam: General: A&Ox3. NAD. Cooperative. HEENT: Atraumatic, normocephalic. Pulm: CTAB A&P. -wheezes, -rales, -rhonchi. Symmetrical chest rise. No increase work of breathing. No respiratory distress. Cardiac: RRR, -mrg. Radial pulses intact and symmetrical. Chest/Back: generalized pain that is worsened by palpation Abdominal: soft, non-tender, non-distended, BS x 4 Extremities: generalized pain that is worsened by palpation Results & Data Results & Data ([facility]) Vital Signs (Past 12 Hours) Vital Signs Temp Pulse Resp BP Pulse Ox O2 Del Method 04/02/22 20:30 Room Air 04/02/22 20:18 37.0 C 85 17 102/66 99 Room Air Laboratory Results 04/03/22 Range/Units 09:01 WBC 4.07 L (4.8-10.8) K/ul RBC 2.30 L (4.20-5.40) M/uL Hgb 8.7 L (12.0-16.0) g/dl Hct 24.6 L (37.0-47.0) % MCV 107.0 H (80.0-100.0) fL MCH 37.8 H (25.0-34.0) pg MCHC 35.4 (32.0-36.0) g/dL RDW Std Deviation 74.3 H (36.4-46.3) fL RDW Coeff of Nando 19.0 H (11.5-14.5) % Plt Count 193 (130-400) K/uL MPV 9.4 (9.4-12.4) fL Immature Gran % (Auto) 0.2 % Neut % (Auto) 35.9 % Lymph % (Auto) 56.0 % Martin % (Auto) 5.9 % Eos % (Auto) 1.5 % Baso % (Auto) 0.5 % Neut # (Auto) 1.46 (1.40-6.50) K/uL Lymph # (Auto) 2.28 (1.2-3.4) K/uL Martin # (Auto) 0.24 (0.11-0.59) K/uL Eos # (Auto) 0.06 (0-0.50) K/uL Baso # (Auto) 0.02 (0-0.2) K/uL Immature Gran # (Auto) 0.01 (0.01-0.20) K/uL Absolute Nucleated RBC 0.02 (0-0.12) K/uL Nucleated RBC % (auto) 0.5 % Target Cells 1+ Resident Activity Tracking Resident Involvement: Resident Care Provided Care Provided: [facility]
[2022-04-03 09:41] LABS: Hematocrit (blood only) 24.6 % (37.0-47.0); Hemoglobin 8.7 g/dl (12.0-16.0); Mean Corpuscular Hemoglobin 37.8 pg (25.0-34.0); Mean Corpuscular Hgb Conc 35.4 g/dL (32.0-36.0); Mean Platelet Volume 9.4 fL (9.4-12.4); Nucleated RBC # (auto) 0.02 K/uL (0-0.12); Nucleated RBC % (auto) 0.5 %; Platelet Count 193 K/uL (130-400); RDW Standard Deviation 74.3 fL (36.4-46.3); White Blood Count 4.07 K/ul (4.8-10.8)
[2022-04-03] MEDS: CHECK fentaNYL PATCH PLACEMENT SCH ×2 (09:45→17:00)
[2022-04-03] MEDS: FAMOTIDINE 20 MG TAB PO SCH ×2 (09:46→20:59)
[2022-04-03] MEDS: ASPIRIN 81 MG ECTAB PO SCH ×2 (09:46→21:00)
[2022-04-03] MEDS: MAGNESIUM OXIDE 400 MG TAB PO SCH ×2 (09:47→21:00)
[2022-04-03] MEDS: DOCUSATE SODIUM 100 MG CAP PO SCH ×2 (09:47→20:58)
[2022-04-03] MEDS: HYDROXYUREA 500 MG CAP PO SCH ×2 (09:47→20:59)
[2022-04-03] MEDS: MECLIZINE HCL 25 MG TAB PO SCH ×3 (09:47→20:59)
[2022-04-03] MEDS: ASCORBIC ACID 500 MG TAB PO SCH ×2 (09:48→17:03)
[2022-04-03] MEDS: ADVANCED PROBIOTIC 1250 MG CAPSULE PO SCH (09:48)
[2022-04-03] MEDS: MULTIVITAMIN TAB PO SCH (09:48)
[2022-04-03] MEDS: NORGESTIMATE/ETHINYL ESTRAD 0.25/0.035MG DSPK PO SCH (09:48)
[2022-04-03] MEDS: MAGNESIUM HYDROXIDE SUSP 30 ML UDC PO SCH ×4 (09:49→20:58)
[2022-04-03] MEDS: SODIUM CHLORIDE 0.45 % 1,000 ML IV SCH ×2 (09:54→17:59)
[2022-04-03 10:33] LABS: Basophils # (auto) 0.02 K/uL (0-0.2); Basophils % (auto) 0.5 %; Eosinophils # (auto) 0.06 K/uL (0-0.50); Eosinophils % (auto) 1.5 %; Immature Granulocytes # (auto) 0.01 K/uL (0.01-0.20); Immature Granulocytes % (auto) 0.2 %; Lymphocytes # (auto) 2.28 K/uL (1.2-3.4); Monocytes # (auto) 0.24 K/uL (0.11-0.59); Monocytes % (auto) 5.9 %; Neutrophils # (auto) 1.46 K/uL (1.40-6.50); Neutrophils % (auto) 35.9 %; Target Cells 1+
[2022-04-03] MEDS: SODIUM CHLORIDE 0.9% 1000ML 1,000 ML IV SCH (13:00)
[2022-04-03] MEDS: MoRPHine SULFATE PCA 30 MG/30 ML IV PRN ×2 (13:05→21:44)
--- NOTE | 2022-04-03 18:19 | Billing Data ---
Date of Service April 03, 2022 Coding Level of Care Code 09630 SUB INP/OBS CARE 3MIN
[2022-04-03] MEDS: DICLOFENAC SOD 1% GEL 100 GM TUBE EXT SCH (20:58)
[2022-04-03] MEDS: FOLIC ACID 1 MG TAB PO SCH (20:58)
[2022-04-03] MEDS: MIRTAZAPINE TAB 15 MG TAB PO SCH (20:59)
[2022-04-03] MEDS: SENNA 8.6 MG TAB PO SCH (20:59)
[2022-04-04] MEDS: CHECK fentaNYL PATCH PLACEMENT SCH ×4 (00:42→23:26)
[2022-04-04] MEDS: SODIUM CHLORIDE 0.45 % 1,000 ML IV SCH ×2 (04:32→20:21)
[2022-04-04] MEDS: diphenhydrAMINE 50 MG/ML VIAL IV PRN ×3 (05:56→21:54)
[2022-04-04] MEDS: ACETAMINOPHEN 500 MG TAB PO SCH ×3 (05:56→21:56)
--- NOTE | 2022-04-04 06:56 | Hospitalist Progress Note ---
Date of Service April 04, 2022 Assessment & Plan (1) History of total left hip arthroplasty: Plan: 21 y/o F with h/o sickle cell disease and extensive h/o hospitalization for sickle cell crisis, as well as h/o AVN of hips now s/p left hip replacement, POD5. Hospitalist service is now primary service for management. Sickle Cell Pain Crisis Developing pain crisis with generalized pain suspect due to recent hip replacement. Afebrile. Does have chest pain (along with generalized pain) but without consolidation/infiltrate on several CXRs - lower suspicion for acute chest syndrome. Pain better controlled on [employer] pump. - continue 1/2NSS @100cc/hr - switched [employer] pump from dilaudid to morphine (in attempts to mitigate dizziness/nausea): 2mg every 30 minutes - maintain Fentanyl patch 12mcg q3days - continue daily hydroxyurea and folate - trend CBC Left lumbar radiculopathy, new on 03/30 - occurred in setting of standing up during PT session. pos straight leg raise - prior LLE pain; venous duplex was neg for DVT. - repeated L hip/pelvis XR; hardware is intact - consulted ortho: can consider IV steroids if severe; deferring in context of sickle cell crisis. - monitor clinically. consider advanced imaging if symptoms persist. - will need PT/OT evals after symptoms improve. dispo TBD; 03/28 eval recommended inpatient rehab; patient and mother undecided at this time s/p Left hip replacement for AVN - see above. follow hip precautions. - ortho following -f/u outpatient in 2-3 weeks Acute on Chronic Anemia, improved - Hgb 7 on 03/29. Stable in low 9s s/p 2u pRBCs. - Aim to maintain Hgb >9.0 in context of pain crisis Sleep disturbance Bipolar disorder - Mirtazapine QHS GERD -cont. Pepcid 20mg bid Constipation -secondary to chronic opioid use -cont. mag ox, colace, senokot scheduled -prn miralax, milk of mag, maalox FEN/GI: 1/2NSS @100cc/hr, regular diet DVT prophylaxis: SCDs, Aspirin 81mg PO BID Code Status: Full Dispo: med surg (2) Avascular necrosis of bone of hip: (3) Chronic pain: (4) Borderline personality disorder: (5) Avascular necrosis of bone of left hip: Admission and Anticipated Discharge Date Admission Date: March 29, 2022 Supervising Physician Co-Signing Physician Notes I personally examined the patient and verified all amaro points of history and exam, discussed case, and agree with decision making with Dr Bailey Walking the halls on a very first year. Walking slow but fairly steady. Later whenever he was actually able to visit her, she notes that her pain is overall doing better, she is hopeful to get home in the next few days. No acute complaints otherwise. Sickle cell acute pain crisisnot surprising given her fairly brittle nature with sickle cell, having just had total hip replacement. Pain overall controlled on morphine PCAcontinue in hospital due to high risk management with IV narcotics. Left thigh pain appears to be largely IT band, not surprising given hip replacement/etc. improving with Voltaren gel and yesterday's OMT. Leg length discrepancy seems to be mild if at all present, discussed at length, may not actually cause her any problems, certainly can easily do a small heel lift in her right if it does become a problem (has some degree of right posterior hip/buttock pain that would be indicative of a possible need for heel lift, but right now given that she is so acutely recovering from her hip surgery, we discussed that heel lift/OMT for her right pelvic stabilizing musculature is likely a bit premature, given that simply with time/healing/PT the whole process may fix itself). Continue to follow. Hip AVNstatus post ASIF Subjective Patient seen at bedside this morning. Having mild dizziness/nausea and generalized pain. Doing well on [employer] pump. In good spirits following left hip replacement. Denies headache, chest pain, sob, abd pain. Review of Systems Review of Systems: All systems reviewed & are unremarkable except as noted in HPI & below Physical Exam Physical Exam: General: A&Ox3. NAD. Cooperative. HEENT: Atraumatic, normocephalic. Pulm: CTAB A&P. -wheezes, -rales, -rhonchi. Symmetrical chest rise. No increase work of breathing. No respiratory distress. Cardiac: RRR, -mrg. Radial pulses intact and symmetrical. Chest/Back: generalized pain that is worsened by palpation Abdominal: soft, non-tender, non-distended, BS x 4 Extremities: generalized pain that is worsened by palpation Results & Data Results & Data ([facility]) Vital Signs (Past 12 Hours) Vital Signs Temp Pulse Resp BP Pulse Ox O2 Del Method 04/03/22 20:45 36.9 C 84 18 93/54 L 99 Room Air Laboratory Results 04/04/22 04/04/22 Range/Units 07:50 07:50 WBC 4.36 L (4.8-10.8) K/ul RBC 2.48 L (4.20-5.40) M/uL Hgb 9.3 L (12.0-16.0) g/dl Hct 26.1 L (37.0-47.0) % MCV 105.2 H (80.0-100.0) fL MCH 37.5 H (25.0-34.0) pg MCHC 35.6 (32.0-36.0) g/dL RDW Std Deviation 74.0 H (36.4-46.3) fL RDW Coeff of Nando 19.4 H (11.5-14.5) % Plt Count 204 (130-400) K/uL MPV 9.4 (9.4-12.4) fL Absolute Nucleated RBC 0.03 (0-0.12) K/uL Nucleated RBC % (auto) 0.7 % Sodium 134 L (136-145) mmol/L Potassium 4.4 (3.5-5.1) mmol/L Chloride 101 (98-107) mmol/L Carbon Dioxide 28 (21-32) mmol/L Anion Gap 5 (3-11) BUN 8 (6-23) mg/dl Creatinine 0.46 L (0.6-1.2) mg/dl Est Cr Clr Drug Dosing 185.0 ml/min Est GFR ( Amer) > 150.0 ml/min Est GFR (Non-Af Amer) 140.2 ml/min BUN/Creatinine Ratio 17.4 (10-20) Glucose 94 (70-99(Fasting)) mg/dl Calcium 9.4 (8.5-10.1) mg/dl Magnesium 2.0 (1.7-2.4) mg/dl Resident Activity Tracking Resident Involvement: Resident Care Provided Care Provided: Adult [facility]
[2022-04-04 08:13] LABS: Hematocrit (blood only) 26.1 % (37.0-47.0); Hemoglobin 9.3 g/dl (12.0-16.0); Mean Corpuscular Hemoglobin 37.5 pg (25.0-34.0); Mean Corpuscular Hgb Conc 35.6 g/dL (32.0-36.0); Mean Corpuscular Volume 105.2 fL (80.0-100.0); Mean Platelet Volume 9.4 fL (9.4-12.4); Nucleated RBC # (auto) 0.03 K/uL (0-0.12); Nucleated RBC % (auto) 0.7 %; Platelet Count 204 K/uL (130-400); RDW Coefficient of Variation 19.4 % (11.5-14.5); Red Blood Count 2.48 M/uL (4.20-5.40); White Blood Count 4.36 K/ul (4.8-10.8)
[2022-04-04 08:38] LABS: Anion Gap 5 (3-11); Calcium 9.4 mg/dl (8.5-10.1); Carbon Dioxide 28 mmol/L (21-32); Chloride 101 mmol/L (98-107); Potassium 4.4 mmol/L (3.5-5.1); Sodium 134 mmol/L (136-145)
[2022-04-04 08:43] LABS: BUN Creatinine Ratio 17.4 (10-20); Blood Urea Nitrogen 8 mg/dl (6-23); Est GFR (African American) > 150.0 ml/min; Est GFR (Non-African American) 140.2 ml/min; Glucose 94 mg/dl (70-99(Fasting))
[2022-04-04] MEDS: fentaNYL 12 MCG/HR TDSY TD SCH (10:13)
[2022-04-04] MEDS: ASCORBIC ACID 500 MG TAB PO SCH ×2 (10:14→18:15)
[2022-04-04] MEDS: DICLOFENAC SOD 1% GEL 100 GM TUBE EXT SCH ×4 (10:14→21:54)
[2022-04-04] MEDS: ASPIRIN 81 MG ECTAB PO SCH ×2 (10:15→21:56)
[2022-04-04] MEDS: DOCUSATE SODIUM 100 MG CAP PO SCH ×2 (10:15→21:55)
[2022-04-04] MEDS: FAMOTIDINE 20 MG TAB PO SCH ×2 (10:15→21:55)
[2022-04-04] MEDS: ADVANCED PROBIOTIC 1250 MG CAPSULE PO SCH (10:15)
[2022-04-04] MEDS: LIDOCAINE 5% 1 PATCH TD SCH ×2 (10:16→10:17)
[2022-04-04] MEDS: HYDROXYUREA 500 MG CAP PO SCH ×2 (10:16→21:53)
[2022-04-04] MEDS: MAGNESIUM HYDROXIDE SUSP 30 ML UDC PO SCH ×4 (10:17→21:54)
[2022-04-04] MEDS: MULTIVITAMIN TAB PO SCH (10:18)
[2022-04-04] MEDS: MECLIZINE HCL 25 MG TAB PO SCH ×3 (10:18→21:56)
[2022-04-04] MEDS: MAGNESIUM OXIDE 400 MG TAB PO SCH ×2 (10:18→18:15)
[2022-04-04] MEDS: NORGESTIMATE/ETHINYL ESTRAD 0.25/0.035MG DSPK PO SCH (10:19)
[2022-04-04] MEDS: MoRPHine SULFATE PCA 30 MG/30 ML IV PRN ×2 (12:08→21:52)
[2022-04-04] MEDS: SODIUM CHLORIDE 0.9% 1000ML 1,000 ML IV SCH (14:38)
--- NOTE | 2022-04-04 20:43 | Billing Data ---
Date of Service April 04, 2022 Coding Level of Care Code 55597 SUB INP/OBS CARE 3MIN
[2022-04-04] MEDS: MIRTAZAPINE TAB 15 MG TAB PO SCH (21:54)
[2022-04-04] MEDS: SENNA 8.6 MG TAB PO SCH (21:55)
[2022-04-04] MEDS: FOLIC ACID 1 MG TAB PO SCH (21:56)
[2022-04-05] MEDS: SODIUM CHLORIDE 0.45 % 1,000 ML IV SCH ×3 (01:40→22:15)
[2022-04-05] MEDS: ACETAMINOPHEN 500 MG TAB PO SCH ×3 (06:00→22:10)
[2022-04-05] MEDS: diphenhydrAMINE 50 MG/ML VIAL IV PRN ×3 (06:01→22:09)
[2022-04-05] MEDS: CHECK fentaNYL PATCH PLACEMENT SCH ×2 (08:06→16:34)
[2022-04-05] MEDS: MECLIZINE HCL 25 MG TAB PO SCH ×3 (09:35→22:11)
[2022-04-05] MEDS: ADVANCED PROBIOTIC 1250 MG CAPSULE PO SCH (09:35)
[2022-04-05] MEDS: ASPIRIN 81 MG ECTAB PO SCH ×2 (09:35→22:10)
[2022-04-05] MEDS: FAMOTIDINE 20 MG TAB PO SCH ×2 (09:36→22:10)
[2022-04-05] MEDS: DICLOFENAC SOD 1% GEL 100 GM TUBE EXT SCH ×4 (09:36→22:14)
[2022-04-05] MEDS: DOCUSATE SODIUM 100 MG CAP PO SCH ×2 (09:36→22:11)
[2022-04-05] MEDS: ASCORBIC ACID 500 MG TAB PO SCH ×2 (09:36→16:34)
[2022-04-05] MEDS: MULTIVITAMIN TAB PO SCH (09:36)
[2022-04-05] MEDS: MAGNESIUM OXIDE 400 MG TAB PO SCH ×2 (09:37→22:11)
[2022-04-05] MEDS: NORGESTIMATE/ETHINYL ESTRAD 0.25/0.035MG DSPK PO SCH (09:37)
[2022-04-05] MEDS: HYDROXYUREA 500 MG CAP PO SCH ×2 (09:38→22:17)
[2022-04-05] MEDS: MAGNESIUM HYDROXIDE SUSP 30 ML UDC PO SCH ×4 (09:39→22:10)
[2022-04-05] MEDS: LIDOCAINE 5% 1 PATCH TD SCH (09:39)
[2022-04-05] MEDS: SODIUM CHLORIDE 0.9% 1000ML 1,000 ML IV SCH (10:00)
[2022-04-05] MEDS ORDERED: KETOROLAC TROMETHAMINE 15 MG/ML VIAL IV ONE (12:04)
[2022-04-05] MEDS: MoRPHine SULFATE PCA 30 MG/30 ML IV PRN ×2 (14:09→22:17)
--- NOTE | 2022-04-05 17:03 | Hospitalist Progress Note ---
Date of Service April 05, 2022 Assessment & Plan (1) History of total left hip arthroplasty: Plan: 21 y/o F with h/o sickle cell disease and extensive h/o hospitalization for sickle cell crisis, as well as h/o AVN of hips now s/p left hip replacement, POD5. Hospitalist service is now primary service for management. Sickle Cell Pain Crisis -overall pain more stable but currently requiring high risk management w IV narcotics (morphine BANQUET CHEF) continue Left lumbar radiculopathy, new on 03/30 - no complaints at this time. outpt f/u s/p Left hip replacement for AVN - see above. follow hip precautions. - ortho following -f/u outpatient in 2-3 weeks -IT band pain - OMT, voltaren gel, resume toradol for now Acute on Chronic Anemia, improved - related to sickle cell. no need for transfusion today (pain overall better than before, hemodynamically stable) Sleep disturbance - Mirtazapine QHS for now- although does cause some degree excess drowsiness - may not be a good extermination supervisor solution but in discussions would like to conitnue for now at least while healing/while inpatient GERD -cont. Pepcid 20mg bid Constipation -secondary to chronic opioid use -cont. mag ox, colace, senokot scheduled -prn miralax, milk of mag, maalox anticipate home soon - once pain under more reliable control (2) Avascular necrosis of bone of hip: (3) Chronic pain: (4) Borderline personality disorder: (5) Avascular necrosis of bone of left hip: Admission and Anticipated Discharge Date Admission Date: March 29, 2022 Subjective L thigh pain again. not as bad as before but worse than yesterday. Otherwise doing okay. Things hopefully home in the next day or 2. Review of Systems Review of Systems: All systems reviewed & are unremarkable except as noted in HPI & below Physical Exam Physical Exam: General she is awake and alert pleasant no distress. HEENT normocephalic atraumatic mucous membranes moist. Breathing unlabored no accessory muscle use good effort. Skin shows no rashes no pallor or icterus. L IT band high tone/tender/decreased ROM - inhibitory pressure/LAS - improved some Results & Data Results & Data ([facility]) Vital Signs (Past 12 Hours) Vital Signs Temp Pulse Pulse Resp BP Pulse Ox O2 Del Method 04/05/22 15:23 98.6 F 69 18 92/59 L 96 Room Air 04/05/22 07:12 98.4 F 75 18 99/65 L 97 Room Air PG Care Time/CCT Total # of Minutes Spent Total Time Spent with Patient: Total time spent is greater than 50% in coordination of care (as documented) at patient's floor/unit and/or counseling patient: Coding Level of Care Code 96897 SUB INP/OBS CARE 3/50MIN Diagnoses History of total left hip arthroplasty Z96.642 Avascular necrosis of bone of hip M87.059 Chronic pain G89.29 Borderline personality disorder F60.3 Avascular necrosis of bone of left hip M87.052
[2022-04-05] MEDS: SENNA 8.6 MG TAB PO SCH (22:10)
[2022-04-05] MEDS: MIRTAZAPINE TAB 15 MG TAB PO SCH (22:11)
[2022-04-05] MEDS: FOLIC ACID 1 MG TAB PO SCH (22:11)
[2022-04-06] MEDS: ACETAMINOPHEN 500 MG TAB PO SCH ×3 (06:05→23:26)
[2022-04-06 06:56] LABS: Hematocrit (blood only) 24.5 % (37.0-47.0); Mean Corpuscular Hemoglobin 38.5 pg (25.0-34.0); Mean Corpuscular Hgb Conc 36.7 g/dL (32.0-36.0); Mean Corpuscular Volume 104.7 fL (80.0-100.0); Mean Platelet Volume 9.8 fL (9.4-12.4); Nucleated RBC # (auto) 0.05 K/uL (0-0.12); Nucleated RBC % (auto) 1.7 %; Platelet Count 240 K/uL (130-400); RDW Coefficient of Variation 19.2 % (11.5-14.5); RDW Standard Deviation 73.2 fL (36.4-46.3); Red Blood Count 2.34 M/uL (4.20-5.40); White Blood Count 2.93 K/ul (4.8-10.8)
[2022-04-06 07:04] LABS: Anion Gap 4 (3-11); Calcium 9.4 mg/dl (8.5-10.1); Carbon Dioxide 28 mmol/L (21-32); Chloride 102 mmol/L (98-107); Potassium 3.9 mmol/L (3.5-5.1); Sodium 134 mmol/L (136-145)
[2022-04-06 07:09] LABS: BUN Creatinine Ratio 20.5 (10-20); Blood Urea Nitrogen 9 mg/dl (6-23); Creatinine Clr Calc Pharmacy 193.4 ml/min; Est GFR (African American) > 150.0 ml/min; Est GFR (Non-African American) 142.3 ml/min; Glucose 125 mg/dl (70-99(Fasting))
--- NOTE | 2022-04-06 08:35 | Progress Notes ---
DATE OF SERVICE: 04/06/2022. SUBJECTIVE: A 21-year-old female, now 10 days out from a left total hip replacement done for AVN. S he looks to be much better today. She really looks comfortable lying in bed and was using her comput er. OBJECTIVE: VITAL SIGNS: Temperature 36.7. Vital signs are stable. PHYSICAL EXAMINATION: Physical examination of the left hip reveals the dressing to be clean, dry and intact. There is no drainage. Thigh is soft and supple. Hip is located. She is neurologically in tact. ASSESSMENT: A 21-year-old female, 10 days out from a left total hip replacement with underlying sick le cell disease. Orthopedically, she is doing fine. She can weight bear as tolerated. Does need to obey hip precautions. She is okay for discharge. Obviously any time from orthopedic standpoint. PLAN: Her deny need to come out in 2-3 weeks. Any orthopedic questions can be directed to me at [phone]. Job ID: [id number]
[2022-04-06] MEDS ORDERED: CALCIUM CARBONATE 500 MG CHEWABLE TAB PO ONE (08:37)
[2022-04-06] MEDS: HYDROXYUREA 500 MG CAP PO SCH ×2 (08:38→23:25)
[2022-04-06] MEDS: SODIUM CHLORIDE 0.45 % 1,000 ML IV SCH ×2 (08:38→18:38)
[2022-04-06] MEDS: FAMOTIDINE 20 MG TAB PO SCH ×2 (08:38→23:25)
[2022-04-06] MEDS: MULTIVITAMIN TAB PO SCH (08:39)
[2022-04-06] MEDS: DOCUSATE SODIUM 100 MG CAP PO SCH ×2 (08:39→23:27)
[2022-04-06] MEDS: NORGESTIMATE/ETHINYL ESTRAD 0.25/0.035MG DSPK PO SCH (08:39)
[2022-04-06] MEDS: ADVANCED PROBIOTIC 1250 MG CAPSULE PO SCH (08:39)
[2022-04-06] MEDS: MAGNESIUM OXIDE 400 MG TAB PO SCH ×2 (08:40→23:26)
[2022-04-06] MEDS: MECLIZINE HCL 25 MG TAB PO SCH ×3 (08:40→23:25)
[2022-04-06] MEDS: MAGNESIUM HYDROXIDE SUSP 30 ML UDC PO SCH ×5 (08:40→23:46)
[2022-04-06] MEDS: ASPIRIN 81 MG ECTAB PO SCH ×2 (08:40→23:26)
[2022-04-06] MEDS: ASCORBIC ACID 500 MG TAB PO SCH ×2 (08:40→17:10)
[2022-04-06] MEDS: LIDOCAINE 5% 1 PATCH TD SCH ×2 (08:41→09:03)
[2022-04-06] MEDS: diphenhydrAMINE 50 MG/ML VIAL IV PRN (08:58)
[2022-04-06] MEDS: CHECK fentaNYL PATCH PLACEMENT SCH ×3 (08:59→17:10)
[2022-04-06] MEDS: DICLOFENAC SOD 1% GEL 100 GM TUBE EXT SCH ×4 (09:03→23:26)
--- NOTE | 2022-04-06 12:08 | Hospitalist Progress Note ---
Date of Service April 06, 2022 Assessment & Plan (1) History of total left hip arthroplasty: Plan: 21 y/o F with h/o sickle cell disease and extensive h/o hospitalization for sickle cell crisis, as well as h/o AVN of hips now s/p left hip replacement, POD5. Hospitalist service is now primary service for management. Sickle Cell Pain Crisis Developing pain crisis with generalized pain suspect due to recent hip replacement. Afebrile. Does have chest pain (along with generalized pain) but without consolidation/infiltrate on several CXRs - lower suspicion for acute chest syndrome. Pain better controlled on [employer] pump. - continue 1/2NSS @100cc/hr - switched [employer] pump from dilaudid to morphine (in attempts to mitigate dizziness/nausea): 2mg every 30 minutes - maintain Fentanyl patch 12mcg q3days - continue daily hydroxyurea and folate - trend CBC Left lumbar radiculopathy, new on 03/30 - no complaints at this time. outpt f/u s/p Left hip replacement for AVN - see above. follow hip precautions. - ortho following -f/u outpatient in 2-3 weeks -IT band pain - OMT, voltaren gel, resume toradol for now Acute on Chronic Anemia, improved - related to sickle cell. no need for transfusion today (pain overall better than before, hemodynamically stable) Sleep disturbance - Mirtazapine QHS for now- although does cause some degree excess drowsiness -may not be a good detention solution but in discussions would like to continue for now at least while healing/while inpatient GERD -cont. Pepcid 20mg bid Constipation -secondary to chronic opioid use -cont. mag ox, colace, senokot scheduled -prn miralax, milk of mag, maalox DVT ppx: ASA 81mg BID per ortho Diet: Regular, 1/2NSS @ 100 cc/h Dispo: Telemetry, anticipate home soon - once pain under more reliable control CODE STATUS: FULL (2) Avascular necrosis of bone of hip: (3) Chronic pain: (4) Borderline personality disorder: (5) Avascular necrosis of bone of left hip: Admission and Anticipated Discharge Date Admission Date: March 29, 2022 Supervising Physician Co-Signing Physician Notes I personally examined the patient and verified all amaro points of history and exam, discussed case, and agree with decision making with Dr Myles pain slowly doing better. extensive discussions on R hip and how to distinguish biomechanical pain from arthritic painand that right now having just had a left total hip, its definitely too soon to really have a referent about anything with her right hip because it is changing her gait and compensation. Vitals noted, in general she is awake and alert pleasant no distress. HEENT normocephalic atraumatic mucous membranes moist. Breathing unlabored no accessory muscle use good effort. Skin shows no rashes no pallor or icterus. Neuro without focal deficits. Sickle cell acute pain crisisnot surprising given her fairly brittle nature with sickle cell, having just had total hip replacement. Pain overall controlled on morphine PCAcontinue in hospital due to high risk management with IV narcotics. Left thigh pain appears to be largely IT band, not surprising given hip replacement/etc. improving with Voltaren gel and previous OMT. Leg length discrepancy seems to be mild if at all present, discussed at length, may not actually cause her any problems, certainly can easily do a small heel lift in her right if it does become a problem (has some degree of right posterior hip/buttock pain that would be indicative of a possible need for heel lift, but right now given that she is so acutely recovering from her hip surgery, we discussed that heel lift/OMT for her right pelvic stabilizing musculature is likely a bit premature, given that simply with time/healing/PT the whole process may fix itself). Continue to follow. Improving. Hopefully home soon Hip AVNstatus post ASIF Subjective Still some left thigh pain. [place] yesterday was a bit worse than day before and wants to see how things go today. Feeling a bit queasy to her stomach -- seems to be some nausea and indigestion. No f/c, SOB, diarrhea, cough, GARCIA, dizziness. Review of Systems Review of Systems: All systems reviewed & are unremarkable except as noted in Subjective Physical Exam Physical Exam: General: A&Ox3. NAD. Cooperative. HEENT: Atraumatic, normocephalic. Pulm: CTAB A&P. -wheezes, -rales, -rhonchi. Symmetrical chest rise. No increase work of breathing. No respiratory distress. Cardiac: RRR, -mrg. Radial pulses intact and symmetrical. Chest/Back: generalized pain that is worsened by palpation Abdominal: soft, non-tender, non-distended, BS x 4 Extremities: generalized pain that is worsened by palpation Results & Data Results & Data ([facility]) Vital Signs (Past 12 Hours) Vital Signs Temp Pulse Resp BP Pulse Ox O2 Del Method 04/06/22 11:00 36.9 C 76 18 118/72 99 Room Air 04/06/22 07:48 36.7 C 74 18 110/72 98 Room Air Resident Activity Tracking Resident Involvement: Resident Care Provided Care Provided: Adult Hospital Medicine
[2022-04-06] MEDS: SODIUM CHLORIDE 0.9% 1000ML 1,000 ML IV SCH (13:22)
[2022-04-06] MEDS: MoRPHine SULFATE PCA 30 MG/30 ML IV PRN ×2 (13:24→23:36)
[2022-04-06] MEDS: diphenhydrAMINE Capsule 25 MG CAP PO PRN (17:10)
--- NOTE | 2022-04-06 17:44 | Billing Data ---
Date of Service April 06, 2022 Coding Level of Care Code 65115 SUB INP/OBS CARE MIN
[2022-04-06] MEDS: MIRTAZAPINE TAB 15 MG TAB PO SCH (23:23)
[2022-04-06] MEDS: FOLIC ACID 1 MG TAB PO SCH (23:25)
[2022-04-06] MEDS: SENNA 8.6 MG TAB PO SCH (23:27)
[2022-04-07] MEDS: CHECK fentaNYL PATCH PLACEMENT SCH ×4 (01:20→23:22)
[2022-04-07] MEDS: diphenhydrAMINE Capsule 25 MG CAP PO PRN ×2 (04:15→18:10)
[2022-04-07] MEDS: SODIUM CHLORIDE 0.45 % 1,000 ML IV SCH (04:20)
[2022-04-07] MEDS: ACETAMINOPHEN 500 MG TAB PO SCH ×3 (05:09→21:42)
--- NOTE | 2022-04-07 07:46 | Hospitalist Progress Note ---
Date of Service April 07, 2022 Assessment & Plan (1) History of total left hip arthroplasty: Plan: 21 y/o F with h/o sickle cell disease and extensive h/o hospitalization for sickle cell crisis, as well as h/o AVN of hips now s/p left hip replacement, POD5. Hospitalist service is now primary service for management. Sickle Cell Pain Crisis Developing pain crisis with generalized pain suspect due to recent hip replacement. Afebrile. Does have chest pain (along with generalized pain) but without consolidation/infiltrate on several CXRs - lower suspicion for acute chest syndrome. Pain better controlled on [employer]PER[employer] pump. - switched [employer]PER[employer]OR pump from dilaudid to morphine (in attempts to mitigate dizziness/nausea): 2mg every 30 minutes - maintain Fentanyl patch 12mcg q3days - continue daily hydroxyurea and folate - trend CBC Left lumbar radiculopathy, new on 03/30 - no complaints at this time. outpt f/u s/p Left hip replacement for AVN - see above. follow hip precautions. - ortho following -f/u outpatient in 2-3 weeks -IT band pain - OMT, voltaren gel, resume toradol for now Acute on Chronic Anemia, improved - related to sickle cell. no need for transfusion today (pain overall better than before, hemodynamically stable) Sleep disturbance - Mirtazapine QHS for now- although does cause some degree excess drowsiness -may not be a good intermediate teacher solution but in discussions would like to continue for now at least while healing/while inpatient GERD -cont. Pepcid 20mg bid Constipation -secondary to chronic opioid use -cont. mag ox, colace, senokot scheduled -prn miralax, milk of mag, maalox DVT ppx: ASA 81mg BID per ortho Diet: Regular Dispo: Telemetry, anticipate home soon - once pain under more reliable control CODE STATUS: FULL (2) Avascular necrosis of bone of hip: (3) Chronic pain: (4) Borderline personality disorder: (5) Avascular necrosis of bone of left hip: Admission and Anticipated Discharge Date Admission Date: March 29, 2022 Supervising Physician Co-Signing Physician Notes I personally examined the patient and verified all amaro points of history and exam, discussed case, and agree with decision making with Dr Myles Pain a bit worse all over today. Nothing focaldiffuse. She notes that today was the day of change of her fentanyl patch, and this frequently happens to her at home as well. Does not want to try tightening the fentanyl patch to every 48 hours instead of every 72. No focal symptoms to suggest cause of exacerbationno sore throat/congestion, no dysuria, no focal symptoms at all. Vitals noted, in general she is awake and alert pleasant no distress. HEENT normocephalic atraumatic mucous membranes moist. Breathing unlabored no accessory muscle use good effort. Skin shows no rashes no pallor or icterus. Neuro without focal deficits. Sickle cell acute pain crisisnot surprising given her fairly brittle nature with sickle cell, having just had total hip replacement. Pain overall controlled on morphine PCAcontinue in hospital due to high risk management with IV narcotics. Left thigh pain appears to be largely IT band, not surprising given hip replacement/etc. improving with Voltaren gel and previous OMT. Leg length discrepancy seems to be mild if at all present, discussed at length, may not actually cause her any problems, certainly can easily do a small heel lift in her right if it does become a problem (has some degree of right posterior hip/buttock pain that would be indicative of a possible need for heel lift, but right now given that she is so acutely recovering from her hip surgery, we discussed that heel lift/OMT for her right pelvic stabilizing musculature is likely a bit premature, given that simply with time/healing/PT the whole process may fix itself). Minor setback today due to time to change fentanyl patch, unfortunate, but overall on track to be able to get home soon. Hip AVNstatus post ASIF Subjective Sleeping comfortably this AM and did not wake up to gentle stimulation. Review of Systems Review of Systems: Other (Patient sleeping, not awoken -- see attending documentation) Physical Exam Physical Exam: General: A&Ox3. NAD. Cooperative. HEENT: Atraumatic, normocephalic. Pulm: CTAB A&P. -wheezes, -rales, -rhonchi. Symmetrical chest rise. No increase work of breathing. No respiratory distress. Cardiac: RRR, -mrg. Radial pulses intact and symmetrical. Chest/Back: generalized pain that is worsened by palpation Abdominal: soft, non-tender, non-distended, BS x 4 Extremities: generalized pain that is worsened by palpation Results & Data Results & Data ([facility]) Vital Signs (Past 12 Hours) Vital Signs Temp Pulse Resp BP Pulse Ox O2 Del Method 04/06/22 23:15 Room Air 04/06/22 22:21 37.1 C 76 16 103/66 99 Room Air Resident Activity Tracking Resident Involvement: Resident Care Provided Care Provided: Adult Hospital Medicine
[2022-04-07] MEDS: LIDOCAINE 5% 1 PATCH TD SCH ×2 (08:54→08:55)
[2022-04-07] MEDS: FAMOTIDINE 20 MG TAB PO SCH ×2 (08:55→21:42)
[2022-04-07] MEDS: ADVANCED PROBIOTIC 1250 MG CAPSULE PO SCH (08:56)
[2022-04-07] MEDS: NORGESTIMATE/ETHINYL ESTRAD 0.25/0.035MG DSPK PO SCH (08:56)
[2022-04-07] MEDS: ASCORBIC ACID 500 MG TAB PO SCH ×2 (08:56→18:09)
[2022-04-07] MEDS: MAGNESIUM OXIDE 400 MG TAB PO SCH ×2 (08:57→21:42)
[2022-04-07] MEDS: MECLIZINE HCL 25 MG TAB PO SCH ×3 (08:57→21:42)
[2022-04-07] MEDS: MAGNESIUM HYDROXIDE SUSP 30 ML UDC PO SCH ×4 (08:57→21:42)
[2022-04-07] MEDS: MULTIVITAMIN TAB PO SCH (08:57)
[2022-04-07] MEDS: HYDROXYUREA 500 MG CAP PO SCH ×2 (08:58→21:45)
[2022-04-07] MEDS: ASPIRIN 81 MG ECTAB PO SCH ×2 (08:58→21:42)
[2022-04-07] MEDS: DICLOFENAC SOD 1% GEL 100 GM TUBE EXT SCH ×4 (08:58→21:45)
[2022-04-07] MEDS: DOCUSATE SODIUM 100 MG CAP PO SCH ×2 (08:59→21:42)
[2022-04-07] MEDS: fentaNYL 12 MCG/HR TDSY TD SCH (09:00)
[2022-04-07] MEDS: MoRPHine SULFATE PCA 30 MG/30 ML IV PRN ×2 (11:39→20:22)
[2022-04-07] MEDS: SODIUM CHLORIDE 0.9% 1000ML 1,000 ML IV SCH (11:45)
--- NOTE | 2022-04-07 15:41 | Billing Data ---
Date of Service April 07, 2022 Coding Level of Care Code 40552 SUB INP/OBS CARE MIN
[2022-04-07] MEDS: SENNA 8.6 MG TAB PO SCH (21:41)
[2022-04-07] MEDS: MIRTAZAPINE TAB 15 MG TAB PO SCH (21:42)
[2022-04-07] MEDS: FOLIC ACID 1 MG TAB PO SCH (21:42)
[2022-04-07] MEDS: KETOROLAC TROMETHAMINE 15 MG/ML VIAL IV PRN (21:49)
[2022-04-08] MEDS: ACETAMINOPHEN 500 MG TAB PO SCH ×3 (06:03→21:29)
--- NOTE | 2022-04-08 07:03 | Hospitalist Progress Note ---
Date of Service April 08, 2022 Assessment & Plan (1) History of total left hip arthroplasty: Plan: 21 y/o F with h/o sickle cell disease and extensive h/o hospitalization for sickle cell crisis, as well as h/o AVN of hips now s/p left hip replacement, POD5. Hospitalist service is now primary service for management. Sickle Cell Pain Crisis Developing pain crisis with generalized pain suspect due to recent hip replacement. Afebrile. Does have chest pain (along with generalized pain) but without consolidation/infiltrate on several CXRs - lower suspicion for acute chest syndrome. Pain better controlled on SLAB MILLER OPERATOR pump. - Previously switched SLAB MILLER OPERATOR pump from dilaudid to morphine (in attempts to mitigate dizziness/nausea): 2mg every 30 minutes; will transition off SLAB MILLER OPERATOR and back to home regimen (fentanyl patch + PO morphine 15mg tid prn). +IV Dilaudid for breakthrough. - maintain Fentanyl patch 12mcg q3days - continue daily hydroxyurea and folate - trend CBC Left lumbar radiculopathy, new on 03/30 - no complaints at this time. outpt f/u s/p Left hip replacement for AVN - see above. follow hip precautions. - ortho following -f/u outpatient in 2-3 weeks -IT band pain - OMT, voltaren gel, toradol for now Acute on Chronic Anemia, improved - related to sickle cell, stable >9 Sleep disturbance - Mirtazapine qhs for now- although does cause some degree excess drowsiness - may not be a good forensic examiner solution but in discussions would like to continue for now at least while healing/while inpatient GERD -cont. Pepcid 20mg bid Constipation -secondary to chronic opioid use -cont. mag ox, colace, senokot scheduled -prn miralax, milk of mag, maalox DVT ppx: ASA 81mg BID per ortho Diet: Regular Dispo: med surg Code Status: Full (2) Avascular necrosis of bone of hip: (3) Chronic pain: (4) Borderline personality disorder: (5) Avascular necrosis of bone of left hip: Admission and Anticipated Discharge Date Admission Date: March 29, 2022 Supervising Physician Co-Signing Physician Notes Attending attestation Pt seen and examined in concert with Dr. Bailey. In agreement with the documented findings as noted in the resident documentation with any exceptions or additions as noted here. Reporting feeling better compared to yesterday, would like to trial decreased pain medication with goal of efficient discharge. Patient declines examination today when asked. Sickle cell disease with acute on chronic pain - after review of options including SLAB MILLER OPERATOR titer, equivalent dosing and return to baseline regimen, patient opts for the latter with orders for breakthrough medication if needed. Will continue to monitor with low threshold for transition to SLAB MILLER OPERATOR at lower dose vs. addition of breakthrough. Will d/c IVF as no apparent impact on pain, stable counts. Else see resident documentation as noted. Subjective Pt seen at bedside this morning. Feeling better than yesterday. Would like to come off SLAB MILLER OPERATOR. Review of Systems Review of Systems: All systems reviewed & are unremarkable except as noted in HPI & below Physical Exam Physical Exam: General: AOx3. NAD. Cooperative. HEENT: Atraumatic, normocephalic. Pulm: CTAB A&P. -wheezes, -rales, -rhonchi. Symmetrical chest rise. No increase work of breathing. No respiratory distress. Cardiac: RRR, -mrg. Radial pulses intact and symmetrical. Abdominal: soft, non-tender, non-distended, BS x 4 Results & Data Results & Data ([facility]) Vital Signs (Past 12 Hours) Vital Signs Temp Pulse Resp BP Pulse Ox O2 Del Method 04/08/22 03:00 36.9 C 69 18 92/57 L 98 Room Air 04/07/22 23:00 37.0 C 76 16 92/56 L 98 Room Air Laboratory Results 04/08/22 04/08/22 Range/Units 08:36 08:36 WBC 4.19 L (4.8-10.8) K/ul RBC 2.47 L (4.20-5.40) M/uL Hgb 9.4 L (12.0-16.0) g/dl Hct 25.6 L (37.0-47.0) % MCV 103.6 H (80.0-100.0) fL MCH 38.1 H (25.0-34.0) pg MCHC 36.7 H (32.0-36.0) g/dL RDW Std Deviation 72.7 H (36.4-46.3) fL RDW Coeff of Nando 19.4 H (11.5-14.5) % Plt Count 231 (130-400) K/uL MPV 10.5 (9.4-12.4) fL Absolute Nucleated RBC 0.20 H (0-0.12) K/uL Nucleated RBC % (auto) 4.8 % Sodium 138 (136-145) mmol/L Potassium 5.0 (3.5-5.1) mmol/L Chloride 106 (98-107) mmol/L Carbon Dioxide 23 (21-32) mmol/L Anion Gap 9 (3-11) BUN 8 (6-23) mg/dl Creatinine 0.47 L (0.6-1.2) mg/dl Est Cr Clr Drug Dosing 181.0 ml/min Est GFR ( Amer) > 150.0 ml/min Est GFR (Non-Af Amer) 139.2 ml/min BUN/Creatinine Ratio 17.0 (10-20) Glucose 89 (70-99(Fasting)) mg/dl Calcium 9.8 (8.5-10.1) mg/dl Magnesium 2.1 (1.7-2.4) mg/dl Resident Activity Tracking Resident Involvement: Resident Care Provided Care Provided: Adult [facility] Medicine
[2022-04-08] MEDS: DOCUSATE SODIUM 100 MG CAP PO SCH ×2 (08:26→21:29)
[2022-04-08] MEDS: LIDOCAINE 5% 1 PATCH TD SCH ×2 (08:26→08:29)
[2022-04-08] MEDS: ADVANCED PROBIOTIC 1250 MG CAPSULE PO SCH (08:26)
[2022-04-08] MEDS: MECLIZINE HCL 25 MG TAB PO SCH ×3 (08:27→21:29)
[2022-04-08] MEDS: HYDROXYUREA 500 MG CAP PO SCH ×2 (08:27→21:31)
[2022-04-08] MEDS: MULTIVITAMIN TAB PO SCH (08:27)
[2022-04-08] MEDS: ASCORBIC ACID 500 MG TAB PO SCH ×2 (08:27→15:52)
[2022-04-08] MEDS: MAGNESIUM OXIDE 400 MG TAB PO SCH ×2 (08:27→21:28)
[2022-04-08] MEDS: ASPIRIN 81 MG ECTAB PO SCH ×2 (08:28→21:29)
[2022-04-08] MEDS: DICLOFENAC SOD 1% GEL 100 GM TUBE EXT SCH ×4 (08:28→21:40)
[2022-04-08] MEDS: FAMOTIDINE 20 MG TAB PO SCH ×2 (08:28→21:29)
[2022-04-08] MEDS: MAGNESIUM HYDROXIDE SUSP 30 ML UDC PO SCH ×4 (08:29→21:28)
[2022-04-08] MEDS: CHECK fentaNYL PATCH PLACEMENT SCH ×3 (08:29→23:09)
[2022-04-08] MEDS: NORGESTIMATE/ETHINYL ESTRAD 0.25/0.035MG DSPK PO SCH (08:29)
[2022-04-08 09:43] LABS: Hematocrit (blood only) 25.6 % (37.0-47.0); Hemoglobin 9.4 g/dl (12.0-16.0); Mean Corpuscular Hemoglobin 38.1 pg (25.0-34.0); Mean Corpuscular Hgb Conc 36.7 g/dL (32.0-36.0); Mean Corpuscular Volume 103.6 fL (80.0-100.0); Mean Platelet Volume 10.5 fL (9.4-12.4); Nucleated RBC % (auto) 4.8 %; Platelet Count 231 K/uL (130-400); RDW Coefficient of Variation 19.4 % (11.5-14.5); RDW Standard Deviation 72.7 fL (36.4-46.3); Red Blood Count 2.47 M/uL (4.20-5.40); White Blood Count 4.19 K/ul (4.8-10.8)
[2022-04-08 09:45] LABS: Anion Gap 9 (3-11); Blood Urea Nitrogen 8 mg/dl (6-23); Calcium 9.8 mg/dl (8.5-10.1); Carbon Dioxide 23 mmol/L (21-32); Chloride 106 mmol/L (98-107); Est GFR (African American) > 150.0 ml/min; Est GFR (Non-African American) 139.2 ml/min; Glucose 89 mg/dl (70-99(Fasting)); Magnesium 2.1 mg/dl (1.7-2.4); Sodium 138 mmol/L (136-145)
[2022-04-08] MEDS: SODIUM CHLORIDE 0.9% 1000ML 1,000 ML IV SCH (12:09)
[2022-04-08] MEDS: MoRPHine SULFATE IR 15 MG TAB (IMMEDIATE RELEASE) PO PRN ×2 (15:51→23:36)
[2022-04-08] MEDS: HYDROmorphone INJ 1 MG/ML SYRINGE IV PRN (20:13)
[2022-04-08] MEDS: FOLIC ACID 1 MG TAB PO SCH (21:28)
[2022-04-08] MEDS: MIRTAZAPINE TAB 15 MG TAB PO SCH (21:28)
[2022-04-08] MEDS: SENNA 8.6 MG TAB PO SCH (21:29)
[2022-04-08] MEDS: diphenhydrAMINE Capsule 25 MG CAP PO PRN (23:36)
[2022-04-09] MEDS: KETOROLAC TROMETHAMINE 15 MG/ML VIAL IV PRN ×2 (01:30→15:29)
[2022-04-09] MEDS: ACETAMINOPHEN 500 MG TAB PO SCH ×2 (05:58→15:04)
--- NOTE | 2022-04-09 07:02 | Hospitalist Progress Note ---
Date of Service April 09, 2022 Assessment & Plan (1) History of total left hip arthroplasty: Plan: 21 y/o F with h/o sickle cell disease and extensive h/o hospitalization for sickle cell crisis, as well as h/o AVN of hips now s/p left hip replacement, POD5. Hospitalist service is now primary service for management. Sickle Cell Pain Crisis Developing pain crisis with generalized pain suspect due to recent hip replacement. Afebrile. Does have chest pain (along with generalized pain) but without consolidation/infiltrate on several CXRs - lower suspicion for acute chest syndrome. Pain better controlled on [employer] pump. - Previously switched [employer] pump from dilaudid to morphine (in attempts to mitigate dizziness/nausea): 2mg every 30 minutes; will transition off [employer] and back to home regimen (fentanyl patch + PO morphine 15mg tid prn). +IV Dilaudid for breakthrough. - maintain Fentanyl patch 12mcg q3days - continue daily hydroxyurea and folate - trend CBC Left lumbar radiculopathy, new on 03/30 - no complaints at this time. outpt f/u s/p Left hip replacement for AVN - see above. follow hip precautions. - ortho following -f/u outpatient in 2-3 weeks -IT band pain - OMT, voltaren gel, toradol for now Acute on Chronic Anemia, improved - related to sickle cell, stable >9 Sleep disturbance - Mirtazapine qhs for now- although does cause some degree excess drowsiness - may not be a good termite inspector solution but in discussions would like to continue for now at least while healing/while inpatient GERD -cont. Pepcid 20mg bid Constipation -secondary to chronic opioid use -cont. mag ox, colace, senokot scheduled -prn miralax, milk of mag, maalox DVT ppx: ASA 81mg BID per ortho Diet: Regular Dispo: med surg Code Status: Full (2) Avascular necrosis of bone of hip: (3) Chronic pain: (4) Borderline personality disorder: (5) Avascular necrosis of bone of left hip: Admission and Anticipated Discharge Date Admission Date: March 29, 2022 Subjective Pt seen at bedside this morning. Feeling better than yesterday. Would like to come off [employer]. Review of Systems Review of Systems: All systems reviewed & are unremarkable except as noted in HPI & below Physical Exam Physical Exam: General: AOx3. NAD. Cooperative. HEENT: Atraumatic, normocephalic. Pulm: CTAB A&P. -wheezes, -rales, -rhonchi. Symmetrical chest rise. No increase work of breathing. No respiratory distress. Cardiac: RRR, -mrg. Radial pulses intact and symmetrical. Abdominal: soft, non-tender, non-distended, BS x 4 Results & Data Results & Data ([facility] [place]) Vital Signs (Past 12 Hours) Vital Signs Temp Pulse Resp BP Pulse Ox O2 Del Method 04/09/22 01:00 36.6 C 80 16 95/58 L 99 Room Air 04/08/22 21:25 36.9 C 89 16 98/65 L 97 Room Air
[2022-04-09] MEDS: HYDROXYUREA 500 MG CAP PO SCH (08:28)
[2022-04-09] MEDS: CHECK fentaNYL PATCH PLACEMENT SCH ×2 (08:28→15:17)
[2022-04-09] MEDS: ASPIRIN 81 MG ECTAB PO SCH (08:29)
[2022-04-09] MEDS: MULTIVITAMIN TAB PO SCH (08:29)
[2022-04-09] MEDS: DOCUSATE SODIUM 100 MG CAP PO SCH (08:29)
[2022-04-09] MEDS: FAMOTIDINE 20 MG TAB PO SCH (08:29)
[2022-04-09] MEDS: MAGNESIUM OXIDE 400 MG TAB PO SCH (08:30)
[2022-04-09] MEDS: MECLIZINE HCL 25 MG TAB PO SCH ×2 (08:30→12:57)
[2022-04-09] MEDS: MAGNESIUM HYDROXIDE SUSP 30 ML UDC PO SCH ×3 (08:31→16:19)
[2022-04-09] MEDS: ADVANCED PROBIOTIC 1250 MG CAPSULE PO SCH (08:31)
[2022-04-09] MEDS: LIDOCAINE 5% 1 PATCH TD SCH ×2 (08:32)
[2022-04-09] MEDS: NORGESTIMATE/ETHINYL ESTRAD 0.25/0.035MG DSPK PO SCH (08:33)
[2022-04-09] MEDS: DICLOFENAC SOD 1% GEL 100 GM TUBE EXT SCH ×3 (08:33→16:19)
[2022-04-09] MEDS: ASCORBIC ACID 500 MG TAB PO SCH ×2 (08:34→16:19)
[2022-04-09] MEDS: MoRPHine SULFATE IR 15 MG TAB (IMMEDIATE RELEASE) PO PRN (11:08)
--- NOTE | 2022-04-09 12:15 | Discharge Summary ---
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 Over the years her pain continued to get worse especially in the left hip with obvious AVN and collapse of the femoral head. She failed all conservative measures. Post op she is doing well. Hip pain controlled with duramorph. No chest pain, shortness of breath. Principal Diagnosis Left Hip Replacement, Sickle Cell Pain Crisis Discharge Exam General: AOx3. NAD. Cooperative. HEENT: Atraumatic, normocephalic. Pulm: CTAB A&P. -wheezes, -rales, -rhonchi. Symmetrical chest rise. No increase work of breathing. No respiratory distress. Cardiac: RRR, -mrg. Radial pulses intact and symmetrical. Abdominal: soft, non-tender, non-distended, BS x4 Discharge Data Allergies Allergy/AdvReac Type Severity Reaction Status Date / Time adhesive Allergy Intermediate Blister Verified 03/27/22 06:30 Consultations 03/27/22 13:33 Consult Internal Medicine Routine Consult Pain Management Routine Procedures Performed Operation Date: 03/27/22 08:50 Actual Procedures p Left Total Hip Arthroplasty(Left) - Jp Castrejon MD Ordered Studies Laboratory Results WBC 4.19 K/ul (4.8-10.8) L 04/08/22 08:36 RBC 2.47 M/uL (4.20-5.40) L 04/08/22 08:36 Hgb 9.4 g/dl (12.0-16.0) L 04/08/22 08:36 Hct 25.6 % (37.0-47.0) L 04/08/22 08:36 MCV 103.6 fL (80.0-100.0) H 04/08/22 08:36 MCH 38.1 pg (25.0-34.0) H 04/08/22 08:36 MCHC 36.7 g/dL (32.0-36.0) H 04/08/22 08:36 RDW Std Deviation 72.7 fL (36.4-46.3) H 04/08/22 08:36 RDW Coeff of Nando 19.4 % (11.5-14.5) H 04/08/22 08:36 Plt Count 231 K/uL (130-400) 04/08/22 08:36 MPV 10.5 fL (9.4-12.4) 04/08/22 08:36 Immature Gran % (Auto) 0.2 % 04/03/22 09:01 Neut % (Auto) 35.9 % 04/03/22 09:01 Lymph % (Auto) 56.0 % 04/03/22 09:01 [place] % (Auto) 5.9 % 04/03/22 09:01 Eos % (Auto) 1.5 % 04/03/22 09:01 Baso % (Auto) 0.5 % 04/03/22 09:01 Reticulocyte % (Auto) 3.9 % (0.5-2.0) H 04/01/22 08:10 Neut # (Auto) 1.46 K/uL (1.40-6.50) 04/03/22 09:01 Lymph # (Auto) 2.28 K/uL (1.2-3.4) 04/03/22 09:01 [place] # (Auto) 0.24 K/uL (0.11-0.59) 04/03/22 09:01 Eos # (Auto) 0.06 K/uL (0-0.50) 04/03/22 09:01 Baso # (Auto) 0.02 K/uL (0-0.2) 04/03/22 09:01 Reticulocyte # 0.09 10^6/uL (0.02-0.10) 04/01/22 08:10 Immature Gran # (Auto) 0.01 K/uL (0.01-0.20) 04/03/22 09:01 Absolute Nucleated RBC 0.20 K/uL (0-0.12) H 04/08/22 08:36 Nucleated RBC % (auto) 4.8 % 04/08/22 08:36 Polychromasia 1+ 03/31/22 09:13 Anisocytosis Present 03/31/22 09:13 Macrocytosis Present 03/28/22 21:42 Pappenheimer Bodies 1+ 03/28/22 21:42 Target Cells 1+ 04/03/22 09:01 PT 11.4 Seconds (9.0-12.0) 03/28/22 21:42 INR 1.1 (0.9-1.1) 03/28/22 21:42 Sodium 138 mmol/L (136-145) 04/08/22 08:36 Potassium 5.0 mmol/L (3.5-5.1) 04/08/22 08:36 Chloride 106 mmol/L (98-107) 04/08/22 08:36 Carbon Dioxide 23 mmol/L (21-32) 04/08/22 08:36 Anion Gap 9 (3-11) 04/08/22 08:36 BUN 8 mg/dl (6-23) 04/08/22 08:36 Creatinine 0.47 mg/dl (0.6-1.2) L 04/08/22 08:36 Est Cr Clr Drug Dosing 181.0 ml/min 04/08/22 08:36 Est GFR ( Amer) > 150.0 ml/min 04/08/22 08:36 Est GFR (Non-Af Amer) 139.2 ml/min 04/08/22 08:36 BUN/Creatinine Ratio 17.0 (10-20) 04/08/22 08:36 Glucose 89 mg/dl (70-99(Fasting)) 04/08/22 08:36 POC Glucose 176 mg/dl (70-99) H 03/28/22 21:10 Lactate 1.0 mmol/L (0.4-2.0) 03/28/22 23:39 Calcium 9.8 mg/dl (8.5-10.1) 04/08/22 08:36 Magnesium 2.1 mg/dl (1.7-2.4) 04/08/22 08:36 Total Bilirubin 0.7 mg/dl (0.2-1.0) 04/01/22 08:10 Direct Bilirubin 0.2 mg/dl (0-0.2) 03/31/22 09:13 AST 40 U/L (13-39) H 04/01/22 08:10 ALT 35 U/L (7-52) 04/01/22 08:10 Alkaline Phosphatase 62 U/L (34-104) 04/01/22 08:10 Lactate Dehydrogenase 299 U/L (86-244) H 03/28/22 21:42 Total Protein 6.9 gm/dl (6.0-8.3) 04/01/22 08:10 Albumin 3.5 gm/dl (3.4-5.0) 04/01/22 08:10 Globulin 3.4 gm/dl (2.5-4.0) 04/01/22 08:10 Albumin/Globulin Ratio 1.0 (0.9-2) 04/01/22 08:10 Lipase 25 U/L (11-82) 03/28/22 21:42 POC Ur Test NEG (NEG) 03/27/22 06:29 SARS-CoV-2, RNA, NAAT NEGATIVE (NEGATIVE) 03/27/22 Unknown Blood Type B Positive 03/27/22 07:15 Antibody Screen NEGATIVE 03/27/22 07:15 Crossmatch See Detail 03/27/22 07:15 Impressions Chest X-Ray 03/28/22 21:16 SINGLE VIEW CHEST CLINICAL HISTORY: Atypical chest pain FINDINGS: An AP, portable, upright chest radiograph is compared to study performed earlier the same day 03/28/2022. The cardiomediastinal silhouette is unremarkable. The lungs and pleural spaces are clear. No pneumothorax is seen. The bony thorax is grossly intact. Sclerotic change in the right humeral head suggests avascular necrosis. IMPRESSION: No acute cardiopulmonary abnormality. No change from today's earlier examination. ACT 112: Negative or not required by law. Electronically signed by: Richard Mcmahon M.D. 03/29/2022 8:02 AM Venous Doppler Study 03/29/22 13:29 LEFT LOWER EXTREMITY VENOUS DOPPLER CLINICAL HISTORY: Left lower extremity pain, sickle cell pain crisis COMPARISON STUDY: No previous studies for comparison. TECHNIQUE: Sonography of the deep venous system of the left lower extremity was performed. Compression and augmentation were evaluated. FINDINGS: The left common femoral, superficial femoral and popliteal veins were compressible. Augmentation was normal. Flow was shown within the deep calf vessels. IMPRESSION: No evidence of deep venous thrombus within the left lower extremity. ACT 112: Negative or not required by law. Electronically signed by: Carl Jay M.D. 03/29/2022 8:31 PM Hip/Pelvis X-Ray 03/30/22 12:47 AP PELVIS, CROSSTABLE LATERAL LEFT HIP History: Left total hip arthroplasty. Degenerative arthritis. Postop. FINDINGS: The patient is status post a left total hip arthroplasty. The hardware is intact. No fracture or dislocation. Skin paulina are in place. Avascular necrosis of right femoral head and a right proximal femoral bone infarct remain unchanged. IMPRESSION: Left total hip arthroplasty. No evidence for hardware complication. ACT 112: Negative or not required by law. Electronically signed by: Cortes Fletcher M.D. 03/30/2022 2:50 PM Lumbar Spine X-Ray 03/30/22 16:30 XR lumbar spine 2-3V CLINICAL HISTORY: point tenderness L3-L4 area. new L radicular pain COMPARISON STUDY: Lumbar spine MRI March 30, 2019. Lumbar spine radiographs October 13, 2021. FINDINGS: Left hip arthroplasty is incidentally noted. No acute lumbar spine fracture is noted. H-shaped appearance of the lumbar vertebra remains unchanged from prior imaging studies. Disc spaces are preserved. Facet joints are intact. There are no suspicious osseous lesions. IMPRESSION: 1. No acute lumbar spine fracture or subluxation. 2. No change in H-shaped appearance of the lower thoracic and lumbar vertebra. This can be seen in setting of sickle cell anemia. ACT 112: Negative or not required by law. Electronically signed by: Carl Jay M.D. 03/30/2022 6:00 PM Hospital Course (1) History of total left hip arthroplasty: 21 y/o F with h/o sickle cell disease and extensive h/o hospitalization for sickle cell crisis, as well as h/o AVN of hips now s/p left hip replacement, POD5. Hospitalist service is now primary service for management. Sickle Cell Pain Crisis -Developing pain crisis with generalized pain suspect due to recent hip replacement. Afebrile. Does have chest pain (along with generalized pain) but without consolidation/infiltrate on several CXRs - lower suspicion for acute chest syndrome. - Previously switched ORE FEEDER pump from dilaudid to morphine (in attempts to mitigate dizziness/nausea): 2mg every 30 minutes; transitioned off ORE FEEDER and back to home regimen fentanyl patch + PO morphine 15mg tid prn which she will continue after discharge. - continue daily hydroxyurea and folate Left lumbar radiculopathy, new on 03/30 - no complaints on discharge.outpt f/u s/p Left hip replacement for AVN - see above. follow hip precautions. - ortho following -f/u outpatient in 2-3 weeks -IT band pain - OMT, voltaren gel Acute on Chronic Anemia, improved - related to sickle cell, stable >9 Sleep disturbance - Mirtazapine qhs in hospital. Can consider continuing in outpatient setting. GERD -cont. Pepcid 20mg bid Constipation -secondary to chronic opioid use -cont. home bowel regimen (2) Avascular necrosis of bone of hip: (3) Chronic pain: (4) Borderline personality disorder: (5) Avascular necrosis of bone of left hip: Total Time Total Time Spent Total Time Spent (In Minutes): 30 Discharge Plan Discharge Items Patient Disposition: Home - Self-Care Reason For Visit: Left Hip DJD Discharge Diagnosis: Left Hip Replacement, Sickle Cell Pain Crisis Activity: Per Instructions section Activity Comment: Follow/Obey hip precautions at all times. Weightbearing: Full weightbearing Weightbearing Comment: Weightbear as tolerated obeying hip precautions at all times. Non-emergency contact: Primary Care Provider and Surgeon Call non-emergency contact if: you have any medication questions Follow-up/Referrals: Jp Castrejon MD [Physician] - 04/12/22 10:00 am (f/u ASIF) Jaret Garland MD [Primary Care Provider] - Diet: Regular Addtl Attending Provider Instructions: You were admitted to the hospital for sickle cell crisis and pain control s/p left hip replacement.You were in the hospital for an extended period of time however upon discharge we believe we have controlled your pain nearly back to your baseline.You should continue with your home regimen which includes your fentanyl patch, Tylenol, and oral morphine 15 mg 3 times a day as needed. As for your dizziness you can continue to take meclizine as well as judicial use of Be nadryl to mitigate the symptoms. It seems that Benadryl also helps with your overall itchiness. You are to f/u with orthopaedics in a couple of weeks for f/u of your left hip replacement. You should also f/u with your PCP in the next 1-2 weeks. ACTIVITY RECOMMENDATIONS: Physical Therapy: * Aggressive physical therapy is not usually needed. You will learn to take care of yourself safely and walk. * Follow the "Hip Precautions Instructions." * In some cases, the dialysis social worker at the hospital will arrange to have a therapist come to your house for the first couple of weeks to help you learn these skills. * You need to practice on your own or with the help of a family member as needed. * When you learn these skills, most of the therapy can be done on your own. Home Exercise: * You were shown a series of exercises in the hospital. Do these exercises three to four times each day including the exercises you were shown in physical therapy. Walking: * Get up and walk several times each day. For the first four weeks, try not to stand or walk for more than one hour at a time. If you do stand or walk for more than one hour, you will not hurt anything, but your leg will likely swell. * As you feel comfortable, you may change from the walker or crutches to a cane and then to independent walking. MEDICATIONS: New Medicine: * You will likely be taking one or more of these medicines: 1. Dilaudid - Take, as directed, when you need it, every six hours to control your pain. 2. Aspirin - Thins your blood to lessen the chance of forming a blood clot. * The most common side effects of pain medicine and iron are nausea and constipation. If nausea or constipation is too much of a problem or if you have any questions about your new medicines or doses, call [facility] at . We will try to help you manage these issues. "VERY IMPORTANT TO READ AND REVIEW" Pain: * The immediate post-operative period after hip replacement surgery is often quite painful. * You are given a prescription for pain medicine. You should take it, as directed, when you need it, especially before physical therapy and before going to bed. Pain that interferes with sleep is very common and can last several months. * You will likely need pain medicine for the first two to four weeks. It will not stop all of the pain. The pain will lessen and as you feel better, you may change to milder pain medicine such as Tylenol. * The most common side effects of pain medicine are nausea and constipation, so don't take more than you need. SPECIAL CARE INSTRUCTIONS: TEDs/Elastic Stockings: * The white elastic stockings help limit swelling and prevent blood clots from forming in your legs. The more you wear them, the more they work. * Wear them for six weeks. Incision Site Care: * Remove dressing postoperative day 2 and then shower. Keep direct shower pressure off the incision site. * After showering, cover paulina with dry gauze and change daily or more frequently if the dressing is getting saturated with drainage. * May completely stop using bandage if wound is dry and no drainage * Paulina are removed between 2 and 3 weeks post-op. If your follow-up appointment is made before 2 weeks, please have your appointment re- scheduled. It is too early to remove the paulina. Prevention of Infection: * Take antibiotics one hour before any dental cleaning, dental work, urological procedure, gastrointestinal procedure or any invasive surgery in order to prevent your new joint from getting infected. * You may get the antibiotics from the doctor performing the procedure or you may call our office at before and we will call in a prescription to the pharmacy of your choice. Things to Watch For: * Drainage from the incision site that occurs more than one week after your surgery. * Severely increased leg pain or swelling. * Increased redness at the incision site. * Fever above 102 degrees Fahrenheit. * Unusual chest pain or shortness of breath. * Unusual pain or burning with urination. Call [facility] at with any of the above problems or if you have any questions about your medicines or recovery. FOLLOW UP VISIT: Make an appointment to see your doctor for approximately two weeks after surgery for a progress check and staple removal by calling the office at . Pending Studies at Discharge: No Stand-Alone Forms: My [facility], Smoking Cessation Medications and DC Order Prescriptions: Continued ondansetron HCl 4 mg tablet 4 mg PO Q6 PRN (Reason: nausea) Qty: 20 1RF Rx Instructions: Post-op med ketorolac 10 mg tablet 10 mg PO Q6 5 Days Qty: 20 0RF Rx Instructions: Take 4 times per day with food for 5 days to decrease pain and swelling. Post-op med acetaminophen 500 mg capsule 1,000 mg PO TID 30 Days Qty: 180 0RF Rx Instructions: Take 3 times per day to lessen pain. Post-op med aspirin [Shannon Low Dose Aspirin] 81 mg tablet,delayed release (DR/EC) 81 mg PO BID 45 Days Qty: 90 0RF Rx Instructions: Take to prevent blood clots.Post-op med cefadroxil 500 mg capsule 500 mg PO BID 7 Days Qty: 14 0RF Rx Instructions: Take 1 cap twice a day to prevent infection. Post-op med (DME) [facility] Walker [facility] [place] See Rx Instructions .MEDSUPPLY Qty: 1 0RF Rx Instructions: As directed polyethylene glycol 3350 17 gram/dose powder 17 g PO DAILY PRN (Reason: Constipation) meclizine 25 mg tablet 25 mg PO TID PRN (Reason: Dizziness) mirtazapine [Remeron] 15 mg tablet 15 mg PO HS Qty: 30 0RF morphine 15 mg tablet 15 mg PO Q8H PRN (Reason: pain) Qty: 90 0RF fentanyl 12 mcg/hr Patch 72 Hour 12 mcg transdermal Q3D Qty: 10 0RF Rx Instructions: Pt took off today 03/27/22 naloxone [Narcan] 4 mg/actuation spray,non-aerosol 4 mg INTRANASAL UD PRN (Reason: opiod overdose) Qty: 2 0RF hydroxyurea [Hydrea] 500 mg capsule 1,000 mg PO BID folic acid 1 mg Tablet 2 mg PO HS Daily Probiotic 2.5 billion cell Capsule 2 cap PO QAM magnesium Tablet 1 tab PO DAILY Rx Instructions: Potassium (99mg) with extend release magnesium (250) magnesium glycinate 100 mg Tablet 800 mg PO BID hydromorphone [Dilaudid] 2 mg tablet 2 - 4 mg PO Q6 PRN (Reason: pain) Rx Instructions: Take as needed for Pain. Post-op med ondansetron 4 mg tablet,disintegrating 4 mg PO TID PRN (Reason: Nausea) norgestimate-ethinyl estradiol [Sprintec (28)] 0.25-35 mg-mcg Tablet 1 tab PO DAILY Rx Instructions: Control Discontinued celecoxib [Celebrex] 200 mg capsule 200 mg PO DAILY PRN (Reason: pain) Qty: 30 0RF Discharge Orders: Discharge Order (Routine); Ordered 04/09/22 Ordered By: Tremayne Foley Admission Data Admit Date/Time: 03/29/22 13:42 Attending Provider: Jamie Shaw Admit Provider: Jp Castrejon Primary Care Provider: Jaret Garland Other Providers: Chandler Mena ; Tiana Alonso ; Yazan Henry ; Wil Ramos ; Harpreet Alamo ; Cesar Kerr ; Richard Marinelli ; Sada Pandya ; Rosie Hardy ; Brant Zuniga ; Jere Greenberg ; Jaymie Castrejon ; Cj Elias ; Artem Ulloa ; Genet Vargas ; Sherly Weber ; Bev Santos ; Daniel Barlow ; Yeison Pond ; Maria Del Carmen Simon ; Tiana Vanessa ; Selam Kaye ; Jamie Shaw ; Yazan Velez ; Caty Serna ; Teodoro Lazaro ; Alvaro Peterson ; Cece Ocampo ; Gaston Flynn ; Monica Moore ; Juan Alberto Cunningham ; Mohini Vance ; Lokesh Rabago ; Tate Hooks ; Jake Whitehead ; Jaret Garland ; Nydia Downey ; Monica Murguia ; [facility] ; [facility] ; Jp Castrejon Other Interventions: Discharge Summary Assessment (RN) Last Done: 04/09/22 17:16 Supervising Physician Co-Signing Physician Notes Attending attestation Pt seen and examined in concert with Dr. Bailey. In agreement with the documented findings as noted in the resident documentation with any exceptions or additions as noted here. Doing well on home pain medication regimen with minimal breakthrough medication use. On examination, AAOx3, NAD. Defers remainder of examination. Chronic pain in the setting of SCD - continue home pain medication regimen as noted. AVN s/p L hip ASIF - ortho consult - continue therapy and follow up as noted Else see resident documentation as noted. Total attending physician time spent with this patient's care on the day of discharge: 35 minutes. Resident Activity Tracking Resident Involvement: Resident Care Provided Care Provided: Adult [facility] Medicine
[2022-04-09] MEDS: HYDROmorphone INJ 1 MG/ML SYRINGE IV PRN ×2 (12:29→16:30)
== END 2022-04-09 18:21 | disposition home health service (06) | DRG 469 ==
LOC: 3N 06:02 → ASU 06:02 → SUATTDRO 03-29 13:42

== ENCOUNTER 2022-06-27 13:37 | Inpatient (IN) ==
[2022-06-27] MEDS ORDERED: SODIUM CHLORIDE 0.9% 1000ML 1,000 ML IV ONE (13:44)
[2022-06-27] MEDS ORDERED: ONDANSETRON INJ 2 MG/ML 2 ML VIAL IV STA (13:44)
[2022-06-27] MEDS ORDERED: HYDROmorphone INJ 1 MG/ML SYRINGE IV STA ×4 (13:44→20:09)
[2022-06-27 14:57] LABS: Basophils # (auto) 0.02 K/uL (0-0.2); Basophils % (auto) 0.4 %; Eosinophils # (auto) 0.07 K/uL (0-0.50); Eosinophils % (auto) 1.3 %; Hematocrit (blood only) 27.8 % (37.0-47.0); Hemoglobin 10.4 g/dl (12.0-16.0); Immature Granulocytes # (auto) 0.03 K/uL (0.01-0.20); Immature Granulocytes % (auto) 0.6 %; Lymphocytes # (auto) 1.52 K/uL (1.2-3.4); Lymphocytes % (auto) 28.1 %; Mean Corpuscular Hemoglobin 38.2 pg (25.0-34.0); Mean Corpuscular Hgb Conc 37.4 g/dL (32.0-36.0); Mean Corpuscular Volume 102.2 fL (80.0-100.0); Mean Platelet Volume 10.1 fL (9.4-12.4); Monocytes % (auto) 5.6 %; Neutrophils # (auto) 3.46 K/uL (1.40-6.50); Nucleated RBC # (auto) 0.19 K/uL (0-0.12); Nucleated RBC % (auto) 3.5 %; Platelet Count 326 K/uL (130-400); RDW Coefficient of Variation 16.5 % (11.5-14.5); RDW Standard Deviation 60.5 fL (36.4-46.3); Red Blood Count 2.72 M/uL (4.20-5.40); Reticulocyte % 9.1 % (0.5-2.0); Reticulocytes # 0.25 10^6/uL (0.02-0.10)
--- NOTE | 2022-06-27 15:15 | Emergency Department Note ---
History of Present Illness General Chief complaint: Illness Stated complaint: SICKLE CELL,NAUSEA,HEADACHES Time Seen by Provider: 06/27/22 13:43 History of Present Illness Provider complaint: Sickle cell crisis Onset (ago): week(s) 1 Maximum Pain Intensity: 8 Associated symptoms: no fever/chills 21-year-old female with history of sickle cell anemia presents emergency department for sickle cell crisis. Patient reports her symptoms have been going on for the last week. She reports a mild cough. She reports myalgias. She states her pain is primarily in her back and legs which is where she usually gets her sickle cell pain crises. No melena or hematochezia. No dysuria or hematuria. No fevers. Home Medications Medication Instructions Recorded Confirmed Type folic acid 1 mg tablet 2 mg PO HS 01/31/21 06/27/22 History hydroxyurea 500 mg capsule (Hydrea) 1,000 mg PO BID 01/31/21 06/27/22 History polyethylene glycol 3350 17 17 g PO DAILY PRN Constipation 08/13/21 06/27/22 History gram/dose oral powder meclizine 25 mg tablet 25 mg PO TID PRN Dizziness 12/20/21 06/27/22 History fentanyl 12 mcg/hr transdermal 12 mcg transdermal Q3D #10 ea 02/23/22 06/27/22 Rx patch mirtazapine 15 mg tablet (Remeron) 15 mg PO HS #30 tabs 02/23/22 06/27/22 Rx morphine 15 mg immediate release 15 mg PO Q8H PRN pain #90 tabs 02/23/22 06/27/22 Rx tablet naloxone 4 mg/actuation nasal 4 mg intranasal UD PRN opiod 02/23/22 06/27/22 Rx spray (Narcan) overdose #2 ea Wheeled Walker #1 ea 03/04/22 04/12/22 Rx Lactobacillus 2 cap PO HS 03/12/22 06/27/22 History acidophilus-Bifidobac.animalis 2.5 billion cell capsule (Daily Probiotic) ondansetron HCl 4 mg tablet 4 mg PO Q6 PRN nausea #20 tabs 03/25/22 06/27/22 Rx acetaminophen 500 mg capsule 1,000 mg PO TID PRN Pain 06/27/22 06/27/22 History fluvoxamine 50 mg tablet 50 mg PO HS 06/27/22 06/27/22 History magnesium glycinate 100 mg tablet 200 mg PO HS 06/27/22 06/27/22 History magnesium oxide 400 mg PO HS 06/27/22 06/27/22 History Allergies Allergy/AdvReac Type Severity Reaction Status Date / Time adhesive Allergy Intermediate Blister Verified 06/27/22 15:56 Past Med/Surg History Medical History Anxiety Borderline personality disorder Cardiac murmur no granulator tender. echo 2020 (scanned in system) Chest pain Chest pain Chronic pain Chronic pain syndrome Constipation Depression Depression DVT prophylaxis DVT prophylaxis Elevated LFTs GERD (gastroesophageal reflux disease) variable breakthrough symptoms per pt History of blood transfusion with most recent hospitalization per pt History of sickle cell crisis History of suicidal ideation denies any current SI Insomnia Neutropenia Nonepileptic episode Positive Lyme disease serology Seizures last seizure 1 mo ago per pt. no longer follows with neurology. reports last neuro appt > 1 year ago. Sickle cell anemia Sickle cell anemia Sickle cell disease Sore throat Surgical History History of total left hip arthroplasty Status post total hip replacement, left 03/27/2022 Family History Mother Hypertension Father Ulcer Other Family history non-contributory No family history of adverse response to anesthesia Social History Smoking Status: Never smoker Tobacco Type: Cigarettes Second Hand Exposure: No; Do You Dip or Chew Tobacco: No; Hx Alcohol Use: Yes Alcohol type: wine and hard liquor Hx Substance Use: No Preferred Language: Kosovan Communication Ability: Effective Network Systems Analyst Required: No Beliefs That Will Affect Care: None marital status: Single Current Living Situation: Other Current Living Situation Comment: [place] 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 current occupation: [employer] major Feels Safe at Home: Yes Assistive Devices: Crutches and Walker Physical Exam Vital Signs Vital Signs - 24 hr 06/27/22 13:40 06/27/22 14:45 06/27/22 15:22 Temperature 36.9 C Temperature Source Oral Pulse Rate 85 Pulse Rate [Right Finger] 68 Respiratory Rate 18 20 Respiratory Effort / Characteristics Non-Labored Spontaneous Non-Labored Spontaneous Respiratory Depth Normal Normal Respiratory Pattern Regular Regular Blood Pressure 108/72 Blood Pressure [Right Arm] 107/72 Blood Pressure Mean 84 Blood Pressure Mean [Right Arm] 83 Blood Pressure Position Sitting Pulse Oximetry 99 100 98 Oxygen Delivery Method Room Air Room Air Sepsis Recent Fever Within 48 Hours No Sepsis New/Unexplained Change in Mental Status No Sepsis Action Taken by Nursing No Action Required Physical Exam GENERAL: oriented to person, place, and time. appears well-developed and well- nourished. HENT: Exam performed. - Head: Normocephalic and atraumatic. EYES: Conjunctivae and EOM are normal. Right eye exhibits no discharge. Left eye exhibits no discharge. No scleral icterus. NECK: Normal range of motion. Neck supple. No JVD present. CV: Normal rate, regular rhythm, normal heart sounds and intact distal pulses. There is no peripheral edema. Palpable radial pulses bue. PULM/CHEST: Effort normal and breath sounds normal. No respiratory distress. No stridor. no wheezes. no rales. ABD: The abdomen is soft. There is no tenderness. NEURO: Motor and sensation grossly intact. SKIN: Skin is warm and dry. He is not diaphoretic. PSYCH: normal mood and affect. Behavior is normal. Judgment and thought content normal. Course Course 1343: The patient was evaluated in room C1. A complete history and physical exam was performed Cardiac monitoring: An order was placed for continuous cardiac monitoring. The monitor shows a rate of 70 with sinus rhythm interpreted by me 1750: Vital signs stable. Labs are within normal limits with the exception of a positive COVID test. Patient reports that she feels like she is in too much pain to go home. Patient is not a candidate for Paxlovid after discussion with pharmacy. Patient will be admitted to the [facility] Hospitalist team. D iscussed with Dr. Velez who stated to admit to Dr. Soriano. Administered Medications Sodium Chloride (Nss 1000ml) 1,000 mls @ 125 mls/hr IV .Q8H WALTER Stop: 07/27/22 15:44 Last Admin: 06/27/22 16:13 Dose: 125 mls/hr Documented By: RICHARD Discontinued Medications Diphenhydramine HCl (Diphenhydramine 50 Mg/Ml Vial) 25 mg IV NOW STA Stop: 06/27/22 15:56 Last Admin: 06/27/22 16:13 Dose: 25 mg Documented By: RICHARD Hydromorphone HCl (Hydromorphone Inj 1 Mg/Ml Syringe) 1 mg IV NOW STA Stop: 06/27/22 13:45 Last Admin: 06/27/22 14:32 Dose: 1 mg Documented By: RANJAN Hydromorphone HCl (Hydromorphone Inj 1 Mg/Ml Syringe) 1 mg IV NOW STA Stop: 06/27/22 15:40 Last Admin: 06/27/22 16:14 Dose: 1 mg Documented By: RICHARD Sodium Chloride (Nss 1000ml) 1,000 mls @ 999 mls/hr IV .Q1H1M ONE Stop: 06/27/22 14:44 Last Infusion: 06/27/22 16:18 Dose: 0 mls/hr Documented By: Admin: 06/27/22 14:31 Dose: 999 mls/hr Documented By: RANJAN Ondansetron HCl (Ondansetron Inj 2 Mg/Ml 2 Ml Vial) 4 mg IV NOW STA Stop: 06/27/22 13:45 Last Admin: 06/27/22 14:31 Dose: 4 mg Documented By: RANJAN Medical Decision Making Laboratory Data Attestation: I reviewed the patient's lab results. 06/27/22 13:58 06/27/22 13:58 Lab Results 06/27/22 06/27/22 06/27/22 Range/Units 13:58 13:58 13:58 WBC 5.40 (4.8-10.8) K/ul RBC 2.72 L (4.20-5.40) M/uL Hgb 10.4 L (12.0-16.0) g/dl Hct 27.8 L (37.0-47.0) % MCV 102.2 H (80.0-100.0) fL MCH 38.2 H (25.0-34.0) pg MCHC 37.4 H (32.0-36.0) g/dL RDW Std Deviation 60.5 H (36.4-46.3) fL RDW Coeff of Nando 16.5 H (11.5-14.5) % Plt Count 326 (130-400) K/uL MPV 10.1 (9.4-12.4) fL Immature Gran % (Auto) 0.6 % Neut % (Auto) 64.0 % Lymph % (Auto) 28.1 % [place] % (Auto) 5.6 % Eos % (Auto) 1.3 % Baso % (Auto) 0.4 % Reticulocyte % (Auto) 9.1 H (0.5-2.0) % Neut # (Auto) 3.46 (1.40-6.50) K/uL Lymph # (Auto) 1.52 (1.2-3.4) K/uL [place] # (Auto) 0.30 (0.11-0.59) K/uL Eos # (Auto) 0.07 (0-0.50) K/uL Baso # (Auto) 0.02 (0-0.2) K/uL Reticulocyte # 0.25 H (0.02-0.10) 10^6/uL Immature Gran # (Auto) 0.03 (0.01-0.20) K/uL Absolute Nucleated RBC 0.19 H (0-0.12) K/uL Nucleated RBC % (auto) 3.5 % Polychromasia 2+ Sickle Cells 1+ Target Cells 2+ Stomatocytes 1+ Sodium 136 (136-145) mmol/L Potassium 4.0 (3.5-5.1) mmol/L Chloride 103 (98-107) mmol/L Carbon Dioxide 28 (21-32) mmol/L Anion Gap 5 (3-11) BUN 7 (6-23) mg/dl Creatinine 0.60 (0.6-1.2) mg/dl Est Cr Clr Drug Dosing 136.5 ml/min Est GFR ( Amer) 148.9 ml/min Est GFR (Non-Af Amer) 128.5 ml/min BUN/Creatinine Ratio 11.7 (10-20) Glucose 90 (70-99(Fasting)) mg/dl Calcium 9.8 (8.6-10.3) mg/dl Lactate Dehydrogenase 322 H (86-244) U/L SARS-CoV-2 (PCR) (Negative) Influenza Type A (PCR) (Neg) Influenza Type B (PCR) (Neg) RSV (RT-PCR) (Neg) Blood Type Antibody Screen 06/27/22 06/27/22 Range/Units 14:25 14:56 WBC (4.8-10.8) K/ul RBC (4.20-5.40) M/uL Hgb (12.0-16.0) g/dl Hct (37.0-47.0) % MCV (80.0-100.0) fL MCH (25.0-34.0) pg MCHC (32.0-36.0) g/dL RDW Std Deviation (36.4-46.3) fL RDW Coeff of Nando (11.5-14.5) % Plt Count (130-400) K/uL MPV (9.4-12.4) fL Immature Gran % (Auto) % Neut % (Auto) % Lymph % (Auto) % [place] % (Auto) % Eos % (Auto) % Baso % (Auto) % Reticulocyte % (Auto) (0.5-2.0) % Neut # (Auto) (1.40-6.50) K/uL Lymph # (Auto) (1.2-3.4) K/uL [place] # (Auto) (0.11-0.59) K/uL Eos # (Auto) (0-0.50) K/uL Baso # (Auto) (0-0.2) K/uL Reticulocyte # (0.02-0.10) 10^6/uL Immature Gran # (Auto) (0.01-0.20) K/uL Absolute Nucleated RBC (0-0.12) K/uL Nucleated RBC % (auto) % Polychromasia Sickle Cells Target Cells Stomatocytes Sodium (136-145) mmol/L Potassium (3.5-5.1) mmol/L Chloride (98-107) mmol/L Carbon Dioxide (21-32) mmol/L Anion Gap (3-11) BUN (6-23) mg/dl Creatinine (0.6-1.2) mg/dl Est Cr Clr Drug Dosing ml/min Est GFR ( Amer) ml/min Est GFR (Non-Af Amer) ml/min BUN/Creatinine Ratio (10-20) Glucose (70-99(Fasting)) mg/dl Calcium (8.6-10.3) mg/dl Lactate Dehydrogenase (86-244) U/L SARS-CoV-2 (PCR) POSITIVE A* (Negative) Influenza Type A (PCR) Negative (Neg) Influenza Type B (PCR) Negative (Neg) RSV (RT-PCR) Negative (Neg) Blood Type B Positive Antibody Screen POSITIVE A Imaging Data Attestation: I personally reviewed and interpreted this imaging study as follows: My Impression: Chest x-ray negative. Airway clear. No pneumothorax. No consolidation. No cardiomegaly or cephalization.. No free air under the diaphragm. No fractures of the skeletal structures. Radiologist's Impression: Chest X-Ray 06/27/22 15:48 XR chest 2V PA/lateral HISTORY: 21 years-old Female cough acute cough COMPARISON: 03/28/2022 TECHNIQUE: PA and lateral views of the chest FINDINGS: Cardiomediastinal and hilar silhouettes are within normal limits. No pneumothorax, pleural effusion, airspace consolidation or pulmonary edema. Bones of the chest appear grossly intact. IMPRESSION: No acute process. ACT 112: Negative or not required by law. The above report was generated using voice recognition software. It may contain grammatical, syntax or spelling errors. Electronically signed by: Tre Jennings M.D. 06/27/2022 4:08 PM [facility] Narrative 1343: The patient was evaluated in room C1. A complete history and physical exam was performed Cardiac monitoring: An order was placed for continuous cardiac monitoring. The monitor shows a rate of 70 with sinus rhythm interpreted by me 1750: Vital signs stable. Labs are within normal limits with the exception of a positive COVID test. Patient reports that she feels like she is in too much pain to go home. Patient is not a candidate for Paxlovid after discussion with pharmacy. Patient will be admitted to the [facility] hospitalist team. Discussed with Dr. Velez who stated to admit to Dr. Soriano. Impression & Plan Sickle cell crisis Discharge Plan Visit Data Chief Complaint: Illness Stated Complaint: SICKLE CELL,NAUSEA,HEADACHES ED Provider: Ramana Almaguer Discharge Problem: Sickle cell crisis Patient Disposition: Admitted As Inpatient Forms Stand Alone Forms: My [facility] Prescriptions Prescriptions: No Action ondansetron HCl 4 mg tablet 4 mg PO Q6 PRN (Reason: nausea) Qty: 20 1RF Rx Instructions: Post-op med (DME) Wheeled Walker Misc See Rx Instructions .MEDSUPPLY Qty: 1 0RF Rx Instructions: As directed polyethylene glycol 3350 17 gram/dose powder 17 g PO DAILY PRN (Reason: Constipation) meclizine 25 mg tablet 25 mg PO TID PRN (Reason: Dizziness) mirtazapine [Remeron] 15 mg tablet 15 mg PO HS Qty: 30 0RF morphine 15 mg tablet 15 mg PO Q8H PRN (Reason: pain) Qty: 90 0RF fentanyl 12 mcg/hr Patch 72 Hour 12 mcg transdermal Q3D Qty: 10 0RF Rx Instructions: CHANGED 06/25/22 naloxone [Narcan] 4 mg/actuation spray,non-aerosol 4 mg INTRANASAL UD PRN (Reason: opiod overdose) Qty: 2 0RF magnesium glycinate 100 mg Tablet 200 mg PO HS magnesium oxide 400 mg magnesium Tablet 400 mg PO HS acetaminophen 500 mg capsule 1,000 mg PO TID PRN (Reason: Pain) Rx Instructions: Take 3 times per day to lessen pain. Post-op med fluvoxamine 50 mg tablet 50 mg PO HS Rx Instructions: STARTED 06/21/22 FOR 4 TO 7 NIGHTS, PER PT WILL INCREASE TO 100 MG ON 06/28/22. hydroxyurea [Hydrea] 500 mg capsule 1,000 mg PO BID folic acid 1 mg Tablet 2 mg PO HS Daily Probiotic 2.5 billion cell Capsule 2 cap PO HS Referrals Referrals: Jaret Garland MD [Primary Care Provider] -
[2022-06-27 15:19] LABS: Calcium 9.8 mg/dl (8.6-10.3)
[2022-06-27 15:24] LABS: BUN Creatinine Ratio 11.7 (10-20); Creatinine Clr Calc Pharmacy 136.5 ml/min; Est GFR (African American) 148.9 ml/min; Est GFR (Non-African American) 128.5 ml/min
[2022-06-27 15:25] LABS: Polychromasia 2+; Sickle Cells 1+; Stomatocytes 1+; Target Cells 2+
[2022-06-27 15:35] LABS: Influenza A virus by PCR Negative (Neg); Influenza B virus by PCR Negative (Neg); RSV by PCR Negative (Neg)
[2022-06-27] MEDS ORDERED: SODIUM CHLORIDE 0.9% 1000ML 1,000 ML IV SCH ×2 (15:45→20:15)
[2022-06-27 15:48] LABS: SARS CoV2 RNA(COVID-19) Ceph POSITIVE (Negative)
[2022-06-27] MEDS ORDERED: diphenhydrAMINE 50 MG/ML VIAL IV STA (15:55)
--- NOTE | 2022-06-27 16:09 | XRay Report ---
XR chest 2V PA/lateral HISTORY: 21 years-old Female cough acute cough COMPARISON: 03/28/2022 TECHNIQUE: PA and lateral views of the chest FINDINGS: Cardiomediastinal and hilar silhouettes are within normal limits. No pneumothorax, pleural effusion, airspace consolidation or pulmonary edema. Bones of the chest appear grossly intact. IMPRESSION: No acute process. ACT 112: Negative or not required by law. The above report was generated using voice recognition software. It may contain grammatical, syntax o r spelling errors. Electronically signed by: Tre Jennings M.D. 06/27/2022 4:08 PM
--- NOTE | 2022-06-27 19:25 | History & Physical Report ---
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 Now admitted for sickle cell crisis management. Sickle cell disease/sickle cell pain crisis/chronic pain -Pain crisis likely triggered by recent COVID-19 infection x10 days. Mild respiratory infection. -Afebrile, without leukocytosis. Hemoglobin level at usual baseline. CXR in the ED negative for acute infectious process. -S/p recent left hip replacement for avascular necrosis. Completed postoperative physical therapy rehabilitation. Not complaining of hip pain at this time. * Admitted to [facility] * Aggressive IV hydration: 1/2 NS@150 mL/h x 1 L. Reassess volume status in the a.m. * Continue home pain regimen (fentanyl patch 12 mcg every 3 days, p.o. morphine 15 mg every 4 hours as needed) plus Tylenol 1000 mg IV every 8 hours as needed, IV Dilaudid 1 mg every 4 hours as needed for breakthrough pain. * Reasonable to consider switching to IV morphine from Dilaudid if patient drowsy. * Continue home hydroxyurea, folate * IV Zofran as needed for nausea; meclizine 25 mg p.o. 3 times daily as needed for dizziness * Trend CBC COVID-19 -Per patient, started approximately 10 days ago. -Appears to be mild. No leukocytosis. Patient afebrile. Patient out of therapeutic window for Paxlovid so not indicated. -Completely benign lung exam on admission. * Procalcitonin pending. * Trend CBC Acute on chronic anemia -Secondary to sickle cell anemia. Baseline hemoglobin of 9-10. -Hemoglobin on admission stable, at baseline (10.4). * Trend CBC Sleep disturbance -Chronic; managed at home on mirtazapine 15 mg p.o. nightly * Continue home regimen * Consider lowering, discontinuing mirtazapine, in the event of excessive morning drowsiness. Depression/borderline personality disorder -Chronic; managed on fluvoxamine 50 mg p.o. nightly * Continue home regimen GERD -Chronic; managed at home on Pepcid 20 mg twice daily * Continue home regimen Constipation -Chronic, secondary to chronic opioid use. Managed at home on MiraLAX, magnesium glycinate, magnesium oxide * Continue home regimen Code: Full code Dispo: Med-Surg FEN/GI: Regular diet. NS @maintenance rate DVT Prophylaxis: Lovenox 40 mg q24h PT/OT: No Consults: None Case Management: No (2) COVID-19: (3) Depression: (4) Sickle cell anemia: (5) GERD (gastroesophageal reflux disease): (6) Sleep disturbance: History of Present Illness Primary Care Provider: Jaret Garland MD James is a 21-year-old woman with past medical history significant for sickle cell disease with multiple hospitalizations for sickle cell pain crises, GERD, depression, chronic pain, who presents today for fatigue, and increased pain x10 days. She had a mild respiratory infection (mild cough, afebrile, no dyspnea) that preceded her worsening pain. She tried to manage her pain with her home meds (fentanyl patch, p.o. morphine 15 mg 3 times daily) until she could no longer tolerate it, at which point she presented to the emergency room. Upon arrival in the emergency room, vitals were within normal limits. Labs were most notable for elevated LDH of 322. Hemoglobin was at usual baseline, without leukocytosis (WBC-5.4). Basic metabolic panel also appeared normal. Respiratory viral panel revealed positive COVID-19 infection, of which patient was not previously aware. CXR was also negative for acute infectious process. She received IV hydromorphone 1 mg x 2 doses as well as a 1 L bolus of IV normal saline. Hospitalist service was then consulted for admission. On admission, she continues to report some nausea, fatigue, as well as diffuse chest, abdominal, back, and LE pain but denies shortness of breath at rest or exertion, or dysuria. Allergies Allergy/AdvReac Type Severity Reaction Status Date / Time adhesive Allergy Intermediate Blister Verified 06/27/22 15:56 Home Medications Medication Instructions Recorded Confirmed Type folic acid 1 mg tablet 2 mg PO HS 01/31/21 06/27/22 History hydroxyurea 500 mg capsule (Hydrea) 1,000 mg PO BID 01/31/21 06/27/22 History polyethylene glycol 3350 17 17 g PO DAILY PRN Constipation 08/13/21 06/27/22 History gram/dose oral powder meclizine 25 mg tablet 25 mg PO TID PRN Dizziness 12/20/21 06/27/22 History fentanyl 12 mcg/hr transdermal 12 mcg transdermal Q3D #10 ea 02/23/22 06/27/22 Rx patch mirtazapine 15 mg tablet (Remeron) 15 mg PO HS #30 tabs 02/23/22 06/27/22 Rx morphine 15 mg immediate release 15 mg PO Q8H PRN pain #90 tabs 02/23/22 06/27/22 Rx tablet naloxone 4 mg/actuation nasal 4 mg intranasal UD PRN opiod 02/23/22 06/27/22 Rx spray (Narcan) overdose #2 ea Wheeled Walker #1 ea 03/04/22 04/12/22 Rx Lactobacillus 2 cap PO HS 03/12/22 06/27/22 History acidophilus-Bifidobac.animalis 2.5 billion cell capsule (Daily Probiotic) ondansetron HCl 4 mg tablet 4 mg PO Q6 PRN nausea #20 tabs 03/25/22 06/27/22 Rx acetaminophen 500 mg capsule 1,000 mg PO TID PRN Pain 06/27/22 06/27/22 History fluvoxamine 50 mg tablet 50 mg PO HS 06/27/22 06/27/22 History magnesium glycinate 100 mg tablet 200 mg PO HS 06/27/22 06/27/22 History magnesium oxide 400 mg PO HS 06/27/22 06/27/22 History Past Med/Surg History Medical History (Updated 06/27/22 @ 19:29 by Chao Shoemaker MD) Anxiety Borderline personality disorder 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 echo 2020 (scanned in system) Chest pain Chest pain Chronic pain Chronic pain syndrome Constipation Depression Depression DVT prophylaxis DVT prophylaxis Elevated LFTs GERD (gastroesophageal reflux disease) variable breakthrough symptoms per pt History of blood transfusion with most recent hospitalization per pt History of sickle cell crisis History of suicidal ideation denies any current SI Insomnia Neutropenia Nonepileptic episode Positive Lyme disease serology Seizures last seizure 1 mo ago per pt. no longer follows with neurology. reports last neuro appt > 1 year ago. Sickle cell anemia Sickle cell anemia Sickle cell disease Sore throat Surgical History History of total left hip arthroplasty Status post total hip replacement, left 03/27/2022 Family History Mother Hypertension Father Ulcer Other Family history non-contributory No family history of adverse response to anesthesia Social History Smoking Status: Never smoker Tobacco Type: Cigarettes Second Hand Exposure: No; Do You Dip or Chew Tobacco: No; Hx Alcohol Use: Yes Alcohol type: wine and hard liquor Hx Substance Use: No Preferred Language: Yoruba Communication Ability: Effective Highway Patrol Pilot Required: No Beliefs That Will Affect Care: None marital status: Single Current Living Situation: Other Current Living Situation Comment: [place] 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 current occupation: [employer] major Feels Safe at Home: Yes Assistive Devices: Crutches and Walker Review of Systems Review of Systems: All systems reviewed & are unremarkable except as noted in HPI & below Physical Exam Physical Exam: General: Mildly fatigued but otherwise alert appearing young woman in no acute distress HEENT: PERRLA. Normal conjunctiva, anicteric sclera. Oropharynx normal. Respiratory: Normal respiratory effort, CTABL. Cardiovascular: RRR without murmurs, gallops, or rubs. No pedal edema. GI: Soft abdomen with normal bowel sounds heard on auscultation. Tender to mild-moderate palpation diffusely in all quadrants Neuro: Alert and oriented x3. Results & Data Results & Data Vital Signs (Past 12 Hours) Vital Signs Temp Pulse Pulse Resp BP BP Pulse Ox 06/27/22 18:44 75 16 100/59 L 100 06/27/22 15:22 98 06/27/22 14:45 68 20 107/72 100 06/27/22 13:40 36.9 C 85 18 108/72 99 O2 Del Method 06/27/22 18:44 06/27/22 15:22 Room Air 06/27/22 14:45 06/27/22 13:40 Room Air Supervising Physician Co-Signing Physician Notes I personally examined the patient and verified all amaro points of history and exam, discussed case, and agree with decision making with Dr Shoemaker Feeling a lot of pain typical for her sickle cell. COVID probably started at least 5 days ago per her symptoms, and those seem to be getting better. No respiratory distress. Vitals noted, in general she is awake and alert pleasant but appears uncomfortable and very fatigued. Breathing unlabored no accessory muscle use good effort. Skin shows no rashes no pallor or icterus. Sickle cell with acute pain crisisprecipitated by COVID-19. IV fluids, pain control, supportive care, time. COVID-19fortunately does not appear to be very ill with this, is on room air, no specific treatment needed. Resident Activity Tracking Resident Involvement: Resident Care Provided Care Provided: Adult Hospital Medicine (4) Sickle cell anemia Sickle-cell associated disorders: with unspecified crisis Qualified Code(s): D57.00 - Hb-SS disease with crisis, unspecified (5) GERD (gastroesophageal reflux disease) Esophagitis presence: esophagitis presence not specified Qualified Code(s): K21.9 - Gastro-esophageal reflux disease without esophagitis
[2022-06-27] MEDS ORDERED: MECLIZINE HCL 25 MG TAB PO PRN (19:45)
[2022-06-27] MEDS ORDERED: ACETAMINOPHEN 1,000 MG/100 ML VIAL IV PRN (19:45)
[2022-06-27] MEDS ORDERED: HYDROmorphone INJ 1 MG/ML SYRINGE IV PRN (19:45)
[2022-06-27] MEDS ORDERED: POLYETHYLENE (MIRALAX) 17 GM PACK PO PRN (19:45)
[2022-06-27] MEDS ORDERED: ONDANSETRON INJ 2 MG/ML 2 ML VIAL IV PRN (19:45)
[2022-06-27] MEDS ORDERED: MAGNESIUM HYDROXIDE SUSP 30 ML UDC PO ONE (20:09)
[2022-06-27] MEDS ORDERED: NALOXONE HCL 0.4 MG/1 ML VIAL/CARP IV PRN ×2 (20:09→20:13)
[2022-06-27] MEDS ORDERED: MoRPHine SULFATE IR 15 MG TAB (IMMEDIATE RELEASE) PO PRN (20:10)
[2022-06-27] MEDS: SODIUM CHLORIDE 0.45 % 1,000 ML IV SCH (20:30)
[2022-06-27] MEDS ORDERED: fluvoxaMINE MALEATE 50 MG TAB PO SCH (21:00)
[2022-06-27] MEDS ORDERED: NON-FORMULARY MEDICATION (Magnesium Glycinate 100 mg Tablet) PO SCH (21:00)
[2022-06-27] MEDS: FOLIC ACID 1 MG TAB PO SCH (21:32)
[2022-06-27] MEDS: HYDROXYUREA 500 MG CAP PO SCH (21:33)
[2022-06-27] MEDS: ADVANCED PROBIOTIC 1250 MG CAPSULE PO SCH (21:33)
[2022-06-27] MEDS: MAGNESIUM OXIDE 400 MG TAB PO SCH (21:34)
[2022-06-27] MEDS: MIRTAZAPINE TAB 15 MG TAB PO SCH (21:34)
[2022-06-27] MEDS: MAGNESIUM HYDROXIDE SUSP 30 ML UDC PO SCH (21:34)
[2022-06-27] MEDS: diphenhydrAMINE Capsule 25 MG CAP PO PRN (22:02)
[2022-06-28] MEDS: CHECK fentaNYL PATCH PLACEMENT SCH ×3 (00:57→16:18)
[2022-06-28] MEDS: SODIUM CHLORIDE 0.45 % 1,000 ML IV SCH ×4 (02:43→20:36)
[2022-06-28] MEDS: HYDROmorphone PCA 30 MG/30 ML IV PRN ×2 (02:44→18:55)
[2022-06-28] MEDS: MAGNESIUM HYDROXIDE SUSP 30 ML UDC PO SCH ×4 (09:17→20:36)
[2022-06-28] MEDS: HYDROXYUREA 500 MG CAP PO SCH ×2 (09:18→20:45)
[2022-06-28] MEDS: ENOXAPARIN INJ 40 MG/0.4 ML SYR SQ SCH (09:19)
[2022-06-28] MEDS: fentaNYL 12 MCG/HR TDSY TD SCH (09:34)
[2022-06-28] MEDS: diphenhydrAMINE 50 MG/ML VIAL IV PRN ×3 (10:51→20:37)
[2022-06-28 11:33] LABS: Hematocrit (blood only) 22.9 % (37.0-47.0); Hemoglobin 8.3 g/dl (12.0-16.0); Mean Corpuscular Hemoglobin 38.2 pg (25.0-34.0); Mean Corpuscular Hgb Conc 36.2 g/dL (32.0-36.0); Mean Corpuscular Volume 105.5 fL (80.0-100.0); Mean Platelet Volume 10.4 fL (9.4-12.4); Nucleated RBC # (auto) 0.12 K/uL (0-0.12); Nucleated RBC % (auto) 2.3 %; Platelet Count 260 K/uL (130-400); RDW Coefficient of Variation 16.8 % (11.5-14.5); RDW Standard Deviation 63.5 fL (36.4-46.3); Red Blood Count 2.17 M/uL (4.20-5.40); White Blood Count 5.24 K/ul (4.8-10.8)
[2022-06-28 11:49] LABS: Anion Gap 4 (3-11); BUN Creatinine Ratio 12.5 (10-20); Blood Urea Nitrogen 6 mg/dl (6-23); Calcium 8.2 mg/dl (8.6-10.3); Carbon Dioxide 28 mmol/L (21-32); Chloride 107 mmol/L (98-107); Creatinine Clr Calc Pharmacy 170.6 ml/min; Est GFR (African American) > 150.0 ml/min; Est GFR (Non-African American) 138.3 ml/min; Glucose 96 mg/dl (70-99(Fasting)); Potassium 3.7 mmol/L (3.5-5.1); Sodium 139 mmol/L (136-145)
[2022-06-28 12:58] LABS: Basophils # (auto) 0.02 K/uL (0-0.2); Basophils % (auto) 0.4 %; Eosinophils # (auto) 0.12 K/uL (0-0.50); Eosinophils % (auto) 2.3 %; Immature Granulocytes # (auto) 0.03 K/uL (0.01-0.20); Immature Granulocytes % (auto) 0.6 %; Lymphocytes # (auto) 3.41 K/uL (1.2-3.4); Lymphocytes % (auto) 65.1 %; Monocytes # (auto) 0.28 K/uL (0.11-0.59); Monocytes % (auto) 5.3 %; Neutrophils # (auto) 1.38 K/uL (1.40-6.50); Neutrophils % (auto) 26.3 %; Polychromasia 1+; Sickle Cells 1+; Target Cells 2+
--- NOTE | 2022-06-28 17:06 | Hospitalist Progress Note ---
Date of Service June 28, 2022 Assessment & Plan (1) Sickle cell crisis: Plan: 21 F with history of sickle cell disease, multiple hospitalizations for sickle cell pain crises, avascular necrosis of hips (now s/p left hip replacement), chronic anemia, GERD presented to the hospital with sickle cell crisis following mildly symptomatic COVID-19 respiratory infection. Now admitted for sickle cell crisis management. Sickle cell disease/sickle cell pain crisis/chronic pain -Pain crisis likely triggered by recent COVID-19 infection x10 days. Mild respiratory infection. -Suspect chest pressure is just from URI symptoms and some drainagefortunately nothing consistent with acute chest at this timeclose vigilance. -Continue pain control with Dilaudid 1 mg every hour via CLAY STAIN MIXER ----For chronic pain regimenMay benefit from cycling 2 different medications with similar potency given that she seems to be developing a degree of tolerance/withdrawal to her current regimen. We will continue to discussobviously this is more of an outpatient decision, but unfortunately because she is in the hospital so often, she and I have built much of her chronic plans together. COVID-19 -Per patient, started approximately 11 days ago. -Appears to be mild. No specific treatment needed Acute on chronic anemia -Secondary to sickle cell anemia. Baseline hemoglobin of 9-10. -Hemoglobin on admission stable, at baseline (10.4). * Trend CBC periodically Sleep disturbance -Chronic; managed at home on mirtazapine 15 mg p.o. nightly for now * Continue home regimen * Consider lowering, discontinuing mirtazapine, in the event of excessive morning drowsiness. For now after discussion of risks and benefits she and I agreed to continue Depression/borderline personality disorder -Chronic; managed on fluvoxamine 50 mg p.o. nightly * Continue home regimen GERD -Chronic; managed at home on Pepcid 20 mg twice daily * Continue home regimen Constipation -Chronic, secondary to chronic opioid use. Milk of Magnesia 4 times daily Code: Full code Dispo: Med-Surg FEN/GI: Regular diet. Half-normal saline DVT Prophylaxis: Lovenox 40 mg q24h PT/OT: No Consults: None Case Management: No (2) COVID-19: (3) Depression: (4) Sickle cell anemia: (5) GERD (gastroesophageal reflux disease): (6) Sleep disturbance: Admission and Anticipated Discharge Date Admission Date: June 27, 2022 Subjective Feels pretty lousy. From a viral standpoint sore throat and some pressure in her chest. Otherwise from a sickle cell acute pain crisis standpoint still hurts all over. Notes that Dilaudid takes the pain down about 2-3 points, and is lasting 60 to 90 minutes before she needs another dose. Notes that she does feel a degree of sedation from the mirtazapine, and is debating whether or not she would like to hold itbut also notes that without it she probably will not sleep very well, so for now would like to continue. She also wonders about chronically if it would be time to cycle her chronic narcotic regimen because she starts to feel what seems to be mild withdrawal symptoms (shaking) as she nears the end of the third day of her fentanyl patch. Review of Systems Review of Systems: All systems reviewed & are unremarkable except as noted in HPI & below Physical Exam Physical Exam: In general she is laying in bed fairly still in quiet and appears somewhat uncomfortable. HEENT normocephalic atraumatic mucous membranes moist. Lungs are clear to auscultation bilaterally no rales rhonchi or wheeze with good effort. Skin shows no rashes no pallor or icterus. Neuro without focal deficits. Results & Data Results & Data Vital Signs (Past 12 Hours) Vital Signs Temp Pulse Resp BP Pulse Ox O2 Del Method O2 Flow Rate 06/28/22 15:13 98.4 F 83 18 96/62 L 99 Nasal Cannula 2 06/28/22 11:00 97.3 F L 67 16 101/63 100 Nasal Cannula 2 06/28/22 10:03 Nasal Cannula 2 06/28/22 06:50 97.9 F 62 18 95/63 L 100 Room Air 06/28/22 06:44 97.9 F 60 18 100/62 100 Room Air 06/28/22 05:43 98.2 F 62 18 100/58 L 100 Room Air PG Care Time/CCT Total # of Minutes Spent Total Time Spent with Patient: Total time spent is greater than 50% in coordination of care (as documented) at patient's floor/unit and/or counseling patient: Coding Level of Care Code 73188 SUB INP/OBS CARE 3/50MIN Diagnoses Sickle cell crisis D57.00 COVID-19 U07.1 Depression F32.A Sickle cell anemia D57.00 Sickle-cell associated disorders: with unspecified crisis GERD (gastroesophageal reflux disease) K21.9 Esophagitis presence: esophagitis presence not specified Sleep disturbance G47.9 (4) Sickle cell anemia Sickle-cell associated disorders: with unspecified crisis Qualified Code(s): D57.00 - Hb-SS disease with crisis, unspecified (5) GERD (gastroesophageal reflux disease) Esophagitis presence: esophagitis presence not specified Qualified Code(s): K21.9 - Gastro-esophageal reflux disease without esophagitis
--- NOTE | 2022-06-28 17:23 | Billing Data ---
Date of Service June 28, 2022 Coding Level of Care Code 01722 SUB INP/OBS CARE MIN
[2022-06-28] MEDS: fluvoxaMINE MALEATE 50 MG TAB PO SCH (20:37)
[2022-06-28] MEDS: ADVANCED PROBIOTIC 1250 MG CAPSULE PO SCH (20:37)
[2022-06-28] MEDS: MIRTAZAPINE TAB 15 MG TAB PO SCH (20:37)
[2022-06-28] MEDS: MAGNESIUM OXIDE 400 MG TAB PO SCH (20:38)
[2022-06-28] MEDS: FOLIC ACID 1 MG TAB PO SCH (20:38)
[2022-06-29] MEDS: CHECK fentaNYL PATCH PLACEMENT SCH ×4 (00:06→23:47)
[2022-06-29] MEDS: diphenhydrAMINE 50 MG/ML VIAL IV PRN ×6 (00:59→22:07)
[2022-06-29] MEDS: SODIUM CHLORIDE 0.45 % 1,000 ML IV SCH ×4 (01:23→20:42)
[2022-06-29 06:24] LABS: Anion Gap 3 (3-11); BUN Creatinine Ratio 12.2 (10-20); Basophils # (auto) 0.04 K/uL (0-0.2); Basophils % (auto) 0.6 %; Blood Urea Nitrogen 6 mg/dl (6-23); Calcium 8.9 mg/dl (8.6-10.3); Carbon Dioxide 32 mmol/L (21-32); Chloride 104 mmol/L (98-107); Creatinine Clr Calc Pharmacy 167.2 ml/min; Eosinophils # (auto) 0.18 K/uL (0-0.50); Eosinophils % (auto) 2.8 %; Est GFR (African American) > 150.0 ml/min; Est GFR (Non-African American) 137.3 ml/min; Glucose 96 mg/dl (70-99(Fasting)); Hematocrit (blood only) 23.8 % (37.0-47.0); Hemoglobin 8.6 g/dl (12.0-16.0); Immature Granulocytes # (auto) 0.01 K/uL (0.01-0.20); Immature Granulocytes % (auto) 0.2 %; Lymphocytes # (auto) 2.94 K/uL (1.2-3.4); Lymphocytes % (auto) 46.2 %; Mean Corpuscular Hemoglobin 38.4 pg (25.0-34.0); Mean Corpuscular Hgb Conc 36.1 g/dL (32.0-36.0); Mean Corpuscular Volume 106.3 fL (80.0-100.0); Monocytes % (auto) 4.7 %; Neutrophils # (auto) 2.89 K/uL (1.40-6.50); Neutrophils % (auto) 45.5 %; Nucleated RBC # (auto) 0.13 K/uL (0-0.12); Platelet Count 270 K/uL (130-400); RDW Coefficient of Variation 17.2 % (11.5-14.5); RDW Standard Deviation 65.1 fL (36.4-46.3); Red Blood Count 2.24 M/uL (4.20-5.40); Sodium 139 mmol/L (136-145); White Blood Count 6.36 K/ul (4.8-10.8)
[2022-06-29] MEDS: HYDROmorphone PCA 30 MG/30 ML IV PRN ×3 (06:58→18:50)
[2022-06-29] MEDS: ENOXAPARIN INJ 40 MG/0.4 ML SYR SQ SCH (09:13)
[2022-06-29] MEDS: MAGNESIUM HYDROXIDE SUSP 30 ML UDC PO SCH ×4 (09:14→20:30)
[2022-06-29] MEDS: HYDROXYUREA 500 MG CAP PO SCH ×2 (09:39→20:36)
--- NOTE | 2022-06-29 14:23 | Hospitalist Progress Note ---
Date of Service June 29, 2022 Assessment & Plan (1) Sickle cell crisis: Plan: 21 F with history of sickle cell disease, multiple hospitalizations for sickle cell pain crises, avascular necrosis of hips (now s/p left hip replacement), chronic anemia, GERD presented to the hospital with sickle cell crisis following mildly symptomatic COVID-19 respiratory infection. Now admitted for sickle cell crisis management. Sickle cell disease/sickle cell pain crisis/chronic pain -Pain crisis likely triggered by recent COVID-19 infection. -Suspect chest pressure is just from URI symptoms and some drainagebut since persistent and does have small O2 requirement - CXR to eval for any hint of acute chest or pneumonia - but doubtful -Continue pain control but for now escalate to Dilaudid 1.25 mg every hour via LOG DATA TECHNICIAN ----For chronic pain regimenmay benefit from cycling 2 different medications with similar potency given that she seems to be developing a degree of tolerance/withdrawal to her current regimen. We will continue to discussevon zuletay this is more of an outpatient decision, but unfortunately because she is in the hospital so often, she and I have built much of her chronic plans together. COVID-19 -Per patient, started approximately 12 days ago. -Appears to be mild. No specific treatment needed -CXR as above Acute on chronic anemia -Secondary to sickle cell anemia. Baseline hemoglobin of 9-10. -Hemoglobin overall stable * Trend CBC periodically Sleep disturbance -Chronic; managed at home on mirtazapine 15 mg p.o. nightly for now * Continue home regimen * Consider lowering, discontinuing mirtazapine, in the event of excessive morning drowsiness. for now continue -fatigue and overnight desaturations - agree with her concern that she could have JIM (would be more likely genetic + medications (but since weaning meds that can lead to apneas would likely be counterbalanced by uncontrolled pain - probably can't wean) - asked for sleep study to be set up. doubt hypoventilation but with bicarb being a bit elevated on BMP (upper normal) can consider AM Abg Depression/borderline personality disorder -Chronic; managed on fluvoxamine 50 mg p.o. nightly * Continue home regimen GERD -Chronic; managed at home on Pepcid 20 mg twice daily * Continue home regimen Constipation -Chronic, secondary to chronic opioid use. Milk of Magnesia 4 times daily Code: Full code Dispo: Med-Surg FEN/GI: Regular diet. Half-normal saline DVT Prophylaxis: Lovenox 40 mg q24h PT/OT: No Consults: None Case Management: No (2) COVID-19: (3) Depression: (4) Sickle cell anemia: (5) GERD (gastroesophageal reflux disease): (6) Sleep disturbance: Admission and Anticipated Discharge Date Admission Date: June 27, 2022 Subjective feeling lousy - pain all over - LOG DATA TECHNICIAN dosing still helps but maybe not enough - would like to see if 1.25mg helps more but doesn't want excess sedation (after discussion will raise dose but if she feels too much sedation relative to pain benefit will reduce again) chest pressure - substernal - off and on - lasts for a few seconds to a few minutes, no clear trigger/doesn't seem to be related to anything fatigue - ongoing and fairly bad. wonders if she has sleep apnea given fatigue and notes that EtCO2 monitor and continuous pulse ox both trigger when she's sleeping Review of Systems Review of Systems: All systems reviewed & are unremarkable except as noted in HPI & below Physical Exam Physical Exam: gen fatigued but awake, nad heent nc at mmm lungs clear bilaterally no r/r/w but somewhat diminished air entry no accessory muscles good effort skin without rashes no pallor or icterus no focal neuro deficits Results & Data Results & Data Vital Signs (Past 12 Hours) Vital Signs Temp Pulse Resp BP Pulse Ox O2 Del Method O2 Flow Rate 06/29/22 07:12 97.9 F 78 93/53 L 97 Nasal Cannula 06/29/22 04:22 97.9 F 66 15 100/61 98 Nasal Cannula 2 PG Care Time/CCT Total # of Minutes Spent Total Time Spent with Patient: Total time spent is greater than 50% in coordination of care (as documented) at patient's floor/unit and/or counseling patient: Coding Level of Care Code 90240 SUB INP/OBS CARE 3/50MIN Diagnoses Sickle cell crisis D57.00 COVID-19 U07.1 Depression F32.A Sickle cell anemia D57.00 Sickle-cell associated disorders: with unspecified crisis GERD (gastroesophageal reflux disease) K21.9 Esophagitis presence: esophagitis presence not specified Sleep disturbance G47.9 (4) Sickle cell anemia Sickle-cell associated disorders: with unspecified crisis Qualified Code(s): D57.00 - Hb-SS disease with crisis, unspecified (5) GERD (gastroesophageal reflux disease) Esophagitis presence: esophagitis presence not specified Qualified Code(s): K21.9 - Gastro-esophageal reflux disease without esophagitis
[2022-06-29] MEDS: fluvoxaMINE MALEATE 50 MG TAB PO SCH (20:28)
[2022-06-29] MEDS: ADVANCED PROBIOTIC 1250 MG CAPSULE PO SCH (20:29)
[2022-06-29] MEDS: FOLIC ACID 1 MG TAB PO SCH (20:29)
[2022-06-29] MEDS: MAGNESIUM OXIDE 400 MG TAB PO SCH (20:30)
--- NOTE | 2022-06-29 20:47 | XRay Report ---
XR chest 2V PA/lateral CLINICAL HISTORY: chest pressure, eval infiltrate/acute chest findin TECHNIQUE: 2 views of the chest were obtained. Comparison: Comparison is made to chest radiograph 06/27/2022 FINDINGS: No lines and tubes are seen. The cardiomediastinal silhouette is normal. The lungs are clear. No evid ence of pleural effusion or pneumothorax. IMPRESSION: No acute chest disease. ACT 112: Negative or not required by law. Electronically signed by: Kenn Jeffrey M.D. 06/29/2022 8:45 PM
[2022-06-29] MEDS: MIRTAZAPINE TAB 15 MG TAB PO SCH (22:05)
[2022-06-30] MEDS: diphenhydrAMINE 50 MG/ML VIAL IV PRN ×4 (02:59→19:52)
[2022-06-30] MEDS: SODIUM CHLORIDE 0.45 % 1,000 ML IV SCH ×4 (04:57→21:14)
[2022-06-30 07:26] LABS: Base Excess ABG 3.6 mEq/L (-9-1.8); HCO3 ABG 31 mmol/L (19-24); Oxygen Saturation ABG 99.1 % (90-95); PCO2 ABG 61 mmHg (35-46); PO2 ABG 139 mmHg (80-95); pH ABG 7.32 (7.35-7.45)
[2022-06-30 07:27] LABS: Allen Test Pos (Pos)
[2022-06-30 07:43] LABS: Hematocrit (blood only) 22.2 % (37.0-47.0); Mean Corpuscular Hemoglobin 38.5 pg (25.0-34.0); Mean Corpuscular Volume 106.7 fL (80.0-100.0); Mean Platelet Volume 9.7 fL (9.4-12.4); Nucleated RBC # (auto) 0.15 K/uL (0-0.12); Nucleated RBC % (auto) 2.4 %; Platelet Count 260 K/uL (130-400); RDW Coefficient of Variation 17.2 % (11.5-14.5); Red Blood Count 2.08 M/uL (4.20-5.40); White Blood Count 6.24 K/ul (4.8-10.8)
[2022-06-30 08:09] LABS: Basophils # (auto) 0.04 K/uL (0-0.2); Basophils % (auto) 0.6 %; Eosinophils # (auto) 0.26 K/uL (0-0.50); Eosinophils % (auto) 4.2 %; Immature Granulocytes # (auto) 0.02 K/uL (0.01-0.20); Immature Granulocytes % (auto) 0.3 %; Lymphocytes # (auto) 3.54 K/uL (1.2-3.4); Lymphocytes % (auto) 56.7 %; Monocytes # (auto) 0.32 K/uL (0.11-0.59); Monocytes % (auto) 5.1 %; Neutrophils # (auto) 2.06 K/uL (1.40-6.50); Neutrophils % (auto) 33.1 %; Polychromasia 1+; Sickle Cells 1+; Target Cells 1+
[2022-06-30 08:29] LABS: Anion Gap 2 (3-11); BUN Creatinine Ratio 7.1 (10-20); Blood Urea Nitrogen 3 mg/dl (6-23); Calcium 8.9 mg/dl (8.6-10.3); Carbon Dioxide 31 mmol/L (21-32); Chloride 106 mmol/L (98-107); Est GFR (African American) > 150.0 ml/min; Est GFR (Non-African American) 144.5 ml/min; Glucose 109 mg/dl (70-99(Fasting)); Potassium 3.8 mmol/L (3.5-5.1); Sodium 139 mmol/L (136-145)
[2022-06-30] MEDS: CHECK fentaNYL PATCH PLACEMENT SCH ×2 (08:29→15:13)
[2022-06-30] MEDS: ENOXAPARIN INJ 40 MG/0.4 ML SYR SQ SCH (08:30)
[2022-06-30] MEDS: MAGNESIUM HYDROXIDE SUSP 30 ML UDC PO SCH ×4 (08:30→21:15)
[2022-06-30] MEDS: HYDROXYUREA 500 MG CAP PO SCH ×2 (09:22→22:26)
--- NOTE | 2022-06-30 15:37 | Hospitalist Progress Note ---
Date of Service June 30, 2022 Assessment & Plan (1) Vaso-occlusive sickle cell crisis: Plan: Sickle cell disease/sickle cell pain crisis/chronic pain -Pain crisis likely triggered by recent COVID-19 infection. -Continue pain control - see hypoventilation below for more detail but more delicate situation now in balance of pain/pain control and respiratory suppression -- pain control better @ 1.25mg per FORESTRY CONSULTANT but will cautiously reduce to 1mg and follow -continue 0.45NSS ----For chronic pain regimenmay benefit from cycling 2 different medications with similar potency given that she seems to be developing a degree of tolerance/withdrawal to her current regimen. can continue to discuss. most recent chronic regimen before current fentanyl/oxycodone was nucyntaER/nucynta (surprisingly had good insurance coverage for this hypoventilation -likely multifactorial - the "easy" answer would be to attribute it all to pain medications - but (a) given the severity and chronicity of her sickle cell disease and subsequent complicated pain syndrome, simply stopping pain medicines to see if it "fixes" the hypoventilation seems highly probable to inflict significant suffering (b) at home she takes far less total MME/day than when she is acutely ill/admitted, and her fatigue (although likely multifactorial, does fit with JIM playing a role) and her bicarb on basic metabolic panel both corroborate a degree of nocturnal hypoventilation beyond just the acute care setting -since she did show hypercapnea on ABG, although i believe her pain would be better controlled remaining at 1.25mg/dose, will reduce to 1mg/dose for safety -has continuous pulse ox and ETCO2 monitor for acute safety -start CPAP HS--> for now inpatient since her balance between pain control and hypoventilation more delicate right now; asked to set up for sleep study as outpt, but with AM ABG, if she shows desaturations overnight, may be able to qualify her for a device at discharge and have sleep medicine f/u for titration instead (d/w her that typically AM ABG/overnight pulse ox only valid for insurance @ 48hrs or less prior to discharge - so may need to repeat) COVID-19 -Per patient, started approximately 13 days ago. -abrupt worsening of sinus symptoms c/w secondary bacterial overgrowth sinusitis --> augmentin Acute on chronic anemia -Secondary to sickle cell anemia. Baseline hemoglobin of 9-10. -Hemoglobin overall stable * Trend CBC periodically Sleep disturbance -Chronic; managed at home on mirtazapine 15 mg p.o. nightly for now * see above otherwise Depression/borderline personality disorder -Chronic; managed on fluvoxamine 50 mg p.o. nightly * Continue home regimen GERD -Chronic; managed at home on Pepcid 20 mg twice daily * Continue home regimen Constipation -Chronic, secondary to chronic opioid use. Milk of Magnesia 4 times daily Code:Full code Dispo:Med-Surg FEN/GI:Regular diet. Half-normal saline DVT Prophylaxis:Lovenox 40 mg q24h PT/OT:No Consults:None Case Management:No Admission and Anticipated Discharge Date Admission Date: June 27, 2022 Subjective sinus congestion, throat congestion worse. discussed AM ABG and the hindsight implications of her baseline HCO3 on BMP. otherwise feeling generally lousy. no other acute complaints Review of Systems Review of Systems: All systems reviewed & are unremarkable except as noted in HPI & below Physical Exam Physical Exam: mildly ill appearing nad heent nc at mmm breathing unlabored no accessory muscles good effort skin no rashes no pallor or icterus neuro no focal deficits Results & Data Results & Data Vital Signs (Past 12 Hours) Vital Signs Temp Pulse Pulse Resp BP Pulse Ox O2 Del Method 06/30/22 15:18 97.9 F 79 16 116/73 100 Nasal Cannula 06/30/22 12:58 97.2 F L 77 14 107/64 98 Nasal Cannula 06/30/22 12:00 98.1 F 91 H 20 91/57 L 98 Nasal Cannula 06/30/22 08:27 97.9 F 79 18 112/72 100 Nasal Cannula 06/30/22 04:57 73 11 L Nasal Cannula 06/30/22 04:56 98.6 F 8 L 103/58 L 06/30/22 04:50 85 96 Nasal Cannula O2 Flow Rate 06/30/22 15:18 1 06/30/22 12:58 2 06/30/22 12:00 2 06/30/22 08:27 3 06/30/22 04:57 3 06/30/22 04:56 06/30/22 04:50 3 Laboratory Results ABG, CXR, CBC, CMP reviewed PG Care Time/CCT Total # of Minutes Spent Total Time Spent with Patient: Total time spent is greater than 50% in coordination of care (as documented) at patient's floor/unit and/or counseling patient: Coding Level of Care Code 74475 SUB INP/OBS CARE MIN Diagnoses Vaso-occlusive sickle cell crisis D57.00
[2022-06-30] MEDS: AMOXICILLIN/CLAVULANATE 875 MG TAB PO SCH (16:34)
[2022-06-30] MEDS: fluvoxaMINE MALEATE 50 MG TAB PO SCH (21:15)
[2022-06-30] MEDS: FOLIC ACID 1 MG TAB PO SCH (21:15)
[2022-06-30] MEDS: ADVANCED PROBIOTIC 1250 MG CAPSULE PO SCH (21:16)
[2022-06-30] MEDS: MIRTAZAPINE TAB 15 MG TAB PO SCH (21:16)
[2022-06-30] MEDS: MAGNESIUM OXIDE 400 MG TAB PO SCH (21:17)
[2022-07-01] MEDS: CHECK fentaNYL PATCH PLACEMENT SCH ×3 (00:05→16:28)
[2022-07-01] MEDS: diphenhydrAMINE 50 MG/ML VIAL IV PRN ×2 (00:05→20:01)
[2022-07-01] MEDS: SODIUM CHLORIDE 0.45 % 1,000 ML IV SCH ×4 (02:28→22:01)
--- NOTE | 2022-07-01 07:48 | Hospitalist Progress Note ---
Date of Service July 01, 2022 Assessment & Plan (1) Vaso-occlusive sickle cell crisis: Plan: Sickle cell disease/sickle cell pain crisis/chronic pain -Pain crisis likely triggered by recent COVID-19 infection. -Continue pain control --- pain control better @ 1.25mg per Dilaudid DOOR LINER HELPER but will cautiously reduce to 1mg and follow -continue 0.45NSS ---- most recent chronic regimen before current fentanyl/oxycodone was nucyntaER/nucynta hypoventilation overnight nocturnal studies did not show persistent hypoxic events May benefit from a home or outpatient sleep apnea study COVID-19 -Per patient, started approximately 13 days ago. -abrupt worsening of sinus symptoms c/w secondary bacterial overgrowth sinusitis --> augmentin Acute on chronic anemia -Secondary to sickle cell anemia. Baseline hemoglobin of 9-10. -Hemoglobin overall stable * Trend CBC periodically * Sleep disturbance -Chronic; managed at home on mirtazapine 15 mg p.o. nightly for now Depression/borderline personality disorder -Chronic; managed on fluvoxamine 50 mg p.o. nightly * GERD -Chronic; managed at home on Pepcid 20 mg twice daily * Constipation -Chronic, secondary to chronic opioid use. Milk of Magnesia 4 times daily Code:Full code Dispo:Med-Surg DVT Prophylaxis:Lovenox 40 mg q24h Plan Overall difficult case her sickle cell crises tend to last for extended periods of time we will continue to work with her daily basis supporting her with fluids oxygenation and pain control disposition is not determined at this time Admission and Anticipated Discharge Date Admission Date: June 27, 2022 Uziel Murray was seen in the room today she still having pain all over but mostly chest and upper back. Fortunately nocturnal oxygen study was difficult to interpret given her oximetry did not suggest any hypoxic events however she still may benefit from a formal sleep study as an outpatient Physical Exam Physical Exam: Awake and sleepy still on DOOR LINER HELPER Cardiac exam is regular lungs are clear Particularly focal painful joints Results & Data Results & Data Vital Signs (Past 12 Hours) Vital Signs Temp Pulse Pulse Resp BP Pulse Ox Pulse Ox 07/01/22 05:17 07/01/22 03:12 63 95 07/01/22 02:49 98.1 F 93 H 14 106/64 95 07/01/22 00:15 88 97 06/30/22 23:58 97.9 F 94 H 16 104/67 94 06/30/22 23:55 06/30/22 19:50 06/30/22 22:35 62 100 Pulse Ox O2 Del Method O2 Del Method O2 Del Method O2 Flow Rate O2 Flow Rate O2 Flow Rate 07/01/22 05:17 Nasal Cannula 1 07/01/22 03:12 Nasal Cannula 1 07/01/22 02:49 Nasal Cannula 1 07/01/22 00:15 Nasal Cannula 1 06/30/22 23:58 Nasal Cannula 1 06/30/22 23:55 94 Nasal Cannula 1 06/30/22 19:50 Nasal Cannula 1 06/30/22 22:35 Room Air Laboratory Results Reviewed CBC Reviewed PRP PG Care Time/CCT Total # of Minutes Spent Total Time Spent with Patient: Total time spent is greater than 50% in coordination of care (as documented) at patient's floor/unit and/or counseling patient: Coding Level of Care Code 66757 SUB INP/OBS CARE 2/35MIN Diagnoses Vaso-occlusive sickle cell crisis D57.00
[2022-07-01 07:55] LABS: Anion Gap 3 (3-11); BUN Creatinine Ratio 9.8 (10-20); Blood Urea Nitrogen 4 mg/dl (6-23); Calcium 8.9 mg/dl (8.6-10.3); Carbon Dioxide 30 mmol/L (21-32); Chloride 105 mmol/L (98-107); Creatinine Clr Calc Pharmacy 199.8 ml/min; Est GFR (African American) > 150.0 ml/min; Est GFR (Non-African American) 145.6 ml/min; Glucose 89 mg/dl (70-99(Fasting)); Potassium 4.2 mmol/L (3.5-5.1); Sodium 138 mmol/L (136-145)
[2022-07-01] MEDS: MAGNESIUM HYDROXIDE SUSP 30 ML UDC PO SCH ×4 (08:21→20:08)
[2022-07-01] MEDS: ENOXAPARIN INJ 40 MG/0.4 ML SYR SQ SCH (08:22)
[2022-07-01] MEDS: AMOXICILLIN/CLAVULANATE 875 MG TAB PO SCH ×2 (08:22→17:24)
[2022-07-01] MEDS: fentaNYL 12 MCG/HR TDSY TD SCH (08:27)
[2022-07-01] MEDS: HYDROXYUREA 500 MG CAP PO SCH ×2 (08:28→20:36)
[2022-07-01 08:49] LABS: Hematocrit (blood only) 22.6 % (37.0-47.0); Hemoglobin 8.3 g/dl (12.0-16.0); Mean Corpuscular Hgb Conc 36.7 g/dL (32.0-36.0); Mean Corpuscular Volume 106.1 fL (80.0-100.0); Mean Platelet Volume 10.2 fL (9.4-12.4); Nucleated RBC # (auto) 0.13 K/uL (0-0.12); Nucleated RBC % (auto) 2.2 %; Platelet Count 286 K/uL (130-400); RDW Coefficient of Variation 17.8 % (11.5-14.5); RDW Standard Deviation 69.3 fL (36.4-46.3); Red Blood Count 2.13 M/uL (4.20-5.40); White Blood Count 5.98 K/ul (4.8-10.8)
[2022-07-01 08:50] LABS: Basophils # (auto) 0.04 K/uL (0-0.2); Basophils % (auto) 0.7 %; Eosinophils # (auto) 0.23 K/uL (0-0.50); Eosinophils % (auto) 3.8 %; Immature Granulocytes # (auto) 0.03 K/uL (0.01-0.20); Immature Granulocytes % (auto) 0.5 %; Lymphocytes # (auto) 3.31 K/uL (1.2-3.4); Lymphocytes % (auto) 55.4 %; Monocytes # (auto) 0.35 K/uL (0.11-0.59); Monocytes % (auto) 5.9 %; Neutrophils # (auto) 2.02 K/uL (1.40-6.50); Neutrophils % (auto) 33.7 %; Polychromasia 1+; Sickle Cells 1+; Target Cells 2+
[2022-07-01] MEDS: diphenhydrAMINE Capsule 25 MG CAP PO PRN ×3 (09:38→19:48)
[2022-07-01] MEDS: HYDROmorphone PCA 30 MG/30 ML IV PRN (12:30)
[2022-07-01] MEDS: FOLIC ACID 1 MG TAB PO SCH (20:06)
[2022-07-01] MEDS: ADVANCED PROBIOTIC 1250 MG CAPSULE PO SCH (20:07)
[2022-07-01] MEDS: MAGNESIUM OXIDE 400 MG TAB PO SCH (20:07)
[2022-07-01] MEDS: fluvoxaMINE MALEATE 50 MG TAB PO SCH (20:08)
[2022-07-01] MEDS: MIRTAZAPINE TAB 15 MG TAB PO SCH (20:08)
[2022-07-02] MEDS: CHECK fentaNYL PATCH PLACEMENT SCH ×3 (00:01→16:14)
[2022-07-02] MEDS: SODIUM CHLORIDE 0.45 % 1,000 ML IV SCH ×4 (01:25→21:30)
[2022-07-02] MEDS: diphenhydrAMINE 50 MG/ML VIAL IV PRN ×6 (04:27→22:42)
[2022-07-02 07:07] LABS: Basophils # (auto) 0.03 K/uL (0-0.2); Basophils % (auto) 0.6 %; Eosinophils # (auto) 0.18 K/uL (0-0.50); Eosinophils % (auto) 3.5 %; Hematocrit (blood only) 21.1 % (37.0-47.0); Hemoglobin 7.7 g/dl (12.0-16.0); Immature Granulocytes # (auto) 0.02 K/uL (0.01-0.20); Immature Granulocytes % (auto) 0.4 %; Lymphocytes # (auto) 2.56 K/uL (1.2-3.4); Lymphocytes % (auto) 49.7 %; Mean Corpuscular Hemoglobin 37.9 pg (25.0-34.0); Mean Corpuscular Hgb Conc 36.5 g/dL (32.0-36.0); Mean Corpuscular Volume 103.9 fL (80.0-100.0); Mean Platelet Volume 9.4 fL (9.4-12.4); Monocytes # (auto) 0.38 K/uL (0.11-0.59); Monocytes % (auto) 7.4 %; Neutrophils # (auto) 1.98 K/uL (1.40-6.50); Neutrophils % (auto) 38.4 %; Nucleated RBC % (auto) 3.9 %; Platelet Count 270 K/uL (130-400); RDW Standard Deviation 68.7 fL (36.4-46.3); Red Blood Count 2.03 M/uL (4.20-5.40); White Blood Count 5.15 K/ul (4.8-10.8)
[2022-07-02 07:21] LABS: Anion Gap 3 (3-11); BUN Creatinine Ratio 10.2 (10-20); Blood Urea Nitrogen 5 mg/dl (6-23); Calcium 8.9 mg/dl (8.6-10.3); Carbon Dioxide 31 mmol/L (21-32); Chloride 104 mmol/L (98-107); Creatinine Clr Calc Pharmacy 167.2 ml/min; Est GFR (African American) > 150.0 ml/min; Est GFR (Non-African American) 137.3 ml/min; Glucose 104 mg/dl (70-99(Fasting)); Potassium 3.7 mmol/L (3.5-5.1); Sodium 138 mmol/L (136-145)
[2022-07-02 07:45] LABS: Polychromasia 1+; Sickle Cells 1+; Target Cells 2+
[2022-07-02] MEDS: AMOXICILLIN/CLAVULANATE 875 MG TAB PO SCH ×2 (08:38→17:38)
[2022-07-02] MEDS: ENOXAPARIN INJ 40 MG/0.4 ML SYR SQ SCH (08:39)
[2022-07-02] MEDS: MAGNESIUM HYDROXIDE SUSP 30 ML UDC PO SCH ×4 (08:40→21:32)
[2022-07-02] MEDS: HYDROXYUREA 500 MG CAP PO SCH ×2 (09:13→21:34)
[2022-07-02] MEDS: TAPENTADOL HCL 50 MG TAB PO SCH ×2 (14:47→21:33)
--- NOTE | 2022-07-02 17:31 | Hospitalist Progress Note ---
Date of Service July 02, 2022 Assessment & Plan (1) Vaso-occlusive sickle cell crisis: Plan: Sickle cell disease/sickle cell pain crisis/chronic pain -Acute on chronic issue currently uncontrolled requiring infusions of WINE BOTTLE INSPECTOR we will try scheduled Tylenol and Nucynta continues to require IV fluids and supplemental oxygen hypoventilation overnight nocturnal studies did not show persistent hypoxic events May benefit from a home or outpatient sleep apnea study COVID-19 acute self-limited and stable -Per patient, started approximately 13 days ago. -abrupt worsening of sinus symptoms c/w secondary bacterial overgrowth, acute sinusitis --> augmentin Acute on chronic anemia -Secondary to sickle cell anemia. Baseline hemoglobin of 9-10. -Hemoglobin overall stable Sleep disturbance -Chronic; managed at home on mirtazapine 15 mg p.o. nightly for now Depression/borderline personality disorder -Chronic; managed on fluvoxamine 50 mg p.o. nightly * GERD -Chronic; managed at home on Pepcid 20 mg twice daily * Constipation -Chronic, secondary to chronic opioid use. Milk of Magnesia 4 times daily Code:Full code DVT Prophylaxis:Lovenox 40 mg q24h Plan Overall difficult case her sickle cell crises tend to last for extended periods of time we will continue to work with her daily basis supporting her with fluids oxygenation and pain control disposition is not determined at this time Admission and Anticipated Discharge Date Admission Date: June 27, 2022 Subjective James still with co of 7/10 body pain ,chest back and legs still requiring retail stocker Physical Exam Physical Exam: Patient awake and alert difficult to read her affect she is very flat affect speaks quietly Card exam is regular no murmur rubs lungs are clear without wheeze or crackles abdomen NABS soft nontender Results & Data Results & Data Vital Signs (Past 12 Hours) Vital Signs Temp Pulse Resp BP Pulse Ox O2 Del Method O2 Flow Rate 07/02/22 16:10 98.1 F 78 17 105/68 97 Room Air 07/02/22 12:33 98.2 F 91 H 17 106/67 97 Room Air 07/02/22 09:34 Nasal Cannula 1 07/02/22 07:15 98.1 F 71 17 101/54 L 95 Room Air PG Care Time/CCT Total # of Minutes Spent Total Time Spent with Patient: Total time spent is greater than 50% in coordination of care (as documented) at patient's floor/unit and/or counseling patient: Coding Level of Care Code 74279 SUB INP/OBS CARE MIN Diagnoses Vaso-occlusive sickle cell crisis D57.00
[2022-07-02] MEDS: fluvoxaMINE MALEATE 50 MG TAB PO SCH (21:33)
[2022-07-02] MEDS: ADVANCED PROBIOTIC 1250 MG CAPSULE PO SCH (21:33)
[2022-07-02] MEDS: MIRTAZAPINE TAB 15 MG TAB PO SCH (21:34)
[2022-07-02] MEDS: MAGNESIUM OXIDE 400 MG TAB PO SCH (21:35)
[2022-07-02] MEDS: FOLIC ACID 1 MG TAB PO SCH (21:35)
[2022-07-03] MEDS: CHECK fentaNYL PATCH PLACEMENT SCH ×4 (00:12→23:37)
[2022-07-03] MEDS: diphenhydrAMINE 50 MG/ML VIAL IV PRN ×2 (02:40→19:22)
[2022-07-03] MEDS: HYDROmorphone PCA 30 MG/30 ML IV PRN (02:51)
[2022-07-03] MEDS: SODIUM CHLORIDE 0.45 % 1,000 ML IV SCH ×3 (04:52→13:59)
[2022-07-03] MEDS: TAPENTADOL HCL 50 MG TAB PO SCH ×3 (09:30→20:54)
[2022-07-03] MEDS: AMOXICILLIN/CLAVULANATE 875 MG TAB PO SCH ×2 (09:30→17:07)
[2022-07-03] MEDS: HYDROXYUREA 500 MG CAP PO SCH ×2 (09:31→20:50)
[2022-07-03] MEDS: MAGNESIUM HYDROXIDE SUSP 30 ML UDC PO SCH ×4 (09:31→20:51)
[2022-07-03] MEDS: ENOXAPARIN INJ 40 MG/0.4 ML SYR SQ SCH (09:32)
[2022-07-03] MEDS: diphenhydrAMINE Capsule 25 MG CAP PO PRN ×2 (09:38→13:58)
--- NOTE | 2022-07-03 18:09 | Hospitalist Progress Note ---
Date of Service July 03, 2022 Assessment & Plan (1) Vaso-occlusive sickle cell crisis: Plan: Sickle cell disease/sickle cell pain crisis/chronic pain -Acute on chronic issue currently uncontrolled requiring infusions of AIRCRAFT INSTRUMENT ENGINEER we will try scheduled Tylenol and Nucynta continues to require IV fluids and supplemental oxygen difficult to asses as her flat affect hypoventilation overnight nocturnal studies did not show persistent hypoxic tom nts May benefit from a home or outpatient sleep apnea study COVID-19 acute self-limited and stable -Per patient, started approximately 13 days ago. -abrupt worsening of sinus symptoms c/w secondary bacterial overgrowth, acute sinusitis --> augmentin Acute on chronic anemia -Secondary to sickle cell anemia. Baseline hemoglobin of 9-10. -Hemoglobin overall stable Sleep disturbance -Chronic; managed at home on mirtazapine 15 mg p.o. nightly for now Depression/borderline personality disorder -Chronic; managed on fluvoxamine 50 mg p.o. nightly * GERD -Chronic; managed at home on Pepcid 20 mg twice daily * Constipation -Chronic, secondary to chronic opioid use. Milk of Magnesia 4 times daily Code:Full code DVT Prophylaxis:Lovenox 40 mg q24h Plan Overall difficult case her sickle cell crises tend to last for extended periods of time we will continue to work with her daily basis supporting her with fluids oxygenation and pain control disposition is not determined at this time Admission and Anticipated Discharge Date Admission Date: June 27, 2022 Subjective James still with co of 7/10 body pain ,chest back and legs still requiring train dispatcher Physical Exam Physical Exam: Patient awake and alert difficult to read her affect she is very flat affect sp eaks quietly Card exam is regular no murmur rubs lungs are clear without wheeze or crackles abdomen NABS soft nontender Results & Data Results & Data Vital Signs (Past 12 Hours) Vital Signs Temp Pulse Pulse Resp BP Pulse Ox O2 Del Method 07/03/22 14:03 97.9 F 87 14 114/71 100 Room Air 07/03/22 08:11 97.9 F 76 16 99/61 L 95 Room Air PG Care Time/CCT Total # of Minutes Spent Total Time Spent with Patient: Total time spent is greater than 50% in coordination of care (as documented) at patient's floor/unit and/or counseling patient: Coding Level of Care Code 67126 SUB INP/OBS CARE 2/35MIN Diagnoses Vaso-occlusive sickle cell crisis D57.00
[2022-07-03] MEDS: MIRTAZAPINE TAB 15 MG TAB PO SCH (20:48)
[2022-07-03] MEDS: MAGNESIUM OXIDE 400 MG TAB PO SCH (20:48)
[2022-07-03] MEDS: fluvoxaMINE MALEATE 50 MG TAB PO SCH (20:49)
[2022-07-03] MEDS: FOLIC ACID 1 MG TAB PO SCH (20:49)
[2022-07-03] MEDS: ADVANCED PROBIOTIC 1250 MG CAPSULE PO SCH (20:50)
[2022-07-04] MEDS: diphenhydrAMINE Capsule 25 MG CAP PO PRN ×3 (01:55→23:50)
[2022-07-04] MEDS: SODIUM CHLORIDE 0.45 % 1,000 ML IV SCH ×3 (03:30→16:57)
[2022-07-04] MEDS: diphenhydrAMINE 50 MG/ML VIAL IV PRN ×2 (05:17→19:49)
[2022-07-04] MEDS: MAGNESIUM HYDROXIDE SUSP 30 ML UDC PO SCH ×4 (08:36→20:30)
[2022-07-04] MEDS: ENOXAPARIN INJ 40 MG/0.4 ML SYR SQ SCH (08:36)
[2022-07-04] MEDS: AMOXICILLIN/CLAVULANATE 875 MG TAB PO SCH ×2 (08:37→16:57)
[2022-07-04] MEDS: HYDROXYUREA 500 MG CAP PO SCH ×2 (08:37→20:28)
[2022-07-04] MEDS: fentaNYL 12 MCG/HR TDSY TD SCH (08:37)
[2022-07-04] MEDS: TAPENTADOL HCL 50 MG TAB PO SCH ×3 (08:37→20:32)
[2022-07-04] MEDS: CHECK fentaNYL PATCH PLACEMENT SCH ×3 (08:43→23:50)
[2022-07-04] MEDS ORDERED: SODIUM CHLORIDE 0.65% NA SOLN 45 ML (OCEAN) PRN (11:54)
--- NOTE | 2022-07-04 12:00 | Hospitalist Progress Note ---
Date of Service July 04, 2022 Assessment & Plan (1) Vaso-occlusive sickle cell crisis: Plan: Sickle cell disease/sickle cell pain crisis/chronic pain -Acute on chronic issue currently uncontrolled requiring infusions of TYPING SECRETARY Difficult to assess progress in this patient as she has a fairly flat affect and soft voice. Continues to endorse pain and discomfort and significant fatigue Complaining of some abdominal fullness claims to have going to the bathroom on regular basis pending x-ray as could be opiate induced constipation may consider Linzess or Relistor Reinforced oxygen use COVID-19 acute self-limited and stable patient quite shins Paxlovid although very little truly can actable COVID symptoms at this time -Per patient, started approximately 2 weeks ago -abrupt worsening of sinus symptoms c/w secondary bacterial overgrowth, acute sinusitis --> augmentin nasal saline and cough drops Acute on chronic anemia -Secondary to sickle cell anemia. Baseline hemoglobin of 9-10. -Hemoglobin overall stable Sleep disturbance -Chronic; managed at home on mirtazapine 15 mg p.o. nightly for now Patient herself brings up questions of hypoventilation overnight nocturnal studies did not show persistent hypoxic events May benefit from a home or outpatient sleep apnea study Depression/borderline personality disorder -Chronic; managed on fluvoxamine 50 mg p.o. nightly * GERD -Chronic; managed at home on Pepcid 20 mg twice daily * Constipation -Chronic, secondary to chronic opioid use. Milk of Magnesia 4 times daily checking x-ray as she feels her abdomen is more firm today may need to escalate medications Code:Full code DVT Prophylaxis:Lovenox 40 mg q24h Plan Overall difficult case her sickle cell crises tend to last for extended periods of time we will continue to work with her daily basis supporting her with fluids oxygenation and pain control disposition is not determined at this time Admission and Anticipated Discharge Date Admission Date: June 27, 2022 Subjective Very challenging case patient has some improvement in her overall pain rating now 5 out of 10 while on TYPING SECRETARY and with overlapping Nucynta however she now is complaining of abdominal bloating. I suggested possibility of constipation but she feels she is going to the bathroom well pending x-ray. Sinuses are improving she still is congestion and sore throat we will try nasal saline and cough drops Physical Exam Physical Exam: No significant exudates in her throat she does have nasal congestion Abdomen is NABS feels firm like it could be constipation no rebound tenderness no fluid wave Results & Data Results & Data Vital Signs (Past 12 Hours) Vital Signs Temp Pulse Pulse Resp BP Pulse Ox O2 Del Method 07/04/22 08:21 98.2 F 80 16 100/64 99 Room Air 07/04/22 03:28 97.9 F 82 16 103/63 95 Room Air PG Care Time/CCT Total # of Minutes Spent Total Time Spent with Patient: Total time spent is greater than 50% in coordination of care (as documented) at patient's floor/unit and/or counseling patient: Coding Level of Care Code 24109 SUB INP/OBS CARE 2/35MIN Diagnoses Vaso-occlusive sickle cell crisis D57.00
--- NOTE | 2022-07-04 13:52 | XRay Report ---
CHEST AND ABDOMEN 2 VIEWS HISTORY: eval for constipation COMPARISON: Chest 06/29/2022. Abdomen and pelvis CT 12/20/2021. FINDINGS: The lungs are clear. The cardiomediastinal silhouette is within normal limits. There is no pneumoperitoneum or pneumatosis. The bowel gas pattern is unremarkable. No evidence for b owel obstruction. There is a left total hip arthroplasty. Endplate deformities again noted consistent the patient's history of sickle cell disease. Calcifications in the deep pelvis consistent with phle boliths. No renal or ureteral calculi identified. There is moderate fecal retention. IMPRESSION: 1. No acute process within the chest. 2. No evidence for a bowel obstruction. 3. Moderate fecal retention. ACT 112: Negative or not required by law. Electronically signed by: Cortes Fletcher M.D. 07/04/2022 1:51 PM
[2022-07-04] MEDS: HYDROmorphone PCA 30 MG/30 ML IV PRN (17:22)
[2022-07-04] MEDS: COUGH DROP (SUGAR FREE) LOZ 24 LOZ/1 BOX BUCCAL PRN (20:29)
[2022-07-04] MEDS: MAGNESIUM OXIDE 400 MG TAB PO SCH (20:30)
[2022-07-04] MEDS: ADVANCED PROBIOTIC 1250 MG CAPSULE PO SCH (20:30)
[2022-07-04] MEDS: FOLIC ACID 1 MG TAB PO SCH (20:30)
[2022-07-04] MEDS: MIRTAZAPINE TAB 15 MG TAB PO SCH (20:31)
[2022-07-04] MEDS: fluvoxaMINE MALEATE 50 MG TAB PO SCH (20:31)
[2022-07-04] MEDS: POLYETHYLENE (MIRALAX) 17 GM PACK PO SCH (20:32)
[2022-07-04] MEDS ORDERED: linaCLOtide 72 MCG CAPSULE PO ONE (21:00)
[2022-07-04] MEDS ORDERED: SIMETHICONE 80 MG CHEW PO PRN (22:40)
[2022-07-05] MEDS: CHLORASEPTIC 1.4% SOLN 180 ML BTL MT PRN ×2 (01:18→12:22)
[2022-07-05] MEDS: SODIUM CHLORIDE 0.45 % 1,000 ML IV SCH ×4 (01:19→23:34)
[2022-07-05] MEDS: diphenhydrAMINE Capsule 25 MG CAP PO PRN ×3 (06:21→23:34)
[2022-07-05] MEDS: POLYETHYLENE (MIRALAX) 17 GM PACK PO SCH ×2 (08:24→20:17)
[2022-07-05] MEDS: ENOXAPARIN INJ 40 MG/0.4 ML SYR SQ SCH (08:24)
[2022-07-05] MEDS: AMOXICILLIN/CLAVULANATE 875 MG TAB PO SCH ×2 (08:25→16:28)
[2022-07-05] MEDS: CHECK fentaNYL PATCH PLACEMENT SCH ×3 (08:26→23:26)
[2022-07-05] MEDS: HYDROXYUREA 500 MG CAP PO SCH ×2 (08:26→20:13)
[2022-07-05] MEDS: MAGNESIUM HYDROXIDE SUSP 30 ML UDC PO SCH ×4 (08:26→20:17)
[2022-07-05] MEDS: TAPENTADOL HCL 50 MG TAB PO SCH ×3 (08:29→20:12)
[2022-07-05] MEDS: COUGH DROP (SUGAR FREE) LOZ 24 LOZ/1 BOX BUCCAL PRN (12:22)
[2022-07-05] MEDS ORDERED: diphenhydrAMINE 50 MG/ML VIAL IV SCH (18:30)
[2022-07-05 19:03] LABS: Hematocrit (blood only) 21.6 % (37.0-47.0); Hemoglobin 8.1 g/dl (12.0-16.0)
[2022-07-05 19:13] LABS: Anion Gap 6 (3-11); BUN Creatinine Ratio 9.1 (10-20); Blood Urea Nitrogen 4 mg/dl (6-23); Calcium 8.8 mg/dl (8.6-10.3); Carbon Dioxide 29 mmol/L (21-32); Chloride 101 mmol/L (98-107); Creatinine Clr Calc Pharmacy 186.2 ml/min; Est GFR (African American) > 150.0 ml/min; Est GFR (Non-African American) 142.3 ml/min; Glucose 114 mg/dl (70-99(Fasting)); Potassium 3.6 mmol/L (3.5-5.1); Sodium 136 mmol/L (136-145)
[2022-07-05] MEDS: diphenhydrAMINE 50 MG/ML VIAL IV PRN (19:24)
[2022-07-05] MEDS: FOLIC ACID 1 MG TAB PO SCH (20:13)
[2022-07-05] MEDS: ADVANCED PROBIOTIC 1250 MG CAPSULE PO SCH (20:14)
[2022-07-05] MEDS: MIRTAZAPINE TAB 15 MG TAB PO SCH (20:14)
[2022-07-05] MEDS: MAGNESIUM OXIDE 400 MG TAB PO SCH (20:15)
[2022-07-05] MEDS: fluvoxaMINE MALEATE 50 MG TAB PO SCH (20:15)
[2022-07-05] MEDS: FIRST - Mouthwash BLM 119 ML PO SCH (21:47)
--- NOTE | 2022-07-05 22:51 | Hospitalist Progress Note ---
Date of Service July 05, 2022 Assessment & Plan (1) Vaso-occlusive sickle cell crisis: Plan: Sickle cell disease/sickle cell pain crisis/chronic pain -Acute on chronic issue currently uncontrolled requiring infusions of SQL ANALYST Difficult to assess progress in this patient as she has a fairly flat affect and soft voice. Continues to endorse pain and discomfort and significant fatigue Complaining of some abdominal fullness claims to have going to the bathroom on regular basis pending x-ray as could be opiate induced constipation may consider Linzess or Relistor Added miralax, patient will take it on 07/05 Reinforced oxygen use COVID-19 acute self-limited and stable patient quite shins Paxlovid although very little truly can actable COVID symptoms at this time -Per patient, started approximately 2 weeks ago -abrupt worsening of sinus symptoms c/w secondary bacterial overgrowth, acute sinusitis --> augmentin nasal saline and cough drops Acute on chronic anemia -Secondary to sickle cell anemia. Baseline hemoglobin of 9-10. -Hemoglobin overall stable Sleep disturbance -Chronic; managed at home on mirtazapine 15 mg p.o. nightly for now Patient herself brings up questions of hypoventilation overnight nocturnal studies did not show persistent hypoxic events May benefit from a home or outpatient sleep apnea study Depression/borderline personality disorder -Chronic; managed on fluvoxamine 50 mg p.o. nightly * GERD -Chronic; managed at home on Pepcid 20 mg twice daily * Constipation -Chronic, secondary to chronic opioid use. Milk of Magnesia 4 times daily checking x-ray as she feels her abdomen is more firm today may need to escalate medications Code:Full code DVT Prophylaxis:Lovenox 40 mg q24h Plan Overall difficult case her sickle cell crises tend to last for extended periods of time we will continue to work with her daily basis supporting her with fluids oxygenation and pain control disposition is not determined at this time Admission and Anticipated Discharge Date Admission Date: June 27, 2022 Subjective Patient continues to feel bloated, she has no new symptoms. Review of Systems Review of Systems: All systems reviewed & are unremarkable except as noted in HPI & below Physical Exam Physical Exam: No significant exudates in her throat she does have nasal congestion Abdomen is NABS feels firm like it could be constipation no rebound tenderness no fluid wave Results & Data Results & Data Vital Signs (Past 12 Hours) Vital Signs Temp Pulse Resp BP BP Pulse Ox O2 Del Method 07/05/22 20:09 37.2 C 89 14 112/71 95 Room Air 07/05/22 16:30 36.5 C 96 H 16 118/78 96 Room Air 07/05/22 12:19 36.8 C 83 18 105/72 96 Room Air PG Care Time/CCT Total # of Minutes Spent Total Time Spent with Patient: Total time spent is greater than 50% in coordination of care (as documented) at patient's floor/unit and/or counseling patient: Coding Level of Care Code 71906 SUB INP/OBS CARE 2/35MIN Diagnoses Vaso-occlusive sickle cell crisis D57.00
[2022-07-06] MEDS: diphenhydrAMINE 50 MG/ML VIAL IV PRN ×4 (02:44→17:14)
[2022-07-06] MEDS: HYDROmorphone PCA 30 MG/30 ML IV PRN (04:00)
[2022-07-06 06:17] LABS: Anion Gap 4 (3-11); BUN Creatinine Ratio 12.8 (10-20); Blood Urea Nitrogen 6 mg/dl (6-23); Calcium 8.8 mg/dl (8.6-10.3); Carbon Dioxide 29 mmol/L (21-32); Chloride 104 mmol/L (98-107); Creatinine Clr Calc Pharmacy 174.3 ml/min; Est GFR (African American) > 150.0 ml/min; Est GFR (Non-African American) 139.2 ml/min; Glucose 126 mg/dl (70-99(Fasting)); Potassium 3.5 mmol/L (3.5-5.1); Sodium 137 mmol/L (136-145)
[2022-07-06 06:33] LABS: Hematocrit (blood only) 19.9 % (37.0-47.0); Hemoglobin 7.3 g/dl (12.0-16.0); Mean Corpuscular Hgb Conc 36.7 g/dL (32.0-36.0); Mean Corpuscular Volume 106.4 fL (80.0-100.0); Mean Platelet Volume 9.5 fL (9.4-12.4); Nucleated RBC # (auto) 0.76 K/uL (0-0.12); Nucleated RBC % (auto) 17.6 %; Platelet Count 267 K/uL (130-400); RDW Coefficient of Variation 19.4 % (11.5-14.5); RDW Standard Deviation 72.7 fL (36.4-46.3); Red Blood Count 1.87 M/uL (4.20-5.40); White Blood Count 4.32 K/ul (4.8-10.8)
[2022-07-06] MEDS: CHECK fentaNYL PATCH PLACEMENT SCH ×2 (07:47→16:11)
[2022-07-06] MEDS: SODIUM CHLORIDE 0.45 % 1,000 ML IV SCH ×2 (07:47→16:11)
[2022-07-06] MEDS: TAPENTADOL HCL 50 MG TAB PO SCH ×3 (08:52→20:31)
[2022-07-06] MEDS: MAGNESIUM HYDROXIDE SUSP 30 ML UDC PO SCH ×4 (08:52→20:32)
[2022-07-06] MEDS: FIRST - Mouthwash BLM 119 ML PO SCH ×4 (08:53→20:18)
[2022-07-06] MEDS: ENOXAPARIN INJ 40 MG/0.4 ML SYR SQ SCH (08:53)
[2022-07-06] MEDS: AMOXICILLIN/CLAVULANATE 875 MG TAB PO SCH ×2 (08:53→17:14)
[2022-07-06] MEDS: POLYETHYLENE (MIRALAX) 17 GM PACK PO SCH ×2 (08:53→20:21)
[2022-07-06] MEDS: HYDROXYUREA 500 MG CAP PO SCH ×2 (09:01→20:20)
[2022-07-06] MEDS ORDERED: SODIUM CHLORIDE 0.9% 250 ML IV PRN ×2 (11:30→23:09)
[2022-07-06] MEDS: MIRTAZAPINE TAB 15 MG TAB PO SCH (20:18)
[2022-07-06] MEDS: MAGNESIUM OXIDE 400 MG TAB PO SCH (20:18)
[2022-07-06] MEDS: ADVANCED PROBIOTIC 1250 MG CAPSULE PO SCH (20:19)
[2022-07-06] MEDS: fluvoxaMINE MALEATE 50 MG TAB PO SCH (20:20)
[2022-07-06] MEDS: FOLIC ACID 1 MG TAB PO SCH (20:20)
[2022-07-06] MEDS: diphenhydrAMINE Capsule 25 MG CAP PO PRN (22:14)
--- NOTE | 2022-07-06 23:03 | Hospitalist Progress Note ---
Date of Service July 06, 2022 Assessment & Plan (1) Vaso-occlusive sickle cell crisis: Plan: Sickle cell disease/sickle cell pain crisis/chronic pain -Acute on chronic issue currently uncontrolled requiring infusions of TRANSIT SPECIALIST Difficult to assess progress in this patient as she has a fairly flat affect and soft voice. Continues to endorse pain and discomfort and significant fatigue Complaining of some abdominal fullness claims to have going to the bathroom on regular basis pending x-ray as could be opiate induced constipation may consider Linzess or Relistor Added miralax, patient will take it on 07/05 Reinforced oxygen use Patient is on room air. COVID-19 acute self-limited and stable patient quite shins Paxlovid although very little truly can actable COVID symptoms at this time -Per patient, started approximately 2 weeks ago -abrupt worsening of sinus symptoms c/w secondary bacterial overgrowth, acute sinusitis --> augmentin nasal saline and cough drops Acute on chronic anemia -Secondary to sickle cell anemia. Baseline hemoglobin of 9-10. -Hemoglobin overall stable Sleep disturbance -Chronic; managed at home on mirtazapine 15 mg p.o. nightly for now Patient herself brings up questions of hypoventilation overnight nocturnal studies did not show persistent hypoxic events May benefit from a home or outpatient sleep apnea study Depression/borderline personality disorder -Chronic; managed on fluvoxamine 50 mg p.o. nightly * GERD -Chronic; managed at home on Pepcid 20 mg twice daily * Constipation -Chronic, secondary to chronic opioid use. Milk of Magnesia 4 times daily checking x-ray as she feels her abdomen is more firm today may need to escalate medications Appears to be improving with the miralax. Code:Full code DVT Prophylaxis:Lovenox 40 mg q24h Admission and Anticipated Discharge Date Admission Date: June 27, 2022 Subjective Patient reports feeling better. Review of Systems Review of Systems: All systems reviewed & are unremarkable except as noted in HPI & below Physical Exam Physical Exam: No significant exudates in her throat she does have nasal congestion Abdomen is NABS feels firm like it could be constipation no rebound tenderness no fluid wave Results & Data Results & Data Vital Signs (Past 12 Hours) Vital Signs Temp Pulse Resp BP Pulse Ox O2 Del Method 07/06/22 21:52 36.8 C 86 15 106/68 96 Room Air 07/06/22 19:15 36.7 C 93 H 18 107/69 93 Room Air 07/06/22 14:46 36.5 C 86 16 110/69 97 Room Air 07/06/22 11:43 36.7 C 92 H 18 107/68 100 Room Air PG Care Time/CCT Total # of Minutes Spent Total Time Spent with Patient: Total time spent is greater than 50% in coordination of care (as documented) at patient's floor/unit and/or counseling patient: Coding Level of Care Code 91806 SUB INP/OBS CARE 2/35MIN Diagnoses Vaso-occlusive sickle cell crisis D57.00
[2022-07-07] MEDS: CHECK fentaNYL PATCH PLACEMENT SCH ×3 (00:09→16:10)
[2022-07-07] MEDS: SODIUM CHLORIDE 0.45 % 1,000 ML IV SCH ×3 (00:10→17:37)
[2022-07-07 08:43] LABS: Hematocrit (blood only) 21.3 % (37.0-47.0); Hemoglobin 7.9 g/dl (12.0-16.0); Mean Corpuscular Hemoglobin 40.3 pg (25.0-34.0); Mean Corpuscular Hgb Conc 37.1 g/dL (32.0-36.0); Mean Corpuscular Volume 108.7 fL (80.0-100.0); Mean Platelet Volume 9.5 fL (9.4-12.4); Platelet Count 274 K/uL (130-400); RDW Coefficient of Variation 20.2 % (11.5-14.5); RDW Standard Deviation 79.2 fL (36.4-46.3); Red Blood Count 1.96 M/uL (4.20-5.40)
[2022-07-07] MEDS: diphenhydrAMINE Capsule 25 MG CAP PO PRN (08:47)
[2022-07-07] MEDS: ENOXAPARIN INJ 40 MG/0.4 ML SYR SQ SCH (08:47)
[2022-07-07] MEDS: TAPENTADOL HCL 50 MG TAB PO SCH ×3 (08:47→20:34)
[2022-07-07] MEDS: MAGNESIUM HYDROXIDE SUSP 30 ML UDC PO SCH ×4 (08:47→20:37)
[2022-07-07] MEDS: FIRST - Mouthwash BLM 119 ML PO SCH ×4 (08:47→20:33)
[2022-07-07] MEDS: POLYETHYLENE (MIRALAX) 17 GM PACK PO SCH ×2 (08:47→20:34)
[2022-07-07] MEDS: AMOXICILLIN/CLAVULANATE 875 MG TAB PO SCH ×2 (08:48→17:36)
[2022-07-07] MEDS: HYDROXYUREA 500 MG CAP PO SCH ×2 (08:48→20:36)
[2022-07-07] MEDS: fentaNYL 12 MCG/HR TDSY TD SCH (08:55)
[2022-07-07 09:09] LABS: Nucleated RBC # (auto) 1.05 K/uL (0-0.12); Nucleated RBC % (auto) 23.6 %; White Blood Count 4.45 K/ul (4.8-10.8)
[2022-07-07] MEDS: HYDROmorphone PCA 30 MG/30 ML IV PRN (14:13)
[2022-07-07] MEDS: diphenhydrAMINE 50 MG/ML VIAL IV PRN ×3 (14:15→23:20)
[2022-07-07] MEDS: fluvoxaMINE MALEATE 50 MG TAB PO SCH (20:33)
[2022-07-07] MEDS: ADVANCED PROBIOTIC 1250 MG CAPSULE PO SCH (20:34)
[2022-07-07] MEDS: MIRTAZAPINE TAB 15 MG TAB PO SCH (20:35)
[2022-07-07] MEDS: FOLIC ACID 1 MG TAB PO SCH (20:36)
[2022-07-07] MEDS: MAGNESIUM OXIDE 400 MG TAB PO SCH (20:36)
--- NOTE | 2022-07-07 21:16 | Hospitalist Progress Note ---
Date of Service July 07, 2022 Assessment & Plan (1) Vaso-occlusive sickle cell crisis: Plan: Sickle cell disease/sickle cell pain crisis/chronic pain -Acute on chronic issue currently uncontrolled requiring infusions of THRASHER FEEDER Difficult to assess progress in this patient as she has a fairly flat affect and soft voice. Continues to endorse pain and discomfort and significant fatigue Complaining of some abdominal fullness claims to have going to the bathroom on regular basis pending x-ray as could be opiate induced constipation may consider Linzess or Relistor Added miralax, patient started taking this on 07/05 Symptoms have improved since then. Patient is on room air. Resumed IV benadryl. Anticipate discharge in next 48-72 hours. COVID-19 acute self-limited and stable patient quite shins Paxlovid although v rosario little truly can actable COVID symptoms at this time -Per patient, started approximately 2 weeks ago -abrupt worsening of sinus symptoms c/w secondary bacterial overgrowth, acute sinusitis --> augmentin nasal saline and cough drops continue augmentin, today is day 7. Also on magic mouth wash Acute on chronic anemia -Secondary to sickle cell anemia. Baseline hemoglobin of 9-10. -Hemoglobin overall stable: below 8, will transfuse 1 unti of PRBC. Sleep disturbance -Chronic; managed at home on mirtazapine 15 mg p.o. nightly for now Patient herself brings up questions of hypoventilation overnight nocturnal studies did not show persistent hypoxic events May benefit from a home or outpatient sleep apnea study Depression/borderline personality disorder -Chronic; managed on fluvoxamine 50 mg p.o. nightly * GERD -Chronic; managed at home on Pepcid 20 mg twice daily * Constipation -Chronic, secondary to chronic opioid use. Milk of Magnesia 4 times daily checking x-ray as she feels her abdomen is more firm today may need to escalate medications Appears to be improving with the miralax. Code:Full code DVT Prophylaxis:Lovenox 40 mg q24h Admission and Anticipated Discharge Date Admission Date: June 27, 2022 Subjective 21 yo female reports that her pain and abdominal distention has improved as compared to the day prior. Review of Systems Review of Systems: All systems reviewed & are unremarkable except as noted in HPI & below Physical Exam Physical Exam: No significant exudates in her throat she does have nasal congestion Abdomen is NABS feels firm like it could be constipation no rebound tenderness no fluid wave Results & Data Results & Data Vital Signs (Past 12 Hours) Vital Signs Temp Pulse Resp BP Pulse Ox Pulse Ox O2 Del Method 07/07/22 15:04 37 C 87 18 107/63 100 Room Air 07/07/22 12:00 36.9 C 92 H 18 111/70 97 Room Air 07/07/22 10:00 99 O2 Del Method 07/07/22 15:04 07/07/22 12:00 07/07/22 10:00 Room Air PG Care Time/CCT Total # of Minutes Spent Total Time Spent with Patient: Total time spent is greater than 50% in coordination of care (as documented) at patient's floor/unit and/or counseling patient: Coding Level of Care Code 47007 SUB INP/OBS CARE 3/50MIN Diagnoses Vaso-occlusive sickle cell crisis D57.00
[2022-07-08] MEDS: CHECK fentaNYL PATCH PLACEMENT SCH ×3 (00:01→16:13)
[2022-07-08] MEDS: SODIUM CHLORIDE 0.45 % 1,000 ML IV SCH ×3 (02:18→17:38)
[2022-07-08 07:30] LABS: Hematocrit (blood only) 20.9 % (37.0-47.0); Hemoglobin 7.8 g/dl (12.0-16.0); Mean Corpuscular Hemoglobin 40.4 pg (25.0-34.0); Mean Corpuscular Hgb Conc 37.3 g/dL (32.0-36.0); Mean Corpuscular Volume 108.3 fL (80.0-100.0); Nucleated RBC # (auto) 1.41 K/uL (0-0.12); Nucleated RBC % (auto) 25.1 %; Platelet Count 294 K/uL (130-400); RDW Coefficient of Variation 20.3 % (11.5-14.5); RDW Standard Deviation 78.5 fL (36.4-46.3); Red Blood Count 1.93 M/uL (4.20-5.40); White Blood Count 5.62 K/ul (4.8-10.8)
[2022-07-08] MEDS: FIRST - Mouthwash BLM 119 ML PO SCH ×4 (09:10→21:41)
[2022-07-08] MEDS: POLYETHYLENE (MIRALAX) 17 GM PACK PO SCH (09:10)
[2022-07-08] MEDS: TAPENTADOL HCL 50 MG TAB PO SCH ×2 (09:10→14:56)
[2022-07-08] MEDS: ENOXAPARIN INJ 40 MG/0.4 ML SYR SQ SCH (09:10)
[2022-07-08] MEDS: MAGNESIUM HYDROXIDE SUSP 30 ML UDC PO SCH ×4 (09:11→21:44)
[2022-07-08] MEDS: AMOXICILLIN/CLAVULANATE 875 MG TAB PO SCH ×2 (09:11→17:30)
[2022-07-08] MEDS: diphenhydrAMINE 50 MG/ML VIAL IV PRN ×3 (09:31→21:40)
[2022-07-08] MEDS: HYDROXYUREA 500 MG CAP PO SCH ×2 (09:42→21:42)
--- NOTE | 2022-07-08 15:11 | Hospitalist Progress Note ---
Date of Service July 08, 2022 Assessment & Plan (1) Vaso-occlusive sickle cell crisis: Plan: Sickle cell disease/sickle cell pain crisis/chronic pain -developing pain crisis with generalized pain suspect due to COVID infection. Afebrile. Pain better controlled on VOIP ENGINEER pump. -cont. VOIP ENGINEER pump + home fentanyl patch. Discontinued Nucynta. -cont. 1/2NSS maintenance -cont. folic acid and hydroxyurea -trend H&H COVID-19 -Per patient, symptoms started approximately 2 weeks ago. Never tested for covid until hospitalization and found to be covid positive. -abrupt worsening of sinus symptoms c/w secondary bacterial overgrowth, acute sinusitis --> d/c augmentin completed 7 days. Cont. nasal saline and cough drops -supportive tx otherwise Acute on chronic anemia -Secondary to sickle cell anemia.Baseline hemoglobin of 9-10 -cont. to monitor Sleep disturbance -Chronic; cont. home mirtazapine -Patient herself brings up questions of hypoventilation overnight nocturnal studies did not show persistent hypoxic events -May benefit from a home or outpatient sleep apnea study Depression/borderline personality disorder -Chronic; cont. home fluvoxamine GERD -Chronic; cont. home Pepcid Constipation -Chronic, secondary to chronic opioid use.Cont. milk of mag and miralax. DVT ppx: Lovenox FEN/GI: regular Code Status: full Dispo: med surg Admission and Anticipated Discharge Date Admission Date: June 27, 2022 Supervising Physician Co-Signing Physician Notes I personally examined the patient and verified all amaro points of history and exam, discussed case, and agree with decision making with Dr Bailey overall slwoly feeling better vitals noted nad heent nc at mmm breathing unlabored no accessory muscles good effort skin no rashes no pallor or icterus Sickle cell with acute pain crisisslowly improving. Continue current care overall. She is going to try to start to space out her Dilaudid more. Thanks for her chronic pain management she may want to stay on the same regimen for now rather than cycling narcoticsalthough aware that can definitely be an option as she starts to feel some degree of tolerance. COVID-19 with secondary bacterial sinusitisoverall improving. Otherwise as above Subjective Patient seen at bedside this morning. Feeling a little better than prior but still in generalized pain. Eating well. BMs normal. Denies fever, sob, chest pain. Review of Systems Review of Systems: All systems reviewed & are unremarkable except as noted in HPI & below Physical Exam Physical Exam: Constitutional: in no acute distress, pleasant, intact memory. Vitals as above. HEENT: No scleral injection or discharge.Moist mucous membranes. Neck: Supple without lymphadenopathy or thyromegaly. Trachea midline. Lungs: Clear to auscultation bilaterally with good effort. Cardiac: Regular rate and rhythm. Abdomen: Soft, nontender, and nondistended.No guarding. Skin: No rashes, warm, dry. Neurologic:Grossly intact cranial nerves Results & Data Results & Data Vital Signs (Past 12 Hours) Vital Signs Temp Pulse Resp BP Pulse Ox Pulse Ox O2 Del Method 07/08/22 11:50 36.7 C 87 18 100/63 100 Room Air 07/08/22 09:30 Room Air 07/08/22 10:00 99 07/08/22 08:07 36.6 C 73 18 92/58 L 100 Room Air O2 Del Method 07/08/22 11:50 07/08/22 09:30 07/08/22 10:00 Room Air 07/08/22 08:07 Laboratory Results 07/08/22 Range/Units 06:05 WBC 5.62 (4.8-10.8) K/ul RBC 1.93 L (4.20-5.40) M/uL Hgb 7.8 L (12.0-16.0) g/dl Hct 20.9 L* (37.0-47.0) % MCV 108.3 H (80.0-100.0) fL MCH 40.4 H (25.0-34.0) pg MCHC 37.3 H (32.0-36.0) g/dL RDW Std Deviation 78.5 H (36.4-46.3) fL RDW Coeff of Nando 20.3 H (11.5-14.5) % Plt Count 294 (130-400) K/uL MPV 10.0 (9.4-12.4) fL Absolute Nucleated RBC 1.41 H (0-0.12) K/uL Nucleated RBC % (auto) 25.1 % Resident Activity Tracking Resident Involvement: Resident Care Provided Care Provided: Adult Hospital Medicine
--- NOTE | 2022-07-08 18:55 | Billing Data ---
Date of Service July 08, 2022 Coding Level of Care Code 50305 SUB INP/OBS CARE
[2022-07-08] MEDS: fluvoxaMINE MALEATE 50 MG TAB PO SCH (21:41)
[2022-07-08] MEDS: ADVANCED PROBIOTIC 1250 MG CAPSULE PO SCH (21:42)
[2022-07-08] MEDS: MIRTAZAPINE TAB 15 MG TAB PO SCH (21:43)
[2022-07-08] MEDS: MAGNESIUM OXIDE 400 MG TAB PO SCH (21:43)
[2022-07-08] MEDS: FOLIC ACID 1 MG TAB PO SCH (21:43)
[2022-07-08] MEDS ORDERED: HYDROmorphone INJ 1 MG/ML SYRINGE IV PRN (22:25)
--- NOTE | 2022-07-08 23:06 | Communication Note ---
Date of Service: July 08, 2022 I was informed by RN and RN warehouse and receiving supervisor that patient reported frustration with her hospital care, particularly regarding STATION BAGGAGE AGENT pump/IV fluid administration. She had requested to speak to physician and stated she would leave AMA. Pt also requested new nurse which was not feasible at current time given staffing limitations. She had removed her IV and attempted to exit facility despite multiple attempts by nursing staff to redirect her. I was asked to come see patient. On my way to see the patient, I was informed she had already left and was located at the front of the hospital. I did attempt to locate the patient at the front of the hospital but did not see her there. I then spoke with RN and RN warehouse and receiving supervisor about the sequence of events which had transpired earlier (please see their nurse note for further detail). After discussion with security, it was learned that patient did secure [employer] transport and had departed from hospital campus. Nursing team did inform patient if she were to leave, she would need to be re- admitted through ED. Pt did not sign AMA form before departure. Resident Activity Tracking Resident Involvement: Resident Care Provided Care Provided: Adult Hospital Medicine
--- NOTE | 2022-07-09 14:24 | Discharge Summary ---
Date of Service July 09, 2022 Admission HPI Per Admitting Provider James is a 21-year-old woman with past medical history significant for sickle cell disease with multiple hospitalizations for sickle cell pain crises, GERD, depression, chronic pain, who presents today for fatigue, and increased pain x10 days. She had a mild respiratory infection (mild cough, afebrile, no dyspnea) that preceded her worsening pain. She tried to manage her pain with her home meds (fentanyl patch, p.o. morphine 15 mg 3 times daily) until she could no longer tolerate it, at which point she presented to the emergency room. Upon arrival in the emergency room, vitals were within normal limits. Labs were most notable for elevated LDH of 322. Hemoglobin was at usual baseline, without leukocytosis (WBC-5.4). Basic metabolic panel also appeared normal. Respiratory viral panel revealed positive COVID-19 infection, of which patient was not previously aware. CXR was also negative for acute infectious process. She received IV hydromorphone 1 mg x 2 doses as well as a 1 L bolus of IV normal saline. Hospitalist service was then consulted for admission. On admission, she continues to report some nausea, fatigue, as well as diffuse chest, abdominal, back, and LE pain but denies shortness of breath at rest or exertion, or dysuria. 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 Afebrile. Pain better controlled on AIR TABLE OPERATOR pump. -cont. AIR TABLE OPERATOR pump + home fentanyl patch. Discontinued Nucynta. -cont. 1/2NSS maintenance -cont. folic acid and hydroxyurea -trend H&H COVID-19 -Per patient, symptoms started approximately 2 weeks ago. Never tested for covid until hospitalization and found to be covid positive. -abrupt worsening of sinus symptoms c/w secondary bacterial overgrowth, acute sinusitis --> d/c augmentin completed 7 days. Cont. nasal saline and cough drops -supportive tx otherwise Acute on chronic anemia -Secondary to sickle cell anemia.Baseline hemoglobin of 9-10 -cont. to monitor Sleep disturbance -Chronic; cont. home mirtazapine -Patient herself brings up questions of hypoventilation overnight nocturnal studies did not show persistent hypoxic events -May benefit from a home or outpatient sleep apnea study Depression/borderline personality disorder -Chronic; cont. home fluvoxamine GERD -Chronic; cont. home Pepcid Constipation -Chronic, secondary to chronic opioid use.Cont. milk of mag and miralax. Dispo: Patient elected to leave AMA overnight on 07/08 due to reported dissatisfaction with her care. Overnight resident was on his way to discuss concerns with patients but she ultimately left prior to doing so. Thankfully, she had continued to be hemodynamically stable during her stay and expect that she will be at low risk for significant complications due to her leaving AMA. Total Time Total Time Spent Total Time Spent (In Minutes): not seen - left AMA Discharge Plan Discharge Items Patient Disposition: Against Medical Advice Reason For Visit: RESPIRATORY ILLNESS Activity: Resume your previous activity Non-emergency contact: Primary Care Provider Follow-up/Referrals: Jaret Garland MD [Primary Care Provider] - Pending Studies at Discharge: No Stand-Alone Forms: My [facility] Medications and DC Order Prescriptions: Continued ondansetron HCl 4 mg tablet 4 mg PO Q6 PRN (Reason: nausea) Qty: 20 1RF Rx Instructions: Post-op med (DME) Parvez Mackay Misc See Rx Instructions .MEDSUPPLY Qty: 1 0RF Rx Instructions: As directed polyethylene glycol 3350 17 gram/dose powder 17 g PO DAILY PRN (Reason: Constipation) meclizine 25 mg tablet 25 mg PO TID PRN (Reason: Dizziness) mirtazapine [Remeron] 15 mg tablet 15 mg PO HS Qty: 30 0RF morphine 15 mg tablet 15 mg PO Q8H PRN (Reason: pain) Qty: 90 0RF fentanyl 12 mcg/hr Patch 72 Hour 12 mcg transdermal Q3D Qty: 10 0RF Rx Instructions: CHANGED 06/25/22 naloxone [Narcan] 4 mg/actuation spray,non-aerosol 4 mg INTRANASAL UD PRN (Reason: opiod overdose) Qty: 2 0RF magnesium glycinate 100 mg Tablet 200 mg PO HS magnesium oxide 400 mg magnesium Tablet 400 mg PO HS acetaminophen 500 mg capsule 1,000 mg PO TID PRN (Reason: Pain) Rx Instructions: Take 3 times per day to lessen pain. Post-op med fluvoxamine 50 mg tablet 50 mg PO HS Rx Instructions: STARTED 06/21/22 FOR 4 TO 7 NIGHTS, PER PT WILL INCREASE TO 100 MG ON 06/28/22. hydroxyurea [Hydrea] 500 mg capsule 1,000 mg PO BID folic acid 1 mg Tablet 2 mg PO HS Daily Probiotic 2.5 billion cell Capsule 2 cap PO HS Discharge Orders: Left Against Medical Advice (Routine); Ordered 07/09/22 Ordered By: Quintin Hernandez Admission Data Admit Date/Time: 06/27/22 17:29 Attending Provider: Cesar Kerr Admit Provider: Chao Shoemaker Primary Care Provider: Jaret Garland Other Providers: Cesar Kerr Supervising Physician Co-Signing Physician Notes chart reviewed, case d/w resident physicians - left AMA rather abruptly last night. Resident Activity Tracking Resident Involvement: Resident Care Provided Care Provided: Adult Hospital Medicine
== END 2022-07-08 22:40 | disposition left against medical advice (07) | DRG 177 ==
LOC: ED 13:37 → SUATTDRO 17:29 → 3E 17:29